=== PATIENT | female | born 1985 ===

== ENCOUNTER 2020-06-02 18:32 | Emergency (ER) | payer OTHER, SELFPAY ==
[2020-06-02 18:45] VITALS: BP 137/85; BP 168/90; PULSE 110; PULSE 99; RESP 16; TEMP 36.8; O2SAT 97; BMI 48.3
--- NOTE | 2020-06-02 19:01 | ED.PSYCH ---
HPI - Psych General Chief Complaint: Psychiatric Symptoms Stated Complaint: SI Time Seen by Provider: 06/02/20 18:56 Source: EMS Mode of arrival: EMS Limitations: no limitations History of Present Illness HPI Narrative: 35-year-old female with a past medical history of adjustment disorder, anxiety, asthma, borderline personality disorder, depression, PTSD, schizoaffective disorder here with suicidal. The patient on to the plan to overdose on her meds are for herself until she bleeds to No HI. No hallucinations. No substance use. No physical complaints. The patient does she has been intermittently compliant with her medications. MD complaint: suicidal ideation and feels depressed Onset (ago): day(s) (1 day) Duration: constant History of same: Yes Relieving factors: none Exacerbating factors: other (saw people on the bus today who brought up her mom who was a druggie ) Associated psychiatric symptoms: depression and suicidal ideation Treatments prior to arrival: none Related Data Home Medications Medication Instructions Recorded Confirmed albuterol sulfate 2 puff INHALATION Q4-6H PRN 05/15/20 06/02/20 benztropine 1 mg PO BID 05/15/20 06/02/20 cetirizine 10 mg PO DAILY 05/15/20 06/02/20 chlorpromazine 150 mg PO BID PRN 05/15/20 06/02/20 diphenhydramine HCl 100 mg PO BEDTIME 05/15/20 06/02/20 docusate sodium 200 mg PO BID 05/15/20 06/02/20 duloxetine 60 mg PO DAILY 05/15/20 06/02/20 gabapentin 600 mg PO BEDTIME 05/15/20 06/02/20 haloperidol decanoate 100 mg IM Q4W 05/15/20 06/02/20 hydroxyzine pamoate 50 mg PO BID PRN 05/15/20 06/02/20 lithium carbonate 600 mg PO BEDTIME 05/15/20 06/02/20 mirtazapine 7.5 mg PO BEDTIME 05/15/20 06/02/20 olanzapine 20 mg PO BEDTIME 05/15/20 06/02/20 omeprazole 20 mg PO DAILY@0630 05/15/20 06/02/20 prazosin 5 mg PO BEDTIME 05/15/20 06/02/20 acetaminophen 1 tab PO Q6H PRN 06/02/20 06/02/20 buspirone 30 mg PO BID 06/02/20 06/02/20 trazodone 100 mg PO BEDTIME 06/02/20 06/02/20 zolpidem 12.5 mg PO BEDTIME 06/02/20 06/02/20 Allergies Allergy/AdvReac Type Severity Reaction Status Date / Time carbamazepine [From TEGRETOL] AdvReac Unknown NAUSEA & Verified 06/02/20 19:50 VOMITING topiramate [From TOPAMAX] AdvReac Unknown NAUSEA & Verified 06/02/20 19:50 VOMITING Review of Systems Review of Systems: Yes all other systems are reviewed and are negative Constitutional: Constitutional: Reports no additional constitutional complaints, Denies body ache(s), Denies chills, Denies fever(s), Denies headache(s) and Denies weakness Eyes: Eyes: Reports no additional eye complaints and Denies change in vision ENT: Reports system reviewed and no additional complaints, except as documented, Denies dizziness, Denies headache(s), Denies nasal congestion, Denies nasal discharge and Denies neck pain Cardiovascular: Cardiovascular: Reports no additional cardiovascular complaints, Denies chest pain, Denies leg edema and Denies dyspnea Respiratory: Respiratory: Reports no additional respiratory complaints, Denies cough and Denies dyspnea Gastrointestinal: Gastrointestinal: Reports no additional gastrointestinal complaints, Denies abdominal pain, Denies diarrhea, Denies nausea and Denies vomiting Genitourinary: Genitourinary: Reports no additional female genitourinary complaints and Denies urinary incontinence Musculoskeletal: Musculoskeletal: Reports no additional musculoskeletal complaints, Denies back pain, Denies arthralgias, Denies joint swelling, Denies neck pain, Denies numbness and Denies tingling Integumentary/Breasts: Skin/Breast: Reports system reviewed and no additional complaints, except as docu and Denies rash Neurologic: Reports system reviewed and no additional complaints, except as documented, Denies Abnormal speech present, Denies dizziness, Denies headache(s), Denies numbness, Denies tingling and Denies weakness Psychiatric: Psychiatric: Denies anxiety, Reports depression, Denies visual hallucinations, Denies hallucinations, Denies homicidal ideation and Reports suicidal ideation PMFSH Past Medical History Attestation statement: The following information was validated with the patient. Source: old records reviewed and nursing notes reviewed Medical History Adjustment disorder Anxiety Asthma Borderline personality disorder Depression Intentional self-harm PTSD (post-traumatic stress disorder) Schizoaffective disorder Self-harming behavior Suicidal ideation Social History Social History Advance Directives: No Physical Exam Vital Signs: Vital Signs: Vital Signs Temp Pulse Resp BP Pulse Ox 06/02/20 19:45 98.4 F 99 18 106/82 99 06/02/20 18:45 98.3 F 99 16 137/85 97 Body Mass Index 48.3 Const: General: cooperative, healthy appearing, comfortable and no acute distress Orientation/consciousness: patient oriented x3 Limitations: no limitations HENMT: Head: Yes normal to inspection Ears: hearing grossly normal bilaterally General nose exam: Normal external nose present Face and sinus: Yes normal facial exam Mouth: Normal oral and palatal mucosa present Throat: Yes posterior oropharynx normal Eyes: General: appearance normal, both eyes and all related structures Pupils: Equal, round and reactive pupils present Neck: Neck: Yes normal visual inspection Chest: Chest palpation & inspection: normal inspection of the chest Resp: Effort & Inspection: normal respiratory effort Auscultation: clear to auscultation bilaterally Cardio: Rate: regular rate Rhythm: regular rhythm Peripheral pulses: Peripheral pulses 2+ throughout GI: Inspection: Yes normal to inspection Palpation (GI): Soft to palpation and nontender Auscultation: normal bowel sounds Back/Spine/Pelvis: Thoracic/Lumbar Spine: thoracic and lumbar spine normal to inspection Skin: General skin exam: no rashes or lesions noted Neuro: General: patient oriented x3, no focal motor deficits and normal sensation to monofilament Cranial nerves: Yes Equal, round and reactive pupils present Cognition (Neuro): normal cognition Speech: No Abnormal speech present Gait exam (Neuro): Normal gait present Motor exam (neuro): 5/5 motor strength present throughout Extrem: General: Yes normal to inspection Psych: Appearance: disheveled Mental Status: mental status grossly normal Speech and movement: Normal speech and movement present Affect: Blunted affect present Attitude: cooperative Thought process: Normal thought process present Thought content: Suicidality present Course Course Course Narrative: 35-year-old female here with suicidal. No physical complaints. No concerns for acute ingestion or trauma. Will check drug screen, urine and order BHN evaluation. MDM - Psych Restraints Face to Face Assessment: Face to Face Assessment: Current Situation: After assessment of the patient, a review of the pertinent medical record and a discussion with nursing staff, I feel the patient requires a restrain intervention. Reaction To: [] Medical Condition: [] Behavioral State: [] Continued Need: [] Discharge Plan Discharge Clinical Impression: Suicidal ideation, Bipolar disorder Prescriptions: No Action diphenhydramine HCl 50 mg Capsule 100 mg PO BEDTIME RF: 0 cetirizine 10 mg Tablet 10 mg PO DAILY RF: 0 benztropine 1 mg Tablet 1 mg PO BID RF: 0 docusate sodium 100 mg Capsule 200 mg PO BID RF: 0 albuterol sulfate 90 mcg/actuation Hfa Aerosol Inhaler 2 puff INHALATION Q4-6H PRN (Reason: Wheezing) RF: 0 gabapentin 600 mg Tablet 600 mg PO BEDTIME RF: 0 haloperidol decanoate 100 mg/mL Solution 100 mg IM Q4W RF: 0 hydroxyzine pamoate 50 mg Capsule 50 mg PO BID PRN (Reason: Anxiety) RF: 0 lithium carbonate 300 mg Tablet Extended Release 600 mg PO BEDTIME RF: 0 prazosin 5 mg Capsule 5 mg PO BEDTIME RF: 0 omeprazole 20 mg Capsule,Delayed Release(Dr/Ec) 20 mg PO DAILY@0630 RF: 0 olanzapine 20 mg Tablet 20 mg PO BEDTIME RF: 0 mirtazapine 7.5 mg Tablet 7.5 mg PO BEDTIME RF: 0 duloxetine 60 mg Capsule,Delayed Release(Dr/Ec) 60 mg PO DAILY RF: 0 chlorpromazine 50 mg Tablet 150 mg PO BID PRN (Reason: Agitation) RF: 0 acetaminophen 500 mg tablet 1 tab PO Q6H PRN (Reason: pain) RF: 0 trazodone 100 mg tablet 100 mg PO BEDTIME RF: 0 buspirone 30 mg tablet 30 mg PO BID RF: 0 zolpidem 12.5 mg tablet,ext release multiphase 12.5 mg PO BEDTIME RF: 0
[2020-06-02 19:45] VITALS: BP 106/82; PULSE 99; RESP 18; TEMP 36.9; O2SAT 99
[2020-06-02 22:12] VITALS: BP 112/64; PULSE 87
[2020-06-02] MEDS: Prazosin HCL 5 MG CAPSULE PO (22:12)
[2020-06-02] MEDS: Nicotine 21 MG PATCH.TD24 TRANSDERMA (22:12)
[2020-06-02] MEDS: Mirtazapine 7.5 MG TABLET PO (22:12)
[2020-06-02] MEDS: Docusate Sodium 100 MG CAPSULE 200 MG PO (22:13)
[2020-06-02] MEDS: Lithium Carbonate ER 300 MG TABLET.ER 600 MG PO (22:14)
[2020-06-02] MEDS: Gabapentin 600 MG TABLET PO (22:14)
[2020-06-02] MEDS: Benztropine Mesylate 1 MG TABLET PO (22:14)
[2020-06-02] MEDS: OLANZapine 10 MG TABLET 20 MG PO (22:14)
[2020-06-02] MEDS: diphenhydrAMINE HCL 25 MG TABLET 100 MG PO (22:14)
[2020-06-02] MEDS: traZODone HCL 100 MG TABLET PO (22:14)
[2020-06-02] MEDS: busPIRone HCl 10 MG TABLET 30 MG PO (22:15)
[2020-06-02 22:19] VITALS: BP 112/64; PULSE 87; RESP 18; TEMP 36.3; O2SAT 95
[2020-06-02 22:41] LABS: UPreg QC Valid YES; Urine Pregnancy NEGATIVE (NEGATIVE)
[2020-06-02 23:17] LABS: Amphetamine Screen Urine Not Detected (Not Detect); Barbiturates, Urine Not Detected (Not Detect); Benzodiazepines Screen Urine Not Detected (Not Detect); Cannabinoid Screen Urine POSITIVE (Not Detect); Cocaine Screen Urine Not Detected (Not Detect); Opiate Screen Urine Not Detected (Not Detect); Phencyclidine Screen Urine Not Detected (Not Detect)
[2020-06-03] VITALS (8 sets, daily range): BP systolic 127–150; BP diastolic 70–77; PULSE 68–95; RESP 17–18; TEMP 36.6; O2SAT 94–98
--- NOTE | 2020-06-03 01:19 | PC.NURSE ---
Per [facility], Pt will be inpatient bedsearch with section 12.
[2020-06-03] MEDS: Omeprazole 20 MG CAPSULE.DR PO (05:33)
--- NOTE | 2020-06-03 07:30 | PC.NURSE ---
Report received from haseeb Sultana. pt resting, resp unlabored. 1:[address]
[2020-06-03] MEDS: Docusate Sodium 100 MG CAPSULE 200 MG PO (08:52)
[2020-06-03] MEDS: busPIRone HCl 10 MG TABLET 30 MG PO ×2 (08:53→21:26)
[2020-06-03] MEDS: Loratadine 10 MG TABLET PO (08:53)
[2020-06-03] MEDS: Benztropine Mesylate 1 MG TABLET PO ×2 (08:53→21:26)
[2020-06-03] MEDS: DULoxetine HCl 60 MG CAPSULE.DR PO (08:53)
--- NOTE | 2020-06-03 12:01 | PC.NURSE ---
Pt complaining of headache and slight nausea. Pt offered an emesis bin and politely declines at this time. Pt states she sometimes gets migraines for which she takes Excedrin and feels like this may be a migraine coming on. Room is darkened, 1:[address] Will notify primary RN Hodan and .
[2020-06-03] MEDS: Acetaminophen 325 MG TABLET 975 MG PO (12:54)
--- NOTE | 2020-06-03 16:14 | PC.NURSE ---
Pt resting, resp unlabored.
--- NOTE | 2020-06-03 16:16 | PC.NURSE ---
Pt currently sleeping, no signs of distress, respirations nonlabored.
[2020-06-03] MEDS: Ibuprofen 600 MG TABLET PO (17:06)
--- NOTE | 2020-06-03 18:08 | PC.NURSE ---
Pt awake, alert. asking when crisis will get to ED, states that she would like to go home. pt aware that crisis will be in later this evening per [facility].
--- NOTE | 2020-06-03 20:46 | PC.NURSE ---
Pt currently asleep, no signs of distress. Respirations nonlabored. Continues to be a section 12 bed search.
[2020-06-03] MEDS: diphenhydrAMINE HCL 25 MG TABLET 100 MG PO (21:26)
[2020-06-03] MEDS: traZODone HCL 100 MG TABLET PO (21:27)
[2020-06-03] MEDS: Lithium Carbonate ER 300 MG TABLET.ER 600 MG PO (21:27)
[2020-06-03] MEDS: OLANZapine 10 MG TABLET 20 MG PO (21:27)
[2020-06-03] MEDS: Gabapentin 600 MG TABLET PO (21:27)
[2020-06-03] MEDS: Prazosin HCL 5 MG CAPSULE PO (21:57)
[2020-06-03] MEDS: Mirtazapine 7.5 MG TABLET PO (21:58)
--- NOTE | 2020-06-03 22:43 | PC.NURSE ---
Patient compliant with her HS PO medication, mood pleasant, wanted to leave to retirement stating she is ok now, patient made aware that she needs to be reevaluated in the morning. Patient in her bedd resting, observed on 1:1 for safety. Will continue to monitor.
[2020-06-04] MEDS: Omeprazole 20 MG CAPSULE.DR PO (06:17)
[2020-06-04 06:27] VITALS: BP 100/57; PULSE 90; RESP 17; TEMP 36.6; O2SAT 95
[2020-06-04] MEDS: Docusate Sodium 100 MG CAPSULE 200 MG PO (08:26)
[2020-06-04] MEDS: DULoxetine HCl 60 MG CAPSULE.DR PO (08:26)
[2020-06-04] MEDS: Benztropine Mesylate 1 MG TABLET PO (08:26)
[2020-06-04] MEDS: busPIRone HCl 10 MG TABLET 30 MG PO (08:26)
[2020-06-04] MEDS: Loratadine 10 MG TABLET PO (08:26)
--- NOTE | 2020-06-04 09:33 | PC.NURSE ---
Pt affect very bright, denies si, reports she is anxious to go home. pt states she has a bus pass that she uses to go home.
== END 2020-06-04 09:49 | disposition home or self-care (01) ==
PROVIDERS: Nurse Practitioner Family; Emergency Provider Emergency Medicine
DX: R45.851 Suicidal ideations (principal); F31.9 Bipolar disorder, unspecified; F32.9 Major depressive disorder, single episode, unspecified; Z91.5 Personal history of self-harm; F43.10 Post-traumatic stress disorder, unspecified; F17.200 Nicotine dependence, unspecified, uncomplicated; Z79.899 Other long term (current) drug therapy
CPT/HCPCS: 80307; 81025; 99285; Q0163

== ENCOUNTER 2020-06-15 20:14 | Emergency (ER) | payer OTHER, SELFPAY ==
[2020-06-15 20:24] VITALS: BP 133/60; PULSE 100; RESP 16; TEMP 36.8; O2SAT 99; BMI 58.6
--- NOTE | 2020-06-15 20:42 | XR_ITS ---
EXAMINATION: XR CHEST CLINICAL INFORMATION: Shortness of breath. COMPARISON: Most recent chest radiograph dated 03/24/2020. TECHNIQUE: 2 views of the chest were obtained. FINDINGS: Redemonstration of a left chest wall port in unchanged position. No new airspace consolidation. No pleural effusion or pneumothorax. Stable cardiomediastinal silhouette. XR/XR chest 2V IMPRESSION: No acute cardiopulmonary findings.
--- NOTE | 2020-06-15 20:42 | ED.SOB ---
HPI - SOB/Dyspnea General Chief Complaint: Dyspnea Stated Complaint: DIFF BREATHING Time Seen by Provider: 06/15/20 20:42 Source: patient Mode of arrival: EMS Limitations: no limitations and other (mentla illness) History of Present Illness HPI Narrative: 35 year old female comes in via EMS with c/o shortness of breath / dyspnea. She is a smoker, knows this contributes heavily to0 her asthma issues. No COVID-19 exposure, no recnet fevers. She admits to cough however attributes this to her allergies and her smoking. MD elicited complaint: shortness of breath and cough Pertinent past history: asthma Onset (ago): day(s) (2-3 days ago) Context: allergen exposure Timing: intermittent Severity: mild Exacerbating factors: allergies and other (smoking) Relieving factors: rest and cool air Known history of: asthma Associated symptoms: cough Treatment prior to arrival: none Related Data Home Medications Medication Instructions Recorded Confirmed albuterol sulfate 2 puff INHALATION Q4-6H PRN 05/15/20 06/02/20 benztropine 1 mg PO BID 05/15/20 06/02/20 cetirizine 10 mg PO DAILY 05/15/20 06/02/20 chlorpromazine 150 mg PO BID PRN 05/15/20 06/02/20 diphenhydramine HCl 100 mg PO BEDTIME 05/15/20 06/02/20 docusate sodium 200 mg PO BID 05/15/20 06/02/20 duloxetine 60 mg PO DAILY 05/15/20 06/02/20 gabapentin 600 mg PO BEDTIME 05/15/20 06/02/20 haloperidol decanoate 100 mg IM Q4W 05/15/20 06/02/20 hydroxyzine pamoate 50 mg PO BID PRN 05/15/20 06/02/20 lithium carbonate 600 mg PO BEDTIME 05/15/20 06/02/20 mirtazapine 7.5 mg PO BEDTIME 05/15/20 06/02/20 olanzapine 20 mg PO BEDTIME 05/15/20 06/02/20 omeprazole 20 mg PO DAILY@0630 05/15/20 06/02/20 prazosin 5 mg PO BEDTIME 05/15/20 06/02/20 acetaminophen 1 tab PO Q6H PRN 10/18/20 10/18/20 buspirone 30 mg PO BID 06/02/20 06/02/20 trazodone 100 mg PO BEDTIME 06/02/20 06/02/20 zolpidem 12.5 mg PO BEDTIME 06/02/20 06/02/20 Allergies Allergy/AdvReac Type Severity Reaction Status Date / Time carbamazepine [From TEGRETOL] AdvReac Unknown NAUSEA & Verified 06/02/20 19:50 VOMITING topiramate [From TOPAMAX] AdvReac Unknown NAUSEA & Verified 06/02/20 19:50 VOMITING Review of Systems Constitutional: Constitutional: Reports fever(s) (subjective), Denies headache(s) and Denies weakness Eyes: Eyes: Denies change in vision and Denies eye pain ENT: Reports Normal hearing present, Denies headache(s) and Denies sore throat Cardiovascular: Cardiovascular: Denies chest pain, Denies palpitations and Reports dyspnea Respiratory: Respiratory: Reports chest congestion, Denies cough, Reports dyspnea and Denies wheezing Gastrointestinal: Gastrointestinal: Denies abdominal pain, Denies change in bowel habits, Denies constipation, Denies diarrhea, Denies nausea and Denies vomiting Genitourinary: Genitourinary: Denies urinary frequency, Denies dysuria, Denies flank pain and Denies urinary incontinence Musculoskeletal: Musculoskeletal: Denies back pain, Denies myalgias and Denies muscle weakness Integumentary/Breasts: Skin/Breast: Denies change in hair, Denies pruritus, Denies erythema, Denies rash, Denies unusual bruising and Denies wounds Neurologic: Reports Normal hearing present, Reports Abnormal speech present, Denies headache(s), Denies memory loss, Denies paresthesias, Denies tremor(s) and Denies weakness Psychiatric: Psychiatric: Denies anxiety, Denies depression, Denies irritability and Denies memory loss Endocrine: Endocrine: Denies change in body appearance and Denies palpitations Hematologic/Lymphatic: Hematologic/Lymphatic: Denies easy bleeding, Denies easy bruising and Denies lymphadenopathy Allergic/Immunologic: Allergic/Immunologic: Denies wheezing PMFSH Past Medical History Medical History Adjustment disorder Anxiety Asthma Borderline personality disorder Depression Intentional self-harm PTSD (post-traumatic stress disorder) Schizoaffective disorder Self-harming behavior Suicidal ideation Social History Social History Alcohol intake: never Smoking Status: Current every day smoker Advance Directives: No Physical Exam Vital Signs: Vital Signs: Vital Signs Temp Pulse Resp BP Pulse Ox 06/15/20 20:24 98.2 F 100 16 133/60 99 Body Mass Index 58.6 Const: General: cooperative, healthy appearing, comfortable, no acute distress, well developed, alert, awake and well groomed Nutritional Appearance: average body habitus Orientation/consciousness: patient oriented x3 Limitations: no limitations HENMT: Head: Yes normal to inspection Ears: hearing grossly normal bilaterally Mouth: Normal oral and palatal mucosa present Throat: Yes posterior oropharynx normal Eyes: General: appearance normal, both eyes and all related structures Neck: Neck: Yes full ROM, Yes no meningeal signs, Yes trachea midline, Yes supple, Yes bilateral parotid enlargement, No lymphadenopathy and Yes tender Thyroid: Thyroid normal Lymphatic: no lymphadenopathy noted Chest: Chest palpation & inspection: normal inspection of the chest and normal palpation of entire chest wall Resp: Effort & Inspection: normal respiratory effort and able to speak in complete sentences Auscultation: clear to auscultation bilaterally, no crackles, no rales, no rhonchi and no wheezes Cardio: Rate: regular rate Rhythm: regular rhythm GI: Inspection: Yes normal to inspection : General: Yes no CVA tenderness Back/Spine/Pelvis: Back: no CVA tenderness Cervical Spine: normal cervical lordosis and cervical ROM normal Thoracic/Lumbar Spine: thoracic and lumbar spine normal to inspection Skin: General skin exam: no rashes or lesions noted Lesions: no lesions Rashes: no rashes Neuro: General: patient oriented x3 and no meningeal signs Cranial nerves: Yes Normal hearing present Cognition (Neuro): normal cognition Speech: Abnormal speech present Gait exam (Neuro): Normal gait present Motor exam (neuro): 5/5 motor strength present throughout Sensory Exam: Normal double simultaneous stimulation for sensation Extrem: General: Yes normal to inspection and Yes no pedal edema Psych: Appearance: grossly normal Mental Status: mental status grossly normal Speech and movement: Normal speech and movement present Affect: normal affect Attitude: cooperative Thought process: Normal thought process present Thought content: Normal thought content present Insight: Good insight present (Psych) Judgement: Good judgement present (Psych) Course Course Course Narrative: evaluated for shortness of breath and chest congestion x 2-3 days. H/O asthma, is a smoker. MDM - SOB/Dyspnea MDM Narrative Medical decision making narrative: Asthma Differential Diagnosis Differential diagnosis: Likely pneumonia and asthma with exacerbation Imaging Data Chest x-ray: Radiologist's impression: [facility] [address] [place] [address] XRay Report Signed Patient: Mima Blum#: [id number] : 10/25/2002Acct:[id number] Age/Sex: 17 / FADM Date: 06/15/20 Loc: .ED Attending Dr: Ordering Physician: BOB DAWN Date of Service: 06/15/20 Procedure(s): XR chest 2V Accession Number(s): [id number] cc: BOB DAWN~ EXAMINATION: XR CHEST CLINICAL INFORMATION: Shortness of breath. Chest tightness. COMPARISON: Chest radiograph dated 10/09/2019. TECHNIQUE: 2 views of the chest were obtained. FINDINGS: The lungs are clear. The cardiomediastinal silhouette is normal in size. There is no pleural effusion or pneumothorax. No acute osseous abnormality. XR/XR chest 2V IMPRESSION: No acute cardiopulmonary findings. Dictated By:DANIEL KEMP MD Signed By:<Electronically signed by DANIEL KEMP MD in OV>06/15/202028 DD/ 00 TD/TT: Diabetic Educator: Discharge Plan Discharge Clinical Impression: Asthma, Asthma with exacerbation Patient Disposition: Home, Self-Care Additional Instructions: Smoking cessation is recommended Follow up with your Primary Care for follow up and possible pulmonolgy referral Prescriptions: No Action diphenhydramine HCl 50 mg Capsule 100 mg PO BEDTIME RF: 0 cetirizine 10 mg Tablet 10 mg PO DAILY RF: 0 benztropine 1 mg Tablet 1 mg PO BID RF: 0 docusate sodium 100 mg Capsule 200 mg PO BID RF: 0 albuterol sulfate 90 mcg/actuation Hfa Aerosol Inhaler 2 puff INHALATION Q4-6H PRN (Reason: Wheezing) RF: 0 gabapentin 600 mg Tablet 600 mg PO BEDTIME RF: 0 haloperidol decanoate 100 mg/mL Solution 100 mg IM Q4W RF: 0 hydroxyzine pamoate 50 mg Capsule 50 mg PO BID PRN (Reason: Anxiety) RF: 0 lithium carbonate 300 mg Tablet Extended Release 600 mg PO BEDTIME RF: 0 prazosin 5 mg Capsule 5 mg PO BEDTIME RF: 0 omeprazole 20 mg Capsule,Delayed Release(Dr/Ec) 20 mg PO DAILY@0630 RF: 0 olanzapine 20 mg Tablet 20 mg PO BEDTIME RF: 0 mirtazapine 7.5 mg Tablet 7.5 mg PO BEDTIME RF: 0 duloxetine 60 mg Capsule,Delayed Release(Dr/Ec) 60 mg PO DAILY RF: 0 chlorpromazine 50 mg Tablet 150 mg PO BID PRN (Reason: Agitation) RF: 0 acetaminophen 500 mg tablet 1 tab PO Q6H PRN (Reason: pain) RF: 0 trazodone 100 mg tablet 100 mg PO BEDTIME RF: 0 buspirone 30 mg tablet 30 mg PO BID RF: 0 zolpidem 12.5 mg tablet,ext release multiphase 12.5 mg PO BEDTIME RF: 0
== END 2020-06-15 21:16 | disposition home or self-care (01) ==
PROVIDERS: Emergency Provider Internal Medicine
DX: J45.901 Unspecified asthma with (acute) exacerbation (principal); F17.200 Nicotine dependence, unspecified, uncomplicated; Z71.6 Tobacco abuse counseling; Z79.899 Other long term (current) drug therapy
CPT/HCPCS: 71046; 99283

== ENCOUNTER 2020-06-24 10:13 | Emergency (ER) | payer OTHER, SELFPAY ==
--- NOTE | 2020-06-24 10:23 | ED.PSYCH ---
HPI - Psych General Chief Complaint: Psychiatric Symptoms Stated Complaint: CRISIS Time Seen by Provider: 06/24/20 10:23 Source: patient Mode of arrival: ambulatory Limitations: no limitations History of Present Illness MD complaint: suicidal ideation and feels depressed Onset (ago): day(s) (2) Duration: constant History of same: Yes Relieving factors: none Exacerbating factors: none Context: significant life stressor Associated psychiatric symptoms: depression and suicidal ideation Associated symptoms: other (chronic knee pain) Treatments prior to arrival: none If self harm: admits thoughts of self harm Related Data Home Medications Medication Instructions Recorded Confirmed albuterol sulfate 2 puff INHALATION Q4-6H PRN 05/15/20 06/24/20 cetirizine 10 mg PO DAILY 05/15/20 06/24/20 chlorpromazine 150 mg PO Q4H PRN 05/15/20 06/24/20 diphenhydramine HCl 100 mg PO BEDTIME 05/15/20 06/24/20 docusate sodium 200 mg PO BID 05/15/20 06/24/20 duloxetine 60 mg PO DAILY 05/15/20 06/24/20 gabapentin 600 mg PO BEDTIME 05/15/20 06/24/20 haloperidol decanoate 100 mg IM Q4W 05/15/20 06/24/20 hydroxyzine pamoate 50 mg PO TID PRN 05/15/20 06/24/20 lithium carbonate 600 mg PO BEDTIME 05/15/20 06/24/20 olanzapine 20 mg PO BEDTIME 05/15/20 06/24/20 omeprazole 20 mg PO DAILY@0630 05/15/20 06/24/20 prazosin 5 mg PO BEDTIME 05/15/20 06/24/20 acetaminophen 650 mg PO Q6H PRN 06/02/20 06/24/20 trazodone 100 mg PO BEDTIME 06/02/20 06/24/20 zolpidem 12.5 mg PO BEDTIME 06/02/20 06/24/20 amoxicillin 1 cap PO Q6H 06/24/20 06/24/20 diphenhydramine HCl [Banophen] PO 06/24/20 haloperidol 1 tab PO BID PRN 06/24/20 06/24/20 ibuprofen 1 tab PO QID PRN 06/24/20 06/24/20 lorazepam 1 tab PO QID PRN 06/24/20 06/24/20 quetiapine 1 tab PO BEDTIME 06/24/20 06/24/20 Allergies Allergy/AdvReac Type Severity Reaction Status Date / Time carbamazepine [From TEGRETOL] AdvReac Unknown NAUSEA & Verified 06/02/20 19:50 VOMITING topiramate [From TOPAMAX] AdvReac Unknown NAUSEA & Verified 06/02/20 19:50 VOMITING Review of Systems Review of Systems: Constitutional : No Fever, No Chills ENT/Mouth : No Ear Pain, No Nasal Congestion, No sore throat Eyes: No Eye Pain, No Swelling, No Redness Cardiovascular : No Chest Pain, No SOB Respiratory : No Cough, No Sputum, No Dyspnea Gastrointestinal : No Nausea, No Vomiting, No Diarrhea, No Hematochezia, No Melena Genitourinary : No Dysuria, No Urinary Frequency, No Hematuria Musculoskeletal : No Myalgias Skin : No Skin Lesions, No rash Neuro : No Weakness, No Numbness, No Paresthesias, No Dizziness, No Headache Psych : positive Anxiety, positive Depression, positive SI, no HI Heme/Lymph: No Lymphadenopathy Endocrine : No Polyuria, No Polydipsia All other systems reviewed and are negative PMFSH Past Medical History Attestation statement: The following information was validated with the patient. Medical History Adjustment disorder Anxiety Asthma Borderline personality disorder Depression Intentional self-harm PTSD (post-traumatic stress disorder) Schizoaffective disorder Self-harming behavior Suicidal ideation Social History Social History Alcohol intake: never Smoking Status: Current every day smoker Smoked in Last 30 Days: Yes Use of substances other than those prescribed or required for medical reasons: No Advance Directives: No Advance Directives Information Provided: Yes Physical Exam Vital Signs: Vital Signs: Last Vital Signs Temp 98.8 F 06/24/20 11:09 Pulse 89 06/24/20 11:09 Resp 18 06/24/20 11:09 BP 122/72 06/24/20 11:09 Pulse Ox 98 06/24/20 11:09 Body Mass Index 45.7 Appearance: Alert. Oriented X3. No acute distress. Eyes: Pupils equal, round and reactive to light. ENT: Pharynx normal. Neck: Normal inspection. Neck supple. CVS: Normal heart rate and rhythm. Pulses normal. Respiratory: No respiratory distress. Breath sounds normal. Abdomen: Soft and nontender. Skin: Skin warm and dry. Normal skin color. Normal skin turgor. L heel calloused area - picked apart but no overt infection Extremities: No lower extremity edema. No calf ttp chronic knee pain Neuro: Oriented X 3. No motor deficit. No sensory deficit. CN intact Course Course Course Narrative: signed out to Dr. Chau pending [facility] MDM - Psych MDM Narrative Medical decision making narrative: 35 yo female with extensive mental health issues presents in crisis at this time will obtain labs and order [facility] consult, wound care to L heel - knee brace for chronic knee pain, PRN medications Restraints Face to Face Assessment: [] Lab Data Labs: Lab Results 06/24/20 06/24/20 Range/Units 13:41 13:41 Urine Test NEGATIVE (NEGATIVE) Urine Opiates Screen Not Detected (Not Detect) Ur Barbiturates Screen Not Detected (Not Detect) Ur Phencyclidine Scrn Not Detected (Not Detect) Ur Amphetamines Screen Not Detected (Not Detect) U Benzodiazepines Scrn Not Detected (Not Detect) Urine Cocaine Screen Not Detected (Not Detect) U Marijuana (THC) Screen POSITIVE H (Not Detect) Discharge Plan Discharge Clinical Impression: Acute post-traumatic stress disorder Prescriptions: No Action diphenhydramine HCl 50 mg Capsule 100 mg PO BEDTIME RF: 0 cetirizine 10 mg Tablet 10 mg PO DAILY RF: 0 docusate sodium 100 mg Capsule 200 mg PO BID RF: 0 albuterol sulfate 90 mcg/actuation Hfa Aerosol Inhaler 2 puff INHALATION Q4-6H PRN (Reason: Wheezing) RF: 0 gabapentin 600 mg Tablet 600 mg PO BEDTIME RF: 0 haloperidol decanoate 100 mg/mL Solution 100 mg IM Q4W RF: 0 hydroxyzine pamoate 50 mg Capsule 50 mg PO TID PRN (Reason: Anxiety) RF: 0 lithium carbonate 300 mg Tablet Extended Release 600 mg PO BEDTIME RF: 0 prazosin 5 mg Capsule 5 mg PO BEDTIME RF: 0 omeprazole 20 mg Capsule,Delayed Release(Dr/Ec) 20 mg PO DAILY@0630 RF: 0 olanzapine 20 mg Tablet 20 mg PO BEDTIME RF: 0 duloxetine 60 mg Capsule,Delayed Release(Dr/Ec) 60 mg PO DAILY RF: 0 chlorpromazine 50 mg Tablet 150 mg PO Q4H PRN (Reason: Agitation) RF: 0 acetaminophen 500 mg tablet 650 mg PO Q6H PRN (Reason: pain) RF: 0 trazodone 100 mg tablet 100 mg PO BEDTIME RF: 0 zolpidem 12.5 mg tablet,ext release multiphase 12.5 mg PO BEDTIME RF: 0 amoxicillin 500 mg capsule 1 cap PO Q6H RF: 0 haloperidol 5 mg tablet 1 tab PO BID PRN (Reason: psychosis) RF: 0 diphenhydramine HCl [Banophen] 50 mg capsule PO RF: 0 lorazepam 1 mg tablet 1 tab PO QID PRN (Reason: anxiety) RF: 0 ibuprofen 600 mg tablet 1 tab PO QID PRN (Reason: severe pain) RF: 0 quetiapine 400 mg tablet 1 tab PO BEDTIME RF: 0
[2020-06-24 11:09] VITALS: BP 122/72; PULSE 89; RESP 18; TEMP 37.1; O2SAT 98; BMI 45.7
--- NOTE | 2020-06-24 12:17 | PC.NURSE ---
[facility]LAKE faxed and called, Magdalena stated it will be a while before PT can be seen because there are a lot of people on the list before her.
[2020-06-24 14:01] LABS: UPreg QC Valid YES; Urine Pregnancy NEGATIVE (NEGATIVE)
--- NOTE | 2020-06-24 14:19 | PC.NURSE ---
Pt resting, states that she did take her medications this morning, no complaints at this time. Pt remains on 1:1 for safety.
[2020-06-24 14:34] LABS: Amphetamine Screen Urine Not Detected (Not Detect); Barbiturates, Urine Not Detected (Not Detect); Benzodiazepines Screen Urine Not Detected (Not Detect); Cannabinoid Screen Urine POSITIVE (Not Detect); Cocaine Screen Urine Not Detected (Not Detect); Opiate Screen Urine Not Detected (Not Detect); Phencyclidine Screen Urine Not Detected (Not Detect)
[2020-06-24] MEDS: Albuterol Sulfate 90 MCG 8 GM INHALER 2 PUFF INHALE (17:05)
== END 2020-06-24 18:32 | disposition home or self-care (01) ==
PROVIDERS: Emergency Provider Emergency Medicine
DX: F33.1 Major depressive disorder, recurrent, moderate (principal); F43.11 Post-traumatic stress disorder, acute; R45.851 Suicidal ideations; Z79.899 Other long term (current) drug therapy; F17.200 Nicotine dependence, unspecified, uncomplicated; Z71.6 Tobacco abuse counseling
CPT/HCPCS: 80307; 81025; 99284

== ENCOUNTER 2020-06-28 23:48 | Emergency (ER) | payer OTHER, SELFPAY ==
[2020-06-29 00:16] VITALS: BP 126/74; PULSE 86; RESP 18; TEMP 36.5; O2SAT 98; BMI 48.4
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
[2020-06-29 00:46] LABS: Glucose Urine UA NEG (NEG); Leukocyte Esterase Urine NEG (NEG); Nitrite Urine NEG (NEG); PH 6.5 (5.0-8.0); Urine Blood NEG (NEG); Urine Ketones NEG (NEG); Urine Protein NEG (NEG-TRACE)
[2020-06-29 00:47] LABS: Appearance Urine HAZY; Color Urine YELLOW; UACC Culture Trigger NO
[2020-06-29 00:48] LABS: UPreg QC Valid YES; Urine Pregnancy NEGATIVE (NEGATIVE)
[2020-06-29 01:02] LABS: Amphetamine Screen Urine Not Detected (Not Detect); Barbiturates, Urine Not Detected (Not Detect); Benzodiazepines Screen Urine Not Detected (Not Detect); Cannabinoid Screen Urine POSITIVE (Not Detect); Cocaine Screen Urine Not Detected (Not Detect); Opiate Screen Urine Not Detected (Not Detect); Phencyclidine Screen Urine Not Detected (Not Detect)
[2020-06-29 06:53] VITALS: BP 135/74; PULSE 84; RESP 17; TEMP 36.7; O2SAT 91
--- NOTE | 2020-06-29 07:11 | PC.NURSE ---
Report recieved. PT currently sleeping, respirations even and unlabored, in no apparent distress. PT to be re-evaluated by N.
== END 2020-06-29 09:14 | disposition home or self-care (01) ==
PROVIDERS: Emergency Provider Emergency Medicine
DX: R44.0 Auditory hallucinations (principal); R44.1 Visual hallucinations; R45.851 Suicidal ideations; Z79.899 Other long term (current) drug therapy; F17.200 Nicotine dependence, unspecified, uncomplicated; Z71.6 Tobacco abuse counseling
CPT/HCPCS: 80307; 81003; 81025; 99284

== ENCOUNTER 2020-07-02 16:03 | Emergency (ER) | payer OTHER, SELFPAY ==
[2020-07-02 16:41] VITALS: BP 139/79; PULSE 89; RESP 18; TEMP 36.1; O2SAT 97; BMI 48.4
--- NOTE | 2020-07-02 16:48 | ED.PSYCH ---
HPI - Psych General Chief Complaint: Psychiatric Symptoms Stated Complaint: CRISIS Time Seen by Provider: 07/02/20 17:35 Source: EMS Mode of arrival: EMS Limitations: no limitations History of Present Illness HPI Narrative: States feeling increasingly depressed and suicidal. The anniversary of sister's was last week and this has triggered her symptoms to become more worse. MD complaint: suicidal ideation Onset (ago): day(s) History of same: Yes Relieving factors: none Exacerbating factors: none Treatments prior to arrival: none Related Data Home Medications Medication Instructions Recorded Confirmed albuterol sulfate 2 puff INHALATION Q4-6H PRN 05/15/20 06/24/20 cetirizine 10 mg PO DAILY 05/15/20 06/24/20 chlorpromazine 150 mg PO Q4H PRN 05/15/20 06/24/20 diphenhydramine HCl 100 mg PO BEDTIME 05/15/20 06/24/20 docusate sodium 200 mg PO BID 05/15/20 06/24/20 duloxetine 60 mg PO DAILY 05/15/20 06/24/20 gabapentin 600 mg PO BEDTIME 05/15/20 06/24/20 haloperidol decanoate 100 mg IM Q4W 05/15/20 06/24/20 hydroxyzine pamoate 50 mg PO TID PRN 05/15/20 06/24/20 lithium carbonate 600 mg PO BEDTIME 05/15/20 06/24/20 olanzapine 20 mg PO BEDTIME 05/15/20 06/24/20 omeprazole 20 mg PO DAILY@0630 05/15/20 06/24/20 prazosin 5 mg PO BEDTIME 05/15/20 06/24/20 acetaminophen 650 mg PO Q6H PRN 06/02/20 06/24/20 trazodone 100 mg PO BEDTIME 06/02/20 06/24/20 zolpidem 12.5 mg PO BEDTIME 06/02/20 06/24/20 amoxicillin 1 cap PO Q6H 06/24/20 06/24/20 diphenhydramine HCl [Banophen] PO 06/24/20 haloperidol 1 tab PO BID PRN 06/24/20 06/24/20 ibuprofen 1 tab PO QID PRN 06/24/20 06/24/20 lorazepam 1 tab PO QID PRN 06/24/20 06/24/20 quetiapine 1 tab PO BEDTIME 06/24/20 06/24/20 Allergies Allergy/AdvReac Type Severity Reaction Status Date / Time carbamazepine [From TEGRETOL] AdvReac Unknown NAUSEA & Verified 06/02/20 19:50 VOMITING topiramate [From TOPAMAX] AdvReac Unknown NAUSEA & Verified 06/02/20 19:50 VOMITING Review of Systems Review of Systems: Constitutional: No Weight loss, No Fever, No Chills, No Night Sweats, No Fatigue, No Malaise ENT/Mouth: No Hearing loss, No Ear Pain, No Nasal Congestion, No Sinus Pain, No Hoarseness, No sore throat, No Rhinorrhea, No Swallowing Difficulty Eyes: No Eye Pain, No Swelling, No Redness, No Foreign Body, No Discharge, No Vision Changes Cardiovascular: No Chest Pain, No SOB, No Dyspnea on Exertion, No Orthopnea, No Edema, No Palpitations Respiratory: No Cough, No Sputum, No Wheezing, No Smoke Exposure, No Dyspnea Gastrointestinal: No Nausea, No Vomiting, No Diarrhea, No Constipation, No abdominal Pain, No Hematochezia, No Melena Genitourinary: no irregular bleeding, No Dysuria, No Urinary Frequency, No Hematuria, No Urinary Incontinence, No Urgency, No Flank Pain, No Urinary Flow Changes, No Hesitancy Musculoskeletal: No joint pain, No Myalgias, No Joint Swelling Skin: No Skin Lesions, No rash Neuro: No Weakness, No Numbness, No Paresthesias, No Loss of Consciousness, No Dizziness, No Headache Psych:As noted in HPI Heme/Lymph: No Bruising, No Bleeding,No Lymphadenopathy Endocrine: No Polyuria, No Polydipsia, No Temperature Intolerance Yes all other systems are reviewed and are negative [facility] Past Medical History Attestation statement: The following information was validated with the patient. Medical History Adjustment disorder Anxiety Asthma Borderline personality disorder Depression Intentional self-harm PTSD (post-traumatic stress disorder) Schizoaffective disorder Self-harming behavior Suicidal ideation Social History Social History Alcohol intake: never Smoking Status: Current every day smoker Use of substances other than those prescribed or required for medical reasons: Yes Substance Use Type: Marijuana Advance Directives: No Advance Directives Information Provided: Yes Physical Exam Vital Signs: Vital Signs: Last Vital Signs Temp 97.0 F 07/02/20 16:41 Pulse 89 07/02/20 17:12 Resp 18 07/02/20 16:41 BP 139/79 07/02/20 16:41 Pulse Ox 97 07/02/20 16:41 Body Mass Index 48.4 Const: General: cooperative and healthy appearing; No acute distress or intoxicated appearing Nutritional Appearance: average body habitus Orientation/consciousness: patient oriented x3 HENMT: Head: Yes normal to inspection Ears: hearing grossly normal bilaterally Eyes: General: appearance normal, both eyes and all related structures Visual Weber: normal visual weber by confrontation Neck: Neck: Yes normal visual inspection and No tender Thyroid: Thyroid normal Chest: Chest palpation & inspection: normal inspection of the chest Resp: Effort & Inspection: normal respiratory effort Cardio: Jugular venous distension: no JVD GI: Inspection: Yes normal to inspection Percussion: Yes normal to percussion Auscultation: normal bowel sounds : General: Yes no CVA tenderness Back/Spine/Pelvis: Back: no CVA tenderness Skin: Other: Diffusely were the skin of bilateral upper and lower extremities there are old healed self-inflicted laceration zaldivar. General skin exam: no rashes or lesions noted Neuro: General: patient oriented x3 Extrem: General: Yes normal to inspection Course Course Course Narrative: Interview 35-year-old female with extensive psychiatric history well-known to this facility presenting from custodial and was filled with complaint of suicidal ideation. Will need labs offers no medical complaints. Will need psychiatric evaluation. Reevaluation(s) Reevaluation #1: 1800 Sign out to Binh SOLOMON pending lab review and psychiatric evaluation MDM - Psych Restraints Face to Face Assessment: Face to Face Assessment: Current Situation: After assessment of the patient, a review of the pertinent medical record and a discussion with nursing staff, I feel the patient requires a restrain intervention. Reaction To: [] Medical Condition: [] Behavioral State: [] Continued Need: [] Discharge Plan Discharge Prescriptions: No Action diphenhydramine HCl 50 mg Capsule 100 mg PO BEDTIME RF: 0 cetirizine 10 mg Tablet 10 mg PO DAILY RF: 0 docusate sodium 100 mg Capsule 200 mg PO BID RF: 0 albuterol sulfate 90 mcg/actuation Hfa Aerosol Inhaler 2 puff INHALATION Q4-6H PRN (Reason: Wheezing) RF: 0 gabapentin 600 mg Tablet 600 mg PO BEDTIME RF: 0 haloperidol decanoate 100 mg/mL Solution 100 mg IM Q4W RF: 0 hydroxyzine pamoate 50 mg Capsule 50 mg PO TID PRN (Reason: Anxiety) RF: 0 lithium carbonate 300 mg Tablet Extended Release 600 mg PO BEDTIME RF: 0 prazosin 5 mg Capsule 5 mg PO BEDTIME RF: 0 omeprazole 20 mg Capsule,Delayed Release(Dr/Ec) 20 mg PO DAILY@0630 RF: 0 olanzapine 20 mg Tablet 20 mg PO BEDTIME RF: 0 duloxetine 60 mg Capsule,Delayed Release(Dr/Ec) 60 mg PO DAILY RF: 0 chlorpromazine 50 mg Tablet 150 mg PO Q4H PRN (Reason: Agitation) RF: 0 acetaminophen 500 mg tablet 650 mg PO Q6H PRN (Reason: pain) RF: 0 trazodone 100 mg tablet 100 mg PO BEDTIME RF: 0 zolpidem 12.5 mg tablet,ext release multiphase 12.5 mg PO BEDTIME RF: 0 amoxicillin 500 mg capsule 1 cap PO Q6H RF: 0 haloperidol 5 mg tablet 1 tab PO BID PRN (Reason: psychosis) RF: 0 diphenhydramine HCl [Banophen] 50 mg capsule PO RF: 0 lorazepam 1 mg tablet 1 tab PO QID PRN (Reason: anxiety) RF: 0 ibuprofen 600 mg tablet 1 tab PO QID PRN (Reason: severe pain) RF: 0 quetiapine 400 mg tablet 1 tab PO BEDTIME RF: 0
[2020-07-02] MEDS: Albuterol Sulfate 90 MCG 8 GM INHALER 2 PUFF INHALE (17:07)
[2020-07-02 17:12] VITALS: PULSE 89; O2SAT 97
[2020-07-02] MEDS: LORazepam 1 MG TABLET 2 MG PO (17:43)
--- NOTE | 2020-07-02 17:43 | PC.NURSE ---
medicated due to agitation
[2020-07-02 18:46] LABS: Basophils Percent Auto 0.4 % (0-2); Eosinophils Percent Auto 0.6 % (0-4); Hemoglobin 10.8 g/dl (12.0-16.0); MANUAL DIFF FLAG SCAN; Mean Platelet Volume 10.9 fL (9.4-12.3); PLT CLUMP 1; SCAN SMEAR FLAG 1
[2020-07-02 18:48] LABS: Hematocrit 33.4 % (37-47); Imm Gran Abs Auto 0.02 X10*3/uL (0.00-0.03); Imm Gran Pct Auto 0.3 % (0.0-0.4); Lymphocytes Absolute Auto 2.8 X10*3/uL (1.2-4.9); Lymphocytes Percent Auto 38.1 % (20-40); Mean Corpuscular HGB Conc 32.3 g/dl (31.0-35.0); Mean Corpuscular Hemoglobin 27.6 pg (27.0-33.0); Mean Corpuscular Volume 85.2 fL (80-98); Monocytes Absolute Auto 0.4 X10*3/uL (0.1-1.2); Monocytes Percent Auto 5.4 % (2-11); Neutrophils Percent Auto 55.2 % (45-73); Platelet Count 297 X10*3/uL (160-400); Red Blood Count 3.92 X10*6/uL (4.20-5.50); Red Cell Distribution Width 16.2 % (11.0-16.0); White Blood Count 7.3 X10*3/uL (4.8-10.8)
[2020-07-02 18:51] LABS: SLIDE REVIEW VERIFIED
[2020-07-02 19:13] LABS: Alanine Aminotransferase 12 U/L (0-31); Albumin Level 3.8 g/dL (3.5-5.0); Alkaline Phosphatase 66 U/L (39-117); Anion Gap 13 (12-20); Aspartate Amino Transferase 18 U/L (5-31); Bilirubin Total 0.2 mg/dL (0.0-1.0); Blood Urea Nitrogen 10 mg/dL (9-16); Calcium 8.2 mg/dL (8.4-10.2); Carbon Dioxide 19 mmol/L (22-29); Chloride 109 mmol/L (96-108); Creatinine Clr Calc Pharmacy 114.3; Estimated Glomerular Filt Rate > 60; Glucose Random 78 mg/dL (60-115); Lipase 30 U/L (8-78); Potassium 4.4 mmol/l (3.3-5.1); Sodium 137 mmol/L (135-145); Total Protein 6.5 g/dL (6.5-8.0)
[2020-07-02 19:24] VITALS: BP 102/51; PULSE 87; RESP 16; TEMP 36.4; O2SAT 99
[2020-07-02 20:00] VITALS: RESP 14
--- NOTE | 2020-07-02 21:27 | PC.NURSE ---
[facility] called to confirm that they received our request for consult. They stated that they have just received the fax and are unable to give a time estimate for evaluation at this time.
--- NOTE | 2020-07-02 22:40 | PC.NURSE ---
Patient just got transferred to main ED, Jzalyn faxed/called/spoke with Jose E/confirmed receipt of referral, will continue to monitor
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
--- NOTE | 2020-07-03 01:16 | PC.NURSE ---
custodial called at [phone]/requested to fax MAR/fax received/med rec completed/provider notified for approval/pending MAR update, will continue to monitor.
--- NOTE | 2020-07-03 02:31 | PC.NURSE ---
Patient in bed appears sleeping, no distress observed/reported, will continue to monitor.
[2020-07-03] MEDS: Omeprazole 20 MG CAPSULE.DR PO (06:13)
[2020-07-03 06:25] VITALS: BP 123/54; PULSE 76; RESP 18; TEMP 36.3; O2SAT 97
--- NOTE | 2020-07-03 07:29 | PC.NURSE ---
REPORT TAKEN FROM JAMAL WOOD. PT SLEEPING IN ROOM AT THIS TIME. WAITING TO BE SEEN NETTE LOZANO.
--- NOTE | 2020-07-03 09:09 | MHC.CARE ---
CARE team contacted [facility] spoke w Magdalena regarding the referral to eval and she spoke w her space control supervisor and they confirmed that they had rec the order and space control supervisor asked if there were other referrals to be seen and t/w stated that this pt was only one as of now (confirmed w pod) and thus they stated they will be sending out a clinician. T/w alerted Pod nurse of this as for timing or need of care team to assist.
[2020-07-03] MEDS: Loratadine 10 MG TABLET PO (09:26)
[2020-07-03] MEDS: DULoxetine HCl 60 MG CAPSULE.DR PO (09:26)
[2020-07-03] MEDS: Gabapentin 400 MG CAPSULE PO ×2 (09:26→12:50)
[2020-07-03 11:24] VITALS: BP 128/77; PULSE 74; TEMP 36.3; O2SAT 97
[2020-07-03] MEDS: Albuterol Sulfate 90 MCG 8 GM INHALER 2 PUFF INHALE ×2 (11:53→21:39)
[2020-07-03] MEDS: LORazepam 1 MG TABLET PO (12:09)
--- NOTE | 2020-07-03 16:23 | PC.NURSE ---
Pt asleep at current. No signs of distress. Respirations even, non-labored.
--- NOTE | 2020-07-03 18:06 | PC.NURSE ---
Pt asleep at current, no signs of distress, respirations even and non-labored
--- NOTE | 2020-07-03 19:12 | PC.NURSE ---
Report received. PT is resting in her room. Plan is to discharge tomorrow.
[2020-07-03 19:25] LABS: Glucose Urine UA NEG (NEG); Leukocyte Esterase Urine 1+ (NEG); Nitrite Urine NEG (NEG); PH 6.5 (5.0-8.0); Urine Blood 3+ (NEG); Urine Ketones NEG (NEG); Urine Protein 1+ MG/DL (NEG-TRACE)
[2020-07-03 19:26] LABS: Appearance Urine CLOUDY; Color Urine AMBER
[2020-07-03 19:31] LABS: Bacteria Urine 1+ /LPF; RBC Urine 30-49 /HPF (0); Squamous Epithelial Cell Urine 2+ /LPF
[2020-07-03 19:53] LABS: Amphetamine Screen Urine Not Detected (Not Detect); Barbiturates, Urine Not Detected (Not Detect); Benzodiazepines Screen Urine Not Detected (Not Detect); Cannabinoid Screen Urine POSITIVE (Not Detect); Cocaine Screen Urine Not Detected (Not Detect); Opiate Screen Urine Not Detected (Not Detect); Phencyclidine Screen Urine Not Detected (Not Detect)
[2020-07-03 20:08] LABS: COVID-19 Test Negative (Negative)
[2020-07-03 20:19] VITALS: BP 119/60; PULSE 82; RESP 20; TEMP 36.8; O2SAT 97
[2020-07-03] MEDS: Docusate Sodium 100 MG CAPSULE 200 MG PO (20:55)
[2020-07-03] MEDS: Gabapentin 600 MG TABLET PO (20:58)
[2020-07-03] MEDS: QUEtiapine Fumarate 400 MG TABLET PO (20:58)
[2020-07-03] MEDS: Lithium Carbonate ER 300 MG TABLET.ER 600 MG PO (20:59)
[2020-07-03] MEDS: OLANZapine 10 MG TABLET 20 MG PO (20:59)
[2020-07-03] MEDS: traZODone HCL 100 MG TABLET PO (21:00)
[2020-07-03 22:01] VITALS: BP 119/60; PULSE 82
[2020-07-03] MEDS: Prazosin HCL 5 MG CAPSULE PO (22:01)
[2020-07-03] MEDS: Zolpidem Tartrate 5 MG TABLET PO (22:01)
[2020-07-03] MEDS: chlorproMAZINE HCl 100 MG TABLET 150 MG PO (22:02)
[2020-07-03 23:41] VITALS: RESP 17
[2020-07-04] MEDS: Albuterol Sulfate 90 MCG 8 GM INHALER 2 PUFF INHALE ×2 (04:46→09:12)
[2020-07-04] MEDS: Ibuprofen 600 MG TABLET PO ×2 (04:56→17:20)
[2020-07-04 05:58] VITALS: BP 127/78; PULSE 89; RESP 17; TEMP 36.3; O2SAT 95
--- NOTE | 2020-07-04 07:02 | PC.NURSE ---
Report recieved. Pt currently sleeping, respirations even and unlabored, in no apparent distress. PT to be discharged to respite later today.
--- NOTE | 2020-07-04 08:13 | PC.NURSE ---
Per N, laviniazen estrada denied PT, pt to be re-evaluated today.
[2020-07-04] MEDS: Loratadine 10 MG TABLET PO (09:15)
[2020-07-04] MEDS: DULoxetine HCl 60 MG CAPSULE.DR PO (09:15)
[2020-07-04] MEDS: Docusate Sodium 100 MG CAPSULE 200 MG PO ×2 (09:16→21:05)
[2020-07-04] MEDS: Omeprazole 20 MG CAPSULE.DR PO (09:16)
[2020-07-04] MEDS: Gabapentin 400 MG CAPSULE PO ×2 (09:16→13:21)
[2020-07-04] MEDS: LORazepam 1 MG TABLET PO ×2 (09:33→15:43)
--- NOTE | 2020-07-04 09:45 | PC.NURSE ---
Pt reported that her heart hurts but that she thought it was just anxiety, vital signs assessed, pt medicated per emar.
[2020-07-04 09:46] VITALS: BP 124/70; PULSE 111; RESP 17; O2SAT 97
[2020-07-04] MEDS: chlorproMAZINE HCl 100 MG TABLET 150 MG PO ×2 (10:20→17:16)
[2020-07-04] MEDS: HaloperidoL 5 MG TABLET PO (13:24)
--- NOTE | 2020-07-04 13:25 | PC.NURSE ---
Pt states she is feeling like hurting herself, stating I just want to give myself a concussion enough to kill myself, or wrap this around my neck Pt stating that she is having a hard time keeping herself safe at this time. Pt requesting medication, medicated per emar. Pt remains on 1:1 for safety.
[2020-07-04 16:14] VITALS: BP 143/82; PULSE 72; RESP 19; TEMP 36.6; O2SAT 95
--- NOTE | 2020-07-04 19:09 | PC.NURSE ---
Report received. Pt resting in her room quietly. Calm and cooperative. PT complained of nausea when she sees food and chills at this time. Temperature was 98.3 degrees F. Inpatient bed search in progress.
[2020-07-04] MEDS: traZODone HCL 100 MG TABLET PO (20:59)
[2020-07-04] MEDS: OLANZapine 10 MG TABLET 20 MG PO (20:59)
[2020-07-04 21:00] VITALS: BP 119/69; PULSE 92
[2020-07-04] MEDS: Gabapentin 600 MG TABLET PO (21:00)
[2020-07-04] MEDS: Prazosin HCL 5 MG CAPSULE PO (21:00)
[2020-07-04] MEDS: Lithium Carbonate ER 300 MG TABLET.ER 600 MG PO (21:04)
[2020-07-04] MEDS: QUEtiapine Fumarate 400 MG TABLET PO (21:06)
[2020-07-04] MEDS: Zolpidem Tartrate 5 MG TABLET PO (21:06)
[2020-07-04 21:23] VITALS: BP 119/69; PULSE 92; RESP 18; TEMP 36.6; O2SAT 95
--- NOTE | 2020-07-05 00:07 | PC.NURSE ---
[facility] called and stated that patient has been accepted into an inpatient facility upon receipt of proof of negative COVID status. PT info and COVID test results were faxed over to N. Nurse called and confirmed that fax was received by N.
--- NOTE | 2020-07-05 01:39 | PC.NURSE ---
MARYLUN called to affirm that PT has been accepted at [facility]. Transport organized with ED legal administrative secretary. Section 12 for transport filled out and signed by provider. PT ETA is 1300 on 07/05/2020.
[2020-07-05 06:16] VITALS: BP 114/61; PULSE 94; RESP 16; TEMP 36.2; O2SAT 96
--- NOTE | 2020-07-05 06:56 | PC.NURSE ---
Report received. Pt currently resting, calm and cooperative. PT to be transferred to [facility] later today.
[2020-07-05] MEDS: Docusate Sodium 100 MG CAPSULE 200 MG PO (09:24)
[2020-07-05] MEDS: Loratadine 10 MG TABLET PO (09:24)
[2020-07-05] MEDS: Gabapentin 400 MG CAPSULE PO (09:24)
[2020-07-05] MEDS: Omeprazole 20 MG CAPSULE.DR PO (09:24)
[2020-07-05] MEDS: DULoxetine HCl 60 MG CAPSULE.DR PO (09:24)
[2020-07-05] MEDS: chlorproMAZINE HCl 100 MG TABLET 150 MG PO (10:51)
[2020-07-05] MEDS: Ibuprofen 600 MG TABLET PO (11:56)
== END 2020-07-05 12:12 ==
PROVIDERS: Nurse Practitioner Primary Care; Physician Assistant; Emergency Provider Emergency Medicine
DX: F33.1 Major depressive disorder, recurrent, moderate (principal); R45.851 Suicidal ideations; F17.200 Nicotine dependence, unspecified, uncomplicated; F12.90 Cannabis use, unspecified, uncomplicated; Z71.6 Tobacco abuse counseling; Z79.899 Other long term (current) drug therapy
CPT/HCPCS: 36415; 80053; 80307; 81001; 83690; 85025; 87086; 87635; 94640; 94664; 99285

== ENCOUNTER 2020-07-20 13:16 | Emergency (ER) | payer OTHER, SELFPAY ==
[2020-07-20 13:30] VITALS: BP 125/86; BP 134/65; PULSE 108; PULSE 115; RESP 18; TEMP 36.8; O2SAT 98; BMI 48.4
--- NOTE | 2020-07-20 13:30 | ED_ITS ---
HPI - Head Injury General Chief complaint: Head Injury Stated complaint: HEADACHE X'S 1 WEEK Time Seen by Provider: 07/20/20 13:23 Source: EMS Mode of arrival: EMS Limitations: no limitations History of Present Illness HPI Narrative: 35-year-old female well known to this department with a past medical history of mental illness here with headache. The patient tells me she was discharged from a psychiatric facility yesterday. During her stay there she had a head trauma which was self-inflicted. She was seen at an emergency department and had sutures placed. She tells me that she continue to Bang her head at the facility and reopened her sutures. She went to [facility] yesterday for an evaluation. She tells me that she continues to have headache, dizziness, and feels unwell. No vision changes, nausea or vomiting. She denies any CT scans of her head being done. Her tetanus is up-to-date. She denies SI, HI and feels well otherwise. Not on anticoagulation. Complaint: head injury and head pain Onset (ago): week(s) Mechanism of Injury: other (self inflicted injury) Place: other (psych facility ) Loss of Consciousness: no Location of injury: frontal Severity: mild Radiation: none Other Injuries: none Associated symptoms: denies other symptoms Related Data Home Medications Medication Instructions Recorded Confirmed albuterol sulfate 2 puff INHALATION Q4-6H PRN 05/15/20 07/02/20 cetirizine 10 mg PO DAILY 05/15/20 07/03/20 chlorpromazine 150 mg PO Q4H PRN 05/15/20 07/02/20 docusate sodium 200 mg PO BID 05/15/20 07/03/20 duloxetine 60 mg PO DAILY 05/15/20 07/03/20 gabapentin 600 mg PO BEDTIME 05/15/20 07/03/20 haloperidol decanoate 100 mg IM Q4W 05/15/20 07/03/20 hydroxyzine pamoate 50 mg PO TID PRN 05/15/20 07/03/20 lithium carbonate 600 mg PO BEDTIME 05/15/20 07/03/20 olanzapine 20 mg PO BEDTIME 05/15/20 07/03/20 omeprazole 20 mg PO DAILY@0630 05/15/20 07/03/20 prazosin 5 mg PO BEDTIME 05/15/20 07/03/20 acetaminophen 650 mg PO Q6H PRN 06/02/20 07/03/20 trazodone 100 mg PO BEDTIME 06/02/20 07/03/20 zolpidem 12.5 mg PO BEDTIME 06/02/20 07/03/20 haloperidol 1 tab PO BID PRN 06/24/20 07/03/20 ibuprofen 1 tab PO QID PRN 06/24/20 07/02/20 lorazepam 1 tab PO QID PRN 06/24/20 07/03/20 quetiapine 400 mg PO BEDTIME 06/24/20 07/03/20 gabapentin 400 mg PO QAM 07/03/20 07/03/20 gabapentin 400 mg PO QNOON 07/03/20 07/03/20 Allergies Allergy/AdvReac Type Severity Reaction Status Date / Time carbamazepine [From TEGRETOL] AdvReac Unknown NAUSEA & Verified 06/02/20 19:50 VOMITING topiramate [From TOPAMAX] AdvReac Unknown NAUSEA & Verified 06/02/20 19:50 VOMITING Review of Systems Review of Systems: Yes all other systems are reviewed and are negative Constitutional: Constitutional: Reports no additional constitutional complaints, Denies body ache(s), Denies chills, Denies fever(s), Reports headache(s) and Denies weakness Eyes: Eyes: Reports no additional eye complaints and Denies change in vision ENT: Reports system reviewed and no additional complaints, except as documented, Reports dizziness, Reports headache(s), Denies nasal congestion, Denies nasal discharge and Denies neck pain Cardiovascular: Cardiovascular: Reports no additional cardiovascular complaints, Denies chest pain, Denies leg edema and Denies dyspnea Respiratory: Respiratory: Reports no additional respiratory complaints, Denies cough and Denies dyspnea Gastrointestinal: Gastrointestinal: Reports no additional gastrointestinal complaints, Denies abdominal pain, Denies diarrhea, Denies nausea and Denies vomiting Genitourinary: Genitourinary: Reports no additional female genitourinary complaints and Denies urinary incontinence Musculoskeletal: Musculoskeletal: Reports no additional musculoskeletal complaints, Denies back pain, Denies arthralgias, Denies joint swelling, Denies neck pain, Denies numbness and Denies tingling Integumentary/Breasts: Skin/Breast: Reports system reviewed and no additional complaints, except as docu and Denies rash Neurologic: Reports system reviewed and no additional complaints, except as documented, Denies Abnormal speech present, Reports dizziness, Reports headache(s), Denies numbness, Denies tingling and Denies weakness PMFSH Past Medical History Attestation statement: The following information was validated with the patient. Source: old records reviewed and nursing notes reviewed Medical History Adjustment disorder Anxiety Asthma Borderline personality disorder Depression Intentional self-harm PTSD (post-traumatic stress disorder) Schizoaffective disorder Self-harming behavior Suicidal ideation Social History Social History Alcohol intake: never Smoking Status: Current every day smoker Use of substances other than those prescribed or required for medical reasons: No Substance Use Type: Marijuana Advance Directives: No Advance Directives Information Provided: No Physical Exam Vital Signs: Vital Signs: Last Vital Signs Temp 98.3 F 07/20/20 15:23 Pulse 95 07/20/20 15:23 Resp 16 07/20/20 15:23 BP 137/89 07/20/20 15:23 Pulse Ox 100 07/20/20 15:23 Body Mass Index 48.4 Const: General: cooperative, healthy appearing, comfortable and no acute distress Orientation/consciousness: patient oriented x3 Limitations: no limitations HENMT: Head: Yes normal to inspection Ears: hearing grossly normal bilaterally General nose exam: Normal external nose present Face and sin us: Yes normal facial exam Mouth: Normal oral and palatal mucosa present Throat: Yes posterior oropharynx normal Eyes: General: appearance normal, both eyes and all related structures Pupils: Equal, round and reactive pupils present Neck: Neck: Yes normal visual inspection Chest: Chest palpation & inspection: normal inspection of the chest Resp: Effort & Inspection: normal respiratory effort Auscultation: clear to auscultation bilaterally Cardio: Rate: regular rate Rhythm: regular rhythm Peripheral pulses: Peripheral pulses 2+ throughout GI: Inspection: Yes normal to inspection Palpation (GI): Soft to palpation and nontender Auscultation: normal bowel sounds Back/Spine/Pelvis: Thoracic/Lumbar Spine: thoracic and lumbar spine normal to inspection Skin: General skin exam: no rashes or lesions noted Neuro: General: patient oriented x3, no focal motor deficits and normal sensation to monofilament Cranial nerves: Yes CN's II-XII intact bilaterally, Yes Equal, round and reactive pupils present, Yes Bilaterally intact EOM present, Yes Nystagmus not present, Yes Normal facial strength present and Yes Midline tongue present Cognition (Neuro): normal cognition Speech: No Abnormal speech present Gait exam (Neuro): Normal gait present Motor exam (neuro): 5/5 motor strength present throughout Sensory Exam: Normal double simultaneous stimulation for sensation Deep tendon reflexes (DTR's): Right patellar reflex intensity grade: 2+ and Left patellar reflex intensity grade: 2+ Coordination: [id number] test normal, [id number] test normal and tandem gait normal Extrem: General: Yes normal to inspection Course Course Course Narrative: Patient here with headache, dizziness status post head injury. Neuro intact. Will check imaging. 155-CT head unremarkable. Patient was given wound care and Steri-Strips were applied. Symptoms are consistent with a mild concussion. Discussed this with the patient. We reviewed limiting screen time and close follow-up with her primary care doctor. Reviewed worrisome signs and symptoms and when to return to the emergency department. Comfortable with discharge home. [facility] - Head Injury Medical Records Attestation: I reviewed the patient's medical records. Lab Data Attestation: I reviewed the patient's lab results. Labs: Lab Results 07/20/20 Range/Units 14:19 Urine Test NEGATIVE (NEGATIVE) Imaging Data CT scan - head: Attestation: I personally reviewed and interpreted this imaging study as follows: Radiologist's impression: EXAMINATION: CT HEAD WITHOUT CONTRAST CLINICAL INFORMATION: Head injury. Rule out intracranial hemorrhage. COMPARISON: Head CT March 24, 2017. TECHNIQUE: Contiguous axial imaging was performed from the skull base to vertex without intravenous administration of contrast. This CT examination was performed using dose optimization techniques as appropriate, variously including the following: *Automated exposure control *Adjustment of mA and/or kV according to patient size (this includes techniques or standardized protocols for targeted exams where dose is matched to indication/reason for exam; i.e. extremities or head) *Use of iterative reconstruction technique FINDINGS: There is no intracranial hemorrhage, hydrocephalus, extra-axial surface collection, midline shift, or other herniation pattern. Diaz to white matter differentiation is diffusely maintained without evidence of an evolved acute territorial infarct. The basilar cisterns are preserved. Anterior frontal scalp swelling. No acute osseous abnormality. The paranasal sinuses and the mastoid air cells are well aerated. CT/CT head/brain wo con IMPRESSION: - No acute intracranial abnormality. - Anterior frontal scalp swelling. Discharge Plan Discharge Clinical Impression: Concussion without loss of consciousness Patient Disposition: Home, Self-Care Instructions: Concussion (ED) Additional Instructions: Limit screen time. No TV or phone Get plenty of rest Follow-up with your primary care doctor as some patients have symptoms of concussion which can last longer than self for weeks. Prescriptions: No Action cetirizine 10 mg Tablet 10 mg PO DAILY RF: 0 docusate sodium 100 mg Capsule 200 mg PO BID RF: 0 albuterol sulfate 90 mcg/actuation Hfa Aerosol Inhaler 2 puff INHALATION Q4-6H PRN (Reason: Wheezing) RF: 0 gabapentin 600 mg Tablet 600 mg PO BEDTIME RF: 0 haloperidol decanoate 100 mg/mL Solution 100 mg IM Q4W RF: 0 hydroxyzine pamoate 50 mg Capsule 50 mg PO TID PRN (Reason: Anxiety) RF: 0 lithium carbonate 300 mg Tablet Extended Release 600 mg PO BEDTIME RF: 0 prazosin 5 mg Capsule 5 mg PO BEDTIME RF: 0 omeprazole 20 mg Capsule,Delayed Release(Dr/Ec) 20 mg PO DAILY@0630 RF: 0 olanzapine 20 mg Tablet 20 mg PO BEDTIME RF: 0 duloxetine 60 mg Capsule,Delayed Release(Dr/Ec) 60 mg PO DAILY RF: 0 chlorpromazine 50 mg Tablet 150 mg PO Q4H PRN (Reason: Agitation) RF: 0 acetaminophen 500 mg tablet 650 mg PO Q6H PRN (Reason: pain) RF: 0 trazodone 100 mg tablet 100 mg PO BEDTIME RF: 0 zolpidem 12.5 mg tablet,ext release multiphase 12.5 mg PO BEDTIME RF: 0 gabapentin 400 mg capsule 400 mg PO QNOON RF: 0 gabapentin 400 mg Tablet 400 mg PO QAM RF: 0 haloperidol 5 mg tablet 1 tab PO BID PRN (Reason: psychosis) RF: 0 lorazepam 1 mg tablet 1 tab PO QID PRN (Reason: anxiety) RF: 0 ibuprofen 600 mg tablet 1 tab PO QID PRN (Reason: severe pain) RF: 0 quetiapine 400 mg tablet 400 mg PO BEDTIME RF: 0 Referrals: Physician,Unknown [Primary Care Provider] - 2 days Interventions: ED Discharge Assessment Last Done: 07/20/20 16:12 Discharge Date/Time: 07/20/20 16:13
[2020-07-20 14:00] VITALS: BP 125/86; PULSE 98; RESP 14; TEMP 36.6; O2SAT 100
[2020-07-20 14:29] LABS: UPreg QC Valid YES; Urine Pregnancy NEGATIVE (NEGATIVE)
--- NOTE | 2020-07-20 14:33 | CT_ITS ---
EXAMINATION: CT HEAD WITHOUT CONTRAST CLINICAL INFORMATION: Head injury. Rule out intracranial hemorrhage. COMPARISON: Head CT March 24, 2017. TECHNIQUE: Contiguous axial imaging was performed from the skull base to vertex without intravenous administration of contrast. This CT examination was performed using dose optimization techniques as appropriate, variously including the following: *Automated exposure control *Adjustment of mA and/or kV according to patient size (this includes techniques or standardized protocols for targeted exams where dose is matched to indication/reason for exam; i.e. extremities or head) *Use of iterative reconstruction technique FINDINGS: There is no intracranial hemorrhage, hydrocephalus, extra-axial surface collection, midline shift, or other herniation pattern. Diaz to white matter differentiation is diffusely maintained without evidence of an evolved acute territorial infarct. The basilar cisterns are preserved. Anterior frontal scalp swelling. No acute osseous abnormality. The paranasal sinuses and the mastoid air cells are well aerated. CT/CT head/brain wo con IMPRESSION: - No acute intracranial abnormality. - Anterior frontal scalp swelling.
[2020-07-20 15:23] VITALS: BP 137/89; PULSE 95; RESP 16; TEMP 36.8; O2SAT 100
== END 2020-07-20 16:13 | disposition home or self-care (01) ==
PROVIDERS: Nurse Practitioner Family; Emergency Provider Emergency Medicine Emergency Medical Services
DX: S06.0X0A Concussion without loss of consciousness, initial encounter (principal); W22.09XA Striking against other stationary object, initial encounter; F17.200 Nicotine dependence, unspecified, uncomplicated; Y93.89 Activity, other specified; Y92.9 Unspecified place or not applicable; Y99.9 Unspecified external cause status; F60.3 Borderline personality disorder; Z91.5 Personal history of self-harm; Z79.899 Other long term (current) drug therapy
CPT/HCPCS: 70450; 81025; 99284

== ENCOUNTER 2020-07-23 15:30 | Inpatient (IN) | payer OTHER, SELFPAY ==
[2020-07-23 15:50] VITALS: BP 150/96; PULSE 90; RESP 19; TEMP 37.2; O2SAT 100; BMI 54.8
[2020-07-23 15:53] VITALS: BP 150/96; PULSE 90; RESP 19; TEMP 37.2; O2SAT 100
--- NOTE | 2020-07-23 15:55 | PC.NURSE ---
PT states she has been banging her head a lot, has wound on her forehead, stated she had stitches and banged her head until they came out. PT states [facility] changed her medications but did not send medication list to her residential so she is still taking her old medications, states she is on 59 medications. PT states that she did not call EMS today, that her staff called and she did not want to come, PT states she is done fighting and just wants to kill herself.
--- NOTE | 2020-07-23 15:57 | ED.PSYCH ---
HPI - Psych General Chief Complaint: Psychiatric Symptoms Stated Complaint: crisis Time Seen by Provider: 07/23/20 15:57 History of Present Illness HPI Narrative: 35 y/o female with extensive psychiatric history including borderline personality disorder, PTSD, bipolar disorder, hallucinations who is well known to this facility comes from her program when staff called 911 due to concerns of self-harm. She was found banging her head against the wall over and over again. She was seen here last on 07/20 one day after she was discharged from [facility] for psychiatric care. She has had recurrent self-inflicted head trauma for >1 week. She had a normal CT head on 07/20. She had sutures placed to a self-inflicted forehead laceration a couple weeks ago she reports but banged her head so hard that they came out. Subsequently she had steri-strips placed here on 07/20. She reports she has also been taking excessive amounts of Tylenol in order to sleep and never wake up. She wants to of head trauma, tylenol overdose or from getting COVID-19. She reports compliance with her psychaitric medications. MD complaint: suicidal ideation and feels depressed Onset (ago): day(s) Duration: constant History of same: Yes Relieving factors: none Exacerbating factors: none Associated psychiatric symptoms: depression, suicidal ideation and racing thoughts Associated symptoms: headache and insomnia Treatments prior to arrival: none If self harm: admits thoughts of self harm, has plan, has acted on plan and self-inflicted trauma Related Data Home Medications Medication Instructions Recorded Confirmed albuterol sulfate 2 puff INHALATION Q4-6H PRN 05/15/20 07/02/20 cetirizine 10 mg PO DAILY 05/15/20 07/03/20 chlorpromazine 150 mg PO Q4H PRN 05/15/20 07/02/20 docusate sodium 200 mg PO BID 05/15/20 07/03/20 duloxetine 60 mg PO DAILY 05/15/20 07/03/20 gabapentin 600 mg PO BEDTIME 05/15/20 07/03/20 haloperidol decanoate 100 mg IM Q4W 05/15/20 07/03/20 hydroxyzine pamoate 50 mg PO TID PRN 05/15/20 07/03/20 lithium carbonate 600 mg PO BEDTIME 05/15/20 07/03/20 olanzapine 20 mg PO BEDTIME 05/15/20 07/03/20 omeprazole 20 mg PO DAILY@0630 05/15/20 07/03/20 prazosin 5 mg PO BEDTIME 05/15/20 07/03/20 acetaminophen 650 mg PO Q6H PRN 06/02/20 07/03/20 trazodone 100 mg PO BEDTIME 06/02/20 07/03/20 zolpidem 12.5 mg PO BEDTIME 06/02/20 07/03/20 haloperidol 1 tab PO BID PRN 06/24/20 07/03/20 ibuprofen 1 tab PO QID PRN 06/24/20 07/02/20 lorazepam 1 tab PO QID PRN 06/24/20 07/03/20 quetiapine 400 mg PO BEDTIME 06/24/20 07/03/20 gabapentin 400 mg PO QAM 07/03/20 07/03/20 gabapentin 400 mg PO QNOON 07/03/20 07/03/20 Allergies Allergy/AdvReac Type Severity Reaction Status Date / Time carbamazepine [From TEGRETOL] AdvReac Unknown NAUSEA & Verified 06/02/20 19:50 VOMITING topiramate [From TOPAMAX] AdvReac Unknown NAUSEA & Verified 06/02/20 19:50 VOMITING Review of Systems Review of Systems: Constitutional: No Fever, No Chills ENT/Mouth: No sore throat, No Rhinorrhea, No Swallowing Difficulty Eyes: No Eye Pain, No Swelling, No Redness Cardiovascular: No Chest Pain, No SOB Respiratory: No Cough, No Sputum, No Wheezing, No dyspnea Gastrointestinal: No Nausea, No Vomiting, No Diarrhea, No abdominal Pain, +constipation Genitourinary: No Dysuria, No Urinary Frequency, No Hematuria Musculoskeletal: No joint pain, No Myalgias Skin: + Skin Lesions, No rash Neuro: No Weakness, No Numbness, No Dizziness, + Headache Psych: + Anxiety/Panic, + Depression, +SI, no VH/AH Heme/Lymph: No Bruising PMFSH Past Medical History Medical History Adjustment disorder Anxiety Asthma Borderline personality disorder Depression Intentional self-harm PTSD (post-traumatic stress disorder) Schizoaffective disorder Self-harming behavior Suicidal ideation Social History Social History Alcohol intake: unknown Smoking Status: Current every day smoker Smoked in Last 30 Days: Yes Use of substances other than those prescribed or required for medical reasons: Yes Substance Use Type: Marijuana Substance Use Frequency: Daily Advance Directives: No Advance Directives Information Provided: Yes Physical Exam Vital Signs: Vital Signs: Last Vital Signs Temp 98.9 F 07/23/20 15:53 Pulse 90 07/23/20 15:53 Resp 19 07/23/20 15:53 BP 150/96 H 07/23/20 15:53 Pulse Ox 100 07/23/20 15:53 Body Mass Index 54.8 Appearance: Alert. Oriented X3. No acute distress. Bleeding laceration to forehead HEENT: 4cm linear superficial laceration to forehead with minor bleeding, mild swelling and ecchymosis around lac. Neck: Normal inspection. Neck supple. CVS: Normal heart rate and rhythm. Pulses normal. Respiratory: No respiratory distress. Breath sounds normal. Abdomen: Obese, Soft and nontender. +BS x4 Skin: Skin warm and dry. Normal skin color. Normal skin turgor. No rashes. Extremities: No lower extremity edema. Neuro/Psych: Oriented X 3. Tearful, admits to SI, poor insight, racing thoughts. Course Course Course Narrative: 35 y/o well known to this facility with extensive psych history presenting with self-inflicted head trauma and SI. No LOC. CT head on 07/20 showed no acute intracranial pathology. No indication to repeat at this time. Headache is very mild. Concern for escalating behavior and Tylenol overdose. Will check labs - she has been a tough stick, has a port that will likely need to be accessed. 1:1 safety monitoring given her history and high likelihood of self-inflicted injury. Anticipate inpatient placement. MDM - Psych Differential Diagnosis Differential diagnosis: Likely suicidal ideation, bipolar disorder, depression, drug-induced psychotic disorder and post-traumatic stress disorder Medical Records Attestation: I reviewed the patient's medical records. Critical Care Time Critical Care Time Critical Care Time: No Discharge Plan Discharge Clinical Impression: Suicidal ideation, Injury, self-inflicted Prescriptions: No Action cetirizine 10 mg Tablet 10 mg PO DAILY RF: 0 docusate sodium 100 mg Capsule 200 mg PO BID RF: 0 albuterol sulfate 90 mcg/actuation Hfa Aerosol Inhaler 2 puff INHALATION Q4-6H PRN (Reason: Wheezing) RF: 0 gabapentin 600 mg Tablet 600 mg PO BEDTIME RF: 0 haloperidol decanoate 100 mg/mL Solution 100 mg IM Q4W RF: 0 hydroxyzine pamoate 50 mg Capsule 50 mg PO TID PRN (Reason: Anxiety) RF: 0 lithium carbonate 300 mg Tablet Extended Release 600 mg PO BEDTIME RF: 0 prazosin 5 mg Capsule 5 mg PO BEDTIME RF: 0 omeprazole 20 mg Capsule,Delayed Release(Dr/Ec) 20 mg PO DAILY@0630 RF: 0 olanzapine 20 mg Tablet 20 mg PO BEDTIME RF: 0 duloxetine 60 mg Capsule,Delayed Release(Dr/Ec) 60 mg PO DAILY RF: 0 chlorpromazine 50 mg Tablet 150 mg PO Q4H PRN (Reason: Agitation) RF: 0 acetaminophen 500 mg tablet 650 mg PO Q6H PRN (Reason: pain) RF: 0 trazodone 100 mg tablet 100 mg PO BEDTIME RF: 0 zolpidem 12.5 mg tablet,ext release multiphase 12.5 mg PO BEDTIME RF: 0 gabapentin 400 mg capsule 400 mg PO QNOON RF: 0 gabapentin 400 mg Tablet 400 mg PO QAM RF: 0 haloperidol 5 mg tablet 1 tab PO BID PRN (Reason: psychosis) RF: 0 lorazepam 1 mg tablet 1 tab PO QID PRN (Reason: anxiety) RF: 0 ibuprofen 600 mg tablet 1 tab PO QID PRN (Reason: severe pain) RF: 0 quetiapine 400 mg tablet 400 mg PO BEDTIME RF: 0
[2020-07-23 17:24] LABS: Basophils Percent Auto 0.4 % (0-2); Eosinophils Percent Auto 0.1 % (0-4); Hematocrit 35.1 % (37-47); Hemoglobin 10.9 g/dl (12.0-16.0); Imm Gran Abs Auto 0.02 X10*3/uL (0.00-0.03); Imm Gran Pct Auto 0.3 % (0.0-0.4); Lymphocytes Absolute Auto 2.9 X10*3/uL (1.2-4.9); Lymphocytes Percent Auto 37.1 % (20-40); Mean Corpuscular HGB Conc 31.1 g/dl (31.0-35.0); Mean Corpuscular Hemoglobin 27.6 pg (27.0-33.0); Mean Corpuscular Volume 88.9 fL (80-98); Mean Platelet Volume 10.3 fL (9.4-12.3); Monocytes Absolute Auto 0.4 X10*3/uL (0.1-1.2); Monocytes Percent Auto 5.3 % (2-11); Neutrophils Absolute Auto 4.4 X10*3/uL (2.0-8.3); Neutrophils Percent Auto 56.8 % (45-73); Platelet Count 294 X10*3/uL (160-400); Red Blood Count 3.95 X10*6/uL (4.20-5.50); Red Cell Distribution Width 16.4 % (11.0-16.0); White Blood Count 7.7 X10*3/uL (4.8-10.8)
[2020-07-23 17:25] LABS: MANUAL DIFF FLAG NO
[2020-07-23 17:49] LABS: Amphetamine Screen Urine Not Detected (Not Detect); Barbiturates, Urine Not Detected (Not Detect); Benzodiazepines Screen Urine Not Detected (Not Detect); Cannabinoid Screen Urine POSITIVE (Not Detect); Cocaine Screen Urine Not Detected (Not Detect); Opiate Screen Urine Not Detected (Not Detect); Phencyclidine Screen Urine Not Detected (Not Detect)
[2020-07-23 17:59] LABS: Ethanol < 10 mg/dL
[2020-07-23 18:03] LABS: Acetaminophen LAB < 1 mcg/mL (<30); Alanine Aminotransferase 14 U/L (0-31); Albumin Level 4.3 g/dL (3.5-5.0); Alkaline Phosphatase 73 U/L (39-117); Anion Gap 12 (12-20); Aspartate Amino Transferase 12 U/L (5-31); Bilirubin Total 0.2 mg/dL (0.0-1.0); Blood Urea Nitrogen 7 mg/dL (9-16); Calcium 8.6 mg/dL (8.4-10.2); Carbon Dioxide 24 mmol/L (22-29); Chloride 107 mmol/L (96-108); Creatinine Clr Calc Pharmacy 133.8; Estimated Glomerular Filt Rate > 60; Glucose Random 84 mg/dL (60-115); Potassium 4.6 mmol/l (3.3-5.1); Salicylate < 5.0 mg/dL (15-30); Sodium 138 mmol/L (135-145); Total Protein 6.9 g/dL (6.5-8.0)
--- NOTE | 2020-07-23 18:15 | PC.NURSE ---
[facility] faxed and called.
[2020-07-23] MEDS: chlorproMAZINE HCl 25 MG TABLET 50 MG PO (18:34)
--- NOTE | 2020-07-23 19:25 | PC.NURSE ---
Report received. PT is sitting in her room watching TV. PT trying to inflict self harm by banging her head against the wall and picking at the scab on her forehead. 1:1 supervision for the PT. Verbal reassurance was given and PT started to calm down. PT waiting to be seen by B[facility].
[2020-07-23] MEDS: HaloperidoL 5 MG TABLET PO (19:40)
[2020-07-23] MEDS: LORazepam 1 MG TABLET PO (19:41)
[2020-07-24] VITALS (7 sets, daily range): BP systolic 115–143; BP diastolic 70–89; PULSE 87–109; RESP 15–18; TEMP 36.4–36.6; O2SAT 95–99
--- NOTE | 2020-07-24 00:10 | PC.NURSE ---
PT seen by N. Status is inpatient bed search.
[2020-07-24] MEDS: LORazepam 1 MG TABLET 2 MG PO (01:14)
[2020-07-24 07:13] LABS: UPreg QC Valid YES; Urine Pregnancy NEGATIVE (NEGATIVE)
--- NOTE | 2020-07-24 07:27 | PC.NURSE ---
Report taken from Jose Carlos Moyer RN. pt arrived via ambulance for SI complaints after banging head. Patient does have a moderate laceration on forehead that is approx 3 weeks old per patient. Pt is 1:1 due to previous attempts at [facility]. Pt sleeping at this time. Given ativan yesterday. [facility] aware of patient, inpatient bed search
--- NOTE | 2020-07-24 07:51 | PC.NURSE ---
pt ate 100% of breakfast.
--- NOTE | 2020-07-24 07:57 | PC.NURSE ---
covid swab sent, warm blankets given
[2020-07-24] MEDS: LORazepam 1 MG TABLET PO (08:02)
[2020-07-24] MEDS: Loratadine 10 MG TABLET PO (08:02)
[2020-07-24] MEDS: Gabapentin 400 MG CAPSULE PO ×2 (08:02→11:45)
[2020-07-24] MEDS: DULoxetine HCl 60 MG CAPSULE.DR PO (08:08)
[2020-07-24 08:14] LABS: IDNOW Serial# 9DD0AD1C
[2020-07-24 08:15] LABS: COVID-19 Test Negative (Negative)
--- NOTE | 2020-07-24 11:29 | PC.NURSE ---
Plan for patient to go to [facility]. pt remains sleeping, nad noted. 1:1 remains
--- NOTE | 2020-07-24 13:36 | PC.NURSE ---
pt did not want to wake for lunch, remains 1:1. food remains at bedside.
--- NOTE | 2020-07-24 15:57 | PC.NURSE ---
Patient calm, cooperative, and social with staff member. Little upset over her medication but was very happy to know she is going up to [facility] for further treatment. RN to RN report completed, VSS, no distress observed/reported, maintained on 1:1 safety check, will continue to monitor.
--- NOTE | 2020-07-24 19:32 | PC.ADMIT ---
pt. is a 35 year old Lebanese speaking single female who presents to m from the [facility] at approx. 1645 on a cv status. pt. is covid 19 negative, utox positive for cannabis, test neg. . pt. is well known known to [facility], her last admission was 05/05. upon admission pt. reported si, sh, ah, depression and high anxiety. prior to pt. was admitted to the [facility] pt. due to head banging. she stated hearing voices telling her to do so. pt. reported while at [facility] on 07/11/20 she banged her head to the point of needing stitches. pt. finds this time of the year difficult due to limited family and staff at the half-way not caring .. pt. felt suicidal with a plan to od. pt. lives in [facility], she has a longstanding admission hx for mental illness. pt. reported to feel hopeless and helpless, her insight and judgment are impaired. pt. is on a 1:1 safety protocol, her medication orders were received by shala lawson. pt. signed a hard copy of the safety tool, she reported she will seek staff if si or sh thoughts arise. pt. was cooperative during admission assessment, she already had a flu vaccine . pt. is a smoker, nicotine replacement order received. pt. knows the unit well, she did not need an orientation. she had dinner, tremors were noted, vs wnl. pt. reported to feel safe here .
[2020-07-24] MEDS: OLANZapine 10 MG TABLET 20 MG PO (20:46)
[2020-07-24] MEDS: Prazosin HCL 5 MG CAPSULE PO (20:46)
[2020-07-24] MEDS: traZODone HCL 100 MG TABLET PO (20:49)
[2020-07-24] MEDS: Gabapentin 600 MG TABLET PO (20:49)
[2020-07-24] MEDS: Zolpidem Tartrate 5 MG TABLET PO (20:49)
[2020-07-24] MEDS: Acetaminophen 325 MG TABLET 650 MG PO (20:49)
[2020-07-24] MEDS: Lithium Carbonate ER 300 MG TABLET.ER 600 MG PO (20:50)
[2020-07-24] MEDS: Docusate Sodium 100 MG CAPSULE 200 MG PO (20:50)
[2020-07-24] MEDS: QUEtiapine Fumarate 400 MG TABLET PO (20:50)
[2020-07-25 06:00] VITALS: BP 116/71; PULSE 94; TEMP 36.7
[2020-07-25] MEDS: Acetaminophen 325 MG TABLET 650 MG PO ×2 (06:37→21:30)
[2020-07-25] MEDS: Omeprazole 20 MG CAPSULE.DR PO (06:37)
[2020-07-25] MEDS: DULoxetine HCl 60 MG CAPSULE.DR PO (08:34)
[2020-07-25] MEDS: Gabapentin 400 MG CAPSULE PO ×2 (08:34→11:05)
[2020-07-25] MEDS: Loratadine 10 MG TABLET PO (08:35)
[2020-07-25] MEDS: Docusate Sodium 100 MG CAPSULE 200 MG PO ×2 (08:35→21:30)
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
[2020-07-25] MEDS: LORazepam 1 MG TABLET PO ×2 (18:11→21:31)
[2020-07-25] MEDS: chlorproMAZINE HCl 25 MG TABLET 150 MG PO (18:11)
[2020-07-25 21:14] VITALS: TEMP 36.7
[2020-07-25 21:29] VITALS: BP 142/72; PULSE 99
[2020-07-25] MEDS: Prazosin HCL 5 MG CAPSULE PO (21:29)
[2020-07-25] MEDS: HaloperidoL 5 MG TABLET PO (21:31)
[2020-07-25] MEDS: Lithium Carbonate ER 300 MG TABLET.ER 600 MG PO (21:31)
[2020-07-25] MEDS: OLANZapine 10 MG TABLET 20 MG PO (21:31)
[2020-07-25] MEDS: QUEtiapine Fumarate 400 MG TABLET PO (21:31)
[2020-07-25] MEDS: Zolpidem Tartrate 5 MG TABLET PO (21:31)
[2020-07-25] MEDS: Gabapentin 600 MG TABLET PO (21:31)
[2020-07-25] MEDS: traZODone HCL 100 MG TABLET PO (21:31)
[2020-07-26] MEDS: Gabapentin 400 MG CAPSULE PO ×2 (08:41→12:21)
[2020-07-26] MEDS: Docusate Sodium 100 MG CAPSULE 200 MG PO ×2 (08:42→20:17)
[2020-07-26] MEDS: Omeprazole 20 MG CAPSULE.DR PO (08:42)
[2020-07-26] MEDS: DULoxetine HCl 60 MG CAPSULE.DR PO (08:42)
[2020-07-26] MEDS: Acetaminophen 325 MG TABLET 650 MG PO ×2 (08:43→17:39)
[2020-07-26] MEDS: Loratadine 10 MG TABLET PO (10:46)
[2020-07-26] MEDS: Nicotine 21 MG PATCH.TD24 TRANSDERMA ×2 (10:47→10:50)
[2020-07-26] MEDS: chlorproMAZINE HCl 25 MG TABLET 150 MG PO (11:24)
[2020-07-26] MEDS: Milk of Magnesia 30 ML ORAL.SUSP PO (15:17)
[2020-07-26 18:00] VITALS: BP 116/68; PULSE 114; TEMP 36.4
[2020-07-26] MEDS: Gabapentin 600 MG TABLET PO (20:17)
[2020-07-26] MEDS: OLANZapine 10 MG TABLET 20 MG PO (20:17)
[2020-07-26] MEDS: QUEtiapine Fumarate 400 MG TABLET PO (20:18)
[2020-07-26] MEDS: Lithium Carbonate ER 300 MG TABLET.ER 600 MG PO (20:18)
[2020-07-26] MEDS: Zolpidem Tartrate 5 MG TABLET PO (20:18)
[2020-07-26] MEDS: traZODone HCL 100 MG TABLET PO (20:18)
[2020-07-26 20:19] VITALS: BP 116/68; PULSE 114
[2020-07-26] MEDS: Prazosin HCL 5 MG CAPSULE PO (20:19)
[2020-07-26] MEDS: chlorproMAZINE HCl 100 MG TABLET PO (20:31)
[2020-07-26] MEDS: chlorproMAZINE HCl 25 MG TABLET 50 MG PO (20:32)
--- NOTE | 2020-07-26 21:15 | HO.PSYCHPN ---
Subjective Subjective Date of Service: 07/26/20 Reason For Visit: Depression Subjective Notes: Conditional Voluntary Interim History: patient depressed flat overwhelm self-harming chronic auditory hallucinations do not appear to be psychotic hopeless helpless depressed [facility] not [facility] from there Medication Compliance: Yes Mental Status Exam Mental Status Exam Patient Orientation: Person, Place, Time and Situation Level of Consciousness: Awake and Lethargic Patient Behavior: Cooperative and Avoidant Mood Description: Apathetic, Constricted, Flat and Sad Affect Description: Withdrawn, Constricted, Depressed, Flat and Sad Depressive Symptoms: Increased Irritability, Hopelessness and Increased Fatigue Abnormal Motor Activity Signs and Symptoms: Psychomotor Retardation Diagnostics Vital Signs (24Hr): Vital Signs - 24 hr 07/25/20 21:29 07/26/20 20:19 Pulse Rate 99 114 H Blood Pressure 142/72 H 116/68 Body Mass Index 54.8 Labs Results: 07/23/20 17:09 07/23/20 17:09 Medications Medications Current Medications Generic Name Dose Route Start Last Admin Trade Name Freq PRN Reason Stop Dose Admin Acetaminophen 650 mg 07/24/20 01:00 07/26/20 17:39 Acetaminophen 325 Mg Tablet PO 650 mg Q6H PRN Administration pain Acetaminophen 650 mg 07/24/20 18:37 Acetaminophen 325 Mg Tablet PO Q6H PRN Headache/Pain Mild Scale (1-3) Al Hydroxide/Mg Hydroxide 30 ml 07/24/20 18:37 Magnesium Hydrox/Alum Hydrox 30 Ml Oral.Susp PO Q6H PRN Heartburn/Nausea Albuterol Sulfate 2 puff 07/24/20 00:20 Albuterol Sulfate 90 Mcg 8 Gm Inhaler INHALE Q4H PRN Wheezing Chlorpromazine HCl 50 mg 07/26/20 20:30 07/26/20 20:32 Chlorpromazine Hcl 25 Mg Tablet PO 25 mg Q4H PRN Administration Agitation Chlorpromazine HCl 100 mg 07/26/20 20:25 07/26/20 20:31 Chlorpromazine Hcl 100 Mg Tablet PO 100 mg Q4H PRN Administration Agitation Docusate Sodium 200 mg 07/24/20 09:00 07/26/20 20:17 Docusate Sodium 100 Mg Capsule PO 200 mg BID [facility] Administration Duloxetine HCl 60 mg 07/24/20 09:00 12/11/20 08:42 Duloxetine Hcl 60 Mg Capsule. PO 60 mg DAILY [facility] Administration Gabapentin 400 mg 07/24/20 01:03 07/26/20 08:41 Gabapentin 400 Mg Capsule PO 400 mg DAILY [facility] Administration Gabapentin 400 mg 07/24/20 12:00 07/26/20 12:21 Gabapentin 400 Mg Capsule PO 400 mg 1200 [facility] Administration Gabapentin 600 mg 07/24/20 21:00 07/26/20 20:17 Gabapentin 600 Mg Tablet PO 600 mg BEDTIME [facility] Administration Haloperidol 5 mg 07/24/20 00:20 07/25/20 21:31 Haloperidol 5 Mg Tablet PO 5 mg BID PRN Administration psychosis Hydroxyzine HCl 50 mg 07/24/20 01:06 Hydroxyzine Hcl 50 Mg Tablet PO TID PRN Anxiety Hydroxyzine HCl 25 mg 07/24/20 18:37 Hydroxyzine Hcl 25 Mg Tablet PO BEDTIME PRN Anxiety Ibuprofen 600 mg 07/24/20 00:20 Ibuprofen 600 Mg Tablet PO QID PRN severe pain [place] Carbonate 450 mg 07/27/20 09:00 [place] Carbonate Er 450 Mg Tablet.Er PO BID [facility] Loratadine 10 mg 07/24/20 09:00 07/26/20 10:46 Loratadine 10 Mg Tablet PO 10 mg DAILY [facility] Administration Lorazepam 1 mg 07/24/20 00:20 07/25/20 21:31 Lorazepam 1 Mg Tablet PO 1 mg QID PRN Administration anxiety Magnesium Hydroxide 30 ml 07/24/20 18:37 07/26/20 15:17 Milk Of Magnesia 30 Ml Oral.Susp PO 30 ml DAILY PRN Administration Constipation Nicotine 21 mg 07/26/20 10:35 07/26/20 10:50 Nicotine 21 Mg Patch.Td24 TRANSDERMA 21 mg DAILY [facility] Administration Olanzapine 20 mg 07/24/20 21:00 07/26/20 20:17 Olanzapine 10 Mg Tablet PO 20 mg BEDTIME [facility] Administration Omeprazole 20 mg 07/24/20 06:30 07/26/20 08:42 Omeprazole 20 Mg Capsule. PO 20 mg DAILY@0630 [facility] Administration Prazosin HCl 5 mg 07/24/20 21:00 07/26/20 20:19 Prazosin Hcl 5 Mg Capsule PO 5 mg BEDTIME [facility] Administration Protocol Quetiapine Fumarate 400 mg 07/24/20 21:00 07/26/20 20:18 Quetiapine Fumarate 400 Mg Tablet PO 400 mg BEDTIME [facility] Administration Trazodone HCl 100 mg 07/24/20 21:00 07/26/20 20:18 Trazodone Hcl 100 Mg Tablet PO 100 mg BEDTIME [facility] Administration Trazodone HCl 50 mg 07/24/20 18:37 Trazodone Hcl 50 Mg Tablet PO BEDTIME PRN Insomnia Zolpidem Tartrate 5 mg 07/24/20 21:00 07/26/20 20:18 Zolpidem Tartrate 5 Mg Tablet PO 5 mg BEDTIME [facility] Administration Allergies Allergies Allergy/AdvReac Type Severity Reaction Status Date / Time carbamazepine [From TEGRETOL] AdvReac Unknown NAUSEA & Verified 06/02/20 19:50 VOMITING topiramate [From TOPAMAX] AdvReac Unknown NAUSEA & Verified 06/02/20 19:50 VOMITING Assessment & Plan Assessment & Plan (1) Suicidal ideation: Status: Acute Code(s): R45.851 - Suicidal ideations (2) Injury, self-inflicted: Status: Acute Code(s): Z72.89 - Other problems related to lifestyle (3) Acute post-traumatic stress disorder: Status: Acute Code(s): F43.11 - Post-traumatic stress disorder, acute (4) Borderline personality disorder: Status: Acute Code(s): F60.3 - Borderline personality disorder (5) Recurrent major depression-severe: Status: Acute Code(s): F33.2 - Major depressive disorder, recurrent severe without psychotic features Assessment and Plan: inc lithium considerECT? referral to [facility] ? cont 1.1 Greater than 50% of the session was spent on counseling and/or coordination of care
--- NOTE | 2020-07-27 | CT_ITS ---
EXAMINATION: CT HEAD WITHOUT CONTRAST CLINICAL INFORMATION: Trauma. Evaluate for intracranial hemorrhage. COMPARISON: Multiple priors, most recent CT head dated 07/20/2020. TECHNIQUE: Contiguous axial imaging was performed from the skull base to vertex without intravenous administration of contrast. This CT examination was performed using dose optimization techniques as appropriate, variously including the following: *Automated exposure control. *Adjustment of mA and/or kV according to patient size (this includes techniques or standardized protocols for targeted exams where dose is matched to indication/reason for exam; i.e. extremities or head). *Use of iterative reconstruction technique. DLP: 702 mGy-cm FINDINGS: There is no evidence of acute intracranial hemorrhage or territorial infarction. No abnormal mass effect or midline shift is seen. Vexs-es-eqhil matter differentiation is well preserved. No extra-axial fluid collections are identified. The ventricles are normal in size. There is no abnormal attenuation within the brain parenchyma. Soft tissue stranding and possible defect overlying the frontal calvarium, which could indicate a soft tissue wound. Findings appear slightly more prominent when compared to the prior examination. No acute osseous abnormality. The mastoid air cells and visualized portions of the paranasal sinuses are well aerated. CT/CT head/brain wo con IMPRESSION: 1. No acute intracranial hemorrhage or mass effect. 2. Soft tissue injury and swelling along the anterior calvarium.
[2020-07-27] MEDS: chlorproMAZINE HCl 100 MG TABLET PO (07:15)
[2020-07-27] MEDS: chlorproMAZINE HCl 25 MG TABLET 50 MG PO (07:15)
[2020-07-27] MEDS: LORazepam 1 MG TABLET PO (07:15)
[2020-07-27] MEDS: Omeprazole 20 MG CAPSULE.DR PO (07:15)
--- NOTE | 2020-07-27 07:27 | HO.PSYCHPN ---
Subjective Subjective Date of Service: 07/27/20 Reason For Visit: Depression Interim History: Remains on 1:1. Dysphoric, intrusive flashbacks. Polypharmacy noted. Increase Prazosin t thinks [facility] will be good option bc Im in and out of places all the time . Review of Systems Review of Systems Constitutional: No Fever, No Chills ENT/Mouth: No sore throat, No Rhinorrhea, No Swallowing Difficulty Eyes: No Eye Pain, No Swelling, No Redness Cardiovascular: No Chest Pain, No SOB Respiratory: No Cough, No Sputum, No Wheezing, No dyspnea Gastrointestinal: No Nausea, No Vomiting, No Diarrhea, No abdominal Pain, +constipation Genitourinary: No Dysuria, No Urinary Frequency, No Hematuria Musculoskeletal: No joint pain, No Myalgias Skin: + Skin Lesions, No rash Neuro: No Weakness, No Numbness, No Dizziness, + Headache Psych: + Anxiety/Panic, + Depression, +SI, no VH/AH Heme/Lymph: No Bruising Mental Status Exam Mental Status Exam Patient Orientation: Person, Place, Time and Situation Level of Consciousness: Awake and Lethargic Patient Behavior: Cooperative and Avoidant Mood Description: Apathetic, Constricted, Flat and Sad Affect Description: Withdrawn, Constricted, Depressed, Flat and Sad Diagnostics Vital Signs (24Hr): Vital Signs - 24 hr 07/26/20 18:00 07/26/20 20:19 Temperature 97.6 F Pulse Rate 114 H 114 H Blood Pressure 116/68 116/68 Body Mass Index 54.8 Labs Results: 07/23/20 17:09 07/23/20 17:09 Medications Medications Current Medications Generic Name Dose Route Start Last Admin Trade Name Freq PRN Reason Stop Dose Admin Acetaminophen 650 mg 07/24/20 01:00 07/26/20 17:39 Acetaminophen 325 Mg Tablet PO 650 mg Q6H PRN Administration pain Acetaminophen 650 mg 07/24/20 18:37 Acetaminophen 325 Mg Tablet PO Q6H PRN Headache/Pain Mild Scale (1-3) Al Hydroxide/Mg Hydroxide 30 ml 07/24/20 18:37 Magnesium Hydrox/Alum Hydrox 30 Ml Oral.Susp PO Q6H PRN Heartburn/Nausea Albuterol Sulfate 2 puff 07/24/20 00:20 Albuterol Sulfate 90 Mcg 8 Gm Inhaler INHALE Q4H PRN Wheezing Chlorpromazine HCl 50 mg 07/26/20 20:30 07/27/20 07:15 Chlorpromazine Hcl 25 Mg Tablet PO 50 mg Q4H PRN Administration Agitation Chlorpromazine HCl 100 mg 07/26/20 20:25 07/27/20 07:15 Chlorpromazine Hcl 100 Mg Tablet PO 100 mg Q4H PRN Administration Agitation Docusate Sodium 200 mg 07/24/20 09:00 07/26/20 20:17 Docusate Sodium 100 Mg Capsule PO 200 mg BID [facility] Administration Duloxetine HCl 60 mg 07/24/20 09:00 07/26/20 08:42 Duloxetine Hcl 60 Mg Capsule.Dr PO 60 mg DAILY [facility] Administration Gabapentin 400 mg 07/24/20 01:03 07/26/20 08:41 Gabapentin 400 Mg Capsule PO 400 mg DAILY [facility] Administration Gabapentin 400 mg 07/24/20 12:00 07/26/20 12:21 Gabapentin 400 Mg Capsule PO 400 mg 1200 [facility] Administration Gabapentin 600 mg 07/24/20 21:00 07/26/20 20:17 Gabapentin 600 Mg Tablet PO 600 mg BEDTIME [facility] Administration Haloperidol 5 mg 07/24/20 00:20 07/25/20 21:31 Haloperidol 5 Mg Tablet PO 5 mg BID PRN Administration psychosis Hydroxyzine HCl 50 mg 07/24/20 01:06 Hydroxyzine Hcl 50 Mg Tablet PO TID PRN Anxiety Hydroxyzine HCl 25 mg 07/24/20 18:37 Hydroxyzine Hcl 25 Mg Tablet PO BEDTIME PRN Anxiety Ibuprofen 600 mg 07/24/20 00:20 Ibuprofen 600 Mg Tablet PO QID PRN severe pain [place] Carbonate 450 mg 07/27/20 09:00 [place] Carbonate Er 450 Mg Tablet.Er PO BID [facility] Loratadine 10 mg 07/24/20 09:00 07/26/20 10:46 Loratadine 10 Mg Tablet PO 10 mg DAILY [facility] Administration Lorazepam 1 mg 07/24/20 00:20 07/27/20 07:15 Lorazepam 1 Mg Tablet PO 1 mg QID PRN Administration anxiety Magnesium Hydroxide 30 ml 07/24/20 18:37 07/26/20 15:17 Milk Of Magnesia 30 Ml Oral.Susp PO 30 ml DAILY PRN Administration Constipation Nicotine 21 mg 07/26/20 10:35 07/26/20 10:50 Nicotine 21 Mg Patch.Td24 TRANSDERMA 21 mg DAILY [facility] Administration Olanzapine 20 mg 07/24/20 21:00 07/26/20 20:17 Olanzapine 10 Mg Tablet PO 20 mg BEDTIME [facility] Administration Omeprazole 20 mg 07/24/20 06:30 07/27/20 07:15 Omeprazole 20 Mg Capsule.Dr PO 20 mg DAILY@0630 [facility] Administration Prazosin HCl 5 mg 07/24/20 21:00 07/26/20 20:19 Prazosin Hcl 5 Mg Capsule PO 5 mg BEDTIME [facility] Administration Protocol Quetiapine Fumarate 400 mg 07/24/20 21:00 07/26/20 20:18 Quetiapine Fumarate 400 Mg Tablet PO 400 mg BEDTIME [facility] Administration Trazodone HCl 100 mg 07/24/20 21:00 07/26/20 20:18 Trazodone Hcl 100 Mg Tablet PO 100 mg BEDTIME [facility] Administration Trazodone HCl 50 mg 07/24/20 18:37 Trazodone Hcl 50 Mg Tablet PO BEDTIME PRN Insomnia Zolpidem Tartrate 5 mg 07/24/20 21:00 07/26/20 20:18 Zolpidem Tartrate 5 Mg Tablet PO 5 mg BEDTIME [facility] Administration Allergies Allergies Allergy/AdvReac Type Severity Reaction Status Date / Time carbamazepine [From TEGRETOL] AdvReac Unknown NAUSEA & Verified 06/02/20 19:50 VOMITING topiramate [From TOPAMAX] AdvReac Unknown NAUSEA & Verified 06/02/20 19:50 VOMITING Assessment & Plan Assessment & Plan (1) Suicidal ideation: Status: Acute Code(s): R45.851 - Suicidal ideations (2) Injury, self-inflicted: Status: Acute Code(s): Z72.89 - Other problems related to lifestyle (3) Acute post-traumatic stress disorder: Status: Acute Code(s): F43.11 - Post-traumatic stress disorder, acute (4) Borderline personality disorder: Status: Acute Code(s): F60.3 - Borderline personality disorder (5) Recurrent major depression-severe: Status: Acute Code(s): F33.2 - Major depressive disorder, recurrent severe without psychotic features Assessment and Plan: [facility] ? cont 1.1 Greater than 50% of the session was spent on counseling and/or coordination of care
[2020-07-27 07:35] VITALS: BP 130/85; PULSE 116; RESP 16; TEMP 36.6; O2SAT 98
[2020-07-27 08:35] LABS: Lithium 0.54 mmol/L (0.60-1.20)
[2020-07-27] MEDS: Nicotine 21 MG PATCH.TD24 TRANSDERMA (09:03)
[2020-07-27] MEDS: Lithium Carbonate ER 450 MG TABLET.ER PO ×2 (09:04→21:49)
[2020-07-27] MEDS: Docusate Sodium 100 MG CAPSULE 200 MG PO ×2 (09:04→21:51)
[2020-07-27] MEDS: Loratadine 10 MG TABLET PO (09:05)
[2020-07-27] MEDS: DULoxetine HCl 60 MG CAPSULE.DR PO (09:05)
[2020-07-27] MEDS: Gabapentin 400 MG CAPSULE PO ×2 (09:05→13:14)
[2020-07-27] MEDS: Acetaminophen 325 MG TABLET 650 MG PO ×2 (09:06→18:05)
[2020-07-27] MEDS: Haloperidol Lactate 5 MG/ML VIAL IM (19:38)
[2020-07-27] MEDS: LORazepam 2 MG/ML VIAL IM (19:40)
[2020-07-27] MEDS: Benztropine Mesylate 2 MG/2 ML VIAL 1 MG IM (19:40)
[2020-07-27 19:45] VITALS: BP 137/98; PULSE 94; TEMP 35.9
[2020-07-27] MEDS: OLANZapine 10 MG TABLET 20 MG PO (21:48)
[2020-07-27] MEDS: traZODone HCL 100 MG TABLET PO (21:48)
[2020-07-27] MEDS: Zolpidem Tartrate 5 MG TABLET PO (21:49)
[2020-07-27 21:50] VITALS: BP 137/98; PULSE 94
[2020-07-27] MEDS: Prazosin HCL 1 MG CAPSULE 3 MG PO (21:50)
[2020-07-27 21:51] VITALS: BP 137/98; PULSE 94
[2020-07-27] MEDS: Prazosin HCL 5 MG CAPSULE PO (21:51)
[2020-07-27] MEDS: QUEtiapine Fumarate 400 MG TABLET PO (21:51)
[2020-07-27] MEDS: Gabapentin 600 MG TABLET PO (21:52)
[2020-07-27] MEDS: Ibuprofen 600 MG TABLET PO (23:19)
[2020-07-28] VITALS (7 sets, daily range): BP systolic 115–134; BP diastolic 71–91; PULSE 99–109; RESP 16–18; TEMP 36.6–37.2; O2SAT 99
[2020-07-28] MEDS: Omeprazole 20 MG CAPSULE.DR PO (08:34)
[2020-07-28] MEDS: Docusate Sodium 100 MG CAPSULE 200 MG PO ×2 (08:34→20:24)
[2020-07-28] MEDS: Lithium Carbonate ER 450 MG TABLET.ER PO ×2 (08:35→20:24)
[2020-07-28] MEDS: DULoxetine HCl 60 MG CAPSULE.DR PO (08:35)
[2020-07-28] MEDS: Loratadine 10 MG TABLET PO (08:36)
[2020-07-28] MEDS: Nicotine 21 MG PATCH.TD24 TRANSDERMA (08:37)
--- NOTE | 2020-07-28 08:51 | P.PNPSI_ITS ---
Subjective Subjective Date of Service: 07/28/20 Reason For Visit: Depression Interim History: Remains on 1:1. Dysphoric, intrusive flashbacks. Polypharmacy noted. Pt needed med restraint yesterday due to persistent head banging. CT neg but soft tissue injury noted. Discussed healthy coping/distraction. Pt reports anger and flashbacks Review of Systems Review of Systems Constitutional: No Fever, No Chills ENT/Mouth: No sore throat, No Rhinorrhea, No Swallowing Difficulty Eyes: No Eye Pain, No Swelling, No Redness Cardiovascular: No Chest Pain, No SOB Respiratory: No Cough, No Sputum, No Wheezing, No dyspnea Gastrointestinal: No Nausea, No Vomiting, No Diarrhea, No abdominal Pain, +constipation Genitourinary: No Dysuria, No Urinary Frequency, No Hematuria Musculoskeletal: No joint pain, No Myalgias Skin: + Skin Lesions, No rash Neuro: No Weakness, No Numbness, No Dizziness, + Headache Psych: + Anxiety/Panic, + Depression, +SI, no VH/AH Heme/Lymph: No Bruising Mental Status Exam Mental Status Exam Patient Orientation: Person, Place, Time and Situation Level of Consciousness: Awake and Lethargic Patient Behavior: Cooperative and Avoidant Mood Description: Apathetic, Constricted, Flat and Sad Affect Description: Withdrawn, Constricted, Depressed, Flat and Sad Diagnostics Vital Signs (24Hr): Vital Signs - 24 hr 07/27/20 19:45 07/27/20 21:50 07/27/20 21:51 Temperature 96.6 F L Pulse Rate 94 94 94 Blood Pressure 137/98 H 137/98 H 137/98 H Body Mass Index 54.8 Labs Results: 07/23/20 17:09 07/23/20 17:09 Labs: Laboratory Results - last 48 hr 07/27/20 08:03 [facility] 0.54 L Imaging Radiology Impressions: ITS Impressions Head CT 07/27/20 00:00 IMPRESSION: 1. No acute intracranial hemorrhage or mass effect. 2. Soft tissue injury and swelling along the anterior calvarium. Medications Medications Current Medications Generic Name Dose Route Start Last Admin Trade Name Freq PRN Reason Stop Dose Admin Acetaminophen 650 mg 07/24/20 01:00 07/27/20 18:05 Acetaminophen 325 Mg Tablet PO 650 mg Q6H PRN Administration pain Al Hydroxide/Mg Hydroxide 30 ml 12/09/20 18:37 Magnesium Hydrox/Alum Hydrox 30 Ml Oral.Susp PO Q6H PRN Heartburn/Nausea Albuterol Sulfate 2 puff 07/24/20 00:20 Albuterol Sulfate 90 Mcg 8 Gm Inhaler INHALE Q4H PRN Wheezing Chlorpromazine HCl 100 mg 07/26/20 20:25 07/27/20 07:15 Chlorpromazine Hcl 100 Mg Tablet PO 100 mg Q4H PRN Administration Agitation Docusate Sodium 200 mg 07/24/20 09:00 07/28/20 08:34 Docusate Sodium 100 Mg Capsule PO 200 mg BID SULEIMAN Administration Duloxetine HCl 60 mg 07/24/20 09:00 07/28/20 08:35 Duloxetine Hcl 60 Mg Capsule.Dr PO 60 mg DAILY SULEIMAN Administration Gabapentin 400 mg 07/24/20 01:03 07/27/20 09:05 Gabapentin 400 Mg Capsule PO 400 mg DAILY SULEIMAN Administration Gabapentin 400 mg 07/24/20 12:00 07/27/20 13:14 Gabapentin 400 Mg Capsule PO 400 mg 1200 SULEIMAN Administration Gabapentin 600 mg 07/24/20 21:00 07/27/20 21:52 Gabapentin 600 Mg Tablet PO 600 mg BEDTIME SULEIMAN Administration Haloperidol 5 mg 07/24/20 00:20 07/25/20 21:31 Haloperidol 5 Mg Tablet PO 5 mg BID PRN Administration psychosis Hydroxyzine HCl 50 mg 07/24/20 01:06 Hydroxyzine Hcl 50 Mg Tablet PO TID PRN Anxiety Ibuprofen 600 mg 07/24/20 00:20 07/27/20 23:19 Ibuprofen 600 Mg Tablet PO 600 mg QID PRN Administration severe pain [facility] Carbonate 450 mg 07/27/20 09:00 07/28/20 08:35 [facility] Carbonate Er 450 Mg Tablet.Er PO 450 mg BID SULEIMAN Administration Loratadine 10 mg 07/24/20 09:00 07/28/20 08:36 Loratadine 10 Mg Tablet PO 10 mg DAILY SULEIMAN Administration Lorazepam 1 mg 07/24/20 00:20 07/27/20 07:15 Lorazepam 1 Mg Tablet PO 1 mg QID PRN Administration anxiety Magnesium Hydroxide 30 ml 07/24/20 18:37 07/26/20 15:17 Milk Of Magnesia 30 Ml Oral.Susp PO 30 ml DAILY PRN Administration Constipation Nicotine 21 mg 07/26/20 10:35 07/28/20 08:37 Nicotine 21 Mg Patch.Td24 TRANSDERMA 21 mg DAILY SULEIMAN Administration Olanzapine 20 mg 07/24/20 21:00 07/27/20 21:48 Olanzapine 10 Mg Tablet PO 20 mg BEDTIME SULEIMAN Administration Omeprazole 20 mg 07/24/20 06:30 07/28/20 08:34 Omeprazole 20 Mg Capsule.Dr PO 20 mg DAILY@0630 SULEIMAN Administration Prazosin HCl 3 mg 07/27/20 21:00 07/27/20 21:50 Prazosin Hcl 1 Mg Capsule PO 3 mg BEDTIME SULEIMAN Administration Protocol Prazosin HCl 5 mg 07/27/20 21:30 07/27/20 21:51 Prazosin Hcl 5 Mg Capsule PO 5 mg BEDTIME SULEIMAN Administration Protocol Quetiapine Fumarate 400 mg 07/24/20 21:00 07/27/20 21:51 Quetiapine Fumarate 400 Mg Tablet PO 400 mg BEDTIME SULEIMAN Administration Trazodone HCl 100 mg 07/24/20 21:00 07/27/20 21:48 Trazodone Hcl 100 Mg Tablet PO 100 mg BEDTIME SULEIMAN Administration Trazodone HCl 50 mg 07/24/20 18:37 Trazodone Hcl 50 Mg Tablet PO BEDTIME PRN Insomnia Zolpidem Tartrate 5 mg 07/24/20 21:00 07/27/20 21:49 Zolpidem Tartrate 5 Mg Tablet PO 5 mg BEDTIME SULEIMAN Administration Allergies Allergies Allergy/AdvReac Type Severity Reaction Status Date / Time carbamazepine [From TEGRETOL] AdvReac Unknown NAUSEA & Verified 06/02/20 19:50 VOMITING topiramate [From TOPAMAX] AdvReac Unknown NAUSEA & Verified 06/02/20 19:50 VOMITING Assessment & Plan Assessment & Plan (1) Suicidal ideation: Status: Acute Code(s): R45.851 - Suicidal ideations (2) Injury, self-inflicted: Status: Acute Code(s): Z72.89 - Other problems related to lifestyle (3) Acute post-traumatic stress disorder: Status: Acute Code(s): F43.11 - Post-traumatic stress disorder, acute (4) Borderline personality disorder: Status: Acute Code(s): F60.3 - Borderline personality disorder (5) Recurrent major depression-severe: Status: Acute Code(s): F33.2 - Major depressive disorder, recurrent severe without psychotic features Assessment and Plan: Ct lithium Increased Prazosin referral to [facility] ? cont 1.1 Greater than 50% of the session was spent on counseling and/or coordination of care
[2020-07-28] MEDS: Acetaminophen 325 MG TABLET 650 MG PO (08:56)
[2020-07-28] MEDS: Gabapentin 400 MG CAPSULE PO ×2 (08:59→12:40)
[2020-07-28] MEDS: chlorproMAZINE HCl 100 MG TABLET PO (12:39)
[2020-07-28] MEDS: LORazepam 1 MG TABLET PO ×2 (12:39→20:00)
[2020-07-28] MEDS: chlorproMAZINE HCl 25 MG TABLET 50 MG PO (14:39)
[2020-07-28] MEDS: Haloperidol Lactate 5 MG/ML VIAL IM (17:15)
[2020-07-28] MEDS: LORazepam 2 MG/ML VIAL IM (17:18)
[2020-07-28] MEDS: Benztropine Mesylate 2 MG/2 ML VIAL 1 MG IM (17:18)
--- NOTE | 2020-07-28 18:01 | PM.EVENT ---
Event Note Date of Service: 07/28/20 Event Note: called to see paitent after chemical restraint. patient clfearly in no acute disterss, alert, oriented, vss.
[2020-07-28] MEDS: chlorproMAZINE HCl 25 MG TABLET 150 MG PO (20:00)
[2020-07-28] MEDS: hydrOXYzine HCL 50 MG TABLET PO (20:00)
[2020-07-28] MEDS: HaloperidoL 5 MG TABLET PO (20:00)
[2020-07-28] MEDS: Prazosin HCL 1 MG CAPSULE 3 MG PO (20:22)
[2020-07-28] MEDS: Prazosin HCL 5 MG CAPSULE PO (20:23)
[2020-07-28] MEDS: QUEtiapine Fumarate 400 MG TABLET PO (20:24)
[2020-07-28] MEDS: OLANZapine 10 MG TABLET 20 MG PO (20:24)
[2020-07-28] MEDS: Zolpidem Tartrate 5 MG TABLET PO (20:24)
[2020-07-28] MEDS: traZODone HCL 100 MG TABLET PO (20:24)
[2020-07-28] MEDS: Gabapentin 600 MG TABLET PO (20:24)
--- NOTE | 2020-07-28 23:05 | PC.NURSE ---
This nurse's note refers to events occurring 07/27/20. Pt was with her 1:1 staff at 1910 in her room, 509-1, when staff triggered the alarm for help. Several staff came to the room and found pt attempting to bang her head with significant force against the wall. Pt's 1:1 was staff trying to prevent pt from harming herself by taking hold of her arms to get her away from the wall. Pt was offered PO PRN medications as staff tried to maintain pt's physical safety. Pt was adamant that she would not take PO medications and continued to struggle to bang her head against the wall. Dr. Conley was contacted and orders were obtained for Haldol 5mg IM, Ativan 2mg IM, and Cogentin 1mg IM to be given as a medication restraint. Haldol 5mg IM was given in right deltoid at 1937. Ativan 2mg IM and Cogentin 1mg IM were given in left gluteus latricia at 1939 with good effect. Pt had significant bleeding from reopened wound in forehead caused by prior headbanging incidents. Dr Louie, hospitalist extrusion process operator was notified via [employer] of pt's injury to forehead and of the medication restraint at 1948. Dr. Louie was again contacted via [employer] at 2049 because of concerns about head injury requesting a CT scan of head. CT was ordered; pt Dr Louie did not see pt. CT scan was negative for fracture or serous injury. Family was not notified. Pt continues to be on 1:1 safety checks at this time. Pt later expressed to this food writer that she had been experiencing auditory hallucinations of male and female voices that were unfamiliar and that were telling pt that she will be raped and assaulted again as well as commanding self harming behaviors.
--- NOTE | 2020-07-29 02:15 | PC.NURSE ---
This Nurse's note refers to events that occurred on 07/28/20. Pt began banging head while in her bedroom with her 1:1 staff at 1617.The 1:1 staff person hit misti unger to obtain assistance from more staff. This speech writer entered pt's bedroom and found pt between her bed and the wall trying to bang her head on the wall with her staff trying to place a pillow between pt's head and the wall. Staff were able to get pt away from the wall and sat on bed with her controlling her arms as pt continued to struggle to hurt herself. Pt was offered PO PRN medications as well as encouraging her to use coping skills. Pt stated she would not take any medications, stating also that she wanted to and join her sister. Pt stated that she wanted to bang her head until she didn't wake up. Dr. Conley was informed at 1635 and orders were obtained for Haldol 5mg IM, Ativan 2mg IM, and Cogentin 1mg IM; all of which to be given as a medication restraint because of the pt's unsafe behaviors. Haldol 5mg IM STAT was given in left deltoid at 1715; Ativan 2mg IM STAT and Cogentin 1mg IM STAT were given in left gluteus latricia at 1718. The Hospitalist on-call, Dr. Louie was notified and pt was seen at 1755. Pt's vital signs were slightly elevated. Pt re-opened existing injury on forehead. Pt initially had compression bandage that became saturated and was replaced with steri-strips that helped reduce bleeding. Pt needed prompting to not touch area through rest of shift. No staff were injured in the incident. No family was notified of restraint. Pt remains on 1:1 safety checks at this time and is resting in bedroom at this time.
--- NOTE | 2020-07-29 09:00 | ECG_ITS ---
Test Reason : QTC CHECK Blood Pressure : / mmHG Vent. Rate : 091 BPM Atrial Rate : 091 BPM P-R Int : 140 ms QRS Dur : 072 ms QT Int : 372 ms P-R-T Axes : 064 062 055 degrees QTc Int : 457 ms Normal sinus rhythm Normal ECG When compared with ECG of 09-MAY-2020 07:53, No significant change was found Referred By: Vinicius Conley Electronically Signed By:Phillip Alex
[2020-07-29] MEDS: Lithium Carbonate ER 450 MG TABLET.ER PO ×2 (09:01→19:59)
[2020-07-29] MEDS: Nicotine 21 MG PATCH.TD24 TRANSDERMA (09:01)
[2020-07-29] MEDS: Loratadine 10 MG TABLET PO (09:02)
[2020-07-29] MEDS: Docusate Sodium 100 MG CAPSULE 200 MG PO ×2 (09:02→19:58)
[2020-07-29] MEDS: DULoxetine HCl 60 MG CAPSULE.DR PO (09:02)
[2020-07-29] MEDS: Gabapentin 400 MG CAPSULE PO ×2 (09:02→12:16)
[2020-07-29] MEDS: Omeprazole 20 MG CAPSULE.DR PO (09:03)
[2020-07-29] MEDS: Ibuprofen 600 MG TABLET PO (12:18)
--- NOTE | 2020-07-29 14:06 | HO.PSYCHPN ---
Subjective Subjective Date of Service: 07/29/20 Reason For Visit: Depression Subjective Notes: Conditional Voluntary Interim History: patient has been severely anxious depressed with intrusive negative hallucinations that seem more PTSD related patient had been very self-harming and head banging previous 2 days required restraints Medication Compliance: Yes Side effects from medications: No Mental Status Exam Mental Status Exam Patient Orientation: Person, Place, Time and Situation Level of Consciousness: Awake and Lethargic Patient Behavior: Cooperative and Avoidant Mood Description: Apathetic, Constricted, Flat and Sad Affect Description: Withdrawn, Constricted, Depressed, Blunted, Angry, Flat, Sad and Apprehensive Speech Pattern: Clear Perceptual Disturbances: Hallucinations Thought Process: Intact and Distracted Thought Content: positive for Preoccupation Depressive Symptoms: Increased Anxiety, Increased Irritability, Hopelessness and Thoughts of /Suicide Abnormal Motor Activity Signs and Symptoms: Agitation Judgement and Insight: poor impulse control Diagnostics Vital Signs (24Hr): Vital Signs - 24 hr 07/28/20 17:25 07/28/20 17:40 07/28/20 17:55 Temperature 97.9 F 98.1 F 98.4 F Pulse Rate 109 H 104 H 99 Respiratory Rate 18 18 18 Blood Pressure 125/83 125/83 115/71 Pulse Oximetry 99 07/28/20 18:00 07/28/20 18:10 07/28/20 20:22 Temperature 98.9 F 97.8 F Pulse Rate 104 H 106 H 104 H Respiratory Rate 16 Blood Pressure 134/82 132/91 H 134/82 Pulse Oximetry 07/28/20 20:23 Temperature Pulse Rate 104 H Respiratory Rate Blood Pressure 134/82 Pulse Oximetry Body Mass Index 54.8 Labs Results: 07/23/20 17:09 07/23/20 17:09 Imaging Radiology Impressions: ITS Impressions Head CT 07/27/20 00:00 IMPRESSION: 1. No acute intracranial hemorrhage or mass effect. 2. Soft tissue injury and swelling along the anterior calvarium. Medications Medications Current Medications Generic Name Dose Route Start Last Admin Trade Name Freq PRN Reason Stop Dose Admin Acetaminophen 650 mg 07/24/20 01:00 07/28/20 08:56 Acetaminophen 325 Mg Tablet PO 650 mg Q6H PRN Administration pain Al Hydroxide/Mg Hydroxide 30 ml 07/24/20 18:37 Magnesium Hydrox/Alum Hydrox 30 Ml Oral.Susp PO Q6H PRN Heartburn/Nausea Albuterol Sulfate 2 puff 07/24/20 00:20 Albuterol Sulfate 90 Mcg 8 Gm Inhaler INHALE Q4H PRN Wheezing Benzocaine 1 appl 07/29/20 13:57 Benzocaine 10 % Oral Gel 9 Gm Tube MUCOUS MEM QID PRN Mouth Sore Pain Protocol Chlorpromazine HCl 150 mg 07/28/20 12:59 07/28/20 20:00 Chlorpromazine Hcl 25 Mg Tablet PO 150 mg Q4H PRN Administration Agitation Docusate Sodium 200 mg 07/24/20 09:00 07/29/20 09:02 Docusate Sodium 100 Mg Capsule PO 200 mg BID SULEIMAN Administration Duloxetine HCl 60 mg 07/24/20 09:00 07/29/20 09:02 Duloxetine Hcl 60 Mg Capsule.Dr PO 60 mg DAILY SULEIMAN Administration Gabapentin 600 mg 07/24/20 21:00 07/28/20 20:24 Gabapentin 600 Mg Tablet PO 600 mg BEDTIME SULEIMAN Administration Gabapentin 600 mg 07/30/20 09:00 Gabapentin 300 Mg Capsule PO DAILY SULEIMAN Gabapentin 600 mg 07/30/20 12:00 Gabapentin 300 Mg Capsule PO 1200 SULEIMAN Haloperidol 5 mg 07/24/20 00:20 07/28/20 20:00 Haloperidol 5 Mg Tablet PO 5 mg BID PRN Administration psychosis Haloperidol 2 mg 07/29/20 15:00 Haloperidol 1 Mg Tablet PO TID SULEIMAN Hydroxyzine HCl 50 mg 07/24/20 01:06 07/28/20 20:00 Hydroxyzine Hcl 50 Mg Tablet PO 50 mg TID PRN Administration Anxiety Ibuprofen 600 mg 07/24/20 00:20 07/29/20 12:18 Ibuprofen 600 Mg Tablet PO 600 mg QID PRN Administration severe pain [place] Carbonate 450 mg 07/27/20 09:00 07/29/20 09:01 [place] Carbonate Er 450 Mg Tablet.Er PO 450 mg BID SULEIMAN Administration Loratadine 10 mg 07/24/20 09:00 07/29/20 09:02 Loratadine 10 Mg Tablet PO 10 mg DAILY SULEIMAN Administration Lorazepam 1 mg 07/24/20 00:20 07/28/20 20:00 Lorazepam 1 Mg Tablet PO 1 mg QID PRN Administration anxiety Magnesium Hydroxide 30 ml 07/24/20 18:37 07/26/20 15:17 Milk Of Magnesia 30 Ml Oral.Susp PO 30 ml DAILY PRN Administration Constipation Nicotine 21 mg 07/26/20 10:35 07/29/20 09:01 Nicotine 21 Mg Patch.Td24 TRANSDERMA 21 mg DAILY SULEIMAN Administration Olanzapine 20 mg 07/24/20 21:00 07/28/20 20:24 Olanzapine 10 Mg Tablet PO 20 mg BEDTIME SULEIMAN Administration Omeprazole 20 mg 07/24/20 06:30 07/29/20 09:03 Omeprazole 20 Mg Capsule.Dr PO 20 mg DAILY@0630 SULEIMAN Administration Prazosin HCl 5 mg 07/27/20 21:30 07/28/20 20:23 Prazosin Hcl 5 Mg Capsule PO 5 mg BEDTIME SULEIMAN Administration Protocol Prazosin HCl 2 mg 07/30/20 12:00 Prazosin Hcl 1 Mg Capsule PO DAILY@1200 SULEIMAN Protocol Quetiapine Fumarate 100 mg 07/29/20 21:00 Quetiapine Fumarate 50 Mg Tablet PO BEDTIME SULEIMAN Trazodone HCl 50 mg 07/24/20 18:37 Trazodone Hcl 50 Mg Tablet PO BEDTIME PRN Insomnia Zolpidem Tartrate 5 mg 07/24/20 21:00 07/28/20 20:24 Zolpidem Tartrate 5 Mg Tablet PO 5 mg BEDTIME SULEIMAN Administration Allergies Allergies Allergy/AdvReac Type Severity Reaction Status Date / Time carbamazepine [From TEGRETOL] AdvReac Unknown NAUSEA & Verified 06/02/20 19:50 VOMITING topiramate [From TOPAMAX] AdvReac Unknown NAUSEA & Verified 06/02/20 19:50 VOMITING Assessment & Plan Assessment & Plan (1) Recurrent major depression-severe: Status: Acute Code(s): F33.2 - Major depressive disorder, recurrent severe without psychotic features (2) Borderline personality disorder: Status: Acute Code(s): F60.3 - Borderline personality disorder (3) Suicidal ideation: Status: Acute Code(s): R45.851 - Suicidal ideations (4) Acute post-traumatic stress disorder: Status: Acute Code(s): F43.11 - Post-traumatic stress disorder, acute Assessment and Plan: patient with significant depression intrusive flashbacks hopelessness helplessness and despair. Positive for 3 hallucinations has never she states responded to medication peers more PTSD related has had a pulse of self-harm check lithium level Haldol started low-dose 2 t.i.d. she states this has been helpful before stop Seroquel. Trazodone Periactin for nightmares consider ECT which has been helpful previously in getting patient at of acute depressive PTSD state Greater than 50% of the session was spent on counseling and/or coordination of care
[2020-07-29] MEDS: LORazepam 1 MG TABLET PO ×2 (14:27→17:52)
[2020-07-29] MEDS: HaloperidoL 5 MG TABLET PO (14:27)
[2020-07-29] MEDS: chlorproMAZINE HCl 25 MG TABLET 150 MG PO (14:52)
[2020-07-29] MEDS: HaloperidoL 1 MG TABLET 2 MG PO (17:51)
[2020-07-29] MEDS: OLANZapine 10 MG TABLET 20 MG PO (19:58)
[2020-07-29] MEDS: Gabapentin 600 MG TABLET PO (19:58)
[2020-07-29] MEDS: QUEtiapine Fumarate 50 MG TABLET 100 MG PO (19:58)
[2020-07-29] MEDS: Zolpidem Tartrate 5 MG TABLET PO (19:58)
[2020-07-29 19:59] VITALS: BP 138/79; PULSE 108
[2020-07-29] MEDS: Prazosin HCL 5 MG CAPSULE PO (19:59)
[2020-07-29 20:10] VITALS: BP 138/79; PULSE 108; TEMP 36.9
[2020-07-30 06:00] VITALS: BP 122/92; PULSE 105; RESP 20; TEMP 36.3; O2SAT 97
[2020-07-30] MEDS: Omeprazole 20 MG CAPSULE.DR PO (06:01)
[2020-07-30] MEDS: DULoxetine HCl 60 MG CAPSULE.DR PO (08:27)
[2020-07-30] MEDS: Docusate Sodium 100 MG CAPSULE 200 MG PO ×2 (08:27→19:57)
[2020-07-30] MEDS: Lithium Carbonate ER 450 MG TABLET.ER PO (08:28)
[2020-07-30] MEDS: HaloperidoL 1 MG TABLET 2 MG PO ×3 (08:28→19:58)
[2020-07-30] MEDS: Nicotine 21 MG PATCH.TD24 TRANSDERMA (08:28)
[2020-07-30] MEDS: Gabapentin 300 MG CAPSULE 600 MG PO ×2 (08:28→12:11)
[2020-07-30 12:11] VITALS: BP 126/73; PULSE 119
[2020-07-30] MEDS: Naltrexone HCl 50 MG TABLET PO (12:11)
[2020-07-30] MEDS: Prazosin HCL 1 MG CAPSULE 2 MG PO (12:11)
[2020-07-30] MEDS: hydrOXYzine HCL 50 MG TABLET PO (17:20)
[2020-07-30] MEDS: LORazepam 1 MG TABLET PO (17:20)
[2020-07-30] MEDS: Acetaminophen 325 MG TABLET 650 MG PO (17:20)
[2020-07-30 18:00] VITALS: BP 120/89; PULSE 91; RESP 18; TEMP 36.6
[2020-07-30] MEDS: chlorproMAZINE HCl 25 MG TABLET 100 MG PO (19:05)
[2020-07-30] MEDS: OLANZapine 10 MG TABLET 20 MG PO (19:57)
[2020-07-30] MEDS: Gabapentin 600 MG TABLET PO (19:58)
[2020-07-30] MEDS: Lithium Carbonate ER 300 MG TABLET.ER 600 MG PO (20:00)
[2020-07-30] MEDS: Zolpidem Tartrate 5 MG TABLET PO (20:00)
[2020-07-30 20:01] VITALS: BP 139/85; PULSE 97
[2020-07-30] MEDS: Prazosin HCL 5 MG CAPSULE PO (20:01)
[2020-07-30] MEDS: Cyproheptadine HCl 4 MG TABLET PO (20:02)
[2020-07-30] MEDS: Mirtazapine 7.5 MG TABLET PO (20:02)
--- NOTE | 2020-07-30 22:32 | PC.NURSE ---
reviewed medication restraint. completed comment form. no questions at this time.
[2020-07-31] MEDS: chlorproMAZINE HCl 25 MG TABLET 100 MG PO ×3 (00:55→22:12)
[2020-07-31] MEDS: Ibuprofen 600 MG TABLET PO (00:56)
[2020-07-31] MEDS: Naltrexone HCl 50 MG TABLET PO (09:05)
[2020-07-31] MEDS: DULoxetine HCl 60 MG CAPSULE.DR PO (09:05)
[2020-07-31] MEDS: Gabapentin 300 MG CAPSULE 600 MG PO ×2 (09:05→11:33)
[2020-07-31] MEDS: Omeprazole 20 MG CAPSULE.DR PO (09:05)
[2020-07-31] MEDS: Docusate Sodium 100 MG CAPSULE 200 MG PO ×2 (09:05→20:57)
[2020-07-31] MEDS: Lithium Carbonate ER 300 MG TABLET.ER 600 MG PO ×2 (09:06→20:57)
[2020-07-31] MEDS: HaloperidoL 1 MG TABLET 2 MG PO ×3 (09:06→20:56)
[2020-07-31] MEDS: Nicotine 21 MG PATCH.TD24 TRANSDERMA (09:09)
[2020-07-31] MEDS: LORazepam 1 MG TABLET PO ×2 (10:58→22:12)
[2020-07-31 11:33] VITALS: BP 134/89; PULSE 119
[2020-07-31] MEDS: Prazosin HCL 1 MG CAPSULE 2 MG PO (11:33)
[2020-07-31] MEDS: Acetaminophen 325 MG TABLET 650 MG PO ×2 (12:12→21:03)
[2020-07-31 13:25] VITALS: RESP 16; TEMP 36.4; O2SAT 97
--- NOTE | 2020-07-31 20:11 | P.PNPSI_ITS ---
Subjective Subjective Date of Service: 07/31/20 Reason For Visit: Depression Interim History: patient somewhat calmer today less agitated asking about the possibility of ECT which has been helpful we discussed the need for no head banging has been started on mirtazapine Periactin Medication Compliance: Yes Mental Status Exam Mental Status Exam Patient Orientation: Person, Place, Time and Situation Level of Consciousness: Awake and Lethargic Patient Behavior: Cooperative and Avoidant Mood Description: Apathetic, Constricted, Flat and Sad Affect Description: Withdrawn, Constricted, Depressed, Blunted, Angry, Flat, Sad and Apprehensive Speech Pattern: Clear Perceptual Disturbances: Hallucinations Thought Process: Intact and Distracted Thought Content: positive for Preoccupation Depressive Symptoms: Increased Anxiety, Increased Irritability, Hopelessness and Thoughts of /Suicide Abnormal Motor Activity Signs and Symptoms: Agitation Judgement and Insight: poor impulse control Diagnostics Vital Signs (24Hr): Vital Signs - 24 hr 07/31/20 11:33 07/31/20 13:25 Temperature 97.6 F Pulse Rate 119 H Respiratory Rate 16 Blood Pressure 134/89 Pulse Oximetry 97 Body Mass Index 54.8 Labs Results: 07/23/20 17:09 07/23/20 17:09 Imaging Radiology Impressions: ITS Impressions Head CT 07/27/20 00:00 IMPRESSION: 1. No acute intracranial hemorrhage or mass effect. 2. Soft tissue injury and swelling along the anterior calvarium. Medications Medications Current Medications Generic Name Dose Route Start Last Admin Trade Name Freq PRN Reason Stop Dose Admin Acetaminophen 650 mg 07/24/20 01:00 07/31/20 12:12 Acetaminophen 325 Mg Tablet PO 650 mg Q6H PRN Administration pain Al Hydroxide/Mg Hydroxide 30 ml 07/24/20 18:37 Magnesium Hydrox/Alum Hydrox 30 Ml Oral.Susp PO Q6H PRN Heartburn/Nausea Albuterol Sulfate 2 puff 07/24/20 00:20 Albuterol Sulfate 90 Mcg 8 Gm Inhaler INHALE Q4H PRN Wheezing Benzocaine 1 appl 07/29/20 13:57 Benzocaine 10 % Oral Gel 9 Gm Tube MUCOUS MEM QID PRN Mouth Sore Pain Protocol Chlorpromazine HCl 100 mg 07/30/20 11:28 07/31/20 10:57 Chlorpromazine Hcl 25 Mg Tablet PO 100 mg Q4H PRN Administration Agitation Cyproheptadine HCl 4 mg 07/29/20 21:45 07/30/20 20:02 Cyproheptadine Hcl 4 Mg Tablet PO 4 mg BEDTIME SULEIMAN Administration Docusate Sodium 200 mg 07/24/20 09:00 07/31/20 09:05 Docusate Sodium 100 Mg Capsule PO 200 mg BID SULEIMAN Administration Duloxetine HCl 60 mg 07/24/20 09:00 07/31/20 09:05 Duloxetine Hcl 60 Mg Capsule.Dr PO 60 mg DAILY SULEIMAN Administration Gabapentin 600 mg 07/24/20 21:00 07/30/20 19:58 Gabapentin 600 Mg Tablet PO 600 mg BEDTIME SULEIMAN Administration Gabapentin 600 mg 07/30/20 09:00 07/31/20 09:05 Gabapentin 300 Mg Capsule PO 600 mg DAILY SULEIMAN Administration Gabapentin 600 mg 07/30/20 12:00 07/31/20 11:33 Gabapentin 300 Mg Capsule PO 600 mg DAILY@1200 SULEIMAN Administration Haloperidol 5 mg 07/24/20 00:20 07/29/20 14:27 Haloperidol 5 Mg Tablet PO 5 mg BID PRN Administration psychosis Haloperidol 2 mg 07/29/20 15:00 07/31/20 14:47 Haloperidol 1 Mg Tablet PO 2 mg TID SULEIMAN Administration Hydroxyzine HCl 50 mg 07/24/20 01:06 07/30/20 17:20 Hydroxyzine Hcl 50 Mg Tablet PO 50 mg TID PRN Administration Anxiety Ibuprofen 600 mg 07/24/20 00:20 07/31/20 00:56 Ibuprofen 600 Mg Tablet PO 600 mg QID PRN Administration severe pain [place] Carbonate 600 mg 07/30/20 21:00 07/31/20 09:06 [place] Carbonate Er 300 Mg Tablet.Er PO 600 mg BID SULEIMAN Administration Lorazepam 1 mg 07/24/20 00:20 07/31/20 10:58 Lorazepam 1 Mg Tablet PO 1 mg QID PRN Administration anxiety Magnesium Hydroxide 30 ml 07/24/20 18:37 07/26/20 15:17 Milk Of Magnesia 30 Ml Oral.Susp PO 30 ml DAILY PRN Administration Constipation Mirtazapine 7.5 mg 07/29/20 22:00 07/30/20 20:02 Mirtazapine 7.5 Mg Tablet PO 7.5 mg BEDTIME SULEIMAN Administration Naltrexone HCl 50 mg 07/30/20 11:35 07/31/20 09:05 Naltrexone Hcl 50 Mg Tablet PO 50 mg DAILY SULEIMAN Administration Nicotine 21 mg 07/26/20 10:35 07/31/20 09:09 Nicotine 21 Mg Patch.Td24 TRANSDERMA 21 mg DAILY SULEIMAN Administration Olanzapine 20 mg 07/24/20 21:00 07/30/20 19:57 Olanzapine 10 Mg Tablet PO 20 mg BEDTIME SULEIMAN Administration Omeprazole 20 mg 07/24/20 06:30 07/31/20 09:05 Omeprazole 20 Mg Capsule.Dr PO 20 mg DAILY@0630 SULEIMAN Administration Prazosin HCl 5 mg 07/27/20 21:30 07/30/20 20:01 Prazosin Hcl 5 Mg Capsule PO 5 mg BEDTIME SULEIMAN Administration Protocol Prazosin HCl 2 mg 07/30/20 12:00 07/31/20 11:33 Prazosin Hcl 1 Mg Capsule PO 2 mg DAILY@1200 SULEIMAN Administration Protocol Trazodone HCl 50 mg 07/24/20 18:37 Trazodone Hcl 50 Mg Tablet PO BEDTIME PRN Insomnia Zolpidem Tartrate 5 mg 07/24/20 21:00 07/30/20 20:00 Zolpidem Tartrate 5 Mg Tablet PO 5 mg BEDTIME SULEIMAN Administration Allergies Allergies Allergy/AdvReac Type Severity Reaction Status Date / Time carbamazepine [From TEGRETOL] AdvReac Unknown NAUSEA & Verified 06/02/20 19:50 VOMITING topiramate [From TOPAMAX] AdvReac Unknown NAUSEA & Verified 06/02/20 19:50 VOMITING Assessment & Plan Assessment & Plan (1) Recurrent major depression-severe: Status: Acute Code(s): F33.2 - Major depressive disorder, recurrent severe without psychotic features Assessment and Plan: continue mirtazapine Periactin started for nightmares naltrexone for self- harming behavior off-label patient reviewing DBT material asking about possibility of ECT looking at referral to respite or senior care (2) Borderline personality disorder: Status: Acute Code(s): F60.3 - Borderline personality disorder Greater than 50% of the session was spent on counseling and/or coordination of care Informed Consent: understands Reason for contiued inpatient stay Substantial Risk for: harm to self
[2020-07-31] MEDS: Zolpidem Tartrate 5 MG TABLET PO (20:56)
[2020-07-31] MEDS: Gabapentin 600 MG TABLET PO (20:56)
[2020-07-31] MEDS: Mirtazapine 7.5 MG TABLET PO (20:56)
[2020-07-31 20:57] VITALS: BP 125/88; PULSE 100
[2020-07-31] MEDS: Cyproheptadine HCl 4 MG TABLET PO (20:57)
[2020-07-31] MEDS: Prazosin HCL 5 MG CAPSULE PO (20:57)
[2020-07-31] MEDS: OLANZapine 10 MG TABLET 20 MG PO (20:57)
[2020-07-31 23:09] VITALS: TEMP 36.4
[2020-08-01] MEDS: chlorproMAZINE HCl 25 MG TABLET 100 MG PO ×2 (04:28→15:44)
[2020-08-01] MEDS: Acetaminophen 325 MG TABLET 650 MG PO ×2 (04:28→18:18)
[2020-08-01] MEDS: Omeprazole 20 MG CAPSULE.DR PO (04:29)
[2020-08-01 04:30] VITALS: BP 100/80; PULSE 124; RESP 18; TEMP 36.3; O2SAT 97
[2020-08-01] MEDS: DULoxetine HCl 60 MG CAPSULE.DR PO (09:08)
[2020-08-01] MEDS: Naltrexone HCl 50 MG TABLET PO (09:08)
[2020-08-01] MEDS: Docusate Sodium 100 MG CAPSULE 200 MG PO ×2 (09:08→20:49)
[2020-08-01] MEDS: Lithium Carbonate ER 300 MG TABLET.ER 600 MG PO ×2 (09:08→20:49)
[2020-08-01] MEDS: Gabapentin 300 MG CAPSULE 600 MG PO ×2 (09:08→12:13)
[2020-08-01] MEDS: HaloperidoL 1 MG TABLET 2 MG PO ×3 (09:08→20:49)
[2020-08-01] MEDS: Nicotine 21 MG PATCH.TD24 TRANSDERMA (09:08)
[2020-08-01 11:40] VITALS: BMI 46.5
[2020-08-01 12:13] VITALS: BP 134/75; PULSE 104
[2020-08-01] MEDS: Prazosin HCL 1 MG CAPSULE 2 MG PO (12:13)
[2020-08-01] MEDS: HaloperidoL 5 MG TABLET PO (15:44)
[2020-08-01 18:00] VITALS: TEMP 36.5
[2020-08-01] MEDS: Albuterol Sulfate 90 MCG 8 GM INHALER 2 PUFF INHALE (18:24)
[2020-08-01] MEDS: LORazepam 1 MG TABLET PO (19:33)
[2020-08-01 20:48] VITALS: BP 115/69; PULSE 112
[2020-08-01] MEDS: Mirtazapine 7.5 MG TABLET PO (20:48)
[2020-08-01] MEDS: Gabapentin 600 MG TABLET PO (20:48)
[2020-08-01] MEDS: Prazosin HCL 5 MG CAPSULE PO (20:48)
[2020-08-01] MEDS: Zolpidem Tartrate 5 MG TABLET PO (20:48)
[2020-08-01] MEDS: Cyproheptadine HCl 4 MG TABLET PO (20:48)
[2020-08-01] MEDS: OLANZapine 10 MG TABLET 20 MG PO (20:49)
[2020-08-01 21:41] LABS: Glucose Urine UA NEG (NEG); Leukocyte Esterase Urine NEG (NEG); Nitrite Urine NEG (NEG); Specific Gravity - Urine 1.015 (1.005-1.025); Urine Blood TRACE (NEG); Urine Ketones NEG (NEG); Urine Protein NEG (NEG-TRACE)
[2020-08-01 21:43] LABS: Appearance Urine CLEAR; Color Urine STRAW
[2020-08-01 21:55] LABS: Bacteria Urine TRACE /LPF; Squamous Epithelial Cell Urine 2+ /LPF; WBC Urine 0-2 /HPF (0-4)
--- NOTE | 2020-08-01 22:09 | HO.PSYCHPN ---
Subjective Subjective Date of Service: 08/01/20 Reason For Visit: Depression Subjective Notes: Conditional Voluntary Interim History: patient with depression frequent ruminations intrusive recollections regarding relatively recent trauma intrusive auditory hallucinations some improvement with mirtazapine low-dose Haldol patient with noted restlessness Medication Compliance: Yes Side effects from medications: Yes Mental Status Exam Mental Status Exam Narrative: complains of mouth pain restlessness noted question oral facial dyskinesia versus movements related to mouth pain Patient Appearance: Disheveled Patient Orientation: Person, Place, Time and Situation Level of Consciousness: Awake Patient Behavior: Cooperative and Avoidant Mood Description: Apathetic, Constricted, Flat and Sad Affect Description: Withdrawn, Constricted, Depressed, Blunted, Angry, Flat, Sad and Apprehensive Speech Pattern: Clear Perceptual Disturbances: Hallucinations Thought Process: Intact and Distracted Thought Content: positive for Preoccupation Depressive Symptoms: Increased Anxiety, Increased Irritability, Hopelessness and Thoughts of /Suicide Abnormal Motor Activity Signs and Symptoms: Agitation Judgement and Insight: poor impulse control Diagnostics Vital Signs (24Hr): Vital Signs - 24 hr 07/31/20 23:09 08/01/20 04:30 08/01/20 12:13 Temperature 97.6 F 97.4 F Pulse Rate 124 H 104 H Respiratory Rate 18 Blood Pressure 100/80 134/75 Pulse Oximetry 97 08/01/20 20:48 Temperature Pulse Rate 112 H Respiratory Rate Blood Pressure 115/69 Pulse Oximetry Body Mass Index 46.5 Labs Results: 07/23/20 17:09 07/23/20 17:09 Labs: Laboratory Results - last 48 hr 08/01/20 21:18 Urine Color STRAW Urine Appearance CLEAR Urine pH 6.0 Ur Specific [place] 1.015 Urine Protein NEG Urine Glucose (UA) NEG Urine Ketones NEG Urine Blood TRACE Urine Nitrite NEG Ur Leukocyte Esterase NEG Urine RBC 1-4 Urine WBC 0-2 Ur Squamous Epith Cells 2+ Urine Bacteria TRACE Imaging Radiology Impressions: ITS Impressions Head CT 07/27/20 00:00 IMPRESSION: 1. No acute intracranial hemorrhage or mass effect. 2. Soft tissue injury and swelling along the anterior calvarium. Medications Medications Current Medications Generic Name Dose Route Start Last Admin Trade Name Freq PRN Reason Stop Dose Admin Acetaminophen 650 mg 07/24/20 01:00 08/01/20 18:18 Acetaminophen 325 Mg Tablet PO 650 mg Q6H PRN Administration pain Al Hydroxide/Mg Hydroxide 30 ml 07/24/20 18:37 Magnesium Hydrox/Alum Hydrox 30 Ml Oral.Susp PO Q6H PRN Heartburn/Nausea Albuterol Sulfate 2 puff 07/24/20 00:20 08/01/20 18:24 Albuterol Sulfate 90 Mcg 8 Gm Inhaler INHALE 2 puff Q4H PRN Administration Wheezing Benzocaine 1 appl 07/29/20 13:57 08/01/20 18:17 Benzocaine 10 % Oral Gel 9 Gm Tube MUCOUS MEM 1 appl QID PRN Administration Mouth Sore Pain Protocol Chlorpromazine HCl 100 mg 07/30/20 11:28 08/01/20 15:44 Chlorpromazine Hcl 25 Mg Tablet PO 100 mg Q4H PRN Administration Agitation Cyproheptadine HCl 4 mg 07/29/20 21:45 08/01/20 20:48 Cyproheptadine Hcl 4 Mg Tablet PO 4 mg BEDTIME SULEIMAN Administration Docusate Sodium 200 mg 07/24/20 09:00 08/01/20 20:49 Docusate Sodium 100 Mg Capsule PO 200 mg BID SULEIMAN Administration Duloxetine HCl 60 mg 07/24/20 09:00 08/01/20 09:08 Duloxetine Hcl 60 Mg Capsule.Dr PO 60 mg DAILY SULEIMAN Administration Gabapentin 600 mg 07/24/20 21:00 08/01/20 20:48 Gabapentin 600 Mg Tablet PO 600 mg BEDTIME SULEIMAN Administration Gabapentin 600 mg 07/30/20 09:00 08/01/20 09:08 Gabapentin 300 Mg Capsule PO 600 mg DAILY SULEIMAN Administration Gabapentin 600 mg 07/30/20 12:00 08/01/20 12:13 Gabapentin 300 Mg Capsule PO 600 mg DAILY@1200 SULEIMAN Administration Haloperidol 5 mg 07/24/20 00:20 08/01/20 15:44 Haloperidol 5 Mg Tablet PO 5 mg BID PRN Administration psychosis Haloperidol 2 mg 07/29/20 15:00 08/01/20 20:49 Haloperidol 1 Mg Tablet PO 2 mg TID SULEIMAN Administration Hydroxyzine HCl 50 mg 07/24/20 01:06 07/30/20 17:20 Hydroxyzine Hcl 50 Mg Tablet PO 50 mg TID PRN Administration Anxiety Ibuprofen 600 mg 07/24/20 00:20 07/31/20 00:56 Ibuprofen 600 Mg Tablet PO 600 mg QID PRN Administration severe pain Lidocaine 1 patch 08/01/20 18:35 08/01/20 20:55 Lidocaine 4 % Patch Adh..Patch TRANSDERMA Not Given DAILY SULEIMAN Protocol [place] Carbonate 600 mg 07/30/20 21:00 08/01/20 20:49 [place] Carbonate Er 300 Mg Tablet.Er PO 600 mg BID SULEIMAN Administration Lorazepam 1 mg 07/24/20 00:20 08/01/20 19:33 Lorazepam 1 Mg Tablet PO 1 mg QID PRN Administration anxiety Magnesium Hydroxide 30 ml 07/24/20 18:37 07/26/20 15:17 Milk Of Magnesia 30 Ml Oral.Susp PO 30 ml DAILY PRN Administration Constipation Mirtazapine 7.5 mg 07/29/20 22:00 08/01/20 20:48 Mirtazapine 7.5 Mg Tablet PO 7.5 mg BEDTIME SULEIMAN Administration Naltrexone HCl 50 mg 07/30/20 11:35 08/01/20 09:08 Naltrexone Hcl 50 Mg Tablet PO 50 mg DAILY SULEIMAN Administration Nicotine 21 mg 07/26/20 10:35 08/01/20 09:08 Nicotine 21 Mg Patch.Td24 TRANSDERMA 21 mg DAILY SULEIMAN Administration Olanzapine 20 mg 07/24/20 21:00 08/01/20 20:49 Olanzapine 10 Mg Tablet PO 20 mg BEDTIME SULEIMAN Administration Omeprazole 20 mg 07/24/20 06:30 08/01/20 04:29 Omeprazole 20 Mg Capsule.Dr PO 20 mg DAILY@0630 SULEIMAN Administration Prazosin HCl 5 mg 07/27/20 21:30 08/01/20 20:48 Prazosin Hcl 5 Mg Capsule PO 5 mg BEDTIME SULEIMAN Administration Protocol Prazosin HCl 2 mg 07/30/20 12:00 08/01/20 12:13 Prazosin Hcl 1 Mg Capsule PO 2 mg DAILY@1200 SULEIMAN Administration Protocol Trazodone HCl 50 mg 07/24/20 18:37 Trazodone Hcl 50 Mg Tablet PO BEDTIME PRN Insomnia Zolpidem Tartrate 5 mg 07/24/20 21:00 08/01/20 20:48 Zolpidem Tartrate 5 Mg Tablet PO 5 mg BEDTIME SULEIMAN Administration Allergies Allergies Allergy/AdvReac Type Severity Reaction Status Date / Time carbamazepine [From TEGRETOL] AdvReac Unknown NAUSEA & Verified 06/02/20 19:50 VOMITING topiramate [From TOPAMAX] AdvReac Unknown NAUSEA & Verified 06/02/20 19:50 VOMITING Assessment & Plan Assessment & Plan (1) Recurrent major depression-severe: Status: Acute Code(s): F33.2 - Major depressive disorder, recurrent severe without psychotic features (2) Borderline personality disorder: Status: Acute Code(s): F60.3 - Borderline personality disorder (3) Acute post-traumatic stress disorder: Status: Acute Code(s): F43.11 - Post-traumatic stress disorder, acute Assessment and Plan: patient with history of recurrent depression psychotic PTSD borderline personality disorder that had a fairly good response to ECT with maintenance. Despite chronic PTSD and borderline personality disorder it did seem to help stabilize her mood decrease her PTSD depressive episodes and decrease hospitalizations in quality of life. Patient has failed multiple antidepressant trials has had frequent hospitalizations its ECT was discontinued this includes trials of lithium Cymbalta Seroquel Haldol olanzapine mirtazapine. Patient remains severely depressed on constant one-to-one and almost continual hospitalization had had past improve response with ECT without significant side effects. ECT was interrupted by the COVID pandemic get medical clearance for ECT so evaluation for tooth abscess Greater than 50% of the session was spent on counseling and/or coordination of care
[2020-08-02] MEDS: chlorproMAZINE HCl 25 MG TABLET 100 MG PO ×3 (04:35→18:43)
[2020-08-02] MEDS: LORazepam 1 MG TABLET PO (04:35)
[2020-08-02] MEDS: Omeprazole 20 MG CAPSULE.DR PO (04:35)
[2020-08-02 04:40] VITALS: BP 135/81; PULSE 87; RESP 18; TEMP 36.2; O2SAT 97
[2020-08-02] MEDS: Naltrexone HCl 50 MG TABLET PO (08:39)
[2020-08-02] MEDS: HaloperidoL 1 MG TABLET 2 MG PO ×3 (08:40→20:11)
[2020-08-02] MEDS: Lithium Carbonate ER 300 MG TABLET.ER 600 MG PO ×2 (08:40→20:12)
[2020-08-02] MEDS: DULoxetine HCl 60 MG CAPSULE.DR PO (08:41)
[2020-08-02] MEDS: Docusate Sodium 100 MG CAPSULE 200 MG PO ×2 (08:41→20:12)
[2020-08-02] MEDS: Gabapentin 300 MG CAPSULE 600 MG PO ×2 (08:41→13:21)
[2020-08-02] MEDS: Lidocaine 4 % Patch ADH..PATCH 1 PATCH TRANSDERMA (08:46)
[2020-08-02] MEDS: Nicotine 21 MG PATCH.TD24 TRANSDERMA (09:05)
[2020-08-02] MEDS: Magnesium Hydrox/Alum Hydrox 30 ML ORAL.SUSP PO (10:01)
--- NOTE | 2020-08-02 10:39 | P.CONIM_ITS ---
History of Present Illness Data of Consult Service Date: 08/02/20 Requesting physician: Abdoul Silva Primary Care Provider: George Mejia MD [facility] Reason for consult: ECT evaluation 35-year-old female with history of asthma, smoking, depression, PTSD admitted to for severe depression with intention of self-harm, specifically has been banging her head against the wall and has laceration on forhead--she has been feeling depressed, neglected and depressed. She is familiar with ECT as she has had in the past and felt better. She has no acute complaint at this time. No sob, no fever, no cough. No past cardiac history. ECG on 07/29/20 was normal. Review of Systems Review of Systems: Gen: no fever Resp: no sob, no cough CV: no chest, no CHEATHAM, no leg edema GI: No n/v, no abd pain Neuro: No confusion Psych: Depressed Yes all other systems are reviewed and are negative PMFSH Medical History Adjustment disorder Anxiety Asthma Borderline personality disorder Depression Intentional self-harm PTSD (post-traumatic stress disorder) Recurrent major depression-severe Schizoaffective disorder Self-harming behavior Suicidal ideation Functional capacity: independent ambulation Family history: reviewed and not pertinent Social History Household Members: Other Household Members Other:: detention Housing: House Do you presently have visiting nurse or other home services: No Alcohol intake: unknown Smoking Status: Current every day smoker Tobacco Type: Cigarette Packs Per Day: 0.5 Cigarettes Per Day: 10.0 Years Smoked: 15 Smoked in Last 30 Days: Yes Patient Interested in Nicotine Replacement: Yes Patient Given Instructions on How to Stop Smoking: No Second Hand Smoke Exposure: No Use of substances other than those prescribed or required for medical reasons: Yes Substance Use Type: Marijuana Substance Use Frequency: Daily Last Used Substance: Days (ago) Currently Displaying Signs/Symptoms of Drug Intoxication Withdrawal: No Any prior treatment program specific to substance use: No Have you been hit, kicked, punched, or otherwise hurt by someone within the past year? If so, by whom?: No Is there a partner from a previous relationship who is making you feel unsafe n ow?: No Are you made to feel afraid or neglected: No Spiritual Healthcare Practices: none Jehovah'[employer] Witness Healthcare Practices: none Cultural Healthcare Practices: none Advance Directives: No Advance Directives Information Provided: Yes Suicidal Behavior: Self-injurious behavior Access to Firearms: No Do you have thoughts of harming others: None Do you have a plan to hurt others: No Plan Recently lost weight without trying: Unsure service: No Meds Allergies Allergy/AdvReac Type Severity Reaction Status Date / Time carbamazepine [From TEGRETOL] AdvReac Unknown NAUSEA & Verified 06/02/20 19:50 VOMITING topiramate [From TOPAMAX] AdvReac Unknown NAUSEA & Verified 06/02/20 19:50 VOMITING Home Medications Medication Instructions Recorded Confirmed Type albuterol sulfate 2 puff INHALATION Q4-6H PRN 05/15/20 07/23/20 History cetirizine 10 mg PO DAILY 05/15/20 07/23/20 History chlorpromazine 150 mg PO Q4H PRN 05/15/20 07/23/20 History docusate sodium 200 mg PO BID 05/15/20 07/23/20 History duloxetine 60 mg PO DAILY 05/15/20 07/23/20 History gabapentin 600 mg PO BEDTIME 05/15/20 07/23/20 History haloperidol decanoate 100 mg IM Q4W 05/15/20 07/03/20 History hydroxyzine pamoate 50 mg PO TID PRN 05/15/20 07/23/20 History lithium carbonate 600 mg PO BEDTIME 05/15/20 07/23/20 History olanzapine 20 mg PO BEDTIME 05/15/20 07/23/20 History omeprazole 20 mg PO DAILY@0630 05/15/20 07/23/20 History prazosin 5 mg PO BEDTIME 05/15/20 07/23/20 History acetaminophen 650 mg PO Q6H PRN 06/02/20 07/23/20 History trazodone 100 mg PO BEDTIME 06/02/20 07/23/20 History zolpidem 12.5 mg PO BEDTIME 06/02/20 07/23/20 History haloperidol 1 tab PO BID PRN 06/24/20 07/23/20 History ibuprofen 1 tab PO QID PRN 06/24/20 07/23/20 History lorazepam 1 tab PO QID PRN 06/24/20 07/23/20 History quetiapine 400 mg PO BEDTIME 06/24/20 07/23/20 History gabapentin 400 mg PO QAM 07/03/20 07/23/20 History gabapentin 400 mg PO QNOON 07/03/20 07/23/20 History Physical Exam 2 Vital Signs and Narrative: Vital Signs: Last Vital Signs Temp 97.1 F 08/02/20 04:40 Pulse 87 08/02/20 04:40 Resp 18 08/02/20 04:40 BP 135/81 08/02/20 04:40 Pulse Ox 97 08/02/20 04:40 Body Mass Index 46.5 Constitutional Awake and Alert, No apparent distress Neck Supple, No lymphadenopathy Cardiovascular RRR, No M/R/G, S1 S2, No S3 S4, No pedal edema Respiratory Lungs clear, No respiratory distress Gastrointestinal Non tender, Non-distended Skin No rash Neurological Alert & oriented x3 Psychological Appropriate affect, cooperative, NO Si at time evaluation Results Labs CBC and Chem 7: 07/23/20 17:09 07/23/20 17:09 Labs: Laboratory Results - last 24 hr 08/01/20 21:18 Urine Color STRAW Urine Appearance CLEAR Urine pH 6.0 Ur Specific [place] 1.015 Urine Protein NEG Urine Glucose (UA) NEG Urine Ketones NEG Urine Blood TRACE Urine Nitrite NEG Ur Leukocyte Esterase NEG Urine RBC 1-4 Urine WBC 0-2 Ur Squamous Epith Cells 2+ Urine Bacteria TRACE Assessment and Plan (1) Recurrent major depression-severe: Status: Acute (2) Borderline personality disorder: Status: Acute (3) Injury, self-inflicted: Status: Acute (4) Suicidal ideation: Status: Acute (5) Acute post-traumatic stress disorder: Status: Acute 35 year female with major depression, PTSD here with decompensated depresion with SI, self-injury behavior and is planned to have ECT Recomendation: Proceed with ECT as no medical contraindication at this time. Observe all standard ECT protocol. Asthma is stable--albuterol PRN. Happy to paricipate in the care of this patient, call for question.
[2020-08-02] MEDS: Milk of Magnesia 30 ML ORAL.SUSP PO (11:59)
[2020-08-02 13:21] VITALS: BP 136/86; PULSE 107
[2020-08-02] MEDS: Prazosin HCL 1 MG CAPSULE 2 MG PO (13:21)
[2020-08-02] MEDS: HaloperidoL 5 MG TABLET PO (13:21)
[2020-08-02] MEDS: Amoxicillin/Potassium Clav 875 MG TABLET PO ×2 (14:00→23:59)
[2020-08-02 16:18] VITALS: BP 106/60; PULSE 106; TEMP 36.7
[2020-08-02] MEDS: Acetaminophen 325 MG TABLET 650 MG PO (16:55)
[2020-08-02 20:11] VITALS: BP 122/63; PULSE 101
[2020-08-02] MEDS: Prazosin HCL 5 MG CAPSULE PO (20:11)
[2020-08-02] MEDS: Gabapentin 600 MG TABLET PO (20:11)
[2020-08-02] MEDS: OLANZapine 10 MG TABLET 20 MG PO (20:12)
[2020-08-02] MEDS: Cyproheptadine HCl 4 MG TABLET PO (20:12)
[2020-08-02] MEDS: Albuterol Sulfate 90 MCG 8 GM INHALER 2 PUFF INHALE (20:50)
[2020-08-02] MEDS: Mirtazapine 7.5 MG TABLET PO (20:56)
--- NOTE | 2020-08-02 21:53 | P.PNPSI_ITS ---
Subjective Subjective Date of Service: 08/02/20 Reason For Visit: Depression Subjective Notes: Conditional Voluntary Interim History: PATIENT MEDICAL CLEARED FOR ECT HAS NOT BEEN SELF-HARMING Medication Compliance: Yes Side effects from medications: No Mental Status Exam Mental Status Exam Narrative: complains of mouth pain restlessness noted question oral facial dyskinesia versus movements related to mouth pain Patient Appearance: Disheveled Patient Orientation: Person, Place, Time and Situation Level of Consciousness: Awake Patient Behavior: Appropriate and Cooperative Mood Description: Apathetic, Constricted, Flat and Sad Affect Description: Withdrawn, Constricted, Depressed, Blunted, Angry, Flat, Sad and Apprehensive Speech Pattern: Clear Perceptual Disturbances: Hallucinations Thought Process: Intact and Distracted Thought Content: positive for Preoccupation Depressive Symptoms: Increased Anxiety, Increased Irritability, Hopelessness and Thoughts of /Suicide Abnormal Motor Activity Signs and Symptoms: Agitation Judgement and Insight: poor impulse control Diagnostics Vital Signs (24Hr): Vital Signs - 24 hr 08/02/20 04:40 08/02/20 13:21 08/02/20 16:18 Temperature 97.1 F 98.1 F Pulse Rate 87 107 H 106 H Respiratory Rate 18 Blood Pressure 135/81 136/86 106/60 Pulse Oximetry 97 08/02/20 20:11 Temperature Pulse Rate 101 H Respiratory Rate Blood Pressure 122/63 Pulse Oximetry Body Mass Index 46.5 Labs Results: 07/23/20 17:09 07/23/20 17:09 Labs: Laboratory Results - last 48 hr 08/01/20 21:18 Urine Color STRAW Urine Appearance CLEAR Urine pH 6.0 Ur Specific [place] 1.015 Urine Protein NEG Urine Glucose (UA) NEG Urine Ketones NEG Urine Blood TRACE Urine Nitrite NEG Ur Leukocyte Esterase NEG Urine RBC 1-4 Urine WBC 0-2 Ur Squamous Epith Cells 2+ Urine Bacteria TRACE Imaging Radiology Impressions: ITS Impressions Head CT 07/27/20 00:00 IMPRESSION: 1. No acute intracranial hemorrhage or mass effect. 2. Soft tissue injury and swelling along the anterior calvarium. Medications Medications Current Medications Generic Name Dose Route Start Last Admin Trade Name Freq PRN Reason Stop Dose Admin Acetaminophen 650 mg 07/24/20 01:00 08/02/20 16:55 Acetaminophen 325 Mg Tablet PO 650 mg Q6H PRN Administration pain Al Hydroxide/Mg Hydroxide 30 ml 07/24/20 18:37 08/02/20 10:01 Magnesium Hydrox/Alum Hydrox 30 Ml Oral.Susp PO 30 ml Q6H PRN Administration Heartburn/Nausea Albuterol Sulfate 2 puff 07/24/20 00:20 08/02/20 20:50 Albuterol Sulfate 90 Mcg 8 Gm Inhaler INHALE 2 puff Q4H PRN Administration Wheezing Amoxicillin/Clavulanate Potassium 875 mg 08/02/20 14:00 08/02/20 14:00 Amoxicillin/Potassium Clav 875 Mg Tablet PO 875 mg Q12H SULEIMAN Administration Benzocaine 1 appl 07/29/20 13:57 08/01/20 18:17 Benzocaine 10 % Oral Gel 9 Gm Tube MUCOUS MEM 1 appl QID PRN Administration Mouth Sore Pain Protocol Chlorpromazine HCl 100 mg 07/30/20 11:28 08/02/20 18:43 Chlorpromazine Hcl 25 Mg Tablet PO 100 mg Q4H PRN Administration Agitation Cyproheptadine HCl 4 mg 07/29/20 21:45 08/02/20 20:12 Cyproheptadine Hcl 4 Mg Tablet PO 4 mg BEDTIME SULEIMAN Administration Docusate Sodium 200 mg 07/24/20 09:00 08/02/20 20:12 Docusate Sodium 100 Mg Capsule PO 200 mg BID SULEIMAN Administration Duloxetine HCl 60 mg 07/24/20 09:00 08/02/20 08:41 Duloxetine Hcl 60 Mg Capsule.Dr PO 60 mg DAILY SULEIMAN Administration Gabapentin 600 mg 07/24/20 21:00 08/02/20 20:11 Gabapentin 600 Mg Tablet PO 600 mg BEDTIME SULEIMAN Administration Gabapentin 600 mg 07/30/20 09:00 08/02/20 08:41 Gabapentin 300 Mg Capsule PO 600 mg DAILY SULEIMAN Administration Gabapentin 600 mg 07/30/20 12:00 08/02/20 13:21 Gabapentin 300 Mg Capsule PO 600 mg DAILY@1200 SULEIMAN Administration Haloperidol 5 mg 07/24/20 00:20 08/02/20 13:21 Haloperidol 5 Mg Tablet PO 5 mg BID PRN Administration psychosis Haloperidol 2 mg 07/29/20 15:00 08/02/20 20:11 Haloperidol 1 Mg Tablet PO 2 mg TID SULEIMAN Administration Hydroxyzine HCl 50 mg 07/24/20 01:06 07/30/20 17:20 Hydroxyzine Hcl 50 Mg Tablet PO 50 mg TID PRN Administration Anxiety Ibuprofen 600 mg 07/24/20 00:20 07/31/20 00:56 Ibuprofen 600 Mg Tablet PO 600 mg QID PRN Administration severe pain Lidocaine 1 patch 08/01/20 18:35 08/02/20 08:46 Lidocaine 4 % Patch Adh..Patch TRANSDERMA 1 patch DAILY SULEIMAN Administration Protocol [place] Carbonate 600 mg 07/30/20 21:00 08/02/20 20:12 [place] Carbonate Er 300 Mg Tablet.Er PO 600 mg BID SULEIMAN Administration Lorazepam 1 mg 08/02/20 21:46 Lorazepam 1 Mg Tablet PO QID PRN anxiety/restlessness Magnesium Hydroxide 30 ml 07/24/20 18:37 08/02/20 11:59 Milk Of Magnesia 30 Ml Oral.Susp PO 30 ml DAILY PRN Administration Constipation Mirtazapine 7.5 mg 07/29/20 22:00 08/02/20 20:56 Mirtazapine 7.5 Mg Tablet PO 7.5 mg BEDTIME SULEIMAN Administration Naltrexone HCl 50 mg 07/30/20 11:35 08/02/20 08:39 Naltrexone Hcl 50 Mg Tablet PO 50 mg DAILY SULEIMAN Administration Nicotine 21 mg 07/26/20 10:35 08/02/20 09:05 Nicotine 21 Mg Patch.Td24 TRANSDERMA 21 mg DAILY SULEIMAN Administration Olanzapine 20 mg 07/24/20 21:00 08/02/20 20:12 Olanzapine 10 Mg Tablet PO 20 mg BEDTIME SULEIMAN Administration Omeprazole 20 mg 07/24/20 06:30 08/02/20 04:35 Omeprazole 20 Mg Capsule.Dr PO 20 mg DAILY@0630 SULEIMAN Administration Prazosin HCl 5 mg 07/27/20 21:30 08/02/20 20:11 Prazosin Hcl 5 Mg Capsule PO 5 mg BEDTIME SULEIMAN Administration Protocol Prazosin HCl 2 mg 07/30/20 12:00 08/02/20 13:21 Prazosin Hcl 1 Mg Capsule PO 2 mg DAILY@1200 SULEIMAN Administration Protocol Simethicone 80 mg 08/03/20 08:00 Simethicone 80 Mg Tab.Chew PO QIDWMHS SULEIMAN Trazodone HCl 50 mg 07/24/20 18:37 Trazodone Hcl 50 Mg Tablet PO BEDTIME PRN Insomnia Allergies Allergies Allergy/AdvReac Type Severity Reaction Status Date / Time carbamazepine [From TEGRETOL] AdvReac Unknown NAUSEA & Verified 06/02/20 19:50 VOMITING topiramate [From TOPAMAX] AdvReac Unknown NAUSEA & Verified 06/02/20 19:50 VOMITING Assessment & Plan Assessment & Plan (1) Recurrent major depression-severe: Status: Acute Code(s): F33.2 - Major depressive disorder, recurrent severe without psychotic features Assessment and Plan: PATIENT LESS AGITATED MORE COOPERATIVE MEDICALLY CLEARED FOR ECT HAS FAILED MULTIPLE TREATMENTS STABILIZE BETTER WITH ECT (2) Borderline personality disorder: Status: Acute Code(s): F60.3 - Borderline personality disorder (3) Suicidal ideation: Status: Acute Code(s): R45.851 - Suicidal ideations (4) Injury, self-inflicted: Status: Acute Code(s): Z72.89 - Other problems related to lifestyle (5) Acute post-traumatic stress disorder: Status: Acute Code(s): F43.11 - Post-traumatic stress disorder, acute Greater than 50% of the session was spent on counseling and/or coordination of care
[2020-08-03] MEDS: hydrOXYzine HCL 50 MG TABLET PO ×2 (03:40→21:57)
[2020-08-03 06:00] VITALS: BP 124/69; PULSE 107; TEMP 36.9
[2020-08-03] MEDS: Nicotine 21 MG PATCH.TD24 TRANSDERMA (11:13)
[2020-08-03] MEDS: Lithium Carbonate ER 300 MG TABLET.ER 600 MG PO ×2 (11:14→20:42)
[2020-08-03] MEDS: HaloperidoL 1 MG TABLET 2 MG PO ×3 (11:14→20:44)
[2020-08-03] MEDS: Docusate Sodium 100 MG CAPSULE 200 MG PO ×2 (11:15→20:42)
[2020-08-03] MEDS: Amoxicillin/Potassium Clav 875 MG TABLET PO ×3 (11:15→20:43)
[2020-08-03] MEDS: Naltrexone HCl 50 MG TABLET PO (11:16)
[2020-08-03] MEDS: DULoxetine HCl 60 MG CAPSULE.DR PO (11:16)
[2020-08-03] MEDS: Lidocaine 4 % Patch ADH..PATCH 1 PATCH TRANSDERMA (11:18)
[2020-08-03] MEDS: Omeprazole 20 MG CAPSULE.DR PO (11:26)
[2020-08-03 11:27] VITALS: BP 124/69; PULSE 107
[2020-08-03] MEDS: Prazosin HCL 1 MG CAPSULE 2 MG PO (11:27)
[2020-08-03] MEDS: Gabapentin 300 MG CAPSULE 600 MG PO (11:32)
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
[2020-08-03] MEDS: chlorproMAZINE HCl 25 MG TABLET 100 MG PO ×2 (14:17→21:57)
[2020-08-03 17:09] VITALS: BP 109/78; PULSE 103; TEMP 37.1
[2020-08-03] MEDS: Albuterol Sulfate 90 MCG 8 GM INHALER 2 PUFF INHALE (17:28)
--- NOTE | 2020-08-03 17:56 | P.PNPSI_ITS ---
Subjective Subjective Date of Service: 08/03/20 Reason For Visit: Depression Interim History: Stella sad and anxious today; spending much time in her bed; appears frightened and states she is anxious and depressed; PATIENT MEDICAL CLEARED FOR ECT which is scheduled for Wednesday. Review of Systems Review of Systems Gen: no fever Resp: no sob, no cough CV: no chest, no CHEATHAM, no leg edema GI: No n/v, no abd pain Neuro: No confusion Psych: Depressed Comments: Soft tissue injury and swelling on forhead Mental Status Exam Mental Status Exam Patient Appearance: Disheveled and Unkempt Patient Orientation: Person, Place, Time and Situation Level of Consciousness: Awake Patient Behavior: Appropriate, Cooperative and Anxious Mood Description: Apathetic, Constricted, Flat and Sad Affect Description: Withdrawn, Constricted, Depressed, Blunted, Angry, Flat, Sad and Apprehensive Ability to Follow Directions: Fair Speech Pattern: Clear and Soft-Spoken Thought Content: positive for Preoccupation Depressive Symptoms: Increased Anxiety, Diff. Making Decisions, Difficulty Sleeping, Crying Spells and Feelings of Worthlessness Judgement: Fair Diagnostics Vital Signs (24Hr): Vital Signs - 24 hr 08/02/20 20:11 08/03/20 06:00 08/03/20 11:27 Temperature 98.4 F Pulse Rate 101 H 107 H 107 H Blood Pressure 122/63 124/69 124/69 08/03/20 17:09 Temperature 98.7 F Pulse Rate 103 H Blood Pressure 109/78 Body Mass Index 46.5 Labs Results: 07/23/20 17:09 07/23/20 17:09 Labs: Laboratory Results - last 48 hr 08/01/20 21:18 Urine Color STRAW Urine Appearance CLEAR Urine pH 6.0 Ur Specific [place] 1.015 Urine Protein NEG Urine Glucose (UA) NEG Urine Ketones NEG Urine Blood TRACE Urine Nitrite NEG Ur Leukocyte Esterase NEG Urine RBC 1-4 Urine WBC 0-2 Ur Squamous Epith Cells 2+ Urine Bacteria TRACE Imaging Radiology Impressions: ITS Impressions Head CT 07/27/20 00:00 IMPRESSION: 1. No acute intracranial hemorrhage or mass effect. 2. Soft tissue injury and swelling along the anterior calvarium. Medications Medications Current Medications Generic Name Dose Route Start Last Admin Trade Name Freq PRN Reason Stop Dose Admin Acetaminophen 650 mg 07/24/20 01:00 08/02/20 16:55 Acetaminophen 325 Mg Tablet PO 650 mg Q6H PRN Administration pain Al Hydroxide/Mg Hydroxide 30 ml 07/24/20 18:37 08/02/20 10:01 Magnesium Hydrox/Alum Hydrox 30 Ml Oral.Susp PO 30 ml Q6H PRN Administration Heartburn/Nausea Albuterol Sulfate 2 puff 07/24/20 00:20 08/03/20 17:28 Albuterol Sulfate 90 Mcg 8 Gm Inhaler INHALE 2 puff Q4H PRN Administration Wheezing Amoxicillin/Clavulanate Potassium 875 mg 08/02/20 10:00 08/03/20 11:15 Amoxicillin/Potassium Clav 875 Mg Tablet PO 875 mg Q12H [facility] Administration Benzocaine 1 appl 07/29/20 13:57 08/01/20 18:17 Benzocaine 10 % Oral Gel 9 Gm Tube MUCOUS MEM 1 appl QID PRN Administration Mouth Sore Pain Protocol Chlorpromazine HCl 100 mg 07/30/20 11:28 08/03/20 14:17 Chlorpromazine Hcl 25 Mg Tablet PO 100 mg Q4H PRN Administration Agitation Cyproheptadine HCl 4 mg 07/29/20 21:45 08/02/20 20:12 Cyproheptadine Hcl 4 Mg Tablet PO 4 mg BEDTIME [facility] Administration Docusate Sodium 200 mg 07/24/20 09:00 08/03/20 11:15 Docusate Sodium 100 Mg Capsule PO 200 mg BID [facility] Administration Duloxetine HCl 60 mg 07/24/20 09:00 08/03/20 11:16 Duloxetine Hcl 60 Mg Capsule.Dr PO 60 mg DAILY [facility] Administration Gabapentin 600 mg 07/24/20 21:00 08/02/20 20:11 Gabapentin 600 Mg Tablet PO 600 mg BEDTIME [facility] Administration Gabapentin 600 mg 07/30/20 09:00 08/03/20 11:16 Gabapentin 300 Mg Capsule PO Not Given DAILY [facility] Gabapentin 600 mg 07/30/20 12:00 08/03/20 11:32 Gabapentin 300 Mg Capsule PO 600 mg DAILY@1200 [facility] Administration Haloperidol 5 mg 07/24/20 00:20 08/02/20 13:21 Haloperidol 5 Mg Tablet PO 5 mg BID PRN Administration psychosis Haloperidol 2 mg 07/29/20 15:00 08/03/20 14:16 Haloperidol 1 Mg Tablet PO 2 mg TID [facility] Administration Hydroxyzine HCl 50 mg 07/24/20 01:06 08/03/20 03:40 Hydroxyzine Hcl 50 Mg Tablet PO 50 mg TID PRN Administration Anxiety Ibuprofen 600 mg 07/24/20 00:20 07/31/20 00:56 Ibuprofen 600 Mg Tablet PO 600 mg QID PRN Administration severe pain Lidocaine 1 patch 08/01/20 18:35 08/03/20 11:18 Lidocaine 4 % Patch Adh..Patch TRANSDERMA 1 patch DAILY [facility] Administration Protocol [place] Carbonate 600 mg 07/30/20 21:00 08/03/20 11:14 [place] Carbonate Er 300 Mg Tablet.Er PO 600 mg BID [facility] Administration Lorazepam 1 mg 08/02/20 21:46 Lorazepam 1 Mg Tablet PO QID PRN anxiety/restlessness Magnesium Hydroxide 30 ml 07/24/20 18:37 08/02/20 11:59 Milk Of Magnesia 30 Ml Oral.Susp PO 30 ml DAILY PRN Administration Constipation Mirtazapine 7.5 mg 07/29/20 22:00 08/02/20 20:56 Mirtazapine 7.5 Mg Tablet PO 7.5 mg BEDTIME [facility] Administration Naltrexone HCl 50 mg 07/30/20 11:35 08/03/20 11:16 Naltrexone Hcl 50 Mg Tablet PO 50 mg DAILY [facility] Administration Nicotine 21 mg 07/26/20 10:35 08/03/20 11:13 Nicotine 21 Mg Patch.Td24 TRANSDERMA 21 mg DAILY [facility] Administration Olanzapine 20 mg 07/24/20 21:00 08/02/20 20:12 Olanzapine 10 Mg Tablet PO 20 mg BEDTIME [facility] Administration Omeprazole 20 mg 07/24/20 06:30 08/03/20 11:26 Omeprazole 20 Mg Capsule.Dr PO 20 mg DAILY@0630 [facility] Administration Prazosin HCl 5 mg 07/27/20 21:30 08/02/20 20:11 Prazosin Hcl 5 Mg Capsule PO 5 mg BEDTIME [facility] Administration Protocol Prazosin HCl 2 mg 07/30/20 12:00 08/03/20 11:27 Prazosin Hcl 1 Mg Capsule PO 2 mg DAILY@1200 [facility] Administration Protocol Trazodone HCl 50 mg 07/24/20 18:37 Trazodone Hcl 50 Mg Tablet PO BEDTIME PRN Insomnia Allergies Allergies Allergy/AdvReac Type Severity Reaction Status Date / Time carbamazepine [From TEGRETOL] AdvReac Unknown NAUSEA & Verified 06/02/20 19:50 VOMITING topiramate [From TOPAMAX] AdvReac Unknown NAUSEA & Verified 06/02/20 19:50 VOMITING Assessment & Plan Assessment & Plan (1) Recurrent major depression-severe: Status: Acute Code(s): F33.2 - Major depressive disorder, recurrent severe without psychotic features (2) Borderline personality disorder: Status: Acute Code(s): F60.3 - Borderline personality disorder (3) Suicidal ideation: Status: Acute Code(s): R45.851 - Suicidal ideations (4) Injury, self-inflicted: Status: Acute Code(s): Z72.89 - Other problems related to lifestyle (5) Acute post-traumatic stress disorder: Status: Acute Code(s): F43.11 - Post-traumatic stress disorder, acute Assessment and Plan: Continue 1:1 DUE TO SELF HARM PATIENT LESS AGITATED MORE COOPERATIVE MEDICALLY CLEARED FOR ECT will start on Wednesday HAS FAILED MULTIPLE TREATMENTS STABILIZE BETTER WITH ECT Greater than 50% of the session was spent on counseling and/or coordination of care
[2020-08-03] MEDS: Acetaminophen 325 MG TABLET 650 MG PO (18:30)
[2020-08-03] MEDS: HaloperidoL 5 MG TABLET PO (18:30)
[2020-08-03] MEDS: LORazepam 1 MG TABLET PO (18:30)
[2020-08-03 20:43] VITALS: BP 129/84; PULSE 96
[2020-08-03] MEDS: Mirtazapine 7.5 MG TABLET PO (20:43)
[2020-08-03] MEDS: Prazosin HCL 5 MG CAPSULE PO (20:43)
[2020-08-03] MEDS: Gabapentin 600 MG TABLET PO (20:43)
[2020-08-03] MEDS: Cyproheptadine HCl 4 MG TABLET PO (20:44)
[2020-08-03] MEDS: OLANZapine 10 MG TABLET 20 MG PO (20:44)
[2020-08-03] MEDS: Ibuprofen 600 MG TABLET PO (20:47)
[2020-08-04 06:00] VITALS: BP 128/81; PULSE 85; RESP 16; TEMP 36.7; O2SAT 99
[2020-08-04] MEDS: Naltrexone HCl 50 MG TABLET PO (08:44)
[2020-08-04] MEDS: Lithium Carbonate ER 300 MG TABLET.ER 600 MG PO (08:45)
[2020-08-04] MEDS: Amoxicillin/Potassium Clav 875 MG TABLET PO ×2 (08:45→20:12)
[2020-08-04] MEDS: HaloperidoL 1 MG TABLET 2 MG PO ×3 (08:45→20:12)
[2020-08-04] MEDS: Omeprazole 20 MG CAPSULE.DR PO (08:46)
[2020-08-04] MEDS: Docusate Sodium 100 MG CAPSULE 200 MG PO ×2 (08:46→20:13)
[2020-08-04] MEDS: DULoxetine HCl 60 MG CAPSULE.DR PO (08:46)
[2020-08-04] MEDS: Gabapentin 300 MG CAPSULE 600 MG PO ×2 (08:47→12:43)
[2020-08-04] MEDS: Lidocaine 4 % Patch ADH..PATCH 1 PATCH TRANSDERMA (08:48)
[2020-08-04] MEDS: Nicotine 21 MG PATCH.TD24 TRANSDERMA (08:48)
[2020-08-04 12:42] VITALS: BP 128/81; PULSE 85
[2020-08-04] MEDS: Prazosin HCL 1 MG CAPSULE 2 MG PO (12:42)
--- NOTE | 2020-08-04 13:07 | P.PNPSI_ITS ---
Subjective Subjective Date of Service: 08/04/20 Reason For Visit: Depression Interim History: Stella continues to be sad and anxious today;she is on 1:1 for self injury; she calm today and in good behavioral control; spending much time in her bed; PATIENT MEDICAL CLEARED FOR ECT which is scheduled for Wednesday. Review of Systems Review of Systems Gen: no fever Resp: no sob, no cough CV: no chest, no CHEATHAM, no leg edema GI: No n/v, no abd pain Neuro: No confusion Psych: Depressed Mental Status Exam Mental Status Exam Patient Appearance: Disheveled and Unkempt Patient Orientation: Person, Place, Time and Situation Level of Consciousness: Awake Patient Behavior: Appropriate, Cooperative and Anxious Mood Description: Apathetic, Constricted, Flat and Sad Affect Description: Withdrawn, Constricted, Depressed, Blunted, Angry, Flat, Sad and Apprehensive Ability to Follow Directions: Fair Speech Pattern: Clear and Soft-Spoken Thought Content: positive for Perseveration Depressive Symptoms: Increased Anxiety, Diff. Making Decisions, Increased Irritability, Difficulty Sleeping, Sleeping More Than Usual, Feelings of Worthlessness, Hopelessness, Unhappiness, Increased Fatigue, Loss of Energy and Difficulty Concentrating Judgement: Poor Diagnostics Vital Signs (24Hr): Vital Signs - 24 hr 08/03/20 17:09 08/03/20 20:43 08/04/20 06:00 Temperature 98.7 F 98.1 F Pulse Rate 103 H 96 85 Respiratory Rate 16 Blood Pressure 109/78 129/84 128/81 Pulse Oximetry 99 08/04/20 12:42 Temperature Pulse Rate 85 Respiratory Rate Blood Pressure 128/81 Pulse Oximetry Body Mass Index 46.5 Labs Results: 07/23/20 17:09 07/23/20 17:09 Imaging Radiology Impressions: ITS Impressions Head CT 07/27/20 00:00 IMPRESSION: 1. No acute intracranial hemorrhage or mass effect. 2. Soft tissue injury and swelling along the anterior calvarium. Medications Medications Current Medications Generic Name Dose Route Start Last Admin Trade Name Freq PRN Reason Stop Dose Admin Acetaminophen 650 mg 07/24/20 01:00 08/03/20 18:30 Acetaminophen 325 Mg Tablet PO 650 mg Q6H PRN Administration pain Al Hydroxide/Mg Hydroxide 30 ml 07/24/20 18:37 08/02/20 10:01 Magnesium Hydrox/Alum Hydrox 30 Ml Oral.Susp PO 30 ml Q6H PRN Administration Heartburn/Nausea Albuterol Sulfate 2 puff 07/24/20 00:20 08/03/20 17:28 Albuterol Sulfate 90 Mcg 8 Gm Inhaler INHALE 2 puff Q4H PRN Administration Wheezing Amoxicillin/Clavulanate Potassium 875 mg 08/02/20 10:00 08/04/20 08:45 Amoxicillin/Potassium Clav 875 Mg Tablet PO 875 mg Q12H [facility] Administration Benzocaine 1 appl 07/29/20 13:57 08/01/20 18:17 Benzocaine 10 % Oral Gel 9 Gm Tube MUCOUS MEM 1 appl QID PRN Administration Mouth Sore Pain Protocol Chlorpromazine HCl 100 mg 07/30/20 11:28 08/03/20 21:57 Chlorpromazine Hcl 25 Mg Tablet PO 100 mg Q4H PRN Administration Agitation Cyproheptadine HCl 4 mg 07/29/20 21:45 08/03/20 20:44 Cyproheptadine Hcl 4 Mg Tablet PO 4 mg BEDTIME [facility] Administration Docusate Sodium 200 mg 07/24/20 09:00 08/04/20 08:46 Docusate Sodium 100 Mg Capsule PO 200 mg BID [facility] Administration Duloxetine HCl 60 mg 07/24/20 09:00 08/04/20 08:46 Duloxetine Hcl 60 Mg Capsule.Dr PO 60 mg DAILY [facility] Administration Gabapentin 600 mg 07/24/20 21:00 08/03/20 20:43 Gabapentin 600 Mg Tablet PO 600 mg BEDTIME [facility] Administration Gabapentin 600 mg 07/30/20 09:00 08/04/20 08:47 Gabapentin 300 Mg Capsule PO 600 mg DAILY [facility] Administration Gabapentin 600 mg 07/30/20 12:00 08/04/20 12:43 Gabapentin 300 Mg Capsule PO 600 mg DAILY@1200 [facility] Administration Haloperidol 5 mg 07/24/20 00:20 08/03/20 18:30 Haloperidol 5 Mg Tablet PO 5 mg BID PRN Administration psychosis Haloperidol 2 mg 07/29/20 15:00 08/04/20 08:45 Haloperidol 1 Mg Tablet PO 2 mg TID [facility] Administration Hydroxyzine HCl 50 mg 07/24/20 01:06 08/03/20 21:57 Hydroxyzine Hcl 50 Mg Tablet PO 50 mg TID PRN Administration Anxiety Ibuprofen 600 mg 07/24/20 00:20 08/03/20 20:47 Ibuprofen 600 Mg Tablet PO 600 mg QID PRN Administration severe pain Lidocaine 1 patch 08/01/20 18:35 08/04/20 08:48 Lidocaine 4 % Patch Adh..Patch TRANSDERMA 1 patch DAILY [facility] Administration Protocol [place] Carbonate 600 mg 07/30/20 21:00 08/04/20 08:45 [place] Carbonate Er 300 Mg Tablet.Er PO 600 mg BID [facility] Administration Lorazepam 1 mg 08/02/20 21:46 08/03/20 18:30 Lorazepam 1 Mg Tablet PO 1 mg QID PRN Administration anxiety/restlessness Magnesium Hydroxide 30 ml 07/24/20 18:37 08/02/20 11:59 Milk Of Magnesia 30 Ml Oral.Susp PO 30 ml DAILY PRN Administration Constipation Mirtazapine 7.5 mg 07/29/20 22:00 08/03/20 20:43 Mirtazapine 7.5 Mg Tablet PO 7.5 mg BEDTIME [facility] Administration Naltrexone HCl 50 mg 07/30/20 11:35 08/04/20 08:44 Naltrexone Hcl 50 Mg Tablet PO 50 mg DAILY [facility] Administration Nicotine 21 mg 07/26/20 10:35 08/04/20 08:48 Nicotine 21 Mg Patch.Td24 TRANSDERMA 21 mg DAILY [facility] Administration Olanzapine 20 mg 07/24/20 21:00 08/03/20 20:44 Olanzapine 10 Mg Tablet PO 20 mg BEDTIME [facility] Administration Omeprazole 20 mg 07/24/20 06:30 08/04/20 08:46 Omeprazole 20 Mg Capsule.Dr PO 20 mg DAILY@0630 [facility] Administration Prazosin HCl 5 mg 07/27/20 21:30 08/03/20 20:43 Prazosin Hcl 5 Mg Capsule PO 5 mg BEDTIME [facility] Administration Protocol Prazosin HCl 2 mg 07/30/20 12:00 08/04/20 12:42 Prazosin Hcl 1 Mg Capsule PO 2 mg DAILY@1200 [facility] Administration Protocol Trazodone HCl 50 mg 07/24/20 18:37 Trazodone Hcl 50 Mg Tablet PO BEDTIME PRN Insomnia Allergies Allergies Allergy/AdvReac Type Severity Reaction Status Date / Time carbamazepine [From TEGRETOL] AdvReac Unknown NAUSEA & Verified 06/02/20 19:50 VOMITING topiramate [From TOPAMAX] AdvReac Unknown NAUSEA & Verified 06/02/20 19:50 VOMITING Assessment & Plan Assessment & Plan (1) Recurrent major depression-severe: Status: Acute Code(s): F33.2 - Major depressive disorder, recurrent severe without psychotic features (2) Borderline personality disorder: Status: Acute Code(s): F60.3 - Borderline personality disorder (3) Suicidal ideation: Status: Acute Code(s): R45.851 - Suicidal ideations (4) Injury, self-inflicted: Status: Acute Code(s): Z72.89 - Other problems related to lifestyle (5) Acute post-traumatic stress disorder: Status: Acute Code(s): F43.11 - Post-traumatic stress disorder, acute Assessment and Plan: Continue 1:1 DUE TO SELF HARM PATIENT LESS AGITATED MORE COOPERATIVE MEDICALLY CLEARED FOR ECT will start on Wednesday HAS FAILED MULTIPLE TREATMENTS STABILIZE BETTER WITH ECT Greater than 50% of the session was spent on counseling and/or coordination of care
[2020-08-04] MEDS: Albuterol Sulfate 90 MCG 8 GM INHALER 2 PUFF INHALE (14:03)
[2020-08-04] MEDS: LORazepam 1 MG TABLET PO (16:26)
[2020-08-04] MEDS: Sodium Phosphate,Mono-Dibasic 133 ML ENEMA PR (16:40)
[2020-08-04] MEDS: OLANZapine 10 MG TABLET 20 MG PO (20:11)
[2020-08-04 20:12] VITALS: BP 145/67; PULSE 114
[2020-08-04] MEDS: Cyproheptadine HCl 4 MG TABLET PO (20:12)
[2020-08-04] MEDS: Prazosin HCL 5 MG CAPSULE PO (20:12)
[2020-08-04] MEDS: Mirtazapine 7.5 MG TABLET PO (20:13)
[2020-08-04] MEDS: Ibuprofen 600 MG TABLET PO (20:19)
[2020-08-04] MEDS: chlorproMAZINE HCl 25 MG TABLET 100 MG PO (20:19)
[2020-08-04 21:00] VITALS: BP 145/67; PULSE 114; TEMP 36.6
[2020-08-05] VITALS (10 sets, daily range): BP systolic 110–140; BP diastolic 37–85; PULSE 88–99; RESP 16–18; TEMP 36.2–37.4; O2SAT 96–100; BMI 48.4
--- NOTE | 2020-08-05 08:17 | HO.ANESPROP2 ---
HPI - Anesthesia Eval Consult details Narrative: 35 yo female patient with major depression here for ECT COUNTS INCLUDE 234 BEDS AT THE [facility] Past Medical History Medical History Adjustment disorder Anxiety Asthma Borderline personality disorder Depression GERD (gastroesophageal reflux disease) Increased BMI Intentional self-harm PTSD (post-traumatic stress disorder) Recurrent major depression-severe Schizoaffective disorder Self-harming behavior Suicidal ideation Functional capacity: independent ambulation Family History Family history of problems with anesthesia: No Surgical History History of Problems with Anesthesia: No Social History Social History Household Members: Other Household Members Other:: care home Housing: House Do you presently have visiting nurse or other home services: No Alcohol intake: unknown Smoking Status: Current every day smoker Tobacco Type: Cigarette Packs Per Day: 0.5 Cigarettes Per Day: 10.0 Years Smoked: 15 Smoked in Last 30 Days: Yes Patient Interested in Nicotine Replacement: Yes Patient Given Instructions on How to Stop Smoking: No Second Hand Smoke Exposure: No Use of substances other than those prescribed or required for medical reasons: Yes Substance Use Type: Marijuana Substance Use Frequency: Daily Last Used Substance: Days (ago) Currently Displaying Signs/Symptoms of Drug Intoxication Withdrawal: No Any prior treatment program specific to substance use: No Have you been hit, kicked, punched, or otherwise hurt by someone within the past year? If so, by whom?: No Is there a partner from a previous relationship who is making you feel unsafe now?: No Are you made to feel afraid or neglected: No Spiritual Healthcare Practices: none Voodoo Healthcare Practices: none Cultural Healthcare Practices: none Advance Directives: No Advance Directives Information Provided: Yes Suicidal Behavior: Self-injurious behavior Access to Firearms: No Do you have thoughts of harming others: None Do you have a plan to hurt others: No Plan Recently lost weight without trying: Unsure service: No Meds Allergies Allergy/AdvReac Type Severity Reaction Status Date / Time carbamazepine [From TEGRETOL] AdvReac Unknown NAUSEA & Verified 06/02/20 19:50 VOMITING topiramate [From TOPAMAX] AdvReac Unknown NAUSEA & Verified 06/02/20 19:50 VOMITING Home Medications Medication Instructions Recorded Confirmed Type albuterol sulfate 2 puff INHALATION Q4-6H PRN 05/15/20 07/23/20 History cetirizine 10 mg PO DAILY 05/15/20 07/23/20 History chlorpromazine 150 mg PO Q4H PRN 05/15/20 07/23/20 History docusate sodium 200 mg PO BID 05/15/20 07/23/20 History duloxetine 60 mg PO DAILY 05/15/20 07/23/20 History gabapentin 600 mg PO BEDTIME 05/15/20 07/23/20 History haloperidol decanoate 100 mg IM Q4W 05/15/20 07/03/20 History hydroxyzine pamoate 50 mg PO TID PRN 05/15/20 07/23/20 History lithium carbonate 600 mg PO BEDTIME 05/15/20 07/23/20 History olanzapine 20 mg PO BEDTIME 05/15/20 07/23/20 History omeprazole 20 mg PO DAILY@0630 05/15/20 07/23/20 History prazosin 5 mg PO BEDTIME 05/15/20 07/23/20 History acetaminophen 650 mg PO Q6H PRN 06/02/20 07/23/20 History trazodone 100 mg PO BEDTIME 06/02/20 07/23/20 History zolpidem 12.5 mg PO BEDTIME 06/02/20 07/23/20 History haloperidol 1 tab PO BID PRN 06/24/20 07/23/20 History ibuprofen 1 tab PO QID PRN 06/24/20 07/23/20 History lorazepam 1 tab PO QID PRN 06/24/20 07/23/20 History quetiapine 400 mg PO BEDTIME 06/24/20 07/23/20 History gabapentin 400 mg PO QAM 07/03/20 07/23/20 History gabapentin 400 mg PO QNOON 07/03/20 07/23/20 History Exam Exam Date and Time: August 05, 2020816 Height,Weight and Vital Signs: Vital Signs Temp Pulse Resp BP Pulse Ox 08/05/20 08:10 97.2 F 92 18 132/84 98 08/05/20 05:40 97.3 F 88 18 110/57 L 96 08/04/20 21:00 97.8 F 114 H 145/67 H 08/04/20 20:12 114 H 145/67 H 08/04/20 12:42 85 128/81 Height 5 ft 2 in Weight 115.6 kg Last Vital Signs Temp 97.3 F 08/05/20 05:40 Pulse 88 08/05/20 05:40 Resp 18 08/05/20 05:40 BP 110/57 L 08/05/20 05:40 Pulse Ox 96 08/05/20 05:40 Pertinent Lab Results Pertinent Lab Results: Laboratory Tests 07/23/20 07/23/20 07/23/20 16:55 16:55 17:09 WBC 7.7 RBC 3.95 L Hgb 10.9 L Hct 35.1 L MCV 88.9 MCH 27.6 MCHC 31.1 RDW 16.4 H Plt Count 294 MPV 10.3 Immature Gran % (Auto) 0.3 Neut % (Auto) 56.8 Lymph % (Auto) 37.1 [place] % (Auto) 5.3 Eos % (Auto) 0.1 Baso % (Auto) 0.4 Lymph # (Auto) 2.9 [place] # (Auto) 0.4 Eos # (Auto) 0.0 Baso # (Auto) 0.0 Abs Immat Gran (auto) 0.02 Absolute Neuts (auto) 4.4 Absolute Nucleated RBC 0.000 Nucleated RBC % (auto) 0.0 Sodium Potassium Chloride Carbon Dioxide Anion Gap BUN Creatinine Estim Creat Clear Calc Estimated GFR Random Glucose Calcium Total Bilirubin AST ALT Alkaline Phosphatase Total Protein Albumin Urine Color Urine Appearance Urine pH Ur Specific [place] Urine Protein Urine Glucose (UA) Urine Ketones Urine Blood Urine Nitrite Ur Leukocyte Esterase Urine RBC Urine WBC Ur Squamous Epith Cells Urine Bacteria Urine Test NEGATIVE Salicylates Urine Opiates Screen Not Detected Acetaminophen Ur Barbiturates Screen Not Detected Ur Phencyclidine Scrn Not Detected Ur Amphetamines Screen Not Detected U Benzodiazepines Scrn Not Detected [place] Urine Cocaine Screen Not Detected U Marijuana (THC) Screen POSITIVE H Ethyl Alcohol COVID-19 (RAFAL) COVID-19 Clin Com 07/23/20 07/23/20 07/24/20 17:09 17:09 07:51 WBC RBC Hgb Hct MCV MCH MCHC RDW Plt Count MPV Immature Gran % (Auto) Neut % (Auto) Lymph % (Auto) [place] % (Auto) Eos % (Auto) Baso % (Auto) Lymph # (Auto) [place] # (Auto) Eos # (Auto) Baso # (Auto) Abs Immat Gran (auto) Absolute Neuts (auto) Absolute Nucleated RBC Nucleated RBC % (auto) Sodium 138 Potassium 4.6 Chloride 107 Carbon Dioxide 24 Anion Gap 12 BUN 7 L Creatinine 0.79 Estim Creat Clear Calc 133.8 Estimated GFR > 60 Random Glucose 84 Calcium 8.6 Total Bilirubin 0.2 AST 12 ALT 14 Alkaline Phosphatase 73 Total Protein 6.9 Albumin 4.3 Urine Color Urine Appearance Urine pH Ur Specific [place] Urine Protein Urine Glucose (UA) Urine Ketones Urine Blood Urine Nitrite Ur Leukocyte Esterase Urine RBC Urine WBC Ur Squamous Epith Cells Urine Bacteria Urine Test Salicylates < 5.0 L Urine Opiates Screen Acetaminophen < 1 Ur Barbiturates Screen Ur Phencyclidine Scrn Ur Amphetamines Screen U Benzodiazepines Scrn [place] Urine Cocaine Screen U Marijuana (THC) Screen Ethyl Alcohol < 10 COVID-19 (RAFAL) Negative COVID-19 Clin Com See Note 07/27/20 08/01/20 08:03 21:18 WBC RBC Hgb Hct MCV MCH MCHC RDW Plt Count MPV Immature Gran % (Auto) Neut % (Auto) Lymph % (Auto) [place] % (Auto) Eos % (Auto) Baso % (Auto) Lymph # (Auto) [place] # (Auto) Eos # (Auto) Baso # (Auto) Abs Immat Gran (auto) Absolute Neuts (auto) Absolute Nucleated RBC Nucleated RBC % (auto) Sodium Potassium Chloride Carbon Dioxide Anion Gap BUN Creatinine Estim Creat Clear Calc Estimated GFR Random Glucose Calcium Total Bilirubin AST ALT Alkaline Phosphatase Total Protein Albumin Urine Color STRAW Urine Appearance CLEAR Urine pH 6.0 Ur Specific [place] 1.015 Urine Protein NEG Urine Glucose (UA) NEG Urine Ketones NEG Urine Blood TRACE Urine Nitrite NEG Ur Leukocyte Esterase NEG Urine RBC 1-4 Urine WBC 0-2 Ur Squamous Epith Cells 2+ Urine Bacteria TRACE Urine Test Salicylates Urine Opiates Screen Acetaminophen Ur Barbiturates Screen Ur Phencyclidine Scrn Ur Amphetamines Screen U Benzodiazepines Scrn [place] 0.54 L Urine Cocaine Screen U Marijuana (THC) Screen Ethyl Alcohol COVID-19 (RAFAL) COVID-19 Clin Com Airway Mallampati Class: III TM Dist: >3cm Neck ROM: Full Loose/Missing/Broken Teeth: Yes (Many missing. None loose) Heart: RRR Lungs: CTAB Assessment and Plan Assessment Anesthesia Assessment: Anesthesia Plan Discussed and Chart Reviewed Final Anesthetic Review NPO: Yes ASA Class: III Final Preanesthetic Review: No Changes in Pt Med Stat, Meds/Allgs Chart Reviewed, Consent Obtained/Reviewed and Anes Risks/Benef Reviewed Patient Risk: Intermediate Procedure Risk: Intermediate Assessment/Block/Sedation in SS: Assess/Block/Sedation-SS Anesthetic Plan Anesthetic Plan: GA Disposition: Standard PACU
--- NOTE | 2020-08-05 08:46 | MHC.SHP ---
Pre-Procedural Eval Section A The patient is an INPATIENT: Yes Changes since office visit: Yes Changes in Medication and Yes Patient answered all questions; No Cold of Flu in the past 2 weeks and No New Medical Problems The History & Physical has been completed within 30 days and I have reviewed it.: Yes Section B Chief Complaint: Depression Allergies: Allergies Allergy/AdvReac Type Severity Reaction Status Date / Time carbamazepine [From TEGRETOL] AdvReac Unknown NAUSEA & Verified 06/02/20 19:50 VOMITING topiramate [From TOPAMAX] AdvReac Unknown NAUSEA & Verified 06/02/20 19:50 VOMITING Plan I have reviewed the history and physical and performed a pertinent physical examination on my patient. No changes have occurred unless specified.
--- NOTE | 2020-08-05 08:46 | HO.ECTPROC ---
ECT Procedure Note Diagnosis/Treatment Diagnosis: Major Depressive Disorder Current Treatment Number: 1 Treatment: Series Interval Clinical Notes: patient depressed withdrawn PTSD history of good response to ECT ECT Settings Device: THYMATRON DGx Electrode Placement: Bitemporal Program/Pulse Width: 0.50 Energy Percent: 100 Seizure Duration By EEG (in seconds): 31 Medications Administration General Anesthetic: Etomidate (16) Muscle Relaxant: Succinylcholine (100) Ancillary Medications Analgesics: Torodol - Pre ECT Anti-emetics: Zofran - Pre ECT Miscillaneous Medications: Propofol (30) and Flumazenil Airway Management Airway Management: Bag Mask Ventilation Treatment Recommendations No Changes Recommended: No change Notes: transient htn Pt Tolerated Procedure w/o Issue: Yes
--- NOTE | 2020-08-05 09:50 | HO.POSTANES ---
Post Anesthesia Evaluation Post Anesthesia Evaluation Vital Signs: Vital Signs Temp Pulse Resp BP Pulse Ox 08/05/20 09:47 92 18 111/69 98 08/05/20 09:32 96 16 114/72 98 08/05/20 09:27 98 18 123/73 98 08/05/20 09:22 99 18 130/37 L 99 08/05/20 09:17 99.3 F 94 17 140/85 H 100 08/05/20 08:10 97.2 F 92 18 132/84 98 08/05/20 05:40 97.3 F 88 18 110/57 L 96 Anesthesia: General Mental Status: Awake Pain Control: Satisfactory Nausea/Vomiting: None Hydration: Adequate Anesthesia-Related Issues: No Anes. Related Issues
[2020-08-05] MEDS: Gabapentin 300 MG CAPSULE 600 MG PO ×2 (10:54→10:57)
[2020-08-05] MEDS: Acetaminophen 325 MG TABLET 650 MG PO (10:55)
[2020-08-05] MEDS: Amoxicillin/Potassium Clav 875 MG TABLET PO ×2 (10:56→21:16)
[2020-08-05] MEDS: Naltrexone HCl 50 MG TABLET PO (10:57)
[2020-08-05] MEDS: Lithium Carbonate ER 300 MG TABLET.ER 600 MG PO (10:58)
[2020-08-05] MEDS: HaloperidoL 1 MG TABLET 2 MG PO ×3 (10:58→21:16)
[2020-08-05] MEDS: DULoxetine HCl 60 MG CAPSULE.DR PO (10:59)
[2020-08-05] MEDS: Docusate Sodium 100 MG CAPSULE 200 MG PO ×2 (10:59→21:14)
[2020-08-05] MEDS: Prazosin HCL 1 MG CAPSULE 2 MG PO (10:59)
[2020-08-05] MEDS: Lidocaine 4 % Patch ADH..PATCH 1 PATCH TRANSDERMA (11:00)
[2020-08-05] MEDS: Nicotine 21 MG PATCH.TD24 TRANSDERMA (11:00)
[2020-08-05] MEDS: LORazepam 1 MG TABLET PO (14:43)
[2020-08-05] MEDS: Ibuprofen 600 MG TABLET PO (15:53)
[2020-08-05] MEDS: Prazosin HCL 5 MG CAPSULE PO (21:14)
[2020-08-05] MEDS: OLANZapine 10 MG TABLET 20 MG PO (21:15)
[2020-08-05] MEDS: Cyproheptadine HCl 4 MG TABLET PO (21:16)
[2020-08-05] MEDS: Gabapentin 600 MG TABLET PO (21:16)
[2020-08-05] MEDS: Mirtazapine 7.5 MG TABLET PO (21:17)
--- NOTE | 2020-08-05 23:54 | HO.PSYCHPN ---
Subjective Subjective Date of Service: 08/06/20 Reason For Visit: Depression Interim History: patient out of bed more cooperative ECT scheduled for tomorrow Medication Compliance: Yes Side effects from medications: Yes Mental Status Exam Mental Status Exam Patient Appearance: Disheveled and Unkempt Patient Orientation: Person, Place, Time and Situation Level of Consciousness: Awake Patient Behavior: Appropriate, Cooperative and Anxious Mood Description: Apathetic, Constricted, Flat and Sad Affect Description: Withdrawn, Constricted, Depressed, Blunted, Angry, Flat, Sad and Apprehensive Ability to Follow Directions: Fair Speech Pattern: Clear and Soft-Spoken Thought Content: positive for Perseveration Depressive Symptoms: Increased Anxiety, Diff. Making Decisions, Increased Irritability, Difficulty Sleeping, Sleeping More Than Usual, Feelings of Worthlessness, Hopelessness, Unhappiness, Increased Fatigue, Loss of Energy and Difficulty Concentrating Judgement: Poor Diagnostics Vital Signs (24Hr): Vital Signs - 24 hr 08/05/20 05:40 08/05/20 08:10 08/05/20 09:17 Temperature 97.3 F 97.2 F 99.3 F Pulse Rate 88 92 94 Respiratory Rate 18 18 17 Blood Pressure 110/57 L 132/84 140/85 H Pulse Oximetry 96 98 100 08/05/20 09:22 08/05/20 09:27 08/05/20 09:32 Temperature Pulse Rate 99 98 96 Respiratory Rate 18 18 16 Blood Pressure 130/37 L 123/73 114/72 Pulse Oximetry 99 98 98 08/05/20 09:47 08/05/20 10:59 08/05/20 19:30 Temperature 97.4 F Pulse Rate 92 92 98 Respiratory Rate 18 Blood Pressure 111/69 111/69 127/83 Pulse Oximetry 98 08/05/20 21:14 Temperature Pulse Rate 98 Respiratory Rate Blood Pressure 127/83 Pulse Oximetry Body Mass Index 48.4 Labs Results: 07/23/20 17:09 07/23/20 17:09 Imaging Radiology Impressions: ITS Impressions Head CT 07/27/20 00:00 IMPRESSION: 1. No acute intracranial hemorrhage or mass effect. 2. Soft tissue injury and swelling along the anterior calvarium. Medications Medications Current Medications Generic Name Dose Route Start Last Admin Trade Name Freq PRN Reason Stop Dose Admin Acetaminophen 650 mg 07/24/20 01:00 08/05/20 10:55 Acetaminophen 325 Mg Tablet PO 650 mg Q6H PRN Administration pain Acetaminophen 650 mg 08/05/20 08:13 Acetaminophen 325 Mg Tablet PO ONCE PRN Pain, Mild (Pain Scale 1-3) Al Hydroxide/Mg Hydroxide 30 ml 07/24/20 18:37 08/02/20 10:01 Magnesium Hydrox/Alum Hydrox 30 Ml Oral.Susp PO 30 ml Q6H PRN Administration Heartburn/Nausea Albuterol Sulfate 2 puff 07/24/20 00:20 08/04/20 14:03 Albuterol Sulfate 90 Mcg 8 Gm Inhaler INHALE 2 puff Q4H PRN Administration Wheezing Amoxicillin/Clavulanate Potassium 875 mg 08/02/20 10:00 08/05/20 21:16 Amoxicillin/Potassium Clav 875 Mg Tablet PO 875 mg Q12H SULEIMAN Administration Benzocaine 1 appl 07/29/20 13:57 08/01/20 18:17 Benzocaine 10 % Oral Gel 9 Gm Tube MUCOUS MEM 1 appl QID PRN Administration Mouth Sore Pain Protocol Chlorpromazine HCl 100 mg 07/30/20 11:28 08/04/20 20:19 Chlorpromazine Hcl 25 Mg Tablet PO 100 mg Q4H PRN Administration Agitation Cyproheptadine HCl 4 mg 07/29/20 21:45 08/05/20 21:16 Cyproheptadine Hcl 4 Mg Tablet PO 4 mg BEDTIME SULEIMAN Administration Docusate Sodium 200 mg 07/24/20 09:00 08/05/20 21:14 Docusate Sodium 100 Mg Capsule PO 200 mg BID SULEIMAN Administration Duloxetine HCl 60 mg 07/24/20 09:00 08/05/20 10:59 Duloxetine Hcl 60 Mg Capsule.Dr PO 60 mg DAILY SULEIMAN Administration Gabapentin 600 mg 07/24/20 21:00 08/05/20 21:16 Gabapentin 600 Mg Tablet PO 600 mg BEDTIME SULEIMAN Administration Gabapentin 600 mg 07/30/20 09:00 08/05/20 10:54 Gabapentin 300 Mg Capsule PO 600 mg DAILY SULEIMAN Administration Gabapentin 600 mg 07/30/20 12:00 08/05/20 10:57 Gabapentin 300 Mg Capsule PO 600 mg DAILY@1200 SULEIMAN Administration Haloperidol 5 mg 07/24/20 00:20 08/03/20 18:30 Haloperidol 5 Mg Tablet PO 5 mg BID PRN Administration psychosis Haloperidol 2 mg 07/29/20 15:00 08/05/20 21:16 Haloperidol 1 Mg Tablet PO 2 mg TID SULEIMAN Administration Hydroxyzine HCl 50 mg 07/24/20 01:06 08/03/20 21:57 Hydroxyzine Hcl 50 Mg Tablet PO 50 mg TID PRN Administration Anxiety Lactated Ringer's 1,000 mls @ 50 mls/hr 08/05/20 08:15 08/05/20 12:40 Lr IVCONT Not Given .Q20H SULEIMAN Ibuprofen 600 mg 07/24/20 00:20 08/05/20 15:53 Ibuprofen 600 Mg Tablet PO 600 mg QID PRN Administration severe pain Lidocaine 1 patch 08/01/20 18:35 08/05/20 11:00 Lidocaine 4 % Patch Adh..Patch TRANSDERMA 1 patch DAILY SULEIMAN Administration Protocol [place] Carbonate 600 mg 08/05/20 09:00 08/05/20 10:58 [place] Carbonate Er 300 Mg Tablet.Er PO 600 mg DAILY SULEIMAN Administration Lorazepam 1 mg 08/02/20 21:46 08/05/20 14:43 Lorazepam 1 Mg Tablet PO 1 mg QID PRN Administration anxiety/restlessness Magnesium Hydroxide 30 ml 07/24/20 18:37 08/02/20 11:59 Milk Of Magnesia 30 Ml Oral.Susp PO 30 ml DAILY PRN Administration Constipation Mirtazapine 7.5 mg 07/29/20 22:00 08/05/20 21:17 Mirtazapine 7.5 Mg Tablet PO 7.5 mg BEDTIME SULEIMAN Administration Naltrexone HCl 50 mg 07/30/20 11:35 08/05/20 10:57 Naltrexone Hcl 50 Mg Tablet PO 50 mg DAILY SULEIMAN Administration Nicotine 21 mg 07/26/20 10:35 08/05/20 11:00 Nicotine 21 Mg Patch.Td24 TRANSDERMA 21 mg DAILY SULEIMAN Administration Olanzapine 20 mg 07/24/20 21:00 08/05/20 21:15 Olanzapine 10 Mg Tablet PO 20 mg BEDTIME SULEIMAN Administration Omeprazole 20 mg 07/24/20 06:30 08/05/20 12:40 Omeprazole 20 Mg Capsule.Dr PO Not Given DAILY@0630 SULEIMAN Ondansetron HCl 4 mg 08/05/20 08:15 Ondansetron Hcl 4 Mg/2 Ml Vial IVPUSH ONCE PRN Nausea and Vomiting Prazosin HCl 5 mg 07/27/20 21:30 08/05/20 21:14 Prazosin Hcl 5 Mg Capsule PO 5 mg BEDTIME SULEIMAN Administration Protocol Prazosin HCl 2 mg 07/30/20 12:00 08/05/20 10:59 Prazosin Hcl 1 Mg Capsule PO 2 mg DAILY@1200 SULEIMAN Administration Protocol Sodium Biphosphate/Sodium Phosphate 133 ml 08/04/20 16:30 08/04/20 16:40 Sodium Phosphate,[place]-Dibasic 133 Ml Enema [place] 133 ml ONCE PRN Administration Constipation Trazodone HCl 50 mg 07/24/20 18:37 Trazodone Hcl 50 Mg Tablet PO BEDTIME PRN Insomnia Allergies Allergies Allergy/AdvReac Type Severity Reaction Status Date / Time carbamazepine [From TEGRETOL] AdvReac Unknown NAUSEA & Verified 06/02/20 19:50 VOMITING topiramate [From TOPAMAX] AdvReac Unknown NAUSEA & Verified 06/02/20 19:50 VOMITING Assessment & Plan Assessment & Plan (1) Recurrent major depression-severe: Status: Acute Code(s): F33.2 - Major depressive disorder, recurrent severe without psychotic features (2) Borderline personality disorder: Status: Acute Code(s): F60.3 - Borderline personality disorder (3) Suicidal ideation: Status: Acute Code(s): R45.851 - Suicidal ideations (4) Acute post-traumatic stress disorder: Status: Acute Code(s): F43.11 - Post-traumatic stress disorder, acute Assessment and Plan: continue present treatment plan low-dose Haldol see if we can taper olanzapine continue ECT discharge planning Greater than 50% of the session was spent on counseling and/or coordination of care
[2020-08-06] MEDS: chlorproMAZINE HCl 25 MG TABLET 100 MG PO ×2 (01:59→16:09)
[2020-08-06] MEDS: Ibuprofen 600 MG TABLET PO ×2 (01:59→16:09)
[2020-08-06] MEDS: Docusate Sodium 100 MG CAPSULE 200 MG PO ×2 (09:09→21:07)
[2020-08-06] MEDS: DULoxetine HCl 60 MG CAPSULE.DR PO (09:09)
[2020-08-06] MEDS: Omeprazole 20 MG CAPSULE.DR PO (09:09)
[2020-08-06] MEDS: HaloperidoL 1 MG TABLET 2 MG PO ×3 (09:12→21:08)
[2020-08-06] MEDS: Naltrexone HCl 50 MG TABLET PO (09:13)
[2020-08-06] MEDS: Lithium Carbonate ER 300 MG TABLET.ER 600 MG PO (09:13)
[2020-08-06] MEDS: Amoxicillin/Potassium Clav 875 MG TABLET PO ×2 (09:13→21:08)
[2020-08-06] MEDS: Gabapentin 300 MG CAPSULE 600 MG PO ×2 (09:14→11:13)
[2020-08-06] MEDS: Nicotine 21 MG PATCH.TD24 TRANSDERMA (09:18)
[2020-08-06] MEDS: Lidocaine 4 % Patch ADH..PATCH 1 PATCH TRANSDERMA (09:18)
[2020-08-06 11:11] VITALS: BP 111/71; PULSE 103
[2020-08-06] MEDS: Prazosin HCL 1 MG CAPSULE 2 MG PO (11:11)
[2020-08-06 11:17] VITALS: RESP 20; TEMP 36.4; O2SAT 98
[2020-08-06] MEDS: LORazepam 1 MG TABLET PO ×2 (16:09→19:11)
[2020-08-06] MEDS: Acetaminophen 325 MG TABLET 650 MG PO (17:17)
[2020-08-06] MEDS: HaloperidoL 5 MG TABLET PO (19:11)
[2020-08-06] MEDS: hydrOXYzine HCL 50 MG TABLET PO (19:11)
[2020-08-06 21:00] VITALS: BP 129/86; PULSE 108; TEMP 36.7
[2020-08-06 21:07] VITALS: BP 129/86; PULSE 108
[2020-08-06] MEDS: Prazosin HCL 5 MG CAPSULE PO (21:07)
[2020-08-06] MEDS: OLANZapine 10 MG TABLET 20 MG PO (21:08)
[2020-08-06] MEDS: Cyproheptadine HCl 4 MG TABLET PO (21:08)
[2020-08-06] MEDS: Mirtazapine 7.5 MG TABLET PO (21:08)
[2020-08-06] MEDS: traZODone HCL 50 MG TABLET PO (22:50)
[2020-08-07] VITALS (13 sets, daily range): BP systolic 106–171; BP diastolic 62–93; PULSE 85–100; RESP 16–20; TEMP 36–36.8; O2SAT 93–99; BMI 48.4
--- NOTE | 2020-08-07 07:19 | HO.ECTPROC ---
ECT Procedure Note Diagnosis/Treatment Diagnosis: Major Depressive Disorder Previous ECT Date: 08/05/20 Current Treatment Number: 2 Treatment: Series Interval Clinical Notes: pt doing better tolerated ect ECT Settings Device: THYMATRON DGx Electrode Placement: Bitemporal Program/Pulse Width: 0.50 Energy Percent: 100 Seizure Duration By EEG (in seconds): 14 Medications Administration General Anesthetic: Etomidate (16) and Propofol (30) Muscle Relaxant: Succinylcholine (100) Ancillary Medications Analgesics: Torodol - Pre ECT Anti-emetics: Zofran - Pre ECT Miscillaneous Medications: Flumazenil Treatment Recommendations No Changes Recommended: No change (lower etomidate 14 mg) Pt Tolerated Procedure w/o Issue: Yes
--- NOTE | 2020-08-07 08:04 | HO.ANESPROP2 ---
FORMERLY [facility] Past Medical History Medical History Adjustment disorder Anxiety Asthma Borderline personality disorder Depression GERD (gastroesophageal reflux disease) Increased BMI Intentional self-harm PTSD (post-traumatic stress disorder) Recurrent major depression-severe Schizoaffective disorder Self-harming behavior Suicidal ideation Functional capacity: independent ambulation Social History Social History Household Members: Other Household Members Other:: senior living Housing: House Do you presently have visiting nurse or other home services: No Alcohol intake: unknown Smoking Status: Current every day smoker Tobacco Type: Cigarette Packs Per Day: 0.5 Cigarettes Per Day: 10.0 Years Smoked: 15 Smoked in Last 30 Days: Yes Patient Interested in Nicotine Replacement: Yes Patient Given Instructions on How to Stop Smoking: No Second Hand Smoke Exposure: No Use of substances other than those prescribed or required for medical reasons: Yes Substance Use Type: Marijuana Substance Use Frequency: Daily Last Used Substance: Days (ago) Currently Displaying Signs/Symptoms of Drug Intoxication Withdrawal: No Any prior treatment program specific to substance use: No Have you been hit, kicked, punched, or otherwise hurt by someone within the past year? If so, by whom?: No Is there a partner from a previous relationship who is making you feel unsafe now?: No Are you made to feel afraid or neglected: No Spiritual Healthcare Practices: none Amish Healthcare Practices: none Cultural Healthcare Practices: none Advance Directives: No Advance Directives Information Provided: Yes Suicidal Behavior: Self-injurious behavior Access to Firearms: No Do you have thoughts of harming others: None Do you have a plan to hurt others: No Plan Recently lost weight without trying: Unsure service: No Meds Allergies Allergy/AdvReac Type Severity Reaction Status Date / Time carbamazepine [From TEGRETOL] AdvReac Unknown NAUSEA & Verified 06/02/20 19:50 VOMITING topiramate [From TOPAMAX] AdvReac Unknown NAUSEA & Verified 06/02/20 19:50 VOMITING Home Medications Medication Instructions Recorded Confirmed Type albuterol sulfate 2 puff INHALATION Q4-6H PRN 05/15/20 07/23/20 History cetirizine 10 mg PO DAILY 05/15/20 07/23/20 History chlorpromazine 150 mg PO Q4H PRN 05/15/20 07/23/20 History docusate sodium 200 mg PO BID 05/15/20 07/23/20 History duloxetine 60 mg PO DAILY 05/15/20 07/23/20 History gabapentin 600 mg PO BEDTIME 05/15/20 07/23/20 History haloperidol decanoate 100 mg IM Q4W 05/15/20 07/03/20 History hydroxyzine pamoate 50 mg PO TID PRN 05/15/20 07/23/20 History lithium carbonate 600 mg PO BEDTIME 05/15/20 07/23/20 History olanzapine 20 mg PO BEDTIME 05/15/20 07/23/20 History omeprazole 20 mg PO DAILY@0630 05/15/20 07/23/20 History prazosin 5 mg PO BEDTIME 05/15/20 07/23/20 History acetaminophen 650 mg PO Q6H PRN 06/02/20 07/23/20 History trazodone 100 mg PO BEDTIME 06/02/20 07/23/20 History zolpidem 12.5 mg PO BEDTIME 06/02/20 07/23/20 History haloperidol 1 tab PO BID PRN 06/24/20 07/23/20 History ibuprofen 1 tab PO QID PRN 06/24/20 07/23/20 History lorazepam 1 tab PO QID PRN 06/24/20 07/23/20 History quetiapine 400 mg PO BEDTIME 06/24/20 07/23/20 History gabapentin 400 mg PO QAM 07/03/20 07/23/20 History gabapentin 400 mg PO QNOON 07/03/20 07/23/20 History Exam Exam Date and Time: August 07, 2020 0804 Height,Weight and Vital Signs: Height 4 ft 11 in Weight 108.862 kg Last Vital Signs Temp 98.2 F 08/07/20 07:49 Pulse 99 08/07/20 07:49 Resp 16 08/07/20 07:49 BP 117/67 08/07/20 07:49 Pulse Ox 95 08/07/20 07:49 Pertinent Lab Results Pertinent Lab Results: Laboratory Tests 07/23/20 07/23/20 07/23/20 16:55 16:55 17:09 WBC 7.7 RBC 3.95 L Hgb 10.9 L Hct 35.1 L MCV 88.9 MCH 27.6 MCHC 31.1 RDW 16.4 H Plt Count 294 MPV 10.3 Immature Gran % (Auto) 0.3 Neut % (Auto) 56.8 Lymph % (Auto) 37.1 [place] % (Auto) 5.3 Eos % (Auto) 0.1 Baso % (Auto) 0.4 Lymph # (Auto) 2.9 [place] # (Auto) 0.4 Eos # (Auto) 0.0 Baso # (Auto) 0.0 Abs Immat Gran (auto) 0.02 Absolute Neuts (auto) 4.4 Absolute Nucleated RBC 0.000 Nucleated RBC % (auto) 0.0 Sodium Potassium Chloride Carbon Dioxide Anion Gap BUN Creatinine Estim Creat Clear Calc Estimated GFR Random Glucose Calcium Total Bilirubin AST ALT Alkaline Phosphatase Total Protein Albumin Urine Color Urine Appearance Urine pH Ur Specific [place] Urine Protein Urine Glucose (UA) Urine Ketones Urine Blood Urine Nitrite Ur Leukocyte Esterase Urine RBC Urine WBC Ur Squamous Epith Cells Urine Bacteria Urine Test NEGATIVE Salicylates Urine Opiates Screen Not Detected Acetaminophen Ur Barbiturates Screen Not Detected Ur Phencyclidine Scrn Not Detected Ur Amphetamines Screen Not Detected U Benzodiazepines Scrn Not Detected [place] Urine Cocaine Screen Not Detected U Marijuana (THC) Screen POSITIVE H Ethyl Alcohol COVID-19 (RAFAL) COVID-19 Clin Com 07/23/20 07/23/20 07/24/20 17:09 17:09 07:51 WBC RBC Hgb Hct MCV MCH MCHC RDW Plt Count MPV Immature Gran % (Auto) Neut % (Auto) Lymph % (Auto) [place] % (Auto) Eos % (Auto) Baso % (Auto) Lymph # (Auto) [place] # (Auto) Eos # (Auto) Baso # (Auto) Abs Immat Gran (auto) Absolute Neuts (auto) Absolute Nucleated RBC Nucleated RBC % (auto) Sodium 138 Potassium 4.6 Chloride 107 Carbon Dioxide 24 Anion Gap 12 BUN 7 L Creatinine 0.79 Estim Creat Clear Calc 133.8 Estimated GFR > 60 Random Glucose 84 Calcium 8.6 Total Bilirubin 0.2 AST 12 ALT 14 Alkaline Phosphatase 73 Total Protein 6.9 Albumin 4.3 Urine Color Urine Appearance Urine pH Ur Specific [place] Urine Protein Urine Glucose (UA) Urine Ketones Urine Blood Urine Nitrite Ur Leukocyte Esterase Urine RBC Urine WBC Ur Squamous Epith Cells Urine Bacteria Urine Test Salicylates < 5.0 L Urine Opiates Screen Acetaminophen < 1 Ur Barbiturates Screen Ur Phencyclidine Scrn Ur Amphetamines Screen U Benzodiazepines Scrn [place] Urine Cocaine Screen U Marijuana (THC) Screen Ethyl Alcohol < 10 COVID-19 (RAFAL) Negative COVID-19 Clin Com See Note 07/27/20 08/01/20 08:03 21:18 WBC RBC Hgb Hct MCV MCH MCHC RDW Plt Count MPV Immature Gran % (Auto) Neut % (Auto) Lymph % (Auto) [place] % (Auto) Eos % (Auto) Baso % (Auto) Lymph # (Auto) [place] # (Auto) Eos # (Auto) Baso # (Auto) Abs Immat Gran (auto) Absolute Neuts (auto) Absolute Nucleated RBC Nucleated RBC % (auto) Sodium Potassium Chloride Carbon Dioxide Anion Gap BUN Creatinine Estim Creat Clear Calc Estimated GFR Random Glucose Calcium Total Bilirubin AST ALT Alkaline Phosphatase Total Protein Albumin Urine Color STRAW Urine Appearance CLEAR Urine pH 6.0 Ur Specific [place] 1.015 Urine Protein NEG Urine Glucose (UA) NEG Urine Ketones NEG Urine Blood TRACE Urine Nitrite NEG Ur Leukocyte Esterase NEG Urine RBC 1-4 Urine WBC 0-2 Ur Squamous Epith Cells 2+ Urine Bacteria TRACE Urine Test Salicylates Urine Opiates Screen Acetaminophen Ur Barbiturates Screen Ur Phencyclidine Scrn Ur Amphetamines Screen U Benzodiazepines Scrn [place] 0.54 L Urine Cocaine Screen U Marijuana (THC) Screen Ethyl Alcohol COVID-19 (RAFAL) COVID-19 Clin Com Airway Mallampati Class: III TM Dist: >3cm Neck ROM: Full Heart: RRR Lungs: CTA
--- NOTE | 2020-08-07 08:05 | HO.ANESPROP2 ---
[facility] Past Medical History Medical History Adjustment disorder Anxiety Asthma Borderline personality disorder Depression GERD (gastroesophageal reflux disease) Increased BMI Intentional self-harm PTSD (post-traumatic stress disorder) Recurrent major depression-severe Schizoaffective disorder Self-harming behavior Suicidal ideation Functional capacity: independent ambulation Social History Social History Household Members: Other Household Members Other:: long term Housing: House Do you presently have visiting nurse or other home services: No Alcohol intake: unknown Smoking Status: Current every day smoker Tobacco Type: Cigarette Packs Per Day: 0.5 Cigarettes Per Day: 10.0 Years Smoked: 15 Smoked in Last 30 Days: Yes Patient Interested in Nicotine Replacement: Yes Patient Given Instructions on How to Stop Smoking: No Second Hand Smoke Exposure: No Use of substances other than those prescribed or required for medical reasons: Yes Substance Use Type: Marijuana Substance Use Frequency: Daily Last Used Substance: Days (ago) Currently Displaying Signs/Symptoms of Drug Intoxication Withdrawal: No Any prior treatment program specific to substance use: No Have you been hit, kicked, punched, or otherwise hurt by someone within the past year? If so, by whom?: No Is there a partner from a previous relationship who is making you feel unsafe now?: No Are you made to feel afraid or neglected: No Spiritual Healthcare Practices: none Religion Healthcare Practices: none Cultural Healthcare Practices: none Advance Directives: No Advance Directives Information Provided: Yes Suicidal Behavior: Self-injurious behavior Access to Firearms: No Do you have thoughts of harming others: None Do you have a plan to hurt others: No Plan Recently lost weight without trying: Unsure service: No Meds Allergies Allergy/AdvReac Type Severity Reaction Status Date / Time carbamazepine [From TEGRETOL] AdvReac Unknown NAUSEA & Verified 06/02/20 19:50 VOMITING topiramate [From TOPAMAX] AdvReac Unknown NAUSEA & Verified 06/02/20 19:50 VOMITING Home Medications Medication Instructions Recorded Confirmed Type albuterol sulfate 2 puff INHALATION Q4-6H PRN 05/15/20 07/23/20 History cetirizine 10 mg PO DAILY 05/15/20 07/23/20 History chlorpromazine 150 mg PO Q4H PRN 05/15/20 07/23/20 History docusate sodium 200 mg PO BID 05/15/20 07/23/20 History duloxetine 60 mg PO DAILY 05/15/20 07/23/20 History gabapentin 600 mg PO BEDTIME 05/15/20 07/23/20 History haloperidol decanoate 100 mg IM Q4W 05/15/20 07/03/20 History hydroxyzine pamoate 50 mg PO TID PRN 05/15/20 07/23/20 History lithium carbonate 600 mg PO BEDTIME 05/15/20 07/23/20 History olanzapine 20 mg PO BEDTIME 05/15/20 07/23/20 History omeprazole 20 mg PO DAILY@0630 05/15/20 07/23/20 History prazosin 5 mg PO BEDTIME 05/15/20 07/23/20 History acetaminophen 650 mg PO Q6H PRN 06/02/20 07/23/20 History trazodone 100 mg PO BEDTIME 06/02/20 07/23/20 History zolpidem 12.5 mg PO BEDTIME 06/02/20 07/23/20 History haloperidol 1 tab PO BID PRN 06/24/20 07/23/20 History ibuprofen 1 tab PO QID PRN 06/24/20 07/23/20 History lorazepam 1 tab PO QID PRN 06/24/20 07/23/20 History quetiapine 400 mg PO BEDTIME 06/24/20 07/23/20 History gabapentin 400 mg PO QAM 07/03/20 07/23/20 History gabapentin 400 mg PO QNOON 07/03/20 07/23/20 History Exam Exam Date and Time: August 07, 2020 08 Height,Weight and Vital Signs: Height 4 ft 11 in Weight 108.862 kg Last Vital Signs Temp 98.2 F 08/07/20 07:49 Pulse 99 08/07/20 07:49 Resp 16 08/07/20 07:49 BP 117/67 08/07/20 07:49 Pulse Ox 95 08/07/20 07:49 Pertinent Lab Results Pertinent Lab Results: Laboratory Tests 07/23/20 07/23/20 07/23/20 16:55 16:55 17:09 WBC 7.7 RBC 3.95 L Hgb 10.9 L Hct 35.1 L MCV 88.9 MCH 27.6 MCHC 31.1 RDW 16.4 H Plt Count 294 MPV 10.3 Immature Gran % (Auto) 0.3 Neut % (Auto) 56.8 Lymph % (Auto) 37.1 [place] % (Auto) 5.3 Eos % (Auto) 0.1 Baso % (Auto) 0.4 Lymph # (Auto) 2.9 [place] # (Auto) 0.4 Eos # (Auto) 0.0 Baso # (Auto) 0.0 Abs Immat Gran (auto) 0.02 Absolute Neuts (auto) 4.4 Absolute Nucleated RBC 0.000 Nucleated RBC % (auto) 0.0 Sodium Potassium Chloride Carbon Dioxide Anion Gap BUN Creatinine Estim Creat Clear Calc Estimated GFR Random Glucose Calcium Total Bilirubin AST ALT Alkaline Phosphatase Total Protein Albumin Urine Color Urine Appearance Urine pH Ur Specific [place] Urine Protein Urine Glucose (UA) Urine Ketones Urine Blood Urine Nitrite Ur Leukocyte Esterase Urine RBC Urine WBC Ur Squamous Epith Cells Urine Bacteria Urine Test NEGATIVE Salicylates Urine Opiates Screen Not Detected Acetaminophen Ur Barbiturates Screen Not Detected Ur Phencyclidine Scrn Not Detected Ur Amphetamines Screen Not Detected U Benzodiazepines Scrn Not Detected [place] Urine Cocaine Screen Not Detected U Marijuana (THC) Screen POSITIVE H Ethyl Alcohol COVID-19 (RAFAL) COVID-19 Clin Com 07/23/20 07/23/20 07/24/20 17:09 17:09 07:51 WBC RBC Hgb Hct MCV MCH MCHC RDW Plt Count MPV Immature Gran % (Auto) Neut % (Auto) Lymph % (Auto) [place] % (Auto) Eos % (Auto) Baso % (Auto) Lymph # (Auto) [place] # (Auto) Eos # (Auto) Baso # (Auto) Abs Immat Gran (auto) Absolute Neuts (auto) Absolute Nucleated RBC Nucleated RBC % (auto) Sodium 138 Potassium 4.6 Chloride 107 Carbon Dioxide 24 Anion Gap 12 BUN 7 L Creatinine 0.79 Estim Creat Clear Calc 133.8 Estimated GFR > 60 Random Glucose 84 Calcium 8.6 Total Bilirubin 0.2 AST 12 ALT 14 Alkaline Phosphatase 73 Total Protein 6.9 Albumin 4.3 Urine Color Urine Appearance Urine pH Ur Specific [place] Urine Protein Urine Glucose (UA) Urine Ketones Urine Blood Urine Nitrite Ur Leukocyte Esterase Urine RBC Urine WBC Ur Squamous Epith Cells Urine Bacteria Urine Test Salicylates < 5.0 L Urine Opiates Screen Acetaminophen < 1 Ur Barbiturates Screen Ur Phencyclidine Scrn Ur Amphetamines Screen U Benzodiazepines Scrn [place] Urine Cocaine Screen U Marijuana (THC) Screen Ethyl Alcohol < 10 COVID-19 (RAFAL) Negative COVID-19 Clin Com See Note 07/27/20 08/01/20 08:03 21:18 WBC RBC Hgb Hct MCV MCH MCHC RDW Plt Count MPV Immature Gran % (Auto) Neut % (Auto) Lymph % (Auto) [place] % (Auto) Eos % (Auto) Baso % (Auto) Lymph # (Auto) [place] # (Auto) Eos # (Auto) Baso # (Auto) Abs Immat Gran (auto) Absolute Neuts (auto) Absolute Nucleated RBC Nucleated RBC % (auto) Sodium Potassium Chloride Carbon Dioxide Anion Gap BUN Creatinine Estim Creat Clear Calc Estimated GFR Random Glucose Calcium Total Bilirubin AST ALT Alkaline Phosphatase Total Protein Albumin Urine Color STRAW Urine Appearance CLEAR Urine pH 6.0 Ur Specific [place] 1.015 Urine Protein NEG Urine Glucose (UA) NEG Urine Ketones NEG Urine Blood TRACE Urine Nitrite NEG Ur Leukocyte Esterase NEG Urine RBC 1-4 Urine WBC 0-2 Ur Squamous Epith Cells 2+ Urine Bacteria TRACE Urine Test Salicylates Urine Opiates Screen Acetaminophen Ur Barbiturates Screen Ur Phencyclidine Scrn Ur Amphetamines Screen U Benzodiazepines Scrn [place] 0.54 L Urine Cocaine Screen U Marijuana (THC) Screen Ethyl Alcohol COVID-19 (RAFAL) COVID-19 Clin Com Assessment and Plan Assessment Anesthesia Assessment: Anesthesia Plan Discussed Final Anesthetic Review NPO: Yes ASA Class: III Final Preanesthetic Review: No Changes in Pt Med Stat, Meds/Allgs Chart Reviewed, Consent Obtained/Reviewed and Anes Risks/Benef Reviewed Patient Risk: Intermediate Procedure Risk: Low Anesthetic Plan Anesthetic Plan: GA Disposition: Standard PACU
--- NOTE | 2020-08-07 08:06 | PM.ANESPN ---
Subjective Subjective Date of Service: 08/07/20 Physical Exam Vital Signs: Vital Signs: Last Vital Signs Temp 98.2 F 08/07/20 07:49 Pulse 98 08/07/20 08:04 Resp 16 08/07/20 08:04 BP 122/65 08/07/20 08:04 Pulse Ox 96 08/07/20 08:04 Body Mass Index 48.4 Progress Note: A&P Fall Risk Details Current Medications: Current Medications Generic Name Dose Route Start Last Admin Trade Name Freq PRN Reason Stop Dose Admin Acetaminophen 650 mg 07/24/20 01:00 08/06/20 17:17 Acetaminophen 325 Mg Tablet PO 650 mg Q6H PRN Administration pain Acetaminophen 650 mg 08/05/20 08:13 Acetaminophen 325 Mg Tablet PO ONCE PRN Pain, Mild (Pain Scale 1-3) Al Hydroxide/Mg Hydroxide 30 ml 07/24/20 18:37 08/02/20 10:01 Magnesium Hydrox/Alum Hydrox 30 Ml Oral.Susp PO 30 ml Q6H PRN Administration Heartburn/Nausea Albuterol Sulfate 2 puff 07/24/20 00:20 08/04/20 14:03 Albuterol Sulfate 90 Mcg 8 Gm Inhaler INHALE 2 puff Q4H PRN Administration Wheezing Amoxicillin/Clavulanate Potassium 875 mg 08/02/20 10:00 08/06/20 21:08 Amoxicillin/Potassium Clav 875 Mg Tablet PO 875 mg Q12H SULEIMAN Administration Benzocaine 1 appl 07/29/20 13:57 08/01/20 18:17 Benzocaine 10 % Oral Gel 9 Gm Tube MUCOUS MEM 1 appl QID PRN Administration Mouth Sore Pain Protocol Chlorpromazine HCl 100 mg 07/30/20 11:28 08/06/20 16:09 Chlorpromazine Hcl 25 Mg Tablet PO 100 mg Q4H PRN Administration Agitation Cyproheptadine HCl 4 mg 07/29/20 21:45 08/06/20 21:08 Cyproheptadine Hcl 4 Mg Tablet PO 4 mg BEDTIME SULEIMAN Administration Docusate Sodium 200 mg 07/24/20 09:00 08/06/20 21:07 Docusate Sodium 100 Mg Capsule PO 200 mg BID SULEIMAN Administration Duloxetine HCl 60 mg 07/24/20 09:00 08/06/20 09:09 Duloxetine Hcl 60 Mg Capsule.Dr PO 60 mg DAILY SULEIMAN Administration Gabapentin 600 mg 07/24/20 21:00 08/06/20 15:44 Gabapentin 600 Mg Tablet PO Not Given BEDTIME SULEIMAN Gabapentin 600 mg 07/30/20 09:00 08/06/20 09:14 Gabapentin 300 Mg Capsule PO 600 mg DAILY SULEIMAN Administration Gabapentin 600 mg 07/30/20 12:00 08/06/20 11:13 Gabapentin 300 Mg Capsule PO 600 mg DAILY@1200 SULEIMAN Administration Haloperidol 5 mg 07/24/20 00:20 08/06/20 19:11 Haloperidol 5 Mg Tablet PO 5 mg BID PRN Administration psychosis Haloperidol 2 mg 07/29/20 15:00 08/06/20 21:08 Haloperidol 1 Mg Tablet PO 2 mg TID SULEIMAN Administration Hydroxyzine HCl 50 mg 07/24/20 01:06 08/06/20 19:11 Hydroxyzine Hcl 50 Mg Tablet PO 50 mg TID PRN Administration Anxiety Lactated Ringer's 1,000 mls @ 50 mls/hr 08/05/20 08:15 08/06/20 08:23 Lr IVCONT Not Given .Q20H SULEIMAN Ibuprofen 600 mg 07/24/20 00:20 08/06/20 16:09 Ibuprofen 600 Mg Tablet PO 600 mg QID PRN Administration severe pain Lidocaine 1 patch 08/01/20 18:35 08/06/20 09:18 Lidocaine 4 % Patch Adh..Patch TRANSDERMA 1 patch DAILY SULEIMAN Administration Protocol [place] Carbonate 600 mg 08/05/20 09:00 08/06/20 09:13 [place] Carbonate Er 300 Mg Tablet.Er PO 600 mg DAILY SULEIMAN Administration Lorazepam 1 mg 08/02/20 21:46 08/06/20 19:11 Lorazepam 1 Mg Tablet PO 1 mg QID PRN Administration anxiety/restlessness Magnesium Hydroxide 30 ml 07/24/20 18:37 08/02/20 11:59 Milk Of Magnesia 30 Ml Oral.Susp PO 30 ml DAILY PRN Administration Constipation Mirtazapine 7.5 mg 07/29/20 22:00 08/06/20 21:08 Mirtazapine 7.5 Mg Tablet PO 7.5 mg BEDTIME SULEIMAN Administration Naltrexone HCl 50 mg 07/30/20 11:35 08/06/20 09:13 Naltrexone Hcl 50 Mg Tablet PO 50 mg DAILY SULEIMAN Administration Nicotine 21 mg 07/26/20 10:35 08/06/20 09:18 Nicotine 21 Mg Patch.Td24 TRANSDERMA 21 mg DAILY SULEIMAN Administration Olanzapine 20 mg 07/24/20 21:00 08/06/20 21:08 Olanzapine 10 Mg Tablet PO 20 mg BEDTIME SULEIMAN Administration Omeprazole 20 mg 07/24/20 06:30 08/06/20 09:09 Omeprazole 20 Mg Capsule.Dr PO 20 mg DAILY@0630 SULEIMAN Administration Ondansetron HCl 4 mg 08/05/20 08:15 Ondansetron Hcl 4 Mg/2 Ml Vial IVPUSH ONCE PRN Nausea and Vomiting Prazosin HCl 5 mg 07/27/20 21:30 08/06/20 21:07 Prazosin Hcl 5 Mg Capsule PO 5 mg BEDTIME SULEIMAN Administration Protocol Prazosin HCl 2 mg 07/30/20 12:00 08/06/20 11:11 Prazosin Hcl 1 Mg Capsule PO 2 mg DAILY@1200 SULEIMAN Administration Protocol Sodium Biphosphate/Sodium Phosphate 133 ml 08/04/20 16:30 08/04/20 16:40 Sodium Phosphate,[place]-Dibasic 133 Ml Enema NC 133 ml ONCE PRN Administration Constipation Trazodone HCl 50 mg 07/24/20 18:37 08/06/20 22:50 Trazodone Hcl 50 Mg Tablet PO 50 mg BEDTIME PRN Administration Insomnia Time Spent With Patient Time: Total time spent is greater than 50% in coordination of care (as documented) at patient's floor/unit and/or counseling patient:
--- NOTE | 2020-08-07 08:07 | HO.POSTANES ---
Post Anesthesia Evaluation Post Anesthesia Evaluation Vital Signs: Vital Signs Temp Pulse Resp BP Pulse Ox 08/07/20 08:04 98 16 122/65 96 08/07/20 07:49 98.2 F 99 16 117/67 95 08/07/20 07:44 100 19 129/83 93 08/07/20 07:39 100 19 139/82 96 08/07/20 07:34 98.2 F 96 18 171/92 H 95 08/07/20 06:12 97.2 F 90 16 137/92 H 98 08/07/20 05:45 96.8 F 95 20 134/93 H 99 08/06/20 21:07 108 H 129/86 08/06/20 21:00 98.0 F 108 H 129/86 Anesthesia: General Mental Status: Awake Pain Control: Satisfactory Nausea/Vomiting: None Hydration: Adequate Anesthesia-Related Issues: No Anes. Related Issues
[2020-08-07] MEDS: Docusate Sodium 100 MG CAPSULE 200 MG PO ×2 (09:26→23:11)
[2020-08-07] MEDS: Acetaminophen 325 MG TABLET 650 MG PO ×2 (09:27→18:42)
[2020-08-07] MEDS: Gabapentin 300 MG CAPSULE 600 MG PO ×2 (09:27→12:15)
[2020-08-07] MEDS: Omeprazole 20 MG CAPSULE.DR PO (09:28)
[2020-08-07] MEDS: Amoxicillin/Potassium Clav 875 MG TABLET PO ×2 (09:28→23:12)
[2020-08-07] MEDS: DULoxetine HCl 60 MG CAPSULE.DR PO (09:28)
[2020-08-07] MEDS: Naltrexone HCl 50 MG TABLET PO (09:29)
[2020-08-07] MEDS: Lithium Carbonate ER 300 MG TABLET.ER 600 MG PO (09:29)
[2020-08-07] MEDS: HaloperidoL 1 MG TABLET 2 MG PO ×3 (09:29→23:12)
[2020-08-07] MEDS: Nicotine 21 MG PATCH.TD24 TRANSDERMA (09:33)
[2020-08-07] MEDS: Lidocaine 4 % Patch ADH..PATCH 1 PATCH TRANSDERMA (09:34)
[2020-08-07] MEDS: Prazosin HCL 1 MG CAPSULE 2 MG PO (12:15)
[2020-08-07] MEDS: HaloperidoL 5 MG TABLET PO (17:03)
[2020-08-07] MEDS: chlorproMAZINE HCl 25 MG TABLET 100 MG PO ×2 (17:03→23:12)
[2020-08-07] MEDS: Albuterol Sulfate 90 MCG 8 GM INHALER 2 PUFF INHALE (18:41)
[2020-08-07] MEDS: OLANZapine 10 MG TABLET 20 MG PO (23:11)
[2020-08-07] MEDS: Cyproheptadine HCl 4 MG TABLET PO (23:12)
[2020-08-07] MEDS: Prazosin HCL 5 MG CAPSULE PO (23:12)
[2020-08-07] MEDS: Mirtazapine 7.5 MG TABLET PO (23:12)
[2020-08-07] MEDS: LORazepam 1 MG TABLET PO (23:12)
--- NOTE | 2020-08-07 23:49 | P.PNPSI_ITS ---
Subjective Subjective Date of Service: 08/08/20 Reason For Visit: Depression Subjective Notes: Conditional Voluntary Interim History: patient tolerated ECT CC T note doing better Medication Compliance: Yes Mental Status Exam Mental Status Exam Patient Appearance: Disheveled and Unkempt Patient Orientation: Person, Place, Time and Situation Level of Consciousness: Awake Patient Behavior: Appropriate, Cooperative and Anxious Mood Description: Apathetic, Constricted, Flat and Sad Affect Description: Withdrawn, Constricted, Depressed, Blunted, Angry, Flat, Sad and Apprehensive Ability to Follow Directions: Fair Speech Pattern: Clear and Soft-Spoken Thought Content: positive for Perseveration Depressive Symptoms: Increased Anxiety, Diff. Making Decisions, Increased Irritability, Difficulty Sleeping, Sleeping More Than Usual, Feelings of Worthlessness, Hopelessness, Unhappiness, Increased Fatigue, Loss of Energy and Difficulty Concentrating Judgement: Poor Diagnostics Vital Signs (24Hr): Vital Signs - 24 hr 08/07/20 05:45 08/07/20 06:12 08/07/20 07:34 Temperature 96.8 F 97.2 F 98.2 F Pulse Rate 95 90 96 Respiratory Rate 20 16 18 Blood Pressure 134/93 H 137/92 H 171/92 H Pulse Oximetry 99 98 95 08/07/20 07:39 08/07/20 07:44 08/07/20 07:49 Temperature 98.2 F Pulse Rate 100 100 99 Respiratory Rate 19 19 16 Blood Pressure 139/82 129/83 117/67 Pulse Oximetry 96 93 95 08/07/20 08:04 08/07/20 08:19 08/07/20 08:34 Temperature Pulse Rate 98 87 98 Respiratory Rate 16 16 16 Blood Pressure 122/65 109/74 106/70 Pulse Oximetry 96 97 97 08/07/20 08:44 08/07/20 12:15 08/07/20 23:12 Temperature 97.2 F Pulse Rate 97 89 85 Respiratory Rate 16 Blood Pressure 117/62 107/63 124/86 Pulse Oximetry 97 08/07/20 23:18 Temperature 97.5 F Pulse Rate Respiratory Rate Blood Pressure Pulse Oximetry Body Mass Index 48.4 Labs Results: 07/23/20 17:09 07/23/20 17:09 Imaging Radiology Impressions: ITS Impressions Head CT 07/27/20 00:00 IMPRESSION: 1. No acute intracranial hemorrhage or mass effect. 2. Soft tissue injury and swelling along the anterior calvarium. Medications Medications Current Medications Generic Name Dose Route Start Last Admin Trade Name Freq PRN Reason Stop Dose Admin Acetaminophen 650 mg 07/24/20 01:00 08/07/20 18:42 Acetaminophen 325 Mg Tablet PO 650 mg Q6H PRN Administration pain Al Hydroxide/Mg Hydroxide 30 ml 07/24/20 18:37 08/02/20 10:01 Magnesium Hydrox/Alum Hydrox 30 Ml Oral.Susp PO 30 ml Q6H PRN Administration Heartburn/Nausea Albuterol Sulfate 2 puff 07/24/20 00:20 08/07/20 18:41 Albuterol Sulfate 90 Mcg 8 Gm Inhaler INHALE 2 puff Q4H PRN Administration Wheezing Amoxicillin/Clavulanate Potassium 875 mg 08/02/20 10:00 08/07/20 23:12 Amoxicillin/Potassium Clav 875 Mg Tablet PO 875 mg Q12H SULEIMAN Administration Benzocaine 1 appl 07/29/20 13:57 08/01/20 18:17 Benzocaine 10 % Oral Gel 9 Gm Tube MUCOUS MEM 1 appl QID PRN Administration Mouth Sore Pain Protocol Chlorpromazine HCl 100 mg 07/30/20 11:28 08/07/20 23:12 Chlorpromazine Hcl 25 Mg Tablet PO 100 mg Q4H PRN Administration Agitation Cyproheptadine HCl 4 mg 07/29/20 21:45 08/07/20 23:12 Cyproheptadine Hcl 4 Mg Tablet PO 4 mg BEDTIME SULEIMAN Administration Docusate Sodium 200 mg 07/24/20 09:00 08/07/20 23:11 Docusate Sodium 100 Mg Capsule PO 200 mg BID SULEIMAN Administration Duloxetine HCl 60 mg 07/24/20 09:00 08/07/20 09:28 Duloxetine Hcl 60 Mg Capsule.Dr PO 60 mg DAILY SULEIMAN Administration Gabapentin 600 mg 07/30/20 09:00 08/07/20 09:27 Gabapentin 300 Mg Capsule PO 600 mg DAILY SULEIMAN Administration Gabapentin 600 mg 07/30/20 12:00 08/07/20 12:15 Gabapentin 300 Mg Capsule PO 600 mg DAILY@1200 SULEIMAN Administration Haloperidol 5 mg 07/24/20 00:20 08/07/20 17:03 Haloperidol 5 Mg Tablet PO 5 mg BID PRN Administration psychosis Haloperidol 2 mg 07/29/20 15:00 08/07/20 23:12 Haloperidol 1 Mg Tablet PO 2 mg TID SULEIMAN Administration Hydroxyzine HCl 50 mg 07/24/20 01:06 08/06/20 19:11 Hydroxyzine Hcl 50 Mg Tablet PO 50 mg TID PRN Administration Anxiety Ibuprofen 600 mg 07/24/20 00:20 08/06/20 16:09 Ibuprofen 600 Mg Tablet PO 600 mg QID PRN Administration severe pain Lidocaine 1 patch 08/01/20 18:35 08/07/20 09:34 Lidocaine 4 % Patch Adh..Patch TRANSDERMA 1 patch DAILY SULEIMAN Administration Protocol [place] Carbonate 600 mg 08/05/20 09:00 08/07/20 09:29 [place] Carbonate Er 300 Mg Tablet.Er PO 600 mg DAILY SULEIMAN Administration Lorazepam 1 mg 08/02/20 21:46 08/07/20 23:12 Lorazepam 1 Mg Tablet PO 1 mg QID PRN Administration anxiety/restlessness Magnesium Hydroxide 30 ml 07/24/20 18:37 08/02/20 11:59 Milk Of Magnesia 30 Ml Oral.Susp PO 30 ml DAILY PRN Administration Constipation Mirtazapine 7.5 mg 07/29/20 22:00 08/07/20 23:12 Mirtazapine 7.5 Mg Tablet PO 7.5 mg BEDTIME SULEIMAN Administration Naltrexone HCl 50 mg 07/30/20 11:35 08/07/20 09:29 Naltrexone Hcl 50 Mg Tablet PO 50 mg DAILY SULEIMAN Administration Nicotine 21 mg 07/26/20 10:35 08/07/20 09:33 Nicotine 21 Mg Patch.Td24 TRANSDERMA 21 mg DAILY SULEIMAN Administration Olanzapine 20 mg 07/24/20 21:00 08/07/20 23:11 Olanzapine 10 Mg Tablet PO 20 mg BEDTIME SULEIMAN Administration Omeprazole 20 mg 07/24/20 06:30 08/07/20 09:28 Omeprazole 20 Mg Capsule.Dr PO 20 mg DAILY@0630 SULEIMAN Administration Prazosin HCl 5 mg 07/27/20 21:30 08/07/20 23:12 Prazosin Hcl 5 Mg Capsule PO 5 mg BEDTIME SULEIMAN Administration Protocol Prazosin HCl 2 mg 07/30/20 12:00 08/07/20 12:15 Prazosin Hcl 1 Mg Capsule PO 2 mg DAILY@1200 SULEIMAN Administration Protocol Sodium Biphosphate/Sodium Phosphate 133 ml 08/04/20 16:30 08/04/20 16:40 Sodium Phosphate,[place]-Dibasic 133 Ml Enema [place] 133 ml ONCE PRN Administration Constipation Trazodone HCl 50 mg 07/24/20 18:37 08/06/20 22:50 Trazodone Hcl 50 Mg Tablet PO 50 mg BEDTIME PRN Administration Insomnia Allergies Allergies Allergy/AdvReac Type Severity Reaction Status Date / Time carbamazepine [From TEGRETOL] AdvReac Unknown NAUSEA & Verified 06/02/20 19:50 VOMITING topiramate [From TOPAMAX] AdvReac Unknown NAUSEA & Verified 06/02/20 19:50 VOMITING Assessment & Plan Assessment & Plan (1) Recurrent major depression-severe: Status: Acute Code(s): F33.2 - Major depressive disorder, recurrent severe without psychotic features Assessment and Plan: continue present treatment plan low-dose Haldol see if we can taper olanzapine continue ECT discharge planning (2) Borderline personality disorder: Status: Acute Code(s): F60.3 - Borderline personality disorder Assessment and Plan: encourage DBT (3) Suicidal ideation: Status: Acute Code(s): R45.851 - Suicidal ideations (4) Acute post-traumatic stress disorder: Status: Acute Code(s): F43.11 - Post-traumatic stress disorder, acute Greater than 50% of the session was spent on counseling and/or coordination of care Patient educated on: diagnosis, medication risk/benefits, substance abuse, ECT, therapeutic strategies and medical condition Informed Consent: further education needed Reason for contiued inpatient stay Substantial Risk for: inability to function
[2020-08-08] MEDS: Ibuprofen 600 MG TABLET PO
[2020-08-08] MEDS: traZODone HCL 50 MG TABLET PO ×2 (01:22)
[2020-08-08] MEDS: hydrOXYzine HCL 50 MG TABLET PO (01:22)
[2020-08-08] MEDS: Lithium Carbonate ER 300 MG TABLET.ER 600 MG PO (09:06)
[2020-08-08] MEDS: Docusate Sodium 100 MG CAPSULE 200 MG PO ×2 (09:06→20:34)
[2020-08-08] MEDS: DULoxetine HCl 60 MG CAPSULE.DR PO (09:06)
[2020-08-08] MEDS: Omeprazole 20 MG CAPSULE.DR PO (09:07)
[2020-08-08] MEDS: Amoxicillin/Potassium Clav 875 MG TABLET PO ×2 (09:07→20:35)
[2020-08-08] MEDS: Naltrexone HCl 50 MG TABLET PO (09:07)
[2020-08-08] MEDS: HaloperidoL 1 MG TABLET 2 MG PO ×3 (09:07→20:35)
[2020-08-08] MEDS: Gabapentin 300 MG CAPSULE 600 MG PO ×2 (09:07→12:45)
[2020-08-08] MEDS: Lidocaine 4 % Patch ADH..PATCH 1 PATCH TRANSDERMA (09:08)
[2020-08-08] MEDS: Nicotine 21 MG PATCH.TD24 TRANSDERMA (09:08)
[2020-08-08 09:54] VITALS: BP 122/66; PULSE 87; RESP 18; TEMP 37.1; O2SAT 96
[2020-08-08] MEDS: Prazosin HCL 1 MG CAPSULE 2 MG PO (12:45)
[2020-08-08 13:36] VITALS: BMI 52.4
[2020-08-08] MEDS: HaloperidoL 5 MG TABLET PO (15:37)
[2020-08-08] MEDS: LORazepam 1 MG TABLET PO (15:37)
[2020-08-08 16:33] VITALS: BP 132/82; PULSE 108; TEMP 36.5; O2SAT 98
[2020-08-08] MEDS: chlorproMAZINE HCl 25 MG TABLET 100 MG PO (19:30)
[2020-08-08] MEDS: OLANZapine 10 MG TABLET 20 MG PO (20:34)
[2020-08-08] MEDS: Milk of Magnesia 30 ML ORAL.SUSP PO (20:34)
[2020-08-08 20:35] VITALS: BP 135/77; PULSE 108
[2020-08-08] MEDS: Mirtazapine 7.5 MG TABLET PO (20:35)
[2020-08-08] MEDS: Cyproheptadine HCl 4 MG TABLET PO (20:35)
[2020-08-08] MEDS: Prazosin HCL 5 MG CAPSULE PO (20:35)
--- NOTE | 2020-08-08 22:40 | HO.PSYCHPN ---
Subjective Subjective Date of Service: 08/08/20 Reason For Visit: Depression Interim History: patient showing some gradual improvement instability concerned about and feeling isolated from her sister who was killed Medication Compliance: Yes Mental Status Exam Mental Status Exam Patient Appearance: Disheveled and Unkempt Patient Orientation: Person, Place, Time and Situation Level of Consciousness: Awake Patient Behavior: Appropriate, Cooperative and Anxious Mood Description: Apathetic, Constricted, Flat and Sad Affect Description: Withdrawn, Constricted, Depressed, Blunted, Angry, Flat, Sad and Apprehensive Ability to Follow Directions: Fair Speech Pattern: Clear and Soft-Spoken Thought Content: positive for Perseveration Depressive Symptoms: Increased Anxiety, Diff. Making Decisions, Increased Irritability, Difficulty Sleeping, Sleeping More Than Usual, Feelings of Worthlessness, Hopelessness, Unhappiness, Increased Fatigue, Loss of Energy and Difficulty Concentrating Judgement: Poor Diagnostics Vital Signs (24Hr): Vital Signs - 24 hr 08/07/20 23:12 08/07/20 23:18 08/08/20 09:54 Temperature 97.5 F 98.8 F Pulse Rate 85 87 Respiratory Rate 18 Blood Pressure 124/86 122/66 Pulse Oximetry 96 08/08/20 16:33 08/08/20 20:35 Temperature 97.7 F Pulse Rate 108 H 108 H Respiratory Rate Blood Pressure 132/82 135/77 Pulse Oximetry 98 Body Mass Index 52.4 Labs Results: 07/23/20 17:09 07/23/20 17:09 Imaging Radiology Impressions: ITS Impressions Head CT 07/27/20 00:00 IMPRESSION: 1. No acute intracranial hemorrhage or mass effect. 2. Soft tissue injury and swelling along the anterior calvarium. Medications Medications Current Medications Generic Name Dose Route Start Last Admin Trade Name Freq PRN Reason Stop Dose Admin Acetaminophen 650 mg 07/24/20 01:00 08/07/20 18:42 Acetaminophen 325 Mg Tablet PO 650 mg Q6H PRN Administration pain Al Hydroxide/Mg Hydroxide 30 ml 07/24/20 18:37 08/02/20 10:01 Magnesium Hydrox/Alum Hydrox 30 Ml Oral.Susp PO 30 ml Q6H PRN Administration Heartburn/Nausea Albuterol Sulfate 2 puff 07/24/20 00:20 08/07/20 18:41 Albuterol Sulfate 90 Mcg 8 Gm Inhaler INHALE 2 puff Q4H PRN Administration Wheezing Amoxicillin/Clavulanate Potassium 875 mg 08/02/20 10:00 08/08/20 20:35 Amoxicillin/Potassium Clav 875 Mg Tablet PO 875 mg Q12H SULEIMAN Administration Benzocaine 1 appl 07/29/20 13:57 08/01/20 18:17 Benzocaine 10 % Oral Gel 9 Gm Tube MUCOUS MEM 1 appl QID PRN Administration Mouth Sore Pain Protocol Chlorpromazine HCl 100 mg 07/30/20 11:28 08/08/20 19:30 Chlorpromazine Hcl 25 Mg Tablet PO 100 mg Q4H PRN Administration Agitation Cyproheptadine HCl 4 mg 07/29/20 21:45 08/08/20 20:35 Cyproheptadine Hcl 4 Mg Tablet PO 4 mg BEDTIME SULEIMAN Administration Docusate Sodium 200 mg 07/24/20 09:00 08/08/20 20:34 Docusate Sodium 100 Mg Capsule PO 200 mg BID SULEIMAN Administration Duloxetine HCl 60 mg 07/24/20 09:00 08/08/20 09:06 Duloxetine Hcl 60 Mg Capsule.Dr PO 60 mg DAILY SULEIMAN Administration Gabapentin 600 mg 07/30/20 09:00 08/08/20 09:07 Gabapentin 300 Mg Capsule PO 600 mg DAILY SULEIMAN Administration Gabapentin 600 mg 07/30/20 12:00 08/08/20 12:45 Gabapentin 300 Mg Capsule PO 600 mg DAILY@1200 SULEIMAN Administration Haloperidol 5 mg 07/24/20 00:20 08/08/20 15:37 Haloperidol 5 Mg Tablet PO 5 mg BID PRN Administration psychosis Haloperidol 2 mg 07/29/20 15:00 08/08/20 20:35 Haloperidol 1 Mg Tablet PO 2 mg TID SULEIMAN Administration Hydroxyzine HCl 50 mg 07/24/20 01:06 08/08/20 01:22 Hydroxyzine Hcl 50 Mg Tablet PO 50 mg TID PRN Administration Anxiety Ibuprofen 600 mg 07/24/20 00:20 08/08/20 00:00 Ibuprofen 600 Mg Tablet PO 600 mg QID PRN Administration severe pain Lidocaine 1 patch 08/01/20 18:35 08/08/20 09:08 Lidocaine 4 % Patch Adh..Patch TRANSDERMA 1 patch DAILY SULEIMAN Administration Protocol [place] Carbonate 600 mg 08/05/20 09:00 08/08/20 09:06 [place] Carbonate Er 300 Mg Tablet.Er PO 600 mg DAILY SULEIMAN Administration Lorazepam 1 mg 08/02/20 21:46 08/08/20 15:37 Lorazepam 1 Mg Tablet PO 1 mg QID PRN Administration anxiety/restlessness Magnesium Hydroxide 30 ml 07/24/20 18:37 08/08/20 20:34 Milk Of Magnesia 30 Ml Oral.Susp PO 30 ml DAILY PRN Administration Constipation Mirtazapine 7.5 mg 07/29/20 22:00 08/08/20 20:35 Mirtazapine 7.5 Mg Tablet PO 7.5 mg BEDTIME SULEIMAN Administration Naltrexone HCl 50 mg 07/30/20 11:35 08/08/20 09:07 Naltrexone Hcl 50 Mg Tablet PO 50 mg DAILY SULEIMAN Administration Nicotine 21 mg 07/26/20 10:35 08/08/20 09:08 Nicotine 21 Mg Patch.Td24 TRANSDERMA 21 mg DAILY SULEIMAN Administration Olanzapine 20 mg 07/24/20 21:00 08/08/20 20:34 Olanzapine 10 Mg Tablet PO 20 mg BEDTIME SULEIMAN Administration Omeprazole 20 mg 07/24/20 06:30 08/08/20 09:07 Omeprazole 20 Mg Capsule.Dr PO 20 mg DAILY@0630 SULEIMAN Administration Prazosin HCl 5 mg 07/27/20 21:30 08/08/20 20:35 Prazosin Hcl 5 Mg Capsule PO 5 mg BEDTIME SULEIMAN Administration Protocol Prazosin HCl 2 mg 07/30/20 12:00 08/08/20 12:45 Prazosin Hcl 1 Mg Capsule PO 2 mg DAILY@1200 SULEIMAN Administration Protocol Sodium Biphosphate/Sodium Phosphate 133 ml 08/04/20 16:30 08/04/20 16:40 Sodium Phosphate,[place]-Dibasic 133 Ml Enema [place] 133 ml ONCE PRN Administration Constipation Trazodone HCl 50 mg 07/24/20 18:37 08/08/20 01:22 Trazodone Hcl 50 Mg Tablet PO 50 mg BEDTIME PRN Administration Insomnia Allergies Allergies Allergy/AdvReac Type Severity Reaction Status Date / Time carbamazepine [From TEGRETOL] AdvReac Unknown NAUSEA & Verified 06/02/20 19:50 VOMITING topiramate [From TOPAMAX] AdvReac Unknown NAUSEA & Verified 06/02/20 19:50 VOMITING Assessment & Plan Assessment & Plan (1) Recurrent major depression-severe: Status: Acute Code(s): F33.2 - Major depressive disorder, recurrent severe without psychotic features (2) Borderline personality disorder: Status: Acute Code(s): F60.3 - Borderline personality disorder Assessment and Plan: continue plan of care Greater than 50% of the session was spent on counseling and/or coordination of care
[2020-08-09] MEDS: chlorproMAZINE HCl 25 MG TABLET 100 MG PO ×2 (00:26→18:56)
[2020-08-09] MEDS: LORazepam 1 MG TABLET PO ×2 (03:39→18:57)
[2020-08-09] MEDS: HaloperidoL 5 MG TABLET PO ×2 (03:39→18:56)
[2020-08-09] MEDS: Acetaminophen 325 MG TABLET 650 MG PO (03:39)
[2020-08-09] MEDS: Lithium Carbonate ER 300 MG TABLET.ER 600 MG PO (08:18)
[2020-08-09] MEDS: Docusate Sodium 100 MG CAPSULE 200 MG PO ×2 (08:18→21:06)
[2020-08-09] MEDS: Omeprazole 20 MG CAPSULE.DR PO (08:18)
[2020-08-09] MEDS: Amoxicillin/Potassium Clav 875 MG TABLET PO ×2 (08:19→21:06)
[2020-08-09] MEDS: DULoxetine HCl 60 MG CAPSULE.DR PO (08:19)
[2020-08-09] MEDS: Naltrexone HCl 50 MG TABLET PO (08:19)
[2020-08-09] MEDS: Gabapentin 300 MG CAPSULE 600 MG PO ×2 (08:19→12:01)
[2020-08-09] MEDS: HaloperidoL 1 MG TABLET 2 MG PO ×3 (08:19→21:05)
[2020-08-09] MEDS: Lidocaine 4 % Patch ADH..PATCH 1 PATCH TRANSDERMA (08:19)
[2020-08-09] MEDS: Nicotine 21 MG PATCH.TD24 TRANSDERMA (08:19)
[2020-08-09 12:01] VITALS: BP 116/74; PULSE 85
[2020-08-09] MEDS: Prazosin HCL 1 MG CAPSULE 2 MG PO (12:01)
[2020-08-09 12:06] VITALS: TEMP 36.3; O2SAT 97
[2020-08-09 18:00] VITALS: BP 126/75; PULSE 100; TEMP 36.4
[2020-08-09] MEDS: OLANZapine 10 MG TABLET 20 MG PO (21:00)
[2020-08-09] MEDS: Cyproheptadine HCl 4 MG TABLET PO (21:00)
[2020-08-09] MEDS: Prazosin HCL 5 MG CAPSULE PO (21:00)
[2020-08-09] MEDS: Mirtazapine 7.5 MG TABLET PO (21:06)
[2020-08-09] MEDS: traZODone HCL 50 MG TABLET PO (21:06)
--- NOTE | 2020-08-09 23:55 | HO.PSYCHPN ---
Subjective Subjective Date of Service: 08/09/20 Reason For Visit: Depression Subjective Notes: Conditional Voluntary Interim History: patient anxious sad about not being with her sister on [place] and her sister having Medication Compliance: Yes Side effects from medications: Yes Mental Status Exam Mental Status Exam Patient Appearance: Disheveled and Unkempt Patient Orientation: Person, Place, Time and Situation Level of Consciousness: Awake Patient Behavior: Appropriate, Cooperative and Anxious Mood Description: Apathetic, Constricted, Flat and Sad Affect Description: Withdrawn, Constricted, Depressed, Blunted, Angry, Flat, Sad and Apprehensive Ability to Follow Directions: Fair Speech Pattern: Clear and Soft-Spoken Thought Content: positive for Perseveration Depressive Symptoms: Increased Anxiety, Diff. Making Decisions, Increased Irritability, Difficulty Sleeping, Sleeping More Than Usual, Feelings of Worthlessness, Hopelessness, Unhappiness, Increased Fatigue, Loss of Energy and Difficulty Concentrating Judgement: Poor Diagnostics Vital Signs (24Hr): Vital Signs - 24 hr 08/09/20 12:01 08/09/20 12:06 08/09/20 18:00 Temperature 97.3 F 97.6 F Pulse Rate 85 100 Blood Pressure 116/74 126/75 Pulse Oximetry 97 Body Mass Index 52.4 Labs Results: 07/23/20 17:09 07/23/20 17:09 Imaging Radiology Impressions: ITS Impressions Head CT 07/27/20 00:00 IMPRESSION: 1. No acute intracranial hemorrhage or mass effect. 2. Soft tissue injury and swelling along the anterior calvarium. Medications Medications Current Medications Generic Name Dose Route Start Last Admin Trade Name Freq PRN Reason Stop Dose Admin Acetaminophen 650 mg 07/24/20 01:00 08/09/20 03:39 Acetaminophen 325 Mg Tablet PO 650 mg Q6H PRN Administration pain Al Hydroxide/Mg Hydroxide 30 ml 07/24/20 18:37 08/02/20 10:01 Magnesium Hydrox/Alum Hydrox 30 Ml Oral.Susp PO 30 ml Q6H PRN Administration Heartburn/Nausea Albuterol Sulfate 2 puff 07/24/20 00:20 08/07/20 18:41 Albuterol Sulfate 90 Mcg 8 Gm Inhaler INHALE 2 puff Q4H PRN Administration Wheezing Amoxicillin/Clavulanate Potassium 875 mg 08/02/20 10:00 08/09/20 21:06 Amoxicillin/Potassium Clav 875 Mg Tablet PO 875 mg Q12H SULEIMAN Administration Benzocaine 1 appl 07/29/20 13:57 08/01/20 18:17 Benzocaine 10 % Oral Gel 9 Gm Tube MUCOUS MEM 1 appl QID PRN Administration Mouth Sore Pain Protocol Chlorpromazine HCl 100 mg 07/30/20 11:28 08/09/20 18:56 Chlorpromazine Hcl 25 Mg Tablet PO 100 mg Q4H PRN Administration Agitation Cyproheptadine HCl 4 mg 07/29/20 21:45 08/09/20 21:00 Cyproheptadine Hcl 4 Mg Tablet PO 4 mg BEDTIME SULEIMAN Administration Docusate Sodium 200 mg 07/24/20 09:00 08/09/20 21:06 Docusate Sodium 100 Mg Capsule PO 200 mg BID SULEIMAN Administration Duloxetine HCl 60 mg 07/24/20 09:00 08/09/20 08:19 Duloxetine Hcl 60 Mg Capsule.Dr PO 60 mg DAILY SULEIMAN Administration Gabapentin 600 mg 07/30/20 09:00 08/09/20 08:19 Gabapentin 300 Mg Capsule PO 600 mg DAILY SULEIMAN Administration Gabapentin 600 mg 07/30/20 12:00 08/09/20 12:01 Gabapentin 300 Mg Capsule PO 600 mg DAILY@1200 SULEIMAN Administration Haloperidol 5 mg 07/24/20 00:20 08/09/20 18:56 Haloperidol 5 Mg Tablet PO 5 mg BID PRN Administration psychosis Haloperidol 2 mg 07/29/20 15:00 08/09/20 21:05 Haloperidol 1 Mg Tablet PO 2 mg TID SULEIMAN Administration Hydroxyzine HCl 50 mg 07/24/20 01:06 08/08/20 01:22 Hydroxyzine Hcl 50 Mg Tablet PO 50 mg TID PRN Administration Anxiety Ibuprofen 600 mg 07/24/20 00:20 08/08/20 00:00 Ibuprofen 600 Mg Tablet PO 600 mg QID PRN Administration severe pain Lidocaine 1 patch 08/01/20 18:35 08/09/20 08:19 Lidocaine 4 % Patch Adh..Patch TRANSDERMA 1 patch DAILY SULEIMAN Administration Protocol [employer] Carbonate 600 mg 08/05/20 09:00 08/09/20 08:18 [employer] Carbonate Er 300 Mg Tablet.Er PO 600 mg DAILY SULEIMAN Administration Lorazepam 1 mg 08/02/20 21:46 08/09/20 18:57 Lorazepam 1 Mg Tablet PO 1 mg QID PRN Administration anxiety/restlessness Magnesium Hydroxide 30 ml 07/24/20 18:37 08/08/20 20:34 Milk Of Magnesia 30 Ml Oral.Susp PO 30 ml DAILY PRN Administration Constipation Mirtazapine 7.5 mg 07/29/20 22:00 08/09/20 21:06 Mirtazapine 7.5 Mg Tablet PO 7.5 mg BEDTIME SULEIMAN Administration Naltrexone HCl 50 mg 07/30/20 11:35 08/09/20 08:19 Naltrexone Hcl 50 Mg Tablet PO 50 mg DAILY SULEIMAN Administration Nicotine 21 mg 07/26/20 10:35 08/09/20 08:19 Nicotine 21 Mg Patch.Td24 TRANSDERMA 21 mg DAILY SULEIMAN Administration Olanzapine 20 mg 07/24/20 21:00 08/09/20 21:00 Olanzapine 10 Mg Tablet PO 20 mg BEDTIME SULEIMAN Administration Omeprazole 20 mg 07/24/20 06:30 08/09/20 08:18 Omeprazole 20 Mg Capsule.Dr PO 20 mg DAILY@0630 SULEIMAN Administration Prazosin HCl 5 mg 07/27/20 21:30 08/09/20 21:00 Prazosin Hcl 5 Mg Capsule PO 5 mg BEDTIME SULEIMAN Administration Protocol Prazosin HCl 2 mg 07/30/20 12:00 08/09/20 12:01 Prazosin Hcl 1 Mg Capsule PO 2 mg DAILY@1200 SULEIMAN Administration Protocol Sodium Biphosphate/Sodium Phosphate 133 ml 08/04/20 16:30 08/04/20 16:40 Sodium Phosphate,[place]-Dibasic 133 Ml Enema [place] 133 ml ONCE PRN Administration Constipation Trazodone HCl 50 mg 07/24/20 18:37 08/09/20 21:06 Trazodone Hcl 50 Mg Tablet PO 50 mg BEDTIME PRN Administration Insomnia Allergies Allergies Allergy/AdvReac Type Severity Reaction Status Date / Time carbamazepine [From TEGRETOL] AdvReac Unknown NAUSEA & Verified 06/02/20 19:50 VOMITING topiramate [From TOPAMAX] AdvReac Unknown NAUSEA & Verified 06/02/20 19:50 VOMITING Assessment & Plan Assessment & Plan (1) Suicidal ideation: Status: Acute Code(s): R45.851 - Suicidal ideations (2) Recurrent major depression-severe: Status: Acute Code(s): F33.2 - Major depressive disorder, recurrent severe without psychotic features Assessment and Plan: continue ECT propranolol for tremor Greater than 50% of the session was spent on counseling and/or coordination of care Informed Consent: understands Reason for contiued inpatient stay Substantial Risk for: harm to self and rapid decompensation
[2020-08-10] MEDS: Lithium Carbonate ER 300 MG TABLET.ER 600 MG PO (09:09)
[2020-08-10] MEDS: Naltrexone HCl 50 MG TABLET PO (09:09)
[2020-08-10] MEDS: Omeprazole 20 MG CAPSULE.DR PO (09:09)
[2020-08-10] MEDS: HaloperidoL 1 MG TABLET 2 MG PO ×3 (09:09→22:50)
[2020-08-10] MEDS: DULoxetine HCl 60 MG CAPSULE.DR PO (09:09)
[2020-08-10] MEDS: Docusate Sodium 100 MG CAPSULE 200 MG PO ×2 (09:09→20:09)
[2020-08-10] MEDS: Gabapentin 300 MG CAPSULE 600 MG PO ×2 (09:09→13:21)
[2020-08-10] MEDS: Amoxicillin/Potassium Clav 875 MG TABLET PO ×2 (09:09→22:50)
[2020-08-10] MEDS: Nicotine 21 MG PATCH.TD24 TRANSDERMA (09:10)
[2020-08-10] MEDS: Lidocaine 4 % Patch ADH..PATCH 1 PATCH TRANSDERMA (09:10)
[2020-08-10] MEDS: Albuterol Sulfate 90 MCG 8 GM INHALER 2 PUFF INHALE (12:08)
[2020-08-10] MEDS: Prazosin HCL 1 MG CAPSULE 2 MG PO (13:21)
[2020-08-10] MEDS: Propranolol HCL 10 MG TABLET PO ×2 (14:21→22:50)
[2020-08-10] MEDS: Ibuprofen 600 MG TABLET PO (16:00)
[2020-08-10] MEDS: chlorproMAZINE HCl 25 MG TABLET 100 MG PO ×2 (18:46→22:51)
[2020-08-10] MEDS: polyethylene glycoL 3350 17 GM POWD.PACK PO (20:10)
[2020-08-10 22:33] VITALS: TEMP 36.4
[2020-08-10 22:50] VITALS: BP 119/78; PULSE 100
[2020-08-10] MEDS: traZODone HCL 50 MG TABLET PO (22:50)
[2020-08-10 22:51] VITALS: BP 119/78; PULSE 100
[2020-08-10] MEDS: Prazosin HCL 5 MG CAPSULE PO (22:51)
[2020-08-10] MEDS: Cyproheptadine HCl 4 MG TABLET PO (22:52)
[2020-08-10] MEDS: Mirtazapine 7.5 MG TABLET PO (22:52)
[2020-08-10] MEDS: OLANZapine 10 MG TABLET 20 MG PO (22:53)
--- NOTE | 2020-08-10 23:04 | HO.PSYCHPN ---
Subjective Subjective Date of Service: 08/10/20 Reason For Visit: Depression Subjective Notes: Conditional Voluntary Interim History: no self harm less a labile periodic agitation Medication Compliance: Yes Mental Status Exam Mental Status Exam Patient Appearance: Disheveled and Unkempt Patient Orientation: Person, Place, Time and Situation Level of Consciousness: Awake Patient Behavior: Appropriate, Cooperative and Anxious Mood Description: Apathetic, Constricted, Flat and Sad Affect Description: Withdrawn, Constricted, Depressed, Blunted, Angry, Flat, Sad and Apprehensive Ability to Follow Directions: Fair Speech Pattern: Clear and Soft-Spoken Thought Content: positive for Perseveration Depressive Symptoms: Increased Anxiety, Diff. Making Decisions, Increased Irritability, Difficulty Sleeping, Sleeping More Than Usual, Feelings of Worthlessness, Hopelessness, Unhappiness, Increased Fatigue, Loss of Energy and Difficulty Concentrating Judgement: Poor Diagnostics Vital Signs (24Hr): Vital Signs - 24 hr 08/10/20 22:33 08/10/20 22:50 08/10/20 22:51 Temperature 97.5 F Pulse Rate 100 100 Blood Pressure 119/78 119/78 Body Mass Index 52.4 Labs Results: 07/23/20 17:09 07/23/20 17:09 Imaging Radiology Impressions: ITS Impressions Head CT 07/27/20 00:00 IMPRESSION: 1. No acute intracranial hemorrhage or mass effect. 2. Soft tissue injury and swelling along the anterior calvarium. Medications Medications Current Medications Generic Name Dose Route Start Last Admin Trade Name Freq PRN Reason Stop Dose Admin Acetaminophen 650 mg 07/24/20 01:00 08/09/20 03:39 Acetaminophen 325 Mg Tablet PO 650 mg Q6H PRN Administration pain Al Hydroxide/Mg Hydroxide 30 ml 07/24/20 18:37 08/02/20 10:01 Magnesium Hydrox/Alum Hydrox 30 Ml Oral.Susp PO 30 ml Q6H PRN Administration Heartburn/Nausea Albuterol Sulfate 2 puff 07/24/20 00:20 08/10/20 12:08 Albuterol Sulfate 90 Mcg 8 Gm Inhaler INHALE 2 puff Q4H PRN Administration Wheezing Amoxicillin/Clavulanate Potassium 875 mg 08/02/20 10:00 08/10/20 22:50 Amoxicillin/Potassium Clav 875 Mg Tablet PO 875 mg Q12H SULEMIAN Administration Benzocaine 1 appl 07/29/20 13:57 08/01/20 18:17 Benzocaine 10 % Oral Gel 9 Gm Tube MUCOUS MEM 1 appl QID PRN Administration Mouth Sore Pain Protocol Chlorpromazine HCl 100 mg 07/30/20 11:28 08/10/20 22:51 Chlorpromazine Hcl 25 Mg Tablet PO 100 mg Q4H PRN Administration Agitation Cyproheptadine HCl 4 mg 07/29/20 21:45 08/10/20 22:52 Cyproheptadine Hcl 4 Mg Tablet PO 4 mg BEDTIME SULEIMAN Administration Docusate Sodium 200 mg 07/24/20 09:00 08/10/20 20:09 Docusate Sodium 100 Mg Capsule PO 200 mg BID SULEIMAN Administration Duloxetine HCl 60 mg 07/24/20 09:00 08/10/20 09:09 Duloxetine Hcl 60 Mg Capsule.Dr PO 60 mg DAILY SULEIMAN Administration Gabapentin 600 mg 07/30/20 09:00 08/10/20 09:09 Gabapentin 300 Mg Capsule PO 600 mg DAILY SULEIMAN Administration Gabapentin 600 mg 07/30/20 12:00 08/10/20 13:21 Gabapentin 300 Mg Capsule PO 600 mg DAILY@1200 SULEIMAN Administration Haloperidol 5 mg 07/24/20 00:20 08/09/20 18:56 Haloperidol 5 Mg Tablet PO 5 mg BID PRN Administration psychosis Haloperidol 2 mg 07/29/20 15:00 08/10/20 22:50 Haloperidol 1 Mg Tablet PO 2 mg TID SULEIMAN Administration Hydroxyzine HCl 50 mg 07/24/20 01:06 08/08/20 01:22 Hydroxyzine Hcl 50 Mg Tablet PO 50 mg TID PRN Administration Anxiety Ibuprofen 600 mg 07/24/20 00:20 08/10/20 16:00 Ibuprofen 600 Mg Tablet PO 600 mg QID PRN Administration severe pain Lidocaine 1 patch 08/01/20 18:35 08/10/20 09:10 Lidocaine 4 % Patch Adh..Patch TRANSDERMA 1 patch DAILY SULEIMAN Administration Protocol [place] Carbonate 600 mg 08/05/20 09:00 08/10/20 09:09 [place] Carbonate Er 300 Mg Tablet.Er PO 600 mg DAILY SULEIMAN Administration Lorazepam 1 mg 08/02/20 21:46 08/09/20 18:57 Lorazepam 1 Mg Tablet PO 1 mg QID PRN Administration anxiety/restlessness Magnesium Hydroxide 30 ml 07/24/20 18:37 08/08/20 20:34 Milk Of Magnesia 30 Ml Oral.Susp PO 30 ml DAILY PRN Administration Constipation Mirtazapine 7.5 mg 07/29/20 22:00 08/10/20 22:52 Mirtazapine 7.5 Mg Tablet PO 7.5 mg BEDTIME SULEIMAN Administration Naltrexone HCl 50 mg 07/30/20 11:35 08/10/20 09:09 Naltrexone Hcl 50 Mg Tablet PO 50 mg DAILY SULEIMAN Administration Nicotine 21 mg 07/26/20 10:35 08/10/20 09:10 Nicotine 21 Mg Patch.Td24 TRANSDERMA 21 mg DAILY SULEIMAN Administration Olanzapine 20 mg 07/24/20 21:00 08/10/20 22:53 Olanzapine 10 Mg Tablet PO 20 mg BEDTIME SULEIMAN Administration Omeprazole 20 mg 07/24/20 06:30 08/10/20 09:09 Omeprazole 20 Mg Capsule.Dr PO 20 mg DAILY@0630 SULEIMAN Administration Polyethylene Glycol 17 gm 08/10/20 21:00 08/10/20 20:10 Polyethylene Glycol 3350 17 Gm Powd.Pack PO 17 gm BEDTIME SULEIMAN Administration Prazosin HCl 5 mg 07/27/20 21:30 08/10/20 22:51 Prazosin Hcl 5 Mg Capsule PO 5 mg BEDTIME SULEIMAN Administration Protocol Prazosin HCl 2 mg 07/30/20 12:00 08/10/20 13:21 Prazosin Hcl 1 Mg Capsule PO 2 mg DAILY@1200 SULEIMAN Administration Protocol Propranolol HCl 10 mg 08/10/20 15:00 08/10/20 22:50 Propranolol Hcl 10 Mg Tablet PO 10 mg TID SULEIMAN Administration Protocol Sodium Biphosphate/Sodium Phosphate 133 ml 08/04/20 16:30 08/04/20 16:40 Sodium Phosphate,[place]-Dibasic 133 Ml Enema [place] 133 ml ONCE PRN Administration Constipation Trazodone HCl 50 mg 07/24/20 18:37 08/10/20 22:50 Trazodone Hcl 50 Mg Tablet PO 50 mg BEDTIME PRN Administration Insomnia Allergies Allergies Allergy/AdvReac Type Severity Reaction Status Date / Time carbamazepine [From TEGRETOL] AdvReac Unknown NAUSEA & Verified 06/02/20 19:50 VOMITING topiramate [From TOPAMAX] AdvReac Unknown NAUSEA & Verified 06/02/20 19:50 VOMITING Assessment & Plan Assessment & Plan (1) Recurrent major depression-severe: Status: Acute Code(s): F33.2 - Major depressive disorder, recurrent severe without psychotic features Assessment and Plan: cont plan care ect taper zyprexa inc mirtazapine (2) Borderline personality disorder: Status: Acute Code(s): F60.3 - Borderline personality disorder (3) Suicidal ideation: Status: Acute Code(s): R45.851 - Suicidal ideations Greater than 50% of the session was spent on counseling and/or coordination of care
[2020-08-11] MEDS: chlorproMAZINE HCl 25 MG TABLET 100 MG PO ×2 (03:34→21:18)
[2020-08-11] MEDS: LORazepam 1 MG TABLET PO (03:37)
[2020-08-11] MEDS: Nicotine 21 MG PATCH.TD24 TRANSDERMA (08:58)
[2020-08-11] MEDS: Lidocaine 4 % Patch ADH..PATCH 1 PATCH TRANSDERMA (08:58)
[2020-08-11 08:59] VITALS: BP 100/68; PULSE 62
[2020-08-11] MEDS: Propranolol HCL 10 MG TABLET PO ×3 (08:59→21:17)
[2020-08-11] MEDS: HaloperidoL 1 MG TABLET 2 MG PO ×3 (08:59→21:15)
[2020-08-11] MEDS: Naltrexone HCl 50 MG TABLET PO (09:00)
[2020-08-11] MEDS: Omeprazole 20 MG CAPSULE.DR PO (09:00)
[2020-08-11] MEDS: Gabapentin 300 MG CAPSULE 600 MG PO (09:00)
[2020-08-11] MEDS: Lithium Carbonate ER 300 MG TABLET.ER 600 MG PO (09:01)
[2020-08-11] MEDS: Docusate Sodium 100 MG CAPSULE 200 MG PO (09:02)
[2020-08-11] MEDS: Amoxicillin/Potassium Clav 875 MG TABLET PO (09:02)
[2020-08-11] MEDS: DULoxetine HCl 60 MG CAPSULE.DR PO (09:24)
--- NOTE | 2020-08-11 11:31 | P.PNPSI_ITS ---
Subjective Subjective Date of Service: 08/12/20 Reason For Visit: Depression Interim History: patient continues to be cooperative she is feeling better on current regimen Medication Compliance: Yes Side effects from medications: Yes Attending Groups: Intermittent Mental Status Exam Mental Status Exam Patient Appearance: Appropriate Patient Orientation: Person, Place, Time and Situation Level of Consciousness: Awake Patient Behavior: Appropriate, Cooperative and Anxious Mood Description: Constricted, Flat and Sad Affect Description: Withdrawn, Constricted, Depressed, Blunted, Flat, Sad and Apprehensive Ability to Follow Directions: Fair Speech Pattern: Clear and Soft-Spoken Thought Content: positive for Perseveration Depressive Symptoms: Increased Anxiety, Diff. Making Decisions, Increased Irritability, Difficulty Sleeping, Sleeping More Than Usual, Feelings of Worthlessness, Hopelessness, Unhappiness, Increased Fatigue, Loss of Energy and Difficulty Concentrating Judgement: Poor Diagnostics Vital Signs (24Hr): Vital Signs - 24 hr 08/10/20 22:33 08/10/20 22:50 08/10/20 22:51 Temperature 97.5 F Pulse Rate 100 100 Blood Pressure 119/78 119/78 08/11/20 08:59 Temperature Pulse Rate 62 Blood Pressure 100/68 Body Mass Index 52.4 Labs Results: 07/23/20 17:09 07/23/20 17:09 Imaging Radiology Impressions: ITS Impressions Head CT 07/27/20 00:00 IMPRESSION: 1. No acute intracranial hemorrhage or mass effect. 2. Soft tissue injury and swelling along the anterior calvarium. Medications Medications Current Medications Generic Name Dose Route Start Last Admin Trade Name Freq PRN Reason Stop Dose Admin Acetaminophen 650 mg 07/24/20 01:00 08/09/20 03:39 Acetaminophen 325 Mg Tablet PO 650 mg Q6H PRN Administration pain Al Hydroxide/Mg Hydroxide 30 ml 07/24/20 18:37 08/02/20 10:01 Magnesium Hydrox/Alum Hydrox 30 Ml Oral.Susp PO 30 ml Q6H PRN Administration Heartburn/Nausea Albuterol Sulfate 2 puff 07/24/20 00:20 08/10/20 12:08 Albuterol Sulfate 90 Mcg 8 Gm Inhaler INHALE 2 puff Q4H PRN Administration Wheezing Amoxicillin/Clavulanate Potassium 875 mg 08/02/20 10:00 08/11/20 09:02 Amoxicillin/Potassium Clav 875 Mg Tablet PO 875 mg Q12H SULEIMAN Administration Benzocaine 1 appl 07/29/20 13:57 08/01/20 18:17 Benzocaine 10 % Oral Gel 9 Gm Tube MUCOUS MEM 1 appl QID PRN Administration Mouth Sore Pain Protocol Chlorpromazine HCl 100 mg 07/30/20 11:28 08/11/20 03:34 Chlorpromazine Hcl 25 Mg Tablet PO 100 mg Q4H PRN Administration Agitation Cyproheptadine HCl 4 mg 07/29/20 21:45 08/10/20 22:52 Cyproheptadine Hcl 4 Mg Tablet PO 4 mg BEDTIME SULEIMAN Administration Docusate Sodium 200 mg 07/24/20 09:00 08/11/20 09:02 Docusate Sodium 100 Mg Capsule PO 200 mg BID SULEIMAN Administration Duloxetine HCl 60 mg 07/24/20 09:00 08/11/20 09:24 Duloxetine Hcl 60 Mg Capsule.Dr PO 60 mg DAILY SULEIMAN Administration Gabapentin 600 mg 07/30/20 09:00 08/11/20 09:00 Gabapentin 300 Mg Capsule PO 600 mg DAILY SULEIMAN Administration Gabapentin 600 mg 07/30/20 12:00 08/10/20 13:21 Gabapentin 300 Mg Capsule PO 600 mg DAILY@1200 SULEIMAN Administration Haloperidol 5 mg 07/24/20 00:20 08/09/20 18:56 Haloperidol 5 Mg Tablet PO 5 mg BID PRN Administration psychosis Haloperidol 2 mg 07/29/20 15:00 08/11/20 08:59 Haloperidol 1 Mg Tablet PO 2 mg TID SULEIMAN Administration Hydroxyzine HCl 50 mg 07/24/20 01:06 08/08/20 01:22 Hydroxyzine Hcl 50 Mg Tablet PO 50 mg TID PRN Administration Anxiety Ibuprofen 600 mg 07/24/20 00:20 08/10/20 16:00 Ibuprofen 600 Mg Tablet PO 600 mg QID PRN Administration severe pain Lidocaine 1 patch 08/01/20 18:35 08/11/20 08:58 Lidocaine 4 % Patch Adh..Patch TRANSDERMA 1 patch DAILY SULEIMAN Administration Protocol [place] Carbonate 600 mg 08/05/20 09:00 08/11/20 09:01 [place] Carbonate Er 300 Mg Tablet.Er PO 600 mg DAILY SULEIMAN Administration Lorazepam 1 mg 08/02/20 21:46 08/11/20 03:37 Lorazepam 1 Mg Tablet PO 1 mg QID PRN Administration anxiety/restlessness Magnesium Hydroxide 30 ml 07/24/20 18:37 08/08/20 20:34 Milk Of Magnesia 30 Ml Oral.Susp PO 30 ml DAILY PRN Administration Constipation Mirtazapine 7.5 mg 07/29/20 22:00 08/10/20 22:52 Mirtazapine 7.5 Mg Tablet PO 7.5 mg BEDTIME SULEIMAN Administration Naltrexone HCl 50 mg 07/30/20 11:35 08/11/20 09:00 Naltrexone Hcl 50 Mg Tablet PO 50 mg DAILY SULEIMAN Administration Nicotine 21 mg 07/26/20 10:35 08/11/20 08:58 Nicotine 21 Mg Patch.Td24 TRANSDERMA 21 mg DAILY SULEIMAN Administration Olanzapine 20 mg 07/24/20 21:00 08/10/20 22:53 Olanzapine 10 Mg Tablet PO 20 mg BEDTIME SULEIMAN Administration Omeprazole 20 mg 07/24/20 06:30 08/11/20 09:00 Omeprazole 20 Mg Capsule.Dr PO 20 mg DAILY@0630 SULEIMAN Administration Polyethylene Glycol 17 gm 08/10/20 21:00 08/10/20 20:10 Polyethylene Glycol 3350 17 Gm Powd.Pack PO 17 gm BEDTIME SULEIMAN Administration Prazosin HCl 5 mg 07/27/20 21:30 08/10/20 22:51 Prazosin Hcl 5 Mg Capsule PO 5 mg BEDTIME SULEIMAN Administration Protocol Prazosin HCl 2 mg 07/30/20 12:00 08/10/20 13:21 Prazosin Hcl 1 Mg Capsule PO 2 mg DAILY@1200 SULEIMAN Administration Protocol Propranolol HCl 10 mg 08/10/20 15:00 08/11/20 08:59 Propranolol Hcl 10 Mg Tablet PO 10 mg TID SULEIMAN Administration Protocol Sodium Biphosphate/Sodium Phosphate 133 ml 08/04/20 16:30 08/04/20 16:40 Sodium Phosphate,[place]-Dibasic 133 Ml Enema [place] 133 ml ONCE PRN Administration Constipation Trazodone HCl 50 mg 07/24/20 18:37 08/10/20 22:50 Trazodone Hcl 50 Mg Tablet PO 50 mg BEDTIME PRN Administration Insomnia Allergies Allergies Allergy/AdvReac Type Severity Reaction Status Date / Time carbamazepine [From TEGRETOL] AdvReac Unknown NAUSEA & Verified 06/02/20 19:50 VOMITING topiramate [From TOPAMAX] AdvReac Unknown NAUSEA & Verified 06/02/20 19:50 VOMITING Assessment & Plan Assessment & Plan (1) Recurrent major depression-severe: Status: Acute Code(s): F33.2 - Major depressive disorder, recurrent severe without psychotic features Assessment and Plan: continue ECT Greater than 50% of the session was spent on counseling and/or coordination of care
[2020-08-11 12:41] VITALS: BP 128/65; PULSE 97
[2020-08-11] MEDS: Prazosin HCL 1 MG CAPSULE 2 MG PO (12:41)
[2020-08-11] MEDS: HaloperidoL 5 MG TABLET PO (12:41)
[2020-08-11 14:08] VITALS: BP 128/65; PULSE 97
[2020-08-11 21:14] VITALS: TEMP 36.8
[2020-08-11] MEDS: Mirtazapine 15 MG TABLET PO (21:15)
[2020-08-11] MEDS: OLANZapine 7.5 MG TABLET 15 MG PO (21:15)
[2020-08-11] MEDS: Cyproheptadine HCl 4 MG TABLET PO (21:15)
[2020-08-11 21:17] VITALS: BP 118/62; PULSE 92
[2020-08-11] MEDS: Prazosin HCL 5 MG CAPSULE PO (21:17)
[2020-08-11] MEDS: traZODone HCL 50 MG TABLET PO ×2 (21:17→23:52)
[2020-08-11] MEDS: hydrOXYzine HCL 50 MG TABLET PO (23:52)
[2020-08-12] VITALS (13 sets, daily range): BP systolic 88–138; BP diastolic 53–90; PULSE 80–99; RESP 16–22; TEMP -8.8–36.8; O2SAT 93–98; BMI 52.4
--- NOTE | 2020-08-12 06:57 | MHC.SHP ---
Pre-Procedural Eval Section A The patient is an INPATIENT: No Changes since office visit: No Cold of Flu in the past 2 weeks, No New Medical Problems, No Changes in Medication and No Patient answered all questions The History & Physical has been completed within 30 days and I have reviewed it.: Yes Section B Chief Complaint: Depression Allergies: Allergies Allergy/AdvReac Type Severity Reaction Status Date / Time carbamazepine [From TEGRETOL] AdvReac Unknown NAUSEA & Verified 06/02/20 19:50 VOMITING topiramate [From TOPAMAX] AdvReac Unknown NAUSEA & Verified 06/02/20 19:50 VOMITING Plan I have reviewed the history and physical and performed a pertinent physical examination on my patient. No changes have occurred unless specified.
--- NOTE | 2020-08-12 06:58 | HO.ECTPROC ---
ECT Procedure Note Diagnosis/Treatment Diagnosis: Major Depressive Disorder Previous ECT Date: 08/07/20 Current Treatment Number: 3 Treatment: Series Interval Clinical Notes: better mood ECT Settings Device: THYMATRON DGx Electrode Placement: Bitemporal Program/Pulse Width: 0.50 Energy Percent: 100 Seizure Duration By EEG (in seconds): 32 By Motor Observation (in seconds): 28 Medications Administration General Anesthetic: Etomidate (14) Muscle Relaxant: Succinylcholine (100) Ancillary Medications Analgesics: Torodol - Pre ECT (15) Anti-emetics: Zofran - Pre ECT (4) Miscillaneous Medications: Propofol (30) Airway Management Airway Management: Bag Mask Ventilation Treatment Recommendations No Changes Recommended: No change Electrode Placement: Bitemporal Program/Pulse Width: 0.50 Energy Percent: 100 Pt Tolerated Procedure w/o Issue: Yes
--- NOTE | 2020-08-12 08:31 | P.CONAN_ITS ---
[facility] Past Medical History Medical History Adjustment disorder Anxiety Asthma Borderline personality disorder Depression GERD (gastroesophageal reflux disease) Increased BMI Intentional self-harm PTSD (post-traumatic stress disorder) Recurrent major depression-severe Schizoaffective disorder Self-harming behavior Suicidal ideation Functional capacity: independent ambulation Social History Social History Household Members: Other Household Members Other:: senior care Housing: House Do you presently have visiting nurse or other home services: No Alcohol intake: unknown Smoking Status: Current every day smoker Tobacco Type: Cigarette Packs Per Day: 0.5 Cigarettes Per Day: 10.0 Years Smoked: 15 Smoked in Last 30 Days: Yes Patient Interested in Nicotine Replacement: Yes Patient Given Instructions on How to Stop Smoking: No Second Hand Smoke Exposure: No Use of substances other than those prescribed or required for medical reasons: Yes Substance Use Type: Marijuana Substance Use Frequency: Daily Last Used Substance: Days (ago) Currently Displaying Signs/Symptoms of Drug Intoxication Withdrawal: No Any prior treatment program specific to substance use: No Have you been hit, kicked, punched, or otherwise hurt by someone within the past year? If so, by whom?: No Is there a partner from a previous relationship who is making you feel unsafe now?: No Are you made to feel afraid or neglected: No Spiritual Healthcare Practices: none Protestant Healthcare Practices: none Cultural Healthcare Practices: none Advance Directives: No Advance Directives Information Provided: Yes Suicidal Behavior: Self-injurious behavior Access to Firearms: No Do you have thoughts of harming others: None Do you have a plan to hurt others: No Plan Recently lost weight without trying: Unsure service: No Meds Allergies Allergy/AdvReac Type Severity Reaction Status Date / Time carbamazepine [From TEGRETOL] AdvReac Unknown NAUSEA & Verified 06/02/20 19:50 VOMITING topiramate [From TOPAMAX] AdvReac Unknown NAUSEA & Verified 06/02/20 19:50 VOMITING Home Medications Medication Instructions Recorded Confirmed Type albuterol sulfate 2 puff INHALATION Q4-6H PRN 05/15/20 07/23/20 History cetirizine 10 mg PO DAILY 05/15/20 07/23/20 History chlorpromazine 150 mg PO Q4H PRN 05/15/20 07/23/20 History docusate sodium 200 mg PO BID 05/15/20 07/23/20 History duloxetine 60 mg PO DAILY 05/15/20 07/23/20 History gabapentin 600 mg PO BEDTIME 05/15/20 07/23/20 History haloperidol decanoate 100 mg IM Q4W 05/15/20 07/03/20 History hydroxyzine pamoate 50 mg PO TID PRN 05/15/20 07/23/20 History lithium carbonate 600 mg PO BEDTIME 05/15/20 07/23/20 History olanzapine 20 mg PO BEDTIME 05/15/20 07/23/20 History omeprazole 20 mg PO DAILY@0630 05/15/20 07/23/20 History prazosin 5 mg PO BEDTIME 05/15/20 07/23/20 History acetaminophen 650 mg PO Q6H PRN 06/02/20 07/23/20 History trazodone 100 mg PO BEDTIME 06/02/20 07/23/20 History zolpidem 12.5 mg PO BEDTIME 06/02/20 07/23/20 History haloperidol 1 tab PO BID PRN 06/24/20 07/23/20 History ibuprofen 1 tab PO QID PRN 06/24/20 07/23/20 History lorazepam 1 tab PO QID PRN 06/24/20 07/23/20 History quetiapine 400 mg PO BEDTIME 06/24/20 07/23/20 History gabapentin 400 mg PO QAM 07/03/20 07/23/20 History gabapentin 400 mg PO QNOON 07/03/20 07/23/20 History Exam Exam Date and Time: August 12, 2020830 Height,Weight and Vital Signs: Height 4 ft 11 in Weight 117.8 kg Last Vital Signs Temp 98.2 F 08/12/20 08:26 Pulse 97 08/12/20 08:26 Resp 22 H 08/12/20 08:26 BP 124/87 08/12/20 08:26 Pulse Ox 94 08/12/20 08:26 Pertinent Lab Results Pertinent Lab Results: Laboratory Tests 07/23/20 07/23/20 07/23/20 16:55 16:55 17:09 WBC 7.7 RBC 3.95 L Hgb 10.9 L Hct 35.1 L MCV 88.9 MCH 27.6 MCHC 31.1 RDW 16.4 H Plt Count 294 MPV 10.3 Immature Gran % (Auto) 0.3 Neut % (Auto) 56.8 Lymph % (Auto) 37.1 [place] % (Auto) 5.3 Eos % (Auto) 0.1 Baso % (Auto) 0.4 Lymph # (Auto) 2.9 [place] # (Auto) 0.4 Eos # (Auto) 0.0 Baso # (Auto) 0.0 Abs Immat Gran (auto) 0.02 Absolute Neuts (auto) 4.4 Absolute Nucleated RBC 0.000 Nucleated RBC % (auto) 0.0 Sodium Potassium Chloride Carbon Dioxide Anion Gap BUN Creatinine Estim Creat Clear Calc Estimated GFR Random Glucose Calcium Total Bilirubin AST ALT Alkaline Phosphatase Total Protein Albumin Urine Color Urine Appearance Urine pH Ur Specific [place] Urine Protein Urine Glucose (UA) Urine Ketones Urine Blood Urine Nitrite Ur Leukocyte Esterase Urine RBC Urine WBC Ur Squamous Epith Cells Urine Bacteria Urine Test NEGATIVE Salicylates Urine Opiates Screen Not Detected Acetaminophen Ur Barbiturates Screen Not Detected Ur Phencyclidine Scrn Not Detected Ur Amphetamines Screen Not Detected U Benzodiazepines Scrn Not Detected [place] Urine Cocaine Screen Not Detected U Marijuana (THC) Screen POSITIVE H Ethyl Alcohol COVID-19 (RAFAL) COVID-19 Clin Com 07/23/20 07/23/20 07/24/20 17:09 17:09 07:51 WBC RBC Hgb Hct MCV MCH MCHC RDW Plt Count MPV Immature Gran % (Auto) Neut % (Auto) Lymph % (Auto) [place] % (Auto) Eos % (Auto) Baso % (Auto) Lymph # (Auto) [place] # (Auto) Eos # (Auto) Baso # (Auto) Abs Immat Gran (auto) Absolute Neuts (auto) Absolute Nucleated RBC Nucleated RBC % (auto) Sodium 138 Potassium 4.6 Chloride 107 Carbon Dioxide 24 Anion Gap 12 BUN 7 L Creatinine 0.79 Estim Creat Clear Calc 133.8 Estimated GFR > 60 Random Glucose 84 Calcium 8.6 Total Bilirubin 0.2 AST 12 ALT 14 Alkaline Phosphatase 73 Total Protein 6.9 Albumin 4.3 Urine Color Urine Appearance Urine pH Ur Specific [place] Urine Protein Urine Glucose (UA) Urine Ketones Urine Blood Urine Nitrite Ur Leukocyte Esterase Urine RBC Urine WBC Ur Squamous Epith Cells Urine Bacteria Urine Test Salicylates < 5.0 L Urine Opiates Screen Acetaminophen < 1 Ur Barbiturates Screen Ur Phencyclidine Scrn Ur Amphetamines Screen U Benzodiazepines Scrn [place] Urine Cocaine Screen U Marijuana (THC) Screen Ethyl Alcohol < 10 COVID-19 (RAFAL) Negative COVID-19 Clin Com See Note 07/27/20 08/01/20 08:03 21:18 WBC RBC Hgb Hct MCV MCH MCHC RDW Plt Count MPV Immature Gran % (Auto) Neut % (Auto) Lymph % (Auto) [place] % (Auto) Eos % (Auto) Baso % (Auto) Lymph # (Auto) [place] # (Auto) Eos # (Auto) Baso # (Auto) Abs Immat Gran (auto) Absolute Neuts (auto) Absolute Nucleated RBC Nucleated RBC % (auto) Sodium Potassium Chloride Carbon Dioxide Anion Gap BUN Creatinine Estim Creat Clear Calc Estimated GFR Random Glucose Calcium Total Bilirubin AST ALT Alkaline Phosphatase Total Protein Albumin Urine Color STRAW Urine Appearance CLEAR Urine pH 6.0 Ur Specific [place] 1.015 Urine Protein NEG Urine Glucose (UA) NEG Urine Ketones NEG Urine Blood TRACE Urine Nitrite NEG Ur Leukocyte Esterase NEG Urine RBC 1-4 Urine WBC 0-2 Ur Squamous Epith Cells 2+ Urine Bacteria TRACE Urine Test Salicylates Urine Opiates Screen Acetaminophen Ur Barbiturates Screen Ur Phencyclidine Scrn Ur Amphetamines Screen U Benzodiazepines Scrn [place] 0.54 L Urine Cocaine Screen U Marijuana (THC) Screen Ethyl Alcohol COVID-19 (RAFAL) COVID-19 Clin Com Airway Mallampati Class: III TM Dist: >3cm Neck ROM: Full Heart: RRR Lungs: CTA
[2020-08-12] MEDS: Heparin Sodium,Porcine Flush 500 UNIT/5 ML SYRINGE IVFLUSH (09:03)
[2020-08-12] MEDS: Nicotine 21 MG PATCH.TD24 TRANSDERMA (09:40)
[2020-08-12] MEDS: Lidocaine 4 % Patch ADH..PATCH 1 PATCH TRANSDERMA (09:40)
[2020-08-12] MEDS: DULoxetine HCl 60 MG CAPSULE.DR PO (09:41)
[2020-08-12] MEDS: Lithium Carbonate ER 300 MG TABLET.ER 600 MG PO (09:41)
[2020-08-12] MEDS: Docusate Sodium 100 MG CAPSULE 200 MG PO ×2 (09:41→20:29)
[2020-08-12] MEDS: Propranolol HCL 10 MG TABLET PO ×3 (09:42→20:29)
[2020-08-12] MEDS: Naltrexone HCl 50 MG TABLET PO (09:43)
[2020-08-12] MEDS: Omeprazole 20 MG CAPSULE.DR PO (09:43)
[2020-08-12] MEDS: Prazosin HCL 1 MG CAPSULE 2 MG PO (12:14)
[2020-08-12] MEDS: Gabapentin 300 MG CAPSULE 600 MG PO (12:14)
[2020-08-12] MEDS: HaloperidoL 1 MG TABLET 2 MG PO ×2 (15:00→20:29)
[2020-08-12] MEDS: Acetaminophen 325 MG TABLET 650 MG PO (17:25)
[2020-08-12] MEDS: chlorproMAZINE HCl 25 MG TABLET 100 MG PO (20:28)
[2020-08-12] MEDS: LORazepam 1 MG TABLET PO (20:29)
[2020-08-12] MEDS: Prazosin HCL 5 MG CAPSULE PO (20:29)
[2020-08-12] MEDS: OLANZapine 7.5 MG TABLET 15 MG PO (20:29)
[2020-08-12] MEDS: Mirtazapine 15 MG TABLET PO (20:29)
[2020-08-12] MEDS: Cyproheptadine HCl 4 MG TABLET PO (20:29)
[2020-08-12] MEDS: polyethylene glycoL 3350 17 GM POWD.PACK PO (20:31)
--- NOTE | 2020-08-12 23:10 | P.PNPSI_ITS ---
Subjective Subjective Date of Service: 08/12/20 Reason For Visit: Depression Subjective Notes: Conditional Voluntary Interim History: patient cooperative did well with ECT Medication Compliance: Yes Mental Status Exam Mental Status Exam Patient Appearance: Appropriate Patient Orientation: Person, Place, Time and Situation Level of Consciousness: Awake Patient Behavior: Appropriate, Cooperative and Anxious Mood Description: Constricted, Flat and Sad Affect Description: Withdrawn, Constricted, Depressed, Blunted, Flat, Sad and Apprehensive Ability to Follow Directions: Fair Speech Pattern: Clear and Soft-Spoken Thought Content: positive for Perseveration Depressive Symptoms: Increased Anxiety, Diff. Making Decisions, Increased Irritability, Difficulty Sleeping, Sleeping More Than Usual, Feelings of Worthl essness, Hopelessness, Unhappiness, Increased Fatigue, Loss of Energy and Difficulty Concentrating Judgement: Poor Diagnostics Vital Signs (24Hr): Vital Signs - 24 hr 08/12/20 05:40 08/12/20 06:25 08/12/20 08:26 Temperature 96.4 F L 97.5 F 98.2 F Pulse Rate 80 85 97 Respiratory Rate 16 18 22 H Blood Pressure 88/53 L 138/81 124/87 Pulse Oximetry 96 97 94 08/12/20 08:31 08/12/20 08:36 08/12/20 08:41 Temperature Pulse Rate 92 92 89 Respiratory Rate 18 22 H 17 Blood Pressure 137/85 120/85 117/84 Pulse Oximetry 94 96 97 08/12/20 08:56 08/12/20 09:11 08/12/20 09:42 Temperature 97.7 F Pulse Rate 86 85 85 Respiratory Rate 18 18 Blood Pressure 135/78 134/82 134/82 Pulse Oximetry 93 95 08/12/20 10:04 08/12/20 12:14 08/12/20 15:00 Temperature 98.0 F Pulse Rate 83 83 83 Respiratory Rate 16 Blood Pressure 109/58 L 109/58 L 109/58 L Pulse Oximetry 98 08/12/20 20:55 Temperature 97.8 F Pulse Rate 99 Respiratory Rate Blood Pressure 128/90 H Pulse Oximetry Body Mass Index 52.4 Labs Results: 07/23/20 17:09 07/23/20 17:09 Imaging Radiology Impressions: ITS Impressions Head CT 07/27/20 00:00 IMPRESSION: 1. No acute intracranial hemorrhage or mass effect. 2. Soft tissue injury and swelling along the anterior calvarium. Medications Medications Current Medications Generic Name Dose Route Start Last Admin Trade Name Freq PRN Reason Stop Dose Admin Acetaminophen 650 mg 07/24/20 01:00 08/12/20 17:25 Acetaminophen 325 Mg Tablet PO 650 mg Q6H PRN Administration pain Acetaminophen 650 mg 08/12/20 08:32 Acetaminophen 325 Mg Tablet PO ONCE PRN Pain, Mild (Pain Scale 1-3) Al Hydroxide/Mg Hydroxide 30 ml 07/24/20 18:37 08/02/20 10:01 Magnesium Hydrox/Alum Hydrox 30 Ml Oral.Susp PO 30 ml Q6H PRN Administration Heartburn/Nausea Albuterol Sulfate 2 puff 07/24/20 00:20 08/10/20 12:08 Albuterol Sulfate 90 Mcg 8 Gm Inhaler INHALE 2 puff Q4H PRN Administration Wheezing Benzocaine 1 appl 07/29/20 13:57 08/01/20 18:17 Benzocaine 10 % Oral Gel 9 Gm Tube MUCOUS MEM 1 appl QID PRN Administration Mouth Sore Pain Protocol Bisacodyl 10 mg 08/11/20 12:23 Bisacodyl 5 Mg Tablet.Dr PO DAILY PRN Constipation Chlorpromazine HCl 100 mg 07/30/20 11:28 08/12/20 20:28 Chlorpromazine Hcl 25 Mg Tablet PO 100 mg Q4H PRN Administration Agitation Cyproheptadine HCl 4 mg 07/29/20 21:45 08/12/20 20:29 Cyproheptadine Hcl 4 Mg Tablet PO 4 mg BEDTIME SULEIMAN Administration Docusate Sodium 200 mg 07/24/20 09:00 08/12/20 20:29 Docusate Sodium 100 Mg Capsule PO 200 mg BID SULEIMAN Administration Duloxetine HCl 60 mg 07/24/20 09:00 08/12/20 09:41 Duloxetine Hcl 60 Mg Capsule. PO 60 mg DAILY SULEIMAN Administration Gabapentin 600 mg 07/30/20 09:00 08/11/20 09:00 Gabapentin 300 Mg Capsule PO 600 mg DAILY SULEIMAN Administration Gabapentin 600 mg 07/30/20 12:00 08/12/20 12:14 Gabapentin 300 Mg Capsule PO 600 mg DAILY@1200 SULEIMAN Administration Haloperidol 5 mg 07/24/20 00:20 08/11/20 12:41 Haloperidol 5 Mg Tablet PO 5 mg BID PRN Administration psychosis Haloperidol 2 mg 07/29/20 15:00 08/12/20 20:29 Haloperidol 1 Mg Tablet PO 2 mg TID SULEIMAN Administration Hydroxyzine HCl 50 mg 07/24/20 01:06 08/11/20 23:52 Hydroxyzine Hcl 50 Mg Tablet PO 50 mg TID PRN Administration Anxiety Ibuprofen 600 mg 07/24/20 00:20 08/10/20 16:00 Ibuprofen 600 Mg Tablet PO 600 mg QID PRN Administration severe pain Lidocaine 1 patch 08/01/20 18:35 08/12/20 09:40 Lidocaine 4 % Patch Adh..Patch TRANSDERMA 1 patch DAILY SULEIMAN Administration Protocol [place] Carbonate 600 mg 08/05/20 09:00 08/12/20 09:41 [place] Carbonate Er 300 Mg Tablet.Er PO 600 mg DAILY SULEIMAN Administration Lorazepam 1 mg 08/02/20 21:46 08/12/20 20:29 Lorazepam 1 Mg Tablet PO 1 mg QID PRN Administration anxiety/restlessness Magnesium Hydroxide 30 ml 07/24/20 18:37 08/08/20 20:34 Milk Of Magnesia 30 Ml Oral.Susp PO 30 ml DAILY PRN Administration Constipation Mirtazapine 15 mg 08/11/20 21:00 08/12/20 20:29 Mirtazapine 15 Mg Tablet PO 15 mg BEDTIME SULEIMAN Administration Naltrexone HCl 50 mg 07/30/20 11:35 08/12/20 09:43 Naltrexone Hcl 50 Mg Tablet PO 50 mg DAILY SULEIMAN Administration Nicotine 21 mg 07/26/20 10:35 08/12/20 09:40 Nicotine 21 Mg Patch.Td24 TRANSDERMA 21 mg DAILY SULEIMAN Administration Olanzapine 15 mg 08/11/20 21:00 08/12/20 20:29 Olanzapine 7.5 Mg Tablet PO 15 mg BEDTIME SULEIMAN Administration Omeprazole 20 mg 07/24/20 06:30 08/12/20 10:08 Omeprazole 20 Mg Capsule.Dr PO Not Given DAILY@0630 SULEIMAN Ondansetron HCl 4 mg 08/12/20 08:32 Ondansetron Hcl 4 Mg/2 Ml Vial IVPUSH ONCE PRN Nausea and Vomiting Polyethylene Glycol 17 gm 08/10/20 21:00 08/12/20 20:31 Polyethylene Glycol 3350 17 Gm Powd.Pack PO 17 gm BEDTIME SULEIMAN Administration Prazosin HCl 5 mg 07/27/20 21:30 08/12/20 20:29 Prazosin Hcl 5 Mg Capsule PO 5 mg BEDTIME SULEIMAN Administration Protocol Prazosin HCl 2 mg 07/30/20 12:00 08/12/20 12:14 Prazosin Hcl 1 Mg Capsule PO 2 mg DAILY@1200 [facility] Administration Protocol Propranolol HCl 10 mg 08/10/20 15:00 08/12/20 20:29 Propranolol Hcl 10 Mg Tablet PO 10 mg TID SULEIMAN Administration Protocol Sodium Biphosphate/Sodium Phosphate 133 ml 08/04/20 16:30 08/04/20 16:40 Sodium Phosphate,[place]-Dibasic 133 Ml Enema [place] 133 ml ONCE PRN Administration Constipation Trazodone HCl 50 mg 07/24/20 18:37 08/11/20 23:52 Trazodone Hcl 50 Mg Tablet PO 50 mg BEDTIME PRN Administration Insomnia Allergies Allergies Allergy/AdvReac Type Severity Reaction Status Date / Time carbamazepine [From TEGRETOL] AdvReac Unknown NAUSEA & Verified 06/02/20 19:50 VOMITING topiramate [From TOPAMAX] AdvReac Unknown NAUSEA & Verified 06/02/20 19:50 VOMITING Assessment & Plan Assessment & Plan (1) GERD (gastroesophageal reflux disease): Status: Acute Code(s): K21.9 - Gastro-esophageal reflux disease without esophagitis (2) Recurrent major depression-severe: Status: Acute Code(s): F33.2 - Major depressive disorder, recurrent severe without psychotic features (3) Borderline personality disorder: Status: Acute Code(s): F60.3 - Borderline personality disorder (4) Suicidal ideation: Status: Acute Code(s): R45.851 - Suicidal ideations (5) Acute post-traumatic stress disorder: Status: Acute Code(s): F43.11 - Post-traumatic stress disorder, acute Assessment and Plan: continue plan of care mirtazapine has been added olanzapine lower continue ECT Greater than 50% of the session was spent on counseling and/or coordination of care
[2020-08-13 09:01] VITALS: BP 122/63; PULSE 74
[2020-08-13] MEDS: Docusate Sodium 100 MG CAPSULE 200 MG PO ×2 (09:01→19:44)
[2020-08-13] MEDS: Lithium Carbonate ER 300 MG TABLET.ER 600 MG PO (09:01)
[2020-08-13] MEDS: Propranolol HCL 10 MG TABLET PO ×3 (09:01→19:45)
[2020-08-13] MEDS: HaloperidoL 1 MG TABLET 2 MG PO ×3 (09:01→19:45)
[2020-08-13] MEDS: Naltrexone HCl 50 MG TABLET PO (09:01)
[2020-08-13] MEDS: Omeprazole 20 MG CAPSULE.DR PO (09:01)
[2020-08-13] MEDS: Gabapentin 300 MG CAPSULE 600 MG PO ×2 (09:01→12:00)
[2020-08-13] MEDS: DULoxetine HCl 60 MG CAPSULE.DR PO (09:01)
[2020-08-13] MEDS: Nicotine 21 MG PATCH.TD24 TRANSDERMA (09:02)
[2020-08-13] MEDS: Lidocaine 4 % Patch ADH..PATCH 1 PATCH TRANSDERMA (09:02)
[2020-08-13 09:13] VITALS: RESP 16; TEMP 36.3; O2SAT 97
[2020-08-13 11:59] VITALS: BP 111/67; PULSE 74
[2020-08-13] MEDS: Prazosin HCL 1 MG CAPSULE 2 MG PO (11:59)
[2020-08-13 14:26] VITALS: BP 117/62; PULSE 82
[2020-08-13 18:00] VITALS: BP 111/69; PULSE 98; TEMP 36.6
[2020-08-13] MEDS: Prazosin HCL 5 MG CAPSULE PO (19:44)
[2020-08-13] MEDS: Cyproheptadine HCl 4 MG TABLET PO (19:44)
[2020-08-13] MEDS: chlorproMAZINE HCl 25 MG TABLET 100 MG PO (19:45)
[2020-08-13] MEDS: OLANZapine 7.5 MG TABLET 15 MG PO (19:45)
[2020-08-13] MEDS: Mirtazapine 15 MG TABLET PO (19:45)
[2020-08-13] MEDS: LORazepam 1 MG TABLET PO (19:45)
[2020-08-13] MEDS: polyethylene glycoL 3350 17 GM POWD.PACK PO (19:46)
--- NOTE | 2020-08-13 22:14 | P.PNPSI_ITS ---
Subjective Subjective Date of Service: 08/13/20 Reason For Visit: Depression Subjective Notes: Conditional Voluntary Interim History: Pt has some inc anxiety related to unit continues to do better with ect Medication Compliance: Yes Side effects from medications: Yes Mental Status Exam Mental Status Exam Patient Appearance: Appropriate Patient Orientation: Person, Place, Time and Situation Level of Consciousness: Awake Patient Behavior: Appropriate, Cooperative and Anxious Mood Description: Constricted, Flat and Sad Affect Description: Withdrawn, Constricted, Depressed, Blunted, Flat, Sad and Apprehensive Ability to Follow Directions: Fair Speech Pattern: Clear and Soft-Spoken Thought Content: positive for Perseveration Depressive Symptoms: Increased Anxiety, Diff. Making Decisions, Increased Irritability, Difficulty Sleeping, Sleeping More Than Usual, Feelings of Worthlessness, Hopelessness, Unhappiness, Increased Fatigue, Loss of Energy and Difficulty Concentrating Judgement: Poor Diagnostics Vital Signs (24Hr): Vital Signs - 24 hr 08/13/20 09:01 08/13/20 09:13 08/13/20 11:59 Temperature 97.3 F Pulse Rate 74 74 Respiratory Rate 16 Blood Pressure 122/63 111/67 Pulse Oximetry 97 08/13/20 14:26 08/13/20 18:00 Temperature 97.8 F Pulse Rate 82 98 Respiratory Rate Blood Pressure 117/62 111/69 Pulse Oximetry Body Mass Index 52.4 Labs Results: 07/23/20 17:09 07/23/20 17:09 Imaging Radiology Impressions: ITS Impressions Head CT 07/27/20 00:00 IMPRESSION: 1. No acute intracranial hemorrhage or mass effect. 2. Soft tissue injury and swelling along the anterior calvarium. Medications Medications Current Medications Generic Name Dose Route Start Last Admin Trade Name Griffinq PRN Reason Stop Dose Admin Acetaminophen 650 mg 07/24/20 01:00 08/12/20 17:25 Acetaminophen 325 Mg Tablet PO 650 mg Q6H PRN Administration pain Acetaminophen 650 mg 08/12/20 08:32 Acetaminophen 325 Mg Tablet PO ONCE PRN Pain, Mild (Pain Scale 1-3) Al Hydroxide/Mg Hydroxide 30 ml 07/24/20 18:37 08/02/20 10:01 Magnesium Hydrox/Alum Hydrox 30 Ml Oral.Susp PO 30 ml Q6H PRN Administration Heartburn/Nausea Albuterol Sulfate 2 puff 07/24/20 00:20 08/10/20 12:08 Albuterol Sulfate 90 Mcg 8 Gm Inhaler INHALE 2 puff Q4H PRN Administration Wheezing Benzocaine 1 appl 07/29/20 13:57 08/01/20 18:17 Benzocaine 10 % Oral Gel 9 Gm Tube MUCOUS MEM 1 appl QID PRN Administration Mouth Sore Pain Protocol Bisacodyl 10 mg 08/11/20 12:23 Bisacodyl 5 Mg Tablet. PO DAILY PRN Constipation Chlorpromazine HCl 100 mg 07/30/20 11:28 08/13/20 19:45 Chlorpromazine Hcl 25 Mg Tablet PO 100 mg Q4H PRN Administration Agitation Cyproheptadine HCl 4 mg 07/29/20 21:45 08/13/20 19:44 Cyproheptadine Hcl 4 Mg Tablet PO 4 mg BEDTIME SULEIMAN Administration Docusate Sodium 200 mg 07/24/20 09:00 08/13/20 19:44 Docusate Sodium 100 Mg Capsule PO 200 mg BID SULEIMAN Administration Duloxetine HCl 60 mg 07/24/20 09:00 08/13/20 09:01 Duloxetine Hcl 60 Mg Capsule. PO 60 mg DAILY SULEIMAN Administration Gabapentin 600 mg 07/30/20 09:00 08/13/20 09:01 Gabapentin 300 Mg Capsule PO 600 mg DAILY SULEIMAN Administration Gabapentin 600 mg 07/30/20 12:00 08/13/20 12:00 Gabapentin 300 Mg Capsule PO 600 mg DAILY@1200 SULEIMAN Administration Haloperidol 5 mg 07/24/20 00:20 08/11/20 12:41 Haloperidol 5 Mg Tablet PO 5 mg BID PRN Administration psychosis Haloperidol 2 mg 07/29/20 15:00 08/13/20 19:45 Haloperidol 1 Mg Tablet PO 2 mg TID SULEIMAN Administration Hydroxyzine HCl 50 mg 07/24/20 01:06 08/11/20 23:52 Hydroxyzine Hcl 50 Mg Tablet PO 50 mg TID PRN Administration Anxiety Ibuprofen 600 mg 07/24/20 00:20 08/10/20 16:00 Ibuprofen 600 Mg Tablet PO 600 mg QID PRN Administration severe pain Lidocaine 1 patch 08/01/20 18:35 08/13/20 09:02 Lidocaine 4 % Patch Adh..Patch TRANSDERMA 1 patch DAILY SULEIMAN Administration Protocol [place] Carbonate 600 mg 08/05/20 09:00 08/13/20 09:01 [place] Carbonate Er 300 Mg Tablet.Er PO 600 mg DAILY SULEIMAN Administration Lorazepam 1 mg 08/02/20 21:46 08/13/20 19:45 Lorazepam 1 Mg Tablet PO 1 mg QID PRN Administration anxiety/restlessness Magnesium Hydroxide 30 ml 07/24/20 18:37 08/08/20 20:34 Milk Of Magnesia 30 Ml Oral.Susp PO 30 ml DAILY PRN Administration Constipation Mirtazapine 15 mg 08/11/20 21:00 08/13/20 19:45 Mirtazapine 15 Mg Tablet PO 15 mg BEDTIME SULEIMAN Administration Naltrexone HCl 50 mg 07/30/20 11:35 08/13/20 09:01 Naltrexone Hcl 50 Mg Tablet PO 50 mg DAILY SULEIMAN Administration Nicotine 21 mg 07/26/20 10:35 08/13/20 09:02 Nicotine 21 Mg Patch.Td24 TRANSDERMA 21 mg DAILY SULEIMAN Administration Olanzapine 15 mg 08/11/20 21:00 08/13/20 19:45 Olanzapine 7.5 Mg Tablet PO 15 mg BEDTIME SULEIMAN Administration Omeprazole 20 mg 07/24/20 06:30 08/13/20 09:01 Omeprazole 20 Mg Capsule.Dr PO 20 mg DAILY@0630 SULEIMAN Administration Ondansetron HCl 4 mg 08/12/20 08:32 Ondansetron Hcl 4 Mg/2 Ml Vial IVPUSH ONCE PRN Nausea and Vomiting Polyethylene Glycol 17 gm 08/10/20 21:00 08/13/20 19:46 Polyethylene Glycol 3350 17 Gm Powd.Pack PO 17 gm BEDTIME SULEIMAN Administration Prazosin HCl 5 mg 07/27/20 21:30 08/13/20 19:44 Prazosin Hcl 5 Mg Capsule PO 5 mg BEDTIME SULEIMAN Administration Protocol Prazosin HCl 2 mg 07/30/20 12:00 08/13/20 11:59 Prazosin Hcl 1 Mg Capsule PO 2 mg DAILY@1200 SULEIMAN Administration Protocol Propranolol HCl 10 mg 08/10/20 15:00 08/13/20 19:45 Propranolol Hcl 10 Mg Tablet PO 10 mg TID SULEIMAN Administration Protocol Sodium Biphosphate/Sodium Phosphate 133 ml 08/04/20 16:30 08/04/20 16:40 Sodium Phosphate,[place]-Dibasic 133 Ml Enema [place] 133 ml ONCE PRN Administration Constipation Trazodone HCl 50 mg 07/24/20 18:37 08/11/20 23:52 Trazodone Hcl 50 Mg Tablet PO 50 mg BEDTIME PRN Administration Insomnia Allergies Allergies Allergy/AdvReac Type Severity Reaction Status Date / Time carbamazepine [From TEGRETOL] AdvReac Unknown NAUSEA & Verified 06/02/20 19:50 VOMITING topiramate [From TOPAMAX] AdvReac Unknown NAUSEA & Verified 06/02/20 19:50 VOMITING Assessment & Plan Assessment & Plan (1) GERD (gastroesophageal reflux disease): Status: Acute Code(s): K21.9 - Gastro-esophageal reflux disease without esophagitis (2) Recurrent major depression-severe: Status: Acute Code(s): F33.2 - Major depressive disorder, recurrent severe without psychotic features (3) Borderline personality disorder: Status: Acute Code(s): F60.3 - Borderline personality disorder (4) Acute post-traumatic stress disorder: Status: Acute Code(s): F43.11 - Post-traumatic stress disorder, acute Assessment and Plan: cont ect and tx plan provider mtg Greater than 50% of the session was spent on counseling and/or coordination of care
[2020-08-14] VITALS (13 sets, daily range): BP systolic 111–141; BP diastolic 60–92; PULSE 79–103; RESP 14–18; TEMP 36.2–36.9; O2SAT 97–100; BMI 52.4
--- NOTE | 2020-08-14 07:18 | P.CONAN_ITS ---
[facility] Past Medical History Medical History Adjustment disorder Anxiety Asthma Borderline personality disorder Depression GERD (gastroesophageal reflux disease) Increased BMI Intentional self-harm PTSD (post-traumatic stress disorder) Recurrent major depression-severe Schizoaffective disorder Self-harming behavior Suicidal ideation Functional capacity: independent ambulation Social History Social History Household Members: Other Household Members Other:: [facility] Housing: House Do you presently have visiting nurse or other home services: No Alcohol intake: unknown Smoking Status: Current every day smoker Tobacco Type: Cigarette Packs Per Day: 0.5 Cigarettes Per Day: 10.0 Years Smoked: 15 Smoked in Last 30 Days: Yes Patient Interested in Nicotine Replacement: Yes Patient Given Instructions on How to Stop Smoking: No Second Hand Smoke Exposure: No Use of substances other than those prescribed or required for medical reasons: Yes Substance Use Type: Marijuana Substance Use Frequency: Daily Last Used Substance: Days (ago) Currently Displaying Signs/Symptoms of Drug Intoxication Withdrawal: No Any prior treatment program specific to substance use: No Have you been hit, kicked, punched, or otherwise hurt by someone within the past year? If so, by whom?: No Is there a partner from a previous relationship who is making you feel unsafe now?: No Are you made to feel afraid or neglected: No Spiritual Healthcare Practices: none Gnosticism Healthcare Practices: none Cultural Healthcare Practices: none Advance Directives: No Advance Directives Information Provided: Yes Suicidal Behavior: Self-injurious behavior Access to Firearms: No Do you have thoughts of harming others: None Do you have a plan to hurt others: No Plan Recently lost weight without trying: Unsure service: No Meds Allergies Allergy/AdvReac Type Severity Reaction Status Date / Time carbamazepine [From TEGRETOL] AdvReac Unknown NAUSEA & Verified 06/02/20 19:50 VOMITING topiramate [From TOPAMAX] AdvReac Unknown NAUSEA & Verified 06/02/20 19:50 VOMITING Home Medications Medication Instructions Recorded Confirmed Type albuterol sulfate 2 puff INHALATION Q4-6H PRN 05/15/20 07/23/20 History cetirizine 10 mg PO DAILY 05/15/20 07/23/20 History chlorpromazine 150 mg PO Q4H PRN 05/15/20 07/23/20 History docusate sodium 200 mg PO BID 05/15/20 07/23/20 History duloxetine 60 mg PO DAILY 05/15/20 07/23/20 History gabapentin 600 mg PO BEDTIME 05/15/20 07/23/20 History haloperidol decanoate 100 mg IM Q4W 05/15/20 07/03/20 History hydroxyzine pamoate 50 mg PO TID PRN 05/15/20 07/23/20 History lithium carbonate 600 mg PO BEDTIME 05/15/20 07/23/20 History olanzapine 20 mg PO BEDTIME 05/15/20 07/23/20 History omeprazole 20 mg PO DAILY@0630 05/15/20 07/23/20 History prazosin 5 mg PO BEDTIME 05/15/20 07/23/20 History acetaminophen 650 mg PO Q6H PRN 06/02/20 07/23/20 History trazodone 100 mg PO BEDTIME 06/02/20 07/23/20 History zolpidem 12.5 mg PO BEDTIME 06/02/20 07/23/20 History haloperidol 1 tab PO BID PRN 06/24/20 07/23/20 History ibuprofen 1 tab PO QID PRN 06/24/20 07/23/20 History lorazepam 1 tab PO QID PRN 06/24/20 07/23/20 History quetiapine 400 mg PO BEDTIME 06/24/20 07/23/20 History gabapentin 400 mg PO QAM 07/03/20 07/23/20 History gabapentin 400 mg PO QNOON 07/03/20 07/23/20 History Exam Exam Date and Time: August 14, 2020717 Height,Weight and Vital Signs: Height 4 ft 11 in Weight 117.8 kg Last Vital Signs Temp 97.6 F 08/14/20 06:30 Pulse 103 H 08/14/20 06:30 Resp 18 08/14/20 06:30 BP 137/92 H 08/14/20 06:30 Pulse Ox 100 08/14/20 06:30 Pertinent Lab Results Pertinent Lab Results: Laboratory Tests 07/23/20 07/23/20 07/23/20 16:55 16:55 17:09 WBC 7.7 RBC 3.95 L Hgb 10.9 L Hct 35.1 L MCV 88.9 MCH 27.6 MCHC 31.1 RDW 16.4 H Plt Count 294 MPV 10.3 Immature Gran % (Auto) 0.3 Neut % (Auto) 56.8 Lymph % (Auto) 37.1 [place] % (Auto) 5.3 Eos % (Auto) 0.1 Baso % (Auto) 0.4 Lymph # (Auto) 2.9 [place] # (Auto) 0.4 Eos # (Auto) 0.0 Baso # (Auto) 0.0 Abs Immat Gran (auto) 0.02 Absolute Neuts (auto) 4.4 Absolute Nucleated RBC 0.000 Nucleated RBC % (auto) 0.0 Sodium Potassium Chloride Carbon Dioxide Anion Gap BUN Creatinine Estim Creat Clear Calc Estimated GFR Random Glucose Calcium Total Bilirubin AST ALT Alkaline Phosphatase Total Protein Albumin Urine Color Urine Appearance Urine pH Ur Specific [place] Urine Protein Urine Glucose (UA) Urine Ketones Urine Blood Urine Nitrite Ur Leukocyte Esterase Urine RBC Urine WBC Ur Squamous Epith Cells Urine Bacteria Urine Test NEGATIVE Salicylates Urine Opiates Screen Not Detected Acetaminophen Ur Barbiturates Screen Not Detected Ur Phencyclidine Scrn Not Detected Ur Amphetamines Screen Not Detected U Benzodiazepines Scrn Not Detected [place] Urine Cocaine Screen Not Detected U Marijuana (THC) Screen POSITIVE H Ethyl Alcohol COVID-19 (RAFAL) COVID-19 Clin Com 07/23/20 07/23/20 07/24/20 17:09 17:09 07:51 WBC RBC Hgb Hct MCV MCH MCHC RDW Plt Count MPV Immature Gran % (Auto) Neut % (Auto) Lymph % (Auto) [place] % (Auto) Eos % (Auto) Baso % (Auto) Lymph # (Auto) [place] # (Auto) Eos # (Auto) Baso # (Auto) Abs Immat Gran (auto) Absolute Neuts (auto) Absolute Nucleated RBC Nucleated RBC % (auto) Sodium 138 Potassium 4.6 Chloride 107 Carbon Dioxide 24 Anion Gap 12 BUN 7 L Creatinine 0.79 Estim Creat Clear Calc 133.8 Estimated GFR > 60 Random Glucose 84 Calcium 8.6 Total Bilirubin 0.2 AST 12 ALT 14 Alkaline Phosphatase 73 Total Protein 6.9 Albumin 4.3 Urine Color Urine Appearance Urine pH Ur Specific [place] Urine Protein Urine Glucose (UA) Urine Ketones Urine Blood Urine Nitrite Ur Leukocyte Esterase Urine RBC Urine WBC Ur Squamous Epith Cells Urine Bacteria Urine Test Salicylates < 5.0 L Urine Opiates Screen Acetaminophen < 1 Ur Barbiturates Screen Ur Phencyclidine Scrn Ur Amphetamines Screen U Benzodiazepines Scrn [place] Urine Cocaine Screen U Marijuana (THC) Screen Ethyl Alcohol < 10 COVID-19 (RAFAL) Negative COVID-19 Clin Com See Note 07/27/20 08/01/20 08:03 21:18 WBC RBC Hgb Hct MCV MCH MCHC RDW Plt Count MPV Immature Gran % (Auto) Neut % (Auto) Lymph % (Auto) [place] % (Auto) Eos % (Auto) Baso % (Auto) Lymph # (Auto) [place] # (Auto) Eos # (Auto) Baso # (Auto) Abs Immat Gran (auto) Absolute Neuts (auto) Absolute Nucleated RBC Nucleated RBC % (auto) Sodium Potassium Chloride Carbon Dioxide Anion Gap BUN Creatinine Estim Creat Clear Calc Estimated GFR Random Glucose Calcium Total Bilirubin AST ALT Alkaline Phosphatase Total Protein Albumin Urine Color STRAW Urine Appearance CLEAR Urine pH 6.0 Ur Specific [place] 1.015 Urine Protein NEG Urine Glucose (UA) NEG Urine Ketones NEG Urine Blood TRACE Urine Nitrite NEG Ur Leukocyte Esterase NEG Urine RBC 1-4 Urine WBC 0-2 Ur Squamous Epith Cells 2+ Urine Bacteria TRACE Urine Test Salicylates Urine Opiates Screen Acetaminophen Ur Barbiturates Screen Ur Phencyclidine Scrn Ur Amphetamines Screen U Benzodiazepines Scrn [place] 0.54 L Urine Cocaine Screen U Marijuana (THC) Screen Ethyl Alcohol COVID-19 (ARFAL) COVID-19 Clin Com Airway Mallampati Class: II TM Dist: >3cm Neck ROM: Full Heart: RRR Lungs: CTA
--- NOTE | 2020-08-14 07:32 | HO.ECTPROC ---
ECT Procedure Note Diagnosis/Treatment Diagnosis: Major Depressive Disorder Previous ECT Date: 08/12/20 Current Treatment Number: 4 Treatment: Series Interval Clinical Notes: PATIENT IS SHOWING IMPROVEMENT NO COMPLAINTS OF SIDE EFFECTS ECT Settings Device: THYMATRON DGx Electrode Placement: Bitemporal Program/Pulse Width: 0.50 Energy Percent: 100 Seizure Duration By EEG (in seconds): 18 Medications Administration General Anesthetic: Etomidate (14) Muscle Relaxant: Succinylcholine (100) Ancillary Medications Anti-emetics: Zofran - Pre ECT Miscillaneous Medications: Propofol and Flumazenil Airway Management Airway Management: Bag Mask Ventilation Treatment Recommendations No Changes Recommended: No change
[2020-08-14] MEDS: Docusate Sodium 100 MG CAPSULE 200 MG PO ×2 (09:01→20:21)
[2020-08-14] MEDS: Lithium Carbonate ER 300 MG TABLET.ER 600 MG PO (09:02)
[2020-08-14] MEDS: Gabapentin 300 MG CAPSULE 600 MG PO ×2 (09:02→11:21)
[2020-08-14] MEDS: DULoxetine HCl 60 MG CAPSULE.DR PO (09:02)
[2020-08-14] MEDS: Omeprazole 20 MG CAPSULE.DR PO (09:02)
[2020-08-14] MEDS: HaloperidoL 1 MG TABLET 2 MG PO ×3 (09:02→20:22)
[2020-08-14] MEDS: Nicotine 21 MG PATCH.TD24 TRANSDERMA (09:03)
[2020-08-14] MEDS: Propranolol HCL 10 MG TABLET PO ×3 (09:03→20:23)
[2020-08-14] MEDS: Lidocaine 4 % Patch ADH..PATCH 1 PATCH TRANSDERMA (09:03)
[2020-08-14] MEDS: Naltrexone HCl 50 MG TABLET PO (09:03)
[2020-08-14] MEDS: Ibuprofen 600 MG TABLET PO (09:33)
--- NOTE | 2020-08-14 09:48 | HO.POSTANES ---
Post Anesthesia Evaluation Post Anesthesia Evaluation Vital Signs: Vital Signs Temp Pulse Resp BP Pulse Ox 08/14/20 09:03 88 111/69 08/14/20 08:25 97.2 F 88 14 111/69 99 08/14/20 08:03 93 16 115/72 98 08/14/20 07:48 99 16 132/76 97 08/14/20 07:43 89 15 134/81 97 08/14/20 07:38 84 17 126/80 97 08/14/20 07:33 98.0 F 91 16 136/81 98 08/14/20 06:30 97.6 F 103 H 18 137/92 H 100 08/14/20 05:50 98.1 F 79 18 141/89 H 97 Anesthesia: General Mental Status: Awake Pain Control: Satisfactory Nausea/Vomiting: None Hydration: Adequate Anesthesia-Related Issues: No Anes. Related Issues
[2020-08-14] MEDS: Prazosin HCL 1 MG CAPSULE 2 MG PO (11:21)
[2020-08-14] MEDS: LORazepam 1 MG TABLET PO (16:50)
[2020-08-14] MEDS: chlorproMAZINE HCl 25 MG TABLET 100 MG PO (16:50)
[2020-08-14] MEDS: OLANZapine 7.5 MG TABLET 15 MG PO (20:21)
[2020-08-14] MEDS: Cyproheptadine HCl 4 MG TABLET PO (20:22)
[2020-08-14] MEDS: Mirtazapine 15 MG TABLET PO (20:22)
[2020-08-14] MEDS: Prazosin HCL 5 MG CAPSULE PO (20:23)
--- NOTE | 2020-08-14 22:56 | HO.PSYCHPN ---
Subjective Subjective Date of Service: 08/14/20 Reason For Visit: Depression Subjective Notes: Conditional Voluntary Interim History: pt upset after mtg with outpt staff has been stabilizing Medication Compliance: Yes Mental Status Exam Mental Status Exam Patient Appearance: Appropriate Patient Orientation: Person, Place, Time and Situation Level of Consciousness: Awake Patient Behavior: Appropriate, Cooperative and Anxious Mood Description: Constricted, Flat and Sad Affect Description: Withdrawn, Constricted, Depressed, Blunted, Flat, Sad and Apprehensive Ability to Follow Directions: Fair Speech Pattern: Clear and Soft-Spoken Thought Content: positive for Perseveration Depressive Symptoms: Increased Anxiety, Diff. Making Decisions, Increased Irritability, Difficulty Sleeping, Sleeping More Than Usual, Feelings of Worthlessness, Hopelessness, Unhappiness, Increased Fatigue, Loss of Energy and Difficulty Concentrating Judgement: Poor Diagnostics Vital Signs (24Hr): Vital Signs - 24 hr 08/14/20 05:50 08/14/20 06:30 08/14/20 07:33 Temperature 98.1 F 97.6 F 98.0 F Pulse Rate 79 103 H 91 Respiratory Rate 18 18 16 Blood Pressure 141/89 H 137/92 H 136/81 Pulse Oximetry 97 100 98 08/14/20 07:38 08/14/20 07:43 08/14/20 07:48 Temperature Pulse Rate 84 89 99 Respiratory Rate 17 15 16 Blood Pressure 126/80 134/81 132/76 Pulse Oximetry 97 97 97 08/14/20 08:03 08/14/20 08:25 08/14/20 09:03 Temperature 97.2 F Pulse Rate 93 88 88 Respiratory Rate 16 14 Blood Pressure 115/72 111/69 111/69 Pulse Oximetry 98 99 08/14/20 11:21 08/14/20 14:00 08/14/20 20:23 Temperature Pulse Rate 82 82 95 Respiratory Rate Blood Pressure 117/65 117/65 116/60 Pulse Oximetry Body Mass Index 52.4 Labs Results: 07/23/20 17:09 07/23/20 17:09 Imaging Radiology Impressions: ITS Impressions Head CT 07/27/20 00:00 IMPRESSION: 1. No acute intracranial hemorrhage or mass effect. 2. Soft tissue injury and swelling along the anterior calvarium. Medications Medications Current Medications Generic Name Dose Route Start Last Admin Trade Name Freq PRN Reason Stop Dose Admin Acetaminophen 650 mg 07/24/20 01:00 08/12/20 17:25 Acetaminophen 325 Mg Tablet PO 650 mg Q6H PRN Administration pain Al Hydroxide/Mg Hydroxide 30 ml 07/24/20 18:37 08/02/20 10:01 Magnesium Hydrox/Alum Hydrox 30 Ml Oral.Susp PO 30 ml Q6H PRN Administration Heartburn/Nausea Albuterol Sulfate 2 puff 07/24/20 00:20 08/10/20 12:08 Albuterol Sulfate 90 Mcg 8 Gm Inhaler INHALE 2 puff Q4H PRN Administration Wheezing Benzocaine 1 appl 07/29/20 13:57 08/01/20 18:17 Benzocaine 10 % Oral Gel 9 Gm Tube MUCOUS MEM 1 appl QID PRN Administration Mouth Sore Pain Protocol Bisacodyl 10 mg 08/11/20 12:23 Bisacodyl 5 Mg Tablet. PO DAILY PRN Constipation Chlorpromazine HCl 100 mg 07/30/20 11:28 08/14/20 16:50 Chlorpromazine Hcl 25 Mg Tablet PO 100 mg Q4H PRN Administration Agitation Cyproheptadine HCl 4 mg 07/29/20 21:45 08/14/20 20:22 Cyproheptadine Hcl 4 Mg Tablet PO 4 mg BEDTIME SULEIMAN Administration Docusate Sodium 200 mg 07/24/20 09:00 08/14/20 20:21 Docusate Sodium 100 Mg Capsule PO 200 mg BID SULEIMAN Administration Duloxetine HCl 60 mg 07/24/20 09:00 08/14/20 09:02 Duloxetine Hcl 60 Mg Capsule. PO 60 mg DAILY SULEIMAN Administration Gabapentin 600 mg 07/30/20 09:00 08/14/20 09:02 Gabapentin 300 Mg Capsule PO 600 mg DAILY SULEIMAN Administration Gabapentin 600 mg 07/30/20 12:00 08/14/20 11:21 Gabapentin 300 Mg Capsule PO 600 mg DAILY@1200 SULEIMAN Administration Haloperidol 5 mg 07/24/20 00:20 08/11/20 12:41 Haloperidol 5 Mg Tablet PO 5 mg BID PRN Administration psychosis Haloperidol 2 mg 07/29/20 15:00 08/14/20 20:22 Haloperidol 1 Mg Tablet PO 2 mg TID SULEIMAN Administration Hydroxyzine HCl 50 mg 07/24/20 01:06 08/11/20 23:52 Hydroxyzine Hcl 50 Mg Tablet PO 50 mg TID PRN Administration Anxiety Ibuprofen 600 mg 07/24/20 00:20 08/14/20 09:33 Ibuprofen 600 Mg Tablet PO 600 mg QID PRN Administration severe pain Lidocaine 1 patch 08/01/20 18:35 08/14/20 09:03 Lidocaine 4 % Patch Adh..Patch TRANSDERMA 1 patch DAILY SULEIMAN Administration Protocol [place] Carbonate 600 mg 08/05/20 09:00 08/14/20 09:02 [place] Carbonate Er 300 Mg Tablet.Er PO 600 mg DAILY SULEIMAN Administration Lorazepam 1 mg 08/02/20 21:46 08/14/20 16:50 Lorazepam 1 Mg Tablet PO 1 mg QID PRN Administration anxiety/restlessness Magnesium Hydroxide 30 ml 07/24/20 18:37 08/08/20 20:34 Milk Of Magnesia 30 Ml Oral.Susp PO 30 ml DAILY PRN Administration Constipation Mirtazapine 15 mg 08/11/20 21:00 08/14/20 20:22 Mirtazapine 15 Mg Tablet PO 15 mg BEDTIME SULEIMAN Administration Naltrexone HCl 50 mg 07/30/20 11:35 08/14/20 09:03 Naltrexone Hcl 50 Mg Tablet PO 50 mg DAILY SULEIMAN Administration Nicotine 21 mg 07/26/20 10:35 08/14/20 09:03 Nicotine 21 Mg Patch.Td24 TRANSDERMA 21 mg DAILY SULEIMAN Administration Olanzapine 15 mg 08/11/20 21:00 08/14/20 20:21 Olanzapine 7.5 Mg Tablet PO 15 mg BEDTIME SULEIMAN Administration Omeprazole 20 mg 07/24/20 06:30 08/14/20 09:02 Omeprazole 20 Mg Capsule.Dr PO 20 mg DAILY@0630 SULEIMAN Administration Ondansetron HCl 4 mg 08/12/20 08:32 Ondansetron Hcl 4 Mg/2 Ml Vial IVPUSH ONCE PRN Nausea and Vomiting Ondansetron HCl 4 mg 08/14/20 07:26 Ondansetron Hcl 4 Mg/2 Ml Vial IVPUSH ONCE PRN Nausea and Vomiting Polyethylene Glycol 17 gm 08/10/20 21:00 08/13/20 19:46 Polyethylene Glycol 3350 17 Gm Powd.Pack PO 17 gm BEDTIME SULEIMAN Administration Prazosin HCl 5 mg 07/27/20 21:30 08/14/20 20:23 Prazosin Hcl 5 Mg Capsule PO 5 mg BEDTIME SULEIMAN Administration Protocol Prazosin HCl 2 mg 07/30/20 12:00 08/14/20 11:21 Prazosin Hcl 1 Mg Capsule PO 2 mg DAILY@1200 [facility] Administration Protocol Propranolol HCl 10 mg 08/10/20 15:00 08/14/20 20:23 Propranolol Hcl 10 Mg Tablet PO 10 mg TID SULEIMAN Administration Protocol Sodium Biphosphate/Sodium Phosphate 133 ml 08/04/20 16:30 08/04/20 16:40 Sodium Phosphate,[place]-Dibasic 133 Ml Enema [place] 133 ml ONCE PRN Administration Constipation Trazodone HCl 50 mg 07/24/20 18:37 08/11/20 23:52 Trazodone Hcl 50 Mg Tablet PO 50 mg BEDTIME PRN Administration Insomnia Allergies Allergies Allergy/AdvReac Type Severity Reaction Status Date / Time carbamazepine [From TEGRETOL] AdvReac Unknown NAUSEA & Verified 06/02/20 19:50 VOMITING topiramate [From TOPAMAX] AdvReac Unknown NAUSEA & Verified 06/02/20 19:50 VOMITING Assessment & Plan Assessment & Plan (1) Recurrent major depression-severe: Status: Acute Code(s): F33.2 - Major depressive disorder, recurrent severe without psychotic features Assessment and Plan: cont ect mirtazapine (2) Borderline personality disorder: Status: Acute Code(s): F60.3 - Borderline personality disorder (3) Acute post-traumatic stress disorder: Status: Acute Code(s): F43.11 - Post-traumatic stress disorder, acute Greater than 50% of the session was spent on counseling and/or coordination of care
[2020-08-15 06:00] VITALS: BP 101/56; PULSE 82; TEMP 35.8; O2SAT 95
[2020-08-15] MEDS: Nicotine 21 MG PATCH.TD24 TRANSDERMA (08:57)
[2020-08-15] MEDS: Omeprazole 20 MG CAPSULE.DR PO (08:57)
[2020-08-15] MEDS: Lidocaine 4 % Patch ADH..PATCH 1 PATCH TRANSDERMA (08:57)
[2020-08-15] MEDS: Gabapentin 300 MG CAPSULE 600 MG PO ×2 (08:58→12:37)
[2020-08-15] MEDS: Docusate Sodium 100 MG CAPSULE 200 MG PO ×2 (08:58→20:00)
[2020-08-15 08:59] VITALS: BP 101/60; PULSE 82
[2020-08-15] MEDS: Propranolol HCL 10 MG TABLET PO ×3 (08:59→19:59)
[2020-08-15] MEDS: Lithium Carbonate ER 300 MG TABLET.ER 600 MG PO (08:59)
[2020-08-15] MEDS: Naltrexone HCl 50 MG TABLET PO (09:00)
[2020-08-15] MEDS: HaloperidoL 1 MG TABLET 2 MG PO ×3 (09:00→19:59)
[2020-08-15] MEDS: DULoxetine HCl 60 MG CAPSULE.DR PO (10:52)
[2020-08-15 12:38] VITALS: BP 97/61; PULSE 77
[2020-08-15] MEDS: Prazosin HCL 1 MG CAPSULE 2 MG PO (12:38)
[2020-08-15 14:27] VITALS: BP 97/61; PULSE 62
[2020-08-15] MEDS: LORazepam 1 MG TABLET PO (18:19)
[2020-08-15] MEDS: chlorproMAZINE HCl 25 MG TABLET 100 MG PO (18:19)
[2020-08-15] MEDS: HaloperidoL 5 MG TABLET PO (18:20)
[2020-08-15 19:59] VITALS: BP 116/61; PULSE 97
[2020-08-15] MEDS: Mirtazapine 15 MG TABLET PO (19:59)
[2020-08-15 20:00] VITALS: BP 116/61; PULSE 97; TEMP 36.6
[2020-08-15] MEDS: Prazosin HCL 5 MG CAPSULE PO (20:00)
[2020-08-15] MEDS: OLANZapine 7.5 MG TABLET 15 MG PO (20:00)
[2020-08-15] MEDS: Cyproheptadine HCl 4 MG TABLET PO (20:01)
--- NOTE | 2020-08-15 23:30 | HO.PSYCHPN ---
Subjective Subjective Date of Service: 08/15/20 Reason For Visit: Depression Subjective Notes: Conditional Voluntary Interim History: patient had been more depressed feeling rejected and demoralized by her interaction with her PHN team remains on one-to-one for safety Medication Compliance: Yes Mental Status Exam Mental Status Exam Patient Appearance: Appropriate Patient Orientation: Person, Place, Time and Situation Level of Consciousness: Awake Patient Behavior: Appropriate, Cooperative and Anxious Mood Description: Constricted, Flat and Sad Affect Description: Withdrawn, Constricted, Depressed, Blunted, Flat, Sad and Apprehensive Ability to Follow Directions: Fair Speech Pattern: Clear and Soft-Spoken Thought Content: positive for Perseveration Depressive Symptoms: Increased Anxiety, Diff. Making Decisions, Increased Irritability, Difficulty Sleeping, Sleeping More Than Usual, Feelings of Worthlessness, Hopelessness, Unhappiness, Increased Fatigue, Loss of Energy and Difficulty Concentrating Judgement: Poor Diagnostics Vital Signs (24Hr): Vital Signs - 24 hr 08/15/20 06:00 08/15/20 08:59 08/15/20 12:38 Temperature 96.5 F L Pulse Rate 82 82 77 Blood Pressure 101/56 L 101/60 97/61 Pulse Oximetry 95 08/15/20 14:27 08/15/20 19:59 08/15/20 20:00 Temperature 97.9 F Pulse Rate 62 97 97 Blood Pressure 97/61 116/61 116/61 Pulse Oximetry Body Mass Index 52.4 Labs Results: 07/23/20 17:09 07/23/20 17:09 Imaging Radiology Impressions: ITS Impressions Head CT 07/27/20 00:00 IMPRESSION: 1. No acute intracranial hemorrhage or mass effect. 2. Soft tissue injury and swelling along the anterior calvarium. Medications Medications Current Medications Generic Name Dose Route Start Last Admin Trade Name Freq PRN Reason Stop Dose Admin Acetaminophen 650 mg 07/24/20 01:00 08/12/20 17:25 Acetaminophen 325 Mg Tablet PO 650 mg Q6H PRN Administration pain Al Hydroxide/Mg Hydroxide 30 ml 07/24/20 18:37 08/02/20 10:01 Magnesium Hydrox/Alum Hydrox 30 Ml Oral.Susp PO 30 ml Q6H PRN Administration Heartburn/Nausea Albuterol Sulfate 2 puff 07/24/20 00:20 08/10/20 12:08 Albuterol Sulfate 90 Mcg 8 Gm Inhaler INHALE 2 puff Q4H PRN Administration Wheezing Benzocaine 1 appl 07/29/20 13:57 08/01/20 18:17 Benzocaine 10 % Oral Gel 9 Gm Tube MUCOUS MEM 1 appl QID PRN Administration Mouth Sore Pain Protocol Bisacodyl 10 mg 08/11/20 12:23 Bisacodyl 5 Mg Tablet. PO DAILY PRN Constipation Chlorpromazine HCl 100 mg 07/30/20 11:28 08/15/20 18:19 Chlorpromazine Hcl 25 Mg Tablet PO 100 mg Q4H PRN Administration Agitation Cyproheptadine HCl 4 mg 07/29/20 21:45 08/15/20 20:01 Cyproheptadine Hcl 4 Mg Tablet PO 4 mg BEDTIME SULEIMAN Administration Docusate Sodium 200 mg 07/24/20 09:00 08/15/20 20:00 Docusate Sodium 100 Mg Capsule PO 200 mg BID SULEIMAN Administration Duloxetine HCl 60 mg 07/24/20 09:00 08/15/20 10:52 Duloxetine Hcl 60 Mg Capsule. PO 60 mg DAILY SULEIMAN Administration Gabapentin 600 mg 07/30/20 09:00 08/15/20 08:58 Gabapentin 300 Mg Capsule PO 600 mg DAILY SULEIMAN Administration Gabapentin 600 mg 07/30/20 12:00 08/15/20 12:37 Gabapentin 300 Mg Capsule PO 600 mg DAILY@1200 SULEIMAN Administration Haloperidol 5 mg 07/24/20 00:20 08/15/20 18:20 Haloperidol 5 Mg Tablet PO 5 mg BID PRN Administration psychosis Haloperidol 2 mg 07/29/20 15:00 08/15/20 19:59 Haloperidol 1 Mg Tablet PO 2 mg TID SULEIMAN Administration Hydroxyzine HCl 50 mg 07/24/20 01:06 08/11/20 23:52 Hydroxyzine Hcl 50 Mg Tablet PO 50 mg TID PRN Administration Anxiety Ibuprofen 600 mg 07/24/20 00:20 08/14/20 09:33 Ibuprofen 600 Mg Tablet PO 600 mg QID PRN Administration severe pain Lidocaine 1 patch 08/01/20 18:35 08/15/20 08:57 Lidocaine 4 % Patch Adh..Patch TRANSDERMA 1 patch DAILY SULEIMAN Administration Protocol [place] Carbonate 600 mg 08/05/20 09:00 08/15/20 08:59 [place] Carbonate Er 300 Mg Tablet.Er PO 600 mg DAILY SULEIMAN Administration Lorazepam 1 mg 08/02/20 21:46 08/15/20 18:19 Lorazepam 1 Mg Tablet PO 1 mg QID PRN Administration anxiety/restlessness Magnesium Hydroxide 30 ml 07/24/20 18:37 08/08/20 20:34 Milk Of Magnesia 30 Ml Oral.Susp PO 30 ml DAILY PRN Administration Constipation Mirtazapine 15 mg 08/11/20 21:00 08/15/20 19:59 Mirtazapine 15 Mg Tablet PO 15 mg BEDTIME SULEIMAN Administration Naltrexone HCl 50 mg 07/30/20 11:35 08/15/20 09:00 Naltrexone Hcl 50 Mg Tablet PO 50 mg DAILY SULEIMAN Administration Nicotine 21 mg 07/26/20 10:35 08/15/20 08:57 Nicotine 21 Mg Patch.Td24 TRANSDERMA 21 mg DAILY SULEIMAN Administration Olanzapine 15 mg 08/11/20 21:00 08/15/20 20:00 Olanzapine 7.5 Mg Tablet PO 15 mg BEDTIME SULEIMAN Administration Omeprazole 20 mg 07/24/20 06:30 08/15/20 08:57 Omeprazole 20 Mg Capsule.Dr PO 20 mg DAILY@0630 SULEIMAN Administration Ondansetron HCl 4 mg 08/12/20 08:32 Ondansetron Hcl 4 Mg/2 Ml Vial IVPUSH ONCE PRN Nausea and Vomiting Ondansetron HCl 4 mg 08/14/20 07:26 Ondansetron Hcl 4 Mg/2 Ml Vial IVPUSH ONCE PRN Nausea and Vomiting Polyethylene Glycol 17 gm 08/10/20 21:00 08/15/20 20:17 Polyethylene Glycol 3350 17 Gm Powd.Pack PO Not Given BEDTIME SULEIMAN Prazosin HCl 5 mg 07/27/20 21:30 08/15/20 20:00 Prazosin Hcl 5 Mg Capsule PO 5 mg BEDTIME SULEIMAN Administration Protocol Prazosin HCl 2 mg 07/30/20 12:00 08/15/20 12:38 Prazosin Hcl 1 Mg Capsule PO 2 mg DAILY@1200 SULEIMAN Administration Protocol Propranolol HCl 10 mg 08/10/20 15:00 08/15/20 19:59 Propranolol Hcl 10 Mg Tablet PO 10 mg TID SULEIMAN Administration Protocol Sodium Biphosphate/Sodium Phosphate 133 ml 08/04/20 16:30 08/04/20 16:40 Sodium Phosphate,[place]-Dibasic 133 Ml Enema [place] 133 ml ONCE PRN Administration Constipation Trazodone HCl 50 mg 07/24/20 18:37 08/11/20 23:52 Trazodone Hcl 50 Mg Tablet PO 50 mg BEDTIME PRN Administration Insomnia Allergies Allergies Allergy/AdvReac Type Severity Reaction Status Date / Time carbamazepine [From TEGRETOL] AdvReac Unknown NAUSEA & Verified 06/02/20 19:50 VOMITING topiramate [From TOPAMAX] AdvReac Unknown NAUSEA & Verified 06/02/20 19:50 VOMITING Assessment & Plan Assessment & Plan (1) Recurrent major depression-severe: Status: Acute Code(s): F33.2 - Major depressive disorder, recurrent severe without psychotic features Assessment and Plan: continue ECT encourage coping strategies with continue on one-to-one (2) Borderline personality disorder: Status: Acute Code(s): F60.3 - Borderline personality disorder (3) Acute post-traumatic stress disorder: Status: Acute Code(s): F43.11 - Post-traumatic stress disorder, acute Greater than 50% of the session was spent on counseling and/or coordination of care
[2020-08-16] MEDS: Nicotine 21 MG PATCH.TD24 TRANSDERMA (09:22)
[2020-08-16] MEDS: Lidocaine 4 % Patch ADH..PATCH 1 PATCH TRANSDERMA (09:22)
[2020-08-16] MEDS: Naltrexone HCl 50 MG TABLET PO (09:23)
[2020-08-16] MEDS: HaloperidoL 1 MG TABLET 2 MG PO ×3 (09:23→21:20)
[2020-08-16] MEDS: DULoxetine HCl 60 MG CAPSULE.DR PO (09:23)
[2020-08-16] MEDS: Lithium Carbonate ER 300 MG TABLET.ER 600 MG PO (09:23)
[2020-08-16] MEDS: Gabapentin 300 MG CAPSULE 600 MG PO ×2 (09:24→12:24)
[2020-08-16] MEDS: Omeprazole 20 MG CAPSULE.DR PO (09:25)
[2020-08-16] MEDS: Docusate Sodium 100 MG CAPSULE 200 MG PO ×2 (09:25→21:19)
[2020-08-16 09:45] VITALS: BP 106/60; PULSE 75
[2020-08-16] MEDS: Propranolol HCL 10 MG TABLET PO ×3 (09:45→21:22)
[2020-08-16 12:24] VITALS: BP 110/76; PULSE 107
[2020-08-16] MEDS: Prazosin HCL 1 MG CAPSULE 2 MG PO (12:24)
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
[2020-08-16 14:35] VITALS: BP 118/83; PULSE 116
[2020-08-16 21:14] VITALS: BP 128/83; PULSE 92; TEMP 36.6
[2020-08-16] MEDS: OLANZapine 7.5 MG TABLET 15 MG PO (21:20)
[2020-08-16] MEDS: Cyproheptadine HCl 4 MG TABLET PO (21:20)
[2020-08-16 21:21] VITALS: BP 128/83; PULSE 92
[2020-08-16] MEDS: Mirtazapine 15 MG TABLET PO (21:21)
[2020-08-16] MEDS: Prazosin HCL 5 MG CAPSULE PO (21:21)
[2020-08-16 21:22] VITALS: BP 128/83; PULSE 92
[2020-08-16] MEDS: LORazepam 1 MG TABLET PO (23:58)
[2020-08-16] MEDS: traZODone HCL 50 MG TABLET PO (23:58)
[2020-08-16] MEDS: chlorproMAZINE HCl 25 MG TABLET 100 MG PO (23:58)
[2020-08-17] MEDS: Omeprazole 20 MG CAPSULE.DR PO (08:42)
[2020-08-17] MEDS: DULoxetine HCl 60 MG CAPSULE.DR PO (08:43)
[2020-08-17] MEDS: Gabapentin 300 MG CAPSULE 600 MG PO ×2 (08:43→12:49)
[2020-08-17] MEDS: Docusate Sodium 100 MG CAPSULE 200 MG PO ×2 (08:44→20:47)
[2020-08-17] MEDS: Naltrexone HCl 50 MG TABLET PO (08:44)
[2020-08-17] MEDS: HaloperidoL 1 MG TABLET 2 MG PO ×3 (08:44→20:48)
[2020-08-17 08:45] VITALS: BP 128/83; PULSE 92
[2020-08-17] MEDS: Propranolol HCL 10 MG TABLET PO ×3 (08:45→21:08)
[2020-08-17] MEDS: Lidocaine 4 % Patch ADH..PATCH 1 PATCH TRANSDERMA (08:46)
[2020-08-17] MEDS: Lithium Carbonate ER 300 MG TABLET.ER 600 MG PO (08:58)
[2020-08-17] MEDS: Mineral Oil/Petrolatum,White 106 GM Tube 1 APPL TOPICAL (09:14)
[2020-08-17] MEDS: Nicotine 21 MG PATCH.TD24 TRANSDERMA (09:14)
[2020-08-17 12:49] VITALS: BP 128/83; PULSE 92
[2020-08-17] MEDS: Prazosin HCL 1 MG CAPSULE 2 MG PO (12:49)
--- NOTE | 2020-08-17 13:10 | HO.PSYCHPN ---
Subjective Subjective Date of Service: 08/17/20 Reason For Visit: Depression Subjective Notes: Conditional Voluntary Interim History: Pt having difficulties with sleep, ah and ongoing si/sib but not acting on them communicating them Medication Compliance: Yes Side effects from medications: No Attending Groups: No Mental Status Exam Mental Status Exam Patient Appearance: Disheveled and Unkempt Patient Orientation: Person, Place, Time and Situation Level of Consciousness: Awake Patient Behavior: Appropriate, Cooperative and Anxious Mood Description: Calm Affect Description: Labile Patient Cognition Impaired: No Ability to Follow Directions: Good Speech Pattern: Clear Hallucinations: Auditory Delusions: Not Present Thought Process: Intact Thought Content: positive for Intact, positive for Preoccupation and positive for Suicidal Ideation Depressive Symptoms: Increased Anxiety and Difficulty Sleeping (wants hs meds scheduled not prn) Judgement: Fair Diagnostics Vital Signs (24Hr): Vital Signs - 24 hr 08/16/20 14:35 08/16/20 21:14 08/16/20 21:21 Temperature 97.8 F Pulse Rate 116 H 92 92 Blood Pressure 118/83 128/83 128/83 08/16/20 21:22 08/17/20 08:45 08/17/20 12:49 Temperature Pulse Rate 92 92 92 Blood Pressure 128/83 128/83 128/83 Body Mass Index 52.4 Labs Results: 07/23/20 17:09 07/23/20 17:09 Imaging Radiology Impressions: ITS Impressions Head CT 07/27/20 00:00 IMPRESSION: 1. No acute intracranial hemorrhage or mass effect. 2. Soft tissue injury and swelling along the anterior calvarium. Medications Medications Current Medications Generic Name Dose Route Start Last Admin Trade Name Freq PRN Reason Stop Dose Admin Acetaminophen 650 mg 07/24/20 01:00 08/12/20 17:25 Acetaminophen 325 Mg Tablet PO 650 mg Q6H PRN Administration pain Al Hydroxide/Mg Hydroxide 30 ml 07/24/20 18:37 08/02/20 10:01 Magnesium Hydrox/Alum Hydrox 30 Ml Oral.Susp PO 30 ml Q6H PRN Administration Heartburn/Nausea Albuterol Sulfate 2 puff 07/24/20 00:20 08/10/20 12:08 Albuterol Sulfate 90 Mcg 8 Gm Inhaler INHALE 2 puff Q4H PRN Administration Wheezing Benzocaine 1 appl 07/29/20 13:57 08/01/20 18:17 Benzocaine 10 % Oral Gel 9 Gm Tube MUCOUS MEM 1 appl QID PRN Administration Mouth Sore Pain Protocol Bisacodyl 10 mg 08/11/20 12:23 Bisacodyl 5 Mg Tablet. PO DAILY PRN Constipation Chlorpromazine HCl 100 mg 07/30/20 11:28 08/16/20 23:58 Chlorpromazine Hcl 25 Mg Tablet PO 100 mg Q4H PRN Administration Agitation Cyproheptadine HCl 4 mg 07/29/20 21:45 08/16/20 21:20 Cyproheptadine Hcl 4 Mg Tablet PO 4 mg BEDTIME SULEIMAN Administration Docusate Sodium 200 mg 07/24/20 09:00 08/17/20 08:44 Docusate Sodium 100 Mg Capsule PO 200 mg BID SULEIMAN Administration Duloxetine HCl 60 mg 07/24/20 09:00 08/17/20 08:43 Duloxetine Hcl 60 Mg Capsule. PO 60 mg DAILY SULEIMAN Administration Gabapentin 600 mg 07/30/20 09:00 08/17/20 08:43 Gabapentin 300 Mg Capsule PO 600 mg DAILY SULEIMAN Administration Gabapentin 600 mg 07/30/20 12:00 08/17/20 12:49 Gabapentin 300 Mg Capsule PO 600 mg DAILY@1200 SULEIMAN Administration Haloperidol 5 mg 07/24/20 00:20 08/15/20 18:20 Haloperidol 5 Mg Tablet PO 5 mg BID PRN Administration psychosis Haloperidol 2 mg 07/29/20 15:00 08/17/20 08:44 Haloperidol 1 Mg Tablet PO 2 mg TID SULEIMAN Administration Hydroxyzine HCl 50 mg 07/24/20 01:06 08/11/20 23:52 Hydroxyzine Hcl 50 Mg Tablet PO 50 mg TID PRN Administration Anxiety Ibuprofen 600 mg 07/24/20 00:20 08/14/20 09:33 Ibuprofen 600 Mg Tablet PO 600 mg QID PRN Administration severe pain Lidocaine 1 patch 08/01/20 18:35 08/17/20 08:46 Lidocaine 4 % Patch Adh..Patch TRANSDERMA 1 patch DAILY SULEIMAN Administration Protocol [place] Carbonate 600 mg 08/05/20 09:00 08/17/20 08:58 [place]esian Carbonate Er 300 Mg Tablet.Er PO 600 mg DAILY SULEIMAN Administration Lorazepam 1 mg 08/02/20 21:46 08/16/20 23:58 Lorazepam 1 Mg Tablet PO 1 mg QID PRN Administration anxiety/restlessness Magnesium Hydroxide 30 ml 07/24/20 18:37 08/08/20 20:34 Milk Of Magnesia 30 Ml Oral.Susp PO 30 ml DAILY PRN Administration Constipation Mirtazapine 15 mg 08/11/20 21:00 08/16/20 21:21 Mirtazapine 15 Mg Tablet PO 15 mg BEDTIME SULEIMAN Administration Multi-Ingred Cream/Lotion/Oil/Oint 1 appl 08/16/20 21:00 08/17/20 09:14 Mineral Oil/Petrolatum,White 106 Gm Tube TOPICAL 1 appl BID SULEIMAN Administration Naltrexone HCl 50 mg 07/30/20 11:35 08/17/20 08:44 Naltrexone Hcl 50 Mg Tablet PO 50 mg DAILY SULEIMAN Administration Nicotine 21 mg 07/26/20 10:35 08/17/20 09:14 Nicotine 21 Mg Patch.Td24 TRANSDERMA 21 mg DAILY SULEIMAN Administration Olanzapine 15 mg 08/11/20 21:00 08/16/20 21:20 Olanzapine 7.5 Mg Tablet PO 15 mg BEDTIME SULEIMAN Administration Omeprazole 20 mg 07/24/20 06:30 08/17/20 08:42 Omeprazole 20 Mg Capsule. PO 20 mg DAILY@0630 SULEIMAN Administration Ondansetron HCl 4 mg 08/12/20 08:32 Ondansetron Hcl 4 Mg/2 Ml Vial IVPUSH ONCE PRN Nausea and Vomiting Ondansetron HCl 4 mg 08/14/20 07:26 Ondansetron Hcl 4 Mg/2 Ml Vial IVPUSH ONCE PRN Nausea and Vomiting Polyethylene Glycol 17 gm 08/10/20 21:00 08/16/20 21:42 Polyethylene Glycol 3350 17 Gm Powd.Pack PO Not Given BEDTIME SULEIMAN Prazosin HCl 5 mg 07/27/20 21:30 08/16/20 21:21 Prazosin Hcl 5 Mg Capsule PO 5 mg BEDTIME SULEIMAN Administration Protocol Prazosin HCl 2 mg 07/30/20 12:00 08/17/20 12:49 Prazosin Hcl 1 Mg Capsule PO 2 mg DAILY@1200 SULEIMAN Administration Protocol Propranolol HCl 10 mg 08/10/20 15:00 08/17/20 08:45 Propranolol Hcl 10 Mg Tablet PO 10 mg TID SULEIMAN Administration Protocol Sodium Biphosphate/Sodium Phosphate 133 ml 08/04/20 16:30 08/04/20 16:40 Sodium Phosphate,[place]-Dibasic 133 Ml Enema AL 133 ml ONCE PRN Administration Constipation Trazodone HCl 50 mg 07/24/20 18:37 08/16/20 23:58 Trazodone Hcl 50 Mg Tablet PO 50 mg BEDTIME PRN Administration Insomnia Allergies Allergies Allergy/AdvReac Type Severity Reaction Status Date / Time carbamazepine [From TEGRETOL] AdvReac Unknown NAUSEA & Verified 06/02/20 19:50 VOMITING topiramate [From TOPAMAX] AdvReac Unknown NAUSEA & Verified 06/02/20 19:50 VOMITING Assessment & Plan Assessment & Plan (1) Recurrent major depression-severe: Status: Acute Code(s): F33.2 - Major depressive disorder, recurrent severe without psychotic features Assessment and Plan: ongoing medication adjustments (2) Borderline personality disorder: Status: Acute Code(s): F60.3 - Borderline personality disorder (3) Suicidal ideation: Status: Acute Code(s): R45.851 - Suicidal ideations Assessment and Plan: close obs (4) Injury, self-inflicted: Status: Acute Code(s): Z72.89 - Other problems related to lifestyle Assessment and Plan: close obs discussed breathing strategies Greater than 50% of the session was spent on counseling and/or coordination of care
[2020-08-17 14:18] VITALS: BP 128/83; PULSE 92
[2020-08-17] MEDS: Fluconazole 100 MG TABLET PO (14:18)
[2020-08-17] MEDS: Magnesium Hydrox/Alum Hydrox 30 ML ORAL.SUSP PO (14:55)
[2020-08-17] MEDS: LORazepam 1 MG TABLET PO ×2 (16:34→20:47)
[2020-08-17 18:00] VITALS: BP 97/52; PULSE 92; TEMP 36.1
[2020-08-17] MEDS: Cyproheptadine HCl 4 MG TABLET PO (20:45)
[2020-08-17 20:46] VITALS: BP 97/52; PULSE 92
[2020-08-17] MEDS: OLANZapine 7.5 MG TABLET 15 MG PO (20:46)
[2020-08-17] MEDS: Prazosin HCL 5 MG CAPSULE PO (20:46)
[2020-08-17] MEDS: chlorproMAZINE HCl 100 MG TABLET PO (20:46)
[2020-08-17] MEDS: traZODone HCL 50 MG TABLET PO (20:47)
[2020-08-17] MEDS: Mirtazapine 15 MG TABLET PO (20:51)
[2020-08-17] MEDS: polyethylene glycoL 3350 17 GM POWD.PACK PO (21:04)
[2020-08-17 21:08] VITALS: BP 97/52; PULSE 92
[2020-08-18 08:17] VITALS: BP 97/56; PULSE 92; RESP 16; TEMP 36.6; O2SAT 97
[2020-08-18] MEDS: Naltrexone HCl 50 MG TABLET PO (09:11)
[2020-08-18] MEDS: Fluconazole 100 MG TABLET PO (09:11)
[2020-08-18] MEDS: HaloperidoL 1 MG TABLET 2 MG PO ×3 (09:11→20:44)
[2020-08-18] MEDS: Gabapentin 300 MG CAPSULE 600 MG PO (09:12)
[2020-08-18] MEDS: Omeprazole 20 MG CAPSULE.DR PO (09:12)
[2020-08-18] MEDS: DULoxetine HCl 60 MG CAPSULE.DR PO (09:12)
[2020-08-18] MEDS: Lithium Carbonate ER 300 MG TABLET.ER 600 MG PO (09:12)
[2020-08-18 09:13] VITALS: BP 97/56; PULSE 92
[2020-08-18] MEDS: Propranolol HCL 10 MG TABLET PO ×3 (09:13→20:43)
[2020-08-18] MEDS: Docusate Sodium 100 MG CAPSULE 200 MG PO ×2 (09:13→20:43)
[2020-08-18] MEDS: Lidocaine 4 % Patch ADH..PATCH 1 PATCH TRANSDERMA (09:16)
[2020-08-18] MEDS: Nicotine 21 MG PATCH.TD24 TRANSDERMA (09:16)
[2020-08-18] MEDS: Mineral Oil/Petrolatum,White 106 GM Tube 1 APPL TOPICAL ×2 (09:21→20:31)
[2020-08-18 11:46] VITALS: BP 97/56; PULSE 92
[2020-08-18] MEDS: Prazosin HCL 1 MG CAPSULE 2 MG PO (11:46)
--- NOTE | 2020-08-18 13:05 | P.PNPSI_ITS ---
Subjective Subjective Date of Service: 08/18/20 Reason For Visit: Depression Subjective Notes: Conditional Voluntary Interim History: Pt anxious about dc Wednesday ,some depression but also looking forward to getting back to her room, her stuff, and watching pilar plus- continues on 1:1 due to hx of sib has ECT tomorrow and knows she can't have gabapentin or lorazepam this pm/hs Medication Compliance: Yes Side effects from medications: No Attending Groups: No Review of Systems Review of Systems ongoing issues with feet callous peeling Mental Status Exam Mental Status Exam Patient Appearance: Disheveled Patient Orientation: Person, Place, Time and Situation Level of Consciousness: Awake Patient Behavior: Appropriate and Cooperative Behavior Comments: has not been self injurious despite thoughts Mood Description: Depressed and Anxious Affect Description: Constricted Patient Cognition Impaired: No Ability to Follow Directions: Good Speech Pattern: Clear Hallucinations: Auditory Delusions: Not Present Thought Process: Intact Thought Content: positive for Intact Depressive Symptoms: Thoughts of /Suicide (not new) Judgement: Fair Diagnostics Vital Signs (24Hr): Vital Signs - 24 hr 08/17/20 14:18 08/17/20 18:00 08/17/20 20:46 Temperature 96.9 F Pulse Rate 92 92 92 Respiratory Rate Blood Pressure 128/83 97/52 L 97/52 L Pulse Oximetry 08/17/20 21:08 08/18/20 08:17 08/18/20 09:13 Temperature 97.9 F Pulse Rate 92 92 92 Respiratory Rate 16 Blood Pressure 97/52 L 97/56 L 97/56 L Pulse Oximetry 97 08/18/20 11:46 Temperature Pulse Rate 92 Respiratory Rate Blood Pressure 97/56 L Pulse Oximetry Body Mass Index 52.4 Labs Results: 07/23/20 17:09 07/23/20 17:09 Imaging Radiology Impressions: ITS Impressions Head CT 07/27/20 00:00 IMPRESSION: 1. No acute intracranial hemorrhage or mass effect. 2. Soft tissue injury and swelling along the anterior calvarium. Medications Medications Current Medications Generic Name Dose Route Start Last Admin Trade Name Freq PRN Reason Stop Dose Admin Acetaminophen 650 mg 07/24/20 01:00 08/12/20 17:25 Acetaminophen 325 Mg Tablet PO 650 mg Q6H PRN Administration pain Al Hydroxide/Mg Hydroxide 30 ml 07/24/20 18:37 08/17/20 14:55 Magnesium Hydrox/Alum Hydrox 30 Ml Oral.Susp PO 30 ml Q6H PRN Administration Heartburn/Nausea Albuterol Sulfate 2 puff 07/24/20 00:20 08/10/20 12:08 Albuterol Sulfate 90 Mcg 8 Gm Inhaler INHALE 2 puff Q4H PRN Administration Wheezing Benzocaine 1 appl 07/29/20 13:57 08/01/20 18:17 Benzocaine 10 % Oral Gel 9 Gm Tube MUCOUS MEM 1 appl QID PRN Administration Mouth Sore Pain Protocol Bisacodyl 10 mg 08/11/20 12:23 Bisacodyl 5 Mg Tablet. PO DAILY PRN Constipation Chlorpromazine HCl 100 mg 08/17/20 21:00 08/17/20 20:46 Chlorpromazine Hcl 100 Mg Tablet PO 100 mg BEDTIME SULEIMAN Administration Chlorpromazine HCl 100 mg 08/17/20 13:28 Chlorpromazine Hcl 25 Mg Tablet PO Q6H PRN Agitation Cyproheptadine HCl 4 mg 07/29/20 21:45 08/17/20 20:45 Cyproheptadine Hcl 4 Mg Tablet PO 4 mg BEDTIME SULEIMAN Administration Docusate Sodium 200 mg 07/24/20 09:00 08/18/20 09:13 Docusate Sodium 100 Mg Capsule PO 200 mg BID SULEIMAN Administration Duloxetine HCl 60 mg 07/24/20 09:00 08/18/20 09:12 Duloxetine Hcl 60 Mg Capsule. PO 60 mg DAILY SULEIMAN Administration Fluconazole 100 mg 08/17/20 13:15 08/18/20 09:11 Fluconazole 100 Mg Tablet PO 08/19/20 15:00 100 mg DAILY SULEIMAN Administration Gabapentin 600 mg 07/30/20 09:00 08/18/20 09:12 Gabapentin 300 Mg Capsule PO 600 mg DAILY SULEIMAN Administration Gabapentin 600 mg 07/30/20 12:00 08/18/20 11:57 Gabapentin 300 Mg Capsule PO Not Given DAILY@1200 SULEIMAN Haloperidol 5 mg 07/24/20 00:20 08/15/20 18:20 Haloperidol 5 Mg Tablet PO 5 mg BID PRN Administration psychosis Haloperidol 2 mg 07/29/20 15:00 08/18/20 09:11 Haloperidol 1 Mg Tablet PO 2 mg TID SULEIMAN Administration Hydroxyzine HCl 50 mg 07/24/20 01:06 08/11/20 23:52 Hydroxyzine Hcl 50 Mg Tablet PO 50 mg TID PRN Administration Anxiety Ibuprofen 600 mg 07/24/20 00:20 08/14/20 09:33 Ibuprofen 600 Mg Tablet PO 600 mg QID PRN Administration severe pain Lidocaine 1 patch 08/01/20 18:35 08/18/20 09:16 Lidocaine 4 % Patch Adh..Patch TRANSDERMA 1 patch DAILY SULEIMAN Administration Protocol [place] Carbonate 600 mg 08/05/20 09:00 08/18/20 09:12 [place] Carbonate Er 300 Mg Tablet.Er PO 600 mg DAILY SULEIMAN Administration Lorazepam 1 mg 08/17/20 13:30 08/17/20 16:34 Lorazepam 1 Mg Tablet PO 1 mg TID PRN Administration Anxiety/Restlessness Lorazepam 1 mg 08/17/20 21:00 08/17/20 20:47 Lorazepam 1 Mg Tablet PO 1 mg BEDTIME SULEIMAN Administration Magnesium Hydroxide 30 ml 07/24/20 18:37 08/08/20 20:34 Milk Of Magnesia 30 Ml Oral.Susp PO 30 ml DAILY PRN Administration Constipation Mirtazapine 15 mg 08/11/20 21:00 08/17/20 20:51 Mirtazapine 15 Mg Tablet PO 15 mg BEDTIME SULEIMAN Administration Multi-Ingred Cream/Lotion/Oil/Oint 1 appl 08/16/20 21:00 08/18/20 09:21 Mineral Oil/Petrolatum,White 106 Gm Tube TOPICAL 1 appl BID SULEIMAN Administration Naltrexone HCl 50 mg 07/30/20 11:35 08/18/20 09:11 Naltrexone Hcl 50 Mg Tablet PO 50 mg DAILY SULEIMAN Administration Nicotine 21 mg 07/26/20 10:35 08/18/20 09:16 Nicotine 21 Mg Patch.Td24 TRANSDERMA 21 mg DAILY SULEIMAN Administration Olanzapine 15 mg 08/11/20 21:00 08/17/20 20:46 Olanzapine 7.5 Mg Tablet PO 15 mg BEDTIME SULEIMAN Administration Omeprazole 20 mg 07/24/20 06:30 08/18/20 09:12 Omeprazole 20 Mg Capsule.Dr PO 20 mg DAILY@0630 SULEIMAN Administration Ondansetron HCl 4 mg 08/12/20 08:32 Ondansetron Hcl 4 Mg/2 Ml Vial IVPUSH ONCE PRN Nausea and Vomiting Ondansetron HCl 4 mg 08/14/20 07:26 Ondansetron Hcl 4 Mg/2 Ml Vial IVPUSH ONCE PRN Nausea and Vomiting Polyethylene Glycol 17 gm 08/10/20 21:00 08/17/20 21:04 Polyethylene Glycol 3350 17 Gm Powd.Pack PO 17 gm BEDTIME SULEIMAN Administration Prazosin HCl 5 mg 07/27/20 21:30 08/17/20 20:46 Prazosin Hcl 5 Mg Capsule PO 5 mg BEDTIME SULEIMAN Administration Protocol Prazosin HCl 2 mg 07/30/20 12:00 08/18/20 11:46 Prazosin Hcl 1 Mg Capsule PO 2 mg DAILY@1200 SULEIMAN Administration Protocol Propranolol HCl 10 mg 08/10/20 15:00 08/18/20 09:13 Propranolol Hcl 10 Mg Tablet PO 10 mg TID SULEIMAN Administration Protocol Sodium Biphosphate/Sodium Phosphate 133 ml 08/04/20 16:30 08/04/20 16:40 Sodium Phosphate,[place]-Dibasic 133 Ml Enema [place] 133 ml ONCE PRN Administration Constipation Trazodone HCl 50 mg 08/17/20 21:00 08/17/20 20:47 Trazodone Hcl 50 Mg Tablet PO 50 mg BEDTIME SULEIMAN Administration Allergies Allergies Allergy/AdvReac Type Severity Reaction Status Date / Time carbamazepine [From TEGRETOL] AdvReac Unknown NAUSEA & Verified 06/02/20 19:50 VOMITING topiramate [From TOPAMAX] AdvReac Unknown NAUSEA & Verified 06/02/20 19:50 VOMITING Assessment & Plan Assessment & Plan (1) Recurrent major depression-severe: Status: Acute Code(s): F33.2 - Major depressive disorder, recurrent severe without psychotic features Assessment and Plan: getting ECT and medications which we discussed (2) Borderline personality disorder: Status: Acute Code(s): F60.3 - Borderline personality disorder Assessment and Plan: ongoing si/sib thoughts but controlling her impulses also has 1:1 (3) Acute post-traumatic stress disorder: Status: Chronic Code(s): F43.11 - Post-traumatic stress disorder, acute Assessment and Plan: ongoing flashbacks - ah - Greater than 50% of the session was spent on counseling and/or coordination of care
[2020-08-18 15:02] VITALS: BP 97/56; PULSE 92
[2020-08-18 17:38] VITALS: BP 110/73; PULSE 123; TEMP 36.6
[2020-08-18 20:43] VITALS: BP 112/68; PULSE 99
[2020-08-18] MEDS: chlorproMAZINE HCl 100 MG TABLET PO (20:43)
[2020-08-18] MEDS: Prazosin HCL 5 MG CAPSULE PO (20:43)
[2020-08-18] MEDS: Cyproheptadine HCl 4 MG TABLET PO (20:43)
[2020-08-18] MEDS: traZODone HCL 50 MG TABLET PO (20:44)
[2020-08-18] MEDS: OLANZapine 7.5 MG TABLET 15 MG PO (20:44)
[2020-08-18] MEDS: Mirtazapine 15 MG TABLET PO (20:44)
[2020-08-18] MEDS: Ammonium Lactate 12 % Cream 140 GM TUBE 1 APPL TOPICAL (21:01)
[2020-08-18] MEDS: Acetaminophen 325 MG TABLET 650 MG PO (21:53)
[2020-08-18] MEDS: hydrOXYzine HCL 50 MG TABLET PO (22:54)
[2020-08-19] VITALS (14 sets, daily range): BP systolic 94–136; BP diastolic 51–92; PULSE 73–109; RESP 16–20; TEMP 36.2–37.5; O2SAT 96–99; BMI 48.4
--- NOTE | 2020-08-19 07:05 | P.CONAN_ITS ---
[facility] Past Medical History Medical History Adjustment disorder Anxiety Asthma Borderline personality disorder Depression GERD (gastroesophageal reflux disease) Increased BMI Intentional self-harm PTSD (post-traumatic stress disorder) Recurrent major depression-severe Schizoaffective disorder Self-harming behavior Suicidal ideation Functional capacity: independent ambulation Social History Social History Household Members: Other Household Members Other:: senior living Housing: House Do you presently have visiting nurse or other home services: No Alcohol intake: unknown Smoking Status: Current every day smoker Tobacco Type: Cigarette Packs Per Day: 0.5 Cigarettes Per Day: 10.0 Years Smoked: 15 Smoked in Last 30 Days: Yes Patient Interested in Nicotine Replacement: Yes Patient Given Instructions on How to Stop Smoking: No Second Hand Smoke Exposure: No Use of substances other than those prescribed or required for medical reasons: Yes Substance Use Type: Marijuana Substance Use Frequency: Daily Last Used Substance: Days (ago) Currently Displaying Signs/Symptoms of Drug Intoxication Withdrawal: No Any prior treatment program specific to substance use: No Have you been hit, kicked, punched, or otherwise hurt by someone within the past year? If so, by whom?: No Is there a partner from a previous relationship who is making you feel unsafe now?: No Are you made to feel afraid or neglected: No Spiritual Healthcare Practices: none Holiness Healthcare Practices: none Cultural Healthcare Practices: none Advance Directives: No Advance Directives Information Provided: Yes Suicidal Behavior: Self-injurious behavior Access to Firearms: No Do you have thoughts of harming others: None Do you have a plan to hurt others: No Plan Recently lost weight without trying: Unsure service: No Meds Allergies Allergy/AdvReac Type Severity Reaction Status Date / Time carbamazepine [From TEGRETOL] AdvReac Unknown NAUSEA & Verified 06/02/20 19:50 VOMITING topiramate [From TOPAMAX] AdvReac Unknown NAUSEA & Verified 06/02/20 19:50 VOMITING Home Medications Medication Instructions Recorded Confirmed Type albuterol sulfate 2 puff INHALATION Q4-6H PRN 05/15/20 07/23/20 History cetirizine 10 mg PO DAILY 05/15/20 07/23/20 History chlorpromazine 150 mg PO Q4H PRN 05/15/20 07/23/20 History docusate sodium 200 mg PO BID 05/15/20 07/23/20 History duloxetine 60 mg PO DAILY 05/15/20 07/23/20 History gabapentin 600 mg PO BEDTIME 05/15/20 07/23/20 History haloperidol decanoate 100 mg IM Q4W 05/15/20 07/03/20 History hydroxyzine pamoate 50 mg PO TID PRN 05/15/20 07/23/20 History lithium carbonate 600 mg PO BEDTIME 05/15/20 07/23/20 History olanzapine 20 mg PO BEDTIME 05/15/20 07/23/20 History omeprazole 20 mg PO DAILY@0630 05/15/20 07/23/20 History prazosin 5 mg PO BEDTIME 05/15/20 07/23/20 History acetaminophen 650 mg PO Q6H PRN 06/02/20 07/23/20 History trazodone 100 mg PO BEDTIME 06/02/20 07/23/20 History zolpidem 12.5 mg PO BEDTIME 06/02/20 07/23/20 History haloperidol 1 tab PO BID PRN 06/24/20 07/23/20 History ibuprofen 1 tab PO QID PRN 06/24/20 07/23/20 History lorazepam 1 tab PO QID PRN 06/24/20 07/23/20 History quetiapine 400 mg PO BEDTIME 06/24/20 07/23/20 History gabapentin 400 mg PO QAM 07/03/20 07/23/20 History gabapentin 400 mg PO QNOON 07/03/20 07/23/20 History Exam Exam Date and Time: August 19, 2020704 Height,Weight and Vital Signs: Height 4 ft 11 in Weight 108.862 kg Last Vital Signs Temp 98.3 F 08/19/20 06:24 Pulse 91 08/19/20 06:24 Resp 20 08/19/20 06:24 BP 134/92 H 08/19/20 06:24 Pulse Ox 97 08/19/20 06:24 Pertinent Lab Results Pertinent Lab Results: Laboratory Tests 07/23/20 07/23/20 07/23/20 16:55 16:55 17:09 WBC 7.7 RBC 3.95 L Hgb 10.9 L Hct 35.1 L MCV 88.9 MCH 27.6 MCHC 31.1 RDW 16.4 H Plt Count 294 MPV 10.3 Immature Gran % (Auto) 0.3 Neut % (Auto) 56.8 Lymph % (Auto) 37.1 [place] % (Auto) 5.3 Eos % (Auto) 0.1 Baso % (Auto) 0.4 Lymph # (Auto) 2.9 [place] # (Auto) 0.4 Eos # (Auto) 0.0 Baso # (Auto) 0.0 Abs Immat Gran (auto) 0.02 Absolute Neuts (auto) 4.4 Absolute Nucleated RBC 0.000 Nucleated RBC % (auto) 0.0 Sodium Potassium Chloride Carbon Dioxide Anion Gap BUN Creatinine Estim Creat Clear Calc Estimated GFR Random Glucose Calcium Total Bilirubin AST ALT Alkaline Phosphatase Total Protein Albumin Urine Color Urine Appearance Urine pH Ur Specific [place] Urine Protein Urine Glucose (UA) Urine Ketones Urine Blood Urine Nitrite Ur Leukocyte Esterase Urine RBC Urine WBC Ur Squamous Epith Cells Urine Bacteria Urine Test NEGATIVE Salicylates Urine Opiates Screen Not Detected Acetaminophen Ur Barbiturates Screen Not Detected Ur Phencyclidine Scrn Not Detected Ur Amphetamines Screen Not Detected U Benzodiazepines Scrn Not Detected [place] Urine Cocaine Screen Not Detected U Marijuana (THC) Screen POSITIVE H Ethyl Alcohol COVID-19 (RAFAL) COVID-19 Clin Com 07/23/20 07/23/20 07/24/20 17:09 17:09 07:51 WBC RBC Hgb Hct MCV MCH MCHC RDW Plt Count MPV Immature Gran % (Auto) Neut % (Auto) Lymph % (Auto) [place] % (Auto) Eos % (Auto) Baso % (Auto) Lymph # (Auto) [place] # (Auto) Eos # (Auto) Baso # (Auto) Abs Immat Gran (auto) Absolute Neuts (auto) Absolute Nucleated RBC Nucleated RBC % (auto) Sodium 138 Potassium 4.6 Chloride 107 Carbon Dioxide 24 Anion Gap 12 BUN 7 L Creatinine 0.79 Estim Creat Clear Calc 133.8 Estimated GFR > 60 Random Glucose 84 Calcium 8.6 Total Bilirubin 0.2 AST 12 ALT 14 Alkaline Phosphatase 73 Total Protein 6.9 Albumin 4.3 Urine Color Urine Appearance Urine pH Ur Specific [place] Urine Protein Urine Glucose (UA) Urine Ketones Urine Blood Urine Nitrite Ur Leukocyte Esterase Urine RBC Urine WBC Ur Squamous Epith Cells Urine Bacteria Urine Test Salicylates < 5.0 L Urine Opiates Screen Acetaminophen < 1 Ur Barbiturates Screen Ur Phencyclidine Scrn Ur Amphetamines Screen U Benzodiazepines Scrn [place] Urine Cocaine Screen U Marijuana (THC) Screen Ethyl Alcohol < 10 COVID-19 (RAFAL) Negative COVID-19 Clin Com See Note 07/27/20 08/01/20 08:03 21:18 WBC RBC Hgb Hct MCV MCH MCHC RDW Plt Count MPV Immature Gran % (Auto) Neut % (Auto) Lymph % (Auto) [place] % (Auto) Eos % (Auto) Baso % (Auto) Lymph # (Auto) [place] # (Auto) Eos # (Auto) Baso # (Auto) Abs Immat Gran (auto) Absolute Neuts (auto) Absolute Nucleated RBC Nucleated RBC % (auto) Sodium Potassium Chloride Carbon Dioxide Anion Gap BUN Creatinine Estim Creat Clear Calc Estimated GFR Random Glucose Calcium Total Bilirubin AST ALT Alkaline Phosphatase Total Protein Albumin Urine Color STRAW Urine Appearance CLEAR Urine pH 6.0 Ur Specific [place] 1.015 Urine Protein NEG Urine Glucose (UA) NEG Urine Ketones NEG Urine Blood TRACE Urine Nitrite NEG Ur Leukocyte Esterase NEG Urine RBC 1-4 Urine WBC 0-2 Ur Squamous Epith Cells 2+ Urine Bacteria TRACE Urine Test Salicylates Urine Opiates Screen Acetaminophen Ur Barbiturates Screen Ur Phencyclidine Scrn Ur Amphetamines Screen U Benzodiazepines Scrn [place] 0.54 L Urine Cocaine Screen U Marijuana (THC) Screen Ethyl Alcohol COVID-19 (RAFAL) COVID-19 Clin Com Airway Mallampati Class: II TM Dist: >3cm Neck ROM: Full Assessment and Plan Assessment Anesthesia Assessment: Anesthesia Plan Discussed and Chart Reviewed Final Anesthetic Review NPO: Yes ASA Class: II Final Preanesthetic Review: No Changes in Pt Med Stat, Meds/Allgs Chart Reviewed, Consent Obtained/Reviewed and Anes Risks/Benef Reviewed Patient Risk: Low Procedure Risk: Low Assessment/Block/Sedation in SS: Assess/Block/Sedation-SS Anesthetic Plan Anesthetic Plan: GA Disposition: Standard PACU
--- NOTE | 2020-08-19 07:40 | HO.ECTPROC ---
ECT Procedure Note Diagnosis/Treatment Diagnosis: Major Depressive Disorder Previous ECT Date: 08/14/20 Current Treatment Number: 5 Treatment: Series Interval Clinical Notes: pt gradually improving ECT Settings Device: THYMATRON DGx Electrode Placement: Bitemporal Program/Pulse Width: 0.50 Energy Percent: 100 Seizure Duration By EEG (in seconds): 17 Medications Administration General Anesthetic: Etomidate (16) Muscle Relaxant: Succinylcholine (100) Ancillary Medications Anti-emetics: Zofran - Pre ECT Miscillaneous Medications: Propofol (50 mg ) and Flumazenil Airway Management Airway Management: Bag Mask Ventilation Treatment Recommendations Notes: hold gabapentin day before lower etomidate to 12-14 mg Pt Tolerated Procedure w/o Issue: Yes
--- NOTE | 2020-08-19 07:44 | P.PNPSI_ITS ---
Subjective Subjective Date of Service: 08/19/20 Reason For Visit: Depression Subjective Notes: Conditional Voluntary Interim History: patient doing better plan to step down to respite tomorrow continue ECT did well this am Medication Compliance: Yes Side effects from medications: Yes Mental Status Exam Mental Status Exam Patient Appearance: Disheveled Patient Orientation: Person, Place, Time and Situation Level of Consciousness: Awake Patient Behavior: Appropriate and Cooperative Behavior Comments: has not been self injurious despite thoughts Mood Description: Depressed and Anxious Affect Description: Constricted Patient Cognition Impaired: No Ability to Follow Directions: Good Speech Pattern: Clear Hallucinations: Auditory Delusions: Not Present Thought Process: Intact Thought Content: positive for Intact Depressive Symptoms: Thoughts of /Suicide (not new) Judgement: Fair Diagnostics Vital Signs (24Hr): Vital Signs - 24 hr 08/18/20 08:17 08/18/20 09:13 08/18/20 11:46 Temperature 97.9 F Pulse Rate 92 92 92 Respiratory Rate 16 Blood Pressure 97/56 L 97/56 L 97/56 L Pulse Oximetry 97 08/18/20 15:02 08/18/20 17:38 08/18/20 20:43 Temperature 97.8 F Pulse Rate 92 123 H 99 Respiratory Rate Blood Pressure 97/56 L 110/73 112/68 Pulse Oximetry 08/19/20 05:10 08/19/20 05:50 08/19/20 06:24 Temperature 97.1 F 97.1 F 98.3 F Pulse Rate 73 73 91 Respiratory Rate 18 18 20 Blood Pressure 125/81 125/81 134/92 H Pulse Oximetry 97 97 97 Body Mass Index 48.4 Labs Results: 07/23/20 17:09 07/23/20 17:09 Imaging Radiology Impressions: ITS Impressions Head CT 07/27/20 00:00 IMPRESSION: 1. No acute intracranial hemorrhage or mass effect. 2. Soft tissue injury and swelling along the anterior calvarium. Medications Medications Current Medications Generic Name Dose Route Start Last Admin Trade Name Freq PRN Reason Stop Dose Admin Acetaminophen 650 mg 07/24/20 01:00 08/18/20 21:53 Acetaminophen 325 Mg Tablet PO 650 mg Q6H PRN Administration pain Al Hydroxide/Mg Hydroxide 30 ml 07/24/20 18:37 08/17/20 14:55 Magnesium Hydrox/Alum Hydrox 30 Ml Oral.Susp PO 30 ml Q6H PRN Administration Heartburn/Nausea Albuterol Sulfate 2 puff 07/24/20 00:20 08/10/20 12:08 Albuterol Sulfate 90 Mcg 8 Gm Inhaler INHALE 2 puff Q4H PRN Administration Wheezing Benzocaine 1 appl 07/29/20 13:57 08/01/20 18:17 Benzocaine 10 % Oral Gel 9 Gm Tube MUCOUS MEM 1 appl QID PRN Administration Mouth Sore Pain Protocol Bisacodyl 10 mg 08/11/20 12:23 Bisacodyl 5 Mg Tablet. PO DAILY PRN Constipation Chlorpromazine HCl 100 mg 08/17/20 21:00 08/18/20 20:43 Chlorpromazine Hcl 100 Mg Tablet PO 100 mg BEDTIME SULEIMAN Administration Chlorpromazine HCl 100 mg 08/17/20 13:28 Chlorpromazine Hcl 25 Mg Tablet PO Q6H PRN Agitation Cyproheptadine HCl 4 mg 07/29/20 21:45 08/18/20 20:43 Cyproheptadine Hcl 4 Mg Tablet PO 4 mg BEDTIME SULEIMAN Administration Docusate Sodium 200 mg 07/24/20 09:00 08/18/20 20:43 Docusate Sodium 100 Mg Capsule PO 200 mg BID SULEIMAN Administration Duloxetine HCl 60 mg 07/24/20 09:00 08/18/20 09:12 Duloxetine Hcl 60 Mg Capsule. PO 60 mg DAILY SULEIMAN Administration Fluconazole 100 mg 08/17/20 13:15 08/18/20 09:11 Fluconazole 100 Mg Tablet PO 08/19/20 15:00 100 mg DAILY SULEIMAN Administration Gabapentin 600 mg 07/30/20 09:00 08/18/20 09:12 Gabapentin 300 Mg Capsule PO 600 mg DAILY SULEIMAN Administration Gabapentin 600 mg 07/30/20 12:00 08/18/20 11:57 Gabapentin 300 Mg Capsule PO Not Given DAILY@1200 SULEIMAN Haloperidol 5 mg 07/24/20 00:20 08/15/20 18:20 Haloperidol 5 Mg Tablet PO 5 mg BID PRN Administration psychosis Haloperidol 2 mg 07/29/20 15:00 08/18/20 20:44 Haloperidol 1 Mg Tablet PO 2 mg TID SULEIMAN Administration Hydroxyzine HCl 50 mg 07/24/20 01:06 08/18/20 22:54 Hydroxyzine Hcl 50 Mg Tablet PO 50 mg TID PRN Administration Anxiety Ibuprofen 600 mg 07/24/20 00:20 08/14/20 09:33 Ibuprofen 600 Mg Tablet PO 600 mg QID PRN Administration severe pain Lactic Acid 1 appl 08/18/20 21:00 08/18/20 21:01 Ammonium Lactate 12 % Cream 140 Gm Tube TOPICAL 1 appl BID SULEIMAN Administration Protocol Lidocaine 1 patch 08/01/20 18:35 08/18/20 09:16 Lidocaine 4 % Patch Adh..Patch TRANSDERMA 1 patch DAILY SULEIMAN Administration Protocol [place] Carbonate 600 mg 08/05/20 09:00 08/18/20 09:12 [place] Carbonate Er 300 Mg Tablet.Er PO 600 mg DAILY SULEIMAN Administration Lorazepam 1 mg 08/17/20 13:30 08/17/20 16:34 Lorazepam 1 Mg Tablet PO 1 mg TID PRN Administration Anxiety/Restlessness Lorazepam 1 mg 08/17/20 21:00 08/18/20 20:42 Lorazepam 1 Mg Tablet PO Not Given BEDTIME SULEIMAN Magnesium Hydroxide 30 ml 07/24/20 18:37 08/08/20 20:34 Milk Of Magnesia 30 Ml Oral.Susp PO 30 ml DAILY PRN Administration Constipation Mirtazapine 15 mg 08/11/20 21:00 08/18/20 20:44 Mirtazapine 15 Mg Tablet PO 15 mg BEDTIME SULEIMAN Administration Multi-Ingred Cream/Lotion/Oil/Oint 1 appl 08/16/20 21:00 08/18/20 20:31 Mineral Oil/Petrolatum,White 106 Gm Tube TOPICAL 1 appl BID SULEIMAN Administration Naltrexone HCl 50 mg 07/30/20 11:35 08/18/20 09:11 Naltrexone Hcl 50 Mg Tablet PO 50 mg DAILY SULEIMAN Administration Nicotine 21 mg 07/26/20 10:35 08/18/20 09:16 Nicotine 21 Mg Patch.Td24 TRANSDERMA 21 mg DAILY SULEIMAN Administration Olanzapine 15 mg 08/11/20 21:00 08/18/20 20:44 Olanzapine 7.5 Mg Tablet PO 15 mg BEDTIME SULEIMAN Administration Omeprazole 20 mg 07/24/20 06:30 08/18/20 09:12 Omeprazole 20 Mg Capsule.Dr PO 20 mg DAILY@0630 SULEIMAN Administration Ondansetron HCl 4 mg 08/12/20 08:32 Ondansetron Hcl 4 Mg/2 Ml Vial IVPUSH ONCE PRN Nausea and Vomiting Ondansetron HCl 4 mg 08/14/20 07:26 Ondansetron Hcl 4 Mg/2 Ml Vial IVPUSH ONCE PRN Nausea and Vomiting Polyethylene Glycol 17 gm 08/10/20 21:00 08/18/20 20:46 Polyethylene Glycol 3350 17 Gm Powd.Pack PO Not Given BEDTIME SULEIMAN Prazosin HCl 5 mg 07/27/20 21:30 08/18/20 20:43 Prazosin Hcl 5 Mg Capsule PO 5 mg BEDTIME SULEIMAN Administration Protocol Prazosin HCl 2 mg 07/30/20 12:00 08/18/20 11:46 Prazosin Hcl 1 Mg Capsule PO 2 mg DAILY@1200 [facility] Administration Protocol Propranolol HCl 10 mg 08/10/20 15:00 08/18/20 20:43 Propranolol Hcl 10 Mg Tablet PO 10 mg TID SULEIMAN Administration Protocol Sodium Biphosphate/Sodium Phosphate 133 ml 08/04/20 16:30 08/04/20 16:40 Sodium Phosphate,Mitchell-Dibasic 133 Ml Enema HI 133 ml ONCE PRN Administration Constipation Trazodone HCl 50 mg 08/17/20 21:00 08/18/20 20:44 Trazodone Hcl 50 Mg Tablet PO 50 mg BEDTIME SULEIMAN Administration Allergies Allergies Allergy/AdvReac Type Severity Reaction Status Date / Time carbamazepine [From TEGRETOL] AdvReac Unknown NAUSEA & Verified 06/02/20 19:50 VOMITING topiramate [From TOPAMAX] AdvReac Unknown NAUSEA & Verified 06/02/20 19:50 VOMITING Assessment & Plan Assessment & Plan (1) Recurrent major depression-severe: Status: Acute Code(s): F33.2 - Major depressive disorder, recurrent severe without psychotic features Assessment and Plan: continue ECT mirtazapine Cymbalta transition to respite (2) Borderline personality disorder: Status: Acute Code(s): F60.3 - Borderline personality disorder Greater than 50% of the session was spent on counseling and/or coordination of care
--- NOTE | 2020-08-19 08:46 | HO.POSTANES ---
Post Anesthesia Evaluation Post Anesthesia Evaluation Vital Signs: Vital Signs Temp Pulse Resp BP Pulse Ox 08/19/20 08:13 89 18 131/73 97 08/19/20 07:57 90 16 119/80 96 08/19/20 07:52 88 18 136/75 97 08/19/20 07:47 94 16 119/76 96 08/19/20 07:42 99.5 F 88 16 122/79 99 08/19/20 06:24 98.3 F 91 20 134/92 H 97 08/19/20 05:50 97.1 F 73 18 125/81 97 08/19/20 05:10 97.1 F 73 18 125/81 97 Anesthesia: General Mental Status: Awake Pain Control: Satisfactory Nausea/Vomiting: None Hydration: Adequate Anesthesia-Related Issues: No Anes. Related Issues
[2020-08-19] MEDS: Gabapentin 300 MG CAPSULE 600 MG PO ×2 (09:29→12:30)
[2020-08-19] MEDS: Omeprazole 20 MG CAPSULE.DR PO (09:29)
[2020-08-19] MEDS: Docusate Sodium 100 MG CAPSULE 200 MG PO ×2 (09:29→21:32)
[2020-08-19] MEDS: Fluconazole 100 MG TABLET PO (09:30)
[2020-08-19] MEDS: HaloperidoL 1 MG TABLET 2 MG PO ×3 (09:30→21:32)
[2020-08-19] MEDS: DULoxetine HCl 60 MG CAPSULE.DR PO (09:31)
[2020-08-19] MEDS: Lithium Carbonate ER 300 MG TABLET.ER 600 MG PO (09:31)
[2020-08-19] MEDS: Propranolol HCL 10 MG TABLET PO ×3 (09:31→21:31)
[2020-08-19] MEDS: Lidocaine 4 % Patch ADH..PATCH 1 PATCH TRANSDERMA (09:32)
[2020-08-19] MEDS: Nicotine 21 MG PATCH.TD24 TRANSDERMA (09:32)
[2020-08-19] MEDS: Naltrexone HCl 50 MG TABLET PO (09:32)
[2020-08-19] MEDS: Prazosin HCL 1 MG CAPSULE 2 MG PO (12:29)
[2020-08-19 14:52] LABS: COVID-19 Test Negative (Negative)
[2020-08-19] MEDS: Acetaminophen 325 MG TABLET 650 MG PO (16:06)
[2020-08-19] MEDS: Ammonium Lactate 12 % Cream 140 GM TUBE 1 APPL TOPICAL (21:26)
[2020-08-19] MEDS: Prazosin HCL 5 MG CAPSULE PO (21:27)
[2020-08-19] MEDS: Cyproheptadine HCl 4 MG TABLET PO (21:31)
[2020-08-19] MEDS: LORazepam 1 MG TABLET PO (21:32)
[2020-08-19] MEDS: chlorproMAZINE HCl 100 MG TABLET PO (21:32)
[2020-08-19] MEDS: Mirtazapine 15 MG TABLET 30 MG PO (21:32)
[2020-08-19] MEDS: OLANZapine 7.5 MG TABLET 15 MG PO (21:32)
[2020-08-19] MEDS: Mineral Oil/Petrolatum,White 106 GM Tube 1 APPL TOPICAL (21:33)
--- NOTE | 2020-08-20 08:00 | ECG_ITS ---
Test Reason : CK QT CP Blood Pressure : / mmHG Vent. Rate : 090 BPM Atrial Rate : 090 BPM P-R Int : 140 ms QRS Dur : 068 ms QT Int : 372 ms P-R-T Axes : 066 079 079 degrees QTc Int : 455 ms Normal sinus rhythm Normal ECG When compared with ECG of 30-JUL-2020 15:21, No significant change was found Referred By: Abdoul Silva Electronically Signed By:Phillip Alex
[2020-08-20] MEDS: Lidocaine 4 % Patch ADH..PATCH 1 PATCH TRANSDERMA (09:03)
[2020-08-20] MEDS: HaloperidoL 1 MG TABLET 2 MG PO (09:03)
[2020-08-20] MEDS: Lithium Carbonate ER 300 MG TABLET.ER 600 MG PO (09:04)
[2020-08-20] MEDS: Gabapentin 300 MG CAPSULE 600 MG PO ×2 (09:04→11:29)
[2020-08-20 09:05] VITALS: BP 135/90; PULSE 109
[2020-08-20] MEDS: DULoxetine HCl 60 MG CAPSULE.DR PO (09:05)
[2020-08-20] MEDS: Propranolol HCL 10 MG TABLET PO (09:05)
[2020-08-20] MEDS: Omeprazole 20 MG CAPSULE.DR PO (09:05)
[2020-08-20] MEDS: Naltrexone HCl 50 MG TABLET PO (09:06)
[2020-08-20] MEDS: Docusate Sodium 100 MG CAPSULE 200 MG PO (09:06)
--- NOTE | 2020-08-20 10:27 | PC.NURSE ---
Pt is aware and understanding of discharge. Pt has been educated on medications and discharge treatment plans. Pt is aware of future scheduled appointments. Pt is less labile than upon admission. She reports her depression and anxiety less than previously reported. Pt is calm and cooperative. She is compliant on her medications. Pt reports no SI or HI. Pt denies auditory or visual hallucinations. Pt is having difficulty falling asleep and staying asleep at night but does have success with PRN medications. Pt's appointments have been faxed to PCP per protocol.
[2020-08-20 11:30] VITALS: BP 135/90; PULSE 109
[2020-08-20] MEDS: Prazosin HCL 1 MG CAPSULE 2 MG PO (11:30)
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
== END 2020-08-20 11:50 | DRG 751 ==
LOC: HO.ED 07-24 15:50 → HO.PM5 07-24 16:29
PROVIDERS: Clinical Nurse Specialist Psychiatric/Mental Health; Physician Assistant; Psychiatry & Neurology Psychiatry; Admitting Provider Psychiatry & Neurology Psychiatry; Emergency Provider Emergency Medicine; PCP Internal Medicine Sports Medicine; Visit Provider Psychiatry & Neurology Psychiatry
PROC: GZB4ZZZ Other Electroconvulsive Therapy (ICD-10-PCS; CPT 90870; principal; 2020-08-05 15:00)
PROC: (CPT 90870; principal; 2020-08-21 07:00)
DX: F33.3 Major depressive disorder, recurrent, severe with psychotic symptoms (principal); R45.851 Suicidal ideations; K04.7 Periapical abscess without sinus; F43.11 Post-traumatic stress disorder, acute; F60.3 Borderline personality disorder; F17.210 Nicotine dependence, cigarettes, uncomplicated; Z20.828 Contact with and (suspected) exposure to other viral communicable diseases; Z91.5 Personal history of self-harm; Z71.6 Tobacco abuse counseling; Z79.1 Long term (current) use of non-steroidal anti-inflammatories (NSAID); Z79.899 Other long term (current) drug therapy
CPT/HCPCS: 36415; 70450; 80053; 80178; 80307; 80320; 81001; 81025; 85025; 87635; 90792; 90870; 93005; 99232; 99239; 99285; G0480; J0330; J0515; J1642; J1885; J2060; J2405; T1004

== ENCOUNTER 2020-08-21 | Day surgery (SDC) | payer OTHER, SELFPAY ==
[2020-08-21] VITALS (8 sets, daily range): BP systolic 116–147; BP diastolic 83–98; PULSE 87–116; RESP 18–22; TEMP 36.4–37.1; O2SAT 93–99; BMI 48.4
--- NOTE | 2020-08-21 07:02 | MHC.SHP ---
Pre-Procedural Eval Section A The patient is an INPATIENT: No Changes since office visit: Yes Changes in Medication and Yes Patient answered all questions; No Cold of Flu in the past 2 weeks and No New Medical Problems The History & Physical has been completed within 30 days and I have reviewed it.: Yes Section B Chief Complaint: severe depression Allergies: Allergies Allergy/AdvReac Type Severity Reaction Status Date / Time carbamazepine [From TEGRETOL] AdvReac Unknown NAUSEA & Verified 06/02/20 19:50 VOMITING topiramate [From TOPAMAX] AdvReac Unknown NAUSEA & Verified 06/02/20 19:50 VOMITING Plan I have reviewed the history and physical and performed a pertinent physical examination on my patient. No changes have occurred unless specified.
--- NOTE | 2020-08-21 07:13 | P.CONAN_ITS ---
[facility] Past Medical History Medical History Adjustment disorder Anxiety Asthma Borderline personality disorder Depression GERD (gastroesophageal reflux disease) Increased BMI Intentional self-harm PTSD (post-traumatic stress disorder) Recurrent major depression-severe Schizoaffective disorder Self-harming behavior Suicidal ideation Social History Social History Household Members: Other Housing: House Alcohol intake: unknown Smoking Status: Current every day smoker Tobacco Type: Cigarette Packs Per Day: 0.5 Cigarettes Per Day: 10 Years Smoked: 10 Second Hand Smoke Exposure: No Substance Use Type: Marijuana service: No Meds Allergies Allergy/AdvReac Type Severity Reaction Status Date / Time carbamazepine [From TEGRETOL] AdvReac Unknown NAUSEA & Verified 06/02/20 19:50 VOMITING topiramate [From TOPAMAX] AdvReac Unknown NAUSEA & Verified 06/02/20 19:50 VOMITING Exam Exam Date and Time: August 21, 202013 Height,Weight and Vital Signs: Height 4 ft 11 in Weight 108.862 kg Last Vital Signs Temp 97.6 F 08/21/20 06:34 Pulse 116 H 08/21/20 06:34 Resp 18 08/21/20 06:34 BP 140/95 H 08/21/20 06:34 Pulse Ox 97 08/21/20 06:34 Airway Mallampati Class: II TM Dist: >3cm Neck ROM: Full Heart: RRR Lungs: CTA Assessment and Plan Assessment Anesthesia Assessment: Anesthesia Plan Discussed and Chart Reviewed Final Anesthetic Review NPO: Yes ASA Class: II Final Preanesthetic Review: No Changes in Pt Med Stat, Meds/Allgs Chart Reviewed, Consent Obtained/Reviewed and Anes Risks/Benef Reviewed Patient Risk: Intermediate Procedure Risk: Intermediate Anesthetic Plan Anesthetic Plan: GA Disposition: Standard PACU
--- NOTE | 2020-08-21 07:24 | HO.ECTPROC ---
ECT Procedure Note Diagnosis/Treatment Diagnosis: Major Depressive Disorder Previous ECT Date: 08/19/20 Current Treatment Number: 6 Treatment: Series Interval Clinical Notes: patient was come cooperative with a full affect stated she was feeling stable no active self-harm or self-harming behavior since discharge ECT Settings Device: THYMATRON DGx Electrode Placement: Bitemporal Program/Pulse Width: 0.50 Energy Percent: 100 Seizure Duration By EEG (in seconds): 31 Medications Administration General Anesthetic: Etomidate (14) Muscle Relaxant: Succinylcholine (100) Ancillary Medications Analgesics: Torodol - Pre ECT Miscillaneous Medications: Propofol and Flumazenil Airway Management Airway Management: Bag Mask Ventilation Treatment Recommendations No Changes Recommended: No change Notes: follow-up treatment scheduled in 2 weeks Pt Tolerated Procedure w/o Issue: Yes
== END 2020-08-21 23:59 | disposition home or self-care (01) ==
LOC: HO.SSS 08-23 10:22
PROVIDERS: PCP Internal Medicine Sports Medicine; Visit Provider Psychiatry & Neurology Psychiatry
DX: F33.2 Major depressive disorder, recurrent severe without psychotic features (principal); F60.3 Borderline personality disorder; F25.9 Schizoaffective disorder, unspecified; F43.10 Post-traumatic stress disorder, unspecified; Z91.5 Personal history of self-harm; J45.909 Unspecified asthma, uncomplicated; F12.90 Cannabis use, unspecified, uncomplicated; F17.210 Nicotine dependence, cigarettes, uncomplicated; Z79.899 Other long term (current) drug therapy; Z88.8 Allergy status to other drugs, medicaments and biological substances
CPT/HCPCS: 90870; J0330; J1642; J1885; J2405

== ENCOUNTER 2020-09-04 06:03 | Day surgery (SDC) | payer OTHER, SELFPAY ==
[2020-09-04 06:43] VITALS: BP 106/82; PULSE 90; RESP 20; TEMP 36.2; O2SAT 99; BMI 44.4
--- NOTE | 2020-09-04 07:24 | P.CONAN_ITS ---
[facility] Past Medical History Medical History Adjustment disorder Anxiety Asthma Borderline personality disorder Depression GERD (gastroesophageal reflux disease) Increased BMI Injury, self-inflicted Intentional self-harm PTSD (post-traumatic stress disorder) Recurrent major depression-severe Schizoaffective disorder Self-harming behavior Suicidal ideation Suicidal ideation Social History Social History Household Members: Other Housing: House Alcohol intake: unknown Smoking Status: Current every day smoker Tobacco Type: Cigarette Packs Per Day: 0.5 Cigarettes Per Day: 1 Years Smoked: 10 Second Hand Smoke Exposure: No Use of substances other than those prescribed or required for medical reasons: No Substance Use Type: Marijuana Have you been hit, kicked, punched, or otherwise hurt by someone within the past year? If so, by whom?: No Advance Directives: No Advance Directives Information Provided: Yes service: No Meds Allergies Allergy/AdvReac Type Severity Reaction Status Date / Time carbamazepine [From TEGRETOL] AdvReac Unknown NAUSEA & Verified 06/02/20 19:50 VOMITING topiramate [From TOPAMAX] AdvReac Unknown NAUSEA & Verified 06/02/20 19:50 VOMITING Exam Exam Date and Time: September 04, 2020723 Height,Weight and Vital Signs: Height 4 ft 11 in Weight 99.79 kg Last Vital Signs Temp 97.2 F 09/04/20 06:43 Pulse 90 09/04/20 06:43 Resp 20 09/04/20 06:43 BP 106/82 09/04/20 06:43 Pulse Ox 99 09/04/20 06:43 Airway Mallampati Class: II TM Dist: >3cm Denture: Upper Heart: RRR Lungs: CTA
--- NOTE | 2020-09-04 07:51 | MHC.SHP ---
Pre-Procedural Eval Section B Chief Complaint: severe depression Details of Present Illness: recurrent depression ptsd Relevant Social History: Tobacco Use Present Medications: see Short Stay Collaborative assessment Medical History: Significant History (head banging cutting asthma ) History of Previous Operations: Relevant previous surgery/procedure and date(s) (ect) Allergies: Allergies Allergy/AdvReac Type Severity Reaction Status Date / Time carbamazepine [From TEGRETOL] AdvReac Unknown NAUSEA & Verified 06/02/20 19:50 VOMITING topiramate [From TOPAMAX] AdvReac Unknown NAUSEA & Verified 06/02/20 19:50 VOMITING Review of Systems Sugical H&P ROS: Yes, Specify: Cardiovascular, Respiratory and Hem-Onc Exam Surgical H&P Exam: Normal: Heart, Normal: Lungs and Normal: Neurological Plan Diagnosis/Plan: Unchanged I have reviewed the history and physical and performed a pertinent physical examination on my patient. No changes have occurred unless specified.
--- NOTE | 2020-09-04 08:03 | P.PCN_ITS ---
ECT Procedure Note Diagnosis/Treatment Diagnosis: Major Depressive Disorder Previous ECT Date: 08/19/20 Current Treatment Number: 1 (08/22) Treatment: Maintenance Interval Clinical Notes: Pt stable doing well cognitively clear ECT Settings Device: THYMATRON DGx Electrode Placement: Bitemporal Program/Pulse Width: 0.50 Energy Percent: 100 Seizure Duration By EEG (in seconds): 20 Medications Administration General Anesthetic: Etomidate (14) Muscle Relaxant: Succinylcholine (100) Ancillary Medications Miscillaneous Medications: Flumazenil Airway Management Airway Management: Bag Mask Ventilation Treatment Recommendations No Changes Recommended: No change Notes: f/u tx 3 weeks doing well will be moving to [facility] home sees joanne espino Pt Tolerated Procedure w/o Issue: Yes
[2020-09-04 08:06] VITALS: BP 156/106; PULSE 90; RESP 16; TEMP 37; O2SAT 96
[2020-09-04 08:11] VITALS: BP 141/84; PULSE 94; RESP 18; O2SAT 97
[2020-09-04 08:16] VITALS: BP 132/74; PULSE 90; RESP 20; O2SAT 96
[2020-09-04 08:21] VITALS: BP 133/85; PULSE 93; RESP 20; O2SAT 96
[2020-09-04 08:36] VITALS: BP 139/81; PULSE 89; RESP 20; TEMP 37; O2SAT 96
== END 2020-09-04 08:55 ==
PROVIDERS: PCP Internal Medicine; Visit Provider Psychiatry & Neurology Psychiatry
PROC: (CPT 90870; principal; 2020-09-04 07:00)
DX: F33.9 Major depressive disorder, recurrent, unspecified (principal); F43.10 Post-traumatic stress disorder, unspecified; J45.909 Unspecified asthma, uncomplicated
CPT/HCPCS: 90870; J0330; J1642; J1885; J2405

== ENCOUNTER 2020-09-09 11:23 | Emergency (ER) | payer OTHER, SELFPAY ==
[2020-09-09 12:40] VITALS: PULSE 98; RESP 19; TEMP 36.6; O2SAT 98; BMI 48.4
--- NOTE | 2020-09-09 13:15 | ED_ITS ---
HPI - General Adult General Chief complaint: General Medical Stated complaint: ?covid symptoms Time Seen by Provider: 09/09/20 13:13 Source: patient Mode of arrival: ambulatory Limitations: no limitations History of Present Illness HPI narrative: Runny nose/facial congestion with frontal headache and cough with associated pain in the chest. Symptoms ongoing since 5 days now. Denies any shortness of breath or chest pain right now only with cough. No recent travel or sick contact. States she came here to get tested for COVID-19. Related Data Previous Rx's Medication Instructions Recorded acetaminophen 650 mg PO Q6H PRN 30 Days #90 tab 08/19/20 albuterol sulfate 2 puff INHALATION Q4-6H PRN 30 08/19/20 Days #8.5 g chlorpromazine 100 mg PO BEDTIME #30 tab 08/19/20 chlorpromazine 100 mg PO Q6H PRN 30 Days #120 tab 08/19/20 cyproheptadine 4 mg PO BEDTIME 30 Days #30 tab 08/19/20 docusate sodium 200 mg PO BID 30 Days #120 cap 08/19/20 duloxetine 60 mg PO DAILY 30 Days #30 cap 08/19/20 fluconazole 100 mg PO DAILY 5 Days #5 tab 08/19/20 gabapentin 600 mg PO TID 30 Days #90 tab 08/19/20 haloperidol 1 tab PO BID PRN #60 tab 08/19/20 haloperidol 2 mg PO TID 30 Days #120 tab 08/19/20 haloperidol 5 mg PO BID PRN 30 Days #60 tab 08/19/20 hydroxyzine pamoate 50 mg PO TID PRN #90 cap 08/19/20 ibuprofen 1 tab PO QID PRN #90 tab 08/19/20 lithium carbonate 600 mg PO BEDTIME #30 tab 08/19/20 lorazepam 1 mg PO BEDTIME 30 Days #30 tab 08/19/20 lorazepam 1 mg PO TID PRN 30 Days #90 tab 08/19/20 mirtazapine [Remeron] 30 mg PO BEDTIME 30 Days #30 tab 08/19/20 naltrexone 50 mg PO DAILY 30 Days #30 tab 08/19/20 nicotine 1 patch TRANSDERMAL DAILY 28 Days 08/19/20 #28 ea olanzapine 10 mg PO BEDTIME 30 Days #30 tab 08/19/20 omeprazole 20 mg PO DAILY@0630 30 Days #30 cap 08/19/20 polyethylene glycol 3350 17 g PO DAILY 30 Days #510 g 08/19/20 prazosin 2 mg PO DAILY@1200 30 Days #60 cap 08/19/20 prazosin 5 mg PO BEDTIME 30 Days #30 cap 08/19/20 propranolol 10 mg PO TID 30 Days #90 tab 08/19/20 trazodone 50 mg PO BEDTIME PRN 30 Days #30 08/19/20 tab Allergies Allergy/AdvReac Type Severity Reaction Status Date / Time carbamazepine [From TEGRETOL] AdvReac Unknown NAUSEA & Verified 06/02/20 19:50 VOMITING topiramate [From TOPAMAX] AdvReac Unknown NAUSEA & Verified 06/02/20 19:50 VOMITING Review of Systems Review of Systems: Constitutional: No Weight loss, No Fever, No Chills, No Night Sweats, No Fatigue, No Malaise ENT/Mouth: No Hearing loss, No Ear Pain, + Nasal Congestion, No Sinus Pain, No Hoarseness, No sore throat, + Rhinorrhea, No Swallowing Difficulty Eyes: No Eye Pain, No Swelling, No Redness, No Foreign Body, No Discharge, No Vision Changes Cardiovascular: No SOB, No Dyspnea on Exertion, No Orthopnea, No Edema, No Palpitations Respiratory: + Coughmild dry, No Sputum, No Wheezing, No Smoke Exposure, No Dyspnea Gastrointestinal: No Nausea, No Vomiting, No Diarrhea, No Constipation, No abdominal Pain, No Hematochezia, No Melena Genitourinary: Negative Musculoskeletal: No joint pain, No Myalgias, No Joint Swelling Skin: No Skin Lesions, No rash Neuro: No Weakness, No Numbness, No Paresthesias, No Loss of Consciousness, No Dizziness Psych: No Anxiety/Panic, No Depression, No SI/HI/AH/VH, No Social Issues Heme/Lymph: No Bruising, No Bleeding,No Lymphadenopathy Endocrine: No Polyuria, No Polydipsia, No Temperature Intolerance Yes all other systems are reviewed and are negative [facility] Past Medical History Medical History Adjustment disorder Anxiety Asthma Borderline personality disorder Depression GERD (gastroesophageal reflux disease) Increased BMI Injury, self-inflicted Intentional self-harm PTSD (post-traumatic stress disorder) Recurrent major depression-severe Schizoaffective disorder Self-harming behavior Suicidal ideation Suicidal ideation Social History Social History Household Members: Other Housing: House Alcohol intake: unknown Smoking Status: Current every day smoker Tobacco Type: Cigarette Packs Per Day: 0.5 Cigarettes Per Day: 1 Years Smoked: 10 Second Hand Smoke Exposure: No Substance Use Type: Marijuana Advance Directives: No Advance Directives Information Provided: No service: No Physical Exam Vital Signs: Vital Signs: Last Vital Signs Temp 98 F 09/09/20 12:40 Pulse 98 09/09/20 12:40 Resp 19 09/09/20 12:40 Pulse Ox 98 09/09/20 12:40 Body Mass Index 48.4 Reviewed Const: General: cooperative and healthy appearing; No acute distress or intoxicated appearing Nutritional Appearance: average body habitus Orientation/consciousness: patient oriented x3 HENMT: Head: Yes normal to inspection Ears: hearing grossly normal bilaterally Eyes: General: appearance normal, both eyes and all related structures Visual Weber: normal visual weber by confrontation Neck: Neck: Yes normal visual inspection, No positive Brudzinski's sign, No positive Kernig's sign and No tender Thyroid: Thyroid normal Chest: Chest palpation & inspection: normal inspection of the chest Resp: Effort & Inspection: normal respiratory effort Auscultation: clear to auscultation bilaterally Cardio: Jugular venous distension: no JVD Rhythm: regular rhythm Heart sounds: S1 normal heart sound present and S2 normal heart sound present GI: Inspection: Yes normal to inspection Percussion: Yes normal to percussion Auscultation: normal bowel sounds : General: Yes no CVA tenderness Back/Spine/Pelvis: Back: no CVA tenderness Skin: General skin exam: no rashes or lesions noted Neuro: General: patient oriented x3 Extrem: General: Yes normal to inspection Course Course Course Narrative: Patient left directly after having her EKG chest x-ray without waiting for results. Stated that she had things to do. Medical Decision Making Lab Data Labs: Lab Results 09/09/20 Range/Units 13:32 Coronavirus (PCR) NEGATIVE (Negative) Influenza Type A (PCR) NEGATIVE (Negative) Influenza Type B (PCR) NEGATIVE (Negative) RSV RNA Qual (PCR) NEGATIVE (Negative) Imaging Data Chest x-ray: Radiologist's impression: [facility] [facility], [place] [address]BBia ReportSigned Patient: Kain Capps#: [id number]: 1985Acct:[id number]/Sex: 35 / FADM Date: 09/09/20Loc: EDAttending Dr: Ordering Physician: Héctor Forrester NP Date of Service: 09/09/20 Procedure(s): XR chest 1V Accession Number(s): [id number] cc: Héctor Forrester DIRECTOR OF PHOTOGRAPHY~ EXAMINATION: XR CHEST CLINICAL INFORMATION: Cough and chest wall pain COMPARISON: Previous chest x-ray most recent May 2020 TECHNIQUE: Frontal view of the chest was obtained. FINDINGS: The cardiac and mediastinal contours are normal. The lungs are clear. There is no pleural effusion or pneumothorax. There is a left jugular port with tip projecting over the SVC. Bony structures are unremarkable. XR/XR chest 1V IMPRESSION: No evidence for acute disease in the chest. Dictated By:JAMEL ELKINS MDSigned By:<Electronically signed by JAMEL ELKINS MD in OV>09/09/20 1407 DD/ 1317TD/TT: [place] Slabs Sawyer: MYLENE ECG Data Interpretation: Normal sinus rhythm Normal ECG When compared with ECG of 20-AUG-2020 09:26, No significant change was found Discharge Plan Discharge Clinical Impression: Acute upper respiratory infection Patient Disposition: Elopement Prescriptions: No Action fluconazole 100 mg Tablet 100 mg PO DAILY 5 Days Qty: 5 RF: 0 cyproheptadine 4 mg Tablet 4 mg PO BEDTIME 30 Days Qty: 30 RF: 0 chlorpromazine 100 mg Tablet 100 mg PO BEDTIME Qty: 30 RF: 0 haloperidol 1 mg Tablet 2 mg PO TID 30 Days Qty: 120 RF: 0 lorazepam 1 mg Tablet 1 mg PO BEDTIME 30 Days Qty: 30 RF: 0 lorazepam 1 mg Tablet 1 mg PO TID PRN (Reason: Anxiety/Restlessness ) 30 Days Qty: 90 RF: 0 mirtazapine [Remeron] 30 mg tablet 30 mg PO BEDTIME 30 Days Qty: 30 RF: 0 trazodone 50 mg Tablet 50 mg PO BEDTIME PRN (Reason: Insomnia) 30 Days Qty: 30 RF: 0 naltrexone 50 mg Tablet 50 mg PO DAILY 30 Days Qty: 30 RF: 0 prazosin 1 mg Capsule 2 mg PO DAILY@1200 30 Days Qty: 60 RF: 0 propranolol 10 mg Tablet 10 mg PO TID 30 Days Qty: 90 RF: 0 chlorpromazine 25 mg Tablet 100 mg PO Q6H PRN (Reason: Agitation) 30 Days Qty: 120 RF: 0 olanzapine 10 mg tablet 10 mg PO BEDTIME 30 Days Qty: 30 RF: 0 gabapentin 600 mg tablet 600 mg PO TID 30 Days Qty: 90 RF: 0 haloperidol 5 mg tablet 1 tab PO BID PRN (Reason: psychosis) Qty: 60 RF: 0 hydroxyzine pamoate 50 mg Capsule 50 mg PO TID PRN (Reason: Anxiety) Qty: 90 RF: 0 lithium carbonate 300 mg Tablet Extended Release 600 mg PO BEDTIME Qty: 30 RF: 0 acetaminophen 500 mg tablet 650 mg PO Q6H PRN (Reason: pain) 30 Days Qty: 90 RF: 0 prazosin 5 mg Capsule 5 mg PO BEDTIME 30 Days Qty: 30 RF: 0 docusate sodium 100 mg Capsule 200 mg PO BID 30 Days Qty: 120 RF: 0 omeprazole 20 mg Capsule,Delayed Release(Dr/Ec) 20 mg PO DAILY@0630 30 Days Qty: 30 RF: 0 ibuprofen 600 mg tablet 1 tab PO QID PRN (Reason: severe pain) Qty: 90 RF: 0 albuterol sulfate 90 mcg/actuation Hfa Aerosol Inhaler 2 puff INHALATION Q4-6H PRN (Reason: Wheezing) 30 Days Qty: 8.5 RF: 1 duloxetine 60 mg Capsule,Delayed Release(Dr/Ec) 60 mg PO DAILY 30 Days Qty: 30 RF: 0 haloperidol 5 mg Tablet 5 mg PO BID PRN (Reason: psychosis) 30 Days Qty: 60 RF: 0 nicotine 21 mg/24 hr patch 24 hour 1 patch transdermal DAILY 28 Days Qty: 28 RF: 0 polyethylene glycol 3350 17 gram/dose powder 17 g PO DAILY 30 Days Qty: 510 RF: 0 Discharge Date/Time: 09/09/20 14:15
--- NOTE | 2020-09-09 13:17 | ECG_ITS ---
Test Reason : CP Blood Pressure : / mmHG Vent. Rate : 091 BPM Atrial Rate : 091 BPM P-R Int : 140 ms QRS Dur : 074 ms QT Int : 370 ms P-R-T Axes : 039 051 038 degrees QTc Int : 455 ms Normal sinus rhythm Normal ECG When compared with ECG of 20-AUG-2020 09:26, No significant change was found Referred By: Héctor Forrester Electronically Signed By:Phillip Alex
[2020-09-09] MEDS: Ketorolac Tromethamine 30 MG/ML VIAL IM (13:41)
[2020-09-09 14:39] LABS: Influenza A PCR NEGATIVE (Negative); Influenza B PCR NEGATIVE (Negative); Resp Syncy Virus RNA Qual PCR NEGATIVE (Negative); SARS COV2 PCR INHOUSE NEGATIVE (Negative)
== END 2020-09-09 14:15 | disposition left against medical advice (07) ==
PROVIDERS: Nurse Practitioner Primary Care; Emergency Provider Internal Medicine
DX: J06.9 Acute upper respiratory infection, unspecified (principal); Z20.822 Contact with and (suspected) exposure to COVID-19; F17.210 Nicotine dependence, cigarettes, uncomplicated
CPT/HCPCS: 0241U; 36415; 71045; 93005; 96372; 99282; 99284; J1885

== ENCOUNTER 2020-09-09 18:08 | Emergency (ER) | payer OTHER, SELFPAY ==
[2020-09-09 18:30] VITALS: PULSE 101; RESP 20; TEMP 37; O2SAT 99; BMI 48.4
--- NOTE | 2020-09-09 18:35 | PC.NURSE ---
Pt arrived via ems, cooperative w/ changeover. Pt reports SI, reports that she took OD prior to arrival. unitizer aware. 1:1 requested per protocol for pt. Pt reports multiple somatic concerns including: chest pain x1 week, diarrhea to the point of incontinence, urinary incontinence, nausea. Pt was at ED recently to be tested for COVID but left prior to receiving the results because she did not want to wait. Pt states she does not like the people in her assisted and misses her sister, and would like to join her.
[2020-09-09 18:43] VITALS: RESP 20
--- NOTE | 2020-09-09 18:58 | PC.NURSE ---
1:1 w/ pt. Pt alert, gait steady, reaquesting to eat. Pt counseled to wait until evaluated by the provider, due to her numerous somatic concerns.
--- NOTE | 2020-09-09 19:20 | PC.NURSE ---
Patient in milieu talking to provider, calm and quiet, no distress reported, patient watched on 1:1, half-way called at [phone] for medication list, they may fax us to night, not sure because everything gets locked in the night, patient made aware will continue to monitor.
[2020-09-09 19:59] VITALS: BP 127/86; PULSE 101; RESP 17; TEMP 36.8; O2SAT 100
--- NOTE | 2020-09-09 20:02 | ECG_ITS ---
Test Reason : od Blood Pressure : / mmHG Vent. Rate : 098 BPM Atrial Rate : 098 BPM P-R Int : 144 ms QRS Dur : 076 ms QT Int : 364 ms P-R-T Axes : 068 070 061 degrees QTc Int : 464 ms Normal sinus rhythm Possible Left atrial enlargement Borderline ECG When compared with ECG of 09-SEP-2020 13:18, No significant change was found Referred By: Héctor Forresetr Electronically Signed By:Phillip Alex
[2020-09-09 20:17] LABS: MANUAL DIFF FLAG NO
[2020-09-09 20:19] LABS: Basophils Percent Auto 0.2 % (0-2); Imm Gran Abs Auto 0.02 X10*3/uL (0.00-0.03); Imm Gran Pct Auto 0.3 % (0.0-0.4); Lymphocytes Absolute Auto 2.2 X10*3/uL (1.2-4.9); Lymphocytes Percent Auto 35.5 % (20-40); Mean Corpuscular HGB Conc 31.4 g/dl (31.0-35.0); Mean Corpuscular Hemoglobin 27.1 pg (27.0-33.0); Mean Corpuscular Volume 86.2 fL (80-98); Mean Platelet Volume 10.1 fL (9.4-12.3); Monocytes Absolute Auto 0.3 X10*3/uL (0.1-1.2); Monocytes Percent Auto 4.6 % (2-11); Neutrophils Absolute Auto 3.8 X10*3/uL (2.0-8.3); Neutrophils Percent Auto 59.4 % (45-73); Platelet Count 329 X10*3/uL (160-400); Red Blood Count 4.06 X10*6/uL (4.20-5.50); White Blood Count 6.3 X10*3/uL (4.8-10.8)
--- NOTE | 2020-09-09 20:25 | MHC.CARE ---
CARE team support requested by pt and provider after pt arrived to ED by ambulance secondary to a self reported medication overdose. Pt initially was advocating that she speak with crisis, however after chatting with pod staff and this mortgage loan underwriter, pt reported that she is feeling better and able to safely return to her shelter. This mortgage loan underwriter spoke with ED provider and pod nurse, who stated that pt's medications are secured in a lock box and administered by shelter staff, and that it is unlikely that pt took an overdose with her prescribed medications. Labs ordered to medically clear pt before making final disposition. Presentation: Pt is well known to [facility] and this mortgage loan underwriter from numerous previous crisis assessments and inpt psych admissions. On arrival, pt identified that she has been feeling down because she misses her sister, who in June 2019. Pt also reported that she doesn't feel that she's able to tolerate living in her current shelter any longer (where she has been for 4 years), as she feels constantly triggered by the other residents, stating that they're always doing drugs and being loud. Pt reported that her treatment team is working on having her placed in a different program, however they haven't been able to give an answer to when she'll be moving. Pt denied current thoughts of or suicide, noting that her sister would want her to be strong, and that she knows that her sister is watching over her. Pt also spoke of her nephew, who is 9 months old today, whom she loves and wants to see again. When ED provider spoke with pt again following conversation, pt reported that she had taken her medications that were given to her by shelter staff, and not an overdose. A lyft will be requested to transport pt home once she is medically cleared for discharge.
[2020-09-09 20:49] LABS: Acetaminophen LAB 2 mcg/mL (<30); Alanine Aminotransferase 17 U/L (0-31); Albumin Level 4.2 g/dL (3.5-5.0); Alkaline Phosphatase 84 U/L (39-117); Anion Gap 12 (12-20); Aspartate Amino Transferase 19 U/L (5-31); Bilirubin Total 0.2 mg/dL (0.0-1.0); Blood Urea Nitrogen 10 mg/dL (9-16); Carbon Dioxide 27 mmol/L (22-29); Chloride 105 mmol/L (96-108); Creatinine Clr Calc Pharmacy 112.9; Estimated Glomerular Filt Rate > 60; Glucose Random 87 mg/dL (60-115); Salicylate < 5.0 mg/dL (15-30); Sodium 140 mmol/L (135-145); Total Protein 6.8 g/dL (6.5-8.0)
--- NOTE | 2020-09-09 21:02 | ED_ITS ---
HPI - Overdose General Chief Complaint: Overdose Stated Complaint: crisis Time Seen by Provider: 09/09/20 20:01 Source: EMS Mode of arrival: EMS Limitations: no limitations History of Present Illness HPI Narrative: States she got into argument with staff and unhappy with her living situation look for a new penitentiary. Per nursing report she may have taken 7 tablets of gabapentin. She has a lock box by staff that controls her medications as the patient this and she states that she only took her evening medication prescribed she does not affect access to any of her medications. She denies taking extra medications. Denies any alcohol or drug use. Associated symptoms: depression Treatments Prior to Arrival: none Related Data Previous Rx's Medication Instructions Recorded acetaminophen 650 mg PO Q6H PRN 30 Days #90 tab 08/19/20 albuterol sulfate 2 puff INHALATION Q4-6H PRN 30 08/19/20 Days #8.5 g chlorpromazine 100 mg PO BEDTIME #30 tab 08/19/20 chlorpromazine 100 mg PO Q6H PRN 30 Days #120 tab 08/19/20 cyproheptadine 4 mg PO BEDTIME 30 Days #30 tab 08/19/20 docusate sodium 200 mg PO BID 30 Days #120 cap 08/19/20 duloxetine 60 mg PO DAILY 30 Days #30 cap 08/19/20 fluconazole 100 mg PO DAILY 5 Days #5 tab 08/19/20 gabapentin 600 mg PO TID 30 Days #90 tab 08/19/20 haloperidol 1 tab PO BID PRN #60 tab 08/19/20 haloperidol 2 mg PO TID 30 Days #120 tab 08/19/20 haloperidol 5 mg PO BID PRN 30 Days #60 tab 08/19/20 hydroxyzine pamoate 50 mg PO TID PRN #90 cap 08/19/20 ibuprofen 1 tab PO QID PRN #90 tab 08/19/20 lithium carbonate 600 mg PO BEDTIME #30 tab 08/19/20 lorazepam 1 mg PO BEDTIME 30 Days #30 tab 08/19/20 lorazepam 1 mg PO TID PRN 30 Days #90 tab 08/19/20 mirtazapine [Remeron] 30 mg PO BEDTIME 30 Days #30 tab 08/19/20 naltrexone 50 mg PO DAILY 30 Days #30 tab 08/19/20 nicotine 1 patch TRANSDERMAL DAILY 28 Days 08/19/20 #28 ea olanzapine 10 mg PO BEDTIME 30 Days #30 tab 08/19/20 omeprazole 20 mg PO DAILY@0630 30 Days #30 cap 08/19/20 polyethylene glycol 3350 17 g PO DAILY 30 Days #510 g 08/19/20 prazosin 2 mg PO DAILY@1200 30 Days #60 cap 08/19/20 prazosin 5 mg PO BEDTIME 30 Days #30 cap 08/19/20 propranolol 10 mg PO TID 30 Days #90 tab 08/19/20 trazodone 50 mg PO BEDTIME PRN 30 Days #30 08/19/20 tab Allergies Allergy/AdvReac Type Severity Reaction Status Date / Time carbamazepine [From TEGRETOL] AdvReac Unknown NAUSEA & Verified 06/02/20 19:50 VOMITING topiramate [From TOPAMAX] AdvReac Unknown NAUSEA & Verified 06/02/20 19:50 VOMITING Review of Systems Review of Systems: Constitutional: No Weight loss, No Fever, No Chills, No Night Sweats, No Fatigue, No Malaise ENT/Mouth: No Hearing loss, No Ear Pain, No Nasal Congestion, No Sinus Pain, No Hoarseness, No sore throat, No Rhinorrhea, No Swallowing Difficulty Eyes: No Eye Pain, No Swelling, No Redness, No Foreign Body, No Discharge, No Vision Changes Cardiovascular: No Chest Pain, No SOB, No Dyspnea on Exertion, No Orthopnea, No Edema, No Palpitations Respiratory: No Cough, No Sputum, No Wheezing, No Smoke Exposure, No Dyspnea Gastrointestinal: No Nausea, No Vomiting, No Diarrhea, No Constipation, No abdominal Pain, No Hematochezia, No Melena Genitourinary: no irregular bleeding, No Dysuria, No Urinary Frequency, No Hematuria, No Urinary Incontinence, No Urgency, No Flank Pain Musculoskeletal: No joint pain, No Myalgias, No Joint Swelling Skin: No Skin Lesions, No rash Neuro: No Weakness, No Numbness, No Paresthesias, No Loss of Consciousness, No Dizziness, No Headache Psych: As noted per HPI Heme/Lymph: No Bruising, No Bleeding,No Lymphadenopathy Endocrine: No Polyuria, No Polydipsia, No Temperature Intolerance Yes all other systems are reviewed and are negative PMFSH Past Medical History Medical History Adjustment disorder Anxiety Asthma Borderline personality disorder Depression GERD (gastroesophageal reflux disease) Increased BMI Injury, self-inflicted Intentional self-harm PTSD (post-traumatic stress disorder) Recurrent major depression-severe Schizoaffective disorder Self-harming behavior Suicidal ideation Suicidal ideation Social History Social History Household Members: Other Housing: House Alcohol intake: unknown Smoking Status: Current every day smoker Tobacco Type: Cigarette Packs Per Day: 0.5 Cigarettes Per Day: 1 Years Smoked: 10 Second Hand Smoke Exposure: No Substance Use Type: Marijuana Advance Directives: No Advance Directives Information Provided: Yes service: No Physical Exam Vital Signs: Vital Signs: Last Vital Signs Temp 98.2 F 09/09/20 19:59 Pulse 101 H 09/09/20 19:59 Resp 17 09/09/20 19:59 BP 127/86 09/09/20 19:59 Pulse Ox 100 09/09/20 19:59 Body Mass Index 48.4 Reviewed Const: General: cooperative and healthy appearing; No acute distress or intoxicated appearing Nutritional Appearance: average body habitus Orientation/consciousness: patient oriented x3 HENMT: Head: Yes normal to inspection Ears: hearing grossly normal bilaterally Eyes: General: appearance normal, both eyes and all related structures Visual Briseno: normal visual briseno by confrontation Neck: Neck: Yes normal visual inspection, No positive Brudzinski's sign, No positive Kernig's sign and No tender Thyroid: Thyroid normal Chest: Chest palpation & inspection: normal inspection of the chest Resp: Effort & Inspection: normal respiratory effort Cardio: Jugular venous distension: no JVD GI: Inspection: Yes normal to inspection Percussion: Yes normal to percussion Auscultation: normal bowel sounds : General: Yes no CVA tenderness Back/Spine/Pelvis: Back: no CVA tenderness Skin: General skin exam: no rashes or lesions noted Neuro: General: patient oriented x3 Extrem: General: Yes normal to inspection Course Course Course Narrative: States overall by situation with staff leading to her feeling anxious and vague SI. Denies taking any extra medications. Basic labs and EKG ordered. She is calm cooperative and smiling and conversant with staff. She was seen here earlier for vague URI symptoms and had a negative COVID as well as EKG and chest x-ray those were reviewed with her. Consultations Consultation #1: Patient evaluated care team this is a situation episode patient very familiar MDM - Overdose Lab Data Result diagrams: 09/09/20 20:10 09/09/20 20:10 Labs: Lab Results 09/09/20 09/09/20 Range/Units 20:10 20:10 WBC 6.3 (4.8-10.8) X10*3/uL RBC 4.06 L (4.20-5.50) X10*6/uL Hgb 11.0 L (12.0-16.0) g/dl Hct 35.0 L (37-47) % MCV 86.2 (80-98) fL MCH 27.1 (27.0-33.0) pg MCHC 31.4 (31.0-35.0) g/dl RDW 14.0 (11.0-16.0) % Plt Count 329 (160-400) X10*3/uL MPV 10.1 (9.4-12.3) fL Immature Gran % (Auto) 0.3 (0.0-0.4) % Neut % (Auto) 59.4 (45-73) % Lymph % (Auto) 35.5 (20-40) % Mcdowell % (Auto) 4.6 (2-11) % Eos % (Auto) 0.0 (0-4) % Baso % (Auto) 0.2 (0-2) % Lymph # (Auto) 2.2 (1.2-4.9) X10*3/uL Mcdowell # (Auto) 0.3 (0.1-1.2) X10*3/uL Eos # (Auto) 0.0 (0.0-0.4) X10*3/uL Baso # (Auto) 0.0 (0.0-0.2) X10*3/uL Abs Immat Gran (auto) 0.02 (0.00-0.03) X10*3/uL Absolute Neuts (auto) 3.8 (2.0-8.3) X10*3/uL Absolute Nucleated RBC 0.000 (0.0-0.012) X10*3/uL Nucleated RBC % (auto) 0.0 (0.0-0.2) /100WBC Sodium 140 (135-145) mmol/L Potassium 4.0 (3.3-5.1) mmol/l Chloride 105 (96-108) mmol/L Carbon Dioxide 27 (22-29) mmol/L Anion Gap 12 (12-20) BUN 10 (9-16) mg/dL Creatinine 0.77 (0.5-1.4) mg/dL Estim Creat Clear Calc 112.9 Estimated GFR > 60 Random Glucose 87 (60-115) mg/dL Calcium 9.0 (8.4-10.2) mg/dL Total Bilirubin 0.2 (0.0-1.0) mg/dL AST 19 D (5-31) U/L ALT 17 (0-31) U/L Alkaline Phosphatase 84 (39-117) U/L Total Protein 6.8 (6.5-8.0) g/dL Albumin 4.2 (3.5-5.0) g/dL Salicylates < 5.0 L (15-30) mg/dL Acetaminophen 2 (<30) mcg/mL Discharge Plan Discharge Clinical Impression: Recurrent major depression-severe, Bipolar 1 disorder Patient Disposition: Home, Self-Care Instructions: Depression (ED), Anxiety (ED) Additional Instructions: Follow-up with her outpatient providers discussed Return if any concerns or worsening symptoms Thank you Prescriptions: No Action fluconazole 100 mg Tablet 100 mg PO DAILY 5 Days Qty: 5 RF: 0 cyproheptadine 4 mg Tablet 4 mg PO BEDTIME 30 Days Qty: 30 RF: 0 chlorpromazine 100 mg Tablet 100 mg PO BEDTIME Qty: 30 RF: 0 haloperidol 1 mg Tablet 2 mg PO TID 30 Days Qty: 120 RF: 0 lorazepam 1 mg Tablet 1 mg PO BEDTIME 30 Days Qty: 30 RF: 0 lorazepam 1 mg Tablet 1 mg PO TID PRN (Reason: Anxiety/Restlessness ) 30 Days Qty: 90 RF: 0 mirtazapine [Remeron] 30 mg tablet 30 mg PO BEDTIME 30 Days Qty: 30 RF: 0 trazodone 50 mg Tablet 50 mg PO BEDTIME PRN (Reason: Insomnia) 30 Days Qty: 30 RF: 0 naltrexone 50 mg Tablet 50 mg PO DAILY 30 Days Qty: 30 RF: 0 prazosin 1 mg Capsule 2 mg PO DAILY@1200 30 Days Qty: 60 RF: 0 propranolol 10 mg Tablet 10 mg PO TID 30 Days Qty: 90 RF: 0 chlorpromazine 25 mg Tablet 100 mg PO Q6H PRN (Reason: Agitation) 30 Days Qty: 120 RF: 0 olanzapine 10 mg tablet 10 mg PO BEDTIME 30 Days Qty: 30 RF: 0 gabapentin 600 mg tablet 600 mg PO TID 30 Days Qty: 90 RF: 0 haloperidol 5 mg tablet 1 tab PO BID PRN (Reason: psychosis) Qty: 60 RF: 0 hydroxyzine pamoate 50 mg Capsule 50 mg PO TID PRN (Reason: Anxiety) Qty: 90 RF: 0 lithium carbonate 300 mg Tablet Extended Release 600 mg PO BEDTIME Qty: 30 RF: 0 acetaminophen 500 mg tablet 650 mg PO Q6H PRN (Reason: pain) 30 Days Qty: 90 RF: 0 prazosin 5 mg Capsule 5 mg PO BEDTIME 30 Days Qty: 30 RF: 0 docusate sodium 100 mg Capsule 200 mg PO BID 30 Days Qty: 120 RF: 0 omeprazole 20 mg Capsule,Delayed Release(Dr/Ec) 20 mg PO DAILY@0630 30 Days Qty: 30 RF: 0 ibuprofen 600 mg tablet 1 tab PO QID PRN (Reason: severe pain) Qty: 90 RF: 0 albuterol sulfate 90 mcg/actuation Hfa Aerosol Inhaler 2 puff INHALATION Q4-6H PRN (Reason: Wheezing) 30 Days Qty: 8.5 RF: 1 duloxetine 60 mg Capsule,Delayed Release(Dr/Ec) 60 mg PO DAILY 30 Days Qty: 30 RF: 0 haloperidol 5 mg Tablet 5 mg PO BID PRN (Reason: psychosis) 30 Days Qty: 60 RF: 0 nicotine 21 mg/24 hr patch 24 hour 1 patch transdermal DAILY 28 Days Qty: 28 RF: 0 polyethylene glycol 3350 17 gram/dose powder 17 g PO DAILY 30 Days Qty: 510 RF: 0 Referrals: George Mejia MD [Primary Care Provider] - 2 days Interventions: ED Discharge Assessment Last Done: 09/09/20 21:07
== END 2020-09-09 21:14 | disposition home or self-care (01) ==
PROVIDERS: Nurse Practitioner Primary Care; Emergency Provider Emergency Medicine; PCP Internal Medicine Sports Medicine
DX: F33.2 Major depressive disorder, recurrent severe without psychotic features (principal); F41.9 Anxiety disorder, unspecified; F60.3 Borderline personality disorder; Z91.5 Personal history of self-harm; R45.851 Suicidal ideations; F43.10 Post-traumatic stress disorder, unspecified; F17.210 Nicotine dependence, cigarettes, uncomplicated
CPT/HCPCS: 36415; 80053; 85025; 93005; 99283; 99284; G0480

== ENCOUNTER 2020-09-13 19:50 | Emergency (ER) | payer OTHER, SELFPAY ==
[2020-09-13 20:16] VITALS: BP 147/72; PULSE 105; RESP 18; TEMP 36.8; O2SAT 97; BMI 48.4
--- NOTE | 2020-09-13 20:56 | ED_ITS ---
HPI - General Adult General Chief complaint: Nausea/Vomiting/Diarrhea Stated complaint: ANXIETY Time Seen by Provider: 09/13/20 20:55 Source: patient Mode of arrival: EMS Limitations: no limitations History of Present Illness HPI narrative: Patient with borderline personality disorder/depression/anxiety well known to us comes here for nausea headache since morning also complaining of chronic diarrhea is going on for few weeks. Patient denies any significant abdominal pain feels cramping no fever no cough no shortness of breath patient was tested negative for COVID on 09/09 Related Data Previous Rx's Medication Instructions Recorded acetaminophen 650 mg PO Q6H PRN 30 Days #90 tab 08/19/20 albuterol sulfate 2 puff INHALATION Q4-6H PRN 30 08/19/20 Days #8.5 g chlorpromazine 100 mg PO BEDTIME #30 tab 08/19/20 chlorpromazine 100 mg PO Q6H PRN 30 Days #120 tab 08/19/20 cyproheptadine 4 mg PO BEDTIME 30 Days #30 tab 08/19/20 docusate sodium 200 mg PO BID 30 Days #120 cap 08/19/20 duloxetine 60 mg PO DAILY 30 Days #30 cap 08/19/20 fluconazole 100 mg PO DAILY 5 Days #5 tab 08/19/20 gabapentin 600 mg PO TID 30 Days #90 tab 08/19/20 haloperidol 1 tab PO BID PRN #60 tab 08/19/20 haloperidol 2 mg PO TID 30 Days #120 tab 08/19/20 haloperidol 5 mg PO BID PRN 30 Days #60 tab 08/19/20 hydroxyzine pamoate 50 mg PO TID PRN #90 cap 08/19/20 ibuprofen 1 tab PO QID PRN #90 tab 08/19/20 lithium carbonate 600 mg PO BEDTIME #30 tab 08/19/20 lorazepam 1 mg PO BEDTIME 30 Days #30 tab 08/19/20 lorazepam 1 mg PO TID PRN 30 Days #90 tab 08/19/20 mirtazapine [Remeron] 30 mg PO BEDTIME 30 Days #30 tab 08/19/20 naltrexone 50 mg PO DAILY 30 Days #30 tab 08/19/20 nicotine 1 patch TRANSDERMAL DAILY 28 Days 08/19/20 #28 ea olanzapine 10 mg PO BEDTIME 30 Days #30 tab 08/19/20 omeprazole 20 mg PO DAILY@0630 30 Days #30 cap 08/19/20 polyethylene glycol 3350 17 g PO DAILY 30 Days #510 g 08/19/20 prazosin 2 mg PO DAILY@1200 30 Days #60 cap 08/19/20 prazosin 5 mg PO BEDTIME 30 Days #30 cap 08/19/20 propranolol 10 mg PO TID 30 Days #90 tab 08/19/20 trazodone 50 mg PO BEDTIME PRN 30 Days #30 08/19/20 tab Allergies Allergy/AdvReac Type Severity Reaction Status Date / Time carbamazepine [From TEGRETOL] AdvReac Unknown NAUSEA & Verified 09/13/20 20:20 VOMITING topiramate [From TOPAMAX] AdvReac Unknown NAUSEA & Verified 09/13/20 20:20 VOMITING Review of Systems Review of Systems: Constitutional : No Weight loss, No Fever, No Chills ENT/Mouth : No sore throat, No Rhinorrhea Eyes: No Eye Pain, No Swelling Cardiovascular : No Chest Pain, no palpitations Respiratory : No Cough, No Sputum, no shortness of breath Gastrointestinal : +Nausea, No Vomiting, + Diarrhea, No abdominal Pain, no black stools Genitourinary : No Dysuria, No Urinary Frequency Musculoskeletal : No joint pain, No Myalgias, No Joint Swelling Skin : No Skin Lesions, No rash Neuro : No Weakness, No Numbness, No Dizziness, +Headache Psych : No Anxiety/Panic, No Depression Heme/Lymph: No Bruising, No Lymphadenopathy Endocrine : No Polyuria, No Polydipsia All other systems reviewed and are negative [facility] Past Medical History Medical History Adjustment disorder Anxiety Asthma Borderline personality disorder Depression GERD (gastroesophageal reflux disease) Increased BMI Injury, self-inflicted Intentional self-harm PTSD (post-traumatic stress disorder) Recurrent major depression-severe Schizoaffective disorder Self-harming behavior Suicidal ideation Suicidal ideation Social History Social History Household Members: Other Housing: House Alcohol intake: unknown Smoking Status: Current every day smoker Tobacco Type: Cigarette Packs Per Day: 0.5 Cigarettes Per Day: 1 Years Smoked: 10 Second Hand Smoke Exposure: No Substance Use Type: Marijuana Advance Directives: No Advance Directives Information Provided: Yes service: No Physical Exam Vital Signs: Vital Signs: Last Vital Signs Temp 98.3 F 09/13/20 20:16 Pulse 105 H 09/13/20 20:16 Resp 18 09/13/20 20:16 BP 147/72 H 09/13/20 20:16 Pulse Ox 97 09/13/20 20:16 Body Mass Index 48.4 Appearance: Alert. Oriented X3. No acute distress. Eyes: Pupils equal, round and reactive to light. ENT: Pharynx normal. Neck: Normal inspection. Neck supple. CVS: Normal heart rate and rhythm. Pulses normal. Respiratory: No respiratory distress. Breath sounds normal. Abdomen: Soft and nontender. Bowel sounds are present, no mass palpable, no CVA tenderness Skin: Skin warm and dry. Normal skin color. Normal skin turgor. Extremities: No lower extremity edema. Neuro: Oriented X 3. No motor deficit. No sensory deficit. Course Course Course Narrative: Patient nonspecific headache possible migraine given tramadol and Zofran looks comfortable will discharge her home other symptoms are likely from anxiety Discharge Plan Discharge Clinical Impression: Migraine headache Qualifiers: Migraine type: without aura Status migrainosus presence: without status migrain osus Intractability: not intractable Qualified Code(s): G43.009 - Migraine without aura, not intractable, without status migrainosus Patient Disposition: Home, Self-Care Instructions: Migraine Headache (ED) Additional Instructions: Rest at home. Follow with PCP if not better Tylenol for headache Prescriptions: No Action fluconazole 100 mg Tablet 100 mg PO DAILY 5 Days Qty: 5 RF: 0 cyproheptadine 4 mg Tablet 4 mg PO BEDTIME 30 Days Qty: 30 RF: 0 chlorpromazine 100 mg Tablet 100 mg PO BEDTIME Qty: 30 RF: 0 haloperidol 1 mg Tablet 2 mg PO TID 30 Days Qty: 120 RF: 0 lorazepam 1 mg Tablet 1 mg PO BEDTIME 30 Days Qty: 30 RF: 0 lorazepam 1 mg Tablet 1 mg PO TID PRN (Reason: Anxiety/Restlessness ) 30 Days Qty: 90 RF: 0 mirtazapine [Remeron] 30 mg tablet 30 mg PO BEDTIME 30 Days Qty: 30 RF: 0 trazodone 50 mg Tablet 50 mg PO BEDTIME PRN (Reason: Insomnia) 30 Days Qty: 30 RF: 0 naltrexone 50 mg Tablet 50 mg PO DAILY 30 Days Qty: 30 RF: 0 prazosin 1 mg Capsule 2 mg PO DAILY@1200 30 Days Qty: 60 RF: 0 propranolol 10 mg Tablet 10 mg PO TID 30 Days Qty: 90 RF: 0 chlorpromazine 25 mg Tablet 100 mg PO Q6H PRN (Reason: Agitation) 30 Days Qty: 120 RF: 0 olanzapine 10 mg tablet 10 mg PO BEDTIME 30 Days Qty: 30 RF: 0 gabapentin 600 mg tablet 600 mg PO TID 30 Days Qty: 90 RF: 0 haloperidol 5 mg tablet 1 tab PO BID PRN (Reason: psychosis) Qty: 60 RF: 0 hydroxyzine pamoate 50 mg Capsule 50 mg PO TID PRN (Reason: Anxiety) Qty: 90 RF: 0 lithium carbonate 300 mg Tablet Extended Release 600 mg PO BEDTIME Qty: 30 RF: 0 acetaminophen 500 mg tablet 650 mg PO Q6H PRN (Reason: pain) 30 Days Qty: 90 RF: 0 prazosin 5 mg Capsule 5 mg PO BEDTIME 30 Days Qty: 30 RF: 0 docusate sodium 100 mg Capsule 200 mg PO BID 30 Days Qty: 120 RF: 0 omeprazole 20 mg Capsule,Delayed Release(Dr/Ec) 20 mg PO DAILY@0630 30 Days Qty: 30 RF: 0 ibuprofen 600 mg tablet 1 tab PO QID PRN (Reason: severe pain) Qty: 90 RF: 0 albuterol sulfate 90 mcg/actuation Hfa Aerosol Inhaler 2 puff INHALATION Q4-6H PRN (Reason: Wheezing) 30 Days Qty: 8.5 RF: 1 duloxetine 60 mg Capsule,Delayed Release(Dr/Ec) 60 mg PO DAILY 30 Days Qty: 30 RF: 0 haloperidol 5 mg Tablet 5 mg PO BID PRN (Reason: psychosis) 30 Days Qty: 60 RF: 0 nicotine 21 mg/24 hr patch 24 hour 1 patch transdermal DAILY 28 Days Qty: 28 RF: 0 polyethylene glycol 3350 17 gram/dose powder 17 g PO DAILY 30 Days Qty: 510 RF: 0
[2020-09-13 21:55] VITALS: BP 134/87; PULSE 89; RESP 16; TEMP 37.1; O2SAT 98
[2020-09-13] MEDS: traMADoL HCL 50 MG TABLET PO (22:00)
[2020-09-13] MEDS: Dicyclomine HCl 10 MG CAPSULE 20 MG PO (22:00)
== END 2020-09-13 22:46 | disposition home or self-care (01) ==
PROVIDERS: Emergency Provider Internal Medicine; PCP Internal Medicine Sports Medicine
DX: G43.009 Migraine without aura, not intractable, without status migrainosus (principal); F41.1 Generalized anxiety disorder; R11.0 Nausea; F17.210 Nicotine dependence, cigarettes, uncomplicated; Z71.6 Tobacco abuse counseling
CPT/HCPCS: 99283; 99284

== ENCOUNTER 2020-09-18 06:01 | Day surgery (SDC) | payer OTHER, SELFPAY ==
[2020-09-18 06:23] VITALS: BMI 48.4
[2020-09-18 06:28] VITALS: BP 149/82; PULSE 97; RESP 17; TEMP 36.2; O2SAT 96
--- NOTE | 2020-09-18 06:51 | HO.ANESPROP2 ---
[facility] Past Medical History Medical History Adjustment disorder Anxiety Asthma Borderline personality disorder Depression GERD (gastroesophageal reflux disease) Increased BMI Injury, self-inflicted Intentional self-harm PTSD (post-traumatic stress disorder) Recurrent major depression-severe Schizoaffective disorder Self-harming behavior Suicidal ideation Suicidal ideation Social History Social History Household Members: Other Housing: House Alcohol intake: unknown Smoking Status: Current every day smoker Tobacco Type: Cigarette Packs Per Day: 0.5 Cigarettes Per Day: 1 Years Smoked: 10 Smoked in Last 30 Days: Yes Second Hand Smoke Exposure: No Substance Use Type: Marijuana Have you been hit, kicked, punched, or otherwise hurt by someone within the past year? If so, by whom?: No Advance Directives: No Advance Directives Information Provided: Yes Recently lost weight without trying: No service: No Meds Allergies Allergy/AdvReac Type Severity Reaction Status Date / Time carbamazepine [From TEGRETOL] AdvReac Unknown NAUSEA & Verified 09/13/20 20:20 VOMITING topiramate [From TOPAMAX] AdvReac Unknown NAUSEA & Verified 09/13/20 20:20 VOMITING Exam Exam Date and Time: September 18, 2020 0651 Height,Weight and Vital Signs: Height 4 ft 11 in Weight 108.862 kg Last Vital Signs Temp 97.2 F 09/18/20 06:28 Pulse 97 09/18/20 06:28 Resp 17 09/18/20 06:28 BP 149/82 H 09/18/20 06:28 Pulse Ox 96 09/18/20 06:28 Airway Mallampati Class: II (Poor dention missing some bottom left painful) TM Dist: >3cm Neck ROM: Full Heart: RRR Lungs: CTA BL Assessment and Plan Assessment Anesthesia Assessment: Anesthesia Plan Discussed and Chart Reviewed Final Anesthetic Review NPO: Yes ASA Class: III Final Preanesthetic Review: Meds/Allgs Chart Reviewed and Consent Obtained/Reviewed Patient Risk: Intermediate Procedure Risk: Intermediate Anesthetic Plan Anesthetic Plan: GA Disposition: Standard PACU
--- NOTE | 2020-09-18 07:12 | MHC.SHP ---
Pre-Procedural Eval Section A The patient is an INPATIENT: No Changes since office visit: Yes Patient answered all questions; No Cold of Flu in the past 2 weeks, No New Medical Problems and No Changes in Medication The History & Physical has been completed within 30 days and I have reviewed it.: Yes Section B Chief Complaint: Severe Depression Allergies: Allergies Allergy/AdvReac Type Severity Reaction Status Date / Time carbamazepine [From TEGRETOL] AdvReac Unknown NAUSEA & Verified 09/13/20 20:20 VOMITING topiramate [From TOPAMAX] AdvReac Unknown NAUSEA & Verified 09/13/20 20:20 VOMITING Plan I have reviewed the history and physical and performed a pertinent physical examination on my patient. No changes have occurred unless specified.
--- NOTE | 2020-09-18 07:13 | HO.ECTPROC ---
ECT Procedure Note Diagnosis/Treatment Diagnosis: Major Depressive Disorder Previous ECT Date: 08/19/20 Current Treatment Number: 2 Treatment: Maintenance (09/23) Interval Clinical Notes: pt stable doing well ECT Settings Device: THYMATRON DGx Electrode Placement: Bitemporal Program/Pulse Width: 0.50 Energy Percent: 100 Seizure Duration By EEG (in seconds): 31 Medications Administration General Anesthetic: Etomidate (14) Muscle Relaxant: Succinylcholine (100) Ancillary Medications Anti-emetics: Zofran - Pre ECT Miscillaneous Medications: Propofol (30 mg post) and Flumazenil Airway Management Airway Management: Bag Mask Ventilation Treatment Recommendations No Changes Recommended: No change Notes: follow up 4 weeks maint tx Pt Tolerated Procedure w/o Issue: Yes
[2020-09-18 07:32] VITALS: BP 135/88; PULSE 103; RESP 16; TEMP 36.2; O2SAT 96
[2020-09-18 07:37] VITALS: BP 139/82; PULSE 98; RESP 20; O2SAT 95
[2020-09-18 07:42] VITALS: BP 133/80; PULSE 97; RESP 18; O2SAT 96
[2020-09-18 07:47] VITALS: BP 142/82; PULSE 95; RESP 18; O2SAT 95
[2020-09-18 08:11] VITALS: BP 131/85; PULSE 93; RESP 17; O2SAT 96
--- NOTE | 2020-09-18 08:21 | HO.POSTANES ---
Post Anesthesia Evaluation Post Anesthesia Evaluation Vital Signs: Vital Signs Temp Pulse Resp BP Pulse Ox 09/18/20 08:11 93 17 131/85 96 09/18/20 07:47 95 18 142/82 H 95 09/18/20 07:42 97 18 133/80 96 09/18/20 07:37 98 20 139/82 95 09/18/20 07:32 97.2 F 103 H 16 135/88 96 09/18/20 06:28 97.2 F 97 17 149/82 H 96 Anesthesia: General Mental Status: Awake Pain Control: Satisfactory Nausea/Vomiting: None Hydration: Adequate Anesthesia-Related Issues: No Anes. Related Issues
== END 2020-09-18 09:00 | disposition home or self-care (01) ==
PROVIDERS: PCP Internal Medicine Sports Medicine; Visit Provider Psychiatry & Neurology Psychiatry
PROC: (CPT 90870; principal; 2020-09-18 07:30)
DX: F33.2 Major depressive disorder, recurrent severe without psychotic features (principal); Z88.8 Allergy status to other drugs, medicaments and biological substances; F43.10 Post-traumatic stress disorder, unspecified; F43.20 Adjustment disorder, unspecified; F60.3 Borderline personality disorder; F25.9 Schizoaffective disorder, unspecified; Z91.5 Personal history of self-harm; R45.851 Suicidal ideations; F17.210 Nicotine dependence, cigarettes, uncomplicated; F12.90 Cannabis use, unspecified, uncomplicated
CPT/HCPCS: 90870; J0330; J1642; J1885; J2405

== ENCOUNTER 2020-09-20 06:01 | Day surgery (SDC) | payer OTHER, SELFPAY ==
[2020-09-20 06:37] VITALS: BMI 48.4
--- NOTE | 2020-09-20 07:35 | HO.ECTPROC ---
ECT Procedure Note Diagnosis/Treatment Diagnosis: Major Depressive Disorder Previous ECT Date: 09/18/20 Treatment: Maintenance Interval Clinical Notes: pt feeling well ECT Settings Device: THYMATRON DGx Electrode Placement: Bitemporal Seizure Duration By EEG (in seconds): 11 Medications Administration General Anesthetic: Etomidate (14) Muscle Relaxant: Succinylcholine (100) Ancillary Medications Anti-emetics: Zofran - Pre ECT Miscillaneous Medications: Propofol and Flumazenil Airway Management Airway Management: Bag Mask Ventilation Treatment Recommendations Notes: lower etomidate 12 mg Pt Tolerated Procedure w/o Issue: Yes
[2020-09-20 07:52] VITALS: BP 147/70; PULSE 72; RESP 16; TEMP 36.6; O2SAT 96
--- NOTE | 2020-09-20 07:54 | HO.ANESPROP2 ---
[facility] Past Medical History Medical History Adjustment disorder Anxiety Asthma Borderline personality disorder Depression GERD (gastroesophageal reflux disease) Increased BMI Injury, self-inflicted Intentional self-harm PTSD (post-traumatic stress disorder) Recurrent major depression-severe Schizoaffective disorder Self-harming behavior Suicidal ideation Suicidal ideation Social History Social History Household Members: Other Housing: House Alcohol intake: unknown Smoking Status: Current every day smoker Tobacco Type: Cigarette Packs Per Day: 0.5 Cigarettes Per Day: 1 Years Smoked: 10 Second Hand Smoke Exposure: No Substance Use Type: Marijuana Have you been hit, kicked, punched, or otherwise hurt by someone within the past year? If so, by whom?: No Advance Directives: No Advance Directives Information Provided: Yes Recently lost weight without trying: No service: No Meds Allergies Allergy/AdvReac Type Severity Reaction Status Date / Time carbamazepine [From TEGRETOL] AdvReac Unknown NAUSEA & Verified 09/13/20 20:20 VOMITING topiramate [From TOPAMAX] AdvReac Unknown NAUSEA & Verified 09/13/20 20:20 VOMITING Exam Exam Date and Time: September 20, 2020 0754 Height,Weight and Vital Signs: Height 4 ft 11 in Weight 108.912 kg Assessment and Plan Assessment Anesthesia Assessment: Anesthesia Plan Discussed and Chart Reviewed Final Anesthetic Review NPO: Yes ASA Class: III Final Preanesthetic Review: No Changes in Pt Med Stat, Meds/Allgs Chart Reviewed, Consent Obtained/Reviewed and Anes Risks/Benef Reviewed Patient Risk: High Procedure Risk: Low Anesthetic Plan Anesthetic Plan: GA Disposition: Standard PACU
[2020-09-20 07:57] VITALS: BP 145/86; PULSE 93; RESP 16; O2SAT 97
[2020-09-20 08:02] VITALS: BP 129/80; PULSE 97; RESP 18; O2SAT 97
[2020-09-20 08:07] VITALS: BP 116/66; PULSE 99; RESP 18; O2SAT 98
[2020-09-20 08:23] VITALS: BP 128/85; PULSE 97; RESP 18; TEMP 36.2; O2SAT 95
--- NOTE | 2020-09-20 08:23 | HO.POSTANES ---
Post Anesthesia Evaluation Post Anesthesia Evaluation Vital Signs: Vital Signs Temp Pulse Resp BP Pulse Ox 09/20/20 08:07 99 18 116/66 98 09/20/20 08:02 97 18 129/80 97 09/20/20 07:57 93 16 145/86 H 97 09/20/20 07:52 97.8 F 72 16 147/70 H 96 Anesthesia: General Mental Status: Awake Pain Control: Satisfactory Nausea/Vomiting: None Hydration: Adequate Anesthesia-Related Issues: No Anes. Related Issues
== END 2020-09-20 09:13 | disposition home or self-care (01) ==
PROVIDERS: PCP Internal Medicine Sports Medicine; Visit Provider Psychiatry & Neurology Psychiatry
PROC: (CPT 90870; principal; 2020-09-20 07:00)
DX: F33.2 Major depressive disorder, recurrent severe without psychotic features (principal)
CPT/HCPCS: 90870; J0330; J1642; J1885; J2405

== ENCOUNTER 2020-10-13 18:16 | Emergency (ER) | payer OTHER, SELFPAY ==
[2020-10-13 18:36] VITALS: BP 118/78; BP 160/98; PULSE 90; PULSE 92; RESP 18; TEMP 36.6; O2SAT 98; O2SAT 99; BMI 52.4
--- NOTE | 2020-10-13 18:45 | PC.NURSE ---
patient a&ox3, pt states she is SI has no plan, has been rt arm cutting for a few days with a blade, vitals are currently stable, sitter at bedside, will continue to monitor.
--- NOTE | 2020-10-13 19:30 | PC.NURSE ---
pt has rt arm superficial lacerations related to self harm/cutting, provider assessed and dressing applied
[2020-10-13 19:45] LABS: UPreg QC Valid YES; Urine Pregnancy NEGATIVE (NEGATIVE)
[2020-10-13 20:06] LABS: Ethanol < 10 mg/dL
[2020-10-13 20:08] LABS: Amphetamine Screen Urine Not Detected (Not Detect); Barbiturates, Urine Not Detected (Not Detect); Benzodiazepines Screen Urine Not Detected (Not Detect); Cannabinoid Screen Urine POSITIVE (Not Detect); Cocaine Screen Urine Not Detected (Not Detect); Opiate Screen Urine Not Detected (Not Detect); Phencyclidine Screen Urine Not Detected (Not Detect)
--- NOTE | 2020-10-13 20:26 | MHC.CARE ---
CARE team met with pt in 22H to provide support and consultation secondary to pt's arrival to ED via ambulance after engaging in self harm. Pt reported that the court case for her sister's murder was a week ago, she she hasn't heard the outcomes from it yet, which has been increasing pt's anxiety. Pt shared that she has moved to a new assisted, which pt has been advocating for. Pt reported that the program staff are more supportive and that pt is able to have more privacy and autonomy in her daily life. Pt reported that she has also been going through some medication changes over the past few weeks, which pt feels have had positive effect so far. Pt denied experiencing suicidal ideation or wanting to , indicating that her engagement in self harm is a means of coping (pt has a long hx of cutting, with many deep and raised scars on her arms). Pt stated that her reasons for coming to the hospital were to have her cuts, superficial in nature, checked and cleaned and to speak with a counselor in order to process her current feelings and complicated emotions. ED provider updated re: consultation. Plan is for pt to be discharged from ED and return to assisted. If pt is unable to get a ride from assisted staff, CARE team can request a lyft for transport.
--- NOTE | 2020-10-13 20:43 | ED_ITS ---
HPI - Psych General Chief Complaint: Psychiatric Symptoms Stated Complaint: SI Source: patient Mode of arrival: ambulatory Limitations: no limitations History of Present Illness HPI Narrative: Patient presents to ED for depression and suicidal ideation with no plan. Patient states she was triggered because her sister's murder case began this past week. Patient states she cut her arm this morning because she was stressed. Patient states she usually cause her arms when she is depressed but is not willing to go all the way to end her life. Patient is from a jail Related Data Previous Rx's Medication Instructions Recorded acetaminophen 650 mg PO Q6H PRN 30 Days #90 tab 08/19/20 albuterol sulfate 2 puff INHALATION Q4-6H PRN 30 08/19/20 Days #8.5 g chlorpromazine 100 mg PO BEDTIME #30 tab 08/19/20 chlorpromazine 100 mg PO Q6H PRN 30 Days #120 tab 08/19/20 cyproheptadine 4 mg PO BEDTIME 30 Days #30 tab 08/19/20 docusate sodium 200 mg PO BID 30 Days #120 cap 08/19/20 duloxetine 60 mg PO DAILY 30 Days #30 cap 08/19/20 fluconazole 100 mg PO DAILY 5 Days #5 tab 08/19/20 gabapentin 600 mg PO TID 30 Days #90 tab 08/19/20 haloperidol 1 tab PO BID PRN #60 tab 08/19/20 haloperidol 2 mg PO TID 30 Days #120 tab 08/19/20 haloperidol 5 mg PO BID PRN 30 Days #60 tab 08/19/20 hydroxyzine pamoate 50 mg PO TID PRN #90 cap 08/19/20 ibuprofen 1 tab PO QID PRN #90 tab 08/19/20 lithium carbonate 600 mg PO BEDTIME #30 tab 08/19/20 lorazepam 1 mg PO BEDTIME 30 Days #30 tab 08/19/20 lorazepam 1 mg PO TID PRN 30 Days #90 tab 08/19/20 mirtazapine [Remeron] 30 mg PO BEDTIME 30 Days #30 tab 08/19/20 naltrexone 50 mg PO DAILY 30 Days #30 tab 08/19/20 nicotine 1 patch TRANSDERMAL DAILY 28 Days 08/19/20 #28 ea olanzapine 10 mg PO BEDTIME 30 Days #30 tab 08/19/20 omeprazole 20 mg PO DAILY@0630 30 Days #30 cap 08/19/20 polyethylene glycol 3350 17 g PO DAILY 30 Days #510 g 08/19/20 prazosin 2 mg PO DAILY@1200 30 Days #60 cap 08/19/20 prazosin 5 mg PO BEDTIME 30 Days #30 cap 08/19/20 propranolol 10 mg PO TID 30 Days #90 tab 08/19/20 trazodone 50 mg PO BEDTIME PRN 30 Days #30 08/19/20 tab Allergies Allergy/AdvReac Type Severity Reaction Status Date / Time carbamazepine [From TEGRETOL] AdvReac Unknown NAUSEA & Verified 09/13/20 20:20 VOMITING topiramate [From TOPAMAX] AdvReac Unknown NAUSEA & Verified 09/13/20 20:20 VOMITING Review of Systems Review of Systems: Yes all other systems are reviewed and are negative Constitutional: Constitutional: Reports as per HPI and Reports no additional constitutional complaints Eyes: Eyes: Reports as per HPI and Reports no additional eye complaints ENT: Reports system reviewed and no additional complaints, except as documented and Reports as per HPI Cardiovascular: Cardiovascular: Reports as per HPI and Reports no additional cardiovascular complaints Respiratory: Respiratory: Reports as per HPI and Reports no additional respiratory complaints Gastrointestinal: Gastrointestinal: Reports as per HPI and Reports no additional gastrointestinal complaints Genitourinary: Genitourinary: Reports no additional female genitourinary complaints and Reports as per HPI Musculoskeletal: Musculoskeletal: Reports no additional musculoskeletal complaints and Reports as per HPI Neurologic: Reports system reviewed and no additional complaints, except as documented and Reports as per HPI Psychiatric: Psychiatric: Reports no additional psychiatric complaints, Reports as per HPI and Reports depression PMFSH Past Medical History Medical History Adjustment disorder Anxiety Asthma Borderline personality disorder COPD (chronic obstructive pulmonary disease) Depression GERD (gastroesophageal reflux disease) Increased BMI Injury, self-inflicted Intentional self-harm PTSD (post-traumatic stress disorder) Recurrent major depression-severe Schizoaffective disorder Self-harming behavior Suicidal ideation Suicidal ideation Social History Social History Household Members: Other Housing: House Alcohol intake: never Smoking Status: Current every day smoker Tobacco Type: Cigarette Packs Per Day: 0.5 Cigarettes Per Day: 1 Years Smoked: 10 Second Hand Smoke Exposure: No Substance Use Type: Marijuana Substance Use Frequency: Daily Advance Directives: No Advance Directives Information Provided: Yes service: No Physical Exam Vital Signs: Vital Signs: Last Vital Signs Temp 97.8 F 10/13/20 18:36 Pulse 92 10/13/20 18:36 Resp 18 10/13/20 18:36 BP 118/78 10/13/20 18:36 Pulse Ox 99 10/13/20 18:36 Body Mass Index 52.4 Const: General: cooperative, healthy appearing, comfortable, no acute distress, well developed, alert and awake Orientation/consciousness: patient oriented x3 HENMT: Head: Yes normal to inspection, Yes No palpable skull fracture present, Yes normocephalic, Yes atraumatic, No abrasion, No Bello's sign, No contusion, No cranial bruits, No hematoma, No laceration, No occipital foramen tenderness, No palpable skull fracture, No raccoon eyes, No scalp lesion, No scalp tenderness and No Temporal artery tenderness present Eyes: General: appearance normal, both eyes and all related structures Neck: Neck: Yes normal visual inspection, Yes full ROM, Yes no lymphadenopathy, Yes no meningeal signs, Yes trachea midline, Yes supple and No tender Chest: Chest palpation & inspection: normal inspection of the chest and normal palpation of entire chest wall Resp: Effort & Inspection: normal respiratory effort and able to speak in complete sentences Cardio: Jugular venous distension: no JVD Heart sounds: S1 normal heart sound present and S2 normal heart sound present GI: Inspection: Yes normal to inspection and No abdominal wall ecchymosis Palpation (GI): Soft to palpation, not firm, nontender, no guarding and not rigid : General: No CVA tenderness and Yes no CVA tenderness Back/Spine/Pelvis: Back: no CVA tenderness, No CVA tenderness and No back ten derness Skin: Other: Superficial abrasions on right forearm Neuro: General: patient oriented x3, gait normal, no meningeal signs and CN's II-XI intact bilaterally Cranial nerves: Yes CN's II-XII intact bilaterally Extrem: General: Yes normal to inspection and Yes full ROM Psych: Appearance: grossly normal, well kempt and not disheveled Speech and movement: Normal speech and movement present Thought content: suicidality and no homicidality Course Course Course Narrative: Patient will be given Tdap. No laceration repair indicated. Patient state denies suicidal/homicidal ideations during evaluation. Will speak to Care team financial management consultant to evaluate patient. Wound was cleaned. Reevaluation(s) Reevaluation #1: Patient evalauted by Care team financial management consultant Abbe who states patient is safe for discharge. She states patient is not actively suicidal or homicidal. She states patient is at her baseline. She states patient has good support at the jail. Time: 20:56 MDM - Psych MDM Narrative Medical decision making narrative: Bipolar Lab Data Labs: Lab Results 10/13/20 10/13/20 10/13/20 Range/Units 19:28 19:28 19:38 Urine Test NEGATIVE (NEGATIVE) Urine Opiates Screen Not Detected (Not Detect) Ur Barbiturates Screen Not Detected (Not Detect) Ur Phencyclidine Scrn Not Detected (Not Detect) Ur Amphetamines Screen Not Detected (Not Detect) U Benzodiazepines Scrn Not Detected (Not Detect) Urine Cocaine Screen Not Detected (Not Detect) U Marijuana (THC) Screen POSITIVE H (Not Detect) Ethyl Alcohol < 10 mg/dL Discharge Plan Discharge Clinical Impression: Bipolar disorder Patient Disposition: Home, Self-Care Instructions: Bipolar Disorder (ED) Additional Instructions: REturn to the ED for suicidal/homicidal ideation, auditory/visual hallucinations, any physical complaints, or any any other concerning symptoms. FOllow up with PCP and theraprists. Prescriptions: No Action fluconazole 100 mg Tablet 100 mg PO DAILY 5 Days Qty: 5 RF: 0 cyproheptadine 4 mg Tablet 4 mg PO BEDTIME 30 Days Qty: 30 RF: 0 chlorpromazine 100 mg Tablet 100 mg PO BEDTIME Qty: 30 RF: 0 haloperidol 1 mg Tablet 2 mg PO TID 30 Days Qty: 120 RF: 0 lorazepam 1 mg Tablet 1 mg PO BEDTIME 30 Days Qty: 30 RF: 0 lorazepam 1 mg Tablet 1 mg PO TID PRN (Reason: Anxiety/Restlessness ) 30 Days Qty: 90 RF: 0 mirtazapine [Remeron] 30 mg tablet 30 mg PO BEDTIME 30 Days Qty: 30 RF: 0 trazodone 50 mg Tablet 50 mg PO BEDTIME PRN (Reason: Insomnia) 30 Days Qty: 30 RF: 0 naltrexone 50 mg Tablet 50 mg PO DAILY 30 Days Qty: 30 RF: 0 prazosin 1 mg Capsule 2 mg PO DAILY@1200 30 Days Qty: 60 RF: 0 propranolol 10 mg Tablet 10 mg PO TID 30 Days Qty: 90 RF: 0 chlorpromazine 25 mg Tablet 100 mg PO Q6H PRN (Reason: Agitation) 30 Days Qty: 120 RF: 0 olanzapine 10 mg tablet 10 mg PO BEDTIME 30 Days Qty: 30 RF: 0 gabapentin 600 mg tablet 600 mg PO TID 30 Days Qty: 90 RF: 0 haloperidol 5 mg tablet 1 tab PO BID PRN (Reason: psychosis) Qty: 60 RF: 0 hydroxyzine pamoate 50 mg Capsule 50 mg PO TID PRN (Reason: Anxiety) Qty: 90 RF: 0 lithium carbonate 300 mg Tablet Extended Release 600 mg PO BEDTIME Qty: 30 RF: 0 acetaminophen 500 mg tablet 650 mg PO Q6H PRN (Reason: pain) 30 Days Qty: 90 RF: 0 prazosin 5 mg Capsule 5 mg PO BEDTIME 30 Days Qty: 30 RF: 0 docusate sodium 100 mg Capsule 200 mg PO BID 30 Days Qty: 120 RF: 0 omeprazole 20 mg Capsule,Delayed Release(Dr/Ec) 20 mg PO DAILY@0630 30 Days Qty: 30 RF: 0 ibuprofen 600 mg tablet 1 tab PO QID PRN (Reason: severe pain) Qty: 90 RF: 0 albuterol sulfate 90 mcg/actuation Hfa Aerosol Inhaler 2 puff INHALATION Q4-6H PRN (Reason: Wheezing) 30 Days Qty: 8.5 RF: 1 duloxetine 60 mg Capsule,Delayed Release(Dr/Ec) 60 mg PO DAILY 30 Days Qty: 30 RF: 0 haloperidol 5 mg Tablet 5 mg PO BID PRN (Reason: psychosis) 30 Days Qty: 60 RF: 0 nicotine 21 mg/24 hr patch 24 hour 1 patch transdermal DAILY 28 Days Qty: 28 RF: 0 polyethylene glycol 3350 17 gram/dose powder 17 g PO DAILY 30 Days Qty: 510 RF: 0 Interventions: ED Discharge Assessment Last Done: 10/13/20 21:08 Discharge Date/Time: 10/13/20 21:22 Print Language: Mohawk
--- NOTE | 2020-10-13 21:20 | PC.NURSE ---
pt medicated per order
== END 2020-10-13 21:22 | disposition home or self-care (01) ==
PROVIDERS: Physician Assistant; Emergency Provider Internal Medicine; PCP Internal Medicine Sports Medicine
DX: F33.1 Major depressive disorder, recurrent, moderate (principal); R45.851 Suicidal ideations
CPT/HCPCS: 36415; 80307; 80320; 81025; 90471; 90715; 96372; 99284

== ENCOUNTER 2020-10-16 06:11 | Day surgery (SDC) | payer OTHER, SELFPAY ==
[2020-10-16 06:22] VITALS: BP 116/86; PULSE 105; RESP 20; TEMP 36.4; O2SAT 97; BMI 52.5
--- NOTE | 2020-10-16 07:15 | P.CONAN_ITS ---
[facility] Active Problems Active Problems: All Active Problems (Updated 10/14/20 @ 00:01 by Background Clive michele) Acute post-traumatic stress disorder (Chronic) Increased BMI (Acute) GERD (gastroesophageal reflux disease) (Acute) Recurrent major depression-severe (Acute) Borderline personality disorder (Acute) Past Medical History Medical History Adjustment disorder Anxiety Asthma Borderline personality disorder COPD (chronic obstructive pulmonary disease) Depression GERD (gastroesophageal reflux disease) Increased BMI Injury, self-inflicted Intentional self-harm PTSD (post-traumatic stress disorder) Recurrent major depression-severe Schizoaffective disorder Self-harming behavior Suicidal ideation Suicidal ideation Social History Social History Household Members: Other Housing: House Alcohol intake: never Smoking Status: Current every day smoker Tobacco Type: Cigarette Packs Per Day: 0.5 Cigarettes Per Day: 1 Years Smoked: 10 Second Hand Smoke Exposure: No Substance Use Type: Marijuana Advance Directives: No Advance Directives Information Provided: Yes service: No Meds Allergies Allergy/AdvReac Type Severity Reaction Status Date / Time carbamazepine [From TEGRETOL] AdvReac Unknown NAUSEA & Verified 09/13/20 20:20 VOMITING topiramate [From TOPAMAX] AdvReac Unknown NAUSEA & Verified 09/13/20 20:20 VOMITING Exam Exam Date and Time: October 16, 2020 0715 Height,Weight and Vital Signs: Height 4 ft 11 in Weight 118 kg Last Vital Signs Temp 97.6 F 10/16/20 06:22 Pulse 105 H 10/16/20 06:22 Resp 20 10/16/20 06:22 BP 116/86 10/16/20 06:22 Pulse Ox 97 10/16/20 06:22 Airway Mallampati Class: II TM Dist: >3cm Neck ROM: Full Heart: RRr Lungs: CTA BL Assessment and Plan Assessment Anesthesia Assessment: Anesthesia Plan Discussed and Chart Reviewed Final Anesthetic Review NPO: Yes ASA Class: III Final Preanesthetic Review: No Changes in Pt Med Stat and Consent Obtained/Reviewed Patient Risk: Intermediate Procedure Risk: Intermediate Anesthetic Plan Anesthetic Plan: GA Disposition: Standard PACU
--- NOTE | 2020-10-16 07:58 | MHC.SHP ---
Pre-Procedural Eval Section B Chief Complaint: depression Details of Present Illness: recurrent depression ptsd Relevant Family History (Specify if Yes): Yes Relevant Social History: None Present Medications: see Short Stay Collaborative assessment Medical History: Significant History History of Previous Operations: No relevant previous surgery (ect) Allergies: Allergies Allergy/AdvReac Type Severity Reaction Status Date / Time carbamazepine [From TEGRETOL] AdvReac Unknown NAUSEA & Verified 09/13/20 20:20 VOMITING topiramate [From TOPAMAX] AdvReac Unknown NAUSEA & Verified 09/13/20 20:20 VOMITING Review of Systems Sugical H&P ROS: Negative: Constitution, Cardiovascular and Respiratory Exam Surgical H&P Exam: Normal: Heart (rr), Normal: Lungs (clear) and Normal: Abdomen Plan Diagnosis/Plan: Unchanged I have reviewed the history and physical and performed a pertinent physical examination on my patient. No changes have occurred unless specified.
--- NOTE | 2020-10-16 08:02 | HO.ECTPROC ---
ECT Procedure Note Diagnosis/Treatment Date of Service: 10/16/20 Diagnosis: Major Depressive Disorder and Other (ptsd) Treatment: Maintenance Interval Clinical Notes: pt with sib but she states much improved generally with ect recent move to [facility] ECT Settings Device: THYMATRON DGx Electrode Placement: Bitemporal Program/Pulse Width: 0.50 Energy Percent: 100 Seizure Duration By EEG (in seconds): 36 Medications Administration General Anesthetic: Etomidate (12 mg) Muscle Relaxant: Succinylcholine (100) Ancillary Medications Anti-emetics: Zofran - Pre ECT Miscillaneous Medications: Flumazenil Airway Management Airway Management: Bag Mask Ventilation Treatment Recommendations No Changes Recommended: No change Electrode Placement: Bitemporal Notes: etomidate was lowered to 12 mg hyperventilation had adequate sz Pt Tolerated Procedure w/o Issue: Yes
[2020-10-16 08:22] VITALS: BP 125/94; PULSE 80; RESP 16; TEMP 36.4; O2SAT 94
[2020-10-16 08:27] VITALS: BP 120/77; PULSE 85; RESP 18; O2SAT 95
[2020-10-16 08:31] VITALS: BP 125/84; PULSE 89; RESP 18; O2SAT 93
[2020-10-16 08:36] VITALS: PULSE 90; RESP 18; O2SAT 94
[2020-10-16 08:47] VITALS: BP 122/82; PULSE 93; RESP 18; O2SAT 94
== END 2020-10-16 09:25 | disposition home or self-care (01) ==
PROVIDERS: PCP Internal Medicine Sports Medicine; Visit Provider Psychiatry & Neurology Psychiatry
PROC: (CPT 90870; principal; 2020-10-16 07:00)
DX: F33.3 Major depressive disorder, recurrent, severe with psychotic symptoms (principal); F43.10 Post-traumatic stress disorder, unspecified; J44.9 Chronic obstructive pulmonary disease, unspecified; F17.210 Nicotine dependence, cigarettes, uncomplicated; F12.90 Cannabis use, unspecified, uncomplicated
CPT/HCPCS: 90870; J0330; J1642; J1885; J2405

== ENCOUNTER 2020-10-23 08:51 | Emergency (ER) | payer OTHER, SELFPAY ==
--- NOTE | ~2020-10-23 | XR_ITS ---
EXAMINATION: XR KNEE, RIGHT CLINICAL INFORMATION: Fall, trauma, pain and swelling. COMPARISON: Radiographs right knee 12/25/2019 TECHNIQUE: 4 views of the right knee are obtained. FINDINGS: There is no fracture or dislocation or destructive process. The suprapatellar bursa is within normal, measuring under 5 mm. No effusion. Hoffa's fat pad appears normal. The articular surfaces appear intact. There is no joint narrowing or erosive change or chondrocalcinosis. XR/XR knee RT 4V IMPRESSION: Normal right knee.
[2020-10-23 09:17] VITALS: BP 110/63; BP 150/90; PULSE 80; PULSE 99; RESP 16; TEMP 36.7; O2SAT 95; O2SAT 99; BMI 48.4
--- NOTE | 2020-10-23 09:52 | ED_ITS ---
HPI - Extremity Injury (Lower) General Chief Complaint: Extremity Injury, Lower Stated Complaint: fall/knee pain Time Seen by Provider: 10/23/20 09:42 Source: patient Mode of arrival: ambulatory Limitations: no limitations History of Present Illness HPI Narrative: 35-year-old female with past medical history of PTSD, GERD, depression, borderline personality disorder, MCL/ACL injury of the right knee here with complaints of right knee pain status post fall. The patient tells me that she tripped and fell this morning landing on the right knee. She believes she may have twisted the right knee during the fall. Denies hitting her head or loss of consciousness. Now having right knee pain which is worsened with weight-bearing. Related Data Previous Rx's Medication Instructions Recorded acetaminophen 650 mg PO Q6H PRN 30 Days #90 tab 08/19/20 albuterol sulfate 2 puff INHALATION Q4-6H PRN 30 08/19/20 Days #8.5 g chlorpromazine 100 mg PO BEDTIME #30 tab 08/19/20 chlorpromazine 100 mg PO Q6H PRN 30 Days #120 tab 08/19/20 cyproheptadine 4 mg PO BEDTIME 30 Days #30 tab 08/19/20 docusate sodium 200 mg PO BID 30 Days #120 cap 08/19/20 duloxetine 60 mg PO DAILY 30 Days #30 cap 08/19/20 fluconazole 100 mg PO DAILY 5 Days #5 tab 08/19/20 gabapentin 600 mg PO TID 30 Days #90 tab 08/19/20 haloperidol 1 tab PO BID PRN #60 tab 08/19/20 haloperidol 2 mg PO TID 30 Days #120 tab 08/19/20 haloperidol 5 mg PO BID PRN 30 Days #60 tab 08/19/20 hydroxyzine pamoate 50 mg PO TID PRN #90 cap 08/19/20 ibuprofen 1 tab PO QID PRN #90 tab 08/19/20 lithium carbonate 600 mg PO BEDTIME #30 tab 08/19/20 lorazepam 1 mg PO BEDTIME 30 Days #30 tab 08/19/20 lorazepam 1 mg PO TID PRN 30 Days #90 tab 08/19/20 mirtazapine [Remeron] 30 mg PO BEDTIME 30 Days #30 tab 08/19/20 naltrexone 50 mg PO DAILY 30 Days #30 tab 08/19/20 nicotine 1 patch TRANSDERMAL DAILY 28 Days 08/19/20 #28 ea olanzapine 10 mg PO BEDTIME 30 Days #30 tab 08/19/20 omeprazole 20 mg PO DAILY@0630 30 Days #30 cap 08/19/20 polyethylene glycol 3350 17 g PO DAILY 30 Days #510 g 08/19/20 prazosin 2 mg PO DAILY@1200 30 Days #60 cap 08/19/20 prazosin 5 mg PO BEDTIME 30 Days #30 cap 08/19/20 propranolol 10 mg PO TID 30 Days #90 tab 08/19/20 trazodone 50 mg PO BEDTIME PRN 30 Days #30 08/19/20 tab Allergies Allergy/AdvReac Type Severity Reaction Status Date / Time carbamazepine [From TEGRETOL] AdvReac Unknown NAUSEA & Verified 09/13/20 20:20 VOMITING topiramate [From TOPAMAX] AdvReac Unknown NAUSEA & Verified 09/13/20 20:20 VOMITING Review of Systems Review of Systems: Yes all other systems are reviewed and are negative Constitutional: Constitutional: Reports no additional constitutional complaints, Denies body ache(s), Denies chills, Denies fever(s), Denies headache(s) and Denies weakness Eyes: Eyes: Reports no additional eye complaints and Denies change in vision ENT: Reports system reviewed and no additional complaints, except as documented, Denies dizziness, Denies headache(s), Denies nasal congestion, Denies nasal discharge and Denies neck pain Cardiovascular: Cardiovascular: Reports no additional cardiovascular complaints, Denies chest pain, Denies leg edema and Denies dyspnea Respiratory: Respiratory: Reports no additional respiratory complaints, Denies cough and Denies dyspnea Gastrointestinal: Gastrointestinal: Reports no additional gastrointestinal complaints, Denies abdominal pain, Denies diarrhea, Denies nausea and Denies vomiting Genitourinary: Genitourinary: Reports no additional female genitourinary complaints and Denies urinary incontinence Musculoskeletal: Musculoskeletal: Reports no additional musculoskeletal complaints, Denies back pain, Reports arthralgias, Reports joint swelling, Reports limited range of motion, Denies neck pain, Denies numbness and Denies tingling Integumentary/Breasts: Skin/Breast: Reports system reviewed and no additional complaints, except as docu and Denies rash Neurologic: Reports system reviewed and no additional complaints, except as documented, Denies Abnormal speech present, Denies dizziness, Denies headach e(s), Denies numbness, Denies tingling and Denies weakness PMFSH Past Medical History Attestation statement: The following information was validated with the patient. Source: old records reviewed and nursing notes reviewed Medical History Adjustment disorder Anxiety Asthma Borderline personality disorder COPD (chronic obstructive pulmonary disease) Depression GERD (gastroesophageal reflux disease) Increased BMI Injury, self-inflicted Intentional self-harm PTSD (post-traumatic stress disorder) Recurrent major depression-severe Schizoaffective disorder Self-harming behavior Suicidal ideation Suicidal ideation Social History Social History Household Members: Other Housing: House Alcohol intake: never Smoking Status: Current every day smoker Tobacco Type: Cigarette Packs Per Day: 0.5 Cigarettes Per Day: 1 Years Smoked: 10 Second Hand Smoke Exposure: No Use of substances other than those prescribed or required for medical reasons: No Substance Use Type: Marijuana Advance Directives: No Advance Directives Information Provided: No service: No Physical Exam Vital Signs: Vital Signs: Last Vital Signs Temp 98.1 F 10/23/20 09:17 Pulse 99 10/23/20 09:17 Resp 16 10/23/20 09:17 BP 110/63 10/23/20 09:17 Pulse Ox 99 10/23/20 09:17 Body Mass Index 48.4 Const: General: cooperative, healthy appearing, comfortable and no acute distress Orientation/consciousness: patient oriented x3 Limitations: no limitations HENMT: Head: Yes normal to inspection Ears: hearing grossly normal bilaterally General nose exam: Normal external nose present Face and sinus: Yes normal facial exam Mouth: Normal oral and palatal mucosa present Throat: Yes posterior oropharynx normal Eyes: General: appearance normal, both eyes and all related structures Pupils: Equal, round and reactive pupils present Neck: Neck: Yes normal visual inspection Chest: Chest palpation & inspection: normal inspection of the chest Resp: Effort & Inspection: normal respiratory effort Auscultation: clear to auscultation bilaterally Cardio: Rate: regular rate Rhythm: regular rhythm Peripheral pulses: Peripheral pulses 2+ throughout GI: Inspection: Yes normal to inspection Palpation (GI): Soft to palpation and nontender Auscultation: normal bowel sounds Back/Spine/Pelvis: Thoracic/Lumbar Spine: thoracic and lumbar spine normal to inspection Skin: General skin exam: no rashes or lesions noted Neuro: General: patient oriented x3, no focal motor deficits and normal sensation to monofilament Cranial nerves: Yes Equal, round and reactive pupils present Cognition (Neuro): normal cognition Speech: No Abnormal speech present Gait exam (Neuro): Normal gait present Motor exam (neuro): 5/5 motor strength present throughout Extrem: Other: Tenderness and swelling to the medial joint line and medial ligament. Patient has pain with flexion of the knee and it is held in extension. Unable to assess ligamental laxity due to pain. Neurovascular intact distally General: Yes normal to inspection Course Course Course Narrative: Injury to right knee status post mechanical fall. Will check imaging and provide analgesia and reassessed. NO SI or HI. 1100- Normal right knee. Likely ligamental sprain. Will place in knee immobil izer and crutches with training. Refer to ortho for f/u. Reviewed worrisome signs and symptoms when to return to the emergency department. Comfortable discharge home. Procedures Procedure Narrative Procedure Narrative: cody wrap, crutches MDM - Extremity Injury (Lower) Medical Records Attestation: I reviewed the patient's medical records. Lab Data Attestation: I reviewed the patient's lab results. Imaging Data knee xray right: Attestation: I personally reviewed and interpreted this imaging study as follows: Radiologist's impression: [address] [id number] ReportSigned Patient: Stella CappsMR#: [id number]: [id number]:[id number]/Sex: 35 / FADM Date: 10/23/20Loc: HO.EDAttending Dr: Ordering Physician: XAVIER BENTLEY NP Date of Service: 10/23/20 Procedure(s): XR knee RT 4V Accession Number(s): [id number] cc: XAVIER BENTLEY NP~ EXAMINATION: XR KNEE, RIGHT CLINICAL INFORMATION: Fall, trauma, pain and swelling. COMPARISON: Radiographs right knee 12/25/2019 TECHNIQUE: 4 views of the right knee are obtained. FINDINGS: There is no fracture or dislocation or destructive process. The suprapatellar bursa is within normal, measuring under 5 mm. No effusion. Hoffa's fat pad appears normal. The articular surfaces appear intact. There is no joint narrowing or erosive change or chondrocalcinosis. XR/XR knee RT 4V IMPRESSION: Normal right knee. Discharge Plan Discharge Clinical Impression: Right knee sprain Qualifiers: Encounter type: initial encounter Involved ligament of knee: medial collateral ligament Qualified Code(s): S83.411A - Sprain of medial collateral ligament of right knee, initial encounter Patient Disposition: Home, Self-Care Instructions: Knee Sprain (ED), Knee Immobilizer (ED) Additional Instructions: She needs to call Orthopedics to schedule follow-up appointment Knee immobilizer during the day with nonweightbearing with crutches Apply ice, elevation of 3 or more pillows Motrin every 6 hours for pain Prescriptions: No Action fluconazole 100 mg Tablet 100 mg PO DAILY 5 Days Qty: 5 RF: 0 cyproheptadine 4 mg Tablet 4 mg PO BEDTIME 30 Days Qty: 30 RF: 0 chlorpromazine 100 mg Tablet 100 mg PO BEDTIME Qty: 30 RF: 0 haloperidol 1 mg Tablet 2 mg PO TID 30 Days Qty: 120 RF: 0 lorazepam 1 mg Tablet 1 mg PO BEDTIME 30 Days Qty: 30 RF: 0 lorazepam 1 mg Tablet 1 mg PO TID PRN (Reason: Anxiety/Restlessness ) 30 Days Qty: 90 RF: 0 mirtazapine [Remeron] 30 mg tablet 30 mg PO BEDTIME 30 Days Qty: 30 RF: 0 trazodone 50 mg Tablet 50 mg PO BEDTIME PRN (Reason: Insomnia) 30 Days Qty: 30 RF: 0 naltrexone 50 mg Tablet 50 mg PO DAILY 30 Days Qty: 30 RF: 0 prazosin 1 mg Capsule 2 mg PO DAILY@1200 30 Days Qty: 60 RF: 0 propranolol 10 mg Tablet 10 mg PO TID 30 Days Qty: 90 RF: 0 chlorpromazine 25 mg Tablet 100 mg PO Q6H PRN (Reason: Agitation) 30 Days Qty: 120 RF: 0 olanzapine 10 mg tablet 10 mg PO BEDTIME 30 Days Qty: 30 RF: 0 gabapentin 600 mg tablet 600 mg PO TID 30 Days Qty: 90 RF: 0 haloperidol 5 mg tablet 1 tab PO BID PRN (Reason: psychosis) Qty: 60 RF: 0 hydroxyzine pamoate 50 mg Capsule 50 mg PO TID PRN (Reason: Anxiety) Qty: 90 RF: 0 lithium carbonate 300 mg Tablet Extended Release 600 mg PO BEDTIME Qty: 30 RF: 0 acetaminophen 500 mg tablet 650 mg PO Q6H PRN (Reason: pain) 30 Days Qty: 90 RF: 0 prazosin 5 mg Capsule 5 mg PO BEDTIME 30 Days Qty: 30 RF: 0 docusate sodium 100 mg Capsule 200 mg PO BID 30 Days Qty: 120 RF: 0 omeprazole 20 mg Capsule,Delayed Release(Dr/Ec) 20 mg PO DAILY@0630 30 Days Qty: 30 RF: 0 ibuprofen 600 mg tablet 1 tab PO QID PRN (Reason: severe pain) Qty: 90 RF: 0 albuterol sulfate 90 mcg/actuation Hfa Aerosol Inhaler 2 puff INHALATION Q4-6H PRN (Reason: Wheezing) 30 Days Qty: 8.5 RF: 1 duloxetine 60 mg Capsule,Delayed Release(Dr/Ec) 60 mg PO DAILY 30 Days Qty: 30 RF: 0 haloperidol 5 mg Tablet 5 mg PO BID PRN (Reason: psychosis) 30 Days Qty: 60 RF: 0 nicotine 21 mg/24 hr patch 24 hour 1 patch transdermal DAILY 28 Days Qty: 28 RF: 0 polyethylene glycol 3350 17 gram/dose powder 17 g PO DAILY 30 Days Qty: 510 RF: 0 Referrals: Ric Reid MD [Physician] - 2 days Interventions: ED Discharge Assessment Last Done: 10/23/20 10:52 Discharge Date/Time: 10/23/20 10:45
[2020-10-23] MEDS: Ibuprofen 600 MG TABLET PO (09:54)
[2020-10-23] MEDS: Acetaminophen 325 MG TABLET 975 MG PO (09:55)
== END 2020-10-23 10:45 | disposition home or self-care (01) ==
PROVIDERS: Emergency Provider Emergency Medicine Emergency Medical Services
DX: S83.411A Sprain of medial collateral ligament of right knee, initial encounter (principal); M25.561 Pain in right knee; F12.90 Cannabis use, unspecified, uncomplicated; W01.0XXA Fall on same level from slipping, tripping and stumbling without subsequent striking against object, initial encounter; Y93.9 Activity, unspecified; Y92.9 Unspecified place or not applicable; Y99.9 Unspecified external cause status; Z79.899 Other long term (current) drug therapy; F17.210 Nicotine dependence, cigarettes, uncomplicated; Z71.6 Tobacco abuse counseling
CPT/HCPCS: 73564; 99283

== ENCOUNTER 2020-10-23 20:52 | Emergency (ER) | payer OTHER, SELFPAY ==
[2020-10-23 22:18] VITALS: BP 133/77; PULSE 103; RESP 20; TEMP 36.8; O2SAT 100; BMI 48.4
--- NOTE | 2020-10-23 23:15 | ED.LOWEXIN ---
HPI - Extremity Injury (Lower) General Chief Complaint: Extremity Injury, Lower Stated Complaint: Right knee pain Time Seen by Provider: 10/23/20 23:03 Source: patient Mode of arrival: EMS History of Present Illness HPI Narrative: This is a 35-year-old female who presents via EMS for the 2nd time today after being evaluated earlier in the day for similar complaints of right knee pain. Patient states that she fell while changing into her pajamas this evening. She denies any head strike or loss of consciousness, denies numbness/tingling in right lower extremity, and denies any further injury. Related Data Previous Rx's Medication Instructions Recorded acetaminophen 650 mg PO Q6H PRN 30 Days #90 tab 08/19/20 albuterol sulfate 2 puff INHALATION Q4-6H PRN 30 08/19/20 Days #8.5 g chlorpromazine 100 mg PO BEDTIME #30 tab 08/19/20 chlorpromazine 100 mg PO Q6H PRN 30 Days #120 tab 08/19/20 cyproheptadine 4 mg PO BEDTIME 30 Days #30 tab 08/19/20 docusate sodium 200 mg PO BID 30 Days #120 cap 08/19/20 duloxetine 60 mg PO DAILY 30 Days #30 cap 08/19/20 fluconazole 100 mg PO DAILY 5 Days #5 tab 08/19/20 gabapentin 600 mg PO TID 30 Days #90 tab 08/19/20 haloperidol 1 tab PO BID PRN #60 tab 08/19/20 haloperidol 2 mg PO TID 30 Days #120 tab 08/19/20 haloperidol 5 mg PO BID PRN 30 Days #60 tab 08/19/20 hydroxyzine pamoate 50 mg PO TID PRN #90 cap 08/19/20 ibuprofen 1 tab PO QID PRN #90 tab 08/19/20 lithium carbonate 600 mg PO BEDTIME #30 tab 08/19/20 lorazepam 1 mg PO BEDTIME 30 Days #30 tab 08/19/20 lorazepam 1 mg PO TID PRN 30 Days #90 tab 08/19/20 mirtazapine [Remeron] 30 mg PO BEDTIME 30 Days #30 tab 08/19/20 naltrexone 50 mg PO DAILY 30 Days #30 tab 08/19/20 nicotine 1 patch TRANSDERMAL DAILY 28 Days 08/19/20 #28 ea olanzapine 10 mg PO BEDTIME 30 Days #30 tab 08/19/20 omeprazole 20 mg PO DAILY@0630 30 Days #30 cap 08/19/20 polyethylene glycol 3350 17 g PO DAILY 30 Days #510 g 08/19/20 prazosin 2 mg PO DAILY@1200 30 Days #60 cap 08/19/20 prazosin 5 mg PO BEDTIME 30 Days #30 cap 08/19/20 propranolol 10 mg PO TID 30 Days #90 tab 08/19/20 trazodone 50 mg PO BEDTIME PRN 30 Days #30 08/19/20 tab Allergies Allergy/AdvReac Type Severity Reaction Status Date / Time carbamazepine [From TEGRETOL] AdvReac Unknown NAUSEA & Verified 09/13/20 20:20 VOMITING topiramate [From TOPAMAX] AdvReac Unknown NAUSEA & Verified 09/13/20 20:20 VOMITING Review of Systems Review of Systems: Pertinent positives and negatives as stated in HPI 10 point review systems is otherwise negative. PMFSH Past Medical History Source: nursing notes reviewed Medical History Adjustment disorder Anxiety Asthma Borderline personality disorder COPD (chronic obstructive pulmonary disease) Depression GERD (gastroesophageal reflux disease) Increased BMI Injury, self-inflicted Intentional self-harm PTSD (post-traumatic stress disorder) Recurrent major depression-severe Schizoaffective disorder Self-harming behavior Suicidal ideation Suicidal ideation Social History Social History Household Members: Other Housing: House Alcohol intake: never Smoking Status: Current every day smoker Tobacco Type: Cigarette Packs Per Day: 0.5 Cigarettes Per Day: 1 Years Smoked: 10 Second Hand Smoke Exposure: No Substance Use Type: Marijuana Advance Directives: No Advance Directives Information Provided: No service: No Physical Exam Vital Signs: Vital Signs: Last Vital Signs Temp 98.2 F 10/23/20 22:18 Pulse 103 H 10/23/20 22:18 Resp 20 10/23/20 22:18 BP 133/77 10/23/20 22:18 Pulse Ox 100 10/23/20 22:18 Body Mass Index 48.4 VITAL SIGNS: Reviewed. GENERAL: Morbidly obese, Well developed, well nourished, in no acute distress. HEAD: Normocephalic/atraumatic, NECK: Supple, no adenopathy LUNGS: Normal breath sounds. CARDIOVASCULAR: Regular rate and rhythm without noted murmurs ABDOMEN: Soft, non-tender, non-distended with bowel sounds. RIGHT LOWER EXTREMITY: There is an Bayron wrap noted to the right knee without evidence of effusion, erythema on re-evaluation, capillary refill less than 3 seconds, mild tenderness to palpation over MCL, otherwise neurovascular is intact SKIN: Inspection of the skin reveals no rashes, ulcerations, jaundice, pallor, or petechiae. NEUROLOGIC: Alert and oriented x 4. Course Course Course Narrative: This is a 35-year-old female with history and clinical presentation consistent with right knee pain and evaluated with imaging earlier in the day without significant injury described during her evening routine. There is no evidence to suggest further imaging is required and patient requested crutches. Unclear whether not patient was provided with crutches earlier, but was given a set this evening on this evaluation and provided with crutch training. Patient did well on observation was discharged in stable condition. Discharge Plan Discharge Clinical Impression: Knee pain, right Qualifiers: Chronicity: unspecified Qualified Code(s): M25.561 - Pain in right knee Patient Disposition: Home, Self-Care Instructions: Crutch Instructions (ED), Knee Pain (ED) Additional Instructions: She needs to call Orthopedics to schedule follow-up appointment Knee immobilizer during the day with nonweightbearing with crutches Apply ice, elevation of 3 or more pillows Motrin every 6 hours for pain Prescriptions: No Action fluconazole 100 mg Tablet 100 mg PO DAILY 5 Days Qty: 5 RF: 0 cyproheptadine 4 mg Tablet 4 mg PO BEDTIME 30 Days Qty: 30 RF: 0 chlorpromazine 100 mg Tablet 100 mg PO BEDTIME Qty: 30 RF: 0 haloperidol 1 mg Tablet 2 mg PO TID 30 Days Qty: 120 RF: 0 lorazepam 1 mg Tablet 1 mg PO BEDTIME 30 Days Qty: 30 RF: 0 lorazepam 1 mg Tablet 1 mg PO TID PRN (Reason: Anxiety/Restlessness ) 30 Days Qty: 90 RF: 0 mirtazapine [Remeron] 30 mg tablet 30 mg PO BEDTIME 30 Days Qty: 30 RF: 0 trazodone 50 mg Tablet 50 mg PO BEDTIME PRN (Reason: Insomnia) 30 Days Qty: 30 RF: 0 naltrexone 50 mg Tablet 50 mg PO DAILY 30 Days Qty: 30 RF: 0 prazosin 1 mg Capsule 2 mg PO DAILY@1200 30 Days Qty: 60 RF: 0 propranolol 10 mg Tablet 10 mg PO TID 30 Days Qty: 90 RF: 0 chlorpromazine 25 mg Tablet 100 mg PO Q6H PRN (Reason: Agitation) 30 Days Qty: 120 RF: 0 olanzapine 10 mg tablet 10 mg PO BEDTIME 30 Days Qty: 30 RF: 0 gabapentin 600 mg tablet 600 mg PO TID 30 Days Qty: 90 RF: 0 haloperidol 5 mg tablet 1 tab PO BID PRN (Reason: psychosis) Qty: 60 RF: 0 hydroxyzine pamoate 50 mg Capsule 50 mg PO TID PRN (Reason: Anxiety) Qty: 90 RF: 0 lithium carbonate 300 mg Tablet Extended Release 600 mg PO BEDTIME Qty: 30 RF: 0 acetaminophen 500 mg tablet 650 mg PO Q6H PRN (Reason: pain) 30 Days Qty: 90 RF: 0 prazosin 5 mg Capsule 5 mg PO BEDTIME 30 Days Qty: 30 RF: 0 docusate sodium 100 mg Capsule 200 mg PO BID 30 Days Qty: 120 RF: 0 omeprazole 20 mg Capsule,Delayed Release(Dr/Ec) 20 mg PO DAILY@0630 30 Days Qty: 30 RF: 0 ibuprofen 600 mg tablet 1 tab PO QID PRN (Reason: severe pain) Qty: 90 RF: 0 albuterol sulfate 90 mcg/actuation Hfa Aerosol Inhaler 2 puff INHALATION Q4-6H PRN (Reason: Wheezing) 30 Days Qty: 8.5 RF: 1 duloxetine 60 mg Capsule,Delayed Release(Dr/Ec) 60 mg PO DAILY 30 Days Qty: 30 RF: 0 haloperidol 5 mg Tablet 5 mg PO BID PRN (Reason: psychosis) 30 Days Qty: 60 RF: 0 nicotine 21 mg/24 hr patch 24 hour 1 patch transdermal DAILY 28 Days Qty: 28 RF: 0 polyethylene glycol 3350 17 gram/dose powder 17 g PO DAILY 30 Days Qty: 510 RF: 0 Referrals: Ric Reid MD [Physician] - 2 days (Evaluation for right knee pain/injury)
--- NOTE | 2020-10-24 00:01 | PC.NURSE ---
APON BRING PT TO ROOM BY W/C PT STATED TO NURSE THAT HER BOYFRIEND WAS ON HIS WAY TO GET HER AND HE IS INPATIENT. PT REQUEST CRUTCHES AND WANTING TO LEAVE JESI. DR SUTHERLAND AWARE AND CAME TO ASSESSES PT. PT WAS D/C WITH CRUTCHES AND ORTHO CONSULT TO F/U. PT BOYFRIEND DID NOT SHOW UP AND PT CALLED FOR [facility].
== END 2020-10-24 00:05 | disposition home or self-care (01) ==
PROVIDERS: Emergency Provider Student in an Organized Health Care Education/Training Program
DX: M25.561 Pain in right knee (principal); F17.210 Nicotine dependence, cigarettes, uncomplicated; F12.90 Cannabis use, unspecified, uncomplicated; Z79.899 Other long term (current) drug therapy; Z71.6 Tobacco abuse counseling
CPT/HCPCS: 99283; 99284

== ENCOUNTER 2020-11-01 07:59 | Day surgery (SDC) | payer OTHER, SELFPAY ==
[2020-11-01 08:20] VITALS: BMI 48.4
--- NOTE | 2020-11-01 08:24 | HO.ANESPROP2 ---
HPI - Anesthesia Eval Consult details Narrative: 35 yo female patient here for ECT PMFSH Active Problems Active Problems: All Active Problems (Updated 10/25/20 @ 00:01 by Adiel Sevilla) Acute post-traumatic stress disorder (Chronic) Increased BMI (Acute) GERD (gastroesophageal reflux disease) (Acute) Recurrent major depression-severe (Acute) Borderline personality disorder (Acute) Past Medical History Medical History Adjustment disorder Anxiety Asthma Borderline personality disorder COPD (chronic obstructive pulmonary disease) Depression GERD (gastroesophageal reflux disease) Increased BMI Injury, self-inflicted Intentional self-harm PTSD (post-traumatic stress disorder) Recurrent major depression-severe Schizoaffective disorder Self-harming behavior Suicidal ideation Suicidal ideation Social History Social History Household Members: Other Housing: House Alcohol intake: unknown Smoking Status: Light tobacco smoker Tobacco Type: Cigarette Packs Per Day: 0.5 Cigarettes Per Day: 1 Years Smoked: 10 Second Hand Smoke Exposure: No Substance Use Type: Marijuana Advance Directives: No Advance Directives Information Provided: Yes Recently lost weight without trying: No service: No Meds Allergies Allergy/AdvReac Type Severity Reaction Status Date / Time carbamazepine [From TEGRETOL] AdvReac Unknown NAUSEA & Verified 09/13/20 20:20 VOMITING topiramate [From TOPAMAX] AdvReac Unknown NAUSEA & Verified 09/13/20 20:20 VOMITING Active Medications: Current Medications Generic Name Dose Route Start Last Admin Trade Name Freq PRN Reason Stop Dose Admin Lactated Ringer's 1,000 mls @ 100 mls/hr 11/01/20 08:30 Lr IVCONT .Q10H SULEIMAN Exam Exam Date and Time: November 01, 2020 0824 Height,Weight and Vital Signs: Vital Signs Temp Pulse Resp BP Pulse Ox 11/01/20 08:26 98.6 F 94 18 139/103 H 99 Airway Mallampati Class: II TM Dist: >3cm Neck ROM: Full Loose/Missing/Broken Teeth: Yes (1Top right back) Heart: RRR Lungs: CTAB Assessment and Plan Assessment Anesthesia Assessment: Anesthesia Plan Discussed and Chart Reviewed Final Anesthetic Review NPO: Yes ASA Class: III Final Preanesthetic Review: No Changes in Pt Med Stat, Meds/Allgs Chart Reviewed, Consent Obtained/Reviewed and Anes Risks/Benef Reviewed Patient Risk: Intermediate Procedure Risk: Intermediate Assessment/Block/Sedation in SS: Assess/Block/Sedation-SS Anesthetic Plan Anesthetic Plan: GA Disposition: Standard PACU
[2020-11-01 08:26] VITALS: BP 139/103; PULSE 94; RESP 18; TEMP 37; O2SAT 99
--- NOTE | 2020-11-01 09:23 | HO.ECTPROC ---
ECT Procedure Note Diagnosis/Treatment Date of Service: 11/03/20 Diagnosis: Major Depressive Disorder Current Treatment Number: Other Treatment: Maintenance Interval Clinical Notes: pt states she has been more stable transition to [facility] homeless periods of severe depression ECT Settings Device: THYMATRON DGx Electrode Placement: Bitemporal Program/Pulse Width: 0.50 Energy Percent: 100 Seizure Duration By EEG (in seconds): 45 Medications Administration General Anesthetic: Etomidate (12 mg) Muscle Relaxant: Succinylcholine (100) Ancillary Medications Analgesics: Torodol - Pre ECT Anti-emetics: Zofran - Pre ECT Miscillaneous Medications: Flumazenil Airway Management Airway Management: Bag Mask Ventilation Treatment Recommendations No Changes Recommended: No change Notes: f/u 4 weeks Pt Tolerated Procedure w/o Issue: Yes
[2020-11-01 09:28] VITALS: BP 151/86; PULSE 98; RESP 15; TEMP 36.9; O2SAT 96
[2020-11-01] MEDS: Lactated Ringers 1,000 ML 100 ML IVCONT (09:32)
[2020-11-01 09:33] VITALS: BP 120/86; PULSE 106; RESP 20; O2SAT 95
[2020-11-01 09:38] VITALS: BP 133/87; PULSE 105; RESP 21; O2SAT 94
[2020-11-01 09:43] VITALS: BP 135/93; PULSE 109; RESP 22; O2SAT 94
[2020-11-01 10:05] VITALS: BP 127/78; PULSE 103; RESP 19; TEMP 36.9; O2SAT 97
== END 2020-11-01 10:56 | disposition home or self-care (01) ==
PROVIDERS: PCP Internal Medicine Sports Medicine; Visit Provider Psychiatry & Neurology Psychiatry
PROC: (CPT 90870; principal; 2020-11-01 09:00)
DX: F33.3 Major depressive disorder, recurrent, severe with psychotic symptoms (principal); F43.10 Post-traumatic stress disorder, unspecified; J44.9 Chronic obstructive pulmonary disease, unspecified; Z88.8 Allergy status to other drugs, medicaments and biological substances
CPT/HCPCS: 90870; J0330; J1642; J1885; J2405

== ENCOUNTER 2020-11-05 19:40 | Emergency (ER) | payer OTHER, SELFPAY ==
[2020-11-05 19:48] VITALS: BP 124/60; PULSE 100; RESP 16; TEMP 36.7; O2SAT 98; BMI 46.9
[2020-11-05] MEDS: LORazepam 1 MG TABLET 2 MG PO (20:37)
[2020-11-05] MEDS: OLANZapine 10 MG TABLET PO (20:37)
[2020-11-05 22:42] LABS: COVID-19 Test Negative (Negative)
--- NOTE | 2020-11-06 02:17 | ED_ITS ---
HPI - Psych General Chief Complaint: Psychiatric Symptoms Stated Complaint: CRISIS Time Seen by Provider: 11/05/20 20:33 Source: patient Mode of arrival: ambulatory Limitations: no limitations History of Present Illness HPI Narrative: Patient presents to ED for suicidal ideation. Patient cause superficial lacerations/abrasions to left forearm. Related Data Home Medications Medication Instructions Recorded Confirmed acetaminophen 500 mg PO Q6H PRN 11/05/20 11/05/20 hydroxyzine pamoate 50 mg PO BID PRN 11/05/20 11/05/20 mirtazapine [Remeron] 15 mg PO BEDTIME 11/05/20 11/05/20 sumatriptan succinate 1 tab PO NEEDED 11/05/20 11/05/20 Previous Rx's Medication Instructions Recorded chlorpromazine 100 mg PO BEDTIME #30 tab 08/19/20 duloxetine 60 mg PO DAILY 30 Days #30 cap 08/19/20 haloperidol 5 mg PO BID PRN 30 Days #60 tab 08/19/20 ibuprofen 1 tab PO QID PRN #90 tab 08/19/20 lithium carbonate 600 mg PO BEDTIME #30 tab 08/19/20 lorazepam 1 mg PO BEDTIME 30 Days #30 tab 08/19/20 lorazepam 1 mg PO TID PRN 30 Days #90 tab 08/19/20 nicotine 1 patch TRANSDERMAL DAILY 28 Days 08/19/20 #28 ea omeprazole 20 mg PO DAILY@0630 30 Days #30 cap 08/19/20 prazosin 5 mg PO BEDTIME 30 Days #30 cap 08/19/20 trazodone 50 mg PO BEDTIME PRN 30 Days #30 08/19/20 tab Allergies Allergy/AdvReac Type Severity Reaction Status Date / Time carbamazepine [From TEGRETOL] AdvReac Unknown NAUSEA & Verified 09/13/20 20:20 VOMITING topiramate [From TOPAMAX] AdvReac Unknown NAUSEA & Verified 09/13/20 20:20 VOMITING Review of Systems Review of Systems: Yes all other systems are reviewed and are negative Constitutional: Constitutional: Reports as per HPI and Reports no additional constitutional complaints Eyes: Eyes: Reports as per HPI and Reports no additional eye complaints ENT: Reports system reviewed and no additional complaints, except as documented and Reports as per HPI Cardiovascular: Cardiovascular: Reports as per HPI and Reports no additional cardiovascular complaints Respiratory: Respiratory: Reports as per HPI and Reports no additional respi ratory complaints Gastrointestinal: Gastrointestinal: Reports as per HPI and Reports no additional gastrointestinal complaints Genitourinary: Genitourinary: Reports no additional female genitourinary complaints and Reports as per HPI Musculoskeletal: Musculoskeletal: Reports no additional musculoskeletal complaints and Reports as per HPI Neurologic: Reports system reviewed and no additional complaints, except as documented and Reports as per HPI Psychiatric: Psychiatric: Reports no additional psychiatric complaints and R eports as per HPI Comments: Suicide [facility] Past Medical History Medical History Adjustment disorder Anxiety Asthma Borderline personality disorder COPD (chronic obstructive pulmonary disease) Depression GERD (gastroesophageal reflux disease) Increased BMI Injury, self-inflicted Intentional self-harm PTSD (post-traumatic stress disorder) Recurrent major depression-severe Schizoaffective disorder Self-harming behavior Suicidal ideation Suicidal ideation Social History Social History Household Members: Other Housing: House Alcohol intake: unknown Smoking Status: Light tobacco smoker Tobacco Type: Cigarette Packs Per Day: 0.5 Cigarettes Per Day: 1 Years Smoked: 10 Second Hand Smoke Exposure: No Substance Use Type: Marijuana Advance Directives: No Advance Directives Information Provided: Yes service: No Physical Exam Vital Signs: Vital Signs: Last Vital Signs Temp 98.0 F 11/05/20 19:48 Pulse 100 11/05/20 19:48 Resp 16 11/05/20 19:48 BP 124/60 11/05/20 19:48 Pulse Ox 98 11/05/20 19:48 Body Mass Index 46.9 Const: General: cooperative, healthy appearing, comfortable, no acute distress, well developed, alert, awake and Physically active Orientation/consciousness: patient oriented x3 HENMT: Head: Yes normal to inspection and Yes No palpable skull fracture present Eyes: General: appearance normal, both eyes and all related structures Neck: Neck: Yes normal visual inspection, Yes full ROM, Yes no lymphadenopathy, Yes no meningeal signs, Yes trachea midline, Yes supple and No tender Chest: Chest palpation & inspection: normal inspection of the chest and normal palpation of entire chest wall Resp: Effort & Inspection: normal respiratory effort and able to speak in complete sentences Auscultation: clear to auscultation bilaterally Cardio: Jugular venous distension: no JVD Heart sounds: S1 normal heart sound present and S2 normal heart sound present GI: Inspection: Yes normal to inspection and No abdominal wall ecchymosis Palpation (GI): Soft to palpation, not firm, nontender, no guarding and not rigid : General: No CVA tenderness and Yes no CVA tenderness Back/Spine/Pelvis: Back: no CVA tenderness, No CVA tenderness and No back tenderness Skin: General skin exam: no rashes or lesions noted and elasticity normal Neuro: General: patient oriented x3, no meningeal signs and CN's II-XI intact bilaterally Cranial nerves: Yes CN's II-XII intact bilaterally Extrem: General: Yes normal to inspection and Yes full ROM Psych: Other: Positive for suicidal ideation Appearance: grossly normal, well kempt and not disheveled Course Course Course Narrative: Patient is on one-to-one. Patient will have COVID swab sent. Patient to be evaluated by [facility]. Reevaluation(s) Reevaluation #1: COVID. The sign-out to Dr. Barcenas MDM - Psych Lab Data Labs: Lab Results 11/05/20 Range/Units 22:23 COVID-19 ([facility]) Negative (Negative) COVID-19 Clin Com See Note Discharge Plan Discharge Clinical Impression: Depression Prescriptions: No Action mirtazapine [Remeron] 30 mg tablet 15 mg PO BEDTIME RF: 0 hydroxyzine pamoate 50 mg capsule 50 mg PO BID PRN (Reason: Anxiety) RF: 0 sumatriptan succinate 50 mg tablet 1 tab PO NEEDED RF: 0 acetaminophen 500 mg tablet 500 mg PO Q6H PRN (Reason: pain) RF: 0 chlorpromazine 100 mg Tablet 100 mg PO BEDTIME Qty: 30 RF: 0 lorazepam 1 mg Tablet 1 mg PO BEDTIME 30 Days Qty: 30 RF: 0 lorazepam 1 mg Tablet 1 mg PO TID PRN (Reason: Anxiety/Restlessness ) 30 Days Qty: 90 RF: 0 trazodone 50 mg Tablet 50 mg PO BEDTIME PRN (Reason: Insomnia) 30 Days Qty: 30 RF: 0 lithium carbonate 300 mg Tablet Extended Release 600 mg PO BEDTIME Qty: 30 RF: 0 prazosin 5 mg Capsule 5 mg PO BEDTIME 30 Days Qty: 30 RF: 0 omeprazole 20 mg Capsule,Delayed Release(Dr/Ec) 20 mg PO DAILY@0630 30 Days Qty: 30 RF: 0 ibuprofen 600 mg tablet 1 tab PO QID PRN (Reason: severe pain) Qty: 90 RF: 0 duloxetine 60 mg Capsule,Delayed Release(Dr/Ec) 60 mg PO DAILY 30 Days Qty: 30 RF: 0 haloperidol 5 mg Tablet 5 mg PO BID PRN (Reason: psychosis) 30 Days Qty: 60 RF: 0 nicotine 21 mg/24 hr patch 24 hour 1 patch transdermal DAILY 28 Days Qty: 28 RF: 0
[2020-11-06] MEDS: Nicotine 21 MG PATCH.TD24 TRANSDERMA (09:08)
[2020-11-06] MEDS: DULoxetine HCl 60 MG CAPSULE.DR PO (09:08)
[2020-11-06] MEDS: Omeprazole 20 MG CAPSULE.DR PO (09:08)
[2020-11-06 09:16] VITALS: BP 106/77; PULSE 80; RESP 16; TEMP 37.1; O2SAT 98
--- NOTE | 2020-11-06 09:54 | PC.NURSE ---
T/W called [facility] to inquire an ETA on their initial eval. I am told they are aware of pt and anticipate to see pt some time after 1pm .
--- NOTE | 2020-11-06 10:34 | PC.NURSE ---
Care team evaluated pt. Awaiting final report and disposition.
== END 2020-11-06 14:40 | disposition home or self-care (01) ==
PROVIDERS: Physician Assistant; Emergency Provider Emergency Medicine
DX: F32.9 Major depressive disorder, single episode, unspecified (principal); R45.851 Suicidal ideations; S50.812A Abrasion of left forearm, initial encounter; X78.9XXA Intentional self-harm by unspecified sharp object, initial encounter; Z20.822 Contact with and (suspected) exposure to COVID-19; F25.9 Schizoaffective disorder, unspecified; F43.10 Post-traumatic stress disorder, unspecified; F41.9 Anxiety disorder, unspecified; F43.20 Adjustment disorder, unspecified; J44.9 Chronic obstructive pulmonary disease, unspecified; Y93.9 Activity, unspecified; Y92.049 Unspecified place in boarding-house as the place of occurrence of the external cause; Y99.9 Unspecified external cause status; Z79.899 Other long term (current) drug therapy; Z91.5 Personal history of self-harm
CPT/HCPCS: 36415; 87635; 99284; 99285

== ENCOUNTER 2020-11-06 08:17 | Outpatient (REF) | payer OTHER, SELFPAY | END 2020-11-06 08:18 | disposition home or self-care (01) | LOC: HO.HOSX 08:17 | PROVIDERS: Visit Provider Physician Assistant | DX: Z13.89 Encounter for screening for other disorder (principal) ==

== ENCOUNTER 2020-11-14 08:17 | Outpatient (REF) | payer OTHER, SELFPAY ==
--- NOTE | ~2020-11-14 | XR_ITS ---
EXAMINATION: XR KNEE, RIGHT CLINICAL INFORMATION: Pain in the knee COMPARISON: 10/23/2020 TECHNIQUE: AP standing view of both knees. [place] view of the right knee. FINDINGS: Right knee: No fracture or subluxation. Compartmental joint spaces are maintained with small tricompartmental marginal osteophytes noted. Cannot evaluate for joint effusion on these views. Left knee: No fracture or subluxation. Medial and lateral compartments are maintained. Small marginal osteophytes. XR/XR knee RT 2V IMPRESSION: Small tricompartmental marginal osteophytes.
== END 2020-11-14 08:18 | disposition home or self-care (01) ==
LOC: HO.HOSX 08:17
PROVIDERS: Visit Provider Physician Assistant
DX: M25.561 Pain in right knee (principal); M25.461 Effusion, right knee
CPT/HCPCS: 73560; 99202

== ENCOUNTER 2020-11-19 10:10 | Outpatient (REF) | payer OTHER, SELFPAY ==
--- NOTE | ~2020-11-19 | MR_ITS ---
EXAMINATION: MR KNEE WITHOUT CONTRAST, RIGHT CLINICAL INFORMATION: Right knee pain COMPARISON: Radiographs 11/14/2020 TECHNIQUE: MRI of the knee without contrast was performed using routine sequences on a high-field scanner. FINDINGS: MENISCI: Medial Meniscus: Intact Lateral Meniscus: Intact LIGAMENTS: Cruciate: The anterior cruciate ligament is diffusely thickened and intermediate in signal compatible with mucoid degeneration. The posterior cruciate ligament is intact. Collateral: Mild edema surrounds the proximal MCL which is slightly thickened suggesting a grade 1 sprain in the setting of trauma. The lateral collateral ligament complex appears intact. EXTENSOR MECHANISM: Intact ARTICULAR CARTILAGE/BONE: Patellofemoral Compartment: Cartilage thinning and surface irregularity with areas of full-thickness loss involving the lateral patellar facet and along the median ridge of the patella. There is cartilage irregularity at the superior aspect of the lateral trochlea. Small marginal osteophytes. The patella is laterally tilted and subluxed. Chondral irregularity and marrow edema at the inferomedial aspect of the patella raises the possibility of a recent lateral patellar dislocation. Medial Compartment: Normal Lateral Compartment: Mild impaction fracture of the lateral femoral condyle at the peripheral weightbearing aspect with prominent bone marrow edema. No displaced chondral defect. JOINT FLUID AND BURSAE: There is a moderate joint effusion. MR/MR knee RT wo con IMPRESSION: Small subchondral impaction fracture of the weightbearing lateral femoral condyle peripherally. No displaced chondral defect. Moderate joint effusion. Probable grade 1 proximal MCL sprain. Chondral irregularity and marrow edema at the inferomedial aspect of the patella which could represent a contusion. This constellation of findings raises the possibility of a recent transient lateral patellar dislocation. No meniscal tear. Moderate patellofemoral compartment osteoarthritis.
== END 2020-11-19 10:11 | disposition home or self-care (01) ==
LOC: HO.MRI 10:10
PROVIDERS: Visit Provider Physician Assistant
DX: S89.91XA Unspecified injury of right lower leg, initial encounter (principal)
CPT/HCPCS: 73721

== ENCOUNTER 2020-11-29 09:10 | Day surgery (SDC) | payer OTHER, SELFPAY ==
[2020-11-29] VITALS (7 sets, daily range): BP systolic 109–147; BP diastolic 72–81; PULSE 96–110; RESP 16–20; TEMP 36.6–37.1; O2SAT 95–99; BMI 53.3
--- NOTE | 2020-11-29 09:53 | MHC.SHP ---
Pre-Procedural Eval Section A The patient is an INPATIENT: No Changes since office visit: No Cold of Flu in the past 2 weeks, No New Medical Problems, No Changes in Medication and No Patient answered all questions The History & Physical has been completed within 30 days and I have reviewed it.: Yes Section B Chief Complaint: depression Details of Present Illness: The patient denies new medical problems, she has quit smoking and she is doing fairly well on her new skilled nursing. She is motivated to continue ECT. Relevant Family History (Specify if Yes): No Relevant Social History: Other (specify) (inhaler CBD) Present Medications: None Medical History: No relevant PMH History of Previous Operations: No relevant previous surgery Allergies: Allergies Allergy/AdvReac Type Severity Reaction Status Date / Time carbamazepine [From TEGRETOL] AdvReac Unknown NAUSEA & Verified 11/14/20 11:53 VOMITING topiramate [From TOPAMAX] AdvReac Unknown NAUSEA & Verified 11/14/20 11:53 VOMITING Review of Systems Sugical H&P ROS: Negative: Constitution, Cardiovascular, Respiratory, Neurological, Psychiatric, Hem-Onc, Allergic/Immunologic, Gastrointestinal, Genitourinary, Musculoskeletal, Integumentary, Endocrine and Eyes/Ears/Nose/Throat Exam Surgical H&P Exam: Normal: HEENT, Normal: Heart, Normal: Lungs, Normal: Extremities, Normal: Abdomen, Normal: Skin and Normal: Neurological Plan Diagnosis/Plan: Unchanged I have reviewed the history and physical and performed a pertinent physical examination on my patient. No changes have occurred unless specified.
--- NOTE | 2020-11-29 10:05 | HO.ANESPROP2 ---
[facility] Active Problems Active Problems: All Active Problems (Updated 11/14/20 @ 12:02 by Tapan Carey PA-C) Injury of ligament of right knee (Acute) Acute post-traumatic stress disorder (Chronic) Increased BMI (Acute) GERD (gastroesophageal reflux disease) (Acute) Recurrent major depression-severe (Acute) Borderline personality disorder (Acute) Past Medical History Medical History Adjustment disorder Anxiety Asthma Borderline personality disorder COPD (chronic obstructive pulmonary disease) Depression GERD (gastroesophageal reflux disease) Increased BMI Injury, self-inflicted Intentional self-harm PTSD (post-traumatic stress disorder) Recurrent major depression-severe Schizoaffective disorder Self-harming behavior Suicidal ideation Suicidal ideation Social History Social History Household Members: Other Housing: House Alcohol intake: unknown Smoking Status: Unknown if ever smoked Tobacco Type: Cigarette Packs Per Day: 0.5 Cigarettes Per Day: 1 Years Smoked: 10 Second Hand Smoke Exposure: No Substance Use Type: Marijuana Advance Directives: No Advance Directives Information Provided: Yes service: No Meds Allergies Allergy/AdvReac Type Severity Reaction Status Date / Time carbamazepine [From TEGRETOL] AdvReac Unknown NAUSEA & Verified 11/14/20 11:53 VOMITING topiramate [From TOPAMAX] AdvReac Unknown NAUSEA & Verified 11/14/20 11:53 VOMITING Home Medications Medication Instructions Recorded Confirmed Last Taken Type acetaminophen 500 mg PO Q6H PRN 11/05/20 11/05/20 Unknown History hydroxyzine pamoate 50 mg PO BID PRN 11/05/20 11/05/20 Unknown History mirtazapine [Remeron] 15 mg PO BEDTIME 11/05/20 11/05/20 11/04/20 22:00 History sumatriptan succinate 1 tab PO NEEDED 11/05/20 11/05/20 Unknown History Exam Exam Date and Time: November 29, 2020 1005 Height,Weight and Vital Signs: Height 4 ft 11 in Weight 119.748 kg Last Vital Signs Temp 97.9 F 11/29/20 09:28 Pulse 106 H 11/29/20 09:28 Resp 20 11/29/20 09:28 BP 138/78 11/29/20 09:28 Pulse Ox 96 11/29/20 09:28 Airway Mallampati Class: II TM Dist: >3cm Neck ROM: Full
--- NOTE | 2020-11-29 10:16 | HO.ECTPROC ---
ECT Procedure Note Diagnosis/Treatment Date of Service: 11/29/20 Diagnosis: Major Depressive Disorder Previous ECT Date: 11/03/20 Treatment: Maintenance Interval Clinical Notes: The patient reported feeling well, she quit smoking and she feels proud. No more self-harming behavior in her new [facility]. Content with the treatment ECT Settings Device: THYMATRON DGx Electrode Placement: Bitemporal Program/Pulse Width: 0.50 Energy Percent: 100 Seizure Duration By EEG (in seconds): 44 Medications Administration General Anesthetic: Etomidate (12) Muscle Relaxant: Succinylcholine (100) Ancillary Medications Analgesics: Torodol - Pre ECT Anti-emetics: Zofran - Pre ECT Miscillaneous Medications: Flumazenil Airway Management Airway Management: Bag Mask Ventilation Treatment Recommendations No Changes Recommended: No change Pt Tolerated Procedure w/o Issue: Yes
== END 2020-11-29 11:36 | disposition home or self-care (01) ==
PROVIDERS: Psychiatry & Neurology Psychiatry; PCP Internal Medicine Sports Medicine; Visit Provider Psychiatry & Neurology Psychiatry
PROC: (CPT 90870; principal; 2020-11-29 11:30)
DX: F33.2 Major depressive disorder, recurrent severe without psychotic features (principal); F43.10 Post-traumatic stress disorder, unspecified; F60.3 Borderline personality disorder; Z91.5 Personal history of self-harm; K21.9 Gastro-esophageal reflux disease without esophagitis; Z87.891 Personal history of nicotine dependence; Z88.8 Allergy status to other drugs, medicaments and biological substances; Z79.899 Other long term (current) drug therapy
CPT/HCPCS: 90870; J0330; J1642; J1885; J2405

== ENCOUNTER 2020-11-29 18:10 | Emergency (ER) | payer OTHER, SELFPAY ==
--- NOTE | ~2020-11-29 | XR_ITS ---
EXAMINATION: XR CHEST CLINICAL INFORMATION: Cough COMPARISON: 09/09/2020 TECHNIQUE: Frontal view of the chest was obtained. FINDINGS: Low lung volumes. Given this there is no acute finding. No obvious failure or infiltrate. No effusion. Catheter overlies the superior vena cava. No pneumothorax. XR/XR chest 1V IMPRESSION: Low lung volumes. No convincing evidence for an acute process
[2020-11-29 18:17] VITALS: BP 135/94; BP 138/85; PULSE 92; PULSE 98; RESP 17; TEMP 36.9; O2SAT 98; BMI 53.3
[2020-11-29 18:33] VITALS: BP 135/94; PULSE 94; RESP 178; TEMP 36.8; O2SAT 99
--- NOTE | 2020-11-29 18:39 | ED_ITS ---
HPI - Psych General Chief Complaint: Psychiatric Symptoms Stated Complaint: crisis, laceration Time Seen by Provider: 11/29/20 18:19 Source: patient and EMS Mode of arrival: EMS Limitations: no limitations History of Present Illness HPI Narrative: 35 yo female well known to this department with a past medical history of PTSD, depression, anxiety, borderline personality disorder here with complaints of feels depressed, seeking to speak to crisis and self injury to left forearm. Patient tells me she had dreams of her sister's and then was listening to depressing music which caused her to cut her left forearm. No HI, hallucinations. Also c/o of headache, cough, malaise, suprapubic discomfort. No urinary symptoms, shortness of breath or chest pain. Received her COVID vaccine. Related Data Home Medications Medication Instructions Recorded Confirmed acetaminophen 500 mg PO Q6H PRN 11/05/20 11/29/20 hydroxyzine pamoate 50 mg PO BID PRN 11/05/20 11/29/20 mirtazapine [Remeron] 15 mg PO BEDTIME 11/05/20 11/29/20 sumatriptan succinate 1 tab PO NEEDED PRN 11/05/20 11/29/20 ibuprofen 1 tab PO TID PRN 11/29/20 11/29/20 omeprazole 20 mg PO DAILY 11/29/20 11/29/20 Previous Rx's Medication Instructions Recorded chlorpromazine 100 mg PO BEDTIME #30 tab 08/19/20 duloxetine 60 mg PO DAILY 30 Days #30 cap 08/19/20 haloperidol 5 mg PO BID PRN 30 Days #60 tab 08/19/20 lithium carbonate 600 mg PO BEDTIME #30 tab 08/19/20 lorazepam 1 mg PO BEDTIME 30 Days #30 tab 08/19/20 lorazepam 1 mg PO TID PRN 30 Days #90 tab 08/19/20 nicotine 1 patch TRANSDERMAL DAILY 28 Days 08/19/20 #28 ea prazosin 5 mg PO BEDTIME 30 Days #30 cap 08/19/20 trazodone 50 mg PO BEDTIME PRN 30 Days #30 08/19/20 tab leg brace #1 ea 11/14/20 Allergies Allergy/AdvReac Type Severity Reaction Status Date / Time carbamazepine [From TEGRETOL] AdvReac Unknown NAUSEA & Verified 11/14/20 11:53 VOMITING topiramate [From TOPAMAX] AdvReac Unknown NAUSEA & Verified 11/14/20 11:53 VOMITING Review of Systems Review of Systems: Yes all other systems are reviewed and are negative Constitutional: Constitutional: Reports no additional constitutional complaints, Denies body ache(s), Denies chills, Denies fever(s), Reports headache(s), Reports malaise and Denies weakness Eyes: Eyes: Reports no additional eye complaints and Denies change in vision ENT: Reports system reviewed and no additional complaints, except as documented, Denies dizziness, Reports headache(s), Denies nasal congestion, Alexey es nasal discharge and Denies neck pain Cardiovascular: Cardiovascular: Reports no additional cardiovascular complaints, Denies chest pain, Denies leg edema and Denies dyspnea Respiratory: Respiratory: Reports no additional respiratory complaints, Reports cough and Denies dyspnea Gastrointestinal: Gastrointestinal: Reports no additional gastrointestinal complaints, Denies abdominal pain, Denies diarrhea, Denies nausea and Denies vomiting Genitourinary: Genitourinary: Reports no additional female genitourinary complaints, Denies hematuria, Denies urinary frequency, Denies difficulty voiding, Denies flank pain, Denies urinary incontinence, Denies urinary hesitancy, Denies urinary urgency and Denies vaginal discharge Comments: +suprapubic discomfort Musculoskeletal: Musculoskeletal: Reports no additional musculoskeletal complaints, Denies back pain, Denies arthralgias, Denies joint swelling, Denies neck pain, Denies numbness and Denies tingling Integumentary/Breasts: Skin/Breast: Reports system reviewed and no additional complaints, except as docu and Denies rash Comments: +laceration Neurologic: Reports system reviewed and no additional complaints, except as documented, Denies Abnormal speech present, Denies dizziness, Reports headache(s), Denies numbness, Denies tingling and Denies weakness Psychiatric: Psychiatric: Reports anxiety, Reports depression, Denies visual hallucinations, Denies hallucinations, Denies homicidal ideation and Denies suicidal ideation [facility] Past Medical History Attestation statement: The following information was validated with the patient. Source: old records reviewed and nursing notes reviewed Medical History Adjustment disorder Anxiety Asthma Borderline personality disorder COPD (chronic obstructive pulmonary disease) Depression GERD (gastroesophageal reflux disease) Increased BMI Injury, self-inflicted Intentional self-harm PTSD (post-traumatic stress disorder) Recurrent major depression-severe Schizoaffective disorder Self-harming behavior Suicidal ideation Suicidal ideation Social History Social History Household Members: Other Housing: House Alcohol intake: unknown Smoking Status: Former smoker Tobacco Type: Cigarette Packs Per Day: 0.5 Cigarettes Per Day: 1 Years Smoked: 10 Second Hand Smoke Exposure: No Use of substances other than those prescribed or required for medical reasons: Yes Substance Use Type: Marijuana Substance Use Frequency: Daily Last Used Substance: Hours (ago) Advance Directives: No Advance Directives Information Provided: Yes service: No Physical Exam Vital Signs: Vital Signs: Last Vital Signs Temp 97.9 F 11/29/20 20:00 Pulse 82 11/29/20 20:00 Resp 17 11/29/20 20:00 BP 136/81 11/29/20 20:00 Pulse Ox 100 11/29/20 20:00 Body Mass Index 53.3 Const: General: cooperative, healthy appearing, comfortable and no acute distress Orientation/consciousness: patient oriented x3 Limitations: no limitations HENMT: Head: Yes normal to inspection Ears: hearing grossly normal bilat erally General nose exam: Normal external nose present Face and sinus: Yes normal facial exam Mouth: Normal oral and palatal mucosa present Throat: Yes posterior oropharynx normal Eyes: General: appearance normal, both eyes and all related structures Pupils: Equal, round and reactive pupils present Neck: Neck: Yes normal visual inspection Chest: Chest palpation & inspection: normal inspection of the chest Resp: Effort & Inspection: normal respiratory effort Auscultation: clear to auscultation bilaterally Cardio: Rate: regular rate Rhythm: regular rhythm Peripheral pulses: Peripheral pulses 2+ throughout GI: Inspection: Yes normal to inspection Palpation (GI): Soft to palpation and nontender Auscultation: normal bowel sounds Back/Spine/Pelvis: Thoracic/Lumbar Spine: thoracic and lumbar spine normal to inspection Skin: General skin exam: no rashes or lesions noted Neuro: General: patient oriented x3, no focal motor deficits and normal s ensation to monofilament Cranial nerves: Yes Equal, round and reactive pupils present Cognition (Neuro): normal cognition Speech: No Abnormal speech present Gait exam (Neuro): Normal gait present Motor exam (neuro): 5/5 motor strength present throughout Extrem: Other: Left volar forearm multiple superficial lacerations noted. One larger laceration noted approximately 4cm in length, 2nd laceration just proximal to this 2cm in length General: Yes normal to inspection Course Course Course Narrative: 35 yo female here with depression, self injury to left forearm and wanting to speak to crisis. Also c.o headache, cough, malaise and suprapubic discomfort. Will need labs, CXR, COVID screen, UA, BHn evaluation. 2129-See wound repair note. tetanus UTD. Labs are unremarkable. urine negative. COVID screen pending (patient fully vaccinated so less likely positive). CXR shows no acute finding. Patient tells me she has had productive cough with yellow sputum and increasing need for her albuterol for 5-6 days. Likely bronchitis. Will start on azithromycin for presumed bacterial bronchitis. At this time patient placed in physician observation pending crisis evaluation. Sign out to night team pending above. Procedures Laceration Laceration 1: Site: upper extremity Side (If applicable): left Size (cm): 4 Description: linear Depth: simple, single layer Local Anesthetic: lidocaine 2% Amount of anesthesia used (mL): 3 Pre-repair: wound explored Skin layer closed with: vicryl Size (cm): 5-0 Number of sutures: 6 Technique: simple, interrupted Laceration 2: Site: upper extremity Side (If applicable): left Size (cm): 2 Description: linear Depth: simple, single layer Local Anesthetic: lidocaine 2% Amount of anesthesia used (mL): 3 Pre-repair: wound explored Skin layer closed with: vicryl Size (cm): 5-0 Number of sutures: 2 MDM - Psych Medical Records Attestation: I reviewed the patient's medical records. Lab Data Attestation: I reviewed the patient's lab results. Result diagrams: 11/29/20 20:02 11/29/20 20:02 Labs: Lab Results 11/29/20 11/29/20 11/29/20 Range/Units 20:02 20:02 20:02 WBC 9.5 (4.8-10.8) X10*3/uL RBC 3.93 L (4.20-5.50) X10*6/uL Hgb 10.1 L (12.0-16.0) g/dl Hct 32.0 L (37-47) % MCV 81.4 (80-98) fL MCH 25.7 L (27.0-33.0) pg MCHC 31.6 (31.0-35.0) g/dl RDW 15.4 (11.0-16.0) % Plt Count 334 (160-400) X10*3/uL MPV 10.1 (9.4-12.3) fL Immature Gran % (Auto) 0.3 (0.0-0.4) % Neut % (Auto) 67.4 (45-73) % Lymph % (Auto) 25.7 (20-40) % [place] % (Auto) 6.6 (2-11) % Eos % (Auto) 0.0 (0-4) % Baso % (Auto) 0.0 (0-2) % Lymph # (Auto) 2.4 (1.2-4.9) X10*3/uL [place] # (Auto) 0.6 (0.1-1.2) X10*3/uL Eos # (Auto) 0.0 (0.0-0.4) X10*3/uL Baso # (Auto) 0.0 (0.0-0.2) X10*3/uL Abs Immat Gran (auto) 0.03 (0.00-0.03) X10*3/uL Absolute Neuts (auto) 6.4 (2.0-8.3) X10*3/uL Absolute Nucleated RBC 0.000 (0.0-0.012) X10*3/uL Nucleated RBC % (auto) 0.0 (0.0-0.2) /100WBC Sodium 138 (135-145) mmol/L Potassium 3.7 (3.3-5.1) mmol/L Chloride 109 H (96-108) mmol/L Carbon Dioxide 19 L (22-29) mmol/L Anion Gap 14 (12-20) BUN 14 (9-16) mg/dL Creatinine 0.74 (0.5-1.4) mg/dL Estim Creat Clear Calc 124.8 Estimated GFR > 60 Random Glucose 89 (60-115) mg/dL Calcium 9.2 (8.4-10.2) mg/dL Magnesium 2.0 (1.6-2.6) mg/dL Urine Color Urine Appearance Urine pH (5.0-8.0) Ur Specific [place] (1.005-1.025) Urine Protein (NEG-TRACE) MG/DL Urine Glucose (UA) (NEG) MG/DL Urine Ketones (NEG) MG/DL Urine Blood (NEG) Urine Nitrite (NEG) Ur Leukocyte Esterase (NEG) Urine Test (NEGATIVE) Urine Opiates Screen (Not Detect) Ur Barbiturates Screen (Not Detect) Ur Phencyclidine Scrn (Not Detect) Ur Amphetamines Screen (Not Detect) U Benzodiazepines Scrn (Not Detect) [place] 0.10 L (0.60-1.20) mmol/L Urine Cocaine Screen (Not Detect) U Marijuana (THC) Screen (Not Detect) Ethyl Alcohol mg/dL COVID-19 (RAFAL) (Negative) COVID-19 Clin Com 11/29/20 11/29/20 11/29/20 Range/Units 20:02 20:33 20:33 WBC (4.8-10.8) X10*3/uL RBC (4.20-5.50) X10*6/uL Hgb (12.0-16.0) g/dl Hct (37-47) % MCV (80-98) fL MCH (27.0-33.0) pg MCHC (31.0-35.0) g/dl RDW (11.0-16.0) % Plt Count (160-400) X10*3/uL MPV (9.4-12.3) fL Immature Gran % (Auto) (0.0-0.4) % Neut % (Auto) (45-73) % Lymph % (Auto) (20-40) % [place] % (Auto) (2-11) % Eos % (Auto) (0-4) % Baso % (Auto) (0-2) % Lymph # (Auto) (1.2-4.9) X10*3/uL [place] # (Auto) (0.1-1.2) X10*3/uL Eos # (Auto) (0.0-0.4) X10*3/uL Baso # (Auto) (0.0-0.2) X10*3/uL Abs Immat Gran (auto) (0.00-0.03) X10*3/uL Absolute Neuts (auto) (2.0-8.3) X10*3/uL Absolute Nucleated RBC (0.0-0.012) X10*3/uL Nucleated RBC % (auto) (0.0-0.2) /100WBC Sodium (135-145) mmol/L Potassium (3.3-5.1) mmol/L Chloride (96-108) mmol/L Carbon Dioxide (22-29) mmol/L Anion Gap (12-20) BUN (9-16) mg/dL Creatinine (0.5-1.4) mg/dL Estim Creat Clear Calc Estimated GFR Random Glucose (60-115) mg/dL Calcium (8.4-10.2) mg/dL Magnesium (1.6-2.6) mg/dL Urine Color YELLOW Urine Appearance CLEAR Urine pH 5.5 (5.0-8.0) Ur Specific [place] >= 1.030 H (1.005-1.025) Urine Protein NEG (NEG-TRACE) MG/DL Urine Glucose (UA) NEG (NEG) MG/DL Urine Ketones NEG (NEG) MG/DL Urine Blood NEG (NEG) Urine Nitrite NEG (NEG) Ur Leukocyte Esterase NEG (NEG) Urine Test (NEGATIVE) Urine Opiates Screen (Not Detect) Ur Barbiturates Screen (Not Detect) Ur Phencyclidine Scrn (Not Detect) Ur Amphetamines Screen (Not Detect) U Benzodiazepines Scrn (Not Detect) [place] (0.60-1.20) mmol/L Urine Cocaine Screen (Not Detect) U Marijuana (THC) Screen (Not Detect) Ethyl Alcohol < 10 mg/dL COVID-19 (RAFAL) Negative (Negative) COVID-19 Clin Com See Note 11/29/20 11/29/20 Range/Units 20:33 20:33 WBC (4.8-10.8) X10*3/uL RBC (4.20-5.50) X10*6/uL Hgb (12.0-16.0) g/dl Hct (37-47) % MCV (80-98) fL MCH (27.0-33.0) pg MCHC (31.0-35.0) g/dl RDW (11.0-16.0) % Plt Count (160-400) X10*3/uL MPV (9.4-12.3) fL Immature Gran % (Auto) (0.0-0.4) % Neut % (Auto) (45-73) % Lymph % (Auto) (20-40) % [place] % (Auto) (2-11) % Eos % (Auto) (0-4) % Baso % (Auto) (0-2) % Lymph # (Auto) (1.2-4.9) X10*3/uL [place] # (Auto) (0.1-1.2) X10*3/uL Eos # (Auto) (0.0-0.4) X10*3/uL Baso # (Auto) (0.0-0.2) X10*3/uL Abs Immat Gran (auto) (0.00-0.03) X10*3/uL Absolute Neuts (auto) (2.0-8.3) X10*3/uL Absolute Nucleated RBC (0.0-0.012) X10*3/uL Nucleated RBC % (auto) (0.0-0.2) /100WBC Sodium (135-145) mmol/L Potassium (3.3-5.1) mmol/L Chloride (96-108) mmol/L Carbon Dioxide (22-29) mmol/L Anion Gap (12-20) BUN (9-16) mg/dL Creatinine (0.5-1.4) mg/dL Estim Creat Clear Calc Estimated GFR Random Glucose (60-115) mg/dL Calcium (8.4-10.2) mg/dL Magnesium (1.6-2.6) mg/dL Urine Color Urine Appearance Urine pH (5.0-8.0) Ur Specific [place] (1.005-1.025) Urine Protein (NEG-TRACE) MG/DL Urine Glucose (UA) (NEG) MG/DL Urine Ketones (NEG) MG/DL Urine Blood (NEG) Urine Nitrite (NEG) Ur Leukocyte Esterase (NEG) Urine Test NEGATIVE (NEGATIVE) Urine Opiates Screen Not Detected (Not Detect) Ur Barbiturates Screen Not Detected (Not Detect) Ur Phencyclidine Scrn Not Detected (Not Detect) Ur Amphetamines Screen Not Detected (Not Detect) U Benzodiazepines Scrn Not Detected (Not Detect) [place] (0.60-1.20) mmol/L Urine Cocaine Screen Not Detected (Not Detect) U Marijuana (THC) Screen POSITIVE H (Not Detect) Ethyl Alcohol mg/dL COVID-19 (RAFAL) (Negative) COVID-19 Clin Com Discharge Plan Discharge Clinical Impression: Borderline personality disorder, Acute post-traumatic stress disorder, Laceration, Bronchitis Prescriptions: No Action mirtazapine [Remeron] 30 mg tablet 15 mg PO BEDTIME RF: 0 hydroxyzine pamoate 50 mg capsule 50 mg PO BID PRN (Reason: Anxiety) RF: 0 sumatriptan succinate 50 mg tablet 1 tab PO NEEDED PRN (Reason: Migraine Headache) RF: 0 acetaminophen 500 mg tablet 500 mg PO Q6H PRN (Reason: pain) RF: 0 omeprazole 20 mg capsule,delayed release(DR/EC) 20 mg PO DAILY RF: 0 ibuprofen 600 mg tablet 1 tab PO TID PRN (Reason: Pain) RF: 0 chlorpromazine 100 mg Tablet 100 mg PO BEDTIME Qty: 30 RF: 0 lorazepam 1 mg Tablet 1 mg PO BEDTIME 30 Days Qty: 30 RF: 0 lorazepam 1 mg Tablet 1 mg PO TID PRN (Reason: Anxiety/Restlessness ) 30 Days Qty: 90 RF: 0 trazodone 50 mg Tablet 50 mg PO BEDTIME PRN (Reason: Insomnia) 30 Days Qty: 30 RF: 0 lithium carbonate 300 mg Tablet Extended Release 600 mg PO BEDTIME Qty: 30 RF: 0 prazosin 5 mg Capsule 5 mg PO BEDTIME 30 Days Qty: 30 RF: 0 duloxetine 60 mg Capsule,Delayed Release(Dr/Ec) 60 mg PO DAILY 30 Days Qty: 30 RF: 0 haloperidol 5 mg Tablet 5 mg PO BID PRN (Reason: psychosis) 30 Days Qty: 60 RF: 0 nicotine 21 mg/24 hr patch 24 hour 1 patch transdermal DAILY 28 Days Qty: 28 RF: 0 (DME) leg brace Misc See Rx Instructions miscellaneous .MEDSUPPLY Qty: 1 RF: 0
[2020-11-29] MEDS: Nicotine 21 MG PATCH.TD24 TRANSDERMA (18:55)
[2020-11-29] MEDS: Lidocaine HCl 2 % MPF 5 ML VIAL SUBCUT (18:55)
--- NOTE | 2020-11-29 19:16 | PC.NURSE ---
LAB WAS CALLED TO DRAW PATIENT PATIENT IS A DIFFICULT STICK .
[2020-11-29 20:00] VITALS: BP 136/81; PULSE 82; RESP 17; TEMP 36.6; O2SAT 100
[2020-11-29 20:10] LABS: MANUAL DIFF FLAG NO
[2020-11-29 20:16] LABS: Hemoglobin 10.1 g/dl (12.0-16.0); Imm Gran Abs Auto 0.03 X10*3/uL (0.00-0.03); Imm Gran Pct Auto 0.3 % (0.0-0.4); Lymphocytes Absolute Auto 2.4 X10*3/uL (1.2-4.9); Lymphocytes Percent Auto 25.7 % (20-40); Mean Corpuscular HGB Conc 31.6 g/dl (31.0-35.0); Mean Corpuscular Hemoglobin 25.7 pg (27.0-33.0); Mean Corpuscular Volume 81.4 fL (80-98); Mean Platelet Volume 10.1 fL (9.4-12.3); Monocytes Absolute Auto 0.6 X10*3/uL (0.1-1.2); Monocytes Percent Auto 6.6 % (2-11); Neutrophils Absolute Auto 6.4 X10*3/uL (2.0-8.3); Neutrophils Percent Auto 67.4 % (45-73); Platelet Count 334 X10*3/uL (160-400); Red Blood Count 3.93 X10*6/uL (4.20-5.50); Red Cell Distribution Width 15.4 % (11.0-16.0); White Blood Count 9.5 X10*3/uL (4.8-10.8)
[2020-11-29 20:42] LABS: Glucose Urine UA NEG (NEG); Leukocyte Esterase Urine NEG (NEG); Nitrite Urine NEG (NEG); PH 5.5 (5.0-8.0); Specific Gravity - Urine >= 1.030 (1.005-1.025); Urine Blood NEG (NEG); Urine Ketones NEG (NEG); Urine Protein NEG (NEG-TRACE)
[2020-11-29 20:44] LABS: Appearance Urine CLEAR; Color Urine YELLOW; Urine Pregnancy NEGATIVE (NEGATIVE)
[2020-11-29 20:45] LABS: Ethanol < 10 mg/dL
[2020-11-29 20:45] LABS: UPreg QC Valid YES
[2020-11-29 20:49] LABS: Anion Gap 14 (12-20); Blood Urea Nitrogen 14 mg/dL (9-16); Calcium 9.2 mg/dL (8.4-10.2); Carbon Dioxide 19 mmol/L (22-29); Chloride 109 mmol/L (96-108); Creatinine Clr Calc Pharmacy 124.8; Estimated Glomerular Filt Rate > 60; Glucose Random 89 mg/dL (60-115); Potassium 3.7 mmol/L (3.3-5.1); Sodium 138 mmol/L (135-145)
[2020-11-29 20:58] LABS: COVID-19 Test Negative (Negative)
[2020-11-29 21:21] LABS: Amphetamine Screen Urine Not Detected (Not Detect); Barbiturates, Urine Not Detected (Not Detect); Benzodiazepines Screen Urine Not Detected (Not Detect); Cannabinoid Screen Urine POSITIVE (Not Detect); Cocaine Screen Urine Not Detected (Not Detect); Opiate Screen Urine Not Detected (Not Detect); Phencyclidine Screen Urine Not Detected (Not Detect)
[2020-11-29] MEDS: Azithromycin 500 MG TABLET PO (21:40)
[2020-11-29 21:43] VITALS: BP 105/67; PULSE 81; RESP 18; O2SAT 97
[2020-11-29 22:00] VITALS: BP 105/67; PULSE 79; RESP 16; TEMP 36.6; O2SAT 99
[2020-11-29 22:43] VITALS: BP 102/57; PULSE 90
[2020-11-29] MEDS: Lithium Carbonate ER 300 MG TABLET.ER 600 MG PO (22:43)
[2020-11-29] MEDS: Prazosin HCL 5 MG CAPSULE PO (22:43)
[2020-11-29] MEDS: LORazepam 1 MG TABLET PO (22:46)
[2020-11-29] MEDS: chlorproMAZINE HCl 100 MG TABLET PO (22:46)
[2020-11-29] MEDS: Mirtazapine 7.5 MG TABLET 15 MG PO (22:46)
--- NOTE | 2020-11-30 05:09 | PC.NURSE ---
[facility] faxed and called.
--- NOTE | 2020-11-30 07:13 | PC.NURSE ---
Report received. PT currently sleeping, respirations even and unlabored, in no apparent distress. PT waiting to be seen by MARYLUN, pt on 1:1 for safety.
[2020-11-30] MEDS: Nicotine 21 MG PATCH.TD24 TRANSDERMA (08:37)
[2020-11-30] MEDS: Omeprazole 20 MG CAPSULE.DR PO (08:37)
[2020-11-30] MEDS: Azithromycin 250 MG TABLET PO (08:37)
[2020-11-30] MEDS: DULoxetine HCl 60 MG CAPSULE.DR PO (08:37)
[2020-11-30 09:07] VITALS: BP 116/64; PULSE 89; RESP 16; TEMP 37.1; O2SAT 95
--- NOTE | 2020-11-30 11:36 | PC.NURSE ---
BHN at bedside for eval
== END 2020-11-30 12:31 | disposition home or self-care (01) ==
PROVIDERS: Nurse Practitioner Family; Emergency Provider Internal Medicine; PCP Internal Medicine Sports Medicine
DX: F60.3 Borderline personality disorder (principal); F43.10 Post-traumatic stress disorder, unspecified; J40 Bronchitis, not specified as acute or chronic; S51.812A Laceration without foreign body of left forearm, initial encounter; X78.9XXA Intentional self-harm by unspecified sharp object, initial encounter; Z20.822 Contact with and (suspected) exposure to COVID-19; F32.9 Major depressive disorder, single episode, unspecified; F41.9 Anxiety disorder, unspecified; F12.90 Cannabis use, unspecified, uncomplicated; Z91.5 Personal history of self-harm; Z79.899 Other long term (current) drug therapy; Z87.891 Personal history of nicotine dependence; Y93.89 Activity, other specified; Y92.032 Bedroom in apartment as the place of occurrence of the external cause; Y99.9 Unspecified external cause status
CPT/HCPCS: 12002; 36415; 71045; 80048; 80178; 80307; 80320; 81003; 81025; 83735; 85025; 87635; 99285

== ENCOUNTER 2020-12-06 20:12 | Emergency (ER) | payer OTHER, SELFPAY ==
[2020-12-06 20:18] VITALS: BP 102/61; PULSE 78; RESP 18; TEMP 36.7; O2SAT 97; BMI 51.2
[2020-12-06] MEDS: LORazepam 1 MG TABLET 2 MG PO (20:55)
--- NOTE | 2020-12-06 21:47 | ED_ITS ---
HPI - Psych General Chief Complaint: Psychiatric Symptoms Stated Complaint: crisis Time Seen by Provider: 12/06/20 20:49 Source: patient Mode of arrival: EMS History of Present Illness HPI Narrative: 35-year-old female with extensive psychiatric history who presents via EMS with complaints of auditory and visual hallucinations, but denies any fevers, chills, but endorses that she has some urinary pain/burning. She says that she has been consistently taking her medications and denies any homicidal ideation and describes that she in general has not been feeling open ?very good today?. Related Data Home Medications Medication Instructions Recorded Confirmed acetaminophen 500 mg PO Q6H PRN 11/05/20 11/29/20 hydroxyzine pamoate 50 mg PO BID PRN 11/05/20 11/29/20 mirtazapine [Remeron] 15 mg PO BEDTIME 11/05/20 11/29/20 sumatriptan succinate 1 tab PO NEEDED PRN 11/05/20 11/29/20 ibuprofen 1 tab PO TID PRN 11/29/20 11/29/20 omeprazole 20 mg PO DAILY 11/29/20 11/29/20 Previous Rx's Medication Instructions Recorded chlorpromazine 100 mg PO BEDTIME #30 tab 08/19/20 duloxetine 60 mg PO DAILY 30 Days #30 cap 08/19/20 haloperidol 5 mg PO BID PRN 30 Days #60 tab 08/19/20 lithium carbonate 600 mg PO BEDTIME #30 tab 08/19/20 lorazepam 1 mg PO BEDTIME 30 Days #30 tab 08/19/20 lorazepam 1 mg PO TID PRN 30 Days #90 tab 08/19/20 nicotine 1 patch TRANSDERMAL DAILY 28 Days 08/19/20 #28 ea prazosin 5 mg PO BEDTIME 30 Days #30 cap 08/19/20 trazodone 50 mg PO BEDTIME PRN 30 Days #30 08/19/20 tab leg brace #1 ea 11/14/20 azithromycin See Rx Instructions .ROUTE 12/02/20 .COMPLEX #6 tab Allergies Allergy/AdvReac Type Severity Reaction Status Date / Time carbamazepine [From TEGRETOL] AdvReac Unknown NAUSEA & Verified 11/14/20 11:53 VOMITING topiramate [From TOPAMAX] AdvReac Unknown NAUSEA & Verified 11/14/20 11:53 VOMITING Review of Systems Review of Systems: Pertinent positives and negatives as stated in HPI 10 point review of systems is otherwise negative. [facility] Past Medical History Source: nursing notes reviewed Medical History Adjustment disorder Anxiety Asthma Borderline personality disorder COPD (chronic obstructive pulmonary disease) Depression GERD (gastroesophageal reflux disease) Increased BMI Injury, self-inflicted Intentional self-harm PTSD (post-traumatic stress disorder) Recurrent major depression-severe Schizoaffective disorder Self-harming behavior Suicidal ideation Suicidal ideation Social History Social History Household Members: Other Housing: House Alcohol intake: unknown Smoking Status: Former smoker Tobacco Type: Cigarette Packs Per Day: 0.5 Cigarettes Per Day: 1 Years Smoked: 10 Smoked in Last 30 Days: No Second Hand Smoke Exposure: No Substance Use Type: Marijuana Advance Directives: No Advance Directives Information Provided: No service: No Physical Exam Vital Signs: Vital Signs: Last Vital Signs Temp 97.9 F 12/07/20 01:23 Pulse 90 12/07/20 01:23 Resp 16 12/07/20 05:36 BP 114/76 12/07/20 01:23 Pulse Ox 99 12/07/20 01:23 Body Mass Index 51.2 VITAL SIGNS: Reviewed. GENERAL: Well developed, well nourished, in no acute distress. HEAD: Normocephalic/atraumatic EYES: PERRLA, EOMI NOSE: Nares patent bilateral OROPHARYNX: no oral lesions noted, posterior pharynx clear NECK: Supple, no adenopathy LUNGS: Normal breath sounds. No adventitious sounds or accessory muscle use. SpO2<97> CARDIOVASCULAR: Regular rate and rhythm without noted murmurs ABDOMEN: Soft, non-tender, non-distended with bowel sounds. NEUROLOGIC: Alert and oriented x 4. PSYCH: Depressed affect Course Course Course Narrative: 35-year-old female with history and clinical presentation consistent with auditory/visual hallucinations and currently denying suicidal/homicidal ideation. On review of all investigations patient is otherwise medically cleared for further evaluation by the crisis team. Reevaluation(s) Reevaluation #1: Patient placed in physician observation because the patient nee ded more time BHN evaluation. At the time observation was started the patient's vital signs were stable, patient is alert and oriented, neuro: Nonfocal, CV RRR, lungs clear Time: 23:30 MDM - Psych Lab Data Labs: Lab Results 12/07/20 12/07/20 12/07/20 Range/Units 01:30 01:30 01:30 Urine Color STRAW Urine Appearance CLEAR Urine pH 7.5 (5.0-8.0) Ur Specific [place] 1.010 (1.005-1.025) Urine Protein NEG (NEG-TRACE) MG/DL Urine Glucose (UA) NEG (NEG) MG/DL Urine Ketones NEG (NEG) MG/DL Urine Blood 1+ H (NEG) Urine Nitrite NEG (NEG) Ur Leukocyte Esterase NEG (NEG) Urine RBC 0-2 (0) /HPF Urine WBC 0-2 (0-4) /HPF Ur Squamous Epith Cells TRACE /LPF Urine Bacteria NONE /LPF Urine Mucus TRACE /LPF Urine Test NEGATIVE (NEGATIVE) Urine Opiates Screen Not Detected (Not Detect) Ur Barbiturates Screen Not Detected (Not Detect) Ur Phencyclidine Scrn Not Detected (Not Detect) Ur Amphetamines Screen Not Detected (Not Detect) U Benzodiazepines Scrn Not Detected (Not Detect) Urine Cocaine Screen Not Detected (Not Detect) U Marijuana (THC) Screen POSITIVE H (Not Detect) Discharge Plan Discharge Prescriptions: No Action mirtazapine [Remeron] 30 mg tablet 15 mg PO BEDTIME RF: 0 hydroxyzine pamoate 50 mg capsule 50 mg PO BID PRN (Reason: Anxiety) RF: 0 sumatriptan succinate 50 mg tablet 1 tab PO NEEDED PRN (Reason: Migraine Headache) RF: 0 acetaminophen 500 mg tablet 500 mg PO Q6H PRN (Reason: pain) RF: 0 omeprazole 20 mg capsule,delayed release(DR/EC) 20 mg PO DAILY RF: 0 ibuprofen 600 mg tablet 1 tab PO TID PRN (Reason: Pain) RF: 0 azithromycin 500 mg tablet See Rx Instructions .ROUTE .COMPLEX Qty: 6 RF: 0 chlorpromazine 100 mg Tablet 100 mg PO BEDTIME Qty: 30 RF: 0 lorazepam 1 mg Tablet 1 mg PO BEDTIME 30 Days Qty: 30 RF: 0 lorazepam 1 mg Tablet 1 mg PO TID PRN (Reason: Anxiety/Restlessness ) 30 Days Qty: 90 RF: 0 trazodone 50 mg Tablet 50 mg PO BEDTIME PRN (Reason: Insomnia) 30 Days Qty: 30 RF: 0 lithium carbonate 300 mg Tablet Extended Release 600 mg PO BEDTIME Qty: 30 RF: 0 prazosin 5 mg Capsule 5 mg PO BEDTIME 30 Days Qty: 30 RF: 0 duloxetine 60 mg Capsule,Delayed Release(Dr/Ec) 60 mg PO DAILY 30 Days Qty: 30 RF: 0 haloperidol 5 mg Tablet 5 mg PO BID PRN (Reason: psychosis) 30 Days Qty: 60 RF: 0 nicotine 21 mg/24 hr patch 24 hour 1 patch transdermal DAILY 28 Days Qty: 28 RF: 0 (DME) leg brace Misc See Rx Instructions miscellaneous .MEDSUPPLY Qty: 1 RF: 0
[2020-12-07 01:23] VITALS: BP 114/76; PULSE 90; RESP 16; TEMP 36.6; O2SAT 99
[2020-12-07 01:38] LABS: Glucose Urine UA NEG (NEG); Leukocyte Esterase Urine NEG (NEG); Nitrite Urine NEG (NEG); PH 7.5 (5.0-8.0); Urine Blood 1+ (NEG); Urine Ketones NEG (NEG); Urine Protein NEG (NEG-TRACE)
[2020-12-07 01:44] LABS: Appearance Urine CLEAR; Color Urine STRAW
[2020-12-07 01:51] LABS: UPreg QC Valid YES; Urine Pregnancy NEGATIVE (NEGATIVE)
[2020-12-07 01:54] LABS: Amphetamine Screen Urine Not Detected (Not Detect); Barbiturates, Urine Not Detected (Not Detect); Benzodiazepines Screen Urine Not Detected (Not Detect); Cannabinoid Screen Urine POSITIVE (Not Detect); Cocaine Screen Urine Not Detected (Not Detect); Opiate Screen Urine Not Detected (Not Detect); Phencyclidine Screen Urine Not Detected (Not Detect)
[2020-12-07 02:37] LABS: Mucus Urine TRACE /LPF; RBC Urine 0-2 /HPF (0); Squamous Epithelial Cell Urine TRACE /LPF; WBC Urine 0-2 /HPF (0-4)
[2020-12-07 05:36] VITALS: RESP 16
[2020-12-07 09:00] VITALS: BP 103/55; PULSE 80; RESP 16; TEMP 36.5; O2SAT 96
--- NOTE | 2020-12-07 09:19 | PC.NURSE ---
Awaiting consult from [facility]. Pt calm and cooperative and resting with eyes closed. Staff member at bedside for observation. Pt refused breakfast thist morning.
[2020-12-07 12:00] VITALS: RESP 16
--- NOTE | 2020-12-07 13:29 | PC.NURSE ---
Crisis team here to see pt at this time.
[2020-12-07 13:44] VITALS: BP 117/71; PULSE 84; RESP 16; O2SAT 98
== END 2020-12-07 15:07 | disposition home or self-care (01) ==
PROVIDERS: Emergency Provider Student in an Organized Health Care Education/Training Program
DX: R44.0 Auditory hallucinations (principal); R44.1 Visual hallucinations; F32.9 Major depressive disorder, single episode, unspecified; F60.3 Borderline personality disorder; F43.10 Post-traumatic stress disorder, unspecified; F41.9 Anxiety disorder, unspecified; J44.9 Chronic obstructive pulmonary disease, unspecified; K21.9 Gastro-esophageal reflux disease without esophagitis; F17.210 Nicotine dependence, cigarettes, uncomplicated; F12.90 Cannabis use, unspecified, uncomplicated; Z91.5 Personal history of self-harm; Z79.899 Other long term (current) drug therapy
CPT/HCPCS: 80307; 81001; 81025; 99285

== ENCOUNTER 2020-12-09 22:29 | Emergency (ER) | payer OTHER, SELFPAY ==
[2020-12-09 23:18] VITALS: BP 105/57; BP 138/82; PULSE 101; PULSE 128; RESP 18; TEMP 37.2; O2SAT 97; O2SAT 98; BMI 43.2
[2020-12-09 23:44] VITALS: BP 105/57; PULSE 101; RESP 18; TEMP 37.2; O2SAT 97
[2020-12-10] MEDS: Lidocaine HCl 2 % MPF 5 ML VIAL SUBCUT (00:01)
[2020-12-10 00:24] VITALS: BP 105/57; PULSE 101; RESP 18; TEMP 37.2; O2SAT 97
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
--- NOTE | 2020-12-10 00:53 | PC.NURSE ---
[facility] faxed and called. Jazlyn rep stated someone would be here soon for an evaluation.
--- NOTE | 2020-12-10 02:30 | PC.NURSE ---
BHN at bed side.
--- NOTE | 2020-12-10 03:36 | PC.NURSE ---
This nurse attempted to call [facility] to complete PT med rec. [facility] is currently closed and opens at 09:00.
--- NOTE | 2020-12-10 07:07 | PC.NURSE ---
Report received. PT currently sleeping, respirations even and unlabored, in no apparent distress. PT is 1:1 for safety. PT is inpatient bedsearch.
--- NOTE | 2020-12-10 07:40 | PC.NURSE ---
Pt reports that she used a dirty razor to cut her arms yesterday, states it was someone else's razor. PT states she doesn't care and just wants to . PT with flat affect, continues to endorse SI, hopeless and helpless.
[2020-12-10] MEDS: LORazepam 1 MG TABLET PO ×3 (08:04→20:01)
[2020-12-10] MEDS: chlorproMAZINE HCl 25 MG TABLET PO (08:04)
[2020-12-10] MEDS: LORazepam 2 MG/ML VIAL IM (10:52)
[2020-12-10] MEDS: Haloperidol Lactate 5 MG/ML VIAL IM (10:52)
--- NOTE | 2020-12-10 10:53 | PC.NURSE ---
Pt hitting herself in the head, pulling out her hair and attempting to hit her head on the wall and bedframe. PT unable to be redirected verbally. PT continued to attempt to harm herself, staff held her arms to prevent her from harming herself. PT keeps repeating that she wants to hurt herself and will kill herself today. Pt agreeably to IM medication, provider notified, medication ordered and administered per EMAR. Verbal reassurance and redirection continues to be provided. PT continues on 1:1 observation for safety.
[2020-12-10] MEDS: Diphth,Pertus(ACell),Tet Adult 0.5 ML SYRINGE IM (18:07)
--- NOTE | 2020-12-10 18:51 | PC.NURSE ---
PT saying she wants to , hitting herself in the head, pt attempted to hit her head against the bed frame and wall. Pt redirected verbally and physically. PT continues on 1:1 for safety
[2020-12-10 19:01] LABS: MANUAL DIFF FLAG NO
[2020-12-10 19:04] LABS: Hematocrit 32.3 % (37-47); Imm Gran Abs Auto 0.01 X10*3/uL (0.00-0.03); Imm Gran Pct Auto 0.2 % (0.0-0.4); Lymphocytes Absolute Auto 2.6 X10*3/uL (1.2-4.9); Mean Corpuscular Hemoglobin 25.8 pg (27.0-33.0); Mean Corpuscular Volume 83.2 fL (80-98); Mean Platelet Volume 10.2 fL (9.4-12.3); Monocytes Absolute Auto 0.6 X10*3/uL (0.1-1.2); Monocytes Percent Auto 8.8 % (2-11); Neutrophils Absolute Auto 3.1 X10*3/uL (2.0-8.3); Platelet Count 322 X10*3/uL (160-400); Red Blood Count 3.88 X10*6/uL (4.20-5.50); Red Cell Distribution Width 15.8 % (11.0-16.0); White Blood Count 6.3 X10*3/uL (4.8-10.8)
[2020-12-10] MEDS: HaloperidoL 5 MG TABLET PO (19:08)
--- NOTE | 2020-12-10 19:09 | PC.NURSE ---
Report received. PT has been suffering from thoughts of suicide throughout the day. PT is being held by two MHAs at this time to prevent her from self harming. PT has been trying to pull her hair out in clumps, punch herself in the head and face, and bang her head against the shepherd. PT agreed to take PO PRN meds to decrease anxiety and thoughts of suicide.
[2020-12-10 19:16] LABS: COVID-19 Test Negative (Negative)
[2020-12-10 19:18] LABS: Lithium 0.35 mmol/L (0.60-1.20)
[2020-12-10 19:25] LABS: Alanine Aminotransferase 8 U/L (0-31); Albumin Level 3.7 g/dL (3.5-5.0); Alkaline Phosphatase 61 U/L (39-117); Anion Gap 11 (12-20); Aspartate Amino Transferase 14 U/L (5-31); Bilirubin Total 0.3 mg/dL (0.0-1.0); Blood Urea Nitrogen 12 mg/dL (9-16); Calcium 8.8 mg/dL (8.4-10.2); Carbon Dioxide 21 mmol/L (22-29); Chloride 113 mmol/L (96-108); Creatinine Clr Calc Pharmacy 130.5; Estimated Glomerular Filt Rate > 60; Glucose Random 89 mg/dL (60-115); Sodium 141 mmol/L (135-145)
[2020-12-10] MEDS: OLANZapine 10 MG TABLET PO (19:53)
[2020-12-10 20:01] VITALS: BP 109/72; PULSE 80
[2020-12-10] MEDS: Topiramate 25 MG TABLET PO (20:01)
[2020-12-10] MEDS: Mirtazapine 15 MG TABLET PO (20:01)
[2020-12-10] MEDS: chlorproMAZINE HCl 100 MG TABLET PO (20:01)
[2020-12-10] MEDS: Prazosin HCL 5 MG CAPSULE PO (20:01)
[2020-12-10] MEDS: Lithium Carbonate ER 300 MG TABLET.ER 600 MG PO (20:01)
[2020-12-11 05:00] VITALS: BP 122/75; PULSE 82; RESP 18; TEMP 36.1; O2SAT 97
--- NOTE | 2020-12-11 06:53 | PC.NURSE ---
Report received. PT currently sleeping, respirations even and unlabored, in no apparent distress. Pt is on 1:1 for safety. PT is inpatient bedsearch.
[2020-12-11 08:10] LABS: HBc Num1 0.03 S/CO (0.00-0.79); HIV AB/AG Nonreactive (Nonreactive); HIV Num 1 0.06 S/CO (0.00-0.99); Hepatitis B Core Antibody Nonreactive (Nonreactive)
[2020-12-11 08:32] LABS: HBsAGNum1 0.18 S/CO (0.00-0.99); Hepatitis B Surface Antigen Negative (Negative); ~HepC Num1 0.06 S/CO (0.00-0.79); ~Hepatitis C Antibody Nonreactive (Nonreactive)
[2020-12-11] MEDS: DULoxetine HCl 60 MG CAPSULE.DR PO (09:26)
[2020-12-11] MEDS: Omeprazole 20 MG CAPSULE.DR PO (09:26)
[2020-12-11] MEDS: Loratadine 10 MG TABLET PO (09:26)
[2020-12-11] MEDS: HaloperidoL 5 MG TABLET PO ×2 (11:29→16:17)
--- NOTE | 2020-12-11 11:32 | PC.NURSE ---
PT noted to be hitting her head, redirected, pt agreeing to take PRN medication, medicated per EMAR. PT irritable, states she just wants to . BHN at bedside for MSU
[2020-12-11] MEDS: Haloperidol Lactate 5 MG/ML VIAL IM (12:50)
[2020-12-11] MEDS: LORazepam 2 MG/ML VIAL IM (12:50)
--- NOTE | 2020-12-11 12:52 | PC.NURSE ---
PT started punching herself in the head and attempting to hit her head on the bed frame. Pt verbally and physically redirected. PT continued to attempt to harm herself, offered PRN medication, pt unwilling to take PO medication at this time, states she will take IM medication. PT medicated per EMAR.
[2020-12-11 13:19] VITALS: BP 106/63; PULSE 86; RESP 18; TEMP 36.8; O2SAT 99
[2020-12-11] MEDS: LORazepam 1 MG TABLET PO ×2 (16:17→21:35)
--- NOTE | 2020-12-11 17:11 | PC.NURSE ---
Pt attempting to remove sutures. Attempting to punch self in the face, hit head on the wall. Other RN and MHT sitting with pt in attempt to keep pt from removing sutures. Offered and accepting of PRN haldol and ativan as order (see MAR). JUANITO Altamirano in to remove sutures, band aides applied to lacerations. Pt continues to bang head and punch self, requiring 2:1 assistance to remain safe.
--- NOTE | 2020-12-11 17:20 | PC.NURSE ---
Pt attempting to remove wallace. Attempting to punch self in the face, hit head on the wall. Other RN and MHT sitting with pt in attempt to keep pt from removing wallace. Offered and accepting of PRN haldol and ativan as order (see MAR). JUANITO Altamirano in to remove wallace, band aides applied to lacerations. Pt continues to bang head and punch self, requiring 2:1 assistance to remain safe.
--- NOTE | 2020-12-11 17:36 | PC.NURSE ---
PT continues to attempt to punch herself in the head, pull her hair and hit her head on the wall, light physical redirection effective at this time. PT continues to repeat that she wants to and is going to kill herself tonight, unwilling to disclose her plan, verbally redirected. PT continues on 1:1 observation for safety.
[2020-12-11 21:14] VITALS: BP 109/61; PULSE 80; RESP 18; TEMP 36.1; O2SAT 96
[2020-12-11] MEDS: Lithium Carbonate ER 300 MG TABLET.ER 600 MG PO (21:34)
[2020-12-11] MEDS: Fluticasone Propionate 100 MCG BLST.W.DEV 2 PUFF INHALE (21:34)
[2020-12-11 21:35] VITALS: BP 109/61; PULSE 80
[2020-12-11] MEDS: Mirtazapine 15 MG TABLET PO (21:35)
[2020-12-11] MEDS: Prazosin HCL 5 MG CAPSULE PO (21:35)
[2020-12-11] MEDS: chlorproMAZINE HCl 100 MG TABLET PO (21:35)
[2020-12-11] MEDS: Topiramate 25 MG TABLET PO (21:40)
--- NOTE | 2020-12-11 21:49 | PC.NURSE ---
This RN to medicate patient per OCT, notes allergy to topiramate listed despite topiramate as scheduled med. This RN spoke with longterm staff member Joann who states topiramate is not a true allergy. Joann states it's a sensitivity due to an OD of it in the past. Joann informs this RN that pt has been taking topiramate at longterm since 11/06/20 without any allergic reaction. This RN confirms this with pt. This RN spoke with SINAN Dillard and made aware. This RN to remove topiramate from listed allergies.
[2020-12-11] MEDS: traZODone HCL 50 MG TABLET PO (22:37)
[2020-12-11] MEDS: hydrOXYzine HCL 50 MG TABLET PO (22:37)
--- NOTE | 2020-12-11 23:02 | PC.NURSE ---
Patient had self harming episode where patient was found hitting her head to the wall, trying to pull her hair, hitting her face, staff immediately intervened, provide comfort and deescalated the situation PRN Trazodone and Hydroxyzine offered/accepted, pending effect, patient is being watched on 1:1, will continue to monitor.
[2020-12-12] MEDS: LORazepam 1 MG TABLET PO ×2 (00:20→09:09)
[2020-12-12 02:16] VITALS: BP 104/59; PULSE 88; RESP 20; TEMP 36.4; O2SAT 96
[2020-12-12] MEDS: Omeprazole 20 MG CAPSULE.DR PO (09:08)
[2020-12-12] MEDS: Nicotine 14 MG PATCH.TD24 TRANSDERMA (09:09)
[2020-12-12] MEDS: Loratadine 10 MG TABLET PO (09:09)
[2020-12-12] MEDS: Topiramate 25 MG TABLET PO ×2 (09:09→19:59)
[2020-12-12] MEDS: HaloperidoL 5 MG TABLET PO ×2 (09:09→19:56)
--- NOTE | 2020-12-12 10:43 | PC.NURSE ---
pt denies si now, wants bhn re eval and to be dischaarged, understands the process and looking forward to speaking w kwadwo when the do an update w her later today, pt was medicated earlier asd there was a lot of noise in the ed from another pt
--- NOTE | 2020-12-12 15:50 | PC.NURSE ---
Report received. Pt reports she is feeling better, feels safe, and is requesting to go home. Pt affect bright, smiling, out of her room, conversing with staff. CARE team in to speak with pt.
[2020-12-12 16:27] VITALS: BP 124/82; PULSE 110; RESP 20; TEMP 36.1; O2SAT 97
--- NOTE | 2020-12-12 16:36 | MHC.CARE ---
Addendum entered by Abril Martinez, [facility] 12/12/20 19:34: CARE Team follows up with Vanessa Valenzuela, . Vanessa identifies that the main goal for inpt psych admission is to get pt's medications corrected. She identifies that during pt's last admission to this past July, she was put on medications that were really working well for her, however, her outpatient psychiatrist Maurizio Cisneros from [facility] did not continue these medications because he did not have the discharge information from . Pt was moving group homes at the time, and medications changes were not updated. Vanessa states that there is a pattern of behavior where when pt has a difficulty interaction with staff, she cuts herself and calls an ambulance in order to leave the [facility]ci and spend time in the ED. Vanessa states that they hope medication changes will help to decrease the self harming behaviors. CARE Team identifies that pt is now max for safety, and there are currently no beds available on . Plan at this time is for a psych consult, with the hope that pt can be re-started on the medications that she was on upon her last d/c from , as pt and her outpatient team feel this would be best. Her team would like for psychiatry to either speak with pt's outpatient psychiatrist, or provide clear documentation of what medications pt is supposed to be taking. If these goals can be met, fci is agreeable to take pt back to the fci without an inpt admission. Given that pt denies SI currently, and self harm is a part of pt's baseline, IPLOC is seemingly no longer necessary. ED provider, SINAN Mata places psych consult and CARE Team communicates plan to Cynthia Cavazos, who agrees to assist with this. Pt is frustrated with this plan, stating she would like to make a safety contract and leave tonight. CARE Team speaks with [facility] crisis, who reports that they will not be able to meet with pt tonight for an MSU. Original Note: Patient requesting throughout the day to speak with N or a clinician, has been asking for discharge. [facility] has maintained they will do the 24hr update when the bed search is exhausted for the day, no time given. CARE team met with patient in room 4 in the area of the ED. She offered her reasons for wanting to go home: stated that she does not want to kill herself though admitted to behaving impulsively and cutting herself. Has only self-harmed 3-4 times in the last few weeks which is quite different than her historical multiple times daily. Patient reported that she is trying very hard to adjust to her new fci, believes that she has been doing well despite coming to the ED with cuts two days ago. Additionally, she bought a laptop with her stimulus money and has been taking an online math class towards her GED. Stated she has a childhood friend coming for a visit and does not want to miss that by being hospitalized?has not been inpatient for almost five months. Call to group captain, Louis [phone] (cell [phone]) to gather more information. He gave his (?non-clinical?) opinion that patient?s behavior warrants an inpatient admission to have her medications adjusted?maybe needs a moth exterminator placement. Stated that patient has singled out one staff person that she blames for everything, has been making statements about not believing that all the good things happening are not going to last and then at times when she is upset says she does not want to live. Louis confirmed no cutting for 14 days until last week, just had an intake with a new therapist, is going to be attending groups at [facility], has paid off her debts, obtained her own DBT workbooks, attends appointments and takes medication as prescribed. She has been in this placement since Sep. He believes the team will support an inpatient admission vs being discharged suggested calling Vanessa Valenzuela [phone].
--- NOTE | 2020-12-12 17:53 | PC.NURSE ---
Remains on 1:1. Eating dinner at current. Bright, social. No complaints at this time.
[2020-12-12 19:14] VITALS: BP 100/67; PULSE 96; RESP 20; TEMP 36.1; O2SAT 99
[2020-12-12 19:55] VITALS: BP 100/67; PULSE 81
[2020-12-12] MEDS: Prazosin HCL 5 MG CAPSULE PO (19:55)
[2020-12-12] MEDS: Lithium Carbonate ER 300 MG TABLET.ER 600 MG PO (19:56)
[2020-12-12] MEDS: traZODone HCL 50 MG TABLET PO (19:57)
[2020-12-12] MEDS: Mirtazapine 15 MG TABLET PO (19:58)
[2020-12-12] MEDS: chlorproMAZINE HCl 100 MG TABLET PO ×2 (19:58→23:59)
[2020-12-12] MEDS: Fluticasone Propionate 100 MCG BLST.W.DEV 2 PUFF INHALE (19:59)
[2020-12-12] MEDS: diphenhydrAMINE HCL 25 MG TABLET 50 MG PO (23:59)
[2020-12-13] MEDS: LORazepam 1 MG TABLET PO
--- NOTE | 2020-12-13 00:06 | PC.NURSE ---
Patient continues asking for IM shot for sleep, provider notified/requested to talk to patient, patient agreed to take additional PO medication instead IM medication, Thorazine 100 mg apo and Benadryl 50 mg ordered/administered as ordered with standing PRN Ativan order, patient compliant with PO medication/pending effect, patient is maintained 1:1 for observation, will continue to monitor.
[2020-12-13 00:23] VITALS: BP 109/70; PULSE 88; RESP 20; TEMP 36.5; O2SAT 97
--- NOTE | 2020-12-13 07:23 | PC.NURSE ---
Report received from NINA Russell. Pt resting, resp unlabored. 1:1 at bedside.
[2020-12-13] MEDS: Nicotine 14 MG PATCH.TD24 TRANSDERMA (08:36)
[2020-12-13] MEDS: Fluticasone Propionate 100 MCG BLST.W.DEV 2 PUFF INHALE (08:36)
[2020-12-13] MEDS: Topiramate 25 MG TABLET PO (08:36)
[2020-12-13] MEDS: DULoxetine HCl 60 MG CAPSULE.DR PO (08:36)
[2020-12-13] MEDS: Loratadine 10 MG TABLET PO (08:37)
[2020-12-13] MEDS: Omeprazole 20 MG CAPSULE.DR PO (08:37)
[2020-12-13 08:45] VITALS: BP 110/66; PULSE 98; RESP 20; TEMP 36.4; O2SAT 97
--- NOTE | 2020-12-13 09:04 | PC.NURSE ---
Pt awake, alert. Affect bright. Pt denies SI or any thoughts of harming herself at this time.
--- NOTE | 2020-12-13 09:05 | PC.NURSE ---
Dr. Pro in to evaluate
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
--- NOTE | 2020-12-13 11:37 | PC.NURSE ---
Addendum entered by Hodan Live 12/13/20 11:46: Louis called to notify of pt discharge. States he will be sending staff to pick pt up. Pt aware. Original Note: Spoke w/ care team, Marcela Adams, and with Louis, at [facility] [phone]. Pt states she is ready for discharge, denies SI or any thoughts of self harm. Louis at [facility] aware of medication changes made. Marcela Adams to fax to [facility] per request of [facility]. Pt aware of med changes, in agreement w/ plan to discharge..
== END 2020-12-13 11:48 | disposition home or self-care (01) ==
PROVIDERS: Nurse Practitioner Family; Physician Assistant; Emergency Provider Internal Medicine
DX: S51.811A Laceration without foreign body of right forearm, initial encounter (principal); X78.8XXA Intentional self-harm by other sharp object, initial encounter; F33.3 Major depressive disorder, recurrent, severe with psychotic symptoms; F60.3 Borderline personality disorder; F43.11 Post-traumatic stress disorder, acute; Z48.02 Encounter for removal of sutures; S51.812D Laceration without foreign body of left forearm, subsequent encounter; X78.8XXD Intentional self-harm by other sharp object, subsequent encounter; Z20.822 Contact with and (suspected) exposure to COVID-19; F43.20 Adjustment disorder, unspecified; F17.210 Nicotine dependence, cigarettes, uncomplicated; F12.90 Cannabis use, unspecified, uncomplicated; Y93.9 Activity, unspecified; Y92.042 Bedroom in boarding-house as the place of occurrence of the external cause; Y99.9 Unspecified external cause status; Z91.5 Personal history of self-harm
CPT/HCPCS: 12035; 36415; 80053; 80178; 85025; 86704; 86803; 87340; 87389; 87635; 90471; 90715; 96372; 99285; J2060; Q0163

== ENCOUNTER → 2020-12-20 09:43 | Outpatient (BNVA) | payer OTHER, SELFPAY | PROVIDERS: PCP Internal Medicine; Visit Provider Physician Assistant | DX: S83.511D Sprain of anterior cruciate ligament of right knee, subsequent encounter (principal) | CPT/HCPCS: 99212 ==

== ENCOUNTER 2020-12-24 16:14 | Emergency (ER) | payer OTHER, SELFPAY ==
--- NOTE | ~2020-12-24 | CT_ITS ---
EXAMINATION: CT HEAD WITHOUT CONTRAST CLINICAL INFORMATION: Patient repeatedly hit head against a wall in a suicide attempt. COMPARISON: Head CT 07/27/2020 TECHNIQUE: Contiguous axial imaging was performed from the skull base to vertex without intravenous administration of contrast. This CT examination was performed using dose optimization techniques as appropriate, variously including the following: *Automated exposure control *Adjustment of mA and/or kV according to patient size (this includes techniques or standardized protocols for targeted exams where dose is matched to indication/reason for exam; i.e. extremities or head) *Use of iterative reconstruction technique DLP: 666 mGy-cm FINDINGS: There is no evidence of acute intracranial hemorrhage or territorial infarction. No abnormal mass effect or midline shift is seen. Diaz to white matter differentiation is well preserved. No extra-axial fluid collections are identified. The ventricles are normal in size. There is no abnormal attenuation within the brain parenchyma. Soft tissue swelling of the anterior scalp. No underlying osseous injury. The mastoid air cells and visualized portions of the paranasal sinuses are well aerated. CT/CT head/brain wo con IMPRESSION: -Soft tissue swelling of the anterior scalp. No underlying osseous injury. -No acute intracranial pathology.
[2020-12-24 16:20] VITALS: BP 140/91; PULSE 95; RESP 18; TEMP 36.6; O2SAT 97; BMI 54.3
--- NOTE | 2020-12-24 17:42 | ED.PSYCH ---
HPI - Psych General Chief Complaint: Psychiatric Symptoms Stated Complaint: crisis Time Seen by Provider: 12/24/20 17:28 Source: patient Mode of arrival: ambulatory Limitations: no limitations History of Present Illness HPI Narrative: Patient is a 35-year-old female with a past medical history of schizoaffective disorder, borderline personality disorder, major depression, history of suicide attempts and PTSD presenting after suicide attempt. Patient states she had her head repeatedly against the wall yesterday, damaging the wall, she is reporting visual changes as well as headache but denies dizziness nausea vomiting. Patient does wear glasses and she is not wearing them currently. Patient states she has a 2nd planned to drink a bottle of Benadryl and take a bottle of aspirin. She states she lives in a nursing home and the people in her nursing home noticed her behavior has changed. She states she has had depression symptoms for the past week that is worse than her baseline and everything got worse today. She reports visual hallucinations as well as auditory hallucinations. She states she has been taking her medications on a daily basis. He also is complaining of right lower tooth pain, she states she just had a tooth removed and she had drains which were pulled last week. Her dentist put her on Augmentin she is taking 500 mg 4 times a day. She just missed her 16:00 dose. She denies any fevers. She has no other physical complaints at this time. Related Data Home Medications Medication Instructions Recorded Confirmed sumatriptan succinate 1 tab PO NEEDED PRN 11/05/20 12/10/20 omeprazole 20 mg PO DAILY 11/29/20 12/24/20 acetaminophen 650 mg PO Q6H PRN 12/10/20 12/24/20 albuterol sulfate [ProAir HFA] 2 puff INHALATION Q6-8H PRN 12/10/20 12/24/20 hydroxyzine pamoate 1 cap PO BID PRN 12/10/20 12/10/20 ibuprofen 600 mg PO Q8H PRN 12/10/20 12/24/20 mirtazapine 1 tab PO BEDTIME 12/10/20 12/24/20 nicotine 1 patch TRANSDERMAL DAILY 12/10/20 12/24/20 amoxicillin 1 cap PO TID 12/24/20 12/24/20 cetirizine 10 mg PO DAILY 12/24/20 12/24/20 fluticasone propionate 1 spray INTRANASAL BID 12/24/20 12/24/20 fluticasone propionate [Flovent 2 puff INHALATION BID 12/24/20 12/24/20 HFA] hydroxyzine pamoate [Vistaril] 50 mg PO TID PRN 12/24/20 12/24/20 naproxen 1 tab PO Q8-12H PRN 12/24/20 12/24/20 topiramate 1 tab PO BID 12/24/20 12/24/20 Previous Rx's Medication Instructions Recorded chlorpromazine 100 mg PO BEDTIME #30 tab 08/19/20 duloxetine 60 mg PO DAILY 30 Days #30 cap 08/19/20 haloperidol 5 mg PO BID PRN 30 Days #60 tab 08/19/20 lithium carbonate 600 mg PO BEDTIME #30 tab 08/19/20 lorazepam 1 mg PO BEDTIME 30 Days #30 tab 08/19/20 lorazepam 1 mg PO TID PRN 30 Days #90 tab 08/19/20 prazosin 5 mg PO BEDTIME 30 Days #30 cap 08/19/20 trazodone 50 mg PO BEDTIME PRN 30 Days #30 08/19/20 tab leg brace #1 ea 11/14/20 Allergies Allergy/AdvReac Type Severity Reaction Status Date / Time carbamazepine [From TEGRETOL] AdvReac Unknown NAUSEA & Verified 11/14/20 11:53 VOMITING Review of Systems Review of Systems: Yes all other systems are reviewed and are negative PMFSH Past Medical History Medical History Adjustment disorder Anxiety Asthma Borderline personality disorder COPD (chronic obstructive pulmonary disease) Depression GERD (gastroesophageal reflux disease) Increased BMI Injury, self-inflicted Intentional self-harm PTSD (post-traumatic stress disorder) Recurrent major depression-severe Schizoaffective disorder Self-harming behavior Suicidal ideation Suicidal ideation Social History Social History Household Members: Other Household Members Other:: nursing home Housing: House Alcohol intake: unknown Smoking Status: Heavy tobacco smoker Tobacco Type: Cigarette Packs Per Day: 0.5 Cigarettes Per Day: 1 Years Smoked: 10 Smoked in Last 30 Days: Yes Second Hand Smoke Exposure: No Use of substances other than those prescribed or required for medical reasons: Yes Substance Use Type: Marijuana Substance Use Frequency: Chronic Longstanding Last Used Substance: Hours (ago) Any prior treatment program specific to substance use: No Advance Directives: No Advance Directives Information Provided: Yes Patient : No service: No Physical Exam Vital Signs: Vital Signs: Last Vital Signs Temp 97.8 F 12/24/20 16:20 Pulse 95 12/24/20 16:20 Resp 18 12/24/20 16:20 BP 140/91 H 12/24/20 16:20 Pulse Ox 97 12/24/20 16:20 Body Mass Index 54.3 Const: General: cooperative, healthy appearing, comfortable, no acute distress and well developed Orientation/consciousness: patient oriented x3 Limitations: no limitations HENMT: Head: Yes No palpable skull fracture present, No Bello's sign, Yes contusion (With 3 cm linear superficial laceration on forehead), No raccoon eyes, No scalp tenderness and No periorbital ecchymosis Ears: hearing grossly normal bilaterally and external ears normal General nose exam: Normal external nose present Face and sinus: Yes normal facial exam Mouth: Normal oral and palatal mucosa present Teeth and gingiva: caries (Level right side, patient is missing several teeth) and poor dentition Eyes: General: appearance normal, both eyes and all related structures Alignment and Position: alignment normal Eyelids: Yes eyelids normal Conjunctivae: conjunctivae normal Sclerae: sclerae normal Corneas: corneas normal Pupils: Dilated pupils bilaterally and Pupil size comments (dilated, not reactive) EOM: EOMs intact bilaterally Neck: Neck: Yes normal visual inspection and Yes full ROM Resp: Effort & Inspection: normal respiratory effort and able to speak in complete sentences Cardio: Rate: regular rate Skin: General skin exam: no rashes or lesions noted Neuro: General: patient oriented x3 Extrem: General: Yes normal to inspection Course Course Course Narrative: Pupils not reactive, likely 2/2 medication. Will get head CT as patient has been being her head a lot lately according to the nursing home. Will continue antibiotics for patient while she is in the emergency department. Patient also requesting Haldol which she takes p.r.n. at home. Will also give Tylenol for her headache. Will get U tox. Once head CT is negative, patient will be cleared. Reevaluation(s) Reevaluation #1: Head CT negative for any acute intracranial pathology. Patient is medically cleared. Will put in consult and care team. MDM - Psych Imaging Data CT scan - head: Attestation: I personally reviewed and interpreted this imaging study as follows: Radiologist's impression: [address] [id number] Scan ReportSigned Patient: Stella CappsMR#: [id number]: [id number]:[id number]/Sex: 35 / FADM Date: 12/24/20Loc: HO.EDAttending Dr: Ordering Physician: Nohemi Iyer PA-C Date of Service: 12/24/20 Procedure(s): CT head/brain wo con Accession Number(s): [id number] cc: Nohemi Iyer PA-C~ EXAMINATION: CT HEAD WITHOUT CONTRAST CLINICAL INFORMATION: Patient repeatedly hit head against a wall in a suicide attempt. COMPARISON: Head CT 07/27/2020 TECHNIQUE: Contiguous axial imaging was performed from the skull base to vertex without intravenous administration of contrast. This CT examination was performed using dose optimization techniques as appropriate, variously including the following: *Automated exposure control *Adjustment of mA and/or kV according to patient size (this includes techniques or standardized protocols for targeted exams where dose is matched to indication/reason for exam; i.e. extremities or head) *Use of iterative reconstruction technique DLP: 666 mGy-cm FINDINGS: There is no evidence of acute intracranial hemorrhage or territorial infarction. No abnormal mass effect or midline shift is seen. Diaz to white matter differentiation is well preserved. No extra-axial fluid collections are identified. The ventricles are normal in size. There is no abnormal attenuation within the brain parenchyma. Soft tissue swelling of the anterior scalp. No underlying osseous injury. The mastoid air cells and visualized portions of the paranasal sinuses are well aerated. CT/CT head/brain wo con IMPRESSION: -Soft tissue swelling of the anterior scalp. No underlying osseous injury. -No acute intracranial pathology. Dictated By:NATALI CANELA MDSigned By:<Electronically signed by NATALI CANELA MD in OV>12/24/201838 DD/ 39TD/TT: Commercial Sales Representative: PD Discharge Plan Discharge Prescriptions: No Action sumatriptan succinate 50 mg tablet 1 tab PO NEEDED PRN (Reason: Migraine Headache) RF: 0 omeprazole 20 mg capsule,delayed release(DR/EC) 20 mg PO DAILY RF: 0 chlorpromazine 100 mg Tablet 100 mg PO BEDTIME Qty: 30 RF: 0 lorazepam 1 mg Tablet 1 mg PO BEDTIME 30 Days Qty: 30 RF: 0 lorazepam 1 mg Tablet 1 mg PO TID PRN (Reason: Anxiety/Restlessness ) 30 Days Qty: 90 RF: 0 trazodone 50 mg Tablet 50 mg PO BEDTIME PRN (Reason: Insomnia) 30 Days Qty: 30 RF: 0 lithium carbonate 300 mg Tablet Extended Release 600 mg PO BEDTIME Qty: 30 RF: 0 prazosin 5 mg Capsule 5 mg PO BEDTIME 30 Days Qty: 30 RF: 0 duloxetine 60 mg Capsule,Delayed Release(Dr/Ec) 60 mg PO DAILY 30 Days Qty: 30 RF: 0 haloperidol 5 mg Tablet 5 mg PO BID PRN (Reason: psychosis) 30 Days Qty: 60 RF: 0 hydroxyzine pamoate 50 mg capsule 1 cap PO BID PRN (Reason: Anxiety) RF: 0 mirtazapine 15 mg tablet 1 tab PO BEDTIME RF: 0 albuterol sulfate [ProAir HFA] 90 mcg/actuation HFA aerosol inhaler 2 puff inhalation Q6-8H PRN (Reason: Wheezing) RF: 0 acetaminophen 500 mg Tablet 650 mg PO Q6H PRN (Reason: Pain) RF: 0 nicotine 21 mg/24 hr Patch 24 Hour 1 patch TRANSDERMAL DAILY RF: 0 ibuprofen 600 mg Tablet 600 mg PO Q8H PRN (Reason: Pain) RF: 0 hydroxyzine pamoate [Vistaril] 50 mg capsule 50 mg PO TID PRN (Reason: Anxiety) RF: 0 cetirizine 10 mg Tablet 10 mg PO DAILY RF: 0 fluticasone propionate 50 mcg/actuation spray,suspension 1 spray intranasal BID RF: 0 naproxen 500 mg tablet 1 tab PO Q8-12H PRN (Reason: Toothache) RF: 0 amoxicillin 500 mg capsule 1 cap PO TID RF: 0 topiramate 25 mg tablet 1 tab PO BID RF: 0 Flovent HFA 110 mcg/actuation HFA aerosol inhaler 2 puff inhalation BID RF: 0 (DME) leg brace Misc See Rx Instructions miscellaneous .MEDSUPPLY Qty: 1 RF: 0
[2020-12-24] MEDS: Acetaminophen 325 MG TABLET 650 MG PO (18:27)
[2020-12-24] MEDS: HaloperidoL 5 MG TABLET PO (18:27)
[2020-12-24] MEDS: Amoxicillin/Potassium Clav 500 MG TABLET PO (18:28)
--- NOTE | 2020-12-24 19:12 | PC.NURSE ---
Report received. PT is sitting in her room with sitter. PT was trying to harm self earlier by punching self in the face and banging head against the wall, but is not doing so at this time. PT is currently in no apparent distress.
[2020-12-24] MEDS: chlorproMAZINE HCl 100 MG TABLET PO (19:24)
[2020-12-24] MEDS: LORazepam 1 MG TABLET PO (19:25)
[2020-12-24] MEDS: Lithium Carbonate 300 MG CAPSULE 600 MG PO (19:25)
--- NOTE | 2020-12-24 20:05 | PC.NURSE ---
Chelsea faxed and called.
--- NOTE | 2020-12-24 23:17 | PC.NURSE ---
Patient in bed appears sleeping, N called/spoke with Keiko, notified that Clinician ETA is 11.30 pm, will continue to monitor on 1:1 for safety.
[2020-12-25] MEDS: Amoxicillin/Potassium Clav 500 MG TABLET PO (00:08)
--- NOTE | 2020-12-25 00:47 | PC.NURSE ---
BHN at bedside, patient engaged
[2020-12-25 01:16] VITALS: BP 120/78; PULSE 80; RESP 18; TEMP 36.1; O2SAT 97
[2020-12-25] MEDS: Omeprazole 20 MG CAPSULE.DR PO (05:34)
[2020-12-25 05:59] LABS: COVID-19 Test Negative (Negative)
--- NOTE | 2020-12-25 07:29 | PC.NURSE ---
Report received from Drew WOOD. Pt sleeping at this time, 1:1 maintained for pt safety. In patient bedsearch ongoing.
[2020-12-25] MEDS: Amoxicillin 500 MG CAPSULE PO ×3 (10:45→20:57)
[2020-12-25] MEDS: Loratadine 10 MG TABLET PO (10:45)
[2020-12-25] MEDS: DULoxetine HCl 60 MG CAPSULE.DR PO (10:45)
[2020-12-25] MEDS: Nicotine 21 MG PATCH.TD24 TRANSDERMA (10:45)
[2020-12-25] MEDS: HaloperidoL 5 MG TABLET PO ×2 (10:45→15:20)
[2020-12-25] MEDS: LORazepam 1 MG TABLET PO ×3 (10:45→20:57)
[2020-12-25] MEDS: Topiramate 25 MG TABLET PO ×2 (10:46→20:58)
--- NOTE | 2020-12-25 10:51 | PC.NURSE ---
Pt requesting prn meds, medicated with po haldol and ativan. Pt medicated with morning meds, nicotine patch to left deltoid. Sitter maintained for safety. Pt minimally verbally responsive, answering questions with short, one word answers. New bandaid place to forehead, no active bleeding noted.
[2020-12-25] MEDS: Fluticasone Propionate Nasal 16 GM SPRAY 1 SPRAY NOSTRIL-B ×2 (10:54→21:05)
[2020-12-25] MEDS: Fluticasone Propionate 100 MCG BLST.W.DEV 2 PUFF INHALE ×2 (10:55→21:03)
--- NOTE | 2020-12-25 15:12 | PC.NURSE ---
Report received. Pt sitting in bed at current, 1:1 at bedside. Remains a section 12 bed search.
--- NOTE | 2020-12-25 17:15 | PC.NURSE ---
Pt resting in at current, calm, no signs of distress
--- NOTE | 2020-12-25 18:27 | PC.NURSE ---
Pt lightly hitting forehead with a closed fist intermittently. Mainly nonverbal, nods head from time to time, flat/depressed. 1:1 continues to sit with pt at bedside.
[2020-12-25 20:50] VITALS: BP 135/77; PULSE 96; RESP 17; TEMP 37; O2SAT 97
[2020-12-25 20:56] LABS: Amphetamine Screen Urine Not Detected (Not Detect); Barbiturates, Urine Not Detected (Not Detect); Benzodiazepines Screen Urine Not Detected (Not Detect); Cannabinoid Screen Urine POSITIVE (Not Detect); Cocaine Screen Urine Not Detected (Not Detect); Opiate Screen Urine Not Detected (Not Detect); Phencyclidine Screen Urine Not Detected (Not Detect)
[2020-12-25] MEDS: Mirtazapine 15 MG TABLET PO (20:57)
--- NOTE | 2020-12-25 21:00 | PC.NURSE ---
Patient in her room, calm and quiet at this time, patient is 1:1 on observation because of suicidal risk, compliant with her HS PO medication, no distress reported, patient expressed concerns around her ECT appointment scheduled this Wednesday, will continue to monitor.
[2020-12-25 21:01] VITALS: BP 135/77; PULSE 97
[2020-12-25] MEDS: Prazosin HCL 5 MG CAPSULE PO (21:01)
[2020-12-25 23:43] VITALS: BP 110/70; PULSE 118; RESP 18; TEMP 36.4; O2SAT 97
[2020-12-26] MEDS: Omeprazole 20 MG CAPSULE.DR PO (06:11)
--- NOTE | 2020-12-26 07:22 | PC.NURSE ---
Report received from NINA Russell. Pt resting, resp unlabored. 1:1 maintained.
[2020-12-26] MEDS: Fluticasone Propionate 100 MCG BLST.W.DEV 2 PUFF INHALE ×2 (08:00→20:18)
[2020-12-26] MEDS: Topiramate 25 MG TABLET PO ×2 (08:01→20:18)
[2020-12-26] MEDS: hydrOXYzine HCL 50 MG TABLET PO ×2 (08:01→17:48)
[2020-12-26] MEDS: Loratadine 10 MG TABLET PO (08:01)
[2020-12-26] MEDS: HaloperidoL 5 MG TABLET PO (08:01)
[2020-12-26] MEDS: Amoxicillin 500 MG CAPSULE PO ×3 (08:01→20:17)
[2020-12-26] MEDS: Nicotine 21 MG PATCH.TD24 TRANSDERMA (08:01)
[2020-12-26] MEDS: DULoxetine HCl 60 MG CAPSULE.DR PO (08:01)
--- NOTE | 2020-12-26 08:09 | PC.NURSE ---
Pt striking her head with her fist, declining to state why when asked, unable to articulate any coping strategies. Pt accepted am medications and a prn for anxiety. 1:[address]
--- NOTE | 2020-12-26 08:43 | PC.NURSE ---
Pt resting, resp unlabored, no longer hitting herself.
--- NOTE | 2020-12-26 10:51 | PC.NURSE ---
Pt resting, resp unlabored
[2020-12-26 12:39] VITALS: BP 142/81; PULSE 122; RESP 19; TEMP 36.5; O2SAT 98
[2020-12-26 14:00] VITALS: RESP 20
[2020-12-26] MEDS: Ibuprofen 600 MG TABLET PO (14:08)
[2020-12-26] MEDS: LORazepam 1 MG TABLET PO ×2 (14:08→22:49)
--- NOTE | 2020-12-26 14:55 | PC.NURSE ---
Per Kailee Cavazos, ECT tomorrow is cancelled- will resume Wednesday if pt is still here.
--- NOTE | 2020-12-26 15:54 | PC.NURSE ---
Pt resting, resp unlabored; 1:1 maintained.
[2020-12-26 16:29] VITALS: BP 108/69; PULSE 100; RESP 16; TEMP 36.8; O2SAT 96
--- NOTE | 2020-12-26 18:10 | PC.NURSE ---
Pt resting in room, reported nausea, provider aware, pt medicated as ordered, encouraged to drink fluids.
--- NOTE | 2020-12-26 19:16 | PC.NURSE ---
Patient in bed appears resting, per report patient's behavior is at baseline, often calling mother, compliant with medication, no distress observed/reported, will continue to monitor.
--- NOTE | 2020-12-26 19:21 | PC.NURSE ---
Patient in bed resting, mood pleasant at this time, denied distress, continues on 1:1 for safety observation, will continue to monitor.
[2020-12-26 20:17] VITALS: BP 117/60; PULSE 84
[2020-12-26] MEDS: Prazosin HCL 5 MG CAPSULE PO (20:17)
[2020-12-26] MEDS: Lithium Carbonate ER 300 MG TABLET.ER 600 MG PO (20:17)
[2020-12-26] MEDS: Mirtazapine 15 MG TABLET PO (20:17)
[2020-12-26] MEDS: chlorproMAZINE HCl 100 MG TABLET PO (20:18)
[2020-12-26] MEDS: Fluticasone Propionate Nasal 16 GM SPRAY 1 SPRAY NOSTRIL-B (20:18)
[2020-12-26 20:21] VITALS: BP 117/60; PULSE 84; RESP 18; TEMP 36.6; O2SAT 96
[2020-12-26] MEDS: traZODone HCL 50 MG TABLET PO (20:56)
[2020-12-26] MEDS: Docusate Sodium 100 MG CAPSULE PO (21:40)
[2020-12-26] MEDS: diphenhydrAMINE HCL 25 MG TABLET 50 MG PO (23:25)
[2020-12-27] MEDS: Omeprazole 20 MG CAPSULE.DR PO (06:33)
--- NOTE | 2020-12-27 07:29 | PC.NURSE ---
Report received from INNA Russell. Pt awake, requesting female 1:1. Pt aware female staff is on their way. Pt currently resting, resp unlabored.
[2020-12-27] MEDS: Nicotine 21 MG PATCH.TD24 TRANSDERMA (08:06)
[2020-12-27] MEDS: Amoxicillin 500 MG CAPSULE PO ×3 (08:06→20:23)
[2020-12-27] MEDS: DULoxetine HCl 60 MG CAPSULE.DR PO (08:06)
[2020-12-27] MEDS: Loratadine 10 MG TABLET PO (08:06)
[2020-12-27] MEDS: Topiramate 25 MG TABLET PO ×2 (08:11→20:23)
--- NOTE | 2020-12-27 12:33 | PC.NURSE ---
Pt requesting medication for anxiety, . 1:1 currently w/ pt.
[2020-12-27] MEDS: HaloperidoL 5 MG TABLET PO (12:36)
[2020-12-27 13:00] VITALS: BP 117/70; RESP 20; TEMP 36.9; O2SAT 97
[2020-12-27] MEDS: LORazepam 1 MG TABLET PO (13:23)
[2020-12-27 14:00] VITALS: RESP 20
--- NOTE | 2020-12-27 15:23 | PC.NURSE ---
Late entry: pt banging head against wall while another pt was agitated, stating that she didn't like being in the pod with agitated males. Pt is requesting conslt with psychiatry, would like to have a conversation w/ MD about resuming Haldol Dec
[2020-12-27 16:20] VITALS: BP 96/58; PULSE 88; RESP 18; TEMP 37.2; O2SAT 98
[2020-12-27 16:37] LABS: Lithium 0.29 mmol/L (0.60-1.20)
--- NOTE | 2020-12-27 17:19 | PC.NURSE ---
Pt resting, resp unlabored, 1:1 at bedside
--- NOTE | 2020-12-27 19:34 | PC.NURSE ---
Report received. PT is resting quietly in bed. 1:1 sitter with PT. Calm and cooperative. PT is inpatient bed search.
[2020-12-27] MEDS: Mirtazapine 15 MG TABLET PO (20:23)
[2020-12-27] MEDS: Lithium Carbonate ER 300 MG TABLET.ER 600 MG PO (20:23)
[2020-12-27] MEDS: chlorproMAZINE HCl 100 MG TABLET PO (20:24)
[2020-12-27 20:25] VITALS: BP 97/58; PULSE 93
[2020-12-27] MEDS: Prazosin HCL 5 MG CAPSULE PO (20:25)
[2020-12-27] MEDS: traZODone HCL 50 MG TABLET PO (20:25)
[2020-12-28 06:24] VITALS: BP 102/60; PULSE 88; RESP 16; TEMP 37.2; O2SAT 98
--- NOTE | 2020-12-28 06:55 | PC.NURSE ---
received report from prior RN patient appears in no distress, asleep; respirates with even unlabored breaths
[2020-12-28] MEDS: Topiramate 25 MG TABLET PO (08:08)
[2020-12-28] MEDS: Omeprazole 20 MG CAPSULE.DR PO (08:08)
[2020-12-28] MEDS: Amoxicillin 500 MG CAPSULE PO (08:08)
[2020-12-28] MEDS: DULoxetine HCl 60 MG CAPSULE.DR PO (08:08)
[2020-12-28] MEDS: Loratadine 10 MG TABLET PO (08:08)
--- NOTE | 2020-12-28 09:17 | MHC.CARE ---
CARE called Jazlyn and spoke chapo Hinton (supervisor soldering) and confirmed pts plan in [facility] she was seen last night at 2110 for a MSU.
[2020-12-28] MEDS: Docusate Sodium 100 MG CAPSULE PO (12:00)
[2020-12-28] MEDS: Albuterol Sulfate 90 MCG 8 GM INHALER 2 PUFF INHALE (13:52)
--- NOTE | 2020-12-28 14:13 | PC.NURSE ---
BHN at bedside for MSU
[2020-12-28] MEDS: Ibuprofen 600 MG TABLET PO (14:49)
== END 2020-12-28 15:46 | disposition home or self-care (01) ==
PROVIDERS: Emergency Medicine; Physician Assistant; Emergency Provider Internal Medicine
DX: R45.851 Suicidal ideations (principal); F32.9 Major depressive disorder, single episode, unspecified; F23 Brief psychotic disorder; F60.3 Borderline personality disorder; Z91.5 Personal history of self-harm; F43.11 Post-traumatic stress disorder, acute; S00.83XA Contusion of other part of head, initial encounter; S01.81XA Laceration without foreign body of other part of head, initial encounter; W22.09XA Striking against other stationary object, initial encounter; R51.9 Headache, unspecified; K02.9 Dental caries, unspecified; Z20.822 Contact with and (suspected) exposure to COVID-19; F17.210 Nicotine dependence, cigarettes, uncomplicated; F12.90 Cannabis use, unspecified, uncomplicated; Y93.89 Activity, other specified; Y92.042 Bedroom in boarding-house as the place of occurrence of the external cause; Y99.9 Unspecified external cause status; Z79.899 Other long term (current) drug therapy
CPT/HCPCS: 36415; 70450; 80178; 80307; 87635; 99285; Q0163

== ENCOUNTER 2021-01-06 14:42 | Emergency (ER) | payer OTHER, SELFPAY ==
[2021-01-06 15:34] VITALS: BP 132/86; PULSE 90; RESP 18; TEMP 35.6; O2SAT 98; BMI 50.5
[2021-01-06 17:43] LABS: MANUAL DIFF FLAG NO
[2021-01-06 17:44] LABS: Basophils Percent Auto 0.1 % (0-2); Hematocrit 33.4 % (37-47); Hemoglobin 10.3 g/dl (12.0-16.0); Imm Gran Abs Auto 0.02 X10*3/uL (0.00-0.03); Imm Gran Pct Auto 0.3 % (0.0-0.4); Lymphocytes Absolute Auto 2.8 X10*3/uL (1.2-4.9); Lymphocytes Percent Auto 35.3 % (20-40); Mean Corpuscular HGB Conc 30.8 g/dl (31.0-35.0); Mean Corpuscular Hemoglobin 25.2 pg (27.0-33.0); Mean Corpuscular Volume 81.9 fL (80-98); Mean Platelet Volume 10.4 fL (9.4-12.3); Monocytes Absolute Auto 0.5 X10*3/uL (0.1-1.2); Monocytes Percent Auto 6.1 % (2-11); Neutrophils Absolute Auto 4.6 X10*3/uL (2.0-8.3); Neutrophils Percent Auto 58.2 % (45-73); Platelet Count 340 X10*3/uL (160-400); Red Blood Count 4.08 X10*6/uL (4.20-5.50); White Blood Count 7.9 X10*3/uL (4.8-10.8)
--- NOTE | 2021-01-06 17:59 | ED.GENADULT ---
HPI - General Adult General Chief complaint: General Medical Stated complaint: DIZZY HEADACHE Time Seen by Provider: 01/06/21 19:51 Source: patient Mode of arrival: ambulatory Limitations: no limitations History of Present Illness HPI narrative: 35-year-old female with significant psychiatric history presents with nausea, headache, and shortness of breath. States that she has been out of her asthma medications and has not used an inhaler, states that she has a headache because she can not breathe right and the headache is causing nausea. She does not report any other concerning symptoms. She did not report any suicidal or homicidal ideation, and has not harmed herself in any way over the past few weeks. She states to feel relatively well psychologically but the shortness of breath has been concerning her. She does not report any chest pain or pressure, palpitations, abdominal pain, abdominal distention, dysuria, hematuria, vomiting, diarrhea, constipation, melena, hematochezia, or edema. Onset (ago): week(s) (1) Location: head Severity: mild Quality: other (Throbbing) Pain Consistency: constant Relieving factors: none Exacerbating factors: movement Associated symptoms: denies other symptoms Treatments prior to arrival: none Related Data Home Medications Medication Instructions Recorded Confirmed sumatriptan succinate 1 tab PO NEEDED PRN 11/05/20 12/10/20 omeprazole 20 mg PO DAILY 11/29/20 12/24/20 acetaminophen 650 mg PO Q6H PRN 12/10/20 12/24/20 albuterol sulfate [ProAir HFA] 2 puff INHALATION Q6-8H PRN 12/10/20 12/24/20 hydroxyzine pamoate 1 cap PO BID PRN 12/10/20 12/10/20 ibuprofen 600 mg PO Q8H PRN 12/10/20 12/24/20 mirtazapine 1 tab PO BEDTIME 12/10/20 12/24/20 nicotine 1 patch TRANSDERMAL DAILY 12/10/20 12/24/20 amoxicillin 1 cap PO TID 12/24/20 12/24/20 cetirizine 10 mg PO DAILY 12/24/20 12/24/20 fluticasone propionate 1 spray INTRANASAL BID 12/24/20 12/24/20 fluticasone propionate [Flovent 2 puff INHALATION BID 12/24/20 12/24/20 HFA] hydroxyzine pamoate [Vistaril] 50 mg PO TID PRN 12/24/20 12/24/20 naproxen 1 tab PO Q8-12H PRN 12/24/20 12/24/20 topiramate 1 tab PO BID 12/24/20 12/24/20 Previous Rx's Medication Instructions Recorded chlorpromazine 100 mg PO BEDTIME #30 tab 08/19/20 duloxetine 60 mg PO DAILY 30 Days #30 cap 08/19/20 haloperidol 5 mg PO BID PRN 30 Days #60 tab 08/19/20 lithium carbonate 600 mg PO BEDTIME #30 tab 08/19/20 lorazepam 1 mg PO BEDTIME 30 Days #30 tab 08/19/20 lorazepam 1 mg PO TID PRN 30 Days #90 tab 08/19/20 prazosin 5 mg PO BEDTIME 30 Days #30 cap 08/19/20 trazodone 50 mg PO BEDTIME PRN 30 Days #30 08/19/20 tab leg brace #1 ea 11/14/20 Allergies Allergy/AdvReac Type Severity Reaction Status Date / Time carbamazepine [From TEGRETOL] AdvReac Unknown NAUSEA & Verified 11/14/20 11:53 VOMITING Review of Systems Review of Systems: Constitutional: No Fever, No Chills ENT/Mouth: No Ear Pain, No Hoarseness, No sore throat Eyes: No Eye Pain, No Swelling, No Redness, No Foreign Body Cardiovascular: No Chest Pain, No SOB Respiratory: Positive shortness breath, No Cough, No Dyspnea Gastrointestinal: No Nausea, No Vomiting, No Diarrhea, No abdominal Pain Genitourinary: No Dysuria, No Hematuria Musculoskeletal: positive joint pain, No Myalgias, No Joint Swelling Skin: No Skin lacerations, No rash Neuro: Positive headache, No Weakness, No Numbness, No Paresthesias, No Loss of Consciousness, No Dizziness Psych: No Anxiety/Panic, No Depression Heme/Lymph: no easy bruising, no Lymphadenopathy Endocrine: No Polyuria, No Polydipsia Yes all other systems are reviewed and are negative [facility] Past Medical History Attestation statement: The following information was validated with the patient. Source: old records reviewed Medical History Adjustment disorder Anxiety Asthma Borderline personality disorder COPD (chronic obstructive pulmonary disease) Depression GERD (gastroesophageal reflux disease) Increased BMI Injury, self-inflicted Intentional self-harm PTSD (post-traumatic stress disorder) Recurrent major depression-severe Schizoaffective disorder Self-harming behavior Suicidal ideation Suicidal ideation Social History Social History Household Members: Other Household Members Other:: [facility] Housing: House Alcohol intake: unknown Smoking Status: Heavy tobacco smoker Tobacco Type: Cigarette Packs Per Day: 0.5 Cigarettes Per Day: 1 Years Smoked: 10 Second Hand Smoke Exposure: No Substance Use Type: Marijuana Advance Directives: No Advance Directives Information Provided: Yes Patient : No service: No Physical Exam Vital Signs: Vital Signs: Last Vital Signs Temp 96.1 F L 01/06/21 15:34 Pulse 75 01/06/21 20:02 Resp 20 01/06/21 20:02 BP 155/87 H 01/06/21 20:02 Pulse Ox 100 01/06/21 20:02 Body Mass Index 50.5 Appearance: Alert. Oriented X3. No acute distress. Eyes: Pupils equal, round and reactive to light. ENT: Pharynx normal. Neck: Normal inspection. Neck supple. CVS: Normal heart rate and rhythm. Pulses normal. Respiratory: No respiratory distress. Lung sounds clear to auscultation all lobes. Abdomen: Soft and nontender. Skin: Skin warm and dry. Normal skin color. Normal skin turgor. Extremities: Gait well balanced well coordinated, too numerous to count scars to all extremities from self-inflicted lacerations. Neuro: No motor deficit. No sensory deficit. Course Course Course Narrative: 35-year-old female presents with headache, nausea and shortness of breath. Has not had any of her asthma medications since she had moved. Will order albuterol, lung sounds are clear, patient is able to ambulate without any difficulty and is speaking complete sentences. States to have a headache that is throbbing, will give her Fioricet and some Zofran for the nauseousness. Patient appears well, denies SI and HI. No new wounds or indication of self-harm. Proximally hour after medication, patient states to feel well and would like to be discharged home. Patient verbalized understanding of and agrees to plan of care. Medical Decision Making Medical Records Medical records reviewed: Yes I reviewed the patient's medical records. Lab Data Lab results reviewed: Yes I reviewed the patient's lab results. Result diagrams: 01/06/21 17:30 01/06/21 17:30 Labs: Lab Results 01/06/21 01/06/21 Range/Units 17:30 17:30 WBC 7.9 (4.8-10.8) X10*3/uL RBC 4.08 L (4.20-5.50) X10*6/uL Hgb 10.3 L (12.0-16.0) g/dl Hct 33.4 L (37-47) % MCV 81.9 (80-98) fL MCH 25.2 L (27.0-33.0) pg MCHC 30.8 L (31.0-35.0) g/dl RDW 16.0 (11.0-16.0) % Plt Count 340 (160-400) X10*3/uL MPV 10.4 (9.4-12.3) fL Immature Gran % (Auto) 0.3 (0.0-0.4) % Neut % (Auto) 58.2 (45-73) % Lymph % (Auto) 35.3 (20-40) % [place] % (Auto) 6.1 (2-11) % Eos % (Auto) 0.0 (0-4) % Baso % (Auto) 0.1 (0-2) % Lymph # (Auto) 2.8 (1.2-4.9) X10*3/uL [place] # (Auto) 0.5 (0.1-1.2) X10*3/uL Eos # (Auto) 0.0 (0.0-0.4) X10*3/uL Baso # (Auto) 0.0 (0.0-0.2) X10*3/uL Abs Immat Gran (auto) 0.02 (0.00-0.03) X10*3/uL Absolute Neuts (auto) 4.6 (2.0-8.3) X10*3/uL Absolute Nucleated RBC 0.000 (0.0-0.012) X10*3/uL Nucleated RBC % (auto) 0.0 (0.0-0.2) /100WBC Sodium 136 (135-145) mmol/L Potassium 4.3 (3.3-5.1) mmol/L Chloride 111 H (96-108) mmol/L Carbon Dioxide 15 L (22-29) mmol/L Anion Gap 14 (12-20) BUN 11 (9-16) mg/dL Creatinine 0.81 (0.5-1.4) mg/dL Estim Creat Clear Calc 110.1 Estimated GFR > 60 Random Glucose 88 (60-115) mg/dL Calcium 9.0 (8.4-10.2) mg/dL Discharge Plan Discharge Clinical Impression: Headache Qualifiers: Headache type: unspecified Headache chronicity pattern: acute headache Intractability: not intractable Qualified Code(s): R51.9 - Headache, unspecified Asthma Qualifiers: Asthma severity: mild Asthma persistence: intermittent Asthma complication type: uncomplicated Qualified Code(s): J45.20 - Mild intermittent asthma, uncomplicated Patient Disposition: Home, Self-Care Instructions: Asthma (ED), Acute Headache (ED) Additional Instructions: You were evaluated for headache and mild asthma exacerbation. Please use your inhaler as directed. You may consider Tylenol and Motrin as needed for headaches. Thank you for choosing this emergency department for evaluation. Please follow-up with primary care physician as needed. Return to the emergency department for any new, concerning, or worsening symptoms. Prescriptions: No Action sumatriptan succinate 50 mg tablet 1 tab PO NEEDED PRN (Reason: Migraine Headache) RF: 0 omeprazole 20 mg capsule,delayed release(DR/EC) 20 mg PO DAILY RF: 0 chlorpromazine 100 mg Tablet 100 mg PO BEDTIME Qty: 30 RF: 0 lorazepam 1 mg Tablet 1 mg PO BEDTIME 30 Days Qty: 30 RF: 0 lorazepam 1 mg Tablet 1 mg PO TID PRN (Reason: Anxiety/Restlessness ) 30 Days Qty: 90 RF: 0 trazodone 50 mg Tablet 50 mg PO BEDTIME PRN (Reason: Insomnia) 30 Days Qty: 30 RF: 0 lithium carbonate 300 mg Tablet Extended Release 600 mg PO BEDTIME Qty: 30 RF: 0 prazosin 5 mg Capsule 5 mg PO BEDTIME 30 Days Qty: 30 RF: 0 duloxetine 60 mg Capsule,Delayed Release(Dr/Ec) 60 mg PO DAILY 30 Days Qty: 30 RF: 0 haloperidol 5 mg Tablet 5 mg PO BID PRN (Reason: psychosis) 30 Days Qty: 60 RF: 0 hydroxyzine pamoate 50 mg capsule 1 cap PO BID PRN (Reason: Anxiety) RF: 0 mirtazapine 15 mg tablet 1 tab PO BEDTIME RF: 0 albuterol sulfate [ProAir HFA] 90 mcg/actuation HFA aerosol inhaler 2 puff inhalation Q6-8H PRN (Reason: Wheezing) RF: 0 acetaminophen 500 mg Tablet 650 mg PO Q6H PRN (Reason: Pain) RF: 0 nicotine 21 mg/24 hr Patch 24 Hour 1 patch TRANSDERMAL DAILY RF: 0 ibuprofen 600 mg Tablet 600 mg PO Q8H PRN (Reason: Pain) RF: 0 hydroxyzine pamoate [Vistaril] 50 mg capsule 50 mg PO TID PRN (Reason: Anxiety) RF: 0 cetirizine 10 mg Tablet 10 mg PO DAILY RF: 0 fluticasone propionate 50 mcg/actuation spray,suspension 1 spray intranasal BID RF: 0 naproxen 500 mg tablet 1 tab PO Q8-12H PRN (Reason: Toothache) RF: 0 amoxicillin 500 mg capsule 1 cap PO TID RF: 0 topiramate 25 mg tablet 1 tab PO BID RF: 0 Flovent HFA 110 mcg/actuation HFA aerosol inhaler 2 puff inhalation BID RF: 0 (DME) leg brace Misc See Rx Instructions miscellaneous .MEDSUPPLY Qty: 1 RF: 0 Interventions: ED Discharge Assessment Last Done: 01/06/21 20:07 Discharge Date/Time: 01/06/21 20:10
[2021-01-06 18:03] LABS: Anion Gap 14 (12-20); Blood Urea Nitrogen 11 mg/dL (9-16); Carbon Dioxide 15 mmol/L (22-29); Chloride 111 mmol/L (96-108); Creatinine Clr Calc Pharmacy 110.1; Estimated Glomerular Filt Rate > 60; Glucose Random 88 mg/dL (60-115); Potassium 4.3 mmol/L (3.3-5.1); Sodium 136 mmol/L (135-145)
[2021-01-06] MEDS: Butalb/Acetamin/Caff 50/325/40 TABLET 1 TAB PO (19:35)
[2021-01-06] MEDS: Albuterol Sulfate 90 MCG 8 GM INHALER 2 PUFF INHALE (19:53)
[2021-01-06 19:55] VITALS: PULSE 90; O2SAT 98
[2021-01-06 20:02] VITALS: BP 155/87; PULSE 75; RESP 20; O2SAT 100
== END 2021-01-06 20:10 | disposition home or self-care (01) ==
PROVIDERS: Emergency Provider Emergency Medicine
DX: R51.9 Headache, unspecified (principal); J45.20 Mild intermittent asthma, uncomplicated; F17.210 Nicotine dependence, cigarettes, uncomplicated; F12.90 Cannabis use, unspecified, uncomplicated; Z79.899 Other long term (current) drug therapy
CPT/HCPCS: 36415; 80048; 85025; 94640; 99284

== ENCOUNTER 2021-01-15 06:11 | Day surgery (SDC) | payer OTHER, SELFPAY ==
[2021-01-15] VITALS (7 sets, daily range): BP systolic 113–135; BP diastolic 60–92; PULSE 76–99; RESP 16–20; TEMP 36.3–36.6; O2SAT 93–97; BMI 52.4; BMI 52.5
--- NOTE | 2021-01-15 07:02 | HO.ANESPROP2 ---
[facility] Active Problems Active Problems: All Active Problems (Updated 01/07/21 @ 00:01 by Adiel Sevilla) Sprain of anterior cruciate ligament of right knee (Acute) Self-inflicted injury (Acute) Lacerations of multiple sites of right arm (Acute) Injury of ligament of right knee (Acute) Acute post-traumatic stress disorder (Chronic) Increased BMI (Acute) GERD (gastroesophageal reflux disease) (Acute) Recurrent major depression-severe (Acute) Borderline personality disorder (Acute) Past Medical History Medical History Adjustment disorder Anxiety Asthma Borderline personality disorder COPD (chronic obstructive pulmonary disease) Depression GERD (gastroesophageal reflux disease) Increased BMI Injury, self-inflicted Intentional self-harm PTSD (post-traumatic stress disorder) Recurrent major depression-severe Schizoaffective disorder Self-harming behavior Suicidal ideation Suicidal ideation Family History Family history of problems with anesthesia: No Surgical History History of Problems with Anesthesia: No Social History Social History Household Members: Other Household Members Other:: jail Housing: House Do you presently have visiting nurse or other home services: No Alcohol intake: unknown Cigarette Packs Per Day: 0.5 Cigarettes Per Day: 1 Years Smoked: 10 Second Hand Smoke Exposure: No Substance Use Type: Marijuana Are you DNR?: No Advance Directives: No Advance Directives Information Provided: Yes service: No Meds Allergies Allergy/AdvReac Type Severity Reaction Status Date / Time carbamazepine [From TEGRETOL] AdvReac Unknown NAUSEA & Verified 11/14/20 11:53 VOMITING Home Medications Medication Instructions Recorded Confirmed Last Taken Type sumatriptan succinate 1 tab PO NEEDED PRN 11/05/20 12/10/20 Unknown History omeprazole 20 mg PO DAILY 11/29/20 12/24/20 12/24/20 08:00 History acetaminophen 650 mg PO Q6H PRN 12/10/20 12/24/20 Unknown History albuterol sulfate [ProAir HFA] 2 puff INHALATION Q6-8H PRN 12/10/20 12/24/20 Unknown History hydroxyzine pamoate 1 cap PO BID PRN 12/10/20 12/10/20 Unknown History ibuprofen 600 mg PO Q8H PRN 12/10/20 12/24/20 Unknown History mirtazapine 1 tab PO BEDTIME 12/10/20 12/24/20 12/23/20 20:00 History nicotine 1 patch TRANSDERMAL DAILY 12/10/20 12/24/20 Unknown History amoxicillin 1 cap PO TID 12/24/20 12/24/20 12/24/20 08:00 History 2 doses left! cetirizine 10 mg PO DAILY 12/24/20 12/24/20 12/23/20 09:00 History fluticasone propionate 1 spray INTRANASAL BID 12/24/20 12/24/20 12/24/20 09:00 History fluticasone propionate [Flovent 2 puff INHALATION BID 12/24/20 12/24/20 12/24/20 08:00 History HFA] hydroxyzine pamoate [Vistaril] 50 mg PO TID PRN 12/24/20 12/24/20 Unknown History naproxen 1 tab PO Q8-12H PRN 12/24/20 12/24/20 12/24/20 08:00 History topiramate 1 tab PO BID 12/24/20 12/24/20 12/24/20 08:00 History Exam Exam Date and Time: January 15, 2021 0702 Height,Weight and Vital Signs: Height 4 ft 11 in Weight 118.079 kg Last Vital Signs Temp 97.4 F 01/15/21 06:39 Pulse 99 01/15/21 06:39 Resp 16 01/15/21 06:39 BP 134/92 H 01/15/21 06:39 Pulse Ox 97 01/15/21 06:39 Airway Mallampati Class: II TM Dist: >3cm Neck ROM: Full Loose/Missing/Broken Teeth: No Heart: RRR Lungs: CTA Assessment and Plan Assessment Anesthesia Assessment: Anesthesia Plan Discussed and Chart Reviewed Final Anesthetic Review NPO: Yes ASA Class: III Final Preanesthetic Review: Meds/Allgs Chart Reviewed, Consent Obtained/Reviewed and Anes Risks/Benef Reviewed Patient Risk: Intermediate Procedure Risk: Intermediate Anesthetic Plan Anesthetic Plan: GA Disposition: Standard PACU
--- NOTE | 2021-01-15 07:33 | MHC.SHP ---
Pre-Procedural Eval Section B Chief Complaint: depression Details of Present Illness: recurrent depression Relevant Family History (Specify if Yes): No Relevant Social History: None Present Medications: see Short Stay Collaborative assessment Medical History: No relevant PMH History of Previous Operations: Relevant previous surgery/procedure and date(s) (hx ect laceration SIB ) Allergies: Allergies Allergy/AdvReac Type Severity Reaction Status Date / Time carbamazepine [From TEGRETOL] AdvReac Unknown NAUSEA & Verified 11/14/20 11:53 VOMITING Review of Systems Sugical H&P ROS: Negative: Constitution, Cardiovascular, Respiratory and Neurological and Yes, Specify: Psychiatric (anxiety periods depression no active si) Exam Surgical H&P Exam: Normal: Heart (rr), Normal: Lungs (clear) and Normal: Neurological Plan Diagnosis/Plan: Unchanged I have reviewed the history and physical and performed a pertinent physical examination on my patient. No changes have occurred unless specified.
--- NOTE | 2021-01-15 07:50 | HO.ECTPROC ---
ECT Procedure Note Diagnosis/Treatment Date of Service: 01/15/21 Diagnosis: Major Depressive Disorder Treatment: Maintenance Interval Clinical Notes: PT GENERALLY FEELING BETTER NO ACTIVE SI FEELS ECT HELPFUL ECT Settings Device: THYMATRON DGx Electrode Placement: Bitemporal Program/Pulse Width: 0.50 Energy Percent: 100 Seizure Duration By EEG (in seconds): 41 Medications Administration General Anesthetic: Etomidate (12) Muscle Relaxant: Succinylcholine (100) Ancillary Medications Analgesics: Torodol - Pre ECT Anti-emetics: Zofran - Pre ECT Miscillaneous Medications: Flumazenil Airway Management Airway Management: Bag Mask Ventilation Treatment Recommendations No Changes Recommended: No change Notes: F/U 4 WEEKS
--- NOTE | 2021-01-15 07:55 | ECG_ITS ---
Test Reason : PREOP Blood Pressure : / mmHG Vent. Rate : 082 BPM Atrial Rate : 082 BPM P-R Int : 148 ms QRS Dur : 072 ms QT Int : 396 ms P-R-T Axes : 056 060 069 degrees QTc Int : 462 ms Normal sinus rhythm Nonspecific T wave abnormality Prolonged QT Abnormal ECG When compared with ECG of 09-SEP-2020 18:44, No significant change was found Referred By: Abdoul Silva Electronically Signed By:Phillip Alex
== END 2021-01-15 09:40 | disposition home or self-care (01) ==
PROVIDERS: Visit Provider Psychiatry & Neurology Psychiatry
PROC: (CPT 90870; principal; 2021-01-15 07:30)
DX: F33.2 Major depressive disorder, recurrent severe without psychotic features (principal); F60.3 Borderline personality disorder; F25.9 Schizoaffective disorder, unspecified; F43.10 Post-traumatic stress disorder, unspecified; J44.9 Chronic obstructive pulmonary disease, unspecified; F12.90 Cannabis use, unspecified, uncomplicated; F17.200 Nicotine dependence, unspecified, uncomplicated; Z79.899 Other long term (current) drug therapy; Z88.8 Allergy status to other drugs, medicaments and biological substances
CPT/HCPCS: 90870; 93005; J0330; J1642; J1885; J2405

== ENCOUNTER 2021-02-04 15:03 | Emergency (ER) | payer OTHER, SELFPAY ==
--- NOTE | ~2021-02-04 | CT_ITS ---
EXAMINATION: CT ABDOMEN AND PELVIS WITHOUT CONTRAST CLINICAL INFORMATION: Lower abdominal pain COMPARISON: CT abdomen pelvis 10/26/2012 TECHNIQUE: Multidetector volumetric imaging was performed from the superior aspect of the liver through the pubic symphysis. Sagittal and coronal reformatted images were obtained on the technologist's workstation. This CT examination was performed using dose optimization techniques as appropriate, variously including the following: *Automated exposure control *Adjustment of mA and/or kV according to patient size (this includes techniques or standardized protocols for targeted exams where dose is matched to indication/reason for exam; i.e. extremities or head) *Use of iterative reconstruction technique DLP: 1034 mGy-cm FINDINGS: LUNG BASES: The visualized lung bases are unremarkable. LIVER, GALLBLADDER, AND BILIARY TREE: The liver is normal in size, shape, and attenuation. No focal hepatic lesion or biliary ductal dilatation is present. The gallbladder is unremarkable with no evidence of radiopaque gallstones, gallbladder wall thickening, or obvious pericholecystic inflammatory changes. PANCREAS: Unremarkable. SPLEEN: Unremarkable. ADRENAL GLANDS: Unremarkable. KIDNEYS AND URETERS: The kidneys are normal in size, shape, and attenuation. No hydronephrosis, hydroureter, or calculi seen. No perinephric stranding. BLADDER: Unremarkable. GASTROINTESTINAL TRACT: The small and large bowel are unremarkable. The appendix is unremarkable. ABDOMINAL WALL: No significant hernia is appreciated. Tiny femoral hernias are seen containing only fat. A tiny periumbilical hernia is seen containing only fat. LYMPH NODES: No retroperitoneal lymphadenopathy present. VASCULAR: Unremarkable. PELVIC VISCERA: An anteverted uterus is present. Normal ovaries are seen bilaterally. An abnormal adnexal mass or free intraperitoneal fluid is not seen. OSSEOUS STRUCTURES: Unremarkable. CT/CT abdomen pelvis wo con IMPRESSION: A cause for the patient's lower abdominal pain has not been found. The appendix is normal. Other incidental findings as described above.
[2021-02-04 15:20] VITALS: BP 120/82; PULSE 102; RESP 18; TEMP 36.7; O2SAT 99; BMI 50.8
--- NOTE | 2021-02-04 17:30 | ED.FEMALEGU ---
HPI - Female Genitourinary General Chief complaint: Abdominal Pain Stated complaint: PELVIC AND ABD PAIN Time Seen by Provider: 02/04/21 17:30 Source: patient Mode of arrival: ambulatory Limitations: no limitations History of Present Illness MD elicited complaint: dysuria, UTI , pelvic pain and urinary incontinence Onset (ago): week(s) (2) Location of symptoms: suprapubic Severity: moderate Quality of pain: cramping Consistency: constant Vaginal discharge: none Vaginal bleeding: none Urinary symptoms: Dysuria, Urgency, Frequency and Foul Smelling Urine Exacerbating factors: urination Relieving factors: none Associated symptoms: abdominal pain Treatment prior to arrival: none Sexual activity: No Patient : No Related Data Home Medications Medication Instructions Recorded Confirmed sumatriptan succinate 1 tab PO NEEDED PRN 11/05/20 12/10/20 omeprazole 20 mg PO DAILY 11/29/20 12/24/20 acetaminophen 650 mg PO Q6H PRN 12/10/20 12/24/20 albuterol sulfate [ProAir HFA] 2 puff INHALATION Q6-8H PRN 12/10/20 12/24/20 hydroxyzine pamoate 1 cap PO BID PRN 12/10/20 12/10/20 ibuprofen 600 mg PO Q8H PRN 12/10/20 12/24/20 mirtazapine 1 tab PO BEDTIME 12/10/20 12/24/20 nicotine 1 patch TRANSDERMAL DAILY 12/10/20 12/24/20 amoxicillin 1 cap PO TID 12/24/20 12/24/20 cetirizine 10 mg PO DAILY 12/24/20 12/24/20 fluticasone propionate 1 spray INTRANASAL BID 12/24/20 12/24/20 fluticasone propionate [Flovent 2 puff INHALATION BID 12/24/20 12/24/20 HFA] hydroxyzine pamoate [Vistaril] 50 mg PO TID PRN 12/24/20 12/24/20 naproxen 1 tab PO Q8-12H PRN 12/24/20 12/24/20 topiramate 1 tab PO BID 12/24/20 12/24/20 Previous Rx's Medication Instructions Recorded chlorpromazine 100 mg PO BEDTIME #30 tab 08/19/20 duloxetine 60 mg PO DAILY 30 Days #30 cap 08/19/20 haloperidol 5 mg PO BID PRN 30 Days #60 tab 08/19/20 lithium carbonate 600 mg PO BEDTIME #30 tab 08/19/20 lorazepam 1 mg PO BEDTIME 30 Days #30 tab 08/19/20 lorazepam 1 mg PO TID PRN 30 Days #90 tab 08/19/20 prazosin 5 mg PO BEDTIME 30 Days #30 cap 08/19/20 trazodone 50 mg PO BEDTIME PRN 30 Days #30 08/19/20 tab leg brace #1 ea 11/14/20 nitrofurantoin monohyd/m-cryst 100 mg PO BID 5 Days #10 cap 02/04/21 [Macrobid] ondansetron 4 mg PO Q8H PRN #20 tab 02/04/21 phenazopyridine [Pyridium] 100 mg PO TID PRN #6 tab 02/04/21 Allergies Allergy/AdvReac Type Severity Reaction Status Date / Time carbamazepine [From TEGRETOL] AdvReac Unknown NAUSEA & Verified 11/14/20 11:53 VOMITING Review of Systems Review of Systems: Constitutional : No Weight loss, No Fever, No Chills ENT/Mouth : No sore throat, No Rhinorrhea Eyes: No Swelling, No Redness Cardiovascular : No Chest Pain, No SOB, NoEdema Respiratory : No Cough, No Sputum, No Wheezing Gastrointestinal : no Nausea, no Vomiting, no Diarrhea, positive abdominal Pain, No Hematochezia, No Melena Genitourinary : pos Dysuria, pos Urinary Frequency, No Hematuria, pos Urgency Musculoskeletal : No joint pain, No Myalgias, No Joint Swelling Skin : No Skin Lesions, No rash Neuro : No Weakness, No Numbness, No Dizziness, No Headache Psych : No Anxiety/Panic, No Depression Heme/Lymph: No Bruising, No Lymphadenopathy Endocrine : No Polyuria, No Polydipsia All other systems reviewed and are negative. [facility] Past Medical History Attestation statement: The following information was validated with the patient. Medical History Adjustment disorder Anxiety Asthma Borderline personality disorder COPD (chronic obstructive pulmonary disease) Depression GERD (gastroesophageal reflux disease) Increased BMI Injury, self-inflicted Intentional self-harm PTSD (post-traumatic stress disorder) Recurrent major depression-severe Schizoaffective disorder Self-harming behavior Suicidal ideation Suicidal ideation Social History Social History Household Members: Other Household Members Other:: assisted Housing: House Do you presently have visiting nurse or other home services: No Alcohol intake: unknown Cigarette Packs Per Day: 0.5 Cigarettes Per Day: 1 Years Smoked: 10 Second Hand Smoke Exposure: No Substance Use Type: Marijuana Advance Directives: No Advance Directives Information Provided: Yes Patient : No service: No Physical Exam Vital Signs: Vital Signs: Last Vital Signs Temp 98.2 F 02/04/21 18:15 Pulse 89 02/04/21 18:15 Resp 18 02/04/21 18:15 BP 122/70 02/04/21 18:15 Pulse Ox 100 02/04/21 18:15 Body Mass Index 50.8 Appearance: Alert. Oriented X3. No acute distress. Eyes: Pupils equal, round and reactive to light. ENT: Pharynx normal. Neck: Normal inspection. Neck supple. CVS: Normal heart rate and rhythm. Pulses normal. Respiratory: No respiratory distress. Breath sounds normal. Abdomen: Soft and non-tender. : with Javon WOOD present - normal external examno mass/rash noted Skin: Skin warm and dry. Normal skin color. Normal skin turgor. Extremities: No lower extremity edema. No calf ttp Neuro: Oriented X 3. No motor deficit. No sensory deficit. Course Course Course Narrative: no acute findings at this time stable for DC MDM - Female Genitourinary MDM Narrative Medical decision making narrative: 35 yo female with GERD, PTSD, significant mental illness comes in with c/o abnormal pap smear 3 weeks ago with her OBGYN (plan for biopsy) at this time the patient c/o suprapubic pain, urinary frequency, incontinence at times because she states she is urinating every 5 minutes at this time will need labs, UA, CT scan for appendicitis/stone, valium and pyridium will have her self swab given her extensive history and PTSD for her own comfort, no rash or mass seen in external exam Lab Data Result diagrams: 02/04/21 18:03 02/04/21 18:03 Labs: Lab Results 02/04/21 02/04/21 02/04/21 Range/Units 18:03 18:03 18:29 WBC 8.1 (4.8-10.8) X10*3/uL RBC 3.83 L (4.20-5.50) X10*6/uL Hgb 9.6 L (12.0-16.0) g/dl Hct 31.0 L (37-47) % MCV 80.9 (80-98) fL MCH 25.1 L (27.0-33.0) pg MCHC 31.0 (31.0-35.0) g/dl RDW 16.7 H (11.0-16.0) % Plt Count 318 (160-400) X10*3/uL MPV 10.5 (9.4-12.3) fL Immature Gran % (Auto) 0.6 H (0.0-0.4) % Neut % (Auto) 60.7 (45-73) % Lymph % (Auto) 31.4 (20-40) % [place] % (Auto) 7.1 (2-11) % Eos % (Auto) 0.1 (0-4) % Baso % (Auto) 0.1 (0-2) % Lymph # (Auto) 2.5 (1.2-4.9) X10*3/uL [place] # (Auto) 0.6 (0.1-1.2) X10*3/uL Eos # (Auto) 0.0 (0.0-0.4) X10*3/uL Baso # (Auto) 0.0 (0.0-0.2) X10*3/uL Abs Immat Gran (auto) 0.05 H (0.00-0.03) X10*3/uL Absolute Neuts (auto) 4.9 (2.0-8.3) X10*3/uL Absolute Nucleated RBC 0.000 (0.0-0.012) X10*3/uL Nucleated RBC % (auto) 0.0 (0.0-0.2) /100WBC Sodium 138 (135-145) mmol/L Potassium 3.9 (3.3-5.1) mmol/L Chloride 108 (96-108) mmol/L Carbon Dioxide 24 (22-29) mmol/L Anion Gap 10 L (12-20) BUN 7 L (9-16) mg/dL Creatinine 0.77 (0.5-1.4) mg/dL Estim Creat Clear Calc 121.0 Estimated GFR > 60 Random Glucose 87 (60-115) mg/dL Calcium 9.1 (8.4-10.2) mg/dL Magnesium 2.0 (1.6-2.6) mg/dL Total Bilirubin 0.2 (0.0-1.0) mg/dL Direct Bilirubin < 0.2 (0.0-0.5) mg/dL AST 13 (5-31) U/L ALT 11 (0-31) U/L Alkaline Phosphatase 76 D (39-117) U/L Total Protein 6.4 L (6.5-8.0) g/dL Albumin 4.0 (3.5-5.0) g/dL Lipase 28 (8-78) U/L Urine Color YELLOW Urine Appearance CLEAR Urine pH 7.5 (5.0-8.0) Ur Specific [place] 1.010 (1.005-1.025) Urine Protein NEG (NEG-TRACE) MG/DL Urine Glucose (UA) NEG (NEG) MG/DL Urine Ketones NEG (NEG) MG/DL Urine Blood NEG (NEG) Urine Nitrite NEG (NEG) Ur Leukocyte Esterase NEG (NEG) Urine Test (NEGATIVE) 02/04/21 Range/Units 18:29 WBC (4.8-10.8) X10*3/uL RBC (4.20-5.50) X10*6/uL Hgb (12.0-16.0) g/dl Hct (37-47) % MCV (80-98) fL MCH (27.0-33.0) pg MCHC (31.0-35.0) g/dl RDW (11.0-16.0) % Plt Count (160-400) X10*3/uL MPV (9.4-12.3) fL Immature Gran % (Auto) (0.0-0.4) % Neut % (Auto) (45-73) % Lymph % (Auto) (20-40) % [place] % (Auto) (2-11) % Eos % (Auto) (0-4) % Baso % (Auto) (0-2) % Lymph # (Auto) (1.2-4.9) X10*3/uL [place] # (Auto) (0.1-1.2) X10*3/uL Eos # (Auto) (0.0-0.4) X10*3/uL Baso # (Auto) (0.0-0.2) X10*3/uL Abs Immat Gran (auto) (0.00-0.03) X10*3/uL Absolute Neuts (auto) (2.0-8.3) X10*3/uL Absolute Nucleated RBC (0.0-0.012) X10*3/uL Nucleated RBC % (auto) (0.0-0.2) /100WBC Sodium (135-145) mmol/L Potassium (3.3-5.1) mmol/L Chloride (96-108) mmol/L Carbon Dioxide (22-29) mmol/L Anion Gap (12-20) BUN (9-16) mg/dL Creatinine (0.5-1.4) mg/dL Estim Creat Clear Calc Estimated GFR Random Glucose (60-115) mg/dL Calcium (8.4-10.2) mg/dL Magnesium (1.6-2.6) mg/dL Total Bilirubin (0.0-1.0) mg/dL Direct Bilirubin (0.0-0.5) mg/dL AST (5-31) U/L ALT (0-31) U/L Alkaline Phosphatase (39-117) U/L Total Protein (6.5-8.0) g/dL Albumin (3.5-5.0) g/dL Lipase (8-78) U/L Urine Color Urine Appearance Urine pH (5.0-8.0) Ur Specific [place] (1.005-1.025) Urine Protein (NEG-TRACE) MG/DL Urine Glucose (UA) (NEG) MG/DL Urine Ketones (NEG) MG/DL Urine Blood (NEG) Urine Nitrite (NEG) Ur Leukocyte Esterase (NEG) Urine Test NEGATIVE (NEGATIVE) Discharge Plan Discharge Clinical Impression: Pelvic pain, Cystitis Patient Disposition: Home, Self-Care Instructions: Pelvic Pain (ED) Additional Instructions: return to ED for any worsening symptoms or concerns Prescriptions: New ondansetron 4 mg tablet,disintegrating 4 mg PO Q8H PRN (Reason: nausea and vomiting) Qty: 20 RF: 0 nitrofurantoin monohyd/m-cryst [Macrobid] 100 mg capsule 100 mg PO BID 5 Days Qty: 10 RF: 0 phenazopyridine [Pyridium] 100 mg tablet 100 mg PO TID PRN (Reason: pain) Qty: 6 RF: 0 No Action sumatriptan succinate 50 mg tablet 1 tab PO NEEDED PRN (Reason: Migraine Headache) RF: 0 omeprazole 20 mg capsule,delayed release(DR/EC) 20 mg PO DAILY RF: 0 chlorpromazine 100 mg Tablet 100 mg PO BEDTIME Qty: 30 RF: 0 lorazepam 1 mg Tablet 1 mg PO BEDTIME 30 Days Qty: 30 RF: 0 lorazepam 1 mg Tablet 1 mg PO TID PRN (Reason: Anxiety/Restlessness ) 30 Days Qty: 90 RF: 0 trazodone 50 mg Tablet 50 mg PO BEDTIME PRN (Reason: Insomnia) 30 Days Qty: 30 RF: 0 lithium carbonate 300 mg Tablet Extended Release 600 mg PO BEDTIME Qty: 30 RF: 0 prazosin 5 mg Capsule 5 mg PO BEDTIME 30 Days Qty: 30 RF: 0 duloxetine 60 mg Capsule,Delayed Release(Dr/Ec) 60 mg PO DAILY 30 Days Qty: 30 RF: 0 haloperidol 5 mg Tablet 5 mg PO BID PRN (Reason: psychosis) 30 Days Qty: 60 RF: 0 hydroxyzine pamoate 50 mg capsule 1 cap PO BID PRN (Reason: Anxiety) RF: 0 mirtazapine 15 mg tablet 1 tab PO BEDTIME RF: 0 albuterol sulfate [ProAir HFA] 90 mcg/actuation HFA aerosol inhaler 2 puff inhalation Q6-8H PRN (Reason: Wheezing) RF: 0 acetaminophen 500 mg Tablet 650 mg PO Q6H PRN (Reason: Pain) RF: 0 nicotine 21 mg/24 hr Patch 24 Hour 1 patch TRANSDERMAL DAILY RF: 0 ibuprofen 600 mg Tablet 600 mg PO Q8H PRN (Reason: Pain) RF: 0 hydroxyzine pamoate [Vistaril] 50 mg capsule 50 mg PO TID PRN (Reason: Anxiety) RF: 0 cetirizine 10 mg Tablet 10 mg PO DAILY RF: 0 fluticasone propionate 50 mcg/actuation spray,suspension 1 spray intranasal BID RF: 0 naproxen 500 mg tablet 1 tab PO Q8-12H PRN (Reason: Toothache) RF: 0 amoxicillin 500 mg capsule 1 cap PO TID RF: 0 topiramate 25 mg tablet 1 tab PO BID RF: 0 Flovent HFA 110 mcg/actuation HFA aerosol inhaler 2 puff inhalation BID RF: 0 (DME) leg brace Misc See Rx Instructions miscellaneous .MEDSUPPLY Qty: 1 RF: 0
[2021-02-04 18:12] LABS: MANUAL DIFF FLAG NO
[2021-02-04 18:15] VITALS: BP 122/70; PULSE 89; RESP 18; TEMP 36.8; O2SAT 100
[2021-02-04 18:16] LABS: Basophils Percent Auto 0.1 % (0-2); Eosinophils Percent Auto 0.1 % (0-4); Hemoglobin 9.6 g/dl (12.0-16.0); Imm Gran Abs Auto 0.05 X10*3/uL (0.00-0.03); Imm Gran Pct Auto 0.6 % (0.0-0.4); Lymphocytes Absolute Auto 2.5 X10*3/uL (1.2-4.9); Lymphocytes Percent Auto 31.4 % (20-40); Mean Corpuscular Hemoglobin 25.1 pg (27.0-33.0); Mean Corpuscular Volume 80.9 fL (80-98); Mean Platelet Volume 10.5 fL (9.4-12.3); Monocytes Absolute Auto 0.6 X10*3/uL (0.1-1.2); Monocytes Percent Auto 7.1 % (2-11); Neutrophils Absolute Auto 4.9 X10*3/uL (2.0-8.3); Neutrophils Percent Auto 60.7 % (45-73); Platelet Count 318 X10*3/uL (160-400); Red Blood Count 3.83 X10*6/uL (4.20-5.50); Red Cell Distribution Width 16.7 % (11.0-16.0); White Blood Count 8.1 X10*3/uL (4.8-10.8)
[2021-02-04] MEDS: diazePAM 5 MG TABLET PO (18:28)
[2021-02-04] MEDS: Phenazopyridine HCL 200 MG TABLET PO (18:28)
[2021-02-04 18:36] LABS: Alanine Aminotransferase 11 U/L (0-31); Alkaline Phosphatase 76 U/L (39-117); Anion Gap 10 (12-20); Aspartate Amino Transferase 13 U/L (5-31); Bilirubin Direct < 0.2 mg/dL (0.0-0.5); Bilirubin Total 0.2 mg/dL (0.0-1.0); Blood Urea Nitrogen 7 mg/dL (9-16); Calcium 9.1 mg/dL (8.4-10.2); Carbon Dioxide 24 mmol/L (22-29); Chloride 108 mmol/L (96-108); Estimated Glomerular Filt Rate > 60; Glucose Random 87 mg/dL (60-115); Lipase 28 U/L (8-78); Potassium 3.9 mmol/L (3.3-5.1); Sodium 138 mmol/L (135-145); Total Protein 6.4 g/dL (6.5-8.0)
[2021-02-04 18:37] LABS: Glucose Urine UA NEG (NEG); Leukocyte Esterase Urine NEG (NEG); Nitrite Urine NEG (NEG); PH 7.5 (5.0-8.0); Urine Blood NEG (NEG); Urine Ketones NEG (NEG); Urine Protein NEG (NEG-TRACE)
[2021-02-04 18:40] LABS: Appearance Urine CLEAR; Color Urine YELLOW; UPreg QC Valid YES; Urine Pregnancy NEGATIVE (NEGATIVE)
--- NOTE | 2021-02-04 19:11 | PC.NURSE ---
ASSUMED CARE OF PT. PT RETURNS FROM CT IN STRETCHER IN NAD. WILL CONTINUE TO MONITOR PT.
[2021-02-04] MEDS: Acetaminophen 325 MG TABLET 650 MG PO (19:24)
--- NOTE | 2021-02-04 19:27 | PC.NURSE ---
pt c/o lower abd pain and medicated as per emar for pain and nausea.
[2021-02-04] MEDS: Heparin Sodium,Porcine Flush 50 UNITS/5 ML SYRINGE IVFLUSH (20:45)
[2021-02-05 01:49] LABS: CT PCR NOT DETECTED (Not Detect.); NG PCR NOT DETECTED (Not Detect.)
[2021-02-05 09:37] LABS: BV Int Neg Control Negative (Negative); BV Int Pos Control Positive (Positive)
== END 2021-02-04 20:59 | disposition home or self-care (01) ==
PROVIDERS: Emergency Provider Emergency Medicine
DX: N30.90 Cystitis, unspecified without hematuria (principal)
CPT/HCPCS: 36415; 74176; 80048; 80076; 81003; 81025; 83690; 83735; 85025; 87480; 87491; 87510; 87591; 87660; 99284; J1642

== ENCOUNTER 2021-02-14 06:00 | Day surgery (SDC) | payer OTHER, SELFPAY ==
--- NOTE | 2021-02-13 16:18 | P.CONAN_ITS ---
HPI - Anesthesia Eval Consult details Narrative: 35 yo female patient for ECT PMFSH Active Problems Active Problems: All Active Problems (Updated 02/05/21 @ 00:01 by Adiel Sevilla) Sprain of anterior cruciate ligament of right knee (Acute) Self-inflicted injury (Acute) Lacerations of multiple sites of right arm (Acute) Injury of ligament of right knee (Acute) Acute post-traumatic stress disorder (Chronic) Increased BMI (Acute) GERD (gastroesophageal reflux disease) (Acute) Recurrent major depression-severe (Acute) Borderline personality disorder (Acute) Past Medical History Medical History Adjustment disorder Anxiety Asthma Borderline personality disorder COPD (chronic obstructive pulmonary disease) Depression GERD (gastroesophageal reflux disease) Increased BMI Injury, self-inflicted Intentional self-harm PTSD (post-traumatic stress disorder) Recurrent major depression-severe Schizoaffective disorder Self-harming behavior Suicidal ideation Suicidal ideation Family History Family history of problems with anesthesia: No Surgical History History of Problems with Anesthesia: No Social History Social History Household Members: Other Household Members Other:: half-way Housing: House Do you presently have visiting nurse or other home services: No Alcohol intake: unknown Cigarette Packs Per Day: 0.5 Cigarettes Per Day: 1 Years Smoked: 10 Second Hand Smoke Exposure: No Substance Use Type: Marijuana Are you DNR?: No Advance Directives: No Advance Directives Information Provided: Yes service: No Meds Allergies Allergy/AdvReac Type Severity Reaction Status Date / Time carbamazepine [From TEGRETOL] AdvReac Unknown NAUSEA & Verified 11/14/20 11:53 VOMITING Home Medications Medication Instructions Recorded Confirmed Last Taken Type sumatriptan succinate 1 tab PO NEEDED PRN 11/05/20 12/10/20 Unknown History omeprazole 20 mg PO DAILY 11/29/20 12/24/20 12/24/20 08:00 History acetaminophen 650 mg PO Q6H PRN 12/10/20 12/24/20 Unknown History albuterol sulfate [ProAir HFA] 2 puff INHALATION Q6-8H PRN 12/10/20 12/24/20 Unknown History hydroxyzine pamoate 1 cap PO BID PRN 12/10/20 12/10/20 Unknown History ibuprofen 600 mg PO Q8H PRN 12/10/20 12/24/20 Unknown History mirtazapine 1 tab PO BEDTIME 12/10/20 12/24/20 12/23/20 20:00 History nicotine 1 patch TRANSDERMAL DAILY 12/10/20 12/24/20 Unknown History amoxicillin 1 cap PO TID 12/24/20 12/24/20 12/24/20 08:00 History 2 doses left! cetirizine 10 mg PO DAILY 12/24/20 12/24/20 12/23/20 09:00 History fluticasone propionate 1 spray INTRANASAL BID 12/24/20 12/24/20 12/24/20 09:00 History fluticasone propionate [Flovent 2 puff INHALATION BID 12/24/20 12/24/20 12/24/20 08:00 History HFA] hydroxyzine pamoate [Vistaril] 50 mg PO TID PRN 12/24/20 12/24/20 Unknown History naproxen 1 tab PO Q8-12H PRN 12/24/20 12/24/20 12/24/20 08:00 History topiramate 1 tab PO BID 12/24/20 12/24/20 12/24/20 08:00 History Exam Exam Date and Time: February 13, 2021 1618 Height,Weight and Vital Signs: BP 139/92 HR 98 Sp02 98 RR 17 Airway Mallampati Class: II TM Dist: >3cm Neck ROM: Full Loose/Missing/Broken Teeth: Yes (Missing) Heart: RRR Lungs: CTAB Assessment and Plan Assessment Anesthesia Assessment: Anesthesia Plan Discussed and Chart Reviewed Final Anesthetic Review NPO: Yes ASA Class: III and Emergency Final Preanesthetic Review: No Changes in Pt Med Stat, Meds/Allgs Chart Reviewed, Consent Obtained/Reviewed and Anes Risks/Benef Reviewed Patient Risk: Intermediate Procedure Risk: Intermediate Assessment/Block/Sedation in SS: Assess/Block/Sedation-SS Anesthetic Plan Anesthetic Plan: GA Disposition: Standard PACU
[2021-02-14 06:29] VITALS: BMI 54.5
--- NOTE | 2021-02-14 07:11 | MHC.SHP ---
Pre-Procedural Eval Section A Date of Service: 02/14/21 The patient is an INPATIENT: No Changes since office visit: Yes Patient answered all questions; No Cold of Flu in the past 2 weeks, No New Medical Problems and No Changes in Medication The History & Physical has been completed within 30 days and I have reviewed it.: Yes Section B Chief Complaint: depression Allergies: Allergies Allergy/AdvReac Type Severity Reaction Status Date / Time carbamazepine [From TEGRETOL] AdvReac Unknown NAUSEA & Verified 11/14/20 11:53 VOMITING Plan I have reviewed the history and physical and performed a pertinent physical examination on my patient. No changes have occurred unless specified.
--- NOTE | 2021-02-14 07:12 | HO.ECTPROC ---
ECT Procedure Note Diagnosis/Treatment Date of Service: 02/14/21 Diagnosis: Major Depressive Disorder Treatment: Maintenance Interval Clinical Notes: pt has been anxious agitated feeling overwhelmed pre ect worried about nephew ECT Settings Device: THYMATRON DGx Program/Pulse Width: 0.50 Energy Percent: 100 Seizure Duration By EEG (in seconds): 23 Medications Administration General Anesthetic: Etomidate (12) Muscle Relaxant: Succinylcholine (100) Ancillary Medications Analgesics: Torodol - Pre ECT Anti-emetics: Zofran - Pre ECT Miscillaneous Medications: Propofol (20 mg) Airway Management Airway Management: Bag Mask Ventilation Treatment Recommendations No Changes Recommended: No change Notes: post ect became agitated unususal for pt reevaluate post ect after propofol will consider crisis eval f/u tx 2 weeks
[2021-02-14 07:36] VITALS: BP 125/86; PULSE 94; RESP 23; TEMP 37.1; O2SAT 95
[2021-02-14 07:41] VITALS: BP 127/84; PULSE 86; RESP 17; O2SAT 96
[2021-02-14 07:46] VITALS: BP 129/76; PULSE 91; RESP 20; O2SAT 98
[2021-02-14 07:51] VITALS: BP 121/81; PULSE 90; RESP 17; O2SAT 97
[2021-02-14 08:06] VITALS: BP 135/81; PULSE 84; RESP 19; TEMP 37.1; O2SAT 96
== END 2021-02-14 08:28 | disposition home or self-care (01) ==
PROVIDERS: Visit Provider Psychiatry & Neurology Psychiatry
PROC: (CPT 90870; principal; 2021-02-14 07:30)
DX: F33.2 Major depressive disorder, recurrent severe without psychotic features (principal); F41.8 Other specified anxiety disorders; F43.10 Post-traumatic stress disorder, unspecified; F25.9 Schizoaffective disorder, unspecified; F60.3 Borderline personality disorder; R45.851 Suicidal ideations; J44.9 Chronic obstructive pulmonary disease, unspecified; Z91.5 Personal history of self-harm; F17.210 Nicotine dependence, cigarettes, uncomplicated; F12.90 Cannabis use, unspecified, uncomplicated; Z79.899 Other long term (current) drug therapy; Z79.51 Long term (current) use of inhaled steroids; Z88.8 Allergy status to other drugs, medicaments and biological substances
CPT/HCPCS: 90870; J0330; J1642; J1885; J2250; J2405

== ENCOUNTER 2021-02-15 18:04 | Emergency (ER) | payer OTHER, SELFPAY ==
[2021-02-15 18:13] VITALS: BP 141/88; PULSE 102; RESP 18; TEMP 36.8; O2SAT 98; BMI 54.5
--- NOTE | 2021-02-15 18:44 | ED_ITS ---
HPI - Psych General Chief Complaint: Psychiatric Symptoms Stated Complaint: crisis Time Seen by Provider: 02/15/21 19:30 Source: patient Mode of arrival: ambulatory Limitations: no limitations History of Present Illness HPI Narrative: 35-year-old female with significant psychiatric history, borderline personality disorder, recurrent major depression severe, schizoaffective disorder, COPD, asthma, GERD, significant history of self- inflicted injuries presents with suicidal ideation, self inflicted lacerations t o the left forearm, and severe depression. Patient states that she cannot function. Did not report any physical concerns at this time. MD complaint: suicidal ideation, feels depressed, anxiety and hallucinations Onset (ago): unknown Duration: constant History of same: Yes Context: significant life stressor Associated psychiatric symptoms: depression, suicidal ideation, racing thoughts, auditory hallucinations, visual hallucinations and delusions Associated symptoms: denies other symptoms Treatments prior to arrival: none If self harm: admits thoughts of self harm and self-inflicted trauma Related Data Home Medications Medication Instructions Recorded Confirmed sumatriptan succinate 1 tab PO NEEDED PRN 11/05/20 02/15/21 omeprazole 20 mg PO DAILY 11/29/20 02/15/21 acetaminophen 650 mg PO Q6H PRN 12/10/20 02/15/21 albuterol sulfate [ProAir HFA] 2 puff INHALATION Q6-8H PRN 12/10/20 02/15/21 ibuprofen 600 mg PO Q8H PRN 12/10/20 02/15/21 mirtazapine 1 tab PO BEDTIME 12/10/20 02/15/21 nicotine 1 patch TRANSDERMAL DAILY 12/10/20 02/15/21 cetirizine 10 mg PO DAILY 12/24/20 02/15/21 fluticasone propionate 1 spray INTRANASAL BID 12/24/20 02/15/21 fluticasone propionate [Flovent 2 puff INHALATION BID 12/24/20 02/15/21 HFA] hydroxyzine pamoate [Vistaril] 50 mg PO TID PRN 12/24/20 02/15/21 naproxen 1 tab PO Q8-12H PRN 12/24/20 02/15/21 topiramate 1 tab PO BID 12/24/20 02/15/21 haloperidol decanoate 50 mg IM Q4W 02/15/21 02/15/21 Previous Rx's Medication Instructions Recorded chlorpromazine 100 mg PO BEDTIME #30 tab 08/19/20 duloxetine 60 mg PO DAILY 30 Days #30 cap 08/19/20 haloperidol 5 mg PO BID PRN 30 Days #60 tab 08/19/20 lithium carbonate 600 mg PO BEDTIME #30 tab 08/19/20 lorazepam 1 mg PO BEDTIME 30 Days #30 tab 08/19/20 lorazepam 1 mg PO TID PRN 30 Days #90 tab 08/19/20 prazosin 5 mg PO BEDTIME 30 Days #30 cap 08/19/20 trazodone 50 mg PO BEDTIME PRN 30 Days #30 08/19/20 tab leg brace #1 ea 11/14/20 ondansetron 4 mg PO Q8H PRN #20 tab 02/04/21 Allergies Allergy/AdvReac Type Severity Reaction Status Date / Time carbamazepine [From TEGRETOL] AdvReac Unknown NAUSEA & Verified 02/15/21 18:13 VOMITING Review of Systems Review of Systems: Constitutional: No Fever, No Chills ENT/Mouth: No Ear Pain, No Nasal Congestion, No sore throat Eyes: No Eye Pain, No Swelling, No Redness Cardiovascular: No Chest Pain, No SOB Respiratory: No Cough, No Sputum, No Dyspnea Gastrointestinal: No Nausea, No Vomiting, No Diarrhea, No Hematochezia, No Melena Genitourinary: No Dysuria, No Urinary Frequency, No Hematuria Musculoskeletal: No Myalgias Skin: No Skin Lesions, No rash Neuro: No Weakness, No Numbness, No Paresthesias, No Dizziness, No Headache Psych: positive Anxiety, positive Depression, positive SI , positive self- inflicted lacerations to the left forearm Heme/Lymph: No Lymphadenopathy Endocrine: No Polyuria, No Polydipsia Yes all other systems are reviewed and are negative [facility] Past Medical History Attestation statement: The following information was validated with the patient. Source: old records reviewed Medical History Adjustment disorder Anxiety Asthma Borderline personality disorder COPD (chronic obstructive pulmonary disease) Depression GERD (gastroesophageal reflux disease) Increased BMI Injury, self-inflicted Intentional self-harm PTSD (post-traumatic stress disorder) Recurrent major depression-severe Schizoaffective disorder Self-harming behavior Suicidal ideation Suicidal ideation Social History Social History Household Members: Other Household Members Other:: nursing home Housing: House Do you presently have visiting nurse or other home services: No Alcohol intake: unknown Cigarette Packs Per Day: 0.5 Cigarettes Per Day: 1 Years Smoked: 10 Second Hand Smoke Exposure: No Substance Use Type: Marijuana Advance Directives: No Advance Directives Information Provided: Yes Patient : No service: No Physical Exam Vital Signs: Vital Signs: Last Vital Signs Temp 98.3 F 02/15/21 18:13 Pulse 102 H 02/15/21 18:13 Resp 18 02/15/21 18:13 BP 141/88 H 02/15/21 18:13 Pulse Ox 98 02/15/21 18:13 Body Mass Index 54.5 Appearance: Alert. Oriented X3. No acute distress. Eyes: Pupils equal, round and reactive to light. ENT: Pharynx normal. Neck: Normal inspection. Neck supple. CVS: Normal heart rate and rhythm. Pulses normal. Respiratory: No respiratory distress. Breath sounds normal. Abdomen: Soft and nontender. Skin: multiple superficial lacerations to left forearm, otherwise Skin warm and dry. Normal skin color. Normal skin turgor. Extremities: No lower extremity edema. Neuro: No motor deficit. No sensory deficit. Course Course Course Narrative: 35-year-old female presents with self-inflicted injuries, suicidal ideation, and inability to function. Will order psych consult, [facility] co nsult, labs. Patient is well-known to this facility. MDM - Psych Differential Diagnosis Differential diagnosis: Likely acute psychosis, suicidal ideation, bipolar disorder, depression, post-traumatic stress disorder and schizoaffective disorder Medical Records Attestation: I reviewed the patient's medical records. Lab Data Attestation: I reviewed the patient's lab results. Result diagrams: 02/15/21 19:53 02/15/21 19:53 Labs: Lab Results 02/15/21 02/15/21 02/15/21 Range/Units 19:53 19:53 19:53 WBC 11.9 H (4.8-10.8) X10*3/uL RBC 3.71 L (4.20-5.50) X10*6/uL Hgb 9.3 L (12.0-16.0) g/dl Hct 30.3 L (37-47) % MCV 81.7 (80-98) fL MCH 25.1 L (27.0-33.0) pg MCHC 30.7 L (31.0-35.0) g/dl RDW 16.9 H (11.0-16.0) % Plt Count 336 (160-400) X10*3/uL MPV 10.2 (9.4-12.3) fL Immature Gran % (Auto) 0.4 (0.0-0.4) % Neut % (Auto) 72.5 (45-73) % Lymph % (Auto) 21.8 (20-40) % [place] % (Auto) 5.2 (2-11) % Eos % (Auto) 0.0 (0-4) % Baso % (Auto) 0.1 (0-2) % Lymph # (Auto) 2.6 (1.2-4.9) X10*3/uL [place] # (Auto) 0.6 (0.1-1.2) X10*3/uL Eos # (Auto) 0.0 (0.0-0.4) X10*3/uL Baso # (Auto) 0.0 (0.0-0.2) X10*3/uL Abs Immat Gran (auto) 0.05 H (0.00-0.03) X10*3/uL Absolute Neuts (auto) 8.6 H (2.0-8.3) X10*3/uL Absolute Nucleated RBC 0.000 (0.0-0.012) X10*3/uL Nucleated RBC % (auto) 0.0 (0.0-0.2) /100WBC Sodium 138 (135-145) mmol/L Potassium 4.2 (3.3-5.1) mmol/L Chloride 110 H (96-108) mmol/L Carbon Dioxide 18 L (22-29) mmol/L Anion Gap 14 (12-20) BUN 7 L (9-16) mg/dL Creatinine 0.85 (0.5-1.4) mg/dL Estim Creat Clear Calc 110.2 Estimated GFR > 60 Random Glucose 98 (60-115) mg/dL Calcium 9.3 (8.4-10.2) mg/dL Total Bilirubin 0.2 (0.0-1.0) mg/dL AST 14 (5-31) U/L ALT 12 (0-31) U/L Alkaline Phosphatase 76 (39-117) U/L Total Protein 6.5 (6.5-8.0) g/dL Albumin 4.0 (3.5-5.0) g/dL Urine Opiates Screen Not Detected (Not Detect) Ur Barbiturates Screen Not Detected (Not Detect) Ur Phencyclidine Scrn Not Detected (Not Detect) Ur Amphetamines Screen Not Detected (Not Detect) U Benzodiazepines Scrn Not Detected (Not Detect) Urine Cocaine Screen Not Detected (Not Detect) U Marijuana (THC) Screen POSITIVE H (Not Detect) Ethyl Alcohol mg/dL 02/15/21 Range/Units 19:53 WBC (4.8-10.8) X10*3/uL RBC (4.20-5.50) X10*6/uL Hgb (12.0-16.0) g/dl Hct (37-47) % MCV (80-98) fL MCH (27.0-33.0) pg MCHC (31.0-35.0) g/dl RDW (11.0-16.0) % Plt Count (160-400) X10*3/uL MPV (9.4-12.3) fL Immature Gran % (Auto) (0.0-0.4) % Neut % (Auto) (45-73) % Lymph % (Auto) (20-40) % [place] % (Auto) (2-11) % Eos % (Auto) (0-4) % Baso % (Auto) (0-2) % Lymph # (Auto) (1.2-4.9) X10*3/uL [place] # (Auto) (0.1-1.2) X10*3/uL Eos # (Auto) (0.0-0.4) X10*3/uL Baso # (Auto) (0.0-0.2) X10*3/uL Abs Immat Gran (auto) (0.00-0.03) X10*3/uL Absolute Neuts (auto) (2.0-8.3) X10*3/uL Absolute Nucleated RBC (0.0-0.012) X10*3/uL Nucleated RBC % (auto) (0.0-0.2) /100WBC Sodium (135-145) mmol/L Potassium (3.3-5.1) mmol/L Chloride (96-108) mmol/L Carbon Dioxide (22-29) mmol/L Anion Gap (12-20) BUN (9-16) mg/dL Creatinine (0.5-1.4) mg/dL Estim Creat Clear Calc Estimated GFR Random Glucose (60-115) mg/dL Calcium (8.4-10.2) mg/dL Total Bilirubin (0.0-1.0) mg/dL AST (5-31) U/L ALT (0-31) U/L Alkaline Phosphatase (39-117) U/L Total Protein (6.5-8.0) g/dL Albumin (3.5-5.0) g/dL Urine Opiates Screen (Not Detect) Ur Barbiturates Screen (Not Detect) Ur Phencyclidine Scrn (Not Detect) Ur Amphetamines Screen (Not Detect) U Benzodiazepines Scrn (Not Detect) Urine Cocaine Screen (Not Detect) U Marijuana (THC) Screen (Not Detect) Ethyl Alcohol < 10 mg/dL Discharge Plan Discharge Clinical Impression: Borderline personality disorder, Acute post-traumatic stress disorder, Self- inflicted injury, Suicidal ideation Recurrent major depression-severe Qualifiers: Psychotic features: with psychotic features Qualified Code(s): F33.3 - Major depressive disorder, recurrent, severe with psychotic symptoms Prescriptions: No Action sumatriptan succinate 50 mg tablet 1 tab PO NEEDED PRN (Reason: Migraine Headache) RF: 0 omeprazole 20 mg capsule,delayed release(DR/EC) 20 mg PO DAILY RF: 0 ondansetron 4 mg tablet,disintegrating 4 mg PO Q8H PRN (Reason: nausea and vomiting) Qty: 20 RF: 0 chlorpromazine 100 mg Tablet 100 mg PO BEDTIME Qty: 30 RF: 0 lorazepam 1 mg Tablet 1 mg PO BEDTIME 30 Days Qty: 30 RF: 0 lorazepam 1 mg Tablet 1 mg PO TID PRN (Reason: Anxiety/Restlessness ) 30 Days Qty: 90 RF: 0 trazodone 50 mg Tablet 50 mg PO BEDTIME PRN (Reason: Insomnia) 30 Days Qty: 30 RF: 0 lithium carbonate 300 mg Tablet Extended Release 600 mg PO BEDTIME Qty: 30 RF: 0 prazosin 5 mg Capsule 5 mg PO BEDTIME 30 Days Qty: 30 RF: 0 duloxetine 60 mg Capsule,Delayed Release(Dr/Ec) 60 mg PO DAILY 30 Days Qty: 30 RF: 0 haloperidol 5 mg Tablet 5 mg PO BID PRN (Reason: psychosis) 30 Days Qty: 60 RF: 0 mirtazapine 15 mg tablet 1 tab PO BEDTIME RF: 0 albuterol sulfate [ProAir HFA] 90 mcg/actuation HFA aerosol inhaler 2 puff inhalation Q6-8H PRN (Reason: Wheezing) RF: 0 acetaminophen 500 mg Tablet 650 mg PO Q6H PRN (Reason: Pain) RF: 0 nicotine 21 mg/24 hr Patch 24 Hour 1 patch TRANSDERMAL DAILY RF: 0 ibuprofen 600 mg Tablet 600 mg PO Q8H PRN (Reason: Pain) RF: 0 hydroxyzine pamoate [Vistaril] 50 mg capsule 50 mg PO TID PRN (Reason: Anxiety) RF: 0 cetirizine 10 mg Tablet 10 mg PO DAILY RF: 0 fluticasone propionate 50 mcg/actuation spray,suspension 1 spray intranasal BID RF: 0 naproxen 500 mg tablet 1 tab PO Q8-12H PRN (Reason: Toothache) RF: 0 topiramate 25 mg tablet 1 tab PO BID RF: 0 Flovent HFA 110 mcg/actuation HFA aerosol inhaler 2 puff inhalation BID RF: 0 haloperidol decanoate 50 mg/mL solution 50 mg IM Q4W RF: 0 (DME) leg brace Misc See Rx Instructions miscellaneous .MEDSUPPLY Qty: 1 RF: 0
[2021-02-15] MEDS: 0.9 % Sodium Chloride 1,000 ML 999 ML IVCONT (19:52)
[2021-02-15 20:00] LABS: MANUAL DIFF FLAG NO
[2021-02-15 20:01] LABS: Basophils Percent Auto 0.1 % (0-2); Hematocrit 30.3 % (37-47); Hemoglobin 9.3 g/dl (12.0-16.0); Imm Gran Abs Auto 0.05 X10*3/uL (0.00-0.03); Imm Gran Pct Auto 0.4 % (0.0-0.4); Lymphocytes Absolute Auto 2.6 X10*3/uL (1.2-4.9); Lymphocytes Percent Auto 21.8 % (20-40); Mean Corpuscular HGB Conc 30.7 g/dl (31.0-35.0); Mean Corpuscular Hemoglobin 25.1 pg (27.0-33.0); Mean Corpuscular Volume 81.7 fL (80-98); Mean Platelet Volume 10.2 fL (9.4-12.3); Monocytes Absolute Auto 0.6 X10*3/uL (0.1-1.2); Monocytes Percent Auto 5.2 % (2-11); Neutrophils Absolute Auto 8.6 X10*3/uL (2.0-8.3); Neutrophils Percent Auto 72.5 % (45-73); Platelet Count 336 X10*3/uL (160-400); Red Blood Count 3.71 X10*6/uL (4.20-5.50); Red Cell Distribution Width 16.9 % (11.0-16.0); White Blood Count 11.9 X10*3/uL (4.8-10.8)
[2021-02-15 20:23] LABS: Ethanol < 10 mg/dL
[2021-02-15 20:24] LABS: Amphetamine Screen Urine Not Detected (Not Detect); Barbiturates, Urine Not Detected (Not Detect); Benzodiazepines Screen Urine Not Detected (Not Detect); Cannabinoid Screen Urine POSITIVE (Not Detect); Cocaine Screen Urine Not Detected (Not Detect); Opiate Screen Urine Not Detected (Not Detect); Phencyclidine Screen Urine Not Detected (Not Detect)
[2021-02-15 20:25] LABS: Alanine Aminotransferase 12 U/L (0-31); Alkaline Phosphatase 76 U/L (39-117); Anion Gap 14 (12-20); Aspartate Amino Transferase 14 U/L (5-31); Bilirubin Total 0.2 mg/dL (0.0-1.0); Blood Urea Nitrogen 7 mg/dL (9-16); Calcium 9.3 mg/dL (8.4-10.2); Carbon Dioxide 18 mmol/L (22-29); Chloride 110 mmol/L (96-108); Creatinine Clr Calc Pharmacy 110.2; Estimated Glomerular Filt Rate > 60; Glucose Random 98 mg/dL (60-115); Potassium 4.2 mmol/L (3.3-5.1); Sodium 138 mmol/L (135-145); Total Protein 6.5 g/dL (6.5-8.0)
--- NOTE | 2021-02-15 20:59 | PC.NURSE ---
PT HAS SITTER AT BEDSIDE FOR SAFETY OBSERVATION. PT REMAIN ALERT, RESPIRATIONS EASY, N/L. SKIN W/D. PT HAD BLANKET OVER HER HEAD AND WAS RIPPING THE MASK APART. MASKS TAKEN AWAY FROM PT. PT UP TO RESTROOM WITH SITTER FOR OBS. PT RETURNS TO STRETCHER W/O DIFFICULTS.
--- NOTE | 2021-02-15 21:36 | PC.NURSE ---
back from br with steady gait. fluids continue to infuse. calm and cooperative. no picking or self harm behaviours.
--- NOTE | 2021-02-15 22:22 | PC.NURSE ---
REFERRAL SENT TO [facility]. NO CHG IN PT'S CONDITION.
[2021-02-16] MEDS: Heparin Sodium,Porcine Flush 500 UNIT/5 ML SYRINGE IVFLUSH (00:04)
--- NOTE | 2021-02-16 00:07 | PC.NURSE ---
heparin injected and raya needle removed intact. pt ambulated to the pod without difficulty. report given to Nasima Russell
--- NOTE | 2021-02-16 00:22 | PC.NURSE ---
Per report [facility] referral was completed, N called spoke with Myrna, confirmed receipt of referral, patient will be seen in the morning, will continue to monitor.
[2021-02-16 00:39] VITALS: BP 106/73; PULSE 79; RESP 18; TEMP 36.4; O2SAT 95
[2021-02-16] MEDS: traZODone HCL 50 MG TABLET PO (00:42)
[2021-02-16] MEDS: Mirtazapine 15 MG TABLET PO (00:42)
[2021-02-16] MEDS: Topiramate 25 MG TABLET PO ×2 (00:42→09:08)
[2021-02-16] MEDS: Lithium Carbonate ER 300 MG TABLET.ER 600 MG PO (00:42)
[2021-02-16 00:43] VITALS: BP 106/73; PULSE 79
[2021-02-16] MEDS: chlorproMAZINE HCl 100 MG TABLET PO (00:43)
[2021-02-16] MEDS: Prazosin HCL 5 MG CAPSULE PO (00:43)
[2021-02-16] MEDS: LORazepam 1 MG TABLET PO (00:43)
[2021-02-16 00:46] LABS: COVID-19 Test Negative (Negative)
--- NOTE | 2021-02-16 06:36 | PC.NURSE ---
Patient in bed appears sleeping, slept through the night, patient was x 1 for bathroom use and back, patient is on 1:1 observation for suicidality, patient was compliant with her HS PO medication, no distress observed/reported, patient is awaiting [facility] for assessment, referral was made and confirmed, will continue to monitor.
--- NOTE | 2021-02-16 07:09 | PC.NURSE ---
patient appears to remain at rest presently, respirations are even and unlabored, maintained on 1:1 presently appears in no distress
[2021-02-16] MEDS: Nicotine 21 MG PATCH.TD24 TRANSDERMA (09:08)
[2021-02-16] MEDS: DULoxetine HCl 60 MG CAPSULE.DR PO (09:08)
[2021-02-16] MEDS: Omeprazole 20 MG CAPSULE.DR PO (09:08)
[2021-02-16] MEDS: Loratadine 10 MG TABLET PO (09:08)
== END 2021-02-16 09:57 | disposition home or self-care (01) ==
PROVIDERS: Nurse Practitioner Family; Emergency Provider Internal Medicine; PCP Pediatrics
DX: F33.3 Major depressive disorder, recurrent, severe with psychotic symptoms (principal); R45.851 Suicidal ideations; F60.3 Borderline personality disorder; F43.11 Post-traumatic stress disorder, acute; F41.9 Anxiety disorder, unspecified; S51.812A Laceration without foreign body of left forearm, initial encounter; X78.9XXA Intentional self-harm by unspecified sharp object, initial encounter; F17.210 Nicotine dependence, cigarettes, uncomplicated; Z91.5 Personal history of self-harm; Z20.822 Contact with and (suspected) exposure to COVID-19; Y93.9 Activity, unspecified; Y92.9 Unspecified place or not applicable; Y99.9 Unspecified external cause status; Z79.899 Other long term (current) drug therapy
CPT/HCPCS: 36415; 80053; 80307; 82077; 85025; 87635; 96360; 99284; 99285; J1642

== ENCOUNTER 2021-02-16 18:04 | Inpatient (IN) | payer OTHER, SELFPAY ==
[2021-02-16] VITALS (7 sets, daily range): BP systolic 115–143; BP diastolic 64–91; PULSE 79–113; RESP 18–20; TEMP 36.4–37.3; O2SAT 98–99; BMI 58.6
--- NOTE | ~2021-02-16 | CT_ITS ---
EXAMINATION: CT HEAD WITHOUT CONTRAST CLINICAL INFORMATION: Head injury, pain, rule out intracranial hemorrhage. COMPARISON: None TECHNIQUE: Contiguous axial imaging was performed from the skull base to vertex without intravenous administration of contrast. This CT examination was performed using dose optimization techniques as appropriate, variously including the following: *Automated exposure control *Adjustment of mA and/or kV according to patient size (this includes techniques or standardized protocols for targeted exams where dose is matched to indication/reason for exam; i.e. extremities or head) *Use of iterative reconstruction technique DLP: 655 mGy-cm FINDINGS: There is no evidence of acute intracranial hemorrhage or territorial infarction. No abnormal mass effect or midline shift is seen. Diaz to white matter differentiation is well preserved. No extra-axial fluid collections are identified. The ventricles are normal in size. There is no abnormal attenuation within the brain parenchyma. Soft tissue swelling and scalp hematoma in the frontal region. No acute calvarial fracture is seen. The mastoid air cells and visualized portions of the paranasal sinuses are well aerated. CT/CT head/brain wo con IMPRESSION: No CT evidence of acute intracranial pathology. Scalp hematoma and soft tissue swelling in the frontal region.
--- NOTE | ~2021-02-16 | CT_ITS ---
EXAMINATION: CT ABDOMEN AND PELVIS WITH AND WITHOUT CONTRAST: CT GI BLEEDING STUDY CLINICAL INFORMATION: Bloody and coffee ground like stools . COMPARISON: CT from 02/04/2021. TECHNIQUE: Multidetector volumetric imaging was performed from the lung bases to the pubic symphysis before and after the administration of: Intravenous contrast: 80 mL Omnipaque 350 No contrast reaction reported MIP coronal, sagittal and coronal reformatted images were obtained on the technologist workstation. This CT examination was performed using dose optimization techniques as appropriate, variously including the following: *Automated exposure control *Adjustment of mA and/or kV according to patient size (this includes techniques or standardized protocols for targeted exams where dose is matched to indication/reason for exam; i.e. extremities or head) *Use of iterative reconstruction technique Total exam dose-length product 2031 mGy-cm FINDINGS: STOMACH: No abnormal wall thickening or mass. No intraluminal contrast accumulation to suggest hemorrhage. SMALL BOWEL: No abnormal wall thickening or dilation. No intraluminal contrast accumulation to suggest hemorrhage. COLON: No intraluminal contrast accumulation to suggest hemorrhage. No colonic wall thickening or pericolonic inflammatory changes. Diverticulosis without evidence of diverticulitis. Normal appendix. LUNG BASES: 0.2 cm right lower lobe pulmonary nodule on series 12 image 9. This is unchanged from 2013. Right middle lobe 0.4 cm nodule is also unchanged. PLEURA: No pleural effusion. LIVER, GALLBLADDER, AND BILIARY TREE: The liver is normal in size, shape, and attenuation. No focal hepatic lesion or biliary ductal dilatation is present. The gallbladder is unremarkable with no evidence of radiopaque gallstones, gallbladder wall thickening, or obvious pericholecystic inflammatory changes. PANCREAS: Normal; no mass or surrounding fluid. SPLEEN: Normal size. No focal lesion. ADRENAL GLANDS: Normal; no mass. KIDNEYS AND URETERS: The kidneys are normal in size, shape, and attenuation. No hydronephrosis, hydroureter, or calculi. ABDOMINAL WALL: No hernia seen. LYMPHOVASCULAR STRUCTURES: No lymphadenopathy. The aorta is normal in caliber. BLADDER: No focal mass or wall thickening seen. No bladder calculi. PELVIC VISCERA: Normal CT appearance of the uterus. No adnexal mass seen. OSSEOUS STRUCTURES: No acute or suspicious osseous abnormality. CT/CT gi bleed abd pel wo/w con IMPRESSION: No evidence of active gastrointestinal bleed. No acute finding in the abdomen or pelvis. No inflammatory change. Unchanged small pulmonary nodules, suggesting benign etiology.
--- NOTE | 2021-02-16 18:19 | ED.PSYCH ---
HPI - Psych General Chief Complaint: Psychiatric Symptoms <Vanessa Tafoya NP - Last Filed: 02/16/21 20:53> Stated Complaint: SI <Vanessa Tafoya NP - Last Filed: 02/16/21 20:53> Time Seen by Provider: 02/16/21 18:18 <Vanessa Tafoya NP - Last Filed: 02/16/21 20:53> Source: patient and EMS <Vanessa Tafoya NP - Last Filed: 02/16/21 20:53> Mode of arrival: EMS <Vanessa Tafoya NP - Last Filed: 02/16/21 20:53> Limitations: no limitations <Vanessa Tafoya NP - Last Filed: 02/16/21 20:53> History of Present Illness HPI Narrative: 35-year-old female with significant psychiatric history, borderline personality disorder, recurrent major depression severe, schizoaffective disorder, COPD, asthma, GERD, significant history of self-inflicted injuries presents with suicidal ideation, and severe depression/anxiety. Patient states that she cannot function. Did not report any physical concerns at this time. <Vanessa Tafoya NP - Last Filed: 02/16/21 20:53> Related Data Home Medications: Home Medications Medication Instructions Recorded Confirmed sumatriptan succinate 1 tab PO NEEDED PRN 11/05/20 02/16/21 omeprazole 20 mg PO DAILY 11/29/20 02/16/21 acetaminophen 650 mg PO Q6H PRN 12/10/20 02/16/21 albuterol sulfate [ProAir HFA] 2 puff INHALATION Q6-8H PRN 12/10/20 02/16/21 ibuprofen 600 mg PO Q8H PRN 12/10/20 02/16/21 mirtazapine 1 tab PO BEDTIME 12/10/20 02/16/21 nicotine 1 patch TRANSDERMAL DAILY 12/10/20 02/16/21 cetirizine 10 mg PO DAILY 12/24/20 02/16/21 fluticasone propionate 1 spray INTRANASAL BID 12/24/20 02/16/21 fluticasone propionate [Flovent 2 puff INHALATION BID 12/24/20 02/16/21 HFA] hydroxyzine pamoate [Vistaril] 50 mg PO TID PRN 12/24/20 02/16/21 naproxen 1 tab PO Q8-12H PRN 12/24/20 02/16/21 topiramate 1 tab PO BID 12/24/20 02/16/21 haloperidol decanoate 50 mg IM Q4W 02/15/21 02/16/21 Previous Rx's Medication Instructions Recorded chlorpromazine 100 mg PO BEDTIME #30 tab 08/19/20 duloxetine 60 mg PO DAILY 30 Days #30 cap 08/19/20 haloperidol 5 mg PO BID PRN 30 Days #60 tab 08/19/20 lithium carbonate 600 mg PO BEDTIME #30 tab 08/19/20 lorazepam 1 mg PO BEDTIME 30 Days #30 tab 08/19/20 lorazepam 1 mg PO TID PRN 30 Days #90 tab 08/19/20 prazosin 5 mg PO BEDTIME 30 Days #30 cap 08/19/20 trazodone 50 mg PO BEDTIME PRN 30 Days #30 08/19/20 tab leg brace #1 ea 11/14/20 ondansetron 4 mg PO Q8H PRN #20 tab 02/04/21 <Vanessa Tafoya NP - Last Filed: 02/16/21 20:53> Allergies/Adverse Reactions: Allergies Allergy/AdvReac Type Severity Reaction Status Date / Time carbamazepine [From TEGRETOL] AdvReac Unknown NAUSEA & Verified 02/15/21 18:13 VOMITING <Vanessa Tafoya NP - Last Filed: 02/16/21 20:53> Review of Systems Review of Systems: Yes all other systems are reviewed and are negative <Vanessa Tafoya NP - Last Filed: 02/16/21 20:53> Constitutional: Constitutional: Reports no additional constitutional complaints, Denies body ache(s), Denies chills, Denies fever(s), Denies headache(s) and Denies weakness <Vanessa Tafoya NP - Last Filed: 02/16/21 20:53> Eyes: Eyes: Reports no additional eye complaints and Denies change in vision <SINAN Brooks Last Filed: 02/16/21 20:53> ENT: Reports system reviewed and no additional complaints, except as documented, Denies dizziness, Denies headache(s), Denies nasal congestion, Denies nasal discharge and Denies neck pain <Vanessa Tafoya NP - Last Filed: 02/16/21 20:53> Cardiovascular: Cardiovascular: Reports no additional cardiovascular complaints, Denies chest pain, Denies leg edema and Denies dyspnea <Vanessa Tafoya NP - Last Filed: 02/16/21 20:53> Respiratory: Respiratory: Reports no additional respiratory complaints, Denies cough and Denies dyspnea <Vaenssa Tafoya NP - Last Filed: 02/16/21 20:53> Gastrointestinal: Gastrointestinal: Reports no additional gastrointestinal complaints, Denies abdominal pain, Denies diarrhea, Denies nausea and Denies vomiting <Vanessa Tafoya NP - Last Filed: 02/16/21 20:53> Genitourinary: Genitourinary: Reports no additional female genitourinary complaints and Denies urinary incontinence <Vanessa Tafoya NP - Last Filed: 02/16/21 20:53> Musculoskeletal: Musculoskeletal: Reports no additional musculoskeletal complaints, Denies back pain, Denies arthralgias, Denies joint swelling, Denies neck pain, Denies numbness and Denies tingling <Vanessa Tafoya NP - Last Filed: 02/16/21 20:53> Integumentary/Breasts: Skin/Breast: Reports system reviewed and no additional complaints, except as docu and Denies rash <Vanessa Tafoya NP - Last Filed: 02/16/21 20:53> Neurologic: Reports system reviewed and no additional complaints, except as documented, Denies Abnormal speech present, Denies dizziness, Denies headache(s), Denies numbness, Denies tingling and Denies weakness <Vanessa Tafoya NP - Last Filed: 02/16/21 20:53> Psychiatric: Psychiatric: Reports anxiety, Reports depression, Denies homicidal ideation and Reports suicidal ideation <Vanessa Tafoya NP - Last Filed: 02/16/21 20:53> PMFSH Past Medical History Attestation statement: The following information was validated with the patient. <Vanessa Tafoya NP - Last Filed: 02/16/21 20:53> Medical History: Medical History Adjustment disorder Anxiety Asthma Borderline personality disorder COPD (chronic obstructive pulmonary disease) Depression GERD (gastroesophageal reflux disease) Increased BMI Injury, self-inflicted Intentional self-harm PTSD (post-traumatic stress disorder) Recurrent major depression-severe Schizoaffective disorder Self-harming behavior Suicidal ideation Suicidal ideation <Vanessa Tafoya NP - Last Filed: 02/16/21 20:53> Social History Social History: Social History Household Members: Other Household Members Other:: nursing home Housing: House Do you presently have visiting nurse or other home services: No Alcohol intake: never Cigarette Packs Per Day: 0.5 Cigarettes Per Day: 1 Years Smoked: 10 Second Hand Smoke Exposure: No Use of substances other than those prescribed or required for medical reasons: Yes Substance Use Type: Marijuana Substance Use Frequency: Daily Last Used Substance: Just Prior to Admission Any prior treatment program specific to substance use: No Advance Directives: No Advance Directives Information Provided: Yes Patient : No service: No <Vanessa Tafoya NP - Last Filed: 02/16/21 20:53> Physical Exam Vital Signs: Vital Signs: Last Vital Signs Temp 99.1 F 02/16/21 19:17 Pulse 79 02/16/21 21:21 Resp 18 02/16/21 19:55 BP 143/91 H 02/16/21 21:21 Pulse Ox 98 02/16/21 19:17 Body Mass Index 58.6 <Vanessa Tafoya NP - Last Filed: 02/16/21 20:53> Vital Signs: Last Vital Signs Temp 99.1 F 02/16/21 19:17 Pulse 79 02/16/21 21:21 Resp 18 02/16/21 19:55 BP 143/91 H 02/16/21 21:21 Pulse Ox 98 02/16/21 19:17 Body Mass Index 58.6 <JUANITO Chou - Last Filed: 02/16/21 21:41> Const: General: cooperative, healthy appearing, comfortable and no acute distress <Vanessa Tafoya NP - Last Filed: 02/16/21 20:53> Orientation/consciousness: patient oriented x3 <Vanessa Tafoya NP - Last Filed: 02/16/21 20:53> Limitations: no limitations <Vanessa Tafoya NP - Last Filed: 02/16/21 20:53> HENMT: Head: Yes normal to inspection <Vanessa Tafoya NP - Last Filed: 02/16/21 20:53> Ears: hearing grossly normal bilaterally <Vanessa Tafoya NP - Last Filed: 02/16/21 20:53> General nose exam: Normal external nose present <Vanessa Tafoya NP - Last Filed: 02/16/21 20:53> Face and sinus: Yes normal facial exam <Vanessa Tafoya NP - Last Filed: 02/16/21 20:53> Mouth: Normal oral and palatal mucosa present <Vanessa Tafoya NP - Last Filed: 02/16/21 20:53> Throat: Yes posterior oropharynx normal <Vanessa Tafoya NP - Last Filed: 02/16/21 20:53> Eyes: General: appearance normal, both eyes and all related structures <Vanessa Tafoya NP - Last Filed: 02/16/21 20:53> Pupils: Equal, round and reactive pupils present <Vanessa Tafoya NP - Last Filed: 02/16/21 20:53> Neck: Neck: Yes normal visual inspection <Vanessa Tafoya NP - Last Filed: 02/16/21 20:53> Chest: Chest palpation & inspection: normal inspection of the chest <Vanessa Tafoya NP - Last Filed: 02/16/21 20:53> Resp: Effort & Inspection: normal respiratory effort <Vanessa Tafoya NP - Last Filed: 02/16/21 20:53> Auscultation: clear to auscultation bilaterally <Vanessa Tafoya NP - Last Filed: 02/16/21 20:53> Cardio: Rate: regular rate <Vanessa Tafoya NP - Last Filed: 02/16/21 20:53> Rhythm: regular rhythm <Vanessa Tafoya NP - Last Filed: 02/16/21 20:53> Peripheral pulses: Peripheral pulses 2+ throughout <Vanessa Tafoya NP - Last Filed: 02/16/21 20:53> GI: Inspection: Yes normal to inspection <Vanessa Tafoya NP - Last Filed: 02/16/21 20:53> Palpation (GI): Soft to palpation and nontender <Vanessa Tafoya NP - Last Filed: 02/16/21 20:53> Auscultation: normal bowel sounds <Vanessa Tafoya NP - Last Filed: 02/16/21 20:53> Back/Spine/Pelvis: Thoracic/Lumbar Spine: thoracic and lumbar spine normal to inspection <Vanessa Tafoya NP - Last Filed: 02/16/21 20:53> Skin: General skin exam: no rashes or lesions noted <Vanessa Tafoya NP - Last Filed: 02/16/21 20:53> Neuro: General: patient oriented x3, no focal motor deficits and normal sensation to monofilament <Vanessa Tafoya NP - Last Filed: 02/16/21 20:53> Cranial nerves: Yes CN's II-XII intact bilaterally, Yes Equal, round and reactive pupils present, Yes Bilaterally intact EOM present, Yes Nystagmus not present and Yes Normal facial strength present <Vanessa Tafoya NP - Last Filed: 02/16/21 20:53> Cognition (Neuro): normal cognition <Vanessa Tafoya NP - Last Filed: 02/16/21 20:53> Speech: No Abnormal speech present <Vanessa Tafoya NP - Last Filed: 02/16/21 20:53> Gait exam (Neuro): Normal gait present <Vanessa Tafoya NP - Last Filed: 02/16/21 20:53> Motor exam (neuro): 5/5 motor strength present throughout <Vanessa Tafoya NP - Last Filed: 02/16/21 20:53> Sensory Exam: Normal double simultaneous stimulation for sensation <Vanessa Tafoya NP - Last Filed: 02/16/21 20:53> Extrem: General: Yes normal to inspection, Yes no pedal edema and Yes no calf tenderness <Vanessa Tafoya NP - Last Filed: 02/16/21 20:53> Course Course Course Narrative: 35-year-old female here with complaints of depression, anxiety and suicidal thoughts. Seen this morning and discharged home. Currently living in a nursing home. She tells me she was triggered today as she was unable to see her nephew and this made her very upset. No current physical complaints. Will check labs, drug screen, urine . 1839- Shortly after I spoke to the patient she threw herself forward onto the ground and started to strike her head on the floor. Staff was able to deescalate her and get her in to a seating position. She has approximately 2 cm linear laceration on the forehead. Bleeding is controlled. Normal neuro exam. Patient very anxious. Refusing to take p.o. medication. Will give IM medication for anxiety. Check CT head and close wound. 2049-Placed in physician observation pending disposition. Medications reconciled. Sign out to Evelia SOLOMON pending review of the CT head and medical clearance for crisis evaluation. <Vanessa Tafoya NP - Last Filed: 02/16/21 20:53> Procedures Procedure Narrative Procedure Narrative: 2 cm laceration over the forehead closed with skin glue <SINAN Brooks Last Filed: 02/16/21 20:53> MDM - Psych Medical Records Attestation: I reviewed the patient's medical records. <Vanessa Tafoya NP - Last Filed: 02/16/21 20:53> Lab Data Attestation: I reviewed the patient's lab results. <Vanessa Tafoya NP - Last Filed: 02/16/21 20:53> Result diagrams: : 02/16/21 19:08 02/16/21 19:08 <Vanessa Tafoya NP - Last Filed: 02/16/21 20:53> Labs: Lab Results 02/16/21 02/16/21 02/16/21 Range/Units 19:08 19:08 19:08 WBC 9.6 (4.8-10.8) X10*3/uL RBC 3.67 L (4.20-5.50) X10*6/uL Hgb 9.1 L (12.0-16.0) g/dl Hct 30.4 L (37-47) % MCV 82.8 (80-98) fL MCH 24.8 L (27.0-33.0) pg MCHC 29.9 L (31.0-35.0) g/dl RDW 17.0 H (11.0-16.0) % Plt Count 324 (160-400) X10*3/uL MPV 10.2 (9.4-12.3) fL Immature Gran % (Auto) 0.3 (0.0-0.4) % Neut % (Auto) 67.8 (45-73) % Lymph % (Auto) 26.1 (20-40) % [place] % (Auto) 5.6 (2-11) % Eos % (Auto) 0.1 (0-4) % Baso % (Auto) 0.1 (0-2) % Lymph # (Auto) 2.5 (1.2-4.9) X10*3/uL [place] # (Auto) 0.5 (0.1-1.2) X10*3/uL Eos # (Auto) 0.0 (0.0-0.4) X10*3/uL Baso # (Auto) 0.0 (0.0-0.2) X10*3/uL Abs Immat Gran (auto) 0.03 (0.00-0.03) X10*3/uL Absolute Neuts (auto) 6.5 (2.0-8.3) X10*3/uL Absolute Nucleated RBC 0.000 (0.0-0.012) X10*3/uL Nucleated RBC % (auto) 0.0 (0.0-0.2) /100WBC Sodium 139 (135-145) mmol/L Potassium 3.7 (3.3-5.1) mmol/L Chloride 110 H (96-108) mmol/L Carbon Dioxide 19 L (22-29) mmol/L Anion Gap 14 (12-20) BUN 6 L (9-16) mg/dL Creatinine 0.80 (0.5-1.4) mg/dL Estim Creat Clear Calc 148.2 Estimated GFR > 60 Random Glucose 96 (60-115) mg/dL Calcium 9.1 (8.4-10.2) mg/dL Urine Color Urine Appearance Urine pH (5.0-8.0) Ur Specific [place] (1.005-1.025) Urine Protein (NEG-TRACE) MG/DL Urine Glucose (UA) (NEG) MG/DL Urine Ketones (NEG) MG/DL Urine Blood (NEG) Urine Nitrite (NEG) Ur Leukocyte Esterase (NEG) Urine Test (NEGATIVE) Urine Opiates Screen (Not Detect) Ur Barbiturates Screen (Not Detect) Ur Phencyclidine Scrn (Not Detect) Ur Amphetamines Screen (Not Detect) U Benzodiazepines Scrn (Not Detect) Urine Cocaine Screen (Not Detect) U Marijuana (THC) Screen (Not Detect) Ethyl Alcohol < 10 mg/dL COVID-19 (RAFAL) (Negative) COVID-19 Clin Com 02/16/21 02/16/21 02/16/21 Range/Units 19:10 19:47 19:47 WBC (4.8-10.8) X10*3/uL RBC (4.20-5.50) X10*6/uL Hgb (12.0-16.0) g/dl Hct (37-47) % MCV (80-98) fL MCH (27.0-33.0) pg MCHC (31.0-35.0) g/dl RDW (11.0-16.0) % Plt Count (160-400) X10*3/uL MPV (9.4-12.3) fL Immature Gran % (Auto) (0.0-0.4) % Neut % (Auto) (45-73) % Lymph % (Auto) (20-40) % [place] % (Auto) (2-11) % Eos % (Auto) (0-4) % Baso % (Auto) (0-2) % Lymph # (Auto) (1.2-4.9) X10*3/uL [place] # (Auto) (0.1-1.2) X10*3/uL Eos # (Auto) (0.0-0.4) X10*3/uL Baso # (Auto) (0.0-0.2) X10*3/uL Abs Immat Gran (auto) (0.00-0.03) X10*3/uL Absolute Neuts (auto) (2.0-8.3) X10*3/uL Absolute Nucleated RBC (0.0-0.012) X10*3/uL Nucleated RBC % (auto) (0.0-0.2) /100WBC Sodium (135-145) mmol/L Potassium (3.3-5.1) mmol/L Chloride (96-108) mmol/L Carbon Dioxide (22-29) mmol/L Anion Gap (12-20) BUN (9-16) mg/dL Creatinine (0.5-1.4) mg/dL Estim Creat Clear Calc Estimated GFR Random Glucose (60-115) mg/dL Calcium (8.4-10.2) mg/dL Urine Color Urine Appearance Urine pH (5.0-8.0) Ur Specific [place] (1.005-1.025) Urine Protein (NEG-TRACE) MG/DL Urine Glucose (UA) (NEG) MG/DL Urine Ketones (NEG) MG/DL Urine Blood (NEG) Urine Nitrite (NEG) Ur Leukocyte Esterase (NEG) Urine Test NEGATIVE (NEGATIVE) Urine Opiates Screen Not Detected (Not Detect) Ur Barbiturates Screen Not Detected (Not Detect) Ur Phencyclidine Scrn Not Detected (Not Detect) Ur Amphetamines Screen Not Detected (Not Detect) U Benzodiazepines Scrn Not Detected (Not Detect) Urine Cocaine Screen Not Detected (Not Detect) U Marijuana (THC) Screen POSITIVE H (Not Detect) Ethyl Alcohol mg/dL COVID-19 (RAFAL) Negative (Negative) COVID-19 Clin Com See Note 02/16/21 Range/Units 19:47 WBC (4.8-10.8) X10*3/uL RBC (4.20-5.50) X10*6/uL Hgb (12.0-16.0) g/dl Hct (37-47) % MCV (80-98) fL MCH (27.0-33.0) pg MCHC (31.0-35.0) g/dl RDW (11.0-16.0) % Plt Count (160-400) X10*3/uL MPV (9.4-12.3) fL Immature Gran % (Auto) (0.0-0.4) % Neut % (Auto) (45-73) % Lymph % (Auto) (20-40) % [place] % (Auto) (2-11) % Eos % (Auto) (0-4) % Baso % (Auto) (0-2) % Lymph # (Auto) (1.2-4.9) X10*3/uL [place] # (Auto) (0.1-1.2) X10*3/uL Eos # (Auto) (0.0-0.4) X10*3/uL Baso # (Auto) (0.0-0.2) X10*3/uL Abs Immat Gran (auto) (0.00-0.03) X10*3/uL Absolute Neuts (auto) (2.0-8.3) X10*3/uL Absolute Nucleated RBC (0.0-0.012) X10*3/uL Nucleated RBC % (auto) (0.0-0.2) /100WBC Sodium (135-145) mmol/L Potassium (3.3-5.1) mmol/L Chloride (96-108) mmol/L Carbon Dioxide (22-29) mmol/L Anion Gap (12-20) BUN (9-16) mg/dL Creatinine (0.5-1.4) mg/dL Estim Creat Clear Calc Estimated GFR Random Glucose (60-115) mg/dL Calcium (8.4-10.2) mg/dL Urine Color YELLOW Urine Appearance HAZY Urine pH 6.0 (5.0-8.0) Ur Specific [place] <= 1.005 (1.005-1.025) Urine Protein NEG (NEG-TRACE) MG/DL Urine Glucose (UA) NEG (NEG) MG/DL Urine Ketones NEG (NEG) MG/DL Urine Blood NEG (NEG) Urine Nitrite NEG (NEG) Ur Leukocyte Esterase NEG (NEG) Urine Test (NEGATIVE) Urine Opiates Screen (Not Detect) Ur Barbiturates Screen (Not Detect) Ur Phencyclidine Scrn (Not Detect) Ur Amphetamines Screen (Not Detect) U Benzodiazepines Scrn (Not Detect) Urine Cocaine Screen (Not Detect) U Marijuana (THC) Screen (Not Detect) Ethyl Alcohol mg/dL COVID-19 (RAFAL) (Negative) COVID-19 Clin Com <Vanessa Michelet, FIRMWARE MANAGER - Last Filed: 02/16/21 20:53> Lab Results 02/16/21 02/16/21 02/16/21 Range/Units 19:08 19:08 19:08 WBC 9.6 (4.8-10.8) X10*3/uL RBC 3.67 L (4.20-5.50) X10*6/uL Hgb 9.1 L (12.0-16.0) g/dl Hct 30.4 L (37-47) % MCV 82.8 (80-98) fL MCH 24.8 L (27.0-33.0) pg MCHC 29.9 L (31.0-35.0) g/dl RDW 17.0 H (11.0-16.0) % Plt Count 324 (160-400) X10*3/uL MPV 10.2 (9.4-12.3) fL Immature Gran % (Auto) 0.3 (0.0-0.4) % Neut % (Auto) 67.8 (45-73) % Lymph % (Auto) 26.1 (20-40) % [place] % (Auto) 5.6 (2-11) % Eos % (Auto) 0.1 (0-4) % Baso % (Auto) 0.1 (0-2) % Lymph # (Auto) 2.5 (1.2-4.9) X10*3/uL [place] # (Auto) 0.5 (0.1-1.2) X10*3/uL Eos # (Auto) 0.0 (0.0-0.4) X10*3/uL Baso # (Auto) 0.0 (0.0-0.2) X10*3/uL Abs Immat Gran (auto) 0.03 (0.00-0.03) X10*3/uL Absolute Neuts (auto) 6.5 (2.0-8.3) X10*3/uL Absolute Nucleated RBC 0.000 (0.0-0.012) X10*3/uL Nucleated RBC % (auto) 0.0 (0.0-0.2) /100WBC Sodium 139 (135-145) mmol/L Potassium 3.7 (3.3-5.1) mmol/L Chloride 110 H (96-108) mmol/L Carbon Dioxide 19 L (22-29) mmol/L Anion Gap 14 (12-20) BUN 6 L (9-16) mg/dL Creatinine 0.80 (0.5-1.4) mg/dL Estim Creat Clear Calc 148.2 Estimated GFR > 60 Random Glucose 96 (60-115) mg/dL Calcium 9.1 (8.4-10.2) mg/dL Urine Color Urine Appearance Urine pH (5.0-8.0) Ur Specific [place] (1.005-1.025) Urine Protein (NEG-TRACE) MG/DL Urine Glucose (UA) (NEG) MG/DL Urine Ketones (NEG) MG/DL Urine Blood (NEG) Urine Nitrite (NEG) Ur Leukocyte Esterase (NEG) Urine Test (NEGATIVE) Urine Opiates Screen (Not Detect) Ur Barbiturates Screen (Not Detect) Ur Phencyclidine Scrn (Not Detect) Ur Amphetamines Screen (Not Detect) U Benzodiazepines Scrn (Not Detect) Urine Cocaine Screen (Not Detect) U Marijuana (THC) Screen (Not Detect) Ethyl Alcohol < 10 mg/dL COVID-19 (RAFAL) (Negative) COVID-19 Clin Com 02/16/21 02/16/21 02/16/21 Range/Units 19:10 19:47 19:47 WBC (4.8-10.8) X10*3/uL RBC (4.20-5.50) X10*6/uL Hgb (12.0-16.0) g/dl Hct (37-47) % MCV (80-98) fL MCH (27.0-33.0) pg MCHC (31.0-35.0) g/dl RDW (11.0-16.0) % Plt Count (160-400) X10*3/uL MPV (9.4-12.3) fL Immature Gran % (Auto) (0.0-0.4) % Neut % (Auto) (45-73) % Lymph % (Auto) (20-40) % [place] % (Auto) (2-11) % Eos % (Auto) (0-4) % Baso % (Auto) (0-2) % Lymph # (Auto) (1.2-4.9) X10*3/uL [place] # (Auto) (0.1-1.2) X10*3/uL Eos # (Auto) (0.0-0.4) X10*3/uL Baso # (Auto) (0.0-0.2) X10*3/uL Abs Immat Gran (auto) (0.00-0.03) X10*3/uL Absolute Neuts (auto) (2.0-8.3) X10*3/uL Absolute Nucleated RBC (0.0-0.012) X10*3/uL Nucleated RBC % (auto) (0.0-0.2) /100WBC Sodium (135-145) mmol/L Potassium (3.3-5.1) mmol/L Chloride (96-108) mmol/L Carbon Dioxide (22-29) mmol/L Anion Gap (12-20) BUN (9-16) mg/dL Creatinine (0.5-1.4) mg/dL Estim Creat Clear Calc Estimated GFR Random Glucose (60-115) mg/dL Calcium (8.4-10.2) mg/dL Urine Color Urine Appearance Urine pH (5.0-8.0) Ur Specific [place] (1.005-1.025) Urine Protein (NEG-TRACE) MG/DL Urine Glucose (UA) (NEG) MG/DL Urine Ketones (NEG) MG/DL Urine Blood (NEG) Urine Nitrite (NEG) Ur Leukocyte Esterase (NEG) Urine Test NEGATIVE (NEGATIVE) Urine Opiates Screen Not Detected (Not Detect) Ur Barbiturates Screen Not Detected (Not Detect) Ur Phencyclidine Scrn Not Detected (Not Detect) Ur Amphetamines Screen Not Detected (Not Detect) U Benzodiazepines Scrn Not Detected (Not Detect) Urine Cocaine Screen Not Detected (Not Detect) U Marijuana (THC) Screen POSITIVE H (Not Detect) Ethyl Alcohol mg/dL COVID-19 (RAFAL) Negative (Negative) COVID-19 Clin Com See Note 02/16/21 Range/Units 19:47 WBC (4.8-10.8) X10*3/uL RBC (4.20-5.50) X10*6/uL Hgb (12.0-16.0) g/dl Hct (37-47) % MCV (80-98) fL MCH (27.0-33.0) pg MCHC (31.0-35.0) g/dl RDW (11.0-16.0) % Plt Count (160-400) X10*3/uL MPV (9.4-12.3) fL Immature Gran % (Auto) (0.0-0.4) % Neut % (Auto) (45-73) % Lymph % (Auto) (20-40) % [place] % (Auto) (2-11) % Eos % (Auto) (0-4) % Baso % (Auto) (0-2) % Lymph # (Auto) (1.2-4.9) X10*3/uL [place] # (Auto) (0.1-1.2) X10*3/uL Eos # (Auto) (0.0-0.4) X10*3/uL Baso # (Auto) (0.0-0.2) X10*3/uL Abs Immat Gran (auto) (0.00-0.03) X10*3/uL Absolute Neuts (auto) (2.0-8.3) X10*3/uL Absolute Nucleated RBC (0.0-0.012) X10*3/uL Nucleated RBC % (auto) (0.0-0.2) /100WBC Sodium (135-145) mmol/L Potassium (3.3-5.1) mmol/L Chloride (96-108) mmol/L Carbon Dioxide (22-29) mmol/L Anion Gap (12-20) BUN (9-16) mg/dL Creatinine (0.5-1.4) mg/dL Estim Creat Clear Calc Estimated GFR Random Glucose (60-115) mg/dL Calcium (8.4-10.2) mg/dL Urine Color YELLOW Urine Appearance HAZY Urine pH 6.0 (5.0-8.0) Ur Specific [place] <= 1.005 (1.005-1.025) Urine Protein NEG (NEG-TRACE) MG/DL Urine Glucose (UA) NEG (NEG) MG/DL Urine Ketones NEG (NEG) MG/DL Urine Blood NEG (NEG) Urine Nitrite NEG (NEG) Ur Leukocyte Esterase NEG (NEG) Urine Test (NEGATIVE) Urine Opiates Screen (Not Detect) Ur Barbiturates Screen (Not Detect) Ur Phencyclidine Scrn (Not Detect) Ur Amphetamines Screen (Not Detect) U Benzodiazepines Scrn (Not Detect) Urine Cocaine Screen (Not Detect) U Marijuana (THC) Screen (Not Detect) Ethyl Alcohol mg/dL COVID-19 (RAFAL) (Negative) COVID-19 Clin Com <JUANITO Chou - Last Filed: 02/16/21 21:41> Discharge Plan Discharge Clinical Impression: Acute post-traumatic stress disorder <Vanessa Tafoya NP - Last Filed: 02/16/21 20:53> Prescriptions: No Action sumatriptan succinate 50 mg tablet 1 tab PO NEEDED PRN (Reason: Migraine Headache) RF: 0 omeprazole 20 mg capsule,delayed release(DR/EC) 20 mg PO DAILY RF: 0 ondansetron 4 mg tablet,disintegrating 4 mg PO Q8H PRN (Reason: nausea and vomiting) Qty: 20 RF: 0 chlorpromazine 100 mg Tablet 100 mg PO BEDTIME Qty: 30 RF: 0 lorazepam 1 mg Tablet 1 mg PO BEDTIME 30 Days Qty: 30 RF: 0 lorazepam 1 mg Tablet 1 mg PO TID PRN (Reason: Anxiety/Restlessness ) 30 Days Qty: 90 RF: 0 trazodone 50 mg Tablet 50 mg PO BEDTIME PRN (Reason: Insomnia) 30 Days Qty: 30 RF: 0 lithium carbonate 300 mg Tablet Extended Release 600 mg PO BEDTIME Qty: 30 RF: 0 prazosin 5 mg Capsule 5 mg PO BEDTIME 30 Days Qty: 30 RF: 0 duloxetine 60 mg Capsule,Delayed Release(Dr/Ec) 60 mg PO DAILY 30 Days Qty: 30 RF: 0 haloperidol 5 mg Tablet 5 mg PO BID PRN (Reason: psychosis) 30 Days Qty: 60 RF: 0 mirtazapine 15 mg tablet 1 tab PO BEDTIME RF: 0 albuterol sulfate [ProAir HFA] 90 mcg/actuation HFA aerosol inhaler 2 puff inhalation Q6-8H PRN (Reason: Wheezing) RF: 0 acetaminophen 500 mg Tablet 650 mg PO Q6H PRN (Reason: Pain) RF: 0 nicotine 21 mg/24 hr Patch 24 Hour 1 patch TRANSDERMAL DAILY RF: 0 ibuprofen 600 mg Tablet 600 mg PO Q8H PRN (Reason: Pain) RF: 0 hydroxyzine pamoate [Vistaril] 50 mg capsule 50 mg PO TID PRN (Reason: Anxiety) RF: 0 cetirizine 10 mg Tablet 10 mg PO DAILY RF: 0 fluticasone propionate 50 mcg/actuation spray,suspension 1 spray intranasal BID RF: 0 naproxen 500 mg tablet 1 tab PO Q8-12H PRN (Reason: Toothache) RF: 0 topiramate 25 mg tablet 1 tab PO BID RF: 0 Flovent HFA 110 mcg/actuation HFA aerosol inhaler 2 puff inhalation BID RF: 0 haloperidol decanoate 50 mg/mL solution 50 mg IM Q4W RF: 0 (DME) leg brace Misc See Rx Instructions miscellaneous .MEDSUPPLY Qty: 1 RF: 0 <Vanessa Tafoya NP - Last Filed: 02/16/21 20:53> ED Observation ED Observation Progress Notes 1: Progress Note: 02/16/21 - 21:[address] scan of brain revealed FINDINGS: There is no evidence of acute intracranial hemorrhage or territorial infarction. No abnormal mass effect or midline shift is seen. Diaz to white matter differentiation is well preserved. No extra-axial fluid collections are identified. The ventricles are normal in size. There is no abnormal attenuation within the brain parenchyma. Soft tissue swelling and scalp hematoma in the frontal region. No acute calvarial fracture is seen. The mastoid air cells and visualized portions of the paranasal sinuses are well aerated. CT/CT head/brain wo con IMPRESSION: No CT evidence of acute intracranial pathology. Scalp hematoma and soft tissue swelling in the frontal region. therefore physician observation will be continued patient awaiting to be evaluated by N. Will continue to monitor. <JUANITO Chou - Last Filed: 02/16/21 21:41>
[2021-02-16] MEDS: Haloperidol Lactate 5 MG/ML VIAL IM (18:47)
[2021-02-16] MEDS: LORazepam 2 MG/ML VIAL IM (18:47)
[2021-02-16 19:19] LABS: MANUAL DIFF FLAG NO
[2021-02-16 19:20] LABS: Basophils Percent Auto 0.1 % (0-2); Eosinophils Percent Auto 0.1 % (0-4); Hematocrit 30.4 % (37-47); Hemoglobin 9.1 g/dl (12.0-16.0); Imm Gran Abs Auto 0.03 X10*3/uL (0.00-0.03); Imm Gran Pct Auto 0.3 % (0.0-0.4); Lymphocytes Absolute Auto 2.5 X10*3/uL (1.2-4.9); Lymphocytes Percent Auto 26.1 % (20-40); Mean Corpuscular HGB Conc 29.9 g/dl (31.0-35.0); Mean Corpuscular Hemoglobin 24.8 pg (27.0-33.0); Mean Corpuscular Volume 82.8 fL (80-98); Mean Platelet Volume 10.2 fL (9.4-12.3); Monocytes Absolute Auto 0.5 X10*3/uL (0.1-1.2); Monocytes Percent Auto 5.6 % (2-11); Neutrophils Absolute Auto 6.5 X10*3/uL (2.0-8.3); Neutrophils Percent Auto 67.8 % (45-73); Platelet Count 324 X10*3/uL (160-400); Red Blood Count 3.67 X10*6/uL (4.20-5.50); White Blood Count 9.6 X10*3/uL (4.8-10.8)
[2021-02-16 19:45] LABS: Ethanol < 10 mg/dL
[2021-02-16 19:46] LABS: Anion Gap 14 (12-20); Blood Urea Nitrogen 6 mg/dL (9-16); Calcium 9.1 mg/dL (8.4-10.2); Carbon Dioxide 19 mmol/L (22-29); Chloride 110 mmol/L (96-108); Creatinine Clr Calc Pharmacy 148.2; Estimated Glomerular Filt Rate > 60; Glucose Random 96 mg/dL (60-115); Potassium 3.7 mmol/L (3.3-5.1); Sodium 139 mmol/L (135-145)
[2021-02-16 19:52] LABS: COVID-19 Test Negative (Negative)
[2021-02-16 19:56] LABS: Glucose Urine UA NEG (NEG); Leukocyte Esterase Urine NEG (NEG); Nitrite Urine NEG (NEG); Specific Gravity - Urine <= 1.005 (1.005-1.025); Urine Blood NEG (NEG); Urine Ketones NEG (NEG); Urine Protein NEG (NEG-TRACE)
[2021-02-16 20:01] LABS: UPreg QC Valid YES; Urine Pregnancy NEGATIVE (NEGATIVE)
[2021-02-16 20:02] LABS: Appearance Urine HAZY; Color Urine YELLOW
[2021-02-16 20:28] LABS: Amphetamine Screen Urine Not Detected (Not Detect); Barbiturates, Urine Not Detected (Not Detect); Benzodiazepines Screen Urine Not Detected (Not Detect); Cannabinoid Screen Urine POSITIVE (Not Detect); Cocaine Screen Urine Not Detected (Not Detect); Opiate Screen Urine Not Detected (Not Detect); Phencyclidine Screen Urine Not Detected (Not Detect)
[2021-02-16] MEDS: chlorproMAZINE HCl 100 MG TABLET PO (21:20)
[2021-02-16] MEDS: Lithium Carbonate ER 300 MG TABLET.ER 600 MG PO (21:20)
[2021-02-16] MEDS: HaloperidoL 5 MG TABLET PO (21:20)
[2021-02-16] MEDS: LORazepam 1 MG TABLET PO (21:20)
[2021-02-16] MEDS: Topiramate 25 MG TABLET PO (21:20)
[2021-02-16] MEDS: Mirtazapine 15 MG TABLET PO (21:20)
[2021-02-16] MEDS: traZODone HCL 50 MG TABLET PO (21:20)
[2021-02-16] MEDS: Prazosin HCL 5 MG CAPSULE PO (21:21)
--- NOTE | 2021-02-16 23:29 | PC.NURSE ---
Patient compliant with her HS PO medication, compliant with CT head, N referral completed via smart-sheet called Tasha [facility] ultrasound tech as advised by [facility] hide house supervisor, confirmed receipt of referral, no eta at this time, will continue to monitor.
--- NOTE | 2021-02-17 05:30 | PC.NURSE ---
Patient slept through the night, no distress observed/reported, patient observed on 1:1 for safety and suicidaility, patient compliant with her HS PO medication, awaiting BHN evluation in the morning, will continue to monitor.
[2021-02-17] MEDS: Omeprazole 20 MG CAPSULE.DR PO (06:13)
[2021-02-17 06:33] VITALS: BP 122/74; PULSE 68; RESP 16; TEMP 36.3; O2SAT 96
--- NOTE | 2021-02-17 07:33 | PC.NURSE ---
Report from jatinder Russell sleeping at this time, 1:1 maintained.
[2021-02-17] MEDS: Topiramate 25 MG TABLET PO ×2 (09:27→20:20)
[2021-02-17] MEDS: DULoxetine HCl 60 MG CAPSULE.DR PO (09:27)
[2021-02-17] MEDS: Nicotine 21 MG PATCH.TD24 TRANSDERMA (09:27)
[2021-02-17] MEDS: Loratadine 10 MG TABLET PO (09:27)
[2021-02-17 10:05] VITALS: PULSE 92; RESP 16; O2SAT 98
--- NOTE | 2021-02-17 10:32 | PC.NURSE ---
[facility] called and confirmed that they received the consult and pt info
[2021-02-17] MEDS: HaloperidoL 5 MG TABLET PO (14:11)
[2021-02-17] MEDS: hydrOXYzine HCL 50 MG TABLET PO (14:11)
[2021-02-17] MEDS: LORazepam 1 MG TABLET PO ×2 (14:11→20:21)
--- NOTE | 2021-02-17 14:14 | PC.NURSE ---
pt beginning to exibit self harm behaviors, banging head into a wall. Medicated with PRNs as charted,n 1:1 maintained for pt safety.
--- NOTE | 2021-02-17 15:10 | PC.NURSE ---
WHILE MHA WAS AT BEDSIDE IN 1:1 CAPACITY PT WAS NOTED TO BE PLAYING WITH SOMETHING IN HAND, WHEN ASKED WHAT IT WAS PT OFFERED UP RAZOR BLADE WHICH SHE HAD HIDDEN ON HER PERSON, A PLASTIC DISPOSABLE RAZOR BLADE COVER WAS ALSO HANDED OVER, PT DENIES HAVING DISPOSABLE BLADE ON HER PERSON. CHARGE NURSE AND SECURITY NOTIFIED.
[2021-02-17] MEDS: Mirtazapine 15 MG TABLET PO (20:20)
[2021-02-17] MEDS: traZODone HCL 50 MG TABLET PO (20:20)
[2021-02-17] MEDS: Lithium Carbonate ER 300 MG TABLET.ER 600 MG PO (20:20)
[2021-02-17] MEDS: chlorproMAZINE HCl 100 MG TABLET PO (20:20)
[2021-02-17 20:22] VITALS: BP 113/60; PULSE 82
[2021-02-17] MEDS: Prazosin HCL 5 MG CAPSULE PO (20:22)
[2021-02-17 20:32] VITALS: BP 113/60; PULSE 82; RESP 14; O2SAT 92
[2021-02-17 22:30] VITALS: BP 111/63; PULSE 93; TEMP 36.3; O2SAT 93
--- NOTE | 2021-02-17 23:39 | PC.NURSE ---
Patient had one episode of self harming behavior, immediately intervened, observed on 1:1 for safety, compliant with her medication, currently in bed appears sleeping, no distress observed/reported, will continue to monitor.
--- NOTE | 2021-02-18 06:06 | PC.NURSE ---
Patient slept through the night, observed on 1:1 for observation, no distress observed/reported, patient disposition is section 12 inpatient bed search, will continue to monitor.
[2021-02-18] MEDS: Omeprazole 20 MG CAPSULE.DR PO (06:24)
[2021-02-18] MEDS: Nicotine 21 MG PATCH.TD24 TRANSDERMA (08:33)
[2021-02-18 08:34] VITALS: BP 108/65; PULSE 86; RESP 18; TEMP 36.4; O2SAT 96
[2021-02-18] MEDS: Fluticasone Propionate Nasal 16 GM SPRAY 1 SPRAY NOSTRIL-B (08:34)
[2021-02-18] MEDS: DULoxetine HCl 60 MG CAPSULE.DR PO (08:34)
[2021-02-18] MEDS: Fluticasone Propionate 100 MCG BLST.W.DEV 2 PUFF INHALE (08:34)
[2021-02-18] MEDS: Topiramate 25 MG TABLET PO ×2 (08:34→20:40)
[2021-02-18] MEDS: Loratadine 10 MG TABLET PO (08:34)
--- NOTE | 2021-02-18 10:14 | PC.NURSE ---
Pt sleeping in room. Respirations even/unlabored bilaterally. No sign of distress at this time. 1:[address] Will continue to monitor.
[2021-02-18] MEDS: HaloperidoL 5 MG TABLET PO ×2 (10:38→20:40)
[2021-02-18] MEDS: LORazepam 1 MG TABLET PO ×2 (10:38→20:40)
[2021-02-18 14:00] VITALS: RESP 16
[2021-02-18] MEDS: Mirtazapine 15 MG TABLET PO (20:40)
[2021-02-18] MEDS: chlorproMAZINE HCl 100 MG TABLET PO (20:40)
[2021-02-18] MEDS: traZODone HCL 50 MG TABLET PO (20:40)
[2021-02-18] MEDS: Lithium Carbonate ER 300 MG TABLET.ER 600 MG PO (20:40)
[2021-02-18 20:41] VITALS: BP 124/95; PULSE 98
[2021-02-18] MEDS: Prazosin HCL 5 MG CAPSULE PO (20:41)
[2021-02-18 20:47] VITALS: BP 124/85; PULSE 96; TEMP 36.2; O2SAT 98
[2021-02-18] MEDS: Acetaminophen 325 MG TABLET 650 MG PO (21:02)
--- NOTE | 2021-02-18 21:07 | PC.NURSE ---
Patient compliant with night time meds, reported pelvic region discomfort and dysurea, VSS, will continue to monitor on 1:1 for safety.
[2021-02-18 21:09] LABS: Glucose Urine UA NEG (NEG); Leukocyte Esterase Urine NEG (NEG); Nitrite Urine NEG (NEG); Specific Gravity - Urine 1.015 (1.005-1.025); Urine Blood NEG (NEG); Urine Ketones NEG (NEG); Urine Protein NEG (NEG-TRACE)
[2021-02-18 21:14] LABS: Appearance Urine CLEAR; Color Urine YELLOW
[2021-02-18] MEDS: LORazepam 1 MG TABLET 2 MG PO (22:57)
[2021-02-18 23:15] LABS: OBS Int Ctl Valid YES; OBS1 NEGATIVE (NEGATIVE)
--- NOTE | 2021-02-18 23:44 | PC.NURSE ---
Patient had an episode of vomiting during shower and incontinence of bowel, provider notified, ordered SCB, stool sample collected/sent to lab/result negative, patient is out to main ED for abdominal CT
[2021-02-18] MEDS: iohexoL 350 MG/ML 100 ML INFUS..BTL 80 ML IV (23:45)
--- NOTE | 2021-02-18 23:53 | PC.NURSE ---
Patient just ambulated back from CT, abdomen/Pelvis CT done, result pending, patient calm and quiet, will continue to monitor.
--- NOTE | 2021-02-19 | ECG_ITS ---
Test Reason : MEDICAL CLEARANCE Blood Pressure : / mmHG Vent. Rate : 085 BPM Atrial Rate : 085 BPM P-R Int : 144 ms QRS Dur : 072 ms QT Int : 362 ms P-R-T Axes : 051 067 075 degrees QTc Int : 430 ms Normal sinus rhythm Nonspecific T wave abnormality Abnormal ECG When compared with ECG of 15-JAN-2021 09:05, No significant change was found Referred By: Aaron Diaz Electronically Signed By:LIZET ANN
[2021-02-19] MEDS: Omeprazole 20 MG CAPSULE.DR PO (06:04)
--- NOTE | 2021-02-19 06:09 | PC.NURSE ---
Patient slept through the night, patient observed on 1:1 for safety, no distress observed/reported, Abdomen/Pelvis CT negative, Guacc negative, compliant with medication, no behavioral issues and concerns during overnight shift, VSS, will continue to monitor.
[2021-02-19 06:21] VITALS: BP 132/82; PULSE 88; RESP 17; TEMP 36.6; O2SAT 95
--- NOTE | 2021-02-19 07:03 | PC.NURSE ---
patient appears to remain at rest at present with even unlabored breaths, patient appears in no distress
[2021-02-19] MEDS: DULoxetine HCl 60 MG CAPSULE.DR PO (09:22)
[2021-02-19] MEDS: Fluticasone Propionate 100 MCG BLST.W.DEV 2 PUFF INHALE (09:22)
[2021-02-19] MEDS: Nicotine 21 MG PATCH.TD24 TRANSDERMA (09:22)
[2021-02-19] MEDS: Loratadine 10 MG TABLET PO (09:23)
[2021-02-19] MEDS: Fluticasone Propionate Nasal 16 GM SPRAY 1 SPRAY NOSTRIL-B (09:23)
[2021-02-19] MEDS: Topiramate 25 MG TABLET PO ×2 (09:23→19:46)
--- NOTE | 2021-02-19 16:27 | PC.NURSE ---
Pt has been calm since this rn arrival at 1500. 1:1 assigned. No self harm behaviours. Denies abd pain at this time.
[2021-02-19] MEDS: LORazepam 1 MG TABLET PO ×2 (19:43→23:59)
[2021-02-19] MEDS: chlorproMAZINE HCl 100 MG TABLET PO (19:43)
[2021-02-19] MEDS: Lithium Carbonate ER 300 MG TABLET.ER 600 MG PO (19:45)
[2021-02-19 19:46] VITALS: BP 118/64; PULSE 106
[2021-02-19] MEDS: Mirtazapine 15 MG TABLET PO (19:46)
[2021-02-19] MEDS: Prazosin HCL 5 MG CAPSULE PO (19:46)
[2021-02-19 19:52] VITALS: BP 118/64; PULSE 106; RESP 18; TEMP 36.6; O2SAT 97
--- NOTE | 2021-02-19 21:26 | PC.ADMIT ---
Pt is a 35yr old Kyrgyz speaking female who was admitted to this afternoon from [place] ED at approx 1715 on a CV.. Pt presented with +SI, depression and anxiety. Auditory hallucinations telling her she is stupid and nothing is going her way. Pt is covid -, utox + for MJ. Pt has had many admissions in the past and is known to . Pt continues on 1:1 on the unit. Pt cooperative during the intake process with this RN. Was seen at times sitting near the phone in the hallway banging her head lightly at times, was redirectable, pt compliant with meds.
[2021-02-20 07:00] VITALS: BMI 44.6
[2021-02-20] MEDS: Loratadine 10 MG TABLET PO (08:51)
[2021-02-20] MEDS: Fluticasone Propionate 100 MCG BLST.W.DEV 2 PUFF INHALE (08:51)
[2021-02-20] MEDS: Omeprazole 20 MG CAPSULE.DR PO (08:51)
[2021-02-20] MEDS: DULoxetine HCl 60 MG CAPSULE.DR PO (08:51)
[2021-02-20] MEDS: Topiramate 25 MG TABLET PO ×2 (08:51→20:10)
[2021-02-20] MEDS: Nicotine 21 MG PATCH.TD24 TRANSDERMA (08:51)
[2021-02-20 10:07] LABS: MANUAL DIFF FLAG NO
[2021-02-20 10:12] LABS: Basophils Percent Auto 0.1 % (0-2); Eosinophils Percent Auto 0.1 % (0-4); Hematocrit 34.8 % (37-47); Hemoglobin 10.8 g/dl (12.0-16.0); Imm Gran Abs Auto 0.02 X10*3/uL (0.00-0.03); Imm Gran Pct Auto 0.3 % (0.0-0.4); Lymphocytes Absolute Auto 2.2 X10*3/uL (1.2-4.9); Lymphocytes Percent Auto 31.4 % (20-40); Mean Corpuscular Hemoglobin 25.2 pg (27.0-33.0); Mean Corpuscular Volume 81.1 fL (80-98); Mean Platelet Volume 10.5 fL (9.4-12.3); Monocytes Absolute Auto 0.6 X10*3/uL (0.1-1.2); Neutrophils Absolute Auto 4.1 X10*3/uL (2.0-8.3); Neutrophils Percent Auto 60.1 % (45-73); Platelet Count 344 X10*3/uL (160-400); Red Blood Count 4.29 X10*6/uL (4.20-5.50); White Blood Count 6.9 X10*3/uL (4.8-10.8)
[2021-02-20 11:32] VITALS: BP 125/79; PULSE 99
[2021-02-20] MEDS: LORazepam 1 MG TABLET PO ×2 (14:24→20:10)
[2021-02-20 20:09] VITALS: BP 103/64; PULSE 86
[2021-02-20] MEDS: Mirtazapine 15 MG TABLET PO (20:09)
[2021-02-20] MEDS: Prazosin HCL 5 MG CAPSULE PO (20:09)
[2021-02-20] MEDS: chlorproMAZINE HCl 100 MG TABLET PO (20:10)
[2021-02-20] MEDS: Lithium Carbonate ER 300 MG TABLET.ER 600 MG PO (20:10)
[2021-02-21] MEDS: traZODone HCL 50 MG TABLET PO (02:11)
[2021-02-21] MEDS: hydrOXYzine HCL 50 MG TABLET PO ×2 (02:11→11:23)
[2021-02-21] MEDS: DULoxetine HCl 60 MG CAPSULE.DR PO (08:50)
[2021-02-21] MEDS: Topiramate 25 MG TABLET PO ×2 (08:50→20:51)
[2021-02-21] MEDS: Loratadine 10 MG TABLET PO (08:50)
[2021-02-21] MEDS: Omeprazole 20 MG CAPSULE.DR PO (08:50)
[2021-02-21] MEDS: LORazepam 1 MG TABLET PO ×3 (08:50→20:50)
[2021-02-21] MEDS: Fluticasone Propionate 100 MCG BLST.W.DEV 2 PUFF INHALE ×2 (08:53→20:55)
[2021-02-21] MEDS: Nicotine 21 MG PATCH.TD24 TRANSDERMA (08:53)
[2021-02-21] MEDS: HaloperidoL 5 MG TABLET PO ×2 (11:23→18:52)
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
[2021-02-21 20:45] VITALS: BP 117/63; PULSE 83; TEMP 36.4
[2021-02-21 20:49] VITALS: BP 117/63; PULSE 83
[2021-02-21] MEDS: Mirtazapine 15 MG TABLET PO (20:49)
[2021-02-21] MEDS: Prazosin HCL 5 MG CAPSULE PO (20:49)
[2021-02-21] MEDS: Lithium Carbonate ER 300 MG TABLET.ER 600 MG PO (20:51)
[2021-02-21] MEDS: chlorproMAZINE HCl 100 MG TABLET PO (20:51)
[2021-02-22 06:00] VITALS: BP 114/73; PULSE 82; RESP 16; TEMP 36.4; O2SAT 97
[2021-02-22] MEDS: Omeprazole 20 MG CAPSULE.DR PO (06:37)
[2021-02-22] MEDS: Fluticasone Propionate 100 MCG BLST.W.DEV 2 PUFF INHALE ×2 (09:33→20:19)
[2021-02-22] MEDS: DULoxetine HCl 60 MG CAPSULE.DR PO (09:33)
[2021-02-22] MEDS: Loratadine 10 MG TABLET PO (09:33)
[2021-02-22] MEDS: Topiramate 25 MG TABLET PO ×2 (09:33→20:12)
[2021-02-22] MEDS: LORazepam 1 MG TABLET PO ×3 (09:33→20:12)
[2021-02-22] MEDS: Nicotine 21 MG PATCH.TD24 TRANSDERMA (09:36)
[2021-02-22 20:00] VITALS: BP 106/50; PULSE 84; TEMP 36.7
[2021-02-22 20:12] VITALS: BP 106/50; PULSE 84
[2021-02-22] MEDS: Prazosin HCL 5 MG CAPSULE PO (20:12)
[2021-02-22] MEDS: chlorproMAZINE HCl 100 MG TABLET PO (20:12)
[2021-02-22] MEDS: Lithium Carbonate ER 300 MG TABLET.ER 600 MG PO (20:13)
[2021-02-22] MEDS: Mirtazapine 15 MG TABLET PO (20:14)
--- NOTE | 2021-02-22 20:39 | HO.PSYCHPN ---
Subjective Subjective Date of Service: 02/22/21 Reason For Visit: Psychiatric illness Interim History: pt reports she's still feeling angry at her staff from yesterdays conversation and that her mood is so-so. She also reports struggling with thoughts though does not elaborate; she denies SI but still has urge to superficially cut and says she needs 1:1. Food Beverage Manager discussed this further with her and she said she's worried about disappointing staff regardless of whether she stays on a 1:1 or even if she comes off 1:1 but has to go back on... Food Beverage Manager reassured patient that that staff is appreciative of her efforts and that she need not worry either way to which she expressed thanks. Mental Status Exam Mental Status Exam Narrative: Pt is alert and oriented; behavior is cooperative, friendly and calm; patient is not in distress; dressed in neat, casual attire and well groomed; arms exposed revealing a plethora of scars on bl forearms from history of superficial cutting; 2 inch laceration on forehead, healing well; mood is described as so-so but affect pleasant; eye contact appropriate; Speech is normal rate, volume and prosody and not pressured; no psychomotor agitation/retardation present; thought process is organized, linear, logical and goal directed. Thought content is on getting stable and otherwise pertinent to relevant topics and without any delusional content, paranoid ideations or grandiosity; denies any SI/HI however remains with urge to superficially self harm. There is no evidence of perceptual disturbance and she denies an AVH. Patients insight and judgment appear intact. Diagnostics Vital Signs (24Hr): Vital Signs - 24 hr 02/21/21 20:45 02/21/21 20:49 02/22/21 06:00 Temperature 97.6 F 97.5 F Pulse Rate 83 83 82 Respiratory Rate 16 Blood Pressure 117/63 117/63 114/73 Pulse Oximetry 97 02/22/21 20:12 Temperature Pulse Rate 84 Respiratory Rate Blood Pressure 106/50 L Pulse Oximetry Body Mass Index 44.6 Labs Results: 02/20/21 09:21 02/16/21 19:08 Imaging Radiology Impressions: ITS Impressions Head CT 02/16/21 18:33 IMPRESSION: No CT evidence of acute intracranial pathology. Scalp hematoma and soft tissue swelling in the frontal region. Abdomen/Pelvis CT 02/18/21 22:43 IMPRESSION: No evidence of active gastrointestinal bleed. No acute finding in the abdomen or pelvis. No inflammatory change. Unchanged small pulmonary nodules, suggesting benign etiology. Medications Medications Current Medications Generic Name Dose Route Start Last Admin Trade Name Freq PRN Reason Stop Dose Admin Acetaminophen 650 mg 02/16/21 21:13 02/18/21 21:02 Acetaminophen 325 Mg Tablet PO 650 mg Q6H PRN Administration Pain, Mild (Pain Scale 1-3) Albuterol Sulfate 2 puff 02/16/21 20:45 Albuterol Sulfate 90 Mcg 8 Gm Inhaler INHALE Q6H PRN Wheezing Chlorpromazine HCl 100 mg 02/16/21 21:00 02/22/21 20:12 Chlorpromazine Hcl 100 Mg Tablet PO 100 mg BEDTIME SULEIMAN Administration Duloxetine HCl 60 mg 02/17/21 09:00 02/22/21 09:33 Duloxetine Hcl 60 Mg Capsule.Dr PO 60 mg DAILY SULEIMAN Administration Fluticasone Propionate 1 spray 02/16/21 21:00 02/22/21 20:17 Fluticasone Propionate Nasal 16 Gm [place] NOSTRIL-B Not Given BID SULEIMAN Fluticasone Propionate 2 puff 02/17/21 08:00 02/22/21 20:19 Fluticasone Propionate 100 Mcg Blst.W.Dev INHALE 2 puff RBID SULEIMAN Administration Haloperidol 5 mg 02/16/21 20:45 02/21/21 18:52 Haloperidol 5 Mg Tablet PO 5 mg BID PRN Administration psychosis Haloperidol Decanoate 50 mg 03/14/21 10:00 Haloperidol Decanoate 50 Mg/Ml Ampul IM Q28D SULEIMAN Hydroxyzine HCl 50 mg 02/16/21 20:45 02/21/21 11:23 Hydroxyzine Hcl 50 Mg Tablet PO 50 mg TID PRN Administration Anxiety [place] Carbonate 600 mg 02/16/21 21:00 02/22/21 20:13 [place] Carbonate Er 300 Mg Tablet.Er PO 600 mg BEDTIME SULEIMAN Administration Loratadine 10 mg 02/17/21 09:00 02/22/21 09:33 Loratadine 10 Mg Tablet PO 10 mg DAILY SULEIMAN Administration Lorazepam 1 mg 02/20/21 15:00 02/22/21 20:12 Lorazepam 1 Mg Tablet PO 1 mg TID SULEIMAN Administration Mirtazapine 15 mg 02/16/21 21:00 02/22/21 20:14 Mirtazapine 15 Mg Tablet PO 15 mg BEDTIME SULEIMAN Administration Nicotine 21 mg 02/17/21 09:00 02/22/21 09:36 Nicotine 21 Mg Patch.Td24 TRANSDERMA 21 mg DAILY SULEIMAN Administration Omeprazole 20 mg 02/17/21 06:30 02/22/21 06:37 Omeprazole 20 Mg Capsule.Dr PO 20 mg DAILY@0630 SULEIMAN Administration Ondansetron HCl 4 mg 02/16/21 20:45 Ondansetron Odt 4 Mg Tab.Rapdis TRANSLINGU Q8H PRN nausea and vomiting Prazosin HCl 5 mg 02/16/21 21:00 02/22/21 20:12 Prazosin Hcl 5 Mg Capsule PO 5 mg BEDTIME SULEIMAN Administration Protocol Sumatriptan Succinate 50 mg 02/16/21 20:45 Sumatriptan Succinate 50 Mg Tablet PO DAILY PRN Migraine Headache Topiramate 25 mg 02/16/21 21:00 02/22/21 20:12 Topiramate 25 Mg Tablet PO 25 mg BID SULEIMAN Administration Trazodone HCl 50 mg 02/16/21 20:45 02/21/21 02:11 Trazodone Hcl 50 Mg Tablet PO 50 mg BEDTIME PRN Administration Insomnia Allergies Allergies Allergy/AdvReac Type Severity Reaction Status Date / Time carbamazepine [From TEGRETOL] AdvReac Unknown NAUSEA & Verified 02/15/21 18:13 VOMITING Assessment & Plan Assessment & Plan (1) Recurrent major depression-severe: Qualifiers: Psychotic features: with psychotic features Qualified Code(s): F33.3 - Major depressive disorder, recurrent, severe with psychotic symptoms Status: Acute Code(s): F33.2 - Major depressive disorder, recurrent severe without psychotic features (2) Borderline personality disorder: Status: Acute Code(s): F60.3 - Borderline personality disorder (3) Chronic post-traumatic stress disorder (PTSD): Status: Acute Code(s): F43.12 - Post-traumatic stress disorder, chronic (4) Hematoma of frontal scalp: Status: Acute Code(s): S00.03XA - Contusion of scalp, initial encounter Assessment and Plan: IMPRESSION: Patient is a 35-year-old female with history of multiple psychiatric admissions, depression, PTSD and borderline personality disorder, who lives in a [place] [facility] and presents for dysregulated mood and suicidal ideation. patient reports that emotionally ability is subsiding, SI diminishing and depression abating; however she reports the urge to superficially self-harm and says she requires a one-to-one ( which apparently is typical for her admissions). Barrier to discharge is patients urge to self harm and need for ECT which cannot be done as an outpatient PLAN: Patient on CV, ECT planned for wednesday currently on one-to-one ( staff who know her well informed medical writer that patient always remains on a one-to-one throughout her admissions until discharge) H&H low on admission; rechecked and improved Dr. Silva agrees with ECT; will prep continue home medications at current doses will get lithium level and associated labs, including hemoglobin A1c and lipid panel Greater than 50% of the session was spent on counseling and/or coordination of care Reason for contiued inpatient stay Substantial Risk for: rapid decompensation
[2021-02-23 06:00] VITALS: BP 110/64; PULSE 75; RESP 16; TEMP 36.9; O2SAT 97
[2021-02-23] MEDS: Omeprazole 20 MG CAPSULE.DR PO (06:17)
[2021-02-23 07:39] LABS: Lithium 0.64 mmol/L (0.60-1.20)
[2021-02-23 07:51] LABS: Blood Urea Nitrogen 10 mg/dL (9-16); Cholesterol 182 mg/dL; Creatinine Clr Calc Pharmacy 128.4; Estimated Glomerular Filt Rate > 60; HDL Cholesterol 47 mg/dL; LDL Cholesterol Calculated 116 mg/dl; Triglycerides 97 mg/dL
[2021-02-23] MEDS: LORazepam 1 MG TABLET PO ×2 (09:13→14:59)
[2021-02-23] MEDS: Topiramate 25 MG TABLET PO (09:13)
[2021-02-23] MEDS: DULoxetine HCl 60 MG CAPSULE.DR PO (09:13)
[2021-02-23] MEDS: Loratadine 10 MG TABLET PO (09:13)
[2021-02-23] MEDS: Fluticasone Propionate 100 MCG BLST.W.DEV 2 PUFF INHALE ×2 (09:13→21:02)
[2021-02-23] MEDS: Nicotine 21 MG PATCH.TD24 TRANSDERMA (09:15)
--- NOTE | 2021-02-23 13:49 | PM.EVENT ---
Event Note Date of Service: 02/23/21 Event Note: Patient seen examined full note dictated Briefly patient was seen for ECT clearance patient can proceed with ECT has no medical contraindication at this time, follow standard ECT protocol.
--- NOTE | 2021-02-23 17:36 | P.PNPSI_ITS ---
Subjective Subjective Date of Service: 02/23/21 Reason For Visit: Psychiatric illness Interim History: pt reports mood is up and down No SI but remains with urge to self harm; that said she did not attempt any self harming past 2 days and she reports she's working really hard to resist despite frequent thoughts to do so. Pt says she was told she was having nightmares last night by 1:1 but does not remember them. She is hoping for ECT tomorrow and said she hopes it will help enabling her to return home. Mental Status Exam Mental Status Exam Narrative: Pt is alert and oriented; behavior is cooperative, friendly and calm; patient is not in distress; dressed in neat, casual attire and well groomed; arms exposed revealing a plethora of scars on bl forearms from history of superficial cutting; 2 inch laceration on forehead, healing well; mood is described as up and down affect pleasant; eye contact appropriate; Speech is normal rate, volume and prosody and not pressured; no psychomotor agitation/retardation present; thought process is organized, linear, logical and goal directed. Thought content is on getting stable and otherwise pertinent to relevant topics and without any delusional content, paranoid ideations or grandiosity; denies any SI/HI however remains with urge to superficially self harm. There is no evidence of perceptual disturbance and she denies an AVH. P atients insight and judgment appear intact. Diagnostics Vital Signs (24Hr): Vital Signs - 24 hr 02/22/21 20:00 02/22/21 20:12 02/23/21 06:00 Temperature 98.1 F 98.4 F Pulse Rate 84 84 75 Respiratory Rate 16 Blood Pressure 106/50 L 106/50 L 110/64 Pulse Oximetry 97 Body Mass Index 44.6 Labs Results: 02/20/21 09:21 02/23/21 07:19 Labs: Laboratory Results - last 48 hr 02/23/21 02/23/21 07:19 07:19 BUN 10 D Creatinine 0.78 Estim Creat Clear Calc 128.4 Estimated GFR > 60 Triglycerides 97 Cholesterol 182 LDL Cholesterol, Calc 116 HDL Cholesterol 47 [place] 0.64 Imaging Radiology Impressions: ITS Impressions Head CT 02/16/21 18:33 IMPRESSION: No CT evidence of acute intracranial pathology. Scalp hematoma and soft tissue swelling in the frontal region. Abdomen/Pelvis CT 02/18/21 22:43 IMPRESSION: No evidence of active gastrointestinal bleed. No acute finding in the abdomen or pelvis. No inflammatory change. Unchanged small pulmonary nodules, suggesting benign etiology. Medications Medications Current Medications Generic Name Dose Route Start Last Admin Trade Name Freq PRN Reason Stop Dose Admin Acetaminophen 650 mg 02/16/21 21:13 02/18/21 21:02 Acetaminophen 325 Mg Tablet PO 650 mg Q6H PRN Administration Pain, Mild (Pain Scale 1-3) Albuterol Sulfate 2 puff 02/16/21 20:45 Albuterol Sulfate 90 Mcg 8 Gm Inhaler INHALE Q6H PRN Wheezing Chlorpromazine HCl 100 mg 02/16/21 21:00 02/22/21 20:12 Chlorpromazine Hcl 100 Mg Tablet PO 100 mg BEDTIME SULEIMAN Administration Duloxetine HCl 60 mg 02/17/21 09:00 02/23/21 09:13 Duloxetine Hcl 60 Mg Capsule.Dr PO 60 mg DAILY SULEIMAN Administration Fluticasone Propionate 1 spray 02/16/21 21:00 02/23/21 09:13 Fluticasone Propionate Nasal 16 Gm [place] NOSTRIL-B Not Given BID SULEIMAN Fluticasone Propionate 2 puff 02/17/21 08:00 02/23/21 09:13 Fluticasone Propionate 100 Mcg Blst.W.Dev INHALE 2 puff RBID SULEIMAN Administration Haloperidol 5 mg 02/16/21 20:45 02/21/21 18:52 Haloperidol 5 Mg Tablet PO 5 mg BID PRN Administration psychosis Haloperidol Decanoate 50 mg 03/14/21 10:00 Haloperidol Decanoate 50 Mg/Ml Ampul IM Q28D SULEIMAN Hydroxyzine HCl 50 mg 02/16/21 20:45 02/21/21 11:23 Hydroxyzine Hcl 50 Mg Tablet PO 50 mg TID PRN Administration Anxiety [place] Carbonate 600 mg 02/16/21 21:00 02/22/21 20:13 [place] Carbonate Er 300 Mg Tablet.Er PO 600 mg BEDTIME SULEIMAN Administration Loratadine 10 mg 02/17/21 09:00 02/23/21 09:13 Loratadine 10 Mg Tablet PO 10 mg DAILY SULEIMAN Administration Lorazepam 1 mg 02/20/21 15:00 02/23/21 14:59 Lorazepam 1 Mg Tablet PO 1 mg TID SULEIMAN Administration Mirtazapine 15 mg 02/16/21 21:00 02/22/21 20:14 Mirtazapine 15 Mg Tablet PO 15 mg BEDTIME SULEIMAN Administration Nicotine 21 mg 02/17/21 09:00 02/23/21 09:15 Nicotine 21 Mg Patch.Td24 TRANSDERMA 21 mg DAILY SULEIMAN Administration Omeprazole 20 mg 02/17/21 06:30 02/23/21 06:17 Omeprazole 20 Mg Capsule.Dr PO 20 mg DAILY@0630 SULEIMAN Administration Ondansetron HCl 4 mg 02/16/21 20:45 Ondansetron Odt 4 Mg Tab.Rapdis TRANSLINGU Q8H PRN nausea and vomiting Prazosin HCl 5 mg 02/16/21 21:00 02/22/21 20:12 Prazosin Hcl 5 Mg Capsule PO 5 mg BEDTIME SULEIMAN Administration Protocol Sumatriptan Succinate 50 mg 02/16/21 20:45 Sumatriptan Succinate 50 Mg Tablet PO DAILY PRN Migraine Headache Topiramate 25 mg 02/16/21 21:00 02/23/21 09:13 Topiramate 25 Mg Tablet PO 25 mg BID SULEIMAN Administration Trazodone HCl 50 mg 02/16/21 20:45 02/21/21 02:11 Trazodone Hcl 50 Mg Tablet PO 50 mg BEDTIME PRN Administration Insomnia Allergies Allergies Allergy/AdvReac Type Severity Reaction Status Date / Time carbamazepine [From TEGRETOL] AdvReac Unknown NAUSEA & Verified 02/15/21 18:13 VOMITING Assessment & Plan Assessment & Plan (1) Recurrent major depression-severe: Qualifiers: Psychotic features: with psychotic features Qualified Code(s): F33.3 - Major depressive disorder, recurrent, severe with psychotic symptoms Status: Acute Code(s): F33.2 - Major depressive disorder, recurrent severe without psychotic features (2) Borderline personality disorder: Status: Acute Code(s): F60.3 - Borderline personality disorder (3) Chronic post-traumatic stress disorder (PTSD): Status: Acute Code(s): F43.12 - Post-traumatic stress disorder, chronic (4) Hematoma of frontal scalp: Status: Acute Code(s): S00.03XA - Contusion of scalp, initial encounter Assessment and Plan: IMPRESSION: Patient is a 35-year-old female with history of multiple psychiatric admissi ons, depression, PTSD and borderline personality disorder, who [facility] and presents for dysregulated mood and suicidal ideation. patient reports that emotionally ability is subsiding, SI diminishing and depression abating; however she reports the urge to superficially self-harm and says she requires a one-to-one ( which apparently is typical for her admissions). Barrier to discharge is patients urge to self harm and need for ECT which cannot be done as an outpatient PLAN: Patient on CV, ECT planned for wednesday; pt cleared currently on one-to-one ( staff who know her well informed comic book writer that patient always remains on a one-to-one throughout her admissions until discharge) H&H low on admission; rechecked and improved Dr. Silva agrees with ECT; will prep continue home medications at current doses Labs, bun/cr, lithium level WNL hemoglobin A1c and lipid panel pending Greater than 50% of the session was spent on counseling and/or coordination of care Reason for contiued inpatient stay Substantial Risk for: med/psych decompensation
[2021-02-23 18:00] VITALS: BP 96/66; PULSE 89; TEMP 36.2
[2021-02-23 19:01] LABS: MANUAL DIFF FLAG NO
[2021-02-23 19:02] LABS: Basophils Percent Auto 0.1 % (0-2); Eosinophils Percent Auto 0.1 % (0-4); Hematocrit 33.6 % (37-47); Hemoglobin 10.6 g/dl (12.0-16.0); Imm Gran Abs Auto 0.03 X10*3/uL (0.00-0.03); Imm Gran Pct Auto 0.3 % (0.0-0.4); Lymphocytes Absolute Auto 2.7 X10*3/uL (1.2-4.9); Lymphocytes Percent Auto 28.6 % (20-40); Mean Corpuscular HGB Conc 31.5 g/dl (31.0-35.0); Mean Corpuscular Hemoglobin 25.4 pg (27.0-33.0); Mean Corpuscular Volume 80.6 fL (80-98); Mean Platelet Volume 10.7 fL (9.4-12.3); Monocytes Absolute Auto 0.6 X10*3/uL (0.1-1.2); Monocytes Percent Auto 6.5 % (2-11); Neutrophils Absolute Auto 6.1 X10*3/uL (2.0-8.3); Neutrophils Percent Auto 64.4 % (45-73); Platelet Count 347 X10*3/uL (160-400); Red Blood Count 4.17 X10*6/uL (4.20-5.50); Red Cell Distribution Width 16.8 % (11.0-16.0); White Blood Count 9.5 X10*3/uL (4.8-10.8)
[2021-02-23 20:57] VITALS: BP 96/66; PULSE 89
[2021-02-23] MEDS: Prazosin HCL 5 MG CAPSULE PO (20:57)
[2021-02-23] MEDS: Mirtazapine 15 MG TABLET PO (21:01)
[2021-02-23] MEDS: chlorproMAZINE HCl 100 MG TABLET PO (21:01)
--- NOTE | 2021-02-23 21:01 | CONS_ITS ---
DATE OF SERVICE: 02/23/2021 CONSULTING PHYSICIAN: Maurizio Hernández MD REASON FOR CONSULTATION: Medical clearance for ECT treatment. HISTORY OF PRESENTING ILLNESS: This is a 35-year-old female patient well known to hospitalist service with past medical history of asthma, smoking, depression, PTSD, admitted to due to worsening depression without psychotic features. Due to persistent symptoms of depression and suicidal ideation, she has been scheduled to undergo ECT treatment. The patient at the present time offers no acute complaints of headache, lightheadedness, and dizziness. She denies shortness of breath. No cough. No chest tightness. She denies any nausea or vomiting. Has no urinary symptoms. Has no weakness or numbness. She has had ECT in the past. The patient had a head CT done on February 16 due to head injury. The CT showed no evidence of acute intracranial pathology. It showed scalp hematoma and soft tissue swelling in the frontal region. EKG obtained on February 19 shows no abnormal rhythm. REVIEW OF SYSTEMS: GENERAL: She denies fever, chills. CVS: No chest pain, no palpitation. RESPIRATORY: No shortness of breath. No cough. No chest tightness. GI: She denies nausea, vomiting, abdominal pain. NEURO: She denies weakness, numbness, or headache. All other systems are reviewed and are negative. PAST MEDICAL HISTORY: Significant for history of anxiety/depression, history of borderline personality disorder, history of asthma, history of intentional self-harm, history of PTSD, history of recurrent admission to with major depression, self-harming behavior, and suicidal ideation. SOCIAL HISTORY: The patient ambulates with no assistive device. Denies alcohol abuse, is a smoker. CURRENT MEDICATIONS: Claritin 10 mg daily. Thorazine 100 mg at bedtime. Cymbalta 60 mg daily. Flonase 1 spray nostril twice daily. Haldol 50 mg IM every 28 days. [place] 600 mg at bedtime. Remeron 15 mg at bedtime. Nicotine patch 21 mg daily, omeprazole 20 mg daily. Minipress 5 mg at bedtime. Topamax 25 mg b.i.d., Flovent 2 puffs inhaler b.i.d., lorazepam 1 mg by mouth t.i.d. PHYSICAL EXAMINATION: GENERAL: The patient is sitting comfortably on bed, in no acute distress. CURRENT VITALS: BP 110/64 with a pulse of 75, respiratory rate 16. She is afebrile with a finger oximetry 97 on room air. NECK: Supple. No lymphadenopathy. CARDIOVASCULAR: Regular rate and rhythm. No pedal edema. LUNGS: Clear to auscultation. No respiratory distress. No wheeze, no rhonchi. ABDOMEN: Soft, nontender. Bowel sounds audible. No guarding or rigidity. NEUROLOGIC: She is alert, oriented x3. ASSESSMENT AND PLAN: A 35-year-old female with major depression with suicidal ideation, history of posttraumatic stress disorder, borderline self disorder, history of self-injury behavior, is planned for ECT. At present, the patient's CT head, EKG, and recent electrolytes are unremarkable. The patient can proceed with ECT, has no medical contraindication at this time. Continue to follow standard ECT protocol. In regard to her chronic medical issues including asthma, she has no acute exacerbation. Recommend to continue home inhalers. She has been strongly advised to abstain from smoking. Continue nicotine patch. Thank you for allowing us to participate in the care of this patient. Call us with any questions or concerns. MD LIZETTE [place]/JAMESON / [phone] MTDD
[2021-02-23] MEDS: hydrOXYzine HCL 50 MG TABLET PO (21:08)
[2021-02-23] MEDS: HaloperidoL 5 MG TABLET PO (21:08)
[2021-02-24 02:49] LABS: Estimated Average Glucose 97 mg/dL
[2021-02-24 06:49] VITALS: BP 121/66; PULSE 84; RESP 18; TEMP 36.4; O2SAT 92
--- NOTE | 2021-02-24 09:44 | P.PNPSI_ITS ---
Subjective Subjective Date of Service: 02/24/21 Reason For Visit: Psychiatric illness Interim History: Patient was doing well until this morning when she was told she would not be able to get ECT because she engaged in head banging last night. Patient was very upset because she denied that any head banging took place, that she has been safe and refrain from any self-harm over the weekend. Patient started to cry and hit the wall with her hand, feeling that she was being treated unfairly. Patient was able to calm down and though crying, apologized to staff for being disruptive. She explained that she has since been without her nighttime Ativan, Topamax or lithium and has not had her scheduled Ativan this morning; furthermore she has not eaten or had anything to drink in prepara tion for ECT, something she has been waiting for since her admission. Also patient felt like she was just told she could not have ECT due to self-harm report and never herself asked about this report. She also happens to be near her menses, which she says is a time of emotional dysregulation. Manager Of Pharmacy emphasized with patient and agreed that this situation is definitely a tough 1; magnetic tape typewriter operator reinforced the need to remain in good behavioral control even when emotionally upset, to which patient agreed and said she was trying. Patient was able to stay calm and accepted the situation. She continued to talk as well as listen and remained thus forward in good behavioral control. Later on patient was informed she would in fact be able to have ECT Mental Status Exam Mental Status Exam Narrative: Pt is alert and oriented; behavior angry, crying, hitting wall with hand; dressed in hospital gown; mood is described as angry...upset affect congruent; eye contact congruent; Speech is yelling but able to calm down to talking; thought process is organized, linear, logical and goal directed. Though t content is on handling upsetting news and processing; it remains pertinent to relevant topics and without any delusional content, paranoid ideations or grandiosity; denies any SI/HI however remains with intermittent urge to superficially self harm. There is no evidence of perceptual disturbance and she denies an AVH. Patients insight and judgment appear impaired, but improving. Diagnostics Vital Signs (24Hr): Vital Signs - 24 hr 02/23/21 18:00 02/23/21 20:57 02/24/21 06:49 Temperature 97.2 F 97.6 F Pulse Rate 89 89 84 Respiratory Rate 18 Blood Pressure 96/66 96/66 121/66 Pulse Oximetry 92 Body Mass Index 44.6 Labs Results: 02/23/21 18:56 02/23/21 07:19 Labs: Laboratory Results - last 48 hr 02/23/21 02/23/21 02/23/21 07:19 07:19 07:19 WBC RBC Hgb Hct MCV MCH MCHC RDW Plt Count MPV Immature Gran % (Auto) Neut % (Auto) Lymph % (Auto) [place] % (Auto) Eos % (Auto) Baso % (Auto) Lymph # (Auto) [place] # (Auto) Eos # (Auto) Baso # (Auto) Abs Immat Gran (auto) Absolute Neuts (auto) Absolute Nucleated RBC Nucleated RBC % (auto) BUN 10 D Creatinine 0.78 Estim Creat Clear Calc 128.4 Estimated GFR > 60 Estimat Average Glucose 97 Hemoglobin A1c % 5.0 Triglycerides 97 Cholesterol 182 LDL Cholesterol, Calc 116 HDL Cholesterol 47 [place] 0.64 02/23/21 18:56 WBC 9.5 RBC 4.17 L Hgb 10.6 L Hct 33.6 L MCV 80.6 MCH 25.4 L MCHC 31.5 RDW 16.8 H Plt Count 347 MPV 10.7 Immature Gran % (Auto) 0.3 Neut % (Auto) 64.4 Lymph % (Auto) 28.6 [place] % (Auto) 6.5 Eos % (Auto) 0.1 Baso % (Auto) 0.1 Lymph # (Auto) 2.7 [place] # (Auto) 0.6 Eos # (Auto) 0.0 Baso # (Auto) 0.0 Abs Immat Gran (auto) 0.03 Absolute Neuts (auto) 6.1 Absolute Nucleated RBC 0.000 Nucleated RBC % (auto) 0.0 BUN Creatinine Estim Creat Clear Calc Estimated GFR Estimat Average Glucose Hemoglobin A1c % Triglycerides Cholesterol LDL Cholesterol, Calc HDL Cholesterol [place] [facility] Radiology Impressions: ITS Impressions Head CT 02/16/21 18:33 IMPRESSION: No CT evidence of acute intracranial pathology. Scalp hematoma and soft tissue swelling in the frontal region. Abdomen/Pelvis CT 02/18/21 22:43 IMPRESSION: No evidence of active gastrointestinal bleed. No acute finding in the abdomen or pelvis. No inflammatory change. Unchanged small pulmonary nodules, suggesting benign etiology. Medications Medications Current Medications Generic Name Dose Route Start Last Admin Trade Name Freq PRN Reason Stop Dose Admin Acetaminophen 650 mg 02/16/21 21:13 02/18/21 21:02 Acetaminophen 325 Mg Tablet PO 650 mg Q6H PRN Administration Pain, Mild (Pain Scale 1-3) Albuterol Sulfate 2 puff 02/16/21 20:45 Albuterol Sulfate 90 Mcg 8 Gm Inhaler INHALE Q6H PRN Wheezing Chlorpromazine HCl 100 mg 02/16/21 21:00 02/23/21 21:01 Chlorpromazine Hcl 100 Mg Tablet PO 100 mg BEDTIME SULEIMAN Administration Duloxetine HCl 60 mg 02/17/21 09:00 02/23/21 09:13 Duloxetine Hcl 60 Mg Capsule.Dr PO 60 mg DAILY SULEIMAN Administration Fluticasone Propionate 1 spray 02/16/21 21:00 02/23/21 21:04 Fluticasone Propionate Nasal 16 Gm [place] NOSTRIL-B Not Given BID SULEIMAN Fluticasone Propionate 2 puff 02/17/21 08:00 02/23/21 21:02 Fluticasone Propionate 100 Mcg Blst.W.Dev INHALE 2 puff RBID SULEIMAN Administration Haloperidol 5 mg 02/16/21 20:45 02/23/21 21:08 Haloperidol 5 Mg Tablet PO 5 mg BID PRN Administration psychosis Haloperidol Decanoate 50 mg 03/14/21 10:00 Haloperidol Decanoate 50 Mg/Ml Ampul IM Q28D SULEIMAN Hydroxyzine HCl 50 mg 02/16/21 20:45 02/23/21 21:08 Hydroxyzine Hcl 50 Mg Tablet PO 50 mg TID PRN Administration Anxiety [place] Carbonate 600 mg 02/16/21 21:00 02/23/21 18:58 [place] Carbonate Er 300 Mg Tablet.Er PO Not Given BEDTIME SULEIMAN Loratadine 10 mg 02/17/21 09:00 02/23/21 09:13 Loratadine 10 Mg Tablet PO 10 mg DAILY SULEIMAN Administration Lorazepam 1 mg 02/20/21 15:00 02/23/21 18:58 Lorazepam 1 Mg Tablet PO Not Given TID SULEIMAN Mirtazapine 15 mg 02/16/21 21:00 02/23/21 21:01 Mirtazapine 15 Mg Tablet PO 15 mg BEDTIME SULEIMAN Administration Nicotine 21 mg 02/17/21 09:00 02/23/21 09:15 Nicotine 21 Mg Patch.Td24 TRANSDERMA 21 mg DAILY SULEIMAN Administration Omeprazole 20 mg 02/17/21 06:30 02/23/21 06:17 Omeprazole 20 Mg Capsule.Dr PO 20 mg DAILY@0630 SULEIMAN Administration Ondansetron HCl 4 mg 02/16/21 20:45 Ondansetron Odt 4 Mg Tab.Rapdis TRANSLINGU Q8H PRN nausea and vomiting Prazosin HCl 5 mg 02/16/21 21:00 02/23/21 20:57 Prazosin Hcl 5 Mg Capsule PO 5 mg BEDTIME SULEIMAN Administration Protocol Sumatriptan Succinate 50 mg 02/16/21 20:45 Sumatriptan Succinate 50 Mg Tablet PO DAILY PRN Migraine Headache Topiramate 25 mg 02/16/21 21:00 02/23/21 18:59 Topiramate 25 Mg Tablet PO Not Given BID SULEIMAN Trazodone HCl 50 mg 02/16/21 20:45 02/21/21 02:11 Trazodone Hcl 50 Mg Tablet PO 50 mg BEDTIME PRN Administration Insomnia Allergies Allergies Allergy/AdvReac Type Severity Reaction Status Date / Time carbamazepine [From TEGRETOL] AdvReac Unknown NAUSEA & Verified 02/15/21 18:13 VOMITING Assessment & Plan Assessment & Plan (1) Recurrent major depression-severe: Qualifiers: Psychotic features: with psychotic features Qualified Code(s): F33.3 - Major depressive disorder, recurrent, severe with psychotic symptoms Status: Acute Code(s): F33.2 - Major depressive disorder, recurrent severe without psychotic features (2) Borderline personality disorder: Status: Acute Code(s): F60.3 - Borderline personality disorder (3) Chronic post-traumatic stress disorder (PTSD): Status: Acute Code(s): F43.12 - Post-traumatic stress disorder, chronic (4) Hematoma of frontal scalp: Status: Acute Code(s): S00.03XA - Contusion of scalp, initial encounter Assessment and Plan: IMPRESSION: Patient is a 35-year-old female with history of multiple psychiatric admissi ons, depression, PTSD and borderline personality disorder, who lives in a [facility] and presents for dysregulated mood and suicidal ideation. patient reports that emotionally ability is subsiding, SI diminishing and depression abating; however she reports the urge to superficially self-harm and says she requires a one-to-one ( which apparently is typical for her admissions). Barrier to discharge is patients urge to self harm and need for ECT which cannot be done as an outpatient PLAN: Patient on CV, ECT planned for wednesday; pt cleared currently on one-to-one ( staff who know her well informed magnetic tape typewriter operator that patient always remains on a one-to-one throughout her admissions until discharge) H&H low on admission; rechecked and improved; remaining stable Dr. Silva agrees with ECT; continue home medications at current doses hemoglobin A1c and lipid panel pending Greater than 50% of the session was spent on counseling and/or coordination of care Reason for contiued inpatient stay Substantial Risk for: rapid decompensation
[2021-02-24] MEDS: Acetaminophen 325 MG TABLET 650 MG PO (16:59)
[2021-02-24] MEDS: HaloperidoL 5 MG TABLET PO ×2 (16:59→21:20)
[2021-02-24 21:10] VITALS: BP 125/62; PULSE 97; TEMP 37.1
[2021-02-24 21:17] VITALS: BP 125/62; PULSE 97
[2021-02-24] MEDS: Prazosin HCL 5 MG CAPSULE PO (21:17)
[2021-02-24] MEDS: chlorproMAZINE HCl 100 MG TABLET PO (21:18)
[2021-02-24] MEDS: Mirtazapine 15 MG TABLET PO (21:19)
[2021-02-24] MEDS: Fluticasone Propionate 100 MCG BLST.W.DEV 2 PUFF INHALE (21:28)
[2021-02-25] VITALS (11 sets, daily range): BP systolic 101–155; BP diastolic 62–94; PULSE 75–103; RESP 16–20; TEMP 36.1–36.7; O2SAT 93–99; BMI 44.6
[2021-02-25] MEDS: hydrOXYzine HCL 50 MG TABLET PO (00:15)
[2021-02-25] MEDS: traZODone HCL 50 MG TABLET PO (00:15)
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
--- NOTE | 2021-02-25 10:16 | MHC.SHP ---
Pre-Procedural Eval Section A Date of Service: 02/25/21 The patient is an INPATIENT: Yes Changes since office visit: No Cold of Flu in the past 2 weeks, No New Medical Problems, No Changes in Medication and No Patient answered all questions The History & Physical has been completed within 30 days and I have reviewed it.: Yes Section B Chief Complaint: Psychiatric illness Allergies: Allergies Allergy/AdvReac Type Severity Reaction Status Date / Time carbamazepine [From TEGRETOL] AdvReac Unknown NAUSEA & Verified 02/15/21 18:13 VOMITING Plan I have reviewed the history and physical and performed a pertinent physical examination on my patient. No changes have occurred unless specified.
--- NOTE | 2021-02-25 10:17 | HO.ECTPROC ---
ECT Procedure Note Diagnosis/Treatment Date of Service: 02/25/21 Diagnosis: Bipolar disorder Treatment: Maintenance Interval Clinical Notes: Patient will be discharged soon, responds very well to ECT. ECT Settings Device: THYMATRON DGx Electrode Placement: Right Unilateral Program/Pulse Width: 0.50 Energy Percent: 100 Seizure Duration By EEG (in seconds): 37 By Motor Observation (in seconds): 11 Medications Administration General Anesthetic: Etomidate (12) Muscle Relaxant: Succinylcholine (100) Ancillary Medications Analgesics: Torodol - Pre ECT Anti-emetics: Zofran - Pre ECT Airway Management Airway Management: Bag Mask Ventilation Treatment Recommendations No Changes Recommended: No change Pt Tolerated Procedure w/o Issue: Yes
[2021-02-25] MEDS: Loratadine 10 MG TABLET PO (12:20)
[2021-02-25] MEDS: DULoxetine HCl 60 MG CAPSULE.DR PO (12:20)
[2021-02-25] MEDS: Topiramate 25 MG TABLET PO ×2 (12:21→20:05)
[2021-02-25] MEDS: Fluticasone Propionate 100 MCG BLST.W.DEV 2 PUFF INHALE ×2 (12:21→20:06)
[2021-02-25] MEDS: Omeprazole 20 MG CAPSULE.DR PO (12:23)
[2021-02-25] MEDS: Nicotine 21 MG PATCH.TD24 TRANSDERMA (12:25)
[2021-02-25] MEDS: LORazepam 1 MG TABLET PO (14:49)
--- NOTE | 2021-02-25 17:11 | HO.PSYCHPN ---
Subjective Subjective Date of Service: 02/25/21 Reason For Visit: Psychiatric illness Subjective Notes: Conditional Voluntary Medical Problems Affecting Mental Status: No Interim History: pt feeling better Medication Compliance: Yes Attending Groups: Intermittent Mental Status Exam Mental Status Exam Narrative: Pt is alert and oriented; behavior is cooperative, friendly and calm; patient is not in distress; dressed in neat, casual attire and well groomed; mood is described as good...great affect congruent; eye contact appropriate; Speech is normal rate, volume and prosody and not pressured; no psychomotor agitation/retardation present; thought process is organized, linear, logical and goal directed. Thought content is on feeling good and returning home, staying stable and pertinent to relevant topics and without any delusional content, paranoid ideations or grandiosity; denies any SI/HI; denies any urges to superficially self harm. There is no evidence of perceptual disturbance and she denies an AVH. Patients insight and judgment appear intact. Diagnostics Vital Signs (24Hr): Vital Signs - 24 hr 02/24/21 21:10 02/24/21 21:17 02/25/21 06:00 Temperature 98.7 F 97.5 F Pulse Rate 97 97 103 H Respiratory Rate 20 Blood Pressure 125/62 125/62 101/67 Pulse Oximetry 97 02/25/21 09:04 02/25/21 11:07 02/25/21 11:12 Temperature 97 F 97.7 F Pulse Rate 93 91 86 Respiratory Rate 16 16 16 Blood Pressure 148/88 H 148/90 H 140/91 H Pulse Oximetry 99 97 96 02/25/21 11:17 02/25/21 11:22 02/25/21 11:37 Temperature Pulse Rate 96 90 94 Respiratory Rate 16 16 16 Blood Pressure 113/94 H 152/88 H 153/88 H Pulse Oximetry 98 93 97 02/25/21 12:01 02/25/21 12:26 Temperature 97.9 F 98.0 F Pulse Rate 85 85 Respiratory Rate 16 18 Blood Pressure 153/88 H 155/76 H Pulse Oximetry 98 99 Body Mass Index 44.6 Labs Results: 02/23/21 18:56 02/23/21 07:19 Labs: Laboratory Results - last 48 hr 02/23/21 02/23/21 07:19 18:56 WBC 9.5 RBC 4.17 L Hgb 10.6 L Hct 33.6 L MCV 80.6 MCH 25.4 L MCHC 31.5 RDW 16.8 H Plt Count 347 MPV 10.7 Immature Gran % (Auto) 0.3 Neut % (Auto) 64.4 Lymph % (Auto) 28.6 [place] % (Auto) 6.5 Eos % (Auto) 0.1 Baso % (Auto) 0.1 Lymph # (Auto) 2.7 [place] # (Auto) 0.6 Eos # (Auto) 0.0 Baso # (Auto) 0.0 Abs Immat Gran (auto) 0.03 Absolute Neuts (auto) 6.1 Absolute Nucleated RBC 0.000 Nucleated RBC % (auto) 0.0 Estimat Average Glucose 97 Hemoglobin A1c % 5.0 Imaging Radiology Impressions: ITS Impressions Head CT 02/16/21 18:33 IMPRESSION: No CT evidence of acute intracranial pathology. Scalp hematoma and soft tissue swelling in the frontal region. Abdomen/Pelvis CT 02/18/21 22:43 IMPRESSION: No evidence of active gastrointestinal bleed. No acute finding in the abdomen or pelvis. No inflammatory change. Unchanged small pulmonary nodules, suggesting benign etiology. Medications Medications Current Medications Generic Name Dose Route Start Last Admin Trade Name Freq PRN Reason Stop Dose Admin Acetaminophen 650 mg 02/16/21 21:13 02/24/21 16:59 Acetaminophen 325 Mg Tablet PO 650 mg Q6H PRN Administration Pain, Mild (Pain Scale 1-3) Albuterol Sulfate 2 puff 02/16/21 20:45 Albuterol Sulfate 90 Mcg 8 Gm Inhaler INHALE Q6H PRN Wheezing Chlorpromazine HCl 100 mg 02/16/21 21:00 02/24/21 21:18 Chlorpromazine Hcl 100 Mg Tablet PO 100 mg BEDTIME SULEIMAN Administration Duloxetine HCl 60 mg 02/17/21 09:00 02/25/21 12:20 Duloxetine Hcl 60 Mg Capsule.Dr PO 60 mg DAILY SULEIMAN Administration Fluticasone Propionate 1 spray 02/16/21 21:00 02/25/21 12:21 Fluticasone Propionate Nasal 16 Gm [place] NOSTRIL-B Not Given BID SULEIMAN Fluticasone Propionate 2 puff 02/17/21 08:00 02/25/21 12:21 Fluticasone Propionate 100 Mcg Blst.W.Dev INHALE 2 puff RBID SULEIMAN Administration Haloperidol 5 mg 02/16/21 20:45 02/24/21 21:20 Haloperidol 5 Mg Tablet PO 5 mg BID PRN Administration psychosis Haloperidol Decanoate 50 mg 03/14/21 10:00 Haloperidol Decanoate 50 Mg/Ml Ampul IM Q28D SULEIMAN Hydroxyzine HCl 50 mg 02/16/21 20:45 02/25/21 00:15 Hydroxyzine Hcl 50 Mg Tablet PO 50 mg TID PRN Administration Anxiety [place] Carbonate 600 mg 02/16/21 21:00 02/24/21 21:36 [place] Carbonate Er 300 Mg Tablet.Er PO Not Given BEDTIME SULEIMAN Loratadine 10 mg 02/17/21 09:00 02/25/21 12:20 Loratadine 10 Mg Tablet PO 10 mg DAILY SULEIMAN Administration Mirtazapine 15 mg 02/16/21 21:00 02/24/21 21:19 Mirtazapine 15 Mg Tablet PO 15 mg BEDTIME SULEIMAN Administration Nicotine 21 mg 02/17/21 09:00 02/25/21 12:25 Nicotine 21 Mg Patch.Td24 TRANSDERMA 21 mg DAILY SULEIMAN Administration Omeprazole 20 mg 02/17/21 06:30 02/25/21 12:23 Omeprazole 20 Mg Capsule.Dr PO 20 mg DAILY@0630 SULEIMAN Administration Ondansetron HCl 4 mg 02/16/21 20:45 Ondansetron Odt 4 Mg Tab.Rapdis TRANSLINGU Q8H PRN nausea and vomiting Prazosin HCl 5 mg 02/16/21 21:00 02/24/21 21:17 Prazosin Hcl 5 Mg Capsule PO 5 mg BEDTIME SULEIMAN Administration Protocol Sumatriptan Succinate 50 mg 02/16/21 20:45 Sumatriptan Succinate 50 Mg Tablet PO DAILY PRN Migraine Headache Topiramate 25 mg 02/16/21 21:00 02/25/21 12:21 Topiramate 25 Mg Tablet PO 25 mg BID SULEIMAN Administration Trazodone HCl 50 mg 02/16/21 20:45 02/25/21 00:15 Trazodone Hcl 50 Mg Tablet PO 50 mg BEDTIME PRN Administration Insomnia Allergies Allergies Allergy/AdvReac Type Severity Reaction Status Date / Time carbamazepine [From TEGRETOL] AdvReac Unknown NAUSEA & Verified 02/15/21 18:13 VOMITING Assessment & Plan Assessment & Plan (1) Recurrent major depression-severe: Qualifiers: Psychotic features: with psychotic features Qualified Code(s): F33.3 - Major depressive disorder, recurrent, severe with psychotic symptoms Status: Chronic Code(s): F33.2 - Major depressive disorder, recurrent severe without psychotic features Assessment and Plan: cont outpt ect (2) Borderline personality disorder: Status: Chronic Code(s): F60.3 - Borderline personality disorder Assessment and Plan: grp home therapy (3) Chronic post-traumatic stress disorder (PTSD): Status: Chronic Code(s): F43.12 - Post-traumatic stress disorder, chronic (4) Hematoma of frontal scalp: Status: Resolved Code(s): S00.03XA - Contusion of scalp, initial encounter Assessment and Plan: IMPRESSION: Patient is a 35-year-old female with history of multiple psychiatric admissions, depression, PTSD and borderline personality disorder, who lives in a residential and presents for dysregulated mood and suicidal ideation. patient reports that emotionally ability is subsiding, SI diminishing and depression abating; however she reports the urge to superficially self-harm and says she requires a one-to-one ( which apparently is typical for her admissions). Barrier to discharge is patients urge to self harm and need for ECT which cannot be done as an outpatient PLAN: Patient on CV, ECT planned for wednesday; pt cleared currently on one-to-one ( staff who know her well informed jingle writer that patient always remains on a one-to-one throughout her admissions until discharge) H&H low on admission; rechecked and improved; remaining stable Dr. Silva agrees with ECT; continue home medications at current doses hemoglobin A1c and lipid panel pending Greater than 50% of the session was spent on counseling and/or coordination of care Reason for contiued inpatient stay Substantial Risk for: harm to self and rapid decompensation
[2021-02-25] MEDS: Mirtazapine 15 MG TABLET PO (20:05)
[2021-02-25] MEDS: HaloperidoL 5 MG TABLET PO (20:05)
[2021-02-25] MEDS: Prazosin HCL 5 MG CAPSULE PO (20:05)
[2021-02-25] MEDS: Lithium Carbonate ER 300 MG TABLET.ER 600 MG PO (20:05)
[2021-02-25] MEDS: chlorproMAZINE HCl 100 MG TABLET PO (20:05)
[2021-02-26 06:00] VITALS: BP 127/67; PULSE 80; RESP 20; TEMP 36.2; O2SAT 96
[2021-02-26] MEDS: Fluticasone Propionate 100 MCG BLST.W.DEV 2 PUFF INHALE ×2 (08:57→21:10)
[2021-02-26] MEDS: Nicotine 21 MG PATCH.TD24 TRANSDERMA (08:57)
[2021-02-26] MEDS: Topiramate 25 MG TABLET PO ×2 (08:57→21:14)
[2021-02-26] MEDS: Loratadine 10 MG TABLET PO (08:57)
[2021-02-26] MEDS: DULoxetine HCl 60 MG CAPSULE.DR PO (08:57)
[2021-02-26] MEDS: Omeprazole 20 MG CAPSULE.DR PO (08:57)
[2021-02-26] MEDS: LORazepam 1 MG TABLET PO ×3 (09:20→21:14)
--- NOTE | 2021-02-26 11:14 | HO.PSYCHPN ---
Subjective Subjective Date of Service: 02/26/21 Reason For Visit: Psychiatric illness Interim History: met with pt and Hattie (werner) pt says she's feeling much better after ECT yesterday. She denies any SI and currently has no urge to self harm; pt asks to go 1:1 for an hour to see how it feels; she says she feels safe enough to try it; marketing underwriter and Hattie agree. Pt also wants to go to ECT on Wednesday, which was confirmed; after which she'd like to discharge. Slept well last night; eating well; no nightmares. Mental Status Exam Mental Status Exam Narrative: Pt is alert and oriented; behavior is cooperative, friendly and calm; patient is not in distress; dressed in neat, casual attire and well groomed; arms exposed revealing a plethora of scars on bl forearms from history of superficial cutting; 2 inch laceration on forehead, healing well; mood is described as good affect pleasant, congruent; eye contact appropriate; Speech is normal rate, volume and prosody and not pressured; no psychomotor agitation/retardation present; thought process is organized, linear, logical and goal directed. Thought content is on being and staying stable and otherwise pertinent to relevant topics and without any delusional content, paranoid ideations or grandiosity; denies any SI/HI; currently no urges to superficially self harm or bang head. There is no evidence of perceptual disturbance and she denies an AVH. Patients insight and judgment appear intact. Diagnostics Vital Signs (24Hr): Vital Signs - 24 hr 02/25/21 11:17 02/25/21 11:22 02/25/21 11:37 Temperature Pulse Rate 96 90 94 Respiratory Rate 16 16 16 Blood Pressure 113/94 H 152/88 H 153/88 H Pulse Oximetry 98 93 97 02/25/21 12:01 02/25/21 12:26 02/25/21 20:04 Temperature 97.9 F 98.0 F 97.7 F Pulse Rate 85 85 75 Respiratory Rate 16 18 Blood Pressure 153/88 H 155/76 H 110/62 Pulse Oximetry 98 99 02/25/21 20:05 02/26/21 06:00 Temperature 97.1 F Pulse Rate 75 80 Respiratory Rate 20 Blood Pressure 110/62 127/67 Pulse Oximetry 96 Body Mass Index 44.6 Labs Results: 02/23/21 18:56 02/23/21 07:19 Imaging Radiology Impressions: ITS Impressions Head CT 02/16/21 18:33 IMPRESSION: No CT evidence of acute intracranial pathology. Scalp hematoma and soft tissue swelling in the frontal region. Abdomen/Pelvis CT 02/18/21 22:43 IMPRESSION: No evidence of active gastrointestinal bleed. No acute finding in the abdomen or pelvis. No inflammatory change. Unchanged small pulmonary nodules, suggesting benign etiology. Medications Medications Current Medications Generic Name Dose Route Start Last Admin Trade Name Freq PRN Reason Stop Dose Admin Acetaminophen 650 mg 02/16/21 21:13 02/24/21 16:59 Acetaminophen 325 Mg Tablet PO 650 mg Q6H PRN Administration Pain, Mild (Pain Scale 1-3) Albuterol Sulfate 2 puff 02/16/21 20:45 Albuterol Sulfate 90 Mcg 8 Gm Inhaler INHALE Q6H PRN Wheezing Chlorpromazine HCl 100 mg 02/16/21 21:00 02/25/21 20:05 Chlorpromazine Hcl 100 Mg Tablet PO 100 mg BEDTIME SULEIMAN Administration Duloxetine HCl 60 mg 02/17/21 09:00 02/26/21 08:57 Duloxetine Hcl 60 Mg Capsule.Dr PO 60 mg DAILY SULEIMAN Administration Fluticasone Propionate 1 spray 02/16/21 21:00 02/26/21 09:00 Fluticasone Propionate Nasal 16 Gm [place] NOSTRIL-B Not Given BID SULEIMAN Fluticasone Propionate 2 puff 02/17/21 08:00 02/26/21 08:57 Fluticasone Propionate 100 Mcg Blst.W.Dev INHALE 2 puff RBID SULEIMAN Administration Haloperidol 5 mg 02/16/21 20:45 02/25/21 20:05 Haloperidol 5 Mg Tablet PO 5 mg BID PRN Administration psychosis Haloperidol Decanoate 50 mg 03/14/21 10:00 Haloperidol Decanoate 50 Mg/Ml Ampul IM Q28D SULEIMAN Hydroxyzine HCl 50 mg 02/16/21 20:45 02/25/21 00:15 Hydroxyzine Hcl 50 Mg Tablet PO 50 mg TID PRN Administration Anxiety [place] Carbonate 600 mg 02/16/21 21:00 02/25/21 20:05 [place] Carbonate Er 300 Mg Tablet.Er PO 600 mg BEDTIME SULEIMAN Administration Loratadine 10 mg 02/17/21 09:00 02/26/21 08:57 Loratadine 10 Mg Tablet PO 10 mg DAILY SULEIMAN Administration Lorazepam 1 mg 02/26/21 09:30 02/26/21 09:20 Lorazepam 1 Mg Tablet PO 1 mg TID SULEIMAN Administration Mirtazapine 15 mg 02/16/21 21:00 02/25/21 20:05 Mirtazapine 15 Mg Tablet PO 15 mg BEDTIME SULEIMAN Administration Nicotine 21 mg 02/17/21 09:00 02/26/21 08:57 Nicotine 21 Mg Patch.Td24 TRANSDERMA 21 mg DAILY SULEIMAN Administration Omeprazole 20 mg 02/17/21 06:30 02/26/21 08:57 Omeprazole 20 Mg Capsule.Dr PO 20 mg DAILY@0630 SULEIMAN Administration Ondansetron HCl 4 mg 02/16/21 20:45 Ondansetron Odt 4 Mg Tab.Rapdis TRANSLINGU Q8H PRN nausea and vomiting Prazosin HCl 5 mg 02/16/21 21:00 02/25/21 20:05 Prazosin Hcl 5 Mg Capsule PO 5 mg BEDTIME SULEIMAN Administration Protocol Sumatriptan Succinate 50 mg 02/16/21 20:45 Sumatriptan Succinate 50 Mg Tablet PO DAILY PRN Migraine Headache Topiramate 25 mg 02/16/21 21:00 02/26/21 08:57 Topiramate 25 Mg Tablet PO 25 mg BID SULEIMAN Administration Trazodone HCl 50 mg 02/16/21 20:45 02/25/21 00:15 Trazodone Hcl 50 Mg Tablet PO 50 mg BEDTIME PRN Administration Insomnia Allergies Allergies Allergy/AdvReac Type Severity Reaction Status Date / Time carbamazepine [From TEGRETOL] AdvReac Unknown NAUSEA & Verified 02/15/21 18:13 VOMITING Assessment & Plan Assessment & Plan (1) Recurrent major depression-severe: Qualifiers: Psychotic features: with psychotic features Qualified Code(s): F33.3 - Major depressive disorder, recurrent, severe with psychotic symptoms Status: Acute Code(s): F33.2 - Major depressive disorder, recurrent severe without psychotic features (2) Borderline personality disorder: Status: Acute Code(s): F60.3 - Borderline personality disorder (3) Chronic post-traumatic stress disorder (PTSD): Status: Acute Code(s): F43.12 - Post-traumatic stress disorder, chronic (4) Hematoma of frontal scalp: Status: Acute Code(s): S00.03XA - Contusion of scalp, initial encounter Assessment and Plan: IMPRESSION: Patient is a 35-year-old female with history of multiple psychiatric admissions, depression, PTSD and borderline personality disorder, who lives in a retirement and presents for dysregulated mood and suicidal ideation. patient reports that emotionally ability is subsiding, SI diminishing and depression abating; however she reports the urge to superficially self-harm and says she requires a one-to-one ( which apparently is typical for her admissions). Barrier to discharge is patients urge to self harm and need for ECT which cannot be done as an outpatient pt improving; no SI or urge to self harm; asks to go off 1:1 for an hour, first time ever during an admission Scheduled for ect on 02/28. if remains stable will discharge after ECT on 02/28 PLAN: Patient on CV, ECT planned for wednesday; pt cleared currently on one-to-one ( staff who know her well informed marketing underwriter that patient always remains on a one-to-one throughout her admissions until discharge) H&H low on admission; rechecked and improved; remaining stable Dr. Silva agrees with ECT; continue home medications at current doses hemoglobin A1c and lipid panel pending Greater than 50% of the session was spent on counseling and/or coordination of care Reason for contiued inpatient stay Substantial Risk for: other (needs procedure can only get inpt)
[2021-02-26] MEDS: Albuterol Sulfate 90 MCG 8 GM INHALER 2 PUFF INHALE (12:47)
[2021-02-26] MEDS: Acetaminophen 325 MG TABLET 650 MG PO (14:46)
[2021-02-26 18:00] VITALS: BP 106/59; PULSE 99; RESP 18; TEMP 36.2; O2SAT 98
[2021-02-26] MEDS: HaloperidoL 5 MG TABLET PO (18:28)
[2021-02-26] MEDS: Nicotine Polacrilex 2 MG GUM 4 MG BUCCAL (18:28)
[2021-02-26] MEDS: hydrOXYzine HCL 50 MG TABLET PO (18:29)
[2021-02-26] MEDS: chlorproMAZINE HCl 100 MG TABLET PO (21:13)
[2021-02-26 21:14] VITALS: BP 134/80; PULSE 90
[2021-02-26] MEDS: Prazosin HCL 5 MG CAPSULE PO (21:14)
[2021-02-26] MEDS: Lithium Carbonate ER 300 MG TABLET.ER 600 MG PO (21:14)
[2021-02-26] MEDS: Mirtazapine 15 MG TABLET PO (21:30)
[2021-02-27 07:00] VITALS: BMI 45.4
[2021-02-27] MEDS: Omeprazole 20 MG CAPSULE.DR PO (09:05)
[2021-02-27] MEDS: Topiramate 25 MG TABLET PO (09:05)
[2021-02-27] MEDS: LORazepam 1 MG TABLET PO ×2 (09:05→14:49)
[2021-02-27] MEDS: Loratadine 10 MG TABLET PO (09:05)
[2021-02-27] MEDS: DULoxetine HCl 60 MG CAPSULE.DR PO (09:05)
[2021-02-27] MEDS: Nicotine 21 MG PATCH.TD24 TRANSDERMA (09:05)
[2021-02-27] MEDS: Fluticasone Propionate 100 MCG BLST.W.DEV 2 PUFF INHALE ×2 (09:16→20:59)
[2021-02-27] MEDS: Nicotine Polacrilex 2 MG GUM 4 MG BUCCAL (09:16)
--- NOTE | 2021-02-27 15:30 | P.PNPSI_ITS ---
Subjective Subjective Date of Service: 02/27/21 Reason For Visit: Psychiatric illness Interim History: Patient reports she is doing ?okay ?and is a little tired, and a little irritable. She reports that yesterday she had no urges to self-harm. She found a broken piece of something was holding it, but reiterates no urge plan or intent to self-harm. She said it did not matter how much she said so yesterday, but nursing still is going to say what they want to say implying that staff did not believe her. She said she was upset with her one-to-one sitter because the sitter was on her personal phone and patient felt neglected. She denies any SI or HI and feels ready to go home tomorrow. Medication Compliance: Yes Side effects from medications: No Attending Groups: Yes Mental Status Exam Mental Status Exam Narrative: Pt is alert and oriented; behavior is cooperative and calm; patient is not in distress; dressed in neat, casual attire and well groomed; arms exposed revealing a plethora of scars on bl forearms from history of superficial cutting; 2 inch laceration on forehead, healing well; mood is described as ok...little irritable affect congruent; eye contact appropriate; Speech is normal rate, volume and prosody and not pressured; no psychomotor agitation/retardation present; thought process is organized, linear, logical and goal directed. Thought content is on not being believed but otherswise on staying stable and pertinent to relevant topics and without any delusional content, paranoid ideations or grandiosity; denies any SI/HI; currently no urges to superficially self harm or bang head. There is no evidence of perceptual disturbance and she denies an AVH. Patients insight and judgment appear intact. Diagnostics Vital Signs (24Hr): Vital Signs - 24 hr 02/26/21 18:00 02/26/21 21:14 Temperature 97.2 F Pulse Rate 99 90 Respiratory Rate 18 Blood Pressure 106/59 L 134/80 Pulse Oximetry 98 Body Mass Index 45.4 Labs Results: 02/23/21 18:56 02/23/21 07:19 Imaging Radiology Impressions: ITS Impressions Head CT 02/16/21 18:33 IMPRESSION: No CT evidence of acute intracranial pathology. Scalp hematoma and soft tissue swelling in the frontal region. Abdomen/Pelvis CT 02/18/21 22:43 IMPRESSION: No evidence of active gastrointestinal bleed. No acute finding in the abdomen or pelvis. No inflammatory change. Unchanged small pulmonary nodules, suggesting benign etiology. Medications Medications Current Medications Generic Name Dose Route Start Last Admin Trade Name Freq PRN Reason Stop Dose Admin Acetaminophen 650 mg 02/16/21 21:13 02/26/21 14:46 Acetaminophen 325 Mg Tablet PO 650 mg Q6H PRN Administration Pain, Mild (Pain Scale 1-3) Albuterol Sulfate 2 puff 02/16/21 20:45 02/26/21 12:47 Albuterol Sulfate 90 Mcg 8 Gm Inhaler INHALE 2 puff Q6H PRN Administration Wheezing Chlorpromazine HCl 100 mg 02/16/21 21:00 02/26/21 21:13 Chlorpromazine Hcl 100 Mg Tablet PO 100 mg BEDTIME SULEIMAN Administration Duloxetine HCl 60 mg 02/17/21 09:00 02/27/21 09:05 Duloxetine Hcl 60 Mg Capsule.Dr PO 60 mg DAILY SULEIMAN Administration Fluticasone Propionate 1 spray 02/16/21 21:00 02/27/21 09:05 Fluticasone Propionate Nasal 16 Gm [place] NOSTRIL-B Not Given BID SULEIMAN Fluticasone Propionate 2 puff 02/17/21 08:00 02/27/21 09:16 Fluticasone Propionate 100 Mcg Blst.W.Dev INHALE 2 puff RBID SULEIMAN Administration Haloperidol 5 mg 02/16/21 20:45 02/26/21 18:28 Haloperidol 5 Mg Tablet PO 5 mg BID PRN Administration psychosis Haloperidol Decanoate 50 mg 03/14/21 10:00 Haloperidol Decanoate 50 Mg/Ml Ampul IM Q28D SULEIMAN Hydroxyzine HCl 50 mg 02/16/21 20:45 02/26/21 18:29 Hydroxyzine Hcl 50 Mg Tablet PO 50 mg TID PRN Administration Anxiety [place] Carbonate 600 mg 02/16/21 21:00 02/26/21 21:14 [place] Carbonate Er 300 Mg Tablet.Er PO 600 mg BEDTIME SULEIMAN Administration Loratadine 10 mg 02/17/21 09:00 02/27/21 09:05 Loratadine 10 Mg Tablet PO 10 mg DAILY SULEIMAN Administration Lorazepam 1 mg 02/26/21 09:30 02/27/21 14:49 Lorazepam 1 Mg Tablet PO 1 mg TID SULEIMAN Administration Mirtazapine 15 mg 02/16/21 21:00 02/26/21 21:30 Mirtazapine 15 Mg Tablet PO 15 mg BEDTIME SULEIMAN Administration Nicotine 21 mg 02/17/21 09:00 02/27/21 09:05 Nicotine 21 Mg Patch.Td24 TRANSDERMA 21 mg DAILY SULEIMAN Administration Nicotine Polacrilex 4 mg 02/26/21 16:01 02/27/21 09:16 Nicotine Polacrilex 2 Mg Gum BUCCAL 4 mg Q2H PRN Administration nicotine craving Omeprazole 20 mg 02/17/21 06:30 02/27/21 09:05 Omeprazole 20 Mg Capsule. PO 20 mg DAILY@0630 SULEIMAN Administration Ondansetron HCl 4 mg 02/16/21 20:45 Ondansetron Odt 4 Mg Tab.Rapdis TRANSLINGU Q8H PRN nausea and vomiting Prazosin HCl 5 mg 02/16/21 21:00 02/26/21 21:14 Prazosin Hcl 5 Mg Capsule PO 5 mg BEDTIME SULEIMAN Administration Protocol Sumatriptan Succinate 50 mg 02/16/21 20:45 Sumatriptan Succinate 50 Mg Tablet PO DAILY PRN Migraine Headache Topiramate 25 mg 02/16/21 21:00 02/27/21 09:05 Topiramate 25 Mg Tablet PO 25 mg BID SULEIMAN Administration Trazodone HCl 50 mg 02/16/21 20:45 02/25/21 00:15 Trazodone Hcl 50 Mg Tablet PO 50 mg BEDTIME PRN Administration Insomnia Allergies Allergies Allergy/AdvReac Type Severity Reaction Status Date / Time carbamazepine [From TEGRETOL] AdvReac Unknown NAUSEA & Verified 02/15/21 18:13 VOMITING Assessment & Plan Assessment & Plan (1) Recurrent major depression-severe: Qualifiers: Psychotic features: with psychotic features Qualified Code(s): F33.3 - Major depressive disorder, recurrent, severe with psychotic symptoms Status: Acute Code(s): F33.2 - Major depressive disorder, recurrent severe without psychotic features (2) Borderline personality disorder: Status: Acute Code(s): F60.3 - Borderline personality disorder (3) Chronic post-traumatic stress disorder (PTSD): Status: Acute Code(s): F43.12 - Post-traumatic stress disorder, chronic (4) Hematoma of frontal scalp: Status: Acute Code(s): S00.03XA - Contusion of scalp, initial encounter Assessment and Plan: IMPRESSION: Patient is a 35-year-old female with history of multiple psychiatric admissions, depression, PTSD and borderline personality disorder, who lives in a correction and presents for dysregulated mood and suicidal ideation. patient reports that emotionally ability is subsiding, SI diminishing and depression abating; however she reports the urge to superficially self-harm and says she r equires a one-to-one ( which apparently is typical for her admissions). Barrier to discharge is patients urge to self harm and need for ECT which needs to be completed while inpatient. pt improving; no SI or urge to self harm; asks to go off 1:1 for an hour, first time ever during an admission Scheduled for ect on 02/28. if remains stable will discharge after ECT on 02/28 after assessing that she's stable post ECT PLAN: Patient on CV, ECT planned for wednesday; pt cleared currently on one-to-one ( staff who know her well informed health technical writer that patient always remains on a one-to-one throughout her admissions until discharge) H&H low on admission; rechecked and improved; remaining stable Dr. Silva agrees with ECT; continue home medications at current doses hemoglobin A1c and lipid panel pending Greater than 50% of the session was spent on counseling and/or coordination of care Reason for contiued inpatient stay Substantial Risk for: other (plan to dc wednesday after ECT)
[2021-02-27 20:00] VITALS: BP 129/56; PULSE 108; TEMP 35.8
[2021-02-27 20:19] VITALS: BP 129/56; PULSE 108
[2021-02-27] MEDS: Prazosin HCL 5 MG CAPSULE PO (20:19)
[2021-02-27] MEDS: Mirtazapine 15 MG TABLET PO (20:20)
[2021-02-27] MEDS: HaloperidoL 5 MG TABLET PO (20:20)
[2021-02-27] MEDS: hydrOXYzine HCL 50 MG TABLET PO (20:20)
[2021-02-27] MEDS: chlorproMAZINE HCl 100 MG TABLET PO (20:20)
[2021-02-27] MEDS: traZODone HCL 50 MG TABLET PO ×2 (20:58→22:00)
[2021-02-28] VITALS (9 sets, daily range): BP systolic 111–185; BP diastolic 66–97; PULSE 82–95; RESP 16–22; TEMP 35.7–37.4; O2SAT 93–100
--- NOTE | 2021-02-28 09:08 | P.CONAN_ITS ---
[facility] Active Problems Active Problems: All Active Problems (Updated 02/21/21 @ 12:56 by Maurizio Hernández MD) Chronic post-traumatic stress disorder (PTSD) (Acute) Hematoma of frontal scalp (Acute) Sprain of anterior cruciate ligament of right knee (Acute) Self-inflicted injury (Acute) Lacerations of multiple sites of right arm (Acute) Injury of ligament of right knee (Acute) Increased BMI (Acute) GERD (gastroesophageal reflux disease) (Acute) Recurrent major depression-severe (Acute) Borderline personality disorder (Acute) Past Medical History Medical History Acute post-traumatic stress disorder Adjustment disorder Anxiety Asthma Borderline personality disorder Chronic post-traumatic stress disorder (PTSD) COPD (chronic obstructive pulmonary disease) Depression GERD (gastroesophageal reflux disease) Increased BMI Injury, self-inflicted Intentional self-harm PTSD (post-traumatic stress disorder) Recurrent major depression-severe Schizoaffective disorder Self-harming behavior Suicidal ideation Suicidal ideation Family History Family history of problems with anesthesia: No Surgical History History of Problems with Anesthesia: No Social History Social History Household Members: None Household Members Other:: detention Housing: House Do you presently have visiting nurse or other home services: Yes Alcohol intake: never Patient Tobacco Use Status: Current everyday Tobacco user Tobacco use type: Cigarette Cigarette Packs Per Day: 0.5 Cigarettes Per Day: 10.0 Years Smoked: 13yrs Second Hand Smoke Exposure: Yes Substance Use Type: Marijuana service: No Sexual orientation: did not discuss. Meds Allergies Allergy/AdvReac Type Severity Reaction Status Date / Time carbamazepine [From TEGRETOL] AdvReac Unknown NAUSEA & Verified 02/15/21 18:13 VOMITING Active Medications: Current Medications Generic Name Dose Route Start Last Admin Trade Name Freq PRN Reason Stop Dose Admin Acetaminophen 650 mg 02/16/21 21:13 02/26/21 14:46 Acetaminophen 325 Mg Tablet PO 650 mg Q6H PRN Administration Pain, Mild (Pain Scale 1-3) Albuterol Sulfate 2 puff 02/16/21 20:45 02/26/21 12:47 Albuterol Sulfate 90 Mcg 8 Gm Inhaler INHALE 2 puff Q6H PRN Administration Wheezing Chlorpromazine HCl 100 mg 02/16/21 21:00 02/27/21 20:20 Chlorpromazine Hcl 100 Mg Tablet PO 100 mg BEDTIME SULEIMAN Administration Duloxetine HCl 60 mg 02/17/21 09:00 02/27/21 09:05 Duloxetine Hcl 60 Mg Capsule. PO 60 mg DAILY SULEIMAN Administration Fluticasone Propionate 1 spray 02/16/21 21:00 02/27/21 21:02 Fluticasone Propionate Nasal 16 Gm [place] NOSTRIL-B Not Given BID SULEIMAN Fluticasone Propionate 2 puff 02/17/21 08:00 02/27/21 20:59 Fluticasone Propionate 100 Mcg Blst.W.Dev INHALE 2 puff RBID SULEIMAN Administration Haloperidol 5 mg 02/16/21 20:45 02/27/21 20:20 Haloperidol 5 Mg Tablet PO 5 mg BID PRN Administration psychosis Haloperidol Decanoate 50 mg 03/14/21 10:00 Haloperidol Decanoate 50 Mg/Ml Ampul IM Q28D SULEIMAN Hydroxyzine HCl 50 mg 02/16/21 20:45 02/27/21 20:20 Hydroxyzine Hcl 50 Mg Tablet PO 50 mg TID PRN Administration Anxiety [place] Carbonate 600 mg 02/16/21 21:00 02/27/21 16:27 [place] Carbonate Er 300 Mg Tablet.Er PO Not Given BEDTIME SULEIMAN Loratadine 10 mg 02/17/21 09:00 02/27/21 09:05 Loratadine 10 Mg Tablet PO 10 mg DAILY SULEIMAN Administration Lorazepam 1 mg 02/26/21 09:30 02/27/21 16:27 Lorazepam 1 Mg Tablet PO Not Given TID SULEIMAN Mirtazapine 15 mg 02/16/21 21:00 02/27/21 20:20 Mirtazapine 15 Mg Tablet PO 15 mg BEDTIME SULEIMAN Administration Nicotine 21 mg 02/17/21 09:00 02/27/21 09:05 Nicotine 21 Mg Patch.Td24 TRANSDERMA 21 mg DAILY SULEIMAN Administration Nicotine Polacrilex 4 mg 02/26/21 16:01 02/27/21 09:16 Nicotine Polacrilex 2 Mg Gum BUCCAL 4 mg Q2H PRN Administration nicotine craving Omeprazole 20 mg 02/17/21 06:30 02/27/21 09:05 Omeprazole 20 Mg Capsule. PO 20 mg DAILY@0630 SULEIMAN Administration Ondansetron HCl 4 mg 02/16/21 20:45 Ondansetron Odt 4 Mg Tab.Rapdis TRANSLINGU Q8H PRN nausea and vomiting Prazosin HCl 5 mg 02/16/21 21:00 02/27/21 20:19 Prazosin Hcl 5 Mg Capsule PO 5 mg BEDTIME SULEIMAN Administration Protocol Sumatriptan Succinate 50 mg 02/16/21 20:45 Sumatriptan Succinate 50 Mg Tablet PO DAILY PRN Migraine Headache Topiramate 25 mg 02/16/21 21:00 02/27/21 16:27 Topiramate 25 Mg Tablet PO Not Given BID SULEIMAN Trazodone HCl 50 mg 02/16/21 20:45 02/27/21 22:00 Trazodone Hcl 50 Mg Tablet PO 50 mg BEDTIME PRN Administration Insomnia Home Medications Medication Instructions Recorded Confirmed Last Taken Type sumatriptan succinate 1 tab PO NEEDED PRN 11/05/20 02/19/21 Unknown History omeprazole 20 mg PO DAILY 11/29/20 02/19/21 12/24/20 08:00 History acetaminophen 650 mg PO Q6H PRN 12/10/20 02/19/21 Unknown History albuterol sulfate [ProAir HFA] 2 puff INHALATION Q6-8H PRN 12/10/20 02/19/21 Unknown History ibuprofen 600 mg PO Q8H PRN 12/10/20 02/19/21 Unknown History mirtazapine 1 tab PO BEDTIME 12/10/20 02/19/21 12/23/20 20:00 History nicotine 1 patch TRANSDERMAL DAILY 12/10/20 02/19/21 Unknown History cetirizine 10 mg PO DAILY 12/24/20 02/19/21 12/23/20 09:00 History fluticasone propionate 1 spray INTRANASAL BID 12/24/20 02/19/21 12/24/20 09:00 History fluticasone propionate [Flovent 2 puff INHALATION BID 12/24/20 02/19/21 12/24/20 08:00 History HFA] hydroxyzine pamoate [Vistaril] 50 mg PO TID PRN 12/24/20 02/19/21 Unknown History naproxen 1 tab PO Q8-12H PRN 12/24/20 02/19/21 12/24/20 08:00 History topiramate 1 tab PO BID 12/24/20 02/19/21 12/24/20 08:00 History haloperidol decanoate 50 mg IM Q4W 02/15/21 02/19/21 02/13/21 11:00 History Exam Exam Date and Time: February 28, 2021 0908 Height,Weight and Vital Signs: Height 5 ft 4 in Weight 120.1 kg Last Vital Signs Temp 97.8 F 02/28/21 08:39 Pulse 93 02/28/21 08:39 Resp 20 02/28/21 08:39 BP 141/89 H 02/28/21 08:39 Pulse Ox 99 02/28/21 08:39 Pertinent Lab Results Pertinent Lab Results: Laboratory Tests 02/16/21 02/16/21 02/16/21 19:08 19:08 19:08 WBC 9.6 RBC 3.67 L Hgb 9.1 L Hct 30.4 L MCV 82.8 MCH 24.8 L MCHC 29.9 L RDW 17.0 H Plt Count 324 MPV 10.2 Immature Gran % (Auto) 0.3 Neut % (Auto) 67.8 Lymph % (Auto) 26.1 [place] % (Auto) 5.6 Eos % (Auto) 0.1 Baso % (Auto) 0.1 Lymph # (Auto) 2.5 [place] # (Auto) 0.5 Eos # (Auto) 0.0 Baso # (Auto) 0.0 Abs Immat Gran (auto) 0.03 Absolute Neuts (auto) 6.5 Absolute Nucleated RBC 0.000 Nucleated RBC % (auto) 0.0 Sodium 139 Potassium 3.7 Chloride 110 H Carbon Dioxide 19 L Anion Gap 14 BUN 6 L Creatinine 0.80 Estim Creat Clear Calc 148.2 Estimated GFR > 60 Random Glucose 96 Estimat Average Glucose Hemoglobin A1c % Calcium 9.1 Triglycerides Cholesterol LDL Cholesterol, Calc HDL Cholesterol Urine Color Urine Appearance Urine pH Ur Specific Bud Urine Protein Urine Glucose (UA) Urine Ketones Urine Blood Urine Nitrite Ur Leukocyte Esterase Urine Test Stool Occult Blood Urine Opiates Screen Ur Barbiturates Screen Ur Phencyclidine Scrn Ur Amphetamines Screen U Benzodiazepines Scrn [place] Urine Cocaine Screen U Marijuana (THC) Screen Ethyl Alcohol < 10 COVID-19 (RAFAL) COVID-19 Clin Com 07/04/21 07/04/21 07/04/21 19:10 19:47 19:47 WBC RBC Hgb Hct MCV MCH MCHC RDW Plt Count MPV Immature Gran % (Auto) Neut % (Auto) Lymph % (Auto) [place] % (Auto) Eos % (Auto) Baso % (Auto) Lymph # (Auto) [place] # (Auto) Eos # (Auto) Baso # (Auto) Abs Immat Gran (auto) Absolute Neuts (auto) Absolute Nucleated RBC Nucleated RBC % (auto) Sodium Potassium Chloride Carbon Dioxide Anion Gap BUN Creatinine Estim Creat Clear Calc Estimated GFR Random Glucose Estimat Average Glucose Hemoglobin A1c % Calcium Triglycerides Cholesterol LDL Cholesterol, Calc HDL Cholesterol Urine Color Urine Appearance Urine pH Ur Specific Bud Urine Protein Urine Glucose (UA) Urine Ketones Urine Blood Urine Nitrite Ur Leukocyte Esterase Urine Test NEGATIVE Stool Occult Blood Urine Opiates Screen Not Detected Ur Barbiturates Screen Not Detected Ur Phencyclidine Scrn Not Detected Ur Amphetamines Screen Not Detected U Benzodiazepines Scrn Not Detected [place] Urine Cocaine Screen Not Detected U Marijuana (THC) Screen POSITIVE H Ethyl Alcohol COVID-19 (RAFAL) Negative COVID-19 [employer] See Note 02/16/21 02/18/21 02/18/21 19:47 21:01 22:53 WBC RBC Hgb Hct MCV MCH MCHC RDW Plt Count MPV Immature Gran % (Auto) Neut % (Auto) Lymph % (Auto) [place] % (Auto) Eos % (Auto) Baso % (Auto) Lymph # (Auto) [place] # (Auto) Eos # (Auto) Baso # (Auto) Abs Immat Gran (auto) Absolute Neuts (auto) Absolute Nucleated RBC Nucleated RBC % (auto) Sodium Potassium Chloride Carbon Dioxide Anion Gap BUN Creatinine Estim Creat Clear Calc Estimated GFR Random Glucose Estimat Average Glucose Hemoglobin A1c % Calcium Triglycerides Cholesterol LDL Cholesterol, Calc HDL Cholesterol Urine Color YELLOW YELLOW Urine Appearance HAZY CLEAR Urine pH 6.0 7.0 Ur Specific Bud <= 1.005 1.015 Urine Protein NEG NEG Urine Glucose (UA) NEG NEG Urine Ketones NEG NEG Urine Blood NEG NEG Urine Nitrite NEG NEG Ur Leukocyte Esterase NEG NEG Urine Test Stool Occult Blood NEGATIVE Urine Opiates Screen Ur Barbiturates Screen Ur Phencyclidine Scrn Ur Amphetamines Screen U Benzodiazepines Scrn [place] Urine Cocaine Screen U Marijuana (THC) Screen Ethyl Alcohol COVID-19 (RAFAL) COVID-19 [employer] 02/20/21 02/23/21 02/23/21 09:21 07:19 07:19 WBC 6.9 RBC 4.29 Hgb 10.8 L Hct 34.8 L MCV 81.1 MCH 25.2 L MCHC 31.0 RDW 17.0 H Plt Count 344 MPV 10.5 Immature Gran % (Auto) 0.3 Neut % (Auto) 60.1 Lymph % (Auto) 31.4 [place] % (Auto) 8.0 Eos % (Auto) 0.1 Baso % (Auto) 0.1 Lymph # (Auto) 2.2 [place] # (Auto) 0.6 Eos # (Auto) 0.0 Baso # (Auto) 0.0 Abs Immat Gran (auto) 0.02 Absolute Neuts (auto) 4.1 Absolute Nucleated RBC 0.000 Nucleated RBC % (auto) 0.0 Sodium Potassium Chloride Carbon Dioxide Anion Gap BUN 10 D Creatinine 0.78 Estim Creat Clear Calc 128.4 Estimated GFR > 60 Random Glucose Estimat Average Glucose 97 Hemoglobin A1c % 5.0 Calcium Triglycerides 97 Cholesterol 182 LDL Cholesterol, Calc 116 HDL Cholesterol 47 Urine Color Urine Appearance Urine pH Ur Specific Bud Urine Protein Urine Glucose (UA) Urine Ketones Urine Blood Urine Nitrite Ur Leukocyte Esterase Urine Test Stool Occult Blood Urine Opiates Screen Ur Barbiturates Screen Ur Phencyclidine Scrn Ur Amphetamines Screen U Benzodiazepines Scrn [place] Urine Cocaine Screen U Marijuana (THC) Screen Ethyl Alcohol COVID-19 (RAFAL) COVID-19 Clin Com 02/23/21 02/23/21 07:19 18:56 WBC 9.5 RBC 4.17 L Hgb 10.6 L Hct 33.6 L MCV 80.6 MCH 25.4 L MCHC 31.5 RDW 16.8 H Plt Count 347 MPV 10.7 Immature Gran % (Auto) 0.3 Neut % (Auto) 64.4 Lymph % (Auto) 28.6 [place] % (Auto) 6.5 Eos % (Auto) 0.1 Baso % (Auto) 0.1 Lymph # (Auto) 2.7 [place] # (Auto) 0.6 Eos # (Auto) 0.0 Baso # (Auto) 0.0 Abs Immat Gran (auto) 0.03 Absolute Neuts (auto) 6.1 Absolute Nucleated RBC 0.000 Nucleated RBC % (auto) 0.0 Sodium Potassium Chloride Carbon Dioxide Anion Gap BUN Creatinine Estim Creat Clear Calc Estimated GFR Random Glucose Estimat Average Glucose Hemoglobin A1c % Calcium Triglycerides Cholesterol LDL Cholesterol, Calc HDL Cholesterol Urine Color Urine Appearance Urine pH Ur Specific Bud Urine Protein Urine Glucose (UA) Urine Ketones Urine Blood Urine Nitrite Ur Leukocyte Esterase Urine Test Stool Occult Blood Urine Opiates Screen Ur Barbiturates Screen Ur Phencyclidine Scrn Ur Amphetamines Screen U Benzodiazepines Scrn [place] 0.64 Urine Cocaine Screen U Marijuana (THC) Screen Ethyl Alcohol COVID-19 (RAFAL) COVID-19 Clin Com Airway Mallampati Class: II TM Dist: >3cm Neck ROM: Full Assessment and Plan Assessment Anesthesia Assessment: Anesthesia Plan Discussed and Chart Reviewed Final Anesthetic Review NPO: Yes ASA Class: II Final Preanesthetic Review: No Changes in Pt Med Stat, Meds/Allgs Chart Reviewed, Consent Obtained/Reviewed and Anes Risks/Benef Reviewed Patient Risk: Low Procedure Risk: Low Assessment/Block/Sedation in SS: Assess/Block/Sedation-SS Anesthetic Plan Anesthetic Plan: GA Disposition: Standard PACU
--- NOTE | 2021-02-28 09:08 | MHC.SHP ---
Pre-Procedural Eval Section A Date of Service: 02/28/21 The patient is an INPATIENT: Yes Changes since office visit: Yes Patient answered all questions; No Cold of Flu in the past 2 weeks, No New Medical Problems and No Changes in Medication The History & Physical has been completed within 30 days and I have reviewed it.: Yes Section B Chief Complaint: Psychiatric illness Allergies: Allergies Allergy/AdvReac Type Severity Reaction Status Date / Time carbamazepine [From TEGRETOL] AdvReac Unknown NAUSEA & Verified 02/15/21 18:13 VOMITING Plan I have reviewed the history and physical and performed a pertinent physical examination on my patient. No changes have occurred unless specified.
--- NOTE | 2021-02-28 09:34 | HO.ECTPROC ---
ECT Procedure Note Diagnosis/Treatment Date of Service: 02/28/21 Diagnosis: Major Depressive Disorder Treatment: Maintenance Interval Clinical Notes: kajal kirkpatrick for d/c ECT Settings Device: THYMATRON DGx Electrode Placement: Right Unilateral Program/Pulse Width: 0.50 Energy Percent: 100 Seizure Duration By EEG (in seconds): 34 Medications Administration General Anesthetic: Etomidate (12) Muscle Relaxant: Succinylcholine (100) Ancillary Medications Analgesics: Torodol - Pre ECT Anti-emetics: Zofran - Pre ECT Miscillaneous Medications: Propofol (30 mg post) Airway Management Airway Management: Bag Mask Ventilation Treatment Recommendations Notes: ? use flumazenil Pt Tolerated Procedure w/o Issue: Yes
[2021-02-28] MEDS: LORazepam 1 MG TABLET PO (10:12)
[2021-02-28] MEDS: Omeprazole 20 MG CAPSULE.DR PO (10:12)
[2021-02-28] MEDS: Topiramate 25 MG TABLET PO (10:12)
[2021-02-28] MEDS: Loratadine 10 MG TABLET PO (10:12)
[2021-02-28] MEDS: DULoxetine HCl 60 MG CAPSULE.DR PO (10:13)
[2021-02-28] MEDS: Fluticasone Propionate 100 MCG BLST.W.DEV 2 PUFF INHALE (10:17)
--- NOTE | 2021-02-28 11:31 | PM.PSYDC ---
DS: Providers Provider Date of Service: 02/28/21 Date of admission: 02/19/21 15:11 Date of discharge: 02/28/21 Primary care physician: Unknown Physician Attending physician on admission: Maurizio Hernández Consults: 02/21/21 15:09 Consult to Hospitalist Routine Consulting Provider: Hospitalist Reason For Exam: assess for ECT Attending physician on discharge: Maurizio Hernández DS: Diagnosis Discharge Diagnosis (1) Recurrent major depression-severe: Status: Chronic (2) Borderline personality disorder: Status: Chronic (3) Chronic post-traumatic stress disorder (PTSD): Status: Chronic (4) Hematoma of frontal scalp: Status: Resolved DS: Medications Discharge Medications Home Medications: Home Medications Medication Instructions Recorded Confirmed sumatriptan succinate 1 tab PO NEEDED PRN 11/05/20 02/19/21 omeprazole 20 mg PO DAILY 11/29/20 02/19/21 acetaminophen 650 mg PO Q6H PRN 12/10/20 02/19/21 albuterol sulfate [ProAir HFA] 2 puff INHALATION Q6-8H PRN 12/10/20 02/19/21 ibuprofen 600 mg PO Q8H PRN 12/10/20 02/19/21 mirtazapine 1 tab PO BEDTIME 12/10/20 02/19/21 nicotine 1 patch TRANSDERMAL DAILY 12/10/20 02/19/21 Flovent HFA 2 puff INHALATION BID 12/24/20 02/19/21 cetirizine 10 mg PO DAILY 12/24/20 02/19/21 fluticasone propionate 1 spray INTRANASAL BID 12/24/20 02/19/21 hydroxyzine pamoate [Vistaril] 50 mg PO TID PRN 12/24/20 02/19/21 topiramate 1 tab PO BID 12/24/20 02/19/21 haloperidol decanoate 50 mg IM Q4W 02/15/21 02/19/21 Previous Rx's Medication Instructions Recorded chlorpromazine 100 mg PO BEDTIME #30 tab 08/19/20 duloxetine 60 mg PO DAILY 30 Days #30 cap 08/19/20 haloperidol 5 mg PO BID PRN 30 Days #60 tab 08/19/20 lithium carbonate 600 mg PO BEDTIME #30 tab 08/19/20 lorazepam 1 mg PO BEDTIME 30 Days #30 tab 08/19/20 lorazepam 1 mg PO TID PRN 30 Days #90 tab 08/19/20 prazosin 5 mg PO BEDTIME 30 Days #30 cap 08/19/20 trazodone 50 mg PO BEDTIME PRN 30 Days #30 08/19/20 tab leg brace #1 ea 11/14/20 ondansetron 4 mg PO Q8H PRN #20 tab 02/04/21 nicotine [Nicoderm CQ] 1 patch TRANSDERMAL DAILY PRN 30 02/28/21 Days #28 ea Discharge Plan Discharge Patient Disposition: Xfer Other Discharge Diagnosis: MDD, recurrent, severe, in full remission Referrals: Von Cisneros NP [Referring] - 03/28/21 10:00 am Carroll Gaviria MD [Physician] - 1 Week ( OFFICE AWARE OF FOLLOW-UP APPOINTMENT WAITING A CALL BACK OR THEY WILL CALL PT. AT HOME WITH APPOINTMENT DATE.) Discharge Medications: New nicotine [Nicoderm CQ] 21 mg/24 hr patch 24 hour 1 patch transdermal DAILY PRN (Reason: nicotine cravings) 30 Days Qty: 28 RF: 0 Continued sumatriptan succinate 50 mg tablet 1 tab PO NEEDED PRN (Reason: Migraine Headache) RF: 0 omeprazole 20 mg capsule,delayed release(DR/EC) 20 mg PO DAILY RF: 0 ondansetron 4 mg tablet,disintegrating 4 mg PO Q8H PRN (Reason: nausea and vomiting) Qty: 20 RF: 0 chlorpromazine 100 mg Tablet 100 mg PO BEDTIME Qty: 30 RF: 0 lorazepam 1 mg Tablet 1 mg PO BEDTIME 30 Days Qty: 30 RF: 0 lorazepam 1 mg Tablet 1 mg PO TID PRN (Reason: Anxiety/Restlessness ) 30 Days Qty: 90 RF: 0 trazodone 50 mg Tablet 50 mg PO BEDTIME PRN (Reason: Insomnia) 30 Days Qty: 30 RF: 0 lithium carbonate 300 mg Tablet Extended Release 600 mg PO BEDTIME Qty: 30 RF: 0 prazosin 5 mg Capsule 5 mg PO BEDTIME 30 Days Qty: 30 RF: 0 duloxetine 60 mg Capsule,Delayed Release(Dr/Ec) 60 mg PO DAILY 30 Days Qty: 30 RF: 0 haloperidol 5 mg Tablet 5 mg PO BID PRN (Reason: psychosis) 30 Days Qty: 60 RF: 0 mirtazapine 15 mg tablet 1 tab PO BEDTIME RF: 0 albuterol sulfate [ProAir HFA] 90 mcg/actuation HFA aerosol inhaler 2 puff inhalation Q6-8H PRN (Reason: Wheezing) RF: 0 acetaminophen 500 mg Tablet 650 mg PO Q6H PRN (Reason: Pain) RF: 0 nicotine 21 mg/24 hr Patch 24 Hour 1 patch TRANSDERMAL DAILY RF: 0 ibuprofen 600 mg Tablet 600 mg PO Q8H PRN (Reason: Pain) RF: 0 hydroxyzine pamoate [Vistaril] 50 mg capsule 50 mg PO TID PRN (Reason: Anxiety) RF: 0 cetirizine 10 mg Tablet 10 mg PO DAILY RF: 0 fluticasone propionate 50 mcg/actuation spray,suspension 1 spray intranasal BID RF: 0 topiramate 25 mg tablet 1 tab PO BID RF: 0 Flovent HFA 110 mcg/actuation HFA aerosol inhaler 2 puff inhalation BID RF: 0 haloperidol decanoate 50 mg/mL solution 50 mg IM Q4W RF: 0 Discontinued naproxen 500 mg tablet 1 tab PO Q8-12H PRN (Reason: Toothache) RF: 0 No Action (DME) leg brace Misc See Rx Instructions miscellaneous .MEDSUPPLY Qty: 1 RF: 0 Diet: regular diet Activity on Discharge: As tolerated Stand Alone Forms: Patient Portal Discharge page, Community Support Care Plan Goals: Maintain mood and safe behaviors Take medications as prescribed Continue to pursue sobriety Practice coping skills Continue with outpatient providers and reach out to them as needed Health Concerns: Mood instability and behaviors Depression Plan of Treatment: Follow up with your outpatient providers regarding above concerns Take medications as prescribed Assessment: Risk assessment at time of discharge: Patient has been observed closely by nursing and unit staff throughout admission; patient did at first do some mild head banging but was redirected and though urge was intermittently present, she did not engage in any other behaviors that suggest dangerousness to self or others and has demonstrated appropriate behaviors and impulse control. Patient was interviewed prior to discharge and found to be fully oriented and without any SI or HI or any urges to self harm. Patient has insight and demonstrates good judgment in terms of wanting to pursue treatment. Patient is not in imminent risk of harm to self or others and has a safety plan that includes reaching out to staff and/or presenting to the closest ER or calling 911 if feeling unsafe. Discharge Date/Time: 02/28/21 12:45 Mental Status Exam Mental Status Exam Narrative: Pt is alert and oriented; behavior is cooperative, friendly and calm; patient is not in distress; dressed in neat, casual attire and well groomed; mood is described as good...great affect congruent; eye contact appropriate; Speech is normal rate, volume and prosody and not pressured; no psychomotor agitation/retardation present; thought process is organized, linear, logical and goal directed. Thought content is on feeling good and returning home, staying stable and pertinent to relevant topics and without any delusional content, paranoid ideations or grandiosity; denies any SI/HI; denies any urges to superficially self harm. There is no evidence of perceptual disturbance and she denies an AVH. Patients insight and judgment appear intact. Data Data Completed and Pending Completed studies during hospitalization [Text1]: 02/23/21 02/23/21 02/23/21 07:19 07:19 07:19 WBC RBC Hgb Hct MCV MCH MCHC RDW Plt Count MPV Immature Gran % (Auto) Neut % (Auto) Lymph % (Auto) [place] % (Auto) Eos % (Auto) Baso % (Auto) Lymph # (Auto) [place] # (Auto) Eos # (Auto) Baso # (Auto) Abs Immat Gran (auto) Absolute Neuts (auto) Absolute Nucleated RBC Nucleated RBC % (auto) BUN 10 D Creatinine 0.78 Estim Creat Clear Calc 128.4 Estimated GFR > 60 Estimat Average Glucose 97 Hemoglobin A1c % 5.0 Triglycerides 97 Cholesterol 182 LDL Cholesterol, Calc 116 HDL Cholesterol 47 [place] 0.64 02/23/21 18:56 WBC 9.5 RBC 4.17 L Hgb 10.6 L Hct 33.6 L MCV 80.6 MCH 25.4 L MCHC 31.5 RDW 16.8 H Plt Count 347 MPV 10.7 Immature Gran % (Auto) 0.3 Neut % (Auto) 64.4 Lymph % (Auto) 28.6 [place] % (Auto) 6.5 Eos % (Auto) 0.1 Baso % (Auto) 0.1 Lymph # (Auto) 2.7 [place] # (Auto) 0.6 Eos # (Auto) 0.0 Baso # (Auto) 0.0 Abs Immat Gran (auto) 0.03 Absolute Neuts (auto) 6.1 Absolute Nucleated RBC 0.000 Nucleated RBC % (auto) 0.0 BUN Creatinine Estim Creat Clear Calc Estimated GFR Estimat Average Glucose Hemoglobin A1c % Triglycerides Cholesterol LDL Cholesterol, Calc HDL Cholesterol [place] [facility] Diagnostic Imaging Impressions Head CT 02/16/21 18:33 IMPRESSION: No CT evidence of acute intracranial pathology. Scalp hematoma and soft tissue swelling in the frontal region. Abdomen/Pelvis CT 02/18/21 22:43 IMPRESSION: No evidence of active gastrointestinal bleed. No acute finding in the abdomen or pelvis. No inflammatory change. Unchanged small pulmonary nodules, suggesting benign etiology. DS: Summary Hospital Course Hospital Course: Patient is a 35-year-old female with history of multiple psychiatric admissions, depression, PTSD and borderline personality disorder, who lives in a skilled nursing and presents for dysregulated mood and suicidal ideation. Patient signed a CV. On admission she reported that her depression was less, emotional lability was subsiding and SI diminishing. She did however have continued urges to self-harm and was on a one-to-one for most of her admission. Patient's home medications were continued and no changes made. Over subsequent days her mood improved and depression eventually fully resolved. SI fully resolved as well. Though she had frequent urges to self-harm, she resisted doing so and had only 1 bout of mild head banging. Patient was scheduled for ECT which was successful and she had 2 treatments. Her labs were within normal limits. Patient said she felt safe enough to come off one-to-one and did so for about 4 or 5 hours 1 day, and accomplishment for her as she has had few admissions where she did not remain on one-to-one throughout. Patient felt ready to go and return to her skilled nursing. She said she was in a good mood and continued to deny any SI, HI, AVH and importantly had denied any urges to self-harm. Patient was thankful for admission and help received. She is returning to a skilled nursing which is a supportive environment and helps manage her medications. She was not in imminent risk for harm to self or others and her request for discharge honored. Time spent discussing smoking cessation with patient: 3 to 10 minutes Status at Discharge Functional status at discharge: independent ambulation Overall status at discharge: patient is back to baseline Time Spent with Patient Time attestation: Total time spent providing and/or coordinating discharge services: Time spent: Less than 30 minutes
== END 2021-02-28 12:45 | disposition other institution (70) | DRG 751 ==
LOC: HO.ED 19:36 → HO.PM5 02-19 15:13 → HO.PADLT16 02-25 11:32 → HO.PM5 02-25 11:34
PROVIDERS: Emergency Medicine; Nurse Practitioner Family; Psychiatry & Neurology Psychiatry; Admitting Provider Psychiatry & Neurology Psychiatry; Emergency Provider Internal Medicine; Visit Provider Psychiatry & Neurology Psychiatry
PROC: GZB4ZZZ Other Electroconvulsive Therapy (ICD-10-PCS; CPT 90870; principal; 2021-02-25 10:00)
DX: F33.2 Major depressive disorder, recurrent severe without psychotic features (principal); R45.851 Suicidal ideations; F17.210 Nicotine dependence, cigarettes, uncomplicated; K21.9 Gastro-esophageal reflux disease without esophagitis; F60.3 Borderline personality disorder; F43.12 Post-traumatic stress disorder, chronic; Z71.6 Tobacco abuse counseling; Z91.5 Personal history of self-harm; Z79.1 Long term (current) use of non-steroidal anti-inflammatories (NSAID); Z79.51 Long term (current) use of inhaled steroids; Z79.899 Other long term (current) drug therapy
CPT/HCPCS: 36415; 70450; 74178; 80048; 80061; 80178; 80307; 81003; 81025; 82077; 82272; 82565; 83036; 84520; 85025; 87635; 90870; 93005; 99285; J0330; J1642; J1885; J2060; J2405; Q9967

== ENCOUNTER 2021-03-07 06:16 | Day surgery (SDC) | payer OTHER, SELFPAY ==
[2021-03-07] VITALS (8 sets, daily range): BP systolic 117–175; BP diastolic 72–145; PULSE 86–98; RESP 16–25; TEMP 36.1–36.4; O2SAT 93–98; BMI 54.5
--- NOTE | 2021-03-07 07:07 | MHC.SHP ---
Pre-Procedural Eval Section A Date of Service: 03/07/21 The patient is an INPATIENT: Yes Changes since office visit: Yes Patient answered all questions; No Cold of Flu in the past 2 weeks, No New Medical Problems and No Changes in Medication The History & Physical has been completed within 30 days and I have reviewed it.: Yes Section B Chief Complaint: major depressive disorder Allergies: Allergies Allergy/AdvReac Type Severity Reaction Status Date / Time carbamazepine [From TEGRETOL] AdvReac Unknown NAUSEA & Verified 02/15/21 18:13 VOMITING Plan I have reviewed the history and physical and performed a pertinent physical examination on my patient. No changes have occurred unless specified.
--- NOTE | 2021-03-07 07:08 | MHC.SHP ---
Pre-Procedural Eval Section A Date of Service: 03/07/21 The patient is an INPATIENT: No Changes since office visit: Yes New Medical Problems, Yes Changes in Medication and Yes Patient answered all questions; No Cold of Flu in the past 2 weeks The History & Physical has been completed within 30 days and I have reviewed it.: Yes Section B Chief Complaint: major depressive disorder Allergies: Allergies Allergy/AdvReac Type Severity Reaction Status Date / Time carbamazepine [From TEGRETOL] AdvReac Unknown NAUSEA & Verified 02/15/21 18:13 VOMITING Plan I have reviewed the history and physical and performed a pertinent physical examination on my patient. No changes have occurred unless specified.
[2021-03-07 07:09] LABS: UPreg QC Valid YES; Urine Pregnancy NEGATIVE (NEGATIVE)
--- NOTE | 2021-03-07 07:09 | HO.ANESPROP2 ---
[facility] Active Problems Active Problems: All Active Problems (Updated 02/28/21 @ 11:33 by Maurizio Hernández MD) Chronic post-traumatic stress disorder (PTSD) (Chronic) Sprain of anterior cruciate ligament of right knee (Acute) Self-inflicted injury (Acute) Lacerations of multiple sites of right arm (Acute) Injury of ligament of right knee (Acute) Increased BMI (Acute) GERD (gastroesophageal reflux disease) (Acute) Recurrent major depression-severe (Chronic) Borderline personality disorder (Chronic) Past Medical History Medical History Acute post-traumatic stress disorder Adjustment disorder Anxiety Asthma Borderline personality disorder Chronic post-traumatic stress disorder (PTSD) COPD (chronic obstructive pulmonary disease) Depression GERD (gastroesophageal reflux disease) Increased BMI Injury, self-inflicted Intentional self-harm PTSD (post-traumatic stress disorder) Recurrent major depression-severe Schizoaffective disorder Self-harming behavior Suicidal ideation Suicidal ideation Family History Family history of problems with anesthesia: No Surgical History History of Problems with Anesthesia: No Social History Social History Household Members: None Household Members Other:: penitentiary Housing: House Do you presently have visiting nurse or other home services: Yes Alcohol intake: never Patient Tobacco Use Status: Current everyday Tobacco user Tobacco use type: Cigarette Cigarette Packs Per Day: 0.5 Cigarettes Per Day: 10.0 Years Smoked: 13yrs Second Hand Smoke Exposure: Yes Substance Use Type: Marijuana Advance Directives: No Advance Directives Information Provided: Yes service: No Sexual orientation: did not discuss. Meds Allergies Allergy/AdvReac Type Severity Reaction Status Date / Time carbamazepine [From TEGRETOL] AdvReac Unknown NAUSEA & Verified 02/15/21 18:13 VOMITING Home Medications Medication Instructions Recorded Confirmed Last Taken Type sumatriptan succinate 1 tab PO NEEDED PRN 11/05/20 02/19/21 Unknown History omeprazole 20 mg PO DAILY 11/29/20 02/19/21 12/24/20 08:00 History acetaminophen 650 mg PO Q6H PRN 12/10/20 02/19/21 Unknown History albuterol sulfate [ProAir HFA] 2 puff INHALATION Q6-8H PRN 12/10/20 02/19/21 Unknown History ibuprofen 600 mg PO Q8H PRN 12/10/20 02/19/21 Unknown History mirtazapine 1 tab PO BEDTIME 12/10/20 02/19/21 12/23/20 20:00 History nicotine 1 patch TRANSDERMAL DAILY 12/10/20 02/19/21 Unknown History Flovent HFA 2 puff INHALATION BID 12/24/20 02/19/21 12/24/20 08:00 History cetirizine 10 mg PO DAILY 12/24/20 02/19/21 12/23/20 09:00 History fluticasone propionate 1 spray INTRANASAL BID 12/24/20 02/19/21 12/24/20 09:00 History hydroxyzine pamoate [Vistaril] 50 mg PO TID PRN 12/24/20 02/19/21 Unknown History topiramate 1 tab PO BID 12/24/20 02/19/21 12/24/20 08:00 History haloperidol decanoate 50 mg IM Q4W 02/15/21 02/19/21 02/13/21 11:00 History Exam Exam Date and Time: March 07, 2021 0709 Height,Weight and Vital Signs: Height 4 ft 11 in Weight 122.47 kg Last Vital Signs Temp 96.9 F 03/07/21 06:25 Pulse 93 03/07/21 06:25 Resp 18 03/07/21 06:25 BP 134/87 03/07/21 06:25 Pulse Ox 96 03/07/21 06:25 Airway Mallampati Class: II TM Dist: >3cm Neck ROM: Full Assessment and Plan Assessment Anesthesia Assessment: Anesthesia Plan Discussed and Chart Reviewed Final Anesthetic Review NPO: Yes ASA Class: III Final Preanesthetic Review: No Changes in Pt Med Stat, Meds/Allgs Chart Reviewed, Consent Obtained/Reviewed and Anes Risks/Benef Reviewed Patient Risk: Intermediate Procedure Risk: Low Assessment/Block/Sedation in SS: Assess/Block/Sedation-SS Anesthetic Plan Anesthetic Plan: GA Disposition: Standard PACU
--- NOTE | 2021-03-07 07:22 | HO.ECTPROC ---
ECT Procedure Note Diagnosis/Treatment Date of Service: 03/07/21 Diagnosis: Major Depressive Disorder Previous ECT Date: 02/28/21 Treatment: Maintenance Interval Clinical Notes: pt states has been stable henerally doing ok ECT Settings Device: THYMATRON DGx Electrode Placement: Right Unilateral Program/Pulse Width: 0.50 Energy Percent: 100 Seizure Duration By EEG (in seconds): 19 Medications Administration General Anesthetic: Etomidate (12) Muscle Relaxant: Succinylcholine (100) Ancillary Medications Analgesics: Torodol - Pre ECT Anti-emetics: Zofran - Pre ECT Miscillaneous Medications: Propofol (30 mg post) Airway Management Airway Management: Bag Mask Ventilation Treatment Recommendations Notes: use flumazenil f/u tx 2 weeks Pt Tolerated Procedure w/o Issue: Yes
[2021-03-07] MEDS: Acetaminophen 325 MG TABLET 650 MG PO (08:49)
== END 2021-03-07 08:58 | disposition home or self-care (01) ==
PROVIDERS: PCP Pediatrics; Visit Provider Psychiatry & Neurology Psychiatry
PROC: (CPT 90870; principal; 2021-03-07 08:00)
DX: F33.2 Major depressive disorder, recurrent severe without psychotic features (principal); F43.12 Post-traumatic stress disorder, chronic; F60.3 Borderline personality disorder; J44.9 Chronic obstructive pulmonary disease, unspecified; Z91.5 Personal history of self-harm
CPT/HCPCS: 81025; 90870; J0330; J1642; J1885; J2405

== ENCOUNTER 2021-03-21 06:08 | Day surgery (SDC) | payer OTHER, SELFPAY ==
[2021-03-21 06:49] VITALS: BP 125/85; PULSE 95; RESP 19; TEMP 36.2; O2SAT 96; BMI 54.5
--- NOTE | 2021-03-21 07:37 | HO.ANESPROP2 ---
[facility] Active Problems Active Problems: All Active Problems (Updated 03/08/21 @ 00:01 by Adiel Sevilla) Chronic post-traumatic stress disorder (PTSD) (Chronic) Sprain of anterior cruciate ligament of right knee (Acute) Self-inflicted injury (Acute) Lacerations of multiple sites of right arm (Acute) Injury of ligament of right knee (Acute) Increased BMI (Acute) GERD (gastroesophageal reflux disease) (Acute) Recurrent major depression-severe (Chronic) Borderline personality disorder (Chronic) Past Medical History Medical History Acute post-traumatic stress disorder Adjustment disorder Anxiety Asthma Borderline personality disorder Chronic post-traumatic stress disorder (PTSD) COPD (chronic obstructive pulmonary disease) Depression GERD (gastroesophageal reflux disease) Increased BMI Injury, self-inflicted Intentional self-harm PTSD (post-traumatic stress disorder) Recurrent major depression-severe Schizoaffective disorder Self-harming behavior Suicidal ideation Suicidal ideation Functional capacity: independent ambulation Patient : No Family History Family history of problems with anesthesia: No Surgical History History of Problems with Anesthesia: No Social History Social History Household Members: None Household Members Other:: detention Housing: House Do you presently have visiting nurse or other home services: Yes Alcohol intake: never Patient Tobacco Use Status: Current everyday Tobacco user Tobacco use type: Cigarette Cigarette Packs Per Day: 0.5 Cigarettes Per Day: 10.0 Years Smoked: 13yrs Second Hand Smoke Exposure: Yes Substance Use Type: Marijuana Are you DNR?: No Advance Directives: No Advance Directives Information Provided: Yes Recently lost weight without trying: No service: No Sexual orientation: did not discuss. Meds Allergies Allergy/AdvReac Type Severity Reaction Status Date / Time carbamazepine [From TEGRETOL] AdvReac Unknown NAUSEA & Verified 02/15/21 18:13 VOMITING Home Medications Medication Instructions Recorded Confirmed Last Taken Type sumatriptan succinate 50 mg tablet 1 tab PO NEEDED PRN 11/05/20 02/19/21 Unknown History omeprazole 20 mg capsule,delayed 20 mg PO DAILY 11/29/20 02/19/21 12/24/20 08:00 History release acetaminophen 500 mg tablet 650 mg PO Q6H PRN 12/10/20 02/19/21 Unknown History albuterol sulfate 90 mcg/actuation 2 puff INHALATION Q6-8H PRN 12/10/20 02/19/21 Unknown History aerosol inhaler (ProAir HFA) ibuprofen 600 mg tablet 600 mg PO Q8H PRN 12/10/20 02/19/21 Unknown History mirtazapine 15 mg tablet 1 tab PO BEDTIME 12/10/20 02/19/21 12/23/20 20:00 History nicotine 21 mg/24 hr daily 1 patch TRANSDERMAL DAILY 12/10/20 02/19/21 Unknown History transdermal patch cetirizine 10 mg tablet 10 mg PO DAILY 12/24/20 02/19/21 12/23/20 09:00 History fluticasone propionate 110 2 puff INHALATION BID 12/24/20 02/19/21 12/24/20 08:00 History mcg/actuation HFA aerosol inhaler (Flovent HFA) fluticasone propionate 50 1 spray INTRANASAL BID 12/24/20 02/19/21 12/24/20 09:00 History mcg/actuation nasal spray,suspension hydroxyzine pamoate 50 mg capsule 50 mg PO TID PRN 12/24/20 02/19/21 Unknown History (Vistaril) topiramate 25 mg tablet 1 tab PO BID 12/24/20 02/19/21 12/24/20 08:00 History haloperidol decanoate 50 mg/mL 50 mg IM Q4W 02/15/21 02/19/21 02/13/21 11:00 History intramuscular solution Exam Exam Date and Time: March 21, 2021 0737 Height,Weight and Vital Signs: Height 4 ft 11 in Weight 122.47 kg Last Vital Signs Temp 97.2 F 03/21/21 06:49 Pulse 95 03/21/21 06:49 Resp 19 03/21/21 06:49 BP 125/85 03/21/21 06:49 Pulse Ox 96 03/21/21 06:49 Airway Mallampati Class: II TM Dist: >3cm Neck ROM: Full Heart: RRR Lungs: CTA Assessment and Plan Final Anesthetic Review Family History of Problems with Anesthesia: No History of Problems with Anesthesia: No
[2021-03-21 07:46] LABS: COVID-19 Test Negative (Negative)
--- NOTE | 2021-03-21 07:47 | P.CONAN_ITS ---
[facility] Active Problems Active Problems: All Active Problems (Updated 03/08/21 @ 00:01 by Adiel Brandt) Chronic post-traumatic stress disorder (PTSD) (Chronic) Sprain of anterior cruciate ligament of right knee (Acute) Self-inflicted injury (Acute) Lacerations of multiple sites of right arm (Acute) Injury of ligament of right knee (Acute) Increased BMI (Acute) GERD (gastroesophageal reflux disease) (Acute) Recurrent major depression-severe (Chronic) Borderline personality disorder (Chronic) Past Medical History Medical History Acute post-traumatic stress disorder Adjustment disorder Anxiety Asthma Borderline personality disorder Chronic post-traumatic stress disorder (PTSD) COPD (chronic obstructive pulmonary disease) Depression GERD (gastroesophageal reflux disease) Increased BMI Injury, self-inflicted Intentional self-harm PTSD (post-traumatic stress disorder) Recurrent major depression-severe Schizoaffective disorder Self-harming behavior Suicidal ideation Suicidal ideation Functional capacity: independent ambulation Patient : No Family History Family history of problems with anesthesia: No Surgical History History of Problems with Anesthesia: No Social History Social History Household Members: None Household Members Other:: penitentiary Housing: House Do you presently have visiting nurse or other home services: Yes Alcohol intake: never Patient Tobacco Use Status: Current everyday Tobacco user Tobacco use type: Cigarette Cigarette Packs Per Day: 0.5 Cigarettes Per Day: 10.0 Years Smoked: 13yrs Second Hand Smoke Exposure: Yes Substance Use Type: Marijuana Are you DNR?: No Advance Directives: No Advance Directives Information Provided: Yes Recently lost weight without trying: No Patient : No service: No Sexual orientation: did not discuss. Meds Allergies Allergy/AdvReac Type Severity Reaction Status Date / Time carbamazepine [From TEGRETOL] AdvReac Unknown NAUSEA & Verified 02/15/21 18:13 VOMITING Active Medications: Current Medications Generic Name Dose Route Start Last Admin Trade Name Freq PRN Reason Stop Dose Admin Acetaminophen 650 mg 03/21/21 07:38 Acetaminophen 325 Mg Tablet PO ONCE PRN Pain, Mild (Pain Scale 1-3) Oxycodone HCl 5 mg 03/21/21 07:38 Oxycodone Hcl Immed Release 5 Mg Tablet PO ONCE PRN Pain, Severe (Pain Scale 7-10) Home Medications Medication Instructions Recorded Confirmed Last Taken Type sumatriptan succinate 50 mg tablet 1 tab PO NEEDED PRN 11/05/20 02/19/21 Unknown History omeprazole 20 mg capsule,delayed 20 mg PO DAILY 11/29/20 02/19/21 12/24/20 08:00 History release acetaminophen 500 mg tablet 650 mg PO Q6H PRN 12/10/20 02/19/21 Unknown History albuterol sulfate 90 mcg/actuation 2 puff INHALATION Q6-8H PRN 12/10/20 02/19/21 Unknown History aerosol inhaler (ProAir HFA) ibuprofen 600 mg tablet 600 mg PO Q8H PRN 12/10/20 02/19/21 Unknown History mirtazapine 15 mg tablet 1 tab PO BEDTIME 12/10/20 02/19/21 12/23/20 20:00 History nicotine 21 mg/24 hr daily 1 patch TRANSDERMAL DAILY 12/10/20 02/19/21 Unknown History transdermal patch cetirizine 10 mg tablet 10 mg PO DAILY 12/24/20 02/19/21 12/23/20 09:00 History fluticasone propionate 110 2 puff INHALATION BID 12/24/20 02/19/21 12/24/20 08:00 History mcg/actuation HFA aerosol inhaler (Flovent HFA) fluticasone propionate 50 1 spray INTRANASAL BID 12/24/20 02/19/21 12/24/20 09:00 History mcg/actuation nasal spray,suspension hydroxyzine pamoate 50 mg capsule 50 mg PO TID PRN 12/24/20 02/19/21 Unknown History (Vistaril) topiramate 25 mg tablet 1 tab PO BID 12/24/20 02/19/21 12/24/20 08:00 History haloperidol decanoate 50 mg/mL 50 mg IM Q4W 02/15/21 02/19/21 02/13/21 11:00 History intramuscular solution Exam Exam Date and Time: March 21, 2021 0747 Height,Weight and Vital Signs: Height 4 ft 11 in Weight 122.47 kg Last Vital Signs Temp 97.2 F 03/21/21 06:49 Pulse 95 03/21/21 06:49 Resp 19 03/21/21 06:49 BP 125/85 03/21/21 06:49 Pulse Ox 96 03/21/21 06:49 Pertinent Lab Results Pertinent Lab Results: Laboratory Tests 03/21/21 07:20 COVID-19 ([facility]) Negative COVID-19 Clin Com See Note Assessment and Plan Final Anesthetic Review Family History of Problems with Anesthesia: No History of Problems with Anesthesia: No
--- NOTE | 2021-03-21 07:49 | MHC.SHP ---
Pre-Procedural Eval Section A Date of Service: 03/21/21 The patient is an INPATIENT: No Changes since office visit: Yes Patient answered all questions; No Cold of Flu in the past 2 weeks, No New Medical Problems and No Changes in Medication Section B Chief Complaint: depression Allergies: Allergies Allergy/AdvReac Type Severity Reaction Status Date / Time carbamazepine [From TEGRETOL] AdvReac Unknown NAUSEA & Verified 02/15/21 18:13 VOMITING Plan I have reviewed the history and physical and performed a pertinent physical examination on my patient. No changes have occurred unless specified.
--- NOTE | 2021-03-21 07:50 | HO.ECTPROC ---
ECT Procedure Note Diagnosis/Treatment Date of Service: 03/21/21 Diagnosis: Major Depressive Disorder and Other (PTSD) Previous ECT Date: 03/07/21 Treatment: Maintenance Interval Clinical Notes: PT STATES FEELS SAFE NOT OVERLY DEPRESSED HAS DAILY LARYNGITIS ACUTE RAPID COVID TEST NEG ECT Settings Device: THYMATRON DGx Electrode Placement: Bifrontal Program/Pulse Width: 0.50 Energy Percent: 100 Seizure Duration By EEG (in seconds): 23 Medications Administration General Anesthetic: Etomidate (12) Muscle Relaxant: Succinylcholine (100) Ancillary Medications Analgesics: Torodol - Pre ECT Anti-emetics: Zofran - Pre ECT Miscillaneous Medications: Propofol Airway Management Airway Management: Bag Mask Ventilation Treatment Recommendations Notes: CONSIDER CHANGE TO BITEMPORAL GIVEN SHORT SZ CONSIDER FLUMAZENIL Pt Tolerated Procedure w/o Issue: Yes
[2021-03-21 08:04] VITALS: BP 129/80; PULSE 86; RESP 16; TEMP 36.2; O2SAT 95
[2021-03-21 08:09] VITALS: BP 123/74; PULSE 95; RESP 16; O2SAT 96
[2021-03-21 08:15] VITALS: BP 130/76; PULSE 92; RESP 20; O2SAT 97
[2021-03-21 08:19] VITALS: BP 126/71; PULSE 92; RESP 16; O2SAT 97
[2021-03-21 08:36] VITALS: BP 136/64; PULSE 92; RESP 18; TEMP 36.2; O2SAT 96
--- NOTE | 2021-03-21 08:52 | HO.POSTANES ---
Post Anesthesia Evaluation Post Anesthesia Evaluation Vital Signs: Vital Signs Temp Pulse Resp BP Pulse Ox 03/21/21 08:36 97.2 F 92 18 136/64 96 03/21/21 08:19 92 16 126/71 97 03/21/21 08:15 92 20 130/76 97 03/21/21 08:09 95 16 123/74 96 03/21/21 08:04 97.2 F 86 16 129/80 95 03/21/21 06:49 97.2 F 95 19 125/85 96 Anesthesia: General Mental Status: Awake Pain Control: Satisfactory Nausea/Vomiting: None Hydration: Adequate Anesthesia-Related Issues: No Anes. Related Issues
== END 2021-03-21 09:25 | disposition home or self-care (01) ==
PROVIDERS: PCP Pediatrics; Visit Provider Psychiatry & Neurology Psychiatry
PROC: (CPT 90870; principal; 2021-03-21 07:00)
DX: F32.9 Major depressive disorder, single episode, unspecified (principal); F43.10 Post-traumatic stress disorder, unspecified; F17.210 Nicotine dependence, cigarettes, uncomplicated; F12.90 Cannabis use, unspecified, uncomplicated; Z88.8 Allergy status to other drugs, medicaments and biological substances; Z79.899 Other long term (current) drug therapy; Z20.822 Contact with and (suspected) exposure to COVID-19
CPT/HCPCS: 36415; 87635; 90870; J0330; J1642; J1885; J2405

== ENCOUNTER 2021-03-30 14:50 | Emergency (ER) | payer OTHER, SELFPAY ==
[2021-03-30 15:18] VITALS: BP 150/88; PULSE 114; RESP 20; TEMP 36.1; O2SAT 97
--- NOTE | 2021-03-30 16:00 | ED_ITS ---
HPI - Psych General Chief Complaint: Psychiatric Symptoms Stated Complaint: crisis Time Seen by Provider: 03/30/21 15:59 Source: patient and old records reviewed Mode of arrival: ambulatory Limitations: no limitations History of Present Illness MD complaint: suicidal ideation and feels depressed Onset (ago): day(s) Duration: constant and getting worse History of same: Yes Relieving factors: none Exacerbating factors: other Context: significant life stressor Associated psychiatric symptoms: depression and suicidal ideation Associated symptoms: denies other symptoms Treatments prior to arrival: none If self harm: admits thoughts of self harm Related Data Home Medications Medication Instructions Recorded Confirmed sumatriptan succinate 50 mg tablet 1 tab PO NEEDED PRN 11/05/20 03/30/21 omeprazole 20 mg capsule,delayed 20 mg PO DAILY 11/29/20 03/30/21 release acetaminophen 500 mg tablet 650 mg PO Q6H PRN 12/10/20 03/30/21 albuterol sulfate 90 mcg/actuation 2 puff INHALATION Q6-8H PRN 12/10/20 03/30/21 aerosol inhaler (ProAir HFA) nicotine 21 mg/24 hr daily 1 patch TRANSDERMAL DAILY 12/10/20 03/30/21 transdermal patch cetirizine 10 mg tablet 10 mg PO DAILY 12/24/20 03/30/21 fluticasone propionate 110 2 puff INHALATION BID 12/24/20 03/30/21 mcg/actuation HFA aerosol inhaler (Flovent HFA) fluticasone propionate 50 1 spray INTRANASAL BID 12/24/20 03/30/21 mcg/actuation nasal spray,suspension topiramate 25 mg tablet 1 tab PO BID 12/24/20 03/30/21 albuterol sulfate 90 mcg/actuation 2 puff INHALATION Q4H PRN 03/30/21 03/30/21 aerosol inhaler (Ventolin HFA) benztropine 1 mg tablet 1 mg PO BID 03/30/21 03/30/21 buspirone 30 mg tablet 30 mg PO BID 03/30/21 03/30/21 clonidine HCl 0.1 mg tablet 0.1 mg PO BID 03/30/21 03/30/21 cyclobenzaprine 5 mg tablet 5 mg PO BEDTIME PRN 03/30/21 03/30/21 diphenhydramine HCl 50 mg capsule 50 mg PO BEDTIME PRN 03/30/21 03/30/21 docusate sodium 100 mg capsule 100 mg PO BID 03/30/21 03/30/21 (Colace) gabapentin 300 mg capsule 600 mg PO BID 03/30/21 03/30/21 haloperidol decanoate 100 mg/mL 100 mg IM Q OTHER DAY 03/30/21 03/30/21 intramuscular solution (Haldol Decanoate) lorazepam 1 mg tablet 1 mg PO QID PRN 03/30/21 03/30/21 prazosin 2 mg capsule 2 mg PO BEDTIME 03/30/21 03/30/21 quetiapine 100 mg tablet 600 mg PO BEDTIME 03/30/21 03/30/21 sulindac 200 mg tablet 200 mg PO BID 03/30/21 03/30/21 venlafaxine 150 mg 150 mg PO QAM 03/30/21 03/30/21 capsule,extended release 24 hr venlafaxine 75 mg tablet,extended 75 mg PO QAM 03/30/21 03/30/21 release 24 hr zolpidem 12.5 mg tablet,extended 1 tab PO BEDTIME 03/30/21 03/30/21 release,multiphase Previous Rx's Medication Instructions Recorded chlorpromazine 100 mg tablet 100 mg PO BEDTIME #30 tab 08/19/20 haloperidol 5 mg tablet 5 mg PO BID PRN 30 Days #60 tab 08/19/20 trazodone 50 mg tablet 50 mg PO BEDTIME PRN 30 Days #30 08/19/20 tab leg brace #1 ea 11/14/20 ondansetron 4 mg disintegrating 4 mg PO Q8H PRN #20 tab 02/04/21 tablet Allergies Allergy/AdvReac Type Severity Reaction Status Date / Time carbamazepine [From TEGRETOL] AdvReac Unknown NAUSEA & Verified 02/15/21 18:13 VOMITING Review of Systems Review of Systems: Constitutional : No Fever, No Chills ENT/Mouth : No Ear Pain, No Nasal Congestion, No sore throat Eyes: No Eye Pain, No Swelling, No Redness Cardiovascular : No Chest Pain, No SOB Respiratory : No Cough, No Sputum, No Dyspnea Gastrointestinal : No Nausea, No Vomiting, No Diarrhea, No Hematochezia, No Melena Genitourinary : No Dysuria, No Urinary Frequency, No Hematuria Musculoskeletal : No Myalgias Skin : No Skin Lesions, No rash Neuro : No Weakness, No Numbness, No Paresthesias, No Dizziness, No Headache Psych : positive Anxiety, positive Depression, positive SI no HI Heme/Lymph: No Lymphadenopathy Endocrine : No Polyuria, No Polydipsia All other systems reviewed and are negative [facility] Past Medical History Attestation statement: The following information was validated with the patient. Medical History Acute post-traumatic stress disorder Adjustment disorder Anxiety Asthma Borderline personality disorder Chronic post-traumatic stress disorder (PTSD) COPD (chronic obstructive pulmonary disease) Depression GERD (gastroesophageal reflux disease) Increased BMI Injury, self-inflicted Intentional self-harm PTSD (post-traumatic stress disorder) Recurrent major depression-severe Schizoaffective disorder Self-harming behavior Suicidal ideation Suicidal ideation Social History Social History Household Members: None Household Members Other:: shelter Housing: House Do you presently have visiting nurse or other home services: Yes Alcohol intake: never Patient Tobacco Use Status: Current everyday Tobacco user Tobacco use type: Cigarette Cigarette Packs Per Day: 0.5 Cigarettes Per Day: 10.0 Years Smoked: 13yrs Second Hand Smoke Exposure: Yes Substance Use Type: Marijuana Advance Directives: No Advance Directives Information Provided: No Patient : No service: No Sexual orientation: did not discuss. Physical Exam Vital Signs: Vital Signs: Last Vital Signs Temp 98.6 F 03/30/21 17:08 Pulse 88 03/30/21 17:08 Resp 18 03/30/21 17:08 BP 126/88 03/30/21 17:08 Pulse Ox 98 03/30/21 17:08 Body Mass Index 48.8 Appearance: Alert. Oriented X3. No acute distress. Rubbing feet together Eyes: Pupils equal, round and reactive to light. ENT: Pharynx normal. Neck: Normal inspection. Neck supple. CVS: Normal heart rate and rhythm. Pulses normal. Respiratory: No respiratory distress. Breath sounds normal. Abdomen: Soft and nontender. Skin: Skin warm and dry. Normal skin color. Normal skin turgor. Extremities: No lower extremity edema. No calf ttp Neuro: Oriented X 3. No motor deficit. No sensory deficit. CN2-12 intact Psych: withdrawn, flat affect, rocking back and forth, rubbing hands and feet together Course Course Course Narrative: patient became agitated refused PO ativan, IM zyprexa ordered for agitation and striking herself in the head, unable to reassure her. Physician observation started at 516pm Patient placed in physician observation because the patient needed more time for BHN to evaluate the patient for possible inpatient psych stay. At the time observation was started the patient's vitals were stable, patient is alert and oriented but slightly agitated, Neuro: nonfocal, CV RRR, Lungs clear signed out pending BHN assessment MDM - Psych MDM Narrative Medical decision making narrative: 36 yo female well known to us for mental health issues comes to us in crisis - at this time will need labs, BHN consult, PRN ativan. Dispo per results and BHN assessment Lab Data Result diagrams: 03/30/21 17:05 03/30/21 17:05 Labs: Lab Results 03/30/21 03/30/21 03/30/21 Range/Units 17:05 17:05 17:05 WBC 10.1 (4.8-10.8) X10*3/uL RBC 3.78 L (4.20-5.50) X10*6/uL Hgb 9.3 L (12.0-16.0) g/dl Hct 30.1 L (37-47) % MCV 79.6 L (80-98) fL MCH 24.6 L (27.0-33.0) pg MCHC 30.9 L (31.0-35.0) g/dl RDW 16.9 H (11.0-16.0) % Plt Count 316 (160-400) X10*3/uL MPV 10.3 (9.4-12.3) fL Immature Gran % (Auto) 0.3 (0.0-0.4) % Neut % (Auto) 71.7 (45-73) % Lymph % (Auto) 22.0 (20-40) % [place] % (Auto) 5.7 (2-11) % Eos % (Auto) 0.2 (0-4) % Baso % (Auto) 0.1 (0-2) % Lymph # (Auto) 2.2 (1.2-4.9) X10*3/uL [place] # (Auto) 0.6 (0.1-1.2) X10*3/uL Eos # (Auto) 0.0 (0.0-0.4) X10*3/uL Baso # (Auto) 0.0 (0.0-0.2) X10*3/uL Abs Immat Gran (auto) 0.03 (0.00-0.03) X10*3/uL Absolute Neuts (auto) 7.2 (2.0-8.3) X10*3/uL Absolute Nucleated RBC 0.000 (0.0-0.012) X10*3/uL Nucleated RBC % (auto) 0.0 (0.0-0.2) /100WBC Sodium 140 (135-145) mmol/L Potassium 3.8 (3.3-5.1) mmol/L Chloride 114 H (96-108) mmol/L Carbon Dioxide 19 L (22-29) mmol/L Anion Gap 11 L (12-20) BUN 9 (9-16) mg/dL Creatinine 0.84 (0.5-1.4) mg/dL Estim Creat Clear Calc 120.1 Estimated GFR > 60 Random Glucose 100 (60-115) mg/dL Calcium 8.7 (8.4-10.2) mg/dL Total Bilirubin 0.3 (0.0-1.0) mg/dL Direct Bilirubin < 0.2 (0.0-0.5) mg/dL AST 11 (5-31) U/L ALT 11 (0-31) U/L Alkaline Phosphatase 65 (39-117) U/L Total Protein 6.1 L (6.5-8.0) g/dL Albumin 3.7 (3.5-5.0) g/dL COVID-19 (RAFAL) Negative (Negative) COVID-19 Clin Com See Note Discharge Plan Discharge Clinical Impression: Suicidal ideation Prescriptions: No Action sumatriptan succinate 50 mg tablet 1 tab PO NEEDED PRN (Reason: Migraine Headache) RF: 0 omeprazole 20 mg capsule,delayed release(DR/EC) 20 mg PO DAILY RF: 0 ondansetron 4 mg tablet,disintegrating 4 mg PO Q8H PRN (Reason: nausea and vomiting) Qty: 20 RF: 0 chlorpromazine 100 mg Tablet 100 mg PO BEDTIME Qty: 30 RF: 0 trazodone 50 mg Tablet 50 mg PO BEDTIME PRN (Reason: Insomnia) 30 Days Qty: 30 RF: 0 haloperidol 5 mg Tablet 5 mg PO BID PRN (Reason: psychosis) 30 Days Qty: 60 RF: 0 albuterol sulfate [ProAir HFA] 90 mcg/actuation HFA aerosol inhaler 2 puff inhalation Q6-8H PRN (Reason: Wheezing) RF: 0 acetaminophen 500 mg Tablet 650 mg PO Q6H PRN (Reason: Pain) RF: 0 nicotine 21 mg/24 hr Patch 24 Hour 1 patch TRANSDERMAL DAILY RF: 0 cetirizine 10 mg Tablet 10 mg PO DAILY RF: 0 fluticasone propionate 50 mcg/actuation spray,suspension 1 spray intranasal BID RF: 0 topiramate 25 mg tablet 1 tab PO BID RF: 0 Flovent HFA 110 mcg/actuation HFA aerosol inhaler 2 puff inhalation BID RF: 0 zolpidem 12.5 mg tablet,ext release multiphase 1 tab PO BEDTIME RF: 0 benztropine 1 mg Tablet 1 mg PO BID RF: 0 buspirone 30 mg Tablet 30 mg PO BID RF: 0 docusate sodium [Colace] 100 mg capsule 100 mg PO BID RF: 0 prazosin 2 mg Capsule 2 mg PO BEDTIME RF: 0 quetiapine 100 mg Tablet 600 mg PO BEDTIME RF: 0 sulindac 200 mg Tablet 200 mg PO BID RF: 0 haloperidol decanoate [Haldol Decanoate] 100 mg/mL solution 100 mg IM Q OTHER DAY RF: 0 gabapentin 300 mg capsule 600 mg PO BID RF: 0 clonidine HCl 0.1 mg tablet 0.1 mg PO BID RF: 0 venlafaxine 150 mg Capsule,Extended Release 24hr 150 mg PO QAM RF: 0 venlafaxine 75 mg Tablet Extended Release 24hr 75 mg PO QAM RF: 0 diphenhydramine HCl [Benadryl] 50 mg Capsule 50 mg PO BEDTIME PRN (Reason: Insomnia) RF: 0 lorazepam 1 mg tablet 1 mg PO QID PRN (Reason: Anxiety/Restlessness ) RF: 0 cyclobenzaprine 5 mg Tablet 5 mg PO BEDTIME PRN (Reason: Muscle Spasm) RF: 0 albuterol sulfate [Ventolin HFA] 90 mcg/actuation HFA aerosol inhaler 2 puff inhalation Q4H PRN (Reason: wheezing) RF: 0 (DME) leg brace Misc See Rx Instructions miscellaneous .MEDSUPPLY Qty: 1 RF: 0
[2021-03-30] MEDS: OLANZapine 10 MG VIAL 5 MG IM (16:25)
[2021-03-30 17:08] VITALS: BP 126/88; PULSE 88; RESP 18; TEMP 37; O2SAT 98; BMI 48.8
[2021-03-30 17:11] LABS: MANUAL DIFF FLAG NO
[2021-03-30 17:12] LABS: Basophils Percent Auto 0.1 % (0-2); Eosinophils Percent Auto 0.2 % (0-4); Hematocrit 30.1 % (37-47); Hemoglobin 9.3 g/dl (12.0-16.0); Imm Gran Abs Auto 0.03 X10*3/uL (0.00-0.03); Imm Gran Pct Auto 0.3 % (0.0-0.4); Lymphocytes Absolute Auto 2.2 X10*3/uL (1.2-4.9); Mean Corpuscular HGB Conc 30.9 g/dl (31.0-35.0); Mean Corpuscular Hemoglobin 24.6 pg (27.0-33.0); Mean Corpuscular Volume 79.6 fL (80-98); Mean Platelet Volume 10.3 fL (9.4-12.3); Monocytes Absolute Auto 0.6 X10*3/uL (0.1-1.2); Monocytes Percent Auto 5.7 % (2-11); Neutrophils Absolute Auto 7.2 X10*3/uL (2.0-8.3); Neutrophils Percent Auto 71.7 % (45-73); Platelet Count 316 X10*3/uL (160-400); Red Blood Count 3.78 X10*6/uL (4.20-5.50); Red Cell Distribution Width 16.9 % (11.0-16.0); White Blood Count 10.1 X10*3/uL (4.8-10.8)
[2021-03-30 17:32] LABS: COVID-19 Test Negative (Negative)
[2021-03-30 17:38] LABS: Alanine Aminotransferase 11 U/L (0-31); Albumin Level 3.7 g/dL (3.5-5.0); Alkaline Phosphatase 65 U/L (39-117); Anion Gap 11 (12-20); Aspartate Amino Transferase 11 U/L (5-31); Bilirubin Direct < 0.2 mg/dL (0.0-0.5); Bilirubin Total 0.3 mg/dL (0.0-1.0); Blood Urea Nitrogen 9 mg/dL (9-16); Calcium 8.7 mg/dL (8.4-10.2); Carbon Dioxide 19 mmol/L (22-29); Chloride 114 mmol/L (96-108); Creatinine Clr Calc Pharmacy 120.1; Estimated Glomerular Filt Rate > 60; Glucose Random 100 mg/dL (60-115); Potassium 3.8 mmol/L (3.3-5.1); Sodium 140 mmol/L (135-145); Total Protein 6.1 g/dL (6.5-8.0)
--- NOTE | 2021-03-30 18:27 | PC.NURSE ---
attempted to call [facility] which is now closed. will attempt [facility]
--- NOTE | 2021-03-30 23:51 | PC.NURSE ---
Patient is s/p chemical restraint, patient appears sleeping, patient is being watched on 1:1 for safety, night time medication not administered due to patient sleeping, will continue to monitor.
[2021-03-31] MEDS: traZODone HCL 50 MG TABLET PO (01:07)
[2021-03-31] MEDS: HaloperidoL 5 MG TABLET PO (01:07)
[2021-03-31] MEDS: LORazepam 1 MG TABLET PO (01:07)
== END 2021-03-31 01:55 | disposition home or self-care (01) ==
PROVIDERS: Emergency Provider Emergency Medicine; PCP Pediatrics
DX: F33.1 Major depressive disorder, recurrent, moderate (principal); R45.851 Suicidal ideations; F17.210 Nicotine dependence, cigarettes, uncomplicated; Z79.899 Other long term (current) drug therapy; Z71.6 Tobacco abuse counseling; Z20.822 Contact with and (suspected) exposure to COVID-19
CPT/HCPCS: 36415; 80048; 80076; 85025; 87635; 96372; 99283; 99285

== ENCOUNTER 2021-04-02 18:48 | Emergency (ER) | payer OTHER, SELFPAY ==
[2021-04-02 18:56] VITALS: BP 147/83; PULSE 102; RESP 18; TEMP 36.7; O2SAT 97; BMI 54.5
--- NOTE | 2021-04-02 20:11 | ED_ITS ---
HPI - Psych General Chief Complaint: Psychiatric Symptoms Stated Complaint: crisis Time Seen by Provider: 04/02/21 20:07 Source: patient and EMS Mode of arrival: EMS Limitations: no limitations and other History of Present Illness HPI Narrative: Patient comes to the emergency room complaining of suicidal thoughts. Patient denies homicidal ideation. Patient coming from a nursing home, states that she has been having cutting her left forearm which she has done before. Patient states that she is compliant with her psychiatric medications MD complaint: suicidal ideation Related Data Home Medications Medication Instructions Recorded Confirmed omeprazole 20 mg capsule,delayed 20 mg PO DAILY 11/29/20 03/30/21 release acetaminophen 500 mg tablet 650 mg PO Q6H PRN 12/10/20 04/02/21 albuterol sulfate 90 mcg/actuation 2 puff INHALATION Q6-8H PRN 12/10/20 04/02/21 aerosol inhaler (ProAir HFA) nicotine 21 mg/24 hr daily 1 patch TRANSDERMAL DAILY 12/10/20 03/30/21 transdermal patch cetirizine 10 mg tablet 10 mg PO DAILY 12/24/20 04/02/21 fluticasone propionate 110 2 puff INHALATION BID 12/24/20 03/30/21 mcg/actuation HFA aerosol inhaler (Flovent HFA) fluticasone propionate 50 1 spray INTRANASAL BID 12/24/20 03/30/21 mcg/actuation nasal spray,suspension albuterol sulfate 90 mcg/actuation 2 puff INHALATION Q4H PRN 03/30/21 04/02/21 aerosol inhaler (Ventolin HFA) benztropine 1 mg tablet 1 mg PO BID 03/30/21 04/02/21 buspirone 30 mg tablet 30 mg PO BID 03/30/21 04/02/21 clonidine HCl 0.1 mg tablet 0.1 mg PO BID 03/30/21 04/02/21 cyclobenzaprine 5 mg tablet 5 mg PO BEDTIME PRN 03/30/21 04/02/21 diphenhydramine HCl 50 mg capsule 50 mg PO BEDTIME PRN 03/30/21 03/30/21 docusate sodium 100 mg capsule 100 mg PO BID 03/30/21 03/30/21 (Colace) gabapentin 300 mg capsule 600 mg PO BID 03/30/21 04/02/21 haloperidol decanoate 100 mg/mL 100 mg IM Q OTHER DAY 03/30/21 03/30/21 intramuscular solution (Haldol Decanoate) lorazepam 1 mg tablet 1 mg PO QID PRN 03/30/21 03/30/21 prazosin 2 mg capsule 2 mg PO BEDTIME 03/30/21 03/30/21 quetiapine 100 mg tablet 600 mg PO BEDTIME 03/30/21 03/30/21 sulindac 200 mg tablet 200 mg PO BID 03/30/21 03/30/21 venlafaxine 150 mg 150 mg PO QAM 03/30/21 03/30/21 capsule,extended release 24 hr venlafaxine 75 mg tablet,extended 75 mg PO QAM 03/30/21 03/30/21 release 24 hr zolpidem 12.5 mg tablet,extended 1 tab PO BEDTIME 03/30/21 03/30/21 release,multiphase Previous Rx's Medication Instructions Recorded haloperidol 5 mg tablet 5 mg PO BID PRN 30 Days #60 tab 08/19/20 trazodone 50 mg tablet 50 mg PO BEDTIME PRN 30 Days #30 08/19/20 tab leg brace #1 ea 11/14/20 ondansetron 4 mg disintegrating 4 mg PO Q8H PRN #20 tab 02/04/21 tablet Allergies Allergy/AdvReac Type Severity Reaction Status Date / Time carbamazepine [From TEGRETOL] AdvReac Unknown NAUSEA & Verified 04/02/21 18:56 VOMITING PMFSH Past Medical History Medical History Acute post-traumatic stress disorder Adjustment disorder Anxiety Asthma Borderline personality disorder Chronic post-traumatic stress disorder (PTSD) COPD (chronic obstructive pulmonary disease) Depression GERD (gastroesophageal reflux disease) Increased BMI Injury, self-inflicted Intentional self-harm PTSD (post-traumatic stress disorder) Recurrent major depression-severe Schizoaffective disorder Self-harming behavior Suicidal ideation Suicidal ideation Social History Social History Household Members: None Household Members Other:: nursing home Housing: House Do you presently have visiting nurse or other home services: Yes Alcohol intake: never Patient Tobacco Use Status: Current everyday Tobacco user Tobacco use type: Cigarette Cigarette Packs Per Day: 0.5 Cigarettes Per Day: 10.0 Years Smoked: 13yrs Second Hand Smoke Exposure: Yes Substance Use Type: Marijuana Advance Directives: No Advance Directives Information Provided: No Patient : No service: No Sexual orientation: did not discuss. Physical Exam Vital Signs: Vital Signs: Last Vital Signs Temp 98.0 F 04/02/21 18:56 Pulse 102 H 04/02/21 18:56 Resp 18 04/02/21 18:56 BP 147/83 H 04/02/21 18:56 Pulse Ox 97 04/02/21 18:56 Body Mass Index 54.5 Const: Other: Appearance: Alert. Teary, unwilling to talk much Eyes: Pupils equal, round and reactive to light. ENT: Pharynx normal. Neck: Normal inspection. Neck supple. No lymph nodes noted. No crepitus CVS: Normal heart rate and rhythm. Pulses normal. Normal S1 and S2 Respiratory: No respiratory distress. Breath sounds normal. No Wheezing. No rales Abdomen: Soft and nontender. No rigidity. No distention. good BS x4 Skin: Skin warm and dry. Patient has superficial lacerations to the left forearm Extremities: No lower extremity edema. No lower extremity edema, see skin above. Neuro: Oriented X 3. Cranial nerves 2-12 grossly intact. No motor deficit. No sensory deficit. Moving all extermities. No slurred speech. Course Course Course Narrative: [facility]. Physician laceration started at 20:15 Discharge Plan Discharge Clinical Impression: Self-inflicted injury, Suicide ideation Prescriptions: No Action omeprazole 20 mg capsule,delayed release(DR/EC) 20 mg PO DAILY RF: 0 ondansetron 4 mg tablet,disintegrating 4 mg PO Q8H PRN (Reason: nausea and vomiting) Qty: 20 RF: 0 trazodone 50 mg Tablet 50 mg PO BEDTIME PRN (Reason: Insomnia) 30 Days Qty: 30 RF: 0 haloperidol 5 mg Tablet 5 mg PO BID PRN (Reason: psychosis) 30 Days Qty: 60 RF: 0 albuterol sulfate [ProAir HFA] 90 mcg/actuation HFA aerosol inhaler 2 puff inhalation Q6-8H PRN (Reason: Wheezing) RF: 0 acetaminophen 500 mg Tablet 650 mg PO Q6H PRN (Reason: Pain) RF: 0 nicotine 21 mg/24 hr Patch 24 Hour 1 patch TRANSDERMAL DAILY RF: 0 cetirizine 10 mg Tablet 10 mg PO DAILY RF: 0 fluticasone propionate 50 mcg/actuation spray,suspension 1 spray intranasal BID RF: 0 Flovent HFA 110 mcg/actuation HFA aerosol inhaler 2 puff inhalation BID RF: 0 zolpidem 12.5 mg tablet,ext release multiphase 1 tab PO BEDTIME RF: 0 benztropine 1 mg Tablet 1 mg PO BID RF: 0 buspirone 30 mg Tablet 30 mg PO BID RF: 0 docusate sodium [Colace] 100 mg capsule 100 mg PO BID RF: 0 prazosin 2 mg Capsule 2 mg PO BEDTIME RF: 0 quetiapine 100 mg Tablet 600 mg PO BEDTIME RF: 0 sulindac 200 mg Tablet 200 mg PO BID RF: 0 haloperidol decanoate [Haldol Decanoate] 100 mg/mL solution 100 mg IM Q OTHER DAY RF: 0 gabapentin 300 mg capsule 600 mg PO BID RF: 0 clonidine HCl 0.1 mg tablet 0.1 mg PO BID RF: 0 venlafaxine 150 mg Capsule,Extended Release 24hr 150 mg PO QAM RF: 0 venlafaxine 75 mg Tablet Extended Release 24hr 75 mg PO QAM RF: 0 diphenhydramine HCl [Benadryl] 50 mg Capsule 50 mg PO BEDTIME PRN (Reason: Insomnia) RF: 0 lorazepam 1 mg tablet 1 mg PO QID PRN (Reason: Anxiety/Restlessness ) RF: 0 cyclobenzaprine 5 mg Tablet 5 mg PO BEDTIME PRN (Reason: Muscle Spasm) RF: 0 albuterol sulfate [Ventolin HFA] 90 mcg/actuation HFA aerosol inhaler 2 puff inhalation Q4H PRN (Reason: wheezing) RF: 0 (DME) leg brace Misc See Rx Instructions miscellaneous .MEDSUPPLY Qty: 1 RF: 0
[2021-04-02 21:20] LABS: Glucose Urine UA NEG (NEG); Leukocyte Esterase Urine NEG (NEG); Nitrite Urine NEG (NEG); UACC Culture Trigger NO; Urine Blood 2+ (NEG); Urine Ketones NEG (NEG); Urine Protein NEG (NEG-TRACE)
[2021-04-02 21:24] LABS: Appearance Urine CLEAR; Color Urine YELLOW
[2021-04-02 21:40] LABS: Bacteria Urine 2+ /LPF; RBC Urine 0-2 /HPF (0); Squamous Epithelial Cell Urine TRACE /LPF
[2021-04-02 21:41] LABS: COVID-19 Test Negative (Negative)
[2021-04-02 21:54] LABS: Amphetamine Screen Urine Not Detected (Not Detect); Barbiturates, Urine Not Detected (Not Detect); Benzodiazepines Screen Urine Not Detected (Not Detect); Cannabinoid Screen Urine POSITIVE (Not Detect); Cocaine Screen Urine Not Detected (Not Detect); Fentanyl, urine POSITIVE (Not Detect); Opiate Screen Urine Not Detected (Not Detect); Phencyclidine Screen Urine Not Detected (Not Detect)
[2021-04-03 03:47] VITALS: BP 113/69; PULSE 81; RESP 16; TEMP 36; O2SAT 95
--- NOTE | 2021-04-03 06:03 | PC.NURSE ---
Patient slept through the night, no distress observed/reported, patient was under close observation for unsafe behavior, med rec completed needs provider's approval, BHN referral completed via smart sheet, called/spoke/confirmed with Adriana, patient will be seen in the morning, VSS, behavior calm and quiet, will continue to monitor.
--- NOTE | 2021-04-03 07:14 | PC.NURSE ---
patient appeared in no distress remained asleep at beginning of shift, patient awake now and starting adl's (using restroom)
== END 2021-04-03 10:42 | disposition home or self-care (01) ==
PROVIDERS: Emergency Provider Emergency Medicine; PCP Pediatrics
DX: R45.851 Suicidal ideations (principal); S51.812A Laceration without foreign body of left forearm, initial encounter; X78.9XXA Intentional self-harm by unspecified sharp object, initial encounter; F25.9 Schizoaffective disorder, unspecified; F43.10 Post-traumatic stress disorder, unspecified; F60.3 Borderline personality disorder; F12.90 Cannabis use, unspecified, uncomplicated; F17.210 Nicotine dependence, cigarettes, uncomplicated; Y93.9 Activity, unspecified; Y92.049 Unspecified place in boarding-house as the place of occurrence of the external cause; Y99.9 Unspecified external cause status; Z91.5 Personal history of self-harm; Z79.899 Other long term (current) drug therapy
CPT/HCPCS: 36415; 80307; 81001; 87635; 99283; 99285

== ENCOUNTER 2021-04-04 07:46 | Day surgery (SDC) | payer OTHER, SELFPAY ==
[2021-04-04] VITALS (7 sets, daily range): BP systolic 110–137; BP diastolic 60–84; PULSE 84–98; RESP 16–18; TEMP 36.1–36.4; O2SAT 96–99; BMI 53.5
--- NOTE | 2021-04-04 08:24 | HO.ANESPROP2 ---
[facility] Active Problems Active Problems: All Active Problems (Updated 04/04/21 @ 00:01 by Adiel Sevilla) Chronic post-traumatic stress disorder (PTSD) (Chronic) Sprain of anterior cruciate ligament of right knee (Acute) Self-inflicted injury (Acute) Lacerations of multiple sites of right arm (Acute) Injury of ligament of right knee (Acute) Increased BMI (Acute) GERD (gastroesophageal reflux disease) (Acute) Recurrent major depression-severe (Chronic) Borderline personality disorder (Chronic) Past Medical History Medical History Acute post-traumatic stress disorder Adjustment disorder Anxiety Asthma Borderline personality disorder Chronic post-traumatic stress disorder (PTSD) COPD (chronic obstructive pulmonary disease) Depression GERD (gastroesophageal reflux disease) Increased BMI Injury, self-inflicted Intentional self-harm PTSD (post-traumatic stress disorder) Recurrent major depression-severe Schizoaffective disorder Self-harming behavior Suicidal ideation Suicidal ideation Functional capacity: independent ambulation Patient : No Family History Family history of problems with anesthesia: No Surgical History History of Problems with Anesthesia: No Social History Social History Household Members: None Household Members Other:: detention Housing: House Do you presently have visiting nurse or other home services: Yes Alcohol intake: never Patient Tobacco Use Status: Current everyday Tobacco user Tobacco use type: Cigarette Cigarette Packs Per Day: 0.5 Cigarettes Per Day: 5 Years Smoked: 17 Smoked in Last 30 Days: Yes Second Hand Smoke Exposure: Yes Use of substances other than those prescribed or required for medical reasons: No Substance Use Type: Marijuana Are you DNR?: No Advance Directives: No Advance Directives Information Provided: Yes service: No Sexual orientation: did not discuss. Meds Allergies Allergy/AdvReac Type Severity Reaction Status Date / Time carbamazepine [From TEGRETOL] AdvReac Unknown NAUSEA & Verified 04/04/21 08:00 VOMITING Home Medications Medication Instructions Recorded Confirmed Last Taken Type omeprazole 20 mg capsule,delayed 20 mg PO DAILY 11/29/20 03/30/21 12/24/20 08:00 History release acetaminophen 500 mg tablet 650 mg PO Q6H PRN 12/10/20 04/02/21 Unknown History albuterol sulfate 90 mcg/actuation 2 puff INHALATION Q6-8H PRN 12/10/20 04/02/21 Unknown History aerosol inhaler (ProAir HFA) nicotine 21 mg/24 hr daily 1 patch TRANSDERMAL DAILY 12/10/20 03/30/21 Unknown History transdermal patch cetirizine 10 mg tablet 10 mg PO DAILY 12/24/20 04/02/21 12/23/20 09:00 History fluticasone propionate 110 2 puff INHALATION BID 12/24/20 03/30/21 12/24/20 08:00 History mcg/actuation HFA aerosol inhaler (Flovent HFA) fluticasone propionate 50 1 spray INTRANASAL BID 12/24/20 03/30/21 12/24/20 09:00 History mcg/actuation nasal spray,suspension albuterol sulfate 90 mcg/actuation 2 puff INHALATION Q4H PRN 03/30/21 04/02/21 Unknown History aerosol inhaler (Ventolin HFA) benztropine 1 mg tablet 1 mg PO BID 03/30/21 04/02/21 03/30/21 07:00 History buspirone 30 mg tablet 30 mg PO BID 03/30/21 04/02/21 03/30/21 08:00 History clonidine HCl 0.1 mg tablet 0.1 mg PO BID 03/30/21 04/02/21 03/30/21 08:00 History cyclobenzaprine 5 mg tablet 5 mg PO BEDTIME PRN 03/30/21 04/02/21 Unknown History diphenhydramine HCl 50 mg capsule 50 mg PO BEDTIME PRN 03/30/21 03/30/21 Unknown History docusate sodium 100 mg capsule 100 mg PO BID 03/30/21 03/30/21 03/30/21 08:00 History (Colace) gabapentin 300 mg capsule 600 mg PO BID 03/30/21 04/02/21 03/30/21 08:00 History haloperidol decanoate 100 mg/mL 100 mg IM Q OTHER DAY 03/30/21 03/30/21 03/18/21 10:00 History intramuscular solution (Haldol Decanoate) lorazepam 1 mg tablet 1 mg PO QID PRN 03/30/21 03/30/21 Unknown History prazosin 2 mg capsule 2 mg PO BEDTIME 03/30/21 03/30/21 03/29/21 20:00 History quetiapine 100 mg tablet 600 mg PO BEDTIME 03/30/21 03/30/21 03/29/21 22:00 History sulindac 200 mg tablet 200 mg PO BID 03/30/21 03/30/21 03/30/21 08:00 History venlafaxine 150 mg 150 mg PO QAM 03/30/21 03/30/21 03/30/21 08:00 History capsule,extended release 24 hr venlafaxine 75 mg tablet,extended 75 mg PO QAM 03/30/21 03/30/21 03/30/21 08:00 History release 24 hr zolpidem 12.5 mg tablet,extended 1 tab PO BEDTIME 03/30/21 03/30/21 03/29/21 22:00 History release,multiphase Exam Exam Date and Time: April 04, 2021 0824 Height,Weight and Vital Signs: Height 4 ft 11 in Weight 120.202 kg Last Vital Signs Temp 97.2 F 04/04/21 08:02 Pulse 98 04/04/21 08:02 Resp 16 04/04/21 08:02 BP 137/80 04/04/21 08:02 Pulse Ox 98 04/04/21 08:02 Airway TM Dist: >3cm Neck ROM: Full Heart: RRR Lungs: CTA Assessment and Plan Final Anesthetic Review Family History of Problems with Anesthesia: No History of Problems with Anesthesia: No
--- NOTE | 2021-04-04 09:07 | MHC.SHP ---
Pre-Procedural Eval Section A Date of Service: 04/04/21 The patient is an INPATIENT: No Changes since office visit: No Cold of Flu in the past 2 weeks, No New Medical Problems, No Changes in Medication and No Patient answered all questions The History & Physical has been completed within 30 days and I have reviewed it.: Yes Section B Chief Complaint: depression Allergies: Allergies Allergy/AdvReac Type Severity Reaction Status Date / Time carbamazepine [From TEGRETOL] AdvReac Unknown NAUSEA & Verified 04/04/21 08:00 VOMITING Plan I have reviewed the history and physical and performed a pertinent physical examination on my patient. No changes have occurred unless specified.
--- NOTE | 2021-04-04 09:08 | P.PCN_ITS ---
ECT Procedure Note Diagnosis/Treatment Date of Service: 04/04/21 Diagnosis: Bipolar disorder Treatment: Series Interval Clinical Notes: The patient reported exacerbation of depression, no self-harming, much better at her new long term. She requested increase of frecuency of ECT to target her depression. ECT Settings Device: THYMATRON DGx Electrode Placement: Bitemporal Program/Pulse Width: 0.50 Energy Percent: 100 Seizure Duration By EEG (in seconds): 25 By Motor Observation (in seconds): 20 Medications Administration General Anesthetic: Etomidate (14) Muscle Relaxant: Succinylcholine (100) Ancillary Medications Analgesics: Torodol - Pre ECT Anti-emetics: Zofran - Pre ECT Airway Management Airway Management: Bag Mask Ventilation Treatment Recommendations No Changes Recommended: No change Notes: Still a small seizure even though that technique was changed to bitemporal. No changes on other medications. Pt Tolerated Procedure w/o Issue: Yes
--- NOTE | 2021-04-04 15:22 | HO.POSTANES ---
Post Anesthesia Evaluation Post Anesthesia Evaluation Vital Signs: Vital Signs Temp Pulse Resp BP Pulse Ox 04/04/21 10:18 97.0 F 89 16 113/60 96 04/04/21 10:03 84 18 114/80 96 04/04/21 09:48 90 18 123/70 99 04/04/21 09:43 95 18 110/75 97 04/04/21 09:38 93 18 120/75 97 04/04/21 09:33 97.6 F 98 18 129/84 98 04/04/21 08:02 97.2 F 98 16 137/80 98 Anesthesia: General Mental Status: Awake Pain Control: Satisfactory Nausea/Vomiting: None Hydration: Adequate Anesthesia-Related Issues: No Anes. Related Issues
== END 2021-04-04 10:38 | disposition home or self-care (01) ==
PROVIDERS: PCP Pediatrics; Visit Provider Psychiatry & Neurology Psychiatry
PROC: (CPT 90870; principal; 2021-04-04 09:30)
DX: F31.30 Bipolar disorder, current episode depressed, mild or moderate severity, unspecified (principal); F17.210 Nicotine dependence, cigarettes, uncomplicated
CPT/HCPCS: 90870; J0330; J1642; J1885; J2405

== ENCOUNTER 2021-04-09 06:10 | Day surgery (SDC) | payer OTHER, SELFPAY ==
[2021-04-09] VITALS (9 sets, daily range): BP systolic 94–128; BP diastolic 42–96; PULSE 74–99; RESP 12–18; TEMP 36.1–36.3; O2SAT 92–100; BMI 53.3
[2021-04-09] MEDS: Lactated Ringers 1,000 ML 50 ML IVCONT (06:40)
[2021-04-09 06:43] LABS: UPreg QC Valid YES; Urine Pregnancy NEGATIVE (NEGATIVE)
--- NOTE | 2021-04-09 07:39 | MHC.SHP ---
Pre-Procedural Eval Section A Date of Service: 04/09/21 Section B Chief Complaint: major depression Details of Present Illness: recurrent depression Relevant Social History: None Present Medications: see Short Stay Collaborative assessment (now on clozapine 150) Medical History: Significant History Allergies: Allergies Allergy/AdvReac Type Severity Reaction Status Date / Time carbamazepine [From TEGRETOL] AdvReac Unknown NAUSEA & Verified 04/04/21 08:00 VOMITING Review of Systems Sugical H&P ROS: Negative: Neurological and Yes, Specify: Respiratory (uses inhaler) and Psychiatric (depression passive si) Exam Surgical H&P Exam: Normal: Heart (rr) and Normal: Lungs (clear ) Plan Diagnosis/Plan: Unchanged I have reviewed the history and physical and performed a pertinent physical examination on my patient. No changes have occurred unless specified.
--- NOTE | 2021-04-09 09:18 | HO.ANESPROP2 ---
HPI - Anesthesia Eval Consult details Narrative: 36 yo female patient for ECT PMFSH Active Problems Active Problems: All Active Problems (Updated 04/04/21 @ 00:01 by Adiel Sevilla) Chronic post-traumatic stress disorder (PTSD) (Chronic) Sprain of anterior cruciate ligament of right knee (Acute) Self-inflicted injury (Acute) Lacerations of multiple sites of right arm (Acute) Injury of ligament of right knee (Acute) Increased BMI (Acute) GERD (gastroesophageal reflux disease) (Acute) Recurrent major depression-severe (Chronic) Borderline personality disorder (Chronic) Past Medical History Medical History Acute post-traumatic stress disorder Adjustment disorder Anxiety Asthma Borderline personality disorder Chronic post-traumatic stress disorder (PTSD) COPD (chronic obstructive pulmonary disease) Depression GERD (gastroesophageal reflux disease) Increased BMI Injury, self-inflicted Intentional self-harm PTSD (post-traumatic stress disorder) Recurrent major depression-severe Schizoaffective disorder Self-harming behavior Suicidal ideation Suicidal ideation Family History Family history of problems with anesthesia: No Surgical History History of Problems with Anesthesia: No Social History Social History Household Members: None Household Members Other:: penitentiary Housing: House Do you presently have visiting nurse or other home services: Yes Alcohol intake: never Patient Tobacco Use Status: Current everyday Tobacco user Tobacco use type: Cigarette Cigarette Packs Per Day: 0.5 Cigarettes Per Day: 5 Years Smoked: 17 Smoked in Last 30 Days: Yes Second Hand Smoke Exposure: Yes Use of substances other than those prescribed or required for medical reasons: No Substance Use Type: Marijuana Are you DNR?: No Advance Directives: No Advance Directives Information Provided: Yes Recently lost weight without trying: No Nutrition Risks: No Nutritional Risk service: No Sexual orientation: did not discuss. Meds Allergies Allergy/AdvReac Type Severity Reaction Status Date / Time carbamazepine [From TEGRETOL] AdvReac Unknown NAUSEA & Verified 04/04/21 08:00 VOMITING Active Medications: Current Medications Generic Name Dose Route Start Last Admin Trade Name Freq PRN Reason Stop Dose Admin Acetaminophen 650 mg 04/09/21 08:00 Acetaminophen 325 Mg Tablet PO ONCE PRN Pain, Mild (Pain Scale 1-3) Lactated Ringer's 1,000 mls @ 50 mls/hr 04/09/21 08:00 04/09/21 06:40 Lr IVCONT 50 mls/hr .Q20H SULEIMAN Administration Ondansetron HCl 4 mg 04/09/21 08:00 Ondansetron Hcl 4 Mg/2 Ml Vial IVPUSH ONCE PRN Nausea and Vomiting Home Medications Medication Instructions Recorded Confirmed Last Taken Type omeprazole 20 mg capsule,delayed 20 mg PO DAILY 11/29/20 03/30/21 12/24/20 08:00 History release acetaminophen 500 mg tablet 650 mg PO Q6H PRN 12/10/20 04/02/21 Unknown History albuterol sulfate 90 mcg/actuation 2 puff INHALATION Q6-8H PRN 12/10/20 04/02/21 Unknown History aerosol inhaler (ProAir HFA) nicotine 21 mg/24 hr daily 1 patch TRANSDERMAL DAILY 12/10/20 03/30/21 Unknown History transdermal patch cetirizine 10 mg tablet 10 mg PO DAILY 12/24/20 04/02/21 12/23/20 09:00 History fluticasone propionate 110 2 puff INHALATION BID 12/24/20 03/30/21 12/24/20 08:00 History mcg/actuation HFA aerosol inhaler (Flovent HFA) fluticasone propionate 50 1 spray INTRANASAL BID 12/24/20 03/30/21 12/24/20 09:00 History mcg/actuation nasal spray,suspension albuterol sulfate 90 mcg/actuation 2 puff INHALATION Q4H PRN 03/30/21 04/02/21 Unknown History aerosol inhaler (Ventolin HFA) benztropine 1 mg tablet 1 mg PO BID 03/30/21 04/02/21 03/30/21 07:00 History buspirone 30 mg tablet 30 mg PO BID 03/30/21 04/02/21 03/30/21 08:00 History clonidine HCl 0.1 mg tablet 0.1 mg PO BID 03/30/21 04/02/21 03/30/21 08:00 History cyclobenzaprine 5 mg tablet 5 mg PO BEDTIME PRN 03/30/21 04/02/21 Unknown History diphenhydramine HCl 50 mg capsule 50 mg PO BEDTIME PRN 03/30/21 03/30/21 Unknown History docusate sodium 100 mg capsule 100 mg PO BID 03/30/21 03/30/21 03/30/21 08:00 History (Colace) gabapentin 300 mg capsule 600 mg PO BID 03/30/21 04/02/21 03/30/21 08:00 History haloperidol decanoate 100 mg/mL 100 mg IM Q OTHER DAY 03/30/21 03/30/21 03/18/21 10:00 History intramuscular solution (Haldol Decanoate) lorazepam 1 mg tablet 1 mg PO QID PRN 03/30/21 03/30/21 Unknown History prazosin 2 mg capsule 2 mg PO BEDTIME 03/30/21 03/30/21 03/29/21 20:00 History quetiapine 100 mg tablet 600 mg PO BEDTIME 03/30/21 03/30/21 03/29/21 22:00 History sulindac 200 mg tablet 200 mg PO BID 03/30/21 03/30/21 03/30/21 08:00 History venlafaxine 150 mg 150 mg PO QAM 03/30/21 03/30/21 03/30/21 08:00 History capsule,extended release 24 hr venlafaxine 75 mg tablet,extended 75 mg PO QAM 03/30/21 03/30/21 03/30/21 08:00 History release 24 hr zolpidem 12.5 mg tablet,extended 1 tab PO BEDTIME 03/30/21 03/30/21 03/29/21 22:00 History release,multiphase Exam Exam Date and Time: April 09, 2021 0918 Height,Weight and Vital Signs: Height 4 ft 11 in Weight 119.748 kg Vital Signs Temp Pulse Resp BP Pulse Ox 97.0 F 99 16 126/96 H 98 04/09/21 06:20 04/09/21 06:20 04/09/21 06:20 04/09/21 06:20 04/09/21 06:20 Pertinent Lab Results Pertinent Lab Results: Laboratory Tests 04/09/21 06:20 Urine Test NEGATIVE Airway Mallampati Class: III TM Dist: >3cm Neck ROM: Full Loose/Missing/Broken Teeth: Yes (Missing, poor dentition bottom front right) Heart: RRR Lungs: CTAB Assessment and Plan Assessment Anesthesia Assessment: Anesthesia Plan Discussed and Chart Reviewed Final Anesthetic Review Family History of Problems with Anesthesia: No History of Problems with Anesthesia: No NPO: Yes ASA Class: III Final Preanesthetic Review: No Changes in Pt Med Stat, Meds/Allgs Chart Reviewed, Consent Obtained/Reviewed and Anes Risks/Benef Reviewed Patient Risk: Intermediate Procedure Risk: Low Assessment/Block/Sedation in SS: Assess/Block/Sedation-SS Anesthetic Plan Anesthetic Plan: GA Disposition: Standard PACU
--- NOTE | 2021-04-09 09:30 | PC.NURSE ---
sitting up in bed drinking tata jorge alberto.
--- NOTE | 2021-04-09 11:24 | HO.ECTPROC ---
ECT Procedure Note Diagnosis/Treatment Date of Service: 04/09/21 Diagnosis: Major Depressive Disorder Treatment: Series Interval Clinical Notes: pt depressed with self harming urges no active si ECT Settings Device: THYMATRON DGx Electrode Placement: Bitemporal Program/Pulse Width: 0.50 Energy Percent: 100 Seizure Duration By EEG (in seconds): 18 Medications Administration General Anesthetic: Etomidate Muscle Relaxant: Succinylcholine Ancillary Medications Analgesics: Torodol - Pre ECT Anti-emetics: Zofran - Pre ECT Miscillaneous Medications: Propofol Treatment Recommendations Pt Tolerated Procedure w/o Issue: Yes
== END 2021-04-09 10:45 | disposition home or self-care (01) ==
PROVIDERS: PCP Pediatrics; Visit Provider Psychiatry & Neurology Psychiatry
PROC: (CPT 90870; principal; 2021-04-09 07:30)
DX: F33.3 Major depressive disorder, recurrent, severe with psychotic symptoms (principal); Z91.5 Personal history of self-harm; F43.10 Post-traumatic stress disorder, unspecified; J45.909 Unspecified asthma, uncomplicated; F17.210 Nicotine dependence, cigarettes, uncomplicated; Z88.8 Allergy status to other drugs, medicaments and biological substances
CPT/HCPCS: 81025; 90870; J0330; J0461; J1642; J1885; J2405

== ENCOUNTER 2021-04-11 06:03 | Day surgery (SDC) | payer OTHER, SELFPAY ==
[2021-04-11] VITALS (7 sets, daily range): BP systolic 116–151; BP diastolic 72–97; PULSE 75–100; RESP 18–20; TEMP 36.5–36.7; O2SAT 92–99; BMI 53.3
--- NOTE | 2021-04-11 07:02 | HO.ANESPROP2 ---
[facility] Active Problems Active Problems: All Active Problems (Updated 04/04/21 @ 00:01 by Adiel Sevilla) Chronic post-traumatic stress disorder (PTSD) (Chronic) Sprain of anterior cruciate ligament of right knee (Acute) Self-inflicted injury (Acute) Lacerations of multiple sites of right arm (Acute) Injury of ligament of right knee (Acute) Increased BMI (Acute) GERD (gastroesophageal reflux disease) (Acute) Recurrent major depression-severe (Chronic) Borderline personality disorder (Chronic) Past Medical History Medical History Acute post-traumatic stress disorder Adjustment disorder Anxiety Asthma Borderline personality disorder Chronic post-traumatic stress disorder (PTSD) COPD (chronic obstructive pulmonary disease) Depression GERD (gastroesophageal reflux disease) Increased BMI Injury, self-inflicted Intentional self-harm PTSD (post-traumatic stress disorder) Recurrent major depression-severe Schizoaffective disorder Self-harming behavior Suicidal ideation Suicidal ideation Surgical History History of Problems with Anesthesia: No Social History Social History Household Members: None Household Members Other:: correction Housing: House Do you presently have visiting nurse or other home services: Yes Alcohol intake: never Patient Tobacco Use Status: Current everyday Tobacco user Tobacco use type: Cigarette Cigarette Packs Per Day: 0.5 Cigarettes Per Day: 5 Years Smoked: 17 Second Hand Smoke Exposure: Yes Substance Use Type: Marijuana service: No Sexual orientation: did not discuss. Meds Allergies Allergy/AdvReac Type Severity Reaction Status Date / Time carbamazepine [From TEGRETOL] AdvReac Unknown NAUSEA & Verified 04/04/21 08:00 VOMITING Home Medications Medication Instructions Recorded Confirmed Last Taken Type omeprazole 20 mg capsule,delayed 20 mg PO DAILY 11/29/20 03/30/21 12/24/20 08:00 History release acetaminophen 500 mg tablet 650 mg PO Q6H PRN 12/10/20 04/02/21 Unknown History albuterol sulfate 90 mcg/actuation 2 puff INHALATION Q6-8H PRN 12/10/20 04/02/21 Unknown History aerosol inhaler (ProAir HFA) nicotine 21 mg/24 hr daily 1 patch TRANSDERMAL DAILY 12/10/20 03/30/21 Unknown History transdermal patch cetirizine 10 mg tablet 10 mg PO DAILY 12/24/20 04/02/21 12/23/20 09:00 History fluticasone propionate 110 2 puff INHALATION BID 12/24/20 03/30/21 12/24/20 08:00 History mcg/actuation HFA aerosol inhaler (Flovent HFA) fluticasone propionate 50 1 spray INTRANASAL BID 12/24/20 03/30/21 12/24/20 09:00 History mcg/actuation nasal spray,suspension albuterol sulfate 90 mcg/actuation 2 puff INHALATION Q4H PRN 03/30/21 04/02/21 Unknown History aerosol inhaler (Ventolin HFA) benztropine 1 mg tablet 1 mg PO BID 03/30/21 04/02/21 03/30/21 07:00 History buspirone 30 mg tablet 30 mg PO BID 03/30/21 04/02/21 03/30/21 08:00 History clonidine HCl 0.1 mg tablet 0.1 mg PO BID 03/30/21 04/02/21 03/30/21 08:00 History cyclobenzaprine 5 mg tablet 5 mg PO BEDTIME PRN 03/30/21 04/02/21 Unknown History diphenhydramine HCl 50 mg capsule 50 mg PO BEDTIME PRN 03/30/21 03/30/21 Unknown History docusate sodium 100 mg capsule 100 mg PO BID 03/30/21 03/30/21 03/30/21 08:00 History (Colace) gabapentin 300 mg capsule 600 mg PO BID 03/30/21 04/02/21 03/30/21 08:00 History haloperidol decanoate 100 mg/mL 100 mg IM Q OTHER DAY 03/30/21 03/30/21 03/18/21 10:00 History intramuscular solution (Haldol Decanoate) lorazepam 1 mg tablet 1 mg PO QID PRN 03/30/21 03/30/21 Unknown History prazosin 2 mg capsule 2 mg PO BEDTIME 03/30/21 03/30/21 03/29/21 20:00 History quetiapine 100 mg tablet 600 mg PO BEDTIME 03/30/21 03/30/21 03/29/21 22:00 History sulindac 200 mg tablet 200 mg PO BID 03/30/21 03/30/21 03/30/21 08:00 History venlafaxine 150 mg 150 mg PO QAM 03/30/21 03/30/21 03/30/21 08:00 History capsule,extended release 24 hr venlafaxine 75 mg tablet,extended 75 mg PO QAM 03/30/21 03/30/21 03/30/21 08:00 History release 24 hr zolpidem 12.5 mg tablet,extended 1 tab PO BEDTIME 03/30/21 03/30/21 03/29/21 22:00 History release,multiphase Exam Exam Date and Time: April 11, 2021 0702 Height,Weight and Vital Signs: Height 4 ft 11 in Weight 119.748 kg Last Vital Signs Temp 97.8 F 04/11/21 06:19 Pulse 100 04/11/21 06:19 Resp 20 04/11/21 06:19 BP 146/84 H 04/11/21 06:19 Pulse Ox 99 04/11/21 06:19 Airway Mallampati Class: II TM Dist: >3cm Neck ROM: Full Heart: RRR Lungs: CTA Assessment and Plan Assessment Anesthesia Assessment: Anesthesia Plan Discussed and Chart Reviewed Final Anesthetic Review History of Problems with Anesthesia: No NPO: Yes ASA Class: III Final Preanesthetic Review: Meds/Allgs Chart Reviewed, Consent Obtained/Reviewed and Anes Risks/Benef Reviewed Patient Risk: Intermediate Procedure Risk: Intermediate Anesthetic Plan Anesthetic Plan: GA Disposition: Standard PACU
--- NOTE | 2021-04-11 07:12 | MHC.SHP ---
Pre-Procedural Eval Section A Date of Service: 04/11/21 The patient is an INPATIENT: No Changes since office visit: Yes Patient answered all questions; No Cold of Flu in the past 2 weeks, No New Medical Problems and No Changes in Medication The History & Physical has been completed within 30 days and I have reviewed it.: Yes Section B Chief Complaint: major depression Allergies: Allergies Allergy/AdvReac Type Severity Reaction Status Date / Time carbamazepine [From TEGRETOL] AdvReac Unknown NAUSEA & Verified 04/04/21 08:00 VOMITING Plan I have reviewed the history and physical and performed a pertinent physical examination on my patient. No changes have occurred unless specified.
--- NOTE | 2021-04-11 07:14 | HO.ECTPROC ---
ECT Procedure Note Diagnosis/Treatment Date of Service: 04/11/21 Diagnosis: Major Depressive Disorder Previous ECT Date: 04/09/21 Treatment: Maintenance Interval Clinical Notes: pt feeling somewhat better no active si ECT Settings Device: THYMATRON DGx Electrode Placement: Bitemporal Program/Pulse Width: 0.50 Energy Percent: 100 Medications Administration General Anesthetic: Etomidate (16) Muscle Relaxant: Succinylcholine Ancillary Medications Analgesics: Torodol - Pre ECT Anti-emetics: Zofran - Pre ECT Miscillaneous Medications: Propofol Airway Management Airway Management: Bag Mask Ventilation Treatment Recommendations No Changes Recommended: No change Notes: f/u tx 2 weeks Pt Tolerated Procedure w/o Issue: Yes
--- NOTE | 2021-04-11 08:23 | PC.NURSE ---
GARCIA LINE FLUSHED PER ORDER AND GARCIA LINE DISCONTINUED. PT TOLERATED WTHOUT DIFFICULTY
== END 2021-04-11 09:30 | disposition home or self-care (01) ==
PROVIDERS: PCP Pediatrics; Visit Provider Psychiatry & Neurology Psychiatry
PROC: (CPT 90870; principal; 2021-04-11 07:00)
DX: F32.9 Major depressive disorder, single episode, unspecified (principal)
CPT/HCPCS: 90870; J0330; J1642; J1885; J2405

== ENCOUNTER 2021-04-18 22:38 | Emergency (ER) | payer OTHER, SELFPAY ==
[2021-04-18 22:55] VITALS: BP 135/83; PULSE 111; RESP 20; TEMP 37; O2SAT 97; BMI 53.5
[2021-04-18 23:14] LABS: COVID-19 Test Negative (Negative)
--- NOTE | 2021-04-18 23:18 | ED.URI ---
HPI - URI/Sore Throat General Chief Complaint: Upper Respiratory Symptoms Stated Complaint: nausea vomiting fever Time Seen by Provider: 04/18/21 22:43 Source: patient Mode of arrival: EMS Limitations: no limitations History of Present Illness HPI Narrative: Patient been feeling congested coughing low-grade fever vomiting after the cough history of asthma using inhaler mucoid phlegm Related Data Home Medications Medication Instructions Recorded Confirmed omeprazole 20 mg capsule,delayed 20 mg PO DAILY 11/29/20 03/30/21 release acetaminophen 500 mg tablet 650 mg PO Q6H PRN 12/10/20 04/02/21 albuterol sulfate 90 mcg/actuation 2 puff INHALATION Q6-8H PRN 12/10/20 04/02/21 aerosol inhaler (ProAir HFA) nicotine 21 mg/24 hr daily 1 patch TRANSDERMAL DAILY 12/10/20 03/30/21 transdermal patch cetirizine 10 mg tablet 10 mg PO DAILY 12/24/20 04/02/21 fluticasone propionate 110 2 puff INHALATION BID 12/24/20 03/30/21 mcg/actuation HFA aerosol inhaler (Flovent HFA) fluticasone propionate 50 1 spray INTRANASAL BID 12/24/20 03/30/21 mcg/actuation nasal spray,suspension albuterol sulfate 90 mcg/actuation 2 puff INHALATION Q4H PRN 03/30/21 04/02/21 aerosol inhaler (Ventolin HFA) benztropine 1 mg tablet 1 mg PO BID 03/30/21 04/02/21 buspirone 30 mg tablet 30 mg PO BID 03/30/21 04/02/21 clonidine HCl 0.1 mg tablet 0.1 mg PO BID 03/30/21 04/02/21 cyclobenzaprine 5 mg tablet 5 mg PO BEDTIME PRN 03/30/21 04/02/21 diphenhydramine HCl 50 mg capsule 50 mg PO BEDTIME PRN 03/30/21 03/30/21 docusate sodium 100 mg capsule 100 mg PO BID 03/30/21 03/30/21 (Colace) gabapentin 300 mg capsule 600 mg PO BID 03/30/21 04/02/21 haloperidol decanoate 100 mg/mL 100 mg IM Q OTHER DAY 03/30/21 03/30/21 intramuscular solution (Haldol Decanoate) lorazepam 1 mg tablet 1 mg PO QID PRN 03/30/21 03/30/21 prazosin 2 mg capsule 2 mg PO BEDTIME 03/30/21 03/30/21 quetiapine 100 mg tablet 600 mg PO BEDTIME 03/30/21 03/30/21 sulindac 200 mg tablet 200 mg PO BID 03/30/21 03/30/21 venlafaxine 150 mg 150 mg PO QAM 03/30/21 03/30/21 capsule,extended release 24 hr venlafaxine 75 mg tablet,extended 75 mg PO QAM 03/30/21 03/30/21 release 24 hr zolpidem 12.5 mg tablet,extended 1 tab PO BEDTIME 03/30/21 03/30/21 release,multiphase Previous Rx's Medication Instructions Recorded haloperidol 5 mg tablet 5 mg PO BID PRN 30 Days #60 tab 08/19/20 trazodone 50 mg tablet 50 mg PO BEDTIME PRN 30 Days #30 08/19/20 tab leg brace #1 ea 11/14/20 ondansetron 4 mg disintegrating 4 mg PO Q8H PRN #20 tab 02/04/21 tablet benzonatate 100 mg capsule 100 mg PO TID PRN #20 cap 04/18/21 ([place]) prednisone 20 mg tablet 40 mg PO DAILY #10 tab 04/18/21 Allergies Allergy/AdvReac Type Severity Reaction Status Date / Time carbamazepine [From TEGRETOL] AdvReac Unknown NAUSEA & Verified 04/04/21 08:00 VOMITING Review of Systems Review of Systems: Yes all other systems are reviewed and are negative PMFSH Past Medical History Medical History Acute post-traumatic stress disorder Adjustment disorder Anxiety Asthma Borderline personality disorder Chronic post-traumatic stress disorder (PTSD) COPD (chronic obstructive pulmonary disease) Depression GERD (gastroesophageal reflux disease) Increased BMI Injury, self-inflicted Intentional self-harm PTSD (post-traumatic stress disorder) Recurrent major depression-severe Schizoaffective disorder Self-harming behavior Suicidal ideation Suicidal ideation Social History Social History Household Members: None Household Members Other:: custodial Housing: House Do you presently have visiting nurse or other home services: Yes Alcohol intake: never Patient Tobacco Use Status: Current everyday Tobacco user Tobacco use type: Cigarette Cigarette Packs Per Day: 0.5 Cigarettes Per Day: 5 Years Smoked: 17 Second Hand Smoke Exposure: Yes Substance Use Type: Marijuana Advance Directives: No Advance Directives Information Provided: Yes Patient : No service: No Sexual orientation: did not discuss. Physical Exam Vital Signs: Vital Signs: Last Vital Signs Temp 98.6 F 04/18/21 22:55 Pulse 111 H 04/18/21 22:55 Resp 20 04/18/21 22:55 BP 135/83 04/18/21 22:55 Pulse Ox 97 04/18/21 22:55 Body Mass Index 53.5 Appearance: Alert. Oriented X3. No acute distress. Eyes: No pallor or icterus ENT: Pharynx normal. Oral Mucosa moist Neck: Normal inspection. Neck supple. CVS: Normal heart rate and rhythm. Pulses normal. Respiratory: No respiratory distress. Equal air entry bilateral, no wheezing/rales/rhonchi Abdomen: Soft and nontender. Bowel sounds are present, no mass palpable, no CVA tenderness Skin: Skin warm and dry. Normal skin color. Normal skin turgor. Extremities: No lower extremity edema. No calf tenderness Neuro: Oriented X 3. MDM - URI/Sore Throat MDM Narrative Medical decision making narrative: Patient with cough followed vomiting COVID-19 negative lungs are clear will discharge patient home on prednisone and Zofran Lab Data Attestation: I reviewed the patient's lab results. Labs: Lab Results 04/18/21 Range/Units 22:49 COVID-19 (RAFAL) Negative (Negative) COVID-19 Clin Com See Note Discharge Plan Discharge Clinical Impression: Asthmatic bronchitis Qualifiers: Asthma severity: mild Asthma persistence: intermittent Asthma complication type: uncomplicated Qualified Code(s): J45.20 - Mild intermittent asthma, uncomplicated Patient Disposition: Home, Self-Care Instructions: Asthma (ED) Additional Instructions: Continue taking inhaler as advised Prednisone as prescribed Drink plenty of fluids Take cough medicine as prescribed Prescriptions: New benzonatate [Tessalon Perles] 100 mg capsule 100 mg PO TID PRN (Reason: cough) Qty: 20 RF: 0 prednisone 20 mg tablet 40 mg PO DAILY Qty: 10 RF: 0 No Action omeprazole 20 mg capsule,delayed release(DR/EC) 20 mg PO DAILY RF: 0 ondansetron 4 mg tablet,disintegrating 4 mg PO Q8H PRN (Reason: nausea and vomiting) Qty: 20 RF: 0 trazodone 50 mg Tablet 50 mg PO BEDTIME PRN (Reason: Insomnia) 30 Days Qty: 30 RF: 0 haloperidol 5 mg Tablet 5 mg PO BID PRN (Reason: psychosis) 30 Days Qty: 60 RF: 0 albuterol sulfate [ProAir HFA] 90 mcg/actuation HFA aerosol inhaler 2 puff inhalation Q6-8H PRN (Reason: Wheezing) RF: 0 acetaminophen 500 mg Tablet 650 mg PO Q6H PRN (Reason: Pain) RF: 0 nicotine 21 mg/24 hr Patch 24 Hour 1 patch TRANSDERMAL DAILY RF: 0 cetirizine 10 mg Tablet 10 mg PO DAILY RF: 0 fluticasone propionate 50 mcg/actuation spray,suspension 1 spray intranasal BID RF: 0 Flovent HFA 110 mcg/actuation HFA aerosol inhaler 2 puff inhalation BID RF: 0 zolpidem 12.5 mg tablet,ext release multiphase 1 tab PO BEDTIME RF: 0 benztropine 1 mg Tablet 1 mg PO BID RF: 0 buspirone 30 mg Tablet 30 mg PO BID RF: 0 docusate sodium [Colace] 100 mg capsule 100 mg PO BID RF: 0 prazosin 2 mg Capsule 2 mg PO BEDTIME RF: 0 quetiapine 100 mg Tablet 600 mg PO BEDTIME RF: 0 sulindac 200 mg Tablet 200 mg PO BID RF: 0 haloperidol decanoate [Haldol Decanoate] 100 mg/mL solution 100 mg IM Q OTHER DAY RF: 0 gabapentin 300 mg capsule 600 mg PO BID RF: 0 clonidine HCl 0.1 mg tablet 0.1 mg PO BID RF: 0 venlafaxine 150 mg Capsule,Extended Release 24hr 150 mg PO QAM RF: 0 venlafaxine 75 mg Tablet Extended Release 24hr 75 mg PO QAM RF: 0 diphenhydramine HCl [Benadryl] 50 mg Capsule 50 mg PO BEDTIME PRN (Reason: Insomnia) RF: 0 lorazepam 1 mg tablet 1 mg PO QID PRN (Reason: Anxiety/Restlessness ) RF: 0 cyclobenzaprine 5 mg Tablet 5 mg PO BEDTIME PRN (Reason: Muscle Spasm) RF: 0 albuterol sulfate [Ventolin HFA] 90 mcg/actuation HFA aerosol inhaler 2 puff inhalation Q4H PRN (Reason: wheezing) RF: 0 (DME) leg brace Misc See Rx Instructions miscellaneous .MEDSUPPLY Qty: 1 RF: 0 Interventions: ED Discharge Assessment Last Done: 04/19/21 00:52 Discharge Date/Time: 04/19/21 00:53
--- NOTE | 2021-04-18 23:52 | PC.NURSE ---
d/c instructions to gordo over phone. no questions.
[2021-04-18] MEDS: Ondansetron ODT 4 MG TAB.RAPDIS TRANSLINGU (23:58)
[2021-04-18] MEDS: predniSONE 20 MG TABLET 40 MG PO (23:58)
== END 2021-04-19 00:53 | disposition home or self-care (01) ==
PROVIDERS: Emergency Provider Internal Medicine
DX: R50.9 Fever, unspecified (principal); R11.2 Nausea with vomiting, unspecified; F17.210 Nicotine dependence, cigarettes, uncomplicated; Z20.822 Contact with and (suspected) exposure to COVID-19; Z79.899 Other long term (current) drug therapy; Z71.6 Tobacco abuse counseling
CPT/HCPCS: 36415; 87635; 99283

== ENCOUNTER 2021-04-23 06:08 | Day surgery (SDC) | payer OTHER, SELFPAY ==
[2021-04-23] VITALS (8 sets, daily range): BP systolic 111–154; BP diastolic 63–93; PULSE 88–101; RESP 19–27; TEMP 36.3; O2SAT 91–98; BMI 53.5
[2021-04-23] MEDS: Lactated Ringers 1,000 ML 50 ML IVCONT (06:20)
--- NOTE | 2021-04-23 06:40 | P.CONAN_ITS ---
FORMERLY [facility] Active Problems Active Problems: All Active Problems (Updated 04/20/21 @ 00:02 by Adiel Brandt) Chronic post-traumatic stress disorder (PTSD) (Chronic) Sprain of anterior cruciate ligament of right knee (Acute) Self-inflicted injury (Acute) Lacerations of multiple sites of right arm (Acute) Injury of ligament of right knee (Acute) Increased BMI (Acute) GERD (gastroesophageal reflux disease) (Acute) Recurrent major depression-severe (Chronic) Borderline personality disorder (Chronic) Past Medical History Medical History Acute post-traumatic stress disorder Adjustment disorder Anxiety Asthma Borderline personality disorder Chronic post-traumatic stress disorder (PTSD) COPD (chronic obstructive pulmonary disease) Depression GERD (gastroesophageal reflux disease) Increased BMI Injury, self-inflicted Intentional self-harm PTSD (post-traumatic stress disorder) Recurrent major depression-severe Schizoaffective disorder Self-harming behavior Suicidal ideation Suicidal ideation Family History Family history of problems with anesthesia: No Surgical History History of Problems with Anesthesia: No Social History Social History Household Members: None Household Members Other:: alf Housing: House Do you presently have visiting nurse or other home services: Yes Alcohol intake: never Patient Tobacco Use Status: Current everyday Tobacco user Tobacco use type: Cigarette Cigarette Packs Per Day: 0.5 Cigarettes Per Day: 5 Years Smoked: 17 Second Hand Smoke Exposure: Yes Substance Use Type: Marijuana Advance Directives: No Advance Directives Information Provided: Yes service: No Sexual orientation: did not discuss. Meds Allergies Allergy/AdvReac Type Severity Reaction Status Date / Time carbamazepine [From TEGRETOL] AdvReac Unknown NAUSEA & Verified 04/04/21 08:00 VOMITING Home Medications Medication Instructions Recorded Confirmed Last Taken Type omeprazole 20 mg capsule,delayed 20 mg PO DAILY 11/29/20 03/30/21 12/24/20 08:00 History release acetaminophen 500 mg tablet 650 mg PO Q6H PRN 12/10/20 04/02/21 Unknown History albuterol sulfate 90 mcg/actuation 2 puff INHALATION Q6-8H PRN 12/10/20 04/02/21 Unknown History aerosol inhaler (ProAir HFA) nicotine 21 mg/24 hr daily 1 patch TRANSDERMAL DAILY 12/10/20 03/30/21 Unknown History transdermal patch cetirizine 10 mg tablet 10 mg PO DAILY 12/24/20 04/02/21 12/23/20 09:00 History fluticasone propionate 110 2 puff INHALATION BID 12/24/20 03/30/21 12/24/20 08:00 History mcg/actuation HFA aerosol inhaler (Flovent HFA) fluticasone propionate 50 1 spray INTRANASAL BID 12/24/20 03/30/21 12/24/20 09:00 History mcg/actuation nasal spray,suspension albuterol sulfate 90 mcg/actuation 2 puff INHALATION Q4H PRN 03/30/21 04/02/21 Unknown History aerosol inhaler (Ventolin HFA) benztropine 1 mg tablet 1 mg PO BID 03/30/21 04/02/21 03/30/21 07:00 History buspirone 30 mg tablet 30 mg PO BID 03/30/21 04/02/21 03/30/21 08:00 History clonidine HCl 0.1 mg tablet 0.1 mg PO BID 03/30/21 04/02/21 03/30/21 08:00 History cyclobenzaprine 5 mg tablet 5 mg PO BEDTIME PRN 03/30/21 04/02/21 Unknown History diphenhydramine HCl 50 mg capsule 50 mg PO BEDTIME PRN 03/30/21 03/30/21 Unknown History docusate sodium 100 mg capsule 100 mg PO BID 03/30/21 03/30/21 03/30/21 08:00 History (Colace) gabapentin 300 mg capsule 600 mg PO BID 03/30/21 04/02/21 03/30/21 08:00 History haloperidol decanoate 100 mg/mL 100 mg IM Q OTHER DAY 03/30/21 03/30/21 03/18/21 10:00 History intramuscular solution (Haldol Decanoate) lorazepam 1 mg tablet 1 mg PO QID PRN 03/30/21 03/30/21 Unknown History prazosin 2 mg capsule 2 mg PO BEDTIME 03/30/21 03/30/21 03/29/21 20:00 History quetiapine 100 mg tablet 600 mg PO BEDTIME 03/30/21 03/30/21 03/29/21 22:00 History sulindac 200 mg tablet 200 mg PO BID 03/30/21 03/30/21 03/30/21 08:00 History venlafaxine 150 mg 150 mg PO QAM 03/30/21 03/30/21 03/30/21 08:00 History capsule,extended release 24 hr venlafaxine 75 mg tablet,extended 75 mg PO QAM 03/30/21 03/30/21 03/30/21 08:00 History release 24 hr zolpidem 12.5 mg tablet,extended 1 tab PO BEDTIME 03/30/21 03/30/21 03/29/21 22:00 History release,multiphase Exam Exam Date and Time: April 23, 2021 0640 Airway Mallampati Class: III (Missing couple teeth, nothing loose) TM Dist: >3cm Neck ROM: Full Heart: rrr Lungs: cta Assessment and Plan Assessment Anesthesia Assessment: Anesthesia Plan Discussed and Chart Reviewed Final Anesthetic Review Family History of Problems with Anesthesia: No History of Problems with Anesthesia: No NPO: Yes ASA Class: III Final Preanesthetic Review: No Changes in Pt Med Stat, Meds/Allgs Chart Reviewed and Consent Obtained/Reviewed Patient Risk: Intermediate Procedure Risk: Intermediate Anesthetic Plan Anesthetic Plan: GA Disposition: Standard PACU
--- NOTE | 2021-04-23 07:11 | MHC.SHP ---
Pre-Procedural Eval Section A Date of Service: 04/23/21 The patient is an INPATIENT: No Changes since office visit: Yes Patient answered all questions; No Cold of Flu in the past 2 weeks, No New Medical Problems and No Changes in Medication The History & Physical has been completed within 30 days and I have reviewed it.: Yes Section B Chief Complaint: Severe Depression Allergies: Allergies Allergy/AdvReac Type Severity Reaction Status Date / Time carbamazepine [From TEGRETOL] AdvReac Unknown NAUSEA & Verified 04/04/21 08:00 VOMITING Plan I have reviewed the history and physical and performed a pertinent physical examination on my patient. No changes have occurred unless specified.
--- NOTE | 2021-04-23 07:31 | HO.ECTPROC ---
ECT Procedure Note Diagnosis/Treatment Date of Service: 04/23/21 Diagnosis: Major Depressive Disorder and Other (ptsd) Previous ECT Date: 04/11/21 Treatment: Maintenance Interval Clinical Notes: PT WITH SOME DYSPHORIC PERIODS LESS SELF HARM CONT TO FEEL ECT HELPFUL ECT Settings Device: THYMATRON DGx Electrode Placement: Bitemporal Program/Pulse Width: 0.50 Energy Percent: 100 Seizure Duration By EEG (in seconds): 33 Medications Administration General Anesthetic: Etomidate (12) Muscle Relaxant: Succinylcholine (100) Ancillary Medications Analgesics: Torodol - Pre ECT Anti-emetics: Zofran - Pre ECT Miscillaneous Medications: Propofol and Flumazenil Airway Management Airway Management: Bag Mask Ventilation Treatment Recommendations No Changes Recommended: No change Notes: F/U 2 WEEKS USE FLUMAZENILV HAS BHN PSYCHIATRIST Pt Tolerated Procedure w/o Issue: Yes
[2021-04-23] MEDS: Heparin Sodium,Porcine Flush 100 UNITS, 0.9 % Sodium Chloride Flush 5 ML IVFLUSH (08:51)
== END 2021-04-23 09:17 | disposition home or self-care (01) ==
PROVIDERS: PCP Pediatrics; Visit Provider Psychiatry & Neurology Psychiatry
PROC: (CPT 90870; principal; 2021-04-23 07:30)
DX: F33.3 Major depressive disorder, recurrent, severe with psychotic symptoms (principal)
CPT/HCPCS: 90870; J0330; J1642; J1885; J2405

== ENCOUNTER 2021-05-02 21:04 | Emergency (ER) | payer OTHER, SELFPAY ==
[2021-05-02 21:19] VITALS: BP 140/86; BP 140/92; PULSE 122; PULSE 92; RESP 20; TEMP 36.6; O2SAT 98; O2SAT 99; BMI 55.1
[2021-05-02 23:28] LABS: Basophils Percent Auto 0.1 % (0-2); Eosinophils Percent Auto 0.3 % (0-4); Hematocrit 32.6 % (37-47); Imm Gran Abs Auto 0.03 X10*3/uL (0.00-0.03); Imm Gran Pct Auto 0.3 % (0.0-0.4); Lymphocytes Percent Auto 26.5 % (20-40); MANUAL DIFF FLAG NO; Mean Corpuscular HGB Conc 30.7 g/dl (31.0-35.0); Mean Corpuscular Hemoglobin 24.4 pg (27.0-33.0); Mean Corpuscular Volume 79.7 fL (80-98); Mean Platelet Volume 10.3 fL (9.4-12.3); Monocytes Absolute Auto 0.6 X10*3/uL (0.1-1.2); Monocytes Percent Auto 5.1 % (2-11); Neutrophils Absolute Auto 7.7 X10*3/uL (2.0-8.3); Neutrophils Percent Auto 67.7 % (45-73); Platelet Count 348 X10*3/uL (160-400); Red Blood Count 4.09 X10*6/uL (4.20-5.50); Red Cell Distribution Width 17.7 % (11.0-16.0); White Blood Count 11.3 X10*3/uL (4.8-10.8)
[2021-05-02 23:55] LABS: Alanine Aminotransferase 16 U/L (0-31); Albumin Level 4.1 g/dL (3.5-5.0); Alkaline Phosphatase 80 U/L (39-117); Anion Gap 11 (12-20); Aspartate Amino Transferase 13 U/L (5-31); Bilirubin Total 0.4 mg/dL (0.0-1.0); Blood Urea Nitrogen 7 mg/dL (9-16); Calcium 9.1 mg/dL (8.4-10.2); Carbon Dioxide 22 mmol/L (22-29); Chloride 111 mmol/L (96-108); Creatinine Clr Calc Pharmacy 116.9; Estimated Glomerular Filt Rate > 60; Glucose Random 99 mg/dL (60-115); Potassium 3.8 mmol/L (3.3-5.1); Sodium 140 mmol/L (135-145); Total Protein 6.5 g/dL (6.5-8.0)
--- NOTE | 2021-05-03 00:08 | ED.GENADULT ---
HPI - General Adult General Chief complaint: General Medical Stated complaint: rectal bleeding Time Seen by Provider: 05/03/21 00:05 Source: patient Mode of arrival: ambulatory Limitations: no limitations History of Present Illness HPI narrative: Patient comes here for dark red blood in the stool for last 2 days stool brown color patient was seen by PCP 2 days ago started on liquid diet patient denies any history of hemorrhoids no abdominal pain no fever no chills Related Data Home Medications Medication Instructions Recorded Confirmed omeprazole 20 mg capsule,delayed 20 mg PO DAILY 11/29/20 03/30/21 release acetaminophen 500 mg tablet 650 mg PO Q6H PRN 12/10/20 04/02/21 albuterol sulfate 90 mcg/actuation 2 puff INHALATION Q6-8H PRN 12/10/20 04/02/21 aerosol inhaler (ProAir HFA) nicotine 21 mg/24 hr daily 1 patch TRANSDERMAL DAILY 12/10/20 03/30/21 transdermal patch cetirizine 10 mg tablet 10 mg PO DAILY 12/24/20 04/02/21 fluticasone propionate 110 2 puff INHALATION BID 12/24/20 03/30/21 mcg/actuation HFA aerosol inhaler (Flovent HFA) fluticasone propionate 50 1 spray INTRANASAL BID 12/24/20 03/30/21 mcg/actuation nasal spray,suspension albuterol sulfate 90 mcg/actuation 2 puff INHALATION Q4H PRN 03/30/21 04/02/21 aerosol inhaler (Ventolin HFA) benztropine 1 mg tablet 1 mg PO BID 03/30/21 04/02/21 buspirone 30 mg tablet 30 mg PO BID 03/30/21 04/02/21 clonidine HCl 0.1 mg tablet 0.1 mg PO BID 03/30/21 04/02/21 cyclobenzaprine 5 mg tablet 5 mg PO BEDTIME PRN 03/30/21 04/02/21 diphenhydramine HCl 50 mg capsule 50 mg PO BEDTIME PRN 03/30/21 03/30/21 docusate sodium 100 mg capsule 100 mg PO BID 03/30/21 03/30/21 (Colace) gabapentin 300 mg capsule 600 mg PO BID 03/30/21 04/02/21 haloperidol decanoate 100 mg/mL 100 mg IM Q OTHER DAY 03/30/21 03/30/21 intramuscular solution (Haldol Decanoate) lorazepam 1 mg tablet 1 mg PO QID PRN 03/30/21 03/30/21 prazosin 2 mg capsule 2 mg PO BEDTIME 03/30/21 03/30/21 quetiapine 100 mg tablet 600 mg PO BEDTIME 03/30/21 03/30/21 sulindac 200 mg tablet 200 mg PO BID 03/30/21 03/30/21 venlafaxine 150 mg 150 mg PO QAM 03/30/21 03/30/21 capsule,extended release 24 hr venlafaxine 75 mg tablet,extended 75 mg PO QAM 03/30/21 03/30/21 release 24 hr zolpidem 12.5 mg tablet,extended 1 tab PO BEDTIME 03/30/21 03/30/21 release,multiphase Previous Rx's Medication Instructions Recorded haloperidol 5 mg tablet 5 mg PO BID PRN 30 Days #60 tab 08/19/20 trazodone 50 mg tablet 50 mg PO BEDTIME PRN 30 Days #30 08/19/20 tab leg brace #1 ea 11/14/20 ondansetron 4 mg disintegrating 4 mg PO Q8H PRN #20 tab 02/04/21 tablet benzonatate 100 mg capsule 100 mg PO TID PRN #20 cap 04/18/21 ([place]) prednisone 20 mg tablet 40 mg PO DAILY #10 tab 04/18/21 hydrocortisone acetate 25 mg 25 mg ND BID #12 ea 05/03/21 rectal suppository (Anusol-HC) Allergies Allergy/AdvReac Type Severity Reaction Status Date / Time carbamazepine [From TEGRETOL] AdvReac Unknown NAUSEA & Verified 04/04/21 08:00 VOMITING Review of Systems Review of Systems: Yes all other systems are reviewed and are negative PMFSH Past Medical History Medical History Acute post-traumatic stress disorder Adjustment disorder Anxiety Asthma Borderline personality disorder Chronic post-traumatic stress disorder (PTSD) COPD (chronic obstructive pulmonary disease) Depression GERD (gastroesophageal reflux disease) Increased BMI Injury, self-inflicted Intentional self-harm PTSD (post-traumatic stress disorder) Recurrent major depression-severe Schizoaffective disorder Self-harming behavior Suicidal ideation Suicidal ideation Social History Social History Household Members: None Household Members Other:: alf Housing: House Do you presently have visiting nurse or other home services: Yes Alcohol intake: unknown Patient Tobacco Use Status: Current everyday Tobacco user Tobacco use type: Cigarette Cigarette Packs Per Day: 0.5 Cigarettes Per Day: 5 Years Smoked: 17 Second Hand Smoke Exposure: Yes Use of substances other than those prescribed or required for medical reasons: Unknown Substance Use Type: Marijuana Advance Directives: No Patient : No service: No Sexual orientation: did not discuss. Physical Exam Vital Signs: Vital Signs: Last Vital Signs Temp 97.8 F 05/02/21 21:19 Pulse 122 H 05/02/21 21:19 Resp 20 05/02/21 21:19 BP 140/92 H 05/02/21 21:19 Pulse Ox 99 05/02/21 21:19 Body Mass Index 55.1 Appearance: Alert. Oriented X3. No acute distress. Eyes: No pallor or icterus ENT: Pharynx normal. Oral Mucosa moist Neck: Normal inspection. Neck supple. CVS: Normal heart rate and rhythm. Pulses normal. Respiratory: No respiratory distress. Equal air entry bilateral, Abdomen: Soft and nontender. Bowel sounds are present, no mass palpable, no CVA tenderness Rectal: Brown stool guaiac negative Skin: Skin warm and dry. Normal skin color. Normal skin turgor. Extremities: No lower extremity edema. No calf tenderness Neuro: Oriented X 3. No motor deficit. Medical Decision Making MDM Narrative Medical decision making narrative: Patient with rectal bleed bright-red blood likely from hemorrhoids in the ER rectal exam was negative for any occult blood hemoglobin stable discharge patient home Lab Data Lab results reviewed: Yes I reviewed the patient's lab results. Result diagrams: 05/02/21 23:23 05/02/21 23:23 Labs: Lab Results 05/02/21 05/02/21 05/02/21 Range/Units 23:23 23:23 23:57 WBC 11.3 H (4.8-10.8) X10*3/uL RBC 4.09 L (4.20-5.50) X10*6/uL Hgb 10.0 L (12.0-16.0) g/dl Hct 32.6 L (37-47) % MCV 79.7 L (80-98) fL MCH 24.4 L (27.0-33.0) pg MCHC 30.7 L (31.0-35.0) g/dl RDW 17.7 H (11.0-16.0) % Plt Count 348 (160-400) X10*3/uL MPV 10.3 (9.4-12.3) fL Immature Gran % (Auto) 0.3 (0.0-0.4) % Neut % (Auto) 67.7 (45-73) % Lymph % (Auto) 26.5 (20-40) % Bibb % (Auto) 5.1 (2-11) % Eos % (Auto) 0.3 (0-4) % Baso % (Auto) 0.1 (0-2) % Lymph # (Auto) 3.0 (1.2-4.9) X10*3/uL Bibb # (Auto) 0.6 (0.1-1.2) X10*3/uL Eos # (Auto) 0.0 (0.0-0.4) X10*3/uL Baso # (Auto) 0.0 (0.0-0.2) X10*3/uL Abs Immat Gran (auto) 0.03 (0.00-0.03) X10*3/uL Absolute Neuts (auto) 7.7 (2.0-8.3) X10*3/uL Absolute Nucleated RBC 0.000 (0.0-0.012) X10*3/uL Nucleated RBC % (auto) 0.0 (0.0-0.2) /100WBC Sodium 140 (135-145) mmol/L Potassium 3.8 (3.3-5.1) mmol/L Chloride 111 H (96-108) mmol/L Carbon Dioxide 22 (22-29) mmol/L Anion Gap 11 L (12-20) BUN 7 L (9-16) mg/dL Creatinine 0.80 (0.5-1.4) mg/dL Estim Creat Clear Calc 116.9 Estimated GFR > 60 Random Glucose 99 (60-115) mg/dL Calcium 9.1 (8.4-10.2) mg/dL Total Bilirubin 0.4 (0.0-1.0) mg/dL AST 13 (5-31) U/L ALT 16 (0-31) U/L Alkaline Phosphatase 80 D (39-117) U/L Total Protein 6.5 (6.5-8.0) g/dL Albumin 4.1 (3.5-5.0) g/dL Urine Color YELLOW Urine Appearance HAZY Urine pH 7.0 (5.0-8.0) Ur Specific [place]ushing 1.015 (1.005-1.025) Urine Protein 1+ H (NEG-TRACE) MG/DL Urine Glucose (UA) NEG (NEG) MG/DL Urine Ketones NEG (NEG) MG/DL Urine Blood 3+ H (NEG) Urine Nitrite NEG (NEG) Ur Leukocyte Esterase NEG (NEG) Urine RBC 10-14 H (0) /HPF Urine WBC 0-2 (0-4) /HPF Ur Squamous Epith Cells 2+ /LPF Amorphous Sediment 1+ /LPF Urine Bacteria 2+ /LPF Urine Test (NEGATIVE) Stool Occult Blood (NEGATIVE) 05/02/21 05/03/21 Range/Units 23:57 00:10 WBC (4.8-10.8) X10*3/uL RBC (4.20-5.50) X10*6/uL Hgb (12.0-16.0) g/dl Hct (37-47) % MCV (80-98) fL MCH (27.0-33.0) pg MCHC (31.0-35.0) g/dl RDW (11.0-16.0) % Plt Count (160-400) X10*3/uL MPV (9.4-12.3) fL Immature Gran % (Auto) (0.0-0.4) % Neut % (Auto) (45-73) % Lymph % (Auto) (20-40) % Bibb % (Auto) (2-11) % Eos % (Auto) (0-4) % Baso % (Auto) (0-2) % Lymph # (Auto) (1.2-4.9) X10*3/uL Bibb # (Auto) (0.1-1.2) X10*3/uL Eos # (Auto) (0.0-0.4) X10*3/uL Baso # (Auto) (0.0-0.2) X10*3/uL Abs Immat Gran (auto) (0.00-0.03) X10*3/uL Absolute Neuts (auto) (2.0-8.3) X10*3/uL Absolute Nucleated RBC (0.0-0.012) X10*3/uL Nucleated RBC % (auto) (0.0-0.2) /100WBC Sodium (135-145) mmol/L Potassium (3.3-5.1) mmol/L Chloride (96-108) mmol/L Carbon Dioxide (22-29) mmol/L Anion Gap (12-20) BUN (9-16) mg/dL Creatinine (0.5-1.4) mg/dL Estim Creat Clear Calc Estimated GFR Random Glucose (60-115) mg/dL Calcium (8.4-10.2) mg/dL Total Bilirubin (0.0-1.0) mg/dL AST (5-31) U/L ALT (0-31) U/L Alkaline Phosphatase (39-117) U/L Total Protein (6.5-8.0) g/dL Albumin (3.5-5.0) g/dL Urine Color Urine Appearance Urine pH (5.0-8.0) Ur Specific Flushing (1.005-1.025) Urine Protein (NEG-TRACE) MG/DL Urine Glucose (UA) (NEG) MG/DL Urine Ketones (NEG) MG/DL Urine Blood (NEG) Urine Nitrite (NEG) Ur Leukocyte Esterase (NEG) Urine RBC (0) /HPF Urine WBC (0-4) /HPF Ur Squamous Epith Cells /LPF Amorphous Sediment /LPF Urine Bacteria /LPF Urine Test NEGATIVE (NEGATIVE) Stool Occult Blood NEGATIVE (NEGATIVE) Discharge Plan Discharge Clinical Impression: Hemorrhoid Qualifiers: Hemorrhoid type: second degree Qualified Code(s): K64.1 - Second degree hemorrhoids Patient Disposition: Home, Self-Care Instructions: Hemorrhoids (ED) Additional Instructions: Avoid straining/constipation Take Preparation-H/Anusol suppository twice daily till heals completely Prescriptions: New hydrocortisone acetate [Anusol-HC] 25 mg suppository 25 mg ND BID Qty: 12 RF: 0 No Action omeprazole 20 mg capsule,delayed release(DR/EC) 20 mg PO DAILY RF: 0 ondansetron 4 mg tablet,disintegrating 4 mg PO Q8H PRN (Reason: nausea and vomiting) Qty: 20 RF: 0 benzonatate [Tessalon Perles] 100 mg capsule 100 mg PO TID PRN (Reason: cough) Qty: 20 RF: 0 prednisone 20 mg tablet 40 mg PO DAILY Qty: 10 RF: 0 trazodone 50 mg Tablet 50 mg PO BEDTIME PRN (Reason: Insomnia) 30 Days Qty: 30 RF: 0 haloperidol 5 mg Tablet 5 mg PO BID PRN (Reason: psychosis) 30 Days Qty: 60 RF: 0 albuterol sulfate [ProAir HFA] 90 mcg/actuation HFA aerosol inhaler 2 puff inhalation Q6-8H PRN (Reason: Wheezing) RF: 0 acetaminophen 500 mg Tablet 650 mg PO Q6H PRN (Reason: Pain) RF: 0 nicotine 21 mg/24 hr Patch 24 Hour 1 patch TRANSDERMAL DAILY RF: 0 cetirizine 10 mg Tablet 10 mg PO DAILY RF: 0 fluticasone propionate 50 mcg/actuation spray,suspension 1 spray intranasal BID RF: 0 Flovent HFA 110 mcg/actuation HFA aerosol inhaler 2 puff inhalation BID RF: 0 zolpidem 12.5 mg tablet,ext release multiphase 1 tab PO BEDTIME RF: 0 benztropine 1 mg Tablet 1 mg PO BID RF: 0 buspirone 30 mg Tablet 30 mg PO BID RF: 0 docusate sodium [Colace] 100 mg capsule 100 mg PO BID RF: 0 prazosin 2 mg Capsule 2 mg PO BEDTIME RF: 0 quetiapine 100 mg Tablet 600 mg PO BEDTIME RF: 0 sulindac 200 mg Tablet 200 mg PO BID RF: 0 haloperidol decanoate [Haldol Decanoate] 100 mg/mL solution 100 mg IM Q OTHER DAY RF: 0 gabapentin 300 mg capsule 600 mg PO BID RF: 0 clonidine HCl 0.1 mg tablet 0.1 mg PO BID RF: 0 venlafaxine 150 mg Capsule,Extended Release 24hr 150 mg PO QAM RF: 0 venlafaxine 75 mg Tablet Extended Release 24hr 75 mg PO QAM RF: 0 diphenhydramine HCl [Benadryl] 50 mg Capsule 50 mg PO BEDTIME PRN (Reason: Insomnia) RF: 0 lorazepam 1 mg tablet 1 mg PO QID PRN (Reason: Anxiety/Restlessness ) RF: 0 cyclobenzaprine 5 mg Tablet 5 mg PO BEDTIME PRN (Reason: Muscle Spasm) RF: 0 albuterol sulfate [Ventolin HFA] 90 mcg/actuation HFA aerosol inhaler 2 puff inhalation Q4H PRN (Reason: wheezing) RF: 0 (DME) leg brace Misc See Rx Instructions miscellaneous .MEDSUPPLY Qty: 1 RF: 0 Interventions: ED Discharge Assessment Last Done: 05/03/21 00:32 Discharge Date/Time: 05/03/21 00:46
[2021-05-03 00:18] LABS: Appearance Urine HAZY; Color Urine YELLOW; Glucose Urine UA NEG (NEG); Leukocyte Esterase Urine NEG (NEG); Nitrite Urine NEG (NEG); Specific Gravity - Urine 1.015 (1.005-1.025); UACC Culture Trigger NO; Urine Blood 3+ (NEG); Urine Ketones NEG (NEG); Urine Protein 1+ MG/DL (NEG-TRACE)
[2021-05-03 00:18] LABS: OBS Int Ctl Valid YES; OBS1 NEGATIVE (NEGATIVE)
[2021-05-03 00:19] LABS: UPreg QC Valid YES; Urine Pregnancy NEGATIVE (NEGATIVE)
[2021-05-03 00:27] LABS: Squamous Epithelial Cell Urine 2+ /LPF; WBC Urine 0-2 /HPF (0-4)
[2021-05-03 00:28] LABS: Amorphous Sediment Urine 1+ /LPF; Bacteria Urine 2+ /LPF
== END 2021-05-03 00:46 | disposition home or self-care (01) ==
PROVIDERS: Emergency Provider Internal Medicine; PCP Pediatrics
DX: K64.1 Second degree hemorrhoids (principal); Z79.899 Other long term (current) drug therapy; F17.210 Nicotine dependence, cigarettes, uncomplicated; Z71.6 Tobacco abuse counseling
CPT/HCPCS: 36415; 80053; 81001; 81025; 82272; 85025; 99284

== ENCOUNTER 2021-05-07 06:37 | Day surgery (SDC) | payer OTHER, SELFPAY ==
[2021-05-07] VITALS (8 sets, daily range): BP systolic 116–142; BP diastolic 63–100; PULSE 79–101; RESP 16–26; TEMP 36.2–36.6; O2SAT 96–100; BMI 55.1
--- NOTE | 2021-05-07 06:57 | HO.ANESPROP2 ---
FORMERLY [facility] Active Problems Active Problems: All Active Problems (Updated 05/04/21 @ 00:01 by Adiel Sevilla) Chronic post-traumatic stress disorder (PTSD) (Chronic) Sprain of anterior cruciate ligament of right knee (Acute) Self-inflicted injury (Acute) Lacerations of multiple sites of right arm (Acute) Injury of ligament of right knee (Acute) Increased BMI (Acute) GERD (gastroesophageal reflux disease) (Acute) Recurrent major depression-severe (Chronic) Borderline personality disorder (Chronic) Past Medical History Medical History Acute post-traumatic stress disorder Adjustment disorder Anxiety Asthma Borderline personality disorder Chronic post-traumatic stress disorder (PTSD) COPD (chronic obstructive pulmonary disease) Depression GERD (gastroesophageal reflux disease) Increased BMI Injury, self-inflicted Intentional self-harm PTSD (post-traumatic stress disorder) Recurrent major depression-severe Schizoaffective disorder Self-harming behavior Suicidal ideation Suicidal ideation Family History Family history of problems with anesthesia: No Surgical History History of Problems with Anesthesia: No Social History Social History Household Members: None Household Members Other:: correction Housing: House Do you presently have visiting nurse or other home services: Yes Alcohol intake: unknown Patient Tobacco Use Status: Current everyday Tobacco user Tobacco use type: Cigarette Cigarette Packs Per Day: 0.5 Cigarettes Per Day: 5 Years Smoked: 17 Second Hand Smoke Exposure: Yes Substance Use Type: Marijuana Advance Directives: No Advance Directives Information Provided: Yes service: No Sexual orientation: did not discuss. Meds Allergies Allergy/AdvReac Type Severity Reaction Status Date / Time carbamazepine [From TEGRETOL] AdvReac Unknown NAUSEA & Verified 04/04/21 08:00 VOMITING Active Medications: Current Medications Lactated Ringer's (Lr) 1,000 mls @ 50 mls/hr IVCONT .Q20H [facility] Home Medications Medication Instructions Recorded Confirmed Last Taken Type omeprazole 20 mg capsule,delayed 20 mg PO DAILY 11/29/20 03/30/21 12/24/20 08:00 History release acetaminophen 500 mg tablet 650 mg PO Q6H PRN 12/10/20 04/02/21 Unknown History albuterol sulfate 90 mcg/actuation 2 puff INHALATION Q6-8H PRN 12/10/20 04/02/21 Unknown History aerosol inhaler (ProAir HFA) nicotine 21 mg/24 hr daily 1 patch TRANSDERMAL DAILY 12/10/20 03/30/21 Unknown History transdermal patch cetirizine 10 mg tablet 10 mg PO DAILY 12/24/20 04/02/21 12/23/20 09:00 History fluticasone propionate 110 2 puff INHALATION BID 12/24/20 03/30/21 12/24/20 08:00 History mcg/actuation HFA aerosol inhaler (Flovent HFA) fluticasone propionate 50 1 spray INTRANASAL BID 12/24/20 03/30/21 12/24/20 09:00 History mcg/actuation nasal spray,suspension albuterol sulfate 90 mcg/actuation 2 puff INHALATION Q4H PRN 03/30/21 04/02/21 Unknown History aerosol inhaler (Ventolin HFA) benztropine 1 mg tablet 1 mg PO BID 03/30/21 04/02/21 03/30/21 07:00 History buspirone 30 mg tablet 30 mg PO BID 03/30/21 04/02/21 03/30/21 08:00 History clonidine HCl 0.1 mg tablet 0.1 mg PO BID 03/30/21 04/02/21 03/30/21 08:00 History cyclobenzaprine 5 mg tablet 5 mg PO BEDTIME PRN 03/30/21 04/02/21 Unknown History diphenhydramine HCl 50 mg capsule 50 mg PO BEDTIME PRN 03/30/21 03/30/21 Unknown History docusate sodium 100 mg capsule 100 mg PO BID 03/30/21 03/30/21 03/30/21 08:00 History (Colace) gabapentin 300 mg capsule 600 mg PO BID 03/30/21 04/02/21 03/30/21 08:00 History haloperidol decanoate 100 mg/mL 100 mg IM Q OTHER DAY 03/30/21 03/30/21 03/18/21 10:00 History intramuscular solution (Haldol Decanoate) lorazepam 1 mg tablet 1 mg PO QID PRN 03/30/21 03/30/21 Unknown History prazosin 2 mg capsule 2 mg PO BEDTIME 03/30/21 03/30/21 03/29/21 20:00 History quetiapine 100 mg tablet 600 mg PO BEDTIME 03/30/21 03/30/21 03/29/21 22:00 History sulindac 200 mg tablet 200 mg PO BID 03/30/21 03/30/21 03/30/21 08:00 History venlafaxine 150 mg 150 mg PO QAM 03/30/21 03/30/21 03/30/21 08:00 History capsule,extended release 24 hr venlafaxine 75 mg tablet,extended 75 mg PO QAM 03/30/21 03/30/21 03/30/21 08:00 History release 24 hr zolpidem 12.5 mg tablet,extended 1 tab PO BEDTIME 03/30/21 03/30/21 03/29/21 22:00 History release,multiphase Exam Exam Date and Time: May 07, 2021 0657 Height,Weight and Vital Signs: Height 4 ft 11 in Weight 123.831 kg Last Vital Signs Temp 97.2 F 05/07/21 06:40 Pulse 101 H 05/07/21 06:40 Resp 18 05/07/21 06:40 BP 116/63 05/07/21 06:40 Pulse Ox 98 05/07/21 06:40 Airway Mallampati Class: III TM Dist: >3cm Neck ROM: Full Heart: rrr Lungs: cta Assessment and Plan Assessment Anesthesia Assessment: Anesthesia Plan Discussed and Chart Reviewed Final Anesthetic Review Family History of Problems with Anesthesia: No History of Problems with Anesthesia: No NPO: Yes ASA Class: III Final Preanesthetic Review: No Changes in Pt Med Stat, Meds/Allgs Chart Reviewed and Consent Obtained/Reviewed Patient Risk: Intermediate Procedure Risk: Intermediate Anesthetic Plan Anesthetic Plan: GA Disposition: Standard PACU
--- NOTE | 2021-05-07 07:25 | MHC.SHP ---
Pre-Procedural Eval Section A Date of Service: 05/07/21 Section B Chief Complaint: depression Details of Present Illness: hx recurrent depression ptsd Relevant Social History: Tobacco Use Present Medications: see Short Stay Collaborative assessment Medical History: Significant History (asthma) Allergies: Allergies Allergy/AdvReac Type Severity Reaction Status Date / Time carbamazepine [From TEGRETOL] AdvReac Unknown NAUSEA & Verified 04/04/21 08:00 VOMITING Review of Systems Sugical H&P ROS: Yes, Specify: Respiratory (uses inhaler) Exam Surgical H&P Exam: Normal: Heart and Normal: Lungs Plan Diagnosis/Plan: Unchanged I have reviewed the history and physical and performed a pertinent physical examination on my patient. No changes have occurred unless specified.
[2021-05-07 07:26] LABS: UPreg QC Valid YES; Urine Pregnancy NEGATIVE (NEGATIVE)
--- NOTE | 2021-05-07 07:43 | HO.ECTPROC ---
ECT Procedure Note Diagnosis/Treatment Date of Service: 05/07/21 Previous ECT Date: 04/23/21 Treatment: Maintenance Interval Clinical Notes: states in general more stable no active si ECT Settings Device: THYMATRON DGx Electrode Placement: Bitemporal Program/Pulse Width: 0.50 Energy Percent: 100 Seizure Duration By EEG (in seconds): 23 Medications Administration General Anesthetic: Etomidate (12) Muscle Relaxant: Succinylcholine (100) Ancillary Medications Analgesics: Torodol - Pre ECT Anti-emetics: Zofran - Pre ECT Miscillaneous Medications: Propofol and Flumazenil Airway Management Airway Management: Bag Mask Ventilation Treatment Recommendations No Changes Recommended: No change Notes: give flumazenil early Pt Tolerated Procedure w/o Issue: Yes
== END 2021-05-07 09:08 | disposition home or self-care (01) ==
PROVIDERS: PCP Pediatrics; Visit Provider Psychiatry & Neurology Psychiatry
PROC: (CPT 90870; principal; 2021-05-07 07:00)
DX: F33.9 Major depressive disorder, recurrent, unspecified (principal); F43.10 Post-traumatic stress disorder, unspecified
CPT/HCPCS: 36415; 70450; 80307; 81003; 81025; 87635; 90870; 99283; 99285; J0330; J1642; J1885; J2405

== ENCOUNTER 2021-05-07 16:21 | Emergency (ER) | payer OTHER, SELFPAY ==
--- NOTE | ~2021-05-07 | CT_ITS ---
EXAMINATION: CT HEAD WITHOUT CONTRAST CLINICAL INFORMATION: Head injury. COMPARISON: None TECHNIQUE: Contiguous axial imaging was performed from the skull base to vertex without intravenous administration of contrast. This CT examination was performed using dose optimization techniques as appropriate, variously including the following: *Automated exposure control *Adjustment of mA and/or kV according to patient size (this includes techniques or standardized protocols for targeted exams where dose is matched to indication/reason for exam; i.e. extremities or head) *Use of iterative reconstruction technique DLP: 683 mGy-cm FINDINGS: There is no evidence of acute intracranial hemorrhage or territorial infarction. No abnormal mass effect or midline shift is seen. Diaz to white matter differentiation is well preserved. No extra-axial fluid collections are identified. The ventricles are normal in size. There is no abnormal attenuation within the brain parenchyma. There is midline frontal scalp contusion with hematoma. No calvarial fracture visualized. CT/CT head/brain wo con IMPRESSION: Midline frontal scalp soft tissue hematoma. No calvarial fracture seen. There is no acute intracranial process seen.
[2021-05-07 16:44] VITALS: BP 132/75; PULSE 92; RESP 16; TEMP 36.6; O2SAT 98; BMI 55.1
--- NOTE | 2021-05-07 17:50 | ED_ITS ---
HPI - Head Injury General Chief complaint: Psychiatric Symptoms Stated complaint: Crisis Time Seen by Provider: 05/07/21 17:43 Source: patient Mode of arrival: ambulatory Limitations: no limitations History of Present Illness HPI Narrative: 36-year-old female from a correction history of head being presents emergency department after being her head against the wall. Patient states she was going to overdose on Benadryl. Patient denies cough fever chest pain nausea vomiting diarrhea. MD Complaint: head injury Related Data Home Medications Medication Instructions Recorded Confirmed omeprazole 20 mg capsule,delayed 20 mg PO DAILY 11/29/20 03/30/21 release acetaminophen 500 mg tablet 650 mg PO Q6H PRN 12/10/20 04/02/21 albuterol sulfate 90 mcg/actuation 2 puff INHALATION Q6-8H PRN 12/10/20 04/02/21 aerosol inhaler (ProAir HFA) nicotine 21 mg/24 hr daily 1 patch TRANSDERMAL DAILY 12/10/20 03/30/21 transdermal patch cetirizine 10 mg tablet 10 mg PO DAILY 12/24/20 04/02/21 fluticasone propionate 110 2 puff INHALATION BID 12/24/20 03/30/21 mcg/actuation HFA aerosol inhaler (Flovent HFA) fluticasone propionate 50 1 spray INTRANASAL BID 12/24/20 03/30/21 mcg/actuation nasal spray,suspension albuterol sulfate 90 mcg/actuation 2 puff INHALATION Q4H PRN 03/30/21 04/02/21 aerosol inhaler (Ventolin HFA) benztropine 1 mg tablet 1 mg PO BID 03/30/21 04/02/21 buspirone 30 mg tablet 30 mg PO BID 03/30/21 04/02/21 clonidine HCl 0.1 mg tablet 0.1 mg PO BID 03/30/21 04/02/21 cyclobenzaprine 5 mg tablet 5 mg PO BEDTIME PRN 03/30/21 04/02/21 diphenhydramine HCl 50 mg capsule 50 mg PO BEDTIME PRN 03/30/21 03/30/21 docusate sodium 100 mg capsule 100 mg PO BID 03/30/21 03/30/21 (Colace) gabapentin 300 mg capsule 600 mg PO BID 03/30/21 04/02/21 haloperidol decanoate 100 mg/mL 100 mg IM Q OTHER DAY 03/30/21 03/30/21 intramuscular solution (Haldol Decanoate) lorazepam 1 mg tablet 1 mg PO QID PRN 03/30/21 03/30/21 prazosin 2 mg capsule 2 mg PO BEDTIME 03/30/21 03/30/21 quetiapine 100 mg tablet 600 mg PO BEDTIME 03/30/21 03/30/21 sulindac 200 mg tablet 200 mg PO BID 03/30/21 03/30/21 venlafaxine 150 mg 150 mg PO QAM 03/30/21 03/30/21 capsule,extended release 24 hr venlafaxine 75 mg tablet,extended 75 mg PO QAM 03/30/21 03/30/21 release 24 hr zolpidem 12.5 mg tablet,extended 1 tab PO BEDTIME 03/30/21 03/30/21 release,multiphase Previous Rx's Medication Instructions Recorded haloperidol 5 mg tablet 5 mg PO BID PRN 30 Days #60 tab 08/19/20 trazodone 50 mg tablet 50 mg PO BEDTIME PRN 30 Days #30 08/19/20 tab leg brace #1 ea 11/14/20 ondansetron 4 mg disintegrating 4 mg PO Q8H PRN #20 tab 02/04/21 tablet benzonatate 100 mg capsule 100 mg PO TID PRN #20 cap 04/18/21 (Melanie Browne) prednisone 20 mg tablet 40 mg PO DAILY #10 tab 04/18/21 hydrocortisone acetate 25 mg 25 mg RI BID #12 ea 05/03/21 rectal suppository (Anusol-HC) Allergies Allergy/AdvReac Type Severity Reaction Status Date / Time carbamazepine [From TEGRETOL] AdvReac Unknown NAUSEA & Verified 04/04/21 08:00 VOMITING Review of Systems Review of Systems: Review of systems: General: Patient denies any fever chills recent illness or falls Musculoskeletal: Denies back pain or body aches or other injuries HEENT: headache, denies runny nose, ear pain Respiratory: denies shortness of breath, cough Cardiovascular: no chest pain or palpitations : denies dysuria, frequency Abdomen: no nausea vomiting denies abdominal pain Extremities: no swelling, no pain Skin: no diaphoresis Yes all other systems are reviewed and are negative PMFSH Past Medical History Medical History Acute post-traumatic stress disorder Adjustment disorder Anxiety Asthma Borderline personality disorder Chronic post-traumatic stress disorder (PTSD) COPD (chronic obstructive pulmonary disease) Depression GERD (gastroesophageal reflux disease) Increased BMI Injury, self-inflicted Intentional self-harm PTSD (post-traumatic stress disorder) Recurrent major depression-severe Schizoaffective disorder Self-harming behavior Suicidal ideation Suicidal ideation Social History Social History Household Members: None Household Members Other:: correction Housing: House Do you presently have visiting nurse or other home services: Yes Alcohol intake: unknown Patient Tobacco Use Status: Current everyday Tobacco user Tobacco use type: Cigarette Cigarette Packs Per Day: 0.5 Cigarettes Per Day: 5 Years Smoked: 17 Second Hand Smoke Exposure: Yes Substance Use Type: Marijuana Advance Directives: No Advance Directives Information Provided: Yes service: No Sexual orientation: did not discuss. Physical Exam Vital Signs: Vital Signs: Last Vital Signs Temp 98 F 05/07/21 16:44 Pulse 92 05/07/21 16:44 Resp 16 05/07/21 16:44 BP 132/75 05/07/21 16:44 Pulse Ox 98 05/07/21 16:44 Body Mass Index 55.1 General: Well-appearing well-nourished in no signs of distress HEENT: Normocephalic atraumatic no hematotympanum patient does have some trauma to her forehead with likely bony growth with small abrasion to that area. 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 Extremities: Normal pedal pulses no signs of edema Skin: Dry warm no rashes Back: No tenderness full ROM MDM - Head Injury MDM Narrative Medical decision making narrative: Patient likely to have head bleed I will give patient for CT scan to make sure there is no acute intracranial injury the patient watched for crisis evaluation. 1940 CT is negative patient states she does not want to see crisis and is happy to return to the correction Lab Data Labs: Lab Results 05/07/21 05/07/21 05/07/21 Range/Units 19:01 19:01 19:01 Urine Color STRAW Urine Appearance CLEAR Urine pH 6.5 (5.0-8.0) Ur Specific [place] <= 1.005 (1.005-1.025) Urine Protein NEG (NEG-TRACE) MG/DL Urine Glucose (UA) NEG (NEG) MG/DL Urine Ketones NEG (NEG) MG/DL Urine Blood NEG (NEG) Urine Nitrite NEG (NEG) Ur Leukocyte Esterase NEG (NEG) Urine Test NEGATIVE (NEGATIVE) Urine Opiates Screen Not Detected (Not Detect) Urine Fentanyl Screen Not Detected (Not Detect) Ur Barbiturates Screen Not Detected (Not Detect) Ur Phencyclidine Scrn Not Detected (Not Detect) Ur Amphetamines Screen Not Detected (Not Detect) U Benzodiazepines Scrn Not Detected (Not Detect) Urine Cocaine Screen Not Detected (Not Detect) U Marijuana (THC) Screen POSITIVE H (Not Detect) COVID-19 (RAFAL) (Negative) COVID-[facility] 05/07/21 Range/Units 19:02 Urine Color Urine Appearance Urine pH (5.0-8.0) Ur Specific [place] (1.005-1.025) Urine Protein (NEG-TRACE) MG/DL Urine Glucose (UA) (NEG) MG/DL Urine Ketones (NEG) MG/DL Urine Blood (NEG) Urine Nitrite (NEG) Ur Leukocyte Esterase (NEG) Urine Test (NEGATIVE) Urine Opiates Screen (Not Detect) Urine Fentanyl Screen (Not Detect) Ur Barbiturates Screen (Not Detect) Ur Phencyclidine Scrn (Not Detect) Ur Amphetamines Screen (Not Detect) U Benzodiazepines Scrn (Not Detect) Urine Cocaine Screen (Not Detect) U Marijuana (THC) Screen (Not Detect) COVID-19 (RAFAL) Negative (Negative) COVID-[facility] See Note Discharge Plan Discharge Clinical Impression: Concussion, Acute psychosis, Chronic schizophrenia, Self-inflicted injury Patient Disposition: Home, Self-Care Instructions: Schizophrenia (ED), Concussion (ED), Psychotic Disorder (ED) Prescriptions: No Action omeprazole 20 mg capsule,delayed release(DR/EC) 20 mg PO DAILY RF: 0 ondansetron 4 mg tablet,disintegrating 4 mg PO Q8H PRN (Reason: nausea and vomiting) Qty: 20 RF: 0 benzonatate [Tessalon Perles] 100 mg capsule 100 mg PO TID PRN (Reason: cough) Qty: 20 RF: 0 prednisone 20 mg tablet 40 mg PO DAILY Qty: 10 RF: 0 trazodone 50 mg Tablet 50 mg PO BEDTIME PRN (Reason: Insomnia) 30 Days Qty: 30 RF: 0 haloperidol 5 mg Tablet 5 mg PO BID PRN (Reason: psychosis) 30 Days Qty: 60 RF: 0 albuterol sulfate [ProAir HFA] 90 mcg/actuation HFA aerosol inhaler 2 puff inhalation Q6-8H PRN (Reason: Wheezing) RF: 0 acetaminophen 500 mg Tablet 650 mg PO Q6H PRN (Reason: Pain) RF: 0 nicotine 21 mg/24 hr Patch 24 Hour 1 patch TRANSDERMAL DAILY RF: 0 cetirizine 10 mg Tablet 10 mg PO DAILY RF: 0 fluticasone propionate 50 mcg/actuation spray,suspension 1 spray intranasal BID RF: 0 Flovent HFA 110 mcg/actuation HFA aerosol inhaler 2 puff inhalation BID RF: 0 zolpidem 12.5 mg tablet,ext release multiphase 1 tab PO BEDTIME RF: 0 benztropine 1 mg Tablet 1 mg PO BID RF: 0 buspirone 30 mg Tablet 30 mg PO BID RF: 0 docusate sodium [Colace] 100 mg capsule 100 mg PO BID RF: 0 prazosin 2 mg Capsule 2 mg PO BEDTIME RF: 0 quetiapine 100 mg Tablet 600 mg PO BEDTIME RF: 0 sulindac 200 mg Tablet 200 mg PO BID RF: 0 haloperidol decanoate [Haldol Decanoate] 100 mg/mL solution 100 mg IM Q OTHER DAY RF: 0 gabapentin 300 mg capsule 600 mg PO BID RF: 0 clonidine HCl 0.1 mg tablet 0.1 mg PO BID RF: 0 venlafaxine 150 mg Capsule,Extended Release 24hr 150 mg PO QAM RF: 0 venlafaxine 75 mg Tablet Extended Release 24hr 75 mg PO QAM RF: 0 diphenhydramine HCl [Benadryl] 50 mg Capsule 50 mg PO BEDTIME PRN (Reason: Insomnia) RF: 0 lorazepam 1 mg tablet 1 mg PO QID PRN (Reason: Anxiety/Restlessness ) RF: 0 cyclobenzaprine 5 mg Tablet 5 mg PO BEDTIME PRN (Reason: Muscle Spasm) RF: 0 albuterol sulfate [Ventolin HFA] 90 mcg/actuation HFA aerosol inhaler 2 puff inhalation Q4H PRN (Reason: wheezing) RF: 0 hydrocortisone acetate [Anusol-HC] 25 mg suppository 25 mg RI BID Qty: 12 RF: 0 (DME) leg brace Misc See Rx Instructions miscellaneous .MEDSUPPLY Qty: 1 RF: 0
[2021-05-07 19:12] LABS: Appearance Urine CLEAR; Color Urine STRAW; Glucose Urine UA NEG (NEG); Leukocyte Esterase Urine NEG (NEG); Nitrite Urine NEG (NEG); PH 6.5 (5.0-8.0); Specific Gravity - Urine <= 1.005 (1.005-1.025); Urine Blood NEG (NEG); Urine Ketones NEG (NEG); Urine Protein NEG (NEG-TRACE)
[2021-05-07 19:14] LABS: UPreg QC Valid YES; Urine Pregnancy NEGATIVE (NEGATIVE)
[2021-05-07 19:30] LABS: Amphetamine Screen Urine Not Detected (Not Detect); Barbiturates, Urine Not Detected (Not Detect); Benzodiazepines Screen Urine Not Detected (Not Detect); Cannabinoid Screen Urine POSITIVE (Not Detect); Cocaine Screen Urine Not Detected (Not Detect); Opiate Screen Urine Not Detected (Not Detect); Phencyclidine Screen Urine Not Detected (Not Detect)
[2021-05-07 19:30] LABS: COVID-19 Test Negative (Negative); IDNOW Serial# 9DD0AD1C
[2021-05-07 19:32] LABS: Fentanyl, urine Not Detected (Not Detect)
== END 2021-05-07 20:08 | disposition home or self-care (01) ==
PROVIDERS: Emergency Provider Student in an Organized Health Care Education/Training Program; PCP Pediatrics
DX: S06.0X0A Concussion without loss of consciousness, initial encounter (principal); F23 Brief psychotic disorder; G44.309 Post-traumatic headache, unspecified, not intractable; X83.8XXA Intentional self-harm by other specified means, initial encounter; Y93.9 Activity, unspecified; Y92.89 Other specified places as the place of occurrence of the external cause; Y99.9 Unspecified external cause status; Z79.899 Other long term (current) drug therapy; F17.210 Nicotine dependence, cigarettes, uncomplicated; Z71.6 Tobacco abuse counseling; Z20.822 Contact with and (suspected) exposure to COVID-19
CPT/HCPCS: 36415; 70450; 80307; 81003; 81025; 87635; 99283; 99285

== ENCOUNTER 2021-05-16 14:15 | Emergency (ER) | payer OTHER, SELFPAY ==
--- NOTE | ~2021-05-16 | XR_ITS ---
EXAMINATION: XR CHEST CLINICAL INFORMATION: Cough COMPARISON: Chest radiographs 11/29/2020, 09/09/2020 TECHNIQUE: Portable upright AP view of the chest was obtained. FINDINGS: There is a left tunneled port with tip at mid superior vena cava similar to prior exam. The heart is normal in size. The vascularity is normal. There is no lobar or segmental airspace consolidation or groundglass opacity or effusion. The costophrenic sulci are clear. XR/XR chest 1V IMPRESSION: Unremarkable examination.
[2021-05-16 14:18] VITALS: BP 131/91; PULSE 100; RESP 18; TEMP 37; O2SAT 98; BMI 52.4
--- NOTE | 2021-05-16 14:28 | ED.URI ---
HPI - URI/Sore Throat General Chief Complaint: Upper Respiratory Symptoms Stated Complaint: flu like symptoms Time Seen by Provider: 05/16/21 14:26 Source: patient Mode of arrival: ambulatory Limitations: no limitations History of Present Illness MD elicited complaint: cough, rhinorrhea and other (ear pain, diarrhea, feels unwell) Pertinent past history: asthma Onset (ago): day(s) (5) Consistency: constant Severity: moderate Description of mucous: clear Able to tolerate fluids by mouth: Yes Exacerbating factors: nothing Relieving factors: nothing Context: sick contacts (friend is sick as well) Associated symptoms: chills, headache, rhinorrhea, sore throat, cough and ear pain Treatments prior to arrival: none Related Data Home Medications Medication Instructions Recorded Confirmed omeprazole 20 mg capsule,delayed 20 mg PO DAILY 11/29/20 03/30/21 release acetaminophen 500 mg tablet 650 mg PO Q6H PRN 12/10/20 04/02/21 albuterol sulfate 90 mcg/actuation 2 puff INHALATION Q6-8H PRN 12/10/20 04/02/21 aerosol inhaler (ProAir HFA) nicotine 21 mg/24 hr daily 1 patch TRANSDERMAL DAILY 12/10/20 03/30/21 transdermal patch cetirizine 10 mg tablet 10 mg PO DAILY 12/24/20 04/02/21 fluticasone propionate 110 2 puff INHALATION BID 12/24/20 03/30/21 mcg/actuation HFA aerosol inhaler (Flovent HFA) fluticasone propionate 50 1 spray INTRANASAL BID 12/24/20 03/30/21 mcg/actuation nasal spray,suspension albuterol sulfate 90 mcg/actuation 2 puff INHALATION Q4H PRN 03/30/21 04/02/21 aerosol inhaler (Ventolin HFA) benztropine 1 mg tablet 1 mg PO BID 03/30/21 04/02/21 buspirone 30 mg tablet 30 mg PO BID 03/30/21 04/02/21 clonidine HCl 0.1 mg tablet 0.1 mg PO BID 03/30/21 04/02/21 cyclobenzaprine 5 mg tablet 5 mg PO BEDTIME PRN 03/30/21 04/02/21 diphenhydramine HCl 50 mg capsule 50 mg PO BEDTIME PRN 03/30/21 03/30/21 docusate sodium 100 mg capsule 100 mg PO BID 03/30/21 03/30/21 (Colace) gabapentin 300 mg capsule 600 mg PO BID 03/30/21 04/02/21 haloperidol decanoate 100 mg/mL 100 mg IM Q OTHER DAY 03/30/21 03/30/21 intramuscular solution (Haldol Decanoate) lorazepam 1 mg tablet 1 mg PO QID PRN 03/30/21 03/30/21 prazosin 2 mg capsule 2 mg PO BEDTIME 03/30/21 03/30/21 quetiapine 100 mg tablet 600 mg PO BEDTIME 03/30/21 03/30/21 sulindac 200 mg tablet 200 mg PO BID 03/30/21 03/30/21 venlafaxine 150 mg 150 mg PO QAM 03/30/21 03/30/21 capsule,extended release 24 hr venlafaxine 75 mg tablet,extended 75 mg PO QAM 03/30/21 03/30/21 release 24 hr zolpidem 12.5 mg tablet,extended 1 tab PO BEDTIME 03/30/21 03/30/21 release,multiphase Previous Rx's Medication Instructions Recorded haloperidol 5 mg tablet 5 mg PO BID PRN 30 Days #60 tab 08/19/20 trazodone 50 mg tablet 50 mg PO BEDTIME PRN 30 Days #30 08/19/20 tab leg brace #1 ea 11/14/20 ondansetron 4 mg disintegrating 4 mg PO Q8H PRN #20 tab 02/04/21 tablet benzonatate 100 mg capsule 100 mg PO TID PRN #20 cap 04/18/21 (Melanie Browne) prednisone 20 mg tablet 40 mg PO DAILY #10 tab 04/18/21 hydrocortisone acetate 25 mg 25 mg [place] BID #12 ea 05/03/21 rectal suppository (Anusol-HC) amoxicillin 875 mg-potassium 1 tab PO BID #14 tab 05/16/21 clavulanate 125 mg tablet (Augmentin) prednisone 20 mg tablet 20 mg PO DAILY 4 Days #4 tab 05/16/21 Allergies Allergy/AdvReac Type Severity Reaction Status Date / Time carbamazepine [From TEGRETOL] AdvReac Unknown NAUSEA & Verified 04/04/21 08:00 VOMITING Review of Systems Review of Systems: Constitutional : positive Fever, positive Chills, positive fatigue, positive Malaise ENT/Mouth : positive sore throat, positive runny nose Eyes: No Discharge Cardiovascular : No Chest Pain, No SOB Respiratory : pos Cough, No Sputum Gastrointestinal : No Nausea, No Vomiting, No Diarrhea Genitourinary : No Dysuria, No Urinary Frequency Musculoskeletal : positive Myalgia Skin : No rash Neuro : pos Headache PMFSH Past Medical History Attestation statement: The following information was validated with the patient. Medical History Acute post-traumatic stress disorder Adjustment disorder Anxiety Asthma Borderline personality disorder Chronic post-traumatic stress disorder (PTSD) COPD (chronic obstructive pulmonary disease) Depression GERD (gastroesophageal reflux disease) Increased BMI Injury, self-inflicted Intentional self-harm PTSD (post-traumatic stress disorder) Recurrent major depression-severe Schizoaffective disorder Self-harming behavior Suicidal ideation Suicidal ideation Social History Social History Household Members: None Household Members Other:: penitentiary Housing: House Do you presently have visiting nurse or other home services: Yes Alcohol intake: unknown Patient Tobacco Use Status: Current everyday Tobacco user Tobacco use type: Cigarette Cigarette Packs Per Day: 0.5 Cigarettes Per Day: 5 Years Smoked: 17 Second Hand Smoke Exposure: Yes Substance Use Type: Marijuana Advance Directives: No Advance Directives Information Provided: No service: No Sexual orientation: did not discuss. Physical Exam Vital Signs: Vital Signs: Last Vital Signs Temp 98.6 F 05/16/21 14:18 Pulse 102 H 05/16/21 15:08 Resp 18 05/16/21 14:18 BP 131/91 H 05/16/21 14:18 Pulse Ox 98 05/16/21 14:18 Body Mass Index 52.4 Appearance: Alert. Oriented X3. No acute distress. Eyes: Pupils equal, round and reactive to light. ENT: Pharynx mild erythema no exudates, R TM dull bulging erythematous Neck: Normal inspection. Neck supple. CVS: Normal heart rate and rhythm. Pulses normal. Respiratory: No respiratory distress. Breath sounds rhonchi noted Abdomen: Soft and non-tender. Skin: Skin warm and dry. Normal skin color. Normal skin turgor. Extremities: No lower extremity edema. No calf ttp Neuro: Oriented X 3. No motor deficit. No sensory deficit. Course Course Course Narrative: stable for DC will treat as otitis media and bronchitis MDM - URI/Sore Throat MDM Narrative Medical decision making narrative: 36 yo female with hx of mental health issues, bronchitis, GERD comes in with viral like illness x 5 days - at this time will need CXR, COVID swab, symptom control - her R ear has AOM - augmentin ordered. Dispo per results and findings, given hx of bronchitis low dose prednisone ordered as well - given INH in hand Lab Data Labs: Lab Results 05/16/21 05/16/21 05/16/21 Range/Units 14:33 15:09 15:09 Urine Color YELLOW Urine Appearance HAZY Urine pH 6.0 (5.0-8.0) Ur Specific [place] 1.010 (1.005-1.025) Urine Protein NEG (NEG-TRACE) MG/DL Urine Glucose (UA) NEG (NEG) MG/DL Urine Ketones NEG (NEG) MG/DL Urine Blood NEG (NEG) Urine Nitrite NEG (NEG) Ur Leukocyte Esterase NEG (NEG) Urine Test NEGATIVE (NEGATIVE) COVID-19 (RAFAL) Negative (Negative) COVID-19 Clin Com See Note Discharge Plan Discharge Clinical Impression: Bronchitis Otitis media Qualifiers: Otitis media type: suppurative Chronicity: acute Laterality: right Recurrence: non-recurrent Spontaneous tympanic membrane rupture: without spontaneous rupture Qualified Code(s): H66.001 - Acute suppurative otitis media without spontaneous rupture of ear drum, right ear Patient Disposition: Home, Self-Care Instructions: Ear Infection (ED), Acute Bronchitis (ED) Additional Instructions: return to ED for any worsening symptoms or concerns NEGATIVE FOR COVID Prescriptions: New prednisone 20 mg tablet 20 mg PO DAILY 4 Days Qty: 4 RF: 0 amoxicillin-pot clavulanate [Augmentin] 875-125 mg tablet 1 tab PO BID Qty: 14 RF: 0 No Action omeprazole 20 mg capsule,delayed release(DR/EC) 20 mg PO DAILY RF: 0 ondansetron 4 mg tablet,disintegrating 4 mg PO Q8H PRN (Reason: nausea and vomiting) Qty: 20 RF: 0 benzonatate [Tessalon Perles] 100 mg capsule 100 mg PO TID PRN (Reason: cough) Qty: 20 RF: 0 prednisone 20 mg tablet 40 mg PO DAILY Qty: 10 RF: 0 trazodone 50 mg Tablet 50 mg PO BEDTIME PRN (Reason: Insomnia) 30 Days Qty: 30 RF: 0 haloperidol 5 mg Tablet 5 mg PO BID PRN (Reason: psychosis) 30 Days Qty: 60 RF: 0 albuterol sulfate [ProAir HFA] 90 mcg/actuation HFA aerosol inhaler 2 puff inhalation Q6-8H PRN (Reason: Wheezing) RF: 0 acetaminophen 500 mg Tablet 650 mg PO Q6H PRN (Reason: Pain) RF: 0 nicotine 21 mg/24 hr Patch 24 Hour 1 patch TRANSDERMAL DAILY RF: 0 cetirizine 10 mg Tablet 10 mg PO DAILY RF: 0 fluticasone propionate 50 mcg/actuation spray,suspension 1 spray intranasal BID RF: 0 Flovent HFA 110 mcg/actuation HFA aerosol inhaler 2 puff inhalation BID RF: 0 zolpidem 12.5 mg tablet,ext release multiphase 1 tab PO BEDTIME RF: 0 benztropine 1 mg Tablet 1 mg PO BID RF: 0 buspirone 30 mg Tablet 30 mg PO BID RF: 0 docusate sodium [Colace] 100 mg capsule 100 mg PO BID RF: 0 prazosin 2 mg Capsule 2 mg PO BEDTIME RF: 0 quetiapine 100 mg Tablet 600 mg PO BEDTIME RF: 0 sulindac 200 mg Tablet 200 mg PO BID RF: 0 haloperidol decanoate [Haldol Decanoate] 100 mg/mL solution 100 mg IM Q OTHER DAY RF: 0 gabapentin 300 mg capsule 600 mg PO BID RF: 0 clonidine HCl 0.1 mg tablet 0.1 mg PO BID RF: 0 venlafaxine 150 mg Capsule,Extended Release 24hr 150 mg PO QAM RF: 0 venlafaxine 75 mg Tablet Extended Release 24hr 75 mg PO QAM RF: 0 diphenhydramine HCl [Benadryl] 50 mg Capsule 50 mg PO BEDTIME PRN (Reason: Insomnia) RF: 0 lorazepam 1 mg tablet 1 mg PO QID PRN (Reason: Anxiety/Restlessness ) RF: 0 cyclobenzaprine 5 mg Tablet 5 mg PO BEDTIME PRN (Reason: Muscle Spasm) RF: 0 albuterol sulfate [Ventolin HFA] 90 mcg/actuation HFA aerosol inhaler 2 puff inhalation Q4H PRN (Reason: wheezing) RF: 0 hydrocortisone acetate [Anusol-HC] 25 mg suppository 25 mg [place] BID Qty: 12 RF: 0 (DME) leg brace Misc See Rx Instructions miscellaneous .MEDSUPPLY Qty: 1 RF: 0 Referrals: Carroll Gaviria MD [Primary Care Provider] - 3 days (if not better) Stand Alone Forms: Work/School Release
[2021-05-16 14:55] LABS: COVID-19 Test Negative (Negative)
[2021-05-16] MEDS: predniSONE 20 MG TABLET PO (15:07)
[2021-05-16] MEDS: Butalb/Acetamin/Caff 50/325/40 TABLET 1 TAB PO (15:07)
[2021-05-16] MEDS: Amoxicillin/Potassium Clav 875 MG TABLET PO (15:07)
[2021-05-16 15:08] VITALS: PULSE 102; O2SAT 98
[2021-05-16] MEDS: Albuterol Sulfate 90 MCG 8 GM INHALER 4 PUFF INHALE (15:08)
[2021-05-16 15:17] LABS: Appearance Urine HAZY; Color Urine YELLOW; Glucose Urine UA NEG (NEG); Leukocyte Esterase Urine NEG (NEG); Nitrite Urine NEG (NEG); Urine Blood NEG (NEG); Urine Ketones NEG (NEG); Urine Protein NEG (NEG-TRACE)
[2021-05-16 15:19] LABS: UPreg QC Valid YES; Urine Pregnancy NEGATIVE (NEGATIVE)
== END 2021-05-16 15:41 | disposition home or self-care (01) ==
PROVIDERS: Emergency Provider Emergency Medicine; PCP Pediatrics
DX: J20.9 Acute bronchitis, unspecified (principal); H66.001 Acute suppurative otitis media without spontaneous rupture of ear drum, right ear; R51.9 Headache, unspecified; J34.89 Other specified disorders of nose and nasal sinuses; R50.9 Fever, unspecified; H92.03 Otalgia, bilateral; Z20.822 Contact with and (suspected) exposure to COVID-19; F17.210 Nicotine dependence, cigarettes, uncomplicated; Z71.6 Tobacco abuse counseling; Z79.899 Other long term (current) drug therapy
CPT/HCPCS: 36415; 71045; 81003; 81025; 87635; 94640; 99284

== ENCOUNTER 2021-05-21 05:56 | Day surgery (SDC) | payer OTHER, SELFPAY ==
[2021-05-21] VITALS (7 sets, daily range): BP systolic 118–134; BP diastolic 74–82; PULSE 83–95; RESP 14–20; TEMP 36.2–37.3; O2SAT 93–99; BMI 52.4
--- NOTE | 2021-05-21 06:56 | P.CONAN_ITS ---
[facility] Active Problems Active Problems: All Active Problems (Updated 05/17/21 @ 00:03 by Adiel Brandt) Chronic post-traumatic stress disorder (PTSD) (Chronic) Sprain of anterior cruciate ligament of right knee (Acute) Self-inflicted injury (Acute) Lacerations of multiple sites of right arm (Acute) Injury of ligament of right knee (Acute) Increased BMI (Acute) GERD (gastroesophageal reflux disease) (Acute) Recurrent major depression-severe (Chronic) Borderline personality disorder (Chronic) Past Medical History Medical History Acute post-traumatic stress disorder Adjustment disorder Anxiety Asthma Borderline personality disorder Chronic post-traumatic stress disorder (PTSD) COPD (chronic obstructive pulmonary disease) Depression GERD (gastroesophageal reflux disease) Increased BMI Injury, self-inflicted Intentional self-harm PTSD (post-traumatic stress disorder) Recurrent major depression-severe Schizoaffective disorder Self-harming behavior Suicidal ideation Suicidal ideation Family History Family history of problems with anesthesia: No Surgical History History of Problems with Anesthesia: No Social History Social History Household Members: None Household Members Other:: [facility] Housing: House Do you presently have visiting nurse or other home services: Yes Alcohol intake: unknown Patient Tobacco Use Status: Current everyday Tobacco user Tobacco use type: Cigarette Cigarette Packs Per Day: 0.5 Cigarettes Per Day: 5 Years Smoked: 17 Second Hand Smoke Exposure: Yes Substance Use Type: Marijuana Advance Directives: No Advance Directives Information Provided: Yes service: No Sexual orientation: did not discuss. Meds Allergies Allergy/AdvReac Type Severity Reaction Status Date / Time carbamazepine [From TEGRETOL] AdvReac Unknown NAUSEA & Verified 04/04/21 08:00 VOMITING Active Medications: Current Medications Albuterol Sulfate (Albuterol Sulfate (0.083%) 2.5 Mg/3 Ml Vial.Neb) 2.5 mg INHALE ONCE PRN PRN Reason: Shortness of Breath/Wheezing Lactated Ringer's (Lr) 1,000 mls @ 50 mls/hr IVCONT .Q20H FOR[facility] Home Medications Medication Instructions Recorded Confirmed Last Taken Type omeprazole 20 mg capsule,delayed 20 mg PO DAILY 11/29/20 03/30/21 12/24/20 08:00 History release acetaminophen 500 mg tablet 650 mg PO Q6H PRN 12/10/20 04/02/21 Unknown History albuterol sulfate 90 mcg/actuation 2 puff INHALATION Q6-8H PRN 12/10/20 04/02/21 Unknown History aerosol inhaler (ProAir HFA) nicotine 21 mg/24 hr daily 1 patch TRANSDERMAL DAILY 12/10/20 03/30/21 Unknown History transdermal patch cetirizine 10 mg tablet 10 mg PO DAILY 12/24/20 04/02/21 12/23/20 09:00 History fluticasone propionate 110 2 puff INHALATION BID 12/24/20 03/30/21 12/24/20 08:00 History mcg/actuation HFA aerosol inhaler (Flovent HFA) fluticasone propionate 50 1 spray INTRANASAL BID 12/24/20 03/30/21 12/24/20 09:00 History mcg/actuation nasal spray,suspension albuterol sulfate 90 mcg/actuation 2 puff INHALATION Q4H PRN 03/30/21 04/02/21 Unknown History aerosol inhaler (Ventolin HFA) benztropine 1 mg tablet 1 mg PO BID 03/30/21 04/02/21 03/30/21 07:00 History buspirone 30 mg tablet 30 mg PO BID 03/30/21 04/02/21 03/30/21 08:00 History clonidine HCl 0.1 mg tablet 0.1 mg PO BID 03/30/21 04/02/21 03/30/21 08:00 History cyclobenzaprine 5 mg tablet 5 mg PO BEDTIME PRN 03/30/21 04/02/21 Unknown History diphenhydramine HCl 50 mg capsule 50 mg PO BEDTIME PRN 03/30/21 03/30/21 Unknown History docusate sodium 100 mg capsule 100 mg PO BID 03/30/21 03/30/21 03/30/21 08:00 History (Colace) gabapentin 300 mg capsule 600 mg PO BID 03/30/21 04/02/21 03/30/21 08:00 History haloperidol decanoate 100 mg/mL 100 mg IM Q OTHER DAY 03/30/21 03/30/21 03/18/21 10:00 History intramuscular solution (Haldol Decanoate) lorazepam 1 mg tablet 1 mg PO QID PRN 03/30/21 03/30/21 Unknown History prazosin 2 mg capsule 2 mg PO BEDTIME 03/30/21 03/30/21 03/29/21 20:00 History quetiapine 100 mg tablet 600 mg PO BEDTIME 03/30/21 03/30/21 03/29/21 22:00 History sulindac 200 mg tablet 200 mg PO BID 03/30/21 03/30/21 03/30/21 08:00 History venlafaxine 150 mg 150 mg PO QAM 03/30/21 03/30/21 03/30/21 08:00 History capsule,extended release 24 hr venlafaxine 75 mg tablet,extended 75 mg PO QAM 03/30/21 03/30/21 03/30/21 08:00 History release 24 hr zolpidem 12.5 mg tablet,extended 1 tab PO BEDTIME 03/30/21 03/30/21 03/29/21 22:00 History release,multiphase Exam Exam Date and Time: May 21, 2021 0656 Height,Weight and Vital Signs: Height 4 ft 11 in Weight 117.934 kg Airway Mallampati Class: II TM Dist: >3cm Neck ROM: Full Heart: rrr Lungs: wheezing, updraft ordered Assessment and Plan Assessment Anesthesia Assessment: Anesthesia Plan Discussed and Chart Reviewed Final Anesthetic Review Family History of Problems with Anesthesia: No History of Problems with Anesthesia: No NPO: Yes ASA Class: III Final Preanesthetic Review: No Changes in Pt Med Stat, Meds/Allgs Chart Reviewed and Consent Obtained/Reviewed Patient Risk: Intermediate Procedure Risk: Intermediate Anesthetic Plan Anesthetic Plan: GA Disposition: Standard PACU
--- NOTE | 2021-05-21 07:00 | MHC.SHP ---
Pre-Procedural Eval Section A Date of Service: 05/21/21 The patient is an INPATIENT: No Changes since office visit: No Cold of Flu in the past 2 weeks, No New Medical Problems, No Changes in Medication and No Patient answered all questions The History & Physical has been completed within 30 days and I have reviewed it.: Yes Section B Chief Complaint: Severe Depression Allergies: Allergies Allergy/AdvReac Type Severity Reaction Status Date / Time carbamazepine [From TEGRETOL] AdvReac Unknown NAUSEA & Verified 04/04/21 08:00 VOMITING Plan I have reviewed the history and physical and performed a pertinent physical examination on my patient. No changes have occurred unless specified.
[2021-05-21] MEDS: Albuterol Sulfate (0.083%) 2.5 MG/3 ML VIAL.NEB INHALE (07:03)
--- NOTE | 2021-05-21 07:10 | HO.ECTPROC ---
ECT Procedure Note Diagnosis/Treatment Date of Service: 05/21/21 Diagnosis: Bipolar disorder Previous ECT Date: 06/06/20 Treatment: Maintenance Interval Clinical Notes: The patient reported euthymia, no new symptoms, no side effects with previous treatment. ECT Settings Device: THYMATRON DGx Electrode Placement: Bitemporal Program/Pulse Width: 0.50 Energy Percent: 100 Seizure Duration By Motor Observation (in seconds): 14 Medications Administration General Anesthetic: Etomidate (16) Muscle Relaxant: Succinylcholine (100) Ancillary Medications Analgesics: Torodol - Pre ECT Anti-emetics: Zofran - Pre ECT Miscillaneous Medications: Propofol (30) and Other (No flumazenil since her last Ativan was over 48 hours) Airway Management Airway Management: Bag Mask Ventilation Treatment Recommendations No Changes Recommended: No change Pt Tolerated Procedure w/o Issue: Yes
== END 2021-05-21 08:57 | disposition home or self-care (01) ==
PROVIDERS: PCP Pediatrics; Visit Provider Psychiatry & Neurology Psychiatry
PROC: (CPT 90870; principal; 2021-05-21 08:00)
DX: F31.5 Bipolar disorder, current episode depressed, severe, with psychotic features (principal); F43.10 Post-traumatic stress disorder, unspecified; F60.3 Borderline personality disorder; J45.909 Unspecified asthma, uncomplicated; F17.210 Nicotine dependence, cigarettes, uncomplicated; Z79.899 Other long term (current) drug therapy
CPT/HCPCS: 90870; 94640; J0330; J1642; J1885; J2405

== ENCOUNTER 2021-06-01 19:28 | Emergency (ER) | payer OTHER, SELFPAY ==
--- NOTE | ~2021-06-01 | XR_ITS ---
EXAMINATION: XR CHEST CLINICAL INFORMATION: Cough COMPARISON: 05/16/2021 TECHNIQUE: Frontal view of the chest was obtained. FINDINGS: Again seen is a left chest wall jugular port with tip in the SVC. No significant abnormality is noted involving the heart, lungs, mediastinum, bony thorax or soft tissues. XR/XR chest 1V IMPRESSION: No acute intrathoracic disease.
--- NOTE | 2021-06-01 20:01 | ED_ITS ---
HPI - URI/Sore Throat General Chief Complaint: Upper Respiratory Symptoms Stated Complaint: FLU LIKE SYMPTOMS Source: patient Mode of arrival: ambulatory Limitations: no limitations History of Present Illness HPI Narrative: 36-year-old female presents with upper respiratory symptoms for 4-5 days. As headache, productive cough with clear sputum, shortness of breath, sore throat, abdominal pain, and fatigue. Patient states that she has chest pain when she coughs. MD elicited complaint: cough, sore throat and nasal congestion Onset (ago): day(s) (5) Consistency: constant Severity: mild Description of mucous: clear and watery Able to tolerate fluids by mouth: Yes Exacerbating factors: deep breaths Relieving factors: nothing Context: sick contacts Associated symptoms: myalgias, headache, rhinorrhea, nasal congestion, sore throat, cough and abdominal pain Treatments prior to arrival: none Related Data Home Medications Medication Instructions Recorded Confirmed omeprazole 20 mg capsule,delayed 20 mg PO DAILY 11/29/20 03/30/21 release acetaminophen 500 mg tablet 650 mg PO Q6H PRN 12/10/20 04/02/21 albuterol sulfate 90 mcg/actuation 2 puff INHALATION Q6-8H PRN 12/10/20 04/02/21 aerosol inhaler (ProAir HFA) nicotine 21 mg/24 hr daily 1 patch TRANSDERMAL DAILY 12/10/20 03/30/21 transdermal patch cetirizine 10 mg tablet 10 mg PO DAILY 12/24/20 04/02/21 fluticasone propionate 110 2 puff INHALATION BID 12/24/20 03/30/21 mcg/actuation HFA aerosol inhaler (Flovent HFA) fluticasone propionate 50 1 spray INTRANASAL BID 12/24/20 03/30/21 mcg/actuation nasal spray,suspension albuterol sulfate 90 mcg/actuation 2 puff INHALATION Q4H PRN 03/30/21 04/02/21 aerosol inhaler (Ventolin HFA) benztropine 1 mg tablet 1 mg PO BID 03/30/21 04/02/21 buspirone 30 mg tablet 30 mg PO BID 03/30/21 04/02/21 clonidine HCl 0.1 mg tablet 0.1 mg PO BID 03/30/21 04/02/21 cyclobenzaprine 5 mg tablet 5 mg PO BEDTIME PRN 03/30/21 04/02/21 diphenhydramine HCl 50 mg capsule 50 mg PO BEDTIME PRN 03/30/21 03/30/21 docusate sodium 100 mg capsule 100 mg PO BID 03/30/21 03/30/21 (Colace) gabapentin 300 mg capsule 600 mg PO BID 03/30/21 04/02/21 haloperidol decanoate 100 mg/mL 100 mg IM Q OTHER DAY 03/30/21 03/30/21 intramuscular solution (Haldol Decanoate) lorazepam 1 mg tablet 1 mg PO QID PRN 03/30/21 03/30/21 prazosin 2 mg capsule 2 mg PO BEDTIME 03/30/21 03/30/21 quetiapine 100 mg tablet 600 mg PO BEDTIME 03/30/21 03/30/21 sulindac 200 mg tablet 200 mg PO BID 03/30/21 03/30/21 venlafaxine 150 mg 150 mg PO QAM 03/30/21 03/30/21 capsule,extended release 24 hr venlafaxine 75 mg tablet,extended 75 mg PO QAM 03/30/21 03/30/21 release 24 hr zolpidem 12.5 mg tablet,extended 1 tab PO BEDTIME 03/30/21 03/30/21 release,multiphase Previous Rx's Medication Instructions Recorded haloperidol 5 mg tablet 5 mg PO BID PRN 30 Days #60 tab 08/19/20 trazodone 50 mg tablet 50 mg PO BEDTIME PRN 30 Days #30 08/19/20 tab leg brace #1 ea 11/14/20 ondansetron 4 mg disintegrating 4 mg PO Q8H PRN #20 tab 02/04/21 tablet benzonatate 100 mg capsule 100 mg PO TID PRN #20 cap 04/18/21 (Tessalon Hollie) prednisone 20 mg tablet 40 mg PO DAILY #10 tab 04/18/21 hydrocortisone acetate 25 mg 25 mg KS BID #12 ea 05/03/21 rectal suppository (Anusol-HC) amoxicillin 875 mg-potassium 1 tab PO BID #14 tab 05/16/21 clavulanate 125 mg tablet (Augmentin) prednisone 20 mg tablet 20 mg PO DAILY 4 Days #4 tab 05/16/21 Allergies Allergy/AdvReac Type Severity Reaction Status Date / Time carbamazepine [From TEGRETOL] AdvReac Unknown NAUSEA & Verified 06/01/21 20:14 VOMITING Review of Systems Review of Systems: Constitutional: No Fever, No Chills ENT/Mouth: No Ear Pain, No Hoarseness, positive sore throat Eyes: No Eye Pain, No Swelling, No Redness, No Foreign Body Cardiovascular: Positive Chest Pain, No SOB Respiratory: Positive Cough, No Dyspnea Gastrointestinal: Positive Nausea, No Vomiting, No Diarrhea, positive abdominal Pain Genitourinary: No Dysuria, No Hematuria Musculoskeletal: positive muscle pain, No Myalgias, No Joint Swelling Skin: No Skin lacerations, No rash Neuro: No Weakness, No Numbness, No Paresthesias, No Loss of Consciousness, No Dizziness, No Headache Psych: No Anxiety/Panic, No Depression Heme/Lymph: no easy bruising, no Lymphadenopathy Endocrine: No Polyuria, No Polydipsia Yes all other systems are reviewed and are negative [facility] Past Medical History Attestation statement: The following information was validated with the patient. Source: old records reviewed Medical History Acute post-traumatic stress disorder Adjustment disorder Anxiety Asthma Borderline personality disorder Chronic post-traumatic stress disorder (PTSD) COPD (chronic obstructive pulmonary disease) Depression GERD (gastroesophageal reflux disease) Increased BMI Injury, self-inflicted Intentional self-harm PTSD (post-traumatic stress disorder) Recurrent major depression-severe Schizoaffective disorder Self-harming behavior Suicidal ideation Suicidal ideation Social History Social History Household Members: None Household Members Other:: senior living Housing: House Do you presently have visiting nurse or other home services: Yes Alcohol intake: unknown Patient Tobacco Use Status: Current everyday Tobacco user Tobacco use type: Cigarette Cigarette Packs Per Day: 0.5 Cigarettes Per Day: 5 Years Smoked: 17 Second Hand Smoke Exposure: Yes Substance Use Type: Marijuana Advance Directives: No Advance Directives Information Provided: No Patient : No service: No Sexual orientation: did not discuss. Physical Exam Vital Signs: Vital Signs: Last Vital Signs Temp 98.3 F 06/01/21 20:07 Pulse 89 06/01/21 20:07 Resp 18 06/01/21 20:07 BP 128/64 06/01/21 20:07 Pulse Ox 97 06/01/21 20:07 Body Mass Index 53.5 Appearance: Alert. Oriented X3. Mild distress. Eyes: Pupils equal, round and reactive to light. Sclera nonicteric. ENT: Pharynx normal. Tympanic membranes normal. Moist mucous membranes. Neck: Normal inspection. Neck supple. No nuchal rigidity. No vertebral t enderness. CVS: Normal heart rate and rhythm. Pulses normal. Respiratory: No respiratory distress. Lung sounds clear to auscultation all lobes. Abdomen: Soft and nontender. Normoactive bowel sounds all 4 quadrants. Skin: Skin warm and dry. Normal skin color. Normal skin turgor. Extremities: No lower extremity edema. Moves all extremities against resistance. Gait well balanced well coordinated. Neuro: No motor deficit. No sensory deficit. Cranial nerves 2-12 intact Course Course Course Narrative: 36-year-old female presents with upper respiratory symptoms. Has concerns about pneumonia, states that she was treated for an upper respiratory infection a couple months ago with antibiotics. She appears tired but well, does not report any suicidal or homicidal ideations at this time. Patient is afebrile, appears nontoxic, vital signs stable and within normal limits. Will order COVID test and chest x-ray. 9:04 p.m. COVID test is negative. Chest x-ray is pending. 9:36 p.m. x-rays are negative. Discussed case with patient, patient agrees to plan of care discharge home. MDM - URI/Sore Throat Differential Diagnosis Differential diagnosis: Likely upper respiratory infection, sinusitis, viral infection, bronchitis, influenza and pharyngitis Medical Records Attestation: I reviewed the patient's medical records. Lab Data Attestation: I reviewed the patient's lab results. Labs: Lab Results 06/01/21 Range/Units 20:00 COVID-19 (RAFAL) Negative (Negative) COVID-19 Clin Com See Note Imaging Data Chest x-ray: Attestation: I personally reviewed and interpreted this imaging study as follows: Radiologist's impression: EXAMINATION: XR CHEST CLINICAL INFORMATION: Cough COMPARISON: 05/16/2021 TECHNIQUE: Frontal view of the chest was obtained. FINDINGS: Again seen is a left chest wall jugular port with tip in the SVC. No significant abnormality is noted involving the heart, lungs, mediastinum, bony thorax or soft tissues. XR/XR chest 1V IMPRESSION: No acute intrathoracic disease. Discharge Plan Discharge Clinical Impression: Viral infection Upper respiratory infection Qualifiers: URI type: unspecified URI Qualified Code(s): J06.9 - Acute upper respiratory infection, unspecified Patient Disposition: Home, Self-Care Instructions: Upper Respiratory Infection (ED), Viral Syndrome (ED) Additional Instructions: You were evaluated for upper respiratory symptoms. Your COVID-19 test is negative. Your chest x-ray is normal. Please follow-up with primary care physician as needed. Thank you for choosing this emergency department for evaluation. Please follow-up with primary care physician as needed. Return to the emergency department for any new, concerning, or worsening symptoms. Prescriptions: No Action omeprazole 20 mg capsule,delayed release(DR/EC) 20 mg PO DAILY RF: 0 ondansetron 4 mg tablet,disintegrating 4 mg PO Q8H PRN (Reason: nausea and vomiting) Qty: 20 RF: 0 benzonatate [Tessalon Perles] 100 mg capsule 100 mg PO TID PRN (Reason: cough) Qty: 20 RF: 0 prednisone 20 mg tablet 40 mg PO DAILY Qty: 10 RF: 0 trazodone 50 mg Tablet 50 mg PO BEDTIME PRN (Reason: Insomnia) 30 Days Qty: 30 RF: 0 haloperidol 5 mg Tablet 5 mg PO BID PRN (Reason: psychosis) 30 Days Qty: 60 RF: 0 albuterol sulfate [ProAir HFA] 90 mcg/actuation HFA aerosol inhaler 2 puff inhalation Q6-8H PRN (Reason: Wheezing) RF: 0 acetaminophen 500 mg Tablet 650 mg PO Q6H PRN (Reason: Pain) RF: 0 nicotine 21 mg/24 hr Patch 24 Hour 1 patch TRANSDERMAL DAILY RF: 0 cetirizine 10 mg Tablet 10 mg PO DAILY RF: 0 fluticasone propionate 50 mcg/actuation spray,suspension 1 spray intranasal BID RF: 0 Flovent HFA 110 mcg/actuation HFA aerosol inhaler 2 puff inhalation BID RF: 0 zolpidem 12.5 mg tablet,ext release multiphase 1 tab PO BEDTIME RF: 0 benztropine 1 mg Tablet 1 mg PO BID RF: 0 buspirone 30 mg Tablet 30 mg PO BID RF: 0 docusate sodium [Colace] 100 mg capsule 100 mg PO BID RF: 0 prazosin 2 mg Capsule 2 mg PO BEDTIME RF: 0 quetiapine 100 mg Tablet 600 mg PO BEDTIME RF: 0 sulindac 200 mg Tablet 200 mg PO BID RF: 0 haloperidol decanoate [Haldol Decanoate] 100 mg/mL solution 100 mg IM Q OTHER DAY RF: 0 gabapentin 300 mg capsule 600 mg PO BID RF: 0 clonidine HCl 0.1 mg tablet 0.1 mg PO BID RF: 0 venlafaxine 150 mg Capsule,Extended Release 24hr 150 mg PO QAM RF: 0 venlafaxine 75 mg Tablet Extended Release 24hr 75 mg PO QAM RF: 0 diphenhydramine HCl [Benadryl] 50 mg Capsule 50 mg PO BEDTIME PRN (Reason: Insomnia) RF: 0 lorazepam 1 mg tablet 1 mg PO QID PRN (Reason: Anxiety/Restlessness ) RF: 0 cyclobenzaprine 5 mg Tablet 5 mg PO BEDTIME PRN (Reason: Muscle Spasm) RF: 0 albuterol sulfate [Ventolin HFA] 90 mcg/actuation HFA aerosol inhaler 2 puff inhalation Q4H PRN (Reason: wheezing) RF: 0 hydrocortisone acetate [Anusol-HC] 25 mg suppository 25 mg KS BID Qty: 12 RF: 0 prednisone 20 mg tablet 20 mg PO DAILY 4 Days Qty: 4 RF: 0 amoxicillin-pot clavulanate [Augmentin] 875-125 mg tablet 1 tab PO BID Qty: 14 RF: 0 (DME) leg brace Misc See Rx Instructions miscellaneous .MEDSUPPLY Qty: 1 RF: 0
[2021-06-01 20:07] VITALS: BP 128/64; PULSE 89; RESP 18; TEMP 36.8; O2SAT 97; BMI 53.5
[2021-06-01 20:48] LABS: COVID-19 Test Negative (Negative)
== END 2021-06-01 21:48 | disposition home or self-care (01) ==
PROVIDERS: Emergency Provider Internal Medicine; PCP Pediatrics
DX: B34.9 Viral infection, unspecified (principal); J06.9 Acute upper respiratory infection, unspecified; J44.9 Chronic obstructive pulmonary disease, unspecified; Z20.822 Contact with and (suspected) exposure to COVID-19
CPT/HCPCS: 36415; 71045; 87635; 99283

== ENCOUNTER 2021-06-06 06:09 | Day surgery (SDC) | payer OTHER, SELFPAY ==
[2021-06-06] VITALS (8 sets, daily range): BP systolic 110–134; BP diastolic 69–88; PULSE 75–103; RESP 16–23; TEMP 36.6–36.9; O2SAT 96–100; BMI 48.4
--- NOTE | 2021-06-06 06:54 | MHC.SHP ---
Pre-Procedural Eval Section A Date of Service: 06/06/21 The patient is an INPATIENT: No Changes since office visit: No Cold of Flu in the past 2 weeks, No New Medical Problems, No Changes in Medication and No Patient answered all questions The History & Physical has been completed within 30 days and I have reviewed it.: Yes Section B Chief Complaint: depression Details of Present Illness: Chronically dysphoric but stable, on maintenance ECT Relevant Family History (Specify if Yes): No Relevant Social History: None Present Medications: None Medical History: No relevant PMH History of Previous Operations: No relevant previous surgery Allergies: Allergies Allergy/AdvReac Type Severity Reaction Status Date / Time carbamazepine [From TEGRETOL] AdvReac Unknown NAUSEA & Verified 06/01/21 20:14 VOMITING Review of Systems Sugical H&P ROS: Negative: Constitution, Cardiovascular, Respiratory, Neurological, Psychiatric, Hem-Onc, Allergic/Immunologic, Gastrointestinal, Genitourinary, Musculoskeletal, Integumentary, Endocrine and Eyes/Ears/Nose/Throat Exam Surgical H&P Exam: Normal: HEENT, Normal: Heart, Normal: Lungs, Normal: Extremities, Normal: Abdomen, Normal: Skin and Normal: Neurological Plan Diagnosis/Plan: Unchanged I have reviewed the history and physical and performed a pertinent physical examination on my patient. No changes have occurred unless specified.
--- NOTE | 2021-06-06 07:00 | HO.ECTPROC ---
ECT Procedure Note Diagnosis/Treatment Date of Service: 06/06/21 Diagnosis: Bipolar disorder Previous ECT Date: 05/19/21 Treatment: Maintenance Interval Clinical Notes: The patient denies new symptoms, states that her depression is under control. ECT Settings Device: THYMATRON DGx Electrode Placement: Bitemporal Program/Pulse Width: 0.50 Energy Percent: 100 Seizure Duration By EEG (in seconds): 31 By Motor Observation (in seconds): 21 Medications Administration General Anesthetic: Etomidate (16) Muscle Relaxant: Succinylcholine (100) Ancillary Medications Analgesics: Torodol - Pre ECT Anti-emetics: Zofran - Pre ECT Miscillaneous Medications: Propofol Airway Management Airway Management: Bag Mask Ventilation Treatment Recommendations No Changes Recommended: No change Pt Tolerated Procedure w/o Issue: Yes
--- NOTE | 2021-06-06 07:01 | HO.ANESPROP2 ---
HPI - Anesthesia Eval Consult details Narrative: 36 yo female patient for ECT PMFSH Active Problems Active Problems: All Active Problems (Updated 06/02/21 @ 00:02 by Adiel Sevilla) Chronic post-traumatic stress disorder (PTSD) (Chronic) Sprain of anterior cruciate ligament of right knee (Acute) Self-inflicted injury (Acute) Lacerations of multiple sites of right arm (Acute) Injury of ligament of right knee (Acute) Increased BMI (Acute) GERD (gastroesophageal reflux disease) (Acute) Recurrent major depression-severe (Chronic) Borderline personality disorder (Chronic) Recent h/o bronchitis. CXR 06/01/21 - negative for acute process. ? exacerbation of asthma. On prednisone taper Past Medical History Medical History Acute post-traumatic stress disorder Adjustment disorder Anxiety Asthma Borderline personality disorder Chronic post-traumatic stress disorder (PTSD) COPD (chronic obstructive pulmonary disease) Depression GERD (gastroesophageal reflux disease) Increased BMI Injury, self-inflicted Intentional self-harm PTSD (post-traumatic stress disorder) Recurrent major depression-severe Schizoaffective disorder Self-harming behavior Suicidal ideation Suicidal ideation Family History Family history of problems with anesthesia: No Surgical History History of Problems with Anesthesia: No Social History Social History Household Members: None Household Members Other:: senior care Housing: House Do you presently have visiting nurse or other home services: Yes Alcohol intake: unknown Patient Tobacco Use Status: Current everyday Tobacco user Tobacco use type: Cigarette Cigarette Packs Per Day: 0.5 Cigarettes Per Day: 5 Years Smoked: 17 Second Hand Smoke Exposure: Yes Substance Use Type: Marijuana Advance Directives: No Advance Directives Information Provided: Yes service: No Sexual orientation: did not discuss. Meds Allergies Allergy/AdvReac Type Severity Reaction Status Date / Time carbamazepine [From TEGRETOL] AdvReac Unknown NAUSEA & Verified 06/01/21 20:14 VOMITING Active Medications: Current Medications Albuterol Sulfate (Albuterol Sulfate (0.083%) 2.5 Mg/3 Ml Vial.Neb) 2.5 mg INHALE ONCE PRN PRN Reason: Shortness of Breath/Wheezing Lactated Ringer's (Lr) 1,000 mls @ 100 mls/hr IVCONT .Q10H [facility] Home Medications Medication Instructions Recorded Confirmed Last Taken Type omeprazole 20 mg capsule,delayed 20 mg PO DAILY 11/29/20 03/30/21 12/24/20 08:00 History release acetaminophen 500 mg tablet 650 mg PO Q6H PRN 12/10/20 04/02/21 Unknown History albuterol sulfate 90 mcg/actuation 2 puff INHALATION Q6-8H PRN 12/10/20 04/02/21 Unknown History aerosol inhaler (ProAir HFA) nicotine 21 mg/24 hr daily 1 patch TRANSDERMAL DAILY 12/10/20 03/30/21 Unknown History transdermal patch cetirizine 10 mg tablet 10 mg PO DAILY 12/24/20 04/02/21 12/23/20 09:00 History fluticasone propionate 110 2 puff INHALATION BID 12/24/20 03/30/21 12/24/20 08:00 History mcg/actuation HFA aerosol inhaler (Flovent HFA) fluticasone propionate 50 1 spray INTRANASAL BID 12/24/20 03/30/21 12/24/20 09:00 History mcg/actuation nasal spray,suspension albuterol sulfate 90 mcg/actuation 2 puff INHALATION Q4H PRN 03/30/21 04/02/21 Unknown History aerosol inhaler (Ventolin HFA) benztropine 1 mg tablet 1 mg PO BID 03/30/21 04/02/21 03/30/21 07:00 History buspirone 30 mg tablet 30 mg PO BID 03/30/21 04/02/21 03/30/21 08:00 History clonidine HCl 0.1 mg tablet 0.1 mg PO BID 03/30/21 04/02/21 03/30/21 08:00 History cyclobenzaprine 5 mg tablet 5 mg PO BEDTIME PRN 03/30/21 04/02/21 Unknown History diphenhydramine HCl 50 mg capsule 50 mg PO BEDTIME PRN 03/30/21 03/30/21 Unknown History docusate sodium 100 mg capsule 100 mg PO BID 03/30/21 03/30/21 03/30/21 08:00 History (Colace) gabapentin 300 mg capsule 600 mg PO BID 03/30/21 04/02/21 03/30/21 08:00 History haloperidol decanoate 100 mg/mL 100 mg IM Q OTHER DAY 03/30/21 03/30/21 03/18/21 10:00 History intramuscular solution (Haldol Decanoate) lorazepam 1 mg tablet 1 mg PO QID PRN 03/30/21 03/30/21 Unknown History prazosin 2 mg capsule 2 mg PO BEDTIME 03/30/21 03/30/21 03/29/21 20:00 History quetiapine 100 mg tablet 600 mg PO BEDTIME 03/30/21 03/30/21 03/29/21 22:00 History sulindac 200 mg tablet 200 mg PO BID 03/30/21 03/30/21 03/30/21 08:00 History venlafaxine 150 mg 150 mg PO QAM 03/30/21 03/30/21 03/30/21 08:00 History capsule,extended release 24 hr venlafaxine 75 mg tablet,extended 75 mg PO QAM 03/30/21 03/30/21 03/30/21 08:00 History release 24 hr zolpidem 12.5 mg tablet,extended 1 tab PO BEDTIME 03/30/21 03/30/21 03/29/21 22:00 History release,multiphase Exam Exam Date and Time: June 06, 2021 0701 Height,Weight and Vital Signs: Height 4 ft 11 in Weight 108.862 kg Last Vital Signs Temp 98 F 06/06/21 06:44 Pulse 93 06/06/21 06:44 Resp 20 06/06/21 06:44 BP 110/79 06/06/21 06:44 Pulse Ox 97 06/06/21 06:44 Airway Mallampati Class: II TM Dist: >3cm Neck ROM: Full Loose/Missing/Broken Teeth: Yes (Some missing) Heart: RRR Lungs: Bilateral wheezes Assessment and Plan Assessment Anesthesia Assessment: Anesthesia Plan Discussed Final Anesthetic Review Family History of Problems with Anesthesia: No History of Problems with Anesthesia: No NPO: Yes ASA Class: III Final Preanesthetic Review: No Changes in Pt Med Stat, Meds/Allgs Chart Reviewed, Consent Obtained/Reviewed and Anes Risks/Benef Reviewed Patient Risk: Intermediate Procedure Risk: Intermediate Assessment/Block/Sedation in SS: Assess/Block/Sedation-SS Anesthetic Plan Anesthetic Plan: GA Disposition: Standard PACU
== END 2021-06-06 09:25 | disposition home or self-care (01) ==
PROVIDERS: PCP Pediatrics; Visit Provider Psychiatry & Neurology Psychiatry
PROC: (CPT 90870; principal; 2021-06-06 07:00)
DX: F33.3 Major depressive disorder, recurrent, severe with psychotic symptoms (principal); F43.10 Post-traumatic stress disorder, unspecified; J45.909 Unspecified asthma, uncomplicated; F17.210 Nicotine dependence, cigarettes, uncomplicated; Z79.899 Other long term (current) drug therapy; Z88.8 Allergy status to other drugs, medicaments and biological substances
CPT/HCPCS: 90870; J0330; J1642; J1885; J2405

== ENCOUNTER 2021-06-25 05:53 | Day surgery (SDC) | payer OTHER, SELFPAY ==
[2021-06-25] VITALS (9 sets, daily range): BP systolic 116–152; BP diastolic 70–87; PULSE 86–102; RESP 17–20; TEMP 36.6–37; O2SAT 93–97; BMI 51.9
[2021-06-25] MEDS: Lactated Ringers 1,000 ML 50 ML IVCONT (06:35)
--- NOTE | 2021-06-25 06:47 | P.CONAN_ITS ---
[facility] Active Problems Active Problems: All Active Problems (Updated 06/02/21 @ 00:02 by Adiel Brandt) Chronic post-traumatic stress disorder (PTSD) (Chronic) Sprain of anterior cruciate ligament of right knee (Acute) Self-inflicted injury (Acute) Lacerations of multiple sites of right arm (Acute) Injury of ligament of right knee (Acute) Increased BMI (Acute) GERD (gastroesophageal reflux disease) (Acute) Recurrent major depression-severe (Chronic) Borderline personality disorder (Chronic) Past Medical History Medical History Acute post-traumatic stress disorder Adjustment disorder Anxiety Asthma Borderline personality disorder Chronic post-traumatic stress disorder (PTSD) COPD (chronic obstructive pulmonary disease) Depression GERD (gastroesophageal reflux disease) Increased BMI Injury, self-inflicted Intentional self-harm PTSD (post-traumatic stress disorder) Recurrent major depression-severe Schizoaffective disorder Self-harming behavior Suicidal ideation Suicidal ideation Family History Family history of problems with anesthesia: No Surgical History History of Problems with Anesthesia: No Social History Social History Household Members: None Household Members Other:: [facility] Housing: House Do you presently have visiting nurse or other home services: Yes Alcohol intake: unknown Patient Tobacco Use Status: Current everyday Tobacco user Tobacco use type: Cigarette Cigarette Packs Per Day: 1 Cigarettes Per Day: 20.0 Years Smoked: 17 Smoked in Last 30 Days: Yes Second Hand Smoke Exposure: Yes Substance Use Type: Marijuana Are you DNR?: No Advance Directives: No Advance Directives Information Provided: Yes Recently lost weight without trying: No Patient : No : No Poor oral hygiene: No service: No Sexual orientation: did not discuss. Meds Allergies Allergy/AdvReac Type Severity Reaction Status Date / Time carbamazepine [From TEGRETOL] AdvReac Unknown NAUSEA & Verified 06/01/21 20:14 VOMITING Active Medications: Current Medications Lactated Ringer's (Lr) 1,000 mls @ 50 mls/hr IVCONT .Q20H [facility] Home Medications Medication Instructions Recorded Confirmed Last Taken Type omeprazole 20 mg capsule,delayed 20 mg PO DAILY 11/29/20 03/30/21 12/24/20 08:00 History release acetaminophen 500 mg tablet 650 mg PO Q6H PRN 12/10/20 04/02/21 Unknown History albuterol sulfate 90 mcg/actuation 2 puff INHALATION Q6-8H PRN 12/10/20 04/02/21 Unknown History aerosol inhaler (ProAir HFA) nicotine 21 mg/24 hr daily 1 patch TRANSDERMAL DAILY 12/10/20 03/30/21 Unknown History transdermal patch cetirizine 10 mg tablet 10 mg PO DAILY 12/24/20 04/02/21 12/23/20 09:00 History fluticasone propionate 110 2 puff INHALATION BID 12/24/20 03/30/21 12/24/20 08:00 History mcg/actuation HFA aerosol inhaler (Flovent HFA) fluticasone propionate 50 1 spray INTRANASAL BID 12/24/20 03/30/21 12/24/20 09:00 History mcg/actuation nasal spray,suspension albuterol sulfate 90 mcg/actuation 2 puff INHALATION Q4H PRN 03/30/21 04/02/21 Unknown History aerosol inhaler (Ventolin HFA) benztropine 1 mg tablet 1 mg PO BID 03/30/21 04/02/21 03/30/21 07:00 History buspirone 30 mg tablet 30 mg PO BID 03/30/21 04/02/21 03/30/21 08:00 History clonidine HCl 0.1 mg tablet 0.1 mg PO BID 03/30/21 04/02/21 03/30/21 08:00 History cyclobenzaprine 5 mg tablet 5 mg PO BEDTIME PRN 03/30/21 04/02/21 Unknown History diphenhydramine HCl 50 mg capsule 50 mg PO BEDTIME PRN 03/30/21 03/30/21 Unknown History docusate sodium 100 mg capsule 100 mg PO BID 03/30/21 03/30/21 03/30/21 08:00 History (Colace) gabapentin 300 mg capsule 600 mg PO BID 03/30/21 04/02/21 03/30/21 08:00 History haloperidol decanoate 100 mg/mL 100 mg IM Q OTHER DAY 03/30/21 03/30/21 03/18/21 10:00 History intramuscular solution (Haldol Decanoate) lorazepam 1 mg tablet 1 mg PO QID PRN 03/30/21 03/30/21 Unknown History prazosin 2 mg capsule 2 mg PO BEDTIME 03/30/21 03/30/21 03/29/21 20:00 History quetiapine 100 mg tablet 600 mg PO BEDTIME 03/30/21 03/30/21 03/29/21 22:00 History sulindac 200 mg tablet 200 mg PO BID 03/30/21 03/30/21 03/30/21 08:00 History venlafaxine 150 mg 150 mg PO QAM 03/30/21 03/30/21 03/30/21 08:00 History capsule,extended release 24 hr venlafaxine 75 mg tablet,extended 75 mg PO QAM 03/30/21 03/30/21 03/30/21 08:00 History release 24 hr zolpidem 12.5 mg tablet,extended 1 tab PO BEDTIME 03/30/21 03/30/21 03/29/21 22:00 History release,multiphase Exam Exam Date and Time: June 25, 2021 0647 Height,Weight and Vital Signs: Height 4 ft 11 in Weight 116.573 kg Last Vital Signs Temp 98.1 F 06/25/21 06:14 Pulse 102 H 06/25/21 06:14 Resp 17 06/25/21 06:14 BP 127/84 06/25/21 06:14 Pulse Ox 97 06/25/21 06:14 Airway Mallampati Class: III TM Dist: >3cm Neck ROM: Full Heart: rrr Lungs: cta Assessment and Plan Assessment Anesthesia Assessment: Anesthesia Plan Discussed and Chart Reviewed Final Anesthetic Review Family History of Problems with Anesthesia: No History of Problems with Anesthesia: No NPO: Yes ASA Class: III Final Preanesthetic Review: No Changes in Pt Med Stat, Meds/Allgs Chart Reviewed and Consent Obtained/Reviewed Patient Risk: Intermediate Procedure Risk: Intermediate Anesthetic Plan Anesthetic Plan: GA Disposition: Standard PACU
--- NOTE | 2021-06-25 07:03 | MHC.SHP ---
Pre-Procedural Eval Section A Date of Service: 06/25/21 The patient is an INPATIENT: No Changes since office visit: Yes New Medical Problems and Yes Patient answered all questions; No Cold of Flu in the past 2 weeks and No Changes in Medication The History & Physical has been completed within 30 days and I have reviewed it.: Yes Section B Chief Complaint: major depressive disorder Allergies: Allergies Allergy/AdvReac Type Severity Reaction Status Date / Time carbamazepine [From TEGRETOL] AdvReac Unknown NAUSEA & Verified 06/01/21 20:14 VOMITING Plan I have reviewed the history and physical and performed a pertinent physical examination on my patient. No changes have occurred unless specified.
--- NOTE | 2021-06-25 07:22 | HO.ECTPROC ---
ECT Procedure Note Diagnosis/Treatment Date of Service: 06/25/21 Diagnosis: Major Depressive Disorder Previous ECT Date: 06/06/21 Treatment: Maintenance Interval Clinical Notes: pt feeling more stable working ECT Settings Device: THYMATRON DGx Electrode Placement: Bitemporal Program/Pulse Width: 0.50 Energy Percent: 100 Seizure Duration By EEG (in seconds): 32 Medications Administration General Anesthetic: Etomidate Muscle Relaxant: Succinylcholine Ancillary Medications Analgesics: Torodol - Pre ECT Anti-emetics: Zofran - Pre ECT Miscillaneous Medications: Propofol Airway Management Airway Management: Bag Mask Ventilation Treatment Recommendations No Changes Recommended: No change Notes: pt doing well f/u 3 weeks Pt Tolerated Procedure w/o Issue: Yes
== END 2021-06-25 09:26 | disposition home or self-care (01) ==
PROVIDERS: PCP Pediatrics; Visit Provider Psychiatry & Neurology Psychiatry
PROC: (CPT 90870; principal; 2021-06-25 08:00)
DX: F33.2 Major depressive disorder, recurrent severe without psychotic features (principal); F43.10 Post-traumatic stress disorder, unspecified; F60.3 Borderline personality disorder; J45.909 Unspecified asthma, uncomplicated; F17.210 Nicotine dependence, cigarettes, uncomplicated; R45.851 Suicidal ideations; Z79.899 Other long term (current) drug therapy
CPT/HCPCS: 90870; J0330; J1642; J1885; J2405

== ENCOUNTER 2021-07-15 20:35 | Emergency (ER) | payer OTHER, SELFPAY ==
[2021-07-15 20:40] VITALS: BP 135/73; PULSE 106; RESP 18; TEMP 36.6; O2SAT 97; BMI 52.4
--- NOTE | 2021-07-15 20:42 | ED.PSYCH ---
HPI - Psych General Chief Complaint: ETOH/Substance Use Stated Complaint: NOT FEELING WELL AFTER SMOKING MARIJUANA Time Seen by Provider: 07/15/21 20:40 Source: patient and EMS Mode of arrival: EMS Limitations: no limitations History of Present Illness HPI Narrative: 36-year-old female presents via EMS for not feeling well after smoking marijuana yesterday Patient feels like the marijuana was laced with fentanyl. MD complaint: substance abuse Onset (ago): day(s) (2) Duration: constant History of same: Yes Relieving factors: none Exacerbating factors: drug use Context: other (Marijuana use) Associated psychiatric symptoms: none Associated symptoms: denies other symptoms Treatments prior to arrival: none Related Data Home Medications Medication Instructions Recorded Confirmed omeprazole 20 mg capsule,delayed 20 mg PO DAILY 11/29/20 03/30/21 release acetaminophen 500 mg tablet 650 mg PO Q6H PRN 12/10/20 04/02/21 albuterol sulfate 90 mcg/actuation 2 puff INHALATION Q6-8H PRN 12/10/20 04/02/21 aerosol inhaler (ProAir HFA) nicotine 21 mg/24 hr daily 1 patch TRANSDERMAL DAILY 12/10/20 03/30/21 transdermal patch cetirizine 10 mg tablet 10 mg PO DAILY 12/24/20 04/02/21 fluticasone propionate 110 2 puff INHALATION BID 12/24/20 03/30/21 mcg/actuation HFA aerosol inhaler (Flovent HFA) fluticasone propionate 50 1 spray INTRANASAL BID 12/24/20 03/30/21 mcg/actuation nasal spray,suspension albuterol sulfate 90 mcg/actuation 2 puff INHALATION Q4H PRN 03/30/21 04/02/21 aerosol inhaler (Ventolin HFA) benztropine 1 mg tablet 1 mg PO BID 03/30/21 04/02/21 buspirone 30 mg tablet 30 mg PO BID 03/30/21 04/02/21 clonidine HCl 0.1 mg tablet 0.1 mg PO BID 03/30/21 04/02/21 cyclobenzaprine 5 mg tablet 5 mg PO BEDTIME PRN 03/30/21 04/02/21 diphenhydramine HCl 50 mg capsule 50 mg PO BEDTIME PRN 03/30/21 03/30/21 docusate sodium 100 mg capsule 100 mg PO BID 03/30/21 03/30/21 (Colace) gabapentin 300 mg capsule 600 mg PO BID 03/30/21 04/02/21 haloperidol decanoate 100 mg/mL 100 mg IM Q OTHER DAY 03/30/21 03/30/21 intramuscular solution (Haldol Decanoate) lorazepam 1 mg tablet 1 mg PO QID PRN 03/30/21 03/30/21 prazosin 2 mg capsule 2 mg PO BEDTIME 03/30/21 03/30/21 quetiapine 100 mg tablet 600 mg PO BEDTIME 03/30/21 03/30/21 sulindac 200 mg tablet 200 mg PO BID 03/30/21 03/30/21 venlafaxine 150 mg 150 mg PO QAM 03/30/21 03/30/21 capsule,extended release 24 hr venlafaxine 75 mg tablet,extended 75 mg PO QAM 03/30/21 03/30/21 release 24 hr zolpidem 12.5 mg tablet,extended 1 tab PO BEDTIME 03/30/21 03/30/21 release,multiphase Previous Rx's Medication Instructions Recorded haloperidol 5 mg tablet 5 mg PO BID PRN 30 Days #60 tab 08/19/20 trazodone 50 mg tablet 50 mg PO BEDTIME PRN 30 Days #30 08/19/20 tab leg brace #1 ea 11/14/20 ondansetron 4 mg disintegrating 4 mg PO Q8H PRN #20 tab 02/04/21 tablet benzonatate 100 mg capsule 100 mg PO TID PRN #20 cap 04/18/21 (Melanie Browne) prednisone 20 mg tablet 40 mg PO DAILY #10 tab 04/18/21 hydrocortisone acetate 25 mg 25 mg AR BID #12 ea 05/03/21 rectal suppository (Anusol-HC) amoxicillin 875 mg-potassium 1 tab PO BID #14 tab 05/16/21 clavulanate 125 mg tablet (Augmentin) prednisone 20 mg tablet 20 mg PO DAILY 4 Days #4 tab 05/16/21 Allergies Allergy/AdvReac Type Severity Reaction Status Date / Time carbamazepine [From TEGRETOL] AdvReac Unknown NAUSEA & Verified 06/01/21 20:14 VOMITING Review of Systems Review of Systems: Constitutional: No Fever, No Chills ENT/Mouth: No sore throat, No Rhinorrhea Eyes: No Eye Pain, No Swelling, No Redness Cardiovascular: No Chest Pain, No SOB Respiratory: No Cough, No Sputum Gastrointestinal: Positive Nausea, No Vomiting, No Diarrhea, No abdominal Pain Genitourinary: No Dysuria, No Hematuria Musculoskeletal: No joint pain, No Myalgias, No Joint Swelling Skin: No Skin Lesions, No rash Neuro: No Weakness, No Numbness, No Loss of Consciousness, No Dizziness, No Headache Psych: Positive marijuana use, No Anxiety, No Depression, No SI/HI/AH/VH Heme/Lymph: No Bruising, No Bleeding,No Lymphadenopathy Endocrine: No Polyuria, No Polydipsia Yes all other systems are reviewed and are negative PMFSH Past Medical History Attestation statement: The following information was validated with the patient. Source: old records reviewed Medical History Acute post-traumatic stress disorder Adjustment disorder Anxiety Asthma Borderline personality disorder Chronic post-traumatic stress disorder (PTSD) COPD (chronic obstructive pulmonary disease) Depression GERD (gastroesophageal reflux disease) Increased BMI Injury, self-inflicted Intentional self-harm PTSD (post-traumatic stress disorder) Recurrent major depression-severe Schizoaffective disorder Self-harming behavior Suicidal ideation Suicidal ideation Social History Social History Household Members: None Household Members Other:: [facility] Housing: House Do you presently have visiting nurse or other home services: Yes Alcohol intake: unknown Patient Tobacco Use Status: Current everyday Tobacco user Tobacco use type: Cigarette Cigarette Packs Per Day: 1 Cigarettes Per Day: 20.0 Years Smoked: 17 Second Hand Smoke Exposure: Yes Substance Use Type: Marijuana Advance Directives: No Advance Directives Information Provided: Yes service: No Sexual orientation: did not discuss. Physical Exam Vital Signs: Vital Signs: Last Vital Signs Temp 98 F 07/15/21 20:40 Pulse 106 H 07/15/21 20:40 Resp 18 07/15/21 20:40 BP 135/73 07/15/21 20:40 Pulse Ox 97 07/15/21 20:40 Body Mass Index 52.4 Appearance: Alert. Oriented X3. No acute distress. Eyes: Pupils equal, round and reactive to light. ENT: Pharynx normal. Neck: Normal inspection. Neck supple. CVS: Normal heart rate and rhythm. Pulses normal. Respiratory: No respiratory distress. Breath sounds normal. Abdomen: Soft and nontender. Skin: Skin warm and dry. Normal skin color. Normal skin turgor. Extremities: Moves all extremities against resistance. Neuro: No motor deficit. No sensory deficit. Cranial nerves 2 through 12 intact. Course Course Course Narrative: 36-year-old female presents via EMS for feeling weird after smoking marijuana. She states that she feels like the marijuana was laced with fentanyl. This patient is well-known to this facility. She has been doing really well psychologically, has not reported any suicidal or homicidal ideation and has not participated in any self-harm. At this time will order drugs of abuse screen and Zofran. Patient was updated that tox screen is positive for fentanyl. Patient was advised to smoke marijuana from the dispensary rather than the street. Will discharge home with Narcan. Patient verbalized understanding of and agrees plan of care discharge home. MDM - Psych Differential Diagnosis Differential diagnosis: Likely substance abuse Medical Records Attestation: I reviewed the patient's medical records. Lab Data Attestation: I reviewed the patient's lab results. Labs: Lab Results 07/15/21 07/15/21 Range/Units 20:50 Unknown Urine Color YELLOW Urine Appearance HAZY Urine pH 6.0 (5.0-8.0) Ur Specific [place] >= 1.030 H (1.005-1.025) Urine Protein NEG (NEG-TRACE) MG/DL Urine Glucose (UA) NEG (NEG) MG/DL Urine Ketones 5 (NEG) MG/DL Urine Blood TRACE (NEG) Urine Nitrite NEG (NEG) Ur Leukocyte Esterase NEG (NEG) Urine RBC 0-2 (0) /HPF Urine WBC 0-2 (0-4) /HPF Ur Squamous Epith Cells 3+ /LPF Urine Bacteria 1+ /LPF Urine Mucus 1+ /LPF Urine Opiates Screen Not Detected (Not Detect) Urine Fentanyl Screen POSITIVE H (Not Detect) Ur Barbiturates Screen Not Detected (Not Detect) Ur Phencyclidine Scrn Not Detected (Not Detect) Ur Amphetamines Screen Not Detected (Not Detect) U Benzodiazepines Scrn Not Detected (Not Detect) Urine Cocaine Screen Not Detected (Not Detect) U Marijuana (THC) Screen POSITIVE H (Not Detect) Discharge Plan Discharge Clinical Impression: Accidental fentanyl poisoning Qualifiers: Encounter type: initial encounter Qualified Code(s): T40.411A - Poisoning by fentanyl or fentanyl analogs, accidental (unintentional), initial encounter Patient Disposition: Home, Self-Care Instructions: Narcotic Safety (ED) Additional Instructions: You were evaluated for suspected fentanyl exposure. Your tox screen is positive for fentanyl. If he continue to use marijuana please use marijuana from the dispensary as prescribed. Thank you for choosing this emergency department for evaluation. Please follow-up with primary care physician as needed. Return to the emergency department for any new, concerning, or worsening symptoms. Prescriptions: No Action omeprazole 20 mg capsule,delayed release(DR/EC) 20 mg PO DAILY RF: 0 ondansetron 4 mg tablet,disintegrating 4 mg PO Q8H PRN (Reason: nausea and vomiting) Qty: 20 RF: 0 benzonatate [Tessalon Perles] 100 mg capsule 100 mg PO TID PRN (Reason: cough) Qty: 20 RF: 0 prednisone 20 mg tablet 40 mg PO DAILY Qty: 10 RF: 0 trazodone 50 mg Tablet 50 mg PO BEDTIME PRN (Reason: Insomnia) 30 Days Qty: 30 RF: 0 haloperidol 5 mg Tablet 5 mg PO BID PRN (Reason: psychosis) 30 Days Qty: 60 RF: 0 albuterol sulfate [ProAir HFA] 90 mcg/actuation HFA aerosol inhaler 2 puff inhalation Q6-8H PRN (Reason: Wheezing) RF: 0 acetaminophen 500 mg Tablet 650 mg PO Q6H PRN (Reason: Pain) RF: 0 nicotine 21 mg/24 hr Patch 24 Hour 1 patch TRANSDERMAL DAILY RF: 0 cetirizine 10 mg Tablet 10 mg PO DAILY RF: 0 fluticasone propionate 50 mcg/actuation spray,suspension 1 spray intranasal BID RF: 0 Flovent HFA 110 mcg/actuation HFA aerosol inhaler 2 puff inhalation BID RF: 0 zolpidem 12.5 mg tablet,ext release multiphase 1 tab PO BEDTIME RF: 0 benztropine 1 mg Tablet 1 mg PO BID RF: 0 buspirone 30 mg Tablet 30 mg PO BID RF: 0 docusate sodium [Colace] 100 mg capsule 100 mg PO BID RF: 0 prazosin 2 mg Capsule 2 mg PO BEDTIME RF: 0 quetiapine 100 mg Tablet 600 mg PO BEDTIME RF: 0 sulindac 200 mg Tablet 200 mg PO BID RF: 0 haloperidol decanoate [Haldol Decanoate] 100 mg/mL solution 100 mg IM Q OTHER DAY RF: 0 gabapentin 300 mg capsule 600 mg PO BID RF: 0 clonidine HCl 0.1 mg tablet 0.1 mg PO BID RF: 0 venlafaxine 150 mg Capsule,Extended Release 24hr 150 mg PO QAM RF: 0 venlafaxine 75 mg Tablet Extended Release 24hr 75 mg PO QAM RF: 0 diphenhydramine HCl [Benadryl] 50 mg Capsule 50 mg PO BEDTIME PRN (Reason: Insomnia) RF: 0 lorazepam 1 mg tablet 1 mg PO QID PRN (Reason: Anxiety/Restlessness ) RF: 0 cyclobenzaprine 5 mg Tablet 5 mg PO BEDTIME PRN (Reason: Muscle Spasm) RF: 0 albuterol sulfate [Ventolin HFA] 90 mcg/actuation HFA aerosol inhaler 2 puff inhalation Q4H PRN (Reason: wheezing) RF: 0 hydrocortisone acetate [Anusol-HC] 25 mg suppository 25 mg AR BID Qty: 12 RF: 0 prednisone 20 mg tablet 20 mg PO DAILY 4 Days Qty: 4 RF: 0 amoxicillin-pot clavulanate [Augmentin] 875-125 mg tablet 1 tab PO BID Qty: 14 RF: 0 (DME) leg brace Misc See Rx Instructions miscellaneous .MEDSUPPLY Qty: 1 RF: 0 Discharge Date/Time: 07/15/21 21:59
[2021-07-15] MEDS: Ondansetron ODT 4 MG TAB.RAPDIS TRANSLINGU (20:48)
[2021-07-15 21:00] LABS: Appearance Urine HAZY; Color Urine YELLOW; Glucose Urine UA NEG (NEG); Leukocyte Esterase Urine NEG (NEG); Nitrite Urine NEG (NEG); Specific Gravity - Urine >= 1.030 (1.005-1.025); UACC Culture Trigger NO; Urine Blood TRACE (NEG); Urine Ketones 5 MG/DL (NEG); Urine Protein NEG (NEG-TRACE)
[2021-07-15 21:07] LABS: Bacteria Urine 1+ /LPF; Mucus Urine 1+ /LPF; RBC Urine 0-2 /HPF (0); Squamous Epithelial Cell Urine 3+ /LPF; WBC Urine 0-2 /HPF (0-4)
[2021-07-15 21:32] LABS: Amphetamine Screen Urine Not Detected (Not Detect); Barbiturates, Urine Not Detected (Not Detect); Benzodiazepines Screen Urine Not Detected (Not Detect); Cannabinoid Screen Urine POSITIVE (Not Detect); Cocaine Screen Urine Not Detected (Not Detect); Fentanyl, urine POSITIVE (Not Detect); Opiate Screen Urine Not Detected (Not Detect); Phencyclidine Screen Urine Not Detected (Not Detect)
[2021-07-15] MEDS: Naloxone HCl Nasal TAKE HOME 4 MG SPRAY NOSTRILALT (22:00)
== END 2021-07-15 21:59 | disposition home or self-care (01) ==
PROVIDERS: Nurse Practitioner Family; Emergency Provider Emergency Medicine
DX: T40.411A Poisoning by fentanyl or fentanyl analogs, accidental (unintentional), initial encounter (principal); Y92.410 Unspecified street and highway as the place of occurrence of the external cause; F17.200 Nicotine dependence, unspecified, uncomplicated; F12.90 Cannabis use, unspecified, uncomplicated
CPT/HCPCS: 80307; 81001; 81003; 99283

== ENCOUNTER 2021-07-18 05:57 | Day surgery (SDC) | payer OTHER, SELFPAY ==
[2021-07-18] VITALS (7 sets, daily range): BP systolic 98–130; BP diastolic 56–88; PULSE 81–103; RESP 16–23; TEMP 36.5–37.1; O2SAT 92–98; BMI 52.4
--- NOTE | 2021-07-18 06:42 | P.CONAN_ITS ---
[facility] Active Problems Active Problems: All Active Problems (Updated 07/16/21 @ 00:02 by Adiel Brandt) Chronic post-traumatic stress disorder (PTSD) (Chronic) Sprain of anterior cruciate ligament of right knee (Acute) Self-inflicted injury (Acute) Lacerations of multiple sites of right arm (Acute) Injury of ligament of right knee (Acute) Increased BMI (Acute) GERD (gastroesophageal reflux disease) (Acute) Recurrent major depression-severe (Chronic) Borderline personality disorder (Chronic) Past Medical History Medical History Acute post-traumatic stress disorder Adjustment disorder Anxiety Asthma Borderline personality disorder Chronic post-traumatic stress disorder (PTSD) COPD (chronic obstructive pulmonary disease) Depression GERD (gastroesophageal reflux disease) Increased BMI Injury, self-inflicted Intentional self-harm PTSD (post-traumatic stress disorder) Recurrent major depression-severe Schizoaffective disorder Self-harming behavior Suicidal ideation Suicidal ideation Family History Family history of problems with anesthesia: No Surgical History History of Problems with Anesthesia: No Social History Social History Household Members: None Household Members Other:: residential Housing: House Do you presently have visiting nurse or other home services: Yes Alcohol intake: unknown Patient Tobacco Use Status: Current everyday Tobacco user Tobacco use type: Cigarette Cigarette Packs Per Day: 1 Cigarettes Per Day: 20.0 Years Smoked: 17 Second Hand Smoke Exposure: Yes Use of substances other than those prescribed or required for medical reasons: No Substance Use Type: Marijuana Are you DNR?: No Advance Directives: No Advance Directives Information Provided: Yes service: No Sexual orientation: did not discuss. Meds Allergies Allergy/AdvReac Type Severity Reaction Status Date / Time carbamazepine [From TEGRETOL] AdvReac Unknown NAUSEA & Verified 06/01/21 20:14 VOMITING Active Medications: Current Medications Lactated Ringer's (Lr) 1,000 mls @ 50 mls/hr IVCONT .Q20H [facility], [facility] Home Medications Medication Instructions Recorded Confirmed Last Taken Type omeprazole 20 mg capsule,delayed 20 mg PO DAILY 11/29/20 03/30/21 12/24/20 08:00 History release acetaminophen 500 mg tablet 650 mg PO Q6H PRN 12/10/20 04/02/21 Unknown History albuterol sulfate 90 mcg/actuation 2 puff INHALATION Q6-8H PRN 12/10/20 04/02/21 Unknown History aerosol inhaler (ProAir HFA) nicotine 21 mg/24 hr daily 1 patch TRANSDERMAL DAILY 12/10/20 03/30/21 Unknown History transdermal patch cetirizine 10 mg tablet 10 mg PO DAILY 12/24/20 04/02/21 12/23/20 09:00 History fluticasone propionate 110 2 puff INHALATION BID 12/24/20 03/30/21 12/24/20 08:00 History mcg/actuation HFA aerosol inhaler (Flovent HFA) fluticasone propionate 50 1 spray INTRANASAL BID 12/24/20 03/30/21 12/24/20 09:00 History mcg/actuation nasal spray,suspension albuterol sulfate 90 mcg/actuation 2 puff INHALATION Q4H PRN 03/30/21 04/02/21 Unknown History aerosol inhaler (Ventolin HFA) benztropine 1 mg tablet 1 mg PO BID 03/30/21 04/02/21 03/30/21 07:00 History buspirone 30 mg tablet 30 mg PO BID 03/30/21 04/02/21 03/30/21 08:00 History clonidine HCl 0.1 mg tablet 0.1 mg PO BID 03/30/21 04/02/21 03/30/21 08:00 History cyclobenzaprine 5 mg tablet 5 mg PO BEDTIME PRN 03/30/21 04/02/21 Unknown History diphenhydramine HCl 50 mg capsule 50 mg PO BEDTIME PRN 03/30/21 03/30/21 Unknown History docusate sodium 100 mg capsule 100 mg PO BID 03/30/21 03/30/21 03/30/21 08:00 History (Colace) gabapentin 300 mg capsule 600 mg PO BID 03/30/21 04/02/21 03/30/21 08:00 History haloperidol decanoate 100 mg/mL 100 mg IM Q OTHER DAY 03/30/21 03/30/21 03/18/21 10:00 History intramuscular solution (Haldol Decanoate) lorazepam 1 mg tablet 1 mg PO QID PRN 03/30/21 03/30/21 Unknown History prazosin 2 mg capsule 2 mg PO BEDTIME 03/30/21 03/30/21 03/29/21 20:00 History quetiapine 100 mg tablet 600 mg PO BEDTIME 03/30/21 03/30/21 03/29/21 22:00 History sulindac 200 mg tablet 200 mg PO BID 03/30/21 03/30/21 03/30/21 08:00 History venlafaxine 150 mg 150 mg PO QAM 03/30/21 03/30/21 03/30/21 08:00 History capsule,extended release 24 hr venlafaxine 75 mg tablet,extended 75 mg PO QAM 03/30/21 03/30/21 03/30/21 08:00 History release 24 hr zolpidem 12.5 mg tablet,extended 1 tab PO BEDTIME 03/30/21 03/30/21 03/29/21 22:00 History release,multiphase cariprazine 3 mg capsule (Vraylar) 1 cap PO DAILY 07/18/21 07/18/21 Unknown History Exam Exam Date and Time: July 18, 2021 0642 Height,Weight and Vital Signs: Height 4 ft 11 in Weight 117.934 kg Last Vital Signs Temp 97.7 F 07/18/21 06:26 Pulse 92 07/18/21 06:26 Resp 18 07/18/21 06:26 BP 130/88 07/18/21 06:26 Pulse Ox 98 07/18/21 06:26 Airway Mallampati Class: III TM Dist: >3cm Neck ROM: Full Heart: rrr Lungs: wheezes BL Assessment and Plan Assessment Anesthesia Assessment: Anesthesia Plan Discussed and Chart Reviewed Final Anesthetic Review Family History of Problems with Anesthesia: No History of Problems with Anesthesia: No NPO: Yes ASA Class: III Final Preanesthetic Review: No Changes in Pt Med Stat, Meds/Allgs Chart Reviewed and Consent Obtained/Reviewed Patient Risk: Intermediate Procedure Risk: Intermediate Anesthetic Plan Anesthetic Plan: GA Disposition: Standard PACU
[2021-07-18] MEDS: Albuterol Sulfate (0.083%) 2.5 MG/3 ML VIAL.NEB INHALE (07:04)
--- NOTE | 2021-07-18 07:08 | MHC.SHP ---
Pre-Procedural Eval Section A Date of Service: 07/18/21 The patient is an INPATIENT: No Section B Chief Complaint: depression Details of Present Illness: recurrent depression ptsd Relevant Social History: None Present Medications: see Short Stay Collaborative assessment Medical History: Significant History (asthma ) Allergies: Allergies Allergy/AdvReac Type Severity Reaction Status Date / Time carbamazepine [From TEGRETOL] AdvReac Unknown NAUSEA & Verified 06/01/21 20:14 VOMITING Exam Surgical H&P Exam: Normal: HEENT, Normal: Heart and Normal: Neurological and Significant Findings: Lungs (some dec breath sounds ) Plan Diagnosis/Plan: Unchanged I have reviewed the history and physical and performed a pertinent physical examination on my patient. No changes have occurred unless specified.
--- NOTE | 2021-07-18 07:12 | HO.ECTPROC ---
ECT Procedure Note Diagnosis/Treatment Date of Service: 07/18/21 Diagnosis: Major Depressive Disorder Treatment: Maintenance Interval Clinical Notes: Patient states she has been fairly stable working at [employer] ECT Settings Device: THYMATRON DGx Electrode Placement: Bitemporal Program/Pulse Width: 0.50 Energy Percent: 100 Seizure Duration By EEG (in seconds): 22 Medications Administration General Anesthetic: Etomidate Muscle Relaxant: Succinylcholine Ancillary Medications Miscillaneous Medications: Propofol Airway Management Airway Management: Bag Mask Ventilation Treatment Recommendations No Changes Recommended: No change Notes: try flumazenil next tx Pt Tolerated Procedure w/o Issue: Yes
== END 2021-07-18 09:20 | disposition home or self-care (01) ==
PROVIDERS: PCP Pediatrics; Visit Provider Psychiatry & Neurology Psychiatry
PROC: (CPT 90870; principal; 2021-07-18 07:30)
DX: F33.9 Major depressive disorder, recurrent, unspecified (principal); F43.10 Post-traumatic stress disorder, unspecified; J45.909 Unspecified asthma, uncomplicated; F17.210 Nicotine dependence, cigarettes, uncomplicated
CPT/HCPCS: 90870; J0330; J1642; J1885; J2405

== ENCOUNTER 2021-07-26 16:00 | Emergency (ER) | payer OTHER, SELFPAY ==
[2021-07-26 16:03] VITALS: BP 151/92; PULSE 120; RESP 18; TEMP 36.7; O2SAT 96; BMI 51.2
--- NOTE | 2021-07-26 19:06 | ED.GENADULT ---
HPI - General Adult General Chief complaint: General Medical Stated complaint: ?OD Time Seen by Provider: 07/26/21 19:06 Source: patient, EMS and RN notes reviewed Mode of arrival: EMS Limitations: no limitations History of Present Illness HPI narrative: 36-year-old with past medical history of PTSD, self-inflicted injury, GERD, depression, borderline personality disorder, major depression is here today for evaluation. Patient smoked marijuana and reports that she started having a palpitation. Patient gave herself Narcan as she was worried that the marijuana was laced with fentanyl. Patient denies feeling drowsy or dizzy after smoking it. Patient denies any chest pain nausea, vomiting, abdominal pain, discomfort. Patient denies any SI or HI. Patient reports that she started working at [employer]. She only smoke marijuana because she wanted make herself feel better. Patient reports that she hit her head couple days ago and Was feeling nauseous and was trying to make herself feel better with marijuana. Patient denies any other GI, cardiac, respiratory concerning symptoms.. Related Data Home Medications Medication Instructions Recorded Confirmed omeprazole 20 mg capsule,delayed 20 mg PO DAILY 11/29/20 03/30/21 release acetaminophen 500 mg tablet 650 mg PO Q6H PRN 12/10/20 04/02/21 albuterol sulfate 90 mcg/actuation 2 puff INHALATION Q6-8H PRN 12/10/20 04/02/21 aerosol inhaler (ProAir HFA) nicotine 21 mg/24 hr daily 1 patch TRANSDERMAL DAILY 12/10/20 03/30/21 transdermal patch cetirizine 10 mg tablet 10 mg PO DAILY 12/24/20 04/02/21 fluticasone propionate 110 2 puff INHALATION BID 12/24/20 03/30/21 mcg/actuation HFA aerosol inhaler (Flovent HFA) fluticasone propionate 50 1 spray INTRANASAL BID 12/24/20 03/30/21 mcg/actuation nasal spray,suspension albuterol sulfate 90 mcg/actuation 2 puff INHALATION Q4H PRN 03/30/21 04/02/21 aerosol inhaler (Ventolin HFA) benztropine 1 mg tablet 1 mg PO BID 03/30/21 04/02/21 buspirone 30 mg tablet 30 mg PO BID 03/30/21 04/02/21 clonidine HCl 0.1 mg tablet 0.1 mg PO BID 03/30/21 04/02/21 cyclobenzaprine 5 mg tablet 5 mg PO BEDTIME PRN 03/30/21 04/02/21 diphenhydramine HCl 50 mg capsule 50 mg PO BEDTIME PRN 03/30/21 03/30/21 docusate sodium 100 mg capsule 100 mg PO BID 03/30/21 03/30/21 (Colace) gabapentin 300 mg capsule 600 mg PO BID 03/30/21 04/02/21 haloperidol decanoate 100 mg/mL 100 mg IM Q OTHER DAY 03/30/21 03/30/21 intramuscular solution (Haldol Decanoate) lorazepam 1 mg tablet 1 mg PO QID PRN 03/30/21 03/30/21 prazosin 2 mg capsule 2 mg PO BEDTIME 03/30/21 03/30/21 quetiapine 100 mg tablet 600 mg PO BEDTIME 03/30/21 03/30/21 sulindac 200 mg tablet 200 mg PO BID 03/30/21 03/30/21 venlafaxine 150 mg 150 mg PO QAM 03/30/21 03/30/21 capsule,extended release 24 hr venlafaxine 75 mg tablet,extended 75 mg PO QAM 03/30/21 03/30/21 release 24 hr zolpidem 12.5 mg tablet,extended 1 tab PO BEDTIME 03/30/21 03/30/21 release,multiphase cariprazine 3 mg capsule (Vraylar) 1 cap PO DAILY 07/18/21 07/18/21 Previous Rx's Medication Instructions Recorded haloperidol 5 mg tablet 5 mg PO BID PRN 30 Days #60 tab 08/19/20 trazodone 50 mg tablet 50 mg PO BEDTIME PRN 30 Days #30 08/19/20 tab leg brace #1 ea 11/14/20 ondansetron 4 mg disintegrating 4 mg PO Q8H PRN #20 tab 02/04/21 tablet benzonatate 100 mg capsule 100 mg PO TID PRN #20 cap 04/18/21 ([place]) prednisone 20 mg tablet 40 mg PO DAILY #10 tab 04/18/21 hydrocortisone acetate 25 mg 25 mg TN BID #12 ea 05/03/21 rectal suppository (Anusol-HC) amoxicillin 875 mg-potassium 1 tab PO BID #14 tab 05/16/21 clavulanate 125 mg tablet (Augmentin) prednisone 20 mg tablet 20 mg PO DAILY 4 Days #4 tab 05/16/21 Allergies Allergy/AdvReac Type Severity Reaction Status Date / Time carbamazepine [From TEGRETOL] AdvReac Unknown NAUSEA & Verified 06/01/21 20:14 VOMITING Review of Systems Review of Systems: Constitutional : No Weight loss, No Fever, No Chills, No Night Sweats, No Fatigue, No Malaise ENT/Mouth : No Hearing loss, No Ear Pain, No Nasal Congestion, No Sinus Pain, No Hoarseness, No sore throat, No Rhinorrhea, No Swallowing Difficulty Eyes: No Eye Pain, No Swelling, No Redness, No Foreign Body, No Discharge, No Vision Changes Cardiovascular : No Chest Pain, No SOB, No Dyspnea on Exertion, No Orthopnea, No Edema, No Palpitations Respiratory : No Cough, No Sputum, No Wheezing, No Smoke Exposure, No Dyspnea Gastrointestinal : Nausea, No Vomiting, No Diarrhea, No Constipation, No abdominal Pain, No Hematochezia, No Melena Genitourinary : no irregular bleeding, No Dysuria, No Urinary Frequency, No Hematuria, No Urinary Incontinence, No Urgency, No Flank Pain, No Urinary Flow Changes, No Hesitancy Musculoskeletal : No joint pain, No Myalgias, No Joint Swelling Skin : No Skin Lesions, No rash Neuro : No Weakness, No Numbness, No Paresthesias, No Loss of Consciousness, No Dizziness, No Headache Psych : No Anxiety/Panic, No Depression, No SI/HI/AH/VH, No Social Issues, Yes all other systems are reviewed and are negative [facility] Past Medical History Medical History Acute post-traumatic stress disorder Adjustment disorder Anxiety Asthma Borderline personality disorder Chronic post-traumatic stress disorder (PTSD) COPD (chronic obstructive pulmonary disease) Depression GERD (gastroesophageal reflux disease) Increased BMI Injury, self-inflicted Intentional self-harm PTSD (post-traumatic stress disorder) Recurrent major depression-severe Schizoaffective disorder Self-harming behavior Suicidal ideation Suicidal ideation Social History Social History Household Members: None Household Members Other:: retirement Housing: House Do you presently have visiting nurse or other home services: Yes Alcohol intake: unknown Patient Tobacco Use Status: Current everyday Tobacco user Tobacco use type: Cigarette Cigarette Packs Per Day: 1 Cigarettes Per Day: 20.0 Years Smoked: 17 Second Hand Smoke Exposure: Yes Substance Use Type: Marijuana Advance Directives: No Advance Directives Information Provided: No service: No Sexual orientation: did not discuss. Physical Exam Vital Signs: Vital Signs: Last Vital Signs Temp 98.0 F 07/26/21 16:03 Pulse 120 H 07/26/21 16:03 Resp 18 07/26/21 16:03 BP 151/92 H 07/26/21 16:03 Pulse Ox 96 07/26/21 16:03 BMI result Body Mass Index 51.2 Const: General: healthy appearing, no acute distress and well developed Nutritional Appearance: well nourished Orientation/consciousness: patient oriented x3 HENMT: Head: Yes normal to inspection, Yes normocephalic and Yes atraumatic Face and sinus: Yes normal facial exam Mouth: Normal oral and palatal mucosa present Throat: Yes posterior oropharynx normal, Yes tonsils normal and Yes uvula midline Eyes: General: appearance normal, both eyes and all related structures Neck: Neck: Yes normal visual inspection, Yes full ROM and Yes trachea midline Thyroid: Thyroid normal Resp: Effort & Inspection: normal respiratory effort, able to speak in complete sentences, no tracheal deviation and symmetric chest movement Auscultation: clear to auscultation bilaterally Cardio: Jugular venous distension: no JVD Rate: regular rate Heart sounds: S1 normal heart sound present, S2 normal heart sound present, no gallops and no murmurs GI: Inspection: Yes normal to inspection, No distended and Yes obesity Palpation (GI): Soft to palpation, not firm, nontender and No hepatosplenomegaly present Auscultation: normal bowel sounds : General: Yes no CVA tenderness Back/Spine/Pelvis: Back: no CVA tenderness Skin: General skin exam: elasticity normal, turgor normal and dry skin Neuro: General: patient oriented x3 Extrem: Other: patient has multiple old scars on bilateral upper and lower extremities from cutting . Psych: Appearance: grossly normal Mental Status: mental status grossly normal Speech and movement: Normal speech and movement present Affect: normal affect Attitude: cooperative Thought process: Normal thought process present Thought content: Normal thought content present Insight: Good insight present (Psych) Judgement: Good judgement present (Psych) Course Course Course Narrative: 36-year-old female is here today for evaluation. Patient reports that she smoked marijuana few hours ago. Patient panicked, she thought that marijuana was laced with fentanyl. Patient administered herself Narcan. Patient denies feeling drowsy, weak, dizzy. Heart rate 78. EKG done and normal. Patient reports that she does not believe that there was sentinel in the marijuana she smoked, however she wanted to make sure that she was feeling safe. Patient reports that she is feeling fine otherwise. Denies any SI or HI. Patient reports that she is holding a job at [employer] right now and will be going to retirement where she staying right now. Phone call placed to retirement director. He will send someone to pick patient up. Patient is agreeable to go home. Patient looks hemodynamically stable. Reevaluation(s) Reevaluation #1: No change in patient's condition. Vital signs repeated and 132/78, heart rate 84, RR 16, O2 sat 97% on room air. Will send patient home. Awaiting for a ride Medical Decision Making ECG Data Attestation: I personally reviewed and interpreted this ECG as follows: Interpretation: EKG with normal sinus rhythm, ventricular rate 78, TN interval 0.14, QTC 419 Discharge Plan Discharge Clinical Impression: Drug overdose Qualifiers: Encounter type: initial encounter Injury intent: accidental or unintentional Qualified Code(s): T50.901A - Poisoning by unspecified drugs, medicaments and biological substances, accidental (unintentional), initial encounter Patient Disposition: Home, Self-Care Instructions: Narcotic Safety (ED) Additional Instructions: you were seen here today after smoking marijuana. You thought that marijuana was laced with fentanyl. You gave use of Narcan. When you came to emergency department you heart rate was normal. Your EKG was done and it was also normal. We monitored you for some time and you had no adverse symptoms. please follow-up with your primary care provider. Please avoid using marijuana or any other substances. Please return to emergency department if you will have any additional concerning symptoms. Prescriptions: No Action omeprazole 20 mg capsule,delayed release(DR/EC) 20 mg PO DAILY RF: 0 ondansetron 4 mg tablet,disintegrating 4 mg PO Q8H PRN (Reason: nausea and vomiting) Qty: 20 RF: 0 benzonatate [Tessalon Perles] 100 mg capsule 100 mg PO TID PRN (Reason: cough) Qty: 20 RF: 0 prednisone 20 mg tablet 40 mg PO DAILY Qty: 10 RF: 0 trazodone 50 mg Tablet 50 mg PO BEDTIME PRN (Reason: Insomnia) 30 Days Qty: 30 RF: 0 haloperidol 5 mg Tablet 5 mg PO BID PRN (Reason: psychosis) 30 Days Qty: 60 RF: 0 albuterol sulfate [ProAir HFA] 90 mcg/actuation HFA aerosol inhaler 2 puff inhalation Q6-8H PRN (Reason: Wheezing) RF: 0 acetaminophen 500 mg Tablet 650 mg PO Q6H PRN (Reason: Pain) RF: 0 nicotine 21 mg/24 hr Patch 24 Hour 1 patch TRANSDERMAL DAILY RF: 0 cetirizine 10 mg Tablet 10 mg PO DAILY RF: 0 fluticasone propionate 50 mcg/actuation spray,suspension 1 spray intranasal BID RF: 0 Flovent HFA 110 mcg/actuation HFA aerosol inhaler 2 puff inhalation BID RF: 0 zolpidem 12.5 mg tablet,ext release multiphase 1 tab PO BEDTIME RF: 0 benztropine 1 mg Tablet 1 mg PO BID RF: 0 buspirone 30 mg Tablet 30 mg PO BID RF: 0 docusate sodium [Colace] 100 mg capsule 100 mg PO BID RF: 0 prazosin 2 mg Capsule 2 mg PO BEDTIME RF: 0 quetiapine 100 mg Tablet 600 mg PO BEDTIME RF: 0 sulindac 200 mg Tablet 200 mg PO BID RF: 0 haloperidol decanoate [Haldol Decanoate] 100 mg/mL solution 100 mg IM Q OTHER DAY RF: 0 gabapentin 300 mg capsule 600 mg PO BID RF: 0 clonidine HCl 0.1 mg tablet 0.1 mg PO BID RF: 0 venlafaxine 150 mg Capsule,Extended Release 24hr 150 mg PO QAM RF: 0 venlafaxine 75 mg Tablet Extended Release 24hr 75 mg PO QAM RF: 0 diphenhydramine HCl [Benadryl] 50 mg Capsule 50 mg PO BEDTIME PRN (Reason: Insomnia) RF: 0 lorazepam 1 mg tablet 1 mg PO QID PRN (Reason: Anxiety/Restlessness ) RF: 0 cyclobenzaprine 5 mg Tablet 5 mg PO BEDTIME PRN (Reason: Muscle Spasm) RF: 0 albuterol sulfate [Ventolin HFA] 90 mcg/actuation HFA aerosol inhaler 2 puff inhalation Q4H PRN (Reason: wheezing) RF: 0 hydrocortisone acetate [Anusol-HC] 25 mg suppository 25 mg TN BID Qty: 12 RF: 0 prednisone 20 mg tablet 20 mg PO DAILY 4 Days Qty: 4 RF: 0 amoxicillin-pot clavulanate [Augmentin] 875-125 mg tablet 1 tab PO BID Qty: 14 RF: 0 Vraylar 3 mg capsule 1 cap PO DAILY RF: 0 (DME) leg brace Misc See Rx Instructions miscellaneous .MEDSUPPLY Qty: 1 RF: 0
--- NOTE | 2021-07-26 19:11 | ECG_ITS ---
Test Reason : SOB Blood Pressure : / mmHG Vent. Rate : 078 BPM Atrial Rate : 078 BPM P-R Int : 142 ms QRS Dur : 074 ms QT Int : 368 ms P-R-T Axes : 052 063 044 degrees QTc Int : 419 ms Normal sinus rhythm with sinus arrhythmia Normal ECG When compared with ECG of 19-FEB-2021 13:22, Nonspecific T wave abnormality no longer evident in Lateral leads Referred By: Esperanza Cabrera Electronically Signed By:Phillip Alex
[2021-07-26 20:03] VITALS: BP 132/78; PULSE 84; RESP 16; O2SAT 97
== END 2021-07-26 20:13 | disposition home or self-care (01) ==
PROVIDERS: Emergency Provider Emergency Medicine
DX: T50.901A Poisoning by unspecified drugs, medicaments and biological substances, accidental (unintentional), initial encounter (principal); R00.2 Palpitations; Y92.9 Unspecified place or not applicable; F25.1 Schizoaffective disorder, depressive type; F43.12 Post-traumatic stress disorder, chronic; Z91.51 Personal history of suicidal behavior; Z79.899 Other long term (current) drug therapy
CPT/HCPCS: 93005; 99283; 99284

== ENCOUNTER 2021-08-02 12:50 | Inpatient (IN) | payer OTHER, SELFPAY ==
--- NOTE | ~2021-08-02 | CT_ITS ---
EXAMINATION: CT HEAD WITHOUT CONTRAST CLINICAL INFORMATION: head banging to point of laceration COMPARISON: CT head 05/07/2021 TECHNIQUE: Contiguous axial imaging was performed from the skull base to vertex without intravenous administration of contrast. Coronal and sagittal reformatted images are performed at CT scanner This CT examination was performed using dose optimization techniques as appropriate, variously including the following: *Automated exposure control *Adjustment of mA and/or kV according to patient size (this includes techniques or standardized protocols for targeted exams where dose is matched to indication/reason for exam; i.e. extremities or head) *Use of iterative reconstruction technique DLP: 697 mGy-cm FINDINGS: No skull fracture. Small scalp hematoma in the frontal region at the midline. There is no evidence of acute intracranial hemorrhage or territorial infarction. No abnormal mass effect or midline shift is seen. Diaz to white matter differentiation is well preserved. No extra-axial fluid collections are identified. The ventricles are normal in size. There is no abnormal attenuation within the brain parenchyma. The mastoid air cells and visualized portions of the paranasal sinuses are well aerated. CT/CT head/brain wo con IMPRESSION: No acute intracranial pathology.
--- NOTE | 2021-08-02 12:57 | ED.PSYCH ---
HPI - Psych General Chief Complaint: Psychiatric Symptoms <JUANITO Collado Last Filed: 08/03/21 09:11> Stated Complaint: SECT 12,SI,L WRIST LAC 2 DAYS AGO <JUANITO Collado Last Filed: 08/03/21 09:11> Time Seen by Provider: 08/02/21 12:56 <JUANITO Collado Last Filed: 08/03/21 09:11> Source: patient and EMS <JUANITO Collado Last Filed: 08/03/21 09:11> Mode of arrival: EMS <JUANITO Collado Last Filed: 08/03/21 09:11> Limitations: no limitations <JUANITO Collado Last Filed: 08/03/21 09:11> History of Present Illness HPI Narrative: 36-year-old female with a history of PTSD, borderline personality disorder, depression currently getting ECT, GERD, self-injury who presents to the ER via EMS from a correction with suicidal ideation. She reportedly cut her left wrist 2 days ago. She last got ECT here on July 18, she has been getting it for 1 year. On arrival to the ED patient started banging her head against a wall while on the Behavioral pot. When staff approached her she was taking the wire out of the provided face mask in trying to car her arm with it. She got aggressive and agitated. She required physical restraints of all 4 extremities as well as intramuscular medications for her safety and the safety of staff. Additional history is not able to be obtained at this time. <JUANITO Collado Last Filed: 08/03/21 09:11> MD complaint: suicidal ideation and feels depressed <JUANITO Collado Last Filed: 08/03/21 09:11> Onset (ago): unknown <JUANITO Collado Last Filed: 08/03/21 09:11> Duration: constant <JUANITO Collado Last Filed: 08/03/21 09:11> History of same: Yes <JUANITO Collado Last Filed: 08/03/21 09:11> Relieving factors: none <JUANITO Collado Last Filed: 08/03/21 09:11> Exacerbating factors: none <JUANITO Collado - Last Filed: 08/03/21 09:11> Associated psychiatric symptoms: depression and suicidal ideation <JUANITO Collado Last Filed: 08/03/21 09:11> Associated symptoms: denies other symptoms <JUANITO Collado Last Filed: 08/03/21 09:11> Treatments prior to arrival: placed on mental health hold <JUANITO Collado Last Filed: 08/03/21 09:11> If self harm: admits thoughts of self harm and has plan <JUANITO Collado Last Filed: 08/03/21 09:11> Related Data Home Medications: Home Medications Medication Instructions Recorded Confirmed omeprazole 20 mg capsule,delayed 20 mg PO DAILY 11/29/20 08/02/21 release cetirizine 10 mg tablet 10 mg PO DAILY 12/24/20 08/02/21 albuterol sulfate 90 mcg/actuation 2 puff INHALATION Q4H PRN 03/30/21 08/02/21 aerosol inhaler (Ventolin HFA) diphenhydramine HCl 50 mg capsule 50 mg PO BEDTIME PRN 03/30/21 08/02/21 haloperidol decanoate 100 mg/mL 100 mg IM Q4W 03/30/21 08/02/21 intramuscular solution (Haldol Decanoate) lorazepam 1 mg tablet 1 mg PO TID PRN 03/30/21 08/02/21 prazosin 2 mg capsule 5 mg PO BEDTIME 03/30/21 08/02/21 cariprazine 3 mg capsule (Vraylar) 4.5 mg PO DAILY 07/18/21 08/02/21 ferrous sulfate 325 mg (65 mg 1 tab PO QAM 08/02/21 08/02/21 iron) tablet,delayed release fluticasone 250 mcg-salmeterol 50 1 puff INHALATION BID 08/02/21 08/02/21 mcg/dose blistr powdr for inhalation (Advair Diskus) lithium carbonate 300 mg 1 tab PO BID 08/02/21 08/02/21 tablet,extended release mirtazapine 15 mg tablet 1 tab PO BEDTIME 08/02/21 08/02/21 topiramate 25 mg tablet 1 tab PO BID 08/02/21 08/02/21 Previous Rx's Medication Instructions Recorded trazodone 50 mg tablet 50 mg PO BEDTIME PRN 30 Days #30 08/19/20 tab leg brace #1 ea 11/14/20 <JUANITO Collado - Last Filed: 08/03/21 09:11> Allergies/Adverse Reactions: Allergies Allergy/AdvReac Type Severity Reaction Status Date / Time carbamazepine [From TEGRETOL] AdvReac Unknown NAUSEA & Verified 06/01/21 20:14 VOMITING <JUANITO Collado - Last Filed: 08/03/21 09:11> Review of Systems Review of Systems: Yes Unobtainable due to mental status <JUANITO Collado - Last Filed: 08/03/21 09:11> [facility] Past Medical History Medical History: Medical History Acute post-traumatic stress disorder Adjustment disorder Anxiety Asthma Borderline personality disorder Chronic post-traumatic stress disorder (PTSD) COPD (chronic obstructive pulmonary disease) Depression GERD (gastroesophageal reflux disease) Increased BMI Injury, self-inflicted Intentional self-harm PTSD (post-traumatic stress disorder) Recurrent major depression-severe Schizoaffective disorder Self-harming behavior Suicidal ideation Suicidal ideation <JUANITO Collado - Last Filed: 08/03/21 09:11> Social History Social History: Social History Household Members: None Household Members Other:: correction Housing: House Do you presently have visiting nurse or other home services: Yes Alcohol intake: unknown Patient Tobacco Use Status: Current everyday Tobacco user Tobacco use type: Cigarette Cigarette Packs Per Day: 1 Cigarettes Per Day: 20.0 Years Smoked: 17 Second Hand Smoke Exposure: Yes Substance Use Type: Marijuana Advance Directives: No Advance Directives Information Provided: Yes Patient : No service: No Sexual orientation: did not discuss. <JUANITO Collado - Last Filed: 08/03/21 09:11> Physical Exam Vital Signs: Vital Signs: Last Vital Signs Temp 97.8 F 08/03/21 01:25 Pulse 67 08/03/21 01:25 Resp 17 08/03/21 01:25 BP 105/71 08/03/21 01:25 Pulse Ox 96 08/03/21 01:25 BMI result Body Mass Index 49.1 <JUANITO Collado - Last Filed: 08/03/21 09:11> Vital Signs: Last Vital Signs Temp 97.8 F 08/03/21 01:25 Pulse 67 08/03/21 01:25 Resp 17 08/03/21 01:25 BP 105/71 08/03/21 01:25 Pulse Ox 96 08/03/21 01:25 BMI result Body Mass Index 49.1 <JUANITO Melendrez - Last Filed: 08/02/21 18:34> Appearance: Agitated, eyes closed, restrained on the bed Eyes: Pupils equal, round and reactive to light. ENT: Pharynx normal. Neck: Normal inspection. Neck supple. CVS: Tachycardic, regular rhythm Pulses normal. Respiratory: mild respiratory distress with increased respiratory rate Breath sounds normal. Abdomen: Obese Soft and nontender. +BS x4 Skin: Skin warm and dry. Normal skin color. Normal skin turgor. No rashes. Extremities: No lower extremity edema. Minor trauma to bilateral UE Neuro: Agitated, uncooperative, unable to fully assess. <JUANITO Collado - Last Filed: 08/03/21 09:11> Course Course Course Narrative: -1900--ED care transferred to JUANITO Barnes pending labs and crisis consult <JUANITO Melendrez - Last Filed: 08/02/21 18:34> Reevaluation(s) Reevaluation #1: Physician observation started at 9am. Patient placed in physician observation because patient is awaiting inpatient psych admission. Seen by N overnight. At the time observation was started patient's vital signs were stable. Patient is alert and oriented. Neuro exam is non-focal. CV: RRR and lungs are clear. Will continue to monitor. <JUANITO Collado - Last Filed: 08/03/21 09:11> [facility] - Psych Lab Data Labs: Lab Results 08/02/21 08/02/21 08/02/21 Range/Units 13:44 13:48 13:48 Urine Color YELLOW Urine Appearance CLEAR Urine pH 6.0 (5.0-8.0) Ur Specific [place] 1.015 (1.005-1.025) Urine Protein NEG (NEG-TRACE) MG/DL Urine Glucose (UA) NEG (NEG) MG/DL Urine Ketones NEG (NEG) MG/DL Urine Blood NEG (NEG) Urine Nitrite NEG (NEG) Ur Leukocyte Esterase NEG (NEG) Urine Test (NEGATIVE) Urine Opiates Screen Not Detected (Not Detect) Urine Fentanyl Screen POSITIVE H (Not Detect) Ur Barbiturates Screen Not Detected (Not Detect) Ur Phencyclidine Scrn Not Detected (Not Detect) Ur Amphetamines Screen Not Detected (Not Detect) U Benzodiazepines Scrn Not Detected (Not Detect) Urine Cocaine Screen Not Detected (Not Detect) U Marijuana (THC) Screen POSITIVE H (Not Detect) COVID-19 (RAFAL) Negative (Negative) COVID-19 Clin Com See Note 08/02/21 Range/Units 13:48 Urine Color Urine Appearance Urine pH (5.0-8.0) Ur Specific [place] (1.005-1.025) Urine Protein (NEG-TRACE) MG/DL Urine Glucose (UA) (NEG) MG/DL Urine Ketones (NEG) MG/DL Urine Blood (NEG) Urine Nitrite (NEG) Ur Leukocyte Esterase (NEG) Urine Test NEGATIVE (NEGATIVE) Urine Opiates Screen (Not Detect) Urine Fentanyl Screen (Not Detect) Ur Barbiturates Screen (Not Detect) Ur Phencyclidine Scrn (Not Detect) Ur Amphetamines Screen (Not Detect) U Benzodiazepines Scrn (Not Detect) Urine Cocaine Screen (Not Detect) U Marijuana (THC) Screen (Not Detect) COVID-19 (RAFAL) (Negative) COVID-19 Clin Com <JUANITO Collado - Last Filed: 08/03/21 09:11> Lab Results 08/02/21 08/02/21 08/02/21 Range/Units 13:44 13:48 13:48 Urine Color YELLOW Urine Appearance CLEAR Urine pH 6.0 (5.0-8.0) Ur Specific [place] 1.015 (1.005-1.025) Urine Protein NEG (NEG-TRACE) MG/DL Urine Glucose (UA) NEG (NEG) MG/DL Urine Ketones NEG (NEG) MG/DL Urine Blood NEG (NEG) Urine Nitrite NEG (NEG) Ur Leukocyte Esterase NEG (NEG) Urine Test (NEGATIVE) Urine Opiates Screen Not Detected (Not Detect) Urine Fentanyl Screen POSITIVE H (Not Detect) Ur Barbiturates Screen Not Detected (Not Detect) Ur Phencyclidine Scrn Not Detected (Not Detect) Ur Amphetamines Screen Not Detected (Not Detect) U Benzodiazepines Scrn Not Detected (Not Detect) Urine Cocaine Screen Not Detected (Not Detect) U Marijuana (THC) Screen POSITIVE H (Not Detect) COVID-19 (RAFAL) Negative (Negative) [facility] Clin Com See Note 08/02/21 Range/Units 13:48 Urine Color Urine Appearance Urine pH (5.0-8.0) Ur Specific [place] (1.005-1.025) Urine Protein (NEG-TRACE) MG/DL Urine Glucose (UA) (NEG) MG/DL Urine Ketones (NEG) MG/DL Urine Blood (NEG) Urine Nitrite (NEG) Ur Leukocyte Esterase (NEG) Urine Test NEGATIVE (NEGATIVE) Urine Opiates Screen (Not Detect) Urine Fentanyl Screen (Not Detect) Ur Barbiturates Screen (Not Detect) Ur Phencyclidine Scrn (Not Detect) Ur Amphetamines Screen (Not Detect) U Benzodiazepines Scrn (Not Detect) Urine Cocaine Screen (Not Detect) U Marijuana (THC) Screen (Not Detect) COVID-19 (RAFAL) (Negative) COVID-19 [employer] Com <JUANITO Melendrez - Last Filed: 08/02/21 18:34> Discharge Plan Discharge Clinical Impression: Recurrent major depression-severe, Suicidal ideation <JUANITO Collado - Last Filed: 08/03/21 09:11> Patient Disposition: Still a Patient <JUANITO Collado - Last Filed: 08/03/21 09:11> Prescriptions: No Action omeprazole 20 mg capsule,delayed release(DR/EC) 20 mg PO DAILY RF: 0 trazodone 50 mg Tablet 50 mg PO BEDTIME PRN (Reason: Insomnia) 30 Days Qty: 30 RF: 0 cetirizine 10 mg Tablet 10 mg PO DAILY RF: 0 prazosin 2 mg Capsule 5 mg PO BEDTIME RF: 0 haloperidol decanoate [Haldol Decanoate] 100 mg/mL solution 100 mg IM Q4W RF: 0 diphenhydramine HCl [Benadryl] 50 mg Capsule 50 mg PO BEDTIME PRN (Reason: Insomnia) RF: 0 lorazepam 1 mg tablet 1 mg PO TID PRN (Reason: Anxiety/Restlessness ) RF: 0 albuterol sulfate [Ventolin HFA] 90 mcg/actuation HFA aerosol inhaler 2 puff inhalation Q4H PRN (Reason: wheezing) RF: 0 topiramate 25 mg tablet 1 tab PO BID RF: 0 mirtazapine 15 mg tablet 1 tab PO BEDTIME RF: 0 lithium carbonate 300 mg tablet extended release 1 tab PO BID RF: 0 fluticasone propion-salmeterol [Advair Diskus] 250-50 mcg/dose blister with device 1 puff inhalation BID RF: 0 ferrous sulfate 325 mg (65 mg iron) tablet,delayed release (DR/EC) 1 tab PO QAM RF: 0 Vraylar 3 mg capsule 4.5 mg PO DAILY RF: 0 (DME) leg brace Misc See Rx Instructions miscellaneous .MEDSUPPLY Qty: 1 RF: 0 <JUANITO Collado - Last Filed: 08/03/21 09:11>
[2021-08-02] MEDS: LORazepam 2 MG/ML VIAL IM (13:07)
[2021-08-02] MEDS: Haloperidol Lactate 5 MG/ML VIAL IM (13:07)
[2021-08-02 13:26] VITALS: BP 103/65; BP 128/80; PULSE 80; PULSE 97; RESP 18; TEMP 36.6; O2SAT 96; O2SAT 98; BMI 49.1
--- NOTE | 2021-08-02 13:50 | PC.NURSE ---
continued triage while client in restraint with permission of client. client stated she last smoked marijuana today, no etoh use. states she felt she missed a med dose recently. states shes hearing voices and at first states she doesnt know what to do when she hears them but then states she can enjoy music or a medeication when this happens.
[2021-08-02 14:03] LABS: Appearance Urine CLEAR; Color Urine YELLOW; Glucose Urine UA NEG (NEG); Leukocyte Esterase Urine NEG (NEG); Nitrite Urine NEG (NEG); Specific Gravity - Urine 1.015 (1.005-1.025); Urine Blood NEG (NEG); Urine Ketones NEG (NEG); Urine Protein NEG (NEG-TRACE)
[2021-08-02 14:05] LABS: UPreg QC Valid YES; Urine Pregnancy NEGATIVE (NEGATIVE)
[2021-08-02 14:16] LABS: COVID-19 Test Negative (Negative)
--- NOTE | 2021-08-02 18:41 | PC.NURSE ---
patients referred to [facility]
--- NOTE | 2021-08-02 20:12 | MHC.CARE ---
Pt was evaluated by [facility] at her shelter prior to arriving to the ED and is a Section 12a bedsearch for inpt psychiatric placement.
[2021-08-02 22:30] LABS: Amphetamine Screen Urine Not Detected (Not Detect); Barbiturates, Urine Not Detected (Not Detect); Benzodiazepines Screen Urine Not Detected (Not Detect); Cannabinoid Screen Urine POSITIVE (Not Detect); Cocaine Screen Urine Not Detected (Not Detect); Fentanyl, urine POSITIVE (Not Detect); Opiate Screen Urine Not Detected (Not Detect); Phencyclidine Screen Urine Not Detected (Not Detect)
[2021-08-03] MEDS: LORazepam 1 MG TABLET PO ×3 (00:42→16:53)
[2021-08-03] MEDS: diphenhydrAMINE HCL 25 MG TABLET 50 MG PO ×2 (00:42→20:56)
[2021-08-03] MEDS: Lithium Carbonate ER 300 MG TABLET.ER PO ×3 (00:43→20:56)
[2021-08-03] MEDS: Topiramate 25 MG TABLET PO ×3 (00:43→20:56)
[2021-08-03] MEDS: Mirtazapine 15 MG TABLET PO ×2 (00:43→20:59)
[2021-08-03] MEDS: Ferrous Sulfate 324 MG TABLET.DR PO ×2 (00:43→10:25)
[2021-08-03] MEDS: traZODone HCL 50 MG TABLET PO ×2 (00:43→20:56)
[2021-08-03] MEDS: Albuterol Sulfate 90 MCG 8 GM INHALER 2 PUFF INHALE (00:43)
[2021-08-03 00:44] VITALS: BP 105/71; PULSE 67
[2021-08-03] MEDS: Prazosin HCL 1 MG CAPSULE 5 MG PO ×2 (00:44→20:56)
[2021-08-03 01:25] VITALS: BP 105/71; PULSE 67; RESP 17; TEMP 36.6; O2SAT 96
--- NOTE | 2021-08-03 06:12 | PC.NURSE ---
Patient slept through the night, no distress observed/reported, medication complaint, patient is observed on 1:1 for safety, mood depressed, patient is on section 12 inpatient bed search per N, VSS, will continue to monitor.
--- NOTE | 2021-08-03 06:57 | PC.NURSE ---
patient appears to remain at rest at present respirations are even and unlabored, patient appears in no distress
[2021-08-03] MEDS: Cariprazine HCl 1.5 MG CAPSULE 4.5 MG PO (10:25)
[2021-08-03] MEDS: Omeprazole 20 MG CAPSULE.DR PO (10:25)
[2021-08-03] MEDS: Loratadine 10 MG TABLET PO (10:25)
[2021-08-03 11:03] LABS: MANUAL DIFF FLAG NO
[2021-08-03 11:04] LABS: Basophils Percent Auto 0.3 % (0-2); Eosinophils Percent Auto 0.6 % (0-4); Hematocrit 37.6 % (37.0-47.0); Hemoglobin 11.4 g/dl (12.0-16.0); Imm Gran Abs Auto 0.01 X10*3/uL (0.00-0.03); Imm Gran Pct Auto 0.1 % (0.0-0.4); Lymphocytes Absolute Auto 2.4 X10*3/uL (1.2-4.9); Lymphocytes Percent Auto 35.4 % (20-40); Mean Corpuscular HGB Conc 30.3 g/dl (31.0-35.0); Mean Corpuscular Hemoglobin 25.5 pg (27.0-33.0); Mean Corpuscular Volume 84.1 fL (80.0-98.0); Mean Platelet Volume 10.8 fL (9.4-12.3); Monocytes Absolute Auto 0.4 X10*3/uL (0.1-1.2); Monocytes Percent Auto 5.5 % (2-11); Neutrophils Percent Auto 58.1 % (45-73); Platelet Count 326 X10*3/uL (160-400); Red Blood Count 4.47 X10*6/uL (4.20-5.50); White Blood Count 6.9 X10*3/uL (4.8-10.8)
[2021-08-03 11:18] LABS: Lithium 0.29 mmol/L (0.60-1.20)
[2021-08-03 11:19] LABS: Ethanol < 10 mg/dL
[2021-08-03 11:21] LABS: Alanine Aminotransferase 15 U/L (0-31); Albumin Level 3.8 g/dL (3.5-5.0); Alkaline Phosphatase 60 U/L (39-117); Anion Gap 10 (12-20); Aspartate Amino Transferase 15 U/L (5-31); Bilirubin Direct 0.2 mg/dL (0.0-0.5); Bilirubin Total 0.4 mg/dL (0.0-1.0); Blood Urea Nitrogen 10 mg/dL (9-16); Calcium 9.3 mg/dL (8.4-10.2); Carbon Dioxide 24 mmol/L (22-29); Chloride 110 mmol/L (96-108); Creatinine Clr Calc Pharmacy 120.6; Estimated Glomerular Filt Rate > 60; Glucose Random 106 mg/dL (60-115); Potassium 4.4 mmol/L (3.3-5.1); Sodium 140 mmol/L (135-145); Total Protein 6.2 g/dL (6.5-8.0)
--- NOTE | 2021-08-03 12:25 | PC.NURSE ---
about 1130 patient got up used restroom, expressed to t/w she wanted to talk thelma [facility] seemingly to be reassessed to go back to shelter, about 40 minutes after was banging feet on bed frame periodically, maintained on 1:1 obs. patient receptive to prn ativan , was given PO
--- NOTE | 2021-08-03 14:31 | MHC.CARE ---
CARE Team offered Pt coping skill activities which Pt declined.
--- NOTE | 2021-08-03 17:44 | PC.NURSE ---
patient awoke and asked to be reviewed by n to go home. t/w had forgotten that she had been reviewed prior in the day. care team was told. patient stated that 8am was too early to be awakened and reviewed. patient presently calling hotline number to express her displeasure.
[2021-08-03 20:56] VITALS: BP 163/75; PULSE 102
--- NOTE | 2021-08-04 06:00 | PC.NURSE ---
Patient slept most part of the night, even when awake and restless was placed one to one for observation, patient contracted for the safety, medication compliant, behavior appropriate, disposition per [facility] is section 12 inpatient bed search, will continue to monitor.
[2021-08-04] MEDS: LORazepam 1 MG TABLET PO ×3 (07:12→20:12)
--- NOTE | 2021-08-04 07:15 | PC.NURSE ---
pt restless upon awaking, alicia lopez at bedside, given prn meds am. offered breakfast tray pt declined. cooperative at this time.
[2021-08-04] MEDS: Loratadine 10 MG TABLET PO (08:21)
[2021-08-04] MEDS: Topiramate 25 MG TABLET PO ×2 (08:21→20:12)
[2021-08-04] MEDS: Omeprazole 20 MG CAPSULE.DR PO (08:21)
[2021-08-04] MEDS: Ferrous Sulfate 324 MG TABLET.DR PO (08:21)
[2021-08-04] MEDS: Lithium Carbonate ER 300 MG TABLET.ER PO ×2 (08:21→20:12)
[2021-08-04] MEDS: Albuterol Sulfate 90 MCG 8 GM INHALER 2 PUFF INHALE (08:22)
--- NOTE | 2021-08-04 08:29 | PC.NURSE ---
in behavioral control,took meds whole with water. laying on strecher watching tv resting. cooperative at this time.
[2021-08-04] MEDS: Cariprazine HCl 1.5 MG CAPSULE 4.5 MG PO (08:36)
[2021-08-04] MEDS: Fluticasone/Vilanterol 100/25 BLST.W.DEV 1 PUFF INHALE (08:39)
--- NOTE | 2021-08-04 09:13 | PC.NURSE ---
patient is sleeping on stretcher, even unlabored rr.
--- NOTE | 2021-08-04 09:57 | PC.NURSE ---
pt tapping forehead with fists, verbally redirected. sitter is at bedside,
--- NOTE | 2021-08-04 10:40 | PC.NURSE ---
pt seated in recliner watching tv in common space.
--- NOTE | 2021-08-04 10:49 | PC.NURSE ---
pt reporting feeling anxious, makes statesments about wanting to self harm, verbally directed. offered alternatives including music, snacks, drawing.
[2021-08-04 13:35] VITALS: BP 133/75; PULSE 91; RESP 20; TEMP 37.3; O2SAT 99
[2021-08-04] MEDS: Acetaminophen 325 MG TABLET 650 MG PO (14:51)
[2021-08-04 16:14] VITALS: PULSE 80; RESP 18
[2021-08-04 17:45] VITALS: BP 127/91; PULSE 84; RESP 16; TEMP 36.7; O2SAT 98
[2021-08-04] MEDS: DULoxetine HCl 60 MG CAPSULE.DR PO (18:12)
[2021-08-04 18:40] VITALS: BP 127/91; PULSE 84; RESP 16; TEMP 36.6
--- NOTE | 2021-08-04 19:08 | PC.ADMIT ---
36-year-old female with a history of PTSD, borderline personality disorder, depression currently getting ECT, GERD, self-injury arrives on this unit at 17:41 via wheelchair from [facility]. PT was admitted on a conditional voluntary basis for SI with gesture (cutting wrists). COVID negative, toxic screen + marijuana and + fentanyl. PT assigned 1:1 due to high risk for self harm. PT has multiple somatic complaints that have been relayed to provider. NO SI/HI, AH/VH at this time.
--- NOTE | 2021-08-04 19:37 | PC.NURSE ---
Admission completed. PT present with multiple somatic complaints, including lower right abdominal pain due to hernia, right ear pain, inability to move bowels and little appetite x 1 week. Provider (Chacha Moraes) made aware.
[2021-08-04] MEDS: Mirtazapine 15 MG TABLET PO (20:12)
[2021-08-04] MEDS: Prazosin HCL 1 MG CAPSULE 5 MG PO (20:12)
[2021-08-04] MEDS: traZODone HCL 50 MG TABLET PO (20:13)
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
[2021-08-05 07:10] VITALS: BP 121/83; PULSE 79; RESP 16; TEMP 37.1; O2SAT 96
[2021-08-05] MEDS: Acetaminophen 325 MG TABLET 650 MG PO (07:35)
[2021-08-05] MEDS: Lithium Carbonate ER 450 MG TABLET.ER PO (08:35)
[2021-08-05] MEDS: DULoxetine HCl 60 MG CAPSULE.DR PO (08:35)
[2021-08-05] MEDS: Ferrous Sulfate 324 MG TABLET.DR PO (08:35)
[2021-08-05] MEDS: Loratadine 10 MG TABLET PO (08:35)
[2021-08-05] MEDS: Fluticasone/Vilanterol 100/25 BLST.W.DEV 1 PUFF INHALE (08:35)
[2021-08-05] MEDS: Cariprazine HCl 1.5 MG CAPSULE 4.5 MG PO (08:35)
[2021-08-05] MEDS: Topiramate 25 MG TABLET PO (08:35)
[2021-08-05] MEDS: Omeprazole 20 MG CAPSULE.DR PO (08:36)
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
[2021-08-05] MEDS: Carbamide Peroxide 6.5% Otic 15 ML DRPBTL 5 DROP EAR-RIGHT ×2 (16:40→22:22)
[2021-08-05] MEDS: HaloperidoL 5 MG TABLET PO (16:41)
[2021-08-05] MEDS: LORazepam 1 MG TABLET PO (16:41)
[2021-08-05 20:35] VITALS: BP 108/85; PULSE 88; TEMP 36.7
[2021-08-05] MEDS: Mirtazapine 15 MG TABLET PO (20:53)
[2021-08-05] MEDS: traZODone HCL 50 MG TABLET PO (20:53)
[2021-08-05 20:54] VITALS: BP 108/85; PULSE 88
[2021-08-05] MEDS: Prazosin HCL 1 MG CAPSULE 5 MG PO (20:54)
[2021-08-05] MEDS: hydrOXYzine HCL 25 MG TABLET PO (20:54)
[2021-08-06] VITALS (13 sets, daily range): BP systolic 88–154; BP diastolic 45–91; PULSE 62–105; RESP 16–20; TEMP 36.3–36.8; O2SAT 92–98
[2021-08-06] MEDS: Albuterol Sulfate (0.083%) 2.5 MG/3 ML VIAL.NEB INHALE (07:52)
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
--- NOTE | 2021-08-06 08:25 | P.PCN_ITS ---
ECT Procedure Note Diagnosis/Treatment Date of Service: 08/06/21 Diagnosis: Major Depressive Disorder and Other (PTSD borderline personality disorder) Previous ECT Date: 07/18/21 Current Treatment Number: 1 Treatment: Series Interval Clinical Notes: Overall patient states that she feels ECT is been quite stabilizing for her with much decrease in the way of hospitalizations self- harming behavior able to work in generally more stable. Cognitively intact alert intact executive functioning referred for further ECT by Dr. Hernández patient strongly feels ECT helpful. We have discussed the role that ECT can help in with the biology psychiatric illness and the patient has roll and managing strategies to deal with her triggers and symptoms. This is a difficult time of the year for her. ECT Settings Device: THYMATRON DGx Electrode Placement: Bitemporal Program/Pulse Width: 0.50 Energy Percent: 100 Seizure Duration By EEG (in seconds): 28 Medications Administration General Anesthetic: Etomidate (18) Muscle Relaxant: Succinylcholine (100) Ancillary Medications Analgesics: Torodol - Pre ECT Anti-emetics: Zofran - Pre ECT Miscillaneous Medications: Propofol (30) Airway Management Airway Management: Bag Mask Ventilation Treatment Recommendations No Changes Recommended: No change Pt Tolerated Procedure w/o Issue: Yes
--- NOTE | 2021-08-06 08:25 | MHC.SHP ---
Pre-Procedural Eval Section A Date of Service: 08/06/21 The patient is an INPATIENT: Yes Changes since office visit: Yes New Medical Problems and Yes Patient answered all questions; No Cold of Flu in the past 2 weeks and No Changes in Medication The History & Physical has been completed within 30 days and I have reviewed it.: Yes Section B Chief Complaint: SI,Sib Allergies: Allergies Allergy/AdvReac Type Severity Reaction Status Date / Time carbamazepine [From TEGRETOL] AdvReac Unknown NAUSEA & Verified 06/01/21 20:14 VOMITING Plan I have reviewed the history and physical and performed a pertinent physical examination on my patient. No changes have occurred unless specified.
[2021-08-06 08:50] LABS: Cholesterol 169 mg/dL; HDL Cholesterol 47 mg/dL; LDL Cholesterol Calculated 102 mg/dl; Magnesium 1.9 mg/dL (1.6-2.6); Triglycerides 100 mg/dL
[2021-08-06 09:14] LABS: Free T4 (Free Thyroxine) 1.04 ng/dL (0.71-1.85); Thyroid Stimulating Hormone 2.75 uIU/mL (0.32-4.0)
[2021-08-06 09:31] LABS: Vitamin B12 337 pg/mL (200-900)
[2021-08-06 09:44] LABS: Estimated Average Glucose 103 mg/dL; Hemoglobin A1c % 5.2 %
[2021-08-06] MEDS: Loratadine 10 MG TABLET PO (09:56)
[2021-08-06] MEDS: Lithium Carbonate ER 450 MG TABLET.ER PO ×2 (09:56→23:02)
[2021-08-06] MEDS: Cariprazine HCl 1.5 MG CAPSULE 4.5 MG PO (09:56)
[2021-08-06] MEDS: Topiramate 25 MG TABLET PO ×2 (09:56→23:02)
[2021-08-06] MEDS: Omeprazole 20 MG CAPSULE.DR PO (09:56)
[2021-08-06] MEDS: DULoxetine HCl 60 MG CAPSULE.DR PO (09:56)
[2021-08-06] MEDS: Ferrous Sulfate 324 MG TABLET.DR PO (09:56)
[2021-08-06] MEDS: Carbamide Peroxide 6.5% Otic 15 ML DRPBTL 5 DROP EAR-RIGHT ×2 (10:01→23:12)
[2021-08-06] MEDS: Fluticasone/Vilanterol 100/25 BLST.W.DEV 1 PUFF INHALE (10:01)
[2021-08-06] MEDS: HaloperidoL 5 MG TABLET PO ×2 (14:40→19:12)
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
[2021-08-06] MEDS: Acetaminophen 325 MG TABLET 650 MG PO (16:00)
[2021-08-06] MEDS: OLANZapine 10 MG VIAL IM (20:45)
[2021-08-06] MEDS: Mirtazapine 15 MG TABLET PO (23:02)
[2021-08-06] MEDS: Prazosin HCL 1 MG CAPSULE 5 MG PO (23:29)
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
--- NOTE | 2021-08-07 03:09 | PC.NURSE ---
Patient is ambulating about the unit with 1:1 at side. Patient spends time with another peer in kitchen talking very loudly about their dislike for specific staff. This behavior goes on for about an hour. Multiple staff members attempt to redirect patients during this time, but the behavior continues growing in intensity and volume becoming disruptive to other patients on the unit. This typewriter ribbon winder approaches patient in hallway as she is yelling loudly about her dislike for staff, this typewriter ribbon winder attempts to have patient talk directly with her 1:1 in a quiet room to process her thoughts. Patient escalates yelling louder and louder. She begins to punch shepherd on the unit. Staff attempt to redirect patient but she takes off running down hallway at a very fast pace and runs into her room. Staff members run after her. Upon entering the patient's room, she is noted to be laying on her stomach slamming her head into the wall very hard. MHAs, PCs, and This typewriter ribbon winder physically hold patient to prevent her from continued head banging. Blood is noted on sheets and pillows. Staff stay with patient until Security arrives to take over. This typewriter ribbon winder leaves patient room and contacts covering provider Chacha Moraes for Medication Restraint. 10mg IM Olanzapine is ordered and prepared. Medication is brought into the room and patient requests another RN administer medication as she blames this typewriter ribbon winder directly for causing her to hurt herself. approx. 1 inch. bleeding laceration is noted to patient's forehead. Nursing Supervisors Afua and Lauryn are present on the unit at this time. Nursing Compact Assembler, Lauryn administers the Medication and cleans patient's laceration. Patient is moved to room 505 with 1:1 where bed is away from wall. Vitals are assessed. Head CT orders are entered by provider and patient is escorted to Head CT by staff and security without incident. Patient returns back to room, resting comfortably in bed.
--- NOTE | 2021-08-07 03:23 | P.EN_ITS ---
Event Note Date of Service: 08/07/21 Event Note: Agitation: Patient had an episode of agitation earlier in the [employer] [facility] RN called me for [id number] evaluation around 3:00 a.m.. Patient denied any complaints. Evaluation form filled.
--- NOTE | 2021-08-07 03:23 | PM.EVENT ---
Event Note Date of Service: 08/07/21 Event Note: Agitation: Patient had an episode of agitation earlier in the night. RN called me for [id number] evaluation around 3:00 a.m.. Patient denied any complaints. Evaluation form filled.
[2021-08-07 06:00] VITALS: BP 115/65; PULSE 71; RESP 14; TEMP 36.5; O2SAT 95
[2021-08-07] MEDS: Fluticasone/Vilanterol 100/25 BLST.W.DEV 1 PUFF INHALE (09:10)
[2021-08-07] MEDS: Ferrous Sulfate 324 MG TABLET.DR PO (09:16)
[2021-08-07] MEDS: DULoxetine HCl 60 MG CAPSULE.DR PO (09:16)
[2021-08-07] MEDS: Cariprazine HCl 1.5 MG CAPSULE 4.5 MG PO (09:16)
[2021-08-07] MEDS: Loratadine 10 MG TABLET PO (09:16)
[2021-08-07] MEDS: Lithium Carbonate ER 450 MG TABLET.ER PO ×2 (09:16→20:09)
[2021-08-07] MEDS: Omeprazole 20 MG CAPSULE.DR PO (09:16)
[2021-08-07] MEDS: Topiramate 25 MG TABLET PO ×2 (09:16→20:10)
[2021-08-07] MEDS: Carbamide Peroxide 6.5% Otic 15 ML DRPBTL 5 DROP EAR-RIGHT (09:19)
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
[2021-08-07 11:13] VITALS: BMI 45.2
[2021-08-07 18:00] VITALS: BP 136/73; PULSE 86; RESP 16; TEMP 36.1
[2021-08-07] MEDS: Prazosin HCL 1 MG CAPSULE 5 MG PO (20:09)
[2021-08-07] MEDS: Mirtazapine 15 MG TABLET PO (20:27)
[2021-08-07] MEDS: LORazepam 1 MG TABLET PO (21:51)
[2021-08-07] MEDS: diphenhydrAMINE HCL 25 MG TABLET 50 MG PO (23:48)
[2021-08-08] MEDS: traZODone HCL 50 MG TABLET PO (03:05)
[2021-08-08] MEDS: HaloperidoL 5 MG TABLET PO ×3 (03:05→20:04)
[2021-08-08] MEDS: LORazepam 2 MG/ML VIAL IM (04:46)
[2021-08-08 04:48] VITALS: BP 123/84; PULSE 82; RESP 16; TEMP 36.4; O2SAT 98
[2021-08-08] MEDS: Cariprazine HCl 1.5 MG CAPSULE 4.5 MG PO (08:05)
[2021-08-08] MEDS: Fluticasone/Vilanterol 100/25 BLST.W.DEV 1 PUFF INHALE (08:05)
[2021-08-08] MEDS: Loratadine 10 MG TABLET PO (08:06)
[2021-08-08] MEDS: Lithium Carbonate ER 450 MG TABLET.ER PO ×2 (08:06→20:04)
[2021-08-08] MEDS: DULoxetine HCl 60 MG CAPSULE.DR PO (08:06)
[2021-08-08] MEDS: Omeprazole 20 MG CAPSULE.DR PO (08:06)
[2021-08-08] MEDS: Ferrous Sulfate 324 MG TABLET.DR PO (08:06)
[2021-08-08] MEDS: Topiramate 25 MG TABLET PO ×2 (08:06→20:04)
[2021-08-08 10:44] VITALS: BP 137/89; PULSE 97
[2021-08-08] MEDS: cloNIDine HCL 0.1 MG TABLET PO ×2 (10:44→20:05)
[2021-08-08] MEDS: LORazepam 1 MG TABLET PO ×2 (10:44→20:02)
[2021-08-08] MEDS: buPROPion HCl XL 150 MG TAB.ER.24H PO (11:45)
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
[2021-08-08 18:00] VITALS: BP 112/71; PULSE 93
[2021-08-08 20:02] VITALS: BP 122/76; PULSE 86
[2021-08-08] MEDS: Prazosin HCL 1 MG CAPSULE 5 MG PO (20:02)
[2021-08-08] MEDS: Mirtazapine 15 MG TABLET PO (20:04)
[2021-08-08] MEDS: Acetaminophen 325 MG TABLET 650 MG PO (21:05)
[2021-08-09] MEDS: Cariprazine HCl 1.5 MG CAPSULE 4.5 MG PO (08:30)
[2021-08-09] MEDS: buPROPion HCl XL 150 MG TAB.ER.24H PO (08:33)
[2021-08-09] MEDS: Loratadine 10 MG TABLET PO (08:33)
[2021-08-09] MEDS: DULoxetine HCl 60 MG CAPSULE.DR PO (08:33)
[2021-08-09] MEDS: Lithium Carbonate ER 450 MG TABLET.ER PO ×2 (08:34→20:12)
[2021-08-09] MEDS: Ferrous Sulfate 324 MG TABLET.DR PO (08:34)
[2021-08-09] MEDS: Omeprazole 20 MG CAPSULE.DR PO (08:35)
[2021-08-09] MEDS: Fluticasone/Vilanterol 100/25 BLST.W.DEV 1 PUFF INHALE (08:35)
[2021-08-09] MEDS: Topiramate 25 MG TABLET PO ×2 (08:39→20:11)
[2021-08-09 08:59] VITALS: BP 124/55; PULSE 95; RESP 18; TEMP 36.4; O2SAT 98
[2021-08-09 09:45] LABS: Lithium 0.51 mmol/L (0.60-1.20)
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
[2021-08-09 13:08] VITALS: BP 146/93; PULSE 93
[2021-08-09] MEDS: cloNIDine HCL 0.1 MG TABLET PO ×2 (13:08→20:10)
[2021-08-09] MEDS: LORazepam 1 MG TABLET PO (16:56)
[2021-08-09] MEDS: HaloperidoL 5 MG TABLET PO (17:17)
[2021-08-09] MEDS: hydrOXYzine HCL 25 MG TABLET PO (17:17)
--- NOTE | 2021-08-09 17:21 | PC.NURSE ---
Pt head banging approx 500pm. Given Hadol anf Atarax prn meds. Resting with JUDY Reyes.
[2021-08-09] MEDS: Acetaminophen 325 MG TABLET 650 MG PO (18:43)
[2021-08-09 19:35] VITALS: BP 142/75; PULSE 88; TEMP 37; O2SAT 99
[2021-08-09 20:10] VITALS: BP 142/75; PULSE 88
[2021-08-09] MEDS: Mirtazapine 15 MG TABLET PO (20:11)
[2021-08-09 20:12] VITALS: BP 142/74; PULSE 88
[2021-08-09] MEDS: Prazosin HCL 1 MG CAPSULE 5 MG PO (20:12)
[2021-08-09] MEDS: OLANZapine 10 MG VIAL IM (21:03)
[2021-08-10] MEDS: LORazepam 1 MG TABLET PO ×3 (03:19→16:26)
[2021-08-10] MEDS: HaloperidoL 5 MG TABLET PO ×2 (05:16→16:26)
[2021-08-10 06:00] VITALS: BP 140/90; PULSE 95; RESP 18; TEMP 36.7; O2SAT 97
[2021-08-10] MEDS: Fluticasone/Vilanterol 100/25 BLST.W.DEV 1 PUFF INHALE (08:42)
[2021-08-10] MEDS: Topiramate 25 MG TABLET PO ×2 (08:43→22:02)
[2021-08-10] MEDS: DULoxetine HCl 60 MG CAPSULE.DR PO (08:43)
[2021-08-10] MEDS: Cariprazine HCl 1.5 MG CAPSULE 4.5 MG PO (08:43)
[2021-08-10] MEDS: Lithium Carbonate ER 450 MG TABLET.ER PO ×2 (08:43→22:01)
[2021-08-10] MEDS: Omeprazole 20 MG CAPSULE.DR PO (08:43)
[2021-08-10] MEDS: Ferrous Sulfate 324 MG TABLET.DR PO (08:43)
[2021-08-10] MEDS: buPROPion HCl XL 150 MG TAB.ER.24H PO (08:43)
[2021-08-10] MEDS: Loratadine 10 MG TABLET PO (08:43)
[2021-08-10] MEDS: OLANZapine 5 MG TABLET PO ×2 (10:29→16:25)
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
[2021-08-10 18:00] VITALS: BP 111/75; PULSE 86
[2021-08-10] MEDS: Acetaminophen 325 MG TABLET 650 MG PO (18:39)
[2021-08-10 21:59] VITALS: BP 110/68; PULSE 69
[2021-08-10] MEDS: Prazosin HCL 1 MG CAPSULE 5 MG PO (21:59)
[2021-08-10] MEDS: OLANZapine 10 MG TABLET PO (22:01)
[2021-08-10] MEDS: Mirtazapine 15 MG TABLET PO (22:01)
[2021-08-11] VITALS (9 sets, daily range): BP systolic 109–143; BP diastolic 64–89; PULSE 64–94; RESP 16–20; TEMP 36.4–36.5; O2SAT 93–98
--- NOTE | 2021-08-11 08:17 | MHC.SHP ---
Pre-Procedural Eval Section A Date of Service: 08/11/21 The patient is an INPATIENT: Yes Changes since office visit: No Cold of Flu in the past 2 weeks, No New Medical Problems, No Changes in Medication and No Patient answered all questions The History & Physical has been completed within 30 days and I have reviewed it.: Yes Section B Chief Complaint: SI,Sib Allergies: Allergies Allergy/AdvReac Type Severity Reaction Status Date / Time carbamazepine [From TEGRETOL] AdvReac Unknown NAUSEA & Verified 06/01/21 20:14 VOMITING Plan I have reviewed the history and physical and performed a pertinent physical examination on my patient. No changes have occurred unless specified.
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
--- NOTE | 2021-08-11 08:30 | HO.ECTPROC ---
ECT Procedure Note Diagnosis/Treatment Date of Service: 08/11/21 Previous ECT Date: 08/06/21 Current Treatment Number: 2 Treatment: Series Interval Clinical Notes: The patient reported improvement of dysphoria with ECT. ECT Settings Device: THYMATRON DGx Electrode Placement: Bitemporal Program/Pulse Width: 0.50 Energy Percent: 100 Seizure Duration By EEG (in seconds): 23 By Motor Observation (in seconds): 0 Medications Administration General Anesthetic: Etomidate (18) Muscle Relaxant: Succinylcholine (100) Ancillary Medications Analgesics: Torodol - Pre ECT Anti-emetics: Zofran - Pre ECT Miscillaneous Medications: Propofol (30) Airway Management Airway Management: Bag Mask Ventilation Treatment Recommendations No Changes Recommended: No change
[2021-08-11] MEDS: Omeprazole 20 MG CAPSULE.DR PO (10:02)
[2021-08-11] MEDS: Lithium Carbonate ER 450 MG TABLET.ER PO (10:03)
[2021-08-11] MEDS: Loratadine 10 MG TABLET PO (10:03)
[2021-08-11] MEDS: DULoxetine HCl 60 MG CAPSULE.DR PO (10:03)
[2021-08-11] MEDS: Topiramate 25 MG TABLET PO (10:04)
[2021-08-11] MEDS: Ferrous Sulfate 324 MG TABLET.DR PO (10:05)
[2021-08-11] MEDS: Albuterol Sulfate 90 MCG 8 GM INHALER 2 PUFF INHALE (10:08)
[2021-08-11] MEDS: Fluticasone/Vilanterol 100/25 BLST.W.DEV 1 PUFF INHALE (10:22)
[2021-08-11] MEDS: cloNIDine HCL 0.1 MG TABLET PO (11:57)
[2021-08-11] MEDS: Acetaminophen 325 MG TABLET 650 MG PO (13:47)
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
== END 2021-08-11 15:07 | disposition home or self-care (01) | DRG 750 ==
LOC: HO.ED 18:34 → HO.PM5 08-04 17:02
PROVIDERS: Physician Assistant; Psychiatry & Neurology Psychiatry; Registered Nurse; Admitting Provider Psychiatry & Neurology Psychiatry; Emergency Provider Emergency Medicine; Visit Provider Psychiatry & Neurology Psychiatry
PROC: GZB4ZZZ Other Electroconvulsive Therapy (ICD-10-PCS; CPT 90870; principal; 2021-08-06 09:30)
DX: F25.1 Schizoaffective disorder, depressive type (principal); R45.851 Suicidal ideations; F17.210 Nicotine dependence, cigarettes, uncomplicated; K21.9 Gastro-esophageal reflux disease without esophagitis; F60.3 Borderline personality disorder; F43.12 Post-traumatic stress disorder, chronic; K46.9 Unspecified abdominal hernia without obstruction or gangrene; H92.01 Otalgia, right ear; Z91.52 Personal history of nonsuicidal self-harm; Z71.6 Tobacco abuse counseling; Z20.822 Contact with and (suspected) exposure to COVID-19; Z79.899 Other long term (current) drug therapy
CPT/HCPCS: 36415; 70450; 80048; 80061; 80076; 80178; 80307; 81003; 81025; 82077; 82607; 83036; 83735; 84439; 84443; 85025; 87635; 90870; 96372; 99285; J0330; J1642; J1885; J2060; J2405; Q0163

== ENCOUNTER 2021-08-13 06:06 | Day surgery (SDC) | payer OTHER, SELFPAY ==
[2021-08-13] VITALS (7 sets, daily range): BP systolic 102–138; BP diastolic 47–83; PULSE 79–96; RESP 18–22; TEMP 36.4–36.6; O2SAT 94–97; BMI 46.8
[2021-08-13 06:41] LABS: COVID-19 Test Negative (Negative); IDNOW Serial# 9DD0AD1C
--- NOTE | 2021-08-13 07:16 | HO.ANESPROP2 ---
HPI - Anesthesia Eval Consult details Narrative: 36 yo female patient for ECT PMFSH Active Problems Active Problems: All Active Problems (Updated 08/06/21 @ 15:22 by Maurizio Hernández MD) Schizoaffective disorder, depressive type (Chronic) Hernia (Chronic) Ear pain, right (Acute) Suicidal ideation (Acute) Chronic post-traumatic stress disorder (PTSD) (Chronic) Sprain of anterior cruciate ligament of right knee (Acute) Self-inflicted injury (Acute) Lacerations of multiple sites of right arm (Acute) Injury of ligament of right knee (Acute) Increased BMI (Acute) GERD (gastroesophageal reflux disease) (Acute) Recurrent major depression-severe (Chronic) Borderline personality disorder (Chronic) Past Medical History Medical History Acute post-traumatic stress disorder Adjustment disorder Anxiety Asthma Borderline personality disorder Chronic post-traumatic stress disorder (PTSD) COPD (chronic obstructive pulmonary disease) Depression GERD (gastroesophageal reflux disease) Increased BMI Injury, self-inflicted Intentional self-harm PTSD (post-traumatic stress disorder) Recurrent major depression-severe Schizoaffective disorder Self-harming behavior Suicidal ideation Suicidal ideation Family History Family history of problems with anesthesia: No Surgical History History of Problems with Anesthesia: No Social History Social History Household Members: Other Household Members Other:: housemates Housing: Other Housing Other:: residential home Do you presently have visiting nurse or other home services: Yes Alcohol intake: unknown Patient Tobacco Use Status: Current everyday Tobacco user Tobacco use type: Cigarette Cigarette Packs Per Day: 1 Cigarettes Per Day: 20.0 Years Smoked: 17 e-Cigarette/Vaping Use: Never Used Second Hand Smoke Exposure: Yes Substance Use Type: Marijuana Advance Directives: No Advance Directives Information Provided: Yes service: No Sexual orientation: Did not discuss Narrative Narrative: Quit smoking a week ago Meds Allergies Allergy/AdvReac Type Severity Reaction Status Date / Time carbamazepine [From TEGRETOL] AdvReac Unknown NAUSEA & Verified 06/01/21 20:14 VOMITING Active Medications: Current Medications Lactated Ringer's (Lr) 1,000 mls @ 100 mls/hr IVCONT .Q10H [facility] Home Medications Medication Instructions Recorded Confirmed Last Taken Type omeprazole 20 mg capsule,delayed 20 mg PO DAILY 11/29/20 08/02/21 08/02/21 07:00 History release cetirizine 10 mg tablet 10 mg PO DAILY 12/24/20 08/02/21 08/02/21 08:00 History albuterol sulfate 90 mcg/actuation 2 puff INHALATION Q4H PRN 03/30/21 08/02/21 07/31/21 08:00 History aerosol inhaler (Ventolin HFA) diphenhydramine HCl 50 mg capsule 50 mg PO BEDTIME PRN 03/30/21 08/02/21 08/01/21 20:00 History haloperidol decanoate 100 mg/mL 100 mg IM Q4W 03/30/21 08/02/21 07/16/21 08:00 History intramuscular solution (Haldol Decanoate) lorazepam 1 mg tablet 1 mg PO TID PRN 03/30/21 08/02/21 08/01/21 20:00 History prazosin 2 mg capsule 5 mg PO BEDTIME 03/30/21 08/02/21 08/01/21 20:00 History cariprazine 3 mg capsule (Vraylar) 4.5 mg PO DAILY 07/18/21 08/02/21 08/02/21 08:00 History ferrous sulfate 325 mg (65 mg 1 tab PO QAM 08/02/21 08/02/21 08/02/21 08:00 History iron) tablet,delayed release fluticasone 250 mcg-salmeterol 50 1 puff INHALATION BID 08/02/21 08/02/21 08/02/21 08:00 History mcg/dose blistr powdr for inhalation (Advair Diskus) lithium carbonate 300 mg 1 tab PO BID 08/02/21 08/02/21 08/02/21 08:00 History tablet,extended release mirtazapine 15 mg tablet 1 tab PO BEDTIME 08/02/21 08/02/21 08/02/21 08:00 History topiramate 25 mg tablet 1 tab PO BID 08/02/21 08/02/21 08/02/21 07:00 History duloxetine 60 mg capsule,delayed 1 cap PO QAM 08/03/21 08/03/21 08/02/21 08:00 History release gabapentin 600 mg tablet 1 tab PO TID 08/04/21 08/04/21 Unknown History Exam Exam Date and Time: August 13, 2021 0717 Height,Weight and Vital Signs: Height 5 ft Weight 108.862 kg Last Vital Signs Temp 97.5 F 08/13/21 07:10 Pulse 96 08/13/21 07:10 Resp 20 08/13/21 07:10 BP 102/47 L 08/13/21 07:10 Pulse Ox 97 08/13/21 07:10 Pertinent Lab Results Pertinent Lab Results: Laboratory Tests 08/13/21 06:10 COVID-19 (RAFAL) Negative COVID-19 Clin Com See Note Narrative Narrative: Denies any chance of Airway Mallampati Class: III TM Dist: >3cm Neck ROM: Full Loose/Missing/Broken Teeth: Yes (Missing and broken) Heart: RRR Lungs: CTAB Assessment and Plan Assessment Anesthesia Assessment: Anesthesia Plan Discussed and Chart Reviewed Final Anesthetic Review Family History of Problems with Anesthesia: No History of Problems with Anesthesia: No NPO: Yes ASA Class: III Final Preanesthetic Review: No Changes in Pt Med Stat, Meds/Allgs Chart Reviewed, Consent Obtained/Reviewed and Anes Risks/Benef Reviewed Patient Risk: Intermediate Procedure Risk: Intermediate Anesthetic Plan Anesthetic Plan: GA Disposition: Standard PACU
--- NOTE | 2021-08-13 07:39 | MHC.SHP ---
Pre-Procedural Eval Section A Date of Service: 08/13/21 The patient is an INPATIENT: No Changes since office visit: Yes Patient answered all questions; No Cold of Flu in the past 2 weeks, No New Medical Problems and No Changes in Medication The History & Physical has been completed within 30 days and I have reviewed it.: Yes Section B Chief Complaint: depression Allergies: Allergies Allergy/AdvReac Type Severity Reaction Status Date / Time carbamazepine [From TEGRETOL] AdvReac Unknown NAUSEA & Verified 06/01/21 20:14 VOMITING Plan I have reviewed the history and physical and performed a pertinent physical examination on my patient. No changes have occurred unless specified.
--- NOTE | 2021-08-13 07:41 | HO.ECTPROC ---
ECT Procedure Note Diagnosis/Treatment Date of Service: 08/13/21 Diagnosis: Major Depressive Disorder and Other (ptsd) Previous ECT Date: 08/11/21 Current Treatment Number: 4 Treatment: Series ECT Settings Device: THYMATRON DGx Electrode Placement: Bitemporal Energy Percent: 100 Seizure Duration By EEG (in seconds): 12 Medications Administration General Anesthetic: Etomidate (18) Muscle Relaxant: Succinylcholine (100) Ancillary Medications Miscillaneous Medications: Propofol Airway Management Airway Management: Bag Mask Ventilation Treatment Recommendations Notes: lower etomidate to 16 mg or lower as tolerated Pt Tolerated Procedure w/o Issue: Yes
== END 2021-08-13 09:03 | disposition home or self-care (01) ==
PROVIDERS: Visit Provider Psychiatry & Neurology Psychiatry
PROC: (CPT 90870; principal; 2021-08-13 14:00)
DX: F25.1 Schizoaffective disorder, depressive type (principal); R45.851 Suicidal ideations; F43.12 Post-traumatic stress disorder, chronic; F60.3 Borderline personality disorder; J44.9 Chronic obstructive pulmonary disease, unspecified; Z20.822 Contact with and (suspected) exposure to COVID-19; Z91.51 Personal history of suicidal behavior; H92.09 Otalgia, unspecified ear; F17.210 Nicotine dependence, cigarettes, uncomplicated; F12.90 Cannabis use, unspecified, uncomplicated; Z79.899 Other long term (current) drug therapy; Z88.8 Allergy status to other drugs, medicaments and biological substances; F33.3 Major depressive disorder, recurrent, severe with psychotic symptoms
CPT/HCPCS: 36415; 87635; 90870; J0330; J1642; J1885; J2405

== ENCOUNTER 2021-08-20 05:59 | Day surgery (SDC) | payer OTHER, SELFPAY ==
[2021-08-20] VITALS (7 sets, daily range): BP systolic 120–149; BP diastolic 77–91; PULSE 87–107; RESP 9–20; TEMP 36.3–37.1; O2SAT 94–100; BMI 51.5
[2021-08-20 06:34] LABS: COVID-19 Test Negative (Negative); IDNOW Serial# 9DD0AD1C
--- NOTE | 2021-08-20 07:24 | P.PCN_ITS ---
ECT Procedure Note Diagnosis/Treatment Date of Service: 08/20/21 Previous ECT Date: 08/13/21 Current Treatment Number: 5 Treatment: Series Interval Clinical Notes: The patient was recently discharged, reported some dys phoria but no safety concerns. ECT Settings Device: THYMATRON DGx Electrode Placement: Bitemporal Program/Pulse Width: 0.50 Energy Percent: 100 Seizure Duration By EEG (in seconds): 22 By Motor Observation (in seconds): 17 Medications Administration General Anesthetic: Etomidate (18) Muscle Relaxant: Succinylcholine (100) Ancillary Medications Analgesics: Torodol - Pre ECT Anti-emetics: Zofran - Pre ECT Miscillaneous Medications: Propofol Airway Management Airway Management: Bag Mask Ventilation Treatment Recommendations No Changes Recommended: No change Pt Tolerated Procedure w/o Issue: Yes
--- NOTE | 2021-08-20 07:24 | MHC.SHP ---
Pre-Procedural Eval Section A Date of Service: 08/20/21 The patient is an INPATIENT: No Changes since office visit: Yes Cold of Flu in the past 2 weeks, Yes New Medical Problems, Yes Changes in Medication and Yes Patient answered all questions The History & Physical has been completed within 30 days and I have reviewed it.: Yes Section B Chief Complaint: major depressive disorder Allergies: Allergies Allergy/AdvReac Type Severity Reaction Status Date / Time carbamazepine [From TEGRETOL] AdvReac Unknown NAUSEA & Verified 06/01/21 20:14 VOMITING Plan I have reviewed the history and physical and performed a pertinent physical examination on my patient. No changes have occurred unless specified.
--- NOTE | 2021-08-20 07:52 | P.CONAN_ITS ---
[facility] Active Problems Active Problems: All Active Problems (Updated 08/19/21 @ 00:02 by Adiel Brandt) Schizoaffective disorder, depressive type (Chronic) Hernia (Chronic) Chronic post-traumatic stress disorder (PTSD) (Chronic) Sprain of anterior cruciate ligament of right knee (Acute) Self-inflicted injury (Acute) Lacerations of multiple sites of right arm (Acute) Injury of ligament of right knee (Acute) Increased BMI (Acute) GERD (gastroesophageal reflux disease) (Acute) Borderline personality disorder (Chronic) Past Medical History Medical History Acute post-traumatic stress disorder Adjustment disorder Anxiety Asthma Borderline personality disorder Chronic post-traumatic stress disorder (PTSD) COPD (chronic obstructive pulmonary disease) Depression GERD (gastroesophageal reflux disease) Increased BMI Injury, self-inflicted Intentional self-harm PTSD (post-traumatic stress disorder) Recurrent major depression-severe Schizoaffective disorder Self-harming behavior Suicidal ideation Suicidal ideation Functional capacity: independent ambulation Patient : No Family History Family history of problems with anesthesia: No Surgical History History of Problems with Anesthesia: No Social History Social History Household Members: Other Household Members Other:: housemates Housing: Other Housing Other:: residential home Do you presently have visiting nurse or other home services: Yes Alcohol intake: unknown Patient Tobacco Use Status: Former Tobacco user Quit Date: 02-19-21 Tobacco use type: Cigarette Cigarette Packs Per Day: 1 Cigarettes Per Day: 20.0 Years Smoked: 17 e-Cigarette/Vaping Use: Never Used Second Hand Smoke Exposure: Yes Substance Use Type: Marijuana Advance Directives: No Advance Directives Information Provided: Yes service: No Sexual orientation: Did not discuss Meds Allergies Allergy/AdvReac Type Severity Reaction Status Date / Time carbamazepine [From TEGRETOL] AdvReac Unknown NAUSEA & Verified 06/01/21 20:14 VOMITING Home Medications Medication Instructions Recorded Confirmed Last Taken Type omeprazole 20 mg capsule,delayed 20 mg PO DAILY 11/29/20 08/02/21 08/02/21 07:00 History release cetirizine 10 mg tablet 10 mg PO DAILY 12/24/20 08/02/21 08/02/21 08:00 History albuterol sulfate 90 mcg/actuation 2 puff INHALATION Q4H PRN 03/30/21 08/02/21 07/31/21 08:00 History aerosol inhaler (Ventolin HFA) diphenhydramine HCl 50 mg capsule 50 mg PO BEDTIME PRN 03/30/21 08/02/21 08/01/21 20:00 History haloperidol decanoate 100 mg/mL 100 mg IM Q4W 03/30/21 08/02/21 07/16/21 08:00 History intramuscular solution (Haldol Decanoate) lorazepam 1 mg tablet 1 mg PO TID PRN 03/30/21 08/02/21 08/01/21 20:00 History prazosin 2 mg capsule 5 mg PO BEDTIME 03/30/21 08/02/21 08/01/21 20:00 History cariprazine 3 mg capsule (Vraylar) 4.5 mg PO DAILY 07/18/21 08/02/21 08/02/21 08:00 History ferrous sulfate 325 mg (65 mg 1 tab PO QAM 08/02/21 08/02/21 08/02/21 08:00 History iron) tablet,delayed release fluticasone 250 mcg-salmeterol 50 1 puff INHALATION BID 08/02/21 08/02/21 08/02/21 08:00 History mcg/dose blistr powdr for inhalation (Advair Diskus) lithium carbonate 300 mg 1 tab PO BID 08/02/21 08/02/21 08/02/21 08:00 History tablet,extended release mirtazapine 15 mg tablet 1 tab PO BEDTIME 08/02/21 08/02/21 08/02/21 08:00 History topiramate 25 mg tablet 1 tab PO BID 08/02/21 08/02/21 08/02/21 07:00 History duloxetine 60 mg capsule,delayed 1 cap PO QAM 08/03/21 08/03/21 08/02/21 08:00 History release gabapentin 600 mg tablet 1 tab PO TID 08/04/21 08/04/21 Unknown History Exam Exam Date and Time: August 20, 2021 0752 Height,Weight and Vital Signs: Height 4 ft 11 in Weight 115.666 kg Last Vital Signs Temp 98.7 F 08/20/21 07:48 Pulse 95 08/20/21 07:48 Resp 9 L 08/20/21 07:48 BP 149/89 H 08/20/21 07:48 Pulse Ox 96 08/20/21 07:48 Pertinent Lab Results Pertinent Lab Results: Laboratory Tests 08/20/21 06:05 COVID-19 (RAFAL) Negative COVID-19 Clin Com See Note Airway Neck ROM: Full Heart: RRR Lungs: CTA Assessment and Plan Final Anesthetic Review Family History of Problems with Anesthesia: No History of Problems with Anesthesia: No ASA Class: III Final Preanesthetic Review: No Changes in Pt Med Stat, Meds/Allgs Chart Reviewed , Consent Obtained/Reviewed and Anes Risks/Benef Reviewed Patient Risk: Low Procedure Risk: Low Anesthetic Plan Anesthetic Plan: GA Disposition: Standard PACU
--- NOTE | 2021-08-20 12:02 | HO.POSTANES ---
Post Anesthesia Evaluation Post Anesthesia Evaluation Vital Signs: Vital Signs Temp Pulse Resp BP Pulse Ox 08/20/21 08:32 98.7 F 100 20 130/82 96 08/20/21 08:19 88 20 120/77 96 08/20/21 08:03 87 20 126/79 97 08/20/21 07:58 88 20 125/77 96 08/20/21 07:53 92 20 131/78 94 08/20/21 07:48 98.7 F 95 9 L 149/89 H 96 08/20/21 06:47 97.4 F 107 H 20 141/91 H 100 Anesthesia: General Mental Status: Awake Pain Control: Satisfactory Nausea/Vomiting: None Hydration: Adequate Anesthesia-Related Issues: No Anes. Related Issues
== END 2021-08-20 09:20 | disposition home or self-care (01) ==
PROVIDERS: Visit Provider Psychiatry & Neurology Psychiatry
PROC: (CPT 90870; principal; 2021-08-20 07:30)
DX: F33.2 Major depressive disorder, recurrent severe without psychotic features (principal); F43.10 Post-traumatic stress disorder, unspecified; F25.9 Schizoaffective disorder, unspecified; F60.3 Borderline personality disorder; J44.9 Chronic obstructive pulmonary disease, unspecified; K21.9 Gastro-esophageal reflux disease without esophagitis; H92.09 Otalgia, unspecified ear; K46.9 Unspecified abdominal hernia without obstruction or gangrene; R45.851 Suicidal ideations; Z79.899 Other long term (current) drug therapy; Z88.8 Allergy status to other drugs, medicaments and biological substances; F17.210 Nicotine dependence, cigarettes, uncomplicated; Z20.822 Contact with and (suspected) exposure to COVID-19
CPT/HCPCS: 87635; 90870; J0330; J1642; J1885; J2405

== ENCOUNTER 2021-08-20 16:54 | Emergency (ER) | payer OTHER, SELFPAY ==
--- NOTE | 2021-08-20 17:03 | ED_ITS ---
HPI - Psych General Chief Complaint: Psychiatric Symptoms Stated Complaint: section 12 Time Seen by Provider: 08/20/21 17:03 Source: patient and EMS Mode of arrival: ambulatory Limitations: no limitations History of Present Illness HPI Narrative: this is a 36-year-old female well known to our facility past medical history significant for schizoaffective disorder depressive type, borderline personality disorder, PTSD, self-inflicted injuries presenting to the emergency department via ambulance on a Section 12 for suicidal ideation and self-harm. Patient is coming from a residential, she tells me she got a call from the DA this morning that upset her, she started cutting her wrist and feeling suicidal. She tells me she really wants to kill herself. She endorses auditory hallucinations and tells me she hears male voices saying I am gonna . She denies visual and tactile hallucinations. She denies drug, alcohol and tobacco use at this time. She denies homicidal ideation. She has no medical complaints at this time MD complaint: suicidal ideation and hallucinations Onset (ago): hour(s) (1) Duration: constant History of same: Yes Relieving factors: other (cutting ) Exacerbating factors: none Associated psychiatric symptoms: none Associated symptoms: denies other symptoms Treatments prior to arrival: placed on mental health hold If self harm: admits thoughts of self harm and has plan (cut/ bleed to . ) Related Data Home Medications Medication Instructions Recorded Confirmed omeprazole 20 mg capsule,delayed 20 mg PO DAILY 11/29/20 08/02/21 release cetirizine 10 mg tablet 10 mg PO DAILY 12/24/20 08/02/21 albuterol sulfate 90 mcg/actuation 2 puff INHALATION Q4H PRN 03/30/21 08/02/21 aerosol inhaler (Ventolin HFA) diphenhydramine HCl 50 mg capsule 50 mg PO BEDTIME PRN 03/30/21 08/02/21 haloperidol decanoate 100 mg/mL 100 mg IM Q4W 03/30/21 08/02/21 intramuscular solution (Haldol Decanoate) lorazepam 1 mg tablet 1 mg PO TID PRN 03/30/21 08/02/21 prazosin 2 mg capsule 5 mg PO BEDTIME 03/30/21 08/02/21 cariprazine 3 mg capsule (Vraylar) 4.5 mg PO DAILY 07/18/21 08/02/21 ferrous sulfate 325 mg (65 mg 1 tab PO QAM 08/02/21 08/02/21 iron) tablet,delayed release fluticasone 250 mcg-salmeterol 50 1 puff INHALATION BID 08/02/21 08/02/21 mcg/dose blistr powdr for inhalation (Advair Diskus) lithium carbonate 300 mg 1 tab PO BID 08/02/21 08/02/21 tablet,extended release mirtazapine 15 mg tablet 1 tab PO BEDTIME 08/02/21 08/02/21 topiramate 25 mg tablet 1 tab PO BID 08/02/21 08/02/21 duloxetine 60 mg capsule,delayed 1 cap PO QAM 08/03/21 08/03/21 release gabapentin 600 mg tablet 1 tab PO TID 08/04/21 08/04/21 Previous Rx's Medication Instructions Recorded trazodone 50 mg tablet 50 mg PO BEDTIME PRN 30 Days #30 08/19/20 tab acetaminophen 325 mg tablet 650 mg PO Q6H PRN #0 tab 08/11/21 clonidine HCl 0.1 mg tablet 0.1 mg PO BID PRN 30 Days #60 tab 08/11/21 nicotine (polacrilex) 2 mg gum 2 mg BUCCAL Q2H 30 Days #100 ea 08/11/21 (Nicorette) Allergies Allergy/AdvReac Type Severity Reaction Status Date / Time carbamazepine [From TEGRETOL] AdvReac Unknown NAUSEA & Verified 06/01/21 20:14 VOMITING Review of Systems Review of Systems: Constitutional : No Fever, No Chills ENT/Mouth : No Ear Pain, No Nasal Congestion, No sore throat Eyes: No Eye Pain, No Swelling, No Redness Cardiovascular : No Chest Pain, No SOB Respiratory : No Cough, No Sputum, No Dyspnea Gastrointestinal : No Nausea, No Vomiting, No Diarrhea, No Hematochezia, No Melena Genitourinary : No Dysuria, No Urinary Frequency, No Hematuria Musculoskeletal : No Myalgias Skin : No Skin Lesions, No rash Neuro : No Weakness, No Numbness, No Paresthesias, No Dizziness, No Headache Psych : positive Anxiety, positive Depression, positive SI, No HI All other systems reviewed and are negative Yes all other systems are reviewed and are negative [facility] Past Medical History Attestation statement: The following information was validated with the patient. Source: old records reviewed and nursing notes reviewed Medical History Acute post-traumatic stress disorder Adjustment disorder Anxiety Asthma Borderline personality disorder Chronic post-traumatic stress disorder (PTSD) COPD (chronic obstructive pulmonary disease) Depression GERD (gastroesophageal reflux disease) Increased BMI Injury, self-inflicted Intentional self-harm PTSD (post-traumatic stress disorder) Recurrent major depression-severe Schizoaffective disorder Self-harming behavior Suicidal ideation Suicidal ideation Social History Social History Household Members: Other Household Members Other:: housemates Housing: Other Housing Other:: residential home Do you presently have visiting nurse or other home services: Yes Alcohol intake: unknown Patient Tobacco Use Status: Former Tobacco user Quit Date: 02-19-21 Tobacco use type: Cigarette Cigarette Packs Per Day: 1 Cigarettes Per Day: 20.0 Years Smoked: 17 e-Cigarette/Vaping Use: Never Used Second Hand Smoke Exposure: Yes Substance Use Type: Marijuana Advance Directives: No service: No Sexual orientation: Did not discuss Physical Exam Vital Signs: Vital Signs: Last Vital Signs Temp 98.1 F 08/20/21 17:23 Pulse 100 08/20/21 17:23 Resp 18 08/20/21 17:23 BP 164/90 H 08/20/21 17:23 Pulse Ox 95 08/20/21 17:23 BMI result Body Mass Index 64.5 VSS Appearance: Alert.? Oriented X3.? No acute distress.? Head: Normocephalic, atraumatic, no step-offs or deformities Eyes: Pupils equal, round and reactive to light.? ENT: Pharynx normal.? Neck: Normal inspection.? Neck supple.? CVS: Normal heart rate and rhythm.? Pulses normal.? Respiratory: No respiratory distress.? Breath sounds normal.? Abdomen: Soft and nontender.? Skin: Skin warm and dry.? Normal skin color.? Normal skin turgor.? + self- inflicted wounds to bilateral ventral aspects of forearms. Bleeding well controlled, superficial. Extremities: No lower extremity edema.? No calf ttp. 5/5 strength to bilateral upper and lower extremities Back: No midline tenderness, no C-spine tenderness, full range of motion, no CVA tenderness bilaterally Neuro: Oriented X 3.? No motor deficit.? No sensory deficit. CN 2-12 intact Course Reevaluation(s) Reevaluation #1: Sign out will be given to Aaron LEDESMA Pending labs, urine. Time: 18:27 MDM - Psych MDM Narrative Medical decision making narrative: 1705 36 yo F pmhx schizoaffective disorder depressive type, borderline personality disorder, PTSD, self-inflicted injuries presenting to the emergency department via ambulance on a Section 12 for suicidal ideation and self-harm. PE- significant for Superficial self-inflicted wounds to bilateral ventral aspect of forearm. Plan at this time is basic labs, COVID, ethanol, urine tox Medical Records Attestation: I reviewed the patient's medical records. Lab Data Attestation: I reviewed the patient's lab results. Labs: Lab Results 08/20/21 Range/Units 17:12 COVID-19 (RAFAL) Negative (Negative) COVID-19 Clin Com See Note Critical Care Time Critical Care Time Critical Care Time: No Discharge Plan Discharge Clinical Impression: Suicidal ideation, Depression Patient Disposition: Still a Patient Prescriptions: No Action omeprazole 20 mg capsule,delayed release(DR/EC) 20 mg PO DAILY RF: 0 trazodone 50 mg Tablet 50 mg PO BEDTIME PRN (Reason: Insomnia) 30 Days Qty: 30 RF: 0 cetirizine 10 mg Tablet 10 mg PO DAILY RF: 0 prazosin 2 mg Capsule 5 mg PO BEDTIME RF: 0 haloperidol decanoate [Haldol Decanoate] 100 mg/mL solution 100 mg IM Q4W RF: 0 diphenhydramine HCl 50 mg Capsule 50 mg PO BEDTIME PRN (Reason: Insomnia) RF: 0 lorazepam 1 mg tablet 1 mg PO TID PRN (Reason: Anxiety/Restlessness ) RF: 0 albuterol sulfate [Ventolin HFA] 90 mcg/actuation HFA aerosol inhaler 2 puff inhalation Q4H PRN (Reason: wheezing) RF: 0 topiramate 25 mg tablet 1 tab PO BID RF: 0 mirtazapine 15 mg tablet 1 tab PO BEDTIME RF: 0 lithium carbonate 300 mg tablet extended release 1 tab PO BID RF: 0 fluticasone propion-salmeterol [Advair Diskus] 250-50 mcg/dose blister with device 1 puff inhalation BID RF: 0 ferrous sulfate 325 mg (65 mg iron) tablet,delayed release (DR/EC) 1 tab PO QAM RF: 0 duloxetine 60 mg capsule,delayed release(DR/EC) 1 cap PO QAM RF: 0 gabapentin 600 mg tablet 1 tab PO TID RF: 0 acetaminophen 325 mg Tablet 650 mg PO Q6H PRN (Reason: Headache/Pain Mild Scale (1-3)) Qty: 0 RF: 0 nicotine (polacrilex) [Nicorette] 2 mg gum 2 mg buccal Q2H 30 Days Qty: 100 RF: 0 clonidine HCl 0.1 mg Tablet 0.1 mg PO BID PRN (Reason: anxiety) 30 Days Qty: 60 RF: 0 Vraylar 3 mg capsule 4.5 mg PO DAILY RF: 0
[2021-08-20 17:23] VITALS: BP 132/88; BP 164/90; PULSE 100; PULSE 88; RESP 18; TEMP 36.7; O2SAT 100; O2SAT 95; BMI 64.5
[2021-08-20 17:34] LABS: COVID-19 Test Negative (Negative); IDNOW Serial# 08D9AD1C
[2021-08-20] MEDS: LORazepam 1 MG TABLET PO (17:41)
[2021-08-20 18:49] LABS: Amphetamine Screen Urine Not Detected (Not Detect); Barbiturates, Urine Not Detected (Not Detect); Benzodiazepines Screen Urine Not Detected (Not Detect); Cannabinoid Screen Urine POSITIVE (Not Detect); Cocaine Screen Urine Not Detected (Not Detect); Fentanyl, urine POSITIVE (Not Detect); Opiate Screen Urine Not Detected (Not Detect); Phencyclidine Screen Urine Not Detected (Not Detect)
--- NOTE | 2021-08-20 19:31 | PC.NURSE ---
Patient in bed appears sleeping, patient is on 15 minute check, no distress observed/reported at this time, will continue to monitor.
[2021-08-20 22:06] LABS: MANUAL DIFF FLAG NO
[2021-08-20 22:07] LABS: Basophils Percent Auto 0.1 % (0-2); Eosinophils Percent Auto 0.4 % (0-4); Hematocrit 35.5 % (37.0-47.0); Hemoglobin 10.9 g/dl (12.0-16.0); Imm Gran Abs Auto 0.02 X10*3/uL (0.00-0.03); Imm Gran Pct Auto 0.2 % (0.0-0.4); Lymphocytes Absolute Auto 2.9 X10*3/uL (1.2-4.9); Lymphocytes Percent Auto 32.5 % (20-40); Mean Corpuscular HGB Conc 30.7 g/dl (31.0-35.0); Mean Corpuscular Hemoglobin 26.2 pg (27.0-33.0); Mean Corpuscular Volume 85.3 fL (80.0-98.0); Mean Platelet Volume 10.6 fL (9.4-12.3); Monocytes Absolute Auto 0.6 X10*3/uL (0.1-1.2); Monocytes Percent Auto 6.8 % (2-11); Neutrophils Absolute Auto 5.4 x10*3/uL (2.0-8.3); Platelet Count 295 X10*3/uL (160-400); Red Blood Count 4.16 X10*6/uL (4.20-5.50); Red Cell Distribution Width 17.5 % (11.0-16.0)
[2021-08-20 22:23] LABS: Ethanol < 10 mg/dL
[2021-08-20 22:28] LABS: Alanine Aminotransferase 11 U/L (0-31); Albumin Level 3.7 g/dL (3.5-5.0); Alkaline Phosphatase 65 U/L (39-117); Aspartate Amino Transferase 11 U/L (5-31); Bilirubin Total 0.3 mg/dL (0.0-1.0); Blood Urea Nitrogen 11 mg/dL (9-16); Creatinine Clr Calc Pharmacy 161.9; Estimated Glomerular Filt Rate > 60; Glucose Random 94 mg/dL (60-115)
[2021-08-20 22:38] LABS: Anion Gap 10 (12-20); Carbon Dioxide 21 mmol/L (22-29); Chloride 114 mmol/L (96-108); Sodium 141 mmol/L (135-145)
[2021-08-21 00:46] VITALS: BP 113/72; PULSE 81; RESP 20; TEMP 36.3; O2SAT 97
--- NOTE | 2021-08-21 02:08 | PC.NURSE ---
PT in bed resting at this time, VS. PT denies SI/HI at this time.
--- NOTE | 2021-08-21 06:54 | PC.NURSE ---
PT currently on 15 minute checks, per MD.
--- NOTE | 2021-08-21 10:36 | PC.NURSE ---
Pt currently on a 1:1, walked with staff to bedroom with steady gait. Withdrawn, quiet, no evidence of self harm behaviors at this time.
--- NOTE | 2021-08-21 11:46 | MHC.CARE ---
Pt requesting to be discharged. Pt is verbalizing safety and would like to return to her supported living residence. CARE Team case consulted with Dr. Jesus who is agreement with plan to discharge and follow up with outpatient providers.
--- NOTE | 2021-08-21 13:43 | MHC.CARE ---
CARE Team receives a call from [facility] [place] community service organization director, Katina, who is looking for information relating to change in disposition. CARE Team explains that pt is voicing feeling safe, denies SI and thoughts/urges relating to self harm. Katina states that pt broke open a peer's razor, and staff would like for pt to give sharps over to staff. CARE Team recommends after finding out that pt would like to go with staff for a coffee that they first bring pt to , ask for the sharps, then go for coffee after she gives over sharps. Pt voices to CARE Team that she will give sharps to staff. Plan is for staff to drill press set up operator radial pt, and for pt to attend ECT tomorrow.
== END 2021-08-21 13:47 | disposition home or self-care (01) ==
PROVIDERS: Physician Assistant; Emergency Provider Emergency Medicine Emergency Medical Services; PCP Pediatrics
DX: R45.851 Suicidal ideations (principal); F32.A Depression, unspecified; F41.9 Anxiety disorder, unspecified; S60.812A Abrasion of left wrist, initial encounter; S60.811A Abrasion of right wrist, initial encounter; X78.9XXA Intentional self-harm by unspecified sharp object, initial encounter; Z20.822 Contact with and (suspected) exposure to COVID-19; F25.1 Schizoaffective disorder, depressive type; F60.3 Borderline personality disorder; F43.10 Post-traumatic stress disorder, unspecified; F17.200 Nicotine dependence, unspecified, uncomplicated; Z91.51 Personal history of suicidal behavior; Z79.899 Other long term (current) drug therapy; F12.90 Cannabis use, unspecified, uncomplicated; Y93.89 Activity, other specified; Y92.9 Unspecified place or not applicable; Y99.9 Unspecified external cause status
CPT/HCPCS: 80053; 80307; 82077; 85025; 87635; 99285

== ENCOUNTER 2021-08-29 21:29 | Emergency (ER) | payer OTHER, SELFPAY ==
[2021-08-29 21:37] VITALS: BP 143/57; PULSE 99; RESP 20; TEMP 36.6; O2SAT 97; BMI 45.3
--- NOTE | 2021-08-29 21:38 | ED_ITS ---
HPI - Psych General Chief Complaint: Psychiatric Symptoms Stated Complaint: SI Time Seen by Provider: 08/29/21 21:38 Source: patient, EMS, RN notes reviewed and old records reviewed Mode of arrival: EMS Limitations: no limitations History of Present Illness HPI Narrative: 36 y/o female with history of PTSD, borderline personality disorder, schizoaffective disorder who presents to the ER with auditory hallucinations with voices telling her to harm herself. She reports for the last 2 weeks she has been struggling. She relates it to not getting her ECT, states she was not on the schedule. She reports compliance with all of her medications. She has not been eating or sleeping. She has been cutting her bilateral forearms uncontrollably. She reports she cannot stop. She denies drug use. MD complaint: feels depressed, anxiety, hallucinations and other (self harm) Onset (ago): day(s) Duration: constant History of same: Yes Relieving factors: none Exacerbating factors: none Context: significant life stressor Associated psychiatric symptoms: depression and auditory hallucinations Associated symptoms: insomnia and other (poor PO intake) Treatments prior to arrival: placed on mental health hold If self harm: admits thoughts of self harm and has acted on plan Related Data Home Medications Medication Instructions Recorded Confirmed omeprazole 20 mg capsule,delayed 20 mg PO DAILY 11/29/20 08/29/21 release cetirizine 10 mg tablet 10 mg PO DAILY 12/24/20 08/29/21 albuterol sulfate 90 mcg/actuation 2 puff INHALATION Q4H PRN 03/30/21 08/29/21 aerosol inhaler (Ventolin HFA) diphenhydramine HCl 50 mg capsule 50 mg PO BEDTIME PRN 03/30/21 08/29/21 haloperidol decanoate 100 mg/mL 100 mg IM Q4W 03/30/21 08/29/21 intramuscular solution (Haldol Decanoate) lorazepam 1 mg tablet 1 mg PO TID PRN 03/30/21 08/29/21 prazosin 2 mg capsule 5 mg PO BEDTIME 03/30/21 08/29/21 cariprazine 3 mg capsule (Vraylar) 4.5 mg PO DAILY 07/18/21 08/29/21 ferrous sulfate 325 mg (65 mg 1 tab PO QAM 08/02/21 08/29/21 iron) tablet,delayed release fluticasone 250 mcg-salmeterol 50 1 puff INHALATION BID 08/02/21 08/29/21 mcg/dose blistr powdr for inhalation (Advair Diskus) lithium carbonate 300 mg 1 tab PO BID 08/02/21 08/29/21 tablet,extended release mirtazapine 15 mg tablet 1 tab PO BEDTIME 08/02/21 08/29/21 topiramate 25 mg tablet 1 tab PO BID 08/02/21 08/29/21 duloxetine 60 mg capsule,delayed 1 cap PO QAM 08/03/21 08/29/21 release gabapentin 600 mg tablet 1 tab PO TID 08/04/21 08/29/21 Previous Rx's Medication Instructions Recorded trazodone 50 mg tablet 50 mg PO BEDTIME PRN 30 Days #30 08/19/20 tab acetaminophen 325 mg tablet 650 mg PO Q6H PRN #0 tab 08/11/21 clonidine HCl 0.1 mg tablet 0.1 mg PO BID PRN 30 Days #60 tab 08/11/21 nicotine (polacrilex) 2 mg gum 2 mg BUCCAL Q2H 30 Days #100 ea 08/11/21 (Nicorette) Allergies Allergy/AdvReac Type Severity Reaction Status Date / Time carbamazepine [From TEGRETOL] AdvReac Unknown NAUSEA & Verified 06/01/21 20:14 VOMITING Review of Systems Review of Systems: Constitutional: No Fever, No Chills ENT/Mouth: No sore throat, No Rhinorrhea Cardiovascular: No Chest Pain, No SOB, No Edema Respiratory: No Cough, No Sputum, No Wheezing, No dyspnea Gastrointestinal: No Nausea, No Vomiting, No Diarrhea, No abdominal Pain Musculoskeletal: No joint pain, No Myalgias Skin: + Skin Lesions, No rash Neuro: No Weakness, No Numbness, No Dizziness, No Headache Psych: + Anxiety/Panic, + Depression, +SI, +AH, No VH Heme/Lymph: No Bruising, No Lymphadenopathy Endocrine: No Polyuria, No Polydipsia PMFSH Past Medical History Medical History Acute post-traumatic stress disorder Adjustment disorder Anxiety Asthma Borderline personality disorder Chronic post-traumatic stress disorder (PTSD) COPD (chronic obstructive pulmonary disease) Depression GERD (gastroesophageal reflux disease) Increased BMI Injury, self-inflicted Intentional self-harm PTSD (post-traumatic stress disorder) Recurrent major depression-severe Schizoaffective disorder Self-harming behavior Suicidal ideation Suicidal ideation Social History Social History Household Members: Other Household Members Other:: housemates Housing: Other Housing Other:: residential home Do you presently have visiting nurse or other home services: Yes Alcohol intake: unknown Patient Tobacco Use Status: Former Tobacco user Quit Date: 02-19-21 Tobacco use type: Cigarette Cigarette Packs Per Day: 1 Cigarettes Per Day: 20.0 Years Smoked: 17 e-Cigarette/Vaping Use: Never Used Second Hand Smoke Exposure: Yes Substance Use Type: Marijuana and Opiates Advance Directives: No Advance Directives Information Provided: Yes Patient : No service: No Sexual orientation: Did not discuss Physical Exam Vital Signs: Vital Signs: Last Vital Signs Temp 97.9 F 08/29/21 21:37 Pulse 99 08/29/21 21:37 Resp 20 08/29/21 21:37 BP 143/57 H 08/29/21 21:37 Pulse Ox 97 08/29/21 21:37 BMI result Body Mass Index 45.3 Appearance: Alert. Oriented X3. No acute distress. Eyes: Pupils equal, round and reactive to light. ENT: Pharynx normal. Neck: Normal inspection. Neck supple. CVS: Normal heart rate and rhythm. Pulses normal. Respiratory: No respiratory distress. Breath sounds normal. Abdomen: Obese Soft and nontender. +BS x4 Skin: Skin warm and dry. Normal skin color. Normal skin turgor. No rashes. Extremities: No lower extremity edema. Bilateral forearms with extensive well- healed linear scars consistent with prior self-harm as well as multiple superficial wounds to bilateral forearms, right forearm significantly worse than the left. Active bleeding and skin is erythematous and excoriated. Neuro/psych: Oriented X 3. Moves all 4 extremities, CN II-XII intact. Flat affect with restlessness, anxious, guarded, tense. poor insight and judgement Course Course Course Narrative: 36-year-old female well known to this ER and facility who presents to the ER with auditory hallucinations and self-harm. She is unstable at this time with ongoing scratching and ripping at her skin. Concern for ongoing self-harm. Will medically restrain with intramuscular medications for her safety. Will monitor closely. Will get crisis team evaluation once clinically stable and medically cleared. Reevaluation(s) Reevaluation #1: Physician observation started at 11:10pm. Patient placed in physician observation because patient is awaiting [facility] evaluation for the possible need of inpatient psych admission. At the time observation was started patient's vital signs were stable. Patient is calm and slightly lethargic after medications but stable. Neuro exam is non-focal. CV: RRR and lungs are clear. Will continue to monitor. [facility] - Psych Lab Data Labs: Lab Results 08/29/21 08/29/21 08/29/21 Range/Units 21:53 21:53 21:53 Urine Test NEGATIVE (NEGATIVE) Urine Opiates Screen Not Detected (Not Detect) Urine Fentanyl Screen POSITIVE H (Not Detect) Ur Barbiturates Screen Not Detected (Not Detect) Ur Phencyclidine Scrn Not Detected (Not Detect) Ur Amphetamines Screen Not Detected (Not Detect) U Benzodiazepines Scrn Not Detected (Not Detect) Urine Cocaine Screen Not Detected (Not Detect) U Marijuana (THC) Screen POSITIVE H (Not Detect) COVID-19 (RAFAL) Negative (Negative) COVID-19 Clin Com See Note Discharge Plan Discharge Clinical Impression: Self-inflicted injury, Auditory hallucination Patient Disposition: Still a Patient Prescriptions: No Action omeprazole 20 mg capsule,delayed release(DR/EC) 20 mg PO DAILY RF: 0 trazodone 50 mg Tablet 50 mg PO BEDTIME PRN (Reason: Insomnia) 30 Days Qty: 30 RF: 0 cetirizine 10 mg Tablet 10 mg PO DAILY RF: 0 prazosin 2 mg Capsule 5 mg PO BEDTIME RF: 0 haloperidol decanoate [Haldol Decanoate] 100 mg/mL solution 100 mg IM Q4W RF: 0 diphenhydramine HCl 50 mg Capsule 50 mg PO BEDTIME PRN (Reason: Insomnia) RF: 0 lorazepam 1 mg tablet 1 mg PO TID PRN (Reason: Anxiety/Restlessness ) RF: 0 albuterol sulfate [Ventolin HFA] 90 mcg/actuation HFA aerosol inhaler 2 puff inhalation Q4H PRN (Reason: wheezing) RF: 0 topiramate 25 mg tablet 1 tab PO BID RF: 0 mirtazapine 15 mg tablet 1 tab PO BEDTIME RF: 0 lithium carbonate 300 mg tablet extended release 1 tab PO BID RF: 0 fluticasone propion-salmeterol [Advair Diskus] 250-50 mcg/dose blister with device 1 puff inhalation BID RF: 0 ferrous sulfate 325 mg (65 mg iron) tablet,delayed release (DR/EC) 1 tab PO QAM RF: 0 duloxetine 60 mg capsule,delayed release(DR/EC) 1 cap PO QAM RF: 0 gabapentin 600 mg tablet 1 tab PO TID RF: 0 acetaminophen 325 mg Tablet 650 mg PO Q6H PRN (Reason: Headache/Pain Mild Scale (1-3)) Qty: 0 RF: 0 nicotine (polacrilex) [Nicorette] 2 mg gum 2 mg buccal Q2H 30 Days Qty: 100 RF: 0 clonidine HCl 0.1 mg Tablet 0.1 mg PO BID PRN (Reason: anxiety) 30 Days Qty: 60 RF: 0 Vraylar 3 mg capsule 4.5 mg PO DAILY RF: 0
[2021-08-29 22:02] LABS: UPreg QC Valid YES; Urine Pregnancy NEGATIVE (NEGATIVE)
[2021-08-29 22:13] LABS: COVID-19 Test Negative (Negative); IDNOW Serial# 9DD0AD1C
[2021-08-29 22:21] LABS: Amphetamine Screen Urine Not Detected (Not Detect); Barbiturates, Urine Not Detected (Not Detect); Benzodiazepines Screen Urine Not Detected (Not Detect); Cannabinoid Screen Urine POSITIVE (Not Detect); Cocaine Screen Urine Not Detected (Not Detect); Fentanyl, urine POSITIVE (Not Detect); Opiate Screen Urine Not Detected (Not Detect); Phencyclidine Screen Urine Not Detected (Not Detect)
[2021-08-29 22:30] VITALS: RESP 18
[2021-08-29] MEDS: diphenhydrAMINE HCL 50 MG/ML VIAL IM (22:30)
[2021-08-29] MEDS: Haloperidol Lactate 5 MG/ML VIAL IM (22:30)
[2021-08-29] MEDS: LORazepam 2 MG/ML VIAL IM (22:30)
[2021-08-29 22:45] VITALS: RESP 20
[2021-08-29 23:00] VITALS: RESP 18
[2021-08-29 23:15] VITALS: RESP 18
[2021-08-29 23:30] VITALS: RESP 18
[2021-08-30 01:26] LABS: Appearance Urine CLEAR; Color Urine YELLOW; Glucose Urine UA NEG (NEG); Leukocyte Esterase Urine NEG (NEG); Nitrite Urine NEG (NEG); Urine Blood NEG (NEG); Urine Ketones NEG (NEG); Urine Protein NEG (NEG-TRACE)
--- NOTE | 2021-08-30 06:07 | PC.NURSE ---
Patient slept through the night, no distress observed/reported, patient was extensively exhibiting self harm behavior that requires 1:1 arms length observation, provider notified/ordered Ativan 2 mg IM, Haldol 5 mg IM, and Benadryl 50 mg IM, administered as ordered 2229 with positive effect, patient has multiple superficial cuts on her right hand and this is baseline behavior, med rec completed/pending provider's approval, care team consult in placed to to see patient needs full BHN evaluation, VSS, patient is 1:1 for safety, will continue to monitor,
[2021-08-30 06:24] VITALS: BP 94/50; PULSE 81; RESP 18; TEMP 36.8; O2SAT 96
--- NOTE | 2021-08-30 07:14 | PC.NURSE ---
patient appears to remain asleep at present respirations are even and unlabored patient appears in no distress
[2021-08-30] MEDS: LORazepam 1 MG TABLET 2 MG PO ×2 (09:11→14:03)
[2021-08-30] MEDS: OLANZapine 10 MG TABLET PO ×2 (09:11→14:02)
--- NOTE | 2021-08-30 13:36 | PHA.MEDREC ---
Pharmacy Consult ? Medication Reconciliation Nursing has completed the medication reconciliation. Pharmacy has reviewed it. The nurse made some errors on the med rec over night. The patient is no longer on Gabapentin so I DC'd the order. The pharmacy fill history shows she is on lithium immediate release 600 mg at bedtime not ER BID. I informed the provider about the changes to the med rec.
[2021-08-30] MEDS: DULoxetine HCl 60 MG CAPSULE.DR PO (14:01)
[2021-08-30] MEDS: Ferrous Sulfate 324 MG TABLET.DR PO (14:02)
[2021-08-30] MEDS: Cariprazine HCl 1.5 MG CAPSULE PO (14:04)
--- NOTE | 2021-08-30 15:35 | PC.NURSE ---
provider requested patient to be re-evaluated, relayed info to care team.
--- NOTE | 2021-08-30 15:38 | MHC.CARE ---
Pt is requesting to be discharged. [facility] tellers supervisor notified.
[2021-08-30 16:14] VITALS: BP 103/65; PULSE 80; RESP 18; TEMP 36.4; O2SAT 98
[2021-08-30] MEDS: Topiramate 25 MG TABLET PO (19:27)
[2021-08-30] MEDS: Lithium Carbonate 300 MG TABLET 600 MG PO (19:27)
[2021-08-30] MEDS: Mirtazapine 15 MG TABLET PO (19:27)
[2021-08-30] MEDS: Prazosin HCL 1 MG CAPSULE 5 MG PO (19:27)
[2021-08-30 19:29] VITALS: BP 114/59; PULSE 70
[2021-08-30] MEDS: LORazepam 1 MG TABLET PO (20:16)
[2021-08-30] MEDS: diphenhydrAMINE HCL 25 MG TABLET 50 MG PO (20:16)
[2021-08-31 00:03] VITALS: BP 102/65; PULSE 85; RESP 18; TEMP 37.1; O2SAT 96
--- NOTE | 2021-08-31 05:43 | PC.NURSE ---
Patient slept through the night, no distress observed/reported, behavior appropriate, medication compliant, disposition section 12 inpatient bed search per APRIL LOZANO, patient is 1:1 for safety, will continue to monitor,
[2021-08-31] MEDS: Ferrous Sulfate 324 MG TABLET.DR PO (08:51)
[2021-08-31] MEDS: cloNIDine HCL 0.1 MG TABLET PO (08:51)
[2021-08-31] MEDS: Loratadine 10 MG TABLET PO (08:51)
[2021-08-31] MEDS: DULoxetine HCl 60 MG CAPSULE.DR PO (08:52)
[2021-08-31] MEDS: Omeprazole 20 MG CAPSULE.DR PO (08:52)
[2021-08-31] MEDS: LORazepam 1 MG TABLET PO (08:52)
[2021-08-31] MEDS: Topiramate 25 MG TABLET PO (08:53)
[2021-08-31 09:08] VITALS: BP 106/79; PULSE 89; RESP 16; TEMP 36.6; O2SAT 97
--- NOTE | 2021-08-31 10:10 | MHC.CARE ---
CARE Team left for Louis program engagement director regarding Pt secondary to frequent request to be discharged.
[2021-08-31] MEDS: Albuterol Sulfate 90 MCG 8 GM INHALER 2 PUFF INHALE (11:25)
--- NOTE | 2021-08-31 11:52 | MHC.CARE ---
CARE Team case consulted with Dr. Hernández who is in agreement with [facility] recommendation of discharge. Pt at baseline experiences chronic suicidal ideation and engages in NSSIB. CARE Team spoke Louis who informed t/w he is concerned Pt has been increasingly the frequency of her self harm. He reports he is aware of the limitations of the ED and involuntary hospitalizations. Plan for Pt to be discharged back to her custodial and follow up with outpatient providers as needed and utilize crisis services if needed.
== END 2021-08-31 11:57 | disposition home or self-care (01) ==
PROVIDERS: Physician Assistant; Emergency Provider Emergency Medicine Emergency Medical Services
DX: F33.1 Major depressive disorder, recurrent, moderate (principal); R44.0 Auditory hallucinations; Z91.51 Personal history of suicidal behavior; Z20.822 Contact with and (suspected) exposure to COVID-19; Z79.899 Other long term (current) drug therapy; F17.210 Nicotine dependence, cigarettes, uncomplicated; Z71.6 Tobacco abuse counseling
CPT/HCPCS: 80307; 81003; 81025; 87635; 96372; 99285; J1200; J2060; Q0163

== ENCOUNTER 2021-09-01 19:43 | Inpatient (IN) | payer OTHER, SELFPAY ==
--- NOTE | 2021-09-01 19:47 | ED.PSYCH ---
HPI - Psych General Chief Complaint: Psychiatric Symptoms Stated Complaint: SI, calm/cooperative/voluntary Time Seen by Provider: 09/01/21 19:47 Source: patient and EMS Mode of arrival: EMS Limitations: no limitations History of Present Illness MD complaint: suicidal ideation and feels depressed Onset (ago): day(s) (2) Duration: getting worse History of same: Yes Relieving factors: none Exacerbating factors: other Context: significant life stressor Associated psychiatric symptoms: depression and suicidal ideation Associated symptoms: denies other symptoms Treatments prior to arrival: placed on mental health hold (bed search from community) If self harm: admits thoughts of self harm, has plan and self-inflicted trauma (abrasion on forehead states she was hitting her head on the wall ) Related Data Home Medications Medication Instructions Recorded Confirmed omeprazole 20 mg capsule,delayed 20 mg PO DAILY 11/29/20 08/29/21 release cetirizine 10 mg tablet 10 mg PO DAILY 12/24/20 09/01/21 albuterol sulfate 90 mcg/actuation 2 puff INHALATION Q4H PRN 03/30/21 09/01/21 aerosol inhaler (Ventolin HFA) diphenhydramine HCl 50 mg capsule 50 mg PO BEDTIME PRN 03/30/21 08/29/21 haloperidol decanoate 100 mg/mL 100 mg IM Q4W 03/30/21 08/29/21 intramuscular solution (Haldol Decanoate) lorazepam 1 mg tablet 1 mg PO TID PRN 03/30/21 08/29/21 prazosin 2 mg capsule 5 mg PO BEDTIME 03/30/21 08/29/21 cariprazine 3 mg capsule (Vraylar) 4.5 mg PO DAILY 07/18/21 08/29/21 ferrous sulfate 325 mg (65 mg 1 tab PO QAM 08/02/21 08/29/21 iron) tablet,delayed release fluticasone 250 mcg-salmeterol 50 1 puff INHALATION BID 08/02/21 08/29/21 mcg/dose blistr powdr for inhalation (Advair Diskus) mirtazapine 15 mg tablet 1 tab PO BEDTIME 08/02/21 08/29/21 topiramate 25 mg tablet 1 tab PO BID 08/02/21 08/29/21 duloxetine 60 mg capsule,delayed 1 cap PO QAM 08/03/21 08/29/21 release lithium carbonate 300 mg tablet 2 tab PO BEDTIME 08/30/21 08/30/21 Previous Rx's Medication Instructions Recorded trazodone 50 mg tablet 50 mg PO BEDTIME PRN 30 Days #30 08/19/20 tab acetaminophen 325 mg tablet 650 mg PO Q6H PRN #0 tab 08/11/21 clonidine HCl 0.1 mg tablet 0.1 mg PO BID PRN 30 Days #60 tab 08/11/21 nicotine (polacrilex) 2 mg gum 2 mg BUCCAL Q2H 30 Days #100 ea 08/11/21 (Nicorette) Allergies Allergy/AdvReac Type Severity Reaction Status Date / Time carbamazepine [From TEGRETOL] AdvReac Unknown NAUSEA & Verified 06/01/21 20:14 VOMITING Review of Systems Review of Systems: Constitutional : No Fever, No Chills ENT/Mouth : No Ear Pain, No Nasal Congestion, No sore throat Eyes: No Eye Pain, No Swelling, No Redness Cardiovascular : No Chest Pain, No SOB Respiratory : No Cough, No Sputum, No Dyspnea Gastrointestinal : No Nausea, No Vomiting, No Diarrhea, No Hematochezia, No Melena Genitourinary : No Dysuria, No Urinary Frequency, No Hematuria Musculoskeletal : No Myalgias Skin : No Skin Lesions, No rash Neuro : No Weakness, No Numbness, No Paresthesias, No Dizziness, No Headache Psych : positive Anxiety, positive Depression, positive SI no HI Heme/Lymph: No Lymphadenopathy Endocrine : No Polyuria, No Polydipsia All other systems reviewed and are negative PMFSH Past Medical History Attestation statement: The following information was validated with the patient. Medical History Acute post-traumatic stress disorder Adjustment disorder Anxiety Asthma Borderline personality disorder Chronic post-traumatic stress disorder (PTSD) COPD (chronic obstructive pulmonary disease) Depression GERD (gastroesophageal reflux disease) Increased BMI Injury, self-inflicted Intentional self-harm PTSD (post-traumatic stress disorder) Recurrent major depression-severe Schizoaffective disorder Self-harming behavior Suicidal ideation Suicidal ideation Social History Social History Household Members: Other Household Members Other:: housemates Housing: Other Housing Other:: residential home Do you presently have visiting nurse or other home services: Yes Alcohol intake: unknown Patient Tobacco Use Status: Former Tobacco user Quit Date: 02-19-21 Tobacco use type: Cigarette Cigarette Packs Per Day: 1 Cigarettes Per Day: 20.0 Years Smoked: 17 e-Cigarette/Vaping Use: Never Used Second Hand Smoke Exposure: Yes Substance Use Type: Marijuana and Opiates Advance Directives: No Patient : No service: No Sexual orientation: Did not discuss Physical Exam Vital Signs: Vital Signs: Last Vital Signs Temp 98.7 F 09/01/21 19:49 Pulse 96 09/01/21 19:49 Resp 16 09/01/21 19:49 BP 140/86 H 09/01/21 19:49 Pulse Ox 99 09/01/21 19:49 BMI result Body Mass Index 39.6 Appearance: Alert. Oriented X3. No acute distress. Anxious withdrawn Eyes: Pupils equal, round and reactive to light. ENT: Pharynx normal. superficial abrasion noted on forehead Neck: Normal inspection. Neck supple. CVS: Normal heart rate and rhythm. Pulses normal. Respiratory: No respiratory distress. Breath sounds normal. Abdomen: Soft and nontender. Skin: Skin warm and dry. Normal skin color. Normal skin turgor. Extremities: No lower extremity edema. No calf ttp Neuro: Oriented X 3. No motor deficit. No sensory deficit. CN 2-12 intact Course Course Course Narrative: patient escalating stating she is going to harm herself, security present at bedside, will not take oral medications at this time concern for her safety she is requesting IM medications herself for behavioral control - IM ativan and haldol ordered Physician observation started at 832pm Patient placed in physician observation because the patient needed more time for medication to work and to continue bed search. At the time observation was started the patient's vitals were stable, patient is alert and oriented but slightly agitated/anxious, Neuro: nonfocal, CV RRR, Lungs clear MDM - Psych MDM Narrative Medical decision making narrative: 36 yo female with hx of PTSD schizoaffective disorder here with c/o SI patient is a section 12 from community and bedsearch in progress at this time will need medical clearance does have small abrasion on forehead but no LOC no AC therapy and GCS 15. She is requesting IM medications to help control her behaviors. Planned bed search. Discharge Plan Discharge Clinical Impression: Suicidal ideation Patient Disposition: Still a Patient Prescriptions: No Action omeprazole 20 mg capsule,delayed release(DR/EC) 20 mg PO DAILY RF: 0 trazodone 50 mg Tablet 50 mg PO BEDTIME PRN (Reason: Insomnia) 30 Days Qty: 30 RF: 0 cetirizine 10 mg Tablet 10 mg PO DAILY RF: 0 prazosin 2 mg Capsule 5 mg PO BEDTIME RF: 0 haloperidol decanoate [Haldol Decanoate] 100 mg/mL solution 100 mg IM Q4W RF: 0 diphenhydramine HCl 50 mg Capsule 50 mg PO BEDTIME PRN (Reason: Insomnia) RF: 0 lorazepam 1 mg tablet 1 mg PO TID PRN (Reason: Anxiety/Restlessness ) RF: 0 albuterol sulfate [Ventolin HFA] 90 mcg/actuation HFA aerosol inhaler 2 puff inhalation Q4H PRN (Reason: wheezing) RF: 0 topiramate 25 mg tablet 1 tab PO BID RF: 0 mirtazapine 15 mg tablet 1 tab PO BEDTIME RF: 0 fluticasone propion-salmeterol [Advair Diskus] 250-50 mcg/dose blister with device 1 puff inhalation BID RF: 0 ferrous sulfate 325 mg (65 mg iron) tablet,delayed release (DR/EC) 1 tab PO QAM RF: 0 duloxetine 60 mg capsule,delayed release(DR/EC) 1 cap PO QAM RF: 0 acetaminophen 325 mg Tablet 650 mg PO Q6H PRN (Reason: Headache/Pain Mild Scale (1-3)) Qty: 0 RF: 0 nicotine (polacrilex) [Nicorette] 2 mg gum 2 mg buccal Q2H 30 Days Qty: 100 RF: 0 clonidine HCl 0.1 mg Tablet 0.1 mg PO BID PRN (Reason: anxiety) 30 Days Qty: 60 RF: 0 lithium carbonate 300 mg tablet 2 tab PO BEDTIME RF: 0 Vraylar 3 mg capsule 4.5 mg PO DAILY RF: 0
[2021-09-01 19:49] VITALS: BP 140/86; PULSE 96; RESP 16; TEMP 37.1; O2SAT 99; BMI 39.6
[2021-09-01 20:20] VITALS: RESP 16
[2021-09-01] MEDS: LORazepam 2 MG/ML VIAL IM (20:20)
[2021-09-01] MEDS: Haloperidol Lactate 5 MG/ML VIAL IM (20:20)
[2021-09-01 20:35] VITALS: RESP 16
[2021-09-01 20:44] LABS: UPreg QC Valid YES; Urine Pregnancy NEGATIVE (NEGATIVE)
[2021-09-01 20:50] VITALS: RESP 16
[2021-09-01 20:57] LABS: COVID-19 Test Negative (Negative)
[2021-09-01 21:04] LABS: Amphetamine Screen Urine Not Detected (Not Detect); Barbiturates, Urine Not Detected (Not Detect); Benzodiazepines Screen Urine Not Detected (Not Detect); Cannabinoid Screen Urine POSITIVE (Not Detect); Cocaine Screen Urine Not Detected (Not Detect); Fentanyl, urine POSITIVE (Not Detect); Opiate Screen Urine Not Detected (Not Detect); Phencyclidine Screen Urine Not Detected (Not Detect)
[2021-09-01 21:05] VITALS: RESP 17
[2021-09-01 21:20] VITALS: RESP 16
--- NOTE | 2021-09-01 21:40 | PHA.MEDREC ---
Pharmacy Consult ? Medication Reconciliation Pharmacy has completed the medication reconciliation. list from facility
--- NOTE | 2021-09-02 | ECG_ITS ---
Test Reason : cp Blood Pressure : / mmHG Vent. Rate : 074 BPM Atrial Rate : 074 BPM P-R Int : 142 ms QRS Dur : 072 ms QT Int : 412 ms P-R-T Axes : 061 076 031 degrees QTc Int : 457 ms Normal sinus rhythm Normal ECG When compared with ECG of 26-JUL-2021 19:23, No significant change was found Referred By: Aaron Diaz Electronically Signed By:Phillip Alex
--- NOTE | 2021-09-02 06:41 | PC.NURSE ---
Patient slept through the night, no distress observed/reported, patient is 1:1 for observation for safety, patient was banging back of her head hard on the wall, security helped to keep her safe, provider ordered Ativan 2 mg IM and Haldol 5 mg IM, administered at 2019 with + effect, patient was screened by [facility] in the community, deposition is voluntary inpatient bed search, med rec completed/pending provider's approval, VSS, will continue to monitor.
--- NOTE | 2021-09-02 07:30 | PC.NURSE ---
patient appears to remain asleep at present respirations are even and unlabored, patient appears in no distress
[2021-09-02] MEDS: Omeprazole 20 MG CAPSULE.DR PO (11:11)
[2021-09-02] MEDS: DULoxetine HCl 60 MG CAPSULE.DR PO (11:11)
[2021-09-02] MEDS: Topiramate 25 MG TABLET PO ×2 (11:11→23:19)
[2021-09-02] MEDS: Cariprazine HCl 3 MG CAPSULE 6 MG PO (11:11)
[2021-09-02] MEDS: Loratadine 10 MG TABLET PO (11:11)
[2021-09-02] MEDS: LORazepam 1 MG TABLET 2 MG PO (11:25)
[2021-09-02] MEDS: LORazepam 1 MG TABLET PO ×2 (12:42→17:20)
[2021-09-02] MEDS: hydrOXYzine HCL 50 MG TABLET PO ×2 (12:42→17:20)
[2021-09-02] MEDS: HaloperidoL 5 MG TABLET PO ×3 (12:42→23:19)
[2021-09-02 18:48] LABS: MANUAL DIFF FLAG NO
[2021-09-02 18:54] LABS: Basophils Percent Auto 0.3 % (0-2); Eosinophils Absolute Auto 0.1 X10*3/uL (0.0-0.4); Eosinophils Percent Auto 0.7 % (0-4); Hematocrit 36.3 % (37.0-47.0); Hemoglobin 11.4 g/dl (12.0-16.0); Imm Gran Abs Auto 0.01 X10*3/uL (0.00-0.03); Imm Gran Pct Auto 0.1 % (0.0-0.4); Lymphocytes Absolute Auto 2.4 X10*3/uL (1.2-4.9); Lymphocytes Percent Auto 32.9 % (20-40); Mean Corpuscular HGB Conc 31.4 g/dl (31.0-35.0); Mean Corpuscular Hemoglobin 26.4 pg (27.0-33.0); Mean Platelet Volume 11.6 fL (9.4-12.3); Monocytes Absolute Auto 0.4 X10*3/uL (0.1-1.2); Monocytes Percent Auto 5.3 % (2-11); Neutrophils Absolute Auto 4.5 x10*3/uL (2.0-8.3); Neutrophils Percent Auto 60.7 % (45-73); Platelet Count 320 X10*3/uL (160-400); Red Blood Count 4.32 X10*6/uL (4.20-5.50); Red Cell Distribution Width 16.3 % (11.0-16.0); White Blood Count 7.4 X10*3/uL (4.8-10.8)
[2021-09-02 19:07] LABS: Alanine Aminotransferase 10 U/L (0-31); Albumin Level 3.6 g/dL (3.5-5.0); Alkaline Phosphatase 62 U/L (39-117); Anion Gap 10 (12-20); Aspartate Amino Transferase 15 U/L (5-31); Bilirubin Total 0.2 mg/dL (0.0-1.0); Blood Urea Nitrogen 9 mg/dL (9-16); Carbon Dioxide 20 mmol/L (22-29); Chloride 114 mmol/L (96-108); Creatinine Clr Calc Pharmacy 107.4; Estimated Glomerular Filt Rate > 60; Glucose Random 110 mg/dL (60-115); Potassium 4.2 mmol/L (3.3-5.1); Sodium 140 mmol/L (135-145); Total Protein 6.2 g/dL (6.5-8.0)
[2021-09-02 19:09] LABS: COVID-19 Test Negative (Negative); IDNOW Serial# 9DD0AD1C
[2021-09-02] MEDS: Prazosin HCL 1 MG CAPSULE 5 MG PO (23:18)
[2021-09-02] MEDS: traZODone HCL 100 MG TABLET PO (23:19)
[2021-09-02] MEDS: Lithium Carbonate 300 MG CAPSULE 600 MG PO (23:19)
[2021-09-03 04:22] VITALS: BP 121/80; PULSE 81; RESP 17; TEMP 36.8; O2SAT 99
[2021-09-03] MEDS: LORazepam 1 MG TABLET PO ×4 (06:00→20:26)
[2021-09-03] MEDS: hydrOXYzine HCL 50 MG TABLET PO ×2 (06:00→20:25)
--- NOTE | 2021-09-03 06:17 | PC.NURSE ---
Patient slept through the night, no distress observed/reported, behavior appropriate, pending M3 admission, med compliant, prn Ativan 1 mg and Hydroxyzine 50 mg administered in the morning, vss, will continue to monitor.
--- NOTE | 2021-09-03 07:22 | PC.NURSE ---
patient appears to remain asleep at present respirations are even and unlabored patient appears in no distress
[2021-09-03] MEDS: HaloperidoL 5 MG TABLET PO ×4 (08:40→20:24)
[2021-09-03] MEDS: Omeprazole 20 MG CAPSULE.DR PO (08:40)
[2021-09-03] MEDS: DULoxetine HCl 60 MG CAPSULE.DR PO (08:40)
[2021-09-03] MEDS: Loratadine 10 MG TABLET PO (08:40)
[2021-09-03] MEDS: Cariprazine HCl 3 MG CAPSULE 6 MG PO (08:40)
[2021-09-03] MEDS: Topiramate 25 MG TABLET PO ×2 (08:41→20:26)
--- NOTE | 2021-09-03 15:47 | PC.ADMIT ---
PT admitted to unit from [facility] ED on a conditional voluntary with a diagnosis of PTSD and Borderline personality disorder after her ACCS program staff called EMS due to SI, SIB and command hallucinations. Upon arrival to unit pt is calm and cooperative. PT reports that she has been struggling more lately because her sister is running from [place] with her nephews and life just sucks . Pt reports that her adoptive mother recently told her that it is going to be her biological mothers birthday soon and that this was triggering and overwhelming . Pt continue to endorse SI stating i'm going to do it tonight multiple times, pt declined to state what her plan is stating that she was going to hang herself and something . PT has healing superficial wounds to both arms and a laceration on her forehead from banging her head. PT states she no longer has [facility] services because her worker recently retired. PT stating that she is due to ECT next wednesday and does not want to miss that but then stating i'll be anyway so I don't know why i'm worried PT is calm and cooperative with admission, able to use humor at times. PT on 1:1 for safety.
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
[2021-09-03] MEDS: Albuterol Sulfate 90 MCG 8 GM INHALER 2 PUFF INHALE (17:51)
[2021-09-03 20:15] VITALS: BP 129/88; PULSE 82; TEMP 36.7; O2SAT 98
[2021-09-03] MEDS: Prazosin HCL 1 MG CAPSULE 5 MG PO (20:26)
[2021-09-03] MEDS: Lithium Carbonate 300 MG CAPSULE 600 MG PO (20:26)
[2021-09-03 20:30] VITALS: BP 140/76; PULSE 85; O2SAT 97
[2021-09-03 20:45] VITALS: BP 136/77; PULSE 82; O2SAT 97
[2021-09-03 21:00] VITALS: BP 136/76; PULSE 80; O2SAT 97
--- NOTE | 2021-09-03 22:12 | PM.EVENT ---
Event Note Date of Service: 09/03/21 Event Note: Patient restrained with restraint chair at 20:00 due to head banging behavior. Patient was alert and oriented, cooperative with restraint despite acute distress. There was no need for medication restraint. Pt assessed by hospitalist, no concerns with circulation or sensation of extremities, ROM intact. Pt's vitals monitored and offered food and fluids. She was released after 50 minutes once she felt in behavioral control and pt stated she felt safe.
--- NOTE | 2021-09-04 01:00 | PC.NURSE ---
Chair restraint use on 09/03/21 @ 1999. A call for help was requested by 1:1 staff person as patient had put herself on the bathroom floor and began to bang her head. Patient crying. Banging would not stop despite prompts and barriers to prevent (putting pillows on the ground) when patient offered restraint chair to stop behavior stated ''yes'' Patient was cooperative with staff in getting off of the floor and in sitting in restraint chair. patient stated ''I hate myself'' ''I only want to hurt me, I won't hurt anyone else'' patient reporting +a/v hallucinations. patient allowed for administration of po medications, vital signs and assessment done by the hospitalist. patient was released after 50 minutes of chair use when she reported ''right now I can hold it together'' ''I get very scared when I hear voices, sometimes I just don't care what happens'' continues on 1:1 staffing. does have open cut on forehead, patient had prior to admission. area cleaned and dressed. ''It hurts but I'm used to it'' offered but declined anything for the pain reporting ''sometimes I need to feel a little pain to remind me I'm alive'' When discussing incident after release patient identified feeling safe in chair and that staff should offer the chair when trying to harm herself'' after release from chair patient was visible in milieu and had a snack and fluids.
[2021-09-04] MEDS: HaloperidoL 5 MG TABLET PO ×4 (03:08→17:18)
[2021-09-04] MEDS: LORazepam 1 MG TABLET PO ×4 (03:08→17:18)
[2021-09-04] MEDS: Acetaminophen 325 MG TABLET 650 MG PO (03:08)
[2021-09-04] MEDS: traZODone HCL 100 MG TABLET PO (03:08)
[2021-09-04 07:00] VITALS: BMI 47.2
[2021-09-04 09:30] VITALS: PULSE 100; RESP 16; TEMP 36.6; O2SAT 98
[2021-09-04] MEDS: Fluticasone/Vilanterol 100/25 BLST.W.DEV 1 PUFF INHALE (09:44)
[2021-09-04] MEDS: Cariprazine HCl 3 MG CAPSULE 6 MG PO (09:45)
[2021-09-04] MEDS: Topiramate 25 MG TABLET PO ×2 (09:46→21:57)
[2021-09-04] MEDS: Omeprazole 20 MG CAPSULE.DR PO (09:46)
[2021-09-04] MEDS: DULoxetine HCl 60 MG CAPSULE.DR PO (09:46)
[2021-09-04] MEDS: Loratadine 10 MG TABLET PO (09:46)
[2021-09-04] MEDS: hydrOXYzine HCL 50 MG TABLET PO ×2 (12:05→19:48)
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
--- NOTE | 2021-09-04 16:28 | HO.PM.IMCN ---
History of Present Illness Data of Consult Service Date: 09/04/21 Primary Care Provider: Carroll Gaviria MD HPI Reason for consult: ECT eval 36-year-old female with history of asthma, smoking, depression, fPTSD, frequent Psych admissions. Was just discharged earlier this months and at that received ECT treatment. She is addmitted yet again with SI and ECT is again plan. There has not been any interim change since last ECT. She has no acute medical complant. Recent ECG is normal. There was a sitter present during my evaluation Review of Systems Review of Systems: Gen: no fever Resp: no sob, no cough CV: no chest, no CHEATHAM, no leg edema GI: No n/v, no abd pain Neuro: No confusion, Psych: SI Yes all other systems are reviewed and are negative [facility] Medical History Acute post-traumatic stress disorder Adjustment disorder Anxiety Asthma Borderline personality disorder Chronic post-traumatic stress disorder (PTSD) COPD (chronic obstructive pulmonary disease) Depression GERD (gastroesophageal reflux disease) Increased BMI Injury, self-inflicted Intentional self-harm PTSD (post-traumatic stress disorder) Recurrent major depression-severe Schizoaffective disorder Self-harming behavior Suicidal ideation Suicidal ideation Social History Household Members: Other Household Members Other:: fpc Housing: Apartment Housing Other:: residential home Do you presently have visiting nurse or other home services: No Alcohol intake: unknown Patient Tobacco Use Status: Former Tobacco user Quit Date: 02-19-21 Tobacco use type: Cigarette Cigarette Packs Per Day: 1 Cigarettes Per Day: 20.0 Years Smoked: 17 e-Cigarette/Vaping Use: Never Used Second Hand Smoke Exposure: Yes Use of substances other than those prescribed or required for medical reasons: No Substance Use Type: Marijuana and Opiates Currently Displaying Signs/Symptoms of Drug Intoxication Withdrawal: No Spiritual Healthcare Practices: n/a L[employer] Day Healthcare Practices: n/a Cultural Healthcare Practices: n/a Advance Directives: No Do you have thoughts of harming others: None Do you have a plan to hurt others: No Plan Recently lost weight without trying: No Nutrition Risks: No Nutritional Risk Patient : No : No Poor oral hygiene: No service: No Sexual orientation: Did not discuss Meds Allergies Allergy/AdvReac Type Severity Reaction Status Date / Time carbamazepine [From TEGRETOL] AdvReac Unknown NAUSEA & Verified 06/01/21 20:14 VOMITING Active Medications: Current Medications Acetaminophen (Acetaminophen 325 Mg Tablet) 650 mg PO Q6H PRN PRN Reason: Pain (Scale Score 1-3) Last Admin: 09/04/21 03:08 Dose: 650 mg Documented by: Al Hydroxide/Mg Hydroxide (Magnesium Hydrox/Alum Hydrox 30 Ml Oral.Susp) 30 ml PO Q6H PRN PRN Reason: Heartburn/Nausea Albuterol Sulfate (Albuterol Sulfate (0.083%) 2.5 Mg/3 Ml Vial.Neb) 2.5 mg INHALE Q4H PRN PRN Reason: Shortness Of Breath Albuterol Sulfate (Albuterol Sulfate 90 Mcg 8 Gm Inhaler) 2 puff INHALE Q4H PRN PRN Reason: Wheezing Last Admin: 09/03/21 17:51 Dose: 2 puff Documented by: Cariprazine (Cariprazine Hcl 3 Mg Capsule) 6 mg PO DAILY [facility] Last Admin: 09/04/21 09:45 Dose: 6 mg Documented by: Duloxetine HCl (Duloxetine Hcl 60 Mg Capsule.Dr) 60 mg PO DAILY [facility] Last Admin: 09/04/21 09:46 Dose: 60 mg Documented by: Fluticasone/Vilanterol (Fluticasone/Vilanterol 100/25 Blst.W.Dev) 1 puff INHALE RDAILY [facility] Last Admin: 09/04/21 09:44 Dose: 1 puff Documented by: Haloperidol (Haloperidol 5 Mg Tablet) 5 mg PO Q4H PRN PRN Reason: Agitation Haloperidol Decanoate (Haloperidol Decanoate 50 Mg/Ml Ampul) 100 mg IM Q28D [facility] Hydroxyzine HCl (Hydroxyzine Hcl 50 Mg Tablet) 50 mg PO BID PRN PRN Reason: anxiety Last Admin: 09/04/21 12:05 Dose: 50 mg Documented by: [place] Carbonate ([place] Carbonate 300 Mg Capsule) 600 mg PO BEDTIME [facility] Last Admin: 09/03/21 20:26 Dose: 600 mg Documented by: Loratadine (Loratadine 10 Mg Tablet) 10 mg PO DAILY [facility] Last Admin: 09/04/21 09:46 Dose: 10 mg Documented by: Lorazepam (Lorazepam 1 Mg Tablet) 1 mg PO Q4H PRN PRN Reason: agitation Magnesium Hydroxide (Milk Of Magnesia 30 Ml Oral.Susp) 30 ml PO DAILY PRN PRN Reason: Constipation Nicotine Polacrilex (Nicotine Polacrilex 2 Mg Gum) 2 mg BUCCAL Q2H PRN PRN Reason: nicotine cravings Omeprazole (Omeprazole 20 Mg Capsule.) 20 mg PO DAILY [facility] Last Admin: 09/04/21 09:46 Dose: 20 mg Documented by: Prazosin HCl (Prazosin Hcl 1 Mg Capsule) 5 mg PO BEDTIME [facility]; Protocol Last Admin: 09/03/21 20:26 Dose: 5 mg Documented by: Silver Sulfadiazine (Silver Sulfadiazine 1 % Cream 20 Gm Tube) 1 appl TOPICAL BID [facility] Sumatriptan Succinate (Sumatriptan Succinate 50 Mg Tablet) 50 mg PO DAILY PRN PRN Reason: Migraine Headache Topiramate (Topiramate 25 Mg Tablet) 25 mg PO BID [facility] Last Admin: 09/04/21 09:46 Dose: 25 mg Documented by: Trazodone HCl (Trazodone Hcl 100 Mg Tablet) 100 mg PO BEDTIME PRN PRN Reason: Insomnia Last Admin: 09/04/21 03:08 Dose: 100 mg Documented by: Home Medications Medication Instructions Recorded Confirmed Last Taken Type omeprazole 20 mg capsule,delayed 20 mg PO DAILY 11/29/20 09/01/21 08/02/21 07:00 History release cetirizine 10 mg tablet 10 mg PO DAILY 12/24/20 09/01/21 08/02/21 08:00 History haloperidol decanoate 100 mg/mL 100 mg IM Q4W 03/30/21 09/01/21 08/16/21 History intramuscular solution (Haldol Decanoate) lorazepam 1 mg tablet 1 mg PO TID PRN 03/30/21 09/01/21 08/01/21 20:00 History prazosin 2 mg capsule 5 mg PO BEDTIME 03/30/21 09/01/21 08/01/21 20:00 History cariprazine 3 mg capsule (Vraylar) 6 mg PO DAILY 07/18/21 09/01/21 08/02/21 08:00 History fluticasone 250 mcg-salmeterol 50 1 puff INHALATION BID 08/02/21 09/01/21 08/02/21 08:00 History mcg/dose blistr powdr for inhalation (Advair Diskus) topiramate 25 mg tablet 1 tab PO BID 08/02/21 09/01/21 08/02/21 07:00 History duloxetine 60 mg capsule,delayed 1 cap PO QAM 08/03/21 09/01/21 08/02/21 08:00 History release lithium carbonate 300 mg tablet 2 tab PO BEDTIME 08/30/21 09/01/21 Unknown History acetaminophen 500 mg tablet 500 mg PO Q6H PRN 09/01/21 09/01/21 Unknown History albuterol sulfate 2.5 mg INHALATION Q4H PRN 09/01/21 09/01/21 Unknown History albuterol sulfate 90 mcg/actuation 2 inh INHALATION Q4H PRN 09/01/21 09/01/21 Unknown History breath activated powder inhaler (ProAir RespiClick) haloperidol 5 mg tablet 1 tab PO BID PRN 09/01/21 09/01/21 Unknown History hydroxyzine pamoate 50 mg capsule 1 cap PO BID PRN 09/01/21 09/01/21 Unknown History ibuprofen 600 mg tablet 600 mg PO Q8H PRN 09/01/21 09/01/21 Unknown History sumatriptan succinate 50 mg tablet 50 mg PO DAILY PRN 09/01/21 09/01/21 Unknown History trazodone 50 mg tablet 100 mg PO BEDTIME PRN 09/01/21 09/01/21 Unknown History Physical Exam Vital Signs and Narrative: Vital Signs: Last Vital Signs Temp 97.9 F 09/04/21 09:30 Pulse 100 09/04/21 09:30 Resp 16 09/04/21 09:30 BP 136/76 09/03/21 21:00 Pulse Ox 98 09/04/21 09:30 BMI result Body Mass Index 39.6 Const: Other: Constitutional: Alert, in no distress, overweight. Mental Status: Oriented to person, place and time. Respiratory: Clear to auscultation. No wheezing, rales or rhonchi. Cardiovascular: S1 S2 regular. No murmurs, rubs or gallops. Gastrointestinal: Abdomen soft, non-tender, non-distended. Normal bowel sounds.? Neurologic: Cranial nerves II-XII grossly intact. No focal neurological deficits. Moves all extremities spontaneously.? Skin: No rashes or lesions.? She has brusise on forhead from baging head against wall, no evidence of infection Musculoskeletal: No cyanosis or clubbing. Psychiatric: SI Results Labs CBC and Chem 7: 09/02/21 18:38 09/02/21 18:38 Assessment and Plan (1) Pre-op evaluation: Status: Acute 36-year-old female with history of asthma, smoking, depression, PTSD, frequent Psych admissions. Was just discharged earlier this months and at that received ECT treatment. She is addmitted yet again with SI and ECT is again plan. There has not been any interim change since last ECT on 08/20/21. She has no acute medical complant. Recent ECG is channing. Rec: No further testing needed at this time to proceed to ED. Follow standard ECT protocol. Thanks
[2021-09-04] MEDS: Silver Sulfadiazine 1 % Cream 20 GM TUBE 1 APPL TOPICAL (17:20)
[2021-09-04 21:45] VITALS: BP 105/60; PULSE 78; RESP 16; TEMP 36.6; O2SAT 95
[2021-09-04] MEDS: Prazosin HCL 1 MG CAPSULE 5 MG PO (21:56)
[2021-09-04] MEDS: Lithium Carbonate 300 MG CAPSULE 600 MG PO (21:57)
[2021-09-05] MEDS: LORazepam 1 MG TABLET PO ×3 (07:23→14:33)
[2021-09-05 08:36] VITALS: BP 121/68; PULSE 81; TEMP 36.4; O2SAT 97
[2021-09-05] MEDS: Loratadine 10 MG TABLET PO (09:02)
[2021-09-05] MEDS: Cariprazine HCl 3 MG CAPSULE 6 MG PO (09:02)
[2021-09-05] MEDS: DULoxetine HCl 60 MG CAPSULE.DR PO (09:02)
[2021-09-05] MEDS: Omeprazole 20 MG CAPSULE.DR PO (09:02)
[2021-09-05] MEDS: Topiramate 25 MG TABLET PO ×2 (09:03→22:00)
[2021-09-05] MEDS: Fluticasone/Vilanterol 100/25 BLST.W.DEV 1 PUFF INHALE (09:04)
[2021-09-05] MEDS: HaloperidoL 5 MG TABLET PO ×2 (10:48→14:33)
--- NOTE | 2021-09-05 13:02 | P.PNPSI_ITS ---
Subjective Subjective Date of Service: 09/05/21 Reason For Visit: SI Interim History: pt seen in group room, 1:1 by her side. reports she is doing much better than yesterday in terms of impulses to self-harm. coping skills reviewed, pt indicates she is doing things to try to occupy her mind, such as coloring, watching pilar movies, to avoid self-harm. CAH to self-harm. discuss that she is starting ECT on wednesday. she is concerned vraylar is exacerbating her mood disorder and self-harm tendencies and requests MD speak with her outpt provider, Dr. Evans, at [facility]. per staff, CAH to self harm continue. eating well, napping yesterday.using ice for grounding. got haldol/ativan x3 yesterday. SI with plan to hang self or smash head into hard object. working on new coping skills. Mental Status Exam Mental Status Exam Narrative: appropriately dressed and groomed, many scars from cutting across forearms, some lacerations in various stages of healing. bandage on her forehead. PMA of clear motor tension in the arms/hands/fingers. hand tremor noted, course, non-parkinsonian. cooperative with interview. speech nml in rate, tone, latency. decr loudness and amount. thoughts linear and logical. affect constricted, appropriate to context, normo-intense, non-labile. +SI. denies HI/VH. endorses CAH to self-harm. Diagnostics Vital Signs (24Hr): Vital Signs - 24 hr 09/04/21 21:45 09/05/21 08:36 Temperature 97.9 F 97.6 F Pulse Rate 78 81 Respiratory Rate 16 Blood Pressure 105/60 121/68 Pulse Oximetry 95 97 BMI result Body Mass Index 47.2 Labs Results: 09/02/21 18:38 09/02/21 18:38 Medications Medications Current Medications Acetaminophen (Acetaminophen 325 Mg Tablet) 650 mg PO Q6H PRN PRN Reason: Pain (Scale Score 1-3) Last Admin: 09/04/21 03:08 Dose: 650 mg Documented by: Al Hydroxide/Mg Hydroxide (Magnesium Hydrox/Alum Hydrox 30 Ml Oral.Susp) 30 ml PO Q6H PRN PRN Reason: Heartburn/Nausea Albuterol Sulfate (Albuterol Sulfate (0.083%) 2.5 Mg/3 Ml Vial.Neb) 2.5 mg INHALE Q4H PRN PRN Reason: Shortness Of Breath Albuterol Sulfate (Albuterol Sulfate 90 Mcg 8 Gm Inhaler) 2 puff INHALE Q4H PRN PRN Reason: Wheezing Last Admin: 09/03/21 17:51 Dose: 2 puff Documented by: Cariprazine (Cariprazine Hcl 3 Mg Capsule) 6 mg PO DAILY [facility] Last Admin: 09/05/21 09:02 Dose: 6 mg Documented by: Docusate Sodium (Docusate Sodium 100 Mg Capsule) 100 mg PO BEDTIME PRN PRN Reason: Constipation Duloxetine HCl (Duloxetine Hcl 60 Mg Capsule.Dr) 60 mg PO DAILY [facility] Last Admin: 09/05/21 09:02 Dose: 60 mg Documented by: Fluticasone/Vilanterol (Fluticasone/Vilanterol 100/25 Blst.W.Dev) 1 puff INHALE RDAILY [facility] Last Admin: 09/05/21 09:04 Dose: 1 puff Documented by: Haloperidol (Haloperidol 5 Mg Tablet) 5 mg PO Q4H PRN PRN Reason: Agitation Last Admin: 09/05/21 10:48 Dose: 5 mg Documented by: Haloperidol Decanoate (Haloperidol Decanoate 50 Mg/Ml Ampul) 100 mg IM Q28D [facility] Hydroxyzine HCl (Hydroxyzine Hcl 50 Mg Tablet) 50 mg PO BID PRN PRN Reason: anxiety Last Admin: 09/04/21 19:48 Dose: 50 mg Documented by: Lactic Acid (Ammonium Lactate 12 % Cream 140 Gm Tube) 1 appl TOPICAL BID PRN; Protocol PRN Reason: Dry Skin [employer] Carbonate ([employer] Carbonate 300 Mg Capsule) 600 mg PO BEDTIME [facility] Last Admin: 09/04/21 21:57 Dose: 600 mg Documented by: Loratadine (Loratadine 10 Mg Tablet) 10 mg PO DAILY [facility] Last Admin: 09/05/21 09:02 Dose: 10 mg Documented by: Lorazepam (Lorazepam 1 Mg Tablet) 1 mg PO Q4H PRN PRN Reason: agitation Last Admin: 09/05/21 10:48 Dose: 1 mg Documented by: Magnesium Hydroxide (Milk Of Magnesia 30 Ml Oral.Susp) 30 ml PO DAILY PRN PRN Reason: Constipation Nicotine Polacrilex (Nicotine Polacrilex 2 Mg Gum) 2 mg BUCCAL Q2H PRN PRN Reason: nicotine cravings Omeprazole (Omeprazole 20 Mg Jojo.) 20 mg PO DAILY [facility] Last Admin: 09/05/21 09:02 Dose: 20 mg Documented by: Prazosin HCl (Prazosin Hcl 1 Mg Capsule) 5 mg PO BEDTIME [facility]; Protocol Last Admin: 09/04/21 21:56 Dose: 5 mg Documented by: Silver Sulfadiazine (Silver Sulfadiazine 1 % Cream 20 Gm Tube) 1 appl TOPICAL BID [facility] Last Admin: 09/04/21 22:06 Dose: Not Given Documented by: Sumatriptan Succinate (Sumatriptan Succinate 50 Mg Tablet) 50 mg PO DAILY PRN PRN Reason: Migraine Headache Topiramate (Topiramate 25 Mg Tablet) 25 mg PO BID [facility] Last Admin: 09/05/21 09:03 Dose: 25 mg Documented by: Trazodone HCl (Trazodone Hcl 100 Mg Tablet) 100 mg PO BEDTIME PRN PRN Reason: Insomnia Last Admin: 09/04/21 03:08 Dose: 100 mg Documented by: Allergies Allergies Allergy/AdvReac Type Severity Reaction Status Date / Time carbamazepine [From TEGRETOL] AdvReac Unknown NAUSEA & Verified 06/01/21 20:14 VOMITING Assessment & Plan Assessment & Plan (1) Suicidal ideation: Status: Acute Code(s): R45.851 - Suicidal ideations Assessment and Plan: ongoing (2) Chronic post-traumatic stress disorder (PTSD): Status: Chronic Code(s): F43.12 - Post-traumatic stress disorder, chronic Assessment and Plan: continue outpt meds for now (3) Lacerations of multiple sites of right arm: Status: Acute Code(s): S41.111A - Laceration without foreign body of right upper arm, initial encounter Assessment and Plan: healing well (4) Borderline personality disorder: Status: Chronic Code(s): F60.3 - Borderline personality disorder Assessment and Plan: short hospitalization if possible. Assessment and Plan: 1:1 for safety. continue home medications. medically cleared for ECT. next haldol decanoate shot due 09/16. haldol 5 and ativan 1 PRNs for agitation. ECT wednesday - NPO after 7 pm on wednesday. contact Dr. Prabhakar of [facility] to discuss vraylar concern. I spent minutes with the patient and/or on the patient floor today, greater than?50% of which was spent counseling/coordinating care. Reason for contiued inpatient stay Substantial Risk for: harm to self, inability to function and rapid decompensation
--- NOTE | 2021-09-05 14:13 | PC.NURSE ---
Pt stated I feel like I'm having a herpes outbreak and complained about discomfort in her vaginal area. Pt stated it felt uncomfortable when I wiped and described it as a burning sensation. This RN examined her aretha area, redness noted on the inside of her thighs to her buttocks. Pt complained of itchiness in this area. No abrasions or lesions noted.
[2021-09-05] MEDS: LORazepam 2 MG/ML VIAL 1 MG IM (15:49)
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
--- NOTE | 2021-09-05 17:59 | P.EN_ITS ---
Event Note Date of Service: 09/05/21
--- NOTE | 2021-09-05 17:59 | PM.EVENT ---
Event Note Date of Service: 09/05/21
--- NOTE | 2021-09-05 18:21 | P.PNPSI_ITS ---
Subjective Subjective Date of Service: 09/05/21 Reason For Visit: SI Interim History: Documentation per protocol. Pt presented with dissociative features, head banging, requested restraint chair and IM ativan. She was released after 30 min and re-evaluated 60 min post restraint, was A&O x 4, found sitting up, wrapped in blanket, eating dinner and watching tv. She had full ROM in extremities, vital signs wnl. She was provided with food, fluids. Diagnostics Vital Signs (24Hr): Vital Signs - 24 hr 09/04/21 21:45 09/05/21 08:36 Temperature 97.9 F 97.6 F Pulse Rate 78 81 Respiratory Rate 16 Blood Pressure 105/60 121/68 Pulse Oximetry 95 97 BMI result Body Mass Index 47.2 Labs Results: 09/02/21 18:38 09/02/21 18:38 Medications Medications Current Medications Acetaminophen (Acetaminophen 325 Mg Tablet) 650 mg PO Q6H PRN PRN Reason: Pain (Scale Score 1-3) Last Admin: 09/04/21 03:08 Dose: 650 mg Documented by: Al Hydroxide/Mg Hydroxide (Magnesium Hydrox/Alum Hydrox 30 Ml Oral.Susp) 30 ml PO Q6H PRN PRN Reason: Heartburn/Nausea Albuterol Sulfate (Albuterol Sulfate (0.083%) 2.5 Mg/3 Ml Vial.Neb) 2.5 mg INHALE Q4H PRN PRN Reason: Shortness Of Breath Albuterol Sulfate (Albuterol Sulfate 90 Mcg 8 Gm Inhaler) 2 puff INHALE Q4H PRN PRN Reason: Wheezing Last Admin: 09/03/21 17:51 Dose: 2 puff Documented by: Cariprazine (Cariprazine Hcl 3 Mg Capsule) 6 mg PO DAILY [facility] Last Admin: 09/05/21 09:02 Dose: 6 mg Documented by: Docusate Sodium (Docusate Sodium 100 Mg Capsule) 100 mg PO BEDTIME PRN PRN Reason: Constipation Duloxetine HCl (Duloxetine Hcl 60 Mg Capsule.Dr) 60 mg PO DAILY [facility] Last Admin: 09/05/21 09:02 Dose: 60 mg Documented by: Fluticasone/Vilanterol (Fluticasone/Vilanterol 100/25 Blst.W.Dev) 1 puff INHALE RDAILY [facility] Last Admin: 09/05/21 09:04 Dose: 1 puff Documented by: Haloperidol (Haloperidol 5 Mg Tablet) 5 mg PO Q4H PRN PRN Reason: Agitation Last Admin: 09/05/21 14:33 Dose: 5 mg Documented by: Haloperidol Decanoate (Haloperidol Decanoate 50 Mg/Ml Ampul) 100 mg IM Q28D [facility] Hydroxyzine HCl (Hydroxyzine Hcl 50 Mg Tablet) 50 mg PO BID PRN PRN Reason: anxiety Last Admin: 09/04/21 19:48 Dose: 50 mg Documented by: Lactic Acid (Ammonium Lactate 12 % Cream 140 Gm Tube) 1 appl TOPICAL BID PRN; Protocol PRN Reason: Dry Skin [place] Carbonate ([place] Carbonate 300 Mg Capsule) 600 mg PO BEDTIME [facility] Last Admin: 09/04/21 21:57 Dose: 600 mg Documented by: Loratadine (Loratadine 10 Mg Tablet) 10 mg PO DAILY [facility] Last Admin: 09/05/21 09:02 Dose: 10 mg Documented by: Lorazepam (Lorazepam 1 Mg Tablet) 1 mg PO Q4H PRN PRN Reason: agitation Last Admin: 09/05/21 14:33 Dose: 1 mg Documented by: Magnesium Hydroxide (Milk Of Magnesia 30 Ml Oral.Susp) 30 ml PO DAILY PRN PRN Reason: Constipation Nicotine Polacrilex (Nicotine Polacrilex 2 Mg Gum) 2 mg BUCCAL Q2H PRN PRN Reason: nicotine cravings Omeprazole (Omeprazole 20 Mg Capsule.Dr) 20 mg PO DAILY [facility] Last Admin: 09/05/21 09:02 Dose: 20 mg Documented by: Prazosin HCl (Prazosin Hcl 1 Mg Capsule) 5 mg PO BEDTIME [facility]; Protocol Last Admin: 09/04/21 21:56 Dose: 5 mg Documented by: Silver Sulfadiazine (Silver Sulfadiazine 1 % Cream 20 Gm Tube) 1 appl TOPICAL BID [facility] Last Admin: 09/05/21 13:32 Dose: Not Given Documented by: Sumatriptan Succinate (Sumatriptan Succinate 50 Mg Tablet) 50 mg PO DAILY PRN PRN Reason: Migraine Headache Topiramate (Topiramate 25 Mg Tablet) 25 mg PO BID [facility] Last Admin: 09/05/21 09:03 Dose: 25 mg Documented by: Trazodone HCl (Trazodone Hcl 100 Mg Tablet) 100 mg PO BEDTIME PRN PRN Reason: Insomnia Last Admin: 09/04/21 03:08 Dose: 100 mg Documented by: Allergies Allergies Allergy/AdvReac Type Severity Reaction Status Date / Time carbamazepine [From TEGRETOL] AdvReac Unknown NAUSEA & Verified 06/01/21 20:14 VOMITING Assessment & Plan Assessment & Plan (1) Suicidal ideation: Status: Acute Code(s): R45.851 - Suicidal ideations Assessment and Plan: ongoing (2) Chronic post-traumatic stress disorder (PTSD): Status: Chronic Code(s): F43.12 - Post-traumatic stress disorder, chronic Assessment and Plan: continue outpt meds for now (3) Lacerations of multiple sites of right arm: Status: Acute Code(s): S41.111A - Laceration without foreign body of right upper arm, initial encounter Assessment and Plan: healing well (4) Borderline personality disorder: Status: Chronic Code(s): F60.3 - Borderline personality disorder Assessment and Plan: short hospitalization if possible. Assessment and Plan: 1:1 for safety. continue home medications. medically cleared for ECT. next haldol decanoate shot due 09/16. haldol 5 and ativan 1 PRNs for agitation. ECT wednesday - NPO after 7 pm on wednesday. contact Dr. Prabhakar of [facility] to discuss vraylar concern. I spent minutes with the patient and/or on the patient floor today, greater than?50% of which was spent counseling/coordinating care. Reason for contiued inpatient stay Substantial Risk for: harm to self, rapid decompensation and med/psych decompensation
[2021-09-05] MEDS: traZODone HCL 100 MG TABLET PO (22:00)
[2021-09-05] MEDS: Lithium Carbonate 300 MG CAPSULE 600 MG PO (22:00)
[2021-09-05] MEDS: hydrOXYzine HCL 50 MG TABLET PO (22:00)
[2021-09-05] MEDS: Prazosin HCL 5 MG CAPSULE PO (22:00)
[2021-09-05] MEDS: Albuterol Sulfate 90 MCG 8 GM INHALER 2 PUFF INHALE (22:02)
[2021-09-05] MEDS: Silver Sulfadiazine 1 % Cream 20 GM TUBE 1 APPL TOPICAL (22:04)
[2021-09-05 22:05] VITALS: BP 136/87; PULSE 80; TEMP 36.7; O2SAT 98
[2021-09-06 07:45] VITALS: BP 138/86; PULSE 98; RESP 18; TEMP 36.2; O2SAT 97
[2021-09-06 08:00] VITALS: BP 133/81; PULSE 104; RESP 18; TEMP 37; O2SAT 93
[2021-09-06] MEDS: Loratadine 10 MG TABLET PO (08:06)
[2021-09-06] MEDS: Cariprazine HCl 3 MG CAPSULE 6 MG PO (08:06)
[2021-09-06] MEDS: Omeprazole 20 MG CAPSULE.DR PO (08:07)
[2021-09-06] MEDS: DULoxetine HCl 60 MG CAPSULE.DR PO (08:07)
[2021-09-06] MEDS: LORazepam 1 MG TABLET PO ×4 (08:07→22:41)
[2021-09-06] MEDS: Topiramate 25 MG TABLET PO ×2 (08:07→19:52)
[2021-09-06] MEDS: HaloperidoL 5 MG TABLET PO ×5 (08:07→22:41)
[2021-09-06] MEDS: Ammonium Lactate 12 % Cream 140 GM TUBE 1 APPL TOPICAL (08:57)
[2021-09-06] MEDS: Fluticasone/Vilanterol 100/25 BLST.W.DEV 1 PUFF INHALE (09:07)
--- NOTE | 2021-09-06 15:47 | P.PNPSI_ITS ---
Subjective Subjective Date of Service: 09/06/21 Reason For Visit: SI Subjective Notes: Conditional Voluntary Medical Problems Affecting Mental Status: No Interim History: Discussed with staff. Noted complex history around PTSD, borderline personality disorder command hallucinations. Client reports today being hopeful for ECT as in the past she gets benefit after 3-4 sessions and then maintenance in the community. Is frustrated that ECT did not happen at the end of last week. Clearance is in place. Feels that she is being well cared for and supported by staff. Utilizing activities to distract self when distressed having thoughts of suicide or hallucinations. We did discuss increasing scheduled Haldol for hallucinations but not feeling sedate. And therefore continuing Ativan on a p.r.n. basis for anxiety, but not scheduled to minimize consistent sedation. Regarding hallucinations reports they are negative in nature and tell her to hurt herself. Has been buying her head at times. Again utilize the staff support and feels positive around same. Medication Compliance: Yes Side effects from medications: No Attending Groups: Yes Review of Systems Acute medical concerns: No Review of Systems Review of Systems No acute Mental Status Exam Mental Status Exam Narrative: pleasant and engaged. wearing pajamas. Appropriate hygiene. Organized. Depressed with SI. Command hallucinations. Doing well with staff support. Insight and judgment fair Diagnostics Vital Signs (24Hr): Vital Signs - 24 hr 09/05/21 22:05 09/06/21 08:00 Temperature 98.0 F 98.6 F Pulse Rate 80 104 H Respiratory Rate 18 Blood Pressure 136/87 133/81 Pulse Oximetry 98 93 BMI result Body Mass Index 47.2 Labs Results: 09/02/21 18:38 09/02/21 18:38 Medications Medications Current Medications Acetaminophen (Acetaminophen 325 Mg Tablet) 650 mg PO Q6H PRN PRN Reason: Pain (Scale Score 1-3) Last Admin: 09/04/21 03:08 Dose: 650 mg Documented by: Al Hydroxide/Mg Hydroxide (Magnesium Hydrox/Alum Hydrox 30 Ml Oral.Susp) 30 ml PO Q6H PRN PRN Reason: Heartburn/Nausea Albuterol Sulfate (Albuterol Sulfate (0.083%) 2.5 Mg/3 Ml Vial.Neb) 2.5 mg INHALE Q4H PRN PRN Reason: Shortness Of Breath Albuterol Sulfate (Albuterol Sulfate 90 Mcg 8 Gm Inhaler) 2 puff INHALE Q4H PRN PRN Reason: Wheezing Last Admin: 09/05/21 22:02 Dose: 2 puff Documented by: Bisacodyl (Bisacodyl 5 Mg Tablet.) 10 mg PO ONCE ONE Stop: 09/06/21 15:46 Cariprazine (Cariprazine Hcl 3 Mg Capsule) 6 mg PO DAILY [facility] Last Admin: 09/06/21 08:06 Dose: 6 mg Documented by: Docusate Sodium (Docusate Sodium 100 Mg Capsule) 100 mg PO BEDTIME PRN PRN Reason: Constipation Duloxetine HCl (Duloxetine Hcl 60 Mg Capsule.) 60 mg PO DAILY [facility] Last Admin: 09/06/21 08:07 Dose: 60 mg Documented by: Fluconazole (Fluconazole 150 Mg Tablet) 150 mg PO ONCE ONE Stop: 09/06/21 15:45 Fluticasone/Vilanterol (Fluticasone/Vilanterol 100/25 Blst.W.Dev) 1 puff INHALE RDAILY [facility] Last Admin: 09/06/21 09:07 Dose: 1 puff Documented by: Haloperidol (Haloperidol 5 Mg Tablet) 5 mg PO Q4H PRN PRN Reason: Agitation Last Admin: 09/06/21 12:24 Dose: 5 mg Documented by: Haloperidol Decanoate (Haloperidol Decanoate 50 Mg/Ml Ampul) 100 mg IM Q28D [facility] Hydroxyzine HCl (Hydroxyzine Hcl 50 Mg Tablet) 50 mg PO BID PRN PRN Reason: anxiety Last Admin: 09/05/21 22:00 Dose: 50 mg Documented by: Lactic Acid (Ammonium Lactate 12 % Cream 140 Gm Tube) 1 appl TOPICAL BID PRN; Protocol PRN Reason: Dry Skin Last Admin: 09/06/21 08:57 Dose: 1 appl Documented by: [place] Carbonate ([place] Carbonate 300 Mg Capsule) 600 mg PO BEDTIME [facility] Last Admin: 09/05/21 22:00 Dose: 600 mg Documented by: Loratadine (Loratadine 10 Mg Tablet) 10 mg PO DAILY [facility] Last Admin: 09/06/21 08:06 Dose: 10 mg Documented by: Lorazepam (Lorazepam 1 Mg Tablet) 1 mg PO Q4H PRN PRN Reason: agitation Last Admin: 09/06/21 12:24 Dose: 1 mg Documented by: Magnesium Hydroxide (Milk Of Magnesia 30 Ml Oral.Susp) 30 ml PO DAILY PRN PRN Reason: Constipation Nicotine Polacrilex (Nicotine Polacrilex 2 Mg Gum) 2 mg BUCCAL Q2H PRN PRN Reason: nicotine cravings Omeprazole (Omeprazole 20 Mg Capsule.Dr) 20 mg PO DAILY [facility] Last Admin: 09/06/21 08:07 Dose: 20 mg Documented by: Prazosin HCl (Prazosin Hcl 5 Mg Capsule) 5 mg PO BEDTIME [facility]; Protocol Last Admin: 09/05/21 22:00 Dose: 5 mg Documented by: Silver Sulfadiazine (Silver Sulfadiazine 1 % Cream 20 Gm Tube) 1 appl TOPICAL BID [facility] Last Admin: 09/06/21 09:52 Dose: Not Given Documented by: Sumatriptan Succinate (Sumatriptan Succinate 50 Mg Tablet) 50 mg PO DAILY PRN PRN Reason: Migraine Headache Topiramate (Topiramate 25 Mg Tablet) 25 mg PO BID [facility] Last Admin: 09/06/21 08:07 Dose: 25 mg Documented by: Trazodone HCl (Trazodone Hcl 100 Mg Tablet) 100 mg PO BEDTIME PRN PRN Reason: Insomnia Last Admin: 09/05/21 22:00 Dose: 100 mg Documented by: Valacyclovir HCl (Valacycyclovir Hcl 500 Mg Tablet) 500 mg PO DAILY [facility] Last Admin: 09/06/21 08:07 Dose: 500 mg Documented by: Allergies Allergies Allergy/AdvReac Type Severity Reaction Status Date / Time carbamazepine [From TEGRETOL] AdvReac Unknown NAUSEA & Verified 06/01/21 20:14 VOMITING Assessment & Plan Assessment & Plan (1) Suicidal ideation: Status: Acute Code(s): R45.851 - Suicidal ideations Assessment and Plan: ongoing (2) Chronic post-traumatic stress disorder (PTSD): Status: Chronic Code(s): F43.12 - Post-traumatic stress disorder, chronic Assessment and Plan: continue outpt meds for now (3) Lacerations of multiple sites of right arm: Status: Acute Code(s): S41.111A - Laceration without foreign body of right upper arm, initial encounter Assessment and Plan: healing well (4) Borderline personality disorder: Status: Chronic Code(s): F60.3 - Borderline personality disorder Assessment and Plan: short hospitalization if possible. Assessment and Plan: 1:1 for safety. continue home medications. medically cleared for ECT. next haldol decanoate shot due 09/16. haldol 5 and ativan 1 PRNs for agitation. ECT wednesday - NPO after 7 pm on wednesday. contact Dr. Prabhakar of [facility] to discuss everette concern. 09/06/2021: Noted ECT Wednesday as per team's plan above. Will schedule Haldol given p.r.n. needs. Complaining of Yeast infection and constipation and treatment for same scheduled. I spent minutes with the patient and/or on the patient floor today, great er than?50% of which was spent counseling/coordinating care. Reason for contiued inpatient stay Substantial Risk for: harm to self
[2021-09-06] MEDS: Fluconazole 150 MG TABLET PO (15:58)
[2021-09-06] MEDS: bisacodyL 5 MG TABLET.DR 10 MG PO (15:58)
[2021-09-06] MEDS: Acetaminophen 325 MG TABLET 650 MG PO (18:04)
[2021-09-06] MEDS: hydrOXYzine HCL 50 MG TABLET PO (19:51)
[2021-09-06] MEDS: Prazosin HCL 5 MG CAPSULE PO (19:52)
[2021-09-06] MEDS: Sennosides 8.6 MG TABLET 17.2 MG PO (19:52)
[2021-09-06] MEDS: Lithium Carbonate 300 MG CAPSULE 600 MG PO (19:52)
[2021-09-06] MEDS: traZODone HCL 100 MG TABLET PO (22:41)
[2021-09-07] MEDS: LORazepam 1 MG TABLET PO ×3 (05:17→18:51)
[2021-09-07] MEDS: HaloperidoL 5 MG TABLET PO ×5 (05:17→20:00)
[2021-09-07 08:30] VITALS: BP 127/87; PULSE 89; RESP 16; TEMP 36.9; O2SAT 96
[2021-09-07] MEDS: Fluticasone/Vilanterol 100/25 BLST.W.DEV 1 PUFF INHALE (08:37)
[2021-09-07] MEDS: DULoxetine HCl 60 MG CAPSULE.DR PO (08:38)
[2021-09-07] MEDS: Loratadine 10 MG TABLET PO (08:38)
[2021-09-07] MEDS: Omeprazole 20 MG CAPSULE.DR PO (08:38)
[2021-09-07] MEDS: Topiramate 25 MG TABLET PO (08:38)
[2021-09-07] MEDS: Cariprazine HCl 3 MG CAPSULE 6 MG PO (08:38)
[2021-09-07] MEDS: Silver Sulfadiazine 1 % Cream 20 GM TUBE 1 APPL TOPICAL ×2 (08:44→15:59)
[2021-09-07] MEDS: Ammonium Lactate 12 % Cream 140 GM TUBE 1 APPL TOPICAL ×2 (08:44→15:59)
--- NOTE | 2021-09-07 12:16 | P.PNPSI_ITS ---
Subjective Subjective Date of Service: 09/07/21 Reason For Visit: SI Subjective Notes: Conditional Voluntary Interim History: Discussed with staff. Noted complex history around PTSD, borderline personality disorder command hallucinations. Nursing also clarified that ECT is scheduled tomorrow. Client continues to be hopeful for ECT as in the past she gets benefit after 3-4 sessions and then maintenance in the community. Did dissoaiteg alot last night with some head banging. Slept well. Feels that she is being well cared for and supported by staff. Discussed utilizing activities to distract self when distressed having thoughts of suicide or hallucinations. Tolerating increased scheduled haldol dosing. Feels that vraylar might be making her more suicidal and wants to have same held and discuss with primary team tomorrow a plan around same. Medication Compliance: Yes Side effects from medications: No Attending Groups: Intermittent Review of Systems Acute medical concerns: No Review of Systems Review of Systems No acute Mental Status Exam Mental Status Exam Narrative: pleasant and engaged. wearing pajamas. Appropriate hygiene. Organized. Depressed with SI. Command hallucinations. Doing well with staff support. Insight and judgment fair Diagnostics Vital Signs (24Hr): Vital Signs - 24 hr 09/07/21 08:30 Temperature 98.4 F Pulse Rate 89 Respiratory Rate 16 Blood Pressure 127/87 Pulse Oximetry 96 BMI result Body Mass Index 47.2 Labs Results: 09/02/21 18:38 09/02/21 18:38 Medications Medications Current Medications Acetaminophen (Acetaminophen 325 Mg Tablet) 650 mg PO Q6H PRN PRN Reason: Pain (Scale Score 1-3) Last Admin: 09/06/21 18:04 Dose: 650 mg Documented by: Al Hydroxide/Mg Hydroxide (Magnesium Hydrox/Alum Hydrox 30 Ml Oral.Susp) 30 ml PO Q6H PRN PRN Reason: Heartburn/Nausea Albuterol Sulfate (Albuterol Sulfate (0.083%) 2.5 Mg/3 Ml Vial.Neb) 2.5 mg INHALE Q4H PRN PRN Reason: Shortness Of Breath Albuterol Sulfate (Albuterol Sulfate 90 Mcg 8 Gm Inhaler) 2 puff INHALE Q4H PRN PRN Reason: Wheezing Last Admin: 09/05/21 22:02 Dose: 2 puff Documented by: Cariprazine (Cariprazine Hcl 3 Mg Capsule) 6 mg PO DAILY [facility] Last Admin: 09/07/21 08:38 Dose: 6 mg Documented by: Docusate Sodium (Docusate Sodium 100 Mg Capsule) 100 mg PO BEDTIME PRN PRN Reason: Constipation Duloxetine HCl (Duloxetine Hcl 60 Mg Capsule.) 60 mg PO DAILY [facility] Last Admin: 09/07/21 08:38 Dose: 60 mg Documented by: Fluticasone/Vilanterol (Fluticasone/Vilanterol 100/25 Blst.W.Dev) 1 puff INHALE RDAILY [facility] Last Admin: 09/07/21 08:37 Dose: 1 puff Documented by: Haloperidol (Haloperidol 5 Mg Tablet) 5 mg PO Q4H PRN PRN Reason: Agitation Last Admin: 09/07/21 05:17 Dose: 5 mg Documented by: Haloperidol (Haloperidol 5 Mg Tablet) 5 mg PO TID [facility] Last Admin: 09/07/21 08:38 Dose: 5 mg Documented by: Haloperidol Decanoate (Haloperidol Decanoate 50 Mg/Ml Ampul) 100 mg IM Q28D [facility] Hydroxyzine HCl (Hydroxyzine Hcl 50 Mg Tablet) 50 mg PO BID PRN PRN Reason: anxiety Last Admin: 09/06/21 19:51 Dose: 50 mg Documented by: Lactic Acid (Ammonium Lactate 12 % Cream 140 Gm Tube) 1 appl TOPICAL BID PRN; Protocol PRN Reason: Dry Skin Last Admin: 09/07/21 08:44 Dose: 1 appl Documented by: [place] Carbonate ([place] Carbonate 300 Mg Capsule) 600 mg PO BEDTIME [facility] Last Admin: 09/06/21 19:52 Dose: 600 mg Documented by: Loratadine (Loratadine 10 Mg Tablet) 10 mg PO DAILY [facility] Last Admin: 09/07/21 08:38 Dose: 10 mg Documented by: Lorazepam (Lorazepam 1 Mg Tablet) 1 mg PO Q4H PRN PRN Reason: agitation Last Admin: 09/07/21 05:17 Dose: 1 mg Documented by: Magnesium Hydroxide (Milk Of Magnesia 30 Ml Oral.Susp) 30 ml PO DAILY PRN PRN Reason: Constipation Nicotine Polacrilex (Nicotine Polacrilex 2 Mg Gum) 2 mg BUCCAL Q2H PRN PRN Reason: nicotine cravings Omeprazole (Omeprazole 20 Mg Capsule.Dr) 20 mg PO DAILY [facility] Last Admin: 09/07/21 08:38 Dose: 20 mg Documented by: Prazosin HCl (Prazosin Hcl 5 Mg Capsule) 5 mg PO BEDTIME [facility]; Protocol Last Admin: 09/06/21 19:52 Dose: 5 mg Documented by: Senna (Sennosides 8.6 Mg Tablet) 17.2 mg PO BEDTIME [facility] Last Admin: 09/06/21 19:52 Dose: 17.2 mg Documented by: Silver Sulfadiazine (Silver Sulfadiazine 1 % Cream 20 Gm Tube) 1 appl TOPICAL BID [facility] Last Admin: 09/07/21 08:44 Dose: 1 appl Documented by: Sumatriptan Succinate (Sumatriptan Succinate 50 Mg Tablet) 50 mg PO DAILY PRN PRN Reason: Migraine Headache Topiramate (Topiramate 25 Mg Tablet) 25 mg PO BID [facility] Last Admin: 09/07/21 08:38 Dose: 25 mg Documented by: Trazodone HCl (Trazodone Hcl 100 Mg Tablet) 100 mg PO BEDTIME PRN PRN Reason: Insomnia Last Admin: 09/06/21 22:41 Dose: 100 mg Documented by: Valacyclovir HCl (Valacycyclovir Hcl 500 Mg Tablet) 500 mg PO DAILY [facility] Last Admin: 09/07/21 08:38 Dose: 500 mg Documented by: Allergies Allergies Allergy/AdvReac Type Severity Reaction Status Date / Time carbamazepine [From TEGRETOL] AdvReac Unknown NAUSEA & Verified 06/01/21 20:14 VOMITING Assessment & Plan Assessment & Plan (1) Suicidal ideation: Status: Acute Code(s): R45.851 - Suicidal ideations Assessment and Plan: ongoing (2) Chronic post-traumatic stress disorder (PTSD): Status: Chronic Code(s): F43.12 - Post-traumatic stress disorder, chronic Assessment and Plan: continue outpt meds for now (3) Lacerations of multiple sites of right arm: Status: Acute Code(s): S41.111A - Laceration without foreign body of right upper arm, initial encounter Assessment and Plan: healing well (4) Borderline personality disorder: Status: Chronic Code(s): F60.3 - Borderline personality disorder Assessment and Plan: short hospitalization if possible. Assessment and Plan: 1:1 for safety. continue home medications. medically cleared for ECT. next haldol decanoate shot due 09/16. haldol 5 and ativan 1 PRNs for agitation. ECT wednesday - NPO after 7 pm on wednesday. contact Dr. Prabhakar of [facility] to discuss vraylar concern. 09/07/2021: Confirmed that ECT is Wednesday as per team's plan above. Tolerating scheduled haldol. Feels that vraylar might be making her more suicidal and wants to have same held and discuss with primary team tomorrow a plan around same. I spent minutes with the patient and/or on the patient floor today, greater than?50% of which was spent counseling/coordinating care. Reason for contiued inpatient stay Substantial Risk for: harm to self
[2021-09-07] MEDS: hydrOXYzine HCL 50 MG TABLET PO ×2 (16:19→22:00)
[2021-09-07 18:00] VITALS: BP 138/70; PULSE 90; RESP 18; TEMP 36.6; O2SAT 98
[2021-09-07] MEDS: traZODone HCL 100 MG TABLET PO (20:00)
[2021-09-07] MEDS: Prazosin HCL 5 MG CAPSULE PO (20:00)
[2021-09-08] VITALS (11 sets, daily range): BP systolic 122–155; BP diastolic 64–91; PULSE 82–101; RESP 12–20; TEMP 36.3–37.2; O2SAT 93–99
--- NOTE | 2021-09-08 07:07 | MHC.SHP ---
Pre-Procedural Eval Section A Date of Service: 09/08/21 The patient is an INPATIENT: Yes Changes since office visit: Yes Cold of Flu in the past 2 weeks, Yes New Medical Problems, Yes Changes in Medication and Yes Patient answered all questions The History & Physical has been completed within 30 days and I have reviewed it.: Yes Section B Chief Complaint: SI Allergies: Allergies Allergy/AdvReac Type Severity Reaction Status Date / Time carbamazepine [From TEGRETOL] AdvReac Unknown NAUSEA & Verified 06/01/21 20:14 VOMITING Plan I have reviewed the history and physical and performed a pertinent physical examination on my patient. No changes have occurred unless specified.
--- NOTE | 2021-09-08 07:14 | P.CONAN_ITS ---
HPI - Anesthesia Eval Consult details Narrative: 36 yo female patient for ECT PMFSH Active Problems Active Problems: All Active Problems (Updated 09/04/21 @ 16:40 by Bubba Au MD) Pre-op evaluation (Acute) Suicidal ideation (Acute) Schizoaffective disorder, depressive type (Chronic) Hernia (Chronic) Chronic post-traumatic stress disorder (PTSD) (Chronic) Sprain of anterior cruciate ligament of right knee (Acute) Self-inflicted injury (Acute) Lacerations of multiple sites of right arm (Acute) Injury of ligament of right knee (Acute) Increased BMI (Acute) GERD (gastroesophageal reflux disease) (Acute) Borderline personality disorder (Chronic) Past Medical History Medical History Acute post-traumatic stress disorder Adjustment disorder Anxiety Asthma Borderline personality disorder Chronic post-traumatic stress disorder (PTSD) COPD (chronic obstructive pulmonary disease) Depression GERD (gastroesophageal reflux disease) Increased BMI Injury, self-inflicted Intentional self-harm PTSD (post-traumatic stress disorder) Recurrent major depression-severe Schizoaffective disorder Self-harming behavior Suicidal ideation Suicidal ideation Family History Family history of problems with anesthesia: No Surgical History History of Problems with Anesthesia: No Social History Social History Household Members: Other Household Members Other:: senior living Housing: Apartment Housing Other:: residential home Do you presently have visiting nurse or other home services: No Alcohol intake: unknown Patient Tobacco Use Status: Former Tobacco user Quit Date: 02-19-21 Tobacco use type: Cigarette Cigarette Packs Per Day: 1 Cigarettes Per Day: 20.0 Years Smoked: 17 e-Cigarette/Vaping Use: Never Used Second Hand Smoke Exposure: Yes Use of substances other than those prescribed or required for medical reasons: Yes Substance Use Type: Marijuana and Opiates Currently Displaying Signs/Symptoms of Drug Intoxication Withdrawal: No Spiritual Healthcare Practices: n/a Faith Healthcare Practices: n/a Cultural Healthcare Practices: n/a Are you DNR?: No Advance Directives: No Do you have thoughts of harming others: None Do you have a plan to hurt others: No Plan Recently lost weight without trying: No Nutrition Risks: No Nutritional Risk Patient : No : No Poor oral hygiene: No service: No Sexual orientation: Did not discuss Meds Allergies Allergy/AdvReac Type Severity Reaction Status Date / Time carbamazepine [From TEGRETOL] AdvReac Unknown NAUSEA & Verified 06/01/21 20:14 VOMITING Active Medications: Current Medications Acetaminophen (Acetaminophen 325 Mg Tablet) 650 mg PO Q6H PRN PRN Reason: Pain (Scale Score 1-3) Last Admin: 09/06/21 18:04 Dose: 650 mg Documented by: Al Hydroxide/Mg Hydroxide (Magnesium Hydrox/Alum Hydrox 30 Ml Oral.Susp) 30 ml PO Q6H PRN PRN Reason: Heartburn/Nausea Albuterol Sulfate (Albuterol Sulfate (0.083%) 2.5 Mg/3 Ml Vial.Neb) 2.5 mg INHALE Q4H PRN PRN Reason: Shortness Of Breath Albuterol Sulfate (Albuterol Sulfate 90 Mcg 8 Gm Inhaler) 2 puff INHALE Q4H PRN PRN Reason: Wheezing Last Admin: 09/05/21 22:02 Dose: 2 puff Documented by: Cariprazine (Cariprazine Hcl 3 Mg Capsule) 6 mg PO DAILY [facility] Last Admin: 09/07/21 08:38 Dose: 6 mg Documented by: Docusate Sodium (Docusate Sodium 100 Mg Capsule) 100 mg PO BEDTIME PRN PRN Reason: Constipation Duloxetine HCl (Duloxetine Hcl 60 Mg Capsule.Dr) 60 mg PO DAILY [facility] Last Admin: 09/07/21 08:38 Dose: 60 mg Documented by: Fluticasone/Vilanterol (Fluticasone/Vilanterol 100/25 Blst.W.Dev) 1 puff INHALE RDAILY [facility] Last Admin: 09/07/21 08:37 Dose: 1 puff Documented by: Haloperidol (Haloperidol 5 Mg Tablet) 5 mg PO Q4H PRN PRN Reason: Agitation Last Admin: 09/07/21 16:19 Dose: 5 mg Documented by: Haloperidol (Haloperidol 5 Mg Tablet) 5 mg PO TID [facility] Last Admin: 09/07/21 20:00 Dose: 5 mg Documented by: Haloperidol Decanoate (Haloperidol Decanoate 50 Mg/Ml Ampul) 100 mg IM Q28D [facility] Hydroxyzine HCl (Hydroxyzine Hcl 50 Mg Tablet) 50 mg PO BID PRN PRN Reason: anxiety Last Admin: 09/07/21 22:00 Dose: 50 mg Documented by: Lactic Acid (Ammonium Lactate 12 % Cream 140 Gm Tube) 1 appl TOPICAL BID PRN; Protocol PRN Reason: Dry Skin Last Admin: 09/07/21 15:59 Dose: 1 appl Documented by: Tulsita Carbonate (Tulsita Carbonate 300 Mg Capsule) 600 mg PO BEDTIME [facility] Last Admin: 09/06/21 19:52 Dose: 600 mg Documented by: Loratadine (Loratadine 10 Mg Tablet) 10 mg PO DAILY [facility] Last Admin: 09/07/21 08:38 Dose: 10 mg Documented by: Lorazepam (Lorazepam 1 Mg Tablet) 1 mg PO Q4H PRN PRN Reason: agitation Last Admin: 09/07/21 18:51 Dose: 1 mg Documented by: Magnesium Hydroxide (Milk Of Magnesia 30 Ml Oral.Susp) 30 ml PO DAILY PRN PRN Reason: Constipation Nicotine Polacrilex (Nicotine Polacrilex 2 Mg Gum) 2 mg BUCCAL Q2H PRN PRN Reason: nicotine cravings Omeprazole (Omeprazole 20 Mg Capsule.Dr) 20 mg PO DAILY [facility] Last Admin: 09/07/21 08:38 Dose: 20 mg Documented by: Prazosin HCl (Prazosin Hcl 5 Mg Capsule) 5 mg PO BEDTIME [facility]; Protocol Last Admin: 09/07/21 20:00 Dose: 5 mg Documented by: Senna (Sennosides 8.6 Mg Tablet) 17.2 mg PO BEDTIME [facility] Last Admin: 09/07/21 20:04 Dose: Not Given Documented by: Silver Sulfadiazine (Silver Sulfadiazine 1 % Cream 20 Gm Tube) 1 appl TOPICAL BID [facility] Last Admin: 09/07/21 15:59 Dose: 1 appl Documented by: Sumatriptan Succinate (Sumatriptan Succinate 50 Mg Tablet) 50 mg PO DAILY PRN PRN Reason: Migraine Headache Topiramate (Topiramate 25 Mg Tablet) 25 mg PO BID [facility] Last Admin: 09/07/21 08:38 Dose: 25 mg Documented by: Trazodone HCl (Trazodone Hcl 100 Mg Tablet) 100 mg PO BEDTIME PRN PRN Reason: Insomnia Last Admin: 09/07/21 20:00 Dose: 100 mg Documented by: Valacyclovir HCl (Valacycyclovir Hcl 500 Mg Tablet) 500 mg PO DAILY [facility] Last Admin: 09/07/21 08:38 Dose: 500 mg Documented by: Home Medications Medication Instructions Recorded Confirmed Last Taken Type omeprazole 20 mg capsule,delayed 20 mg PO DAILY 11/29/20 09/01/21 08/02/21 07:00 History release cetirizine 10 mg tablet 10 mg PO DAILY 12/24/20 09/01/21 08/02/21 08:00 History haloperidol decanoate 100 mg/mL 100 mg IM Q4W 03/30/21 09/01/21 08/16/21 History intramuscular solution (Haldol Decanoate) lorazepam 1 mg tablet 1 mg PO TID PRN 03/30/21 09/01/21 08/01/21 20:00 History prazosin 2 mg capsule 5 mg PO BEDTIME 03/30/21 09/01/21 08/01/21 20:00 History cariprazine 3 mg capsule (Vraylar) 6 mg PO DAILY 07/18/21 09/01/21 08/02/21 08:00 History fluticasone 250 mcg-salmeterol 50 1 puff INHALATION BID 08/02/21 09/01/21 08/02/21 08:00 History mcg/dose blistr powdr for inhalation (Advair Diskus) topiramate 25 mg tablet 1 tab PO BID 08/02/21 09/01/21 08/02/21 07:00 History duloxetine 60 mg capsule,delayed 1 cap PO QAM 08/03/21 09/01/21 08/02/21 08:00 History release lithium carbonate 300 mg tablet 2 tab PO BEDTIME 08/30/21 09/01/21 Unknown History acetaminophen 500 mg tablet 500 mg PO Q6H PRN 09/01/21 09/01/21 Unknown History albuterol sulfate 2.5 mg INHALATION Q4H PRN 09/01/21 09/01/21 Unknown History albuterol sulfate 90 mcg/actuation 2 inh INHALATION Q4H PRN 09/01/21 09/01/21 Unknown History breath activated powder inhaler (ProAir RespiClick) haloperidol 5 mg tablet 1 tab PO BID PRN 09/01/21 09/01/21 Unknown History hydroxyzine pamoate 50 mg capsule 1 cap PO BID PRN 09/01/21 09/01/21 Unknown History ibuprofen 600 mg tablet 600 mg PO Q8H PRN 09/01/21 09/01/21 Unknown History sumatriptan succinate 50 mg tablet 50 mg PO DAILY PRN 09/01/21 09/01/21 Unknown History trazodone 50 mg tablet 100 mg PO BEDTIME PRN 09/01/21 09/01/21 Unknown History Exam Exam Date and Time: September 08, 2021 0714 Height,Weight and Vital Signs: Height 5 ft 1 in Weight 113.568 kg Last Vital Signs Temp 98 F 09/08/21 06:21 Pulse 94 09/08/21 06:21 Resp 18 09/08/21 06:21 BP 128/76 09/08/21 06:21 Pulse Ox 98 09/08/21 06:21 Pertinent Lab Results Pertinent Lab Results: Laboratory Tests 09/01/21 09/01/21 09/01/21 20:13 20:36 20:36 WBC RBC Hgb Hct MCV MCH MCHC RDW Plt Count MPV Immature Gran % (Auto) Neut % (Auto) Lymph % (Auto) Blount % (Auto) Eos % (Auto) Baso % (Auto) Lymph # (Auto) Blount # (Auto) Eos # (Auto) Baso # (Auto) Abs Immat Gran (auto) Absolute Neuts (auto) Absolute Nucleated RBC Nucleated RBC % (auto) Sodium Potassium Chloride Carbon Dioxide Anion Gap BUN Creatinine Estim Creat Clear Calc Estimated GFR Random Glucose Calcium Total Bilirubin AST ALT Alkaline Phosphatase Total Protein Albumin Urine Test NEGATIVE Urine Opiates Screen Not Detected Urine Fentanyl Screen POSITIVE H Ur Barbiturates Screen Not Detected Ur Phencyclidine Scrn Not Detected Ur Amphetamines Screen Not Detected U Benzodiazepines Scrn Not Detected Urine Cocaine Screen Not Detected U Marijuana (THC) Screen POSITIVE H COVID-19 (RAFAL) Negative COVID-19 Clin Com See Note 09/02/21 09/02/21 09/02/21 18:38 18:38 18:38 WBC 7.4 RBC 4.32 Hgb 11.4 L Hct 36.3 L MCV 84.0 MCH 26.4 L MCHC 31.4 RDW 16.3 H Plt Count 320 MPV 11.6 Immature Gran % (Auto) 0.1 Neut % (Auto) 60.7 Lymph % (Auto) 32.9 Blount % (Auto) 5.3 Eos % (Auto) 0.7 Baso % (Auto) 0.3 Lymph # (Auto) 2.4 Blount # (Auto) 0.4 Eos # (Auto) 0.1 Baso # (Auto) 0.0 Abs Immat Gran (auto) 0.01 Absolute Neuts (auto) 4.5 Absolute Nucleated RBC 0.000 Nucleated RBC % (auto) 0.0 Sodium 140 Potassium 4.2 Chloride 114 H Carbon Dioxide 20 L Anion Gap 10 L BUN 9 Creatinine 0.77 Estim Creat Clear Calc 107.4 Estimated GFR > 60 Random Glucose 110 Calcium 9.0 Total Bilirubin 0.2 AST 15 ALT 10 Alkaline Phosphatase 62 Total Protein 6.2 L Albumin 3.6 Urine Test Urine Opiates Screen Urine Fentanyl Screen Ur Barbiturates Screen Ur Phencyclidine Scrn Ur Amphetamines Screen U Benzodiazepines Scrn Urine Cocaine Screen U Marijuana (THC) Screen COVID-19 (RAFAL) Negative COVID-19 Clin Com See Note Airway Mallampati Class: III TM Dist: >3cm Neck ROM: Full Loose/Missing/Broken Teeth: Yes (Missing, poor dentition) Heart: RRR Lungs: CTAB Assessment and Plan Assessment Anesthesia Assessment: Anesthesia Plan Discussed and Chart Reviewed Final Anesthetic Review Family History of Problems with Anesthesia: No History of Problems with Anesthesia: No NPO: Yes ASA Class: III Final Preanesthetic Review: No Changes in Pt Med Stat, Meds/Allgs Chart Reviewed, Consent Obtained/Reviewed and Anes Risks/Benef Reviewed Patient Risk: Intermediate Procedure Risk: Intermediate Assessment/Block/Sedation in SS: Assess/Block/Sedation-SS Anesthetic Plan Anesthetic Plan: GA Disposition: Standard PACU and Inp. Admit - Standard Bed
--- NOTE | 2021-09-08 07:23 | HO.ECTPROC ---
ECT Procedure Note Diagnosis/Treatment Date of Service: 09/08/21 Diagnosis: Bipolar disorder Previous ECT Date: 09/08/21 Current Treatment Number: 6 Treatment: Series Interval Clinical Notes: The patient reported that she is on the unit, depressed with lack of energy. She states that ECT works for her and she wanted to continue treatmetn. No side effects ECT Settings Device: THYMATRON DGx Electrode Placement: Bitemporal Program/Pulse Width: 0.50 Energy Percent: 100 Seizure Duration By EEG (in seconds): 24 By Motor Observation (in seconds): 23 Medications Administration General Anesthetic: Etomidate (18) Muscle Relaxant: Succinylcholine (100) Ancillary Medications Analgesics: Torodol - Pre ECT Anti-emetics: Zofran - Pre ECT Miscillaneous Medications: Propofol Airway Management Airway Management: Bag Mask Ventilation Treatment Recommendations No Changes Recommended: No change Pt Tolerated Procedure w/o Issue: Yes
[2021-09-08] MEDS: DULoxetine HCl 60 MG CAPSULE.DR PO (08:33)
[2021-09-08] MEDS: Loratadine 10 MG TABLET PO (08:33)
[2021-09-08] MEDS: Cariprazine HCl 3 MG CAPSULE 6 MG PO (08:33)
[2021-09-08] MEDS: HaloperidoL 5 MG TABLET PO ×5 (08:33→20:14)
[2021-09-08] MEDS: Omeprazole 20 MG CAPSULE.DR PO (08:33)
[2021-09-08] MEDS: Fluticasone/Vilanterol 100/25 BLST.W.DEV 1 PUFF INHALE (08:38)
[2021-09-08] MEDS: LORazepam 1 MG TABLET PO ×2 (10:30→16:49)
[2021-09-08] MEDS: Silver Sulfadiazine 1 % Cream 20 GM TUBE 1 APPL TOPICAL (10:54)
[2021-09-08] MEDS: Ammonium Lactate 12 % Cream 140 GM TUBE 1 APPL TOPICAL (10:54)
--- NOTE | 2021-09-08 16:04 | P.PNPSI_ITS ---
Subjective Subjective Date of Service: 09/08/21 Reason For Visit: SI Interim History: pt seen in her room seated on her bed late morning. bag of ice on her chair, which she has been using to distract herself from SIBI. appears a bit groggy. extolling the virtues of ECT - really feels it has helped her in the past where other treatments have not. she states the ECT makes her feel more calm and have less SI. no other complaints or requests at the moment, other than to speak with SW. per staff, on 1:1, paying cards with peers. no self harm first half of the day, attempted head banging second half, got PRNs. CAH to self harm continue, reports nightmares. Mental Status Exam Mental Status Exam Narrative: appropriately dressed and groomed, many scars from cutting across forearms, some lacerations in various stages of healing. bandage on her forehead. no PMA/PMR. hand tremor noted, course. cooperative with interview. speech dcr in rate, tone. incr latency. decr loudness and amount. thoughts linear and logical. affect blunted, appropriate to context, hypo-intense, non- labile. +SIBI. Diagnostics Vital Signs (24Hr): Vital Signs - 24 hr 09/07/21 18:00 09/08/21 05:52 09/08/21 05:53 Temperature 97.8 F 98.6 F 98.6 F Pulse Rate 90 93 93 Respiratory Rate 18 18 18 Blood Pressure 138/70 155/76 H 155/76 H Pulse Oximetry 98 99 99 09/08/21 06:21 09/08/21 07:25 09/08/21 07:30 Temperature 98 F 99.0 F Pulse Rate 94 83 92 Respiratory Rate 18 20 12 Blood Pressure 128/76 143/88 H 133/91 H Pulse Oximetry 98 93 95 09/08/21 07:35 09/08/21 07:40 09/08/21 07:55 Temperature 97.4 F Pulse Rate 90 91 101 H Respiratory Rate 20 19 20 Blood Pressure 129/87 122/77 127/78 Pulse Oximetry 94 95 96 09/08/21 08:43 Temperature 98 F Pulse Rate 82 Respiratory Rate Blood Pressure 128/64 Pulse Oximetry 95 BMI result Body Mass Index 47.2 Labs Results: 09/02/21 18:38 01/18/22 18:38 Medications Medications Current Medications Acetaminophen (Acetaminophen 325 Mg Tablet) 650 mg PO Q6H PRN PRN Reason: Pain (Scale Score 1-3) Last Admin: 09/06/21 18:04 Dose: 650 mg Documented by: Al Hydroxide/Mg Hydroxide (Magnesium Hydrox/Alum Hydrox 30 Ml Oral.Susp) 30 ml PO Q6H PRN PRN Reason: Heartburn/Nausea Albuterol Sulfate (Albuterol Sulfate (0.083%) 2.5 Mg/3 Ml Vial.Neb) 2.5 mg INHALE Q4H PRN PRN Reason: Shortness Of Breath Albuterol Sulfate (Albuterol Sulfate 90 Mcg 8 Gm Inhaler) 2 puff INHALE Q4H PRN PRN Reason: Wheezing Last Admin: 09/05/21 22:02 Dose: 2 puff Documented by: Cariprazine (Cariprazine Hcl 3 Mg Capsule) 6 mg PO DAILY [facility] Last Admin: 09/08/21 08:33 Dose: 6 mg Documented by: Docusate Sodium (Docusate Sodium 100 Mg Capsule) 100 mg PO BEDTIME PRN PRN Reason: Constipation Duloxetine HCl (Duloxetine Hcl 60 Mg Capsule.Dr) 60 mg PO DAILY [facility] Last Admin: 09/08/21 08:33 Dose: 60 mg Documented by: Fluticasone/Vilanterol (Fluticasone/Vilanterol 100/25 Blst.W.Dev) 1 puff INHALE RDAILY [facility] Last Admin: 09/08/21 08:38 Dose: 1 puff Documented by: Haloperidol (Haloperidol 5 Mg Tablet) 5 mg PO Q4H PRN PRN Reason: Agitation Last Admin: 09/08/21 10:30 Dose: 5 mg Documented by: Haloperidol (Haloperidol 5 Mg Tablet) 5 mg PO TID [facility] Last Admin: 09/08/21 08:33 Dose: 5 mg Documented by: Haloperidol Decanoate (Haloperidol Decanoate 50 Mg/Ml Ampul) 100 mg IM Q28D [facility] Hydroxyzine HCl (Hydroxyzine Hcl 50 Mg Tablet) 50 mg PO BID PRN PRN Reason: anxiety Last Admin: 09/07/21 22:00 Dose: 50 mg Documented by: Lactated Ringer's (Lr) 1,000 mls @ 100 mls/hr IVCONT .Q10H [facility] Last Admin: 09/08/21 13:57 Dose: Not Given Documented by: Lactic Acid (Ammonium Lactate 12 % Cream 140 Gm Tube) 1 appl TOPICAL BID PRN; Protocol PRN Reason: Dry Skin Last Admin: 09/08/21 10:54 Dose: 1 appl Documented by: Stokes Carbonate (Stokes Carbonate 300 Mg Capsule) 600 mg PO BEDTIME [facility] Last Admin: 09/06/21 19:52 Dose: 600 mg Documented by: Loratadine (Loratadine 10 Mg Tablet) 10 mg PO DAILY [facility] Last Admin: 09/08/21 08:33 Dose: 10 mg Documented by: Lorazepam (Lorazepam 1 Mg Tablet) 1 mg PO Q4H PRN PRN Reason: agitation Last Admin: 09/08/21 10:30 Dose: 1 mg Documented by: Magnesium Hydroxide (Milk Of Magnesia 30 Ml Oral.Susp) 30 ml PO DAILY PRN PRN Reason: Constipation Nicotine Polacrilex (Nicotine Polacrilex 2 Mg Gum) 2 mg BUCCAL Q2H PRN PRN Reason: nicotine cravings Omeprazole (Omeprazole 20 Mg Capsule.Dr) 20 mg PO DAILY [facility] Last Admin: 09/08/21 08:33 Dose: 20 mg Documented by: Oxycodone HCl (Oxycodone Hcl Immed Release 5 Mg Tablet) 5 mg PO ONCE PRN PRN Reason: Pain, Severe (Pain Scale 7-10) Prazosin HCl (Prazosin Hcl 5 Mg Capsule) 5 mg PO BEDTIME [facility]; Protocol Last Admin: 09/07/21 20:00 Dose: 5 mg Documented by: Senna (Sennosides 8.6 Mg Tablet) 17.2 mg PO BEDTIME [facility] Last Admin: 09/07/21 20:04 Dose: Not Given Documented by: Silver Sulfadiazine (Silver Sulfadiazine 1 % Cream 20 Gm Tube) 1 appl TOPICAL BID [facility] Last Admin: 09/08/21 10:54 Dose: 1 appl Documented by: Sumatriptan Succinate (Sumatriptan Succinate 50 Mg Tablet) 50 mg PO DAILY PRN PRN Reason: Migraine Headache Topiramate (Topiramate 25 Mg Tablet) 25 mg PO BID [facility] Last Admin: 09/07/21 08:38 Dose: 25 mg Documented by: Trazodone HCl (Trazodone Hcl 100 Mg Tablet) 100 mg PO BEDTIME PRN PRN Reason: Insomnia Last Admin: 09/07/21 20:00 Dose: 100 mg Documented by: Valacyclovir HCl (Valacycyclovir Hcl 500 Mg Tablet) 500 mg PO DAILY [facility] Last Admin: 09/07/21 08:38 Dose: 500 mg Documented by: Allergies Allergies Allergy/AdvReac Type Severity Reaction Status Date / Time carbamazepine [From TEGRETOL] AdvReac Unknown NAUSEA & Verified 06/01/21 20:14 VOMITING Assessment & Plan Assessment & Plan (1) Suicidal ideation: Status: Acute Code(s): R45.851 - Suicidal ideations Assessment and Plan: ongoing (2) Chronic post-traumatic stress disorder (PTSD): Status: Chronic Code(s): F43.12 - Post-traumatic stress disorder, chronic Assessment and Plan: continue outpt meds for now (3) Lacerations of multiple sites of right arm: Status: Acute Code(s): S41.111A - Laceration without foreign body of right upper arm, initial encounter Assessment and Plan: healing well (4) Borderline personality disorder: Status: Chronic Code(s): F60.3 - Borderline personality disorder Assessment and Plan: short hospitalization if possible. Assessment and Plan: 1:1 for safety. continue home medications. medically cleared for ECT. next haldol decanoate shot due 09/16. haldol 5 and ativan 1 PRNs for agitation. ECT begun friday 09/08 - next NPO after 7 pm on Wednesday. Vanna perdomo [facility] amenable to TITO gaviria. I spent minutes with the patient and/or on the patient floor today, greater than?50% of which was spent counseling/coordinating care. Reason for contiued inpatient stay Substantial Risk for: harm to self, inability to function and rapid decompensation
[2021-09-08] MEDS: hydrOXYzine HCL 50 MG TABLET PO (20:13)
[2021-09-08] MEDS: Topiramate 25 MG TABLET PO (20:14)
[2021-09-08] MEDS: traZODone HCL 100 MG TABLET PO (20:14)
[2021-09-08] MEDS: Lithium Carbonate 300 MG CAPSULE 600 MG PO (20:14)
[2021-09-08] MEDS: Prazosin HCL 5 MG CAPSULE PO (20:14)
[2021-09-08] MEDS: LORazepam 2 MG/ML VIAL IM (20:53)
--- NOTE | 2021-09-08 22:16 | HO.PSYCHPN ---
Subjective Subjective Date of Service: 09/08/21 Reason For Visit: SI Interim History: Documentation per protocol. Pt presented with dissociative features, head banging, requested IM ativan 2 mg. She was released after 30 min and re-evaluated 60 min post restraint, was A&O x 4, found walking around, calm, pleasant, and responsive; remains on 1:1. She had full ROM in extremities, vital signs wnl. She was provided with food, fluids. Diagnostics Vital Signs (24Hr): Vital Signs - 24 hr 09/08/21 05:52 09/08/21 05:53 09/08/21 06:21 Temperature 98.6 F 98.6 F 98 F Pulse Rate 93 93 94 Respiratory Rate 18 18 18 Blood Pressure 155/76 H 155/76 H 128/76 Pulse Oximetry 99 99 98 09/08/21 07:25 09/08/21 07:30 09/08/21 07:35 Temperature 99.0 F Pulse Rate 83 92 90 Respiratory Rate 20 12 20 Blood Pressure 143/88 H 133/91 H 129/87 Pulse Oximetry 93 95 94 09/08/21 07:40 09/08/21 07:55 09/08/21 08:43 Temperature 97.4 F 98 F Pulse Rate 91 101 H 82 Respiratory Rate 19 20 Blood Pressure 122/77 127/78 128/64 Pulse Oximetry 95 96 95 09/08/21 18:00 Temperature 98.0 F Pulse Rate 88 Respiratory Rate 18 Blood Pressure 132/68 Pulse Oximetry 97 BMI result Body Mass Index 47.2 Labs Results: 09/02/21 18:38 09/02/21 18:38 Medications Medications Current Medications Acetaminophen (Acetaminophen 325 Mg Tablet) 650 mg PO Q6H PRN PRN Reason: Pain (Scale Score 1-3) Last Admin: 09/06/21 18:04 Dose: 650 mg Documented by: Al Hydroxide/Mg Hydroxide (Magnesium Hydrox/Alum Hydrox 30 Ml Oral.Susp) 30 ml PO Q6H PRN PRN Reason: Heartburn/Nausea Albuterol Sulfate (Albuterol Sulfate (0.083%) 2.5 Mg/3 Ml Vial.Neb) 2.5 mg INHALE Q4H PRN PRN Reason: Shortness Of Breath Albuterol Sulfate (Albuterol Sulfate 90 Mcg 8 Gm Inhaler) 2 puff INHALE Q4H PRN PRN Reason: Wheezing Last Admin: 09/05/21 22:02 Dose: 2 puff Documented by: Cariprazine (Cariprazine Hcl 3 Mg Capsule) 6 mg PO DAILY [facility] Last Admin: 09/08/21 08:33 Dose: 6 mg Documented by: Docusate Sodium (Docusate Sodium 100 Mg Capsule) 100 mg PO BEDTIME PRN PRN Reason: Constipation Duloxetine HCl (Duloxetine Hcl 60 Mg Capsule.Dr) 60 mg PO DAILY [facility] Last Admin: 09/08/21 08:33 Dose: 60 mg Documented by: Fluticasone/Vilanterol (Fluticasone/Vilanterol 100/25 Blst.W.Dev) 1 puff INHALE RDAILY [facility] Last Admin: 09/08/21 08:38 Dose: 1 puff Documented by: Haloperidol (Haloperidol 5 Mg Tablet) 5 mg PO Q4H PRN PRN Reason: Agitation Last Admin: 09/08/21 16:49 Dose: 5 mg Documented by: Haloperidol (Haloperidol 5 Mg Tablet) 5 mg PO TID [facility] Last Admin: 09/08/21 20:14 Dose: 5 mg Documented by: Haloperidol Decanoate (Haloperidol Decanoate 50 Mg/Ml Ampul) 100 mg IM Q28D [facility] Hydroxyzine HCl (Hydroxyzine Hcl 50 Mg Tablet) 50 mg PO BID PRN PRN Reason: anxiety Last Admin: 09/08/21 20:13 Dose: 50 mg Documented by: Lactic Acid (Ammonium Lactate 12 % Cream 140 Gm Tube) 1 appl TOPICAL BID PRN; Protocol PRN Reason: Dry Skin Last Admin: 09/08/21 10:54 Dose: 1 appl Documented by: [place] Carbonate ([place] Carbonate 300 Mg Capsule) 600 mg PO BEDTIME [facility] Last Admin: 09/08/21 20:14 Dose: 600 mg Documented by: Loratadine (Loratadine 10 Mg Tablet) 10 mg PO DAILY [facility] Last Admin: 09/08/21 08:33 Dose: 10 mg Documented by: Lorazepam (Lorazepam 1 Mg Tablet) 1 mg PO Q4H PRN PRN Reason: agitation Last Admin: 09/08/21 16:49 Dose: 1 mg Documented by: Magnesium Hydroxide (Milk Of Magnesia 30 Ml Oral.Susp) 30 ml PO DAILY PRN PRN Reason: Constipation Nicotine Polacrilex (Nicotine Polacrilex 2 Mg Gum) 2 mg BUCCAL Q2H PRN PRN Reason: nicotine cravings Omeprazole (Omeprazole 20 Mg Capsule.Dr) 20 mg PO DAILY [facility] Last Admin: 09/08/21 08:33 Dose: 20 mg Documented by: Oxycodone HCl (Oxycodone Hcl Immed Release 5 Mg Tablet) 5 mg PO ONCE PRN PRN Reason: Pain, Severe (Pain Scale 7-10) Prazosin HCl (Prazosin Hcl 5 Mg Capsule) 5 mg PO BEDTIME [facility]; Protocol Last Admin: 09/08/21 20:14 Dose: 5 mg Documented by: Senna (Sennosides 8.6 Mg Tablet) 17.2 mg PO BEDTIME [facility] Last Admin: 09/08/21 21:09 Dose: Not Given Documented by: Silver Sulfadiazine (Silver Sulfadiazine 1 % Cream 20 Gm Tube) 1 appl TOPICAL BID [facility] Last Admin: 09/08/21 20:14 Dose: Not Given Documented by: Sumatriptan Succinate (Sumatriptan Succinate 50 Mg Tablet) 50 mg PO DAILY PRN PRN Reason: Migraine Headache Topiramate (Topiramate 25 Mg Tablet) 25 mg PO BID [facility] Last Admin: 09/08/21 20:14 Dose: 25 mg Documented by: Trazodone HCl (Trazodone Hcl 100 Mg Tablet) 100 mg PO BEDTIME PRN PRN Reason: Insomnia Last Admin: 09/08/21 20:14 Dose: 100 mg Documented by: Valacyclovir HCl (Valacycyclovir Hcl 500 Mg Tablet) 500 mg PO DAILY [facility] Last Admin: 09/07/21 08:38 Dose: 500 mg Documented by: Allergies Allergies Allergy/AdvReac Type Severity Reaction Status Date / Time carbamazepine [From TEGRETOL] AdvReac Unknown NAUSEA & Verified 06/01/21 20:14 VOMITING Assessment & Plan Assessment & Plan (1) Suicidal ideation: Status: Acute Code(s): R45.851 - Suicidal ideations Assessment and Plan: ongoing (2) Chronic post-traumatic stress disorder (PTSD): Status: Chronic Code(s): F43.12 - Post-traumatic stress disorder, chronic Assessment and Plan: continue outpt meds for now (3) Lacerations of multiple sites of right arm: Status: Acute Code(s): S41.111A - Laceration without foreign body of right upper arm, initial encounter Assessment and Plan: healing well (4) Borderline personality disorder: Status: Chronic Code(s): F60.3 - Borderline personality disorder Assessment and Plan: short hospitalization if possible. Assessment and Plan: 1:1 for safety. continue home medications. medically cleared for ECT. next haldol decanoate shot due 09/16. haldol 5 and ativan 1 PRNs for agitation. ECT begun friday 09/08 - next NPO after 7 pm on Wednesday. Nelsy amenable to TITO gaviria. I spent minutes with the patient and/or on the patient floor today, greater than?50% of which was spent counseling/coordinating care. Reason for contiued inpatient stay Substantial Risk for: harm to self, rapid decompensation and med/psych decompensation
--- NOTE | 2021-09-09 00:47 | PC.NURSE ---
Around 2044, patient approached this nurse and said that she feels like hurting herself and wants to bang her head, and is having a lot of anxiety. Patient stated that the PO medications from before havnt helped, and asked if she could get Ativan via IM route. Provider on the floor at the time agreed. patient has sitter 1 to 1
[2021-09-09 06:00] VITALS: BP 132/83; PULSE 90; RESP 16; TEMP 36.7; O2SAT 97
[2021-09-09] MEDS: HaloperidoL 5 MG TABLET PO ×5 (08:05→19:54)
[2021-09-09] MEDS: Omeprazole 20 MG CAPSULE.DR PO (09:12)
[2021-09-09] MEDS: Loratadine 10 MG TABLET PO (09:12)
[2021-09-09] MEDS: Topiramate 25 MG TABLET PO (09:12)
[2021-09-09] MEDS: Cariprazine HCl 3 MG CAPSULE 6 MG PO (09:13)
[2021-09-09] MEDS: DULoxetine HCl 60 MG CAPSULE.DR PO (09:13)
--- NOTE | 2021-09-09 14:23 | P.PNPSI_ITS ---
Subjective Subjective Date of Service: 09/09/21 Reason For Visit: SI Interim History: pt making eye contact with MD in milieu, appears brighter than previous. amenable to interview, seems eager to tell she is feeling better today than yesterday. MD reflects she does appear brighter and with more energy. she attributes her improvement to ECT. she raises the issue of vraylar, and reviews his discussion with laci with her and the idea that vraylar isn't adding much to her treatment. she agrees to taper and DC. feeling a little better. SIBI continues but feels better able to manage it. per staff, received ECT yesterday. dep 05/25 yesterday. +AH. punching forehead. +SI with plan to strangle self or bang head extremely hard. head banging x1 gabriel. safe on unit but not alone, asked for IM of ativan yesterday. today trying to hit head in the morning. Mental Status Exam Mental Status Exam Narrative: appropriately dressed and groomed, many scars from cutting across forearms, some lacerations in various stages of healing. no bandage on her forehead, vertical lac visible, not closed. no PMA/PMR. no hand tremor noted. cooperative with interview. speech nml in rate, tone, latency, loudness and amount. thoughts linear and logical. affect brighter and more flexible, appropriate to context, normo-intense, non-labile. +SIBI. Diagnostics Vital Signs (24Hr): Vital Signs - 24 hr 09/08/21 18:00 09/08/21 20:50 09/09/21 06:00 Temperature 98.0 F 98.2 F 98.0 F Pulse Rate 88 91 90 Respiratory Rate 18 18 16 Blood Pressure 132/68 132/78 132/83 Pulse Oximetry 97 97 97 BMI result Body Mass Index 47.2 Labs Results: 09/02/21 18:38 09/02/21 18:38 Medications Medications Current Medications Acetaminophen (Acetaminophen 325 Mg Tablet) 650 mg PO Q6H PRN PRN Reason: Pain (Scale Score 1-3) Last Admin: 09/06/21 18:04 Dose: 650 mg Documented by: Al Hydroxide/Mg Hydroxide (Magnesium Hydrox/Alum Hydrox 30 Ml Oral.Susp) 30 ml PO Q6H PRN PRN Reason: Heartburn/Nausea Albuterol Sulfate (Albuterol Sulfate 90 Mcg 8 Gm Inhaler) 2 puff INHALE Q4H PRN PRN Reason: Wheezing Last Admin: 09/05/21 22:02 Dose: 2 puff Documented by: Cariprazine (Cariprazine Hcl 3 Mg Capsule) 4 mg PO DAILY [facility] Docusate Sodium (Docusate Sodium 100 Mg Capsule) 100 mg PO BEDTIME PRN PRN Reason: Constipation Duloxetine HCl (Duloxetine Hcl 60 Mg Capsule.) 60 mg PO DAILY [facility] Last Admin: 09/09/21 09:13 Dose: 60 mg Documented by: Fluticasone/Vilanterol (Fluticasone/Vilanterol 100/25 Blst.W.Dev) 1 puff INHALE RDAILY [facility] Last Admin: 09/09/21 09:15 Dose: Not Given Documented by: Haloperidol (Haloperidol 5 Mg Tablet) 5 mg PO Q4H PRN PRN Reason: Agitation Last Admin: 09/09/21 11:51 Dose: 5 mg Documented by: Haloperidol (Haloperidol 5 Mg Tablet) 5 mg PO TID [facility] Last Admin: 09/09/21 09:13 Dose: 5 mg Documented by: Haloperidol Decanoate (Haloperidol Decanoate 50 Mg/Ml Ampul) 100 mg IM Q28D [facility] Hydroxyzine HCl (Hydroxyzine Hcl 50 Mg Tablet) 50 mg PO BID PRN PRN Reason: anxiety Last Admin: 09/08/21 20:13 Dose: 50 mg Documented by: Lactic Acid (Ammonium Lactate 12 % Cream 140 Gm Tube) 1 appl TOPICAL BID PRN; Protocol PRN Reason: Dry Skin Last Admin: 09/08/21 10:54 Dose: 1 appl Documented by: [place] Carbonate ([place] Carbonate 300 Mg Capsule) 600 mg PO BEDTIME [facility] Last Admin: 09/08/21 20:14 Dose: 600 mg Documented by: Loratadine (Loratadine 10 Mg Tablet) 10 mg PO DAILY [facility] Last Admin: 09/09/21 09:12 Dose: 10 mg Documented by: Magnesium Hydroxide (Milk Of Magnesia 30 Ml Oral.Susp) 30 ml PO DAILY PRN PRN Reason: Constipation Nicotine Polacrilex (Nicotine Polacrilex 2 Mg Gum) 2 mg BUCCAL Q2H PRN PRN Reason: nicotine cravings Omeprazole (Omeprazole 20 Mg Capsule.) 20 mg PO DAILY [facility] Last Admin: 09/09/21 09:12 Dose: 20 mg Documented by: Oxycodone HCl (Oxycodone Hcl Immed Release 5 Mg Tablet) 5 mg PO ONCE PRN PRN Reason: Pain, Severe (Pain Scale 7-10) Prazosin HCl (Prazosin Hcl 5 Mg Capsule) 5 mg PO BEDTIME [facility]; Protocol Last Admin: 09/08/21 20:14 Dose: 5 mg Documented by: Senna (Sennosides 8.6 Mg Tablet) 17.2 mg PO BEDTIME [facility] Last Admin: 09/08/21 21:09 Dose: Not Given Documented by: Silver Sulfadiazine (Silver Sulfadiazine 1 % Cream 20 Gm Tube) 1 appl TOPICAL BID [facility] Last Admin: 09/09/21 11:52 Dose: Not Given Documented by: Sumatriptan Succinate (Sumatriptan Succinate 50 Mg Tablet) 50 mg PO DAILY PRN PRN Reason: Migraine Headache Topiramate (Topiramate 25 Mg Tablet) 25 mg PO BID [facility] Last Admin: 09/09/21 09:12 Dose: 25 mg Documented by: Trazodone HCl (Trazodone Hcl 100 Mg Tablet) 100 mg PO BEDTIME PRN PRN Reason: Insomnia Last Admin: 09/08/21 20:14 Dose: 100 mg Documented by: Valacyclovir HCl (Valacycyclovir Hcl 500 Mg Tablet) 500 mg PO DAILY [facility] Last Admin: 09/09/21 09:13 Dose: 500 mg Documented by: Allergies Allergies Allergy/AdvReac Type Severity Reaction Status Date / Time carbamazepine [From TEGRETOL] AdvReac Unknown NAUSEA & Verified 06/01/21 20:14 VOMITING Assessment & Plan Assessment & Plan (1) Suicidal ideation: Status: Acute Code(s): R45.851 - Suicidal ideations Assessment and Plan: ongoing (2) Chronic post-traumatic stress disorder (PTSD): Status: Chronic Code(s): F43.12 - Post-traumatic stress disorder, chronic Assessment and Plan: continue outpt meds for now (3) Lacerations of multiple sites of right arm: Status: Acute Code(s): S41.111A - Laceration without foreign body of right upper arm, initial encounter Assessment and Plan: healing well (4) Borderline personality disorder: Status: Chronic Code(s): F60.3 - Borderline personality disorder Assessment and Plan: short hospitalization if possible. Assessment and Plan: 1:1 for safety. continue home medications; T/C medication holiday per conversation with avni aguero prescriber.. next haldol decanoate shot due 09/16. haldol 5 and ativan 1 PRNs for agitation. ECT begun friday 09/08 - next NPO after 7 pm on Wednesday. Nelsy amenable to DC vraylar, supports medication holiday. I spent minutes with the patient and/or on the patient floor today, greater than?50% of which was spent counseling/coordinating care. Reason for contiued inpatient stay Substantial Risk for: harm to self
[2021-09-09 18:00] VITALS: BP 124/81; PULSE 98; RESP 16; TEMP 36.5; O2SAT 93
[2021-09-09] MEDS: Prazosin HCL 5 MG CAPSULE PO (19:54)
[2021-09-09] MEDS: Sennosides 8.6 MG TABLET 17.2 MG PO (19:55)
[2021-09-09] MEDS: traZODone HCL 100 MG TABLET PO (20:22)
[2021-09-09] MEDS: Silver Sulfadiazine 1 % Cream 20 GM TUBE 1 APPL TOPICAL (21:22)
[2021-09-09] MEDS: hydrOXYzine HCL 50 MG TABLET PO (22:18)
--- NOTE | 2021-09-09 23:33 | PC.NURSE ---
Patient has boil to aretha area. Complains of pain this shift d/t friction related to walking. Silver Sulfadiazine cream applied to area with good effect. Patient reported pain relief.
[2021-09-10] VITALS (12 sets, daily range): BP systolic 131–152; BP diastolic 52–95; PULSE 98–114; RESP 18–26; TEMP 36.4–37.4; O2SAT 94–99
--- NOTE | 2021-09-10 06:48 | HO.ANESPROP2 ---
[facility] Active Problems Active Problems: All Active Problems (Updated 09/04/21 @ 16:40 by Bubba Au MD) Pre-op evaluation (Acute) Suicidal ideation (Acute) Schizoaffective disorder, depressive type (Chronic) Hernia (Chronic) Chronic post-traumatic stress disorder (PTSD) (Chronic) Sprain of anterior cruciate ligament of right knee (Acute) Self-inflicted injury (Acute) Lacerations of multiple sites of right arm (Acute) Injury of ligament of right knee (Acute) Increased BMI (Acute) GERD (gastroesophageal reflux disease) (Acute) Borderline personality disorder (Chronic) Past Medical History Medical History Acute post-traumatic stress disorder Adjustment disorder Anxiety Asthma Borderline personality disorder Chronic post-traumatic stress disorder (PTSD) COPD (chronic obstructive pulmonary disease) Depression GERD (gastroesophageal reflux disease) Increased BMI Injury, self-inflicted Intentional self-harm PTSD (post-traumatic stress disorder) Recurrent major depression-severe Schizoaffective disorder Self-harming behavior Suicidal ideation Suicidal ideation Family History Family history of problems with anesthesia: No Surgical History History of Problems with Anesthesia: No Social History Social History Household Members: Other Household Members Other:: long term Housing: Apartment Housing Other:: residential home Do you presently have visiting nurse or other home services: No Alcohol intake: unknown Patient Tobacco Use Status: Former Tobacco user Quit Date: 02-19-21 Tobacco use type: Cigarette Cigarette Packs Per Day: 1 Cigarettes Per Day: 20.0 Years Smoked: 17 e-Cigarette/Vaping Use: Never Used Second Hand Smoke Exposure: Yes Use of substances other than those prescribed or required for medical reasons: Yes Substance Use Type: Marijuana and Opiates Currently Displaying Signs/Symptoms of Drug Intoxication Withdrawal: No Spiritual Healthcare Practices: n/a [facility] Practices: n/a Cultural Healthcare Practices: n/a Are you DNR?: No Advance Directives: No Do you have thoughts of harming others: None Do you have a plan to hurt others: No Plan Recently lost weight without trying: No Nutrition Risks: No Nutritional Risk Patient : No : No Poor oral hygiene: No service: No Sexual orientation: Did not discuss Meds Allergies Allergy/AdvReac Type Severity Reaction Status Date / Time carbamazepine [From TEGRETOL] AdvReac Unknown NAUSEA & Verified 06/01/21 20:14 VOMITING Active Medications: Current Medications Acetaminophen (Acetaminophen 325 Mg Tablet) 650 mg PO Q6H PRN PRN Reason: Pain (Scale Score 1-3) Last Admin: 09/06/21 18:04 Dose: 650 mg Documented by: Al Hydroxide/Mg Hydroxide (Magnesium Hydrox/Alum Hydrox 30 Ml Oral.Susp) 30 ml PO Q6H PRN PRN Reason: Heartburn/Nausea Albuterol Sulfate (Albuterol Sulfate 90 Mcg 8 Gm Inhaler) 2 puff INHALE Q4H PRN PRN Reason: Wheezing Last Admin: 09/05/21 22:02 Dose: 2 puff Documented by: Cariprazine (Cariprazine Hcl 3 Mg Capsule) 4 mg PO DAILY [facility] Docusate Sodium (Docusate Sodium 100 Mg Capsule) 100 mg PO BEDTIME PRN PRN Reason: Constipation Duloxetine HCl (Duloxetine Hcl 60 Mg Capsule.Dr) 60 mg PO DAILY [facility] Last Admin: 09/09/21 09:13 Dose: 60 mg Documented by: Fluticasone/Vilanterol (Fluticasone/Vilanterol 100/25 Blst.W.Dev) 1 puff INHALE RDAILY [facility] Last Admin: 09/09/21 09:15 Dose: Not Given Documented by: Haloperidol (Haloperidol 5 Mg Tablet) 5 mg PO Q4H PRN PRN Reason: Agitation Last Admin: 09/09/21 11:51 Dose: 5 mg Documented by: Haloperidol (Haloperidol 5 Mg Tablet) 5 mg PO TID [facility] Last Admin: 09/09/21 19:54 Dose: 5 mg Documented by: Haloperidol Decanoate (Haloperidol Decanoate 50 Mg/Ml Ampul) 100 mg IM Q28D [facility] Hydroxyzine HCl (Hydroxyzine Hcl 50 Mg Tablet) 50 mg PO BID PRN PRN Reason: anxiety Last Admin: 09/09/21 22:18 Dose: 50 mg Documented by: Lactated Ringer's (Lr) 1,000 mls @ 50 mls/hr IVCONT .Q20H [facility] Lactic Acid (Ammonium Lactate 12 % Cream 140 Gm Tube) 1 appl TOPICAL BID PRN; Protocol PRN Reason: Dry Skin Last Admin: 09/08/21 10:54 Dose: 1 appl Documented by: [place] Carbonate ([place] Carbonate 300 Mg Capsule) 600 mg PO BEDTIME [facility] Last Admin: 09/09/21 20:24 Dose: Not Given Documented by: Loratadine (Loratadine 10 Mg Tablet) 10 mg PO DAILY [facility] Last Admin: 09/09/21 09:12 Dose: 10 mg Documented by: Magnesium Hydroxide (Milk Of Magnesia 30 Ml Oral.Susp) 30 ml PO DAILY PRN PRN Reason: Constipation Nicotine Polacrilex (Nicotine Polacrilex 2 Mg Gum) 2 mg BUCCAL Q2H PRN PRN Reason: nicotine cravings Omeprazole (Omeprazole 20 Mg Capsule.Dr) 20 mg PO DAILY [facility] Last Admin: 09/09/21 09:12 Dose: 20 mg Documented by: Oxycodone HCl (Oxycodone Hcl Immed Release 5 Mg Tablet) 5 mg PO ONCE PRN PRN Reason: Pain, Severe (Pain Scale 7-10) Prazosin HCl (Prazosin Hcl 5 Mg Capsule) 5 mg PO BEDTIME [facility]; Protocol Last Admin: 09/09/21 19:54 Dose: 5 mg Documented by: Senna (Sennosides 8.6 Mg Tablet) 17.2 mg PO BEDTIME [facility] Last Admin: 09/09/21 19:55 Dose: 17.2 mg Documented by: Silver Sulfadiazine (Silver Sulfadiazine 1 % Cream 20 Gm Tube) 1 appl TOPICAL BID [facility] Last Admin: 09/09/21 21:22 Dose: 1 appl Documented by: Sumatriptan Succinate (Sumatriptan Succinate 50 Mg Tablet) 50 mg PO DAILY PRN PRN Reason: Migraine Headache Topiramate (Topiramate 25 Mg Tablet) 25 mg PO BID [facility] Last Admin: 09/09/21 20:24 Dose: Not Given Documented by: Trazodone HCl (Trazodone Hcl 100 Mg Tablet) 100 mg PO BEDTIME PRN PRN Reason: Insomnia Last Admin: 09/09/21 20:22 Dose: 100 mg Documented by: Valacyclovir HCl (Valacycyclovir Hcl 500 Mg Tablet) 500 mg PO DAILY [facility] Last Admin: 09/09/21 09:13 Dose: 500 mg Documented by: Home Medications Medication Instructions Recorded Confirmed Last Taken Type omeprazole 20 mg capsule,delayed 20 mg PO DAILY 11/29/20 09/01/21 08/02/21 07:00 History release cetirizine 10 mg tablet 10 mg PO DAILY 12/24/20 09/01/21 08/02/21 08:00 History haloperidol decanoate 100 mg/mL 100 mg IM Q4W 03/30/21 09/01/21 08/16/21 History intramuscular solution (Haldol Decanoate) lorazepam 1 mg tablet 1 mg PO TID PRN 03/30/21 09/01/21 08/01/21 20:00 History prazosin 2 mg capsule 5 mg PO BEDTIME 03/30/21 09/01/21 08/01/21 20:00 History cariprazine 3 mg capsule (Vraylar) 6 mg PO DAILY 07/18/21 09/01/21 08/02/21 08:00 History fluticasone 250 mcg-salmeterol 50 1 puff INHALATION BID 08/02/21 09/01/21 08/02/21 08:00 History mcg/dose blistr powdr for inhalation (Advair Diskus) topiramate 25 mg tablet 1 tab PO BID 08/02/21 09/01/21 08/02/21 07:00 History duloxetine 60 mg capsule,delayed 1 cap PO QAM 08/03/21 09/01/21 08/02/21 08:00 History release lithium carbonate 300 mg tablet 2 tab PO BEDTIME 08/30/21 09/01/21 Unknown History acetaminophen 500 mg tablet 500 mg PO Q6H PRN 09/01/21 09/01/21 Unknown History albuterol sulfate 2.5 mg INHALATION Q4H PRN 09/01/21 09/01/21 Unknown History albuterol sulfate 90 mcg/actuation 2 inh INHALATION Q4H PRN 09/01/21 09/01/21 Unknown History breath activated powder inhaler (ProAir RespiClick) haloperidol 5 mg tablet 1 tab PO BID PRN 09/01/21 09/01/21 Unknown History hydroxyzine pamoate 50 mg capsule 1 cap PO BID PRN 09/01/21 09/01/21 Unknown History ibuprofen 600 mg tablet 600 mg PO Q8H PRN 09/01/21 09/01/21 Unknown History sumatriptan succinate 50 mg tablet 50 mg PO DAILY PRN 09/01/21 09/01/21 Unknown History trazodone 50 mg tablet 100 mg PO BEDTIME PRN 09/01/21 09/01/21 Unknown History Exam Exam Date and Time: September 10, 2021 0648 Height,Weight and Vital Signs: Height 5 ft 1 in Weight 113.568 kg Last Vital Signs Temp 98.2 F 09/10/21 06:32 Pulse 103 H 09/10/21 06:32 Resp 20 09/10/21 06:32 BP 138/89 09/10/21 06:32 Pulse Ox 96 09/10/21 06:32 Pertinent Lab Results Pertinent Lab Results: Laboratory Tests 09/01/21 09/01/21 09/01/21 20:13 20:36 20:36 WBC RBC Hgb Hct MCV MCH MCHC RDW Plt Count MPV Immature Gran % (Auto) Neut % (Auto) Lymph % (Auto) [place] % (Auto) Eos % (Auto) Baso % (Auto) Lymph # (Auto) [place] # (Auto) Eos # (Auto) Baso # (Auto) Abs Immat Gran (auto) Absolute Neuts (auto) Absolute Nucleated RBC Nucleated RBC % (auto) Sodium Potassium Chloride Carbon Dioxide Anion Gap BUN Creatinine Estim Creat Clear Calc Estimated GFR Random Glucose Calcium Total Bilirubin AST ALT Alkaline Phosphatase Total Protein Albumin Urine Test NEGATIVE Urine Opiates Screen Not Detected Urine Fentanyl Screen POSITIVE H Ur Barbiturates Screen Not Detected Ur Phencyclidine Scrn Not Detected Ur Amphetamines Screen Not Detected U Benzodiazepines Scrn Not Detected Urine Cocaine Screen Not Detected U Marijuana (THC) Screen POSITIVE H COVID-19 (RAFAL) Negative COVID-19 Clin Com See Note 09/02/21 09/02/21 09/02/21 18:38 18:38 18:38 WBC 7.4 RBC 4.32 Hgb 11.4 L Hct 36.3 L MCV 84.0 MCH 26.4 L MCHC 31.4 RDW 16.3 H Plt Count 320 MPV 11.6 Immature Gran % (Auto) 0.1 Neut % (Auto) 60.7 Lymph % (Auto) 32.9 [place] % (Auto) 5.3 Eos % (Auto) 0.7 Baso % (Auto) 0.3 Lymph # (Auto) 2.4 [place] # (Auto) 0.4 Eos # (Auto) 0.1 Baso # (Auto) 0.0 Abs Immat Gran (auto) 0.01 Absolute Neuts (auto) 4.5 Absolute Nucleated RBC 0.000 Nucleated RBC % (auto) 0.0 Sodium 140 Potassium 4.2 Chloride 114 H Carbon Dioxide 20 L Anion Gap 10 L BUN 9 Creatinine 0.77 Estim Creat Clear Calc 107.4 Estimated GFR > 60 Random Glucose 110 Calcium 9.0 Total Bilirubin 0.2 AST 15 ALT 10 Alkaline Phosphatase 62 Total Protein 6.2 L Albumin 3.6 Urine Test Urine Opiates Screen Urine Fentanyl Screen Ur Barbiturates Screen Ur Phencyclidine Scrn Ur Amphetamines Screen U Benzodiazepines Scrn Urine Cocaine Screen U Marijuana (THC) Screen COVID-19 (RAFAL) Negative COVID-19 Clin Com See Note Airway Mallampati Class: II TM Dist: >3cm Neck ROM: Full Heart: rrr Lungs: cta Assessment and Plan Assessment Anesthesia Assessment: Anesthesia Plan Discussed and Chart Reviewed Final Anesthetic Review Family History of Problems with Anesthesia: No History of Problems with Anesthesia: No NPO: Yes ASA Class: III Final Preanesthetic Review: No Changes in Pt Med Stat, Meds/Allgs Chart Reviewed and Consent Obtained/Reviewed Patient Risk: Intermediate Procedure Risk: Intermediate Anesthetic Plan Anesthetic Plan: GA Disposition: Standard PACU
--- NOTE | 2021-09-10 06:56 | HO.ANESPROP2 ---
[facility] Active Problems Active Problems: All Active Problems (Updated 09/04/21 @ 16:40 by Bubba Au MD) Pre-op evaluation (Acute) Suicidal ideation (Acute) Schizoaffective disorder, depressive type (Chronic) Hernia (Chronic) Chronic post-traumatic stress disorder (PTSD) (Chronic) Sprain of anterior cruciate ligament of right knee (Acute) Self-inflicted injury (Acute) Lacerations of multiple sites of right arm (Acute) Injury of ligament of right knee (Acute) Increased BMI (Acute) GERD (gastroesophageal reflux disease) (Acute) Borderline personality disorder (Chronic) Past Medical History Medical History Acute post-traumatic stress disorder Adjustment disorder Anxiety Asthma Borderline personality disorder Chronic post-traumatic stress disorder (PTSD) COPD (chronic obstructive pulmonary disease) Depression GERD (gastroesophageal reflux disease) Increased BMI Injury, self-inflicted Intentional self-harm PTSD (post-traumatic stress disorder) Recurrent major depression-severe Schizoaffective disorder Self-harming behavior Suicidal ideation Suicidal ideation Family History Family history of problems with anesthesia: No Surgical History History of Problems with Anesthesia: No Social History Social History Household Members: Other Household Members Other:: halfway Housing: Apartment Housing Other:: residential home Do you presently have visiting nurse or other home services: No Alcohol intake: unknown Patient Tobacco Use Status: Former Tobacco user Quit Date: 02-19-21 Tobacco use type: Cigarette Cigarette Packs Per Day: 1 Cigarettes Per Day: 20.0 Years Smoked: 17 e-Cigarette/Vaping Use: Never Used Second Hand Smoke Exposure: Yes Use of substances other than those prescribed or required for medical reasons: Yes Substance Use Type: Marijuana and Opiates Currently Displaying Signs/Symptoms of Drug Intoxication Withdrawal: No Spiritual Healthcare Practices: n/a Muslim Healthcare Practices: n/a Cultural Healthcare Practices: n/a Are you DNR?: No Advance Directives: No Do you have thoughts of harming others: None Do you have a plan to hurt others: No Plan Recently lost weight without trying: No Nutrition Risks: No Nutritional Risk Patient : No : No Poor oral hygiene: No service: No Sexual orientation: Did not discuss Meds Allergies Allergy/AdvReac Type Severity Reaction Status Date / Time carbamazepine [From TEGRETOL] AdvReac Unknown NAUSEA & Verified 06/01/21 20:14 VOMITING Active Medications: Current Medications Acetaminophen (Acetaminophen 325 Mg Tablet) 650 mg PO Q6H PRN PRN Reason: Pain (Scale Score 1-3) Last Admin: 09/06/21 18:04 Dose: 650 mg Documented by: Al Hydroxide/Mg Hydroxide (Magnesium Hydrox/Alum Hydrox 30 Ml Oral.Susp) 30 ml PO Q6H PRN PRN Reason: Heartburn/Nausea Albuterol Sulfate (Albuterol Sulfate 90 Mcg 8 Gm Inhaler) 2 puff INHALE Q4H PRN PRN Reason: Wheezing Last Admin: 09/05/21 22:02 Dose: 2 puff Documented by: Cariprazine (Cariprazine Hcl 3 Mg Capsule) 4 mg PO DAILY [facility] Docusate Sodium (Docusate Sodium 100 Mg Capsule) 100 mg PO BEDTIME PRN PRN Reason: Constipation Duloxetine HCl (Duloxetine Hcl 60 Mg Capsule.Dr) 60 mg PO DAILY [facility] Last Admin: 09/09/21 09:13 Dose: 60 mg Documented by: Fluticasone/Vilanterol (Fluticasone/Vilanterol 100/25 Blst.W.Dev) 1 puff INHALE RDAILY [facility] Last Admin: 09/09/21 09:15 Dose: Not Given Documented by: Haloperidol (Haloperidol 5 Mg Tablet) 5 mg PO Q4H PRN PRN Reason: Agitation Last Admin: 09/09/21 11:51 Dose: 5 mg Documented by: Haloperidol (Haloperidol 5 Mg Tablet) 5 mg PO TID [facility] Last Admin: 09/09/21 19:54 Dose: 5 mg Documented by: Haloperidol Decanoate (Haloperidol Decanoate 50 Mg/Ml Ampul) 100 mg IM Q28D [facility] Hydroxyzine HCl (Hydroxyzine Hcl 50 Mg Tablet) 50 mg PO BID PRN PRN Reason: anxiety Last Admin: 09/09/21 22:18 Dose: 50 mg Documented by: Lactated Ringer's (Lr) 1,000 mls @ 50 mls/hr IVCONT .Q20H SULEIMAN Lactated Ringer's (Lr) 1,000 mls @ 50 mls/hr IVCONT .Q20H [facility] Lactic Acid (Ammonium Lactate 12 % Cream 140 Gm Tube) 1 appl TOPICAL BID PRN; Protocol PRN Reason: Dry Skin Last Admin: 09/08/21 10:54 Dose: 1 appl Documented by: Wise Carbonate (Wise Carbonate 300 Mg Capsule) 600 mg PO BEDTIME [facility] Last Admin: 09/09/21 20:24 Dose: Not Given Documented by: Loratadine (Loratadine 10 Mg Tablet) 10 mg PO DAILY [facility] Last Admin: 09/09/21 09:12 Dose: 10 mg Documented by: Magnesium Hydroxide (Milk Of Magnesia 30 Ml Oral.Susp) 30 ml PO DAILY PRN PRN Reason: Constipation Nicotine Polacrilex (Nicotine Polacrilex 2 Mg Gum) 2 mg BUCCAL Q2H PRN PRN Reason: nicotine cravings Omeprazole (Omeprazole 20 Mg Capsule.Dr) 20 mg PO DAILY [facility] Last Admin: 09/09/21 09:12 Dose: 20 mg Documented by: Oxycodone HCl (Oxycodone Hcl Immed Release 5 Mg Tablet) 5 mg PO ONCE PRN PRN Reason: Pain, Severe (Pain Scale 7-10) Prazosin HCl (Prazosin Hcl 5 Mg Capsule) 5 mg PO BEDTIME [facility]; Protocol Last Admin: 09/09/21 19:54 Dose: 5 mg Documented by: Senna (Sennosides 8.6 Mg Tablet) 17.2 mg PO BEDTIME [facility] Last Admin: 09/09/21 19:55 Dose: 17.2 mg Documented by: Silver Sulfadiazine (Silver Sulfadiazine 1 % Cream 20 Gm Tube) 1 appl TOPICAL BID [facility] Last Admin: 09/09/21 21:22 Dose: 1 appl Documented by: Sumatriptan Succinate (Sumatriptan Succinate 50 Mg Tablet) 50 mg PO DAILY PRN PRN Reason: Migraine Headache Topiramate (Topiramate 25 Mg Tablet) 25 mg PO BID [facility] Last Admin: 09/09/21 20:24 Dose: Not Given Documented by: Trazodone HCl (Trazodone Hcl 100 Mg Tablet) 100 mg PO BEDTIME PRN PRN Reason: Insomnia Last Admin: 09/09/21 20:22 Dose: 100 mg Documented by: Valacyclovir HCl (Valacycyclovir Hcl 500 Mg Tablet) 500 mg PO DAILY [facility] Last Admin: 09/09/21 09:13 Dose: 500 mg Documented by: Home Medications Medication Instructions Recorded Confirmed Last Taken Type omeprazole 20 mg capsule,delayed 20 mg PO DAILY 04/09/01/21 08/02/21 07:00 History release cetirizine 10 mg tablet 10 mg PO DAILY 12/24/20 09/01/21 08/02/21 08:00 History haloperidol decanoate 100 mg/mL 100 mg IM Q4W 03/30/21 09/01/21 08/16/21 History intramuscular solution (Haldol Decanoate) lorazepam 1 mg tablet 1 mg PO TID PRN 03/30/21 09/01/21 08/01/21 20:00 History prazosin 2 mg capsule 5 mg PO BEDTIME 03/30/21 09/01/21 08/01/21 20:00 History cariprazine 3 mg capsule (Vraylar) 6 mg PO DAILY 07/18/21 09/01/21 08/02/21 08:00 History fluticasone 250 mcg-salmeterol 50 1 puff INHALATION BID 08/02/21 09/01/21 08/02/21 08:00 History mcg/dose blistr powdr for inhalation (Advair Diskus) topiramate 25 mg tablet 1 tab PO BID 08/02/21 09/01/21 08/02/21 07:00 History duloxetine 60 mg capsule,delayed 1 cap PO QAM 08/03/21 09/01/21 08/02/21 08:00 History release lithium carbonate 300 mg tablet 2 tab PO BEDTIME 08/30/21 09/01/21 Unknown History acetaminophen 500 mg tablet 500 mg PO Q6H PRN 09/01/21 09/01/21 Unknown History albuterol sulfate 2.5 mg INHALATION Q4H PRN 09/01/21 09/01/21 Unknown History albuterol sulfate 90 mcg/actuation 2 inh INHALATION Q4H PRN 09/01/21 09/01/21 Unknown History breath activated powder inhaler (ProAir RespiClick) haloperidol 5 mg tablet 1 tab PO BID PRN 09/01/21 09/01/21 Unknown History hydroxyzine pamoate 50 mg capsule 1 cap PO BID PRN 09/01/21 09/01/21 Unknown History ibuprofen 600 mg tablet 600 mg PO Q8H PRN 09/01/21 09/01/21 Unknown History sumatriptan succinate 50 mg tablet 50 mg PO DAILY PRN 09/01/21 09/01/21 Unknown History trazodone 50 mg tablet 100 mg PO BEDTIME PRN 09/01/21 09/01/21 Unknown History Exam Exam Date and Time: September 10, 2021 0656 Height,Weight and Vital Signs: Height 5 ft 1 in Weight 113.568 kg Last Vital Signs Temp 98.2 F 09/10/21 06:32 Pulse 103 H 09/10/21 06:32 Resp 20 09/10/21 06:32 BP 138/89 09/10/21 06:32 Pulse Ox 96 09/10/21 06:32 Pertinent Lab Results Pertinent Lab Results: Laboratory Tests 09/01/21 09/01/21 09/01/21 20:13 20:36 20:36 WBC RBC Hgb Hct MCV MCH MCHC RDW Plt Count MPV Immature Gran % (Auto) Neut % (Auto) Lymph % (Auto) [place] % (Auto) Eos % (Auto) Baso % (Auto) Lymph # (Auto) [place] # (Auto) Eos # (Auto) Baso # (Auto) Abs Immat Gran (auto) Absolute Neuts (auto) Absolute Nucleated RBC Nucleated RBC % (auto) Sodium Potassium Chloride Carbon Dioxide Anion Gap BUN Creatinine Estim Creat Clear Calc Estimated GFR Random Glucose Calcium Total Bilirubin AST ALT Alkaline Phosphatase Total Protein Albumin Urine Test NEGATIVE Urine Opiates Screen Not Detected Urine Fentanyl Screen POSITIVE H Ur Barbiturates Screen Not Detected Ur Phencyclidine Scrn Not Detected Ur Amphetamines Screen Not Detected U Benzodiazepines Scrn Not Detected Urine Cocaine Screen Not Detected U Marijuana (THC) Screen POSITIVE H COVID-19 (RAFAL) Negative COVID-19 Clin Com See Note 09/02/21 09/02/21 09/02/21 18:38 18:38 18:38 WBC 7.4 RBC 4.32 Hgb 11.4 L Hct 36.3 L MCV 84.0 MCH 26.4 L MCHC 31.4 RDW 16.3 H Plt Count 320 MPV 11.6 Immature Gran % (Auto) 0.1 Neut % (Auto) 60.7 Lymph % (Auto) 32.9 Newton % (Auto) 5.3 Eos % (Auto) 0.7 Baso % (Auto) 0.3 Lymph # (Auto) 2.4 [place] # (Auto) 0.4 Eos # (Auto) 0.1 Baso # (Auto) 0.0 Abs Immat Gran (auto) 0.01 Absolute Neuts (auto) 4.5 Absolute Nucleated RBC 0.000 Nucleated RBC % (auto) 0.0 Sodium 140 Potassium 4.2 Chloride 114 H Carbon Dioxide 20 L Anion Gap 10 L BUN 9 Creatinine 0.77 Estim Creat Clear Calc 107.4 Estimated GFR > 60 Random Glucose 110 Calcium 9.0 Total Bilirubin 0.2 AST 15 ALT 10 Alkaline Phosphatase 62 Total Protein 6.2 L Albumin 3.6 Urine Test Urine Opiates Screen Urine Fentanyl Screen Ur Barbiturates Screen Ur Phencyclidine Scrn Ur Amphetamines Screen U Benzodiazepines Scrn Urine Cocaine Screen U Marijuana (THC) Screen COVID-19 (RAFAL) Negative COVID-19 Clin Com See Note Airway Mallampati Class: III TM Dist: >3cm Neck ROM: Full Heart: rrr Lungs: cta Assessment and Plan Assessment Anesthesia Assessment: Anesthesia Plan Discussed and Chart Reviewed Final Anesthetic Review Family History of Problems with Anesthesia: No History of Problems with Anesthesia: No NPO: Yes ASA Class: III Final Preanesthetic Review: No Changes in Pt Med Stat, Meds/Allgs Chart Reviewed and Consent Obtained/Reviewed Patient Risk: Intermediate Procedure Risk: Intermediate Anesthetic Plan Anesthetic Plan: GA Disposition: Standard PACU
--- NOTE | 2021-09-10 07:10 | MHC.SHP ---
Pre-Procedural Eval Section A Date of Service: 09/10/21 The patient is an INPATIENT: Yes Changes since office visit: Yes Patient answered all questions; No Cold of Flu in the past 2 weeks, No New Medical Problems and No Changes in Medication The History & Physical has been completed within 30 days and I have reviewed it.: Yes Section B Chief Complaint: SI Allergies: Allergies Allergy/AdvReac Type Severity Reaction Status Date / Time carbamazepine [From TEGRETOL] AdvReac Unknown NAUSEA & Verified 06/01/21 20:14 VOMITING Plan I have reviewed the history and physical and performed a pertinent physical examination on my patient. No changes have occurred unless specified.
--- NOTE | 2021-09-10 07:12 | HO.ECTPROC ---
ECT Procedure Note Diagnosis/Treatment Date of Service: 09/10/21 Diagnosis: Major Depressive Disorder Previous ECT Date: 09/08/21 Interval Clinical Notes: pt with some noted improvement continue to eval need for ect ECT Settings Device: THYMATRON DGx Electrode Placement: Bitemporal Program/Pulse Width: 0.50 Energy Percent: 100 Seizure Duration By EEG (in seconds): 18 Medications Administration General Anesthetic: Etomidate (18) Muscle Relaxant: Succinylcholine (100) Ancillary Medications Analgesics: Torodol - Pre ECT Anti-emetics: Zofran - Pre ECT Airway Management Airway Management: Bag Mask Ventilation Treatment Recommendations Notes: lower etom to 16 mg hold topamax nite prior to ect Pt Tolerated Procedure w/o Issue: Yes
[2021-09-10] MEDS: Cariprazine HCl 3 MG CAPSULE 4 MG PO (08:36)
[2021-09-10] MEDS: Topiramate 25 MG TABLET PO ×2 (08:37→20:33)
[2021-09-10] MEDS: HaloperidoL 5 MG TABLET PO ×4 (08:37→20:33)
[2021-09-10] MEDS: Omeprazole 20 MG CAPSULE.DR PO (08:37)
[2021-09-10] MEDS: DULoxetine HCl 60 MG CAPSULE.DR PO (08:37)
[2021-09-10] MEDS: Fluticasone/Vilanterol 100/25 BLST.W.DEV 1 PUFF INHALE (08:54)
[2021-09-10] MEDS: hydrOXYzine HCL 50 MG TABLET PO ×2 (09:59→21:18)
[2021-09-10] MEDS: Loratadine 10 MG TABLET PO (10:10)
[2021-09-10] MEDS: Acetaminophen 325 MG TABLET 650 MG PO (10:17)
[2021-09-10] MEDS: LORazepam 1 MG TABLET PO (11:35)
[2021-09-10] MEDS: LORazepam 2 MG/ML VIAL 1 MG IM (12:56)
--- NOTE | 2021-09-10 15:12 | P.PNPSI_ITS ---
Subjective Subjective Date of Service: 09/10/21 Reason For Visit: SI Interim History: pt seeking out MD stating she is feeling better and is not having SIBI and would like discharge. she feels the ECT is working... MD states it is too soon for discharge. as interview progresses, pt becomes somewhat labile and states she has to leave bcse the agitated behaviors of a peer are triggering for her MD declines to discharge pt today and informs her she may request a 3-day notice if she requires. she declines. agrees to continnued taper of vraylar. continues on 1:1, required multiple PRNs today for safety. per staff, pt attended 2 psych groups yesterday. got ECT this morning. feeling ready for discharge, denying SIBI. c/o AH, a few dissociative episodes. agitated after ECT today. Mental Status Exam Mental Status Exam Narrative: appropriately dressed and groomed, many scars from cutting across forearms. bandage on her forehead. no PMA/PMR. hand tremor noted. cooperative with interview. speech nml in rate, tone. decr latency, incr loudness and amount. thoughts linear and logical. affect constricted, somewhat labile (teary), appropriate to context, normo-intense. denies SIBI. Diagnostics Vital Signs (24Hr): Vital Signs - 24 hr 09/09/21 18:00 09/10/21 06:00 09/10/21 06:10 Temperature 97.7 F 97.6 F 97.6 F Pulse Rate 98 102 H 102 H Respiratory Rate 16 Blood Pressure 124/81 142/87 H 142/87 H Pulse Oximetry 93 99 09/10/21 06:32 09/10/21 07:31 09/10/21 07:36 Temperature 98.2 F 99.3 F Pulse Rate 103 H 99 114 H Respiratory Rate 20 23 H 23 H Blood Pressure 138/89 136/88 132/91 H Pulse Oximetry 96 94 94 09/10/21 07:40 09/10/21 07:45 09/10/21 08:04 Temperature 97.8 F Pulse Rate 111 H 113 H 111 H Respiratory Rate 24 H 26 H 18 Blood Pressure 152/95 H 145/90 H 134/89 Pulse Oximetry 95 95 96 09/10/21 08:30 Temperature 98.2 F Pulse Rate 110 H Respiratory Rate 18 Blood Pressure 132/52 L Pulse Oximetry 96 BMI result Verdana 4 Body Mass Index Verdana 4 47.2 Verdana 4 Verdana 4 Labs Results: 09/02/21 18:38 09/02/21 18:38 Medications Medications Current Medications Acetaminophen (Acetaminophen 325 Mg Tablet) 650 mg PO Q6H PRN PRN Reason: Pain (Scale Score 1-3) Last Admin: 09/10/21 10:17 Dose: 650 mg Documented by: Al Hydroxide/Mg Hydroxide (Magnesium Hydrox/Alum Hydrox 30 Ml Oral.Susp) 30 ml PO Q6H PRN PRN Reason: Heartburn/Nausea Albuterol Sulfate (Albuterol Sulfate 90 Mcg 8 Gm Inhaler) 2 puff INHALE Q4H PRN PRN Reason: Wheezing Last Admin: 09/05/21 22:02 Dose: 2 puff Documented by: Cariprazine (Cariprazine Hcl 1.5 Mg Capsule) 1.5 mg PO DAILY [facility] Docusate Sodium (Docusate Sodium 100 Mg Capsule) 100 mg PO BEDTIME PRN PRN Reason: Constipation Duloxetine HCl (Duloxetine Hcl 60 Mg Capsule.Dr) 60 mg PO DAILY [facility] Last Admin: 09/10/21 08:37 Dose: 60 mg Documented by: Fluticasone/Vilanterol (Fluticasone/Vilanterol 100/25 Blst.W.Dev) 1 puff INHALE RDAILY [facility] Last Admin: 09/10/21 08:54 Dose: 1 puff Documented by: Haloperidol (Haloperidol 5 Mg Tablet) 5 mg PO Q4H PRN PRN Reason: Agitation Last Admin: 09/10/21 11:35 Dose: 5 mg Documented by: Haloperidol (Haloperidol 5 Mg Tablet) 5 mg PO TID [facility] Last Admin: 09/10/21 08:37 Dose: 5 mg Documented by: Haloperidol Decanoate (Haloperidol Decanoate 50 Mg/Ml Ampul) 100 mg IM Q28D [facility] Hydroxyzine HCl (Hydroxyzine Hcl 50 Mg Tablet) 50 mg PO BID PRN PRN Reason: anxiety Last Admin: 09/10/21 09:59 Dose: 50 mg Documented by: Lactic Acid (Ammonium Lactate 12 % Cream 140 Gm Tube) 1 appl TOPICAL BID PRN; Protocol PRN Reason: Dry Skin Last Admin: 09/08/21 10:54 Dose: 1 appl Documented by: [place] Carbonate ([place] Carbonate 300 Mg Capsule) 600 mg PO BEDTIME [facility] Last Admin: 09/09/21 20:24 Dose: Not Given Documented by: Loratadine (Loratadine 10 Mg Tablet) 10 mg PO DAILY [facility] Last Admin: 09/10/21 10:10 Dose: 10 mg Documented by: Lorazepam (Lorazepam 1 Mg Tablet) 1 mg PO Q4H PRN PRN Reason: agitation Last Admin: 09/10/21 11:35 Dose: 1 mg Documented by: Magnesium Hydroxide (Milk Of Magnesia 30 Ml Oral.Susp) 30 ml PO DAILY PRN PRN Reason: Constipation Nicotine Polacrilex (Nicotine Polacrilex 2 Mg Gum) 2 mg BUCCAL Q2H PRN PRN Reason: nicotine cravings Omeprazole (Omeprazole 20 Mg Capsule.Dr) 20 mg PO DAILY [facility] Last Admin: 09/10/21 08:37 Dose: 20 mg Documented by: Prazosin HCl (Prazosin Hcl 5 Mg Capsule) 5 mg PO BEDTIME [facility]; Protocol Last Admin: 09/09/21 19:54 Dose: 5 mg Documented by: Senna (Sennosides 8.6 Mg Tablet) 17.2 mg PO BEDTIME [facility] Last Admin: 09/09/21 19:55 Dose: 17.2 mg Documented by: Silver Sulfadiazine (Silver Sulfadiazine 1 % Cream 20 Gm Tube) 1 appl TOPICAL BID [facility] Last Admin: 09/09/21 21:22 Dose: 1 appl Documented by: Sumatriptan Succinate (Sumatriptan Succinate 50 Mg Tablet) 50 mg PO DAILY PRN PRN Reason: Migraine Headache Topiramate (Topiramate 25 Mg Tablet) 25 mg PO BID [facility] Last Admin: 09/10/21 08:37 Dose: 25 mg Documented by: Trazodone HCl (Trazodone Hcl 100 Mg Tablet) 100 mg PO BEDTIME PRN PRN Reason: Insomnia Last Admin: 09/09/21 20:22 Dose: 100 mg Documented by: Valacyclovir HCl (Valacycyclovir Hcl 500 Mg Tablet) 500 mg PO DAILY [facility] Last Admin: 09/10/21 08:37 Dose: 500 mg Documented by: Allergies Allergies Allergy/AdvReac Type Severity Reaction Status Date / Time carbamazepine [From AdvReac Unknown NAUSEA & Verified 06/01/21 20:14 TEGRETOL] VOMITING Assessment & Plan Assessment & Plan (1) Suicidal ideation: Status: Acute Code(s): R45.851 - Suicidal ideations Assessment and Plan: ongoing (2) Chronic post-traumatic stress disorder (PTSD): Status: Chronic Code(s): F43.12 - Post-traumatic stress disorder, chronic Assessment and Plan: continue outpt meds aside from taper of vraylar. (3) Lacerations of multiple sites of right arm: Status: Acute Code(s): S41.111A - Laceration without foreign body of right upper arm, initial encounter Assessment and Plan: healing well (4) Borderline personality disorder: Status: Chronic Code(s): F60.3 - Borderline personality disorder Assessment and Plan: short hospitalization if possible. Plan 1:1 for safety. continue home medications; T/C medication holiday per conversation with [facility]i outpt prescriber.. next haldol decanoate shot due 09/16. haldol 5 and ativan 1 PRNs for agitation. ECT begun friday 09/08 - next NPO after 7 pm on . Vanna perdomo Jazlyn amenable to DC vraylar, supports medication holiday. vraylar taper underway. I spent minutes with the patient and/or on the patient floor today, greater than?50% of which was spent counseling/coordinating care. Reason for contiued inpatient stay Substantial Risk for: harm to self, inability to function and rapid decompensation
[2021-09-10] MEDS: bisacodyL 5 MG TABLET.DR 10 MG PO (15:15)
[2021-09-10] MEDS: Prazosin HCL 5 MG CAPSULE PO (20:33)
[2021-09-10] MEDS: Lithium Carbonate 300 MG CAPSULE 600 MG PO (20:33)
[2021-09-10] MEDS: traZODone HCL 100 MG TABLET PO (21:18)
[2021-09-10] MEDS: Ammonium Lactate 12 % Cream 140 GM TUBE 1 APPL TOPICAL (21:51)
[2021-09-10] MEDS: Silver Sulfadiazine 1 % Cream 20 GM TUBE 1 APPL TOPICAL (21:51)
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
[2021-09-11 06:00] VITALS: BP 167/86; PULSE 104; RESP 16; TEMP 36.8; O2SAT 97
[2021-09-11 07:00] VITALS: BMI 46.5
[2021-09-11] MEDS: Cariprazine HCl 1.5 MG CAPSULE PO (08:09)
[2021-09-11] MEDS: Omeprazole 20 MG CAPSULE.DR PO (08:09)
[2021-09-11] MEDS: Fluticasone/Vilanterol 100/25 BLST.W.DEV 1 PUFF INHALE (08:09)
[2021-09-11] MEDS: DULoxetine HCl 60 MG CAPSULE.DR PO (08:09)
[2021-09-11] MEDS: HaloperidoL 5 MG TABLET PO ×4 (08:09→19:54)
[2021-09-11] MEDS: Topiramate 25 MG TABLET PO (08:09)
[2021-09-11] MEDS: Loratadine 10 MG TABLET PO (08:10)
[2021-09-11] MEDS: Acetaminophen 325 MG TABLET 650 MG PO (08:43)
[2021-09-11] MEDS: Ammonium Lactate 12 % Cream 140 GM TUBE 1 APPL TOPICAL ×2 (08:44→19:55)
[2021-09-11] MEDS: LORazepam 1 MG TABLET PO ×2 (08:44→18:23)
[2021-09-11] MEDS: Silver Sulfadiazine 1 % Cream 20 GM TUBE 1 APPL TOPICAL ×2 (08:44→19:55)
[2021-09-11] MEDS: SUMAtriptan succinate 50 MG TABLET PO (08:45)
--- NOTE | 2021-09-11 15:26 | HO.PSYCHPN ---
Subjective Subjective Date of Service: 09/11/21 Reason For Visit: SI Interim History: pt seeks out MD in milieu and apologizes for her behavior yesterday, which she believes was disrespectful. she appears much more calm and less labile than yesterday. she endorses strange dreams, so trazodone was DCed. she also agrees to increase prazosin from 5 to 7 mg tonight for nightmares and insomnia. vraylar DCed. ECT for tomorrow. discuss plan for her to remain in hospital for full course. states she spoke with lead java programmer at her shelter who was able to communicate to her the case for her remaining in the hospital for now. she expresses gratitude. per staff, had a difficult day yesterday. lots of PRNs. got ativan 1 mg IM after PO was inadequate. was in restraint chair for 35 minutes last evening after trying to strangle herself with mask string. Mental Status Exam Mental Status Exam Narrative: appropriately dressed and groomed, many scars from cutting across forearms, some lacerations in various stages of healing. no bandage on her forehead, vertical lac visible, closing. no PMA/PMR. hand tremor noted. cooperative with interview. speech nml in rate, tone, latency, loudness and amount. thoughts linear and logical. affect brighter and more flexible, appropriate to context, normo-intense, non-labile. +SIBI. Diagnostics Vital Signs (24Hr): Vital Signs - 24 hr 09/10/21 20:00 09/10/21 20:15 09/10/21 20:38 Temperature Pulse Rate 110 H 98 104 H Respiratory Rate Blood Pressure 131/78 134/78 136/81 Pulse Oximetry 98 97 09/11/21 06:00 Temperature 98.3 F Pulse Rate 104 H Respiratory Rate 16 Blood Pressure 167/86 H Pulse Oximetry 97 BMI result Body Mass Index 46.5 Labs Results: 09/02/21 18:38 09/02/21 18:38 Medications Medications Current Medications Acetaminophen (Acetaminophen 325 Mg Tablet) 650 mg PO Q6H PRN PRN Reason: Pain (Scale Score 1-3) Last Admin: 09/11/21 08:43 Dose: 650 mg Documented by: Al Hydroxide/Mg Hydroxide (Magnesium Hydrox/Alum Hydrox 30 Ml Oral.Susp) 30 ml PO Q6H PRN PRN Reason: Heartburn/Nausea Albuterol Sulfate (Albuterol Sulfate 90 Mcg 8 Gm Inhaler) 2 puff INHALE Q4H PRN PRN Reason: Wheezing Last Admin: 09/05/21 22:02 Dose: 2 puff Documented by: Docusate Sodium (Docusate Sodium 100 Mg Capsule) 100 mg PO BEDTIME PRN PRN Reason: Constipation Duloxetine HCl (Duloxetine Hcl 60 Mg Capsule.Dr) 60 mg PO DAILY [facility] Last Admin: 09/11/21 08:09 Dose: 60 mg Documented by: Fluticasone/Vilanterol (Fluticasone/Vilanterol 100/25 Blst.W.Dev) 1 puff INHALE RDAILY [facility] Last Admin: 09/11/21 08:09 Dose: 1 puff Documented by: Haloperidol (Haloperidol 5 Mg Tablet) 5 mg PO Q4H PRN PRN Reason: Agitation Last Admin: 09/10/21 11:35 Dose: 5 mg Documented by: Haloperidol (Haloperidol 5 Mg Tablet) 5 mg PO TID [facility] Last Admin: 09/11/21 14:03 Dose: 5 mg Documented by: Haloperidol Decanoate (Haloperidol Decanoate 50 Mg/Ml Ampul) 100 mg IM Q28D [facility] Hydroxyzine HCl (Hydroxyzine Hcl 50 Mg Tablet) 50 mg PO BID PRN PRN Reason: anxiety Last Admin: 09/10/21 21:18 Dose: 50 mg Documented by: Lactic Acid (Ammonium Lactate 12 % Cream 140 Gm Tube) 1 appl TOPICAL BID PRN; Protocol PRN Reason: Dry Skin Last Admin: 09/11/21 08:44 Dose: 1 appl Documented by: [place] Carbonate ([place] Carbonate 300 Mg Capsule) 600 mg PO BEDTIME [facility] Last Admin: 09/10/21 20:33 Dose: 600 mg Documented by: Loratadine (Loratadine 10 Mg Tablet) 10 mg PO DAILY [facility] Last Admin: 09/11/21 08:10 Dose: 10 mg Documented by: Lorazepam (Lorazepam 1 Mg Tablet) 1 mg PO Q4H PRN PRN Reason: agitation Last Admin: 09/11/21 08:44 Dose: 1 mg Documented by: Magnesium Hydroxide (Milk Of Magnesia 30 Ml Oral.Susp) 30 ml PO DAILY PRN PRN Reason: Constipation Nicotine Polacrilex (Nicotine Polacrilex 2 Mg Gum) 2 mg BUCCAL Q2H PRN PRN Reason: nicotine cravings Omeprazole (Omeprazole 20 Mg Capsule.Dr) 20 mg PO DAILY [facility] Last Admin: 09/11/21 08:09 Dose: 20 mg Documented by: Prazosin HCl (Prazosin Hcl 1 Mg Capsule) 7 mg PO BEDTIME [facility]; Protocol Senna (Sennosides 8.6 Mg Tablet) 17.2 mg PO BEDTIME [facility] Last Admin: 09/10/21 22:16 Dose: Not Given Documented by: Silver Sulfadiazine (Silver Sulfadiazine 1 % Cream 20 Gm Tube) 1 appl TOPICAL BID [facility] Last Admin: 09/11/21 08:44 Dose: 1 appl Documented by: Sumatriptan Succinate (Sumatriptan Succinate 50 Mg Tablet) 50 mg PO DAILY PRN PRN Reason: Migraine Headache Last Admin: 09/11/21 08:45 Dose: 50 mg Documented by: Topiramate (Topiramate 25 Mg Tablet) 25 mg PO BID [facility] Last Admin: 09/11/21 08:09 Dose: 25 mg Documented by: Valacyclovir HCl (Valacycyclovir Hcl 500 Mg Tablet) 500 mg PO DAILY [facility] Last Admin: 09/11/21 08:10 Dose: 500 mg Documented by: Allergies Allergies Allergy/AdvReac Type Severity Reaction Status Date / Time carbamazepine [From TEGRETOL] AdvReac Unknown NAUSEA & Verified 06/01/21 20:14 VOMITING Assessment & Plan Assessment & Plan (1) Suicidal ideation: Status: Acute Code(s): R45.851 - Suicidal ideations Assessment and Plan: ongoing (2) Chronic post-traumatic stress disorder (PTSD): Status: Chronic Code(s): F43.12 - Post-traumatic stress disorder, chronic Assessment and Plan: continue outpt meds aside from taper of vraylar. vraylar DCed as of 09/12. (3) Lacerations of multiple sites of right arm: Status: Acute Code(s): S41.111A - Laceration without foreign body of right upper arm, initial encounter Assessment and Plan: healing well (4) Borderline personality disorder: Status: Chronic Code(s): F60.3 - Borderline personality disorder Assessment and Plan: short hospitalization if possible. Plan 1:1 for safety. continue home medications; T/C medication holiday per conversation with qamar agueropt prescriber.. next haldol decanoate shot due 09/16. haldol 5 and ativan 1 PRNs for agitation. ECT begun friday 09/08 - next NPO after 7 pm on . Vanna perdomo Jazlyn amenable to DC vraylar, supports medication holiday. vraylar taper completed as of 09/12. I spent minutes with the patient and/or on the patient floor today, greater than?50% of which was spent counseling/coordinating care. Reason for contiued inpatient stay Substantial Risk for: harm to self, inability to function and rapid decompensation
[2021-09-11 19:45] VITALS: BP 129/80; PULSE 99; RESP 16; TEMP 36.6; O2SAT 98
[2021-09-11] MEDS: Prazosin HCL 1 MG CAPSULE 7 MG PO (19:53)
[2021-09-11] MEDS: hydrOXYzine HCL 50 MG TABLET PO (19:58)
[2021-09-12] VITALS (12 sets, daily range): BP systolic 119–142; BP diastolic 63–97; PULSE 90–105; RESP 16–24; TEMP 36.4–37.3; O2SAT 91–100; BMI 50.1
--- NOTE | 2021-09-12 06:46 | HO.ANESPROP2 ---
[facility] Active Problems Active Problems: All Active Problems (Updated 09/04/21 @ 16:40 by Bubba Au MD) Pre-op evaluation (Acute) Suicidal ideation (Acute) Schizoaffective disorder, depressive type (Chronic) Hernia (Chronic) Chronic post-traumatic stress disorder (PTSD) (Chronic) Sprain of anterior cruciate ligament of right knee (Acute) Self-inflicted injury (Acute) Lacerations of multiple sites of right arm (Acute) Injury of ligament of right knee (Acute) Increased BMI (Acute) GERD (gastroesophageal reflux disease) (Acute) Borderline personality disorder (Chronic) Past Medical History Medical History Acute post-traumatic stress disorder Adjustment disorder Anxiety Asthma Borderline personality disorder Chronic post-traumatic stress disorder (PTSD) COPD (chronic obstructive pulmonary disease) Depression GERD (gastroesophageal reflux disease) Increased BMI Injury, self-inflicted Intentional self-harm PTSD (post-traumatic stress disorder) Recurrent major depression-severe Schizoaffective disorder Self-harming behavior Suicidal ideation Suicidal ideation Family History Family history of problems with anesthesia: No Surgical History History of Problems with Anesthesia: No Social History Social History Household Members: Other Household Members Other:: [facility] Housing: Apartment Housing Other:: residential home Do you presently have visiting nurse or other home services: No Alcohol intake: unknown Patient Tobacco Use Status: Former Tobacco user Quit Date: 02-19-21 Tobacco use type: Cigarette Cigarette Packs Per Day: 1 Cigarettes Per Day: 20.0 Years Smoked: 17 e-Cigarette/Vaping Use: Never Used Second Hand Smoke Exposure: Yes Use of substances other than those prescribed or required for medical reasons: Yes Substance Use Type: Marijuana and Opiates Currently Displaying Signs/Symptoms of Drug Intoxication Withdrawal: No Spiritual Healthcare Practices: n/a Rastafarian Healthcare Practices: n/a Cultural Healthcare Practices: n/a Are you DNR?: No Advance Directives: No Do you have thoughts of harming others: None Do you have a plan to hurt others: No Plan Recently lost weight without trying: No Nutrition Risks: No Nutritional Risk Patient : No : No Poor oral hygiene: No service: No Sexual orientation: Did not discuss Meds Allergies Allergy/AdvReac Type Severity Reaction Status Date / Time carbamazepine [From TEGRETOL] AdvReac Unknown NAUSEA & Verified 06/01/21 20:14 VOMITING Active Medications: Current Medications Acetaminophen (Acetaminophen 325 Mg Tablet) 650 mg PO Q6H PRN PRN Reason: Pain (Scale Score 1-3) Last Admin: 09/11/21 08:43 Dose: 650 mg Documented by: Al Hydroxide/Mg Hydroxide (Magnesium Hydrox/Alum Hydrox 30 Ml Oral.Susp) 30 ml PO Q6H PRN PRN Reason: Heartburn/Nausea Albuterol Sulfate (Albuterol Sulfate 90 Mcg 8 Gm Inhaler) 2 puff INHALE Q4H PRN PRN Reason: Wheezing Last Admin: 09/05/21 22:02 Dose: 2 puff Documented by: Docusate Sodium (Docusate Sodium 100 Mg Capsule) 100 mg PO BEDTIME PRN PRN Reason: Constipation Duloxetine HCl (Duloxetine Hcl 60 Mg Capsule.Dr) 60 mg PO DAILY [facility] Last Admin: 09/11/21 08:09 Dose: 60 mg Documented by: Fluticasone/Vilanterol (Fluticasone/Vilanterol 100/25 Blst.W.Dev) 1 puff INHALE RDAILY [facility] Last Admin: 09/11/21 08:09 Dose: 1 puff Documented by: Haloperidol (Haloperidol 5 Mg Tablet) 5 mg PO Q4H PRN PRN Reason: Agitation Last Admin: 09/11/21 18:23 Dose: 5 mg Documented by: Haloperidol (Haloperidol 5 Mg Tablet) 5 mg PO TID [facility] Last Admin: 09/11/21 19:54 Dose: 5 mg Documented by: Haloperidol Decanoate (Haloperidol Decanoate 50 Mg/Ml Ampul) 100 mg IM Q28D [facility] Hydroxyzine HCl (Hydroxyzine Hcl 50 Mg Tablet) 50 mg PO BID PRN PRN Reason: anxiety Last Admin: 09/11/21 19:58 Dose: 50 mg Documented by: Lactic Acid (Ammonium Lactate 12 % Cream 140 Gm Tube) 1 appl TOPICAL BID PRN; Protocol PRN Reason: Dry Skin Last Admin: 09/11/21 19:55 Dose: 1 appl Documented by: [place] Carbonate ([place] Carbonate 300 Mg Capsule) 600 mg PO BEDTIME [facility] Last Admin: 09/11/21 19:57 Dose: Not Given Documented by: Loratadine (Loratadine 10 Mg Tablet) 10 mg PO DAILY [facility] Last Admin: 09/11/21 08:10 Dose: 10 mg Documented by: Lorazepam (Lorazepam 1 Mg Tablet) 1 mg PO Q4H PRN PRN Reason: agitation Last Admin: 09/11/21 18:23 Dose: 1 mg Documented by: Magnesium Hydroxide (Milk Of Magnesia 30 Ml Oral.Susp) 30 ml PO DAILY PRN PRN Reason: Constipation Nicotine Polacrilex (Nicotine Polacrilex 2 Mg Gum) 2 mg BUCCAL Q2H PRN PRN Reason: nicotine cravings Omeprazole (Omeprazole 20 Mg Capsule.Dr) 20 mg PO DAILY [facility] Last Admin: 09/11/21 08:09 Dose: 20 mg Documented by: Prazosin HCl (Prazosin Hcl 1 Mg Capsule) 7 mg PO BEDTIME [facility]; Protocol Last Admin: 09/11/21 19:53 Dose: 7 mg Documented by: Senna (Sennosides 8.6 Mg Tablet) 17.2 mg PO BEDTIME [facility] Last Admin: 09/11/21 19:53 Dose: Not Given Documented by: Silver Sulfadiazine (Silver Sulfadiazine 1 % Cream 20 Gm Tube) 1 appl TOPICAL BID [facility] Last Admin: 09/11/21 19:55 Dose: 1 appl Documented by: Sumatriptan Succinate (Sumatriptan Succinate 50 Mg Tablet) 50 mg PO DAILY PRN PRN Reason: Migraine Headache Last Admin: 09/11/21 08:45 Dose: 50 mg Documented by: Topiramate (Topiramate 25 Mg Tablet) 25 mg PO BID [facility] Last Admin: 09/11/21 19:54 Dose: Not Given Documented by: Valacyclovir HCl (Valacycyclovir Hcl 500 Mg Tablet) 500 mg PO DAILY [facility] Last Admin: 09/11/21 08:10 Dose: 500 mg Documented by: Home Medications Medication Instructions Recorded Confirmed Last Taken Type omeprazole 20 mg capsule,delayed 20 mg PO DAILY 11/29/20 09/01/21 08/02/21 07:00 History release cetirizine 10 mg tablet 10 mg PO DAILY 12/24/20 09/01/21 08/02/21 08:00 History haloperidol decanoate 100 mg/mL 100 mg IM Q4W 03/30/21 09/01/21 08/16/21 History intramuscular solution (Haldol Decanoate) lorazepam 1 mg tablet 1 mg PO TID PRN 03/30/21 09/01/21 08/01/21 20:00 History prazosin 2 mg capsule 5 mg PO BEDTIME 03/30/21 09/01/21 08/01/21 20:00 History cariprazine 3 mg capsule (Vraylar) 6 mg PO DAILY 07/18/21 09/01/21 08/02/21 08:00 History fluticasone 250 mcg-salmeterol 50 1 puff INHALATION BID 08/02/21 09/01/21 08/02/21 08:00 History mcg/dose blistr powdr for inhalation (Advair Diskus) topiramate 25 mg tablet 1 tab PO BID 08/02/21 09/01/21 08/02/21 07:00 History duloxetine 60 mg capsule,delayed 1 cap PO QAM 08/03/21 09/01/21 08/02/21 08:00 History release lithium carbonate 300 mg tablet 2 tab PO BEDTIME 08/30/21 09/01/21 Unknown History acetaminophen 500 mg tablet 500 mg PO Q6H PRN 09/01/21 09/01/21 Unknown History albuterol sulfate 2.5 mg INHALATION Q4H PRN 09/01/21 09/01/21 Unknown History albuterol sulfate 90 mcg/actuation 2 inh INHALATION Q4H PRN 09/01/21 09/01/21 Unknown History breath activated powder inhaler (ProAir RespiClick) haloperidol 5 mg tablet 1 tab PO BID PRN 09/01/21 09/01/21 Unknown History hydroxyzine pamoate 50 mg capsule 1 cap PO BID PRN 09/01/21 09/01/21 Unknown History ibuprofen 600 mg tablet 600 mg PO Q8H PRN 09/01/21 09/01/21 Unknown History sumatriptan succinate 50 mg tablet 50 mg PO DAILY PRN 09/01/21 09/01/21 Unknown History trazodone 50 mg tablet 100 mg PO BEDTIME PRN 09/01/21 09/01/21 Unknown History Exam Exam Date and Time: September 12, 2021 0646 Height,Weight and Vital Signs: Height 4 ft 11 in Weight 112.491 kg Last Vital Signs Temp 98.5 F 09/12/21 06:21 Pulse 103 H 09/12/21 06:21 Resp 17 09/12/21 06:21 BP 131/97 H 09/12/21 06:21 Pulse Ox 95 09/12/21 06:21 Pertinent Lab Results Pertinent Lab Results: Laboratory Tests 09/01/21 09/01/21 09/01/21 20:13 20:36 20:36 WBC RBC Hgb Hct MCV MCH MCHC RDW Plt Count MPV Immature Gran % (Auto) Neut % (Auto) Lymph % (Auto) [place] % (Auto) Eos % (Auto) Baso % (Auto) Lymph # (Auto) [place] # (Auto) Eos # (Auto) Baso # (Auto) Abs Immat Gran (auto) Absolute Neuts (auto) Absolute Nucleated RBC Nucleated RBC % (auto) Sodium Potassium Chloride Carbon Dioxide Anion Gap BUN Creatinine Estim Creat Clear Calc Estimated GFR Random Glucose Calcium Total Bilirubin AST ALT Alkaline Phosphatase Total Protein Albumin Urine Test NEGATIVE Urine Opiates Screen Not Detected Urine Fentanyl Screen POSITIVE H Ur Barbiturates Screen Not Detected Ur Phencyclidine Scrn Not Detected Ur Amphetamines Screen Not Detected U Benzodiazepines Scrn Not Detected Urine Cocaine Screen Not Detected U Marijuana (THC) Screen POSITIVE H COVID-19 (RAFAL) Negative COVID-19 Clin Com See Note 09/02/21 09/02/21 09/02/21 18:38 18:38 18:38 WBC 7.4 RBC 4.32 Hgb 11.4 L Hct 36.3 L MCV 84.0 MCH 26.4 L MCHC 31.4 RDW 16.3 H Plt Count 320 MPV 11.6 Immature Gran % (Auto) 0.1 Neut % (Auto) 60.7 Lymph % (Auto) 32.9 [place] % (Auto) 5.3 Eos % (Auto) 0.7 Baso % (Auto) 0.3 Lymph # (Auto) 2.4 [place] # (Auto) 0.4 Eos # (Auto) 0.1 Baso # (Auto) 0.0 Abs Immat Gran (auto) 0.01 Absolute Neuts (auto) 4.5 Absolute Nucleated RBC 0.000 Nucleated RBC % (auto) 0.0 Sodium 140 Potassium 4.2 Chloride 114 H Carbon Dioxide 20 L Anion Gap 10 L BUN 9 Creatinine 0.77 Estim Creat Clear Calc 107.4 Estimated GFR > 60 Random Glucose 110 Calcium 9.0 Total Bilirubin 0.2 AST 15 ALT 10 Alkaline Phosphatase 62 Total Protein 6.2 L Albumin 3.6 Urine Test Urine Opiates Screen Urine Fentanyl Screen Ur Barbiturates Screen Ur Phencyclidine Scrn Ur Amphetamines Screen U Benzodiazepines Scrn Urine Cocaine Screen U Marijuana (THC) Screen COVID-19 (RAFAL) Negative COVID-19 Clin Com See Note Airway Mallampati Class: III TM Dist: >3cm Neck ROM: Full Heart: rrr Lungs: cta Assessment and Plan Assessment Anesthesia Assessment: Anesthesia Plan Discussed and Chart Reviewed Final Anesthetic Review Family History of Problems with Anesthesia: No History of Problems with Anesthesia: No NPO: Yes ASA Class: III Final Preanesthetic Review: No Changes in Pt Med Stat, Meds/Allgs Chart Reviewed and Consent Obtained/Reviewed Patient Risk: Intermediate Procedure Risk: Intermediate Anesthetic Plan Anesthetic Plan: GA Disposition: Standard PACU
--- NOTE | 2021-09-12 07:40 | MHC.SHP ---
Pre-Procedural Eval Section A Date of Service: 09/12/21 The patient is an INPATIENT: Yes Changes since office visit: Yes New Medical Problems, Yes Changes in Medication and Yes Patient answered all questions; No Cold of Flu in the past 2 weeks The History & Physical has been completed within 30 days and I have reviewed it.: Yes Section B Chief Complaint: SI Allergies: Allergies Allergy/AdvReac Type Severity Reaction Status Date / Time carbamazepine [From TEGRETOL] AdvReac Unknown NAUSEA & Verified 06/01/21 20:14 VOMITING Plan I have reviewed the history and physical and performed a pertinent physical examination on my patient. No changes have occurred unless specified.
--- NOTE | 2021-09-12 07:41 | HO.ECTPROC ---
ECT Procedure Note Diagnosis/Treatment Date of Service: 09/12/21 Diagnosis: Major Depressive Disorder and Other (ptsd) Previous ECT Date: 09/10/21 Interval Clinical Notes: pt anxious dysphoric denies si ECT Settings Device: THYMATRON DGx Electrode Placement: Bitemporal Program/Pulse Width: 0.50 Energy Percent: 100 Seizure Duration By EEG (in seconds): 25 Medications Administration General Anesthetic: Etomidate (16) Muscle Relaxant: Succinylcholine (100) Ancillary Medications Analgesics: Torodol - Pre ECT Anti-emetics: Zofran - Pre ECT Miscillaneous Medications: Propofol Airway Management Airway Management: Bag Mask Ventilation Treatment Recommendations No Changes Recommended: No change Notes: better sz with dec etom 16 mg Pt Tolerated Procedure w/o Issue: Yes
[2021-09-12] MEDS: Fluticasone/Vilanterol 100/25 BLST.W.DEV 1 PUFF INHALE (08:59)
[2021-09-12] MEDS: Omeprazole 20 MG CAPSULE.DR PO (09:00)
[2021-09-12] MEDS: HaloperidoL 5 MG TABLET PO ×2 (09:00→12:15)
[2021-09-12] MEDS: Topiramate 25 MG TABLET PO ×2 (09:00→21:27)
[2021-09-12] MEDS: DULoxetine HCl 60 MG CAPSULE.DR PO (09:00)
[2021-09-12] MEDS: Loratadine 10 MG TABLET PO (09:00)
[2021-09-12] MEDS: Acetaminophen 325 MG TABLET 650 MG PO ×2 (11:18→21:44)
[2021-09-12] MEDS: LORazepam 1 MG TABLET PO ×2 (12:15→21:45)
--- NOTE | 2021-09-12 13:10 | P.PNPSI_ITS ---
Subjective Subjective Date of Service: 09/12/21 Reason For Visit: SI Interim History: pt seen in her room, appears agitated. tremulous, tearful. reports Dr. Silva informed her if she returned to [facility] he would not give her any more ECT treatments. suggests this was not the message he was trying to convey and that she should speak with him directly about her reaction. she agrees. otherwise makes the case she is doing quite well and refraining from harming herself here. agreeable to increase prazosin to 8 mg at bedtime for nightmares and insomnia. also interested in tapering PO haldol that was added last weekend. per staff, was very anxious yesterday due to it's having been her bio mom's bday. endorsing nightmares, SI without plan. [facility] telling her to suicide. some hair pulling. slept [id number]. c/o disrupted sleep. also c/o yeast infection Sx and right ear pain. per RN ar, right ear appears infected, hospitalist consult requested. Mental Status Exam Mental Status Exam Narrative: appropriately dressed and groomed, many scars from cutting across forearms, some lacerations in various stages of healing. no bandage on her forehead, vertical lac visible, closing. mild PMA of shaking present. hand tremor noted. cooperative with interview. speech incr in rate. nml tone, decr latency, incr loudness and amount. thoughts linear, logic strained. affect constricted, appropriate to context, hyper-intense, min-labile (tearful, agitated). Diagnostics Vital Signs (24Hr): Vital Signs - 24 hr 09/11/21 19:45 09/12/21 05:25 09/12/21 05:38 Temperature 97.8 F 97.9 F 97.9 F Pulse Rate 99 102 H 102 H Respiratory Rate 16 17 17 Blood Pressure 129/80 142/87 H 142/87 H Pulse Oximetry 98 98 98 09/12/21 06:21 09/12/21 07:55 09/12/21 08:00 Temperature 98.5 F 99.2 F Pulse Rate 103 H 93 96 Respiratory Rate 17 22 H 22 H Blood Pressure 131/97 H 135/71 131/79 Pulse Oximetry 95 91 L 99 09/12/21 08:05 09/12/21 08:09 09/12/21 08:24 Temperature Pulse Rate 95 102 H 105 H Respiratory Rate 24 H 20 20 Blood Pressure 128/79 125/79 128/83 Pulse Oximetry 100 94 96 09/12/21 08:39 09/12/21 08:53 09/12/21 08:54 Temperature 97.5 F 97.6 F 97.6 F Pulse Rate 103 H 96 96 Respiratory Rate 20 16 16 Blood Pressure 119/78 139/63 139/65 Pulse Oximetry 96 98 BMI result [place] 4 Body Mass Index [place] 4 50.1 Ver[place] 4 [place] 4 Labs Results: 09/02/21 18:38 09/02/21 18:38 Medications Medications Current Medications Acetaminophen (Acetaminophen 325 Mg Tablet) 650 mg PO Q6H PRN PRN Reason: Pain (Scale Score 1-3) Last Admin: 09/12/21 11:18 Dose: 650 mg Documented by: Al Hydroxide/Mg Hydroxide (Magnesium Hydrox/Alum Hydrox 30 Ml Oral.Susp) 30 ml PO Q6H PRN PRN Reason: Heartburn/Nausea Albuterol Sulfate (Albuterol Sulfate 90 Mcg 8 Gm Inhaler) 2 puff INHALE Q4H PRN PRN Reason: Wheezing Last Admin: 09/05/21 22:02 Dose: 2 puff Documented by: Heparin Sodium (Porcine) 50 (units/ Sodium Chloride 5 ml) 0 units IVFLUSH DAILY [facility] Last Admin: 09/12/21 09:04 Dose: Not Given Documented by: Docusate Sodium (Docusate Sodium 100 Mg Capsule) 100 mg PO BEDTIME PRN PRN Reason: Constipation Duloxetine HCl (Duloxetine Hcl 60 Mg Capsule.Dr) 60 mg PO DAILY [facility] Last Admin: 09/12/21 09:00 Dose: 60 mg Documented by: Fluticasone/Vilanterol (Fluticasone/Vilanterol 100/25 Blst.W.Dev) 1 puff INHALE RDAILY [facility] Last Admin: 09/12/21 08:59 Dose: 1 puff Documented by: Haloperidol (Haloperidol 5 Mg Tablet) 5 mg PO Q4H PRN PRN Reason: Agitation Last Admin: 09/12/21 12:15 Dose: 5 mg Documented by: Haloperidol (Haloperidol 1 Mg Tablet) 2 mg PO TID [facility] Stop: 09/15/21 14:59 Haloperidol Decanoate (Haloperidol Decanoate 50 Mg/Ml Ampul) 100 mg IM Q28D [facility] Hydroxyzine HCl (Hydroxyzine Hcl 50 Mg Tablet) 50 mg PO BID PRN PRN Reason: anxiety Last Admin: 09/11/21 19:58 Dose: 50 mg Documented by: Lactated Ringer's (Lr) 1,000 mls @ 50 mls/hr IVCONT .Q20H [facility] Last Admin: 09/12/21 08:56 Dose: Not Given Documented by: Lactic Acid (Ammonium Lactate 12 % Cream 140 Gm Tube) 1 appl TOPICAL BID PRN; Protocol PRN Reason: Dry Skin Last Admin: 09/11/21 19:55 Dose: 1 appl Documented by: [place] Carbonate ([place] Carbonate 300 Mg Capsule) 600 mg PO BEDTIME [facility] Last Admin: 09/11/21 19:57 Dose: Not Given Documented by: Loratadine (Loratadine 10 Mg Tablet) 10 mg PO DAILY [facility] Last Admin: 09/12/21 09:00 Dose: 10 mg Documented by: Lorazepam (Lorazepam 1 Mg Tablet) 1 mg PO Q4H PRN PRN Reason: agitation Last Admin: 09/12/21 12:15 Dose: 1 mg Documented by: Magnesium Hydroxide (Milk Of Magnesia 30 Ml Oral.Susp) 30 ml PO DAILY PRN PRN Reason: Constipation Nicotine Polacrilex (Nicotine Polacrilex 2 Mg Gum) 2 mg BUCCAL Q2H PRN PRN Reason: nicotine cravings Omeprazole (Omeprazole 20 Mg Capsule.Dr) 20 mg PO DAILY [facility] Last Admin: 09/12/21 09:00 Dose: 20 mg Documented by: Prazosin HCl (Prazosin Hcl 1 Mg Capsule) 8 mg PO BEDTIME [facility]; Protocol Senna (Sennosides 8.6 Mg Tablet) 17.2 mg PO BEDTIME [facility] Last Admin: 09/11/21 19:53 Dose: Not Given Documented by: Silver Sulfadiazine (Silver Sulfadiazine 1 % Cream 20 Gm Tube) 1 appl TOPICAL BID [facility] Last Admin: 09/12/21 10:18 Dose: Not Given Documented by: Sumatriptan Succinate (Sumatriptan Succinate 50 Mg Tablet) 50 mg PO DAILY PRN PRN Reason: Migraine Headache Last Admin: 09/11/21 08:45 Dose: 50 mg Documented by: Topiramate (Topiramate 25 Mg Tablet) 25 mg PO BID [facility] Last Admin: 09/12/21 09:00 Dose: 25 mg Documented by: Valacyclovir HCl (Valacycyclovir Hcl 500 Mg Tablet) 500 mg PO DAILY [facility] Last Admin: 09/12/21 09:00 Dose: 500 mg Documented by: Allergies Allergies Allergy/AdvReac Type Severity Reaction Status Date / Time carbamazepine [From AdvReac Unknown NAUSEA & Verified 06/01/21 20:14 TEGRETOL] VOMITING Assessment & Plan Assessment & Plan (1) Suicidal ideation: Status: Acute Code(s): R45.851 - Suicidal ideations Assessment and Plan: chronic, at baseline (2) Chronic post-traumatic stress disorder (PTSD): Status: Chronic Code(s): F43.12 - Post-traumatic stress disorder, chronic Assessment and Plan: vraylar DCed, prazosin being titrated up. (3) Lacerations of multiple sites of right arm: Status: Acute Code(s): S41.111A - Laceration without foreign body of right upper arm, initial encounter Assessment and Plan: healing well (4) Borderline personality disorder: Status: Chronic Code(s): F60.3 - Borderline personality disorder Assessment and Plan: short stay if possible. Plan 1:1 for safety. continue most home medications; T/C medication holiday per conversation with avni aguero prescriber.. next haldol decanoate shot due 09/16. haldol 5 and ativan 1 PRNs for agitation. ECT begun friday 09/08 - next NPO after 7 pm on wednesday. Vanna [facility]domo [facility] amenable to DC vraylar, supports medication holiday. vraylar taper completed as of 09/12. prazosin being titrated, increased to 8 mg QHS as of 09/12. haldol 5 TID decreased to 2 TID for 3 days, then will DC entirely. I spent minutes with the patient and/or on the patient floor today, greater than?50% of which was spent counseling/coordinating care. Reason for contiued inpatient stay Substantial Risk for: harm to self, inability to function and rapid decompensation
--- NOTE | 2021-09-12 13:48 | PM.EVENT ---
Event Note Date of Service: 09/12/21 Event Note: Asked to evaluate patient for: c/o yeast infection Sx, c/o R ear pain appears red Patient seen and examined. She reports itching in the region but denies dysuria or cottage cheese type of discharge. She reports R ear pain without any hearing disturbances. Exam B/l Ears -- tympanic membranes clear without signs of effusion / erythema; +light reflex b/l No evidence based off ear exam of acute otitis media. In regards to her symptoms, no discharge reported to suggest yeast infection. Check UA (ordered) and if positive, treat with antibiotics. If persistent symptoms despite negative UA, can give 1 dose of fluconazole 150mg.
[2021-09-12] MEDS: HaloperidoL 1 MG TABLET 2 MG PO ×2 (14:58→21:27)
[2021-09-12 18:45] LABS: Appearance Urine HAZY; Color Urine YELLOW; Glucose Urine UA NEG (NEG); Leukocyte Esterase Urine NEG (NEG); Nitrite Urine NEG (NEG); PH 5.5 (5.0-8.0); Specific Gravity - Urine >= 1.030 (1.005-1.025); Urine Blood NEG (NEG); Urine Ketones NEG (NEG); Urine Protein NEG (NEG-TRACE)
[2021-09-12] MEDS: Lithium Carbonate 300 MG CAPSULE 600 MG PO (21:27)
[2021-09-12] MEDS: Prazosin HCL 1 MG CAPSULE 8 MG PO (21:27)
[2021-09-12] MEDS: Sennosides 8.6 MG TABLET 17.2 MG PO (21:27)
[2021-09-12] MEDS: Silver Sulfadiazine 1 % Cream 20 GM TUBE 1 APPL TOPICAL (21:31)
[2021-09-12] MEDS: hydrOXYzine HCL 50 MG TABLET PO (21:45)
[2021-09-12] MEDS: Ammonium Lactate 12 % Cream 140 GM TUBE 1 APPL TOPICAL (21:46)
[2021-09-13] MEDS: LORazepam 1 MG TABLET PO ×2 (06:59→21:50)
[2021-09-13] MEDS: Omeprazole 20 MG CAPSULE.DR PO (08:24)
[2021-09-13] MEDS: HaloperidoL 1 MG TABLET 2 MG PO ×3 (08:24→21:50)
[2021-09-13] MEDS: DULoxetine HCl 60 MG CAPSULE.DR PO (08:24)
[2021-09-13] MEDS: Topiramate 25 MG TABLET PO ×2 (08:24→21:50)
[2021-09-13] MEDS: Loratadine 10 MG TABLET PO (08:24)
[2021-09-13] MEDS: Fluticasone/Vilanterol 100/25 BLST.W.DEV 1 PUFF INHALE (08:25)
[2021-09-13 09:00] VITALS: BP 150/87; PULSE 113; RESP 18; TEMP 36.9; O2SAT 98
--- NOTE | 2021-09-13 12:19 | HO.PSYCHPN ---
Subjective Subjective Date of Service: 09/13/21 Reason For Visit: SI Subjective Notes: Conditional Voluntary Interim History: the nursing staff reported that the patient had nightmares and flashbacks last night, very anxious and restless AM. No evidence of head banging or unsafe behaviors. On interview, she reported her nightmares, unclear trigger. We discussed options and she agreed to increase her Prazosin to 10 mg. Mental Status Exam Mental Status Exam Patient Appearance: Appropriate Patient Orientation: Person and Situation Level of Consciousness: Awake Patient Behavior: Cooperative Mood Description: Depressed Affect Description: Constricted Ability to Follow Directions: Good Speech Pattern: Appropriate Hallucinations: None Delusions: Not Present Thought Process: Linear Thought Content: positive for Circumstantial Judgement: Fair Diagnostics Vital Signs (24Hr): Vital Signs - 24 hr 09/12/21 21:25 09/13/21 09:00 Temperature 97.6 F 98.4 F Pulse Rate 90 113 H Respiratory Rate 18 Blood Pressure 130/78 150/87 H Pulse Oximetry 98 98 BMI result Body Mass Index 50.1 Labs Results: 09/02/21 18:38 09/02/21 18:38 Labs: Laboratory Results - last 48 hr 09/12/21 18:37 Urine Color YELLOW Urine Appearance HAZY Urine pH 5.5 Ur Specific [place] >= 1.030 H Urine Protein NEG Urine Glucose (UA) NEG Urine Ketones NEG Urine Blood NEG Urine Nitrite NEG Ur Leukocyte Esterase NEG Medications Medications Current Medications Acetaminophen (Acetaminophen 325 Mg Tablet) 650 mg PO Q6H PRN PRN Reason: Pain (Scale Score 1-3) Last Admin: 09/12/21 21:44 Dose: 650 mg Documented by: Al Hydroxide/Mg Hydroxide (Magnesium Hydrox/Alum Hydrox 30 Ml Oral.Susp) 30 ml PO Q6H PRN PRN Reason: Heartburn/Nausea Albuterol Sulfate (Albuterol Sulfate 90 Mcg 8 Gm Inhaler) 2 puff INHALE Q4H PRN PRN Reason: Wheezing Last Admin: 09/05/21 22:02 Dose: 2 puff Documented by: Heparin Sodium (Porcine) 50 (units/ Sodium Chloride 5 ml) 0 units IVFLUSH DAILY [facility] Last Admin: 09/13/21 12:09 Dose: Not Given Documented by: Docusate Sodium (Docusate Sodium 100 Mg Capsule) 100 mg PO BEDTIME PRN PRN Reason: Constipation Duloxetine HCl (Duloxetine Hcl 60 Mg Capsule.) 60 mg PO DAILY [facility] Last Admin: 09/13/21 08:24 Dose: 60 mg Documented by: Fluticasone/Vilanterol (Fluticasone/Vilanterol 100/25 Blst.W.Dev) 1 puff INHALE RDAILY [facility] Last Admin: 09/13/21 08:25 Dose: 1 puff Documented by: Haloperidol (Haloperidol 5 Mg Tablet) 5 mg PO Q4H PRN PRN Reason: Agitation Last Admin: 09/12/21 12:15 Dose: 5 mg Documented by: Haloperidol (Haloperidol 1 Mg Tablet) 2 mg PO TID [facility] Stop: 09/15/21 14:59 Last Admin: 09/13/21 08:24 Dose: 2 mg Documented by: Haloperidol Decanoate (Haloperidol Decanoate 50 Mg/Ml Ampul) 100 mg IM Q28D [facility] Hydroxyzine HCl (Hydroxyzine Hcl 50 Mg Tablet) 50 mg PO BID PRN PRN Reason: anxiety Last Admin: 09/12/21 21:45 Dose: 50 mg Documented by: Lactated Ringer's (Lr) 1,000 mls @ 50 mls/hr IVCONT .Q20H [facility] Last Admin: 09/13/21 05:34 Dose: Not Given Documented by: Lactic Acid (Ammonium Lactate 12 % Cream 140 Gm Tube) 1 appl TOPICAL BID PRN; Protocol PRN Reason: Dry Skin Last Admin: 09/12/21 21:46 Dose: 1 appl Documented by: [place] Carbonate ([place] Carbonate 300 Mg Capsule) 600 mg PO BEDTIME [facility] Last Admin: 09/12/21 21:27 Dose: 600 mg Documented by: Loratadine (Loratadine 10 Mg Tablet) 10 mg PO DAILY [facility] Last Admin: 09/13/21 08:24 Dose: 10 mg Documented by: Lorazepam (Lorazepam 1 Mg Tablet) 1 mg PO Q4H PRN PRN Reason: agitation Last Admin: 09/13/21 06:59 Dose: 1 mg Documented by: Magnesium Hydroxide (Milk Of Magnesia 30 Ml Oral.Susp) 30 ml PO DAILY PRN PRN Reason: Constipation Nicotine Polacrilex (Nicotine Polacrilex 2 Mg Gum) 2 mg BUCCAL Q2H PRN PRN Reason: nicotine cravings Omeprazole (Omeprazole 20 Mg Capsule.) 20 mg PO DAILY [facility] Last Admin: 09/13/21 08:24 Dose: 20 mg Documented by: Prazosin HCl (Prazosin Hcl 1 Mg Capsule) 8 mg PO BEDTIME [facility]; Protocol Last Admin: 09/12/21 21:27 Dose: 8 mg Documented by: Senna (Sennosides 8.6 Mg Tablet) 17.2 mg PO BEDTIME [facility] Last Admin: 09/12/21 21:27 Dose: 17.2 mg Documented by: Silver Sulfadiazine (Silver Sulfadiazine 1 % Cream 20 Gm Tube) 1 appl TOPICAL BID [facility] Last Admin: 09/13/21 08:27 Dose: Not Given Documented by: Sumatriptan Succinate (Sumatriptan Succinate 50 Mg Tablet) 50 mg PO DAILY PRN PRN Reason: Migraine Headache Last Admin: 09/11/21 08:45 Dose: 50 mg Documented by: Topiramate (Topiramate 25 Mg Tablet) 25 mg PO BID [facility] Last Admin: 09/13/21 08:24 Dose: 25 mg Documented by: Valacyclovir HCl (Valacycyclovir Hcl 500 Mg Tablet) 500 mg PO DAILY [facility] Last Admin: 09/13/21 08:24 Dose: 500 mg Documented by: Allergies Allergies Allergy/AdvReac Type Severity Reaction Status Date / Time carbamazepine [From TEGRETOL] AdvReac Unknown NAUSEA & Verified 06/01/21 20:14 VOMITING Assessment & Plan Assessment & Plan (1) Suicidal ideation: Status: Acute Code(s): R45.851 - Suicidal ideations Assessment and Plan: chronic, at baseline (2) Chronic post-traumatic stress disorder (PTSD): Status: Chronic Code(s): F43.12 - Post-traumatic stress disorder, chronic Assessment and Plan: everette Spangler, prazosin being titrated up. (3) Lacerations of multiple sites of right arm: Status: Acute Code(s): S41.111A - Laceration without foreign body of right upper arm, initial encounter Assessment and Plan: healing well (4) Borderline personality disorder: Status: Chronic Code(s): F60.3 - Borderline personality disorder Assessment and Plan: short stay if possible. Plan 1:1 for safety. continue most home medications; T/C medication holiday per conversation with avni aguero prescriber.. next haldol decanoate shot due 09/16. haldol 5 and ativan 1 PRNs for agitation. ECT begun friday 09/08 - next NPO after 7 pm on wednesday. Vanna of N amenable to DC vraylar, supports medication holiday. vraylar taper completed as of 09/12. prazosin being titrated, increased to 10 mg QHS as of 09/13. haldol 5 TID decreased to 2 TID for 3 days, then will DC entirely. I spent minutes with the patient and/or on the patient floor today, greater than?50% of which was spent counseling/coordinating care. Reason for contiued inpatient stay Substantial Risk for: inability to function, rapid decompensation and med/psych decompensation
--- NOTE | 2021-09-13 14:34 | HO.POSTANES ---
Post Anesthesia Evaluation Post Anesthesia Evaluation Vital Signs: Vital Signs Temp Pulse Resp BP Pulse Ox 09/13/21 09:00 98.4 F 113 H 18 150/87 H 98 Anesthesia: General Mental Status: Awake Pain Control: Satisfactory Nausea/Vomiting: None Hydration: Adequate Anesthesia-Related Issues: No Anes. Related Issues
[2021-09-13 21:48] VITALS: BP 134/91; PULSE 103; TEMP 36; O2SAT 97
[2021-09-13] MEDS: hydrOXYzine HCL 50 MG TABLET PO (21:50)
[2021-09-13] MEDS: Prazosin HCL 5 MG CAPSULE 10 MG PO (21:50)
[2021-09-13] MEDS: Lithium Carbonate 300 MG CAPSULE 600 MG PO (21:50)
[2021-09-13] MEDS: Sennosides 8.6 MG TABLET 17.2 MG PO (21:51)
[2021-09-13] MEDS: Silver Sulfadiazine 1 % Cream 20 GM TUBE 1 APPL TOPICAL (21:51)
[2021-09-13] MEDS: Ammonium Lactate 12 % Cream 140 GM TUBE 1 APPL TOPICAL (21:59)
[2021-09-13] MEDS: HaloperidoL 5 MG TABLET PO (23:14)
[2021-09-14] MEDS: Loratadine 10 MG TABLET PO (09:13)
[2021-09-14] MEDS: Omeprazole 20 MG CAPSULE.DR PO (09:13)
[2021-09-14] MEDS: DULoxetine HCl 60 MG CAPSULE.DR PO (09:13)
[2021-09-14] MEDS: Topiramate 25 MG TABLET PO (09:13)
[2021-09-14] MEDS: HaloperidoL 1 MG TABLET 2 MG PO ×3 (09:13→21:22)
[2021-09-14] MEDS: Fluticasone/Vilanterol 100/25 BLST.W.DEV 1 PUFF INHALE (09:20)
[2021-09-14 09:23] VITALS: BP 147/96; PULSE 127; RESP 16; TEMP 36.8; O2SAT 98
[2021-09-14] MEDS: HaloperidoL 5 MG TABLET PO ×2 (11:30→18:22)
[2021-09-14] MEDS: LORazepam 1 MG TABLET PO (11:30)
--- NOTE | 2021-09-14 13:35 | HO.PSYCHPN ---
Subjective Subjective Date of Service: 09/14/21 Reason For Visit: SI Interim History: The nursing staff reported that the patient complained of AH, she had flashbacks but her nightmares were slightly less since Prazosin is on 10 mg. No self harming behavior. On interview, she was pleasant, very anxious but able to contract for safety. Mental Status Exam Mental Status Exam Patient Appearance: Well Grooomed Patient Orientation: Person, Place and Situation Level of Consciousness: Awake Patient Behavior: Appropriate and Cooperative Mood Description: Sad, Nervous and Apprehensive Affect Description: Constricted Patient Cognition Impaired: No Ability to Follow Directions: Good Speech Pattern: Clear Hallucinations: Auditory Thought Process: Linear Thought Content: positive for Circumstantial Judgement: Fair Diagnostics Vital Signs (24Hr): Vital Signs - 24 hr 09/13/21 21:48 09/14/21 09:23 Temperature 96.8 F 98.3 F Pulse Rate 103 H 127 H Respiratory Rate 16 Blood Pressure 134/91 H 147/96 H Pulse Oximetry 97 98 BMI result Body Mass Index 50.1 Labs Results: 09/02/21 18:38 09/02/21 18:38 Labs: Laboratory Results - last 48 hr 09/12/21 18:37 Urine Color YELLOW Urine Appearance HAZY Urine pH 5.5 Ur Specific [place] >= 1.030 H Urine Protein NEG Urine Glucose (UA) NEG Urine Ketones NEG Urine Blood NEG Urine Nitrite NEG Ur Leukocyte Esterase NEG Medications Medications Current Medications Acetaminophen (Acetaminophen 325 Mg Tablet) 650 mg PO Q6H PRN PRN Reason: Pain (Scale Score 1-3) Last Admin: 09/12/21 21:44 Dose: 650 mg Documented by: Al Hydroxide/Mg Hydroxide (Magnesium Hydrox/Alum Hydrox 30 Ml Oral.Susp) 30 ml PO Q6H PRN PRN Reason: Heartburn/Nausea Albuterol Sulfate (Albuterol Sulfate 90 Mcg 8 Gm Inhaler) 2 puff INHALE Q4H PRN PRN Reason: Wheezing Last Admin: 09/05/21 22:02 Dose: 2 puff Documented by: Heparin Sodium (Porcine) 50 (units/ Sodium Chloride 5 ml) 0 units IVFLUSH DAILY [facility] Last Admin: 09/14/21 09:22 Dose: Not Given Documented by: Docusate Sodium (Docusate Sodium 100 Mg Capsule) 100 mg PO BEDTIME PRN PRN Reason: Constipation Duloxetine HCl (Duloxetine Hcl 60 Mg Capsule.) 60 mg PO DAILY [facility] Last Admin: 09/14/21 09:13 Dose: 60 mg Documented by: Fluticasone/Vilanterol (Fluticasone/Vilanterol 100/25 Blst.W.Dev) 1 puff INHALE RDAILY [facility] Last Admin: 09/14/21 09:20 Dose: 1 puff Documented by: Haloperidol (Haloperidol 5 Mg Tablet) 5 mg PO Q4H PRN PRN Reason: Agitation Last Admin: 09/14/21 11:30 Dose: 5 mg Documented by: Haloperidol (Haloperidol 1 Mg Tablet) 2 mg PO TID [facility] Stop: 09/15/21 14:59 Last Admin: 09/14/21 09:13 Dose: 2 mg Documented by: Haloperidol Decanoate (Haloperidol Decanoate 50 Mg/Ml Ampul) 100 mg IM Q28D [facility] Hydroxyzine HCl (Hydroxyzine Hcl 50 Mg Tablet) 50 mg PO BID PRN PRN Reason: anxiety Last Admin: 09/13/21 21:50 Dose: 50 mg Documented by: Lactated Ringer's (Lr) 1,000 mls @ 50 mls/hr IVCONT .Q20H [facility] Last Admin: 09/14/21 01:49 Dose: Not Given Documented by: Lactic Acid (Ammonium Lactate 12 % Cream 140 Gm Tube) 1 appl TOPICAL BID PRN; Protocol PRN Reason: Dry Skin Last Admin: 09/13/21 21:59 Dose: 1 appl Documented by: [place] Carbonate ([place] Carbonate 300 Mg Capsule) 600 mg PO BEDTIME [facility] Last Admin: 09/13/21 21:50 Dose: 600 mg Documented by: Loratadine (Loratadine 10 Mg Tablet) 10 mg PO DAILY [facility] Last Admin: 09/14/21 09:13 Dose: 10 mg Documented by: Lorazepam (Lorazepam 1 Mg Tablet) 1 mg PO Q4H PRN PRN Reason: agitation Last Admin: 09/14/21 11:30 Dose: 1 mg Documented by: Magnesium Hydroxide (Milk Of Magnesia 30 Ml Oral.Susp) 30 ml PO DAILY PRN PRN Reason: Constipation Nicotine Polacrilex (Nicotine Polacrilex 2 Mg Gum) 2 mg BUCCAL Q2H PRN PRN Reason: nicotine cravings Omeprazole (Omeprazole 20 Mg Capsule.) 20 mg PO DAILY [facility] Last Admin: 09/14/21 09:13 Dose: 20 mg Documented by: Prazosin HCl (Prazosin Hcl 5 Mg Capsule) 10 mg PO BEDTIME [facility]; Protocol Last Admin: 09/13/21 21:50 Dose: 10 mg Documented by: Senna (Sennosides 8.6 Mg Tablet) 17.2 mg PO BEDTIME [facility] Last Admin: 09/13/21 21:51 Dose: 17.2 mg Documented by: Silver Sulfadiazine (Silver Sulfadiazine 1 % Cream 20 Gm Tube) 1 appl TOPICAL BID [facility] Last Admin: 09/14/21 09:51 Dose: Not Given Documented by: Sumatriptan Succinate (Sumatriptan Succinate 50 Mg Tablet) 50 mg PO DAILY PRN PRN Reason: Migraine Headache Last Admin: 09/11/21 08:45 Dose: 50 mg Documented by: Topiramate (Topiramate 25 Mg Tablet) 25 mg PO BID [facility] Last Admin: 09/14/21 09:13 Dose: 25 mg Documented by: Valacyclovir HCl (Valacycyclovir Hcl 500 Mg Tablet) 500 mg PO DAILY [facility] Last Admin: 09/14/21 09:13 Dose: 500 mg Documented by: Allergies Allergies Allergy/AdvReac Type Severity Reaction Status Date / Time carbamazepine [From TEGRETOL] AdvReac Unknown NAUSEA & Verified 06/01/21 20:14 VOMITING Assessment & Plan Assessment & Plan (1) Suicidal ideation: Status: Acute Code(s): R45.851 - Suicidal ideations Assessment and Plan: chronic, at baseline (2) Chronic post-traumatic stress disorder (PTSD): Status: Chronic Code(s): F43.12 - Post-traumatic stress disorder, chronic Assessment and Plan: everette Spangler, prazosin being titrated up. (3) Lacerations of multiple sites of right arm: Status: Acute Code(s): S41.111A - Laceration without foreign body of right upper arm, initial encounter Assessment and Plan: healing well (4) Borderline personality disorder: Status: Chronic Code(s): F60.3 - Borderline personality disorder Assessment and Plan: short stay if possible. Plan 1:1 for safety. continue most home medications; T/C medication holiday per conversation with avni aguero prescriber.. next haldol decanoate shot due 09/16. haldol 5 and ativan 1 PRNs for agitation. ECT begun friday 09/08 - next NPO after 7 pm on wednesday. Vanna of N amenable to DC vraylar, supports medication holiday. vraylar taper completed as of 09/12. prazosin being titrated, increased to 10 mg QHS as of 09/13. haldol 5 TID decreased to 2 TID for 3 days, then will DC entirely. I spent minutes with the patient and/or on the patient floor today, greater than?50% of which was spent counseling/coordinating care. Reason for contiued inpatient stay Substantial Risk for: inability to function, rapid decompensation and med/psych decompensation
[2021-09-14] MEDS: hydrOXYzine HCL 50 MG TABLET PO (21:22)
[2021-09-14] MEDS: Prazosin HCL 5 MG CAPSULE 10 MG PO (21:22)
[2021-09-14 21:26] VITALS: BP 131/92; PULSE 88; TEMP 35.9; O2SAT 98
[2021-09-15] VITALS (10 sets, daily range): BP systolic 117–141; BP diastolic 68–97; PULSE 91–115; RESP 18–22; TEMP 36.5–37.1; O2SAT 95–98; BMI 51.7
[2021-09-15] MEDS: hydrOXYzine HCL 50 MG TABLET PO (02:36)
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
--- NOTE | 2021-09-15 07:24 | HO.ECTPROC ---
ECT Procedure Note Diagnosis/Treatment Date of Service: 09/15/21 Diagnosis: Bipolar disorder and Other (PTSD) Previous ECT Date: 09/12/21 Interval Clinical Notes: The patient reports exacerbation of night terrors and nightmares, more dysphoric and anxious ECT Settings Device: THYMATRON DGx Electrode Placement: Bitemporal Program/Pulse Width: 0.50 Energy Percent: 100 Seizure Duration By EEG (in seconds): 0 (but seizure activity noted until 26 s) By Motor Observation (in seconds): 20 Medications Administration General Anesthetic: Etomidate (16) Muscle Relaxant: Succinylcholine (100) Ancillary Medications Analgesics: Torodol - Pre ECT Anti-emetics: Zofran - Pre ECT Airway Management Airway Management: Bag Mask Ventilation Treatment Recommendations No Changes Recommended: No change Pt Tolerated Procedure w/o Issue: Yes
--- NOTE | 2021-09-15 07:38 | HO.ANESPROP2 ---
[facility] Active Problems Active Problems: All Active Problems (Updated 09/04/21 @ 16:40 by Bubba Au MD) Pre-op evaluation (Acute) Suicidal ideation (Acute) Schizoaffective disorder, depressive type (Chronic) Hernia (Chronic) Chronic post-traumatic stress disorder (PTSD) (Chronic) Sprain of anterior cruciate ligament of right knee (Acute) Self-inflicted injury (Acute) Lacerations of multiple sites of right arm (Acute) Injury of ligament of right knee (Acute) Increased BMI (Acute) GERD (gastroesophageal reflux disease) (Acute) Borderline personality disorder (Chronic) Past Medical History Medical History Acute post-traumatic stress disorder Adjustment disorder Anxiety Asthma Borderline personality disorder Chronic post-traumatic stress disorder (PTSD) COPD (chronic obstructive pulmonary disease) Depression GERD (gastroesophageal reflux disease) Increased BMI Injury, self-inflicted Intentional self-harm PTSD (post-traumatic stress disorder) Recurrent major depression-severe Schizoaffective disorder Self-harming behavior Suicidal ideation Suicidal ideation Family History Family history of problems with anesthesia: No Surgical History History of Problems with Anesthesia: No Social History Social History Household Members: Other Household Members Other:: half-way Housing: Apartment Housing Other:: residential home Do you presently have visiting nurse or other home services: No Alcohol intake: unknown Patient Tobacco Use Status: Former Tobacco user Quit Date: 02-19-21 Tobacco use type: Cigarette Cigarette Packs Per Day: 1 Cigarettes Per Day: 20.0 Years Smoked: 17 e-Cigarette/Vaping Use: Never Used Second Hand Smoke Exposure: Yes Use of substances other than those prescribed or required for medical reasons: Yes Substance Use Type: Marijuana and Opiates Currently Displaying Signs/Symptoms of Drug Intoxication Withdrawal: No Spiritual Healthcare Practices: n/a Mandaen Healthcare Practices: n/a Cultural Healthcare Practices: n/a Are you DNR?: No Advance Directives: No Do you have thoughts of harming others: None Do you have a plan to hurt others: No Plan Recently lost weight without trying: No Nutrition Risks: No Nutritional Risk Patient : No : No Poor oral hygiene: No service: No Sexual orientation: Did not discuss Meds Allergies Allergy/AdvReac Type Severity Reaction Status Date / Time carbamazepine [From TEGRETOL] AdvReac Unknown NAUSEA & Verified 06/01/21 20:14 VOMITING Active Medications: Current Medications Acetaminophen (Acetaminophen 325 Mg Tablet) 650 mg PO Q6H PRN PRN Reason: Pain (Scale Score 1-3) Last Admin: 09/12/21 21:44 Dose: 650 mg Documented by: Al Hydroxide/Mg Hydroxide (Magnesium Hydrox/Alum Hydrox 30 Ml Oral.Susp) 30 ml PO Q6H PRN PRN Reason: Heartburn/Nausea Albuterol Sulfate (Albuterol Sulfate 90 Mcg 8 Gm Inhaler) 2 puff INHALE Q4H PRN PRN Reason: Wheezing Last Admin: 09/05/21 22:02 Dose: 2 puff Documented by: Heparin Sodium (Porcine) 50 (units/ Sodium Chloride 5 ml) 0 units IVFLUSH DAILY [facility] Last Admin: 09/14/21 09:22 Dose: Not Given Documented by: Docusate Sodium (Docusate Sodium 100 Mg Capsule) 100 mg PO BEDTIME PRN PRN Reason: Constipation Duloxetine HCl (Duloxetine Hcl 60 Mg Capsule.Dr) 60 mg PO DAILY [facility] Last Admin: 09/14/21 09:13 Dose: 60 mg Documented by: Fluticasone/Vilanterol (Fluticasone/Vilanterol 100/25 Blst.W.Dev) 1 puff INHALE RDAILY [facility] Last Admin: 09/14/21 09:20 Dose: 1 puff Documented by: Haloperidol (Haloperidol 5 Mg Tablet) 5 mg PO Q4H PRN PRN Reason: Agitation Last Admin: 09/14/21 11:30 Dose: 5 mg Documented by: Haloperidol (Haloperidol 1 Mg Tablet) 2 mg PO TID [facility] Stop: 09/15/21 14:59 Last Admin: 09/14/21 21:22 Dose: 2 mg Documented by: Haloperidol Decanoate (Haloperidol Decanoate 50 Mg/Ml Ampul) 100 mg IM Q28D [facility] Hydroxyzine HCl (Hydroxyzine Hcl 50 Mg Tablet) 50 mg PO BID PRN PRN Reason: anxiety Last Admin: 09/15/21 02:36 Dose: 50 mg Documented by: Lactic Acid (Ammonium Lactate 12 % Cream 140 Gm Tube) 1 appl TOPICAL BID PRN; Protocol PRN Reason: Dry Skin Last Admin: 09/13/21 21:59 Dose: 1 appl Documented by: Severy Carbonate (Severy Carbonate 300 Mg Capsule) 600 mg PO BEDTIME [facility] Last Admin: 09/14/21 21:25 Dose: Not Given Documented by: Loratadine (Loratadine 10 Mg Tablet) 10 mg PO DAILY [facility] Last Admin: 09/14/21 09:13 Dose: 10 mg Documented by: Lorazepam (Lorazepam 1 Mg Tablet) 1 mg PO Q4H PRN PRN Reason: agitation Last Admin: 09/14/21 11:30 Dose: 1 mg Documented by: Magnesium Hydroxide (Milk Of Magnesia 30 Ml Oral.Susp) 30 ml PO DAILY PRN PRN Reason: Constipation Nicotine Polacrilex (Nicotine Polacrilex 2 Mg Gum) 2 mg BUCCAL Q2H PRN PRN Reason: nicotine cravings Omeprazole (Omeprazole 20 Mg Capsule.Dr) 20 mg PO DAILY [facility] Last Admin: 09/14/21 09:13 Dose: 20 mg Documented by: Prazosin HCl (Prazosin Hcl 5 Mg Capsule) 10 mg PO BEDTIME [facility]; Protocol Last Admin: 09/14/21 21:22 Dose: 10 mg Documented by: Senna (Sennosides 8.6 Mg Tablet) 17.2 mg PO BEDTIME [facility] Last Admin: 09/14/21 21:25 Dose: Not Given Documented by: Silver Sulfadiazine (Silver Sulfadiazine 1 % Cream 20 Gm Tube) 1 appl TOPICAL BID [facility] Last Admin: 09/14/21 23:18 Dose: Not Given Documented by: Sumatriptan Succinate (Sumatriptan Succinate 50 Mg Tablet) 50 mg PO DAILY PRN PRN Reason: Migraine Headache Last Admin: 09/11/21 08:45 Dose: 50 mg Documented by: Topiramate (Topiramate 25 Mg Tablet) 25 mg PO BID [facility] Last Admin: 09/14/21 21:25 Dose: Not Given Documented by: Valacyclovir HCl (Valacycyclovir Hcl 500 Mg Tablet) 500 mg PO DAILY [facility] Last Admin: 09/14/21 09:13 Dose: 500 mg Documented by: Home Medications Medication Instructions Recorded Confirmed Last Taken Type omeprazole 20 mg capsule,delayed 20 mg PO DAILY 11/29/20 09/01/21 08/02/21 07:00 History release cetirizine 10 mg tablet 10 mg PO DAILY 12/24/20 09/01/21 08/02/21 08:00 History haloperidol decanoate 100 mg/mL 100 mg IM Q4W 03/30/21 09/01/21 08/16/21 History intramuscular solution (Haldol Decanoate) lorazepam 1 mg tablet 1 mg PO TID PRN 03/30/21 09/01/21 08/01/21 20:00 History prazosin 2 mg capsule 5 mg PO BEDTIME 03/30/21 09/01/21 08/01/21 20:00 History cariprazine 3 mg capsule (Vraylar) 6 mg PO DAILY 07/18/21 09/01/21 08/02/21 08:00 History fluticasone 250 mcg-salmeterol 50 1 puff INHALATION BID 08/02/21 09/01/21 08/02/21 08:00 History mcg/dose blistr powdr for inhalation (Advair Diskus) topiramate 25 mg tablet 1 tab PO BID 08/02/21 09/01/21 08/02/21 07:00 History duloxetine 60 mg capsule,delayed 1 cap PO QAM 08/03/21 09/01/21 08/02/21 08:00 History release lithium carbonate 300 mg tablet 2 tab PO BEDTIME 08/30/21 09/01/21 Unknown History acetaminophen 500 mg tablet 500 mg PO Q6H PRN 09/01/21 09/01/21 Unknown History albuterol sulfate 2.5 mg INHALATION Q4H PRN 09/01/21 09/01/21 Unknown History albuterol sulfate 90 mcg/actuation 2 inh INHALATION Q4H PRN 09/01/21 09/01/21 Unknown History breath activated powder inhaler (ProAir RespiClick) haloperidol 5 mg tablet 1 tab PO BID PRN 09/01/21 09/01/21 Unknown History hydroxyzine pamoate 50 mg capsule 1 cap PO BID PRN 09/01/21 09/01/21 Unknown History ibuprofen 600 mg tablet 600 mg PO Q8H PRN 09/01/21 09/01/21 Unknown History sumatriptan succinate 50 mg tablet 50 mg PO DAILY PRN 09/01/21 09/01/21 Unknown History trazodone 50 mg tablet 100 mg PO BEDTIME PRN 09/01/21 09/01/21 Unknown History Exam Exam Date and Time: September 15, 2021 0738 Height,Weight and Vital Signs: Height 4 ft 11 in Weight 116.12 kg Last Vital Signs Temp 98.6 F 09/15/21 07:33 Pulse 91 09/15/21 07:33 Resp 18 09/15/21 07:33 BP 139/84 09/15/21 07:33 Pulse Ox 95 09/15/21 07:33 Pertinent Lab Results Pertinent Lab Results: Laboratory Tests 09/01/21 09/01/21 09/01/21 20:13 20:36 20:36 WBC RBC Hgb Hct MCV MCH MCHC RDW Plt Count MPV Immature Gran % (Auto) Neut % (Auto) Lymph % (Auto) [place] % (Auto) Eos % (Auto) Baso % (Auto) Lymph # (Auto) [place] # (Auto) Eos # (Auto) Baso # (Auto) Abs Immat Gran (auto) Absolute Neuts (auto) Absolute Nucleated RBC Nucleated RBC % (auto) Sodium Potassium Chloride Carbon Dioxide Anion Gap BUN Creatinine Estim Creat Clear Calc Estimated GFR Random Glucose Calcium Total Bilirubin AST ALT Alkaline Phosphatase Total Protein Albumin Urine Color Urine Appearance Urine pH Ur Specific [place] Urine Protein Urine Glucose (UA) Urine Ketones Urine Blood Urine Nitrite Ur Leukocyte Esterase Urine Test NEGATIVE Urine Opiates Screen Not Detected Urine Fentanyl Screen POSITIVE H Ur Barbiturates Screen Not Detected Ur Phencyclidine Scrn Not Detected Ur Amphetamines Screen Not Detected U Benzodiazepines Scrn Not Detected Urine Cocaine Screen Not Detected U Marijuana (THC) Screen POSITIVE H COVID-19 (RAFAL) Negative COVID-19 Clin Com See Note 09/02/21 09/02/21 09/02/21 18:38 18:38 18:38 WBC 7.4 RBC 4.32 Hgb 11.4 L Hct 36.3 L MCV 84.0 MCH 26.4 L MCHC 31.4 RDW 16.3 H Plt Count 320 MPV 11.6 Immature Gran % (Auto) 0.1 Neut % (Auto) 60.7 Lymph % (Auto) 32.9 [place] % (Auto) 5.3 Eos % (Auto) 0.7 Baso % (Auto) 0.3 Lymph # (Auto) 2.4 [place] # (Auto) 0.4 Eos # (Auto) 0.1 Baso # (Auto) 0.0 Abs Immat Gran (auto) 0.01 Absolute Neuts (auto) 4.5 Absolute Nucleated RBC 0.000 Nucleated RBC % (auto) 0.0 Sodium 140 Potassium 4.2 Chloride 114 H Carbon Dioxide 20 L Anion Gap 10 L BUN 9 Creatinine 0.77 Estim Creat Clear Calc 107.4 Estimated GFR > 60 Random Glucose 110 Calcium 9.0 Total Bilirubin 0.2 AST 15 ALT 10 Alkaline Phosphatase 62 Total Protein 6.2 L Albumin 3.6 Urine Color Urine Appearance Urine pH Ur Specific [place] Urine Protein Urine Glucose (UA) Urine Ketones Urine Blood Urine Nitrite Ur Leukocyte Esterase Urine Test Urine Opiates Screen Urine Fentanyl Screen Ur Barbiturates Screen Ur Phencyclidine Scrn Ur Amphetamines Screen U Benzodiazepines Scrn Urine Cocaine Screen U Marijuana (THC) Screen COVID-19 (RAFAL) Negative COVID-19 Clin Com See Note 09/12/21 18:37 WBC RBC Hgb Hct MCV MCH MCHC RDW Plt Count MPV Immature Gran % (Auto) Neut % (Auto) Lymph % (Auto) [place] % (Auto) Eos % (Auto) Baso % (Auto) Lymph # (Auto) [place] # (Auto) Eos # (Auto) Baso # (Auto) Abs Immat Gran (auto) Absolute Neuts (auto) Absolute Nucleated RBC Nucleated RBC % (auto) Sodium Potassium Chloride Carbon Dioxide Anion Gap BUN Creatinine Estim Creat Clear Calc Estimated GFR Random Glucose Calcium Total Bilirubin AST ALT Alkaline Phosphatase Total Protein Albumin Urine Color YELLOW Urine Appearance HAZY Urine pH 5.5 Ur Specific [place] >= 1.030 H Urine Protein NEG Urine Glucose (UA) NEG Urine Ketones NEG Urine Blood NEG Urine Nitrite NEG Ur Leukocyte Esterase NEG Urine Test Urine Opiates Screen Urine Fentanyl Screen Ur Barbiturates Screen Ur Phencyclidine Scrn Ur Amphetamines Screen U Benzodiazepines Scrn Urine Cocaine Screen U Marijuana (THC) Screen COVID-19 (RAFAL) COVID-19 Clin Com Airway Mallampati Class: III TM Dist: >3cm Neck ROM: Full Heart: RRR Lungs: CTA Assessment and Plan Assessment Anesthesia Assessment: Anesthesia Plan Discussed and Chart Reviewed Final Anesthetic Review Family History of Problems with Anesthesia: No History of Problems with Anesthesia: No NPO: Yes ASA Class: III Final Preanesthetic Review: Meds/Allgs Chart Reviewed, Consent Obtained/Reviewed and Anes Risks/Benef Reviewed Patient Risk: Intermediate Procedure Risk: Intermediate Anesthetic Plan Anesthetic Plan: GA Disposition: Standard PACU
[2021-09-15] MEDS: Fluticasone/Vilanterol 100/25 BLST.W.DEV 1 PUFF INHALE (09:44)
[2021-09-15] MEDS: Loratadine 10 MG TABLET PO (09:45)
[2021-09-15] MEDS: Topiramate 25 MG TABLET PO ×2 (09:45→21:49)
[2021-09-15] MEDS: DULoxetine HCl 60 MG CAPSULE.DR PO (09:45)
[2021-09-15] MEDS: Omeprazole 20 MG CAPSULE.DR PO (09:45)
[2021-09-15] MEDS: HaloperidoL 1 MG TABLET 2 MG PO (09:45)
--- NOTE | 2021-09-15 13:54 | P.PNPSI_ITS ---
Subjective Subjective Date of Service: 09/15/21 Reason For Visit: SI Interim History: pt seeking out MD felecai FRANCIS. she once again is reacting to the unstable environment and asking to return to her program, saying she misses her staff and friends there. agrees to increase prazosin to 12 mg at bedtime for nightmares and insomnia - states she has been having worsened night terrors recently. potential discharge later in the week discussed; informs pt he just wants her decision to be based on something stable. if she is safe and consistent in wanting to leave for the next several days, then maybe we can do that. agreeable to continue PO haldol taper. per staff, med-compliant. anx 05/25. worried about her nightmares, that they are so persistent. dep 04/25. CAH to harm self. disrupted sleep. Mental Status Exam Mental Status Exam Narrative: appropriately dressed and groomed, many scars from cutting across forearms, some lacerations in various stages of healing. no bandage on her forehead, vertical lac visible, closing. mild PMA of shaking present. hand tremor noted. cooperative with interview. speech incr in rate. nml tone, decr latency, incr loudness and amount. thoughts linear, logic strained. affect constricted, appropriate to context, hyper-intense, min-labile (tearful, agitated). Diagnostics Vital Signs (24Hr): Vital Signs - 24 hr 09/14/21 21:26 09/15/21 05:46 09/15/21 06:40 Temperature 96.7 F L 97.8 F 97.7 F Pulse Rate 88 114 H 114 H Respiratory Rate 18 18 Blood Pressure 131/92 H 134/68 141/97 H Pulse Oximetry 98 96 97 09/15/21 07:33 09/15/21 07:38 09/15/21 07:43 Temperature 98.6 F Pulse Rate 91 115 H 107 H Respiratory Rate 18 20 20 Blood Pressure 139/84 137/86 132/95 H Pulse Oximetry 95 98 98 09/15/21 07:48 09/15/21 08:03 09/15/21 08:18 Temperature 98.7 F 98.7 F Pulse Rate 115 H 107 H 105 H Respiratory Rate 22 H 18 19 Blood Pressure 133/85 117/70 130/78 Pulse Oximetry 97 97 09/15/21 09:30 Temperature Pulse Rate Respiratory Rate Blood Pressure Pulse Oximetry 98 BMI result [place] 4 Body Mass Index [place] 4 51.7 [place] 4 [place] 4 Labs Results: 09/02/21 18:38 09/02/21 18:38 Medications Medications Current Medications Acetaminophen (Acetaminophen 325 Mg Tablet) 650 mg PO Q6H PRN PRN Reason: Pain (Scale Score 1-3) Last Admin: 09/12/21 21:44 Dose: 650 mg Documented by: Al Hydroxide/Mg Hydroxide (Magnesium Hydrox/Alum Hydrox 30 Ml Oral.Susp) 30 ml PO Q6H PRN PRN Reason: Heartburn/Nausea Albuterol Sulfate (Albuterol Sulfate 90 Mcg 8 Gm Inhaler) 2 puff INHALE Q4H PRN PRN Reason: Wheezing Last Admin: 09/05/21 22:02 Dose: 2 puff Documented by: Heparin Sodium (Porcine) 50 (units/ Sodium Chloride 5 ml) 0 units IVFLUSH DAILY [facility] Last Admin: 09/15/21 12:29 Dose: Not Given Documented by: Docusate Sodium (Docusate Sodium 100 Mg Capsule) 100 mg PO BEDTIME PRN PRN Reason: Constipation Duloxetine HCl (Duloxetine Hcl 60 Mg Capsule.Dr) 60 mg PO DAILY [facility] Last Admin: 09/15/21 09:45 Dose: 60 mg Documented by: Fluticasone/Vilanterol (Fluticasone/Vilanterol 100/25 Blst.W.Dev) 1 puff INHALE RDAILY [facility] Last Admin: 09/15/21 09:44 Dose: 1 puff Documented by: Haloperidol (Haloperidol 5 Mg Tablet) 5 mg PO Q4H PRN PRN Reason: Agitation Last Admin: 09/14/21 11:30 Dose: 5 mg Documented by: Haloperidol (Haloperidol 1 Mg Tablet) 2 mg PO TID [facility] Stop: 09/15/21 14:59 Last Admin: 09/15/21 09:45 Dose: 2 mg Documented by: Haloperidol Decanoate (Haloperidol Decanoate 50 Mg/Ml Ampul) 100 mg IM Q28D [facility] Hydroxyzine HCl (Hydroxyzine Hcl 50 Mg Tablet) 50 mg PO BID PRN PRN Reason: anxiety Last Admin: 09/15/21 02:36 Dose: 50 mg Documented by: Lactic Acid (Ammonium Lactate 12 % Cream 140 Gm Tube) 1 appl TOPICAL BID PRN; Protocol PRN Reason: Dry Skin Last Admin: 09/13/21 21:59 Dose: 1 appl Documented by: Rollins Carbonate (Rollins Carbonate 300 Mg Capsule) 600 mg PO BEDTIME [facility] Last Admin: 09/14/21 21:25 Dose: Not Given Documented by: Loratadine (Loratadine 10 Mg Tablet) 10 mg PO DAILY [facility] Last Admin: 09/15/21 09:45 Dose: 10 mg Documented by: Magnesium Hydroxide (Milk Of Magnesia 30 Ml Oral.Susp) 30 ml PO DAILY PRN PRN Reason: Constipation Nicotine Polacrilex (Nicotine Polacrilex 2 Mg Gum) 2 mg BUCCAL Q2H PRN PRN Reason: nicotine cravings Omeprazole (Omeprazole 20 Mg Capsule.Dr) 20 mg PO DAILY [facility] Last Admin: 09/15/21 09:45 Dose: 20 mg Documented by: Prazosin HCl (Prazosin Hcl 1 Mg Capsule) 12 mg PO BEDTIME [facility]; Protocol Senna (Sennosides 8.6 Mg Tablet) 17.2 mg PO BEDTIME [facility] Last Admin: 09/14/21 21:25 Dose: Not Given Documented by: Silver Sulfadiazine (Silver Sulfadiazine 1 % Cream 20 Gm Tube) 1 appl TOPICAL BID [facility] Last Admin: 09/15/21 12:29 Dose: Not Given Documented by: Sumatriptan Succinate (Sumatriptan Succinate 50 Mg Tablet) 50 mg PO DAILY PRN PRN Reason: Migraine Headache Last Admin: 09/11/21 08:45 Dose: 50 mg Documented by: Topiramate (Topiramate 25 Mg Tablet) 25 mg PO BID [facility] Last Admin: 09/15/21 09:45 Dose: 25 mg Documented by: Valacyclovir HCl (Valacycyclovir Hcl 500 Mg Tablet) 500 mg PO DAILY [facility] Last Admin: 09/15/21 09:45 Dose: 500 mg Documented by: Allergies Allergies Allergy/AdvReac Type Severity Reaction Status Date / Time carbamazepine [From AdvReac Unknown NAUSEA & Verified 06/01/21 20:14 TEGRETOL] VOMITING Assessment & Plan Assessment & Plan (1) Suicidal ideation: Status: Acute Code(s): R45.851 - Suicidal ideations Assessment and Plan: chronic, at baseline (2) Chronic post-traumatic stress disorder (PTSD): Status: Chronic Code(s): F43.12 - Post-traumatic stress disorder, chronic Assessment and Plan: vraylar DCed, prazosin being titrated up. (3) Lacerations of multiple sites of right arm: Status: Acute Code(s): S41.111A - Laceration without foreign body of right upper arm, initial encounter Assessment and Plan: healing well (4) Borderline personality disorder: Status: Chronic Code(s): F60.3 - Borderline personality disorder Assessment and Plan: short stay if possible. Plan 1:1 for safety. continue most home medications; T/C medication holiday per conversation with avni aguero prescriber.. next haldol decanoate shot due 09/16. haldol 5 and ativan 1 PRNs for agitation. ECT begun friday 09/08 - next NPO after 7 pm on wednesday. Vanna perdomo [facility] amenable to DC vraylar, supports medication holiday. vraylar taper completed as of 09/12. prazosin being titrated, increased to 10 mg QHS as of 09/13, 12 mg as of 09/15. haldol 5 TID decreased to 2 TID for 3 days, then DCed entirely. I spent minutes with the patient and/or on the patient floor today, greater than?50% of which was spent counseling/coordinating care. Reason for contiued inpatient stay Substantial Risk for: harm to self, inability to function and rapid decompensation
[2021-09-15] MEDS: Lithium Carbonate 300 MG CAPSULE 600 MG PO (21:50)
[2021-09-15] MEDS: Prazosin HCL 1 MG CAPSULE 2 MG PO (22:29)
[2021-09-15] MEDS: Prazosin HCL 5 MG CAPSULE 10 MG PO (22:29)
[2021-09-16 08:30] VITALS: BP 162/96; PULSE 124; RESP 16; TEMP 36.9; O2SAT 94
[2021-09-16] MEDS: Topiramate 25 MG TABLET PO (08:40)
[2021-09-16] MEDS: DULoxetine HCl 60 MG CAPSULE.DR PO (08:40)
[2021-09-16] MEDS: Loratadine 10 MG TABLET PO (08:40)
[2021-09-16] MEDS: Omeprazole 20 MG CAPSULE.DR PO (08:40)
[2021-09-16] MEDS: Fluticasone/Vilanterol 100/25 BLST.W.DEV 1 PUFF INHALE (09:46)
[2021-09-16] MEDS: Ammonium Lactate 12 % Cream 140 GM TUBE 1 APPL TOPICAL (11:05)
[2021-09-16] MEDS: Silver Sulfadiazine 1 % Cream 20 GM TUBE 1 APPL TOPICAL (11:05)
[2021-09-16] MEDS: Benztropine Mesylate 0.5 MG TABLET PO ×2 (12:59→20:35)
--- NOTE | 2021-09-16 13:44 | P.PNPSI_ITS ---
Subjective Subjective Date of Service: 09/16/21 Reason For Visit: SI Interim History: pt reports feeling OK today, no strong thoughts of suicide or self-harm. states she would like to discharge to see her staff and peers at [facility] again. able to hear reasons for delay in discharge to end of week, no strong emotional response to the disappointment. agreeable to continue to taper haldol - will get 75 mg decanoate shot today. worried about tremors, agreed to trial of cogentin to see if anything changes (tremor severity does seem to clearly vary with pt's attention to it or lack thereof, however). per staff, slept well last night. significant hand tremor noted. no behavioral concerns for several days. Mental Status Exam Mental Status Exam Narrative: appropriately dressed and groomed, many scars from cutting across forearms. no bandage on her forehead, vertical lac visible, closed. hand tremor noted. cooperative with interview. speech nml in rate. nml tone, nml latency, nml loudness and amount. thoughts linear, logical. affect somewhat more flexible, appropriate to context, normo-intense, non-labile. no SI/SIBI/HI/AVH expressed. Diagnostics Vital Signs (24Hr): Vital Signs - 24 hr 09/15/21 21:54 Temperature 98.2 F Pulse Rate 100 Blood Pressure 133/86 Pulse Oximetry 98 BMI result [place] 4 Body Mass Index [place] 4 51.7 [place] 4 [place] 4 Labs Results: 09/02/21 18:38 09/02/21 18:38 Medications Medications Current Medications Acetaminophen (Acetaminophen 325 Mg Tablet) 650 mg PO Q6H PRN PRN Reason: Pain (Scale Score 1-3) Last Admin: 09/12/21 21:44 Dose: 650 mg Documented by: Al Hydroxide/Mg Hydroxide (Magnesium Hydrox/Alum Hydrox 30 Ml Oral.Susp) 30 ml PO Q6H PRN PRN Reason: Heartburn/Nausea Albuterol Sulfate (Albuterol Sulfate 90 Mcg 8 Gm Inhaler) 2 puff INHALE Q4H PRN PRN Reason: Wheezing Last Admin: 09/05/21 22:02 Dose: 2 puff Documented by: Benztropine Mesylate (Benztropine Mesylate 0.5 Mg Tablet) 0.5 mg PO BID [facility] Last Admin: 09/16/21 12:59 Dose: 0.5 mg Documented by: Heparin Sodium (Porcine) 50 (units/ Sodium Chloride 5 ml) 0 units IVFLUSH DAILY [facility] Last Admin: 09/16/21 11:05 Dose: Not Given Documented by: Docusate Sodium (Docusate Sodium 100 Mg Capsule) 100 mg PO BEDTIME PRN PRN Reason: Constipation Duloxetine HCl (Duloxetine Hcl 60 Mg Capsule.) 60 mg PO DAILY [facility] Last Admin: 09/16/21 08:40 Dose: 60 mg Documented by: Fluticasone/Vilanterol (Fluticasone/Vilanterol 100/25 Blst.W.Dev) 1 puff INHALE RDAILY [facility] Last Admin: 09/16/21 09:46 Dose: 1 puff Documented by: Haloperidol (Haloperidol 5 Mg Tablet) 5 mg PO Q4H PRN PRN Reason: Agitation Last Admin: 09/14/21 11:30 Dose: 5 mg Documented by: Haloperidol Decanoate (Haloperidol Decanoate 50 Mg/Ml Ampul) 75 mg IM Q28D@1300 [facility] Last Admin: 09/16/21 12:45 Dose: 75 mg Documented by: Hydroxyzine HCl (Hydroxyzine Hcl 50 Mg Tablet) 50 mg PO BID PRN PRN Reason: anxiety Last Admin: 09/15/21 02:36 Dose: 50 mg Documented by: Lactic Acid (Ammonium Lactate 12 % Cream 140 Gm Tube) 1 appl TOPICAL BID PRN; Protocol PRN Reason: Dry Skin Last Admin: 09/16/21 11:05 Dose: 1 appl Documented by: [place] Carbonate ([place] Carbonate 300 Mg Capsule) 600 mg PO BEDTIME [facility] Last Admin: 09/15/21 21:50 Dose: 600 mg Documented by: Loratadine (Loratadine 10 Mg Tablet) 10 mg PO DAILY [facility] Last Admin: 09/16/21 08:40 Dose: 10 mg Documented by: Magnesium Hydroxide (Milk Of Magnesia 30 Ml Oral.Susp) 30 ml PO DAILY PRN PRN Reason: Constipation Nicotine Polacrilex (Nicotine Polacrilex 2 Mg Gum) 2 mg BUCCAL Q2H PRN PRN Reason: nicotine cravings Omeprazole (Omeprazole 20 Mg Capsule.) 20 mg PO DAILY [facility] Last Admin: 09/16/21 08:40 Dose: 20 mg Documented by: Prazosin HCl (Prazosin Hcl 5 Mg Capsule) 10 mg PO BEDTIME [facility]; Protocol Last Admin: 09/15/21 22:29 Dose: 10 mg Documented by: Prazosin HCl (Prazosin Hcl 1 Mg Capsule) 4 mg PO BEDTIME [facility]; Protocol Senna (Sennosides 8.6 Mg Tablet) 17.2 mg PO BEDTIME [facility] Last Admin: 09/15/21 22:31 Dose: Not Given Documented by: Silver Sulfadiazine (Silver Sulfadiazine 1 % Cream 20 Gm Tube) 1 appl TOPICAL BID [facility] Last Admin: 09/16/21 11:05 Dose: 1 appl Documented by: Sumatriptan Succinate (Sumatriptan Succinate 50 Mg Tablet) 50 mg PO DAILY PRN PRN Reason: Migraine Headache Last Admin: 09/11/21 08:45 Dose: 50 mg Documented by: Topiramate (Topiramate 25 Mg Tablet) 25 mg PO BID [facility] Last Admin: 09/16/21 08:40 Dose: 25 mg Documented by: Valacyclovir HCl (Valacycyclovir Hcl 500 Mg Tablet) 500 mg PO DAILY [facility] Last Admin: 09/16/21 08:40 Dose: 500 mg Documented by: Allergies Allergies Allergy/AdvReac Type Severity Reaction Status Date / Time carbamazepine [From AdvReac Unknown NAUSEA & Verified 06/01/21 20:14 TEGRETOL] VOMITING Assessment & Plan Assessment & Plan (1) Suicidal ideation: Status: Acute Code(s): R45.851 - Suicidal ideations Assessment and Plan: chronic, at baseline (2) Chronic post-traumatic stress disorder (PTSD): Status: Chronic Code(s): F43.12 - Post-traumatic stress disorder, chronic Assessment and Plan: everette Spangler, prazosin being titrated up. (3) Lacerations of multiple sites of right arm: Status: Acute Code(s): S41.111A - Laceration without foreign body of right upper arm, initial encounter Assessment and Plan: healed (4) Borderline personality disorder: Status: Chronic Code(s): F60.3 - Borderline personality disorder Assessment and Plan: short stay if possible. Plan 1:1 for safety. continue most home medications; T/C medication holiday per conversation with avni aguero prescriber.. haldol 5 and ativan 1 PRNs for agitation. ECT begun friday 09/08 - next NPO after 7 pm on tuesday. Prabhakar of [facility] amenable to DC vraylar, supports medication holiday. vraylar taper completed as of 09/12. prazosin being titrated, increased to 10 mg QHS as of 09/13, 12 mg as of 09/15, 14 mg as of 09/16. haldol 5 TID decreased to 2 TID for 3 days, then DCed entirely. haldol decanoate decreased from 100 mg monthly to 75 mg monthly as of 09/16. next due 10/14. cogentin 0.5 mg BID added for tremor on 09/16. I spent minutes with the patient and/or on the patient floor today, greater than?50% of which was spent counseling/coordinating care. Reason for contiued inpatient stay Substantial Risk for: harm to self, inability to function and rapid decompensation
[2021-09-16] MEDS: hydrOXYzine HCL 50 MG TABLET PO (14:09)
[2021-09-16] MEDS: HaloperidoL 5 MG TABLET PO (14:09)
[2021-09-16] MEDS: LORazepam 1 MG TABLET PO (15:19)
[2021-09-16 18:00] VITALS: BP 150/103; PULSE 87; RESP 18; TEMP 36.7; O2SAT 95
[2021-09-16] MEDS: Prazosin HCL 1 MG CAPSULE 4 MG PO (20:34)
[2021-09-16] MEDS: Prazosin HCL 5 MG CAPSULE 10 MG PO (20:35)
[2021-09-17] VITALS (10 sets, daily range): BP systolic 113–141; BP diastolic 68–96; PULSE 80–101; RESP 16–20; TEMP 36.3–37.4; O2SAT 91–99; BMI 46.4
--- NOTE | 2021-09-17 07:06 | MHC.SHP ---
Pre-Procedural Eval Section A Date of Service: 09/17/21 The patient is an INPATIENT: Yes Changes since office visit: No Cold of Flu in the past 2 weeks, No New Medical Problems, No Changes in Medication and No Patient answered all questions The History & Physical has been completed within 30 days and I have reviewed it.: Yes Section B Chief Complaint: SI Allergies: Allergies Allergy/AdvReac Type Severity Reaction Status Date / Time carbamazepine [From TEGRETOL] AdvReac Unknown NAUSEA & Verified 06/01/21 20:14 VOMITING Plan I have reviewed the history and physical and performed a pertinent physical examination on my patient. No changes have occurred unless specified.
--- NOTE | 2021-09-17 07:06 | HO.ECTPROC ---
ECT Procedure Note Diagnosis/Treatment Date of Service: 09/17/21 Diagnosis: Bipolar disorder Previous ECT Date: 09/15/21 Interval Clinical Notes: The patient remains dysphoric with visual hallucinations and night terrors, still inpatient, very shaky with tremors ECT Settings Device: THYMATRON DGx Electrode Placement: Bitemporal Program/Pulse Width: 0.50 Energy Percent: 100 Seizure Duration By EEG (in seconds): 0 (not registered by the computer but seizure activity until 23s) By Motor Observation (in seconds): 17 Medications Administration General Anesthetic: Etomidate (16) Muscle Relaxant: Succinylcholine (100) Ancillary Medications Analgesics: Torodol - Pre ECT Anti-emetics: Zofran - Pre ECT Miscillaneous Medications: Propofol Airway Management Airway Management: Bag Mask Ventilation Treatment Recommendations No Changes Recommended: No change Pt Tolerated Procedure w/o Issue: Yes
--- NOTE | 2021-09-17 07:31 | P.CONAN_ITS ---
[facility] Active Problems Active Problems: All Active Problems (Updated 09/04/21 @ 16:40 by Bubba Au MD) Pre-op evaluation (Acute) Suicidal ideation (Acute) Schizoaffective disorder, depressive type (Chronic) Hernia (Chronic) Chronic post-traumatic stress disorder (PTSD) (Chronic) Sprain of anterior cruciate ligament of right knee (Acute) Self-inflicted injury (Acute) Lacerations of multiple sites of right arm (Acute) Injury of ligament of right knee (Acute) Increased BMI (Acute) GERD (gastroesophageal reflux disease) (Acute) Borderline personality disorder (Chronic) Past Medical History Medical History Acute post-traumatic stress disorder Adjustment disorder Anxiety Asthma Borderline personality disorder Chronic post-traumatic stress disorder (PTSD) COPD (chronic obstructive pulmonary disease) Depression GERD (gastroesophageal reflux disease) Increased BMI Injury, self-inflicted Intentional self-harm PTSD (post-traumatic stress disorder) Recurrent major depression-severe Schizoaffective disorder Self-harming behavior Suicidal ideation Suicidal ideation Family History Family history of problems with anesthesia: No Surgical History History of Problems with Anesthesia: No Social History Social History Household Members: Other Household Members Other:: retirement Housing: Apartment Housing Other:: residential home Do you presently have visiting nurse or other home services: No Alcohol intake: unknown Patient Tobacco Use Status: Former Tobacco user Quit Date: 02-19-21 Tobacco use type: Cigarette Cigarette Packs Per Day: 1 Cigarettes Per Day: 20.0 Years Smoked: 17 e-Cigarette/Vaping Use: Never Used Second Hand Smoke Exposure: Yes Use of substances other than those prescribed or required for medical reasons: Yes Substance Use Type: Marijuana and Opiates Currently Displaying Signs/Symptoms of Drug Intoxication Withdrawal: No Spiritual Healthcare Practices: n/a Orthodoxy Healthcare Practices: n/a Cultural Healthcare Practices: n/a Are you DNR?: No Advance Directives: No Do you have thoughts of harming others: None Do you have a plan to hurt others: No Plan Recently lost weight without trying: No Nutrition Risks: No Nutritional Risk Patient : No : No Poor oral hygiene: No service: No Sexual orientation: Did not discuss Meds Allergies Allergy/AdvReac Type Severity Reaction Status Date / Time carbamazepine [From AdvReac Unknown NAUSEA & Verified 06/01/21 20:14 TEGRETOL] VOMITING Active Medications: Current Medications Acetaminophen (Acetaminophen 325 Mg Tablet) 650 mg PO Q6H PRN PRN Reason: Pain (Scale Score 1-3) Last Admin: 09/12/21 21:44 Dose: 650 mg Documented by: Al Hydroxide/Mg Hydroxide (Magnesium Hydrox/Alum Hydrox 30 Ml Oral.Susp) 30 ml PO Q6H PRN PRN Reason: Heartburn/Nausea Albuterol Sulfate (Albuterol Sulfate 90 Mcg 8 Gm Inhaler) 2 puff INHALE Q4H PRN PRN Reason: Wheezing Last Admin: 09/05/21 22:02 Dose: 2 puff Documented by: Benztropine Mesylate (Benztropine Mesylate 0.5 Mg Tablet) 0.5 mg PO BID [facility] Last Admin: 09/16/21 20:35 Dose: 0.5 mg Documented by: Heparin Sodium (Porcine) 50 (units/ Sodium Chloride 5 ml) 0 units IVFLUSH DAILY [facility] Last Admin: 09/16/21 11:05 Dose: Not Given Documented by: Docusate Sodium (Docusate Sodium 100 Mg Capsule) 100 mg PO BEDTIME PRN PRN Reason: Constipation Duloxetine HCl (Duloxetine Hcl 60 Mg Capsule.Dr) 60 mg PO DAILY [facility] Last Admin: 09/16/21 08:40 Dose: 60 mg Documented by: Fluticasone/Vilanterol (Fluticasone/Vilanterol 100/25 Blst.W.Dev) 1 puff INHALE RDAILY [facility] Last Admin: 09/16/21 09:46 Dose: 1 puff Documented by: Haloperidol (Haloperidol 5 Mg Tablet) 5 mg PO Q4H PRN PRN Reason: Agitation Last Admin: 09/16/21 14:09 Dose: 5 mg Documented by: Haloperidol Decanoate (Haloperidol Decanoate 50 Mg/Ml Ampul) 75 mg IM Q28D@1300 [facility] Last Admin: 09/16/21 12:45 Dose: 75 mg Documented by: Hydroxyzine HCl (Hydroxyzine Hcl 50 Mg Tablet) 50 mg PO BID PRN PRN Reason: anxiety Last Admin: 09/16/21 14:09 Dose: 50 mg Documented by: Lactic Acid (Ammonium Lactate 12 % Cream 140 Gm Tube) 1 appl TOPICAL BID PRN; Protocol PRN Reason: Dry Skin Last Admin: 09/16/21 11:05 Dose: 1 appl Documented by: [place] Carbonate ([place] Carbonate 300 Mg Capsule) 600 mg PO BEDTIME [facility] Last Admin: 09/16/21 22:14 Dose: Not Given Documented by: Loratadine (Loratadine 10 Mg Tablet) 10 mg PO DAILY [facility] Last Admin: 09/16/21 08:40 Dose: 10 mg Documented by: Magnesium Hydroxide (Milk Of Magnesia 30 Ml Oral.Susp) 30 ml PO DAILY PRN PRN Reason: Constipation Nicotine Polacrilex (Nicotine Polacrilex 2 Mg Gum) 2 mg BUCCAL Q2H PRN PRN Reason: nicotine cravings Omeprazole (Omeprazole 20 Mg Capsule.Dr) 20 mg PO DAILY [facility] Last Admin: 09/16/21 08:40 Dose: 20 mg Documented by: Prazosin HCl (Prazosin Hcl 5 Mg Capsule) 10 mg PO BEDTIME [facility]; Protocol Last Admin: 09/16/21 20:35 Dose: 10 mg Documented by: Prazosin HCl (Prazosin Hcl 1 Mg Capsule) 4 mg PO BEDTIME [facility]; Protocol Last Admin: 09/16/21 20:34 Dose: 4 mg Documented by: Senna (Sennosides 8.6 Mg Tablet) 17.2 mg PO BEDTIME [facility] Last Admin: 09/16/21 22:14 Dose: Not Given Documented by: Silver Sulfadiazine (Silver Sulfadiazine 1 % Cream 20 Gm Tube) 1 appl TOPICAL BID [facility] Last Admin: 09/16/21 22:14 Dose: Not Given Documented by: Sumatriptan Succinate (Sumatriptan Succinate 50 Mg Tablet) 50 mg PO DAILY PRN PRN Reason: Migraine Headache Last Admin: 09/11/21 08:45 Dose: 50 mg Documented by: Topiramate (Topiramate 25 Mg Tablet) 25 mg PO BID [facility] Last Admin: 09/16/21 22:14 Dose: Not Given Documented by: Valacyclovir HCl (Valacycyclovir Hcl 500 Mg Tablet) 500 mg PO DAILY [facility] Last Admin: 09/16/21 08:40 Dose: 500 mg Documented by: Home Medications Medication Instructions Recorded Confirmed Last Taken Type omeprazole 20 20 mg PO DAILY 11/29/20 09/01/21 08/02/21 07:00 History mg capsule,delayed release cetirizine 10 10 mg PO DAILY 12/24/20 09/01/2108/02/21 08:00 History mg tablet haloperidol 100 mg IM Q4W 03/30/21 09/01/21 08/16/21 History decanoate 100 mg/mL intramuscular solution (Haldol Decanoate) lorazepam 1 mg 1 mg PO TID PRN 03/30/21 09/01/21 08/01/21 20:00 History tablet prazosin 2 mg 5 mg PO BEDTIME 03/30/21 09/01/21 08/01/21 20:00 History capsule cariprazine 3 6 mg PO DAILY 07/18/21 09/01/21 08/02/21 08:00 History mg capsule (Vraylar) fluticasone 250 1 puff 08/02/21 09/01/21 08/02/21 08:00 History mcg-salmeterol INHALATION BID 50 mcg/dose blistr powdr for inhalation (Advair Diskus) topiramate 25 1 tab PO BID 08/02/21 09/01/21 08/02/21 07:00 History mg tablet duloxetine 60 1 cap PO QAM 08/03/21 09/01/21 08/02/21 08:00 History mg capsule,delayed release lithium 2 tab PO 08/30/21 09/01/21 Unknown History carbonate 300 BEDTIME mg tablet acetaminophen 500 mg PO Q6H 09/01/21 09/01/21 Unknown History 500 mg tablet PRN albuterol 2.5 mg 09/01/21 09/01/21 Unknown History sulfate INHALATION Q4H PRN albuterol 2 inh 09/01/21 09/01/21 Unknown History sulfate 90 INHALATION Q4H mcg/actuation PRN breath activated powder inhaler (ProAir RespiClick) haloperidol 5 1 tab PO BID 09/01/21 09/01/21 Unknown History mg tablet PRN hydroxyzine 1 cap PO BID 09/01/21 09/01/21 Unknown History pamoate 50 mg PRN capsule ibuprofen 600 600 mg PO Q8H 09/01/21 09/01/21 Unknown History mg tablet PRN sumatriptan 50 mg PO DAILY 09/01/21 09/01/21 Unknown History succinate 50 mg PRN tablet trazodone 50 mg 100 mg PO 09/01/21 09/01/21 Unknown History tablet BEDTIME PRN Exam Exam Date and Time: September 17, 2021 0731 Height,Weight and Vital Signs: Height 4 ft 11 in Weight 104.326 kg Last Vital Signs Temp 99.3 F 09/17/21 07:24 Pulse 84 09/17/21 07:29 Resp 20 09/17/21 07:29 BP 127/88 09/17/21 07:29 Pulse Ox 93 09/17/21 07:29 Pertinent Lab Results Pertinent Lab Results: Laboratory Tests 09/01/21 09/01/21 09/01/21 20:13 20:36 20:36 WBC RBC Hgb Hct MCV MCH MCHC RDW Plt Count MPV Immature Gran % (Auto) Neut % (Auto) Lymph % (Auto) [place] % (Auto) Eos % (Auto) Baso % (Auto) Lymph # (Auto) [place] # (Auto) Eos # (Auto) Baso # (Auto) Abs Immat Gran (auto) Absolute Neuts (auto) Absolute Nucleated RBC Nucleated RBC % (auto) Sodium Potassium Chloride Carbon Dioxide Anion Gap BUN Creatinine Estim Creat Clear Calc Estimated GFR Random Glucose Calcium Total Bilirubin AST ALT Alkaline Phosphatase Total Protein Albumin Urine Color Urine Appearance Urine pH Ur Specific [place] Urine Protein Urine Glucose (UA) Urine Ketones Urine Blood Urine Nitrite Ur Leukocyte Esterase Urine Test NEGATIVE Urine Opiates Screen Not Detected Urine Fentanyl Screen POSITIVE H Ur Barbiturates Screen Not Detected Ur Phencyclidine Scrn Not Detected Ur Amphetamines Screen Not Detected U Benzodiazepines Scrn Not Detected Urine Cocaine Screen Not Detected U Marijuana (THC) Screen POSITIVE H COVID-19 (RAFAL) Negative COVID-19 Clin Com See Note 09/02/21 09/02/21 09/02/21 18:38 18:38 18:38 WBC 7.4 RBC 4.32 Hgb 11.4 L Hct 36.3 L MCV 84.0 MCH 26.4 L MCHC 31.4 RDW 16.3 H Plt Count 320 MPV 11.6 Immature Gran % (Auto) 0.1 Neut % (Auto) 60.7 Lymph % (Auto) 32.9 [place] % (Auto) 5.3 Eos % (Auto) 0.7 Baso % (Auto) 0.3 Lymph # (Auto) 2.4 [place] # (Auto) 0.4 Eos # (Auto) 0.1 Baso # (Auto) 0.0 Abs Immat Gran (auto) 0.01 Absolute Neuts (auto) 4.5 Absolute Nucleated RBC 0.000 Nucleated RBC % (auto) 0.0 Sodium 140 Potassium 4.2 Chloride 114 H Carbon Dioxide 20 L Anion Gap 10 L BUN 9 Creatinine 0.77 Estim Creat Clear Calc 107.4 Estimated GFR > 60 Random Glucose 110 Calcium 9.0 Total Bilirubin 0.2 AST 15 ALT 10 Alkaline Phosphatase 62 Total Protein 6.2 L Albumin 3.6 Urine Color Urine Appearance Urine pH Ur Specific [place] Urine Protein Urine Glucose (UA) Urine Ketones Urine Blood Urine Nitrite Ur Leukocyte Esterase Urine Test Urine Opiates Screen Urine Fentanyl Screen Ur Barbiturates Screen Ur Phencyclidine Scrn Ur Amphetamines Screen U Benzodiazepines Scrn Urine Cocaine Screen U Marijuana (THC) Screen COVID-19 (RAFAL) Negative COVID-19 Clin Com See Note 09/12/21 18:37 WBC RBC Hgb Hct MCV MCH MCHC RDW Plt Count MPV Immature Gran % (Auto) Neut % (Auto) Lymph % (Auto) [place] % (Auto) Eos % (Auto) Baso % (Auto) Lymph # (Auto) [place] # (Auto) Eos # (Auto) Baso # (Auto) Abs Immat Gran (auto) Absolute Neuts (auto) Absolute Nucleated RBC Nucleated RBC % (auto) Sodium Potassium Chloride Carbon Dioxide Anion Gap BUN Creatinine Estim Creat Clear Calc Estimated GFR Random Glucose Calcium Total Bilirubin AST ALT Alkaline Phosphatase Total Protein Albumin Urine Color YELLOW Urine Appearance HAZY Urine pH 5.5 Ur Specific [place] >= 1.030 H Urine Protein NEG Urine Glucose (UA) NEG Urine Ketones NEG Urine Blood NEG Urine Nitrite NEG Ur Leukocyte Esterase NEG Urine Test Urine Opiates Screen Urine Fentanyl Screen Ur Barbiturates Screen Ur Phencyclidine Scrn Ur Amphetamines Screen U Benzodiazepines Scrn Urine Cocaine Screen U Marijuana (THC) Screen COVID-19 (RAFAL) COVID-19 Clin Com Airway Mallampati Class: III TM Dist: >3cm Neck ROM: Full Loose/Missing/Broken Teeth: No Heart: RRR Lungs: CTA Assessment and Plan Final Anesthetic Review Family History of Problems with Anesthesia: No History of Problems with Anesthesia: No NPO: Yes ASA Class: III Final Preanesthetic Review: Meds/Allgs Chart Reviewed, Consent Obtained/Reviewed and Anes Risks/Benef Reviewed Patient Risk: Intermediate Procedure Risk: Intermediate Anesthetic Plan Anesthetic Plan: GA Disposition: Standard PACU
[2021-09-17] MEDS: Topiramate 25 MG TABLET PO ×2 (08:29→20:26)
[2021-09-17] MEDS: Omeprazole 20 MG CAPSULE.DR PO (08:29)
[2021-09-17] MEDS: Loratadine 10 MG TABLET PO (08:29)
[2021-09-17] MEDS: DULoxetine HCl 60 MG CAPSULE.DR PO (08:29)
[2021-09-17] MEDS: Benztropine Mesylate 0.5 MG TABLET PO ×2 (08:29→20:26)
[2021-09-17] MEDS: Fluticasone/Vilanterol 100/25 BLST.W.DEV 1 PUFF INHALE (09:57)
[2021-09-17] MEDS: Ammonium Lactate 12 % Cream 140 GM TUBE 1 APPL TOPICAL (09:57)
[2021-09-17] MEDS: Silver Sulfadiazine 1 % Cream 20 GM TUBE 1 APPL TOPICAL ×2 (09:57→20:27)
[2021-09-17] MEDS: HaloperidoL 5 MG TABLET PO ×4 (10:45→20:27)
[2021-09-17] MEDS: hydrOXYzine HCL 50 MG TABLET PO (10:45)
[2021-09-17] MEDS: bisacodyL 5 MG TABLET.DR 10 MG PO (11:16)
[2021-09-17] MEDS: LORazepam 1 MG TABLET 2 MG PO (12:49)
[2021-09-17] MEDS: Prazosin HCL 5 MG CAPSULE 10 MG PO (20:24)
[2021-09-17] MEDS: Prazosin HCL 1 MG CAPSULE 4 MG PO (20:24)
[2021-09-17] MEDS: Sennosides 8.6 MG TABLET 17.2 MG PO (20:26)
[2021-09-17] MEDS: Lithium Carbonate 300 MG CAPSULE 600 MG PO (20:26)
--- NOTE | 2021-09-17 20:58 | P.PNPSI_ITS ---
Subjective Subjective Date of Service: 09/17/21 Reason For Visit: SI Interim History: pt reports substantially worsened Sx today compared with the past several days. she states she does not think going home on wednesday will be a good plan for her. she endorses CAH to harm herself, as well as simply not feeling herself for the past week. she states she feels like a different person, in a different body. she also reports visions of the war, but she cannot say what war it is. it feels like it is going on around her. per discussion with Dr. Silva, ECT will be halted moving forward, as it does not appear to be helpful for her. per staff, attending some groups. had ECT this morning. expressed concern about her waking dreams ( the war ) and tremor and their possible relationshop to ECT. c/o AH that don't bother her much. feeling overstimulated on the unit. not eating much but drinking tata jorge alberto. c/o constipation, asking for dulcolax. Mental Status Exam Mental Status Exam Narrative: appropriately dressed and groomed, many scars from cutting across forearms. no bandage on her forehead, vertical lac visible, closed. hand tremor noted. cooperative with interview. speech nml in rate. flattened tone, nml latency, decr loudness, nml amount. thoughts linear, illogical (inability to explain her War experiences). affect constricted, appropriate to context, hyper-intense, non-labile. c/o SI/CAH. no HI/VH expressed. Diagnostics Vital Signs (24Hr): Vital Signs - 24 hr 09/17/21 05:55 09/17/21 06:27 09/17/21 07:24 Temperature 97.4 F 97.3 F 99.3 F Pulse Rate 95 97 99 Respiratory Rate 17 18 20 Blood Pressure 133/76 140/91 H 135/96 H Pulse Oximetry 97 98 95 09/17/21 07:29 09/17/21 07:34 09/17/21 07:39 Temperature Pulse Rate 84 80 Respiratory Rate 20 18 19 Blood Pressure 127/88 125/79 138/87 Pulse Oximetry 93 91 L 97 09/17/21 07:54 09/17/21 08:09 09/17/21 08:15 Temperature 98.8 F 98.4 F Pulse Rate 99 99 101 H Respiratory Rate 18 18 16 Blood Pressure 113/81 141/84 H 136/68 Pulse Oximetry 97 97 97 09/17/21 20:25 Temperature 97.8 F Pulse Rate 88 Respiratory Rate 18 Blood Pressure 117/72 Pulse Oximetry 99 BMI result Verdana 4 Body Mass Index Verdana 4 46.4 Verdana 4 Verdana 4 Labs Results: 09/02/21 18:38 09/02/21 18:38 Medications Medications Current Medications Acetaminophen (Acetaminophen 325 Mg Tablet) 650 mg PO Q6H PRN PRN Reason: Pain (Scale Score 1-3) Last Admin: 09/12/21 21:44 Dose: 650 mg Documented by: Al Hydroxide/Mg Hydroxide (Magnesium Hydrox/Alum Hydrox 30 Ml Oral.Susp) 30 ml PO Q6H PRN PRN Reason: Heartburn/Nausea Albuterol Sulfate (Albuterol Sulfate 90 Mcg 8 Gm Inhaler) 2 puff INHALE Q4H PRN PRN Reason: Wheezing Last Admin: 09/05/21 22:02 Dose: 2 puff Documented by: Benztropine Mesylate (Benztropine Mesylate 0.5 Mg Tablet) 0.5 mg PO BID [facility] Last Admin: 09/17/21 20:26 Dose: 0.5 mg Documented by: Bisacodyl (Bisacodyl 5 Mg Tablet.) 10 mg PO DAILY PRN PRN Reason: Constipation Heparin Sodium (Porcine) 50 (units/ Sodium Chloride 5 ml) 0 units IVFLUSH DAILY [facility] Last Admin: 09/17/21 10:47 Dose: Not Given Documented by: Docusate Sodium (Docusate Sodium 100 Mg Capsule) 100 mg PO BEDTIME PRN PRN Reason: Constipation Duloxetine HCl (Duloxetine Hcl 60 Mg Capsule.Dr) 60 mg PO DAILY [facility] Last Admin: 09/17/21 08:29 Dose: 60 mg Documented by: Fluticasone/Vilanterol (Fluticasone/Vilanterol 100/25 Blst.W.Dev) 1 puff INHALE RDAILY [facility] Last Admin: 09/17/21 09:57 Dose: 1 puff Documented by: Haloperidol (Haloperidol 5 Mg Tablet) 5 mg PO Q4H PRN PRN Reason: Agitation Last Admin: 09/17/21 10:45 Dose: 5 mg Documented by: Haloperidol (Haloperidol 5 Mg Tablet) 5 mg PO TID [facility] Last Admin: 09/17/21 20:27 Dose: 5 mg Documented by: Haloperidol Decanoate (Haloperidol Decanoate 50 Mg/Ml Ampul) 75 mg IM Q28D@1300 [facility] Last Admin: 09/16/21 12:45 Dose: 75 mg Documented by: Hydroxyzine HCl (Hydroxyzine Hcl 50 Mg Tablet) 50 mg PO BID PRN PRN Reason: anxiety Last Admin: 09/17/21 10:45 Dose: 50 mg Documented by: Lactic Acid (Ammonium Lactate 12 % Cream 140 Gm Tube) 1 appl TOPICAL BID PRN; Protocol PRN Reason: Dry Skin Last Admin: 09/17/21 09:57 Dose: 1 appl Documented by: Toppers Carbonate (Toppers Carbonate 300 Mg Capsule) 600 mg PO BEDTIME [facility] Last Admin: 09/17/21 20:26 Dose: 600 mg Documented by: Loratadine (Loratadine 10 Mg Tablet) 10 mg PO DAILY [facility] Last Admin: 09/17/21 08:29 Dose: 10 mg Documented by: Magnesium Hydroxide (Milk Of Magnesia 30 Ml Oral.Susp) 30 ml PO DAILY PRN PRN Reason: Constipation Nicotine Polacrilex (Nicotine Polacrilex 2 Mg Gum) 2 mg BUCCAL Q2H PRN PRN Reason: nicotine cravings Omeprazole (Omeprazole 20 Mg Capsule.Dr) 20 mg PO DAILY [facility] Last Admin: 09/17/21 08:29 Dose: 20 mg Documented by: Prazosin HCl (Prazosin Hcl 5 Mg Capsule) 10 mg PO BEDTIME [facility]; Protocol Last Admin: 09/17/21 20:24 Dose: 10 mg Documented by: Prazosin HCl (Prazosin Hcl 1 Mg Capsule) 4 mg PO BEDTIME [facility]; Protocol Last Admin: 09/17/21 20:24 Dose: 4 mg Documented by: Senna (Sennosides 8.6 Mg Tablet) 17.2 mg PO BEDTIME [facility] Last Admin: 09/17/21 20:26 Dose: 17.2 mg Documented by: Silver Sulfadiazine (Silver Sulfadiazine 1 % Cream 20 Gm Tube) 1 appl TOPICAL BID [facility] Last Admin: 09/17/21 20:27 Dose: 1 appl Documented by: Sumatriptan Succinate (Sumatriptan Succinate 50 Mg Tablet) 50 mg PO DAILY PRN PRN Reason: Migraine Headache Last Admin: 09/11/21 08:45 Dose: 50 mg Documented by: Topiramate (Topiramate 25 Mg Tablet) 25 mg PO BID [facility] Last Admin: 09/17/21 20:26 Dose: 25 mg Documented by: Valacyclovir HCl (Valacycyclovir Hcl 500 Mg Tablet) 500 mg PO DAILY [facility] Last Admin: 09/17/21 08:29 Dose: 500 mg Documented by: Allergies Allergies Allergy/AdvReac Type Severity Reaction Status Date / Time carbamazepine [From AdvReac Unknown NAUSEA & Verified 06/01/21 20:14 TEGRETOL] VOMITING Assessment & Plan Assessment & Plan (1) Suicidal ideation: Status: Acute Code(s): R45.851 - Suicidal ideations Assessment and Plan: chronic, at baseline (2) Chronic post-traumatic stress disorder (PTSD): Status: Chronic Code(s): F43.12 - Post-traumatic stress disorder, chronic Assessment and Plan: vraylar DCed, prazosin being titrated up. (3) Lacerations of multiple sites of right arm: Status: Acute Code(s): S41.111A - Laceration without foreign body of right upper arm, initial encounter Assessment and Plan: healed (4) Borderline personality disorder: Status: Chronic Code(s): F60.3 - Borderline personality disorder Assessment and Plan: short stay if possible. Plan 1:1 for safety. continue most home medications; T/C medication holiday per conversation with avni aguero prescriber.. haldol 5 and ativan 1 PRNs for agitation. ECT begun friday 09/08. had 5 treatments, then Tx stopped after 09/17 due to destabilization of unclear etiology. Vanna perdomo [facility] amenable to DC vraylar, supports medication holiday. vraylar taper completed as of 09/12. prazosin being titrated, increased to 10 mg QHS as of 09/13, 12 mg as of 09/15, 14 mg as of 09/16. haldol 5 TID decreased to 2 TID for 3 days, then DCed entirely. haldol decanoate decreased from 100 mg monthly to 75 mg monthly as of 09/16. next due 10/14. cogentin 0.5 mg BID added for tremor on 09/16. haldol 5 mg TID reinstated after decompensation in the 09/16 to 09/17 period. I spent minutes with the patient and/or on the patient floor today, greater than?50% of which was spent counseling/coordinating care. Reason for contiued inpatient stay Substantial Risk for: harm to self, inability to function and rapid decom pensation
[2021-09-18 10:00] VITALS: BMI 48.4
[2021-09-18] MEDS: Fluticasone/Vilanterol 100/25 BLST.W.DEV 1 PUFF INHALE (10:26)
[2021-09-18] MEDS: DULoxetine HCl 60 MG CAPSULE.DR PO (10:27)
[2021-09-18] MEDS: Loratadine 10 MG TABLET PO (10:27)
[2021-09-18] MEDS: Topiramate 25 MG TABLET PO ×2 (10:27→21:01)
[2021-09-18] MEDS: HaloperidoL 5 MG TABLET PO ×3 (10:27→21:00)
[2021-09-18] MEDS: Benztropine Mesylate 0.5 MG TABLET PO ×2 (10:27→21:00)
[2021-09-18] MEDS: Omeprazole 20 MG CAPSULE.DR PO (10:28)
[2021-09-18] MEDS: Loperamide HCl 2 MG CAPSULE PO (11:35)
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
[2021-09-18 18:00] VITALS: BP 120/72; PULSE 98; RESP 16; TEMP 36.6; O2SAT 98
[2021-09-18] MEDS: Prazosin HCL 1 MG CAPSULE 4 MG PO (20:59)
[2021-09-18] MEDS: Lithium Carbonate 300 MG CAPSULE 600 MG PO (21:00)
[2021-09-18] MEDS: Prazosin HCL 5 MG CAPSULE 10 MG PO (21:02)
[2021-09-19] MEDS: Benztropine Mesylate 0.5 MG TABLET PO ×2 (08:27→21:33)
[2021-09-19] MEDS: Loratadine 10 MG TABLET PO (08:27)
[2021-09-19] MEDS: Fluticasone/Vilanterol 100/25 BLST.W.DEV 1 PUFF INHALE (08:27)
[2021-09-19] MEDS: Omeprazole 20 MG CAPSULE.DR PO (08:27)
[2021-09-19] MEDS: HaloperidoL 5 MG TABLET PO ×3 (08:27→21:33)
[2021-09-19] MEDS: Topiramate 25 MG TABLET PO ×2 (08:27→21:34)
[2021-09-19] MEDS: DULoxetine HCl 60 MG CAPSULE.DR PO (08:27)
[2021-09-19 08:40] VITALS: BP 128/78; PULSE 116; RESP 16; TEMP 36.7; O2SAT 98
[2021-09-19] MEDS: LORazepam 1 MG TABLET PO ×2 (10:52→18:41)
--- NOTE | 2021-09-19 12:37 | HO.PSYCHPN ---
Subjective Subjective Date of Service: 09/19/21 Reason For Visit: SI Interim History: pt appears as per yesterday. remains dramatically improved from . states she is attending groups and doing everything she needs to do. reports intermittent SIBI, but feels she is coping/managing it. c/o disrupted and agitated sleep, agrees to increase prazosin to 16 mg at bedtime. considering DC wednesday, informed if she remains safe over the weekend then that is something that could happen. per staff, anx 8, dep 9. feeling better. +SI, no plans or intent. joking, laughing with peers on eves. Mental Status Exam Mental Status Exam Narrative: appropriately dressed and groomed, many scars from cutting across forearms. no bandage on her forehead, vertical lac visible, closed. hand tremor noted. cooperative with interview. speech nml in rate. nml tone, nml latency, nml loudness and amount. thoughts linear, logical. affect flexible, appropriate to context, normo-intense, non-labile. reports realtively minor SI/SIBI. Diagnostics Vital Signs (24Hr): Vital Signs - 24 hr 09/18/21 18:00 09/19/21 08:40 Temperature 97.9 F 98.0 F Pulse Rate 98 116 H Respiratory Rate 16 16 Blood Pressure 120/72 128/78 Pulse Oximetry 98 98 BMI result Body Mass Index 48.4 Labs Results: 09/02/21 18:38 09/02/21 18:38 Medications Medications Current Medications Acetaminophen (Acetaminophen 325 Mg Tablet) 650 mg PO Q6H PRN PRN Reason: Pain (Scale Score 1-3) Last Admin: 09/12/21 21:44 Dose: 650 mg Documented by: Al Hydroxide/Mg Hydroxide (Magnesium Hydrox/Alum Hydrox 30 Ml Oral.Susp) 30 ml PO Q6H PRN PRN Reason: Heartburn/Nausea Albuterol Sulfate (Albuterol Sulfate 90 Mcg 8 Gm Inhaler) 2 puff INHALE Q4H PRN PRN Reason: Wheezing Last Admin: 09/05/21 22:02 Dose: 2 puff Documented by: Benztropine Mesylate (Benztropine Mesylate 0.5 Mg Tablet) 0.5 mg PO BID [facility] Last Admin: 09/19/21 08:27 Dose: 0.5 mg Documented by: Bisacodyl (Bisacodyl 5 Mg Tablet.Dr) 10 mg PO DAILY PRN PRN Reason: Constipation Heparin Sodium (Porcine) 50 (units/ Sodium Chloride 5 ml) 0 units IVFLUSH DAILY [facility] Last Admin: 09/19/21 10:08 Dose: Not Given Documented by: Docusate Sodium (Docusate Sodium 100 Mg Capsule) 100 mg PO BEDTIME PRN PRN Reason: Constipation Duloxetine HCl (Duloxetine Hcl 60 Mg Capsule.) 60 mg PO DAILY [facility] Last Admin: 09/19/21 08:27 Dose: 60 mg Documented by: Fluticasone/Vilanterol (Fluticasone/Vilanterol 100/25 Blst.W.Dev) 1 puff INHALE RDAILY [facility] Last Admin: 09/19/21 08:27 Dose: 1 puff Documented by: Haloperidol (Haloperidol 5 Mg Tablet) 5 mg PO Q4H PRN PRN Reason: Agitation Last Admin: 09/17/21 10:45 Dose: 5 mg Documented by: Haloperidol (Haloperidol 5 Mg Tablet) 5 mg PO TID [facility] Last Admin: 09/19/21 08:27 Dose: 5 mg Documented by: Haloperidol Decanoate (Haloperidol Decanoate 50 Mg/Ml Ampul) 75 mg IM Q28D@1300 [facility] Last Admin: 09/16/21 12:45 Dose: 75 mg Documented by: Hydroxyzine HCl (Hydroxyzine Hcl 50 Mg Tablet) 50 mg PO BID PRN PRN Reason: anxiety Last Admin: 09/17/21 10:45 Dose: 50 mg Documented by: Lactic Acid (Ammonium Lactate 12 % Cream 140 Gm Tube) 1 appl TOPICAL BID PRN; Protocol PRN Reason: Dry Skin Last Admin: 09/17/21 09:57 Dose: 1 appl Documented by: Gardner Carbonate (Gardner Carbonate 300 Mg Capsule) 600 mg PO BEDTIME [facility] Last Admin: 09/18/21 21:00 Dose: 600 mg Documented by: Loperamide HCl (Loperamide Hcl 2 Mg Capsule) 2 mg PO Q4H PRN PRN Reason: Diarrhea Last Admin: 09/18/21 11:35 Dose: 2 mg Documented by: Loratadine (Loratadine 10 Mg Tablet) 10 mg PO DAILY [facility] Last Admin: 09/19/21 08:27 Dose: 10 mg Documented by: Magnesium Hydroxide (Milk Of Magnesia 30 Ml Oral.Susp) 30 ml PO DAILY PRN PRN Reason: Constipation Nicotine Polacrilex (Nicotine Polacrilex 2 Mg Gum) 2 mg BUCCAL Q2H PRN PRN Reason: nicotine cravings Omeprazole (Omeprazole 20 Mg Capsule.Dr) 20 mg PO DAILY [facility] Last Admin: 09/19/21 08:27 Dose: 20 mg Documented by: Prazosin HCl (Prazosin Hcl 5 Mg Capsule) 10 mg PO BEDTIME [facility]; Protocol Last Admin: 09/18/21 21:02 Dose: 10 mg Documented by: Prazosin HCl (Prazosin Hcl 1 Mg Capsule) 6 mg PO BEDTIME [facility]; Protocol Senna (Sennosides 8.6 Mg Tablet) 17.2 mg PO BEDTIME [facility] Last Admin: 09/18/21 21:02 Dose: Not Given Documented by: Silver Sulfadiazine (Silver Sulfadiazine 1 % Cream 20 Gm Tube) 1 appl TOPICAL BID [facility] Last Admin: 09/19/21 10:08 Dose: Not Given Documented by: Sumatriptan Succinate (Sumatriptan Succinate 50 Mg Tablet) 50 mg PO DAILY PRN PRN Reason: Migraine Headache Last Admin: 09/11/21 08:45 Dose: 50 mg Documented by: Topiramate (Topiramate 25 Mg Tablet) 25 mg PO BID [facility] Last Admin: 09/19/21 08:27 Dose: 25 mg Documented by: Valacyclovir HCl (Valacycyclovir Hcl 500 Mg Tablet) 500 mg PO DAILY [facility] Last Admin: 09/19/21 08:27 Dose: 500 mg Documented by: Allergies Allergies Allergy/AdvReac Type Severity Reaction Status Date / Time carbamazepine [From TEGRETOL] AdvReac Unknown NAUSEA & Verified 06/01/21 20:14 VOMITING Assessment & Plan Assessment & Plan (1) Suicidal ideation: Status: Acute Code(s): R45.851 - Suicidal ideations Assessment and Plan: chronic, at baseline (2) Chronic post-traumatic stress disorder (PTSD): Status: Chronic Code(s): F43.12 - Post-traumatic stress disorder, chronic Assessment and Plan: everette Guzmand, prazosin being titrated up. (3) Lacerations of multiple sites of right arm: Status: Acute Code(s): S41.111A - Laceration without foreign body of right upper arm, initial encounter Assessment and Plan: healed (4) Borderline personality disorder: Status: Chronic Code(s): F60.3 - Borderline personality disorder Assessment and Plan: short stay if possible. Plan 1:1 for safety. continue most home medications; T/C medication holiday per conversation with avni aguero prescriber.. haldol 5 and ativan 1 PRNs for agitation. ECT begun friday 09/08. had 5 treatments, then Tx stopped after 09/17 due to destabilization of unclear etiology. Vanna of [facility] amenable to DC vraylar, supports medication holiday. vraylar taper completed as of 09/12. prazosin being titrated, increased to 10 mg QHS as of 09/13, 12 mg as of 09/15, 14 mg as of 09/16, 16 as of 09/19. haldol 5 TID decreased to 2 TID for 3 days, then DCed entirely. haldol decanoate decreased from 100 mg monthly to 75 mg monthly as of 09/16. next due 10/14. cogentin 0.5 mg BID added for tremor on 09/16. haldol 5 mg TID reinstated after decompensation in the 09/16 to 09/17 period. I spent minutes with the patient and/or on the patient floor today, greater than?50% of which was spent counseling/coordinating care. Reason for contiued inpatient stay Substantial Risk for: harm to self, inability to function and rapid decompensation
[2021-09-19 21:13] VITALS: BP 138/84; PULSE 79; TEMP 36.3; O2SAT 99
[2021-09-19] MEDS: Lithium Carbonate 300 MG CAPSULE 600 MG PO (21:33)
[2021-09-19] MEDS: hydrOXYzine HCL 50 MG TABLET PO (21:33)
[2021-09-19] MEDS: Prazosin HCL 1 MG CAPSULE PO (21:34)
[2021-09-19] MEDS: Prazosin HCL 5 MG CAPSULE 15 MG PO (21:34)
[2021-09-20] MEDS: Fluticasone/Vilanterol 100/25 BLST.W.DEV 1 PUFF INHALE (08:21)
[2021-09-20] MEDS: Benztropine Mesylate 0.5 MG TABLET PO ×2 (08:22→19:58)
[2021-09-20] MEDS: Albuterol Sulfate 90 MCG 8 GM INHALER 2 PUFF INHALE (08:22)
[2021-09-20] MEDS: Omeprazole 20 MG CAPSULE.DR PO (08:22)
[2021-09-20] MEDS: HaloperidoL 5 MG TABLET PO ×3 (08:23→19:58)
[2021-09-20] MEDS: DULoxetine HCl 60 MG CAPSULE.DR PO (08:23)
[2021-09-20] MEDS: Topiramate 25 MG TABLET PO ×2 (08:23→19:58)
[2021-09-20 08:45] VITALS: BP 119/81; PULSE 99; O2SAT 98
[2021-09-20] MEDS: Loratadine 10 MG TABLET PO (11:27)
[2021-09-20] MEDS: Acetaminophen 325 MG TABLET 650 MG PO (13:00)
--- NOTE | 2021-09-20 18:33 | P.PNPSI_ITS ---
Subjective Subjective Date of Service: 09/20/21 Reason For Visit: SI Subjective Notes: Conditional Voluntary Interim History: 09/19: pt appears as per yesterday. remains dramatically improved from . states she is attending groups and doing everything she needs to do. reports intermittent SIBI, but feels she is coping/managing it. c/o disrupted and agitated sleep, agrees to increase prazosin to 16 mg at bedtime. considering DC wednesday, informed if she remains safe over the weekend then that is something that could happen. per staff, anx 8, dep 9. feeling better. +SI, no plans or intent. joking, laughing with peers on ev. 09/20: Pleasant, on 1:1. Denies SI. Good benefit from meds/ECT. Hopes DC next week Medication Compliance: Yes Review of Systems Review of Systems No acute Yes all other systems are reviewed and are negative Mental Status Exam Mental Status Exam Narrative: appropriately dressed and groomed, many scars from cutting across forearms. no bandage on her forehead, vertical lac visible, closed. hand tremor noted. cooperative with interview. speech nml in rate. nml tone, nml latency, nml loudness and amount. thoughts linear, logical. affect flexible, appropriate to context, normo-intense, non-labile. reports realtively minor SI/SIBI. Patient Appearance: Well Grooomed Patient Orientation: Person, Place and Situation Level of Consciousness: Awake Patient Behavior: Appropriate and Cooperative Mood Description: Sad, Nervous and Apprehensive Affect Description: Constricted Patient Cognition Impaired: No Ability to Follow Directions: Good Speech Pattern: Clear Diagnostics Vital Signs (24Hr): Vital Signs - 24 hr 09/19/21 21:13 09/20/21 08:45 Temperature 97.4 F Pulse Rate 79 99 Blood Pressure 138/84 119/81 Pulse Oximetry 99 98 BMI result Verdana 4 Body Mass Index Verdana 4 48.4 Verdana 4 Verdana 4 Labs Results: 09/02/21 18:38 09/02/21 18:38 Medications Medications Current Medications Acetaminophen (Acetaminophen 325 Mg Tablet) 650 mg PO Q6H PRN PRN Reason: Pain (Scale Score 1-3) Last Admin: 09/20/21 13:00 Dose: 650 mg Documented by: Al Hydroxide/Mg Hydroxide (Magnesium Hydrox/Alum Hydrox 30 Ml Oral.Susp) 30 ml PO Q6H PRN PRN Reason: Heartburn/Nausea Albuterol Sulfate (Albuterol Sulfate 90 Mcg 8 Gm Inhaler) 2 puff INHALE Q4H PRN PRN Reason: Wheezing Last Admin: 09/20/21 08:22 Dose: 2 puff Documented by: Benztropine Mesylate (Benztropine Mesylate 0.5 Mg Tablet) 0.5 mg PO BID [facility] Last Admin: 09/20/21 08:22 Dose: 0.5 mg Documented by: Bisacodyl (Bisacodyl 5 Mg Tablet.Dr) 10 mg PO DAILY PRN PRN Reason: Constipation Heparin Sodium (Porcine) 50 (units/ Sodium Chloride 5 ml) 0 units IVFLUSH DAILY [facility] Last Admin: 09/20/21 11:27 Dose: Not Given Documented by: Docusate Sodium (Docusate Sodium 100 Mg Capsule) 100 mg PO BEDTIME PRN PRN Reason: Constipation Duloxetine HCl (Duloxetine Hcl 60 Mg Capsule.) 60 mg PO DAILY [facility] Last Admin: 09/20/21 08:23 Dose: 60 mg Documented by: Fluticasone/Vilanterol (Fluticasone/Vilanterol 100/25 Blst.W.Dev) 1 puff INHALE RDAILY [facility] Last Admin: 09/20/21 08:21 Dose: 1 puff Documented by: Haloperidol (Haloperidol 5 Mg Tablet) 5 mg PO Q4H PRN PRN Reason: Agitation Last Admin: 09/17/21 10:45 Dose: 5 mg Documented by: Haloperidol (Haloperidol 5 Mg Tablet) 5 mg PO TID [facility] Last Admin: 09/20/21 15:50 Dose: 5 mg Documented by: Haloperidol Decanoate (Haloperidol Decanoate 50 Mg/Ml Ampul) 75 mg IM Q28D@1300 [facility] Last Admin: 09/16/21 12:45 Dose: 75 mg Documented by: Hydroxyzine HCl (Hydroxyzine Hcl 50 Mg Tablet) 50 mg PO BID PRN PRN Reason: anxiety Last Admin: 09/19/21 21:33 Dose: 50 mg Documented by: Lactic Acid (Ammonium Lactate 12 % Cream 140 Gm Tube) 1 appl TOPICAL BID PRN; Protocol PRN Reason: Dry Skin Last Admin: 09/17/21 09:57 Dose: 1 appl Documented by: [place] Carbonate ([place] Carbonate 300 Mg Capsule) 600 mg PO BEDTIME [facility] Last Admin: 09/19/21 21:33 Dose: 600 mg Documented by: Loperamide HCl (Loperamide Hcl 2 Mg Capsule) 2 mg PO Q4H PRN PRN Reason: Diarrhea Last Admin: 09/18/21 11:35 Dose: 2 mg Documented by: Loratadine (Loratadine 10 Mg Tablet) 10 mg PO DAILY [facility] Last Admin: 09/20/21 11:27 Dose: 10 mg Documented by: Lorazepam (Lorazepam 1 Mg Tablet) 1 mg PO Q4H PRN PRN Reason: agitation Last Admin: 09/19/21 18:41 Dose: 1 mg Documented by: Magnesium Hydroxide (Milk Of Magnesia 30 Ml Oral.Susp) 30 ml PO DAILY PRN PRN Reason: Constipation Nicotine Polacrilex (Nicotine Polacrilex 2 Mg Gum) 2 mg BUCCAL Q2H PRN PRN Reason: nicotine cravings Omeprazole (Omeprazole 20 Mg Capsule.Dr) 20 mg PO DAILY [facility] Last Admin: 09/20/21 08:22 Dose: 20 mg Documented by: Prazosin HCl (Prazosin Hcl 5 Mg Capsule) 15 mg PO BEDTIME [facility]; Protocol Last Admin: 09/19/21 21:34 Dose: 15 mg Documented by: Prazosin HCl (Prazosin Hcl 1 Mg Capsule) 1 mg PO BEDTIME [facility]; Protocol Last Admin: 09/19/21 21:34 Dose: 1 mg Documented by: Senna (Sennosides 8.6 Mg Tablet) 17.2 mg PO BEDTIME [facility] Last Admin: 09/20/21 08:27 Dose: Not Given Documented by: Silver Sulfadiazine (Silver Sulfadiazine 1 % Cream 20 Gm Tube) 1 appl TOPICAL BID [facility] Last Admin: 09/20/21 11:27 Dose: Not Given Documented by: Sumatriptan Succinate (Sumatriptan Succinate 50 Mg Tablet) 50 mg PO DAILY PRN PRN Reason: Migraine Headache Last Admin: 09/11/21 08:45 Dose: 50 mg Documented by: Topiramate (Topiramate 25 Mg Tablet) 25 mg PO BID [facility] Last Admin: 09/20/21 08:23 Dose: 25 mg Documented by: Valacyclovir HCl (Valacycyclovir Hcl 500 Mg Tablet) 500 mg PO DAILY [facility] Last Admin: 09/20/21 08:22 Dose: 500 mg Documented by: Allergies Allergies Allergy/AdvReac Type Severity Reaction Status Date / Time carbamazepine [From AdvReac Unknown NAUSEA & Verified 06/01/21 20:14 TEGRETOL] VOMITING Assessment & Plan Assessment & Plan (1) Suicidal ideation: Status: Acute Code(s): R45.851 - Suicidal ideations Assessment and Plan: chronic, at baseline (2) Chronic post-traumatic stress disorder (PTSD): Status: Chronic Code(s): F43.12 - Post-traumatic stress disorder, chronic Assessment and Plan: vraylar DCed, prazosin being titrated up. (3) Lacerations of multiple sites of right arm: Status: Acute Code(s): S41.111A - Laceration without foreign body of right upper arm, initial encounter Assessment and Plan: healed (4) Borderline personality disorder: Status: Chronic Code(s): F60.3 - Borderline personality disorder Assessment and Plan: short stay if possible. Plan 1:1 for safety. continue most home medications; T/C medication holiday per conversation with avni aguero prescriber.. haldol 5 and ativan 1 PRNs for agitation. ECT begun friday 09/08. had 5 treatments, then Tx stopped after 09/17 due to destabilization of unclear etiology. Vanna of [facility] amenable to DC vraylar, supports medication holiday. vraylar taper completed as of 09/12. prazosin being titrated, increased to 10 mg QHS as of 09/13, 12 mg as of 09/15, 14 mg as of 09/16, 16 as of 09/19. haldol 5 TID decreased to 2 TID for 3 days, then DCed entirely. haldol decanoate decreased from 100 mg monthly to 75 mg monthly as of 09/16. next due 10/14. cogentin 0.5 mg BID added for tremor on 09/16. haldol 5 mg TID reinstated after decompensation in the 09/16 to 09/17 period. 09/20: Ct Rx plan as above I spent minutes with the patient and/or on the patient floor today, greater than?50% of which was spent counseling/coordinating care. Reason for contiued inpatient stay Substantial Risk for: harm to self and rapid decompensation
[2021-09-20 19:50] VITALS: BP 126/75; PULSE 90; RESP 18; TEMP 36.6; O2SAT 95
[2021-09-20] MEDS: Lithium Carbonate 300 MG CAPSULE 600 MG PO (19:58)
[2021-09-20] MEDS: Prazosin HCL 1 MG CAPSULE PO (19:58)
[2021-09-20] MEDS: Prazosin HCL 5 MG CAPSULE 15 MG PO (20:02)
[2021-09-20] MEDS: hydrOXYzine HCL 50 MG TABLET PO (21:31)
[2021-09-20] MEDS: LORazepam 1 MG TABLET PO (21:31)
--- NOTE | 2021-09-21 04:39 | P.PNPSI_ITS ---
Subjective Subjective Date of Service: 09/21/21 Reason For Visit: SI Interim History: 09/19: pt appears as per yesterday. remains dramatically improved from . states she is attending groups and doing everything she needs to do. reports intermittent SIBI, but feels she is coping/managing it. c/o disrupted and agitated sleep, agrees to increase prazosin to 16 mg at bedtime. considering DC wednesday, informed if she remains safe over the weekend then that is something that could happen. per staff, anx 8, dep 9. feeling better. +SI, no plans or intent. joking, laughing with peers on . 09/20: Pleasant, on 1:1. Denies SI. Good benefit from meds/ECT. Hopes DC next week 09/21: Pleasant. Polite responses. Denies SI. On 1:1 Medication Compliance: Yes Review of Systems Review of Systems No acute Yes all other systems are reviewed and are negative Mental Status Exam Mental Status Exam Narrative: appropriately dressed and groomed, many scars from cutting across forearms. no bandage on her forehead, vertical lac visible, closed. hand tremor noted. cooperative with interview. speech nml in rate. nml tone, nml latency, nml loudness and amount. thoughts linear, logical. affect flexible, appropriate to context, normo-intense, non-labile. reports realtively minor SI/SIBI. Patient Appearance: Well Grooomed Patient Orientation: Person, Place and Situation Level of Consciousness: Awake Patient Behavior: Appropriate and Cooperative Mood Description: Sad, Nervous and Apprehensive Affect Description: Constricted Patient Cognition Impaired: No Ability to Follow Directions: Good Speech Pattern: Clear Diagnostics Vital Signs (24Hr): Vital Signs - 24 hr 09/20/21 08:45 09/20/21 19:50 Temperature 98 F Pulse Rate 99 90 Respiratory Rate 18 Blood Pressure 119/81 126/75 Pulse Oximetry 98 95 BMI result Verdana 4 Body Mass Index Verdana 4 48.4 Verdana 4 Verdana 4 Labs Results: 09/02/21 18:38 09/02/21 18:38 Medications Medications Current Medications Acetaminophen (Acetaminophen 325 Mg Tablet) 650 mg PO Q6H PRN PRN Reason: Pain (Scale Score 1-3) Last Admin: 09/20/21 13:00 Dose: 650 mg Documented by: Al Hydroxide/Mg Hydroxide (Magnesium Hydrox/Alum Hydrox 30 Ml Oral.Susp) 30 ml PO Q6H PRN PRN Reason: Heartburn/Nausea Albuterol Sulfate (Albuterol Sulfate 90 Mcg 8 Gm Inhaler) 2 puff INHALE Q4H PRN PRN Reason: Wheezing Last Admin: 09/20/21 08:22 Dose: 2 puff Documented by: Benztropine Mesylate (Benztropine Mesylate 0.5 Mg Tablet) 0.5 mg PO BID [facility]PL[facility] BY [facility] Last Admin: 09/20/21 19:58 Dose: 0.5 mg Documented by: Bisacodyl (Bisacodyl 5 Mg Tablet.) 10 mg PO DAILY PRN PRN Reason: Constipation Heparin Sodium (Porcine) 50 (units/ Sodium Chloride 5 ml) 0 units IVFLUSH DAILY [facility]PLAC[facility] Last Admin: 09/20/21 11:27 Dose: Not Given Documented by: Docusate Sodium (Docusate Sodium 100 Mg Capsule) 100 mg PO BEDTIME PRN PRN Reason: Constipation Duloxetine HCl (Duloxetine Hcl 60 Mg Capsule.) 60 mg PO DAILY [facility] Last Admin: 09/20/21 08:23 Dose: 60 mg Documented by: Fluticasone/Vilanterol (Fluticasone/Vilanterol 100/25 Blst.W.Dev) 1 puff INHALE RDAILY [facility]PL[facility] Last Admin: 09/20/21 08:21 Dose: 1 puff Documented by: Haloperidol (Haloperidol 5 Mg Tablet) 5 mg PO Q4H PRN PRN Reason: Agitation Last Admin: 09/17/21 10:45 Dose: 5 mg Documented by: Haloperidol (Haloperidol 5 Mg Tablet) 5 mg PO TID [facility] Last Admin: 09/20/21 19:58 Dose: 5 mg Documented by: Haloperidol Decanoate (Haloperidol Decanoate 50 Mg/Ml Ampul) 75 mg IM Q28D@1300 [facility] Last Admin: 09/16/21 12:45 Dose: 75 mg Documented by: Hydroxyzine HCl (Hydroxyzine Hcl 50 Mg Tablet) 50 mg PO BID PRN PRN Reason: anxiety Last Admin: 09/20/21 21:31 Dose: 50 mg Documented by: Lactic Acid (Ammonium Lactate 12 % Cream 140 Gm Tube) 1 appl TOPICAL BID PRN; Protocol PRN Reason: Dry Skin Last Admin: 09/17/21 09:57 Dose: 1 appl Documented by: [place] Carbonate ([place] Carbonate 300 Mg Capsule) 600 mg PO BEDTIME [facility] Last Admin: 09/20/21 19:58 Dose: 600 mg Documented by: Loperamide HCl (Loperamide Hcl 2 Mg Capsule) 2 mg PO Q4H PRN PRN Reason: Diarrhea Last Admin: 09/18/21 11:35 Dose: 2 mg Documented by: Loratadine (Loratadine 10 Mg Tablet) 10 mg PO DAILY [facility]PL[facility] Last Admin: 09/20/21 11:27 Dose: 10 mg Documented by: Lorazepam (Lorazepam 1 Mg Tablet) 1 mg PO Q4H PRN PRN Reason: agitation Last Admin: 09/20/21 21:31 Dose: 1 mg Documented by: Magnesium Hydroxide (Milk Of Magnesia 30 Ml Oral.Susp) 30 ml PO DAILY PRN PRN Reason: Constipation Nicotine Polacrilex (Nicotine Polacrilex 2 Mg Gum) 2 mg BUCCAL Q2H PRN PRN Reason: nicotine cravings Omeprazole (Omeprazole 20 Mg Capsule.Dr) 20 mg PO DAILY [facility]PLAC[facility] BY [facility] Last Admin: 09/20/21 08:22 Dose: 20 mg Documented by: Prazosin HCl (Prazosin Hcl 5 Mg Capsule) 15 mg PO BEDTIME [facility]; Protocol Last Admin: 09/20/21 20:02 Dose: 15 mg Documented by: Prazosin HCl (Prazosin Hcl 1 Mg Capsule) 1 mg PO BEDTIME [facility]; Protocol Last Admin: 09/20/21 19:58 Dose: 1 mg Documented by: Senna (Sennosides 8.6 Mg Tablet) 17.2 mg PO BEDTIME [facility] Last Admin: 09/20/21 08:27 Dose: Not Given Documented by: Silver Sulfadiazine (Silver Sulfadiazine 1 % Cream 20 Gm Tube) 1 appl TOPICAL BID REPLACED BY [facility] Last Admin: 09/20/21 20:03 Dose: Not Given Documented by: Sumatriptan Succinate (Sumatriptan Succinate 50 Mg Tablet) 50 mg PO DAILY PRN PRN Reason: Migraine Headache Last Admin: 09/11/21 08:45 Dose: 50 mg Documented by: Topiramate (Topiramate 25 Mg Tablet) 25 mg PO BID REPLACED BY [facility] Last Admin: 09/20/21 19:58 Dose: 25 mg Documented by: Valacyclovir HCl (Valacycyclovir Hcl 500 Mg Tablet) 500 mg PO DAILY REPLACED BY [facility] Last Admin: 09/20/21 08:22 Dose: 500 mg Documented by: Allergies Allergies Allergy/AdvReac Type Severity Reaction Status Date / Time carbamazepine [From AdvReac Unknown NAUSEA & Verified 06/01/21 20:14 TEGRETOL] VOMITING Assessment & Plan Assessment & Plan (1) Suicidal ideation: Status: Acute Code(s): R45.851 - Suicidal ideations Assessment and Plan: chronic, at baseline (2) Chronic post-traumatic stress disorder (PTSD): Status: Chronic Code(s): F43.12 - Post-traumatic stress disorder, chronic Assessment and Plan: vraylar DCed, prazosin being titrated up. (3) Lacerations of multiple sites of right arm: Status: Acute Code(s): S41.111A - Laceration without foreign body of right upper arm, initial encounter Assessment and Plan: healed (4) Borderline personality disorder: Status: Chronic Code(s): F60.3 - Borderline personality disorder Assessment and Plan: short stay if possible. Plan 1:1 for safety. continue most home medications; T/C medication holiday per conversation with qamar agueropt prescriber.. haldol 5 and ativan 1 PRNs for agitation. ECT begun friday 09/08. had 5 treatments, then Tx stopped after 09/17 due to destabilization of unclear etiology. Vanna perdomo [facility] amenable to DC vraylar, supports medication holiday. vraylar taper completed as of 09/12. prazosin being titrated, increased to 10 mg QHS as of 09/13, 12 mg as of 09/15, 14 mg as of 09/16, 16 as of 09/19. haldol 5 TID decreased to 2 TID for 3 days, then DCed entirely. haldol decanoate decreased from 100 mg monthly to 75 mg monthly as of 09/16. next due 10/14. cogentin 0.5 mg BID added for tremor on 09/16. haldol 5 mg TID reinstated after decompensation in the 09/16 to 09/17 period. 09/20: Ct Rx plan as above 09/21: Ct Rx plan. M-ECT schedule pending I spent minutes with the patient and/or on the patient floor today, greater than?50% of which was spent counseling/coordinating care. Reason for contiued inpatient stay Substantial Risk for: harm to self and rapid decompensation
[2021-09-21] MEDS: Omeprazole 20 MG CAPSULE.DR PO (10:26)
[2021-09-21] MEDS: Benztropine Mesylate 0.5 MG TABLET PO ×2 (10:26→20:35)
[2021-09-21] MEDS: HaloperidoL 5 MG TABLET PO ×3 (10:26→20:35)
[2021-09-21] MEDS: DULoxetine HCl 60 MG CAPSULE.DR PO (10:26)
[2021-09-21] MEDS: Ammonium Lactate 12 % Cream 140 GM TUBE 1 APPL TOPICAL (10:26)
[2021-09-21] MEDS: Topiramate 25 MG TABLET PO ×2 (10:26→20:35)
[2021-09-21] MEDS: Loratadine 10 MG TABLET PO (10:26)
[2021-09-21] MEDS: Fluticasone/Vilanterol 100/25 BLST.W.DEV 1 PUFF INHALE (10:26)
[2021-09-21 10:30] VITALS: BP 88/52; PULSE 100; RESP 16; TEMP 36.6; O2SAT 98
[2021-09-21 18:00] VITALS: BP 126/74; PULSE 80; RESP 14; TEMP 36.6; O2SAT 98
[2021-09-21] MEDS: Prazosin HCL 5 MG CAPSULE 15 MG PO (20:33)
[2021-09-21] MEDS: Lithium Carbonate 300 MG CAPSULE 600 MG PO (20:33)
[2021-09-21] MEDS: hydrOXYzine HCL 50 MG TABLET PO (20:34)
[2021-09-21] MEDS: Prazosin HCL 1 MG CAPSULE PO (20:35)
[2021-09-21] MEDS: LORazepam 1 MG TABLET PO (20:36)
[2021-09-22 06:00] VITALS: PULSE 97; RESP 18; TEMP 36.3; O2SAT 99
[2021-09-22] MEDS: Fluticasone/Vilanterol 100/25 BLST.W.DEV 1 PUFF INHALE (08:04)
[2021-09-22] MEDS: Benztropine Mesylate 0.5 MG TABLET PO (08:05)
[2021-09-22] MEDS: HaloperidoL 5 MG TABLET PO (08:05)
[2021-09-22] MEDS: DULoxetine HCl 60 MG CAPSULE.DR PO (08:05)
[2021-09-22] MEDS: Topiramate 25 MG TABLET PO (08:05)
[2021-09-22] MEDS: Loratadine 10 MG TABLET PO (08:05)
[2021-09-22] MEDS: Omeprazole 20 MG CAPSULE.DR PO (08:05)
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
== END 2021-09-22 12:25 | disposition home or self-care (01) | DRG 752 ==
LOC: HO.ED 09-02 08:29 → HO.PADLT16 09-03 08:45
PROVIDERS: Family Medicine; Physician Assistant; Psychiatry & Neurology Psychiatry; Admitting Provider Psychiatry & Neurology Psychiatry; Emergency Provider Emergency Medicine; PCP Pediatrics; Visit Provider Psychiatry & Neurology Psychiatry
PROC: GZB4ZZZ Other Electroconvulsive Therapy (ICD-10-PCS; CPT 90870; principal; 2021-09-08 07:00)
PROC: (CPT 90870; principal; 2021-09-15 07:00)
DX: F60.3 Borderline personality disorder (principal); R45.851 Suicidal ideations; F43.12 Post-traumatic stress disorder, chronic; Z20.822 Contact with and (suspected) exposure to COVID-19; Z62.810 Personal history of physical and sexual abuse in childhood; Z78.1 Physical restraint status; Z91.52 Personal history of nonsuicidal self-harm; Z79.51 Long term (current) use of inhaled steroids; Z87.891 Personal history of nicotine dependence; Z79.899 Other long term (current) drug therapy
CPT/HCPCS: 36415; 80053; 80307; 81003; 81025; 85025; 87635; 90870; 93005; 96372; 99285; J0330; J1642; J1885; J2060; J2405

== ENCOUNTER 2021-09-30 11:38 | Emergency (ER) | payer OTHER, SELFPAY ==
[2021-09-30 11:48] VITALS: BP 137/92; PULSE 94; O2SAT 98
[2021-09-30 11:50] VITALS: BP 140/93; PULSE 84; RESP 18; TEMP 36.6; O2SAT 100; BMI 48.4
--- NOTE | 2021-09-30 11:57 | ED.PSYCH ---
HPI - Psych General Chief Complaint: Psychiatric Symptoms Stated Complaint: NOT FEELING WELL Time Seen by Provider: 09/30/21 11:56 Source: patient and old records reviewed Mode of arrival: EMS Limitations: no limitations History of Present Illness MD complaint: suicidal ideation, feels depressed and other (on Wednesday smoked something she thinks was laced ) Onset (ago): day(s) (4) Duration: constant History of same: Yes Relieving factors: none Exacerbating factors: none Context: recent drug abuse and significant life stressor Associated psychiatric symptoms: depression and suicidal ideation Associated symptoms: denies other symptoms Treatments prior to arrival: none If self harm: admits thoughts of self harm and has plan Related Data Home Medications Medication Instructions Recorded Confirmed omeprazole 20 mg capsule,delayed 20 mg PO DAILY 11/29/20 09/01/21 release cetirizine 10 mg tablet 10 mg PO DAILY 12/24/20 09/01/21 lorazepam 1 mg tablet 1 mg PO TID PRN 03/30/21 09/01/21 fluticasone 250 mcg-salmeterol 50 1 puff INHALATION BID 08/02/21 09/01/21 mcg/dose blistr powdr for inhalation (Advair Diskus) topiramate 25 mg tablet 1 tab PO BID 08/02/21 09/01/21 duloxetine 60 mg capsule,delayed 1 cap PO QAM 08/03/21 09/01/21 release lithium carbonate 300 mg tablet 2 tab PO BEDTIME 08/30/21 09/01/21 acetaminophen 500 mg tablet 500 mg PO Q6H PRN 09/01/21 09/01/21 albuterol sulfate 2.5 mg INHALATION Q4H PRN 09/01/21 09/01/21 albuterol sulfate 90 mcg/actuation 2 inh INHALATION Q4H PRN 09/01/21 09/01/21 breath activated powder inhaler (ProAir RespiClick) hydroxyzine pamoate 50 mg capsule 1 cap PO BID PRN 09/01/21 09/01/21 sumatriptan succinate 50 mg tablet 50 mg PO DAILY PRN 09/01/21 09/01/21 trazodone 50 mg tablet 100 mg PO BEDTIME PRN 09/01/21 09/01/21 Previous Rx's Medication Instructions Recorded nicotine (polacrilex) 2 mg gum 2 mg BUCCAL Q2H 30 Days #100 ea 08/11/21 (Nicorette) ammonium lactate 12 % topical cream 1 appl TOPICAL BID PRN 30 Days 09/22/21 #140 g benztropine 0.5 mg tablet 0.5 mg PO BID 30 Days #60 tab 09/22/21 haloperidol 5 mg tablet 5 mg PO TID 30 Days #90 tab 09/22/21 haloperidol decanoate 50 mg/mL 75 mg (1.5 mL) IM Q28D@1300 28 09/22/21 intramuscular solution Days #1.5 ml prazosin 1 mg capsule 1 mg PO BEDTIME 30 Days #30 cap 09/22/21 prazosin 5 mg capsule 15 mg PO BEDTIME 30 Days #90 cap 09/22/21 Allergies Allergy/AdvReac Type Severity Reaction Status Date / Time carbamazepine [From TEGRETOL] AdvReac Unknown NAUSEA & Verified 06/01/21 20:14 VOMITING cheese AdvReac Stomach Verified 09/30/21 13:25 Upset fish derived [fish] AdvReac Stomach Verified 09/30/21 12:34 Upset Review of Systems Review of Systems: Constitutional : No Fever, No Chills ENT/Mouth : No Ear Pain, No Nasal Congestion, No sore throat Eyes: No Eye Pain, No Swelling, No Redness Cardiovascular : No Chest Pain, No SOB Respiratory : No Cough, No Sputum, No Dyspnea Gastrointestinal : No Nausea, No Vomiting, No Diarrhea, No Hematochezia, No Melena Genitourinary : No Dysuria, No Urinary Frequency, No Hematuria Musculoskeletal : No Myalgias Skin : No Skin Lesions, No rash Neuro : No Weakness, No Numbness, No Paresthesias, No Dizziness, No Headache Psych : positive Anxiety, positive Depression, positive SI no HI Heme/Lymph: No Lymphadenopathy Endocrine : No Polyuria, No Polydipsia All other systems reviewed and are negative PMFSH Past Medical History Attestation statement: The following information was validated with the patient. Medical History Acute post-traumatic stress disorder Adjustment disorder Anxiety Asthma Borderline personality disorder Chronic post-traumatic stress disorder (PTSD) COPD (chronic obstructive pulmonary disease) Depression GERD (gastroesophageal reflux disease) Increased BMI Injury, self-inflicted Intentional self-harm PTSD (post-traumatic stress disorder) Recurrent major depression-severe Schizoaffective disorder Self-harming behavior Suicidal ideation Suicidal ideation Social History Social History Household Members: Other Household Members Other:: correction Housing: Apartment Housing Other:: residential home Do you presently have visiting nurse or other home services: No Alcohol intake: unknown Patient Tobacco Use Status: Former Tobacco user Quit Date: 02-19-21 Tobacco use type: Cigarette Cigarette Packs Per Day: 1 Cigarettes Per Day: 20.0 Years Smoked: 17 e-Cigarette/Vaping Use: Never Used Second Hand Smoke Exposure: Yes Substance Use Type: Marijuana and Opiates Advance Directives: No Advance Directives Information Provided: No service: No Sexual orientation: Did not discuss Physical Exam Vital Signs: Vital Signs: Last Vital Signs Temp 97.9 F 09/30/21 11:50 Pulse 84 09/30/21 11:50 Resp 18 09/30/21 11:50 BP 140/93 H 09/30/21 11:50 Pulse Ox 100 09/30/21 11:50 BMI result Body Mass Index 48.4 Appearance: Alert. Oriented X3. No acute distress. Appears depressed, withdrawn Eyes: Pupils equal, round and reactive to light. ENT: Pharynx normal. Neck: Normal inspection. Neck supple. CVS: Normal heart rate and rhythm. Pulses normal. Respiratory: No respiratory distress. Breath sounds normal. Abdomen: Soft and non-tender. Skin: Skin warm and dry. Normal skin color. Normal skin turgor. Extremities: No lower extremity edema. No calf ttp Neuro: Oriented X 3. No motor deficit. No sensory deficit. CN2-12 intact Course Course Course Narrative: Physician observation started at 152pm. Patient placed in physician observation because the patient needed more time for BHN assessment given SI complaint. She is medically cleared at this time. At the time observation was started the patient's vitals were stable, patient is alert and oriented but slightly anxious, Neuro: nonfocal, CV RRR, Lungs clear MDM - Psych MDM Narrative Medical decision making narrative: 36 yo female well known to us with mental health issues presents feeling worse after smoking THC with a friend thinks it was laced couldn't sleep for a whole night felt her heart was racing now wants to - at this time ?cocaine will obtain labs, WALTER, EKG, BHN consult, no CP/SOB. Lab Data Result diagrams: 09/30/21 12:17 09/30/21 12:17 Labs: Lab Results 09/30/21 09/30/21 09/30/21 Range/Units 12:17 12:17 12:29 WBC 7.2 (4.8-10.8) X10*3/uL RBC 4.30 (4.20-5.50) X10*6/uL Hgb 11.5 L (12.0-16.0) g/dl Hct 36.7 L (37.0-47.0) % MCV 85.3 (80.0-98.0) fL MCH 26.7 L (27.0-33.0) pg MCHC 31.3 (31.0-35.0) g/dl RDW 15.9 (11.0-16.0) % Plt Count 284 (160-400) X10*3/uL MPV 11.4 (9.4-12.3) fL Immature Gran % (Auto) 0.3 (0.0-0.4) % Neut % (Auto) 58.5 (45-73) % Lymph % (Auto) 33.5 (20-40) % [place] % (Auto) 6.1 (2-11) % Eos % (Auto) 1.3 (0-4) % Baso % (Auto) 0.3 (0-2) % Lymph # (Auto) 2.4 (1.2-4.9) X10*3/uL [place] # (Auto) 0.4 (0.1-1.2) X10*3/uL Eos # (Auto) 0.1 (0.0-0.4) X10*3/uL Baso # (Auto) 0.0 (0.0-0.2) X10*3/uL Abs Immat Gran (auto) 0.02 (0.00-0.03) X10*3/uL Absolute Neuts (auto) 4.2 (2.0-8.3) x10*3/uL Absolute Nucleated RBC 0.000 (0.0-0.012) X10*3/uL Nucleated RBC % (auto) 0.0 (0.0-0.2) /100WBC Urine Color YELLOW Urine Appearance HAZY Urine pH 6.5 (5.0-8.0) Ur Specific [place] 1.010 (1.005-1.025) Urine Protein NEG (NEG-TRACE) MG/DL Urine Glucose (UA) NEG (NEG) MG/DL Urine Ketones NEG (NEG) MG/DL Urine Blood NEG (NEG) Urine Nitrite NEG (NEG) Ur Leukocyte Esterase NEG (NEG) Urine Test (NEGATIVE) Urine Opiates Screen (Not Detect) Urine Fentanyl Screen (Not Detect) Ur Barbiturates Screen (Not Detect) Ur Phencyclidine Scrn (Not Detect) Ur Amphetamines Screen (Not Detect) U Benzodiazepines Scrn (Not Detect) Urine Cocaine Screen (Not Detect) U Marijuana (THC) Screen (Not Detect) COVID-19 (RAFAL) Negative (Negative) COVID-19 Clin Com See Note 09/30/21 09/30/21 Range/Units 12:29 12:29 WBC (4.8-10.8) X10*3/uL RBC (4.20-5.50) X10*6/uL Hgb (12.0-16.0) g/dl Hct (37.0-47.0) % MCV (80.0-98.0) fL MCH (27.0-33.0) pg MCHC (31.0-35.0) g/dl RDW (11.0-16.0) % Plt Count (160-400) X10*3/uL MPV (9.4-12.3) fL Immature Gran % (Auto) (0.0-0.4) % Neut % (Auto) (45-73) % Lymph % (Auto) (20-40) % [place] % (Auto) (2-11) % Eos % (Auto) (0-4) % Baso % (Auto) (0-2) % Lymph # (Auto) (1.2-4.9) X10*3/uL [place] # (Auto) (0.1-1.2) X10*3/uL Eos # (Auto) (0.0-0.4) X10*3/uL Baso # (Auto) (0.0-0.2) X10*3/uL Abs Immat Gran (auto) (0.00-0.03) X10*3/uL Absolute Neuts (auto) (2.0-8.3) x10*3/uL Absolute Nucleated RBC (0.0-0.012) X10*3/uL Nucleated RBC % (auto) (0.0-0.2) /100WBC Urine Color Urine Appearance Urine pH (5.0-8.0) Ur Specific [place] (1.005-1.025) Urine Protein (NEG-TRACE) MG/DL Urine Glucose (UA) (NEG) MG/DL Urine Ketones (NEG) MG/DL Urine Blood (NEG) Urine Nitrite (NEG) Ur Leukocyte Esterase (NEG) Urine Test NEGATIVE (NEGATIVE) Urine Opiates Screen Not Detected (Not Detect) Urine Fentanyl Screen POSITIVE H (Not Detect) Ur Barbiturates Screen Not Detected (Not Detect) Ur Phencyclidine Scrn Not Detected (Not Detect) Ur Amphetamines Screen Not Detected (Not Detect) U Benzodiazepines Scrn Not Detected (Not Detect) Urine Cocaine Screen Not Detected (Not Detect) U Marijuana (THC) Screen POSITIVE H (Not Detect) COVID-19 (RAFAL) (Negative) COVID-19 Clin Com ECG Data Attestation: I personally reviewed and interpreted this ECG as follows: ECG interpretation date: 09/30/21 ECG interpretation time: 12:30 Interpretation: Rate: 82 Rhythm: NSR [place]: normal Normal P waves. Normal ILDA. Normal QRS complex. ST T wave : normal no CARLOS qTC: normal prior studies: no acute ischemia The study has been interpreted contemporaneously by me. . Discharge Plan Discharge Clinical Impression: Suicidal ideation Patient Disposition: Still a Patient Prescriptions: No Action omeprazole 20 mg capsule,delayed release(DR/EC) 20 mg PO DAILY 0RF cetirizine 10 mg Tablet 10 mg PO DAILY 0RF lorazepam 1 mg tablet 1 mg PO TID PRN (Reason: Anxiety/Restlessness ) 0RF topiramate 25 mg tablet 1 tab PO BID 0RF fluticasone propion-salmeterol [Advair Diskus] 250-50 mcg/dose blister with device 1 puff inhalation BID 0RF duloxetine 60 mg capsule,delayed release(DR/EC) 1 cap PO QAM 0RF nicotine (polacrilex) [Nicorette] 2 mg gum 2 mg buccal Q2H 30 Days Qty: 100 0RF lithium carbonate 300 mg tablet 2 tab PO BEDTIME 0RF trazodone 50 mg tablet 100 mg PO BEDTIME PRN (Reason: Insomnia) 0RF hydroxyzine pamoate 50 mg capsule 1 cap PO BID PRN (Reason: anxiety) 0RF ProAir RespiClick 90 mcg/actuation aerosol powdr breath activated 2 inh inhalation Q4H PRN (Reason: Wheezing) 0RF sumatriptan succinate 50 mg Tablet 50 mg PO DAILY PRN (Reason: Migraine Headache) 0RF albuterol sulfate 2.5 mg /3 mL (0.083 %) Solution For Nebulization 2.5 mg INHALATION Q4H PRN (Reason: Shortness Of Breath) 0RF acetaminophen 500 mg Tablet 500 mg PO Q6H PRN (Reason: Pain (Scale Score 1-3)) 0RF benztropine 0.5 mg Tablet 0.5 mg PO BID 30 Days Qty: 60 0RF haloperidol 5 mg Tablet 5 mg PO TID 30 Days Qty: 90 0RF prazosin 1 mg Capsule 1 mg PO BEDTIME 30 Days Qty: 30 0RF Protocol: Hold for SBP< HOLD for SBP < : 90 prazosin 5 mg Capsule 15 mg PO BEDTIME 30 Days Qty: 90 0RF Protocol: Hold for SBP< HOLD for SBP < : 90 haloperidol decanoate 50 mg/mL Solution 75 mg IM Q28D@1300 28 Days Qty: 1.5 0RF ammonium lactate 12 % Cream 1 appl topical BID PRN (Reason: Dry Skin) 30 Days Qty: 140 0RF Protocol: Apply to: Apply to: bilateral feet
--- NOTE | 2021-09-30 12:04 | ECG_ITS ---
Test Reason : ?SUBSTANCE USE Blood Pressure : / mmHG Vent. Rate : 082 BPM Atrial Rate : 082 BPM P-R Int : 146 ms QRS Dur : 078 ms QT Int : 378 ms P-R-T Axes : 053 048 035 degrees QTc Int : 441 ms Normal sinus rhythm Normal ECG When compared with ECG of 02-SEP-2021 17:24, No significant change was found Referred By: Fauzia Gonzales Electronically Signed By:DONAL HAAS MD
[2021-09-30 12:23] LABS: MANUAL DIFF FLAG NO
[2021-09-30 12:31] LABS: Basophils Percent Auto 0.3 % (0-2); Eosinophils Absolute Auto 0.1 X10*3/uL (0.0-0.4); Eosinophils Percent Auto 1.3 % (0-4); Hematocrit 36.7 % (37.0-47.0); Hemoglobin 11.5 g/dl (12.0-16.0); Imm Gran Abs Auto 0.02 X10*3/uL (0.00-0.03); Imm Gran Pct Auto 0.3 % (0.0-0.4); Lymphocytes Absolute Auto 2.4 X10*3/uL (1.2-4.9); Lymphocytes Percent Auto 33.5 % (20-40); Mean Corpuscular HGB Conc 31.3 g/dl (31.0-35.0); Mean Corpuscular Hemoglobin 26.7 pg (27.0-33.0); Mean Corpuscular Volume 85.3 fL (80.0-98.0); Mean Platelet Volume 11.4 fL (9.4-12.3); Monocytes Absolute Auto 0.4 X10*3/uL (0.1-1.2); Monocytes Percent Auto 6.1 % (2-11); Neutrophils Absolute Auto 4.2 x10*3/uL (2.0-8.3); Neutrophils Percent Auto 58.5 % (45-73); Platelet Count 284 X10*3/uL (160-400); Red Cell Distribution Width 15.9 % (11.0-16.0); White Blood Count 7.2 X10*3/uL (4.8-10.8)
[2021-09-30] MEDS: HaloperidoL 5 MG TABLET PO (12:31)
[2021-09-30] MEDS: LORazepam 1 MG TABLET 2 MG PO (12:31)
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
[2021-09-30 12:38] LABS: COVID-19 Test Negative (Negative)
[2021-09-30 12:51] LABS: Appearance Urine HAZY; Color Urine YELLOW; Glucose Urine UA NEG (NEG); Leukocyte Esterase Urine NEG (NEG); Nitrite Urine NEG (NEG); PH 6.5 (5.0-8.0); Urine Blood NEG (NEG); Urine Ketones NEG (NEG); Urine Protein NEG (NEG-TRACE)
[2021-09-30 12:52] LABS: UPreg QC Valid YES; Urine Pregnancy NEGATIVE (NEGATIVE)
[2021-09-30 13:06] LABS: Amphetamine Screen Urine Not Detected (Not Detect); Barbiturates, Urine Not Detected (Not Detect); Benzodiazepines Screen Urine Not Detected (Not Detect); Cannabinoid Screen Urine POSITIVE (Not Detect); Cocaine Screen Urine Not Detected (Not Detect); Fentanyl, urine POSITIVE (Not Detect); Opiate Screen Urine Not Detected (Not Detect); Phencyclidine Screen Urine Not Detected (Not Detect)
[2021-09-30 14:12] LABS: Alanine Aminotransferase 14 U/L (0-31); Albumin Level 3.9 g/dL (3.5-5.0); Alkaline Phosphatase 74 U/L (39-117); Anion Gap 8 (12-20); Aspartate Amino Transferase 10 U/L (5-31); Bilirubin Direct < 0.2 mg/dL (0.0-0.5); Bilirubin Total 0.2 mg/dL (0.0-1.0); Blood Urea Nitrogen 5 mg/dL (9-16); Calcium 9.1 mg/dL (8.4-10.2); Carbon Dioxide 24 mmol/L (22-29); Chloride 112 mmol/L (96-108); Creatinine Clr Calc Pharmacy 116.3; Estimated Glomerular Filt Rate > 60; Glucose Random 83 mg/dL (60-115); Potassium 4.5 mmol/L (3.3-5.1); Sodium 139 mmol/L (135-145); Total Protein 6.2 g/dL (6.5-8.0)
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
[2021-09-30 15:21] VITALS: BP 111/72; PULSE 97; RESP 14; TEMP 36.4; O2SAT 100
--- NOTE | 2021-09-30 16:39 | MHC.CARE ---
Pt continues to deny SI/self harm ideation. She is calm and cooperative at present. CARE Team speaks with Louis Zelaya, residential real estate assistant, who does not have any significant concerns. Pt appears to be at baseline and will be discharged back to her retirement. Pt reports that she came to the ED today to get a tox screen, as she felt she smoked marijuana that was laced. Once in the ED pt endorsed SI and engaged in gesture, now reports she is feeling better. Plan is for staff to come and pick pt up and bring her back to [facility]. Plan is discussed with Dr. White, who agrees with this plan.
== END 2021-09-30 16:58 | disposition home or self-care (01) ==
PROVIDERS: Emergency Provider Emergency Medicine; PCP Pediatrics
DX: R45.851 Suicidal ideations (principal); Z20.822 Contact with and (suspected) exposure to COVID-19; F32.A Depression, unspecified; F41.9 Anxiety disorder, unspecified; F60.3 Borderline personality disorder; F43.10 Post-traumatic stress disorder, unspecified; F25.9 Schizoaffective disorder, unspecified; F12.90 Cannabis use, unspecified, uncomplicated; Z91.52 Personal history of nonsuicidal self-harm; Z79.899 Other long term (current) drug therapy
CPT/HCPCS: 80048; 80076; 80178; 80307; 81003; 81025; 85025; 87635; 93005; 99284; 99285

== ENCOUNTER 2021-10-02 18:44 | Inpatient (IN) | payer OTHER, SELFPAY ==
[2021-10-02] VITALS (10 sets, daily range): BP systolic 116–128; BP diastolic 75–88; PULSE 84–97; RESP 16–20; TEMP 36.4; O2SAT 96–98; BMI 43.4
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
[2021-10-02] MEDS: Haloperidol Lactate 5 MG/ML VIAL IM (19:25)
[2021-10-02] MEDS: LORazepam 2 MG/ML VIAL IM (19:25)
[2021-10-02 21:02] LABS: COVID-19 Test Negative (Negative)
[2021-10-02 21:56] LABS: Amphetamine Screen Urine Not Detected (Not Detect); Barbiturates, Urine Not Detected (Not Detect); Benzodiazepines Screen Urine Not Detected (Not Detect); Cannabinoid Screen Urine POSITIVE (Not Detect); Cocaine Screen Urine Not Detected (Not Detect); Fentanyl, urine POSITIVE (Not Detect); Opiate Screen Urine Not Detected (Not Detect); Phencyclidine Screen Urine Not Detected (Not Detect)
[2021-10-03 01:41] VITALS: BP 116/62; PULSE 72; RESP 18; TEMP 36.6; O2SAT 98
--- NOTE | 2021-10-03 06:13 | PC.NURSE ---
Patient slept through the night, 1:1 for safety checks, no distress observed/reported, behavior self harming at the time of arrival, medication complaint, med rec completed/pending provider's approval, N screened the patient overnight, patient cooperated well, disposition per [facility] is section 12 inpatient bed search, will continue to monitor.
[2021-10-03 07:24] VITALS: BP 120/66; PULSE 72; RESP 14; TEMP 36.8; O2SAT 94
--- NOTE | 2021-10-03 09:52 | PHA.MEDREC ---
Pharmacy Consult ? Medication Reconciliation Pharmacy has reviewed the medication reconciliation compeleted by Drew. Contact patient halfway facility [phone] to confirm medications. The following medications were added: Diphenhydramoine 50 mg 2 cap at bedtime, flonase daily, ferrous sulfate and mirtazepin. Advair was enter as Diskus 250/50 mcg however patient has HFA 230/21 mcg. Patient is on haldol PRN not scheduled. Also confirmed that Vraylar was discountined. Edie Solorio, PharmD
[2021-10-03 10:08] LABS: COVID-19 Test Negative (Negative)
[2021-10-03] MEDS: Omeprazole 20 MG CAPSULE.DR PO (10:20)
[2021-10-03] MEDS: Benztropine Mesylate 0.5 MG TABLET PO ×2 (10:21→21:42)
[2021-10-03] MEDS: Topiramate 25 MG TABLET PO ×2 (10:21→21:42)
[2021-10-03] MEDS: DULoxetine HCl 60 MG CAPSULE.DR PO (10:21)
[2021-10-03] MEDS: Loratadine 10 MG TABLET PO (10:21)
[2021-10-03] MEDS: LORazepam 1 MG TABLET PO (10:21)
[2021-10-03] MEDS: Ferrous Sulfate 324 MG TABLET.DR PO (10:49)
--- NOTE | 2021-10-03 10:55 | PC.NURSE ---
pt was hitting her head against the wall, redirected and prn ativan given with her morning meds, now sleeping w nolvia, sitter 1-1 at bedside
--- NOTE | 2021-10-03 13:33 | PC.NURSE ---
Nurse to Nurse given to m3 staff foresterNINA Pizarro pt will be admitted to m3 room 322-1
[2021-10-03 13:40] VITALS: BP 145/77; PULSE 102; TEMP 36.6; O2SAT 98
--- NOTE | 2021-10-03 16:21 | PC.NURSE ---
Patient is alert and oriented x 4 lung sounds are clear verbalized understanding of transfer to m3. escorted to m3 via wheelchair with belongings and security and m3 staff
[2021-10-03 16:27] VITALS: BP 122/77; PULSE 93; RESP 16; TEMP 36.3; O2SAT 99
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
[2021-10-03] MEDS: Haloperidol Lactate 5 MG/ML VIAL IM (17:29)
[2021-10-03] MEDS: LORazepam 2 MG/ML VIAL 1 MG IM (17:30)
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
[2021-10-03] MEDS: Fluconazole 150 MG TABLET PO (17:59)
[2021-10-03 21:35] VITALS: BP 118/80; PULSE 92; TEMP 36.5; O2SAT 97
[2021-10-03] MEDS: diphenhydrAMINE HCL 25 MG TABLET 100 MG PO (21:41)
[2021-10-03] MEDS: Lithium Carbonate 300 MG CAPSULE 600 MG PO (21:41)
[2021-10-03] MEDS: Prazosin HCL 1 MG CAPSULE PO (21:41)
[2021-10-03] MEDS: Prazosin HCL 5 MG CAPSULE 15 MG PO (21:41)
[2021-10-03] MEDS: Mirtazapine 7.5 MG TABLET PO (21:41)
[2021-10-03] MEDS: HaloperidoL 5 MG TABLET PO (21:42)
[2021-10-03] MEDS: hydrOXYzine HCL 50 MG TABLET PO (21:42)
[2021-10-03] MEDS: traZODone HCL 100 MG TABLET PO (21:42)
[2021-10-04] MEDS: HaloperidoL 5 MG TABLET PO ×3 (03:24→18:40)
[2021-10-04] MEDS: Ferrous Sulfate 324 MG TABLET.DR PO (08:55)
[2021-10-04] MEDS: Omeprazole 20 MG CAPSULE.DR PO (08:55)
[2021-10-04] MEDS: Topiramate 25 MG TABLET PO ×2 (08:55→20:37)
[2021-10-04] MEDS: Benztropine Mesylate 0.5 MG TABLET PO ×2 (08:56→20:36)
[2021-10-04] MEDS: DULoxetine HCl 60 MG CAPSULE.DR PO (08:56)
[2021-10-04] MEDS: Fluticasone/Vilanterol 200/25 BLST.W.DEV 1 PUFF INHALE (08:58)
[2021-10-04 09:06] VITALS: BP 137/97; PULSE 108; RESP 18; TEMP 36.6; O2SAT 97
[2021-10-04 09:47] LABS: Estimated Average Glucose 105 mg/dL; Hemoglobin A1c % 5.3 %
[2021-10-04 09:52] LABS: Cholesterol 178 mg/dL; HDL Cholesterol 43 mg/dL; LDL Cholesterol Calculated 109 mg/dl; Triglycerides 134 mg/dL
[2021-10-04 10:16] LABS: Thyroid Stimulating Hormone 1.74 uIU/mL (0.32-4.0)
[2021-10-04] MEDS: LORazepam 1 MG TABLET PO ×3 (11:00→23:35)
[2021-10-04] MEDS: hydrOXYzine HCL 50 MG TABLET PO (11:31)
[2021-10-04] MEDS: Haloperidol Lactate 5 MG/ML VIAL IM ×2 (11:42→20:25)
[2021-10-04] MEDS: LORazepam 2 MG/ML VIAL 1 MG IM ×2 (11:46→20:25)
--- NOTE | 2021-10-04 11:46 | PC.NURSE ---
Patient w/ 1:1, given PO PRN Haldol, Ativan for increasing anxiety, agitation, patient pulling hair. Patient encouraged to listen to music, reviewed coping skills. A few minutes later, patient resumed self harm banging her head against wall. Staff able to de-escalate, Dr. Jesus notified patient requesting haldol/Ativan IM. Pgiven given Haldol/Ativan IM as ordered and as requested by patient.
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
[2021-10-04 20:35] VITALS: BP 118/76; PULSE 100; TEMP 36.3; O2SAT 96
[2021-10-04] MEDS: diphenhydrAMINE HCL 25 MG TABLET 100 MG PO (20:36)
[2021-10-04] MEDS: Lithium Carbonate 300 MG CAPSULE 600 MG PO (20:37)
[2021-10-04] MEDS: Prazosin HCL 1 MG CAPSULE 3 MG PO (20:37)
[2021-10-04] MEDS: Mirtazapine 7.5 MG TABLET PO (20:37)
[2021-10-04] MEDS: traZODone HCL 100 MG TABLET PO (20:37)
[2021-10-04] MEDS: Prazosin HCL 5 MG CAPSULE 15 MG PO (20:37)
[2021-10-05] MEDS: Fluticasone Propionate Nasal 16 GM SPRAY 2 SPRAY NOSTRIL-B (08:19)
[2021-10-05] MEDS: Fluticasone/Vilanterol 200/25 BLST.W.DEV 1 PUFF INHALE (08:19)
[2021-10-05] MEDS: Ferrous Sulfate 324 MG TABLET.DR PO (08:20)
[2021-10-05] MEDS: HaloperidoL 5 MG TABLET PO ×2 (08:23→18:56)
[2021-10-05] MEDS: LORazepam 1 MG TABLET PO ×2 (08:23→18:56)
[2021-10-05 08:30] VITALS: BP 123/83; PULSE 101; RESP 16; TEMP 36.8; O2SAT 98
[2021-10-05] MEDS: Omeprazole 20 MG CAPSULE.DR PO (08:34)
[2021-10-05] MEDS: DULoxetine HCl 60 MG CAPSULE.DR PO (08:35)
[2021-10-05] MEDS: Benztropine Mesylate 0.5 MG TABLET PO ×2 (08:35→20:25)
[2021-10-05] MEDS: Topiramate 25 MG TABLET PO ×2 (08:36→20:24)
[2021-10-05] MEDS: LORazepam 2 MG/ML VIAL 1 MG IM ×2 (10:59→22:32)
[2021-10-05] MEDS: Haloperidol Lactate 5 MG/ML VIAL IM ×2 (11:00→22:32)
--- NOTE | 2021-10-05 15:27 | HO.PSYCHPN ---
Subjective Subjective Date of Service: 10/05/21 Reason For Visit: SI Interim History: pt continues to request IM haldol and ativan after receiving PO, which is ineffective for her. did so again this morning. seen after in her room, lying in bed with sitter at bedside. calm. states she is trying to refrain from harming herself. not sure if she should be here or leave. MD reinforces need for stability and safety and her being in the right place for those things. she accepts rationale for now. per staff, got PO and IM meds last gabriel as well as this morning for self-harm behaviors. agitated this morning c/o nightmares and flashbacks. Mental Status Exam Mental Status Exam Narrative: appropriately dressed and groomed, many scars from cutting across forearms. no bandage on her forehead, vertical lac visible, reopened. cooperative with interview. speech nml in rate, tone, latency, loudness, and amount. thoughts linear, logical. affect constricted, appropriate to context, hyper-intense, non-labile. +SIBI. no HI/AVH expressed. Diagnostics Vital Signs (24Hr): Vital Signs - 24 hr 10/04/21 20:35 10/05/21 08:30 Temperature 97.3 F 98.2 F Pulse Rate 100 101 H Respiratory Rate 16 Blood Pressure 118/76 123/83 Pulse Oximetry 96 98 BMI result Body Mass Index 43.4 Labs Labs: Laboratory Results - last 48 hr 10/04/21 10/04/21 08:33 08:33 Estimat Average Glucose 105 Hemoglobin A1c % 5.3 Triglycerides 134 Cholesterol 178 LDL Cholesterol, Calc 109 HDL Cholesterol 43 TSH 1.74 Medications Medications Current Medications Acetaminophen (Acetaminophen 325 Mg Tablet) 650 mg PO Q6H PRN PRN Reason: Headache/Pain Mild Scale (1-3) Al Hydroxide/Mg Hydroxide (Magnesium Hydrox/Alum Hydrox 30 Ml Oral.Susp) 30 ml PO Q6H PRN PRN Reason: Heartburn/Nausea Albuterol Sulfate (Albuterol Sulfate (0.083%) 2.5 Mg/3 Ml Vial.Neb) 2.5 mg INHALE Q4H PRN PRN Reason: Shortness Of Breath Albuterol Sulfate (Albuterol Sulfate 90 Mcg 8 Gm Inhaler) 2 puff INHALE Q4H PRN PRN Reason: Wheezing Benztropine Mesylate (Benztropine Mesylate 0.5 Mg Tablet) 0.5 mg PO BID [facility] Last Admin: 10/05/21 08:35 Dose: 0.5 mg Documented by: Diphenhydramine HCl (Diphenhydramine Hcl 25 Mg Tablet) 100 mg PO BEDTIME [facility] Last Admin: 10/04/21 20:36 Dose: 100 mg Documented by: Duloxetine HCl (Duloxetine Hcl 60 Mg Capsule.) 60 mg PO DAILY [facility] Last Admin: 10/05/21 08:35 Dose: 60 mg Documented by: Ferrous Sulfate (Ferrous Sulfate 324 Mg Tablet.) 324 mg PO DAILY [facility] Last Admin: 10/05/21 08:20 Dose: 324 mg Documented by: Fluticasone Propionate (Fluticasone Propionate Nasal 16 Gm [place]) 2 spray NOSTRIL-B DAILY [facility] Last Admin: 10/05/21 08:19 Dose: 2 spray Documented by: Fluticasone/Vilanterol (Fluticasone/Vilanterol 200/25 Blst.W.Dev) 1 puff INHALE RDAILY [facility] Last Admin: 10/05/21 08:19 Dose: 1 puff Documented by: Haloperidol (Haloperidol 5 Mg Tablet) 5 mg PO TID PRN PRN Reason: ANXIETY, AGITATION Last Admin: 10/05/21 08:23 Dose: 5 mg Documented by: Haloperidol Decanoate (Haloperidol Decanoate 50 Mg/Ml Ampul) 75 mg IM Q28D@1300 [facility] Hydroxyzine HCl (Hydroxyzine Hcl 50 Mg Tablet) 50 mg PO BID PRN PRN Reason: anxiety Last Admin: 10/04/21 11:31 Dose: 50 mg Documented by: Lactic Acid (Ammonium Lactate 12 % Cream 140 Gm Tube) 1 appl TOPICAL BID PRN; Protocol PRN Reason: Dry Skin [place] Carbonate ([place] Carbonate 300 Mg Capsule) 600 mg PO BEDTIME [facility] Last Admin: 10/04/21 20:37 Dose: 600 mg Documented by: Lorazepam (Lorazepam 1 Mg Tablet) 1 mg PO TID PRN PRN Reason: Anxiety/Restlessness Last Admin: 10/05/21 08:23 Dose: 1 mg Documented by: Magnesium Hydroxide (Milk Of Magnesia 30 Ml Oral.Susp) 30 ml PO DAILY PRN PRN Reason: Constipation Mirtazapine (Mirtazapine 7.5 Mg Tablet) 7.5 mg PO BEDTIME [facility] Last Admin: 10/04/21 20:37 Dose: 7.5 mg Documented by: Nicotine Polacrilex (Nicotine Polacrilex 2 Mg Gum) 2 mg BUCCAL Q2H PRN PRN Reason: Nicotine Cravings Omeprazole (Omeprazole 20 Mg Capsule.Dr) 20 mg PO DAILY@0630 [facility] Last Admin: 10/05/21 08:34 Dose: 20 mg Documented by: Prazosin HCl (Prazosin Hcl 5 Mg Capsule) 15 mg PO BEDTIME [facility]; Protocol Last Admin: 10/04/21 20:37 Dose: 15 mg Documented by: Prazosin HCl (Prazosin Hcl 1 Mg Capsule) 3 mg PO BEDTIME [facility]; Protocol Last Admin: 10/04/21 20:37 Dose: 3 mg Documented by: Sumatriptan Succinate (Sumatriptan Succinate 50 Mg Tablet) 50 mg PO DAILY PRN PRN Reason: Migraine Headache Topiramate (Topiramate 25 Mg Tablet) 25 mg PO BID [facility] Last Admin: 10/05/21 08:36 Dose: 25 mg Documented by: Trazodone HCl (Trazodone Hcl 100 Mg Tablet) 100 mg PO BEDTIME [facility] Last Admin: 10/04/21 20:37 Dose: 100 mg Documented by: Trazodone HCl (Trazodone Hcl 50 Mg Tablet) 50 mg PO BEDTIME PRN PRN Reason: Insomnia Allergies Allergies Allergy/AdvReac Type Severity Reaction Status Date / Time carbamazepine [From TEGRETOL] AdvReac Unknown NAUSEA & Verified 06/01/21 20:14 VOMITING cheese AdvReac Stomach Verified 09/30/21 13:25 Upset fish derived [fish] AdvReac Stomach Verified 09/30/21 12:34 Upset Assessment & Plan Assessment & Plan (1) Schizoaffective disorder, depressive type: Status: Chronic Code(s): F25.1 - Schizoaffective disorder, depressive type (2) Chronic post-traumatic stress disorder (PTSD): Status: Chronic Code(s): F43.12 - Post-traumatic stress disorder, chronic (3) Borderline personality disorder: Status: Chronic Code(s): F60.3 - Borderline personality disorder Plan Ms. Capps is a 36 year-old woman with hx of BPD, PTSD, schizoaffective disorder, well known to this unit and M5 through previous admission with similar presentation. Pt last discharged from M3 on 09/22 after treatment of SI (chronic), SIB. Had 5 ECT tx but worsened in terms of dysregulation and increase SIB/SI, therefore it was stopped. Vraylar discontinued, other medications continued including lithium and haldol. We discussed risks, benefits and alternative treatment, will continue current medications. PLAN 1. Admit to , 1:1 due to self injurious behaviors on unit. 2. Continue medications- lithium, haldol (oral and decanoate) 3. Obtain collateral information 4. Aftercare planning 5- pt reports s/s of vaginal yeast infect- will tx. 10/04: prazosin 16 mg QHS increased to 18 mg QHS for nightmares in PTSD. pt requested and received IM haldol and ativan x2 in the past 24H. 10/05: no change in mgmt. got haldol and ativan IM x2 in past 24H, per her request. I spent minutes with the patient and/or on the patient floor today, greater than?50% of which was spent counseling/coordinating care. Reason for contiued inpatient stay Substantial Risk for: harm to self, inability to function and rapid decompensation
[2021-10-05 18:00] VITALS: BP 132/76; PULSE 98; RESP 22; TEMP 36.6; O2SAT 98
[2021-10-05] MEDS: diphenhydrAMINE HCL 25 MG TABLET 100 MG PO (20:20)
[2021-10-05] MEDS: Mirtazapine 7.5 MG TABLET PO (20:21)
[2021-10-05] MEDS: Lithium Carbonate 300 MG CAPSULE 600 MG PO (20:22)
[2021-10-05] MEDS: traZODone HCL 100 MG TABLET PO (20:24)
[2021-10-05] MEDS: Prazosin HCL 1 MG CAPSULE 3 MG PO (20:25)
[2021-10-05] MEDS: Prazosin HCL 5 MG CAPSULE 15 MG PO (20:30)
--- NOTE | 2021-10-05 22:50 | PC.NURSE ---
Pt. requests to speak to nurse. Pt reports increasing agitation keeping her from sleep. Pt requests IM medication to address strong voices commanding self-harm. Pt refuses PO PRNs, stating that they don't work. When reviewing non-medicinal coping strategies, pt reports having exhausted all available options. Contacted on-call physician, Ronine eJsus. Haldol 5mg/Ativan 1mg IM ordered x1. Injection to left deltoid. Pt cooperative. Twenty minutes post-injection pt appeared to be sleeping with no signs of discomfort or distress.
[2021-10-06 09:57] LABS: Folate 5.8 ng/mL (> or = 4.0); Vitamin B12 248 pg/mL (200-900)
[2021-10-06] MEDS: Fluticasone/Vilanterol 200/25 BLST.W.DEV 1 PUFF INHALE (10:20)
[2021-10-06] MEDS: Fluticasone Propionate Nasal 16 GM SPRAY 2 SPRAY NOSTRIL-B (10:20)
[2021-10-06] MEDS: Benztropine Mesylate 0.5 MG TABLET PO ×2 (10:21→21:32)
[2021-10-06] MEDS: Ferrous Sulfate 324 MG TABLET.DR PO (10:21)
[2021-10-06] MEDS: DULoxetine HCl 60 MG CAPSULE.DR PO (10:21)
[2021-10-06] MEDS: Omeprazole 20 MG CAPSULE.DR PO (10:21)
[2021-10-06] MEDS: Topiramate 25 MG TABLET PO ×2 (10:21→21:32)
[2021-10-06 12:22] VITALS: BP 137/78; PULSE 102; RESP 16; TEMP 36.6; O2SAT 96
[2021-10-06 18:00] VITALS: BP 111/72; PULSE 85; RESP 18; TEMP 36.8; O2SAT 99
[2021-10-06] MEDS: traZODone HCL 100 MG TABLET PO (21:30)
[2021-10-06] MEDS: Lithium Carbonate 300 MG CAPSULE 600 MG PO (21:30)
[2021-10-06] MEDS: diphenhydrAMINE HCL 25 MG TABLET 100 MG PO (21:31)
[2021-10-06] MEDS: Prazosin HCL 5 MG CAPSULE 20 MG PO (21:32)
[2021-10-06] MEDS: LORazepam 1 MG TABLET PO (21:33)
[2021-10-06] MEDS: Mirtazapine 7.5 MG TABLET PO (21:33)
--- NOTE | 2021-10-06 21:47 | P.PNPSI_ITS ---
Subjective Subjective Date of Service: 10/06/21 Reason For Visit: SI Interim History: pt states she would like to go home by wednesday so she can attend appointment with new therapist which is scheduled for wednesday. states her most recent IM was last night. she states her anxiety is worse at night. her most recent nightmares were 2 nights ago. that said, sleep disturbance continues and she is amenable to increase prazosin to 20 mg at bedtime as of tonight. per staff, increased agitation last NOC and poor sleep. had IM for CAH to harm self last NOC, slept after. Mental Status Exam Mental Status Exam Narrative: appropriately dressed and groomed, many scars from cutting across forearms. no bandage on her forehead, vertical lac visible, reopened. cooperative with interview. speech nml in rate, tone, latency, loudness, and amount. thoughts linear, logical. affect constricted, appropriate to context, normo-intense, non-labile. no SI/SIBI/HI/AVH expressed. Diagnostics Vital Signs (24Hr): Vital Signs - 24 hr 10/06/21 12:22 Temperature 97.8 F Pulse Rate 102 H Respiratory Rate 16 Blood Pressure 137/78 Pulse Oximetry 96 BMI result Body Mass Index 43.4 Labs Labs: Laboratory Results - last 48 hr 10/04/21 08:33 Vitamin B12 248 Folate 5.8 Medications Medications Current Medications Acetaminophen (Acetaminophen 325 Mg Tablet) 650 mg PO Q6H PRN PRN Reason: Headache/Pain Mild Scale (1-3) Al Hydroxide/Mg Hydroxide (Magnesium Hydrox/Alum Hydrox 30 Ml Oral.Susp) 30 ml PO Q6H PRN PRN Reason: Heartburn/Nausea Albuterol Sulfate (Albuterol Sulfate (0.083%) 2.5 Mg/3 Ml Vial.Neb) 2.5 mg INHALE Q4H PRN PRN Reason: Shortness Of Breath Albuterol Sulfate (Albuterol Sulfate 90 Mcg 8 Gm Inhaler) 2 puff INHALE Q4H PRN PRN Reason: Wheezing Benztropine Mesylate (Benztropine Mesylate 0.5 Mg Tablet) 0.5 mg PO BID [facility] Last Admin: 10/06/21 21:32 Dose: 0.5 mg Documented by: Diphenhydramine HCl (Diphenhydramine Hcl 25 Mg Tablet) 100 mg PO BEDTIME [facility] Last Admin: 10/06/21 21:31 Dose: 100 mg Documented by: Duloxetine HCl (Duloxetine Hcl 60 Mg Capsule.) 60 mg PO DAILY [facility] Last Admin: 10/06/21 10:21 Dose: 60 mg Documented by: Ferrous Sulfate (Ferrous Sulfate 324 Mg Tablet.) 324 mg PO DAILY [facility] Last Admin: 10/06/21 10:21 Dose: 324 mg Documented by: Fluticasone Propionate (Fluticasone Propionate Nasal 16 Gm [place]) 2 spray NOSTRIL-B DAILY [facility] Last Admin: 10/06/21 10:20 Dose: 2 spray Documented by: Fluticasone/Vilanterol (Fluticasone/Vilanterol 200/25 Blst.W.Dev) 1 puff INHALE RDAILY [facility] Last Admin: 10/06/21 10:20 Dose: 1 puff Documented by: Haloperidol (Haloperidol 5 Mg Tablet) 5 mg PO TID PRN PRN Reason: ANXIETY, AGITATION Last Admin: 10/05/21 18:56 Dose: 5 mg Documented by: Haloperidol Decanoate (Haloperidol Decanoate 50 Mg/Ml Ampul) 75 mg IM Q28D@1300 [facility] Hydroxyzine HCl (Hydroxyzine Hcl 50 Mg Tablet) 50 mg PO BID PRN PRN Reason: anxiety Last Admin: 10/04/21 11:31 Dose: 50 mg Documented by: Lactic Acid (Ammonium Lactate 12 % Cream 140 Gm Tube) 1 appl TOPICAL BID PRN; Protocol PRN Reason: Dry Skin [place] Carbonate ([place] Carbonate 300 Mg Capsule) 600 mg PO BEDTIME [facility] Last Admin: 10/06/21 21:30 Dose: 600 mg Documented by: Lorazepam (Lorazepam 1 Mg Tablet) 1 mg PO TID PRN PRN Reason: Anxiety/Restlessness Last Admin: 10/06/21 21:33 Dose: 1 mg Documented by: Magnesium Hydroxide (Milk Of Magnesia 30 Ml Oral.Susp) 30 ml PO DAILY PRN PRN Reason: Constipation Mirtazapine (Mirtazapine 7.5 Mg Tablet) 7.5 mg PO BEDTIME [facility] Last Admin: 10/06/21 21:33 Dose: 7.5 mg Documented by: Nicotine Polacrilex (Nicotine Polacrilex 2 Mg Gum) 2 mg BUCCAL Q2H PRN PRN Reason: Nicotine Cravings Omeprazole (Omeprazole 20 Mg Capsule.) 20 mg PO DAILY@0630 [facility] Last Admin: 10/06/21 10:21 Dose: 20 mg Documented by: Prazosin HCl (Prazosin Hcl 5 Mg Capsule) 20 mg PO BEDTIME [facility]; Protocol Last Admin: 10/06/21 21:32 Dose: 20 mg Documented by: Sumatriptan Succinate (Sumatriptan Succinate 50 Mg Tablet) 50 mg PO DAILY PRN PRN Reason: Migraine Headache Topiramate (Topiramate 25 Mg Tablet) 25 mg PO BID [facility] Last Admin: 10/06/21 21:32 Dose: 25 mg Documented by: Trazodone HCl (Trazodone Hcl 100 Mg Tablet) 100 mg PO BEDTIME [facility] Last Admin: 10/06/21 21:30 Dose: 100 mg Documented by: Trazodone HCl (Trazodone Hcl 50 Mg Tablet) 50 mg PO BEDTIME PRN PRN Reason: Insomnia Allergies Allergies Allergy/AdvReac Type Severity Reaction Status Date / Time carbamazepine [From TEGRETOL] AdvReac Unknown NAUSEA & Verified 06/01/21 20:14 VOMITING cheese AdvReac Stomach Verified 09/30/21 13:25 Upset fish derived [fish] AdvReac Stomach Verified 09/30/21 12:34 Upset Assessment & Plan Assessment & Plan (1) Schizoaffective disorder, depressive type: Status: Chronic Code(s): F25.1 - Schizoaffective disorder, depressive type (2) Chronic post-traumatic stress disorder (PTSD): Status: Chronic Code(s): F43.12 - Post-traumatic stress disorder, chronic (3) Borderline personality disorder: Status: Chronic Code(s): F60.3 - Borderline personality disorder Plan Ms. Capps is a 36 year-old woman with hx of BPD, PTSD, schizoaffective disorder, well known to this unit and M5 through previous admission with similar presentation. Pt last discharged from on 09/22 after treatment of SI (chronic), SIB. Had 5 ECT tx but worsened in terms of dysregulation and increase SIB/SI, therefore it was stopped. Vraylar discontinued, other medications continued including lithium and haldol. We discussed risks, benefits and alternative treatment, will continue current medications. PLAN 1. Admit to , 1:1 due to self injurious behaviors on unit. 2. Continue medications- lithium, haldol (oral and decanoate) 3. Obtain collateral information 4. Aftercare planning 5- pt reports s/s of vaginal yeast infect- will tx. 10/04: prazosin 16 mg QHS increased to 18 mg QHS for nightmares in PTSD. pt requested and received IM haldol and ativan x2 in the past 24H. 10/05: no change in mgmt. got haldol and ativan IM x2 in past 24H, per her request. I spent minutes with the patient and/or on the patient floor today, greater than?50% of which was spent counseling/coordinating care. Reason for contiued inpatient stay Substantial Risk for: harm to self, inability to function and rapid decompensation
[2021-10-06] MEDS: Haloperidol Lactate 5 MG/ML VIAL IM (23:26)
[2021-10-06] MEDS: LORazepam 2 MG/ML VIAL 1 MG IM (23:27)
--- NOTE | 2021-10-07 00:17 | PC.NURSE ---
Addendum entered by Lashanda Woodruff RN 10/07/21 00:36: Correction: banquet server on call ordered IM Haldol 5mg/ Ativan 1mg Original Note: Pt approached this com writer stating that she didnt feel her po meds were working for her anxiety. She requested if she could get her anxiety meds IM because she felt they worked better, however she was afraid to sk as she didnt want it to reflect badly upon her as a medication restraint because she wants to be discharged and fears that it would affect her leaving. banquet server on call was contacted and requested that this a TO be put in for IM Haldol 5mg /Ativan 2mg.
[2021-10-07] MEDS: Fluticasone/Vilanterol 200/25 BLST.W.DEV 1 PUFF INHALE (11:14)
[2021-10-07] MEDS: Benztropine Mesylate 0.5 MG TABLET PO ×2 (11:14→19:55)
[2021-10-07] MEDS: Fluticasone Propionate Nasal 16 GM SPRAY 2 SPRAY NOSTRIL-B (11:14)
[2021-10-07] MEDS: Ferrous Sulfate 324 MG TABLET.DR PO (11:14)
[2021-10-07] MEDS: DULoxetine HCl 60 MG CAPSULE.DR PO (11:14)
[2021-10-07] MEDS: Topiramate 25 MG TABLET PO ×2 (11:15→19:56)
[2021-10-07] MEDS: Omeprazole 20 MG CAPSULE.DR PO (11:15)
[2021-10-07 11:20] VITALS: RESP 18
--- NOTE | 2021-10-07 14:43 | P.PNPSI_ITS ---
Subjective Subjective Date of Service: 10/07/21 Reason For Visit: SI Interim History: states she asked for IM last night only for sleep, not because she was feeling like hurting herself. says IMs should not be used anymore as she will not have them available outpt. she is asking for DC tomorrow, but MD encourages her to plan for DC morning. states she feels like she is doing well. has only hurt herself a couple times. per staff, had IMs last NOC for sleep. otherwise no notable events or behaviors. Mental Status Exam Mental Status Exam Narrative: appropriately dressed and groomed, many scars from cutting across forearms. no bandage on her forehead, vertical lac visible, closed. cooperative with interview. speech nml in rate, tone, latency, loudness, and amount. thoughts linear, logical. affect full range, appropriate to context, normo-intense, non- labile. no SI/SIBI/HI/AVH expressed. Diagnostics Vital Signs (24Hr): Vital Signs - 24 hr 10/06/21 18:00 10/07/21 11:20 Temperature 98.2 F Pulse Rate 85 Respiratory Rate 18 18 Blood Pressure 111/72 Pulse Oximetry 99 BMI result Body Mass Index 43.4 Labs Labs: Laboratory Results - last 48 hr 10/04/21 08:33 Vitamin B12 248 Folate 5.8 Medications Medications Current Medications Acetaminophen (Acetaminophen 325 Mg Tablet) 650 mg PO Q6H PRN PRN Reason: Headache/Pain Mild Scale (1-3) Al Hydroxide/Mg Hydroxide (Magnesium Hydrox/Alum Hydrox 30 Ml Oral.Susp) 30 ml PO Q6H PRN PRN Reason: Heartburn/Nausea Albuterol Sulfate (Albuterol Sulfate (0.083%) 2.5 Mg/3 Ml Vial.Neb) 2.5 mg INHALE Q4H PRN PRN Reason: Shortness Of Breath Albuterol Sulfate (Albuterol Sulfate 90 Mcg 8 Gm Inhaler) 2 puff INHALE Q4H PRN PRN Reason: Wheezing Benztropine Mesylate (Benztropine Mesylate 0.5 Mg Tablet) 0.5 mg PO BID [facility] Last Admin: 10/07/21 11:14 Dose: 0.5 mg Documented by: Diphenhydramine HCl (Diphenhydramine Hcl 25 Mg Tablet) 100 mg PO BEDTIME [facility] Last Admin: 10/06/21 21:31 Dose: 100 mg Documented by: Duloxetine HCl (Duloxetine Hcl 60 Mg Capsule.) 60 mg PO DAILY [facility] Last Admin: 10/07/21 11:14 Dose: 60 mg Documented by: Ferrous Sulfate (Ferrous Sulfate 324 Mg Tablet.) 324 mg PO DAILY [facility] Last Admin: 10/07/21 11:14 Dose: 324 mg Documented by: Fluticasone Propionate (Fluticasone Propionate Nasal 16 Gm [place]) 2 spray NOSTRIL-B DAILY [facility] Last Admin: 10/07/21 11:14 Dose: 2 spray Documented by: Fluticasone/Vilanterol (Fluticasone/Vilanterol 200/25 Blst.W.Dev) 1 puff INHALE RDAILY [facility] Last Admin: 10/07/21 11:14 Dose: 1 puff Documented by: Haloperidol (Haloperidol 5 Mg Tablet) 5 mg PO TID PRN PRN Reason: ANXIETY, AGITATION Last Admin: 10/05/21 18:56 Dose: 5 mg Documented by: Haloperidol Decanoate (Haloperidol Decanoate 50 Mg/Ml Ampul) 75 mg IM Q28D@1300 [facility] Hydroxyzine HCl (Hydroxyzine Hcl 50 Mg Tablet) 50 mg PO BID PRN PRN Reason: anxiety Last Admin: 10/04/21 11:31 Dose: 50 mg Documented by: Lactic Acid (Ammonium Lactate 12 % Cream 140 Gm Tube) 1 appl TOPICAL BID PRN; Protocol PRN Reason: Dry Skin [place] Carbonate ([place] Carbonate 300 Mg Capsule) 600 mg PO BEDTIME [facility] Last Admin: 10/06/21 21:30 Dose: 600 mg Documented by: Lorazepam (Lorazepam 1 Mg Tablet) 1 mg PO TID PRN PRN Reason: Anxiety/Restlessness Last Admin: 10/06/21 21:33 Dose: 1 mg Documented by: Magnesium Hydroxide (Milk Of Magnesia 30 Ml Oral.Susp) 30 ml PO DAILY PRN PRN Reason: Constipation Mirtazapine (Mirtazapine 30 Mg Tablet) 30 mg PO BEDTIME [facility] Nicotine Polacrilex (Nicotine Polacrilex 2 Mg Gum) 2 mg BUCCAL Q2H PRN PRN Reason: Nicotine Cravings Omeprazole (Omeprazole 20 Mg Capsule.) 20 mg PO DAILY@0630 [facility] Last Admin: 10/07/21 11:15 Dose: 20 mg Documented by: Prazosin HCl (Prazosin Hcl 5 Mg Capsule) 20 mg PO BEDTIME [facility]; Protocol Last Admin: 10/06/21 21:32 Dose: 20 mg Documented by: Sumatriptan Succinate (Sumatriptan Succinate 50 Mg Tablet) 50 mg PO DAILY PRN PRN Reason: Migraine Headache Topiramate (Topiramate 25 Mg Tablet) 25 mg PO BID [facility] Last Admin: 10/07/21 11:15 Dose: 25 mg Documented by: Trazodone HCl (Trazodone Hcl 100 Mg Tablet) 100 mg PO BEDTIME [facility] Last Admin: 10/06/21 21:30 Dose: 100 mg Documented by: Trazodone HCl (Trazodone Hcl 50 Mg Tablet) 50 mg PO BEDTIME PRN PRN Reason: Insomnia Allergies Allergies Allergy/AdvReac Type Severity Reaction Status Date / Time carbamazepine [From TEGRETOL] AdvReac Unknown NAUSEA & Verified 06/01/21 20:14 VOMITING Assessment & Plan Assessment & Plan (1) Schizoaffective disorder, depressive type: Status: Chronic Code(s): F25.1 - Schizoaffective disorder, depressive type (2) Chronic post-traumatic stress disorder (PTSD): Status: Chronic Code(s): F43.12 - Post-traumatic stress disorder, chronic (3) Borderline personality disorder: Status: Chronic Code(s): F60.3 - Borderline personality disorder Plan Ms. Capps is a 36 year-old woman with hx of BPD, PTSD, schizoaffective disorder, well known to this unit and M5 through previous admission with similar presentation. Pt last discharged from on 09/22 after treatment of SI (chronic), SIB. Had 5 ECT tx but worsened in terms of dysregulation and increase SIB/SI, therefore it was stopped. Vraylar discontinued, other medications continued including lithium and haldol. We discussed risks, benefits and alternative treatment, will continue current medications. PLAN 1. Admit to M3, 1:1 due to self injurious behaviors on unit. 2. Continue medications- lithium, haldol (oral and decanoate) 3. Obtain collateral information 4. Aftercare planning 5- pt reports s/s of vaginal yeast infect- will tx. 10/04: prazosin 16 mg QHS increased to 18 mg QHS for nightmares in PTSD. pt requested and received IM haldol and ativan x2 in the past 24H. 10/05: no change in mgmt. got haldol and ativan IM x2 in past 24H, per her request. 10/07: remeron increased to 30 mg at bedtime due to c/o insomnia. I spent minutes with the patient and/or on the patient floor today, greater than?50% of which was spent counseling/coordinating care. Reason for contiued inpatient stay Substantial Risk for: harm to self
[2021-10-07 19:47] VITALS: BP 97/68; PULSE 84; RESP 19; TEMP 36.6; O2SAT 97
[2021-10-07] MEDS: diphenhydrAMINE HCL 25 MG TABLET 100 MG PO (19:55)
[2021-10-07] MEDS: Lithium Carbonate 300 MG CAPSULE 600 MG PO (19:55)
[2021-10-07] MEDS: Prazosin HCL 5 MG CAPSULE 20 MG PO (19:55)
[2021-10-07] MEDS: traZODone HCL 100 MG TABLET PO (19:56)
[2021-10-07] MEDS: LORazepam 1 MG TABLET PO (19:56)
[2021-10-07] MEDS: Mirtazapine 30 MG TABLET PO (19:56)
[2021-10-07] MEDS: hydrOXYzine HCL 50 MG TABLET PO (20:51)
[2021-10-07] MEDS: HaloperidoL 5 MG TABLET PO (20:51)
[2021-10-07] MEDS: traZODone HCL 50 MG TABLET PO (20:51)
[2021-10-08] MEDS: LORazepam 1 MG TABLET PO ×2 (03:38→20:26)
[2021-10-08] MEDS: HaloperidoL 5 MG TABLET PO ×4 (03:38→20:26)
[2021-10-08] MEDS: Omeprazole 20 MG CAPSULE.DR PO (06:42)
[2021-10-08 08:11] VITALS: BP 125/87; PULSE 120; RESP 16; TEMP 36.7; O2SAT 98
[2021-10-08] MEDS: Fluticasone/Vilanterol 200/25 BLST.W.DEV 1 PUFF INHALE (08:20)
[2021-10-08] MEDS: Topiramate 25 MG TABLET PO ×2 (08:21→20:26)
[2021-10-08] MEDS: Fluticasone Propionate Nasal 16 GM SPRAY 2 SPRAY NOSTRIL-B (08:21)
[2021-10-08] MEDS: Ferrous Sulfate 324 MG TABLET.DR PO (08:21)
[2021-10-08] MEDS: DULoxetine HCl 60 MG CAPSULE.DR PO (08:22)
[2021-10-08] MEDS: Benztropine Mesylate 0.5 MG TABLET PO ×2 (08:22→20:25)
--- NOTE | 2021-10-08 11:35 | PC.NURSE ---
PT reporting pain in her breast around her nipple, she reports the pain started yesterday. PT reporting that she believes her biological mother had ovarian cancer. Provider notified, pt advised to follow up with her out patient provider.
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
[2021-10-08] MEDS: Fluconazole 150 MG TABLET PO (15:30)
[2021-10-08] MEDS: hydrOXYzine HCL 50 MG TABLET PO (16:43)
[2021-10-08] MEDS: Acetaminophen 325 MG TABLET 650 MG PO (20:01)
[2021-10-08] MEDS: traZODone HCL 100 MG TABLET PO (20:25)
[2021-10-08] MEDS: Lithium Carbonate 300 MG CAPSULE 600 MG PO (20:26)
[2021-10-08] MEDS: Mirtazapine 30 MG TABLET PO (20:26)
[2021-10-08] MEDS: Prazosin HCL 5 MG CAPSULE 20 MG PO (20:26)
[2021-10-08] MEDS: diphenhydrAMINE HCL 25 MG TABLET 100 MG PO (20:26)
[2021-10-08 20:28] VITALS: BP 121/80; PULSE 90; TEMP 36.5; O2SAT 94
[2021-10-08] MEDS: Ondansetron ODT 8 MG TAB.RAPDIS TRANSLINGU (21:35)
[2021-10-09] MEDS: HaloperidoL 5 MG TABLET PO (02:54)
[2021-10-09] MEDS: LORazepam 1 MG TABLET PO (02:54)
[2021-10-09] MEDS: hydrOXYzine HCL 50 MG TABLET PO (02:54)
[2021-10-09 08:37] VITALS: BP 144/87; PULSE 100; RESP 18; TEMP 36.2; O2SAT 98
[2021-10-09] MEDS: Omeprazole 20 MG CAPSULE.DR PO (08:55)
[2021-10-09] MEDS: Topiramate 25 MG TABLET PO (08:55)
[2021-10-09] MEDS: DULoxetine HCl 60 MG CAPSULE.DR PO (08:55)
[2021-10-09] MEDS: Ferrous Sulfate 324 MG TABLET.DR PO (08:55)
[2021-10-09] MEDS: Benztropine Mesylate 0.5 MG TABLET PO (08:55)
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
== END 2021-10-09 11:23 | disposition home or self-care (01) | DRG 750 ==
LOC: HO.ED 10-03 08:46 → HO.PADLT16 10-03 15:16
PROVIDERS: Social Worker; Admitting Provider Psychiatry & Neurology Psychiatry; Emergency Provider Emergency Medicine; Visit Provider Psychiatry & Neurology Psychiatry
DX: F25.1 Schizoaffective disorder, depressive type (principal); R45.851 Suicidal ideations; F60.3 Borderline personality disorder; F43.12 Post-traumatic stress disorder, chronic; Z20.822 Contact with and (suspected) exposure to COVID-19; Z87.891 Personal history of nicotine dependence; Z79.51 Long term (current) use of inhaled steroids; Z79.899 Other long term (current) drug therapy
CPT/HCPCS: 36415; 80061; 80307; 82607; 82746; 83036; 84443; 87635; 96372; 99284; 99285; J2060; Q0163

== ENCOUNTER 2021-10-18 14:57 | Emergency (ER) | payer OTHER, SELFPAY ==
--- NOTE | ~2021-10-18 | XR_ITS ---
EXAMINATION: XR CHEST CLINICAL INFORMATION: Shortness of breath COMPARISON: Previous chest x-ray May 2021 TECHNIQUE: Frontal view of the chest was obtained. FINDINGS: The cardiac and mediastinal contours are stable. There is a left jugular port with tip projecting over the SVC but appears unchanged. The lungs are clear. There is no pleural effusion or pneumothorax. Bony structures are unremarkable. XR/XR chest 1V IMPRESSION: No evidence for acute disease in the chest.
--- NOTE | ~2021-10-18 | CT_ITS ---
EXAMINATION: CT ABDOMEN AND PELVIS WITH CONTRAST CLINICAL INFORMATION: LUQ/suprapubic/RLQ ttp/N/D COMPARISON: CT abdomen pelvis 02/18/2021 and 02/04/2021 TECHNIQUE: Multidetector volumetric images were obtained from the superior aspect of the liver through the pubic symphysis following administration 85 mL of Omnipaque 350 intravenous contrast. Sagittal and coronal reformatted images were obtained on the technologist's workstation. Oral contrast: No This CT examination was performed using dose optimization techniques as appropriate, variously including the following: *Automated exposure control *Adjustment of mA and/or kV according to patient size (this includes techniques or standardized protocols for targeted exams where dose is matched to indication/reason for exam; i.e. extremities or head) *Use of iterative reconstruction technique DLP: 1060 mGy-cm FINDINGS: LUNG BASES: Some tiny unchanged pulmonary nodules are seen at the lung bases. A tiny pericardial effusion is again noted. LIVER, GALLBLADDER, AND BILIARY TREE: The liver is normal in size, shape, and attenuation. No focal hepatic lesion or biliary ductal dilatation is present. The gallbladder is unremarkable with no evidence of radiopaque gallstones, gallbladder wall thickening, or obvious pericholecystic inflammatory changes. PANCREAS: Unremarkable. SPLEEN: Unremarkable. ADRENAL GLANDS: Unremarkable. KIDNEYS AND URETERS: The kidneys are normal in size, shape, and attenuation. No hydronephrosis, hydroureter, or calculi seen. No perinephric stranding. BLADDER: Unremarkable. GASTROINTESTINAL TRACT: The small and large bowel are unremarkable. The appendix is unremarkable. ABDOMINAL WALL: No significant hernia is appreciated. LYMPH NODES: No retroperitoneal lymphadenopathy. VASCULAR: Unremarkable. PELVIC VISCERA: A normal anteverted uterus containing an IUD is present. An abnormal adnexal mass or free intraperitoneal fluid is not seen. OSSEOUS STRUCTURES: Unremarkable. CT/CT abdomen pelvis w con IMPRESSION: No significant abnormality is seen. An etiology for the patient's left upper quadrant pain, suprapubic pain and right lower quadrant pain with nausea and diarrhea has not been found. Fleischner guidelines were followed.
[2021-10-18 15:04] VITALS: BP 139/85; PULSE 108; RESP 16; TEMP 36.9; O2SAT 100; BMI 49.8
--- NOTE | 2021-10-18 15:12 | ECG_ITS ---
Test Reason : ABD PAIN Blood Pressure : / mmHG Vent. Rate : 083 BPM Atrial Rate : 083 BPM P-R Int : 148 ms QRS Dur : 072 ms QT Int : 382 ms P-R-T Axes : 050 065 041 degrees QTc Int : 448 ms Normal sinus rhythm Normal ECG When compared with ECG of 30-SEP-2021 12:06, No significant change was found Referred By: Leyda Ahn Electronically Signed By:Phillip Alex
--- NOTE | 2021-10-18 15:20 | ED.ABDPAIN ---
HPI - Abdominal Pain General Chief Complaint: Abdominal Pain <JUANITO Saini Last Filed: 10/18/21 17:57> Stated Complaint: abd pain <JUANITO Saini Last Filed: 10/18/21 17:57> Time Seen by Provider: 10/18/21 15:02 <JUANITO Saini Last Filed: 10/18/21 17:57> Source: patient and EMS <JUANITO Saini Last Filed: 10/18/21 17:57> Mode of arrival: EMS <JUANITO Saini Last Filed: 10/18/21 17:57> History of Present Illness HPI narrative: 36-year-old female with a past medical history of PTSD, dust mite disorder, anxiety, asthma, borderline personality disorder, COPD, depression, GERD, schizoaffective disorder, presenting to the ED complaining of rhinorrhea/nasal congestion, chills, cough, mild SOB, & CP yesterday, as well as abdominal pain, nausea, & diarrhea x months. Also reports painless lungs to bilateral upper thighs times months. Denies fever, vomiting <JUANITO Saini Last Filed: 10/18/21 17:57> MD elicited complaint: abdominal pain <JUANITO Saini Last Filed: 10/18/21 17:57> Onset (ago): week(s) <JUANITO Saini Last Filed: 10/18/21 17:57> Related Data Home Medications: Home Medications Medication Instructions Recorded Confirmed omeprazole 20 mg capsule,delayed 20 mg PO DAILY 11/29/20 10/02/21 release cetirizine 10 mg tablet 10 mg PO DAILY 12/24/20 10/02/21 lorazepam 1 mg tablet 1 mg PO TID PRN 03/30/21 10/02/21 fluticasone 250 mcg-salmeterol 50 1 puff INHALATION BID 08/02/21 10/02/21 mcg/dose blistr powdr for inhalation (Advair Diskus) topiramate 25 mg tablet 1 tab PO BID 08/02/21 10/02/21 duloxetine 60 mg capsule,delayed 1 cap PO QAM 08/03/21 10/02/21 release lithium carbonate 300 mg tablet 2 tab PO BEDTIME 08/30/21 10/02/21 acetaminophen 500 mg tablet 500 mg PO Q6H PRN 09/01/21 10/02/21 albuterol sulfate 2.5 mg INHALATION Q4H PRN 09/01/21 10/02/21 hydroxyzine pamoate 50 mg capsule 1 cap PO BID PRN 09/01/21 10/02/21 trazodone 50 mg tablet 100 mg PO BEDTIME PRN 09/01/21 10/02/21 diphenhydramine HCl 50 mg capsule 2 cap PO BEDTIME 10/03/21 10/03/21 (Banophen) ferrous sulfate 325 mg (65 mg 1 tab PO QAM 10/03/21 10/03/21 iron) tablet,delayed release fluticasone propionate 50 2 spray INTRANASAL DAILY 10/03/21 10/03/21 mcg/actuation nasal spray,suspension Previous Rx's Medication Instructions Recorded nicotine (polacrilex) 2 mg gum 2 mg BUCCAL Q2H 30 Days #100 ea 08/11/21 (Nicorette) ammonium lactate 12 % topical cream 1 appl TOPICAL BID PRN 30 Days 09/22/21 #140 g benztropine 0.5 mg tablet 0.5 mg PO BID 30 Days #60 tab 09/22/21 haloperidol 5 mg tablet 5 mg PO TID 30 Days #90 tab 09/22/21 haloperidol decanoate 50 mg/mL 75 mg (1.5 mL) IM Q28D@1300 28 09/22/21 intramuscular solution Days #1.5 ml mirtazapine 30 mg tablet 30 mg PO BEDTIME 30 Days #30 tab 10/09/21 prazosin 5 mg capsule 20 mg PO BEDTIME 30 Days #120 cap 10/09/21 <JUANITO Saini - Last Filed: 10/18/21 17:57> Allergies/Adverse Reactions: Allergies Allergy/AdvReac Type Severity Reaction Status Date / Time carbamazepine [From TEGRETOL] AdvReac Unknown NAUSEA & Verified 06/01/21 20:14 VOMITING <JUANITO Saini - Last Filed: 10/18/21 17:57> Review of Systems Review of Systems Constitutional:No Fever, No Chills, No Fatigue, No Malaise ENT/Mouth: No Hearing loss, No Ear Pain, + Nasal Congestion, No sore throat, + Rhinorrhea, No Swallowing Difficulty Eyes: No Eye Pain, No Swelling, No Redness Cardiovascular: + Chest Pain (yesterday), + SOB, No Dyspnea on Exertion, No Orthopnea, No Edema, No Palpitations Respiratory: + Cough, No Sputum, No Wheezing, No Dyspnea Gastrointestinal: + Nausea, No Vomiting, + Diarrhea, No Constipation, + Abdominal pain Genitourinary: + Dysuria, No Urinary Frequency, + Hematuria, No Urinary Incontinence, No Flank Pain, No Hesitancy Musculoskeletal: No joint pain, No Myalgias, No Joint Swelling Skin: No Skin Lesions, No rash Neuro: No Weakness, No Numbness, No Headache Psych: No Anxiety/Panic, No Depression, No SI/HI <JUANITO Saini - Last Filed: 10/18/21 17:57> Yes all other systems are reviewed and are negative <JUANITO Saini - Last Filed: 10/18/21 17:57> PMFSH Past Medical History Attestation statement: The following information was validated with the patient. <JUANITO Saini - Last Filed: 10/18/21 17:57> Medical History: Medical History Acute post-traumatic stress disorder Adjustment disorder Anxiety Asthma Borderline personality disorder Chronic post-traumatic stress disorder (PTSD) COPD (chronic obstructive pulmonary disease) Depression GERD (gastroesophageal reflux disease) Increased BMI Injury, self-inflicted Intentional self-harm PTSD (post-traumatic stress disorder) Recurrent major depression-severe Schizoaffective disorder Self-harming behavior Suicidal ideation Suicidal ideation <JUANITO Saini - Last Filed: 10/18/21 17:57> Social History Social History: Social History Household Members: Other Household Members Other:: correction Housing: Other Housing Other:: correction Do you presently have visiting nurse or other home services: No Alcohol intake: unknown Patient Tobacco Use Status: Former Tobacco user Quit Date: 02-19-21 Tobacco use type: Cigarette Cigarette Packs Per Day: 1 Cigarettes Per Day: 20.0 Years Smoked: 17 e-Cigarette/Vaping Use: Never Used Second Hand Smoke Exposure: Yes Substance Use Type: Marijuana Advance Directives: No Advance Directives Information Provided: No service: No Sexual orientation: Don't Know <JUANITO Saini - Last Filed: 10/18/21 17:57> Physical Exam ED Vital Signs: Vital Signs - 24 hr 10/18/21 15:04 10/18/21 16:45 Temperature 98.5 F 98.4 F Pulse Rate 108 H 85 Respiratory Rate 16 16 Blood Pressure 139/85 128/77 Pulse Oximetry 100 98 BMI result Body Mass Index 49.8 <JUANITO Saini - Last Filed: 10/18/21 17:57> Vital Signs - 24 hr 10/18/21 15:04 10/18/21 16:45 Temperature 98.5 F 98.4 F Pulse Rate 108 H 85 Respiratory Rate 16 16 Blood Pressure 139/85 128/77 Pulse Oximetry 100 98 BMI result Body Mass Index 49.8 <Vanessa Tafoya NP - Last Filed: 10/18/21 18:59> Const General: cooperative, healthy appearing and no acute distress <JUANITO Saini - Last Filed: 10/18/21 17:57> Orientation/consciousness: patient oriented x3 <JUANITO Saini - Last Filed: 10/18/21 17:57> Limitations: no limitations <JUANITO Saini - Last Filed: 10/18/21 17:57> HENMT Head: Yes normal to inspection <JUANITO Saini - Last Filed: 10/18/21 17:57> Ears: hearing grossly normal bilaterally <JUANITO Saini - Last Filed: 10/18/21 17:57> General nose exam: Normal external nose present <JUANITO Saini - Last Filed: 10/18/21 17:57> Face and sinus: Yes normal facial exam <JUANITO Saini - Last Filed: 10/18/21 17:57> Eyes General: appearance normal, both eyes and all related structures <JUANITO Saini - Last Filed: 10/18/21 17:57> EOM: EOMs intact bilaterally <JUANITO Saini - Last Filed: 10/18/21 17:57> Neck Neck: Yes normal visual inspection and Yes no meningeal signs <JUANITO Saini - Last Filed: 10/18/21 17:57> Resp Effort & Inspection: normal respiratory effort and no respiratory distress <Leyda Ahn PA - Last Filed: 10/18/21 17:57> Auscultation: clear to auscultation bilaterally, no rales, no rhonchi and no wheezes <Leyda Ahn PA - Last Filed: 10/18/21 17:57> Cardio Rate: regular rate <Leyda Poulkyara PA - Last Filed: 10/18/21 17:57> Heart sounds: S1 normal heart sound present and S2 normal heart sound present <Leyda Ahn PA - Last Filed: 10/18/21 17:57> GI Inspection: Yes normal to inspection <Leyda Ahn PA - Last Filed: 10/18/21 17:57> Palpation (GI): Soft to palpation, Tenderness to palpation present (GI) in the RLQ, in the LUQ and suprapubicly, no guarding and not rigid <Leyda Ahn PA - Last Filed: 10/18/21 17:57> General: Yes no CVA tenderness <Leyda Ahn PA - Last Filed: 10/18/21 17:57> Back/Spine/Pelvis Back: no CVA tenderness <Leyda Ahn PA - Last Filed: 10/18/21 17:57> Skin Other: Painless mobile lump/cyst to right thigh <Leyda Ahn PA - Last Filed: 10/18/21 17:57> Rashes: no rashes <Leyda Ahn PA - Last Filed: 10/18/21 17:57> Wounds: no wounds <Leyda Ahn PA - Last Filed: 10/18/21 17:57> Neuro General: patient oriented x3, tone normal, moves all extremities and no meningeal signs <Leyda Ahn PA - Last Filed: 10/18/21 17:57> Extrem General: Yes normal to inspection <Leyda Ahn PA - Last Filed: 10/18/21 17:57> Course Course Course Narrative: -1635--no leukocytosis. H&H stable. Labs otherwise unremarkable. COVID-19 negative XR chest 1V IMPRESSION: No evidence for acute disease in the chest. -1800--ED care transferred to JUANITO Mendez pending CT abdomen/pelvis, UA, and anticipated DC home <JUANITO Saini - Last Filed: 10/18/21 17:57> -1635--no leukocytosis. H&H stable. Labs otherwise unremarkable. COVID-19 negative XR chest 1V IMPRESSION: No evidence for acute disease in the chest. -1800--ED care transferred to JUANITO Mendez pending CT abdomen/pelvis, UA, and anticipated DC home 1900-CT abdomen and pelvis unremarkable. UA shows no acute finding. Patient will be discharged home to the correction <Vanessa Tafoya NP - Last Filed: 10/18/21 18:59> MDM - Abdominal Pain MDM Narrative Medical decision making narrative: 36-year-old female with a past medical history of PTSD, dust mite disorder, anxiety, asthma, borderline personality disorder, COPD, depression, GERD, schizoaffective disorder, presenting to the ED complaining of rhinorrhea/nasal congestion, chills, cough, mild SOB, & CP yesterday, as well as abdominal pain, nausea, & diarrhea x months. On exam mildly tachycardic, NAD/nontoxic appearing, lungs CTA, abdomen soft with LUQ/suprapubic/RLQ TTP, no rebound or guarding. Concern for viral syndrome/COVID-19. Rule out pneumonia. Rule out intra-abdominal pathology including pancreatitis/appendicitis/diverticulitis vs colitis/gastroenteritis and UTI. Low concern for severe sepsis, tachycardia likely from increased anxiety Plan: EKG, labs, UA, CXR, CT abdomen/pelvis, IVF, symptomatic treatment, re-evaluate <JUANITO Saini - Last Filed: 10/18/21 17:57> Medical Records Attestation: I reviewed the patient's medical records. <JUANITO Saini - Last Filed: 10/18/21 17:57> Lab Data Attestation: I reviewed the patient's lab results. <JUANITO Saini - Last Filed: 10/18/21 17:57> Result diagrams: : 10/18/21 15:55 10/18/21 15:55 <JUANITO Saini - Last Filed: 10/18/21 17:57> Labs: Lab Results 10/18/21 10/18/21 10/18/21 Range/Units 15:55 15:55 15:55 WBC 9.3 (4.8-10.8) X10*3/uL RBC 4.18 L (4.20-5.50) X10*6/uL Hgb 11.2 L (12.0-16.0) g/dl Hct 35.6 L (37.0-47.0) % MCV 85.2 (80.0-98.0) fL MCH 26.8 L (27.0-33.0) pg MCHC 31.5 (31.0-35.0) g/dl RDW 16.1 H (11.0-16.0) % Plt Count 329 (160-400) X10*3/uL MPV 10.0 (9.4-12.3) fL Immature Gran % (Auto) 0.3 (0.0-0.4) % Neut % (Auto) 72.6 (45-73) % Lymph % (Auto) 21.3 (20-40) % Cobb % (Auto) 5.0 (2-11) % Eos % (Auto) 0.6 (0-4) % Baso % (Auto) 0.2 (0-2) % Lymph # (Auto) 2.0 (1.2-4.9) X10*3/uL Cobb # (Auto) 0.5 (0.1-1.2) X10*3/uL Eos # (Auto) 0.1 (0.0-0.4) X10*3/uL Baso # (Auto) 0.0 (0.0-0.2) X10*3/uL Abs Immat Gran (auto) 0.03 (0.00-0.03) X10*3/uL Absolute Neuts (auto) 6.7 (2.0-8.3) x10*3/uL Absolute Nucleated RBC 0.000 (0.0-0.012) X10*3/uL Nucleated RBC % (auto) 0.0 (0.0-0.2) /100WBC Sodium 138 (135-145) mmol/L Potassium 4.1 (3.3-5.1) mmol/L Chloride 110 H (96-108) mmol/L Carbon Dioxide 22 (22-29) mmol/L Anion Gap 10 L (12-20) BUN 10 D (9-16) mg/dL Creatinine 0.82 (0.5-1.4) mg/dL Estim Creat Clear Calc 106.8 Estimated GFR > 60 Random Glucose 87 (60-115) mg/dL Calcium 9.3 (8.4-10.2) mg/dL Magnesium 2.0 (1.6-2.6) mg/dL Total Bilirubin < 0.2 (0.0-1.0) mg/dL Direct Bilirubin < 0.2 (0.0-0.5) mg/dL AST 14 (5-31) U/L ALT 9 (0-31) U/L Alkaline Phosphatase 76 (39-117) U/L Troponin I High Sens < 3.5 (<3.5-17.0) ng/L B-Natriuretic Peptide 19 (<100) pg/mL Total Protein 6.7 (6.5-8.0) g/dL Albumin 4.1 (3.5-5.0) g/dL Lipase 21 (8-78) U/L Beta HCG, Quant < 2 mIU/mL Urine Color Urine Appearance Urine pH (5.0-8.0) Ur Specific [place] (1.005-1.025) Urine Protein (NEG-TRACE) MG/DL Urine Glucose (UA) (NEG) MG/DL Urine Ketones (NEG) MG/DL Urine Blood (NEG) Urine Nitrite (NEG) Ur Leukocyte Esterase (NEG) COVID-19 (RAFAL) (Negative) COVID-19 Clin Com 10/18/21 10/18/21 10/18/21 Range/Units 15:55 15:55 18:44 WBC (4.8-10.8) X10*3/uL RBC (4.20-5.50) X10*6/uL Hgb (12.0-16.0) g/dl Hct (37.0-47.0) % MCV (80.0-98.0) fL MCH (27.0-33.0) pg MCHC (31.0-35.0) g/dl RDW (11.0-16.0) % Plt Count (160-400) X10*3/uL MPV (9.4-12.3) fL Immature Gran % (Auto) (0.0-0.4) % Neut % (Auto) (45-73) % Lymph % (Auto) (20-40) % Cobb % (Auto) (2-11) % Eos % (Auto) (0-4) % Baso % (Auto) (0-2) % Lymph # (Auto) (1.2-4.9) X10*3/uL Cobb # (Auto) (0.1-1.2) X10*3/uL Eos # (Auto) (0.0-0.4) X10*3/uL Baso # (Auto) (0.0-0.2) X10*3/uL Abs Immat Gran (auto) (0.00-0.03) X10*3/uL Absolute Neuts (auto) (2.0-8.3) x10*3/uL Absolute Nucleated RBC (0.0-0.012) X10*3/uL Nucleated RBC % (auto) (0.0-0.2) /100WBC Sodium (135-145) mmol/L Potassium (3.3-5.1) mmol/L Chloride (96-108) mmol/L Carbon Dioxide (22-29) mmol/L Anion Gap (12-20) BUN (9-16) mg/dL Creatinine (0.5-1.4) mg/dL Estim Creat Clear Calc Estimated GFR Random Glucose (60-115) mg/dL Calcium (8.4-10.2) mg/dL Magnesium (1.6-2.6) mg/dL Total Bilirubin (0.0-1.0) mg/dL Direct Bilirubin (0.0-0.5) mg/dL AST (5-31) U/L ALT (0-31) U/L Alkaline Phosphatase (39-117) U/L Troponin I High Sens (<3.5-17.0) ng/L B-Natriuretic Peptide Cancelled (<100) pg/mL Total Protein (6.5-8.0) g/dL Albumin (3.5-5.0) g/dL Lipase (8-78) U/L Beta HCG, Quant mIU/mL Urine Color YELLOW Urine Appearance HAZY Urine pH 6.0 (5.0-8.0) Ur Specific [place] 1.010 (1.005-1.025) Urine Protein TRACE (NEG-TRACE) MG/DL Urine Glucose (UA) NEG (NEG) MG/DL Urine Ketones NEG (NEG) MG/DL Urine Blood 3+ H (NEG) Urine Nitrite NEG (NEG) Ur Leukocyte Esterase NEG (NEG) COVID-19 (RAFAL) Negative (Negative) COVID-19 Clin Com See Note <JUANITO Saini - Last Filed: 10/18/21 17:57> Lab Results 10/18/21 10/18/21 10/18/21 Range/Units 15:55 15:55 15:55 WBC 9.3 (4.8-10.8) X10*3/uL RBC 4.18 L (4.20-5.50) X10*6/uL Hgb 11.2 L (12.0-16.0) g/dl Hct 35.6 L (37.0-47.0) % MCV 85.2 (80.0-98.0) fL MCH 26.8 L (27.0-33.0) pg MCHC 31.5 (31.0-35.0) g/dl RDW 16.1 H (11.0-16.0) % Plt Count 329 (160-400) X10*3/uL MPV 10.0 (9.4-12.3) fL Immature Gran % (Auto) 0.3 (0.0-0.4) % Neut % (Auto) 72.6 (45-73) % Lymph % (Auto) 21.3 (20-40) % Cobb % (Auto) 5.0 (2-11) % Eos % (Auto) 0.6 (0-4) % Baso % (Auto) 0.2 (0-2) % Lymph # (Auto) 2.0 (1.2-4.9) X10*3/uL Cobb # (Auto) 0.5 (0.1-1.2) X10*3/uL Eos # (Auto) 0.1 (0.0-0.4) X10*3/uL Baso # (Auto) 0.0 (0.0-0.2) X10*3/uL Abs Immat Gran (auto) 0.03 (0.00-0.03) X10*3/uL Absolute Neuts (auto) 6.7 (2.0-8.3) x10*3/uL Absolute Nucleated RBC 0.000 (0.0-0.012) X10*3/uL Nucleated RBC % (auto) 0.0 (0.0-0.2) /100WBC Sodium 138 (135-145) mmol/L Potassium 4.1 (3.3-5.1) mmol/L Chloride 110 H (96-108) mmol/L Carbon Dioxide 22 (22-29) mmol/L Anion Gap 10 L (12-20) BUN 10 D (9-16) mg/dL Creatinine 0.82 (0.5-1.4) mg/dL Estim Creat Clear Calc 106.8 Estimated GFR > 60 Random Glucose 87 (60-115) mg/dL Calcium 9.3 (8.4-10.2) mg/dL Magnesium 2.0 (1.6-2.6) mg/dL Total Bilirubin < 0.2 (0.0-1.0) mg/dL Direct Bilirubin < 0.2 (0.0-0.5) mg/dL AST 14 (5-31) U/L ALT 9 (0-31) U/L Alkaline Phosphatase 76 (39-117) U/L Troponin I High Sens < 3.5 (<3.5-17.0) ng/L B-Natriuretic Peptide 19 (<100) pg/mL Total Protein 6.7 (6.5-8.0) g/dL Albumin 4.1 (3.5-5.0) g/dL Lipase 21 (8-78) U/L Beta HCG, Quant < 2 mIU/mL Urine Color Urine Appearance Urine pH (5.0-8.0) Ur Specific [place] (1.005-1.025) Urine Protein (NEG-TRACE) MG/DL Urine Glucose (UA) (NEG) MG/DL Urine Ketones (NEG) MG/DL Urine Blood (NEG) Urine Nitrite (NEG) Ur Leukocyte Esterase (NEG) COVID-19 (RAFAL) (Negative) COVID-19 Clin Com 10/18/21 10/18/21 10/18/21 Range/Units 15:55 15:55 18:44 WBC (4.8-10.8) X10*3/uL RBC (4.20-5.50) X10*6/uL Hgb (12.0-16.0) g/dl Hct (37.0-47.0) % MCV (80.0-98.0) fL MCH (27.0-33.0) pg MCHC (31.0-35.0) g/dl RDW (11.0-16.0) % Plt Count (160-400) X10*3/uL MPV (9.4-12.3) fL Immature Gran % (Auto) (0.0-0.4) % Neut % (Auto) (45-73) % Lymph % (Auto) (20-40) % Cobb % (Auto) (2-11) % Eos % (Auto) (0-4) % Baso % (Auto) (0-2) % Lymph # (Auto) (1.2-4.9) X10*3/uL [place] # (Auto) (0.1-1.2) X10*3/uL Eos # (Auto) (0.0-0.4) X10*3/uL Baso # (Auto) (0.0-0.2) X10*3/uL Abs Immat Gran (auto) (0.00-0.03) X10*3/uL Absolute Neuts (auto) (2.0-8.3) x10*3/uL Absolute Nucleated RBC (0.0-0.012) X10*3/uL Nucleated RBC % (auto) (0.0-0.2) /100WBC Sodium (135-145) mmol/L Potassium (3.3-5.1) mmol/L Chloride (96-108) mmol/L Carbon Dioxide (22-29) mmol/L Anion Gap (12-20) BUN (9-16) mg/dL Creatinine (0.5-1.4) mg/dL Estim Creat Clear Calc Estimated GFR Random Glucose (60-115) mg/dL Calcium (8.4-10.2) mg/dL Magnesium (1.6-2.6) mg/dL Total Bilirubin (0.0-1.0) mg/dL Direct Bilirubin (0.0-0.5) mg/dL AST (5-31) U/L ALT (0-31) U/L Alkaline Phosphatase (39-117) U/L Troponin I High Sens (<3.5-17.0) ng/L B-Natriuretic Peptide Cancelled (<100) pg/mL Total Protein (6.5-8.0) g/dL Albumin (3.5-5.0) g/dL Lipase (8-78) U/L Beta HCG, Quant mIU/mL Urine Color YELLOW Urine Appearance HAZY Urine pH 6.0 (5.0-8.0) Ur Specific [place] 1.010 (1.005-1.025) Urine Protein TRACE (NEG-TRACE) MG/DL Urine Glucose (UA) NEG (NEG) MG/DL Urine Ketones NEG (NEG) MG/DL Urine Blood 3+ H (NEG) Urine Nitrite NEG (NEG) Ur Leukocyte Esterase NEG (NEG) COVID-19 (RAFAL) Negative (Negative) COVID-19 Clin Com See Note <Vanessa Tafoya NP - Last Filed: 10/18/21 18:59> Discharge Plan Discharge Clinical Impression: Viral syndrome, Abdominal pain <JUANITO Saini - Last Filed: 10/18/21 17:57> Patient Disposition: Xfer Other <JUANITO Saini - Last Filed: 10/18/21 17:57> Transfer Details: correction <JUANITO Saini - Last Filed: 10/18/21 17:57> correction <Vanessa Tafoya NP - Last Filed: 10/18/21 18:59> Instructions: Viral Syndrome (ED), Abdominal Pain (ED) <JUANITO Saini - Last Filed: 10/18/21 17:57> Additional Instructions: your blood work is reassuring Your chest x-ray is unremarkable. You tested negative for COVID-19 Please continue home prescribed medications. If symptoms persist or worsen, pain becomes unbearable patient turn to the emergency department <JUANITO Saini - Last Filed: 10/18/21 17:57> Prescriptions: No Action omeprazole 20 mg capsule,delayed release(DR/EC) 20 mg PO DAILY 0RF cetirizine 10 mg Tablet 10 mg PO DAILY 0RF lorazepam 1 mg tablet 1 mg PO TID PRN (Reason: Anxiety/Restlessness ) 0RF topiramate 25 mg tablet 1 tab PO BID 0RF fluticasone propion-salmeterol [Advair Diskus] 250-50 mcg/dose blister with device 1 puff inhalation BID 0RF duloxetine 60 mg capsule,delayed release(DR/EC) 1 cap PO QAM 0RF nicotine (polacrilex) [Nicorette] 2 mg gum 2 mg buccal Q2H 30 Days Qty: 100 0RF lithium carbonate 300 mg tablet 2 tab PO BEDTIME 0RF diphenhydramine HCl [Banophen] 50 mg capsule 2 cap PO BEDTIME 0RF ferrous sulfate 325 mg (65 mg iron) tablet,delayed release (DR/EC) 1 tab PO QAM 0RF fluticasone propionate 50 mcg/actuation spray,suspension 2 spray intranasal DAILY 0RF prazosin 5 mg Capsule 20 mg PO BEDTIME 30 Days Qty: 120 0RF Protocol: Hold for SBP< HOLD for SBP < : 90 mirtazapine 30 mg Tablet 30 mg PO BEDTIME 30 Days Qty: 30 0RF trazodone 50 mg tablet 100 mg PO BEDTIME PRN (Reason: Insomnia) 0RF hydroxyzine pamoate 50 mg capsule 1 cap PO BID PRN (Reason: anxiety) 0RF albuterol sulfate 2.5 mg /3 mL (0.083 %) Solution For Nebulization 2.5 mg INHALATION Q4H PRN (Reason: Shortness Of Breath) 0RF acetaminophen 500 mg Tablet 500 mg PO Q6H PRN (Reason: Pain (Scale Score 1-3)) 0RF benztropine 0.5 mg Tablet 0.5 mg PO BID 30 Days Qty: 60 0RF haloperidol 5 mg Tablet 5 mg PO TID 30 Days Qty: 90 0RF haloperidol decanoate 50 mg/mL Solution 75 mg IM Q28D@1300 28 Days Qty: 1.5 0RF ammonium lactate 12 % Cream 1 appl topical BID PRN (Reason: Dry Skin) 30 Days Qty: 140 0RF Protocol: Apply to: Apply to: bilateral feet <JUANITO Saini - Last Filed: 10/18/21 17:57> Referrals: Carroll Gaviria MD [Primary Care Provider] - 2 days <JUANITO Saini - Last Filed: 10/18/21 17:57>
[2021-10-18] MEDS: 0.9 % Sodium Chloride 1,000 ML 999 ML IV (15:39)
[2021-10-18] MEDS: Acetaminophen 325 MG TABLET 650 MG PO (15:42)
[2021-10-18 16:02] LABS: MANUAL DIFF FLAG NO
[2021-10-18 16:03] LABS: Basophils Percent Auto 0.2 % (0-2); Eosinophils Absolute Auto 0.1 X10*3/uL (0.0-0.4); Eosinophils Percent Auto 0.6 % (0-4); Hematocrit 35.6 % (37.0-47.0); Hemoglobin 11.2 g/dl (12.0-16.0); Imm Gran Abs Auto 0.03 X10*3/uL (0.00-0.03); Imm Gran Pct Auto 0.3 % (0.0-0.4); Lymphocytes Percent Auto 21.3 % (20-40); Mean Corpuscular HGB Conc 31.5 g/dl (31.0-35.0); Mean Corpuscular Hemoglobin 26.8 pg (27.0-33.0); Mean Corpuscular Volume 85.2 fL (80.0-98.0); Monocytes Absolute Auto 0.5 X10*3/uL (0.1-1.2); Neutrophils Absolute Auto 6.7 x10*3/uL (2.0-8.3); Neutrophils Percent Auto 72.6 % (45-73); Platelet Count 329 X10*3/uL (160-400); Red Blood Count 4.18 X10*6/uL (4.20-5.50); Red Cell Distribution Width 16.1 % (11.0-16.0); White Blood Count 9.3 X10*3/uL (4.8-10.8)
[2021-10-18 16:20] LABS: COVID-19 Test Negative (Negative); IDNOW Serial# 16C4AD1C
[2021-10-18 16:26] LABS: B Type Natriuretic Peptide 19 pg/mL (<100); Troponin-I High Sensitivity < 3.5 ng/L (<3.5-17.0)
[2021-10-18 16:32] LABS: Alanine Aminotransferase 9 U/L (0-31); Albumin Level 4.1 g/dL (3.5-5.0); Alkaline Phosphatase 76 U/L (39-117); Anion Gap 10 (12-20); Aspartate Amino Transferase 14 U/L (5-31); Bilirubin Direct < 0.2 mg/dL (0.0-0.5); Bilirubin Total < 0.2 mg/dL (0.0-1.0); Blood Urea Nitrogen 10 mg/dL (9-16); Calcium 9.3 mg/dL (8.4-10.2); Carbon Dioxide 22 mmol/L (22-29); Chloride 110 mmol/L (96-108); Creatinine Clr Calc Pharmacy 106.8; Estimated Glomerular Filt Rate > 60; Glucose Random 87 mg/dL (60-115); Lipase 21 U/L (8-78); Potassium 4.1 mmol/L (3.3-5.1); Sodium 138 mmol/L (135-145); Total Protein 6.7 g/dL (6.5-8.0)
[2021-10-18 16:45] VITALS: BP 128/77; PULSE 85; RESP 16; TEMP 36.9; O2SAT 98
[2021-10-18 17:01] LABS: HCG Quantitative < 2 mIU/mL
[2021-10-18] MEDS: iohexoL 350 MG/ML 100 ML INFUS..BTL IV (17:59)
[2021-10-18 18:51] LABS: Appearance Urine HAZY; Color Urine YELLOW; Glucose Urine UA NEG (NEG); Leukocyte Esterase Urine NEG (NEG); Nitrite Urine NEG (NEG); UACC Culture Trigger NO; Urine Blood 3+ (NEG); Urine Ketones NEG (NEG); Urine Protein TRACE MG/DL (NEG-TRACE)
[2021-10-18 18:59] LABS: Bacteria Urine 1+ /LPF; Squamous Epithelial Cell Urine 3+ /LPF; WBC Urine 0 /HPF (0-4)
[2021-10-18 19:12] VITALS: BP 98/65; PULSE 78; RESP 13; TEMP 36.7; O2SAT 98
[2021-10-18] MEDS: Heparin Sodium,Porcine Flush 50 UNITS, 0.9 % Sodium Chloride Flush 5 ML IVFLUSH (19:37)
== END 2021-10-18 19:41 | disposition home or self-care (01) ==
PROVIDERS: Physician Assistant; Emergency Provider Emergency Medicine Emergency Medical Services; PCP Pediatrics
DX: B34.9 Viral infection, unspecified (principal); R10.9 Unspecified abdominal pain; R06.02 Shortness of breath; Z20.822 Contact with and (suspected) exposure to COVID-19
CPT/HCPCS: 36415; 71045; 74177; 80048; 80076; 81001; 83690; 83735; 83880; 84484; 84702; 85025; 87635; 93005; 96360; 99284; 99285; J1642; Q9967

== ENCOUNTER 2021-10-19 20:47 | Emergency (ER) | payer OTHER, SELFPAY ==
[2021-10-19 20:53] VITALS: BP 145/74; PULSE 109; RESP 18; TEMP 36.2; O2SAT 100; BMI 38.4
--- NOTE | 2021-10-19 20:56 | ED_ITS ---
HPI - Psych General Chief Complaint: Psychiatric Symptoms Stated Complaint: crisis Time Seen by Provider: 10/19/21 20:56 Source: patient Mode of arrival: ambulatory Limitations: no limitations History of Present Illness HPI Narrative: 36-year-old female well known to our facility past medical history significant for schizoaffective disorder depressive type, borderline personality disorder,? PTSD, self-inflicted injuries presenting to the emergency department via ambulance for depression and self-inflicted wounds X1 day . Patient tells me there has been a lot of life changes recently that she does not quite want to elaborate on at this time. She tells me I am just trying to understand life . She tells me she cut just so she can feel something. She denies SI and HI. Denies visual, auditory and tactile hallucinations. Denies drugs, alcohol and tobacco. Taking all medications as prescribed MD complaint: feels depressed Onset (ago): day(s) (2) Duration: constant History of same: Yes Relieving factors: other (cutting) Exacerbating factors: none Associated psychiatric symptoms: none Associated symptoms: denies other symptoms Treatments prior to arrival: none Related Data Home Medications Medication Instructions Recorded Confirmed omeprazole 20 mg capsule,delayed 20 mg PO DAILY 11/29/20 10/19/21 release cetirizine 10 mg tablet 10 mg PO DAILY 12/24/20 10/19/21 lorazepam 1 mg tablet 1 mg PO TID PRN 03/30/21 10/19/21 fluticasone 250 mcg-salmeterol 50 1 puff INHALATION BID 08/02/21 10/19/21 mcg/dose blistr powdr for inhalation (Advair Diskus) topiramate 25 mg tablet 1 tab PO BID 08/02/21 10/19/21 duloxetine 60 mg capsule,delayed 1 cap PO QAM 08/03/21 10/19/21 release acetaminophen 500 mg tablet 500 mg PO Q6H PRN 09/01/21 10/19/21 albuterol sulfate 2.5 mg INHALATION Q4H PRN 09/01/21 10/19/21 hydroxyzine pamoate 50 mg capsule 1 cap PO BID PRN 09/01/21 10/19/21 trazodone 50 mg tablet 100 mg PO BEDTIME PRN 09/01/21 10/19/21 diphenhydramine HCl 50 mg capsule 2 cap PO BEDTIME 10/03/21 10/19/21 (Banophen) ferrous sulfate 325 mg (65 mg 1 tab PO QAM 10/03/21 10/19/21 iron) tablet,delayed release fluticasone propionate 50 2 spray INTRANASAL DAILY 10/03/21 10/19/21 mcg/actuation nasal spray,suspension Previous Rx's Medication Instructions Recorded nicotine (polacrilex) 2 mg gum 2 mg BUCCAL Q2H 30 Days #100 ea 08/11/21 (Nicorette) ammonium lactate 12 % topical cream 1 appl TOPICAL BID PRN 30 Days 09/22/21 #140 g benztropine 0.5 mg tablet 0.5 mg PO BID 30 Days #60 tab 09/22/21 haloperidol 5 mg tablet 5 mg PO TID 30 Days #90 tab 09/22/21 haloperidol decanoate 50 mg/mL 75 mg (1.5 mL) IM Q28D@1300 28 09/22/21 intramuscular solution Days #1.5 ml mirtazapine 30 mg tablet 30 mg PO BEDTIME 30 Days #30 tab 10/09/21 prazosin 5 mg capsule 20 mg PO BEDTIME 30 Days #120 cap 10/09/21 Allergies Allergy/AdvReac Type Severity Reaction Status Date / Time carbamazepine [From TEGRETOL] AdvReac Unknown NAUSEA & Verified 06/01/21 20:14 VOMITING Review of Systems Review of Systems: Constitutional : No Weight loss, No Fever, No Chills, No Fatigue, No Malaise ENT/Mouth : No sore throat, No Rhinorrhea Eyes: No Eye Pain, No Swelling, No Redness Cardiovascular : No Chest Pain, No SOB, No Dyspnea on Exertion, No Orthopnea, No Edema, No Palpitations Respiratory : No Cough, No Sputum, No Wheezing Gastrointestinal : No Nausea, No Vomiting, No Diarrhea, No Constipation, No abdo suleiman Pain, No Hematochezia, No Melena Genitourinary : No Dysuria, No Urinary Frequency, No Hematuria, Musculoskeletal : No joint pain, No Myalgias, No Joint Swelling Skin : No Skin Lesions, No rash, + laceration Neuro : No Weakness, No Numbness, No Dizziness, No Headache Psych : No Anxiety/Panic, No Depression, No SI/HI, No VH/AH/TH All other systems reviewed and are negative Yes all other systems are reviewed and are negative [facility] Past Medical History Attestation statement: The following information was validated with the patient. Source: old records reviewed and nursing notes reviewed Medical History Acute post-traumatic stress disorder Adjustment disorder Anxiety Asthma Borderline personality disorder Chronic post-traumatic stress disorder (PTSD) COPD (chronic obstructive pulmonary disease) Depression GERD (gastroesophageal reflux disease) Increased BMI Injury, self-inflicted Intentional self-harm PTSD (post-traumatic stress disorder) Recurrent major depression-severe Schizoaffective disorder Self-harming behavior Suicidal ideation Suicidal ideation Social History Social History Household Members: Other Household Members Other:: residential Housing: Other Housing Other:: residential Do you presently have visiting nurse or other home services: No Alcohol intake: unknown Patient Tobacco Use Status: Former Tobacco user Quit Date: 02-19-21 Tobacco use type: Cigarette Cigarette Packs Per Day: 1 Cigarettes Per Day: 20.0 Years Smoked: 17 e-Cigarette/Vaping Use: Never Used Second Hand Smoke Exposure: Yes Substance Use Type: Marijuana Advance Directives: No Advance Directives Information Provided: No Patient : No service: No Sexual orientation: Don't Know Physical Exam Vital Signs: Vital Signs: Last Vital Signs Temp 97.3 F 10/19/21 22:00 Pulse 92 10/19/21 22:00 Resp 16 10/19/21 22:00 BP 115/56 L 10/19/21 22:00 Pulse Ox 96 10/19/21 22:00 BMI result Body Mass Index 38.4 VSS Appearance: Alert.? Oriented X3.? No acute distress.? Head: Normocephalic, atraumatic, no step-offs or deformities Eyes: Pupils equal, round and reactive to light.? ENT: Pharynx normal.? Neck: Normal inspection.? Neck supple.? CVS: Normal heart rate and rhythm.? Pulses normal.? Respiratory: No respiratory distress.? Breath sounds normal.? Abdomen: Soft and nontender.? Skin: Skin warm and dry.? Normal skin color.? Normal skin turgor.?+ self- inflicted wounds to bilateral forearms. Extremities: No lower extremity edema.? No calf ttp. 5/5 strength to bilateral upper and lower extremities Back: No midline tenderness, no C-spine tenderness, full range of motion, no CVA tenderness bilaterally Neuro: Oriented X 3.? No motor deficit.? No sensory deficit. CN 2-12 intact Course Reevaluation(s) Reevaluation #1: Successfully sutured patient's forearm with 3 4-O non disolvable sutures. Patient tolerated procedure well. Shaylee from the care team spoke to patient. Patient has an appointment with her therapist tomorrow at 10:00. The residential got her a large punching bag that she can use. She does not feel suicidal or homicidal. Advised her to return for suture removal in 7-10 days. At this time patient would like to go home. I feel comfortable with plan. She should follow-up with her psych iatrist, therapist and PCP. Time: 00:01 Reevaluation #2: Labs appear to be at patient's baseline. Time: 00:07 MDM - Psych MDM Narrative Medical decision making narrative: 2[age] yo F presents w/ depression and self inflicted wounds X1 day. Denies SI/HI. PE- significant for self-inflicted wounds to bilateral upper extremities. Images in chart. One laceration will require repair. Plan basic labs, urine, [facility] Medical Records Attestation: I reviewed the patient's medical records. Lab Data Attestation: I reviewed the patient's lab results. Result diagrams: 10/19/21 23:34 10/19/21 23:34 Labs: Lab Results 10/19/21 10/19/21 10/19/21 Range/Units 20:59 21:07 21:07 WBC (4.8-10.8) X10*3/uL RBC (4.20-5.50) X10*6/uL Hgb (12.0-16.0) g/dl Hct (37.0-47.0) % MCV (80.0-98.0) fL MCH (27.0-33.0) pg MCHC (31.0-35.0) g/dl RDW (11.0-16.0) % Plt Count (160-400) X10*3/uL MPV (9.4-12.3) fL Immature Gran % (Auto) (0.0-0.4) % Neut % (Auto) (45-73) % Lymph % (Auto) (20-40) % [place] % (Auto) (2-11) % Eos % (Auto) (0-4) % Baso % (Auto) (0-2) % Lymph # (Auto) (1.2-4.9) X10*3/uL [place] # (Auto) (0.1-1.2) X10*3/uL Eos # (Auto) (0.0-0.4) X10*3/uL Baso # (Auto) (0.0-0.2) X10*3/uL Abs Immat Gran (auto) (0.00-0.03) X10*3/uL Absolute Neuts (auto) (2.0-8.3) x10*3/uL Absolute Nucleated RBC (0.0-0.012) X10*3/uL Nucleated RBC % (auto) (0.0-0.2) /100WBC Urine Color YELLOW Urine Appearance CLEAR Urine pH 6.5 (5.0-8.0) Ur Specific [place] 1.010 (1.005-1.025) Urine Protein NEG (NEG-TRACE) MG/DL Urine Glucose (UA) NEG (NEG) MG/DL Urine Ketones NEG (NEG) MG/DL Urine Blood 3+ H (NEG) Urine Nitrite NEG (NEG) Ur Leukocyte Esterase 1+ H (NEG) Urine RBC 0-2 (0) /HPF Urine WBC 0-2 (0-4) /HPF Ur Squamous Epith Cells 3+ /LPF Urine Bacteria 1+ /LPF Urine Test (NEGATIVE) Urine Opiates Screen Not Detected (Not Detect) Urine Fentanyl Screen POSITIVE H (Not Detect) Ur Barbiturates Screen Not Detected (Not Detect) Ur Phencyclidine Scrn Not Detected (Not Detect) Ur Amphetamines Screen Not Detected (Not Detect) U Benzodiazepines Scrn Not Detected (Not Detect) [place] (0.60-1.20) mmol/L Urine Cocaine Screen Not Detected (Not Detect) U Marijuana (THC) Screen POSITIVE H (Not Detect) COVID-19 (RAFAL) Negative (Negative) COVID-19 Clin Com See Note 10/19/21 10/19/21 10/19/21 Range/Units 21:07 23:34 23:34 WBC 10.9 H (4.8-10.8) X10*3/uL RBC 3.85 L (4.20-5.50) X10*6/uL Hgb 10.4 L (12.0-16.0) g/dl Hct 32.3 L (37.0-47.0) % MCV 83.9 (80.0-98.0) fL MCH 27.0 (27.0-33.0) pg MCHC 32.2 (31.0-35.0) g/dl RDW 16.1 H (11.0-16.0) % Plt Count 333 (160-400) X10*3/uL MPV 10.6 (9.4-12.3) fL Immature Gran % (Auto) 0.3 (0.0-0.4) % Neut % (Auto) 71.8 (45-73) % Lymph % (Auto) 22.3 (20-40) % [place] % (Auto) 4.8 (2-11) % Eos % (Auto) 0.6 (0-4) % Baso % (Auto) 0.2 (0-2) % Lymph # (Auto) 2.4 (1.2-4.9) X10*3/uL [place] # (Auto) 0.5 (0.1-1.2) X10*3/uL Eos # (Auto) 0.1 (0.0-0.4) X10*3/uL Baso # (Auto) 0.0 (0.0-0.2) X10*3/uL Abs Immat Gran (auto) 0.03 (0.00-0.03) X10*3/uL Absolute Neuts (auto) 7.8 (2.0-8.3) x10*3/uL Absolute Nucleated RBC 0.000 (0.0-0.012) X10*3/uL Nucleated RBC % (auto) 0.0 (0.0-0.2) /100WBC Urine Color Urine Appearance Urine pH (5.0-8.0) Ur Specific [place] (1.005-1.025) Urine Protein (NEG-TRACE) MG/DL Urine Glucose (UA) (NEG) MG/DL Urine Ketones (NEG) MG/DL Urine Blood (NEG) Urine Nitrite (NEG) Ur Leukocyte Esterase (NEG) Urine RBC (0) /HPF Urine WBC (0-4) /HPF Ur Squamous Epith Cells /LPF Urine Bacteria /LPF Urine Test NEGATIVE (NEGATIVE) Urine Opiates Screen (Not Detect) Urine Fentanyl Screen (Not Detect) Ur Barbiturates Screen (Not Detect) Ur Phencyclidine Scrn (Not Detect) Ur Amphetamines Screen (Not Detect) U Benzodiazepines Scrn (Not Detect) [place] 0.68 (0.60-1.20) mmol/L Urine Cocaine Screen (Not Detect) U Marijuana (THC) Screen (Not Detect) COVID-19 (RAFAL) (Negative) COVID-19 Clin Com Procedures Laceration Laceration 1: Site: upper extremity Side (If applicable): left Size (cm): 3 Description: linear Depth: simple, single layer Local Anesthetic: lidocaine 2% Amount of anesthesia used (mL): 5 Pre-repair: wound explored and irrigated extensively Skin layer closed with: vicryl Size (cm): 4-0 Number of sutures: 3 Technique: simple, interrupted Critical Care Time Critical Care Time Critical Care Time: No Discharge Plan Discharge Clinical Impression: Depression, Laceration of left forearm Patient Disposition: Home, Self-Care Additional Instructions: Take your medications as prescribed. If you were prescribed antibiotics today, it is important that you take your medication to their entirety, do not skip any doses, do not finish them early. Follow-up with your primary care provider this week.Please follow-up with your psychiatrist and therapist as well. Return to the emergency department with new or worsening symptoms. Such as suicidal ideation, homicidal ideation, self cutting, worsening anxiety, depression, chest pain, shortness of breath, nausea, vomiting, fevers, chills. Return in 7-10 days for suture removal. In case of emergency call 911 Prescriptions: No Action omeprazole 20 mg capsule,delayed release(DR/EC) 20 mg PO DAILY 0RF cetirizine 10 mg Tablet 10 mg PO DAILY 0RF lorazepam 1 mg tablet 1 mg PO TID PRN (Reason: Anxiety/Restlessness ) 0RF topiramate 25 mg tablet 1 tab PO BID 0RF fluticasone propion-salmeterol [Advair Diskus] 250-50 mcg/dose blister with device 1 puff inhalation BID 0RF duloxetine 60 mg capsule,delayed release(DR/EC) 1 cap PO QAM 0RF nicotine (polacrilex) [Nicorette] 2 mg gum 2 mg buccal Q2H 30 Days Qty: 100 0RF diphenhydramine HCl [Banophen] 50 mg capsule 2 cap PO BEDTIME 0RF ferrous sulfate 325 mg (65 mg iron) tablet,delayed release (DR/EC) 1 tab PO QAM 0RF fluticasone propionate 50 mcg/actuation spray,suspension 2 spray intranasal DAILY 0RF prazosin 5 mg Capsule 20 mg PO BEDTIME 30 Days Qty: 120 0RF Protocol: Hold for SBP< HOLD for SBP < : 90 mirtazapine 30 mg Tablet 30 mg PO BEDTIME 30 Days Qty: 30 0RF trazodone 50 mg tablet 100 mg PO BEDTIME PRN (Reason: Insomnia) 0RF hydroxyzine pamoate 50 mg capsule 1 cap PO BID PRN (Reason: anxiety) 0RF albuterol sulfate 2.5 mg /3 mL (0.083 %) Solution For Nebulization 2.5 mg INHALATION Q4H PRN (Reason: Shortness Of Breath) 0RF acetaminophen 500 mg Tablet 500 mg PO Q6H PRN (Reason: Pain (Scale Score 1-3)) 0RF benztropine 0.5 mg Tablet 0.5 mg PO BID 30 Days Qty: 60 0RF haloperidol 5 mg Tablet 5 mg PO TID 30 Days Qty: 90 0RF haloperidol decanoate 50 mg/mL Solution 75 mg IM Q28D@1300 28 Days Qty: 1.5 0RF ammonium lactate 12 % Cream 1 appl topical BID PRN (Reason: Dry Skin) 30 Days Qty: 140 0RF Protocol: Apply to: Apply to: bilateral feet Referrals: Carroll Gaviria MD [Primary Care Provider] - 2 days
[2021-10-19 21:20] LABS: Appearance Urine CLEAR; Color Urine YELLOW; Glucose Urine UA NEG (NEG); Leukocyte Esterase Urine 1+ (NEG); Nitrite Urine NEG (NEG); PH 6.5 (5.0-8.0); Urine Blood 3+ (NEG); Urine Ketones NEG (NEG); Urine Protein NEG (NEG-TRACE)
[2021-10-19 21:22] LABS: UPreg QC Valid YES; Urine Pregnancy NEGATIVE (NEGATIVE)
[2021-10-19 21:27] LABS: Squamous Epithelial Cell Urine 3+ /LPF
[2021-10-19 21:28] LABS: Bacteria Urine 1+ /LPF; RBC Urine 0-2 /HPF (0); WBC Urine 0-2 /HPF (0-4)
--- NOTE | 2021-10-19 21:33 | PHA.MEDREC ---
Pharmacy Consult ? Medication ReconciliatION Nurse has completed the medication reconciliation. Per Drew pt said she stopped taking lithium
[2021-10-19 21:43] LABS: Amphetamine Screen Urine Not Detected (Not Detect); Barbiturates, Urine Not Detected (Not Detect); Benzodiazepines Screen Urine Not Detected (Not Detect); Cannabinoid Screen Urine POSITIVE (Not Detect); Cocaine Screen Urine Not Detected (Not Detect); Fentanyl, urine POSITIVE (Not Detect); Opiate Screen Urine Not Detected (Not Detect); Phencyclidine Screen Urine Not Detected (Not Detect)
[2021-10-19 22:00] VITALS: BP 115/56; PULSE 92; RESP 16; TEMP 36.3; O2SAT 96
[2021-10-19 22:02] LABS: COVID-19 Test Negative (Negative); IDNOW Serial# 16C4AD1C
[2021-10-19] MEDS: Lidocaine HCl 2 % MPF 5 ML VIAL SUBCUT (22:21)
[2021-10-19 23:39] LABS: Basophils Percent Auto 0.2 % (0-2); Eosinophils Absolute Auto 0.1 X10*3/uL (0.0-0.4); Eosinophils Percent Auto 0.6 % (0-4); Hematocrit 32.3 % (37.0-47.0); Hemoglobin 10.4 g/dl (12.0-16.0); Imm Gran Abs Auto 0.03 X10*3/uL (0.00-0.03); Imm Gran Pct Auto 0.3 % (0.0-0.4); Lymphocytes Absolute Auto 2.4 X10*3/uL (1.2-4.9); Lymphocytes Percent Auto 22.3 % (20-40); MANUAL DIFF FLAG NO; Mean Corpuscular HGB Conc 32.2 g/dl (31.0-35.0); Mean Corpuscular Volume 83.9 fL (80.0-98.0); Mean Platelet Volume 10.6 fL (9.4-12.3); Monocytes Absolute Auto 0.5 X10*3/uL (0.1-1.2); Monocytes Percent Auto 4.8 % (2-11); Neutrophils Absolute Auto 7.8 x10*3/uL (2.0-8.3); Neutrophils Percent Auto 71.8 % (45-73); Platelet Count 333 X10*3/uL (160-400); Red Blood Count 3.85 X10*6/uL (4.20-5.50); Red Cell Distribution Width 16.1 % (11.0-16.0); White Blood Count 10.9 X10*3/uL (4.8-10.8)
--- NOTE | 2021-10-19 23:39 | MHC.CARE ---
CARE team support requested by ED provider for pt who arrived to ED via EMS after engaging in self harm via cutting and feeling that she cut too much and would need to get stitches. She received one suture one of the lacerations. CARE team was contacted by [facility] earlier this evening, and the unit staff reported that the pt had called and wanted to speak with someone about thoughts she was having about self harm. When CARE asked about this, the pt reported that she just wanted to talk to someone and that crisis doesn't usually give her the time to do so. Pt reported that she has been struggling with her anger for the past couple weeks, and tonight she was experiencing both sadness and anger when she began to think about her sister's murder and that her nephew will never see his mother again. She shared that she had been listening to a song this afternoon called Love is Blind by Yana, which she reported describes a situation that is similar to what her sister had went through. Pt denied experiencing SI/HI/AVH and denied wanting to inflict any further harm to herself at this time. She reported that she has an appointment with her therapist at 10am tomorrow morning, which she is looking forward to, and she's excited to use the heavy weight punching bag that the fpc purchased for her so that she can try to better manage anger. At this time pt does not require further psychiatric assessment. Recommendation was discussed with ED provider Milad SOLOMON.
[2021-10-19 23:51] LABS: Lithium 0.68 mmol/L (0.60-1.20)
[2021-10-19 23:56] LABS: Ethanol < 10 mg/dL
[2021-10-19 23:58] LABS: Anion Gap 9 (12-20); Blood Urea Nitrogen 9 mg/dL (9-16); Calcium 9.3 mg/dL (8.4-10.2); Carbon Dioxide 20 mmol/L (22-29); Chloride 113 mmol/L (96-108); Estimated Glomerular Filt Rate > 60; Glucose Random 114 mg/dL (60-115); Potassium 3.9 mmol/L (3.3-5.1); Sodium 138 mmol/L (135-145)
== END 2021-10-20 00:47 | disposition home or self-care (01) ==
PROVIDERS: Physician Assistant; Emergency Provider Internal Medicine; PCP Pediatrics
DX: F33.1 Major depressive disorder, recurrent, moderate (principal); S51.812A Laceration without foreign body of left forearm, initial encounter; X78.1XXA Intentional self-harm by knife, initial encounter; Y93.9 Activity, unspecified; Y92.9 Unspecified place or not applicable; Y99.9 Unspecified external cause status; F17.210 Nicotine dependence, cigarettes, uncomplicated; Z20.822 Contact with and (suspected) exposure to COVID-19; Z71.6 Tobacco abuse counseling; Z79.899 Other long term (current) drug therapy
CPT/HCPCS: 12002; 36415; 80048; 80178; 80307; 81001; 81025; 82077; 85025; 87635; 96372; 99283; 99284

== ENCOUNTER 2021-10-20 16:46 | Emergency (ER) | payer OTHER, SELFPAY ==
[2021-10-20 16:51] VITALS: BP 127/82; PULSE 98; RESP 20; TEMP 36.9; O2SAT 97; BMI 49.8
--- NOTE | 2021-10-20 18:06 | ED.PSYCH ---
HPI - Psych General Chief Complaint: Psychiatric Symptoms Stated Complaint: Crisis Time Seen by Provider: 10/20/21 17:07 Source: patient and EMS Mode of arrival: EMS Limitations: no limitations History of Present Illness HPI Narrative: Patient comes to the emergency room via EMS for suicidal ideation. Patient states that she has been dealing with psychology associate, patient states that the murder case of her sister is coming up. Patient was seen here yesterday for lacerations to the forearms. Related Data Home Medications Medication Instructions Recorded Confirmed omeprazole 20 mg capsule,delayed 20 mg PO DAILY 11/29/20 10/20/21 release cetirizine 10 mg tablet 10 mg PO DAILY 12/24/20 10/20/21 lorazepam 1 mg tablet 1 mg PO TID PRN 03/30/21 10/20/21 fluticasone 250 mcg-salmeterol 50 1 puff INHALATION BID 08/02/21 10/20/21 mcg/dose blistr powdr for inhalation (Advair Diskus) topiramate 25 mg tablet 1 tab PO BID 08/02/21 10/20/21 duloxetine 60 mg capsule,delayed 1 cap PO QAM 08/03/21 10/20/21 release acetaminophen 500 mg tablet 500 mg PO Q6H PRN 09/01/21 10/20/21 albuterol sulfate 2.5 mg INHALATION Q4H PRN 09/01/21 10/20/21 hydroxyzine pamoate 50 mg capsule 1 cap PO BID PRN 09/01/21 10/20/21 trazodone 50 mg tablet 100 mg PO BEDTIME PRN 09/01/21 10/20/21 diphenhydramine HCl 50 mg capsule 2 cap PO BEDTIME 10/03/21 10/20/21 (Banophen) ferrous sulfate 325 mg (65 mg 1 tab PO QAM 10/03/21 10/20/21 iron) tablet,delayed release fluticasone propionate 50 2 spray INTRANASAL DAILY 10/03/21 10/20/21 mcg/actuation nasal spray,suspension lithium carbonate 300 mg tablet 1 tab PO BID 10/20/21 10/20/21 Previous Rx's Medication Instructions Recorded nicotine (polacrilex) 2 mg gum 2 mg BUCCAL Q2H 30 Days #100 ea 08/11/21 (Nicorette) ammonium lactate 12 % topical cream 1 appl TOPICAL BID PRN 30 Days 09/22/21 #140 g benztropine 0.5 mg tablet 0.5 mg PO BID 30 Days #60 tab 09/22/21 haloperidol 5 mg tablet 5 mg PO TID 30 Days #90 tab 09/22/21 haloperidol decanoate 50 mg/mL 75 mg (1.5 mL) IM Q28D@1300 28 09/22/21 intramuscular solution Days #1.5 ml mirtazapine 30 mg tablet 30 mg PO BEDTIME 30 Days #30 tab 10/09/21 prazosin 5 mg capsule 20 mg PO BEDTIME 30 Days #120 cap 10/09/21 Allergies Allergy/AdvReac Type Severity Reaction Status Date / Time carbamazepine [From TEGRETOL] AdvReac Unknown NAUSEA & Verified 06/01/21 20:14 VOMITING Review of Systems Review of Systems: Constitutional : No Weight loss, No Fever, No Chills, No Night Sweats, No Fatigue, No Malaise ENT/Mouth : No Hearing loss, No Ear Pain, No Nasal Congestion, No Sinus Pain, No Hoarseness, No sore throat, No Rhinorrhea, No Swallowing Difficulty Eyes: No Eye Pain, No Swelling, No Redness, No Foreign Body, No Discharge, No Vision Changes Cardiovascular : No Chest Pain, No SOB, No Dyspnea on Exertion, No Orthopnea, No Edema, No Palpitations Respiratory : No Cough, No Sputum, No Wheezing, No Smoke Exposure, No Dyspnea Gastrointestinal : No Nausea, No Vomiting, No Diarrhea, No Constipation, No abdominal Pain, No Hematochezia, No Melena Genitourinary : no irregular bleeding, No Dysuria, No Urinary Frequency, No Hematuria, No Urinary Incontinence, No Urgency, No Flank Pain, No Urinary Flow Changes, No Hesitancy Musculoskeletal : No joint pain, No Myalgias, No Joint Swelling Skin : No Skin Lesions, No rash Neuro : No Weakness, No Numbness, No Paresthesias, No Loss of Consciousness, No Dizziness, No Headache Psych : Complaining of anxiety and depression and suicidal ideation, denies homicidal ideation Heme/Lymph: No Bruising, No Bleeding,No Lymphadenopathy Endocrine : No Polyuria, No Polydipsia, No Temperature Intolerance PMFSH Past Medical History Medical History Acute post-traumatic stress disorder Adjustment disorder Anxiety Asthma Borderline personality disorder Chronic post-traumatic stress disorder (PTSD) COPD (chronic obstructive pulmonary disease) Depression GERD (gastroesophageal reflux disease) Increased BMI Injury, self-inflicted Intentional self-harm PTSD (post-traumatic stress disorder) Recurrent major depression-severe Schizoaffective disorder Self-harming behavior Suicidal ideation Suicidal ideation Social History Social History Household Members: Other Household Members Other:: prison Housing: Other Housing Other:: prison Do you presently have visiting nurse or other home services: No Alcohol intake: unknown Patient Tobacco Use Status: Former Tobacco user Quit Date: 02-19-21 Tobacco use type: Cigarette Cigarette Packs Per Day: 1 Cigarettes Per Day: 20.0 Years Smoked: 17 e-Cigarette/Vaping Use: Never Used Second Hand Smoke Exposure: Yes Substance Use Type: Marijuana Advance Directives: No Advance Directives Information Provided: No service: No Sexual orientation: Don't Know Physical Exam Vital Signs: Vital Signs: Last Vital Signs Temp 99.6 F 10/20/21 18:49 Pulse 78 10/20/21 19:04 Resp 18 10/20/21 19:19 BP 125/76 10/20/21 19:04 Pulse Ox 96 10/20/21 19:04 BMI result Body Mass Index 49.8 Const: Other: Appearance: Alert. Oriented X3. No acute distress. Eyes: Pupils equal, round and reactive to light. ENT: Pharynx normal. Neck: Normal inspection. Neck supple. No lymph nodes noted. No crepitus CVS: Normal heart rate and rhythm. Pulses normal. Normal S1 and S2 Respiratory: No respiratory distress. Breath sounds normal. No Wheezing. No rales Abdomen: Soft and nontender. No rigidity. No distention. good BS x4 Skin: Skin warm and dry. Normal skin color. Normal skin turgor. Extremities: No lower extremity edema. No Lacerations. No Rash Neuro: Oriented X 3. No motor deficit. No sensory deficit. Moving all extermities. No slurred speech. Cranial nerves 2-12 grossly intact Psych: Alert, oriented, avoids eye contact Course Course Course Narrative: Behavioral health network consult is pending. Physician observation started at 18:10 I was informed by the patient's nurse, all of a sudden patient became very agitated, patient had to be held down. Patient received 2 of Ativan and 5 of Haldol. 20:50, patient is sleeping comfortably, on a one-to-one. [facility] consult pending. Tomorrow, 10/21/2021, is a trial for her sister's murder. This is 1 of patient's triggers for suicidal ideation and cutting. Patient has been here multiple times anticipating tomorrow's date. I would suggest that the patient stays either in the Behavioral Health pod or in the psych unit for this date. [facility] - Psych Lab Data Labs: Lab Results 10/20/21 10/20/21 10/20/21 Range/Units 19:19 19:58 20:00 Urine Test NEGATIVE (NEGATIVE) Urine Opiates Screen Not Detected (Not Detect) Urine Fentanyl Screen POSITIVE H (Not Detect) Ur Barbiturates Screen Not Detected (Not Detect) Ur Phencyclidine Scrn Not Detected (Not Detect) Ur Amphetamines Screen Not Detected (Not Detect) U Benzodiazepines Scrn Not Detected (Not Detect) Urine Cocaine Screen Not Detected (Not Detect) U Marijuana (THC) Screen POSITIVE H (Not Detect) COVID-19 (RAFAL) Negative (Negative) COVID-19 Clin Com See Note Discharge Plan Discharge Clinical Impression: Suicidal ideation Patient Disposition: Still a Patient Prescriptions: No Action omeprazole 20 mg capsule,delayed release(DR/EC) 20 mg PO DAILY 0RF cetirizine 10 mg Tablet 10 mg PO DAILY 0RF lorazepam 1 mg tablet 1 mg PO TID PRN (Reason: Anxiety/Restlessness ) 0RF topiramate 25 mg tablet 1 tab PO BID 0RF fluticasone propion-salmeterol [Advair Diskus] 250-50 mcg/dose blister with device 1 puff inhalation BID 0RF duloxetine 60 mg capsule,delayed release(DR/EC) 1 cap PO QAM 0RF nicotine (polacrilex) [Nicorette] 2 mg gum 2 mg buccal Q2H 30 Days Qty: 100 0RF diphenhydramine HCl [Banophen] 50 mg capsule 2 cap PO BEDTIME 0RF ferrous sulfate 325 mg (65 mg iron) tablet,delayed release (DR/EC) 1 tab PO QAM 0RF fluticasone propionate 50 mcg/actuation spray,suspension 2 spray intranasal DAILY 0RF prazosin 5 mg Capsule 20 mg PO BEDTIME 30 Days Qty: 120 0RF Protocol: Hold for SBP< HOLD for SBP < : 90 mirtazapine 30 mg Tablet 30 mg PO BEDTIME 30 Days Qty: 30 0RF trazodone 50 mg tablet 100 mg PO BEDTIME PRN (Reason: Insomnia) 0RF hydroxyzine pamoate 50 mg capsule 1 cap PO BID PRN (Reason: anxiety) 0RF albuterol sulfate 2.5 mg /3 mL (0.083 %) Solution For Nebulization 2.5 mg INHALATION Q4H PRN (Reason: Shortness Of Breath) 0RF acetaminophen 500 mg Tablet 500 mg PO Q6H PRN (Reason: Pain (Scale Score 1-3)) 0RF benztropine 0.5 mg Tablet 0.5 mg PO BID 30 Days Qty: 60 0RF haloperidol 5 mg Tablet 5 mg PO TID 30 Days Qty: 90 0RF haloperidol decanoate 50 mg/mL Solution 75 mg IM Q28D@1300 28 Days Qty: 1.5 0RF ammonium lactate 12 % Cream 1 appl topical BID PRN (Reason: Dry Skin) 30 Days Qty: 140 0RF Protocol: Apply to: Apply to: bilateral feet lithium carbonate 300 mg tablet 1 tab PO BID 0RF
[2021-10-20 18:19] VITALS: BP 131/77; RESP 16
[2021-10-20] MEDS: Haloperidol Lactate 5 MG/ML VIAL IM (18:19)
[2021-10-20] MEDS: LORazepam 2 MG/ML VIAL IM (18:19)
--- NOTE | 2021-10-20 18:20 | PC.NURSE ---
security at bedside, per provider order pt medicated with haldol/ativan im, pt tolerated well and will be moving to the pod with security
[2021-10-20 18:34] VITALS: RESP 18
[2021-10-20 18:49] VITALS: BP 119/80; PULSE 82; RESP 18; TEMP 37.6; O2SAT 98
[2021-10-20 19:04] VITALS: BP 125/76; PULSE 78; RESP 18; O2SAT 96
[2021-10-20 19:19] VITALS: RESP 18
[2021-10-20 19:39] LABS: COVID-19 Test Negative (Negative)
[2021-10-20 20:09] LABS: UPreg QC Valid YES; Urine Pregnancy NEGATIVE (NEGATIVE)
[2021-10-20 20:24] LABS: Amphetamine Screen Urine Not Detected (Not Detect); Barbiturates, Urine Not Detected (Not Detect); Benzodiazepines Screen Urine Not Detected (Not Detect); Cannabinoid Screen Urine POSITIVE (Not Detect); Cocaine Screen Urine Not Detected (Not Detect); Fentanyl, urine POSITIVE (Not Detect); Opiate Screen Urine Not Detected (Not Detect); Phencyclidine Screen Urine Not Detected (Not Detect)
--- NOTE | 2021-10-21 07:09 | PC.NURSE ---
patient appears to remain asleep at present respirations are even and unlabored, patient appears in no distress
--- NOTE | 2021-10-21 14:41 | MHC.CARE ---
CARE Team conducts a follow up call with pt after her discharge.? Pt reports she is doing ?Ok? and has been keeping herself occupied throughout the day since her discharge.? She reports being angry and upset after receiving a call from the DA regarding the continuation of the court case involving the killer of her sister.? She has thus far been able to effectively cope with the stress and emotional strain of the situation.? Pt reports feeling safe at this time. CARE Team reiterated the importance of pt ceasing the use of marijuana obtained from individuals other than a dispensary.? Pt stated that she understood and is going to do so. Pt reports sharing her safety plan [facility] who now have a copy.
== END 2021-10-21 11:43 | disposition home or self-care (01) ==
PROVIDERS: Emergency Provider Emergency Medicine
DX: R45.851 Suicidal ideations (principal); R45.1 Restlessness and agitation; F41.9 Anxiety disorder, unspecified; F32.A Depression, unspecified; F25.1 Schizoaffective disorder, depressive type; F60.3 Borderline personality disorder; F43.10 Post-traumatic stress disorder, unspecified; Z91.51 Personal history of suicidal behavior; Z72.89 Other problems related to lifestyle; Z63.4 Disappearance and death of family member; Z20.822 Contact with and (suspected) exposure to COVID-19; Z79.899 Other long term (current) drug therapy; F12.90 Cannabis use, unspecified, uncomplicated
CPT/HCPCS: 80307; 81025; 87635; 96372; 99283; 99285; J2060

== ENCOUNTER 2021-10-22 20:11 | Emergency (ER) | payer OTHER, SELFPAY ==
[2021-10-22 20:16] VITALS: BP 104/66; PULSE 96; RESP 18; TEMP 37.1; O2SAT 99; BMI 39.6
--- NOTE | 2021-10-22 20:38 | ED_ITS ---
HPI - Psych General Chief Complaint: Psychiatric Symptoms Stated Complaint: Crisis Source: patient Mode of arrival: ambulatory Limitations: no limitations History of Present Illness HPI Narrative: 36-year-old female presents for suicidal ideation, self-harm, and inability to cope with significant life stressors. MD complaint: suicidal ideation and feels depressed Onset (ago): year(s) Duration: constant History of same: Yes Relieving factors: none Context: significant life stressor Associated psychiatric symptoms: depression, suicidal ideation and racing thoughts Associated symptoms: insomnia Treatments prior to arrival: none If self harm: admits thoughts of self harm and self-inflicted trauma Related Data Home Medications Medication Instructions Recorded Confirmed omeprazole 20 mg capsule,delayed 20 mg PO DAILY 11/29/20 10/22/21 release cetirizine 10 mg tablet 10 mg PO DAILY 12/24/20 10/22/21 lorazepam 1 mg tablet 1 mg PO TID PRN 03/30/21 10/22/21 fluticasone 250 mcg-salmeterol 50 1 puff INHALATION BID 08/02/21 10/22/21 mcg/dose blistr powdr for inhalation (Advair Diskus) topiramate 25 mg tablet 1 tab PO BID 08/02/21 10/22/21 duloxetine 60 mg capsule,delayed 1 cap PO QAM 08/03/21 10/22/21 release acetaminophen 500 mg tablet 500 mg PO Q6H PRN 09/01/21 10/22/21 albuterol sulfate 2.5 mg INHALATION Q4H PRN 09/01/21 10/22/21 hydroxyzine pamoate 50 mg capsule 1 cap PO BID PRN 09/01/21 10/22/21 trazodone 50 mg tablet 100 mg PO BEDTIME PRN 09/01/21 10/22/21 diphenhydramine HCl 50 mg capsule 2 cap PO BEDTIME 10/03/21 10/22/21 (Banophen) ferrous sulfate 325 mg (65 mg 1 tab PO QAM 10/03/21 10/22/21 iron) tablet,delayed release fluticasone propionate 50 2 spray INTRANASAL DAILY 10/03/21 10/22/21 mcg/actuation nasal spray,suspension lithium carbonate 300 mg tablet 1 tab PO BID 10/20/21 10/22/21 Previous Rx's Medication Instructions Recorded nicotine (polacrilex) 2 mg gum 2 mg BUCCAL Q2H 30 Days #100 ea 08/11/21 (Nicorette) ammonium lactate 12 % topical cream 1 appl TOPICAL BID PRN 30 Days 09/22/21 #140 g benztropine 0.5 mg tablet 0.5 mg PO BID 30 Days #60 tab 09/22/21 haloperidol 5 mg tablet 5 mg PO TID 30 Days #90 tab 09/22/21 haloperidol decanoate 50 mg/mL 75 mg (1.5 mL) IM Q28D@1300 28 09/22/21 intramuscular solution Days #1.5 ml mirtazapine 30 mg tablet 30 mg PO BEDTIME 30 Days #30 tab 10/09/21 prazosin 5 mg capsule 20 mg PO BEDTIME 30 Days #120 cap 10/09/21 Allergies Allergy/AdvReac Type Severity Reaction Status Date / Time carbamazepine [From TEGRETOL] AdvReac Unknown NAUSEA & Verified 06/01/21 20:14 VOMITING Review of Systems Review of Systems: Constitutional: No Fever, No Chills ENT/Mouth: No Ear Pain, No Nasal Congestion, No sore throat Eyes: No Eye Pain, No Swelling, No Redness Cardiovascular: No Chest Pain, No SOB Respiratory: No Cough, No Sputum, No Dyspnea Gastrointestinal: No Nausea, No Vomiting, No Diarrhea, No Hematochezia, No Melena Genitourinary: No Dysuria, No Urinary Frequency, No Hematuria Musculoskeletal: No Myalgias Skin: No Skin Lesions, No rash Neuro: No Weakness, No Numbness, No Paresthesias, No Dizziness, No Headache Psych: positive Anxiety, positive Depression, positive SI Heme/Lymph: No Lymphadenopathy Endocrine: No Polyuria, No Polydipsia Yes all other systems are reviewed and are negative [facility] Past Medical History Attestation statement: The following information was validated with the patient. Source: old records reviewed Medical History Acute post-traumatic stress disorder Adjustment disorder Anxiety Asthma Borderline personality disorder Chronic post-traumatic stress disorder (PTSD) COPD (chronic obstructive pulmonary disease) Depression GERD (gastroesophageal reflux disease) Increased BMI Injury, self-inflicted Intentional self-harm PTSD (post-traumatic stress disorder) Recurrent major depression-severe Schizoaffective disorder Self-harming behavior Suicidal ideation Suicidal ideation Social History Social History Household Members: Other Household Members Other:: custodial Housing: Other Housing Other:: custodial Do you presently have visiting nurse or other home services: No Alcohol intake: never Patient Tobacco Use Status: Former Tobacco user Quit Date: 02-19-21 Tobacco use type: Cigarette Cigarette Packs Per Day: 1 Cigarettes Per Day: 20.0 Years Smoked: 17 e-Cigarette/Vaping Use: Never Used Second Hand Smoke Exposure: Yes Use of substances other than those prescribed or required for medical reasons: Yes Substance Use Type: Marijuana Substance Use Frequency: Occasionally Last Used Substance: Days (ago) Any prior treatment program specific to substance use: No Advance Directives: No Patient : No service: No Sexual orientation: Don't Know Physical Exam Vital Signs: Vital Signs: Last Vital Signs Temp 98.4 F 10/22/21 21:35 Pulse 90 10/22/21 21:35 Resp 18 10/22/21 21:50 BP 121/90 H 10/22/21 21:35 Pulse Ox 96 10/22/21 21:35 BMI result Body Mass Index 39.6 Appearance: Alert. Oriented X3. Moderate emotional distress. Sobbing. Eyes: Pupils equal, round and reactive to light. EOMI. Sclera nonicteric. ENT: Pharynx normal. Moist mucous membranes. Neck: Normal inspection. Neck supple. CVS: Normal heart rate and rhythm. Pulses normal. Respiratory: No respiratory distress. Breath sounds normal. Abdomen: Soft and nontender. Skin: Numerous superficial lacerations to bilateral arms, too numerous to count. One laceration has 3 sutures to the left forearm. Intact. No indication of infection to any wounds. Extremities: No lower extremity edema. Gait well-balanced well coordinated. Neuro: No motor deficit. No sensory deficit. Cranial nerves 2-12 intact. Course Course Course Narrative: 36-year-old female well known to this facility presents for suicidal ideation, self-harm, and inability to cope with significant life stressors. States that she was triggered because her sister's murder trial was delayed. Patient is very angry, and feels like the only option is suicide. Patient is inconsolable and sobbing. Patient is compliant with care. At this time patient states that she is not able to control herself. Order for IM Zyprexa, Ativan and Benadryl. Patient presented to this facility yesterday with similar circumstances and presentation. Patient required multiple behavior restraints. 00:04 patient medically cleared[address] Section [address] Care team evaluation for the morning. Physician observation at this time MDM - Psych Differential Diagnosis Differential diagnosis: Likely acute psychosis, suicidal ideation, depression, acute anxiety and post-traumatic stress disorder Medical Records Attestation: I reviewed the patient's medical records. Lab Data Attestation: I reviewed the patient's lab results. Labs: Lab Results 10/22/21 10/22/21 10/22/21 Range/Units 20:28 20:31 20:31 Urine Color YELLOW Urine Appearance CLEAR Urine pH 7.5 (5.0-8.0) Ur Specific [place] <= 1.005 (1.005-1.025) Urine Protein NEG (NEG-TRACE) MG/DL Urine Glucose (UA) NEG (NEG) MG/DL Urine Ketones NEG (NEG) MG/DL Urine Blood 1+ H (NEG) Urine Nitrite NEG (NEG) Ur Leukocyte Esterase NEG (NEG) Urine RBC 5-9 H (0) /HPF Urine WBC 0 (0-4) /HPF Ur Squamous Epith Cells 3+ /LPF Urine Bacteria TRACE /LPF Urine Test NEGATIVE (NEGATIVE) Urine Opiates Screen Not Detected (Not Detect) Urine Fentanyl Screen Not Detected (Not Detect) Ur Barbiturates Screen Not Detected (Not Detect) Ur Phencyclidine Scrn Not Detected (Not Detect) Ur Amphetamines Screen Not Detected (Not Detect) U Benzodiazepines Scrn Not Detected (Not Detect) Urine Cocaine Screen Not Detected (Not Detect) U Marijuana (THC) Screen POSITIVE H (Not Detect) COVID-19 (RAFAL) (Negative) COVID-19 Clin Com 10/22/21 Range/Units 20:32 Urine Color Urine Appearance Urine pH (5.0-8.0) Ur Specific [place] (1.005-1.025) Urine Protein (NEG-TRACE) MG/DL Urine Glucose (UA) (NEG) MG/DL Urine Ketones (NEG) MG/DL Urine Blood (NEG) Urine Nitrite (NEG) Ur Leukocyte Esterase (NEG) Urine RBC (0) /HPF Urine WBC (0-4) /HPF Ur Squamous Epith Cells /LPF Urine Bacteria /LPF Urine Test (NEGATIVE) Urine Opiates Screen (Not Detect) Urine Fentanyl Screen (Not Detect) Ur Barbiturates Screen (Not Detect) Ur Phencyclidine Scrn (Not Detect) Ur Amphetamines Screen (Not Detect) U Benzodiazepines Scrn (Not Detect) Urine Cocaine Screen (Not Detect) U Marijuana (THC) Screen (Not Detect) COVID-19 (RAFAL) Negative (Negative) COVID-19 Clin Com See Note Discharge Plan Discharge Clinical Impression: Suicidal ideation, Bipolar disorder, Depression Patient Disposition: Still a Patient Instructions: Bipolar Disorder (ED), Depression (ED), Help Prevent Suicide (ED), Suicide Prevention (ED) Additional Instructions: Please follow-up with psych patient Psychiatry as scheduled. Thank you for choosing this emergency department for evaluation. Please follow-up with primary care physician as needed. Return to the emergency department for any new, concerning, or worsening symptoms. Prescriptions: No Action omeprazole 20 mg capsule,delayed release(DR/EC) 20 mg PO DAILY 0RF cetirizine 10 mg Tablet 10 mg PO DAILY 0RF lorazepam 1 mg tablet 1 mg PO TID PRN (Reason: Anxiety/Restlessness ) 0RF topiramate 25 mg tablet 1 tab PO BID 0RF fluticasone propion-salmeterol [Advair Diskus] 250-50 mcg/dose blister with device 1 puff inhalation BID 0RF duloxetine 60 mg capsule,delayed release(DR/EC) 1 cap PO QAM 0RF nicotine (polacrilex) [Nicorette] 2 mg gum 2 mg buccal Q2H 30 Days Qty: 100 0RF diphenhydramine HCl [Banophen] 50 mg capsule 2 cap PO BEDTIME 0RF ferrous sulfate 325 mg (65 mg iron) tablet,delayed release (DR/EC) 1 tab PO QAM 0RF fluticasone propionate 50 mcg/actuation spray,suspension 2 spray intranasal DAILY 0RF prazosin 5 mg Capsule 20 mg PO BEDTIME 30 Days Qty: 120 0RF Protocol: Hold for SBP< HOLD for SBP < : 90 mirtazapine 30 mg Tablet 30 mg PO BEDTIME 30 Days Qty: 30 0RF trazodone 50 mg tablet 100 mg PO BEDTIME PRN (Reason: Insomnia) 0RF hydroxyzine pamoate 50 mg capsule 1 cap PO BID PRN (Reason: anxiety) 0RF albuterol sulfate 2.5 mg /3 mL (0.083 %) Solution For Nebulization 2.5 mg INHALATION Q4H PRN (Reason: Shortness Of Breath) 0RF acetaminophen 500 mg Tablet 500 mg PO Q6H PRN (Reason: Pain (Scale Score 1-3)) 0RF benztropine 0.5 mg Tablet 0.5 mg PO BID 30 Days Qty: 60 0RF haloperidol 5 mg Tablet 5 mg PO TID 30 Days Qty: 90 0RF haloperidol decanoate 50 mg/mL Solution 75 mg IM Q28D@1300 28 Days Qty: 1.5 0RF ammonium lactate 12 % Cream 1 appl topical BID PRN (Reason: Dry Skin) 30 Days Qty: 140 0RF Protocol: Apply to: Apply to: bilateral feet lithium carbonate 300 mg tablet 1 tab PO BID 0RF
[2021-10-22 20:42] LABS: UPreg QC Valid YES; Urine Pregnancy NEGATIVE (NEGATIVE)
[2021-10-22 20:42] LABS: Appearance Urine CLEAR; Color Urine YELLOW; Glucose Urine UA NEG (NEG); Leukocyte Esterase Urine NEG (NEG); Nitrite Urine NEG (NEG); PH 7.5 (5.0-8.0); Specific Gravity - Urine <= 1.005 (1.005-1.025); Urine Blood 1+ (NEG); Urine Ketones NEG (NEG); Urine Protein NEG (NEG-TRACE)
[2021-10-22 20:45] LABS: Squamous Epithelial Cell Urine 3+ /LPF; WBC Urine 0 /HPF (0-4)
[2021-10-22 20:46] LABS: Bacteria Urine TRACE /LPF
[2021-10-22 20:50] VITALS: RESP 20
[2021-10-22] MEDS: OLANZapine 10 MG VIAL IM (20:50)
[2021-10-22] MEDS: LORazepam 2 MG/ML VIAL IM (20:50)
[2021-10-22] MEDS: diphenhydrAMINE HCL 50 MG/ML VIAL IM (20:50)
[2021-10-22 20:54] LABS: COVID-19 Test Negative (Negative)
[2021-10-22 20:57] LABS: Amphetamine Screen Urine Not Detected (Not Detect); Barbiturates, Urine Not Detected (Not Detect); Benzodiazepines Screen Urine Not Detected (Not Detect); Cannabinoid Screen Urine POSITIVE (Not Detect); Cocaine Screen Urine Not Detected (Not Detect); Fentanyl, urine Not Detected (Not Detect); Opiate Screen Urine Not Detected (Not Detect); Phencyclidine Screen Urine Not Detected (Not Detect)
[2021-10-22 21:05] VITALS: RESP 20
[2021-10-22 21:20] VITALS: RESP 18
[2021-10-22 21:35] VITALS: BP 121/90; PULSE 90; RESP 18; TEMP 36.9; O2SAT 96
[2021-10-22 21:50] VITALS: RESP 18
--- NOTE | 2021-10-22 23:11 | PC.NURSE ---
Patient is extremely upset, agitated, frustrated, and mad over her sister's murder trial, patient engaged in self harm behavior by banging her head to wall, provider notified/ordered Olanzapine 10 mg IM, Ativan 2 mg IM and Benadryl 50 mg IM, administered at 2250 with pending effect, patient is on 1:1 for observation, patient currently calm, will continue to monitor.
--- NOTE | 2021-10-23 06:19 | PC.NURSE ---
Patient slept though the night, no distress observed/reported, behavior non concerning at this time, medication compliant, patient is on 1:1 for observation, care team will assess the patient in the morning, will continue to monitor.
[2021-10-23] MEDS: Omeprazole 20 MG CAPSULE.DR PO (06:40)
--- NOTE | 2021-10-23 07:11 | PC.NURSE ---
patient appears to remain asleep at present, just prior to t/w's arrival patient stated to staff she did not feel safe enough to have her tray at present maintains safe behavior
[2021-10-23] MEDS: Benztropine Mesylate 0.5 MG TABLET PO ×2 (09:22→20:56)
[2021-10-23] MEDS: Loratadine 10 MG TABLET PO (09:22)
[2021-10-23] MEDS: Lithium Carbonate 300 MG CAPSULE PO ×2 (09:22→20:56)
[2021-10-23] MEDS: Ferrous Sulfate 324 MG TABLET.DR PO (09:22)
[2021-10-23] MEDS: Topiramate 25 MG TABLET PO ×2 (09:22→20:56)
[2021-10-23] MEDS: HaloperidoL 5 MG TABLET PO ×2 (09:22→20:56)
[2021-10-23] MEDS: DULoxetine HCl 60 MG CAPSULE.DR PO (09:22)
[2021-10-23] MEDS: LORazepam 1 MG TABLET PO ×2 (09:30→20:56)
[2021-10-23] MEDS: hydrOXYzine HCL 50 MG TABLET PO (09:30)
[2021-10-23] MEDS: OLANZapine ODT 10 MG TAB.RAPDIS TRANSLINGU (10:01)
--- NOTE | 2021-10-23 10:01 | PC.NURSE ---
patient remains on 1:1 status, has been gesturing for a period intermittently but less than 30 minutes tapping head on wall it does not appear as if she is intending to injure herself.
--- NOTE | 2021-10-23 12:14 | PC.NURSE ---
patient continues to gesture while awake, patient asked if she wanted addl medications to help.
--- NOTE | 2021-10-23 14:14 | MHC.CARE ---
CARE Team conducts a statewide bed[place] for this pt and was unable to secure placement.
--- NOTE | 2021-10-23 14:26 | MHC.CARE ---
Bedsearch exhausted. Referrals made to following facilities, [facility], and [facility]. Determination for admission eligibility has not yet been made. CARE Team waiting for call back.
--- NOTE | 2021-10-23 14:54 | HE.PHANOTE ---
Spoke with patient nursing home. Next dose of haldoperidol IM injection is scheduled for 11/12/21 Edie Solorio, JennyferD
--- NOTE | 2021-10-23 20:21 | MHC.CARE ---
CARE Team is meets with pt, who requested to speak with CARE Team. Pt has been observed sleeping in the pod throughout the day. Pt reports that she is feeling much better and she would like [facility] be [facility] to [facility]. Pt denies SI and self harm urges. Pt acknowledges that she is going through a particularly difficult time due to the start of her sister's murder trial. Pt expresses that she is feeling better after having gotten some sleep and additional support. Pt has an extensive trauma hx. Her risk of suicide and self injury is chronic and would not be mitigated by an inpt psych admission. Pt is a strong self advocate, and she agrees to return to ED or reach out to crisis for support as she has done many times in the past. CARE Team will conduct a follow up phone call with pt tomorrow early afternoon, which pt identified as being a good support.CARE Team recommends discharges, which ED provider, Chichi Fairbanks NP is in agreement with. CARE Team is awaiting a call back from aviation manager.
[2021-10-23] MEDS: traZODone HCL 100 MG TABLET PO (20:56)
[2021-10-23] MEDS: Mirtazapine 30 MG TABLET PO (20:56)
[2021-10-23] MEDS: diphenhydrAMINE HCL 25 MG TABLET 100 MG PO (20:56)
--- NOTE | 2021-10-24 14:32 | MHC.CARE ---
CARE Team contacts pt as a follow up to her recent ER visit.? Pt reports that she is doing well.? She sounded upbeat, and stated that she feels ?Good.?? She reports having been out shopping earlier today and is now awaiting her Mother?s arrival at the prison so she can go out to dinner with her.? Pt stated that she may do some shopping after dinner.? Prior to our phone call, pt stated that she had gone out shopping.? This evening, pt has plans to watch TV and movies until about 10:30PM and appears to be looking forward to some new seasons of her favorite TV shows. Pt stated that she has been angry lately regarding her father.? The anniversary of his is close by and there is still some unresolved anger related to his behavior in her youth.? Pt stated that he avoided incarceration by overdosing on heroin; she never got the closure she felt she deserved.? She reports that she has been asking herself why no one wants her, feeling as though she was unwanted by her biological parents, staff at group homes etc.? She stated that these thoughts have been at the forefront a great deal lately, she stated that she feels like these thoughts are in part irrational but she cannot help but feel that way.? She reports that while in some part they are irrational that there is a large part that is grounded in her experiences.? She also expressed frequent thoughts of ?Why didn?t anyone protect me?? She reports not doing well at nighttime, stating it is mostly male staff and she at times feels nervous.? She expressed ?I hate men, but I love them (men)as well.?? She stated that she knows she is safe with the male staff at the prison and stated that she knows she is safe but she does at times grow nervous.? This nervous feeling happens suddenly with no apparent trigger. She will experience such feelings on the bus, at the prison, while out with her Mother, there doesn?t appear to be any specific situation which causes the feelings of nervousness.? She attributes her frequent ER visits of late to her father?s upcoming date and the murder trial for her sister?s murder.? She expressed that she was unaware that a trial was such a lengthy process and that has been a stressor for her. Pt discussed her self harm cutting behavior.? She stated she does it in secret and will most often only tell staff if she has cut herself deep. Most often the cutting is superficial and she doesn?t usually share it with staff.? Pt stated that at times she does because she wants to see if someone cares.? She often feels like no one does and feels ?Like I?m a problem?. Pt stated that when she is heading for a crisis she usually becomes ?Really mean?, quiet, and tends to dissociate.? This can happen any time without any seeming trigger.? She does suggest that it stems from her anger with her father.? She said that her go to coping mechanisms are Reading, watching the [employer] Channel, watching a good movie, and listening to music. CARE Team suggested that an evening check in call may be beneficial; pt stated that she believes it would be as well.? CARE Team (upon securing permission) discussed pt?s plans for the remainder of the day and advised them that CARE Team will conduct an evening check in call with her.? Staff stated that they will make the oncoming shift aware.
--- NOTE | 2021-10-24 17:11 | MHC.CARE ---
This typewriter mechanic received a call from Pt. She reported that she was upset that another house mate over heard her pervious conversation with a CARE Team Clinician. She reported that due to such none of her house mates feel comfortable with her. She reported that she wanted to pack up her belongings, leave the house, and then cut deeply. This typewriter mechanic spent hour trying to calm her down and redirect her to her coping strategies that was mentioned in a previous note, ie. listening to music, watching pilar [employer] and so on. She stated those tool where not useful at this time. We discussed staff that were useful to her and they can be assistance. While she was on the phone she text her Charge Preparation Technician, Louis how she was feeling. We also discussed her want to go to the ER, but she stated that she did not have a ride. At this point the call was disconnected. This typewriter mechanic then called the House and spoke to Pt. She again stated that she was not feeling well and wanted to slash her wrists. This typewriter mechanic then spoke to Shelter Staff, Todd. This typewriter mechanic informed Todd of Pt.s current state and that she wanted to go to the Emergency Room. Todd reported that he would try and work with Pt to calm her down, and if needed send her to the ER. This typewriter mechanic then safety planned with Todd that if she was to leave the Shelter, that the police should be called, due to her threats that he was going to leave her Shelter and slash her wrists.
== END 2021-10-23 21:45 | disposition home or self-care (01) ==
PROVIDERS: Nurse Practitioner Family; Emergency Provider Emergency Medicine Emergency Medical Services
DX: F33.1 Major depressive disorder, recurrent, moderate (principal); R45.851 Suicidal ideations; F17.210 Nicotine dependence, cigarettes, uncomplicated; F12.90 Cannabis use, unspecified, uncomplicated; Z20.822 Contact with and (suspected) exposure to COVID-19; Z71.6 Tobacco abuse counseling; Z79.899 Other long term (current) drug therapy
CPT/HCPCS: 80307; 81001; 81025; 87635; 96372; 99284; 99285; J1200; J2060; Q0163

== ENCOUNTER 2021-10-24 18:13 | Emergency (ER) | payer OTHER, SELFPAY ==
[2021-10-24 18:37] VITALS: BP 142/76; PULSE 112; RESP 16; TEMP 37.1; O2SAT 97; BMI 44.6
--- NOTE | 2021-10-24 18:55 | ED.PSYCH ---
HPI - Psych General Chief Complaint: Psychiatric Symptoms <Vanessa Tafoya NP - Last Filed: 10/24/21 20:28> Stated Complaint: psych <Vanessa Tafoya NP - Last Filed: 10/24/21 20:28> Time Seen by Provider: 10/24/21 18:42 <Vanessa Tafoya NP - Last Filed: 10/24/21 20:28> Source: patient and EMS <Vanessa Tafoya NP - Last Filed: 10/24/21 20:28> Mode of arrival: EMS <Vanessa Tafoya NP - Last Filed: 10/24/21 20:28> Limitations: no limitations <Vanessa Tafoya NP - Last Filed: 10/24/21 20:28> History of Present Illness HPI Narrative: 36-year-old female well known to our facility past medical history significant for schizoaffective disorder depressive type, borderline personality disorder,? PTSD, self-inflicted injuries here with SI, plan to cut wrists and bleed out into the snow. with life stressors at home (dad's anniversary of , adoptive parents getting ). No one wants me or loves me. No physical complaints <Vanessa Tafoya NP - Last Filed: 10/24/21 20:28> Related Data Home Medications: Home Medications Medication Instructions Recorded Confirmed omeprazole 20 mg capsule,delayed 20 mg PO DAILY 11/29/20 10/24/21 release cetirizine 10 mg tablet 10 mg PO DAILY 12/24/20 10/24/21 lorazepam 1 mg tablet 1 mg PO TID PRN 03/30/21 10/24/21 fluticasone 250 mcg-salmeterol 50 1 puff INHALATION BID 08/02/21 10/24/21 mcg/dose blistr powdr for inhalation (Advair Diskus) topiramate 25 mg tablet 1 tab PO BID 08/02/21 10/24/21 duloxetine 60 mg capsule,delayed 1 cap PO QAM 08/03/21 10/24/21 release acetaminophen 500 mg tablet 500 mg PO Q6H PRN 09/01/21 10/24/21 albuterol sulfate 2.5 mg INHALATION Q4H PRN 09/01/21 10/24/21 hydroxyzine pamoate 50 mg capsule 1 cap PO BID PRN 09/01/21 10/24/21 trazodone 50 mg tablet 100 mg PO BEDTIME PRN 09/01/21 10/24/21 diphenhydramine HCl 50 mg capsule 2 cap PO BEDTIME 10/03/21 10/24/21 (Banophen) ferrous sulfate 325 mg (65 mg 1 tab PO QAM 10/03/21 10/24/21 iron) tablet,delayed release fluticasone propionate 50 2 spray INTRANASAL DAILY 10/03/21 10/24/21 mcg/actuation nasal spray,suspension lithium carbonate 300 mg tablet 1 tab PO BID 10/20/21 10/24/21 nicotine (polacrilex) 2 mg gum 2 mg BUCCAL Q2H PRN 10/24/21 10/24/21 (Nicorette) Previous Rx's Medication Instructions Recorded ammonium lactate 12 % topical cream 1 appl TOPICAL BID PRN 30 Days 09/22/21 #140 g benztropine 0.5 mg tablet 0.5 mg PO BID 30 Days #60 tab 09/22/21 haloperidol 5 mg tablet 5 mg PO TID 30 Days #90 tab 09/22/21 haloperidol decanoate 50 mg/mL 75 mg (1.5 mL) IM Q28D@1300 28 09/22/21 intramuscular solution Days #1.5 ml mirtazapine 30 mg tablet 30 mg PO BEDTIME 30 Days #30 tab 10/09/21 prazosin 5 mg capsule 20 mg PO BEDTIME 30 Days #120 cap 10/09/21 <Vanessa Tafoya NP - Last Filed: 10/24/21 20:28> Allergies/Adverse Reactions: Allergies Allergy/AdvReac Type Severity Reaction Status Date / Time carbamazepine [From TEGRETOL] AdvReac Unknown NAUSEA & Verified 06/01/21 20:14 VOMITING <Vanessa Tafoya NP - Last Filed: 10/24/21 20:28> Review of Systems Review of Systems: Yes all other systems are reviewed and are negative <Vanessa Tafoya NP - Last Filed: 10/24/21 20:28> Constitutional: Constitutional: Reports no additional constitutional complaints, Denies body ache(s), Denies chills, Denies fever(s), Denies headache(s) and Denies weakness <Vanessa Tafoya NP - Last Filed: 10/24/21 20:28> Eyes: Eyes: Reports no additional eye complaints and Denies change in vision <Vanessa Tafoya ELECTRONIC GAMING DEVICE SUPERVISOR - Last Filed: 10/24/21 20:28> ENT: Reports system reviewed and no additional complaints, except as documented, Denies dizziness, Denies headache(s), Denies nasal congestion, Denies nasal discharge and Denies neck pain <Vanessa Tafoya ELECT[employer] GAMING DEVICE SUPERVISOR - Last Filed: 10/24/21 20:28> Cardiovascular: Cardiovascular: Reports no additional cardiovascular complaints, Denies chest pain, Denies leg edema and Denies dyspnea <Vanessa Tafoya NP - Last Filed: 10/24/21 20:28> Respiratory: Respiratory: Reports no additional respiratory complaints, Denies cough and Denies dyspnea <Vanessa Tafoya NP - Last Filed: 10/24/21 20:28> Gastrointestinal: Gastrointestinal: Reports no additional gastrointestinal complaints, Denies abdominal pain, Denies diarrhea, Denies nausea and Denies vomiting <Vanessa Tafoya NP - Last Filed: 10/24/21 20:28> Genitourinary: Genitourinary: Reports no additional female genitourinary complaints and Denies urinary incontinence <Vanessa Tafoya NP - Last Filed: 10/24/21 20:28> Musculoskeletal: Musculoskeletal: Reports no additional musculoskeletal complaints, Denies back pain, Denies arthralgias, Denies joint swelling, Denies neck pain, Denies numbness and Denies tingling <Vanessa Tafoya NP - Last Filed: 10/24/21 20:28> Integumentary/Breasts: Skin/Breast: Reports system reviewed and no additional complaints, except as docu and Denies rash <Vanesas Tafoya NP - Last Filed: 10/24/21 20:28> Neurologic: Reports system reviewed and no additional complaints, except as documented, Denies Abnormal speech present, Denies dizziness, Denies headache(s), Denies numbness, Denies tingling and Denies weakness <Vanessa Tafoya NP - Last Filed: 10/24/21 20:28> Psychiatric: Psychiatric: Reports anxiety, Reports depression and Reports suicidal ideation <Vanessa Tafoya NP - Last Filed: 10/24/21 20:28> PMFSH Past Medical History Attestation statement: The following information was validated with the patient. <Vanessa Tafoya NP - Last Filed: 10/24/21 20:28> Source: old records reviewed and nursing notes reviewed <Vanessa Tafoya NP - Last Filed: 10/24/21 20:28> Medical History: Medical History Acute post-traumatic stress disorder Adjustment disorder Anxiety Asthma Borderline personality disorder Chronic post-traumatic stress disorder (PTSD) COPD (chronic obstructive pulmonary disease) Depression GERD (gastroesophageal reflux disease) Increased BMI Injury, self-inflicted Intentional self-harm PTSD (post-traumatic stress disorder) Recurrent major depression-severe Schizoaffective disorder Self-harming behavior Suicidal ideation Suicidal ideation <Vanessa Tafoya NP - Last Filed: 10/24/21 20:28> Social History Social History: Social History Household Members: Other Household Members Other:: [facility] Housing: Other Housing Other:: [facility] Do you presently have visiting nurse or other home services: No Alcohol intake: never Patient Tobacco Use Status: Former Tobacco user Quit Date: 02-19-21 Tobacco use type: Cigarette Cigarette Packs Per Day: 1 Cigarettes Per Day: 20.0 Years Smoked: 17 e-Cigarette/Vaping Use: Never Used Second Hand Smoke Exposure: Yes Substance Use Type: Marijuana Advance Directives: No Advance Directives Information Provided: No Patient : No service: No Sexual orientation: Don't Know <Vanessa Tafoya NP - Last Filed: 10/24/21 20:28> Physical Exam Vital Signs: Vital Signs: Last Vital Signs Temp 98.2 F 10/24/21 20:27 Pulse 109 H 10/24/21 20:27 Resp 18 10/24/21 20:27 BP 119/68 10/24/21 20:27 Pulse Ox 96 10/24/21 20:27 BMI result Body Mass Index 44.6 <Vanessa Tafoya NP - Last Filed: 10/24/21 20:28> Const: General: cooperative, healthy appearing, comfortable and no acute distress <Vanessa Tafoya NP - Last Filed: 10/24/21 20:28> Orientation/consciousness: patient oriented x3 <Vanessa Tafoya NP - Last Filed: 10/24/21 20:28> Limitations: no limitations <Vanessa Tafoya NP - Last Filed: 10/24/21 20:28> HENMT: Head: Yes normal to inspection <Vanessa Tafoya NP - Last Filed: 10/24/21 20:28> Ears: hearing grossly normal bilaterally <Vanessa Tafoya NP - Last Filed: 10/24/21 20:28> General nose exam: Normal external nose present <Vanessa Tafoya NP - Last Filed: 10/24/21 20:28> Face and sinus: Yes normal facial exam <Vanessa Tafoya NP - Last Filed: 10/24/21 20:28> Mouth: Normal oral and palatal mucosa present <Vanessa Tafoya NP - Last Filed: 10/24/21 20:28> Throat: Yes posterior oropharynx normal <Vanessa Tafoya NP - Last Filed: 10/24/21 20:28> Eyes: General: appearance normal, both eyes and all related structures <Vanessa Tafoya NP - Last Filed: 10/24/21 20:28> Pupils: Equal, round and reactive pupils present <Vanessa Tafoya NP - Last Filed: 10/24/21 20:28> Neck: Neck: Yes normal visual inspection <Vanessa Tafoya NP - Last Filed: 10/24/21 20:28> Chest: Chest palpation & inspection: normal inspection of the chest <Vanessa Tafoya NP - Last Filed: 10/24/21 20:28> Resp: Effort & Inspection: normal respiratory effort <Vanessa Tafoya NP - Last Filed: 10/24/21 20:28> Auscultation: clear to auscultation bilaterally <Vanessa Tafoya NP - Last Filed: 10/24/21 20:28> Cardio: Rate: regular rate <Vanessa Tafoya NP - Last Filed: 10/24/21 20:28> Rhythm: regular rhythm <Vanessa Tafoya NP - Last Filed: 10/24/21 20:28> Peripheral pulses: Peripheral pulses 2+ throughout <Vanessa Tafoya NP - Last Filed: 10/24/21 20:28> GI: Inspection: Yes normal to inspection <Vanessa Tafoya NP - Last Filed: 10/24/21 20:28> Palpation (GI): Soft to palpation and nontender <Vanessa Tafoya NP - Last Filed: 10/24/21 20:28> Auscultation: normal bowel sounds <Vanessa Tafoya NP - Last Filed: 10/24/21 20:28> Back/Spine/Pelvis: Thoracic/Lumbar Spine: thoracic and lumbar spine normal to inspection <Vanessa Tafoya NP - Last Filed: 10/24/21 20:28> Skin: General skin exam: no rashes or lesions noted <Vanessa Tafoya NP - Last Filed: 10/24/21 20:28> Neuro: General: patient oriented x3, no focal motor deficits and normal sensation to monofilament <Vanessa Tafoya NP - Last Filed: 10/24/21 20:28> Cranial nerves: Yes CN's II-XII intact bilaterally and Yes Equal, round and reactive pupils present <Vanessa Tafoya NP - Last Filed: 10/24/21 20:28> Cognition (Neuro): normal cognition <Vanessa Tafoya NP - Last Filed: 10/24/21 20:28> Speech: No Abnormal speech present <Vanessa Tafoya NP - Last Filed: 10/24/21 20:28> Gait exam (Neuro): Normal gait present <Vanessa Tafoya NP - Last Filed: 10/24/21 20:28> Motor exam (neuro): 5/5 motor strength present throughout <Vanessa Tafoya NP - Last Filed: 10/24/21 20:28> Extrem: General: Yes normal to inspection <Vanessa Tafoya NP - Last Filed: 10/24/21 20:28> Course Course Course Narrative: 36-year-old female here with suicidal thoughts, no physical complaints no concern for acute ingestion or trauma will check with tox screen, COVID screen, obtain care team consult 2100-Sign out to night team pending above. <Vanessa Tafoya NP - Last Filed: 10/24/21 20:28> MDM - Psych Medical Records Attestation: I reviewed the patient's medical records. <Vanessa Tafoya NP - Last Filed: 10/24/21 20:28> Lab Data Attestation: I reviewed the patient's lab results. <Vanessa Tafoya NP - Last Filed: 10/24/21 20:28> Labs: Lab Results 10/24/21 10/24/21 Range/Units 19:03 19:03 Urine Opiates Screen Not Detected (Not Detect) Urine Fentanyl Screen Not Detected (Not Detect) Ur Barbiturates Screen Not Detected (Not Detect) Ur Phencyclidine Scrn Not Detected (Not Detect) Ur Amphetamines Screen Not Detected (Not Detect) U Benzodiazepines Scrn Not Detected (Not Detect) Urine Cocaine Screen Not Detected (Not Detect) U Marijuana (THC) Screen POSITIVE H (Not Detect) COVID-19 (RAFAL) Negative (Negative) COVID-19 Clin Com See Note <Vanessa Tafoya NP - Last Filed: 10/24/21 20:28> Discharge Plan Discharge Clinical Impression: Borderline personality disorder <Vanessa Tafoya NP - Last Filed: 10/24/21 20:28> Patient Disposition: Still a Patient <Vanessa Tafoya NP - Last Filed: 10/24/21 20:28> Prescriptions: No Action omeprazole 20 mg capsule,delayed release(DR/EC) 20 mg PO DAILY 0RF cetirizine 10 mg Tablet 10 mg PO DAILY 0RF lorazepam 1 mg tablet 1 mg PO TID PRN (Reason: Anxiety/Restlessness ) 0RF topiramate 25 mg tablet 1 tab PO BID 0RF fluticasone propion-salmeterol [Advair Diskus] 250-50 mcg/dose blister with device 1 puff inhalation BID 0RF duloxetine 60 mg capsule,delayed release(DR/EC) 1 cap PO QAM 0RF diphenhydramine HCl [Banophen] 50 mg capsule 2 cap PO BEDTIME 0RF ferrous sulfate 325 mg (65 mg iron) tablet,delayed release (DR/EC) 1 tab PO QAM 0RF fluticasone propionate 50 mcg/actuation spray,suspension 2 spray intranasal DAILY 0RF prazosin 5 mg Capsule 20 mg PO BEDTIME 30 Days Qty: 120 0RF Protocol: Hold for SBP< HOLD for SBP < : 90 mirtazapine 30 mg Tablet 30 mg PO BEDTIME 30 Days Qty: 30 0RF nicotine (polacrilex) [Nicorette] 2 mg gum 2 mg buccal Q2H PRN (Reason: Nicotine Cravings) 0RF trazodone 50 mg tablet 100 mg PO BEDTIME PRN (Reason: Insomnia) 0RF hydroxyzine pamoate 50 mg capsule 1 cap PO BID PRN (Reason: anxiety) 0RF albuterol sulfate 2.5 mg /3 mL (0.083 %) Solution For Nebulization 2.5 mg INHALATION Q4H PRN (Reason: Shortness Of Breath) 0RF acetaminophen 500 mg Tablet 500 mg PO Q6H PRN (Reason: Pain (Scale Score 1-3)) 0RF benztropine 0.5 mg Tablet 0.5 mg PO BID 30 Days Qty: 60 0RF haloperidol 5 mg Tablet 5 mg PO TID 30 Days Qty: 90 0RF haloperidol decanoate 50 mg/mL Solution 75 mg IM Q28D@1300 28 Days Qty: 1.5 0RF ammonium lactate 12 % Cream 1 appl topical BID PRN (Reason: Dry Skin) 30 Days Qty: 140 0RF Protocol: Apply to: Apply to: bilateral feet lithium carbonate 300 mg tablet 1 tab PO BID 0RF <Vanessa Tafoya NP - Last Filed: 10/24/21 20:28>
[2021-10-24 19:28] LABS: Amphetamine Screen Urine Not Detected (Not Detect); Barbiturates, Urine Not Detected (Not Detect); Benzodiazepines Screen Urine Not Detected (Not Detect); Cannabinoid Screen Urine POSITIVE (Not Detect); Cocaine Screen Urine Not Detected (Not Detect); Fentanyl, urine Not Detected (Not Detect); Opiate Screen Urine Not Detected (Not Detect); Phencyclidine Screen Urine Not Detected (Not Detect)
[2021-10-24 19:29] LABS: COVID-19 Test Negative (Negative)
--- NOTE | 2021-10-24 20:07 | MHC.CARE ---
[facility]
[2021-10-24] MEDS: diphenhydrAMINE HCL 25 MG TABLET 100 MG PO (20:26)
[2021-10-24] MEDS: Lithium Carbonate 300 MG CAPSULE PO (20:26)
[2021-10-24] MEDS: HaloperidoL 5 MG TABLET PO (20:26)
[2021-10-24] MEDS: Prazosin HCL 5 MG CAPSULE 20 MG PO (20:26)
[2021-10-24] MEDS: traZODone HCL 100 MG TABLET PO (20:26)
[2021-10-24] MEDS: Topiramate 25 MG TABLET PO (20:26)
[2021-10-24] MEDS: LORazepam 1 MG TABLET PO (20:26)
[2021-10-24] MEDS: Mirtazapine 30 MG TABLET PO (20:26)
[2021-10-24] MEDS: Benztropine Mesylate 0.5 MG TABLET PO (20:26)
[2021-10-24 20:27] VITALS: BP 119/68; PULSE 109; RESP 18; TEMP 36.8; O2SAT 96
[2021-10-25] MEDS: Omeprazole 20 MG CAPSULE.DR PO (06:15)
--- NOTE | 2021-10-25 06:16 | PC.NURSE ---
Patient slept through the night, no distress observed/reported, behavior calm and quiet at this time, patient is on 1:1 for safety observation, patient was assessed by Jazlyn, disposition section 12 inpatient bed search, medication compliant, will continue to monitor.
[2021-10-25 06:36] VITALS: BP 113/69; PULSE 82; RESP 17; TEMP 36.7; O2SAT 97
--- NOTE | 2021-10-25 06:56 | PC.NURSE ---
patient appears to remain asleep at present respirations are even and unlabored patient appears in no distress
[2021-10-25] MEDS: Lithium Carbonate 300 MG CAPSULE PO ×2 (10:29→20:28)
[2021-10-25] MEDS: Topiramate 25 MG TABLET PO ×2 (10:30→20:28)
[2021-10-25] MEDS: Ferrous Sulfate 324 MG TABLET.DR PO (10:30)
[2021-10-25] MEDS: Benztropine Mesylate 0.5 MG TABLET PO ×2 (10:30→20:28)
[2021-10-25] MEDS: Loratadine 10 MG TABLET PO (10:30)
[2021-10-25] MEDS: DULoxetine HCl 60 MG CAPSULE.DR PO (10:30)
[2021-10-25] MEDS: HaloperidoL 5 MG TABLET PO ×2 (10:30→20:28)
[2021-10-25] MEDS: LORazepam 1 MG TABLET PO ×2 (10:34→20:28)
[2021-10-25] MEDS: hydrOXYzine HCL 50 MG TABLET PO (10:34)
--- NOTE | 2021-10-25 10:51 | PC.NURSE ---
patient escalating in self harm gestures, went from striking head with hand then moved self to floor and banging head on floor, moves when staff tries to lessen impact with cushioning.
[2021-10-25] MEDS: OLANZapine ODT 10 MG TAB.RAPDIS TRANSLINGU (10:59)
--- NOTE | 2021-10-25 11:13 | PC.NURSE ---
clients gesturing of banging head on floor causes abrasion on forehead, site of previous in jury, patient intermittently now making antagonistic statements about staff not caring, etc. she requests medical evaluiate injury, garett sent to provider. offered bandage in interim. wound not actively bleeding almost immediately post causation .
[2021-10-25] MEDS: Acetaminophen 325 MG TABLET 650 MG PO (11:43)
--- NOTE | 2021-10-25 15:19 | PC.NURSE ---
client woke from nap and immediately began making antagonizing statements towards staff seeming to want to antagonize staff. soone thereafter geastured by banging head on wall with staff in immediate vicinity. called security to move client to restraibnt ready bed. patient offeredf med and declined
[2021-10-25] MEDS: diphenhydrAMINE HCL 25 MG TABLET 100 MG PO (20:28)
[2021-10-25] MEDS: Prazosin HCL 5 MG CAPSULE 20 MG PO (20:28)
[2021-10-25] MEDS: traZODone HCL 100 MG TABLET PO (20:28)
[2021-10-25] MEDS: Mirtazapine 30 MG TABLET PO (20:28)
[2021-10-25 20:29] VITALS: BP 134/68; PULSE 73
--- NOTE | 2021-10-26 05:55 | PC.NURSE ---
Patient slept through the night, no distress observed/reported, VSS, behavior non concerning, patient is on 1:1 for safety observation, Disposition per [facility] section 12 inpatient bed search, no update on bed search, medication compliant, will continue to monitor.
[2021-10-26] MEDS: Omeprazole 20 MG CAPSULE.DR PO (06:42)
[2021-10-26 06:51] VITALS: BP 116/72; PULSE 78; RESP 17; TEMP 37.2; O2SAT 99
--- NOTE | 2021-10-26 07:04 | PC.NURSE ---
patient appears to remain asleep at present respirations are even and unlabored patient appears in no distress
--- NOTE | 2021-10-26 13:02 | PC.NURSE ---
patient continues on one to one status with brief awake periods, declined meds this morning and will reapproach later.
--- NOTE | 2021-10-26 14:33 | PC.NURSE ---
client escalATING briefly after shower and began headbanging despite 1:1 status. patient agreed to willingly take medicines to help with mood. t/w stated to client if the meds did not help sufficiently soon that other meds could be pursued.
[2021-10-26] MEDS: hydrOXYzine HCL 50 MG TABLET PO ×2 (14:40→23:22)
[2021-10-26] MEDS: LORazepam 1 MG TABLET PO ×2 (14:40→20:38)
[2021-10-26] MEDS: HaloperidoL 5 MG TABLET PO ×2 (14:40→20:38)
[2021-10-26] MEDS: OLANZapine ODT 10 MG TAB.RAPDIS TRANSLINGU (14:45)
[2021-10-26] MEDS: Acetaminophen 325 MG TABLET 650 MG PO (14:48)
[2021-10-26 20:30] VITALS: BP 124/82; PULSE 93; RESP 18; O2SAT 99
[2021-10-26] MEDS: Prazosin HCL 5 MG CAPSULE 20 MG PO (20:37)
[2021-10-26] MEDS: Mirtazapine 30 MG TABLET PO (20:37)
[2021-10-26] MEDS: diphenhydrAMINE HCL 25 MG TABLET 100 MG PO (20:37)
[2021-10-26] MEDS: Topiramate 25 MG TABLET PO (20:38)
[2021-10-26] MEDS: Benztropine Mesylate 0.5 MG TABLET PO (20:38)
[2021-10-26] MEDS: Lithium Carbonate 300 MG CAPSULE PO (20:38)
[2021-10-26] MEDS: traZODone HCL 100 MG TABLET PO (20:38)
[2021-10-26] MEDS: LORazepam 1 MG TABLET 2 MG PO (23:22)
[2021-10-26] MEDS: OLANZapine 10 MG TABLET PO (23:22)
[2021-10-26 23:55] VITALS: BP 128/75; PULSE 103; RESP 17; TEMP 36.4; O2SAT 97
--- NOTE | 2021-10-27 01:58 | PC.NURSE ---
Patient was found exhibiting behavior escalation due to [facility] refusing to have her few belonging delivered to the hospital, attempted to deescalates with no effect, provider notified/ordered Ativan 2 mg PO and Olanzapine 10 mg PO, administered as ordered at 2322 with + effect, patient is on 1:1 for safety, will continue to monitor.
[2021-10-27] MEDS: Omeprazole 20 MG CAPSULE.DR PO (06:06)
--- NOTE | 2021-10-27 06:49 | PC.NURSE ---
Patient currently sleeping, no distress observed/reported, behavior non concerning at this time but can be unpredictable, VSS, medication compliant, disposition per [facility] is section 12 inpatient bed search, will continue to monitor.
--- NOTE | 2021-10-27 07:37 | PC.NURSE ---
pt is a/o x 3 no sob/michael noted skin pink warm dry speaks in full sentences. pt took a shower.
[2021-10-27 07:42] VITALS: BP 119/68; PULSE 96; RESP 17; TEMP 36.2; O2SAT 97
--- NOTE | 2021-10-27 07:50 | PC.NURSE ---
pt is ambulating in hallway with 1:1 sitter. pt states+si, denies any pain/disc at this time.
[2021-10-27] MEDS: HaloperidoL 5 MG TABLET PO (08:50)
[2021-10-27] MEDS: Lithium Carbonate 300 MG CAPSULE PO (08:50)
[2021-10-27] MEDS: Ferrous Sulfate 324 MG TABLET.DR PO (08:50)
[2021-10-27] MEDS: Loratadine 10 MG TABLET PO (08:50)
[2021-10-27] MEDS: DULoxetine HCl 60 MG CAPSULE.DR PO (08:50)
[2021-10-27] MEDS: Topiramate 25 MG TABLET PO (08:50)
[2021-10-27] MEDS: Fluticasone/Vilanterol 100/25 BLST.W.DEV 1 PUFF INHALE (08:50)
[2021-10-27] MEDS: Benztropine Mesylate 0.5 MG TABLET PO (08:50)
--- NOTE | 2021-10-27 09:44 | PC.NURSE ---
alexsandra hooks ([employer] [facility], [phone], clinical teamcenter consultant) called for an update on pt status.
[2021-10-27] MEDS: Fluticasone Propionate Nasal 16 GM SPRAY 2 SPRAY NOSTRIL-B (10:14)
--- NOTE | 2021-10-27 12:52 | PC.NURSE ---
rn to rn given to marcos, to aware of plan of care for transfer to
--- NOTE | 2021-10-27 13:22 | PC.NURSE ---
PATIENT IS ALERT AND ORIENTED X 4 DENIES ANY SI OR HI AT THIS TIME STATED SHE FELT SAFE TO SIT IN WAITING ROOM TO AWAIT LYFT FOR TRANSFER HOME. PATIENT VERBALIZED UNDERSTANDING OF DISCHARGE INSTRUCTION
--- NOTE | 2021-10-27 13:50 | MHC.CARE ---
CARE Team meets with pt at her request, as pt is now expressing that she would like to be discharged from the ED, siting that she is feeling better. Pt denies SI and self harm urges. She identifies that time spent in the pod where she has increased supports and a contained environment has helped her to regulate herself. Pt identifies that there is increased discord between herself and her staff, which has resulted in her not seeking their support as often as she used to. CARE Team consults with psychiatrist Dr. Jesus on this case, as he has recently treated pt. Dr. Jesus agrees that if pt is not in clear imminent risk she should be discharged to work with her robust community team. Pt engages in self harm at baseline and struggles with emotional regulation and interpersonal effectiveness. CARE Team speaks with pt's community mental health clinician, Vanessa Valenzuela at length regarding pt's increased presentations to the ED. [facility], which ED provider, JUANITO Quinones is in agreement with. CARE Team will conduct a check in call with pt this evening.
--- NOTE | 2021-10-27 21:06 | MHC.CARE ---
Pt returned check in call. Pt reports feeling better and explained that she had been out shopping which is why she missed CARE Team's first call. Pt plans on having some dinner and then watching a movie or listening to music.
== END 2021-10-27 13:24 | disposition other institution (70) ==
PROVIDERS: Nurse Practitioner Family; Emergency Provider Emergency Medicine
DX: F60.3 Borderline personality disorder (principal); F25.1 Schizoaffective disorder, depressive type; F43.10 Post-traumatic stress disorder, unspecified; Z20.822 Contact with and (suspected) exposure to COVID-19
CPT/HCPCS: 80307; 87635; 99284; 99285; Q0163

== ENCOUNTER 2021-11-05 12:57 | Emergency (ER) | payer OTHER, SELFPAY ==
[2021-11-05 13:04] VITALS: BP 161/100; PULSE 103; O2SAT 99
[2021-11-05 13:11] VITALS: BP 133/82; PULSE 92; RESP 16; TEMP 35.8; O2SAT 98; BMI 34.3
[2021-11-05] MEDS: Diphth,Pertus(ACell),Tet Adult 0.5 ML SYRINGE IM (14:35)
[2021-11-05] MEDS: Lidocaine HCl 1 % 20 ML VIAL 10 ML INFILTRATI (14:36)
--- NOTE | 2021-11-05 15:15 | ED_ITS ---
HPI - Psych General Chief Complaint: Psychiatric Symptoms Stated Complaint: Crisis Time Seen by Provider: 11/05/21 13:03 Source: patient and EMS Mode of arrival: EMS Limitations: no limitations History of Present Illness HPI Narrative: 36-year-old female presents for self-harm and suicidal ideation. She has a past medical history of borderline personality disorder, schizoaffective disorder, and PTSD, and lives in a [facility] in [place]. She bought a razor and cut herself numerous times on her left forearm, some of the cuts require sutures. Patient states she is very depressed due to relationship conflict with her brother. States she has not slept or eaten in days. States she was due for an MRI of her brain today because her primary had concern for head injury due to her excessive head banging. Denies wanting to harm anyone else. States she is hearing things, voices that say ?no one wants me ?and you would be better off . She is not sure she is up-to-date on her tetanus. She would like to be admitted. When asked if she is suicidal, she states, ?I cannot answer that?. complaint: suicidal ideation, feels depressed and hallucinations Onset (ago): hour(s) (2) Duration: constant History of same: Yes Exacerbating factors: other (issues with brother) Context: significant life stressor Associated psychiatric symptoms: depression, suicidal ideation and auditory hallucinations Associated symptoms: denies other symptoms If self harm: self-inflicted trauma Related Data Home Medications Medication Instructions Recorded Confirmed omeprazole 20 mg capsule,delayed 20 mg PO DAILY 11/29/20 10/24/21 release cetirizine 10 mg tablet 10 mg PO DAILY 12/24/20 10/24/21 lorazepam 1 mg tablet 1 mg PO TID PRN 03/30/21 10/24/21 fluticasone 250 mcg-salmeterol 50 1 puff INHALATION BID 08/02/21 10/24/21 mcg/dose blistr powdr for inhalation (Advair Diskus) topiramate 25 mg tablet 1 tab PO BID 08/02/21 10/24/21 duloxetine 60 mg capsule,delayed 1 cap PO QAM 08/03/21 10/24/21 release acetaminophen 500 mg tablet 500 mg PO Q6H PRN 09/01/21 10/24/21 albuterol sulfate 2.5 mg INHALATION Q4H PRN 09/01/21 10/24/21 hydroxyzine pamoate 50 mg capsule 1 cap PO BID PRN 09/01/21 10/24/21 trazodone 50 mg tablet 100 mg PO BEDTIME PRN 09/01/21 10/24/21 diphenhydramine HCl 50 mg capsule 2 cap PO BEDTIME 10/03/21 10/24/21 (Banophen) ferrous sulfate 325 mg (65 mg 1 tab PO QAM 10/03/21 10/24/21 iron) tablet,delayed release fluticasone propionate 50 2 spray INTRANASAL DAILY 10/03/21 10/24/21 mcg/actuation nasal spray,suspension lithium carbonate 300 mg tablet 1 tab PO BID 10/20/21 10/24/21 nicotine (polacrilex) 2 mg gum 2 mg BUCCAL Q2H PRN 10/24/21 10/24/21 (Nicorette) Previous Rx's Medication Instructions Recorded ammonium lactate 12 % topical cream 1 appl TOPICAL BID PRN 30 Days 09/22/21 #140 g benztropine 0.5 mg tablet 0.5 mg PO BID 30 Days #60 tab 09/22/21 haloperidol 5 mg tablet 5 mg PO TID 30 Days #90 tab 09/22/21 haloperidol decanoate 50 mg/mL 75 mg (1.5 mL) IM Q28D@1300 28 09/22/21 intramuscular solution Days #1.5 ml mirtazapine 30 mg tablet 30 mg PO BEDTIME 30 Days #30 tab 10/09/21 prazosin 5 mg capsule 20 mg PO BEDTIME 30 Days #120 cap 10/09/21 Allergies Allergy/AdvReac Type Severity Reaction Status Date / Time carbamazepine [From TEGRETOL] AdvReac Unknown NAUSEA & Verified 06/01/21 20:14 VOMITING Review of Systems Constitutional: Constitutional: Denies body ache(s), Denies chills, Denies fatigue, Denies fever(s), Reports headache(s), Denies malaise and Denies weakness Eyes: Eyes: Denies diplopia ENT: Denies dizziness, Denies otalgia, Reports headache(s), Denies post nasal drip and Denies sore throat Cardiovascular: Cardiovascular: Denies chest pain, Denies syncope, Denies leg edema, Denies lightheadedness, Denies Loss of Consciousness, Denies palpitations and Denies dyspnea Respiratory: Respiratory: Denies chest congestion, Denies cough and Denies dyspnea Gastrointestinal: Gastrointestinal: Denies abdominal pain, Denies hematochezia, Denies constipation, Denies diarrhea and Denies vomiting Genitourinary: Genitourinary: Reports no additional female genitourinary complaints Musculoskeletal: Musculoskeletal: Reports no additional musculoskeletal complaints Integumentary/Breasts: Comments: Multiple superficial and deep lacerations to left forearm Neurologic: Denies confusion, Denies dizziness, Denies syncope, Reports headache(s) and Denies weakness Psychiatric: Psychiatric: Reports anxiety, Denies confusion, Reports depression, Reports auditory hallucinations and Reports suicidal ideation Endocrine: Endocrine: Denies fatigue and Denies palpitations PMFSH Past Medical History Medical History Acute post-traumatic stress disorder Adjustment disorder Anxiety Asthma Borderline personality disorder Chronic post-traumatic stress disorder (PTSD) COPD (chronic obstructive pulmonary disease) Depression GERD (gastroesophageal reflux disease) Increased BMI Injury, self-inflicted Intentional self-harm PTSD (post-traumatic stress disorder) Recurrent major depression-severe Schizoaffective disorder Self-harming behavior Suicidal ideation Suicidal ideation Social History Social History Household Members: Other Household Members Other:: [facility] Housing: Other Housing Other:: [facility] Do you presently have visiting nurse or other home services: No Alcohol intake: never Patient Tobacco Use Status: Former Tobacco user Quit Date: 02-19-21 Tobacco use type: Cigarette Cigarette Packs Per Day: 1 Cigarettes Per Day: 20.0 Years Smoked: 17 e-Cigarette/Vaping Use: Never Used Second Hand Smoke Exposure: Yes Substance Use Type: Marijuana Advance Directives: No Advance Directives Information Provided: No service: No Sexual orientation: Don't Know Physical Exam Vital Signs: Vital Signs: Last Vital Signs Temp 96.5 F L 11/05/21 13:11 Pulse 92 11/05/21 13:11 Resp 16 11/05/21 16:00 BP 133/82 11/05/21 13:11 Pulse Ox 98 11/05/21 13:11 BMI result Body Mass Index 34.3 Const: General: alert and awake; No confusion Nutritional Appearance: well nourished and obese Orientation/consciousness: patient oriented x3 and No confusion Limitations: no limitations HEENT: Head: Yes normal to inspection, Yes normocephalic and Yes atraumatic Ears: hearing grossly normal bilaterally and external ears normal General nose exam: Normal external nose present Face and sinus: Yes normal facial exam Mouth: Normal oral and palatal mucosa present Throat: Yes posterior oropharynx normal Eyes: Conjunctivae: conjunctivae normal Pupils: Equal, round and reactive pupils present EOM: EOMs intact bilaterally Neck: Neck: Yes full ROM, Yes no lymphadenopathy and Yes supple Resp: Effort & Inspection: normal respiratory effort and able to speak in complete sentences Auscultation: clear to auscultation bilaterally, no crackles, no rales, no rhonchi and no wheezes Cardio: Rate: regular rate Rhythm: regular rhythm Heart sounds: S1 normal heart sound present and S2 normal heart sound present GI: Inspection: Yes normal to inspection Palpation (GI): Soft to palpation, nontender, no guarding and not rigid Percussion: Yes normal to percussion Auscultation: normal bowel sounds Skin: Other: Multiple superficial lacerations to left forearm Neuro: General: patient oriented x3 and No confusion Cranial nerves: Yes Equal, round and reactive pupils present Extrem: Other: Multiple linear scars bilateral forearms General: Yes full ROM Psych: Appearance: grossly normal Mental Status: mental status grossly normal Speech and movement: Normal speech and movement present Affect: Sad affect present Attitude: cooperative Thought process: Normal thought process present Course Course Course Narrative: 36-year-old well-known to this emergency room, presents for question of suicidal ideation and recent self-harm. Patient has multiple cuts including 3 lacerations that need to be sutured in her left forearm. Patient states she has self-harm as a way of coping with relationship difficulties. I sutured her arm, put in for labs in urine, will get crisis evaluation. Reevaluation(s) Reevaluation #1: Urine tox screen positive for marijuana and fentanyl, labs otherwise unremarkable. Patient is medically cleared for crisis evaluation. Time: 17:09 Reevaluation #2: Place patient in physician observation at this time, awaiting disposition once patient is seen by [facility] - Psych Lab Data Result diagrams: 11/05/21 15:33 11/05/21 15:33 Labs: Lab Results 0311/05/21 11/05/21 Range/Units 15:33 15:33 15:33 WBC 9.2 (4.8-10.8) X10*3/uL RBC 4.35 (4.20-5.50) X10*6/uL Hgb 11.6 L (12.0-16.0) g/dl Hct 37.4 (37.0-47.0) % MCV 86.0 (80.0-98.0) fL MCH 26.7 L (27.0-33.0) pg MCHC 31.0 (31.0-35.0) g/dl RDW 16.0 (11.0-16.0) % Plt Count 290 (160-400) X10*3/uL MPV 10.8 (9.4-12.3) fL Immature Gran % (Auto) 0.3 (0.0-0.4) % Neut % (Auto) 71.0 (45-73) % Lymph % (Auto) 24.2 (20-40) % [place] % (Auto) 3.8 (2-11) % Eos % (Auto) 0.5 (0-4) % Baso % (Auto) 0.2 (0-2) % Lymph # (Auto) 2.2 (1.2-4.9) X10*3/uL [place] # (Auto) 0.4 (0.1-1.2) X10*3/uL Eos # (Auto) 0.1 (0.0-0.4) X10*3/uL Baso # (Auto) 0.0 (0.0-0.2) X10*3/uL Abs Immat Gran (auto) 0.03 (0.00-0.03) X10*3/uL Absolute Neuts (auto) 6.6 (2.0-8.3) x10*3/uL Absolute Nucleated RBC 0.000 (0.0-0.012) X10*3/uL Nucleated RBC % (auto) 0.0 (0.0-0.2) /100WBC Sodium 136 (135-145) mmol/L Potassium 4.1 (3.3-5.1) mmol/L Chloride 111 H (96-108) mmol/L Carbon Dioxide 15 L (22-29) mmol/L Anion Gap 14 (12-20) BUN 9 (9-16) mg/dL Creatinine 0.80 (0.5-1.4) mg/dL Estim Creat Clear Calc 107.0 Estimated GFR > 60 Random Glucose 134 H (60-115) mg/dL Calcium 8.8 (8.4-10.2) mg/dL Total Bilirubin 0.3 (0.0-1.0) mg/dL AST 11 (5-31) U/L ALT 10 (0-31) U/L Alkaline Phosphatase 71 (39-117) U/L Total Protein 6.4 L (6.5-8.0) g/dL Albumin 3.8 (3.5-5.0) g/dL Urine Color Urine Appearance Urine pH (5.0-8.0) Ur Specific [place] (1.005-1.025) Urine Protein (NEG-TRACE) MG/DL Urine Glucose (UA) (NEG) MG/DL Urine Ketones (NEG) MG/DL Urine Blood (NEG) Urine Nitrite (NEG) Ur Leukocyte Esterase (NEG) Urine Opiates Screen (Not Detect) Urine Fentanyl Screen (Not Detect) Ur Barbiturates Screen (Not Detect) Ur Phencyclidine Scrn (Not Detect) Ur Amphetamines Screen (Not Detect) U Benzodiazepines Scrn (Not Detect) Urine Cocaine Screen (Not Detect) U Marijuana (THC) Screen (Not Detect) Ethyl Alcohol mg/dL COVID-19 (RAFAL) Negative (Negative) COVID-19 Clin Com See Note 11/05/21 11/05/21 11/05/21 Range/Units 15:33 15:33 15:33 WBC (4.8-10.8) X10*3/uL RBC (4.20-5.50) X10*6/uL Hgb (12.0-16.0) g/dl Hct (37.0-47.0) % MCV (80.0-98.0) fL MCH (27.0-33.0) pg MCHC (31.0-35.0) g/dl RDW (11.0-16.0) % Plt Count (160-400) X10*3/uL MPV (9.4-12.3) fL Immature Gran % (Auto) (0.0-0.4) % Neut % (Auto) (45-73) % Lymph % (Auto) (20-40) % [place] % (Auto) (2-11) % Eos % (Auto) (0-4) % Baso % (Auto) (0-2) % Lymph # (Auto) (1.2-4.9) X10*3/uL [place] # (Auto) (0.1-1.2) X10*3/uL Eos # (Auto) (0.0-0.4) X10*3/uL Baso # (Auto) (0.0-0.2) X10*3/uL Abs Immat Gran (auto) (0.00-0.03) X10*3/uL Absolute Neuts (auto) (2.0-8.3) x10*3/uL Absolute Nucleated RBC (0.0-0.012) X10*3/uL Nucleated RBC % (auto) (0.0-0.2) /100WBC Sodium (135-145) mmol/L Potassium (3.3-5.1) mmol/L Chloride (96-108) mmol/L Carbon Dioxide (22-29) mmol/L Anion Gap (12-20) BUN (9-16) mg/dL Creatinine (0.5-1.4) mg/dL Estim Creat Clear Calc Estimated GFR Random Glucose (60-115) mg/dL Calcium (8.4-10.2) mg/dL Total Bilirubin (0.0-1.0) mg/dL AST (5-31) U/L ALT (0-31) U/L Alkaline Phosphatase (39-117) U/L Total Protein (6.5-8.0) g/dL Albumin (3.5-5.0) g/dL Urine Color YELLOW Urine Appearance CLEAR Urine pH 5.5 (5.0-8.0) Ur Specific [place] 1.025 (1.005-1.025) Urine Protein NEG (NEG-TRACE) MG/DL Urine Glucose (UA) NEG (NEG) MG/DL Urine Ketones NEG (NEG) MG/DL Urine Blood NEG (NEG) Urine Nitrite NEG (NEG) Ur Leukocyte Esterase NEG (NEG) Urine Opiates Screen Not Detected (Not Detect) Urine Fentanyl Screen POSITIVE H (Not Detect) Ur Barbiturates Screen Not Detected (Not Detect) Ur Phencyclidine Scrn Not Detected (Not Detect) Ur Amphetamines Screen Not Detected (Not Detect) U Benzodiazepines Scrn Not Detected (Not Detect) Urine Cocaine Screen Not Detected (Not Detect) U Marijuana (THC) Screen POSITIVE H (Not Detect) Ethyl Alcohol < 10 mg/dL COVID-19 (RAFAL) (Negative) COVID-19 Clin Com Procedures Laceration Laceration 1: Site: upper extremity Side (If applicable): left Size (cm): 3 Description: linear Depth: simple, single layer Local Anesthetic: lidocaine 1% Amount of anesthesia used (mL): 3 Pre-repair: wound explored, irrigated extensively and deep structures intact Skin layer closed with: nylon Size (cm): 3-0 Number of sutures: 1 Technique: simple, interrupted Laceration 2: Site: upper extremity Side (If applicable): left Size (cm): 3.5 Description: linear Depth: simple, single layer Local Anesthetic: lidocaine 1% Amount of anesthesia used (mL): 3 Pre-repair: wound explored, irrigated extensively and deep structures intact Skin layer closed with: nylon Size (cm): 4-0 Number of sutures: 2 Technique: simple, interrupted Laceration 3: Site: upper extremity Side (If applicable): left Size (cm): 3 Description: linear Depth: simple, single layer Local Anesthetic: lidocaine 1% Amount of anesthesia used (mL): 4 Pre-repair: wound explored, irrigated extensively and deep structures intact Skin layer closed with: nylon Size (cm): 3-0 Number of sutures: 6 Technique: simple, interrupted Discharge Plan Discharge Clinical Impression: Borderline personality disorder, Depression, Laceration of arm, left, multiple sites Patient Disposition: Still a Patient Prescriptions: No Action omeprazole 20 mg capsule,delayed release(DR/EC) 20 mg PO DAILY 0RF cetirizine 10 mg Tablet 10 mg PO DAILY 0RF lorazepam 1 mg tablet 1 mg PO TID PRN (Reason: Anxiety/Restlessness ) 0RF topiramate 25 mg tablet 1 tab PO BID 0RF fluticasone propion-salmeterol [Advair Diskus] 250-50 mcg/dose blister with device 1 puff inhalation BID 0RF duloxetine 60 mg capsule,delayed release(DR/EC) 1 cap PO QAM 0RF diphenhydramine HCl [Banophen] 50 mg capsule 2 cap PO BEDTIME 0RF ferrous sulfate 325 mg (65 mg iron) tablet,delayed release (DR/EC) 1 tab PO QAM 0RF fluticasone propionate 50 mcg/actuation spray,suspension 2 spray intranasal DAILY 0RF prazosin 5 mg Capsule 20 mg PO BEDTIME 30 Days Qty: 120 0RF Protocol: Hold for SBP< HOLD for SBP < : 90 mirtazapine 30 mg Tablet 30 mg PO BEDTIME 30 Days Qty: 30 0RF nicotine (polacrilex) [Nicorette] 2 mg gum 2 mg buccal Q2H PRN (Reason: Nicotine Cravings) 0RF trazodone 50 mg tablet 100 mg PO BEDTIME PRN (Reason: Insomnia) 0RF hydroxyzine pamoate 50 mg capsule 1 cap PO BID PRN (Reason: anxiety) 0RF albuterol sulfate 2.5 mg /3 mL (0.083 %) Solution For Nebulization 2.5 mg INHALATION Q4H PRN (Reason: Shortness Of Breath) 0RF acetaminophen 500 mg Tablet 500 mg PO Q6H PRN (Reason: Pain (Scale Score 1-3)) 0RF benztropine 0.5 mg Tablet 0.5 mg PO BID 30 Days Qty: 60 0RF haloperidol 5 mg Tablet 5 mg PO TID 30 Days Qty: 90 0RF haloperidol decanoate 50 mg/mL Solution 75 mg IM Q28D@1300 28 Days Qty: 1.5 0RF ammonium lactate 12 % Cream 1 appl topical BID PRN (Reason: Dry Skin) 30 Days Qty: 140 0RF Protocol: Apply to: Apply to: bilateral feet lithium carbonate 300 mg tablet 1 tab PO BID 0RF
[2021-11-05 15:39] LABS: MANUAL DIFF FLAG NO
[2021-11-05 15:45] LABS: Basophils Percent Auto 0.2 % (0-2); Eosinophils Absolute Auto 0.1 X10*3/uL (0.0-0.4); Eosinophils Percent Auto 0.5 % (0-4); Hematocrit 37.4 % (37.0-47.0); Hemoglobin 11.6 g/dl (12.0-16.0); Imm Gran Abs Auto 0.03 X10*3/uL (0.00-0.03); Imm Gran Pct Auto 0.3 % (0.0-0.4); Lymphocytes Absolute Auto 2.2 X10*3/uL (1.2-4.9); Lymphocytes Percent Auto 24.2 % (20-40); Mean Corpuscular Hemoglobin 26.7 pg (27.0-33.0); Mean Platelet Volume 10.8 fL (9.4-12.3); Monocytes Absolute Auto 0.4 X10*3/uL (0.1-1.2); Monocytes Percent Auto 3.8 % (2-11); Neutrophils Absolute Auto 6.6 x10*3/uL (2.0-8.3); Platelet Count 290 X10*3/uL (160-400); Red Blood Count 4.35 X10*6/uL (4.20-5.50); White Blood Count 9.2 X10*3/uL (4.8-10.8)
[2021-11-05 15:53] LABS: Appearance Urine CLEAR; Color Urine YELLOW; Glucose Urine UA NEG (NEG); Leukocyte Esterase Urine NEG (NEG); Nitrite Urine NEG (NEG); PH 5.5 (5.0-8.0); Specific Gravity - Urine 1.025 (1.005-1.025); Urine Blood NEG (NEG); Urine Ketones NEG (NEG); Urine Protein NEG (NEG-TRACE)
[2021-11-05 15:59] LABS: COVID-19 Test Negative (Negative)
[2021-11-05 16:00] VITALS: RESP 16
[2021-11-05 16:01] LABS: Ethanol < 10 mg/dL
[2021-11-05 16:05] LABS: Alanine Aminotransferase 10 U/L (0-31); Albumin Level 3.8 g/dL (3.5-5.0); Alkaline Phosphatase 71 U/L (39-117); Anion Gap 14 (12-20); Aspartate Amino Transferase 11 U/L (5-31); Bilirubin Total 0.3 mg/dL (0.0-1.0); Blood Urea Nitrogen 9 mg/dL (9-16); Calcium 8.8 mg/dL (8.4-10.2); Carbon Dioxide 15 mmol/L (22-29); Chloride 111 mmol/L (96-108); Estimated Glomerular Filt Rate > 60; Glucose Random 134 mg/dL (60-115); Potassium 4.1 mmol/L (3.3-5.1); Sodium 136 mmol/L (135-145); Total Protein 6.4 g/dL (6.5-8.0)
[2021-11-05 16:06] LABS: Amphetamine Screen Urine Not Detected (Not Detect); Barbiturates, Urine Not Detected (Not Detect); Benzodiazepines Screen Urine Not Detected (Not Detect); Cannabinoid Screen Urine POSITIVE (Not Detect); Cocaine Screen Urine Not Detected (Not Detect); Fentanyl, urine POSITIVE (Not Detect); Opiate Screen Urine Not Detected (Not Detect); Phencyclidine Screen Urine Not Detected (Not Detect)
--- NOTE | 2021-11-05 19:08 | MHC.CARE ---
CARE team met with pt for a risk screening. Pt presented to the ED with lacerations to her arm self inflicted with a razor. Pt shares that she was triggered by seeing her bio brother over the weekend in [place] and he showed her their mother's Urn. Pt reports that she has been angry and today states I took it out on myself . Pt denies SI and identifies coping skills that she would like to utilize at home such as watching [place] and listening to music. Pt requests to go home and has a plan to followup with her MRI this week. Pt reports that she does not want to remain in the ED and made a plan with this health technical writer to attempt to remain safe. T[facility]w contacted the prison and are in agreement with her returning back. This health technical writer also contacted [facility], Ronnie Jesus and he also agrees with plan. Case discussed with HORTENSIA Guevara and provider Gilma Valencia
== END 2021-11-05 19:19 | disposition home or self-care (01) ==
PROVIDERS: Physician Assistant; Emergency Provider Emergency Medicine
DX: F33.1 Major depressive disorder, recurrent, moderate (principal); R45.851 Suicidal ideations; F25.9 Schizoaffective disorder, unspecified; F17.210 Nicotine dependence, cigarettes, uncomplicated; F12.90 Cannabis use, unspecified, uncomplicated; S41.112A Laceration without foreign body of left upper arm, initial encounter; X78.1XXA Intentional self-harm by knife, initial encounter; Y93.9 Activity, unspecified; Y92.9 Unspecified place or not applicable; Y99.9 Unspecified external cause status; Z20.822 Contact with and (suspected) exposure to COVID-19; Z71.6 Tobacco abuse counseling; Z79.899 Other long term (current) drug therapy
CPT/HCPCS: 12004; 36415; 80053; 80307; 81003; 82077; 85025; 87635; 90471; 90715; 99284; 99285

== ENCOUNTER 2021-11-11 07:08 | Outpatient (REF) | payer OTHER, SELFPAY ==
--- NOTE | ~2021-11-11 | XR_ITS ---
EXAMINATION: XR FOOT, LEFT CLINICAL INFORMATION: Pain. COMPARISON: None TECHNIQUE: AP, lateral, and oblique views of the left foot. FINDINGS: The ankle mortise and subtalar joints are normal. No visible acute fracture or dislocation seen. There is dorsal intertarsal midfoot enthesophytes. There is no fracture or dislocation especially along the lateral foot. A small calcaneal heel enthesophyte is seen. XR/XR foot LT min 3V IMPRESSION: No acute fracture, dislocation or subluxation seen along the lateral foot. There is mild dorsal intertarsal spurring midfoot and a small calcaneal heel enthesophyte.
== END 2021-11-11 07:09 | disposition home or self-care (01) ==
LOC: HO.HOSX 07:08
PROVIDERS: Visit Provider Physician Assistant
DX: S93.602A Unspecified sprain of left foot, initial encounter (principal)
CPT/HCPCS: 73630; 99212

== ENCOUNTER 2021-11-15 17:54 | Emergency (ER) | payer OTHER, SELFPAY ==
--- NOTE | 2021-11-15 17:59 | ED.GENADULT ---
HPI - General Adult General Chief complaint: Psychiatric Symptoms <JUANITO Bledsoe - Last Filed: 11/15/21 19:00> Stated complaint: crisis <JUANITO Bledsoe - Last Filed: 11/15/21 19:00> Time Seen by Provider: 11/15/21 17:59 <JUANITO Bledsoe - Last Filed: 11/15/21 19:00> Source: patient and EMS <JUANITO Bledsoe Last Filed: 11/15/21 19:00> Mode of arrival: EMS <JUANITO Bledsoe Last Filed: 11/15/21 19:00> Limitations: no limitations <JUANITO Bledsoe Last Filed: 11/15/21 19:00> History of Present Illness HPI narrative: Patient is a 36 year old female presenting to the emergency department today with multiple lacerations to her forearm. Patient states that she has been feeling much more down lately. Patient states that she found a razor in the long-term and began to cut herself on her forearms, repeatedly. Patient denies any dizziness, lightheadedness, abdominal pain, nausea, vomiting, fever, chills, blurry vision, double vision, loss of vision, chest pain, difficulty breathing, shortness of breath, back pain, night sweats, pain with urination, increased urinary frequency, increased urinary urgency, blood in her urine or stool, syncope or a near syncopal episode, recent trauma or falls, bowel incontinence, bladder incontinence, bowel retention, bladder retention, or any other complaints at this time. When asked how she is doing, she responds with not well . When asked if she is suicidal, she does not answer. <JUANITO Bledsoe - Last Filed: 11/15/21 19:00> Treatments prior to arrival: none <JUANITO Bledsoe - Last Filed: 11/15/21 19:00> Related Data Home medications: Home Medications Medication Instructions Recorded Confirmed omeprazole 20 mg capsule,delayed 20 mg PO DAILY 11/29/20 11/15/21 release cetirizine 10 mg tablet 10 mg PO DAILY 12/24/20 11/15/21 fluticasone 250 mcg-salmeterol 50 1 puff INHALATION BID 08/02/21 11/15/21 mcg/dose blistr powdr for inhalation (Advair Diskus) topiramate 25 mg tablet 25 mg PO BID 08/02/21 11/15/21 duloxetine 60 mg capsule,delayed 1 cap PO QAM 08/03/21 11/15/21 release acetaminophen 500 mg tablet 500 mg PO Q6H PRN 09/01/21 11/15/21 albuterol sulfate 2.5 mg INHALATION Q4H PRN 09/01/21 11/15/21 hydroxyzine pamoate 50 mg capsule 50 mg PO BID PRN 09/01/21 11/15/21 trazodone 50 mg tablet 100 mg PO BEDTIME PRN 09/01/21 11/15/21 diphenhydramine HCl 50 mg capsule 2 cap PO BEDTIME 10/03/21 11/15/21 (Banophen) ferrous sulfate 325 mg (65 mg 1 tab PO QAM 10/03/21 11/15/21 iron) tablet,delayed release fluticasone propionate 50 2 spray INTRANASAL DAILY 10/03/21 11/15/21 mcg/actuation nasal spray,suspension lithium carbonate 300 mg tablet 300 mg PO BID 10/20/21 11/15/21 nicotine (polacrilex) 2 mg gum 2 mg BUCCAL Q2H PRN 10/24/21 11/16/21 (Nicorette) mirtazapine 15 mg tablet 15 mg PO BEDTIME 11/15/21 11/15/21 Previous Rx's Medication Instructions Recorded ammonium lactate 12 % topical cream 1 appl TOPICAL BID PRN 30 Days 09/22/21 #140 g benztropine 0.5 mg tablet 0.5 mg PO BID 30 Days #60 tab 09/22/21 haloperidol 5 mg tablet 5 mg PO TID 30 Days #90 tab 09/22/21 haloperidol decanoate 50 mg/mL 75 mg (1.5 mL) IM Q28D@1300 28 09/22/21 intramuscular solution Days #1.5 ml prazosin 5 mg capsule 20 mg PO BEDTIME 30 Days #120 cap 10/09/21 <JUANITO Bledsoe - Last Filed: 11/15/21 19:00> Allergies/adverse reactions: Allergies Allergy/AdvReac Type Severity Reaction Status Date / Time carbamazepine [From TEGRETOL] AdvReac Unknown NAUSEA & Verified 11/11/21 09:05 VOMITING <JUANITO Bledsoe - Last Filed: 11/15/21 19:00> Review of Systems Constitutional: Constitutional: Reports no additional constitutional complaints, Denies chills, Denies fever(s) and Denies night sweats <JUANITO Bledsoe Last Filed: 11/15/21 19:00> Eyes: Eyes: Reports no additional eye complaints, Denies blurry vision, Denies change in vision, Denies diplopia, Denies eye discharge, Denies loss of vision and Denies eye pain <JUANITO Bledsoe Last Filed: 11/15/21 19:00> ENT: Denies dizziness <JUANITO Bledsoe Last Filed: 11/15/21 19:00> Cardiovascular: Cardiovascular: Reports no additional cardiovascular complaints, Denies chest pain, Denies lightheadedness, Denies Loss of Consciousness and Denies dyspnea <JUANITO Bledsoe Last Filed: 11/15/21 19:00> Respiratory: Respiratory: Reports no additional respiratory complaints and Denies dyspnea <JUANITO Bledsoe - Last Filed: 11/15/21 19:00> Gastrointestinal: Gastrointestinal: Reports no additional gastrointestinal complaints, Denies abdominal pain, Denies melena, Denies hematochezia, Denies change in bowel habits and Denies change in stool character <JUANITO Bledsoe Last Filed: 11/15/21 19:00> Genitourinary: Genitourinary: Denies hematuria, Denies urinary frequency, Denies dysuria, Denies urinary incontinence, Denies urinary hesitancy and Denies urinary urgency <JUANITO Bledsoe Last Filed: 11/15/21 19:00> Musculoskeletal: Musculoskeletal: Reports no additional musculoskeletal complaints, Denies numbness and Denies tingling <JUANITO Bledsoe - Last Filed: 11/15/21 19:00> Integumentary/Breasts: Comments: bilateral forearm lacerations <JUANITO Bledsoe Last Filed: 11/15/21 19:00> Neurologic: Denies dizziness, Denies loss of vision, Denies numbness and Denies tingling <JUANITO Bledsoe Last Filed: 11/15/21 19:00> Psychiatric: Psychiatric: Reports depression and Reports hopelessness <JUANITO Bledsoe - Last Filed: 11/15/21 19:00> Endocrine: Endocrine: Reports no additional endocrine complaints <JUANITO Bledsoe - Last Filed: 11/15/21 19:00> Hematologic/Lymphatic: Hematologic/Lymphatic: Reports no additional hematologic/lymphatic complaints <JUANITO Bledsoe - Last Filed: 11/15/21 19:00> Allergic/Immunologic: Allergic/Immunologic: Reports no additional allergic/immunologic complaints <JUANITO Bledsoe - Last Filed: 11/15/21 19:00> [facility] Past Medical History Attestation statement: The following information was validated with the patient. <JUANITO Bledsoe - Last Filed: 11/15/21 19:00> Source: old records reviewed <JUANITO Bledsoe - Last Filed: 11/15/21 19:00> Medical History: Medical History Acute post-traumatic stress disorder Adjustment disorder Anxiety Asthma Borderline personality disorder Chronic post-traumatic stress disorder (PTSD) COPD (chronic obstructive pulmonary disease) Depression GERD (gastroesophageal reflux disease) Increased BMI Injury, self-inflicted Intentional self-harm PTSD (post-traumatic stress disorder) Recurrent major depression-severe Schizoaffective disorder Self-harming behavior Suicidal ideation Suicidal ideation <JUANITO Bledsoe - Last Filed: 11/15/21 19:00> Social History Social History: Social History Household Members: Other Household Members Other:: long-term Housing: Other Housing Other:: long-term Do you presently have visiting nurse or other home services: No Alcohol intake: never Patient Tobacco Use Status: Former Tobacco user Quit Date: 02-19-21 Tobacco use type: Cigarette Cigarette Packs Per Day: 1 Cigarettes Per Day: 20.0 Years Smoked: 17 e-Cigarette/Vaping Use: Never Used Second Hand Smoke Exposure: Yes Substance Use Type: Marijuana Advance Directives: No Advance Directives Information Provided: No service: No Sexual orientation: Don't Know <JUANITO Bledsoe - Last Filed: 11/15/21 19:00> Physical Exam ED Vital Signs: Vital Signs - 24 hr 11/16/21 21:48 Temperature 99.3 F Pulse Rate 81 Respiratory Rate 16 Blood Pressure 146/85 H Pulse Oximetry 95 BMI result Body Mass Index 54.4 <JUANITO Bledsoe Last Filed: 11/15/21 19:00> Vital Signs - 24 hr 11/16/21 21:48 Temperature 99.3 F Pulse Rate 81 Respiratory Rate 16 Blood Pressure 146/85 H Pulse Oximetry 95 BMI result Body Mass Index 54.4 <JUANITO Cuevas - Last Filed: 11/16/21 20:56> Vital Signs - 24 hr 11/16/21 21:48 Temperature 99.3 F Pulse Rate 81 Respiratory Rate 16 Blood Pressure 146/85 H Pulse Oximetry 95 BMI result Body Mass Index 54.4 <JUANITO Collado Last Filed: 11/17/21 08:11> Const General: cooperative, no acute distress, alert and awake <JUANITO Bledsoe Last Filed: 11/15/21 19:00> Nutritional Appearance: well nourished <JUANITO Bledsoe Last Filed: 11/15/21 19:00> Orientation/consciousness: patient oriented x3 <JUANITO Bledsoe Last Filed: 11/15/21 19:00> Limitations: no limitations <JUANITO Bledsoe Last Filed: 11/15/21 19:00> HENMT Head: Yes normal to inspection and Yes atraumatic <JUANITO Bledsoe Last Filed: 11/15/21 19:00> Ears: hearing grossly normal bilaterally and external ears normal <JUANITO Bledsoe Last Filed: 11/15/21 19:00> General nose exam: Normal external nose present, no nasal discharge noted and no epistaxis <JUANITO Bledsoe Last Filed: 11/15/21 19:00> Face and sinus: Yes normal facial exam, No abrasion and No laceration <JUANITO Bledsoe Last Filed: 11/15/21 19:00> Mouth: Normal oral and palatal mucosa present, no drooling and no muffled voice <JUANITO Bledsoe Last Filed: 11/15/21 19:00> Eyes General: appearance normal, both eyes and all related structures <JUANITO Bledsoe Last Filed: 11/15/21 19:00> Periorbital: periorbital findings normal <Kaylee JUANITO Hilario - Last Filed: 11/15/21 19:00> Eyelids: Yes eyelids normal <Kaylee JUANITO Hilario - Last Filed: 11/15/21 19:00> Conjunctivae: conjunctivae normal <Kaylee MonterrosoJUANITO haile - Last Filed: 11/15/21 19:00> Pupils: Equal, round and reactive pupils present <JUANITO Bledsoe - Last Filed: 11/15/21 19:00> EOM: EOMs intact bilaterally <Kaylee JUANITO Hilario - Last Filed: 11/15/21 19:00> Neck Neck: Yes normal visual inspection, Yes full ROM and Yes no lymphadenopathy <JUANITO Bledsoe - Last Filed: 11/15/21 19:00> Chest Chest palpation & inspection: normal inspection of the chest <JUANITO Bledsoe - Last Filed: 11/15/21 19:00> Resp Effort & Inspection: normal respiratory effort and able to speak in complete sentences <JUANITO Bledsoe - Last Filed: 11/15/21 19:00> Auscultation: clear to auscultation bilaterally <JUANITO Bledsoe - Last Filed: 11/15/21 19:00> Cardio Rate: regular rate <JUANITO Bledsoe - Last Filed: 11/15/21 19:00> Rhythm: regular rhythm <JUANITO Bledsoe - Last Filed: 11/15/21 19:00> GI Inspection: Yes normal to inspection <JUANITO Bledsoe - Last Filed: 11/15/21 19:00> Skin Other: extensive scarring to bilateral forearms from self-harm cutting. Patient has several, superficial cuts to her bilateral forearms that are not gaping or actively bleeding at this time. <JUANITO Bledsoe - Last Filed: 11/15/21 19:00> Neuro General: patient oriented x3 and moves all extremities <JUANITO Bledsoe - Last Filed: 11/15/21 19:00> Cranial nerves: Yes Equal, round and reactive pupils present <JUANITO Bledsoe - Last Filed: 11/15/21 19:00> Cognition (Neuro): normal cognition <JUANITO Bledsoe - Last Filed: 11/15/21 19:00> Motor exam (neuro): 5/5 motor strength present throughout <JUANITO Bledsoe - Last Filed: 11/15/21 19:00> Sensory Exam: Normal double simultaneous stimulation for sensation <JUANITO Bledsoe - Last Filed: 11/15/21 19:00> Coordination: [id number] test normal <JUANITO Bledsoe - Last Filed: 11/15/21 19:00> Extrem General: Yes normal to inspection, Yes full ROM and Yes capillary refill normal <JUANITO Bledsoe - Last Filed: 11/15/21 19:00> Psych Appearance: grossly normal <JUANITO Bledsoe - Last Filed: 11/15/21 19:00> Mental Status: mental status grossly normal <JUANITO Bledsoe Last Filed: 11/15/21 19:00> Affect: Sad affect present <JUANITO Bledsoe Last Filed: 11/15/21 19:00> Attitude: Guarded attititude/behavior present <JUANITO Bledsoe Last Filed: 11/15/21 19:00> Thought process: Normal thought process present <JUANITO Bledsoe Last Filed: 11/15/21 19:00> Thought content: Depressive thoughts present <JUANITO Bledsoe Last Filed: 11/15/21 19:00> Course Reevaluation(s) Reevaluation #1: Spoke to the behavioral health team who tells me that patient should be observed overnight, plan is for patient to be discharged back to long-term tomorrow morning. He did speak to the long-term who agrees with this plan. Will continue to monitor. <JUANITO Cuevas - Last Filed: 11/16/21 20:56> Reevaluation #2: Patient re-evaluated this morning. She would like to go home. No acute overnight events and seems to be at her baseline. Will d/c back to long-term with plan for outpatient follow up. <JUANTIO Collado - Last Filed: 11/17/21 08:11> Medical Decision Making MDM Narrative Medical decision making narrative: Patient is a 36 year old female presenting to the emergency department today after self harm. Patient's physical exam showed a flat affected individual with extensive scarring to the bilateral forearms from self harm cutting. Additionally, patient had multiple superficial cuts to her bilateral forearms secondary to more self-harm behavior. None of the lacerations were gaping or actively bleeding. Patient's blood work is pending at this time. Patient is awaiting behavioral health evaluation for possible psychiatric admission. Patient began to strike herself in the head and PO Ativan and Zyprexa was ordered. Patient took the medication but continued to be aggressive. IM Ativan and Zyprexa were ordered and given. <JUANITO Bledsoe - Last Filed: 11/15/21 19:00> Differential Diagnosis Differential Diagnosis: self-harm behavior, suicidal ideation <JUANITO Bledsoe - Last Filed: 11/15/21 19:00> Medical Records Medical records reviewed: Yes I reviewed the patient's medical records. <JUANITO Bledsoe - Last Filed: 11/15/21 19:00> Lab Data Result diagrams: : 11/15/21 21:10 11/15/21 21:10 <JUANITO Bledsoe - Last Filed: 11/15/21 19:00> Labs: Lab Results 11/15/21 11/15/21 11/16/21 Range/Units 21:10 21:10 07:05 WBC 12.5 H (4.8-10.8) X10*3/uL RBC 3.89 L (4.20-5.50) X10*6/uL Hgb 10.4 L (12.0-16.0) g/dl Hct 32.9 L (37.0-47.0) % MCV 84.6 (80.0-98.0) fL MCH 26.7 L (27.0-33.0) pg MCHC 31.6 (31.0-35.0) g/dl RDW 15.9 (11.0-16.0) % Plt Count 294 (160-400) X10*3/uL MPV 10.9 (9.4-12.3) fL Immature Gran % (Auto) 0.4 (0.0-0.4) % Neut % (Auto) 57.4 (45-73) % Lymph % (Auto) 36.7 (20-40) % [place] % (Auto) 5.0 (2-11) % Eos % (Auto) 0.2 (0-4) % Baso % (Auto) 0.3 (0-2) % Lymph # (Auto) 4.6 (1.2-4.9) X10*3/uL [place] # (Auto) 0.6 (0.1-1.2) X10*3/uL Eos # (Auto) 0.0 (0.0-0.4) X10*3/uL Baso # (Auto) 0.0 (0.0-0.2) X10*3/uL Abs Immat Gran (auto) 0.05 H (0.00-0.03) X10*3/uL Absolute Neuts (auto) 7.2 (2.0-8.3) x10*3/uL Absolute Nucleated RBC 0.000 (0.0-0.012) X10*3/uL Nucleated RBC % (auto) 0.0 (0.0-0.2) /100WBC Sodium 140 (135-145) mmol/L Potassium 3.3 (3.3-5.1) mmol/L Chloride 112 H (96-108) mmol/L Carbon Dioxide 23 (22-29) mmol/L Anion Gap 8 L (12-20) BUN 13 (9-16) mg/dL Creatinine 0.82 (0.5-1.4) mg/dL Estim Creat Clear Calc 113.1 Estimated GFR > 60 Random Glucose 112 (60-115) mg/dL Calcium 8.9 (8.4-10.2) mg/dL Total Bilirubin 0.2 (0.0-1.0) mg/dL AST 10 (5-31) U/L ALT 16 (0-31) U/L Alkaline Phosphatase 66 (39-117) U/L Total Protein 5.8 L (6.5-8.0) g/dL Albumin 3.6 (3.5-5.0) g/dL Urine Opiates Screen (Not Detect) Urine Fentanyl Screen (Not Detect) Ur Barbiturates Screen (Not Detect) Ur Phencyclidine Scrn (Not Detect) Ur Amphetamines Screen (Not Detect) U Benzodiazepines Scrn (Not Detect) Urine Cocaine Screen (Not Detect) U Marijuana (THC) Screen (Not Detect) COVID-19 (RAFAL) Negative (Negative) COVID-19 Clin Com See Note 11/16/21 Range/Units 11:05 WBC (4.8-10.8) X10*3/uL RBC (4.20-5.50) X10*6/uL Hgb (12.0-16.0) g/dl Hct (37.0-47.0) % MCV (80.0-98.0) fL MCH (27.0-33.0) pg MCHC (31.0-35.0) g/dl RDW (11.0-16.0) % Plt Count (160-400) X10*3/uL MPV (9.4-12.3) fL Immature Gran % (Auto) (0.0-0.4) % Neut % (Auto) (45-73) % Lymph % (Auto) (20-40) % [place] % (Auto) (2-11) % Eos % (Auto) (0-4) % Baso % (Auto) (0-2) % Lymph # (Auto) (1.2-4.9) X10*3/uL [place] # (Auto) (0.1-1.2) X10*3/uL Eos # (Auto) (0.0-0.4) X10*3/uL Baso # (Auto) (0.0-0.2) X10*3/uL Abs Immat Gran (auto) (0.00-0.03) X10*3/uL Absolute Neuts (auto) (2.0-8.3) x10*3/uL Absolute Nucleated RBC (0.0-0.012) X10*3/uL Nucleated RBC % (auto) (0.0-0.2) /100WBC Sodium (135-145) mmol/L Potassium (3.3-5.1) mmol/L Chloride (96-108) mmol/L Carbon Dioxide (22-29) mmol/L Anion Gap (12-20) BUN (9-16) mg/dL Creatinine (0.5-1.4) mg/dL Estim Creat Clear Calc Estimated GFR Random Glucose (60-115) mg/dL Calcium (8.4-10.2) mg/dL Total Bilirubin (0.0-1.0) mg/dL AST (5-31) U/L ALT (0-31) U/L Alkaline Phosphatase (39-117) U/L Total Protein (6.5-8.0) g/dL Albumin (3.5-5.0) g/dL Urine Opiates Screen Not Detected (Not Detect) Urine Fentanyl Screen POSITIVE H (Not Detect) Ur Barbiturates Screen Not Detected (Not Detect) Ur Phencyclidine Scrn Not Detected (Not Detect) Ur Amphetamines Screen Not Detected (Not Detect) U Benzodiazepines Scrn Not Detected (Not Detect) Urine Cocaine Screen Not Detected (Not Detect) U Marijuana (THC) Screen POSITIVE H (Not Detect) COVID-19 (RAFAL) (Negative) COVID-19 Clin Com <JUANITO Bledsoe - Last Filed: 11/15/21 19:00> Lab Results 11/15/21 11/15/21 11/16/21 Range/Units 21:10 21:10 07:05 WBC 12.5 H (4.8-10.8) X10*3/uL RBC 3.89 L (4.20-5.50) X10*6/uL Hgb 10.4 L (12.0-16.0) g/dl Hct 32.9 L (37.0-47.0) % MCV 84.6 (80.0-98.0) fL MCH 26.7 L (27.0-33.0) pg MCHC 31.6 (31.0-35.0) g/dl RDW 15.9 (11.0-16.0) % Plt Count 294 (160-400) X10*3/uL MPV 10.9 (9.4-12.3) fL Immature Gran % (Auto) 0.4 (0.0-0.4) % Neut % (Auto) 57.4 (45-73) % Lymph % (Auto) 36.7 (20-40) % [place] % (Auto) 5.0 (2-11) % Eos % (Auto) 0.2 (0-4) % Baso % (Auto) 0.3 (0-2) % Lymph # (Auto) 4.6 (1.2-4.9) X10*3/uL [place] # (Auto) 0.6 (0.1-1.2) X10*3/uL Eos # (Auto) 0.0 (0.0-0.4) X10*3/uL Baso # (Auto) 0.0 (0.0-0.2) X10*3/uL Abs Immat Gran (auto) 0.05 H (0.00-0.03) X10*3/uL Absolute Neuts (auto) 7.2 (2.0-8.3) x10*3/uL Absolute Nucleated RBC 0.000 (0.0-0.012) X10*3/uL Nucleated RBC % (auto) 0.0 (0.0-0.2) /100WBC Sodium 140 (135-145) mmol/L Potassium 3.3 (3.3-5.1) mmol/L Chloride 112 H (96-108) mmol/L Carbon Dioxide 23 (22-29) mmol/L Anion Gap 8 L (12-20) BUN 13 (9-16) mg/dL Creatinine 0.82 (0.5-1.4) mg/dL Estim Creat Clear Calc 113.1 Estimated GFR > 60 Random Glucose 112 (60-115) mg/dL Calcium 8.9 (8.4-10.2) mg/dL Total Bilirubin 0.2 (0.0-1.0) mg/dL AST 10 (5-31) U/L ALT 16 (0-31) U/L Alkaline Phosphatase 66 (39-117) U/L Total Protein 5.8 L (6.5-8.0) g/dL Albumin 3.6 (3.5-5.0) g/dL Urine Opiates Screen (Not Detect) Urine Fentanyl Screen (Not Detect) Ur Barbiturates Screen (Not Detect) Ur Phencyclidine Scrn (Not Detect) Ur Amphetamines Screen (Not Detect) U Benzodiazepines Scrn (Not Detect) Urine Cocaine Screen (Not Detect) U Marijuana (THC) Screen (Not Detect) COVID-19 (RAFAL) Negative (Negative) COVID-19 Clin Com See Note 11/16/21 Range/Units 11:05 WBC (4.8-10.8) X10*3/uL RBC (4.20-5.50) X10*6/uL Hgb (12.0-16.0) g/dl Hct (37.0-47.0) % MCV (80.0-98.0) fL MCH (27.0-33.0) pg MCHC (31.0-35.0) g/dl RDW (11.0-16.0) % Plt Count (160-400) X10*3/uL MPV (9.4-12.3) fL Immature Gran % (Auto) (0.0-0.4) % Neut % (Auto) (45-73) % Lymph % (Auto) (20-40) % [place] % (Auto) (2-11) % Eos % (Auto) (0-4) % Baso % (Auto) (0-2) % Lymph # (Auto) (1.2-4.9) X10*3/uL [place] # (Auto) (0.1-1.2) X10*3/uL Eos # (Auto) (0.0-0.4) X10*3/uL Baso # (Auto) (0.0-0.2) X10*3/uL Abs Immat Gran (auto) (0.00-0.03) X10*3/uL Absolute Neuts (auto) (2.0-8.3) x10*3/uL Absolute Nucleated RBC (0.0-0.012) X10*3/uL Nucleated RBC % (auto) (0.0-0.2) /100WBC Sodium (135-145) mmol/L Potassium (3.3-5.1) mmol/L Chloride (96-108) mmol/L Carbon Dioxide (22-29) mmol/L Anion Gap (12-20) BUN (9-16) mg/dL Creatinine (0.5-1.4) mg/dL Estim Creat Clear Calc Estimated GFR Random Glucose (60-115) mg/dL Calcium (8.4-10.2) mg/dL Total Bilirubin (0.0-1.0) mg/dL AST (5-31) U/L ALT (0-31) U/L Alkaline Phosphatase (39-117) U/L Total Protein (6.5-8.0) g/dL Albumin (3.5-5.0) g/dL Urine Opiates Screen Not Detected (Not Detect) Urine Fentanyl Screen POSITIVE H (Not Detect) Ur Barbiturates Screen Not Detected (Not Detect) Ur Phencyclidine Scrn Not Detected (Not Detect) Ur Amphetamines Screen Not Detected (Not Detect) U Benzodiazepines Scrn Not Detected (Not Detect) Urine Cocaine Screen Not Detected (Not Detect) U Marijuana (THC) Screen POSITIVE H (Not Detect) COVID-19 (RAFAL) (Negative) COVID-19 Clin Com <JUANITO Cuevas - Last Filed: 11/16/21 20:56> Lab Results 11/15/21 11/15/21 11/16/21 Range/Units 21:10 21:10 07:05 WBC 12.5 H (4.8-10.8) X10*3/uL RBC 3.89 L (4.20-5.50) X10*6/uL Hgb 10.4 L (12.0-16.0) g/dl Hct 32.9 L (37.0-47.0) % MCV 84.6 (80.0-98.0) fL MCH 26.7 L (27.0-33.0) pg MCHC 31.6 (31.0-35.0) g/dl RDW 15.9 (11.0-16.0) % Plt Count 294 (160-400) X10*3/uL MPV 10.9 (9.4-12.3) fL Immature Gran % (Auto) 0.4 (0.0-0.4) % Neut % (Auto) 57.4 (45-73) % Lymph % (Auto) 36.7 (20-40) % [place] % (Auto) 5.0 (2-11) % Eos % (Auto) 0.2 (0-4) % Baso % (Auto) 0.3 (0-2) % Lymph # (Auto) 4.6 (1.2-4.9) X10*3/uL [place] # (Auto) 0.6 (0.1-1.2) X10*3/uL Eos # (Auto) 0.0 (0.0-0.4) X10*3/uL Baso # (Auto) 0.0 (0.0-0.2) X10*3/uL Abs Immat Gran (auto) 0.05 H (0.00-0.03) X10*3/uL Absolute Neuts (auto) 7.2 (2.0-8.3) x10*3/uL Absolute Nucleated RBC 0.000 (0.0-0.012) X10*3/uL Nucleated RBC % (auto) 0.0 (0.0-0.2) /100WBC Sodium 140 (135-145) mmol/L Potassium 3.3 (3.3-5.1) mmol/L Chloride 112 H (96-108) mmol/L Carbon Dioxide 23 (22-29) mmol/L Anion Gap 8 L (12-20) BUN 13 (9-16) mg/dL Creatinine 0.82 (0.5-1.4) mg/dL Estim Creat Clear Calc 113.1 Estimated GFR > 60 Random Glucose 112 (60-115) mg/dL Calcium 8.9 (8.4-10.2) mg/dL Total Bilirubin 0.2 (0.0-1.0) mg/dL AST 10 (5-31) U/L ALT 16 (0-31) U/L Alkaline Phosphatase 66 (39-117) U/L Total Protein 5.8 L (6.5-8.0) g/dL Albumin 3.6 (3.5-5.0) g/dL Urine Opiates Screen (Not Detect) Urine Fentanyl Screen (Not Detect) Ur Barbiturates Screen (Not Detect) Ur Phencyclidine Scrn (Not Detect) Ur Amphetamines Screen (Not Detect) U Benzodiazepines Scrn (Not Detect) Urine Cocaine Screen (Not Detect) U Marijuana (THC) Screen (Not Detect) COVID-19 (RAFAL) Negative (Negative) COVID-19 Clin Com See Note 11/16/21 Range/Units 11:05 WBC (4.8-10.8) X10*3/uL RBC (4.20-5.50) X10*6/uL Hgb (12.0-16.0) g/dl Hct (37.0-47.0) % MCV (80.0-98.0) fL MCH (27.0-33.0) pg MCHC (31.0-35.0) g/dl RDW (11.0-16.0) % Plt Count (160-400) X10*3/uL MPV (9.4-12.3) fL Immature Gran % (Auto) (0.0-0.4) % Neut % (Auto) (45-73) % Lymph % (Auto) (20-40) % [place] % (Auto) (2-11) % Eos % (Auto) (0-4) % Baso % (Auto) (0-2) % Lymph # (Auto) (1.2-4.9) X10*3/uL [place] # (Auto) (0.1-1.2) X10*3/uL Eos # (Auto) (0.0-0.4) X10*3/uL Baso # (Auto) (0.0-0.2) X10*3/uL Abs Immat Gran (auto) (0.00-0.03) X10*3/uL Absolute Neuts (auto) (2.0-8.3) x10*3/uL Absolute Nucleated RBC (0.0-0.012) X10*3/uL Nucleated RBC % (auto) (0.0-0.2) /100WBC Sodium (135-145) mmol/L Potassium (3.3-5.1) mmol/L Chloride (96-108) mmol/L Carbon Dioxide (22-29) mmol/L Anion Gap (12-20) BUN (9-16) mg/dL Creatinine (0.5-1.4) mg/dL Estim Creat Clear Calc Estimated GFR Random Glucose (60-115) mg/dL Calcium (8.4-10.2) mg/dL Total Bilirubin (0.0-1.0) mg/dL AST (5-31) U/L ALT (0-31) U/L Alkaline Phosphatase (39-117) U/L Total Protein (6.5-8.0) g/dL Albumin (3.5-5.0) g/dL Urine Opiates Screen Not Detected (Not Detect) Urine Fentanyl Screen POSITIVE H (Not Detect) Ur Barbiturates Screen Not Detected (Not Detect) Ur Phencyclidine Scrn Not Detected (Not Detect) Ur Amphetamines Screen Not Detected (Not Detect) U Benzodiazepines Scrn Not Detected (Not Detect) Urine Cocaine Screen Not Detected (Not Detect) U Marijuana (THC) Screen POSITIVE H (Not Detect) COVID-19 (RAFAL) (Negative) COVID-19 Clin Com <JUANITO Collado - Last Filed: 11/17/21 08:11> Discharge Plan Discharge Clinical Impression: Deliberate self-cutting, Schizoaffective disorder <JUANITO Bledsoe - Last Filed: 11/15/21 19:00> Patient Disposition: Home, Self-Care <JUANITO Bledsoe - Last Filed: 11/15/21 19:00> Instructions: Schizoaffective Disorder (ED) <JUANITO Bledsoe - Last Filed: 11/15/21 19:00> Additional Instructions: take all of your medications as prescribed follow up with your providers and therapist as soon as possible <JUANITO Bledsoe - Last Filed: 11/15/21 19:00> Prescriptions: No Action omeprazole 20 mg capsule,delayed release(DR/EC) 20 mg PO DAILY 0RF cetirizine 10 mg Tablet 10 mg PO DAILY 0RF topiramate 25 mg tablet 25 mg PO BID 0RF fluticasone propion-salmeterol [Advair Diskus] 250-50 mcg/dose blister with device 1 puff inhalation BID 0RF duloxetine 60 mg capsule,delayed release(DR/EC) 1 cap PO QAM 0RF diphenhydramine HCl [Banophen] 50 mg capsule 2 cap PO BEDTIME 0RF ferrous sulfate 325 mg (65 mg iron) tablet,delayed release (DR/EC) 1 tab PO QAM 0RF fluticasone propionate 50 mcg/actuation spray,suspension 2 spray intranasal DAILY 0RF prazosin 5 mg Capsule 20 mg PO BEDTIME 30 Days Qty: 120 0RF Protocol: Hold for SBP< HOLD for SBP < : 90 nicotine (polacrilex) [Nicorette] 2 mg gum 2 mg buccal Q2H PRN (Reason: Nicotine Cravings) 0RF mirtazapine 15 mg tablet 15 mg PO BEDTIME 0RF trazodone 50 mg tablet 100 mg PO BEDTIME PRN (Reason: Insomnia) 0RF hydroxyzine pamoate 50 mg capsule 50 mg PO BID PRN (Reason: anxiety) 0RF albuterol sulfate 2.5 mg /3 mL (0.083 %) Solution For Nebulization 2.5 mg INHALATION Q4H PRN (Reason: Shortness Of Breath) 0RF acetaminophen 500 mg Tablet 500 mg PO Q6H PRN (Reason: Pain (Scale Score 1-3)) 0RF benztropine 0.5 mg Tablet 0.5 mg PO BID 30 Days Qty: 60 0RF haloperidol 5 mg Tablet 5 mg PO TID 30 Days Qty: 90 0RF haloperidol decanoate 50 mg/mL Solution 75 mg IM Q28D@1300 28 Days Qty: 1.5 0RF ammonium lactate 12 % Cream 1 appl topical BID PRN (Reason: Dry Skin) 30 Days Qty: 140 0RF Protocol: Apply to: Apply to: bilateral feet lithium carbonate 300 mg tablet 300 mg PO BID 0RF <JUANITO Bledsoe - Last Filed: 11/15/21 19:00> Print Language: Kinyarwanda <JUANITO Bledsoe - Last Filed: 11/15/21 19:00>
[2021-11-15 18:08] VITALS: BP 138/92; BP 148/100; PULSE 87; PULSE 88; RESP 14; TEMP 36.7; O2SAT 100; O2SAT 99; BMI 54.4
[2021-11-15] MEDS: OLANZapine 10 MG TABLET PO (18:29)
[2021-11-15] MEDS: LORazepam 1 MG TABLET 2 MG PO (18:29)
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
[2021-11-15] MEDS: LORazepam 2 MG/ML VIAL IM (19:08)
[2021-11-15] MEDS: OLANZapine 10 MG VIAL IM (19:08)
--- NOTE | 2021-11-15 19:43 | PC.NURSE ---
1814 pt brought over to pod and changed over into lilli upon arrival with security present. belongings locked up and pt moved into room 4. t/w noticed pts dressings to her arms and called the battery recharger to ask for a 1:1 help desk support as the dressings are a ligature risk. pt began hitting herself in the head and scratching at her arms and previous cuts causing more blood. t/w and PCT Soraida at bedside with pt to assist her and prevent her from further self harm. when pt was more calm, t/w stepped out to ask for medication. PO medication order 10mg Zyprexa and 2mg Ativan obtained and given to pt per OCT. Soraida PCT remained bedside with t/w as we talked pt through her difficult time, provided ice to the pts neck and discussed breathing skills. t/w able to step out after approx 15 min working with pt and providing coping skills.
--- NOTE | 2021-11-15 19:47 | PC.NURSE ---
at appox 1900 security was called to the POD to assist with the pt who was hitting her head against the wall and not accepting redirection from staff. two PCT in the room attempted to redirect pt and discontinue her from harming herself further. when security arrived in the room they assisted in reposition of pt for pt and staff safety as well as further prevent pt from harming herself. t/w obtained further orders from provider Bev SOLOMON for IM medication order. pt accepted IM medication order without need for hands on intervention. pt at this time on a one to one, in room, resting in bed. medication restraint paperwork completed.
[2021-11-15 19:53] VITALS: RESP 16
[2021-11-15 20:08] VITALS: RESP 16
[2021-11-15 21:14] LABS: MANUAL DIFF FLAG NO
[2021-11-15 21:34] LABS: Basophils Percent Auto 0.3 % (0-2); Eosinophils Percent Auto 0.2 % (0-4); Hematocrit 32.9 % (37.0-47.0); Hemoglobin 10.4 g/dl (12.0-16.0); Imm Gran Abs Auto 0.05 X10*3/uL (0.00-0.03); Imm Gran Pct Auto 0.4 % (0.0-0.4); Lymphocytes Absolute Auto 4.6 X10*3/uL (1.2-4.9); Lymphocytes Percent Auto 36.7 % (20-40); Mean Corpuscular HGB Conc 31.6 g/dl (31.0-35.0); Mean Corpuscular Hemoglobin 26.7 pg (27.0-33.0); Mean Corpuscular Volume 84.6 fL (80.0-98.0); Mean Platelet Volume 10.9 fL (9.4-12.3); Monocytes Absolute Auto 0.6 X10*3/uL (0.1-1.2); Neutrophils Absolute Auto 7.2 x10*3/uL (2.0-8.3); Neutrophils Percent Auto 57.4 % (45-73); Platelet Count 294 X10*3/uL (160-400); Red Blood Count 3.89 X10*6/uL (4.20-5.50); Red Cell Distribution Width 15.9 % (11.0-16.0); White Blood Count 12.5 X10*3/uL (4.8-10.8)
[2021-11-15 21:36] LABS: Alanine Aminotransferase 16 U/L (0-31); Albumin Level 3.6 g/dL (3.5-5.0); Alkaline Phosphatase 66 U/L (39-117); Anion Gap 8 (12-20); Aspartate Amino Transferase 10 U/L (5-31); Bilirubin Total 0.2 mg/dL (0.0-1.0); Blood Urea Nitrogen 13 mg/dL (9-16); Calcium 8.9 mg/dL (8.4-10.2); Carbon Dioxide 23 mmol/L (22-29); Chloride 112 mmol/L (96-108); Creatinine Clr Calc Pharmacy 113.1; Estimated Glomerular Filt Rate > 60; Glucose Random 112 mg/dL (60-115); Potassium 3.3 mmol/L (3.3-5.1); Sodium 140 mmol/L (135-145); Total Protein 5.8 g/dL (6.5-8.0)
[2021-11-16 07:06] VITALS: BP 107/65; PULSE 84; RESP 12; O2SAT 95
[2021-11-16 07:25] LABS: COVID-19 Test Negative (Negative); IDNOW Serial# 16C4AD1C
--- NOTE | 2021-11-16 07:25 | PC.NURSE ---
Patient slept through the night, patient s/p chemical restraint with + effect, patient was observed on 1:1 for safety, BHN assessed the patient, disposition section 12 inpatient bed search, med rec completed/pending provider's approval, behavior non concerning at this time, will continue to monitor.
[2021-11-16 11:29] LABS: Amphetamine Screen Urine Not Detected (Not Detect); Barbiturates, Urine Not Detected (Not Detect); Benzodiazepines Screen Urine Not Detected (Not Detect); Cannabinoid Screen Urine POSITIVE (Not Detect); Cocaine Screen Urine Not Detected (Not Detect); Fentanyl, urine POSITIVE (Not Detect); Opiate Screen Urine Not Detected (Not Detect); Phencyclidine Screen Urine Not Detected (Not Detect)
[2021-11-16] MEDS: LORazepam 1 MG TABLET 2 MG PO ×2 (14:43→21:48)
[2021-11-16 21:48] VITALS: BP 146/85; PULSE 81; RESP 16; TEMP 37.4; O2SAT 95
[2021-11-16] MEDS: Prazosin HCL 5 MG CAPSULE 20 MG PO (21:48)
[2021-11-16] MEDS: Benztropine Mesylate 0.5 MG TABLET PO (21:48)
[2021-11-16] MEDS: Lithium Carbonate 300 MG CAPSULE PO (21:48)
[2021-11-16] MEDS: Mirtazapine 15 MG TABLET PO (21:48)
[2021-11-16] MEDS: Topiramate 25 MG TABLET PO (21:48)
[2021-11-16] MEDS: diphenhydrAMINE HCL 25 MG TABLET 100 MG PO (21:48)
[2021-11-16] MEDS: HaloperidoL 5 MG TABLET PO (21:49)
[2021-11-16] MEDS: traZODone HCL 100 MG TABLET PO (21:49)
--- NOTE | 2021-11-17 07:24 | PC.NURSE ---
Patient slept through the night, no distress observed/reported, behavior non concerning, medication compliant, disposition per [facility] is section 12 inpatient bed search, patient is observed on 1:1 for safety, care team will coordinate ride if patient decides to go back to retirement, VSS, will continue to monitor.
[2021-11-17] MEDS: Topiramate 25 MG TABLET PO (07:47)
[2021-11-17] MEDS: HaloperidoL 5 MG TABLET PO (07:47)
[2021-11-17] MEDS: Benztropine Mesylate 0.5 MG TABLET PO (07:48)
[2021-11-17] MEDS: Ferrous Sulfate 324 MG TABLET.DR PO (07:48)
[2021-11-17] MEDS: Omeprazole 20 MG CAPSULE.DR PO (07:48)
[2021-11-17] MEDS: DULoxetine HCl 60 MG CAPSULE.DR PO (07:48)
[2021-11-17] MEDS: Loratadine 10 MG TABLET PO (07:48)
--- NOTE | 2021-11-17 08:19 | PC.NURSE ---
Pt Awake, calm and cooperative at this time, per CARE team, plan to DC back to assisted. Ride booked with care team. Pt medicated as per MAR orders prior to DC.
--- NOTE | 2021-11-17 10:04 | MHC.CARE ---
CARE Team spoke with [facility] Film Library Clerk Sandip- who reported Pt had plan to discharge to [facility] this morning an staff at [facility] were already aware of plan. CARE Team notified JUANITO Manzano regarding plan of care.
== END 2021-11-17 08:20 | disposition home or self-care (01) ==
PROVIDERS: Physician Assistant Medical; Student in an Organized Health Care Education/Training Program; Emergency Provider Emergency Medicine
DX: S51.812A Laceration without foreign body of left forearm, initial encounter (principal); S51.811A Laceration without foreign body of right forearm, initial encounter; X78.8XXA Intentional self-harm by other sharp object, initial encounter; F25.9 Schizoaffective disorder, unspecified; F41.9 Anxiety disorder, unspecified; F60.3 Borderline personality disorder; F43.20 Adjustment disorder, unspecified; F43.11 Post-traumatic stress disorder, acute; F43.12 Post-traumatic stress disorder, chronic; Z91.51 Personal history of suicidal behavior; F12.90 Cannabis use, unspecified, uncomplicated; Y93.89 Activity, other specified; Y92.049 Unspecified place in boarding-house as the place of occurrence of the external cause; Y99.9 Unspecified external cause status; Z20.822 Contact with and (suspected) exposure to COVID-19; Z79.899 Other long term (current) drug therapy
CPT/HCPCS: 36415; 80053; 80307; 85025; 87635; 96372; 99284; 99285; J2060; Q0163

== ENCOUNTER 2021-11-17 11:28 | Emergency (ER) | payer OTHER, SELFPAY ==
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
== END 2021-11-17 12:48 | disposition home or self-care (01) ==
LOC: HO.ED 12:38
PROVIDERS: Emergency Provider Emergency Medicine; PCP Pediatrics
DX: L03.113 Cellulitis of right upper limb (principal); Z48.02 Encounter for removal of sutures; S51.812D Laceration without foreign body of left forearm, subsequent encounter; X78.9XXD Intentional self-harm by unspecified sharp object, subsequent encounter

== ENCOUNTER 2021-12-09 22:19 | Emergency (ER) | payer OTHER, SELFPAY ==
--- NOTE | ~2021-12-09 | XR_ITS ---
EXAMINATION: XR CHEST CLINICAL INFORMATION: Chest pain COMPARISON: Chest x-ray 10/18/2021 TECHNIQUE: Frontal view of the chest was obtained. 11:30 PM FINDINGS: Left IJ catheter central port tip in superior vena cava unchanged position since prior study. Heart size is normal. Cardiac mediastinal contours are normal. No pulmonary vascular congestion. Lungs are clear. No pleural effusion or pneumothorax. XR/XR chest 1V IMPRESSION: No acute abnormality of chest.
--- NOTE | 2021-12-09 22:32 | ECG_ITS ---
Test Reason : CP Blood Pressure : / mmHG Vent. Rate : 116 BPM Atrial Rate : 116 BPM P-R Int : 140 ms QRS Dur : 072 ms QT Int : 320 ms P-R-T Axes : 066 090 039 degrees QTc Int : 444 ms Sinus tachycardia Right atrial enlargement Rightward axis Borderline ECG When compared with ECG of 18-OCT-2021 16:12, change in axis, increase in rate. Referred By: Generic ED Physician Electronically Signed By:LIZET ANN
[2021-12-09 22:33] VITALS: BP 148/82; PULSE 130; RESP 25; TEMP 36.4; O2SAT 98; BMI 52.2
[2021-12-09 22:48] LABS: MANUAL DIFF FLAG NO
[2021-12-09 22:50] LABS: Basophils Percent Auto 0.3 % (0-2); Eosinophils Absolute Auto 0.1 X10*3/uL (0.0-0.4); Eosinophils Percent Auto 0.9 % (0-4); Hematocrit 36.3 % (37.0-47.0); Hemoglobin 11.7 g/dl (12.0-16.0); Imm Gran Abs Auto 0.02 X10*3/uL (0.00-0.03); Imm Gran Pct Auto 0.2 % (0.0-0.4); Lymphocytes Absolute Auto 2.8 X10*3/uL (1.2-4.9); Lymphocytes Percent Auto 32.4 % (20-40); Mean Corpuscular HGB Conc 32.2 g/dl (31.0-35.0); Mean Corpuscular Hemoglobin 26.8 pg (27.0-33.0); Mean Corpuscular Volume 83.3 fL (80.0-98.0); Mean Platelet Volume 10.9 fL (9.4-12.3); Monocytes Absolute Auto 0.6 X10*3/uL (0.1-1.2); Monocytes Percent Auto 6.8 % (2-11); Neutrophils Absolute Auto 5.1 x10*3/uL (2.0-8.3); Neutrophils Percent Auto 59.4 % (45-73); Platelet Count 320 X10*3/uL (160-400); Red Blood Count 4.36 X10*6/uL (4.20-5.50); Red Cell Distribution Width 15.6 % (11.0-16.0); White Blood Count 8.6 X10*3/uL (4.8-10.8)
[2021-12-09 23:06] LABS: COVID-19 Test Negative (Negative); IDNOW Serial# 16C4AD1C
[2021-12-09 23:07] LABS: Influenza A Negative (Negative); Influenza B2 Negative (Negative)
[2021-12-09 23:08] LABS: Anion Gap 10 (12-20); Blood Urea Nitrogen 10 mg/dL (9-16); Calcium 9.5 mg/dL (8.4-10.2); Carbon Dioxide 22 mmol/L (22-29); Chloride 110 mmol/L (96-108); Creatinine Clr Calc Pharmacy 92.1; Estimated Glomerular Filt Rate > 60; Glucose Random 94 mg/dL (60-115); Potassium 3.7 mmol/L (3.3-5.1); Sodium 138 mmol/L (135-145)
[2021-12-09 23:15] LABS: Troponin-I High Sensitivity < 3.5 ng/L (<3.5-17.0)
--- NOTE | 2021-12-10 00:36 | ED_ITS ---
HPI - Chest Pain General Chief Complaint: Chest Pain Stated Complaint: vomiting Time Seen by Provider: 12/10/21 00:30 Source: patient Mode of arrival: ambulatory Limitations: no limitations History of Present Illness HPI narrative: Patient comes to the emergency room complaining of, chest pain with coughing and nausea. Patient states that she was recently treated with a Z-Mehdi and patient is still not feeling well. Patient was diagnosed with bronchitis. Patient denies fever chills, patient complaining of feeling fatigued. Related Data Home Medications Medication Instructions Recorded Confirmed omeprazole 20 mg capsule,delayed 20 mg PO DAILY 11/29/20 11/15/21 release cetirizine 10 mg tablet 10 mg PO DAILY 12/24/20 11/15/21 fluticasone 250 mcg-salmeterol 50 1 puff INHALATION BID 08/02/21 11/15/21 mcg/dose blistr powdr for inhalation (Advair Diskus) topiramate 25 mg tablet 25 mg PO BID 08/02/21 11/15/21 duloxetine 60 mg capsule,delayed 1 cap PO QAM 08/03/21 11/15/21 release acetaminophen 500 mg tablet 500 mg PO Q6H PRN 09/01/21 11/15/21 albuterol sulfate 2.5 mg INHALATION Q4H PRN 09/01/21 11/15/21 hydroxyzine pamoate 50 mg capsule 50 mg PO BID PRN 09/01/21 11/15/21 trazodone 50 mg tablet 100 mg PO BEDTIME PRN 09/01/21 11/15/21 diphenhydramine HCl 50 mg capsule 2 cap PO BEDTIME 10/03/21 11/15/21 (Banophen) ferrous sulfate 325 mg (65 mg 1 tab PO QAM 10/03/21 11/15/21 iron) tablet,delayed release fluticasone propionate 50 2 spray INTRANASAL DAILY 10/03/21 11/15/21 mcg/actuation nasal spray,suspension lithium carbonate 300 mg tablet 300 mg PO BID 10/20/21 11/15/21 nicotine (polacrilex) 2 mg gum 2 mg BUCCAL Q2H PRN 10/24/21 11/16/21 (Nicorette) mirtazapine 15 mg tablet 15 mg PO BEDTIME 11/15/21 11/15/21 Previous Rx's Medication Instructions Recorded ammonium lactate 12 % topical cream 1 appl TOPICAL BID PRN 30 Days 09/22/21 #140 g benztropine 0.5 mg tablet 0.5 mg PO BID 30 Days #60 tab 09/22/21 haloperidol 5 mg tablet 5 mg PO TID 30 Days #90 tab 09/22/21 haloperidol decanoate 50 mg/mL 75 mg (1.5 mL) IM Q28D@1300 28 09/22/21 intramuscular solution Days #1.5 ml prazosin 5 mg capsule 20 mg PO BEDTIME 30 Days #120 cap 10/09/21 cephalexin 500 mg capsule 500 mg PO TID 5 Days #15 cap 11/17/21 benzonatate 100 mg capsule 100 mg PO TID PRN #12 cap 12/10/21 ondansetron HCl 4 mg tablet 4 mg PO Q6H PRN #14 tab 12/10/21 Allergies Allergy/AdvReac Type Severity Reaction Status Date / Time carbamazepine [From TEGRETOL] AdvReac Unknown NAUSEA & Verified 12/09/21 22:36 VOMITING Review of Systems Review of Systems: Constitutional : No Weight loss, No Fever, No Chills, No Night Sweats, No Fatigue, No Malaise ENT/Mouth : No Hearing loss, No Ear Pain, No Nasal Congestion, No Sinus Pain, No Hoarseness, No sore throat, No Rhinorrhea, No Swallowing Difficulty Eyes: No Eye Pain, No Swelling, No Redness, No Foreign Body, No Discharge, No Vision Changes Cardiovascular : Complaining of chest pain with coughing, otherwise no Chest Pain, No SOB, No Dyspnea on Exertion, No Orthopnea, No Edema, No Palpitations Respiratory : Complaining of cough with phlegm, no wheezing, no shortness of breath Gastrointestinal : No Nausea, No Vomiting, No Diarrhea, No Constipation, No abdominal Pain, No Hematochezia, No Melena Genitourinary : no irregular bleeding, No Dysuria, No Urinary Frequency, No Hematuria, No Urinary Incontinence, No Urgency, No Flank Pain, No Urinary Flow Changes, No Hesitancy Musculoskeletal : No joint pain, No Myalgias, No Joint Swelling Skin : No Skin Lesions, No rash Neuro : No Weakness, No Numbness, No Paresthesias, No Loss of Consciousness, No Dizziness, No Headache Psych : No Anxiety/Panic, No Depression, No SI/HI/AH/VH, No Social Issues, Heme/Lymph: No Bruising, No Bleeding,No Lymphadenopathy Endocrine : No Polyuria, No Polydipsia, No Temperature Intolerance [facility] Past Medical History Medical History Acute post-traumatic stress disorder Adjustment disorder Anxiety Asthma Borderline personality disorder Chronic post-traumatic stress disorder (PTSD) COPD (chronic obstructive pulmonary disease) Depression GERD (gastroesophageal reflux disease) Increased BMI Injury, self-inflicted Intentional self-harm PTSD (post-traumatic stress disorder) Recurrent major depression-severe Schizoaffective disorder Self-harming behavior Suicidal ideation Suicidal ideation Social History Social History Household Members: Other Household Members Other:: correction Housing: Other Housing Other:: correction Do you presently have visiting nurse or other home services: No Alcohol intake: never Patient Tobacco Use Status: Former Tobacco user Quit Date: 02-19-21 Tobacco use type: Cigarette Cigarette Packs Per Day: 1 Cigarettes Per Day: 20.0 Years Smoked: 17 e-Cigarette/Vaping Use: Never Used Second Hand Smoke Exposure: Yes Substance Use Type: Marijuana Advance Directives: No service: No Sexual orientation: Don't Know Physical Exam Vital Signs: Vital Signs: Last Vital Signs Temp 97.5 F 12/09/21 22:33 Pulse 130 H 12/09/21 22:33 Resp 25 H 12/09/21 22:33 BP 148/82 H 12/09/21 22:33 Pulse Ox 98 12/09/21 22:33 BMI result Body Mass Index 52.2 Const: Other: Appearance: Alert. Oriented X3. No acute distress. Eyes: Pupils equal, round and reactive to light. ENT: Pharynx normal. Neck: Normal inspection. Neck supple. No lymph nodes noted. No crepitus CVS: Normal heart rate and rhythm. On physical exam, heart rate 90, Pulses normal. Normal S1 and S2 Respiratory: No respiratory distress. Breath sounds normal. No Wheezing. No rales Abdomen: Soft and nontender. No rigidity. No distention. Skin: Skin warm and dry. Normal skin color. Normal skin turgor. Extremities: No lower extremity edema. No Lacerations. No Rash Neuro: Oriented X 3. No motor deficit. No sensory deficit. Moving all extremities. No slurred speech. CN 2 through 12 grossly intact Psych: calm, cooperative, normal affect Course Course Course Narrative: Patient's white blood cell count within normal limits, no fever. I discussed with the patient that the cough will likely last for a few more weeks, gradually improving. Patient was given 1 dose of Tessalon and Zofran for nausea. Patient has not had any episodes of vomiting. I discussed with the patient that her white blood cell count is normal, chest x- ray does not show any acute abnormalities. Patient likely has a viral bronchitis, at this time, patient does not need antibiotics. Patient upset, states she was antibiotics. Discussed with the patient disadvantages over medicating with antibiotics, including antibiotic resistance. MDM - Chest Pain Lab Data Result diagrams: 12/09/21 22:42 12/09/21 22:42 Labs: Lab Results 12/09/21 12/09/21 12/09/21 Range/Units 22:42 22:42 22:42 WBC 8.6 (4.8-10.8) X10*3/uL RBC 4.36 (4.20-5.50) X10*6/uL Hgb 11.7 L (12.0-16.0) g/dl Hct 36.3 L (37.0-47.0) % MCV 83.3 (80.0-98.0) fL MCH 26.8 L (27.0-33.0) pg MCHC 32.2 (31.0-35.0) g/dl RDW 15.6 (11.0-16.0) % Plt Count 320 (160-400) X10*3/uL MPV 10.9 (9.4-12.3) fL Immature Gran % (Auto) 0.2 (0.0-0.4) % Neut % (Auto) 59.4 (45-73) % Lymph % (Auto) 32.4 (20-40) % [place] % (Auto) 6.8 (2-11) % Eos % (Auto) 0.9 (0-4) % Baso % (Auto) 0.3 (0-2) % Lymph # (Auto) 2.8 (1.2-4.9) X10*3/uL [place] # (Auto) 0.6 (0.1-1.2) X10*3/uL Eos # (Auto) 0.1 (0.0-0.4) X10*3/uL Baso # (Auto) 0.0 (0.0-0.2) X10*3/uL Abs Immat Gran (auto) 0.02 (0.00-0.03) X10*3/uL Absolute Neuts (auto) 5.1 (2.0-8.3) x10*3/uL Absolute Nucleated RBC 0.000 (0.0-0.012) X10*3/uL Nucleated RBC % (auto) 0.0 (0.0-0.2) /100WBC Sodium 138 (135-145) mmol/L Potassium 3.7 (3.3-5.1) mmol/L Chloride 110 H (96-108) mmol/L Carbon Dioxide 22 (22-29) mmol/L Anion Gap 10 L (12-20) BUN 10 (9-16) mg/dL Creatinine 0.98 (0.5-1.4) mg/dL Estim Creat Clear Calc 92.1 Estimated GFR > 60 Random Glucose 94 (60-115) mg/dL Calcium 9.5 D (8.4-10.2) mg/dL Troponin I High Sens < 3.5 (<3.5-17.0) ng/L COVID-19 (RAFAL) (Negative) COVID-19 Clin Com Influenza Type A (MARIALUISA) (Negative) Influenza Type B (MARIALUISA) (Negative) Influenza A & B Note 12/09/21 12/09/21 Range/Units 22:42 22:42 WBC (4.8-10.8) X10*3/uL RBC (4.20-5.50) X10*6/uL Hgb (12.0-16.0) g/dl Hct (37.0-47.0) % MCV (80.0-98.0) fL MCH (27.0-33.0) pg MCHC (31.0-35.0) g/dl RDW (11.0-16.0) % Plt Count (160-400) X10*3/uL MPV (9.4-12.3) fL Immature Gran % (Auto) (0.0-0.4) % Neut % (Auto) (45-73) % Lymph % (Auto) (20-40) % [place] % (Auto) (2-11) % Eos % (Auto) (0-4) % Baso % (Auto) (0-2) % Lymph # (Auto) (1.2-4.9) X10*3/uL [place] # (Auto) (0.1-1.2) X10*3/uL Eos # (Auto) (0.0-0.4) X10*3/uL Baso # (Auto) (0.0-0.2) X10*3/uL Abs Immat Gran (auto) (0.00-0.03) X10*3/uL Absolute Neuts (auto) (2.0-8.3) x10*3/uL Absolute Nucleated RBC (0.0-0.012) X10*3/uL Nucleated RBC % (auto) (0.0-0.2) /100WBC Sodium (135-145) mmol/L Potassium (3.3-5.1) mmol/L Chloride (96-108) mmol/L Carbon Dioxide (22-29) mmol/L Anion Gap (12-20) BUN (9-16) mg/dL Creatinine (0.5-1.4) mg/dL Estim Creat Clear Calc Estimated GFR Random Glucose (60-115) mg/dL Calcium (8.4-10.2) mg/dL Troponin I High Sens (<3.5-17.0) ng/L COVID-19 (RAFAL) Negative (Negative) COVID-19 Clin Com See Note Influenza Type A (MARIALUISA) Negative (Negative) Influenza Type B (MARIALUISA) Negative (Negative) Influenza A & B Note See Note Discharge Plan Discharge Clinical Impression: Acute viral bronchitis Patient Disposition: Home, Self-Care Instructions: Acute Bronchitis (ED) Additional Instructions: Please follow-up with your primary care physician tomorrow. If you have any worsening or new symptoms, please return to the emergency room or call 911 Prescriptions: New benzonatate 100 mg capsule 100 mg PO TID PRN (Reason: cough) Qty: 12 0RF ondansetron HCl 4 mg tablet 4 mg PO Q6H PRN (Reason: nausea and vomiting) Qty: 14 0RF No Action omeprazole 20 mg capsule,delayed release(DR/EC) 20 mg PO DAILY 0RF cetirizine 10 mg Tablet 10 mg PO DAILY 0RF topiramate 25 mg tablet 25 mg PO BID 0RF fluticasone propion-salmeterol [Advair Diskus] 250-50 mcg/dose blister with device 1 puff inhalation BID 0RF duloxetine 60 mg capsule,delayed release(DR/EC) 1 cap PO QAM 0RF diphenhydramine HCl [Banophen] 50 mg capsule 2 cap PO BEDTIME 0RF ferrous sulfate 325 mg (65 mg iron) tablet,delayed release (DR/EC) 1 tab PO QAM 0RF fluticasone propionate 50 mcg/actuation spray,suspension 2 spray intranasal DAILY 0RF prazosin 5 mg Capsule 20 mg PO BEDTIME 30 Days Qty: 120 0RF Protocol: Hold for SBP< HOLD for SBP < : 90 nicotine (polacrilex) [Nicorette] 2 mg gum 2 mg buccal Q2H PRN (Reason: Nicotine Cravings) 0RF mirtazapine 15 mg tablet 15 mg PO BEDTIME 0RF cephalexin 500 mg capsule 500 mg PO TID 5 Days Qty: 15 0RF trazodone 50 mg tablet 100 mg PO BEDTIME PRN (Reason: Insomnia) 0RF hydroxyzine pamoate 50 mg capsule 50 mg PO BID PRN (Reason: anxiety) 0RF albuterol sulfate 2.5 mg /3 mL (0.083 %) Solution For Nebulization 2.5 mg INHALATION Q4H PRN (Reason: Shortness Of Breath) 0RF acetaminophen 500 mg Tablet 500 mg PO Q6H PRN (Reason: Pain (Scale Score 1-3)) 0RF benztropine 0.5 mg Tablet 0.5 mg PO BID 30 Days Qty: 60 0RF haloperidol 5 mg Tablet 5 mg PO TID 30 Days Qty: 90 0RF haloperidol decanoate 50 mg/mL Solution 75 mg IM Q28D@1300 28 Days Qty: 1.5 0RF ammonium lactate 12 % Cream 1 appl topical BID PRN (Reason: Dry Skin) 30 Days Qty: 140 0RF Protocol: Apply to: Apply to: bilateral feet lithium carbonate 300 mg tablet 300 mg PO BID 0RF Interventions: ED Discharge Assessment Last Done: 12/10/21 00:55 Discharge Date/Time: 12/10/21 00:57
[2021-12-10] MEDS: Ondansetron ODT 4 MG TAB.RAPDIS TRANSLINGU (00:49)
[2021-12-10] MEDS: Benzonatate 100 MG CAPSULE 200 MG PO (00:49)
== END 2021-12-10 00:57 | disposition home or self-care (01) ==
PROVIDERS: Emergency Provider Emergency Medicine; PCP Pediatrics
DX: J20.8 Acute bronchitis due to other specified organisms (principal); J44.9 Chronic obstructive pulmonary disease, unspecified; Z20.822 Contact with and (suspected) exposure to COVID-19
CPT/HCPCS: 36415; 71045; 80048; 84484; 85025; 87502; 87635; 93005; 99283; 99284

== ENCOUNTER 2021-12-31 13:00 | Outpatient (RCR) | payer OTHER, SELFPAY ==
--- NOTE | 2021-12-18 13:50 | MHC.PT.EP ---
[facility] [place] Office [place] Office [place] Office [address] Kolby Lombardi [address] [phone] F: [phone] F: [phone] F: [phone] F: [phone] Physical Therapy Plan of Care Date of Evaluation: Date of Surgery: n/a Diagnosis: Unspecified sprain of left foot, initial encounter extensor tendonitis sprain of left foot Assessment: Pt is a pleasant 36yo F who presents to PT with L foot pain for about ~1 year. She reports pain mostly in her L heel along with mild tenderness throughout B malleolus. She presents to PT with current impairments in pain, decreased DF ROM, decreased ankle strength and stability, soft tissue restrictions, decreased balance, and impaired gait. She is TTP throughout plantar fascia. She is limited functionally by prolonged standing, prolonged walking, walking on uneven surfaces, and stair navigation. Her signs and symptoms may be consistent with plantar fasciitis. She will be seen 2x/week for 4 weeks and will be reassessed at that time. Frequency and Duration: The patient will be seen 2x/week for 4 weeks Short Term Goals: Pt will be I with HEP to promote self management of symptoms Pt will improve L DF by 5 deg Fdc Goals: Pt will tolerate standing/walking on even and uneven surfaces >30 min with minimal to no pain Pt will ascend and descend stairs with reciprocal pattern with minimal to no pain Treatment Plan: Modalities to reduce pain, spasms and effusion. Manual therapy to restore motion and function. Therapeutic exercise to improve strength and flexibility. Neuromuscular re-education for posture and balance. Therapeutic activities to return to functional activities of daily living. Electronically signed by: Lynnette Deleon, PT, DPT Please sign and return to therapist. Thank you for your referral.
--- NOTE | 2022-01-19 16:44 | MHC.PT.DC ---
[facility] [place] Office [place] Office [place] Office [address] Kolby Lombardi [address] [phone] F: [phone] F: [phone] F: [phone] F: [phone] Physical Therapy Discharge Report Diagnosis: Unspecified sprain of left foot, initial encounter extensor tendonitis sprain of left foot Date of Surgery: n/a Date of Evaluation: 12/18/21 Date of Discharge: 01/19/22 Treatments to Date: 2 Cancellations to Date: 3 No Shows to Date: 2 Discharge Status: Visit Non-compliance Discharge Summary: Pt was evaluated on 12/18/21. She attended 1 treatment session on 12/31/21. She has had 3 cancellations and 2 no-show appointments. Pt is being D/C from PT per [facility] attendance policy and visit non-compliance. Pt current level of function unknown at this time. Electronically signed by: Lynnette Deleon, PT, DPT Please sign and return to therapist. Thank you for your referral.
== END 2022-01-19 16:46 | disposition home or self-care (01) ==
LOC: HO.PT 13:00
PROVIDERS: PCP Pediatrics; Visit Provider Physician Assistant
DX: S93.602D Unspecified sprain of left foot, subsequent encounter (principal)
CPT/HCPCS: 97110; 97161

== ENCOUNTER 2022-01-01 14:16 | Emergency (ER) | payer OTHER, SELFPAY ==
[2022-01-01 14:26] VITALS: BP 122/84; PULSE 80; RESP 16; O2SAT 99; BMI 51.5
--- NOTE | 2022-01-01 14:31 | ED.PSYCH ---
HPI - Psych General Chief Complaint: Fall Stated Complaint: R LEG PAIN S/P FALL,HIT HEAD,-LOC Time Seen by Provider: 01/01/22 14:30 Source: patient Mode of arrival: EMS Limitations: no limitations History of Present Illness HPI Narrative: Apparently patient tripped and fell 2 steps complaining of pain in the right knee no loss of consciousness no other significant injury patient ambulated Related Data Home Medications Medication Instructions Recorded Confirmed omeprazole 20 mg capsule,delayed 20 mg PO DAILY 11/29/20 11/15/21 release cetirizine 10 mg tablet 10 mg PO DAILY 12/24/20 11/15/21 fluticasone 250 mcg-salmeterol 50 1 puff INHALATION BID 08/02/21 11/15/21 mcg/dose blistr powdr for inhalation (Advair Diskus) topiramate 25 mg tablet 25 mg PO BID 08/02/21 11/15/21 duloxetine 60 mg capsule,delayed 1 cap PO QAM 08/03/21 11/15/21 release acetaminophen 500 mg tablet 500 mg PO Q6H PRN 09/01/21 11/15/21 albuterol sulfate 2.5 mg INHALATION Q4H PRN 09/01/21 11/15/21 hydroxyzine pamoate 50 mg capsule 50 mg PO BID PRN 09/01/21 11/15/21 trazodone 50 mg tablet 100 mg PO BEDTIME PRN 09/01/21 11/15/21 diphenhydramine HCl 50 mg capsule 2 cap PO BEDTIME 10/03/21 11/15/21 (Banophen) ferrous sulfate 325 mg (65 mg 1 tab PO QAM 10/03/21 11/15/21 iron) tablet,delayed release fluticasone propionate 50 2 spray INTRANASAL DAILY 10/03/21 11/15/21 mcg/actuation nasal spray,suspension lithium carbonate 300 mg tablet 300 mg PO BID 10/20/21 11/15/21 nicotine (polacrilex) 2 mg gum 2 mg BUCCAL Q2H PRN 10/24/21 11/16/21 (Nicorette) mirtazapine 15 mg tablet 15 mg PO BEDTIME 11/15/21 11/15/21 Previous Rx's Medication Instructions Recorded ammonium lactate 12 % topical cream 1 appl TOPICAL BID PRN 30 Days 09/22/21 #140 g benztropine 0.5 mg tablet 0.5 mg PO BID 30 Days #60 tab 09/22/21 haloperidol 5 mg tablet 5 mg PO TID 30 Days #90 tab 09/22/21 haloperidol decanoate 50 mg/mL 75 mg (1.5 mL) IM Q28D@1300 28 09/22/21 intramuscular solution Days #1.5 ml prazosin 5 mg capsule 20 mg PO BEDTIME 30 Days #120 cap 10/09/21 cephalexin 500 mg capsule 500 mg PO TID 5 Days #15 cap 11/17/21 benzonatate 100 mg capsule 100 mg PO TID PRN #12 cap 12/10/21 ondansetron HCl 4 mg tablet 4 mg PO Q6H PRN #14 tab 12/10/21 Allergies Allergy/AdvReac Type Severity Reaction Status Date / Time carbamazepine [From TEGRETOL] AdvReac Unknown NAUSEA & Verified 12/09/21 22:36 VOMITING Review of Systems Review of Systems: Yes all other systems are reviewed and are negative PMFSH Past Medical History Medical History Acute post-traumatic stress disorder Adjustment disorder Anxiety Asthma Borderline personality disorder Chronic post-traumatic stress disorder (PTSD) COPD (chronic obstructive pulmonary disease) Depression GERD (gastroesophageal reflux disease) Increased BMI Injury, self-inflicted Intentional self-harm PTSD (post-traumatic stress disorder) Recurrent major depression-severe Schizoaffective disorder Self-harming behavior Suicidal ideation Suicidal ideation Social History Social History Household Members: Other Household Members Other:: fci Housing: Other Housing Other:: fci Do you presently have visiting nurse or other home services: No Alcohol intake: never Patient Tobacco Use Status: Former Tobacco user Quit Date: 02-19-21 Tobacco use type: Cigarette Cigarette Packs Per Day: 1 Cigarettes Per Day: 20.0 Years Smoked: 17 e-Cigarette/Vaping Use: Never Used Second Hand Smoke Exposure: Yes Substance Use Type: Marijuana Advance Directives: No Advance Directives Information Provided: No service: No Sexual orientation: Don't Know Physical Exam Vital Signs: Vital Signs: Last Vital Signs Pulse 80 01/01/22 14:26 Resp 16 01/01/22 14:26 BP 122/84 01/01/22 14:26 Pulse Ox 99 01/01/22 14:26 BMI result Body Mass Index 51.5 Const: General: comfortable and no acute distress Extrem: Knee images: 1. Diffuse tenderness no joint effusion no deformity, good range of movement Patient ambulating steady gait MDM - Psych MDM Narrative Medical decision making narrative: Patient with minor right knee sprain ambulatory no deformity good range of movement bayron wrap was applied will discharge home Discharge Plan Discharge Clinical Impression: Right knee sprain Patient Disposition: Home, Self-Care Instructions: Knee Sprain (ED) Additional Instructions: Wear the Bayron wrap for support Tylenol/ibuprofen for pain Prescriptions: No Action omeprazole 20 mg capsule,delayed release(DR/EC) 20 mg PO DAILY 0RF cetirizine 10 mg Tablet 10 mg PO DAILY 0RF topiramate 25 mg tablet 25 mg PO BID 0RF fluticasone propion-salmeterol [Advair Diskus] 250-50 mcg/dose blister with device 1 puff inhalation BID 0RF duloxetine 60 mg capsule,delayed release(DR/EC) 1 cap PO QAM 0RF diphenhydramine HCl [Banophen] 50 mg capsule 2 cap PO BEDTIME 0RF ferrous sulfate 325 mg (65 mg iron) tablet,delayed release (DR/EC) 1 tab PO QAM 0RF fluticasone propionate 50 mcg/actuation spray,suspension 2 spray intranasal DAILY 0RF prazosin 5 mg Capsule 20 mg PO BEDTIME 30 Days Qty: 120 0RF Protocol: Hold for SBP< HOLD for SBP < : 90 nicotine (polacrilex) [Nicorette] 2 mg gum 2 mg buccal Q2H PRN (Reason: Nicotine Cravings) 0RF mirtazapine 15 mg tablet 15 mg PO BEDTIME 0RF cephalexin 500 mg capsule 500 mg PO TID 5 Days Qty: 15 0RF benzonatate 100 mg capsule 100 mg PO TID PRN (Reason: cough) Qty: 12 0RF ondansetron HCl 4 mg tablet 4 mg PO Q6H PRN (Reason: nausea and vomiting) Qty: 14 0RF trazodone 50 mg tablet 100 mg PO BEDTIME PRN (Reason: Insomnia) 0RF hydroxyzine pamoate 50 mg capsule 50 mg PO BID PRN (Reason: anxiety) 0RF albuterol sulfate 2.5 mg /3 mL (0.083 %) Solution For Nebulization 2.5 mg INHALATION Q4H PRN (Reason: Shortness Of Breath) 0RF acetaminophen 500 mg Tablet 500 mg PO Q6H PRN (Reason: Pain (Scale Score 1-3)) 0RF benztropine 0.5 mg Tablet 0.5 mg PO BID 30 Days Qty: 60 0RF haloperidol 5 mg Tablet 5 mg PO TID 30 Days Qty: 90 0RF haloperidol decanoate 50 mg/mL Solution 75 mg IM Q28D@1300 28 Days Qty: 1.5 0RF ammonium lactate 12 % Cream 1 appl topical BID PRN (Reason: Dry Skin) 30 Days Qty: 140 0RF Protocol: Apply to: Apply to: bilateral feet lithium carbonate 300 mg tablet 300 mg PO BID 0RF Interventions: ED Discharge Assessment Last Done: 01/01/22 15:06 Discharge Date/Time: 01/01/22 15:06
== END 2022-01-01 15:06 | disposition home or self-care (01) ==
PROVIDERS: Emergency Provider Internal Medicine; PCP Pediatrics
DX: S83.91XA Sprain of unspecified site of right knee, initial encounter (principal); M25.561 Pain in right knee; W10.9XXA Fall (on) (from) unspecified stairs and steps, initial encounter; Y93.9 Activity, unspecified; Y92.9 Unspecified place or not applicable; Y99.9 Unspecified external cause status; Z79.899 Other long term (current) drug therapy; F17.210 Nicotine dependence, cigarettes, uncomplicated; Z71.6 Tobacco abuse counseling
CPT/HCPCS: 99282

== ENCOUNTER 2022-02-26 09:27 | Emergency (ER) | payer OTHER, SELFPAY ==
[2022-02-26 09:33] VITALS: BP 124/68; PULSE 111; O2SAT 95
[2022-02-26 09:35] VITALS: BP 133/84; PULSE 106; RESP 18; TEMP 36.6; O2SAT 97; BMI 48.4
--- NOTE | 2022-02-26 09:43 | ED.PSYCH ---
HPI - Psych General Chief Complaint: Psychiatric Symptoms Stated Complaint: SI,WANTS TO CUT SELF PER EMS Time Seen by Provider: 02/26/22 09:35 Source: patient and old records reviewed Mode of arrival: EMS Limitations: no limitations History of Present Illness HPI Narrative: 36 yo female with hx of GERD, schizoaffective disorder for the past week has been struggling now wants to hurt herself and cut herself. Patient arrives requesting IM medications to calm her down. MD complaint: suicidal ideation and feels depressed Onset (ago): week(s) (1) Duration: getting worse History of same: Yes Relieving factors: none Exacerbating factors: other (stress, loss of sister) Context: significant life stressor Associated psychiatric symptoms: depression and suicidal ideation Associated symptoms: denies other symptoms Treatments prior to arrival: none If self harm: admits thoughts of self harm Related Data Home Medications Medication Instructions Recorded Confirmed omeprazole 20 mg capsule,delayed 20 mg PO DAILY 11/29/20 11/15/21 release cetirizine 10 mg tablet 10 mg PO DAILY 12/24/20 11/15/21 fluticasone 250 mcg-salmeterol 50 1 puff inhalation BID 08/02/21 11/15/21 mcg/dose blistr powdr for inhalation (Advair Diskus) topiramate 25 mg tablet 25 mg PO BID 08/02/21 11/15/21 duloxetine 60 mg capsule,delayed 1 cap PO QAM 08/03/21 11/15/21 release acetaminophen 500 mg tablet 500 mg PO Q6H PRN Pain (Scale 09/01/21 11/15/21 Score 1-3) albuterol sulfate 2.5 mg inhalation Q4H PRN 09/01/21 11/15/21 Shortness Of Breath hydroxyzine pamoate 50 mg capsule 50 mg PO BID PRN anxiety 09/01/21 11/15/21 trazodone 50 mg tablet 100 mg PO BEDTIME PRN Insomnia 09/01/21 11/15/21 diphenhydramine HCl 50 mg capsule 2 cap PO BEDTIME 10/03/21 11/15/21 (Banophen) ferrous sulfate 325 mg (65 mg 1 tab PO QAM 10/03/21 11/15/21 iron) tablet,delayed release fluticasone propionate 50 2 spray intranasal DAILY 10/03/21 11/15/21 mcg/actuation nasal spray,suspension lithium carbonate 300 mg tablet 300 mg PO BID 10/20/21 11/15/21 nicotine (polacrilex) 2 mg gum 2 mg buccal Q2H PRN Nicotine 10/24/21 11/16/21 (Nicorette) Cravings mirtazapine 15 mg tablet 15 mg PO BEDTIME 11/15/21 11/15/21 Previous Rx's Medication Instructions Recorded ammonium lactate 12 % topical cream 1 appl topical BID PRN Dry Skin 30 09/22/21 days #140 grams benztropine 0.5 mg tablet 0.5 mg PO BID 30 days #60 tabs 09/22/21 haloperidol 5 mg tablet 5 mg PO TID 30 days #90 tabs 09/22/21 haloperidol decanoate 50 mg/mL 75 mg (1.5 mL) IM Q28D@1300 28 09/22/21 intramuscular solution days #1.5 mL prazosin 5 mg capsule 20 mg PO BEDTIME 30 days #120 caps 10/09/21 cephalexin 500 mg capsule 500 mg PO TID 5 days #15 caps 11/17/21 benzonatate 100 mg capsule 100 mg PO TID PRN cough #12 caps 12/10/21 ondansetron HCl 4 mg tablet 4 mg PO Q6H PRN nausea and 12/10/21 vomiting #14 tabs Allergies Allergy/AdvReac Type Severity Reaction Status Date / Time carbamazepine [From TEGRETOL] AdvReac Unknown NAUSEA & Verified 02/26/22 11:34 VOMITING Review of Systems Review of Systems: Constitutional : No Fever, No Chills ENT/Mouth : No Ear Pain, No Nasal Congestion, No sore throat Eyes: No Eye Pain, No Swelling, No Redness Cardiovascular : No Chest Pain, No SOB Respiratory : No Cough, No Sputum, No Dyspnea Gastrointestinal : No Nausea, No Vomiting, No Diarrhea, No Hematochezia, No Melena Genitourinary : No Dysuria, No Urinary Frequency, No Hematuria Musculoskeletal : No Myalgias Skin : No Skin Lesions, No rash Neuro : No Weakness, No Numbness, No Paresthesias, No Dizziness, No Headache Psych : positive Anxiety, positive Depression, positive SI no HI Heme/Lymph: No Lymphadenopathy Endocrine : No Polyuria, No Polydipsia All other systems reviewed and are negative FOR[facility]LY [facility] Past Medical History Attestation statement: The following information was validated with the patient. Medical History Acute post-traumatic stress disorder Adjustment disorder Anxiety Asthma Borderline personality disorder Chronic post-traumatic stress disorder (PTSD) COPD (chronic obstructive pulmonary disease) Depression GERD (gastroesophageal reflux disease) Increased BMI Injury, self-inflicted Intentional self-harm PTSD (post-traumatic stress disorder) Recurrent major depression-severe Schizoaffective disorder Self-harming behavior Suicidal ideation Suicidal ideation Social History Social History Household Members: Other Household Members Other:: detention Housing: Other Housing Other:: detention Do you presently have visiting nurse or other home services: No Alcohol intake: never Patient Tobacco Use Status: Former Tobacco user Quit Date: 02-19-21 Tobacco use type: Cigarette Cigarette Packs Per Day: 1 Cigarettes Per Day: 20.0 Years Smoked: 17 e-Cigarette/Vaping Use: Never Used Second Hand Smoke Exposure: Yes Substance Use Type: Marijuana Advance Directives: No Advance Directives Information Provided: No service: No Sexual orientation: Don't Know Physical Exam Vital Signs: Vital Signs: Last Vital Signs Temp 97.8 F 02/26/22 09:35 Pulse 106 H 02/26/22 09:35 Resp 18 02/26/22 09:35 BP 133/84 02/26/22 09:35 Pulse Ox 97 02/26/22 09:35 O2 Del Method 02/26/22 09:35 BMI result Body Mass Index 48.4 Appearance: Alert. Oriented X3. No acute distress. Anxious Eyes: Pupils equal, round and reactive to light. ENT: Pharynx normal. Old scar on forehead Neck: Normal inspection. Neck supple. CVS: Normal heart rate and rhythm. Pulses normal. Respiratory: No respiratory distress. Breath sounds normal. Abdomen: Soft and nontender. Skin: Skin warm and dry. Normal skin color. Normal skin turgor. Extremities: No lower extremity edema. No calf ttp Neuro: Oriented X 3. No motor deficit. No sensory deficit. CN2-12 intact Psych: calm for now but rocking back and forth on stretcher, + SI Course Course Course Narrative: Physician observation started at 1155am Patient placed in physician observation because the patient needed more time for [facility] to assess the need for psych admission. At the time observation was started the patient's vitals were stable, patient is alert and oriented but slightly anxious, Neuro: nonfocal, CV RRR, Lungs clear Physician observation ended at 105pm. Patient seen and cleared by CARE team. Plan is to follow up with therapist. feels safe to return now, detention on board. NAD, lungs clear, CV RRR, Abd nontender, Neuro intact. Disposition is for home. MDM - Psych MDM Narrative Medical decision making narrative: 36 yo female with hx of GERD, schizoaffective disorder here with c/o SI - at this time she is requesting IM medications for treatment hx of same in past this is not a restraint but patient preference will obtain labs and refer to [facility]. Lab Data Result diagrams: 02/26/22 10:48 02/26/22 10:48 Labs: Lab Results 02/26/22 02/26/22 02/26/22 Range/Units 09:41 10:48 10:48 WBC 10.0 (4.8-10.8) X10*3/uL RBC 4.51 (4.20-5.50) X10*6/uL Hgb 12.6 (12.0-16.0) g/dl Hct 38.6 (37.0-47.0) % MCV 85.6 (80.0-98.0) fL MCH 27.9 (27.0-33.0) pg MCHC 32.6 (31.0-35.0) g/dl RDW 14.7 (11.0-16.0) % Plt Count 243 (160-400) X10*3/uL MPV 11.5 (9.4-12.3) fL Immature Gran % (Auto) 0.3 (0.0-0.4) % Neut % (Auto) 85.0 H (45-73) % Lymph % (Auto) 10.2 L (20-40) % [place] % (Auto) 4.4 (2-11) % Eos % (Auto) 0.0 (0-4) % Baso % (Auto) 0.1 (0-2) % Lymph # (Auto) 1.0 L (1.2-4.9) X10*3/uL [place] # (Auto) 0.4 (0.1-1.2) X10*3/uL Eos # (Auto) 0.0 (0.0-0.4) X10*3/uL Baso # (Auto) 0.0 (0.0-0.2) X10*3/uL Abs Immat Gran (auto) 0.03 (0.00-0.03) X10*3/uL Absolute Neuts (auto) 8.5 H (2.0-8.3) x10*3/uL Absolute Nucleated RBC 0.000 (0.0-0.012) X10*3/uL Nucleated RBC % (auto) 0.0 (0.0-0.2) /100WBC Sodium 137 (135-145) mmol/L Potassium 3.9 (3.3-5.1) mmol/L Chloride 109 H (96-108) mmol/L Carbon Dioxide 19 L (22-29) mmol/L Anion Gap 13 (12-20) BUN 8 L (9-16) mg/dL Creatinine 0.92 (0.5-1.4) mg/dL Estim Creat Clear Calc 93.6 Estimated GFR > 60 Random Glucose 119 H (60-115) mg/dL Calcium 9.2 (8.4-10.2) mg/dL Total Bilirubin 0.4 (0.0-1.0) mg/dL Direct Bilirubin 0.2 (0.0-0.5) mg/dL AST 12 (5-31) U/L ALT 13 (0-31) U/L Alkaline Phosphatase 75 (39-117) U/L Total Protein 7.1 D (6.5-8.0) g/dL Albumin 4.5 D (3.5-5.0) g/dL Urine Test (NEGATIVE) Urine Opiates Screen (Not Detect) Urine Fentanyl Screen (Not Detect) Ur Barbiturates Screen (Not Detect) Ur Phencyclidine Scrn (Not Detect) Ur Amphetamines Screen (Not Detect) U Benzodiazepines Scrn (Not Detect) Mooar (0.60-1.20) mmol/L Urine Cocaine Screen (Not Detect) U Marijuana (THC) Screen (Not Detect) COVID-19 (RAFAL) Negative (Negative) COVID-19 Clin Com See Note 02/26/22 02/26/22 02/26/22 Range/Units 10:48 12:33 12:33 WBC (4.8-10.8) X10*3/uL RBC (4.20-5.50) X10*6/uL Hgb (12.0-16.0) g/dl Hct (37.0-47.0) % MCV (80.0-98.0) fL MCH (27.0-33.0) pg MCHC (31.0-35.0) g/dl RDW (11.0-16.0) % Plt Count (160-400) X10*3/uL MPV (9.4-12.3) fL Immature Gran % (Auto) (0.0-0.4) % Neut % (Auto) (45-73) % Lymph % (Auto) (20-40) % [place] % (Auto) (2-11) % Eos % (Auto) (0-4) % Baso % (Auto) (0-2) % Lymph # (Auto) (1.2-4.9) X10*3/uL [place] # (Auto) (0.1-1.2) X10*3/uL Eos # (Auto) (0.0-0.4) X10*3/uL Baso # (Auto) (0.0-0.2) X10*3/uL Abs Immat Gran (auto) (0.00-0.03) X10*3/uL Absolute Neuts (auto) (2.0-8.3) x10*3/uL Absolute Nucleated RBC (0.0-0.012) X10*3/uL Nucleated RBC % (auto) (0.0-0.2) /100WBC Sodium (135-145) mmol/L Potassium (3.3-5.1) mmol/L Chloride (96-108) mmol/L Carbon Dioxide (22-29) mmol/L Anion Gap (12-20) BUN (9-16) mg/dL Creatinine (0.5-1.4) mg/dL Estim Creat Clear Calc Estimated GFR Random Glucose (60-115) mg/dL Calcium (8.4-10.2) mg/dL Total Bilirubin (0.0-1.0) mg/dL Direct Bilirubin (0.0-0.5) mg/dL AST (5-31) U/L ALT (0-31) U/L Alkaline Phosphatase (39-117) U/L Total Protein (6.5-8.0) g/dL Albumin (3.5-5.0) g/dL Urine Test NEGATIVE (NEGATIVE) Urine Opiates Screen Not Detected (Not Detect) Urine Fentanyl Screen POSITIVE H (Not Detect) Ur Barbiturates Screen Not Detected (Not Detect) Ur Phencyclidine Scrn Not Detected (Not Detect) Ur Amphetamines Screen Not Detected (Not Detect) U Benzodiazepines Scrn POSITIVE H (Not Detect) Mooar 0.31 L (0.60-1.20) mmol/L Urine Cocaine Screen Not Detected (Not Detect) U Marijuana (THC) Screen POSITIVE H (Not Detect) COVID-19 (RAFAL) (Negative) COVID-19 Clin Com Discharge Plan Discharge Clinical Impression: Suicidal ideation Patient Disposition: Home, Self-Care Instructions: Depression (ED) Additional Instructions: return to ED for any worsening symptoms or concerns Prescriptions: No Action omeprazole 20 mg capsule,delayed release(DR/EC) 20 mg PO DAILY cetirizine 10 mg Tablet 10 mg PO DAILY topiramate 25 mg tablet 25 mg PO BID fluticasone propion-salmeterol [Advair Diskus] 250-50 mcg/dose blister with device 1 puff inhalation BID duloxetine 60 mg capsule,delayed release(DR/EC) 1 cap PO QAM diphenhydramine HCl [Banophen] 50 mg capsule 2 cap PO BEDTIME ferrous sulfate 325 mg (65 mg iron) tablet,delayed release (DR/EC) 1 tab PO QAM fluticasone propionate 50 mcg/actuation spray,suspension 2 spray intranasal DAILY prazosin 5 mg Capsule 20 mg PO BEDTIME 30 Days Qty: 120 0RF Protocol: Hold for SBP< HOLD for SBP < : 90 nicotine (polacrilex) [Nicorette] 2 mg gum 2 mg buccal Q2H PRN (Reason: Nicotine Cravings) mirtazapine 15 mg tablet 15 mg PO BEDTIME cephalexin 500 mg capsule 500 mg PO TID 5 Days Qty: 15 0RF benzonatate 100 mg capsule 100 mg PO TID PRN (Reason: cough) Qty: 12 0RF ondansetron HCl 4 mg tablet 4 mg PO Q6H PRN (Reason: nausea and vomiting) Qty: 14 0RF trazodone 50 mg tablet 100 mg PO BEDTIME PRN (Reason: Insomnia) hydroxyzine pamoate 50 mg capsule 50 mg PO BID PRN (Reason: anxiety) albuterol sulfate 2.5 mg /3 mL (0.083 %) Solution For Nebulization 2.5 mg INHALATION Q4H PRN (Reason: Shortness Of Breath) acetaminophen 500 mg Tablet 500 mg PO Q6H PRN (Reason: Pain (Scale Score 1-3)) benztropine 0.5 mg Tablet 0.5 mg PO BID 30 Days Qty: 60 0RF haloperidol 5 mg Tablet 5 mg PO TID 30 Days Qty: 90 0RF haloperidol decanoate 50 mg/mL Solution 75 mg IM Q28D@1300 28 Days Qty: 1.5 0RF ammonium lactate 12 % Cream 1 appl topical BID PRN (Reason: Dry Skin) 30 Days Qty: 140 0RF Protocol: Apply to: Apply to: bilateral feet lithium carbonate 300 mg tablet 300 mg PO BID
[2022-02-26 10:11] LABS: COVID-19 Test Negative (Negative); IDNOW Serial# 9DB6401D
--- NOTE | 2022-02-26 10:13 | PC.NURSE ---
car mover to hospital attire completed when patient arrived to ED. Pt is calm/cooperative at this time. Attempting to obtain labs at this time. Medications ordered by and to be administered.
[2022-02-26] MEDS: Midazolam HCl/PF 2 MG/2 ML VIAL IM (10:31)
[2022-02-26] MEDS: Haloperidol Lactate 5 MG/ML VIAL IM (10:31)
--- NOTE | 2022-02-26 10:32 | PC.NURSE ---
Given IM Haldol & Versed to left deltoid. Pt accepted medication willingly to treat. No restraints necessary at this time. Pt remains cooperative at this time. Accidentally disposed of medication vials in waste bin before scanning medication. Documented this in OCT. Pt is a difficult stick. Marialuisa PCT & Kaiden PCT both attempted to obtain labs without success. This RN to also attempt to obtain labs.
[2022-02-26 10:52] LABS: MANUAL DIFF FLAG NO
[2022-02-26 10:53] LABS: Basophils Percent Auto 0.1 % (0-2); Hematocrit 38.6 % (37.0-47.0); Hemoglobin 12.6 g/dl (12.0-16.0); Imm Gran Abs Auto 0.03 X10*3/uL (0.00-0.03); Imm Gran Pct Auto 0.3 % (0.0-0.4); Lymphocytes Percent Auto 10.2 % (20-40); Mean Corpuscular HGB Conc 32.6 g/dl (31.0-35.0); Mean Corpuscular Hemoglobin 27.9 pg (27.0-33.0); Mean Corpuscular Volume 85.6 fL (80.0-98.0); Mean Platelet Volume 11.5 fL (9.4-12.3); Monocytes Absolute Auto 0.4 X10*3/uL (0.1-1.2); Monocytes Percent Auto 4.4 % (2-11); Neutrophils Absolute Auto 8.5 x10*3/uL (2.0-8.3); Platelet Count 243 X10*3/uL (160-400); Red Blood Count 4.51 X10*6/uL (4.20-5.50); Red Cell Distribution Width 14.7 % (11.0-16.0)
[2022-02-26 11:15] LABS: Lithium 0.31 mmol/L (0.60-1.20)
[2022-02-26 11:20] LABS: Alanine Aminotransferase 13 U/L (0-31); Albumin Level 4.5 g/dL (3.5-5.0); Alkaline Phosphatase 75 U/L (39-117); Anion Gap 13 (12-20); Aspartate Amino Transferase 12 U/L (5-31); Bilirubin Direct 0.2 mg/dL (0.0-0.5); Bilirubin Total 0.4 mg/dL (0.0-1.0); Blood Urea Nitrogen 8 mg/dL (9-16); Calcium 9.2 mg/dL (8.4-10.2); Carbon Dioxide 19 mmol/L (22-29); Chloride 109 mmol/L (96-108); Creatinine Clr Calc Pharmacy 93.6; Estimated Glomerular Filt Rate > 60; Glucose Random 119 mg/dL (60-115); Potassium 3.9 mmol/L (3.3-5.1); Sodium 137 mmol/L (135-145); Total Protein 7.1 g/dL (6.5-8.0)
--- NOTE | 2022-02-26 11:40 | PC.NURSE ---
patient walking around [facility] with staff. Remains calm/cooperative/pleasant at this time. Awaiting evaluation.
[2022-02-26 12:44] LABS: UPreg QC Valid YES; Urine Pregnancy NEGATIVE (NEGATIVE)
[2022-02-26 12:58] LABS: Amphetamine Screen Urine Not Detected (Not Detect); Barbiturates, Urine Not Detected (Not Detect); Benzodiazepines Screen Urine POSITIVE (Not Detect); Cannabinoid Screen Urine POSITIVE (Not Detect); Cocaine Screen Urine Not Detected (Not Detect); Fentanyl, urine POSITIVE (Not Detect); Opiate Screen Urine Not Detected (Not Detect); Phencyclidine Screen Urine Not Detected (Not Detect)
--- NOTE | 2022-02-26 14:45 | MHC.CARE ---
Pt presented to the ED due to endorsing command auditory hallucinations. Pt is well known to the ED and CARE Team. Pt states that she has been out of the hospital for 4 months and has been doing relatively well, however she states today had been a challenging day for her and states that she is struggling with the intrusive voices. Pt states at baseline she expediences auditory hallucinations and is able to ignore them. Pt self advocates to return home, she denies SI/HI and states that tomorrow she has ECT. She states she feels comfortable leaving and wants to return to her senior care so that she can relax, lay down and use her head phones. Pt states she will utilize her coping skills and return to ED if necessary. T/w called senior care director Louis. Louis shared that pt has been fighting the urge to cut and has been depressive/ doesn't want to be alone. He states that she did in fact give staff razors that she bought. Pt tells me that although she has had urges, she has not engaged in cutting. Louis is comfortable with pt returning back, she has an ECT apt tomorrow morning and will follow up with current providers. Case discussed with CARE offset plate preparation supervisor HORTENSIA Guevara and ED provider Dr. Gonzales.
== END 2022-02-26 13:42 | disposition home or self-care (01) ==
PROVIDERS: Emergency Provider Emergency Medicine; PCP Pediatrics
DX: F33.1 Major depressive disorder, recurrent, moderate (principal); R45.851 Suicidal ideations; F17.210 Nicotine dependence, cigarettes, uncomplicated; Z71.6 Tobacco abuse counseling; Z20.822 Contact with and (suspected) exposure to COVID-19; Z79.899 Other long term (current) drug therapy
CPT/HCPCS: 36415; 80048; 80076; 80178; 80307; 81025; 85025; 87635; 96372; 99284; 99285; J2250

== ENCOUNTER 2022-03-17 12:52 | Emergency (ER) | payer OTHER, SELFPAY ==
[2022-03-17 13:02] VITALS: BP 148/120; PULSE 130; RESP 18; TEMP 36.6; O2SAT 98; BMI 46.2
--- NOTE | 2022-03-17 14:46 | ED_ITS ---
HPI - Psych General Chief Complaint: ETOH/Substance Use Stated Complaint: Smoked laced marijuana Time Seen by Provider: 03/17/22 14:44 Source: patient Mode of arrival: ambulatory Limitations: no limitations History of Present Illness HPI Narrative: Patient comes to the emergency room complaining of anxiety. Earlier today patient smoked marijuana, states that it was laced with something. Patient states that she was scared about the sensation she had so she started banging her head against the floor. Patient denies SI or HI. At this time, patient states that she feels much better, states that she is not feeling anxious anymore, not SI or HI. Patient states that she is fine and declined any further intervention, declined CT scan. Related Data Home Medications Medication Instructions Recorded Confirmed omeprazole 20 mg capsule,delayed 20 mg PO DAILY 11/29/20 11/15/21 release cetirizine 10 mg tablet 10 mg PO DAILY 12/24/20 11/15/21 fluticasone 250 mcg-salmeterol 50 1 puff inhalation BID 08/02/21 11/15/21 mcg/dose blistr powdr for inhalation (Advair Diskus) topiramate 25 mg tablet 25 mg PO BID 08/02/21 11/15/21 duloxetine 60 mg capsule,delayed 1 cap PO QAM 08/03/21 11/15/21 release acetaminophen 500 mg tablet 500 mg PO Q6H PRN Pain (Scale 09/01/21 11/15/21 Score 1-3) albuterol sulfate 2.5 mg/3 mL 2.5 mg inhalation Q4H PRN 09/01/21 11/15/21 (0.083 %) solution for nebulization Shortness Of Breath hydroxyzine pamoate 50 mg capsule 50 mg PO BID PRN anxiety 09/01/21 11/15/21 trazodone 50 mg tablet 100 mg PO BEDTIME PRN Insomnia 09/01/21 11/15/21 diphenhydramine HCl 50 mg capsule 2 cap PO BEDTIME 10/03/21 11/15/21 (Banophen) ferrous sulfate 325 mg (65 mg 1 tab PO QAM 10/03/21 11/15/21 iron) tablet,delayed release fluticasone propionate 50 2 spray intranasal DAILY 10/03/21 11/15/21 mcg/actuation nasal spray,suspension lithium carbonate 300 mg tablet 300 mg PO BID 10/20/21 11/15/21 nicotine (polacrilex) 2 mg gum 2 mg buccal Q2H PRN Nicotine 10/24/21 11/16/21 (Nicorette) Cravings mirtazapine 15 mg tablet 15 mg PO BEDTIME 11/15/21 11/15/21 Previous Rx's Medication Instructions Recorded ammonium lactate 12 % topical cream 1 appl topical BID PRN Dry Skin 30 09/22/21 days #140 grams benztropine 0.5 mg tablet 0.5 mg PO BID 30 days #60 tabs 09/22/21 haloperidol 5 mg tablet 5 mg PO TID 30 days #90 tabs 09/22/21 haloperidol decanoate 50 mg/mL 75 mg (1.5 mL) IM Q28D@1300 28 09/22/21 intramuscular solution days #1.5 mL prazosin 5 mg capsule 20 mg PO BEDTIME 30 days #120 caps 10/09/21 cephalexin 500 mg capsule 500 mg PO TID 5 days #15 caps 11/17/21 benzonatate 100 mg capsule 100 mg PO TID PRN cough #12 caps 12/10/21 ondansetron HCl 4 mg tablet 4 mg PO Q6H PRN nausea and 12/10/21 vomiting #14 tabs Allergies Allergy/AdvReac Type Severity Reaction Status Date / Time carbamazepine [From TEGRETOL] AdvReac Unknown NAUSEA & Verified 03/17/22 13:02 VOMITING Review of Systems Review of Systems: Constitutional : No Weight loss, No Fever, No Chills, No Night Sweats, No Fatigue, No Malaise ENT/Mouth : No Hearing loss, No Ear Pain, No Nasal Congestion, No Sinus Pain, No Hoarseness, No sore throat, No Rhinorrhea, No Swallowing Difficulty Eyes: No Eye Pain, No Swelling, No Redness, No Foreign Body, No Discharge, No Vision Changes Cardiovascular : No Chest Pain, No SOB, No Dyspnea on Exertion, No Orthopnea, No Edema, No Palpitations Respiratory : No Cough, No Sputum, No Wheezing, No Smoke Exposure, No Dyspnea Gastrointestinal : No Nausea, No Vomiting, No Diarrhea, No Constipation, No abdominal Pain, No Hematochezia, No Melena Genitourinary : no irregular bleeding, No Dysuria, No Urinary Frequency, No Hematuria, No Urinary Incontinence, No Urgency, No Flank Pain, No Urinary Flow Changes, No Hesitancy Musculoskeletal : No joint pain, No Myalgias, No Joint Swelling Skin : No Skin Lesions, No rash, ecchymosis to the forehead Neuro : No Weakness, No Numbness, No Paresthesias, No Loss of Consciousness, No Dizziness, No Headache Psych : No Anxiety/Panic, No Depression, No SI/HI/AH/VH, No Social Issues, admits to smoking marijuana, possibly laced Heme/Lymph: No Bruising, No Bleeding,No Lymphadenopathy Endocrine : No Polyuria, No Polydipsia, No Temperature Intolerance [facility] Past Medical History Medical History Acute post-traumatic stress disorder Adjustment disorder Anxiety Asthma Borderline personality disorder Chronic post-traumatic stress disorder (PTSD) COPD (chronic obstructive pulmonary disease) Depression GERD (gastroesophageal reflux disease) Increased BMI Injury, self-inflicted Intentional self-harm PTSD (post-traumatic stress disorder) Recurrent major depression-severe Schizoaffective disorder Self-harming behavior Suicidal ideation Suicidal ideation Social History Social History Household Members: Other Household Members Other:: shelter Housing: Other Housing Other:: shelter Do you presently have visiting nurse or other home services: No Alcohol intake: never Patient Tobacco Use Status: Former Tobacco user Quit Date: 02-19-21 Tobacco use type: Cigarette Cigarette Packs Per Day: 1 Cigarettes Per Day: 20.0 Years Smoked: 17 e-Cigarette/Vaping Use: Never Used Second Hand Smoke Exposure: Yes Substance Use Type: Marijuana Advance Directives: No Advance Directives Information Provided: No service: No Sexual orientation: Don't Know Physical Exam Vital Signs: Vital Signs: Last Vital Signs Temp 97.9 F 03/17/22 13:02 Pulse 130 H 03/17/22 13:02 Resp 18 03/17/22 13:02 BP 148/120 H 03/17/22 13:02 Pulse Ox 98 03/17/22 13:02 O2 Del Method 03/17/22 13:02 BMI result Body Mass Index 46.2 Const: Other: Appearance: Alert. Oriented X3. No acute distress. Eyes: Pupils equal, round and reactive to light. ENT: Pharynx normal. Neck: Normal inspection. Neck supple. No lymph nodes noted. No crepitus CVS: Normal heart rate and rhythm. Pulses normal. Normal S1 and S2 Respiratory: No respiratory distress. Breath sounds normal. No Wheezing. No rales Abdomen: Soft and nontender. No rigidity. No distention. Skin: Skin warm and dry. Normal skin color. Normal skin turgor. Small ecchymosis to the forehead, no bleeding Extremities: No lower extremity edema. No Lacerations. No Rash Neuro: Oriented X 3. No motor deficit. No sensory deficit. Moving all extremities. No slurred speech. CN 2 through 12 grossly intact Psych: calm, cooperative, normal affect Course Course Course Narrative: Patient is alert and oriented x3,, cooperative and coherent. Patient neurologically intact. Patient declined head CT, patient states that she feels much better, requesting to be discharged Discharge Plan Discharge Clinical Impression: Marijuana intoxication Patient Disposition: Home, Self-Care Instructions: Cannabis Abuse (ED) Additional Instructions: Please follow-up with your primary care physician tomorrow. If you have any worsening or new symptoms, please return to the emergency room or call 911 Prescriptions: No Action omeprazole 20 mg capsule,delayed release(DR/EC) 20 mg PO DAILY cetirizine 10 mg Tablet 10 mg PO DAILY topiramate 25 mg tablet 25 mg PO BID fluticasone propion-salmeterol [Advair Diskus] 250-50 mcg/dose blister with device 1 puff inhalation BID duloxetine 60 mg capsule,delayed release(DR/EC) 1 cap PO QAM diphenhydramine HCl [Banophen] 50 mg capsule 2 cap PO BEDTIME ferrous sulfate 325 mg (65 mg iron) tablet,delayed release (DR/EC) 1 tab PO QAM fluticasone propionate 50 mcg/actuation spray,suspension 2 spray intranasal DAILY prazosin 5 mg Capsule 20 mg PO BEDTIME 30 Days Qty: 120 0RF Protocol: Hold for SBP< HOLD for SBP < : 90 nicotine (polacrilex) [Nicorette] 2 mg gum 2 mg buccal Q2H PRN (Reason: Nicotine Cravings) mirtazapine 15 mg tablet 15 mg PO BEDTIME cephalexin 500 mg capsule 500 mg PO TID 5 Days Qty: 15 0RF benzonatate 100 mg capsule 100 mg PO TID PRN (Reason: cough) Qty: 12 0RF ondansetron HCl 4 mg tablet 4 mg PO Q6H PRN (Reason: nausea and vomiting) Qty: 14 0RF trazodone 50 mg tablet 100 mg PO BEDTIME PRN (Reason: Insomnia) hydroxyzine pamoate 50 mg capsule 50 mg PO BID PRN (Reason: anxiety) albuterol sulfate 2.5 mg /3 mL (0.083 %) Solution For Nebulization 2.5 mg INHALATION Q4H PRN (Reason: Shortness Of Breath) acetaminophen 500 mg Tablet 500 mg PO Q6H PRN (Reason: Pain (Scale Score 1-3)) benztropine 0.5 mg Tablet 0.5 mg PO BID 30 Days Qty: 60 0RF haloperidol 5 mg Tablet 5 mg PO TID 30 Days Qty: 90 0RF haloperidol decanoate 50 mg/mL Solution 75 mg IM Q28D@1300 28 Days Qty: 1.5 0RF ammonium lactate 12 % Cream 1 appl topical BID PRN (Reason: Dry Skin) 30 Days Qty: 140 0RF Protocol: Apply to: Apply to: bilateral feet lithium carbonate 300 mg tablet 300 mg PO BID
== END 2022-03-17 14:52 | disposition home or self-care (01) ==
PROVIDERS: Emergency Provider Emergency Medicine
DX: F12.920 Cannabis use, unspecified with intoxication, uncomplicated (principal); F41.9 Anxiety disorder, unspecified; F25.0 Schizoaffective disorder, bipolar type; Z87.891 Personal history of nicotine dependence; Z79.899 Other long term (current) drug therapy
CPT/HCPCS: 99282

== ENCOUNTER 2022-04-28 23:05 | Emergency (ER) | payer OTHER, SELFPAY ==
--- NOTE | 2022-04-28 23:16 | ED.PSYCH ---
HPI - Psych General Chief Complaint: Psychiatric Symptoms Stated Complaint: Drug Use Time Seen by Provider: 04/28/22 23:15 Source: patient and EMS Mode of arrival: EMS Limitations: no limitations History of Present Illness HPI Narrative: 37-year-old female well known to our facility past medical history significant for schizoaffective disorder depressive type, borderline personality disorder,? PTSD, self-inflicted injuries presenting to the emergency department via ambulance for?vague complaints of suicidal ideation, thinking her marijuana got laced and with complaints about her prison. Patient tells me she had an awful day and is feeling anxious, suicidal with plan to cut. She tells me that the prison she is currently living at is very ?ratchet ?she tells me that she wants to leave that prison never go back. Denies visual, auditory and tactile hallucinations at this time, she tells me that from time to time she will hear things. Patient admits marijuana use which she thought was laced. She denies other drugs, alcohol. Patient is a current daily smoker. Denies medical complaints. MD complaint: suicidal ideation and feels depressed Related Data Home Medications Medication Instructions Recorded Confirmed omeprazole 20 mg capsule,delayed 20 mg PO DAILY 11/29/20 04/29/22 release fluticasone 250 mcg-salmeterol 50 2 puff inhalation BID 08/02/21 04/29/22 mcg/dose blistr powdr for inhalation (Advair Diskus) duloxetine 60 mg capsule,delayed 60 mg PO QAM 08/03/21 04/29/22 release acetaminophen 500 mg tablet 500 mg PO Q6H PRN Pain (Scale 09/01/21 04/29/22 Score 1-3) albuterol sulfate 2.5 mg/3 mL 2.5 mg inhalation Q4H PRN 09/01/21 04/29/22 (0.083 %) solution for nebulization Shortness Of Breath fluticasone propionate 50 2 spray intranasal DAILY 10/03/21 04/29/22 mcg/actuation nasal spray,suspension nicotine (polacrilex) 2 mg gum 2 mg buccal Q2H PRN Nicotine 10/24/21 04/29/22 (Nicorette) Cravings benztropine 0.5 mg tablet 1 tab PO BID 04/29/22 04/29/22 cetirizine 10 mg tablet 1 tab PO DAILY 04/29/22 04/29/22 diphenhydramine HCl 50 mg capsule 2 cap PO BEDTIME 04/29/22 04/29/22 (Banophen) ferrous sulfate 325 mg (65 mg 1 tab PO DAILY 04/29/22 04/29/22 iron) tablet,delayed release haloperidol 5 mg tablet 1 tab PO TID 04/29/22 04/29/22 hydroxyzine pamoate 50 mg capsule 1 cap PO BID PRN anxiety 04/29/22 04/29/22 lithium carbonate 300 mg tablet 1 tab PO DAILY 04/29/22 04/29/22 lorazepam 1 mg tablet 1 tab PO TID PRN anxiety 04/29/22 04/29/22 prazosin 1 mg capsule 1 cap PO BEDTIME 04/29/22 04/29/22 prazosin 5 mg capsule 3 cap PO BEDTIME 04/29/22 04/29/22 topiramate 25 mg tablet 1 tab PO BID 04/29/22 04/29/22 trazodone 50 mg tablet 2 tab PO BEDTIME PRN Insomnia 04/29/22 04/29/22 Previous Rx's Medication Instructions Recorded haloperidol decanoate 50 mg/mL 75 mg (1.5 mL) IM Q28D@1300 28 09/22/21 intramuscular solution days #1.5 mL benzonatate 100 mg capsule 100 mg PO TID PRN cough #12 caps 12/10/21 ondansetron HCl 4 mg tablet 4 mg PO Q6H PRN nausea and 12/10/21 vomiting #14 tabs Allergies Allergy/AdvReac Type Severity Reaction Status Date / Time carbamazepine [From TEGRETOL] AdvReac Unknown NAUSEA & Verified 03/17/22 13:02 VOMITING Review of Systems Review of Systems: Constitutional : No Weight loss, No Fever, No Chills, No Fatigue, No Malaise ENT/Mouth : No sore throat, No Rhinorrhea Eyes: No Eye Pain, No Swelling, No Redness Cardiovascular : No Chest Pain, No SOB, No Dyspnea on Exertion, No Orthopnea, No Edema, No Palpitations Respiratory : No Cough, No Sputum, No Wheezing Gastrointestinal : No Nausea, No Vomiting, No Diarrhea, No Constipation, No abdominal Pain, No Hematochezia, No Melena Genitourinary : No Dysuria, No Urinary Frequency, No Hematuria, Musculoskeletal : No joint pain, No Myalgias, No Joint Swelling Skin : No Skin Lesions, No rash Neuro : No Weakness, No Numbness, No Dizziness, No Headache Psych : + Anxiety/Panic, No Depression, + SI, No HI All other systems reviewed and are negative Yes all other systems are reviewed and are negative [facility] Past Medical History Attestation statement: The following information was validated with the patient. Source: old records reviewed and nursing notes reviewed Medical History Acute post-traumatic stress disorder Adjustment disorder Anxiety Asthma Borderline personality disorder Chronic post-traumatic stress disorder (PTSD) COPD (chronic obstructive pulmonary disease) Depression GERD (gastroesophageal reflux disease) Increased BMI Injury, self-inflicted Intentional self-harm PTSD (post-traumatic stress disorder) Recurrent major depression-severe Schizoaffective disorder Self-harming behavior Suicidal ideation Suicidal ideation Social History Social History Household Members: Other Household Members Other:: prison Housing: Other Housing Other:: prison Do you presently have visiting nurse or other home services: No Alcohol intake: never Patient Tobacco Use Status: Former Tobacco user Quit Date: 02-19-21 Tobacco use type: Cigarette Cigarette Packs Per Day: 1 Cigarettes Per Day: 20.0 Years Smoked: 17 e-Cigarette/Vaping Use: Never Used Second Hand Smoke Exposure: Yes Substance Use Type: Marijuana Advance Directives: No Advance Directives Information Provided: No service: No Sexual orientation: Don't Know Physical Exam Vital Signs: Vital Signs: Last Vital Signs Temp 97.7 F 04/29/22 01:07 Pulse 106 H 04/29/22 01:07 Resp 18 04/29/22 01:07 BP 112/76 04/29/22 01:07 Pulse Ox 98 04/29/22 01:07 O2 Del Method 04/29/22 01:07 BMI result Body Mass Index 38.3 vss Appearance: Alert.? Oriented X3.? No acute distress.? Head: Normocephalic, atraumatic, no step-offs or deformities Eyes: Pupils equal, round and reactive to light.? ENT: Pharynx normal.? Neck: Normal inspection.? Neck supple.? CVS: Normal heart rate and rhythm.? Pulses normal.? Respiratory: No respiratory distress.? Breath sounds normal.? Abdomen: Soft and nontender.? Skin: Skin warm and dry.? Normal skin color.? Normal skin turgor.? Extremities: No lower extremity edema.? No calf ttp. 5/5 strength to bilateral upper and lower extremities. Old self-inflicted wounds to bilateral upper extremities. Neuro: Oriented X 3.? No motor deficit.? No sensory deficit. CN 2-12 intact Course Reevaluation(s) Reevaluation #1: Patient's CBC within normal limits. Chemistry with no acute electrolyte abnormalities requiring intervention. Ethanol negative. Urine and urine toxicology pending. Time: 00:42 Reevaluation #2: At this time patient will be placed into physician observation to allow more time to be evaluated by the behavioral health team. At time observation was started patient common cooperative no acute distress. Will continue to monitor. Time: 00:43 Reevaluation #3: Patient much more calm, blood pressure normal limits, improvement in pulse. UA negative. Urine toxicology positive for fentanyl and marijuana. Patient's lithium level is low, patient will be started on home meds. Patient was seen by Shaylee in the care team who tells me care team will re-evaluate patient in the morning. Time: 01:13 MDM - Psych MDM Narrative Medical decision making narrative: [id number] 37-year-old female presents with anxiety, complaints about her prison and suicidal ideation with plan to cut. X1 day. Physical examination with no acute finding patient's vitals significant for hypertension and tachycardia likely secondary to agitation, anxiety. Will repeat them and patient is much more calm. Plan at this time is medical clearance and evaluation by the behavioral health team. Medical Records Attestation: I reviewed the patient's medical records. Lab Data Attestation: I reviewed the patient's lab results. Result diagrams: 04/28/22 23:55 04/28/22 23:55 Labs: Lab Results 04/28/22 04/28/22 04/28/22 Range/Units 23:55 23:55 23:55 WBC 9.0 (4.8-10.8) X10*3/uL RBC 4.61 (4.20-5.50) X10*6/uL Hgb 13.2 (12.0-16.0) g/dl Hct 41.3 (37.0-47.0) % MCV 89.6 (80.0-98.0) fL MCH 28.6 (27.0-33.0) pg MCHC 32.0 (31.0-35.0) g/dl RDW 15.1 (11.0-16.0) % Plt Count 224 (160-400) X10*3/uL MPV 11.7 (9.4-12.3) fL Immature Gran % (Auto) 0.2 (0.0-0.4) % Neut % (Auto) 69.7 (45-73) % Lymph % (Auto) 23.8 (20-40) % [place] % (Auto) 6.0 (2-11) % Eos % (Auto) 0.1 (0-4) % Baso % (Auto) 0.2 (0-2) % Lymph # (Auto) 2.1 (1.2-4.9) X10*3/uL [place] # (Auto) 0.5 (0.1-1.2) X10*3/uL Eos # (Auto) 0.0 (0.0-0.4) X10*3/uL Baso # (Auto) 0.0 (0.0-0.2) X10*3/uL Abs Immat Gran (auto) 0.02 (0.00-0.03) X10*3/uL Absolute Neuts (auto) 6.3 (2.0-8.3) x10*3/uL Absolute Nucleated RBC 0.000 (0.0-0.012) X10*3/uL Nucleated RBC % (auto) 0.0 (0.0-0.2) /100WBC Sodium 139 (135-145) mmol/L Potassium 3.9 (3.3-5.1) mmol/L Chloride 108 (96-108) mmol/L Carbon Dioxide 20 L (22-29) mmol/L Anion Gap 15 (12-20) BUN 9 (9-16) mg/dL Creatinine 0.81 (0.5-1.4) mg/dL Estim Creat Clear Calc 91.5 Estimated GFR > 60 Random Glucose 132 H (60-115) mg/dL Calcium 9.7 (8.4-10.2) mg/dL Magnesium 1.9 (1.6-2.6) mg/dL Total Bilirubin 0.3 (0.0-1.0) mg/dL AST 16 (5-31) U/L ALT 15 (0-31) U/L Alkaline Phosphatase 73 (39-117) U/L Total Protein 7.2 (6.5-8.0) g/dL Albumin 4.5 (3.5-5.0) g/dL Urine Color Urine Appearance Urine pH (5.0-9.0) Ur Specific [place] (1.005-1.025) Urine Protein (Neg-Trace) mg/dL Urine Glucose (UA) (Negative) mg/dL Urine Ketones (Negative) mg/dL Urine Blood (Negative) Urine Nitrite (Negative) Ur Leukocyte Esterase (Negative) [place] (0.60-1.20) mmol/L Ethyl Alcohol < 10 mg/dL COVID-19 (RAFAL) Negative (Negative) COVID-19 Clin Com See Note 04/28/22 04/29/22 Range/Units 23:55 00:40 WBC (4.8-10.8) X10*3/uL RBC (4.20-5.50) X10*6/uL Hgb (12.0-16.0) g/dl Hct (37.0-47.0) % MCV (80.0-98.0) fL MCH (27.0-33.0) pg MCHC (31.0-35.0) g/dl RDW (11.0-16.0) % Plt Count (160-400) X10*3/uL MPV (9.4-12.3) fL Immature Gran % (Auto) (0.0-0.4) % Neut % (Auto) (45-73) % Lymph % (Auto) (20-40) % [place] % (Auto) (2-11) % Eos % (Auto) (0-4) % Baso % (Auto) (0-2) % Lymph # (Auto) (1.2-4.9) X10*3/uL [place] # (Auto) (0.1-1.2) X10*3/uL Eos # (Auto) (0.0-0.4) X10*3/uL Baso # (Auto) (0.0-0.2) X10*3/uL Abs Immat Gran (auto) (0.00-0.03) X10*3/uL Absolute Neuts (auto) (2.0-8.3) x10*3/uL Absolute Nucleated RBC (0.0-0.012) X10*3/uL Nucleated RBC % (auto) (0.0-0.2) /100WBC Sodium (135-145) mmol/L Potassium (3.3-5.1) mmol/L Chloride (96-108) mmol/L Carbon Dioxide (22-29) mmol/L Anion Gap (12-20) BUN (9-16) mg/dL Creatinine (0.5-1.4) mg/dL Estim Creat Clear Calc Estimated GFR Random Glucose (60-115) mg/dL Calcium (8.4-10.2) mg/dL Magnesium (1.6-2.6) mg/dL Total Bilirubin (0.0-1.0) mg/dL AST (5-31) U/L ALT (0-31) U/L Alkaline Phosphatase (39-117) U/L Total Protein (6.5-8.0) g/dL Albumin (3.5-5.0) g/dL Urine Color Yellow Urine Appearance Clear Urine pH 6.5 (5.0-9.0) Ur Specific [place] 1.015 (1.005-1.025) Urine Protein Negative (Neg-Trace) mg/dL Urine Glucose (UA) Negative (Negative) mg/dL Urine Ketones Trace (Negative) mg/dL Urine Blood Negative (Negative) Urine Nitrite Negative (Negative) Ur Leukocyte Esterase Negative (Negative) [place] 0.26 L (0.60-1.20) mmol/L Ethyl Alcohol mg/dL COVID-19 (RAFAL) (Negative) COVID-19 Clin Com Critical Care Time Critical Care Time Critical Care Time: No Discharge Plan Discharge Clinical Impression: Anxiety, Suicidal ideations Patient Disposition: Still a Patient Prescriptions: No Action omeprazole 20 mg capsule,delayed release(DR/EC) 20 mg PO DAILY fluticasone propion-salmeterol [Advair Diskus] 250-50 mcg/dose blister with device 2 puff inhalation BID duloxetine 60 mg capsule,delayed release(DR/EC) 60 mg PO QAM fluticasone propionate 50 mcg/actuation spray,suspension 2 spray intranasal DAILY nicotine (polacrilex) [Nicorette] 2 mg gum 2 mg buccal Q2H PRN (Reason: Nicotine Cravings) benzonatate 100 mg capsule 100 mg PO TID PRN (Reason: cough) Qty: 12 0RF ondansetron HCl 4 mg tablet 4 mg PO Q6H PRN (Reason: nausea and vomiting) Qty: 14 0RF lithium carbonate 300 mg tablet 1 tab PO DAILY benztropine 0.5 mg tablet 1 tab PO BID haloperidol 5 mg tablet 1 tab PO TID diphenhydramine HCl [Banophen] 50 mg capsule 2 cap PO BEDTIME trazodone 50 mg tablet 2 tab PO BEDTIME PRN (Reason: Insomnia) cetirizine 10 mg tablet 1 tab PO DAILY prazosin 1 mg capsule 1 cap PO BEDTIME hydroxyzine pamoate 50 mg capsule 1 cap PO BID PRN (Reason: anxiety) topiramate 25 mg tablet 1 tab PO BID prazosin 5 mg capsule 3 cap PO BEDTIME lorazepam 1 mg tablet 1 tab PO TID PRN (Reason: anxiety) ferrous sulfate 325 mg (65 mg iron) tablet,delayed release (DR/EC) 1 tab PO DAILY albuterol sulfate 2.5 mg /3 mL (0.083 %) Solution For Nebulization 2.5 mg INHALATION Q4H PRN (Reason: Shortness Of Breath) acetaminophen 500 mg Tablet 500 mg PO Q6H PRN (Reason: Pain (Scale Score 1-3)) haloperidol decanoate 50 mg/mL Solution 75 mg IM Q28D@1300 28 Days Qty: 1.5 0RF
[2022-04-28 23:20] VITALS: BMI 38.3
--- NOTE | 2022-04-28 23:33 | MHC.CARE ---
CARE team met with pt shortly after arriving by ambulance from her residential program. Pt is well known to the CARE team and this handbook writer. She engaged easily and reported that she had smoked marijuana with another resident in the home and that it was laced with something else. Pt also shared that she has been experiencing urges to cut herself, which she has not done thus far. She denied SI, HI, and command AH. She endorsed hearing voices at baseline. She shared that she has been feeling uncomfortable at her residential program since a new staff person started there, and she reported that a new resident has also been difficult for her to endure. She reported that the newer staff person had some of their family members come to the senior care earlier today to work on the person's car. She expressed feeling that was inappropriate and a HIPAA violation, and that she doesn't want to return there. Pt asked why she isn't able to do whatever she wants and has to stay in a program. This handbook writer validated pt's perspective and encouraged her to utilize her [facility] worker and outpatient treatment team to discuss what her options are before she elects to make any impulsive decisions. Pt is agreeable to remaining in the ED overnight and CARE team will follow up with her residential program in the morning.
[2022-04-28 23:46] VITALS: BP 119/101; PULSE 130; RESP 20; TEMP 36.9; O2SAT 97
[2022-04-28 23:54] VITALS: BP 119/101; PULSE 130; RESP 18; TEMP 36.9; O2SAT 97
[2022-04-28] MEDS: LORazepam 1 MG TABLET PO (23:59)
[2022-04-29 00:05] LABS: Basophils Percent Auto 0.2 % (0-2); Eosinophils Percent Auto 0.1 % (0-4); Hematocrit 41.3 % (37.0-47.0); Hemoglobin 13.2 g/dl (12.0-16.0); Imm Gran Abs Auto 0.02 X10*3/uL (0.00-0.03); Imm Gran Pct Auto 0.2 % (0.0-0.4); Lymphocytes Absolute Auto 2.1 X10*3/uL (1.2-4.9); Lymphocytes Percent Auto 23.8 % (20-40); MANUAL DIFF FLAG NO; Mean Corpuscular Hemoglobin 28.6 pg (27.0-33.0); Mean Corpuscular Volume 89.6 fL (80.0-98.0); Mean Platelet Volume 11.7 fL (9.4-12.3); Monocytes Absolute Auto 0.5 X10*3/uL (0.1-1.2); Neutrophils Absolute Auto 6.3 x10*3/uL (2.0-8.3); Neutrophils Percent Auto 69.7 % (45-73); Platelet Count 224 X10*3/uL (160-400); Red Blood Count 4.61 X10*6/uL (4.20-5.50); Red Cell Distribution Width 15.1 % (11.0-16.0)
[2022-04-29 00:17] LABS: COVID-19 Test Negative (Negative)
[2022-04-29 00:26] LABS: Alanine Aminotransferase 15 U/L (0-31); Albumin Level 4.5 g/dL (3.5-5.0); Alkaline Phosphatase 73 U/L (39-117); Anion Gap 15 (12-20); Aspartate Amino Transferase 16 U/L (5-31); Bilirubin Total 0.3 mg/dL (0.0-1.0); Blood Urea Nitrogen 9 mg/dL (9-16); Calcium 9.7 mg/dL (8.4-10.2); Carbon Dioxide 20 mmol/L (22-29); Chloride 108 mmol/L (96-108); Creatinine Clr Calc Pharmacy 91.5; Estimated Glomerular Filt Rate > 60; Ethanol < 10 mg/dL; Glucose Random 132 mg/dL (60-115); Magnesium 1.9 mg/dL (1.6-2.6); Potassium 3.9 mmol/L (3.3-5.1); Sodium 139 mmol/L (135-145); Total Protein 7.2 g/dL (6.5-8.0)
[2022-04-29 00:47] LABS: Appearance Urine Clear; Color Urine Yellow; Glucose Urine UA Negative (Negative); Leukocyte Esterase Urine Negative (Negative); Nitrite Urine Negative (Negative); PH 6.5 (5.0-9.0); Specific Gravity - Urine 1.015 (1.005-1.025); Urine Blood Negative (Negative); Urine Ketones Trace mg/dL (Negative); Urine Protein Negative (Neg-Trace)
[2022-04-29] MEDS: traZODone HCL 100 MG TABLET PO (00:51)
[2022-04-29] MEDS: HaloperidoL 5 MG TABLET PO ×2 (00:51→10:17)
[2022-04-29 01:04] LABS: Lithium 0.26 mmol/L (0.60-1.20)
[2022-04-29 01:07] VITALS: BP 112/76; PULSE 106; RESP 18; TEMP 36.5; O2SAT 98
[2022-04-29 01:12] LABS: Amphetamine Screen Urine Not Detected (Not Detect); Barbiturates, Urine Not Detected (Not Detect); Benzodiazepines Screen Urine Not Detected (Not Detect); Cannabinoid Screen Urine POSITIVE (Not Detect); Cocaine Screen Urine Not Detected (Not Detect); Fentanyl, urine POSITIVE (Not Detect); Opiate Screen Urine Not Detected (Not Detect); Phencyclidine Screen Urine Not Detected (Not Detect)
--- NOTE | 2022-04-29 06:37 | PC.NURSE ---
Patient slept through the night, no distress observed/reported, medication compliant, behavior appropriate and non concerning, patient is on one to one per facilty protocol, VSS, patient will be assessed by care team in the morning, will continue to monitor.
--- NOTE | 2022-04-29 07:04 | PC.NURSE ---
patient appears to remain asleep at present maintained on 1:1 status at present maintaining safe behavior patient appears in no distress
--- NOTE | 2022-04-29 08:39 | PHA.MEDREC ---
Pharmacy Consult ? Medication Reconciliation Pharmacy has completed the medication reconciliation.
[2022-04-29] MEDS: Benztropine Mesylate 0.5 MG TABLET PO (10:16)
[2022-04-29] MEDS: Ferrous Sulfate 324 MG TABLET.DR PO (10:16)
[2022-04-29] MEDS: Lithium Carbonate 300 MG CAPSULE PO (10:16)
[2022-04-29] MEDS: Loratadine 10 MG TABLET PO (10:17)
[2022-04-29] MEDS: Omeprazole 20 MG CAPSULE.DR PO (10:17)
[2022-04-29] MEDS: Topiramate 25 MG TABLET PO (10:17)
--- NOTE | 2022-04-29 11:15 | MHC.CARE ---
Pt is a 37 y/o Single, [place]odian speaking, female who is previously known to the CARE Team via prior assessments and in patient stays.? Yesterday, pt presented to the ED via ambulance with a complaint of?vague SI, thoughts that her marijuana was laced, and complaints about her long term.? Patient stated that she had seen her nephew yesterday and that the meeting with him brought to the surface thoughts of her sister.? Pt reports smoking marijuana with a friend that was purchased from the street, and shortly after, began to feel poorly.? Pt stated that she felt ?Out of my mind?.? Pt did test positive for Fentanyl, pt denies any opiate or Fentanyl use.? Today, she denies SI, HI, , and self-harm urges.? She reports that she hears voices at baseline but they have grown manageable, which she attributes to her ECT treatments. She denies any issues with the , stating she ?Loves the staff and the environment?.? She reports that she believes her reaction to whatever the marijuana was laced with caused her to feel that way. Pt has been cleared for risk and will be discharged back to the .? This disposition was discussed with and agreed upon by CARE Logistician Lynn BAZAN, ED provider Janet, and pt?s nurse RN Darien. Pt?s was contacted and will be collecting pt.? CARE Team spoke with Neli.
== END 2022-04-29 11:17 | disposition home or self-care (01) ==
PROVIDERS: Physician Assistant; Emergency Provider Student in an Organized Health Care Education/Training Program
DX: F41.9 Anxiety disorder, unspecified (principal); R45.851 Suicidal ideations; F25.1 Schizoaffective disorder, depressive type; F60.3 Borderline personality disorder; F43.10 Post-traumatic stress disorder, unspecified; I10 Essential (primary) hypertension; R00.0 Tachycardia, unspecified; F12.90 Cannabis use, unspecified, uncomplicated; Z20.822 Contact with and (suspected) exposure to COVID-19; Z79.899 Other long term (current) drug therapy; Z91.52 Personal history of nonsuicidal self-harm; Z87.891 Personal history of nicotine dependence
CPT/HCPCS: 36415; 80053; 80178; 80307; 81003; 82077; 83735; 85025; 87635; 99284; 99285

== ENCOUNTER 2022-05-01 17:29 | Emergency (ER) | payer OTHER, SELFPAY ==
--- NOTE | 2022-05-01 17:36 | ED_ITS ---
HPI - Psych General Chief Complaint: Psychiatric Symptoms Stated Complaint: hearing voices-from senior living Time Seen by Provider: 05/01/22 17:36 Source: patient and EMS Mode of arrival: EMS Limitations: no limitations History of Present Illness HPI Narrative: 37-year-old female well known to our facility past medical history significant for schizoaffective disorder depressive type, borderline personality disorder,? PTSD, self-inflicted injuries presenting to the emergency department via ambulance for?vague complaints of suicidal ideation. The patient tells me that she was feeling depressed and stressed at her senior living today about her current court case and life stressors, requested to speak to crisis and was denied, so she proceeded to cut her upper extremities and began feeling suicidal. She tells me that she is also hearing voices telling her to harm herself. She admits to marijuana use today, denies ETOH or additional drug use. Denies HI, visual hallucinations, chest pain, shortness of breath, abdominal pain, n/v/d, headaches or dizziness. MD complaint: suicidal ideation and feels depressed Related Data Home Medications Medication Instructions Recorded Confirmed omeprazole 20 mg capsule,delayed 20 mg PO DAILY 11/29/20 05/01/22 release fluticasone 250 mcg-salmeterol 50 2 puff inhalation BID 08/02/21 05/01/22 mcg/dose blistr powdr for inhalation (Advair Diskus) duloxetine 60 mg capsule,delayed 60 mg PO QAM 08/03/21 05/01/22 release acetaminophen 500 mg tablet 500 mg PO Q6H PRN Pain (Scale 09/01/21 05/01/22 Score 1-3) albuterol sulfate 2.5 mg/3 mL 2.5 mg inhalation Q4H PRN 09/01/21 05/01/22 (0.083 %) solution for nebulization Shortness Of Breath fluticasone propionate 50 2 spray intranasal DAILY 10/03/21 05/01/22 mcg/actuation nasal spray,suspension nicotine (polacrilex) 2 mg gum 2 mg buccal Q2H PRN Nicotine 10/24/21 05/01/22 (Nicorette) Cravings benztropine 0.5 mg tablet 1 tab PO BID 04/29/22 05/01/22 cetirizine 10 mg tablet 1 tab PO DAILY 04/29/22 05/01/22 diphenhydramine HCl 50 mg capsule 2 cap PO BEDTIME 04/29/22 05/01/22 (Banophen) ferrous sulfate 325 mg (65 mg 1 tab PO DAILY 04/29/22 05/01/22 iron) tablet,delayed release haloperidol 5 mg tablet 1 tab PO TID 04/29/22 05/01/22 hydroxyzine pamoate 50 mg capsule 1 cap PO BID PRN anxiety 04/29/22 05/01/22 lithium carbonate 300 mg tablet 1 tab PO DAILY 04/29/22 05/01/22 lorazepam 1 mg tablet 1 tab PO TID PRN anxiety 04/29/22 05/01/22 prazosin 1 mg capsule 1 cap PO BEDTIME 04/29/22 05/01/22 prazosin 5 mg capsule 3 cap PO BEDTIME 04/29/22 05/01/22 topiramate 25 mg tablet 1 tab PO BID 04/29/22 05/01/22 trazodone 50 mg tablet 2 tab PO BEDTIME PRN Insomnia 04/29/22 05/01/22 zolpidem 5 mg tablet 1 tab PO BEDTIME PRN Insomnia 05/01/22 05/01/22 Previous Rx's Medication Instructions Recorded haloperidol decanoate 50 mg/mL 75 mg (1.5 mL) IM Q28D@1300 28 09/22/21 intramuscular solution days #1.5 mL Allergies Allergy/AdvReac Type Severity Reaction Status Date / Time carbamazepine [From TEGRETOL] AdvReac Unknown NAUSEA & Verified 03/17/22 13:02 VOMITING Review of Systems Review of Systems: Constitutional : No Weight loss, No Fever, No Chills, No Fatigue, No Malaise ENT/Mouth : No sore throat, No Rhinorrhea Eyes: No Eye Pain, No Swelling, No Redness Cardiovascular : No Chest Pain, No SOB, No Dyspnea on Exertion, No Orthopnea, No Edema, No Palpitations Respiratory : No Cough, No Sputum, No Wheezing Gastrointestinal : No Nausea, No Vomiting, No Diarrhea, No Constipation, No ab dominal Pain, No Hematochezia, No Melena Genitourinary : No Dysuria, No Urinary Frequency, No Hematuria, Musculoskeletal : No joint pain, No Myalgias, No Joint Swelling Skin : No Skin Lesions, No rash Neuro : No Weakness, No Numbness, No Dizziness, No Headache Psych : No Anxiety/Panic, + Depression, + SI, + auditory hallucinations, no visual hallucinations, No HI All other systems reviewed and are negative Yes all other systems are reviewed and are negative [facility] Past Medical History Attestation statement: The following information was validated with the patient. Source: old records reviewed and nursing notes reviewed Medical History Acute post-traumatic stress disorder Adjustment disorder Anxiety Asthma Borderline personality disorder Chronic post-traumatic stress disorder (PTSD) COPD (chronic obstructive pulmonary disease) Depression GERD (gastroesophageal reflux disease) Increased BMI Injury, self-inflicted Intentional self-harm PTSD (post-traumatic stress disorder) Recurrent major depression-severe Schizoaffective disorder Self-harming behavior Suicidal ideation Suicidal ideation Social History Social History Household Members: Other Household Members Other:: senior living Housing: Other Housing Other:: senior living Do you presently have visiting nurse or other home services: No Alcohol intake: never Patient Tobacco Use Status: Former Tobacco user Quit Date: 02-19-21 Tobacco use type: Cigarette Cigarette Packs Per Day: 1 Cigarettes Per Day: 20.0 Years Smoked: 17 e-Cigarette/Vaping Use: Never Used Second Hand Smoke Exposure: Yes Substance Use Type: Marijuana Advance Directives: No Advance Directives Information Provided: Yes service: No Sexual orientation: Don't Know Physical Exam Vital Signs: Vital Signs: Last Vital Signs Temp 98.2 F 05/01/22 20:19 Pulse 112 H 05/01/22 20:19 Resp 18 05/01/22 20:19 BP 107/57 L 05/01/22 20:19 Pulse Ox 95 05/01/22 20:19 O2 Del Method 05/01/22 20:19 BMI result Body Mass Index 48.8 VSS Appearance: Alert.? Oriented X3.? No acute distress.? Head: Normocephalic, atraumatic, no step-offs or deformities Eyes: Pupils equal, round and reactive to light.? Neck: Normal inspection.? Neck supple.? CVS: Normal heart rate and rhythm.? Pulses normal.? Respiratory: No respiratory distress.? Breath sounds normal.? Abdomen: Soft and nontender.? Skin: Skin warm and dry.? Normal skin color.? Normal skin turgor.?Superficial linear abrasions to bilateral upper extremities, no active bleeding. Extremities: No lower extremity edema.? No calf ttp. 5/5 strength to bilateral upper and lower extremities Neuro: Oriented X 3.? No motor deficit.? No sensory deficit. CN 2-12 intact Psych: Flat affect. Responsive to questions. Does not appear to be responding to external stimuli. Course Reevaluation(s) Reevaluation #1: CBC within normal limits. Chemistry with no acute electrolyte abnormalities requiring intervention. Urine clean. Urine toxicology positive for fentanyl and marijuana. Negative ethanol. COVID negative. At this time patient will be placed into physician observation to allow more time to be evaluated by the behavioral health team. At time observation was started patient common cooperative no acute distress. Will continue to monitor. Time: 20:43 MDM - Psych MDM Narrative Medical decision making narrative: 37-year-old female presents with a PMHx of schizoaffective disorder depressive type, borderline personality disorder,? PTSD, self-inflicted injuries presenting with depression, SI, plan to cut. PE remarkable for superficial abrasions over bilateral upper extremities, no active bleeding. Plan at this time is medical clearance and evaluation by the behavioral health team. Medical Records Attestation: I reviewed the patient's medical records. Lab Data Attestation: I reviewed the patient's lab results. Result diagrams: 05/01/22 18:52 05/01/22 18:52 Labs: Lab Results 05/01/22 05/01/22 05/01/22 Range/Units 18:20 18:52 18:52 WBC 10.6 (4.8-10.8) X10*3/uL RBC 4.32 (4.20-5.50) X10*6/uL Hgb 12.9 (12.0-16.0) g/dl Hct 38.8 (37.0-47.0) % MCV 89.8 (80.0-98.0) fL MCH 29.9 (27.0-33.0) pg MCHC 33.2 (31.0-35.0) g/dl RDW 14.8 (11.0-16.0) % Plt Count 235 (160-400) X10*3/uL MPV 11.8 (9.4-12.3) fL Immature Gran % (Auto) 0.3 (0.0-0.4) % Neut % (Auto) 83.0 H (45-73) % Lymph % (Auto) 12.3 L (20-40) % [place] % (Auto) 4.1 (2-11) % Eos % (Auto) 0.1 (0-4) % Baso % (Auto) 0.2 (0-2) % Lymph # (Auto) 1.3 (1.2-4.9) X10*3/uL [place] # (Auto) 0.4 (0.1-1.2) X10*3/uL Eos # (Auto) 0.0 (0.0-0.4) X10*3/uL Baso # (Auto) 0.0 (0.0-0.2) X10*3/uL Abs Immat Gran (auto) 0.03 (0.00-0.03) X10*3/uL Absolute Neuts (auto) 8.8 H (2.0-8.3) x10*3/uL Absolute Nucleated RBC 0.000 (0.0-0.012) X10*3/uL Nucleated RBC % (auto) 0.0 (0.0-0.2) /100WBC Sodium 139 (135-145) mmol/L Potassium 4.1 (3.3-5.1) mmol/L Chloride 110 H (96-108) mmol/L Carbon Dioxide 20 L (22-29) mmol/L Anion Gap 13 (12-20) BUN 7 L (9-16) mg/dL Creatinine 0.82 (0.5-1.4) mg/dL Estim Creat Clear Calc 108.7 Estimated GFR > 60 Random Glucose 100 (60-115) mg/dL Calcium 9.5 (8.4-10.2) mg/dL Magnesium 1.9 (1.6-2.6) mg/dL Total Bilirubin 0.3 (0.0-1.0) mg/dL AST 12 (5-31) U/L ALT 13 (0-31) U/L Alkaline Phosphatase 79 (39-117) U/L Total Protein 6.7 (6.5-8.0) g/dL Albumin 4.2 (3.5-5.0) g/dL Urine Color Urine Appearance Urine pH (5.0-9.0) Ur Specific [place] (1.005-1.025) Urine Protein (Neg-Trace) mg/dL Urine Glucose (UA) (Negative) mg/dL Urine Ketones (Negative) mg/dL Urine Blood (Negative) Urine Nitrite (Negative) Ur Leukocyte Esterase (Negative) Urine Opiates Screen (Not Detect) Urine Fentanyl Screen (Not Detect) Ur Barbiturates Screen (Not Detect) Ur Phencyclidine Scrn (Not Detect) Ur Amphetamines Screen (Not Detect) U Benzodiazepines Scrn (Not Detect) Urine Cocaine Screen (Not Detect) U Marijuana (THC) Screen (Not Detect) Ethyl Alcohol < 10 mg/dL COVID-19 (RAFAL) Negative (Negative) COVID-19 Clin Com See Note 05/01/22 05/01/22 Range/Units 18:58 18:58 WBC (4.8-10.8) X10*3/uL RBC (4.20-5.50) X10*6/uL Hgb (12.0-16.0) g/dl Hct (37.0-47.0) % MCV (80.0-98.0) fL MCH (27.0-33.0) pg MCHC (31.0-35.0) g/dl RDW (11.0-16.0) % Plt Count (160-400) X10*3/uL MPV (9.4-12.3) fL Immature Gran % (Auto) (0.0-0.4) % Neut % (Auto) (45-73) % Lymph % (Auto) (20-40) % [place] % (Auto) (2-11) % Eos % (Auto) (0-4) % Baso % (Auto) (0-2) % Lymph # (Auto) (1.2-4.9) X10*3/uL [place] # (Auto) (0.1-1.2) X10*3/uL Eos # (Auto) (0.0-0.4) X10*3/uL Baso # (Auto) (0.0-0.2) X10*3/uL Abs Immat Gran (auto) (0.00-0.03) X10*3/uL Absolute Neuts (auto) (2.0-8.3) x10*3/uL Absolute Nucleated RBC (0.0-0.012) X10*3/uL Nucleated RBC % (auto) (0.0-0.2) /100WBC Sodium (135-145) mmol/L Potassium (3.3-5.1) mmol/L Chloride (96-108) mmol/L Carbon Dioxide (22-29) mmol/L Anion Gap (12-20) BUN (9-16) mg/dL Creatinine (0.5-1.4) mg/dL Estim Creat Clear Calc Estimated GFR Random Glucose (60-115) mg/dL Calcium (8.4-10.2) mg/dL Magnesium (1.6-2.6) mg/dL Total Bilirubin (0.0-1.0) mg/dL AST (5-31) U/L ALT (0-31) U/L Alkaline Phosphatase (39-117) U/L Total Protein (6.5-8.0) g/dL Albumin (3.5-5.0) g/dL Urine Color Yellow Urine Appearance Clear Urine pH 6.0 (5.0-9.0) Ur Specific [place] 1.010 (1.005-1.025) Urine Protein Negative (Neg-Trace) mg/dL Urine Glucose (UA) Negative (Negative) mg/dL Urine Ketones Trace (Negative) mg/dL Urine Blood Negative (Negative) Urine Nitrite Negative (Negative) Ur Leukocyte Esterase Negative (Negative) Urine Opiates Screen Not Detected (Not Detect) Urine Fentanyl Screen POSITIVE H (Not Detect) Ur Barbiturates Screen Not Detected (Not Detect) Ur Phencyclidine Scrn Not Detected (Not Detect) Ur Amphetamines Screen Not Detected (Not Detect) U Benzodiazepines Scrn Not Detected (Not Detect) Urine Cocaine Screen Not Detected (Not Detect) U Marijuana (THC) Screen POSITIVE H (Not Detect) Ethyl Alcohol mg/dL COVID-19 (RAFAL) (Negative) COVID-19 Clin Com Critical Care Time Critical Care Time Critical Care Time: No Discharge Plan Discharge Clinical Impression: Suicidal ideation, Depression, Borderline personality disorder Patient Disposition: Still a Patient Prescriptions: No Action omeprazole 20 mg capsule,delayed release(DR/EC) 20 mg PO DAILY fluticasone propion-salmeterol [Advair Diskus] 250-50 mcg/dose blister with device 2 puff inhalation BID duloxetine 60 mg capsule,delayed release(DR/EC) 60 mg PO QAM fluticasone propionate 50 mcg/actuation spray,suspension 2 spray intranasal DAILY nicotine (polacrilex) [Nicorette] 2 mg gum 2 mg buccal Q2H PRN (Reason: Nicotine Cravings) lithium carbonate 300 mg tablet 1 tab PO DAILY benztropine 0.5 mg tablet 1 tab PO BID haloperidol 5 mg tablet 1 tab PO TID diphenhydramine HCl [Banophen] 50 mg capsule 2 cap PO BEDTIME trazodone 50 mg tablet 2 tab PO BEDTIME PRN (Reason: Insomnia) cetirizine 10 mg tablet 1 tab PO DAILY prazosin 1 mg capsule 1 cap PO BEDTIME hydroxyzine pamoate 50 mg capsule 1 cap PO BID PRN (Reason: anxiety) topiramate 25 mg tablet 1 tab PO BID prazosin 5 mg capsule 3 cap PO BEDTIME lorazepam 1 mg tablet 1 tab PO TID PRN (Reason: anxiety) ferrous sulfate 325 mg (65 mg iron) tablet,delayed release (DR/EC) 1 tab PO DAILY albuterol sulfate 2.5 mg /3 mL (0.083 %) Solution For Nebulization 2.5 mg INHALATION Q4H PRN (Reason: Shortness Of Breath) acetaminophen 500 mg Tablet 500 mg PO Q6H PRN (Reason: Pain (Scale Score 1-3)) haloperidol decanoate 50 mg/mL Solution 75 mg IM Q28D@1300 28 Days Qty: 1.5 0RF zolpidem 5 mg tablet 1 tab PO BEDTIME PRN (Reason: Insomnia)
[2022-05-01] MEDS: OLANZapine 10 MG TABLET PO (18:08)
[2022-05-01] MEDS: diphenhydrAMINE HCL 25 MG TABLET 50 MG PO (18:09)
[2022-05-01] MEDS: LORazepam 1 MG TABLET 2 MG PO (18:09)
[2022-05-01 18:12] VITALS: BP 155/92; PULSE 118; PULSE 80; RESP 18; TEMP 36.9; O2SAT 97; BMI 48.8
[2022-05-01 18:51] LABS: COVID-19 Test Negative (Negative); IDNOW Serial# 55D5AD1C
--- NOTE | 2022-05-01 18:56 | PHA.MEDREC ---
Pharmacy Consult ? Medication Reconciliation Pharmacy has completed the medication reconciliation. Med rec completed by PIEDAD Meol on 04/29/2022. Compared med rec from 04/29/22 with claim history to complete med rec today. Edie Solorio, JennyferD
[2022-05-01 18:57] LABS: MANUAL DIFF FLAG NO
[2022-05-01 19:02] LABS: Basophils Percent Auto 0.2 % (0-2); Eosinophils Percent Auto 0.1 % (0-4); Hematocrit 38.8 % (37.0-47.0); Hemoglobin 12.9 g/dl (12.0-16.0); Imm Gran Abs Auto 0.03 X10*3/uL (0.00-0.03); Imm Gran Pct Auto 0.3 % (0.0-0.4); Lymphocytes Absolute Auto 1.3 X10*3/uL (1.2-4.9); Lymphocytes Percent Auto 12.3 % (20-40); Mean Corpuscular HGB Conc 33.2 g/dl (31.0-35.0); Mean Corpuscular Hemoglobin 29.9 pg (27.0-33.0); Mean Corpuscular Volume 89.8 fL (80.0-98.0); Mean Platelet Volume 11.8 fL (9.4-12.3); Monocytes Absolute Auto 0.4 X10*3/uL (0.1-1.2); Monocytes Percent Auto 4.1 % (2-11); Neutrophils Absolute Auto 8.8 x10*3/uL (2.0-8.3); Platelet Count 235 X10*3/uL (160-400); Red Blood Count 4.32 X10*6/uL (4.20-5.50); Red Cell Distribution Width 14.8 % (11.0-16.0); White Blood Count 10.6 X10*3/uL (4.8-10.8)
[2022-05-01 19:12] LABS: Appearance Urine Clear; Color Urine Yellow; Glucose Urine UA Negative (Negative); Leukocyte Esterase Urine Negative (Negative); Nitrite Urine Negative (Negative); Urine Blood Negative (Negative); Urine Ketones Trace mg/dL (Negative); Urine Protein Negative (Neg-Trace)
[2022-05-01 19:23] LABS: Alanine Aminotransferase 13 U/L (0-31); Albumin Level 4.2 g/dL (3.5-5.0); Alkaline Phosphatase 79 U/L (39-117); Anion Gap 13 (12-20); Aspartate Amino Transferase 12 U/L (5-31); Bilirubin Total 0.3 mg/dL (0.0-1.0); Blood Urea Nitrogen 7 mg/dL (9-16); Calcium 9.5 mg/dL (8.4-10.2); Carbon Dioxide 20 mmol/L (22-29); Chloride 110 mmol/L (96-108); Creatinine Clr Calc Pharmacy 108.7; Estimated Glomerular Filt Rate > 60; Ethanol < 10 mg/dL; Glucose Random 100 mg/dL (60-115); Magnesium 1.9 mg/dL (1.6-2.6); Potassium 4.1 mmol/L (3.3-5.1); Sodium 139 mmol/L (135-145); Total Protein 6.7 g/dL (6.5-8.0)
[2022-05-01 19:24] LABS: Amphetamine Screen Urine Not Detected (Not Detect); Barbiturates, Urine Not Detected (Not Detect); Benzodiazepines Screen Urine Not Detected (Not Detect); Cannabinoid Screen Urine POSITIVE (Not Detect); Cocaine Screen Urine Not Detected (Not Detect); Fentanyl, urine POSITIVE (Not Detect); Opiate Screen Urine Not Detected (Not Detect); Phencyclidine Screen Urine Not Detected (Not Detect)
[2022-05-01] MEDS: traZODone HCL 100 MG TABLET PO (20:13)
[2022-05-01] MEDS: Topiramate 25 MG TABLET PO (20:13)
[2022-05-01] MEDS: Benztropine Mesylate 0.5 MG TABLET PO (20:13)
[2022-05-01] MEDS: LORazepam 1 MG TABLET PO (20:13)
[2022-05-01] MEDS: HaloperidoL 5 MG TABLET PO (20:13)
[2022-05-01] MEDS: Zolpidem Tartrate 5 MG TABLET PO (20:13)
[2022-05-01] MEDS: diphenhydrAMINE HCL 25 MG TABLET 100 MG PO (20:14)
[2022-05-01] MEDS: DULoxetine HCl 60 MG CAPSULE.DR PO (20:14)
[2022-05-01 20:19] VITALS: BP 107/57; PULSE 112; RESP 18; TEMP 36.8; O2SAT 95
--- NOTE | 2022-05-01 20:25 | MHC.CARE ---
Pt is a 37-year old, [place]auasian female who is being assessed by the CARE TEAM due experiencing increase depression and cutting her arm with plastic knife. It should be noted, pt was observed cutting her left arm with a piece of plastic while in the pod. Sharps was removed by staff. She is observed with multiple superficial cuts on her left arm. Pt reported feeling depressed and sad after receiving a letter in the mail with the trial date for her sister's murder. She stated she is grieving and is experiencing auditory hallucinations telling her she is stupid and to kill herself. Pt expressed suicidal ideation with a plan to cut her arms with intent to bleed out. Pt reported she does not want to be admitted to inpatient facility, however stated she does not feel safe returning to her retirement at this time. Pt is calm and cooperative throughout assessment. Speech is clear. Eye contact is maintained. She reports mood is depressive; affect is congruent. She is orientated x3 . She reports suicidal thoughts with a plan to cut her arms with a plan to bleed out. She reports responding to an internal stimuli throughout assessment. Thought process is depressive. Thought content is focused on cutting her arms. Insight, judgment and impulse control appear to be impaired, evidence by pt engaging in injurious behaviors. Pt reports interruptive sleep due to having nightmares and reports lack of appetite. Pt appears to be struggling to regulate her emotions secondary to grieving the of her sister and being triggered when receiving a trial date letter. Pt has engaged in superficially cutting her arms and is observed with various cuts. Pt continues to express thoughts to cut her arms and reported not feeling safe returning to her retirement at this time. Pt will remain in ED and will be considered for discharged in the morning.
[2022-05-01 21:03] LABS: Acetaminophen LAB < 1 mcg/mL (<30); Salicylate < 5.0 mg/dL (15-30)
--- NOTE | 2022-05-02 06:03 | PC.NURSE ---
Patient slept through the night, no distress observed/reported, patient is on 1:1 for safety observation due to suicidal risk, patient was assessed by care team disposition discharge in the morning back to shelter, medication compliant, mood depressed, no self harming behavior during overnight shift, will continue to monitor.
[2022-05-02 06:29] VITALS: BP 110/62; PULSE 98; RESP 16; TEMP 36.8; O2SAT 96
[2022-05-02 08:22] VITALS: BP 118/73; PULSE 71; RESP 17; TEMP 36.6; O2SAT 95
[2022-05-02] MEDS: Lithium Carbonate 300 MG CAPSULE PO (08:40)
[2022-05-02] MEDS: Topiramate 25 MG TABLET PO (08:40)
[2022-05-02] MEDS: Ferrous Sulfate 324 MG TABLET.DR PO (08:40)
[2022-05-02] MEDS: HaloperidoL 5 MG TABLET PO (08:40)
[2022-05-02] MEDS: Loratadine 10 MG TABLET PO (08:40)
[2022-05-02] MEDS: DULoxetine HCl 60 MG CAPSULE.DR PO (08:40)
[2022-05-02] MEDS: Benztropine Mesylate 0.5 MG TABLET PO (08:41)
[2022-05-02] MEDS: Fluticasone/Vilanterol 200/25 BLST.W.DEV 1 PUFF INHALE (09:31)
[2022-05-02] MEDS: Fluticasone Propionate Nasal 16 GM SPRAY 2 SPRAY NOSTRIL-B (09:31)
--- NOTE | 2022-05-02 09:54 | MHC.CARE ---
Pt?s CARE Plan was reviewed. Pt is a 37 y/o Single, Indonesian speaking, female who is previously known to the CARE Team via prior assessments and in patient stays.? Yesterday, pt presented to the ED via ambulance with a complaint of?vague SI, Pt reports she was feeling depressed and stressed at her usp, she reported this to staff and requested to speak with crisis but was allegedly denied.? Pt reports she was concerned that her friend was angry with her and was having difficulty processing this.? Additionally, the 2 year anniversary of her sister?s murder is approaching and pt stated that she is having a difficult time with that as well.? Pt admits to marijuana use yesterday and denies any additional drug use. Pt reports purchasing her marijuana from a dispensary yesterday.? Previously this week, pt had a positive tox screen for Fentanyl.? She still shows positive for that substance.? She denies HI, SI, , VH and self-harm urges.? She did report cutting herself yesterday and showed CARE Team superficial cuts on her forearm.? These did not require medical intervention.? She reports AH at baseline but they are now manageable.? She stated that her voices have grown worse recently, she attributes this to stress. CARE Team met with pt regarding healthy coping mechanisms, implementation of such, and discussed what she has done in the past that was helpful.? Additional supports during this time of year were suggested, such as additional sessions with her therapist, speaking with staff etc. Pt has been cleared for risk and will be discharged back to the .? CARE Team will conduct a follow up phone call tomorrow to check in on pt.? Pt has been placed on alert with [facility] crisis.? This disposition was discussed with and agreed upon by CARE Team control systems drafting officer clinician HORTENSIA Teran, ED provider Martina, and pt?s nurse NINA Johnson. Pt?s was contacted and will be unable to collect pt due to insufficient staffing.? CARE Team will secure a [employer].
--- NOTE | 2022-05-03 14:33 | MHC.CARE ---
CARE Team contacts pt for a follow up call after her discharge. Pt is in good spirits and is considering [facility]. She reports that her voices are manageable and she is not experiencing self-harm urges.
== END 2022-05-02 10:26 | disposition home or self-care (01) ==
PROVIDERS: Physician Assistant; Emergency Provider Internal Medicine
DX: R45.851 Suicidal ideations (principal); F25.1 Schizoaffective disorder, depressive type; F60.3 Borderline personality disorder; S40.812A Abrasion of left upper arm, initial encounter; S40.811A Abrasion of right upper arm, initial encounter; X78.9XXA Intentional self-harm by unspecified sharp object, initial encounter; F43.12 Post-traumatic stress disorder, chronic; F12.90 Cannabis use, unspecified, uncomplicated; Z20.822 Contact with and (suspected) exposure to COVID-19; Z91.52 Personal history of nonsuicidal self-harm; Z79.899 Other long term (current) drug therapy; Z87.891 Personal history of nicotine dependence; Y93.9 Activity, unspecified; Y92.049 Unspecified place in boarding-house as the place of occurrence of the external cause; Y99.9 Unspecified external cause status
CPT/HCPCS: 80053; 80143; 80179; 80307; 81003; 82077; 83735; 85025; 87635; 99284; 99285; Q0163

== ENCOUNTER 2022-05-05 19:13 | Emergency (ER) | payer OTHER, SELFPAY ==
[2022-05-05 19:21] VITALS: BP 142/96; PULSE 121; RESP 18; TEMP 36.9; O2SAT 97; BMI 44.4
[2022-05-05 19:25] VITALS: RESP 20
[2022-05-05] MEDS: diphenhydrAMINE HCL 50 MG/ML VIAL IM (19:25)
[2022-05-05] MEDS: Haloperidol Lactate 5 MG/ML VIAL 10 MG IM (19:25)
[2022-05-05 19:40] VITALS: RESP 20
--- NOTE | 2022-05-05 19:41 | ED.PSYCH ---
HPI - Psych General Chief Complaint: Psychiatric Symptoms Stated Complaint: si Time Seen by Provider: 05/05/22 19:19 Source: patient and RN notes reviewed Mode of arrival: EMS Limitations: other (Very anxious at the time of evaluation) History of Present Illness HPI Narrative: 37-year-old female who presents emergency department for evaluation increased depression and suicidal ideation. Information came from the ED psychiatric unit nurse since the patient was very anxious and did not want answer questions. Apparently the patient is at a new long term which has triggered increased depression in her. She also has increased depression since the anniversary of her sister's is getting closer. The patient was having suicidal thoughts and called the police, EMS was dispatched the patient was transported to the emergency department. When the patient got in the emergency department she got up ran and struck her head against the wall. She had no loss of consciousness. She is extremely anxious and she states that she will accept some medications to help control her anxiety and her suicidal ideation. Patient has been seen multiple times in the emergency department with her last visit on 05/01/2022 where she was evaluated for suicidal ideation and depression MD complaint: suicidal ideation and feels depressed Onset (ago): day(s) Duration: constant History of same: Yes Relieving factors: none Exacerbating factors: other (New new long term) Associated psychiatric symptoms: depression and suicidal ideation Treatments prior to arrival: none Related Data Home Medications Medication Instructions Recorded Confirmed omeprazole 20 mg capsule,delayed 20 mg PO DAILY 11/29/20 05/05/22 release fluticasone 250 mcg-salmeterol 50 2 puff inhalation BID 08/02/21 05/05/22 mcg/dose blistr powdr for inhalation (Advair Diskus) duloxetine 60 mg capsule,delayed 60 mg PO QAM 08/03/21 05/05/22 release acetaminophen 500 mg tablet 500 mg PO Q6H PRN Pain (Scale 09/01/21 05/05/22 Score 1-3) albuterol sulfate 2.5 mg/3 mL 2.5 mg inhalation Q4H PRN 09/01/21 05/05/22 (0.083 %) solution for nebulization Shortness Of Breath fluticasone propionate 50 2 spray intranasal DAILY 10/03/21 05/05/22 mcg/actuation nasal spray,suspension nicotine (polacrilex) 2 mg gum 2 mg buccal Q2H PRN Nicotine 10/24/21 05/05/22 (Nicorette) Cravings benztropine 0.5 mg tablet 1 tab PO BID 04/29/22 05/05/22 cetirizine 10 mg tablet 1 tab PO DAILY 04/29/22 05/05/22 diphenhydramine HCl 50 mg capsule 2 cap PO BEDTIME 04/29/22 05/05/22 (Banophen) ferrous sulfate 325 mg (65 mg 1 tab PO DAILY 04/29/22 05/05/22 iron) tablet,delayed release haloperidol 5 mg tablet 1 tab PO TID 04/29/22 05/05/22 hydroxyzine pamoate 50 mg capsule 1 cap PO BID PRN anxiety 04/29/22 05/05/22 lithium carbonate 300 mg tablet 1 tab PO DAILY 04/29/22 05/05/22 lorazepam 1 mg tablet 1 tab PO TID PRN anxiety 04/29/22 05/05/22 prazosin 1 mg capsule 1 cap PO BEDTIME 04/29/22 05/05/22 prazosin 5 mg capsule 3 cap PO BEDTIME 04/29/22 05/05/22 topiramate 25 mg tablet 1 tab PO BID 04/29/22 05/05/22 trazodone 50 mg tablet 2 tab PO BEDTIME PRN Insomnia 04/29/22 05/05/22 zolpidem 5 mg tablet 1 tab PO BEDTIME PRN Insomnia 05/01/22 05/05/22 Previous Rx's Medication Instructions Recorded haloperidol decanoate 50 mg/mL 75 mg (1.5 mL) IM Q28D@1300 28 09/22/21 intramuscular solution days #1.5 mL Allergies Allergy/AdvReac Type Severity Reaction Status Date / Time carbamazepine [From TEGRETOL] AdvReac Unknown NAUSEA & Verified 03/17/22 13:02 VOMITING Review of Systems Review of Systems: Yes Unobtainable due to mental condition (Anxiety) PMFSH Past Medical History Medical History Acute post-traumatic stress disorder Adjustment disorder Anxiety Asthma Borderline personality disorder Chronic post-traumatic stress disorder (PTSD) COPD (chronic obstructive pulmonary disease) Depression GERD (gastroesophageal reflux disease) Increased BMI Injury, self-inflicted Intentional self-harm PTSD (post-traumatic stress disorder) Recurrent major depression-severe Schizoaffective disorder Self-harming behavior Suicidal ideation Suicidal ideation Social History Social History Household Members: Other Household Members Other:: long term Housing: Other Housing Other:: long term Do you presently have visiting nurse or other home services: No Alcohol intake: never Patient Tobacco Use Status: Former Tobacco user Quit Date: 02-19-21 Tobacco use type: Cigarette Cigarette Packs Per Day: 1 Cigarettes Per Day: 20.0 Years Smoked: 17 e-Cigarette/Vaping Use: Never Used Second Hand Smoke Exposure: Yes Substance Use Type: Marijuana Advance Directives: No Advance Directives Information Provided: No service: No Sexual orientation: Don't Know Physical Exam Vital Signs: Vital Signs: Last Vital Signs Temp 98.5 F 05/05/22 19:21 Pulse 97 05/05/22 20:25 Resp 18 05/05/22 20:25 BP 125/85 05/05/22 20:25 Pulse Ox 98 05/05/22 20:25 O2 Del Method 05/05/22 20:25 BMI result Body Mass Index 44.4 Const: Other: Awake, oriented to person, appears very anxious, she is tremulous, she does not want to answer any questions HEENT: Head: Yes normal to inspection, Yes normocephalic and Yes atraumatic Ears: external ears normal General nose exam: Normal external nose present Face and sinus: Yes normal facial exam Mouth: Normal oral and palatal mucosa present Throat: Yes posterior oropharynx normal Eyes: General: appearance normal, both eyes and all related structures Pupils: Equal, round and reactive pupils present Neck: Neck: Yes normal visual inspection, Yes no lymphadenopathy, Yes trachea midline and Yes supple Chest: Chest palpation & inspection: normal inspection of the chest and normal palpation of entire chest wall Resp: Effort & Inspection: normal respiratory effort and able to speak in complete sentences Auscultation: clear to auscultation bilaterally Cardio: Rate: regular rate Rhythm: regular rhythm Heart sounds: S1 normal heart sound present, S2 normal heart sound present and no murmurs GI: Inspection: Yes normal to inspection Palpation (GI): Soft to palpation, nontender and no guarding Auscultation: normal bowel sounds : General: Yes no CVA tenderness Back/Spine/Pelvis: Back: no CVA tenderness Skin: General skin exam: no rashes or lesions noted Neuro: Cranial nerves: Yes CN's II-XII intact bilaterally and Yes Equal, round and reactive pupils present Cognition (Neuro): normal cognition Motor exam (neuro): 5/5 motor strength present throughout Extrem: Other: Patient was all extremities symmetrically, the patient's right forearm is bandaged this time, she does not want you to take down the bandage. Psych: Appearance: other (Very anxious, very tremulous) Speech and movement: Clear speech present Affect: Anxious affect present Attitude: Avoids eye contact (attititude/behavior) Thought content: Suicidality present Course Course Course Narrative: 37-year-old female well-known to the emergency department who presents emergency department for evaluation of depression and suicidal ideation. The patient called the police from her long term and was brought to emergency department by ambulance for evaluation. When the patient got the emergency department she ran into a wall and struck her head. She had no loss of consciousness. The patient appears to be very anxious. She states that she will take medications to help her calm down and help with suicidal ideation. The patient was ordered to get Haldol 10 mg IM and Benadryl 50 mg IM. I did order laboratory evaluation includes CBC, CMP, acetaminophen, salicylate, lithium, urine drug screen, urinalysis, urine test and COVID-19 test. 210: The patient was seen by the care team clinician. At this time the patient denies being suicidal. She states that she wants to go back to her long term and she is looking forward to getting ECT therapy tomorrow since she believes it is helping her. Therefore, the patient will be discharged home. Discharge Plan Discharge Clinical Impression: Depression with suicidal ideation Patient Disposition: Home, Self-Care Additional Instructions: You were treated here in the emergency department with Haldol 10 mg IM and Benadryl 50 mg IM This medication will make you sleepy, so when you get back to your long term just go to bed. Follow-up with your doctor in 2 days. Please return to the emergency department if your symptoms get worse or if you develop any symptoms that are concerning to you. Prescriptions: No Action omeprazole 20 mg capsule,delayed release(DR/EC) 20 mg PO DAILY fluticasone propion-salmeterol [Advair Diskus] 250-50 mcg/dose blister with device 2 puff inhalation BID duloxetine 60 mg capsule,delayed release(DR/EC) 60 mg PO QAM fluticasone propionate 50 mcg/actuation spray,suspension 2 spray intranasal DAILY nicotine (polacrilex) [Nicorette] 2 mg gum 2 mg buccal Q2H PRN (Reason: Nicotine Cravings) lithium carbonate 300 mg tablet 1 tab PO DAILY benztropine 0.5 mg tablet 1 tab PO BID haloperidol 5 mg tablet 1 tab PO TID diphenhydramine HCl [Banophen] 50 mg capsule 2 cap PO BEDTIME trazodone 50 mg tablet 2 tab PO BEDTIME PRN (Reason: Insomnia) cetirizine 10 mg tablet 1 tab PO DAILY prazosin 1 mg capsule 1 cap PO BEDTIME hydroxyzine pamoate 50 mg capsule 1 cap PO BID PRN (Reason: anxiety) topiramate 25 mg tablet 1 tab PO BID prazosin 5 mg capsule 3 cap PO BEDTIME lorazepam 1 mg tablet 1 tab PO TID PRN (Reason: anxiety) ferrous sulfate 325 mg (65 mg iron) tablet,delayed release (DR/EC) 1 tab PO DAILY albuterol sulfate 2.5 mg /3 mL (0.083 %) Solution For Nebulization 2.5 mg INHALATION Q4H PRN (Reason: Shortness Of Breath) acetaminophen 500 mg Tablet 500 mg PO Q6H PRN (Reason: Pain (Scale Score 1-3)) haloperidol decanoate 50 mg/mL Solution 75 mg IM Q28D@1300 28 Days Qty: 1.5 0RF zolpidem 5 mg tablet 1 tab PO BEDTIME PRN (Reason: Insomnia)
[2022-05-05 19:55] VITALS: RESP 18
[2022-05-05 20:10] VITALS: RESP 18
[2022-05-05 20:25] VITALS: BP 125/85; PULSE 97; RESP 18; O2SAT 98
--- NOTE | 2022-05-05 20:59 | MHC.CARE ---
CARE team met with pt to assess level of risk for harm to self and others. Pt arrived to the ED via ambulance after calling EMS endorsing suicidal ideation with no plan. On arrival to the hospital the pt became agitated, started hitting herself in the head, and walked away from [facility] staff and hit her head on the wall. She was able to de-escalate and received IM medication to aid in regulating. She reported that she is feeling better and no longer experiencing thoughts of suicide or self harm. She reflected that she has been having a difficult time at her jail feeling that they don't care about her and is also anticipating that she will continue to struggle because of the impending anniversary of her sister's murder on June 18. Pt reported that she had an appointment with her psychiatrist today, who added ALEJANDRO buckonopin to help with managing anxiety and agitation. She has ECT tomorrow at 3pm, which she receives treatments at [facility] 3 times per week. Pt is advocating for discharge back to her jail this evening, as she feels that being there is a better environment for her than the hospital at this time. There are no safety concerns at this time. CARE team consulted with ED attending physician Danilo Foster MD who is in agreement with plan for discharge. Pt will be transported home via lyft.
[2022-05-05] MEDS: diphenhydrAMINE HCL 25 MG TABLET 100 MG PO (21:01)
[2022-05-05] MEDS: LORazepam 1 MG TABLET PO (21:02)
[2022-05-05] MEDS: Prazosin HCL 1 MG CAPSULE PO (21:02)
[2022-05-05] MEDS: Prazosin HCL 5 MG CAPSULE 15 MG PO (21:02)
[2022-05-05] MEDS: Benztropine Mesylate 0.5 MG TABLET PO (21:02)
[2022-05-05 21:05] LABS: COVID-19 Test Negative (Negative); IDNOW Serial# 16C4AD1C
[2022-05-05 21:09] LABS: UPreg QC Valid YES; Urine Pregnancy NEGATIVE (NEGATIVE)
[2022-05-05 21:09] LABS: Appearance Urine Cloudy; Color Urine Yellow; Glucose Urine UA Negative (Negative); Leukocyte Esterase Urine Trace (Negative); Nitrite Urine Negative (Negative); PH 6.5 (5.0-9.0); UMIC TRIGGER UA YES; Urine Blood Moderate (2+) (Negative); Urine Ketones Negative (Negative); Urine Protein Negative (Neg-Trace)
[2022-05-05 21:21] LABS: Bacteria Urine 1+ (None Seen); Hyaline Casts Urine 0-2 /LPF (0-2); RBC Urine 0-2 /HPF (0-2); Squamous Epithelial Cell Urine >20 /HPF (0-2); WBC Urine 0-5 /HPF (0-5)
[2022-05-05 21:23] LABS: Amphetamine Screen Urine Not Detected (Not Detect); Barbiturates, Urine Not Detected (Not Detect); Benzodiazepines Screen Urine Not Detected (Not Detect); Cannabinoid Screen Urine POSITIVE (Not Detect); Cocaine Screen Urine Not Detected (Not Detect); Fentanyl, urine POSITIVE (Not Detect); Opiate Screen Urine Not Detected (Not Detect); Phencyclidine Screen Urine Not Detected (Not Detect)
== END 2022-05-05 21:11 | disposition home or self-care (01) ==
PROVIDERS: Emergency Medicine; Emergency Provider Emergency Medicine Emergency Medical Services
DX: F33.1 Major depressive disorder, recurrent, moderate (principal); R45.851 Suicidal ideations; F17.210 Nicotine dependence, cigarettes, uncomplicated; Z71.6 Tobacco abuse counseling; Z20.822 Contact with and (suspected) exposure to COVID-19; Z79.899 Other long term (current) drug therapy
CPT/HCPCS: 80307; 81001; 81025; 87635; 96372; 99283; 99285; J1200; Q0163

== ENCOUNTER 2022-05-06 17:31 | Emergency (ER) | payer OTHER, SELFPAY ==
[2022-05-06] MEDS: OLANZapine ODT 10 MG TAB.RAPDIS TRANSLINGU (18:05)
[2022-05-06 18:06] VITALS: BP 118/71; BP 140/80; PULSE 84; PULSE 90; RESP 16; TEMP 36.9; O2SAT 97; O2SAT 99; BMI 44.4
[2022-05-06] MEDS: LORazepam 1 MG TABLET 2 MG PO (18:06)
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
[2022-05-06 18:39] LABS: COVID-19 Test Negative (Negative); IDNOW Serial# 55D5AD1C
[2022-05-06 19:42] LABS: MANUAL DIFF FLAG NO
[2022-05-06 19:52] LABS: Basophils Percent Auto 0.2 % (0-2); Eosinophils Percent Auto 0.4 % (0-4); Hematocrit 39.8 % (37.0-47.0); Hemoglobin 12.9 g/dl (12.0-16.0); Imm Gran Abs Auto 0.03 X10*3/uL (0.00-0.03); Imm Gran Pct Auto 0.3 % (0.0-0.4); Mean Corpuscular HGB Conc 32.4 g/dl (31.0-35.0); Mean Corpuscular Hemoglobin 29.7 pg (27.0-33.0); Mean Corpuscular Volume 91.5 fL (80.0-98.0); Mean Platelet Volume 11.5 fL (9.4-12.3); Monocytes Absolute Auto 0.6 X10*3/uL (0.1-1.2); Monocytes Percent Auto 5.9 % (2-11); Neutrophils Absolute Auto 6.6 x10*3/uL (2.0-8.3); Neutrophils Percent Auto 71.2 % (45-73); Platelet Count 241 X10*3/uL (160-400); Red Blood Count 4.35 X10*6/uL (4.20-5.50); Red Cell Distribution Width 14.9 % (11.0-16.0); White Blood Count 9.3 X10*3/uL (4.8-10.8)
[2022-05-06 20:08] LABS: Acetaminophen LAB < 1 mcg/mL (<30); Alanine Aminotransferase 15 U/L (0-31); Albumin Level 4.1 g/dL (3.5-5.0); Alkaline Phosphatase 76 U/L (39-117); Anion Gap 15 (12-20); Aspartate Amino Transferase 17 U/L (5-31); Bilirubin Total 0.3 mg/dL (0.0-1.0); Blood Urea Nitrogen 11 mg/dL (9-16); Calcium 9.4 mg/dL (8.4-10.2); Carbon Dioxide 22 mmol/L (22-29); Chloride 109 mmol/L (96-108); Creatinine Clr Calc Pharmacy 90.8; Estimated Glomerular Filt Rate > 60; Ethanol < 10 mg/dL; Glucose Random 76 mg/dL (60-115); Potassium 3.8 mmol/L (3.3-5.1); Salicylate < 5.0 mg/dL (15-30); Sodium 142 mmol/L (135-145); Total Protein 6.7 g/dL (6.5-8.0)
[2022-05-06 20:10] VITALS: BP 106/54; PULSE 85
[2022-05-06] MEDS: HaloperidoL 5 MG TABLET PO (20:21)
[2022-05-06] MEDS: Zolpidem Tartrate 5 MG TABLET PO (20:21)
[2022-05-06] MEDS: LORazepam 1 MG TABLET PO (20:21)
[2022-05-06] MEDS: diphenhydrAMINE HCL 25 MG TABLET 100 MG PO (20:21)
[2022-05-06] MEDS: traZODone HCL 100 MG TABLET PO (20:21)
[2022-05-06] MEDS: Topiramate 25 MG TABLET PO (20:21)
[2022-05-06] MEDS: Benztropine Mesylate 0.5 MG TABLET PO (20:21)
--- NOTE | 2022-05-07 02:26 | MHC.CARE ---
Late Entry: CARE Team met with pt to assist as pt was dysregulated and needed distraction. Pt explains that she has been struggling due to a staff member at her program being away this week. Pt states that her sister's anniversary is also approaching and I just want to and be with my sister . CARE Team provided active listening and distraction/ coping skills per CARE Plan. pt was receptive to speaking about pilar and changed TV channel to pilar. Plan is for pt to remain the night given she is voicing that she feels unsafe to return. CARE Team will check in with pt in the morning and pt will likely d/c.
[2022-05-07 03:31] LABS: UPreg QC Valid YES; Urine Pregnancy NEGATIVE (NEGATIVE)
[2022-05-07 03:43] LABS: Amphetamine Screen Urine Not Detected (Not Detect); Barbiturates, Urine Not Detected (Not Detect); Benzodiazepines Screen Urine Not Detected (Not Detect); Cannabinoid Screen Urine POSITIVE (Not Detect); Cocaine Screen Urine Not Detected (Not Detect); Fentanyl, urine POSITIVE (Not Detect); Opiate Screen Urine Not Detected (Not Detect); Phencyclidine Screen Urine Not Detected (Not Detect)
[2022-05-07] MEDS: Omeprazole 20 MG CAPSULE.DR PO (05:45)
[2022-05-07 05:50] VITALS: BP 108/68; PULSE 68; RESP 16; TEMP 36.2; O2SAT 98
--- NOTE | 2022-05-07 06:01 | PC.NURSE ---
Patient slept through the night, no distress observed/reported, medication compliant, patient was observed on 1:1 for safety, care team spoke with patient/pending disposition, behavior non concerning at this time but ununpredictable, patient will be reevaluated in the morning, will continue to monitor.
--- NOTE | 2022-05-07 07:37 | PC.NURSE ---
Report received from night nurse NINA Russell. At this time pt remains asleep with 1:[address]
[2022-05-07] MEDS: Lithium Carbonate 300 MG CAPSULE PO (07:54)
[2022-05-07] MEDS: Topiramate 25 MG TABLET PO (07:54)
[2022-05-07] MEDS: DULoxetine HCl 60 MG CAPSULE.DR PO (07:54)
[2022-05-07] MEDS: Loratadine 10 MG TABLET PO (07:54)
[2022-05-07] MEDS: Benztropine Mesylate 0.5 MG TABLET PO (07:54)
[2022-05-07] MEDS: Ferrous Sulfate 324 MG TABLET.DR PO (07:54)
[2022-05-07] MEDS: HaloperidoL 5 MG TABLET PO (07:54)
[2022-05-07] MEDS: Fluticasone Propionate Nasal 16 GM SPRAY 2 SPRAY NOSTRIL-B (09:01)
[2022-05-07] MEDS: Fluticasone/Vilanterol 100/25 BLST.W.DEV 1 PUFF INHALE (09:02)
--- NOTE | 2022-05-07 10:28 | PC.NURSE ---
Pt spoke with member from the care team then ate breakfast and took morning medications with no issue this am. Pt is now sleeping again with 1:[address]
--- NOTE | 2022-05-07 13:27 | MHC.CARE ---
Pt?s CARE Plan was reviewed. Pt is a 37 y/o Single, [place]ian speaking, female who is previously known to the CARE Team via prior assessments and in patient stays.? Yesterday, pt presented to the ED via ambulance with a complaint of?SI and self-harm urges.? She reported that her auditory hallucinations had increased and had grown louder. Pt stated that the anniversary of her sister?s murder has been exceptionally challenging for her.? Pt admits to marijuana use yesterday and denies any additional drug use. Pt reports purchasing her marijuana from a dispensary yesterday.? CARE Team met with pt in the morning.? Pt was assessed for risk in her room in the behavioral health pod of the ED.? Pt was dressed in hospital attire; appeared disheveled, and appeared older than her stated age.? It was noted that pt appeared to have lost weight.? This morning, pt stated that she is still experiencing voices, louder than what is her norm.? She endorsed mild SI and the urge to bang her head against the wall and/or cut herself.? Pt stated that she feels as though she can be safe. Care team met with pt in the afternoon.? Pt continues to endorse AH, stating that she experiences that at baseline.? She reports that her voices are manageable at this time and at or close to her baseline.? Pt continues to endorse thoughts of self-harm but stated that there are no thoughts ?Of action?.? She denies and VH or SI. AT this time, pt appears to be at her baseline. Pt still has interest in respite and can explore respite placement from home.? Pt has been cleared for risk and will be discharged back to the .? CARE Team will conduct a follow up phone call tomorrow to check in on pt.? Pt has been on alert with N crisis since 05/02/22.? This disposition was discussed with and agreed upon by CARE Film Waxer Lynn BAZAN, ED provider Janet, and pt?s nurse NINA Lr. Pt?s was contacted and will be unable to collect pt due to insufficient staffing.? ?Staff advised CARE Team that she will be leaving the to take another resident to a medical appointment and will not be back at the until around 1500 today.? CARE Team will secure a Lyft for 1500.
== END 2022-05-07 15:37 | disposition home or self-care (01) ==
PROVIDERS: Physician Assistant; Emergency Provider Emergency Medicine
DX: R45.851 Suicidal ideations (principal); F31.9 Bipolar disorder, unspecified; F25.1 Schizoaffective disorder, depressive type; S50.812D Abrasion of left forearm, subsequent encounter; S50.811D Abrasion of right forearm, subsequent encounter; X78.9XXD Intentional self-harm by unspecified sharp object, subsequent encounter; Z20.822 Contact with and (suspected) exposure to COVID-19; F41.9 Anxiety disorder, unspecified; F60.3 Borderline personality disorder; F43.10 Post-traumatic stress disorder, unspecified; F12.90 Cannabis use, unspecified, uncomplicated; Z91.52 Personal history of nonsuicidal self-harm; Z87.891 Personal history of nicotine dependence; Z79.899 Other long term (current) drug therapy
CPT/HCPCS: 36415; 80053; 80143; 80179; 80307; 81025; 82077; 83735; 85025; 87635; 99284; Q0163

== ENCOUNTER 2022-05-08 19:42 | Emergency (ER) | payer OTHER, SELFPAY ==
[2022-05-08 19:58] VITALS: BP 138/92; PULSE 88; O2SAT 98; BMI 40.3
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
[2022-05-08] MEDS: OLANZapine 10 MG TABLET PO (21:02)
[2022-05-08] MEDS: LORazepam 1 MG TABLET PO (21:02)
[2022-05-08 21:26] LABS: MANUAL DIFF FLAG NO
[2022-05-08 21:45] LABS: Alanine Aminotransferase 14 U/L (0-31); Albumin Level 4.1 g/dL (3.5-5.0); Alkaline Phosphatase 73 U/L (39-117); Anion Gap 13 (12-20); Aspartate Amino Transferase 12 U/L (5-31); Bilirubin Total 0.4 mg/dL (0.0-1.0); Blood Urea Nitrogen 12 mg/dL (9-16); Carbon Dioxide 20 mmol/L (22-29); Chloride 110 mmol/L (96-108); Creatinine Clr Calc Pharmacy 139.9; Estimated Glomerular Filt Rate > 60; Ethanol < 10 mg/dL; Glucose Random 87 mg/dL (60-115); Potassium 3.8 mmol/L (3.3-5.1); Sodium 139 mmol/L (135-145); Total Protein 6.3 g/dL (6.5-8.0)
[2022-05-08 21:48] LABS: COVID-19 Test Negative (Negative); IDNOW Serial# 9DB6401D
[2022-05-08 21:49] LABS: Basophils Percent Auto 0.3 % (0-2); Eosinophils Percent Auto 0.4 % (0-4); Hematocrit 36.5 % (37.0-47.0); Imm Gran Abs Auto 0.02 X10*3/uL (0.00-0.03); Imm Gran Pct Auto 0.2 % (0.0-0.4); Lymphocytes Absolute Auto 2.4 X10*3/uL (1.2-4.9); Lymphocytes Percent Auto 25.2 % (20-40); Mean Corpuscular HGB Conc 32.9 g/dl (31.0-35.0); Mean Corpuscular Hemoglobin 29.5 pg (27.0-33.0); Mean Corpuscular Volume 89.7 fL (80.0-98.0); Mean Platelet Volume 11.5 fL (9.4-12.3); Monocytes Absolute Auto 0.6 X10*3/uL (0.1-1.2); Monocytes Percent Auto 5.9 % (2-11); Neutrophils Absolute Auto 6.4 x10*3/uL (2.0-8.3); Platelet Count 238 X10*3/uL (160-400); Red Blood Count 4.07 X10*6/uL (4.20-5.50); Red Cell Distribution Width 14.6 % (11.0-16.0); White Blood Count 9.4 X10*3/uL (4.8-10.8)
[2022-05-08 22:34] VITALS: BP 121/57; PULSE 81; RESP 18; TEMP 36.2; O2SAT 96
[2022-05-08 23:12] LABS: Acetaminophen LAB < 1 mcg/mL (<30); Salicylate < 5.0 mg/dL (15-30)
--- NOTE | 2022-05-09 11:50 | MHC.CARE ---
37 year old female arrived to [facility] ED via ambulance for vague complaints of SI w/plan to cut and AH. Pt reports she cut herself yesterday on her right forearm with a razor because the male voice told her too. This tech writer discussed a service plan with pt and she stated she will talk to the staff and/or stay distracted by watching TV. Pt mentioned she felt safe and expressed wanting to go home. Pt denied SI/HI/VH. Pt stated she hears voices but they are controllable at the moment. This tech writer had a telephonic encounter with Shelter staff Sahra and she reported pt has been having urges to cut for the past couple of days and hearing commanding voices telling her to cut and telling her that she is worthless. Staff denied having concerns as pt is at her baseline. She mentioned she is unable to pick pt up due to being only staff at the half-way. Care Team provided lyft.
== END 2022-05-09 12:14 | disposition home or self-care (01) ==
PROVIDERS: Physician Assistant; Emergency Provider Student in an Organized Health Care Education/Training Program
DX: F25.1 Schizoaffective disorder, depressive type (principal); R45.851 Suicidal ideations; S51.811A Laceration without foreign body of right forearm, initial encounter; S50.812A Abrasion of left forearm, initial encounter; S50.811A Abrasion of right forearm, initial encounter; X78.9XXA Intentional self-harm by unspecified sharp object, initial encounter; Z20.822 Contact with and (suspected) exposure to COVID-19; F60.3 Borderline personality disorder; F43.10 Post-traumatic stress disorder, unspecified; F12.90 Cannabis use, unspecified, uncomplicated; Z79.899 Other long term (current) drug therapy; Y93.9 Activity, unspecified; Y92.049 Unspecified place in boarding-house as the place of occurrence of the external cause; Y99.9 Unspecified external cause status
CPT/HCPCS: 80053; 80143; 80179; 82077; 85025; 87635; 99283; 99284; 99285

== ENCOUNTER 2022-05-13 17:47 | Emergency (ER) | payer OTHER, SELFPAY ==
--- NOTE | 2022-05-13 17:49 | ED_ITS ---
"HPI - Psych General Chief Complaint: Psychiatric Symptoms Stated Complaint: CRISIS,CUTTING ARM/STOMACH Time Seen by Provider: 05/13/22 20:57 Source: patient and EMS Mode of arrival: EMS Limitations: no limitations History of Present Illness HPI Narrative: 37-year-old female presents via EMS for suicidal ideation and self-injurious behaviors. Patient states that she cannot cope with her life stressors, had ECT earlier today, and feels like she wants to Bang her head until she dies. MD complaint: suicidal ideation, feels depressed and anxiety Onset (ago): year(s) Duration: constant History of same: Yes Relieving factors: medication Context: significant life stressor Associated psychiatric symptoms: depression, suicidal ideation, racing thoughts, auditory hallucinations and delusions Associated symptoms: denies other symptoms If self harm: admits thoughts of self harm, has plan, has acted on plan and self-inflicted trauma Related Data Home Medications Medication Instructions Recorded Confirmed omeprazole 20 mg capsule,delayed 20 mg PO DAILY 11/29/20 05/13/22 release fluticasone 250 mcg-salmeterol 50 2 puff inhalation BID 08/02/21 05/13/22 mcg/dose blistr powdr for inhalation (Advair Diskus) duloxetine 60 mg capsule,delayed 60 mg PO QAM 08/03/21 05/13/22 release acetaminophen 500 mg tablet 500 mg PO Q6H PRN Pain (Scale 09/01/21 05/13/22 Score 1-3) albuterol sulfate 2.5 mg/3 mL 2.5 mg inhalation Q4H PRN 09/01/21 05/13/22 (0.083 %) solution for nebulization Shortness Of Breath fluticasone propionate 50 2 spray intranasal DAILY 10/03/21 05/13/22 mcg/actuation nasal spray,suspension nicotine (polacrilex) 2 mg gum 2 mg buccal Q2H PRN Nicotine 10/24/21 05/13/22 (Nicorette) Cravings benztropine 0.5 mg tablet 1 tab PO BID 04/29/22 05/13/22 cetirizine 10 mg tablet 1 tab PO DAILY 04/29/22 05/13/22 diphenhydramine HCl 50 mg capsule 2 cap PO BEDTIME 04/29/22 05/13/22 (Banophen) ferrous sulfate 325 mg (65 mg 1 tab PO DAILY 04/29/22 05/13/22 iron) tablet,delayed release haloperidol 5 mg tablet 1 tab PO TID 04/29/22 05/13/22 hydroxyzine pamoate 50 mg capsule 1 cap PO BID PRN anxiety 04/29/22 05/13/22 lithium carbonate 300 mg tablet 1 tab PO DAILY 04/29/22 05/13/22 lorazepam 1 mg tablet 1 tab PO TID PRN anxiety 04/29/22 05/13/22 prazosin 1 mg capsule 1 cap PO BEDTIME 04/29/22 05/13/22 prazosin 5 mg capsule 3 cap PO BEDTIME 04/29/22 05/13/22 topiramate 25 mg tablet 1 tab PO BID 04/29/22 05/13/22 trazodone 50 mg tablet 2 tab PO BEDTIME PRN Insomnia 04/29/22 05/13/22 zolpidem 5 mg tablet 1 tab PO BEDTIME PRN Insomnia 05/01/22 05/13/22 Previous Rx's Medication Instructions Recorded haloperidol decanoate 50 mg/mL 75 mg (1.5 mL) IM Q28D@1300 28 09/22/21 intramuscular solution days #1.5 mL Allergies Allergy/AdvReac Type Severity Reaction Status Date / Time carbamazepine [From TEGRETOL] AdvReac Unknown NAUSEA & Verified 03/17/22 13:02 VOMITING Fish Containing Products AdvReac Stomach Verified 05/06/22 18:14 Upset Review of Systems Review of Systems: Constitutional: No Fever, No Chills ENT/Mouth: No Ear Pain, No Hoarseness, No sore throat Eyes: No Eye Pain, No Swelling, No Redness, No Foreign Body Cardiovascular: No Chest Pain, No SOB Respiratory: No Cough, No Dyspnea Gastrointestinal: No Nausea, No Vomiting, No Diarrhea, No abdominal Pain Genitourinary: No Dysuria, No Hematuria Musculoskeletal: positive joint pain, No Myalgias, No Joint Swelling Skin: Multiple superficial Skin lacerations to arms abdomen and legs, No rash Neuro: No Weakness, No Numbness, No Paresthesias, No Loss of Consciousness, No Dizziness, No Headache Psych: Positive Anxiety/Panic, positive Depression, positive SI Heme/Lymph: no easy bruising, no Lymphadenopathy Endocrine: No Polyuria, No Polydipsia Yes all other systems are reviewed and are negative [facility] Past Medical History Attestation statement: The following information was validated with the patient. Source: old records reviewed Medical History Acute post-traumatic stress disorder Adjustment disorder Anxiety Asthma Borderline personality disorder Chronic post-traumatic stress disorder (PTSD) COPD (chronic obstructive pulmonary disease) Depression GERD (gastroesophageal reflux disease) Increased BMI Injury, self-inflicted Intentional self-harm PTSD (post-traumatic stress disorder) Recurrent major depression-severe Schizoaffective disorder Self-harming behavior Suicidal ideation Suicidal ideation Social History Social History Household Members: Other Household Members Other:: prison Housing: Other Housing Other:: prison Do you presently have visiting nurse or other home services: No Alcohol intake: never Patient Tobacco Use Status: Former Tobacco user Quit Date: 02-19-21 Tobacco use type: Cigarette Cigarette Packs Per Day: 1 Cigarettes Per Day: 20.0 Years Smoked: 17 e-Cigarette/Vaping Use: Never Used Second Hand Smoke Exposure: Yes Substance Use Type: Marijuana Advance Directives: No Advance Directives Information Provided: No service: No Sexual orientation: Don't Know Physical Exam Vital Signs: Vital Signs: Last Vital Signs Pulse 80 05/13/22 20:15 Resp 16 05/13/22 20:15 BP 142/93 H 05/13/22 20:15 Pulse Ox 98 05/13/22 20:15 O2 Del Method 05/13/22 20:15 BMI result Body Mass Index 42.3 Appearance: Alert. Oriented X3. Moderate emotional distress. Eyes: Pupils equal, round and reactive to light. ENT: Pharynx normal. Neck: Normal inspection. Neck supple. CVS: Normal heart rate and rhythm. Pulses normal. Respiratory: No respiratory distress. Breath sounds normal. Abdomen: Soft and nontender. Skin: Numerous superficial skin lacerations to the arms, legs and abdomen, numerous scars throughout body from self-inflicted injuries. Skin warm and dry. Normal skin color. Normal skin turgor. Extremities: No lower extremity edema. Gait well-balanced well coordinated. Neuro: No motor deficit. No sensory deficit. Cranial nerves 2-12 intact. Course Course Course Narrative: 37-year-old female presents via EMS for suicidal ideation, self inflicted injuries behaviors, and states that she wants Bang her head until she dies. Patient is well-known to this facility, has had multiple extraordinarily difficult life experiences, and has recurrent PTSD because of them. Patient is alert oriented x4, is able to articulate her needs, states that she can not control her emotions at this time. Had ECT today and feels that that was not enough to control her at this time. She is requesting benzos at this time. I feel that patient's request is appropriate, will give Ativan 2 mg p.o.. Will order crisis consult. Patient is requesting IM medications, she has been Banging her head against the wall. Order for IM Zyprexa and Haldol. Crisis consult complete, patient states to feel stable enough to be discharged home. Will follow up with outpatient psychiatry as scheduled. Patient verbalized understanding of and agrees to plan of care. Verbalized understanding signs symptoms of a kidney for emergent intervention. Understands contract for safety and knows that she can return any time if she feels that she can not control her emotions and behaviors. MDM - Psych Differential Diagnosis Differential diagnosis: Likely acute psychosis, suicidal ideation, depression and acute anxiety Medical Records Attestation: I reviewed the patient's medical records. Lab Data Attestation: I reviewed the patient's lab results. Labs: Lab Results 05/13/22 05/13/22 05/13/22 Range/Units 19:46 20:18 20:19 Urine Color Yellow Urine Appearance Cloudy Urine pH 6.0 (5.0-9.0) Ur Specific [place] 1.015 (1.005-1.025) Urine Protein 30 (1+) H (Neg-Trace) mg/dL Urine Glucose (UA) Negative (Negative) mg/dL Urine Ketones 40 (Negative) mg/dL Urine Blood Negative (Negative) Urine Nitrite Negative (Negative) Ur Leukocyte Esterase Trace H (Negative) Urine RBC 0-2 (0-2) /HPF Urine WBC 0-5 (0-5) /HPF Ur Squamous Epith Cells 11-20 (0-2) /HPF Urine Bacteria None Seen (None Seen) Hyaline Casts 3-5 (0-2) /LPF Urine Test (NEGATIVE) Urine Opiates Screen Not Detected (Not Detect) Urine Fentanyl Screen POSITIVE H (Not Detect) Ur Barbiturates Screen Not Detected (Not Detect) Ur Phencyclidine Scrn Not Detected (Not Detect) Ur Amphetamines Screen Not Detected (Not Detect) U Benzodiazepines Scrn Not Detected (Not Detect) Urine Cocaine Screen Not Detected (Not Detect) U Marijuana (THC) Screen POSITIVE H (Not Detect) COVID-19 (RAFAL) Negative (Negative) COVID-19 Biodesy See Note 05/13/22 Range/Units 20:19 Urine Color Urine Appearance Urine pH (5.0-9.0) Ur Specific [place] (1.005-1.025) Urine Protein (Neg-Trace) mg/dL Urine Glucose (UA) (Negative) mg/dL Urine Ketones (Negative) mg/dL Urine Blood (Negative) Urine Nitrite (Negative) Ur Leukocyte Esterase (Negative) Urine RBC (0-2) /HPF Urine WBC (0-5) /HPF Ur Squamous Epith Cells (0-2) /HPF Urine Bacteria (None Seen) Hyaline Casts (0-2) /LPF Urine Test NEGATIVE (NEGATIVE) Urine Opiates Screen (Not Detect) Urine Fentanyl Screen (Not Detect) Ur Barbiturates Screen (Not Detect) Ur Phencyclidine Scrn (Not Detect) Ur Amphetamines Screen (Not Detect) U Benzodiazepines Scrn (Not Detect) Urine Cocaine Screen (Not Detect) U Marijuana (THC) Screen (Not Detect) COVID-19 (RAFAL) (Negative) COVID-[employer] | [employer] Discharge Plan Discharge Clinical Impression: Suicidal ideation Patient Disposition: Home, Self-Care Additional Instructions: [facility]. Follow-up with your doctor in 2 days. Please return to the emergency department if your symptoms get worse or if you develop any symptoms that are concerning to you. Prescriptions: No Action omeprazole 20 mg capsule,delayed release(DR/EC) 20 mg PO DAILY fluticasone propion-salmeterol [Advair Diskus] 250-50 mcg/dose blister with device 2 puff inhalation BID duloxetine 60 mg capsule,delayed release(DR/EC) 60 mg PO QAM fluticasone propionate 50 mcg/actuation spray,suspension 2 spray intranasal DAILY nicotine (polacrilex) [Nicorette] 2 mg gum 2 mg buccal Q2H PRN (Reason: Nicotine Cravings) lithium carbonate 300 mg tablet 1 tab PO DAILY benztropine 0.5 mg tablet 1 tab PO BID haloperidol 5 mg tablet 1 tab PO TID diphenhydramine HCl [Banophen] 50 mg capsule 2 cap PO BEDTIME trazodone 50 mg tablet 2 tab PO BEDTIME PRN (Reason: Insomnia) cetirizine 10 mg tablet 1 tab PO DAILY prazosin 1 mg capsule 1 cap PO BEDTIME hydroxyzine pamoate 50 mg capsule 1 cap PO BID PRN (Reason: anxiety) topiramate 25 mg tablet 1 tab PO BID prazosin 5 mg capsule 3 cap PO BEDTIME lorazepam 1 mg tablet 1 tab PO TID PRN (Reason: anxiety) ferrous sulfate 325 mg (65 mg iron) tablet,delayed release (DR/EC) 1 tab PO DAILY albuterol sulfate 2.5 mg /3 mL (0.083 %) Solution For Nebulization 2.5 mg INHALATION Q4H PRN (Reason: Shortness Of Breath) acetaminophen 500 mg Tablet 500 mg PO Q6H PRN (Reason: Pain (Scale Score 1-3)) haloperidol decanoate 50 mg/mL Solution 75 mg IM Q28D@1300 28 Days Qty: 1.5 0RF zolpidem 5 mg tablet 1 tab PO BEDTIME PRN (Reason: Insomnia) Interventions: ED Discharge Assessment Last Done: 05/13/22 20:58 Discharge Date/Time: 05/13/22 21:12"
[2022-05-13 17:53] VITALS: BP 134/74; BP 165/110; PULSE 86; RESP 16; O2SAT 97; O2SAT 99; BMI 42.3
--- OUTSIDE RECORDS SUMMARY | 2022-05-13 18:04 | XMS_ITS | Continuity of Care Document ---
:1985 Author Organization [facility] Address [address] [place] [address]- Care Team Providers Name Role Phone Clare Whelan MD Primary Care Physician [place] [facility] [place] - 08/30/[address] [address]- [facility] Encounter Diagnosis Pain due to vascular device (Final) - 08/30/19 Discharge Disposition: A-D/C Home Attending Physician: Gaetano Latham MD Admitting Physician: Gaetano Latham MD Referring Physician: Not on Staff, Referring MD Allergies, Adverse Reactions, Alerts Substance Reaction Severity Status Tegretol Active Topamax Active Immunizations Given and Recorded Vaccine Date Status Refusal Reason tetanus/diphtheria/pertussis, acel(Tdap) 11/02/09 Given pneumococcal 23-valent vaccine 05/11/09 Given Diphth-Tetanus Toxoids Adsorbed(oldterm) 04/15/05 Given Medications albuterol CFC free 90 mcg/inh inhalation aerosol 180 mcg, 2, puffs, Inhalation, Every 4 hours, PRN, # 1 each, Refills 0, Tot. Refills 0, Maintenance,05/06/18 9:35:11 EDT, Inhaler, Route to Pharmacy Electronically, [id number], [facility] [place] Start Date: 05/06/18 Status: OrderedAmbien CR 12.5 mg oral tablet, extended release 1 tablet = 12.5 mg, By Mouth, Daily at bedtime, PRN as needed for sleep, 0 Refills, Maintenance, 12/02/18 7:09:23 EDT, ER Tablet Start Date: 12/02/18 Status: OrderedAtivan 1 mg oral tablet 1 tablet = 1 mg, By Mouth, 3 times a day, PRN for anxiety, AT LEAST 4HRS APART, 0 Refills, Maintenance, 06/09/19 8:00:50 EDT, Tablet Start Date: 06/09/19 Status: Orderedbenztropine 1 mg oral tablet 1 mg, 1, tablet, By Mouth, 2 times a day, # 180 tablet, Refills 0, Maintenance, 06/09/19 7:59:15 EDT Start Date: 06/09/19 Status: Orderedcetirizine 10 mg oral tablet 1 tablet = 10 mg, By Mouth, Daily, # 90 tablet, 0 Refills, Maintenance, 11/11/18 6:55:32 EDT, Tablet Start Date: 11/11/18 Status: OrderedcloNIDine 0.2 mg oral tablet 0.2 mg, 1, tablet, By Mouth, Daily at bedtime, PRN, Refills 0, Maintenance, Sleep, 06/09/19 7:55:30 EDT Start Date: 06/09/19 Status: OrdereddiphenhydrAMINE 25 mg oral tablet 2 tablet = 50 mg, By Mouth, Daily at bedtime, PRN for insomnia, # 30 tablet, 0 Refills, Maintenance,11/11/18 6:56:18 EDT, Tablet Start Date: 11/11/18 Status: Ordereddocusate sodium 100 mg oral capsule 100 mg, 1, capsule, By Mouth, 2 times a day, # 60 capsule, Refills 0, Tot. Refills 0, Maintenance, 11/10/17 14:47:45 EDT, Route to Pharmacy Electronically, [id number], [facility] [place] Start Date: 11/10/17 Status: Ordereddoxycycline hyclate 100 mg oral tablet 1 tablet = 100 mg, By Mouth, 2 times a day, # 20 tablet, 0 Refills, Soft Stop, 08/01/19 1:59:14 EST,Tablet, 150, cm, 07/31/19 23:52:17 EST, Height, 99.8, kg, 07/31/19 23:52:17 EST, Dry Weight Start Date: 08/01/19 Stop Date: 08/11/19 Status: Orderedfluticasone 50 mcg/inh inhalation powder 2 puffs, Inhalation, Daily, # 120 each, 0 Refills, Maintenance, 11/11/18 6:56:51 EDT, Powder Start Date: 11/11/18 Status: Orderedgabapentin 300 mg oral capsule 600 mg, 2, capsule, By Mouth, 2 times a day, Refills 0, Maintenance, 06/09/19 7:56:34 EDT Start Date: 06/09/19 Status: Orderedhaloperidol 5 mg oral tablet 5 mg, 1, tablet, By Mouth, 2 times a day, PRN, # 60 tablet, Refills 0, Maintenance, Agitation, 06/09/19 7:57:25 EDT Start Date: 06/09/19 Status: Orderedhaloperidol decanoate 100 mg/ml injectable solution = 100 mg, Intramuscular, Every 30 days, 0 Refills, Maintenance, 11/11/18 6:54:15 EDT, Solution Start Date: 11/11/18 Status: OrderedImodium A-D 2 mg oral tablet 2 mg, 1, tablet, By Mouth, Every 4 hours, PRN, Up to 4 times daily, # 12 tablet, Refills 0, Tot. Refills 0, Maintenance, for loose stool, 01/28/19 14:51:27 EDT, Print Requisition Start Date: 01/28/19 Status: Orderedomeprazole 20 mg oral enteric coated capsule 2 capsule = 40 mg, By Mouth, Daily, before a meal, 0 Refills, Maintenance, 11/11/18 6:57:43 EDT, EC Capsule Start Date: 11/11/18 Status: OrderedPercocet-5/325 325 mg-5 mg oral tablet 1, tablet, By Mouth, Every 4 hours, PRN, Refills 0, Tot. Refills 0, Maintenance, for pain, 08/08/19 18:16:00 EST, Tablet, Partial fill upon patient request Start Date: 08/08/19 Status: OrderedSEROquel 200 mg oral tablet 2 tablets, By Mouth, Daily at bedtime, PRN, Refills 0, Maintenance, Sleep, 11/11/18 6:53:26 EDT Start Date: 11/11/18 Status: Orderedsulindac 200 mg oral tablet 1 tablet = 200 mg, By Mouth, 2 times a day, # 180 tablet, 0 Refills, Maintenance, 06/09/19 7:59:47 EDT, Tablet Start Date: 06/09/19 Status: Orderedvenlafaxine 150 mg oral capsule, extended release 150 mg, 1, capsule, By Mouth, Daily, # 30 capsule, Refills 0, Maintenance, 06/09/19 8:00:29 EDT Start Date: 06/09/19 Status: OrderedZofran 4 mg oral tablet 1 tablet = 4 mg, By Mouth, Every 8 hours, PRN as needed for nausea/vomiting, # 12 tablet, 0 Refills,Maintenance, 01/30/19 21:07:05 EDT, Tablet Start Date: 01/30/19 Status: Ordered Problem List Condition Effective Dates Status Health Status Informant Asthma(Confirmed) Active Bipolar disorder(Confirmed) Active Cannabis abuse(Confirmed) Active Genital herpes simplex(Confirmed) Active Tobacco dependence syndrome(Confirmed) Active Vital Signs Most recent to oldest 1 2 3 [Reference Range]: Oxygen Saturation [94-100 %] 100 % 100 % 99 % (08/30/19 5:30 AM) (08/30/19 3:51 AM) (08/30/19 1:3 4 AM) Pulse Rate [55-90 bpm] 78 bpm 86 bpm 81 bpm (08/30/19 5:30 AM) (08/30/19 3:51 AM) (08/30/19 1:3 4 AM) Blood Pressure [90-138/55-84 102/53 mm Hg 141/81 mm Hg 107 /68 mm Hg mm Hg] (08/30/19 5:30 AM) *H* (08/30/19 1:34 AM) (08/30/19 3:51 AM) Respiratory Rate [16-30 18 br/min 18 br/min 18 br/mi n br/min] (08/30/19 5:30 AM) (08/30/19 3:51 AM) (08/30/19 1:3 4 AM) Temperature [96.8-100.4 DegF] 97.5 DegF 97.7 DegF 98 .4 DegF (08/30/19 5:30 AM) (08/30/19 3:51 AM) (08/30/19 1:3 4 AM) Mode of Delivery (Oxygen) Room air Room air Room a ir (08/30/19 5:30 AM) (1/15/20 3:51 AM) (08/30/19 1:3 4 AM) Blood pressure sites Arm, right Arm, right Arm, left (08/30/19 5:30 AM) (08/30/19 1:34 AM) (08/29/19 11: 34 PM) Temperature Route Oral Oral Oral (08/30/19 5:30 AM) (08/30/19 3:51 AM) (08/30/19 1:3 4 AM) Social History Social History Type Response Smoking Status 5-9 cigarettes (between 1/4 to 1/2 pack)/day in last 30 days entered on: 08/04/19 Sex
--- OUTSIDE RECORDS SUMMARY | 2022-05-13 18:04 | XMS_ITS | Continuity of Care Document ---
:1985 Author Organization [facility] Address [address] [place] [address]- Care Team Providers Name Role Phone Cleopatra LEUNG, Clare Llanes Primary Care Physician Encounter [facility] Date(s): 07/11/19 - 08/31/[address] [address]- [facility] Attending Physician: Balbir Peace MD Admitting Physician: Balbir Peace MD Referring Physician: Balbir Peace MD Allergies, Adverse Reactions, Alerts Substance Reaction [...] 9:35:11 EDT, Inhaler, Route to Pharmacy Electronically, [id number], [facility] [place] Start Date: [...] 11/10/17 14:47:45 EDT, Route to Pharmacy Electronically, [id number], [facility] [place] Start Date: [...] herpes simplex(Confirmed) Active Tobacco dependence syndrome(Confirmed) Active Social History Social History Type Response Smoking Status 5-9 cigarettes (between 1/4 to 1/2 pack)/day in last 30 days entered on: 08/04/19 Sex
--- OUTSIDE RECORDS SUMMARY | 2022-05-13 18:04 | XMS_ITS | Continuity of Care Document ---
:1985 Author Organization [facility] Address [address] [place] [address]- Care Team Providers Name Role Phone Cleopatra LEUNG, Clare Llanes Primary Care Physician [place] [facility] [place] 06/27/19 - 07/28/[address] [address]- [facility] Attending Physician: Balbir Peace MD Admitting [...] 9:35:11 EDT, Inhaler, Route to Pharmacy Electronically, [id number], [facility] [place] Start Date: [...] 11/10/17 14:47:45 EDT, Route to Pharmacy Electronically, [id number], [facility] [place] Start Date: 11/10/17 Status: Orderedfluticasone 50 mcg/inh inhalation powder 2 [...] EDT, EC Capsule Start Date: 11/11/18 Status: OrderedSEROquel 200 mg oral tablet 2 [...] History Social History Type Response Smoking Status 10 or more cigarettes (1/2 p ack or more)/day in last 30 days entered on: 12/26/18 Sex
--- OUTSIDE RECORDS SUMMARY | 2022-05-13 18:04 | XMS_ITS | Continuity of Care Document ---
:1985 Author Organization [facility] Address [address] [place] [address]- Care Team Providers Name Role Phone Cleopatra LEUNG, Clare Llanes Primary Care Physician Encounter [facility] [place] Date(s): 08/23/19 - 08/23/[address] [address]- [facility] Discharge Disposition: A-D/C Home Attending Physician: Oracio Nolasco MD Admitting Physician: Oracio Nolasco MD Referring Physician: Oracio Nolasco MD Allergies, Adverse Reactions, Alerts Substance Reaction [...] 9:35:11 EDT, Inhaler, Route to Pharmacy Electronically, [id number], [facility] [place] Start [...] 11/10/17 14:47:45 EDT, Route to Pharmacy Electronically, [id number], [facility] [place] Start [...] Active Vital Signs Most recent to oldest [Reference Range]: 1 Oxygen Saturation [94-100 %] 98 % (08/23/19 7:15 AM) Pulse Rate [55-90 bpm] 75 bpm (08/23/19 7:15 AM) Blood Pressure [90-138/55-84 mm Hg] 112/70 mm Hg (08/23/19 7:15 AM) Respiratory Rate [16-30 br/min] 20 br/min (08/23/19 7:15 AM) Temperature [96.8-100.4 DegF] 97.8 DegF (08/23/19 7:15 AM) Mode of Delivery (Oxygen) Room air (08/23/19 7:15 AM) Blood pressure sites Arm, right (08/23/19 7:15 AM) Temperature Route Oral (08/23/19 7:15 AM) Social History Social History Type Response Smoking Status 5-9 cigarettes (between 1/4 to 1/2 pack)/day in last 30 days entered on: 08/04/19 Sex
--- OUTSIDE RECORDS SUMMARY | 2022-05-13 18:04 | XMS_ITS | Continuity of Care Document ---
:1985 Author Organization [facility] Address [address] [place] [address]- Care Team Providers Name Role Phone Cleopatra LEUNG, Clare Llanes Primary Care Physician Encounter [facility] Date(s): 08/07/19 - 08/07/[address] [address]- [facility] Discharge Disposition: A-D/C Home Attending Physician: Jamaal Aleman MD Admitting Physician: Jamaal Aleman MD Referring Physician: Jamaal Aleman MD Allergies, Adverse Reactions, Alerts Substance Reaction [...] 9:35:11 EDT, Inhaler, Route to Pharmacy Electronically, [id number], [facility] [place] [...] 11/10/17 14:47:45 EDT, Route to Pharmacy Electronically, [id number], [facility] [place] [...] EDT, Print Requisition Start Date: 01/28/19 Status: OrderedNorco 325 mg-5 mg oral tablet 1 tablet, By Mouth, Every 4 hours, PRN for pain, partial fill at patient request, # 10 tablet, 0 Refills, Maintenance, 08/01/19 1:59:34 EST, Tablet, Partial fill upon patient request, 150, cm, 07/31/1923:52:17 EST, Height, 99.8, kg, 07/31/19 23:52:17... Start Date: 08/01/19 Status: Orderedomeprazole 20 mg oral enteric coated [...] Most recent to oldest [Reference Range]: 1 Height 150 cm (08/07/19 7:52 AM) Weight 101 kg (08/07/19 7:52 AM) Oxygen Saturation [94-100 %] 98 % (08/07/19 7:34 AM) Pulse Rate [55-90 bpm] 74 bpm (08/07/19 7:34 AM) Blood Pressure [90-138/55-84 mm Hg] 123/86 mm Hg (08/07/19 7:34 AM) Temperature [96.8-100.4 DegF] 97.7 DegF (08/07/19 7:34 AM) Mode of Delivery (Oxygen) Room air (08/07/19 7:34 AM) Temperature Route Oral (08/07/19 7:34 AM) Dry Weight 101 kg (08/07/19 7:52 AM) Social History Social History Type Response Smoking Status 5-9 cigarettes (between 1/4 to 1/2 pack)/day in last 30 days entered on: 08/04/19 Sex
--- OUTSIDE RECORDS SUMMARY | 2022-05-13 18:04 | XMS_ITS | Continuity of Care Document ---
:1985 Author Organization [facility] Address [address] [place] [address]- Care Team Providers Name Role Phone Janet Brown MD Primary Care Physician [place] [facility] [place]20 - 10/30/[address] [address]- Discharge Disposition: A-D/C Home Attending Physician: Sydnie Moses MD Admitting Physician: Sydnie Moses MD Referring Physician: Not on Staff, Referring MD Allergies, Adverse Reactions, Alerts Substance Reaction Severity Status Tegretol Active Topamax Active Immunizations Given and Recorded Vaccine Date Status Refusal Reason tetanus/diphtheria/pertussis, acel(Tdap) 11/02/09 Given pneumococcal 23-valent vaccine 05/11/09 Given Diphth-Tetanus Toxoids Adsorbed(oldterm) 04/15/05 Given Medications Albuterol (Eqv-ProAir HFA) 90 mcg/inh inhalation aerosol 2 puffs, Inhalation, Every 6 hours, # 2 each, 0 Refills, Maintenance, 09/11/20 19:19:00 EST, [facility] [address], Partial fill upon patient request if the prescription is for a schedule II opioid drug., 2 puffs Inhalation Yana... Start Date: 09/11/20 Status: Orderedalbuterol CFC free 90 mcg/inh inhalation aerosol 180 mcg, 2, puffs, Inhalation, Every 4 hours, PRN, # 1 each, Refills 0, Tot. Refills 0, Maintenance,05/06/18 9:35:11 EDT, Inhaler, Route to Pharmacy Electronically, [id number], [facility] [address] [place] [address] Start Date: 05/06/18 Status: OrderedAmbien CR 12.5 [...] EDT, Tablet Start Date: 11/11/18 Status: OrderedcloNIDine 0.1 mg oral tablet 0.1 mg, 1, tablet, By Mouth, 2 times a day, # 60 tablet, Refills 0, Maintenance, 11/23/19 20:45:00 EDT Start Date: 11/23/19 Status: OrderedcloNIDine 0.2 mg oral tablet 0.2 [...] 11/10/17 14:47:45 EDT, Route to Pharmacy Electronically, [id number], [facility] [place] Start Date: 11/10/17 Status: Orderedgabapentin 300 mg oral capsule 600 [...] 6:54:15 EDT, Solution Start Date: 11/11/18 Status: Orderedibuprofen 600 mg oral tablet 600 mg, 1, tablet, By Mouth, 4 times a day, PRN, with food or milk, # 30 tablet, Refills 0, Tot. Refills 0, Maintenance, Pain , Severe, 06/11/20 22:33:00 EDT, Route to Pharmacy Electronically, [facility] - [place], [place], 150, cm, 10... Start Date: 06/11/20 Status: Orderedomeprazole 20 mg oral enteric coated capsule 2 capsule = 40 mg, By Mouth, Daily, before a meal, 0 Refills, Maintenance, 11/11/18 6:57:43 EDT, EC Capsule Start Date: 11/11/18 Status: Orderedsulindac 200 mg oral tablet 1 tablet = 200 mg, By Mouth, 2 times a day, # 180 tablet, 0 Refills, Maintenance, 06/09/19 7:59:47 EDT, Tablet Start Date: 06/09/19 Status: Ordered Problem List Condition Effective Dates Status Health Status Informant Asthma(Confirmed) Active Bipolar disorder(Confirmed) Active Cannabis abuse(Confirmed) Active Genital herpes simplex(Confirmed) Active Tobacco dependence syndrome(Confirmed) Active Results Orders for Microbiology Reports Name Date Wet Prep 10/30/20 Microbiology Reports TEST:Wet Prep STATUS:Auth (Verified) BODY SITE: SOURCE:VAGINA COLLECTED DATE/TIME:10/30/20 1:51 PMWet Prep SPECIMEN DESCRIPTION : VAGINAL SPECIMEN SPECIAL REQUESTS : NONE DIRECT EXAM : NO TRICHOMONAS,YEAST,OR CLUE CELLS OBSERVED NO WBC'S SEEN REPORT STATUS : FINAL 10/30/2020 Vital Signs Most recent to oldest 1 2 3 [Reference Range]: Height 150 cm 150 cm (10/30/20 4:02 PM) (10/30/20 11:30 AM) Weight 119.3 kg 119.3 kg (10/30/20 4:02 PM) (10/30/20 11:30 AM) Oxygen Saturation [94-100 %] 100 % 100 % 100 % (10/30/20 4:02 PM) (10/30/20 11:30 AM) (10/30/20 11 :21 AM) Pulse Rate [55-90 bpm] 93 bpm 112 bpm 120 bpm *H* *H* *H* (10/30/20 4:02 PM) (10/30/20 11:30 AM) (10/30/20 11 :21 AM) Body Mass Index [18.5-24.99] 53.02 53.02 *>HHI* *>HHI* (10/30/20 4:02 PM) (10/30/20 11:30 AM) Blood Pressure [90-138/55-84 135/93 mm Hg 130/80 mm Hg mm Hg] (10/30/20 4:02 PM) (10/30/20 11:30 AM) Respiratory Rate [16-30 18 br/min 18 br/min br/min] (10/30/20 4:02 PM) (10/30/20 11:30 AM) Temperature [96.8-100.4 98.7 DegF 98.7 DegF DegF] (10/30/20 4:02 PM) (10/30/20 11:30 AM) Mode of Delivery (Oxygen) Room air Room air (10/30/20 4:02 PM) (10/30/20 11:30 AM) Blood pressure sites Arm, left Arm, right (10/30/20 4:02 PM) (10/30/20 11:30 AM) Temperature Route Oral Oral (10/30/20 4:02 PM) (10/30/20 11:30 AM) Dry Weight 119.3 kg 119.3 kg (10/30/20 4:02 PM) (10/30/20 11:30 AM) Weight Obtained Via Standing scale (10/30/20 11:30 AM) Dry Weight Obtained Via Standing scale (10/30/20 11:30 AM) Social History Social History Type Response Smoking Status 10 or more cigarettes (1/2 p ack or more)/day in last 30 days entered on: 06/11/20 Sex
--- OUTSIDE RECORDS SUMMARY | 2022-05-13 18:04 | XMS_ITS | Continuity of Care Document ---
:1985 Author Organization [facility] Address [address] [place] [address]- Care Team Providers Name Role Phone Cleopatra LEUNG, Clare Llanes Primary Care Physician Encounter [facility] Date(s): 07/31/19 - 07/31/[address] [address]- [facility] Discharge Disposition: A-D/C Home Attending Physician: Unique Dudley MD Admitting Physician: Unique Dudley MD Referring Physician: Mohsen Nolasco MD Allergies, Adverse Reactions, Alerts Substance [...] 9:35:11 EDT, Inhaler, Route to Pharmacy Electronically, [id number], [facility] - [place] [...] 11/10/17 14:47:45 EDT, Route to Pharmacy Electronically, [id number], [facility] - [place] [...] recent to oldest [Reference Range]: 1 Height 178 cm (07/31/19 8:52 AM) Weight 100 kg (07/31/19 8:52 AM) Oxygen Saturation [94-100 %] 97 % (07/31/19 8:46 AM) Pulse Rate [55-90 bpm] 97 bpm *H* (07/31/19 8:46 AM) Blood Pressure [90-138/55-84 mm Hg] 115/59 mm Hg (07/31/19 8:46 AM) Respiratory Rate [16-30 br/min] 18 br/min (07/31/19 8:46 AM) Temperature [96.8-100.4 DegF] 97.8 DegF (07/31/19 8:46 AM) Mode of Delivery (Oxygen) Room air (07/31/19 8:46 AM) Blood pressure sites Arm, right (07/31/19 8:46 AM) Temperature Route Oral (07/31/19 8:46 AM) Dry Weight 100 kg (07/31/19 8:52 AM) Social History Social History Type Response Smoking Status 10 or more cigarettes (1/2 p ack or more)/day in last 30 days entered on: 12/26/18 Sex
--- OUTSIDE RECORDS SUMMARY | 2022-05-13 18:04 | XMS_ITS | Continuity of Care Document ---
:1985 Author Organization [facility] Address [address] [place] [address]- Care Team Providers Name Role Phone Janet Brown MD Primary Care Physician Encounter [facility] [place] Date(s): 02/08/21 - 02/08/[address] [address]- Discharge Disposition: A-D/C Walkout Attending Physician: Not on Staff, Attending MD Admitting Physician: Not on Staff, Admitting MD Referring Physician: Not on Staff, Referring [...] each, 0 Refills, Maintenance, 09/11/20 19:19:00 EST, [facility] [address], Partial fill upon patient request if the prescription is for a schedule II opioid drug., 2 puffs Inhalation Yana... Start Date: 09/11/20 Status: Orderedalbuterol CFC free 90 mcg/inh inhalation aerosol 180 mcg, 2, puffs, Inhalation, Every 4 hours, PRN, # 1 each, Refills 0, Tot. Refills 0, Maintenance,05/06/18 9:35:11 EDT, Inhaler, Route to Pharmacy Electronically, [id number], [facility] [address] [place] [address] Start Date: 05/06/18 Status: OrderedAmbien CR 12.5 [...] 11/10/17 14:47:45 EDT, Route to Pharmacy Electronically, [id number], [facility] - [place] [...] 06/11/20 22:33:00 EDT, Route to Pharmacy Electronically, [facility] #[facility] - [place], [place], 150, cm, 10... Start Date: 06/11/20 Status: [...] Most recent to oldest [Reference Range]: 1 2 Oxygen Saturation [94-100 %] 100 % 100 % (02/08/21 7:20 PM) (02/08/21 5:14 PM) Pulse Rate [55-90 bpm] 85 bpm 82 bpm (02/08/21 7:20 PM) (02/08/21 5:14 PM) Blood Pressure [90-138/55-84 mm Hg] 133/80 mm Hg 136/ 93 mm Hg (02/08/21 7:20 PM) (02/08/21 5:14 PM) Respiratory Rate [16-30 br/min] 18 br/min 17 br/mi n (02/08/21 7:20 PM) (02/08/21 5:14 PM) Temperature [96.8-100.4 DegF] 97.8 DegF 98.8 DegF (02/08/21 7:20 PM) (02/08/21 5:14 PM) Mode of Delivery (Oxygen) Room air Room air (02/08/21 7:20 PM) (02/08/21 5:14 PM) Blood pressure sites Arm, left (02/08/21 7:20 PM) Temperature Route Oral Oral (02/08/21 7:20 PM) (02/08/21 5:14 PM) Social History Social History Type Response Smoking Status 10 or more cigarettes (1/2 p ack or more)/day in last 30 days entered on: 06/11/20 Sex
[2022-05-13] MEDS: LORazepam 1 MG TABLET 2 MG PO (18:05)
--- OUTSIDE RECORDS SUMMARY | 2022-05-13 18:05 | XMS_ITS | Continuity of Care Document ---
:1985 Author Organization [facility] Address [address] [place] [address]- Care Team Providers Name Role Phone Cleopatra LEUNG, Clare Llanes Primary Care Physician Encounter [facility] [place] Date(s): 08/27/19 - 08/28/[address] [address]- [facility] Encounter Diagnosis Infected venous access port (Final) - 08/27/19 Discharge Disposition: A-D/C Home Attending Physician: Sofy Tariq DO Admitting Physician: Cristal Mason MD Referring Physician: Not on Staff, Referring [...] 9:35:11 EDT, Inhaler, Route to Pharmacy Electronically, [id number], [facility] - [place] Start [...] 11/10/17 14:47:45 EDT, Route to Pharmacy Electronically, [id number], [facility] - [place] Start [...] Results Orders for Microbiology Reports Name Date Blood Culture 08/27/19 Microbiology Reports TEST:Blood Culture STATUS:Unauthenticated BODY SITE: SOURCE:Blood COLLECTED DATE/TIME:08/27/19 10:16 PMBlood Culture SPECIMEN DESCRIPTION : BLOOD LAC SPECIAL REQUESTS : NONE CULTURE : NO GROWTH AFTER 24 HOURS REPORT STATUS : PRELIMINARY REPORT Radiology Reports Exam Date Time Procedure Performing Provider Status 08/27/19 10:35 PM Chest Single Frontal View Zainab Juan; Auth (Verified) Notes:(Chest Single Frontal View) Reason For Exam: Port Placement;Other:RESULT: Chest Single Frontal View Chest Single Frontal View Reason: Port Placement; Clinical Question(s): Confirm Position, COMPARISON: 08/01/2019 FINDINGS: LINES AND TUBES: Interval placement of a left-sided Port-A-Cath with the catheter tip in the SVC. LUNGS AND PLEURA: Clear lungs. Normal pulmonary vascularity. No pleural effusion. No pneumothorax. HEART, MEDIASTINUM AND ADDI: Heart is normal in size. Normal mediastinal and hilar contour. BONES AND SOFT TISSUES: No acute abnormality. IMPRESSION: Left-sided Port-A-Cath without apparent complication. WSN: [id number] Dictated By: Tod Gomez MD Dictated Date/Time: 08/27/19 10:37 p Reviewed By: Tod Gomez MD Signed By: Tod Gomez MD Signed Date/Time: 08/27/19 10:37 pm Transcribed By: SANDEE Transcribed Date/Time: 08/27/19 10:36 pm Vital Signs Most recent to oldest 1 2 3 [Reference Range]: Oxygen Saturation [94-100 %] 100 % 100 % 99 % (08/28/19 12:11 PM) (08/28/19 8:17 AM) (08/28/19 6: 07 AM) Pulse Rate [55-90 bpm] 82 bpm 64 bpm 73 bpm (08/28/19 12:11 PM) (08/28/19 8:17 AM) (08/28/19 6: 07 AM) Blood Pressure [90-138/55-84 126/63 mm Hg 115/76 mm Hg 103 /67 mm Hg mm Hg] (08/28/19 12:11 PM) (08/28/19 8:17 AM) (08/28/19 6: 07 AM) Respiratory Rate [16-30 12 br/min 15 br/min 17 br/mi n br/min] *L* *L* (08/28/19 9:39 AM ) (08/28/19 12:11 PM) (08/28/19 10:39 AM) Temperature [96.8-100.4 DegF] 97.7 DegF 98 DegF 98 .2 DegF (08/28/19 12:11 PM) (08/28/19 8:17 AM) (08/28/19 6: 07 AM) Mode of Delivery (Oxygen) Room air Room air Room a ir (08/28/19 12:11 PM) (08/28/19 8:17 AM) (08/28/19 6: 07 AM) Blood pressure sites Arm, left Arm, left Arm, left (08/28/19 12:11 PM) (08/28/19 8:17 AM) (08/28/19 6: 07 AM) Temperature Route Oral Oral Oral (08/28/19 12:11 PM) (08/28/19 8:17 AM) (08/28/19 6: 07 AM) Social History Social History Type Response Smoking Status 5-9 cigarettes (between 1/4 to 1/2 pack)/day in last 30 days entered on: 08/04/19 Sex
--- OUTSIDE RECORDS SUMMARY | 2022-05-13 18:05 | XMS_ITS | Continuity of Care Document ---
:1985 Author Organization [facility] Address [address] [place] [address]- Care Team Providers Name Role Phone Clare Whelan MD Primary Care Physician Encounter [facility] Date(s): 07/28/19 - 07/28/[address] [address]- [facility] Encounter Diagnosis Other complication due to venous access device (Final) - 07/28/19 Discharge Disposition: A-D/C Home Attending Physician: Amelie Luna MD Admitting Physician: Amelie Luna MD Referring Physician: Not on Staff, Referring [...] 9:35:11 EDT, Inhaler, Route to Pharmacy Electronically, [id number], [facility] - [place] [...] 11/10/17 14:47:45 EDT, Route to Pharmacy Electronically, [id number], [facility] #[facility] - [place] [...] simplex(Confirmed) Active Tobacco dependence syndrome(Confirmed) Active Results Radiology Reports Exam Date Time Procedure Performing Provider Status 07/28/19 12:47 PM Chest Portable Hortenciakathyblaine Lola; Caleb (Verified ) Notes:(Chest Portable) Reason For Exam: Line/Tube Placement;Other:RESULT: Chest Portable Chest Portable INDICATION: Status post line placement. COMPARISON: Multiple priors, most recent 10/30/2018. FINDINGS: LINES AND TUBES: Interval placement of a single lumen implanted right-sided IJ central venous catheter is identified with its tip overlying the upper SVC. LUNGS AND PLEURA: Clear lungs. Normal pulmonary vascularity. No pleural effusion. No pneumothorax. HEART, MEDIASTINUM AND ADDI: Heart is normal in size. Normal mediastinal and hilar contour. BONES AND SOFT TISSUES: No acute abnormality. IMPRESSION: No acute abnormality. WSN: [id number] Dictated By: Trever Cerda MD Dictated Date/Time: 07/28/19 1:24 pm Reviewed By: Trever Cerda MD Signed By: Trever Cerda MD Signed Date/Time: 07/28/19 1:24 pm Transcribed By: SANDEE Transcribed Date/Time: 07/28/19 12:49 pm Vital Signs Most recent to oldest 1 2 3 [Reference Range]: Weight 99.5 kg 99.5 kg 99.5 kg (07/28/19 6:37 PM) (07/28/19 3:00 PM) (07/28/19 1:31 PM) Oxygen Saturation [94-100 100 % 100 % 99 % %] (07/28/19 6:37 PM) (07/28/19 3:00 PM) (07/28/19 12:38 PM) Pulse Rate [55-90 bpm] 95 bpm 87 bpm 84 bpm *H* (07/28/19 3:00 PM) (07/28/19 1:3 1 PM) (07/28/19 6:37 PM) Blood Pressure 143/57 mm Hg 113/70 mm Hg 102/77 mm Hg [90-138/55-84 mm Hg] *H* (07/28/19 3:00 PM) ( 9 12:38 PM) (07/28/19 6:37 PM) Respiratory Rate [16-30 18 br/min 16 br/min 23 br/mi n br/min] (07/28/19 6:37 PM) (07/28/19 3:00 PM) (07/28/19 12:38 PM) Temperature [96.8-100.4 98.7 DegF 97.9 DegF 97.7 Deg F DegF] (07/28/19 6:37 PM) (07/28/19 3:00 PM) (07/28/19 12:38 PM) Liters per Minute 0 L/min (07/28/19 11:21 AM) Mode of Delivery (Oxygen) Room air Room air Room a ir (07/28/19 6:37 PM) (07/28/19 3:00 PM) (07/28/19 12:38 PM) Blood pressure sites Arm, right Arm, left Arm, right (07/28/19 6:37 PM) (07/28/19 3:00 PM) (07/28/19 12:38 PM) Temperature Route Oral Oral Oral (07/28/19 6:37 PM) (07/28/19 3:00 PM) (07/28/19 12:38 PM) Dry Weight 99.5 kg 99.5 kg 99.5 kg (07/28/19 6:37 PM) (07/28/19 3:00 PM) (07/28/19 1:31 PM) Weight Obtained Via Standing scale (07/28/19 11:21 AM) Dry Weight Obtained Via Standing scale (07/28/19 11:21 AM) Social History Social History Type Response Smoking Status 10 or more cigarettes (1/2 p ack or more)/day in last 30 days entered on: 12/26/18 Sex
--- OUTSIDE RECORDS SUMMARY | 2022-05-13 18:05 | XMS_ITS | Continuity of Care Document ---
:1985 Author Organization [facility] Address [address] [place] [address]- Care Team Providers Name Role Phone Clare Whelan MD Primary Care Physician Encounter [facility] [place] Date(s): 11/29/19 - 11/30/[address] [address]- [facility] Encounter Diagnosis Acute anxiety (Final) - 11/29/19 Discharge Disposition: A-D/C Home Attending Physician: Jonnie Sky DO Admitting Physician: Jonnie Sky DO Referring Physician: Not on Staff, Referring MD [...] 9:35:11 EDT, Inhaler, Route to Pharmacy Electronically, [id number], [facility] [place] Start Date: 05/06/18 Status: OrderedAmbien 5 mg oral tablet 1 tablet = 5 mg, By Mouth, Daily at bedtime, PRN as needed for insomnia, # 5 tablet, 0 Refills, Acute 12/04/19 23:50:00 EDT, 11/29/19 23:50:00 EDT, Tablet, [facility] [place], 150, cm,11/23/19 20:31:00 EDT, Height, 88, kg, 11/23/19 2... Start Date: 11/29/19 Stop Date: 12/04/19 Status: OrderedAmbien CR 12.5 mg oral tablet, [...] 06/09/19 7:55:30 EDT Start Date: 06/09/19 Status: OrderedCyclobenzaprine By Mouth, Daily at bedtime, PRN as needed for muscle spasm, 0 Refills, Maintenance, 11/23/19 20:50:00 EDT Start Date: 11/23/19 Status: OrdereddiphenhydrAMINE 25 mg oral tablet 2 [...] 11/10/17 14:47:45 EDT, Route to Pharmacy Electronically, [id number], [facility] [...] 6:54:15 EDT, Solution Start Date: 11/11/18 Status: Orderedomeprazole 20 mg oral enteric coated capsule 2 capsule = 40 mg, By Mouth, Daily, before a meal, 0 Refills, Maintenance, 11/11/18 6:57:43 EDT, EC Capsule Start Date: 11/11/18 Status: OrderedSEROquel 200 mg oral tablet 2 tablets, By Mouth, Daily at bedtime, PRN, Refills 0, Maintenance, Sleep, 11/11/18 6:53:26 EDT Start Date: 11/11/18 Status: OrderedSEROquel 400 mg oral tablet 1 tablet = 400 mg, By Mouth, 2 times a day, # 60 tablet, 0 Refills, Maintenance, 11/29/19 23:50:00 EDT, Tablet, [facility] [place], 150, cm, 11/23/19 20:31:00 EDT, Height, 88, kg, 11/23/19 20:31:00 EDT, Dry Weight Start Date: 11/29/19 Stop Date: 12/29/19 Status: Orderedsulindac 200 mg oral tablet 1 tablet = 200 mg, By Mouth, 2 times a day, # 180 tablet, 0 Refills, Maintenance, 06/09/19 7:59:47 EDT, Tablet Start Date: 06/09/19 Status: Orderedvenlafaxine 150 mg oral capsule, extended release 150 mg, 1, capsule, By Mouth, Daily, # 30 capsule, Refills 0, Maintenance, 06/09/19 8:00:29 EDT Start Date: 06/09/19 Status: Ordered Problem List Condition Effective Dates Status Health Status Informant Asthma(Confirmed) Active Bipolar disorder(Confirmed) Active Cannabis abuse(Confirmed) Active Genital herpes simplex(Confirmed) Active Tobacco dependence syndrome(Confirmed) Active Results Radiology Reports Exam Date Time Procedure Performing Provider Status 11/29/19 10:21 PM Chest 2 Views Frontal and Lat Arlen Walter; Caleb (Verified) Notes:(Chest 2 Views Frontal and Lat) Reason For Exam: not pui;AnginaRESULT: Chest 2 Views Frontal and Lat Chest 2 Views Frontal and Lat Refer to EMR; Reason: Angina; not pui; Clinical Question(s): CHF; Hx of Present Illness: pt reports anxiety has been going on for multiple days. Was at [facility] 2 days ago for crisis and anxiety. reports being short of breath with hx of asthma, no fevers, poor po intake, and little to nosleep past few days. Denies SI. COMPARISON: 11/23/2019. FINDINGS: LINES AND TUBES: Unchanged left subclavian Port-A-Cath terminating in the mid SVC. LUNGS AND PLEURA: Clear lungs. Normal pulmonary vascularity. No pleural effusion. No pneumothorax. HEART, MEDIASTINUM AND ADDI: Heart is normal in size. Normal mediastinal and hilar contour. BONES AND SOFT TISSUES: Mild multilevel degenerative changes of the spine. No acute abnormality. IMPRESSION: No acute abnormality. Unchanged exam. I have personally reviewed the images and I agree with this report. WSN: [id number] Ordering Physician: Jonnie Sky Dictated By: Brian Rockwell MD Dictated Date/Time: 11/29/19 10:41 p Reviewed By: Chris Grover MD Signed By: Chris Grover MD Signed Date/Time: 11/29/19 10:46 pm Transcribed By: SANDEE Transcribed Date/Time: 11/29/19 10:28 pm Vital Signs Most recent to oldest [Reference Range]: 1 Oxygen Saturation [94-100 %] 98 % (11/29/19 9:33 PM) Blood Pressure [90-138/55-84 mm Hg] 127/76 mm Hg (11/29/19 9:33 PM) Respiratory Rate [16-30 br/min] 15 br/min *L* (11/29/19 9:33 PM) Temperature [96.8-100.4 DegF] 97.9 DegF (11/29/19 9:33 PM) Mode of Delivery (Oxygen) Room air (11/29/19 9:33 PM) Blood pressure sites Arm, left (11/29/19 9:33 PM) Temperature Route Oral (11/29/19 9:33 PM) Social History Social History Type Response Smoking Status 10 or more cigarettes (1/2 p ack or more)/day in last 30 days entered on: 12/26/18 Sex
[2022-05-13] MEDS: OLANZapine 10 MG VIAL IM (18:35)
[2022-05-13] MEDS: Haloperidol Lactate 5 MG/ML VIAL IM (18:35)
[2022-05-13 20:08] LABS: COVID-19 Test Negative (Negative)
[2022-05-13 20:15] VITALS: BP 142/93; PULSE 80; RESP 16; O2SAT 98
[2022-05-13] MEDS: traZODone HCL 100 MG TABLET PO (20:24)
[2022-05-13] MEDS: Ondansetron ODT 4 MG TAB.RAPDIS TRANSLINGU (20:24)
[2022-05-13] MEDS: LORazepam 1 MG TABLET PO (20:24)
[2022-05-13] MEDS: Topiramate 25 MG TABLET PO (20:25)
[2022-05-13] MEDS: Prazosin HCL 1 MG CAPSULE PO (20:25)
[2022-05-13] MEDS: HaloperidoL 5 MG TABLET PO (20:25)
[2022-05-13] MEDS: Benztropine Mesylate 0.5 MG TABLET PO (20:25)
[2022-05-13] MEDS: Zolpidem Tartrate 5 MG TABLET PO (20:26)
[2022-05-13] MEDS: diphenhydrAMINE HCL 25 MG TABLET 100 MG PO (20:26)
[2022-05-13 20:35] LABS: Appearance Urine Cloudy; Color Urine Yellow; Glucose Urine UA Negative (Negative); Leukocyte Esterase Urine Trace (Negative); Nitrite Urine Negative (Negative); Specific Gravity - Urine 1.015 (1.005-1.025); UMIC TRIGGER UA YES; Urine Blood Negative (Negative); Urine Ketones 40 mg/dL (Negative); Urine Protein 30 (1+) mg/dL (Neg-Trace)
[2022-05-13 20:37] LABS: UPreg QC Valid YES; Urine Pregnancy NEGATIVE (NEGATIVE)
[2022-05-13 20:40] LABS: Bacteria Urine None Seen (None Seen); RBC Urine 0-2 /HPF (0-2); WBC Urine 0-5 /HPF (0-5)
[2022-05-13 20:55] LABS: Amphetamine Screen Urine Not Detected (Not Detect); Barbiturates, Urine Not Detected (Not Detect); Benzodiazepines Screen Urine Not Detected (Not Detect); Cannabinoid Screen Urine POSITIVE (Not Detect); Cocaine Screen Urine Not Detected (Not Detect); Fentanyl, urine POSITIVE (Not Detect); Opiate Screen Urine Not Detected (Not Detect); Phencyclidine Screen Urine Not Detected (Not Detect)
--- NOTE | 2022-05-13 22:55 | MHC.CARE ---
T/w conducted a crisis screening on pt. Staff report that pt arrived in distress, dysregulated and requested an IM. Pt reports feeling better and wishing to return back to her [facility]. Pt appears at her baseline at this time and comfortable with d/c. She request to return home with her second family as she feels safe and wants to be her in own bed. T/w consulted with CARE banquet coordinator Abril Martinez, [facility] and ED Provider Gilma who all are in agreement. Pt will be picked up by her staff.
== END 2022-05-13 21:12 | disposition home or self-care (01) ==
PROVIDERS: Nurse Practitioner Family; Emergency Provider Emergency Medicine Emergency Medical Services
DX: R45.851 Suicidal ideations (principal); F25.0 Schizoaffective disorder, bipolar type; Z20.822 Contact with and (suspected) exposure to COVID-19; F41.9 Anxiety disorder, unspecified; F43.12 Post-traumatic stress disorder, chronic; F60.3 Borderline personality disorder; Z79.899 Other long term (current) drug therapy; F17.210 Nicotine dependence, cigarettes, uncomplicated; F12.90 Cannabis use, unspecified, uncomplicated; E66.9 Obesity, unspecified; Z68.41 Body mass index [BMI] 40.0-44.9, adult
CPT/HCPCS: 80307; 81001; 81025; 87635; 96372; 99283; 99284; Q0163

== ENCOUNTER 2022-05-14 20:20 | Emergency (ER) | payer OTHER, SELFPAY ==
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
[2022-05-14 20:45] VITALS: BP 143/86; PULSE 117; RESP 20; TEMP 37; O2SAT 94; BMI 39.6
[2022-05-14 20:50] VITALS: RESP 20
[2022-05-14] MEDS: Haloperidol Lactate 5 MG/ML VIAL IM (20:50)
[2022-05-14] MEDS: OLANZapine 10 MG VIAL IM (20:50)
[2022-05-14 21:05] VITALS: RESP 20
[2022-05-14 21:10] LABS: Appearance Urine Cloudy; Color Urine Dark Yellow; Glucose Urine UA Negative (Negative); Leukocyte Esterase Urine Negative (Negative); Nitrite Urine Negative (Negative); PH 5.5 (5.0-9.0); Specific Gravity - Urine 1.025 (1.005-1.025); Urine Blood Negative (Negative); Urine Ketones 40 mg/dL (Negative); Urine Protein Negative (Neg-Trace)
[2022-05-14 21:11] LABS: UPreg QC Valid YES; Urine Pregnancy NEGATIVE (NEGATIVE)
[2022-05-14 21:20] VITALS: RESP 19
[2022-05-14 21:23] LABS: COVID-19 Test Negative (Negative)
[2022-05-14 21:27] LABS: Amphetamine Screen Urine Not Detected (Not Detect); Barbiturates, Urine Not Detected (Not Detect); Benzodiazepines Screen Urine Not Detected (Not Detect); Cannabinoid Screen Urine POSITIVE (Not Detect); Cocaine Screen Urine Not Detected (Not Detect); Fentanyl, urine POSITIVE (Not Detect); Opiate Screen Urine Not Detected (Not Detect); Phencyclidine Screen Urine Not Detected (Not Detect)
[2022-05-14 21:35] VITALS: RESP 22
--- NOTE | 2022-05-14 21:41 | PC.NURSE ---
20:50 patient came in agitated, anxious, restless, she was medicated with Haldol 5 mg IM and Zypresa 10 mg IM she was placed on 1:1 for safety in her room (3)staff by her side will continue to monitor. 21:15 patient in her bed talking to staff in her room, less anxious, will continue to monitor. 21:30 patient in her bed with staff, light out in her room.Will continue to monitor. 21:45 patient in her room with staff at her side, eyes closed.will continue to monitor.
[2022-05-14 21:50] VITALS: RESP 19
--- NOTE | 2022-05-14 23:15 | PC.NURSE ---
2200 patient sleeping in her bed comfortably, staff by her side for safety. Will continue to monitor. 2215 patient asleep comfortable. Staff by her side for safety. Will continue to monitor. 2230 patient asleep comfortable. Staff by her side for safety. Will continue to monitor. 2245 patient asleep comfortable. Staff by her side for safety. Will continue to monitor. 2300 patient asleep comfortable. Staff by her side for safety. Will continue to monitor. 2315 patient asleep comfortable. Staff by her side for safety. Will continue to monitor.
--- NOTE | 2022-05-14 23:59 | PC.NURSE ---
2330 Patient sleeping comfortably, continue on 1:1 for safety, staff by her side. Unable to give 2300 medications at this time due to sedation.Will continue to monitor. 2345 Patient sleeping with staff by her side for safety, Will continue to monitor. 05/15/2022 0000 Patient asleep comfortable, staff by her side for safety. Will continue to monitor. 0015 Patient asleep comfortable, staff by her side for safety. Will continue to monitor
[2022-05-15] MEDS: Prazosin HCL 1 MG CAPSULE PO (02:04)
[2022-05-15] MEDS: traZODone HCL 100 MG TABLET PO (02:04)
[2022-05-15] MEDS: Topiramate 25 MG TABLET PO ×2 (02:05→07:57)
[2022-05-15] MEDS: HaloperidoL 5 MG TABLET PO ×2 (02:07→07:58)
[2022-05-15] MEDS: LORazepam 1 MG TABLET PO (02:07)
[2022-05-15] MEDS: Benztropine Mesylate 0.5 MG TABLET PO ×2 (02:08→07:57)
[2022-05-15] MEDS: diphenhydrAMINE HCL 25 MG TABLET 100 MG PO (02:11)
[2022-05-15] MEDS: Prazosin HCL 5 MG CAPSULE 15 MG PO (02:11)
--- NOTE | 2022-05-15 02:18 | PC.NURSE ---
0030 Patient sleeping comfortably, staff by her side for safety, 1:1 continue. Will continue to monitor. 0045 Patient was up for few minutes then when back to sleep, staff by her side for safety. will continue to monitor. 0100 Patient sleeping comfortable, staff by her side for safety , will continue to monitor. 0115 Patient asleep comfortably, staff by her side for safety. Will continue to monitor. 0130 Patient sleeping comfortably, staff by her side for safety. Will continue to monitor. 0145 Patient awake, talking to staff in her room, will continue to monitor. 0200 Patient was up talking asking for her night time meds, staff by he side for safety. Will continue to monitor. 0215 Patient was sitting in her bed with staff, all schedule 9 pm from 05/14/2022 given, she was thankful. staff by her side for safety. Will continue to monitor. 0230 Patient back to sleep comfortable with staff by her side for safety. Will continue to monitor.
--- NOTE | 2022-05-15 06:04 | PC.NURSE ---
0605 Patient in bed sleeping comfortably. continue on 1:1 for safety. staff by her side.No distress noted, will continue to monitor.
--- NOTE | 2022-05-15 07:07 | PC.NURSE ---
patient appears to remain at rest, respirations are even and unlabored patient appears in no distress
[2022-05-15] MEDS: Ferrous Sulfate 324 MG TABLET.DR PO (07:57)
[2022-05-15] MEDS: DULoxetine HCl 60 MG CAPSULE.DR PO (07:57)
[2022-05-15] MEDS: Omeprazole 20 MG CAPSULE.DR PO (07:57)
[2022-05-15] MEDS: Lithium Carbonate 300 MG CAPSULE PO (07:58)
[2022-05-15] MEDS: Loratadine 10 MG TABLET PO (08:20)
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
--- NOTE | 2022-05-15 12:52 | MHC.CARE ---
Pt was DCd to the waiting room to await a Lyft. CARE Team experienced difficulty in securing a Lyft. A Lyft was finally secured after a lengthy wait and numerous cancellations due to no drivers being available. CARE Team attempted to give the Lyft information to pt only to find that pt was nowhere to be found. Lyft was cancelled.
== END 2022-05-15 11:29 | disposition home or self-care (01) ==
PROVIDERS: Nurse Practitioner Family; Emergency Provider Emergency Medicine; PCP Pediatrics
DX: F23 Brief psychotic disorder (principal); F31.5 Bipolar disorder, current episode depressed, severe, with psychotic features; F41.9 Anxiety disorder, unspecified; R45.851 Suicidal ideations; Z20.822 Contact with and (suspected) exposure to COVID-19; F60.3 Borderline personality disorder; F12.90 Cannabis use, unspecified, uncomplicated; F43.12 Post-traumatic stress disorder, chronic; Z87.891 Personal history of nicotine dependence; Z91.52 Personal history of nonsuicidal self-harm; Z79.899 Other long term (current) drug therapy
CPT/HCPCS: 80307; 81003; 81025; 87635; 96372; 99284; Q0163

== ENCOUNTER 2022-05-15 18:15 | Emergency (ER) | payer OTHER, SELFPAY ==
[2022-05-15 18:20] VITALS: BP 128/78; PULSE 112; RESP 18; TEMP 36.6; BMI 46.4
--- NOTE | 2022-05-15 18:25 | ED_ITS ---
HPI - Psych General Chief Complaint: Psychiatric Symptoms Stated Complaint: DIZZINESS/SUB/ABUSE Source: patient and EMS Mode of arrival: EMS Limitations: no limitations History of Present Illness HPI Narrative: 37-year-old female presents via EMS for anxiety and suicidal ideation after smoking marijuana but she feels was laced with something. MD complaint: suicidal ideation, anxiety and substance abuse Onset (ago): year(s) Duration: constant History of same: Yes Relieving factors: none Exacerbating factors: drug use Context: recent drug abuse Associated psychiatric symptoms: depression, suicidal ideation and racing thoughts Associated symptoms: denies other symptoms Treatments prior to arrival: none If self harm: admits thoughts of self harm Related Data Home Medications Medication Instructions Recorded Confirmed omeprazole 20 mg capsule,delayed 20 mg PO DAILY 11/29/20 05/14/22 release fluticasone 250 mcg-salmeterol 50 2 puff inhalation BID 08/02/21 05/14/22 mcg/dose blistr powdr for inhalation (Advair Diskus) duloxetine 60 mg capsule,delayed 60 mg PO QAM 08/03/21 05/14/22 release acetaminophen 500 mg tablet 500 mg PO Q6H PRN Pain (Scale 09/01/21 05/14/22 Score 1-3) albuterol sulfate 2.5 mg/3 mL 2.5 mg inhalation Q4H PRN 09/01/21 05/14/22 (0.083 %) solution for nebulization Shortness Of Breath fluticasone propionate 50 2 spray intranasal DAILY 10/03/21 05/14/22 mcg/actuation nasal spray,suspension nicotine (polacrilex) 2 mg gum 2 mg buccal Q2H PRN Nicotine 10/24/21 05/14/22 (Nicorette) Cravings benztropine 0.5 mg tablet 1 tab PO BID 04/29/22 05/14/22 cetirizine 10 mg tablet 1 tab PO DAILY 04/29/22 05/14/22 diphenhydramine HCl 50 mg capsule 2 cap PO BEDTIME 04/29/22 05/14/22 (Banophen) ferrous sulfate 325 mg (65 mg 1 tab PO DAILY 04/29/22 05/14/22 iron) tablet,delayed release haloperidol 5 mg tablet 1 tab PO TID 04/29/22 05/14/22 hydroxyzine pamoate 50 mg capsule 1 cap PO BID PRN anxiety 04/29/22 05/14/22 lithium carbonate 300 mg tablet 1 tab PO DAILY 04/29/22 05/14/22 lorazepam 1 mg tablet 1 tab PO TID PRN anxiety 04/29/22 05/14/22 prazosin 1 mg capsule 1 cap PO BEDTIME 04/29/22 05/14/22 prazosin 5 mg capsule 3 cap PO BEDTIME 04/29/22 05/14/22 topiramate 25 mg tablet 1 tab PO BID 04/29/22 05/14/22 trazodone 50 mg tablet 2 tab PO BEDTIME PRN Insomnia 04/29/22 05/14/22 zolpidem 5 mg tablet 1 tab PO BEDTIME PRN Insomnia 05/01/22 05/14/22 Previous Rx's Medication Instructions Recorded haloperidol decanoate 50 mg/mL 75 mg (1.5 mL) IM Q28D@1300 28 09/22/21 intramuscular solution days #1.5 mL Allergies Allergy/AdvReac Type Severity Reaction Status Date / Time carbamazepine [From TEGRETOL] AdvReac Unknown NAUSEA & Verified 05/15/22 19:31 VOMITING Fish Containing Products AdvReac Stomach Verified 05/15/22 19:31 Upset Review of Systems Review of Systems: Constitutional: No Fever, No Chills ENT/Mouth: No Ear Pain, No Nasal Congestion, No sore throat Eyes: No Eye Pain, No Swelling, No Redness Cardiovascular: No Chest Pain, No SOB Respiratory: No Cough, No Sputum, No Dyspnea Gastrointestinal: No Nausea, No Vomiting, No Diarrhea, No Hematochezia, No Melena Genitourinary: No Dysuria, No Urinary Frequency, No Hematuria Musculoskeletal: No Myalgias Skin: No Skin Lesions, No rash Neuro: No Weakness, No Numbness, No Paresthesias, No Dizziness, No Headache Psych: positive Anxiety, positive Depression, positive SI, positive substance abuse Heme/Lymph: No Lymphadenopathy Endocrine: No Polyuria, No Polydipsia Yes all other systems are reviewed and are negative [facility] Past Medical History Attestation statement: The following information was validated with the patient. Source: old records reviewed Medical History Acute post-traumatic stress disorder Adjustment disorder Anxiety Asthma Borderline personality disorder Chronic post-traumatic stress disorder (PTSD) COPD (chronic obstructive pulmonary disease) Depression GERD (gastroesophageal reflux disease) Increased BMI Injury, self-inflicted Intentional self-harm PTSD (post-traumatic stress disorder) Recurrent major depression-severe Schizoaffective disorder Self-harming behavior Suicidal ideation Suicidal ideation Social History Social History Household Members: Other Household Members Other:: residential Housing: Other Housing Other:: residential Do you presently have visiting nurse or other home services: No Alcohol intake: never Patient Tobacco Use Status: Former Tobacco user Quit Date: 02-19-21 Tobacco use type: Cigarette Cigarette Packs Per Day: 1 Cigarettes Per Day: 20.0 Years Smoked: 17 e-Cigarette/Vaping Use: Never Used Second Hand Smoke Exposure: Yes Substance Use Type: Marijuana Advance Directives: No Advance Directives Information Provided: No service: No Sexual orientation: Don't Know Physical Exam Vital Signs: Vital Signs: Last Vital Signs Temp 98 F 05/15/22 18:20 Pulse 112 H 05/15/22 18:20 Resp 18 05/15/22 18:20 BP 128/78 05/15/22 18:20 BMI result Body Mass Index 46.4 Appearance: Alert.? Oriented X3.? Moderate emotional distress.? Eyes: Pupils equal, round and reactive to light. ENT: Pharynx normal. Neck: Normal inspection.? Neck supple. CVS: Normal heart rate and rhythm.? Pulses normal. Respiratory: No respiratory distress.? Breath sounds normal. Abdomen: Soft and nontender. Skin:? Numerous superficial skin lacerations to the arms, legs and abdomen, numerous scars throughout body from self-inflicted injuries.? Skin warm and dry.? Normal skin color.? Normal skin turgor. Extremities: No lower extremity edema.? Gait well-balanced well coordinated. Neuro: No motor deficit.? No sensory deficit.? Cranial nerves 2-12 intact.? Course Course Course Narrative: 37-year-old female presents via EMS for suicidal ideation and anxiety after smoking marijuana that she believes was laced with another drug. Patient has presented several times this week for similar circumstances. Patient states that she needs IM medications, and states that being in the hallway in the emergency department is too stressful for her. 18:30 patient was transported to the Psychiatric pod 18:46 RN states that patient is willing to take p.o. medications at this time. Will order Zyprexa 10, Ativan 2 mg. Patient stated to RN that she feels better and safer in the psychiatric unit. 20:00 patient is calm, cooperative, resting comfortably. Medically cleared. Positive for fentanyl and marijuana for her drug screen. N consult pending. MDM - Psych Differential Diagnosis Differential diagnosis: Likely acute psychosis, suicidal ideation, bipolar disorder, depression, drug-induced psychotic disorder, acute anxiety and substance abuse Medical Records Attestation: I reviewed the patient's medical records. Lab Data Attestation: I reviewed the patient's lab results. Labs: Lab Results 05/15/22 05/15/22 Range/Units 18:52 18:52 Urine Opiates Screen Not Detected (Not Detect) Urine Fentanyl Screen POSITIVE H (Not Detect) Ur Barbiturates Screen Not Detected (Not Detect) Ur Phencyclidine Scrn Not Detected (Not Detect) Ur Amphetamines Screen Not Detected (Not Detect) U Benzodiazepines Scrn Not Detected (Not Detect) Urine Cocaine Screen Not Detected (Not Detect) U Marijuana (THC) Screen POSITIVE H (Not Detect) COVID-19 (RAFAL) Negative (Negative) COVID-19 Clin Com See Note Discharge Plan Discharge Clinical Impression: Acute psychosis, Drug-induced psychotic disorder Patient Disposition: Home, Self-Care Instructions: Brief Psychotic Disorder (ED), Depression (ED), Anxiety (ED) Additional Instructions: Follow-up with outpatient psychiatry as scheduled. Thank you for choosing this emergency department for evaluation. Please follow-up with primary care physician as needed. Return to the emergency department for any new, concerning, or worsening symptoms. Prescriptions: No Action omeprazole 20 mg capsule,delayed release(DR/EC) 20 mg PO DAILY fluticasone propion-salmeterol [Advair Diskus] 250-50 mcg/dose blister with device 2 puff inhalation BID duloxetine 60 mg capsule,delayed release(DR/EC) 60 mg PO QAM fluticasone propionate 50 mcg/actuation spray,suspension 2 spray intranasal DAILY nicotine (polacrilex) [Nicorette] 2 mg gum 2 mg buccal Q2H PRN (Reason: Nicotine Cravings) lithium carbonate 300 mg tablet 1 tab PO DAILY benztropine 0.5 mg tablet 1 tab PO BID haloperidol 5 mg tablet 1 tab PO TID diphenhydramine HCl [Banophen] 50 mg capsule 2 cap PO BEDTIME trazodone 50 mg tablet 2 tab PO BEDTIME PRN (Reason: Insomnia) cetirizine 10 mg tablet 1 tab PO DAILY prazosin 1 mg capsule 1 cap PO BEDTIME hydroxyzine pamoate 50 mg capsule 1 cap PO BID PRN (Reason: anxiety) topiramate 25 mg tablet 1 tab PO BID prazosin 5 mg capsule 3 cap PO BEDTIME lorazepam 1 mg tablet 1 tab PO TID PRN (Reason: anxiety) ferrous sulfate 325 mg (65 mg iron) tablet,delayed release (DR/EC) 1 tab PO DAILY albuterol sulfate 2.5 mg /3 mL (0.083 %) Solution For Nebulization 2.5 mg INHALATION Q4H PRN (Reason: Shortness Of Breath) acetaminophen 500 mg Tablet 500 mg PO Q6H PRN (Reason: Pain (Scale Score 1-3)) haloperidol decanoate 50 mg/mL Solution 75 mg IM Q28D@1300 28 Days Qty: 1.5 0RF zolpidem 5 mg tablet 1 tab PO BEDTIME PRN (Reason: Insomnia)
[2022-05-15 18:27] VITALS: BP 131/83; PULSE 112
[2022-05-15] MEDS: LORazepam 1 MG TABLET 2 MG PO (19:02)
[2022-05-15] MEDS: OLANZapine 10 MG TABLET PO (19:02)
[2022-05-15 19:20] LABS: Amphetamine Screen Urine Not Detected (Not Detect); Barbiturates, Urine Not Detected (Not Detect); Benzodiazepines Screen Urine Not Detected (Not Detect); Cannabinoid Screen Urine POSITIVE (Not Detect); Cocaine Screen Urine Not Detected (Not Detect); Fentanyl, urine POSITIVE (Not Detect); Opiate Screen Urine Not Detected (Not Detect); Phencyclidine Screen Urine Not Detected (Not Detect)
[2022-05-15 19:21] LABS: COVID-19 Test Negative (Negative); IDNOW Serial# 55D5AD1C
--- NOTE | 2022-05-16 06:47 | PC.NURSE ---
Patient slept the majority of overnight without incident. 1:1 sitter at bedside d/t self harm tendencies.
--- NOTE | 2022-05-16 12:13 | PC.NURSE ---
pt sleeping, 1:[address] remains in place at this time
--- NOTE | 2022-05-16 12:46 | PC.NURSE ---
CARE team at bedside
--- NOTE | 2022-05-16 13:37 | MHC.CARE ---
CARE team conducted a crisis screening on Stella; staff report that she arrived ?via ambulance last evening reporting suicidal ideation after smoking marijuana that she believes was laced with another drug and was requesting IM medication.?Stella has presented to [facility] multiple times this week with similar presentation. She reports she feels better now and feel the marijuana she smoked ?bugged me out so I called 911?. Stella reports she wants to return back to [facility], she denies any self-harming behaviors, suicidal or homicidal ideation plan or intent and denies any visual hallucinations, however reports audio hallucinations at baseline. She reports voices are not command in nature. She reports her sleep is good, however her appetite is poor, CARE team encouraged her to talk to her medication prescriber about her poor appetite recently and she reports she will. Care plan reviewed and CARE team will call Stella later on and Stella requested a LYFT ride home as she reports she forgot her bus pass. CARE team called [facility] staff and they report they only have 1 staff person on so they are not able to transport Stella home. Lyft will be called for transportation back to [facility]. T/w consulted with CARE Team salesperson new cars Anabell BAZAN and ED physician Dr. Bond who all are in agreement with disposition for discharge back to [facility]. Borderline Personality Disorder F60.3, Post-Traumatic Stress Disorder F43.10,?Schizoaffective Disorder F25
== END 2022-05-16 14:00 | disposition home or self-care (01) ==
PROVIDERS: Nurse Practitioner Family; Emergency Provider Emergency Medicine
DX: F23 Brief psychotic disorder (principal); R42 Dizziness and giddiness; F41.1 Generalized anxiety disorder; F43.0 Acute stress reaction; R45.851 Suicidal ideations; F12.90 Cannabis use, unspecified, uncomplicated; F17.210 Nicotine dependence, cigarettes, uncomplicated; Z71.6 Tobacco abuse counseling; Z20.822 Contact with and (suspected) exposure to COVID-19; Z79.899 Other long term (current) drug therapy
CPT/HCPCS: 80307; 87635; 99284; 99285

== ENCOUNTER 2022-05-16 19:14 | Emergency (ER) | payer OTHER, SELFPAY ==
[2022-05-16 19:22] VITALS: BP 133/82; PULSE 119; RESP 20; TEMP 36.9; O2SAT 97; BMI 42.3
[2022-05-16 20:10] VITALS: RESP 20
[2022-05-16] MEDS: Haloperidol Lactate 5 MG/ML VIAL IM (20:10)
[2022-05-16] MEDS: diphenhydrAMINE HCL 50 MG/ML VIAL 25 MG IM (20:10)
--- NOTE | 2022-05-16 20:10 | ED_ITS ---
HPI - General Adult General Chief complaint: Psychiatric Symptoms Stated complaint: crisis eval,cutting self Time Seen by Provider: 05/16/22 20:10 Source: patient Mode of arrival: ambulatory Limitations: no limitations History of Present Illness HPI narrative: Patient is a 37 year old female presenting to the emergency department today with SI and hearing voices. Patient states that she wants to hurt herself. Patient denies any dizziness, lightheadedness, abdominal pain, nausea, vomiting, fever, chills, blurry vision, double vision, loss of vision, chest pain, difficulty breathing, shortness of breath, back pain, night sweats, pain with urination, increased urinary frequency, increased urinary urgency, blood in her urine or stool, syncope or a near syncopal episode, bowel incontinence, bladder incontinence, bowel retention, bladder retention, or any other complaints at this time. Onset (ago): day(s) Relieving factors: none Exacerbating factors: none Associated symptoms: denies other symptoms Treatments prior to arrival: none Related Data Home Medications Medication Instructions Recorded Confirmed omeprazole 20 mg capsule,delayed 20 mg PO DAILY 11/29/20 05/16/22 release fluticasone 250 mcg-salmeterol 50 2 puff inhalation BID 08/02/21 05/16/22 mcg/dose blistr powdr for inhalation (Advair Diskus) duloxetine 60 mg capsule,delayed 60 mg PO QAM 08/03/21 05/16/22 release acetaminophen 500 mg tablet 500 mg PO Q6H PRN Pain (Scale 09/01/21 05/16/22 Score 1-3) albuterol sulfate 2.5 mg/3 mL 2.5 mg inhalation Q4H PRN 09/01/21 05/16/22 (0.083 %) solution for nebulization Shortness Of Breath fluticasone propionate 50 2 spray intranasal DAILY 10/03/21 05/16/22 mcg/actuation nasal spray,suspension nicotine (polacrilex) 2 mg gum 2 mg buccal Q2H PRN Nicotine 10/24/21 05/16/22 (Nicorette) Cravings benztropine 0.5 mg tablet 1 tab PO BID 04/29/22 05/16/22 cetirizine 10 mg tablet 1 tab PO DAILY 04/29/22 05/16/22 diphenhydramine HCl 50 mg capsule 2 cap PO BEDTIME 04/29/22 05/16/22 (Banophen) ferrous sulfate 325 mg (65 mg 1 tab PO DAILY 04/29/22 05/16/22 iron) tablet,delayed release haloperidol 5 mg tablet 1 tab PO TID 04/29/22 05/16/22 hydroxyzine pamoate 50 mg capsule 1 cap PO BID PRN anxiety 04/29/22 05/16/22 lithium carbonate 300 mg tablet 1 tab PO DAILY 04/29/22 05/16/22 lorazepam 1 mg tablet 1 tab PO TID PRN anxiety 04/29/22 05/16/22 prazosin 1 mg capsule 1 cap PO BEDTIME 04/29/22 05/16/22 prazosin 5 mg capsule 3 cap PO BEDTIME 04/29/22 05/16/22 topiramate 25 mg tablet 1 tab PO BID 04/29/22 05/16/22 trazodone 50 mg tablet 2 tab PO BEDTIME PRN Insomnia 04/29/22 05/16/22 zolpidem 5 mg tablet 1 tab PO BEDTIME PRN Insomnia 05/01/22 05/16/22 Previous Rx's Medication Instructions Recorded haloperidol decanoate 50 mg/mL 75 mg (1.5 mL) IM Q28D@1300 28 09/22/21 intramuscular solution days #1.5 mL Allergies Allergy/AdvReac Type Severity Reaction Status Date / Time carbamazepine [From TEGRETOL] AdvReac Unknown NAUSEA & Verified 05/15/22 19:31 VOMITING Fish Containing Products AdvReac Stomach Verified 05/15/22 19:31 Upset Review of Systems Constitutional: Constitutional: Reports no additional constitutional complaints, Denies chills, Denies fever(s) and Denies night sweats Eyes: Eyes: Reports no additional eye complaints, Denies blurry vision, Denies change in vision, Denies diplopia, Denies eye discharge, Denies loss of vision and Denies eye pain ENT: Denies dizziness Cardiovascular: Cardiovascular: Reports no additional cardiovascular complaints, Denies chest pain, Denies lightheadedness, Denies Loss of Consciousness and Denies dyspnea Respiratory: Respiratory: Reports no additional respiratory complaints and Denies dyspnea Gastrointestinal: Gastrointestinal: Reports no additional gastrointestinal complaints, Denies abdominal pain, Denies melena, Denies hematochezia, Denies change in bowel habits and Denies change in stool character Genitourinary: Genitourinary: Denies hematuria, Denies urinary frequency, Denies dysuria, Denies urinary incontinence, Denies urinary hesitancy and Denies urinary urgency Musculoskeletal: Musculoskeletal: Reports no additional musculoskeletal complaints, Denies numbness and Denies tingling Neurologic: Denies dizziness, Denies loss of vision, Denies numbness and Denies tingling Psychiatric: Psychiatric: Reports no additional psychiatric complaints and Reports suicidal ideation Endocrine: Endocrine: Reports no additional endocrine complaints Hematologic/Lymphatic: Hematologic/Lymphatic: Reports no additional hematologic/lymphatic complaints Allergic/Immunologic: Allergic/Immunologic: Reports no additional allergic/immunologic complaints PMFSH Past Medical History Attestation statement: The following information was validated with the patient. Source: old records reviewed Medical History Acute post-traumatic stress disorder Adjustment disorder Anxiety Asthma Borderline personality disorder Chronic post-traumatic stress disorder (PTSD) COPD (chronic obstructive pulmonary disease) Depression GERD (gastroesophageal reflux disease) Increased BMI Injury, self-inflicted Intentional self-harm PTSD (post-traumatic stress disorder) Recurrent major depression-severe Schizoaffective disorder Self-harming behavior Suicidal ideation Suicidal ideation Social History Social History Household Members: Other Household Members Other:: half-way Housing: Other Housing Other:: half-way Do you presently have visiting nurse or other home services: No Alcohol intake: never Patient Tobacco Use Status: Former Tobacco user Quit Date: 02-19-21 Tobacco use type: Cigarette Cigarette Packs Per Day: 1 Cigarettes Per Day: 20.0 Years Smoked: 17 e-Cigarette/Vaping Use: Never Used Second Hand Smoke Exposure: Yes Substance Use Type: Marijuana Advance Directives: No Advance Directives Information Provided: No service: No Sexual orientation: Don't Know Physical Exam ED Vital Signs: Vital Signs - 24 hr 05/16/22 19:22 05/16/22 20:10 05/16/22 20:25 Temperature 98.5 F Pulse Rate 119 H Respiratory Rate 20 20 19 Blood Pressure 133/82 Pulse Oximetry 97 Oxygen Delivery Method Room Air 05/16/22 20:40 05/16/22 20:55 05/16/22 21:10 Temperature Pulse Rate Respiratory Rate 19 19 19 Blood Pressure Pulse Oximetry Oxygen Delivery Method BMI result Body Mass Index 42.3 Const General: cooperative, no acute distress, alert and awake Nutritional Appearance: well nourished Orientation/consciousness: patient oriented x3 Limitations: no limitations HENMT Head: Yes normal to inspection and Yes atraumatic Ears: hearing grossly normal bilaterally and external ears normal General nose exam: Normal external nose present, no nasal discharge noted and no epistaxis Face and sinus: Yes normal facial exam, No abrasion and No laceration Mouth: Normal oral and palatal mucosa present, no drooling and no muffled voice Eyes General: appearance normal, both eyes and all related structures Periorbital: periorbital findings normal Eyelids: Yes eyelids normal Conjunctivae: conjunctivae normal Pupils: Equal, round and reactive pupils present EOM: EOMs intact bilaterally Neck Neck: Yes normal visual inspection, Yes full ROM and Yes no lymphadenopathy Chest Chest palpation & inspection: normal inspection of the chest Resp Effort & Inspection: normal respiratory effort and able to speak in complete sentences Auscultation: clear to auscultation bilaterally Cardio Rate: regular rate Rhythm: regular rhythm GI Inspection: Yes normal to inspection Neuro General: patient oriented x3 and moves all extremities Cranial nerves: Yes Equal, round and reactive pupils present Cognition (Neuro): normal cognition Motor exam (neuro): 5/5 motor strength present throughout Sensory Exam: Normal double simultaneous stimulation for sensation Coordination: [id number] test normal Extrem General: Yes normal to inspection, Yes full ROM and Yes capillary refill normal Psych Appearance: grossly normal Mental Status: mental status grossly normal Affect: normal affect Attitude: Guarded attititude/behavior present Thought process: Illogical thought process present Thought content: Suicidality present Insight: Limited insight present (Psych) Course Reevaluation(s) Reevaluation #1: Patient was initially cooperative and then began becoming aggressive to self and attempting to harm herself. Patient is a 1:1 and had to be given IM medication. Time: 20:10 Medical Decision Making MDM Narrative Medical decision making narrative: Patient is a 37 year old female presenting to the emergency department today with increased SI. Patient's physical exam was unremarkable. Patient's urine showed no acute process. I explained my physical exam findings as well as all test results to the patient. I answered all questions asked by the patient. Patient had to be given IM Haldol and Benadryl to get her to stop attempting to hurt herself. Patient is pending examinationy by [facility]. Medical Records Medical records reviewed: Yes I reviewed the patient's medical records. Lab Data Lab results reviewed: Yes I reviewed the patient's lab results. Labs: Lab Results 05/16/22 05/16/22 05/16/22 Range/Units 20:12 22:00 22:00 Urine Color Yellow Urine Appearance Cloudy Urine pH 6.0 (5.0-9.0) Ur Specific [place] 1.020 (1.005-1.025) Urine Protein Negative (Neg-Trace) mg/dL Urine Glucose (UA) Negative (Negative) mg/dL Urine Ketones Trace (Negative) mg/dL Urine Blood Negative (Negative) Urine Nitrite Negative (Negative) Ur Leukocyte Esterase Negative (Negative) Urine Test (NEGATIVE) Urine Opiates Screen Not Detected (Not Detect) Urine Fentanyl Screen POSITIVE H (Not Detect) Ur Barbiturates Screen Not Detected (Not Detect) Ur Phencyclidine Scrn Not Detected (Not Detect) Ur Amphetamines Screen Not Detected (Not Detect) U Benzodiazepines Scrn Not Detected (Not Detect) Urine Cocaine Screen Not Detected (Not Detect) U Marijuana (THC) Screen POSITIVE H (Not Detect) COVID-19 (RAFAL) Negative (Negative) COVID-19 Clin [employer] See Note 05/16/22 Range/Units 22:00 Urine Color Urine Appearance Urine pH (5.0-9.0) Ur Specific [place] (1.005-1.025) Urine Protein (Neg-Trace) mg/dL Urine Glucose (UA) (Negative) mg/dL Urine Ketones (Negative) mg/dL Urine Blood (Negative) Urine Nitrite (Negative) Ur Leukocyte Esterase (Negative) Urine Test NEGATIVE (NEGATIVE) Urine Opiates Screen (Not Detect) Urine Fentanyl Screen (Not Detect) Ur Barbiturates Screen (Not Detect) Ur Phencyclidine Scrn (Not Detect) Ur Amphetamines Screen (Not Detect) U Benzodiazepines Scrn (Not Detect) Urine Cocaine Screen (Not Detect) U Marijuana (THC) Screen (Not Detect) COVID-19 (RAFAL) (Negative) COVID-19 Clin Com Discharge Plan Discharge Clinical Impression: Suicidal ideation Patient Disposition: Still a Patient Prescriptions: No Action omeprazole 20 mg capsule,delayed release(DR/EC) 20 mg PO DAILY fluticasone propion-salmeterol [Advair Diskus] 250-50 mcg/dose blister with device 2 puff inhalation BID duloxetine 60 mg capsule,delayed release(DR/EC) 60 mg PO QAM fluticasone propionate 50 mcg/actuation spray,suspension 2 spray intranasal DAILY nicotine (polacrilex) [Nicorette] 2 mg gum 2 mg buccal Q2H PRN (Reason: Nicotine Cravings) lithium carbonate 300 mg tablet 1 tab PO DAILY benztropine 0.5 mg tablet 1 tab PO BID haloperidol 5 mg tablet 1 tab PO TID diphenhydramine HCl [Banophen] 50 mg capsule 2 cap PO BEDTIME trazodone 50 mg tablet 2 tab PO BEDTIME PRN (Reason: Insomnia) cetirizine 10 mg tablet 1 tab PO DAILY prazosin 1 mg capsule 1 cap PO BEDTIME hydroxyzine pamoate 50 mg capsule 1 cap PO BID PRN (Reason: anxiety) topiramate 25 mg tablet 1 tab PO BID prazosin 5 mg capsule 3 cap PO BEDTIME lorazepam 1 mg tablet 1 tab PO TID PRN (Reason: anxiety) ferrous sulfate 325 mg (65 mg iron) tablet,delayed release (DR/EC) 1 tab PO DAILY albuterol sulfate 2.5 mg /3 mL (0.083 %) Solution For Nebulization 2.5 mg INHALATION Q4H PRN (Reason: Shortness Of Breath) acetaminophen 500 mg Tablet 500 mg PO Q6H PRN (Reason: Pain (Scale Score 1-3)) haloperidol decanoate 50 mg/mL Solution 75 mg IM Q28D@1300 28 Days Qty: 1.5 0RF zolpidem 5 mg tablet 1 tab PO BEDTIME PRN (Reason: Insomnia)
[2022-05-16 20:25] VITALS: RESP 19
[2022-05-16 20:38] LABS: COVID-19 Test Negative (Negative); IDNOW Serial# 55D5AD1C
[2022-05-16 20:40] VITALS: RESP 19
[2022-05-16 20:55] VITALS: RESP 19
[2022-05-16 21:10] VITALS: RESP 19
[2022-05-16 22:14] LABS: Appearance Urine Cloudy; Color Urine Yellow; Glucose Urine UA Negative (Negative); Leukocyte Esterase Urine Negative (Negative); Nitrite Urine Negative (Negative); UPreg QC Valid YES; Urine Blood Negative (Negative); Urine Ketones Trace mg/dL (Negative); Urine Pregnancy NEGATIVE (NEGATIVE); Urine Protein Negative (Neg-Trace)
[2022-05-16] MEDS: traZODone HCL 100 MG TABLET PO (22:21)
[2022-05-16] MEDS: LORazepam 1 MG TABLET PO (22:21)
[2022-05-16] MEDS: Prazosin HCL 1 MG CAPSULE PO (22:21)
[2022-05-16] MEDS: Benztropine Mesylate 0.5 MG TABLET PO (22:21)
[2022-05-16] MEDS: diphenhydrAMINE HCL 25 MG TABLET 100 MG PO (22:21)
[2022-05-16] MEDS: HaloperidoL 5 MG TABLET PO (22:21)
[2022-05-16] MEDS: Zolpidem Tartrate 5 MG TABLET PO (22:21)
[2022-05-16] MEDS: Prazosin HCL 5 MG CAPSULE 15 MG PO (22:21)
[2022-05-16] MEDS: Topiramate 25 MG TABLET PO (22:21)
[2022-05-16 22:33] LABS: Amphetamine Screen Urine Not Detected (Not Detect); Barbiturates, Urine Not Detected (Not Detect); Benzodiazepines Screen Urine Not Detected (Not Detect); Cannabinoid Screen Urine POSITIVE (Not Detect); Cocaine Screen Urine Not Detected (Not Detect); Fentanyl, urine POSITIVE (Not Detect); Opiate Screen Urine Not Detected (Not Detect); Phencyclidine Screen Urine Not Detected (Not Detect)
--- NOTE | 2022-05-17 06:11 | PC.NURSE ---
Patient at the time of arrival in the pod, depressed/upset/restless/anxious/pressured speech/made a suicidal statement by saying I am done, went straight to the bathroom started banging her hard against bathroom wall, provider notified/ordered Haldol 5 mg IM and Benadryl 25 mg IM administered as ordered at 2009 with some effect, HS medication was administered at 1, positive combined effect, patient slept through the night, observed on 1:1 for safety and sucidality, [facility] referral completed/confirmed/pending ETA, behavior unpredictable, medication compliant, will continue to monitor.
[2022-05-17] MEDS: Omeprazole 20 MG CAPSULE.DR PO (06:58)
[2022-05-17] MEDS: Lithium Carbonate 300 MG CAPSULE PO (08:37)
[2022-05-17] MEDS: Loratadine 10 MG TABLET PO (08:40)
[2022-05-17] MEDS: Topiramate 25 MG TABLET PO ×2 (08:40→19:54)
[2022-05-17] MEDS: Ferrous Sulfate 324 MG TABLET.DR PO (08:40)
[2022-05-17] MEDS: DULoxetine HCl 60 MG CAPSULE.DR PO (08:40)
[2022-05-17] MEDS: Benztropine Mesylate 0.5 MG TABLET PO ×2 (08:40→19:55)
[2022-05-17] MEDS: HaloperidoL 5 MG TABLET PO ×3 (08:40→19:55)
--- NOTE | 2022-05-17 08:53 | PC.NURSE ---
9 am meds given. right arm with bandage, pt stated that she cut herself yesterday , bandage intact and denies much pain.
[2022-05-17] MEDS: diphenhydrAMINE HCL 50 MG/ML VIAL IM (16:17)
[2022-05-17] MEDS: diphenhydrAMINE HCL 25 MG TABLET 100 MG PO (19:53)
[2022-05-17] MEDS: Prazosin HCL 5 MG CAPSULE 15 MG PO (19:54)
[2022-05-17] MEDS: Prazosin HCL 1 MG CAPSULE PO (19:54)
[2022-05-17] MEDS: LORazepam 1 MG TABLET PO (20:00)
[2022-05-17] MEDS: traZODone HCL 100 MG TABLET PO (20:01)
[2022-05-17] MEDS: Zolpidem Tartrate 5 MG TABLET PO (20:01)
[2022-05-17 20:11] VITALS: BP 117/81; PULSE 96; O2SAT 96
[2022-05-17] MEDS: OLANZapine 10 MG TABLET PO (22:18)
[2022-05-18] MEDS: Omeprazole 20 MG CAPSULE.DR PO (06:44)
--- NOTE | 2022-05-18 06:45 | PC.NURSE ---
Patient sleeping comfortably, continue on 1:1 for safety. Medication given as order. No distress noted. Will continue to monitor.
[2022-05-18 06:49] VITALS: BP 103/53; PULSE 66; TEMP 36.3; O2SAT 95
--- NOTE | 2022-05-18 10:29 | MHC.CARE ---
1000 Call from patient's associate team physician, Vanessa Valenzuela ([phone]) who was asking how patient was doing. She reported that her team is advocating for psychiatric admission due to her behavior changes/decompensation over the last few week which have resulted in multiple ED visits.
[2022-05-18] MEDS: Loratadine 10 MG TABLET PO (10:36)
[2022-05-18] MEDS: Ferrous Sulfate 324 MG TABLET.DR PO (10:36)
[2022-05-18] MEDS: DULoxetine HCl 60 MG CAPSULE.DR PO (10:36)
[2022-05-18] MEDS: Topiramate 25 MG TABLET PO (10:36)
[2022-05-18] MEDS: Benztropine Mesylate 0.5 MG TABLET PO (10:36)
[2022-05-18] MEDS: HaloperidoL 5 MG TABLET PO (10:36)
[2022-05-18] MEDS: Lithium Carbonate 300 MG CAPSULE PO (10:36)
[2022-05-18] MEDS: LORazepam 1 MG TABLET PO (13:44)
--- NOTE | 2022-05-18 13:47 | PC.NURSE ---
slept till 1030, medicated as ordered, alert, pleasant, wants to go back to alf and feels safe, denies si , denies plan to hurt self, ativan just given as pt reports some anxiety about wanting to go home and frustrated with waiting to hear back from CARE team
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
== END 2022-05-18 14:39 | disposition home or self-care (01) ==
PROVIDERS: Emergency Provider Internal Medicine; PCP Pediatrics
DX: R45.851 Suicidal ideations (principal); F25.1 Schizoaffective disorder, depressive type; Z20.822 Contact with and (suspected) exposure to COVID-19; F60.3 Borderline personality disorder; F43.12 Post-traumatic stress disorder, chronic; F12.90 Cannabis use, unspecified, uncomplicated; Z79.899 Other long term (current) drug therapy
CPT/HCPCS: 80307; 81003; 81025; 87635; 96372; 99284; 99285; J1200; Q0163

== ENCOUNTER 2022-05-26 22:07 | Emergency (ER) | payer OTHER, SELFPAY ==
[2022-05-26 22:26] VITALS: BP 128/71; PULSE 106; RESP 20; TEMP 37.2; O2SAT 98; BMI 93.4
== END 2022-05-27 00:35 | disposition left against medical advice (07) ==
PROVIDERS: Emergency Provider Emergency Medicine
DX: M54.50 Low back pain, unspecified (principal)
CPT/HCPCS: 99281

== ENCOUNTER 2022-06-02 10:43 | Emergency (ER) | payer OTHER, SELFPAY ==
[2022-06-02 10:46] VITALS: BP 118/73; BP 142/86; PULSE 87; PULSE 90; RESP 16; TEMP 36.7; O2SAT 96; BMI 42.8
[2022-06-02 11:09] VITALS: BP 118/73; PULSE 87; RESP 16; TEMP 36.7; O2SAT 96
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
--- NOTE | 2022-06-02 11:40 | PC.NURSE ---
provider spoke with patient, it was decided to discharge the patient back to her long-term. this nurse called the long-term and they are wanting their director to speak with the provider and are not wanting to picking machine operator crystal at this time. the patient has denied SI/HI. patient is currently calm/compliant and talking with staff. pt has not been changed over due to pending discharge, pt did turn over to staff a few lighters she had.
--- NOTE | 2022-06-02 12:19 | MHC.CARE ---
After pt is discharged, Dr. Gonzales reaches out to CARE Team and reports that does not want to take pt back to the [facility] at this time. CARE Team then receives a call from Vanessa at [facility] who is part of pt's outpatient team. Vanesas reports that pt was out of control prior to arrival and made an SI statement, leading them to call [facility] crisis services, who agreed to come and assess pt at the [facility]. Vanessa reports that pt also made superficial cuts that needed to be assessed so she was sent to the ED. Pt was seen and cleared by Dr. Gonzales. CARE Team encourages Vanessa to have pt seen by crisis in the community, as the [facility] continue to have concerns about pt's behavior toward staff. Pt denies SI/HI to Dr. Gonzales at this time. Vanessa reports that staff will come to picked edge sewing machine operator pt and they will call [facility] crisis to arrange for assessment.
--- NOTE | 2022-06-02 13:55 | PC.NURSE ---
mitchell from patients nursing home arrived and called to fern picker patient.
== END 2022-06-02 13:55 | disposition home or self-care (01) ==
LOC: HO.ED 11:38
PROVIDERS: Emergency Provider Emergency Medicine; PCP Pediatrics
DX: S40.812A Abrasion of left upper arm, initial encounter (principal); F43.10 Post-traumatic stress disorder, unspecified; F17.210 Nicotine dependence, cigarettes, uncomplicated; W26.9XXA Contact with unspecified sharp object(s), initial encounter; Y93.9 Activity, unspecified; Y92.9 Unspecified place or not applicable; Y99.9 Unspecified external cause status; Z79.899 Other long term (current) drug therapy; Z71.6 Tobacco abuse counseling
CPT/HCPCS: 99284

== ENCOUNTER 2022-06-03 13:41 | Emergency (ER) | payer OTHER, SELFPAY ==
[2022-06-03 14:26] VITALS: BP 130/78; BP 139/79; PULSE 100; PULSE 97; RESP 18; TEMP 36.9; O2SAT 100; BMI 43.4
--- NOTE | 2022-06-03 15:53 | ED.PSYCH ---
HPI - Psych General Chief Complaint: Psychiatric Symptoms Stated Complaint: CRISIS,SEC 12,SI Time Seen by Provider: 06/03/22 13:50 Source: patient Mode of arrival: EMS Limitations: no limitations History of Present Illness HPI Narrative: 37-year-old female who presents emergency department for evaluation of depression suicidal ideation. The patient states that she has been depressed for 6 months. She states that she feels depressed every day. She states that there was no specific trigger for her depression but she is thinking of her sister's who is anniversary is coming up soon. The patient states that over the past 2-3 days with her depression has gotten worse. She states that she often thinks about killing herself but her suicidal ideation is gotten worse over the past several days. She states that yesterday she cut her left forearm multiple times with a razor blade. She also states she banged her head against a wall multiple times as well. She states that she has a plan to overdose on pills. The patient was evaluated by [facility] as an outpatient, placed on a Section 12 and sent to the emergency department for evaluation. The patient was recently hospitalized here on our psychiatric service on 05/18/2022. MD complaint: suicidal ideation and feels depressed Onset (ago): month(s) (6) Duration: constant History of same: Yes Relieving factors: none Exacerbating factors: none Associated psychiatric symptoms: depression and suicidal ideation Associated symptoms: denies other symptoms Treatments prior to arrival: none If self harm: admits thoughts of self harm, has plan (Overdose on medications) and has acted on plan (Cut her left arm and banged her head on a wall) Related Data Home Medications Medication Instructions Recorded Confirmed omeprazole 20 mg capsule,delayed 20 mg PO DAILY@0630 11/29/20 06/03/22 release duloxetine 60 mg capsule,delayed 60 mg PO QAM 08/03/21 06/03/22 release acetaminophen 500 mg tablet 500 mg PO Q6H PRN Pain (Scale 09/01/21 06/03/22 Score 1-3) albuterol sulfate 2.5 mg/3 mL 2.5 mg inhalation Q4H PRN 09/01/21 06/03/22 (0.083 %) solution for nebulization Shortness Of Breath fluticasone propionate 50 2 spray intranasal DAILY 10/03/21 06/03/22 mcg/actuation nasal spray,suspension benztropine 0.5 mg tablet 1 tab PO BID 04/29/22 06/03/22 cetirizine 10 mg tablet 1 tab PO DAILY 04/29/22 06/03/22 diphenhydramine HCl 50 mg capsule 2 cap PO BEDTIME 04/29/22 06/03/22 (Banophen) ferrous sulfate 325 mg (65 mg 1 tab PO DAILY 04/29/22 06/03/22 iron) tablet,delayed release haloperidol 5 mg tablet 1 tab PO TID PRN Agitation 04/29/22 06/03/22 hydroxyzine pamoate 50 mg capsule 1 cap PO BID PRN anxiety 04/29/22 06/03/22 lithium carbonate 300 mg tablet 1 tab PO DAILY 04/29/22 06/03/22 lorazepam 1 mg tablet 1 tab PO TID PRN anxiety 04/29/22 06/03/22 prazosin 1 mg capsule 1 cap PO BEDTIME 04/29/22 06/03/22 prazosin 5 mg capsule 3 cap PO BEDTIME 04/29/22 06/03/22 topiramate 25 mg tablet 1 tab PO BID 04/29/22 06/03/22 trazodone 50 mg tablet 2 tab PO BEDTIME PRN Insomnia 04/29/22 06/03/22 albuterol sulfate 90 mcg/actuation 2 puff inhalation Q4-6H PRN 06/03/22 06/03/22 aerosol inhaler (ProAir HFA) Shortness Of Breath bacitracin 500 unit/gram topical 1 appl topical BID 06/03/22 06/03/22 ointment clonidine HCl 0.1 mg tablet 1 tab PO BID PRN anxiety 06/03/22 06/03/22 fluticasone propionate 230 2 puff inhalation BID 06/03/22 06/03/22 mcg-salmeterol 21 mcg/actuation HFA inhaler (Advair HFA) ibuprofen 800 mg tablet 1 tab PO Q8H PRN pain 06/03/22 06/03/22 zolpidem 10 mg tablet 1 tab PO BEDTIME PRN insomnia 06/03/22 06/03/22 Previous Rx's Medication Instructions Recorded haloperidol decanoate 50 mg/mL 75 mg (1.5 mL) IM Q28D@1300 28 02/07/22 intramuscular solution days #1.5 mL Allergies Allergy/AdvReac Type Severity Reaction Status Date / Time carbamazepine [From TEGRETOL] AdvReac Unknown NAUSEA & Verified 05/15/22 19:31 VOMITING Fish Containing Products AdvReac Stomach Verified 05/15/22 19:31 Upset Review of Systems Review of Systems: Yes all other systems are reviewed and are negative [facility] Past Medical History [facility] Narrative: Social history: She smokes 1 pack of cigarettes per day times 18 years. She denies alcohol use. She smokes marijuana 3 to 5 times a day. Medical History Acute post-traumatic stress disorder Adjustment disorder Anxiety Asthma Borderline personality disorder Chronic post-traumatic stress disorder (PTSD) COPD (chronic obstructive pulmonary disease) Depression GERD (gastroesophageal reflux disease) Increased BMI Injury, self-inflicted Intentional self-harm PTSD (post-traumatic stress disorder) Recurrent major depression-severe Schizoaffective disorder Self-harming behavior Suicidal ideation Suicidal ideation Social History Social History Household Members: Other Household Members Other:: fdc Housing: Other Housing Other:: fdc Do you presently have visiting nurse or other home services: No Alcohol intake: never Patient Tobacco Use Status: Never used Tobacco Tobacco use type: Cigarette Cigarette Packs Per Day: 1 Cigarettes Per Day: 20.0 Years Smoked: 17 Smoked in Last 30 Days: No e-Cigarette/Vaping Use: Never Used Second Hand Smoke Exposure: Yes Use of substances other than those prescribed or required for medical reasons: Yes Substance Use Type: Marijuana Substance Use Frequency: Occasionally Last Used Substance: Days (ago) Any prior treatment program specific to substance use: No Advance Directives: No Advance Directives Information Provided: No service: No Sexual orientation: Don't Know Physical Exam Vital Signs: Vital Signs: Last Vital Signs Temp 98.5 F 06/03/22 14:26 Pulse 97 06/03/22 14:26 Resp 18 06/03/22 14:26 BP 139/79 06/03/22 14:26 BMI result Body Mass Index 43.4 Const: General: cooperative and no acute distress Orientation/consciousness: oriented to person and oriented to place Limitations: no limitations HEENT: Other: Healing laceration to mid forehead consistent with her bumping her head against the wall. Head: Yes normocephalic Ears: external ears normal General nose exam: Normal external nose present Face and sinus: Yes normal facial exam Mouth: Normal oral and palatal mucosa present Throat: Yes posterior oropharynx normal Eyes: General: appearance normal, both eyes and all related structures Pupils: Equal, round and reactive pupils present Neck: Neck: Yes normal visual inspection, Yes no lymphadenopathy, Yes trachea midline and Yes supple Chest: Chest palpation & inspection: normal inspection of the chest and normal palpation of entire chest wall Resp: Effort & Inspection: normal respiratory effort and able to speak in complete sentences Auscultation: clear to auscultation bilaterally Cardio: Rate: regular rate Rhythm: regular rhythm Heart sounds: S1 normal heart sound present, S2 normal heart sound present and no murmurs GI: Inspection: Yes normal to inspection Palpation (GI): Soft to palpation, nontender and no guarding Auscultation: normal bowel sounds : General: Yes no CVA tenderness Back/Spine/Pelvis: Back: no CVA tenderness Skin: Other: Multiple linear lacerations to her left arm, these appear to be healing, none of appear to need suture repair, there is no cellulitis at this time. Neuro: General: oriented to person and oriented to place Cranial nerves: Yes CN's II-XII intact bilaterally and Yes Equal, round and reactive pupils present Cognition (Neuro): normal cognition Motor exam (neuro): 5/5 motor strength present throughout Extrem: Other: Normal except for superficial lacerations to left forearm Psych: Appearance: grossly normal Speech and movement: Normal speech and movement present Affect: normal affect Attitude: cooperative Thought process: Normal thought process present Thought content: Normal thought content present Course Course Course Narrative: 37-year-old female sent to emergency department on a Section 12 for evaluation of suicidal ideation with a plan to overdose, self-harm behavior with smashing her head against the wall and cutting her left forearm who has been depressed for approximately 6 months. The patient's physical examination revealed healing lacerations on her left forearm as well as a healing laceration to her forehead. Did order a COVID-19 and urine drug screen. The patient's medications were reconciled these were ordered by me. 1714: Start physician observation: The patient is on a Section 12 and will be kept here in the emergency department until an appropriate in-patient bed or disposition can be determined. Patient's physical examination is unchanged from her baseline. MDM - Psych Lab Data Labs: Lab Results 06/03/22 Range/Units 15:21 COVID-19 (RAFAL) Negative (Negative) COVID-19 Clin Com See Note Discharge Plan Discharge Clinical Impression: Depression with suicidal ideation, Self-inflicted injury Patient Disposition: Still a Patient Prescriptions: No Action omeprazole 20 mg capsule,delayed release(DR/EC) 20 mg PO DAILY@0630 duloxetine 60 mg capsule,delayed release(DR/EC) 60 mg PO QAM fluticasone propionate 50 mcg/actuation spray,suspension 2 spray intranasal DAILY lithium carbonate 300 mg tablet 1 tab PO DAILY benztropine 0.5 mg tablet 1 tab PO BID haloperidol 5 mg tablet 1 tab PO TID PRN (Reason: Agitation) diphenhydramine HCl [Banophen] 50 mg capsule 2 cap PO BEDTIME trazodone 50 mg tablet 2 tab PO BEDTIME PRN (Reason: Insomnia) cetirizine 10 mg tablet 1 tab PO DAILY prazosin 1 mg capsule 1 cap PO BEDTIME hydroxyzine pamoate 50 mg capsule 1 cap PO BID PRN (Reason: anxiety) topiramate 25 mg tablet 1 tab PO BID prazosin 5 mg capsule 3 cap PO BEDTIME lorazepam 1 mg tablet 1 tab PO TID PRN (Reason: anxiety) ferrous sulfate 325 mg (65 mg iron) tablet,delayed release (DR/EC) 1 tab PO DAILY albuterol sulfate 2.5 mg /3 mL (0.083 %) Solution For Nebulization 2.5 mg INHALATION Q4H PRN (Reason: Shortness Of Breath) acetaminophen 500 mg Tablet 500 mg PO Q6H PRN (Reason: Pain (Scale Score 1-3)) haloperidol decanoate 50 mg/mL Solution 75 mg IM Q28D@1300 28 Days Qty: 1.5 0RF clonidine HCl 0.1 mg tablet 1 tab PO BID PRN (Reason: anxiety) ibuprofen 800 mg tablet 1 tab PO Q8H PRN (Reason: pain) bacitracin 500 unit/gram ointment 1 appl topical BID zolpidem 10 mg tablet 1 tab PO BEDTIME PRN (Reason: insomnia) albuterol sulfate [ProAir HFA] 90 mcg/actuation HFA aerosol inhaler 2 puff inhalation Q4-6H PRN (Reason: Shortness Of Breath) Advair HFA 230-21 mcg/actuation HFA aerosol inhaler 2 puff inhalation BID
[2022-06-03 16:05] LABS: COVID-19 Test Negative (Negative)
--- NOTE | 2022-06-03 16:41 | PHA.MEDREC ---
Pharmacy Consult ? Medication Reconciliation Pharmacy has completed the medication reconciliation.
[2022-06-03 19:38] LABS: Appearance Urine Clear; Color Urine Yellow; Glucose Urine UA Negative (Negative); Leukocyte Esterase Urine Negative (Negative); Nitrite Urine Negative (Negative); PH 6.5 (5.0-9.0); Urine Blood Negative (Negative); Urine Ketones Negative (Negative); Urine Protein Negative (Neg-Trace)
[2022-06-03 20:01] LABS: Amphetamine Screen Urine Not Detected (Not Detect); Barbiturates, Urine Not Detected (Not Detect); Benzodiazepines Screen Urine Not Detected (Not Detect); Cannabinoid Screen Urine POSITIVE (Not Detect); Cocaine Screen Urine Not Detected (Not Detect); Fentanyl, urine POSITIVE (Not Detect); Opiate Screen Urine Not Detected (Not Detect); Phencyclidine Screen Urine Not Detected (Not Detect)
[2022-06-03] MEDS: Benztropine Mesylate 0.5 MG TABLET PO (21:27)
[2022-06-03] MEDS: diphenhydrAMINE HCL 25 MG CAPSULE 100 MG PO (21:27)
[2022-06-03] MEDS: Prazosin HCL 5 MG CAPSULE 15 MG PO (21:28)
[2022-06-03] MEDS: Prazosin HCL 1 MG CAPSULE PO (21:28)
[2022-06-03] MEDS: Topiramate 25 MG TABLET PO (21:29)
[2022-06-03] MEDS: traZODone HCL 100 MG TABLET PO (21:31)
[2022-06-03] MEDS: Zolpidem Tartrate 5 MG TABLET 10 MG PO (21:31)
[2022-06-03 21:38] VITALS: BP 105/61; PULSE 70; RESP 16; TEMP 36.9
--- NOTE | 2022-06-04 06:08 | PC.NURSE ---
Patient slept through the night, no distress observed/reported, behavior non concerning at this time, patient is on one to one for safety observation, medication compliant, disposition per [facility] is section 12 inpatient bed search, VSS, will continue to monitor.
--- NOTE | 2022-06-04 08:10 | PC.NURSE ---
1:1 SITTER AT BEDSIDE REPORTS THAT PT IS HITTING HERSELF AND IS HEARING VOICES. MD AWARE.
[2022-06-04 08:15] VITALS: BP 105/56; PULSE 74; RESP 16; TEMP 36.7; O2SAT 96
[2022-06-04] MEDS: Topiramate 25 MG TABLET PO ×2 (08:17→20:54)
[2022-06-04] MEDS: hydrOXYzine HCL 50 MG TABLET PO (08:17)
[2022-06-04] MEDS: Benztropine Mesylate 0.5 MG TABLET PO ×2 (08:17→20:54)
[2022-06-04] MEDS: Lithium Carbonate 300 MG CAPSULE PO (08:17)
[2022-06-04] MEDS: cloNIDine HCL 0.1 MG TABLET PO (08:18)
[2022-06-04] MEDS: DULoxetine HCl 60 MG CAPSULE.DR PO (08:18)
[2022-06-04] MEDS: Ferrous Sulfate 324 MG TABLET.DR PO (08:18)
[2022-06-04] MEDS: Loratadine 10 MG TABLET PO (08:18)
[2022-06-04] MEDS: HaloperidoL 5 MG TABLET PO ×2 (08:18→20:54)
[2022-06-04] MEDS: Fluticasone/Vilanterol 200/25 BLST.W.DEV 1 PUFF INHALE (09:35)
[2022-06-04] MEDS: Fluticasone Propionate Nasal 16 GM SPRAY 2 SPRAY NOSTRIL-B (09:35)
--- NOTE | 2022-06-04 10:00 | PC.NURSE ---
CARE TEAM (DOUGLAS) AT BEDSIDE, PT AWARE OF PLAN OF CARE.
--- NOTE | 2022-06-04 10:05 | MHC.CARE ---
CARE Team attempted to provide a check in with Pt who stated she was tired.
[2022-06-04 13:09] VITALS: BP 111/64; PULSE 62; RESP 16; TEMP 36.6; O2SAT 96
--- NOTE | 2022-06-04 13:14 | PC.NURSE ---
care team (harlan) at bedside, pt aware of plan of care.
--- NOTE | 2022-06-04 13:54 | PC.NURSE ---
pt is head banging on her room wall and is pulling at her own hair.
--- NOTE | 2022-06-04 13:59 | MHC.CARE ---
CARE Team meets with pt at the request of the Underground Production Foreperson.? Pt is screened for risk in her room in the behavioral health pod of the ED.? She is dressed in hospital attire, appears neat and well groomed, and older than her stated age.? She appears to have lost weight since the last time this teletypewriter operator engaged with her.? She stated that she has not been eating much and has little desire to eat.? H3er affect is flat.? She denies AH at this time but states that she has been experiencing AH more frequently and that her Ah has been command in nature telling her to harm herself.? Pt reports that she has been increasingly engaging in self-harm and has observable horizontal superficial scratches on her forearms in various stages of healing.? She reports that she has been engaging in self-harm on a daily basis and is reluctant to engage in head banging as it will alert staff to her self-harming behaviors.? Instead, she has opted to cut more frequently.? She reports that she looks for razors in the bathrooms and has purchased razors as well. She reports increasing marijuana use that she purchases most frequently from a conveyor maintenance mechanic.? She utilizes this means of obtaining her marijuana when she cannot afford to go to the dispensaries.? Pt is positive for marijuana and Fentanyl. Pt endorses SI with a plan to purchase a couple bottles of Tylenol and ?go somewhere where no one will find me and just do it?.? She reports increasing thoughts of SI where it is occurring on a daily basis.? Pt expressed that she is concerned that she will complete suicide if she is discharged.? This is not expressed in a threatening manner, nor does it sound like conditional SI, pt?s expression of her concerns for her safety appears to be an expression of her concern over her safety.? She is not future oriented and cannot ?see a future for myself or anything.? Pt expressed that she was concerned when she was being transported to this facility.? She stated ?I should have gone to [facility].? I?m afraid you guys will send me home and I?ll kill myself.?? Pt stated, ?I?m not myself and haven?t been myself for 6 months.? This isn?t me.? CARE Team contacted Lilia Ortizig Garcia, radio program director for pt?s long-term.? Mr. Zelaya reports that pt has been purchasing marijuana and pills from a conveyor maintenance mechanic and is concerned that she may be exhibiting withdrawal symptoms.? Pt escalates quickly and is difficult to deescalate.? In speaking with the pt, she reports that she may be experiencing withdrawal symptoms and expressed an interest in stopping her marijuana use all together.? Mr. Zelaya stated that for the past 6 months, pt has been behaving very differently than what the staff at the long-term is used to seeing.? He reports that she is ?Not well?.? He reports that he believes that she will complete suicide if she is discharged and that he is ?scared? she will complete suicide.? He expressed that he believes that she cannot be safe if discharged. Pt appears to be at risk at this time.
[2022-06-04] MEDS: Zolpidem Tartrate 5 MG TABLET 10 MG PO (20:53)
[2022-06-04] MEDS: Prazosin HCL 1 MG CAPSULE PO (20:54)
[2022-06-04] MEDS: traZODone HCL 100 MG TABLET PO (20:54)
[2022-06-04] MEDS: diphenhydrAMINE HCL 25 MG CAPSULE 100 MG PO (20:54)
[2022-06-04 20:57] VITALS: BP 108/57; PULSE 57; RESP 16; O2SAT 99
[2022-06-05] VITALS (7 sets, daily range): BP systolic 92–112; BP diastolic 53–63; PULSE 57–70; RESP 16–20; TEMP 36.6; O2SAT 95–99
[2022-06-05] MEDS: Haloperidol Lactate 5 MG/ML VIAL IM (01:10)
[2022-06-05] MEDS: diphenhydrAMINE HCL 50 MG/ML VIAL IM (01:10)
--- NOTE | 2022-06-05 01:29 | PC.NURSE ---
Patient was found exhibiting self abusive behavior by hitting her head against wall, reporting racing thought, behavior escalating, provider notified/ordered Benadryl 50 mg IM and Haldol 5 mg IM/administered at 0110/patient compliant/pending effect, patient is on one to one observation for safety, disposition section 12 inpatient bed search, no update on bed search, VSS, will continue to monitor.
[2022-06-05] MEDS: Fluticasone Propionate Nasal 16 GM SPRAY 2 SPRAY NOSTRIL-B (08:04)
[2022-06-05] MEDS: Loratadine 10 MG TABLET PO (08:07)
[2022-06-05] MEDS: Ferrous Sulfate 324 MG TABLET.DR PO (08:07)
[2022-06-05] MEDS: Topiramate 25 MG TABLET PO ×2 (08:07→20:00)
[2022-06-05] MEDS: DULoxetine HCl 60 MG CAPSULE.DR PO (08:07)
[2022-06-05] MEDS: Lithium Carbonate 300 MG CAPSULE PO (08:07)
[2022-06-05] MEDS: Fluticasone/Vilanterol 200/25 BLST.W.DEV 1 PUFF INHALE (08:08)
[2022-06-05] MEDS: Benztropine Mesylate 0.5 MG TABLET PO ×2 (09:01→19:59)
--- NOTE | 2022-06-05 09:52 | MHC.CARE ---
Katina Valenzuela called regarding Pt and asked for updated. CARE Team informed her Pt was sleeping when CARE Team attempted to check in with her today. Plan for psychiatry to meet with Pt to weigh in with disposition.
--- NOTE | 2022-06-05 09:52 | MHC.CARE ---
CARE Team attempted to meet with this pt. Pt is sleeping at this time.
--- NOTE | 2022-06-05 10:08 | MHC.CARE ---
CARE Team met with pt for a brief encounter. Pt appears agitated as evidenced by her increased tone and avoidant eye contact. Pt reports to continue to struggle with SI with a plan, means and intent as well as self harming behaviors. Pt reported to be unable to maintain her safety in the community at this time. Pt stated she isn't herself right now. Pt also reported to want to get her medications checked out and possibly modified. She states she feels as if they're not working for her. Pt is advocating to be inpatient.
[2022-06-05] MEDS: LORazepam 1 MG TABLET PO (14:28)
--- NOTE | 2022-06-05 18:51 | MHC.CARE ---
CARE Team met with pt. Pt expresses that she wants to go home and wait for [facility]. She states she is really interested in [facility]. N does not have a clinician until the overnight shift, and pt is willing to wait for N to assesses her and determine if she can be accepted to [facility]. She wants to remain the night but states she may want to return home tomorrow.
[2022-06-05] MEDS: Zolpidem Tartrate 5 MG TABLET 10 MG PO (19:58)
[2022-06-05] MEDS: HaloperidoL 5 MG TABLET PO (19:59)
[2022-06-05] MEDS: traZODone HCL 100 MG TABLET PO (19:59)
[2022-06-05] MEDS: diphenhydrAMINE HCL 25 MG CAPSULE 100 MG PO (20:03)
[2022-06-06] MEDS: Omeprazole 20 MG CAPSULE.DR PO (05:38)
--- NOTE | 2022-06-06 05:40 | PC.NURSE ---
Patient slept through the night, behavior non concerning, patient was upset when she saw other patients going up to M5, per care team report patient is now seeking [facility] support, N clinician did not show up for [facility]SU, current plan seems [facility] bed search or retune back to long term if patients wants, medication compliant, VSS, will continue to monitor.
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
[2022-06-06] MEDS: HaloperidoL 5 MG TABLET PO (09:01)
[2022-06-06] MEDS: LORazepam 1 MG TABLET PO (09:01)
[2022-06-06] MEDS: Fluticasone Propionate Nasal 16 GM SPRAY 2 SPRAY NOSTRIL-B (09:29)
[2022-06-06] MEDS: Fluticasone/Vilanterol 200/25 BLST.W.DEV 1 PUFF INHALE (09:29)
[2022-06-06] MEDS: Benztropine Mesylate 0.5 MG TABLET PO (09:30)
[2022-06-06] MEDS: DULoxetine HCl 60 MG CAPSULE.DR PO (09:30)
[2022-06-06] MEDS: Lithium Carbonate 300 MG CAPSULE PO (09:30)
[2022-06-06] MEDS: Topiramate 25 MG TABLET PO (09:30)
[2022-06-06] MEDS: Loratadine 10 MG TABLET PO (09:31)
[2022-06-06] MEDS: Ferrous Sulfate 324 MG TABLET.DR PO (09:31)
--- NOTE | 2022-06-06 11:24 | PC.NURSE ---
BHN in to bedside for re-eval
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
[2022-06-06 13:41] VITALS: BP 110/71; PULSE 88
[2022-06-06] MEDS: cloNIDine HCL 0.1 MG TABLET PO (13:42)
--- NOTE | 2022-06-06 13:44 | PC.NURSE ---
Plan per N is for pt to go to respite. New covid swab obtained and sent down. Pt reports anxiety at this time, clonidine admin per oct.
[2022-06-06 13:51] LABS: COVID-19 Test Negative (Negative)
== END 2022-06-06 17:06 ==
PROVIDERS: Emergency Provider Emergency Medicine Emergency Medical Services; PCP Pediatrics
DX: R45.851 Suicidal ideations (principal); F33.2 Major depressive disorder, recurrent severe without psychotic features; S51.812D Laceration without foreign body of left forearm, subsequent encounter; X78.9XXD Intentional self-harm by unspecified sharp object, subsequent encounter; R45.1 Restlessness and agitation; Z20.822 Contact with and (suspected) exposure to COVID-19; F17.210 Nicotine dependence, cigarettes, uncomplicated; F12.90 Cannabis use, unspecified, uncomplicated; F43.20 Adjustment disorder, unspecified; F41.9 Anxiety disorder, unspecified; F60.3 Borderline personality disorder; F43.12 Post-traumatic stress disorder, chronic; F25.9 Schizoaffective disorder, unspecified; Z91.52 Personal history of nonsuicidal self-harm; Z79.899 Other long term (current) drug therapy
CPT/HCPCS: 80307; 81003; 87635; 96372; 99285; J1200

== ENCOUNTER 2022-07-28 23:47 | Emergency (ER) | payer OTHER, SELFPAY ==
--- NOTE | 2022-07-28 | ECG_ITS ---
Test Reason : SYNCOPE Blood Pressure : / mmHG Vent. Rate : 091 BPM Atrial Rate : 091 BPM P-R Int : 142 ms QRS Dur : 078 ms QT Int : 392 ms P-R-T Axes : 065 075 033 degrees QTc Int : 482 ms Normal sinus rhythm Nonspecific T wave abnormality Prolonged QT Abnormal ECG No previous ECGs available Referred By: Generic ED Physician Electronically Signed By:LIZET ANN
[2022-07-28 23:50] VITALS: BP 124/78; BP 128/69; PULSE 93; PULSE 94; RESP 16; TEMP 36.7; O2SAT 98; O2SAT 99; BMI 49.4
[2022-07-29 01:06] LABS: Alanine Aminotransferase 9 U/L (0-31); Albumin Level 4.2 g/dL (3.5-5.0); Alkaline Phosphatase 80 U/L (39-117); Anion Gap 13 (12-20); Aspartate Amino Transferase 11 U/L (5-31); Bilirubin Total 0.3 mg/dL (0.0-1.0); Blood Urea Nitrogen 12 mg/dL (9-16); Calcium 9.2 mg/dL (8.4-10.2); Carbon Dioxide 22 mmol/L (22-29); Chloride 106 mmol/L (96-108); Creatinine Clr Calc Pharmacy 101.6; Estimated Glomerular Filt Rate > 60; Glucose Random 135 mg/dL (60-115); Potassium 3.6 mmol/L (3.3-5.1); Sodium 137 mmol/L (135-145); Total Protein 6.6 g/dL (6.5-8.0)
[2022-07-29 03:20] VITALS: BP 99/55; PULSE 77; RESP 16; TEMP 36.9; O2SAT 97
[2022-07-29 04:00] VITALS: BP 101/56; PULSE 84; TEMP 36.4; O2SAT 94
[2022-07-29 04:41] LABS: Basophils Percent Auto 0.2 % (0-2); Eosinophils Absolute Auto 0.1 X10*3/uL (0.0-0.4); Eosinophils Percent Auto 1.2 % (0-4); Hematocrit 35.7 % (37.0-47.0); Hemoglobin 11.8 g/dl (12.0-16.0); Imm Gran Abs Auto 0.03 X10*3/uL (0.00-0.03); Imm Gran Pct Auto 0.3 % (0.0-0.4); Lymphocytes Absolute Auto 2.2 X10*3/uL (1.2-4.9); Lymphocytes Percent Auto 25.3 % (20-40); MANUAL DIFF FLAG NO; Mean Corpuscular HGB Conc 33.1 g/dl (31.0-35.0); Mean Corpuscular Hemoglobin 30.2 pg (27.0-33.0); Mean Corpuscular Volume 91.3 fL (80.0-98.0); Monocytes Absolute Auto 0.5 X10*3/uL (0.1-1.2); Monocytes Percent Auto 5.8 % (2-11); Neutrophils Absolute Auto 5.8 x10*3/uL (2.0-8.3); Neutrophils Percent Auto 67.2 % (45-73); Platelet Count 222 X10*3/uL (160-400); Red Blood Count 3.91 X10*6/uL (4.20-5.50); Red Cell Distribution Width 13.8 % (11.0-16.0); White Blood Count 8.7 X10*3/uL (4.8-10.8)
--- NOTE | 2022-07-29 05:06 | PC.NURSE ---
Patient is alert and oriented. Patient c/o pain to R leg and R breast pain accompanied by dizziness and numbness to the R leg. Patient denies any recent falls. No apparent distress and is resting quietly while watching tv.
[2022-07-29 06:31] VITALS: BP 94/51; PULSE 75; TEMP 37.1; O2SAT 95
--- NOTE | 2022-07-29 07:30 | ED_ITS ---
HPI - General Adult General Chief complaint: Dizziness Stated complaint: arm / leg numbness Time Seen by Provider: 07/29/22 05:16 Source: patient Mode of arrival: EMS Limitations: no limitations History of Present Illness HPI narrative: 37-year-old female who presents emergency department for evaluation of multiple complaints. Patient states she has bumps in her right leg that have been there for several months, she is concerned that the bumps have persisted and she is worried that they may be cancer. She states that she is being evaluated for possible breast cancer and had a recent biopsy. She also states that the right side of her body has been numb for 6 months. She is also complaining of feeling dizzy and lightheaded. She denied nausea, vomiting, fever, chills, chest pain, shortness of breath, frequency, urgency or dysuria. Related Data Home Medications Medication Instructions Recorded Confirmed omeprazole 20 mg capsule,delayed 20 mg PO DAILY@0630 11/29/20 06/03/22 release duloxetine 60 mg capsule,delayed 60 mg PO QAM 08/03/21 06/03/22 release acetaminophen 500 mg tablet 500 mg PO Q6H PRN Pain (Scale 09/01/21 06/03/22 Score 1-3) albuterol sulfate 2.5 mg/3 mL 2.5 mg inhalation Q4H PRN 09/01/21 06/03/22 (0.083 %) solution for nebulization Shortness Of Breath fluticasone propionate 50 2 spray intranasal DAILY 10/03/21 06/03/22 mcg/actuation nasal spray,suspension benztropine 0.5 mg tablet 1 tab PO BID 04/29/22 06/03/22 cetirizine 10 mg tablet 1 tab PO DAILY 04/29/22 06/03/22 diphenhydramine HCl 50 mg capsule 2 cap PO BEDTIME 04/29/22 06/03/22 (Banophen) ferrous sulfate 325 mg (65 mg 1 tab PO DAILY 04/29/22 06/03/22 iron) tablet,delayed release haloperidol 5 mg tablet 1 tab PO TID PRN Agitation 04/29/22 06/03/22 hydroxyzine pamoate 50 mg capsule 1 cap PO BID PRN anxiety 04/29/22 06/03/22 lithium carbonate 300 mg tablet 1 tab PO DAILY 04/29/22 06/03/22 lorazepam 1 mg tablet 1 tab PO TID PRN anxiety 04/29/22 06/03/22 prazosin 1 mg capsule 1 cap PO BEDTIME 04/29/22 06/03/22 prazosin 5 mg capsule 3 cap PO BEDTIME 04/29/22 06/03/22 topiramate 25 mg tablet 1 tab PO BID 04/29/22 06/03/22 trazodone 50 mg tablet 2 tab PO BEDTIME PRN Insomnia 04/29/22 06/03/22 albuterol sulfate 90 mcg/actuation 2 puff inhalation Q4-6H PRN 06/03/22 06/03/22 aerosol inhaler (ProAir HFA) Shortness Of Breath bacitracin 500 unit/gram topical 1 appl topical BID 06/03/22 06/03/22 ointment clonidine HCl 0.1 mg tablet 1 tab PO BID PRN anxiety 06/03/22 06/03/22 fluticasone propionate 230 2 puff inhalation BID 06/03/22 06/03/22 mcg-salmeterol 21 mcg/actuation HFA inhaler (Advair HFA) ibuprofen 800 mg tablet 1 tab PO Q8H PRN pain 06/03/22 06/03/22 zolpidem 10 mg tablet 1 tab PO BEDTIME PRN insomnia 06/03/22 06/03/22 Previous Rx's Medication Instructions Recorded haloperidol decanoate 50 mg/mL 75 mg (1.5 mL) IM Q28D@1300 28 09/22/21 intramuscular solution days #1.5 mL Allergies Allergy/AdvReac Type Severity Reaction Status Date / Time carbamazepine [From TEGRETOL] AdvReac Unknown NAUSEA & Verified 05/15/22 19:31 VOMITING Fish Containing Products AdvReac Stomach Verified 05/15/22 19:31 Upset Review of Systems Review of Systems: Yes all other systems are reviewed and are negative [facility] Past Medical History [facility] Narrative: Social history: She denies tobacco, alcohol and drug use. Medical History Acute post-traumatic stress disorder Adjustment disorder Anxiety Asthma Borderline personality disorder Chronic post-traumatic stress disorder (PTSD) COPD (chronic obstructive pulmonary disease) Depression GERD (gastroesophageal reflux disease) Increased BMI Injury, self-inflicted Intentional self-harm PTSD (post-traumatic stress disorder) Recurrent major depression-severe Schizoaffective disorder Self-harming behavior Suicidal ideation Suicidal ideation Social History Social History Household Members: Other Household Members Other:: nursing home Housing: Other Housing Other:: nursing home Do you presently have visiting nurse or other home services: No Alcohol intake: never Patient Tobacco Use Status: Never used Tobacco Tobacco use type: Cigarette Cigarette Packs Per Day: 1 Cigarettes Per Day: 20.0 Years Smoked: 17 Smoked in Last 30 Days: Yes e-Cigarette/Vaping Use: Never Used Second Hand Smoke Exposure: Yes Substance Use Type: Marijuana Advance Directives: No Advance Directives Information Provided: Yes service: No Sexual orientation: Don't Know Physical Exam ED Vital Signs: Vital Signs - 24 hr 07/28/22 23:50 07/29/22 03:20 07/29/22 04:00 Temperature 98.0 F 98.5 F 97.5 F Pulse Rate 93 77 84 Respiratory Rate 16 16 Blood Pressure 128/69 99/55 L 101/56 L Pulse Oximetry 99 97 94 Oxygen Delivery Method Room Air Room Air Room Air 07/29/22 06:31 Temperature 98.8 F Pulse Rate 75 Respiratory Rate Blood Pressure 94/51 L Pulse Oximetry 95 Oxygen Delivery Method Room Air BMI result Body Mass Index 49.4 Const General: cooperative and no acute distress Orientation/consciousness: oriented to person and oriented to place Limitations: no limitations HENMT Head: Yes normal to inspection, Yes normocephalic and Yes atraumatic Ears: external ears normal General nose exam: Normal external nose present Face and sinus: Yes normal facial exam Mouth: Normal oral and palatal mucosa present Throat: Yes posterior oropharynx normal Eyes General: appearance normal, both eyes and all related structures Pupils: Equal, round and reactive pupils present Neck Neck: Yes normal visual inspection, Yes no lymphadenopathy, Yes trachea midline and Yes supple Chest Chest palpation & inspection: normal inspection of the chest and normal palpation of entire chest wall Resp Effort & Inspection: normal respiratory effort and able to speak in complete sentences Auscultation: clear to auscultation bilaterally Cardio Rate: regular rate Rhythm: regular rhythm Heart sounds: S1 normal heart sound present, S2 normal heart sound present and no murmurs GI Inspection: Yes normal to inspection Palpation (GI): Soft to palpation, nontender and no guarding Auscultation: normal bowel sounds General: Yes no CVA tenderness Back/Spine/Pelvis Back: no CVA tenderness Skin General skin exam: no rashes or lesions noted Neuro General: oriented to person and oriented to place Cranial nerves: Yes CN's II-XII intact bilaterally and Yes Equal, round and reactive pupils present Cognition (Neuro): normal cognition Motor exam (neuro): 5/5 motor strength present throughout Extrem Other: Patient has multiple healing self-inflicted lacerations to her upper extremities, the patient's lower extremities are symmetric in size, neurovascularly intact the patient localize 2 bumps in her right medial thigh which I think are small lymph nodes these are nontender. Psych Appearance: grossly normal Speech and movement: Normal speech and movement present Affect: normal affect Attitude: cooperative Thought process: Normal thought process present Thought content: Normal thought content present Course Course Course Narrative: 37-year-old female who presents emergency department for evaluation of multiple complaints including bumps in her right thigh as well as numbness of her body for several months and dizziness. The patient's physical examination did reveal some nontender lymph nodes in her right medial thigh otherwise her exam was unremarkable. Patient's laboratory evaluation was also unremarkable. At this time, I do not think patient has any acute medical conditions I did discuss this with her. The patient was reassured and discharged home. Medical Decision Making Lab Data Result Diagrams: 07/29/22 04:36 07/29/22 00:22 Labs: Lab Results 07/29/22 07/29/22 Range/Units 00:22 04:36 WBC 8.7 (4.8-10.8) X10*3/uL RBC 3.91 L (4.20-5.50) X10*6/uL Hgb 11.8 L (12.0-16.0) g/dl Hct 35.7 L (37.0-47.0) % MCV 91.3 (80.0-98.0) fL MCH 30.2 (27.0-33.0) pg MCHC 33.1 (31.0-35.0) g/dl RDW 13.8 (11.0-16.0) % Plt Count 222 (160-400) X10*3/uL MPV 11.0 (9.4-12.3) fL Immature Gran % (Auto) 0.3 (0.0-0.4) % Neut % (Auto) 67.2 (45-73) % Lymph % (Auto) 25.3 (20-40) % [place] % (Auto) 5.8 (2-11) % Eos % (Auto) 1.2 (0-4) % Baso % (Auto) 0.2 (0-2) % Lymph # (Auto) 2.2 (1.2-4.9) X10*3/uL [place] # (Auto) 0.5 (0.1-1.2) X10*3/uL Eos # (Auto) 0.1 (0.0-0.4) X10*3/uL Baso # (Auto) 0.0 (0.0-0.2) X10*3/uL Abs Immat Gran (auto) 0.03 (0.00-0.03) X10*3/uL Absolute Neuts (auto) 5.8 (2.0-8.3) x10*3/uL Absolute Nucleated RBC 0.000 (0.0-0.012) X10*3/uL Nucleated RBC % (auto) 0.0 (0.0-0.2) /100WBC Sodium 137 (135-145) mmol/L Potassium 3.6 (3.3-5.1) mmol/L Chloride 106 (96-108) mmol/L Carbon Dioxide 22 (22-29) mmol/L Anion Gap 13 (12-20) BUN 12 (9-16) mg/dL Creatinine 0.85 (0.5-1.4) mg/dL Estim Creat Clear Calc 101.6 Estimated GFR > 60 Random Glucose 135 H (60-115) mg/dL Calcium 9.2 (8.4-10.2) mg/dL Total Bilirubin 0.3 (0.0-1.0) mg/dL AST 11 (5-31) U/L ALT 9 (0-31) U/L Alkaline Phosphatase 80 (39-117) U/L Total Protein 6.6 (6.5-8.0) g/dL Albumin 4.2 (3.5-5.0) g/dL Discharge Plan Discharge Clinical Impression: Numbness, Lymphadenopathy Patient Disposition: Home, Self-Care Additional Instructions: At this time I do not think that the lumps are significant, you should follow-up with your doctor for re-evaluation. Follow-up with your doctor in 2 days. Please return to the emergency department if your symptoms get worse or if you develop any symptoms that are concerning to you. Prescriptions: No Action omeprazole 20 mg capsule,delayed release(DR/EC) 20 mg PO DAILY@0630 duloxetine 60 mg capsule,delayed release(DR/EC) 60 mg PO QAM fluticasone propionate 50 mcg/actuation spray,suspension 2 spray intranasal DAILY lithium carbonate 300 mg tablet 1 tab PO DAILY benztropine 0.5 mg tablet 1 tab PO BID haloperidol 5 mg tablet 1 tab PO TID PRN (Reason: Agitation) diphenhydramine HCl [Banophen] 50 mg capsule 2 cap PO BEDTIME trazodone 50 mg tablet 2 tab PO BEDTIME PRN (Reason: Insomnia) cetirizine 10 mg tablet 1 tab PO DAILY prazosin 1 mg capsule 1 cap PO BEDTIME hydroxyzine pamoate 50 mg capsule 1 cap PO BID PRN (Reason: anxiety) topiramate 25 mg tablet 1 tab PO BID prazosin 5 mg capsule 3 cap PO BEDTIME lorazepam 1 mg tablet 1 tab PO TID PRN (Reason: anxiety) ferrous sulfate 325 mg (65 mg iron) tablet,delayed release (DR/EC) 1 tab PO DAILY albuterol sulfate 2.5 mg /3 mL (0.083 %) Solution For Nebulization 2.5 mg INHALATION Q4H PRN (Reason: Shortness Of Breath) acetaminophen 500 mg Tablet 500 mg PO Q6H PRN (Reason: Pain (Scale Score 1-3)) haloperidol decanoate 50 mg/mL Solution 75 mg IM Q28D@1300 28 Days Qty: 1.5 0RF clonidine HCl 0.1 mg tablet 1 tab PO BID PRN (Reason: anxiety) ibuprofen 800 mg tablet 1 tab PO Q8H PRN (Reason: pain) bacitracin 500 unit/gram ointment 1 appl topical BID zolpidem 10 mg tablet 1 tab PO BEDTIME PRN (Reason: insomnia) albuterol sulfate [ProAir HFA] 90 mcg/actuation HFA aerosol inhaler 2 puff inhalation Q4-6H PRN (Reason: Shortness Of Breath) Advair HFA 230-21 mcg/actuation HFA aerosol inhaler 2 puff inhalation BID
== END 2022-07-29 07:57 | disposition home or self-care (01) ==
PROVIDERS: Emergency Provider Emergency Medicine Emergency Medical Services; PCP Pediatrics
DX: R20.0 Anesthesia of skin (principal); R59.1 Generalized enlarged lymph nodes; R42 Dizziness and giddiness; F25.1 Schizoaffective disorder, depressive type; Z79.899 Other long term (current) drug therapy
CPT/HCPCS: 36415; 80053; 85025; 93005; 99283; 99285

== ENCOUNTER 2022-08-07 18:49 | Emergency (ER) | payer OTHER, SELFPAY ==
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
[2022-08-07 19:10] VITALS: BP 133/97; PULSE 101; O2SAT 100; BMI 32.8
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
[2022-08-07 19:17] VITALS: BP 128/80; PULSE 91; TEMP 37; O2SAT 99
--- NOTE | 2022-08-07 20:02 | PC.NURSE ---
Discharge instructions reviewed with pt. Pt verbalizes understanding.
== END 2022-08-07 20:03 | disposition home or self-care (01) ==
PROVIDERS: Emergency Provider Emergency Medicine
DX: F41.1 Generalized anxiety disorder (principal); F43.0 Acute stress reaction; F17.210 Nicotine dependence, cigarettes, uncomplicated; Z71.6 Tobacco abuse counseling
CPT/HCPCS: 99282; 99283

== ENCOUNTER 2022-08-09 13:08 | Emergency (ER) | payer OTHER, SELFPAY ==
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
[2022-08-09 13:34] VITALS: BP 132/74; BP 136/91; PULSE 83; PULSE 90; RESP 16; TEMP 36.8; O2SAT 96; O2SAT 99; BMI 48.4
[2022-08-09 13:57] LABS: COVID-19 Test Positive (Negative); IDNOW Serial# BCCEAD1C
[2022-08-09 22:53] VITALS: BP 113/66; PULSE 64; RESP 18; TEMP 36.6; O2SAT 96
[2022-08-10 00:41] VITALS: BP 113/55; PULSE 65; RESP 16; TEMP 36.7; O2SAT 95
[2022-08-10 01:06] LABS: Amphetamine Screen Urine Not Detected (Not Detect); Barbiturates, Urine Not Detected (Not Detect); Benzodiazepines Screen Urine Not Detected (Not Detect); Cannabinoid Screen Urine POSITIVE (Not Detect); Cocaine Screen Urine Not Detected (Not Detect); Fentanyl, urine POSITIVE (Not Detect); Opiate Screen Urine Not Detected (Not Detect); Phencyclidine Screen Urine Not Detected (Not Detect)
--- NOTE | 2022-08-10 03:09 | PC.NURSE ---
Pt reporting nausea and generalized not feeling good. Likely related to her COVID-19 diagnosis. Pt also appeared very anxious and worked up. Pt was medicated per MAR. No new orders at this time.
[2022-08-10 07:47] VITALS: BP 109/67; PULSE 63; RESP 18; TEMP 37; O2SAT 96
--- NOTE | 2022-08-10 08:08 | PC.NURSE ---
pt is a/o x 4 no sob/michael noted speaks in full sentences lungs - insp wheezing all lobes. c/o 6/10 chest wall pain with inspiration. pt has 1:1 sitter at bedside. pt is aware of plan of care.
== END 2022-08-10 09:16 | disposition home or self-care (01) ==
PROVIDERS: Nurse Practitioner Family; Emergency Provider Student in an Organized Health Care Education/Training Program; PCP Pediatrics
DX: U07.1 COVID-19 (principal); F33.1 Major depressive disorder, recurrent, moderate; R45.851 Suicidal ideations; F41.1 Generalized anxiety disorder; F43.0 Acute stress reaction; F17.210 Nicotine dependence, cigarettes, uncomplicated; Z71.6 Tobacco abuse counseling; Z79.899 Other long term (current) drug therapy
CPT/HCPCS: 80307; 87635; 96372; 99285

== ENCOUNTER 2022-08-10 21:04 | Emergency (ER) | payer OTHER, SELFPAY ==
[2022-08-10] MEDS: OLANZapine 10 MG VIAL IM (21:19)
[2022-08-10 21:30] VITALS: BP 111/77; BP 128/78; PULSE 82; PULSE 89; RESP 18; TEMP 37; O2SAT 96; O2SAT 97; BMI 48.4
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
[2022-08-10 21:50] VITALS: BP 111/74; PULSE 73; RESP 16; O2SAT 97
[2022-08-10 22:04] VITALS: BP 107/73; PULSE 62; RESP 15; O2SAT 98
[2022-08-10 22:19] VITALS: BP 113/71; PULSE 66; RESP 14; O2SAT 98
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
[2022-08-11 01:40] VITALS: RESP 16
[2022-08-11] MEDS: DULoxetine HCl 60 MG CAPSULE.DR PO (08:10)
[2022-08-11] MEDS: Omeprazole 20 MG CAPSULE.DR PO (08:10)
[2022-08-11] MEDS: Albuterol Sulfate 90 MCG 8 GM INHALER 2 PUFF INHALE (08:10)
[2022-08-11] MEDS: Ferrous Sulfate 324 MG TABLET.DR PO (08:11)
[2022-08-11] MEDS: Lithium Carbonate 300 MG CAPSULE PO (08:11)
[2022-08-11] MEDS: Acetaminophen 325 MG TABLET 650 MG PO ×2 (08:11→17:16)
[2022-08-11] MEDS: Loratadine 10 MG TABLET PO (08:11)
[2022-08-11] MEDS: Benztropine Mesylate 0.5 MG TABLET PO (08:11)
[2022-08-11] MEDS: Topiramate 25 MG TABLET PO (08:11)
[2022-08-11 08:14] VITALS: RESP 20
[2022-08-11 15:24] VITALS: BP 107/62; PULSE 64; RESP 16; TEMP 36.6; O2SAT 97
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
--- NOTE | 2022-08-11 18:12 | MHC.CARE ---
Pt seen by psychiatry. Recommendation is for inpt psychiatric admission at this time. See CARE team Mental Status Update for more information.
--- NOTE | 2022-08-11 19:40 | PC.NURSE ---
Review discharge instructions with pt. pt verbalized understanding. Report to NINA Pearson
== END 2022-08-11 19:51 | disposition home or self-care (01) ==
PROVIDERS: Emergency Provider Internal Medicine
DX: U07.1 COVID-19 (principal); S51.812A Laceration without foreign body of left forearm, initial encounter; S51.811A Laceration without foreign body of right forearm, initial encounter; X78.9XXA Intentional self-harm by unspecified sharp object, initial encounter; F60.3 Borderline personality disorder; F43.12 Post-traumatic stress disorder, chronic; R45.851 Suicidal ideations; F25.1 Schizoaffective disorder, depressive type; F17.210 Nicotine dependence, cigarettes, uncomplicated; F12.90 Cannabis use, unspecified, uncomplicated; E66.9 Obesity, unspecified; Z68.42 Body mass index [BMI] 45.0-49.9, adult; Z79.899 Other long term (current) drug therapy; Y93.9 Activity, unspecified; Y92.049 Unspecified place in boarding-house as the place of occurrence of the external cause; Y99.9 Unspecified external cause status
CPT/HCPCS: 12031; 94640; 99285

== ENCOUNTER 2022-08-14 11:42 | Emergency (ER) | payer OTHER, SELFPAY ==
[2022-08-14 11:47] VITALS: BP 120/79; PULSE 91; RESP 18; TEMP 37.2; O2SAT 99; BMI 45.7
--- NOTE | 2022-08-14 12:15 | ED.PSYCH ---
HPI - Psych General Chief Complaint: Psychiatric Symptoms Stated Complaint: SI Time Seen by Provider: 08/14/22 12:13 Source: patient and EMS Mode of arrival: EMS Limitations: no limitations History of Present Illness HPI Narrative: 37 yo female history of schizoaffective disorder, PTSD, GERD, obesity, borderline personality disorder who engages in cutting behaviors presents to the ER for evaluation of worsening suicidal ideation for the last 3 or 4 days. She states she has increased stressors at her skilled nursing. She states the client there is picking on her, telling her she should of been aborted, telling her she should just kill herself. She has been cutting deeper and deeper. She has multiple lacerations on her bilateral forearms that required staple closure. She knows that if she goes back home she is going to kill herself. She does not feel safe. She is thinking about either hang herself or slitting her wrists. She wants to be admitted to the hospital and does not feel safe at home. MD complaint: suicidal ideation and feels depressed Onset (ago): day(s) (4) Duration: constant and getting worse History of same: Yes Relieving factors: therapy and other Exacerbating factors: other (stress) Context: significant life stressor Associated psychiatric symptoms: depression and suicidal ideation Associated symptoms: other (Decreased p.o. intake, insomnia) Treatments prior to arrival: placed on mental health hold If self harm: admits thoughts of self harm, has plan, has acted on plan and self-inflicted trauma Related Data Home Medications Medication Instructions Recorded Confirmed acetaminophen 500 mg tablet 1 tab PO Q6H PRN pain 08/14/22 08/14/22 albuterol sulfate 90 mcg/actuation 2 puff inhalation BID PRN Wheezing 08/14/22 08/14/22 aerosol inhaler (ProAir HFA) ammonium lactate 12 % topical cream 1 appl topical BID PRN Dry Skin 08/14/22 08/14/22 bacitracin 500 unit/gram topical 1 appl topical BID PRN Wound 08/14/22 08/14/22 ointment Healing benzonatate 100 mg capsule 1 cap PO TID PRN cough 08/14/22 08/14/22 benztropine 0.5 mg tablet 1 tab PO BID 08/14/22 08/14/22 clonidine HCl 0.1 mg tablet 1 tab PO BID PRN anxiety 08/14/22 08/14/22 diphenhydramine HCl 50 mg capsule 2 cap PO BEDTIME 08/14/22 08/14/22 (Banophen) duloxetine 60 mg capsule,delayed 1 cap PO QAM 08/14/22 08/14/22 release ferrous sulfate 325 mg (65 mg 1 tab PO QAM 08/14/22 08/14/22 iron) tablet,delayed release fluticasone propionate 230 2 puff inhalation BID 08/14/22 08/14/22 mcg-salmeterol 21 mcg/actuation HFA inhaler (Advair HFA) haloperidol 5 mg tablet 1 tab PO TID PRN Dry Skin 08/14/22 08/14/22 haloperidol decanoate 100 mg/mL 0.75 ml IM QWEEK 08/14/22 08/14/22 intramuscular solution hydroxyzine pamoate 50 mg capsule 1 cap PO BID PRN Anxiety 08/14/22 08/14/22 lithium carbonate 300 mg tablet 1 tab PO BID 08/14/22 08/14/22 lorazepam 1 mg tablet 1 tab PO TID PRN anxiety 08/14/22 08/14/22 nicotine (polacrilex) 2 mg gum 2 mg buccal Q2H PRN Smoking 08/14/22 08/14/22 Cessation omeprazole 20 mg tablet,delayed 20 mg PO DAILY 08/14/22 08/14/22 release ondansetron HCl 4 mg tablet 1 tab PO Q6H PRN nausea/vomiting 08/14/22 08/14/22 prazosin 1 mg capsule 1 cap PO BEDTIME 08/14/22 08/14/22 prazosin 5 mg capsule 3 cap PO BEDTIME 08/14/22 08/14/22 trazodone 50 mg tablet 2 tab PO BEDTIME PRN insomnia 08/14/22 08/14/22 zolpidem 10 mg tablet 1 tab PO BEDTIME 08/14/22 08/14/22 Allergies Allergy/AdvReac Type Severity Reaction Status Date / Time carbamazepine [From TEGRETOL] AdvReac Unknown NAUSEA & Verified 05/15/22 19:31 VOMITING Fish Containing Products AdvReac Stomach Verified 05/15/22 19:31 Upset Review of Systems Review of Systems: Constitutional: No Fever, No Chills ENT/Mouth: No sore throat, No Rhinorrhea Cardiovascular: No Chest Pain, No SOB, No Orthopnea, No Edema Respiratory: No Cough, No Sputum, No Wheezing, No dyspnea Gastrointestinal: +Nausea, No Vomiting, No Diarrhea, No abdominal Pain Genitourinary: No Dysuria, No Urinary Frequency, No Hematuria Musculoskeletal: No joint pain, No Myalgias Skin: +Skin Lesions, No rash Neuro: + Weakness, No Numbness, No Dizziness, No Headache Psych: + Anxiety/Panic, + Depression, +SI, No HI, No AH, No VH Heme/Lymph: No Bruising, No Lymphadenopathy Endocrine: No Polyuria, No Polydipsia PMFSH Past Medical History Medical History Acute post-traumatic stress disorder Adjustment disorder Anxiety Asthma Borderline personality disorder Chronic post-traumatic stress disorder (PTSD) COPD (chronic obstructive pulmonary disease) Depression GERD (gastroesophageal reflux disease) Increased BMI Injury, self-inflicted Intentional self-harm PTSD (post-traumatic stress disorder) Recurrent major depression-severe Schizoaffective disorder Self-harming behavior Suicidal ideation Suicidal ideation Social History Social History Household Members: Other Household Members Other:: skilled nursing Housing: Other Housing Other:: skilled nursing Do you presently have visiting nurse or other home services: No Alcohol intake: unknown Patient Tobacco Use Status: Never used Tobacco Tobacco use type: Cigarette Cigarette Packs Per Day: 1 Cigarettes Per Day: 20.0 Years Smoked: 17 Smoked in Last 30 Days: No e-Cigarette/Vaping Use: Never Used Second Hand Smoke Exposure: Yes Use of substances other than those prescribed or required for medical reasons: Unknown Substance Use Type: Marijuana Advance Directives: No Advance Directives Information Provided: No Healthcare Proxy: No Guardian: No Patient : No service: No Sexual orientation: Don't Know Physical Exam Vital Signs: Vital Signs: Last Vital Signs Temp 99.0 F 08/14/22 11:47 Pulse 91 08/14/22 11:47 Resp 16 08/14/22 14:00 BP 120/79 08/14/22 11:47 Pulse Ox 99 08/14/22 11:47 O2 Del Method 08/14/22 11:47 BMI result Body Mass Index 45.7 Appearance: Alert. Oriented X3. No acute distress. Eyes: Pupils equal, round and reactive to light. ENT: Pharynx normal. Neck: Normal inspection. Neck supple. CVS: Normal heart rate and rhythm. Pulses normal. Respiratory: No respiratory distress. Breath sounds normal. Abdomen: Soft and nontender. +BS x4 Skin: Skin warm and dry. Normal skin color. Normal skin turgor. No rashes. Extremities: No lower extremity edema. Neuro: Oriented X 3. No motor deficit. No sensory deficit. CN II-XII intact. Depressed mood, suicidal, Course Course Course Narrative: 37 y/o female with history of schizoaffective disorder, PTSD, GERD, obesity, borderline personality disorder who engages in cutting behaviors presenting with worsening depression and SI. She does not feel safe. She says even if I say I am ready to go home, don't believe me. I need to go inpatient. Will get medical clearance and have her be seen by CARE Team. Reevaluation(s) Reevaluation #1: Patient found to be COVID+. SPo2 99% on RA. Physician observation started at 15:21. Patient placed in physician observation because patient is awaiting CARE team evaluation for the possible need of inpatient psych admission. At the time observation was started patient's vital signs were stable. Patient is alert and oriented. Neuro exam is non-focal. CV: RRR and lungs are clear. Will continue to monitor. Medications Administered Generic Name Dose Route Start Last Admin Trade Name Freq PRN Reason Stop Dose Admin Duloxetine HCl 60 mg 08/14/22 13:45 08/14/22 14:27 Duloxetine Hcl 60 Mg Capsule.Dr PO Not Given DAILY SULEIMAN Ferrous Sulfate 324 mg 08/14/22 14:23 08/14/22 14:27 Ferrous Sulfate 324 Mg Tablet.Dr PO Not Given DAILY SULEIMAN Discontinued Medications Generic Name Dose Route Start Last Admin Trade Name Freq PRN Reason Stop Dose Admin Lorazepam 2 mg 08/14/22 12:13 08/14/22 12:19 Lorazepam 1 Mg Tablet PO 08/14/22 12:14 2 mg ONCE ONE Administration Medical Decision Making Lab Data Result Diagrams: 08/14/22 13:45 08/14/22 13:45 Labs: Lab Results 08/14/22 08/14/22 08/14/22 Range/Units 13:42 13:45 13:45 WBC 7.2 (4.8-10.8) X10*3/uL RBC 4.27 (4.20-5.50) X10*6/uL Hgb 12.8 (12.0-16.0) g/dl Hct 41.4 (37.0-47.0) % MCV 97.0 (80.0-98.0) fL MCH 30.0 (27.0-33.0) pg MCHC 30.9 L (31.0-35.0) g/dl RDW 13.5 (11.0-16.0) % Plt Count 174 (160-400) X10*3/uL MPV 11.6 (9.4-12.3) fL Immature Gran % (Auto) 0.4 (0.0-0.4) % Neut % (Auto) 69.7 (45-73) % Lymph % (Auto) 23.8 (20-40) % Nolan % (Auto) 5.4 (2-11) % Eos % (Auto) 0.4 (0-4) % Baso % (Auto) 0.3 (0-2) % Lymph # (Auto) 1.7 (1.2-4.9) X10*3/uL Nolan # (Auto) 0.4 (0.1-1.2) X10*3/uL Eos # (Auto) 0.0 (0.0-0.4) X10*3/uL Baso # (Auto) 0.0 (0.0-0.2) X10*3/uL Abs Immat Gran (auto) 0.03 (0.00-0.03) X10*3/uL Absolute Neuts (auto) 5.0 (2.0-8.3) x10*3/uL Absolute Nucleated RBC 0.000 (0.0-0.012) X10*3/uL Nucleated RBC % (auto) 0.0 (0.0-0.2) /100WBC Sodium 137 (135-145) mmol/L Potassium 4.2 (3.3-5.1) mmol/L Chloride 110 H (96-108) mmol/L Carbon Dioxide 21 L (22-29) mmol/L Anion Gap 10 L (12-20) BUN 13 (9-16) mg/dL Creatinine 0.77 (0.5-1.4) mg/dL Estim Creat Clear Calc 120.2 Estimated GFR > 60 Random Glucose 111 (60-115) mg/dL Calcium 9.3 (8.4-10.2) mg/dL Total Bilirubin 0.3 (0.0-1.0) mg/dL Direct Bilirubin < 0.2 (0.0-0.5) mg/dL AST 11 (5-31) U/L ALT 9 (0-31) U/L Alkaline Phosphatase 60 (39-117) U/L Total Protein 6.7 (6.5-8.0) g/dL Albumin 4.2 (3.5-5.0) g/dL Lipase 13 (8-78) U/L Beta HCG, Quant < 2 mIU/mL [place] (0.60-1.20) mmol/L Ethyl Alcohol < 10 mg/dL Influenza Type A (PCR) NEGATIVE (Negative) Influenza Type B (PCR) NEGATIVE (Negative) RSV RNA Qual (PCR) NEGATIVE (Negative) SARS-CoV-2 RNA (RT-PCR) POSITIVE A (Negative) 08/14/22 Range/Units 14:44 WBC (4.8-10.8) X10*3/uL RBC (4.20-5.50) X10*6/uL Hgb (12.0-16.0) g/dl Hct (37.0-47.0) % MCV (80.0-98.0) fL MCH (27.0-33.0) pg MCHC (31.0-35.0) g/dl RDW (11.0-16.0) % Plt Count (160-400) X10*3/uL MPV (9.4-12.3) fL Immature Gran % (Auto) (0.0-0.4) % Neut % (Auto) (45-73) % Lymph % (Auto) (20-40) % Nolan % (Auto) (2-11) % Eos % (Auto) (0-4) % Baso % (Auto) (0-2) % Lymph # (Auto) (1.2-4.9) X10*3/uL [place] # (Auto) (0.1-1.2) X10*3/uL Eos # (Auto) (0.0-0.4) X10*3/uL Baso # (Auto) (0.0-0.2) X10*3/uL Abs Immat Gran (auto) (0.00-0.03) X10*3/uL Absolute Neuts (auto) (2.0-8.3) x10*3/uL Absolute Nucleated RBC (0.0-0.012) X10*3/uL Nucleated RBC % (auto) (0.0-0.2) /100WBC Sodium (135-145) mmol/L Potassium (3.3-5.1) mmol/L Chloride (96-108) mmol/L Carbon Dioxide (22-29) mmol/L Anion Gap (12-20) BUN (9-16) mg/dL Creatinine (0.5-1.4) mg/dL Estim Creat Clear Calc Estimated GFR Random Glucose (60-115) mg/dL Calcium (8.4-10.2) mg/dL Total Bilirubin (0.0-1.0) mg/dL Direct Bilirubin (0.0-0.5) mg/dL AST (5-31) U/L ALT (0-31) U/L Alkaline Phosphatase (39-117) U/L Total Protein (6.5-8.0) g/dL Albumin (3.5-5.0) g/dL Lipase (8-78) U/L Beta HCG, Quant mIU/mL [place] 0.40 L (0.60-1.20) mmol/L Ethyl Alcohol mg/dL Influenza Type A (PCR) (Negative) Influenza Type B (PCR) (Negative) RSV RNA Qual (PCR) (Negative) SARS-CoV-2 RNA (RT-PCR) (Negative) Discharge Plan Discharge Clinical Impression: Suicidal ideation Patient Disposition: Still a Patient Prescriptions: No Action benztropine 0.5 mg tablet 1 tab PO BID haloperidol 5 mg tablet 1 tab PO TID PRN (Reason: Dry Skin) diphenhydramine HCl [Banophen] 50 mg capsule 2 cap PO BEDTIME prazosin 1 mg capsule 1 cap PO BEDTIME hydroxyzine pamoate 50 mg capsule 1 cap PO BID PRN (Reason: Anxiety) zolpidem 10 mg tablet 1 tab PO BEDTIME ferrous sulfate 325 mg (65 mg iron) tablet,delayed release (DR/EC) 1 tab PO QAM lithium carbonate 300 mg tablet 1 tab PO BID duloxetine 60 mg capsule,delayed release(DR/EC) 1 cap PO QAM clonidine HCl 0.1 mg tablet 1 tab PO BID PRN (Reason: anxiety) trazodone 50 mg tablet 2 tab PO BEDTIME PRN (Reason: insomnia) haloperidol decanoate 100 mg/mL solution 0.75 ml IM QWEEK ondansetron HCl 4 mg tablet 1 tab PO Q6H PRN (Reason: nausea/vomiting) bacitracin 500 unit/gram ointment 1 appl topical BID PRN (Reason: Wound Healing) acetaminophen 500 mg tablet 1 tab PO Q6H PRN (Reason: pain) prazosin 5 mg capsule 3 cap PO BEDTIME benzonatate 100 mg capsule 1 cap PO TID PRN (Reason: cough) ammonium lactate 12 % cream 1 appl TOPICAL BID PRN (Reason: Dry Skin) lorazepam 1 mg tablet 1 tab PO TID PRN (Reason: anxiety) albuterol sulfate [ProAir HFA] 90 mcg/actuation HFA aerosol inhaler 2 puff inhalation BID PRN (Reason: Wheezing) Advair HFA 230-21 mcg/actuation HFA aerosol inhaler 2 puff inhalation BID nicotine (polacrilex) 2 mg Gum 2 mg BUCCAL Q2H PRN (Reason: Smoking Cessation) omeprazole 20 mg Tablet,Delayed Release (Dr/Ec) 20 mg PO DAILY Interventions: [place]-Suicide Risk Severity Scale Last Done: 08/14/22 11:50
[2022-08-14] MEDS: LORazepam 1 MG TABLET 2 MG PO (12:19)
[2022-08-14 13:49] LABS: MANUAL DIFF FLAG NO
[2022-08-14 13:52] LABS: Basophils Percent Auto 0.3 % (0-2); Eosinophils Percent Auto 0.4 % (0-4); Hematocrit 41.4 % (37.0-47.0); Hemoglobin 12.8 g/dl (12.0-16.0); Imm Gran Abs Auto 0.03 X10*3/uL (0.00-0.03); Imm Gran Pct Auto 0.4 % (0.0-0.4); Lymphocytes Absolute Auto 1.7 X10*3/uL (1.2-4.9); Lymphocytes Percent Auto 23.8 % (20-40); Mean Corpuscular HGB Conc 30.9 g/dl (31.0-35.0); Mean Platelet Volume 11.6 fL (9.4-12.3); Monocytes Absolute Auto 0.4 X10*3/uL (0.1-1.2); Monocytes Percent Auto 5.4 % (2-11); Neutrophils Percent Auto 69.7 % (45-73); Platelet Count 174 X10*3/uL (160-400); Red Blood Count 4.27 X10*6/uL (4.20-5.50); Red Cell Distribution Width 13.5 % (11.0-16.0); White Blood Count 7.2 X10*3/uL (4.8-10.8)
[2022-08-14 14:00] VITALS: RESP 16
[2022-08-14 14:19] LABS: Alanine Aminotransferase 9 U/L (0-31); Albumin Level 4.2 g/dL (3.5-5.0); Alkaline Phosphatase 60 U/L (39-117); Anion Gap 10 (12-20); Aspartate Amino Transferase 11 U/L (5-31); Bilirubin Direct < 0.2 mg/dL (0.0-0.5); Bilirubin Total 0.3 mg/dL (0.0-1.0); Blood Urea Nitrogen 13 mg/dL (9-16); Calcium 9.3 mg/dL (8.4-10.2); Carbon Dioxide 21 mmol/L (22-29); Chloride 110 mmol/L (96-108); Creatinine Clr Calc Pharmacy 120.2; Estimated Glomerular Filt Rate > 60; Ethanol < 10 mg/dL; Glucose Random 111 mg/dL (60-115); HCG Quantitative < 2 mIU/mL; Lipase 13 U/L (8-78); Potassium 4.2 mmol/L (3.3-5.1); Sodium 137 mmol/L (135-145); Total Protein 6.7 g/dL (6.5-8.0)
[2022-08-14 15:05] LABS: Influenza A PCR NEGATIVE (Negative); Influenza B PCR NEGATIVE (Negative); Resp Syncy Virus RNA Qual PCR NEGATIVE (Negative); SARS COV2 PCR INHOUSE POSITIVE (Negative)
[2022-08-14 17:39] LABS: Appearance Urine Clear; Color Urine Yellow; Glucose Urine UA Negative (Negative); Leukocyte Esterase Urine Negative (Negative); Nitrite Urine Negative (Negative); PH 6.5 (5.0-9.0); Specific Gravity - Urine 1.015 (1.005-1.025); Urine Blood Negative (Negative); Urine Ketones Negative (Negative); Urine Protein Negative (Neg-Trace)
[2022-08-14 17:40] LABS: UPreg QC Valid YES; Urine Pregnancy NEGATIVE (NEGATIVE)
[2022-08-14] MEDS: hydrOXYzine HCL 50 MG TABLET PO (17:41)
[2022-08-14] MEDS: cloNIDine HCL 0.1 MG TABLET PO (17:42)
[2022-08-14] MEDS: LORazepam 1 MG TABLET PO (17:42)
[2022-08-14 17:48] LABS: Amphetamine Screen Urine Not Detected (Not Detect); Barbiturates, Urine Not Detected (Not Detect); Benzodiazepines Screen Urine Not Detected (Not Detect); Cannabinoid Screen Urine POSITIVE (Not Detect); Cocaine Screen Urine Not Detected (Not Detect); Fentanyl, urine POSITIVE (Not Detect); Opiate Screen Urine Not Detected (Not Detect); Phencyclidine Screen Urine Not Detected (Not Detect)
[2022-08-14] MEDS: Zolpidem Tartrate 5 MG TABLET PO (22:53)
[2022-08-14] MEDS: Prazosin HCL 1 MG CAPSULE PO (22:53)
[2022-08-14] MEDS: Prazosin HCL 5 MG CAPSULE 15 MG PO (22:53)
[2022-08-14] MEDS: Benztropine Mesylate 0.5 MG TABLET PO (22:53)
[2022-08-14] MEDS: traZODone HCL 100 MG TABLET PO (22:53)
[2022-08-14] MEDS: Lithium Carbonate 300 MG CAPSULE PO (22:53)
[2022-08-14] MEDS: diphenhydrAMINE HCL 25 MG CAPSULE 100 MG PO (22:53)
--- NOTE | 2022-08-15 05:53 | PC.NURSE ---
Patient slept through the night, no distress observed/reported, patient is on 1:1 for observation due to sucidiality, medication compliant, patient is Covid +, respiration +/=/non-labored bilaterally, patient will be assessed by care team in the morning, VSS, will continue to monitor.
[2022-08-15] MEDS: Omeprazole 20 MG CAPSULE.DR PO (06:29)
[2022-08-15] MEDS: LORazepam 1 MG TABLET PO ×2 (06:29→10:54)
[2022-08-15] MEDS: HaloperidoL 5 MG TABLET PO ×2 (06:29→11:49)
--- NOTE | 2022-08-15 06:33 | PC.NURSE ---
Patient just woke up, reported having nightmare, patient was found hitting herself, PRN haldol 5 mg po and Ativan 1 mg po administered at 0629 pending effect, will continue to monitor.
[2022-08-15 06:52] VITALS: BP 112/69; PULSE 62; O2SAT 98
[2022-08-15] MEDS: Lithium Carbonate 300 MG CAPSULE PO (08:27)
[2022-08-15] MEDS: Benztropine Mesylate 0.5 MG TABLET PO (08:27)
[2022-08-15] MEDS: DULoxetine HCl 60 MG CAPSULE.DR PO (08:27)
[2022-08-15] MEDS: Ferrous Sulfate 324 MG TABLET.DR PO (08:27)
[2022-08-15] MEDS: hydrOXYzine HCL 50 MG TABLET PO (10:54)
--- NOTE | 2022-08-15 11:31 | MHC.CARE ---
CARE Team attempted to call Pts senior living multiple times and Pts [employer] Analyst
--- NOTE | 2022-08-15 11:50 | PC.NURSE ---
pt requested prn, had just had haldol at 0630 and on the OCT wasn't due till 1430, Dr Oquendo consulted and he said it would be fine to give her, medicated as ordered, per n they suggested that she go back to the shelter tomorrow, pt wants inpatient though, pt has a 1-1 sitter and laying in bed
--- NOTE | 2022-08-15 12:16 | MHC.CARE ---
CARE Team attempting to connect with residential staff for discharge planning
--- NOTE | 2022-08-15 13:35 | PC.NURSE ---
pt sleeping, 1-1 sitter w pt, awaiting call from her correction to set up grain picker time as CARE team [place] stated this was the plan
--- NOTE | 2022-08-15 15:12 | PC.NURSE ---
Addendum entered by Arabella Garcia RN 08/15/22 15:40: pt discharged, instructions given, verbalized understanding pt is alert and oriented left ambulatory with staff group member no signs of acute distress notice all pt belonging returned to the pt Original Note: report received from NINA Mensah pt resting comfortably residential staff called, stated that they're on the way to picked pt up sitter by bedside no signs of acute distress notice
== END 2022-08-15 15:40 | disposition still patient (30) ==
PROVIDERS: Physician Assistant; Student in an Organized Health Care Education/Training Program; Emergency Provider Emergency Medicine Emergency Medical Services; PCP Pediatrics
DX: F33.1 Major depressive disorder, recurrent, moderate (principal); R45.851 Suicidal ideations; Z20.822 Contact with and (suspected) exposure to COVID-19; Z79.899 Other long term (current) drug therapy
CPT/HCPCS: 0241U; 36415; 80053; 80178; 80307; 81003; 81025; 82077; 82248; 83690; 84702; 85025; 96372; 99284; 99285

== ENCOUNTER 2022-08-15 22:04 | Inpatient (IN) | payer OTHER, SELFPAY ==
--- NOTE | ~2022-08-15 | CT_ITS ---
EXAMINATION: CT HEAD WITHOUT CONTRAST CLINICAL INFORMATION: Rule out subdural hematoma. COMPARISON: Head CT August 06, 2021. TECHNIQUE: Contiguous axial imaging was performed from the skull base to vertex without intravenous administration of contrast. This CT examination was performed using dose optimization techniques as appropriate, variously including the following: *Automated exposure control *Adjustment of mA and/or kV according to patient size (this includes techniques or standardized protocols for targeted exams where dose is matched to indication/reason for exam; i.e. extremities or head) *Use of iterative reconstruction technique DLP: 668 mGy-cm. FINDINGS: There is no intracranial hemorrhage, large infarction, or mass lesion. There is no extra-axial collection. The ventricles are normal in size and configuration without evidence of hydrocephalus. The visualized paranasal sinuses and mastoid air cells are clear. There is a small amount of scarring within the midline frontal scalp. CT/CT head/brain wo IV con IMPRESSION: No acute intracranial abnormality.
--- NOTE | 2022-08-15 22:08 | ED_ITS ---
HPI - Psych General Chief Complaint: Psychiatric Symptoms <JUANITO Collado Last Filed: 08/16/22 00:56> Stated Complaint: SI/lacs <JUANITO Collado Last Filed: 08/16/22 00:56> Time Seen by Provider: 08/15/22 22:08 <JUANITO Collado Last Filed: 08/16/22 00:56> Source: patient, EMS and old records reviewed <JUANITO Collado Last Filed: 08/16/22 00:56> Mode of arrival: EMS <JUANITO Collado Last Filed: 08/16/22 00:56> Limitations: no limitations <JUANITO Collado Last Filed: 08/16/22 00:56> History of Present Illness HPI Narrative: 37 yo female with history schizoaffective disorder, PTSD, GERD, obesity, borderline personality disorder who engages in cutting behaviors who was just discharged from this facility earlier today presents back to the ER from her longterm after cutting herself on both of her forearms, abdomen and breasts. She states she was about to cut her neck, slit her throat an end her life but she called 911 for help instead. She states she was going to call the hospital to say goodbye to everyone here because we care about her. She states she was not stable for discharge home he has discharged her earlier today. <JUANITO Collado Last Filed: 08/16/22 00:56> MD complaint: suicidal ideation, feels depressed and other (self inflicted trauma) <JUANITO Collado Last Filed: 08/16/22 00:56> History of same: Yes <JUANITO Collado Last Filed: 08/16/22 00:56> Relieving factors: none <JUANITO Collado Last Filed: 08/16/22 00:56> Exacerbating factors: none <JUANITO Collado Last Filed: 08/16/22 00:56> Context: significant life stressor (Number of the longterm is mean to her) <JUANITO Collado Last Filed: 08/16/22 00:56> Associated psychiatric symptoms: depression and suicidal ideation <JUANITO Collado Filed: 08/16/22 00:56> Associated symptoms: insomnia <JUANITO Collado - Last Filed: 08/16/22 00:56> If self harm: admits thoughts of self harm, has plan, has acted on plan and self- inflicted trauma <JUANITO Collado - Last Filed: 08/16/22 00:56> Related Data Home Medications: Home Medications Medication Instructions Recorded Confirmed acetaminophen 500 mg tablet 1 tab PO Q6H PRN pain 08/14/22 08/15/22 albuterol sulfate 90 mcg/actuation 2 puff inhalation BID PRN Wheezing 08/14/22 08/15/22 aerosol inhaler (ProAir HFA) ammonium lactate 12 % topical cream 1 appl topical BID PRN Dry Skin 08/14/22 08/15/22 bacitracin 500 unit/gram topical 1 appl topical BID PRN Wound 08/14/22 08/15/22 ointment Healing benzonatate 100 mg capsule 1 cap PO TID PRN cough 08/14/22 08/15/22 benztropine 0.5 mg tablet 1 tab PO BID 08/14/22 08/15/22 clonidine HCl 0.1 mg tablet 1 tab PO BID PRN anxiety 08/14/22 08/15/22 diphenhydramine HCl 50 mg capsule 2 cap PO BEDTIME 08/14/22 08/15/22 (Banophen) duloxetine 60 mg capsule,delayed 1 cap PO QAM 08/14/22 08/15/22 release ferrous sulfate 325 mg (65 mg 1 tab PO QAM 08/14/22 08/15/22 iron) tablet,delayed release fluticasone propionate 230 2 puff inhalation BID 08/14/22 08/15/22 mcg-salmeterol 21 mcg/actuation HFA inhaler (Advair HFA) haloperidol 5 mg tablet 1 tab PO TID PRN Agitation 08/14/22 08/15/22 haloperidol decanoate 100 mg/mL 0.75 ml IM QWEEK 08/14/22 08/15/22 intramuscular solution hydroxyzine pamoate 50 mg capsule 1 cap PO BID PRN Anxiety 08/14/22 08/15/22 lithium carbonate 300 mg tablet 1 tab PO BID 08/14/22 08/15/22 lorazepam 1 mg tablet 1 tab PO TID PRN anxiety 08/14/22 08/15/22 nicotine (polacrilex) 2 mg gum 2 mg buccal Q2H PRN Smoking 08/14/22 08/15/22 Cessation omeprazole 20 mg tablet,delayed 20 mg PO DAILY 08/14/22 08/15/22 release ondansetron HCl 4 mg tablet 1 tab PO Q6H PRN nausea/vomiting 08/14/22 08/15/22 prazosin 1 mg capsule 1 cap PO BEDTIME 08/14/22 08/15/22 prazosin 5 mg capsule 3 cap PO BEDTIME 08/14/22 08/15/22 trazodone 50 mg tablet 2 tab PO BEDTIME PRN insomnia 08/14/22 08/15/22 zolpidem 10 mg tablet 1 tab PO BEDTIME 08/14/22 08/15/22 <JUANITO Collado - Last Filed: 08/16/22 00:56> Allergies/Adverse Reactions: Allergies Allergy/AdvReac Type Severity Reaction Status Date / Time carbamazepine [From TEGRETOL] AdvReac Unknown NAUSEA & Verified 05/15/22 19:31 VOMITING Fish Containing Products AdvReac Stomach Verified 05/15/22 19:31 Upset <JUANITO Collado - Last Filed: 08/16/22 00:56> Review of Systems Review of Systems: Constitutional: No Fever, No Chills ENT/Mouth: No sore throat, No Rhinorrhea Cardiovascular: No Chest Pain, No SOB, No Orthopnea, No Edema Respiratory: No Cough, No Sputum, No Wheezing, No dyspnea Gastrointestinal: No Nausea, No Vomiting, No Diarrhea, No abdominal Pain Genitourinary: No Dysuria, No Urinary Frequency, No Hematuria Musculoskeletal: + joint pain, No Myalgias Skin: No Skin Lesions, No rash Neuro: No Weakness, No Numbness, No Dizziness, No Headache Psych: + Anxiety/Panic, + Depression, +SI, No HI Heme/Lymph: No Bruising, No Lymphadenopathy <JUANITO Collado - Last Filed: 08/16/22 00:56> [facility] Past Medical History Medical History: Medical History Acute post-traumatic stress disorder Adjustment disorder Anxiety Asthma Borderline personality disorder Chronic post-traumatic stress disorder (PTSD) COPD (chronic obstructive pulmonary disease) Depression GERD (gastroesophageal reflux disease) Increased BMI Injury, self-inflicted Intentional self-harm PTSD (post-traumatic stress disorder) Recurrent major depression-severe Schizoaffective disorder Self-harming behavior Suicidal ideation Suicidal ideation <JUANITO Collado - Last Filed: 08/16/22 00:56> Social History Social History: Social History Household Members: Other Household Members Other:: longterm Housing: Other Housing Other:: longterm Do you presently have visiting nurse or other home services: No Alcohol intake: unknown Patient Tobacco Use Status: Never used Tobacco Tobacco use type: Cigarette Cigarette Packs Per Day: 1 Cigarettes Per Day: 20.0 Years Smoked: 17 Smoked in Last 30 Days: Yes e-Cigarette/Vaping Use: Never Used Second Hand Smoke Exposure: Yes Use of substances other than those prescribed or required for medical reasons: Unknown Substance Use Type: Marijuana Advance Directives: No Advance Directives Information Provided: No Patient : No service: No Sexual orientation: Don't Know <JUANITO Collado - Last Filed: 08/16/22 00:56> Physical Exam Vital Signs: Vital Signs: Last Vital Signs Temp 99.3 F 08/16/22 22:29 Pulse 75 08/16/22 22:29 Resp 18 08/16/22 22:29 BP 105/63 08/16/22 22:29 Pulse Ox 98 08/16/22 22:29 O2 Del Method 08/16/22 22:29 BMI result Body Mass Index 48.4 <JUANITO Collado - Last Filed: 08/16/22 00:56> Vital Signs: Last Vital Signs Temp 99.3 F 08/16/22 22:29 Pulse 75 08/16/22 22:29 Resp 18 08/16/22 22:29 BP 105/63 08/16/22 22:29 Pulse Ox 98 08/16/22 22:29 O2 Del Method 08/16/22 22:29 BMI result Body Mass Index 48.4 <Jovan Chau MD - Last Filed: 08/16/22 08:22> Appearance: Alert. Oriented X3. No acute distress. Eyes: Pupils equal, round and reactive to light. ENT: Pharynx normal. Neck: Normal inspection. Neck supple. CVS: Normal heart rate and rhythm. Pulses normal. Chest wall with multiple superficial lacerations to the left breast. There is a 3 cm laceration to the lateral left breast that is gaping by a 1 cm. Respiratory: No respiratory distress. Breath sounds normal. Abdomen: Soft and nontender. +BS x4. Abdominal wall with multiple superficial abrasions centrally in a circular pattern. No active bleeding. Skin: Skin warm and dry. Normal skin color. Normal skin turgor. No rashes. Extremities: No lower extremity edema. Bilateral forearms with multiple lacerations, some actively oozing. Most superficial with slight gaping but nothing deep to to the muscle or tendon. She has normal range of motion of the bilateral wrists. Multiple scabbing wounds to the bilateral forearms from previous cutting. Several wounds with wallace in place that her adequately healed. Neuro/psych: Oriented X 3. No motor deficit. No sensory deficit. CN II-XII intact. Normal speech and cognition. Hitting herself. Depressed. Tearful. <JUANITO Collado - Last Filed: 08/16/22 00:56> Course Course Course Narrative: 37 yo female with hx schizoaffective disorder, PTSD, GERD, obesity, borderline personality disorder who engages in cutting behaviors who was just discharged from this facility earlier today presenting with multiple superficial lacerations to her bilateral forearms, stomach and left breast. Through multiple superficial lacerations on the bilateral forearms that required staple closure as well as 2 lacerations on the left breast that were closed with wallace. There were also prior wounds that were stapled closed or adequately healed and allowed for staple removal today. At this time patient is medically cleared to have crisis team evaluate her for possible inpatient psychiatric admission. Physician observation started at 12:52am. Patient placed in physician observation because patient is awaiting [facility] evaluation for the possible need of inpatient psych admission. At the time observation was started patient's vital signs were stable. Patient is alert and oriented. Neuro exam is non-focal. CV: RRR and lungs are clear. Will continue to monitor. <JUANITO Collado - Last Filed: 08/16/22 00:56> Reevaluation(s) Reevaluation #1: . <JUANITO Collado - Last Filed: 08/16/22 00:56> No events overnight reported by the nurses, patient has been quiet and calm, because the seriousness of the patient attempt to cut herself we will admit the patient to an inpatient psych unit, bed search is underway, continue with physician observation. <Jovan Chau MD - Last Filed: 08/16/22 08:22> Time: 08:21 <Jovan Chau MD - Last Filed: 08/16/22 08:22> Medications Administered Generic Name Dose Route Start Last Admin Trade Name Freq PRN Reason Stop Dose Admin Acetaminophen 650 mg 08/15/22 23:10 08/16/22 13:39 Acetaminophen 325 Mg Tablet PO 650 mg Q6H PRN Administration pain Bacitracin 1 appl 08/15/22 23:03 08/16/22 08:44 Bacitracin Oint 14 Gm Tube TOPICAL 1 appl BID PRN Administration Wound Healing Protocol Benztropine Mesylate 0.5 mg 08/15/22 23:15 08/16/22 20:37 Benztropine Mesylate 0.5 Mg Tablet PO 0.5 mg BID SULEIMAN Administration Clonidine HCl 0.1 mg 08/15/22 23:03 08/16/22 13:32 Clonidine Hcl 0.1 Mg Tablet PO 0.1 mg BID PRN Administration anxiety Protocol Diphenhydramine HCl 100 mg 08/15/22 23:15 08/16/22 20:37 Diphenhydramine Hcl 25 Mg Capsule PO 100 mg BEDTIME SULEIMAN Administration Duloxetine HCl 60 mg 08/16/22 09:00 08/16/22 08:13 Duloxetine Hcl 60 Mg Capsule. PO 60 mg DAILY SULEIMAN Administration Ferrous Sulfate 324 mg 08/16/22 09:00 08/16/22 08:13 Ferrous Sulfate 324 Mg Tablet. PO 324 mg DAILY SULEIMAN Administration Fluticasone/Vilanterol 1 puff 08/16/22 09:00 08/16/22 08:41 Fluticasone/Vilanterol 200/25 Blst.W.Dev INHALE 1 puff DAILY SULEIMAN Administration Haloperidol 5 mg 08/15/22 23:03 08/16/22 08:13 Haloperidol 5 Mg Tablet PO 5 mg TID PRN Administration Agitation Hydroxyzine HCl 50 mg 08/15/22 23:03 08/16/22 13:32 Hydroxyzine Hcl 50 Mg Tablet PO 50 mg BID PRN Administration Anxiety [place] Carbonate 300 mg 08/15/22 23:15 08/16/22 20:37 [place] Carbonate 300 Mg Capsule PO 300 mg BID SULEIMAN Administration Lorazepam 1 mg 08/15/22 23:03 08/16/22 08:13 Lorazepam 1 Mg Tablet PO 1 mg TID PRN Administration anxiety Omeprazole 20 mg 08/16/22 09:00 08/16/22 08:13 Omeprazole 20 Mg Capsule.Dr PO 20 mg DAILY SULEIMAN Administration Prazosin HCl 1 mg 08/15/22 23:15 08/16/22 20:37 Prazosin Hcl 1 Mg Capsule PO 1 mg BEDTIME SULEIMAN Administration Protocol Prazosin HCl 15 mg 08/15/22 23:15 08/16/22 20:37 Prazosin Hcl 5 Mg Capsule PO 15 mg BEDTIME SULEIMAN Administration Protocol Trazodone HCl 100 mg 08/15/22 23:03 08/16/22 20:38 Trazodone Hcl 100 Mg Tablet PO 100 mg BEDTIME PRN Administration insomnia Zolpidem Tartrate 10 mg 08/15/22 23:15 08/16/22 20:37 Zolpidem Tartrate 5 Mg Tablet PO 10 mg BEDTIME SULEIMAN Administration Discontinued Medications Generic Name Dose Route Start Last Admin Trade Name Freq PRN Reason Stop Dose Admin Haloperidol Lactate 5 mg 08/15/22 23:06 08/15/22 23:15 Haloperidol Lactate 5 Mg/Ml Vial IM 08/15/22 23:07 5 mg ONCE ONE Administration Lidocaine HCl 1 appl 08/15/22 22:11 08/15/22 22:31 Lidocaine 4 % Cream Kit TOPICAL 08/15/22 22:12 Not Given ONCE ONE Protocol Lorazepam 2 mg 08/15/22 23:06 08/15/22 23:15 Lorazepam 2 Mg/Ml Vial IM 08/15/22 23:07 2 mg ONCE ONE Administration <JUANITO Collado - Last Filed: 08/16/22 00:56> Medications Administered Generic Name Dose Route Start Last Admin Trade Name Freq PRN Reason Stop Dose Admin Acetaminophen 650 mg 08/15/22 23:10 08/16/22 13:39 Acetaminophen 325 Mg Tablet PO 650 mg Q6H PRN Administration pain Bacitracin 1 appl 08/15/22 23:03 08/16/22 08:44 Bacitracin Oint 14 Gm Tube TOPICAL 1 appl BID PRN Administration Wound Healing Protocol Benztropine Mesylate 0.5 mg 08/15/22 23:15 08/16/22 20:37 Benztropine Mesylate 0.5 Mg Tablet PO 0.5 mg BID SULEIMAN Administration Clonidine HCl 0.1 mg 08/15/22 23:03 08/16/22 13:32 Clonidine Hcl 0.1 Mg Tablet PO 0.1 mg BID PRN Administration anxiety Protocol Diphenhydramine HCl 100 mg 08/15/22 23:15 08/16/22 20:37 Diphenhydramine Hcl 25 Mg Capsule PO 100 mg BEDTIME SULEIMAN Administration Duloxetine HCl 60 mg 08/16/22 09:00 08/16/22 08:13 Duloxetine Hcl 60 Mg Capsule. PO 60 mg DAILY SULEIMAN Administration Ferrous Sulfate 324 mg 08/16/22 09:00 08/16/22 08:13 Ferrous Sulfate 324 Mg Tablet. PO 324 mg DAILY SULEIMAN Administration Fluticasone/Vilanterol 1 puff 08/16/22 09:00 08/16/22 08:41 Fluticasone/Vilanterol 200/25 Blst.W.Dev INHALE 1 puff DAILY SULEIMAN Administration Haloperidol 5 mg 08/15/22 23:03 08/16/22 08:13 Haloperidol 5 Mg Tablet PO 5 mg TID PRN Administration Agitation Hydroxyzine HCl 50 mg 08/15/22 23:03 08/16/22 13:32 Hydroxyzine Hcl 50 Mg Tablet PO 50 mg BID PRN Administration Anxiety [place] Carbonate 300 mg 08/15/22 23:15 08/16/22 20:37 [place] Carbonate 300 Mg Capsule PO 300 mg BID SULEIMAN Administration Lorazepam 1 mg 08/15/22 23:03 08/16/22 08:13 Lorazepam 1 Mg Tablet PO 1 mg TID PRN Administration anxiety Omeprazole 20 mg 08/16/22 09:00 08/16/22 08:13 Omeprazole 20 Mg Capsule. PO 20 mg DAILY SULEIMAN Administration Prazosin HCl 1 mg 08/15/22 23:15 08/16/22 20:37 Prazosin Hcl 1 Mg Capsule PO 1 mg BEDTIME SULEIMAN Administration Protocol Prazosin HCl 15 mg 08/15/22 23:15 08/16/22 20:37 Prazosin Hcl 5 Mg Capsule PO 15 mg BEDTIME SULEIMAN Administration Protocol Trazodone HCl 100 mg 08/15/22 23:03 08/16/22 20:38 Trazodone Hcl 100 Mg Tablet PO 100 mg BEDTIME PRN Administration insomnia Zolpidem Tartrate 10 mg 08/15/22 23:15 08/16/22 20:37 Zolpidem Tartrate 5 Mg Tablet PO 10 mg BEDTIME SULEIMAN Administration Discontinued Medications Generic Name Dose Route Start Last Admin Trade Name [place] PRN Reason Stop Dose Admin Haloperidol Lactate 5 mg 08/15/22 23:06 08/15/22 23:15 Haloperidol Lactate 5 Mg/Ml Vial IM 08/15/22 23:07 5 mg ONCE ONE Administration Lidocaine HCl 1 appl 08/15/22 22:11 08/15/22 22:31 Lidocaine 4 % Cream Kit TOPICAL 08/15/22 22:12 Not Given ONCE ONE Protocol Lorazepam 2 mg 08/15/22 23:06 08/15/22 23:15 Lorazepam 2 Mg/Ml Vial IM 08/15/22 23:07 2 mg ONCE ONE Administration <Jovan Chau MD - Last Filed: 08/16/22 08:22> Medical Decision Making Differential Diagnosis Differential Diagnoses: The differential diagnosis associated with the presentation includes <JUANITO Collado - Last Filed: 08/16/22 00:56> SI, borderline personality disorder, superficial lacerations versus deep lacerations, schizoaffective disorder, chronic suicidal ideation <JUANITO Collado - Last Filed: 08/16/22 00:56> Admission/Observation Consideration of admission/observation: Escalation of care including admission/observation considered <JUANITO Collado - Last Filed: 08/16/22 00:56> IM meds given for self harm in the behavioral pod. pending [facility] evaluation for possible inpatient admission. <JUANITO Collado - Last Filed: 08/16/22 00:56> Lab Data MDM Lab Attestation statement: I reviewed the patient's lab results. <JUANITO Collado - Last Filed: 08/16/22 00:56> COVID postive on 08/09 as well, no longer symptomatic <JUANITO Collado - Last Filed: 08/16/22 00:56> Labs: Lab Results 08/15/22 08/16/22 Range/Units 23:35 00:59 Urine Opiates Screen Not Detected (Not Detect) Urine Fentanyl Screen POSITIVE H (Not Detect) Ur Barbiturates Screen Not Detected (Not Detect) Ur Phencyclidine Scrn Not Detected (Not Detect) Ur Amphetamines Screen Not Detected (Not Detect) U Benzodiazepines Scrn Not Detected (Not Detect) Urine Cocaine Screen Not Detected (Not Detect) U Marijuana (THC) Screen POSITIVE H (Not Detect) COVID-19 (RAFAL) Positive A (Negative) COVID-19 Clin Com See Note <JUANITO Collado - Last Filed: 08/16/22 00:56> Lab Results 08/15/22 08/16/22 Range/Units 23:35 00:59 Urine Opiates Screen Not Detected (Not Detect) Urine Fentanyl Screen POSITIVE H (Not Detect) Ur Barbiturates Screen Not Detected (Not Detect) Ur Phencyclidine Scrn Not Detected (Not Detect) Ur Amphetamines Screen Not Detected (Not Detect) U Benzodiazepines Scrn Not Detected (Not Detect) Urine Cocaine Screen Not Detected (Not Detect) U Marijuana (THC) Screen POSITIVE H (Not Detect) COVID-19 (RAFAL) Positive A (Negative) COVID-19 Clin Com See Note <Jovan Chau MD - Last Filed: 08/16/22 08:22> Independent Historian Clinical information obtained from an independent historian. History obtained from or confirmed by: EMS <JUANITO Collado - Last Filed: 08/16/22 00:56> External Record Review External record reviewed: Inpatient record and Prior outpatient labs <JUANITO Collado Last Filed: 08/16/22 00:56> Prescription Management I considered prescription management with: Pain Medication and Antibiotic <JUANITO Collado Last Filed: 08/16/22 00:56> does not require, no evidence of cellulitis at this time. <JUANITO Collado Last Filed: 08/16/22 00:56> Procedures Laceration Laceration 1: Site: upper extremity <JUANITO Collado Last Filed: 08/16/22 00:56> Side (If applicable): left <JUANITO Collado Last Filed: 08/16/22 00:56> Size (cm): 4 <JUANITO Collado - Last Filed: 08/16/22 00:56> Description: linear <JUANITO Collado - Last Filed: 08/16/22 00:56> Depth: simple, single layer <JUANITO Colldao Last Filed: 08/16/22 00:56> Size (cm): other (wallace) <JUANITO Collado - Last Filed: 08/16/22 00:56> Laceration 2: Site: chest <JUANITO Collado - Last Filed: 08/16/22 00:56> Side (If applicable): left <JUANITO Collado - Last Filed: 08/16/22 00:56> Size (cm): 4 <JUANITO Collado - Last Filed: 08/16/22 00:56> Description: linear <JUANITO Collado - Last Filed: 08/16/22 00:56> Depth: simple, single layer <JUANITO Collado Last Filed: 08/16/22 00:56> Local Anesthetic: other anesthetic (lmx) <JUANITO Collado - Last Filed: 08/16/22 00:56> Pre-repair: irrigated extensively <JUANITO Collado - Last Filed: 08/16/22 00:56> Skin layer closed with: other (wallace) <JUANITO Collado - Last Filed: 08/16/22 00:56> Discharge Plan Discharge Clinical Impression: Suicidal ideation, Deliberate self-cutting <JUANITO Collado Last Filed: 08/16/22 00:56> Patient Disposition: Still a Patient <JUANITO Collado - Last Filed: 08/16/22 00:56> Additional Instructions: Multiple wounds were stapled closed. The wallace should be removed in 1 week on August 23. <JUANITO Collado Last Filed: 08/16/22 00:56> Prescriptions: No Action benztropine 0.5 mg tablet 1 tab PO BID haloperidol 5 mg tablet 1 tab PO TID PRN (Reason: Agitation) diphenhydramine HCl [Banophen] 50 mg capsule 2 cap PO BEDTIME prazosin 1 mg capsule 1 cap PO BEDTIME hydroxyzine pamoate 50 mg capsule 1 cap PO BID PRN (Reason: Anxiety) zolpidem 10 mg tablet 1 tab PO BEDTIME ferrous sulfate 325 mg (65 mg iron) tablet,delayed release (DR/EC) 1 tab PO QAM lithium carbonate 300 mg tablet 1 tab PO BID duloxetine 60 mg capsule,delayed release(DR/EC) 1 cap PO QAM clonidine HCl 0.1 mg tablet 1 tab PO BID PRN (Reason: anxiety) trazodone 50 mg tablet 2 tab PO BEDTIME PRN (Reason: insomnia) haloperidol decanoate 100 mg/mL solution 0.75 ml IM QWEEK ondansetron HCl 4 mg tablet 1 tab PO Q6H PRN (Reason: nausea/vomiting) bacitracin 500 unit/gram ointment 1 appl topical BID PRN (Reason: Wound Healing) acetaminophen 500 mg tablet 1 tab PO Q6H PRN (Reason: pain) prazosin 5 mg capsule 3 cap PO BEDTIME benzonatate 100 mg capsule 1 cap PO TID PRN (Reason: cough) ammonium lactate 12 % cream 1 appl TOPICAL BID PRN (Reason: Dry Skin) lorazepam 1 mg tablet 1 tab PO TID PRN (Reason: anxiety) albuterol sulfate [ProAir HFA] 90 mcg/actuation HFA aerosol inhaler 2 puff inhalation BID PRN (Reason: Wheezing) Advair HFA 230-21 mcg/actuation HFA aerosol inhaler 2 puff inhalation BID nicotine (polacrilex) 2 mg Gum 2 mg BUCCAL Q2H PRN (Reason: Smoking Cessation) omeprazole 20 mg Tablet,Delayed Release (Dr/Ec) 20 mg PO DAILY <JUANITO Collado - Last Filed: 08/16/22 00:56> Interventions: Swisher-Suicide Risk Severity Scale Last Done: 08/16/22 15:41 <JUANITO Collado - Last Filed: 08/16/22 00:56>
[2022-08-15 22:31] VITALS: BP 127/72; PULSE 98; RESP 17; TEMP 36.6; O2SAT 94; BMI 48.4
[2022-08-15 23:15] VITALS: RESP 20
[2022-08-15] MEDS: LORazepam 2 MG/ML VIAL IM (23:15)
[2022-08-15] MEDS: Haloperidol Lactate 5 MG/ML VIAL IM (23:15)
[2022-08-15 23:30] VITALS: RESP 18
[2022-08-15 23:45] VITALS: RESP 18
[2022-08-15 23:53] LABS: COVID-19 Test Positive (Negative); IDNOW Serial# 16C4AD1C
[2022-08-16] VITALS: RESP 17
[2022-08-16 00:15] VITALS: BP 105/64; PULSE 92; RESP 16; O2SAT 93
[2022-08-16] MEDS: Zolpidem Tartrate 5 MG TABLET 10 MG PO ×2 (00:20→20:37)
[2022-08-16] MEDS: Prazosin HCL 5 MG CAPSULE 15 MG PO ×2 (00:20→20:37)
[2022-08-16] MEDS: Lithium Carbonate 300 MG CAPSULE PO ×3 (00:20→20:37)
[2022-08-16] MEDS: Prazosin HCL 1 MG CAPSULE PO ×2 (00:20→20:37)
[2022-08-16] MEDS: Benztropine Mesylate 0.5 MG TABLET PO ×3 (00:21→20:37)
[2022-08-16] MEDS: diphenhydrAMINE HCL 25 MG CAPSULE 100 MG PO ×2 (00:21→20:37)
--- NOTE | 2022-08-16 00:46 | PC.NURSE ---
Patient brought in to ED POD by ED staff with partial changeover. Patient ambulates independently and no sooner she arrives patient started to headband against the wall in her room and stated No cares about me and she would give herself serious head concussion , patient was immediately placed on 2:1 for safety, provider notified/Ativan 2 mg IM and Haldol 5 mg IM administered at 2315, followed by her HS medication which she was compliant with, provider came and completed remaining treatment, VSS, will continue to monitor on 1:1 for safety and containment.
[2022-08-16 02:29] LABS: Amphetamine Screen Urine Not Detected (Not Detect); Barbiturates, Urine Not Detected (Not Detect); Benzodiazepines Screen Urine Not Detected (Not Detect); Cannabinoid Screen Urine POSITIVE (Not Detect); Cocaine Screen Urine Not Detected (Not Detect); Fentanyl, urine POSITIVE (Not Detect); Opiate Screen Urine Not Detected (Not Detect); Phencyclidine Screen Urine Not Detected (Not Detect)
--- NOTE | 2022-08-16 06:56 | PC.NURSE ---
Patient slept through the night, no distress observed/reported, patient is one to one for safety observation, medication compliant, patient is awaiting care team evaluation, patient reported that they shouldn't have discharged her yesterday, VSS, will continue to monitor.
--- NOTE | 2022-08-16 07:50 | PC.NURSE ---
pt seen by care team (shun) pt aware of plan of care.
[2022-08-16] MEDS: LORazepam 1 MG TABLET PO (08:13)
[2022-08-16] MEDS: HaloperidoL 5 MG TABLET PO (08:13)
[2022-08-16] MEDS: Omeprazole 20 MG CAPSULE.DR PO (08:13)
[2022-08-16] MEDS: DULoxetine HCl 60 MG CAPSULE.DR PO (08:13)
[2022-08-16] MEDS: Ferrous Sulfate 324 MG TABLET.DR PO (08:13)
[2022-08-16 08:24] VITALS: BP 102/59; PULSE 86; RESP 16; TEMP 37.3; O2SAT 97
--- NOTE | 2022-08-16 08:40 | PC.NURSE ---
pt is a/o x 4 no sob/michael noted speaks in full sentences. +si. pt has multi wallace to her solomon forearms and on her l breast. pt was attempting to pick at the wallace on her forearm. pt c/o anxiety/hitting her face, med x 1 with haldol 5mg and ativan 1mg po. bacitracin applied to solomon forearm followed by clean dry dressing. pt aware of plan of care for bed search.
[2022-08-16] MEDS: Fluticasone/Vilanterol 200/25 BLST.W.DEV 1 PUFF INHALE (08:41)
[2022-08-16] MEDS: Bacitracin Oint 14 GM TUBE 1 APPL TOPICAL (08:44)
[2022-08-16 13:30] VITALS: BP 109/69; PULSE 81; RESP 17; TEMP 36.2; O2SAT 94
[2022-08-16] MEDS: cloNIDine HCL 0.1 MG TABLET PO (13:32)
[2022-08-16] MEDS: hydrOXYzine HCL 50 MG TABLET PO (13:32)
--- NOTE | 2022-08-16 13:36 | PC.NURSE ---
pt sitting on in bed hitting post head on wall. 1:1 sitter at bedside.. pt med x 1 with clonidine 0.1mg po and atarax 50mg po.
[2022-08-16] MEDS: Acetaminophen 325 MG TABLET 650 MG PO (13:39)
--- NOTE | 2022-08-16 13:44 | PC.NURSE ---
pt med x 1 with tylenol 650mg po for 7/10 solomon lower forearm pain
[2022-08-16 15:41] VITALS: RESP 16
[2022-08-16] MEDS: traZODone HCL 100 MG TABLET PO (20:38)
[2022-08-16 22:29] VITALS: BP 105/63; PULSE 75; RESP 18; TEMP 37.4; O2SAT 98
--- NOTE | 2022-08-17 05:55 | PC.NURSE ---
Patient slept through the night, no distress observed/reported, disposition per care team is section 12 inpatient bed search, medication compliant, unable to contract for the safety, patient is on 1:1 for suicidality, behavior is non concerning at this time but mostly unpredictable, VSS, will continue to monitor.
[2022-08-17] MEDS: LORazepam 1 MG TABLET PO ×2 (07:29→12:53)
[2022-08-17] MEDS: HaloperidoL 5 MG TABLET PO ×2 (07:30→12:53)
[2022-08-17] MEDS: Benztropine Mesylate 0.5 MG TABLET PO ×2 (07:41→21:42)
[2022-08-17] MEDS: DULoxetine HCl 60 MG CAPSULE.DR PO (07:41)
[2022-08-17] MEDS: Fluticasone/Vilanterol 200/25 BLST.W.DEV 1 PUFF INHALE (07:41)
[2022-08-17] MEDS: Lithium Carbonate 300 MG CAPSULE PO ×2 (07:41→21:42)
[2022-08-17] MEDS: Omeprazole 20 MG CAPSULE.DR PO (07:41)
[2022-08-17] MEDS: Ferrous Sulfate 324 MG TABLET.DR PO (07:41)
--- NOTE | 2022-08-17 07:53 | PC.NURSE ---
patient appears to remain at rest at present upon awakening had initiated gentle head tapping on wall seemingly to yield attention from staff, staff intervened by preventing head from impacting wall, this typewriter tester approached w po medication and thankfully client accepted po meds. t/w also suggested other coping tools which client declined, t/w also stated that if insufficient effect was yielded from prn medications we could pursue something additional after one hour. t/w set timer.
[2022-08-17] MEDS: hydrOXYzine HCL 50 MG TABLET PO (12:53)
[2022-08-17 13:15] VITALS: BP 106/71; PULSE 64; RESP 16; TEMP 36.3; O2SAT 99
--- NOTE | 2022-08-17 14:39 | PHA.MEDREC ---
Pharmacy Consult ? Medication Reconciliation Pharmacy has reviewed the medication reconciliation done by JAMAL.
[2022-08-17 18:00] VITALS: BP 104/55; PULSE 72; TEMP 36.7; O2SAT 98
[2022-08-17] MEDS: Zolpidem Tartrate 5 MG TABLET 10 MG PO (21:41)
[2022-08-17] MEDS: Prazosin HCL 1 MG CAPSULE PO (21:42)
[2022-08-17] MEDS: diphenhydrAMINE HCL 25 MG CAPSULE 100 MG PO (21:42)
[2022-08-17] MEDS: Prazosin HCL 5 MG CAPSULE 15 MG PO (21:42)
--- NOTE | 2022-08-18 01:08 | PC.ADMIT ---
pt is a 37 year old female who represent to [facility] ED with self harm. pt has had several inpatients stays with [facility], most recent one being on M3 on Sep 2021. pt tox screen is positive for opioids and THC. during admission pt is flat and fixed on sleeping. pt enagaged in several self harming behaviors during shift. pt reports smoking. pt has a 1:1 due to self harm.
[2022-08-18 08:16] VITALS: BP 108/68; PULSE 76; RESP 16; TEMP 36.6; O2SAT 98
[2022-08-18] MEDS: Benztropine Mesylate 0.5 MG TABLET PO ×2 (08:46→19:49)
[2022-08-18] MEDS: Omeprazole 20 MG CAPSULE.DR PO (08:46)
[2022-08-18] MEDS: Lithium Carbonate 300 MG CAPSULE PO ×2 (08:47→19:48)
[2022-08-18] MEDS: Ferrous Sulfate 324 MG TABLET.DR PO (08:47)
[2022-08-18] MEDS: DULoxetine HCl 60 MG CAPSULE.DR PO (08:47)
[2022-08-18] MEDS: Acetaminophen 325 MG TABLET 650 MG PO (08:56)
[2022-08-18 09:27] LABS: Estimated Average Glucose 85 mg/dL; Hemoglobin A1c % 4.6 %
[2022-08-18 09:51] LABS: Cholesterol 144 mg/dL; HDL Cholesterol 36 mg/dL; LDL Cholesterol Calculated 91 mg/dl; Magnesium 1.8 mg/dL (1.6-2.6); Triglycerides 88 mg/dL
--- NOTE | 2022-08-18 10:00 | P.PNPSI_ITS ---
Subjective Subjective Date of Service: 08/18/22 Reason For Visit: Schizoaffective D/O PTSD Borderline Persosnality Diagnostics Vital Signs (24Hr): Vital Signs - 24 hr 08/17/22 13:15 08/17/22 18:00 Temperature 97.3 F 98.1 F Pulse Rate 64 72 Respiratory Rate 16 Blood Pressure 106/71 104/55 L Pulse Oximetry 99 98 Oxygen Delivery Method Room Air Room Air BMI result Body Mass Index 48.4 Labs Labs: Laboratory Results - last 48 hr 08/18/22 08/18/22 08:38 08:38 Estimat Average Glucose 85 Hemoglobin A1c % 4.6 Magnesium 1.8 Triglycerides 88 Cholesterol 144 LDL Cholesterol, Calc 91 HDL Cholesterol 36 Medications Medications Current Medications Acetaminophen (Acetaminophen 325 Mg Tablet) 650 mg PO Q6H PRN PRN Reason: pain Last Admin: 08/18/22 08:56 Dose: 650 mg Acetaminophen (Acetaminophen 325 Mg Tablet) 650 mg PO Q6H PRN PRN Reason: Headache/Pain Mild Scale (1-3) Al Hydroxide/Mg Hydroxide (Magnesium Hydrox/Alum Hydrox 30 Ml Oral.Susp) 30 ml PO Q6H PRN PRN Reason: Heartburn/Nausea Albuterol Sulfate (Albuterol Sulfate 90 Mcg 8 Gm Inhaler) 2 puff INHALE BID PRN PRN Reason: Wheezing Bacitracin (Bacitracin Oint 14 Gm Tube) 1 appl TOPICAL BID PRN; Protocol PRN Reason: Wound Healing Last Admin: 08/16/22 08:44 Dose: 1 appl Benzonatate (Benzonatate 100 Mg Capsule) 100 mg PO TID PRN PRN Reason: cough Benztropine Mesylate (Benztropine Mesylate 0.5 Mg Tablet) 0.5 mg PO BID [facility] Last Admin: 08/18/22 08:46 Dose: 0.5 mg Clonidine HCl (Clonidine Hcl 0.1 Mg Tablet) 0.1 mg PO BID PRN; Protocol PRN Reason: anxiety Last Admin: 08/16/22 13:32 Dose: 0.1 mg Diphenhydramine HCl (Diphenhydramine Hcl 25 Mg Capsule) 100 mg PO BEDTIME [facility] Last Admin: 08/17/22 21:42 Dose: 100 mg Duloxetine HCl (Duloxetine Hcl 60 Mg Capsule.Dr) 60 mg PO DAILY [facility] Last Admin: 08/18/22 08:47 Dose: 60 mg Ferrous Sulfate (Ferrous Sulfate 324 Mg Tablet.) 324 mg PO DAILY [facility] Last Admin: 08/18/22 08:47 Dose: 324 mg Fluticasone/Vilanterol (Fluticasone/Vilanterol 200/25 Blst.W.Dev) 1 puff INHALE DAILY [facility] Last Admin: 08/17/22 07:41 Dose: 1 puff Haloperidol (Haloperidol 5 Mg Tablet) 5 mg PO TID PRN PRN Reason: Agitation Last Admin: 08/17/22 12:53 Dose: 5 mg Haloperidol Decanoate (Haloperidol Decanoate 50 Mg/Ml Ampul) 75 mg IM Q7D [facility] Hydroxyzine HCl (Hydroxyzine Hcl 50 Mg Tablet) 50 mg PO BID PRN PRN Reason: Anxiety Last Admin: 08/17/22 12:53 Dose: 50 mg Lactic Acid (Ammonium Lactate 12 % Cream 140 Gm Tube) 1 appl TOPICAL BID PRN; Protocol PRN Reason: Dry Skin [place] Carbonate ([place] Carbonate 300 Mg Capsule) 300 mg PO BID [facility] Last Admin: 08/18/22 08:47 Dose: 300 mg Lorazepam (Lorazepam 1 Mg Tablet) 1 mg PO TID PRN PRN Reason: anxiety Last Admin: 08/17/22 12:53 Dose: 1 mg Magnesium Hydroxide (Milk Of Magnesia 30 Ml Oral.Susp) 30 ml PO DAILY PRN PRN Reason: Constipation Nicotine Polacrilex (Nicotine Polacrilex 2 Mg Gum) 2 mg BUCCAL Q2H PRN PRN Reason: Smoking Cessation Omeprazole (Omeprazole 20 Mg Capsule.) 20 mg PO DAILY [facility] Last Admin: 08/18/22 08:46 Dose: 20 mg Ondansetron HCl (Ondansetron Odt 4 Mg Tab.Rapdis) 4 mg TRANSLINGU Q6H PRN PRN Reason: nausea/vomiting Prazosin HCl (Prazosin Hcl 1 Mg Capsule) 1 mg PO BEDTIME [facility]; Protocol Last Admin: 08/17/22 21:42 Dose: 1 mg Prazosin HCl (Prazosin Hcl 5 Mg Capsule) 15 mg PO BEDTIME [facility]; Protocol Last Admin: 08/17/22 21:42 Dose: 15 mg Trazodone HCl (Trazodone Hcl 100 Mg Tablet) 100 mg PO BEDTIME PRN PRN Reason: insomnia Last Admin: 08/16/22 20:38 Dose: 100 mg Zolpidem Tartrate (Zolpidem Tartrate 5 Mg Tablet) 10 mg PO BEDTIME [facility] Last Admin: 08/17/22 21:41 Dose: 10 mg Allergies Allergies Allergy/AdvReac Type Severity Reaction Status Date / Time carbamazepine [From TEGRETOL] AdvReac Unknown NAUSEA & Verified 05/15/22 19:31 VOMITING Fish Containing Products AdvReac Stomach Verified 05/15/22 19:31 Upset Assessment & Plan Time Spent With Patient Time: Total time managing care of this patient today ____ minutes.
[2022-08-18 10:11] LABS: Free T4 (Free Thyroxine) 0.95 ng/dL (0.71-1.85); Thyroid Stimulating Hormone 3.48 uIU/mL (0.32-4.0)
[2022-08-18 10:20] LABS: Folate 4.3 ng/mL (> or = 4.0); Vitamin B12 211 pg/mL (200-900)
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
--- NOTE | 2022-08-18 13:52 | PC.NURSE ---
when nurse entered room w/ scheduled am medications pt was witnessed hitting head against wall, repetitively but not overly hard. Head wound with bruising noted. Nurse discussed coping skills and pt appeared receptive to advise and medications. Provider notified.
--- NOTE | 2022-08-18 16:37 | PM.EVENT ---
Event Note Date of Service: 08/18/22 Event Note: Patient has done repeated head banging was given Haldol and Ativan when seen she was in better control not overly agitated was able have a conversation no clouding of consciousness moving all extremities alert laceration noted on forehead pt on 1.[address] magdaleno chart reviewed has bacitracin laceration haldol prn agaitation monitor for mental status vhange Time Spent With Patient Time: Total time managing care of this patient today ____ minutes.
[2022-08-18] MEDS: diphenhydrAMINE HCL 25 MG CAPSULE 100 MG PO (19:46)
[2022-08-18] MEDS: Zolpidem Tartrate 5 MG TABLET 10 MG PO (19:48)
[2022-08-18] MEDS: traZODone HCL 100 MG TABLET PO (19:49)
[2022-08-18] MEDS: hydrOXYzine HCL 50 MG TABLET PO (21:51)
[2022-08-18] MEDS: HaloperidoL 5 MG TABLET PO (21:51)
[2022-08-18] MEDS: LORazepam 1 MG TABLET PO (21:51)
[2022-08-19 06:00] VITALS: BP 109/63; PULSE 62; RESP 18; TEMP 36.7; O2SAT 98
[2022-08-19] MEDS: Omeprazole 20 MG CAPSULE.DR PO (08:46)
[2022-08-19] MEDS: Benztropine Mesylate 0.5 MG TABLET PO ×2 (08:46→21:27)
[2022-08-19] MEDS: DULoxetine HCl 60 MG CAPSULE.DR PO (08:46)
[2022-08-19] MEDS: Ferrous Sulfate 324 MG TABLET.DR PO (08:46)
[2022-08-19] MEDS: Lithium Carbonate 300 MG CAPSULE PO ×2 (08:46→21:26)
[2022-08-19] MEDS: LORazepam 1 MG TABLET PO ×3 (08:46→19:49)
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
[2022-08-19] MEDS: HaloperidoL 5 MG TABLET PO ×2 (12:06→19:49)
[2022-08-19] MEDS: hydrOXYzine HCL 50 MG TABLET PO ×2 (12:06→21:27)
[2022-08-19] MEDS: diphenhydrAMINE HCL 25 MG CAPSULE 100 MG PO (21:23)
[2022-08-19] MEDS: Prazosin HCL 5 MG CAPSULE 15 MG PO (21:25)
[2022-08-19] MEDS: traZODone HCL 100 MG TABLET PO (21:27)
[2022-08-19] MEDS: Zolpidem Tartrate 5 MG TABLET 10 MG PO (21:27)
[2022-08-19] MEDS: Prazosin HCL 1 MG CAPSULE PO (21:27)
[2022-08-19] MEDS: Milk of Magnesia 30 ML ORAL.SUSP PO (22:02)
[2022-08-19] MEDS: Acetaminophen 325 MG TABLET 650 MG PO (22:06)
--- NOTE | 2022-08-19 22:58 | PC.NURSE ---
This staff writer was asked to check on patient by staff, staff reported took strings off of N95 mask and was attempting to tie them around her neck. This staff writer pulled covers back and patient was holding bands with her hands. This staff writer cut bands with a lan and released them. PT appeared to be in no distress, respirations even and unlabored- refusing vital signs. Charge aware of incident.
[2022-08-20 07:00] VITALS: BMI 41.1
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
[2022-08-20] MEDS: DULoxetine HCl 60 MG CAPSULE.DR PO (09:19)
[2022-08-20] MEDS: Ferrous Sulfate 324 MG TABLET.DR PO (09:19)
[2022-08-20] MEDS: Benztropine Mesylate 0.5 MG TABLET PO ×2 (09:19→20:38)
[2022-08-20] MEDS: Omeprazole 20 MG CAPSULE.DR PO (09:19)
[2022-08-20] MEDS: Lithium Carbonate 300 MG CAPSULE PO ×2 (09:19→20:38)
[2022-08-20 09:43] VITALS: BP 103/58; PULSE 86; RESP 16; TEMP 36.5; O2SAT 98
[2022-08-20] MEDS: LORazepam 1 MG TABLET PO (13:55)
[2022-08-20] MEDS: hydrOXYzine HCL 50 MG TABLET PO (14:44)
--- NOTE | 2022-08-20 15:03 | PC.NURSE ---
Patient complaint of pain from sprained foot/ankle not xrayed at previous location-MD aware.
[2022-08-20] MEDS: Ziprasidone Mesylate 20 MG VIAL IM (16:01)
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
[2022-08-20 16:46] VITALS: BP 126/64; PULSE 90; TEMP 36.8; O2SAT 96
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
[2022-08-20] MEDS: Zolpidem Tartrate 5 MG TABLET 10 MG PO (20:38)
[2022-08-20] MEDS: Prazosin HCL 5 MG CAPSULE 15 MG PO (20:38)
[2022-08-20] MEDS: diphenhydrAMINE HCL 25 MG CAPSULE 100 MG PO (20:39)
[2022-08-20] MEDS: Prazosin HCL 1 MG CAPSULE PO (20:39)
[2022-08-20] MEDS: traZODone HCL 100 MG TABLET PO (21:20)
--- NOTE | 2022-08-21 | ECG_ITS ---
Test Reason : CHECK QTC Blood Pressure : / mmHG Vent. Rate : 069 BPM Atrial Rate : 069 BPM P-R Int : 144 ms QRS Dur : 068 ms QT Int : 386 ms P-R-T Axes : 050 069 052 degrees QTc Int : 413 ms Normal sinus rhythm Normal ECG When compared with ECG of 29-JUL-2022 00:06, Nonspecific T wave abnormality no longer evident in Anterior leads QT has shortened Referred By: Maurizio Hernández Electronically Signed By:LIZET ANN
[2022-08-21] MEDS: HaloperidoL 5 MG TABLET PO (00:51)
[2022-08-21] MEDS: hydrOXYzine HCL 50 MG TABLET PO ×3 (00:51→23:56)
[2022-08-21] MEDS: DULoxetine HCl 60 MG CAPSULE.DR PO (08:24)
[2022-08-21] MEDS: Benztropine Mesylate 0.5 MG TABLET PO ×2 (08:24→21:43)
[2022-08-21] MEDS: Ferrous Sulfate 324 MG TABLET.DR PO (08:25)
[2022-08-21] MEDS: Omeprazole 20 MG CAPSULE.DR PO (08:25)
[2022-08-21] MEDS: Lithium Carbonate 300 MG CAPSULE PO ×2 (08:25→21:43)
[2022-08-21 08:29] VITALS: PULSE 65; RESP 18; TEMP 36.5; O2SAT 99
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
--- NOTE | 2022-08-21 15:23 | PC.NURSE ---
[place] were removed from patient arms and chest today. All areas are clean and dry.
[2022-08-21 18:00] VITALS: BP 115/68; PULSE 82; TEMP 36.8; O2SAT 98
[2022-08-21] MEDS: Prazosin HCL 1 MG CAPSULE PO (21:39)
[2022-08-21] MEDS: Prazosin HCL 5 MG CAPSULE 15 MG PO (21:40)
[2022-08-21] MEDS: diphenhydrAMINE HCL 25 MG CAPSULE 100 MG PO (21:43)
--- NOTE | 2022-08-21 22:09 | PC.NURSE ---
pt was calm for bit and then became upset because the nurse didn't ask her what time she wanted her meds. pt was upset her meds weren't given at 9pm exactly. pt reported she always gets meds at 9pm. pt got meds at 10pm on previous days. pt began head banging and becoming agitated. pt head banged until she bleed. pt was hard to redirect from head banging. pt calmed down with help from security. pt is currently sleeping.
[2022-08-21] MEDS: traZODone HCL 100 MG TABLET PO (23:56)
[2022-08-22] MEDS: Acetaminophen 325 MG TABLET 650 MG PO ×3 (00:55→23:07)
[2022-08-22] MEDS: traZODone HCL 100 MG TABLET PO (02:39)
[2022-08-22 06:00] VITALS: BP 114/68; PULSE 76; RESP 18; TEMP 36.9; O2SAT 98
[2022-08-22] MEDS: Benztropine Mesylate 0.5 MG TABLET PO ×2 (09:30→20:00)
[2022-08-22] MEDS: DULoxetine HCl 60 MG CAPSULE.DR PO (09:30)
[2022-08-22] MEDS: Ferrous Sulfate 324 MG TABLET.DR PO (09:30)
[2022-08-22] MEDS: Fluticasone/Vilanterol 200/25 BLST.W.DEV 1 PUFF INHALE (09:30)
[2022-08-22] MEDS: Lithium Carbonate 300 MG CAPSULE PO (09:31)
[2022-08-22] MEDS: Omeprazole 20 MG CAPSULE.DR PO (09:31)
--- NOTE | 2022-08-22 10:24 | P.PNPSI_ITS ---
Subjective Subjective Date of Service: 08/22/22 Reason For Visit: Schizoaffective D/O PTSD Borderline Persosnality Interim History: Last night head banging. Patient said she is trying very hard not to but says she has been doing so since she was 7 years old it is very hard to stop. Priti ent accepts that she needs to stop Bang her head if she is going to get ECT. Patient says overall she is feeling better. She reiterates how much she wants to be a healthy stable person and does not want to hurt herself. She keeps hoping to achieve this goal and gets frustrated when she succumbs to self-harm. Reviewed medications with music writer and she is not sure why she is on lithium; she agreed to change it long-acting so she can get only once a day and then move it to the afternoon which is typically when patient starts to get dysregulated. Also agrees to schedule clonidine Discussed diagnosis and patient said she does not think she is really bipolar or schizoaffective her schizophrenic. She herself asserts she thinks it is probably just PTSD from trauma, borderline personality disorder... and poor coping skills. Mental Status Exam Mental Status Exam Narrative: Pt is alert and oriented; behavior vacillates, sometimes calm, reasonable and engaged to dysregulated and intermittently self-harming (this is baseline behavior); dressed in casual attire with unkempt hair but adequate hygiene; numerous of scars up and down bilateral forearms from hx of superficial cutting; mood is described as better and affect congruent , brighter; eye contact appropriate; Speech is normal volume, rate, prosody when calm; no psychomotor retardation present; thought process is goal directed; Thought content on dealing with struggles, coping with feelings; how to cope with tense situation at long-term w/ antagonistic peer; intermittent self-harm; otherwise pertinent to relevant topics and without any delusional content, paranoid ideations or grandiosity; intermittent SI (which is chronic) but none currently; no HI. No AH; Patients insight and judgment are impaired but adequate and at baseline Diagnostics Vital Signs (24Hr): Vital Signs - 24 hr 08/21/22 18:00 08/22/22 06:00 Temperature 98.2 F 98.4 F Pulse Rate 82 76 Respiratory Rate 18 Blood Pressure 115/68 114/68 Pulse Oximetry 98 98 Oxygen Delivery Method Room Air BMI result Body Mass Index 41.1 Medications Medications Current Medications Acetaminophen (Acetaminophen 325 Mg Tablet) 650 mg PO Q6H PRN PRN Reason: pain Last Admin: 08/22/22 00:55 Dose: 650 mg Acetaminophen (Acetaminophen 325 Mg Tablet) 650 mg PO Q6H PRN PRN Reason: Headache/Pain Mild Scale (1-3) Al Hydroxide/Mg Hydroxide (Magnesium Hydrox/Alum Hydrox 30 Ml Oral.Susp) 30 ml PO Q6H PRN PRN Reason: Heartburn/Nausea Albuterol Sulfate (Albuterol Sulfate 90 Mcg 8 Gm Inhaler) 2 puff INHALE BID PRN PRN Reason: Wheezing Bacitracin (Bacitracin Oint 14 Gm Tube) 1 appl TOPICAL BID PRN; Protocol PRN Reason: Wound Healing Last Admin: 08/16/22 08:44 Dose: 1 appl Benzonatate (Benzonatate 100 Mg Capsule) 100 mg PO TID PRN PRN Reason: cough Benztropine Mesylate (Benztropine Mesylate 0.5 Mg Tablet) 0.5 mg PO BID [facility] Last Admin: 08/22/22 09:30 Dose: 0.5 mg Clonidine HCl (Clonidine Hcl 0.1 Mg Tablet) 0.1 mg PO BID PRN; Protocol PRN Reason: anxiety Last Admin: 08/16/22 13:32 Dose: 0.1 mg Diphenhydramine HCl (Diphenhydramine Hcl 25 Mg Capsule) 100 mg PO BEDTIME [facility] Last Admin: 08/21/22 21:43 Dose: 100 mg Duloxetine HCl (Duloxetine Hcl 60 Mg Capsule.) 60 mg PO DAILY [facility] Last Admin: 08/22/22 09:30 Dose: 60 mg Ferrous Sulfate (Ferrous Sulfate 324 Mg Tablet.) 324 mg PO DAILY [facility] Last Admin: 08/22/22 09:30 Dose: 324 mg Fluticasone/Vilanterol (Fluticasone/Vilanterol 200/25 Blst.W.Dev) 1 puff INHALE DAILY [facility] Last Admin: 08/22/22 09:30 Dose: 1 puff Haloperidol (Haloperidol 5 Mg Tablet) 5 mg PO TID PRN PRN Reason: Agitation Last Admin: 08/21/22 00:51 Dose: 5 mg Haloperidol Decanoate (Haloperidol Decanoate 50 Mg/Ml Ampul) 75 mg IM Q28D [facility] Last Admin: 08/21/22 16:30 Dose: 75 mg Hydroxyzine HCl (Hydroxyzine Hcl 50 Mg Tablet) 50 mg PO BID PRN PRN Reason: Anxiety Last Admin: 08/21/22 23:56 Dose: 50 mg Lactic Acid (Ammonium Lactate 12 % Cream 140 Gm Tube) 1 appl TOPICAL BID PRN; Protocol PRN Reason: Dry Skin [place] Carbonate ([place] Carbonate 300 Mg Capsule) 300 mg PO BID [facility] Last Admin: 08/22/22 09:31 Dose: 300 mg Magnesium Hydroxide (Milk Of Magnesia 30 Ml Oral.Susp) 30 ml PO DAILY PRN PRN Reason: Constipation Last Admin: 08/19/22 22:02 Dose: 30 ml Nicotine Polacrilex (Nicotine Polacrilex 2 Mg Gum) 2 mg BUCCAL Q2H PRN PRN Reason: Smoking Cessation Omeprazole (Omeprazole 20 Mg Capsule.Dr) 20 mg PO DAILY [facility] Last Admin: 08/22/22 09:31 Dose: 20 mg Ondansetron HCl (Ondansetron Odt 4 Mg Tab.Rapdis) 4 mg TRANSLINGU Q6H PRN PRN Reason: nausea/vomiting Prazosin HCl (Prazosin Hcl 1 Mg Capsule) 1 mg PO BEDTIME [facility]; Protocol Last Admin: 08/21/22 21:39 Dose: 1 mg Prazosin HCl (Prazosin Hcl 5 Mg Capsule) 15 mg PO BEDTIME [facility]; Protocol Last Admin: 08/21/22 21:40 Dose: 15 mg Trazodone HCl (Trazodone Hcl 100 Mg Tablet) 100 mg PO BEDTIME PRN PRN Reason: insomnia Last Admin: 08/22/22 02:39 Dose: 100 mg Allergies Allergies Allergy/AdvReac Type Severity Reaction Status Date / Time carbamazepine [From TEGRETOL] AdvReac Unknown NAUSEA & Verified 05/15/22 19:31 VOMITING Fish Containing Products AdvReac Stomach Verified 05/15/22 19:31 Upset Assessment & Plan Assessment & Plan (1) Chronic post-traumatic stress disorder (PTSD): Status: Chronic Code(s): F43.12 - Post-traumatic stress disorder, chronic (2) Borderline personality disorder: Status: Chronic Code(s): F60.3 - Borderline personality disorder Plan Pt is a 37 y.o. female, ? PTSD with extensive trauma history, and BPD, (carries a dx of schizoaffective DO), depressive type,chronic SI, chronic self-harming behaviors and multiple inpatient admissions who re-presents a few days after discharging from the ED for continued ?superficially cutting and increased SI in the face of ongoing psychosocial stressor from peer at long-term. -numerous admissions with similar presentations Hospital course: 08.19.22 last night self-harming. Patient says she is going to continue trying not to do so and if she can remain with good behavioral and impulse control for 3 days, she hopes she can return to long-term. Patient is trying to figure out how she will be able to coexist with antagonistic peer at long-term. Intermittent SI which is chronic.; intermittent self-harming thoughts/urges but patient says she is trying to resist. 08/20/22 pt vacillates between calm and dysregulated; still self-harming (not far from baseline) 08/21/2022 patient a little more calm today and hoping for discharge early next week. Discussed ECT and how it helps her stay safe and without any self-harming behaviors for several months afterwards; long-term staff corroborates -08/21/22 ekg:?? QTc Int : 413 ms 08/22 banged head last night but patient is trying hard to remain safe. Wants ECT. Moving medications to afternoon to help with afternoon dysregulation which is her pattern PLAN: CV 1:1 sitter for now (self-harming behaviors); common for her admissions continue home medication regimen discuss plan w/ staff at long-term can come off isolation (10 days since covid + test; no symptoms) -ECT consult Date of Service: 08/21/22 Procedure(s): ECG 12 lead EKG Vent. Rate : 069 BPM ? ? Atrial Rate : 069 BPM ?? P-R Int : 144 ms? QRS Dur : 068 ms ? ? QT Int : 386 ms ? ? ? P-R-T Axes : 050 069 052 degrees ?? QTc Int : 413 ms ? Normal sinus rhythm Normal ECG When compared with ECG of 29-JUL-2022 00:06, Nonspecific T wave abnormality no longer evident in Anterior leads QT has shortened Patient educated on: diagnosis, medication risk/benefits and therapeutic strategies Informed Consent: understands Reason for contiued inpatient stay Substantial Risk for: rapid decompensation Time Spent With Patient Time: Total time managing care of this patient today ____ minutes.
[2022-08-22] MEDS: Milk of Magnesia 30 ML ORAL.SUSP PO (11:02)
[2022-08-22 12:19] VITALS: BP 124/68
[2022-08-22] MEDS: cloNIDine HCL 0.1 MG TABLET PO (12:21)
[2022-08-22] MEDS: Lithium Carbonate ER 300 MG TABLET.ER 600 MG PO (16:41)
[2022-08-22] MEDS: HaloperidoL 5 MG TABLET PO ×2 (18:14→20:30)
[2022-08-22] MEDS: Sodium Phosphate,Mono-Dibasic 133 ML ENEMA PR (19:16)
[2022-08-22 20:00] VITALS: BP 126/78; PULSE 72; RESP 16; TEMP 36.2
[2022-08-22] MEDS: Prazosin HCL 5 MG CAPSULE 15 MG PO (20:00)
[2022-08-22] MEDS: Prazosin HCL 1 MG CAPSULE PO (20:00)
[2022-08-22] MEDS: diphenhydrAMINE HCL 25 MG CAPSULE 100 MG PO (20:01)
[2022-08-23] MEDS: HaloperidoL 5 MG TABLET PO ×2 (03:31→16:12)
[2022-08-23] MEDS: cloNIDine HCL 0.1 MG TABLET PO ×3 (03:32→20:43)
[2022-08-23] MEDS: hydrOXYzine HCL 50 MG TABLET PO ×3 (03:32→23:47)
[2022-08-23 06:00] VITALS: BP 125/87; PULSE 73; RESP 16; TEMP 36.7; O2SAT 96
[2022-08-23] MEDS: Acetaminophen 325 MG TABLET 650 MG PO (09:23)
[2022-08-23] MEDS: Ferrous Sulfate 324 MG TABLET.DR PO (09:23)
[2022-08-23] MEDS: Fluticasone/Vilanterol 200/25 BLST.W.DEV 1 PUFF INHALE (09:24)
[2022-08-23] MEDS: DULoxetine HCl 60 MG CAPSULE.DR PO (09:24)
[2022-08-23] MEDS: Benztropine Mesylate 0.5 MG TABLET PO ×2 (09:24→20:43)
[2022-08-23] MEDS: Omeprazole 20 MG CAPSULE.DR PO (09:24)
--- NOTE | 2022-08-23 10:50 | P.PNPSI_ITS ---
Subjective Subjective Date of Service: 08/23/22 Reason For Visit: Schizoaffective D/O PTSD Borderline Persosnality Interim History: Patient said that she is having overwhelming urges to self-harm however she is trying very hard not to. Instead of banging her head she just rubbed her fore head on the wall, where she has a scab. Patient said she did this to avoid banging her head. Patient very much wants to be able to get ECT and to remain on the unit for it. Patient did superficially cut her arm. Cornice Upholsterer and patient discussed strategies to remain safe and patient said she will continue to try Mental Status Exam Mental Status Exam Narrative: Pt is alert and oriented; behavior vacillates, sometimes calm, reasonable and engaged to dysregulated and intermittently self-harming (this is baseline behavior); dressed in casual attire with unkempt hair but adequate hygiene; numerous of scars up and down bilateral forearms from hx of superficial cutting; mood is described as better and affect congruent , brighter; eye contact appropriate; Speech is normal volume, rate, prosody when calm; no psychomotor retardation present; thought process is goal directed; Thought content on de aling with struggles, coping with feelings; how to cope with tense situation at correction w/ antagonistic peer; intermittent self-harm; otherwise pertinent to relevant topics and without any delusional content, paranoid ideations or grandiosity; intermittent SI (which is chronic) but none currently; no HI. No AH; Patients insight and judgment are impaired but adequate and at baseline Diagnostics Vital Signs (24Hr): Vital Signs - 24 hr 08/22/22 12:19 08/22/22 20:00 08/23/22 06:00 Temperature 97.2 F 98.1 F Pulse Rate 72 73 Respiratory Rate 16 16 Blood Pressure 124/68 126/78 125/87 Pulse Oximetry 96 Oxygen Delivery Method Room Air BMI result Body Mass Index 41.1 Medications Medications Current Medications Acetaminophen (Acetaminophen 325 Mg Tablet) 650 mg PO Q6H PRN PRN Reason: Headache/Pain Mild Scale (1-3) Last Admin: 08/23/22 09:23 Dose: 650 mg Al Hydroxide/Mg Hydroxide (Magnesium Hydrox/Alum Hydrox 30 Ml Oral.Susp) 30 ml PO Q6H PRN PRN Reason: Heartburn/Nausea Albuterol Sulfate (Albuterol Sulfate 90 Mcg 8 Gm Inhaler) 2 puff INHALE BID PRN PRN Reason: Wheezing Benzonatate (Benzonatate 100 Mg Capsule) 100 mg PO TID PRN PRN Reason: cough Benztropine Mesylate (Benztropine Mesylate 0.5 Mg Tablet) 0.5 mg PO BID [facility] Last Admin: 08/23/22 09:24 Dose: 0.5 mg Clonidine HCl (Clonidine Hcl 0.1 Mg Tablet) 0.1 mg PO BID@1400,2000 PRN; Prot ocol PRN Reason: anxiety Last Admin: 08/23/22 03:32 Dose: 0.1 mg Diphenhydramine HCl (Diphenhydramine Hcl 25 Mg Capsule) 100 mg PO BEDTIME [facility] Last Admin: 08/22/22 20:01 Dose: 100 mg Duloxetine HCl (Duloxetine Hcl 60 Mg Capsule.) 60 mg PO DAILY [facility] Last Admin: 08/23/22 09:24 Dose: 60 mg Ferrous Sulfate (Ferrous Sulfate 324 Mg Tablet.) 324 mg PO DAILY [facility] Last Admin: 08/23/22 09:23 Dose: 324 mg Fluticasone/Vilanterol (Fluticasone/Vilanterol 200/25 Blst.W.Dev) 1 puff INHALE DAILY [facility] Last Admin: 08/23/22 09:24 Dose: 1 puff Haloperidol (Haloperidol 5 Mg Tablet) 5 mg PO TID PRN PRN Reason: Agitation Last Admin: 08/23/22 03:31 Dose: 5 mg Haloperidol Decanoate (Haloperidol Decanoate 50 Mg/Ml Ampul) 75 mg IM Q28D [facility] Last Admin: 08/21/22 16:30 Dose: 75 mg Hydroxyzine HCl (Hydroxyzine Hcl 50 Mg Tablet) 50 mg PO BID PRN PRN Reason: Anxiety Last Admin: 08/23/22 03:32 Dose: 50 mg Lactic Acid (Ammonium Lactate 12 % Cream 140 Gm Tube) 1 appl TOPICAL BID PRN; Protocol PRN Reason: Dry Skin [place] Carbonate ([place] Carbonate Er 300 Mg Tablet.Er) 600 mg PO DAILY@1600 [facility] Last Admin: 08/22/22 16:41 Dose: 600 mg Magnesium Hydroxide (Milk Of Magnesia 30 Ml Oral.Susp) 30 ml PO DAILY PRN PRN Reason: Constipation Last Admin: 08/22/22 11:02 Dose: 30 ml Nicotine Polacrilex (Nicotine Polacrilex 2 Mg Gum) 2 mg BUCCAL Q2H PRN PRN Reason: Smoking Cessation Omeprazole (Omeprazole 20 Mg Capsule.Dr) 20 mg PO DAILY [facility] Last Admin: 08/23/22 09:24 Dose: 20 mg Ondansetron HCl (Ondansetron Odt 4 Mg Tab.Rapdis) 4 mg TRANSLINGU Q6H PRN PRN Reason: nausea/vomiting Prazosin HCl (Prazosin Hcl 1 Mg Capsule) 1 mg PO BEDTIME [facility]; Protocol Last Admin: 08/22/22 20:00 Dose: 1 mg Prazosin HCl (Prazosin Hcl 5 Mg Capsule) 15 mg PO BEDTIME [facility]; Protocol Last Admin: 08/22/22 20:00 Dose: 15 mg Sodium Biphosphate/Sodium Phosphate (Sodium Phosphate,[place]ibasic 133 Ml Enema) 133 ml PA ONCE PRN PRN Reason: Constipation Last Admin: 08/22/22 19:16 Dose: 133 ml Trazodone HCl (Trazodone Hcl 100 Mg Tablet) 100 mg PO BEDTIME PRN PRN Reason: insomnia Last Admin: 08/22/22 02:39 Dose: 100 mg Allergies Allergies Allergy/AdvReac Type Severity Reaction Status Date / Time carbamazepine [From TEGRETOL] AdvReac Unknown NAUSEA & Verified 05/15/22 19:31 VOMITING Fish Containing Products AdvReac Stomach Verified 05/15/22 19:31 Upset Assessment & Plan Assessment & Plan (1) Chronic post-traumatic stress disorder (PTSD): Status: Chronic Code(s): F43.12 - Post-traumatic stress disorder, chronic (2) Borderline personality disorder: Status: Chronic Code(s): F60.3 - Borderline personality disorder Plan Pt is a 37 y.o. female, ? PTSD with extensive trauma history, and BPD, (carries a dx of schizoaffective DO), depressive type,chronic SI, chronic self-harming behaviors and multiple inpatient admissions who re-presents a few days after discharging from the ED for continued ?superficially cutting and increased SI in the face of ongoing psychosocial stressor from peer at correction. -numerous admissions with similar presentations Hospital course: 08.19.22 last night self-harming. Patient says she is going to continue trying not to do so and if she can remain with good behavioral and impulse control for 3 days, she hopes she can return to correction. Patient is trying to figure out how she will be able to coexist with antagonistic peer at correction. Intermittent SI which is chronic.; intermittent self-harming thoughts/urges but patient says she is trying to resist. 08/20/22 pt vacillates between calm and dysregulated; still self-harming (not far from baseline) 08/21/2022 patient a little more calm today and hoping for discharge early next week. Discussed ECT and how it helps her stay safe and without any self-harming behaviors for several months afterwards; correction staff corroborates -08/21/22 ekg:?? QTc Int : 413 ms 08/22 banged head last night but patient is trying hard to remain safe. Wants ECT. Moving medications to afternoon to help with afternoon dysregulation which is her pattern 08/23 patient remains with desire to self-harm but is trying hard not to and has not Banged her head, though she did superficially cut her arm PLAN: CV 1:1 sitter for now (self-harming behaviors); common for her admissions continue home medication regimen discuss plan w/ staff at correction can come off isolation (10 days since covid + test; no symptoms) -ECT consult Date of Service: 08/21/22 Procedure(s): ECG 12 lead EKG Vent. Rate : 069 BPM ? ? Atrial Rate : 069 BPM ?? P-R Int : 144 ms? QRS Dur : 068 ms ? ? QT Int : 386 ms ? ? ? P-R-T Axes : 050 069 052 degrees ?? QTc Int : 413 ms ? Normal sinus rhythm Normal ECG When compared with ECG of 29-JUL-2022 00:06, Nonspecific T wave abnormality no longer evident in Anterior leads QT has shortened Patient educated on: diagnosis, ECT and therapeutic strategies Informed Consent: understands Reason for contiued inpatient stay Substantial Risk for: rapid decompensation Time Spent With Patient Time: Total time managing care of this patient today ____ minutes.
[2022-08-23] MEDS: Milk of Magnesia 30 ML ORAL.SUSP PO (11:13)
--- NOTE | 2022-08-23 14:22 | P.CONHOSP_ITS ---
History of Present Illness Data of Consult Service Date: 08/23/22 Requesting physician: Maurizio Hernández Primary Care Provider: Unknown Physician HPI Reason for consult: ECT evaluation 37 year old female with history of PTSD, anxiety, self-injurious behavior, BPD, schizoaffective disorder, GERD, asthma/COPD overlap syndrome, and morbid obesity admitted to psychiatry with consult to medicine for ECT evaluation. Pt reports she has undergone ECT in the past within the last years and feels this was helpful, denies adverse response. Has been banging her head recently and has laceration on forehead covered in bandage. She has no known cardiovascular disease and denies history of seizures. Reports reasonable control of her asthma symptoms with occassional wheezing that usually resolves with rest or albuterol use. She is able to climb a flight of stairs without significant shortness of breath or chest pain. Denies any [place]AM, orthopnea, PND. Review of Systems Review of Systems: Yes all other systems are reviewed and are negative [facility] Medical History Acute post-traumatic stress disorder Adjustment disorder Anxiety Asthma Borderline personality disorder Chronic post-traumatic stress disorder (PTSD) COPD (chronic obstructive pulmonary disease) Depression GERD (gastroesophageal reflux disease) Increased BMI Injury, self-inflicted Intentional self-harm PTSD (post-traumatic stress disorder) Recurrent major depression-severe Schizoaffective disorder Self-harming behavior Suicidal ideation Suicidal ideation Family History (Updated 08/23/22 @ 14:26 by JUANITO Marquez) Mother Brain cancer Other No family history of cardiac disease Social History Household Members: Other Household Members Other:: care home Housing: Assisted Living Facility Housing Other:: care home Do you presently have visiting nurse or other home services: No Alcohol intake: unknown Patient Tobacco Use Status: Current everyday Tobacco user Tobacco use type: Cigarette Cigarette Packs Per Day: 0.5 Cigarettes Per Day: 10.0 Years Smoked: 17 Smoked in Last 30 Days: Yes e-Cigarette/Vaping Use: Never Used Patient Interested in Nicotine Replacement: Yes (patch and gum) Patient Given Instructions on How to Stop Smoking: Yes Date Education Initiated: 08/17/22 Second Hand Smoke Exposure: Yes Use of substances other than those prescribed or required for medical reasons: Yes Substance Use Type: Marijuana Substance Use Frequency: Daily Last Used Substance: Just Prior to Admission Currently Displaying Signs/Symptoms of Drug Intoxication Withdrawal: No Any prior treatment program specific to substance use: No Have you been hit, kicked, punched, or otherwise hurt by someone within the past year? If so, by whom?: No Do you feel safe in your current relationship?: No Current Relationship Is there a partner from a previous relationship who is making you feel unsafe now?: No Are you made to feel afraid or neglected: No Advance Directives: No Advance Directives Information Provided: No Do you have thoughts of harming others: None Do you have a plan to hurt others: No Plan Recently lost weight without trying: No How much weight loss: Not applicable Eating poorly because of decreased appetite: No Nutrition screen score: 0 Nutrition Risks: No Nutritional Risk Patient : No : No Poor oral hygiene: No service: No Sexual orientation: Straight/Heterosexual Meds Allergies Allergy/AdvReac Type Severity Reaction Status Date / Time carbamazepine [From TEGRETOL] AdvReac Unknown NAUSEA & Verified 05/15/22 19:31 VOMITING Fish Containing Products AdvReac Stomach Verified 05/15/22 19:31 Upset Active Medications: Current Medications Acetaminophen (Acetaminophen 325 Mg Tablet) 650 mg PO Q6H PRN PRN Reason: Headache/Pain Mild Scale (1-3) Last Admin: 08/23/22 09:23 Dose: 650 mg Al Hydroxide/Mg Hydroxide (Magnesium Hydrox/Alum Hydrox 30 Ml Oral.Susp) 30 ml PO Q6H PRN PRN Reason: Heartburn/Nausea Albuterol Sulfate (Albuterol Sulfate 90 Mcg 8 Gm Inhaler) 2 puff INHALE BID PRN PRN Reason: Wheezing Benzonatate (Benzonatate 100 Mg Capsule) 100 mg PO TID PRN PRN Reason: cough Benztropine Mesylate (Benztropine Mesylate 0.5 Mg Tablet) 0.5 mg PO BID [facility] Last Admin: 08/23/22 09:24 Dose: 0.5 mg Clonidine HCl (Clonidine Hcl 0.1 Mg Tablet) 0.1 mg PO TID [facility]; Protocol Diphenhydramine HCl (Diphenhydramine Hcl 25 Mg Capsule) 100 mg PO BEDTIME [facility] Last Admin: 08/22/22 20:01 Dose: 100 mg Duloxetine HCl (Duloxetine Hcl 60 Mg Capsule.) 60 mg PO DAILY [facility] Last Admin: 08/23/22 09:24 Dose: 60 mg Ferrous Sulfate (Ferrous Sulfate 324 Mg Tablet.) 324 mg PO DAILY [facility] Last Admin: 08/23/22 09:23 Dose: 324 mg Fluticasone/Vilanterol (Fluticasone/Vilanterol 200/25 Blst.W.Dev) 1 puff INHALE DAILY [facility] Last Admin: 08/23/22 09:24 Dose: 1 puff Haloperidol (Haloperidol 5 Mg Tablet) 5 mg PO TID PRN PRN Reason: Agitation Last Admin: 08/23/22 03:31 Dose: 5 mg Haloperidol Decanoate (Haloperidol Decanoate 50 Mg/Ml Ampul) 75 mg IM Q28D [facility] Last Admin: 08/21/22 16:30 Dose: 75 mg Hydroxyzine HCl (Hydroxyzine Hcl 50 Mg Tablet) 50 mg PO BID PRN PRN Reason: Anxiety Last Admin: 08/23/22 03:32 Dose: 50 mg Lactic Acid (Ammonium Lactate 12 % Cream 140 Gm Tube) 1 appl TOPICAL BID PRN; Protocol PRN Reason: Dry Skin [place] Carbonate ([place] Carbonate Er 300 Mg Tablet.Er) 600 mg PO DAILY@1600 [facility] Last Admin: 08/22/22 16:41 Dose: 600 mg Magnesium Hydroxide (Milk Of Magnesia 30 Ml Oral.Susp) 30 ml PO DAILY PRN PRN Reason: Constipation Last Admin: 08/23/22 11:13 Dose: 30 ml Nicotine Polacrilex (Nicotine Polacrilex 2 Mg Gum) 2 mg BUCCAL Q2H PRN PRN Reason: Smoking Cessation Omeprazole (Omeprazole 20 Mg Capsule.) 20 mg PO DAILY [facility] Last Admin: 08/23/22 09:24 Dose: 20 mg Ondansetron HCl (Ondansetron Odt 4 Mg Tab.Rapdis) 4 mg TRANSLINGU Q6H PRN PRN Reason: nausea/vomiting Prazosin HCl (Prazosin Hcl 1 Mg Capsule) 1 mg PO BEDTIME [facility]; Protocol Last Admin: 08/22/22 20:00 Dose: 1 mg Prazosin HCl (Prazosin Hcl 5 Mg Capsule) 15 mg PO BEDTIME [facility]; Protocol Last Admin: 08/22/22 20:00 Dose: 15 mg Sodium Biphosphate/Sodium Phosphate (Sodium Phosphate,[place]-Dibasic 133 Ml Enema) 133 ml [place] ONCE PRN PRN Reason: Constipation Last Admin: 08/22/22 19:16 Dose: 133 ml Trazodone HCl (Trazodone Hcl 50 Mg Tablet) 150 mg PO BEDTIME [facility] Home Medications Medication Instructions Recorded Confirmed Last Taken Type acetaminophen 500 mg tablet 1 tab PO Q6H PRN pain 08/14/22 08/15/22 Unknown History albuterol sulfate 90 mcg/actuation 2 puff inhalation BID PRN Wheezing 08/14/22 08/15/22 Unknown History aerosol inhaler (ProAir HFA) ammonium lactate 12 % topical cream 1 appl topical BID PRN Dry Skin 08/14/22 08/15/22 Unknown History bacitracin 500 unit/gram topical 1 appl topical BID PRN Wound 08/14/22 08/15/22 Unknown History ointment Healing benzonatate 100 mg capsule 1 cap PO TID PRN cough 08/14/22 08/15/22 Unknown His tory benztropine 0.5 mg tablet 1 tab PO BID 08/14/22 08/15/22 Unknown History clonidine HCl 0.1 mg tablet 1 tab PO BID PRN anxiety 08/14/22 08/15/22 Unknown History diphenhydramine HCl 50 mg capsule 2 cap PO BEDTIME 08/14/22 08/15/22 Unknown History (Banophen) duloxetine 60 mg capsule,delayed 1 cap PO QAM 08/14/22 08/15/22 Unknown History release ferrous sulfate 325 mg (65 mg 1 tab PO QAM 08/14/22 08/15/22 Unknown History iron) tablet,delayed release fluticasone propionate 230 2 puff inhalation BID 08/14/22 08/15/22 Unknown History mcg-salmeterol 21 mcg/actuation HFA inhaler (Advair HFA) haloperidol 5 mg tablet 1 tab PO TID PRN Agitation 08/14/22 08/15/22 Unknown History haloperidol decanoate 100 mg/mL 0.75 ml IM QWEEK 08/14/22 08/15/22 Unknown History intramuscular solution hydroxyzine pamoate 50 mg capsule 1 cap PO BID PRN Anxiety 08/14/22 08/15/22 Unknown History lithium carbonate 300 mg tablet 1 tab PO BID 08/14/22 08/15/22 Unknown History lorazepam 1 mg tablet 1 tab PO TID PRN anxiety 08/14/22 08/15/22 Unknown History nicotine (polacrilex) 2 mg gum 2 mg buccal Q2H PRN Smoking 08/14/22 08/15/22 Unknown History Cessation omeprazole 20 mg tablet,delayed 20 mg PO DAILY 08/14/22 08/15/22 Unknown History release ondansetron HCl 4 mg tablet 1 tab PO Q6H PRN nausea/vomiting 08/14/22 08/15/22 Unknown History prazosin 1 mg capsule 1 cap PO BEDTIME 08/14/22 08/15/22 Unknown History prazosin 5 mg capsule 3 cap PO BEDTIME 08/14/22 08/15/22 Unknown History trazodone 50 mg tablet 2 tab PO BEDTIME PRN insomnia 08/14/22 08/15/22 Unknown History zolpidem 10 mg tablet 1 tab PO BEDTIME 08/14/22 08/15/22 Unknown History Physical Exam Vital Signs and Narrative: Vital Signs: Last Vital Signs Temp 98.1 F 08/23/22 06:00 Pulse 73 08/23/22 06:00 Resp 16 08/23/22 06:00 BP 125/87 08/23/22 06:00 Pulse Ox 96 08/23/22 06:00 O2 Del Method 08/23/22 06:00 BMI result Body Mass Index 41.1 Constitutional - Awake and Alert, No apparent distress Eyes - PERRLA, EOMI Cardiovascular - S1S2, RRR, No edema Respiratory - Normal lung expansion, Normal respiratory effort, No respiratory distress, CTA bilaterally Extremities - no calf tenderness bilaterally, no swelling Skin - Warm/Dry Neurological - Alert & oriented x3, CN II-XII in tact Psychological - Appropriate affect, poor eye contact Assessment and Plan (1) Routine medical exam: Status: Acute Plan 37 year old female with history of PTSD, anxiety, self-injurious behavior, BPD, schizoaffective disorder, GERD, asthma/COPD overlap syndrome, and morbid obesity admitted to psychiatry with consult to medicine for ECT evaluation. #depression/SI/BPD/schizoaffective disorder -Plan per psychiatry -No medical contraindication to patient undergoing ECT based on exam and patient history Thank you for allowing me to participate in this consult. Signing off at this time. Please do not hesitate to call for further questions. Time Spent With Patient Time: Total time managing care of this patient today ____ minutes.
[2022-08-23] MEDS: Lithium Carbonate ER 300 MG TABLET.ER 600 MG PO (15:38)
--- NOTE | 2022-08-23 16:14 | PC.NURSE ---
pt found piece of broken floor and attempted to self harm; superficial wounds noted to left anterior hand.
--- NOTE | 2022-08-23 16:23 | PC.NURSE ---
pt reports she has numerous razors hidden around her room @ [facility] but was unabe to specify directly where they were located, they're in prerolled containers. They might be in my dresser
[2022-08-23 18:44] VITALS: BP 113/65; PULSE 70; RESP 16; TEMP 36.7; O2SAT 96
[2022-08-23] MEDS: traZODone HCL 50 MG TABLET 150 MG PO (20:43)
[2022-08-23] MEDS: Prazosin HCL 1 MG CAPSULE PO (20:44)
[2022-08-23] MEDS: diphenhydrAMINE HCL 25 MG CAPSULE 100 MG PO (20:44)
[2022-08-23] MEDS: Prazosin HCL 5 MG CAPSULE 15 MG PO (20:44)
[2022-08-23] MEDS: Fluconazole 150 MG TABLET PO (21:05)
[2022-08-24] MEDS: traZODone HCL 50 MG TABLET 150 MG PO ×2 (01:25→21:16)
[2022-08-24 06:00] VITALS: BP 126/72; PULSE 75; RESP 18
[2022-08-24] MEDS: Omeprazole 20 MG CAPSULE.DR PO (08:08)
[2022-08-24] MEDS: cloNIDine HCL 0.1 MG TABLET PO ×3 (08:08→21:18)
[2022-08-24] MEDS: HaloperidoL 5 MG TABLET PO ×2 (08:08→19:11)
[2022-08-24] MEDS: Ferrous Sulfate 324 MG TABLET.DR PO (08:08)
[2022-08-24] MEDS: DULoxetine HCl 60 MG CAPSULE.DR PO (08:08)
[2022-08-24] MEDS: Benztropine Mesylate 0.5 MG TABLET PO ×2 (08:09→21:47)
[2022-08-24] MEDS: Fluticasone/Vilanterol 200/25 BLST.W.DEV 1 PUFF INHALE (08:09)
[2022-08-24] MEDS: Acetaminophen 325 MG TABLET 650 MG PO ×2 (08:49→16:10)
--- NOTE | 2022-08-24 12:46 | HO.PSYCHPN ---
Subjective Subjective Date of Service: 08/24/22 Reason For Visit: Schizoaffective D/O PTSD Borderline Persosnality Interim History: Patient remains with significant urges to self-harm however says again she is working hard to stay safe; no self-harming behaviors thus far. She asks about maybe trying Ritalin since she reports a diagnosis of ADHD and was on stimulant medication as a child. No substance abuse history Mental Status Exam Mental Status Exam Narrative: Pt is alert and oriented; behavior vacillates, sometimes calm, reasonable and engaged to dysregulated and intermittently self-harming (this is baseline behavior); dressed in casual attire with unkempt hair but adequate hygiene; numerous of scars up and down bilateral forearms from hx of superficial cutting; mood is described as better and affect congruent , brighter; eye contact appropriate; Speech is normal volume, rate, prosody when calm; no psychomotor retardation present; thought process is goal directed; Thought content on dealing with struggles, coping with feelings; how to cope with tense situation at senior living w/ antagonistic peer; intermittent self-harm; otherwise pertinent to relevant topics and without any delusional content, paranoid ideations or grandiosity; intermittent SI (which is chronic) but none currently; no HI. No AH; Patients insight and judgment are impaired but adequate and at baseline Diagnostics Vital Signs (24Hr): Vital Signs - 24 hr 08/24/22 13:44 08/24/22 18:00 08/25/22 08:06 Temperature 97.5 F 98.1 F Pulse Rate 80 59 86 Respiratory Rate 18 16 Blood Pressure 141/73 H 117/84 107/63 Pulse Oximetry 100 96 Oxygen Delivery Method Room Air Room Air BMI result Body Mass Index 41.1 Labs Labs: Laboratory Results - last 48 hr 08/16/22 00:59 Urine Fentanyl Screen SEE NOTE Urine Fentanyl NEGATIVE Ur Norfentanyl Quant NEGATIVE Medications Medications Current Medications Acetaminophen (Acetaminophen 325 Mg Tablet) 650 mg PO Q6H PRN PRN Reason: Headache/Pain Mild Scale (1-3) Last Admin: 08/24/22 16:10 Dose: 650 mg Al Hydroxide/Mg Hydroxide (Magnesium Hydrox/Alum Hydrox 30 Ml Oral.Susp) 30 ml PO Q6H PRN PRN Reason: Heartburn/Nausea Albuterol Sulfate (Albuterol Sulfate 90 Mcg 8 Gm Inhaler) 2 puff INHALE BID PRN PRN Reason: Wheezing Benzonatate (Benzonatate 100 Mg Capsule) 100 mg PO TID PRN PRN Reason: cough Benztropine Mesylate (Benztropine Mesylate 0.5 Mg Tablet) 0.5 mg PO BID [facility] Last Admin: 08/25/22 08:04 Dose: 0.5 mg Clonidine HCl (Clonidine Hcl 0.1 Mg Tablet) 0.1 mg PO TID [facility]; Protocol Last Admin: 08/25/22 08:04 Dose: 0.1 mg Diphenhydramine HCl (Diphenhydramine Hcl 25 Mg Capsule) 100 mg PO BEDTIME [facility] Last Admin: 08/24/22 21:18 Dose: 100 mg Duloxetine HCl (Duloxetine Hcl 60 Mg Capsule.Dr) 60 mg PO DAILY [facility] Last Admin: 08/25/22 08:04 Dose: 60 mg Ferrous Sulfate (Ferrous Sulfate 324 Mg Tablet.Dr) 324 mg PO DAILY [facility] Last Admin: 08/25/22 08:04 Dose: 324 mg Fluticasone/Vilanterol (Fluticasone/Vilanterol 200/25 Blst.W.Dev) 1 puff INHALE DAILY [facility] Last Admin: 08/25/22 08:57 Dose: 1 puff Haloperidol (Haloperidol 5 Mg Tablet) 5 mg PO TID PRN PRN Reason: Agitation Last Admin: 08/25/22 08:08 Dose: 5 mg Haloperidol Decanoate (Haloperidol Decanoate 50 Mg/Ml Ampul) 75 mg IM Q28D [facility] Last Admin: 08/21/22 16:30 Dose: 75 mg Hydroxyzine HCl (Hydroxyzine Hcl 50 Mg Tablet) 50 mg PO BID PRN PRN Reason: Anxiety Last Admin: 08/25/22 01:06 Dose: 50 mg Lactic Acid (Ammonium Lactate 12 % Cream 140 Gm Tube) 1 appl TOPICAL BID PRN; Protocol PRN Reason: Dry Skin [place] Carbonate ([place] Carbonate Er 300 Mg Tablet.Er) 600 mg PO DAILY@1600 [facility] Last Admin: 08/24/22 16:10 Dose: 600 mg Magnesium Hydroxide (Milk Of Magnesia 30 Ml Oral.Susp) 30 ml PO DAILY PRN PRN Reason: Constipation Last Admin: 08/24/22 13:06 Dose: 30 ml Nicotine Polacrilex (Nicotine Polacrilex 2 Mg Gum) 2 mg BUCCAL Q2H PRN PRN Reason: Smoking Cessation Omeprazole (Omeprazole 20 Mg Capsule.Dr) 20 mg PO DAILY [facility] Last Admin: 08/25/22 08:04 Dose: 20 mg Ondansetron HCl (Ondansetron Odt 4 Mg Tab.Rapdis) 4 mg TRANSLINGU Q6H PRN PRN Reason: nausea/vomiting Prazosin HCl (Prazosin Hcl 1 Mg Capsule) 1 mg PO BEDTIME [facility]; Protocol Last Admin: 08/24/22 21:16 Dose: 1 mg Prazosin HCl (Prazosin Hcl 5 Mg Capsule) 15 mg PO BEDTIME [facility]; Protocol Last Admin: 08/24/22 21:18 Dose: 15 mg Sodium Biphosphate/Sodium Phosphate (Sodium Phosphate,[place]-Dibasic 133 Ml Enema) 133 ml [place] ONCE PRN PRN Reason: Constipation Last Admin: 08/22/22 19:16 Dose: 133 ml Trazodone HCl (Trazodone Hcl 50 Mg Tablet) 150 mg PO BEDTIME [facility] Last Admin: 08/24/22 21:16 Dose: 150 mg Allergies Allergies Allergy/AdvReac Type Severity Reaction Status Date / Time carbamazepine [From TEGRETOL] AdvReac Unknown NAUSEA & Verified 05/15/22 19:31 VOMITING Fish Containing Products AdvReac Stomach Verified 05/15/22 19:31 Upset Assessment & Plan Assessment & Plan (1) Chronic post-traumatic stress disorder (PTSD): Status: Chronic Code(s): F43.12 - Post-traumatic stress disorder, chronic (2) Borderline personality disorder: Status: Chronic Code(s): F60.3 - Borderline personality disorder Plan Pt is a 37 y.o. female, ? PTSD with extensive trauma history, and BPD, (carries a dx of schizoaffective DO), depressive type,chronic SI, chronic self-harming behaviors and multiple inpatient admissions who re-presents a few days after discharging from the ED for continued ?superficially cutting and increased SI in the face of ongoing psychosocial stressor from peer at senior living. -numerous admissions with similar presentations Hospital course: 08.19.22 last night self-harming. Patient says she is going to continue trying not to do so and if she can remain with good behavioral and impulse control for 3 days, she hopes she can return to senior living. Patient is trying to figure out how she will be able to coexist with antagonistic peer at senior living. Intermittent SI which is chronic.; intermittent self-harming thoughts/urges but patient says she is trying to resist. 08/20/22 pt vacillates between calm and dysregulated; still self-harming (not far from baseline) 08/21/2022 patient a little more calm today and hoping for discharge early next week. Discussed ECT and how it helps her stay safe and without any self-harming behaviors for several months afterwards; senior living staff corroborates -08/21/22 ekg:?? QTc Int : 413 ms 08/22 banged head last night but patient is trying hard to remain safe. Wants ECT. Moving medications to afternoon to help with afternoon dysregulation which is her pattern 08/23 patient remains with desire to self-harm but is trying hard not to and has not Banged her head, though she did superficially cut her arm 08/24 working to remain safe, no self-harm today so far; wants ECT. Case discussed with Dr. Lawson. Patient asked for trial of Adderall or Ritalin to see if it could help with impulse control PLAN: CV 1:1 sitter for now (self-harming behaviors); common for her admissions changed lithium to extended release and made it 1 time daily in the afternoon Scheduled clonidine 0.1 mg t.i.d. for help with morning irritability following nightmares discuss plan w/ staff at senior living can come off isolation (10 days since covid + test; no symptoms) -ECT consult; Dr. lawson agrees to proceed Date of Service: 08/21/22 Procedure(s): ECG 12 lead EKG Vent. Rate : 069 BPM ? ? Atrial Rate : 069 BPM ?? P-R Int : 144 ms? QRS Dur : 068 ms ? ? QT Int : 386 ms ? ? ? P-R-T Axes : 050 069 052 degrees ?? QTc Int : 413 ms ? Normal sinus rhythm Normal ECG When compared with ECG of 29-JUL-2022 00:06, Nonspecific T wave abnormality no longer evident in Anterior leads QT has shortened Patient educated on: diagnosis, medication risk/benefits and ECT Informed Consent: understands Reason for contiued inpatient stay Substantial Risk for: rapid decompensation Time Spent With Patient Time: Total time managing care of this patient today ____ minutes.
[2022-08-24] MEDS: Milk of Magnesia 30 ML ORAL.SUSP PO (13:06)
[2022-08-24 13:44] VITALS: BP 141/73; PULSE 80; RESP 18
[2022-08-24] MEDS: Lithium Carbonate ER 300 MG TABLET.ER 600 MG PO (16:10)
[2022-08-24 18:00] VITALS: BP 117/84; PULSE 59; TEMP 36.4; O2SAT 100
[2022-08-24] MEDS: Prazosin HCL 1 MG CAPSULE PO (21:16)
[2022-08-24] MEDS: diphenhydrAMINE HCL 25 MG CAPSULE 100 MG PO (21:18)
[2022-08-24] MEDS: Prazosin HCL 5 MG CAPSULE 15 MG PO (21:18)
[2022-08-25] MEDS: hydrOXYzine HCL 50 MG TABLET PO ×2 (01:06→17:18)
[2022-08-25] MEDS: HaloperidoL 5 MG TABLET PO ×3 (02:44→17:18)
[2022-08-25 07:51] LABS: Fentanyl, Ur NEGATIVE; Norfentanyl, Ur NEGATIVE
[2022-08-25] MEDS: DULoxetine HCl 60 MG CAPSULE.DR PO (08:04)
[2022-08-25] MEDS: Omeprazole 20 MG CAPSULE.DR PO (08:04)
[2022-08-25] MEDS: Benztropine Mesylate 0.5 MG TABLET PO ×2 (08:04→19:17)
[2022-08-25] MEDS: cloNIDine HCL 0.1 MG TABLET PO ×3 (08:04→19:16)
[2022-08-25] MEDS: Ferrous Sulfate 324 MG TABLET.DR PO (08:04)
[2022-08-25 08:06] VITALS: BP 107/63; PULSE 86; RESP 16; TEMP 36.7; O2SAT 96
[2022-08-25] MEDS: Fluticasone/Vilanterol 200/25 BLST.W.DEV 1 PUFF INHALE (08:57)
--- NOTE | 2022-08-25 09:50 | P.PNPSI_ITS ---
Subjective Subjective Date of Service: 08/25/22 Reason For Visit: Schizoaffective D/O PTSD Borderline Persosnality Interim History: pt reports she's continuing to try hard not to self harm; she did turn in piece of plastic w/out being asked and she has not banged her head. Pt is proud of herself for not self harming last night during high milue acuity. reports more AH; stuggling w/ thoughts of sisters murder Mental Status Exam Mental Status Exam Narrative: Pt is alert and oriented; behavior vacillates, sometimes calm, reasonable and engaged to dysregulated and intermittently self-harming (this is baseline behavior); dressed in casual attire with unkempt hair but adequate hygiene; numerous of scars up and down bilateral forearms from hx of superficial cutting; mood is described as better and affect congruent , brighter; eye contact appropriate; Speech is normal volume, rate, prosody when calm; no psychomotor retardation present; thought process is goal directed; Thought content on dealing with struggles, coping with feelings; how to cope with tense situation at half-way w/ antagonistic peer; intermittent self-harm; otherwise pertinent to relevant topics and without any delusional content, paranoid ideations or grandiosity; intermittent SI (which is chronic) but none currently; no HI. No AH; Patients insight and judgment are impaired but adequate and at baseline Diagnostics Vital Signs (24Hr): Vital Signs - 24 hr 08/24/22 13:44 08/24/22 18:00 08/25/22 08:06 Temperature 97.5 F 98.1 F Pulse Rate 80 59 86 Respiratory Rate 18 16 Blood Pressure 141/73 H 117/84 107/63 Pulse Oximetry 100 96 Oxygen Delivery Method Room Air Room Air BMI result Body Mass Index 41.1 Labs Labs: Laboratory Results - last 48 hr 08/16/22 00:59 Urine Fentanyl Screen SEE NOTE Urine Fentanyl NEGATIVE Ur Norfentanyl Quant NEGATIVE Medications Medications Current Medications Acetaminophen (Acetaminophen 325 Mg Tablet) 650 mg PO Q6H PRN PRN Reason: Headache/Pain Mild Scale (1-3) Last Admin: 08/24/22 16:10 Dose: 650 mg Al Hydroxide/Mg Hydroxide (Magnesium Hydrox/Alum Hydrox 30 Ml Oral.Susp) 30 ml PO Q6H PRN PRN Reason: Heartburn/Nausea Albuterol Sulfate (Albuterol Sulfate 90 Mcg 8 Gm Inhaler) 2 puff INHALE BID PRN PRN Reason: Wheezing Benzonatate (Benzonatate 100 Mg Capsule) 100 mg PO TID PRN PRN Reason: cough Benztropine Mesylate (Benztropine Mesylate 0.5 Mg Tablet) 0.5 mg PO BID [facility] Last Admin: 08/25/22 08:04 Dose: 0.5 mg Clonidine HCl (Clonidine Hcl 0.1 Mg Tablet) 0.1 mg PO TID [facility]; Protocol Last Admin: 08/25/22 08:04 Dose: 0.1 mg Diphenhydramine HCl (Diphenhydramine Hcl 25 Mg Capsule) 100 mg PO BEDTIME [facility] Last Admin: 08/24/22 21:18 Dose: 100 mg Duloxetine HCl (Duloxetine Hcl 60 Mg Capsule.) 60 mg PO DAILY [facility] Last Admin: 08/25/22 08:04 Dose: 60 mg Ferrous Sulfate (Ferrous Sulfate 324 Mg Tablet.) 324 mg PO DAILY [facility] Last Admin: 08/25/22 08:04 Dose: 324 mg Fluticasone/Vilanterol (Fluticasone/Vilanterol 200/25 Blst.W.Dev) 1 puff INHALE DAILY [facility] Last Admin: 08/25/22 08:57 Dose: 1 puff Haloperidol (Haloperidol 5 Mg Tablet) 5 mg PO TID PRN PRN Reason: Agitation Last Admin: 08/25/22 08:08 Dose: 5 mg Haloperidol Decanoate (Haloperidol Decanoate 50 Mg/Ml Ampul) 75 mg IM Q28D [facility] Last Admin: 08/21/22 16:30 Dose: 75 mg Hydroxyzine HCl (Hydroxyzine Hcl 50 Mg Tablet) 50 mg PO BID PRN PRN Reason: Anxiety Last Admin: 08/25/22 01:06 Dose: 50 mg Lactic Acid (Ammonium Lactate 12 % Cream 140 Gm Tube) 1 appl TOPICAL BID PRN; Protocol PRN Reason: Dry Skin Stockwell Carbonate ([place] Carbonate Er 300 Mg Tablet.Er) 600 mg PO DAILY@1600 [facility] Last Admin: 08/24/22 16:10 Dose: 600 mg Magnesium Hydroxide (Milk Of Magnesia 30 Ml Oral.Susp) 30 ml PO DAILY PRN PRN Reason: Constipation Last Admin: 08/24/22 13:06 Dose: 30 ml Nicotine Polacrilex (Nicotine Polacrilex 2 Mg Gum) 2 mg BUCCAL Q2H PRN PRN Reason: Smoking Cessation Omeprazole (Omeprazole 20 Mg Capsule.Dr) 20 mg PO DAILY [facility] Last Admin: 08/25/22 08:04 Dose: 20 mg Ondansetron HCl (Ondansetron Odt 4 Mg Tab.Rapdis) 4 mg TRANSLINGU Q6H PRN PRN Reason: nausea/vomiting Prazosin HCl (Prazosin Hcl 1 Mg Capsule) 1 mg PO BEDTIME [facility]; Protocol Last Admin: 08/24/22 21:16 Dose: 1 mg Prazosin HCl (Prazosin Hcl 5 Mg Capsule) 15 mg PO BEDTIME [facility]; Protocol Last Admin: 08/24/22 21:18 Dose: 15 mg Sodium Biphosphate/Sodium Phosphate (Sodium Phosphate,[place]ingo-Dibasic 133 Ml Enema) 133 ml [place] ONCE PRN PRN Reason: Constipation Last Admin: 08/22/22 19:16 Dose: 133 ml Trazodone HCl (Trazodone Hcl 50 Mg Tablet) 150 mg PO BEDTIME [facility] Last Admin: 08/24/22 21:16 Dose: 150 mg Allergies Allergies Allergy/AdvReac Type Severity Reaction Status Date / Time carbamazepine [From TEGRETOL] AdvReac Unknown NAUSEA & Verified 05/15/22 19:31 VOMITING Fish Containing Products AdvReac Stomach Verified 05/15/22 19:31 Upset Assessment & Plan Assessment & Plan (1) Chronic post-traumatic stress disorder (PTSD): Status: Chronic Code(s): F43.12 - Post-traumatic stress disorder, chronic (2) Borderline personality disorder: Status: Chronic Code(s): F60.3 - Borderline personality disorder Plan Pt is a 37 y.o. female, ? PTSD with extensive trauma history, and BPD, (carries a dx of schizoaffective DO), depressive type,chronic SI, chronic self-harming behaviors and multiple inpatient admissions who re-presents a few days after discharging from the ED for continued ?superficially cutting and increased SI in the face of ongoing psychosocial stressor from peer at half-way. -numerous admissions with similar presentations Hospital course: 08.19.22 last night self-harming. Patient says she is going to continue trying not to do so and if she can remain with good behavioral and impulse control for 3 days, she hopes she can return to half-way. Patient is trying to figure out how she will be able to coexist with antagonistic peer at half-way. Intermittent SI which is chronic.; intermittent self-harming thoughts/urges but patient says she is trying to resist. 08/20/22 pt vacillates between calm and dysregulated; still self-harming (not far from baseline) 08/21/2022 patient a little more calm today and hoping for discharge early next week. Discussed ECT and how it helps her stay safe and without any self-harming behaviors for several months afterwards; half-way staff corroborates -08/21/22 ekg:?? QTc Int : 413 ms 08/22 banged head last night but patient is trying hard to remain safe. Wants ECT. Moving medications to afternoon to help with afternoon dysregulation which is her pattern 08/23 patient remains with desire to self-harm but is trying hard not to and has not Banged her head, though she did superficially cut her arm 08/24 working to remain safe, no self-harm today so far; wants ECT. Case discussed with Dr. Lawson. Patient asked for trial of Adderall or Ritalin to see if it could help with impulse control 08/25 remains w/ urges, but trying not to self harm; no head banging; AH present Hx of failed med trials (not complete) Seroquel, risperdal, abilify, geodon, prozac, remeron, effexor, wellbutrin PLAN: CV 1:1 sitter for now (self-harming behaviors); common for her admissions changed lithium to extended release and made it 1 time daily in the afternoon Scheduled clonidine 0.1 mg t.i.d. for help with morning irritability following nightmares discuss plan w/ staff at half-way can come off isolation (10 days since covid + test; no symptoms) -ECT consult; Dr. lawson agrees to proceed, likely wed Date of Service: 08/21/22 Procedure(s): ECG 12 lead EKG Vent. Rate : 069 BPM ? ? Atrial Rate : 069 BPM ?? P-R Int : 144 ms? QRS Dur : 068 ms ? ? QT Int : 386 ms ? ? ? P-R-T Axes : 050 069 052 degrees ?? QTc Int : 413 ms ? Normal sinus rhythm Normal ECG When compared with ECG of 29-JUL-2022 00:06, Nonspecific T wave abnormality no longer evident in Anterior leads QT has shortened Patient educated on: diagnosis, medication risk/benefits and ECT Informed Consent: understands Reason for contiued inpatient stay Substantial Risk for: rapid decompensation Time Spent With Patient Time: Total time managing care of this patient today ____ minutes.
[2022-08-25 14:59] LABS: Appearance Urine Clear; Color Urine Yellow; Glucose Urine UA Negative (Negative); Leukocyte Esterase Urine Negative (Negative); Nitrite Urine Negative (Negative); PH 7.5 (5.0-9.0); Specific Gravity - Urine <= 1.005 (1.005-1.025); UMIC TRIGGER UACC YES; Urine Blood Trace (Negative); Urine Ketones Negative (Negative); Urine Protein Negative (Neg-Trace)
[2022-08-25 15:04] LABS: Bacteria Urine None Seen (None Seen); Hyaline Casts Urine 0-2 /LPF (0-2); RBC Urine 0-2 /HPF (0-2); WBC Urine 0-5 /HPF (0-5)
[2022-08-25 18:00] VITALS: BP 152/77; PULSE 71; TEMP 36.6; O2SAT 100
[2022-08-25] MEDS: traZODone HCL 50 MG TABLET 150 MG PO (19:15)
[2022-08-25] MEDS: Prazosin HCL 1 MG CAPSULE PO (19:16)
[2022-08-25] MEDS: diphenhydrAMINE HCL 25 MG CAPSULE 100 MG PO (19:16)
[2022-08-25] MEDS: Prazosin HCL 5 MG CAPSULE 15 MG PO (19:16)
[2022-08-26] VITALS (10 sets, daily range): BP systolic 107–119; BP diastolic 50–74; PULSE 60–91; RESP 16–20; TEMP 36.2–36.7; O2SAT 97–100; BMI 41.0
--- NOTE | 2022-08-26 06:45 | P.CONAN_ITS ---
[facility] Active Problems Active Problems: All Active Problems (Updated 08/23/22 @ 15:02 by JUANITO Marquez) Routine medical exam (Acute) Suicidal ideation (Acute) Deliberate self-cutting (Acute) COVID-19 (Acute) COVID-19 (Acute) Sprain of left foot (Acute) Schizoaffective disorder, depressive type (Chronic) Hernia (Chronic) Chronic post-traumatic stress disorder (PTSD) (Chronic) Sprain of anterior cruciate ligament of right knee (Acute) Injury of ligament of right knee (Acute) Increased BMI (Acute) GERD (gastroesophageal reflux disease) (Acute) Borderline personality disorder (Chronic) Past Medical History Medical History Acute post-traumatic stress disorder Adjustment disorder Anxiety Asthma Borderline personality disorder Chronic post-traumatic stress disorder (PTSD) COPD (chronic obstructive pulmonary disease) Depression GERD (gastroesophageal reflux disease) Increased BMI Injury, self-inflicted Intentional self-harm PTSD (post-traumatic stress disorder) Recurrent major depression-severe Schizoaffective disorder Self-harming behavior Suicidal ideation Suicidal ideation Family History Family History (Updated 08/23/22 @ 14:26 by JUANITO Marquez) Mother Brain cancer Other No family history of cardiac disease Family history of problems with anesthesia: No Surgical History History of Problems with Anesthesia: No Social History Social History Household Members: Other Household Members Other:: [facility] Housing: [facility] Housing Other:: [facility] Do you presently have visiting nurse or other home services: No Alcohol intake: unknown Patient Tobacco Use Status: Current everyday Tobacco user Tobacco use type: Cigarette Cigarette Packs Per Day: 0.5 Cigarettes Per Day: 10.0 Years Smoked: 17 Smoked in Last 30 Days: Yes e-Cigarette/Vaping Use: Never Used Patient Interested in Nicotine Replacement: Yes (patch and gum) Patient Given Instructions on How to Stop Smoking: Yes Date Education Initiated: 08/17/22 Second Hand Smoke Exposure: Yes Use of substances other than those prescribed or required for medical reasons: Yes Substance Use Type: Marijuana Substance Use Frequency: Daily Last Used Substance: Just Prior to Admission Currently Displaying Signs/Symptoms of Drug Intoxication Withdrawal: No Any prior treatment program specific to substance use: No Have you been hit, kicked, punched, or otherwise hurt by someone within the past year? If so, by whom?: No Do you feel safe in your current relationship?: No Current Relationship Is there a partner from a previous relationship who is making you feel unsafe now?: No Are you made to feel afraid or neglected: No Advance Directives: No Advance Directives Information Provided: No Do you have thoughts of harming others: None Do you have a plan to hurt others: No Plan Recently lost weight without trying: No How much weight loss: Not applicable Eating poorly because of decreased appetite: No Nutrition screen score: 0 Nutrition Risks: No Nutritional Risk Patient : No : No Poor oral hygiene: No service: No Sexual orientation: Straight/Heterosexual Meds Allergies Allergy/AdvReac Type Severity Reaction Status Date / Time carbamazepine [From TEGRETOL] AdvReac Unknown NAUSEA & Verified 05/15/22 19:31 VOMITING Fish Containing Products AdvReac Stomach Verified 05/15/22 19:31 Upset Active Medications: Current Medications Acetaminophen (Acetaminophen 325 Mg Tablet) 650 mg PO Q6H PRN PRN Reason: Headache/Pain Mild Scale (1-3) Last Admin: 08/24/22 16:10 Dose: 650 mg Al Hydroxide/Mg Hydroxide (Magnesium Hydrox/Alum Hydrox 30 Ml Oral.Susp) 30 ml PO Q6H PRN PRN Reason: Heartburn/Nausea Albuterol Sulfate (Albuterol Sulfate 90 Mcg 8 Gm Inhaler) 2 puff INHALE BID PRN PRN Reason: Wheezing Benzonatate (Benzonatate 100 Mg Capsule) 100 mg PO TID PRN PRN Reason: cough Benztropine Mesylate (Benztropine Mesylate 0.5 Mg Tablet) 0.5 mg PO BID [facility] Last Admin: 08/25/22 19:17 Dose: 0.5 mg Clonidine HCl (Clonidine Hcl 0.1 Mg Tablet) 0.1 mg PO TID [facility]; Protocol Last Admin: 08/25/22 19:16 Dose: 0.1 mg Diphenhydramine HCl (Diphenhydramine Hcl 25 Mg Capsule) 100 mg PO BEDTIME [facility] Last Admin: 08/25/22 19:16 Dose: 100 mg Duloxetine HCl (Duloxetine Hcl 60 Mg Capsule.) 60 mg PO DAILY [facility] Last Admin: 08/25/22 08:04 Dose: 60 mg Ferrous Sulfate (Ferrous Sulfate 324 Mg Tablet.) 324 mg PO DAILY [facility] Last Admin: 08/25/22 08:04 Dose: 324 mg Fluticasone/Vilanterol (Fluticasone/Vilanterol 200/25 Blst.W.Dev) 1 puff INHALE DAILY [facility] Last Admin: 08/25/22 08:57 Dose: 1 puff Haloperidol (Haloperidol 5 Mg Tablet) 5 mg PO TID PRN PRN Reason: Agitation Last Admin: 08/25/22 17:18 Dose: 5 mg Haloperidol Decanoate (Haloperidol Decanoate 50 Mg/Ml Ampul) 75 mg IM Q28D [facility] Last Admin: 08/21/22 16:30 Dose: 75 mg Hydroxyzine HCl (Hydroxyzine Hcl 50 Mg Tablet) 50 mg PO BID PRN PRN Reason: Anxiety Last Admin: 08/25/22 17:18 Dose: 50 mg Lactic Acid (Ammonium Lactate 12 % Cream 140 Gm Tube) 1 appl TOPICAL BID PRN; Protocol PRN Reason: Dry Skin Woody Carbonate (Woody Carbonate Er 300 Mg Tablet.Er) 300 mg PO DAILY@1600 [facility] Magnesium Hydroxide (Milk Of Magnesia 30 Ml Oral.Susp) 30 ml PO DAILY PRN PRN Reason: Constipation Last Admin: 08/24/22 13:06 Dose: 30 ml Nicotine Polacrilex (Nicotine Polacrilex 2 Mg Gum) 2 mg BUCCAL Q2H PRN PRN Reason: Smoking Cessation Omeprazole (Omeprazole 20 Mg Capsule.) 20 mg PO DAILY [facility] Last Admin: 08/25/22 08:04 Dose: 20 mg Ondansetron HCl (Ondansetron Odt 4 Mg Tab.Rapdis) 4 mg TRANSLINGU Q6H PRN PRN Reason: nausea/vomiting Prazosin HCl (Prazosin Hcl 1 Mg Capsule) 1 mg PO BEDTIME [facility]; Protocol Last Admin: 08/25/22 19:16 Dose: 1 mg Prazosin HCl (Prazosin Hcl 5 Mg Capsule) 15 mg PO BEDTIME [facility]; Protocol Last Admin: 08/25/22 19:16 Dose: 15 mg Sodium Biphosphate/Sodium Phosphate (Sodium Phosphate,[place]-Dibasic 133 Ml Enema) 133 ml [place] ONCE PRN PRN Reason: Constipation Last Admin: 08/22/22 19:16 Dose: 133 ml Sodium Biphosphate/Sodium Phosphate (Sodium Phosphate,[place]-Dibasic 133 Ml Enema) 133 ml [place] ONCE PRN PRN Reason: Constipation Trazodone HCl (Trazodone Hcl 50 Mg Tablet) 150 mg PO BEDTIME [facility] Last Admin: 08/25/22 19:15 Dose: 150 mg Home Medications Medication Instructions Recorded Confirmed Last Taken Type acetaminophen 500 mg tablet 1 tab PO Q6H PRN pain 08/14/22 08/15/22 Unknown History albuterol sulfate 90 mcg/actuation 2 puff inhalation BID PRN Wheezing 08/14/22 08/15/22 Unknown History aerosol inhaler (ProAir HFA) ammonium lactate 12 % topical cream 1 appl topical BID PRN Dry Skin 08/14/22 08/15/22 Unknown History bacitracin 500 unit/gram topical 1 appl topical BID PRN Wound 08/14/22 08/15/22 Unknown History ointment Healing benzonatate 100 mg capsule 1 cap PO TID PRN cough 08/14/22 08/15/22 Unknown History benztropine 0.5 mg tablet 1 tab PO BID 08/14/22 08/15/22 Unknown History clonidine HCl 0.1 mg tablet 1 tab PO BID PRN anxiety 08/14/22 08/15/22 Unknown History diphenhydramine HCl 50 mg capsule 2 cap PO BEDTIME 08/14/22 08/15/22 Unknown History (Banophen) duloxetine 60 mg capsule,delayed 1 cap PO QAM 08/14/22 08/15/22 Unknown History release ferrous sulfate 325 mg (65 mg 1 tab PO QAM 08/14/22 08/15/22 Unknown History iron) tablet,delayed release fluticasone propionate 230 2 puff inhalation BID 08/14/22 08/15/22 Unknown History mcg-salmeterol 21 mcg/actuation HFA inhaler (Advair HFA) haloperidol 5 mg tablet 1 tab PO TID PRN Agitation 08/14/22 08/15/22 Unknown History haloperidol decanoate 100 mg/mL 0.75 ml IM QWEEK 08/14/22 08/15/22 Unknown History intramuscular solution hydroxyzine pamoate 50 mg capsule 1 cap PO BID PRN Anxiety 08/14/22 08/15/22 Unknown History lithium carbonate 300 mg tablet 1 tab PO BID 08/14/22 08/15/22 Unknown History lorazepam 1 mg tablet 1 tab PO TID PRN anxiety 08/14/22 08/15/22 Unknown History nicotine (polacrilex) 2 mg gum 2 mg buccal Q2H PRN Smoking 08/14/22 08/15/22 Unknown History Cessation omeprazole 20 mg tablet,delayed 20 mg PO DAILY 08/14/22 08/15/22 Unknown History release ondansetron HCl 4 mg tablet 1 tab PO Q6H PRN nausea/vomiting 08/14/22 08/15/22 Unknown History prazosin 1 mg capsule 1 cap PO BEDTIME 08/14/22 08/15/22 Unknown History prazosin 5 mg capsule 3 cap PO BEDTIME 08/14/22 08/15/22 Unknown History trazodone 50 mg tablet 2 tab PO BEDTIME PRN insomnia 08/14/22 08/15/22 Unknown History zolpidem 10 mg tablet 1 tab PO BEDTIME 08/14/22 08/15/22 Unknown History Exam Exam Date and Time: August 26, 2022 0645 Height,Weight and Vital Signs: Height 4 ft 11 in Weight 92.4 kg Last Vital Signs Temp 98.1 F 08/26/22 06:34 Pulse 91 08/26/22 06:34 Resp 20 08/26/22 06:34 BP 118/68 08/26/22 06:34 Pulse Ox 98 08/26/22 06:34 O2 Del Method 08/25/22 18:00 Pertinent Lab Results Pertinent Lab Results: Laboratory Tests 08/15/22 08/16/22 08/16/22 23:35 00:59 00:59 Estimat Average Glucose Hemoglobin A1c % Magnesium Triglycerides Cholesterol LDL Cholesterol, Calc HDL Cholesterol Vitamin B12 Folate TSH Free T4 Urine Color Urine Appearance Urine pH Ur Specific [place] Urine Protein Urine Glucose (UA) Urine Ketones Urine Blood Urine Nitrite Ur Leukocyte Esterase Urine RBC Urine WBC Ur Squamous Epith Cells Urine Bacteria Hyaline Casts Urine Opiates Screen Not Detected Urine Fentanyl Screen POSITIVE H SEE NOTE Urine Fentanyl NEGATIVE Ur Norfentanyl Quant NEGATIVE Ur Barbiturates Screen Not Detected Ur Phencyclidine Scrn Not Detected Ur Amphetamines Screen Not Detected U Benzodiazepines Scrn Not Detected Urine Cocaine Screen Not Detected U Marijuana (THC) Screen POSITIVE H COVID-19 ([facility]) Positive A COVID-19 Clin Com See Note 08/18/22 08/18/22 08/18/22 08:38 08:38 08:38 Estimat Average Glucose 85 Hemoglobin A1c % 4.6 Magnesium 1.8 Triglycerides 88 Cholesterol 144 LDL Cholesterol, Calc 91 HDL Cholesterol 36 Vitamin B12 211 Folate 4.3 TSH 3.48 Free T4 0.95 Urine Color Urine Appearance Urine pH Ur Specific [place] Urine Protein Urine Glucose (UA) Urine Ketones Urine Blood Urine Nitrite Ur Leukocyte Esterase Urine RBC Urine WBC Ur Squamous Epith Cells Urine Bacteria Hyaline Casts Urine Opiates Screen Urine Fentanyl Screen Urine Fentanyl Ur Norfentanyl Quant Ur Barbiturates Screen Ur Phencyclidine Scrn Ur Amphetamines Screen U Benzodiazepines Scrn Urine Cocaine Screen U Marijuana (THC) Screen COVID-19 ([facility]AL) COVID-19 Clin Com 08/25/22 Unknown Estimat Average Glucose Hemoglobin A1c % Magnesium Triglycerides Cholesterol LDL Cholesterol, Calc HDL Cholesterol Vitamin B12 Folate TSH Free T4 Urine Color Yellow Urine Appearance Clear Urine pH 7.5 Ur Specific [place] <= 1.005 Urine Protein Negative Urine Glucose (UA) Negative Urine Ketones Negative Urine Blood Trace H Urine Nitrite Negative Ur Leukocyte Esterase Negative Urine RBC 0-2 Urine WBC 0-5 Ur Squamous Epith Cells 3-5 Urine Bacteria None Seen Hyaline Casts 0-2 Urine Opiates Screen Urine Fentanyl Screen Urine Fentanyl Ur Norfentanyl Quant Ur Barbiturates Screen Ur Phencyclidine Scrn Ur Amphetamines Screen U Benzodiazepines Scrn Urine Cocaine Screen U Marijuana (THC) Screen COVID-19 ([facility]) COVID-19 Clin Com Airway Mallampati Class: II (Missing multiple teeth, nothing loose) TM Dist: >3cm Neck ROM: Full Heart: rrr Lungs: cta Assessment and Plan Assessment Anesthesia Assessment: Anesthesia Plan Discussed and Chart Reviewed Final Anesthetic Review Family History of Problems with Anesthesia: No History of Problems with Anesthesia: No NPO: Yes ASA Class: III Final Preanesthetic Review: No Changes in Pt Med Stat, Meds/Allgs Chart Reviewed and Consent Obtained/Reviewed Patient Risk: Intermediate Procedure Risk: Intermediate Anesthetic Plan Anesthetic Plan: GA Disposition: Standard PACU
[2022-08-26 06:47] LABS: COVID-19 Test Negative (Negative); IDNOW Serial# 6674DD1D
--- NOTE | 2022-08-26 07:53 | MHC.SHP ---
Pre-Procedural Eval Section A Date of Service: 08/26/22 The patient is an INPATIENT: Yes Changes since office visit: Yes Changes in Medication and Yes Patient answered all questions; No Cold of Flu in the past 2 weeks and No New Medical Problems The History & Physical has been completed within 30 days and I have reviewed it.: Yes Section B Chief Complaint: Schizoaffective D/O PTSD Borderline Persosnality Allergies: Allergies Allergy/AdvReac Type Severity Reaction Status Date / Time carbamazepine [From TEGRETOL] AdvReac Unknown NAUSEA & Verified 05/15/22 19:31 VOMITING Fish Containing Products AdvReac Stomach Verified 05/15/22 19:31 Upset Plan I have reviewed the history and physical and performed a pertinent physical examination on my patient. No changes have occurred unless specified. Time Spent With Patient Time: Total time managing care of this patient today ____ minutes.
--- NOTE | 2022-08-26 10:29 | P.PCN_ITS ---
ECT Procedure Note Diagnosis/Treatment Date of Service: 08/26/22 Diagnosis: Bipolar disorder Previous ECT Date: 09/15/21 Current Treatment Number: 1 Treatment: Series Interval Clinical Notes: The patient remains depressed anxious reactive is hopeful that ECT will help stabilize her get her out of this acute episode that she has been and now for while. Reviewing patient's history she does respond to ECT with greater mood stabilization and markedly less episodes of hospitalization and self-harm. Eventually that sees to be the case but did seem to work for well over a year and she has had courses of ECT similarly at [facility] which seemed to be helpful has had them here. Discussed brief course in-patient and transition to outpatient will discontinue if effective in stabilizing self-harming behavior and mood Time: Total time managing care of this patient today ____ minutes. ECT Settings Device: THYMATRON DGx Electrode Placement: Bitemporal Program/Pulse Width: 0.50 Energy Percent: 100 Seizure Duration By EEG (in seconds): 52 (not registered by the computer but seizure activity until 23s) By Motor Observation (in seconds): 17 Medications Administration General Anesthetic: Etomidate (16) Muscle Relaxant: Succinylcholine (100) Ancillary Medications Analgesics: Torodol - Pre ECT Anti-emetics: Zofran - Pre ECT Miscillaneous Medications: Propofol Airway Management Airway Management: Bag Mask Ventilation Treatment Recommendations No Changes Recommended: No change Notes: Patient was seen previously during this admission chart reviewed case discussed extensively with Dr. lin bailey. Prior records regarding ECT reviewed. Patient has a history of recurrent depression PTSD borderline personality disorder. Has periods where she becomes quite depressed trauma engaged self-harming aunt in e past ECT and then maintenance treatment seem to still decreased the amount of self-harming behavior in a significant way and decrease hospitalizations. The effectiveness of this eventually appeared to wane but the patient and her fci feel that she had had more greater periods of stability when she was getting ECT treatment and there were no significant side effects. Patient does have a port. She did respond to bitemporal treatment and generally did not have significant cognitive side effects. Condition of treatment is patient to not be head banging and she is aware of this medical history reviewed patient did have COVID a few weeks ago I did have the patient do a head CT scan prior to treatment given her recent head banging no evidence of subdural no confusion patient tolerated 1st ECT well Pt Tolerated Procedure w/o Issue: Yes
[2022-08-26] MEDS: cloNIDine HCL 0.1 MG TABLET PO ×3 (11:05→20:37)
[2022-08-26] MEDS: Benztropine Mesylate 0.5 MG TABLET PO ×2 (11:05→20:37)
[2022-08-26] MEDS: Omeprazole 20 MG CAPSULE.DR PO (11:05)
[2022-08-26] MEDS: DULoxetine HCl 60 MG CAPSULE.DR PO (11:05)
[2022-08-26] MEDS: Ferrous Sulfate 324 MG TABLET.DR PO (11:05)
[2022-08-26] MEDS: Acetaminophen 325 MG TABLET 650 MG PO (14:50)
[2022-08-26] MEDS: Lithium Carbonate ER 300 MG TABLET.ER PO (15:53)
--- NOTE | 2022-08-26 17:39 | P.PNPSI_ITS ---
Subjective Subjective Date of Service: 08/26/22 Reason For Visit: Schizoaffective D/O PTSD Borderline Persosnality Interim History: Patient had ECT today. She was resting and woke up smiling, denies any negative side effects, headache or muscle aches from ECT; says she is just tired Mental Status Exam Mental Status Exam Narrative: Pt is alert and oriented; behavior vacillates, sometimes calm, reasonable and engaged to dysregulated and intermittently self-harming (this is baseline behavior); dressed in casual attire with unkempt hair but adequate hygiene; numerous of scars up and down bilateral forearms from hx of superficial cutting; mood is described as better and affect congruent , brighter; eye contact appropriate; Speech is normal volume, rate, prosody when calm; no psychomotor retardation present; thought process is goal directed; Thought content on dealing with struggles, coping with feelings; how to cope with tense situation at senior living w/ antagonistic peer; intermittent self-harm; otherwise pertinent to relevant topics and without any delusional content, paranoid ideations or grandiosity; intermittent SI (which is chronic) but none currently; no HI. No AH; Patients insight and judgment are impaired but adequate and at baseline Diagnostics Vital Signs (24Hr): Vital Signs - 24 hr 08/25/22 18:00 08/26/22 06:34 08/26/22 06:55 Temperature 97.9 F 98.1 F 97.4 F Pulse Rate 71 91 67 Respiratory Rate 20 18 Blood Pressure 152/77 H 118/68 107/70 Pulse Oximetry 100 98 99 Oxygen Delivery Method Room Air Room Air Oxygen Flow Rate 08/26/22 07:58 08/26/22 08:03 08/26/22 08:08 Temperature 97.3 F Pulse Rate 60 71 75 Respiratory Rate 18 20 19 Blood Pressure 114/69 113/67 119/74 Pulse Oximetry 97 98 100 Oxygen Delivery Method Nasal Cannula with ETCO2 Nasal Cannula with ETCO2 Nasal Cannula with ETCO2 Oxygen Flow Rate 2 2 2 08/26/22 08:13 08/26/22 08:28 08/26/22 08:43 Temperature Pulse Rate 74 67 66 Respiratory Rate 16 20 16 Blood Pressure 107/60 115/67 Pulse Oximetry 99 100 97 Oxygen Delivery Method Room Air Nasal Cannula with ETCO2 Room Air Oxygen Flow Rate 2 08/26/22 08:59 08/26/22 09:25 Temperature 97.3 F 97.1 F Pulse Rate 66 74 Respiratory Rate 17 16 Blood Pressure 109/63 117/50 L Pulse Oximetry 98 Oxygen Delivery Method Room Air Oxygen Flow Rate BMI result Body Mass Index 41.0 Labs Labs: Laboratory Results - last 48 hr 08/16/22 08/25/22 08/26/22 00:59 Unknown 06:20 Urine Color Yellow Urine Appearance Clear Urine pH 7.5 Ur Specific [place] <= 1.005 Urine Protein Negative Urine Glucose (UA) Negative Urine Ketones Negative Urine Blood Trace H Urine Nitrite Negative Ur Leukocyte Esterase Negative Urine RBC 0-2 Urine WBC 0-5 Ur Squamous Epith Cells 3-5 Urine Bacteria None Seen Hyaline Casts 0-2 Urine Fentanyl Screen SEE NOTE Urine Fentanyl NEGATIVE Ur Norfentanyl Quant NEGATIVE COVID-19 (RAFAL) Negative COVID-19 Clin Com See Note Imaging Radiology Impressions: ITS Impressions Head CT 08/25/22 15:44 IMPRESSION: No acute intracranial abnormality. Medications Medications Current Medications Acetaminophen (Acetaminophen 325 Mg Tablet) 650 mg PO Q6H PRN PRN Reason: Headache/Pain Mild Scale (1-3) Last Admin: 08/26/22 14:50 Dose: 650 mg Al Hydroxide/Mg Hydroxide (Magnesium Hydrox/Alum Hydrox 30 Ml Oral.Susp) 30 ml PO Q6H PRN PRN Reason: Heartburn/Nausea Albuterol Sulfate (Albuterol Sulfate 90 Mcg 8 Gm Inhaler) 2 puff INHALE BID PRN PRN Reason: Wheezing Benzonatate (Benzonatate 100 Mg Capsule) 100 mg PO TID PRN PRN Reason: cough Benztropine Mesylate (Benztropine Mesylate 0.5 Mg Tablet) 0.5 mg PO BID [facility] Last Admin: 08/26/22 11:05 Dose: 0.5 mg Clonidine HCl (Clonidine Hcl 0.1 Mg Tablet) 0.1 mg PO TID [facility]; Protocol Last Admin: 08/26/22 14:50 Dose: 0.1 mg Diphenhydramine HCl (Diphenhydramine Hcl 25 Mg Capsule) 100 mg PO BEDTIME [facility] Last Admin: 08/25/22 19:16 Dose: 100 mg Duloxetine HCl (Duloxetine Hcl 60 Mg Capsule.) 60 mg PO DAILY [facility] Last Admin: 08/26/22 11:05 Dose: 60 mg Ferrous Sulfate (Ferrous Sulfate 324 Mg Tablet.) 324 mg PO DAILY [facility] Last Admin: 08/26/22 11:05 Dose: 324 mg Fluticasone/Vilanterol (Fluticasone/Vilanterol 200/25 Blst.W.Dev) 1 puff INHALE DAILY [facility] Last Admin: 08/26/22 11:07 Dose: Not Given Haloperidol (Haloperidol 5 Mg Tablet) 5 mg PO TID PRN PRN Reason: Agitation Last Admin: 08/25/22 17:18 Dose: 5 mg Haloperidol Decanoate (Haloperidol Decanoate 50 Mg/Ml Ampul) 75 mg IM Q28D [facility] Last Admin: 08/21/22 16:30 Dose: 75 mg Hydroxyzine HCl (Hydroxyzine Hcl 50 Mg Tablet) 50 mg PO BID PRN PRN Reason: Anxiety Last Admin: 08/25/22 17:18 Dose: 50 mg Lactic Acid (Ammonium Lactate 12 % Cream 140 Gm Tube) 1 appl TOPICAL BID PRN; Protocol PRN Reason: Dry Skin [place] Carbonate ([place] Carbonate Er 300 Mg Tablet.Er) 300 mg PO DAILY@1600 [facility] Last Admin: 08/26/22 15:53 Dose: 300 mg Magnesium Hydroxide (Milk Of Magnesia 30 Ml Oral.Susp) 30 ml PO DAILY PRN PRN Reason: Constipation Last Admin: 08/24/22 13:06 Dose: 30 ml Nicotine Polacrilex (Nicotine Polacrilex 2 Mg Gum) 2 mg BUCCAL Q2H PRN PRN Reason: Smoking Cessation Omeprazole (Omeprazole 20 Mg Capsule.) 20 mg PO DAILY [facility] Last Admin: 08/26/22 11:05 Dose: 20 mg Ondansetron HCl (Ondansetron Odt 4 Mg Tab.Rapdis) 4 mg TRANSLINGU Q6H PRN PRN Reason: nausea/vomiting Prazosin HCl (Prazosin Hcl 1 Mg Capsule) 1 mg PO BEDTIME [facility]; Protocol Last Admin: 08/25/22 19:16 Dose: 1 mg Prazosin HCl (Prazosin Hcl 5 Mg Capsule) 15 mg PO BEDTIME [facility]; Protocol Last Admin: 08/25/22 19:16 Dose: 15 mg Sodium Biphosphate/Sodium Phosphate (Sodium Phosphate,[place]-Dibasic 133 Ml Enema) 133 ml RI ONCE PRN PRN Reason: Constipation Last Admin: 08/22/22 19:16 Dose: 133 ml Sodium Biphosphate/Sodium Phosphate (Sodium Phosphate,[place]-Dibasic 133 Ml Enema) 133 ml RI ONCE PRN PRN Reason: Constipation Trazodone HCl (Trazodone Hcl 50 Mg Tablet) 150 mg PO BEDTIME [facility] Last Admin: 08/25/22 19:15 Dose: 150 mg Allergies Allergies Allergy/AdvReac Type Severity Reaction Status Date / Time carbamazepine [From TEGRETOL] AdvReac Unknown NAUSEA & Verified 05/15/22 19:31 VOMITING Fish Containing Products AdvReac Stomach Verified 05/15/22 19:31 Upset Assessment & Plan Assessment & Plan (1) Chronic post-traumatic stress disorder (PTSD): Status: Chronic Code(s): F43.12 - Post-traumatic stress disorder, chronic (2) Borderline personality disorder: Status: Chronic Code(s): F60.3 - Borderline personality disorder Plan Pt is a 37 y.o. female, ? PTSD with extensive trauma history, and BPD, (carries a dx of schizoaffective DO), depressive type,chronic SI, chronic self-harming behaviors and multiple inpatient admissions who re-presents a few days after discharging from the ED for continued ?superficially cutting and increased SI in the face of ongoing psychosocial stressor from peer at senior living. -numerous admissions with similar presentations Hospital course: 08.19.22 last night self-harming.? Patient says she is going to continue trying not to do so and if she can remain with good behavioral and impulse control for 3 days, she hopes she can return to senior living.? Patient is trying to figure out how she will be able to coexist with antagonistic peer at senior living.? Intermittent SI which is chronic.; intermittent self-harming thoughts/urges but patient says she is trying to resist. 08/20/22 pt vacillates between calm and dysregulated; still self-harming (not far from baseline) 08/21/2022 patient a little more calm today and hoping for discharge early next week.? Discussed ECT and how it helps her stay safe and without any self-harming behaviors for several months afterwards; senior living staff corroborates -08/21/22 ekg:?? QTc Int : 413 ms 08/22 banged head last night but patient is trying hard to remain safe.? Wants ECT.? Moving medications to afternoon to help with afternoon dysregulation which is her pattern 08/23 patient remains with desire to self-harm but is trying hard not to and has not Banged her head, though she did superficially cut her arm 08/24 working to remain safe, no self-harm today so far; wants ECT.? Case discussed with Dr. Silva.? Patient asked for trial of Adderall or Ritalin to see if it could help with impulse control 08/25 remains w/ urges, but trying not to self harm; no head banging;? AH present Hx of failed med trials (not complete) Seroquel, risperdal, abilify, geodon, prozac, remeron, effexor, wellbutrin PLAN: CV 1:1 sitter for now (self-harming behaviors); common for her admissions changed lithium to extended release and made it 1 time daily in the afternoon Scheduled clonidine 0.1 mg t.i.d. for help with morning irritability following nightmares discuss plan w/ staff at senior living ECT Series: ECT #1 08/26 ECT #2 pending 08/28 Patient educated on: ECT Informed Consent: understands Reason for contiued inpatient stay Substantial Risk for: rapid decompensation Time Spent With Patient Time: Total time managing care of this patient today ____ minutes.
[2022-08-26] MEDS: HaloperidoL 5 MG TABLET PO (17:55)
[2022-08-26] MEDS: traZODone HCL 50 MG TABLET 150 MG PO (20:36)
[2022-08-26] MEDS: Prazosin HCL 1 MG CAPSULE PO (20:37)
[2022-08-26] MEDS: Prazosin HCL 5 MG CAPSULE 15 MG PO (20:37)
[2022-08-26] MEDS: diphenhydrAMINE HCL 25 MG CAPSULE 100 MG PO (20:38)
[2022-08-26] MEDS: hydrOXYzine HCL 50 MG TABLET PO (21:32)
[2022-08-27 08:02] VITALS: BP 110/62; PULSE 60; RESP 16; TEMP 36.6; O2SAT 100
[2022-08-27] MEDS: Acetaminophen 325 MG TABLET 650 MG PO (08:46)
[2022-08-27] MEDS: Ferrous Sulfate 324 MG TABLET.DR PO (08:47)
[2022-08-27] MEDS: cloNIDine HCL 0.1 MG TABLET PO ×3 (08:47→19:32)
[2022-08-27] MEDS: Omeprazole 20 MG CAPSULE.DR PO (08:47)
[2022-08-27] MEDS: Benztropine Mesylate 0.5 MG TABLET PO ×2 (08:47→19:31)
[2022-08-27] MEDS: DULoxetine HCl 60 MG CAPSULE.DR PO (08:47)
[2022-08-27] MEDS: Fluticasone/Vilanterol 200/25 BLST.W.DEV 1 PUFF INHALE (08:50)
[2022-08-27] MEDS: hydrOXYzine HCL 50 MG TABLET PO ×2 (09:32→23:18)
--- NOTE | 2022-08-27 10:37 | P.PNPSI_ITS ---
Subjective Subjective Date of Service: 08/27/22 Reason For Visit: Schizoaffective D/O PTSD Borderline Persosnality Interim History: Ethanol Operations Manager and school social worker met with patient. Patient upset today not fond of her one-to-one sitter. Patient reports she feels overly watched and overly corre cted. That said patient has also been pushing the line of appropriate behaviors, absconding with a pencil, hitting the wall with her hand... Patient does not have insight into her behaviors however she says she will remain safe and is working hard to do so. She says she can endure having this particular sitter. Patient also got some upsetting news today from her mother, finding out that a family member had which is challenging patient's impulse control. Ethanol Operations Manager also spoke with the sitter and underwriter solicitation director agrees that sitter is not doing anything inappropriate. Discussed case further with nursing who concur Mental Status Exam Mental Status Exam Narrative: Pt is alert and oriented; behavior vacillates, sometimes calm, reasonable and engaged to dysregulated and intermittently self-harming (this is baseline behavior); dressed in casual attire with unkempt hair but adequate hygiene; numerous of scars up and down bilateral forearms from hx of superficial cutting; mood is described as better and affect congruent , brighter; eye contact appropriate; Speech is normal volume, rate, prosody when calm; no psychomotor retardation present; thought process is goal directed; Thought content on dealing with struggles, coping with feelings; how to cope with tense situation at [facility] w/ antagonistic peer; intermittent self-harm; otherwise pertinent to relevant topics and without any delusional content, paranoid ideations or grandiosity; intermittent SI (which is chronic) but none currently; no HI. No AH; Patients insight and judgment are impaired but adequate and at baseline Diagnostics Vital Signs (24Hr): Vital Signs - 24 hr 08/27/22 08:02 Temperature 97.8 F Pulse Rate 60 Respiratory Rate 16 Blood Pressure 110/62 Pulse Oximetry 100 Oxygen Delivery Method Room Air BMI result Body Mass Index 41.0 Labs Labs: Laboratory Results - last 48 hr 08/25/22 08/26/22 Unknown 06:20 Urine Color Yellow Urine Appearance Clear Urine pH 7.5 Ur Specific [place] <= 1.005 Urine Protein Negative Urine Glucose (UA) Negative Urine Ketones Negative Urine Blood Trace H Urine Nitrite Negative Ur Leukocyte Esterase Negative Urine RBC 0-2 Urine WBC 0-5 Ur Squamous Epith Cells 3-5 Urine Bacteria None Seen Hyaline Casts 0-2 COVID-19 (RFAAL) Negative COVID-19 Clin Com See Note Imaging Radiology Impressions: ITS Impressions Head CT 08/25/22 15:44 IMPRESSION: No acute intracranial abnormality. Medications Medications Current Medications Acetaminophen (Acetaminophen 325 Mg Tablet) 650 mg PO Q6H PRN PRN Reason: Headache/Pain Mild Scale (1-3) Last Admin: 08/27/22 08:46 Dose: 650 mg Al Hydroxide/Mg Hydroxide (Magnesium Hydrox/Alum Hydrox 30 Ml Oral.Susp) 30 ml PO Q6H PRN PRN Reason: Heartburn/Nausea Albuterol Sulfate (Albuterol Sulfate 90 Mcg 8 Gm Inhaler) 2 puff INHALE BID PRN PRN Reason: Wheezing Benzonatate (Benzonatate 100 Mg Capsule) 100 mg PO TID PRN PRN Reason: cough Benztropine Mesylate (Benztropine Mesylate 0.5 Mg Tablet) 0.5 mg PO BID [facility] Last Admin: 08/27/22 08:47 Dose: 0.5 mg Clonidine HCl (Clonidine Hcl 0.1 Mg Tablet) 0.1 mg PO TID [facility]; Protocol Last Admin: 08/27/22 08:47 Dose: 0.1 mg Diphenhydramine HCl (Diphenhydramine Hcl 25 Mg Capsule) 100 mg PO BEDTIME [facility] Last Admin: 08/26/22 20:38 Dose: 100 mg Duloxetine HCl (Duloxetine Hcl 60 Mg Capsule.) 60 mg PO DAILY [facility] Last Admin: 08/27/22 08:47 Dose: 60 mg Ferrous Sulfate (Ferrous Sulfate 324 Mg Tablet.) 324 mg PO DAILY [facility] Last Admin: 08/27/22 08:47 Dose: 324 mg Fluticasone/Vilanterol (Fluticasone/Vilanterol 200/25 Blst.W.Dev) 1 puff INHALE DAILY [facility] Last Admin: 08/27/22 08:50 Dose: 1 puff Haloperidol (Haloperidol 5 Mg Tablet) 5 mg PO TID PRN PRN Reason: Agitation Last Admin: 08/26/22 17:55 Dose: 5 mg Haloperidol Decanoate (Haloperidol Decanoate 50 Mg/Ml Ampul) 75 mg IM Q28D [facility] Last Admin: 08/21/22 16:30 Dose: 75 mg Hydroxyzine HCl (Hydroxyzine Hcl 50 Mg Tablet) 50 mg PO BID PRN PRN Reason: Anxiety Last Admin: 08/27/22 09:32 Dose: 50 mg Lactic Acid (Ammonium Lactate 12 % Cream 140 Gm Tube) 1 appl TOPICAL BID PRN; Protocol PRN Reason: Dry Skin [place] Carbonate ([place] Carbonate Er 300 Mg Tablet.Er) 300 mg PO DAILY@1600 [facility] Last Admin: 08/26/22 15:53 Dose: 300 mg Magnesium Hydroxide (Milk Of Magnesia 30 Ml Oral.Susp) 30 ml PO DAILY PRN PRN Reason: Constipation Last Admin: 08/24/22 13:06 Dose: 30 ml Nicotine Polacrilex (Nicotine Polacrilex 2 Mg Gum) 2 mg BUCCAL Q2H PRN PRN Reason: Smoking Cessation Omeprazole (Omeprazole 20 Mg Capsule.Dr) 20 mg PO DAILY [facility] Last Admin: 08/27/22 08:47 Dose: 20 mg Ondansetron HCl (Ondansetron Odt 4 Mg Tab.Rapdis) 4 mg TRANSLINGU Q6H PRN PRN Reason: nausea/vomiting Prazosin HCl (Prazosin Hcl 1 Mg Capsule) 1 mg PO BEDTIME [facility]; Protocol Last Admin: 08/26/22 20:37 Dose: 1 mg Prazosin HCl (Prazosin Hcl 5 Mg Capsule) 15 mg PO BEDTIME [facility]; Protocol Last Admin: 08/26/22 20:37 Dose: 15 mg Sodium Biphosphate/Sodium Phosphate (Sodium Phosphate,[place]-Dibasic 133 Ml Enema) 133 ml [place] ONCE PRN PRN Reason: Constipation Last Admin: 08/22/22 19:16 Dose: 133 ml Sodium Biphosphate/Sodium Phosphate (Sodium Phosphate,[place]-Dibasic 133 Ml Enema) 133 ml ND ONCE PRN PRN Reason: Constipation Trazodone HCl (Trazodone Hcl 50 Mg Tablet) 150 mg PO BEDTIME [facility] Last Admin: 08/26/22 20:36 Dose: 150 mg Allergies Allergies Allergy/AdvReac Type Severity Reaction Status Date / Time carbamazepine [From TEGRETOL] AdvReac Unknown NAUSEA & Verified 05/15/22 19:31 VOMITING Fish Containing Products AdvReac Stomach Verified 05/15/22 19:31 Upset Assessment & Plan Assessment & Plan (1) Chronic post-traumatic stress disorder (PTSD): Status: Chronic Code(s): F43.12 - Post-traumatic stress disorder, chronic (2) Borderline personality disorder: Status: Chronic Code(s): F60.3 - Borderline personality disorder Plan Pt is a 37 y.o. female, ? PTSD with extensive trauma history, and BPD, (carries a dx of schizoaffective DO), depressive type,chronic SI, chronic self-harming behaviors and multiple inpatient admissions who re-presents a few days after discharging from the ED for continued ?superficially cutting and increased SI in the face of ongoing psychosocial stressor from peer at [facility]. -numerous admissions with similar presentations Hospital course: 08.19.22 last night self-harming.? Patient says she is going to continue trying not to do so and if she can remain with good behavioral and impulse control for 3 days, she hopes she can return to [facility].? Patient is trying to figure out how she will be able to coexist with antagonistic peer at [facility].? Intermittent SI which is chronic.; intermittent self-harming thoughts/urges but patient says she is trying to resist. 08/20/22 pt vacillates between calm and dysregulated; still self-harming (not far from baseline) 08/21/2022 patient a little more calm today and hoping for discharge early next week.? Discussed ECT and how it helps her stay safe and without any self-harming behaviors for several months afterwards; [facility] staff corroborates -08/21/22 ekg:?? QTc Int : 413 ms 08/22 banged head last night but patient is trying hard to remain safe.? Wants ECT.? Moving medications to afternoon to help with afternoon dysregulation which is her pattern 08/23 patient remains with desire to self-harm but is trying hard not to and has not Banged her head, though she did superficially cut her arm 08/24 working to remain safe, no self-harm today so far; wants ECT.? Case discussed with Dr. Silva.? Patient asked for trial of Adderall or Ritalin to see if it could help with impulse control 08/25 remains w/ urges, but trying not to self harm; no head banging;? AH present 08/27 patient reports very tempted to self-harm however she has continued to keep herself safe; dealing with some upsetting family news. Discussed case with team and although patient has been upset she has a particular sitter, team agrees that patient's behavior is manipulative and that it is best for her to practice being in self-control even when not getting her way. Of note, sitter is doing a good job and done nothing inappropriate. Hx of failed med trials (not complete) Seroquel, risperdal, abilify, geodon, prozac, remeron, effexor, wellbutrin PLAN: CV 1:1 sitter for now (self-harming behaviors); common for her admissions changed lithium to extended release and made it 1 time daily in the afternoon Scheduled clonidine 0.1 mg t.i.d. for help with morning irritability following nightmares discuss plan w/ staff at [facility] ECT Series: ECT #1 08/26 ECT #2 08/28 ECT #3 08/31 Pending Patient educated on: diagnosis and ECT Informed Consent: understands and further education needed Reason for contiued inpatient stay Substantial Risk for: rapid decompensation Time Spent With Patient Time: Total time managing care of this patient today ____ minutes.
[2022-08-27] MEDS: Milk of Magnesia 30 ML ORAL.SUSP PO (14:11)
[2022-08-27] MEDS: HaloperidoL 5 MG TABLET PO (15:41)
[2022-08-27 18:00] VITALS: BP 110/70; PULSE 70; RESP 18; O2SAT 99
[2022-08-27] MEDS: Prazosin HCL 5 MG CAPSULE 15 MG PO (19:31)
[2022-08-27] MEDS: diphenhydrAMINE HCL 25 MG CAPSULE 100 MG PO (19:31)
[2022-08-27] MEDS: traZODone HCL 50 MG TABLET 150 MG PO ×2 (19:31→23:18)
[2022-08-27] MEDS: Prazosin HCL 1 MG CAPSULE PO (19:31)
[2022-08-28] VITALS (12 sets, daily range): BP systolic 106–134; BP diastolic 57–81; PULSE 60–80; RESP 14–19; TEMP 36.1–37.3; O2SAT 93–100
--- NOTE | 2022-08-28 06:48 | P.CONAN_ITS ---
[facility] Active Problems Active Problems: All Active Problems (Updated 08/23/22 @ 15:02 by JUANITO Marquez) Routine medical exam (Acute) Suicidal ideation (Acute) Deliberate self-cutting (Acute) COVID-19 (Acute) COVID-19 (Acute) Sprain of left foot (Acute) Schizoaffective disorder, depressive type (Chronic) Hernia (Chronic) Chronic post-traumatic stress disorder (PTSD) (Chronic) Sprain of anterior cruciate ligament of right knee (Acute) Injury of ligament of right knee (Acute) Increased BMI (Acute) GERD (gastroesophageal reflux disease) (Acute) Borderline personality disorder (Chronic) Past Medical History Medical History Acute post-traumatic stress disorder Adjustment disorder Anxiety Asthma Borderline personality disorder Chronic post-traumatic stress disorder (PTSD) COPD (chronic obstructive pulmonary disease) Depression GERD (gastroesophageal reflux disease) Increased BMI Injury, self-inflicted Intentional self-harm PTSD (post-traumatic stress disorder) Recurrent major depression-severe Schizoaffective disorder Self-harming behavior Suicidal ideation Suicidal ideation Family History Family History (Updated 08/23/22 @ 14:26 by JUANITO Marquez) Mother Brain cancer Other No family history of cardiac disease Family history of problems with anesthesia: No Surgical History History of Problems with Anesthesia: No Social History Social History Household Members: Other Household Members Other:: skilled nursing Housing: Assisted Living Facility Housing Other:: skilled nursing Do you presently have visiting nurse or other home services: No Alcohol intake: unknown Patient Tobacco Use Status: Current everyday Tobacco user Tobacco use type: Cigarette Cigarette Packs Per Day: 0.5 Cigarettes Per Day: 10.0 Years Smoked: 17 Smoked in Last 30 Days: No e-Cigarette/Vaping Use: Never Used Patient Interested in Nicotine Replacement: Yes (patch and gum) Patient Given Instructions on How to Stop Smoking: Yes Date Education Initiated: 08/17/22 Second Hand Smoke Exposure: Yes Use of substances other than those prescribed or required for medical reasons: Yes Substance Use Type: Marijuana Substance Use Frequency: Daily Last Used Substance: Just Prior to Admission Currently Displaying Signs/Symptoms of Drug Intoxication Withdrawal: No Any prior treatment program specific to substance use: No Have you been hit, kicked, punched, or otherwise hurt by someone within the past year? If so, by whom?: No Do you feel safe in your current relationship?: No Current Relationship Is there a partner from a previous relationship who is making you feel unsafe now?: No Are you made to feel afraid or neglected: No Advance Directives: No Advance Directives Information Provided: No Do you have thoughts of harming others: None Do you have a plan to hurt others: No Plan Recently lost weight without trying: No How much weight loss: Not applicable Eating poorly because of decreased appetite: No Nutrition screen score: 0 Nutrition Risks: No Nutritional Risk Patient : No : No Poor oral hygiene: No service: No Sexual orientation: Straight/Heterosexual Meds Allergies Allergy/AdvReac Type Severity Reaction Status Date / Time carbamazepine [From TEGRETOL] AdvReac Unknown NAUSEA & Verified 05/15/22 19:31 VOMITING Fish Containing Products AdvReac Stomach Verified 05/15/22 19:31 Upset Active Medications: Current Medications Acetaminophen (Acetaminophen 325 Mg Tablet) 650 mg PO Q6H PRN PRN Reason: Headache/Pain Mild Scale (1-3) Last Admin: 08/27/22 08:46 Dose: 650 mg Al Hydroxide/Mg Hydroxide (Magnesium Hydrox/Alum Hydrox 30 Ml Oral.Susp) 30 ml PO Q6H PRN PRN Reason: Heartburn/Nausea Albuterol Sulfate (Albuterol Sulfate 90 Mcg 8 Gm Inhaler) 2 puff INHALE BID PRN PRN Reason: Wheezing Benzonatate (Benzonatate 100 Mg Capsule) 100 mg PO TID PRN PRN Reason: cough Benztropine Mesylate (Benztropine Mesylate 0.5 Mg Tablet) 0.5 mg PO BID [facility] Last Admin: 08/27/22 19:31 Dose: 0.5 mg Clonidine HCl (Clonidine Hcl 0.1 Mg Tablet) 0.1 mg PO TID [facility]; Protocol Last Admin: 08/27/22 19:32 Dose: 0.1 mg Diphenhydramine HCl (Diphenhydramine Hcl 25 Mg Capsule) 100 mg PO BEDTIME [facility] Last Admin: 08/27/22 19:31 Dose: 100 mg Duloxetine HCl (Duloxetine Hcl 60 Mg Capsule.) 60 mg PO DAILY [facility] Last Admin: 08/27/22 08:47 Dose: 60 mg Ferrous Sulfate (Ferrous Sulfate 324 Mg Tablet.) 324 mg PO DAILY [facility] Last Admin: 08/27/22 08:47 Dose: 324 mg Fluticasone/Vilanterol (Fluticasone/Vilanterol 200/25 Blst.W.Dev) 1 puff INHALE DAILY [facility] Last Admin: 08/27/22 08:50 Dose: 1 puff Haloperidol (Haloperidol 5 Mg Tablet) 5 mg PO TID PRN PRN Reason: Agitation Last Admin: 08/27/22 15:41 Dose: 5 mg Haloperidol Decanoate (Haloperidol Decanoate 50 Mg/Ml Ampul) 75 mg IM Q28D [facility] Last Admin: 08/21/22 16:30 Dose: 75 mg Hydroxyzine HCl (Hydroxyzine Hcl 50 Mg Tablet) 50 mg PO BID PRN PRN Reason: Anxiety Last Admin: 08/27/22 23:18 Dose: 50 mg Lactated Ringer's (Lr) 1,000 mls @ 50 mls/hr IVCONT .Q20H [facility] Sodium Chloride (Ns) 500 mls @ 20 mls/hr IVCONT .Q24H [facility] Lactic Acid (Ammonium Lactate 12 % Cream 140 Gm Tube) 1 appl TOPICAL BID PRN; Protocol PRN Reason: Dry Skin [place] Carbonate ([place] Carbonate Er 300 Mg Tablet.Er) 300 mg PO DAILY@1600 [facility] Last Admin: 08/26/22 15:53 Dose: 300 mg Magnesium Hydroxide (Milk Of Magnesia 30 Ml Oral.Susp) 30 ml PO DAILY PRN PRN Reason: Constipation Last Admin: 08/27/22 14:11 Dose: 30 ml Nicotine Polacrilex (Nicotine Polacrilex 2 Mg Gum) 2 mg BUCCAL Q2H PRN PRN Reason: Smoking Cessation Omeprazole (Omeprazole 20 Mg Capsule.) 20 mg PO DAILY [facility] Last Admin: 08/27/22 08:47 Dose: 20 mg Ondansetron HCl (Ondansetron Odt 4 Mg Tab.Rapdis) 4 mg TRANSLINGU Q6H PRN PRN Reason: nausea/vomiting Prazosin HCl (Prazosin Hcl 1 Mg Capsule) 1 mg PO BEDTIME [facility]; Protocol Last Admin: 08/27/22 19:31 Dose: 1 mg Prazosin HCl (Prazosin Hcl 5 Mg Capsule) 15 mg PO BEDTIME [facility]; Protocol Last Admin: 08/27/22 19:31 Dose: 15 mg Sodium Biphosphate/Sodium Phosphate (Sodium Phosphate,[place]-Dibasic 133 Ml Enema) 133 ml SD ONCE PRN PRN Reason: Constipation Last Admin: 08/22/22 19:16 Dose: 133 ml Sodium Biphosphate/Sodium Phosphate (Sodium Phosphate,[place]-Dibasic 133 Ml Enema) 133 ml SD ONCE PRN PRN Reason: Constipation Trazodone HCl (Trazodone Hcl 50 Mg Tablet) 150 mg PO BEDTIME [facility] Last Admin: 08/27/22 23:18 Dose: 150 mg Home Medications Medication Instructions Recorded Confirmed Last Taken Type acetaminophen 500 mg tablet 1 tab PO Q6H PRN pain 08/14/22 08/15/22 Unknown History albuterol sulfate 90 mcg/actuation 2 puff inhalation BID PRN Wheezing 08/14/22 08/15/22 Unknown History aerosol inhaler (ProAir HFA) ammonium lactate 12 % topical cream 1 appl topical BID PRN Dry Skin 08/14/22 08/15/22 Unknown History bacitracin 500 unit/gram topical 1 appl topical BID PRN Wound 08/14/22 08/15/22 Unknown History ointment Healing benzonatate 100 mg capsule 1 cap PO TID PRN cough 08/14/22 08/15/22 Unknown History benztropine 0.5 mg tablet 1 tab PO BID 08/14/22 08/15/22 Unknown History clonidine HCl 0.1 mg tablet 1 tab PO BID PRN anxiety 08/14/22 08/15/22 Unknown History diphenhydramine HCl 50 mg capsule 2 cap PO BEDTIME 08/14/22 08/15/22 Unknown History (Banophen) duloxetine 60 mg capsule,delayed 1 cap PO QAM 08/14/22 08/15/22 Unknown History release ferrous sulfate 325 mg (65 mg 1 tab PO QAM 08/14/22 08/15/22 Unknown History iron) tablet,delayed release fluticasone propionate 230 2 puff inhalation BID 08/14/22 08/15/22 Unknown History mcg-salmeterol 21 mcg/actuation HFA inhaler (Advair HFA) haloperidol 5 mg tablet 1 tab PO TID PRN Agitation 08/14/22 08/15/22 Unknown History haloperidol decanoate 100 mg/mL 0.75 ml IM QWEEK 08/14/22 08/15/22 Unknown History intramuscular solution hydroxyzine pamoate 50 mg capsule 1 cap PO BID PRN Anxiety 08/14/22 08/15/22 Unknown History lithium carbonate 300 mg tablet 1 tab PO BID 08/14/22 08/15/22 Unknown History lorazepam 1 mg tablet 1 tab PO TID PRN anxiety 08/14/22 08/15/22 Unknown History nicotine (polacrilex) 2 mg gum 2 mg buccal Q2H PRN Smoking 08/14/22 08/15/22 Unknown History Cessation omeprazole 20 mg tablet,delayed 20 mg PO DAILY 08/14/22 08/15/22 Unknown History release ondansetron HCl 4 mg tablet 1 tab PO Q6H PRN nausea/vomiting 08/14/22 08/15/22 Unknown History prazosin 1 mg capsule 1 cap PO BEDTIME 08/14/22 08/15/22 Unknown History prazosin 5 mg capsule 3 cap PO BEDTIME 08/14/22 08/15/22 Unknown History trazodone 50 mg tablet 2 tab PO BEDTIME PRN insomnia 08/14/22 08/15/22 Unknown History zolpidem 10 mg tablet 1 tab PO BEDTIME 08/14/22 08/15/22 Unknown History Exam Exam Date and Time: August 28, 2022 0648 Height,Weight and Vital Signs: Height 4 ft 11 in Weight 92.079 kg Last Vital Signs Temp 97 F 08/28/22 06:36 Pulse 64 08/28/22 06:36 Resp 16 08/28/22 06:36 BP 113/81 08/28/22 06:36 Pulse Ox 100 08/28/22 06:36 O2 Del Method 08/28/22 06:36 O2 Flow Rate 2 08/26/22 08:28 Pertinent Lab Results Pertinent Lab Results: Laboratory Tests 08/15/22 08/16/22 08/16/22 23:35 00:59 00:59 Estimat Average Glucose Hemoglobin A1c % Magnesium Triglycerides Cholesterol LDL Cholesterol, Calc HDL Cholesterol Vitamin B12 Folate TSH Free T4 Urine Color Urine Appearance Urine pH Ur Specific [place] Urine Protein Urine Glucose (UA) Urine Ketones Urine Blood Urine Nitrite Ur Leukocyte Esterase Urine RBC Urine WBC Ur Squamous Epith Cells Urine Bacteria Hyaline Casts Urine Opiates Screen Not Detected Urine Fentanyl Screen POSITIVE H SEE NOTE Urine Fentanyl NEGATIVE Ur Norfentanyl Quant NEGATIVE Ur Barbiturates Screen Not Detected Ur Phencyclidine Scrn Not Detected Ur Amphetamines Screen Not Detected U Benzodiazepines Scrn Not Detected Urine Cocaine Screen Not Detected U Marijuana (THC) Screen POSITIVE H COVID-19 (RAFAL) Positive A COVID-19 [employer] Com See Note 08/18/22 08/18/22 08/18/22 08:38 08:38 08:38 Estimat Average Glucose 85 Hemoglobin A1c % 4.6 Magnesium 1.8 Triglycerides 88 Cholesterol 144 LDL Cholesterol, Calc 91 HDL Cholesterol 36 Vitamin B12 211 Folate 4.3 TSH 3.48 Free T4 0.95 Urine Color Urine Appearance Urine pH Ur Specific [place] Urine Protein Urine Glucose (UA) Urine Ketones Urine Blood Urine Nitrite Ur Leukocyte Esterase Urine RBC Urine WBC Ur Squamous Epith Cells Urine Bacteria Hyaline Casts Urine Opiates Screen Urine Fentanyl Screen Urine Fentanyl Ur Norfentanyl Quant Ur Barbiturates Screen Ur Phencyclidine Scrn Ur Amphetamines Screen U Benzodiazepines Scrn Urine Cocaine Screen U Marijuana (THC) Screen COVID-19 (RAFAL) COVID-[facility] Com 08/25/22 08/26/22 Unknown 06:20 Estimat Average Glucose Hemoglobin A1c % Magnesium Triglycerides Cholesterol LDL Cholesterol, Calc HDL Cholesterol Vitamin B12 Folate TSH Free T4 Urine Color Yellow Urine Appearance Clear Urine pH 7.5 Ur Specific [place] <= 1.005 Urine Protein Negative Urine Glucose (UA) Negative Urine Ketones Negative Urine Blood Trace H Urine Nitrite Negative Ur Leukocyte Esterase Negative Urine RBC 0-2 Urine WBC 0-5 Ur Squamous Epith Cells 3-5 Urine Bacteria None Seen Hyaline Casts 0-2 Urine Opiates Screen Urine Fentanyl Screen Urine Fentanyl Ur Norfentanyl Quant Ur Barbiturates Screen Ur Phencyclidine Scrn Ur Amphetamines Screen U Benzodiazepines Scrn Urine Cocaine Screen U Marijuana (THC) Screen COVID-19 (RAFAL) Negative COVID-[facility] Com See Note Airway Mallampati Class: II TM Dist: >3cm Neck ROM: Full Heart: rrr Lungs: cta Assessment and Plan Assessment Anesthesia Assessment: Anesthesia Plan Discussed and Chart Reviewed Final Anesthetic Review Family History of Problems with Anesthesia: No History of Problems with Anesthesia: No NPO: Yes ASA Class: III Final Preanesthetic Review: No Changes in Pt Med Stat, Meds/Allgs Chart Reviewed and Consent Obtained/Reviewed Patient Risk: Intermediate Procedure Risk: Intermediate Anesthetic Plan Anesthetic Plan: GA Disposition: Standard PACU
--- NOTE | 2022-08-28 07:34 | MHC.SHP ---
Pre-Procedural Eval Section A Date of Service: 08/28/22 The patient is an INPATIENT: No Changes since office visit: Yes Changes in Medication and Yes Patient answered all questions; No Cold of Flu in the past 2 weeks and No New Medical Problems Section B Chief Complaint: Schizoaffective D/O PTSD Borderline Persosnality Allergies: Allergies Allergy/AdvReac Type Severity Reaction Status Date / Time carbamazepine [From TEGRETOL] AdvReac Unknown NAUSEA & Verified 05/15/22 19:31 VOMITING Fish Containing Products AdvReac Stomach Verified 05/15/22 19:31 Upset Plan I have reviewed the history and physical and performed a pertinent physical examination on my patient. No changes have occurred unless specified. Time Spent With Patient Time: Total time managing care of this patient today ____ minutes.
--- NOTE | 2022-08-28 08:33 | P.PNPSI_ITS ---
Subjective Subjective Date of Service: 08/28/22 Reason For Visit: Schizoaffective D/O PTSD Borderline Persosnality Interim History: Patient very dysregulated today, upset about being accused of self-harm yesterday and talking rudely to her one-to-one. Patient insists that she did no self-harm and that banging her hand on the wall was something she typically does as a coping tool and that she did not punched a wall to self-harm. She initially said she was not rude to her one-to-one however she did acknowledge that she did say inappropriate things and she should not have done that. 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 She had some brief glimpses of understanding that all of people need to learn to cope with situations we do not like and that her one-to-one was not an appropriate, however she remained upset and wanted Geodon IM. Mental Status Exam Mental Status Exam Narrative: Pt is alert and oriented; behavior vacillates, sometimes calm, reasonable and engaged to dysregulated and intermittently self-harming (this is baseline behavior); dressed in casual attire with unkempt hair but adequate hygiene; numerous of scars up and down bilateral forearms from hx of superficial cutting; mood is described as better and affect congruent , brighter; eye contact appropriate; Speech is normal volume, rate, prosody when calm; no psychomotor retardation present; thought process is goal directed; Thought content on dealing with struggles, coping with feelings; how to cope with tense situation [facility] w/ antagonistic peer; intermittent self-harm; otherwise pertinent to relevant topics and without any delusional content, paranoid ideations or grandiosity; intermittent SI (which is chronic) but none currently; no HI. No AH; Patients insight and judgment are impaired but adequate and at baseline Diagnostics Vital Signs (24Hr): Vital Signs - 24 hr 08/27/22 18:00 08/28/22 06:20 08/28/22 06:36 Temperature 97.0 F 97 F Pulse Rate 70 60 64 Respiratory Rate 18 18 16 Blood Pressure 110/70 126/57 L 113/81 Pulse Oximetry 99 100 100 Oxygen Delivery Method Room Air Room Air Oxygen Flow Rate 08/28/22 07:54 08/28/22 07:59 08/28/22 08:04 Temperature 99.1 F Pulse Rate 80 80 77 Respiratory Rate 19 19 19 Blood Pressure 129/78 119/75 117/70 Pulse Oximetry 94 93 94 Oxygen Delivery Method Nasal Cannula Nasal Cannula Nasal Cannula Oxygen Flow Rate 4 4 4 08/28/22 08:09 Temperature Pulse Rate 76 Respiratory Rate 18 Blood Pressure 107/65 Pulse Oximetry 94 Oxygen Delivery Method Nasal Cannula Oxygen Flow Rate 1 BMI result Body Mass Index 41.0 Imaging Radiology Impressions: ITS Impressions Head CT 08/25/22 15:44 IMPRESSION: No acute intracranial abnormality. Medications Medications Current Medications Acetaminophen (Acetaminophen 325 Mg Tablet) 650 mg PO Q6H PRN PRN Reason: Headache/Pain Mild Scale (1-3) Last Admin: 08/27/22 08:46 Dose: 650 mg Al Hydroxide/Mg Hydroxide (Magnesium Hydrox/Alum Hydrox 30 Ml Oral.Susp) 30 ml PO Q6H PRN PRN Reason: Heartburn/Nausea Albuterol Sulfate (Albuterol Sulfate 90 Mcg 8 Gm Inhaler) 2 puff INHALE BID PRN PRN Reason: Wheezing Benzonatate (Benzonatate 100 Mg Capsule) 100 mg PO TID PRN PRN Reason: cough Benztropine Mesylate (Benztropine Mesylate 0.5 Mg Tablet) 0.5 mg PO BID [facility] Last Admin: 08/27/22 19:31 Dose: 0.5 mg Clonidine HCl (Clonidine Hcl 0.1 Mg Tablet) 0.1 mg PO TID [facility]; Protocol Last Admin: 08/27/22 19:32 Dose: 0.1 mg Diphenhydramine HCl (Diphenhydramine Hcl 25 Mg Capsule) 100 mg PO BEDTIME [facility] Last Admin: 08/27/22 19:31 Dose: 100 mg Duloxetine HCl (Duloxetine Hcl 60 Mg Capsule.) 60 mg PO DAILY [facility] Last Admin: 08/27/22 08:47 Dose: 60 mg Ferrous Sulfate (Ferrous Sulfate 324 Mg Tablet.) 324 mg PO DAILY [facility] Last Admin: 08/27/22 08:47 Dose: 324 mg Fluticasone/Vilanterol (Fluticasone/Vilanterol 200/25 Blst.W.Dev) 1 puff INHALE DAILY [facility] Last Admin: 08/27/22 08:50 Dose: 1 puff Haloperidol (Haloperidol 5 Mg Tablet) 5 mg PO TID PRN PRN Reason: Agitation Last Admin: 08/27/22 15:41 Dose: 5 mg Haloperidol Decanoate (Haloperidol Decanoate 50 Mg/Ml Ampul) 75 mg IM Q28D [facility] Last Admin: 08/21/22 16:30 Dose: 75 mg Hydroxyzine HCl (Hydroxyzine Hcl 50 Mg Tablet) 50 mg PO BID PRN PRN Reason: Anxiety Last Admin: 08/27/22 23:18 Dose: 50 mg Lactated Ringer's (Lr) 1,000 mls @ 50 mls/hr IVCONT .Q20H [facility] Sodium Chloride (Ns) 500 mls @ 20 mls/hr IVCONT .Q24H [facility] Lactic Acid (Ammonium Lactate 12 % Cream 140 Gm Tube) 1 appl TOPICAL BID PRN; Protocol PRN Reason: Dry Skin [place] Carbonate ([place] Carbonate Er 300 Mg Tablet.Er) 300 mg PO DAILY@1600 [facility] Last Admin: 08/26/22 15:53 Dose: 300 mg Magnesium Hydroxide (Milk Of Magnesia 30 Ml Oral.Susp) 30 ml PO DAILY PRN PRN Reason: Constipation Last Admin: 08/27/22 14:11 Dose: 30 ml Nicotine Polacrilex (Nicotine Polacrilex 2 Mg Gum) 2 mg BUCCAL Q2H PRN PRN Reason: Smoking Cessation Omeprazole (Omeprazole 20 Mg Capsule.Dr) 20 mg PO DAILY [facility] Last Admin: 08/27/22 08:47 Dose: 20 mg Ondansetron HCl (Ondansetron Odt 4 Mg Tab.Rapdis) 4 mg TRANSLINGU Q6H PRN PRN Reason: nausea/vomiting Prazosin HCl (Prazosin Hcl 1 Mg Capsule) 1 mg PO BEDTIME [facility]; Protocol Last Admin: 08/27/22 19:31 Dose: 1 mg Prazosin HCl (Prazosin Hcl 5 Mg Capsule) 15 mg PO BEDTIME [facility]; Protocol Last Admin: 08/27/22 19:31 Dose: 15 mg Sodium Biphosphate/Sodium Phosphate (Sodium Phosphate,[place]-Dibasic 133 Ml Enema) 133 ml DE ONCE PRN PRN Reason: Constipation Last Admin: 08/22/22 19:16 Dose: 133 ml Sodium Biphosphate/Sodium Phosphate (Sodium Phosphate,[place]-Dibasic 133 Ml Enema) 133 ml DE ONCE PRN PRN Reason: Constipation Trazodone HCl (Trazodone Hcl 50 Mg Tablet) 150 mg PO BEDTIME [facility] Last Admin: 08/27/22 23:18 Dose: 150 mg Allergies Allergies Allergy/AdvReac Type Severity Reaction Status Date / Time carbamazepine [From TEGRETOL] AdvReac Unknown NAUSEA & Verified 05/15/22 19:31 VOMITING Fish Containing Products AdvReac Stomach Verified 05/15/22 19:31 Upset Assessment & Plan Assessment & Plan (1) Chronic post-traumatic stress disorder (PTSD): Status: Chronic Code(s): F43.12 - Post-traumatic stress disorder, chronic (2) Borderline personality disorder: Status: Chronic Code(s): F60.3 - Borderline personality disorder Plan Pt is a 37 y.o. female, ? PTSD with extensive trauma history, and BPD, (carries a dx of schizoaffective DO), depressive type,chronic SI, chronic self-harming behaviors and multiple inpatient admissions who re-presents a few days after discharging from the ED for continued ?superficially cutting and increased SI in the face of ongoing psychosocial stressor from peer at [facility]. -numerous admissions with similar presentations Hospital course: 08.19.22 last night self-harming.? Patient says she is going to continue trying not to do so and if she can remain with good behavioral and impulse control for 3 days, she hopes she can return to penit[facility]iary.? Patient is trying to figure out how she will be able to coexist with antagonistic peer at penitentiary.? Intermittent SI which is chronic.; intermittent self-harming thoughts/urges but patient says she is trying to resist. 08/20/22 pt vacillates between calm and dysregulated; still self-harming (not far from baseline) 08/21/2022 patient a little more calm today and hoping for discharge early next week.? Discussed ECT and how it helps her stay safe and without any self-harming behaviors for several months afterwards; [facility]iary staff corroborates -08/21/22 ekg:?? QTc Int : 413 ms 08/22 banged head last night but patient is trying hard to remain safe.? Wants ECT.? Moving medications to afternoon to help with afternoon dysregulation which is her pattern 08/23 patient remains with desire to self-harm but is trying hard not to and has not Banged her head, though she did superficially cut her arm 08/24 working to remain safe, no self-harm today so far; wants ECT.? Case discussed with Dr. Silva.? Patient asked for trial of Adderall or Ritalin to see if it could help with impulse control 08/25 remains w/ urges, but trying not to self harm; no head banging;? AH present 08/27 patient reports very tempted to self-harm however she has continued to keep herself safe; dealing with some upsetting family news. Discussed case with team and although patient has been upset she has a particular sitter, team agrees that patient's behavior is manipulative and that it is best for her to practice being in self-control even when not getting her way. Of note, sitter is doing a good job and done nothing inappropriate. 08/28 patient dysregulated today, poor insight into situation Discussed case with nursing; also discussed case with bilingual social worker and recommendations from pen[facility]. Hx of failed med trials (not complete) Seroquel, risperdal, abilify, geodon, prozac, remeron, effexor, wellbutrin PLAN: CV 1:1 sitter for now (self-harming behaviors); common for her admissions changed lithium to extended release and made it 1 time daily in the afternoon Scheduled clonidine 0.1 mg t.i.d. for help with morning irritability following nightmares discuss plan w/ staff at [facility] ECT Series: ECT #1 08/26 ECT #2 08/28 ECT #3 08/31 Pending Patient educated on: diagnosis and therapeutic strategies Informed Consent: understands Reason for contiued inpatient stay Substantial Risk for: med/psych decompensation Time Spent With Patient Time: Total time managing care of this patient today ____ minutes.
[2022-08-28] MEDS: Heparin Sodium,Porcine Flush 500 UNIT/5 ML SYRINGE IVFLUSH (08:54)
--- NOTE | 2022-08-28 09:14 | HO.ECTPROC ---
ECT Procedure Note Diagnosis/Treatment Date of Service: 08/28/22 Diagnosis: Major Depressive Disorder Previous ECT Date: 08/26/22 Current Treatment Number: 2 Treatment: Series Interval Clinical Notes: pt denies current self harm tolerated ect number 1 without difficulty Time: Total time managing care of this patient today ____ minutes. ECT Settings Device: THYMATRON DGx Electrode Placement: Bitemporal Program/Pulse Width: 0.50 Energy Percent: 100 Seizure Duration By EEG (in seconds): 33 Medications Administration General Anesthetic: Etomidate (16) Muscle Relaxant: Succinylcholine (100) Ancillary Medications Analgesics: Torodol - Pre ECT Anti-emetics: Zofran - Pre ECT Miscillaneous Medications: Propofol (30) Airway Management Airway Management: Bag Mask Ventilation Treatment Recommendations No Changes Recommended: No change Pt Tolerated Procedure w/o Issue: Yes
[2022-08-28] MEDS: DULoxetine HCl 60 MG CAPSULE.DR PO (09:45)
[2022-08-28] MEDS: cloNIDine HCL 0.1 MG TABLET PO ×4 (09:45→22:49)
[2022-08-28] MEDS: Ferrous Sulfate 324 MG TABLET.DR PO (09:45)
[2022-08-28] MEDS: Omeprazole 20 MG CAPSULE.DR PO (09:45)
[2022-08-28] MEDS: Benztropine Mesylate 0.5 MG TABLET PO ×2 (09:45→22:47)
[2022-08-28] MEDS: hydrOXYzine HCL 50 MG TABLET PO ×2 (12:33→21:45)
[2022-08-28] MEDS: HaloperidoL 5 MG TABLET PO ×2 (12:33→21:45)
--- NOTE | 2022-08-28 13:03 | PC.NURSE ---
Addendum entered by Debbie Nolan RN 08/28/22 13:10: provider notified Original Note: pt was informed that she would not be able to receive a coffee from her visitor due to SIB during previous day per team behavioral plan. Pt became irrate, yelling and screaming and stated that staff were lying about her behavior. Pt then began punching and banging her head against the wall drawing blood from her forehead wound. pt was attempted to be redirected w/ minimal affect. Pt requested PRN medications and while waiting to have them dispensed, began punching herself in the head. pt was redirected, medications administered, and wound care performed. pt is now in room w/ 1:1 supervision.
[2022-08-28] MEDS: Ziprasidone Mesylate 20 MG VIAL IM (14:07)
[2022-08-28] MEDS: Docusate Sodium 100 MG CAPSULE PO ×2 (14:07→22:47)
--- NOTE | 2022-08-28 14:33 | PC.NURSE ---
Pt meeting with t/w, expressing urges for self harm. Expressing extreme anger and frustration with lack of medication response. Pt asking for injections to help her faster . notified, IMs ordered.
[2022-08-28] MEDS: Lithium Carbonate ER 300 MG TABLET.ER PO (17:34)
[2022-08-28] MEDS: diphenhydrAMINE HCL 25 MG CAPSULE 100 MG PO (22:46)
[2022-08-28] MEDS: Sodium Phosphate,Mono-Dibasic 133 ML ENEMA PR (22:46)
[2022-08-28] MEDS: Prazosin HCL 1 MG CAPSULE PO (22:47)
[2022-08-28] MEDS: Prazosin HCL 5 MG CAPSULE 15 MG PO (22:47)
[2022-08-28] MEDS: traZODone HCL 50 MG TABLET 150 MG PO (22:50)
--- NOTE | 2022-08-29 10:38 | HO.PSYCHPN ---
Subjective Subjective Date of Service: 08/29/22 Reason For Visit: Schizoaffective D/O PTSD Borderline Persosnality Interim History: Patient was emotionally dysregulated today, still upset about yesterday's interaction with one-to-one; patient was intermittently tearful; rfp writer and patient discussed this and she said she will continue trying to stay safe. However later in the day she she got further dysregulated; Met again with patient who was tearful and upset. She later punched the wall, though not hard. She asked for [address] to calm down which was affective and patient slept afterwards. Mental Status Exam Mental Status Exam Narrative: Pt is alert and oriented; behavior vacillates, sometimes calm, reasonable and engaged to dysregulated and intermittently self-harming (this is baseline behavior); dressed in casual attire with unkempt hair but adequate hygiene; numerous of scars up and down bilateral forearms from hx of superficial cutting; mood is described as better and affect congruent , brighter; eye contact appropriate; Speech is normal volume, rate, prosody when calm; no psychomotor retardation present; thought process is goal directed; Thought content on dealing with struggles, coping with feelings; how to cope with tense situation at intermediate w/ antagonistic peer; intermittent self-harm; otherwise pertinent to relevant topics and without any delusional content, paranoid ideations or grandiosity; intermittent SI (which is chronic) but none currently; no HI. No AH; Patients insight and judgment are impaired but adequate and at baseline Diagnostics Vital Signs (24Hr): Vital Signs - 24 hr 08/28/22 13:03 08/28/22 14:49 08/28/22 22:45 Temperature 97 F Pulse Rate 78 Respiratory Rate 14 Blood Pressure 126/69 124/66 134/58 L BMI result Body Mass Index 41.0 Imaging Radiology Impressions: ITS Impressions Head CT 08/25/22 15:44 IMPRESSION: No acute intracranial abnormality. Medications Medications Current Medications Acetaminophen (Acetaminophen 325 Mg Tablet) 650 mg PO Q6H PRN PRN Reason: Headache/Pain Mild Scale (1-3) Last Admin: 08/27/22 08:46 Dose: 650 mg Al Hydroxide/Mg Hydroxide (Magnesium Hydrox/Alum Hydrox 30 Ml Oral.Susp) 30 ml PO Q6H PRN PRN Reason: Heartburn/Nausea Albuterol Sulfate (Albuterol Sulfate 90 Mcg 8 Gm Inhaler) 2 puff INHALE BID PRN PRN Reason: Wheezing Benzonatate (Benzonatate 100 Mg Capsule) 100 mg PO TID PRN PRN Reason: cough Benztropine Mesylate (Benztropine Mesylate 0.5 Mg Tablet) 0.5 mg PO BID [facility] Last Admin: 08/28/22 22:47 Dose: 0.5 mg Clonidine HCl (Clonidine Hcl 0.1 Mg Tablet) 0.1 mg PO TID [facility]; Protocol Last Admin: 08/28/22 22:49 Dose: 0.1 mg Diphenhydramine HCl (Diphenhydramine Hcl 25 Mg Capsule) 100 mg PO BEDTIME [facility] Last Admin: 08/28/22 22:46 Dose: 100 mg Docusate Sodium (Docusate Sodium 100 Mg Capsule) 100 mg PO BID [facility] Last Admin: 08/28/22 22:47 Dose: 100 mg Duloxetine HCl (Duloxetine Hcl 60 Mg Capsule.) 60 mg PO DAILY [facility] Last Admin: 08/28/22 09:45 Dose: 60 mg Ferrous Sulfate (Ferrous Sulfate 324 Mg Tablet.) 324 mg PO DAILY [facility] Last Admin: 08/28/22 09:45 Dose: 324 mg Fluticasone/Vilanterol (Fluticasone/Vilanterol 200/25 Blst.W.Dev) 1 puff INHALE DAILY [facility] Last Admin: 08/28/22 09:47 Dose: Not Given Haloperidol (Haloperidol 5 Mg Tablet) 5 mg PO TID PRN PRN Reason: Agitation Last Admin: 08/28/22 21:45 Dose: 5 mg Haloperidol Decanoate (Haloperidol Decanoate 50 Mg/Ml Ampul) 75 mg IM Q28D [facility] Last Admin: 08/21/22 16:30 Dose: 75 mg Hydroxyzine HCl (Hydroxyzine Hcl 50 Mg Tablet) 50 mg PO BID PRN PRN Reason: Anxiety Last Admin: 08/28/22 21:45 Dose: 50 mg Lactic Acid (Ammonium Lactate 12 % Cream 140 Gm Tube) 1 appl TOPICAL BID PRN; Protocol PRN Reason: Dry Skin [place] Carbonate ([place] Carbonate Er 300 Mg Tablet.Er) 300 mg PO DAILY@1600 [facility] Last Admin: 08/28/22 17:34 Dose: 300 mg Magnesium Hydroxide (Milk Of Magnesia 30 Ml Oral.Susp) 30 ml PO DAILY PRN PRN Reason: Constipation Last Admin: 08/27/22 14:11 Dose: 30 ml Nicotine Polacrilex (Nicotine Polacrilex 2 Mg Gum) 2 mg BUCCAL Q2H PRN PRN Reason: Smoking Cessation Omeprazole (Omeprazole 20 Mg Capsule.Dr) 20 mg PO DAILY [facility] Last Admin: 08/28/22 09:45 Dose: 20 mg Ondansetron HCl (Ondansetron Odt 4 Mg Tab.Rapdis) 4 mg TRANSLINGU Q6H PRN PRN Reason: nausea/vomiting Prazosin HCl (Prazosin Hcl 1 Mg Capsule) 1 mg PO BEDTIME [facility]; Protocol Last Admin: 08/28/22 22:47 Dose: 1 mg Prazosin HCl (Prazosin Hcl 5 Mg Capsule) 15 mg PO BEDTIME [facility]; Protocol Last Admin: 08/28/22 22:47 Dose: 15 mg Sodium Biphosphate/Sodium Phosphate (Sodium Phosphate,[place]-Dibasic 133 Ml Enema) 133 ml NC ONCE PRN PRN Reason: Constipation Last Admin: 08/28/22 22:46 Dose: 133 ml Trazodone HCl (Trazodone Hcl 50 Mg Tablet) 150 mg PO BEDTIME [facility] Last Admin: 08/28/22 22:50 Dose: 150 mg Allergies Allergies Allergy/AdvReac Type Severity Reaction Status Date / Time carbamazepine [From TEGRETOL] AdvReac Unknown NAUSEA & Verified 05/15/22 19:31 VOMITING Fish Containing Products AdvReac Stomach Verified 05/15/22 19:31 Upset Assessment & Plan Assessment & Plan (1) Chronic post-traumatic stress disorder (PTSD): Status: Chronic Code(s): F43.12 - Post-traumatic stress disorder, chronic (2) Borderline personality disorder: Status: Chronic Code(s): F60.3 - Borderline personality disorder Plan Pt is a 37 y.o. female, ? PTSD with extensive trauma history, and BPD, (carries a dx of schizoaffective DO), depressive type,chronic SI, chronic self-harming behaviors and multiple inpatient admissions who re-presents a few days after discharging from the ED for continued ?superficially cutting and increased SI in the face of ongoing psychosocial stressor from peer at intermediate. -numerous admissions with similar presentations Hospital course: 08.19.22 last night self-harming.? Patient says she is going to continue trying not to do so and if she can remain with good behavioral and impulse control for 3 days, she hopes she can return to intermediate.? Patient is trying to figure out how she will be able to coexist with antagonistic peer at intermediate.? Intermittent SI which is chronic.; intermittent self-harming thoughts/urges but patient says she is trying to resist. 08/20/22 pt vacillates between calm and dysregulated; still self-harming (not far from baseline) 08/21/2022 patient a little more calm today and hoping for discharge early next week.? Discussed ECT and how it helps her stay safe and without any self-harming behaviors for several months afterwards; intermediate staff corroborates -08/21/22 ekg:?? QTc Int : 413 ms 08/22 banged head last night but patient is trying hard to remain safe.? Wants ECT.? Moving medications to afternoon to help with afternoon dysregulation which is her pattern 08/23 patient remains with desire to self-harm but is trying hard not to and has not Banged her head, though she did superficially cut her arm 08/24 working to remain safe, no self-harm today so far; wants ECT.? Case discussed with Dr. Silva.? Patient asked for trial of Adderall or Ritalin to see if it could help with impulse control 08/25 remains w/ urges, but trying not to self harm; no head banging;? AH present 08/27 patient reports very tempted to self-harm however she has continued to keep herself safe; dealing with some upsetting family news. Discussed case with team and although patient has been upset she has a particular sitter, team agrees that patient's behavior is manipulative and that it is best for her to practice being in self-control even when not getting her way. Of note, sitter is doing a good job and done nothing inappropriate. 08/28 patient dysregulated today, poor insight into situation Discussed case with nursing; also discussed case with child protective services social worker and recommendations from intermediate. 08/29 continue treatment plan; Discussed case with nursing; met with patient; reviewed vitals and WNL -patient has overall kept herself in increased safe behavior over the past week. Her mood and behavioral ability is part of her baseline; further hospitalization or medication management will not change this. Perhaps ECT can continue to be effective as she and outpatient team reports that has been in the past. Will continue with ECT treatment however will likely discharge next week and patient can continue ECT as an outpatient. As mentioned she is at her baseline which is effectively managed in the community; she is returning to supportive environment with staff who know her well. Hx of failed med trials (not complete) Seroquel, risperdal, abilify, geodon, prozac, remeron, effexor, wellbutrin PLAN: CV 1:1 sitter for now (self-harming behaviors); common for her admissions changed lithium to extended release and made it 1 time daily in the afternoon Scheduled clonidine 0.1 mg t.i.d. for help with morning irritability following nightmares discuss plan w/ staff at intermediate ECT Series: ECT #1 08/26 ECT #2 08/28 ECT #3 08/31 Pending NPO after midnight Patient educated on: therapeutic strategies Informed Consent: understands Reason for contiued inpatient stay Substantial Risk for: stable for discharge (at her baseline) Time Spent With Patient Time: Total time managing care of this patient today ____ minutes.
[2022-08-29 11:38] VITALS: BP 123/73; PULSE 53; RESP 16; TEMP 36.2; O2SAT 99
[2022-08-29] MEDS: cloNIDine HCL 0.1 MG TABLET PO ×3 (11:47→21:55)
[2022-08-29] MEDS: Benztropine Mesylate 0.5 MG TABLET PO ×2 (11:47→21:55)
[2022-08-29] MEDS: Docusate Sodium 100 MG CAPSULE PO ×2 (11:47→21:55)
[2022-08-29] MEDS: Ferrous Sulfate 324 MG TABLET.DR PO (11:48)
[2022-08-29] MEDS: DULoxetine HCl 60 MG CAPSULE.DR PO (11:48)
[2022-08-29] MEDS: Omeprazole 20 MG CAPSULE.DR PO (12:00)
[2022-08-29] MEDS: Milk of Magnesia 30 ML ORAL.SUSP PO ×2 (12:56→14:12)
[2022-08-29] MEDS: HaloperidoL 5 MG TABLET PO (13:43)
[2022-08-29] MEDS: hydrOXYzine HCL 50 MG TABLET PO ×2 (14:09→21:57)
[2022-08-29 14:12] VITALS: BP 90/55
[2022-08-29 15:48] VITALS: BP 174/102; PULSE 72; RESP 16; TEMP 36.4; O2SAT 93
[2022-08-29] MEDS: Lithium Carbonate ER 300 MG TABLET.ER PO (15:54)
[2022-08-29] MEDS: Ziprasidone Mesylate 20 MG VIAL IM (16:42)
[2022-08-29 18:00] VITALS: BP 112/76; PULSE 68; RESP 18; TEMP 36.4; O2SAT 100
[2022-08-29] MEDS: Prazosin HCL 5 MG CAPSULE 15 MG PO (21:55)
[2022-08-29] MEDS: diphenhydrAMINE HCL 25 MG CAPSULE 100 MG PO (21:55)
[2022-08-29] MEDS: Prazosin HCL 1 MG CAPSULE PO (21:55)
[2022-08-29] MEDS: traZODone HCL 50 MG TABLET 150 MG PO (21:56)
[2022-08-30 10:51] VITALS: BP 114/63; PULSE 91; RESP 16; TEMP 36.2; O2SAT 99
[2022-08-30] MEDS: Ferrous Sulfate 324 MG TABLET.DR PO (10:59)
[2022-08-30] MEDS: Benztropine Mesylate 0.5 MG TABLET PO ×2 (10:59→20:50)
[2022-08-30] MEDS: Omeprazole 20 MG CAPSULE.DR PO (10:59)
[2022-08-30] MEDS: DULoxetine HCl 60 MG CAPSULE.DR PO (10:59)
[2022-08-30] MEDS: cloNIDine HCL 0.1 MG TABLET PO ×3 (10:59→20:50)
[2022-08-30] MEDS: Docusate Sodium 100 MG CAPSULE PO ×2 (10:59→20:50)
[2022-08-30] MEDS: hydrOXYzine HCL 50 MG TABLET PO (13:50)
[2022-08-30] MEDS: HaloperidoL 5 MG TABLET PO (13:50)
--- NOTE | 2022-08-30 14:37 | P.PNPSI_ITS ---
Subjective Subjective Date of Service: 08/30/22 Reason For Visit: Schizoaffective D/O PTSD Borderline Persosnality Interim History: Patient in better behavioral and impulse control today; she is still making comments about one-to-one sitter she had on Wednesday. Administrative Sales Assistant discussed with patient her behaviors. Patient said she only punched a wall yesterday and did not Bang her head and hopes to get ECT tomorrow which is the plan. Mental Status Exam Mental Status Exam Narrative: Pt is alert and oriented; behavior vacillates, sometimes calm, reasonable and engaged to dysregulated and intermittently self-harming (this is baseline behavior); dressed in casual attire with unkempt hair but adequate hygiene; numerous of scars up and down bilateral forearms from hx of superficial cutting; mood is described as better and affect congruent , brighter; eye contact appropriate; Speech is normal volume, rate, prosody when calm; no psychomotor retardation present; thought process is goal directed; Thought content on dealing with struggles, coping with feelings; how to cope with tense situation at half-way w/ antagonistic peer; intermittent self-harm; otherwise pertinent to relevant topics and without any delusional content, paranoid ideations or grandiosity; intermittent SI (which is chronic) but none currently; no HI. No AH; Patients insight and judgment are impaired but adequate and at baseline Diagnostics Vital Signs (24Hr): Vital Signs - 24 hr 08/29/22 15:48 08/29/22 18:00 08/30/22 10:51 Temperature 97.6 F 97.6 F 97.2 F Pulse Rate 72 68 91 Respiratory Rate 16 18 16 Blood Pressure 174/102 H 112/76 114/63 Pulse Oximetry 93 100 99 Oxygen Delivery Method Room Air Room Air Room Air BMI result Body Mass Index 41.0 Imaging Radiology Impressions: ITS Impressions Head CT 08/25/22 15:44 IMPRESSION: No acute intracranial abnormality. Medications Medications Current Medications Acetaminophen (Acetaminophen 325 Mg Tablet) 650 mg PO Q6H PRN PRN Reason: Headache/Pain Mild Scale (1-3) Last Admin: 08/27/22 08:46 Dose: 650 mg Al Hydroxide/Mg Hydroxide (Magnesium Hydrox/Alum Hydrox 30 Ml Oral.Susp) 30 ml PO Q6H PRN PRN Reason: Heartburn/Nausea Albuterol Sulfate (Albuterol Sulfate 90 Mcg 8 Gm Inhaler) 2 puff INHALE BID PRN PRN Reason: Wheezing Benzonatate (Benzonatate 100 Mg Capsule) 100 mg PO TID PRN PRN Reason: cough Benztropine Mesylate (Benztropine Mesylate 0.5 Mg Tablet) 0.5 mg PO BID [facility] Last Admin: 08/30/22 10:59 Dose: 0.5 mg Clonidine HCl (Clonidine Hcl 0.1 Mg Tablet) 0.1 mg PO TID [facility]; Protocol Last Admin: 08/30/22 10:59 Dose: 0.1 mg Diphenhydramine HCl (Diphenhydramine Hcl 25 Mg Capsule) 100 mg PO BEDTIME [facility] Last Admin: 08/29/22 21:55 Dose: 100 mg Docusate Sodium (Docusate Sodium 100 Mg Capsule) 100 mg PO BID [facility] Last Admin: 08/30/22 10:59 Dose: 100 mg Duloxetine HCl (Duloxetine Hcl 60 Mg Capsule.) 60 mg PO DAILY [facility] Last Admin: 08/30/22 10:59 Dose: 60 mg Ferrous Sulfate (Ferrous Sulfate 324 Mg Tablet.) 324 mg PO DAILY [facility] Last Admin: 08/30/22 10:59 Dose: 324 mg Fluticasone/Vilanterol (Fluticasone/Vilanterol 200/25 Blst.W.Dev) 1 puff INHALE DAILY [facility] Last Admin: 08/30/22 11:03 Dose: Not Given Haloperidol (Haloperidol 5 Mg Tablet) 5 mg PO TID PRN PRN Reason: Agitation Last Admin: 08/30/22 13:50 Dose: 5 mg Haloperidol Decanoate (Haloperidol Decanoate 50 Mg/Ml Ampul) 75 mg IM Q28D [facility] Last Admin: 08/21/22 16:30 Dose: 75 mg Hydroxyzine HCl (Hydroxyzine Hcl 50 Mg Tablet) 50 mg PO BID PRN PRN Reason: Anxiety Last Admin: 08/30/22 13:50 Dose: 50 mg Lactic Acid (Ammonium Lactate 12 % Cream 140 Gm Tube) 1 appl TOPICAL BID PRN; Protocol PRN Reason: Dry Skin [place] Carbonate ([place] Carbonate Er 300 Mg Tablet.Er) 300 mg PO DAILY@1600 [facility] Last Admin: 08/29/22 15:54 Dose: 300 mg Magnesium Hydroxide (Milk Of Magnesia 30 Ml Oral.Susp) 30 ml PO DAILY PRN PRN Reason: Constipation Last Admin: 08/29/22 12:56 Dose: 30 ml Nicotine Polacrilex (Nicotine Polacrilex 2 Mg Gum) 2 mg BUCCAL Q2H PRN PRN Reason: Smoking Cessation Omeprazole (Omeprazole 20 Mg Capsule.Dr) 20 mg PO DAILY [facility] Last Admin: 08/30/22 10:59 Dose: 20 mg Ondansetron HCl (Ondansetron Odt 4 Mg Tab.Rapdis) 4 mg TRANSLINGU Q6H PRN PRN Reason: nausea/vomiting Prazosin HCl (Prazosin Hcl 1 Mg Capsule) 1 mg PO BEDTIME [facility]; Protocol Last Admin: 08/29/22 21:55 Dose: 1 mg Prazosin HCl (Prazosin Hcl 5 Mg Capsule) 15 mg PO BEDTIME [facility]; Protocol Last Admin: 08/29/22 21:55 Dose: 15 mg Sodium Biphosphate/Sodium Phosphate (Sodium Phosphate,[place]-Dibasic 133 Ml Enema) 133 ml MD ONCE PRN PRN Reason: Constipation Last Admin: 08/28/22 22:46 Dose: 133 ml Trazodone HCl (Trazodone Hcl 50 Mg Tablet) 150 mg PO BEDTIME [facility] Last Admin: 08/29/22 21:56 Dose: 150 mg Allergies Allergies Allergy/AdvReac Type Severity Reaction Status Date / Time carbamazepine [From TEGRETOL] AdvReac Unknown NAUSEA & Verified 05/15/22 19:31 VOMITING Fish Containing Products AdvReac Stomach Verified 05/15/22 19:31 Upset Assessment & Plan Assessment & Plan (1) Chronic post-traumatic stress disorder (PTSD): Status: Chronic Code(s): F43.12 - Post-traumatic stress disorder, chronic (2) Borderline personality disorder: Status: Chronic Code(s): F60.3 - Borderline personality disorder Plan Pt is a 37 y.o. female, ? PTSD with extensive trauma history, and BPD, (carries a dx of schizoaffective DO), depressive type,chronic SI, chronic self-harming behaviors and multiple inpatient admissions who re-presents a few days after discharging from the ED for continued ?superficially cutting and increased SI in the face of ongoing psychosocial stressor from peer at half-way. -numerous admissions with similar presentations Hospital course: 08.19.22 last night self-harming.? Patient says she is going to continue trying not to do so and if she can remain with good behavioral and impulse control for 3 days, she hopes she can return to half-way.? Patient is trying to figure out how she will be able to coexist with antagonistic peer at half-way.? Intermittent SI which is chronic.; intermittent self-harming thoughts/urges but patient says she is trying to resist. 08/20/22 pt vacillates between calm and dysregulated; still self-harming (not far from baseline) 08/21/2022 patient a little more calm today and hoping for discharge early next week.? Discussed ECT and how it helps her stay safe and without any self-harming behaviors for several months afterwards; half-way staff corroborates -08/21/22 ekg:?? QTc Int : 413 ms 08/22 banged head last night but patient is trying hard to remain safe.? Wants ECT.? Moving medications to afternoon to help with afternoon dysregulation which is her pattern 08/23 patient remains with desire to self-harm but is trying hard not to and has not Banged her head, though she did superficially cut her arm 08/24 working to remain safe, no self-harm today so far; wants ECT.? Case discussed with Dr. Silva.? Patient asked for trial of Adderall or Ritalin to see if it could help with impulse control 08/25 remains w/ urges, but trying not to self harm; no head banging;? AH present 08/27 patient reports very tempted to self-harm however she has continued to keep herself safe; dealing with some upsetting family news. Discussed case with team and although patient has been upset she has a particular sitter, team agrees that patient's behavior is manipulative and that it is best for her to practice being in self-control even when not getting her way. Of note, sitter is doing a good job and done nothing inappropriate. 08/28 patient dysregulated today, poor insight into situation Discussed case with nursing; also discussed case with dialysis social worker and recommendations from half-way. 08/29 continue treatment plan; Discussed case with nursing; met with patient; reviewed vitals and WNL -patient has overall kept herself in increased safe behavior over the past week. Her mood and behavioral ability is part of her baseline; further hospitalization or medication management will not change this. Perhaps ECT can continue to be effective as she and outpatient team reports that has been in the past. Will continue with ECT treatment however will likely discharge next week and patient can continue ECT as an outpatient. As mentioned she is at her baseline which is effectively managed in the community; she is returning to supportive environment with staff who know her well. 08/30 patient remains at baseline; plan is for ECT on 08/31 and then likely discharge the following day; Discussed case with nursing; met with patient; reviewed vitals and WNL Hx of failed med trials (not complete) Seroquel, risperdal, abilify, geodon, prozac, remeron, effexor, wellbutrin PLAN: CV 1:1 sitter for now (self-harming behaviors); common for her admissions changed lithium to extended release and made it 1 time daily in the afternoon Scheduled clonidine 0.1 mg t.i.d. for help with morning irritability following nightmares discuss plan w/ staff at half-way ECT Series: ECT #1 08/26 ECT #2 08/28 ECT #3 08/31 Pending NPO after midnight Patient educated on: ECT Informed Consent: understands Reason for contiued inpatient stay Substantial Risk for: stable for discharge Time Spent With Patient Time: Total time managing care of this patient today ____ minutes.
[2022-08-30 18:00] VITALS: BP 102/56; PULSE 61; RESP 16; TEMP 36.3; O2SAT 98
[2022-08-30] MEDS: Prazosin HCL 1 MG CAPSULE PO (20:50)
[2022-08-30] MEDS: diphenhydrAMINE HCL 25 MG CAPSULE 100 MG PO (20:50)
[2022-08-30] MEDS: Prazosin HCL 5 MG CAPSULE 15 MG PO (20:51)
[2022-08-30] MEDS: traZODone HCL 50 MG TABLET 150 MG PO ×2 (20:51→23:49)
[2022-08-31 06:19] VITALS: BP 100/53; PULSE 84; RESP 18; TEMP 36.3; O2SAT 100
[2022-08-31 06:35] VITALS: BP 103/60; PULSE 78; RESP 16; TEMP 36.4; O2SAT 97
[2022-08-31 06:43] VITALS: BP 100/53; PULSE 84; RESP 18; TEMP 36.3; O2SAT 100
--- NOTE | 2022-08-31 06:43 | P.CONAN_ITS ---
[facility] Active Problems Active Problems: All Active Problems (Updated 08/23/22 @ 15:02 by JUANITO Marquez) Routine medical exam (Acute) Suicidal ideation (Acute) Deliberate self-cutting (Acute) COVID-19 (Acute) COVID-19 (Acute) Sprain of left foot (Acute) Schizoaffective disorder, depressive type (Chronic) Hernia (Chronic) Chronic post-traumatic stress disorder (PTSD) (Chronic) Sprain of anterior cruciate ligament of right knee (Acute) Injury of ligament of right knee (Acute) Increased BMI (Acute) GERD (gastroesophageal reflux disease) (Acute) Borderline personality disorder (Chronic) Past Medical History Medical History Acute post-traumatic stress disorder Adjustment disorder Anxiety Asthma Borderline personality disorder Chronic post-traumatic stress disorder (PTSD) COPD (chronic obstructive pulmonary disease) Depression GERD (gastroesophageal reflux disease) Increased BMI Injury, self-inflicted Intentional self-harm PTSD (post-traumatic stress disorder) Recurrent major depression-severe Schizoaffective disorder Self-harming behavior Suicidal ideation Suicidal ideation Family History Family History (Updated 08/23/22 @ 14:26 by JUANITO Marquez) Mother Brain cancer Other No family history of cardiac disease Family history of problems with anesthesia: No Surgical History History of Problems with Anesthesia: No Social History Social History Household Members: Other Household Members Other:: custodial Housing: Assisted Living Facility Housing Other:: custodial Do you presently have visiting nurse or other home services: No Alcohol intake: unknown Patient Tobacco Use Status: Current everyday Tobacco user Tobacco use type: Cigarette Cigarette Packs Per Day: 0.5 Cigarettes Per Day: 10.0 Years Smoked: 17 Smoked in Last 30 Days: No e-Cigarette/Vaping Use: Never Used Patient Interested in Nicotine Replacement: Yes (patch and gum) Patient Given Instructions on How to Stop Smoking: Yes Date Education Initiated: 08/17/22 Second Hand Smoke Exposure: Yes Use of substances other than those prescribed or required for medical reasons: Yes Substance Use Type: Marijuana Substance Use Frequency: Daily Last Used Substance: Just Prior to Admission Currently Displaying Signs/Symptoms of Drug Intoxication Withdrawal: No Any prior treatment program specific to substance use: No Have you been hit, kicked, punched, or otherwise hurt by someone within the past year? If so, by whom?: No Do you feel safe in your current relationship?: No Current Relationship Is there a partner from a previous relationship who is making you feel unsafe now?: No Are you made to feel afraid or neglected: No Advance Directives: No Advance Directives Information Provided: No Do you have thoughts of harming others: None Do you have a plan to hurt others: No Plan Recently lost weight without trying: No How much weight loss: Not applicable Eating poorly because of decreased appetite: No Nutrition screen score: 0 Nutrition Risks: No Nutritional Risk Patient : No : No Poor oral hygiene: No service: No Sexual orientation: Straight/Heterosexual Meds Allergies Allergy/AdvReac Type Severity Reaction Status Date / Time carbamazepine [From TEGRETOL] AdvReac Unknown NAUSEA & Verified 05/15/22 19:31 VOMITING Fish Containing Products AdvReac Stomach Verified 05/15/22 19:31 Upset Active Medications: Current Medications Acetaminophen (Acetaminophen 325 Mg Tablet) 650 mg PO Q6H PRN PRN Reason: Headache/Pain Mild Scale (1-3) Last Admin: 08/27/22 08:46 Dose: 650 mg Al Hydroxide/Mg Hydroxide (Magnesium Hydrox/Alum Hydrox 30 Ml Oral.Susp) 30 ml PO Q6H PRN PRN Reason: Heartburn/Nausea Albuterol Sulfate (Albuterol Sulfate 90 Mcg 8 Gm Inhaler) 2 puff INHALE BID PRN PRN Reason: Wheezing Benzonatate (Benzonatate 100 Mg Capsule) 100 mg PO TID PRN PRN Reason: cough Benztropine Mesylate (Benztropine Mesylate 0.5 Mg Tablet) 0.5 mg PO BID [facility] Last Admin: 08/30/22 20:50 Dose: 0.5 mg Clonidine HCl (Clonidine Hcl 0.1 Mg Tablet) 0.1 mg PO TID [facility]; Protocol Last Admin: 08/30/22 20:50 Dose: 0.1 mg Diphenhydramine HCl (Diphenhydramine Hcl 25 Mg Capsule) 100 mg PO BEDTIME [facility] Last Admin: 08/30/22 20:50 Dose: 100 mg Docusate Sodium (Docusate Sodium 100 Mg Capsule) 100 mg PO BID [facility] Last Admin: 08/30/22 20:50 Dose: 100 mg Duloxetine HCl (Duloxetine Hcl 60 Mg Capsule.) 60 mg PO DAILY [facility] Last Admin: 08/30/22 10:59 Dose: 60 mg Ferrous Sulfate (Ferrous Sulfate 324 Mg Tablet.) 324 mg PO DAILY [facility] Last Admin: 08/30/22 10:59 Dose: 324 mg Fluticasone/Vilanterol (Fluticasone/Vilanterol 200/25 Blst.W.Dev) 1 puff INHALE DAILY [facility] Last Admin: 08/30/22 11:03 Dose: Not Given Haloperidol (Haloperidol 5 Mg Tablet) 5 mg PO TID PRN PRN Reason: Agitation Last Admin: 08/30/22 13:50 Dose: 5 mg Haloperidol Decanoate (Haloperidol Decanoate 50 Mg/Ml Ampul) 75 mg IM Q28D [facility] Last Admin: 08/21/22 16:30 Dose: 75 mg Hydroxyzine HCl (Hydroxyzine Hcl 50 Mg Tablet) 50 mg PO BID PRN PRN Reason: Anxiety Last Admin: 08/30/22 13:50 Dose: 50 mg Lactic Acid (Ammonium Lactate 12 % Cream 140 Gm Tube) 1 appl TOPICAL BID PRN; Protocol PRN Reason: Dry Skin [place] Carbonate ([place] Carbonate Er 300 Mg Tablet.Er) 300 mg PO DAILY@1600 [facility] Last Admin: 08/29/22 15:54 Dose: 300 mg Magnesium Hydroxide (Milk Of Magnesia 30 Ml Oral.Susp) 30 ml PO DAILY PRN PRN Reason: Constipation Last Admin: 08/29/22 12:56 Dose: 30 ml Nicotine Polacrilex (Nicotine Polacrilex 2 Mg Gum) 2 mg BUCCAL Q2H PRN PRN Reason: Smoking Cessation Omeprazole (Omeprazole 20 Mg Capsule.) 20 mg PO DAILY [facility] Last Admin: 08/30/22 10:59 Dose: 20 mg Ondansetron HCl (Ondansetron Odt 4 Mg Tab.Rapdis) 4 mg TRANSLINGU Q6H PRN PRN Reason: nausea/vomiting Prazosin HCl (Prazosin Hcl 1 Mg Capsule) 1 mg PO BEDTIME [facility]; Protocol Last Admin: 08/30/22 20:50 Dose: 1 mg Prazosin HCl (Prazosin Hcl 5 Mg Capsule) 15 mg PO BEDTIME [facility]; Protocol Last Admin: 08/30/22 20:51 Dose: 15 mg Sodium Biphosphate/Sodium Phosphate (Sodium Phosphate,[place]-Dibasic 133 Ml Enema) 133 ml SC ONCE PRN PRN Reason: Constipation Last Admin: 08/28/22 22:46 Dose: 133 ml Trazodone HCl (Trazodone Hcl 50 Mg Tablet) 150 mg PO BEDTIME [facility] Last Admin: 08/30/22 23:49 Dose: 150 mg Home Medications Medication Instructions Recorded Confirmed Last Taken Type acetaminophen 500 mg tablet 1 tab PO Q6H PRN pain 08/14/22 08/15/22 Unknown History albuterol sulfate 90 mcg/actuation 2 puff inhalation BID PRN Wheezing 08/14/22 08/15/22 Unknown History aerosol inhaler (ProAir HFA) ammonium lactate 12 % topical cream 1 appl topical BID PRN Dry Skin 08/14/22 08/15/22 Unknown History bacitracin 500 unit/gram topical 1 appl topical BID PRN Wound 08/14/22 08/15/22 Unknown History ointment Healing benzonatate 100 mg capsule 1 cap PO TID PRN cough 08/14/22 08/15/22 Unknown History benztropine 0.5 mg tablet 1 tab PO BID 08/14/22 08/15/22 Unknown History clonidine HCl 0.1 mg tablet 1 tab PO BID PRN anxiety 08/14/22 08/15/22 Unknown History diphenhydramine HCl 50 mg capsule 2 cap PO BEDTIME 08/14/22 08/15/22 Unknown History (Banophen) duloxetine 60 mg capsule,delayed 1 cap PO QAM 08/14/22 08/15/22 Unknown History release ferrous sulfate 325 mg (65 mg 1 tab PO QAM 08/14/22 08/15/22 Unknown History iron) tablet,delayed release fluticasone propionate 230 2 puff inhalation BID 08/14/22 08/15/22 Unknown History mcg-salmeterol 21 mcg/actuation HFA inhaler (Advair HFA) haloperidol 5 mg tablet 1 tab PO TID PRN Agitation 08/14/22 08/15/22 Unknown History haloperidol decanoate 100 mg/mL 0.75 ml IM QWEEK 08/14/22 08/15/22 Unknown History intramuscular solution hydroxyzine pamoate 50 mg capsule 1 cap PO BID PRN Anxiety 08/14/22 08/15/22 Unknown History lithium carbonate 300 mg tablet 1 tab PO BID 08/14/22 08/15/22 Unknown History lorazepam 1 mg tablet 1 tab PO TID PRN anxiety 08/14/22 08/15/22 Unknown History nicotine (polacrilex) 2 mg gum 2 mg buccal Q2H PRN Smoking 08/14/22 08/15/22 Unknown History Cessation omeprazole 20 mg tablet,delayed 20 mg PO DAILY 08/14/22 08/15/22 Unknown History release ondansetron HCl 4 mg tablet 1 tab PO Q6H PRN nausea/vomiting 08/14/22 08/15/22 Unknown History prazosin 1 mg capsule 1 cap PO BEDTIME 08/14/22 08/15/22 Unknown History prazosin 5 mg capsule 3 cap PO BEDTIME 08/14/22 08/15/22 Unknown History trazodone 50 mg tablet 2 tab PO BEDTIME PRN insomnia 08/14/22 08/15/22 Unknown History zolpidem 10 mg tablet 1 tab PO BEDTIME 08/14/22 08/15/22 Unknown History Exam Exam Date and Time: August 31, 2022 0643 Height,Weight and Vital Signs: Height 4 ft 11 in Weight 92.079 kg Last Vital Signs Temp 97.6 F 08/31/22 06:35 Pulse 78 08/31/22 06:35 Resp 16 08/31/22 06:35 BP 103/60 08/31/22 06:35 Pulse Ox 97 08/31/22 06:35 O2 Del Method 08/31/22 06:35 O2 Flow Rate 1 08/28/22 08:49 Pertinent Lab Results Pertinent Lab Results: Laboratory Tests 08/15/22 08/16/22 08/16/22 23:35 00:59 00:59 Estimat Average Glucose Hemoglobin A1c % Magnesium Triglycerides Cholesterol LDL Cholesterol, Calc HDL Cholesterol Vitamin B12 Folate TSH Free T4 Urine Color Urine Appearance Urine pH Ur Specific [place] Urine Protein Urine Glucose (UA) Urine Ketones Urine Blood Urine Nitrite Ur Leukocyte Esterase Urine RBC Urine WBC Ur Squamous Epith Cells Urine Bacteria Hyaline Casts Urine Opiates Screen Not Detected Urine Fentanyl Screen POSITIVE H SEE NOTE Urine Fentanyl NEGATIVE Ur Norfentanyl Quant NEGATIVE Ur Barbiturates Screen Not Detected Ur Phencyclidine Scrn Not Detected Ur Amphetamines Screen Not Detected U Benzodiazepines Scrn Not Detected Urine Cocaine Screen Not Detected U Marijuana (THC) Screen POSITIVE H COVID-19 (RAFAL) Positive A COVID-19 Clin Com See Note 01/11/0508/18/22 08/18/22 08:38 08:38 08:38 Estimat Average Glucose 85 Hemoglobin A1c % 4.6 Magnesium 1.8 Triglycerides 88 Cholesterol 144 LDL Cholesterol, Calc 91 HDL Cholesterol 36 Vitamin B12 211 Folate 4.3 TSH 3.48 Free T4 0.95 Urine Color Urine Appearance Urine pH Ur Specific [place] Urine Protein Urine Glucose (UA) Urine Ketones Urine Blood Urine Nitrite Ur Leukocyte Esterase Urine RBC Urine WBC Ur Squamous Epith Cells Urine Bacteria Hyaline Casts Urine Opiates Screen Urine Fentanyl Screen Urine Fentanyl Ur Norfentanyl Quant Ur Barbiturates Screen Ur Phencyclidine Scrn Ur Amphetamines Screen U Benzodiazepines Scrn Urine Cocaine Screen U Marijuana (THC) Screen COVID-19 (RAFAL) COVID-19 Clin Com 08/25/22 08/26/22 Unknown 06:20 Estimat Average Glucose Hemoglobin A1c % Magnesium Triglycerides Cholesterol LDL Cholesterol, Calc HDL Cholesterol Vitamin B12 Folate TSH Free T4 Urine Color Yellow Urine Appearance Clear Urine pH 7.5 Ur Specific [place] <= 1.005 Urine Protein Negative Urine Glucose (UA) Negative Urine Ketones Negative Urine Blood Trace H Urine Nitrite Negative Ur Leukocyte Esterase Negative Urine RBC 0-2 Urine WBC 0-5 Ur Squamous Epith Cells 3-5 Urine Bacteria None Seen Hyaline Casts 0-2 Urine Opiates Screen Urine Fentanyl Screen Urine Fentanyl Ur Norfentanyl Quant Ur Barbiturates Screen Ur Phencyclidine Scrn Ur Amphetamines Screen U Benzodiazepines Scrn Urine Cocaine Screen U Marijuana (THC) Screen COVID-19 (RAFAL) Negative COVID-19 Clin Com See Note Airway Mallampati Class: II TM Dist: >3cm Neck ROM: Full Heart: rrr Lungs: cta Assessment and Plan Assessment Anesthesia Assessment: Anesthesia Plan Discussed and Chart Reviewed Final Anesthetic Review Family History of Problems with Anesthesia: No History of Problems with Anesthesia: No NPO: Yes ASA Class: III Final Preanesthetic Review: No Changes in Pt Med Stat, Meds/Allgs Chart Reviewed and Consent Obtained/Reviewed Patient Risk: Intermediate Procedure Risk: Intermediate Anesthetic Plan Anesthetic Plan: GA Disposition: Standard PACU
[2022-08-31 08:31] VITALS: BP 124/66; PULSE 68; RESP 16; TEMP 36.7; O2SAT 96
[2022-08-31] MEDS: Ferrous Sulfate 324 MG TABLET.DR PO (08:39)
[2022-08-31] MEDS: Docusate Sodium 100 MG CAPSULE PO ×2 (08:39→21:41)
[2022-08-31] MEDS: cloNIDine HCL 0.1 MG TABLET PO ×2 (08:39→21:41)
[2022-08-31] MEDS: DULoxetine HCl 60 MG CAPSULE.DR PO (08:39)
[2022-08-31] MEDS: Benztropine Mesylate 0.5 MG TABLET PO ×2 (08:39→21:40)
[2022-08-31] MEDS: Omeprazole 20 MG CAPSULE.DR PO (08:40)
--- NOTE | 2022-08-31 10:14 | P.PNPSI_ITS ---
Subjective Subjective Date of Service: 08/31/22 Reason For Visit: Schizoaffective D/O PTSD Borderline Persosnality Interim History: Met with patient, discussed and teams; discussed ECT with Dr. Davenport Patient reports feeling better and that ECT helps. Missed ECT today but will get it tomorrow. She is feeling stable enough and has been able to keep herself safe; patient feels ready to go home ready for discharge. Team agrees. Mental Status Exam Mental Status Exam Narrative: Pt is alert and oriented; behavior vacillates, sometimes calm, reasonable and engaged to dysregulated and intermittently self-harming (this is baseline behavior); dressed in casual attire with unkempt hair but adequate hygiene; numerous of scars up and down bilateral forearms from hx of superficial cutting; mood is described as better and affect congruent , brighter; eye contact appropriate; Speech is normal volume, rate, prosody when calm; no psychomotor retardation present; thought process is goal directed; Thought content on dealing with struggles, coping with feelings; how to cope with tense situation at care home w/ antagonistic peer; intermittent self-harm; otherwise pertinent to relevant topics and without any delusional content, paranoid ideations or grandiosity; intermittent SI (which is chronic) but none currently; no HI. No AH; Patients insight and judgment are impaired but adequate and at baseline Diagnostics Vital Signs (24Hr): Vital Signs - 24 hr 08/30/22 10:51 08/30/22 18:00 08/31/22 06:19 Temperature 97.2 F 97.4 F 97.3 F Pulse Rate 91 61 84 Respiratory Rate 16 16 18 Blood Pressure 114/63 102/56 L 100/53 L Pulse Oximetry 99 98 100 Oxygen Delivery Method Room Air Room Air 08/31/22 06:35 08/31/22 06:43 08/31/22 06:43 Temperature 97.6 F 97.3 F Pulse Rate 78 84 Respiratory Rate 16 18 Blood Pressure 103/60 100/53 L Pulse Oximetry 97 100 100 Oxygen Delivery Method Room Air Room Air 08/31/22 08:31 Temperature 98.1 F Pulse Rate 68 Respiratory Rate 16 Blood Pressure 124/66 Pulse Oximetry 96 Oxygen Delivery Method Room Air BMI result Body Mass Index 41.0 Imaging Radiology Impressions: ITS Impressions Head CT 08/25/22 15:44 IMPRESSION: No acute intracranial abnormality. Medications Medications Current Medications Acetaminophen (Acetaminophen 325 Mg Tablet) 650 mg PO Q6H PRN PRN Reason: Headache/Pain Mild Scale (1-3) Last Admin: 08/27/22 08:46 Dose: 650 mg Al Hydroxide/Mg Hydroxide (Magnesium Hydrox/Alum Hydrox 30 Ml Oral.Susp) 30 ml PO Q6H PRN PRN Reason: Heartburn/Nausea Albuterol Sulfate (Albuterol Sulfate 90 Mcg 8 Gm Inhaler) 2 puff INHALE BID PRN PRN Reason: Wheezing Benzonatate (Benzonatate 100 Mg Capsule) 100 mg PO TID PRN PRN Reason: cough Benztropine Mesylate (Benztropine Mesylate 0.5 Mg Tablet) 0.5 mg PO BID [facility] Last Admin: 08/31/22 08:39 Dose: 0.5 mg Clonidine HCl (Clonidine Hcl 0.1 Mg Tablet) 0.1 mg PO TID [facility]; Protocol Last Admin: 08/31/22 08:39 Dose: 0.1 mg Diphenhydramine HCl (Diphenhydramine Hcl 25 Mg Capsule) 100 mg PO BEDTIME [facility] Last Admin: 08/30/22 20:50 Dose: 100 mg Docusate Sodium (Docusate Sodium 100 Mg Capsule) 100 mg PO BID [facility] Last Admin: 08/31/22 08:39 Dose: 100 mg Duloxetine HCl (Duloxetine Hcl 60 Mg Capsule.) 60 mg PO DAILY [facility] Last Admin: 08/31/22 08:39 Dose: 60 mg Ferrous Sulfate (Ferrous Sulfate 324 Mg Tablet.) 324 mg PO DAILY [facility] Last Admin: 08/31/22 08:39 Dose: 324 mg Fluticasone/Vilanterol (Fluticasone/Vilanterol 200/25 Blst.W.Dev) 1 puff INHALE DAILY [facility] Last Admin: 08/31/22 09:01 Dose: Not Given Haloperidol (Haloperidol 5 Mg Tablet) 5 mg PO TID PRN PRN Reason: Agitation Last Admin: 08/30/22 13:50 Dose: 5 mg Haloperidol Decanoate (Haloperidol Decanoate 50 Mg/Ml Ampul) 75 mg IM Q28D [facility] Last Admin: 08/21/22 16:30 Dose: 75 mg Hydroxyzine HCl (Hydroxyzine Hcl 50 Mg Tablet) 50 mg PO BID PRN PRN Reason: Anxiety Last Admin: 08/30/22 13:50 Dose: 50 mg Lactated Ringer's (Lr) 1,000 mls @ 50 mls/hr IVCONT .Q20H [facility] Last Admin: 08/31/22 09:00 Dose: Not Given Lactic Acid (Ammonium Lactate 12 % Cream 140 Gm Tube) 1 appl TOPICAL BID PRN; Protocol PRN Reason: Dry Skin [place] Carbonate ([place] Carbonate Er 300 Mg Tablet.Er) 300 mg PO DAILY@1600 [facility] Last Admin: 08/29/22 15:54 Dose: 300 mg Magnesium Hydroxide (Milk Of Magnesia 30 Ml Oral.Susp) 30 ml PO DAILY PRN PRN Reason: Constipation Last Admin: 08/29/22 12:56 Dose: 30 ml Nicotine Polacrilex (Nicotine Polacrilex 2 Mg Gum) 2 mg [place]CCAL Q2H PRN PRN Reason: Smoking Cessation Omeprazole (Omeprazole 20 Mg Capsule.Dr) 20 mg PO DAILY [facility] Last Admin: 08/31/22 08:40 Dose: 20 mg Ondansetron HCl (Ondansetron Odt 4 Mg Tab.Rapdis) 4 mg TRANSLINGU Q6H PRN PRN Reason: nausea/vomiting Prazosin HCl (Prazosin Hcl 1 Mg Capsule) 1 mg PO BEDTIME [facility]; Protocol Last Admin: 08/30/22 20:50 Dose: 1 mg Prazosin HCl (Prazosin Hcl 5 Mg Capsule) 15 mg PO BEDTIME [facility]; Protocol Last Admin: 08/30/22 20:51 Dose: 15 mg Sodium Biphosphate/Sodium Phosphate (Sodium Phosphate,[place]-Dibasic 133 Ml Enema) 133 ml [place] ONCE PRN PRN Reason: Constipation Last Admin: 08/28/22 22:46 Dose: 133 ml Trazodone HCl (Trazodone Hcl 50 Mg Tablet) 150 mg PO BEDTIME [facility] Last Admin: 08/30/22 23:49 Dose: 150 mg Allergies Allergies Allergy/AdvReac Type Severity Reaction Status Date / Time carbamazepine [From TEGRETOL] AdvReac Unknown NAUSEA & Verified 05/15/22 19:31 VOMITING Fish Containing Products AdvReac Stomach Verified 05/15/22 19:31 Upset Assessment & Plan Assessment & Plan (1) Chronic post-traumatic stress disorder (PTSD): Status: Chronic Code(s): F43.12 - Post-traumatic stress disorder, chronic (2) Borderline personality disorder: Status: Chronic Code(s): F60.3 - Borderline personality disorder Plan Pt is a 37 y.o. female, ? PTSD with extensive trauma history, and BPD, (carries a dx of schizoaffective DO), depressive type,chronic SI, chronic self-harming behaviors and multiple inpatient admissions who re-presents a few days after discharging from the ED for continued ?superficially cutting and increased SI in the face of ongoing psychosocial stressor from peer at care home. -numerous admissions with similar presentations Hospital course: 08.19.22 last night self-harming.? Patient says she is going to continue trying not to do so and if she can remain with good behavioral and impulse control for 3 days, she hopes she can return to care home.? Patient is trying to figure out how she will be able to coexist with antagonistic peer at care home.? Intermittent SI which is chronic.; intermittent self-harming thoughts/urges but patient says she is trying to resist. 08/20/22 pt vacillates between calm and dysregulated; still self-harming (not far from baseline) 08/21/2022 patient a little more calm today and hoping for discharge early next week.? Discussed ECT and how it helps her stay safe and without any self-harming behaviors for several months afterwards; care home staff corroborates -08/21/22 ekg:?? QTc Int : 413 ms 08/22 banged head last night but patient is trying hard to remain safe.? Wants ECT.? Moving medications to afternoon to help with afternoon dysregulation which is her pattern 08/23 patient remains with desire to self-harm but is trying hard not to and has not Banged her head, though she did superficially cut her arm 08/24 working to remain safe, no self-harm today so far; wants ECT.? Case discussed with Dr. Silva.? Patient asked for trial of Adderall or Ritalin to see if it could help with impulse control 08/25 remains w/ urges, but trying not to self harm; no head banging;? AH present 08/27 patient reports very tempted to self-harm however she has continued to keep herself safe; dealing with some upsetting family news. Discussed case with team and although patient has been upset she has a particular sitter, team agrees that patient's behavior is manipulative and that it is best for her to practice being in self-control even when not getting her way. Of note, sitter is doing a good job and done nothing inappropriate. 08/28 patient dysregulated today, poor insight into situation Discussed case with nursing; also discussed case with 7th grade social studies teacher and recommendations from care home. 08/29 continue treatment plan; Discussed case with nursing; met with patient; reviewed vitals and WNL -patient has overall kept herself in increased safe behavior over the past week. Her mood and behavioral ability is part of her baseline; further hospitalization or medication management will not change this. Perhaps ECT can continue to be effective as she and outpatient team reports that has been in the past. Will continue with ECT treatment however will likely discharge next week and patient can continue ECT as an outpatient. As mentioned she is at her baseline which is effectively managed in the community; she is returning to supportive environment with staff who know her well. 08/30 patient remains at baseline; plan is for ECT on 08/31 and then likely discharge the following day; Discussed case with nursing; met with patient; reviewed vitals and WNL 08/31 patient at baseline; ECT helping. She will get ECT on 09/01 and then discharge home. She will continue ECT as an outpatient. Team agrees that patient is at her baseline which, in the community remains with intermittently self harm, behaviors of which her care home staff have navigating for years and during which patient remains in the community.? Team discussed patient's discharge with care home who also agreed that she is likely at her baseline and okay for discharge.? She denies any SI or HI and feels stable and ready to go home; patient is future oriented. While she will almost certainly continue to struggle with intermittent urges and behaviors of self- harm, staying in the hospital longer will not resolve this; rather this is a long-term, chronic issue that continues to require intermediate frame tender term outpt therapy, of which she is engaged.? Patient's request for discharge honored. Hx of failed med trials (not complete) Seroquel, risperdal, abilify, geodon, prozac, remeron, effexor, wellbutrin PLAN: CV 1:1 sitter for now (self-harming behaviors); common for her admissions changed lithium to extended release and made it 1 time daily in the afternoon Scheduled clonidine 0.1 mg t.i.d. for help with morning irritability following nightmares discuss plan w/ staff at care home ECT Series: ECT #1 08/26 ECT #2 08/28 ECT #3 09/01 NPO after midnight Patient educated on: diagnosis, ECT and therapeutic strategies Informed Consent: understands Reason for contiued inpatient stay Substantial Risk for: stable for discharge Time Spent With Patient Time: Total time managing care of this patient today ____ minutes.
[2022-08-31] MEDS: Acetaminophen 325 MG TABLET 650 MG PO (17:32)
[2022-08-31 21:39] VITALS: BP 129/73; PULSE 92; RESP 14; TEMP 36.3
[2022-08-31] MEDS: Benzonatate 100 MG CAPSULE PO (21:40)
[2022-08-31] MEDS: Prazosin HCL 1 MG CAPSULE PO (21:40)
[2022-08-31] MEDS: Prazosin HCL 5 MG CAPSULE 15 MG PO (21:40)
[2022-08-31] MEDS: diphenhydrAMINE HCL 25 MG CAPSULE 100 MG PO (21:40)
[2022-08-31] MEDS: traZODone HCL 50 MG TABLET 150 MG PO (21:40)
[2022-08-31] MEDS: HaloperidoL 5 MG TABLET PO (22:50)
[2022-09-01] VITALS (10 sets, daily range): BP systolic 101–127; BP diastolic 53–87; PULSE 72–94; RESP 16–18; TEMP 36.4–36.9; O2SAT 92–99
--- NOTE | 2022-09-01 07:16 | MHC.SHP ---
Pre-Procedural Eval Section A Date of Service: 09/01/22 The patient is an INPATIENT: Yes Changes since office visit: No Cold of Flu in the past 2 weeks, No New Medical Problems, No Changes in Medication and No Patient answered all questions The History & Physical has been completed within 30 days and I have reviewed it.: Yes Section B Chief Complaint: Schizoaffective D/O PTSD Borderline Persosnality Allergies: Allergies Allergy/AdvReac Type Severity Reaction Status Date / Time carbamazepine [From TEGRETOL] AdvReac Unknown NAUSEA & Verified 05/15/22 19:31 VOMITING Fish Containing Products AdvReac Stomach Verified 05/15/22 19:31 Upset Plan I have reviewed the history and physical and performed a pertinent physical examination on my patient. No changes have occurred unless specified. Time Spent With Patient Time: Total time managing care of this patient today ____ minutes.
--- NOTE | 2022-09-01 07:16 | HO.ECTPROC ---
ECT Procedure Note Diagnosis/Treatment Date of Service: 09/01/22 Diagnosis: Schizoaffective Disorder Previous ECT Date: 08/28/22 Current Treatment Number: 3 Treatment: Series Interval Clinical Notes: The patient reported improvement of mood, no evidence of suicidal thoughts, she is going to be discharged today. Time: Total time managing care of this patient today __30__ minutes. ECT Settings Device: THYMATRON DGx Electrode Placement: Bitemporal Program/Pulse Width: 0.50 Energy Percent: 100 Seizure Duration By EEG (in seconds): 27 By Motor Observation (in seconds): 24 Medications Administration General Anesthetic: Etomidate (16) Muscle Relaxant: Succinylcholine (100) Ancillary Medications Analgesics: Torodol - Pre ECT Anti-emetics: Zofran - Pre ECT Miscillaneous Medications: Propofol Airway Management Airway Management: Bag Mask Ventilation Treatment Recommendations No Changes Recommended: No change Pt Tolerated Procedure w/o Issue: Yes
--- NOTE | 2022-09-01 07:20 | P.CONAN_ITS ---
HPI - Anesthesia Eval Consult details Narrative: major depression [facility] Active Problems Active Problems: All Active Problems (Updated 09/01/22 @ 07:05 by Linnea Jerez RN) Injury of ligament of right knee (Acute) Sprain of anterior cruciate ligament of right knee (Acute) Hernia (Chronic) Schizoaffective disorder, depressive type (Chronic) Sprain of left foot (Acute) COVID-19 (Acute) COVID-19 (Acute) Suicidal ideation (Acute) Deliberate self-cutting (Acute) Routine medical exam (Acute) Chronic post-traumatic stress disorder (PTSD) (Chronic) Increased BMI (Acute) GERD (gastroesophageal reflux disease) (Acute) Borderline personality disorder (Chronic) Past Medical History Medical History Acute post-traumatic stress disorder Adjustment disorder Anxiety Asthma Borderline personality disorder Chronic post-traumatic stress disorder (PTSD) COPD (chronic obstructive pulmonary disease) Depression GERD (gastroesophageal reflux disease) History of electroconvulsive therapy Increased BMI Injury, self-inflicted Intentional self-harm PTSD (post-traumatic stress disorder) Recurrent major depression-severe Schizoaffective disorder Self-harming behavior Suicidal ideation Suicidal ideation Family History Family History Mother Brain cancer Other No family history of cardiac disease Family history of problems with anesthesia: No Surgical History History of Problems with Anesthesia: No Social History Social History Household Members: Other Household Members Other:: detention Housing: Assisted Living Facility Housing Other:: detention Do you presently have visiting nurse or other home services: No Alcohol intake: unknown Patient Tobacco Use Status: Current everyday Tobacco user Tobacco use type: Cigarette Cigarette Packs Per Day: 0.5 Cigarettes Per Day: 10.0 Years Smoked: 17 Smoked in Last 30 Days: No e-Cigarette/Vaping Use: Never Used Patient Interested in Nicotine Replacement: Yes (patch and gum) Patient Given Instructions on How to Stop Smoking: Yes Date Education Initiated: 08/17/22 Second Hand Smoke Exposure: Yes Use of substances other than those prescribed or required for medical reasons: Yes Substance Use Type: Marijuana Substance Use Frequency: Daily Last Used Substance: Just Prior to Admission Currently Displaying Signs/Symptoms of Drug Intoxication Withdrawal: No Any prior treatment program specific to substance use: No Have you been hit, kicked, punched, or otherwise hurt by someone within the past year? If so, by whom?: No Do you feel safe in your current relationship?: No Current Relationship Is there a partner from a previous relationship who is making you feel unsafe now?: No Are you made to feel afraid or neglected: No Advance Directives: No Advance Directives Information Provided: No Do you have thoughts of harming others: None Do you have a plan to hurt others: No Plan Recently lost weight without trying: No How much weight loss: Not applicable Eating poorly because of decreased appetite: No Nutrition screen score: 0 Nutrition Risks: No Nutritional Risk Patient : No : No Poor oral hygiene: No service: No Sexual orientation: Straight/Heterosexual Meds Allergies Allergy/AdvReac Type Severity Reaction Status Date / Time carbamazepine [From TEGRETOL] AdvReac Unknown NAUSEA & Verified 05/15/22 19:31 VOMITING Fish Containing Products AdvReac Stomach Verified 05/15/22 19:31 Upset Active Medications: Current Medications Acetaminophen (Acetaminophen 325 Mg Tablet) 650 mg PO Q6H PRN PRN Reason: Headache/Pain Mild Scale (1-3) Last Admin: 08/31/22 17:32 Dose: 650 mg Acetaminophen (Acetaminophen 325 Mg Tablet) 650 mg PO ONCE PRN PRN Reason: Pain, Mild (Pain Scale 1-3) Al Hydroxide/Mg Hydroxide (Magnesium Hydrox/Alum Hydrox 30 Ml Oral.Susp) 30 ml PO Q6H PRN PRN Reason: Heartburn/Nausea Albuterol Sulfate (Albuterol Sulfate 90 Mcg 8 Gm Inhaler) 2 puff INHALE BID PRN PRN Reason: Wheezing Benzonatate (Benzonatate 100 Mg Capsule) 100 mg PO TID PRN PRN Reason: cough Last Admin: 08/31/22 21:40 Dose: 100 mg Benztropine Mesylate (Benztropine Mesylate 0.5 Mg Tablet) 0.5 mg PO BID SULEIMAN Last Admin: 08/31/22 21:40 Dose: 0.5 mg Clonidine HCl (Clonidine Hcl 0.1 Mg Tablet) 0.1 mg PO TID SULEIMAN; Protocol Last Admin: 08/31/22 21:41 Dose: 0.1 mg Diphenhydramine HCl (Diphenhydramine Hcl 25 Mg Capsule) 100 mg PO BEDTIME SULEIMAN Last Admin: 08/31/22 21:40 Dose: 100 mg Docusate Sodium (Docusate Sodium 100 Mg Capsule) 100 mg PO BID [facility] Last Admin: 08/31/22 21:41 Dose: 100 mg Duloxetine HCl (Duloxetine Hcl 60 Mg Capsule.) 60 mg PO DAILY [facility] Last Admin: 08/31/22 08:39 Dose: 60 mg Ferrous Sulfate (Ferrous Sulfate 324 Mg Tablet.) 324 mg PO DAILY [facility] Last Admin: 08/31/22 08:39 Dose: 324 mg Fluticasone/Vilanterol (Fluticasone/Vilanterol 200/25 Blst.W.Dev) 1 puff INHALE DAILY [facility] Last Admin: 08/31/22 09:01 Dose: Not Given Haloperidol (Haloperidol 5 Mg Tablet) 5 mg PO TID PRN PRN Reason: Agitation Last Admin: 08/31/22 22:50 Dose: 5 mg Haloperidol Decanoate (Haloperidol Decanoate 50 Mg/Ml Ampul) 75 mg IM Q28D [facility] Last Admin: 08/21/22 16:30 Dose: 75 mg Hydroxyzine HCl (Hydroxyzine Hcl 50 Mg Tablet) 50 mg PO BID PRN PRN Reason: Anxiety Last Admin: 08/30/22 13:50 Dose: 50 mg Lactated Ringer's (Lr) 1,000 mls @ 50 mls/hr IVCONT .Q20H [facility] Last Admin: 09/01/22 04:31 Dose: Not Given Lactated Ringer's (Lr) 1,000 mls @ 50 mls/hr IVCONT .Q20H [facility] Lactic Acid (Ammonium Lactate 12 % Cream 140 Gm Tube) 1 appl TOPICAL BID PRN; Protocol PRN Reason: Dry Skin Gearhart Carbonate (Gearhart Carbonate Er 300 Mg Tablet.Er) 300 mg PO DAILY@1600 [facility] Last Admin: 08/31/22 18:16 Dose: Not Given Magnesium Hydroxide (Milk Of Magnesia 30 Ml Oral.Susp) 30 ml PO DAILY PRN PRN Reason: Constipation Last Admin: 08/29/22 12:56 Dose: 30 ml Nicotine Polacrilex (Nicotine Polacrilex 2 Mg Gum) 2 mg BUCCAL Q2H PRN PRN Reason: Smoking Cessation Omeprazole (Omeprazole 20 Mg Capsule.) 20 mg PO DAILY [facility] Last Admin: 08/31/22 08:40 Dose: 20 mg Ondansetron HCl (Ondansetron Odt 4 Mg Tab.Rapdis) 4 mg TRANSLINGU Q6H PRN PRN Reason: nausea/vomiting Ondansetron HCl (Ondansetron Hcl 4 Mg/2 Ml Vial) 4 mg IVPUSH ONCE PRN PRN Reason: Nausea and Vomiting Prazosin HCl (Prazosin Hcl 1 Mg Capsule) 1 mg PO BEDTIME SULEIMAN; Protocol Last Admin: 08/31/22 21:40 Dose: 1 mg Prazosin HCl (Prazosin Hcl 5 Mg Capsule) 15 mg PO BEDTIME SULEIMAN; Protocol Last Admin: 08/31/22 21:40 Dose: 15 mg Sodium Biphosphate/Sodium Phosphate (Sodium Phosphate,Swift-Dibasic 133 Ml Enema) [address] ONCE PRN PRN Reason: Constipation Last Admin: 08/28/22 22:46 Dose: 133 ml Trazodone HCl (Trazodone Hcl 50 Mg Tablet) 150 mg PO BEDTIME SULEIMAN Last Admin: 08/31/22 21:40 Dose: 150 mg Home Medications Medication Instructions Recorded Confirmed Last Taken Type acetaminophen 500 mg tablet 1 tab PO Q6H PRN pain 08/14/22 08/15/22 Unknown History albuterol sulfate 90 mcg/actuation 2 puff inhalation BID PRN Wheezing 08/14/22 08/15/22 Unknown History aerosol inhaler (ProAir HFA) ammonium lactate 12 % topical cream 1 appl topical BID PRN Dry Skin 08/14/22 08/15/22 Unknown History bacitracin 500 unit/gram topical 1 appl topical BID PRN Wound 08/14/22 08/15/22 Unknown History ointment Healing benzonatate 100 mg capsule 1 cap PO TID PRN cough 08/14/22 08/15/22 Unknown History benztropine 0.5 mg tablet 1 tab PO BID 08/14/22 08/15/22 Unknown History clonidine HCl 0.1 mg tablet 1 tab PO BID PRN anxiety 08/14/22 08/15/22 Unknown History diphenhydramine HCl 50 mg capsule 2 cap PO BEDTIME 08/14/22 08/15/22 Unknown History (Banophen) duloxetine 60 mg capsule,delayed 1 cap PO QAM 08/14/22 08/15/22 Unknown History release ferrous sulfate 325 mg (65 mg 1 tab PO QAM 08/14/22 08/15/22 Unknown History iron) tablet,delayed release fluticasone propionate 230 2 puff inhalation BID 08/14/22 08/15/22 Unknown History mcg-salmeterol 21 mcg/actuation HFA inhaler (Advair HFA) haloperidol 5 mg tablet 1 tab PO TID PRN Agitation 08/14/22 08/15/22 Unknown History haloperidol decanoate 100 mg/mL 0.75 ml IM QWEEK 08/14/22 08/15/22 Unknown History intramuscular solution hydroxyzine pamoate 50 mg capsule 1 cap PO BID PRN Anxiety 08/14/22 08/15/22 Unknown History lithium carbonate 300 mg tablet 1 tab PO BID 08/14/22 08/15/22 Unknown History lorazepam 1 mg tablet 1 tab PO TID PRN anxiety 08/14/22 08/15/22 Unknown History nicotine (polacrilex) 2 mg gum 2 mg buccal Q2H PRN Smoking 08/14/22 08/15/22 Unknown History Cessation omeprazole 20 mg tablet,delayed 20 mg PO DAILY 08/14/22 08/15/22 Unknown History release ondansetron HCl 4 mg tablet 1 tab PO Q6H PRN nausea/vomiting 08/14/22 08/15/22 Unknown History prazosin 1 mg capsule 1 cap PO BEDTIME 08/14/22 08/15/22 Unknown History prazosin 5 mg capsule 3 cap PO BEDTIME 08/14/22 08/15/22 Unknown History trazodone 50 mg tablet 2 tab PO BEDTIME PRN insomnia 08/14/22 08/15/22 Unknown History zolpidem 10 mg tablet 1 tab PO BEDTIME 08/14/22 08/15/22 Unknown History Exam Exam Date and Time: September 01, 2022 0720 Height,Weight and Vital Signs: Height 4 ft 11 in Weight 92.079 kg Last Vital Signs Temp 97.8 F 09/01/22 07:07 Pulse 94 09/01/22 07:07 Resp 18 09/01/22 07:07 BP 108/75 09/01/22 07:07 Pulse Ox 99 09/01/22 07:07 O2 Del Method 09/01/22 07:07 O2 Flow Rate 1 08/28/22 08:49 Pertinent Lab Results Pertinent Lab Results: Laboratory Tests 08/15/22 08/16/22 08/16/22 23:35 00:59 00:59 Estimat Average Glucose Hemoglobin A1c % Magnesium Triglycerides Cholesterol LDL Cholesterol, Calc HDL Cholesterol Vitamin B12 Folate TSH Free T4 Urine Color Urine Appearance Urine pH Ur Specific [place] Urine Protein Urine Glucose (UA) Urine Ketones Urine Blood Urine Nitrite Ur Leukocyte Esterase Urine RBC Urine WBC Ur Squamous Epith Cells Urine Bacteria Hyaline Casts Urine Opiates Screen Not Detected Urine Fentanyl Screen POSITIVE H SEE NOTE Urine Fentanyl NEGATIVE Ur Norfentanyl Quant NEGATIVE Ur Barbiturates Screen Not Detected Ur Phencyclidine Scrn Not Detected Ur Amphetamines Screen Not Detected U Benzodiazepines Scrn Not Detected Urine Cocaine Screen Not Detected U Marijuana (THC) Screen POSITIVE H COVID-19 (RAFAL) Positive A COVID-19 Clin Com See Note 08/18/22 08/18/22 08/18/22 08:38 08:38 08:38 Estimat Average Glucose 85 Hemoglobin A1c % 4.6 Magnesium 1.8 Triglycerides 88 Cholesterol 144 LDL Cholesterol, Calc 91 HDL Cholesterol 36 Vitamin B12 211 Folate 4.3 TSH 3.48 Free T4 0.95 Urine Color Urine Appearance Urine pH Ur Specific [place] Urine Protein Urine Glucose (UA) Urine Ketones Urine Blood Urine Nitrite Ur Leukocyte Esterase Urine RBC Urine WBC Ur Squamous Epith Cells Urine Bacteria Hyaline Casts Urine Opiates Screen Urine Fentanyl Screen Urine Fentanyl Ur Norfentanyl Quant Ur Barbiturates Screen Ur Phencyclidine Scrn Ur Amphetamines Screen U Benzodiazepines Scrn Urine Cocaine Screen U Marijuana (THC) Screen COVID-19 (RAFAL) COVID-19 Clin Com 08/25/22 08/26/22 Unknown 06:20 Estimat Average Glucose Hemoglobin A1c % Magnesium Triglycerides Cholesterol LDL Cholesterol, Calc HDL Cholesterol Vitamin B12 Folate TSH Free T4 Urine Color Yellow Urine Appearance Clear Urine pH 7.5 Ur Specific [place] <= 1.005 Urine Protein Negative Urine Glucose (UA) Negative Urine Ketones Negative Urine Blood Trace H Urine Nitrite Negative Ur Leukocyte Esterase Negative Urine RBC 0-2 Urine WBC 0-5 Ur Squamous Epith Cells 3-5 Urine Bacteria None Seen Hyaline Casts 0-2 Urine Opiates Screen Urine Fentanyl Screen Urine Fentanyl Ur Norfentanyl Quant Ur Barbiturates Screen Ur Phencyclidine Scrn Ur Amphetamines Screen U Benzodiazepines Scrn Urine Cocaine Screen U Marijuana (THC) Screen COVID-19 (RAFAL) Negative COVID-19 Clin Com See Note Airway Mallampati Class: II TM Dist: >3cm Neck ROM: Full Loose/Missing/Broken Teeth: Yes (Poor dentiton, multiple cracked and missing globally) Heart: [id number] Lungs: cta b/l Assessment and Plan Final Anesthetic Review Family History of Problems with Anesthesia: No History of Problems with Anesthesia: No NPO: Yes ASA Class: III Final Preanesthetic Review: No Changes in Pt Med Stat, Meds/Allgs Chart Reviewed, Consent Obtained/Reviewed and Anes Risks/Benef Reviewed Patient Risk: Intermediate Procedure Risk: Intermediate Assessment/Block/Sedation in SS: Assess/Block/Sedation-SS Anesthetic Plan Anesthetic Plan: GA and Agree w/ Assess. and Plan Disposition: Standard PACU
[2022-09-01] MEDS: Lactated Ringers 1,000 ML 50 ML IVCONT (07:26)
[2022-09-01] MEDS: Ferrous Sulfate 324 MG TABLET.DR PO (09:25)
[2022-09-01] MEDS: Docusate Sodium 100 MG CAPSULE PO (09:25)
[2022-09-01] MEDS: Omeprazole 20 MG CAPSULE.DR PO (09:25)
[2022-09-01] MEDS: Acetaminophen 325 MG TABLET 650 MG PO (09:25)
[2022-09-01] MEDS: DULoxetine HCl 60 MG CAPSULE.DR PO (09:25)
[2022-09-01] MEDS: Benztropine Mesylate 0.5 MG TABLET PO (09:25)
[2022-09-01] MEDS: cloNIDine HCL 0.1 MG TABLET PO ×2 (09:54→14:49)
--- NOTE | 2022-09-01 13:22 | P.DS_ITS ---
DS: Providers Provider Date of Service: 09/01/22 Date of admission: 08/17/22 13:54 Date of discharge: 09/01/22 Primary care physician: Unknown Physician Attending physician on admission: Maurizio Hernández Attending physician on discharge: Maurizio Hernández DS: Diagnosis Discharge Diagnosis (1) Chronic post-traumatic stress disorder (PTSD): Status: Chronic (2) Borderline personality disorder: Status: Chronic DS: Medications Discharge Medications Home Medications: Home Medications Medication Instructions Recorded Confirmed acetaminophen 500 mg tablet 1 tab PO Q6H PRN pain 08/14/22 08/15/22 albuterol sulfate 90 mcg/actuation 2 puff inhalation BID PRN Wheezing 08/14/22 08/15/22 aerosol inhaler (ProAir HFA) ammonium lactate 12 % topical cream 1 appl topical BID PRN Dry Skin 08/14/22 08/15/22 bacitracin 500 unit/gram topical 1 appl topical BID PRN Wound 08/14/22 08/15/22 ointment Healing benzonatate 100 mg capsule 1 cap PO TID PRN cough 08/14/22 08/15/22 benztropine 0.5 mg tablet 1 tab PO BID 08/14/22 08/15/22 diphenhydramine HCl 50 mg capsule 2 cap PO BEDTIME 08/14/22 08/15/22 (Banophen) duloxetine 60 mg capsule,delayed 1 cap PO QAM 08/14/22 08/15/22 release ferrous sulfate 325 mg (65 mg 1 tab PO QAM 08/14/22 08/15/22 iron) tablet,delayed release fluticasone propionate 230 2 puff inhalation BID 08/14/22 08/15/22 mcg-salmeterol 21 mcg/actuation HFA inhaler (Advair HFA) haloperidol 5 mg tablet 1 tab PO TID PRN Agitation 08/14/22 08/15/22 haloperidol decanoate 100 mg/mL 0.75 ml IM QWEEK 08/14/22 08/15/22 intramuscular solution hydroxyzine pamoate 50 mg capsule 1 cap PO BID PRN Anxiety 08/14/22 08/15/22 lorazepam 1 mg tablet 1 tab PO TID PRN anxiety 08/14/22 08/15/22 nicotine (polacrilex) 2 mg gum 2 mg buccal Q2H PRN Smoking 08/14/22 08/15/22 Cessation omeprazole 20 mg tablet,delayed 20 mg PO DAILY 08/14/22 08/15/22 release ondansetron HCl 4 mg tablet 1 tab PO Q6H PRN nausea/vomiting 08/14/22 08/15/22 prazosin 1 mg capsule 1 cap PO BEDTIME 08/14/22 08/15/22 prazosin 5 mg capsule 3 cap PO BEDTIME 08/14/22 08/15/22 zolpidem 10 mg tablet 1 tab PO BEDTIME 08/14/22 08/15/22 Previous Rx's Medication Instructions Recorded clonidine HCl 0.1 mg tablet 0.1 mg PO TID 30 days #90 tabs 09/01/22 docusate sodium 100 mg capsule 100 mg PO BID 30 days #60 caps 09/01/22 lithium carbonate 300 mg 300 mg PO DAILY@1600 30 days #30 09/01/22 tablet,extended release tabs trazodone 50 mg tablet 150 mg PO BEDTIME 30 days #90 tabs 09/01/22 Mental Status Exam Mental Status Exam Narrative: Pt is alert and oriented; behavior vacillates, sometimes calm, reasonable and engaged to dysregulated and intermittently self-harming (this is baseline behavior); dressed in casual attire with unkempt hair but adequate hygiene; numerous of scars up and down bilateral forearms from hx of superficial cutting; mood is described as better and affect congruent , brighter; eye contact appropriate; Speech is normal volume, rate, prosody when calm; no psychomotor retardation present; thought process is goal directed; Thought content on dealing with struggles, coping with feelings; how to cope with tense situation at shelter w/ antagonistic peer; intermittent self-harm; otherwise pertinent to relevant topics and without any delusional content, paranoid ideations or grandiosity; intermittent SI (which is chronic) but none currently; no HI. No AH; Patients insight and judgment are impaired but adequate and at baseline Data Data Completed and Pending Completed studies during hospitalization [Text1]: 08/25/22 08/26/22 Unknown 06:20 Urine Color Yellow Urine Appearance Clear Urine pH 7.5 Ur Specific [place] <= 1.005 Urine Protein Negative Urine Glucose (UA) Negative Urine Ketones Negative Urine Blood Trace H Urine Nitrite Negative Ur Leukocyte Esterase Negative Urine RBC 0-2 Urine WBC 0-5 Ur Squamous Epith Cells 3-5 Urine Bacteria None Seen Hyaline Casts 0-2 COVID-19 (RAFAL) Negative COVID-19 Clin Com See Note Imaging Diagnostic Imaging Impressions Head CT 08/25/22 15:44 IMPRESSION: No acute intracranial abnormality. DS: Summary Hospital Course Hospital Course: Pt is a 37 y.o. female, ? PTSD with extensive trauma history, and BPD, (carries a dx of schizoaffective DO), depressive type,chronic SI, chronic self-harming behaviors and multiple inpatient admissions who re-presents a few days after discharging from the ED for continued ?superficially cutting and increased SI in the face of ongoing psychosocial stressor from peer at shelter. -numerous admissions with similar presentations Hospital course: 08.19.22 last night self-harming.? Patient says she is going to continue trying not to do so and if she can remain with good behavioral and impulse control for 3 days, she hopes she can return to shelter.? Patient is trying to figure out how she will be able to coexist with antagonistic peer at shelter.? Intermittent SI which is chronic.; intermittent self-harming thoughts/urges but patient says she is trying to resist. 08/20/22 pt vacillates between calm and dysregulated; still self-harming (not far from baseline) 08/21/2022 patient a little more calm today and hoping for discharge early next week.? Discussed ECT and how it helps her stay safe and without any self-harming behaviors for several months afterwards; shelter staff corroborates 08/22 banged head last night but patient is trying hard to remain safe.? Wants ECT.? Moving medications to afternoon to help with afternoon dysregulation which is her pattern 08/23 patient remains with desire to self-harm but is trying hard not to and has not Banged her head, though she did superficially cut her arm 08/24 working to remain safe, no self-harm today so far; wants ECT.? Case discussed with Dr. Silva.? Patient asked for trial of Adderall or Ritalin to see if it could help with impulse control 08/25 remains w/ urges, but trying not to self harm; no head banging;? AH present 08/27 patient reports very tempted to self-harm however she has continued to keep herself safe; dealing with some upsetting family news. Discussed case with team and although patient has been upset she has a particular sitter, team agrees that patient's behavior is manipulative and that it is best for her to practice being in self-control even when not getting her way. Of note, sitter is doing a good job and done nothing inappropriate. 08/29 patient has overall kept herself in increased safe behavior over the past week. Her mood and behavioral ability is part of her baseline; further hospitalization or medication management will not change this. Perhaps ECT can continue to be effective as she and outpatient team reports that has been in the past. Will continue with ECT treatment however will likely discharge next week and patient can continue ECT as an outpatient. As mentioned she is at her baseline which is effectively managed in the community; she is returning to supportive environment with staff who know her well. 08/30 patient remains at baseline; plan is for ECT on 08/31 and then likely discharge the following day; Discussed case with nursing; met with patient; reviewed vitals and WNL 08/31 patient at baseline; ECT helping. She will get ECT on 09/01 and then discharge home. She will continue ECT as an outpatient. Team agrees that patient is at her baseline which, in the community remains with intermittently self harm, behaviors of which her shelter staff have navigating for years and during which patient remains in the community.? Team discussed patient's discharge with shelter who also agreed that she is likely at her baseline and okay for discharge.? She denies any SI or HI and feels stable and ready to go home; patient is future oriented. While she will almost certainly continue to struggle with intermittent urges and behaviors of self- harm, staying in the hospital longer will not resolve this; rather this is a long-term, chronic issue that continues to require exterminator termite term outpt therapy, of which she is engaged.? Patient's request for discharge honored. Hx of failed med trials (not complete) Seroquel, risperdal, abilify, geodon, prozac, remeron, effexor, wellbutrin Time spent discussing smoking cessation with patient: 3 to 10 minutes Status at Discharge Functional status at discharge: independent ambulation Overall status at discharge: patient is not back to baseline Time Spent with Patient Time attestation: Total time managing care of this patient today ____ minutes. Time spent: Less than 30 minutes Discharge Plan Discharge Anticipated Discharge Date/Time: 09/01/22 14:30 Patient Disposition: Home, Self-Care Discharge Diagnosis: PTSD, chronic with recent exacerbation Referrals: ECT: [facility] [place] PACU [Other] - 09/04/22 8:00 am (Enter through the Main Entrance, go to the PACU ) Therapist: Arleen Dumont ([facility]) [Other] - 09/11/22 8:30 am (Telehealth ) Psychiatrist: Dr. Lovelace ([facility]) [Other] - 09/14/22 11:00 am (Telehealth ) Carroll Gaviria MD [Physician] - 1 Week Discharge Medications: New clonidine HCl 0.1 mg Tablet 0.1 mg PO TID 30 Days Qty: 90 0RF Protocol: Hold for SBP< HOLD for SBP < : 90 trazodone 50 mg Tablet 150 mg PO BEDTIME 30 Days Qty: 90 0RF lithium carbonate 300 mg Tablet Extended Release 300 mg PO DAILY@1600 30 Days Qty: 30 0RF Rx Instructions: HOLD NIGHT BEFORE ECT docusate sodium 100 mg Capsule 100 mg PO BID 30 Days Qty: 60 0RF Rx Instructions: HOLD FOR LOOSE STOOL haloperidol decanoate 50 mg/mL Solution 75 mg IM Q28D Qty: 0 0RF Continued benztropine 0.5 mg tablet 1 tab PO BID haloperidol 5 mg tablet 1 tab PO TID PRN (Reason: Agitation) diphenhydramine HCl [Banophen] 50 mg capsule 2 cap PO BEDTIME prazosin 1 mg capsule 1 cap PO BEDTIME hydroxyzine pamoate 50 mg capsule 1 cap PO BID PRN (Reason: Anxiety) zolpidem 10 mg tablet 1 tab PO BEDTIME ferrous sulfate 325 mg (65 mg iron) tablet,delayed release (DR/EC) 1 tab PO QAM duloxetine 60 mg capsule,delayed release(DR/EC) 1 cap PO QAM ondansetron HCl 4 mg tablet 1 tab PO Q6H PRN (Reason: nausea/vomiting) acetaminophen 500 mg tablet 1 tab PO Q6H PRN (Reason: pain) prazosin 5 mg capsule 3 cap PO BEDTIME benzonatate 100 mg capsule 1 cap PO TID PRN (Reason: cough) lorazepam 1 mg tablet 1 tab PO TID PRN (Reason: anxiety) albuterol sulfate [ProAir HFA] 90 mcg/actuation HFA aerosol inhaler 2 puff inhalation BID PRN (Reason: Wheezing) Advair HFA 230-21 mcg/actuation HFA aerosol inhaler 2 puff inhalation BID nicotine (polacrilex) 2 mg Gum 2 mg BUCCAL Q2H PRN (Reason: Smoking Cessation) omeprazole 20 mg Tablet,Delayed Release (Dr/Ec) 20 mg PO DAILY Discontinued lithium carbonate 300 mg tablet 1 tab PO BID clonidine HCl 0.1 mg tablet 1 tab PO BID PRN (Reason: anxiety) trazodone 50 mg tablet 2 tab PO BEDTIME PRN (Reason: insomnia) haloperidol decanoate 100 mg/mL solution 0.75 ml IM QWEEK Discharge Orders: Discharge Order (Routine); Ordered 09/01/22 Ordered By: Maurizio Hernández Diet: Regular diet Activity on Discharge: As tolerated Stand Alone Forms: Patient Portal Discharge page, Community Support Care Plan Goals: ECT on 09/04/22 at [facility]. NPO after midnight just prior to ECT Maintain mood and safe behaviors Take medications as prescribed Practice coping skills Continue with outpatient providers and reach out to them as needed Health Concerns: Mood stability and behaviors GERD Plan of Treatment: Follow up with your PCP, psychiatric provider and other outpatient providers regarding above concerns Take medications as prescribed Assessment: Risk assessment at time of discharge:? Patient was interviewed prior to discharge and found to be fully oriented and without any SI or HI. Patient has insight and demonstrates good judgment in terms of wanting to pursue treatment. Patient has chronic struggles with self-harm; currently she is not in imminent risk of harm to self or others and has a safety plan that includes presenting to the closest ER or calling 911 if feeling unsafe.? Patient has been observed closely by nursing and unit staff throughout admission; patient has not engaged in any behaviors that suggest dangerousness to self or others and has demonstrated appropriate behaviors and impulse control Discharge Date/Time: 09/01/22 14:54
[2022-09-01] MEDS: Lithium Carbonate ER 300 MG TABLET.ER PO (14:49)
== END 2022-09-01 14:54 | disposition home or self-care (01) | DRG 752 ==
LOC: HO.ED 08-16 00:54 → HO.PM5 08-17 14:02
PROVIDERS: Clinical Nurse Specialist Psychiatric/Mental Health, Adult; Physician Assistant; Psychiatry & Neurology Psychiatry; Admitting Provider Psychiatry & Neurology Psychiatry; Emergency Provider Emergency Medicine Emergency Medical Services; Visit Provider Psychiatry & Neurology Psychiatry
PROC: (CPT 90870; principal; 2022-08-26 07:30)
PROC: GZB4ZZZ Other Electroconvulsive Therapy (ICD-10-PCS; CPT 90870; principal; 2022-08-28 07:30)
DX: F60.3 Borderline personality disorder (principal); U07.1 COVID-19; R45.851 Suicidal ideations; F43.12 Post-traumatic stress disorder, chronic; F17.210 Nicotine dependence, cigarettes, uncomplicated; J44.9 Chronic obstructive pulmonary disease, unspecified; Z71.6 Tobacco abuse counseling; K21.9 Gastro-esophageal reflux disease without esophagitis; Z91.52 Personal history of nonsuicidal self-harm; S51.812A Laceration without foreign body of left forearm, initial encounter; S51.811A Laceration without foreign body of right forearm, initial encounter; E66.01 Morbid (severe) obesity due to excess calories; Z68.41 Body mass index [BMI] 40.0-44.9, adult; S21.012A Laceration without foreign body of left breast, initial encounter; X78.1XXA Intentional self-harm by knife, initial encounter; Z78.1 Physical restraint status; Z88.8 Allergy status to other drugs, medicaments and biological substances; Z79.899 Other long term (current) drug therapy
CPT/HCPCS: 36415; 70450; 80061; 80307; 80354; 81001; 82607; 82746; 83036; 83735; 84439; 84443; 87635; 90870; 93005; 96372; 99285; J0330; J1642; J1885; J2060; J2405; J3486; S9485

== ENCOUNTER 2022-09-03 01:35 | Emergency (ER) | payer OTHER, SELFPAY ==
[2022-09-03 01:43] VITALS: BP 123/87; PULSE 86; RESP 18; TEMP 37; O2SAT 96; BMI 41.0
--- NOTE | 2022-09-03 02:19 | ED_ITS ---
HPI - Psych General Chief Complaint: Psychiatric Symptoms Stated Complaint: anxiety after watching movie, refusing vitals Time Seen by Provider: 09/03/22 01:47 Source: patient Mode of arrival: EMS Limitations: no limitations History of Present Illness HPI Narrative: Patient still schizoaffective disorder bipolar disorder PTSD been here multiple times was watching a movie which triggered her anxiety because it was abusive admit plan to cut herself reports visual and auditory hallucinations patient was just discharged yesterday from 5 Related Data Home Medications Medication Instructions Recorded Confirmed acetaminophen 500 mg tablet 1 tab PO Q6H PRN pain 08/14/22 09/03/22 albuterol sulfate 90 mcg/actuation 2 puff inhalation BID PRN Wheezing 08/14/22 09/03/22 aerosol inhaler (ProAir HFA) benzonatate 100 mg capsule 1 cap PO TID PRN cough 08/14/22 09/03/22 benztropine 0.5 mg tablet 1 tab PO BID 08/14/22 09/03/22 diphenhydramine HCl 50 mg capsule 2 cap PO BEDTIME 08/14/22 09/03/22 (Banophen) duloxetine 60 mg capsule,delayed 1 cap PO QAM 08/14/22 09/03/22 release ferrous sulfate 325 mg (65 mg 1 tab PO QAM 08/14/22 09/03/22 iron) tablet,delayed release fluticasone propionate 230 2 puff inhalation BID 08/14/22 09/03/22 mcg-salmeterol 21 mcg/actuation HFA inhaler (Advair HFA) haloperidol 5 mg tablet 1 tab PO TID PRN Agitation 08/14/22 09/03/22 hydroxyzine pamoate 50 mg capsule 1 cap PO BID PRN Anxiety 08/14/22 09/03/22 lorazepam 1 mg tablet 1 tab PO TID PRN anxiety 08/14/22 09/03/22 nicotine (polacrilex) 2 mg gum 2 mg buccal Q2H PRN Smoking 08/14/22 09/03/22 Cessation omeprazole 20 mg tablet,delayed 20 mg PO DAILY 08/14/22 09/03/22 release ondansetron HCl 4 mg tablet 1 tab PO Q6H PRN nausea/vomiting 08/14/22 09/03/22 prazosin 1 mg capsule 1 cap PO BEDTIME 08/14/22 09/03/22 prazosin 5 mg capsule 3 cap PO BEDTIME 08/14/22 09/03/22 zolpidem 10 mg tablet 1 tab PO BEDTIME 08/14/22 09/03/22 Previous Rx's Medication Instructions Recorded clonidine HCl 0.1 mg tablet 0.1 mg PO TID 30 days #90 tabs 09/01/22 docusate sodium 100 mg capsule 100 mg PO BID 30 days #60 caps 09/01/22 haloperidol decanoate 50 mg/mL 75 mg (1.5 mL) IM Q28D #0 mL 09/01/22 intramuscular solution lithium carbonate 300 mg 300 mg PO DAILY@1600 30 days #30 09/01/22 tablet,extended release tabs trazodone 50 mg tablet 150 mg PO BEDTIME 30 days #90 tabs 09/01/22 Allergies Allergy/AdvReac Type Severity Reaction Status Date / Time carbamazepine [From TEGRETOL] AdvReac Unknown NAUSEA & Verified 09/01/22 08:09 VOMITING Fish Containing Products AdvReac Stomach Verified 09/01/22 08:09 Upset Review of Systems Review of Systems: Yes all other systems are reviewed and are negative PMFSH Past Medical History Medical History Acute post-traumatic stress disorder Adjustment disorder Anxiety Asthma Borderline personality disorder Chronic post-traumatic stress disorder (PTSD) COPD (chronic obstructive pulmonary disease) Depression GERD (gastroesophageal reflux disease) History of electroconvulsive therapy Increased BMI Injury, self-inflicted Intentional self-harm PTSD (post-traumatic stress disorder) Recurrent major depression-severe Schizoaffective disorder Self-harming behavior Suicidal ideation Suicidal ideation Family History Family History Mother Brain cancer Other No family history of cardiac disease Social History Social History Household Members: Other Household Members Other:: residential Housing: Assisted Living Facility Housing Other:: residential Do you presently have visiting nurse or other home services: No Alcohol intake: unknown Patient Tobacco Use Status: Current everyday Tobacco user Tobacco use type: Cigarette Cigarette Packs Per Day: 0.5 Cigarettes Per Day: 10.0 Years Smoked: 17 e-Cigarette/Vaping Use: Never Used Second Hand Smoke Exposure: Yes Substance Use Type: Marijuana Advance Directives: No Advance Directives Information Provided: Yes service: No Sexual orientation: Straight/Heterosexual Physical Exam Vital Signs: Vital Signs: Last Vital Signs Temp 98.6 F 09/03/22 01:43 Pulse 86 09/03/22 01:43 Resp 18 09/03/22 01:43 BP 123/87 09/03/22 01:43 Pulse Ox 96 09/03/22 01:43 O2 Del Method 09/03/22 01:43 BMI result Body Mass Index 41.0 Appearance: Alert. Oriented X3. No acute distress. Eyes: PERRLA, No Nystagmus ENT: Pharynx normal. Oral Mucosa moist Neck: Normal inspection. Neck supple. CVS: Normal heart rate and rhythm. Pulses normal. Respiratory: No respiratory distress. Equal air entry bilateral, no wheezing/rales/rhonchi Abdomen: Soft and nontender. Bowel sounds are present, no mass palpable, no CVA tenderness Skin: Skin warm and dry. Normal skin color. Normal skin turgor. Extremities: No lower extremity edema. No calf tenderness psych; anxious denies any SI at this time no current hallucination or delusions Neuro: Oriented X 3. No motor deficit. No sensory deficit.No cerebellar signs , cranial nerves II-XII intact Medications Administered Discontinued Medications Generic Name Dose Route Start Last Admin Trade Name Freq PRN Reason Stop Dose Admin Haloperidol 5 mg 09/03/22 02:18 09/03/22 02:30 Haloperidol 5 Mg Tablet PO 09/03/22 02:19 5 mg ONCE ONE Administration Lorazepam 2 mg 09/03/22 02:18 09/03/22 02:30 Lorazepam 1 Mg Tablet PO 09/03/22 02:19 2 mg ONCE ONE Administration Medical Decision Making Medical Decision Making MDM Narrative: Will consult care team for SI and hallucinations Lab Data MDM Lab Attestation statement: I reviewed the patient's lab results. Labs: Lab Results 09/03/22 Range/Units 02:15 COVID-19 (RAFAL) Negative (Negative) COVID-19 Clin Com See Note Discharge Plan Discharge Clinical Impression: Suicidal ideation, Schizoaffective disorder, depressive type Patient Disposition: Still a Patient Prescriptions: No Action benztropine 0.5 mg tablet 1 tab PO BID haloperidol 5 mg tablet 1 tab PO TID PRN (Reason: Agitation) diphenhydramine HCl [Banophen] 50 mg capsule 2 cap PO BEDTIME prazosin 1 mg capsule 1 cap PO BEDTIME hydroxyzine pamoate 50 mg capsule 1 cap PO BID PRN (Reason: Anxiety) zolpidem 10 mg tablet 1 tab PO BEDTIME ferrous sulfate 325 mg (65 mg iron) tablet,delayed release (DR/EC) 1 tab PO QAM duloxetine 60 mg capsule,delayed release(DR/EC) 1 cap PO QAM ondansetron HCl 4 mg tablet 1 tab PO Q6H PRN (Reason: nausea/vomiting) acetaminophen 500 mg tablet 1 tab PO Q6H PRN (Reason: pain) prazosin 5 mg capsule 3 cap PO BEDTIME benzonatate 100 mg capsule 1 cap PO TID PRN (Reason: cough) lorazepam 1 mg tablet 1 tab PO TID PRN (Reason: anxiety) albuterol sulfate [ProAir HFA] 90 mcg/actuation HFA aerosol inhaler 2 puff inhalation BID PRN (Reason: Wheezing) Advair HFA 230-21 mcg/actuation HFA aerosol inhaler 2 puff inhalation BID nicotine (polacrilex) 2 mg Gum 2 mg BUCCAL Q2H PRN (Reason: Smoking Cessation) omeprazole 20 mg Tablet,Delayed Release (Dr/Ec) 20 mg PO DAILY clonidine HCl 0.1 mg Tablet 0.1 mg PO TID 30 Days Qty: 90 0RF Protocol: Hold for SBP< HOLD for SBP < : 90 trazodone 50 mg Tablet 150 mg PO BEDTIME 30 Days Qty: 90 0RF lithium carbonate 300 mg Tablet Extended Release 300 mg PO DAILY@1600 30 Days Qty: 30 0RF Rx Instructions: HOLD NIGHT BEFORE ECT docusate sodium 100 mg Capsule 100 mg PO BID 30 Days Qty: 60 0RF Rx Instructions: HOLD FOR LOOSE STOOL haloperidol decanoate 50 mg/mL Solution 75 mg IM Q28D Qty: 0 0RF
[2022-09-03] MEDS: LORazepam 1 MG TABLET 2 MG PO (02:30)
[2022-09-03] MEDS: HaloperidoL 5 MG TABLET PO (02:30)
[2022-09-03 02:39] LABS: COVID-19 Test Negative (Negative); IDNOW Serial# 6674DD1D
--- NOTE | 2022-09-03 05:35 | PC.NURSE ---
Patient is in bed appears sleeping, Haldol 5 mg po and Ativan 2 mg po administered at the time of arrival with + effect, patient is on 1:1 for safety, behavior non concerning at this time, VSS, med rec completed/pending provider's approval, urine sample pending, awaiting care team evaluation, will continue to monitor.
[2022-09-03] MEDS: Acetaminophen 325 MG TABLET 975 MG PO (06:38)
[2022-09-03 08:12] LABS: MANUAL DIFF FLAG NO
[2022-09-03 08:17] LABS: Basophils Percent Auto 0.2 % (0-2); Eosinophils Percent Auto 0.4 % (0-4); Hematocrit 36.1 % (37.0-47.0); Hemoglobin 11.9 g/dl (12.0-16.0); Imm Gran Abs Auto 0.02 X10*3/uL (0.00-0.03); Imm Gran Pct Auto 0.2 % (0.0-0.4); Mean Corpuscular Volume 90.9 fL (80.0-98.0); Mean Platelet Volume 10.7 fL (9.4-12.3); Monocytes Absolute Auto 0.5 X10*3/uL (0.1-1.2); Monocytes Percent Auto 5.8 % (2-11); Neutrophils Absolute Auto 5.9 x10*3/uL (2.0-8.3); Neutrophils Percent Auto 69.4 % (45-73); Platelet Count 230 X10*3/uL (160-400); Red Blood Count 3.97 X10*6/uL (4.20-5.50); Red Cell Distribution Width 12.9 % (11.0-16.0); White Blood Count 8.4 X10*3/uL (4.8-10.8)
[2022-09-03 08:18] LABS: Appearance Urine Clear; Color Urine Yellow; Glucose Urine UA Negative (Negative); Leukocyte Esterase Urine Negative (Negative); Nitrite Urine Negative (Negative); PH 6.5 (5.0-9.0); Specific Gravity - Urine 1.015 (1.005-1.025); Urine Blood Negative (Negative); Urine Ketones Negative (Negative); Urine Protein Negative (Neg-Trace)
[2022-09-03 08:21] VITALS: BP 102/61; PULSE 84; RESP 13; TEMP 36.4; O2SAT 94
[2022-09-03 08:30] LABS: Amphetamine Screen Urine Not Detected (Not Detect); Barbiturates, Urine Not Detected (Not Detect); Benzodiazepines Screen Urine Not Detected (Not Detect); Cannabinoid Screen Urine POSITIVE (Not Detect); Cocaine Screen Urine Not Detected (Not Detect); Fentanyl, urine POSITIVE (Not Detect); Opiate Screen Urine Not Detected (Not Detect); Phencyclidine Screen Urine Not Detected (Not Detect)
[2022-09-03 08:33] LABS: Anion Gap 11 (12-20); Blood Urea Nitrogen 11 mg/dL (9-16); Calcium 8.7 mg/dL (8.4-10.2); Carbon Dioxide 22 mmol/L (22-29); Chloride 109 mmol/L (96-108); Creatinine Clr Calc Pharmacy 108.5; Estimated Glomerular Filt Rate > 60; Glucose Random 101 mg/dL (60-115); Potassium 4.2 mmol/L (3.3-5.1); Sodium 138 mmol/L (135-145)
--- NOTE | 2022-09-03 09:13 | MHC.CARE ---
Call to Louis Zelaya ([facility] Painter Assistant [phone]), he was unaware that patient had come to the ED. Stated she had a good day with one minor verbal incident that she was able to maintain control during. He supports [facility].
[2022-09-03] MEDS: Ferrous Sulfate 324 MG TABLET.DR PO (11:26)
[2022-09-03] MEDS: Benztropine Mesylate 0.5 MG TABLET PO (11:26)
[2022-09-03] MEDS: DULoxetine HCl 60 MG CAPSULE.DR PO (11:26)
[2022-09-03] MEDS: Omeprazole 20 MG CAPSULE.DR PO (11:29)
[2022-09-03] MEDS: cloNIDine HCL 0.1 MG TABLET PO (11:29)
[2022-09-03] MEDS: Docusate Sodium 100 MG CAPSULE PO (11:29)
--- NOTE | 2022-09-03 12:03 | MHC.CARE ---
Patient evaluated by CARE Team, she does not need an inpatient psychiatric admission at this time and will be discharging home. Providers updated and in agreement with plan.
== END 2022-09-03 12:02 | disposition home or self-care (01) ==
PROVIDERS: Internal Medicine; Emergency Provider Emergency Medicine Emergency Medical Services; PCP Pediatrics
DX: F25.1 Schizoaffective disorder, depressive type (principal); R45.851 Suicidal ideations; F41.1 Generalized anxiety disorder; F43.0 Acute stress reaction; Z20.822 Contact with and (suspected) exposure to COVID-19; Z20.828 Contact with and (suspected) exposure to other viral communicable diseases; Z79.899 Other long term (current) drug therapy
CPT/HCPCS: 36415; 80048; 80307; 81003; 85025; 87635; 99285; S9485

== ENCOUNTER 2022-09-04 08:03 | Day surgery (SDC) | payer OTHER, SELFPAY ==
[2022-09-04] VITALS (7 sets, daily range): BP systolic 121–149; BP diastolic 67–93; PULSE 82–97; RESP 14–22; TEMP 36.2–36.8; O2SAT 94–99; BMI 41.0
[2022-09-04 08:33] LABS: COVID-19 Test Negative (Negative); IDNOW Serial# 9DB6401D
--- NOTE | 2022-09-04 08:47 | HO.ANESPROP2 ---
[facility] Active Problems Active Problems: All Active Problems (Updated 09/03/22 @ 06:27 by Isael Norris MD) Injury of ligament of right knee (Acute) Sprain of anterior cruciate ligament of right knee (Acute) Hernia (Chronic) Schizoaffective disorder, depressive type (Chronic) Sprain of left foot (Acute) COVID-19 (Acute) COVID-19 (Acute) Suicidal ideation (Acute) Deliberate self-cutting (Acute) Routine medical exam (Acute) Chronic post-traumatic stress disorder (PTSD) (Chronic) Increased BMI (Acute) GERD (gastroesophageal reflux disease) (Acute) Borderline personality disorder (Chronic) Past Medical History Medical History Acute post-traumatic stress disorder Adjustment disorder Anxiety Asthma Borderline personality disorder Chronic post-traumatic stress disorder (PTSD) COPD (chronic obstructive pulmonary disease) Depression GERD (gastroesophageal reflux disease) History of electroconvulsive therapy Increased BMI Injury, self-inflicted Intentional self-harm PTSD (post-traumatic stress disorder) Recurrent major depression-severe Schizoaffective disorder Self-harming behavior Suicidal ideation Suicidal ideation Family History Family History Mother Brain cancer Other No family history of cardiac disease Family history of problems with anesthesia: No Surgical History History of Problems with Anesthesia: No Social History Social History Household Members: Other Household Members Other:: [facility] Housing: [facility]isted Living Facility Housing Other:: [facility] Do you presently have visiting nurse or other home services: No Alcohol intake: unknown Patient Tobacco Use Status: Current everyday Tobacco user Tobacco use type: Cigarette Cigarette Packs Per Day: 0.5 Cigarettes Per Day: 10.0 Years Smoked: 17 e-Cigarette/Vaping Use: Never Used Second Hand Smoke Exposure: Yes Substance Use Type: Marijuana Advance Directives: No Advance Directives Information Provided: Yes service: No Sexual orientation: Straight/Heterosexual Meds Allergies Allergy/AdvReac Type Severity Reaction Status Date / Time carbamazepine [From TEGRETOL] AdvReac Unknown NAUSEA & Verified 09/01/22 08:09 VOMITING Fish Containing Products AdvReac Stomach Verified 09/01/22 08:09 Upset Home Medications Medication Instructions Recorded Confirmed Last Taken Type acetaminophen 500 mg tablet 1 tab PO Q6H PRN pain 08/14/22 09/03/22 Unknown History albuterol sulfate 90 mcg/actuation 2 puff inhalation BID PRN Wheezing 08/14/22 09/03/22 Unknown History aerosol inhaler (ProAir HFA) benzonatate 100 mg capsule 1 cap PO TID PRN cough 08/14/22 09/03/22 Unknown History benztropine 0.5 mg tablet 1 tab PO BID 08/14/22 09/03/22 Unknown History diphenhydramine HCl 50 mg capsule 2 cap PO BEDTIME 08/14/22 09/03/22 Unknown History (Banophen) duloxetine 60 mg capsule,delayed 1 cap PO QAM 08/14/22 09/03/22 Unknown History release ferrous sulfate 325 mg (65 mg 1 tab PO QAM 08/14/22 09/03/22 Unknown History iron) tablet,delayed release fluticasone propionate 230 2 puff inhalation BID 08/14/22 09/03/22 Unknown History mcg-salmeterol 21 mcg/actuation HFA inhaler (Advair HFA) haloperidol 5 mg tablet 1 tab PO TID PRN Agitation 08/14/22 09/03/22 Unknown History hydroxyzine pamoate 50 mg capsule 1 cap PO BID PRN Anxiety 08/14/22 09/03/22 Unknown History lorazepam 1 mg tablet 1 tab PO TID PRN anxiety 08/14/22 09/03/22 Unknown History nicotine (polacrilex) 2 mg gum 2 mg buccal Q2H PRN Smoking 08/14/22 09/03/22 Unknown History Cessation omeprazole 20 mg tablet,delayed 20 mg PO DAILY 08/14/22 09/03/22 Unknown History release ondansetron HCl 4 mg tablet 1 tab PO Q6H PRN nausea/vomiting 08/14/22 09/03/22 Unknown History prazosin 1 mg capsule 1 cap PO BEDTIME 08/14/22 09/03/22 Unknown History prazosin 5 mg capsule 3 cap PO BEDTIME 08/14/22 09/03/22 Unknown History zolpidem 10 mg tablet 1 tab PO BEDTIME 08/14/22 09/03/22 Unknown History Exam Exam Date and Time: September 04, 2022 0847 Pertinent Lab Results Pertinent Lab Results: Laboratory Tests 09/04/22 08:00 COVID-19 ([facility]AL) Negative COVID-19 Clin Com See Note Airway Mallampati Class: II (Missing teeth) TM Dist: >3cm Neck ROM: Full Heart: rrr Lungs: cta Assessment and Plan Assessment Anesthesia Assessment: Anesthesia Plan Discussed and Chart Reviewed Final Anesthetic Review Family History of Problems with Anesthesia: No History of Problems with Anesthesia: No NPO: Yes ASA Class: III Final Preanesthetic Review: No Changes in Pt Med Stat, Meds/Allgs Chart Reviewed and Consent Obtained/Reviewed Patient Risk: Intermediate Procedure Risk: Intermediate Anesthetic Plan Anesthetic Plan: GA Disposition: Standard PACU
--- NOTE | 2022-09-04 08:49 | HO.ANESPROP2 ---
[facility] Active Problems Active Problems: All Active Problems (Updated 09/03/22 @ 06:27 by Isael Norris MD) Injury of ligament of right knee (Acute) Sprain of anterior cruciate ligament of right knee (Acute) Hernia (Chronic) Schizoaffective disorder, depressive type (Chronic) Sprain of left foot (Acute) COVID-19 (Acute) COVID-19 (Acute) Suicidal ideation (Acute) Deliberate self-cutting (Acute) Routine medical exam (Acute) Chronic post-traumatic stress disorder (PTSD) (Chronic) Increased BMI (Acute) GERD (gastroesophageal reflux disease) (Acute) Borderline personality disorder (Chronic) Past Medical History Medical History Acute post-traumatic stress disorder Adjustment disorder Anxiety Asthma Borderline personality disorder Chronic post-traumatic stress disorder (PTSD) COPD (chronic obstructive pulmonary disease) Depression GERD (gastroesophageal reflux disease) History of electroconvulsive therapy Increased BMI Injury, self-inflicted Intentional self-harm PTSD (post-traumatic stress disorder) Recurrent major depression-severe Schizoaffective disorder Self-harming behavior Suicidal ideation Suicidal ideation Family History Family History Mother Brain cancer Other No family history of cardiac disease Family history of problems with anesthesia: No Surgical History History of Problems with Anesthesia: No Social History Social History Household Members: Other Household Members Other:: senior living Housing: Assisted Living Facility Housing Other:: senior living Do you presently have visiting nurse or other home services: No Alcohol intake: unknown Patient Tobacco Use Status: Current everyday Tobacco user Tobacco use type: Cigarette Cigarette Packs Per Day: 0.5 Cigarettes Per Day: 10.0 Years Smoked: 17 e-Cigarette/Vaping Use: Never Used Second Hand Smoke Exposure: Yes Substance Use Type: Marijuana Advance Directives: No Advance Directives Information Provided: Yes service: No Sexual orientation: Straight/Heterosexual Meds Allergies Allergy/AdvReac Type Severity Reaction Status Date / Time carbamazepine [From TEGRETOL] AdvReac Unknown NAUSEA & Verified 09/01/22 08:09 VOMITING Fish Containing Products AdvReac Stomach Verified 09/01/22 08:09 Upset Active Medications: Current Medications Lactated Ringer's (Lr) 1,000 mls @ 50 mls/hr IVCONT .Q20H SULEIMAN Home Medications Medication Instructions Recorded Confirmed Last Taken Type acetaminophen 500 mg tablet 1 tab PO Q6H PRN pain 08/14/22 09/03/22 Unknown History albuterol sulfate 90 mcg/actuation 2 puff inhalation BID PRN Wheezing 08/14/22 09/03/22 Unknown History aerosol inhaler (ProAir HFA) benzonatate 100 mg capsule 1 cap PO TID PRN cough 08/14/22 09/03/22 Unknown History benztropine 0.5 mg tablet 1 tab PO BID 08/14/22 09/03/22 Unknown History diphenhydramine HCl 50 mg capsule 2 cap PO BEDTIME 08/14/22 09/03/22 Unknown History (Banophen) duloxetine 60 mg capsule,delayed 1 cap PO QAM 08/14/22 09/03/22 Unknown History release ferrous sulfate 325 mg (65 mg 1 tab PO QAM 08/14/22 09/03/22 Unknown History iron) tablet,delayed release fluticasone propionate 230 2 puff inhalation BID 08/14/22 09/03/22 Unknown History mcg-salmeterol 21 mcg/actuation HFA inhaler (Advair HFA) haloperidol 5 mg tablet 1 tab PO TID PRN Agitation 08/14/22 09/03/22 Unknown History hydroxyzine pamoate 50 mg capsule 1 cap PO BID PRN Anxiety 08/14/22 09/03/22 Unknown History lorazepam 1 mg tablet 1 tab PO TID PRN anxiety 08/14/22 09/03/22 Unknown History nicotine (polacrilex) 2 mg gum 2 mg buccal Q2H PRN Smoking 08/14/22 09/03/22 Unknown History Cessation omeprazole 20 mg tablet,delayed 20 mg PO DAILY 08/14/22 09/03/22 Unknown History release ondansetron HCl 4 mg tablet 1 tab PO Q6H PRN nausea/vomiting 08/14/22 09/03/22 Unknown History prazosin 1 mg capsule 1 cap PO BEDTIME 08/14/22 09/03/22 Unknown History prazosin 5 mg capsule 3 cap PO BEDTIME 08/14/22 09/03/22 Unknown History zolpidem 10 mg tablet 1 tab PO BEDTIME 08/14/22 09/03/22 Unknown History Exam Exam Date and Time: September 04, 2022 0849 Pertinent Lab Results Pertinent Lab Results: Laboratory Tests 09/04/22 08:00 COVID-19 (RAFAL) Negative COVID-19 Clin Com See Note Airway Mallampati Class: II (Missing multiple teeth) TM Dist: >3cm Neck ROM: Full Heart: rrr Lungs: cta Assessment and Plan Assessment Anesthesia Assessment: Anesthesia Plan Discussed and Chart Reviewed Final Anesthetic Review Family History of Problems with Anesthesia: No History of Problems with Anesthesia: No NPO: Yes ASA Class: III Final Preanesthetic Review: No Changes in Pt Med Stat, Meds/Allgs Chart Reviewed and Consent Obtained/Reviewed Patient Risk: Intermediate Procedure Risk: Intermediate Anesthetic Plan Anesthetic Plan: GA Disposition: Standard PACU
--- NOTE | 2022-09-04 10:09 | MHC.SHP ---
Pre-Procedural Eval Section A Date of Service: 09/04/22 The patient is an INPATIENT: No Changes since office visit: Yes Patient answered all questions; No Cold of Flu in the past 2 weeks, No New Medical Problems and No Changes in Medication The History & Physical has been completed within 30 days and I have reviewed it.: Yes Section B Chief Complaint: Major depressive disorder, recurrent, Allergies: Allergies Allergy/AdvReac Type Severity Reaction Status Date / Time carbamazepine [From TEGRETOL] AdvReac Unknown NAUSEA & Verified 09/01/22 08:09 VOMITING Fish Containing Products AdvReac Stomach Verified 09/01/22 08:09 Upset Plan I have reviewed the history and physical and performed a pertinent physical examination on my patient. No changes have occurred unless specified. Time Spent With Patient Time: Total time managing care of this patient today ____ minutes.
--- NOTE | 2022-09-04 10:11 | HO.ECTPROC ---
ECT Procedure Note Diagnosis/Treatment Date of Service: 09/04/22 Diagnosis: Major Depressive Disorder and Other (PTSD) Previous ECT Date: 08/28/22 Current Treatment Number: 4 Treatment: Series Interval Clinical Notes: The patient states she is generally been doing well feels that ECT has been helpful much less in the way of self-harm no active suicidal thoughts REMAINS SOMEWHAT DOWN POOR APPETITE Time: Total time managing care of this patient today ____ minutes. ECT Settings Device: THYMATRON DGx Electrode Placement: Bitemporal Program/Pulse Width: 0.50 Energy Percent: 100 Seizure Duration By EEG (in seconds): 23 Medications Administration General Anesthetic: Etomidate (16) Muscle Relaxant: Succinylcholine (100) Ancillary Medications Analgesics: Torodol - Pre ECT Anti-emetics: Zofran - Pre ECT Miscillaneous Medications: Propofol Airway Management Airway Management: Bag Mask Ventilation Treatment Recommendations Notes: CONTINUE TREATMENT SERIES SEE ETOMIDATE COULD BE LOWERED 14 MG Pt Tolerated Procedure w/o Issue: Yes
== END 2022-09-04 12:02 | disposition home or self-care (01) ==
PROVIDERS: Visit Provider Psychiatry & Neurology Psychiatry
PROC: (CPT 90870; principal; 2022-09-04 10:00)
DX: F33.2 Major depressive disorder, recurrent severe without psychotic features (principal); F25.9 Schizoaffective disorder, unspecified; F43.12 Post-traumatic stress disorder, chronic; F60.3 Borderline personality disorder; R63.8 Other symptoms and signs concerning food and fluid intake; R45.851 Suicidal ideations; Z79.51 Long term (current) use of inhaled steroids; Z79.899 Other long term (current) drug therapy; Z88.8 Allergy status to other drugs, medicaments and biological substances; F17.210 Nicotine dependence, cigarettes, uncomplicated; F12.90 Cannabis use, unspecified, uncomplicated; Z20.822 Contact with and (suspected) exposure to COVID-19
CPT/HCPCS: 87635; 90870; J0330; J1642; J1885; J2405

== ENCOUNTER 2022-09-07 05:49 | Day surgery (SDC) | payer OTHER, SELFPAY ==
[2022-09-07] VITALS (8 sets, daily range): BP systolic 106–128; BP diastolic 47–76; PULSE 76–92; RESP 16–22; TEMP 36.6–36.9; O2SAT 94–97; BMI 41.0
[2022-09-07 07:03] LABS: UPreg QC Valid YES; Urine Pregnancy NEGATIVE (NEGATIVE)
--- NOTE | 2022-09-07 07:14 | MHC.SHP ---
Pre-Procedural Eval Section A Date of Service: 09/07/22 The patient is an INPATIENT: No Changes since office visit: No Cold of Flu in the past 2 weeks, No New Medical Problems, No Changes in Medication and No Patient answered all questions The History & Physical has been completed within 30 days and I have reviewed it.: Yes Section B Chief Complaint: Major depressive disorder, recurrent, severe with Allergies: Allergies Allergy/AdvReac Type Severity Reaction Status Date / Time carbamazepine [From TEGRETOL] AdvReac Unknown NAUSEA & Verified 09/01/22 08:09 VOMITING Fish Containing Products AdvReac Stomach Verified 09/01/22 08:09 Upset Plan I have reviewed the history and physical and performed a pertinent physical examination on my patient. No changes have occurred unless specified. Time Spent With Patient Time: Total time managing care of this patient today ____ minutes.
--- NOTE | 2022-09-07 07:25 | P.CONAN_ITS ---
HPI - Anesthesia Eval Consult details Narrative: Major depression, schizoaffective disorder PMFSH Active Problems Active Problems: All Active Problems (Updated 09/03/22 @ 06:27 by Isael Norris MD) Injury of ligament of right knee (Acute) Sprain of anterior cruciate ligament of right knee (Acute) Hernia (Chronic) Schizoaffective disorder, depressive type (Chronic) Sprain of left foot (Acute) COVID-19 (Acute) COVID-19 (Acute) Suicidal ideation (Acute) Deliberate self-cutting (Acute) Routine medical exam (Acute) Chronic post-traumatic stress disorder (PTSD) (Chronic) Increased BMI (Acute) GERD (gastroesophageal reflux disease) (Acute) Borderline personality disorder (Chronic) Past Medical History Medical History Acute post-traumatic stress disorder Adjustment disorder Anxiety Asthma Borderline personality disorder Chronic post-traumatic stress disorder (PTSD) COPD (chronic obstructive pulmonary disease) Depression GERD (gastroesophageal reflux disease) History of electroconvulsive therapy Increased BMI Injury, self-inflicted Intentional self-harm PTSD (post-traumatic stress disorder) Recurrent major depression-severe Schizoaffective disorder Self-harming behavior Suicidal ideation Suicidal ideation Family History Family History Mother Brain cancer Other No family history of cardiac disease Family history of problems with anesthesia: No Surgical History History of Problems with Anesthesia: No Social History Social History Household Members: Other Household Members Other:: intermediate Housing: Assisted Living Facility Housing Other:: intermediate Do you presently have visiting nurse or other home services: No Alcohol intake: unknown Patient Tobacco Use Status: Current everyday Tobacco user Tobacco use type: Cigarette Cigarette Packs Per Day: 0.5 Cigarettes Per Day: 10.0 Years Smoked: 17 e-Cigarette/Vaping Use: Never Used Second Hand Smoke Exposure: Yes Substance Use Type: Marijuana Advance Directives: No Advance Directives Information Provided: Yes service: No Sexual orientation: Straight/Heterosexual Meds Allergies Allergy/AdvReac Type Severity Reaction Status Date / Time carbamazepine [From TEGRETOL] AdvReac Unknown NAUSEA & Verified 09/01/22 08:09 VOMITING Fish Containing Products AdvReac Stomach Verified 09/01/22 08:09 Upset Home Medications Medication Instructions Recorded Confirmed Last Taken Type acetaminophen 500 mg tablet 1 tab PO Q6H PRN pain 08/14/22 09/03/22 Unknown History albuterol sulfate 90 mcg/actuation 2 puff inhalation BID PRN Wheezing 08/14/22 09/03/22 Unknown History aerosol inhaler (ProAir HFA) benzonatate 100 mg capsule 1 cap PO TID PRN cough 08/14/22 09/03/22 Unknown History benztropine 0.5 mg tablet 1 tab PO BID 08/14/22 09/03/22 Unknown History diphenhydramine HCl 50 mg capsule 2 cap PO BEDTIME 08/14/22 09/03/22 Unknown History (Banophen) duloxetine 60 mg capsule,delayed 1 cap PO QAM 08/14/22 09/03/22 Unknown History release ferrous sulfate 325 mg (65 mg 1 tab PO QAM 08/14/22 09/03/22 Unknown History iron) tablet,delayed release fluticasone propionate 230 2 puff inhalation BID 08/14/22 09/03/22 Unknown History mcg-salmeterol 21 mcg/actuation HFA inhaler (Advair HFA) haloperidol 5 mg tablet 1 tab PO TID PRN Agitation 08/14/22 09/03/22 Unknown History hydroxyzine pamoate 50 mg capsule 1 cap PO BID PRN Anxiety 08/14/22 09/03/22 Unknown History lorazepam 1 mg tablet 1 tab PO TID PRN anxiety 08/14/22 09/03/22 Unknown History nicotine (polacrilex) 2 mg gum 2 mg buccal Q2H PRN Smoking 08/14/22 09/03/22 Unknown History Cessation omeprazole 20 mg tablet,delayed 20 mg PO DAILY 08/14/22 09/03/22 Unknown History release ondansetron HCl 4 mg tablet 1 tab PO Q6H PRN nausea/vomiting 08/14/22 09/03/22 Unknown History prazosin 1 mg capsule 1 cap PO BEDTIME 08/14/22 09/03/22 Unknown History prazosin 5 mg capsule 3 cap PO BEDTIME 08/14/22 09/03/22 Unknown History zolpidem 10 mg tablet 1 tab PO BEDTIME 08/14/22 09/03/22 Unknown History Exam Exam Date and Time: September 07, 2022724 Height,Weight and Vital Signs: Height 4 ft 11 in Weight 92.079 kg Last Vital Signs Temp 97.8 F 09/07/22 06:39 Pulse 76 09/07/22 06:39 Resp 16 09/07/22 06:39 BP 117/72 09/07/22 06:39 Pulse Ox 97 09/07/22 06:39 O2 Del Method 09/07/22 06:39 Pertinent Lab Results Pertinent Lab Results: Laboratory Tests 09/07/22 06:22 Urine Test NEGATIVE Airway Mallampati Class: II TM Dist: >3cm Loose/Missing/Broken Teeth: Yes (Poor dentition, multiple missing upoer and lower globally) Heart: rrr +[id number] Lungs: cta b/l Assessment and Plan Assessment Anesthesia Assessment: Anesthesia Plan Discussed and Chart Reviewed Final Anesthetic Review Family History of Problems with Anesthesia: No History of Problems with Anesthesia: No NPO: Yes ASA Class: III Final Preanesthetic Review: No Changes in Pt Med Stat, Meds/Allgs Chart Reviewed, Consent Obtained/Reviewed and Anes Risks/Benef Reviewed Patient Risk: Intermediate Procedure Risk: Intermediate Assessment/Block/Sedation in SS: Assess/Block/Sedation-SS Anesthetic Plan Anesthetic Plan: GA and Agree w/ Assess. and Plan Disposition: Standard PACU
[2022-09-07 07:26] LABS: COVID-19 Test Negative (Negative); IDNOW Serial# 16C4AD1C
--- NOTE | 2022-09-07 07:40 | HO.ECTPROC ---
ECT Procedure Note Diagnosis/Treatment Date of Service: 09/07/22 Diagnosis: Schizoaffective Disorder Previous ECT Date: 09/04/22 Current Treatment Number: 5 Treatment: Series Interval Clinical Notes: The patient reports that she is still feeling dysphoiric but no self-harming thoughts. No side effects with previous ECT. Time: Total time managing care of this patient today __30__ minutes. ECT Settings Device: THYMATRON DGx Electrode Placement: Bitemporal Program/Pulse Width: 0.50 Energy Percent: 100 Seizure Duration By EEG (in seconds): 17 By Motor Observation (in seconds): 22 Medications Administration General Anesthetic: Etomidate (16) Muscle Relaxant: Succinylcholine (100) Ancillary Medications Analgesics: Torodol - Pre ECT Anti-emetics: Zofran - Pre ECT Miscillaneous Medications: Propofol Airway Management Airway Management: Bag Mask Ventilation Treatment Recommendations No Changes Recommended: No change Pt Tolerated Procedure w/o Issue: Yes
[2022-09-07] MEDS: Heparin Sodium,Porcine Flush 500 UNIT/5 ML SYRINGE IVFLUSH (08:54)
== END 2022-09-07 10:01 | disposition home or self-care (01) ==
PROVIDERS: PCP Pediatrics; Visit Provider Psychiatry & Neurology Psychiatry
PROC: (CPT 90870; principal; 2022-09-07 07:00)
DX: F25.1 Schizoaffective disorder, depressive type (principal); F43.12 Post-traumatic stress disorder, chronic; F60.3 Borderline personality disorder; J44.9 Chronic obstructive pulmonary disease, unspecified; Z79.51 Long term (current) use of inhaled steroids; Z79.899 Other long term (current) drug therapy; Z88.8 Allergy status to other drugs, medicaments and biological substances; Z86.16 Personal history of COVID-19; Z91.51 Personal history of suicidal behavior; F17.210 Nicotine dependence, cigarettes, uncomplicated; Z20.822 Contact with and (suspected) exposure to COVID-19
CPT/HCPCS: 81025; 87635; 90870; J0330; J1642; J1885; J2405

== ENCOUNTER 2022-09-11 05:52 | Day surgery (SDC) | payer OTHER, SELFPAY ==
[2022-09-11] VITALS (8 sets, daily range): BP systolic 105–127; BP diastolic 63–92; PULSE 79–90; RESP 15–23; TEMP 36.4–37.4; O2SAT 95–99; BMI 41.0
[2022-09-11 06:36] LABS: COVID-19 Test Negative (Negative); IDNOW Serial# BCCEAD1C
--- NOTE | 2022-09-11 07:14 | MHC.SHP ---
Pre-Procedural Eval Section A Date of Service: 09/11/22 The patient is an INPATIENT: No Changes since office visit: No Cold of Flu in the past 2 weeks, No New Medical Problems, No Changes in Medication and No Patient answered all questions The History & Physical has been completed within 30 days and I have reviewed it.: Yes Section B Chief Complaint: depression Allergies: Allergies Allergy/AdvReac Type Severity Reaction Status Date / Time carbamazepine [From TEGRETOL] AdvReac Unknown NAUSEA & Verified 09/01/22 08:09 VOMITING Fish Containing Products AdvReac Stomach Verified 09/01/22 08:09 Upset Plan I have reviewed the history and physical and performed a pertinent physical examination on my patient. No changes have occurred unless specified. Time Spent With Patient Time: Total time managing care of this patient today ____ minutes.
--- NOTE | 2022-09-11 07:14 | HO.ECTPROC ---
ECT Procedure Note Diagnosis/Treatment Date of Service: 09/11/22 Diagnosis: Schizoaffective Disorder Previous ECT Date: 09/04/22 Current Treatment Number: 6 Treatment: Series Interval Clinical Notes: The patient doesn't notice an improvement of her mood but the staff of her senior care has noticed that she is better, no side effects with the previous ECT Time: Total time managing care of this patient today __30__ minutes. ECT Settings Device: THYMATRON DGx Electrode Placement: Bitemporal Program/Pulse Width: 0.50 Energy Percent: 100 Seizure Duration By EEG (in seconds): 23 Medications Administration General Anesthetic: Etomidate (16) Muscle Relaxant: Succinylcholine (100) Ancillary Medications Analgesics: Torodol - Pre ECT Anti-emetics: Zofran - Pre ECT Airway Management Airway Management: Bag Mask Ventilation Treatment Recommendations No Changes Recommended: No change Pt Tolerated Procedure w/o Issue: Yes
--- NOTE | 2022-09-11 11:57 | P.CONAN_ITS ---
HPI - Anesthesia Eval Consult details Narrative: 37 yo female patient for ECT PMFSH Active Problems Active Problems: All Active Problems (Updated 09/09/22 @ 00:02 by Adiel Sevilla) Injury of ligament of right knee (Acute) Sprain of anterior cruciate ligament of right knee (Acute) Hernia (Chronic) Schizoaffective disorder, depressive type (Chronic) Sprain of left foot (Acute) COVID-19 (Acute) COVID-19 (Acute) Chronic post-traumatic stress disorder (PTSD) (Chronic) Increased BMI (Acute) GERD (gastroesophageal reflux disease) (Acute) Borderline personality disorder (Chronic) Past Medical History Medical History Acute post-traumatic stress disorder Adjustment disorder Anxiety Asthma Borderline personality disorder Chronic post-traumatic stress disorder (PTSD) COPD (chronic obstructive pulmonary disease) Depression GERD (gastroesophageal reflux disease) History of electroconvulsive therapy Increased BMI Injury, self-inflicted Intentional self-harm PTSD (post-traumatic stress disorder) Recurrent major depression-severe Schizoaffective disorder Self-harming behavior Suicidal ideation Suicidal ideation Family History Family History Mother Brain cancer Other No family history of cardiac disease Family history of problems with anesthesia: No Surgical History History of Problems with Anesthesia: No Social History Social History Household Members: Other Household Members Other:: intermediate Housing: Assisted Living Facility Housing Other:: intermediate Do you presently have visiting nurse or other home services: No Alcohol intake: unknown Patient Tobacco Use Status: Current everyday Tobacco user Tobacco use type: Cigarette Cigarette Packs Per Day: 0.5 Cigarettes Per Day: 10.0 Years Smoked: 17 e-Cigarette/Vaping Use: Never Used Second Hand Smoke Exposure: Yes Substance Use Type: Marijuana service: No Sexual orientation: Straight/Heterosexual Meds Allergies Allergy/AdvReac Type Severity Reaction Status Date / Time carbamazepine [From TEGRETOL] AdvReac Unknown NAUSEA & Verified 09/01/22 08:09 VOMITING Fish Containing Products AdvReac Stomach Verified 09/01/22 08:09 Upset Home Medications Medication Instructions Recorded Confirmed Last Taken Type acetaminophen 500 mg tablet 1 tab PO Q6H PRN pain 08/14/22 09/03/22 Unknown History albuterol sulfate 90 mcg/actuation 2 puff inhalation BID PRN Wheezing 08/14/22 09/03/22 Unknown History aerosol inhaler (ProAir HFA) benzonatate 100 mg capsule 1 cap PO TID PRN cough 08/14/22 09/03/22 Unknown History benztropine 0.5 mg tablet 1 tab PO BID 08/14/22 09/03/22 Unknown History diphenhydramine HCl 50 mg capsule 2 cap PO BEDTIME 08/14/22 09/03/22 Unknown History (Banophen) duloxetine 60 mg capsule,delayed 1 cap PO QAM 08/14/22 09/03/22 Unknown History release ferrous sulfate 325 mg (65 mg 1 tab PO QAM 08/14/22 09/03/22 Unknown History iron) tablet,delayed release fluticasone propionate 230 2 puff inhalation BID 08/14/22 09/03/22 Unknown History mcg-salmeterol 21 mcg/actuation HFA inhaler (Advair HFA) haloperidol 5 mg tablet 1 tab PO TID PRN Agitation 08/14/22 09/03/22 Unknown History hydroxyzine pamoate 50 mg capsule 1 cap PO BID PRN Anxiety 08/14/22 09/03/22 Unknown History lorazepam 1 mg tablet 1 tab PO TID PRN anxiety 08/14/22 09/03/22 Unknown History nicotine (polacrilex) 2 mg gum 2 mg buccal Q2H PRN Smoking 08/14/22 09/03/22 Unknown History Cessation omeprazole 20 mg tablet,delayed 20 mg PO DAILY 08/14/22 09/03/22 Unknown History release ondansetron HCl 4 mg tablet 1 tab PO Q6H PRN nausea/vomiting 08/14/22 09/03/22 Unknown History prazosin 1 mg capsule 1 cap PO BEDTIME 08/14/22 09/03/22 Unknown History prazosin 5 mg capsule 3 cap PO BEDTIME 08/14/22 09/03/22 Unknown History zolpidem 10 mg tablet 1 tab PO BEDTIME 08/14/22 09/03/22 Unknown History Exam Exam Date and Time: September 11, 2022 1157 Height,Weight and Vital Signs: Height 4 ft 11 in Weight 92.079 kg Vital Signs Temp Pulse Resp BP Pulse Ox O2 Del Method 97.9 F 90 16 127/76 99 09/11/22 06:32 09/11/22 06:32 09/11/22 06:32 09/11/22 06:32 09/11/22 06:32 09/11/22 06:32 Pertinent Lab Results Pertinent Lab Results: Laboratory Tests 09/11/22 06:12 COVID-19 ([facility]AL) Negative COVID-19 Clin Com See Note Airway Mallampati Class: II TM Dist: >3cm Loose/Missing/Broken Teeth: Yes (Poor dentition) Heart: RRR Lungs: CTAB Assessment and Plan Assessment Anesthesia Assessment: Anesthesia Plan Discussed and Chart Reviewed Final Anesthetic Review Family History of Problems with Anesthesia: No History of Problems with Anesthesia: No NPO: Yes ASA Class: III Final Preanesthetic Review: No Changes in Pt Med Stat, Meds/Allgs Chart Reviewed, Consent Obtained/Reviewed and Anes Risks/Benef Reviewed Patient Risk: Intermediate Procedure Risk: Intermediate Assessment/Block/Sedation in SS: Assess/Block/Sedation-SS Anesthetic Plan Anesthetic Plan: GA Disposition: Standard PACU
== END 2022-09-11 09:17 | disposition home or self-care (01) ==
PROVIDERS: PCP Pediatrics; Visit Provider Psychiatry & Neurology Psychiatry
PROC: (CPT 90870; principal; 2022-09-11 07:00)
DX: F25.9 Schizoaffective disorder, unspecified (principal); F43.10 Post-traumatic stress disorder, unspecified; F60.3 Borderline personality disorder; F41.1 Generalized anxiety disorder; Z91.52 Personal history of nonsuicidal self-harm; K21.9 Gastro-esophageal reflux disease without esophagitis; E66.01 Morbid (severe) obesity due to excess calories; Z68.41 Body mass index [BMI] 40.0-44.9, adult; J44.9 Chronic obstructive pulmonary disease, unspecified; Z79.51 Long term (current) use of inhaled steroids; Z79.899 Other long term (current) drug therapy; Z88.8 Allergy status to other drugs, medicaments and biological substances; F17.210 Nicotine dependence, cigarettes, uncomplicated; Z20.822 Contact with and (suspected) exposure to COVID-19
CPT/HCPCS: 87635; 90870; J0330; J1642; J1885; J2405

== ENCOUNTER 2022-09-14 05:56 | Day surgery (SDC) | payer OTHER, SELFPAY ==
[2022-09-14] VITALS (7 sets, daily range): BP systolic 114–132; BP diastolic 65–88; PULSE 86–97; RESP 13–23; TEMP 36.3–37.3; O2SAT 95–99; BMI 42.0
[2022-09-14 07:05] LABS: COVID-19 Test Negative (Negative); IDNOW Serial# 16C4AD1C
--- NOTE | 2022-09-14 07:08 | MHC.SHP ---
Pre-Procedural Eval Section A Date of Service: 09/14/22 The patient is an INPATIENT: No Changes since office visit: No Cold of Flu in the past 2 weeks, No New Medical Problems, No Changes in Medication and No Patient answered all questions The History & Physical has been completed within 30 days and I have reviewed it.: Yes Section B Chief Complaint: depression Allergies: Allergies Allergy/AdvReac Type Severity Reaction Status Date / Time carbamazepine [From TEGRETOL] AdvReac Unknown NAUSEA & Verified 09/01/22 08:09 VOMITING Fish Containing Products AdvReac Stomach Verified 09/01/22 08:09 Upset Plan I have reviewed the history and physical and performed a pertinent physical examination on my patient. No changes have occurred unless specified. Time Spent With Patient Time: Total time managing care of this patient today ____ minutes.
--- NOTE | 2022-09-14 07:09 | HO.ECTPROC ---
ECT Procedure Note Diagnosis/Treatment Date of Service: 09/14/22 Diagnosis: Schizoaffective Disorder Previous ECT Date: 09/11/22 Current Treatment Number: 8 Treatment: Series Interval Clinical Notes: The patient reported dysphoria but it was evident that her affect was brighter and ruiz in range. She denies new symptoms, no evidence of side effects with the previous ECT. Time: Total time managing care of this patient today _30___ minutes. ECT Settings Device: THYMATRON DGx Electrode Placement: Bitemporal Program/Pulse Width: 0.50 Energy Percent: 100 Seizure Duration By EEG (in seconds): 0 (The EEG showed seizure patterns for the first 18s) By Motor Observation (in seconds): 0 Medications Administration General Anesthetic: Etomidate (16) Muscle Relaxant: Succinylcholine (100) Ancillary Medications Analgesics: Torodol - Pre ECT Anti-emetics: Zofran - Pre ECT Airway Management Airway Management: Bag Mask Ventilation Treatment Recommendations No Changes Recommended: No change Pt Tolerated Procedure w/o Issue: Yes
--- NOTE | 2022-09-14 13:48 | HO.POSTANES ---
Post Anesthesia Evaluation Post Anesthesia Evaluation Vital Signs: Vital Signs Temp Pulse Resp BP Pulse Ox O2 Del Method O2 Flow Rate 09/14/22 08:29 98 F 87 20 124/75 97 Room Air 09/14/22 08:14 86 20 121/65 96 Room Air 09/14/22 08:09 87 19 114/70 97 Nasal Cannula 2 09/14/22 08:04 87 20 125/81 96 Nasal Cannula 2 09/14/22 07:59 91 13 132/78 95 Nasal Cannula 2 09/14/22 07:54 99.2 F 89 23 H 131/72 95 Nasal Cannula 09/14/22 06:37 97.4 F 97 20 128/88 99 Room Air Anesthesia: General Mental Status: Awake Pain Control: Satisfactory Nausea/Vomiting: None Hydration: Adequate Anesthesia-Related Issues: No Anes. Related Issues
== END 2022-09-14 09:28 | disposition home or self-care (01) ==
PROVIDERS: PCP Pediatrics; Visit Provider Psychiatry & Neurology Psychiatry
PROC: (CPT 90870; principal; 2022-09-14 07:30)
DX: F33.9 Major depressive disorder, recurrent, unspecified (principal); F25.9 Schizoaffective disorder, unspecified; Z91.52 Personal history of nonsuicidal self-harm
CPT/HCPCS: 87635; 90870; J0330; J1642; J1885; J2405

== ENCOUNTER 2022-09-18 05:50 | Day surgery (SDC) | payer OTHER, SELFPAY ==
[2022-09-18] VITALS (7 sets, daily range): BP systolic 114–142; BP diastolic 62–72; PULSE 81–90; RESP 19–22; TEMP 36.3–36.6; O2SAT 94–96; BMI 40.4
[2022-09-18 06:48] LABS: COVID-19 Test Negative (Negative); IDNOW Serial# 6674DD1D
--- NOTE | 2022-09-18 07:08 | P.CONAN_ITS ---
[facility] Active Problems Active Problems: All Active Problems (Updated 09/09/22 @ 00:02 by Adiel Sevilla) Injury of ligament of right knee (Acute) Sprain of anterior cruciate ligament of right knee (Acute) Hernia (Chronic) Schizoaffective disorder, depressive type (Chronic) Sprain of left foot (Acute) COVID-19 (Acute) COVID-19 (Acute) Chronic post-traumatic stress disorder (PTSD) (Chronic) Increased BMI (Acute) GERD (gastroesophageal reflux disease) (Acute) Borderline personality disorder (Chronic) Past Medical History Medical History Acute post-traumatic stress disorder Adjustment disorder Anxiety Asthma Borderline personality disorder Chronic post-traumatic stress disorder (PTSD) COPD (chronic obstructive pulmonary disease) Depression GERD (gastroesophageal reflux disease) History of electroconvulsive therapy Increased BMI Injury, self-inflicted Intentional self-harm PTSD (post-traumatic stress disorder) Recurrent major depression-severe Schizoaffective disorder Self-harming behavior Suicidal ideation Suicidal ideation Family History Family History Mother Brain cancer Other No family history of cardiac disease Family history of problems with anesthesia: No Surgical History History of Problems with Anesthesia: No Social History Social History Household Members: Other Household Members Other:: residential Housing: Assisted Living Facility Housing Other:: residential Do you presently have visiting nurse or other home services: No Alcohol intake: unknown Patient Tobacco Use Status: Current everyday Tobacco user Tobacco use type: Cigarette Cigarette Packs Per Day: 0.5 Cigarettes Per Day: 10.0 Years Smoked: 17 e-Cigarette/Vaping Use: Never Used Second Hand Smoke Exposure: Yes Substance Use Type: Marijuana Advance Directives: No Advance Directives Information Provided: Yes service: No Sexual orientation: Straight/Heterosexual Meds Allergies Allergy/AdvReac Type Severity Reaction Status Date / Time carbamazepine [From TEGRETOL] AdvReac Unknown NAUSEA & Verified 09/01/22 08:09 VOMITING Fish Containing Products AdvReac Stomach Verified 09/01/22 08:09 Upset Home Medications Medication Instructions Recorded Confirmed Last Taken Type acetaminophen 500 mg tablet 1 tab PO Q6H PRN pain 08/14/22 09/03/22 Unknown Hist ory albuterol sulfate 90 mcg/actuation 2 puff inhalation BID PRN Wheezing 08/14/22 09/03/22 Unknown History aerosol inhaler (ProAir HFA) benzonatate 100 mg capsule 1 cap PO TID PRN cough 08/14/22 09/03/22 Unknown History benztropine 0.5 mg tablet 1 tab PO BID 08/14/22 09/03/22 Unknown History diphenhydramine HCl 50 mg capsule 2 cap PO BEDTIME 08/14/22 09/03/22 Unknown History (Banophen) duloxetine 60 mg capsule,delayed 1 cap PO QAM 08/14/22 09/03/22 Unknown History release ferrous sulfate 325 mg (65 mg 1 tab PO QAM 08/14/22 09/03/22 Unknown History iron) tablet,delayed release fluticasone propionate 230 2 puff inhalation BID 08/14/22 09/03/22 Unknown History mcg-salmeterol 21 mcg/actuation HFA inhaler (Advair HFA) haloperidol 5 mg tablet 1 tab PO TID PRN Agitation 08/14/22 09/03/22 Unknown History hydroxyzine pamoate 50 mg capsule 1 cap PO BID PRN Anxiety 08/14/22 09/03/22 Unknown History lorazepam 1 mg tablet 1 tab PO TID PRN anxiety 08/14/22 09/03/22 Unknown History nicotine (polacrilex) 2 mg gum 2 mg buccal Q2H PRN Smoking 08/14/22 09/03/22 Unknown History Cessation omeprazole 20 mg tablet,delayed 20 mg PO DAILY 08/14/22 09/03/22 Unknown History release ondansetron HCl 4 mg tablet 1 tab PO Q6H PRN nausea/vomiting 08/14/22 09/03/22 Unknown History prazosin 1 mg capsule 1 cap PO BEDTIME 08/14/22 09/03/22 Unknown History prazosin 5 mg capsule 3 cap PO BEDTIME 08/14/22 09/03/22 Unknown History zolpidem 10 mg tablet 1 tab PO BEDTIME 08/14/22 09/03/22 Unknown History Exam Exam Date and Time: September 18, 2022 0708 Height,Weight and Vital Signs: Height 4 ft 11 in Weight 90.718 kg Last Vital Signs Temp 97.3 F 09/18/22 06:47 Pulse 88 09/18/22 06:47 Resp 20 09/18/22 06:47 BP 127/70 09/18/22 06:47 Pulse Ox 96 09/18/22 06:47 O2 Del Method 09/18/22 06:47 Pertinent Lab Results Pertinent Lab Results: Laboratory Tests 09/18/22 06:20 COVID-19 (RAFAL) Negative COVID-19 Clin Com See Note Airway Mallampati Class: II TM Dist: >3cm Neck ROM: Full Heart: rrr Lungs: cta Assessment and Plan Assessment Anesthesia Assessment: Anesthesia Plan Discussed and Chart Reviewed Final Anesthetic Review Family History of Problems with Anesthesia: No History of Problems with Anesthesia: No NPO: Yes ASA Class: III Final Preanesthetic Review: No Changes in Pt Med Stat, Meds/Allgs Chart Reviewed and Consent Obtained/Reviewed Patient Risk: Intermediate Procedure Risk: Intermediate Anesthetic Plan Anesthetic Plan: GA Disposition: Standard PACU
--- NOTE | 2022-09-18 07:43 | MHC.SHP ---
Pre-Procedural Eval Section A Date of Service: 09/18/22 The patient is an INPATIENT: No Changes since office visit: No Cold of Flu in the past 2 weeks, No New Medical Problems, No Changes in Medication and No Patient answered all questions The History & Physical has been completed within 30 days and I have reviewed it.: Yes Section B Chief Complaint: depression Allergies: Allergies Allergy/AdvReac Type Severity Reaction Status Date / Time carbamazepine [From TEGRETOL] AdvReac Unknown NAUSEA & Verified 09/01/22 08:09 VOMITING Fish Containing Products AdvReac Stomach Verified 09/01/22 08:09 Upset Plan I have reviewed the history and physical and performed a pertinent physical examination on my patient. No changes have occurred unless specified. Time Spent With Patient Time: Total time managing care of this patient today ____ minutes.
--- NOTE | 2022-09-18 07:43 | HO.ECTPROC ---
ECT Procedure Note Diagnosis/Treatment Date of Service: 09/18/22 Diagnosis: Schizoaffective Disorder Previous ECT Date: 09/14/22 Current Treatment Number: 9 Treatment: Series Interval Clinical Notes: The patient reports improvement of her dysphoria and her affect looks brighter with a wider range. No side effects with previous ECT. Time: Total time managing care of this patient today __30__ minutes. ECT Settings Device: THYMATRON DGx Electrode Placement: Bitemporal Program/Pulse Width: 0.50 Energy Percent: 100 Seizure Duration By EEG (in seconds): 23 By Motor Observation (in seconds): 16 Medications Administration General Anesthetic: Etomidate (16) Muscle Relaxant: Succinylcholine (100) Ancillary Medications Analgesics: Torodol - Pre ECT Anti-emetics: Zofran - Pre ECT Treatment Recommendations No Changes Recommended: No change Pt Tolerated Procedure w/o Issue: Yes
== END 2022-09-18 09:30 | disposition home or self-care (01) ==
PROVIDERS: PCP Pediatrics; Visit Provider Psychiatry & Neurology Psychiatry
PROC: (CPT 90870; principal; 2022-09-18 15:30)
DX: F25.9 Schizoaffective disorder, unspecified (principal); F43.12 Post-traumatic stress disorder, chronic; F60.3 Borderline personality disorder; F43.22 Adjustment disorder with anxiety; Z91.52 Personal history of nonsuicidal self-harm; J44.9 Chronic obstructive pulmonary disease, unspecified; J45.909 Unspecified asthma, uncomplicated; Z79.51 Long term (current) use of inhaled steroids; E66.01 Morbid (severe) obesity due to excess calories; Z68.41 Body mass index [BMI] 40.0-44.9, adult; Z79.899 Other long term (current) drug therapy; Z88.8 Allergy status to other drugs, medicaments and biological substances; F17.210 Nicotine dependence, cigarettes, uncomplicated; F12.90 Cannabis use, unspecified, uncomplicated
CPT/HCPCS: 87635; 90870; J0330; J1642; J1885; J2405

== ENCOUNTER 2022-09-18 18:28 | Emergency (ER) | payer OTHER, SELFPAY ==
--- NOTE | 2022-09-18 18:30 | ED.PSYCH ---
HPI - Psych General Chief Complaint: Psychiatric Symptoms Stated Complaint: si Time Seen by Provider: 09/18/22 18:30 Source: patient and EMS Mode of arrival: EMS Limitations: other (Panic) History of Present Illness HPI Narrative: 37-year-old female presents via EMS for suicidal ideation. Patient is screaming, punching herself in the face, and is unable to be redirected. MD complaint: suicidal ideation and anxiety Onset (ago): year(s) Duration: constant History of same: Yes Relieving factors: none Context: significant life stressor Associated psychiatric symptoms: depression, suicidal ideation and auditory hallucinations Associated symptoms: denies other symptoms If self harm: admits thoughts of self harm Related Data Home Medications Medication Instructions Recorded Confirmed acetaminophen 500 mg tablet 1 tab PO Q6H PRN pain 08/14/22 09/18/22 albuterol sulfate 90 mcg/actuation 2 puff inhalation BID PRN Wheezing 08/14/22 09/18/22 aerosol inhaler (ProAir HFA) benzonatate 100 mg capsule 1 cap PO TID PRN cough 08/14/22 09/18/22 benztropine 0.5 mg tablet 1 tab PO BID 08/14/22 09/18/22 diphenhydramine HCl 50 mg capsule 2 cap PO BEDTIME 08/14/22 09/18/22 (Banophen) duloxetine 60 mg capsule,delayed 1 cap PO QAM 08/14/22 09/18/22 release ferrous sulfate 325 mg (65 mg 1 tab PO QAM 08/14/22 09/18/22 iron) tablet,delayed release fluticasone propionate 230 2 puff inhalation BID 08/14/22 09/18/22 mcg-salmeterol 21 mcg/actuation HFA inhaler (Advair HFA) haloperidol 5 mg tablet 1 tab PO TID PRN Agitation 08/14/22 09/18/22 hydroxyzine pamoate 50 mg capsule 1 cap PO BID PRN Anxiety 08/14/22 09/18/22 lorazepam 1 mg tablet 1 tab PO TID PRN anxiety 08/14/22 09/18/22 nicotine (polacrilex) 2 mg gum 2 mg buccal Q2H PRN Smoking 08/14/22 09/18/22 Cessation omeprazole 20 mg tablet,delayed 20 mg PO DAILY 12/30/22 02/03/23 release ondansetron HCl 4 mg tablet 1 tab PO Q6H PRN nausea/vomiting 08/14/22 09/18/22 prazosin 1 mg capsule 1 cap PO BEDTIME 08/14/22 09/18/22 prazosin 5 mg capsule 3 cap PO BEDTIME 08/14/22 09/18/22 zolpidem 10 mg tablet 1 tab PO BEDTIME 08/14/22 09/18/22 Previous Rx's Medication Instructions Recorded clonidine HCl 0.1 mg tablet 0.1 mg PO TID 30 days #90 tabs 09/01/22 docusate sodium 100 mg capsule 100 mg PO BID 30 days #60 caps 09/01/22 haloperidol decanoate 50 mg/mL 75 mg (1.5 mL) IM Q28D #0 mL 09/01/22 intramuscular solution lithium carbonate 300 mg 300 mg PO DAILY@1600 30 days #30 09/01/22 tablet,extended release tabs trazodone 50 mg tablet 150 mg PO BEDTIME 30 days #90 tabs 09/01/22 Allergies Allergy/AdvReac Type Severity Reaction Status Date / Time carbamazepine [From TEGRETOL] AdvReac Unknown NAUSEA & Verified 09/01/22 08:09 VOMITING Fish Containing Products AdvReac Stomach Verified 09/01/22 08:09 Upset Review of Systems Review of Systems: Constitutional: No Fever, No Chills Cardiovascular: No Chest Pain, No SOB Respiratory: No Cough, No Sputum, No Dyspnea Gastrointestinal: No Nausea, No Vomiting, No Diarrhea Skin: No Skin Lesions, No rash Psych: positive Anxiety, positive Depression, positive SI Yes all other systems are reviewed and are negative PMFSH Past Medical History Attestation statement: The following information was validated with the patient. Source: old records reviewed Medical History Acute post-traumatic stress disorder Adjustment disorder Anxiety Asthma Borderline personality disorder Chronic post-traumatic stress disorder (PTSD) COPD (chronic obstructive pulmonary disease) Depression GERD (gastroesophageal reflux disease) History of electroconvulsive therapy Increased BMI Injury, self-inflicted Intentional self-harm PTSD (post-traumatic stress disorder) Recurrent major depression-severe Schizoaffective disorder Self-harming behavior Suicidal ideation Suicidal ideation Family History Family History Mother Brain cancer Other No family history of cardiac disease Social History Social History Household Members: Other Household Members Other:: residential Housing: Assisted Living Facility Housing Other:: residential Do you presently have visiting nurse or other home services: No Alcohol intake: unknown Patient Tobacco Use Status: Current everyday Tobacco user Tobacco use type: Cigarette Cigarette Packs Per Day: 0.5 Cigarettes Per Day: 10.0 Years Smoked: 17 e-Cigarette/Vaping Use: Never Used Second Hand Smoke Exposure: Yes Substance Use Type: Marijuana Advance Directives: No Advance Directives Information Provided: No Healthcare Proxy: No Guardian: No service: No Sexual orientation: Straight/Heterosexual Physical Exam Vital Signs: Vital Signs: Last Vital Signs Temp 97.8 F 09/18/22 19:01 Pulse 103 H 09/18/22 19:01 Resp 17 09/18/22 20:01 BP 126/78 09/18/22 19:01 Pulse Ox 98 09/18/22 19:01 O2 Del Method 09/18/22 19:01 BMI result Body Mass Index 45.7 Appearance: Alert. Moderate emotional distress. Eyes: Pupils equal, round and reactive to light. Neck: Normal inspection. Neck supple. CVS: Normal heart rate and rhythm. Pulses normal. Respiratory: No respiratory distress. Breath sounds normal. Extremities: Gait well-balanced well coordinated. Neuro: No motor deficit. No sensory deficit. Cranial nerves 2-12 intact Course Course Course Narrative: 37-year-old female presents via EMS for suicidal ideation and self injuries behaviors. This patient is well-known to this facility. Patient is answering questions appropriately, however is in extreme distress, slamming her head against the wall, and punching herself in the face. Order for 10 mg of IM Zyprexa at this time. Behavioral restraints ordered because patient was unable to be redirected, and was exhibiting self-injurious behaviors. Patient was dressed appropriately for the weather, physical exam is normal. No indication of frostbite. Brisk capillary refill, equal pulses bilaterally. Skin is warm and intact. 30 minutes after IM Zyprexa, patient is still in exacerbated state, order for p.o. Haldol and Ativan. Patient is calm and cooperative, states that she was upset because she was coming from [place]. She was there to buy cannabinoids and she did not have a ride home, she became anxious because she was stranded in frigid weather. She states that her anxiety triggered her PTSD, and is speaking of her sister and her sister's court dates. Patient feels that she is safe to go home, will discharge home in the morning. Medications Administered Discontinued Medications Generic Name Dose Route Start Last Admin Trade Name Freq PRN Reason Stop Dose Admin Diphenhydramine HCl 50 mg 09/18/22 19:08 09/18/22 19:14 Diphenhydramine Hcl 25 Mg Capsule PO 09/18/22 19:09 50 mg ONCE ONE Administration Haloperidol 10 mg 09/18/22 19:07 09/18/22 19:14 Haloperidol 5 Mg Tablet PO 09/18/22 19:08 10 mg ONCE ONE Administration Lorazepam 2 mg 09/18/22 19:08 09/18/22 19:15 Lorazepam 1 Mg Tablet PO 09/18/22 19:09 2 mg ONCE ONE Administration Olanzapine 10 mg 09/18/22 18:39 09/18/22 19:01 Olanzapine 10 Mg Vial IM 09/18/22 18:40 10 mg STAT STA Administration Medical Decision Making Differential Diagnosis Differential Diagnoses: The differential diagnosis associated with the presentation includes SI, anxiety, PTSD, psychosis Consult Healthcare Provider Management of the patient was discussed with: Behavioral Health Provider Lab Data MDM Lab Attestation statement: I reviewed the patient's lab results. Labs: Lab Results 09/18/22 Range/Units 22:10 COVID-19 ([facility]AL) Negative (Negative) COVID-19 Clin Com See Note External Record Review External record reviewed: Inpatient record, Outpatient record and Prior outpatient labs Social Determinants Patient?s care significantly limited by Social Determinants of Health including: Other Social Determinant of Health Discharge Plan Discharge Clinical Impression: Suicidal ideation, Acute anxiety Patient Disposition: Home, Self-Care Instructions: Anxiety (ED) Additional Instructions: Follow-up with outpatient psychiatry as needed. Thank you for choosing this emergency department for evaluation. Please follow-up with primary care physician as needed. Return to the emergency department for any new, concerning, or worsening symptoms. Prescriptions: No Action benztropine 0.5 mg tablet 1 tab PO BID haloperidol 5 mg tablet 1 tab PO TID PRN (Reason: Agitation) diphenhydramine HCl [Banophen] 50 mg capsule 2 cap PO BEDTIME prazosin 1 mg capsule 1 cap PO BEDTIME hydroxyzine pamoate 50 mg capsule 1 cap PO BID PRN (Reason: Anxiety) zolpidem 10 mg tablet 1 tab PO BEDTIME ferrous sulfate 325 mg (65 mg iron) tablet,delayed release (DR/EC) 1 tab PO QAM duloxetine 60 mg capsule,delayed release(DR/EC) 1 cap PO QAM ondansetron HCl 4 mg tablet 1 tab PO Q6H PRN (Reason: nausea/vomiting) acetaminophen 500 mg tablet 1 tab PO Q6H PRN (Reason: pain) prazosin 5 mg capsule 3 cap PO BEDTIME benzonatate 100 mg capsule 1 cap PO TID PRN (Reason: cough) lorazepam 1 mg tablet 1 tab PO TID PRN (Reason: anxiety) albuterol sulfate [ProAir HFA] 90 mcg/actuation HFA aerosol inhaler 2 puff inhalation BID PRN (Reason: Wheezing) Advair HFA 230-21 mcg/actuation HFA aerosol inhaler 2 puff inhalation BID nicotine (polacrilex) 2 mg Gum 2 mg BUCCAL Q2H PRN (Reason: Smoking Cessation) omeprazole 20 mg Tablet,Delayed Release (Dr/Ec) 20 mg PO DAILY clonidine HCl 0.1 mg Tablet 0.1 mg PO TID 30 Days Qty: 90 0RF Protocol: Hold for SBP< HOLD for SBP < : 90 trazodone 50 mg Tablet 150 mg PO BEDTIME 30 Days Qty: 90 0RF lithium carbonate 300 mg Tablet Extended Release 300 mg PO DAILY@1600 30 Days Qty: 30 0RF Rx Instructions: HOLD NIGHT BEFORE ECT docusate sodium 100 mg Capsule 100 mg PO BID 30 Days Qty: 60 0RF Rx Instructions: HOLD FOR LOOSE STOOL haloperidol decanoate 50 mg/mL Solution 75 mg IM Q28D Qty: 0 0RF
[2022-09-18 18:52] VITALS: BP 160/67; PULSE 89; RESP 22; TEMP 37; O2SAT 99; BMI 45.7
[2022-09-18 19:01] VITALS: BP 126/78; PULSE 103; RESP 18; TEMP 36.6; O2SAT 98
[2022-09-18] MEDS: OLANZapine 10 MG VIAL IM (19:01)
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
[2022-09-18] MEDS: HaloperidoL 5 MG TABLET 10 MG PO (19:14)
[2022-09-18] MEDS: diphenhydrAMINE HCL 25 MG CAPSULE 50 MG PO (19:14)
[2022-09-18] MEDS: LORazepam 1 MG TABLET 2 MG PO (19:15)
[2022-09-18 19:16] VITALS: RESP 17
[2022-09-18 19:31] VITALS: RESP 17
[2022-09-18 19:46] VITALS: RESP 17
[2022-09-18 20:01] VITALS: RESP 17
[2022-09-18 22:54] LABS: COVID-19 Test Negative (Negative); IDNOW Serial# 6674DD1D
--- NOTE | 2022-09-19 05:21 | PC.NURSE ---
Patient was chemical restraint with Olanzapine 10 mg IM @ 190 due to emotional dysregulation, she was extremely hyper, restless. CR not effective Haldol 10 mg PO, Ativan 2 mg PO, and Benadryl 50 mg PO administered at 191 with + effect, slept through the night, no distress observed/reported, patient is on 1:1 for safety, patient is ready to be discharged in the morning, will continue to monitor.
--- NOTE | 2022-09-19 08:10 | MHC.CARE ---
Pt was provided a Lyft home
== END 2022-09-19 07:55 | disposition home or self-care (01) ==
PROVIDERS: Nurse Practitioner Family; Emergency Provider Internal Medicine; PCP Pediatrics
DX: F33.1 Major depressive disorder, recurrent, moderate (principal); R45.851 Suicidal ideations; F41.1 Generalized anxiety disorder; F43.0 Acute stress reaction; Z20.822 Contact with and (suspected) exposure to COVID-19; Z20.828 Contact with and (suspected) exposure to other viral communicable diseases
CPT/HCPCS: 87635; 96372; 99284; S9485

== ENCOUNTER 2022-09-21 05:51 | Day surgery (SDC) | payer OTHER, SELFPAY ==
[2022-09-21] VITALS (7 sets, daily range): BP systolic 117–156; BP diastolic 69–90; PULSE 83–96; RESP 19–23; TEMP 36.4–36.8; O2SAT 92–98; BMI 41.0
[2022-09-21 06:46] LABS: COVID-19 Test Negative (Negative); IDNOW Serial# BCCEAD1C
--- NOTE | 2022-09-21 06:50 | HO.ANESPROP2 ---
[facility] Active Problems Active Problems: All Active Problems (Updated 09/20/22 @ 00:01 by Adiel Sevilla) Injury of ligament of right knee (Acute) Sprain of anterior cruciate ligament of right knee (Acute) Hernia (Chronic) Schizoaffective disorder, depressive type (Chronic) Sprain of left foot (Acute) COVID-19 (Acute) COVID-19 (Acute) Chronic post-traumatic stress disorder (PTSD) (Chronic) Increased BMI (Acute) GERD (gastroesophageal reflux disease) (Acute) Borderline personality disorder (Chronic) Past Medical History Medical History Acute post-traumatic stress disorder Adjustment disorder Anxiety Asthma Borderline personality disorder Chronic post-traumatic stress disorder (PTSD) COPD (chronic obstructive pulmonary disease) Depression GERD (gastroesophageal reflux disease) History of electroconvulsive therapy Increased BMI Injury, self-inflicted Intentional self-harm PTSD (post-traumatic stress disorder) Recurrent major depression-severe Schizoaffective disorder Self-harming behavior Suicidal ideation Suicidal ideation Family History Family History Mother Brain cancer Other No family history of cardiac disease Family history of problems with anesthesia: No Surgical History History of Problems with Anesthesia: No Social History Social History Household Members: Other Household Members Other:: residential Housing: Assisted Living Facility Housing Other:: residential Do you presently have visiting nurse or other home services: No Alcohol intake: unknown Patient Tobacco Use Status: Current everyday Tobacco user Tobacco use type: Cigarette Cigarette Packs Per Day: 0.5 Cigarettes Per Day: 10.0 Years Smoked: 17 e-Cigarette/Vaping Use: Never Used Second Hand Smoke Exposure: Yes Substance Use Type: Marijuana Advance Directives: No Advance Directives Information Provided: Yes service: No Sexual orientation: Straight/Heterosexual Meds Allergies Allergy/AdvReac Type Severity Reaction Status Date / Time carbamazepine [From TEGRETOL] AdvReac Unknown NAUSEA & Verified 09/01/22 08:09 VOMITING Fish Containing Products AdvReac Stomach Verified 09/01/22 08:09 Upset Home Medications Medication Instructions Recorded Confirmed Last Taken Type acetaminophen 500 mg tablet 1 tab PO Q6H PRN pain 08/14/22 09/18/22 Unknown History albuterol sulfate 90 mcg/actuation 2 puff inhalation BID PRN Wheezing 08/14/22 09/18/22 Unknown History aerosol inhaler (ProAir HFA) benzonatate 100 mg capsule 1 cap PO TID PRN cough 08/14/22 09/18/22 Unknown History benztropine 0.5 mg tablet 1 tab PO BID 08/14/22 09/18/22 Unknown History diphenhydramine HCl 50 mg capsule 2 cap PO BEDTIME 08/14/22 09/18/22 Unknown History (Banophen) duloxetine 60 mg capsule,delayed 1 cap PO QAM 08/14/22 09/18/22 Unknown History release ferrous sulfate 325 mg (65 mg 1 tab PO QAM 08/14/22 09/18/22 Unknown History iron) tablet,delayed release fluticasone propionate 230 2 puff inhalation BID 08/14/22 09/18/22 Unknown History mcg-salmeterol 21 mcg/actuation HFA inhaler (Advair HFA) haloperidol 5 mg tablet 1 tab PO TID PRN Agitation 08/14/22 09/18/22 Unknown History hydroxyzine pamoate 50 mg capsule 1 cap PO BID PRN Anxiety 08/14/22 09/18/22 Unknown History lorazepam 1 mg tablet 1 tab PO TID PRN anxiety 08/14/22 09/18/22 Unknown History nicotine (polacrilex) 2 mg gum 2 mg buccal Q2H PRN Smoking 08/14/22 09/18/22 Unknown History Cessation omeprazole 20 mg tablet,delayed 20 mg PO DAILY 08/14/22 09/18/22 Unknown History release ondansetron HCl 4 mg tablet 1 tab PO Q6H PRN nausea/vomiting 08/14/22 09/18/22 Unknown History prazosin 1 mg capsule 1 cap PO BEDTIME 08/14/22 09/18/22 Unknown History prazosin 5 mg capsule 3 cap PO BEDTIME 08/14/22 09/18/22 Unknown History zolpidem 10 mg tablet 1 tab PO BEDTIME 08/14/22 09/18/22 Unknown History Exam Exam Date and Time: September 21, 2022 0650 Pertinent Lab Results Pertinent Lab Results: Laboratory Tests 09/21/22 06:18 COVID-19 (RAFAL) Negative COVID-19 Clin Com See Note Airway Mallampati Class: II (Couple missing) TM Dist: >3cm Neck ROM: Full Heart: rrr Lungs: cta Assessment and Plan Assessment Anesthesia Assessment: Anesthesia Plan Discussed and Chart Reviewed Final Anesthetic Review Family History of Problems with Anesthesia: No History of Problems with Anesthesia: No NPO: Yes ASA Class: III Final Preanesthetic Review: No Changes in Pt Med Stat, Meds/Allgs Chart Reviewed and Consent Obtained/Reviewed Patient Risk: Intermediate Procedure Risk: Intermediate Anesthetic Plan Anesthetic Plan: GA Disposition: Standard PACU
--- NOTE | 2022-09-21 07:07 | MHC.SHP ---
Pre-Procedural Eval Section A Date of Service: 09/21/22 The patient is an INPATIENT: No Changes since office visit: Yes Cold of Flu in the past 2 weeks, Yes New Medical Problems, Yes Changes in Medication and Yes Patient answered all questions The History & Physical has been completed within 30 days and I have reviewed it.: Yes Section B Chief Complaint: depression Allergies: Allergies Allergy/AdvReac Type Severity Reaction Status Date / Time carbamazepine [From TEGRETOL] AdvReac Unknown NAUSEA & Verified 09/01/22 08:09 VOMITING Fish Containing Products AdvReac Stomach Verified 09/01/22 08:09 Upset Plan I have reviewed the history and physical and performed a pertinent physical examination on my patient. No changes have occurred unless specified. Time Spent With Patient Time: Total time managing care of this patient today ____ minutes.
--- NOTE | 2022-09-21 07:10 | HO.ECTPROC ---
ECT Procedure Note Diagnosis/Treatment Date of Service: 09/21/22 Diagnosis: Schizoaffective Disorder Previous ECT Date: 09/18/22 Current Treatment Number: 11 Treatment: Series Interval Clinical Notes: The patient reported improvement of depression, no self harming behavior in the last weeks. No side effects with previous ECT. We dicuscussed the possibility of lowering the frequency of ECT to maintenance soon. Time: Total time managing care of this patient today __30__ minutes. ECT Settings Device: THYMATRON DGx Electrode Placement: Bitemporal Program/Pulse Width: 0.50 Energy Percent: 100 Seizure Duration By EEG (in seconds): 20 By Motor Observation (in seconds): 16 Medications Administration General Anesthetic: Etomidate (16) Muscle Relaxant: Succinylcholine (100) Ancillary Medications Analgesics: Torodol - Pre ECT Anti-emetics: Zofran - Pre ECT Miscillaneous Medications: Propofol Airway Management Airway Management: Bag Mask Ventilation Treatment Recommendations No Changes Recommended: No change Pt Tolerated Procedure w/o Issue: Yes
== END 2022-09-21 09:28 | disposition home or self-care (01) ==
PROVIDERS: PCP Pediatrics; Visit Provider Psychiatry & Neurology Psychiatry
PROC: (CPT 90870; principal; 2022-09-21 07:00)
DX: F25.1 Schizoaffective disorder, depressive type (principal); F43.12 Post-traumatic stress disorder, chronic; F60.3 Borderline personality disorder; F41.1 Generalized anxiety disorder; Z91.52 Personal history of nonsuicidal self-harm; J44.9 Chronic obstructive pulmonary disease, unspecified; Z79.51 Long term (current) use of inhaled steroids; E66.01 Morbid (severe) obesity due to excess calories; Z68.41 Body mass index [BMI] 40.0-44.9, adult; Z79.899 Other long term (current) drug therapy; F17.210 Nicotine dependence, cigarettes, uncomplicated; Z88.8 Allergy status to other drugs, medicaments and biological substances; F12.90 Cannabis use, unspecified, uncomplicated; Z20.822 Contact with and (suspected) exposure to COVID-19
CPT/HCPCS: 87635; 90870; J0330; J1642; J1885; J2405

== ENCOUNTER 2022-09-23 03:43 | Emergency (ER) | payer OTHER, SELFPAY ==
[2022-09-23 03:49] VITALS: BP 112/76; PULSE 104; O2SAT 98
--- NOTE | 2022-09-23 03:54 | ED.NAVMDI ---
HPI - Nausea/Vomiting/Diarrhea General Chief complaint: Nausea/Vomiting/Diarrhea Stated complaint: nausea and vomiting Time Seen by Provider: 09/23/22 03:52 Source: patient Mode of arrival: EMS Limitations: no limitations History of Present Illness HPI Narrative: Patient has schizoaffective disorder PTSD marijuana smoker with him multiple times comes here tonight by EMS for nausea vomiting since midnight had 2 bowel movements feels very anxious no abdominal pain no fever or chills Related Data Home Medications Medication Instructions Recorded Confirmed acetaminophen 500 mg tablet 1 tab PO Q6H PRN pain 08/14/22 09/18/22 albuterol sulfate 90 mcg/actuation 2 puff inhalation BID PRN Wheezing 08/14/22 09/18/22 aerosol inhaler (ProAir HFA) benzonatate 100 mg capsule 1 cap PO TID PRN cough 08/14/22 09/18/22 benztropine 0.5 mg tablet 1 tab PO BID 08/14/22 09/18/22 diphenhydramine HCl 50 mg capsule 2 cap PO BEDTIME 08/14/22 09/18/22 (Banophen) duloxetine 60 mg capsule,delayed 1 cap PO QAM 08/14/22 09/18/22 release ferrous sulfate 325 mg (65 mg 1 tab PO QAM 08/14/22 09/18/22 iron) tablet,delayed release fluticasone propionate 230 2 puff inhalation BID 08/14/22 09/18/22 mcg-salmeterol 21 mcg/actuation HFA inhaler (Advair HFA) haloperidol 5 mg tablet 1 tab PO TID PRN Agitation 08/14/22 09/18/22 hydroxyzine pamoate 50 mg capsule 1 cap PO BID PRN Anxiety 08/14/22 09/18/22 lorazepam 1 mg tablet 1 tab PO TID PRN anxiety 08/14/22 09/18/22 nicotine (polacrilex) 2 mg gum 2 mg buccal Q2H PRN Smoking 08/14/22 09/18/22 Cessation omeprazole 20 mg tablet,delayed 20 mg PO DAILY 08/14/22 09/18/22 release ondansetron HCl 4 mg tablet 1 tab PO Q6H PRN nausea/vomiting 08/14/22 09/18/22 prazosin 1 mg capsule 1 cap PO BEDTIME 08/14/22 09/18/22 prazosin 5 mg capsule 3 cap PO BEDTIME 08/14/22 09/18/22 zolpidem 10 mg tablet 1 tab PO BEDTIME 08/14/22 09/18/22 Previous Rx's Medication Instructions Recorded clonidine HCl 0.1 mg tablet 0.1 mg PO TID 30 days #90 tabs 09/01/22 docusate sodium 100 mg capsule 100 mg PO BID 30 days #60 caps 09/01/22 haloperidol decanoate 50 mg/mL 75 mg (1.5 mL) IM Q28D #0 mL 09/01/22 intramuscular solution lithium carbonate 300 mg 300 mg PO DAILY@1600 30 days #30 09/01/22 tablet,extended release tabs trazodone 50 mg tablet 150 mg PO BEDTIME 30 days #90 tabs 09/01/22 Allergies Allergy/AdvReac Type Severity Reaction Status Date / Time carbamazepine [From TEGRETOL] AdvReac Unknown NAUSEA & Verified 09/23/22 03:55 VOMITING Fish Containing Products AdvReac Stomach Verified 09/23/22 03:55 Upset Review of Systems Review of Systems: Yes all other systems are reviewed and are negative PMFSH Past Medical History Medical History Acute post-traumatic stress disorder Adjustment disorder Anxiety Asthma Borderline personality disorder Chronic post-traumatic stress disorder (PTSD) COPD (chronic obstructive pulmonary disease) Depression GERD (gastroesophageal reflux disease) History of electroconvulsive therapy Increased BMI Injury, self-inflicted Intentional self-harm PTSD (post-traumatic stress disorder) Recurrent major depression-severe Schizoaffective disorder Self-harming behavior Suicidal ideation Suicidal ideation Family History Family History Mother Brain cancer Other No family history of cardiac disease Social History Social History Household Members: Other Household Members Other:: [facility] Housing: Assisted Living Facility Housing Other:: [facility] Do you presently have visiting nurse or other home services: No Alcohol intake: never Patient Tobacco Use Status: Current everyday Tobacco user Tobacco use type: Cigarette Cigarette Packs Per Day: 0.5 Cigarettes Per Day: 10.0 Years Smoked: 17 Smoked in Last 30 Days: Yes e-Cigarette/Vaping Use: Never Used Second Hand Smoke Exposure: Yes Use of substances other than those prescribed or required for medical reasons: Yes Substance Use Type: Marijuana Substance Use Frequency: Daily Advance Directives: No Advance Directives Information Provided: Yes service: No Sexual orientation: Straight/Heterosexual Physical Exam Vital Signs: Vital Signs: Last Vital Signs Temp 98.1 F 09/23/22 03:55 Pulse 96 09/23/22 03:55 Resp 20 09/23/22 03:55 BP 136/69 09/23/22 03:55 Pulse Ox 97 09/23/22 03:55 O2 Del Method 09/23/22 03:55 BMI result Body Mass Index 41.0 Appearance: Alert. Oriented X3. No acute distress. Anxious Eyes: PERRLA, No Nystagmus ENT: Pharynx normal. Oral Mucosa moist Neck: Normal inspection. Neck supple. CVS: Normal heart rate and rhythm. Pulses normal. Respiratory: No respiratory distress. Equal air entry bilateral, no wheezing/rales/rhonchi Abdomen: Soft and nontender. Bowel sounds are present, no mass palpable, no CVA tenderness Skin: Skin warm and dry. Normal skin color. Normal skin turgor. Extremities: No lower extremity edema. No calf tenderness Neuro: Oriented X 3. No motor deficit. No sensory deficit.No cerebellar signs , cranial nerves II-XII intact Medications Administered Discontinued Medications Generic Name Dose Route Start Last Admin Trade Name Freq PRN Reason Stop Dose Admin Haloperidol 10 mg 09/23/22 04:04 09/23/22 04:14 Haloperidol 5 Mg Tablet PO 09/23/22 04:05 10 mg ONCE ONE Administration Lorazepam 2 mg 09/23/22 03:56 09/23/22 04:14 Lorazepam 1 Mg Tablet PO 09/23/22 03:57 2 mg ONCE ONE Administration Medical Decision Making Medical Decision Making [facility] Narrative: Patient anxiety with vomiting felt better after Haldol Ativan able to take p.o. fluids will discharge patient home Discharge Plan Discharge Clinical Impression: Gastroenteritis, Anxiety Patient Disposition: Home, Self-Care Instructions: Acute Nausea and Vomiting (ED), Anxiety (ED) Additional Instructions: Drink plenty of fluids Take your medication as prescribed by your psychiatrist Prescriptions: No Action benztropine 0.5 mg tablet 1 tab PO BID haloperidol 5 mg tablet 1 tab PO TID PRN (Reason: Agitation) diphenhydramine HCl [Banophen] 50 mg capsule 2 cap PO BEDTIME prazosin 1 mg capsule 1 cap PO BEDTIME hydroxyzine pamoate 50 mg capsule 1 cap PO BID PRN (Reason: Anxiety) zolpidem 10 mg tablet 1 tab PO BEDTIME ferrous sulfate 325 mg (65 mg iron) tablet,delayed release (DR/EC) 1 tab PO QAM duloxetine 60 mg capsule,delayed release(DR/EC) 1 cap PO QAM ondansetron HCl 4 mg tablet 1 tab PO Q6H PRN (Reason: nausea/vomiting) acetaminophen 500 mg tablet 1 tab PO Q6H PRN (Reason: pain) prazosin 5 mg capsule 3 cap PO BEDTIME benzonatate 100 mg capsule 1 cap PO TID PRN (Reason: cough) lorazepam 1 mg tablet 1 tab PO TID PRN (Reason: anxiety) albuterol sulfate [ProAir HFA] 90 mcg/actuation HFA aerosol inhaler 2 puff inhalation BID PRN (Reason: Wheezing) Advair HFA 230-21 mcg/actuation HFA aerosol inhaler 2 puff inhalation BID nicotine (polacrilex) 2 mg Gum 2 mg BUCCAL Q2H PRN (Reason: Smoking Cessation) omeprazole 20 mg Tablet,Delayed Release (Dr/Ec) 20 mg PO DAILY clonidine HCl 0.1 mg Tablet 0.1 mg PO TID 30 Days Qty: 90 0RF Protocol: Hold for SBP< HOLD for SBP < : 90 trazodone 50 mg Tablet 150 mg PO BEDTIME 30 Days Qty: 90 0RF lithium carbonate 300 mg Tablet Extended Release 300 mg PO DAILY@1600 30 Days Qty: 30 0RF Rx Instructions: HOLD NIGHT BEFORE ECT docusate sodium 100 mg Capsule 100 mg PO BID 30 Days Qty: 60 0RF Rx Instructions: HOLD FOR LOOSE STOOL haloperidol decanoate 50 mg/mL Solution 75 mg IM Q28D Qty: 0 0RF
[2022-09-23 03:55] VITALS: BP 136/69; PULSE 96; RESP 20; TEMP 36.7; O2SAT 97; BMI 41.0
--- NOTE | 2022-09-23 04:07 | MHC.EDTECH ---
Patient was incont.of a large amount of liquid stool,This PCT offered her a shower. Patient showered and is now resting comfortable at this time. Patient's clothes are washing in the pod.Rn aware
[2022-09-23] MEDS: LORazepam 1 MG TABLET 2 MG PO (04:14)
[2022-09-23] MEDS: HaloperidoL 5 MG TABLET 10 MG PO (04:14)
[2022-09-23 05:58] VITALS: BP 114/74; PULSE 98; RESP 16; TEMP 36.9; O2SAT 97
--- NOTE | 2022-09-23 05:59 | MHC.EDTECH ---
Patient had a large amount of vomit on self. Patient was cleaned and linen was changed. Rn at bedside
--- NOTE | 2022-09-23 06:02 | PC.NURSE ---
THis RN contacted patient's [facility] staff, spoke to Josefa at [phone] who reported that they will be able to come and pick patient up at 8:00 am.
== END 2022-09-23 10:27 | disposition home or self-care (01) ==
PROVIDERS: Emergency Provider Internal Medicine; PCP Physician Assistant Medical
DX: K52.9 Noninfective gastroenteritis and colitis, unspecified (principal); F41.9 Anxiety disorder, unspecified; R11.2 Nausea with vomiting, unspecified; F25.1 Schizoaffective disorder, depressive type; F43.12 Post-traumatic stress disorder, chronic; F60.3 Borderline personality disorder; F17.210 Nicotine dependence, cigarettes, uncomplicated; F12.90 Cannabis use, unspecified, uncomplicated; Z79.899 Other long term (current) drug therapy
CPT/HCPCS: 99284

== ENCOUNTER 2022-09-23 18:47 | Emergency (ER) | payer OTHER, SELFPAY ==
--- NOTE | 2022-09-23 18:52 | ED.PSYCH ---
HPI - Psych General Chief Complaint: Psychiatric Symptoms Stated Complaint: SI,NO ATTEMPT PER EMS Time Seen by Provider: 09/23/22 18:50 Source: patient and EMS Mode of arrival: EMS Limitations: no limitations History of Present Illness HPI Narrative: 37-year-old female presents to the emergency department for ideations of self-harm. States to have depression and anxiety. MD complaint: suicidal ideation and anxiety Onset (ago): year(s) Duration: constant History of same: Yes Relieving factors: none Context: significant life stressor Associated psychiatric symptoms: depression and suicidal ideation Associated symptoms: denies other symptoms If self harm: admits thoughts of self harm, has plan and has acted on plan Related Data Home Medications Medication Instructions Recorded Confirmed acetaminophen 500 mg tablet 1 tab PO Q6H PRN pain 08/14/22 09/23/22 albuterol sulfate 90 mcg/actuation 2 puff inhalation BID PRN Wheezing 08/14/22 09/23/22 aerosol inhaler (ProAir HFA) benzonatate 100 mg capsule 1 cap PO TID PRN cough 08/14/22 09/23/22 benztropine 0.5 mg tablet 1 tab PO BID 08/14/22 09/23/22 diphenhydramine HCl 50 mg capsule 2 cap PO BEDTIME 08/14/22 09/23/22 (Banophen) duloxetine 60 mg capsule,delayed 1 cap PO QAM 08/14/22 09/23/22 release ferrous sulfate 325 mg (65 mg 1 tab PO QAM 08/14/22 09/23/22 iron) tablet,delayed release fluticasone propionate 230 2 puff inhalation BID 08/14/22 09/23/22 mcg-salmeterol 21 mcg/actuation HFA inhaler (Advair HFA) haloperidol 5 mg tablet 1 tab PO TID PRN Agitation 08/14/22 09/23/22 hydroxyzine pamoate 50 mg capsule 1 cap PO BID PRN Anxiety 08/14/22 09/23/22 lorazepam 1 mg tablet 1 tab PO TID PRN anxiety 08/14/22 09/23/22 nicotine (polacrilex) 2 mg gum 2 mg buccal Q2H PRN Smoking 08/14/22 09/23/22 Cessation omeprazole 20 mg tablet,delayed 20 mg PO DAILY 08/14/22 09/23/22 release ondansetron HCl 4 mg tablet 1 tab PO Q6H PRN nausea/vomiting 08/14/22 09/23/22 prazosin 1 mg capsule 1 cap PO BEDTIME 08/14/22 09/23/22 prazosin 5 mg capsule 3 cap PO BEDTIME 08/14/22 09/23/22 zolpidem 10 mg tablet 1 tab PO BEDTIME 08/14/22 09/23/22 Previous Rx's Medication Instructions Recorded clonidine HCl 0.1 mg tablet 0.1 mg PO TID 30 days #90 tabs 09/01/22 docusate sodium 100 mg capsule 100 mg PO BID 30 days #60 caps 09/01/22 haloperidol decanoate 50 mg/mL 75 mg (1.5 mL) IM Q28D #0 mL 09/01/22 intramuscular solution lithium carbonate 300 mg 300 mg PO DAILY@1600 30 days #30 09/01/22 tablet,extended release tabs trazodone 50 mg tablet 150 mg PO BEDTIME 30 days #90 tabs 09/01/22 Allergies Allergy/AdvReac Type Severity Reaction Status Date / Time carbamazepine [From TEGRETOL] AdvReac Unknown NAUSEA & Verified 09/23/22 03:55 VOMITING Fish Containing Products AdvReac Stomach Verified 09/23/22 03:55 Upset Review of Systems Review of Systems: Constitutional: No Fever, No Chills Cardiovascular: No Chest Pain, No SOB Respiratory: No Cough, No Sputum, No Dyspnea Gastrointestinal: No Nausea, No Vomiting, No Diarrhea Musculoskeletal: No Myalgias Skin: No Skin Lesions, No rash Neuro: No Weakness, No Numbness, No Dizziness, No Headache Psych: positive Anxiety, positive Depression, positive SI Yes all other systems are reviewed and are negative [facility] Past Medical History Attestation statement: The following information was validated with the patient. Source: old records reviewed Medical History Acute post-traumatic stress disorder Adjustment disorder Anxiety Asthma Borderline personality disorder Chronic post-traumatic stress disorder (PTSD) COPD (chronic obstructive pulmonary disease) Depression GERD (gastroesophageal reflux disease) History of electroconvulsive therapy Increased BMI Injury, self-inflicted Intentional self-harm PTSD (post-traumatic stress disorder) Recurrent major depression-severe Schizoaffective disorder Self-harming behavior Suicidal ideation Suicidal ideation Family History Family History Mother Brain cancer Other No family history of cardiac disease Social History Social History Household Members: Other Household Members Other:: nursing home Housing: Assisted Living Facility Housing Other:: nursing home Do you presently have visiting nurse or other home services: No Alcohol intake: never Patient Tobacco Use Status: Current everyday Tobacco user Tobacco use type: Cigarette Cigarette Packs Per Day: 0.5 Cigarettes Per Day: 10.0 Years Smoked: 17 e-Cigarette/Vaping Use: Never Used Second Hand Smoke Exposure: Yes Substance Use Type: Marijuana Advance Directives: No Advance Directives Information Provided: No Healthcare Proxy: No Guardian: No service: No Sexual orientation: Straight/Heterosexual Physical Exam Vital Signs: Vital Signs: Last Vital Signs Temp 98.2 F 09/23/22 18:55 Pulse 114 H 09/23/22 18:55 Resp 18 09/23/22 18:55 BP 126/82 09/23/22 18:55 Pulse Ox 96 09/23/22 18:55 O2 Del Method 09/23/22 18:55 BMI result Body Mass Index 41.0 Appearance: Alert. Oriented X3. Moderate emotional distress. Eyes: PERRLA, No Nystagmus. EOMI. ENT: Pharynx normal. Moist mucous membranes. Neck: Normal inspection. Neck supple. CVS: Normal heart rate and rhythm. Pulses normal. Respiratory: No respiratory distress. Lung sounds clear to auscultation all lobes. Abdomen: Soft and nontender. Skin: Numerous scars to body consistent with prior self-injurious behaviors. No new lacerations at this time. Extremities: No lower extremity edema. No calf tenderness Neuro: No sensory deficit. Cranial nerves 2-12 intact. Course Course Course Narrative: 37-year-old female presents via EMS for suicidal ideation. Patient is well-known to this facility. No new self-injurious wounds noted to her upper extremities or abdomen. Patient states to have significant anxiety and feels suicidal. Patient given 10 mg of Zyprexa p.o.. Will order labs and crisis consult. 03:00. Medically cleared. Care team agrees to discharge this patient to home in the morning. Physician observation at this time. Medications Administered Discontinued Medications Generic Name Dose Route Start Last Admin Trade Name Freq PRN Reason Stop Dose Admin Lorazepam 2 mg 09/23/22 19:25 09/23/22 19:27 Lorazepam 1 Mg Tablet PO 09/23/22 19:26 2 mg ONCE ONE Administration Olanzapine 10 mg 09/23/22 19:25 09/23/22 19:27 Olanzapine 10 Mg Tablet PO 09/23/22 19:26 10 mg ONCE ONE Administration Medical Decision Making Differential Diagnosis Differential Diagnoses: The differential diagnosis associated with the presentation includes Anxiety, depression, suicidal ideation Lab Data MDM Lab Attestation statement: I reviewed the patient's lab results. 09/23/22 20:36 09/23/22 20:36 Labs: Lab Results 09/23/22 09/23/22 09/23/22 Range/Units 19:15 19:46 19:46 WBC (4.8-10.8) X10*3/uL RBC (4.20-5.50) X10*6/uL Hgb (12.0-16.0) g/dl Hct (37.0-47.0) % MCV (80.0-98.0) fL MCH (27.0-33.0) pg MCHC (31.0-35.0) g/dl RDW (11.0-16.0) % Plt Count (160-400) X10*3/uL MPV (9.4-12.3) fL Immature Gran % (Auto) (0.0-0.4) % Neut % (Auto) (45-73) % Lymph % (Auto) (20-40) % [place] % (Auto) (2-11) % Eos % (Auto) (0-4) % Baso % (Auto) (0-2) % Lymph # (Auto) (1.2-4.9) X10*3/uL [place] # (Auto) (0.1-1.2) X10*3/uL Eos # (Auto) (0.0-0.4) X10*3/uL Baso # (Auto) (0.0-0.2) X10*3/uL Abs Immat Gran (auto) (0.00-0.03) X10*3/uL Absolute Neuts (auto) (2.0-8.3) x10*3/uL Absolute Nucleated RBC (0.0-0.012) X10*3/uL Nucleated RBC % (auto) (0.0-0.2) /100WBC Sodium (135-145) mmol/L Potassium (3.3-5.1) mmol/L Chloride (96-108) mmol/L Carbon Dioxide (22-29) mmol/L Anion Gap (12-20) BUN (9-16) mg/dL Creatinine (0.5-1.4) mg/dL Estim Creat Clear Calc Estimated GFR Random Glucose (60-115) mg/dL Calcium (8.4-10.2) mg/dL Total Bilirubin (0.0-1.0) mg/dL AST (5-31) U/L ALT (0-31) U/L Alkaline Phosphatase (39-117) U/L Total Protein (6.5-8.0) g/dL Albumin (3.5-5.0) g/dL Urine Color Yellow Urine Appearance Cloudy Urine pH 6.0 (5.0-9.0) Ur Specific [place] 1.015 (1.005-1.025) Urine Protein Negative (Neg-Trace) mg/dL Urine Glucose (UA) Negative (Negative) mg/dL Urine Ketones 15 (Negative) mg/dL Urine Blood Trace H (Negative) Urine Nitrite Negative (Negative) Ur Leukocyte Esterase Trace H (Negative) Urine RBC 0-2 (0-2) /HPF Urine WBC 0-5 (0-5) /HPF Ur Squamous Epith Cells 11-20 (0-2) /HPF Urine Bacteria Trace (None Seen) Hyaline Casts 0-2 (0-2) /LPF Urine Test (NEGATIVE) Salicylates (15-30) mg/dL Urine Opiates Screen Not Detected (Not Detect) Urine Fentanyl Screen POSITIVE H (Not Detect) Acetaminophen (<30) mcg/mL Ur Barbiturates Screen Not Detected (Not Detect) Ur Phencyclidine Scrn Not Detected (Not Detect) Ur Amphetamines Screen Not Detected (Not Detect) U Benzodiazepines Scrn Not Detected (Not Detect) [place] (0.60-1.20) mmol/L Urine Cocaine Screen Not Detected (Not Detect) U Marijuana (THC) Screen POSITIVE H (Not Detect) Ethyl Alcohol mg/dL COVID-19 (RAFAL) Negative (Negative) COVID-19 Clin Com See Note 09/23/22 09/23/22 09/23/22 Range/Units 19:46 20:36 20:36 WBC (4.8-10.8) X10*3/uL RBC (4.20-5.50) X10*6/uL Hgb (12.0-16.0) g/dl Hct (37.0-47.0) % MCV (80.0-98.0) fL MCH (27.0-33.0) pg MCHC (31.0-35.0) g/dl RDW (11.0-16.0) % Plt Count (160-400) X10*3/uL MPV (9.4-12.3) fL Immature Gran % (Auto) (0.0-0.4) % Neut % (Auto) (45-73) % Lymph % (Auto) (20-40) % [place] % (Auto) (2-11) % Eos % (Auto) (0-4) % Baso % (Auto) (0-2) % Lymph # (Auto) (1.2-4.9) X10*3/uL [place] # (Auto) (0.1-1.2) X10*3/uL Eos # (Auto) (0.0-0.4) X10*3/uL Baso # (Auto) (0.0-0.2) X10*3/uL Abs Immat Gran (auto) (0.00-0.03) X10*3/uL Absolute Neuts (auto) (2.0-8.3) x10*3/uL Absolute Nucleated RBC (0.0-0.012) X10*3/uL Nucleated RBC % (auto) (0.0-0.2) /100WBC Sodium 138 (135-145) mmol/L Potassium 3.3 D (3.3-5.1) mmol/L Chloride 108 (96-108) mmol/L Carbon Dioxide 18 L (22-29) mmol/L Anion Gap 15 (12-20) BUN 12 (9-16) mg/dL Creatinine 0.70 (0.5-1.4) mg/dL Estim Creat Clear Calc 110.0 Estimated GFR > 60 Random Glucose 94 (60-115) mg/dL Calcium 8.5 (8.4-10.2) mg/dL Total Bilirubin 0.4 (0.0-1.0) mg/dL AST 11 (5-31) U/L ALT 10 (0-31) U/L Alkaline Phosphatase 59 (39-117) U/L Total Protein 6.1 L (6.5-8.0) g/dL Albumin 3.9 (3.5-5.0) g/dL Urine Color Urine Appearance Urine pH (5.0-9.0) Ur Specific [place] (1.005-1.025) Urine Protein (Neg-Trace) mg/dL Urine Glucose (UA) (Negative) mg/dL Urine Ketones (Negative) mg/dL Urine Blood (Negative) Urine Nitrite (Negative) Ur Leukocyte Esterase (Negative) Urine RBC (0-2) /HPF Urine WBC (0-5) /HPF Ur Squamous Epith Cells (0-2) /HPF Urine Bacteria (None Seen) Hyaline Casts (0-2) /LPF Urine Test NEGATIVE (NEGATIVE) Salicylates < 5.0 L (15-30) mg/dL Urine Opiates Screen (Not Detect) Urine Fentanyl Screen (Not Detect) Acetaminophen < 17 (<30) mcg/mL Ur Barbiturates Screen (Not Detect) Ur Phencyclidine Scrn (Not Detect) Ur Amphetamines Screen (Not Detect) U Benzodiazepines Scrn (Not Detect) [place] (0.60-1.20) mmol/L Urine Cocaine Screen (Not Detect) U Marijuana (THC) Screen (Not Detect) Ethyl Alcohol < 10 mg/dL COVID-19 (RAFAL) (Negative) COVID-19 Clin Com 09/23/22 09/23/22 Range/Units 20:36 20:36 WBC 6.6 (4.8-10.8) X10*3/uL RBC 4.18 L (4.20-5.50) X10*6/uL Hgb 12.4 (12.0-16.0) g/dl Hct 37.4 (37.0-47.0) % MCV 89.5 (80.0-98.0) fL MCH 29.7 (27.0-33.0) pg MCHC 33.2 (31.0-35.0) g/dl RDW 13.0 (11.0-16.0) % Plt Count 185 (160-400) X10*3/uL MPV 11.0 (9.4-12.3) fL Immature Gran % (Auto) 0.2 (0.0-0.4) % Neut % (Auto) 82.9 H (45-73) % Lymph % (Auto) 12.3 L (20-40) % [place] % (Auto) 4.6 (2-11) % Eos % (Auto) 0.0 (0-4) % Baso % (Auto) 0.0 (0-2) % Lymph # (Auto) 0.8 L (1.2-4.9) X10*3/uL [place] # (Auto) 0.3 (0.1-1.2) X10*3/uL Eos # (Auto) 0.0 (0.0-0.4) X10*3/uL Baso # (Auto) 0.0 (0.0-0.2) X10*3/uL Abs Immat Gran (auto) 0.01 (0.00-0.03) X10*3/uL Absolute Neuts (auto) 5.5 (2.0-8.3) x10*3/uL Absolute Nucleated RBC 0.000 (0.0-0.012) X10*3/uL Nucleated RBC % (auto) 0.0 (0.0-0.2) /100WBC Sodium (135-145) mmol/L Potassium (3.3-5.1) mmol/L Chloride (96-108) mmol/L Carbon Dioxide (22-29) mmol/L Anion Gap (12-20) BUN (9-16) mg/dL Creatinine (0.5-1.4) mg/dL Estim Creat Clear Calc Estimated GFR Random Glucose (60-115) mg/dL Calcium (8.4-10.2) mg/dL Total Bilirubin (0.0-1.0) mg/dL AST (5-31) U/L ALT (0-31) U/L Alkaline Phosphatase (39-117) U/L Total Protein (6.5-8.0) g/dL Albumin (3.5-5.0) g/dL Urine Color Urine Appearance Urine pH (5.0-9.0) Ur Specific [place] (1.005-1.025) Urine Protein (Neg-Trace) mg/dL Urine Glucose (UA) (Negative) mg/dL Urine Ketones (Negative) mg/dL Urine Blood (Negative) Urine Nitrite (Negative) Ur Leukocyte Esterase (Negative) Urine RBC (0-2) /HPF Urine WBC (0-5) /HPF Ur Squamous Epith Cells (0-2) /HPF Urine Bacteria (None Seen) Hyaline Casts (0-2) /LPF Urine Test (NEGATIVE) Salicylates (15-30) mg/dL Urine Opiates Screen (Not Detect) Urine Fentanyl Screen (Not Detect) Acetaminophen (<30) mcg/mL Ur Barbiturates Screen (Not Detect) Ur Phencyclidine Scrn (Not Detect) Ur Amphetamines Screen (Not Detect) U Benzodiazepines Scrn (Not Detect) [place] 0.30 L (0.60-1.20) mmol/L Urine Cocaine Screen (Not Detect) U Marijuana (THC) Screen (Not Detect) Ethyl Alcohol mg/dL COVID-19 (RAFAL) (Negative) COVID-19 Clin Com External Record Review External record reviewed: Inpatient record, Outpatient record and Prior outpatient labs Social Determinants Patient?s care significantly limited by Social Determinants of Health including: Other Social Determinant of Health Discharge Plan Discharge Clinical Impression: Depression, Acute anxiety Patient Disposition: Home, Self-Care Instructions: Anxiety (ED), Depression (ED) Additional Instructions: Follow-up with outpatient psychiatry as scheduled. Thank you for choosing this emergency department for evaluation. Please follow-up with primary care physician as needed. Return to the emergency department for any new, concerning, or worsening symptoms. Prescriptions: No Action benztropine 0.5 mg tablet 1 tab PO BID haloperidol 5 mg tablet 1 tab PO TID PRN (Reason: Agitation) diphenhydramine HCl [Banophen] 50 mg capsule 2 cap PO BEDTIME prazosin 1 mg capsule 1 cap PO BEDTIME hydroxyzine pamoate 50 mg capsule 1 cap PO BID PRN (Reason: Anxiety) zolpidem 10 mg tablet 1 tab PO BEDTIME ferrous sulfate 325 mg (65 mg iron) tablet,delayed release (DR/EC) 1 tab PO QAM duloxetine 60 mg capsule,delayed release(DR/EC) 1 cap PO QAM ondansetron HCl 4 mg tablet 1 tab PO Q6H PRN (Reason: nausea/vomiting) acetaminophen 500 mg tablet 1 tab PO Q6H PRN (Reason: pain) prazosin 5 mg capsule 3 cap PO BEDTIME benzonatate 100 mg capsule 1 cap PO TID PRN (Reason: cough) lorazepam 1 mg tablet 1 tab PO TID PRN (Reason: anxiety) albuterol sulfate [ProAir HFA] 90 mcg/actuation HFA aerosol inhaler 2 puff inhalation BID PRN (Reason: Wheezing) Advair HFA 230-21 mcg/actuation HFA aerosol inhaler 2 puff inhalation BID nicotine (polacrilex) 2 mg Gum 2 mg BUCCAL Q2H PRN (Reason: Smoking Cessation) omeprazole 20 mg Tablet,Delayed Release (Dr/Ec) 20 mg PO DAILY clonidine HCl 0.1 mg Tablet 0.1 mg PO TID 30 Days Qty: 90 0RF Protocol: Hold for SBP< HOLD for SBP < : 90 trazodone 50 mg Tablet 150 mg PO BEDTIME 30 Days Qty: 90 0RF lithium carbonate 300 mg Tablet Extended Release 300 mg PO DAILY@1600 30 Days Qty: 30 0RF Rx Instructions: HOLD NIGHT BEFORE ECT docusate sodium 100 mg Capsule 100 mg PO BID 30 Days Qty: 60 0RF Rx Instructions: HOLD FOR LOOSE STOOL haloperidol decanoate 50 mg/mL Solution 75 mg IM Q28D Qty: 0 0RF Interventions: [place]-Suicide Risk Severity Scale Last Done: 09/23/22 20:29
[2022-09-23 18:55] VITALS: BP 126/82; PULSE 114; RESP 18; TEMP 36.8; O2SAT 96; BMI 41.0
[2022-09-23] MEDS: OLANZapine 10 MG TABLET PO (19:27)
[2022-09-23] MEDS: LORazepam 1 MG TABLET 2 MG PO (19:27)
[2022-09-23 19:33] LABS: COVID-19 Test Negative (Negative); IDNOW Serial# 6674DD1D
[2022-09-23 20:19] LABS: Appearance Urine Cloudy; Color Urine Yellow; Glucose Urine UA Negative (Negative); Leukocyte Esterase Urine Trace (Negative); Nitrite Urine Negative (Negative); Specific Gravity - Urine 1.015 (1.005-1.025); UMIC TRIGGER UA YES; Urine Blood Trace (Negative); Urine Ketones 15 mg/dL (Negative); Urine Protein Negative (Neg-Trace)
[2022-09-23 20:22] LABS: Bacteria Urine Trace (None Seen); Hyaline Casts Urine 0-2 /LPF (0-2); RBC Urine 0-2 /HPF (0-2); WBC Urine 0-5 /HPF (0-5)
[2022-09-23 20:23] LABS: UPreg QC Valid YES; Urine Pregnancy NEGATIVE (NEGATIVE)
[2022-09-23 20:28] LABS: Amphetamine Screen Urine Not Detected (Not Detect); Barbiturates, Urine Not Detected (Not Detect); Benzodiazepines Screen Urine Not Detected (Not Detect); Cannabinoid Screen Urine POSITIVE (Not Detect); Cocaine Screen Urine Not Detected (Not Detect); Fentanyl, urine POSITIVE (Not Detect); Opiate Screen Urine Not Detected (Not Detect); Phencyclidine Screen Urine Not Detected (Not Detect)
[2022-09-23 20:50] LABS: MANUAL DIFF FLAG NO
[2022-09-23 20:51] LABS: Hematocrit 37.4 % (37.0-47.0); Hemoglobin 12.4 g/dl (12.0-16.0); Imm Gran Abs Auto 0.01 X10*3/uL (0.00-0.03); Imm Gran Pct Auto 0.2 % (0.0-0.4); Lymphocytes Absolute Auto 0.8 X10*3/uL (1.2-4.9); Lymphocytes Percent Auto 12.3 % (20-40); Mean Corpuscular HGB Conc 33.2 g/dl (31.0-35.0); Mean Corpuscular Hemoglobin 29.7 pg (27.0-33.0); Mean Corpuscular Volume 89.5 fL (80.0-98.0); Monocytes Absolute Auto 0.3 X10*3/uL (0.1-1.2); Monocytes Percent Auto 4.6 % (2-11); Neutrophils Absolute Auto 5.5 x10*3/uL (2.0-8.3); Neutrophils Percent Auto 82.9 % (45-73); Platelet Count 185 X10*3/uL (160-400); Red Blood Count 4.18 X10*6/uL (4.20-5.50); White Blood Count 6.6 X10*3/uL (4.8-10.8)
[2022-09-23 21:22] LABS: Ethanol < 10 mg/dL
[2022-09-23 21:33] LABS: Acetaminophen LAB < 17 mcg/mL (<30); Salicylate < 5.0 mg/dL (15-30)
[2022-09-23 23:35] LABS: Alanine Aminotransferase 10 U/L (0-31); Albumin Level 3.9 g/dL (3.5-5.0); Alkaline Phosphatase 59 U/L (39-117); Anion Gap 15 (12-20); Aspartate Amino Transferase 11 U/L (5-31); Bilirubin Total 0.4 mg/dL (0.0-1.0); Blood Urea Nitrogen 12 mg/dL (9-16); Calcium 8.5 mg/dL (8.4-10.2); Carbon Dioxide 18 mmol/L (22-29); Chloride 108 mmol/L (96-108); Estimated Glomerular Filt Rate > 60; Glucose Random 94 mg/dL (60-115); Potassium 3.3 mmol/L (3.3-5.1); Sodium 138 mmol/L (135-145); Total Protein 6.1 g/dL (6.5-8.0)
[2022-09-24 03:41] VITALS: BP 127/77; PULSE 81; RESP 17; TEMP 36.7; O2SAT 96
--- NOTE | 2022-09-24 07:11 | PC.NURSE ---
Patient slept though the night, + effect from olanzapine 10 mg PO and Ativan 2 mg PO, no distress observed/reported, med rec completed/approved/MAR active, patient was assessed by care team, disposition HA follow up, per provider if patient elects to go home, discharge paper id ready, incoming RN made aware of the plan, patient is observed on 1:1 for safety, VSS, no behavior concerns at this time, will continue to monitor.
[2022-09-24 08:09] VITALS: BP 128/89; PULSE 108; RESP 18; TEMP 36.7; O2SAT 96
[2022-09-24] MEDS: DULoxetine HCl 60 MG CAPSULE.DR PO (08:12)
[2022-09-24] MEDS: Ferrous Sulfate 324 MG TABLET.DR PO (08:13)
[2022-09-24] MEDS: Docusate Sodium 100 MG CAPSULE PO (08:13)
[2022-09-24] MEDS: Omeprazole 20 MG CAPSULE.DR PO (08:13)
[2022-09-24] MEDS: cloNIDine HCL 0.1 MG TABLET PO (08:14)
[2022-09-24] MEDS: Benztropine Mesylate 0.5 MG TABLET PO (08:15)
== END 2022-09-24 09:25 | disposition home or self-care (01) ==
PROVIDERS: Nurse Practitioner Family; Emergency Provider Emergency Medicine Emergency Medical Services; PCP Pediatrics
DX: F32.A Depression, unspecified (principal); F41.9 Anxiety disorder, unspecified; R45.851 Suicidal ideations; Z20.822 Contact with and (suspected) exposure to COVID-19; F43.10 Post-traumatic stress disorder, unspecified; F43.20 Adjustment disorder, unspecified; F60.3 Borderline personality disorder; Z91.52 Personal history of nonsuicidal self-harm; F25.9 Schizoaffective disorder, unspecified; Z79.899 Other long term (current) drug therapy
CPT/HCPCS: 36415; 80053; 80143; 80178; 80179; 80307; 81001; 81025; 82077; 85025; 87635; 99285; S9485

== ENCOUNTER 2022-09-25 06:00 | Day surgery (SDC) | payer OTHER, SELFPAY ==
[2022-09-25] VITALS (8 sets, daily range): BP systolic 127–156; BP diastolic 69–102; PULSE 94–102; RESP 16–23; TEMP 36.1–36.8; O2SAT 91–96; BMI 45.4
[2022-09-25 06:38] LABS: IDNOW Serial# BCCEAD1C
[2022-09-25 06:39] LABS: COVID-19 Test Negative (Negative)
--- NOTE | 2022-09-25 06:48 | HO.ANESPROP2 ---
[facility] Active Problems Active Problems: All Active Problems (Updated 09/25/22 @ 00:00 by Adiel Sevilla) Injury of ligament of right knee (Acute) Sprain of anterior cruciate ligament of right knee (Acute) Hernia (Chronic) Schizoaffective disorder, depressive type (Chronic) Sprain of left foot (Acute) COVID-19 (Acute) COVID-19 (Acute) Chronic post-traumatic stress disorder (PTSD) (Chronic) Increased BMI (Acute) GERD (gastroesophageal reflux disease) (Acute) Borderline personality disorder (Chronic) Past Medical History Medical History Acute post-traumatic stress disorder Adjustment disorder Anxiety Asthma Borderline personality disorder Chronic post-traumatic stress disorder (PTSD) COPD (chronic obstructive pulmonary disease) Depression GERD (gastroesophageal reflux disease) History of electroconvulsive therapy Increased BMI Injury, self-inflicted Intentional self-harm PTSD (post-traumatic stress disorder) Recurrent major depression-severe Schizoaffective disorder Self-harming behavior Suicidal ideation Suicidal ideation Family History Family History Mother Brain cancer Other No family history of cardiac disease Family history of problems with anesthesia: No Surgical History History of Problems with Anesthesia: No Social History Social History Household Members: Other Household Members Other:: residential Housing: Assisted Living Facility Housing Other:: residential Do you presently have visiting nurse or other home services: No Alcohol intake: unknown Patient Tobacco Use Status: Current everyday Tobacco user Tobacco use type: Cigarette Cigarette Packs Per Day: 0.5 Cigarettes Per Day: 10.0 Years Smoked: 17 e-Cigarette/Vaping Use: Never Used Second Hand Smoke Exposure: Yes Substance Use Type: Marijuana Advance Directives: No Advance Directives Information Provided: Yes service: No Sexual orientation: Straight/Heterosexual Meds Allergies Allergy/AdvReac Type Severity Reaction Status Date / Time carbamazepine [From TEGRETOL] AdvReac Unknown NAUSEA & Verified 09/23/22 03:55 VOMITING Fish Containing Products AdvReac Stomach Verified 09/23/22 03:55 Upset Active Medications: Current Medications Lactated Ringer's (Lr) 1,000 mls @ 50 mls/hr IVCONT .Q20H [facility] Home Medications Medication Instructions Recorded Confirmed Last Taken Type acetaminophen 500 mg tablet 1 tab PO Q6H PRN pain 08/14/22 09/23/22 Unknown History albuterol sulfate 90 mcg/actuation 2 puff inhalation BID PRN Wheezing 08/14/22 09/23/22 Unknown History aerosol inhaler (ProAir HFA) benzonatate 100 mg capsule 1 cap PO TID PRN cough 08/14/22 09/23/22 Unknown History benztropine 0.5 mg tablet 1 tab PO BID 08/14/22 09/23/22 Unknown History diphenhydramine HCl 50 mg capsule 2 cap PO BEDTIME 08/14/22 09/23/22 Unknown History (Banophen) duloxetine 60 mg capsule,delayed 1 cap PO QAM 08/14/22 09/23/22 Unknown History release ferrous sulfate 325 mg (65 mg 1 tab PO QAM 08/14/22 09/23/22 Unknown History iron) tablet,delayed release fluticasone propionate 230 2 puff inhalation BID 08/14/22 09/23/22 Unknown History mcg-salmeterol 21 mcg/actuation HFA inhaler (Advair HFA) haloperidol 5 mg tablet 1 tab PO TID PRN Agitation 08/14/22 09/23/22 Unknown History hydroxyzine pamoate 50 mg capsule 1 cap PO BID PRN Anxiety 08/14/22 09/23/22 Unknown History lorazepam 1 mg tablet 1 tab PO TID PRN anxiety 08/14/22 09/23/22 Unknown History nicotine (polacrilex) 2 mg gum 2 mg buccal Q2H PRN Smoking 08/14/22 09/23/22 Unknown History Cessation omeprazole 20 mg tablet,delayed 20 mg PO DAILY 08/14/22 09/23/22 Unknown History release ondansetron HCl 4 mg tablet 1 tab PO Q6H PRN nausea/vomiting 08/14/22 09/23/22 Unknown History prazosin 1 mg capsule 1 cap PO BEDTIME 08/14/22 09/23/22 Unknown History prazosin 5 mg capsule 3 cap PO BEDTIME 08/14/22 09/23/22 Unknown History zolpidem 10 mg tablet 1 tab PO BEDTIME 08/14/22 09/23/22 Unknown History Exam Exam Date and Time: September 25, 2022 06 Height,Weight and Vital Signs: Height 4 ft 11 in Weight 102.058 kg Last Vital Signs Temp 97 F 09/25/22 06:36 Pulse 99 09/25/22 06:36 Resp 18 09/25/22 06:36 BP 145/91 H 09/25/22 06:36 Pulse Ox 96 09/25/22 06:36 O2 Del Method 09/25/22 06:36 Pertinent Lab Results Pertinent Lab Results: Laboratory Tests 09/25/22 06:13 COVID-19 (RAFAL) Negative COVID-19 Clin Com See Note Airway Mallampati Class: II (Missing multiple, denies any loose) TM Dist: >3cm Neck ROM: Full Heart: rrr Lungs: cta Assessment and Plan Assessment Anesthesia Assessment: Anesthesia Plan Discussed and Chart Reviewed Final Anesthetic Review Family History of Problems with Anesthesia: No History of Problems with Anesthesia: No NPO: Yes ASA Class: III Final Preanesthetic Review: No Changes in Pt Med Stat, Meds/Allgs Chart Reviewed and Consent Obtained/Reviewed Patient Risk: Intermediate Procedure Risk: Intermediate Anesthetic Plan Anesthetic Plan: GA Disposition: Standard PACU
--- NOTE | 2022-09-25 07:27 | P.HPSUR_ITS ---
Pre-Procedural Eval Section A Date of Service: 09/25/22 Changes since office visit: Yes Cold of Flu in the past 2 weeks, Yes New Medical Problems and Yes Patient answered all questions; No Changes in Medication The History & Physical has been completed within 30 days and I have reviewed it .: Yes Section B Chief Complaint: Major depressive disorder, recurrent, Details of Present Illness: recurrent depression ptsd Relevant Social History: Tobacco Use Present Medications: see Short Stay Collaborative assessment Medical History: Significant History (ASTHMA ) History of Previous Operations: No relevant previous surgery (ECT) Allergies: Allergies Allergy/AdvReac Type Severity Reaction Status Date / Time carbamazepine [From TEGRETOL] AdvReac Unknown NAUSEA & Verified 09/23/22 03:55 VOMITING Fish Containing Products AdvReac Stomach Verified 09/23/22 03:55 Upset Review of Systems Sugical H&P ROS: Negative: Cardiovascular and Yes, Specify: Respiratory (OCC COUGH SOB ) and Psychiatric (ANXIETY DYSPHORIA PASSIVE SI) Exam Surgical H&P Exam: Normal: Heart and Normal: Lungs (CLEAR) and Significant Findings: Skin (SUPERFICIAL LACERATIONS ) Plan Diagnosis/Plan: Unchanged I have reviewed the history and physical and performed a pertinent physical examination on my patient. No changes have occurred unless specified. Time Spent With Patient Time: Total time managing care of this patient today ____ minutes.
--- NOTE | 2022-09-25 19:56 | HO.ECTPROC ---
ECT Procedure Note Diagnosis/Treatment Date of Service: 09/25/22 Diagnosis: Major Depressive Disorder Current Treatment Number: 12 Treatment: Maintenance Interval Clinical Notes: Patient anxious dysphoric feels ECT helpful in diminishing PTSD and depressive symptoms will continue to try a close maintenance schedule Time: Total time managing care of this patient today ____ minutes. ECT Settings Device: THYMATRON DGx Electrode Placement: Bitemporal Program/Pulse Width: 0.50 Energy Percent: 100 Seizure Duration By EEG (in seconds): 12 Medications Administration General Anesthetic: Etomidate (16) Muscle Relaxant: Succinylcholine (100) Ancillary Medications Analgesics: Torodol - Pre ECT Anti-emetics: Zofran - Pre ECT Miscillaneous Medications: Propofol Airway Management Airway Management: Bag Mask Ventilation Treatment Recommendations Notes: lower etomidate to 12 mg if possible hyperventilate short sz
== END 2022-09-25 09:30 | disposition home or self-care (01) ==
PROVIDERS: PCP Psychiatry & Neurology Psychiatry; Visit Provider Psychiatry & Neurology Psychiatry
PROC: (CPT 90870; principal; 2022-09-25 08:30)
DX: F33.2 Major depressive disorder, recurrent severe without psychotic features (principal); F60.3 Borderline personality disorder; F43.12 Post-traumatic stress disorder, chronic; K21.9 Gastro-esophageal reflux disease without esophagitis; J44.9 Chronic obstructive pulmonary disease, unspecified; Z79.51 Long term (current) use of inhaled steroids; Z79.899 Other long term (current) drug therapy; Z88.8 Allergy status to other drugs, medicaments and biological substances; Z20.822 Contact with and (suspected) exposure to COVID-19; F17.210 Nicotine dependence, cigarettes, uncomplicated
CPT/HCPCS: 87635; 90870; J0330; J1642; J1885; J2405

== ENCOUNTER 2022-09-26 18:53 | Emergency (ER) | payer OTHER, SELFPAY ==
[2022-09-26 19:22] VITALS: BP 113/79; PULSE 103; RESP 17; TEMP 36.9; O2SAT 97; BMI 41.0
[2022-09-26] MEDS: LORazepam 1 MG TABLET 2 MG PO (19:36)
[2022-09-26] MEDS: OLANZapine 10 MG TABLET PO (19:37)
[2022-09-26 19:58] LABS: COVID-19 Test Negative (Negative); IDNOW Serial# 6674DD1D
--- NOTE | 2022-09-26 21:00 | ED.PSYCH ---
HPI - Psych General Chief Complaint: Psychiatric Symptoms <JUANITO Jones - Last Filed: 09/27/22 18:02> Stated Complaint: CRISIS/SI PER EMS <JUANITO Jones Last Filed: 09/27/22 18:02> Time Seen by Provider: 09/26/22 19:17 <JUANITO Jones - Last Filed: 09/27/22 18:02> Source: patient <JUANITO Jones - Last Filed: 09/27/22 18:02> Mode of arrival: ambulatory <JUANITO Jones - Last Filed: 09/27/22 18:02> Limitations: no limitations <JUANITO Jones Last Filed: 09/27/22 18:02> History of Present Illness HPI Narrative: 37-year-old female history of depression presents to ED for self cutting of both arms due to depression. Patient states she is depressed because this time this year her sister was murdered and now the court cases started to begin so patient got depressed and started cutting her arms. Patient has done this in the past before. Patient has plans to harm herself. Patient will like crisis evaluation <JUANITO Jones - Last Filed: 09/27/22 18:02> Related Data Home Medications: Home Medications Medication Instructions Recorded Confirmed acetaminophen 500 mg tablet 1 tab PO Q6H PRN pain 08/14/22 09/26/22 albuterol sulfate 90 mcg/actuation 2 puff inhalation BID PRN Wheezing 08/14/22 09/26/22 aerosol inhaler (ProAir HFA) benzonatate 100 mg capsule 1 cap PO TID PRN cough 08/14/22 09/26/22 benztropine 0.5 mg tablet 1 tab PO BID 08/14/22 09/26/22 diphenhydramine HCl 50 mg capsule 2 cap PO BEDTIME 08/14/22 09/26/22 (Banophen) duloxetine 60 mg capsule,delayed 1 cap PO QAM 08/14/22 09/26/22 release ferrous sulfate 325 mg (65 mg 1 tab PO QAM 08/14/22 09/26/22 iron) tablet,delayed release fluticasone propionate 230 2 puff inhalation BID 08/14/22 09/26/22 mcg-salmeterol 21 mcg/actuation HFA inhaler (Advair HFA) haloperidol 5 mg tablet 1 tab PO TID PRN Agitation 08/14/22 09/26/22 hydroxyzine pamoate 50 mg capsule 1 cap PO BID PRN Anxiety 08/14/22 09/26/22 lorazepam 1 mg tablet 1 tab PO TID PRN anxiety 08/14/22 09/26/22 nicotine (polacrilex) 2 mg gum 2 mg buccal Q2H PRN Smoking 08/14/22 09/26/22 Cessation omeprazole 20 mg tablet,delayed 20 mg PO DAILY 08/14/22 09/26/22 release ondansetron HCl 4 mg tablet 1 tab PO Q6H PRN nausea/vomiting 08/14/22 09/26/22 prazosin 1 mg capsule 1 cap PO BEDTIME 08/14/22 09/26/22 prazosin 5 mg capsule 3 cap PO BEDTIME 08/14/22 09/26/22 zolpidem 10 mg tablet 1 tab PO BEDTIME 08/14/22 09/26/22 Previous Rx's Medication Instructions Recorded clonidine HCl 0.1 mg tablet 0.1 mg PO TID 30 days #90 tabs 09/01/22 docusate sodium 100 mg capsule 100 mg PO BID 30 days #60 caps 09/01/22 haloperidol decanoate 50 mg/mL 75 mg (1.5 mL) IM Q28D #0 mL 09/01/22 intramuscular solution lithium carbonate 300 mg 300 mg PO DAILY@1600 30 days #30 09/01/22 tablet,extended release tabs trazodone 50 mg tablet 150 mg PO BEDTIME 30 days #90 tabs 09/01/22 <JUANITO Jones - Last Filed: 09/27/22 18:02> Allergies/Adverse Reactions: Allergies Allergy/AdvReac Type Severity Reaction Status Date / Time carbamazepine [From TEGRETOL] AdvReac Unknown NAUSEA & Verified 09/23/22 03:55 VOMITING Fish Containing Products AdvReac Stomach Verified 09/23/22 03:55 Upset <JUANITO Jones - Last Filed: 09/27/22 18:02> Review of Systems Review of Systems: Depressed. <JUANITO Jones - Last Filed: 09/27/22 18:02> Yes all other systems are reviewed and are negative <JUANITO Jones - Last Filed: 09/27/22 18:02> [facility] Past Medical History Medical History: Medical History Acute post-traumatic stress disorder Adjustment disorder Anxiety Asthma Borderline personality disorder Chronic post-traumatic stress disorder (PTSD) COPD (chronic obstructive pulmonary disease) Depression GERD (gastroesophageal reflux disease) History of electroconvulsive therapy Increased BMI Injury, self-inflicted Intentional self-harm PTSD (post-traumatic stress disorder) Recurrent major depression-severe Schizoaffective disorder Self-harming behavior Suicidal ideation Suicidal ideation <JUANITO Jones - Last Filed: 09/27/22 18:02> Family History Family History: Family History Mother Brain cancer Other No family history of cardiac disease <JUANITO Jones - Last Filed: 09/27/22 18:02> Social History Social History: Social History Household Members: Other Household Members Other:: care home Housing: Assisted Living Facility Housing Other:: care home Do you presently have visiting nurse or other home services: No Alcohol intake: unknown Patient Tobacco Use Status: Current everyday Tobacco user Tobacco use type: Cigarette Cigarette Packs Per Day: 0.5 Cigarettes Per Day: 10.0 Years Smoked: 17 e-Cigarette/Vaping Use: Never Used Second Hand Smoke Exposure: Yes Substance Use Type: Marijuana Advance Directives: No Advance Directives Information Provided: No service: No Sexual orientation: Straight/Heterosexual <JUANITO Jones - Last Filed: 09/27/22 18:02> Physical Exam Vital Signs: Vital Signs: Last Vital Signs Temp 97.4 F 09/27/22 06:40 Pulse 93 09/27/22 06:40 Resp 17 09/27/22 06:40 BP 129/81 09/27/22 06:40 Pulse Ox 97 09/27/22 06:40 O2 Del Method 09/27/22 06:40 BMI result Body Mass Index 41.0 <JUANITO Jones - Last Filed: 09/27/22 18:02> Vital Signs: Last Vital Signs Temp 97.4 F 09/27/22 06:40 Pulse 93 09/27/22 06:40 Resp 17 09/27/22 06:40 BP 129/81 09/27/22 06:40 Pulse Ox 97 09/27/22 06:40 O2 Del Method 09/27/22 06:40 BMI result Body Mass Index 41.0 <Danilo Foster MD - Last Filed: 09/27/22 14:32> Const: General: cooperative, healthy appearing, comfortable, no acute distress, well developed, alert, awake and Physically active <JUANITO Jones Last Filed: 09/27/22 18:02> Orientation/consciousness: oriented to person, oriented to place, oriented to time and patient oriented x3 <JUANITO Jones Last Filed: 09/27/22 18:02> HEENT: Head: Yes normal to inspection, Yes No palpable skull fracture present, Yes normocephalic, Yes atraumatic and No abrasion <JUANITO Jones Last Filed: 09/27/22 18:02> Eyes: General: appearance normal, both eyes and all related structures <JUANITO Jones Last Filed: 09/27/22 18:02> Neck: Neck: Yes normal visual inspection, Yes full ROM, Yes no lymphadenopathy, Yes no meningeal signs, Yes trachea midline, Yes supple, No anterior neck swelling and No tender <JUANITO Jones Last Filed: 09/27/22 18:02> Chest: Chest palpation & inspection: normal inspection of the chest and normal palpation of entire chest wall <JUANITO Jones Last Filed: 09/27/22 18:02> Resp: Effort & Inspection: normal respiratory effort and able to speak in complete sentences <JUANITO Jones Last Filed: 09/27/22 18:02> Auscultation: clear to auscultation bilaterally <JUANITO Jones Last Filed: 09/27/22 18:02> Cardio: Jugular venous distension: no JVD <JUANITO Jones Last Filed: 09/27/22 18:02> Heart sounds: S1 normal heart sound present and S2 normal heart sound present <JUANITO Jones Last Filed: 09/27/22 18:02> GI: Inspection: Yes normal to inspection and No abdominal wall ecchymosis <JUANITO Jones Last Filed: 09/27/22 18:02> Palpation (GI): Soft to palpation, not firm, nontender, no guarding and not rigid <JUANITO Jones Last Filed: 09/27/22 18:02> : General: No CVA tenderness and Yes no CVA tenderness <JUANITO Jones Last Filed: 09/27/22 18:02> Back/Spine/Pelvis: Back: no CVA tenderness, No CVA tenderness and No back tenderness <JUANITO Jones Last Filed: 09/27/22 18:02> Skin: General skin exam: no rashes or lesions noted and elasticity normal <JUANITO Jones - Last Filed: 09/27/22 18:02> Neuro: General: oriented to person, oriented to place, oriented to time, patient oriented x3, gait normal, tone normal, moves all extremities, Normal light touch and pain sensation, no meningeal signs, no focal motor deficits, CN's II-XI intact bilaterally and normal sensation to monofilament <JUANITO Jones - Last Filed: 09/27/22 18:02> Extrem: Other: Bilateral forearm positive for self cutting. <JUANITO Jones - Last Filed: 09/27/22 18:02> General: Yes normal to inspection and Yes full ROM <JUANITO Jones - Last Filed: 09/27/22 18:02> Psych: Appearance: grossly normal, well kempt and not disheveled <JUANITO Jones Last Filed: 09/27/22 18:02> Course Course Course Narrative: Labs ordered. Crisis consult placed. Patient was stayed overnight to morning. <JUANITO Jones Last Filed: 09/27/22 18:02> Reevaluation(s) Reevaluation #1: There were no reported incidents on the patient overnight. Patient denies being suicidal homicidal. At this time, she feels better and wants to go back to her care home. She has not been evaluated by the care team however the patient is well-known to the emergency department since she is seen here frequently. The patient will be discharged back to her care home. <Danilo Foster MD - Last Filed: 09/27/22 14:32> Time: 14:30 <Danilo Foster MD - Last Filed: 09/27/22 14:32> Medications Administered Discontinued Medications Generic Name Dose Route Start Last Admin Trade Name Freq PRN Reason Stop Dose Admin Benztropine Mesylate 0.5 mg 09/26/22 21:30 09/27/22 09:23 Benztropine Mesylate 0.5 Mg Tablet PO 0.5 mg BID SULEIMAN Administration Clonidine HCl 0.1 mg 09/26/22 21:30 09/27/22 09:21 Clonidine Hcl 0.1 Mg Tablet PO 0.1 mg TID SULEIMAN Administration Protocol Diphenhydramine HCl 100 mg 09/26/22 21:30 09/26/22 21:39 Diphenhydramine Hcl 25 Mg Capsule PO 100 mg BEDTIME SULEIMAN Administration Docusate Sodium 100 mg 09/26/22 21:30 09/27/22 09:23 Docusate Sodium 100 Mg Capsule PO 100 mg BID SULEIMAN Administration Duloxetine HCl 60 mg 09/27/22 09:00 09/27/22 09:23 Duloxetine Hcl 60 Mg Capsule. PO 60 mg DAILY SULEIMAN Administration Ferrous Sulfate 324 mg 09/27/22 09:00 09/27/22 09:21 Ferrous Sulfate 324 Mg Tablet. PO 324 mg DAILY SULEIMAN Administration Fluticasone/Vilanterol 1 puff 09/27/22 08:00 09/27/22 10:56 Fluticasone/Vilanterol 200/25 Blst.W.Dev INHALE Not Given RDAILY SULEIMAN Haloperidol 5 mg 09/26/22 21:20 09/27/22 13:16 Haloperidol 5 Mg Tablet PO 5 mg TID PRN Administration Agitation Lorazepam 2 mg 09/26/22 19:31 09/26/22 19:36 Lorazepam 1 Mg Tablet PO 09/26/22 19:32 2 mg ONCE ONE Administration Lorazepam 1 mg 09/26/22 21:20 09/27/22 12:39 Lorazepam 1 Mg Tablet PO 1 mg TID PRN Administration anxiety Olanzapine 10 mg 09/26/22 19:31 09/26/22 19:37 Olanzapine 10 Mg Tablet PO 09/26/22 19:32 10 mg ONCE ONE Administration Omeprazole 20 mg 09/27/22 06:30 09/27/22 06:41 Omeprazole 20 Mg Capsule. PO 20 mg DAILY@0630 SULEIMAN Administration Prazosin HCl 1 mg 09/26/22 21:30 09/26/22 21:40 Prazosin Hcl 1 Mg Capsule PO 1 mg BEDTIME SULEIMAN Administration Protocol Prazosin HCl 15 mg 09/26/22 21:30 09/26/22 21:40 Prazosin Hcl 5 Mg Capsule PO 15 mg BEDTIME SULEIMAN Administration Protocol Trazodone HCl 150 mg 09/26/22 21:30 09/26/22 21:44 Trazodone Hcl 50 Mg Tablet PO 150 mg BEDTIME SULEIMAN Administration Zolpidem Tartrate 10 mg 09/26/22 21:30 09/26/22 21:39 Zolpidem Tartrate 5 Mg Tablet PO 10 mg BEDTIME SULEIMAN Administration <JUANITO Jones - Last Filed: 09/27/22 18:02> Medications Administered Discontinued Medications Generic Name Dose Route Start Last Admin Trade Name Freq PRN Reason Stop Dose Admin Benztropine Mesylate 0.5 mg 09/26/22 21:30 09/27/22 09:23 Benztropine Mesylate 0.5 Mg Tablet PO 0.5 mg BID SULEIMAN Administration Clonidine HCl 0.1 mg 09/26/22 21:30 09/27/22 09:21 Clonidine Hcl 0.1 Mg Tablet PO 0.1 mg TID SULEIMAN Administration Protocol Diphenhydramine HCl 100 mg 09/26/22 21:30 09/26/22 21:39 Diphenhydramine Hcl 25 Mg Capsule PO 100 mg BEDTIME SULEIMAN Administration Docusate Sodium 100 mg 09/26/22 21:30 09/27/22 09:23 Docusate Sodium 100 Mg Capsule PO 100 mg BID SULEIMAN Administration Duloxetine HCl 60 mg 09/27/22 09:00 09/27/22 09:23 Duloxetine Hcl 60 Mg Capsule. PO 60 mg DAILY SULEIMAN Administration Ferrous Sulfate 324 mg 09/27/22 09:00 09/27/22 09:21 Ferrous Sulfate 324 Mg Tablet. PO 324 mg DAILY SULEIMAN Administration Fluticasone/Vilanterol 1 puff 09/27/22 08:00 09/27/22 10:56 Fluticasone/Vilanterol 200/25 Blst.W.Dev INHALE Not Given RDAILY [facility] Haloperidol 5 mg 09/26/22 21:20 09/27/22 13:16 Haloperidol 5 Mg Tablet PO 5 mg TID PRN Administration Agitation Lorazepam 2 mg 09/26/22 19:31 09/26/22 19:36 Lorazepam 1 Mg Tablet PO 09/26/22 19:32 2 mg ONCE ONE Administration Lorazepam 1 mg 09/26/22 21:20 09/27/22 12:39 Lorazepam 1 Mg Tablet PO 1 mg TID PRN Administration anxiety Olanzapine 10 mg 09/26/22 19:31 09/26/22 19:37 Olanzapine 10 Mg Tablet PO 09/26/22 19:32 10 mg ONCE ONE Administration Omeprazole 20 mg 09/27/22 06:30 09/27/22 06:41 Omeprazole 20 Mg Capsule.Dr PO 20 mg DAILY@0630 SULEIMAN Administration Prazosin HCl 1 mg 09/26/22 21:30 09/26/22 21:40 Prazosin Hcl 1 Mg Capsule PO 1 mg BEDTIME SULEIMAN Administration Protocol Prazosin HCl 15 mg 09/26/22 21:30 09/26/22 21:40 Prazosin Hcl 5 Mg Capsule PO 15 mg BEDTIME SULEIMAN Administration Protocol Trazodone HCl 150 mg 09/26/22 21:30 09/26/22 21:44 Trazodone Hcl 50 Mg Tablet PO 150 mg BEDTIME SULEIMAN Administration Zolpidem Tartrate 10 mg 09/26/22 21:30 09/26/22 21:39 Zolpidem Tartrate 5 Mg Tablet PO 10 mg BEDTIME SULEIMAN Administration <Danilo Foster MD - Last Filed: 09/27/22 14:32> Medical Decision Making Medical Decision Making MDM Narrative: 37-year-old female history of depression comes to the ER for self cutting on her wrist due to reminder of sister's as her murder case began this week. <JUANITO Jones - Last Filed: 09/27/22 18:02> Differential Diagnosis Differential Diagnoses: The differential diagnosis associated with the presentation includes ( Depression, suicidal,) <JUANITO Jones - Last Filed: 09/27/22 18:02> Admission/Observation Consideration of admission/observation: Escalation of care including admission/observation considered <JUANITO Jones - Last Filed: 09/27/22 18:02> Consult Healthcare Provider Management of the patient was discussed with: Sales And Marketing Analyst (Care team) <JUANITO Jones Last Filed: 09/27/22 18:02> Lab Data MDM Lab Attestation statement: I reviewed the patient's lab results. <JUANITO Jones - Last Filed: 09/27/22 18:02> Labs: Lab Results 09/26/22 09/27/22 09/27/22 Range/Units 19:30 09:38 09:38 Urine Color Yellow Urine Appearance Clear Urine pH 8.0 (5.0-9.0) Ur Specific Perry <= 1.005 (1.005-1.025) Urine Protein Negative (Neg-Trace) mg/dL Urine Glucose (UA) Negative (Negative) mg/dL Urine Ketones Negative (Negative) mg/dL Urine Blood Negative (Negative) Urine Nitrite Negative (Negative) Ur Leukocyte Esterase Negative (Negative) Urine Test (NEGATIVE) Urine Opiates Screen Not Detected (Not Detect) Urine Fentanyl Screen POSITIVE H (Not Detect) Ur Barbiturates Screen Not Detected (Not Detect) Ur Phencyclidine Scrn Not Detected (Not Detect) Ur Amphetamines Screen Not Detected (Not Detect) U Benzodiazepines Scrn Not Detected (Not Detect) Urine Cocaine Screen Not Detected (Not Detect) U Marijuana (THC) Screen POSITIVE H (Not Detect) COVID-19 (RAFAL) Negative (Negative) COVID-19 Clin Com See Note 09/27/22 Range/Units 09:38 Urine Color Urine Appearance Urine pH (5.0-9.0) Ur Specific Perry (1.005-1.025) Urine Protein (Neg-Trace) mg/dL Urine Glucose (UA) (Negative) mg/dL Urine Ketones (Negative) mg/dL Urine Blood (Negative) Urine Nitrite (Negative) Ur Leukocyte Esterase (Negative) Urine Test NEGATIVE (NEGATIVE) Urine Opiates Screen (Not Detect) Urine Fentanyl Screen (Not Detect) Ur Barbiturates Screen (Not Detect) Ur Phencyclidine Scrn (Not Detect) Ur Amphetamines Screen (Not Detect) U Benzodiazepines Scrn (Not Detect) Urine Cocaine Screen (Not Detect) U Marijuana (THC) Screen (Not Detect) COVID-19 (RAFAL) (Negative) COVID-19 Clin Com <JUANITO Jones - Last Filed: 09/27/22 18:02> Lab Results 09/26/22 09/27/22 09/27/22 Range/Units 19:30 09:38 09:38 Urine Color Yellow Urine Appearance Clear Urine pH 8.0 (5.0-9.0) Ur Specific Perry <= 1.005 (1.005-1.025) Urine Protein Negative (Neg-Trace) mg/dL Urine Glucose (UA) Negative (Negative) mg/dL Urine Ketones Negative (Negative) mg/dL Urine Blood Negative (Negative) Urine Nitrite Negative (Negative) Ur Leukocyte Esterase Negative (Negative) Urine Test (NEGATIVE) Urine Opiates Screen Not Detected (Not Detect) Urine Fentanyl Screen POSITIVE H (Not Detect) Ur Barbiturates Screen Not Detected (Not Detect) Ur Phencyclidine Scrn Not Detected (Not Detect) Ur Amphetamines Screen Not Detected (Not Detect) U Benzodiazepines Scrn Not Detected (Not Detect) Urine Cocaine Screen Not Detected (Not Detect) U Marijuana (THC) Screen POSITIVE H (Not Detect) COVID-19 (RAFAL) Negative (Negative) COVID-[employer] See Note 09/27/22 Range/Units 09:38 Urine Color Urine Appearance Urine pH (5.0-9.0) Ur Specific Perry (1.005-1.025) Urine Protein (Neg-Trace) mg/dL Urine Glucose (UA) (Negative) mg/dL Urine Ketones (Negative) mg/dL Urine Blood (Negative) Urine Nitrite (Negative) Ur Leukocyte Esterase (Negative) Urine Test NEGATIVE (NEGATIVE) Urine Opiates Screen (Not Detect) Urine Fentanyl Screen (Not Detect) Ur Barbiturates Screen (Not Detect) Ur Phencyclidine Scrn (Not Detect) Ur Amphetamines Screen (Not Detect) U Benzodiazepines Scrn (Not Detect) Urine Cocaine Screen (Not Detect) U Marijuana (THC) Screen (Not Detect) COVID-19 (RAFAL) (Negative) COVID-[employer] Com <Danilo Foster MD - Last Filed: 09/27/22 14:32> Discharge Plan Discharge Clinical Impression: Depression, Deliberate self-cutting <JUANITO Jones - Last Filed: 09/27/22 18:02> Patient Disposition: Home, Self-Care <JUANITO Jones - Last Filed: 09/27/22 18:02> Additional Instructions: Continue taking medications as prescribed by your providers. Follow-up with your doctor in 2 days. Please return to the emergency department if your symptoms get worse or if you develop any symptoms that are concerning to you. <JUANITO Jones - Last Filed: 09/27/22 18:02> Prescriptions: No Action benztropine 0.5 mg tablet 1 tab PO BID haloperidol 5 mg tablet 1 tab PO TID PRN (Reason: Agitation) diphenhydramine HCl [Banophen] 50 mg capsule 2 cap PO BEDTIME prazosin 1 mg capsule 1 cap PO BEDTIME hydroxyzine pamoate 50 mg capsule 1 cap PO BID PRN (Reason: Anxiety) zolpidem 10 mg tablet 1 tab PO BEDTIME ferrous sulfate 325 mg (65 mg iron) tablet,delayed release (DR/EC) 1 tab PO QAM duloxetine 60 mg capsule,delayed release(DR/EC) 1 cap PO QAM ondansetron HCl 4 mg tablet 1 tab PO Q6H PRN (Reason: nausea/vomiting) acetaminophen 500 mg tablet 1 tab PO Q6H PRN (Reason: pain) prazosin 5 mg capsule 3 cap PO BEDTIME benzonatate 100 mg capsule 1 cap PO TID PRN (Reason: cough) lorazepam 1 mg tablet 1 tab PO TID PRN (Reason: anxiety) albuterol sulfate [ProAir HFA] 90 mcg/actuation HFA aerosol inhaler 2 puff inhalation BID PRN (Reason: Wheezing) Advair HFA 230-21 mcg/actuation HFA aerosol inhaler 2 puff inhalation BID nicotine (polacrilex) 2 mg Gum 2 mg BUCCAL Q2H PRN (Reason: Smoking Cessation) omeprazole 20 mg Tablet,Delayed Release (Dr/Ec) 20 mg PO DAILY clonidine HCl 0.1 mg Tablet 0.1 mg PO TID 30 Days Qty: 90 0RF Protocol: Hold for SBP< HOLD for SBP < : 90 trazodone 50 mg Tablet 150 mg PO BEDTIME 30 Days Qty: 90 0RF lithium carbonate 300 mg Tablet Extended Release 300 mg PO DAILY@1600 30 Days Qty: 30 0RF Rx Instructions: HOLD NIGHT BEFORE ECT docusate sodium 100 mg Capsule 100 mg PO BID 30 Days Qty: 60 0RF Rx Instructions: HOLD FOR LOOSE STOOL haloperidol decanoate 50 mg/mL Solution 75 mg IM Q28D Qty: 0 0RF <JUANITO Jones - Last Filed: 09/27/22 18:02> Interventions: [place]-Suicide Risk Severity Scale Last Done: 09/27/22 04:03 ED Discharge Assessment Last Done: 09/27/22 14:36 <JUANITO Jones - Last Filed: 09/27/22 18:02> Discharge Date/Time: 09/27/22 14:43 <JUANITO Jones - Last Filed: 09/27/22 18:02>
[2022-09-26] MEDS: cloNIDine HCL 0.1 MG TABLET PO (21:39)
[2022-09-26] MEDS: diphenhydrAMINE HCL 25 MG CAPSULE 100 MG PO (21:39)
[2022-09-26] MEDS: Zolpidem Tartrate 5 MG TABLET 10 MG PO (21:39)
[2022-09-26] MEDS: HaloperidoL 5 MG TABLET PO (21:40)
[2022-09-26] MEDS: Benztropine Mesylate 0.5 MG TABLET PO (21:40)
[2022-09-26] MEDS: Prazosin HCL 1 MG CAPSULE PO (21:40)
[2022-09-26] MEDS: Docusate Sodium 100 MG CAPSULE PO (21:40)
[2022-09-26] MEDS: Prazosin HCL 5 MG CAPSULE 15 MG PO (21:40)
[2022-09-26 21:43] VITALS: BP 112/61; PULSE 74; RESP 20
[2022-09-26] MEDS: traZODone HCL 50 MG TABLET 150 MG PO (21:44)
[2022-09-27 06:40] VITALS: BP 129/81; PULSE 93; RESP 17; TEMP 36.3; O2SAT 97
[2022-09-27] MEDS: Omeprazole 20 MG CAPSULE.DR PO (06:41)
--- NOTE | 2022-09-27 06:46 | PC.NURSE ---
Patient slept through the night, no distress observed/reported, behavior non concerning, safety check 1:1 per order, care consult ordered/pending evaluation, medication compliant, VSS, patient at the time arrival was in emotional distress Olanzapine 10 mg PO and Ativan 2 mg PO administered at 1937 with + effect, labs pending, will continue to monitor.
[2022-09-27] MEDS: Ferrous Sulfate 324 MG TABLET.DR PO (09:21)
[2022-09-27] MEDS: cloNIDine HCL 0.1 MG TABLET PO (09:21)
[2022-09-27] MEDS: Benztropine Mesylate 0.5 MG TABLET PO (09:23)
[2022-09-27] MEDS: DULoxetine HCl 60 MG CAPSULE.DR PO (09:23)
[2022-09-27] MEDS: Docusate Sodium 100 MG CAPSULE PO (09:23)
--- NOTE | 2022-09-27 09:36 | PC.NURSE ---
Pt awake at this time. Asking for crisis to meet with her 'now' because she wants to go home. Relayed information to crisis team, who plans to see her today. Stella states it's not fair to me that I have to wait years to be seen, I just want to go home . Stella knocked on care team door demanding to be seen and was explained the same information. 1:1 present. Stelal returned to her room after speaking with care team staff member.
[2022-09-27 09:47] LABS: Appearance Urine Clear; Color Urine Yellow; Glucose Urine UA Negative (Negative); Leukocyte Esterase Urine Negative (Negative); Nitrite Urine Negative (Negative); Specific Gravity - Urine <= 1.005 (1.005-1.025); Urine Blood Negative (Negative); Urine Ketones Negative (Negative); Urine Protein Negative (Neg-Trace)
[2022-09-27 09:48] LABS: UPreg QC Valid YES; Urine Pregnancy NEGATIVE (NEGATIVE)
[2022-09-27 09:57] LABS: Amphetamine Screen Urine Not Detected (Not Detect); Barbiturates, Urine Not Detected (Not Detect); Benzodiazepines Screen Urine Not Detected (Not Detect); Cannabinoid Screen Urine POSITIVE (Not Detect); Cocaine Screen Urine Not Detected (Not Detect); Fentanyl, urine POSITIVE (Not Detect); Opiate Screen Urine Not Detected (Not Detect); Phencyclidine Screen Urine Not Detected (Not Detect)
[2022-09-27] MEDS: LORazepam 1 MG TABLET PO (12:39)
[2022-09-27] MEDS: HaloperidoL 5 MG TABLET PO (13:16)
== END 2022-09-27 14:43 | disposition home or self-care (01) ==
PROVIDERS: Emergency Provider Internal Medicine
DX: F25.1 Schizoaffective disorder, depressive type (principal); X78.9XXA Intentional self-harm by unspecified sharp object, initial encounter; Y93.89 Activity, other specified; Y92.049 Unspecified place in boarding-house as the place of occurrence of the external cause; Y99.9 Unspecified external cause status; Z20.828 Contact with and (suspected) exposure to other viral communicable diseases; Z20.822 Contact with and (suspected) exposure to COVID-19; R45.88 Nonsuicidal self-harm; R45.851 Suicidal ideations; F43.12 Post-traumatic stress disorder, chronic; F60.3 Borderline personality disorder; F17.210 Nicotine dependence, cigarettes, uncomplicated; F12.90 Cannabis use, unspecified, uncomplicated; E66.9 Obesity, unspecified; Z68.41 Body mass index [BMI] 40.0-44.9, adult; Z79.899 Other long term (current) drug therapy
CPT/HCPCS: 80307; 81003; 81025; 87635; 99284; 99285

== ENCOUNTER 2022-10-02 07:21 | Day surgery (SDC) | payer OTHER, SELFPAY ==
[2022-10-02] VITALS (7 sets, daily range): BP systolic 115–167; BP diastolic 70–96; PULSE 85–97; RESP 3–25; TEMP 36.3–36.6; O2SAT 94–98; BMI 41.0
[2022-10-02 08:46] LABS: COVID-19 Test Negative (Negative); IDNOW Serial# BCCEAD1C
--- NOTE | 2022-10-02 08:52 | P.CONAN_ITS ---
[facility] Active Problems Active Problems: All Active Problems (Updated 09/28/22 @ 00:00 by Adiel Sevilla) Injury of ligament of right knee (Acute) Sprain of anterior cruciate ligament of right knee (Acute) Hernia (Chronic) Schizoaffective disorder, depressive type (Chronic) Sprain of left foot (Acute) COVID-19 (Acute) COVID-19 (Acute) Chronic post-traumatic stress disorder (PTSD) (Chronic) Increased BMI (Acute) GERD (gastroesophageal reflux disease) (Acute) Borderline personality disorder (Chronic) Past Medical History Medical History Acute post-traumatic stress disorder Adjustment disorder Anxiety Asthma Borderline personality disorder Chronic post-traumatic stress disorder (PTSD) COPD (chronic obstructive pulmonary disease) Depression GERD (gastroesophageal reflux disease) History of electroconvulsive therapy Increased BMI Injury, self-inflicted Intentional self-harm PTSD (post-traumatic stress disorder) Recurrent major depression-severe Schizoaffective disorder Self-harming behavior Suicidal ideation Suicidal ideation Family History Family History Mother Brain cancer Other No family history of cardiac disease Family history of problems with anesthesia: No Surgical History History of Problems with Anesthesia: No Social History Social History Household Members: Other Household Members Other:: retirement Housing: Assisted Living Facility Housing Other:: retirement Do you presently have visiting nurse or other home services: No Alcohol intake: unknown Patient Tobacco Use Status: Current everyday Tobacco user Tobacco use type: Cigarette Cigarette Packs Per Day: 0.5 Cigarettes Per Day: 10.0 Years Smoked: 17 e-Cigarette/Vaping Use: Never Used Second Hand Smoke Exposure: Yes Substance Use Type: Marijuana Advance Directives: No Advance Directives Information Provided: Yes service: No Sexual orientation: Straight/Heterosexual Meds Allergies Allergy/AdvReac Type Severity Reaction Status Date / Time carbamazepine [From TEGRETOL] AdvReac Unknown NAUSEA & Verified 09/23/22 03:55 VOMITING Fish Containing Products AdvReac Stomach Verified 09/23/22 03:55 Upset Home Medications Medication Instructions Recorded Confirmed Last Taken Type acetaminophen 500 mg tablet 1 tab PO Q6H PRN pain 08/14/22 09/26/22 Unknown Hist ory albuterol sulfate 90 mcg/actuation 2 puff inhalation BID PRN Wheezing 08/14/22 09/26/22 Unknown History aerosol inhaler (ProAir HFA) benzonatate 100 mg capsule 1 cap PO TID PRN cough 08/14/22 09/26/22 Unknown History benztropine 0.5 mg tablet 1 tab PO BID 08/14/22 09/26/22 Unknown History diphenhydramine HCl 50 mg capsule 2 cap PO BEDTIME 08/14/22 09/26/22 Unknown History (Banophen) duloxetine 60 mg capsule,delayed 1 cap PO QAM 08/14/22 09/26/22 Unknown History release ferrous sulfate 325 mg (65 mg 1 tab PO QAM 08/14/22 09/26/22 Unknown History iron) tablet,delayed release fluticasone propionate 230 2 puff inhalation BID 08/14/22 09/26/22 Unknown History mcg-salmeterol 21 mcg/actuation HFA inhaler (Advair HFA) haloperidol 5 mg tablet 1 tab PO TID PRN Agitation 08/14/22 09/26/22 Unknown History hydroxyzine pamoate 50 mg capsule 1 cap PO BID PRN Anxiety 08/14/22 09/26/22 Unknown History lorazepam 1 mg tablet 1 tab PO TID PRN anxiety 08/14/22 09/26/22 Unknown History nicotine (polacrilex) 2 mg gum 2 mg buccal Q2H PRN Smoking 08/14/22 09/26/22 Unknown History Cessation omeprazole 20 mg tablet,delayed 20 mg PO DAILY 08/14/22 09/26/22 Unknown History release ondansetron HCl 4 mg tablet 1 tab PO Q6H PRN nausea/vomiting 08/14/22 09/26/22 Unknown History prazosin 1 mg capsule 1 cap PO BEDTIME 08/14/22 09/26/22 Unknown History prazosin 5 mg capsule 3 cap PO BEDTIME 08/14/22 09/26/22 Unknown History zolpidem 10 mg tablet 1 tab PO BEDTIME 08/14/22 09/26/22 Unknown History Exam Exam Date and Time: October 02, 2022 0852 Height,Weight and Vital Signs: Height 4 ft 11 in Weight 92.079 kg Last Vital Signs Temp 97.3 F 10/02/22 08:39 Pulse 85 10/02/22 08:39 Resp 25 H 10/02/22 08:39 BP 115/81 10/02/22 08:39 Pulse Ox 98 10/02/22 08:39 O2 Del Method 10/02/22 08:39 Pertinent Lab Results Pertinent Lab Results: Laboratory Tests 10/02/22 08:12 COVID-19 ([facility]) Negative COVID-19 Clin Com See Note Airway Mallampati Class: II (Missing a couple, denies anything loose) TM Dist: >3cm Neck ROM: Full Heart: rrr Lungs: cta Assessment and Plan Assessment Anesthesia Assessment: Anesthesia Plan Discussed and Chart Reviewed Final Anesthetic Review Family History of Problems with Anesthesia: No History of Problems with Anesthesia: No NPO: Yes ASA Class: III Final Preanesthetic Review: No Changes in Pt Med Stat, Meds/Allgs Chart Reviewed and Consent Obtained/Reviewed Patient Risk: Intermediate Procedure Risk: Intermediate Anesthetic Plan Anesthetic Plan: GA Disposition: Standard PACU
[2022-10-02] MEDS: Heparin Sodium,Porcine Flush 500 UNIT/5 ML SYRINGE IVFLUSH (10:59)
--- NOTE | 2022-10-02 22:38 | HO.ECTPROC ---
ECT Procedure Note Diagnosis/Treatment Date of Service: 10/02/22 Diagnosis: Major Depressive Disorder and Other (ptsd) Previous ECT Date: 09/25/22 Current Treatment Number: 13 Treatment: Maintenance Interval Clinical Notes: pt intermittantly depressed hopeless helpless but states ect cont to feel stabilizingno c/o significant side effects Time: Total time managing care of this patient today ____ minutes. ECT Settings Device: THYMATRON DGx Electrode Placement: Bifrontal Program/Pulse Width: 0.50 Energy Percent: 100 Seizure Duration By EEG (in seconds): 23 Medications Administration General Anesthetic: Etomidate (14) Muscle Relaxant: Succinylcholine (100) Ancillary Medications Analgesics: Torodol - Pre ECT Anti-emetics: Zofran - Pre ECT Miscillaneous Medications: Propofol Treatment Recommendations Notes: did better with lower dose etom f/u 1-2 weeks Pt Tolerated Procedure w/o Issue: Yes
== END 2022-10-02 11:15 | disposition home or self-care (01) ==
PROVIDERS: Anesthesiology; PCP Pediatrics; Visit Provider Psychiatry & Neurology Psychiatry
PROC: (CPT 90870; principal; 2022-10-02 16:00)
DX: F33.2 Major depressive disorder, recurrent severe without psychotic features (principal); F43.10 Post-traumatic stress disorder, unspecified; F25.9 Schizoaffective disorder, unspecified; F60.3 Borderline personality disorder; J44.9 Chronic obstructive pulmonary disease, unspecified; K21.9 Gastro-esophageal reflux disease without esophagitis; Z79.51 Long term (current) use of inhaled steroids; Z79.899 Other long term (current) drug therapy; Z88.8 Allergy status to other drugs, medicaments and biological substances; Z20.822 Contact with and (suspected) exposure to COVID-19; F17.210 Nicotine dependence, cigarettes, uncomplicated
CPT/HCPCS: 87635; 90870; J0330; J1642; J1885; J2405

== ENCOUNTER 2022-10-06 09:35 | Emergency (ER) | payer OTHER, SELFPAY ==
[2022-10-06 09:46] VITALS: BP 133/87; PULSE 102; RESP 16; TEMP 36.2; O2SAT 97; BMI 40.2
--- NOTE | 2022-10-06 10:51 | ED.PSYCH ---
HPI - Psych General Chief Complaint: Psychiatric Symptoms Stated Complaint: CRISIS,L ARM SUPERFISC LACS PER EMS Time Seen by Provider: 10/06/22 10:08 Source: patient and EMS Mode of arrival: EMS Limitations: no limitations History of Present Illness HPI Narrative: 37 yo female with history schizoaffective disorder, PTSD, GERD, obesity, borderline personality disorder who engages in cutting behaviors who is currently residing in a care home presenting to the ER via EMS after the care home staff members called police/EMS reporting that the client was bradished a knife and care home, staff locked himself is away and called police and they were able to take the knife away from her before police arrived. We are unsure how staff was able to take away the knife from the patient if they were locked and closet. Although patient denies any SI/HI/auditory or visual hallucinations thoughts of self-injury. She reports ?the staff members are lying?. Reports she wants to go back home. She reports she is taking her medications as prescribed. She denies any other symptoms complaints concerns at this time. MD complaint: other (Medical clearance for psych) Onset (ago): hour(s) (Prior to arrival) History of same: Yes Relieving factors: none Exacerbating factors: none Associated psychiatric symptoms: none Associated symptoms: denies other symptoms Treatments prior to arrival: none Related Data Home Medications Medication Instructions Recorded Confirmed acetaminophen 500 mg tablet 1 tab PO Q6H PRN pain 08/14/22 09/26/22 albuterol sulfate 90 mcg/actuation 2 puff inhalation BID PRN Wheezing 08/14/22 09/26/22 aerosol inhaler (ProAir HFA) benzonatate 100 mg capsule 1 cap PO TID PRN cough 08/14/22 09/26/22 benztropine 0.5 mg tablet 1 tab PO BID 08/14/22 09/26/22 diphenhydramine HCl 50 mg capsule 2 cap PO BEDTIME 08/14/22 09/26/22 (Banophen) duloxetine 60 mg capsule,delayed 1 cap PO QAM 08/14/22 09/26/22 release ferrous sulfate 325 mg (65 mg 1 tab PO QAM 08/14/22 09/26/22 iron) tablet,delayed release fluticasone propionate 230 2 puff inhalation BID 08/14/22 09/26/22 mcg-salmeterol 21 mcg/actuation HFA inhaler (Advair HFA) haloperidol 5 mg tablet 1 tab PO TID PRN Agitation 08/14/22 09/26/22 hydroxyzine pamoate 50 mg capsule 1 cap PO BID PRN Anxiety 08/14/22 09/26/22 lorazepam 1 mg tablet 1 tab PO TID PRN anxiety 08/14/22 09/26/22 nicotine (polacrilex) 2 mg gum 2 mg buccal Q2H PRN Smoking 08/14/22 09/26/22 Cessation omeprazole 20 mg tablet,delayed 20 mg PO DAILY 08/14/22 09/26/22 release ondansetron HCl 4 mg tablet 1 tab PO Q6H PRN nausea/vomiting 08/14/22 09/26/22 prazosin 1 mg capsule 1 cap PO BEDTIME 08/14/22 09/26/22 prazosin 5 mg capsule 3 cap PO BEDTIME 08/14/22 09/26/22 zolpidem 10 mg tablet 1 tab PO BEDTIME 08/14/22 09/26/22 Previous Rx's Medication Instructions Recorded clonidine HCl 0.1 mg tablet 0.1 mg PO TID 30 days #90 tabs 09/01/22 docusate sodium 100 mg capsule 100 mg PO BID 30 days #60 caps 09/01/22 haloperidol decanoate 50 mg/mL 75 mg (1.5 mL) IM Q28D #0 mL 09/01/22 intramuscular solution lithium carbonate 300 mg 300 mg PO DAILY@1600 30 days #30 09/01/22 tablet,extended release tabs trazodone 50 mg tablet 150 mg PO BEDTIME 30 days #90 tabs 09/01/22 Allergies Allergy/AdvReac Type Severity Reaction Status Date / Time carbamazepine [From TEGRETOL] AdvReac Unknown NAUSEA & Verified 09/23/22 03:55 VOMITING Fish Containing Products AdvReac Stomach Verified 09/23/22 03:55 Upset Review of Systems Review of Systems: Constitutional : No Fever, No Chills ENT/Mouth : No Ear Pain, No Nasal Congestion, No sore throat Eyes: No Eye Pain, No Swelling, No Redness Cardiovascular : No Chest Pain, No SOB Respiratory : No Cough, No Sputum, No Dyspnea Gastrointestinal : No ingestions, No Nausea, No Vomiting, No Diarrhea, No Hematochezia, No Melena Genitourinary : No Dysuria, No Urinary Frequency, No Hematuria Musculoskeletal : No Myalgias Skin : No Skin Lesions, No rash Neuro : No Weakness, No Numbness, No Paresthesias, No Dizziness, No Headache Psych : No Anxiety, No Depression, No SI, No thoughts of self injury, No HI, No AVH, Heme/Lymph: No Lymphadenopathy Endocrine : No Polyuria, No Polydipsia Yes all other systems are reviewed and are negative [facility] Past Medical History Attestation statement: The following information was validated with the patient. Source: old records reviewed and nursing notes reviewed Medical History Acute post-traumatic stress disorder Adjustment disorder Anxiety Asthma Borderline personality disorder Chronic post-traumatic stress disorder (PTSD) COPD (chronic obstructive pulmonary disease) Depression GERD (gastroesophageal reflux disease) History of electroconvulsive therapy Increased BMI Injury, self-inflicted Intentional self-harm PTSD (post-traumatic stress disorder) Recurrent major depression-severe Schizoaffective disorder Self-harming behavior Suicidal ideation Suicidal ideation Family History Family History Mother Brain cancer Other No family history of cardiac disease Social History Social History Household Members: Other Household Members Other:: care home Housing: Assisted Living Facility Housing Other:: care home Do you presently have visiting nurse or other home services: No Alcohol intake: unknown Patient Tobacco Use Status: Current everyday Tobacco user Tobacco use type: Cigarette Cigarette Packs Per Day: 0.5 Cigarettes Per Day: 10.0 Years Smoked: 17 e-Cigarette/Vaping Use: Never Used Second Hand Smoke Exposure: Yes Substance Use Type: Marijuana Advance Directives: No Advance Directives Information Provided: No service: No Sexual orientation: Straight/Heterosexual Physical Exam Vital Signs: Vital Signs: Last Vital Signs Temp 97.2 F 10/06/22 09:46 Pulse 102 H 10/06/22 09:46 Resp 16 10/06/22 09:46 BP 133/87 10/06/22 09:46 Pulse Ox 97 10/06/22 09:46 O2 Del Method 10/06/22 09:46 BMI result Body Mass Index 40.2 vital signs have been reviewed as normal and appeared to be correct. Blood pressure normal. Heart rate normal. Respiration rate normal. Temperature normal. Oxygen saturation normal. Appearance: Alert. Oriented X3. No acute distress. Head: Normal external exam. Normocephalic. Atraumatic. No Bello signs noted. No raccoon eyes noted Eyes: PERRLA. EOMI. Conjunctiva and sclera normal. Eyelids normal. ENT: EAC normal. TM's Normal. Pharynx normal. Uvula midline. Moist mucous membranes. No trismus noted. No drooling noted. No muffled voice noted. Neck: Normal inspection. Neck supple. FROM. No adenopathy. Thyroid Normal. No meningeal signs. No neck mass noted. CVS: Normal heart rate and rhythm. Heart sound normal. No murmurs noted. Pulses normal throughout. Respiratory: No respiratory distress. Painless inspiration. Breath sounds normal. No wheezes/rales/rhonchi noted. Chest nontender. No accessory muscle usage noted or decreased air movement noted. Abdomen: Soft and nontender. Bowel sounds normal in all 4 quadrants. No distention noted. No organomegaly noted. No visible injury noted. Back: No CVA tenderness. Full range of motion noted. Skin: Skin warm and dry. Normal skin color. Normal skin turgor. Old self-injury zaldivar to bilateral forearms. No new self-injury zaldivar. No rashes/lesions/lacerations noted. Extremities: No lower extremity edema. Extremities exhibit normal range of motion. Extremities nontender. Neuro: Oriented X 3. No motor deficit. No sensory deficit. Reflexes normal. CN's II-XII intact bilaterally? Psych: Appearance grossly normal, well-kept, mental status normal, speech and movement normal, speech clear. Is cooperative. Normal thought process. Normal thought content. Normal good insight. Judgment good. Course Course Course Narrative: prison sent patient due to she was bradished a knife around the care home although staff was able to take away the knife while in the closet therefore conflicting stories. Patient at this time is alert oriented. Has old self-injury zaldivar. No new zaldivar. No SI/HI/auditory or visualization or thoughts of self-injury. She reports the care home staff members are ?lying?. Therefore care team spoke with care home staff members and they are agreeable to taking the patient back. She will be sent back no labs or imaging indicated at this time. And patient instructed to return if any new or worsening symptoms follow up with primary care provider. Patient understands agrees with this plan. Medical Decision Making Independent Historian Clinical information obtained from an independent historian. History obtained from or confirmed by: Other (Patient care home staff member) External Record Review External record reviewed: Inpatient record, Office record, Outpatient record, Prior outpatient labs, Prior outpatient radiology, Primary care record and Outside ED record Social Determinants In care home program Discharge Plan Discharge Clinical Impression: Schizoaffective disorder, depressive type Patient Disposition: Home, Self-Care Instructions: Schizoaffective Disorder (ED) Prescriptions: No Action benztropine 0.5 mg tablet 1 tab PO BID haloperidol 5 mg tablet 1 tab PO TID PRN (Reason: Agitation) diphenhydramine HCl [Banophen] 50 mg capsule 2 cap PO BEDTIME prazosin 1 mg capsule 1 cap PO BEDTIME hydroxyzine pamoate 50 mg capsule 1 cap PO BID PRN (Reason: Anxiety) zolpidem 10 mg tablet 1 tab PO BEDTIME ferrous sulfate 325 mg (65 mg iron) tablet,delayed release (DR/EC) 1 tab PO QAM duloxetine 60 mg capsule,delayed release(DR/EC) 1 cap PO QAM ondansetron HCl 4 mg tablet 1 tab PO Q6H PRN (Reason: nausea/vomiting) acetaminophen 500 mg tablet 1 tab PO Q6H PRN (Reason: pain) prazosin 5 mg capsule 3 cap PO BEDTIME benzonatate 100 mg capsule 1 cap PO TID PRN (Reason: cough) lorazepam 1 mg tablet 1 tab PO TID PRN (Reason: anxiety) albuterol sulfate [ProAir HFA] 90 mcg/actuation HFA aerosol inhaler 2 puff inhalation BID PRN (Reason: Wheezing) Advair HFA 230-21 mcg/actuation HFA aerosol inhaler 2 puff inhalation BID nicotine (polacrilex) 2 mg Gum 2 mg BUCCAL Q2H PRN (Reason: Smoking Cessation) omeprazole 20 mg Tablet,Delayed Release (Dr/Ec) 20 mg PO DAILY clonidine HCl 0.1 mg Tablet 0.1 mg PO TID 30 Days Qty: 90 0RF Protocol: Hold for SBP< HOLD for SBP < : 90 trazodone 50 mg Tablet 150 mg PO BEDTIME 30 Days Qty: 90 0RF lithium carbonate 300 mg Tablet Extended Release 300 mg PO DAILY@1600 30 Days Qty: 30 0RF Rx Instructions: HOLD NIGHT BEFORE ECT docusate sodium 100 mg Capsule 100 mg PO BID 30 Days Qty: 60 0RF Rx Instructions: HOLD FOR LOOSE STOOL haloperidol decanoate 50 mg/mL Solution 75 mg IM Q28D Qty: 0 0RF Referrals: Carroll Gaviria MD [Primary Care Provider] - 2 days
== END 2022-10-06 10:57 | disposition home or self-care (01) ==
PROVIDERS: Emergency Provider Emergency Medicine; PCP Pediatrics
DX: F25.1 Schizoaffective disorder, depressive type (principal); F43.12 Post-traumatic stress disorder, chronic; F60.3 Borderline personality disorder; Z79.899 Other long term (current) drug therapy
CPT/HCPCS: 99283; S9485

== ENCOUNTER 2022-10-07 17:13 | Emergency (ER) | payer OTHER, SELFPAY ==
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
[2022-10-07 17:43] VITALS: BP 98/53; PULSE 88; RESP 16; TEMP 36.7; O2SAT 96; BMI 41.8
[2022-10-07 17:58] LABS: MANUAL DIFF FLAG NO
[2022-10-07 18:04] LABS: Basophils Percent Auto 0.4 % (0-2); Eosinophils Percent Auto 0.3 % (0-4); Hematocrit 37.7 % (37.0-47.0); Hemoglobin 12.3 g/dl (12.0-16.0); Imm Gran Abs Auto 0.02 X10*3/uL (0.00-0.03); Imm Gran Pct Auto 0.3 % (0.0-0.4); Lymphocytes Absolute Auto 1.5 X10*3/uL (1.2-4.9); Lymphocytes Percent Auto 19.4 % (20-40); Mean Corpuscular HGB Conc 32.6 g/dl (31.0-35.0); Mean Corpuscular Hemoglobin 29.1 pg (27.0-33.0); Mean Corpuscular Volume 89.3 fL (80.0-98.0); Mean Platelet Volume 10.5 fL (9.4-12.3); Monocytes Absolute Auto 0.5 X10*3/uL (0.1-1.2); Monocytes Percent Auto 6.3 % (2-11); Neutrophils Absolute Auto 5.7 x10*3/uL (2.0-8.3); Neutrophils Percent Auto 73.3 % (45-73); Platelet Count 249 X10*3/uL (160-400); Red Blood Count 4.22 X10*6/uL (4.20-5.50); White Blood Count 7.7 X10*3/uL (4.8-10.8)
[2022-10-07 18:13] LABS: COVID-19 Test Negative (Negative); IDNOW Serial# 16C4AD1C
--- NOTE | 2022-10-07 18:20 | PHA.MEDREC ---
Pharmacy Consult ? Medication Reconciliation Pharmacy has completed the medication reconciliation.
[2022-10-07 18:23] LABS: Alanine Aminotransferase 12 U/L (0-31); Albumin Level 4.1 g/dL (3.5-5.0); Alkaline Phosphatase 57 U/L (39-117); Anion Gap 9 (12-20); Aspartate Amino Transferase 11 U/L (5-31); Bilirubin Total 0.4 mg/dL (0.0-1.0); Blood Urea Nitrogen 11 mg/dL (9-16); Calcium 9.2 mg/dL (8.4-10.2); Carbon Dioxide 24 mmol/L (22-29); Chloride 108 mmol/L (96-108); Creatinine Clr Calc Pharmacy 90.6; Estimated Glomerular Filt Rate > 60; Ethanol < 10 mg/dL; Glucose Random 100 mg/dL (60-115); Magnesium 1.8 mg/dL (1.6-2.6); Potassium 4.1 mmol/L (3.3-5.1); Sodium 137 mmol/L (135-145); Total Protein 6.6 g/dL (6.5-8.0)
--- NOTE | 2022-10-07 18:44 | PC.NURSE ---
At 1745 while in pt's room, she was banging herself in the head and hitting head on wall. Quietly informed pt that she would only get a headache, it would not kill her. She agreed to stop, has calmed down. No further head banging
[2022-10-07 18:45] LABS: Influenza A PCR NEGATIVE (Negative); Influenza B PCR NEGATIVE (Negative); Resp Syncy Virus RNA Qual PCR NEGATIVE (Negative); SARS COV2 PCR INHOUSE NEGATIVE (Negative)
--- NOTE | 2022-10-07 19:00 | PC.NURSE ---
nO 1:1 NEEDED AT THIS TIME PER GRACIELACC. UNLESS PT ACTS UP
[2022-10-07 19:03] LABS: Acetaminophen LAB < 17 mcg/mL (<30); Salicylate < 5.0 mg/dL (15-30)
--- NOTE | 2022-10-07 19:11 | PC.NURSE ---
Per shift report from Martha WOOD, patient's standing one-to-one observation was discontinued by Lynsey, patient is currently on 15 minutes check.
[2022-10-07] MEDS: diphenhydrAMINE HCL 25 MG CAPSULE 100 MG PO (20:24)
[2022-10-07] MEDS: Docusate Sodium 100 MG CAPSULE PO (20:24)
[2022-10-07] MEDS: Zolpidem Tartrate 5 MG TABLET 10 MG PO (20:25)
[2022-10-07] MEDS: cloNIDine HCL 0.1 MG TABLET PO (20:25)
[2022-10-07] MEDS: HaloperidoL 5 MG TABLET PO (20:25)
[2022-10-07] MEDS: Benztropine Mesylate 0.5 MG TABLET PO (20:25)
[2022-10-07] MEDS: Acetaminophen 325 MG TABLET 650 MG PO (20:25)
[2022-10-07] MEDS: Prazosin HCL 5 MG CAPSULE 15 MG PO (20:26)
[2022-10-07] MEDS: Prazosin HCL 1 MG CAPSULE PO (20:26)
[2022-10-07 20:32] VITALS: BP 106/61; PULSE 71; RESP 20; TEMP 36.2; O2SAT 95
[2022-10-07 20:33] LABS: Appearance Urine Clear; Color Urine Yellow; Glucose Urine UA Negative (Negative); Leukocyte Esterase Urine Negative (Negative); Nitrite Urine Negative (Negative); Specific Gravity - Urine 1.015 (1.005-1.025); Urine Blood Negative (Negative); Urine Ketones Negative (Negative); Urine Protein Negative (Neg-Trace)
[2022-10-07 20:34] LABS: UPreg QC Valid YES; Urine Pregnancy NEGATIVE (NEGATIVE)
[2022-10-07 20:44] LABS: Amphetamine Screen Urine Not Detected (Not Detect); Barbiturates, Urine Not Detected (Not Detect); Benzodiazepines Screen Urine Not Detected (Not Detect); Cannabinoid Screen Urine POSITIVE (Not Detect); Cocaine Screen Urine Not Detected (Not Detect); Fentanyl, urine POSITIVE (Not Detect); Opiate Screen Urine Not Detected (Not Detect); Phencyclidine Screen Urine Not Detected (Not Detect)
== END 2022-10-07 20:56 | disposition home or self-care (01) ==
PROVIDERS: Physician Assistant; Emergency Provider Emergency Medicine
DX: F25.1 Schizoaffective disorder, depressive type (principal); F43.12 Post-traumatic stress disorder, chronic; F60.3 Borderline personality disorder; Z20.822 Contact with and (suspected) exposure to COVID-19; Z20.828 Contact with and (suspected) exposure to other viral communicable diseases; Z79.899 Other long term (current) drug therapy
CPT/HCPCS: 0241U; 80053; 80143; 80179; 80307; 81003; 81025; 82077; 83735; 85025; 87635; 99285; S9485

== ENCOUNTER 2022-10-09 05:55 | Day surgery (SDC) | payer OTHER, SELFPAY ==
[2022-10-09] VITALS (8 sets, daily range): BP systolic 109–151; BP diastolic 63–77; PULSE 64–96; RESP 17–23; TEMP 36.4–37.4; O2SAT 94–97; BMI 40.4
[2022-10-09 06:36] LABS: COVID-19 Test Negative (Negative); IDNOW Serial# 16C4AD1C
--- NOTE | 2022-10-09 07:54 | MHC.SHP ---
Pre-Procedural Eval Section A Date of Service: 10/09/22 The patient is an INPATIENT: No Changes since office visit: Yes Cold of Flu in the past 2 weeks, Yes New Medical Problems and Yes Patient answered all questions; No Changes in Medication The History & Physical has been completed within 30 days and I have reviewed it.: No Section B Chief Complaint: Major depressive disorder, recurrent, severe with Details of Present Illness: recurrent depression ptsd Relevant Social History: Tobacco Use Present Medications: see Short Stay Collaborative assessment Medical History: Significant History (ASTHMA ) History of Previous Operations: No relevant previous surgery (ECT) Allergies: Allergies Allergy/AdvReac Type Severity Reaction Status Date / Time carbamazepine [From TEGRETOL] AdvReac Unknown NAUSEA & Verified 09/23/22 03:55 VOMITING Fish Containing Products AdvReac Stomach Verified 09/23/22 03:55 Upset Review of Systems Sugical H&P ROS: Negative: Cardiovascular and Yes, Specify: Respiratory (OCC COUGH SOB ) and Psychiatric (ANXIETY DYSPHORIA PASSIVE SI) Exam Surgical H&P Exam: Normal: Heart and Normal: Lungs (CLEAR) and Significant Findings: Skin (SUPERFICIAL LACERATIONS ) and Significant Findings: Neurological (TREMOR) Plan Diagnosis/Plan: Unchanged I have reviewed the history and physical and performed a pertinent physical examination on my patient. No changes have occurred unless specified. Time Spent With Patient Time: Total time managing care of this patient today ____ minutes.
--- NOTE | 2022-10-09 08:08 | P.CONAN_ITS ---
[facility] Active Problems Active Problems: All Active Problems (Updated 10/07/22 @ 17:35 by JUANITO Cuevas) Injury of ligament of right knee (Acute) Sprain of anterior cruciate ligament of right knee (Acute) Hernia (Chronic) Schizoaffective disorder, depressive type (Chronic) Sprain of left foot (Acute) COVID-19 (Acute) COVID-19 (Acute) Chronic post-traumatic stress disorder (PTSD) (Chronic) Increased BMI (Acute) GERD (gastroesophageal reflux disease) (Acute) Borderline personality disorder (Chronic) Past Medical History Medical History Acute post-traumatic stress disorder Adjustment disorder Anxiety Asthma Borderline personality disorder Chronic post-traumatic stress disorder (PTSD) COPD (chronic obstructive pulmonary disease) Depression GERD (gastroesophageal reflux disease) History of electroconvulsive therapy Increased BMI Injury, self-inflicted Intentional self-harm PTSD (post-traumatic stress disorder) Recurrent major depression-severe Schizoaffective disorder Self-harming behavior Suicidal ideation Suicidal ideation Family History Family History Mother Brain cancer Other No family history of cardiac disease Family history of problems with anesthesia: No Surgical History History of Problems with Anesthesia: No Social History Social History Household Members: Other Household Members Other:: [facility] Housing: [facility]isted Living Facility Housing Other:: [facility] Do you presently have visiting nurse or other home services: No Alcohol intake: never Patient Tobacco Use Status: Current everyday Tobacco user Tobacco use type: Cigarette Cigarette Packs Per Day: 0.5 Cigarettes Per Day: 10.0 Years Smoked: 17 e-Cigarette/Vaping Use: Never Used Second Hand Smoke Exposure: Yes Substance Use Type: Marijuana Advance Directives: No Advance Directives Information Provided: No service: No Sexual orientation: Straight/Heterosexual Meds Allergies Allergy/AdvReac Type Severity Reaction Status Date / Time carbamazepine [From TEGRETOL] AdvReac Unknown NAUSEA & Verified 09/23/22 03:55 VOMITING Fish Containing Products AdvReac Stomach Verified 09/23/22 03:55 Upset Home Medications Medication Instructions Recorded Confirmed Last Taken Type acetaminophen 500 mg tablet 1 tab PO Q6H PRN pain 08/14/22 10/07/22 Unknown History albuterol sulfate 90 mcg/actuation 2 puff inhalation BID PRN Wheezing 08/14/22 10/07/22 Unknown History aerosol inhaler (ProAir HFA) benztropine 0.5 mg tablet 1 tab PO BID 08/14/22 10/07/22 Unknown History diphenhydramine HCl 50 mg capsule 2 cap PO BEDTIME 08/14/22 10/07/22 Unknown History (Banophen) duloxetine 60 mg capsule,delayed 1 cap PO QAM 08/14/22 10/07/22 Unknown History release ferrous sulfate 325 mg (65 mg 1 tab PO QAM 08/14/22 10/07/22 Unknown History iron) tablet,delayed release haloperidol 5 mg tablet 1 tab PO TID PRN Agitation 08/14/22 10/07/22 Unknown History hydroxyzine pamoate 50 mg capsule 1 cap PO BID PRN Anxiety 08/14/22 10/07/22 Unknown History nicotine (polacrilex) 2 mg gum 2 mg buccal Q2H PRN Smoking 08/14/22 10/07/22 Unknown History Cessation omeprazole 20 mg tablet,delayed 20 mg PO DAILY 08/14/22 10/07/22 Unknown History release prazosin 1 mg capsule 1 cap PO BEDTIME 08/14/22 10/07/22 Unknown History prazosin 5 mg capsule 3 cap PO BEDTIME 08/14/22 10/07/22 Unknown History zolpidem 10 mg tablet 1 tab PO BEDTIME 08/14/22 10/07/22 Unknown History cetirizine 10 mg tablet 1 tab PO DAILY 10/07/22 10/07/22 Unknown History fluticasone propionate 230 2 puff inhalation BID 10/07/22 10/07/22 Unknown History mcg-salmeterol 21 mcg/actuation HFA inhaler (Advair HFA) Exam Exam Date and Time: October 09, 2022 0808 Height,Weight and Vital Signs: Height 4 ft 11 in Weight 90.718 kg Last Vital Signs Temp 98 F 10/09/22 06:42 Pulse 84 10/09/22 06:42 Resp 18 10/09/22 06:42 BP 119/77 10/09/22 06:42 Pulse Ox 97 10/09/22 06:42 O2 Del Method 10/09/22 06:42 Pertinent Lab Results Pertinent Lab Results: Laboratory Tests 10/09/22 06:13 COVID-19 (RAFAL) Negative COVID-19 Clin Com See Note Airway Mallampati Class: III TM Dist: >3cm Neck ROM: Full Loose/Missing/Broken Teeth: No Heart: RRR Lungs: CTA Assessment and Plan Assessment Anesthesia Assessment: Anesthesia Plan Discussed and Chart Reviewed Final Anesthetic Review Family History of Problems with Anesthesia: No History of Problems with Anesthesia: No NPO: Yes ASA Class: II and III Final Preanesthetic Review: Meds/Allgs Chart Reviewed, Consent Obtained/Reviewed and Anes Risks/Benef Reviewed Patient Risk: Intermediate Procedure Risk: Intermediate Anesthetic Plan Anesthetic Plan: GA Disposition: Standard PACU
--- NOTE | 2022-10-09 08:23 | HO.ECTPROC ---
ECT Procedure Note Diagnosis/Treatment Date of Service: 10/10/22 Diagnosis: Major Depressive Disorder and Other (ptsd) Previous ECT Date: 10/02/22 Treatment: Maintenance Interval Clinical Notes: pt intermittantly depressed hopeless helpless but states ect cont to feel stabilizingno c/o significant side effects under lot of stress frequently goes the emergency room Time: Total time managing care of this patient today ____ minutes. ECT Settings Device: THYMATRON DGx Electrode Placement: Bifrontal Program/Pulse Width: 0.50 Energy Percent: 100 Seizure Duration By EEG (in seconds): 24 Medications Administration General Anesthetic: Etomidate (14) Muscle Relaxant: Succinylcholine (100) Ancillary Medications Analgesics: Torodol - Pre ECT Anti-emetics: Zofran - Pre ECT Miscillaneous Medications: Propofol Airway Management Airway Management: Bag Mask Ventilation Treatment Recommendations Notes: Follow-up 1 week trying to clarify of maintenance ECT helpful in stabilizing mood in self-harming behavior in the context of depression PTSD Pt Tolerated Procedure w/o Issue: Yes
== END 2022-10-09 09:37 | disposition home or self-care (01) ==
PROVIDERS: PCP Pediatrics; Visit Provider Psychiatry & Neurology Psychiatry
PROC: (CPT 90870; principal; 2022-10-09 08:00)
DX: F33.2 Major depressive disorder, recurrent severe without psychotic features (principal); F43.12 Post-traumatic stress disorder, chronic; F25.9 Schizoaffective disorder, unspecified; G60.3 Idiopathic progressive neuropathy; J44.9 Chronic obstructive pulmonary disease, unspecified; G47.33 Obstructive sleep apnea (adult) (pediatric); J45.909 Unspecified asthma, uncomplicated; K21.9 Gastro-esophageal reflux disease without esophagitis; Z79.51 Long term (current) use of inhaled steroids; Z79.899 Other long term (current) drug therapy; Z79.1 Long term (current) use of non-steroidal anti-inflammatories (NSAID); Z88.8 Allergy status to other drugs, medicaments and biological substances; F17.210 Nicotine dependence, cigarettes, uncomplicated; Z20.822 Contact with and (suspected) exposure to COVID-19
CPT/HCPCS: 87635; 90870; J0330; J1642; J1885; J2060; J2405

== ENCOUNTER 2022-10-14 06:10 | Day surgery (SDC) | payer OTHER, SELFPAY ==
[2022-10-14] VITALS (7 sets, daily range): BP systolic 104–130; BP diastolic 63–75; PULSE 83–95; RESP 12–26; TEMP 36.4–36.9; O2SAT 93–98; BMI 40.4
--- NOTE | 2022-10-14 06:43 | HO.ANESPROP2 ---
[facility] Active Problems Active Problems: All Active Problems (Updated 10/07/22 @ 17:35 by JUANITO Cuevas) Injury of ligament of right knee (Acute) Sprain of anterior cruciate ligament of right knee (Acute) Hernia (Chronic) Schizoaffective disorder, depressive type (Chronic) Sprain of left foot (Acute) COVID-19 (Acute) COVID-19 (Acute) Chronic post-traumatic stress disorder (PTSD) (Chronic) Increased BMI (Acute) GERD (gastroesophageal reflux disease) (Acute) Borderline personality disorder (Chronic) Past Medical History Medical History Acute post-traumatic stress disorder Adjustment disorder Anxiety Asthma Borderline personality disorder Chronic post-traumatic stress disorder (PTSD) COPD (chronic obstructive pulmonary disease) Depression GERD (gastroesophageal reflux disease) History of electroconvulsive therapy Increased BMI Injury, self-inflicted Intentional self-harm PTSD (post-traumatic stress disorder) Recurrent major depression-severe Schizoaffective disorder Self-harming behavior Suicidal ideation Suicidal ideation Family History Family History Mother Brain cancer Other No family history of cardiac disease Family history of problems with anesthesia: No Surgical History History of Problems with Anesthesia: No Social History Social History Household Members: Other Household Members Other:: [facility] Housing: [facility] Housing Other:: [facility] Do you presently have visiting nurse or other home services: No Alcohol intake: never Patient Tobacco Use Status: Current everyday Tobacco user Tobacco use type: Cigarette Cigarette Packs Per Day: 0.5 Cigarettes Per Day: 10.0 Years Smoked: 17 e-Cigarette/Vaping Use: Never Used Second Hand Smoke Exposure: Yes Substance Use Type: Marijuana Advance Directives: No Advance Directives Information Provided: Yes service: No Sexual orientation: Straight/Heterosexual Meds Allergies Allergy/AdvReac Type Severity Reaction Status Date / Time carbamazepine [From TEGRETOL] AdvReac Unknown NAUSEA & Verified 09/23/22 03:55 VOMITING Fish Containing Products AdvReac Stomach Verified 09/23/22 03:55 Upset Home Medications Medication Instructions Recorded Confirmed Last Taken Type acetaminophen 500 mg tablet 1 tab PO Q6H PRN pain 08/14/22 10/07/22 Unknown History albuterol sulfate 90 mcg/actuation 2 puff inhalation BID PRN Wheezing 08/14/22 10/07/22 Unknown History aerosol inhaler (ProAir HFA) benztropine 0.5 mg tablet 1 tab PO BID 08/14/22 10/07/22 Unknown History diphenhydramine HCl 50 mg capsule 2 cap PO BEDTIME 08/14/22 10/07/22 Unknown History (Banophen) duloxetine 60 mg capsule,delayed 1 cap PO QAM 08/14/22 10/07/22 Unknown History release ferrous sulfate 325 mg (65 mg 1 tab PO QAM 08/14/22 10/07/22 Unknown History iron) tablet,delayed release haloperidol 5 mg tablet 1 tab PO TID PRN Agitation 08/14/22 10/07/22 Unknown History hydroxyzine pamoate 50 mg capsule 1 cap PO BID PRN Anxiety 08/14/22 10/07/22 Unknown History nicotine (polacrilex) 2 mg gum 2 mg buccal Q2H PRN Smoking 08/14/22 10/07/22 Unknown History Cessation omeprazole 20 mg tablet,delayed 20 mg PO DAILY 08/14/22 10/07/22 Unknown History release prazosin 1 mg capsule 1 cap PO BEDTIME 08/14/22 10/07/22 Unknown History prazosin 5 mg capsule 3 cap PO BEDTIME 08/14/22 10/07/22 Unknown History zolpidem 10 mg tablet 1 tab PO BEDTIME 08/14/22 10/07/22 Unknown History cetirizine 10 mg tablet 1 tab PO DAILY 10/07/22 10/07/22 Unknown History fluticasone propionate 230 2 puff inhalation BID 10/07/22 10/07/22 Unknown History mcg-salmeterol 21 mcg/actuation HFA inhaler (Advair HFA) Exam Exam Date and Time: October 14, 2022 0644 Height,Weight and Vital Signs: Height 4 ft 11 in Weight 90.718 kg Last Vital Signs Temp 97.5 F 10/14/22 06:36 Pulse 85 10/14/22 06:36 Resp 12 10/14/22 06:36 BP 124/75 10/14/22 06:36 Pulse Ox 97 10/14/22 06:36 O2 Del Method 10/14/22 06:36 Airway Mallampati Class: II (Missing a couple) TM Dist: >3cm Neck ROM: Full Heart: rrr Lungs: cta bl Assessment and Plan Assessment Anesthesia Assessment: Anesthesia Plan Discussed and Chart Reviewed Final Anesthetic Review Family History of Problems with Anesthesia: No History of Problems with Anesthesia: No NPO: Yes ASA Class: III Final Preanesthetic Review: No Changes in Pt Med Stat, Meds/Allgs Chart Reviewed and Consent Obtained/Reviewed Patient Risk: Intermediate Procedure Risk: Intermediate Anesthetic Plan Anesthetic Plan: GA Disposition: Standard PACU
[2022-10-14 06:47] LABS: COVID-19 Test Negative (Negative); IDNOW Serial# BCCEAD1C
--- NOTE | 2022-10-14 07:01 | MHC.SHP ---
Pre-Procedural Eval Section A Date of Service: 10/14/22 The patient is an INPATIENT: No Changes since office visit: No Cold of Flu in the past 2 weeks, No New Medical Problems, No Changes in Medication and No Patient answered all questions The History & Physical has been completed within 30 days and I have reviewed it.: Yes Section B Chief Complaint: Major depressive disorder, recurrent, Allergies: Allergies Allergy/AdvReac Type Severity Reaction Status Date / Time carbamazepine [From TEGRETOL] AdvReac Unknown NAUSEA & Verified 09/23/22 03:55 VOMITING Fish Containing Products AdvReac Stomach Verified 09/23/22 03:55 Upset Plan I have reviewed the history and physical and performed a pertinent physical examination on my patient. No changes have occurred unless specified. Time Spent With Patient Time: Total time managing care of this patient today ____ minutes.
--- NOTE | 2022-10-14 07:01 | HO.ECTPROC ---
ECT Procedure Note Diagnosis/Treatment Date of Service: 10/14/22 Diagnosis: Schizoaffective Disorder Previous ECT Date: 11/06/22 Treatment: Maintenance Interval Clinical Notes: The patient reported improvement of her mood, dysphoric due to psychosocial stressors, the hearing for the assesination of her sister will come soon and she is worried. Still, no evidence of suicidal thoughts. Time: Total time managing care of this patient today _30___ minutes. ECT Settings Device: THYMATRON DGx Electrode Placement: Bifrontal Program/Pulse Width: 0.50 Energy Percent: 100 Seizure Duration By EEG (in seconds): 23 By Motor Observation (in seconds): 17 Medications Administration General Anesthetic: Etomidate (14) Muscle Relaxant: Succinylcholine (100) Ancillary Medications Analgesics: Torodol - Pre ECT Anti-emetics: Zofran - Pre ECT Airway Management Airway Management: Bag Mask Ventilation Treatment Recommendations No Changes Recommended: No change Notes: The patient's mood has improved even though that she has several stressors. Weekly ECT would be advisible at this moment. Pt Tolerated Procedure w/o Issue: Yes
[2022-10-14] MEDS: LORazepam 1 MG TABLET PO (08:03)
[2022-10-14] MEDS: Heparin Sodium,Porcine Flush 500 UNIT/5 ML SYRINGE IVFLUSH (08:06)
== END 2022-10-14 09:59 | disposition home or self-care (01) ==
PROVIDERS: Psychiatry & Neurology Psychiatry; PCP Pediatrics; Visit Provider Psychiatry & Neurology Psychiatry
PROC: (CPT 90870; principal; 2022-10-14 08:00)
DX: F25.1 Schizoaffective disorder, depressive type (principal); F43.10 Post-traumatic stress disorder, unspecified; F60.3 Borderline personality disorder; J44.9 Chronic obstructive pulmonary disease, unspecified; Z79.51 Long term (current) use of inhaled steroids; Z79.899 Other long term (current) drug therapy; Z88.8 Allergy status to other drugs, medicaments and biological substances; F17.210 Nicotine dependence, cigarettes, uncomplicated; Z20.822 Contact with and (suspected) exposure to COVID-19
CPT/HCPCS: 87635; 90870; J0330; J1642; J1885; J2405

== ENCOUNTER 2022-10-21 05:56 | Day surgery (SDC) | payer OTHER, SELFPAY ==
[2022-10-21] VITALS (8 sets, daily range): BP systolic 97–147; BP diastolic 61–88; PULSE 88–107; RESP 18–26; TEMP 36.3–36.8; O2SAT 94–98; BMI 40.4
[2022-10-21 06:35] LABS: COVID-19 Test Negative (Negative); IDNOW Serial# 6674DD1D
--- NOTE | 2022-10-21 06:44 | P.CONAN_ITS ---
[facility] Active Problems Active Problems: All Active Problems (Updated 10/07/22 @ 17:35 by JUANITO Cuevas) Injury of ligament of right knee (Acute) Sprain of anterior cruciate ligament of right knee (Acute) Hernia (Chronic) Schizoaffective disorder, depressive type (Chronic) Sprain of left foot (Acute) COVID-19 (Acute) COVID-19 (Acute) Chronic post-traumatic stress disorder (PTSD) (Chronic) Increased BMI (Acute) GERD (gastroesophageal reflux disease) (Acute) Borderline personality disorder (Chronic) Past Medical History Medical History Acute post-traumatic stress disorder Adjustment disorder Anxiety Asthma Borderline personality disorder Chronic post-traumatic stress disorder (PTSD) COPD (chronic obstructive pulmonary disease) Depression GERD (gastroesophageal reflux disease) History of electroconvulsive therapy Increased BMI Injury, self-inflicted Intentional self-harm PTSD (post-traumatic stress disorder) Recurrent major depression-severe Schizoaffective disorder Self-harming behavior Suicidal ideation Suicidal ideation Family History Family History Mother Brain cancer Other No family history of cardiac disease Family history of problems with anesthesia: No Surgical History History of Problems with Anesthesia: No Social History Social History Household Members: Other Household Members Other:: assisted Housing: Assisted Living Facility Housing Other:: assisted Do you presently have visiting nurse or other home services: No Alcohol intake: never Patient Tobacco Use Status: Current everyday Tobacco user Tobacco use type: Cigarette Cigarette Packs Per Day: 0.5 Cigarettes Per Day: 10.0 Years Smoked: 17 e-Cigarette/Vaping Use: Never Used Second Hand Smoke Exposure: Yes Substance Use Type: Marijuana Advance Directives: No Advance Directives Information Provided: Yes service: No Sexual orientation: Straight/Heterosexual Meds Allergies Allergy/AdvReac Type Severity Reaction Status Date / Time carbamazepine [From TEGRETOL] AdvReac Unknown NAUSEA & Verified 09/23/22 03:55 VOMITING Fish Containing Products AdvReac Stomach Verified 09/23/22 03:55 Upset Home Medications Medication Instructions Recorded Confirmed Last Taken Type acetaminophen 500 mg tablet 1 tab PO Q6H PRN pain 08/14/22 10/07/22 Unknown History albuterol sulfate 90 mcg/actuation 2 puff inhalation BID PRN Wheezing 08/14/22 10/07/22 Unknown History aerosol inhaler (ProAir HFA) benztropine 0.5 mg tablet 1 tab PO BID 08/14/22 10/07/22 Unknown History diphenhydramine HCl 50 mg capsule 2 cap PO BEDTIME 08/14/22 10/07/22 Unknown History (Banophen) duloxetine 60 mg capsule,delayed 1 cap PO QAM 08/14/22 10/07/22 Unknown History release ferrous sulfate 325 mg (65 mg 1 tab PO QAM 08/14/22 10/07/22 Unknown History iron) tablet,delayed release haloperidol 5 mg tablet 1 tab PO TID PRN Agitation 08/14/22 10/07/22 Unknown History hydroxyzine pamoate 50 mg capsule 1 cap PO BID PRN Anxiety 08/14/22 10/07/22 Unknown History nicotine (polacrilex) 2 mg gum 2 mg buccal Q2H PRN Smoking 08/14/22 10/07/22 Unknown History Cessation omeprazole 20 mg tablet,delayed 20 mg PO DAILY 08/14/22 10/07/22 Unknown History release prazosin 1 mg capsule 1 cap PO BEDTIME 08/14/22 10/07/22 Unknown History prazosin 5 mg capsule 3 cap PO BEDTIME 08/14/22 10/07/22 Unknown History zolpidem 10 mg tablet 1 tab PO BEDTIME 08/14/22 10/07/22 Unknown History cetirizine 10 mg tablet 1 tab PO DAILY 10/07/22 10/07/22 Unknown History fluticasone propionate 230 2 puff inhalation BID 10/07/22 10/07/22 Unknown History mcg-salmeterol 21 mcg/actuation HFA inhaler (Advair HFA) Exam Exam Date and Time: October 21, 2022 0644 Height,Weight and Vital Signs: Height 4 ft 11 in Weight 90.718 kg Last Vital Signs Temp 97.4 F 10/21/22 06:26 Pulse 107 H 10/21/22 06:26 Resp 22 H 10/21/22 06:26 BP 134/81 10/21/22 06:26 Pulse Ox 98 10/21/22 06:26 O2 Del Method 10/21/22 06:26 Pertinent Lab Results Pertinent Lab Results: Laboratory Tests 10/21/22 06:16 COVID-19 ([facility]) Negative COVID-19 Clin Com See Note Airway Mallampati Class: II Neck ROM: Full Heart: RRR Lungs: CTA Assessment and Plan Final Anesthetic Review Family History of Problems with Anesthesia: No History of Problems with Anesthesia: No ASA Class: III Final Preanesthetic Review: No Changes in Pt Med Stat, Meds/Allgs Chart Reviewed and Anes Risks/Benef Reviewed Patient Risk: Low Procedure Risk: Low Anesthetic Plan Anesthetic Plan: GA Disposition: Standard PACU
--- NOTE | 2022-10-21 07:07 | MHC.SHP ---
Pre-Procedural Eval Section A Date of Service: 10/21/22 The patient is an INPATIENT: No Changes since office visit: Yes Cold of Flu in the past 2 weeks, Yes New Medical Problems and Yes Patient answered all questions; No Changes in Medication The History & Physical has been completed within 30 days and I have reviewed it.: No Section B Chief Complaint: depression Details of Present Illness: hx recurrent depression ptsd Relevant Social History: Tobacco Use Present Medications: see Short Stay Collaborative assessment Medical History: Significant History (ASTHMA ) History of Previous Operations: No relevant previous surgery (ECT) Allergies: Allergies Allergy/AdvReac Type Severity Reaction Status Date / Time carbamazepine [From TEGRETOL] AdvReac Unknown NAUSEA & Verified 09/23/22 03:55 VOMITING Fish Containing Products AdvReac Stomach Verified 09/23/22 03:55 Upset Review of Systems Sugical H&P ROS: Negative: Cardiovascular and Yes, Specify: Respiratory (OCC COUGH SOB ) and Psychiatric (ANXIETY DYSPHORIA PASSIVE SI) Exam Surgical H&P Exam: Normal: Heart, Normal: Lungs (CLEAR) and Normal: Neurological and Significant Findings: Skin (SUPERFICIAL LACERATIONS ) Plan Diagnosis/Plan: Unchanged I have reviewed the history and physical and performed a pertinent physical examination on my patient. No changes have occurred unless specified. Time Spent With Patient Time: Total time managing care of this patient today ____ minutes.
--- NOTE | 2022-10-21 07:20 | HO.ECTPROC ---
ECT Procedure Note Diagnosis/Treatment Date of Service: 10/21/22 Diagnosis: Major Depressive Disorder and Other (ptsd) Treatment: Maintenance Interval Clinical Notes: pt feels ect stabilizing for mood ptsd sx no c/o side effects superficial cuts noted Time: Total time managing care of this patient today ____ minutes. ECT Settings Device: THYMATRON DGx Electrode Placement: Bitemporal Program/Pulse Width: 0.50 Energy Percent: 100 Seizure Duration By EEG (in seconds): 24 Medications Administration General Anesthetic: Etomidate (14) Muscle Relaxant: Succinylcholine (100) Ancillary Medications Analgesics: Torodol - Pre ECT Anti-emetics: Zofran - Pre ECT Miscillaneous Medications: Propofol Airway Management Airway Management: Bag Mask Ventilation Treatment Recommendations No Changes Recommended: No change Notes: will try to decrease from q week as possible Pt Tolerated Procedure w/o Issue: Yes
[2022-10-21] MEDS: Heparin Sodium,Porcine Flush 500 UNIT/5 ML SYRINGE IVFLUSH (08:30)
--- NOTE | 2022-10-21 09:46 | HO.POSTANES ---
Post Anesthesia Evaluation Post Anesthesia Evaluation Vital Signs: Vital Signs Temp Pulse Resp BP Pulse Ox O2 Del Method O2 Flow Rate 10/21/22 08:29 98.3 F 102 H 18 140/88 H 97 Room Air 10/21/22 08:14 94 18 147/84 H 94 Room Air 10/21/22 07:59 91 18 97/67 95 Nasal Cannula 2 10/21/22 07:44 95 21 H 119/69 94 Nasal Cannula 2 10/21/22 07:39 93 20 111/63 94 Nasal Cannula 2 10/21/22 07:34 90 26 H 130/61 94 Nasal Cannula 2 10/21/22 07:29 98.3 F 88 24 H 122/74 94 Nasal Cannula 4 10/21/22 06:26 97.4 F 107 H 22 H 134/81 98 Room Air Anesthesia: General Mental Status: Awake Pain Control: Satisfactory Nausea/Vomiting: None Hydration: Adequate Anesthesia-Related Issues: No Anes. Related Issues
== END 2022-10-21 09:09 | disposition home or self-care (01) ==
PROVIDERS: PCP Pediatrics; Visit Provider Psychiatry & Neurology Psychiatry
PROC: (CPT 90870; principal; 2022-10-21 08:00)
DX: F33.3 Major depressive disorder, recurrent, severe with psychotic symptoms (principal); F43.12 Post-traumatic stress disorder, chronic; F60.3 Borderline personality disorder; R45.88 Nonsuicidal self-harm; J44.9 Chronic obstructive pulmonary disease, unspecified; Z79.51 Long term (current) use of inhaled steroids; Z79.899 Other long term (current) drug therapy; Z88.8 Allergy status to other drugs, medicaments and biological substances; Z20.822 Contact with and (suspected) exposure to COVID-19
CPT/HCPCS: 87635; 90870; J0330; J1642; J1885; J2405

== ENCOUNTER 2022-10-26 20:13 | Emergency (ER) | payer OTHER, SELFPAY ==
[2022-10-26 20:22] VITALS: BP 133/86; PULSE 108; RESP 17; TEMP 36.5; O2SAT 97; BMI 44.9
[2022-10-26 20:50] VITALS: RESP 17
[2022-10-26] MEDS: OLANZapine 10 MG VIAL 5 MG IM (20:50)
[2022-10-26] MEDS: LORazepam 2 MG/ML VIAL IM (20:50)
[2022-10-26 20:54] LABS: MANUAL DIFF FLAG NO
[2022-10-26 20:59] LABS: Basophils Percent Auto 0.1 % (0-2); Eosinophils Percent Auto 0.4 % (0-4); Hematocrit 37.1 % (37.0-47.0); Hemoglobin 11.9 g/dl (12.0-16.0); Imm Gran Abs Auto 0.02 X10*3/uL (0.00-0.03); Imm Gran Pct Auto 0.3 % (0.0-0.4); Lymphocytes Absolute Auto 1.6 X10*3/uL (1.2-4.9); Lymphocytes Percent Auto 19.5 % (20-40); Mean Corpuscular HGB Conc 32.1 g/dl (31.0-35.0); Mean Corpuscular Hemoglobin 28.7 pg (27.0-33.0); Mean Corpuscular Volume 89.4 fL (80.0-98.0); Mean Platelet Volume 11.2 fL (9.4-12.3); Monocytes Absolute Auto 0.4 X10*3/uL (0.1-1.2); Monocytes Percent Auto 5.2 % (2-11); Neutrophils Absolute Auto 5.9 x10*3/uL (2.0-8.3); Neutrophils Percent Auto 74.5 % (45-73); Platelet Count 205 X10*3/uL (160-400); Red Blood Count 4.15 X10*6/uL (4.20-5.50); Red Cell Distribution Width 13.5 % (11.0-16.0); White Blood Count 7.9 X10*3/uL (4.8-10.8)
--- NOTE | 2022-10-26 21:03 | ED.PSYCH ---
HPI - Psych General Chief Complaint: Psychiatric Symptoms Stated Complaint: Crisis Time Seen by Provider: 10/26/22 20:17 Source: patient and EMS Mode of arrival: EMS Limitations: no limitations History of Present Illness HPI Narrative: 37-year-old female well known to our facility past medical history significant for schizoaffective disorder depressive type, borderline personality disorder,? PTSD, self-inflicted injuries presenting to the emergency department via ambulance for Suicidal ideation with plan to cut. Patient reports increasing life stressors tells me this past Wednesday was her sister's court case and she to me with a where it is causing her lot of stress. Patient tells me she has been cutting her wrist since this past , 4 days ago, patient is using clean razor blades. Patient up-to-date on tetanus shot. Patient tells me she cuts to feel something. Reports that she has only suicidal however not homicidal. Reports that she has visual and auditory hallucinations all the time telling her to cut herself. Denies drugs, alcohol and tobacco. No medical complaints. Related Data Home Medications Medication Instructions Recorded Confirmed acetaminophen 500 mg tablet 1 tab PO Q6H PRN pain 08/14/22 10/27/22 albuterol sulfate 90 mcg/actuation 2 puff inhalation BID PRN Wheezing 08/14/22 10/07/22 aerosol inhaler (ProAir HFA) diphenhydramine HCl 50 mg capsule 2 cap PO BEDTIME 08/14/22 10/07/22 (Banophen) duloxetine 60 mg capsule,delayed 1 cap PO QAM 08/14/22 10/07/22 release ferrous sulfate 325 mg (65 mg 1 tab PO QAM 08/14/22 10/07/22 iron) tablet,delayed release haloperidol 5 mg tablet 1 tab PO TID PRN Agitation 08/14/22 10/07/22 hydroxyzine pamoate 50 mg capsule 1 cap PO BID PRN Anxiety 08/14/22 10/07/22 nicotine (polacrilex) 2 mg gum 2 mg buccal Q2H PRN Smoking 08/14/22 10/07/22 Cessation omeprazole 20 mg tablet,delayed 20 mg PO DAILY 08/14/22 10/07/22 release prazosin 1 mg capsule 1 cap PO BEDTIME 08/14/22 10/07/22 zolpidem 10 mg tablet 1 tab PO BEDTIME 08/14/22 10/07/22 cetirizine 10 mg tablet 1 tab PO DAILY 10/07/22 10/07/22 fluticasone propionate 230 2 puff inhalation BID 10/07/22 10/07/22 mcg-salmeterol 21 mcg/actuation HFA inhaler (Advair HFA) benztropine 0.5 mg tablet 1 tab PO BID 10/26/22 10/26/22 clonidine HCl 0.1 mg tablet 1 tab PO TID 10/26/22 10/26/22 duloxetine 60 mg capsule,delayed 1 cap PO DAILY 10/26/22 10/26/22 release ferrous sulfate 325 mg (65 mg 1 tab PO DAILY 10/26/22 10/26/22 iron) tablet,delayed release haloperidol decanoate 100 mg/mL 100 mg IM Q4W 10/26/22 10/26/22 intramuscular solution lithium carbonate 300 mg tablet 300 mg PO DAILY@1700 10/26/22 10/26/22 prazosin 5 mg capsule 5 mg PO BEDTIME 10/26/22 10/26/22 Previous Rx's Medication Instructions Recorded docusate sodium 100 mg capsule 100 mg PO BID 30 days #60 caps 09/01/22 haloperidol decanoate 50 mg/mL 75 mg (1.5 mL) IM Q28D #0 mL 09/01/22 intramuscular solution trazodone 50 mg tablet 150 mg PO BEDTIME 30 days #90 tabs 09/01/22 Allergies Allergy/AdvReac Type Severity Reaction Status Date / Time carbamazepine [From TEGRETOL] AdvReac Unknown NAUSEA & Verified 09/23/22 03:55 VOMITING Fish Containing Products AdvReac Stomach Verified 09/23/22 03:55 Upset Review of Systems Review of Systems: Constitutional : No Weight loss, No Fever, No Chills, No Fatigue, No Malaise ENT/Mouth : No sore throat, No Rhinorrhea Eyes: No Eye Pain, No Swelling, No Redness Cardiovascular : No Chest Pain, No SOB, No Dyspnea on Exertion, No Orthopnea, No Edema, No Palpitations Respiratory : No Cough, No Sputum, No Wheezing Gastrointestinal : No Nausea, No Vomiting, No Diarrhea, No Constipation, No abdominal Pain, No Hematochezia, No Melena Genitourinary : No Dysuria, No Urinary Frequency, No Hematuria, Musculoskeletal : No joint pain, No Myalgias, No Joint Swelling Skin : No Skin Lesions, No rash Neuro : No Weakness, No Numbness, No Dizziness, No Headache Psych : + Anxiety/Panic, + Depression, + SI, No HI All other systems reviewed and are negative Yes all other systems are reviewed and are negative [facility] Past Medical History Attestation statement: The following information was validated with the patient. Source: old records reviewed and nursing notes reviewed Medical History Acute post-traumatic stress disorder Adjustment disorder Anxiety Asthma Borderline personality disorder Chronic post-traumatic stress disorder (PTSD) COPD (chronic obstructive pulmonary disease) Depression GERD (gastroesophageal reflux disease) History of electroconvulsive therapy Increased BMI Injury, self-inflicted Intentional self-harm PTSD (post-traumatic stress disorder) Recurrent major depression-severe Schizoaffective disorder Self-harming behavior Suicidal ideation Suicidal ideation Family History Family History Mother Brain cancer Other No family history of cardiac disease Social History Social History Household Members: Other Household Members Other:: half-way Housing: Assisted Living Facility Housing Other:: half-way Do you presently have visiting nurse or other home services: No Alcohol intake: never Patient Tobacco Use Status: Current everyday Tobacco user Tobacco use type: Cigarette Cigarette Packs Per Day: 0.5 Cigarettes Per Day: 10.0 Years Smoked: 17 e-Cigarette/Vaping Use: Never Used Second Hand Smoke Exposure: Yes Substance Use Type: Marijuana Advance Directives: No Advance Directives Information Provided: No service: No Sexual orientation: Straight/Heterosexual Physical Exam Vital Signs: Vital Signs: Last Vital Signs Temp 97.7 F 10/26/22 20:22 Pulse 108 H 10/26/22 20:22 Resp 15 10/26/22 21:50 BP 133/86 10/26/22 20:22 Pulse Ox 97 10/26/22 20:22 O2 Del Method 10/26/22 20:22 BMI result Body Mass Index 44.9 vital signs stable Appearance: Alert.? Oriented X3.? No acute distress.? Head: Normocephalic, atraumatic, no step-offs or deformities Eyes: Pupils equal, round and reactive to light.? Neck: Normal inspection.? Neck supple.? CVS: Normal heart rate and rhythm.? Pulses normal.? Respiratory: No respiratory distress.? Breath sounds normal.? Abdomen: Soft and nontender.? Skin: Skin warm and dry.? Normal skin color.? Normal skin turgor.? superficial abrasions over bilateral upper extremities, no active bleeding. Extremities: No lower extremity edema.? No calf ttp. 5/5 strength to bilateral upper and lower extremities Neuro: Oriented X 3.? No motor deficit.? No sensory deficit. CN 2-12 intact Course Reevaluation(s) Reevaluation #1: CBC appears to be around normal limits. Chemistry unremarkable. UA clean. Negative . negative . Patient negative for salicylates, acetaminophen, ethanol. CHANDLER + for marijuana. [place] low will do med rec to continue home meds. at this time patient will be placed into observation to allow more time to be evaluated by the behavioral health team. At time observation was started patient korey cooperative no acute distress will continue to monitor. Time: 00:16 Medications Administered Discontinued Medications Generic Name Dose Route Start Last Admin Trade Name Griffinq PRN Reason Stop Dose Admin Lorazepam 2 mg 10/26/22 20:42 10/26/22 20:50 Lorazepam 2 Mg/Ml Vial IM 10/26/22 20:43 2 mg ONCE ONE Administration Olanzapine 5 mg 10/26/22 20:42 10/26/22 20:50 Olanzapine 10 Mg Vial IM 10/26/22 20:43 5 mg STAT STA Administration Medical Decision Making Medical Decision Making [facility] Narrative: 37-year-old female presents with a PMHx of schizoaffective disorder depressive type, borderline personality disorder,? PTSD, self-inflicted injuries presenting with depression, SI PE remarkable for superficial abrasions over bilateral upper extremities, no active bleeding. Likely PTSD, suicidal ideation, depression, BPD, schizoaffective disorder depressive type, self-mutilation.? Less likely metabolic disturbances, electrolyte imbalances Plan at this time is medical clearance and evaluation by the behavioral health team. Momenmts after patient arrived patient started banging her head and becoming combative, medication restraints ordered. Harm to self and others. Differential Diagnosis Differential Diagnoses: The differential diagnosis associated with the presentation includes Likely PTSD, suicidal ideation, depression, BPD, schizoaffective disorder depressive type, self-mutilation.? Less likely metabolic disturbances, electrolyte imbalances Admission/Observation Consideration of admission/observation: Escalation of care including admission/observation considered unlikely Lab Data MDM Lab Attestation statement: I reviewed the patient's lab results. 10/26/22 20:32 10/26/22 20:47 Labs: Lab Results 10/26/22 10/26/22 10/26/22 Range/Units 20:32 20:47 20:47 WBC 7.9 (4.8-10.8) X10*3/uL RBC 4.15 L (4.20-5.50) X10*6/uL Hgb 11.9 L (12.0-16.0) g/dl Hct 37.1 (37.0-47.0) % MCV 89.4 (80.0-98.0) fL MCH 28.7 (27.0-33.0) pg MCHC 32.1 (31.0-35.0) g/dl RDW 13.5 (11.0-16.0) % Plt Count 205 (160-400) X10*3/uL MPV 11.2 (9.4-12.3) fL Immature Gran % (Auto) 0.3 (0.0-0.4) % Neut % (Auto) 74.5 H (45-73) % Lymph % (Auto) 19.5 L (20-40) % Harris % (Auto) 5.2 (2-11) % Eos % (Auto) 0.4 (0-4) % Baso % (Auto) 0.1 (0-2) % Lymph # (Auto) 1.6 (1.2-4.9) X10*3/uL Harris # (Auto) 0.4 (0.1-1.2) X10*3/uL Eos # (Auto) 0.0 (0.0-0.4) X10*3/uL Baso # (Auto) 0.0 (0.0-0.2) X10*3/uL Abs Immat Gran (auto) 0.02 (0.00-0.03) X10*3/uL Absolute Neuts (auto) 5.9 (2.0-8.3) x10*3/uL Absolute Nucleated RBC 0.000 (0.0-0.012) X10*3/uL Nucleated RBC % (auto) 0.0 (0.0-0.2) /100WBC Sodium 138 (135-145) mmol/L Potassium 4.0 (3.3-5.1) mmol/L Chloride 107 (96-108) mmol/L Carbon Dioxide 24 (22-29) mmol/L Anion Gap 11 L (12-20) BUN 8 L (9-16) mg/dL Creatinine 0.68 (0.5-1.4) mg/dL Estim Creat Clear Calc 124.6 Estimated GFR > 60 Random Glucose 99 (60-115) mg/dL Calcium 8.9 (8.4-10.2) mg/dL Total Bilirubin 0.3 (0.0-1.0) mg/dL AST 12 (5-31) U/L ALT 10 (0-31) U/L Alkaline Phosphatase 68 (39-117) U/L Total Protein 6.5 (6.5-8.0) g/dL Albumin 4.1 (3.5-5.0) g/dL Urine Color Urine Appearance Urine pH (5.0-9.0) Ur Specific [place] (1.005-1.025) Urine Protein (Neg-Trace) mg/dL Urine Glucose (UA) (Negative) mg/dL Urine Ketones (Negative) mg/dL Urine Blood (Negative) Urine Nitrite (Negative) Ur Leukocyte Esterase (Negative) Urine Test (NEGATIVE) Salicylates (15-30) mg/dL Urine Opiates Screen (Not Detect) Urine Fentanyl Screen (Not Detect) Acetaminophen (<30) mcg/mL Ur Barbiturates Screen (Not Detect) Ur Phencyclidine Scrn (Not Detect) Ur Amphetamines Screen (Not Detect) U Benzodiazepines Scrn (Not Detect) [place] 0.28 L (0.60-1.20) mmol/L Urine Cocaine Screen (Not Detect) U Marijuana (THC) Screen (Not Detect) Ethyl Alcohol mg/dL COVID-19 (RAFAL) (Negative) COVID-19 Clin Com 10/26/22 10/26/22 10/26/22 Range/Units 20:47 20:47 21:20 WBC (4.8-10.8) X10*3/uL RBC (4.20-5.50) X10*6/uL Hgb (12.0-16.0) g/dl Hct (37.0-47.0) % MCV (80.0-98.0) fL MCH (27.0-33.0) pg MCHC (31.0-35.0) g/dl RDW (11.0-16.0) % Plt Count (160-400) X10*3/uL MPV (9.4-12.3) fL Immature Gran % (Auto) (0.0-0.4) % Neut % (Auto) (45-73) % Lymph % (Auto) (20-40) % Harris % (Auto) (2-11) % Eos % (Auto) (0-4) % Baso % (Auto) (0-2) % Lymph # (Auto) (1.2-4.9) X10*3/uL Harris # (Auto) (0.1-1.2) X10*3/uL Eos # (Auto) (0.0-0.4) X10*3/uL Baso # (Auto) (0.0-0.2) X10*3/uL Abs Immat Gran (auto) (0.00-0.03) X10*3/uL Absolute Neuts (auto) (2.0-8.3) x10*3/uL Absolute Nucleated RBC (0.0-0.012) X10*3/uL Nucleated RBC % (auto) (0.0-0.2) /100WBC Sodium (135-145) mmol/L Potassium (3.3-5.1) mmol/L Chloride (96-108) mmol/L Carbon Dioxide (22-29) mmol/L Anion Gap (12-20) BUN (9-16) mg/dL Creatinine (0.5-1.4) mg/dL Estim Creat Clear Calc Estimated GFR Random Glucose (60-115) mg/dL Calcium (8.4-10.2) mg/dL Total Bilirubin (0.0-1.0) mg/dL AST (5-31) U/L ALT (0-31) U/L Alkaline Phosphatase (39-117) U/L Total Protein (6.5-8.0) g/dL Albumin (3.5-5.0) g/dL Urine Color Urine Appearance Urine pH (5.0-9.0) Ur Specific [place] (1.005-1.025) Urine Protein (Neg-Trace) mg/dL Urine Glucose (UA) (Negative) mg/dL Urine Ketones (Negative) mg/dL Urine Blood (Negative) Urine Nitrite (Negative) Ur Leukocyte Esterase (Negative) Urine Test (NEGATIVE) Salicylates < 5.0 L (15-30) mg/dL Urine Opiates Screen (Not Detect) Urine Fentanyl Screen (Not Detect) Acetaminophen < 17 (<30) mcg/mL Ur Barbiturates Screen (Not Detect) Ur Phencyclidine Scrn (Not Detect) Ur Amphetamines Screen (Not Detect) U Benzodiazepines Scrn (Not Detect) [place] (0.60-1.20) mmol/L Urine Cocaine Screen (Not Detect) U Marijuana (THC) Screen (Not Detect) Ethyl Alcohol < 10 mg/dL COVID-19 (RAFAL) Negative (Negative) COVID-19 Clin Com See Note 10/26/22 10/26/22 10/26/22 Range/Units 21:25 21:25 21:25 WBC (4.8-10.8) X10*3/uL RBC (4.20-5.50) X10*6/uL Hgb (12.0-16.0) g/dl Hct (37.0-47.0) % MCV (80.0-98.0) fL MCH (27.0-33.0) pg MCHC (31.0-35.0) g/dl RDW (11.0-16.0) % Plt Count (160-400) X10*3/uL MPV (9.4-12.3) fL Immature Gran % (Auto) (0.0-0.4) % Neut % (Auto) (45-73) % Lymph % (Auto) (20-40) % Harris % (Auto) (2-11) % Eos % (Auto) (0-4) % Baso % (Auto) (0-2) % Lymph # (Auto) (1.2-4.9) X10*3/uL Harris # (Auto) (0.1-1.2) X10*3/uL Eos # (Auto) (0.0-0.4) X10*3/uL Baso # (Auto) (0.0-0.2) X10*3/uL Abs Immat Gran (auto) (0.00-0.03) X10*3/uL Absolute Neuts (auto) (2.0-8.3) x10*3/uL Absolute Nucleated RBC (0.0-0.012) X10*3/uL Nucleated RBC % (auto) (0.0-0.2) /100WBC Sodium (135-145) mmol/L Potassium (3.3-5.1) mmol/L Chloride (96-108) mmol/L Carbon Dioxide (22-29) mmol/L Anion Gap (12-20) BUN (9-16) mg/dL Creatinine (0.5-1.4) mg/dL Estim Creat Clear Calc Estimated GFR Random Glucose (60-115) mg/dL Calcium (8.4-10.2) mg/dL Total Bilirubin (0.0-1.0) mg/dL AST (5-31) U/L ALT (0-31) U/L Alkaline Phosphatase (39-117) U/L Total Protein (6.5-8.0) g/dL Albumin (3.5-5.0) g/dL Urine Color Yellow Urine Appearance Clear Urine pH 8.0 (5.0-9.0) Ur Specific [place] <= 1.005 (1.005-1.025) Urine Protein Negative (Neg-Trace) mg/dL Urine Glucose (UA) Negative (Negative) mg/dL Urine Ketones Negative (Negative) mg/dL Urine Blood Negative (Negative) Urine Nitrite Negative (Negative) Ur Leukocyte Esterase Negative (Negative) Urine Test NEGATIVE (NEGATIVE) Salicylates (15-30) mg/dL Urine Opiates Screen Not Detected (Not Detect) Urine Fentanyl Screen Not Detected (Not Detect) Acetaminophen (<30) mcg/mL Ur Barbiturates Screen Not Detected (Not Detect) Ur Phencyclidine Scrn Not Detected (Not Detect) Ur Amphetamines Screen Not Detected (Not Detect) U Benzodiazepines Scrn Not Detected (Not Detect) [place] (0.60-1.20) mmol/L Urine Cocaine Screen Not Detected (Not Detect) U Marijuana (THC) Screen POSITIVE H (Not Detect) Ethyl Alcohol mg/dL COVID-19 (RAFAL) (Negative) COVID-19 Clin Com Core Measures AMI core measures followed: Yes Measure exclusions: not indicated Critical Care Time Critical Care Time Critical Care Time: No Discharge Plan Discharge Clinical Impression: Acute anxiety, Bipolar disorder Patient Disposition: Still a Patient Prescriptions: No Action haloperidol 5 mg tablet 1 tab PO TID PRN (Reason: Agitation) diphenhydramine HCl [Banophen] 50 mg capsule 2 cap PO BEDTIME prazosin 1 mg capsule 1 cap PO BEDTIME hydroxyzine pamoate 50 mg capsule 1 cap PO BID PRN (Reason: Anxiety) zolpidem 10 mg tablet 1 tab PO BEDTIME ferrous sulfate 325 mg (65 mg iron) tablet,delayed release (DR/EC) 1 tab PO QAM duloxetine 60 mg capsule,delayed release(DR/EC) 1 cap PO QAM acetaminophen 500 mg tablet 1 tab PO Q6H PRN (Reason: pain) albuterol sulfate [ProAir HFA] 90 mcg/actuation HFA aerosol inhaler 2 puff inhalation BID PRN (Reason: Wheezing) nicotine (polacrilex) 2 mg Gum 2 mg BUCCAL Q2H PRN (Reason: Smoking Cessation) omeprazole 20 mg Tablet,Delayed Release (Dr/Ec) 20 mg PO DAILY lithium carbonate 300 mg tablet 300 mg PO DAILY@1700 clonidine HCl 0.1 mg tablet 1 tab PO TID benztropine 0.5 mg tablet 1 tab PO BID haloperidol decanoate 100 mg/mL solution 100 mg IM Q4W prazosin 5 mg capsule 5 mg PO BEDTIME ferrous sulfate 325 mg (65 mg iron) tablet,delayed release (DR/EC) 1 tab PO DAILY duloxetine 60 mg capsule,delayed release(DR/EC) 1 cap PO DAILY trazodone 50 mg Tablet 150 mg PO BEDTIME 30 Days Qty: 90 0RF docusate sodium 100 mg Capsule 100 mg PO BID 30 Days Qty: 60 0RF Rx Instructions: HOLD FOR LOOSE STOOL haloperidol decanoate 50 mg/mL Solution 75 mg IM Q28D Qty: 0 0RF cetirizine 10 mg tablet 1 tab PO DAILY Advair HFA 230-21 mcg/actuation HFA aerosol inhaler 2 puff INHALATION BID
[2022-10-26 21:05] VITALS: RESP 16
[2022-10-26 21:14] LABS: Lithium 0.28 mmol/L (0.60-1.20)
[2022-10-26 21:20] VITALS: RESP 15
[2022-10-26 21:21] LABS: Ethanol < 10 mg/dL
[2022-10-26 21:22] LABS: Alanine Aminotransferase 10 U/L (0-31); Albumin Level 4.1 g/dL (3.5-5.0); Alkaline Phosphatase 68 U/L (39-117); Anion Gap 11 (12-20); Aspartate Amino Transferase 12 U/L (5-31); Bilirubin Total 0.3 mg/dL (0.0-1.0); Blood Urea Nitrogen 8 mg/dL (9-16); Calcium 8.9 mg/dL (8.4-10.2); Carbon Dioxide 24 mmol/L (22-29); Chloride 107 mmol/L (96-108); Creatinine Clr Calc Pharmacy 124.6; Estimated Glomerular Filt Rate > 60; Glucose Random 99 mg/dL (60-115); Sodium 138 mmol/L (135-145); Total Protein 6.5 g/dL (6.5-8.0)
[2022-10-26 21:28] LABS: Salicylate < 5.0 mg/dL (15-30)
[2022-10-26 21:35] VITALS: RESP 14
[2022-10-26 21:36] LABS: Appearance Urine Clear; Color Urine Yellow; Glucose Urine UA Negative (Negative); Leukocyte Esterase Urine Negative (Negative); Nitrite Urine Negative (Negative); Specific Gravity - Urine <= 1.005 (1.005-1.025); Urine Blood Negative (Negative); Urine Ketones Negative (Negative); Urine Protein Negative (Neg-Trace)
[2022-10-26 21:36] LABS: Acetaminophen LAB < 17 mcg/mL (<30)
[2022-10-26 21:38] LABS: UPreg QC Valid YES; Urine Pregnancy NEGATIVE (NEGATIVE)
[2022-10-26 21:48] LABS: Amphetamine Screen Urine Not Detected (Not Detect); Barbiturates, Urine Not Detected (Not Detect); Benzodiazepines Screen Urine Not Detected (Not Detect); Cannabinoid Screen Urine POSITIVE (Not Detect); Cocaine Screen Urine Not Detected (Not Detect); Fentanyl, urine Not Detected (Not Detect); Opiate Screen Urine Not Detected (Not Detect); Phencyclidine Screen Urine Not Detected (Not Detect)
[2022-10-26 21:50] VITALS: RESP 15
[2022-10-26 21:56] LABS: COVID-19 Test Negative (Negative); IDNOW Serial# 6674DD1D
--- NOTE | 2022-10-27 05:27 | PC.NURSE ---
Patient at the time arrival, agitated, restlessness, threatening to self harm, engaged in self abusive behavior by head banging against the wall, provider notified/ordered Olanzapine 5 mg IM and Ativan 2 mg IM/administered at 2049 with + effect, slept through the night, patient is on 1:1 for safety due to past suicidal attempt, med rec completed/MAR active, care consult ordered/pending evaluation, VSS, will continue to monitor.
[2022-10-27 06:15] VITALS: RESP 16
--- NOTE | 2022-10-27 07:50 | PC.NURSE ---
pt is sleeping resp even and unlabored.
--- NOTE | 2022-10-27 10:10 | PC.NURSE ---
pt continues to sleep, resp even and unlabored.
[2022-10-27] MEDS: Ferrous Sulfate 324 MG TABLET.DR PO (10:45)
[2022-10-27] MEDS: DULoxetine HCl 60 MG CAPSULE.DR PO (10:45)
[2022-10-27] MEDS: cloNIDine HCL 0.1 MG TABLET PO (10:45)
[2022-10-27] MEDS: Benztropine Mesylate 0.5 MG TABLET PO (10:45)
--- NOTE | 2022-10-27 10:50 | PC.NURSE ---
pt is a/o 4 no sob/michael noted pt is awake and amb (i) gait steady to nursing station. pt is inquiring about getting home. pt states that she is feeling better. states that she was struggling because she lost a friend this past wednesday and her sister's court case. pt l inner lower forearm with superficial lac cleansed and a bandaid applied. pt appear to be in good spirits.
[2022-10-27 11:34] VITALS: BP 113/80; PULSE 89; RESP 19; TEMP 36.4; O2SAT 97
--- NOTE | 2022-10-27 11:59 | PC.NURSE ---
plan is for patients staff to pick her up in 45 min she is cooperative and agreeable to discharge plan
--- NOTE | 2022-10-27 12:10 | MHC.CARE ---
Patient evaluated by the CARE Team she does not need inpatient psychiatric treatment at this time and is clear for discharge. Written assessment to follow. ED provider, Dr. Sanches updated and in agreement with plan.
--- NOTE | 2022-10-27 13:08 | MHC.CARE ---
Patient is a 37 year-old woman, well known to [facility], came to the ED last night by ambulance from home called by staff in response to patient in distress, self harming and making suicidal statements. Last night here at the hospital was challenging for patient, shortly after arrival she required a chemical restraint due to head banging and combativeness. Patient is known to become dysregulated and self harm, being difficult to redirect when in upset, she typically calms after getting some rest. This morning patient stated she feels better and would like to discharge back home. CARE Team spoke to her in room 4 in the POD, she was alert, oriented and easily engaged, stated that she was really struggling the last few days and yesterday was the worst. Said that she felt she needed to be here where she felt safe and could be contained but no longer feels unsafe. Patient denied suicidal ideation, plan or intention, said she is no longer having hallucinations, was looking forward to going home. CARE Team and outpatient providers consider this patient to be a good self advocate who able to make her needs known and be honest about how she is feeling. Spoke to patient?s director of group sales who had no concerns about patient returning home and would send staff to pick her up. ED provider, Dr. Chau consulted and in agreement with plan to discharge patient.
== END 2022-10-27 12:33 | disposition home or self-care (01) ==
PROVIDERS: Physician Assistant; Emergency Provider Emergency Medicine Emergency Medical Services; PCP Pediatrics
DX: F25.1 Schizoaffective disorder, depressive type (principal); F41.1 Generalized anxiety disorder; F43.0 Acute stress reaction; R45.851 Suicidal ideations; F17.210 Nicotine dependence, cigarettes, uncomplicated; Z20.828 Contact with and (suspected) exposure to other viral communicable diseases; Z20.822 Contact with and (suspected) exposure to COVID-19; Z71.6 Tobacco abuse counseling; Z79.899 Other long term (current) drug therapy
CPT/HCPCS: 36415; 80053; 80143; 80178; 80179; 80307; 81003; 81025; 82077; 85025; 87635; 96372; 99283; 99284; 99285; J2060

== ENCOUNTER 2022-10-28 06:30 | Day surgery (SDC) | payer OTHER, SELFPAY ==
[2022-10-28] VITALS (8 sets, daily range): BP systolic 115–135; BP diastolic 74–91; PULSE 90–104; RESP 12–20; TEMP 36.4–36.8; O2SAT 97–100; BMI 40.4
--- NOTE | 2022-10-28 06:39 | HO.ANESPROP2 ---
[facility] Active Problems Active Problems: All Active Problems (Updated 10/28/22 @ 00:00 by Adiel Sevilla) Injury of ligament of right knee (Acute) Sprain of anterior cruciate ligament of right knee (Acute) Hernia (Chronic) Schizoaffective disorder, depressive type (Chronic) Sprain of left foot (Acute) COVID-19 (Acute) COVID-19 (Acute) Chronic post-traumatic stress disorder (PTSD) (Chronic) Increased BMI (Acute) GERD (gastroesophageal reflux disease) (Acute) Borderline personality disorder (Chronic) Past Medical History Medical History Acute post-traumatic stress disorder Adjustment disorder Anxiety Asthma Borderline personality disorder Chronic post-traumatic stress disorder (PTSD) COPD (chronic obstructive pulmonary disease) Depression GERD (gastroesophageal reflux disease) History of electroconvulsive therapy Increased BMI Injury, self-inflicted Intentional self-harm PTSD (post-traumatic stress disorder) Recurrent major depression-severe Schizoaffective disorder Self-harming behavior Suicidal ideation Suicidal ideation Family History Family History Mother Brain cancer Other No family history of cardiac disease Family history of problems with anesthesia: No Surgical History History of Problems with Anesthesia: No Social History Social History Household Members: Other Household Members Other:: shelter Housing: Assisted Living Facility Housing Other:: shelter Do you presently have visiting nurse or other home services: No Alcohol intake: never Patient Tobacco Use Status: Current everyday Tobacco user Tobacco use type: Cigarette Cigarette Packs Per Day: 0.5 Cigarettes Per Day: 10.0 Years Smoked: 17 e-Cigarette/Vaping Use: Never Used Second Hand Smoke Exposure: Yes Substance Use Type: Marijuana Advance Directives: No Advance Directives Information Provided: Yes service: No Sexual orientation: Straight/Heterosexual Meds Allergies Allergy/AdvReac Type Severity Reaction Status Date / Time carbamazepine [From TEGRETOL] AdvReac Unknown NAUSEA & Verified 09/23/22 03:55 VOMITING Fish Containing Products AdvReac Stomach Verified 09/23/22 03:55 Upset Home Medications Medication Instructions Recorded Confirmed Last Taken Type acetaminophen 500 mg tablet 1 tab PO Q6H PRN pain 08/14/22 10/27/22 Unknown History albuterol sulfate 90 mcg/actuation 2 puff inhalation BID PRN Wheezing 08/14/22 10/27/22 Unknown History aerosol inhaler (ProAir HFA) diphenhydramine HCl 50 mg capsule 2 cap PO BEDTIME 08/14/22 10/27/22 Unknown History (Banophen) haloperidol 5 mg tablet 1 tab PO TID PRN Agitation 08/14/22 10/27/22 Unknown History hydroxyzine pamoate 50 mg capsule 1 cap PO BID PRN Anxiety 08/14/22 10/27/22 Unknown History nicotine (polacrilex) 2 mg gum 2 mg buccal Q2H PRN Smoking 08/14/22 10/27/22 Unknown History Cessation omeprazole 20 mg tablet,delayed 20 mg PO DAILY 08/14/22 10/27/22 Unknown History release zolpidem 10 mg tablet 1 tab PO BEDTIME 08/14/22 10/27/22 Unknown History cetirizine 10 mg tablet 1 tab PO DAILY 10/07/22 10/27/22 Unknown History fluticasone propionate 230 2 puff inhalation BID 10/07/22 10/27/22 Unknown History mcg-salmeterol 21 mcg/actuation HFA inhaler (Advair HFA) benztropine 0.5 mg tablet 1 tab PO BID 10/26/22 10/26/22 Unknown History clonidine HCl 0.1 mg tablet 1 tab PO TID 10/26/22 10/26/22 Unknown History duloxetine 60 mg capsule,delayed 1 cap PO DAILY 10/26/22 10/26/22 Unknown History release ferrous sulfate 325 mg (65 mg 1 tab PO DAILY 10/26/22 10/26/22 Unknown History iron) tablet,delayed release haloperidol decanoate 100 mg/mL 100 mg IM Q4W 10/26/22 10/26/22 10/21/22 History intramuscular solution lithium carbonate 300 mg tablet 300 mg PO DAILY@1700 10/26/22 10/26/22 Unknown History prazosin 5 mg capsule 5 mg PO BEDTIME 10/26/22 10/26/22 Unknown History Exam Exam Date and Time: October 28, 2022 0639 Airway Mallampati Class: II TM Dist: >3cm Neck ROM: Full Heart: rrr Lungs: cta Assessment and Plan Assessment Anesthesia Assessment: Anesthesia Plan Discussed and Chart Reviewed Final Anesthetic Review Family History of Problems with Anesthesia: No History of Problems with Anesthesia: No NPO: Yes ASA Class: III Final Preanesthetic Review: No Changes in Pt Med Stat, Meds/Allgs Chart Reviewed and Consent Obtained/Reviewed Patient Risk: Intermediate Procedure Risk: Intermediate Anesthetic Plan Anesthetic Plan: GA Disposition: Standard PACU
--- NOTE | 2022-10-28 07:00 | MHC.SHP ---
Pre-Procedural Eval Section A Date of Service: 10/28/22 The patient is an INPATIENT: No Changes since office visit: No Cold of Flu in the past 2 weeks, No New Medical Problems, No Changes in Medication and No Patient answered all questions The History & Physical has been completed within 30 days and I have reviewed it.: Yes Section B Chief Complaint: disorder Allergies: Allergies Allergy/AdvReac Type Severity Reaction Status Date / Time carbamazepine [From TEGRETOL] AdvReac Unknown NAUSEA & Verified 09/23/22 03:55 VOMITING Fish Containing Products AdvReac Stomach Verified 09/23/22 03:55 Upset Plan I have reviewed the history and physical and performed a pertinent physical examination on my patient. No changes have occurred unless specified. Time Spent With Patient Time: Total time managing care of this patient today ____ minutes.
--- NOTE | 2022-10-28 07:00 | HO.ECTPROC ---
ECT Procedure Note Diagnosis/Treatment Date of Service: 10/28/22 Diagnosis: Schizoaffective Disorder Previous ECT Date: 10/21/22 Treatment: Maintenance Interval Clinical Notes: The patient reports some improvement of dysphoria but she was on the ED last week for self-harming thoughts. She reports that ECT works very well for her. Probably, she will need ECT as prescribed right now and not lower yet. Time: Total time managing care of this patient today __30__ minutes. ECT Settings Device: THYMATRON DGx Electrode Placement: Bitemporal Program/Pulse Width: 0.50 Energy Percent: 100 Seizure Duration By EEG (in seconds): 20 By Motor Observation (in seconds): 16 Medications Administration General Anesthetic: Etomidate (14) Muscle Relaxant: Succinylcholine (100) Ancillary Medications Analgesics: Torodol - Pre ECT Anti-emetics: Zofran - Pre ECT Miscillaneous Medications: Propofol Airway Management Airway Management: Bag Mask Ventilation Treatment Recommendations No Changes Recommended: No change Notes: No change of schedule yet, she was on the ED for nearly a day this week. Pt Tolerated Procedure w/o Issue: Yes
[2022-10-28 07:09] LABS: COVID-19 Test Negative (Negative); IDNOW Serial# 08D9AD1C
== END 2022-10-28 09:15 | disposition home or self-care (01) ==
PROVIDERS: Psychiatry & Neurology Psychiatry; PCP Pediatrics; Visit Provider Psychiatry & Neurology Psychiatry
PROC: (CPT 90870; principal; 2022-10-28 07:30)
DX: F25.9 Schizoaffective disorder, unspecified (principal); F60.3 Borderline personality disorder; F43.12 Post-traumatic stress disorder, chronic; G47.34 Idiopathic sleep related nonobstructive alveolar hypoventilation; Z72.89 Other problems related to lifestyle; Z79.51 Long term (current) use of inhaled steroids; Z79.899 Other long term (current) drug therapy; Z88.8 Allergy status to other drugs, medicaments and biological substances; Z20.822 Contact with and (suspected) exposure to COVID-19; F17.210 Nicotine dependence, cigarettes, uncomplicated
CPT/HCPCS: 87635; 90870; J0330; J1642; J1885; J2405

== ENCOUNTER 2022-11-04 06:13 | Day surgery (SDC) | payer OTHER, SELFPAY ==
[2022-11-04] VITALS (7 sets, daily range): BP systolic 121–165; BP diastolic 71–94; PULSE 98–117; RESP 16–22; TEMP 36.6–37.1; O2SAT 93–98; BMI 40.4
[2022-11-04 06:54] LABS: COVID-19 Test Negative (Negative); IDNOW Serial# 16C4AD1C
--- NOTE | 2022-11-04 06:55 | HO.ANESPROP2 ---
[facility] Active Problems Active Problems: All Active Problems (Updated 10/28/22 @ 00:00 by Adiel Sevilla) Injury of ligament of right knee (Acute) Sprain of anterior cruciate ligament of right knee (Acute) Hernia (Chronic) Schizoaffective disorder, depressive type (Chronic) Sprain of left foot (Acute) COVID-19 (Acute) COVID-19 (Acute) Chronic post-traumatic stress disorder (PTSD) (Chronic) Increased BMI (Acute) GERD (gastroesophageal reflux disease) (Acute) Borderline personality disorder (Chronic) Past Medical History Medical History Acute post-traumatic stress disorder Adjustment disorder Anxiety Asthma Borderline personality disorder Chronic post-traumatic stress disorder (PTSD) COPD (chronic obstructive pulmonary disease) Depression GERD (gastroesophageal reflux disease) History of electroconvulsive therapy Increased BMI Injury, self-inflicted Intentional self-harm PTSD (post-traumatic stress disorder) Recurrent major depression-severe Schizoaffective disorder Self-harming behavior Suicidal ideation Suicidal ideation Family History Family History Mother Brain cancer Other No family history of cardiac disease Family history of problems with anesthesia: No Surgical History History of Problems with Anesthesia: No Social History Social History Household Members: Other Household Members Other:: long-term Housing: Assisted Living Facility Housing Other:: long-term Do you presently have visiting nurse or other home services: No Alcohol intake: never Patient Tobacco Use Status: Current everyday Tobacco user Tobacco use type: Cigarette Cigarette Packs Per Day: 0.5 Cigarettes Per Day: 10.0 Years Smoked: 17 e-Cigarette/Vaping Use: Never Used Second Hand Smoke Exposure: Yes Substance Use Type: Marijuana Advance Directives: No Advance Directives Information Provided: Yes service: No Sexual orientation: Straight/Heterosexual Meds Allergies Allergy/AdvReac Type Severity Reaction Status Date / Time carbamazepine [From TEGRETOL] AdvReac Unknown NAUSEA & Verified 09/23/22 03:55 VOMITING Fish Containing Products AdvReac Stomach Verified 09/23/22 03:55 Upset Home Medications Medication Instructions Recorded Confirmed Last Taken Type acetaminophen 500 mg tablet 1 tab PO Q6H PRN pain 08/14/22 10/27/22 Unknown History albuterol sulfate 90 mcg/actuation 2 puff inhalation BID PRN Wheezing 08/14/22 10/27/22 Unknown History aerosol inhaler (ProAir HFA) diphenhydramine HCl 50 mg capsule 2 cap PO BEDTIME 08/14/22 10/27/22 Unknown History (Banophen) haloperidol 5 mg tablet 1 tab PO TID PRN Agitation 08/14/22 10/27/22 Unknown History hydroxyzine pamoate 50 mg capsule 1 cap PO BID PRN Anxiety 08/14/22 10/27/22 Unknown History nicotine (polacrilex) 2 mg gum 2 mg buccal Q2H PRN Smoking 08/14/22 10/27/22 Unknown History Cessation omeprazole 20 mg tablet,delayed 20 mg PO DAILY 08/14/22 10/27/22 Unknown History release zolpidem 10 mg tablet 1 tab PO BEDTIME 08/14/22 10/27/22 Unknown History cetirizine 10 mg tablet 1 tab PO DAILY 10/07/22 10/27/22 Unknown History fluticasone propionate 230 2 puff inhalation BID 10/07/22 10/27/22 Unknown History mcg-salmeterol 21 mcg/actuation HFA inhaler (Advair HFA) benztropine 0.5 mg tablet 1 tab PO BID 10/26/22 10/26/22 Unknown History clonidine HCl 0.1 mg tablet 1 tab PO TID 10/26/22 10/26/22 Unknown History duloxetine 60 mg capsule,delayed 1 cap PO DAILY 10/26/22 10/26/22 Unknown History release ferrous sulfate 325 mg (65 mg 1 tab PO DAILY 10/26/22 10/26/22 Unknown History iron) tablet,delayed release haloperidol decanoate 100 mg/mL 100 mg IM Q4W 10/26/22 10/26/22 10/21/22 History intramuscular solution lithium carbonate 300 mg tablet 300 mg PO DAILY@1700 10/26/22 10/26/22 Unknown History prazosin 5 mg capsule 5 mg PO BEDTIME 10/26/22 10/26/22 Unknown History Exam Exam Date and Time: November 04, 2022 0655 Height,Weight and Vital Signs: Height 4 ft 11 in Weight 90.718 kg Last Vital Signs Temp 98 F 11/04/22 06:53 Pulse 117 H 11/04/22 06:53 Resp 22 H 11/04/22 06:53 BP 135/82 11/04/22 06:53 Pulse Ox 98 11/04/22 06:53 O2 Del Method 11/04/22 06:53 Pertinent Lab Results Pertinent Lab Results: Laboratory Tests 11/04/22 06:34 COVID-19 ([facility]) Negative COVID-19 Clin Com See Note Airway Mallampati Class: II (Missing coupke, denies anything loose) TM Dist: >3cm Neck ROM: Full Heart: rrr Lungs: cta Assessment and Plan Assessment Anesthesia Assessment: Anesthesia Plan Discussed and Chart Reviewed Final Anesthetic Review Family History of Problems with Anesthesia: No History of Problems with Anesthesia: No NPO: Yes ASA Class: III Final Preanesthetic Review: No Changes in Pt Med Stat, Meds/Allgs Chart Reviewed and Consent Obtained/Reviewed Patient Risk: Intermediate Procedure Risk: Intermediate Anesthetic Plan Anesthetic Plan: GA Disposition: Standard PACU
--- NOTE | 2022-11-04 07:05 | MHC.SHP ---
Pre-Procedural Eval Section A Date of Service: 11/04/22 The patient is an INPATIENT: No Changes since office visit: Yes Cold of Flu in the past 2 weeks, Yes New Medical Problems, Yes Changes in Medication and Yes Patient answered all questions The History & Physical has been completed within 30 days and I have reviewed it.: Yes Section B Chief Complaint: Major depressive disorder, recurrent, severe with Allergies: Allergies Allergy/AdvReac Type Severity Reaction Status Date / Time carbamazepine [From TEGRETOL] AdvReac Unknown NAUSEA & Verified 09/23/22 03:55 VOMITING Fish Containing Products AdvReac Stomach Verified 09/23/22 03:55 Upset Plan I have reviewed the history and physical and performed a pertinent physical examination on my patient. No changes have occurred unless specified. Time Spent With Patient Time: Total time managing care of this patient today ____ minutes.
--- NOTE | 2022-11-04 07:28 | HO.ECTPROC ---
ECT Procedure Note Diagnosis/Treatment Date of Service: 11/04/22 Diagnosis: Schizoaffective Disorder Previous ECT Date: 11/04/22 Treatment: Maintenance Interval Clinical Notes: The patient reported improvment of her mood, still dysphoric but no active suicidal thoughts. Time: Total time managing care of this patient today _30___ minutes. ECT Settings Device: THYMATRON DGx Electrode Placement: Bitemporal Program/Pulse Width: 0.50 Energy Percent: 100 Seizure Duration By EEG (in seconds): 0 (ECT machine not recording) By Motor Observation (in seconds): 17 Medications Administration General Anesthetic: Etomidate (14) Muscle Relaxant: Succinylcholine (100) Ancillary Medications Analgesics: Torodol - Pre ECT Anti-emetics: Zofran - Pre ECT Airway Management Airway Management: Bag Mask Ventilation Treatment Recommendations No Changes Recommended: No change Pt Tolerated Procedure w/o Issue: Yes
== END 2022-11-04 08:56 | disposition home or self-care (01) ==
PROVIDERS: PCP Pediatrics; Visit Provider Psychiatry & Neurology Psychiatry
PROC: (CPT 90870; principal; 2022-11-04 08:00)
DX: F25.9 Schizoaffective disorder, unspecified (principal); F60.3 Borderline personality disorder; F43.12 Post-traumatic stress disorder, chronic; G47.34 Idiopathic sleep related nonobstructive alveolar hypoventilation; J44.9 Chronic obstructive pulmonary disease, unspecified; Z72.89 Other problems related to lifestyle; Z91.52 Personal history of nonsuicidal self-harm; Z79.51 Long term (current) use of inhaled steroids; Z79.899 Other long term (current) drug therapy; Z88.8 Allergy status to other drugs, medicaments and biological substances; Z20.822 Contact with and (suspected) exposure to COVID-19; F17.210 Nicotine dependence, cigarettes, uncomplicated
CPT/HCPCS: 87635; 90870; J0330; J1642; J1885; J2405

== ENCOUNTER 2022-11-11 12:47 | Day surgery (SDC) | payer OTHER, SELFPAY ==
[2022-11-11] VITALS (7 sets, daily range): BP systolic 111–158; BP diastolic 74–95; PULSE 86–105; RESP 16–22; TEMP 36.1–36.6; O2SAT 94–97; BMI 41.3
--- NOTE | 2022-11-11 13:21 | MHC.SHP ---
Pre-Procedural Eval Section A Date of Service: 11/11/22 The History & Physical has been completed within 30 days and I have reviewed it.: No Section B Chief Complaint: Major depressive disorder, recurrent, severe with Details of Present Illness: recurrent depression SIB Present Medications: see Short Stay Collaborative assessment Allergies: Allergies Allergy/AdvReac Type Severity Reaction Status Date / Time carbamazepine [From TEGRETOL] AdvReac Unknown NAUSEA & Verified 09/23/22 03:55 VOMITING Fish Containing Products AdvReac Stomach Verified 09/23/22 03:55 Upset Review of Systems Sugical H&P ROS: Negative: Cardiovascular and Yes, Specify: Psychiatric (depression SIB) and Integumentary (laceration) Exam Surgical H&P Exam: Normal: Heart and Normal: Lungs Plan Diagnosis/Plan: Unchanged I have reviewed the history and physical and performed a pertinent physical examination on my patient. No changes have occurred unless specified. Time Spent With Patient Time: Total time managing care of this patient today ____ minutes.
--- NOTE | 2022-11-11 13:23 | HO.ANESPROP2 ---
HPI - Anesthesia Eval Consult details Narrative: Schizoaffective disorder, depressive type, PTSD [facility] Active Problems Active Problems: All Active Problems (Updated 10/28/22 @ 00:00 by Adiel Sevilla) Injury of ligament of right knee (Acute) Sprain of anterior cruciate ligament of right knee (Acute) Hernia (Chronic) Schizoaffective disorder, depressive type (Chronic) Sprain of left foot (Acute) COVID-19 (Acute) COVID-19 (Acute) Chronic post-traumatic stress disorder (PTSD) (Chronic) Increased BMI (Acute) GERD (gastroesophageal reflux disease) (Acute) Borderline personality disorder (Chronic) Past Medical History Medical History Acute post-traumatic stress disorder Adjustment disorder Anxiety Asthma Borderline personality disorder Chronic post-traumatic stress disorder (PTSD) COPD (chronic obstructive pulmonary disease) Depression GERD (gastroesophageal reflux disease) History of electroconvulsive therapy Increased BMI Injury, self-inflicted Intentional self-harm PTSD (post-traumatic stress disorder) Recurrent major depression-severe Schizoaffective disorder Self-harming behavior Suicidal ideation Suicidal ideation Family History Family History Mother Brain cancer Other No family history of cardiac disease Family history of problems with anesthesia: No Surgical History History of Problems with Anesthesia: No Social History Social History Household Members: Other Household Members Other:: [facility] Housing: [facility] Housing Other:: [facility] Do you presently have visiting nurse or other home services: No Alcohol intake: never Patient Tobacco Use Status: Current everyday Tobacco user Tobacco use type: Cigarette Cigarette Packs Per Day: 0.5 Cigarettes Per Day: 6 Years Smoked: 15 Smoked in Last 30 Days: Yes e-Cigarette/Vaping Use: Never Used Patient Interested in Nicotine Replacement: No Second Hand Smoke Exposure: Yes Use of substances other than those prescribed or required for medical reasons: No Substance Use Type: Marijuana Have you been hit, kicked, punched, or otherwise hurt by someone within the past year? If so, by whom?: No Are you DNR?: No Advance Directives: No Advance Directives Information Provided: Yes Recently lost weight without trying: Yes How much weight loss: 2-13 pounds Eating poorly because of decreased appetite: Yes Nutrition screen score: 4 service: No Sexual orientation: Straight/Heterosexual Meds Allergies Allergy/AdvReac Type Severity Reaction Status Date / Time carbamazepine [From TEGRETOL] AdvReac Unknown NAUSEA & Verified 09/23/22 03:55 VOMITING Fish Containing Products AdvReac Stomach Verified 09/23/22 03:55 Upset Home Medications Medication Instructions Recorded Confirmed Last Taken Type acetaminophen 500 mg tablet 1 tab PO Q6H PRN pain 08/14/22 10/27/22 Unknown History albuterol sulfate 90 mcg/actuation 2 puff inhalation BID PRN Wheezing 08/14/22 10/27/22 Unknown History aerosol inhaler (ProAir HFA) diphenhydramine HCl 50 mg capsule 2 cap PO BEDTIME 08/14/22 10/27/22 Unknown History (Banophen) haloperidol 5 mg tablet 1 tab PO TID PRN Agitation 08/14/22 10/27/22 Unknown History hydroxyzine pamoate 50 mg capsule 1 cap PO BID PRN Anxiety 08/14/22 10/27/22 Unknown History nicotine (polacrilex) 2 mg gum 2 mg buccal Q2H PRN Smoking 08/14/22 10/27/22 Unknown History Cessation omeprazole 20 mg tablet,delayed 20 mg PO DAILY 08/14/22 10/27/22 Unknown History release zolpidem 10 mg tablet 1 tab PO BEDTIME 08/14/22 10/27/22 Unknown History cetirizine 10 mg tablet 1 tab PO DAILY 10/07/22 10/27/22 Unknown History fluticasone propionate 230 2 puff inhalation BID 10/07/22 10/27/22 Unknown History mcg-salmeterol 21 mcg/actuation HFA inhaler (Advair HFA) benztropine 0.5 mg tablet 1 tab PO BID 10/26/22 10/26/22 Unknown History clonidine HCl 0.1 mg tablet 1 tab PO TID 10/26/22 10/26/22 Unknown History duloxetine 60 mg capsule,delayed 1 cap PO DAILY 10/26/22 10/26/22 Unknown History release ferrous sulfate 325 mg (65 mg 1 tab PO DAILY 10/26/22 10/26/22 Unknown History iron) tablet,delayed release haloperidol decanoate 100 mg/mL 100 mg IM Q4W 10/26/22 10/26/2223 History intramuscular solution lithium carbonate 300 mg tablet 300 mg PO DAILY@1700 10/26/22 10/26/22 Unknown History prazosin 5 mg capsule 5 mg PO BEDTIME 10/26/22 10/26/22 Unknown History Exam Exam Date and Time: November 11, 2022 1323 Height,Weight and Vital Signs: Height 4 ft 11 in Weight 92.986 kg Last Vital Signs Temp 97.8 F 11/11/22 13:02 Pulse 105 H 11/11/22 13:02 Resp 22 H 11/11/22 13:02 BP 150/95 H 11/11/22 13:02 Pulse Ox 97 11/11/22 13:02 O2 Del Method Room Air 11/11/22 13:02 Airway Mallampati Class: III TM Dist: >3cm Neck ROM: Full Loose/Missing/Broken Teeth: Yes (Missing couple globally, denies anything loose) Heart: [id number] Lungs: cta b/l Assessment and Plan Assessment Anesthesia Assessment: Anesthesia Plan Discussed and Chart Reviewed Final Anesthetic Review Family History of Problems with Anesthesia: No History of Problems with Anesthesia: No NPO: Yes ASA Class: III Final Preanesthetic Review: No Changes in Pt Med Stat, Meds/Allgs Chart Reviewed, Consent Obtained/Reviewed and Anes Risks/Benef Reviewed Patient Risk: Intermediate Procedure Risk: Intermediate Assessment/Block/Sedation in SS: Assess/Block/Sedation-SS Anesthetic Plan Anesthetic Plan: GA and Agree w/ Assess. and Plan Disposition: Standard PACU
[2022-11-11 13:28] LABS: COVID-19 Test Negative (Negative); IDNOW Serial# BCCEAD1C
--- NOTE | 2022-11-11 13:54 | P.PCN_ITS ---
ECT Procedure Note Diagnosis/Treatment Date of Service: 11/11/22 Diagnosis: Major Depressive Disorder and Other (ptsd) Previous ECT Date: 11/04/22 Treatment: Maintenance Interval Clinical Notes: The patient reported improvment of her mood, still dysphoric intermittent self- harming thoughts has been feeling more unstable Time: Total time managing care of this patient today ____ minutes. ECT Settings Device: THYMATRON DGx Electrode Placement: Bitemporal Program/Pulse Width: 0.50 Energy Percent: 100 Seizure Duration By EEG (in seconds): 0 (ECT machine not recording) Medications Administration General Anesthetic: Etomidate (14) Muscle Relaxant: Succinylcholine (100) Ancillary Medications Analgesics: Torodol - Pre ECT Anti-emetics: Zofran - Pre ECT Airway Management Airway Management: Bag Mask Ventilation Treatment Recommendations Notes: Patient appears not to be having effective ECT treatments will need to review patient's medication that may be interfering lower etomidate Unclear if ECT is not effective or if has not been having effective seizures e Pt Tolerated Procedure w/o Issue: Yes
== END 2022-11-11 16:03 | disposition home or self-care (01) ==
PROVIDERS: PCP Psychiatry & Neurology Psychiatry; Visit Provider Psychiatry & Neurology Psychiatry
PROC: (CPT 90870; principal; 2022-11-11 14:00)
DX: F25.1 Schizoaffective disorder, depressive type (principal); F43.12 Post-traumatic stress disorder, chronic; F60.3 Borderline personality disorder; Z91.52 Personal history of nonsuicidal self-harm; G47.33 Obstructive sleep apnea (adult) (pediatric); Z79.51 Long term (current) use of inhaled steroids; Z79.899 Other long term (current) drug therapy; F17.210 Nicotine dependence, cigarettes, uncomplicated; F12.90 Cannabis use, unspecified, uncomplicated; Z20.822 Contact with and (suspected) exposure to COVID-19
CPT/HCPCS: 87635; 90870; J0330; J1642; J1885; J2405

== ENCOUNTER 2022-11-13 20:30 | Emergency (ER) | payer OTHER, SELFPAY ==
[2022-11-13 20:36] VITALS: BP 121/87; PULSE 117; RESP 17; TEMP 36.8; O2SAT 99; BMI 41.3
[2022-11-13 21:22] LABS: COVID-19 Test Negative (Negative); IDNOW Serial# 6674DD1D
[2022-11-13 21:30] VITALS: RESP 20
[2022-11-13] MEDS: Haloperidol Lactate 5 MG/ML VIAL IM (21:30)
[2022-11-13] MEDS: LORazepam 2 MG/ML VIAL IM (21:30)
[2022-11-13 21:45] VITALS: RESP 20
[2022-11-13 21:47] LABS: Basophils Percent Auto 0.3 % (0-2); Eosinophils Absolute Auto 0.1 X10*3/uL (0.0-0.4); Eosinophils Percent Auto 1.1 % (0-4); Hematocrit 36.8 % (37.0-47.0); Hemoglobin 12.1 g/dl (12.0-16.0); Imm Gran Abs Auto 0.03 X10*3/uL (0.00-0.03); Imm Gran Pct Auto 0.3 % (0.0-0.4); Lymphocytes Absolute Auto 2.8 X10*3/uL (1.2-4.9); Lymphocytes Percent Auto 31.3 % (20-40); MANUAL DIFF FLAG NO; Mean Corpuscular HGB Conc 32.9 g/dl (31.0-35.0); Mean Corpuscular Hemoglobin 28.9 pg (27.0-33.0); Mean Corpuscular Volume 87.8 fL (80.0-98.0); Mean Platelet Volume 10.6 fL (9.4-12.3); Monocytes Absolute Auto 0.5 X10*3/uL (0.1-1.2); Monocytes Percent Auto 5.6 % (2-11); Neutrophils Absolute Auto 5.5 x10*3/uL (2.0-8.3); Neutrophils Percent Auto 61.4 % (45-73); Platelet Count 211 X10*3/uL (160-400); Red Blood Count 4.19 X10*6/uL (4.20-5.50); Red Cell Distribution Width 13.7 % (11.0-16.0); White Blood Count 8.9 X10*3/uL (4.8-10.8)
[2022-11-13 21:57] LABS: Lithium 0.21 mmol/L (0.60-1.20)
[2022-11-13 22:00] VITALS: RESP 18
[2022-11-13 22:05] LABS: Alanine Aminotransferase 7 U/L (0-31); Alkaline Phosphatase 54 U/L (39-117); Anion Gap 12 (12-20); Aspartate Amino Transferase 11 U/L (5-31); Bilirubin Total 0.2 mg/dL (0.0-1.0); Blood Urea Nitrogen 10 mg/dL (9-16); Calcium 9.4 mg/dL (8.4-10.2); Carbon Dioxide 22 mmol/L (22-29); Chloride 107 mmol/L (96-108); Creatinine Clr Calc Pharmacy 96.8; Estimated Glomerular Filt Rate > 60; Glucose Random 111 mg/dL (60-115); Sodium 137 mmol/L (135-145); Total Protein 6.2 g/dL (6.5-8.0)
[2022-11-13 22:08] LABS: Ethanol < 10 mg/dL
[2022-11-13 22:15] VITALS: RESP 18
[2022-11-13 22:26] LABS: Appearance Urine Clear; Color Urine Yellow; Glucose Urine UA Negative (Negative); Leukocyte Esterase Urine Negative (Negative); Nitrite Urine Negative (Negative); PH 7.5 (5.0-9.0); Specific Gravity - Urine <= 1.005 (1.005-1.025); Urine Blood Negative (Negative); Urine Ketones Negative (Negative); Urine Protein Negative (Neg-Trace)
[2022-11-13 22:27] LABS: UPreg QC Valid YES; Urine Pregnancy NEGATIVE (NEGATIVE)
[2022-11-13 22:30] VITALS: RESP 16
[2022-11-13 22:35] LABS: Amphetamine Screen Urine Not Detected (Not Detect); Barbiturates, Urine Not Detected (Not Detect); Benzodiazepines Screen Urine Not Detected (Not Detect); Cannabinoid Screen Urine POSITIVE (Not Detect); Cocaine Screen Urine Not Detected (Not Detect); Fentanyl, urine POSITIVE (Not Detect); Opiate Screen Urine Not Detected (Not Detect); Phencyclidine Screen Urine Not Detected (Not Detect)
--- NOTE | 2022-11-13 23:14 | ED_ITS ---
HPI - General Adult General Chief complaint: Psychiatric Symptoms Stated complaint: crisis s1 Time Seen by Provider: 11/13/22 20:49 Source: patient, EMS and RN notes reviewed Mode of arrival: EMS Limitations: no limitations History of Present Illness HPI narrative: A 37-year-old female with past medical history significant for borderline personality disorder, schizoaffective disorder presents for evaluation of self- harm ideation. Patient has frequent ED visits for mental health complaints including Jr, borderline personality disorder, schizoaffective disorder, cutting Patient apparently became agitated after custodial and threatened to hurt herself And arrival to the ED she is attempting to strike her head against the wall repeatedly Related Data Home Medications Medication Instructions Recorded Confirmed acetaminophen 500 mg tablet 1 tab PO Q6H PRN pain 08/14/22 11/13/22 albuterol sulfate 90 mcg/actuation 2 puff inhalation BID PRN Wheezing 08/14/22 11/13/22 aerosol inhaler (ProAir HFA) diphenhydramine HCl 50 mg capsule 2 cap PO BEDTIME 08/14/22 11/13/22 (Banophen) haloperidol 5 mg tablet 1 tab PO TID PRN Agitation 08/14/22 11/13/22 hydroxyzine pamoate 50 mg capsule 1 cap PO BID PRN Anxiety 08/14/22 11/13/22 nicotine (polacrilex) 2 mg gum 2 mg buccal Q2H PRN Smoking 08/14/22 11/13/22 Cessation omeprazole 20 mg tablet,delayed 20 mg PO DAILY 08/14/22 11/13/22 release zolpidem 10 mg tablet 1 tab PO BEDTIME 08/14/22 11/13/22 cetirizine 10 mg tablet 1 tab PO DAILY 10/07/22 11/13/22 fluticasone propionate 230 2 puff inhalation BID 10/07/22 11/13/22 mcg-salmeterol 21 mcg/actuation HFA inhaler (Advair HFA) benztropine 0.5 mg tablet 1 tab PO BID 10/26/22 11/13/22 clonidine HCl 0.1 mg tablet 1 tab PO TID 10/26/22 11/13/22 duloxetine 60 mg capsule,delayed 1 cap PO DAILY 10/26/22 11/13/22 release ferrous sulfate 325 mg (65 mg 1 tab PO DAILY 10/26/22 11/13/22 iron) tablet,delayed release haloperidol decanoate 100 mg/mL 100 mg IM Q4W 10/26/22 11/13/22 intramuscular solution lithium carbonate 300 mg tablet 300 mg PO DAILY@1700 10/26/22 11/13/22 prazosin 5 mg capsule 5 mg PO BEDTIME 10/26/22 11/13/22 Previous Rx's Medication Instructions Recorded docusate sodium 100 mg capsule 100 mg PO BID 30 days #60 caps 09/01/22 trazodone 50 mg tablet 150 mg PO BEDTIME 30 days #90 tabs 09/01/22 Allergies Allergy/AdvReac Type Severity Reaction Status Date / Time carbamazepine [From TEGRETOL] AdvReac Unknown NAUSEA & Verified 09/23/22 03:55 VOMITING Fish Containing Products AdvReac Stomach Verified 09/23/22 03:55 Upset Review of Systems Psychiatric: Psychiatric: Reports suicidal ideation [facility] Past Medical History Medical History Acute post-traumatic stress disorder Adjustment disorder Anxiety Asthma Borderline personality disorder Chronic post-traumatic stress disorder (PTSD) COPD (chronic obstructive pulmonary disease) Depression GERD (gastroesophageal reflux disease) History of electroconvulsive therapy Increased BMI Injury, self-inflicted Intentional self-harm PTSD (post-traumatic stress disorder) Recurrent major depression-severe Schizoaffective disorder Self-harming behavior Suicidal ideation Suicidal ideation Family History Family History Mother Brain cancer Other No family history of cardiac disease Social History Social History Household Members: Other Household Members Other:: custodial Housing: Assisted Living Facility Housing Other:: custodial Do you presently have visiting nurse or other home services: No Alcohol intake: never Patient Tobacco Use Status: Current everyday Tobacco user Tobacco use type: Cigarette Cigarette Packs Per Day: 0.5 Cigarettes Per Day: 6 Years Smoked: 15 e-Cigarette/Vaping Use: Never Used Second Hand Smoke Exposure: Yes Substance Use Type: Marijuana Advance Directives: No Advance Directives Information Provided: Yes service: No Sexual orientation: Straight/Heterosexual Physical Exam ED Vital Signs: Vital Signs - 24 hr 11/13/22 20:36 11/13/22 21:30 11/13/22 21:45 Temperature 98.3 F Pulse Rate 117 H Respiratory Rate 17 20 20 Blood Pressure 121/87 Pulse Oximetry 99 Oxygen Delivery Method Room Air 11/13/22 22:00 11/13/22 22:15 11/13/22 22:30 Temperature Pulse Rate Respiratory Rate 18 18 16 Blood Pressure Pulse Oximetry Oxygen Delivery Method BMI result Body Mass Index 41.3 Const General: healthy appearing, comfortable, no acute distress, alert and awake Nutritional Appearance: well nourished Eyes Eyelids: Yes eyelids normal Conjunctivae: conjunctivae normal Sclerae: sclerae normal Corneas: corneas normal EOM: EOMs intact bilaterally Resp Effort & Inspection: normal respiratory effort, able to speak in complete sentences, no audible wheezes and not labored Skin General skin exam: no rashes or lesions noted and elasticity normal Lesions: no lesions Rashes: no rashes Extrem General: Yes full ROM Psych Appearance: grossly normal Speech and movement: Normal speech and movement present Attitude: Belligerent attititude/behavior present Medications Administered Discontinued Medications Generic Name Dose Route Start Last Admin Trade Name Griffinq PRN Reason Stop Dose Admin Haloperidol Lactate 5 mg 11/13/22 21:24 11/13/22 21:30 Haloperidol Lactate 5 Mg/Ml Vial IM 11/13/22 21:25 5 mg STAT STA Administration Lorazepam 2 mg 11/13/22 21:24 11/13/22 21:30 Lorazepam 2 Mg/Ml Vial IM 11/13/22 21:25 2 mg STAT STA Administration Medical Decision Making Medical Decision Making [facility] Narrative: 37-year-old female who is well known cyst emergency department for similar complaints presents for evaluation of self-harm ideology. Patient was medicated with Ativan and Haldol for her safety. She is currently resting comfortably. Patient re-evaluated by the care team to determine final disposition. Patient is currently medically cleared Differential Diagnosis Self-harm ideation Bipolar disorder Schizoaffective disorder Anxiety Suicidal ideation Lab Data 11/13/22 21:41 11/13/22 21:41 Labs: Lab Results 11/13/22 11/13/22 11/13/22 Range/Units 20:54 21:41 21:41 WBC 8.9 (4.8-10.8) X10*3/uL RBC 4.19 L (4.20-5.50) X10*6/uL Hgb 12.1 (12.0-16.0) g/dl Hct 36.8 L (37.0-47.0) % MCV 87.8 (80.0-98.0) fL MCH 28.9 (27.0-33.0) pg MCHC 32.9 (31.0-35.0) g/dl RDW 13.7 (11.0-16.0) % Plt Count 211 (160-400) X10*3/uL MPV 10.6 (9.4-12.3) fL Immature Gran % (Auto) 0.3 (0.0-0.4) % Neut % (Auto) 61.4 (45-73) % Lymph % (Auto) 31.3 (20-40) % [place] % (Auto) 5.6 (2-11) % Eos % (Auto) 1.1 (0-4) % Baso % (Auto) 0.3 (0-2) % Lymph # (Auto) 2.8 (1.2-4.9) X10*3/uL [place] # (Auto) 0.5 (0.1-1.2) X10*3/uL Eos # (Auto) 0.1 (0.0-0.4) X10*3/uL Baso # (Auto) 0.0 (0.0-0.2) X10*3/uL Abs Immat Gran (auto) 0.03 (0.00-0.03) X10*3/uL Absolute Neuts (auto) 5.5 (2.0-8.3) x10*3/uL Absolute Nucleated RBC 0.000 (0.0-0.012) X10*3/uL Nucleated RBC % (auto) 0.0 (0.0-0.2) /100WBC Sodium 137 (135-145) mmol/L Potassium 4.0 (3.3-5.1) mmol/L Chloride 107 (96-108) mmol/L Carbon Dioxide 22 (22-29) mmol/L Anion Gap 12 (12-20) BUN 10 (9-16) mg/dL Creatinine 0.80 (0.5-1.4) mg/dL Estim Creat Clear Calc 96.8 Estimated GFR > 60 Random Glucose 111 (60-115) mg/dL Calcium 9.4 (8.4-10.2) mg/dL Total Bilirubin 0.2 (0.0-1.0) mg/dL AST 11 (5-31) U/L ALT 7 (0-31) U/L Alkaline Phosphatase 54 (39-117) U/L Total Protein 6.2 L (6.5-8.0) g/dL Albumin 4.0 (3.5-5.0) g/dL Urine Color Urine Appearance Urine pH (5.0-9.0) Ur Specific [place] (1.005-1.025) Urine Protein (Neg-Trace) mg/dL Urine Glucose (UA) (Negative) mg/dL Urine Ketones (Negative) mg/dL Urine Blood (Negative) Urine Nitrite (Negative) Ur Leukocyte Esterase (Negative) Urine Test (NEGATIVE) Urine Opiates Screen (Not Detect) Urine Fentanyl Screen (Not Detect) Ur Barbiturates Screen (Not Detect) Ur Phencyclidine Scrn (Not Detect) Ur Amphetamines Screen (Not Detect) U Benzodiazepines Scrn (Not Detect) [place] (0.60-1.20) mmol/L Urine Cocaine Screen (Not Detect) U Marijuana (THC) Screen (Not Detect) Ethyl Alcohol mg/dL COVID-19 (RAFAL) Negative (Negative) COVID-19 Clin Com See Note 11/13/22 11/13/22 11/13/22 Range/Units 21:41 21:41 22:17 WBC (4.8-10.8) X10*3/uL RBC (4.20-5.50) X10*6/uL Hgb (12.0-16.0) g/dl Hct (37.0-47.0) % MCV (80.0-98.0) fL MCH (27.0-33.0) pg MCHC (31.0-35.0) g/dl RDW (11.0-16.0) % Plt Count (160-400) X10*3/uL MPV (9.4-12.3) fL Immature Gran % (Auto) (0.0-0.4) % Neut % (Auto) (45-73) % Lymph % (Auto) (20-40) % [place] % (Auto) (2-11) % Eos % (Auto) (0-4) % Baso % (Auto) (0-2) % Lymph # (Auto) (1.2-4.9) X10*3/uL [place] # (Auto) (0.1-1.2) X10*3/uL Eos # (Auto) (0.0-0.4) X10*3/uL Baso # (Auto) (0.0-0.2) X10*3/uL Abs Immat Gran (auto) (0.00-0.03) X10*3/uL Absolute Neuts (auto) (2.0-8.3) x10*3/uL Absolute Nucleated RBC (0.0-0.012) X10*3/uL Nucleated RBC % (auto) (0.0-0.2) /100WBC Sodium (135-145) mmol/L Potassium (3.3-5.1) mmol/L Chloride (96-108) mmol/L Carbon Dioxide (22-29) mmol/L Anion Gap (12-20) BUN (9-16) mg/dL Creatinine (0.5-1.4) mg/dL Estim Creat Clear Calc Estimated GFR Random Glucose (60-115) mg/dL Calcium (8.4-10.2) mg/dL Total Bilirubin (0.0-1.0) mg/dL AST (5-31) U/L ALT (0-31) U/L Alkaline Phosphatase (39-117) U/L Total Protein (6.5-8.0) g/dL Albumin (3.5-5.0) g/dL Urine Color Yellow Urine Appearance Clear Urine pH 7.5 (5.0-9.0) Ur Specific [place] <= 1.005 (1.005-1.025) Urine Protein Negative (Neg-Trace) mg/dL Urine Glucose (UA) Negative (Negative) mg/dL Urine Ketones Negative (Negative) mg/dL Urine Blood Negative (Negative) Urine Nitrite Negative (Negative) Ur Leukocyte Esterase Negative (Negative) Urine Test (NEGATIVE) Urine Opiates Screen (Not Detect) Urine Fentanyl Screen (Not Detect) Ur Barbiturates Screen (Not Detect) Ur Phencyclidine Scrn (Not Detect) Ur Amphetamines Screen (Not Detect) U Benzodiazepines Scrn (Not Detect) [place] 0.21 L (0.60-1.20) mmol/L Urine Cocaine Screen (Not Detect) U Marijuana (THC) Screen (Not Detect) Ethyl Alcohol < 10 mg/dL COVID-19 (RAFAL) (Negative) COVID-19 Clin Com 11/13/22 11/13/22 Range/Units 22:17 22:17 WBC (4.8-10.8) X10*3/uL RBC (4.20-5.50) X10*6/uL Hgb (12.0-16.0) g/dl Hct (37.0-47.0) % MCV (80.0-98.0) fL MCH (27.0-33.0) pg MCHC (31.0-35.0) g/dl RDW (11.0-16.0) % Plt Count (160-400) X10*3/uL MPV (9.4-12.3) fL Immature Gran % (Auto) (0.0-0.4) % Neut % (Auto) (45-73) % Lymph % (Auto) (20-40) % [place] % (Auto) (2-11) % Eos % (Auto) (0-4) % Baso % (Auto) (0-2) % Lymph # (Auto) (1.2-4.9) X10*3/uL [place] # (Auto) (0.1-1.2) X10*3/uL Eos # (Auto) (0.0-0.4) X10*3/uL Baso # (Auto) (0.0-0.2) X10*3/uL Abs Immat Gran (auto) (0.00-0.03) X10*3/uL Absolute Neuts (auto) (2.0-8.3) x10*3/uL Absolute Nucleated RBC (0.0-0.012) X10*3/uL Nucleated RBC % (auto) (0.0-0.2) /100WBC Sodium (135-145) mmol/L Potassium (3.3-5.1) mmol/L Chloride (96-108) mmol/L Carbon Dioxide (22-29) mmol/L Anion Gap (12-20) BUN (9-16) mg/dL Creatinine (0.5-1.4) mg/dL Estim Creat Clear Calc Estimated GFR Random Glucose (60-115) mg/dL Calcium (8.4-10.2) mg/dL Total Bilirubin (0.0-1.0) mg/dL AST (5-31) U/L ALT (0-31) U/L Alkaline Phosphatase (39-117) U/L Total Protein (6.5-8.0) g/dL Albumin (3.5-5.0) g/dL Urine Color Urine Appearance Urine pH (5.0-9.0) Ur Specific [place] (1.005-1.025) Urine Protein (Neg-Trace) mg/dL Urine Glucose (UA) (Negative) mg/dL Urine Ketones (Negative) mg/dL Urine Blood (Negative) Urine Nitrite (Negative) Ur Leukocyte Esterase (Negative) Urine Test NEGATIVE (NEGATIVE) Urine Opiates Screen Not Detected (Not Detect) Urine Fentanyl Screen POSITIVE H (Not Detect) Ur Barbiturates Screen Not Detected (Not Detect) Ur Phencyclidine Scrn Not Detected (Not Detect) Ur Amphetamines Screen Not Detected (Not Detect) U Benzodiazepines Scrn Not Detected (Not Detect) [place] (0.60-1.20) mmol/L Urine Cocaine Screen Not Detected (Not Detect) U Marijuana (THC) Screen POSITIVE H (Not Detect) Ethyl Alcohol mg/dL COVID-19 (RAFAL) (Negative) COVID-19 Clin Com Discharge Plan Discharge Clinical Impression: Borderline personality disorder Patient Disposition: Still a Patient Prescriptions: No Action haloperidol 5 mg tablet 1 tab PO TID PRN (Reason: Agitation) diphenhydramine HCl [Banophen] 50 mg capsule 2 cap PO BEDTIME hydroxyzine pamoate 50 mg capsule 1 cap PO BID PRN (Reason: Anxiety) zolpidem 10 mg tablet 1 tab PO BEDTIME acetaminophen 500 mg tablet 1 tab PO Q6H PRN (Reason: pain) albuterol sulfate [ProAir HFA] 90 mcg/actuation HFA aerosol inhaler 2 puff inhalation BID PRN (Reason: Wheezing) nicotine (polacrilex) 2 mg Gum 2 mg BUCCAL Q2H PRN (Reason: Smoking Cessation) omeprazole 20 mg Tablet,Delayed Release (Dr/Ec) 20 mg PO DAILY lithium carbonate 300 mg tablet 300 mg PO DAILY@1700 clonidine HCl 0.1 mg tablet 1 tab PO TID benztropine 0.5 mg tablet 1 tab PO BID haloperidol decanoate 100 mg/mL solution 100 mg IM Q4W prazosin 5 mg capsule 5 mg PO BEDTIME ferrous sulfate 325 mg (65 mg iron) tablet,delayed release (DR/EC) 1 tab PO DAILY duloxetine 60 mg capsule,delayed release(DR/EC) 1 cap PO DAILY trazodone 50 mg Tablet 150 mg PO BEDTIME 30 Days Qty: 90 0RF docusate sodium 100 mg Capsule 100 mg PO BID 30 Days Qty: 60 0RF Rx Instructions: HOLD FOR LOOSE STOOL cetirizine 10 mg tablet 1 tab PO DAILY Advair HFA 230-21 mcg/actuation HFA aerosol inhaler 2 puff INHALATION BID Interventions: [place]-Suicide Risk Severity Scale Last Done: 11/13/22 22:20
[2022-11-14 06:16] VITALS: RESP 16
--- NOTE | 2022-11-14 06:26 | PC.NURSE ---
Patient at the time of arrival exhibited self abusive behavior by hitting her head against the wall and self punching, provider notified/ordered Ativan 2 mg Im and Haldol 5 mg IM/administered at 2130 with + effect, patient is on 1:1 for safety protocol, care consult ordered/pending evaluation, med rec completed/approved by the provider/CAIT active, behavior non concerning at this time, will continue to monitor.
[2022-11-14] MEDS: hydrOXYzine HCL 50 MG TABLET PO (06:41)
[2022-11-14] MEDS: HaloperidoL 5 MG TABLET PO (06:41)
--- NOTE | 2022-11-14 12:15 | MHC.CARE ---
Patient evaluated by the CARE Team, she does not require an inpatient psychiatric admission at this time. Plan is to coordinate discharge with [facility]. Written assessment to follow. Provider updated
== END 2022-11-14 13:09 | disposition home or self-care (01) ==
PROVIDERS: Emergency Provider Emergency Medicine
DX: F60.3 Borderline personality disorder (principal); R45.851 Suicidal ideations; Z20.822 Contact with and (suspected) exposure to COVID-19; F25.1 Schizoaffective disorder, depressive type; F43.12 Post-traumatic stress disorder, chronic; F17.210 Nicotine dependence, cigarettes, uncomplicated; F12.90 Cannabis use, unspecified, uncomplicated; Z91.52 Personal history of nonsuicidal self-harm; Z79.899 Other long term (current) drug therapy
CPT/HCPCS: 36415; 80053; 80178; 80307; 81003; 81025; 82077; 85025; 87635; 96372; 99284; 99285; J2060; S9485

== ENCOUNTER 2022-11-16 19:03 | Emergency (ER) | payer OTHER, SELFPAY ==
--- NOTE | 2022-11-16 19:09 | ED_ITS ---
HPI - Psych General Chief Complaint: Psychiatric Symptoms Stated Complaint: SI,SELF INF CUTS TO ARM PER EMS Time Seen by Provider: 11/16/22 19:09 Source: patient and EMS Mode of arrival: EMS Limitations: no limitations History of Present Illness HPI Narrative: 37-year-old female presents via EMS for self injuries behaviors and suicidal ideation. MD complaint: suicidal ideation, feels depressed and anxiety Onset (ago): year(s) Duration: constant History of same: Yes Relieving factors: none Context: significant life stressor Associated psychiatric symptoms: depression, suicidal ideation, racing thoughts and auditory hallucinations Associated symptoms: denies other symptoms Treatments prior to arrival: none If self harm: admits thoughts of self harm, has plan and self-inflicted trauma Related Data Home Medications Medication Instructions Recorded Confirmed acetaminophen 500 mg tablet 1 tab PO Q6H PRN pain 08/14/22 11/16/22 albuterol sulfate 90 mcg/actuation 2 puff inhalation BID PRN Wheezing 08/14/22 11/16/22 aerosol inhaler (ProAir HFA) diphenhydramine HCl 50 mg capsule 2 cap PO BEDTIME 08/14/22 11/16/22 (Banophen) haloperidol 5 mg tablet 1 tab PO TID PRN Agitation 08/14/22 11/16/22 hydroxyzine pamoate 50 mg capsule 1 cap PO BID PRN Anxiety 08/14/22 11/16/22 nicotine (polacrilex) 2 mg gum 2 mg buccal Q2H PRN Smoking 08/14/22 11/16/22 Cessation omeprazole 20 mg tablet,delayed 20 mg PO DAILY 08/14/22 11/16/22 release zolpidem 10 mg tablet 1 tab PO BEDTIME 08/14/22 11/16/22 cetirizine 10 mg tablet 1 tab PO DAILY 10/07/22 11/16/22 fluticasone propionate 230 2 puff inhalation BID 10/07/22 11/16/22 mcg-salmeterol 21 mcg/actuation HFA inhaler (Advair HFA) benztropine 0.5 mg tablet 1 tab PO BID 10/26/22 11/16/22 clonidine HCl 0.1 mg tablet 1 tab PO TID 10/26/22 11/16/22 duloxetine 60 mg capsule,delayed 1 cap PO DAILY 10/26/22 11/16/22 release ferrous sulfate 325 mg (65 mg 1 tab PO DAILY 10/26/22 11/16/22 iron) tablet,delayed release haloperidol decanoate 100 mg/mL 100 mg IM Q4W 10/26/22 11/16/22 intramuscular solution lithium carbonate 300 mg tablet 300 mg PO DAILY@1700 10/26/22 11/16/22 prazosin 5 mg capsule 5 mg PO BEDTIME 10/26/22 11/16/22 Previous Rx's Medication Instructions Recorded docusate sodium 100 mg capsule 100 mg PO BID 30 days #60 caps 09/01/22 trazodone 50 mg tablet 150 mg PO BEDTIME 30 days #90 tabs 09/01/22 Allergies Allergy/AdvReac Type Severity Reaction Status Date / Time carbamazepine [From TEGRETOL] AdvReac Unknown NAUSEA & Verified 09/23/22 03:55 VOMITING Fish Containing Products AdvReac Stomach Verified 09/23/22 03:55 Upset Review of Systems Review of Systems: Constitutional: No Fever, No Chills Cardiovascular: No Chest Pain, No SOB Respiratory: No Cough, No Sputum, No Dyspnea Gastrointestinal: No Nausea, No Vomiting, No Diarrhea Genitourinary: No Dysuria, No Urinary Frequency, No Hematuria Skin: Multiple wounds in various stages of healing to all extremities and abdomen, No Skin Lesions, No rash Neuro: No Weakness, No Numbness, No Paresthesias, No Dizziness, No Headache Psych: positive Anxiety, positive Depression, positive SI, positive auditory hallucinations Yes all other systems are reviewed and are negative PMFSH Past Medical History Attestation statement: The following information was validated with the patient. Source: old records reviewed Medical History Acute post-traumatic stress disorder Adjustment disorder Anxiety Asthma Borderline personality disorder Chronic post-traumatic stress disorder (PTSD) COPD (chronic obstructive pulmonary disease) Depression GERD (gastroesophageal reflux disease) History of electroconvulsive therapy Increased BMI Injury, self-inflicted Intentional self-harm PTSD (post-traumatic stress disorder) Recurrent major depression-severe Schizoaffective disorder Self-harming behavior Suicidal ideation Suicidal ideation Family History Family History Mother Brain cancer Other No family history of cardiac disease Social History Social History Household Members: Other Household Members Other:: prison Housing: Assisted Living Facility Housing Other:: prison Do you presently have visiting nurse or other home services: No Alcohol intake: never Patient Tobacco Use Status: Current everyday Tobacco user Tobacco use type: Cigarette Cigarette Packs Per Day: 0.5 Cigarettes Per Day: 6 Years Smoked: 15 Smoked in Last 30 Days: Yes e-Cigarette/Vaping Use: Never Used Second Hand Smoke Exposure: Yes Substance Use Type: Marijuana Advance Directives: No Advance Directives Information Provided: No service: No Sexual orientation: Straight/Heterosexual Physical Exam Vital Signs: Vital Signs: Last Vital Signs Temp 98.3 F 11/16/22 19:11 Pulse 87 11/16/22 19:11 Resp 16 11/16/22 20:30 BP 142/81 H 11/16/22 19:11 Pulse Ox 97 11/16/22 19:11 O2 Del Method Room Air 11/16/22 19:11 BMI result Body Mass Index 41.3 Appearance: Alert. Oriented X3. Moderate emotional distress. Eyes: Pupils equal, round and reactive to light. Neck: Normal inspection. Neck supple. CVS: Normal heart rate and rhythm. Pulses normal. Respiratory: No respiratory distress. Breath sounds normal. Abdomen: Soft and nontender. Skin: Multiple superficial self-inflicted wounds in various stages of healing. Extremities: No lower extremity edema. Gait well-balanced well coordinated. Neuro: No motor deficit. No sensory deficit. Cranial nerves 2-12 intact. Course Course Course Narrative: 37-year-old female presents via EMS for self-inflicted injuries behaviors, multiple superficial lacerations in various stages of healing to arms and abdomen. Patient also reports auditory hallucinations telling her to kill herself and jump in front of moving vehicles. Patient has a longstanding history of presentation to the emergency department for similar circumstances. Will order patient's appropriate labs per her care plan. 00:30 lithium level is low, she was given her evening dose of lithium at night. Also indicates hematuria most likely consistent with menstruation. Physician observation at this time. Crisis consult pending. Patient is medically cleared. Medications Administered Generic Name Dose Route Start Last Admin Trade Name Freq PRN Reason Stop Dose Admin Benztropine Mesylate 0.5 mg 11/16/22 21:45 11/16/22 22:12 Benztropine Mesylate 0.5 Mg Tablet PO 0.5 mg BID SULEIMAN Administration Clonidine HCl 0.1 mg 11/16/22 21:45 11/16/22 22:12 Clonidine Hcl 0.1 Mg Tablet PO 0.1 mg TID SULEIMAN Administration Protocol Diphenhydramine HCl 100 mg 11/16/22 21:45 11/16/22 22:12 Diphenhydramine Hcl 25 Mg Capsule PO 100 mg BEDTIME SULEIMAN Administration Docusate Sodium 100 mg 11/16/22 21:45 11/16/22 22:12 Docusate Sodium 100 Mg Capsule PO 100 mg BID SULEIMAN Administration [place] Carbonate 300 mg 11/16/22 21:45 11/16/22 22:12 [place] Carbonate 300 Mg Capsule PO 300 mg DAILY@1700 SULEIMAN Administration Prazosin HCl 5 mg 11/16/22 21:45 11/16/22 22:12 Prazosin Hcl 5 Mg Capsule PO 5 mg BEDTIME SULEIMAN Administration Protocol Trazodone HCl 150 mg 11/16/22 21:45 11/16/22 22:12 Trazodone Hcl 50 Mg Tablet PO 150 mg BEDTIME SULEIMAN Administration Zolpidem Tartrate 10 mg 11/16/22 21:45 11/16/22 22:12 Zolpidem Tartrate 5 Mg Tablet PO 10 mg BEDTIME SULEIMAN Administration Discontinued Medications Generic Name Dose Route Start Last Admin Trade Name Griffinq PRN Reason Stop Dose Admin Haloperidol Lactate 10 mg 11/16/22 19:21 11/16/22 19:30 Haloperidol Lactate 5 Mg/Ml Vial IM 11/16/22 19:22 10 mg STAT STA Administration Lorazepam 2 mg 11/16/22 19:21 11/16/22 19:30 Lorazepam 2 Mg/Ml Vial IM 11/16/22 19:22 2 mg STAT STA Administration Medical Decision Making Differential Diagnosis Differential Diagnoses: The differential diagnosis associated with the presentation includes Auditory hallucinations, depression, suicidal ideation Lab Data MDM Lab Attestation statement: I reviewed the patient's lab results. Labs: Lab Results 11/16/22 11/16/22 11/16/22 Range/Units 19:48 20:07 20:07 Urine Color Yellow Urine Appearance Clear Urine pH 5.5 (5.0-9.0) Ur Specific [place] 1.015 (1.005-1.025) Urine Protein Trace (Neg-Trace) mg/dL Urine Glucose (UA) Negative (Negative) mg/dL Urine Ketones Trace (Negative) mg/dL Urine Blood Moderate (2+) H (Negative) Urine Nitrite Negative (Negative) Ur Leukocyte Esterase Negative (Negative) Urine RBC 0-2 (0-2) /HPF Urine WBC 0-5 (0-5) /HPF Ur Squamous Epith Cells 6-10 (0-2) /HPF Urine Bacteria None Seen (None Seen) Hyaline Casts 0-2 (0-2) /LPF Urine Test NEGATIVE (NEGATIVE) Urine Opiates Screen (Not Detect) Urine Fentanyl Screen (Not Detect) Ur Barbiturates Screen (Not Detect) Ur Phencyclidine Scrn (Not Detect) Ur Amphetamines Screen (Not Detect) U Benzodiazepines Scrn (Not Detect) [place] (0.60-1.20) mmol/L Urine Cocaine Screen (Not Detect) U Marijuana (THC) Screen (Not Detect) Ethyl Alcohol mg/dL COVID-19 (RAFAL) Negative (Negative) COVID-19 eOriginal Com See Note 11/16/22 11/16/22 11/16/22 Range/Units 20:08 20:38 20:38 Urine Color Urine Appearance Urine pH (5.0-9.0) Ur Specific [place] (1.005-1.025) Urine Protein (Neg-Trace) mg/dL Urine Glucose (UA) (Negative) mg/dL Urine Ketones (Negative) mg/dL Urine Blood (Negative) Urine Nitrite (Negative) Ur Leukocyte Esterase (Negative) Urine RBC (0-2) /HPF Urine WBC (0-5) /HPF Ur Squamous Epith Cells (0-2) /HPF Urine Bacteria (None Seen) Hyaline Casts (0-2) /LPF Urine Test (NEGATIVE) Urine Opiates Screen Not Detected (Not Detect) Urine Fentanyl Screen POSITIVE H (Not Detect) Ur Barbiturates Screen Not Detected (Not Detect) Ur Phencyclidine Scrn Not Detected (Not Detect) Ur Amphetamines Screen Not Detected (Not Detect) U Benzodiazepines Scrn Not Detected (Not Detect) [place] 0.32 L (0.60-1.20) mmol/L Urine Cocaine Screen Not Detected (Not Detect) U Marijuana (THC) Screen POSITIVE H (Not Detect) Ethyl Alcohol < 10 mg/dL COVID-19 (RAFAL) (Negative) COVID-19 Clin Com External Record Review External record reviewed: Inpatient record, Outpatient record, Prior outpatient labs and Prior outpatient radiology Prescription Management I considered prescription management with: Other (Anxiolytics) Social Determinants Patient?s care significantly limited by Social Determinants of Health including: Other Social Determinant of Health Discharge Plan Discharge Clinical Impression: Suicidal ideation, Depression Patient Disposition: Still a Patient Prescriptions: No Action haloperidol 5 mg tablet 1 tab PO TID PRN (Reason: Agitation) diphenhydramine HCl [Banophen] 50 mg capsule 2 cap PO BEDTIME hydroxyzine pamoate 50 mg capsule 1 cap PO BID PRN (Reason: Anxiety) zolpidem 10 mg tablet 1 tab PO BEDTIME acetaminophen 500 mg tablet 1 tab PO Q6H PRN (Reason: pain) albuterol sulfate [ProAir HFA] 90 mcg/actuation HFA aerosol inhaler 2 puff inhalation BID PRN (Reason: Wheezing) nicotine (polacrilex) 2 mg Gum 2 mg BUCCAL Q2H PRN (Reason: Smoking Cessation) omeprazole 20 mg Tablet,Delayed Release (Dr/Ec) 20 mg PO DAILY lithium carbonate 300 mg tablet 300 mg PO DAILY@1700 clonidine HCl 0.1 mg tablet 1 tab PO TID benztropine 0.5 mg tablet 1 tab PO BID haloperidol decanoate 100 mg/mL solution 100 mg IM Q4W prazosin 5 mg capsule 5 mg PO BEDTIME ferrous sulfate 325 mg (65 mg iron) tablet,delayed release (DR/EC) 1 tab PO DAILY duloxetine 60 mg capsule,delayed release(DR/EC) 1 cap PO DAILY trazodone 50 mg Tablet 150 mg PO BEDTIME 30 Days Qty: 90 0RF docusate sodium 100 mg Capsule 100 mg PO BID 30 Days Qty: 60 0RF Rx Instructions: HOLD FOR LOOSE STOOL cetirizine 10 mg tablet 1 tab PO DAILY Advair HFA 230-21 mcg/actuation HFA aerosol inhaler 2 puff INHALATION BID Interventions: [place]-Suicide Risk Severity Scale Last Done: 11/16/22 20:48
[2022-11-16 19:11] VITALS: BP 142/81; PULSE 87; RESP 16; TEMP 36.8; O2SAT 97; BMI 41.3
[2022-11-16 19:30] VITALS: RESP 17
[2022-11-16] MEDS: LORazepam 2 MG/ML VIAL IM (19:30)
[2022-11-16] MEDS: Haloperidol Lactate 5 MG/ML VIAL 10 MG IM (19:30)
[2022-11-16 19:45] VITALS: RESP 16
[2022-11-16 20:00] VITALS: RESP 16
[2022-11-16 20:01] LABS: COVID-19 Test Negative (Negative); IDNOW Serial# 08D9AD1C
[2022-11-16 20:15] VITALS: RESP 16
[2022-11-16 20:19] LABS: Appearance Urine Clear; Color Urine Yellow; Glucose Urine UA Negative (Negative); Leukocyte Esterase Urine Negative (Negative); Nitrite Urine Negative (Negative); PH 5.5 (5.0-9.0); Specific Gravity - Urine 1.015 (1.005-1.025); UMIC TRIGGER UA YES; Urine Blood Moderate (2+) (Negative); Urine Ketones Trace mg/dL (Negative); Urine Protein Trace mg/dL (Neg-Trace)
[2022-11-16 20:21] LABS: UPreg QC Valid YES; Urine Pregnancy NEGATIVE (NEGATIVE)
[2022-11-16 20:29] LABS: Amphetamine Screen Urine Not Detected (Not Detect); Barbiturates, Urine Not Detected (Not Detect); Benzodiazepines Screen Urine Not Detected (Not Detect); Cannabinoid Screen Urine POSITIVE (Not Detect); Cocaine Screen Urine Not Detected (Not Detect); Fentanyl, urine POSITIVE (Not Detect); Opiate Screen Urine Not Detected (Not Detect); Phencyclidine Screen Urine Not Detected (Not Detect)
[2022-11-16 20:30] VITALS: RESP 16
[2022-11-16 20:33] LABS: Bacteria Urine None Seen (None Seen); Hyaline Casts Urine 0-2 /LPF (0-2); RBC Urine 0-2 /HPF (0-2); WBC Urine 0-5 /HPF (0-5)
[2022-11-16 20:59] LABS: Lithium 0.32 mmol/L (0.60-1.20)
[2022-11-16 21:13] LABS: Ethanol < 10 mg/dL
[2022-11-16] MEDS: cloNIDine HCL 0.1 MG TABLET PO (22:12)
[2022-11-16] MEDS: Prazosin HCL 5 MG CAPSULE PO (22:12)
[2022-11-16] MEDS: Zolpidem Tartrate 5 MG TABLET 10 MG PO (22:12)
[2022-11-16] MEDS: Docusate Sodium 100 MG CAPSULE PO (22:12)
[2022-11-16] MEDS: traZODone HCL 50 MG TABLET 150 MG PO (22:12)
[2022-11-16] MEDS: Benztropine Mesylate 0.5 MG TABLET PO (22:12)
[2022-11-16] MEDS: diphenhydrAMINE HCL 25 MG CAPSULE 100 MG PO (22:12)
[2022-11-16] MEDS: Lithium Carbonate 300 MG CAPSULE PO (22:12)
--- NOTE | 2022-11-17 06:22 | PC.NURSE ---
Patient at the time arrival was restless, agitated, and was engaging self abusive behavior by banging her head hard against the wall/self punching, non [id number], provider notified/Ordered Ativan 2 mg IM and Haldol 10 mg IM/administered as ordered @ 1930 with + effect, slept through the night, no distress observed/reported, medication compliant, behavior at this time non concerning, care team pending evaluation, patient is on 1:1 for safety checks, VSS, will continue to monitor.
[2022-11-17 06:30] VITALS: BP 123/55; PULSE 86; RESP 16; TEMP 36.4; O2SAT 97
[2022-11-17] MEDS: DULoxetine HCl 60 MG CAPSULE.DR PO (09:40)
[2022-11-17] MEDS: Omeprazole 20 MG CAPSULE.DR PO (09:40)
[2022-11-17] MEDS: Ferrous Sulfate 324 MG TABLET.DR PO (09:40)
[2022-11-17] MEDS: Benztropine Mesylate 0.5 MG TABLET PO (09:40)
[2022-11-17] MEDS: cloNIDine HCL 0.1 MG TABLET PO (09:40)
[2022-11-17] MEDS: Loratadine 10 MG TABLET PO (09:41)
== END 2022-11-17 10:03 | disposition home or self-care (01) ==
PROVIDERS: Nurse Practitioner Family; Emergency Provider Emergency Medicine; PCP Pediatrics
DX: F33.1 Major depressive disorder, recurrent, moderate (principal); R45.851 Suicidal ideations; F41.1 Generalized anxiety disorder; F43.0 Acute stress reaction; Z20.822 Contact with and (suspected) exposure to COVID-19; Z20.828 Contact with and (suspected) exposure to other viral communicable diseases; Z79.899 Other long term (current) drug therapy
CPT/HCPCS: 36415; 80178; 80307; 81001; 81025; 82077; 87635; 96372; 99284; J2060; S9485

== ENCOUNTER 2022-11-18 05:55 | Day surgery (SDC) | payer OTHER, SELFPAY ==
[2022-11-18] VITALS (7 sets, daily range): BP systolic 112–147; BP diastolic 57–80; PULSE 68–90; RESP 16–23; TEMP 36.6–37.2; O2SAT 94–97; BMI 40.4
[2022-11-18 06:41] LABS: COVID-19 Test Negative (Negative); IDNOW Serial# 08D9AD1C
--- NOTE | 2022-11-18 07:05 | P.PCN_ITS ---
ECT Procedure Note Diagnosis/Treatment Date of Service: 11/18/22 Diagnosis: Schizoaffective Disorder Previous ECT Date: 11/11/22 Interval Clinical Notes: The patient was on the ED yesterday due to suicidal ideation and self-harming behavior. On the ED, her lithium level was low. She feels that she is more distressed and requested to have ECT twice a week. Last ECT, we didn't have a therapeutic seizure. Time: Total time managing care of this patient today __30__ minutes. ECT Settings Device: THYMATRON DGx Electrode Placement: Bitemporal Program/Pulse Width: 0.50 Energy Percent: 100 Seizure Duration By EEG (in seconds): 23 By Motor Observation (in seconds): 17 Medications Administration General Anesthetic: Etomidate (14) Muscle Relaxant: Succinylcholine (100) Ancillary Medications Analgesics: Torodol - Pre ECT Anti-emetics: Zofran - Pre ECT Airway Management Airway Management: Bag Mask Ventilation Treatment Recommendations No Changes Recommended: No change Notes: I will contact her regular psychiatrist at [facility] Kemi Arvizu MD and reported the findings regarding the status of Crystal and her low [place] level. Pt Tolerated Procedure w/o Issue: Yes
--- NOTE | 2022-11-18 07:05 | MHC.SHP ---
Pre-Procedural Eval Section A Date of Service: 11/18/22 The patient is an INPATIENT: No Changes since office visit: No Cold of Flu in the past 2 weeks, No New Medical Problems, No Changes in Medication and No Patient answered all questions The History & Physical has been completed within 30 days and I have reviewed it.: Yes Section B Chief Complaint: Major depressive disorder, recurrent, severe with Allergies: Allergies Allergy/AdvReac Type Severity Reaction Status Date / Time carbamazepine [From TEGRETOL] AdvReac Unknown NAUSEA & Verified 09/23/22 03:55 VOMITING Fish Containing Products AdvReac Stomach Verified 09/23/22 03:55 Upset Plan I have reviewed the history and physical and performed a pertinent physical examination on my patient. No changes have occurred unless specified. Time Spent With Patient Time: Total time managing care of this patient today ____ minutes.
== END 2022-11-18 09:04 | disposition home or self-care (01) ==
PROVIDERS: PCP Pediatrics; Visit Provider Psychiatry & Neurology Psychiatry
PROC: (CPT 90870; principal; 2022-11-18 08:00)
DX: F25.9 Schizoaffective disorder, unspecified (principal); R45.851 Suicidal ideations; R45.88 Nonsuicidal self-harm; R79.89 Other specified abnormal findings of blood chemistry; Z88.8 Allergy status to other drugs, medicaments and biological substances
CPT/HCPCS: 87635; 90870; J0330; J1642; J1885; J2405

== ENCOUNTER 2022-11-25 05:52 | Day surgery (SDC) | payer OTHER, SELFPAY ==
[2022-11-25] VITALS (7 sets, daily range): BP systolic 116–159; BP diastolic 66–90; PULSE 87–96; RESP 16–24; TEMP 36.5–37.1; O2SAT 94–97; BMI 41.3
[2022-11-25 06:23] LABS: UPreg QC Valid YES; Urine Pregnancy NEGATIVE (NEGATIVE)
--- NOTE | 2022-11-25 06:48 | HO.ANESPROP2 ---
[facility] Active Problems Active Problems: All Active Problems (Updated 11/18/22 @ 00:01 by Adiel Sevilla) Injury of ligament of right knee (Acute) Sprain of anterior cruciate ligament of right knee (Acute) Hernia (Chronic) Schizoaffective disorder, depressive type (Chronic) Sprain of left foot (Acute) COVID-19 (Acute) COVID-19 (Acute) Chronic post-traumatic stress disorder (PTSD) (Chronic) Increased BMI (Acute) GERD (gastroesophageal reflux disease) (Acute) Borderline personality disorder (Chronic) Past Medical History Medical History Acute post-traumatic stress disorder Adjustment disorder Anxiety Asthma Borderline personality disorder Chronic post-traumatic stress disorder (PTSD) COPD (chronic obstructive pulmonary disease) Depression GERD (gastroesophageal reflux disease) History of electroconvulsive therapy Increased BMI Injury, self-inflicted Intentional self-harm PTSD (post-traumatic stress disorder) Recurrent major depression-severe Schizoaffective disorder Self-harming behavior Suicidal ideation Suicidal ideation Family History Family History Mother Brain cancer Other No family history of cardiac disease Family history of problems with anesthesia: No Surgical History History of Problems with Anesthesia: No Social History Social History Household Members: Other Household Members Other:: custodial Housing: Assisted Living Facility Housing Other:: custodial Do you presently have visiting nurse or other home services: No Alcohol intake: never Patient Tobacco Use Status: Current everyday Tobacco user Tobacco use type: Cigarette Cigarette Packs Per Day: 0.5 Cigarettes Per Day: 10.0 Years Smoked: 20 Smoked in Last 30 Days: Yes e-Cigarette/Vaping Use: Never Used Second Hand Smoke Exposure: Yes Use of substances other than those prescribed or required for medical reasons: Yes Substance Use Type: Marijuana Substance Use Frequency: Daily Are you DNR?: No Advance Directives: No Advance Directives Information Provided: Yes service: No Sexual orientation: Straight/Heterosexual Meds Allergies Allergy/AdvReac Type Severity Reaction Status Date / Time carbamazepine [From TEGRETOL] AdvReac Unknown NAUSEA & Verified 11/25/22 06:17 VOMITING Fish Containing Products AdvReac Stomach Verified 11/25/22 06:17 Upset Home Medications Medication Instructions Recorded Confirmed Last Taken Type acetaminophen 500 mg tablet 1 tab PO Q6H PRN pain 08/14/22 11/16/22 Unknown History albuterol sulfate 90 mcg/actuation 2 puff inhalation BID PRN Wheezing 08/14/22 11/16/22 Unknown History aerosol inhaler (ProAir HFA) diphenhydramine HCl 50 mg capsule 2 cap PO BEDTIME 08/14/22 11/16/22 Unknown History (Banophen) haloperidol 5 mg tablet 1 tab PO TID PRN Agitation 08/14/22 11/16/22 Unknown History hydroxyzine pamoate 50 mg capsule 1 cap PO BID PRN Anxiety 08/14/22 11/16/22 Unknown History nicotine (polacrilex) 2 mg gum 2 mg buccal Q2H PRN Smoking 08/14/22 11/16/22 Unknown History Cessation omeprazole 20 mg tablet,delayed 20 mg PO DAILY 08/14/22 11/16/22 Unknown History release zolpidem 10 mg tablet 1 tab PO BEDTIME 08/14/22 11/16/22 Unknown History cetirizine 10 mg tablet 1 tab PO DAILY 10/07/22 11/16/22 Unknown History fluticasone propionate 230 2 puff inhalation BID 10/07/22 11/16/22 Unknown History mcg-salmeterol 21 mcg/actuation HFA inhaler (Advair HFA) benztropine 0.5 mg tablet 1 tab PO BID 10/26/22 11/16/22 Unknown History clonidine HCl 0.1 mg tablet 1 tab PO TID 10/26/22 11/16/22 Unknown History duloxetine 60 mg capsule,delayed 1 cap PO DAILY 10/26/22 11/16/22 Unknown History release ferrous sulfate 325 mg (65 mg 1 tab PO DAILY 10/26/22 11/16/22 Unknown History iron) tablet,delayed release haloperidol decanoate 100 mg/mL 100 mg IM Q4W 10/26/22 11/16/22 10/21/22 History intramuscular solution lithium carbonate 300 mg tablet 300 mg PO DAILY@1700 10/26/22 11/16/22 Unknown History prazosin 5 mg capsule 5 mg PO BEDTIME 10/26/22 11/16/22 Unknown History Exam Exam Date and Time: November 25, 2022 0648 Height,Weight and Vital Signs: Height 4 ft 11 in Weight 92.986 kg Last Vital Signs Temp 97.8 F 11/25/22 06:18 Pulse 90 11/25/22 06:18 Resp 16 11/25/22 06:18 BP 128/75 11/25/22 06:18 Pulse Ox 97 11/25/22 06:18 O2 Del Method Room Air 11/25/22 06:18 Pertinent Lab Results Pertinent Lab Results: Laboratory Tests 11/25/22 06:11 Urine Test NEGATIVE Airway Mallampati Class: II TM Dist: >3cm Neck ROM: Full Heart: rrr Lungs: cta Assessment and Plan Assessment Anesthesia Assessment: Anesthesia Plan Discussed and Chart Reviewed Final Anesthetic Review Family History of Problems with Anesthesia: No History of Problems with Anesthesia: No NPO: Yes ASA Class: III Final Preanesthetic Review: No Changes in Pt Med Stat, Meds/Allgs Chart Reviewed and Consent Obtained/Reviewed Patient Risk: Intermediate Procedure Risk: Intermediate Anesthetic Plan Anesthetic Plan: GA Disposition: Standard PACU
[2022-11-25] MEDS: Lactated Ringers 1,000 ML 50 ML IVCONT (06:54)
--- NOTE | 2022-11-25 07:01 | MHC.SHP ---
Pre-Procedural Eval Section A Date of Service: 11/25/22 The patient is an INPATIENT: No Changes since office visit: No Cold of Flu in the past 2 weeks, No New Medical Problems, No Changes in Medication and No Patient answered all questions The History & Physical has been completed within 30 days and I have reviewed it.: Yes Section B Chief Complaint: Major depressive disorder, recurrent, severe with Allergies: Allergies Allergy/AdvReac Type Severity Reaction Status Date / Time carbamazepine [From TEGRETOL] AdvReac Unknown NAUSEA & Verified 11/25/22 06:17 VOMITING Fish Containing Products AdvReac Stomach Verified 11/25/22 06:17 Upset Plan I have reviewed the history and physical and performed a pertinent physical examination on my patient. No changes have occurred unless specified. Time Spent With Patient Time: Total time managing care of this patient today ____ minutes.
--- NOTE | 2022-11-25 07:01 | HO.ECTPROC ---
ECT Procedure Note Diagnosis/Treatment Date of Service: 11/25/22 Diagnosis: Schizoaffective Disorder Previous ECT Date: 11/16/22 Treatment: Maintenance Interval Clinical Notes: The patient reports dysphoira and anxiety, no recent self-harming. No side effects. She was tearful since incidentally, she tested positive to Fentanyl but she has not taken opioids. I informed Dr. Lovelace, her regular psychiatrist that Stella's lithium level is low. Time: Total time managing care of this patient today __30__ minutes. ECT Settings Device: THYMATRON DGx Electrode Placement: Bitemporal Program/Pulse Width: 0.50 Energy Percent: 100 Seizure Duration By EEG (in seconds): 32 By Motor Observation (in seconds): 16 Medications Administration General Anesthetic: Etomidate (14) Muscle Relaxant: Succinylcholine (100) Ancillary Medications Analgesics: Torodol - Pre ECT Anti-emetics: Zofran - Pre ECT Airway Management Airway Management: Bag Mask Ventilation Treatment Recommendations No Changes Recommended: No change Pt Tolerated Procedure w/o Issue: Yes
== END 2022-11-25 09:09 | disposition home or self-care (01) ==
PROVIDERS: Anesthesiology; PCP Pediatrics; Visit Provider Psychiatry & Neurology Psychiatry
PROC: (CPT 90870; principal; 2022-11-25 07:30)
DX: F20.9 Schizophrenia, unspecified (principal); F41.1 Generalized anxiety disorder; F43.10 Post-traumatic stress disorder, unspecified; F60.3 Borderline personality disorder; J45.909 Unspecified asthma, uncomplicated; Z79.51 Long term (current) use of inhaled steroids; Z79.899 Other long term (current) drug therapy; Z88.8 Allergy status to other drugs, medicaments and biological substances; F17.210 Nicotine dependence, cigarettes, uncomplicated
CPT/HCPCS: 81025; 90870; J0330; J1642; J1885; J2405

== ENCOUNTER 2022-11-26 19:07 | Emergency (ER) | payer OTHER, SELFPAY ==
--- NOTE | 2022-11-26 19:16 | ED.PSYCH ---
HPI - Psych General Chief Complaint: Psychiatric Symptoms Stated Complaint: si Time Seen by Provider: 11/26/22 19:09 Source: patient Mode of arrival: ambulatory Limitations: no limitations History of Present Illness HPI Narrative: 37-year-old female well known to our facility past medical history significant for schizoaffective disorder depressive type, borderline personality disorder,? PTSD, self-inflicted injuries presenting to the emergency department via ambulance for suicidal ideation with plan to cut.? Patient reports increasing life stressors tells me that today someone was talking to her about a young man being tortured to and this triggered her. Patient tells me she has been cutting her wrist for the past week and has been using clean razor blades.? Patient up-to-date on tetanus shot.? Patient tells me she cuts to feel something.? Reports that she has only suicidal however not homicidal.? Reports that she has visual and auditory hallucinations all the time telling her to cut herself.? Denies drugs, alcohol and tobacco.? No medical complaints. Related Data Home Medications Medication Instructions Recorded Confirmed acetaminophen 500 mg tablet 1 tab PO Q6H PRN pain 08/14/22 11/26/22 albuterol sulfate 90 mcg/actuation 2 puff inhalation BID PRN Wheezing 08/14/22 11/26/22 aerosol inhaler (ProAir HFA) diphenhydramine HCl 50 mg capsule 2 cap PO BEDTIME 08/14/22 11/26/22 (Banophen) haloperidol 5 mg tablet 1 tab PO TID PRN Agitation 08/14/22 11/26/22 hydroxyzine pamoate 50 mg capsule 1 cap PO BID PRN Anxiety 08/14/22 11/26/22 nicotine (polacrilex) 2 mg gum 2 mg buccal Q2H PRN Smoking 08/14/22 11/26/22 Cessation omeprazole 20 mg tablet,delayed 20 mg PO DAILY 08/14/22 11/26/22 release zolpidem 10 mg tablet 1 tab PO BEDTIME 08/14/22 11/26/22 cetirizine 10 mg tablet 1 tab PO DAILY 10/07/22 11/26/22 fluticasone propionate 230 2 puff inhalation BID 10/07/22 11/26/22 mcg-salmeterol 21 mcg/actuation HFA inhaler (Advair HFA) benztropine 0.5 mg tablet 1 tab PO BID 10/26/22 11/26/22 clonidine HCl 0.1 mg tablet 1 tab PO TID 10/26/22 11/26/22 duloxetine 60 mg capsule,delayed 1 cap PO DAILY 10/26/22 11/26/22 release ferrous sulfate 325 mg (65 mg 1 tab PO DAILY 10/26/22 11/26/22 iron) tablet,delayed release haloperidol decanoate 100 mg/mL 100 mg IM Q4W 10/26/22 11/26/22 intramuscular solution lithium carbonate 300 mg tablet 300 mg PO DAILY@1700 10/26/22 11/26/22 prazosin 5 mg capsule 5 mg PO BEDTIME 10/26/22 11/26/22 Previous Rx's Medication Instructions Recorded docusate sodium 100 mg capsule 100 mg PO BID 30 days #60 caps 09/01/22 trazodone 50 mg tablet 150 mg PO BEDTIME 30 days #90 tabs 09/01/22 Allergies Allergy/AdvReac Type Severity Reaction Status Date / Time carbamazepine [From TEGRETOL] AdvReac Unknown NAUSEA & Verified 11/25/22 06:17 VOMITING Fish Containing Products AdvReac Stomach Verified 11/25/22 06:17 Upset Review of Systems Review of Systems: Constitutional : No Weight loss, No Fever, No Chills, No Fatigue, No Malaise ENT/Mouth : No sore throat, No Rhinorrhea Eyes: No Eye Pain, No Swelling, No Redness Cardiovascular : No Chest Pain, No SOB, No Dyspnea on Exertion, No Orthopnea, No Edema, No Palpitations Respiratory : No Cough, No Sputum, No Wheezing Gastrointestinal : No Nausea, No Vomiting, No Diarrhea, No Constipation, No abdominal Pain, No Hematochezia, No Melena Genitourinary : No Dysuria, No Urinary Frequency, No Hematuria, Musculoskeletal : No joint pain, No Myalgias, No Joint Swelling Skin : No Skin Lesions, No rash Neuro : No Weakness, No Numbness, No Dizziness, No Headache Psych : + Anxiety/Panic, + Depression, + SI, No HI. All other systems reviewed and are negative Yes all other systems are reviewed and are negative PMFSH Past Medical History Attestation statement: The following information was validated with the patient. Source: old records reviewed and nursing notes reviewed Medical History Acute post-traumatic stress disorder Adjustment disorder Anxiety Asthma Borderline personality disorder Chronic post-traumatic stress disorder (PTSD) COPD (chronic obstructive pulmonary disease) Depression GERD (gastroesophageal reflux disease) History of electroconvulsive therapy Increased BMI Injury, self-inflicted Intentional self-harm PTSD (post-traumatic stress disorder) Recurrent major depression-severe Schizoaffective disorder Self-harming behavior Suicidal ideation Suicidal ideation Family History Family History Mother Brain cancer Other No family history of cardiac disease Social History Social History Household Members: Other Household Members Other:: prison Housing: Assisted Living Facility Housing Other:: prison Do you presently have visiting nurse or other home services: No Alcohol intake: never Patient Tobacco Use Status: Current everyday Tobacco user Tobacco use type: Cigarette Cigarette Packs Per Day: 0.5 Cigarettes Per Day: 10.0 Years Smoked: 20 e-Cigarette/Vaping Use: Never Used Second Hand Smoke Exposure: Yes Substance Use Type: Marijuana Advance Directives: No Advance Directives Information Provided: No service: No Sexual orientation: Straight/Heterosexual Physical Exam Vital Signs: Vital Signs: Last Vital Signs Temp 98.2 F 11/26/22 19:17 Pulse 86 11/26/22 21:20 Resp 20 11/26/22 21:20 BP 122/32 L 11/26/22 21:20 Pulse Ox 95 11/26/22 19:17 O2 Del Method Room Air 11/26/22 19:17 BMI result Body Mass Index 41.3 vss Course Reevaluation(s) Reevaluation #1: CBC appears to have a normocytic anemia around patient's baseline. Chemistry without electrolyte abnormalities requiring intervention. UA negative for infection. Salicylates, acetaminophen negative. Enemy Swim low will continue her on her home dose. Ethanol negative. Patient was evaluated by Shavon in the care team, patient feeling much better, no longer having thoughts of harming herself. She said she is not suicidal and was using cutting as a coping skill. At this time patient will be picked up by her prison. Patient excited to go back to prison. I feel comfortable with plan. Advised for prompt PCP and therapy and psychiatry follow-up. Time: :42 Medications Administered Generic Name Dose Route Start Last Admin Trade Name Griffinq PRN Reason Stop Dose Admin Benztropine Mesylate 0.5 mg 11/26/22 21:00 11/26/22 21:14 Benztropine Mesylate 0.5 Mg Tablet PO 0.5 mg BID SULEIMAN Administration Clonidine HCl 0.1 mg 11/26/22 21:00 11/26/22 21:14 Clonidine Hcl 0.1 Mg Tablet PO 0.1 mg TID SULEIMAN Administration Protocol Diphenhydramine HCl 50 mg 11/26/22 21:00 11/26/22 21:15 Diphenhydramine Hcl 25 Mg Capsule PO 50 mg BEDTIME SULEIMAN Administration Docusate Sodium 100 mg 11/26/22 21:00 11/26/22 21:14 Docusate Sodium 100 Mg Capsule PO Not Given BID SULEIMAN Haloperidol 5 mg 11/26/22 20:49 11/26/22 21:14 Haloperidol 5 Mg Tablet PO 5 mg TID PRN Administration Agitation Hydroxyzine HCl 50 mg 11/26/22 20:49 11/26/22 21:14 Hydroxyzine Hcl 50 Mg Tablet PO 50 mg BID PRN Administration Anxiety Prazosin HCl 5 mg 11/26/22 21:00 11/26/22 21:14 Prazosin Hcl 5 Mg Capsule PO 5 mg BEDTIME SULEIMAN Administration Protocol Trazodone HCl 150 mg 11/26/22 21:00 11/26/22 21:14 Trazodone Hcl 50 Mg Tablet PO 150 mg BEDTIME SULEIMAN Administration Zolpidem Tartrate 5 mg 11/26/22 21:00 11/26/22 21:14 Zolpidem Tartrate 5 Mg Tablet PO 5 mg BEDTIME SULEIMAN Administration Medical Decision Making Medical Decision Making [facility] Narrative: 1918 37-year-old female presents with SI, depression X 1 day due to increasing life stressors PE remarkable for superficial healed self inflicted wounds over bilateral upper extremities, no active bleeding. Likely PTSD, suicidal ideation, depression, BPD, schizoaffective disorder depressive type, self-mutilation.? Less likely metabolic disturbances, electrolyte imbalances Plan at this time is medical clearance and evaluation by the behavioral health team. Differential Diagnosis Differential Diagnoses: The differential diagnosis associated with the presentation includes Likely PTSD, suicidal ideation, depression, BPD, schizoaffective disorder depressive type, self-mutilation.? Less likely metabolic disturbances, electrolyte imbalances Admission/Observation Consideration of admission/observation: Escalation of care including admission/observation considered Lab Data MDM Lab Attestation statement: I reviewed the patient's lab results. 11/26/22 21:37 11/26/22 21:37 Labs: Lab Results 11/26/22 11/26/22 11/26/22 Range/Units 19:36 21:37 21:37 WBC 8.5 (4.8-10.8) X10*3/uL RBC 4.03 L (4.20-5.50) X10*6/uL Hgb 11.6 L (12.0-16.0) g/dl Hct 35.7 L (37.0-47.0) % MCV 88.6 (80.0-98.0) fL MCH 28.8 (27.0-33.0) pg MCHC 32.5 (31.0-35.0) g/dl RDW 14.1 (11.0-16.0) % Plt Count 207 (160-400) X10*3/uL MPV 11.0 (9.4-12.3) fL Immature Gran % (Auto) 0.2 (0.0-0.4) % Neut % (Auto) 64.7 (45-73) % Lymph % (Auto) 28.9 (20-40) % [place] % (Auto) 4.4 (2-11) % Eos % (Auto) 1.3 (0-4) % Baso % (Auto) 0.5 (0-2) % Lymph # (Auto) 2.5 (1.2-4.9) X10*3/uL [place] # (Auto) 0.4 (0.1-1.2) X10*3/uL Eos # (Auto) 0.1 (0.0-0.4) X10*3/uL Baso # (Auto) 0.0 (0.0-0.2) X10*3/uL Abs Immat Gran (auto) 0.02 (0.00-0.03) X10*3/uL Absolute Neuts (auto) 5.5 (2.0-8.3) x10*3/uL Absolute Nucleated RBC 0.000 (0.0-0.012) X10*3/uL Nucleated RBC % (auto) 0.0 (0.0-0.2) /100WBC Sodium 139 (135-145) mmol/L Potassium 3.8 (3.3-5.1) mmol/L Chloride 109 H (96-108) mmol/L Carbon Dioxide 24 (22-29) mmol/L Anion Gap 10 L (12-20) BUN 7 L (9-16) mg/dL Creatinine 0.73 (0.5-1.4) mg/dL Estim Creat Clear Calc 106.1 Estimated GFR > 60 Random Glucose 131 H (60-115) mg/dL Calcium 8.9 (8.4-10.2) mg/dL Magnesium 1.8 (1.6-2.6) mg/dL Total Bilirubin 0.3 (0.0-1.0) mg/dL AST 10 (5-31) U/L ALT 9 (0-31) U/L Alkaline Phosphatase 55 (39-117) U/L Total Protein 5.9 L (6.5-8.0) g/dL Albumin 3.8 (3.5-5.0) g/dL Urine Color Urine Appearance Urine pH (5.0-9.0) Ur Specific [place] (1.005-1.025) Urine Protein (Neg-Trace) mg/dL Urine Glucose (UA) (Negative) mg/dL Urine Ketones (Negative) mg/dL Urine Blood (Negative) Urine Nitrite (Negative) Ur Leukocyte Esterase (Negative) Salicylates < 5.0 L (15-30) mg/dL Acetaminophen < 17 (<30) mcg/mL Enemy Swim (0.60-1.20) mmol/L Ethyl Alcohol < 10 mg/dL COVID-19 (RAFAL) Negative (Negative) COVID-19 Clin Com See Note 11/26/22 11/26/22 Range/Units 21:37 22:01 WBC (4.8-10.8) X10*3/uL RBC (4.20-5.50) X10*6/uL Hgb (12.0-16.0) g/dl Hct (37.0-47.0) % MCV (80.0-98.0) fL MCH (27.0-33.0) pg MCHC (31.0-35.0) g/dl RDW (11.0-16.0) % Plt Count (160-400) X10*3/uL MPV (9.4-12.3) fL Immature Gran % (Auto) (0.0-0.4) % Neut % (Auto) (45-73) % Lymph % (Auto) (20-40) % [place] % (Auto) (2-11) % Eos % (Auto) (0-4) % Baso % (Auto) (0-2) % Lymph # (Auto) (1.2-4.9) X10*3/uL [place] # (Auto) (0.1-1.2) X10*3/uL Eos # (Auto) (0.0-0.4) X10*3/uL Baso # (Auto) (0.0-0.2) X10*3/uL Abs Immat Gran (auto) (0.00-0.03) X10*3/uL Absolute Neuts (auto) (2.0-8.3) x10*3/uL Absolute Nucleated RBC (0.0-0.012) X10*3/uL Nucleated RBC % (auto) (0.0-0.2) /100WBC Sodium (135-145) mmol/L Potassium (3.3-5.1) mmol/L Chloride (96-108) mmol/L Carbon Dioxide (22-29) mmol/L Anion Gap (12-20) BUN (9-16) mg/dL Creatinine (0.5-1.4) mg/dL Estim Creat Clear Calc Estimated GFR Random Glucose (60-115) mg/dL Calcium (8.4-10.2) mg/dL Magnesium (1.6-2.6) mg/dL Total Bilirubin (0.0-1.0) mg/dL AST (5-31) U/L ALT (0-31) U/L Alkaline Phosphatase (39-117) U/L Total Protein (6.5-8.0) g/dL Albumin (3.5-5.0) g/dL Urine Color Yellow Urine Appearance Clear Urine pH 7.5 (5.0-9.0) Ur Specific [place] 1.010 (1.005-1.025) Urine Protein Negative (Neg-Trace) mg/dL Urine Glucose (UA) Negative (Negative) mg/dL Urine Ketones Negative (Negative) mg/dL Urine Blood Negative (Negative) Urine Nitrite Negative (Negative) Ur Leukocyte Esterase Negative (Negative) Salicylates (15-30) mg/dL Acetaminophen (<30) mcg/mL Enemy Swim 0.16 L (0.60-1.20) mmol/L Ethyl Alcohol mg/dL COVID-19 (RAFAL) (Negative) COVID-19 Clin Com Core Measures AMI core measures followed: Yes Measure exclusions: not indicated Discharge Plan Discharge Clinical Impression: Acute anxiety, Borderline personality disorder Patient Disposition: Home, Self-Care Instructions: Borderline Personality Disorder (DC), Anxiety (ED) Additional Instructions: Take your medications as prescribed. If you were prescribed antibiotics today, it is important that you take your medication to their entirety, do not skip any doses, do not finish them early. Follow-up with your primary care provider this week as well as her therapist and psychiatrist. Return to the emergency department with new or worsening symptoms. Such as fevers, chills, chest pain, shortness of breath, nausea, vomiting, dizziness, headache, vision changes, lethargy, suicidal and homicidal ideation In case of emergency call 911 Prescriptions: No Action haloperidol 5 mg tablet 1 tab PO TID PRN (Reason: Agitation) diphenhydramine HCl [Banophen] 50 mg capsule 2 cap PO BEDTIME hydroxyzine pamoate 50 mg capsule 1 cap PO BID PRN (Reason: Anxiety) zolpidem 10 mg tablet 1 tab PO BEDTIME acetaminophen 500 mg tablet 1 tab PO Q6H PRN (Reason: pain) albuterol sulfate [ProAir HFA] 90 mcg/actuation HFA aerosol inhaler 2 puff inhalation BID PRN (Reason: Wheezing) nicotine (polacrilex) 2 mg Gum 2 mg BUCCAL Q2H PRN (Reason: Smoking Cessation) omeprazole 20 mg Tablet,Delayed Release (Dr/Ec) 20 mg PO DAILY lithium carbonate 300 mg tablet 300 mg PO DAILY@1700 clonidine HCl 0.1 mg tablet 1 tab PO TID benztropine 0.5 mg tablet 1 tab PO BID haloperidol decanoate 100 mg/mL solution 100 mg IM Q4W prazosin 5 mg capsule 5 mg PO BEDTIME ferrous sulfate 325 mg (65 mg iron) tablet,delayed release (DR/EC) 1 tab PO DAILY duloxetine 60 mg capsule,delayed release(DR/EC) 1 cap PO DAILY trazodone 50 mg Tablet 150 mg PO BEDTIME 30 Days Qty: 90 0RF docusate sodium 100 mg Capsule 100 mg PO BID 30 Days Qty: 60 0RF Rx Instructions: HOLD FOR LOOSE STOOL cetirizine 10 mg tablet 1 tab PO DAILY fluticasone propion-salmeterol [Advair HFA] 230-21 mcg/actuation HFA aerosol inhaler 2 puff INHALATION BID Referrals: [facility] [Provider Group] - 1 day Carroll Gaviria MD [Primary Care Provider] - 2 days Stand Alone Forms: Work/School Release
[2022-11-26 19:17] VITALS: BP 121/79; PULSE 89; RESP 16; TEMP 36.8; O2SAT 95; BMI 41.3
[2022-11-26 19:55] LABS: COVID-19 Test Negative (Negative); IDNOW Serial# 08D9AD1C
[2022-11-26] MEDS: Benztropine Mesylate 0.5 MG TABLET PO (21:14)
[2022-11-26] MEDS: HaloperidoL 5 MG TABLET PO (21:14)
[2022-11-26] MEDS: Prazosin HCL 5 MG CAPSULE PO (21:14)
[2022-11-26] MEDS: Zolpidem Tartrate 5 MG TABLET PO (21:14)
[2022-11-26] MEDS: hydrOXYzine HCL 50 MG TABLET PO (21:14)
[2022-11-26] MEDS: traZODone HCL 50 MG TABLET 150 MG PO (21:14)
[2022-11-26] MEDS: cloNIDine HCL 0.1 MG TABLET PO (21:14)
[2022-11-26] MEDS: diphenhydrAMINE HCL 25 MG CAPSULE 50 MG PO (21:15)
[2022-11-26 21:20] VITALS: BP 122/32; PULSE 86; RESP 20
[2022-11-26 21:43] LABS: MANUAL DIFF FLAG NO
[2022-11-26 21:53] LABS: Lithium 0.16 mmol/L (0.60-1.20)
[2022-11-26 21:59] LABS: Basophils Percent Auto 0.5 % (0-2); Eosinophils Absolute Auto 0.1 X10*3/uL (0.0-0.4); Eosinophils Percent Auto 1.3 % (0-4); Hematocrit 35.7 % (37.0-47.0); Hemoglobin 11.6 g/dl (12.0-16.0); Imm Gran Abs Auto 0.02 X10*3/uL (0.00-0.03); Imm Gran Pct Auto 0.2 % (0.0-0.4); Lymphocytes Absolute Auto 2.5 X10*3/uL (1.2-4.9); Lymphocytes Percent Auto 28.9 % (20-40); Mean Corpuscular HGB Conc 32.5 g/dl (31.0-35.0); Mean Corpuscular Hemoglobin 28.8 pg (27.0-33.0); Mean Corpuscular Volume 88.6 fL (80.0-98.0); Monocytes Absolute Auto 0.4 X10*3/uL (0.1-1.2); Monocytes Percent Auto 4.4 % (2-11); Neutrophils Absolute Auto 5.5 x10*3/uL (2.0-8.3); Neutrophils Percent Auto 64.7 % (45-73); Platelet Count 207 X10*3/uL (160-400); Red Blood Count 4.03 X10*6/uL (4.20-5.50); Red Cell Distribution Width 14.1 % (11.0-16.0); White Blood Count 8.5 X10*3/uL (4.8-10.8)
[2022-11-26 22:05] LABS: Acetaminophen LAB < 17 mcg/mL (<30); Alanine Aminotransferase 9 U/L (0-31); Albumin Level 3.8 g/dL (3.5-5.0); Alkaline Phosphatase 55 U/L (39-117); Anion Gap 10 (12-20); Aspartate Amino Transferase 10 U/L (5-31); Bilirubin Total 0.3 mg/dL (0.0-1.0); Blood Urea Nitrogen 7 mg/dL (9-16); Calcium 8.9 mg/dL (8.4-10.2); Carbon Dioxide 24 mmol/L (22-29); Chloride 109 mmol/L (96-108); Creatinine Clr Calc Pharmacy 106.1; Estimated Glomerular Filt Rate > 60; Ethanol < 10 mg/dL; Glucose Random 131 mg/dL (60-115); Magnesium 1.8 mg/dL (1.6-2.6); Potassium 3.8 mmol/L (3.3-5.1); Salicylate < 5.0 mg/dL (15-30); Sodium 139 mmol/L (135-145); Total Protein 5.9 g/dL (6.5-8.0)
[2022-11-26 22:23] LABS: Appearance Urine Clear; Color Urine Yellow; Glucose Urine UA Negative (Negative); Leukocyte Esterase Urine Negative (Negative); Nitrite Urine Negative (Negative); PH 7.5 (5.0-9.0); Urine Blood Negative (Negative); Urine Ketones Negative (Negative); Urine Protein Negative (Neg-Trace)
[2022-11-26 23:48] LABS: Amphetamine Screen Urine Not Detected (Not Detect); Barbiturates, Urine Not Detected (Not Detect); Benzodiazepines Screen Urine Not Detected (Not Detect); Cannabinoid Screen Urine POSITIVE (Not Detect); Cocaine Screen Urine Not Detected (Not Detect); Fentanyl, urine POSITIVE (Not Detect); Opiate Screen Urine Not Detected (Not Detect); Phencyclidine Screen Urine Not Detected (Not Detect)
== END 2022-11-26 22:45 | disposition home or self-care (01) ==
PROVIDERS: Physician Assistant; Emergency Provider Emergency Medicine; PCP Pediatrics
DX: R45.851 Suicidal ideations (principal); F25.1 Schizoaffective disorder, depressive type; F41.9 Anxiety disorder, unspecified; F34.1 Dysthymic disorder; F17.210 Nicotine dependence, cigarettes, uncomplicated; Z20.822 Contact with and (suspected) exposure to COVID-19; Z20.828 Contact with and (suspected) exposure to other viral communicable diseases; Z71.6 Tobacco abuse counseling; Z79.899 Other long term (current) drug therapy
CPT/HCPCS: 36415; 80053; 80143; 80178; 80179; 80307; 81003; 82077; 83735; 85025; 87635; 99283; 99284; S9485

== ENCOUNTER 2022-12-07 06:00 | Day surgery (SDC) | payer OTHER, SELFPAY ==
[2022-12-07] VITALS (7 sets, daily range): BP systolic 112–147; BP diastolic 63–91; PULSE 89–99; RESP 16–18; TEMP 36.3–36.8; O2SAT 95–98; BMI 43.4
[2022-12-07 06:44] LABS: UPreg QC Valid YES; Urine Pregnancy NEGATIVE (NEGATIVE)
--- NOTE | 2022-12-07 06:46 | P.CONAN_ITS ---
[facility] Active Problems Active Problems: All Active Problems (Updated 11/27/22 @ 00:03 by Adiel Sevilla) Injury of ligament of right knee (Acute) Sprain of anterior cruciate ligament of right knee (Acute) Hernia (Chronic) Schizoaffective disorder, depressive type (Chronic) Sprain of left foot (Acute) COVID-19 (Acute) COVID-19 (Acute) Chronic post-traumatic stress disorder (PTSD) (Chronic) Increased BMI (Acute) GERD (gastroesophageal reflux disease) (Acute) Borderline personality disorder (Chronic) Past Medical History Medical History Acute post-traumatic stress disorder Adjustment disorder Anxiety Asthma Borderline personality disorder Chronic post-traumatic stress disorder (PTSD) COPD (chronic obstructive pulmonary disease) Depression GERD (gastroesophageal reflux disease) History of electroconvulsive therapy Increased BMI Injury, self-inflicted Intentional self-harm PTSD (post-traumatic stress disorder) Recurrent major depression-severe Schizoaffective disorder Self-harming behavior Suicidal ideation Suicidal ideation Family History Family History Mother Brain cancer Other No family history of cardiac disease Family history of problems with anesthesia: No Surgical History History of Problems with Anesthesia: No Social History Social History Household Members: Other Household Members Other[facility] Housing[facility] Housing Other:: [facility] Do you presently have visiting nurse or other home services: No Alcohol intake: never Patient Tobacco Use Status: Current everyday Tobacco user Tobacco use type: Cigarette Cigarette Packs Per Day: 0.5 Cigarettes Per Day: 10.0 Years Smoked: 20 e-Cigarette/Vaping Use: Never Used Second Hand Smoke Exposure: Yes Substance Use Type: Marijuana Advance Directives: No Advance Directives Information Provided: Yes service: No Sexual orientation: Straight/Heterosexual Meds Allergies Allergy/AdvReac Type Severity Reaction Status Date / Time carbamazepine [From TEGRETOL] AdvReac Unknown NAUSEA & Verified 11/25/22 06:17 VOMITING Fish Containing Products AdvReac Stomach Verified 11/25/22 06:17 Upset Home Medications Medication Instructions Recorded Confirmed Last Taken Type acetaminophen 500 mg tablet 1 tab PO Q6H PRN pain 08/14/22 11/26/22 Unknown History albuterol sulfate 90 mcg/actuation 2 puff inhalation BID PRN Wheezing 08/14/22 11/26/22 Unknown History aerosol inhaler (ProAir HFA) diphenhydramine HCl 50 mg capsule 2 cap PO BEDTIME 08/14/22 11/26/22 Unknown History (Banophen) haloperidol 5 mg tablet 1 tab PO TID PRN Agitation 08/14/22 11/26/22 Unknown History hydroxyzine pamoate 50 mg capsule 1 cap PO BID PRN Anxiety 08/14/22 11/26/22 Unknown History nicotine (polacrilex) 2 mg gum 2 mg buccal Q2H PRN Smoking 08/14/22 11/26/22 Unknown History Cessation omeprazole 20 mg tablet,delayed 20 mg PO DAILY 08/14/22 11/26/22 Unknown History release zolpidem 10 mg tablet 1 tab PO BEDTIME 08/14/22 11/26/22 Unknown History cetirizine 10 mg tablet 1 tab PO DAILY 10/07/22 11/26/22 Unknown History fluticasone propionate 230 2 puff inhalation BID 10/07/22 11/26/22 Unknown History mcg-salmeterol 21 mcg/actuation HFA inhaler (Advair HFA) benztropine 0.5 mg tablet 1 tab PO BID 10/26/22 11/26/22 Unknown History clonidine HCl 0.1 mg tablet 1 tab PO TID 10/26/22 11/26/22 Unknown History duloxetine 60 mg capsule,delayed 1 cap PO DAILY 10/26/22 11/26/22 Unknown History release ferrous sulfate 325 mg (65 mg 1 tab PO DAILY 10/26/22 11/26/22 Unknown History iron) tablet,delayed release haloperidol decanoate 100 mg/mL 100 mg IM Q4W 10/26/22 11/26/22 11/18/22 History intramuscular solution lithium carbonate 300 mg tablet 300 mg PO DAILY@1700 10/26/22 11/26/22 Unknown History prazosin 5 mg capsule 5 mg PO BEDTIME 10/26/22 11/26/22 Unknown History Exam Exam Date and Time: December 07, 2022 0646 Pertinent Lab Results Pertinent Lab Results: Laboratory Tests 12/07/22 06:10 Urine Test NEGATIVE Airway Mallampati Class: II (missing a couple teeth) TM Dist: >3cm Neck ROM: Full Heart: rrr Lungs: cta Assessment and Plan Assessment Anesthesia Assessment: Anesthesia Plan Discussed and Chart Reviewed Final Anesthetic Review Family History of Problems with Anesthesia: No History of Problems with Anesthesia: No NPO: Yes ASA Class: III Final Preanesthetic Review: No Changes in Pt Med Stat, Meds/Allgs Chart Reviewed and Consent Obtained/Reviewed Patient Risk: Intermediate Procedure Risk: Intermediate Anesthetic Plan Anesthetic Plan: GA Disposition: Standard PACU
[2022-12-07] MEDS: Lactated Ringers 1,000 ML 50 ML IVCONT (06:50)
--- NOTE | 2022-12-07 06:56 | PC.NURSE ---
port a cath access completed by magali mercado rn
--- NOTE | 2022-12-07 06:58 | MHC.SHP ---
Pre-Procedural Eval Section A Date of Service: 12/07/22 The patient is an INPATIENT: No Changes since office visit: No Cold of Flu in the past 2 weeks, No New Medical Problems, No Changes in Medication and No Patient answered all questions The History & Physical has been completed within 30 days and I have reviewed it.: Yes Section B Chief Complaint: Major depressive disorder, recurrent, severe Allergies: Allergies Allergy/AdvReac Type Severity Reaction Status Date / Time carbamazepine [From TEGRETOL] AdvReac Unknown NAUSEA & Verified 11/25/22 06:17 VOMITING Fish Containing Products AdvReac Stomach Verified 11/25/22 06:17 Upset Plan I have reviewed the history and physical and performed a pertinent physical examination on my patient. No changes have occurred unless specified. Time Spent With Patient Time: Total time managing care of this patient today ____ minutes.
--- NOTE | 2022-12-07 07:00 | HO.ECTPROC ---
ECT Procedure Note Diagnosis/Treatment Date of Service: 12/07/22 Diagnosis: Schizoaffective Disorder Previous ECT Date: 11/25/22 Treatment: Maintenance Interval Clinical Notes: The patient reported feeling a little better, still self-harming at times but less dysphoric. Affect looks brighter. Time: Total time managing care of this patient today __30__ minutes. ECT Settings Device: THYMATRON DGx Electrode Placement: Bitemporal Program/Pulse Width: 0.50 Energy Percent: 100 Seizure Duration By EEG (in seconds): 27 By Motor Observation (in seconds): 0 Medications Administration General Anesthetic: Etomidate (14) Muscle Relaxant: Succinylcholine (100) Ancillary Medications Analgesics: Torodol - Pre ECT Anti-emetics: Zofran - Pre ECT Miscillaneous Medications: Propofol Airway Management Airway Management: Bag Mask Ventilation Treatment Recommendations No Changes Recommended: No change Pt Tolerated Procedure w/o Issue: Yes
--- NOTE | 2022-12-07 08:11 | PC.NURSE ---
Port a cath de-accessed by Renu Alfaro RN. Flushed with heparin per protocol. Order in chart. Area WNL.
== END 2022-12-07 08:53 | disposition home or self-care (01) ==
PROVIDERS: PCP Pediatrics; Visit Provider Psychiatry & Neurology Psychiatry
PROC: (CPT 90870; principal; 2022-12-07 07:30)
DX: F33.2 Major depressive disorder, recurrent severe without psychotic features (principal); F43.12 Post-traumatic stress disorder, chronic; F60.3 Borderline personality disorder; J44.9 Chronic obstructive pulmonary disease, unspecified; Z91.52 Personal history of nonsuicidal self-harm; R45.851 Suicidal ideations; Z79.51 Long term (current) use of inhaled steroids; Z79.899 Other long term (current) drug therapy; Z88.8 Allergy status to other drugs, medicaments and biological substances; F17.210 Nicotine dependence, cigarettes, uncomplicated; F12.90 Cannabis use, unspecified, uncomplicated
CPT/HCPCS: 81025; 90870; J0330; J1642; J1885; J2405

== ENCOUNTER 2022-12-25 15:33 | Emergency (ER) | payer OTHER, SELFPAY ==
[2022-12-25 15:37] VITALS: BP 119/73; PULSE 82; RESP 18; TEMP 36.6; O2SAT 98; BMI 41.4
--- NOTE | 2022-12-25 15:38 | ED.PSYCH ---
HPI - Psych General Chief Complaint: Psychiatric Symptoms <JUANITO Saini - Last Filed: 12/25/22 15:42> Stated Complaint: crisis <JUANITO Saini Last Filed: 12/25/22 15:42> Time Seen by Provider: 12/25/22 15:52 <JUANITO Saini Last Filed: 12/25/22 15:42> Source: patient <JUANITO Cuevas - Last Filed: 12/25/22 19:11> Mode of arrival: ambulatory <JUANITO Cuevas Last Filed: 12/25/22 19:11> Limitations: no limitations <JUANITO Cuevas Last Filed: 12/25/22 19:11> History of Present Illness HPI Narrative: This is a 37-year-old female past medical history significant for schizoaffective disorder depressive type, borderline personality disorder,? PTSD, self-inflicted injuries presenting to the emergency department?with complaints of suicidal ideation with plan to cut herself she has been feeling this way for the past month worsening over the past few days. She reports increasing life stressors and she states that her sisters anniversary is coming up next month which is very hard for her. She has been cutting with glass. She denies homicidal ideation. Denies drugs, alcohol and tobacco. No medical complaints at this time. As eyes obtaining a history, patient was starting to cut herself with glass, glass was removed by staff members in the behavioral pod <JUANITO Cuevas Last Filed: 12/25/22 19:11> Related Data Home Medications: Home Medications Medication Instructions Recorded Confirmed acetaminophen 500 mg tablet 1 tab PO Q6H PRN pain 08/14/22 12/25/22 albuterol sulfate 90 mcg/actuation 2 puff inhalation BID PRN Wheezing 08/14/22 12/25/22 aerosol inhaler (ProAir HFA) diphenhydramine HCl 50 mg capsule 2 cap PO BEDTIME 08/14/22 12/25/22 (Banophen) haloperidol 5 mg tablet 1 tab PO TID PRN Agitation 08/14/22 12/25/22 hydroxyzine pamoate 50 mg capsule 1 cap PO BID PRN Anxiety 08/14/22 12/25/22 nicotine (polacrilex) 2 mg gum 2 mg buccal Q2H PRN Smoking 08/14/22 12/25/22 Cessation omeprazole 20 mg tablet,delayed 20 mg PO DAILY 08/14/22 12/25/22 release zolpidem 10 mg tablet 1 tab PO BEDTIME 08/14/22 12/25/22 cetirizine 10 mg tablet 1 tab PO DAILY 10/07/22 12/25/22 fluticasone propionate 230 2 puff inhalation BID 10/07/22 12/25/22 mcg-salmeterol 21 mcg/actuation HFA inhaler (Advair HFA) benztropine 0.5 mg tablet 1 tab PO BID 10/26/22 12/25/22 clonidine HCl 0.1 mg tablet 1 tab PO TID 10/26/22 12/25/22 duloxetine 60 mg capsule,delayed 1 cap PO DAILY 10/26/22 12/25/22 release ferrous sulfate 325 mg (65 mg 1 tab PO DAILY 10/26/22 12/25/22 iron) tablet,delayed release haloperidol decanoate 100 mg/mL 100 mg IM Q4W 10/26/22 12/25/22 intramuscular solution lithium carbonate 300 mg tablet 300 mg PO DAILY@1700 10/26/22 12/25/22 prazosin 1 mg capsule 1 mg PO BEDTIME 12/25/22 12/25/22 trazodone 100 mg tablet 200 mg PO BEDTIME PRN Insomnia 12/25/22 12/25/22 Previous Rx's Medication Instructions Recorded docusate sodium 100 mg capsule 100 mg PO BID 30 days #60 caps 09/01/22 <JUANITO Saini - Last Filed: 12/25/22 15:42> Allergies/Adverse Reactions: Allergies Allergy/AdvReac Type Severity Reaction Status Date / Time carbamazepine [From TEGRETOL] AdvReac Unknown NAUSEA & Verified 12/25/22 15:41 VOMITING Fish Containing Products AdvReac Stomach Verified 12/25/22 15:41 Upset <JUANITO Saini - Last Filed: 12/25/22 15:42> Review of Systems Review of Systems: Constitutional : No Weight loss, No Fever, No Chills, No Fatigue, No Malaise ENT/Mouth : No sore throat, No Rhinorrhea Eyes: No Eye Pain, No Swelling, No Redness Cardiovascular : No Chest Pain, No SOB, No Dyspnea on Exertion, No Orthopnea, No Edema, No Palpitations Respiratory : No Cough, No Sputum, No Wheezing Gastrointestinal : No Nausea, No Vomiting, No Diarrhea, No Constipation, No abdominal Pain, No Hematochezia, No Melena Genitourinary : No Dysuria, No Urinary Frequency, No Hematuria, Musculoskeletal : No joint pain, No Myalgias, No Joint Swelling Skin : No Skin Lesions, No rash Neuro : No Weakness, No Numbness, No Dizziness, No Headache Psych : + Anxiety/Panic, + Depression, + SI, No HI <JUANITO Cuevas - Last Filed: 12/25/22 19:11> Yes all other systems are reviewed and are negative <JUANITO Cuevas - Last Filed: 12/25/22 19:11> [facility] Past Medical History Attestation statement: The following information was validated with the patient. <JUANITO Cuevas - Last Filed: 12/25/22 19:11> Source: old records reviewed and nursing notes reviewed <JUANITO Cuevas - Last Filed: 12/25/22 19:11> Medical History: Medical History Acute post-traumatic stress disorder Adjustment disorder Anxiety Asthma Borderline personality disorder Chronic post-traumatic stress disorder (PTSD) COPD (chronic obstructive pulmonary disease) Depression GERD (gastroesophageal reflux disease) History of electroconvulsive therapy Increased BMI Injury, self-inflicted Intentional self-harm PTSD (post-traumatic stress disorder) Recurrent major depression-severe Schizoaffective disorder Self-harming behavior Suicidal ideation Suicidal ideation <JUANITO Saini - Last Filed: 12/25/22 15:42> Family History Family History: Family History Mother Brain cancer Other No family history of cardiac disease <JUANITO Saini - Last Filed: 12/25/22 15:42> Social History Social History: Social History Household Members: Other Household Members Other:: [facility] Housing[facility] Housing Other:: [facility] Do you presently have visiting nurse or other home services: No Alcohol intake: never Patient Tobacco Use Status: Current everyday Tobacco user Tobacco use type: Cigarette Cigarette Packs Per Day: 0.5 Cigarettes Per Day: 10.0 Years Smoked: 20 e-Cigarette/Vaping Use: Never Used Second Hand Smoke Exposure: Yes Substance Use Type: Marijuana Advance Directives: No Advance Directives Information Provided: Yes Guardian: No service: No Sexual orientation: Straight/Heterosexual <JUANITO Saini - Last Filed: 12/25/22 15:42> Physical Exam Vital Signs: Vital Signs: Last Vital Signs Temp 98.1 F 12/26/22 06:00 Pulse 87 12/26/22 06:00 Resp 12/26/22 06:00 BP 110/85 12/26/22 06:00 Pulse Ox 97 12/26/22 06:00 O2 Del Method Room Air 12/26/22 06:00 BMI result Body Mass Index 41.4 <JUANITO Saini - Last Filed: 12/25/22 15:42> Vital Signs: Last Vital Signs Temp 98.1 F 12/26/22 06:00 Pulse 87 12/26/22 06:00 Resp 12/26/22 06:00 BP 110/85 12/26/22 06:00 Pulse Ox 97 12/26/22 06:00 O2 Del Method Room Air 12/26/22 06:00 BMI result Body Mass Index 41.4 vss <JUANITO Cuevas - Last Filed: 12/25/22 19:11> Vital Signs: Last Vital Signs Temp 98.1 F 12/26/22 06:00 Pulse 87 12/26/22 06:00 Resp 12/26/22 06:00 BP 110/85 12/26/22 06:00 Pulse Ox 97 12/26/22 06:00 O2 Del Method Room Air 12/26/22 06:00 BMI result Body Mass Index 41.4 <Jovan Chau MD - Last Filed: 12/26/22 11:23> Appearance: Alert.? Oriented X3.? No acute distress Head:? Normocephalic, atraumatic, no step-offs or deformities Eyes: Pupils equal, round and reactive to light.? Neck: Normal inspection.? Neck supple.? CVS: Normal heart rate and rhythm.? Pulses normal.? Respiratory: No respiratory distress.? Breath sounds normal.? Abdomen: Soft and nontender.? Skin: Skin warm and dry.? Normal skin color.? Normal skin turgor.? superficial abrasions over bilateral upper extremities, + active bleeding from RUE Extremities: No lower extremity edema.? No calf ttp.? 5/5 strength to bilateral upper and lower extremities Neuro: Oriented X 3.? No motor deficit.? No sensory deficit. CN 2-12 intact <JUANITO Cuevas - Last Filed: 12/25/22 19:11> Course Course Course Narrative: RME: 37-year-old female w/past medical history significant for schizoaffective disorder depressive type, borderline personality disorder,? PTSD, self-inflicted injuries presenting to the ED c/o I'm going to kill myslef, feeling suicidal, admits has been self cutting and stabbed herself in the forehead with fork last night. Also reports has been starving herself. denies HI, etoh or illicit drugs other than THC Labs, UA, CH[facility]LER, CARE team consult ordered Full HPI, ROS and PE to be performed by primary ED provider. <JUANITO Saini - Last Filed: 12/25/22 15:42> Reevaluation(s) Reevaluation #1: CBC within normal limits. Chemistry with no acute electrolyte abnormalities requiring intervention. Patient is positive for fentanyl and marijuana. Salicylates acetaminophen negative. Ethanol negative. <JUANITO Cuevas - Last Filed: 12/25/22 19:11> Time: 19:06 <JUANITO Cuevas - Last Filed: 12/25/22 19:11> Reevaluation #2: Patient has been evaluated by care tPA of and myself patient currently has no SI or HI, ready to be discharged home stated that she feels safe to be discharged. <Jovan Chau MD - Last Filed: 12/26/22 11:23> Time: 11:23 <Jovan Chau MD - Last Filed: 12/26/22 11:23> Medications Administered Generic Name Dose Route Start Last Admin Trade Name Freq PRN Reason Stop Dose Admin Benztropine Mesylate 0.5 mg 12/25/22 21:00 12/26/22 09:33 Benztropine Mesylate 0.5 Mg Tablet PO 0.5 mg BID SULEIMAN Administration Clonidine HCl 0.1 mg 12/25/22 21:00 12/26/22 09:33 Clonidine Hcl 0.1 Mg Tablet PO 0.1 mg TID SULEIMAN Administration Protocol Diphenhydramine HCl 100 mg 12/25/22 21:00 12/25/22 20:30 Diphenhydramine Hcl 25 Mg Capsule PO 100 mg BEDTIME SULEIMAN Administration Docusate Sodium 100 mg 12/25/22 21:00 12/26/22 09:33 Docusate Sodium 100 Mg Capsule PO 100 mg BID SULEIMAN Administration Duloxetine HCl 60 mg 12/26/22 09:00 12/26/22 09:33 Duloxetine Hcl 60 Mg Capsule. PO 60 mg DAILY SULEIMAN Administration Ferrous Sulfate 324 mg 12/26/22 09:00 12/26/22 09:33 Ferrous Sulfate 324 Mg Tablet. PO 324 mg DAILY SULEIMAN Administration Fluticasone/Vilanterol 1 puff 12/26/22 08:00 12/26/22 09:07 Fluticasone/Vilanterol 200/25 Blst.W.Dev INHALE Not Given RDAILY SULEIMAN Haloperidol 5 mg 12/25/22 19:46 12/26/22 04:45 Haloperidol 5 Mg Tablet PO 5 mg TID PRN Administration Agitation Hydroxyzine HCl 50 mg 12/25/22 19:46 12/26/22 04:45 Hydroxyzine Hcl 50 Mg Tablet PO 50 mg BID PRN Administration Anxiety Loratadine 10 mg 12/26/22 09:00 12/26/22 09:34 Loratadine 10 Mg Tablet PO 10 mg DAILY SULEIMAN Administration Omeprazole 20 mg 12/26/22 06:30 12/26/22 04:45 Omeprazole 20 Mg Capsule. PO 20 mg DAILY@0630 SULEIMAN Administration Prazosin HCl 1 mg 12/25/22 21:00 12/25/22 20:31 Prazosin Hcl 1 Mg Capsule PO 1 mg BEDTIME SULEIMAN Administration Protocol Trazodone HCl 200 mg 12/25/22 19:46 12/25/22 20:31 Trazodone Hcl 100 Mg Tablet PO 200 mg BEDTIME PRN Administration Insomnia Zolpidem Tartrate 5 mg 12/25/22 21:00 12/25/22 20:31 Zolpidem Tartrate 5 Mg Tablet PO 5 mg BEDTIME SULEIMAN Administration Discontinued Medications Generic Name Dose Route Start Last Admin Trade Name Leno PRN Reason Stop Dose Admin Haloperidol 5 mg 12/25/22 16:50 12/25/22 16:55 Haloperidol 5 Mg Tablet PO 12/25/22 16:51 5 mg ONCE ONE Administration Lorazepam 2 mg 12/25/22 16:50 12/25/22 16:55 Lorazepam 1 Mg Tablet PO 12/25/22 16:51 2 mg ONCE ONE Administration Lorazepam 1 mg 12/26/22 04:44 12/26/22 04:46 Lorazepam 1 Mg Tablet PO 12/26/22 04:45 1 mg ONCE ONE Administration Olanzapine 10 mg 12/26/22 09:25 12/26/22 09:34 Olanzapine 10 Mg Vial IM 12/26/22 09:26 10 mg ONCE ONE Administration <JUANITO Saini - Last Filed: 12/25/22 15:42> Medications Administered Generic Name Dose Route Start Last Admin Trade Name Leno PRN Reason Stop Dose Admin Benztropine Mesylate 0.5 mg 12/25/22 21:00 12/26/22 09:33 Benztropine Mesylate 0.5 Mg Tablet PO 0.5 mg BID SULEIMAN Administration Clonidine HCl 0.1 mg 12/25/22 21:00 12/26/22 09:33 Clonidine Hcl 0.1 Mg Tablet PO 0.1 mg TID SULEIMAN Administration Protocol Diphenhydramine HCl 100 mg 12/25/22 21:00 12/25/22 20:30 Diphenhydramine Hcl 25 Mg Capsule PO 100 mg BEDTIME SULEIMAN Administration Docusate Sodium 100 mg 12/25/22 21:00 12/26/22 09:33 Docusate Sodium 100 Mg Capsule PO 100 mg BID SULEIMAN Administration Duloxetine HCl 60 mg 12/26/22 09:00 12/26/22 09:33 Duloxetine Hcl 60 Mg Capsule. PO 60 mg DAILY SULEIMAN Administration Ferrous Sulfate 324 mg 12/26/22 09:00 12/26/22 09:33 Ferrous Sulfate 324 Mg Tablet. PO 324 mg DAILY SULEIMAN Administration Fluticasone/Vilanterol 1 puff 12/26/22 08:00 12/26/22 09:07 Fluticasone/Vilanterol 200/25 Blst.W.Dev INHALE Not Given RDAILY SULEIMAN Haloperidol 5 mg 12/25/22 19:46 12/26/22 04:45 Haloperidol 5 Mg Tablet PO 5 mg TID PRN Administration Agitation Hydroxyzine HCl 50 mg 12/25/22 19:46 12/26/22 04:45 Hydroxyzine Hcl 50 Mg Tablet PO 50 mg BID PRN Administration Anxiety Loratadine 10 mg 12/26/22 09:00 12/26/22 09:34 Loratadine 10 Mg Tablet PO 10 mg DAILY SULEIMAN Administration Omeprazole 20 mg 12/26/22 06:30 12/26/22 04:45 Omeprazole 20 Mg Capsule.Dr PO 20 mg DAILY@0630 SULEIMAN Administration Prazosin HCl 1 mg 12/25/22 21:00 12/25/22 20:31 Prazosin Hcl 1 Mg Capsule PO 1 mg BEDTIME SULEIMAN Administration Protocol Trazodone HCl 200 mg 12/25/22 19:46 12/25/22 20:31 Trazodone Hcl 100 Mg Tablet PO 200 mg BEDTIME PRN Administration Insomnia Zolpidem Tartrate 5 mg 12/25/22 21:00 12/25/22 20:31 Zolpidem Tartrate 5 Mg Tablet PO 5 mg BEDTIME SULEIMAN Administration Discontinued Medications Generic Name Dose Route Start Last Admin Trade Name Freq PRN Reason Stop Dose Admin Haloperidol 5 mg 12/25/22 16:50 12/25/22 16:55 Haloperidol 5 Mg Tablet PO 12/25/22 16:51 5 mg ONCE ONE Administration Lorazepam 2 mg 12/25/22 16:50 12/25/22 16:55 Lorazepam 1 Mg Tablet PO 12/25/22 16:51 2 mg ONCE ONE Administration Lorazepam 1 mg 12/26/22 04:44 12/26/22 04:46 Lorazepam 1 Mg Tablet PO 12/26/22 04:45 1 mg ONCE ONE Administration Olanzapine 10 mg 12/26/22 09:25 12/26/22 09:34 Olanzapine 10 Mg Vial IM 12/26/22 09:26 10 mg ONCE ONE Administration <JUANITO Cuevas - Last Filed: 12/25/22 19:11> Medications Administered Generic Name Dose Route Start Last Admin Trade Name Freq PRN Reason Stop Dose Admin Benztropine Mesylate 0.5 mg 12/25/22 21:00 12/26/22 09:33 Benztropine Mesylate 0.5 Mg Tablet PO 0.5 mg BID SULEIMAN Administration Clonidine HCl 0.1 mg 12/25/22 21:00 12/26/22 09:33 Clonidine Hcl 0.1 Mg Tablet PO 0.1 mg TID SULEIMAN Administration Protocol Diphenhydramine HCl 100 mg 12/25/22 21:00 12/25/22 20:30 Diphenhydramine Hcl 25 Mg Capsule PO 100 mg BEDTIME SULEIMAN Administration Docusate Sodium 100 mg 12/25/22 21:00 12/26/22 09:33 Docusate Sodium 100 Mg Capsule PO 100 mg BID SULEIMAN Administration Duloxetine HCl 60 mg 12/26/22 09:00 12/26/22 09:33 Duloxetine Hcl 60 Mg Capsule. PO 60 mg DAILY SULEIMAN Administration Ferrous Sulfate 324 mg 12/26/22 09:00 12/26/22 09:33 Ferrous Sulfate 324 Mg Tablet. PO 324 mg DAILY SULEIMAN Administration Fluticasone/Vilanterol 1 puff 12/26/22 08:00 12/26/22 09:07 Fluticasone/Vilanterol 200/25 Blst.W.Dev INHALE Not Given RDAILY SULEIMAN Haloperidol 5 mg 12/25/22 19:46 12/26/22 04:45 Haloperidol 5 Mg Tablet PO 5 mg TID PRN Administration Agitation Hydroxyzine HCl 50 mg 12/25/22 19:46 12/26/22 04:45 Hydroxyzine Hcl 50 Mg Tablet PO 50 mg BID PRN Administration Anxiety Loratadine 10 mg 12/26/22 09:00 12/26/22 09:34 Loratadine 10 Mg Tablet PO 10 mg DAILY SULEIMAN Administration Omeprazole 20 mg 12/26/22 06:30 12/26/22 04:45 Omeprazole 20 Mg Capsule. PO 20 mg DAILY@0630 SULEIMAN Administration Prazosin HCl 1 mg 12/25/22 21:00 12/25/22 20:31 Prazosin Hcl 1 Mg Capsule PO 1 mg BEDTIME SULEIMAN Administration Protocol Trazodone HCl 200 mg 12/25/22 19:46 12/25/22 20:31 Trazodone Hcl 100 Mg Tablet PO 200 mg BEDTIME PRN Administration Insomnia Zolpidem Tartrate 5 mg 12/25/22 21:00 12/25/22 20:31 Zolpidem Tartrate 5 Mg Tablet PO 5 mg BEDTIME SULEIMAN Administration Discontinued Medications Generic Name Dose Route Start Last Admin Trade Name Leno GROSSN Reason Stop Dose Admin Haloperidol 5 mg 12/25/22 16:50 12/25/22 16:55 Haloperidol 5 Mg Tablet PO 12/25/22 16:51 5 mg ONCE ONE Administration Lorazepam 2 mg 12/25/22 16:50 12/25/22 16:55 Lorazepam 1 Mg Tablet PO 12/25/22 16:51 2 mg ONCE ONE Administration Lorazepam 1 mg 12/26/22 04:44 12/26/22 04:46 Lorazepam 1 Mg Tablet PO 12/26/22 04:45 1 mg ONCE ONE Administration Olanzapine 10 mg 12/26/22 09:25 12/26/22 09:34 Olanzapine 10 Mg Vial IM 12/26/22 09:26 10 mg ONCE ONE Administration <Jovan Chau MD - Last Filed: 12/26/22 11:23> Medical Decision Making Medical Decision Making [facility] Narrative: 1610 37-year-old female presents with presenting with depression, SI w/ plan PE remarkable for superficial abrasions over bilateral upper extremities, + active bleeding. Likely PTSD, suicidal ideation, depression, BPD, schizoaffective disorder depressive type, self-mutilation.? Less likely metabolic disturbances, electrolyte imbalances Plan at this time is medical clearance and evaluation by the behavioral health team. Requesting medications to help her calm down <JUANITO Cuevas - Last Filed: 12/25/22 19:11> Differential Diagnosis Differential Diagnoses: The differential diagnosis associated with the presentation includes <JUANITO Cuevas - Last Filed: 12/25/22 19:11> Likely PTSD, suicidal ideation, depression, BPD, schizoaffective disorder depressive type, self-mutilation.? Less likely metabolic disturbances, electrolyte imbalances <JUANITO Cuevas Last Filed: 12/25/22 19:11> Admission/Observation Consideration of admission/observation: Escalation of care including admission/observation considered <JUANITO Cuevas Last Filed: 12/25/22 19:11> Lab Data Result Diagrams: 12/25/22 18:05 12/25/22 18:05 <JUANITO Saini - Last Filed: 12/25/22 15:42> Labs: Lab Results 12/25/22 12/25/22 12/25/22 Range/Units 16:53 18:05 18:05 WBC 7.4 (4.8-10.8) X10*3/uL RBC 4.37 (4.20-5.50) X10*6/uL Hgb 12.7 (12.0-16.0) g/dl Hct 38.2 (37.0-47.0) % MCV 87.4 (80.0-98.0) fL MCH 29.1 (27.0-33.0) pg MCHC 33.2 (31.0-35.0) g/dl RDW 14.0 (11.0-16.0) % Plt Count 221 (160-400) X10*3/uL MPV 10.6 (9.4-12.3) fL Immature Gran % (Auto) 0.1 (0.0-0.4) % Neut % (Auto) 62.4 (45-73) % Lymph % (Auto) 31.0 (20-40) % [place] % (Auto) 4.9 (2-11) % Eos % (Auto) 1.1 (0-4) % Baso % (Auto) 0.5 (0-2) % Lymph # (Auto) 2.3 (1.2-4.9) X10*3/uL [place] # (Auto) 0.4 (0.1-1.2) X10*3/uL Eos # (Auto) 0.1 (0.0-0.4) X10*3/uL Baso # (Auto) 0.0 (0.0-0.2) X10*3/uL Abs Immat Gran (auto) 0.01 (0.00-0.03) X10*3/uL Absolute Neuts (auto) 4.6 (2.0-8.3) x10*3/uL Absolute Nucleated RBC 0.000 (0.0-0.012) X10*3/uL Nucleated RBC % (auto) 0.0 (0.0-0.2) /100WBC Sodium 139 (135-145) mmol/L Potassium 3.8 (3.3-5.1) mmol/L Chloride 109 H (96-108) mmol/L Carbon Dioxide 23 (22-29) mmol/L Anion Gap 11 L (12-20) BUN 9 (9-16) mg/dL Creatinine 0.72 (0.5-1.4) mg/dL Estim Creat Clear Calc 107.6 Estimated GFR > 60 Random Glucose 91 (60-115) mg/dL Calcium 9.2 (8.4-10.2) mg/dL Total Bilirubin 0.3 (0.0-1.0) mg/dL Direct Bilirubin 0.1 (0.0-0.5) mg/dL AST 10 (5-31) U/L ALT 7 (0-31) U/L Alkaline Phosphatase 64 (39-117) U/L Total Protein 6.3 L (6.5-8.0) g/dL Albumin 3.9 (3.5-5.0) g/dL Salicylates < 5.0 L (15-30) mg/dL Urine Opiates Screen Not Detected (Not Detect) Urine Fentanyl Screen POSITIVE H (Not Detect) Acetaminophen < 17 (<30) mcg/mL Ur Barbiturates Screen Not Detected (Not Detect) Ur Phencyclidine Scrn Not Detected (Not Detect) Ur Amphetamines Screen Not Detected (Not Detect) U Benzodiazepines Scrn Not Detected (Not Detect) Urine Cocaine Screen Not Detected (Not Detect) U Marijuana (THC) Screen POSITIVE H (Not Detect) Ethyl Alcohol < 10 mg/dL COVID-19 (RAFAL) (Negative) COVID-19 Clin Com 12/25/22 Range/Units 18:05 WBC (4.8-10.8) X10*3/uL RBC (4.20-5.50) X10*6/uL Hgb (12.0-16.0) g/dl Hct (37.0-47.0) % MCV (80.0-98.0) fL MCH (27.0-33.0) pg MCHC (31.0-35.0) g/dl RDW (11.0-16.0) % Plt Count (160-400) X10*3/uL MPV (9.4-12.3) fL Immature Gran % (Auto) (0.0-0.4) % Neut % (Auto) (45-73) % Lymph % (Auto) (20-40) % [place] % (Auto) (2-11) % Eos % (Auto) (0-4) % Baso % (Auto) (0-2) % Lymph # (Auto) (1.2-4.9) X10*3/uL [place] # (Auto) (0.1-1.2) X10*3/uL Eos # (Auto) (0.0-0.4) X10*3/uL Baso # (Auto) (0.0-0.2) X10*3/uL Abs Immat Gran (auto) (0.00-0.03) X10*3/uL Absolute Neuts (auto) (2.0-8.3) x10*3/uL Absolute Nucleated RBC (0.0-0.012) X10*3/uL Nucleated RBC % (auto) (0.0-0.2) /100WBC Sodium (135-145) mmol/L Potassium (3.3-5.1) mmol/L Chloride (96-108) mmol/L Carbon Dioxide (22-29) mmol/L Anion Gap (12-20) BUN (9-16) mg/dL Creatinine (0.5-1.4) mg/dL Estim Creat Clear Calc Estimated GFR Random Glucose (60-115) mg/dL Calcium (8.4-10.2) mg/dL Total Bilirubin (0.0-1.0) mg/dL Direct Bilirubin (0.0-0.5) mg/dL AST (5-31) U/L ALT (0-31) U/L Alkaline Phosphatase (39-117) U/L Total Protein (6.5-8.0) g/dL Albumin (3.5-5.0) g/dL Salicylates (15-30) mg/dL Urine Opiates Screen (Not Detect) Urine Fentanyl Screen (Not Detect) Acetaminophen (<30) mcg/mL Ur Barbiturates Screen (Not Detect) Ur Phencyclidine Scrn (Not Detect) Ur Amphetamines Screen (Not Detect) U Benzodiazepines Scrn (Not Detect) Urine Cocaine Screen (Not Detect) U Marijuana (THC) Screen (Not Detect) Ethyl Alcohol mg/dL COVID-19 (RAFAL) Negative (Negative) COVID-19 Clin Com See Note <JUANITO Saini - Last Filed: 12/25/22 15:42> Lab Results 12/25/22 12/25/22 12/25/22 Range/Units 16:53 18:05 18:05 WBC 7.4 (4.8-10.8) X10*3/uL RBC 4.37 (4.20-5.50) X10*6/uL Hgb 12.7 (12.0-16.0) g/dl Hct 38.2 (37.0-47.0) % MCV 87.4 (80.0-98.0) fL MCH 29.1 (27.0-33.0) pg MCHC 33.2 (31.0-35.0) g/dl RDW 14.0 (11.0-16.0) % Plt Count 221 (160-400) X10*3/uL MPV 10.6 (9.4-12.3) fL Immature Gran % (Auto) 0.1 (0.0-0.4) % Neut % (Auto) 62.4 (45-73) % Lymph % (Auto) 31.0 (20-40) % [place] % (Auto) 4.9 (2-11) % Eos % (Auto) 1.1 (0-4) % Baso % (Auto) 0.5 (0-2) % Lymph # (Auto) 2.3 (1.2-4.9) X10*3/uL [place] # (Auto) 0.4 (0.1-1.2) X10*3/uL Eos # (Auto) 0.1 (0.0-0.4) X10*3/uL Baso # (Auto) 0.0 (0.0-0.2) X10*3/uL Abs Immat Gran (auto) 0.01 (0.00-0.03) X10*3/uL Absolute Neuts (auto) 4.6 (2.0-8.3) x10*3/uL Absolute Nucleated RBC 0.000 (0.0-0.012) X10*3/uL Nucleated RBC % (auto) 0.0 (0.0-0.2) /100WBC Sodium 139 (135-145) mmol/L Potassium 3.8 (3.3-5.1) mmol/L Chloride 109 H (96-108) mmol/L Carbon Dioxide 23 (22-29) mmol/L Anion Gap 11 L (12-20) BUN 9 (9-16) mg/dL Creatinine 0.72 (0.5-1.4) mg/dL Estim Creat Clear Calc 107.6 Estimated GFR > 60 Random Glucose 91 (60-115) mg/dL Calcium 9.2 (8.4-10.2) mg/dL Total Bilirubin 0.3 (0.0-1.0) mg/dL Direct Bilirubin 0.1 (0.0-0.5) mg/dL AST 10 (5-31) U/L ALT 7 (0-31) U/L Alkaline Phosphatase 64 (39-117) U/L Total Protein 6.3 L (6.5-8.0) g/dL Albumin 3.9 (3.5-5.0) g/dL Salicylates < 5.0 L (15-30) mg/dL Urine Opiates Screen Not Detected (Not Detect) Urine Fentanyl Screen POSITIVE H (Not Detect) Acetaminophen < 17 (<30) mcg/mL Ur Barbiturates Screen Not Detected (Not Detect) Ur Phencyclidine Scrn Not Detected (Not Detect) Ur Amphetamines Screen Not Detected (Not Detect) U Benzodiazepines Scrn Not Detected (Not Detect) Urine Cocaine Screen Not Detected (Not Detect) U Marijuana (THC) Screen POSITIVE H (Not Detect) Ethyl Alcohol < 10 mg/dL COVID-19 (RAFAL) (Negative) COVID-19 Clin Com 12/25/22 Range/Units 18:05 WBC (4.8-10.8) X10*3/uL RBC (4.20-5.50) X10*6/uL Hgb (12.0-16.0) g/dl Hct (37.0-47.0) % MCV (80.0-98.0) fL MCH (27.0-33.0) pg MCHC (31.0-35.0) g/dl RDW (11.0-16.0) % Plt Count (160-400) X10*3/uL MPV (9.4-12.3) fL Immature Gran % (Auto) (0.0-0.4) % Neut % (Auto) (45-73) % Lymph % (Auto) (20-40) % [place] % (Auto) (2-11) % Eos % (Auto) (0-4) % Baso % (Auto) (0-2) % Lymph # (Auto) (1.2-4.9) X10*3/uL [place] # (Auto) (0.1-1.2) X10*3/uL Eos # (Auto) (0.0-0.4) X10*3/uL Baso # (Auto) (0.0-0.2) X10*3/uL Abs Immat Gran (auto) (0.00-0.03) X10*3/uL Absolute Neuts (auto) (2.0-8.3) x10*3/uL Absolute Nucleated RBC (0.0-0.012) X10*3/uL Nucleated RBC % (auto) (0.0-0.2) /100WBC Sodium (135-145) mmol/L Potassium (3.3-5.1) mmol/L Chloride (96-108) mmol/L Carbon Dioxide (22-29) mmol/L Anion Gap (12-20) BUN (9-16) mg/dL Creatinine (0.5-1.4) mg/dL Estim Creat Clear Calc Estimated GFR Random Glucose (60-115) mg/dL Calcium (8.4-10.2) mg/dL Total Bilirubin (0.0-1.0) mg/dL Direct Bilirubin (0.0-0.5) mg/dL AST (5-31) U/L ALT (0-31) U/L Alkaline Phosphatase (39-117) U/L Total Protein (6.5-8.0) g/dL Albumin (3.5-5.0) g/dL Salicylates (15-30) mg/dL Urine Opiates Screen (Not Detect) Urine Fentanyl Screen (Not Detect) Acetaminophen (<30) mcg/mL Ur Barbiturates Screen (Not Detect) Ur Phencyclidine Scrn (Not Detect) Ur Amphetamines Screen (Not Detect) U Benzodiazepines Scrn (Not Detect) Urine Cocaine Screen (Not Detect) U Marijuana (THC) Screen (Not Detect) Ethyl Alcohol mg/dL COVID-19 (RAFAL) Negative (Negative) COVID-19 Clin Com See Note <Susanita Mack, PA - Last Filed: 12/25/22 19:11> Lab Results 12/25/22 12/25/22 12/25/22 Range/Units 16:53 18:05 18:05 WBC 7.4 (4.8-10.8) X10*3/uL RBC 4.37 (4.20-5.50) X10*6/uL Hgb 12.7 (12.0-16.0) g/dl Hct 38.2 (37.0-47.0) % MCV 87.4 (80.0-98.0) fL MCH 29.1 (27.0-33.0) pg MCHC 33.2 (31.0-35.0) g/dl RDW 14.0 (11.0-16.0) % Plt Count 221 (160-400) X10*3/uL MPV 10.6 (9.4-12.3) fL Immature Gran % (Auto) 0.1 (0.0-0.4) % Neut % (Auto) 62.4 (45-73) % Lymph % (Auto) 31.0 (20-40) % [place] % (Auto) 4.9 (2-11) % Eos % (Auto) 1.1 (0-4) % Baso % (Auto) 0.5 (0-2) % Lymph # (Auto) 2.3 (1.2-4.9) X10*3/uL [place] # (Auto) 0.4 (0.1-1.2) X10*3/uL Eos # (Auto) 0.1 (0.0-0.4) X10*3/uL Baso # (Auto) 0.0 (0.0-0.2) X10*3/uL Abs Immat Gran (auto) 0.01 (0.00-0.03) X10*3/uL Absolute Neuts (auto) 4.6 (2.0-8.3) x10*3/uL Absolute Nucleated RBC 0.000 (0.0-0.012) X10*3/uL Nucleated RBC % (auto) 0.0 (0.0-0.2) /100WBC Sodium 139 (135-145) mmol/L Potassium 3.8 (3.3-5.1) mmol/L Chloride 109 H (96-108) mmol/L Carbon Dioxide 23 (22-29) mmol/L Anion Gap 11 L (12-20) BUN 9 (9-16) mg/dL Creatinine 0.72 (0.5-1.4) mg/dL Estim Creat Clear Calc 107.6 Estimated GFR > 60 Random Glucose 91 (60-115) mg/dL Calcium 9.2 (8.4-10.2) mg/dL Total Bilirubin 0.3 (0.0-1.0) mg/dL Direct Bilirubin 0.1 (0.0-0.5) mg/dL AST 10 (5-31) U/L ALT 7 (0-31) U/L Alkaline Phosphatase 64 (39-117) U/L Total Protein 6.3 L (6.5-8.0) g/dL Albumin 3.9 (3.5-5.0) g/dL Salicylates < 5.0 L (15-30) mg/dL Urine Opiates Screen Not Detected (Not Detect) Urine Fentanyl Screen POSITIVE H (Not Detect) Acetaminophen < 17 (<30) mcg/mL Ur Barbiturates Screen Not Detected (Not Detect) Ur Phencyclidine Scrn Not Detected (Not Detect) Ur Amphetamines Screen Not Detected (Not Detect) U Benzodiazepines Scrn Not Detected (Not Detect) Urine Cocaine Screen Not Detected (Not Detect) U Marijuana (THC) Screen POSITIVE H (Not Detect) Ethyl Alcohol < 10 mg/dL COVID-19 (RAFAL) (Negative) COVID-19 Clin Com 12/25/22 Range/Units 18:05 WBC (4.8-10.8) X10*3/uL RBC (4.20-5.50) X10*6/uL Hgb (12.0-16.0) g/dl Hct (37.0-47.0) % MCV (80.0-98.0) fL MCH (27.0-33.0) pg MCHC (31.0-35.0) g/dl RDW (11.0-16.0) % Plt Count (160-400) X10*3/uL MPV (9.4-12.3) fL Immature Gran % (Auto) (0.0-0.4) % Neut % (Auto) (45-73) % Lymph % (Auto) (20-40) % [place] % (Auto) (2-11) % Eos % (Auto) (0-4) % Baso % (Auto) (0-2) % Lymph # (Auto) (1.2-4.9) X10*3/uL [place] # (Auto) (0.1-1.2) X10*3/uL Eos # (Auto) (0.0-0.4) X10*3/uL Baso # (Auto) (0.0-0.2) X10*3/uL Abs Immat Gran (auto) (0.00-0.03) X10*3/uL Absolute Neuts (auto) (2.0-8.3) x10*3/uL Absolute Nucleated RBC (0.0-0.012) X10*3/uL Nucleated RBC % (auto) (0.0-0.2) /100WBC Sodium (135-145) mmol/L Potassium (3.3-5.1) mmol/L Chloride (96-108) mmol/L Carbon Dioxide (22-29) mmol/L Anion Gap (12-20) BUN (9-16) mg/dL Creatinine (0.5-1.4) mg/dL Estim Creat Clear Calc Estimated GFR Random Glucose (60-115) mg/dL Calcium (8.4-10.2) mg/dL Total Bilirubin (0.0-1.0) mg/dL Direct Bilirubin (0.0-0.5) mg/dL AST (5-31) U/L ALT (0-31) U/L Alkaline Phosphatase (39-117) U/L Total Protein (6.5-8.0) g/dL Albumin (3.5-5.0) g/dL Salicylates (15-30) mg/dL Urine Opiates Screen (Not Detect) Urine Fentanyl Screen (Not Detect) Acetaminophen (<30) mcg/mL Ur Barbiturates Screen (Not Detect) Ur Phencyclidine Scrn (Not Detect) Ur Amphetamines Screen (Not Detect) U Benzodiazepines Scrn (Not Detect) Urine Cocaine Screen (Not Detect) U Marijuana (THC) Screen (Not Detect) Ethyl Alcohol mg/dL COVID-19 (RAFAL) Negative (Negative) COVID-19 Clin Com See Note <Jovan Chau MD - Last Filed: 12/26/22 11:23> External Record Review External record reviewed: Inpatient record, Office record, Outpatient record, Prior outpatient labs, Prior outpatient radiology, Primary care record and Outside ED record <JUANITO Cuevas - Last Filed: 12/25/22 19:11> Core Measures AMI core measures followed: Yes <JUANITO Cuevas - Last Filed: 12/25/22 19:11> Measure exclusions: not indicated <JUANITO Cuevas - Last Filed: 12/25/22 19:11> Critical Care Time Critical Care Time Critical Care Time: No <JUANITO Cuevas - Last Filed: 12/25/22 19:11> Discharge Plan Discharge Clinical Impression: Borderline personality disorder <JUANITO Saini - Last Filed: 12/25/22 15:42> Patient Disposition: Home, Self-Care <JUANITO Saini - Last Filed: 12/25/22 15:42> Instructions: Borderline Personality Disorder (DC) <JUANITO Saini - Last Filed: 12/25/22 15:42> Additional Instructions: Take your medications as prescribed. If you were prescribed antibiotics today, it is important that you take your medication to their entirety, do not skip any doses, do not finish them early. Follow-up with your primary care provider this week. Return to the emergency department with new or worsening symptoms. Such as fevers, chills, chest pain, shortness of breath, nausea, vomiting, dizziness, headache, vision changes, lethargy In case of emergency call 911 <JUANITO Saini - Last Filed: 12/25/22 15:42> Prescriptions: No Action haloperidol 5 mg tablet 1 tab PO TID PRN (Reason: Agitation) diphenhydramine HCl [Banophen] 50 mg capsule 2 cap PO BEDTIME hydroxyzine pamoate 50 mg capsule 1 cap PO BID PRN (Reason: Anxiety) zolpidem 10 mg tablet 1 tab PO BEDTIME acetaminophen 500 mg tablet 1 tab PO Q6H PRN (Reason: pain) albuterol sulfate [ProAir HFA] 90 mcg/actuation HFA aerosol inhaler 2 puff inhalation BID PRN (Reason: Wheezing) nicotine (polacrilex) 2 mg Gum 2 mg BUCCAL Q2H PRN (Reason: Smoking Cessation) omeprazole 20 mg Tablet,Delayed Release (Dr/Ec) 20 mg PO DAILY lithium carbonate 300 mg tablet 300 mg PO DAILY@1700 clonidine HCl 0.1 mg tablet 1 tab PO TID benztropine 0.5 mg tablet 1 tab PO BID haloperidol decanoate 100 mg/mL solution 100 mg IM Q4W ferrous sulfate 325 mg (65 mg iron) tablet,delayed release (DR/EC) 1 tab PO DAILY duloxetine 60 mg capsule,delayed release(DR/EC) 1 cap PO DAILY docusate sodium 100 mg Capsule 100 mg PO BID 30 Days Qty: 60 0RF Rx Instructions: HOLD FOR LOOSE STOOL cetirizine 10 mg tablet 1 tab PO DAILY fluticasone propion-salmeterol [Advair HFA] 230-21 mcg/actuation HFA aerosol inhaler 2 puff INHALATION BID prazosin 1 mg capsule 1 mg PO BEDTIME trazodone 100 mg tablet 200 mg PO BEDTIME PRN (Reason: Insomnia) <JUANITO Saini - Last Filed: 12/25/22 15:42> Interventions: [place]-Suicide Risk Severity Scale Last Done: 12/26/22 05:59 <JUANITO Saini - Last Filed: 12/25/22 15:42>
[2022-12-25] MEDS: LORazepam 1 MG TABLET 2 MG PO (16:55)
[2022-12-25] MEDS: HaloperidoL 5 MG TABLET PO ×2 (16:55→20:31)
--- NOTE | 2022-12-25 17:00 | PC.NURSE ---
pt changed into hospital attire, belongings secured. pt walking around unit banging her head on the shepherd. pod staff stopped pt from banging head, security notified to assist. pt calmed down then started banging head again, and started cutting wrists with a piece of glass. pod staff sitting with pt 1:1. meds given as ordered.
[2022-12-25 17:26] LABS: Amphetamine Screen Urine Not Detected (Not Detect); Barbiturates, Urine Not Detected (Not Detect); Benzodiazepines Screen Urine Not Detected (Not Detect); Cannabinoid Screen Urine POSITIVE (Not Detect); Cocaine Screen Urine Not Detected (Not Detect); Fentanyl, urine POSITIVE (Not Detect); Opiate Screen Urine Not Detected (Not Detect); Phencyclidine Screen Urine Not Detected (Not Detect)
[2022-12-25 18:09] LABS: MANUAL DIFF FLAG NO
[2022-12-25 18:10] LABS: Basophils Percent Auto 0.5 % (0-2); Eosinophils Absolute Auto 0.1 X10*3/uL (0.0-0.4); Eosinophils Percent Auto 1.1 % (0-4); Hematocrit 38.2 % (37.0-47.0); Hemoglobin 12.7 g/dl (12.0-16.0); Imm Gran Abs Auto 0.01 X10*3/uL (0.00-0.03); Imm Gran Pct Auto 0.1 % (0.0-0.4); Lymphocytes Absolute Auto 2.3 X10*3/uL (1.2-4.9); Mean Corpuscular HGB Conc 33.2 g/dl (31.0-35.0); Mean Corpuscular Hemoglobin 29.1 pg (27.0-33.0); Mean Corpuscular Volume 87.4 fL (80.0-98.0); Mean Platelet Volume 10.6 fL (9.4-12.3); Monocytes Absolute Auto 0.4 X10*3/uL (0.1-1.2); Monocytes Percent Auto 4.9 % (2-11); Neutrophils Absolute Auto 4.6 x10*3/uL (2.0-8.3); Neutrophils Percent Auto 62.4 % (45-73); Platelet Count 221 X10*3/uL (160-400); Red Blood Count 4.37 X10*6/uL (4.20-5.50); White Blood Count 7.4 X10*3/uL (4.8-10.8)
--- NOTE | 2022-12-25 18:20 | PC.NURSE ---
pt resting quietly, no apparent distress, 1:1 staff remains. admits si without plan. denies hi.
[2022-12-25 18:25] LABS: COVID-19 Test Negative (Negative); IDNOW Serial# 08D9AD1C
[2022-12-25 18:27] LABS: Acetaminophen LAB < 17 mcg/mL (<30); Alanine Aminotransferase 7 U/L (0-31); Albumin Level 3.9 g/dL (3.5-5.0); Alkaline Phosphatase 64 U/L (39-117); Anion Gap 11 (12-20); Aspartate Amino Transferase 10 U/L (5-31); Bilirubin Direct 0.1 mg/dL (0.0-0.5); Bilirubin Total 0.3 mg/dL (0.0-1.0); Blood Urea Nitrogen 9 mg/dL (9-16); Calcium 9.2 mg/dL (8.4-10.2); Carbon Dioxide 23 mmol/L (22-29); Chloride 109 mmol/L (96-108); Creatinine Clr Calc Pharmacy 107.6; Estimated Glomerular Filt Rate > 60; Ethanol < 10 mg/dL; Glucose Random 91 mg/dL (60-115); Potassium 3.8 mmol/L (3.3-5.1); Salicylate < 5.0 mg/dL (15-30); Sodium 139 mmol/L (135-145); Total Protein 6.3 g/dL (6.5-8.0)
[2022-12-25] MEDS: diphenhydrAMINE HCL 25 MG CAPSULE 100 MG PO (20:30)
[2022-12-25] MEDS: Zolpidem Tartrate 5 MG TABLET PO (20:31)
[2022-12-25] MEDS: Docusate Sodium 100 MG CAPSULE PO (20:31)
[2022-12-25] MEDS: traZODone HCL 100 MG TABLET 200 MG PO (20:31)
[2022-12-25] MEDS: Benztropine Mesylate 0.5 MG TABLET PO (20:31)
[2022-12-25] MEDS: Prazosin HCL 1 MG CAPSULE PO (20:31)
[2022-12-25 20:41] VITALS: BP 106/51; PULSE 64; RESP 20; TEMP 36.6; O2SAT 96
[2022-12-26] MEDS: hydrOXYzine HCL 50 MG TABLET PO (04:45)
[2022-12-26] MEDS: Omeprazole 20 MG CAPSULE.DR PO (04:45)
[2022-12-26] MEDS: HaloperidoL 5 MG TABLET PO (04:45)
[2022-12-26] MEDS: LORazepam 1 MG TABLET PO (04:46)
[2022-12-26 06:00] VITALS: BP 110/85; PULSE 87; RESP 16; TEMP 36.7; O2SAT 97
--- NOTE | 2022-12-26 06:04 | PC.NURSE ---
Patient slept though the night, no distress observed/reported, PRN haldol 5 mg , Hydroxyzine 50 mg, and Ativan 1 mg PO administered at 0446 for restlessness with + effect, patient is on 1:1 for safety, care consult ordered/pending evaluation, VSS, medication compliant, will continue to monitor.
--- NOTE | 2022-12-26 06:55 | PC.NURSE ---
patient appears to remain asleep at present respirations are even and unlabored patient appears in no distress
[2022-12-26] MEDS: Benztropine Mesylate 0.5 MG TABLET PO (09:33)
[2022-12-26] MEDS: Ferrous Sulfate 324 MG TABLET.DR PO (09:33)
[2022-12-26] MEDS: DULoxetine HCl 60 MG CAPSULE.DR PO (09:33)
[2022-12-26] MEDS: cloNIDine HCL 0.1 MG TABLET PO (09:33)
[2022-12-26] MEDS: Docusate Sodium 100 MG CAPSULE PO (09:33)
[2022-12-26] MEDS: Loratadine 10 MG TABLET PO (09:34)
[2022-12-26] MEDS: OLANZapine 10 MG VIAL IM (09:34)
[2022-12-26 11:31] LABS: Lithium < 0.10 mmol/L (0.60-1.20)
== END 2022-12-26 11:37 | disposition home or self-care (01) ==
PROVIDERS: Physician Assistant; Emergency Provider Internal Medicine; PCP Pediatrics
DX: F60.3 Borderline personality disorder (principal); R45.851 Suicidal ideations; F41.9 Anxiety disorder, unspecified; Z20.822 Contact with and (suspected) exposure to COVID-19; F25.1 Schizoaffective disorder, depressive type; F43.10 Post-traumatic stress disorder, unspecified; F12.90 Cannabis use, unspecified, uncomplicated; F17.210 Nicotine dependence, cigarettes, uncomplicated; E66.9 Obesity, unspecified; Z68.41 Body mass index [BMI] 40.0-44.9, adult; Z91.52 Personal history of nonsuicidal self-harm; Z79.899 Other long term (current) drug therapy
CPT/HCPCS: 36415; 80048; 80076; 80143; 80178; 80179; 80307; 85025; 87635; 96372; 99285; S9485

== ENCOUNTER 2022-12-27 21:37 | Emergency (ER) | payer OTHER, SELFPAY ==
--- NOTE | 2022-12-27 21:41 | ED.PSYCH ---
HPI - Psych General Chief Complaint: Psychiatric Symptoms Stated Complaint: SI Time Seen by Provider: 12/27/22 21:38 Source: patient Mode of arrival: ambulatory Limitations: no limitations History of Present Illness HPI Narrative: 37-year-old female past medical history significant for schizoaffective disorder depressive type, borderline personality disorder,? PTSD, self-inflicted injuries presenting to the emergency department?with complaints of suicidal ideation with plan to cut herself she has been feeling this way for the past month worsening over the past few days.? She reports increasing life stressors and she states that her sisters anniversary is coming up next month which is very hard for her.? She has been cutting with glass.? She denies homicidal ideation.? Denies drugs, alcohol and tobacco.? No medical complaints at this time. Related Data Home Medications Medication Instructions Recorded Confirmed acetaminophen 500 mg tablet 1 tab PO Q6H PRN pain 08/14/22 12/25/22 albuterol sulfate 90 mcg/actuation 2 puff inhalation BID PRN Wheezing 08/14/22 12/25/22 aerosol inhaler (ProAir HFA) diphenhydramine HCl 50 mg capsule 2 cap PO BEDTIME 08/14/22 12/25/22 (Banophen) haloperidol 5 mg tablet 1 tab PO TID PRN Agitation 08/14/22 12/25/22 hydroxyzine pamoate 50 mg capsule 1 cap PO BID PRN Anxiety 08/14/22 12/25/22 nicotine (polacrilex) 2 mg gum 2 mg buccal Q2H PRN Smoking 08/14/22 12/25/22 Cessation omeprazole 20 mg tablet,delayed 20 mg PO DAILY 08/14/22 12/25/22 release zolpidem 10 mg tablet 1 tab PO BEDTIME 08/14/22 12/25/22 cetirizine 10 mg tablet 1 tab PO DAILY 10/07/22 12/25/22 fluticasone propionate 230 2 puff inhalation BID 10/07/22 12/25/22 mcg-salmeterol 21 mcg/actuation HFA inhaler (Advair HFA) benztropine 0.5 mg tablet 1 tab PO BID 10/26/22 12/25/22 clonidine HCl 0.1 mg tablet 1 tab PO TID 10/26/22 12/25/22 duloxetine 60 mg capsule,delayed 1 cap PO DAILY 10/26/22 12/25/22 release ferrous sulfate 325 mg (65 mg 1 tab PO DAILY 10/26/22 12/25/22 iron) tablet,delayed release haloperidol decanoate 100 mg/mL 100 mg IM Q4W 10/26/22 12/25/22 intramuscular solution lithium carbonate 300 mg tablet 300 mg PO DAILY@1700 10/26/22 12/25/22 prazosin 1 mg capsule 1 mg PO BEDTIME 12/25/22 12/25/22 trazodone 100 mg tablet 200 mg PO BEDTIME PRN Insomnia 12/25/22 12/25/22 Previous Rx's Medication Instructions Recorded docusate sodium 100 mg capsule 100 mg PO BID 30 days #60 caps 09/01/22 Allergies Allergy/AdvReac Type Severity Reaction Status Date / Time carbamazepine [From TEGRETOL] AdvReac Unknown NAUSEA & Verified 12/25/22 15:41 VOMITING Fish Containing Products AdvReac Stomach Verified 12/25/22 15:41 Upset Review of Systems Review of Systems: Constitutional : No Weight loss, No Fever, No Chills, No Fatigue, No Malaise ENT/Mouth : No sore throat, No Rhinorrhea Eyes: No Eye Pain, No Swelling, No Redness Cardiovascular : No Chest Pain, No SOB, No Dyspnea on Exertion, No Orthopnea, No Edema, No Palpitations Respiratory : No Cough, No Sputum, No Wheezing Gastrointestinal : No Nausea, No Vomiting, No Diarrhea, No Constipation, No abdominal Pain, No Hematochezia, No Melena Genitourinary : No Dysuria, No Urinary Frequency, No Hematuria, Musculoskeletal : No joint pain, No Myalgias, No Joint Swelling Skin : No Skin Lesions, No rash Neuro : No Weakness, No Numbness, No Dizziness, No Headache Psych : + Anxiety/Panic, + Depression, + SI, No HI Yes all other systems are reviewed and are negative PMFSH Past Medical History Medical History Acute post-traumatic stress disorder Adjustment disorder Anxiety Asthma Borderline personality disorder Chronic post-traumatic stress disorder (PTSD) COPD (chronic obstructive pulmonary disease) Depression GERD (gastroesophageal reflux disease) History of electroconvulsive therapy Increased BMI Injury, self-inflicted Intentional self-harm PTSD (post-traumatic stress disorder) Recurrent major depression-severe Schizoaffective disorder Self-harming behavior Suicidal ideation Suicidal ideation Family History Family History Mother Brain cancer Other No family history of cardiac disease Social History Social History Household Members: Other Household Members Other:: correction Housing: Assisted Living Facility Housing Other:: correction Do you presently have visiting nurse or other home services: No Alcohol intake: current Alcohol intake frequency: does not drink Patient Tobacco Use Status: Current everyday Tobacco user Tobacco use type: Cigarette Cigarette Packs Per Day: 0.5 Cigarettes Per Day: 10.0 Years Smoked: 20 Smoked in Last 30 Days: Yes e-Cigarette/Vaping Use: Never Used Second Hand Smoke Exposure: Yes Use of substances other than those prescribed or required for medical reasons: Unknown Substance Use Type: Marijuana Substance Use Frequency: Chronic Longstanding Last Used Substance: Just Prior to Admission Any prior treatment program specific to substance use: No Advance Directives: No Advance Directives Information Provided: No Patient : Yes service: No Sexual orientation: Straight/Heterosexual Physical Exam Vital Signs: Vital Signs: Last Vital Signs Temp 97.7 F 12/27/22 21:55 Pulse 110 H 12/27/22 21:55 Resp 17 12/27/22 21:55 BP 101/67 12/27/22 21:55 Pulse Ox 95 12/27/22 21:55 O2 Del Method Room Air 12/27/22 21:55 BMI result Body Mass Index 45.7 vss Appearance: Alert.? Oriented X3.? No acute distress Head:? Normocephalic, atraumatic, no step-offs or deformities Eyes: Pupils equal, round and reactive to light.? Neck: Normal inspection.? Neck supple.? CVS: Normal heart rate and rhythm.? Pulses normal.? Respiratory: No respiratory distress.? Breath sounds normal.? Abdomen: Soft and nontender.? Skin: Skin warm and dry.? Normal skin color.? Normal skin turgor.? superficial abrasions over bilateral upper extremities, + active bleeding from RUE Extremities: No lower extremity edema.? No calf ttp.? 5/5 strength to bilateral upper and lower extremities Neuro: Oriented X 3.? No motor deficit.? No sensory deficit. CN 2-12 intac Course Reevaluation(s) Reevaluation #1: Patient very agitated however willing to take p.o. medications. Refusing laboratory studies at this time she did have normal labs 2 days ago. At this time will hold on labs. Will place patient physician observation to allow more time to be evaluated by care team. At time observation was started common cooperative no acute distress Time: 23:46 Medications Administered Discontinued Medications Generic Name Dose Route Start Last Admin Trade Name Freq PRN Reason Stop Dose Admin Diphenhydramine HCl 50 mg 12/27/22 22:25 12/27/22 22:34 Diphenhydramine Hcl 25 Mg Capsule PO 12/27/22 22:26 50 mg ONCE ONE Administration Haloperidol 5 mg 12/27/22 22:25 12/27/22 22:35 Haloperidol 5 Mg Tablet PO 12/27/22 22:26 5 mg ONCE ONE Administration Lorazepam 2 mg 12/27/22 22:25 12/27/22 22:35 Lorazepam 1 Mg Tablet PO 12/27/22 22:26 2 mg ONCE ONE Administration Medical Decision Making Medical Decision Making [facility] Narrative: 2141 37-year-old female presents with presenting with depression, SI w/ plan PE remarkable for superficial abrasions over bilateral upper extremities, + active bleeding. Likely PTSD, suicidal ideation, depression, BPD, schizoaffective disorder depressive type, self-mutilation.? Less likely metabolic disturbances, electrolyte imbalances Differential Diagnosis Differential Diagnoses: The differential diagnosis associated with the presentation includes ?Likely PTSD, suicidal ideation, depression, BPD, schizoaffective disorder depressive type, self-mutilation.? Less likely metabolic disturbances, electrolyte imbalances? Admission/Observation Consideration of admission/observation: Escalation of care including admission/observation considered Lab Data [facility] Lab Attestation statement: I reviewed the patient's lab results. Core Measures AMI core measures followed: Yes Measure exclusions: not indicated Critical Care Time Critical Care Time Critical Care Time: No Discharge Plan Discharge Clinical Impression: Schizoaffective disorder, depressive type Patient Disposition: Still a Patient Prescriptions: No Action haloperidol 5 mg tablet 1 tab PO TID PRN (Reason: Agitation) diphenhydramine HCl [Banophen] 50 mg capsule 2 cap PO BEDTIME hydroxyzine pamoate 50 mg capsule 1 cap PO BID PRN (Reason: Anxiety) zolpidem 10 mg tablet 1 tab PO BEDTIME acetaminophen 500 mg tablet 1 tab PO Q6H PRN (Reason: pain) albuterol sulfate [ProAir HFA] 90 mcg/actuation HFA aerosol inhaler 2 puff inhalation BID PRN (Reason: Wheezing) nicotine (polacrilex) 2 mg Gum 2 mg BUCCAL Q2H PRN (Reason: Smoking Cessation) omeprazole 20 mg Tablet,Delayed Release (Dr/Ec) 20 mg PO DAILY lithium carbonate 300 mg tablet 300 mg PO DAILY@1700 clonidine HCl 0.1 mg tablet 1 tab PO TID benztropine 0.5 mg tablet 1 tab PO BID haloperidol decanoate 100 mg/mL solution 100 mg IM Q4W ferrous sulfate 325 mg (65 mg iron) tablet,delayed release (DR/EC) 1 tab PO DAILY duloxetine 60 mg capsule,delayed release(DR/EC) 1 cap PO DAILY docusate sodium 100 mg Capsule 100 mg PO BID 30 Days Qty: 60 0RF Rx Instructions: HOLD FOR LOOSE STOOL cetirizine 10 mg tablet 1 tab PO DAILY fluticasone propion-salmeterol [Advair HFA] 230-21 mcg/actuation HFA aerosol inhaler 2 puff INHALATION BID prazosin 1 mg capsule 1 mg PO BEDTIME trazodone 100 mg tablet 200 mg PO BEDTIME PRN (Reason: Insomnia) Interventions: [place]-Suicide Risk Severity Scale Last Done: 12/27/22 22:18
[2022-12-27 21:55] VITALS: BP 101/67; PULSE 110; RESP 17; TEMP 36.5; O2SAT 95; BMI 45.7
--- NOTE | 2022-12-27 22:00 | PC.NURSE ---
At around 22:20 pt was gently hitting her head up against the wall without injury while nurse and tech in the room at the time. Pt did not injury herself because staff quickly responded to pts behavior. Security also called to prevent any further injuries inflicted by pt. Security came to pt's room within sections to talk to pt and de-escalate the pt from any further injuries inflicted to herself. At the same time, and PA has been informed of pts behavior and orders put in place for pts safety. 1:1 sitter at bedside and room clear of any possible injury items. Pt at moment is cooperative but is closely monitored by video monitor and the 1:1 sitter at bedside. all items locked in locker for safety. Pt is asking for crisis intervention and states I will Kill myself tonight. I am exhausted and no one cares about my well being or the fact that I have stressed SI and I will probably get discharged in the am and if I get discharged, I will harm myself . and Marcela.A.R.Gael team informed of pts feeling and thoughts of suicide.
[2022-12-27] MEDS: diphenhydrAMINE HCL 25 MG CAPSULE 50 MG PO (22:34)
[2022-12-27] MEDS: HaloperidoL 5 MG TABLET PO (22:35)
[2022-12-27] MEDS: LORazepam 1 MG TABLET 2 MG PO (22:35)
[2022-12-28] VITALS: O2SAT 98
[2022-12-28 00:31] LABS: MANUAL DIFF FLAG NO
[2022-12-28 00:32] LABS: Basophils Percent Auto 0.4 % (0-2); Eosinophils Absolute Auto 0.1 X10*3/uL (0.0-0.4); Eosinophils Percent Auto 1.2 % (0-4); Hematocrit 36.6 % (37.0-47.0); Hemoglobin 12.1 g/dl (12.0-16.0); Imm Gran Abs Auto 0.03 X10*3/uL (0.00-0.03); Imm Gran Pct Auto 0.4 % (0.0-0.4); Lymphocytes Percent Auto 26.2 % (20-40); Mean Corpuscular HGB Conc 33.1 g/dl (31.0-35.0); Mean Corpuscular Hemoglobin 29.1 pg (27.0-33.0); Mean Platelet Volume 10.7 fL (9.4-12.3); Monocytes Absolute Auto 0.4 X10*3/uL (0.1-1.2); Monocytes Percent Auto 5.3 % (2-11); Neutrophils Absolute Auto 5.2 x10*3/uL (2.0-8.3); Neutrophils Percent Auto 66.5 % (45-73); Platelet Count 227 X10*3/uL (160-400); Red Blood Count 4.16 X10*6/uL (4.20-5.50); White Blood Count 7.8 X10*3/uL (4.8-10.8)
[2022-12-28 00:46] LABS: Ethanol < 10 mg/dL
[2022-12-28 00:48] LABS: COVID-19 Test Negative (Negative); IDNOW Serial# 08D9AD1C
[2022-12-28 00:54] LABS: Alanine Aminotransferase 8 U/L (0-31); Albumin Level 3.6 g/dL (3.5-5.0); Alkaline Phosphatase 61 U/L (39-117); Anion Gap 12 (12-20); Aspartate Amino Transferase 9 U/L (5-31); Bilirubin Total 0.2 mg/dL (0.0-1.0); Blood Urea Nitrogen 11 mg/dL (9-16); Calcium 9.1 mg/dL (8.4-10.2); Carbon Dioxide 23 mmol/L (22-29); Chloride 107 mmol/L (96-108); Creatinine Clr Calc Pharmacy 121.8; Estimated Glomerular Filt Rate > 60; Glucose Random 112 mg/dL (60-115); Magnesium 1.9 mg/dL (1.6-2.6); Potassium 4.3 mmol/L (3.3-5.1); Sodium 138 mmol/L (135-145); Total Protein 5.9 g/dL (6.5-8.0)
[2022-12-28 00:56] LABS: HCG Quantitative < 2 mIU/mL
[2022-12-28 01:57] LABS: Appearance Urine Clear; Color Urine Yellow; Glucose Urine UA Negative (Negative); Leukocyte Esterase Urine Negative (Negative); Nitrite Urine Negative (Negative); Urine Blood Negative (Negative); Urine Ketones Negative (Negative); Urine Protein Negative (Neg-Trace)
[2022-12-28 02:10] LABS: Amphetamine Screen Urine Not Detected (Not Detect); Barbiturates, Urine Not Detected (Not Detect); Benzodiazepines Screen Urine Not Detected (Not Detect); Cannabinoid Screen Urine POSITIVE (Not Detect); Cocaine Screen Urine Not Detected (Not Detect); Fentanyl, urine POSITIVE (Not Detect); Opiate Screen Urine Not Detected (Not Detect); Phencyclidine Screen Urine Not Detected (Not Detect)
--- NOTE | 2022-12-28 10:00 | PC.NURSE ---
assumed care of this pt at 0700. pt sleeping at the time of assuming care. one-to-one staff remains at bedside. will continue to monitor.
--- NOTE | 2022-12-28 12:54 | MHC.CARE ---
Pt seen by CARE team and discharged back to care home.
== END 2022-12-28 11:31 | disposition still patient (30) ==
PROVIDERS: Physician Assistant; Emergency Provider Internal Medicine; PCP Pediatrics
DX: F25.1 Schizoaffective disorder, depressive type (principal); R45.851 Suicidal ideations; F17.210 Nicotine dependence, cigarettes, uncomplicated; Z20.822 Contact with and (suspected) exposure to COVID-19; Z20.828 Contact with and (suspected) exposure to other viral communicable diseases; Z71.6 Tobacco abuse counseling; Z79.899 Other long term (current) drug therapy
CPT/HCPCS: 36415; 80053; 80307; 81003; 83735; 84702; 85025; 87635; 99285; S9485

== ENCOUNTER 2022-12-28 20:45 | Emergency (ER) | payer OTHER, SELFPAY ==
[2022-12-28 20:58] VITALS: BP 112/73; PULSE 120; RESP 18; TEMP 37.1; O2SAT 96; BMI 41.4
--- NOTE | 2022-12-28 21:16 | ED.PSYCH ---
HPI - Psych General Chief Complaint: Psychiatric Symptoms Stated Complaint: SI Time Seen by Provider: 12/28/22 21:08 Source: patient Mode of arrival: EMS Limitations: no limitations History of Present Illness HPI Narrative: Patient comes to the emergency room via ambulance for the retirement. Patient states that she has been having suicidal thoughts, and a piece of broken glass and started cutting her left forearm and left thigh. Patient denies homicidal ideation . The patient states that this time she tried to cut as deep as she could, attempting to cut a vein Related Data Home Medications Medication Instructions Recorded Confirmed acetaminophen 500 mg tablet 1 tab PO Q6H PRN pain 08/14/22 12/28/22 albuterol sulfate 90 mcg/actuation 2 puff inhalation BID PRN Wheezing 08/14/22 12/28/22 aerosol inhaler (ProAir HFA) diphenhydramine HCl 50 mg capsule 2 cap PO BEDTIME 08/14/22 12/28/22 (Banophen) haloperidol 5 mg tablet 1 tab PO TID PRN Agitation 08/14/22 12/25/22 hydroxyzine pamoate 50 mg capsule 1 cap PO BID PRN Anxiety 08/14/22 12/25/22 nicotine (polacrilex) 2 mg gum 2 mg buccal Q2H PRN Smoking 08/14/22 12/25/22 Cessation omeprazole 20 mg tablet,delayed 20 mg PO DAILY 08/14/22 12/25/22 release zolpidem 10 mg tablet 1 tab PO BEDTIME 08/14/22 12/25/22 cetirizine 10 mg tablet 1 tab PO DAILY 10/07/22 12/28/22 fluticasone propionate 230 2 puff inhalation BID 10/07/22 12/25/22 mcg-salmeterol 21 mcg/actuation HFA inhaler (Advair HFA) benztropine 0.5 mg tablet 1 tab PO BID 10/26/22 12/28/22 clonidine HCl 0.1 mg tablet 1 tab PO TID 10/26/22 12/28/22 duloxetine 60 mg capsule,delayed 1 cap PO DAILY 10/26/22 12/25/22 release ferrous sulfate 325 mg (65 mg 1 tab PO DAILY 10/26/22 12/25/22 iron) tablet,delayed release haloperidol decanoate 100 mg/mL 100 mg IM Q4W 10/26/22 12/25/22 intramuscular solution lithium carbonate 300 mg tablet 300 mg PO DAILY@1700 10/26/22 12/25/22 prazosin 1 mg capsule 1 mg PO BEDTIME 12/25/22 12/25/22 trazodone 100 mg tablet 200 mg PO BEDTIME PRN Insomnia 12/25/22 12/25/22 Previous Rx's Medication Instructions Recorded docusate sodium 100 mg capsule 100 mg PO BID 30 days #60 caps 09/01/22 Allergies Allergy/AdvReac Type Severity Reaction Status Date / Time carbamazepine [From TEGRETOL] AdvReac Unknown NAUSEA & Verified 12/25/22 15:41 VOMITING Fish Containing Products AdvReac Stomach Verified 12/25/22 15:41 Upset Review of Systems Review of Systems: Constitutional : No Weight loss, No Fever, No Chills, No Night Sweats, No Fatigue, No Malaise ENT/Mouth : No Hearing loss, No Ear Pain, No Nasal Congestion, No Sinus Pain, No Hoarseness, No sore throat, No Rhinorrhea, No Swallowing Difficulty Eyes: No Eye Pain, No Swelling, No Redness, No Foreign Body, No Discharge, No Vision Changes Cardiovascular : No Chest Pain, No SOB, No Dyspnea on Exertion, No Orthopnea, No Edema, No Palpitations Respiratory : No Cough, No Sputum, No Wheezing, No Smoke Exposure, No Dyspnea Gastrointestinal : No Nausea, No Vomiting, No Diarrhea, No Constipation, No abdominal Pain, No Hematochezia, No Melena Genitourinary : no irregular bleeding, No Dysuria, No Urinary Frequency, No Hematuria, No Urinary Incontinence, No Urgency, No Flank Pain, No Urinary Flow Changes, No Hesitancy Musculoskeletal : No joint pain, No Myalgias, No Joint Swelling Skin : No Skin Lesions, No rash Neuro : No Weakness, No Numbness, No Paresthesias, No Loss of Consciousness, No Dizziness, No Headache Psych : complaining of feeling anxious, suicidal, not homicidal ideations Heme/Lymph: No Bruising, No Bleeding,No Lymphadenopathy Endocrine : No Polyuria, No Polydipsia, No Temperature Intolerance PMFSH Past Medical History Medical History Acute post-traumatic stress disorder Adjustment disorder Anxiety Asthma Borderline personality disorder Chronic post-traumatic stress disorder (PTSD) COPD (chronic obstructive pulmonary disease) Depression GERD (gastroesophageal reflux disease) History of electroconvulsive therapy Increased BMI Injury, self-inflicted Intentional self-harm PTSD (post-traumatic stress disorder) Recurrent major depression-severe Schizoaffective disorder Self-harming behavior Suicidal ideation Suicidal ideation Family History Family History Mother Brain cancer Other No family history of cardiac disease Social History Social History Household Members: Other Household Members Other:: retirement Housing: Assisted Living Facility Housing Other:: retirement Do you presently have visiting nurse or other home services: No Alcohol intake: current Alcohol intake frequency: does not drink Patient Tobacco Use Status: Current everyday Tobacco user Tobacco use type: Cigarette Cigarette Packs Per Day: 0.5 Cigarettes Per Day: 10.0 Years Smoked: 20 e-Cigarette/Vaping Use: Never Used Second Hand Smoke Exposure: Yes Substance Use Type: Marijuana service: No Sexual orientation: Straight/Heterosexual Physical Exam Vital Signs: Vital Signs: Last Vital Signs Temp 98.8 F 12/28/22 20:58 Pulse 120 H 12/28/22 20:58 Resp 18 12/28/22 20:58 BP 112/73 12/28/22 20:58 Pulse Ox 96 12/28/22 20:58 O2 Del Method Room Air 12/28/22 20:58 BMI result Body Mass Index 41.4 Const: Other: Appearance: Alert. Oriented X3. No acute distress. Eyes: Pupils equal, round and reactive to light. ENT: Pharynx normal. Neck: Normal inspection. Neck supple. No lymph nodes noted. No crepitus CVS: Normal heart rate and rhythm. Pulses normal. Normal S1 and S2 Respiratory: No respiratory distress. Breath sounds normal. No Wheezing. No rales Abdomen: Soft and nontender. No rigidity. No distention. Skin: Skin warm and dry. Patient has two lacerations, each one is 3 mm deep in the left forearm, there is also and laceration in the lateral aspect of the left knee Extremities: No lower extremity edema. No Lacerations. No Rash Neuro: Oriented X 3. No motor deficit. No sensory deficit. Moving all extremities. No slurred speech. CN 2 through 12 grossly intact Psych: calm, cooperative, normal affect Medical Decision Making Medical Decision Making MDM Narrative: -patient has 3 lacerations, on the left forearm. Laceration when needed 7 wallace, 2nd laceration eat 6 wallace. On the left side of the knee, the laceration needed 5 wallace -lidocaine 1% without epinephrine was infiltrated in all 3 lacerations -care team consult pending -patient on a Section 12 -physician observation started at 22:20 Lab Data Labs: Lab Results 12/28/22 12/28/22 Range/Units 21:18 21:32 Ethyl Alcohol < 10 mg/dL COVID-19 ([facility]) Negative (Negative) COVID-19 Clin Com See Note Discharge Plan Discharge Clinical Impression: Suicide attempt, Multiple lacerations Patient Disposition: Still a Patient Prescriptions: No Action haloperidol 5 mg tablet 1 tab PO TID PRN (Reason: Agitation) diphenhydramine HCl [Banophen] 50 mg capsule 2 cap PO BEDTIME hydroxyzine pamoate 50 mg capsule 1 cap PO BID PRN (Reason: Anxiety) zolpidem 10 mg tablet 1 tab PO BEDTIME acetaminophen 500 mg tablet 1 tab PO Q6H PRN (Reason: pain) albuterol sulfate [ProAir HFA] 90 mcg/actuation HFA aerosol inhaler 2 puff inhalation BID PRN (Reason: Wheezing) nicotine (polacrilex) 2 mg Gum 2 mg BUCCAL Q2H PRN (Reason: Smoking Cessation) omeprazole 20 mg Tablet,Delayed Release (Dr/Ec) 20 mg PO DAILY lithium carbonate 300 mg tablet 300 mg PO DAILY@1700 clonidine HCl 0.1 mg tablet 1 tab PO TID benztropine 0.5 mg tablet 1 tab PO BID haloperidol decanoate 100 mg/mL solution 100 mg IM Q4W ferrous sulfate 325 mg (65 mg iron) tablet,delayed release (DR/EC) 1 tab PO DAILY duloxetine 60 mg capsule,delayed release(DR/EC) 1 cap PO DAILY docusate sodium 100 mg Capsule 100 mg PO BID 30 Days Qty: 60 0RF Rx Instructions: HOLD FOR LOOSE STOOL cetirizine 10 mg tablet 1 tab PO DAILY fluticasone propion-salmeterol [Advair HFA] 230-21 mcg/actuation HFA aerosol inhaler 2 puff INHALATION BID prazosin 1 mg capsule 1 mg PO BEDTIME trazodone 100 mg tablet 200 mg PO BEDTIME PRN (Reason: Insomnia)
[2022-12-28 21:38] LABS: COVID-19 Test Negative (Negative); IDNOW Serial# 08D9AD1C
[2022-12-28 21:50] LABS: Ethanol < 10 mg/dL
[2022-12-28] MEDS: Lidocaine HCl 2 % 20 ML VIAL INFILTRATI (22:18)
[2022-12-28] MEDS: HaloperidoL 5 MG TABLET PO (23:32)
[2022-12-28] MEDS: hydrOXYzine HCL 50 MG TABLET PO (23:32)
[2022-12-28 23:36] LABS: UPreg QC Valid YES; Urine Pregnancy NEGATIVE (NEGATIVE)
[2022-12-28 23:36] LABS: Appearance Urine Clear; Color Urine Yellow; Glucose Urine UA Negative (Negative); Leukocyte Esterase Urine Negative (Negative); Nitrite Urine Negative (Negative); Specific Gravity - Urine 1.015 (1.005-1.025); Urine Blood Negative (Negative); Urine Ketones Negative (Negative); Urine Protein Negative (Neg-Trace)
[2022-12-28 23:46] LABS: Amphetamine Screen Urine Not Detected (Not Detect); Barbiturates, Urine Not Detected (Not Detect); Benzodiazepines Screen Urine Not Detected (Not Detect); Cannabinoid Screen Urine POSITIVE (Not Detect); Cocaine Screen Urine Not Detected (Not Detect); Fentanyl, urine POSITIVE (Not Detect); Opiate Screen Urine Not Detected (Not Detect); Phencyclidine Screen Urine Not Detected (Not Detect)
--- NOTE | 2022-12-29 05:53 | PC.NURSE ---
Patient slept through the night, no distress observed/reported, patient is on 1:1 for safety, patient has 3 laceration, 2 on left forearm and one left knee, received wallace refer provider's note for detail information, medication compliant, care consult ordered/pending evaluation in the morning, VSS, will continue to monitor.
[2022-12-29] MEDS: Omeprazole 20 MG CAPSULE.DR PO (06:31)
[2022-12-29 06:50] VITALS: BP 116/68; PULSE 62; RESP 17; TEMP 36.8; O2SAT 95
[2022-12-29] MEDS: Loratadine 10 MG TABLET PO (09:57)
[2022-12-29] MEDS: Ferrous Sulfate 324 MG TABLET.DR PO (09:57)
[2022-12-29] MEDS: cloNIDine HCL 0.1 MG TABLET PO (09:57)
[2022-12-29] MEDS: DULoxetine HCl 60 MG CAPSULE.DR PO (09:57)
[2022-12-29] MEDS: Benztropine Mesylate 0.5 MG TABLET PO (09:58)
--- NOTE | 2022-12-29 11:00 | PC.NURSE ---
Changed dressing to L arm and L knee. Inez are CDI. No redness or swelling.
== END 2022-12-29 12:33 | disposition home or self-care (01) ==
PROVIDERS: Emergency Provider Emergency Medicine
DX: S51.812A Laceration without foreign body of left forearm, initial encounter (principal); R45.851 Suicidal ideations; F33.1 Major depressive disorder, recurrent, moderate; F17.210 Nicotine dependence, cigarettes, uncomplicated; X78.9XXA Intentional self-harm by unspecified sharp object, initial encounter; Y93.9 Activity, unspecified; Y92.9 Unspecified place or not applicable; Y99.9 Unspecified external cause status; Z20.822 Contact with and (suspected) exposure to COVID-19; Z20.828 Contact with and (suspected) exposure to other viral communicable diseases; Z79.899 Other long term (current) drug therapy; Z71.6 Tobacco abuse counseling
CPT/HCPCS: 12034; 36415; 80307; 81003; 81025; 87635; 99284; 99285

== ENCOUNTER 2022-12-30 06:02 | Day surgery (SDC) | payer OTHER, SELFPAY ==
[2022-12-30] VITALS (7 sets, daily range): BP systolic 116–130; BP diastolic 65–80; PULSE 77–88; RESP 16–20; TEMP 36.2–37.1; O2SAT 93–96; BMI 41.4
[2022-12-30 06:20] LABS: UPreg QC Valid YES
[2022-12-30 06:21] LABS: Urine Pregnancy NEGATIVE (NEGATIVE)
--- NOTE | 2022-12-30 07:01 | P.CONAN_ITS ---
[facility] Active Problems Active Problems: All Active Problems (Updated 12/30/22 @ 00:54 by Adiel Sevilla) Injury of ligament of right knee (Acute) Sprain of anterior cruciate ligament of right knee (Acute) Hernia (Chronic) Schizoaffective disorder, depressive type (Chronic) Sprain of left foot (Acute) COVID-19 (Acute) COVID-19 (Acute) Chronic post-traumatic stress disorder (PTSD) (Chronic) Increased BMI (Acute) GERD (gastroesophageal reflux disease) (Acute) Borderline personality disorder (Chronic) Past Medical History Medical History Acute post-traumatic stress disorder Adjustment disorder Anxiety Asthma Borderline personality disorder Chronic post-traumatic stress disorder (PTSD) COPD (chronic obstructive pulmonary disease) Depression GERD (gastroesophageal reflux disease) History of electroconvulsive therapy Increased BMI Injury, self-inflicted Intentional self-harm PTSD (post-traumatic stress disorder) Recurrent major depression-severe Schizoaffective disorder Self-harming behavior Suicidal ideation Suicidal ideation Family History Family History Mother Brain cancer Other No family history of cardiac disease Family history of problems with anesthesia: No Surgical History History of Problems with Anesthesia: No Social History Social History Household Members: Other Household Members Other:: fdc Housing: Assisted Living Facility Housing Other:: fdc Do you presently have visiting nurse or other home services: No Alcohol intake: current Alcohol intake frequency: does not drink Patient Tobacco Use Status: Current everyday Tobacco user Tobacco use type: Cigarette Cigarette Packs Per Day: 0.5 Cigarettes Per Day: 10.0 Years Smoked: 20 e-Cigarette/Vaping Use: Never Used Second Hand Smoke Exposure: Yes Use of substances other than those prescribed or required for medical reasons: Yes Substance Use Type: Marijuana Substance Use Frequency: Daily Are you DNR?: No Advance Directives: No Advance Directives Information Provided: Yes service: No Sexual orientation: Straight/Heterosexual Meds Allergies Allergy/AdvReac Type Severity Reaction Status Date / Time carbamazepine [From TEGRETOL] AdvReac Mild Nausea and Verified 12/30/22 06:19 Vomiting topiramate [From Topamax] AdvReac Mild Nausea and Verified 12/30/22 06:19 Vomiting Active Medications: Current Medications Lactated Ringer's (Lr) 1,000 mls @ 50 mls/hr IVCONT .Q20H [facility] Home Medications Medication Instructions Recorded Confirmed Last Taken Type acetaminophen 500 mg tablet 1 tab PO Q6H PRN pain 08/14/22 12/28/22 Unknown History albuterol sulfate 90 mcg/actuation 2 puff inhalation BID PRN Wheezing 08/14/22 12/28/22 Unknown History aerosol inhaler (ProAir HFA) diphenhydramine HCl 50 mg capsule 2 cap PO BEDTIME 08/14/22 12/28/22 Unknown History (Banophen) haloperidol 5 mg tablet 1 tab PO TID PRN Agitation 08/14/22 12/28/22 Unknown History hydroxyzine pamoate 50 mg capsule 1 cap PO BID PRN Anxiety 08/14/22 12/28/22 Unknown History nicotine (polacrilex) 2 mg gum 2 mg buccal Q2H PRN Smoking 08/14/22 12/28/22 Unknown History Cessation omeprazole 20 mg tablet,delayed 20 mg PO DAILY 08/14/22 12/28/22 Unknown History release zolpidem 10 mg tablet 1 tab PO BEDTIME 08/14/22 12/28/22 Unknown History cetirizine 10 mg tablet 1 tab PO DAILY 10/07/22 12/28/22 Unknown History fluticasone propionate 230 2 puff inhalation BID 10/07/22 12/28/22 Unknown History mcg-salmeterol 21 mcg/actuation HFA inhaler (Advair HFA) benztropine 0.5 mg tablet 1 tab PO BID 10/26/22 12/28/22 Unknown History clonidine HCl 0.1 mg tablet 1 tab PO TID 10/26/22 12/28/22 Unknown History duloxetine 60 mg capsule,delayed 1 cap PO DAILY 10/26/22 12/28/22 Unknown History release ferrous sulfate 325 mg (65 mg 1 tab PO DAILY 10/26/22 12/28/22 Unknown History iron) tablet,delayed release haloperidol decanoate 100 mg/mL 100 mg IM Q4W 10/26/22 12/28/22 12/16/22 History intramuscular solution lithium carbonate 300 mg tablet 300 mg PO DAILY@1700 10/26/22 12/28/22 Unknown History prazosin 1 mg capsule 1 mg PO BEDTIME 12/25/22 12/28/22 Unknown History trazodone 100 mg tablet 200 mg PO BEDTIME PRN Insomnia 12/25/22 12/28/22 Unknown History Exam Exam Date and Time: December 30, 2022 0701 Height,Weight and Vital Signs: Height 4 ft 11 in Weight 92.986 kg Last Vital Signs Temp 97.1 F 12/30/22 06:21 Pulse 77 12/30/22 06:21 Resp 16 12/30/22 06:21 BP 130/78 12/30/22 06:21 Pulse Ox 96 12/30/22 06:21 O2 Del Method Room Air 12/30/22 06:21 Pertinent Lab Results Pertinent Lab Results: Laboratory Tests 12/30/22 06:10 Urine Test NEGATIVE Airway Mallampati Class: III TM Dist: >3cm Neck ROM: Full Heart: rrr Lungs: cta Assessment and Plan Assessment Anesthesia Assessment: Anesthesia Plan Discussed and Chart Reviewed Final Anesthetic Review Family History of Problems with Anesthesia: No History of Problems with Anesthesia: No NPO: Yes ASA Class: III Final Preanesthetic Review: No Changes in Pt Med Stat, Meds/Allgs Chart Reviewed and Consent Obtained/Reviewed Patient Risk: Intermediate Procedure Risk: Intermediate Anesthetic Plan Anesthetic Plan: GA Disposition: Standard PACU
--- NOTE | 2022-12-30 07:08 | MHC.SHP ---
Pre-Procedural Eval Section A Date of Service: 12/30/22 Section B Chief Complaint: Major depressive disorder, recurrent, severe with Details of Present Illness: pos self harm c/w borderline per dx/ptsd ect seems to help mood dx Relevant Social History: Other (specify) (marijuana) Present Medications: see Short Stay Collaborative assessment Allergies: Allergies Allergy/AdvReac Type Severity Reaction Status Date / Time carbamazepine [From TEGRETOL] AdvReac Mild Nausea and Verified 12/30/22 06:19 Vomiting topiramate [From Topamax] AdvReac Mild Nausea and Verified 12/30/22 06:19 Vomiting Review of Systems Sugical H&P ROS: Negative: Cardiovascular and Respiratory and Yes, Specify: Psychiatric (s/p lacerationl urges to cut ) and Integumentary (laceration) Exam Surgical H&P Exam: Normal: Heart and Normal: Lungs and Significant Findings: Extremities (laceration) Plan Diagnosis/Plan: Unchanged I have reviewed the history and physical and performed a pertinent physical examination on my patient. No changes have occurred unless specified. ? false pos fentanyl Time Spent With Patient Time: Total time managing care of this patient today ____ minutes.
--- NOTE | 2022-12-30 07:38 | HO.ECTPROC ---
ECT Procedure Note Diagnosis/Treatment Date of Service: 12/30/22 Diagnosis: Major Depressive Disorder and Other (ptsd/borderline per dx) Previous ECT Date: 12/07/22 Treatment: Maintenance Interval Clinical Notes: The patient reports less depressed still SIB feels ect helpful difficult to quantify Time: Total time managing care of this patient today ____ minutes. ECT Settings Device: THYMATRON DGx Electrode Placement: Bitemporal Program/Pulse Width: 0.50 Energy Percent: 100 Seizure Duration By EEG (in seconds): 26 Medications Administration General Anesthetic: Etomidate (14) Muscle Relaxant: Succinylcholine (100) Ancillary Medications Analgesics: Torodol - Pre ECT (15) Anti-emetics: Zofran - Pre ECT (4) Miscillaneous Medications: Propofol (30) Airway Management Airway Management: Bag Mask Ventilation Treatment Recommendations No Changes Recommended: No change Notes: f/u tx 2 weeks ck labs Pt Tolerated Procedure w/o Issue: Yes
[2022-12-30] MEDS: Heparin Sodium,Porcine Flush 50 UNITS, 0.9 % Sodium Chloride Flush 5 ML IVFLUSH (08:16)
[2022-12-30 10:25] LABS: Amphetamine Screen Urine Not Detected (Not Detect); Barbiturates, Urine Not Detected (Not Detect); Benzodiazepines Screen Urine Not Detected (Not Detect); Cannabinoid Screen Urine POSITIVE (Not Detect); Cocaine Screen Urine Not Detected (Not Detect); Opiate Screen Urine Not Detected (Not Detect); Phencyclidine Screen Urine Not Detected (Not Detect)
[2022-12-30 10:29] LABS: Fentanyl, urine POSITIVE (Not Detect)
== END 2022-12-30 09:30 | disposition home or self-care (01) ==
PROVIDERS: Visit Provider Psychiatry & Neurology Psychiatry
PROC: (CPT 90870; principal; 2022-12-30 07:00)
DX: F33.2 Major depressive disorder, recurrent severe without psychotic features (principal); F43.12 Post-traumatic stress disorder, chronic; F60.3 Borderline personality disorder; G47.34 Idiopathic sleep related nonobstructive alveolar hypoventilation; G47.33 Obstructive sleep apnea (adult) (pediatric); R91.8 Other nonspecific abnormal finding of lung field; M54.50 Low back pain, unspecified; E66.01 Morbid (severe) obesity due to excess calories; Z68.43 Body mass index [BMI] 50.0-59.9, adult; R45.851 Suicidal ideations; J45.909 Unspecified asthma, uncomplicated; Z79.51 Long term (current) use of inhaled steroids; Z79.899 Other long term (current) drug therapy; Z88.8 Allergy status to other drugs, medicaments and biological substances; Z72.89 Other problems related to lifestyle; F17.210 Nicotine dependence, cigarettes, uncomplicated
CPT/HCPCS: 80307; 80354; 81025; 90870; J0330; J1642; J1885; J2405

== ENCOUNTER 2023-01-08 10:54 | Emergency (ER) | payer OTHER, SELFPAY ==
[2023-01-08 10:58] VITALS: BP 113/77; PULSE 75; RESP 18; TEMP 36.2; O2SAT 98; BMI 42.0
--- NOTE | 2023-01-08 11:31 | ED_ITS ---
HPI - General Adult General Chief complaint: General Medical Stated complaint: staple removal Time Seen by Provider: 01/08/23 11:15 Source: patient and old records reviewed Mode of arrival: ambulatory Limitations: no limitations History of Present Illness HPI narrative: 37-year-old female well known to the ER with a history of PTSD, borderline personality disorder, schizoaffective disorder, recurrent cutting who presents to the ER today for staple removal. she was initially seen here on December 28 for multiple self-inflicted lacerations. She required wallace to 2 lacerations on her left forearm and some on her left knee. She states the wounds have been healing appropriately. Her staff at her half-way has been putting bacitracin on the wound on her left knee because it is slightly red. No drainage, no fevers. No further cutting. Patient is feeling well mentally and doing well in the community. MD complaint: staple removal Location: left, upper extremity and lower extremity Radiation: non-radiation Relieving factors: none Exacerbating factors: none Associated symptoms: denies other symptoms Treatments prior to arrival: none Related Data Home Medications Medication Instructions Recorded Confirmed acetaminophen 500 mg tablet 1 tab PO Q6H PRN pain 08/14/22 12/28/22 albuterol sulfate 90 mcg/actuation 2 puff inhalation BID PRN Wheezing 08/14/22 12/28/22 aerosol inhaler (ProAir HFA) diphenhydramine HCl 50 mg capsule 2 cap PO BEDTIME 08/14/22 12/28/22 (Banophen) haloperidol 5 mg tablet 1 tab PO TID PRN Agitation 08/14/22 12/28/22 hydroxyzine pamoate 50 mg capsule 1 cap PO BID PRN Anxiety 08/14/22 12/28/22 nicotine (polacrilex) 2 mg gum 2 mg buccal Q2H PRN Smoking 08/14/22 12/28/22 Cessation omeprazole 20 mg tablet,delayed 20 mg PO DAILY 08/14/22 12/28/22 release zolpidem 10 mg tablet 1 tab PO BEDTIME 08/14/22 12/28/22 cetirizine 10 mg tablet 1 tab PO DAILY 10/07/22 12/28/22 fluticasone propionate 230 2 puff inhalation BID 10/07/22 12/28/22 mcg-salmeterol 21 mcg/actuation HFA inhaler (Advair HFA) benztropine 0.5 mg tablet 1 tab PO BID 10/26/22 12/28/22 clonidine HCl 0.1 mg tablet 1 tab PO TID 10/26/22 12/28/22 duloxetine 60 mg capsule,delayed 1 cap PO DAILY 10/26/22 12/28/22 release ferrous sulfate 325 mg (65 mg 1 tab PO DAILY 10/26/22 12/28/22 iron) tablet,delayed release haloperidol decanoate 100 mg/mL 100 mg IM Q4W 10/26/22 12/28/22 intramuscular solution lithium carbonate 300 mg tablet 300 mg PO DAILY@1700 10/26/22 12/28/22 prazosin 1 mg capsule 1 mg PO BEDTIME 12/25/22 12/28/22 trazodone 100 mg tablet 200 mg PO BEDTIME PRN Insomnia 12/25/22 12/28/22 Previous Rx's Medication Instructions Recorded docusate sodium 100 mg capsule 100 mg PO BID 30 days #60 caps 09/01/22 Allergies Allergy/AdvReac Type Severity Reaction Status Date / Time carbamazepine [From TEGRETOL] AdvReac Mild Nausea and Verified 01/08/23 11:02 Vomiting topiramate [From Topamax] AdvReac Mild Nausea and Verified 01/08/23 11:02 Vomiting PMFSH Past Medical History Medical History Acute post-traumatic stress disorder Adjustment disorder Anxiety Asthma Borderline personality disorder Chronic post-traumatic stress disorder (PTSD) COPD (chronic obstructive pulmonary disease) Depression GERD (gastroesophageal reflux disease) History of electroconvulsive therapy Increased BMI Injury, self-inflicted Intentional self-harm PTSD (post-traumatic stress disorder) Recurrent major depression-severe Schizoaffective disorder Self-harming behavior Suicidal ideation Suicidal ideation Family History Family History Mother Brain cancer Other No family history of cardiac disease Social History Social History Household Members: Other Household Members Other:: half-way Housing: Assisted Living Facility Housing Other:: half-way Do you presently have visiting nurse or other home services: No Alcohol intake: current Alcohol intake frequency: does not drink Patient Tobacco Use Status: Current everyday Tobacco user Tobacco use type: Cigarette Cigarette Packs Per Day: 0.5 Cigarettes Per Day: 10.0 Years Smoked: 20 e-Cigarette/Vaping Use: Never Used Second Hand Smoke Exposure: Yes Substance Use Type: Marijuana Advance Directives: No service: No Sexual orientation: Straight/Heterosexual Physical Exam ED Vital Signs: Vital Signs - 24 hr 01/08/23 10:58 Temperature 97.2 F Pulse Rate 75 Respiratory Rate 18 Blood Pressure 113/77 Pulse Oximetry 98 Oxygen Delivery Method Room Air BMI result Body Mass Index 42.0 Appearance: Alert. Oriented X3. No acute distress. HEENT: normal inspection CVS: Normal heart rate and rhythm. Pulses normal. Respiratory: No respiratory distress. Skin: Skin warm and dry. Normal skin color. Normal skin turgor. No rashes. Extremities: left proximal knee with a laceration with a well-healing laceration with [address], mild erythema at the site of the wallace. Left dorsal forearm with 2 linear lacerations, with appropriately healing with 7 wallace and 1, 6 walalce in the other. No surrounding erythema, dehiscence, drainage. Neuro/psych: Oriented X 3. No motor deficit. No sensory deficit. Patient is in a good mood, she is appropriate and in not in crisis Medical Decision Making Medical Decision Making MDM Narrative: 37-year-old female with recurring cutting presenting to the ER for staple removal of lacerations to her left knee and left forearm. Wounds are healing appropriately. all wallace were removed without issue. There was slight Separation in the middle of the wound on her left knee so this was reinforced with Steri-Strips. Wound care was discussed with the patient. She is stable for discharge home. Staff member in the emergency room department waiting room to bring her home. Differential Diagnosis Differential Diagnoses: The differential diagnosis associated with the presentation includes appropriate wound healing, delayed wound healing, no evidence of wound infection External Record Review External record reviewed: Outpatient record Chronic Conditions Patient?s care impacted by: Other ( borderline personality disorder, schizoaffective disorder) Critical Care Time Critical Care Time Critical Care Time: No Discharge Plan Discharge Clinical Impression: Encounter for removal of wallace Patient Disposition: Home, Self-Care Prescriptions: No Action haloperidol 5 mg tablet 1 tab PO TID PRN (Reason: Agitation) diphenhydramine HCl [Banophen] 50 mg capsule 2 cap PO BEDTIME hydroxyzine pamoate 50 mg capsule 1 cap PO BID PRN (Reason: Anxiety) zolpidem 10 mg tablet 1 tab PO BEDTIME acetaminophen 500 mg tablet 1 tab PO Q6H PRN (Reason: pain) albuterol sulfate [ProAir HFA] 90 mcg/actuation HFA aerosol inhaler 2 puff inhalation BID PRN (Reason: Wheezing) nicotine (polacrilex) 2 mg Gum 2 mg BUCCAL Q2H PRN (Reason: Smoking Cessation) omeprazole 20 mg Tablet,Delayed Release (Dr/Ec) 20 mg PO DAILY lithium carbonate 300 mg tablet 300 mg PO DAILY@1700 clonidine HCl 0.1 mg tablet 1 tab PO TID benztropine 0.5 mg tablet 1 tab PO BID haloperidol decanoate 100 mg/mL solution 100 mg IM Q4W ferrous sulfate 325 mg (65 mg iron) tablet,delayed release (DR/EC) 1 tab PO DAILY duloxetine 60 mg capsule,delayed release(DR/EC) 1 cap PO DAILY docusate sodium 100 mg Capsule 100 mg PO BID 30 Days Qty: 60 0RF Rx Instructions: HOLD FOR LOOSE STOOL cetirizine 10 mg tablet 1 tab PO DAILY fluticasone propion-salmeterol [Advair HFA] 230-21 mcg/actuation HFA aerosol inhaler 2 puff INHALATION BID prazosin 1 mg capsule 1 mg PO BEDTIME trazodone 100 mg tablet 200 mg PO BEDTIME PRN (Reason: Insomnia)
== END 2023-01-08 11:45 | disposition home or self-care (01) ==
PROVIDERS: Emergency Provider Emergency Medicine; PCP Pediatrics
DX: Z48.02 Encounter for removal of sutures (principal); S51.812D Laceration without foreign body of left forearm, subsequent encounter; S81.012D Laceration without foreign body, left knee, subsequent encounter; X78.9XXD Intentional self-harm by unspecified sharp object, subsequent encounter
CPT/HCPCS: 99282

== ENCOUNTER → 2023-01-13 05:57 | Day surgery (SDC) | payer OTHER, SELFPAY ==
[2023-01-13 06:27] VITALS: BP 141/82; PULSE 85; RESP 20; TEMP 36.3; O2SAT 100; BMI 42.4
--- NOTE | 2023-01-13 07:46 | PM.ANESPN ---
Subjective Subjective Date of Service: 01/13/23 Patient reports: other (refusing urine drug test) Physical Exam Vital Signs: Vital Signs: Last Vital Signs Temp 97.4 F 01/13/23 06:27 Pulse 85 01/13/23 06:27 Resp 20 01/13/23 06:27 BP 141/82 H 01/13/23 06:27 Pulse Ox 100 01/13/23 06:27 O2 Del Method Room Air 01/13/23 06:27 BMI result Body Mass Index 42.4 Progress Note: A&P Assessment and plan Plan pt here for ECT, positive in the past for cocaine. spoke to lulu regarding comcern doing anesthesia. another test done on previous visit to help confirm if cocaine positive not related to current medications taken. pt today refusing urine drug test, and upset. lulu planning to meet with her tomorrow as outpt. to work on a plan Time Spent With Patient Time: Total time managing care of this patient today ____ minutes. Procedures Date of Service Date of Service: 01/13/23
--- NOTE | 2023-01-13 08:57 | P.EN_ITS ---
Event Note Date of Service: 01/13/23 Event Note: pt came in for ECT. refusing to take urine drug screen. positive in past thought to be secondary to current trazodone use. lulu to meet [facility] patient in outpt setting. mariam is anestheia with unknow substance mixed with fentanyl. kaitlin aware. pt also aware of concerns, Time Spent With Patient Time: Total time managing care of this patient today ____ minutes.
== END ==
PROVIDERS: PCP Pediatrics; Visit Provider Psychiatry & Neurology Psychiatry
DX: F33.3 Major depressive disorder, recurrent, severe with psychotic symptoms (principal); Z53.8 Procedure and treatment not carried out for other reasons
CPT/HCPCS: 99499; J1642

== ENCOUNTER 2023-01-15 12:46 | Outpatient (REF) | payer OTHER, SELFPAY ==
[2023-01-25 10:42] LABS: Fentanyl, Ur NEGATIVE; Norfentanyl, Ur NEGATIVE
== END 2023-01-15 12:47 | disposition home or self-care (01) ==
LOC: HO.WFDLDS 12:46
PROVIDERS: Visit Provider Psychiatry & Neurology Psychiatry
DX: F25.1 Schizoaffective disorder, depressive type (principal); F43.12 Post-traumatic stress disorder, chronic
CPT/HCPCS: 80354

== ENCOUNTER 2023-01-20 07:51 | Day surgery (SDC) | payer OTHER, SELFPAY ==
--- NOTE | 2023-01-20 12:08 | P.CONAN_ITS ---
HPI - Anesthesia Eval Consult details Narrative: Schizoaffective disorder, depressive type PMFSH Active Problems Active Problems: All Active Problems (Updated 01/09/23 @ 00:01 by Adiel Sevilla) Injury of ligament of right knee (Acute) Sprain of anterior cruciate ligament of right knee (Acute) Hernia (Chronic) Schizoaffective disorder, depressive type (Chronic) Sprain of left foot (Acute) COVID-19 (Acute) COVID-19 (Acute) Chronic post-traumatic stress disorder (PTSD) (Chronic) Increased BMI (Acute) GERD (gastroesophageal reflux disease) (Acute) Borderline personality disorder (Chronic) Past Medical History Medical History Acute post-traumatic stress disorder Adjustment disorder Anxiety Asthma Borderline personality disorder Chronic post-traumatic stress disorder (PTSD) COPD (chronic obstructive pulmonary disease) Depression GERD (gastroesophageal reflux disease) History of electroconvulsive therapy Increased BMI Injury, self-inflicted Intentional self-harm PTSD (post-traumatic stress disorder) Recurrent major depression-severe Schizoaffective disorder Self-harming behavior Suicidal ideation Suicidal ideation Family History Family History Mother Brain cancer Other No family history of cardiac disease Family history of problems with anesthesia: No Surgical History History of Problems with Anesthesia: No Social History Social History Household Members: Other Household Members Other:: [facility] Housing: Assisted Living Facility Housing Other:: [facility] Do you presently have visiting nurse or other home services: No Alcohol intake: current Alcohol intake frequency: does not drink Patient Tobacco Use Status: Current everyday Tobacco user Tobacco use type: Cigarette Cigarette Packs Per Day: 0.5 Cigarettes Per Day: 10.0 Years Smoked: 20 e-Cigarette/Vaping Use: Never Used Second Hand Smoke Exposure: Yes Substance Use Type: Marijuana Advance Directives: No Advance Directives Information Provided: Yes service: No Sexual orientation: Straight/Heterosexual Meds Allergies Allergy/AdvReac Type Severity Reaction Status Date / Time carbamazepine [From TEGRETOL] AdvReac Mild Nausea and Verified 01/08/23 11:02 Vomiting topiramate [From Topamax] AdvReac Mild Nausea and Verified 01/08/23 11:02 Vomiting Home Medications Medication Instructions Recorded Confirmed Last Taken Type acetaminophen 500 mg tablet 1 tab PO Q6H PRN pain 08/14/22 12/28/22 Unknown History albuterol sulfate 90 mcg/actuation 2 puff inhalation BID PRN Wheezing 08/14/22 12/28/22 Unknown History aerosol inhaler (ProAir HFA) diphenhydramine HCl 50 mg capsule 2 cap PO BEDTIME 08/14/22 12/28/22 Unknown History (Banophen) haloperidol 5 mg tablet 1 tab PO TID PRN Agitation 08/14/22 12/28/22 Unknown History hydroxyzine pamoate 50 mg capsule 1 cap PO BID PRN Anxiety 08/14/22 12/28/22 Unknown History nicotine (polacrilex) 2 mg gum 2 mg buccal Q2H PRN Smoking 08/14/22 12/28/22 Unknown History Cessation omeprazole 20 mg tablet,delayed 20 mg PO DAILY 08/14/22 12/28/22 Unknown History release zolpidem 10 mg tablet 1 tab PO BEDTIME 08/14/22 12/28/22 Unknown History cetirizine 10 mg tablet 1 tab PO DAILY 10/07/22 12/28/22 Unknown History fluticasone propionate 230 2 puff inhalation BID 10/07/22 12/28/22 Unknown History mcg-salmeterol 21 mcg/actuation HFA inhaler (Advair HFA) benztropine 0.5 mg tablet 1 tab PO BID 10/26/22 12/28/22 Unknown History clonidine HCl 0.1 mg tablet 1 tab PO TID 10/26/22 12/28/22 Unknown History duloxetine 60 mg capsule,delayed 1 cap PO DAILY 10/26/22 12/28/22 Unknown History release ferrous sulfate 325 mg (65 mg 1 tab PO DAILY 10/26/22 12/28/22 Unknown History iron) tablet,delayed release haloperidol decanoate 100 mg/mL 100 mg IM Q4W 10/26/22 12/28/22 12/16/22 History intramuscular solution lithium carbonate 300 mg tablet 300 mg PO DAILY@1700 10/26/22 12/28/22 Unknown History prazosin 1 mg capsule 1 mg PO BEDTIME 12/25/22 12/28/22 Unknown History trazodone 100 mg tablet 200 mg PO BEDTIME PRN Insomnia 12/25/22 12/28/22 Unknown History Exam Exam Date and Time: January 20, 2023 1208 Airway Mallampati Class: III TM Dist: >3cm Neck ROM: Full Loose/Missing/Broken Teeth: Yes (poor dentition globally) Heart: [id number] Lungs: cta b/l Assessment and Plan Assessment Anesthesia Assessment: Anesthesia Plan Discussed and Chart Reviewed Final Anesthetic Review Family History of Problems with Anesthesia: No History of Problems with Anesthesia: No NPO: Yes ASA Class: III Final Preanesthetic Review: No Changes in Pt Med Stat, Meds/Allgs Chart Reviewed, Consent Obtained/Reviewed and Anes Risks/Benef Reviewed Patient Risk: Intermediate Procedure Risk: Intermediate Assessment/Block/Sedation in SS: Assess/Block/Sedation-SS Anesthetic Plan Anesthetic Plan: GA and Agree w/ Assess. and Plan Disposition: Standard PACU
--- NOTE | 2023-01-20 12:33 | MHC.SHP ---
Pre-Procedural Eval Section A Date of Service: 01/20/23 The patient is an INPATIENT: No Changes since office visit: Yes Cold of Flu in the past 2 weeks, Yes New Medical Problems, Yes Changes in Medication and Yes Patient answered all questions The History & Physical has been completed within 30 days and I have reviewed it.: Yes Section B Chief Complaint: depression disorder Allergies: Allergies Allergy/AdvReac Type Severity Reaction Status Date / Time carbamazepine [From TEGRETOL] AdvReac Mild Nausea and Verified 01/08/23 11:02 Vomiting topiramate [From Topamax] AdvReac Mild Nausea and Verified 01/08/23 11:02 Vomiting Plan I have reviewed the history and physical and performed a pertinent physical examination on my patient. No changes have occurred unless specified. Time Spent With Patient Time: Total time managing care of this patient today ____ minutes.
--- NOTE | 2023-01-20 12:46 | HO.ECTPROC ---
ECT Procedure Note Diagnosis/Treatment Date of Service: 01/20/23 Diagnosis: Schizoaffective Disorder Previous ECT Date: 12/30/22 Treatment: Maintenance Interval Clinical Notes: The patient reported dysphoria, with self harming behaviors at times. Currently no suicidal thoughts but reports dysphoria. Time: Total time managing care of this patient today __20__ minutes. ECT Settings Device: THYMATRON DGx Electrode Placement: Bitemporal Program/Pulse Width: 0.50 Energy Percent: 100 Seizure Duration By EEG (in seconds): 24 By Motor Observation (in seconds): 23 Medications Administration General Anesthetic: Etomidate (14) Muscle Relaxant: Succinylcholine (100) Ancillary Medications Analgesics: Torodol - Pre ECT Anti-emetics: Zofran - Pre ECT Airway Management Airway Management: Bag Mask Ventilation Treatment Recommendations No Changes Recommended: No change Pt Tolerated Procedure w/o Issue: Yes
[2023-01-20 12:51] VITALS: BP 125/92; PULSE 95; RESP 16; TEMP 36.2; O2SAT 95
[2023-01-20 12:55] VITALS: BP 120/77; PULSE 95; RESP 16; O2SAT 95
[2023-01-20 13:00] VITALS: BP 121/86; PULSE 91; RESP 16; O2SAT 95
[2023-01-20 13:25] VITALS: BP 106/71; PULSE 88; RESP 16; O2SAT 95
[2023-01-20 13:48] VITALS: BP 110/72; PULSE 82; RESP 16; TEMP 36.4; O2SAT 95
--- NOTE | 2023-01-20 13:52 | PC.NURSE ---
patient port deaccessed, gauze and tape applied. Discharged to staff from care home
== END 2023-01-20 13:56 | disposition home or self-care (01) ==
PROVIDERS: PCP Pediatrics; Visit Provider Psychiatry & Neurology Psychiatry
PROC: (CPT 90870; principal; 2023-01-20 11:00)
DX: F25.9 Schizoaffective disorder, unspecified (principal); R45.88 Nonsuicidal self-harm; F32.81 Premenstrual dysphoric disorder
CPT/HCPCS: 90870; J0330; J1642; J1885; J2405

== ENCOUNTER 2023-01-27 05:56 | Day surgery (SDC) | payer OTHER, SELFPAY ==
[2023-01-27 06:34] VITALS: BP 117/67; PULSE 83; RESP 16; TEMP 36.4; O2SAT 96; BMI 41.4
--- NOTE | 2023-01-27 07:09 | P.CONAN_ITS ---
[facility] Active Problems Active Problems: All Active Problems (Updated 01/09/23 @ 00:01 by Adiel Sevilla) Injury of ligament of right knee (Acute) Sprain of anterior cruciate ligament of right knee (Acute) Hernia (Chronic) Schizoaffective disorder, depressive type (Chronic) Sprain of left foot (Acute) COVID-19 (Acute) COVID-19 (Acute) Chronic post-traumatic stress disorder (PTSD) (Chronic) Increased BMI (Acute) GERD (gastroesophageal reflux disease) (Acute) Borderline personality disorder (Chronic) Past Medical History Medical History Acute post-traumatic stress disorder Adjustment disorder Anxiety Asthma Borderline personality disorder Chronic post-traumatic stress disorder (PTSD) COPD (chronic obstructive pulmonary disease) Depression GERD (gastroesophageal reflux disease) History of electroconvulsive therapy Increased BMI Injury, self-inflicted Intentional self-harm PTSD (post-traumatic stress disorder) Recurrent major depression-severe Schizoaffective disorder Self-harming behavior Suicidal ideation Suicidal ideation Family History Family History Mother Brain cancer Other No family history of cardiac disease Family history of problems with anesthesia: No Surgical History History of Problems with Anesthesia: No Social History Social History Household Members: Other Household Members Other:: [facility] Housing: Assisted Living Facility Housing Other:: [facility] Do you presently have visiting nurse or other home services: No Alcohol intake: current Alcohol intake frequency: does not drink Patient Tobacco Use Status: Current everyday Tobacco user Tobacco use type: Cigarette Cigarette Packs Per Day: 0.5 Cigarettes Per Day: 10.0 Years Smoked: 20 e-Cigarette/Vaping Use: Never Used Second Hand Smoke Exposure: Yes Substance Use Type: Marijuana Advance Directives: No Advance Directives Information Provided: Yes service: No Sexual orientation: Straight/Heterosexual Meds Allergies Allergy/AdvReac Type Severity Reaction Status Date / Time carbamazepine [From TEGRETOL] AdvReac Mild Nausea and Verified 01/08/23 11:02 Vomiting topiramate [From Topamax] AdvReac Mild Nausea and Verified 01/08/23 11:02 Vomiting Home Medications Medication Instructions Recorded Confirmed Last Taken Type acetaminophen 500 mg tablet 1 tab PO Q6H PRN pain 08/14/22 12/28/22 Unknown History albuterol sulfate 90 mcg/actuation 2 puff inhalation BID PRN Wheezing 08/14/22 12/28/22 Unknown History aerosol inhaler (ProAir HFA) diphenhydramine HCl 50 mg capsule 2 cap PO BEDTIME 08/14/22 12/28/22 Unknown History (Banophen) haloperidol 5 mg tablet 1 tab PO TID PRN Agitation 08/14/22 12/28/22 Unknown History hydroxyzine pamoate 50 mg capsule 1 cap PO BID PRN Anxiety 08/14/22 12/28/22 Unknown History nicotine (polacrilex) 2 mg gum 2 mg buccal Q2H PRN Smoking 08/14/22 12/28/22 Unknown History Cessation omeprazole 20 mg tablet,delayed 20 mg PO DAILY 08/14/22 12/28/22 Unknown History release zolpidem 10 mg tablet 1 tab PO BEDTIME 08/14/22 12/28/22 Unknown History cetirizine 10 mg tablet 1 tab PO DAILY 10/07/22 12/28/22 Unknown History fluticasone propionate 230 2 puff inhalation BID 10/07/22 12/28/22 Unknown History mcg-salmeterol 21 mcg/actuation HFA inhaler (Advair HFA) benztropine 0.5 mg tablet 1 tab PO BID 10/26/22 12/28/22 Unknown History clonidine HCl 0.1 mg tablet 1 tab PO TID 10/26/22 12/28/22 Unknown History duloxetine 60 mg capsule,delayed 1 cap PO DAILY 10/26/22 12/28/22 Unknown History release ferrous sulfate 325 mg (65 mg 1 tab PO DAILY 10/26/22 12/28/22 Unknown History iron) tablet,delayed release haloperidol decanoate 100 mg/mL 100 mg IM Q4W 10/26/22 12/28/22 12/16/22 History intramuscular solution lithium carbonate 300 mg tablet 300 mg PO DAILY@1700 10/26/22 12/28/22 Unknown History prazosin 1 mg capsule 1 mg PO BEDTIME 12/25/22 12/28/22 Unknown History trazodone 100 mg tablet 200 mg PO BEDTIME PRN Insomnia 12/25/22 12/28/22 Unknown History Exam Exam Date and Time: January 27, 2023 0709 Height,Weight and Vital Signs: Height 4 ft 11 in Weight 92.986 kg Last Vital Signs Temp 97.5 F 01/27/23 06:34 Pulse 83 01/27/23 06:34 Resp 16 01/27/23 06:34 BP 117/67 01/27/23 06:34 Pulse Ox 96 01/27/23 06:34 O2 Del Method Room Air 01/27/23 06:34 Airway Mallampati Class: II TM Dist: >3cm Neck ROM: Full Heart: rrr Lungs: cta Assessment and Plan Assessment Anesthesia Assessment: Anesthesia Plan Discussed and Chart Reviewed Final Anesthetic Review Family History of Problems with Anesthesia: No History of Problems with Anesthesia: No NPO: Yes ASA Class: III Final Preanesthetic Review: No Changes in Pt Med Stat, Meds/Allgs Chart Reviewed and Consent Obtained/Reviewed Patient Risk: Intermediate Procedure Risk: Intermediate Anesthetic Plan Anesthetic Plan: GA Disposition: Standard PACU
[2023-01-27 08:36] VITALS: BP 140/67; PULSE 98; RESP 20; TEMP 36.8; O2SAT 99
[2023-01-27 08:41] VITALS: BP 140/67; PULSE 93; RESP 20; O2SAT 96
[2023-01-27 08:46] VITALS: BP 110/80; PULSE 93; RESP 20; O2SAT 97
[2023-01-27 08:51] VITALS: BP 125/66; PULSE 87; RESP 20; O2SAT 95
[2023-01-27 09:10] VITALS: BP 126/63; PULSE 81; RESP 18; TEMP 36.4; O2SAT 96
--- NOTE | 2023-01-27 23:00 | HO.ECTPROC ---
ECT Procedure Note Diagnosis/Treatment Date of Service: 01/27/23 Diagnosis: Major Depressive Disorder and Other Previous ECT Date: 12/30/22 Treatment: Maintenance Interval Clinical Notes: pt neg for fentanyl cont to state ect helpful no cognitive changes noted Time: Total time managing care of this patient today ____ minutes. ECT Settings Device: THYMATRON DGx Electrode Placement: Bitemporal Program/Pulse Width: 0.50 Energy Percent: 100 Seizure Duration By EEG (in seconds): 22 Medications Administration General Anesthetic: Etomidate (14) Muscle Relaxant: Succinylcholine (100) Ancillary Medications Anti-emetics: Zofran - Pre ECT Airway Management Airway Management: Bag Mask Ventilation Treatment Recommendations No Changes Recommended: No change Notes: f/u tx 2 weeks Pt Tolerated Procedure w/o Issue: Yes
--- NOTE | 2023-02-10 08:33 | HO.ECTPROC ---
ECT Procedure Note Diagnosis/Treatment Date of Service: 01/27/23 Diagnosis: Other Treatment: Maintenance Interval Clinical Notes: pt more agitated tammy for fentanyl Time: Total time managing care of this patient today ____ minutes. ECT Settings Device: THYMATRON DGx Electrode Placement: Bitemporal Program/Pulse Width: 0.50 Energy Percent: 100 Seizure Duration By EEG (in seconds): 22 Medications Administration General Anesthetic: Etomidate (14) Muscle Relaxant: Succinylcholine (100) Ancillary Medications Anti-emetics: Zofran - Pre ECT Airway Management Airway Management: Bag Mask Ventilation Treatment Recommendations No Changes Recommended: No change Notes: f/u 2 weeks Pt Tolerated Procedure w/o Issue: Yes
== END 2023-01-27 09:27 | disposition home or self-care (01) ==
PROVIDERS: PCP Pediatrics; Visit Provider Psychiatry & Neurology Psychiatry
PROC: (CPT 90870; principal; 2023-01-27 15:00)
DX: F25.1 Schizoaffective disorder, depressive type (principal); F43.12 Post-traumatic stress disorder, chronic; F60.3 Borderline personality disorder; G47.34 Idiopathic sleep related nonobstructive alveolar hypoventilation; G47.33 Obstructive sleep apnea (adult) (pediatric); R45.81 Low self-esteem; Z72.89 Other problems related to lifestyle; J44.9 Chronic obstructive pulmonary disease, unspecified; K21.9 Gastro-esophageal reflux disease without esophagitis; Z79.51 Long term (current) use of inhaled steroids; Z79.899 Other long term (current) drug therapy; Z88.8 Allergy status to other drugs, medicaments and biological substances; F17.210 Nicotine dependence, cigarettes, uncomplicated; F12.90 Cannabis use, unspecified, uncomplicated
CPT/HCPCS: 90870; J0330; J1642; J1885; J2405

== ENCOUNTER 2023-02-10 05:56 | Day surgery (SDC) | payer OTHER, SELFPAY ==
[2023-02-10] VITALS (7 sets, daily range): BP systolic 108–140; BP diastolic 65–79; PULSE 76–93; RESP 16–23; TEMP 36.2–36.9; O2SAT 92–97; BMI 40.4
--- NOTE | 2023-02-10 07:04 | HO.ANESPROP2 ---
[facility] Active Problems Active Problems: All Active Problems (Updated 01/09/23 @ 00:01 by Adiel Sevilla) Injury of ligament of right knee (Acute) Sprain of anterior cruciate ligament of right knee (Acute) Hernia (Chronic) Schizoaffective disorder, depressive type (Chronic) Sprain of left foot (Acute) COVID-19 (Acute) COVID-19 (Acute) Chronic post-traumatic stress disorder (PTSD) (Chronic) Increased BMI (Acute) GERD (gastroesophageal reflux disease) (Acute) Borderline personality disorder (Chronic) Past Medical History Medical History Acute post-traumatic stress disorder Adjustment disorder Anxiety Asthma Borderline personality disorder Chronic post-traumatic stress disorder (PTSD) COPD (chronic obstructive pulmonary disease) Depression GERD (gastroesophageal reflux disease) History of electroconvulsive therapy Increased BMI Injury, self-inflicted Intentional self-harm PTSD (post-traumatic stress disorder) Recurrent major depression-severe Schizoaffective disorder Self-harming behavior Suicidal ideation Suicidal ideation Family History Family History Mother Brain cancer Other No family history of cardiac disease Family history of problems with anesthesia: No Surgical History History of Problems with Anesthesia: No Social History Social History Household Members: Other Household Members Other:: custodial Housing: Assisted Living Facility Housing Other:: custodial Do you presently have visiting nurse or other home services: No Alcohol intake: current Alcohol intake frequency: does not drink Patient Tobacco Use Status: Current everyday Tobacco user Tobacco use type: Cigarette Cigarette Packs Per Day: 0.5 Cigarettes Per Day: 10.0 Years Smoked: 20 e-Cigarette/Vaping Use: Never Used Second Hand Smoke Exposure: Yes Substance Use Type: Marijuana Advance Directives: No Advance Directives Information Provided: Yes service: No Sexual orientation: Straight/Heterosexual Meds Allergies Allergy/AdvReac Type Severity Reaction Status Date / Time carbamazepine [From TEGRETOL] AdvReac Mild Nausea and Verified 01/08/23 11:02 Vomiting topiramate [From Topamax] AdvReac Mild Nausea and Verified 01/08/23 11:02 Vomiting Home Medications Medication Instructions Recorded Confirmed Last Taken Type acetaminophen 500 mg tablet 1 tab PO Q6H PRN pain 08/14/22 12/28/22 Unknown History albuterol sulfate 90 mcg/actuation 2 puff inhalation BID PRN Wheezing 08/14/22 12/28/22 Unknown History aerosol inhaler (ProAir HFA) diphenhydramine HCl 50 mg capsule 2 cap PO BEDTIME 08/14/22 12/28/22 Unknown History (Banophen) haloperidol 5 mg tablet 1 tab PO TID PRN Agitation 08/14/22 12/28/22 Unknown History hydroxyzine pamoate 50 mg capsule 1 cap PO BID PRN Anxiety 08/14/22 12/28/22 Unknown History nicotine (polacrilex) 2 mg gum 2 mg buccal Q2H PRN Smoking 08/14/22 12/28/22 Unknown History Cessation omeprazole 20 mg tablet,delayed 20 mg PO DAILY 08/14/22 12/28/22 Unknown History release zolpidem 10 mg tablet 1 tab PO BEDTIME 08/14/22 12/28/22 Unknown History cetirizine 10 mg tablet 1 tab PO DAILY 10/07/22 12/28/22 Unknown History fluticasone propionate 230 2 puff inhalation BID 10/07/22 12/28/22 Unknown History mcg-salmeterol 21 mcg/actuation HFA inhaler (Advair HFA) benztropine 0.5 mg tablet 1 tab PO BID 10/26/22 12/28/22 Unknown History clonidine HCl 0.1 mg tablet 1 tab PO TID 10/26/22 12/28/22 Unknown History duloxetine 60 mg capsule,delayed 1 cap PO DAILY 10/26/22 12/28/22 Unknown History release ferrous sulfate 325 mg (65 mg 1 tab PO DAILY 10/26/22 12/28/22 Unknown History iron) tablet,delayed release haloperidol decanoate 100 mg/mL 100 mg IM Q4W 10/26/22 12/28/22 12/16/22 History intramuscular solution lithium carbonate 300 mg tablet 300 mg PO DAILY@1700 10/26/22 12/28/22 Unknown History prazosin 1 mg capsule 1 mg PO BEDTIME 12/25/22 12/28/22 Unknown History trazodone 100 mg tablet 200 mg PO BEDTIME PRN Insomnia 12/25/22 12/28/22 Unknown History Exam Exam Date and Time: February 10, 2023 07 Height,Weight and Vital Signs: Height 4 ft 11 in Weight 90.718 kg Last Vital Signs Temp 97.1 F 02/10/23 06:43 Pulse 93 02/10/23 06:43 Resp 16 02/10/23 06:43 BP 132/79 02/10/23 06:43 Pulse Ox 97 02/10/23 06:43 O2 Del Method Room Air 02/10/23 06:43 Airway Mallampati Class: II TM Dist: >3cm Neck ROM: Full Heart: rrr Lungs: cta Assessment and Plan Assessment Anesthesia Assessment: Anesthesia Plan Discussed and Chart Reviewed Final Anesthetic Review Family History of Problems with Anesthesia: No History of Problems with Anesthesia: No NPO: Yes ASA Class: III Final Preanesthetic Review: No Changes in Pt Med Stat, Meds/Allgs Chart Reviewed and Consent Obtained/Reviewed Patient Risk: Intermediate Procedure Risk: Intermediate Anesthetic Plan Anesthetic Plan: GA Disposition: Standard PACU
--- NOTE | 2023-02-10 08:06 | MHC.SHP ---
Pre-Procedural Eval Section A Date of Service: 02/10/23 Section B Chief Complaint: Major depressive disorder, recurrent, severe with Details of Present Illness: feels better less labile no cognitive changes noted Relevant Social History: Other (specify) (marijuana) Present Medications: see Short Stay Collaborative assessment History of Previous Operations: Relevant previous surgery/procedure and date(s) (ect) Allergies: Allergies Allergy/AdvReac Type Severity Reaction Status Date / Time carbamazepine [From TEGRETOL] AdvReac Mild Nausea and Verified 01/08/23 11:02 Vomiting topiramate [From Topamax] AdvReac Mild Nausea and Verified 01/08/23 11:02 Vomiting Review of Systems Sugical H&P ROS: Negative: Cardiovascular and Respiratory (no sob) and Yes, Specify: Psychiatric (feels more stable less sib) and Integumentary (laceration) Exam Surgical H&P Exam: Normal: Heart and Normal: Lungs and Significant Findings: Extremities ( old laceration scars) Plan Diagnosis/Plan: Unchanged I have reviewed the history and physical and performed a pertinent physical examination on my patient. No changes have occurred unless specified. Time Spent With Patient Time: Total time managing care of this patient today ____ minutes.
--- NOTE | 2023-02-10 08:23 | HO.ECTPROC ---
ECT Procedure Note Diagnosis/Treatment Date of Service: 02/10/23 Diagnosis: Major Depressive Disorder and Other (ptsd) Previous ECT Date: 01/27/23 Interval Clinical Notes: pt feeling better Time: Total time managing care of this patient today ____ minutes. ECT Settings Device: THYMATRON DGx Electrode Placement: Bitemporal Program/Pulse Width: 0.50 Energy Percent: 100 Seizure Duration By EEG (in seconds): 22 Medications Administration General Anesthetic: Etomidate Muscle Relaxant: Succinylcholine (100) Ancillary Medications Anti-emetics: Zofran - Pre ECT Airway Management Airway Management: Bag Mask Ventilation Treatment Recommendations No Changes Recommended: No change Program/Pulse Width: 0.50 Pt Tolerated Procedure w/o Issue: Yes
== END 2023-02-10 09:41 | disposition home or self-care (01) ==
PROVIDERS: PCP Pediatrics; Visit Provider Psychiatry & Neurology Psychiatry
PROC: (CPT 90870; principal; 2023-02-10 08:00)
DX: F33.2 Major depressive disorder, recurrent severe without psychotic features (principal); F25.1 Schizoaffective disorder, depressive type; F43.10 Post-traumatic stress disorder, unspecified; F60.3 Borderline personality disorder; J44.9 Chronic obstructive pulmonary disease, unspecified; K21.9 Gastro-esophageal reflux disease without esophagitis; Z79.51 Long term (current) use of inhaled steroids; Z79.899 Other long term (current) drug therapy; Z88.8 Allergy status to other drugs, medicaments and biological substances; F17.210 Nicotine dependence, cigarettes, uncomplicated; F12.90 Cannabis use, unspecified, uncomplicated
CPT/HCPCS: 90870; J0330; J1642; J1885; J2405

== ENCOUNTER 2023-02-21 21:45 | Emergency (ER) | payer OTHER, SELFPAY ==
[2023-02-21 22:00] VITALS: BMI 41.4
--- NOTE | 2023-02-21 22:35 | ED.GENADULT ---
HPI - General Adult General Chief complaint: General Medical Stated complaint: depression Time Seen by Provider: 02/21/23 22:01 Source: patient Mode of arrival: ambulatory Limitations: no limitations History of Present Illness HPI narrative: Patient with history of depression borderline personality disorder self cutting behavior came from care home as she was cutting her left forearm with the same in the past staff wanted her to look at the wound patient feels stable at this time and will be going back to care home Related Data Home Medications Medication Instructions Recorded Confirmed acetaminophen 500 mg tablet 1 tab PO Q6H PRN pain 08/14/22 12/28/22 albuterol sulfate 90 mcg/actuation 2 puff inhalation BID PRN Wheezing 08/14/22 12/28/22 aerosol inhaler (ProAir HFA) diphenhydramine HCl 50 mg capsule 2 cap PO BEDTIME 08/14/22 12/28/22 (Banophen) haloperidol 5 mg tablet 1 tab PO TID PRN Agitation 08/14/22 12/28/22 hydroxyzine pamoate 50 mg capsule 1 cap PO BID PRN Anxiety 08/14/22 12/28/22 nicotine (polacrilex) 2 mg gum 2 mg buccal Q2H PRN Smoking 08/14/22 12/28/22 Cessation omeprazole 20 mg tablet,delayed 20 mg PO DAILY 08/14/22 12/28/22 release zolpidem 10 mg tablet 1 tab PO BEDTIME 08/14/22 12/28/22 cetirizine 10 mg tablet 1 tab PO DAILY 10/07/22 12/28/22 fluticasone propionate 230 2 puff inhalation BID 10/07/22 12/28/22 mcg-salmeterol 21 mcg/actuation HFA inhaler (Advair HFA) benztropine 0.5 mg tablet 1 tab PO BID 10/26/22 12/28/22 clonidine HCl 0.1 mg tablet 1 tab PO TID 10/26/22 12/28/22 duloxetine 60 mg capsule,delayed 1 cap PO DAILY 10/26/22 12/28/22 release ferrous sulfate 325 mg (65 mg 1 tab PO DAILY 10/26/22 12/28/22 iron) tablet,delayed release haloperidol decanoate 100 mg/mL 100 mg IM Q4W 10/26/22 12/28/22 intramuscular solution lithium carbonate 300 mg tablet 300 mg PO DAILY@1700 10/26/22 12/28/22 prazosin 1 mg capsule 1 mg PO BEDTIME 12/25/22 12/28/22 trazodone 100 mg tablet 200 mg PO BEDTIME PRN Insomnia 12/25/22 12/28/22 Previous Rx's Medication Instructions Recorded docusate sodium 100 mg capsule 100 mg PO BID 30 days #60 caps 09/01/22 Allergies Allergy/AdvReac Type Severity Reaction Status Date / Time carbamazepine [From TEGRETOL] AdvReac Mild Nausea and Verified 01/08/23 11:02 Vomiting topiramate [From Topamax] AdvReac Mild Nausea and Verified 01/08/23 11:02 Vomiting Review of Systems Review of Systems: Yes all other systems are reviewed and are negative PMFSH Past Medical History Medical History Acute post-traumatic stress disorder Adjustment disorder Anxiety Asthma Borderline personality disorder Chronic post-traumatic stress disorder (PTSD) COPD (chronic obstructive pulmonary disease) Depression GERD (gastroesophageal reflux disease) History of electroconvulsive therapy Increased BMI Injury, self-inflicted Intentional self-harm PTSD (post-traumatic stress disorder) Recurrent major depression-severe Schizoaffective disorder Self-harming behavior Suicidal ideation Suicidal ideation Family History Family History Mother Brain cancer Other No family history of cardiac disease Social History Social History Household Members: Other Household Members Other:: care home Housing: Assisted Living Facility Housing Other:: care home Do you presently have visiting nurse or other home services: No Alcohol intake: current Alcohol intake frequency: does not drink Patient Tobacco Use Status: Current everyday Tobacco user Tobacco use type: Cigarette Cigarette Packs Per Day: 0.5 Cigarettes Per Day: 10.0 Years Smoked: 20 e-Cigarette/Vaping Use: Never Used Second Hand Smoke Exposure: Yes Substance Use Type: Marijuana Advance Directives: No Advance Directives Information Provided: No service: No Sexual orientation: Straight/Heterosexual Physical Exam ED Vital Signs: BMI result Body Mass Index 41.4 Appearance: Alert. Oriented X3. No acute distress. Eyes: PERRLA, No Nystagmus ENT: Pharynx normal. Oral Mucosa moist Neck: Normal inspection. Neck supple. CVS: Normal heart rate and rhythm. Pulses normal. Respiratory: No respiratory distress. Equal air entry bilateral, no wheezing/rales/rhonchi Abdomen: Soft and nontender. Bowel sounds are present, no mass palpable, no CVA tenderness Skin: Skin warm and dry. Normal skin color. Normal skin turgor. Extremities: No lower extremity edema. No calf tenderness superficial lacerations left forearm psych: Mood is stable at this time no SI Neuro: Oriented X 3. No motor deficit. Procedures Laceration Laceration 1: Site: upper extremity (Forearm) Side (If applicable): left Size (cm): 3 Description: linear Depth: simple, single layer Skin layer closed with: other (Skin glue) Medical Decision Making Medical Decision Making [facility] Narrative: Patient from care home came for superficial lacerations on left forearm which was glued patient will be going to group as requested as has a care plan Discharge Plan Discharge Clinical Impression: Depression, Laceration of forearm, left Patient Disposition: Home, Self-Care Instructions: Laceration (ED), Depression (ED) Additional Instructions: Local care as advised Continue taking medication and follow-up with therapist Prescriptions: No Action haloperidol 5 mg tablet 1 tab PO TID PRN (Reason: Agitation) diphenhydramine HCl [Banophen] 50 mg capsule 2 cap PO BEDTIME hydroxyzine pamoate 50 mg capsule 1 cap PO BID PRN (Reason: Anxiety) zolpidem 10 mg tablet 1 tab PO BEDTIME acetaminophen 500 mg tablet 1 tab PO Q6H PRN (Reason: pain) albuterol sulfate [ProAir HFA] 90 mcg/actuation HFA aerosol inhaler 2 puff inhalation BID PRN (Reason: Wheezing) nicotine (polacrilex) 2 mg Gum 2 mg BUCCAL Q2H PRN (Reason: Smoking Cessation) omeprazole 20 mg Tablet,Delayed Release (Dr/Ec) 20 mg PO DAILY lithium carbonate 300 mg tablet 300 mg PO DAILY@1700 clonidine HCl 0.1 mg tablet 1 tab PO TID benztropine 0.5 mg tablet 1 tab PO BID haloperidol decanoate 100 mg/mL solution 100 mg IM Q4W ferrous sulfate 325 mg (65 mg iron) tablet,delayed release (DR/EC) 1 tab PO DAILY duloxetine 60 mg capsule,delayed release(DR/EC) 1 cap PO DAILY docusate sodium 100 mg Capsule 100 mg PO BID 30 Days Qty: 60 0RF Rx Instructions: HOLD FOR LOOSE STOOL cetirizine 10 mg tablet 1 tab PO DAILY fluticasone propion-salmeterol [Advair HFA] 230-21 mcg/actuation HFA aerosol inhaler 2 puff INHALATION BID prazosin 1 mg capsule 1 mg PO BEDTIME trazodone 100 mg tablet 200 mg PO BEDTIME PRN (Reason: Insomnia) Interventions: ED Discharge Assessment Last Done: 02/21/23 22:43 Discharge Date/Time: 02/21/23 22:47
== END 2023-02-21 22:47 | disposition home or self-care (01) ==
PROVIDERS: Emergency Provider Internal Medicine
DX: F33.1 Major depressive disorder, recurrent, moderate (principal); S51.812A Laceration without foreign body of left forearm, initial encounter; R45.851 Suicidal ideations; F25.9 Schizoaffective disorder, unspecified; X78.1XXA Intentional self-harm by knife, initial encounter; Y93.9 Activity, unspecified; Y92.9 Unspecified place or not applicable; Y99.9 Unspecified external cause status; Z79.899 Other long term (current) drug therapy; Z91.51 Personal history of suicidal behavior
CPT/HCPCS: 12002; 99282; 99284; S9485

== ENCOUNTER 2023-03-03 05:58 | Day surgery (SDC) | payer OTHER, SELFPAY ==
[2023-03-03] VITALS (7 sets, daily range): BP systolic 119–173; BP diastolic 77–96; PULSE 84–95; RESP 16–20; TEMP 36.1–36.3; O2SAT 95–97; BMI 42.4
--- NOTE | 2023-03-03 06:53 | P.CONAN_ITS ---
[facility]LY [facility], LATER [facility] Active Problems Active Problems: All Active Problems (Updated 02/22/23 @ 00:28 by Adiel Sevilla) Injury of ligament of right knee (Acute) Sprain of anterior cruciate ligament of right knee (Acute) Hernia (Chronic) Schizoaffective disorder, depressive type (Chronic) Sprain of left foot (Acute) COVID-19 (Acute) COVID-19 (Acute) Chronic post-traumatic stress disorder (PTSD) (Chronic) Increased BMI (Acute) GERD (gastroesophageal reflux disease) (Acute) Borderline personality disorder (Chronic) Past Medical History Medical History Acute post-traumatic stress disorder Adjustment disorder Anxiety Asthma Borderline personality disorder Chronic post-traumatic stress disorder (PTSD) COPD (chronic obstructive pulmonary disease) Depression GERD (gastroesophageal reflux disease) History of electroconvulsive therapy Increased BMI Injury, self-inflicted Intentional self-harm PTSD (post-traumatic stress disorder) Recurrent major depression-severe Schizoaffective disorder Self-harming behavior Suicidal ideation Suicidal ideation Family History Family History Mother Brain cancer Other No family history of cardiac disease Family history of problems with anesthesia: No Surgical History History of Problems with Anesthesia: No Social History Social History Household Members: Other Household Members Other:: nursing home Housing: Assisted Living Facility Housing Other:: nursing home Do you presently have visiting nurse or other home services: No Alcohol intake: current Alcohol intake frequency: does not drink Patient Tobacco Use Status: Current everyday Tobacco user Tobacco use type: Cigarette Cigarette Packs Per Day: 0.5 Cigarettes Per Day: 10.0 Years Smoked: 20 e-Cigarette/Vaping Use: Never Used Second Hand Smoke Exposure: Yes Substance Use Type: Marijuana Advance Directives: No Advance Directives Information Provided: Yes service: No Sexual orientation: Straight/Heterosexual Meds Allergies Allergy/AdvReac Type Severity Reaction Status Date / Time carbamazepine [From TEGRETOL] AdvReac Mild Nausea and Verified 01/08/23 11:02 Vomiting topiramate [From Topamax] AdvReac Mild Nausea and Verified 01/08/23 11:02 Vomiting Active Medications: Current Medications Lactated Ringer's (Lr) 1,000 mls @ 50 mls/hr IVCONT .Q20H [facility] Home Medications Medication Instructions Recorded Confirmed Last Taken Type acetaminophen 500 mg tablet 1 tab PO Q6H PRN pain 08/14/22 12/28/22 Unknown History albuterol sulfate 90 mcg/actuation 2 puff inhalation BID PRN Wheezing 08/14/22 12/28/22 Unknown History aerosol inhaler (ProAir HFA) diphenhydramine HCl 50 mg capsule 2 cap PO BEDTIME 08/14/22 12/28/22 Unknown History (Banophen) haloperidol 5 mg tablet 1 tab PO TID PRN Agitation 08/14/22 12/28/22 Unknown History hydroxyzine pamoate 50 mg capsule 1 cap PO BID PRN Anxiety 08/14/22 12/28/22 Unknown History nicotine (polacrilex) 2 mg gum 2 mg buccal Q2H PRN Smoking 08/14/22 12/28/22 Unknown History Cessation omeprazole 20 mg tablet,delayed 20 mg PO DAILY 08/14/22 12/28/22 Unknown History release zolpidem 10 mg tablet 1 tab PO BEDTIME 08/14/22 12/28/22 Unknown History cetirizine 10 mg tablet 1 tab PO DAILY 10/07/22 12/28/22 Unknown History fluticasone propionate 230 2 puff inhalation BID 10/07/22 12/28/22 Unknown History mcg-salmeterol 21 mcg/actuation HFA inhaler (Advair HFA) benztropine 0.5 mg tablet 1 tab PO BID 10/26/22 12/28/22 Unknown History clonidine HCl 0.1 mg tablet 1 tab PO TID 10/26/22 12/28/22 Unknown History duloxetine 60 mg capsule,delayed 1 cap PO DAILY 10/26/22 12/28/22 Unknown History release ferrous sulfate 325 mg (65 mg 1 tab PO DAILY 10/26/22 12/28/22 Unknown History iron) tablet,delayed release haloperidol decanoate 100 mg/mL 100 mg IM Q4W 10/26/22 12/28/22 12/16/22 History intramuscular solution lithium carbonate 300 mg tablet 300 mg PO DAILY@1700 10/26/22 12/28/22 Unknown History prazosin 1 mg capsule 1 mg PO BEDTIME 12/25/22 12/28/22 Unknown History trazodone 100 mg tablet 200 mg PO BEDTIME PRN Insomnia 12/25/22 12/28/22 Unknown History Exam Exam Date and Time: March 03, 2023 0653 Height,Weight and Vital Signs: Height 4 ft 11 in Weight 95.254 kg Last Vital Signs Temp 97 F 03/03/23 06:30 Pulse 87 03/03/23 06:30 Resp 18 03/03/23 06:30 BP 127/78 03/03/23 06:30 Pulse Ox 96 03/03/23 06:30 O2 Del Method Room Air 03/03/23 06:30 Airway Mallampati Class: II (missing a couple, denies any loose) TM Dist: >3cm Neck ROM: Full Heart: rrr Lungs: cta Assessment and Plan Assessment Anesthesia Assessment: Anesthesia Plan Discussed and Chart Reviewed Final Anesthetic Review Family History of Problems with Anesthesia: No History of Problems with Anesthesia: No NPO: Yes ASA Class: III Final Preanesthetic Review: No Changes in Pt Med Stat, Meds/Allgs Chart Reviewed and Consent Obtained/Reviewed Patient Risk: Intermediate Procedure Risk: Intermediate Anesthetic Plan Anesthetic Plan: GA Disposition: Standard PACU
--- NOTE | 2023-03-03 07:55 | P.HPSUR_ITS ---
Pre-Procedural Eval Section A Date of Service: 03/03/23 Section B Chief Complaint: Major depressive disorder, recurrent, severe with Details of Present Illness: recurrent depression ptsd Relevant Social History: None Present Medications: see Short Stay Collaborative assessment Medical History: Significant History (asthma) Allergies: Allergies Allergy/AdvReac Type Severity Reaction Status Date / Time carbamazepine [From TEGRETOL] AdvReac Mild Nausea and Verified 01/08/23 11:02 Vomiting topiramate [From Topamax] AdvReac Mild Nausea and Verified 01/08/23 11:02 Vomiting Review of Systems Sugical H&P ROS: Negative: Cardiovascular and Neurological and Yes, Specify: Res piratory (occ sob) and Psychiatric (better less sib) Exam Surgical H&P Exam: Normal: Heart and Normal: Lungs Plan Diagnosis/Plan: Unchanged I have reviewed the history and physical and performed a pertinent physical examination on my patient. No changes have occurred unless specified. Time Spent With Patient Time: Total time managing care of this patient today ____ minutes.
--- NOTE | 2023-03-03 07:57 | HO.ECTPROC ---
ECT Procedure Note Diagnosis/Treatment Date of Service: 03/03/23 Diagnosis: Major Depressive Disorder and Other (ptsd) Previous ECT Date: 01/27/23 Treatment: Maintenance Interval Clinical Notes: pt feeling better ongoing no cognitive complaints alert conversational verbal no delirium or confusion noted Time: Total time managing care of this patient today ____ minutes. ECT Settings Device: THYMATRON DGx Electrode Placement: Bitemporal Program/Pulse Width: 0.50 Energy Percent: 100 Seizure Duration By EEG (in seconds): 36 Medications Administration General Anesthetic: Etomidate (14) Muscle Relaxant: Succinylcholine (100) Ancillary Medications Anti-emetics: Zofran - Pre ECT Airway Management Airway Management: Bag Mask Ventilation Treatment Recommendations No Changes Recommended: No change Program/Pulse Width: 0.50 Notes: Etomidate was lower to 14 Pt Tolerated Procedure w/o Issue: Yes
== END 2023-03-03 09:42 | disposition home or self-care (01) ==
PROVIDERS: PCP Pediatrics; Visit Provider Psychiatry & Neurology Psychiatry
PROC: (CPT 90870; principal; 2023-03-03 07:30)
DX: F33.2 Major depressive disorder, recurrent severe without psychotic features (principal); F43.10 Post-traumatic stress disorder, unspecified; J45.909 Unspecified asthma, uncomplicated; Z88.8 Allergy status to other drugs, medicaments and biological substances
CPT/HCPCS: 90870; J0330; J1642; J1885; J2405

== ENCOUNTER → 2023-03-03 05:58 | Outpatient (BNV) | payer OTHER, SELFPAY | PROVIDERS: PCP Pediatrics; Visit Provider Psychiatry & Neurology Psychiatry | DX: F33.3 Major depressive disorder, recurrent, severe with psychotic symptoms (principal); F43.11 Post-traumatic stress disorder, acute | CPT/HCPCS: 90870 ==

== ENCOUNTER 2023-03-05 21:22 | Emergency (ER) | payer OTHER, SELFPAY ==
[2023-03-05 21:33] VITALS: BP 137/81; PULSE 98; O2SAT 96
[2023-03-05 21:41] VITALS: BMI 41.4
[2023-03-05 21:44] VITALS: BP 113/63; PULSE 86; RESP 14; TEMP 37.1; O2SAT 95
--- NOTE | 2023-03-05 21:44 | ECG_ITS ---
Test Reason : sob Blood Pressure : / mmHG Vent. Rate : 084 BPM Atrial Rate : 084 BPM P-R Int : 142 ms QRS Dur : 072 ms QT Int : 380 ms P-R-T Axes : 062 070 041 degrees QTc Int : 449 ms Normal sinus rhythm Possible Left atrial enlargement Borderline ECG When compared with ECG of 21-AUG-2022 14:48, No significant change was found Referred By: Rosi Barcenas Electronically Signed By:Phillip Alex
[2023-03-05 22:12] LABS: Appearance Urine Clear; Color Urine Yellow; Glucose Urine UA Negative (Negative); Leukocyte Esterase Urine Negative (Negative); Nitrite Urine Negative (Negative); Urine Blood Negative (Negative); Urine Ketones Negative (Negative); Urine Protein Negative (Neg-Trace)
[2023-03-05 22:29] LABS: Amphetamine Screen Urine Not Detected (Not Detect); Barbiturates, Urine Not Detected (Not Detect); Benzodiazepines Screen Urine Not Detected (Not Detect); Cannabinoid Screen Urine POSITIVE (Not Detect); Cocaine Screen Urine Not Detected (Not Detect); Fentanyl, urine Not Detected (Not Detect); Opiate Screen Urine Not Detected (Not Detect); Phencyclidine Screen Urine Not Detected (Not Detect)
--- NOTE | 2023-03-05 22:29 | ED_ITS ---
HPI - General Adult General Chief complaint: Nausea/Vomiting/Diarrhea Stated complaint: NAUSEA VOMITING Time Seen by Provider: 03/05/23 21:33 Source: patient Mode of arrival: EMS Limitations: no limitations History of Present Illness HPI narrative: Patient comes to the emergency room complaining of nausea vomiting diarrhea and chest tightness for 2 days. Patient states that today she is not here for crisis. Patient denies suicidal or homicidal ideation. Related Data Home Medications Medication Instructions Recorded Confirmed acetaminophen 500 mg tablet 1 tab PO Q6H PRN pain 08/14/22 12/28/22 albuterol sulfate 90 mcg/actuation 2 puff inhalation BID PRN Wheezing 08/14/22 12/28/22 aerosol inhaler (ProAir HFA) diphenhydramine HCl 50 mg capsule 2 cap PO BEDTIME 08/14/22 12/28/22 (Banophen) haloperidol 5 mg tablet 1 tab PO TID PRN Agitation 08/14/22 12/28/22 hydroxyzine pamoate 50 mg capsule 1 cap PO BID PRN Anxiety 08/14/22 12/28/22 nicotine (polacrilex) 2 mg gum 2 mg buccal Q2H PRN Smoking 08/14/22 12/28/22 Cessation omeprazole 20 mg tablet,delayed 20 mg PO DAILY 08/14/22 12/28/22 release zolpidem 10 mg tablet 1 tab PO BEDTIME 08/14/22 12/28/22 cetirizine 10 mg tablet 1 tab PO DAILY 10/07/22 12/28/22 fluticasone propionate 230 2 puff inhalation BID 10/07/22 12/28/22 mcg-salmeterol 21 mcg/actuation HFA inhaler (Advair HFA) benztropine 0.5 mg tablet 1 tab PO BID 10/26/22 12/28/22 clonidine HCl 0.1 mg tablet 1 tab PO TID 10/26/22 12/28/22 duloxetine 60 mg capsule,delayed 1 cap PO DAILY 10/26/22 12/28/22 release ferrous sulfate 325 mg (65 mg 1 tab PO DAILY 10/26/22 12/28/22 iron) tablet,delayed release haloperidol decanoate 100 mg/mL 100 mg IM Q4W 10/26/22 12/28/22 intramuscular solution lithium carbonate 300 mg tablet 300 mg PO DAILY@1700 10/26/22 12/28/22 prazosin 1 mg capsule 1 mg PO BEDTIME 12/25/22 12/28/22 trazodone 100 mg tablet 200 mg PO BEDTIME PRN Insomnia 12/25/22 12/28/22 Previous Rx's Medication Instructions Recorded docusate sodium 100 mg capsule 100 mg PO BID 30 days #60 caps 09/01/22 Allergies Allergy/AdvReac Type Severity Reaction Status Date / Time carbamazepine [From TEGRETOL] AdvReac Mild Nausea and Verified 01/08/23 11:02 Vomiting topiramate [From Topamax] AdvReac Mild Nausea and Verified 01/08/23 11:02 Vomiting Review of Systems Review of Systems: Constitutional : No Weight loss, No Fever, No Chills, No Night Sweats, No Fatigue, No Malaise ENT/Mouth : No Hearing loss, No Ear Pain, No Nasal Congestion, No Sinus Pain, No Hoarseness, No sore throat, No Rhinorrhea, No Swallowing Difficulty Eyes: No Eye Pain, No Swelling, No Redness, No Foreign Body, No Discharge, No Vision Changes Cardiovascular : Complaining of chest tightness, No Chest Pain, No SOB, No Dyspnea on Exertion, No Orthopnea, No Edema, No Palpitations Respiratory : No Cough, No Sputum, No Wheezing, No Smoke Exposure, No Dyspnea Gastrointestinal : Complaining of nausea vomiting diarrhea, no constipation, no significant abdominal pain Genitourinary : no irregular bleeding, No Dysuria, No Urinary Frequency, No Hematuria, No Urinary Incontinence, No Urgency, No Flank Pain, No Urinary Flow Changes, No Hesitancy Musculoskeletal : No joint pain, No Myalgias, No Joint Swelling Skin : No Skin Lesions, No rash Neuro : No Weakness, No Numbness, No Paresthesias, No Loss of Consciousness, No Dizziness, No Headache Psych : No Anxiety/Panic, No Depression, No SI/HI/AH/VH, No Social Issues, Heme/Lymph: No Bruising, No Bleeding,No Lymphadenopathy Endocrine : No Polyuria, No Polydipsia, No Temperature Intolerance PMFSH Past Medical History Medical History Acute post-traumatic stress disorder Adjustment disorder Anxiety Asthma Borderline personality disorder Chronic post-traumatic stress disorder (PTSD) COPD (chronic obstructive pulmonary disease) Depression GERD (gastroesophageal reflux disease) History of electroconvulsive therapy Increased BMI Injury, self-inflicted Intentional self-harm PTSD (post-traumatic stress disorder) Recurrent major depression-severe Schizoaffective disorder Self-harming behavior Suicidal ideation Suicidal ideation Family History Family History Mother Brain cancer Other No family history of cardiac disease Social History Social History Household Members: Other Household Members Other:: [facility] Housing: [facility]isted Living Facility Housing Other:: [facility] Do you presently have visiting nurse or other home services: No Alcohol intake: current Alcohol intake frequency: does not drink Patient Tobacco Use Status: Current everyday Tobacco user Tobacco use type: Cigarette Cigarette Packs Per Day: 0.5 Cigarettes Per Day: 10.0 Years Smoked: 20 Smoked in Last 30 Days: Yes e-Cigarette/Vaping Use: Never Used Second Hand Smoke Exposure: Yes Use of substances other than those prescribed or required for medical reasons: No Substance Use Type: Marijuana Advance Directives: No Advance Directives Information Provided: Yes Patient : No service: No Sexual orientation: Straight/Heterosexual Physical Exam ED Vital Signs: Vital Signs - 24 hr 03/05/23 21:44 03/06/23 00:47 Temperature 98.7 F 98.3 F Pulse Rate 86 70 Respiratory Rate 14 12 Blood Pressure 113/63 111/54 L Pulse Oximetry 95 98 Oxygen Delivery Method Room Air Room Air BMI result Body Mass Index 41.4 Const Other: Appearance: Alert. Oriented X3. No acute distress. Eyes: Pupils equal, round and reactive to light. ENT: Pharynx normal. Neck: Normal inspection. Neck supple. No lymph nodes noted. No crepitus CVS: Normal heart rate and rhythm. Pulses normal. Normal S1 and S2, reproducible chest pain to palpation Respiratory: No respiratory distress. Breath sounds normal. No Wheezing. No rales Abdomen: Soft and nontender. No rigidity. No distention. Skin: Skin warm and dry. Normal skin color. Normal skin turgor. Extremities: No lower extremity edema. No Lacerations. No Rash Neuro: Oriented X 3. No motor deficit. No sensory deficit. Moving all extremities. No slurred speech. CN 2 through 12 grossly intact Psych: calm, cooperative, normal affect Course Course Course Narrative: -all of patient's labs pending Medical Decision Making Medical Decision Making [facility] Narrative: -patient arrived with chest pain, nausea vomiting, initially admission was considered, all labs were pending. -my interpretation of EKG: Normal sinus rhythm, heart rate 84, no assessing the patient elevation, no T-wave inversion, QTC 449 -my interpretation of labs, white blood cell count normal, chemistry unremarkable, -troponin pending -troponin negative. Patient is asymptomatic. Vitals are stable -patient denies any SI or HI. Patient states that she feels ready to be discharged Differential Diagnosis Differential Diagnoses: The differential diagnosis associated with the presentation includes (ACS, costochondritis, musculoskeletal pain, anxiety) Admission/Observation Consideration of admission/observation: Escalation of care including admission/observation considered Lab Data [facility] Lab Attestation statement: I reviewed the patient's lab results. 03/05/23 22:42 03/05/23 22:42 Labs: Lab Results 03/05/23 03/05/23 03/05/23 Range/Units 22:02 22:02 22:42 WBC 10.0 (4.8-10.8) X10*3/uL RBC 4.06 L (4.20-5.50) X10*6/uL Hgb 12.2 (12.0-16.0) g/dl Hct 36.2 L (37.0-47.0) % MCV 89.2 (80.0-98.0) fL MCH 30.0 (27.0-33.0) pg MCHC 33.7 (31.0-35.0) g/dl RDW 12.9 (11.0-16.0) % Plt Count 234 (160-400) X10*3/uL MPV 10.4 (9.4-12.3) fL Immature Gran % (Auto) 0.3 (0.0-0.4) % Neut % (Auto) 72.8 (45-73) % Lymph % (Auto) 20.5 (20-40) % [place] % (Auto) 5.5 (2-11) % Eos % (Auto) 0.6 (0-4) % Baso % (Auto) 0.3 (0-2) % Lymph # (Auto) 2.1 (1.2-4.9) X10*3/uL [place] # (Auto) 0.6 (0.1-1.2) X10*3/uL Eos # (Auto) 0.1 (0.0-0.4) X10*3/uL Baso # (Auto) 0.0 (0.0-0.2) X10*3/uL Abs Immat Gran (auto) 0.03 (0.00-0.03) X10*3/uL Absolute Neuts (auto) 7.3 (2.0-8.3) x10*3/uL Absolute Nucleated RBC 0.000 (0.0-0.012) X10*3/uL Nucleated RBC % (auto) 0.0 (0.0-0.2) /100WBC Sodium (135-145) mmol/L Potassium (3.3-5.1) mmol/L Chloride (96-108) mmol/L Carbon Dioxide (22-29) mmol/L Anion Gap (12-20) BUN (9-16) mg/dL Creatinine (0.5-1.4) mg/dL Estim Creat Clear Calc Estimated GFR Random Glucose (60-115) mg/dL Calcium (8.4-10.2) mg/dL Magnesium (1.6-2.6) mg/dL Total Bilirubin (0.0-1.0) mg/dL Direct Bilirubin (0.0-0.5) mg/dL AST (5-31) U/L ALT (0-31) U/L Alkaline Phosphatase (39-117) U/L Total Protein (6.5-8.0) g/dL Albumin (3.5-5.0) g/dL Lipase (8-78) U/L TSH (0.32-4.0) uIU/mL Beta HCG, Quant mIU/mL Urine Color Yellow Urine Appearance Clear Urine pH 8.0 (5.0-9.0) Ur Specific [place] 1.010 (1.005-1.025) Urine Protein Negative (Neg-Trace) mg/dL Urine Glucose (UA) Negative (Negative) mg/dL Urine Ketones Negative (Negative) mg/dL Urine Blood Negative (Negative) Urine Nitrite Negative (Negative) Ur Leukocyte Esterase Negative (Negative) Urine Opiates Screen Not Detected (Not Detect) Urine Fentanyl Screen Not Detected (Not Detect) Ur Barbiturates Screen Not Detected (Not Detect) Ur Phencyclidine Scrn Not Detected (Not Detect) Ur Amphetamines Screen Not Detected (Not Detect) U Benzodiazepines Scrn Not Detected (Not Detect) Urine Cocaine Screen Not Detected (Not Detect) U Marijuana (THC) Screen POSITIVE H (Not Detect) Ethyl Alcohol mg/dL 03/05/23 03/05/23 03/05/23 Range/Units 22:42 22:42 22:42 WBC (4.8-10.8) X10*3/uL RBC (4.20-5.50) X10*6/uL Hgb (12.0-16.0) g/dl Hct (37.0-47.0) % MCV (80.0-98.0) fL MCH (27.0-33.0) pg MCHC (31.0-35.0) g/dl RDW (11.0-16.0) % Plt Count (160-400) X10*3/uL MPV (9.4-12.3) fL Immature Gran % (Auto) (0.0-0.4) % Neut % (Auto) (45-73) % Lymph % (Auto) (20-40) % [place] % (Auto) (2-11) % Eos % (Auto) (0-4) % Baso % (Auto) (0-2) % Lymph # (Auto) (1.2-4.9) X10*3/uL [place] # (Auto) (0.1-1.2) X10*3/uL Eos # (Auto) (0.0-0.4) X10*3/uL Baso # (Auto) (0.0-0.2) X10*3/uL Abs Immat Gran (auto) (0.00-0.03) X10*3/uL Absolute Neuts (auto) (2.0-8.3) x10*3/uL Absolute Nucleated RBC (0.0-0.012) X10*3/uL Nucleated RBC % (auto) (0.0-0.2) /100WBC Sodium 137 (135-145) mmol/L Potassium 3.8 (3.3-5.1) mmol/L Chloride 104 (96-108) mmol/L Carbon Dioxide 27 (22-29) mmol/L Anion Gap 10 L (12-20) BUN 13 (9-16) mg/dL Creatinine 0.98 (0.5-1.4) mg/dL Estim Creat Clear Calc 79.1 Estimated GFR > 60 Random Glucose 91 (60-115) mg/dL Calcium 9.5 (8.4-10.2) mg/dL Magnesium 1.9 (1.6-2.6) mg/dL Total Bilirubin 0.2 (0.0-1.0) mg/dL Direct Bilirubin < 0.2 (0.0-0.5) mg/dL AST 11 (5-31) U/L ALT 9 (0-31) U/L Alkaline Phosphatase 58 (39-117) U/L Total Protein 6.6 (6.5-8.0) g/dL Albumin 3.9 (3.5-5.0) g/dL Lipase 19 (8-78) U/L TSH 3.02 (0.32-4.0) uIU/mL Beta HCG, Quant < 2 mIU/mL Urine Color Urine Appearance Urine pH (5.0-9.0) Ur Specific [place] (1.005-1.025) Urine Protein (Neg-Trace) mg/dL Urine Glucose (UA) (Negative) mg/dL Urine Ketones (Negative) mg/dL Urine Blood (Negative) Urine Nitrite (Negative) Ur Leukocyte Esterase (Negative) Urine Opiates Screen (Not Detect) Urine Fentanyl Screen (Not Detect) Ur Barbiturates Screen (Not Detect) Ur Phencyclidine Scrn (Not Detect) Ur Amphetamines Screen (Not Detect) U Benzodiazepines Scrn (Not Detect) Urine Cocaine Screen (Not Detect) U Marijuana (THC) Screen (Not Detect) Ethyl Alcohol < 10 mg/dL Critical Care Time Critical Care Time Critical Care Time: Yes Total Critical Care Time: 45 Attestation: I have personally provided critical care time. Time includes review of lab data, radiology results, discussion with consultants, and monitoring for potential decompensation. Intervention performed as documented. Discharge Plan Discharge Clinical Impression: Atypical chest pain Patient Disposition: Home, Self-Care Instructions: Chest Pain (ED) Additional Instructions: Please follow-up with your primary care physician tomorrow. If you have any worsening or new symptoms, please return to the emergency room or call 911 Prescriptions: No Action haloperidol 5 mg tablet 1 tab PO TID PRN (Reason: Agitation) diphenhydramine HCl [Banophen] 50 mg capsule 2 cap PO BEDTIME hydroxyzine pamoate 50 mg capsule 1 cap PO BID PRN (Reason: Anxiety) zolpidem 10 mg tablet 1 tab PO BEDTIME acetaminophen 500 mg tablet 1 tab PO Q6H PRN (Reason: pain) albuterol sulfate [ProAir HFA] 90 mcg/actuation HFA aerosol inhaler 2 puff inhalation BID PRN (Reason: Wheezing) nicotine (polacrilex) 2 mg Gum 2 mg BUCCAL Q2H PRN (Reason: Smoking Cessation) omeprazole 20 mg Tablet,Delayed Release (Dr/Ec) 20 mg PO DAILY lithium carbonate 300 mg tablet 300 mg PO DAILY@1700 clonidine HCl 0.1 mg tablet 1 tab PO TID benztropine 0.5 mg tablet 1 tab PO BID haloperidol decanoate 100 mg/mL solution 100 mg IM Q4W ferrous sulfate 325 mg (65 mg iron) tablet,delayed release (DR/EC) 1 tab PO DAILY duloxetine 60 mg capsule,delayed release(DR/EC) 1 cap PO DAILY docusate sodium 100 mg Capsule 100 mg PO BID 30 Days Qty: 60 0RF Rx Instructions: HOLD FOR LOOSE STOOL cetirizine 10 mg tablet 1 tab PO DAILY fluticasone propion-salmeterol [Advair HFA] 230-21 mcg/actuation HFA aerosol inhaler 2 puff INHALATION BID prazosin 1 mg capsule 1 mg PO BEDTIME trazodone 100 mg tablet 200 mg PO BEDTIME PRN (Reason: Insomnia)
[2023-03-05 22:47] LABS: MANUAL DIFF FLAG NO
[2023-03-05 22:48] LABS: Basophils Percent Auto 0.3 % (0-2); Eosinophils Absolute Auto 0.1 X10*3/uL (0.0-0.4); Eosinophils Percent Auto 0.6 % (0-4); Hematocrit 36.2 % (37.0-47.0); Hemoglobin 12.2 g/dl (12.0-16.0); Imm Gran Abs Auto 0.03 X10*3/uL (0.00-0.03); Imm Gran Pct Auto 0.3 % (0.0-0.4); Lymphocytes Absolute Auto 2.1 X10*3/uL (1.2-4.9); Lymphocytes Percent Auto 20.5 % (20-40); Mean Corpuscular HGB Conc 33.7 g/dl (31.0-35.0); Mean Corpuscular Volume 89.2 fL (80.0-98.0); Mean Platelet Volume 10.4 fL (9.4-12.3); Monocytes Absolute Auto 0.6 X10*3/uL (0.1-1.2); Monocytes Percent Auto 5.5 % (2-11); Neutrophils Absolute Auto 7.3 x10*3/uL (2.0-8.3); Neutrophils Percent Auto 72.8 % (45-73); Platelet Count 234 X10*3/uL (160-400); Red Blood Count 4.06 X10*6/uL (4.20-5.50); Red Cell Distribution Width 12.9 % (11.0-16.0)
[2023-03-05 23:05] LABS: Alanine Aminotransferase 9 U/L (0-31); Albumin Level 3.9 g/dL (3.5-5.0); Alkaline Phosphatase 58 U/L (39-117); Anion Gap 10 (12-20); Aspartate Amino Transferase 11 U/L (5-31); Bilirubin Direct < 0.2 mg/dL (0.0-0.5); Bilirubin Total 0.2 mg/dL (0.0-1.0); Blood Urea Nitrogen 13 mg/dL (9-16); Calcium 9.5 mg/dL (8.4-10.2); Carbon Dioxide 27 mmol/L (22-29); Chloride 104 mmol/L (96-108); Creatinine Clr Calc Pharmacy 79.1; Estimated Glomerular Filt Rate > 60; Ethanol < 10 mg/dL; Glucose Random 91 mg/dL (60-115); Lipase 19 U/L (8-78); Magnesium 1.9 mg/dL (1.6-2.6); Potassium 3.8 mmol/L (3.3-5.1); Sodium 137 mmol/L (135-145); Total Protein 6.6 g/dL (6.5-8.0)
[2023-03-05 23:16] LABS: HCG Quantitative < 2 mIU/mL
[2023-03-05 23:25] LABS: TSH reflex Free T4 3.02 uIU/mL (0.32-4.0)
[2023-03-06 00:47] VITALS: BP 111/54; PULSE 70; RESP 12; TEMP 36.8; O2SAT 98
--- NOTE | 2023-03-06 00:53 | PC.NURSE ---
Pt aox4 resting at the bedside reporting N/V/D with intermittent chest pain, 11/23. Port accessed with 20G line. Labs obtained and sent. Pt tolerated well. Reports intermittent SI with auditory hallucinations at times. 1:1 sitter at bedside. Denies HI. No SI plan at this time. Pending lab results.
[2023-03-06 01:27] LABS: Troponin-I High Sensitivity < 2.7 ng/L (<3.5-17.0)
== END 2023-03-06 02:05 | disposition home or self-care (01) ==
PROVIDERS: Emergency Provider Emergency Medicine
DX: R07.89 Other chest pain (principal); R11.2 Nausea with vomiting, unspecified; F43.20 Adjustment disorder, unspecified; F41.9 Anxiety disorder, unspecified; F25.1 Schizoaffective disorder, depressive type; F43.12 Post-traumatic stress disorder, chronic; F60.3 Borderline personality disorder; F17.210 Nicotine dependence, cigarettes, uncomplicated; E66.9 Obesity, unspecified; Z68.41 Body mass index [BMI] 40.0-44.9, adult; Z91.52 Personal history of nonsuicidal self-harm; Z79.899 Other long term (current) drug therapy
CPT/HCPCS: 36415; 80048; 80076; 80307; 81003; 83690; 83735; 84443; 84484; 84702; 85025; 93005; 99284; 99285

== ENCOUNTER → 2023-03-05 21:44 | Outpatient (BNV) | payer OTHER, SELFPAY | PROVIDERS: Emergency Provider Emergency Medicine; Visit Provider Internal Medicine Cardiovascular Disease | DX: R06.02 Shortness of breath (principal) | CPT/HCPCS: 93010 ==

== ENCOUNTER 2023-03-09 23:07 | Emergency (ER) | payer OTHER, SELFPAY ==
[2023-03-09 23:11] VITALS: BP 115/66; PULSE 87; RESP 16; TEMP 36.4; O2SAT 96; BMI 43.4
--- NOTE | 2023-03-09 23:28 | ED.PSYCH ---
HPI - Psych General Chief Complaint: Psychiatric Symptoms Stated Complaint: si since today, per ems Time Seen by Provider: 03/09/23 23:17 Source: patient Mode of arrival: EMS Limitations: no limitations History of Present Illness HPI Narrative: Patient comes to the emergency room complaining of suicidal ideation. Patient has not been sleeping. Patient requesting IM Benadryl, Haldol, Ativan Related Data Home Medications Medication Instructions Recorded Confirmed acetaminophen 500 mg tablet 1 tab PO Q6H PRN pain 08/14/22 12/28/22 albuterol sulfate 90 mcg/actuation 2 puff inhalation BID PRN Wheezing 08/14/22 12/28/22 aerosol inhaler (ProAir HFA) diphenhydramine HCl 50 mg capsule 2 cap PO BEDTIME 08/14/22 12/28/22 (Banophen) haloperidol 5 mg tablet 1 tab PO TID PRN Agitation 08/14/22 12/28/22 hydroxyzine pamoate 50 mg capsule 1 cap PO BID PRN Anxiety 08/14/22 12/28/22 nicotine (polacrilex) 2 mg gum 2 mg buccal Q2H PRN Smoking 08/14/22 12/28/22 Cessation omeprazole 20 mg tablet,delayed 20 mg PO DAILY 08/14/22 12/28/22 release zolpidem 10 mg tablet 1 tab PO BEDTIME 08/14/22 12/28/22 cetirizine 10 mg tablet 1 tab PO DAILY 10/07/22 12/28/22 fluticasone propionate 230 2 puff inhalation BID 10/07/22 12/28/22 mcg-salmeterol 21 mcg/actuation HFA inhaler (Advair HFA) benztropine 0.5 mg tablet 1 tab PO BID 10/26/22 12/28/22 clonidine HCl 0.1 mg tablet 1 tab PO TID 10/26/22 12/28/22 duloxetine 60 mg capsule,delayed 1 cap PO DAILY 10/26/22 12/28/22 release ferrous sulfate 325 mg (65 mg 1 tab PO DAILY 10/26/22 12/28/22 iron) tablet,delayed release haloperidol decanoate 100 mg/mL 100 mg IM Q4W 10/26/22 12/28/22 intramuscular solution lithium carbonate 300 mg tablet 300 mg PO DAILY@1700 10/26/22 12/28/22 prazosin 1 mg capsule 1 mg PO BEDTIME 12/25/22 12/28/22 trazodone 100 mg tablet 200 mg PO BEDTIME PRN Insomnia 12/25/22 12/28/22 Previous Rx's Medication Instructions Recorded docusate sodium 100 mg capsule 100 mg PO BID 30 days #60 caps 09/01/22 Allergies Allergy/AdvReac Type Severity Reaction Status Date / Time carbamazepine [From TEGRETOL] AdvReac Mild Nausea and Verified 01/08/23 11:02 Vomiting topiramate [From Topamax] AdvReac Mild Nausea and Verified 01/08/23 11:02 Vomiting Review of Systems Review of Systems: Constitutional : No Weight loss, No Fever, No Chills, No Night Sweats, No Fatigue, No Malaise ENT/Mouth : No Hearing loss, No Ear Pain, No Nasal Congestion, No Sinus Pain, No Hoarseness, No sore throat, No Rhinorrhea, No Swallowing Difficulty Eyes: No Eye Pain, No Swelling, No Redness, No Foreign Body, No Discharge, No Vision Changes Cardiovascular : No Chest Pain, No SOB, No Dyspnea on Exertion, No Orthopnea, No Edema, No Palpitations Respiratory : No Cough, No Sputum, No Wheezing, No Smoke Exposure, No Dyspnea Gastrointestinal : No Nausea, No Vomiting, No Diarrhea, No Constipation, No abdominal Pain, No Hematochezia, No Melena Genitourinary : no irregular bleeding, No Dysuria, No Urinary Frequency, No Hematuria, No Urinary Incontinence, No Urgency, No Flank Pain, No Urinary Flow Changes, No Hesitancy Musculoskeletal : No joint pain, No Myalgias, No Joint Swelling Skin : No Skin Lesions, No rash Neuro : No Weakness, No Numbness, No Paresthesias, No Loss of Consciousness, No Dizziness, No Headache Psych : Complaining of anxiety and depression, suicidal ideation, no homicidal ideation Heme/Lymph: No Bruising, No Bleeding,No Lymphadenopathy Endocrine : No Polyuria, No Polydipsia, No Temperature Intolerance PMFSH Past Medical History Medical History Acute post-traumatic stress disorder Adjustment disorder Anxiety Asthma Borderline personality disorder Chronic post-traumatic stress disorder (PTSD) COPD (chronic obstructive pulmonary disease) Depression GERD (gastroesophageal reflux disease) History of electroconvulsive therapy Increased BMI Injury, self-inflicted Intentional self-harm PTSD (post-traumatic stress disorder) Recurrent major depression-severe Schizoaffective disorder Self-harming behavior Suicidal ideation Suicidal ideation Family History Family History Mother Brain cancer Other No family history of cardiac disease Social History Social History Household Members: Other Household Members Other:: long-term Housing: Assisted Living Facility Housing Other:: long-term Do you presently have visiting nurse or other home services: No Alcohol intake: current Alcohol intake frequency: does not drink Patient Tobacco Use Status: Current everyday Tobacco user Tobacco use type: Cigarette Cigarette Packs Per Day: 0.5 Cigarettes Per Day: 10.0 Years Smoked: 20 e-Cigarette/Vaping Use: Never Used Second Hand Smoke Exposure: Yes Substance Use Type: Marijuana service: No Sexual orientation: Straight/Heterosexual Physical Exam Const: Other: Appearance: Alert. Oriented X3. No acute distress. Eyes: Pupils equal, round and reactive to light. ENT: Pharynx normal. Neck: Normal inspection. Neck supple. No lymph nodes noted. No crepitus CVS: Normal heart rate and rhythm. Pulses normal. Normal S1 and S2 Respiratory: No respiratory distress. Breath sounds normal. No Wheezing. No rales Abdomen: Soft and nontender. No rigidity. No distention. Skin: Skin warm and dry. Superficial cuts to the left wrist, bleeding controlled Extremities: No lower extremity edema. No Lacerations. No Rash Neuro: Oriented X 3. No motor deficit. No sensory deficit. Moving all extremities. No slurred speech. CN 2 through 12 grossly intact Psych: calm, cooperative, normal affect Course Course Course Narrative: -patient has not been sleeping, patient banging her head against the wall. Redirectable. Patient requesting IM Benadryl, Haldol, Ativan -medication was given IM to the patient, per patient's request, this is not a chemical restraint -care team consult pending -physician observation started at 23:30 Discharge Plan Discharge Clinical Impression: Suicidal ideation Patient Disposition: Still a Patient Prescriptions: No Action haloperidol 5 mg tablet 1 tab PO TID PRN (Reason: Agitation) diphenhydramine HCl [Banophen] 50 mg capsule 2 cap PO BEDTIME hydroxyzine pamoate 50 mg capsule 1 cap PO BID PRN (Reason: Anxiety) zolpidem 10 mg tablet 1 tab PO BEDTIME acetaminophen 500 mg tablet 1 tab PO Q6H PRN (Reason: pain) albuterol sulfate [ProAir HFA] 90 mcg/actuation HFA aerosol inhaler 2 puff inhalation BID PRN (Reason: Wheezing) nicotine (polacrilex) 2 mg Gum 2 mg BUCCAL Q2H PRN (Reason: Smoking Cessation) omeprazole 20 mg Tablet,Delayed Release (Dr/Ec) 20 mg PO DAILY lithium carbonate 300 mg tablet 300 mg PO DAILY@1700 clonidine HCl 0.1 mg tablet 1 tab PO TID benztropine 0.5 mg tablet 1 tab PO BID haloperidol decanoate 100 mg/mL solution 100 mg IM Q4W ferrous sulfate 325 mg (65 mg iron) tablet,delayed release (DR/EC) 1 tab PO DAILY duloxetine 60 mg capsule,delayed release(DR/EC) 1 cap PO DAILY docusate sodium 100 mg Capsule 100 mg PO BID 30 Days Qty: 60 0RF Rx Instructions: HOLD FOR LOOSE STOOL cetirizine 10 mg tablet 1 tab PO DAILY fluticasone propion-salmeterol [Advair HFA] 230-21 mcg/actuation HFA aerosol inhaler 2 puff INHALATION BID prazosin 1 mg capsule 1 mg PO BEDTIME trazodone 100 mg tablet 200 mg PO BEDTIME PRN (Reason: Insomnia)
[2023-03-09] MEDS: Haloperidol Lactate 5 MG/ML VIAL IM (23:40)
[2023-03-09] MEDS: LORazepam 2 MG/ML VIAL IM (23:40)
[2023-03-09] MEDS: diphenhydrAMINE HCL 50 MG/ML VIAL IM (23:40)
--- NOTE | 2023-03-10 06:28 | PC.NURSE ---
Patient slept through the night, patient received Ativan 2 mg IM, Haldol 5 mg Im, and Benadryl 50 mg IM at 2350 per request at the time of arrival for increased restlessness and racing thought, unable to provide urine sample and wanted her lab drawn in the morning, med rec completed/pending provider's approval, care consult ordered/pending provider's approval, VSS, will continue to monitor
--- NOTE | 2023-03-10 10:33 | PC.NURSE ---
Pt just woke up. Breakfast offered. Pt refused. Urine obtained. Care Team in.
[2023-03-10 11:00] LABS: Appearance Urine Cloudy; Color Urine Yellow; Glucose Urine UA Negative (Negative); Leukocyte Esterase Urine Negative (Negative); Nitrite Urine Negative (Negative); PH 5.5 (5.0-9.0); UMIC TRIGGER UA YES; Urine Blood Small (1+) (Negative); Urine Ketones Negative (Negative); Urine Protein Negative (Neg-Trace)
[2023-03-10 11:02] LABS: UPreg QC Valid YES; Urine Pregnancy NEGATIVE (NEGATIVE)
[2023-03-10 11:09] LABS: Amphetamine Screen Urine Not Detected (Not Detect); Bacteria Urine 1+ (None Seen); Barbiturates, Urine Not Detected (Not Detect); Benzodiazepines Screen Urine Not Detected (Not Detect); Cannabinoid Screen Urine POSITIVE (Not Detect); Cocaine Screen Urine Not Detected (Not Detect); Fentanyl, urine POSITIVE (Not Detect); Hyaline Casts Urine 0-2 /LPF (0-2); Opiate Screen Urine Not Detected (Not Detect); Phencyclidine Screen Urine Not Detected (Not Detect); WBC Urine 0-5 /HPF (0-5)
--- NOTE | 2023-03-10 11:17 | MHC.CARE ---
Patient evaluated by the CARE Team, she does not require an inpatient psychiatric admission at this time. Written assessment to follow. ED provider, Dr. Brooks updated and in agreement with plan.
== END 2023-03-10 11:51 | disposition home or self-care (01) ==
PROVIDERS: Emergency Provider Emergency Medicine; PCP Pediatrics
DX: R45.851 Suicidal ideations (principal); F25.1 Schizoaffective disorder, depressive type; F43.11 Post-traumatic stress disorder, acute; F43.20 Adjustment disorder, unspecified; F41.9 Anxiety disorder, unspecified; F17.210 Nicotine dependence, cigarettes, uncomplicated; Z91.52 Personal history of nonsuicidal self-harm; Z79.899 Other long term (current) drug therapy
CPT/HCPCS: 80307; 81001; 81003; 81025; 96372; 99284; 99285; J1200; J2060; S9485

== ENCOUNTER 2023-03-14 18:58 | Emergency (ER) | payer OTHER, SELFPAY ==
[2023-03-14 19:01] VITALS: BP 149/86; PULSE 84; O2SAT 96
[2023-03-14 19:15] VITALS: BMI 45.5
[2023-03-14 19:21] VITALS: BP 116/74; PULSE 89; RESP 16; TEMP 36.9; O2SAT 99
--- NOTE | 2023-03-14 19:51 | ED.GENADULT ---
HPI - General Adult General Chief complaint: Wound/Laceration Stated complaint: CRISIS LAC TO ABD Time Seen by Provider: 03/14/23 19:18 Source: patient Mode of arrival: ambulatory Limitations: no limitations History of Present Illness HPI narrative: 37 yold female with pmh of depression and borderline personatliy disorder presents to the ED self inflicted laceration if left forearm. Patient has history of cutting herself. patient admits to audtory hallucinations but denies Suicidal/homicidal ideation. Related Data Home Medications Medication Instructions Recorded Confirmed acetaminophen 500 mg tablet 1 tab PO Q6H PRN pain 08/14/22 03/14/23 albuterol sulfate 90 mcg/actuation 2 puff inhalation BID PRN Wheezing 08/14/22 03/14/23 aerosol inhaler (ProAir HFA) diphenhydramine HCl 50 mg capsule 2 cap PO BEDTIME 08/14/22 03/14/23 (Banophen) haloperidol 5 mg tablet 1 tab PO TID PRN Agitation 08/14/22 03/14/23 hydroxyzine pamoate 50 mg capsule 1 cap PO BID PRN Anxiety 08/14/22 03/14/23 nicotine (polacrilex) 2 mg gum 2 mg buccal Q2H PRN Smoking 08/14/22 03/14/23 Cessation omeprazole 20 mg tablet,delayed 20 mg PO DAILY 08/14/22 03/14/23 release zolpidem 10 mg tablet 1 tab PO BEDTIME 08/14/22 03/14/23 cetirizine 10 mg tablet 1 tab PO DAILY 10/07/22 03/14/23 fluticasone propionate 230 2 puff inhalation BID 10/07/22 03/14/23 mcg-salmeterol 21 mcg/actuation HFA inhaler (Advair HFA) benztropine 0.5 mg tablet 1 tab PO BID 10/26/22 03/14/23 clonidine HCl 0.1 mg tablet 1 tab PO TID 10/26/22 03/14/23 duloxetine 60 mg capsule,delayed 1 cap PO DAILY 10/26/22 03/14/23 release ferrous sulfate 325 mg (65 mg 1 tab PO DAILY 10/26/22 03/14/23 iron) tablet,delayed release haloperidol decanoate 100 mg/mL 100 mg IM Q4W 03/13/23 07/30/23 intramuscular solution lithium carbonate 300 mg tablet 300 mg PO DAILY@1700 10/26/22 03/14/23 prazosin 1 mg capsule 1 mg PO BEDTIME 12/25/22 03/14/23 trazodone 100 mg tablet 200 mg PO BEDTIME PRN Insomnia 12/25/22 03/14/23 Previous Rx's Medication Instructions Recorded docusate sodium 100 mg capsule 100 mg PO BID 30 days #60 caps 09/01/22 Allergies Allergy/AdvReac Type Severity Reaction Status Date / Time carbamazepine [From TEGRETOL] AdvReac Mild Nausea and Verified 03/10/23 10:29 Vomiting topiramate [From Topamax] AdvReac Mild Nausea and Verified 03/10/23 10:29 Vomiting Review of Systems Review of Systems: left arm laceration. Yes all other systems are reviewed and are negative [facility] Past Medical History Medical History Acute post-traumatic stress disorder Adjustment disorder Anxiety Asthma Borderline personality disorder Chronic post-traumatic stress disorder (PTSD) COPD (chronic obstructive pulmonary disease) Depression GERD (gastroesophageal reflux disease) History of electroconvulsive therapy Increased BMI Injury, self-inflicted Intentional self-harm PTSD (post-traumatic stress disorder) Recurrent major depression-severe Schizoaffective disorder Self-harming behavior Suicidal ideation Suicidal ideation Family History Family History Mother Brain cancer Other No family history of cardiac disease Social History Social History Household Members: Other Household Members Other:: skilled nursing Housing: Assisted Living Facility Housing Other:: skilled nursing Do you presently have visiting nurse or other home services: No Alcohol intake: current Alcohol intake frequency: does not drink Patient Tobacco Use Status: Current everyday Tobacco user Tobacco use type: Cigarette Cigarette Packs Per Day: 0.5 Cigarettes Per Day: 10.0 Years Smoked: 20 e-Cigarette/Vaping Use: Never Used Second Hand Smoke Exposure: Yes Substance Use Type: Marijuana Advance Directives: No Advance Directives Information Provided: No Patient : No service: No Sexual orientation: Straight/Heterosexual Physical Exam ED Vital Signs: Vital Signs - 24 hr 03/14/23 19:21 Temperature 98.5 F Pulse Rate 89 Respiratory Rate 16 Blood Pressure 116/74 Pulse Oximetry 99 Oxygen Delivery Method Room Air BMI result Body Mass Index 45.5 Const General: cooperative, healthy appearing, comfortable, no acute distress, well developed, alert, awake and Physically active Orientation/consciousness: oriented to person, oriented to place, oriented to time and patient oriented x3 [facility] Head: Yes normal to inspection, Yes No palpable skull fracture present, Yes normocephalic, Yes atraumatic and No abrasion Eyes General: appearance normal, both eyes and all related structures Neck Neck: Yes normal visual inspection, Yes full ROM, Yes no lymphadenopathy, Yes no meningeal signs, Yes trachea midline, Yes supple, No anterior neck swelling and No tender Chest Chest palpation & inspection: normal inspection of the chest and normal palpation of entire chest wall Resp Effort & Inspection: normal respiratory effort and able to speak in complete sentences Auscultation: clear to auscultation bilaterally Cardio Jugular venous distension: no JVD Heart sounds: S1 normal heart sound present and S2 normal heart sound present GI Inspection: Yes normal to inspection and No abdominal wall ecchymosis Palpation (GI): Soft to palpation, not firm, nontender, no guarding and not rigid General: No CVA tenderness and Yes no CVA tenderness Back/Spine/Pelvis Back: no CVA tenderness, No CVA tenderness and No back tenderness Skin Other: left forearm laceration General skin exam: no rashes or lesions noted and elasticity normal Neuro General: oriented to person, oriented to place, oriented to time, patient oriented x3, gait normal, tone normal, moves all extremities, Normal light touch and pain sensation, no meningeal signs, no focal motor deficits, CN's II-XI intact bilaterally and normal sensation to monofilament Extrem General: Yes normal to inspection and Yes full ROM Shoulder/upper arm images: 1. left forearm laceration that will laceration repair. negative for signs of nerve/tendon injury. MOtor, neuro, vascular exam is intact. Psych Appearance: grossly normal, well kempt and not disheveled Medications Administered Discontinued Medications Generic Name Dose Route Start Last Admin Trade Name Freq PRN Reason Stop Dose Admin Lidocaine HCl 2 ml 03/14/23 19:50 03/14/23 21:29 Lidocaine Hcl 2% 2 Ml Vial INFILTRATI 03/14/23 19:51 2 ml ONCE ONE Administration Lidocaine HCl 2 ml 03/14/23 19:50 03/14/23 21:29 Lidocaine Hcl 2% 2 Ml Vial INFILTRATI 03/14/23 19:51 2 ml ONCE ONE Administration Lidocaine HCl 2 ml 03/14/23 19:50 03/14/23 21:29 Lidocaine Hcl 2% 2 Ml Vial INFILTRATI 03/14/23 19:51 2 ml ONCE ONE Administration Lidocaine HCl 2 ml 03/14/23 19:50 03/14/23 21:29 Lidocaine Hcl 2% 2 Ml Vial INFILTRATI 03/14/23 19:51 2 ml ONCE ONE Administration Olanzapine 10 mg 03/14/23 22:31 03/14/23 22:34 Olanzapine 10 Mg Tablet PO 03/14/23 22:32 10 mg ONCE ONE Administration Medical Decision Making Medical Decision Making MDM Narrative: 37 yold female with pmh of boderline personality disorder presents to the ED for self inflicting laceration on left forearm. patient denies any other trauma. patient is not suicidal or homicidal. patient is uptodate with tetanus. Patient labs are normal. Laceration with cleaned iodine and sterile saline. Lidocaine 2% 6ml placed into laceration. nylone size 3 sutures used and four suture placed. Patient evaluated by Care team personnel consultant Sukhdev Who state patient is safe for discharge. Differential Diagnosis Differential Diagnoses: The differential diagnosis associated with the presentation includes (depression, laceration, suicidal, homicidal, ) Consult Healthcare Provider Management of the patient was discussed with: Contract Administration Specialist (Care Team) Lab Data 03/14/23 21:08 03/14/23 21:08 Labs: Lab Results 03/14/23 03/14/23 03/14/23 Range/Units 21:08 21:08 21:55 WBC 7.4 (4.8-10.8) X10*3/uL RBC 4.39 (4.20-5.50) X10*6/uL Hgb 13.0 (12.0-16.0) g/dl Hct 39.5 (37.0-47.0) % MCV 90.0 (80.0-98.0) fL MCH 29.6 (27.0-33.0) pg MCHC 32.9 (31.0-35.0) g/dl RDW 12.9 (11.0-16.0) % Plt Count 136 L D (160-400) X10*3/uL MPV 11.1 (9.4-12.3) fL Absolute Nucleated RBC 0.000 (0.0-0.012) X10*3/uL Nucleated RBC % (auto) 0.0 (0.0-0.2) /100WBC Sodium 138 (135-145) mmol/L Potassium 3.9 (3.3-5.1) mmol/L Chloride 106 (96-108) mmol/L Carbon Dioxide 21 L (22-29) mmol/L Anion Gap 15 (12-20) BUN 7 L (9-16) mg/dL Creatinine 0.80 (0.5-1.4) mg/dL Estim Creat Clear Calc 102.5 Estimated GFR > 60 Random Glucose 105 (60-115) mg/dL Calcium 9.4 (8.4-10.2) mg/dL Total Bilirubin 0.3 (0.0-1.0) mg/dL AST 12 (5-31) U/L ALT 10 (0-31) U/L Alkaline Phosphatase 54 (39-117) U/L Total Protein 6.7 (6.5-8.0) g/dL Albumin 4.0 (3.5-5.0) g/dL Urine Color Urine Appearance Urine pH (5.0-9.0) Ur Specific [place] (1.005-1.025) Urine Protein (Neg-Trace) mg/dL Urine Glucose (UA) (Negative) mg/dL Urine Ketones (Negative) mg/dL Urine Blood (Negative) Urine Nitrite (Negative) Ur Leukocyte Esterase (Negative) Urine RBC (0-2) /HPF Urine WBC (0-5) /HPF Ur Squamous Epith Cells (0-2) /HPF Urine Bacteria (None Seen) Hyaline Casts (0-2) /LPF Urine Opiates Screen (Not Detect) Urine Fentanyl Screen (Not Detect) Ur Barbiturates Screen (Not Detect) Ur Phencyclidine Scrn (Not Detect) Ur Amphetamines Screen (Not Detect) U Benzodiazepines Scrn (Not Detect) Urine Cocaine Screen (Not Detect) U Marijuana (THC) Screen (Not Detect) Ethyl Alcohol < 10 mg/dL COVID-19 (RAFAL) Negative (Negative) COVID-19 Clin Com See Note 03/14/23 03/14/23 Range/Units 21:55 21:55 WBC (4.8-10.8) X10*3/uL RBC (4.20-5.50) X10*6/uL Hgb (12.0-16.0) g/dl Hct (37.0-47.0) % MCV (80.0-98.0) fL MCH (27.0-33.0) pg MCHC (31.0-35.0) g/dl RDW (11.0-16.0) % Plt Count (160-400) X10*3/uL MPV (9.4-12.3) fL Absolute Nucleated RBC (0.0-0.012) X10*3/uL Nucleated RBC % (auto) (0.0-0.2) /100WBC Sodium (135-145) mmol/L Potassium (3.3-5.1) mmol/L Chloride (96-108) mmol/L Carbon Dioxide (22-29) mmol/L Anion Gap (12-20) BUN (9-16) mg/dL Creatinine (0.5-1.4) mg/dL Estim Creat Clear Calc Estimated GFR Random Glucose (60-115) mg/dL Calcium (8.4-10.2) mg/dL Total Bilirubin (0.0-1.0) mg/dL AST (5-31) U/L ALT (0-31) U/L Alkaline Phosphatase (39-117) U/L Total Protein (6.5-8.0) g/dL Albumin (3.5-5.0) g/dL Urine Color Yellow Urine Appearance Clear Urine pH 5.5 (5.0-9.0) Ur Specific [place] 1.010 (1.005-1.025) Urine Protein Negative (Neg-Trace) mg/dL Urine Glucose (UA) Negative (Negative) mg/dL Urine Ketones Negative (Negative) mg/dL Urine Blood Negative (Negative) Urine Nitrite Negative (Negative) Ur Leukocyte Esterase Negative (Negative) Urine RBC 0-2 (0-2) /HPF Urine WBC 0-5 (0-5) /HPF Ur Squamous Epith Cells 6-10 (0-2) /HPF Urine Bacteria Trace (None Seen) Hyaline Casts 0-2 (0-2) /LPF Urine Opiates Screen Not Detected (Not Detect) Urine Fentanyl Screen POSITIVE H (Not Detect) Ur Barbiturates Screen Not Detected (Not Detect) Ur Phencyclidine Scrn Not Detected (Not Detect) Ur Amphetamines Screen Not Detected (Not Detect) U Benzodiazepines Scrn Not Detected (Not Detect) Urine Cocaine Screen Not Detected (Not Detect) U Marijuana (THC) Screen POSITIVE H (Not Detect) Ethyl Alcohol mg/dL COVID-19 (RAFAL) (Negative) COVID-19 Clin Com Discharge Plan Discharge Clinical Impression: Borderline personality disorder, Forearm laceration Patient Disposition: Home, Self-Care Instructions: Laceration (ED), Borderline Personality Disorder (DC) Additional Instructions: Sutures should be removed in 11. Return to the ED for any swelling, redness, pus discharge, foul odor, in suicidal/homicidal ideation, auditory/visual hallucinations, or any other concerning symptoms. Please follow-up with primary cares. Prescriptions: No Action haloperidol 5 mg tablet 1 tab PO TID PRN (Reason: Agitation) diphenhydramine HCl [Banophen] 50 mg capsule 2 cap PO BEDTIME hydroxyzine pamoate 50 mg capsule 1 cap PO BID PRN (Reason: Anxiety) zolpidem 10 mg tablet 1 tab PO BEDTIME acetaminophen 500 mg tablet 1 tab PO Q6H PRN (Reason: pain) albuterol sulfate [ProAir HFA] 90 mcg/actuation HFA aerosol inhaler 2 puff inhalation BID PRN (Reason: Wheezing) nicotine (polacrilex) 2 mg Gum 2 mg BUCCAL Q2H PRN (Reason: Smoking Cessation) omeprazole 20 mg Tablet,Delayed Release (Dr/Ec) 20 mg PO DAILY lithium carbonate 300 mg tablet 300 mg PO DAILY@1700 clonidine HCl 0.1 mg tablet 1 tab PO TID benztropine 0.5 mg tablet 1 tab PO BID haloperidol decanoate 100 mg/mL solution 100 mg IM Q4W ferrous sulfate 325 mg (65 mg iron) tablet,delayed release (DR/EC) 1 tab PO DAILY duloxetine 60 mg capsule,delayed release(DR/EC) 1 cap PO DAILY docusate sodium 100 mg Capsule 100 mg PO BID 30 Days Qty: 60 0RF Rx Instructions: HOLD FOR LOOSE STOOL cetirizine 10 mg tablet 1 tab PO DAILY fluticasone propion-salmeterol [Advair HFA] 230-21 mcg/actuation HFA aerosol inhaler 2 puff INHALATION BID prazosin 1 mg capsule 1 mg PO BEDTIME trazodone 100 mg tablet 200 mg PO BEDTIME PRN (Reason: Insomnia) Interventions: ED Discharge Assessment Last Done: 03/15/23 00:49 Discharge Date/Time: 03/15/23 00:49 Print Language: Khmer
--- NOTE | 2023-03-14 20:56 | PC.NURSE ---
labs attempted by PCT without success. this RN attempted getting labs from patient's port but was unsuccessful, no blood return. zinc furnace charger assisted as well. phlebotomy called to obtain blood work. sitter in place. pt calm and cooperative.
[2023-03-14 21:38] LABS: Hematocrit 39.5 % (37.0-47.0); Mean Corpuscular HGB Conc 32.9 g/dl (31.0-35.0); Mean Corpuscular Hemoglobin 29.6 pg (27.0-33.0); Mean Platelet Volume 11.1 fL (9.4-12.3); PLT CLUMP 1; Platelet Count 136 X10*3/uL (160-400); Red Blood Count 4.39 X10*6/uL (4.20-5.50); Red Cell Distribution Width 12.9 % (11.0-16.0); White Blood Count 7.4 X10*3/uL (4.8-10.8)
[2023-03-14 21:44] LABS: Alanine Aminotransferase 10 U/L (0-31); Alkaline Phosphatase 54 U/L (39-117); Anion Gap 15 (12-20); Aspartate Amino Transferase 12 U/L (5-31); Bilirubin Total 0.3 mg/dL (0.0-1.0); Blood Urea Nitrogen 7 mg/dL (9-16); Calcium 9.4 mg/dL (8.4-10.2); Carbon Dioxide 21 mmol/L (22-29); Chloride 106 mmol/L (96-108); Creatinine Clr Calc Pharmacy 102.5; Estimated Glomerular Filt Rate > 60; Ethanol < 10 mg/dL; Glucose Random 105 mg/dL (60-115); Potassium 3.9 mmol/L (3.3-5.1); Sodium 138 mmol/L (135-145); Total Protein 6.7 g/dL (6.5-8.0)
[2023-03-14 22:03] LABS: Appearance Urine Clear; Color Urine Yellow; Glucose Urine UA Negative (Negative); Leukocyte Esterase Urine Negative (Negative); Nitrite Urine Negative (Negative); PH 5.5 (5.0-9.0); Urine Blood Negative (Negative); Urine Ketones Negative (Negative); Urine Protein Negative (Neg-Trace)
[2023-03-14 22:08] LABS: Bacteria Urine Trace (None Seen); Hyaline Casts Urine 0-2 /LPF (0-2); RBC Urine 0-2 /HPF (0-2); WBC Urine 0-5 /HPF (0-5)
[2023-03-14 22:11] LABS: Amphetamine Screen Urine Not Detected (Not Detect); Barbiturates, Urine Not Detected (Not Detect); Benzodiazepines Screen Urine Not Detected (Not Detect); Cannabinoid Screen Urine POSITIVE (Not Detect); Cocaine Screen Urine Not Detected (Not Detect); Fentanyl, urine POSITIVE (Not Detect); Opiate Screen Urine Not Detected (Not Detect); Phencyclidine Screen Urine Not Detected (Not Detect)
--- NOTE | 2023-03-14 22:14 | PC.NURSE ---
Pt moved to [facility], resting quietly in bed at this tiime. Pt denies pain, is A&Ox4, GCS 15. Pt is waiting for CARE team at this time.
[2023-03-14 22:15] LABS: IDNOW Serial# 08D9AD1C
[2023-03-14 22:16] LABS: COVID-19 Test Negative (Negative)
[2023-03-14] MEDS: OLANZapine 10 MG TABLET PO (22:34)
== END 2023-03-15 00:49 | disposition home or self-care (01) ==
PROVIDERS: Emergency Provider Internal Medicine; PCP Pediatrics
DX: S51.812A Laceration without foreign body of left forearm, initial encounter (principal); R45.851 Suicidal ideations; X78.9XXA Intentional self-harm by unspecified sharp object, initial encounter; Y93.9 Activity, unspecified; Y92.9 Unspecified place or not applicable; Y99.9 Unspecified external cause status; Z20.822 Contact with and (suspected) exposure to COVID-19; Z20.828 Contact with and (suspected) exposure to other viral communicable diseases; Z79.899 Other long term (current) drug therapy
CPT/HCPCS: 12002; 80053; 80307; 81001; 85027; 87635; 99284

== ENCOUNTER 2023-03-22 17:07 | Emergency (ER) | payer OTHER, SELFPAY ==
--- NOTE | ~2023-03-22 | CT_ITS ---
EXAMINATION: CT HEAD WITHOUT CONTRAST CLINICAL INFORMATION: Head injury. COMPARISON: CT head 08/25/2022. TECHNIQUE: Contiguous axial imaging was performed from the skull base to vertex without intravenous administration of contrast. This CT examination was performed using dose optimization techniques as appropriate, variously including the following: *Automated exposure control *Adjustment of mA and/or kV according to patient size (this includes techniques or standardized protocols for targeted exams where dose is matched to indication/reason for exam; i.e. extremities or head) *Use of iterative reconstruction technique DLP: 616 mGy-cm FINDINGS: There is mild swelling of the frontal scalp which is superimposed upon a chronic scar. The underlying calvarium is intact. No acute intracranial hemorrhage or abnormal extra-axial collection. No intracranial mass effect or midline shift. Lateral and third ventricles are normal. No hydrocephalus. Diaz-white matter differentiation is preserved and there is no evidence of acute territorial infarct. The skull base is intact. No mastoid or middle ear effusion. No active paranasal sinus disease. CT/CT head/brain wo IV con IMPRESSION: There is mild swelling of the frontal scalp which is superimposed upon a chronic scar. Otherwise unremarkable examination. No acute intracranial hemorrhage.
[2023-03-22 17:24] VITALS: BP 125/63; BP 148/80; PULSE 83; PULSE 99; RESP 16; TEMP 37; O2SAT 100; BMI 46.6
--- NOTE | 2023-03-22 17:45 | ED.PSYCH ---
HPI - Psych General Chief Complaint: Psychiatric Symptoms Stated Complaint: Crisis Time Seen by Provider: 03/22/23 17:26 Source: patient Mode of arrival: ambulatory Limitations: no limitations History of Present Illness HPI Narrative: Patient with history schizoaffective disorder PTSD borderline personality disorder been here in multiple times for agitation for station earlier today at 11:00 patient had frustration with other residents and started banging her head to the wall with history of same in the past said he has she had at least 10 15 times with bleeding from the forehead denied SI/HI complaining of mild headache Related Data Home Medications Medication Instructions Recorded Confirmed acetaminophen 500 mg tablet 1 tab PO Q6H PRN pain 08/14/22 03/22/23 albuterol sulfate 90 mcg/actuation 2 puff inhalation BID PRN Wheezing 08/14/22 03/22/23 aerosol inhaler (ProAir HFA) diphenhydramine HCl 50 mg capsule 2 cap PO BEDTIME 08/14/22 03/22/23 (Banophen) haloperidol 5 mg tablet 1 tab PO TID PRN Agitation 08/14/22 03/22/23 hydroxyzine pamoate 50 mg capsule 1 cap PO BID PRN Anxiety 08/14/22 03/22/23 nicotine (polacrilex) 2 mg gum 2 mg buccal Q2H PRN Smoking 08/14/22 03/22/23 Cessation omeprazole 20 mg tablet,delayed 20 mg PO DAILY 08/14/22 03/22/23 release zolpidem 10 mg tablet 1 tab PO BEDTIME 08/14/22 03/22/23 cetirizine 10 mg tablet 1 tab PO DAILY 10/07/22 03/22/23 fluticasone propionate 230 2 puff inhalation BID 10/07/22 03/22/23 mcg-salmeterol 21 mcg/actuation HFA inhaler (Advair HFA) benztropine 0.5 mg tablet 1 tab PO BID 10/26/22 03/22/23 clonidine HCl 0.1 mg tablet 1 tab PO TID 10/26/22 03/22/23 duloxetine 60 mg capsule,delayed 1 cap PO DAILY 10/26/22 03/22/23 release ferrous sulfate 325 mg (65 mg 1 tab PO DAILY 10/26/22 03/22/23 iron) tablet,delayed release haloperidol decanoate 100 mg/mL 100 mg IM Q4W 10/26/22 03/22/23 intramuscular solution lithium carbonate 300 mg tablet 300 mg PO DAILY@1700 10/26/22 03/22/23 prazosin 1 mg capsule 1 mg PO BEDTIME 12/25/22 03/22/23 trazodone 100 mg tablet 200 mg PO BEDTIME PRN Insomnia 12/25/22 03/22/23 Previous Rx's Medication Instructions Recorded docusate sodium 100 mg capsule 100 mg PO BID 30 days #60 caps 09/01/22 Allergies Allergy/AdvReac Type Severity Reaction Status Date / Time carbamazepine [From TEGRETOL] AdvReac Mild Nausea and Verified 03/10/23 10:29 Vomiting topiramate [From Topamax] AdvReac Mild Nausea and Verified 03/10/23 10:29 Vomiting Review of Systems Review of Systems: Yes all other systems are reviewed and are negative PMFSH Past Medical History Medical History Acute post-traumatic stress disorder Adjustment disorder Anxiety Asthma Borderline personality disorder Chronic post-traumatic stress disorder (PTSD) COPD (chronic obstructive pulmonary disease) COVID-19 COVID-19 Depression GERD (gastroesophageal reflux disease) History of electroconvulsive therapy Increased BMI Injury, self-inflicted Intentional self-harm PTSD (post-traumatic stress disorder) Recurrent major depression-severe Schizoaffective disorder Self-harming behavior Sprain of left foot Suicidal ideation Suicidal ideation Family History Family History Mother Brain cancer Other No family history of cardiac disease Social History Social History Household Members: Other Household Members Other:: [facility] Housing: Assisted Living Facility Housing Other:: [facility] Do you presently have visiting nurse or other home services: No Alcohol intake: never Patient Tobacco Use Status: Current everyday Tobacco user Tobacco use type: Cigarette Cigarette Packs Per Day: 0.5 Cigarettes Per Day: 10.0 Years Smoked: 20 Smoked in Last 30 Days: Yes e-Cigarette/Vaping Use: Never Used Second Hand Smoke Exposure: Yes Use of substances other than those prescribed or required for medical reasons: Yes Substance Use Type: Marijuana Advance Directives: No Advance Directives Information Provided: No service: No Sexual orientation: Straight/Heterosexual Physical Exam Vital Signs: Vital Signs: Last Vital Signs Temp 98.2 F 03/22/23 19:14 Pulse 92 03/22/23 19:14 Resp 20 03/22/23 19:14 BP 92/50 L 03/22/23 19:14 Pulse Ox 96 03/22/23 19:14 O2 Del Method Room Air 03/22/23 19:14 BMI result Body Mass Index 46.6 Appearance: Alert. Oriented X3. Anxious. Eyes: PERRLA, No Nystagmus ENT: Pharynx normal. Oral Mucosa moist abraded forehead with no active bleeding Neck: Normal inspection. Neck supple. CVS: Normal heart rate and rhythm. Pulses normal. Respiratory: No respiratory distress. Equal air entry bilateral, no wheezing/rales/rhonchi Abdomen: Soft and nontender. Bowel sounds are present, no mass palpable, no CVA tenderness Skin: Skin warm and dry. Normal skin color. Normal skin turgor. Extremities: No lower extremity edema. No calf tenderness psych: Anxious and agitated denies SI/HI denies hallucinations Neuro: Oriented X 3. No motor deficit. No sensory deficit.No cerebellar signs , cranial nerves II-XII intact HEENT: Head images: 1. Superficial abrasion laceration without any active bleed with soft tissue swelling Medications Administered Discontinued Medications Generic Name Dose Route Start Last Admin Trade Name Freq PRN Reason Stop Dose Admin Bacitracin 1 appl 03/22/23 17:34 03/22/23 18:02 Bacitracin Oint 0.9 Gm Packet TOPICAL 03/22/23 17:35 1 appl ONCE ONE Administration Protocol Olanzapine 10 mg 03/22/23 17:59 03/22/23 18:09 Olanzapine 10 Mg Tablet PO 03/22/23 18:00 10 mg ONCE ONE Administration Medical Decision Making Medical Decision Making [facility] Narrative: Patient feels stable now case discussed with care team agreed to discharge the patient back to [facility] head CT was negative Discharge Plan Discharge Clinical Impression: Schizoaffective disorder, depressive type, Chronic post-traumatic stress disorder (PTSD) Patient Disposition: Home, Self-Care Instructions: Schizoaffective Disorder (ED), Post Traumatic Stress Disorder (ED) Additional Instructions: Continue your medications follow with therapist Prescriptions: No Action haloperidol 5 mg tablet 1 tab PO TID PRN (Reason: Agitation) diphenhydramine HCl [Banophen] 50 mg capsule 2 cap PO BEDTIME hydroxyzine pamoate 50 mg capsule 1 cap PO BID PRN (Reason: Anxiety) zolpidem 10 mg tablet 1 tab PO BEDTIME acetaminophen 500 mg tablet 1 tab PO Q6H PRN (Reason: pain) albuterol sulfate [ProAir HFA] 90 mcg/actuation HFA aerosol inhaler 2 puff inhalation BID PRN (Reason: Wheezing) nicotine (polacrilex) 2 mg Gum 2 mg BUCCAL Q2H PRN (Reason: Smoking Cessation) omeprazole 20 mg Tablet,Delayed Release (Dr/Ec) 20 mg PO DAILY lithium carbonate 300 mg tablet 300 mg PO DAILY@1700 clonidine HCl 0.1 mg tablet 1 tab PO TID benztropine 0.5 mg tablet 1 tab PO BID haloperidol decanoate 100 mg/mL solution 100 mg IM Q4W ferrous sulfate 325 mg (65 mg iron) tablet,delayed release (DR/EC) 1 tab PO DAILY duloxetine 60 mg capsule,delayed release(DR/EC) 1 cap PO DAILY docusate sodium 100 mg Capsule 100 mg PO BID 30 Days Qty: 60 0RF Rx Instructions: HOLD FOR LOOSE STOOL cetirizine 10 mg tablet 1 tab PO DAILY fluticasone propion-salmeterol [Advair HFA] 230-21 mcg/actuation HFA aerosol inhaler 2 puff INHALATION BID prazosin 1 mg capsule 1 mg PO BEDTIME trazodone 100 mg tablet 200 mg PO BEDTIME PRN (Reason: Insomnia) Interventions: [place]-Suicide Risk Severity Scale Last Done: 03/22/23 17:32 ED Discharge Assessment Last Done: 03/22/23 21:14 Discharge Date/Time: 03/22/23 21:21
[2023-03-22] MEDS: Bacitracin Oint 0.9 GM PACKET 1 APPL TOPICAL (18:02)
--- NOTE | 2023-03-22 18:03 | PC.NURSE ---
pt axox4, respirations even and unlabored, sats 99% RA, vss, skin wpd. pt arrived via ems; ems states they had call earlier today d/t pt being frustrated with another resident at care home; denied si/hi at that time. 2nd call pt had been banging head against wall; reported si/denies hi. pt reports si to this rn; states has plan but refuses to tell this RN. changeover with security at bedside. md to bedside; awaiting ct. sitter at bedside. abrasion to forehead; bleeding controlled bacitracin applied. pt denies vision changes/MOORE/n/v. all needs met at this time.
[2023-03-22] MEDS: OLANZapine 10 MG TABLET PO (18:09)
[2023-03-22 19:14] VITALS: BP 92/50; PULSE 92; RESP 20; TEMP 36.8; O2SAT 96
== END 2023-03-22 21:21 | disposition home or self-care (01) ==
PROVIDERS: Emergency Provider Internal Medicine
DX: R45.1 Restlessness and agitation (principal); F25.0 Schizoaffective disorder, bipolar type; F43.12 Post-traumatic stress disorder, chronic; S00.81XA Abrasion of other part of head, initial encounter; X83.8XXA Intentional self-harm by other specified means, initial encounter; F60.3 Borderline personality disorder; F17.210 Nicotine dependence, cigarettes, uncomplicated; F12.90 Cannabis use, unspecified, uncomplicated; Z79.899 Other long term (current) drug therapy; Y93.9 Activity, unspecified; Y92.049 Unspecified place in boarding-house as the place of occurrence of the external cause; Y99.9 Unspecified external cause status
CPT/HCPCS: 70450; 99284

== ENCOUNTER 2023-03-24 20:34 | Emergency (ER) | payer OTHER, SELFPAY ==
[2023-03-24 20:45] VITALS: BP 151/88; PULSE 114; RESP 16; TEMP 36.3; O2SAT 97; BMI 43.4
[2023-03-24] MEDS: OLANZapine 10 MG VIAL IM (21:15)
[2023-03-24 21:18] LABS: Amphetamine Screen Urine Not Detected (Not Detect); Barbiturates, Urine Not Detected (Not Detect); Benzodiazepines Screen Urine Not Detected (Not Detect); Cannabinoid Screen Urine POSITIVE (Not Detect); Cocaine Screen Urine Not Detected (Not Detect); Fentanyl, urine POSITIVE (Not Detect); Opiate Screen Urine Not Detected (Not Detect); Phencyclidine Screen Urine Not Detected (Not Detect)
[2023-03-24 21:23] LABS: Appearance Urine Cloudy; Color Urine Yellow; Glucose Urine UA Negative (Negative); Leukocyte Esterase Urine Small (1+) (Negative); Nitrite Urine Negative (Negative); PH 5.5 (5.0-9.0); Specific Gravity - Urine >= 1.030 (1.005-1.025); UMIC TRIGGER UA YES; Urine Blood Trace (Negative); Urine Ketones Negative (Negative); Urine Protein Trace mg/dL (Neg-Trace)
[2023-03-24 21:28] LABS: Bacteria Urine 4+ (None Seen); Hyaline Casts Urine 0-2 /LPF (0-2); Squamous Epithelial Cell Urine >20 /HPF (0-2)
[2023-03-24 22:35] LABS: UPreg QC Valid YES; Urine Pregnancy NEGATIVE (NEGATIVE)
--- NOTE | 2023-03-25 00:40 | ED.PSYCH ---
HPI - Psych General Chief Complaint: Psychiatric Symptoms Stated Complaint: SI CRISIS Time Seen by Provider: 03/24/23 20:51 Source: patient and EMS Mode of arrival: EMS Limitations: no limitations History of Present Illness HPI Narrative: Patient with history of schizoaffective disorder PTSD depression personality disorder was seen here yesterday again comes today by ambulance Section 12 from her alf for self-harm and suicidal ideation on arrival patient, is calm and cooperative Related Data Home Medications Medication Instructions Recorded Confirmed acetaminophen 500 mg tablet 1 tab PO Q6H PRN pain 08/14/22 03/24/23 albuterol sulfate 90 mcg/actuation 2 puff inhalation BID PRN Wheezing 08/14/22 03/24/23 aerosol inhaler (ProAir HFA) diphenhydramine HCl 50 mg capsule 2 cap PO BEDTIME 08/14/22 03/24/23 (Banophen) haloperidol 5 mg tablet 1 tab PO TID PRN Agitation 08/14/22 03/24/23 hydroxyzine pamoate 50 mg capsule 1 cap PO BID PRN Anxiety 08/14/22 03/24/23 nicotine (polacrilex) 2 mg gum 2 mg buccal Q2H PRN Smoking 08/14/22 03/24/23 Cessation omeprazole 20 mg tablet,delayed 20 mg PO DAILY 08/14/22 03/24/23 release zolpidem 10 mg tablet 1 tab PO BEDTIME 08/14/22 03/24/23 cetirizine 10 mg tablet 1 tab PO DAILY 10/07/22 03/24/23 fluticasone propionate 230 2 puff inhalation BID 10/07/22 03/24/23 mcg-salmeterol 21 mcg/actuation HFA inhaler (Advair HFA) benztropine 0.5 mg tablet 1 tab PO BID 10/26/22 03/24/23 clonidine HCl 0.1 mg tablet 1 tab PO TID 10/26/22 03/24/23 duloxetine 60 mg capsule,delayed 1 cap PO DAILY 10/26/22 03/24/23 release ferrous sulfate 325 mg (65 mg 1 tab PO DAILY 10/26/22 03/24/23 iron) tablet,delayed release haloperidol decanoate 100 mg/mL 100 mg IM Q4W 10/26/22 03/24/23 intramuscular solution lithium carbonate 300 mg tablet 300 mg PO DAILY@1700 10/26/22 03/24/23 prazosin 1 mg capsule 1 mg PO BEDTIME 12/25/22 03/24/23 trazodone 100 mg tablet 200 mg PO BEDTIME PRN Insomnia 12/25/22 03/24/23 Previous Rx's Medication Instructions Recorded docusate sodium 100 mg capsule 100 mg PO BID 30 days #60 caps 09/01/22 Allergies Allergy/AdvReac Type Severity Reaction Status Date / Time carbamazepine [From TEGRETOL] AdvReac Mild Nausea and Verified 03/10/23 10:29 Vomiting topiramate [From Topamax] AdvReac Mild Nausea and Verified 03/10/23 10:29 Vomiting Review of Systems Review of Systems: Yes all other systems are reviewed and are negative PMFSH Past Medical History Medical History Acute post-traumatic stress disorder Adjustment disorder Anxiety Asthma Borderline personality disorder Chronic post-traumatic stress disorder (PTSD) COPD (chronic obstructive pulmonary disease) COVID-19 COVID-19 Depression GERD (gastroesophageal reflux disease) History of electroconvulsive therapy Increased BMI Injury, self-inflicted Intentional self-harm PTSD (post-traumatic stress disorder) Recurrent major depression-severe Schizoaffective disorder Self-harming behavior Sprain of left foot Suicidal ideation Suicidal ideation Family History Family History Mother Brain cancer Other No family history of cardiac disease Social History Social History Household Members: Other Household Members Other:: alf Housing: Assisted Living Facility Housing Other:: alf Do you presently have visiting nurse or other home services: No Alcohol intake: never Patient Tobacco Use Status: Current everyday Tobacco user Tobacco use type: Cigarette Cigarette Packs Per Day: 0.5 Cigarettes Per Day: 10.0 Years Smoked: 20 e-Cigarette/Vaping Use: Never Used Second Hand Smoke Exposure: Yes Substance Use Type: Marijuana Advance Directives: No Advance Directives Information Provided: Yes service: No Sexual orientation: Straight/Heterosexual Physical Exam Vital Signs: Vital Signs: Last Vital Signs Temp 97.4 F 03/24/23 20:45 Pulse 114 H 03/24/23 20:45 Resp 16 03/24/23 20:45 BP 151/88 H 03/24/23 20:45 Pulse Ox 97 03/24/23 20:45 O2 Del Method Room Air 03/24/23 20:45 BMI result Body Mass Index 43.4 Appearance: Alert. Oriented X3. No acute distress. Eyes: PERRLA, No Nystagmus ENT: Pharynx normal. Oral Mucosa moist healing superficial abrasion forehead Neck: Normal inspection. Neck supple. CVS: Normal heart rate and rhythm. Pulses normal. Respiratory: No respiratory distress. Equal air entry bilateral, no wheezing/rales/rhonchi Abdomen: Soft and nontender. Bowel sounds are present, no mass palpable, no CVA tenderness Skin: Skin warm and dry. Normal skin color. Normal skin turgor. Extremities: No lower extremity edema. No calf tenderness psch: Feels anxious denies any SI or HI at this time no hallucinations Neuro: Oriented X 3. No motor deficit. No sensory deficit.No cerebellar signs , cranial nerves II-XII intact Medications Administered Discontinued Medications Generic Name Dose Route Start Last Admin Trade Name Griffinq PRN Reason Stop Dose Admin Olanzapine 10 mg 03/24/23 21:09 03/24/23 21:15 Olanzapine 10 Mg Vial IM 03/24/23 21:10 10 mg STAT STA Administration Medical Decision Making Lab Data Labs: Lab Results 03/24/23 03/24/23 03/24/23 Range/Units 20:59 20:59 20:59 Urine Color Yellow Urine Appearance Cloudy Urine pH 5.5 (5.0-9.0) Ur Specific [place] >= 1.030 H (1.005-1.025) Urine Protein Trace (Neg-Trace) mg/dL Urine Glucose (UA) Negative (Negative) mg/dL Urine Ketones Negative (Negative) mg/dL Urine Blood Trace H (Negative) Urine Nitrite Negative (Negative) Ur Leukocyte Esterase Small (1+) H (Negative) Urine RBC 3-5 H (0-2) /HPF Urine WBC 6-10 H (0-5) /HPF Ur Squamous Epith Cells >20 (0-2) /HPF Urine Bacteria 4+ (None Seen) Hyaline Casts 0-2 (0-2) /LPF Urine Test NEGATIVE (NEGATIVE) Urine Opiates Screen Not Detected (Not Detect) Urine Fentanyl Screen POSITIVE H (Not Detect) Ur Barbiturates Screen Not Detected (Not Detect) Ur Phencyclidine Scrn Not Detected (Not Detect) Ur Amphetamines Screen Not Detected (Not Detect) U Benzodiazepines Scrn Not Detected (Not Detect) Urine Cocaine Screen Not Detected (Not Detect) U Marijuana (THC) Screen POSITIVE H (Not Detect) Discharge Plan Discharge Clinical Impression: Schizoaffective disorder, depressive type, Suicidal ideation, Chronic post-traumatic stress disorder (PTSD) Patient Disposition: Still a Patient Prescriptions: No Action haloperidol 5 mg tablet 1 tab PO TID PRN (Reason: Agitation) diphenhydramine HCl [Banophen] 50 mg capsule 2 cap PO BEDTIME hydroxyzine pamoate 50 mg capsule 1 cap PO BID PRN (Reason: Anxiety) zolpidem 10 mg tablet 1 tab PO BEDTIME acetaminophen 500 mg tablet 1 tab PO Q6H PRN (Reason: pain) albuterol sulfate [ProAir HFA] 90 mcg/actuation HFA aerosol inhaler 2 puff inhalation BID PRN (Reason: Wheezing) nicotine (polacrilex) 2 mg Gum 2 mg BUCCAL Q2H PRN (Reason: Smoking Cessation) omeprazole 20 mg Tablet,Delayed Release (Dr/Ec) 20 mg PO DAILY lithium carbonate 300 mg tablet 300 mg PO DAILY@1700 clonidine HCl 0.1 mg tablet 1 tab PO TID benztropine 0.5 mg tablet 1 tab PO BID haloperidol decanoate 100 mg/mL solution 100 mg IM Q4W ferrous sulfate 325 mg (65 mg iron) tablet,delayed release (DR/EC) 1 tab PO DAILY duloxetine 60 mg capsule,delayed release(DR/EC) 1 cap PO DAILY docusate sodium 100 mg Capsule 100 mg PO BID 30 Days Qty: 60 0RF Rx Instructions: HOLD FOR LOOSE STOOL cetirizine 10 mg tablet 1 tab PO DAILY fluticasone propion-salmeterol [Advair HFA] 230-21 mcg/actuation HFA aerosol inhaler 2 puff INHALATION BID prazosin 1 mg capsule 1 mg PO BEDTIME trazodone 100 mg tablet 200 mg PO BEDTIME PRN (Reason: Insomnia) Interventions: [place]-Suicide Risk Severity Scale Last Done: 03/24/23 20:55
--- NOTE | 2023-03-25 06:17 | PC.NURSE ---
Olanzapine 10 mg IM administered at 2114 as ordered per patient's request for restlessness and AH, patient assessed by [facility] in the community with disposition section 12 inpatient bed search, patient is on 1:1 observation for safety, blood draw pending, behavior non concerning at this time but unpredictable at base, med rec completed/pending provider's approval, VSS, will continue to monitor.
--- NOTE | 2023-03-25 09:29 | PHA.MEDREC ---
Pharmacy Consult ? Medication Reconciliation Pharmacy has completed the medication reconciliation. Called care home to confirm meds.
[2023-03-25] MEDS: DULoxetine HCl 60 MG CAPSULE.DR PO (09:47)
[2023-03-25] MEDS: Omeprazole 20 MG CAPSULE.DR PO (09:47)
[2023-03-25] MEDS: Benztropine Mesylate 0.5 MG TABLET PO ×2 (09:47→19:44)
[2023-03-25] MEDS: Docusate Sodium 100 MG CAPSULE PO ×2 (09:47→19:44)
[2023-03-25] MEDS: Loratadine 10 MG TABLET PO (09:47)
[2023-03-25] MEDS: Ferrous Sulfate 324 MG TABLET.DR PO (09:47)
[2023-03-25] MEDS: cloNIDine HCL 0.1 MG TABLET PO ×2 (09:47→19:44)
[2023-03-25 10:00] VITALS: BP 125/66; PULSE 65; RESP 18; TEMP 36.3; O2SAT 98
[2023-03-25] MEDS: HaloperidoL 5 MG TABLET PO ×2 (10:26→19:44)
[2023-03-25] MEDS: hydrOXYzine HCL 50 MG TABLET PO ×2 (10:26→19:44)
[2023-03-25] MEDS: Lithium Carbonate 300 MG CAPSULE PO (18:35)
--- NOTE | 2023-03-25 18:44 | PC.NURSE ---
Stella on 1:1 for SI and self harming. No episodes of SH behavior on day shift. Sister visited which Stella reported as being good. Appetite fair. Medication compliant. 1500 Clonidine held due to her being asleep.
[2023-03-25] MEDS: diphenhydrAMINE HCL 25 MG CAPSULE 100 MG PO (19:44)
[2023-03-25] MEDS: Zolpidem Tartrate 5 MG TABLET PO (19:44)
[2023-03-25] MEDS: traZODone HCL 100 MG TABLET 200 MG PO (19:44)
[2023-03-25 19:45] VITALS: BP 128/74; PULSE 71; RESP 18; TEMP 36.4; O2SAT 97
[2023-03-25] MEDS: Prazosin HCL 1 MG CAPSULE PO (19:45)
[2023-03-25 20:00] LABS: MANUAL DIFF FLAG NO
[2023-03-25 20:10] LABS: Basophils Percent Auto 0.5 % (0-2); Eosinophils Absolute Auto 0.2 X10*3/uL (0.0-0.4); Eosinophils Percent Auto 2.4 % (0-4); Hematocrit 36.3 % (37.0-47.0); Hemoglobin 11.8 g/dl (12.0-16.0); Imm Gran Abs Auto 0.01 X10*3/uL (0.00-0.03); Imm Gran Pct Auto 0.2 % (0.0-0.4); Lymphocytes Percent Auto 32.6 % (20-40); Mean Corpuscular HGB Conc 32.5 g/dl (31.0-35.0); Mean Corpuscular Hemoglobin 29.4 pg (27.0-33.0); Mean Corpuscular Volume 90.3 fL (80.0-98.0); Mean Platelet Volume 10.9 fL (9.4-12.3); Monocytes Absolute Auto 0.5 X10*3/uL (0.1-1.2); Monocytes Percent Auto 7.8 % (2-11); Neutrophils Absolute Auto 3.5 x10*3/uL (2.0-8.3); Neutrophils Percent Auto 56.5 % (45-73); Platelet Count 191 X10*3/uL (160-400); Red Blood Count 4.02 X10*6/uL (4.20-5.50); Red Cell Distribution Width 12.9 % (11.0-16.0); White Blood Count 6.2 X10*3/uL (4.8-10.8)
[2023-03-25 20:13] LABS: Lithium 0.39 mmol/L (0.60-1.20)
[2023-03-25 20:20] LABS: Alanine Aminotransferase 9 U/L (0-31); Albumin Level 3.7 g/dL (3.5-5.0); Alkaline Phosphatase 58 U/L (39-117); Anion Gap 10 (12-20); Aspartate Amino Transferase 10 U/L (5-31); Bilirubin Total 0.4 mg/dL (0.0-1.0); Blood Urea Nitrogen 8 mg/dL (9-16); Carbon Dioxide 23 mmol/L (22-29); Chloride 111 mmol/L (96-108); Creatinine Clr Calc Pharmacy 96.2; Estimated Glomerular Filt Rate > 60; Ethanol < 10 mg/dL; Glucose Random 85 mg/dL (60-115); Potassium 3.7 mmol/L (3.3-5.1); Sodium 140 mmol/L (135-145); Total Protein 6.5 g/dL (6.5-8.0)
[2023-03-25 20:21] LABS: Acetaminophen LAB < 17 mcg/mL (<30); Salicylate < 5.0 mg/dL (15-30)
[2023-03-25] MEDS: Acetaminophen 325 MG TABLET 650 MG PO (20:27)
[2023-03-25] MEDS: Nystatin Powder 15 GM BOTTLE 1 APPL TOPICAL (20:40)
--- NOTE | 2023-03-26 06:07 | PC.NURSE ---
Patient slept through the night, no distress observed/reported, disposition per [facility] is section 12 inpatient bed search, behavior non concerning, medication compliant, VSS, labs completed and resulted, observation 1:1 for safety, will continue to monitor.
[2023-03-26 07:32] VITALS: BP 129/78; PULSE 72; RESP 15; TEMP 36.6; O2SAT 96
[2023-03-26] MEDS: DULoxetine HCl 60 MG CAPSULE.DR PO (07:33)
[2023-03-26] MEDS: Ferrous Sulfate 324 MG TABLET.DR PO (07:33)
[2023-03-26] MEDS: Docusate Sodium 100 MG CAPSULE PO ×2 (07:33→21:38)
[2023-03-26] MEDS: cloNIDine HCL 0.1 MG TABLET PO ×3 (07:33→21:42)
[2023-03-26] MEDS: Fluticasone/Vilanterol 200/25 BLST.W.DEV 1 PUFF INHALE (07:34)
[2023-03-26] MEDS: Omeprazole 20 MG CAPSULE.DR PO (07:34)
[2023-03-26] MEDS: Benztropine Mesylate 0.5 MG TABLET PO ×2 (07:34→21:41)
[2023-03-26] MEDS: Loratadine 10 MG TABLET PO (07:34)
[2023-03-26] MEDS: hydrOXYzine HCL 50 MG TABLET PO ×2 (07:42→19:43)
[2023-03-26] MEDS: HaloperidoL 5 MG TABLET PO ×2 (07:42→15:52)
--- NOTE | 2023-03-26 08:12 | ECG_ITS ---
Test Reason : psych meds Blood Pressure : / mmHG Vent. Rate : 069 BPM Atrial Rate : 069 BPM P-R Int : 140 ms QRS Dur : 070 ms QT Int : 416 ms P-R-T Axes : 073 079 041 degrees QTc Int : 445 ms Normal sinus rhythm Normal ECG When compared with ECG of 05-MAR-2023 21:53, No significant change was found Referred By: Danilo Foster Electronically Signed By:Phillip Alex
[2023-03-26 09:46] LABS: COVID-19 Test Negative (Negative); IDNOW Serial# 08D9AD1C
[2023-03-26] MEDS: LORazepam 1 MG TABLET 2 MG PO (11:35)
[2023-03-26] MEDS: Lithium Carbonate 300 MG CAPSULE PO (15:52)
--- NOTE | 2023-03-26 16:38 | PC.NURSE ---
Stella remains on a 1:1 for safety. This shift Stella has had some increased agitation evidenced by her banging her head on the wall and punching herself. Stella was easy to redirect and was given Lorazepam 2mg PO per request x1 with good effect, Appetite is good and Stella took a shower this shift.
--- NOTE | 2023-03-26 19:49 | PC.NURSE ---
PT endorsing increased anxiety. Requested PRN medication and gingerale. Administered medication as per OCT.
[2023-03-26] MEDS: Prazosin HCL 1 MG CAPSULE PO (21:38)
[2023-03-26] MEDS: diphenhydrAMINE HCL 25 MG CAPSULE 100 MG PO (21:38)
[2023-03-26] MEDS: Zolpidem Tartrate 5 MG TABLET PO (21:41)
[2023-03-26 21:42] VITALS: BP 121/59; PULSE 78; RESP 18; O2SAT 98
[2023-03-27 06:23] VITALS: BP 104/59; PULSE 54; RESP 16; TEMP 36.4; O2SAT 96
[2023-03-27] MEDS: hydrOXYzine HCL 50 MG TABLET PO (07:22)
--- NOTE | 2023-03-27 09:03 | PC.NURSE ---
assumed care of this pt at 0700. 0720 1:1 staff reported that the pt was punching herself in the head. PRN anxiety med offered and was accepted by pt. pt resting quietly at this time, 1:1 staff remains at bedside. will continue to observe.
--- NOTE | 2023-03-27 10:16 | PC.NURSE ---
morning meds not given at scheduled time because pt sleeping. will given when pt awake. 1:1 staff remains at bedside. will continue to observe.
[2023-03-27] MEDS: DULoxetine HCl 60 MG CAPSULE.DR PO (11:11)
[2023-03-27] MEDS: Omeprazole 20 MG CAPSULE.DR PO (11:11)
[2023-03-27] MEDS: Ferrous Sulfate 324 MG TABLET.DR PO (11:11)
[2023-03-27] MEDS: Benztropine Mesylate 0.5 MG TABLET PO (11:11)
[2023-03-27] MEDS: cloNIDine HCL 0.1 MG TABLET PO (11:11)
[2023-03-27] MEDS: Docusate Sodium 100 MG CAPSULE PO (11:12)
[2023-03-27] MEDS: HaloperidoL 5 MG TABLET PO (11:13)
--- NOTE | 2023-03-27 11:21 | PC.NURSE ---
pt punching herself in the head and banging her head on the wall. PRN med given along with scheduled meds per order. 1:1 staff remains at bedside. will continue to observe.
[2023-03-27] MEDS: Acetaminophen 325 MG TABLET 650 MG PO (13:13)
== END 2023-03-27 13:44 | disposition home or self-care (01) ==
PROVIDERS: Internal Medicine; Student in an Organized Health Care Education/Training Program; Emergency Provider Emergency Medicine Emergency Medical Services
DX: F25.1 Schizoaffective disorder, depressive type (principal); R45.851 Suicidal ideations; F43.12 Post-traumatic stress disorder, chronic; F11.10 Opioid abuse, uncomplicated; F17.210 Nicotine dependence, cigarettes, uncomplicated; Z71.6 Tobacco abuse counseling; Z20.822 Contact with and (suspected) exposure to COVID-19; Z20.828 Contact with and (suspected) exposure to other viral communicable diseases; Z79.899 Other long term (current) drug therapy
CPT/HCPCS: 36415; 80053; 80143; 80178; 80179; 80307; 81001; 81025; 85025; 87635; 93005; 96372; 99285; S9485

== ENCOUNTER → 2023-03-26 08:12 | Outpatient (BNV) | payer OTHER, SELFPAY | PROVIDERS: Emergency Provider Internal Medicine; Visit Provider Internal Medicine Cardiovascular Disease | DX: Z51.81 Encounter for therapeutic drug level monitoring (principal) | CPT/HCPCS: 93010 ==

== ENCOUNTER 2023-03-28 20:51 | Inpatient (IN) | payer OTHER, SELFPAY ==
--- NOTE | ~2023-03-28 | CT_ITS ---
EXAMINATION: CT HEAD WITHOUT CONTRAST CLINICAL INFORMATION: Head injury COMPARISON: None available. TECHNIQUE: Contiguous axial imaging was performed from the skull base to vertex without intravenous administration of contrast. This CT examination was performed using dose optimization techniques as appropriate, variously including the following: *Automated exposure control *Adjustment of mA and/or kV according to patient size (this includes techniques or standardized protocols for targeted exams where dose is matched to indication/reason for exam; i.e. extremities or head) *Use of iterative reconstruction technique DLP: 626 mGy-cm FINDINGS: There is no acute intra-axial, extra-axial bleed, masses or midline shift. There is no acute infarction in evolution. There is no edema. The east to white matter differentiation is maintained normal. Bone windows reveal no calvarial abnormality. There is no scalp soft tissue abnormality. Bilateral paranasal sinuses and mastoid air cells are well-aerated. CT/CT head/brain wo IV con IMPRESSION: No acute intracranial process seen.
[2023-03-28 21:20] VITALS: BP 127/72; PULSE 83; RESP 17; TEMP 36.7; O2SAT 97; BMI 42.4
--- NOTE | 2023-03-28 21:35 | ED_ITS ---
HPI - Psych General Chief Complaint: Psychiatric Symptoms Stated Complaint: SECTION 12 SI WITH PLAN Time Seen by Provider: 03/28/23 21:33 Source: patient Mode of arrival: EMS Limitations: no limitations History of Present Illness HPI Narrative: Patient comes to the emergency room complaining of suicidal ideation. Patient was walking into oncoming traffic. Patient was Section 12 from the community. Related Data Home Medications Medication Instructions Recorded Confirmed acetaminophen 500 mg tablet 1 tab PO Q6H PRN pain 08/14/22 03/25/23 albuterol sulfate 90 mcg/actuation 2 puff inhalation BID PRN Wheezing 08/14/22 03/25/23 aerosol inhaler (ProAir HFA) diphenhydramine HCl 50 mg capsule 2 cap PO BEDTIME 08/14/22 03/24/23 (Banophen) haloperidol 5 mg tablet 1 tab PO TID PRN Agitation 08/14/22 03/25/23 hydroxyzine pamoate 50 mg capsule 1 cap PO BID PRN Anxiety 08/14/22 03/25/23 nicotine (polacrilex) 2 mg gum 2 mg buccal Q2H PRN Smoking 08/14/22 03/25/23 Cessation omeprazole 20 mg tablet,delayed 20 mg PO DAILY 08/14/22 03/24/23 release zolpidem 10 mg tablet 1 tab PO BEDTIME 08/14/22 03/24/23 cetirizine 10 mg tablet 1 tab PO DAILY 10/07/22 03/24/23 fluticasone propionate 230 2 puff inhalation BID 10/07/22 03/24/23 mcg-salmeterol 21 mcg/actuation HFA inhaler (Advair HFA) benztropine 0.5 mg tablet 1 tab PO BID 10/26/22 03/24/23 clonidine HCl 0.1 mg tablet 1 tab PO TID 10/26/22 03/24/23 duloxetine 60 mg capsule,delayed 1 cap PO DAILY 10/26/22 03/24/23 release haloperidol decanoate 100 mg/mL 100 mg IM Q4W 10/26/22 03/24/23 intramuscular solution lithium carbonate 300 mg tablet 300 mg PO DAILY@1700 10/26/22 03/24/23 prazosin 1 mg capsule 1 mg PO BEDTIME 12/25/22 03/24/23 trazodone 100 mg tablet 200 mg PO BEDTIME PRN Insomnia 12/25/22 03/25/23 lorazepam 1 mg tablet 1 mg PO TID PRN Anxiety 03/25/23 03/25/23 prazosin 5 mg capsule 15 mg PO BEDTIME 03/25/23 03/25/23 Allergies Allergy/AdvReac Type Severity Reaction Status Date / Time carbamazepine [From TEGRETOL] AdvReac Mild Nausea and Verified 03/10/23 10:29 Vomiting topiramate [From Topamax] AdvReac Mild Nausea and Verified 03/10/23 10:29 Vomiting Review of Systems Review of Systems: Constitutional : No Weight loss, No Fever, No Chills, No Night Sweats, No Fatigue, No Malaise ENT/Mouth : No Hearing loss, No Ear Pain, No Nasal Congestion, No Sinus Pain, No Hoarseness, No sore throat, No Rhinorrhea, No Swallowing Difficulty Eyes: No Eye Pain, No Swelling, No Redness, No Foreign Body, No Discharge, No Vision Changes Cardiovascular : No Chest Pain, No SOB, No Dyspnea on Exertion, No Orthopnea, No Edema, No Palpitations Respiratory : No Cough, No Sputum, No Wheezing, No Smoke Exposure, No Dyspnea Gastrointestinal : No Nausea, No Vomiting, No Diarrhea, No Constipation, No abdominal Pain, No Hematochezia, No Melena Genitourinary : no irregular bleeding, No Dysuria, No Urinary Frequency, No Hematuria, No Urinary Incontinence, No Urgency, No Flank Pain, No Urinary Flow Changes, No Hesitancy Musculoskeletal : No joint pain, No Myalgias, No Joint Swelling Skin : No Skin Lesions, No rash Neuro : No Weakness, No Numbness, No Paresthesias, No Loss of Consciousness, No Dizziness, No Headache Psych : No Anxiety/Panic, bowing of depression, suicidal ideation, no homicidal ideation Heme/Lymph: No Bruising, No Bleeding,No Lymphadenopathy Endocrine : No Polyuria, No Polydipsia, No Temperature Intolerance [facility] Past Medical History Medical History Acute post-traumatic stress disorder Adjustment disorder Anxiety Asthma Borderline personality disorder Chronic post-traumatic stress disorder (PTSD) COPD (chronic obstructive pulmonary disease) COVID-19 COVID-19 Depression GERD (gastroesophageal reflux disease) History of electroconvulsive therapy Increased BMI Injury, self-inflicted Intentional self-harm PTSD (post-traumatic stress disorder) Recurrent major depression-severe Schizoaffective disorder Self-harming behavior Sprain of left foot Suicidal ideation Suicidal ideation Family History Family History Mother Brain cancer Other No family history of cardiac disease Social History Social History Household Members: Other Household Members Other:: [facility] Housing: Assisted Living Facility Housing Other:: [facility] Do you presently have visiting nurse or other home services: No Alcohol intake: never Patient Tobacco Use Status: Current everyday Tobacco user Tobacco use type: Cigarette Cigarette Packs Per Day: 0.5 Cigarettes Per Day: 10.0 Years Smoked: 20 e-Cigarette/Vaping Use: Never Used Second Hand Smoke Exposure: Yes Substance Use Type: Marijuana Advance Directives: No Advance Directives Information Provided: No service: No Sexual orientation: Straight/Heterosexual Physical Exam Vital Signs: Vital Signs: Last Vital Signs Temp 98.0 F 03/28/23 21:20 Pulse 83 03/28/23 21:20 Resp 17 03/28/23 21:20 BP 127/72 03/28/23 21:20 Pulse Ox 97 03/28/23 21:20 O2 Del Method Room Air 03/28/23 21:20 BMI result Body Mass Index 42.4 Const: Other: Appearance: Alert. Oriented X3. No acute distress. Eyes: Pupils equal, round and reactive to light. ENT: Pharynx normal. Neck: Normal inspection. Neck supple. No lymph nodes noted. No crepitus CVS: Normal heart rate and rhythm. Pulses normal. Normal S1 and S2 Respiratory: No respiratory distress. Breath sounds normal. No Wheezing. No rales Abdomen: Soft and nontender. No rigidity. No distention. Skin: Skin warm and dry. Normal skin color. Normal skin turgor. Healing scar in the forehead Extremities: No lower extremity edema. No Lacerations. No Rash Neuro: Oriented X 3. No motor deficit. No sensory deficit. Moving all extremities. No slurred speech. CN 2 through 12 grossly intact Psych: calm, cooperative, normal affect Course Course Course Narrative: -all of patient's labs pending -care team consult pending -patient on a Section 12 follow-up started in the community -physician leanne fleming stayed at 21:40 Discharge Plan Discharge Clinical Impression: Suicidal ideation Patient Disposition: Still a Patient Prescriptions: No Action haloperidol 5 mg tablet 1 tab PO TID PRN (Reason: Agitation) diphenhydramine HCl [Banophen] 50 mg capsule 2 cap PO BEDTIME hydroxyzine pamoate 50 mg capsule 1 cap PO BID PRN (Reason: Anxiety) zolpidem 10 mg tablet 1 tab PO BEDTIME acetaminophen 500 mg tablet 1 tab PO Q6H PRN (Reason: pain) albuterol sulfate [ProAir HFA] 90 mcg/actuation HFA aerosol inhaler 2 puff inhalation BID PRN (Reason: Wheezing) nicotine (polacrilex) 2 mg Gum 2 mg BUCCAL Q2H PRN (Reason: Smoking Cessation) omeprazole 20 mg Tablet,Delayed Release (Dr/Ec) 20 mg PO DAILY lithium carbonate 300 mg tablet 300 mg PO DAILY@1700 clonidine HCl 0.1 mg tablet 1 tab PO TID benztropine 0.5 mg tablet 1 tab PO BID haloperidol decanoate 100 mg/mL solution 100 mg IM Q4W Rx Instructions: NEXT DOSE: 04/16/23 duloxetine 60 mg capsule,delayed release(DR/EC) 1 cap PO DAILY cetirizine 10 mg tablet 1 tab PO DAILY fluticasone propion-salmeterol [Advair HFA] 230-21 mcg/actuation HFA aerosol inhaler 2 puff INHALATION BID prazosin 1 mg capsule 1 mg PO BEDTIME Rx Instructions: TAKE WITH 15MG FOR TOTAL DOSE OF 16MG PM trazodone 100 mg tablet 200 mg PO BEDTIME PRN (Reason: Insomnia) lorazepam 1 mg tablet 1 mg PO TID PRN (Reason: Anxiety) prazosin 5 mg capsule 15 mg PO BEDTIME Rx Instructions: TAKE WITH 1 MG FOR TOTAL DOSE 16MG PM
--- NOTE | 2023-03-28 21:50 | MHC.EDTECH ---
belonging list completed and signed by pt and t/w. belongings placed in linen closet in POD.
[2023-03-28 22:34] LABS: Amphetamine Screen Urine Not Detected (Not Detect); Barbiturates, Urine Not Detected (Not Detect); Benzodiazepines Screen Urine Not Detected (Not Detect); Cannabinoid Screen Urine POSITIVE (Not Detect); Cocaine Screen Urine Not Detected (Not Detect); Fentanyl, urine POSITIVE (Not Detect); Opiate Screen Urine Not Detected (Not Detect); Phencyclidine Screen Urine Not Detected (Not Detect)
[2023-03-28 22:44] LABS: Alanine Aminotransferase 9 U/L (0-31); Albumin Level 3.9 g/dL (3.5-5.0); Alkaline Phosphatase 67 U/L (39-117); Anion Gap 11 (12-20); Aspartate Amino Transferase 11 U/L (5-31); Bilirubin Total 0.2 mg/dL (0.0-1.0); Blood Urea Nitrogen 5 mg/dL (9-16); Carbon Dioxide 21 mmol/L (22-29); Chloride 109 mmol/L (96-108); Creatinine Clr Calc Pharmacy 97.2; Estimated Glomerular Filt Rate > 60; Ethanol < 10 mg/dL; Glucose Random 123 mg/dL (60-115); Potassium 3.7 mmol/L (3.3-5.1); Sodium 137 mmol/L (135-145); Total Protein 6.8 g/dL (6.5-8.0)
[2023-03-28 22:50] LABS: COVID-19 Test Negative (Negative); IDNOW Serial# 08D9AD1C
[2023-03-29 04:01] LABS: Hematocrit 34.5 % (37.0-47.0); Hemoglobin 11.4 g/dl (12.0-16.0); Mean Corpuscular Hemoglobin 29.5 pg (27.0-33.0); Mean Corpuscular Volume 89.1 fL (80.0-98.0); Mean Platelet Volume 10.8 fL (9.4-12.3); Platelet Count 233 X10*3/uL (160-400); Red Blood Count 3.87 X10*6/uL (4.20-5.50); Red Cell Distribution Width 12.7 % (11.0-16.0)
[2023-03-29 06:00] VITALS: BP 95/59; PULSE 100; RESP 18; TEMP 36.1; O2SAT 97
--- NOTE | 2023-03-29 07:49 | PC.NURSE ---
patient sleeping in stretcher in front of the nurses station, patient respirations equal and unlabored. no signs of distress, patient has 1:1 sitter
--- NOTE | 2023-03-29 08:13 | PC.NURSE ---
pt declining ua states she gave one yesterday. patient sleeping, will readdress when more awake
--- NOTE | 2023-03-29 08:46 | ECG_ITS ---
Test Reason : med clearance Blood Pressure : / mmHG Vent. Rate : 063 BPM Atrial Rate : 063 BPM P-R Int : 146 ms QRS Dur : 072 ms QT Int : 426 ms P-R-T Axes : 070 061 025 degrees QTc Int : 435 ms Normal sinus rhythm Normal ECG When compared with ECG of 26-MAR-2023 08:48, No significant change was found Referred By: Rosi Barcenas Electronically Signed By:DONAL HAAS MD
[2023-03-29 08:51] LABS: Appearance Urine Clear; Color Urine Yellow; Glucose Urine UA Negative (Negative); Leukocyte Esterase Urine Negative (Negative); Nitrite Urine Negative (Negative); Urine Blood Negative (Negative); Urine Ketones Negative (Negative); Urine Protein Negative (Neg-Trace)
--- NOTE | 2023-03-29 09:32 | PC.NURSE ---
Neli from care team stated patients plan is to be d/c and not to be admitted.
--- NOTE | 2023-03-29 11:42 | PC.NURSE ---
PT WITH HUGO FROM CARE TEAM FOR ASSESSMENT, SHE IS NOW BANGING HER HEAD ON THE WALL. FOREHEAD WOUND IS OPEN AND BLEEDING. PT HAS BECOME MORE OUTWARDLY AGITATED
--- NOTE | 2023-03-29 12:29 | PHA.MEDREC ---
Pharmacy Consult ? Medication Reconciliation Pharmacy has completed the medication reconciliation. med rec done 4 days ago. Verified with claim history.
--- NOTE | 2023-03-29 12:34 | PC.NURSE ---
PT CONTINUES TO DEMONSTRATE AGITATED BEHAVIORS, SHE WAS IN THE BATHROOM AND BEGAN HITTING HER HEAD AGAINST THE WALL, SHE WAS REDIRECTABLE BACK TO BED, DSD PLACED ON FOREHEAD
--- NOTE | 2023-03-29 14:07 | MHC.CARE ---
Patient evaluated by the CARE Team and found to need an inpatient psychiatric treatment, she will remain in the ED until a placement is secured.
--- NOTE | 2023-03-29 14:13 | PC.NURSE ---
PT SLEEPING, SHE HAS NOT DISPLAYED ANY FURTHER SELF HARM BEHAVIORS
--- NOTE | 2023-03-29 15:24 | PC.NURSE ---
PT IS A IP BED SEARCH SLEEPING WITH NON LABORED EQUAL RESP 1:1 SITTER REMAINS
[2023-03-29] MEDS: HaloperidoL 5 MG TABLET PO (16:24)
[2023-03-29] MEDS: Lithium Carbonate 300 MG CAPSULE PO (16:47)
[2023-03-29] MEDS: LORazepam 1 MG TABLET PO (16:47)
[2023-03-29] MEDS: hydrOXYzine HCL 50 MG TABLET PO (20:31)
[2023-03-29] MEDS: traZODone HCL 100 MG TABLET 200 MG PO (20:31)
[2023-03-29] MEDS: Prazosin HCL 5 MG CAPSULE 15 MG PO (20:32)
[2023-03-29] MEDS: Zolpidem Tartrate 5 MG TABLET 10 MG PO (20:32)
[2023-03-29] MEDS: diphenhydrAMINE HCL 25 MG CAPSULE 100 MG PO (20:33)
[2023-03-29] MEDS: cloNIDine HCL 0.1 MG TABLET PO (20:33)
[2023-03-29] MEDS: Prazosin HCL 1 MG CAPSULE PO (20:33)
[2023-03-29] MEDS: Benztropine Mesylate 0.5 MG TABLET PO (20:42)
--- NOTE | 2023-03-29 21:31 | PC.NURSE ---
pt returned from the bathroom with 2 staff, when pt returned to her room, she began to hit her head on the wall, tech intervene with the sitter. no new bruises observed
[2023-03-30 06:07] VITALS: BP 120/76; PULSE 88; RESP 17; TEMP 36.6; O2SAT 97
[2023-03-30] MEDS: DULoxetine HCl 60 MG CAPSULE.DR PO (10:08)
[2023-03-30] MEDS: hydrOXYzine HCL 50 MG TABLET PO (10:08)
[2023-03-30] MEDS: cloNIDine HCL 0.1 MG TABLET PO ×3 (10:08→21:32)
[2023-03-30] MEDS: Omeprazole 20 MG CAPSULE.DR PO (10:08)
[2023-03-30] MEDS: Benztropine Mesylate 0.5 MG TABLET PO ×2 (10:08→21:33)
[2023-03-30] MEDS: Loratadine 10 MG TABLET PO (10:09)
[2023-03-30] MEDS: HaloperidoL 5 MG TABLET PO ×2 (10:09→19:23)
[2023-03-30] MEDS: LORazepam 1 MG TABLET PO ×2 (10:45→19:22)
[2023-03-30 11:09] VITALS: BP 102/65; PULSE 74; RESP 18; O2SAT 96
[2023-03-30 11:10] VITALS: RESP 16
--- NOTE | 2023-03-30 11:14 | PC.NURSE ---
Addendum entered by Rodolfo Adkins 03/30/23 11:24: pt reports si/denies hi; refusing to tell plan to this RN. Original Note: pt axox4, respirations even and unlabored, vss, skin wpd. pt had episode of banging head against wall; scant amount of blood present on forehead; no s+s infection; gauze applied to detere pt from picking. pt redirected by nurse; prn medications given. cv signed. awaiting bed assignment; 1:1 sitter at bedside. pt appears calm at this time; resting in bed.
[2023-03-30 11:51] VITALS: RESP 18
[2023-03-30 16:18] VITALS: BMI 43.4
--- NOTE | 2023-03-30 17:01 | PC.NURSE ---
Stella was [place] at 1545 [place] [facility] [place] for exacerbation of command auditory hallucinations and self harming behaviors. Stella reports that her recent birthday was the trigger of the exacerbation, She is alert, minimally interactive but pleasant on admission. She requested to be allowed to sleep so the majority of assessment is gleaned from crisis eval and pt's past history. Mood is depressed. Affect is sad and irritable. She reports command auditory hallucinations which tell her to harm and kill herself. Stella does not express any paranoid delusional thought process at present. Thought Process slowed. She confirms ideation, plan and intent to harm self but denies ideation, plan or intent to harm others. Appetite is poor with no associated weight loss. Sleep is reportedly poor. Focus is impaired. Tox screen was positive for fentanyl and marijuana Medical Issues?include a 3 x 5 contusion on her forehead which she self inflicted from head banging in the pod yesterday. She denies current physical complaint. Stella is placed on 1:1 for safety.
[2023-03-30] MEDS: Lithium Carbonate 300 MG CAPSULE PO (19:22)
[2023-03-30 20:20] VITALS: BP 106/60; PULSE 86; RESP 18; TEMP 36.8; O2SAT 97
[2023-03-30] MEDS: Prazosin HCL 5 MG CAPSULE 15 MG PO (21:32)
[2023-03-30] MEDS: Zolpidem Tartrate 5 MG TABLET 10 MG PO (21:32)
[2023-03-30] MEDS: diphenhydrAMINE HCL 25 MG CAPSULE 100 MG PO (21:32)
[2023-03-30] MEDS: Prazosin HCL 1 MG CAPSULE PO (21:33)
[2023-03-31 08:45] VITALS: BP 112/74; PULSE 79; RESP 18; TEMP 36.6; O2SAT 98
[2023-03-31] MEDS: DULoxetine HCl 60 MG CAPSULE.DR PO (09:01)
[2023-03-31 09:02] LABS: Estimated Average Glucose 94 mg/dL; Hemoglobin A1c % 4.9 %
[2023-03-31] MEDS: LORazepam 1 MG TABLET PO ×3 (09:02→22:23)
[2023-03-31] MEDS: cloNIDine HCL 0.1 MG TABLET PO ×2 (09:02→20:43)
[2023-03-31] MEDS: Benztropine Mesylate 0.5 MG TABLET PO ×2 (09:02→20:43)
[2023-03-31] MEDS: Omeprazole 20 MG CAPSULE.DR PO (09:03)
[2023-03-31] MEDS: Loratadine 10 MG TABLET PO (09:03)
[2023-03-31 09:08] LABS: Alanine Aminotransferase 10 U/L (0-31); Albumin Level 4.1 g/dL (3.5-5.0); Alkaline Phosphatase 63 U/L (39-117); Anion Gap 12 (12-20); Aspartate Amino Transferase 9 U/L (5-31); Bilirubin Total 0.4 mg/dL (0.0-1.0); Blood Urea Nitrogen 9 mg/dL (9-16); Calcium 9.6 mg/dL (8.4-10.2); Carbon Dioxide 24 mmol/L (22-29); Chloride 108 mmol/L (96-108); Cholesterol 166 mg/dL; Creatinine Clr Calc Pharmacy 81.3; Estimated Glomerular Filt Rate > 60; Glucose Fasting 99 mg/dL (60-99); HDL Cholesterol 46 mg/dL; LDL Cholesterol Calculated 102 mg/dl; Potassium 4.2 mmol/L (3.3-5.1); Sodium 140 mmol/L (135-145); Total Protein 7.3 g/dL (6.5-8.0); Triglycerides 94 mg/dL
[2023-03-31 09:25] LABS: Free T4 (Free Thyroxine) 1.02 ng/dL (0.71-1.85); Thyroid Stimulating Hormone 2.62 uIU/mL (0.32-4.0)
[2023-03-31 09:37] LABS: Folate 6.2 ng/mL (> or = 4.0); Vitamin B12 284 pg/mL (200-900)
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
[2023-03-31] MEDS: Nicotine 21 MG PATCH.TD24 TRANSDERMA (14:02)
[2023-03-31] MEDS: HaloperidoL 5 MG TABLET PO ×2 (14:07→20:43)
[2023-03-31] MEDS: Acetaminophen 325 MG TABLET 650 MG PO ×2 (14:18→19:59)
[2023-03-31] MEDS: Lithium Carbonate 300 MG CAPSULE PO (17:03)
--- NOTE | 2023-03-31 17:06 | PM.EVENT ---
Event Note Date of Service: 03/31/23 Event Note: 38-year-old female with history of asthma/COPD overlap, schizoaffective disorder, GERD, borderline personality disorder admitted to Psychiatry consult placed to hospital service for ECT clearance. She has undergone ECT in the past without adverse effect most recently last month. She has no known history of seizure disorder and denies any known history of cardiovascular disease or CHF. She is able to ambulate for distance and [place] and stairs without any dyspnea on exertion or chest pain. She currently denies any shortness of breath, wheezing, lightheadedness, palpitations, or chest pain. COPD/asthma is well controlled. Reviewed EKG which shows normal sinus rhythm without any significant ST/T-wave abnormality. QTC within normal limits. At this time is not see any medical contraindications to patient undergoing ECT treatments. Time Spent With Patient Time: Total time managing care of this patient today ____ minutes.
[2023-03-31] MEDS: Zolpidem Tartrate 5 MG TABLET 10 MG PO (20:42)
[2023-03-31] MEDS: diphenhydrAMINE HCL 25 MG CAPSULE 100 MG PO (20:42)
[2023-03-31] MEDS: Prazosin HCL 1 MG CAPSULE PO (20:42)
[2023-03-31] MEDS: Prazosin HCL 5 MG CAPSULE 15 MG PO (20:42)
[2023-03-31] MEDS: traZODone HCL 100 MG TABLET 200 MG PO (20:43)
[2023-03-31 20:49] VITALS: BP 154/71; PULSE 77; TEMP 36.6; O2SAT 99
[2023-03-31] MEDS: hydrOXYzine HCL 50 MG TABLET PO (22:23)
[2023-04-01] MEDS: hydrOXYzine HCL 50 MG TABLET PO (01:19)
[2023-04-01] MEDS: HaloperidoL 5 MG TABLET PO ×2 (01:19→12:36)
--- NOTE | 2023-04-01 09:17 | HO.PSYCHPN ---
Subjective Subjective Date of Service: 04/01/23 Reason For Visit: SI/SIB Subjective Notes: Conditional Voluntary Interim History: Reviewed in team and . Patient reports feeling depressed and irritable today. Patient stated, I'm glad I got cleared for ECT. I'm trying to not bang my head but it's hard . Patient reports she continues to have suicidal ideation with no plan. Patient states she will try to stay out of bed and go to more groups today . Medication Compliance: Yes Side effects from medications: No Attending Groups: Intermittent Review of Systems Review of Systems Constitutional : No Weight loss, No Fever, No Chills, No Night Sweats, No Fatigue, No Malaise ENT/Mouth : No Hearing loss, No Ear Pain, No Nasal Congestion, No Sinus Pain, No Hoarseness, No sore throat, No Rhinorrhea, No Swallowing Difficulty Eyes: No Eye Pain, No Swelling, No Redness, No Foreign Body, No Discharge, No Vision Changes Cardiovascular : No Chest Pain, No SOB, No Dyspnea on Exertion, No Orthopnea, No Edema, No Palpitations Respiratory : No Cough, No Sputum, No Wheezing, No Smoke Exposure, No Dyspnea Gastrointestinal : No Nausea, No Vomiting, No Diarrhea, No Constipation, No abdominal Pain, No Hematochezia, No Melena Genitourinary : no irregular bleeding, No Dysuria, No Urinary Frequency, No Hematuria, No Urinary Incontinence, No Urgency, No Flank Pain, No Urinary Flow Changes, No Hesitancy Musculoskeletal : No joint pain, No Myalgias, No Joint Swelling Skin : No Skin Lesions, No rash Neuro : No Weakness, No Numbness, No Paresthesias, No Loss of Consciousness, No Dizziness, No Headache Psych : No Anxiety/Panic, bowing of depression, suicidal ideation, no homicidal ideation Heme/Lymph: No Bruising, No Bleeding,No Lymphadenopathy Endocrine : No Polyuria, No Polydipsia, No Temperature Intolerance Constitutional: Reports as per HPI Eyes: Reports as per HPI Reports as per HPI Cardiovascular: Reports as per HPI Respiratory: Reports as per HPI Gastrointestinal: Reports as per HPI Genitourinary: Reports as per HPI Musculoskeletal: Reports as per HPI Skin/Breast: Reports as per HPI Reports as per HPI Psychiatric: Reports as per HPI Endocrine: Reports as per HPI Hematologic/Lymphatic: Reports as per HPI Allergic/Immunologic: Reports as per HPI Mental Status Exam Mental Status Exam Narrative: Pt is alert and oriented; behavior is cooperative and calm; dressed in casual attire with unkempt hair; mood is described as depressed ; eye contact appropriate; Speech is normal rate, volume and prosody and not pressured; no psychomotor agitation/retardation present; thought process is organized and goal directed; Thought content is on tx; otherwise pertinent to relevant topics and without any delusional content, paranoid ideations or grandiosity; denies HI. Pt reports suicidal ideation with no plan. Denies VH. Reports auditory hallucinations. Patients insight and judgment are poor. Diagnostics Vital Signs (24Hr): Vital Signs - 24 hr 03/31/23 20:49 Temperature 97.9 F Pulse Rate 77 Blood Pressure 154/71 H Pulse Oximetry 99 Oxygen Delivery Method Room Air BMI result Body Mass Index 43.4 Labs 03/29/23 03:52 03/31/23 08:31 Labs: Laboratory Results - last 48 hr 03/31/23 03/31/23 03/31/23 08:31 08:31 08:31 Sodium 140 Potassium 4.2 Chloride 108 Carbon Dioxide 24 Anion Gap 12 BUN 9 Creatinine 0.97 Estim Creat Clear Calc 81.3 Estimated GFR > 60 Fasting Glucose 99 Estimat Average Glucose 94 Hemoglobin A1c % 4.9 Calcium 9.6 D Total Bilirubin 0.4 AST 9 ALT 10 Alkaline Phosphatase 63 Total Protein 7.3 Albumin 4.1 Triglycerides 94 Cholesterol 166 LDL Cholesterol, Calc 102 HDL Cholesterol 46 Vitamin B12 284 Folate 6.2 TSH 2.62 Free T4 1.02 Imaging Radiology Impressions: ITS Impressions Head CT 03/30/23 14:24 IMPRESSION: No acute intracranial process seen. Medications Medications Current Medications Acetaminophen (Acetaminophen 325 Mg Tablet) 650 mg PO Q6H PRN PRN Reason: pain Last Admin: 03/31/23 19:59 Dose: 650 mg Al Hydroxide/Mg Hydroxide (Magnesium Hydrox/Alum Hydrox 30 Ml Oral.Susp) 30 ml PO Q6H PRN PRN Reason: Heartburn/Nausea Albuterol Sulfate (Albuterol Sulfate 90 Mcg 8 Gm Inhaler) 2 puff INHALE BID PRN PRN Reason: Wheezing Benztropine Mesylate (Benztropine Mesylate 0.5 Mg Tablet) 0.5 mg PO BID [facility] Last Admin: 03/31/23 20:43 Dose: 0.5 mg Clonidine HCl (Clonidine Hcl 0.1 Mg Tablet) 0.1 mg PO TID [facility]; Protocol Last Admin: 03/31/23 20:43 Dose: 0.1 mg Diphenhydramine HCl (Diphenhydramine Hcl 25 Mg Capsule) 100 mg PO BEDTIME [facility] Last Admin: 03/31/23 20:42 Dose: 100 mg Duloxetine HCl (Duloxetine Hcl 60 Mg Capsule.Dr) 60 mg PO DAILY [facility] Last Admin: 03/31/23 09:01 Dose: 60 mg Fluticasone/Vilanterol (Fluticasone/Vilanterol 200/25 Blst.W.Dev) 1 puff INHALE RDAILY [facility] Last Admin: 03/31/23 09:05 Dose: Not Given Haloperidol (Haloperidol 5 Mg Tablet) 5 mg PO TID PRN PRN Reason: Agitation Last Admin: 04/01/23 01:19 Dose: 5 mg Haloperidol Decanoate (Haloperidol Decanoate 50 Mg/Ml Ampul) 100 mg IM Q28D [facility] Hydroxyzine HCl (Hydroxyzine Hcl 50 Mg Tablet) 50 mg PO BID PRN PRN Reason: Anxiety Last Admin: 04/01/23 01:19 Dose: 50 mg [place] Carbonate ([place] Carbonate 300 Mg Capsule) 300 mg PO DAILY@1700 [facility] Last Admin: 03/31/23 17:03 Dose: 300 mg Loratadine (Loratadine 10 Mg Tablet) 10 mg PO DAILY [facility] Last Admin: 03/31/23 09:03 Dose: 10 mg Lorazepam (Lorazepam 1 Mg Tablet) 1 mg PO TID PRN PRN Reason: Anxiety Last Admin: 03/31/23 22:23 Dose: 1 mg Magnesium Hydroxide (Milk Of Magnesia 30 Ml Oral.Susp) 30 ml PO DAILY PRN PRN Reason: Constipation Nicotine (Nicotine 21 Mg Patch.Td24) 21 mg TRANSDERMA DAILY [facility] Last Admin: 03/31/23 14:02 Dose: 21 mg Nicotine Polacrilex (Nicotine Polacrilex 2 Mg Gum) 2 mg BUCCAL Q2H PRN PRN Reason: Smoking Cessation Nicotine Polacrilex (Nicotine Polacrilex 2 Mg Gum) 2 mg BUCCAL Q2H PRN PRN Reason: Nicotine Cravings Omeprazole (Omeprazole 20 Mg Capsule.Dr) 20 mg PO DAILY [facility] Last Admin: 03/31/23 09:03 Dose: 20 mg Prazosin HCl (Prazosin Hcl 1 Mg Capsule) 1 mg PO BEDTIME [facility]; Protocol Last Admin: 03/31/23 20:42 Dose: 1 mg Prazosin HCl (Prazosin Hcl 5 Mg Capsule) 15 mg PO BEDTIME [facility]; Protocol Last Admin: 03/31/23 20:42 Dose: 15 mg Trazodone HCl (Trazodone Hcl 100 Mg Tablet) 200 mg PO BEDTIME PRN PRN Reason: Insomnia Last Admin: 03/31/23 20:43 Dose: 200 mg Zolpidem Tartrate (Zolpidem Tartrate 5 Mg Tablet) 10 mg PO BEDTIME [facility] Last Admin: 03/31/23 20:42 Dose: 10 mg Allergies Allergies Allergy/AdvReac Type Severity Reaction Status Date / Time carbamazepine [From TEGRETOL] AdvReac Mild Nausea and Verified 03/10/23 10:29 Vomiting topiramate [From Topamax] AdvReac Mild Nausea and Verified 03/10/23 10:29 Vomiting Assessment & Plan Assessment & Plan (1) Schizoaffective disorder, depressive type: Status: Chronic Code(s): F25.1 - Schizoaffective disorder, depressive type (2) Suicidal ideation: Status: Acute Code(s): R45.851 - Suicidal ideations (3) Chronic post-traumatic stress disorder (PTSD): Status: Chronic Code(s): F43.12 - Post-traumatic stress disorder, chronic (4) Borderline personality disorder: Status: Chronic Code(s): F60.3 - Borderline personality disorder Plan Patient is a 38 year old female with hx of Schizoaffective d/o, PTSD and borderline personality d/o who was evaluated by N at her assisted d/t urges to self harm and suicidal ideation d/t increased depressive symptoms. Patient has a hx of chronic SI, chronic self-harming behaviors and multiple inpatient admissions. Plan: CV 1:1 sitter (self-harming behaviors) Continue home medications Discuss plan w/ staff at assisted Possibly restart ECT 04/01: Patient reports feeling depressed and irritable today. Patient stated, I'm glad I got cleared for ECT. I'm trying to not bang my head but it's hard . Patient reports she continues to have suicidal ideation with no plan. Patient states she will try to stay out of bed and go to more groups today . Patient educated on: diagnosis, medication risk/benefits, ECT and therapeutic strategies Informed Consent: understands Reason for continued inpatient stay Substantial Risk for: harm to self and med/psych decompensation Time Spent With Patient Time: Total time managing care of this patient today _30___ minutes.
[2023-04-01 10:00] VITALS: BP 114/89; PULSE 60; TEMP 36.6; O2SAT 96
[2023-04-01] MEDS: cloNIDine HCL 0.1 MG TABLET PO ×2 (10:20→15:40)
[2023-04-01] MEDS: DULoxetine HCl 60 MG CAPSULE.DR PO (10:20)
[2023-04-01] MEDS: Loratadine 10 MG TABLET PO (10:20)
[2023-04-01] MEDS: Omeprazole 20 MG CAPSULE.DR PO (10:20)
[2023-04-01] MEDS: Nicotine 21 MG PATCH.TD24 TRANSDERMA (10:21)
[2023-04-01] MEDS: Benztropine Mesylate 0.5 MG TABLET PO (10:21)
[2023-04-01] MEDS: LORazepam 1 MG TABLET PO (12:36)
[2023-04-01] MEDS: Lithium Carbonate 300 MG CAPSULE PO (17:15)
[2023-04-01] MEDS: Acetaminophen 325 MG TABLET 650 MG PO (18:14)
[2023-04-01 20:00] VITALS: BP 120/78; PULSE 63; RESP 18; TEMP 36.8; O2SAT 97
[2023-04-01] MEDS: OLANZapine 10 MG VIAL 5 MG IM (21:40)
--- NOTE | 2023-04-01 21:52 | PC.NURSE ---
Stella is admitted to [facility] for safety, medication management and stabilization, diagnosis schizoaffective DO and BPD. This evening she was reported to be attempting to self harm. On assessment she was punching palm of right hand with her left hand, walking toward a wall moving head in a forward motion mimicking banging her head, verbalizing meds don't work. I'm going to kill myself. You don't even know me or you would know the meds don't work. I want a shot. Give me zyprexa. Staff provided support, MD Hernández updated and order obtained for zyprexa IM. Stella was receptive to take IM by fellow RN whom she is familiar with. She is scheduled for ECT treatment #1 on Wednesday. Safety plan in place, 1:1 close observation.
--- NOTE | 2023-04-02 08:56 | P.PNPSI_ITS ---
Subjective Subjective Date of Service: 04/02/23 Reason For Visit: SI/SIB Subjective Notes: Conditional Voluntary Interim History: Reviewed in team and Dr. Jesus Patient reports she continues to feel depressed today. Patient stated, I'm looking forward to getting ECT. I just want to feel better . Patient laughing and joking at times with staff. Patient reports she continues to have suicidal ideation with no plan. Pt states she did not refuse my medications last night, they just never gave them to me . Medication Compliance: Yes Side effects from medications: No Attending Groups: Intermittent Review of Systems Review of Systems Constitutional : No Weight loss, No Fever, No Chills, No Night Sweats, No Fatigu e, No Malaise ENT/Mouth : No Hearing loss, No Ear Pain, No Nasal Congestion, No Sinus Pain, No Hoarseness, No sore throat, No Rhinorrhea, No Swallowing Difficulty Eyes: No Eye Pain, No Swelling, No Redness, No Foreign Body, No Discharge, No Vision Changes Cardiovascular : No Chest Pain, No SOB, No Dyspnea on Exertion, No Orthopnea, No Edema, No Palpitations Respiratory : No Cough, No Sputum, No Wheezing, No Smoke Exposure, No Dyspnea Gastrointestinal : No Nausea, No Vomiting, No Diarrhea, No Constipation, No abdominal Pain, No Hematochezia, No Melena Genitourinary : no irregular bleeding, No Dysuria, No Urinary Frequency, No Hematuria, No Urinary Incontinence, No Urgency, No Flank Pain, No Urinary Flow Changes, No Hesitancy Musculoskeletal : No joint pain, No Myalgias, No Joint Swelling Skin : No Skin Lesions, No rash Neuro : No Weakness, No Numbness, No Paresthesias, No Loss of Consciousness, No Dizziness, No Headache Psych : No Anxiety/Panic, bowing of depression, suicidal ideation, no homicidal ideation Heme/Lymph: No Bruising, No Bleeding,No Lymphadenopathy Endocrine : No Polyuria, No Polydipsia, No Temperature Intolerance Constitutional: Reports as per HPI Eyes: Reports as per HPI Reports as per HPI Cardiovascular: Reports as per HPI Respiratory: Reports as per HPI Gastrointestinal: Reports as per HPI Genitourinary: Reports as per HPI Musculoskeletal: Reports as per HPI Skin/Breast: Reports as per HPI Reports as per HPI Psychiatric: Reports as per HPI Endocrine: Reports as per HPI Hematologic/Lymphatic: Reports as per HPI Allergic/Immunologic: Reports as per HPI Mental Status Exam Mental Status Exam Narrative: Pt is alert and oriented; behavior is cooperative and calm; dressed in casual attire with unkempt hair; mood is described as depressed ; eye contact appropriate; Speech is normal rate, volume and prosody and not pressured; no psychomotor agitation/retardation present; thought process is organized and goal directed; Thought content is on tx; otherwise pertinent to relevant topics and without any delusional content, paranoid ideations or grandiosity; denies HI. Pt reports suicidal ideation with no plan. Denies VH. Reports auditory hallucinations. Patients insight and judgment are poor. Diagnostics Vital Signs (24Hr): Vital Signs - 24 hr 04/01/23 10:00 04/01/23 20:00 Temperature 97.8 F 98.2 F Pulse Rate 60 63 Respiratory Rate 18 Blood Pressure 114/89 120/78 Pulse Oximetry 96 97 Oxygen Delivery Method Room Air Room Air BMI result Body Mass Index 43.4 Labs 03/29/23 03:52 03/31/23 08:31 Labs: Laboratory Results - last 48 hr 03/31/23 03/31/23 03/31/23 08:31 08:31 08:31 Sodium 140 Potassium 4.2 Chloride 108 Carbon Dioxide 24 Anion Gap 12 BUN 9 Creatinine 0.97 Estim Creat Clear Calc 81.3 Estimated GFR > 60 Fasting Glucose 99 Estimat Average Glucose 94 Hemoglobin A1c % 4.9 Calcium 9.6 D Total Bilirubin 0.4 AST 9 ALT 10 Alkaline Phosphatase 63 Total Protein 7.3 Albumin 4.1 Triglycerides 94 Cholesterol 166 LDL Cholesterol, Calc 102 HDL Cholesterol 46 Vitamin B12 284 Folate 6.2 TSH 2.62 Free T4 1.02 Imaging Radiology Impressions: ITS Impressions Head CT 03/30/23 14:24 IMPRESSION: No acute intracranial process seen. Medications Medications Current Medications Acetaminophen (Acetaminophen 325 Mg Tablet) 650 mg PO Q6H PRN PRN Reason: pain Last Admin: 04/01/23 18:14 Dose: 650 mg Al Hydroxide/Mg Hydroxide (Magnesium Hydrox/Alum Hydrox 30 Ml Oral.Susp) 30 ml PO Q6H PRN PRN Reason: Heartburn/Nausea Albuterol Sulfate (Albuterol Sulfate 90 Mcg 8 Gm Inhaler) 2 puff INHALE BID PRN PRN Reason: Wheezing Benztropine Mesylate (Benztropine Mesylate 0.5 Mg Tablet) 0.5 mg PO BID [facility] Last Admin: 04/01/23 21:47 Dose: Not Given Clonidine HCl (Clonidine Hcl 0.1 Mg Tablet) 0.1 mg PO TID [facility]; Protocol Last Admin: 04/01/23 21:47 Dose: Not Given Diphenhydramine HCl (Diphenhydramine Hcl 25 Mg Capsule) 100 mg PO BEDTIME [facility] Last Admin: 04/01/23 21:47 Dose: Not Given Duloxetine HCl (Duloxetine Hcl 60 Mg Capsule.) 60 mg PO DAILY [facility] Last Admin: 04/01/23 10:20 Dose: 60 mg Fluticasone/Vilanterol (Fluticasone/Vilanterol 200/25 Blst.W.Dev) 1 puff INHALE RDAILY [facility] Last Admin: 04/01/23 10:24 Dose: Not Given Haloperidol (Haloperidol 5 Mg Tablet) 5 mg PO TID PRN PRN Reason: Agitation Last Admin: 04/01/23 12:36 Dose: 5 mg Haloperidol Decanoate (Haloperidol Decanoate 50 Mg/Ml Ampul) 100 mg IM Q28D [facility] Hydroxyzine HCl (Hydroxyzine Hcl 50 Mg Tablet) 50 mg PO BID PRN PRN Reason: Anxiety Last Admin: 04/01/23 01:19 Dose: 50 mg [place] Carbonate ([place] Carbonate 300 Mg Capsule) 300 mg PO DAILY@1700 [facility] Last Admin: 04/01/23 17:15 Dose: 300 mg Loratadine (Loratadine 10 Mg Tablet) 10 mg PO DAILY [facility] Last Admin: 04/01/23 10:20 Dose: 10 mg Lorazepam (Lorazepam 1 Mg Tablet) 1 mg PO TID PRN PRN Reason: Anxiety Last Admin: 04/01/23 12:36 Dose: 1 mg Magnesium Hydroxide (Milk Of Magnesia 30 Ml Oral.Susp) 30 ml PO DAILY PRN PRN Reason: Constipation Nicotine (Nicotine 21 Mg Patch.Td24) 21 mg TRANSDERMA DAILY [facility] Last Admin: 04/01/23 10:21 Dose: 21 mg Nicotine Polacrilex (Nicotine Polacrilex 2 Mg Gum) 2 mg BUCCAL Q2H PRN PRN Reason: Smoking Cessation Nicotine Polacrilex (Nicotine Polacrilex 2 Mg Gum) 2 mg BUCCAL Q2H PRN PRN Reason: Nicotine Cravings Omeprazole (Omeprazole 20 Mg Capsule.Dr) 20 mg PO DAILY [facility] Last Admin: 04/01/23 10:20 Dose: 20 mg Prazosin HCl (Prazosin Hcl 1 Mg Capsule) 1 mg PO BEDTIME [facility]; Protocol Last Admin: 04/01/23 21:47 Dose: Not Given Prazosin HCl (Prazosin Hcl 5 Mg Capsule) 15 mg PO BEDTIME [facility]; Protocol Last Admin: 04/01/23 21:48 Dose: Not Given Trazodone HCl (Trazodone Hcl 100 Mg Tablet) 200 mg PO BEDTIME PRN PRN Reason: Insomnia Last Admin: 03/31/23 20:43 Dose: 200 mg Zolpidem Tartrate (Zolpidem Tartrate 5 Mg Tablet) 10 mg PO BEDTIME [facility] Last Admin: 04/01/23 21:47 Dose: Not Given Allergies Allergies Allergy/AdvReac Type Severity Reaction Status Date / Time carbamazepine [From TEGRETOL] AdvReac Mild Nausea and Verified 03/10/23 10:29 Vomiting topiramate [From Topamax] AdvReac Mild Nausea and Verified 03/10/23 10:29 Vomiting Assessment & Plan Assessment & Plan (1) Schizoaffective disorder, depressive type: Status: Chronic Code(s): F25.1 - Schizoaffective disorder, depressive type (2) Suicidal ideation: Status: Acute Code(s): R45.851 - Suicidal ideations (3) Chronic post-traumatic stress disorder (PTSD): Status: Chronic Code(s): F43.12 - Post-traumatic stress disorder, chronic (4) Borderline personality disorder: Status: Chronic Code(s): F60.3 - Borderline personality disorder Plan Patient is a 38 year old female with hx of Schizoaffective d/o, PTSD and borderline personality d/o who was evaluated by N at her long term d/t urges to self harm and suicidal ideation d/t increased depressive symptoms. Patient has a hx of chronic SI, chronic self-harming behaviors and multiple inpatient admissions. Plan: CV 1:1 sitter (self-harming behaviors) Continue home medications Discuss plan w/ staff at long term Possibly restart ECT 04/01: Patient reports feeling depressed and irritable today. Patient stated, I'm glad I got cleared for ECT. I'm trying to not bang my head but it's hard . Patient reports she continues to have suicidal ideation with no plan. Patient states she will try to stay out of bed and go to more groups today . 04/02: Patient reports she continues to feel depressed today. Patient stated, I'm looking forward to getting ECT. I just want to feel better . Patient laughing and joking at times with staff. Patient reports she continues to have suicidal ideation with no plan. Pt states she did not refuse my medications las t night, they just never gave them to me . Continue tx plan. Will have ECT on Wednesday. Patient educated on: diagnosis, medication risk/benefits, ECT and therapeutic strategies Informed Consent: understands Reason for continued inpatient stay Substantial Risk for: harm to self and med/psych decompensation Time Spent With Patient Time: Total time managing care of this patient today _30___ minutes.
[2023-04-02 10:35] VITALS: PULSE 95; RESP 17; TEMP 36.8; O2SAT 98
[2023-04-02] MEDS: cloNIDine HCL 0.1 MG TABLET PO ×3 (10:44→20:00)
[2023-04-02] MEDS: Loratadine 10 MG TABLET PO (10:44)
[2023-04-02] MEDS: DULoxetine HCl 60 MG CAPSULE.DR PO (10:45)
[2023-04-02] MEDS: Omeprazole 20 MG CAPSULE.DR PO (10:45)
[2023-04-02] MEDS: HaloperidoL 5 MG TABLET PO ×2 (10:46→18:39)
[2023-04-02] MEDS: LORazepam 1 MG TABLET PO ×2 (10:46→19:23)
[2023-04-02] MEDS: Benztropine Mesylate 0.5 MG TABLET PO ×2 (10:46→20:00)
[2023-04-02] MEDS: Nicotine 21 MG PATCH.TD24 TRANSDERMA (10:46)
[2023-04-02] MEDS: Fluticasone/Vilanterol 200/25 BLST.W.DEV 1 PUFF INHALE (10:47)
[2023-04-02] MEDS: Acetaminophen 325 MG TABLET 650 MG PO (12:09)
[2023-04-02 14:30] VITALS: BP 120/60; PULSE 61; RESP 16; TEMP 36.4; O2SAT 97
[2023-04-02] MEDS: Lidocaine 4 % Patch ADH..PATCH 1 PATCH TRANSDERMA ×2 (15:55→21:45)
[2023-04-02] MEDS: Lithium Carbonate 300 MG CAPSULE PO (18:38)
[2023-04-02 19:50] VITALS: BP 119/64; PULSE 74; RESP 18; TEMP 36.5; O2SAT 98
[2023-04-02] MEDS: diphenhydrAMINE HCL 25 MG CAPSULE 100 MG PO (19:59)
[2023-04-02] MEDS: Prazosin HCL 5 MG CAPSULE 15 MG PO (19:59)
[2023-04-02] MEDS: Prazosin HCL 1 MG CAPSULE PO (19:59)
[2023-04-02] MEDS: hydrOXYzine HCL 50 MG TABLET PO (20:00)
[2023-04-02] MEDS: Zolpidem Tartrate 5 MG TABLET 10 MG PO (20:00)
[2023-04-02] MEDS: traZODone HCL 100 MG TABLET 200 MG PO (20:00)
[2023-04-02] MEDS: Milk of Magnesia 30 ML ORAL.SUSP PO (20:13)
[2023-04-02] MEDS: OLANZapine 10 MG VIAL 5 MG IM (22:27)
[2023-04-03 10:00] VITALS: BP 119/81; PULSE 87; RESP 16; TEMP 36.9; O2SAT 97
[2023-04-03] MEDS: Lidocaine 4 % Patch ADH..PATCH 1 PATCH TRANSDERMA ×2 (10:15→11:50)
[2023-04-03] MEDS: Fluticasone/Vilanterol 200/25 BLST.W.DEV 1 PUFF INHALE (10:15)
[2023-04-03] MEDS: Omeprazole 20 MG CAPSULE.DR PO (10:16)
[2023-04-03] MEDS: Benztropine Mesylate 0.5 MG TABLET PO ×2 (10:16→21:59)
[2023-04-03] MEDS: Loratadine 10 MG TABLET PO (10:16)
[2023-04-03] MEDS: DULoxetine HCl 60 MG CAPSULE.DR PO (10:16)
[2023-04-03] MEDS: cloNIDine HCL 0.1 MG TABLET PO ×2 (10:16→21:59)
[2023-04-03] MEDS: polyethylene glycoL 3350 17 GM POWD.PACK PO (11:51)
--- NOTE | 2023-04-03 13:02 | P.PNPSI_ITS ---
Subjective Subjective Date of Service: 04/03/23 Reason For Visit: SI/SIB Interim History: sleeping late, seen at 1130. c/o back pain. agreeable to have a second lidocaine patch added. also c/o insomnia with nightmares, agreeable to have prazosin increased from 16 mg to 18 mg QHS. c/o constipation, agreeable to have miralax PRN daily added. per staff, reporting no BM in 2 weeks. c/o back pain. MOM-no BM. had haldol and ativan PRNs and then IM zyprexa PRN for sleep. appeared to have poor sleep overnight, restless, nightmares. Mental Status Exam Mental Status Exam Narrative: Pt is alert and oriented; behavior is cooperative and calm; dressed in casual attire with unkempt hair; mood is described as depressed ; eye contact appropriate; Speech is normal rate, volume and prosody and not pressured; no psychomotor agitation/retardation present; thought process is organized and goal directed; Thought content is on tx; otherwise pertinent to relevant topics and without any delusional content, paranoid ideations or grandiosity; no SI/HI/AVH expressed. Patients insight and judgment are poor. Diagnostics Vital Signs (24Hr): Vital Signs - 24 hr 04/02/23 14:30 04/02/23 19:50 04/03/23 10:00 Temperature 97.6 F 97.7 F 98.4 F Pulse Rate 61 74 87 Respiratory Rate 16 18 16 Blood Pressure 120/60 119/64 119/81 Pulse Oximetry 97 98 97 Oxygen Delivery Method Room Air Room Air Room Air BMI result Body Mass Index 43.4 Labs 03/29/23 03:52 03/31/23 08:31 Imaging Radiology Impressions: ITS Impressions Head CT 03/30/23 14:24 IMPRESSION: No acute intracranial process seen. Medications Medications Current Medications Acetaminophen (Acetaminophen 325 Mg Tablet) 650 mg PO Q6H PRN PRN Reason: pain Last Admin: 04/02/23 12:09 Dose: 650 mg Al Hydroxide/Mg Hydroxide (Magnesium Hydrox/Alum Hydrox 30 Ml Oral.Susp) 30 ml PO Q6H PRN PRN Reason: Heartburn/Nausea Albuterol Sulfate (Albuterol Sulfate 90 Mcg 8 Gm Inhaler) 2 puff INHALE BID PRN PRN Reason: Wheezing Benztropine Mesylate (Benztropine Mesylate 0.5 Mg Tablet) 0.5 mg PO BID [facility] Last Admin: 04/03/23 10:16 Dose: 0.5 mg Clonidine HCl (Clonidine Hcl 0.1 Mg Tablet) 0.1 mg PO TID [facility]; Protocol Last Admin: 04/03/23 10:16 Dose: 0.1 mg Diphenhydramine HCl (Diphenhydramine Hcl 25 Mg Capsule) 100 mg PO BEDTIME [facility] Last Admin: 04/02/23 19:59 Dose: 100 mg Duloxetine HCl (Duloxetine Hcl 60 Mg Capsule.Dr) 60 mg PO DAILY [facility] Last Admin: 04/03/23 10:16 Dose: 60 mg Fluticasone/Vilanterol (Fluticasone/Vilanterol 200/25 Blst.W.Dev) 1 puff INHALE RDAILY [facility] Last Admin: 04/03/23 10:15 Dose: 1 puff Haloperidol (Haloperidol 5 Mg Tablet) 5 mg PO TID PRN PRN Reason: Agitation Last Admin: 04/02/23 18:39 Dose: 5 mg Haloperidol Decanoate (Haloperidol Decanoate 50 Mg/Ml Ampul) 100 mg IM Q28D [facility] Hydroxyzine HCl (Hydroxyzine Hcl 50 Mg Tablet) 50 mg PO BID PRN PRN Reason: Anxiety Last Admin: 04/02/23 20:00 Dose: 50 mg Lidocaine (Lidocaine 4 % Patch Adh..Patch) 2 patch TRANSDERMA DAILY [facility]; Protocol [place] Carbonate ([place] Carbonate 300 Mg Capsule) 300 mg PO DAILY@1700 [facility] Last Admin: 04/02/23 18:38 Dose: 300 mg Loratadine (Loratadine 10 Mg Tablet) 10 mg PO DAILY [facility] Last Admin: 04/03/23 10:16 Dose: 10 mg Lorazepam (Lorazepam 1 Mg Tablet) 1 mg PO TID PRN PRN Reason: Anxiety Last Admin: 04/02/23 19:23 Dose: 1 mg Magnesium Hydroxide (Milk Of Magnesia 30 Ml Oral.Susp) 30 ml PO DAILY PRN PRN Reason: Constipation Last Admin: 04/02/23 20:13 Dose: 30 ml Nicotine (Nicotine 21 Mg Patch.Td24) 21 mg TRANSDERMA DAILY [facility] Last Admin: 04/03/23 10:24 Dose: Not Given Nicotine Polacrilex (Nicotine Polacrilex 2 Mg Gum) 2 mg BUCCAL Q2H PRN PRN Reason: Smoking Cessation Nicotine Polacrilex (Nicotine Polacrilex 2 Mg Gum) 2 mg BUCCAL Q2H PRN PRN Reason: Nicotine Cravings Omeprazole (Omeprazole 20 Mg Capsule.Dr) 20 mg PO DAILY [facility] Last Admin: 04/03/23 10:16 Dose: 20 mg Polyethylene Glycol (Polyethylene Glycol 3350 17 Gm Powd.Pack) 17 gm PO DAILY PRN PRN Reason: Constipation Last Admin: 04/03/23 11:51 Dose: 17 gm Prazosin HCl (Prazosin Hcl 5 Mg Capsule) 15 mg PO BEDTIME [facility]; Protocol Last Admin: 04/02/23 19:59 Dose: 15 mg Prazosin HCl (Prazosin Hcl 1 Mg Capsule) 3 mg PO BEDTIME [facility]; Protocol Trazodone HCl (Trazodone Hcl 100 Mg Tablet) 200 mg PO BEDTIME PRN PRN Reason: Insomnia Last Admin: 04/02/23 20:00 Dose: 200 mg Zolpidem Tartrate (Zolpidem Tartrate 5 Mg Tablet) 10 mg PO BEDTIME [facility] Last Admin: 04/02/23 20:00 Dose: 10 mg Allergies Allergies Allergy/AdvReac Type Severity Reaction Status Date / Time carbamazepine [From TEGRETOL] AdvReac Mild Nausea and Verified 03/10/23 10:29 Vomiting topiramate [From Topamax] AdvReac Mild Nausea and Verified 03/10/23 10:29 Vomiting Assessment & Plan Assessment & Plan (1) Schizoaffective disorder, depressive type: Status: Chronic Code(s): F25.1 - Schizoaffective disorder, depressive type (2) Suicidal ideation: Status: Acute Code(s): R45.851 - Suicidal ideations (3) Chronic post-traumatic stress disorder (PTSD): Status: Chronic Code(s): F43.12 - Post-traumatic stress disorder, chronic (4) Borderline personality disorder: Status: Chronic Code(s): F60.3 - Borderline personality disorder Plan Patient is a 38 year old female with hx of Schizoaffective d/o, PTSD and borderline personality d/o who was evaluated by N at her care home d/t urges to self harm and suicidal ideation d/t increased depressive symptoms. Patient has a hx of chronic SI, chronic self-harming behaviors and multiple inpatient admissions. Plan: CV 1:1 sitter (self-harming behaviors) Continue home medications Discuss plan w/ staff at care home Possibly restart ECT 04/01: Patient reports feeling depressed and irritable today. Patient stated, I'm glad I got cleared for ECT. I'm trying to not bang my head but it's hard . Patient reports she continues to have suicidal ideation with no plan. Patient states she will try to stay out of bed and go to more groups today . 04/02: Patient reports she continues to feel depressed today. Patient stated, I'm looking forward to getting ECT. I just want to feel better . Patient laugh ing and joking at times with staff. Patient reports she continues to have suicidal ideation with no plan. Pt states she did not refuse my medications last night, they just never gave them to me . Continue tx plan. Will have ECT on Wednesday. 04/03: add second lidocaine patch to lumbar area for low back pain, miralax PRN constipation. increase prazosin to 18 mg QHS for nightmares and insomnia. no notable events in the past 24H. Reason for continued inpatient stay Substantial Risk for: harm to self, inability to function and rapid dec ompensation Time Spent With Patient Time: Total time managing care of this patient today ____ minutes.
[2023-04-03 15:58] VITALS: BP 84/48; PULSE 58
[2023-04-03] MEDS: Lithium Carbonate 300 MG CAPSULE PO (16:01)
[2023-04-03] MEDS: HaloperidoL 5 MG TABLET PO ×2 (19:14→23:00)
[2023-04-03] MEDS: hydrOXYzine HCL 50 MG TABLET PO ×2 (19:14→23:00)
[2023-04-03 21:41] VITALS: BP 119/82; PULSE 73; RESP 18; TEMP 36.8; O2SAT 98
[2023-04-03] MEDS: Prazosin HCL 1 MG CAPSULE 3 MG PO (21:59)
[2023-04-03] MEDS: Prazosin HCL 5 MG CAPSULE 15 MG PO (21:59)
[2023-04-03] MEDS: diphenhydrAMINE HCL 25 MG CAPSULE 100 MG PO (21:59)
[2023-04-03] MEDS: traZODone HCL 100 MG TABLET 200 MG PO (21:59)
[2023-04-03] MEDS: LORazepam 1 MG TABLET PO (22:06)
[2023-04-03] MEDS: Acetaminophen 325 MG TABLET 650 MG PO (23:32)
[2023-04-04] MEDS: LORazepam 1 MG TABLET PO ×2 (02:16→13:48)
[2023-04-04 10:45] VITALS: BP 105/78; PULSE 86; RESP 16; TEMP 36.3; O2SAT 98
[2023-04-04] MEDS: Fluticasone/Vilanterol 200/25 BLST.W.DEV 1 PUFF INHALE (10:59)
[2023-04-04] MEDS: polyethylene glycoL 3350 17 GM POWD.PACK PO (11:00)
[2023-04-04] MEDS: Nicotine 21 MG PATCH.TD24 TRANSDERMA (11:01)
[2023-04-04] MEDS: Benztropine Mesylate 0.5 MG TABLET PO ×2 (11:02→19:54)
[2023-04-04] MEDS: DULoxetine HCl 60 MG CAPSULE.DR PO (11:02)
[2023-04-04] MEDS: Lidocaine 4 % Patch ADH..PATCH 2 PATCH TRANSDERMA (11:02)
[2023-04-04] MEDS: Omeprazole 20 MG CAPSULE.DR PO (11:02)
[2023-04-04] MEDS: Loratadine 10 MG TABLET PO (11:02)
[2023-04-04] MEDS: cloNIDine HCL 0.1 MG TABLET PO ×3 (11:02→19:54)
[2023-04-04] MEDS: bisacodyL 5 MG TABLET.DR 10 MG PO (11:10)
--- NOTE | 2023-04-04 13:28 | P.PNPSI_ITS ---
Subjective Subjective Date of Service: 04/04/23 Reason For Visit: SI/SIB Interim History: resting in bed, easily roused. discuss the day yesterday, her refraining from self-harm via engaging in prolonged game of shyanne (3 hours). asking for something to help sleep, agrees on zyprexa 10 mg PO PRN. looking forward to ECT tomorrow. per staff, no BM after having gotten miralax and dulcolax. trying to self-harm at change of shift. long game of shyanne. slept much of the day. up and down much of the night, slept [id number] today. ECT tomorrow. Mental Status Exam Mental Status Exam Narrative: Pt is alert and oriented; behavior is cooperative and calm; dressed in casual attire with unkempt hair; eye contact appropriate; Speech is normal rate, volume and prosody and not pressured; no psychomotor agitation/retardation present; thought process is organized and goal directed; Thought content is on tx; otherwise pertinent to relevant topics and without any delusional content, paranoid ideations or grandiosity; no SI/HI/AVH expressed. Patients insight and judgment are poor. Diagnostics Vital Signs (24Hr): Vital Signs - 24 hr 04/03/23 15:58 04/03/23 21:41 04/04/23 10:45 Temperature 98.3 F 97.4 F Pulse Rate 58 73 86 Respiratory Rate 18 16 Blood Pressure 84/48 L 119/82 105/78 Pulse Oximetry 98 98 Oxygen Delivery Method Room Air Room Air BMI result Body Mass Index 43.4 Labs 03/29/23 03:52 03/31/23 08:31 Imaging Radiology Impressions: ITS Impressions Head CT 03/30/23 14:24 IMPRESSION: No acute intracranial process seen. Medications Medications Current Medications Acetaminophen (Acetaminophen 325 Mg Tablet) 650 mg PO Q6H PRN PRN Reason: pain Last Admin: 04/03/23 23:32 Dose: 650 mg Al Hydroxide/Mg Hydroxide (Magnesium Hydrox/Alum Hydrox 30 Ml Oral.Susp) 30 ml PO Q6H PRN PRN Reason: Heartburn/Nausea Albuterol Sulfate (Albuterol Sulfate 90 Mcg 8 Gm Inhaler) 2 puff INHALE BID PRN PRN Reason: Wheezing Benztropine Mesylate (Benztropine Mesylate 0.5 Mg Tablet) 0.5 mg PO BID [facility] Last Admin: 04/04/23 11:02 Dose: 0.5 mg Clonidine HCl (Clonidine Hcl 0.1 Mg Tablet) 0.1 mg PO TID [facility]; Protocol Last Admin: 04/04/23 11:02 Dose: 0.1 mg Diphenhydramine HCl (Diphenhydramine Hcl 25 Mg Capsule) 100 mg PO BEDTIME [facility] Last Admin: 04/03/23 21:59 Dose: 100 mg Duloxetine HCl (Duloxetine Hcl 60 Mg Capsule.Dr) 60 mg PO DAILY [facility] Last Admin: 04/04/23 11:02 Dose: 60 mg Fluticasone/Vilanterol (Fluticasone/Vilanterol 200/25 Blst.W.Dev) 1 puff INHALE RDAILY [facility] Last Admin: 04/04/23 10:59 Dose: 1 puff Haloperidol (Haloperidol 5 Mg Tablet) 5 mg PO TID PRN PRN Reason: Agitation Last Admin: 04/03/23 23:00 Dose: 5 mg Haloperidol Decanoate (Haloperidol Decanoate 50 Mg/Ml Ampul) 100 mg IM Q28D [facility] Hydroxyzine HCl (Hydroxyzine Hcl 50 Mg Tablet) 50 mg PO BID PRN PRN Reason: Anxiety Last Admin: 04/03/23 23:00 Dose: 50 mg Lidocaine (Lidocaine 4 % Patch Adh..Patch) 2 patch TRANSDERMA DAILY [facility]; Protocol Last Admin: 04/04/23 11:02 Dose: 2 patch [place] Carbonate ([place] Carbonate 300 Mg Capsule) 300 mg PO DAILY@1700 [facility] Last Admin: 04/03/23 16:01 Dose: 300 mg Loratadine (Loratadine 10 Mg Tablet) 10 mg PO DAILY [facility] Last Admin: 04/04/23 11:02 Dose: 10 mg Lorazepam (Lorazepam 1 Mg Tablet) 1 mg PO TID PRN PRN Reason: Anxiety Last Admin: 04/04/23 02:16 Dose: 1 mg Magnesium Hydroxide (Milk Of Magnesia 30 Ml Oral.Susp) 30 ml PO DAILY PRN PRN Reason: Constipation Last Admin: 04/02/23 20:13 Dose: 30 ml Nicotine (Nicotine 21 Mg Patch.Td24) 21 mg TRANSDERMA DAILY [facility] Last Admin: 04/04/23 11:01 Dose: 21 mg Nicotine Polacrilex (Nicotine Polacrilex 2 Mg Gum) 2 mg BUCCAL Q2H PRN PRN Reason: Smoking Cessation Nicotine Polacrilex (Nicotine Polacrilex 2 Mg Gum) 2 mg BUCCAL Q2H PRN PRN Reason: Nicotine Cravings Olanzapine (Olanzapine 10 Mg Tablet) 10 mg PO BEDTIME PRN PRN Reason: insomnia Omeprazole (Omeprazole 20 Mg Capsule.Dr) 20 mg PO DAILY [facility] Last Admin: 04/04/23 11:02 Dose: 20 mg Polyethylene Glycol (Polyethylene Glycol 3350 17 Gm Powd.Pack) 17 gm PO DAILY PRN PRN Reason: Constipation Last Admin: 04/04/23 11:00 Dose: 17 gm Prazosin HCl (Prazosin Hcl 5 Mg Capsule) 15 mg PO BEDTIME [facility]; Protocol Last Admin: 04/03/23 21:59 Dose: 15 mg Prazosin HCl (Prazosin Hcl 1 Mg Capsule) 3 mg PO BEDTIME [facility]; Protocol Last Admin: 04/03/23 21:59 Dose: 3 mg Trazodone HCl (Trazodone Hcl 100 Mg Tablet) 200 mg PO BEDTIME PRN PRN Reason: Insomnia Last Admin: 04/03/23 21:59 Dose: 200 mg Allergies Allergies Allergy/AdvReac Type Severity Reaction Status Date / Time carbamazepine [From TEGRETOL] AdvReac Mild Nausea and Verified 03/10/23 10:29 Vomiting topiramate [From Topamax] AdvReac Mild Nausea and Verified 03/10/23 10:29 Vomiting Assessment & Plan Assessment & Plan (1) Schizoaffective disorder, depressive type: Status: Chronic Code(s): F25.1 - Schizoaffective disorder, depressive type (2) Suicidal ideation: Status: Acute Code(s): R45.851 - Suicidal ideations (3) Chronic post-traumatic stress disorder (PTSD): Status: Chronic Code(s): F43.12 - Post-traumatic stress disorder, chronic (4) Borderline personality disorder: Status: Chronic Code(s): F60.3 - Borderline personality disorder Plan Patient is a 38 year old female with hx of Schizoaffective d/o, PTSD and borderline personality d/o who was evaluated by N at her residential d/t urges to self harm and suicidal ideation d/t increased depressive symptoms. Patient has a hx of chronic SI, chronic self-harming behaviors and multiple inpatient admissions. Plan: CV 1:1 sitter (self-harming behaviors) Continue home medications Discuss plan w/ staff at residential Possibly restart ECT 04/01: Patient reports feeling depressed and irritable today. Patient stated, I'm glad I got cleared for ECT. I'm trying to not bang my head but it's hard . Patient reports she continues to have suicidal ideation with no plan. Patient states she will try to stay out of bed and go to more groups today . 04/02: Patient reports she continues to feel depressed today. Patient stated, I'm looking forward to getting ECT. I just want to feel better . Patient l aughing and joking at times with staff. Patient reports she continues to have suicidal ideation with no plan. Pt states she did not refuse my medications last night, they just never gave them to me . Continue tx plan. Will have ECT on Wednesday. 04/03: add second lidocaine patch to lumbar area for low back pain, miralax PRN constipation. increase prazosin to 18 mg QHS for nightmares and insomnia. no notable events in the past 24H. 04/04: disrupted sleep last night, but also sleeping much of the day. BP slightly lowered after prazosin increase, will not make any further increases today. pt asking for meds to help her sleep, agrees to zyprexa 10 mg PO PRN. ECT #1 tomorrow. Reason for continued inpatient stay Substantial Risk for: harm to self, inability to function and rapid decompensation Time Spent With Patient Time: Total time managing care of this patient today ____ minutes.
[2023-04-04] MEDS: HaloperidoL 5 MG TABLET PO ×2 (13:48→18:45)
[2023-04-04] MEDS: Acetaminophen 325 MG TABLET 650 MG PO (13:56)
--- NOTE | 2023-04-04 14:31 | PC.NURSE ---
pt reports vaginal itching and discharge [id number]. reports not saying anything due to embarassment. Also reports cramping which she attributes to IUD. Assigned RN notified.
[2023-04-04] MEDS: Lithium Carbonate 300 MG CAPSULE PO (17:03)
[2023-04-04] MEDS: hydrOXYzine HCL 50 MG TABLET PO (18:45)
[2023-04-04 19:50] VITALS: BP 98/70; PULSE 88; RESP 18; TEMP 36.3; O2SAT 98
[2023-04-04] MEDS: Prazosin HCL 1 MG CAPSULE 3 MG PO (19:54)
[2023-04-04] MEDS: diphenhydrAMINE HCL 25 MG CAPSULE 100 MG PO (19:54)
[2023-04-04] MEDS: Prazosin HCL 5 MG CAPSULE 15 MG PO (19:54)
[2023-04-04] MEDS: OLANZapine 10 MG TABLET PO (19:55)
[2023-04-04] MEDS: traZODone HCL 100 MG TABLET 200 MG PO (19:55)
[2023-04-05] VITALS (11 sets, daily range): BP systolic 113–166; BP diastolic 48–96; PULSE 85–100; RESP 15–18; TEMP 36.6–37.2; O2SAT 96–98
--- NOTE | 2023-04-05 07:59 | MHC.SHP ---
Pre-Procedural Eval Section A Date of Service: 04/05/23 The patient is an INPATIENT: Yes Changes since office visit: No Cold of Flu in the past 2 weeks, No New Medical Problems, No Changes in Medication and No Patient answered all questions The History & Physical has been completed within 30 days and I have reviewed it.: Yes Section B Chief Complaint: SI/SIB Details of Present Illness: Long history of Schizoaffective disorder bipolar type with several admissions for self-harming. Responds very well to ECT. Now currently inpatient. Relevant Family History (Specify if Yes): Yes Relevant Social History: None Present Medications: see Short Stay Collaborative assessment Medical History: No relevant PMH History of Previous Operations: No relevant previous surgery Allergies: Allergies Allergy/AdvReac Type Severity Reaction Status Date / Time carbamazepine [From TEGRETOL] AdvReac Mild Nausea and Verified 03/10/23 10:29 Vomiting topiramate [From Topamax] AdvReac Mild Nausea and Verified 03/10/23 10:29 Vomiting Review of Systems Sugical H&P ROS: Negative: Constitution, Cardiovascular, Respiratory, Neurological, Psychiatric, Hem-Onc, Allergic/Immunologic, Gastrointestinal, Genitourinary, Musculoskeletal, Integumentary, Endocrine and Eyes/Ears/Nose/Throat Exam Surgical H&P Exam: Normal: HEENT, Normal: Heart, Normal: Lungs, Normal: Extremities, Normal: Abdomen, Normal: Skin and Normal: Neurological Plan Diagnosis/Plan: Unchanged I have reviewed the history and physical and performed a pertinent physical examination on my patient. No changes have occurred unless specified. Time Spent With Patient Time: Total time managing care of this patient today __30__ minutes.
--- NOTE | 2023-04-05 08:09 | HO.ANESPROP2 ---
[facility] Active Problems Active Problems: All Active Problems (Updated 03/28/23 @ 21:41 by Rosi Barcenas MD) Suicidal ideation (Acute) Intentional self-harm (Acute) COPD (chronic obstructive pulmonary disease) (Acute) Asthma (Acute) Adjustment disorder (Acute) Anxiety (Acute) Injury of ligament of right knee (Acute) Sprain of anterior cruciate ligament of right knee (Acute) Hernia (Chronic) Schizoaffective disorder, depressive type (Chronic) Chronic post-traumatic stress disorder (PTSD) (Chronic) Increased BMI (Acute) GERD (gastroesophageal reflux disease) (Acute) Borderline personality disorder (Chronic) Past Medical History Medical History Acute post-traumatic stress disorder Adjustment disorder Anxiety Asthma Borderline personality disorder Chronic post-traumatic stress disorder (PTSD) COPD (chronic obstructive pulmonary disease) COVID-19 COVID-19 Depression GERD (gastroesophageal reflux disease) History of electroconvulsive therapy Increased BMI Injury, self-inflicted Intentional self-harm PTSD (post-traumatic stress disorder) Recurrent major depression-severe Schizoaffective disorder Self-harming behavior Sprain of left foot Suicidal ideation Suicidal ideation Family History Family History Mother Brain cancer Other No family history of cardiac disease Family history of problems with anesthesia: No Surgical History History of Problems with Anesthesia: No Social History Social History Household Members: Other Household Members Other:: jail Housing: Other Housing Other:: jail Do you presently have visiting nurse or other home services: No Alcohol intake: never Patient Tobacco Use Status: Current someday Tobacco user Tobacco use type: Cigarette Cigarette Packs Per Day: 0.5 Cigarettes Per Day: 10.0 Years Smoked: 20 Smoked in Last 30 Days: Yes e-Cigarette/Vaping Use: Never Used Patient Interested in Nicotine Replacement: Yes Patient Given Instructions on How to Stop Smoking: No Second Hand Smoke Exposure: No Use of substances other than those prescribed or required for medical reasons: Yes Substance Use Type: Marijuana Substance Use Type Other:: fentanyl Substance Use Frequency: Daily Last Used Substance: Just Prior to Admission Currently Displaying Signs/Symptoms of Drug Intoxication Withdrawal: No Any prior treatment program specific to substance use: No Have you been hit, kicked, punched, or otherwise hurt by someone within the past year? If so, by whom?: No Do you feel safe in your current relationship?: No Current Relationship Is there a partner from a previous relationship who is making you feel unsafe now?: No Are you made to feel afraid or neglected: No Advance Directives: No Advance Directives Information Provided: No Guardian: No Do you have thoughts of harming others: None Do you have a plan to hurt others: No Plan Recently lost weight without trying: No Patient : No : No Poor oral hygiene: No service: No Sexual orientation: Straight/Heterosexual Meds Allergies Allergy/AdvReac Type Severity Reaction Status Date / Time carbamazepine [From TEGRETOL] AdvReac Mild Nausea and Verified 03/10/23 10:29 Vomiting topiramate [From Topamax] AdvReac Mild Nausea and Verified 03/10/23 10:29 Vomiting Active Medications: Current Medications Acetaminophen (Acetaminophen 325 Mg Tablet) 650 mg PO Q6H PRN PRN Reason: pain Last Admin: 04/04/23 13:56 Dose: 650 mg Al Hydroxide/Mg Hydroxide (Magnesium Hydrox/Alum Hydrox 30 Ml Oral.Susp) 30 ml PO Q6H PRN PRN Reason: Heartburn/Nausea Albuterol Sulfate (Albuterol Sulfate 90 Mcg 8 Gm Inhaler) 2 puff INHALE BID PRN PRN Reason: Wheezing Benztropine Mesylate (Benztropine Mesylate 0.5 Mg Tablet) 0.5 mg PO BID [facility] Last Admin: 04/04/23 19:54 Dose: 0.5 mg Clonidine HCl (Clonidine Hcl 0.1 Mg Tablet) 0.1 mg PO TID [facility]; Protocol Last Admin: 04/04/23 19:54 Dose: 0.1 mg Diphenhydramine HCl (Diphenhydramine Hcl 25 Mg Capsule) 100 mg PO BEDTIME [facility] Last Admin: 04/04/23 19:54 Dose: 100 mg Duloxetine HCl (Duloxetine Hcl 60 Mg Capsule.Dr) 60 mg PO DAILY [facility] Last Admin: 04/04/23 11:02 Dose: 60 mg Fluticasone/Vilanterol (Fluticasone/Vilanterol 200/25 Blst.W.Dev) 1 puff INHALE RDAILY [facility] Last Admin: 04/04/23 10:59 Dose: 1 puff Haloperidol (Haloperidol 5 Mg Tablet) 5 mg PO TID PRN PRN Reason: Agitation Last Admin: 04/04/23 18:45 Dose: 5 mg Haloperidol Decanoate (Haloperidol Decanoate 50 Mg/Ml Ampul) 100 mg IM Q28D [facility] Hydroxyzine HCl (Hydroxyzine Hcl 50 Mg Tablet) 50 mg PO BID PRN PRN Reason: Anxiety Last Admin: 04/04/23 18:45 Dose: 50 mg Lidocaine (Lidocaine 4 % Patch Adh..Patch) 2 patch TRANSDERMA DAILY [facility]; Protocol Last Admin: 04/04/23 11:02 Dose: 2 patch [place] Carbonate ([place] Carbonate 300 Mg Capsule) 300 mg PO DAILY@1700 [facility] Last Admin: 04/04/23 17:03 Dose: 300 mg Loratadine (Loratadine 10 Mg Tablet) 10 mg PO DAILY [facility] Last Admin: 04/04/23 11:02 Dose: 10 mg Lorazepam (Lorazepam 1 Mg Tablet) 1 mg PO TID PRN PRN Reason: Anxiety Last Admin: 04/04/23 13:48 Dose: 1 mg Magnesium Hydroxide (Milk Of Magnesia 30 Ml Oral.Susp) 30 ml PO DAILY PRN PRN Reason: Constipation Last Admin: 04/02/23 20:13 Dose: 30 ml Nicotine (Nicotine 21 Mg Patch.Td24) 21 mg TRANSDERMA DAILY [facility] Last Admin: 04/04/23 11:01 Dose: 21 mg Nicotine Polacrilex (Nicotine Polacrilex 2 Mg Gum) 2 mg BUCCAL Q2H PRN PRN Reason: Smoking Cessation Nicotine Polacrilex (Nicotine Polacrilex 2 Mg Gum) 2 mg BUCCAL Q2H PRN PRN Reason: Nicotine Cravings Olanzapine (Olanzapine 10 Mg Tablet) 10 mg PO BEDTIME PRN PRN Reason: insomnia Last Admin: 04/04/23 19:55 Dose: 10 mg Omeprazole (Omeprazole 20 Mg Capsule.Dr) 20 mg PO DAILY [facility] Last Admin: 04/04/23 11:02 Dose: 20 mg Polyethylene Glycol (Polyethylene Glycol 3350 17 Gm Powd.Pack) 17 gm PO DAILY PRN PRN Reason: Constipation Last Admin: 04/04/23 11:00 Dose: 17 gm Prazosin HCl (Prazosin Hcl 5 Mg Capsule) 15 mg PO BEDTIME [facility]; Protocol Last Admin: 04/04/23 19:54 Dose: 15 mg Prazosin HCl (Prazosin Hcl 1 Mg Capsule) 3 mg PO BEDTIME [facility]; Protocol Last Admin: 04/04/23 19:54 Dose: 3 mg Trazodone HCl (Trazodone Hcl 100 Mg Tablet) 200 mg PO BEDTIME PRN PRN Reason: Insomnia Last Admin: 04/04/23 19:55 Dose: 200 mg Home Medications Medication Instructions Recorded Confirmed Last Taken Type acetaminophen 500 mg tablet 1 tab PO Q6H PRN pain 08/14/22 03/29/23 03/13/23 History albuterol sulfate 90 mcg/actuation 2 puff inhalation BID PRN Wheezing 08/14/22 03/29/23 03/13/23 History aerosol inhaler (ProAir HFA) diphenhydramine HCl 50 mg capsule 2 cap PO BEDTIME 08/14/22 03/29/23 03/24/23 History (Banophen) haloperidol 5 mg tablet 1 tab PO TID PRN Agitation 08/14/22 03/29/23 03/13/23 History hydroxyzine pamoate 50 mg capsule 1 cap PO BID PRN Anxiety 08/14/22 03/29/23 03/13/23 History nicotine (polacrilex) 2 mg gum 2 mg buccal Q2H PRN Smoking 08/14/22 03/29/23 03/13/23 History Cessation omeprazole 20 mg tablet,delayed 20 mg PO DAILY 08/14/22 03/29/23 03/24/23 History release zolpidem 10 mg tablet 1 tab PO BEDTIME 08/14/22 03/29/23 03/24/23 History cetirizine 10 mg tablet 1 tab PO DAILY 10/07/22 03/29/23 03/24/23 History fluticasone propionate 230 2 puff inhalation BID 10/07/22 03/29/23 03/24/23 History mcg-salmeterol 21 mcg/actuation HFA inhaler (Advair HFA) benztropine 0.5 mg tablet 1 tab PO BID 10/26/22 03/29/23 03/24/23 History clonidine HCl 0.1 mg tablet 1 tab PO TID 10/26/22 03/29/23 03/24/23 History duloxetine 60 mg capsule,delayed 1 cap PO DAILY 10/26/22 03/29/23 03/24/23 History release haloperidol decanoate 100 mg/mL 100 mg IM Q4W 10/26/22 03/29/23 03/19/23 History intramuscular solution lithium carbonate 300 mg tablet 300 mg PO DAILY@1700 10/26/22 03/29/23 03/24/23 History prazosin 1 mg capsule 1 mg PO BEDTIME 12/25/22 03/29/23 03/24/23 History trazodone 100 mg tablet 200 mg PO BEDTIME PRN Insomnia 12/25/22 03/29/23 03/24/23 History lorazepam 1 mg tablet 1 mg PO TID PRN Anxiety 03/25/23 03/29/23 Unknown History prazosin 5 mg capsule 15 mg PO BEDTIME 03/25/23 03/29/23 03/24/23 History Exam Exam Date and Time: April 05, 2023 0809 Height,Weight and Vital Signs: Height 4 ft 11 in Weight 97.522 kg Last Vital Signs Temp 97.8 F 04/05/23 06:55 Pulse 85 04/05/23 06:55 Resp 17 04/05/23 06:55 BP 135/96 H 04/05/23 06:55 Pulse Ox 96 04/05/23 06:55 O2 Del Method Room Air 04/05/23 06:55 Pertinent Lab Results Pertinent Lab Results: Laboratory Tests 03/28/23 03/28/23 03/28/23 22:06 22:06 22:07 WBC RBC Hgb Hct MCV MCH MCHC RDW Plt Count MPV Absolute Nucleated RBC Nucleated RBC % (auto) Sodium 137 Potassium 3.7 Chloride 109 H Carbon Dioxide 21 L Anion Gap 11 L BUN 5 L Creatinine 0.80 Estim Creat Clear Calc 97.2 Estimated GFR > 60 Random Glucose 123 H Fasting Glucose Estimat Average Glucose Hemoglobin A1c % Calcium 9.0 Total Bilirubin 0.2 AST 11 ALT 9 Alkaline Phosphatase 67 Total Protein 6.8 Albumin 3.9 Triglycerides Cholesterol LDL Cholesterol, Calc HDL Cholesterol Vitamin B12 Folate TSH Free T4 Urine Color Urine Appearance Urine pH Ur Specific [place] Urine Protein Urine Glucose (UA) Urine Ketones Urine Blood Urine Nitrite Ur Leukocyte Esterase Urine Opiates Screen Not Detected Urine Fentanyl Screen POSITIVE H Ur Barbiturates Screen Not Detected Ur Phencyclidine Scrn Not Detected Ur Amphetamines Screen Not Detected U Benzodiazepines Scrn Not Detected Urine Cocaine Screen Not Detected U Marijuana (THC) Screen POSITIVE H Ethyl Alcohol < 10 COVID-19 (RAFAL) Negative COVID-19 Clin Com See Note 03/29/23 03/29/23 03/31/23 03:52 08:44 08:31 WBC 7.0 RBC 3.87 L Hgb 11.4 L Hct 34.5 L MCV 89.1 MCH 29.5 MCHC 33.0 RDW 12.7 Plt Count 233 MPV 10.8 Absolute Nucleated RBC 0.000 Nucleated RBC % (auto) 0.0 Sodium 140 Potassium 4.2 Chloride 108 Carbon Dioxide 24 Anion Gap 12 BUN 9 Creatinine 0.97 Estim Creat Clear Calc 81.3 Estimated GFR > 60 Random Glucose Fasting Glucose 99 Estimat Average Glucose Hemoglobin A1c % Calcium 9.6 D Total Bilirubin 0.4 AST 9 ALT 10 Alkaline Phosphatase 63 Total Protein 7.3 Albumin 4.1 Triglycerides 94 Cholesterol 166 LDL Cholesterol, Calc 102 HDL Cholesterol 46 Vitamin B12 Folate TSH 2.62 Free T4 1.02 Urine Color Yellow Urine Appearance Clear Urine pH 6.0 Ur Specific [place] 1.020 Urine Protein Negative Urine Glucose (UA) Negative Urine Ketones Negative Urine Blood Negative Urine Nitrite Negative Ur Leukocyte Esterase Negative Urine Opiates Screen Urine Fentanyl Screen Ur Barbiturates Screen Ur Phencyclidine Scrn Ur Amphetamines Screen U Benzodiazepines Scrn Urine Cocaine Screen U Marijuana (THC) Screen Ethyl Alcohol COVID-19 ([facility]AL) COVID-19 [employer] Com 03/31/23 03/31/23 08:31 08:31 WBC RBC Hgb Hct MCV MCH MCHC RDW Plt Count MPV Absolute Nucleated RBC Nucleated RBC % (auto) Sodium Potassium Chloride Carbon Dioxide Anion Gap BUN Creatinine Estim Creat Clear Calc Estimated GFR Random Glucose Fasting Glucose Estimat Average Glucose 94 Hemoglobin A1c % 4.9 Calcium Total Bilirubin AST ALT Alkaline Phosphatase Total Protein Albumin Triglycerides Cholesterol LDL Cholesterol, Calc HDL Cholesterol Vitamin B12 284 Folate 6.2 TSH Free T4 Urine Color Urine Appearance Urine pH Ur Specific [place] Urine Protein Urine Glucose (UA) Urine Ketones Urine Blood Urine Nitrite Ur Leukocyte Esterase Urine Opiates Screen Urine Fentanyl Screen Ur Barbiturates Screen Ur Phencyclidine Scrn Ur Amphetamines Screen U Benzodiazepines Scrn Urine Cocaine Screen U Marijuana (THC) Screen Ethyl Alcohol COVID-19 (RAFAL) COVID-19 Clin Com Airway Mallampati Class: II (missing a couple) TM Dist: >3cm Neck ROM: Full Heart: rrr Lungs: cta Assessment and Plan Assessment Anesthesia Assessment: Anesthesia Plan Discussed and Chart Reviewed Final Anesthetic Review Family History of Problems with Anesthesia: No History of Problems with Anesthesia: No NPO: Yes ASA Class: III Final Preanesthetic Review: No Changes in Pt Med Stat, Meds/Allgs Chart Reviewed and Consent Obtained/Reviewed Patient Risk: Intermediate Procedure Risk: Intermediate Anesthetic Plan Anesthetic Plan: GA Disposition: Standard PACU
--- NOTE | 2023-04-05 08:22 | HO.ECTPROC ---
ECT Procedure Note Diagnosis/Treatment Date of Service: 04/05/23 Diagnosis: Schizoaffective Disorder Previous ECT Date: 03/03/23 Current Treatment Number: 1 Treatment: Series Interval Clinical Notes: The aaront is currently inpatient, relapsed on self harming, depression and psychosis, Currently she feels better, safer since she is inpatient. Time: Total time managing care of this patient today _30___ minutes. ECT Settings Device: THYMATRON DGx Electrode Placement: Bitemporal Program/Pulse Width: 0.50 Energy Percent: 100 Medications Administration General Anesthetic: Etomidate (14) Muscle Relaxant: Succinylcholine (100) Ancillary Medications Analgesics: Torodol - Pre ECT Anti-emetics: Zofran - Pre ECT Airway Management Airway Management: Bag Mask Ventilation Treatment Recommendations No Changes Recommended: No change Pt Tolerated Procedure w/o Issue: Yes
--- NOTE | 2023-04-05 09:33 | P.PNPSI_ITS ---
Subjective Subjective Date of Service: 04/05/23 Reason For Visit: SI/SIB Subjective Notes: Conditional Voluntary Interim History: Reviewed in team and Dr. Jesus. Patient received ECT this morning. Pt stated, I'm feeling better after waking up from the ECT. I feel relieved. I'm not feeling suicidal or having voices. I want to go back to my residential and get ECT outpatient because I don't like being in the hospital . Patient has been active and social on the unit. Denies SI/HI/VH/AH. Plan will be to discharge patient tomorrow to residential and will have ECT this week outpatient. Patient is aware and happy with plan. youth support worker to notify residential. Medication Compliance: Yes Side effects from medications: No Attending Groups: Yes Review of Systems Constitutional: Reports as per HPI Eyes: Reports as per HPI Reports as per HPI Cardiovascular: Reports as per HPI Respiratory: Reports as per HPI Gastrointestinal: Reports as per HPI Genitourinary: Reports as per HPI Musculoskeletal: Reports as per HPI Skin/Breast: Reports as per HPI Reports as per HPI Psychiatric: Reports as per HPI Endocrine: Reports as per HPI Hematologic/Lymphatic: Reports as per HPI Allergic/Immunologic: Reports as per HPI Mental Status Exam Mental Status Exam Narrative: Pt is alert and oriented; behavior is cooperative, friendly and calm; patient is not in distress; dressed in casual attire; mood is described as good ; eye contact appropriate; Speech is normal rate, volume and prosody and not pressured; no psychomotor agitation/retardation present; thought process is organized and goal directed; Thought content is on tx; otherwise pertinent to relevant topics and without any delusional content, paranoid ideations or grandiosity; denies SI/HI. There is no evidence of perceptual disturbance. Patients insight and judgment are fair. Diagnostics Vital Signs (24Hr): Vital Signs - 24 hr 04/04/23 10:45 04/04/23 19:50 04/05/23 05:46 Temperature 97.4 F 97.4 F 97.8 F Pulse Rate 86 88 100 Respiratory Rate 16 18 18 Blood Pressure 105/78 98/70 135/80 Pulse Oximetry 98 98 98 Oxygen Delivery Method Room Air Room Air Oxygen Flow Rate 04/05/23 05:49 04/05/23 06:55 04/05/23 08:30 Temperature 97.8 F 97.8 F 98.9 F Pulse Rate 100 85 95 Respiratory Rate 18 17 16 Blood Pressure 135/80 135/96 H 166/90 H Pulse Oximetry 98 96 97 Oxygen Delivery Method Room Air Room Air Nasal Cannula with ETCO2 Oxygen Flow Rate 3 04/05/23 08:35 04/05/23 08:40 04/05/23 08:45 Temperature Pulse Rate 95 90 85 Respiratory Rate 18 15 18 Blood Pressure 146/48 H 125/72 125/82 Pulse Oximetry 97 97 97 Oxygen Delivery Method Nasal Cannula with ETCO2 Nasal Cannula with ETCO2 Nasal Cannula with ETCO2 Oxygen Flow Rate 2 2 2 04/05/23 09:09 Temperature 98.5 F Pulse Rate 90 Respiratory Rate 17 Blood Pressure 126/81 Pulse Oximetry 97 Oxygen Delivery Method Room Air Oxygen Flow Rate BMI result Body Mass Index 43.4 Labs 03/29/23 03:52 03/31/23 08:31 Imaging Radiology Impressions: ITS Impressions Head CT 03/30/23 14:24 IMPRESSION: No acute intracranial process seen. Medications Medications Current Medications Acetaminophen (Acetaminophen 325 Mg Tablet) 650 mg PO Q6H PRN PRN Reason: pain Last Admin: 04/04/23 13:56 Dose: 650 mg Al Hydroxide/Mg Hydroxide (Magnesium Hydrox/Alum Hydrox 30 Ml Oral.Susp) 30 ml PO Q6H PRN PRN Reason: Heartburn/Nausea Albuterol Sulfate (Albuterol Sulfate 90 Mcg 8 Gm Inhaler) 2 puff INHALE BID PRN PRN Reason: Wheezing Benztropine Mesylate (Benztropine Mesylate 0.5 Mg Tablet) 0.5 mg PO BID [facility] Last Admin: 04/04/23 19:54 Dose: 0.5 mg Clonidine HCl (Clonidine Hcl 0.1 Mg Tablet) 0.1 mg PO TID [facility]; Protocol Last Admin: 04/04/23 19:54 Dose: 0.1 mg Diphenhydramine HCl (Diphenhydramine Hcl 25 Mg Capsule) 100 mg PO BEDTIME [facility] Last Admin: 04/04/23 19:54 Dose: 100 mg Duloxetine HCl (Duloxetine Hcl 60 Mg Capsule.Dr) 60 mg PO DAILY [facility] Last Admin: 04/04/23 11:02 Dose: 60 mg Fluticasone/Vilanterol (Fluticasone/Vilanterol 200/25 Blst.W.Dev) 1 puff INHALE RDAILY [facility] Last Admin: 04/04/23 10:59 Dose: 1 puff Haloperidol (Haloperidol 5 Mg Tablet) 5 mg PO TID PRN PRN Reason: Agitation Last Admin: 04/04/23 18:45 Dose: 5 mg Haloperidol Decanoate (Haloperidol Decanoate 50 Mg/Ml Ampul) 100 mg IM Q28D [facility] Hydroxyzine HCl (Hydroxyzine Hcl 50 Mg Tablet) 50 mg PO BID PRN PRN Reason: Anxiety Last Admin: 04/04/23 18:45 Dose: 50 mg Lactated Ringer's (Lr) 1,000 mls @ 50 mls/hr IVCONT .Q20H [facility] Sodium Chloride (Ns) 1,000 mls @ 50 mls/hr IVCONT .Q20H [facility] Lidocaine (Lidocaine 4 % Patch Adh..Patch) 2 patch TRANSDERMA DAILY [facility]; Protocol Last Admin: 04/04/23 11:02 Dose: 2 patch [place] Carbonate ([place] Carbonate 300 Mg Capsule) 300 mg PO DAILY@1700 [facility] Last Admin: 04/04/23 17:03 Dose: 300 mg Loratadine (Loratadine 10 Mg Tablet) 10 mg PO DAILY [facility] Last Admin: 04/04/23 11:02 Dose: 10 mg Lorazepam (Lorazepam 1 Mg Tablet) 1 mg PO TID PRN PRN Reason: Anxiety Last Admin: 04/04/23 13:48 Dose: 1 mg Magnesium Hydroxide (Milk Of Magnesia 30 Ml Oral.Susp) 30 ml PO DAILY PRN PRN Reason: Constipation Last Admin: 04/02/23 20:13 Dose: 30 ml Nicotine (Nicotine 21 Mg Patch.Td24) 21 mg TRANSDERMA DAILY [facility] Last Admin: 04/04/23 11:01 Dose: 21 mg Nicotine Polacrilex (Nicotine Polacrilex 2 Mg Gum) 2 mg BUCCAL Q2H PRN PRN Reason: Smoking Cessation Nicotine Polacrilex (Nicotine Polacrilex 2 Mg Gum) 2 mg BUCCAL Q2H PRN PRN Reason: Nicotine Cravings Olanzapine (Olanzapine 10 Mg Tablet) 10 mg PO BEDTIME PRN PRN Reason: insomnia Last Admin: 04/04/23 19:55 Dose: 10 mg Omeprazole (Omeprazole 20 Mg Capsule.Dr) 20 mg PO DAILY [facility] Last Admin: 04/04/23 11:02 Dose: 20 mg Polyethylene Glycol (Polyethylene Glycol 3350 17 Gm Powd.Pack) 17 gm PO DAILY PRN PRN Reason: Constipation Last Admin: 04/04/23 11:00 Dose: 17 gm Prazosin HCl (Prazosin Hcl 5 Mg Capsule) 15 mg PO BEDTIME [facility]; Protocol Last Admin: 04/04/23 19:54 Dose: 15 mg Prazosin HCl (Prazosin Hcl 1 Mg Capsule) 3 mg PO BEDTIME [facility]; Protocol Last Admin: 04/04/23 19:54 Dose: 3 mg Trazodone HCl (Trazodone Hcl 100 Mg Tablet) 200 mg PO BEDTIME PRN PRN Reason: Insomnia Last Admin: 04/04/23 19:55 Dose: 200 mg Allergies Allergies Allergy/AdvReac Type Severity Reaction Status Date / Time carbamazepine [From TEGRETOL] AdvReac Mild Nausea and Verified 03/10/23 10:29 Vomiting topiramate [From Topamax] AdvReac Mild Nausea and Verified 03/10/23 10:29 Vomiting Assessment & Plan Assessment & Plan (1) Schizoaffective disorder, depressive type: Status: Chronic Code(s): F25.1 - Schizoaffective disorder, depressive type (2) Suicidal ideation: Status: Acute Code(s): R45.851 - Suicidal ideations (3) Chronic post-traumatic stress disorder (PTSD): Status: Chronic Code(s): F43.12 - Post-traumatic stress disorder, chronic (4) Borderline personality disorder: Status: Chronic Code(s): F60.3 - Borderline personality disorder Plan Patient is a 38 year old female with hx of Schizoaffective d/o, PTSD and borderline personality d/o who was evaluated by N at her residential d/t urges to self harm and suicidal ideation d/t increased depressive symptoms. Patient has a hx of chronic SI, chronic self-harming behaviors and multiple inpatient admissions. Plan: CV 1:1 sitter (self-harming behaviors) Continue home medications Discuss plan w/ staff at residential Possibly restart ECT 04/01: Patient reports feeling depressed and irritable today. Patient stated, I'm glad I got cleared for ECT. I'm trying to not bang my head but it's hard . Patient reports she continues to have suicidal ideation with no plan. Patient states she will try to stay out of bed and go to more groups today . 04/02: Patient reports she continues to feel depressed today. Patient stated, I'm looking forward to getting ECT. I just want to feel better . Patient la ughing and joking at times with staff. Patient reports she continues to have suicidal ideation with no plan. Pt states she did not refuse my medications last night, they just never gave them to me . Continue tx plan. Will have ECT on Wednesday. 04/03: add second lidocaine patch to lumbar area for low back pain, miralax PRN constipation. increase prazosin to 18 mg QHS for nightmares and insomnia. no notable events in the past 24H. 04/04: disrupted sleep last night, but also sleeping much of the day. BP slightly lowered after prazosin increase, will not make any further increases today. pt asking for meds to help her sleep, agrees to zyprexa 10 mg PO PRN. ECT #1 tomorrow. 04/05: Patient received ECT this morning. Pt stated, I'm feeling better after waking up from the ECT. I feel relieved. I'm not feeling suicidal or having voices. I want to go back to my residential and get ECT outpatient because I don't like being in the hospital . Patient has been active and social on the unit. Denies SI/HI/VH/AH. Plan will be to discharge patient tomorrow to residential and will have ECT this week outpatient. Patient is aware and happy with plan. youth support worker to notify residential. Patient educated on: diagnosis, medication risk/benefits, ECT and therapeutic strategies Informed Consent: understands Reason for continued inpatient stay Substantial Risk for: stable for discharge Time Spent With Patient Time: Total time managing care of this patient today _30___ minutes.
[2023-04-05] MEDS: Benztropine Mesylate 0.5 MG TABLET PO ×2 (09:45→20:05)
[2023-04-05] MEDS: cloNIDine HCL 0.1 MG TABLET PO ×2 (09:46→20:04)
[2023-04-05] MEDS: DULoxetine HCl 60 MG CAPSULE.DR PO (09:47)
[2023-04-05] MEDS: Loratadine 10 MG TABLET PO (09:49)
[2023-04-05] MEDS: Omeprazole 20 MG CAPSULE.DR PO (09:51)
--- NOTE | 2023-04-05 13:05 | PC.NURSE ---
Pt refused labs, Leelee aware
[2023-04-05] MEDS: Lithium Carbonate 300 MG CAPSULE PO (18:10)
[2023-04-05] MEDS: Prazosin HCL 5 MG CAPSULE 15 MG PO (20:04)
[2023-04-05] MEDS: Prazosin HCL 1 MG CAPSULE 3 MG PO (20:04)
[2023-04-05] MEDS: diphenhydrAMINE HCL 25 MG CAPSULE 100 MG PO (20:05)
[2023-04-06] MEDS: OLANZapine 10 MG TABLET PO (02:29)
[2023-04-06 08:20] VITALS: BP 152/89; PULSE 69; RESP 17; TEMP 36.3; O2SAT 99
[2023-04-06] MEDS: cloNIDine HCL 0.1 MG TABLET PO (08:32)
[2023-04-06] MEDS: Benztropine Mesylate 0.5 MG TABLET PO (08:33)
[2023-04-06] MEDS: DULoxetine HCl 60 MG CAPSULE.DR PO (08:33)
[2023-04-06] MEDS: Omeprazole 20 MG CAPSULE.DR PO (08:33)
[2023-04-06] MEDS: Loratadine 10 MG TABLET PO (08:33)
[2023-04-06] MEDS: Fluticasone/Vilanterol 200/25 BLST.W.DEV 1 PUFF INHALE (08:36)
--- NOTE | 2023-04-06 09:28 | PM.PSYDC ---
DS: Providers Provider Date of Service: 04/06/23 Date of admission: 03/30/23 15:19 Date of discharge: 04/06/23 Primary care physician: Unknown Physician Admitting clinician: Leelee Masters Attending physician on admission: Abdoul Silva Consults: 03/31/23 15:36 Consult to Hospitalist Routine Comment: Consulting Provider: Hospitalist Reason For Exam: Clearance for ECT. Attending physician on discharge: Maurizio Hernández Discharging clinician: Leelee Masters DS: Diagnosis Discharge Diagnosis (1) Schizoaffective disorder, depressive type: Status: Chronic (2) Suicidal ideation: Status: Acute (3) Chronic post-traumatic stress disorder (PTSD): Status: Chronic (4) Borderline personality disorder: Status: Chronic DS: Medications Discharge Medications Home Medications: Home Medications Medication Instructions Recorded Confirmed acetaminophen 500 mg tablet 1 tab PO Q6H PRN pain 08/14/22 03/29/23 albuterol sulfate 90 mcg/actuation 2 puff inhalation BID PRN Wheezing 08/14/22 03/29/23 aerosol inhaler (ProAir HFA) diphenhydramine HCl 50 mg capsule 2 cap PO BEDTIME 08/14/22 03/29/23 (Banophen) haloperidol 5 mg tablet 1 tab PO TID PRN Agitation 08/14/22 03/29/23 hydroxyzine pamoate 50 mg capsule 1 cap PO BID PRN Anxiety 08/14/22 03/29/23 nicotine (polacrilex) 2 mg gum 2 mg buccal Q2H PRN Smoking 08/14/22 03/29/23 Cessation omeprazole 20 mg tablet,delayed 20 mg PO DAILY 08/14/22 03/29/23 release zolpidem 10 mg tablet 1 tab PO BEDTIME 08/14/22 03/29/23 cetirizine 10 mg tablet 1 tab PO DAILY 10/07/22 03/29/23 fluticasone propionate 230 2 puff inhalation BID 10/07/22 03/29/23 mcg-salmeterol 21 mcg/actuation HFA inhaler (Advair HFA) benztropine 0.5 mg tablet 1 tab PO BID 10/26/22 03/29/23 clonidine HCl 0.1 mg tablet 1 tab PO TID 10/26/22 03/29/23 duloxetine 60 mg capsule,delayed 1 cap PO DAILY 10/26/22 03/29/23 release haloperidol decanoate 100 mg/mL 100 mg IM Q4W 10/26/22 03/29/23 intramuscular solution lithium carbonate 300 mg tablet 300 mg PO DAILY@1700 10/26/22 03/29/23 trazodone 100 mg tablet 200 mg PO BEDTIME PRN Insomnia 12/25/22 03/29/23 lorazepam 1 mg tablet 1 mg PO TID PRN Anxiety 03/25/23 03/29/23 prazosin 5 mg capsule 15 mg PO BEDTIME 03/25/23 03/29/23 Previous Rx's Medication Instructions Recorded prazosin 1 mg capsule 3 mg PO BEDTIME 30 days #90 caps 04/05/23 Mental Status Exam Mental Status Exam Narrative: Pt is alert and oriented; behavior is cooperative, friendly and calm; dressed in casual attire; mood is described as good ; eye contact appropriate; Speech is normal rate, volume and prosody and not pressured; no psychomotor agitation/retardation present; thought process is organized and goal directed; Thought content is on tx; otherwise pertinent to relevant topics and without any delusional content, paranoid ideations or grandiosity; denies SI/HI. There is no evidence of perceptual disturbance. Patients insight and judgment are fair. Data Data Completed and Pending Completed studies during hospitalization [Text1]: 03/31/23 03/31/23 03/31/23 08:31 08:31 08:31 Sodium 140 Potassium 4.2 Chloride 108 Carbon Dioxide 24 Anion Gap 12 BUN 9 Creatinine 0.97 Estim Creat Clear Calc 81.3 Estimated GFR > 60 Fasting Glucose 99 Estimat Average Glucose 94 Hemoglobin A1c % 4.9 Calcium 9.6 D Total Bilirubin 0.4 AST 9 ALT 10 Alkaline Phosphatase 63 Total Protein 7.3 Albumin 4.1 Triglycerides 94 Cholesterol 166 LDL Cholesterol, Calc 102 HDL Cholesterol 46 Vitamin B12 284 Folate 6.2 TSH 2.62 Free T4 1.02 Imaging Diagnostic Imaging Impressions Head CT 03/30/23 14:24 IMPRESSION: No acute intracranial process seen. DS: Summary Hospital Course Hospital Course: Patient is a 38 year old female with hx of Schizoaffective d/o, PTSD and borderline personality d/o who was evaluated by N at her prison d/t urges to self harm and suicidal ideation d/t increased depressive symptoms. Patient has a hx of chronic SI, chronic self-harming behaviors and multiple inpatient admissions. During admission assessment, patient presents calm and cooperative. Patient stated, my birthday was last week and ever since my sister I don't like my birthday; so I get depressed. There is also a client in my prison that doesn't stop picking on me. He told me it's my fault my sister got murdered. I like my prison other than that . Patient reports she begins to bang her head when she feels overwhelmed. Patient stated, When I hear voices, I get overwhelmed and start banging my head . Patient reports she would like to resume ECT. She currently reports suicidal ideation and is on a 1:1 for safety precautions. Denies HI/VH. Patient reports feeling depressed and irritable today. Patient stated, I'm glad I got cleared for ECT. I'm trying to not bang my head but it's hard . Patient reports she continues to have suicidal ideation with no plan. Patient states she will try to stay out of bed and go to more groups today . Patient reports she continues to feel depressed today. Patient stated, I'm looking forward to getting ECT. I just want to feel better . Patient laughing and joking at times with staff. Patient reports she continues to have suicidal ideation with no plan. Pt states she did not refuse my medications last night, they just never gave them to me . Will have ECT on Wednesday. Added second lidocaine patch to lumbar area for low back pain, miralax PRN constipation. Increased prazosin to 18 mg QHS for nightmares and insomnia. no notable events in the past 24H. BP slightly lowered after prazosin increase, will not make any further increases today. pt asking for meds to help her sleep, agrees to zyprexa 10 mg PO PRN. ECT #1 tomorrow. Patient received ECT this morning. Pt stated, I'm feeling better after waking up from the ECT. I feel relieved. I'm not feeling suicidal or having voices. I want to go back to my prison and get ECT outpatient because I don't like being in the hospital . Patient has been active and social on the unit. Denies SI/HI/VH/AH. Plan will be to discharge patient to prison and will have ECT this week outpatient. Patient is aware and happy with plan. detention to [facility] pick[facility] patient. Patient presents as happy and joking. Looking forward to receiving ECT again tomorrow. Pt denies SI/HI/VH/AH at this time. Time spent discussing smoking cessation with patient: 3 to 10 minutes Status at Discharge Cognitive/behavioral status at discharge: Patient was interviewed prior to discharge and found to be fully oriented and without any SI or HI. Patient has insight and demonstrates good judgment in terms of wanting to pursue treatment. Patient is not in imminent risk of harm to self or others and has a safety plan that includes presenting to the closest ER or calling 911 if feeling unsafe. Patient has been observed closely by nursing and unit staff throughout admission; patient has not engaged in any behaviors that suggest dangerousness to self or others and has demonstrated appropriate behaviors and impulse control. Functional status at discharge: independent ambulation Overall status at discharge: patient is back to baseline Time Spent with Patient Time attestation: Total time managing care of this patient today _30___ minutes. Time spent: Less than 30 minutes Discharge Plan Discharge Anticipated Discharge Date/Time: 04/06/23 11:00 Patient Disposition: Home, Self-Care Discharge Diagnosis: Schizoaffective D/O, PTSD, Borderline Personality D/O Referrals: [facility] Luke [Provider Group] - 1 Week (pcp will call patient to book followup appt.) Discharge Medications: New prazosin 1 mg Capsule 3 mg PO BEDTIME 30 Days Qty: 90 0RF Protocol: Hold for SBP< HOLD for SBP < : 90 Continued haloperidol 5 mg tablet 1 tab PO TID PRN (Reason: Agitation) diphenhydramine HCl [Banophen] 50 mg capsule 2 cap PO BEDTIME hydroxyzine pamoate 50 mg capsule 1 cap PO BID PRN (Reason: Anxiety) zolpidem 10 mg tablet 1 tab PO BEDTIME acetaminophen 500 mg tablet 1 tab PO Q6H PRN (Reason: pain) albuterol sulfate [ProAir HFA] 90 mcg/actuation HFA aerosol inhaler 2 puff inhalation BID PRN (Reason: Wheezing) nicotine (polacrilex) 2 mg Gum 2 mg BUCCAL Q2H PRN (Reason: Smoking Cessation) omeprazole 20 mg Tablet,Delayed Release (Dr/Ec) 20 mg PO DAILY lithium carbonate 300 mg tablet 300 mg PO DAILY@1700 clonidine HCl 0.1 mg tablet 1 tab PO TID benztropine 0.5 mg tablet 1 tab PO BID haloperidol decanoate 100 mg/mL solution 100 mg IM Q4W Rx Instructions: NEXT DOSE: 04/16/23 duloxetine 60 mg capsule,delayed release(DR/EC) 1 cap PO DAILY cetirizine 10 mg tablet 1 tab PO DAILY fluticasone propion-salmeterol [Advair HFA] 230-21 mcg/actuation HFA aerosol inhaler 2 puff INHALATION BID trazodone 100 mg tablet 200 mg PO BEDTIME PRN (Reason: Insomnia) lorazepam 1 mg tablet 1 mg PO TID PRN (Reason: Anxiety) prazosin 5 mg capsule 15 mg PO BEDTIME Rx Instructions: TAKE WITH 1 MG FOR TOTAL DOSE 16MG PM Discontinued prazosin 1 mg capsule 1 mg PO BEDTIME Rx Instructions: TAKE WITH 15MG FOR TOTAL DOSE OF 16MG PM Discharge Orders: Discharge Order (Routine); Ordered 04/06/23 Ordered By: Leelee Masters Diet: Regular diet Activity on Discharge: As tolerated Stand Alone Forms: Patient Portal Discharge page, Community Support Care Plan Goals: Maintain mood and safe behaviors Take medications as prescribed Practice coping skills Continue with outpatient providers and reach out to them as needed Health Concerns: Mood stability and behaviors Plan of Treatment: Follow up with your PCP, psychiatric provider and other outpatient providers regarding above concerns Take medications as prescribed Follow up with ECT. Assessment: Patient was interviewed prior to discharge and found to be fully oriented and without any SI or HI. Patient has insight and demonstrates good judgment in terms of wanting to pursue treatment. Patient is not in imminent risk of harm to self or others and has a safety plan that includes presenting to the closest ER or calling 911 if feeling unsafe. Patient has been observed closely by nursing and unit staff throughout admission; patient has not engaged in any behaviors that suggest dangerousness to self or others and has demonstrated appropriate behaviors and impulse control. Discharge Date/Time: 04/06/23 11:15
[2023-04-06] MEDS: Nicotine 21 MG PATCH.TD24 TRANSDERMA (10:52)
== END 2023-04-06 11:15 | disposition home or self-care (01) | DRG 750 ==
LOC: HO.ED 03-29 16:41 → HO.PADLT16 03-30 15:26
PROVIDERS: Psychiatry & Neurology Psychiatry; Admitting Provider Psychiatry & Neurology Psychiatry; Emergency Provider Emergency Medicine; Responsible Provider Registered Nurse; Visit Provider Psychiatry & Neurology Psychiatry
PROC: GZB4ZZZ Other Electroconvulsive Therapy (ICD-10-PCS; CPT 90870; principal; 2023-04-05 15:00)
DX: F25.1 Schizoaffective disorder, depressive type (principal); R45.851 Suicidal ideations; F17.210 Nicotine dependence, cigarettes, uncomplicated; F60.3 Borderline personality disorder; K21.9 Gastro-esophageal reflux disease without esophagitis; F43.12 Post-traumatic stress disorder, chronic; J44.9 Chronic obstructive pulmonary disease, unspecified; Z20.822 Contact with and (suspected) exposure to COVID-19; Z71.6 Tobacco abuse counseling; Z91.52 Personal history of nonsuicidal self-harm; Z79.51 Long term (current) use of inhaled steroids; Z79.899 Other long term (current) drug therapy
CPT/HCPCS: 36415; 70450; 80053; 80061; 80307; 81003; 82607; 82746; 83036; 84439; 84443; 85027; 87635; 90870; 93005; 99285; J0330; J1642; J1885; J2405; S9485

== ENCOUNTER → 2023-03-29 08:46 | Outpatient (BNV) | payer OTHER, SELFPAY | PROVIDERS: Emergency Provider Emergency Medicine; Visit Provider Internal Medicine Cardiovascular Disease | DX: Z51.81 Encounter for therapeutic drug level monitoring (principal) | CPT/HCPCS: 93010 ==

== ENCOUNTER → 2023-03-30 15:19 | Outpatient (BNV) | payer OTHER, SELFPAY | PROVIDERS: Admitting Provider Psychiatry & Neurology Psychiatry; Emergency Provider Emergency Medicine; Responsible Provider Registered Nurse; Visit Provider Registered Nurse | DX: F25.1 Schizoaffective disorder, depressive type (principal); R45.851 Suicidal ideations; F43.12 Post-traumatic stress disorder, chronic; F60.3 Borderline personality disorder | CPT/HCPCS: 90792; 90870; 99231; 99232; 99238 ==

== ENCOUNTER 2023-04-07 06:02 | Day surgery (SDC) | payer OTHER, SELFPAY ==
[2023-04-07 06:48] VITALS: BP 155/99; PULSE 93; RESP 20; TEMP 36.6; O2SAT 98; BMI 43.3
--- NOTE | 2023-04-07 07:02 | P.CONAN_ITS ---
[facility] Active Problems Active Problems: All Active Problems (Updated 03/28/23 @ 21:41 by Rosi Barcenas MD) Suicidal ideation (Acute) Intentional self-harm (Acute) COPD (chronic obstructive pulmonary disease) (Acute) Asthma (Acute) Adjustment disorder (Acute) Anxiety (Acute) Injury of ligament of right knee (Acute) Sprain of anterior cruciate ligament of right knee (Acute) Hernia (Chronic) Schizoaffective disorder, depressive type (Chronic) Chronic post-traumatic stress disorder (PTSD) (Chronic) Increased BMI (Acute) GERD (gastroesophageal reflux disease) (Acute) Borderline personality disorder (Chronic) Past Medical History Medical History Acute post-traumatic stress disorder Adjustment disorder Anxiety Asthma Borderline personality disorder Chronic post-traumatic stress disorder (PTSD) COPD (chronic obstructive pulmonary disease) COVID-19 COVID-19 Depression GERD (gastroesophageal reflux disease) History of electroconvulsive therapy Increased BMI Injury, self-inflicted Intentional self-harm PTSD (post-traumatic stress disorder) Recurrent major depression-severe Schizoaffective disorder Self-harming behavior Sprain of left foot Suicidal ideation Suicidal ideation Family History Family History Mother Brain cancer Other No family history of cardiac disease Family history of problems with anesthesia: No Surgical History History of Problems with Anesthesia: No Social History Social History Household Members: Other Household Members Other:: assisted Housing: Other Housing Other:: assisted Do you presently have visiting nurse or other home services: No Alcohol intake: never Patient Tobacco Use Status: Current someday Tobacco user Tobacco use type: Cigarette Cigarette Packs Per Day: 0.5 Cigarettes Per Day: 10.0 Years Smoked: 20 e-Cigarette/Vaping Use: Never Used Second Hand Smoke Exposure: No Substance Use Type: Marijuana Advance Directives: No Advance Directives Information Provided: Yes service: No Sexual orientation: Straight/Heterosexual Meds Allergies Allergy/AdvReac Type Severity Reaction Status Date / Time carbamazepine [From TEGRETOL] AdvReac Mild Nausea and Verified 03/10/23 10:29 Vomiting topiramate [From Topamax] AdvReac Mild Nausea and Verified 03/10/23 10:29 Vomiting Home Medications Medication Instructions Recorded Confirmed Last Taken Type acetaminophen 500 mg tablet 1 tab PO Q6H PRN pain 08/14/22 03/29/23 03/13/23 History albuterol sulfate 90 mcg/actuation 2 puff inhalation BID PRN Wheezing 08/14/22 03/29/23 03/13/23 History aerosol inhaler (ProAir HFA) diphenhydramine HCl 50 mg capsule 2 cap PO BEDTIME 08/14/22 03/29/23 03/24/23 History (Banophen) haloperidol 5 mg tablet 1 tab PO TID PRN Agitation 08/14/22 03/29/23 03/13/23 History hydroxyzine pamoate 50 mg capsule 1 cap PO BID PRN Anxiety 08/14/22 03/29/23 03/13/23 History nicotine (polacrilex) 2 mg gum 2 mg buccal Q2H PRN Smoking 08/14/22 03/29/23 03/13/23 History Cessation omeprazole 20 mg tablet,delayed 20 mg PO DAILY 08/14/22 03/29/23 03/24/23 History release zolpidem 10 mg tablet 1 tab PO BEDTIME 08/14/22 03/29/23 03/24/23 History cetirizine 10 mg tablet 1 tab PO DAILY 10/07/22 03/29/23 03/24/23 History fluticasone propionate 230 2 puff inhalation BID 10/07/22 03/29/23 03/24/23 History mcg-salmeterol 21 mcg/actuation HFA inhaler (Advair HFA) benztropine 0.5 mg tablet 1 tab PO BID 10/26/22 03/29/23 03/24/23 History clonidine HCl 0.1 mg tablet 1 tab PO TID 10/26/22 03/29/23 03/24/23 History duloxetine 60 mg capsule,delayed 1 cap PO DAILY 10/26/22 03/29/23 03/24/23 History release haloperidol decanoate 100 mg/mL 100 mg IM Q4W 10/26/22 03/29/23 03/19/23 History intramuscular solution lithium carbonate 300 mg tablet 300 mg PO DAILY@1700 10/26/22 03/29/23 03/24/23 History trazodone 100 mg tablet 200 mg PO BEDTIME PRN Insomnia 12/25/22 03/29/23 03/24/23 History lorazepam 1 mg tablet 1 mg PO TID PRN Anxiety 03/25/23 03/29/23 Unknown History prazosin 5 mg capsule 15 mg PO BEDTIME 03/25/23 03/29/23 03/24/23 History Exam Exam Date and Time: April 07, 2023 0702 Height,Weight and Vital Signs: Height 4 ft 9 in Weight 90.718 kg Last Vital Signs Temp 97.9 F 04/07/23 06:48 Pulse 93 04/07/23 06:48 Resp 20 04/07/23 06:48 BP 155/99 H 04/07/23 06:48 Pulse Ox 98 04/07/23 06:48 O2 Del Method Room Air 04/07/23 06:48 Airway Mallampati Class: II (missing 2 teeth) TM Dist: >3cm Neck ROM: Full Heart: rrr Lungs: cta Assessment and Plan Assessment Anesthesia Assessment: Anesthesia Plan Discussed and Chart Reviewed Final Anesthetic Review Family History of Problems with Anesthesia: No History of Problems with Anesthesia: No NPO: Yes ASA Class: III Final Preanesthetic Review: No Changes in Pt Med Stat, Meds/Allgs Chart Reviewed and Consent Obtained/Reviewed Patient Risk: Intermediate Procedure Risk: Intermediate Anesthetic Plan Anesthetic Plan: GA Disposition: Standard PACU
--- NOTE | 2023-04-07 07:42 | MHC.SHP ---
Pre-Procedural Eval Section A Date of Service: 04/07/23 The patient is an INPATIENT: No Changes since office visit: No Cold of Flu in the past 2 weeks, No New Medical Problems, No Changes in Medication and No Patient answered all questions The History & Physical has been completed within 30 days and I have reviewed it.: Yes Section B Chief Complaint: Major depressive disorder, recurrent, severe with Allergies: Allergies Allergy/AdvReac Type Severity Reaction Status Date / Time carbamazepine [From TEGRETOL] AdvReac Mild Nausea and Verified 03/10/23 10:29 Vomiting topiramate [From Topamax] AdvReac Mild Nausea and Verified 03/10/23 10:29 Vomiting Plan I have reviewed the history and physical and performed a pertinent physical examination on my patient. No changes have occurred unless specified. Time Spent With Patient Time: Total time managing care of this patient today ____ minutes.
--- NOTE | 2023-04-07 07:56 | HO.ECTPROC ---
ECT Procedure Note Diagnosis/Treatment Date of Service: 04/07/23 Diagnosis: Schizoaffective Disorder Previous ECT Date: 04/05/23 Treatment: Maintenance Interval Clinical Notes: The patient was discharged yesterday, she feels much better, no side effects with previous ECT. Time: Total time managing care of this patient today __30__ minutes. ECT Settings Device: THYMATRON DGx Electrode Placement: Bitemporal Program/Pulse Width: 0.50 Energy Percent: 100 Seizure Duration By EEG (in seconds): 35 Medications Administration General Anesthetic: Etomidate (14) Muscle Relaxant: Succinylcholine (100) Ancillary Medications Analgesics: Torodol - Pre ECT Anti-emetics: Zofran - Pre ECT Airway Management Airway Management: Bag Mask Ventilation Treatment Recommendations No Changes Recommended: No change Pt Tolerated Procedure w/o Issue: Yes
[2023-04-07 08:05] VITALS: BP 139/90; PULSE 89; RESP 20; TEMP 37.2; O2SAT 97
[2023-04-07 08:10] VITALS: BP 131/86; PULSE 94; RESP 22; O2SAT 96
[2023-04-07 08:15] VITALS: BP 139/83; PULSE 86; RESP 20; O2SAT 97
[2023-04-07 08:20] VITALS: BP 144/92; PULSE 82; RESP 20; O2SAT 98
[2023-04-07 08:35] VITALS: BP 143/92; PULSE 89; RESP 22; O2SAT 99
== END 2023-04-07 09:13 | disposition home or self-care (01) ==
PROVIDERS: Visit Provider Psychiatry & Neurology Psychiatry
PROC: (CPT 90870; principal; 2023-04-07 08:00)
DX: F25.1 Schizoaffective disorder, depressive type (principal); F41.1 Generalized anxiety disorder; F43.10 Post-traumatic stress disorder, unspecified; J44.9 Chronic obstructive pulmonary disease, unspecified; Z79.51 Long term (current) use of inhaled steroids; Z79.899 Other long term (current) drug therapy; Z88.8 Allergy status to other drugs, medicaments and biological substances; F17.210 Nicotine dependence, cigarettes, uncomplicated
CPT/HCPCS: 90870; J0330; J1642; J1885; J2405

== ENCOUNTER → 2023-04-07 06:02 | Outpatient (BNV) | payer OTHER, SELFPAY | PROVIDERS: Visit Provider Psychiatry & Neurology Psychiatry | DX: F33.3 Major depressive disorder, recurrent, severe with psychotic symptoms (principal) | CPT/HCPCS: 90870 ==

== ENCOUNTER 2023-04-09 11:37 | Day surgery (SDC) | payer OTHER, SELFPAY ==
[2023-04-09] VITALS (7 sets, daily range): BP systolic 102–158; BP diastolic 48–98; PULSE 82–102; RESP 16–20; TEMP 36.4–36.6; O2SAT 95–97; BMI 43.4
--- NOTE | 2023-04-09 12:48 | HO.ANESPROP2 ---
HPI - Anesthesia Eval Consult details Narrative: Schizoaffective Disorder PMFSH Active Problems Active Problems: All Active Problems (Updated 03/28/23 @ 21:41 by Rosi Barcenas MD) Suicidal ideation (Acute) Intentional self-harm (Acute) COPD (chronic obstructive pulmonary disease) (Acute) Asthma (Acute) Adjustment disorder (Acute) Anxiety (Acute) Injury of ligament of right knee (Acute) Sprain of anterior cruciate ligament of right knee (Acute) Hernia (Chronic) Schizoaffective disorder, depressive type (Chronic) Chronic post-traumatic stress disorder (PTSD) (Chronic) Increased BMI (Acute) GERD (gastroesophageal reflux disease) (Acute) Borderline personality disorder (Chronic) Past Medical History Medical History Acute post-traumatic stress disorder Adjustment disorder Anxiety Asthma Borderline personality disorder Chronic post-traumatic stress disorder (PTSD) COPD (chronic obstructive pulmonary disease) COVID-19 COVID-19 Depression GERD (gastroesophageal reflux disease) History of electroconvulsive therapy Increased BMI Injury, self-inflicted Intentional self-harm PTSD (post-traumatic stress disorder) Recurrent major depression-severe Schizoaffective disorder Self-harming behavior Sprain of left foot Suicidal ideation Suicidal ideation Family History Family History Mother Brain cancer Other No family history of cardiac disease Family history of problems with anesthesia: No Surgical History History of Problems with Anesthesia: No Social History Social History Household Members: Other Household Members Other:: detention Housing: Other Housing Other:: detention Do you presently have visiting nurse or other home services: No Alcohol intake: never Patient Tobacco Use Status: Current someday Tobacco user Tobacco use type: Cigarette Cigarette Packs Per Day: 0.5 Cigarettes Per Day: 10.0 Years Smoked: 20 e-Cigarette/Vaping Use: Never Used Second Hand Smoke Exposure: No Substance Use Type: Marijuana Advance Directives: No Advance Directives Information Provided: Yes service: No Sexual orientation: Straight/Heterosexual Meds Allergies Allergy/AdvReac Type Severity Reaction Status Date / Time carbamazepine [From TEGRETOL] AdvReac Mild Nausea and Verified 03/10/23 10:29 Vomiting topiramate [From Topamax] AdvReac Mild Nausea and Verified 03/10/23 10:29 Vomiting Home Medications Medication Instructions Recorded Confirmed Last Taken Type acetaminophen 500 mg tablet 1 tab PO Q6H PRN pain 08/14/22 03/29/23 03/13/23 History albuterol sulfate 90 mcg/actuation 2 puff inhalation BID PRN Wheezing 08/14/22 03/29/23 03/13/23 History aerosol inhaler (ProAir HFA) diphenhydramine HCl 50 mg capsule 2 cap PO BEDTIME 08/14/22 03/29/23 03/24/23 History (Banophen) haloperidol 5 mg tablet 1 tab PO TID PRN Agitation 08/14/22 03/29/23 03/13/23 History hydroxyzine pamoate 50 mg capsule 1 cap PO BID PRN Anxiety 08/14/22 03/29/23 03/13/23 History nicotine (polacrilex) 2 mg gum 2 mg buccal Q2H PRN Smoking 08/14/22 03/29/23 03/13/23 History Cessation omeprazole 20 mg tablet,delayed 20 mg PO DAILY 08/14/22 03/29/23 03/24/23 History release zolpidem 10 mg tablet 1 tab PO BEDTIME 08/14/22 03/29/23 03/24/23 History cetirizine 10 mg tablet 1 tab PO DAILY 10/07/22 03/29/23 03/24/23 History fluticasone propionate 230 2 puff inhalation BID 10/07/22 03/29/23 03/24/23 History mcg-salmeterol 21 mcg/actuation HFA inhaler (Advair HFA) benztropine 0.5 mg tablet 1 tab PO BID 10/26/22 03/29/23 03/24/23 History clonidine HCl 0.1 mg tablet 1 tab PO TID 10/26/22 03/29/23 03/24/23 History duloxetine 60 mg capsule,delayed 1 cap PO DAILY 10/26/22 03/29/23 03/24/23 History release haloperidol decanoate 100 mg/mL 100 mg IM Q4W 10/26/22 03/29/23 03/19/23 History intramuscular solution lithium carbonate 300 mg tablet 300 mg PO DAILY@1700 10/26/22 03/29/23 03/24/23 History trazodone 100 mg tablet 200 mg PO BEDTIME PRN Insomnia 12/25/22 03/29/23 03/24/23 History lorazepam 1 mg tablet 1 mg PO TID PRN Anxiety 03/25/23 03/29/23 Unknown History prazosin 5 mg capsule 15 mg PO BEDTIME 03/25/23 03/29/23 03/24/23 History Exam Exam Date and Time: April 09, 2023 1248 Airway Mallampati Class: II TM Dist: >3cm Neck ROM: Full Loose/Missing/Broken Teeth: Yes (missing 2 teeth) Heart: [id number] Lungs: CTA b/l Assessment and Plan Assessment Anesthesia Assessment: Anesthesia Plan Discussed and Chart Reviewed Final Anesthetic Review Family History of Problems with Anesthesia: No History of Problems with Anesthesia: No NPO: Yes ASA Class: III Final Preanesthetic Review: No Changes in Pt Med Stat, Meds/Allgs Chart Reviewed, Consent Obtained/Reviewed and Anes Risks/Benef Reviewed Patient Risk: Intermediate Procedure Risk: Intermediate Assessment/Block/Sedation in SS: Assess/Block/Sedation-SS Anesthetic Plan Anesthetic Plan: GA and Agree w/ Assess. and Plan Disposition: Standard PACU
--- NOTE | 2023-04-09 13:37 | MHC.SHP ---
Pre-Procedural Eval Section A Date of Service: 04/09/23 The patient is an INPATIENT: No Changes since office visit: Yes Cold of Flu in the past 2 weeks, Yes New Medical Problems, Yes Changes in Medication and Yes Patient answered all questions The History & Physical has been completed within 30 days and I have reviewed it.: No Section B Chief Complaint: depression Allergies: Allergies Allergy/AdvReac Type Severity Reaction Status Date / Time carbamazepine [From TEGRETOL] AdvReac Mild Nausea and Verified 03/10/23 10:29 Vomiting topiramate [From Topamax] AdvReac Mild Nausea and Verified 03/10/23 10:29 Vomiting Plan I have reviewed the history and physical and performed a pertinent physical examination on my patient. No changes have occurred unless specified. Time Spent With Patient Time: Total time managing care of this patient today ____ minutes.
--- NOTE | 2023-04-09 14:01 | HO.ECTPROC ---
ECT Procedure Note Diagnosis/Treatment Date of Service: 04/09/23 Diagnosis: Schizoaffective Disorder Previous ECT Date: 04/07/23 Treatment: Maintenance Interval Clinical Notes: The patient reported resolution of dysphoria and suicidality. No side effects Time: Total time managing care of this patient today _30___ minutes. ECT Settings Device: THYMATRON DGx Electrode Placement: Bitemporal Program/Pulse Width: 0.50 Energy Percent: 100 Seizure Duration By EEG (in seconds): 31 By Motor Observation (in seconds): 21 Medications Administration General Anesthetic: Etomidate (14) Muscle Relaxant: Succinylcholine (100) Ancillary Medications Analgesics: Torodol - Pre ECT Anti-emetics: Zofran - Pre ECT Airway Management Airway Management: Bag Mask Ventilation Treatment Recommendations No Changes Recommended: No change Pt Tolerated Procedure w/o Issue: Yes
== END 2023-04-09 15:08 | disposition home or self-care (01) ==
PROVIDERS: Visit Provider Psychiatry & Neurology Psychiatry
PROC: (CPT 90870; principal; 2023-04-09 15:00)
DX: F25.1 Schizoaffective disorder, depressive type (principal); F41.1 Generalized anxiety disorder; F43.10 Post-traumatic stress disorder, unspecified; J44.9 Chronic obstructive pulmonary disease, unspecified; Z79.51 Long term (current) use of inhaled steroids; Z79.899 Other long term (current) drug therapy; Z88.8 Allergy status to other drugs, medicaments and biological substances; F17.210 Nicotine dependence, cigarettes, uncomplicated
CPT/HCPCS: 90870; J0330; J1642; J1885; J2405

== ENCOUNTER → 2023-04-09 11:37 | Outpatient (BNV) | payer OTHER, SELFPAY | PROVIDERS: Visit Provider Psychiatry & Neurology Psychiatry | DX: F33.3 Major depressive disorder, recurrent, severe with psychotic symptoms (principal) | CPT/HCPCS: 90870 ==

== ENCOUNTER 2023-04-16 06:08 | Day surgery (SDC) | payer OTHER, SELFPAY ==
[2023-04-16] VITALS (7 sets, daily range): BP systolic 125–167; BP diastolic 72–105; PULSE 85–98; RESP 14–20; TEMP 36.3–36.9; O2SAT 94–100; BMI 43.4
--- NOTE | 2023-04-16 08:36 | MHC.SHP ---
Pre-Procedural Eval Section A Date of Service: 04/16/23 The patient is an INPATIENT: Yes Changes since office visit: No Cold of Flu in the past 2 weeks, No New Medical Problems, No Changes in Medication and No Patient answered all questions The History & Physical has been completed within 30 days and I have reviewed it.: Yes Section B Chief Complaint: depression Details of Present Illness: Long history of Schizoaffective disorder bipolar type with several admissions for self-harming. Responds very well to ECT. Now currently inpatient. Relevant Family History (Specify if Yes): Yes Relevant Social History: None Present Medications: see Short Stay Collaborative assessment Medical History: No relevant PMH History of Previous Operations: No relevant previous surgery Allergies: Allergies Allergy/AdvReac Type Severity Reaction Status Date / Time carbamazepine [From TEGRETOL] AdvReac Mild Nausea and Verified 03/10/23 10:29 Vomiting topiramate [From Topamax] AdvReac Mild Nausea and Verified 03/10/23 10:29 Vomiting Review of Systems Sugical H&P ROS: Negative: Constitution, Cardiovascular, Respiratory, Neurological, Psychiatric, Hem-Onc, Allergic/Immunologic, Gastrointestinal, Genitourinary, Musculoskeletal, Integumentary, Endocrine and Eyes/Ears/Nose/Throat Exam Surgical H&P Exam: Normal: HEENT, Normal: Heart (rr no murmur ), Normal: Lungs (clear), Normal: Extremities, Normal: Abdomen, Normal: Skin and Normal: Neurological Plan Diagnosis/Plan: Unchanged I have reviewed the history and physical and performed a pertinent physical examination on my patient. No changes have occurred unless specified. Time Spent With Patient Time: Total time managing care of this patient today ____ minutes.
--- NOTE | 2023-04-16 08:42 | P.CONAN_ITS ---
HPI - Anesthesia Eval Consult details Narrative: 38yo female patient for ECT PMFSH Active Problems Active Problems: All Active Problems (Updated 04/14/23 @ 00:02 by Adiel Sevilla) Intentional self-harm (Acute) COPD (chronic obstructive pulmonary disease) (Acute) Asthma (Acute) Adjustment disorder (Acute) Anxiety (Acute) Injury of ligament of right knee (Acute) Sprain of anterior cruciate ligament of right knee (Acute) Hernia (Chronic) Schizoaffective disorder, depressive type (Chronic) Chronic post-traumatic stress disorder (PTSD) (Chronic) Increased BMI (Acute) GERD (gastroesophageal reflux disease) (Acute) Borderline personality disorder (Chronic) Past Medical History Medical History Acute post-traumatic stress disorder Adjustment disorder Anxiety Asthma Borderline personality disorder Chronic post-traumatic stress disorder (PTSD) COPD (chronic obstructive pulmonary disease) COVID-19 COVID-19 Depression GERD (gastroesophageal reflux disease) History of electroconvulsive therapy Increased BMI Injury, self-inflicted Intentional self-harm PTSD (post-traumatic stress disorder) Recurrent major depression-severe Schizoaffective disorder Self-harming behavior Sprain of left foot Suicidal ideation Suicidal ideation Family History Family History Mother Brain cancer Other No family history of cardiac disease Family history of problems with anesthesia: No Surgical History History of Problems with Anesthesia: No Social History Social History Household Members: Other Household Members Other:: [facility] Housing: Other Housing Other:: [facility] Do you presently have visiting nurse or other home services: No Alcohol intake: never Patient Tobacco Use Status: Current someday Tobacco user Tobacco use type: Cigarette Cigarette Packs Per Day: 0.5 Cigarettes Per Day: 10.0 Years Smoked: 20 e-Cigarette/Vaping Use: Never Used Second Hand Smoke Exposure: No Substance Use Type: Marijuana service: No Sexual orientation: Straight/Heterosexual Meds Allergies Allergy/AdvReac Type Severity Reaction Status Date / Time carbamazepine [From TEGRETOL] AdvReac Mild Nausea and Verified 03/10/23 10:29 Vomiting topiramate [From Topamax] AdvReac Mild Nausea and Verified 03/10/23 10:29 Vomiting Home Medications Medication Instructions Recorded Confirmed Last Taken Type acetaminophen 500 mg tablet 1 tab PO Q6H PRN pain 08/14/22 03/29/23 03/13/23 History albuterol sulfate 90 mcg/actuation 2 puff inhalation BID PRN Wheezing 08/14/22 03/29/23 03/13/23 History aerosol inhaler (ProAir HFA) diphenhydramine HCl 50 mg capsule 2 cap PO BEDTIME 08/14/22 03/29/23 03/24/23 History (Banophen) haloperidol 5 mg tablet 1 tab PO TID PRN Agitation 08/14/22 03/29/23 03/13/23 History hydroxyzine pamoate 50 mg capsule 1 cap PO BID PRN Anxiety 08/14/22 03/29/23 03/13/23 History nicotine (polacrilex) 2 mg gum 2 mg buccal Q2H PRN Smoking 08/14/22 03/29/23 03/13/23 History Cessation omeprazole 20 mg tablet,delayed 20 mg PO DAILY 08/14/22 03/29/23 03/24/23 History release zolpidem 10 mg tablet 1 tab PO BEDTIME 08/14/22 03/29/23 03/24/23 History cetirizine 10 mg tablet 1 tab PO DAILY 10/07/22 03/29/23 03/24/23 History fluticasone propionate 230 2 puff inhalation BID 10/07/22 03/29/23 03/24/23 History mcg-salmeterol 21 mcg/actuation HFA inhaler (Advair HFA) benztropine 0.5 mg tablet 1 tab PO BID 10/26/22 03/29/23 03/24/23 History clonidine HCl 0.1 mg tablet 1 tab PO TID 10/26/22 03/29/23 03/24/23 History duloxetine 60 mg capsule,delayed 1 cap PO DAILY 10/26/22 03/29/23 03/24/23 History release haloperidol decanoate 100 mg/mL 100 mg IM Q4W 10/26/22 03/29/23 03/19/23 History intramuscular solution lithium carbonate 300 mg tablet 300 mg PO DAILY@1700 10/26/22 03/29/23 03/24/23 History trazodone 100 mg tablet 200 mg PO BEDTIME PRN Insomnia 0503/29/23 03/24/23 History lorazepam 1 mg tablet 1 mg PO TID PRN Anxiety 03/25/23 03/29/23 Unknown History prazosin 5 mg capsule 15 mg PO BEDTIME 03/25/23 03/29/23 03/24/23 History Exam Exam Date and Time: April 16, 2023 0842 Height,Weight and Vital Signs: Height 4 ft 11 in Weight 97.522 kg Last Vital Signs Temp 97.6 F 04/16/23 06:47 Pulse 98 04/16/23 06:47 Resp 20 04/16/23 06:47 BP 129/88 04/16/23 06:47 Pulse Ox 98 04/16/23 06:47 O2 Del Method Room Air 04/16/23 06:47 Airway Mallampati Class: III TM Dist: >3cm Neck ROM: Full Loose/Missing/Broken Teeth: Yes (Missing/broken teeth) Heart: RRR Lungs: CTAB Assessment and Plan Assessment Anesthesia Assessment: Anesthesia Plan Discussed and Chart Reviewed Final Anesthetic Review Family History of Problems with Anesthesia: No History of Problems with Anesthesia: No NPO: Yes ASA Class: III Final Preanesthetic Review: No Changes in Pt Med Stat, Meds/Allgs Chart Reviewed, Consent Obtained/Reviewed and Anes Risks/Benef Reviewed Patient Risk: Intermediate Procedure Risk: Intermediate Assessment/Block/Sedation in SS: Assess/Block/Sedation-SS Anesthetic Plan Anesthetic Plan: GA Disposition: Standard PACU
--- NOTE | 2023-04-16 08:47 | HO.ECTPROC ---
ECT Procedure Note Diagnosis/Treatment Date of Service: 04/16/23 Diagnosis: Major Depressive Disorder and Other (ptsd) Previous ECT Date: 04/07/23 Treatment: Maintenance Interval Clinical Notes: The patient reported resolution of dysphoria and suicidality. no sib x 2 weeks Time: Total time managing care of this patient today ____ minutes. ECT Settings Device: THYMATRON DGx Electrode Placement: Bitemporal Program/Pulse Width: 0.50 Energy Percent: 100 Seizure Duration By EEG (in seconds): 15 Medications Administration General Anesthetic: Etomidate (14) Muscle Relaxant: Succinylcholine (100) Ancillary Medications Analgesics: Torodol - Pre ECT Anti-emetics: Zofran - Pre ECT Airway Management Airway Management: Bag Mask Ventilation Treatment Recommendations Electrode Placement: Bitemporal Program/Pulse Width: 0.50 Notes: lower etom 12 mg as tolerated hyperventilate port infiltrated needs new port Pt Tolerated Procedure w/o Issue: Yes
--- NOTE | 2023-04-16 10:18 | HO.ECTPROC ---
ECT Procedure Note Diagnosis/Treatment Date of Service: 04/16/23 Diagnosis: Major Depressive Disorder and Other (PTSD) Time: Total time managing care of this patient today ____ minutes. ECT Settings Device: THYMATRON DGx
== END 2023-04-16 10:33 | disposition home or self-care (01) ==
PROVIDERS: Visit Provider Psychiatry & Neurology Psychiatry
PROC: (CPT 90870; principal; 2023-04-16 16:00)
DX: F33.8 Other recurrent depressive disorders (principal); F43.12 Post-traumatic stress disorder, chronic; F25.0 Schizoaffective disorder, bipolar type; F60.3 Borderline personality disorder; J44.9 Chronic obstructive pulmonary disease, unspecified; Z88.8 Allergy status to other drugs, medicaments and biological substances
CPT/HCPCS: 90870; J0330; J1885; J2405

== ENCOUNTER → 2023-04-16 06:08 | Outpatient (BNV) | payer OTHER, SELFPAY | PROVIDERS: Visit Provider Psychiatry & Neurology Psychiatry | DX: F33.3 Major depressive disorder, recurrent, severe with psychotic symptoms (principal) | CPT/HCPCS: 90870 ==

== ENCOUNTER 2023-04-20 11:51 | Outpatient (REF) | payer OTHER, SELFPAY ==
--- NOTE | ~2023-04-20 | FL_ITS ---
EXAMINATION: XR FLUOROSCOPY CLINICAL INFORMATION: Difficult access of the port with no blood return COMPARISON: Chest x-ray dated 12/09/2021 TECHNIQUE: After the skin was prepped and draped in usual fashion the port was accessed with the angled port needle. FINDINGS: The port was accessed, blood return was not obtained. Under fluoroscopic guidance contrast was injected and there is normal filling of the port as well as the catheter. Contrast could be seen flowing through the tip of the catheter. There is no change in the position of the tip of the catheter which is in good position at the level of the sinoatrial junction. There is a loop within the catheter just above the level of the proximal clavicle related to the port extending cephalad by approximately 2 rib spaces when compared to the prior chest x-ray. Due to the cephalad migration of the port itself there is the formation of the loop just above the level of the proximal clavicle. There is no evidence of kinking of the tube. FLUOROSCOPY TIME: ) FL/FL fluoroscopy <1hr IMPRESSION: The port was easily accessed with the angle port access needle. There was no blood return. Contrast was injected with filling of the port as well as flow through the tip of the catheter. Once again there is a loop of the catheter catheter just above the level of the proximal clavicle measuring approximately 2 cm in height. This is secondary to cephalad migration of the port itself when compared to the previous chest x-ray dated 12/09/2021.
== END 2023-04-20 11:52 | disposition home or self-care (01) ==
LOC: HO.XRAY 11:51
PROVIDERS: PCP Pediatrics; Visit Provider Psychiatry & Neurology Psychiatry
DX: Z45.2 Encounter for adjustment and management of vascular access device (principal)
CPT/HCPCS: 76000

== ENCOUNTER → 2023-04-20 12:45 | Outpatient (BNV) | payer OTHER, SELFPAY | PROVIDERS: PCP Pediatrics; Visit Provider Radiology Vascular & Interventional Radiology | DX: T82.514A Breakdown (mechanical) of infusion catheter, initial encounter (principal) | CPT/HCPCS: 76000 ==

== ENCOUNTER 2023-05-05 06:07 | Day surgery (SDC) | payer OTHER, SELFPAY ==
[2023-05-05] VITALS (7 sets, daily range): BP systolic 103–147; BP diastolic 67–83; PULSE 90–98; RESP 16–18; TEMP 36.1–36.6; O2SAT 93–97; BMI 40.4
--- NOTE | 2023-05-05 06:53 | HO.ANESPROP2 ---
[facility] Active Problems Active Problems: All Active Problems (Updated 04/14/23 @ 00:02 by Adiel Sevilla) Intentional self-harm (Acute) COPD (chronic obstructive pulmonary disease) (Acute) Asthma (Acute) Adjustment disorder (Acute) Anxiety (Acute) Injury of ligament of right knee (Acute) Sprain of anterior cruciate ligament of right knee (Acute) Hernia (Chronic) Schizoaffective disorder, depressive type (Chronic) Chronic post-traumatic stress disorder (PTSD) (Chronic) Increased BMI (Acute) GERD (gastroesophageal reflux disease) (Acute) Borderline personality disorder (Chronic) Past Medical History Medical History Acute post-traumatic stress disorder Adjustment disorder Anxiety Asthma Borderline personality disorder Chronic post-traumatic stress disorder (PTSD) COPD (chronic obstructive pulmonary disease) COVID-19 COVID-19 Depression GERD (gastroesophageal reflux disease) History of electroconvulsive therapy Increased BMI Injury, self-inflicted Intentional self-harm PTSD (post-traumatic stress disorder) Recurrent major depression-severe Schizoaffective disorder Self-harming behavior Sprain of left foot Suicidal ideation Suicidal ideation Family History Family History Mother Brain cancer Other No family history of cardiac disease Family history of problems with anesthesia: No Surgical History History of Problems with Anesthesia: No Social History Social History Household Members: Other Household Members Other:: custodial Housing: Other Housing Other:: custodial Do you presently have visiting nurse or other home services: No Alcohol intake: never Patient Tobacco Use Status: Current someday Tobacco user Tobacco use type: Cigarette Cigarette Packs Per Day: 0.5 Cigarettes Per Day: 10.0 Years Smoked: 20 e-Cigarette/Vaping Use: Never Used Second Hand Smoke Exposure: No Substance Use Type: Marijuana Advance Directives: No Advance Directives Information Provided: Yes service: No Sexual orientation: Straight/Heterosexual Meds Allergies Allergy/AdvReac Type Severity Reaction Status Date / Time carbamazepine [From TEGRETOL] AdvReac Mild Nausea and Verified 03/10/23 10:29 Vomiting topiramate [From Topamax] AdvReac Mild Nausea and Verified 03/10/23 10:29 Vomiting Home Medications Medication Instructions Recorded Confirmed Last Taken Type acetaminophen 500 mg tablet 1 tab PO Q6H PRN pain 08/14/22 03/29/23 03/13/23 History albuterol sulfate 90 mcg/actuation 2 puff inhalation BID PRN Wheezing 08/14/22 03/29/23 03/13/23 History aerosol inhaler (ProAir HFA) diphenhydramine HCl 50 mg capsule 2 cap PO BEDTIME 08/14/22 03/29/23 03/24/23 History (Banophen) haloperidol 5 mg tablet 1 tab PO TID PRN Agitation 08/14/22 03/29/23 03/13/23 History hydroxyzine pamoate 50 mg capsule 1 cap PO BID PRN Anxiety 08/14/22 03/29/23 03/13/23 History nicotine (polacrilex) 2 mg gum 2 mg buccal Q2H PRN Smoking 08/14/22 03/29/23 03/13/23 History Cessation omeprazole 20 mg tablet,delayed 20 mg PO DAILY 08/14/22 03/29/23 03/24/23 History release zolpidem 10 mg tablet 1 tab PO BEDTIME 08/14/22 03/29/23 03/24/23 History cetirizine 10 mg tablet 1 tab PO DAILY 10/07/22 03/29/23 03/24/23 History fluticasone propionate 230 2 puff inhalation BID 10/07/22 03/29/23 03/24/23 History mcg-salmeterol 21 mcg/actuation HFA inhaler (Advair HFA) benztropine 0.5 mg tablet 1 tab PO BID 10/26/22 03/29/23 03/24/23 History clonidine HCl 0.1 mg tablet 1 tab PO TID 10/26/22 03/29/23 03/24/23 History duloxetine 60 mg capsule,delayed 1 cap PO DAILY 10/26/22 03/29/23 03/24/23 History release haloperidol decanoate 100 mg/mL 100 mg IM Q4W 10/26/22 03/29/23 03/19/23 History intramuscular solution lithium carbonate 300 mg tablet 300 mg PO DAILY@1700 10/26/22 03/29/23 03/24/23 History trazodone 100 mg tablet 200 mg PO BEDTIME PRN Insomnia 12/25/22 03/29/2323 History lorazepam 1 mg tablet 1 mg PO TID PRN Anxiety 03/25/23 03/29/23 Unknown History prazosin 5 mg capsule 15 mg PO BEDTIME 03/25/23 03/29/23 03/24/23 History Exam Exam Date and Time: May 05, 2023 0653 Height,Weight and Vital Signs: Height 4 ft 11 in Weight 90.718 kg Last Vital Signs Temp 97 F 05/05/23 06:32 Pulse 92 05/05/23 06:32 Resp 16 05/05/23 06:32 BP 128/83 05/05/23 06:32 Pulse Ox 97 05/05/23 06:32 O2 Del Method Room Air 05/05/23 06:32 Airway Mallampati Class: II (missing a couple, nothing loose) TM Dist: >3cm Neck ROM: Full Heart: rrr Lungs: cta Assessment and Plan Assessment Anesthesia Assessment: Anesthesia Plan Discussed and Chart Reviewed Final Anesthetic Review Family History of Problems with Anesthesia: No History of Problems with Anesthesia: No NPO: Yes ASA Class: III Final Preanesthetic Review: No Changes in Pt Med Stat, Meds/Allgs Chart Reviewed and Consent Obtained/Reviewed Patient Risk: Intermediate Procedure Risk: Intermediate Anesthetic Plan Anesthetic Plan: GA Disposition: Standard PACU
--- NOTE | 2023-05-05 06:54 | MHC.SHP ---
Pre-Procedural Eval Section A Date of Service: 05/05/23 The patient is an INPATIENT: No Changes since office visit: Yes New Medical Problems, Yes Changes in Medication and Yes Patient answered all questions; No Cold of Flu in the past 2 weeks The History & Physical has been completed within 30 days and I have reviewed it.: Yes Section B Chief Complaint: depression Allergies: Allergies Allergy/AdvReac Type Severity Reaction Status Date / Time carbamazepine [From TEGRETOL] AdvReac Mild Nausea and Verified 03/10/23 10:29 Vomiting topiramate [From Topamax] AdvReac Mild Nausea and Verified 03/10/23 10:29 Vomiting Plan I have reviewed the history and physical and performed a pertinent physical examination on my patient. No changes have occurred unless specified. Time Spent With Patient Time: Total time managing care of this patient today ____ minutes.
--- NOTE | 2023-05-05 06:56 | HO.ECTPROC ---
ECT Procedure Note Diagnosis/Treatment Date of Service: 05/05/23 Diagnosis: Major Depressive Disorder and Other (ptsd) Previous ECT Date: 04/07/23 Treatment: Maintenance Interval Clinical Notes: The patient reported resolution of dysphoria and suicidality. no sib x 2 weeks this continues looking for work Time: Total time managing care of this patient today __30__ minutes. ECT Settings Device: THYMATRON DGx Electrode Placement: Bitemporal Program/Pulse Width: 0.50 Energy Percent: 100 Seizure Duration By EEG (in seconds): 32 Medications Administration General Anesthetic: Etomidate (14) Muscle Relaxant: Succinylcholine (100) Ancillary Medications Analgesics: Torodol - Pre ECT Anti-emetics: Zofran - Pre ECT Airway Management Airway Management: Bag Mask Ventilation Treatment Recommendations Electrode Placement: Bitemporal Program/Pulse Width: 0.50 Notes: port recently tested doing ok hyperventilate prior to procedure f/u tx oct 4 no c/o cognitive issues Pt Tolerated Procedure w/o Issue: Yes
== END 2023-05-05 09:10 | disposition home or self-care (01) ==
PROVIDERS: PCP Pediatrics; Visit Provider Psychiatry & Neurology Psychiatry
PROC: (CPT 90870; principal; 2023-05-05 08:00)
DX: F33.2 Major depressive disorder, recurrent severe without psychotic features (principal); F43.10 Post-traumatic stress disorder, unspecified; F25.0 Schizoaffective disorder, bipolar type; F60.3 Borderline personality disorder; J44.9 Chronic obstructive pulmonary disease, unspecified; Z79.51 Long term (current) use of inhaled steroids; Z79.899 Other long term (current) drug therapy; Z88.8 Allergy status to other drugs, medicaments and biological substances; F17.210 Nicotine dependence, cigarettes, uncomplicated
CPT/HCPCS: 90870; J0330; J1642; J1885; J2405

== ENCOUNTER → 2023-05-05 06:07 | Outpatient (BNV) | payer OTHER, SELFPAY | PROVIDERS: PCP Pediatrics; Visit Provider Psychiatry & Neurology Psychiatry | DX: F33.3 Major depressive disorder, recurrent, severe with psychotic symptoms (principal) | CPT/HCPCS: 90870 ==

== ENCOUNTER 2023-05-19 05:57 | Day surgery (SDC) | payer OTHER, SELFPAY ==
[2023-05-19] VITALS (7 sets, daily range): BP systolic 128–155; BP diastolic 65–97; PULSE 85–100; RESP 16–20; TEMP 35.9–36.6; O2SAT 95–97; BMI 40.4
--- NOTE | 2023-05-19 07:05 | P.CONAN_ITS ---
[facility] Active Problems Active Problems: All Active Problems (Updated 04/14/23 @ 00:02 by Adiel Sevilla) Intentional self-harm (Acute) COPD (chronic obstructive pulmonary disease) (Acute) Asthma (Acute) Adjustment disorder (Acute) Anxiety (Acute) Injury of ligament of right knee (Acute) Sprain of anterior cruciate ligament of right knee (Acute) Hernia (Chronic) Schizoaffective disorder, depressive type (Chronic) Chronic post-traumatic stress disorder (PTSD) (Chronic) Increased BMI (Acute) GERD (gastroesophageal reflux disease) (Acute) Borderline personality disorder (Chronic) Past Medical History Medical History Acute post-traumatic stress disorder Adjustment disorder Anxiety Asthma Borderline personality disorder Chronic post-traumatic stress disorder (PTSD) COPD (chronic obstructive pulmonary disease) COVID-19 COVID-19 Depression GERD (gastroesophageal reflux disease) History of electroconvulsive therapy Increased BMI Injury, self-inflicted Intentional self-harm PTSD (post-traumatic stress disorder) Recurrent major depression-severe Schizoaffective disorder Self-harming behavior Sprain of left foot Suicidal ideation Suicidal ideation Family History Family History Mother Brain cancer Other No family history of cardiac disease Family history of problems with anesthesia: No Surgical History History of Problems with Anesthesia: No Social History Social History Household Members: Other Household Members Other:: detention Housing: Other Housing Other:: detention Do you presently have visiting nurse or other home services: No Alcohol intake: never Patient Tobacco Use Status: Current someday Tobacco user Tobacco use type: Cigarette Cigarette Packs Per Day: 0.5 Cigarettes Per Day: 10.0 Years Smoked: 20 e-Cigarette/Vaping Use: Never Used Second Hand Smoke Exposure: No Substance Use Type: Marijuana Advance Directives: No Advance Directives Information Provided: Yes service: No Sexual orientation: Straight/Heterosexual Meds Allergies Allergy/AdvReac Type Severity Reaction Status Date / Time carbamazepine [From TEGRETOL] AdvReac Mild Nausea and Verified 03/10/23 10:29 Vomiting topiramate [From Topamax] AdvReac Mild Nausea and Verified 03/10/23 10:29 Vomiting Home Medications Medication Instructions Recorded Confirmed Last Taken Type acetaminophen 500 mg tablet 1 tab PO Q6H PRN pain 08/14/22 03/29/23 03/13/23 History albuterol sulfate 90 mcg/actuation 2 puff inhalation BID PRN Wheezing 08/14/22 03/29/23 03/13/23 History aerosol inhaler (ProAir HFA) diphenhydramine HCl 50 mg capsule 2 cap PO BEDTIME 08/14/22 03/29/23 03/24/23 History (Banophen) haloperidol 5 mg tablet 1 tab PO TID PRN Agitation 08/14/22 03/29/23 03/13/23 History hydroxyzine pamoate 50 mg capsule 1 cap PO BID PRN Anxiety 08/14/22 03/29/23 03/13/23 History nicotine (polacrilex) 2 mg gum 2 mg buccal Q2H PRN Smoking 08/14/22 03/29/23 03/13/23 History Cessation omeprazole 20 mg tablet,delayed 20 mg PO DAILY 08/14/22 03/29/23 03/24/23 History release zolpidem 10 mg tablet 1 tab PO BEDTIME 08/14/22 03/29/23 03/24/23 History cetirizine 10 mg tablet 1 tab PO DAILY 10/07/22 03/29/23 03/24/23 History fluticasone propionate 230 2 puff inhalation BID 10/07/22 03/29/23 03/24/23 History mcg-salmeterol 21 mcg/actuation HFA inhaler (Advair HFA) benztropine 0.5 mg tablet 1 tab PO BID 10/26/22 03/29/23 03/24/23 History clonidine HCl 0.1 mg tablet 1 tab PO TID 10/26/22 03/29/23 03/24/23 History duloxetine 60 mg capsule,delayed 1 cap PO DAILY 10/26/22 03/29/23 03/24/23 History release haloperidol decanoate 100 mg/mL 100 mg IM Q4W 10/26/22 03/29/23 03/19/23 History intramuscular solution lithium carbonate 300 mg tablet 300 mg PO DAILY@1700 10/26/22 03/29/23 03/24/23 History trazodone 100 mg tablet 200 mg PO BEDTIME PRN Insomnia 12/25/22 03/29/23 23 History lorazepam 1 mg tablet 1 mg PO TID PRN Anxiety 03/25/23 03/29/23 Unknown History prazosin 5 mg capsule 15 mg PO BEDTIME 03/25/23 03/29/23 03/24/23 History Exam Exam Date and Time: May 19, 2023704 Height,Weight and Vital Signs: Height 4 ft 11 in Weight 90.718 kg Last Vital Signs Temp 96.7 F L 05/19/23 06:52 Pulse 100 05/19/23 06:52 Resp 20 05/19/23 06:52 BP 146/97 H 05/19/23 06:52 Pulse Ox 97 05/19/23 06:52 O2 Del Method Room Air 05/19/23 06:52 Airway Mallampati Class: II (missing couple, nothing loose) TM Dist: >3cm Neck ROM: Full Heart: rrr Lungs: cta Assessment and Plan Assessment Anesthesia Assessment: Anesthesia Plan Discussed and Chart Reviewed Final Anesthetic Review Family History of Problems with Anesthesia: No History of Problems with Anesthesia: No NPO: Yes ASA Class: III Final Preanesthetic Review: No Changes in Pt Med Stat, Meds/Allgs Chart Reviewed and Consent Obtained/Reviewed Patient Risk: Intermediate Procedure Risk: Intermediate Anesthetic Plan Anesthetic Plan: GA Disposition: Standard PACU
--- NOTE | 2023-05-19 07:10 | MHC.SHP ---
Pre-Procedural Eval Section A Date of Service: 05/19/23 The patient is an INPATIENT: No Changes since office visit: Yes Cold of Flu in the past 2 weeks, Yes New Medical Problems, Yes Changes in Medication and Yes Patient answered all questions The History & Physical has been completed within 30 days and I have reviewed it.: Yes Section B Chief Complaint: depression Allergies: Allergies Allergy/AdvReac Type Severity Reaction Status Date / Time carbamazepine [From TEGRETOL] AdvReac Mild Nausea and Verified 03/10/23 10:29 Vomiting topiramate [From Topamax] AdvReac Mild Nausea and Verified 03/10/23 10:29 Vomiting Plan I have reviewed the history and physical and performed a pertinent physical examination on my patient. No changes have occurred unless specified. Time Spent With Patient Time: Total time managing care of this patient today ____ minutes.
--- NOTE | 2023-05-19 07:57 | HO.ECTPROC ---
ECT Procedure Note Diagnosis/Treatment Date of Service: 05/19/23 Diagnosis: Schizoaffective Disorder Previous ECT Date: 05/05/23 Treatment: Maintenance Interval Clinical Notes: The patient reported improvement of her mood, she feels much better. No self harming behavior for the last 6 weeks, able to cope with stressors in the community. Procedure done as usual, no complications, woke up well. Time: Total time managing care of this patient today __30__ minutes. ECT Settings Device: THYMATRON DGx Electrode Placement: Bitemporal Program/Pulse Width: 0.50 Energy Percent: 100 Seizure Duration By EEG (in seconds): 31 By Motor Observation (in seconds): 20 Medications Administration General Anesthetic: Etomidate (14) Muscle Relaxant: Succinylcholine (100) Ancillary Medications Analgesics: Torodol - Pre ECT Anti-emetics: Zofran - Pre ECT Airway Management Airway Management: Bag Mask Ventilation Treatment Recommendations No Changes Recommended: No change Pt Tolerated Procedure w/o Issue: Yes
== END 2023-05-19 09:59 | disposition home or self-care (01) ==
PROVIDERS: PCP Pediatrics; Visit Provider Psychiatry & Neurology Psychiatry
PROC: (CPT 90870; principal; 2023-05-19 07:30)
DX: F25.9 Schizoaffective disorder, unspecified (principal); F43.12 Post-traumatic stress disorder, chronic; F60.3 Borderline personality disorder; J44.9 Chronic obstructive pulmonary disease, unspecified; Z79.51 Long term (current) use of inhaled steroids; Z79.899 Other long term (current) drug therapy; Z88.8 Allergy status to other drugs, medicaments and biological substances; F17.210 Nicotine dependence, cigarettes, uncomplicated
CPT/HCPCS: 90870; J0330; J1642; J1885; J2405

== ENCOUNTER → 2023-05-19 05:57 | Outpatient (BNV) | payer OTHER, SELFPAY | PROVIDERS: PCP Pediatrics; Visit Provider Psychiatry & Neurology Psychiatry | DX: F33.3 Major depressive disorder, recurrent, severe with psychotic symptoms (principal) | CPT/HCPCS: 90870 ==

== ENCOUNTER 2023-05-19 19:20 | Emergency (ER) | payer OTHER, SELFPAY ==
--- NOTE | 2023-05-19 19:25 | ED.PSYCH ---
HPI - Psych General Chief Complaint: Psychiatric Symptoms Stated Complaint: crisis Time Seen by Provider: 05/19/23 19:31 Source: patient and old records reviewed Mode of arrival: ambulatory Limitations: no limitations History of Present Illness HPI Narrative: 38 yo female with PMH of COPD, schizoaffective disorder, hernia, anxiety, adjustment disorder, GERD, borderline personality disorder here with c/o feeling like she wants to cut and hurt herself she is asking for IM medications to keep her safe. she doesn't like another client and her sister's anniversary is coming up. MD complaint: suicidal ideation and feels depressed Onset (ago): week(s) Duration: getting worse History of same: Yes Relieving factors: none Exacerbating factors: other Context: significant life stressor Associated psychiatric symptoms: depression and suicidal ideation Associated symptoms: denies other symptoms Treatments prior to arrival: none If self harm: admits thoughts of self harm and has plan Related Data Home Medications Medication Instructions Recorded Confirmed acetaminophen 500 mg tablet 1 tab PO Q6H PRN pain 08/14/22 05/19/23 albuterol sulfate 90 mcg/actuation 2 puff inhalation BID PRN Wheezing 08/14/22 05/19/23 aerosol inhaler (ProAir HFA) diphenhydramine HCl 50 mg capsule 2 cap PO BEDTIME 08/14/22 05/19/23 (Banophen) haloperidol 5 mg tablet 1 tab PO TID PRN Agitation 08/14/22 05/19/23 hydroxyzine pamoate 50 mg capsule 1 cap PO BID PRN Anxiety 08/14/22 05/19/23 nicotine (polacrilex) 2 mg gum 2 mg buccal Q2H PRN Smoking 08/14/22 05/19/23 Cessation omeprazole 20 mg tablet,delayed 20 mg PO DAILY 08/14/22 03/29/23 release zolpidem 10 mg tablet 1 tab PO BEDTIME 08/14/22 03/29/23 cetirizine 10 mg tablet 1 tab PO DAILY 10/07/22 05/19/23 fluticasone propionate 230 2 puff inhalation BID 10/07/22 03/29/23 mcg-salmeterol 21 mcg/actuation HFA inhaler (Advair HFA) benztropine 0.5 mg tablet 1 tab PO BID 10/26/22 05/19/23 clonidine HCl 0.1 mg tablet 1 tab PO TID 10/26/22 05/19/23 duloxetine 60 mg capsule,delayed 1 cap PO DAILY 10/26/22 05/19/23 release haloperidol decanoate 100 mg/mL 100 mg IM Q4W 10/26/22 03/29/23 intramuscular solution lithium carbonate 300 mg tablet 300 mg PO DAILY@1700 10/26/22 05/19/23 trazodone 100 mg tablet 200 mg PO BEDTIME PRN Insomnia 12/25/22 03/29/23 lorazepam 1 mg tablet 1 mg PO TID PRN Anxiety 03/25/23 05/19/23 prazosin 5 mg capsule 15 mg PO BEDTIME 03/25/23 03/29/23 Previous Rx's Medication Instructions Recorded prazosin 1 mg capsule 3 mg PO BEDTIME 30 days #90 caps 04/05/23 Allergies Allergy/AdvReac Type Severity Reaction Status Date / Time carbamazepine [From TEGRETOL] AdvReac Mild Nausea and Verified 03/10/23 10:29 Vomiting topiramate [From Topamax] AdvReac Mild Nausea and Verified 03/10/23 10:29 Vomiting Review of Systems Review of Systems: Constitutional : No Fever, No Chills ENT/Mouth : No Ear Pain, No Nasal Congestion, No sore throat Eyes: No Eye Pain, No Swelling, No Redness Cardiovascular : No Chest Pain, No SOB Respiratory : No Cough, No Sputum, No Dyspnea Gastrointestinal : No Nausea, No Vomiting, No Diarrhea, No Hematochezia, No Melena Genitourinary : No Dysuria, No Urinary Frequency, No Hematuria Musculoskeletal : No Myalgias Skin : No Skin Lesions, No rash Neuro : No Weakness, No Numbness, No Paresthesias, No Dizziness, No Headache Psych : positive Anxiety, positive Depression, positive SI no HI Heme/Lymph: No Lymphadenopathy Endocrine : No Polyuria, No Polydipsia All other systems reviewed and are negative PMFSH Past Medical History Source: old records reviewed Medical History History of electroconvulsive therapy COVID-19 COVID-19 Sprain of left foot Chronic post-traumatic stress disorder (PTSD) COPD (chronic obstructive pulmonary disease) Increased BMI GERD (gastroesophageal reflux disease) Recurrent major depression-severe Acute post-traumatic stress disorder Injury, self-inflicted Suicidal ideation Self-harming behavior Intentional self-harm Suicidal ideation Borderline personality disorder Schizoaffective disorder Adjustment disorder Asthma Depression Anxiety PTSD (post-traumatic stress disorder) Family History Family History Mother Brain cancer Other No family history of cardiac disease Social History Social History Household Members: Other Household Members Other:: senior living Housing: Other Housing Other:: senior living Do you presently have visiting nurse or other home services: No Alcohol intake: never Patient Tobacco Use Status: Current someday Tobacco user Tobacco use type: Cigarette Cigarette Packs Per Day: 0.5 Cigarettes Per Day: 10.0 Years Smoked: 20 e-Cigarette/Vaping Use: Never Used Second Hand Smoke Exposure: No Substance Use Type: Marijuana service: No Sexual orientation: Straight/Heterosexual Physical Exam Vital Signs: Vital Signs: Last Vital Signs Temp 98.7 F 05/19/23 19:28 Pulse 88 05/19/23 19:28 Resp 16 05/19/23 19:28 BP 105/57 L 05/19/23 19:28 Pulse Ox 95 05/19/23 19:28 O2 Del Method Room Air 05/19/23 19:28 BMI result Body Mass Index 45.4 Appearance: Alert. Oriented X3. No acute distress. she looks more tired than usual and withdrawn Eyes: Pupils equal, round and reactive to light. ENT: Pharynx normal. Neck: Normal inspection. Neck supple. CVS: Normal heart rate and rhythm. Pulses normal. Respiratory: No respiratory distress. Breath sounds normal. Abdomen: Soft and nontender. Skin: Skin warm and dry. Normal skin color. Normal skin turgor. multiple old scars on arms and forehead Extremities: No lower extremity edema. No calf ttp Neuro: Oriented X 3. No motor deficit. No sensory deficit. CN2-12 intact Course Course Course Narrative: RME: 38-year-old female with past medical history of COPD, asthma, anxiety, presenting to the ED complaining of SI w/plan. also reports acute on chronic L knee pain from injury as child, denies recent injury UA, [facility] consult ordered Patient will be brought back into POD Full HPI, ROS and PE to be performed by primary ED provider. Reevaluation(s) Reevaluation #1: Physician observation started at 801pm. Patient placed in physician observation because the patient needed more time to assess the need for psych admission. At the time observation was started the patient's vitals were stable, patient is alert and oriented but slightly anxious, Neuro: nonfocal, CV RRR, Lungs clear Medical Decision Making Medical Decision Making MDM Narrative: 38 yo female with PMH of COPD, schizoaffective disorder, hernia, anxiety, adjustment disorder, GERD, borderline personality disorder here with c/o thoughts of self harm and depression she is asking for IM medications to help her she has a hx of significant self harm attempts will give IM ativan and zyprexa and refer to CARE team. She has no medical complaints. Differential Diagnosis Differential Diagnoses: The differential diagnosis associated with the presentation includes depression, SI Admission/Observation Consideration of admission/observation: Escalation of care including admission/observation considered observe until CARE team involved Consult Healthcare Provider Management of the patient was discussed with: Behavioral Health Provider Lab Data [facility] Lab Attestation statement: I reviewed the patient's lab results. External Record Review External record reviewed: Inpatient record Social Determinants Patient?s care significantly limited by Social Determinants of Health including: Problems related to primary support group Discharge Plan Discharge Clinical Impression: Suicidal ideation Patient Disposition: Still a Patient Prescriptions: No Action haloperidol 5 mg tablet 1 tab PO TID PRN (Reason: Agitation) diphenhydramine HCl [Banophen] 50 mg capsule 2 cap PO BEDTIME hydroxyzine pamoate 50 mg capsule 1 cap PO BID PRN (Reason: Anxiety) zolpidem 10 mg tablet 1 tab PO BEDTIME acetaminophen 500 mg tablet 1 tab PO Q6H PRN (Reason: pain) albuterol sulfate [ProAir HFA] 90 mcg/actuation HFA aerosol inhaler 2 puff inhalation BID PRN (Reason: Wheezing) nicotine (polacrilex) 2 mg Gum 2 mg BUCCAL Q2H PRN (Reason: Smoking Cessation) omeprazole 20 mg Tablet,Delayed Release (Dr/Ec) 20 mg PO DAILY lithium carbonate 300 mg tablet 300 mg PO DAILY@1700 clonidine HCl 0.1 mg tablet 1 tab PO TID benztropine 0.5 mg tablet 1 tab PO BID haloperidol decanoate 100 mg/mL solution 100 mg IM Q4W Rx Instructions: NEXT DOSE: 04/16/23 duloxetine 60 mg capsule,delayed release(DR/EC) 1 cap PO DAILY cetirizine 10 mg tablet 1 tab PO DAILY fluticasone propion-salmeterol [Advair HFA] 230-21 mcg/actuation HFA aerosol inhaler 2 puff INHALATION BID trazodone 100 mg tablet 200 mg PO BEDTIME PRN (Reason: Insomnia) prazosin 1 mg Capsule 3 mg PO BEDTIME 30 Days Qty: 90 0RF Protocol: Hold for SBP< HOLD for SBP < : 90 lorazepam 1 mg tablet 1 mg PO TID PRN (Reason: Anxiety) prazosin 5 mg capsule 15 mg PO BEDTIME Rx Instructions: TAKE WITH 1 MG FOR TOTAL DOSE 16MG PM
[2023-05-19 19:28] VITALS: BP 105/57; PULSE 88; RESP 16; TEMP 37.1; O2SAT 95; BMI 45.4
[2023-05-19 19:55] LABS: Appearance Urine Cloudy; Color Urine Dark Yellow; Glucose Urine UA Negative (Negative); Leukocyte Esterase Urine Trace (Negative); Nitrite Urine Negative (Negative); PH 5.5 (5.0-9.0); Specific Gravity - Urine 1.025 (1.005-1.025); UMIC TRIGGER UA YES; Urine Blood Negative (Negative); Urine Ketones Trace mg/dL (Negative); Urine Protein Trace mg/dL (Neg-Trace)
[2023-05-19 19:57] LABS: UPreg QC Valid YES; Urine Pregnancy NEGATIVE (NEGATIVE)
[2023-05-19] MEDS: LORazepam 2 MG/ML VIAL IM (20:00)
[2023-05-19] MEDS: OLANZapine 10 MG VIAL 5 MG IM (20:00)
[2023-05-19 20:16] LABS: Bacteria Urine 1+ (None Seen); WBC Urine 0-5 /HPF (0-5)
--- NOTE | 2023-05-19 20:26 | PHA.MEDREC ---
Pharmacy Consult ? Medication Reconciliation Pharmacy has reviewed the medication reconciliation completed by nursing. Edie Solorio, JennyferD
[2023-05-19 20:35] LABS: MANUAL DIFF FLAG NO
[2023-05-19 20:40] LABS: Basophils Percent Auto 0.2 % (0-2); Eosinophils Percent Auto 0.4 % (0-4); Hematocrit 31.8 % (37.0-47.0); Hemoglobin 10.6 g/dl (12.0-16.0); Imm Gran Abs Auto 0.03 X10*3/uL (0.00-0.03); Imm Gran Pct Auto 0.3 % (0.0-0.4); Lymphocytes Percent Auto 21.3 % (20-40); Mean Corpuscular HGB Conc 33.3 g/dl (31.0-35.0); Mean Corpuscular Hemoglobin 29.7 pg (27.0-33.0); Mean Corpuscular Volume 89.1 fL (80.0-98.0); Mean Platelet Volume 10.8 fL (9.4-12.3); Monocytes Absolute Auto 0.5 X10*3/uL (0.1-1.2); Monocytes Percent Auto 5.6 % (2-11); Neutrophils Absolute Auto 6.7 x10*3/uL (2.0-8.3); Neutrophils Percent Auto 72.2 % (45-73); Platelet Count 195 X10*3/uL (160-400); Red Blood Count 3.57 X10*6/uL (4.20-5.50); Red Cell Distribution Width 13.4 % (11.0-16.0); White Blood Count 9.2 X10*3/uL (4.8-10.8)
[2023-05-19 20:46] LABS: Lithium 0.23 mmol/L (0.60-1.20)
[2023-05-19 20:54] LABS: Acetaminophen LAB < 17 mcg/mL (<30); Alanine Aminotransferase 8 U/L (0-31); Albumin Level 3.7 g/dL (3.5-5.0); Alkaline Phosphatase 53 U/L (39-117); Anion Gap 12 (12-20); Aspartate Amino Transferase 11 U/L (5-31); Bilirubin Total 0.3 mg/dL (0.0-1.0); Blood Urea Nitrogen 7 mg/dL (9-16); Calcium 8.6 mg/dL (8.4-10.2); Carbon Dioxide 21 mmol/L (22-29); Chloride 107 mmol/L (96-108); Creatinine Clr Calc Pharmacy 112.7; Estimated Glomerular Filt Rate > 60; Ethanol < 10 mg/dL; Glucose Random 133 mg/dL (60-115); Potassium 3.4 mmol/L (3.3-5.1); Salicylate < 5.0 mg/dL (15-30); Sodium 137 mmol/L (135-145); Total Protein 6.2 g/dL (6.5-8.0)
[2023-05-19 22:31] LABS: Amphetamine Screen Urine Not Detected (Not Detect); Barbiturates, Urine Not Detected (Not Detect); Benzodiazepines Screen Urine Not Detected (Not Detect); Cannabinoid Screen Urine POSITIVE (Not Detect); Cocaine Screen Urine Not Detected (Not Detect); Fentanyl, urine Not Detected (Not Detect); Opiate Screen Urine Not Detected (Not Detect); Phencyclidine Screen Urine Not Detected (Not Detect)
--- NOTE | 2023-05-20 04:39 | PC.NURSE ---
Patient slept through the night, no distress observed/reported, Olanzapine 5 mg IM and Ativan 2 mg Im administered at 2000 per patient's request with + request, labs completed/resulted, care consult ordered/pending Evaluation, VSS, med rec completed/pending provider's approval, behavior non concerning, will continue to monitor
--- NOTE | 2023-05-20 07:26 | PC.NURSE ---
patient appears to remain asleep at present respirations are even and unlabored patient appears in no distress
== END 2023-05-20 09:17 | disposition home or self-care (01) ==
PROVIDERS: Emergency Provider Emergency Medicine; PCP Pediatrics
DX: F33.1 Major depressive disorder, recurrent, moderate (principal); R45.851 Suicidal ideations; F41.9 Anxiety disorder, unspecified; Z79.899 Other long term (current) drug therapy
CPT/HCPCS: 36415; 80053; 80143; 80178; 80179; 80307; 81001; 81025; 85025; 99284; J2060; S9485

== ENCOUNTER 2023-06-07 05:54 | Day surgery (SDC) | payer OTHER, SELFPAY ==
[2023-06-07] VITALS (7 sets, daily range): BP systolic 109–158; BP diastolic 54–107; PULSE 97–115; RESP 14–20; TEMP 36.3–37.2; O2SAT 93–99; BMI 45.4
--- NOTE | 2023-06-07 06:45 | P.CONAN_ITS ---
[facility] Active Problems Active Problems: All Active Problems (Updated 05/21/23 @ 00:00 by Adiel Sevilla) Intentional self-harm (Acute) COPD (chronic obstructive pulmonary disease) (Acute) Asthma (Acute) Adjustment disorder (Acute) Anxiety (Acute) Injury of ligament of right knee (Acute) Sprain of anterior cruciate ligament of right knee (Acute) Hernia (Chronic) Schizoaffective disorder, depressive type (Chronic) Chronic post-traumatic stress disorder (PTSD) (Chronic) Increased BMI (Acute) GERD (gastroesophageal reflux disease) (Acute) Borderline personality disorder (Chronic) Past Medical History Medical History History of electroconvulsive therapy COVID-19 COVID-19 Sprain of left foot Chronic post-traumatic stress disorder (PTSD) COPD (chronic obstructive pulmonary disease) Increased BMI GERD (gastroesophageal reflux disease) Recurrent major depression-severe Acute post-traumatic stress disorder Injury, self-inflicted Suicidal ideation Self-harming behavior Intentional self-harm Suicidal ideation Borderline personality disorder Schizoaffective disorder Adjustment disorder Asthma Depression Anxiety PTSD (post-traumatic stress disorder) Family History Family History Mother Brain cancer Other No family history of cardiac disease Family history of problems with anesthesia: No Surgical History History of Problems with Anesthesia: No Social History Social History Household Members: Other Household Members Other:: senior care Housing: Other Housing Other:: senior care Do you presently have visiting nurse or other home services: No Alcohol intake: never Patient Tobacco Use Status: Current someday Tobacco user Tobacco use type: Cigarette Cigarette Packs Per Day: 0.5 Cigarettes Per Day: 10.0 Years Smoked: 20 e-Cigarette/Vaping Use: Never Used Second Hand Smoke Exposure: No Substance Use Type: Marijuana Advance Directives: No Advance Directives Information Provided: Yes service: No Sexual orientation: Straight/Heterosexual Meds Allergies Allergy/AdvReac Type Severity Reaction Status Date / Time carbamazepine [From TEGRETOL] AdvReac Mild Nausea and Verified 03/10/23 10:29 Vomiting topiramate [From Topamax] AdvReac Mild Nausea and Verified 03/10/23 10:29 Vomiting Active Medications: Current Medications Lactated Ringer's (Lr) 1,000 mls @ 50 mls/hr IVCONT .Q20H SULEIMAN Home Medications Medication Instructions Recorded Confirmed Last Taken Type acetaminophen 500 mg tablet 1 tab PO Q6H PRN pain 08/14/22 05/19/23 03/13/23 History albuterol sulfate 90 mcg/actuation 2 puff inhalation BID PRN Wheezing 08/14/22 05/19/23 03/13/23 History aerosol inhaler (ProAir HFA) diphenhydramine HCl 50 mg capsule 2 cap PO BEDTIME 08/14/22 05/19/23 03/24/23 History (Banophen) haloperidol 5 mg tablet 1 tab PO TID PRN Agitation 08/14/22 05/19/23 03/13/23 History hydroxyzine pamoate 50 mg capsule 1 cap PO BID PRN Anxiety 08/14/22 05/19/23 03/13/23 History nicotine (polacrilex) 2 mg gum 2 mg buccal Q2H PRN Smoking 08/14/22 05/19/23 03/13/23 History Cessation omeprazole 20 mg tablet,delayed 20 mg PO DAILY 08/14/22 05/19/23 03/24/23 History release zolpidem 10 mg tablet 1 tab PO BEDTIME 08/14/22 05/19/23 03/24/23 History cetirizine 10 mg tablet 1 tab PO DAILY 10/07/22 05/19/23 03/24/23 History fluticasone propionate 230 2 puff inhalation BID 10/07/22 05/19/23 03/24/23 History mcg-salmeterol 21 mcg/actuation HFA inhaler (Advair HFA) benztropine 0.5 mg tablet 1 tab PO BID 10/26/22 05/19/23 03/24/23 History clonidine HCl 0.1 mg tablet 1 tab PO TID 10/26/22 05/19/23 03/24/23 History duloxetine 60 mg capsule,delayed 1 cap PO DAILY 10/26/22 05/19/23 03/24/23 History release haloperidol decanoate 100 mg/mL 100 mg IM Q4W 10/26/22 05/19/23 03/19/23 History intramuscular solution lithium carbonate 300 mg tablet 300 mg PO DAILY@1700 10/26/22 05/19/23 03/24/23 History trazodone 100 mg tablet 200 mg PO BEDTIME PRN Insomnia 12/25/22 05/19/23 03/24/23 History lorazepam 1 mg tablet 1 mg PO TID PRN Anxiety 03/25/23 05/19/23 Unknown History prazosin 5 mg capsule 15 mg PO BEDTIME 03/25/23 05/19/23 03/24/23 History doxycycline hyclate 100 mg tablet 100 mg PO BID 05/19/23 05/19/23 Unknown History umeclidinium 62.5 mcg/actuation 1 inh inhalation DAILY 05/19/23 05/19/23 Unknown History blister powder for inhalation (Incruse Ellipta) Exam Exam Date and Time: June 07, 2023 0645 Height,Weight and Vital Signs: Height 4 ft 11 in Weight 102.058 kg Last Vital Signs Temp 97.3 F 06/07/23 06:23 Pulse 112 H 06/07/23 06:23 Resp 16 06/07/23 06:23 BP 134/76 06/07/23 06:23 Pulse Ox 99 06/07/23 06:23 O2 Del Method Room Air 06/07/23 06:23 Airway Mallampati Class: II TM Dist: >3cm Neck ROM: Full Heart: rrr Lungs: cta Assessment and Plan Assessment Anesthesia Assessment: Anesthesia Plan Discussed and Chart Reviewed Final Anesthetic Review Family History of Problems with Anesthesia: No History of Problems with Anesthesia: No NPO: Yes ASA Class: III Final Preanesthetic Review: No Changes in Pt Med Stat, Meds/Allgs Chart Reviewed and Consent Obtained/Reviewed Patient Risk: Intermediate Procedure Risk: Intermediate Anesthetic Plan Anesthetic Plan: GA Disposition: Standard PACU
--- NOTE | 2023-06-07 07:01 | MHC.SHP ---
Pre-Procedural Eval Section A Date of Service: 06/07/23 The patient is an INPATIENT: No Changes since office visit: No Cold of Flu in the past 2 weeks, No New Medical Problems, No Changes in Medication and No Patient answered all questions The History & Physical has been completed within 30 days and I have reviewed it.: Yes Section B Chief Complaint: depression Allergies: Allergies Allergy/AdvReac Type Severity Reaction Status Date / Time carbamazepine [From TEGRETOL] AdvReac Mild Nausea and Verified 03/10/23 10:29 Vomiting topiramate [From Topamax] AdvReac Mild Nausea and Verified 03/10/23 10:29 Vomiting Plan I have reviewed the history and physical and performed a pertinent physical examination on my patient. No changes have occurred unless specified. Time Spent With Patient Time: Total time managing care of this patient today ____ minutes.
--- NOTE | 2023-06-07 07:16 | HO.ECTPROC ---
ECT Procedure Note Diagnosis/Treatment Date of Service: 06/07/23 Diagnosis: Schizoaffective Disorder Treatment: Maintenance Interval Clinical Notes: The patient reports euthymia, no new stressors, no side effects with the last procedure. ECT done as usual without any complications Time: Total time managing care of this patient today __30__ minutes. ECT Settings Device: THYMATRON DGx Electrode Placement: Bitemporal Program/Pulse Width: 0.25 Energy Percent: 100 Seizure Duration By EEG (in seconds): 19 By Motor Observation (in seconds): 17 Medications Administration General Anesthetic: Etomidate (14) Muscle Relaxant: Succinylcholine (100) Ancillary Medications Analgesics: Torodol - Pre ECT Anti-emetics: Zofran - Pre ECT Airway Management Airway Management: Bag Mask Ventilation Treatment Recommendations No Changes Recommended: No change Pt Tolerated Procedure w/o Issue: Yes
== END 2023-06-07 08:33 | disposition home or self-care (01) ==
PROVIDERS: PCP Pediatrics; Visit Provider Psychiatry & Neurology Psychiatry
PROC: (CPT 90870; principal; 2023-06-07 08:00)
DX: F25.9 Schizoaffective disorder, unspecified (principal); F39 Unspecified mood [affective] disorder; F43.12 Post-traumatic stress disorder, chronic; F60.3 Borderline personality disorder; J44.9 Chronic obstructive pulmonary disease, unspecified; Z79.899 Other long term (current) drug therapy; Z88.8 Allergy status to other drugs, medicaments and biological substances; F17.210 Nicotine dependence, cigarettes, uncomplicated
CPT/HCPCS: 90870; J0330; J1642; J1885; J2405

== ENCOUNTER → 2023-06-07 05:54 | Outpatient (BNV) | payer OTHER, SELFPAY | PROVIDERS: PCP Pediatrics; Visit Provider Psychiatry & Neurology Psychiatry | DX: F33.3 Major depressive disorder, recurrent, severe with psychotic symptoms (principal) | CPT/HCPCS: 90870 ==

== ENCOUNTER 2023-06-14 20:11 | Emergency (ER) | payer OTHER, SELFPAY ==
[2023-06-14 20:16] VITALS: BP 107/83; PULSE 114; RESP 16; TEMP 37.2; O2SAT 98; BMI 48.5
[2023-06-14 21:19] LABS: Appearance Urine Clear; Color Urine Yellow; Glucose Urine UA Negative (Negative); Leukocyte Esterase Urine Negative (Negative); Nitrite Urine Negative (Negative); Specific Gravity - Urine 1.015 (1.005-1.025); Urine Blood Negative (Negative); Urine Ketones Trace mg/dL (Negative); Urine Protein Negative (Neg-Trace)
[2023-06-14 21:20] LABS: UPreg QC Valid YES; Urine Pregnancy NEGATIVE (NEGATIVE)
[2023-06-14 21:26] LABS: Amphetamine Screen Urine Not Detected (Not Detect); Barbiturates, Urine Not Detected (Not Detect); Benzodiazepines Screen Urine Not Detected (Not Detect); Cannabinoid Screen Urine POSITIVE (Not Detect); Cocaine Screen Urine Not Detected (Not Detect); Fentanyl, urine Not Detected (Not Detect); Opiate Screen Urine Not Detected (Not Detect); Phencyclidine Screen Urine Not Detected (Not Detect)
--- NOTE | 2023-06-14 21:55 | ED.PSYCH ---
HPI - Psych General Chief Complaint: Psychiatric Symptoms Stated Complaint: CRISIS SI Time Seen by Provider: 06/14/23 20:17 Source: patient Mode of arrival: EMS Limitations: no limitations History of Present Illness HPI Narrative: Patient comes to the emergency room complaining of suicidal thoughts, increased depression. Patient denies hurting herself or ingesting any medications prior to arrival. Related Data Home Medications Medication Instructions Recorded Confirmed acetaminophen 500 mg tablet 1 tab PO Q6H PRN pain 08/14/22 06/14/23 albuterol sulfate 90 mcg/actuation 2 puff inhalation BID PRN Wheezing 08/14/22 06/14/23 aerosol inhaler (ProAir HFA) diphenhydramine HCl 50 mg capsule 2 cap PO BEDTIME 08/14/22 06/14/23 (Banophen) haloperidol 5 mg tablet 1 tab PO TID PRN Agitation 08/14/22 06/14/23 hydroxyzine pamoate 50 mg capsule 1 cap PO BID PRN Anxiety 08/14/22 06/14/23 nicotine (polacrilex) 2 mg gum 2 mg buccal Q2H PRN Smoking 08/14/22 06/14/23 Cessation omeprazole 20 mg tablet,delayed 20 mg PO DAILY 08/14/22 06/14/23 release zolpidem 10 mg tablet 1 tab PO BEDTIME 08/14/22 06/14/23 cetirizine 10 mg tablet 1 tab PO DAILY 10/07/22 06/14/23 fluticasone propionate 230 2 puff inhalation BID 10/07/22 06/14/23 mcg-salmeterol 21 mcg/actuation HFA inhaler (Advair HFA) benztropine 0.5 mg tablet 1 tab PO BID 10/26/22 06/14/23 clonidine HCl 0.1 mg tablet 1 tab PO TID 10/26/22 06/14/23 duloxetine 60 mg capsule,delayed 1 cap PO DAILY 10/26/22 06/14/23 release haloperidol decanoate 100 mg/mL 100 mg IM Q4W 10/26/22 06/14/23 intramuscular solution lithium carbonate 300 mg tablet 300 mg PO DAILY@1700 10/26/22 06/14/23 trazodone 100 mg tablet 200 mg PO BEDTIME PRN Insomnia 12/25/22 06/14/23 lorazepam 1 mg tablet 1 mg PO TID PRN Anxiety 03/25/23 06/14/23 prazosin 5 mg capsule 15 mg PO BEDTIME 03/25/23 06/14/23 umeclidinium 62.5 mcg/actuation 1 inh inhalation DAILY 05/19/23 06/14/23 blister powder for inhalation (Incruse Ellipta) Previous Rx's Medication Instructions Recorded prazosin 1 mg capsule 3 mg PO BEDTIME 30 days #90 caps 04/05/23 Allergies Allergy/AdvReac Type Severity Reaction Status Date / Time carbamazepine [From TEGRETOL] AdvReac Mild Nausea and Verified 03/10/23 10:29 Vomiting topiramate [From Topamax] AdvReac Mild Nausea and Verified 03/10/23 10:29 Vomiting Review of Systems Review of Systems: Constitutional : No Weight loss, No Fever, No Chills, No Night Sweats, No Fatigue, No Malaise ENT/Mouth : No Hearing loss, No Ear Pain, No Nasal Congestion, No Sinus Pain, No Hoarseness, No sore throat, No Rhinorrhea, No Swallowing Difficulty Eyes: No Eye Pain, No Swelling, No Redness, No Foreign Body, No Discharge, No Vision Changes Cardiovascular : No Chest Pain, No SOB, No Dyspnea on Exertion, No Orthopnea, No Edema, No Palpitations Respiratory : No Cough, No Sputum, No Wheezing, No Smoke Exposure, No Dyspnea Gastrointestinal : No Nausea, No Vomiting, No Diarrhea, No Constipation, No abdominal Pain, No Hematochezia, No Melena Genitourinary : no irregular bleeding, No Dysuria, No Urinary Frequency, No Hematuria, No Urinary Incontinence, No Urgency, No Flank Pain, No Urinary Flow Changes, No Hesitancy Musculoskeletal : No joint pain, No Myalgias, No Joint Swelling Skin : No Skin Lesions, No rash Neuro : No Weakness, No Numbness, No Paresthesias, No Loss of Consciousness, No Dizziness, No Headache Psych : Complaining of anxiety and depression Heme/Lymph: No Bruising, No Bleeding,No Lymphadenopathy Endocrine : No Polyuria, No Polydipsia, No Temperature Intolerance PMFSH Past Medical History Medical History History of electroconvulsive therapy COVID-19 COVID-19 Sprain of left foot Chronic post-traumatic stress disorder (PTSD) COPD (chronic obstructive pulmonary disease) Increased BMI GERD (gastroesophageal reflux disease) Recurrent major depression-severe Acute post-traumatic stress disorder Injury, self-inflicted Suicidal ideation Self-harming behavior Intentional self-harm Suicidal ideation Borderline personality disorder Schizoaffective disorder Adjustment disorder Asthma Depression Anxiety PTSD (post-traumatic stress disorder) Family History Family History Mother Brain cancer Other No family history of cardiac disease Social History Social History Household Members: Other Household Members Other:: penitentiary Housing: Other Housing Other:: penitentiary Do you presently have visiting nurse or other home services: No Alcohol intake: never Patient Tobacco Use Status: Current someday Tobacco user Tobacco use type: Cigarette Cigarette Packs Per Day: 0.5 Cigarettes Per Day: 10.0 Years Smoked: 20 e-Cigarette/Vaping Use: Never Used Second Hand Smoke Exposure: No Substance Use Type: Marijuana Advance Directives: No Advance Directives Information Provided: No service: No Sexual orientation: Straight/Heterosexual Physical Exam Vital Signs: Vital Signs: Last Vital Signs Temp 98.9 F 06/14/23 20:16 Pulse 114 H 06/14/23 20:16 Resp 16 06/14/23 20:16 BP 107/83 06/14/23 20:16 Pulse Ox 98 06/14/23 20:16 O2 Del Method Room Air 06/14/23 20:16 BMI result Body Mass Index 48.5 Const: Other: Appearance: Alert. Oriented X3. No acute distress. Eyes: Pupils equal, round and reactive to light. ENT: Pharynx normal. Neck: Normal inspection. Neck supple. No lymph nodes noted. No crepitus CVS: Normal heart rate and rhythm. Pulses normal. Normal S1 and S2 Respiratory: No respiratory distress. Breath sounds normal. No Wheezing. No rales Abdomen: Soft and nontender. No rigidity. No distention. Skin: Skin warm and dry. Normal skin color. Normal skin turgor. Extremities: No lower extremity edema. No Lacerations. No Rash Neuro: Oriented X 3. No motor deficit. No sensory deficit. Moving all extremities. No slurred speech. CN 2 through 12 grossly intact Psych: calm, cooperative, normal affect Course Course Course Narrative: All patient's labs pending -care team consult pending Medications Administered Discontinued Medications Generic Name Dose Route Start Last Admin Trade Name Freq PRN Reason Stop Dose Admin Lorazepam 2 mg 06/14/23 21:55 06/14/23 22:00 Lorazepam 2 Mg/Ml Vial IM 06/14/23 21:56 2 mg STAT STA Administration Olanzapine 10 mg 06/14/23 21:55 06/14/23 22:00 Olanzapine 10 Mg Vial IM 06/14/23 21:56 10 mg STAT STA Administration Medical Decision Making Medical Decision Making MDM Narrative: -differential diagnosis: Anxiety, depression, SI Differential Diagnosis Differential Diagnoses: The differential diagnosis associated with the presentation includes (Patient will remain under observation until the caretaking determine the patient's disposition) Admission/Observation Consideration of admission/observation: Escalation of care including admission/observation considered Lab Data Labs: Lab Results 06/14/23 Range/Units 21:11 Urine Color Yellow Urine Appearance Clear Urine pH 6.0 (5.0-9.0) Ur Specific [place] 1.015 (1.005-1.025) Urine Protein Negative (Neg-Trace) mg/dL Urine Glucose (UA) Negative (Negative) mg/dL Urine Ketones Trace (Negative) mg/dL Urine Blood Negative (Negative) Urine Nitrite Negative (Negative) Ur Leukocyte Esterase Negative (Negative) Urine Test NEGATIVE (NEGATIVE) Urine Opiates Screen Not Detected (Not Detect) Urine Fentanyl Screen Not Detected (Not Detect) Ur Barbiturates Screen Not Detected (Not Detect) Ur Phencyclidine Scrn Not Detected (Not Detect) Ur Amphetamines Screen Not Detected (Not Detect) U Benzodiazepines Scrn Not Detected (Not Detect) Urine Cocaine Screen Not Detected (Not Detect) U Marijuana (THC) Screen POSITIVE H (Not Detect) Discharge Plan Discharge Clinical Impression: Suicidal ideation Patient Disposition: Still a Patient Prescriptions: No Action haloperidol 5 mg tablet 1 tab PO TID PRN (Reason: Agitation) diphenhydramine HCl [Banophen] 50 mg capsule 2 cap PO BEDTIME hydroxyzine pamoate 50 mg capsule 1 cap PO BID PRN (Reason: Anxiety) zolpidem 10 mg tablet 1 tab PO BEDTIME acetaminophen 500 mg tablet 1 tab PO Q6H PRN (Reason: pain) albuterol sulfate [ProAir HFA] 90 mcg/actuation HFA aerosol inhaler 2 puff inhalation BID PRN (Reason: Wheezing) nicotine (polacrilex) 2 mg Gum 2 mg BUCCAL Q2H PRN (Reason: Smoking Cessation) omeprazole 20 mg Tablet,Delayed Release (Dr/Ec) 20 mg PO DAILY lithium carbonate 300 mg tablet 300 mg PO DAILY@1700 clonidine HCl 0.1 mg tablet 1 tab PO TID benztropine 0.5 mg tablet 1 tab PO BID haloperidol decanoate 100 mg/mL solution 100 mg IM Q4W Rx Instructions: NEXT DOSE: 04/16/23 duloxetine 60 mg capsule,delayed release(DR/EC) 1 cap PO DAILY cetirizine 10 mg tablet 1 tab PO DAILY fluticasone propion-salmeterol [Advair HFA] 230-21 mcg/actuation HFA aerosol inhaler 2 puff INHALATION BID trazodone 100 mg tablet 200 mg PO BEDTIME PRN (Reason: Insomnia) prazosin 1 mg Capsule 3 mg PO BEDTIME 30 Days Qty: 90 0RF Protocol: Hold for SBP< HOLD for SBP < : 90 lorazepam 1 mg tablet 1 mg PO TID PRN (Reason: Anxiety) prazosin 5 mg capsule 15 mg PO BEDTIME Rx Instructions: TAKE WITH 1 MG FOR TOTAL DOSE 16MG PM Incruse Ellipta 62.5 mcg/actuation blister with device 1 inh inhalation DAILY Interventions: [place]-Suicide Risk Severity Scale Last Done: 06/14/23 21:53
[2023-06-14] MEDS: OLANZapine 10 MG VIAL IM (22:00)
[2023-06-14] MEDS: LORazepam 2 MG/ML VIAL IM (22:00)
--- NOTE | 2023-06-14 22:11 | PC.NURSE ---
Patient reported racing thought and not sleeping few nights, requested IM shots provider notified/verbally ordered Ativan 2 mg IM and Olanzapine 10 mg IM/order entered/read back/confirmed/administered as ordered at 2200/pending effect, care consult ordered/pending evaluation, med rec completed/pending provider's approval, blood draw pending, behavior non concerning, will continue to monitor.
[2023-06-14 23:49] LABS: MANUAL DIFF FLAG NO
[2023-06-14 23:50] LABS: Basophils Percent Auto 0.3 % (0-2); Eosinophils Percent Auto 0.1 % (0-4); Hematocrit 37.1 % (37.0-47.0); Hemoglobin 12.7 g/dl (12.0-16.0); Imm Gran Abs Auto 0.03 X10*3/uL (0.00-0.03); Imm Gran Pct Auto 0.3 % (0.0-0.4); Lymphocytes Absolute Auto 1.9 X10*3/uL (1.2-4.9); Lymphocytes Percent Auto 18.4 % (20-40); Mean Corpuscular HGB Conc 34.2 g/dl (31.0-35.0); Mean Corpuscular Hemoglobin 29.8 pg (27.0-33.0); Mean Corpuscular Volume 87.1 fL (80.0-98.0); Mean Platelet Volume 10.9 fL (9.4-12.3); Monocytes Absolute Auto 0.7 X10*3/uL (0.1-1.2); Monocytes Percent Auto 6.7 % (2-11); Neutrophils Absolute Auto 7.5 x10*3/uL (2.0-8.3); Neutrophils Percent Auto 74.2 % (45-73); Platelet Count 243 X10*3/uL (160-400); Red Blood Count 4.26 X10*6/uL (4.20-5.50); Red Cell Distribution Width 13.2 % (11.0-16.0); White Blood Count 10.1 X10*3/uL (4.8-10.8)
[2023-06-15 00:01] LABS: Lithium 0.16 mmol/L (0.60-1.20)
[2023-06-15 00:10] LABS: Alanine Aminotransferase 10 U/L (0-31); Albumin Level 4.1 g/dL (3.5-5.0); Alkaline Phosphatase 59 U/L (39-117); Anion Gap 16 (12-20); Aspartate Amino Transferase 11 U/L (5-31); Bilirubin Total 0.3 mg/dL (0.0-1.0); Blood Urea Nitrogen 8 mg/dL (9-16); Calcium 9.8 mg/dL (8.4-10.2); Carbon Dioxide 21 mmol/L (22-29); Chloride 107 mmol/L (96-108); Creatinine Clr Calc Pharmacy 106.8; Estimated Glomerular Filt Rate > 60; Ethanol < 10 mg/dL; Glucose Random 106 mg/dL (60-115); Potassium 3.7 mmol/L (3.3-5.1); Sodium 140 mmol/L (135-145); Total Protein 7.1 g/dL (6.5-8.0)
--- NOTE | 2023-06-15 06:11 | PC.NURSE ---
Patient slept through the night, med rec completed/pending provider's approval, no behavior concern at this time, patient is on 1:1 for safety, labs completed/resulted, vss, will continue to monitor.
--- NOTE | 2023-06-15 07:12 | PC.NURSE ---
Resumed care of patient. 1:1 currently maintained. night nurse reporting she had a good night with minimal behaviors noted. Awaiting care team eval at this time
--- NOTE | 2023-06-15 09:52 | PC.NURSE ---
Care team went in and talked with patient, decision was made to d/c back to senior living with safety plan in place, pt in agreement. D/c in, boby zepeda booked for patient
== END 2023-06-15 09:54 | disposition home or self-care (01) ==
PROVIDERS: Emergency Provider Emergency Medicine; PCP Pediatrics
DX: F33.1 Major depressive disorder, recurrent, moderate (principal); R45.851 Suicidal ideations; Z79.899 Other long term (current) drug therapy; F17.210 Nicotine dependence, cigarettes, uncomplicated; Z71.6 Tobacco abuse counseling
CPT/HCPCS: 36415; 80053; 80178; 80307; 81003; 81025; 85025; 96372; 99284; 99285; J2060; J2359; S9485

== ENCOUNTER 2023-06-16 17:47 | Emergency (ER) | payer OTHER, SELFPAY ==
[2023-06-16 17:56] VITALS: BP 138/76; PULSE 102; O2SAT 98
[2023-06-16] MEDS: diphenhydrAMINE HCL 50 MG/ML VIAL IM (18:21)
[2023-06-16] MEDS: Haloperidol Lactate 5 MG/ML VIAL IM (18:21)
[2023-06-16] MEDS: LORazepam 2 MG/ML VIAL IM (18:22)
[2023-06-16 18:26] VITALS: BMI 40.7
--- NOTE | 2023-06-16 18:27 | PC.NURSE ---
Pt arrived via EMS. she is uncooperative, verbally inappropriate, not following directions. pt not happy that her preferred staff editor is not on tonight. pt then changed into hospital attire, went to room and tucked herself under the blanket. pt was hitting herself in the [place] and was told she could not cover her head with blanket. she then started hitting head against the wall, giving herself a wound to forehead. PA and security at bedside, orders for IM medications, wound care applied to injury site on forehead.
--- NOTE | 2023-06-16 18:42 | PC.NURSE ---
Pt hitting head on the wall once again. pt stopped self harming with verbal cues. security and staff in room, informed pt that if she does this again she will be restrained.
[2023-06-16 18:45] VITALS: BP 139/77; PULSE 101; RESP 18; TEMP 36.6; O2SAT 99
[2023-06-16 18:57] LABS: Appearance Urine Cloudy; Color Urine Yellow; Glucose Urine UA Negative (Negative); Leukocyte Esterase Urine Negative (Negative); Nitrite Urine Negative (Negative); Urine Blood Negative (Negative); Urine Ketones Negative (Negative); Urine Protein Negative (Neg-Trace)
[2023-06-16 18:58] LABS: UPreg QC Valid YES; Urine Pregnancy NEGATIVE (NEGATIVE)
--- NOTE | 2023-06-16 19:04 | ED_ITS ---
HPI - General Adult General Chief complaint: Behavioral Concerns Stated complaint: SI W/ PLAN, SECT. 12 Time Seen by Provider: 06/16/23 18:15 Source: patient, RN notes reviewed and old records reviewed Mode of arrival: ambulatory Limitations: other History of Present Illness HPI narrative: 38-year-old female with past medical history significant for asthma, COPD, adjustment disorder, depression, schizoaffective disorder, PTSD presents for evaluation suicidal ideation Patient presents from her residential after she was running down the street with a knife. She use stating ?I just do not care anymore, I want to . ? I was asked to evaluate the patient quickly, as as soon as she got back to her room after being processed by the security staff, she began striking her forehead against the wall. Apparently this is a common behavior for her. At this point, she was unable to be redirected, so she was medicated with Benadryl, Haldol, Ativan to prevent the self-harm behavior Related Data Home Medications Medication Instructions Recorded Confirmed acetaminophen 500 mg tablet 1 tab PO Q6H PRN pain 08/14/22 06/17/23 albuterol sulfate 90 mcg/actuation 2 puff inhalation Q6H PRN Wheezing 08/14/22 06/17/23 aerosol inhaler (ProAir HFA) diphenhydramine HCl 50 mg capsule 2 cap PO BEDTIME 08/14/22 06/17/23 (Banophen) haloperidol 5 mg tablet 1 tab PO TID PRN Agitation 08/14/22 06/17/23 hydroxyzine pamoate 50 mg capsule 1 cap PO TID PRN Anxiety 08/14/22 06/17/23 omeprazole 20 mg tablet,delayed 20 mg PO DAILY@0630 08/14/22 06/17/23 release zolpidem 10 mg tablet 1 tab PO BEDTIME 08/14/22 06/17/23 fluticasone propionate 230 2 puff inhalation BID 10/07/22 06/17/23 mcg-salmeterol 21 mcg/actuation HFA inhaler (Advair HFA) benztropine 0.5 mg tablet 1 tab PO BID 10/26/22 06/17/23 clonidine HCl 0.1 mg tablet 1 tab PO TID 10/26/22 06/17/23 duloxetine 60 mg capsule,delayed 1 cap PO DAILY 10/26/22 06/17/23 release haloperidol decanoate 100 mg/mL 75 mg IM Q4W 10/26/22 06/17/23 intramuscular solution lithium carbonate 300 mg tablet 300 mg PO DAILY 10/26/22 06/17/23 lorazepam 1 mg tablet 1 mg PO TID PRN Anxiety 03/25/23 06/17/23 prazosin 5 mg capsule 15 mg PO BEDTIME 03/25/23 06/17/23 fluticasone propionate 50 2 spray intranasal DAILY 06/17/23 06/17/23 mcg/actuation nasal spray,suspension prazosin 1 mg capsule 1 mg PO BEDTIME 06/17/23 06/17/23 trazodone 100 mg tablet 200 mg PO BEDTIME 06/17/23 06/17/23 Allergies Allergy/AdvReac Type Severity Reaction Status Date / Time carbamazepine [From TEGRETOL] AdvReac Mild Nausea and Verified 03/10/23 10:29 Vomiting topiramate [From Topamax] AdvReac Mild Nausea and Verified 03/10/23 10:29 Vomiting Review of Systems 2 Cardiovascular: Cardiovascular: Denies chest pain Gastrointestinal: Gastrointestinal: Denies abdominal pain and Denies vomiting Musculoskeletal: Musculoskeletal: Denies back pain Psychiatric: Psychiatric: Reports suicidal ideation PMFSH Past Medical History Medical History History of electroconvulsive therapy COVID-19 COVID-19 Sprain of left foot Chronic post-traumatic stress disorder (PTSD) COPD (chronic obstructive pulmonary disease) Increased BMI GERD (gastroesophageal reflux disease) Recurrent major depression-severe Acute post-traumatic stress disorder Injury, self-inflicted Suicidal ideation Self-harming behavior Intentional self-harm Suicidal ideation Borderline personality disorder Schizoaffective disorder Adjustment disorder Asthma Depression Anxiety PTSD (post-traumatic stress disorder) Family History Family History Mother Brain cancer Other No family history of cardiac disease Social History Social History Household Members: Other Household Members Other:: residential Housing: Other Housing Other:: residential Do you presently have visiting nurse or other home services: No Unable to assess alcohol history related to: Unknown Alcohol intake: never Patient Tobacco Use Status: Current someday Tobacco user Tobacco use type: Cigarette Cigarette Packs Per Day: 0.5 Cigarettes Per Day: 10.0 Years Smoked: 20 e-Cigarette/Vaping Use: Never Used Second Hand Smoke Exposure: No Substance Use Type: Marijuana service: No Sexual orientation: Straight/Heterosexual Physical Exam ED Vital Signs: Vital Signs - 24 hr 06/16/23 18:45 06/17/23 13:45 Temperature 98 F 97.8 F Pulse Rate 101 H 103 H Respiratory Rate 18 16 Blood Pressure 139/77 132/88 Pulse Oximetry 99 95 Oxygen Delivery Method Room Air Room Air BMI result Body Mass Index 40.7 Const General: healthy appearing, comfortable, no acute distress, alert and awake Nutritional Appearance: well nourished Orientation/consciousness: patient oriented x3 Eyes Eyelids: Yes eyelids normal Conjunctivae: conjunctivae normal Sclerae: sclerae normal Corneas: corneas normal Pupils: Equal, round and reactive pupils present EOM: EOMs intact bilaterally Neck Neck: Yes full ROM Resp Effort & Inspection: normal respiratory effort, able to speak in complete sentences and not labored Skin Other: Small, partial-thickness, 1.5 cm linear laceration in the center of the forehead. Minimal bleeding General skin exam: elasticity normal Neuro General: patient oriented x3 Cranial nerves: Yes Equal, round and reactive pupils present and Yes Bilaterally intact EOM present Cognition (Neuro): normal cognition Extrem Other: Moving all extremities well without any obvious deformities Course Course Course Narrative: Physician observation continued. VS stable, slept most of the night. inpatient bed search. Reevaluation(s) Reevaluation #1: Patient is seen and evaluated, she was combative with security staff despite attempts to deescalate situation. She continued to try to self-harm. Patient was physically and mechanically restrained Time: 18:30 Reevaluation #2: Patient is medically cleared for care to evaluate Time: 02:09 Reevaluation #3: Physician observation ended at 155pm Patient seen and cleared by CARE team Plan is to follow up outpatient. NAD, lungs clear, CV RRR, Abd nontender, Neuro intact. Disposition is for home. Medications Administered Generic Name Dose Route Start Last Admin Trade Name Freq PRN Reason Stop Dose Admin Benztropine Mesylate 0.5 mg 06/17/23 12:15 06/17/23 12:42 Benztropine Mesylate 0.5 Mg Tablet PO 0.5 mg BID SULEIMAN Administration Duloxetine HCl 60 mg 06/17/23 12:15 06/17/23 12:42 Duloxetine Hcl 60 Mg Capsule. PO 60 mg DAILY SULEIMAN Administration Fluticasone Propionate 2 spray 06/17/23 12:15 06/17/23 12:51 Fluticasone Propionate Nasal [address] NOSTRIL-B Not Given DAILY SULEIMAN Hydroxyzine HCl 50 mg 06/17/23 12:10 06/17/23 13:19 Hydroxyzine Hcl 50 Mg Tablet PO 50 mg TID PRN Administration Anxiety [place] Carbonate 300 mg 06/17/23 12:15 06/17/23 12:42 [place] Carbonate 300 Mg Capsule PO 300 mg DAILY SULEIMAN Administration Lorazepam 1 mg 06/17/23 12:10 06/17/23 12:42 Lorazepam 1 Mg Tablet PO 1 mg TID PRN Administration Anxiety Omeprazole 20 mg 06/17/23 12:15 06/17/23 12:42 Omeprazole 20 Mg Capsule. PO 20 mg DAILY@0630 SULEIMAN Administration Discontinued Medications Generic Name Dose Route Start Last Admin Trade Name Freq PRN Reason Stop Dose Admin Diphenhydramine HCl 50 mg 06/16/23 18:18 06/16/23 18:21 Diphenhydramine Hcl 50 Mg/Ml Vial IM 06/16/23 18:19 50 mg ONCE ONE Administration Haloperidol Lactate 5 mg 06/16/23 18:18 06/16/23 18:21 Haloperidol Lactate 5 Mg/Ml Vial IM 06/16/23 18:19 5 mg STAT STA Administration Lorazepam 2 mg 06/16/23 18:18 06/16/23 18:22 Lorazepam 2 Mg/Ml Vial IM 06/16/23 18:19 2 mg STAT STA Administration Medical Decision Making Medical Decision Making [facility] Narrative: 38-year-old female who is well known to this caption writer department for similar presentations presents for evaluation of suicidal ideation and is exhibiting self-harm behavior. She will require care to evaluation once medically cleared. Differential Diagnosis Differential Diagnoses: The differential diagnosis associated with the presentation includes suicidal ideation Depression Bipolar disorder PTSD Schizoaffective disorder Lab Data [facility] Lab Attestation statement: I reviewed the patient's lab results. No leukocytosis, a very mild anemia with a normal hemoglobin but a hematocrit of 36.4. Normal platelet count. No significant electrolyte abnormalities. Normal renal function. Drug screen positive for marijuana. UA negative for infection 06/16/23 23:44 06/16/23 23:44 Labs: Lab Results 06/16/23 06/16/23 06/16/23 Range/Units 18:47 18:48 23:44 WBC 9.5 (4.8-10.8) X10*3/uL RBC 4.10 L (4.20-5.50) X10*6/uL Hgb 12.2 (12.0-16.0) g/dl Hct 36.4 L (37.0-47.0) % MCV 88.8 (80.0-98.0) fL MCH 29.8 (27.0-33.0) pg MCHC 33.5 (31.0-35.0) g/dl RDW 13.4 (11.0-16.0) % Plt Count 241 (160-400) X10*3/uL MPV 10.8 (9.4-12.3) fL Immature Gran % (Auto) 0.3 (0.0-0.4) % Neut % (Auto) 68.9 (45-73) % Lymph % (Auto) 23.7 (20-40) % [place] % (Auto) 6.7 (2-11) % Eos % (Auto) 0.2 (0-4) % Baso % (Auto) 0.2 (0-2) % Lymph # (Auto) 2.3 (1.2-4.9) X10*3/uL [place] # (Auto) 0.6 (0.1-1.2) X10*3/uL Eos # (Auto) 0.0 (0.0-0.4) X10*3/uL Baso # (Auto) 0.0 (0.0-0.2) X10*3/uL Abs Immat Gran (auto) 0.03 (0.00-0.03) X10*3/uL Absolute Neuts (auto) 6.6 (2.0-8.3) x10*3/uL Absolute Nucleated RBC 0.000 (0.0-0.012) X10*3/uL Nucleated RBC % (auto) 0.0 (0.0-0.2) /100WBC Sodium 141 (135-145) mmol/L Potassium 3.5 (3.3-5.1) mmol/L Chloride 110 H (96-108) mmol/L Carbon Dioxide 23 (22-29) mmol/L Anion Gap 12 (12-20) BUN 7 L (9-16) mg/dL Creatinine 0.71 (0.5-1.4) mg/dL Estim Creat Clear Calc 125.3 Estimated GFR > 60 Random Glucose 117 H (60-115) mg/dL Calcium 9.2 D (8.4-10.2) mg/dL Total Bilirubin 0.2 (0.0-1.0) mg/dL AST 11 (5-31) U/L ALT 9 (0-31) U/L Alkaline Phosphatase 58 (39-117) U/L Total Protein 6.7 (6.5-8.0) g/dL Albumin 3.9 (3.5-5.0) g/dL Urine Color Yellow Urine Appearance Cloudy Urine pH 6.0 (5.0-9.0) Ur Specific [place] 1.010 (1.005-1.025) Urine Protein Negative (Neg-Trace) mg/dL Urine Glucose (UA) Negative (Negative) mg/dL Urine Ketones Negative (Negative) mg/dL Urine Blood Negative (Negative) Urine Nitrite Negative (Negative) Ur Leukocyte Esterase Negative (Negative) Urine Test NEGATIVE (NEGATIVE) Salicylates < 5.0 L (15-30) mg/dL Urine Opiates Screen Not Detected (Not Detect) Urine Fentanyl Screen Not Detected (Not Detect) Acetaminophen < 17 (<30) mcg/mL Ur Barbiturates Screen Not Detected (Not Detect) Ur Phencyclidine Scrn Not Detected (Not Detect) Ur Amphetamines Screen Not Detected (Not Detect) U Benzodiazepines Scrn Not Detected (Not Detect) Urine Cocaine Screen Not Detected (Not Detect) U Marijuana (THC) Screen POSITIVE H (Not Detect) Ethyl Alcohol < 10 mg/dL COVID-19 (RAFAL) Negative (Negative) COVID-19 Clin Com See Note Discharge Plan Discharge Clinical Impression: Suicidal ideation Patient Disposition: Home, Self-Care Instructions: Suicide Prevention (ED) Additional Instructions: please follow up with your outpatient mental health providers. we are here for you if things worsen or if you have thoughts of self harm. Prescriptions: No Action haloperidol 5 mg tablet 1 tab PO TID PRN (Reason: Agitation) diphenhydramine HCl [Banophen] 50 mg capsule 2 cap PO BEDTIME hydroxyzine pamoate 50 mg capsule 1 cap PO TID PRN (Reason: Anxiety) zolpidem 10 mg tablet 1 tab PO BEDTIME acetaminophen 500 mg tablet 1 tab PO Q6H PRN (Reason: pain) albuterol sulfate [ProAir HFA] 90 mcg/actuation HFA aerosol inhaler 2 puff inhalation Q6H PRN (Reason: Wheezing) omeprazole 20 mg Tablet,Delayed Release (Dr/Ec) 20 mg PO DAILY@0630 lithium carbonate 300 mg tablet 300 mg PO DAILY clonidine HCl 0.1 mg tablet 1 tab PO TID benztropine 0.5 mg tablet 1 tab PO BID haloperidol decanoate 100 mg/mL solution 75 mg IM Q4W Rx Instructions: NEXT DOSE: 07/09/23 duloxetine 60 mg capsule,delayed release(DR/EC) 1 cap PO DAILY fluticasone propion-salmeterol [Advair HFA] 230-21 mcg/actuation HFA aerosol inhaler 2 puff INHALATION BID prazosin 1 mg capsule 1 mg PO BEDTIME Protocol: Hold for SBP< HOLD for SBP < : 90 fluticasone propionate 50 mcg/actuation spray,suspension 2 spray intranasal DAILY trazodone 100 mg tablet 200 mg PO BEDTIME lorazepam 1 mg tablet 1 mg PO TID PRN (Reason: Anxiety) prazosin 5 mg capsule 15 mg PO BEDTIME Rx Instructions: TAKE WITH 1 MG FOR TOTAL DOSE 16MG PM
[2023-06-16 19:05] LABS: Amphetamine Screen Urine Not Detected (Not Detect); Barbiturates, Urine Not Detected (Not Detect); Benzodiazepines Screen Urine Not Detected (Not Detect); Cannabinoid Screen Urine POSITIVE (Not Detect); Cocaine Screen Urine Not Detected (Not Detect); Fentanyl, urine Not Detected (Not Detect); Opiate Screen Urine Not Detected (Not Detect); Phencyclidine Screen Urine Not Detected (Not Detect)
--- NOTE | 2023-06-16 20:55 | MHC.EDTECH ---
This PCT attempted to draw patients blood and patient asked if I may draw her labs later on. Patient is resting with PCT at bedside
[2023-06-16 23:50] LABS: MANUAL DIFF FLAG NO
[2023-06-16 23:52] LABS: Basophils Percent Auto 0.2 % (0-2); Eosinophils Percent Auto 0.2 % (0-4); Hematocrit 36.4 % (37.0-47.0); Hemoglobin 12.2 g/dl (12.0-16.0); Imm Gran Abs Auto 0.03 X10*3/uL (0.00-0.03); Imm Gran Pct Auto 0.3 % (0.0-0.4); Lymphocytes Absolute Auto 2.3 X10*3/uL (1.2-4.9); Lymphocytes Percent Auto 23.7 % (20-40); Mean Corpuscular HGB Conc 33.5 g/dl (31.0-35.0); Mean Corpuscular Hemoglobin 29.8 pg (27.0-33.0); Mean Corpuscular Volume 88.8 fL (80.0-98.0); Mean Platelet Volume 10.8 fL (9.4-12.3); Monocytes Absolute Auto 0.6 X10*3/uL (0.1-1.2); Monocytes Percent Auto 6.7 % (2-11); Neutrophils Absolute Auto 6.6 x10*3/uL (2.0-8.3); Neutrophils Percent Auto 68.9 % (45-73); Platelet Count 241 X10*3/uL (160-400); Red Cell Distribution Width 13.4 % (11.0-16.0); White Blood Count 9.5 X10*3/uL (4.8-10.8)
[2023-06-17 00:04] LABS: COVID-19 Test Negative (Negative); IDNOW Serial# 08D9AD1C
[2023-06-17 00:09] LABS: Acetaminophen LAB < 17 mcg/mL (<30); Alanine Aminotransferase 9 U/L (0-31); Albumin Level 3.9 g/dL (3.5-5.0); Alkaline Phosphatase 58 U/L (39-117); Anion Gap 12 (12-20); Aspartate Amino Transferase 11 U/L (5-31); Bilirubin Total 0.2 mg/dL (0.0-1.0); Blood Urea Nitrogen 7 mg/dL (9-16); Calcium 9.2 mg/dL (8.4-10.2); Carbon Dioxide 23 mmol/L (22-29); Chloride 110 mmol/L (96-108); Creatinine Clr Calc Pharmacy 125.3; Estimated Glomerular Filt Rate > 60; Ethanol < 10 mg/dL; Glucose Random 117 mg/dL (60-115); Potassium 3.5 mmol/L (3.3-5.1); Salicylate < 5.0 mg/dL (15-30); Sodium 141 mmol/L (135-145); Total Protein 6.7 g/dL (6.5-8.0)
--- NOTE | 2023-06-17 00:26 | PC.NURSE ---
Pt asleep at the bedside. No apparent distress noted. Breaths are even regular and unlabored with equal chest rises. 1:1 sitter at bedside.
--- NOTE | 2023-06-17 09:21 | PHA.MEDREC ---
Pharmacy Consult ? Medication Reconciliation Pharmacy has completed the medication reconciliation. Med rec done using list provided by [facility].
[2023-06-17] MEDS: Omeprazole 20 MG CAPSULE.DR PO (12:42)
[2023-06-17] MEDS: Benztropine Mesylate 0.5 MG TABLET PO (12:42)
[2023-06-17] MEDS: LORazepam 1 MG TABLET PO (12:42)
[2023-06-17] MEDS: DULoxetine HCl 60 MG CAPSULE.DR PO (12:42)
[2023-06-17] MEDS: Lithium Carbonate 300 MG CAPSULE PO (12:42)
[2023-06-17] MEDS: hydrOXYzine HCL 50 MG TABLET PO (13:19)
[2023-06-17 13:45] VITALS: BP 132/88; PULSE 103; RESP 16; TEMP 36.6; O2SAT 95
--- NOTE | 2023-06-17 14:09 | MHC.CARE ---
Patient re-evaluated by the CARE Team, disposition changed to discharge to current providers, staff will pick her up at 1545. ED provider Dr. Gonzales updated. See Patient Care for details.
[2023-06-17 14:15] VITALS: RESP 18
--- NOTE | 2023-06-17 14:44 | PC.NURSE ---
Stella was in bed resting for most of the shift. Tearful when engaged Stella denies SI/HI/AVH but reports she is feeling sad . Stella denies wanting to hurt herself currently and reports if allowed to go home she can remain safe. Medication adherent. 1:1 for safety while on the POD without incident. No behavioral concerns.
== END 2023-06-17 14:46 | disposition home or self-care (01) ==
PROVIDERS: Physician Assistant; Emergency Provider Student in an Organized Health Care Education/Training Program
DX: R45.851 Suicidal ideations (principal); S01.81XA Laceration without foreign body of other part of head, initial encounter; X83.8XXA Intentional self-harm by other specified means, initial encounter; Z78.1 Physical restraint status; F25.1 Schizoaffective disorder, depressive type; F43.20 Adjustment disorder, unspecified; F41.9 Anxiety disorder, unspecified; F60.3 Borderline personality disorder; F43.12 Post-traumatic stress disorder, chronic; F33.2 Major depressive disorder, recurrent severe without psychotic features; Z91.52 Personal history of nonsuicidal self-harm; Z79.899 Other long term (current) drug therapy; F17.210 Nicotine dependence, cigarettes, uncomplicated; F12.90 Cannabis use, unspecified, uncomplicated; Y93.89 Activity, other specified; Y92.238 Other place in hospital as the place of occurrence of the external cause; Y99.9 Unspecified external cause status; Z11.52 Encounter for screening for COVID-19
CPT/HCPCS: 80053; 80143; 80179; 80307; 81003; 81025; 85025; 87635; 96372; 99284; 99285; J1200; J2060; S9485

== ENCOUNTER 2023-06-21 05:52 | Day surgery (SDC) | payer OTHER, SELFPAY ==
[2023-06-21] VITALS (7 sets, daily range): BP systolic 113–158; BP diastolic 67–90; PULSE 53–101; RESP 14–21; TEMP 36.8–37.5; O2SAT 93–98; BMI 42.4
--- NOTE | 2023-06-21 06:53 | HO.ANESPROP2 ---
[facility] Active Problems Active Problems: All Active Problems (Updated 06/18/23 @ 00:00 by Adiel Sevilla) Intentional self-harm (Acute) COPD (chronic obstructive pulmonary disease) (Acute) Asthma (Acute) Adjustment disorder (Acute) Anxiety (Acute) Injury of ligament of right knee (Acute) Sprain of anterior cruciate ligament of right knee (Acute) Hernia (Chronic) Schizoaffective disorder, depressive type (Chronic) Chronic post-traumatic stress disorder (PTSD) (Chronic) Increased BMI (Acute) GERD (gastroesophageal reflux disease) (Acute) Borderline personality disorder (Chronic) Past Medical History Medical History History of electroconvulsive therapy COVID-19 COVID-19 Sprain of left foot Chronic post-traumatic stress disorder (PTSD) COPD (chronic obstructive pulmonary disease) Increased BMI GERD (gastroesophageal reflux disease) Recurrent major depression-severe Acute post-traumatic stress disorder Injury, self-inflicted Suicidal ideation Self-harming behavior Intentional self-harm Suicidal ideation Borderline personality disorder Schizoaffective disorder Adjustment disorder Asthma Depression Anxiety PTSD (post-traumatic stress disorder) Family History Family History Mother Brain cancer Other No family history of cardiac disease Family history of problems with anesthesia: No Surgical History History of Problems with Anesthesia: No Social History Social History Household Members: Other Household Members Other:: [facility] Housing: Other Housing Other:: [facility] Do you presently have visiting nurse or other home services: No Unable to assess alcohol history related to: Unknown Alcohol intake: never Patient Tobacco Use Status: Current someday Tobacco user Tobacco use type: Cigarette Cigarette Packs Per Day: 0.5 Cigarettes Per Day: 10.0 Years Smoked: 20 e-Cigarette/Vaping Use: Never Used Second Hand Smoke Exposure: No Substance Use Type: Marijuana Advance Directives: No Advance Directives Information Provided: Yes service: No Sexual orientation: Straight/Heterosexual Meds Allergies Allergy/AdvReac Type Severity Reaction Status Date / Time carbamazepine [From TEGRETOL] AdvReac Mild Nausea and Verified 03/10/23 10:29 Vomiting topiramate [From Topamax] AdvReac Mild Nausea and Verified 03/10/23 10:29 Vomiting Active Medications: Current Medications Lactated Ringer's (Lr) 1,000 mls @ 50 mls/hr IVCONT .Q20H SULEIMAN Home Medications Medication Instructions Recorded Confirmed Last Taken Type acetaminophen 500 mg tablet 1 tab PO Q6H PRN pain 08/14/22 06/17/23 03/13/23 History albuterol sulfate 90 mcg/actuation 2 puff inhalation Q6H PRN Wheezing 08/14/22 06/17/23 03/13/23 History aerosol inhaler (ProAir HFA) diphenhydramine HCl 50 mg capsule 2 cap PO BEDTIME 08/14/22 06/17/23 03/24/23 History (Banophen) haloperidol 5 mg tablet 1 tab PO TID PRN Agitation 08/14/22 06/17/23 03/13/23 History hydroxyzine pamoate 50 mg capsule 1 cap PO TID PRN Anxiety 08/14/22 06/17/23 03/13/23 History omeprazole 20 mg tablet,delayed 20 mg PO DAILY@0630 08/14/22 06/17/23 03/24/23 History release zolpidem 10 mg tablet 1 tab PO BEDTIME 08/14/22 06/17/23 03/24/23 History fluticasone propionate 230 2 puff inhalation BID 10/07/22 06/17/23 03/24/23 History mcg-salmeterol 21 mcg/actuation HFA inhaler (Advair HFA) benztropine 0.5 mg tablet 1 tab PO BID 10/26/22 06/17/23 03/24/23 History clonidine HCl 0.1 mg tablet 1 tab PO TID 10/26/22 06/17/23 03/24/23 History duloxetine 60 mg capsule,delayed 1 cap PO DAILY 10/26/22 06/17/23 03/24/23 History release haloperidol decanoate 100 mg/mL 75 mg IM Q4W 10/26/22 06/17/23 06/11/23 History intramuscular solution lithium carbonate 300 mg tablet 300 mg PO DAILY 10/26/22 06/17/23 03/24/23 History lorazepam 1 mg tablet 1 mg PO TID PRN Anxiety 03/25/23 06/17/23 Unknown History prazosin 5 mg capsule 15 mg PO BEDTIME 03/25/23 06/17/23 03/24/23 History fluticasone propionate 50 2 spray intranasal DAILY 06/17/23 06/17/23 Unknown History mcg/actuation nasal spray,suspension prazosin 1 mg capsule 1 mg PO BEDTIME 06/17/23 06/17/23 Unknown History trazodone 100 mg tablet 200 mg PO BEDTIME 06/17/23 06/17/23 Unknown History Exam Exam Date and Time: June 21, 2023 0653 Height,Weight and Vital Signs: Height 4 ft 11 in Weight 95.254 kg Last Vital Signs Temp 98.3 F 06/21/23 06:29 Pulse 95 06/21/23 06:29 Resp 14 06/21/23 06:29 BP 137/87 06/21/23 06:29 Pulse Ox 96 06/21/23 06:29 O2 Del Method Room Air 06/21/23 06:29 Airway Mallampati Class: II (missing multiple teeth) TM Dist: >3cm Neck ROM: Full Heart: rrr Lungs: cta Assessment and Plan Assessment Anesthesia Assessment: Anesthesia Plan Discussed and Chart Reviewed Final Anesthetic Review Family History of Problems with Anesthesia: No History of Problems with Anesthesia: No NPO: Yes ASA Class: III Final Preanesthetic Review: No Changes in Pt Med Stat, Meds/Allgs Chart Reviewed and Consent Obtained/Reviewed Patient Risk: Intermediate Procedure Risk: Intermediate Anesthetic Plan Anesthetic Plan: GA Disposition: Standard PACU
--- NOTE | 2023-06-21 07:24 | MHC.SHP ---
Pre-Procedural Eval Section A Date of Service: 06/21/23 The patient is an INPATIENT: No Changes since office visit: No Cold of Flu in the past 2 weeks, No New Medical Problems, No Changes in Medication and No Patient answered all questions The History & Physical has been completed within 30 days and I have reviewed it.: Yes Section B Chief Complaint: depression Details of Present Illness: Hx of depression with psychosis, personality D/O, responds very well to ECT Relevant Family History (Specify if Yes): Yes Relevant Social History: Other (specify) (Chronic mental illness, chronically institutionalized.) Present Medications: see Short Stay Collaborative assessment Medical History: Significant History History of Previous Operations: Relevant previous surgery/procedure and date(s) (ECTs) Allergies: Allergies Allergy/AdvReac Type Severity Reaction Status Date / Time carbamazepine [From TEGRETOL] AdvReac Mild Nausea and Verified 03/10/23 10:29 Vomiting topiramate [From Topamax] AdvReac Mild Nausea and Verified 03/10/23 10:29 Vomiting Review of Systems Sugical H&P ROS: Negative: Constitution, Cardiovascular, Respiratory, Neurological, Psychiatric, Hem-Onc, Allergic/Immunologic, Gastrointestinal, Genitourinary, Musculoskeletal, Integumentary, Endocrine and Eyes/Ears/Nose/Throat Exam Surgical H&P Exam: Normal: HEENT, Normal: Heart, Normal: Lungs, Normal: Extremities, Normal: Abdomen, Normal: Skin and Normal: Neurological Plan Diagnosis/Plan: Unchanged I have reviewed the history and physical and performed a pertinent physical examination on my patient. No changes have occurred unless specified. Time Spent With Patient Time: Total time managing care of this patient today __20__ minutes.
--- NOTE | 2023-06-21 07:38 | HO.ECTPROC ---
ECT Procedure Note Diagnosis/Treatment Date of Service: 06/21/23 Diagnosis: Schizoaffective Disorder Previous ECT Date: 06/07/23 Treatment: Maintenance Interval Clinical Notes: The patient was under stress, she reported that she is going to be moved to a different facility as residence and her sister is not doing well, dysphoric but not new self-harming behavior. No side effects with the previous ECT. Current procedure with an increase on the parameters, 0.5 at 100% same placement bitemperal. No complications, woke up well. Time: Total time managing care of this patient today __30__ minutes. ECT Settings Device: THYMATRON DGx Electrode Placement: Bitemporal Program/Pulse Width: 0.50 Energy Percent: 100 Medications Administration General Anesthetic: Etomidate (14) Muscle Relaxant: Succinylcholine (100) Ancillary Medications Analgesics: Torodol - Pre ECT Anti-emetics: Zofran - Pre ECT Airway Management Airway Management: Bag Mask Ventilation Treatment Recommendations No Changes Recommended: No change Pt Tolerated Procedure w/o Issue: Yes
== END 2023-06-21 09:32 | disposition home or self-care (01) ==
PROVIDERS: Visit Provider Psychiatry & Neurology Psychiatry
PROC: (CPT 90870; principal; 2023-06-21 07:00)
DX: F25.9 Schizoaffective disorder, unspecified (principal); F39 Unspecified mood [affective] disorder; F43.12 Post-traumatic stress disorder, chronic; F60.3 Borderline personality disorder; J44.9 Chronic obstructive pulmonary disease, unspecified; K21.9 Gastro-esophageal reflux disease without esophagitis; J45.909 Unspecified asthma, uncomplicated; Z79.51 Long term (current) use of inhaled steroids; Z79.899 Other long term (current) drug therapy; Z88.8 Allergy status to other drugs, medicaments and biological substances; F17.210 Nicotine dependence, cigarettes, uncomplicated; Z86.16 Personal history of COVID-19
CPT/HCPCS: 90870; J0330; J1642; J1885; J2405

== ENCOUNTER → 2023-06-21 05:52 | Outpatient (BNV) | payer OTHER, SELFPAY | PROVIDERS: Visit Provider Psychiatry & Neurology Psychiatry | DX: F33.3 Major depressive disorder, recurrent, severe with psychotic symptoms (principal) | CPT/HCPCS: 90870 ==

== ENCOUNTER 2023-07-04 18:07 | Emergency (ER) | payer OTHER, SELFPAY ==
--- NOTE | ~2023-07-04 | XR_ITS ---
EXAMINATION: THORACIC SPINE, LUMBAR SPINE CLINICAL INFORMATION: Pain COMPARISON: Chest radiograph and CT abdomen pelvis 10/18/2021 TECHNIQUE: 3 views lumbar spine, 3 views thoracic spine FINDINGS: Thoracic spine: There is a mild biconvex thoracolumbar scoliosis. A left-sided chest port is present with its tip in the SVC. Degenerative changes are present in the spine with endplate changes. Vertebral body heights and disc spaces are well maintained. Lumbar spine: Degenerative changes are seen predominantly at L4-L5 and L5-S1 with some mild disc space narrowing. No fractures or dislocations. No bony destructive lesions. XR/XR lumbar spine 2-3V IMPRESSION: Degenerative changes in the thoracic and lumbar spine as described above. No evidence of an acute injury.
--- NOTE | ~2023-07-04 | XR_ITS ---
EXAMINATION: THORACIC SPINE, LUMBAR SPINE CLINICAL INFORMATION: Pain COMPARISON: Chest radiograph and CT abdomen pelvis 10/18/2021 TECHNIQUE: 3 views lumbar spine, 3 views thoracic spine FINDINGS: Thoracic spine: There is a mild biconvex thoracolumbar scoliosis. A left-sided chest port is present with its tip in the SVC. Degenerative changes are present in the spine with endplate changes. Vertebral body heights and disc spaces are well maintained. Lumbar spine: Degenerative changes are seen predominantly at L4-L5 and L5-S1 with some mild disc space narrowing. No fractures or dislocations. No bony destructive lesions. XR/XR thoracic spine 2V IMPRESSION: Degenerative changes in the thoracic and lumbar spine as described above. No evidence of an acute injury.
[2023-07-04 18:10] VITALS: BP 119/76; BP 131/83; PULSE 106; PULSE 68; RESP 18; TEMP 36.7; O2SAT 98; BMI 45.4
--- NOTE | 2023-07-04 18:35 | ED_ITS ---
HPI - General Adult General Chief complaint: Psychiatric Symptoms Stated complaint: CRISIS SI, BACK PAIN [id number] Time Seen by Provider: 07/04/23 18:18 Source: patient, RN notes reviewed and old records reviewed Mode of arrival: EMS Limitations: no limitations History of Present Illness HPI narrative: 38-year-old female with past medical history significant for schizoaffective disorder, bipolar disorder, COPD, frequent self-harm presents for evaluation of chronic back pain. Patient reports that she has had back pain for several months. Denies any specific injuries or falls. She there is no radiation of her pain. The pain is worse with movement. Denies any numbness or tingling. Denies any bladder or bowel incontinence Patient rates her pain is 8/10. She also complains vague SI without a plan. Related Data Home Medications Medication Instructions Recorded Confirmed acetaminophen 500 mg tablet 1 tab PO Q6H PRN pain 08/14/22 06/17/23 albuterol sulfate 90 mcg/actuation 2 puff inhalation Q6H PRN Wheezing 08/14/22 06/17/23 aerosol inhaler (ProAir HFA) diphenhydramine HCl 50 mg capsule 2 cap PO BEDTIME 08/14/22 06/17/23 (Banophen) haloperidol 5 mg tablet 1 tab PO TID PRN Agitation 08/14/22 06/17/23 hydroxyzine pamoate 50 mg capsule 1 cap PO TID PRN Anxiety 08/14/22 06/17/23 omeprazole 20 mg tablet,delayed 20 mg PO DAILY@0630 08/14/22 06/17/23 release zolpidem 10 mg tablet 1 tab PO BEDTIME 08/14/22 06/17/23 fluticasone propionate 230 2 puff inhalation BID 10/07/22 06/17/23 mcg-salmeterol 21 mcg/actuation HFA inhaler (Advair HFA) benztropine 0.5 mg tablet 1 tab PO BID 10/26/22 06/17/23 clonidine HCl 0.1 mg tablet 1 tab PO TID 10/26/22 06/17/23 duloxetine 60 mg capsule,delayed 1 cap PO DAILY 10/26/22 06/17/23 release haloperidol decanoate 100 mg/mL 75 mg IM Q4W 10/26/22 06/17/23 intramuscular solution lithium carbonate 300 mg tablet 300 mg PO DAILY 10/26/22 06/17/23 lorazepam 1 mg tablet 1 mg PO TID PRN Anxiety 03/25/23 06/17/23 prazosin 5 mg capsule 15 mg PO BEDTIME 03/25/23 06/17/23 fluticasone propionate 50 2 spray intranasal DAILY 06/17/23 06/17/23 mcg/actuation nasal spray,suspension prazosin 1 mg capsule 1 mg PO BEDTIME 06/17/23 06/17/23 trazodone 100 mg tablet 200 mg PO BEDTIME 06/17/23 06/17/23 Allergies Allergy/AdvReac Type Severity Reaction Status Date / Time carbamazepine [From TEGRETOL] AdvReac Mild Nausea and Verified 03/10/23 10:29 Vomiting topiramate [From Topamax] AdvReac Mild Nausea and Verified 03/10/23 10:29 Vomiting Review of Systems Constitutional: Constitutional: Denies chills, Denies fever(s) and Denies frequent falls Eyes: Eyes: Denies blurry vision ENT: Denies sore throat Cardiovascular: Cardiovascular: Denies chest pain and Denies dyspnea Respiratory: Respiratory: Denies cough and Denies dyspnea Gastrointestinal: Gastrointestinal: Denies abdominal pain, Denies nausea and Denies vomiting Musculoskeletal: Musculoskeletal: Reports back pain, Denies muscle weakness, Denies numbness, Denies radiating pain into limb, Reports stiffness and Denies tingling Integumentary/Breasts: Skin/Breast: Denies rash Neurologic: Denies frequent falls, Denies numbness and Denies tingling Psychiatric: Psychiatric: Reports depression, Denies homicidal ideation and Reports suicidal ideation [facility] Past Medical History Medical History History of electroconvulsive therapy COVID-19 COVID-19 Sprain of left foot Chronic post-traumatic stress disorder (PTSD) COPD (chronic obstructive pulmonary disease) Increased BMI GERD (gastroesophageal reflux disease) Recurrent major depression-severe Acute post-traumatic stress disorder Injury, self-inflicted Suicidal ideation Self-harming behavior Intentional self-harm Suicidal ideation Borderline personality disorder Schizoaffective disorder Adjustment disorder Asthma Depression Anxiety PTSD (post-traumatic stress disorder) Family History Family History Mother Brain cancer Other No family history of cardiac disease Social History Social History Household Members: Other Household Members Other:: long term Housing: Other Housing Other:: long term Do you presently have visiting nurse or other home services: No Unable to assess alcohol history related to: Unknown Alcohol intake: never Patient Tobacco Use Status: Current someday Tobacco user Tobacco use type: Cigarette Cigarette Packs Per Day: 0.5 Cigarettes Per Day: 10.0 Years Smoked: 20 e-Cigarette/Vaping Use: Never Used Second Hand Smoke Exposure: No Substance Use Type: Marijuana Advance Directives: No Advance Directives Information Provided: No service: No Sexual orientation: Straight/Heterosexual Physical Exam ED Vital Signs: Vital Signs - 24 hr 07/04/23 18:10 Temperature 98.1 F Pulse Rate 106 H Respiratory Rate 18 Blood Pressure 119/76 Pulse Oximetry 98 Oxygen Delivery Method Room Air BMI result Body Mass Index 45.4 Const General: healthy appearing, comfortable, no acute distress, alert and awake Nutritional Appearance: well nourished Orientation/consciousness: patient oriented x3 HENMT Head: Yes normocephalic and Yes atraumatic Eyes Eyelids: Yes eyelids normal Conjunctivae: conjunctivae normal Sclerae: sclerae normal Corneas: corneas normal Pupils: Equal, round and reactive pupils present EOM: EOMs intact bilaterally Neck Neck: Yes full ROM Resp Effort & Inspection: normal respiratory effort, able to speak in complete sentences and not labored Cardio Rate: regular rate Rhythm: regular rhythm GI Inspection: No distended Palpation (GI): Soft to palpation, not firm, nontender, no guarding and not rigid Back/Spine/Pelvis Other: Patient has vague tenderness to the lumbar spine, lumbar paraspinous region. She is also tender to the lower thoracic spine and lower thoracic paraspinous region. No cervical tenderness. Negative straight leg raise Skin General skin exam: no rashes or lesions noted and elasticity normal Neuro General: patient oriented x3 Cranial nerves: Yes Equal, round and reactive pupils present and Yes Bilaterally intact EOM present Cognition (Neuro): normal cognition Extrem Other: Moving all extremities well without any obvious deformities Course Reevaluation(s) Reevaluation #1: Patient beginning to try to strike her head against the wall. She is feeling anxious. She is willing to accept IM meds. Will give Zyprexa 10 mg IM. This is not a restraint, the patient is requesting this medication. Time: 19:06 Reevaluation #2: Patient requesting discharge this time, she is not suicidal. Her x-ray showed mild arthritis but no evidence of fractures. The patient has been ambulatory throughout her stay. She is stable for discharge at this time. She was encouraged return for any new or worsening symptoms Time: 22:02 Medications Administered Discontinued Medications Generic Name Dose Route Start Last Admin Trade Name Leno PRN Reason Stop Dose Admin Lorazepam 1 mg 07/04/23 18:32 07/04/23 18:39 Lorazepam 1 Mg Tablet PO 07/04/23 18:33 1 mg ONCE ONE Administration Olanzapine 10 mg 07/04/23 19:06 07/04/23 19:10 Olanzapine 10 Mg Vial IM 07/04/23 19:07 10 mg STAT STA Administration Medical Decision Making Medical Decision Making [facility] Narrative: 38-year-old female presents for evaluation of back pain and vague SI. Will check basic labs, drug screen, UA, . Will get x-rays of her lumbar and thoracic back to rule out acute injury although there was no reported trauma so I feel this is less likely. She has no numbness, tingling, weakness, bladder or bowel incontinence. A likely be spinal injury. The patient denies IV drug abuse. Once medically cleared, the patient be referred to the care team Differential Diagnosis Differential Diagnoses: The differential diagnosis associated with the presentation includes Chronic back pain Muscle spasm Compression fracture Vertebral fracture Radiculopathy Depression Suicidal ideation Substance abuse Lab Data Labs: Lab Results 07/04/23 Range/Units 20:00 Urine Color Yellow Urine Appearance Clear Urine pH 5.5 (5.0-9.0) Ur Specific [place] 1.015 (1.005-1.025) Urine Protein Negative (Neg-Trace) mg/dL Urine Glucose (UA) Negative (Negative) mg/dL Urine Ketones Negative (Negative) mg/dL Urine Blood Negative (Negative) Urine Nitrite Negative (Negative) Ur Leukocyte Esterase Negative (Negative) Urine Test NEGATIVE (NEGATIVE) Urine Opiates Screen Not Detected (Not Detect) Urine Fentanyl Screen Not Detected (Not Detect) Ur Barbiturates Screen Not Detected (Not Detect) Ur Phencyclidine Scrn Not Detected (Not Detect) Ur Amphetamines Screen Not Detected (Not Detect) U Benzodiazepines Scrn Not Detected (Not Detect) Urine Cocaine Screen Not Detected (Not Detect) U Marijuana (THC) Screen POSITIVE H (Not Detect) Independent Interpretation I performed an independent interpretation of an: Plain X-Ray (No obvious vertebral fracture) Radiology Impression Discussion of test interpretation with radiology: I have reviewed the radiologist's reading. (Mild degenerative changes of the vertebral spine) Discharge Plan Discharge Clinical Impression: Back pain, Depression Patient Disposition: Home, Self-Care Instructions: Back Pain (ED) Additional Instructions: Your x-ray shows arthritis but no broken bones in your back. You may use Motrin or Tylenol for pain Return to the ER immediately if you have any thoughts of harming yourself or anybody else Follow-up with your primary doctor Prescriptions: No Action haloperidol 5 mg tablet 1 tab PO TID PRN (Reason: Agitation) diphenhydramine HCl [Banophen] 50 mg capsule 2 cap PO BEDTIME hydroxyzine pamoate 50 mg capsule 1 cap PO TID PRN (Reason: Anxiety) zolpidem 10 mg tablet 1 tab PO BEDTIME acetaminophen 500 mg tablet 1 tab PO Q6H PRN (Reason: pain) albuterol sulfate [ProAir HFA] 90 mcg/actuation HFA aerosol inhaler 2 puff inhalation Q6H PRN (Reason: Wheezing) omeprazole 20 mg Tablet,Delayed Release (Dr/Ec) 20 mg PO DAILY@0630 lithium carbonate 300 mg tablet 300 mg PO DAILY clonidine HCl 0.1 mg tablet 1 tab PO TID benztropine 0.5 mg tablet 1 tab PO BID haloperidol decanoate 100 mg/mL solution 75 mg IM Q4W Rx Instructions: NEXT DOSE: 07/09/23 duloxetine 60 mg capsule,delayed release(DR/EC) 1 cap PO DAILY fluticasone propion-salmeterol [Advair HFA] 230-21 mcg/actuation HFA aerosol inhaler 2 puff INHALATION BID prazosin 1 mg capsule 1 mg PO BEDTIME Protocol: Hold for SBP< HOLD for SBP < : 90 fluticasone propionate 50 mcg/actuation spray,suspension 2 spray intranasal DAILY trazodone 100 mg tablet 200 mg PO BEDTIME lorazepam 1 mg tablet 1 mg PO TID PRN (Reason: Anxiety) prazosin 5 mg capsule 15 mg PO BEDTIME Rx Instructions: TAKE WITH 1 MG FOR TOTAL DOSE 16MG PM Interventions: Brooke-Suicide Risk Severity Scale Last Done: 07/04/23 18:43
[2023-07-04] MEDS: LORazepam 1 MG TABLET PO (18:39)
[2023-07-04] MEDS: OLANZapine 10 MG VIAL IM (19:10)
[2023-07-04 20:11] LABS: Appearance Urine Clear; Color Urine Yellow; Glucose Urine UA Negative (Negative); Leukocyte Esterase Urine Negative (Negative); Nitrite Urine Negative (Negative); PH 5.5 (5.0-9.0); Specific Gravity - Urine 1.015 (1.005-1.025); Urine Blood Negative (Negative); Urine Ketones Negative (Negative); Urine Protein Negative (Neg-Trace)
[2023-07-04 20:15] LABS: Amphetamine Screen Urine Not Detected (Not Detect); Barbiturates, Urine Not Detected (Not Detect); Benzodiazepines Screen Urine Not Detected (Not Detect); Cannabinoid Screen Urine POSITIVE (Not Detect); Cocaine Screen Urine Not Detected (Not Detect); Fentanyl, urine Not Detected (Not Detect); Opiate Screen Urine Not Detected (Not Detect); Phencyclidine Screen Urine Not Detected (Not Detect)
[2023-07-04 20:40] LABS: UPreg QC Valid YES; Urine Pregnancy NEGATIVE (NEGATIVE)
--- NOTE | 2023-07-04 22:27 | PC.NURSE ---
pt continues to deny SI/HI at this time this rn gave rn to rn report to juan manuel at [facility] in [place]- juan manuel membreno questioned if pt was SI states pt had been prior to coming to [facility] [place]. this rn informed juan manuel rn that pt has denies SI while in care at [facility]. pt calm and cooperative. tara leo made aware of juan manuel membreno concern. jesús states pt does not meet critera for crisis consult as pt is denying thoughts of self harm and SI/HI. contact number for rn at respite [phone]. battery recharger [facility]
[2023-07-04 22:29] VITALS: PULSE 69; RESP 20; O2SAT 96
--- NOTE | 2023-07-04 23:08 | PC.NURSE ---
architect internship booked lyft ride back to respite facility. pt ambulatory at discharge. provided with discharge packet and belongings. pt verbalized understanding of discharge plan. this rn called respite facility to make aware of pt lyft arrival. parmjit escorted pt to lyft
== END 2023-07-04 23:15 | disposition home or self-care (01) ==
PROVIDERS: Physician Assistant; Emergency Provider Student in an Organized Health Care Education/Training Program; PCP Pediatrics
DX: F25.0 Schizoaffective disorder, bipolar type (principal); R45.851 Suicidal ideations; F33.1 Major depressive disorder, recurrent, moderate; M54.6 Pain in thoracic spine; M54.50 Low back pain, unspecified; F17.210 Nicotine dependence, cigarettes, uncomplicated; Z71.6 Tobacco abuse counseling; Z79.899 Other long term (current) drug therapy
CPT/HCPCS: 72070; 72100; 80307; 81003; 81025; 96372; 99284; J2359

== ENCOUNTER 2023-07-12 06:13 | Day surgery (SDC) | payer OTHER, SELFPAY ==
[2023-07-12] VITALS (7 sets, daily range): BP systolic 115–175; BP diastolic 69–91; PULSE 98–105; RESP 16–18; TEMP 36.6–36.7; O2SAT 94–98; BMI 44.4
--- NOTE | 2023-07-12 06:43 | P.CONAN_ITS ---
[facility] Active Problems Active Problems: All Active Problems (Updated 07/05/23 @ 00:00 by Adiel Sevilla) Intentional self-harm (Acute) COPD (chronic obstructive pulmonary disease) (Acute) Asthma (Acute) Adjustment disorder (Acute) Anxiety (Acute) Injury of ligament of right knee (Acute) Sprain of anterior cruciate ligament of right knee (Acute) Hernia (Chronic) Schizoaffective disorder, depressive type (Chronic) Chronic post-traumatic stress disorder (PTSD) (Chronic) Increased BMI (Acute) GERD (gastroesophageal reflux disease) (Acute) Borderline personality disorder (Chronic) Past Medical History Medical History History of electroconvulsive therapy COVID-19 COVID-19 Sprain of left foot Chronic post-traumatic stress disorder (PTSD) COPD (chronic obstructive pulmonary disease) Increased BMI GERD (gastroesophageal reflux disease) Recurrent major depression-severe Acute post-traumatic stress disorder Injury, self-inflicted Suicidal ideation Self-harming behavior Intentional self-harm Suicidal ideation Borderline personality disorder Schizoaffective disorder Adjustment disorder Asthma Depression Anxiety PTSD (post-traumatic stress disorder) Family History Family History Mother Brain cancer Other No family history of cardiac disease Family history of problems with anesthesia: No Surgical History History of Problems with Anesthesia: No Social History Household Members: Other Household Members Other:: half-way Housing: Other Housing Other:: half-way Do you presently have visiting nurse or other home services: No Unable to assess alcohol history related to: Refusing to respond Alcohol intake: never Patient Tobacco Use Status: Current someday Tobacco user Tobacco use type: Cigarette Cigarette Packs Per Day: 0.5 Cigarettes Per Day: 10.0 Years Smoked: 20 e-Cigarette/Vaping Use: Never Used Second Hand Smoke Exposure: No Substance Use Type: Marijuana Advance Directives: No Advance Directives Information Provided: Yes service: No Sexual orientation: Straight/Heterosexual Meds Allergies Allergy/AdvReac Type Severity Reaction Status Date / Time carbamazepine [From TEGRETOL] AdvReac Mild Nausea and Verified 03/10/23 10:29 Vomiting topiramate [From Topamax] AdvReac Mild Nausea and Verified 03/10/23 10:29 Vomiting Home Medications Medication Instructions Recorded Confirmed Last Taken Type acetaminophen 500 mg tablet 1 tab PO Q6H PRN pain 08/14/22 06/17/23 03/13/23 History albuterol sulfate 90 mcg/actuation 2 puff inhalation Q6H PRN Wheezing 08/14/22 06/17/23 03/13/23 History aerosol inhaler (ProAir HFA) diphenhydramine HCl 50 mg capsule 2 cap PO BEDTIME 08/14/22 06/17/23 03/24/23 History (Banophen) haloperidol 5 mg tablet 1 tab PO TID PRN Agitation 08/14/22 06/17/23 03/13/23 History hydroxyzine pamoate 50 mg capsule 1 cap PO TID PRN Anxiety 08/14/22 06/17/23 03/13/23 History omeprazole 20 mg tablet,delayed 20 mg PO DAILY@0630 08/14/22 06/17/23 03/24/23 History release zolpidem 10 mg tablet 1 tab PO BEDTIME 08/14/22 06/17/23 03/24/23 History fluticasone propionate 230 2 puff inhalation BID 10/07/22 06/17/23 03/24/23 History mcg-salmeterol 21 mcg/actuation HFA inhaler (Advair HFA) benztropine 0.5 mg tablet 1 tab PO BID 10/26/22 06/17/23 03/24/23 History clonidine HCl 0.1 mg tablet 1 tab PO TID 10/26/22 06/17/23 03/24/23 History duloxetine 60 mg capsule,delayed 1 cap PO DAILY 10/26/22 06/17/23 03/24/23 History release haloperidol decanoate 100 mg/mL 75 mg IM Q4W 10/26/22 06/17/23 06/11/23 History intramuscular solution lithium carbonate 300 mg tablet 300 mg PO DAILY 10/26/22 06/17/23 03/24/23 History lorazepam 1 mg tablet 1 mg PO TID PRN Anxiety 03/25/23 06/17/23 Unknown History prazosin 5 mg capsule 15 mg PO BEDTIME 03/25/23 06/17/23 03/24/23 History fluticasone propionate 50 2 spray intranasal DAILY 06/17/23 06/17/23 Unknown History mcg/actuation nasal spray,suspension prazosin 1 mg capsule 1 mg PO BEDTIME 06/17/23 06/17/23 Unknown History trazodone 100 mg tablet 200 mg PO BEDTIME 06/17/23 06/17/23 Unknown History Exam Height,Weight and Vital Signs: Height 4 ft 11 in Weight 99.79 kg Last Vital Signs Temp 97.9 F 07/12/23 06:40 Pulse 98 07/12/23 06:40 Resp 16 07/12/23 06:40 BP 115/78 07/12/23 06:40 Pulse Ox 98 07/12/23 06:40 O2 Del Method Room Air 07/12/23 06:40 Airway Mallampati Class: II (missing a couple) TM Dist: >3cm Neck ROM: Full Heart: rrr Lungs: cta Assessment and Plan Assessment Anesthesia Assessment: Anesthesia Plan Discussed and Chart Reviewed Final Anesthetic Review Family History of Problems with Anesthesia: No History of Problems with Anesthesia: No NPO: Yes ASA Class: III Final Preanesthetic Review: No Changes in Pt Med Stat, Meds/Allgs Chart Reviewed and Consent Obtained/Reviewed Patient Risk: Intermediate Procedure Risk: Intermediate Anesthetic Plan Anesthetic Plan: GA Disposition: Standard PACU
--- NOTE | 2023-07-12 07:03 | MHC.SHP ---
Pre-Procedural Eval Section A Date of Service: 07/12/23 The patient is an INPATIENT: No Changes since office visit: No Cold of Flu in the past 2 weeks, No New Medical Problems, No Changes in Medication and No Patient answered all questions The History & Physical has been completed within 30 days and I have reviewed it.: Yes Section B Chief Complaint: depression Allergies: Allergies Allergy/AdvReac Type Severity Reaction Status Date / Time carbamazepine [From TEGRETOL] AdvReac Mild Nausea and Verified 03/10/23 10:29 Vomiting topiramate [From Topamax] AdvReac Mild Nausea and Verified 03/10/23 10:29 Vomiting Plan I have reviewed the history and physical and performed a pertinent physical examination on my patient. No changes have occurred unless specified. Time Spent With Patient Time: Total time managing care of this patient today ____ minutes.
--- NOTE | 2023-07-12 07:51 | HO.ECTPROC ---
ECT Procedure Note Diagnosis/Treatment Date of Service: 07/12/23 Diagnosis: Schizoaffective Disorder Previous ECT Date: 06/21/23 Treatment: Maintenance Interval Clinical Notes: The patient reported that she is staying at [facility] and she is waiting for a permanent placement, sof far, able to cope with the stressors. She reports some dysphoria but overalll at baseline, safe, no self harming behavior. No side effects with the previous ECT. ECT performed as usual, no complications. Woke up as usual, no agitation. Time: Total time managing care of this patient today ____ minutes. ECT Settings Device: THYMATRON DGx Electrode Placement: Bifrontal Program/Pulse Width: 0.50 Energy Percent: 100 Seizure Duration By EEG (in seconds): 19 By Motor Observation (in seconds): 13 Medications Administration General Anesthetic: Etomidate (14) Muscle Relaxant: Succinylcholine (100) Ancillary Medications Analgesics: Torodol - Pre ECT Anti-emetics: Zofran - Pre ECT Airway Management Airway Management: Bag Mask Ventilation Treatment Recommendations No Changes Recommended: No change Pt Tolerated Procedure w/o Issue: Yes
== END 2023-07-12 09:21 | disposition home or self-care (01) ==
PROVIDERS: Visit Provider Psychiatry & Neurology Psychiatry
PROC: (CPT 90870; principal; 2023-07-12 07:00)
DX: F25.1 Schizoaffective disorder, depressive type (principal); F43.12 Post-traumatic stress disorder, chronic; F60.3 Borderline personality disorder; R45.851 Suicidal ideations; J44.9 Chronic obstructive pulmonary disease, unspecified; R45.88 Nonsuicidal self-harm; Z79.51 Long term (current) use of inhaled steroids; Z79.899 Other long term (current) drug therapy; Z88.8 Allergy status to other drugs, medicaments and biological substances; Z86.16 Personal history of COVID-19; F17.210 Nicotine dependence, cigarettes, uncomplicated
CPT/HCPCS: 90870; J0330; J1642; J1805; J1885; J2405; J2704

== ENCOUNTER → 2023-07-12 06:13 | Outpatient (BNV) | payer OTHER, SELFPAY | PROVIDERS: Visit Provider Psychiatry & Neurology Psychiatry | DX: F33.3 Major depressive disorder, recurrent, severe with psychotic symptoms (principal) | CPT/HCPCS: 90870 ==

== ENCOUNTER 2023-07-22 20:13 | Emergency (ER) | payer OTHER, SELFPAY ==
[2023-07-22 20:24] VITALS: BP 140/78; PULSE 92; RESP 18; TEMP 36.7; O2SAT 95; BMI 43.4
[2023-07-22] MEDS: LORazepam 1 MG TABLET 2 MG PO (21:05)
--- NOTE | 2023-07-22 21:10 | ED_ITS ---
HPI - Psych General Chief Complaint: Psychiatric Symptoms Stated Complaint: CRISIS Time Seen by Provider: 07/22/23 20:28 Source: patient Mode of arrival: EMS History of Present Illness HPI Narrative: 38-year-old female is brought in by after recently having to be moved from her regular place of residence to a new place but in the antrum being required to stay at a temporary location. Patient states that it has made her feel very vulnerable, she has also had recent medication changes is also dealing with anniversary of her sister. She also reports nightmares. Related Data Home Medications Medication Instructions Recorded Confirmed acetaminophen 500 mg tablet 1 tab PO Q6H PRN pain 08/14/22 07/22/23 albuterol sulfate 90 mcg/actuation 2 puff inhalation Q6H PRN Wheezing 08/14/22 07/22/23 aerosol inhaler (ProAir HFA) diphenhydramine HCl 50 mg capsule 2 cap PO BEDTIME 08/14/22 07/22/23 (Banophen) haloperidol 5 mg tablet 1 tab PO TID PRN Agitation 08/14/22 07/22/23 hydroxyzine pamoate 50 mg capsule 1 cap PO BID PRN Anxiety 08/14/22 07/22/23 omeprazole 20 mg tablet,delayed 20 mg PO DAILY@0630 08/14/22 07/22/23 release zolpidem 10 mg tablet 1 tab PO BEDTIME 08/14/22 07/22/23 fluticasone propionate 230 2 puff inhalation BID 10/07/22 07/22/23 mcg-salmeterol 21 mcg/actuation HFA inhaler (Advair HFA) benztropine 0.5 mg tablet 1 tab PO BID 10/26/22 07/22/23 clonidine HCl 0.1 mg tablet 1 tab PO TID 10/26/22 07/22/23 duloxetine 60 mg capsule,delayed 1 cap PO DAILY 10/26/22 07/22/23 release haloperidol decanoate 100 mg/mL 75 mg IM Q4W 10/26/22 07/22/23 intramuscular solution lithium carbonate 300 mg tablet 300 mg PO BID 10/26/22 07/22/23 lorazepam 1 mg tablet 1 mg PO TID PRN Anxiety 03/25/23 07/22/23 prazosin 5 mg capsule 15 mg PO BEDTIME 03/25/23 07/22/23 fluticasone propionate 50 2 spray intranasal DAILY 06/17/23 07/22/23 mcg/actuation nasal spray,suspension prazosin 1 mg capsule 1 mg PO BEDTIME 06/17/23 07/22/23 trazodone 100 mg tablet 200 mg PO BEDTIME 06/17/23 07/22/23 Allergies Allergy/AdvReac Type Severity Reaction Status Date / Time carbamazepine [From TEGRETOL] AdvReac Mild Nausea and Verified 03/10/23 10:29 Vomiting topiramate [From Topamax] AdvReac Mild Nausea and Verified 03/10/23 10:29 Vomiting Review of Systems 2 Review of Systems: Pertinent positives and negatives as stated in HPI [facility] Past Medical History Source: nursing notes reviewed Medical History History of electroconvulsive therapy COVID-19 COVID-19 Sprain of left foot Chronic post-traumatic stress disorder (PTSD) COPD (chronic obstructive pulmonary disease) Increased BMI GERD (gastroesophageal reflux disease) Recurrent major depression-severe Acute post-traumatic stress disorder Injury, self-inflicted Suicidal ideation Self-harming behavior Intentional self-harm Suicidal ideation Borderline personality disorder Schizoaffective disorder Adjustment disorder Asthma Depression Anxiety PTSD (post-traumatic stress disorder) Family History Family History Mother Brain cancer Other No family history of cardiac disease Social History Social History Household Members: Other Household Members Other:: half-way Housing: Other Housing Other:: half-way Do you presently have visiting nurse or other home services: No Unable to assess alcohol history related to: Refusing to respond Alcohol intake: never Comment: 1:1 sitter Patient Tobacco Use Status: Current someday Tobacco user Tobacco use type: Cigarette Cigarette Packs Per Day: 0.5 Cigarettes Per Day: 10.0 Years Smoked: 20 e-Cigarette/Vaping Use: Never Used Second Hand Smoke Exposure: No Substance Use Type: Marijuana Advance Directives: No Advance Directives Information Provided: No Healthcare Proxy: No Guardian: No service: No Sexual orientation: Straight/Heterosexual Physical Exam 2 Vital Signs: Vital Signs: Last Vital Signs Temp 98.1 F 07/22/23 20:24 Pulse 92 07/22/23 20:24 Resp 18 07/22/23 20:24 BP 140/78 H 07/22/23 20:24 Pulse Ox 95 07/22/23 20:24 O2 Del Method Room Air 07/22/23 20:24 BMI result Body Mass Index 43.4 VITAL SIGNS: Reviewed. GENERAL: Well developed, well nourished, in no acute distress. HEAD: Normocephalic/atraumatic EYES: PERRLA, EOMI EARS: Ext canals without abnormality NOSE: Nares patent bilateral OROPHARYNX: no oral lesions noted, posterior pharynx clear NECK: Supple, no adenopathy LUNGS: Normal breath sounds. No adventitious sounds or accessory muscle use. SpO2<95> CARDIOVASCULAR: Regular rate and rhythm without noted murmurs ABDOMEN: Soft, non-tender, non-distended with bowel sounds. MUSCULOSKELETAL: No tenderness, deformities, or effusions noted on gross inspection. EXTREMITIES: No cyanosis, clubbing or edema. SKIN: Inspection of the skin reveals no rashes NEUROLOGIC: Alert and oriented x 4. Strength and sensation to light touch were grossly intact x 4, cranial nerves 2-12 are grossly intact. Medications Administered Generic Name Dose Route Start Last Admin Trade Name Freq PRN Reason Stop Dose Admin Diphenhydramine HCl 100 mg 07/22/23 23:15 07/23/23 00:13 Diphenhydramine Hcl 25 Mg Capsule PO 100 mg BEDTIME SULEIMAN Administration Prazosin HCl 1 mg 07/22/23 23:15 07/23/23 00:13 Prazosin Hcl 1 Mg Capsule PO 1 mg BEDTIME SULEIMAN Administration Protocol Prazosin HCl 15 mg 07/22/23 23:15 07/23/23 00:13 Prazosin Hcl 5 Mg Capsule PO 15 mg BEDTIME SULEIMAN Administration Protocol Trazodone HCl 200 mg 07/22/23 23:15 07/23/23 00:13 Trazodone Hcl 100 Mg Tablet PO 200 mg BEDTIME SULEIMAN Administration Zolpidem Tartrate 10 mg 07/22/23 23:15 07/23/23 00:13 Zolpidem Tartrate 5 Mg Tablet PO 10 mg BEDTIME SULEIMAN Administration Discontinued Medications Generic Name Dose Route Start Last Admin Trade Name Freq PRN Reason Stop Dose Admin Lorazepam 2 mg 07/22/23 20:57 07/22/23 21:05 Lorazepam 1 Mg Tablet PO 07/22/23 20:58 2 mg ONCE ONE Administration Medical Decision Making Medical Decision Making [facility] Narrative: 38-year-old female with history and clinical presentation a number of changes in a short period of time. Will medically clear and ask crisis team to evaluate. Reviewed all investigations and hematologic indices are grossly within normal limits without any noted derangements. Chemistry indices do not demonstrate any JULIANNE or electrolytes/liver enzymes derangements. Urinalysis is negative for UTI or hematuria. Toxicology is negative for salicylate/acetaminophen and lithium level is noted to be subtherapeutic at 0.42. Urine toxicology demonstrates marijuana positivity and L fell alcohol is undetectable. Crisis already evaluated the patient who is otherwise medically cleared and feel that patient will be re-evaluated in the morning and likely be a safe discharge back to her current residence. Patient placed in physician observation because the patient needed more time for re-evaluation by the crisis team in the morning.. At the time observation was started the patient's vital signs were stable, patient is alert and oriented , neuro: Nonfocal, CV RRR, lungs clear Differential Diagnosis Differential Diagnoses: The differential diagnosis associated with the presentation includes Please see the discussion above Admission/Observation Consideration of admission/observation: Escalation of care including admission/observation considered Please see the discussion above Consult Healthcare Provider Management of the patient was discussed with: [employer] Administrator Please see the discussion above Lab Data [facility] Lab Attestation statement: I reviewed the patient's lab results. Please see the discussion above 07/22/23 21:31 07/22/23 21:32 Labs: Lab Results 07/22/23 07/22/23 07/22/23 Range/Units 21:12 21:31 21:32 WBC 8.5 (4.8-10.8) X10*3/uL RBC 4.35 (4.20-5.50) X10*6/uL Hgb 12.7 (12.0-16.0) g/dl Hct 38.7 (37.0-47.0) % MCV 89.0 (80.0-98.0) fL MCH 29.2 (27.0-33.0) pg MCHC 32.8 (31.0-35.0) g/dl RDW 12.9 (11.0-16.0) % Plt Count 248 (160-400) X10*3/uL MPV 11.2 (9.4-12.3) fL Immature Gran % (Auto) 0.2 (0.0-0.4) % Neut % (Auto) 63.9 (45-73) % Lymph % (Auto) 27.8 (20-40) % [place] % (Auto) 6.1 (2-11) % Eos % (Auto) 1.5 (0-4) % Baso % (Auto) 0.5 (0-2) % Lymph # (Auto) 2.4 (1.2-4.9) X10*3/uL [place] # (Auto) 0.5 (0.1-1.2) X10*3/uL Eos # (Auto) 0.1 (0.0-0.4) X10*3/uL Baso # (Auto) 0.0 (0.0-0.2) X10*3/uL Abs Immat Gran (auto) 0.02 (0.00-0.03) X10*3/uL Absolute Neuts (auto) 5.4 (2.0-8.3) x10*3/uL Absolute Nucleated RBC 0.000 (0.0-0.012) X10*3/uL Nucleated RBC % (auto) 0.0 (0.0-0.2) /100WBC Sodium 138 (135-145) mmol/L Potassium 3.9 (3.3-5.1) mmol/L Chloride 109 H (96-108) mmol/L Carbon Dioxide 21 L (22-29) mmol/L Anion Gap 12 (12-20) BUN 9 (9-16) mg/dL Creatinine 0.80 (0.5-1.4) mg/dL Estim Creat Clear Calc 98.7 Estimated GFR > 60 Random Glucose 89 (60-115) mg/dL Calcium 9.2 (8.4-10.2) mg/dL Total Bilirubin 0.2 (0.0-1.0) mg/dL AST 12 (5-31) U/L ALT 9 (0-31) U/L Alkaline Phosphatase 60 (39-117) U/L Total Protein 6.7 (6.5-8.0) g/dL Albumin 4.0 (3.5-5.0) g/dL Urine Color Yellow Urine Appearance Clear Urine pH 6.0 (5.0-9.0) Ur Specific [place] >= 1.030 H (1.005-1.025) Urine Protein Negative (Neg-Trace) mg/dL Urine Glucose (UA) Negative (Negative) mg/dL Urine Ketones Trace (Negative) mg/dL Urine Blood Negative (Negative) Urine Nitrite Negative (Negative) Ur Leukocyte Esterase Negative (Negative) Urine Test NEGATIVE (NEGATIVE) Salicylates < 5.0 L (15-30) mg/dL Urine Opiates Screen Not Detected (Not Detect) Urine Fentanyl Screen Not Detected (Not Detect) Acetaminophen < 3 (<30) mcg/mL Ur Barbiturates Screen Not Detected (Not Detect) Ur Phencyclidine Scrn Not Detected (Not Detect) Ur Amphetamines Screen Not Detected (Not Detect) U Benzodiazepines Scrn Not Detected (Not Detect) [place] 0.42 L (0.60-1.20) mmol/L Urine Cocaine Screen Not Detected (Not Detect) U Marijuana (THC) Screen POSITIVE H (Not Detect) Ethyl Alcohol < 10 mg/dL External Record Review External record reviewed: Outpatient record and Prior outpatient labs Chronic Conditions Patient?s care impacted by: Other COPD Critical Care Time Critical Care Time Critical Care Time: Yes Total Critical Care Time: 30 Attestation: I personally attest to this time spent taking care of the patient. Discharge Plan Discharge Clinical Impression: Anxiety Patient Disposition: Still a Patient Prescriptions: No Action haloperidol 5 mg tablet 1 tab PO TID PRN (Reason: Agitation) diphenhydramine HCl [Banophen] 50 mg capsule 2 cap PO BEDTIME hydroxyzine pamoate 50 mg capsule 1 cap PO BID PRN (Reason: Anxiety) zolpidem 10 mg tablet 1 tab PO BEDTIME acetaminophen 500 mg tablet 1 tab PO Q6H PRN (Reason: pain) albuterol sulfate [ProAir HFA] 90 mcg/actuation HFA aerosol inhaler 2 puff inhalation Q6H PRN (Reason: Wheezing) omeprazole 20 mg Tablet,Delayed Release (Dr/Ec) 20 mg PO DAILY@0630 lithium carbonate 300 mg tablet 300 mg PO BID clonidine HCl 0.1 mg tablet 1 tab PO TID benztropine 0.5 mg tablet 1 tab PO BID haloperidol decanoate 100 mg/mL solution 75 mg IM Q4W Rx Instructions: NEXT DOSE: 07/09/23 duloxetine 60 mg capsule,delayed release(DR/EC) 1 cap PO DAILY fluticasone propion-salmeterol [Advair HFA] 230-21 mcg/actuation HFA aerosol inhaler 2 puff INHALATION BID prazosin 1 mg capsule 1 mg PO BEDTIME Protocol: Hold for SBP< HOLD for SBP < : 90 fluticasone propionate 50 mcg/actuation spray,suspension 2 spray intranasal DAILY trazodone 100 mg tablet 200 mg PO BEDTIME lorazepam 1 mg tablet 1 mg PO TID PRN (Reason: Anxiety) prazosin 5 mg capsule 15 mg PO BEDTIME Rx Instructions: TAKE WITH 1 MG FOR TOTAL DOSE 16MG PM Interventions: Hardy-Suicide Risk Severity Scale Last Done: 07/22/23 23:05
[2023-07-22 21:23] LABS: Appearance Urine Clear; Color Urine Yellow; Glucose Urine UA Negative (Negative); Leukocyte Esterase Urine Negative (Negative); Nitrite Urine Negative (Negative); Specific Gravity - Urine >= 1.030 (1.005-1.025); Urine Blood Negative (Negative); Urine Ketones Trace mg/dL (Negative); Urine Protein Negative (Neg-Trace)
[2023-07-22 21:36] LABS: MANUAL DIFF FLAG NO
[2023-07-22 21:45] LABS: Lithium 0.42 mmol/L (0.60-1.20)
[2023-07-22 21:49] LABS: UPreg QC Valid YES; Urine Pregnancy NEGATIVE (NEGATIVE)
[2023-07-22 21:52] LABS: Ethanol < 10 mg/dL
[2023-07-22 21:54] LABS: Acetaminophen LAB < 3 mcg/mL (<30); Alanine Aminotransferase 9 U/L (0-31); Alkaline Phosphatase 60 U/L (39-117); Anion Gap 12 (12-20); Aspartate Amino Transferase 12 U/L (5-31); Bilirubin Total 0.2 mg/dL (0.0-1.0); Blood Urea Nitrogen 9 mg/dL (9-16); Calcium 9.2 mg/dL (8.4-10.2); Carbon Dioxide 21 mmol/L (22-29); Chloride 109 mmol/L (96-108); Creatinine Clr Calc Pharmacy 98.7; Estimated Glomerular Filt Rate > 60; Glucose Random 89 mg/dL (60-115); Potassium 3.9 mmol/L (3.3-5.1); Salicylate < 5.0 mg/dL (15-30); Sodium 138 mmol/L (135-145); Total Protein 6.7 g/dL (6.5-8.0)
[2023-07-22 21:56] LABS: Amphetamine Screen Urine Not Detected (Not Detect); Barbiturates, Urine Not Detected (Not Detect); Benzodiazepines Screen Urine Not Detected (Not Detect); Cannabinoid Screen Urine POSITIVE (Not Detect); Cocaine Screen Urine Not Detected (Not Detect); Fentanyl, urine Not Detected (Not Detect); Opiate Screen Urine Not Detected (Not Detect); Phencyclidine Screen Urine Not Detected (Not Detect)
[2023-07-22 22:19] LABS: Basophils Percent Auto 0.5 % (0-2); Eosinophils Absolute Auto 0.1 X10*3/uL (0.0-0.4); Eosinophils Percent Auto 1.5 % (0-4); Hematocrit 38.7 % (37.0-47.0); Hemoglobin 12.7 g/dl (12.0-16.0); Imm Gran Abs Auto 0.02 X10*3/uL (0.00-0.03); Imm Gran Pct Auto 0.2 % (0.0-0.4); Lymphocytes Absolute Auto 2.4 X10*3/uL (1.2-4.9); Lymphocytes Percent Auto 27.8 % (20-40); Mean Corpuscular HGB Conc 32.8 g/dl (31.0-35.0); Mean Corpuscular Hemoglobin 29.2 pg (27.0-33.0); Mean Platelet Volume 11.2 fL (9.4-12.3); Monocytes Absolute Auto 0.5 X10*3/uL (0.1-1.2); Monocytes Percent Auto 6.1 % (2-11); Neutrophils Absolute Auto 5.4 x10*3/uL (2.0-8.3); Neutrophils Percent Auto 63.9 % (45-73); Platelet Count 248 X10*3/uL (160-400); Red Blood Count 4.35 X10*6/uL (4.20-5.50); Red Cell Distribution Width 12.9 % (11.0-16.0); White Blood Count 8.5 X10*3/uL (4.8-10.8)
[2023-07-23] MEDS: traZODone HCL 100 MG TABLET 200 MG PO (00:13)
[2023-07-23] MEDS: diphenhydrAMINE HCL 25 MG CAPSULE 100 MG PO (00:13)
[2023-07-23] MEDS: Zolpidem Tartrate 5 MG TABLET 10 MG PO (00:13)
[2023-07-23] MEDS: Prazosin HCL 1 MG CAPSULE PO (00:13)
[2023-07-23] MEDS: Prazosin HCL 5 MG CAPSULE 15 MG PO (00:13)
--- NOTE | 2023-07-23 03:19 | PC.NURSE ---
Took over care from RN Jessica, pt sleeping at this time.
[2023-07-23] MEDS: Omeprazole 20 MG CAPSULE.DR PO (06:39)
[2023-07-23 06:45] VITALS: BP 141/61; PULSE 76; RESP 16; TEMP 36.6; O2SAT 97
--- NOTE | 2023-07-23 07:28 | PC.NURSE ---
Ariella from [facility] called stating they have concerns with Crystal returning to respite at this time. Asking for call from care team after they see patient. [phone]
--- NOTE | 2023-07-23 08:49 | MHC.CARE ---
CARE Team called N respite; to coordinate return to respite. [facility] requested a copy of assessment and infomred t/w Pt needs approval return. t/w informed respite staff Pt does not meet criteria for IPLOC and has been cleared to be discharged from the hospital. Respite stated they follow up after reviewing assessment.
[2023-07-23] MEDS: Fluticasone/Vilanterol 200/25 BLST.W.DEV 1 PUFF INHALE (10:25)
[2023-07-23] MEDS: Lithium Carbonate 300 MG CAPSULE PO (10:25)
[2023-07-23] MEDS: Fluticasone Propionate Nasal 16 GM SPRAY 2 SPRAY NOSTRIL-B (10:25)
[2023-07-23] MEDS: cloNIDine HCL 0.1 MG TABLET PO (10:26)
[2023-07-23] MEDS: DULoxetine HCl 60 MG CAPSULE.DR PO (10:26)
[2023-07-23] MEDS: Benztropine Mesylate 0.5 MG TABLET PO (10:26)
--- NOTE | 2023-07-23 10:51 | PC.NURSE ---
Discharge instructions instructions reviewed with patient who verbalized understanding, care team to book lyft
== END 2023-07-23 10:53 | disposition home or self-care (01) ==
PROVIDERS: Emergency Provider Student in an Organized Health Care Education/Training Program
DX: F41.9 Anxiety disorder, unspecified (principal); F43.20 Adjustment disorder, unspecified; F25.1 Schizoaffective disorder, depressive type; F43.12 Post-traumatic stress disorder, chronic; F60.3 Borderline personality disorder; J44.9 Chronic obstructive pulmonary disease, unspecified; F12.90 Cannabis use, unspecified, uncomplicated; F17.210 Nicotine dependence, cigarettes, uncomplicated; Z79.899 Other long term (current) drug therapy
CPT/HCPCS: 36415; 80053; 80143; 80178; 80179; 80307; 81003; 81025; 85025; 99284; S9485

== ENCOUNTER 2023-08-02 07:15 | Day surgery (SDC) | payer OTHER, SELFPAY ==
[2023-08-02] VITALS (7 sets, daily range): BP systolic 118–155; BP diastolic 71–102; PULSE 90–99; RESP 16–20; TEMP 36.4–36.6; O2SAT 94–97; BMI 45.4
--- NOTE | 2023-08-02 07:25 | MHC.SHP ---
Pre-Procedural Eval Section A Date of Service: 08/02/23 Changes since office visit: Yes Patient answered all questions; No Cold of Flu in the past 2 weeks, No New Medical Problems and No Changes in Medication The History & Physical has been completed within 30 days and I have reviewed it.: Yes Section B Chief Complaint: depression Allergies: Allergies Allergy/AdvReac Type Severity Reaction Status Date / Time carbamazepine [From TEGRETOL] AdvReac Mild Nausea and Verified 03/10/23 10:29 Vomiting topiramate [From Topamax] AdvReac Mild Nausea and Verified 03/10/23 10:29 Vomiting Plan I have reviewed the history and physical and performed a pertinent physical examination on my patient. No changes have occurred unless specified. Time Spent With Patient Time: Total time managing care of this patient today ____ minutes.
--- NOTE | 2023-08-02 07:28 | HO.ECTPROC ---
ECT Procedure Note Diagnosis/Treatment Date of Service: 08/02/23 Diagnosis: Schizoaffective Disorder Previous ECT Date: 07/12/23 Treatment: Maintenance Interval Clinical Notes: The patient has been somewhat anxious and dysphoric she was [facility] setting and is in a transitional state to a different jail setting. Continues to feel ECT helpful alert clear sensorium able to relate recent history no complaints of cognitive side effects Time: Total time managing care of this patient today ____ minutes. ECT Settings Device: THYMATRON DGx Electrode Placement: Bitemporal Program/Pulse Width: 0.50 Energy Percent: 100 Seizure Duration By EEG (in seconds): 28 Medications Administration General Anesthetic: Etomidate (16) Muscle Relaxant: Succinylcholine (100) Ancillary Medications Anti-emetics: Zofran - Pre ECT Airway Management Airway Management: Bag Mask Ventilation Treatment Recommendations No Changes Recommended: No change Notes: Follow-up treatment 2-3 weeks Pt Tolerated Procedure w/o Issue: Yes
--- NOTE | 2023-08-02 07:34 | HO.ANESPROP2 ---
[facility] Active Problems Active Problems: All Active Problems (Updated 07/23/23 @ 01:30 by Arleen Bowers MD) Intentional self-harm (Acute) COPD (chronic obstructive pulmonary disease) (Acute) Asthma (Acute) Adjustment disorder (Acute) Anxiety (Acute) Injury of ligament of right knee (Acute) Sprain of anterior cruciate ligament of right knee (Acute) Hernia (Chronic) Schizoaffective disorder, depressive type (Chronic) Chronic post-traumatic stress disorder (PTSD) (Chronic) Increased BMI (Acute) GERD (gastroesophageal reflux disease) (Acute) Borderline personality disorder (Chronic) Past Medical History Medical History History of electroconvulsive therapy COVID-19 COVID-19 Sprain of left foot Chronic post-traumatic stress disorder (PTSD) COPD (chronic obstructive pulmonary disease) Increased BMI GERD (gastroesophageal reflux disease) Recurrent major depression-severe Acute post-traumatic stress disorder Injury, self-inflicted Suicidal ideation Self-harming behavior Intentional self-harm Suicidal ideation Borderline personality disorder Schizoaffective disorder Adjustment disorder Asthma Depression Anxiety PTSD (post-traumatic stress disorder) Family History Family History Mother Brain cancer Other No family history of cardiac disease Family history of problems with anesthesia: No Surgical History History of Problems with Anesthesia: No Social History Social History Household Members: Other Household Members Other:: senior care Housing: Other Housing Other:: senior care Do you presently have visiting nurse or other home services: No Unable to assess alcohol history related to: Refusing to respond Alcohol intake: never Comment: 1:1 sitter Patient Tobacco Use Status: Current everyday Tobacco user Tobacco use type: Cigarette Cigarette Packs Per Day: 0.5 Cigarettes Per Day: 10.0 Years Smoked: 20 e-Cigarette/Vaping Use: Never Used Second Hand Smoke Exposure: No Use of substances other than those prescribed or required for medical reasons: No Substance Use Type: Marijuana Advance Directives: No Advance Directives Information Provided: Yes service: No Sexual orientation: Straight/Heterosexual Meds Allergies Allergy/AdvReac Type Severity Reaction Status Date / Time carbamazepine [From TEGRETOL] AdvReac Mild Nausea and Verified 03/10/23 10:29 Vomiting topiramate [From Topamax] AdvReac Mild Nausea and Verified 03/10/23 10:29 Vomiting Home Medications Medication Instructions Recorded Confirmed Last Taken Type acetaminophen 500 mg tablet 1 tab PO Q6H PRN pain 08/14/22 07/22/23 03/13/23 History albuterol sulfate 90 mcg/actuation 2 puff inhalation Q6H PRN Wheezing 08/14/22 07/22/23 03/13/23 History aerosol inhaler (ProAir HFA) diphenhydramine HCl 50 mg capsule 2 cap PO BEDTIME 08/14/22 07/22/23 07/21/23 20:00 History (Banophen) haloperidol 5 mg tablet 1 tab PO TID PRN Agitation 08/14/22 07/22/23 03/13/23 History hydroxyzine pamoate 50 mg capsule 1 cap PO BID PRN Anxiety 08/14/22 07/22/23 03/13/23 History omeprazole 20 mg tablet,delayed 20 mg PO DAILY@0630 08/14/22 07/22/23 07/21/23 20:00 History release zolpidem 10 mg tablet 1 tab PO BEDTIME 08/14/22 07/22/23 07/21/23 20:00 History fluticasone propionate 230 2 puff inhalation BID 10/07/22 07/22/23 07/22/23 08:00 History mcg-salmeterol 21 mcg/actuation HFA inhaler (Advair HFA) benztropine 0.5 mg tablet 1 tab PO BID 10/26/22 07/22/23 07/22/23 08:00 History clonidine HCl 0.1 mg tablet 1 tab PO TID 10/26/22 07/22/23 07/22/23 14:00 History duloxetine 60 mg capsule,delayed 1 cap PO DAILY 10/26/22 07/22/23 07/22/23 08:00 History release haloperidol decanoate 100 mg/mL 75 mg IM Q4W 10/26/22 07/22/23 06/11/23 History intramuscular solution lithium carbonate 300 mg tablet 300 mg PO BID 10/26/22 07/22/23 07/22/23 08:00 History lorazepam 1 mg tablet 1 mg PO TID PRN Anxiety 03/25/23 07/22/23 Unknown History prazosin 5 mg capsule 15 mg PO BEDTIME 03/25/23 07/22/23 07/21/23 20:00 History fluticasone propionate 50 2 spray intranasal DAILY 06/17/23 07/22/23 07/22/23 08:00 History mcg/actuation nasal spray,suspension prazosin 1 mg capsule 1 mg PO BEDTIME 06/17/23 07/22/23 07/21/23 20:00 History trazodone 100 mg tablet 200 mg PO BEDTIME 06/17/23 07/22/23 07/21/23 20:00 History Exam Height,Weight and Vital Signs: Height 4 ft 11 in Weight 102.058 kg Last Vital Signs Temp 97.6 F 08/02/23 07:17 Pulse 91 08/02/23 07:17 Resp 18 08/02/23 07:17 BP 125/102 H 08/02/23 07:17 Pulse Ox 96 08/02/23 07:17 O2 Del Method Room Air 08/02/23 07:17 Airway Mallampati Class: II (missing coupke teeth) TM Dist: >3cm Neck ROM: Full Heart: rrr Lungs: cta Assessment and Plan Assessment Anesthesia Assessment: Anesthesia Plan Discussed and Chart Reviewed Final Anesthetic Review Family History of Problems with Anesthesia: No History of Problems with Anesthesia: No NPO: Yes ASA Class: III Final Preanesthetic Review: No Changes in Pt Med Stat, Meds/Allgs Chart Reviewed and Consent Obtained/Reviewed Patient Risk: Intermediate Procedure Risk: Intermediate Anesthetic Plan Anesthetic Plan: GA Disposition: Standard PACU
== END 2023-08-02 08:49 | disposition home or self-care (01) ==
PROVIDERS: Psychiatry & Neurology Psychiatry; Visit Provider Psychiatry & Neurology Psychiatry
PROC: (CPT 90870; principal; 2023-08-02 07:00)
DX: F25.1 Schizoaffective disorder, depressive type (principal); F41.1 Generalized anxiety disorder; F60.3 Borderline personality disorder; R45.851 Suicidal ideations; G47.34 Idiopathic sleep related nonobstructive alveolar hypoventilation; R91.8 Other nonspecific abnormal finding of lung field; E66.01 Morbid (severe) obesity due to excess calories; Z68.43 Body mass index [BMI] 50.0-59.9, adult; F43.12 Post-traumatic stress disorder, chronic; Z79.51 Long term (current) use of inhaled steroids; Z79.899 Other long term (current) drug therapy
CPT/HCPCS: 90870; J0330; J1642; J1805; J1885; J2405; J2704

== ENCOUNTER → 2023-08-02 07:15 | Outpatient (BNV) | payer OTHER, SELFPAY | PROVIDERS: Visit Provider Psychiatry & Neurology Psychiatry | DX: F33.3 Major depressive disorder, recurrent, severe with psychotic symptoms (principal) | CPT/HCPCS: 90870 ==

== ENCOUNTER 2023-08-20 05:59 | Day surgery (SDC) | payer OTHER, SELFPAY ==
[2023-08-20] VITALS (8 sets, daily range): BP systolic 121–157; BP diastolic 69–92; PULSE 76–92; RESP 12–20; TEMP 36.3–36.8; O2SAT 95–99; BMI 42.4
--- NOTE | 2023-08-20 06:59 | HO.ANESPROP2 ---
[facility] Active Problems Active Problems: All Active Problems (Updated 07/23/23 @ 01:30 by Arleen Bowers MD) Intentional self-harm (Acute) COPD (chronic obstructive pulmonary disease) (Acute) Asthma (Acute) Adjustment disorder (Acute) Anxiety (Acute) Injury of ligament of right knee (Acute) Sprain of anterior cruciate ligament of right knee (Acute) Hernia (Chronic) Schizoaffective disorder, depressive type (Chronic) Chronic post-traumatic stress disorder (PTSD) (Chronic) Increased BMI (Acute) GERD (gastroesophageal reflux disease) (Acute) Borderline personality disorder (Chronic) Past Medical History Medical History History of electroconvulsive therapy COVID-19 COVID-19 Sprain of left foot Chronic post-traumatic stress disorder (PTSD) COPD (chronic obstructive pulmonary disease) Increased BMI GERD (gastroesophageal reflux disease) Recurrent major depression-severe Acute post-traumatic stress disorder Injury, self-inflicted Suicidal ideation Self-harming behavior Intentional self-harm Suicidal ideation Borderline personality disorder Schizoaffective disorder Adjustment disorder Asthma Depression Anxiety PTSD (post-traumatic stress disorder) Family History Family History Mother Brain cancer Other No family history of cardiac disease Family history of problems with anesthesia: No Surgical History History of Problems with Anesthesia: No Social History Social History Household Members: Other Household Members Other:: [facility] Housing: Other Housing Other:: [facility] Do you presently have visiting nurse or other home services: No Unable to assess alcohol history related to: Refusing to respond Alcohol intake: never Comment: 1:1 sitter Patient Tobacco Use Status: Current everyday Tobacco user Tobacco use type: Cigarette Cigarette Packs Per Day: 0.5 Cigarettes Per Day: 10.0 Years Smoked: 20 e-Cigarette/Vaping Use: Never Used Second Hand Smoke Exposure: No Substance Use Type: Marijuana Advance Directives: No Advance Directives Information Provided: Yes service: No Sexual orientation: Straight/Heterosexual Meds Allergies Allergy/AdvReac Type Severity Reaction Status Date / Time carbamazepine [From TEGRETOL] AdvReac Mild Nausea and Verified 03/10/23 10:29 Vomiting topiramate [From Topamax] AdvReac Mild Nausea and Verified 03/10/23 10:29 Vomiting Home Medications Medication Instructions Recorded Confirmed Last Taken Type acetaminophen 500 mg tablet 1 tab PO Q6H PRN pain 08/14/22 07/22/23 03/13/23 History albuterol sulfate 90 mcg/actuation 2 puff inhalation Q6H PRN Wheezing 08/14/22 07/22/23 03/13/23 History aerosol inhaler (ProAir HFA) diphenhydramine HCl 50 mg capsule 2 cap PO BEDTIME 08/14/22 07/22/23 07/21/23 20:00 History (Banophen) haloperidol 5 mg tablet 1 tab PO TID PRN Agitation 08/14/22 07/22/23 03/13/23 History hydroxyzine pamoate 50 mg capsule 1 cap PO BID PRN Anxiety 08/14/22 07/22/23 03/13/23 History omeprazole 20 mg tablet,delayed 20 mg PO DAILY@0630 08/14/22 07/22/23 07/21/23 20:00 History release zolpidem 10 mg tablet 1 tab PO BEDTIME 08/14/22 07/22/23 07/21/23 20:00 History fluticasone propionate 230 2 puff inhalation BID 10/07/22 07/22/23 07/22/23 08:00 History mcg-salmeterol 21 mcg/actuation HFA inhaler (Advair HFA) benztropine 0.5 mg tablet 1 tab PO BID 10/26/22 07/22/23 07/22/23 08:00 History clonidine HCl 0.1 mg tablet 1 tab PO TID 10/26/22 07/22/23 07/22/23 14:00 History duloxetine 60 mg capsule,delayed 1 cap PO DAILY 10/26/22 07/22/23 07/22/23 08:00 History release haloperidol decanoate 100 mg/mL 75 mg IM Q4W 10/26/22 07/22/23 06/11/23 History intramuscular solution lithium carbonate 300 mg tablet 300 mg PO BID 10/26/22 07/22/23 07/22/23 08:00 History lorazepam 1 mg tablet 1 mg PO TID PRN Anxiety 03/25/23 07/22/23 Unknown History prazosin 5 mg capsule 15 mg PO BEDTIME 03/25/23 07/22/2307/21/23 20:00 History fluticasone propionate 50 2 spray intranasal DAILY 06/17/23 07/22/23 07/22/23 08:00 History mcg/actuation nasal spray,suspension prazosin 1 mg capsule 1 mg PO BEDTIME 06/17/23 07/22/23 07/21/23 20:00 History trazodone 100 mg tablet 200 mg PO BEDTIME 06/17/23 07/22/23 07/21/23 20:00 History Exam Height,Weight and Vital Signs: Height 4 ft 11 in Weight 95.254 kg Last Vital Signs Temp 97.4 F 08/20/23 06:45 Pulse 92 08/20/23 06:45 Resp 20 08/20/23 06:45 BP 138/82 08/20/23 06:45 Pulse Ox 99 08/20/23 06:45 O2 Del Method Room Air 08/20/23 06:45 Airway Mallampati Class: II (missing a couple teeth) TM Dist: >3cm Neck ROM: Full Heart: rrr Lungs: cta Assessment and Plan Assessment Anesthesia Assessment: Anesthesia Plan Discussed and Chart Reviewed Final Anesthetic Review Family History of Problems with Anesthesia: No History of Problems with Anesthesia: No NPO: Yes ASA Class: III Final Preanesthetic Review: No Changes in Pt Med Stat, Meds/Allgs Chart Reviewed and Consent Obtained/Reviewed Patient Risk: Intermediate Procedure Risk: Intermediate Anesthetic Plan Anesthetic Plan: GA Disposition: Standard PACU
--- NOTE | 2023-08-20 07:10 | MHC.SHP ---
Pre-Procedural Eval Section A Date of Service: 08/20/23 The patient is an INPATIENT: No Changes since office visit: No Cold of Flu in the past 2 weeks, No New Medical Problems, No Changes in Medication and No Patient answered all questions The History & Physical has been completed within 30 days and I have reviewed it.: Yes Section B Chief Complaint: depression Allergies: Allergies Allergy/AdvReac Type Severity Reaction Status Date / Time carbamazepine [From TEGRETOL] AdvReac Mild Nausea and Verified 03/10/23 10:29 Vomiting topiramate [From Topamax] AdvReac Mild Nausea and Verified 03/10/23 10:29 Vomiting Plan I have reviewed the history and physical and performed a pertinent physical examination on my patient. No changes have occurred unless specified. Time Spent With Patient Time: Total time managing care of this patient today ____ minutes.
--- NOTE | 2023-08-20 08:08 | HO.ECTPROC ---
ECT Procedure Note Diagnosis/Treatment Date of Service: 08/20/23 Diagnosis: Schizoaffective Disorder Previous ECT Date: 08/02/23 Treatment: Maintenance Interval Clinical Notes: The patient denies new symptoms, chronic mild dysphoria but no self-harming behavior, still residing at [facility]. NO side effects with prior ECT. ECT done as usual, no complications, woke up well Time: Total time managing care of this patient today __30__ minutes. ECT Settings Device: THYMATRON DGx Electrode Placement: Bitemporal Program/Pulse Width: 0.50 Energy Percent: 100 Seizure Duration By EEG (in seconds): 19 By Motor Observation (in seconds): 15 Medications Administration General Anesthetic: Etomidate (16) Muscle Relaxant: Succinylcholine (100) Ancillary Medications Analgesics: Torodol - Pre ECT Anti-emetics: Zofran - Pre ECT Airway Management Airway Management: Bag Mask Ventilation Treatment Recommendations No Changes Recommended: No change Pt Tolerated Procedure w/o Issue: Yes
== END 2023-08-20 09:41 | disposition home or self-care (01) ==
PROVIDERS: Visit Provider Psychiatry & Neurology Psychiatry
PROC: (CPT 90870; principal; 2023-08-20 07:00)
DX: F33.2 Major depressive disorder, recurrent severe without psychotic features (principal); F25.1 Schizoaffective disorder, depressive type; F41.1 Generalized anxiety disorder; F60.3 Borderline personality disorder; R45.851 Suicidal ideations; G47.34 Idiopathic sleep related nonobstructive alveolar hypoventilation; G47.33 Obstructive sleep apnea (adult) (pediatric); R91.8 Other nonspecific abnormal finding of lung field; J44.9 Chronic obstructive pulmonary disease, unspecified; E66.01 Morbid (severe) obesity due to excess calories; Z68.43 Body mass index [BMI] 50.0-59.9, adult; F43.12 Post-traumatic stress disorder, chronic; Z79.899 Other long term (current) drug therapy; Z79.51 Long term (current) use of inhaled steroids
CPT/HCPCS: 90870; J0330; J1596; J1805; J1885; J2405; J2704

== ENCOUNTER → 2023-08-20 05:59 | Outpatient (BNV) | payer OTHER, SELFPAY | PROVIDERS: Visit Provider Psychiatry & Neurology Psychiatry | DX: F33.3 Major depressive disorder, recurrent, severe with psychotic symptoms (principal) | CPT/HCPCS: 90870 ==

== ENCOUNTER 2023-08-30 06:22 | Day surgery (SDC) | payer OTHER, SELFPAY ==
[2023-08-30 06:29] VITALS: BMI 41.4
[2023-08-30 06:36] VITALS: BP 139/90; PULSE 118; RESP 20; TEMP 36.1; O2SAT 97
--- NOTE | 2023-08-30 07:00 | HO.ANESPROP2 ---
[facility] Active Problems Active Problems: All Active Problems (Updated 07/23/23 @ 01:30 by Arleen Bowers MD) Intentional self-harm (Acute) COPD (chronic obstructive pulmonary disease) (Acute) Asthma (Acute) Adjustment disorder (Acute) Anxiety (Acute) Injury of ligament of right knee (Acute) Sprain of anterior cruciate ligament of right knee (Acute) Hernia (Chronic) Schizoaffective disorder, depressive type (Chronic) Chronic post-traumatic stress disorder (PTSD) (Chronic) Increased BMI (Acute) GERD (gastroesophageal reflux disease) (Acute) Borderline personality disorder (Chronic) Past Medical History Medical History History of electroconvulsive therapy COVID-19 COVID-19 Sprain of left foot Chronic post-traumatic stress disorder (PTSD) COPD (chronic obstructive pulmonary disease) Increased BMI GERD (gastroesophageal reflux disease) Recurrent major depression-severe Acute post-traumatic stress disorder Injury, self-inflicted Suicidal ideation Self-harming behavior Intentional self-harm Suicidal ideation Borderline personality disorder Schizoaffective disorder Adjustment disorder Asthma Depression Anxiety PTSD (post-traumatic stress disorder) Family History Family History Mother Brain cancer Other No family history of cardiac disease Family history of problems with anesthesia: No Surgical History History of Problems with Anesthesia: No Social History Social History Household Members: Other Household Members Other:: assisted Housing: Other Housing Other:: assisted Do you presently have visiting nurse or other home services: No Unable to assess alcohol history related to: Refusing to respond Alcohol intake: never Comment: 1:1 sitter Patient Tobacco Use Status: Current everyday Tobacco user Tobacco use type: Cigarette Cigarette Packs Per Day: 0.5 Cigarettes Per Day: 10.0 Years Smoked: 20 e-Cigarette/Vaping Use: Never Used Second Hand Smoke Exposure: No Substance Use Type: Marijuana Advance Directives: No Advance Directives Information Provided: Yes service: No Sexual orientation: Straight/Heterosexual Meds Allergies Allergy/AdvReac Type Severity Reaction Status Date / Time carbamazepine [From TEGRETOL] AdvReac Mild Nausea and Verified 03/10/23 10:29 Vomiting topiramate [From Topamax] AdvReac Mild Nausea and Verified 03/10/23 10:29 Vomiting Home Medications Medication Instructions Recorded Confirmed Last Taken Type acetaminophen 500 mg tablet 1 tab PO Q6H PRN pain 08/14/22 07/22/23 03/13/23 History albuterol sulfate 90 mcg/actuation 2 puff inhalation Q6H PRN Wheezing 08/14/22 07/22/23 03/13/23 History aerosol inhaler (ProAir HFA) diphenhydramine HCl 50 mg capsule 2 cap PO BEDTIME 08/14/22 07/22/23 07/21/23 20:00 History (Banophen) haloperidol 5 mg tablet 1 tab PO TID PRN Agitation 08/14/22 07/22/23 03/13/23 History hydroxyzine pamoate 50 mg capsule 1 cap PO BID PRN Anxiety 08/14/22 07/22/23 03/13/23 History omeprazole 20 mg tablet,delayed 20 mg PO DAILY@0630 08/14/22 07/22/23 07/21/23 20:00 History release zolpidem 10 mg tablet 1 tab PO BEDTIME 08/14/22 07/22/23 07/21/23 20:00 History fluticasone propionate 230 2 puff inhalation BID 10/07/22 07/22/23 07/22/23 08:00 History mcg-salmeterol 21 mcg/actuation HFA inhaler (Advair HFA) benztropine 0.5 mg tablet 1 tab PO BID 10/26/22 07/22/23 07/22/23 08:00 History clonidine HCl 0.1 mg tablet 1 tab PO TID 10/26/22 07/22/23 07/22/23 14:00 History duloxetine 60 mg capsule,delayed 1 cap PO DAILY 10/26/22 07/22/23 07/22/23 08:00 History release haloperidol decanoate 100 mg/mL 75 mg IM Q4W 10/26/22 07/22/23 06/11/23 History intramuscular solution lithium carbonate 300 mg tablet 300 mg PO BID 10/26/22 07/22/23 07/22/23 08:00 History lorazepam 1 mg tablet 1 mg PO TID PRN Anxiety 03/25/23 07/22/23 Unknown History prazosin 5 mg capsule 15 mg PO BEDTIME 03/25/23 07/22/2307/21/23 20:00 History fluticasone propionate 50 2 spray intranasal DAILY 06/17/23 07/22/23 07/22/23 08:00 History mcg/actuation nasal spray,suspension prazosin 1 mg capsule 1 mg PO BEDTIME 06/17/23 07/22/23 07/21/23 20:00 History trazodone 100 mg tablet 200 mg PO BEDTIME 06/17/23 07/22/23 07/21/23 20:00 History Exam Height,Weight and Vital Signs: Height 4 ft 11 in Weight 92.986 kg Last Vital Signs Temp 97 F 08/30/23 06:36 Pulse 118 H 08/30/23 06:36 Resp 20 08/30/23 06:36 BP 139/90 H 08/30/23 06:36 Pulse Ox 97 08/30/23 06:36 O2 Del Method Room Air 08/30/23 06:36 Airway Mallampati Class: III TM Dist: >3cm Neck ROM: Full Heart: rrr Lungs: cta Assessment and Plan Assessment Anesthesia Assessment: Anesthesia Plan Discussed Final Anesthetic Review Family History of Problems with Anesthesia: No History of Problems with Anesthesia: No NPO: Yes ASA Class: III Final Preanesthetic Review: No Changes in Pt Med Stat, Meds/Allgs Chart Reviewed and Consent Obtained/Reviewed Patient Risk: Intermediate Procedure Risk: Intermediate Anesthetic Plan Anesthetic Plan: GA Disposition: Standard PACU
--- NOTE | 2023-08-30 07:08 | MHC.SHP ---
Pre-Procedural Eval Section A Date of Service: 08/30/23 The patient is an INPATIENT: No Changes since office visit: No Cold of Flu in the past 2 weeks, No New Medical Problems, No Changes in Medication and No Patient answered all questions The History & Physical has been completed within 30 days and I have reviewed it.: Yes Section B Chief Complaint: depression Allergies: Allergies Allergy/AdvReac Type Severity Reaction Status Date / Time carbamazepine [From TEGRETOL] AdvReac Mild Nausea and Verified 03/10/23 10:29 Vomiting topiramate [From Topamax] AdvReac Mild Nausea and Verified 03/10/23 10:29 Vomiting Plan I have reviewed the history and physical and performed a pertinent physical examination on my patient. No changes have occurred unless specified. Time Spent With Patient Time: Total time managing care of this patient today ____ minutes.
--- NOTE | 2023-08-30 07:09 | MHC.SHP ---
Pre-Procedural Eval Section A Date of Service: 08/30/23 The patient is an INPATIENT: No Changes since office visit: No Cold of Flu in the past 2 weeks, No New Medical Problems, No Changes in Medication and No Patient answered all questions Section B Chief Complaint: depression Allergies: Allergies Allergy/AdvReac Type Severity Reaction Status Date / Time carbamazepine [From TEGRETOL] AdvReac Mild Nausea and Verified 03/10/23 10:29 Vomiting topiramate [From Topamax] AdvReac Mild Nausea and Verified 03/10/23 10:29 Vomiting Plan I have reviewed the history and physical and performed a pertinent physical examination on my patient. No changes have occurred unless specified. Time Spent With Patient Time: Total time managing care of this patient today ____ minutes.
--- NOTE | 2023-08-30 07:40 | HO.ECTPROC ---
ECT Procedure Note Diagnosis/Treatment Date of Service: 08/30/23 Diagnosis: Schizoaffective Disorder Previous ECT Date: 08/20/23 Treatment: Maintenance Interval Clinical Notes: dysphoria, worsening depression due to anniversary of sisters ; requesting increased frequency of ECT denies side-effects from previous ECT today, ECT complete, no complications, no side-effects, woke w/ out incident Time: Total time managing care of this patient today ____ minutes. ECT Settings Device: THYMATRON DGx Electrode Placement: Bitemporal Program/Pulse Width: 0.50 Energy Percent: 100 Seizure Duration By EEG (in seconds): 25 By Motor Observation (in seconds): 15 Medications Administration General Anesthetic: Etomidate (16mg) Muscle Relaxant: Succinylcholine (100mg) Ancillary Medications Analgesics: Torodol - Pre ECT (15mg) Anti-emetics: Zofran - Pre ECT (4mg) Airway Management Airway Management: Bag Mask Ventilation Treatment Recommendations No Changes Recommended: No change (increase to 1/week; no other changes)
[2023-08-30 07:48] VITALS: BP 141/92; PULSE 68; RESP 16; TEMP 36.9; O2SAT 97
[2023-08-30 07:53] VITALS: BP 141/92; PULSE 94; RESP 14; O2SAT 98
[2023-08-30 07:58] VITALS: BP 138/93; PULSE 99; RESP 20; O2SAT 97
[2023-08-30 08:03] VITALS: BP 142/87; PULSE 102; RESP 20; O2SAT 97
[2023-08-30 08:20] VITALS: BP 142/87; PULSE 101; RESP 18; TEMP 36.3; O2SAT 99
== END 2023-08-30 09:03 | disposition home or self-care (01) ==
PROVIDERS: Visit Provider Psychiatry & Neurology Psychiatry
PROC: (CPT 90870; principal; 2023-08-30 07:00)
DX: F25.1 Schizoaffective disorder, depressive type (principal); F43.12 Post-traumatic stress disorder, chronic; F41.1 Generalized anxiety disorder; F60.3 Borderline personality disorder; J44.9 Chronic obstructive pulmonary disease, unspecified; R91.8 Other nonspecific abnormal finding of lung field; G47.33 Obstructive sleep apnea (adult) (pediatric); Z79.51 Long term (current) use of inhaled steroids; Z79.899 Other long term (current) drug therapy; E66.01 Morbid (severe) obesity due to excess calories; Z68.43 Body mass index [BMI] 50.0-59.9, adult; F17.210 Nicotine dependence, cigarettes, uncomplicated; Z88.8 Allergy status to other drugs, medicaments and biological substances
CPT/HCPCS: 90870; J0330; J1596; J1642; J1805; J1885; J2405; J2704

== ENCOUNTER → 2023-08-30 06:22 | Outpatient (BNV) | payer OTHER, SELFPAY | PROVIDERS: Visit Provider Psychiatry & Neurology Psychiatry | DX: F33.3 Major depressive disorder, recurrent, severe with psychotic symptoms (principal) | CPT/HCPCS: 90870 ==

== ENCOUNTER 2023-09-04 16:31 | Emergency (ER) | payer OTHER, SELFPAY ==
[2023-09-04 16:43] VITALS: BP 123/76; BP 132/78; PULSE 83; PULSE 98; RESP 20; TEMP 37.2; O2SAT 100; O2SAT 97; BMI 46.4
--- NOTE | 2023-09-04 17:10 | ED_ITS ---
HPI - Psych General Chief Complaint: Psychiatric Symptoms Stated Complaint: From N, Some SI, no HI, pt is calm and cooperati Time Seen by Provider: 09/04/23 16:44 History of Present Illness HPI Narrative: Patient is 38 years old history of PTSD, anxiety, suicidal ideation. History of schizoaffective disorder. patient got extremely agitated. Question suicidal ideation patient tried to cut herself. Was sent in for further evaluation. Upon arrival patient got extremely agitated was uncooperative. Related Data Home Medications Medication Instructions Recorded Confirmed acetaminophen 500 mg tablet 1 tab PO Q6H PRN pain 08/14/22 09/04/23 albuterol sulfate 90 mcg/actuation 2 puff inhalation Q6H PRN Wheezing 08/14/22 09/04/23 aerosol inhaler (ProAir HFA) diphenhydramine HCl 50 mg capsule 2 cap PO BEDTIME 08/14/22 09/04/23 (Banophen) haloperidol 5 mg tablet 1 tab PO TID PRN Agitation 08/14/22 09/04/23 hydroxyzine pamoate 50 mg capsule 1 cap PO BID PRN Anxiety 08/14/22 09/04/23 omeprazole 20 mg tablet,delayed 20 mg PO DAILY@0630 08/14/22 09/04/23 release zolpidem 10 mg tablet 1 tab PO BEDTIME 08/14/22 09/04/23 fluticasone propionate 230 2 puff inhalation BID 10/07/22 09/04/23 mcg-salmeterol 21 mcg/actuation HFA inhaler (Advair HFA) benztropine 0.5 mg tablet 1 tab PO BID 10/26/22 09/04/23 clonidine HCl 0.1 mg tablet 1 tab PO TID 10/26/22 09/04/23 duloxetine 60 mg capsule,delayed 1 cap PO DAILY 10/26/22 09/04/23 release haloperidol decanoate 100 mg/mL 75 mg IM Q4W 10/26/22 09/04/23 intramuscular solution lithium carbonate 300 mg tablet 300 mg PO BID 10/26/22 09/04/23 lorazepam 1 mg tablet 1 mg PO TID PRN Anxiety 03/25/23 09/04/23 prazosin 5 mg capsule 15 mg PO BEDTIME 03/25/23 09/04/23 fluticasone propionate 50 2 spray intranasal DAILY 06/17/23 09/04/23 mcg/actuation nasal spray,suspension prazosin 1 mg capsule 1 mg PO BEDTIME 06/17/23 09/04/23 trazodone 100 mg tablet 200 mg PO BEDTIME 06/17/23 09/04/23 Allergies Allergy/AdvReac Type Severity Reaction Status Date / Time carbamazepine [From TEGRETOL] AdvReac Mild Nausea and Verified 03/10/23 10:29 Vomiting topiramate [From Topamax] AdvReac Mild Nausea and Verified 03/10/23 10:29 Vomiting Review of Systems 2 Review of Systems: Unable to obtain review of systems secondary to patient's condition PMFSH Past Medical History Onset Date is defined in the Problem List Problems that require an onset date and time if occurred within 24 hrs of arrival to the ED Aortic Dissection and Rupture; Neurologic impairment; Cardiopulmonary Arrest; Endotracheal Intubation; Insertion or Replacement of Mechanical Circulatory Assist Device Medical History History of electroconvulsive therapy COVID-19 COVID-19 Sprain of left foot Chronic post-traumatic stress disorder (PTSD) COPD (chronic obstructive pulmonary disease) Increased BMI GERD (gastroesophageal reflux disease) Recurrent major depression-severe Acute post-traumatic stress disorder Injury, self-inflicted Suicidal ideation Self-harming behavior Intentional self-harm Suicidal ideation Borderline personality disorder Schizoaffective disorder Adjustment disorder Asthma Depression Anxiety PTSD (post-traumatic stress disorder) Family History Family History Mother Brain cancer Other No family history of cardiac disease Social History Social History Household Members: Other Household Members Other:: custodial Housing: Other Housing Other:: custodial Do you presently have visiting nurse or other home services: No Unable to assess alcohol history related to: Refusing to respond Alcohol intake: never Comment: 1:1 sitter Patient Tobacco Use Status: Current everyday Tobacco user Tobacco use type: Cigarette Cigarette Packs Per Day: 0.5 Cigarettes Per Day: 10.0 Years Smoked: 20 e-Cigarette/Vaping Use: Never Used Second Hand Smoke Exposure: No Substance Use Type: Marijuana Advance Directives: No Advance Directives Information Provided: No Guardian: No service: No Sexual orientation: Straight/Heterosexual Physical Exam 2 Vital Signs: Vital Signs: Last Vital Signs Temp 97.6 F 09/04/23 20:49 Pulse 99 09/04/23 20:49 Resp 18 09/04/23 20:49 BP 117/70 09/04/23 20:49 Pulse Ox 98 09/04/23 20:49 O2 Del Method Room Air 09/04/23 20:49 BMI result Body Mass Index 46.4 Appearance: Alert. Oriented X3. No acute distress. Eyes: Pupils equal, round and reactive to light. ENT: Pharynx normal. Neck: Normal inspection. Neck supple. No lymph nodes noted. No crepitus CVS: Normal heart rate and rhythm. Pulses normal. Normal S1 and S2 Respiratory: No respiratory distress. Breath sounds normal. No Wheezing. No rales Abdomen: Soft and nontender. No rigidity. No distention. good BS x4 Skin: Multiple abrasion noted in the forearm Extremities: No lower extremity edema. Neurovascular intact to all extremities. No Lacerations. No Rash Neuro: Oriented X 3. No motor deficit. No sensory deficit. Moving all extermities. No slurred speech. Cranial nerves grossly intact Medications Administered Generic Name Dose Route Start Last Admin Trade Name Freq PRN Reason Stop Dose Admin Benztropine Mesylate 0.5 mg 09/04/23 22:00 09/04/23 22:27 Benztropine Mesylate 0.5 Mg Tablet PO 0.5 mg BID SULEIMAN Administration Clonidine HCl 0.1 mg 09/04/23 22:00 09/04/23 22:27 Clonidine Hcl 0.1 Mg Tablet PO 0.1 mg TID SULEIMAN Administration Protocol Diphenhydramine HCl 100 mg 09/04/23 22:00 09/04/23 22:27 Diphenhydramine Hcl 25 Mg Capsule PO 100 mg BEDTIME SULEIMAN Administration Haloperidol 5 mg 09/04/23 21:55 09/04/23 22:27 Haloperidol 5 Mg Tablet PO 5 mg TID PRN Administration Agitation [place] Carbonate 300 mg 09/04/23 22:00 09/04/23 22:27 [place] Carbonate 300 Mg Capsule PO 300 mg BID SULEIMAN Administration Lorazepam 1 mg 09/04/23 21:55 09/04/23 22:27 Lorazepam 1 Mg Tablet PO 1 mg TID PRN Administration Anxiety Prazosin HCl 1 mg 09/04/23 22:00 09/04/23 22:32 Prazosin Hcl 1 Mg Capsule PO 1 mg BEDTIME SULEIMAN Administration Protocol Prazosin HCl 15 mg 09/04/23 22:00 09/04/23 22:31 Prazosin Hcl 5 Mg Capsule PO 15 mg BEDTIME SULEIMAN Administration Protocol Trazodone HCl 200 mg 09/04/23 22:00 09/04/23 22:32 Trazodone Hcl 100 Mg Tablet PO 200 mg BEDTIME SULEIMAN Administration Zolpidem Tartrate 5 mg 09/04/23 22:00 09/04/23 22:32 Zolpidem Tartrate 5 Mg Tablet PO 5 mg BEDTIME SULEIMAN Administration Discontinued Medications Generic Name Dose Route Start Last Admin Trade Name Griffinq PRN Reason Stop Dose Admin Diazepam 10 mg 09/04/23 17:06 09/04/23 17:12 Diazepam 10 Mg/2 Ml Cartridge IM 09/04/23 17:07 10 mg STAT STA Administration Diphenhydramine HCl 25 mg 09/04/23 17:06 09/04/23 17:13 Diphenhydramine Hcl 50 Mg/Ml Vial IM 09/04/23 17:07 25 mg ONCE ONE Administration Haloperidol Lactate 5 mg 09/04/23 17:06 09/04/23 17:13 Haloperidol Lactate 5 Mg/Ml Vial IM 09/04/23 17:07 5 mg ONCE ONE Administration Medical Decision Making Medical Decision Making MDM Narrative: Well-appearing no acute distress. Currently awaiting crisis evaluation. Patient's white count is normal. Electrolytes are unremarkable. test was negative. U tox positive for marijuana only. COVID test was negative. Was initially seen by care team. Wants a re-evaluation in a.m.. Multiple abrasion in the forearm noted. Most of which is old. Very superficial. In no distress. After monitoring patient is now out of restraints Differential Diagnosis Differential Diagnoses: The differential diagnosis associated with the presentation includes Admission/Observation Consideration of admission/observation: Escalation of care including admission/observation considered Consult Healthcare Provider Management of the patient was discussed with: Senior Internal Auditor (Care team) and Behavioral Health Provider Lab Data MDM Lab Attestation statement: I reviewed the patient's lab results. 09/04/23 18:56 09/04/23 18:56 Labs: Lab Results 09/04/23 Range/Units 18:56 WBC 7.7 (4.8-10.8) X10*3/uL RBC 4.25 (4.20-5.50) X10*6/uL Hgb 12.5 (12.0-16.0) g/dl Hct 37.9 (37.0-47.0) % MCV 89.2 (80.0-98.0) fL MCH 29.4 (27.0-33.0) pg MCHC 33.0 (31.0-35.0) g/dl RDW 13.1 (11.0-16.0) % Plt Count 208 (160-400) X10*3/uL MPV 10.3 (9.4-12.3) fL Immature Gran % (Auto) 0.4 (0.0-0.4) % Neut % (Auto) 74.9 H (45-73) % Lymph % (Auto) 17.6 L (20-40) % [place] % (Auto) 5.8 (2-11) % Eos % (Auto) 0.9 (0-4) % Baso % (Auto) 0.4 (0-2) % Lymph # (Auto) 1.4 (1.2-4.9) X10*3/uL [place] # (Auto) 0.5 (0.1-1.2) X10*3/uL Eos # (Auto) 0.1 (0.0-0.4) X10*3/uL Baso # (Auto) 0.0 (0.0-0.2) X10*3/uL Abs Immat Gran (auto) 0.03 (0.00-0.03) X10*3/uL Absolute Neuts (auto) 5.8 (2.0-8.3) x10*3/uL Absolute Nucleated RBC 0.000 (0.0-0.012) X10*3/uL Nucleated RBC % (auto) 0.0 (0.0-0.2) /100WBC Sodium 139 (135-145) mmol/L Potassium 4.0 (3.3-5.1) mmol/L Chloride 108 (96-108) mmol/L Carbon Dioxide 23 (22-29) mmol/L Anion Gap 12 (12-20) BUN 5 L (9-16) mg/dL Creatinine 0.75 (0.5-1.4) mg/dL Estim Creat Clear Calc 109.7 Estimated GFR > 60 Random Glucose 92 (60-115) mg/dL Calcium 9.5 (8.4-10.2) mg/dL Total Bilirubin 0.3 (0.0-1.0) mg/dL Direct Bilirubin 0.1 (0.0-0.5) mg/dL AST 13 (5-31) U/L ALT 13 (0-31) U/L Alkaline Phosphatase 65 (39-117) U/L Total Protein 6.8 (6.5-8.0) g/dL Albumin 3.9 (3.5-5.0) g/dL Beta HCG, Quant < 2 mIU/mL Urine Opiates Screen Not Detected (Not Detect) Urine Fentanyl Screen Not Detected (Not Detect) Ur Barbiturates Screen Not Detected (Not Detect) Ur Phencyclidine Scrn Not Detected (Not Detect) Ur Amphetamines Screen Not Detected (Not Detect) U Benzodiazepines Scrn Not Detected (Not Detect) Urine Cocaine Screen Not Detected (Not Detect) U Marijuana (THC) Screen POSITIVE H (Not Detect) COVID-19 (RAFAL) Negative (Negative) COVID-19 Clin Com See Note External Record Review External record reviewed: Inpatient record Chronic Conditions PTSD, schizoaffective disorder Discharge Plan Discharge Clinical Impression: Anxiety, Borderline personality disorder, Schizoaffective disorder, depressive type Patient Disposition: Still a Patient Prescriptions: No Action haloperidol 5 mg tablet 1 tab PO TID PRN (Reason: Agitation) diphenhydramine HCl [Banophen] 50 mg capsule 2 cap PO BEDTIME hydroxyzine pamoate 50 mg capsule 1 cap PO BID PRN (Reason: Anxiety) zolpidem 10 mg tablet 1 tab PO BEDTIME acetaminophen 500 mg tablet 1 tab PO Q6H PRN (Reason: pain) albuterol sulfate [ProAir HFA] 90 mcg/actuation HFA aerosol inhaler 2 puff inhalation Q6H PRN (Reason: Wheezing) omeprazole 20 mg Tablet,Delayed Release (Dr/Ec) 20 mg PO DAILY@0630 lithium carbonate 300 mg tablet 300 mg PO BID clonidine HCl 0.1 mg tablet 1 tab PO TID benztropine 0.5 mg tablet 1 tab PO BID haloperidol decanoate 100 mg/mL solution 75 mg IM Q4W Rx Instructions: NEXT DOSE: 07/09/23 duloxetine 60 mg capsule,delayed release(DR/EC) 1 cap PO DAILY fluticasone propion-salmeterol [Advair HFA] 230-21 mcg/actuation HFA aerosol inhaler 2 puff INHALATION BID prazosin 1 mg capsule 1 mg PO BEDTIME Protocol: Hold for SBP< HOLD for SBP < : 90 fluticasone propionate 50 mcg/actuation spray,suspension 2 spray intranasal DAILY trazodone 100 mg tablet 200 mg PO BEDTIME lorazepam 1 mg tablet 1 mg PO TID PRN (Reason: Anxiety) prazosin 5 mg capsule 15 mg PO BEDTIME Rx Instructions: TAKE WITH 1 MG FOR TOTAL DOSE 16MG PM
[2023-09-04] MEDS: diazePAM 10 MG/2 ML CARTRIDGE IM (17:12)
[2023-09-04] MEDS: Haloperidol Lactate 5 MG/ML VIAL IM (17:13)
[2023-09-04] MEDS: diphenhydrAMINE HCL 50 MG/ML VIAL 25 MG IM (17:13)
--- NOTE | 2023-09-04 18:17 | MHC.EDTECH ---
Patient given dinner tray
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
[2023-09-04 19:02] LABS: MANUAL DIFF FLAG NO
[2023-09-04 19:04] LABS: Basophils Percent Auto 0.4 % (0-2); Eosinophils Absolute Auto 0.1 X10*3/uL (0.0-0.4); Eosinophils Percent Auto 0.9 % (0-4); Hematocrit 37.9 % (37.0-47.0); Hemoglobin 12.5 g/dl (12.0-16.0); Imm Gran Abs Auto 0.03 X10*3/uL (0.00-0.03); Imm Gran Pct Auto 0.4 % (0.0-0.4); Lymphocytes Absolute Auto 1.4 X10*3/uL (1.2-4.9); Lymphocytes Percent Auto 17.6 % (20-40); Mean Corpuscular Hemoglobin 29.4 pg (27.0-33.0); Mean Corpuscular Volume 89.2 fL (80.0-98.0); Mean Platelet Volume 10.3 fL (9.4-12.3); Monocytes Absolute Auto 0.5 X10*3/uL (0.1-1.2); Monocytes Percent Auto 5.8 % (2-11); Neutrophils Absolute Auto 5.8 x10*3/uL (2.0-8.3); Neutrophils Percent Auto 74.9 % (45-73); Platelet Count 208 X10*3/uL (160-400); Red Blood Count 4.25 X10*6/uL (4.20-5.50); Red Cell Distribution Width 13.1 % (11.0-16.0); White Blood Count 7.7 X10*3/uL (4.8-10.8)
[2023-09-04 19:12] LABS: Amphetamine Screen Urine Not Detected (Not Detect); Barbiturates, Urine Not Detected (Not Detect); Benzodiazepines Screen Urine Not Detected (Not Detect); Cannabinoid Screen Urine POSITIVE (Not Detect); Cocaine Screen Urine Not Detected (Not Detect); Fentanyl, urine Not Detected (Not Detect); Opiate Screen Urine Not Detected (Not Detect); Phencyclidine Screen Urine Not Detected (Not Detect)
[2023-09-04 19:16] LABS: COVID-19 Test Negative (Negative); IDNOW Serial# 152EDE1D
[2023-09-04 19:18] LABS: Alanine Aminotransferase 13 U/L (0-31); Albumin Level 3.9 g/dL (3.5-5.0); Alkaline Phosphatase 65 U/L (39-117); Anion Gap 12 (12-20); Aspartate Amino Transferase 13 U/L (5-31); Bilirubin Direct 0.1 mg/dL (0.0-0.5); Bilirubin Total 0.3 mg/dL (0.0-1.0); Blood Urea Nitrogen 5 mg/dL (9-16); Calcium 9.5 mg/dL (8.4-10.2); Carbon Dioxide 23 mmol/L (22-29); Chloride 108 mmol/L (96-108); Creatinine Clr Calc Pharmacy 109.7; Estimated Glomerular Filt Rate > 60; Glucose Random 92 mg/dL (60-115); Sodium 139 mmol/L (135-145); Total Protein 6.8 g/dL (6.5-8.0)
[2023-09-04 19:25] LABS: HCG Quantitative < 2 mIU/mL
[2023-09-04 20:49] VITALS: BP 117/70; PULSE 99; RESP 18; TEMP 36.4; O2SAT 98
--- NOTE | 2023-09-04 20:57 | MHC.EDTECH ---
Patient went to bathroom
--- NOTE | 2023-09-04 21:45 | MHC.CARE ---
[facility] [phone]
--- NOTE | 2023-09-04 22:15 | PHA.MEDREC ---
Pharmacy Consult ? Medication Reconciliation Pharmacy has REVIEWED the medication reconciliation.
[2023-09-04] MEDS: LORazepam 1 MG TABLET PO (22:27)
[2023-09-04] MEDS: diphenhydrAMINE HCL 25 MG CAPSULE 100 MG PO (22:27)
[2023-09-04] MEDS: cloNIDine HCL 0.1 MG TABLET PO (22:27)
[2023-09-04] MEDS: Benztropine Mesylate 0.5 MG TABLET PO (22:27)
[2023-09-04] MEDS: Lithium Carbonate 300 MG CAPSULE PO (22:27)
[2023-09-04] MEDS: HaloperidoL 5 MG TABLET PO (22:27)
[2023-09-04] MEDS: Prazosin HCL 5 MG CAPSULE 15 MG PO (22:31)
[2023-09-04] MEDS: Prazosin HCL 1 MG CAPSULE PO (22:32)
[2023-09-04] MEDS: traZODone HCL 100 MG TABLET 200 MG PO (22:32)
[2023-09-04] MEDS: Zolpidem Tartrate 5 MG TABLET PO (22:32)
--- NOTE | 2023-09-04 23:37 | PC.NURSE ---
Took report from off-going RN. Pt is a 38 y/o female who is here for increased aggression. Pending evaluation with care team. Was restrained at 1715 hours. Possible discharge pending for the AM back to intermediate. Pt is cooperative and easily arouable with verbal stimuli. Pt changes position in bed independently as desired and verbalizes needs as they arise. Will continue to monitor and 1:1 observation at the bedside will continue.
--- NOTE | 2023-09-05 03:05 | PC.NURSE ---
Pt is sleeping in bed, appears comfortable, and changes position as desired. Pt is easily arousable with verbal stimuli. 1:1 remains at bedside for safety. Will continue to monitor and note any changes.
--- NOTE | 2023-09-05 05:47 | PC.NURSE ---
Pt is sleeping, appears comfortable. Changes positions independently as desired. Easily arousable with verbal stimuli. Will continue to monitor and note any changes. 1:1 observation continues at bedside. Bed search is ongoing.
[2023-09-05] MEDS: Omeprazole 20 MG CAPSULE.DR PO (07:28)
--- NOTE | 2023-09-05 07:28 | PC.NURSE ---
PT SLEEPING AT THIS TIME, RESP EVEN NONLABOURED. REMAINS ON 1:1 IN POD.
[2023-09-05] MEDS: Lithium Carbonate 300 MG CAPSULE PO (09:27)
[2023-09-05] MEDS: Benztropine Mesylate 0.5 MG TABLET PO (09:27)
[2023-09-05] MEDS: Fluticasone/Vilanterol 200/25 BLST.W.DEV 1 PUFF INHALE (09:27)
[2023-09-05] MEDS: DULoxetine HCl 60 MG CAPSULE.DR PO (09:27)
[2023-09-05] MEDS: cloNIDine HCL 0.1 MG TABLET PO ×2 (09:28→15:42)
--- NOTE | 2023-09-05 12:08 | PC.NURSE ---
PT PACING REQUESTING TO LEAVE, PER CARE TEAM NOTES PT MAY RETURN PENDING RE-EVAL THIS AM. THEY HAD CALL OUTS FOR CARE TEAM THIS AM, UNCLEAR WHO WILL BE COMING IN AND WHEN. THIS HAS BEEN EXPLAINED NUMEROUS TIMES TO CRYSTAL. WATT, REMAINS ON 1:1.
--- NOTE | 2023-09-05 14:51 | PC.NURSE ---
PT RETURNED BACK TO HER ROOM AFTER REPEATED REQUESTS TO DO SO, HAS BEEN SLEEPING, REMAINS ON 1:1. MALIA FROM CARE TEAM WORKING ON CASE FROM HOME REGARDING POSSIBLE DISCHARGE, RESPITE CURRENTLY LOBBYING TO PT ADMISSION TO INPT. PT HAS NOT REQUIRED PHYSICAL OR CHEMICAL RESTRAINT SINCE YESTERDAY AFTERNOON.
--- NOTE | 2023-09-05 14:52 | MHC.CARE ---
CARE Team speaks with accreditation manager supervisor quilting for the [facility] respite program. She reports that pt came to their unit in June due to pt needing to be transferred to a new [facility]. This has not been a smooth transition and there is no current timeline of when pt will be leaving the respite unit for a permanent placement. Pt has reportedly been struggling with self harm, bringing glass into the program and cutting her neck and other body parts. According to NINA Barreto who has been caring for pt in the Behavioral Health pod, pt has been requesting discharge [facility] if she is safe to do so and refer her to [facility] through their agency. Plan is for a CARE Team clinician to meet with pt and follow up on risk/safety planning. Pt will be given the option to remain in the ED for [facility] bedsearch. NINA Barreto will assess pt's head and neck for injury.
[2023-09-05 15:37] VITALS: BP 121/68; PULSE 84; RESP 18; TEMP 36.6; O2SAT 97
--- NOTE | 2023-09-05 16:23 | PC.NURSE ---
SUPERFICIAL SCRATCHES & REDNESS NOTED ON R SIDE OF NECK, DO NOT APPEAR TO HAVE BLED AT ANY POINT, NOR SCABBED OVER. PT CONFIRMS SHE COMPLETED THIS AT RESPITE OUT OF ANGER. THIS WAS NOT A SERIOUS ATTEMPT AT SUICIDE NOR SELF HARM. NO OPEN AREAS ON HEAD NOTED EITHER. PT CONTINUES TO REUQEST RETURN TO RESPITE, HAS BEEN CALM AND COOPERATIVE, MAINTAINING GOOD EYE CONTACT AND CONVERSATIONAL WITH STAFF OVER THE PAST 2 HRS.
== END 2023-09-05 17:33 | disposition home or self-care (01) ==
PROVIDERS: Emergency Provider Emergency Medicine Emergency Medical Services
DX: F41.9 Anxiety disorder, unspecified (principal); F60.3 Borderline personality disorder; F25.0 Schizoaffective disorder, bipolar type; R45.851 Suicidal ideations; R45.1 Restlessness and agitation; Z11.52 Encounter for screening for COVID-19; F43.10 Post-traumatic stress disorder, unspecified; F17.210 Nicotine dependence, cigarettes, uncomplicated; E66.9 Obesity, unspecified; Z68.42 Body mass index [BMI] 45.0-49.9, adult; Z91.52 Personal history of nonsuicidal self-harm; Z79.899 Other long term (current) drug therapy
CPT/HCPCS: 36415; 80048; 80076; 80307; 84702; 85025; 87635; 96372; 99285; J1200; J1630; J3360; S9485

== ENCOUNTER 2023-09-10 07:00 | Day surgery (SDC) | payer OTHER, SELFPAY ==
[2023-09-10] VITALS (7 sets, daily range): BP systolic 136–162; BP diastolic 84–102; PULSE 89–100; RESP 16–19; TEMP 36.3–37.3; O2SAT 95–98; BMI 45.4
--- NOTE | 2023-09-10 07:20 | MHC.SHP ---
Pre-Procedural Eval Section A Date of Service: 09/10/23 The patient is an INPATIENT: No Changes since office visit: No Cold of Flu in the past 2 weeks, No New Medical Problems, No Changes in Medication and No Patient answered all questions The History & Physical has been completed within 30 days and I have reviewed it.: Yes Section B Chief Complaint: Major depressive disorder, recurrent, severe with Details of Present Illness: Chronic dysphoria but recently much better, no active SI or self-harming behavior. Relevant Family History (Specify if Yes): Yes Relevant Social History: None Present Medications: see Short Stay Collaborative assessment Medical History: No relevant PMH History of Previous Operations: Relevant previous surgery/procedure and date(s) Allergies: Allergies Allergy/AdvReac Type Severity Reaction Status Date / Time carbamazepine [From TEGRETOL] AdvReac Mild Nausea and Verified 09/10/23 07:15 Vomiting topiramate [From Topamax] AdvReac Mild Nausea and Verified 09/10/23 07:15 Vomiting Review of Systems Sugical H&P ROS: Negative: Constitution, Cardiovascular, Respiratory, Neurological, Psychiatric, Hem-Onc, Allergic/Immunologic, Gastrointestinal, Genitourinary, Musculoskeletal, Integumentary, Endocrine and Eyes/Ears/Nose/Throat Exam Surgical H&P Exam: Normal: HEENT, Normal: Heart, Normal: Lungs, Normal: Extremities, Normal: Abdomen, Normal: Skin and Normal: Neurological Plan Diagnosis/Plan: Unchanged I have reviewed the history and physical and performed a pertinent physical examination on my patient. No changes have occurred unless specified. Time Spent With Patient Time: Total time managing care of this patient today __15__ minutes.
--- NOTE | 2023-09-10 09:51 | HO.ECTPROC ---
ECT Procedure Note Diagnosis/Treatment Date of Service: 09/10/23 Diagnosis: Major Depressive Disorder and Other (ptsd) Previous ECT Date: 08/30/23 Treatment: Maintenance Interval Clinical Notes: Patient has been moved to a new shelter setting episodes dysphoria intermittent SIB continues to feel ECT is helpful no cognitive impairment noted or complaints Time: Total time managing care of this patient today 30____ minutes. ECT Settings Device: THYMATRON DGx Electrode Placement: Bitemporal Program/Pulse Width: 0.50 Energy Percent: 100 Seizure Duration By EEG (in seconds): 19 Medications Administration General Anesthetic: Etomidate (16) Muscle Relaxant: Succinylcholine (100) Ancillary Medications Analgesics: Torodol - Pre ECT Anti-emetics: Zofran - Pre ECT Airway Management Airway Management: Bag Mask Ventilation Treatment Recommendations Notes: Lower etomidate 14 mg as tolerated continue to evaluate efficacy of ECT in this patient for treatment of depression PTSD borderline personality disorder which appears to decreased episodes requiring admission. Patient is also now in reportedly regular counseling Pt Tolerated Procedure w/o Issue: Yes
== END 2023-09-10 11:18 | disposition home or self-care (01) ==
PROVIDERS: Visit Provider Psychiatry & Neurology Psychiatry
PROC: (CPT 90870; principal; 2023-09-10 07:00)
DX: F33.9 Major depressive disorder, recurrent, unspecified (principal); F43.12 Post-traumatic stress disorder, chronic; R45.88 Nonsuicidal self-harm; F41.1 Generalized anxiety disorder; F60.3 Borderline personality disorder; J44.9 Chronic obstructive pulmonary disease, unspecified; R91.8 Other nonspecific abnormal finding of lung field; G47.33 Obstructive sleep apnea (adult) (pediatric); E66.01 Morbid (severe) obesity due to excess calories; Z68.43 Body mass index [BMI] 50.0-59.9, adult; Z79.51 Long term (current) use of inhaled steroids; Z79.899 Other long term (current) drug therapy; Z88.8 Allergy status to other drugs, medicaments and biological substances; F17.210 Nicotine dependence, cigarettes, uncomplicated
CPT/HCPCS: 90870; J0330; J1885; J2405; S9485

== ENCOUNTER → 2023-09-10 07:00 | Outpatient (BNV) | payer OTHER, SELFPAY | PROVIDERS: Visit Provider Psychiatry & Neurology Psychiatry | DX: F33.2 Major depressive disorder, recurrent severe without psychotic features (principal) | CPT/HCPCS: 90870 ==

== ENCOUNTER 2023-09-15 21:50 | Emergency (ER) | payer OTHER, SELFPAY ==
--- NOTE | ~2023-09-15 | XR_ITS ---
EXAMINATION: XR KNEE, RIGHT CLINICAL INFORMATION: Arthritis with effusion COMPARISON: Knee radiographs 11/14/2020 TECHNIQUE: Four views of the right knee. FINDINGS: Mild tricompartmental osteoarthritis. No joint effusion. No acute fracture or dislocation. Slight lateral positioning of the patella. No radiopaque foreign bodies. XR/XR knee RT 3V IMPRESSION: 1. No acute fracture, dislocation, or joint effusion. 2. Slight lateral positioning of the patella may represent lateral patellar tracking.
[2023-09-15 22:04] VITALS: BP 134/82; PULSE 120; BMI 29.2
[2023-09-15 22:10] VITALS: BP 128/81; PULSE 110; RESP 14; TEMP 36.8; O2SAT 98
--- NOTE | 2023-09-15 22:28 | ED_ITS ---
HPI - General Adult General Chief complaint: Headache Stated complaint: HEAD AND NECK PAIN Time Seen by Provider: 09/15/23 22:24 Source: patient Mode of arrival: EMS Limitations: no limitations History of Present Illness HPI narrative: Patient with schizoaffective disorder with intentional self-harm anxiety PTSD borderline personality been here multiple times apparently banged her head to the wall around 16:30 with superficial abrasion no loss of consciousness complaining of mild headache. Mentally feels stable at this time also complaining of right knee pain which is going on for longtime time Related Data Home Medications Medication Instructions Recorded Confirmed acetaminophen 500 mg tablet 1 tab PO Q6H PRN pain 08/14/22 09/04/23 albuterol sulfate 90 mcg/actuation 2 puff inhalation Q6H PRN Wheezing 08/14/22 09/04/23 aerosol inhaler (ProAir HFA) diphenhydramine HCl 50 mg capsule 2 cap PO BEDTIME 08/14/22 09/04/23 (Banophen) haloperidol 5 mg tablet 1 tab PO TID PRN Agitation 08/14/22 09/04/23 hydroxyzine pamoate 50 mg capsule 1 cap PO BID PRN Anxiety 08/14/22 09/04/23 omeprazole 20 mg tablet,delayed 20 mg PO DAILY@0630 08/14/22 09/04/23 release zolpidem 10 mg tablet 1 tab PO BEDTIME 08/14/22 09/04/23 fluticasone propionate 230 2 puff inhalation BID 10/07/22 09/04/23 mcg-salmeterol 21 mcg/actuation HFA inhaler (Advair HFA) benztropine 0.5 mg tablet 1 tab PO BID 10/26/22 09/04/23 clonidine HCl 0.1 mg tablet 1 tab PO TID 10/26/22 09/04/23 duloxetine 60 mg capsule,delayed 1 cap PO DAILY 10/26/22 09/04/23 release haloperidol decanoate 100 mg/mL 75 mg IM Q4W 10/26/22 09/04/23 intramuscular solution lithium carbonate 300 mg tablet 300 mg PO BID 10/26/22 09/04/23 lorazepam 1 mg tablet 1 mg PO TID PRN Anxiety 03/25/23 09/04/23 prazosin 5 mg capsule 15 mg PO BEDTIME 03/25/23 09/04/23 fluticasone propionate 50 2 spray intranasal DAILY 06/17/23 09/04/23 mcg/actuation nasal spray,suspension prazosin 1 mg capsule 1 mg PO BEDTIME 06/17/23 09/04/23 trazodone 100 mg tablet 200 mg PO BEDTIME 06/17/23 09/04/23 Allergies Allergy/AdvReac Type Severity Reaction Status Date / Time carbamazepine [From TEGRETOL] AdvReac Mild Nausea and Verified 09/10/23 07:15 Vomiting topiramate [From Topamax] AdvReac Mild Nausea and Verified 09/10/23 07:15 Vomiting Review of Systems Review of Systems: Yes all other systems are reviewed and are negative PMFSH Past Medical History Medical History History of electroconvulsive therapy COVID-19 COVID-19 Sprain of left foot Chronic post-traumatic stress disorder (PTSD) COPD (chronic obstructive pulmonary disease) Increased BMI GERD (gastroesophageal reflux disease) Recurrent major depression-severe Acute post-traumatic stress disorder Injury, self-inflicted Suicidal ideation Self-harming behavior Intentional self-harm Suicidal ideation Borderline personality disorder Schizoaffective disorder Adjustment disorder Asthma Depression Anxiety PTSD (post-traumatic stress disorder) Family History Family History Mother Brain cancer Other No family history of cardiac disease Social History Social History Household Members: Other Household Members Other:: [facility] Housing: Other Housing Other:: [facility] Do you presently have visiting nurse or other home services: No Unable to assess alcohol history related to: Refusing to respond Alcohol intake: never Comment: 1:1 sitter Patient Tobacco Use Status: Former Tobacco user Quit Date: 02-19-21 Tobacco use type: Cigarette Cigarette Packs Per Day: 0.5 Cigarettes Per Day: 4 Years Smoked: 20 Smoked in Last 30 Days: Yes e-Cigarette/Vaping Use: Never Used Second Hand Smoke Exposure: No Use of substances other than those prescribed or required for medical reasons: No Substance Use Type: Marijuana Advance Directives: No Advance Directives Information Provided: No Patient : No service: No Sexual orientation: Straight/Heterosexual Physical Exam ED Vital Signs: Vital Signs - 24 hr 09/15/23 22:10 09/16/23 05:41 Temperature 98.3 F 97.6 F Pulse Rate 110 H 97 Respiratory Rate 14 14 Blood Pressure 128/81 118/62 Pulse Oximetry 98 98 Oxygen Delivery Method Room Air Room Air BMI result Body Mass Index 29.2 Appearance: Alert. Oriented X3. No acute distress. Eyes: PERRLA, No Nystagmus ENT: Pharynx normal. Oral Mucosa moist superficial abrasion on forehead Neck: Normal inspection. Neck supple. CVS: Normal heart rate and rhythm. Pulses normal. Respiratory: No respiratory distress. Equal air entry bilateral, Abdomen: Soft and nontender. Bowel sounds are present, Skin: Skin warm and dry. Normal skin color. Normal skin turgor. Extremities: No lower extremity edema. No calf tenderness right knee with small effusion good range of movement Neuro: Oriented X 3. No motor deficit. No sensory deficit.No cerebellar signs , cranial nerves II-XII intact Medications Administered Discontinued Medications Generic Name Dose Route Start Last Admin Trade Name Freq PRN Reason Stop Dose Admin Ibuprofen 600 mg 09/15/23 22:28 09/16/23 00:04 Ibuprofen 600 Mg Tablet PO 09/15/23 22:29 600 mg ONCE ONE Administration Medical Decision Making Medical Decision Making [facility] Narrative: Patient with minor closed head injury no signs of significant injury no loss of consciousness no seizures no vomiting no indication for CT scan of the head patient mild also patient complaining of right knee pain she has arthritis Differential Diagnosis Differential Diagnoses: The differential diagnosis associated with the presentation includes Closed head injury/arthritis of the knee/SDH/SAH Independent Interpretation I performed an independent interpretation of an: Plain X-Ray Radiology Impression Discussion of test interpretation with radiology: I have reviewed the radiologist's reading. Discharge Plan Discharge Clinical Impression: Minor closed head injury, Arthritis of knee, right Patient Disposition: Home, Self-Care Instructions: Osteoarthritis (ED), Head Injury (ED) Additional Instructions: Tylenol/Motrin for knee pain as needed Follow with ortho Prescriptions: No Action haloperidol 5 mg tablet 1 tab PO TID PRN (Reason: Agitation) diphenhydramine HCl [Banophen] 50 mg capsule 2 cap PO BEDTIME hydroxyzine pamoate 50 mg capsule 1 cap PO BID PRN (Reason: Anxiety) zolpidem 10 mg tablet 1 tab PO BEDTIME acetaminophen 500 mg tablet 1 tab PO Q6H PRN (Reason: pain) albuterol sulfate [ProAir HFA] 90 mcg/actuation HFA aerosol inhaler 2 puff inhalation Q6H PRN (Reason: Wheezing) omeprazole 20 mg Tablet,Delayed Release (Dr/Ec) 20 mg PO DAILY@0630 lithium carbonate 300 mg tablet 300 mg PO BID clonidine HCl 0.1 mg tablet 1 tab PO TID benztropine 0.5 mg tablet 1 tab PO BID haloperidol decanoate 100 mg/mL solution 75 mg IM Q4W Rx Instructions: NEXT DOSE: 07/09/23 duloxetine 60 mg capsule,delayed release(DR/EC) 1 cap PO DAILY fluticasone propion-salmeterol [Advair HFA] 230-21 mcg/actuation HFA aerosol inhaler 2 puff INHALATION BID prazosin 1 mg capsule 1 mg PO BEDTIME Protocol: Hold for SBP< HOLD for SBP < : 90 fluticasone propionate 50 mcg/actuation spray,suspension 2 spray intranasal DAILY trazodone 100 mg tablet 200 mg PO BEDTIME lorazepam 1 mg tablet 1 mg PO TID PRN (Reason: Anxiety) prazosin 5 mg capsule 15 mg PO BEDTIME Rx Instructions: TAKE WITH 1 MG FOR TOTAL DOSE 16MG PM Interventions: ED Discharge Assessment Last Done: 09/16/23 06:27 Discharge Date/Time: 09/16/23 06:28
[2023-09-16] MEDS: Ibuprofen 600 MG TABLET PO (00:04)
--- NOTE | 2023-09-16 00:05 | PC.NURSE ---
pt reports R knee pain with decreased mobility, 02/22. MD at bedside. Pt to have an x-ray of the right knee. Medicated as ordered. Tolerated well. Pt is unable to provide a urine sample at this time.
[2023-09-16 05:41] VITALS: BP 118/62; PULSE 97; RESP 14; TEMP 36.4; O2SAT 98
--- NOTE | 2023-09-16 05:49 | PC.NURSE ---
Multiple failed attempts at contacting [facility] where pt is returning as pt is discharged. Pt to return to [facility] via [facility].
== END 2023-09-16 06:28 | disposition home or self-care (01) ==
PROVIDERS: Emergency Provider Internal Medicine; PCP Pediatrics
DX: S09.90XA Unspecified injury of head, initial encounter (principal); W22.09XA Striking against other stationary object, initial encounter; M17.11 Unilateral primary osteoarthritis, right knee; Z91.52 Personal history of nonsuicidal self-harm; Y93.9 Activity, unspecified; Y92.199 Unspecified place in other specified residential institution as the place of occurrence of the external cause; Y99.9 Unspecified external cause status
CPT/HCPCS: 73562; 99283; 99284

== ENCOUNTER 2023-09-22 11:22 | Day surgery (SDC) | payer OTHER, SELFPAY ==
--- NOTE | 2023-09-22 12:38 | P.CONAN_ITS ---
HPI - Anesthesia Eval Consult details Narrative: 38 yo female patient for ECT PMFSH Active Problems Active Problems: All Active Problems (Updated 09/22/23 @ 12:35 by Casi Munoz MD) Intentional self-harm (Acute) COPD (chronic obstructive pulmonary disease) (Acute) Asthma (Acute) Adjustment disorder (Acute) Anxiety (Acute) Injury of ligament of right knee (Acute) Sprain of anterior cruciate ligament of right knee (Acute) Hernia (Chronic) Schizoaffective disorder, depressive type (Chronic) Chronic post-traumatic stress disorder (PTSD) (Chronic) Increased BMI (Acute) GERD (gastroesophageal reflux disease) (Acute) Borderline personality disorder (Chronic) Past Medical History Medical History History of electroconvulsive therapy COVID-19 COVID-19 Sprain of left foot Chronic post-traumatic stress disorder (PTSD) COPD (chronic obstructive pulmonary disease) Increased BMI GERD (gastroesophageal reflux disease) Recurrent major depression-severe Acute post-traumatic stress disorder Injury, self-inflicted Suicidal ideation Self-harming behavior Intentional self-harm Suicidal ideation Borderline personality disorder Schizoaffective disorder Adjustment disorder Asthma Depression Anxiety PTSD (post-traumatic stress disorder) Family History Family History Mother Brain cancer Other No family history of cardiac disease Family history of problems with anesthesia: No Surgical History History of Problems with Anesthesia: No Social History Social History Household Members: Other Household Members Other:: skilled nursing Housing: Other Housing Other:: skilled nursing Do you presently have visiting nurse or other home services: No Unable to assess alcohol history related to: Refusing to respond Alcohol intake: never Comment: 1:1 sitter Patient Tobacco Use Status: Former Tobacco user Quit Date: 02-19-21 Tobacco use type: Cigarette Cigarette Packs Per Day: 0.5 Cigarettes Per Day: 4 Years Smoked: 20 e-Cigarette/Vaping Use: Never Used Second Hand Smoke Exposure: No Substance Use Type: Marijuana Advance Directives: No Advance Directives Information Provided: Yes service: No Sexual orientation: Straight/Heterosexual Meds Allergies Allergy/AdvReac Type Severity Reaction Status Date / Time carbamazepine [From TEGRETOL] AdvReac Mild Nausea and Verified 09/10/23 07:15 Vomiting topiramate [From Topamax] AdvReac Mild Nausea and Verified 09/10/23 07:15 Vomiting Active Medications: Current Medications Acetaminophen (Acetaminophen 325 Mg Tablet) 650 mg PO ONCE PRN PRN Reason: Pain, Mild (Pain Scale 1-3) Lactated Ringer's (Lr) 1,000 mls @ 50 mls/hr IVCONT .Q20H SULEIMAN Ondansetron HCl (Ondansetron Hcl 4 Mg/2 Ml Vial) 4 mg IVPUSH ONCE PRN PRN Reason: Nausea and Vomiting Home Medications Medication Instructions Recorded Confirmed Last Taken Type acetaminophen 500 mg tablet 1 tab PO Q6H PRN pain 08/14/22 09/04/23 03/13/23 History albuterol sulfate 90 mcg/actuation 2 puff inhalation Q6H PRN Wheezing 08/14/22 09/04/23 03/13/23 History aerosol inhaler (ProAir HFA) diphenhydramine HCl 50 mg capsule 2 cap PO BEDTIME 08/14/22 09/04/23 07/21/23 20:00 History (Banophen) haloperidol 5 mg tablet 1 tab PO TID PRN Agitation 08/14/22 09/04/23 03/13/23 History hydroxyzine pamoate 50 mg capsule 1 cap PO BID PRN Anxiety 08/14/22 09/04/23 03/13/23 History omeprazole 20 mg tablet,delayed 20 mg PO DAILY@0630 08/14/22 09/04/23 07/21/23 20:00 History release zolpidem 10 mg tablet 1 tab PO BEDTIME 08/14/22 09/04/23 07/21/23 20:00 History fluticasone propionate 230 2 puff inhalation BID 10/07/22 09/04/23 07/22/23 08:00 History mcg-salmeterol 21 mcg/actuation HFA inhaler (Advair HFA) benztropine 0.5 mg tablet 1 tab PO BID 10/26/22 09/04/23 07/22/23 08:00 History clonidine HCl 0.1 mg tablet 1 tab PO TID 10/26/22 09/04/23 07/22/23 14:00 History duloxetine 60 mg capsule,delayed 1 cap PO DAILY 10/26/22 09/04/2307/22/23 08:00 History release haloperidol decanoate 100 mg/mL 75 mg IM Q4W 10/26/22 09/04/23 08/25/23 History intramuscular solution lithium carbonate 300 mg tablet 300 mg PO BID 10/26/22 09/04/23 07/22/23 08:00 History lorazepam 1 mg tablet 1 mg PO TID PRN Anxiety 03/25/23 09/04/23 Unknown History prazosin 5 mg capsule 15 mg PO BEDTIME 03/25/23 09/04/23 07/21/23 20:00 History fluticasone propionate 50 2 spray intranasal DAILY 06/17/23 09/04/23 07/22/23 08:00 History mcg/actuation nasal spray,suspension prazosin 1 mg capsule 1 mg PO BEDTIME 06/17/23 09/04/23 07/21/23 20:00 History trazodone 100 mg tablet 200 mg PO BEDTIME 06/17/23 09/04/23 07/21/23 20:00 History Exam Height,Weight and Vital Signs: Height 4 ft 11 in Weight 99.79 kg Vital Signs Temp Pulse Resp BP Pulse Ox O2 Del Method 09/22/23 12:41 97.5 F 106 H 20 150/105 H 99 Room Air Airway Mallampati Class: III TM Dist: >3cm Neck ROM: Full Loose/Missing/Broken Teeth: Yes (Missing and broken teeth) Heart: RRR Lungs: CTAB Assessment and Plan Assessment Anesthesia Assessment: Anesthesia Plan Discussed and Chart Reviewed Final Anesthetic Review Family History of Problems with Anesthesia: No History of Problems with Anesthesia: No NPO: Yes ASA Class: III Final Preanesthetic Review: No Changes in Pt Med Stat, Meds/Allgs Chart Reviewed, Consent Obtained/Reviewed and Anes Risks/Benef Reviewed Patient Risk: Intermediate Procedure Risk: Intermediate Assessment/Block/Sedation in SS: Assess/Block/Sedation-SS Anesthetic Plan Anesthetic Plan: GA Disposition: Standard PACU
[2023-09-22 12:41] VITALS: BP 150/105; PULSE 106; RESP 20; TEMP 36.4; O2SAT 99; BMI 44.4
--- NOTE | 2023-09-22 13:03 | MHC.SHP ---
Pre-Procedural Eval Section A - 24 Hr Update-Section A only Date of Service: 09/22/23 The patient is an INPATIENT: No Changes since office visit: No Cold of Flu in the past 2 weeks, No New Medical Problems, No Changes in Medication and No Patient answered all questions The patient has been examined within 24 hours of the surgical procedure. The History & Physical has been completed within 30 days and I have reviewed it.: Yes Section B - Complete if H&P > 30 days Chief Complaint: depression Allergies: Allergies Allergy/AdvReac Type Severity Reaction Status Date / Time carbamazepine [From TEGRETOL] AdvReac Mild Nausea and Verified 09/10/23 07:15 Vomiting topiramate [From Topamax] AdvReac Mild Nausea and Verified 09/10/23 07:15 Vomiting Plan I have reviewed the history and physical and performed a pertinent physical examination on my patient. No changes have occurred unless specified. Time Spent With Patient Time: Total time managing care of this patient today ____ minutes.
--- NOTE | 2023-09-22 13:12 | HO.ECTPROC ---
ECT Procedure Note Diagnosis/Treatment Date of Service: 09/22/23 Diagnosis: Schizoaffective Disorder Previous ECT Date: 09/10/23 Treatment: Maintenance Interval Clinical Notes: The patient reported feeling much better, she is going to move back to her intermediate pretty soon. No side effects with the previous ECT. ECT done as usual, no complications, woke up well. Time: Total time managing care of this patient today _30___ minutes. ECT Settings Device: THYMATRON DGx Electrode Placement: Bitemporal Program/Pulse Width: 0.50 Energy Percent: 100 Seizure Duration By EEG (in seconds): 18 By Motor Observation (in seconds): 17 Medications Administration General Anesthetic: Etomidate (16) Muscle Relaxant: Succinylcholine (100) Ancillary Medications Analgesics: Torodol - Pre ECT Anti-emetics: Zofran - Pre ECT Airway Management Airway Management: Bag Mask Ventilation Treatment Recommendations No Changes Recommended: No change Pt Tolerated Procedure w/o Issue: Yes
[2023-09-22 13:18] VITALS: BP 158/96; PULSE 96; RESP 20; TEMP 37.6; O2SAT 97
[2023-09-22 13:23] VITALS: BP 144/95; PULSE 105; RESP 22; O2SAT 97
[2023-09-22 13:28] VITALS: BP 144/95; PULSE 105; RESP 22; O2SAT 97
[2023-09-22 13:33] VITALS: BP 140/83; PULSE 103; RESP 16; O2SAT 95
[2023-09-22 13:48] VITALS: BP 143/85; PULSE 101; RESP 20; TEMP 37.6; O2SAT 97
== END 2023-09-22 14:41 | disposition home or self-care (01) ==
PROVIDERS: Psychiatry & Neurology Psychiatry; Visit Provider Psychiatry & Neurology Psychiatry
PROC: (CPT 90870; principal; 2023-09-22 13:30)
DX: F25.1 Schizoaffective disorder, depressive type (principal); F43.12 Post-traumatic stress disorder, chronic; R45.88 Nonsuicidal self-harm; F41.1 Generalized anxiety disorder; F60.3 Borderline personality disorder; J44.9 Chronic obstructive pulmonary disease, unspecified; R91.8 Other nonspecific abnormal finding of lung field; G47.33 Obstructive sleep apnea (adult) (pediatric); E66.01 Morbid (severe) obesity due to excess calories; Z79.51 Long term (current) use of inhaled steroids; Z68.43 Body mass index [BMI] 50.0-59.9, adult; Z79.899 Other long term (current) drug therapy; Z88.8 Allergy status to other drugs, medicaments and biological substances
CPT/HCPCS: 90870; J0330; J1642; J1885; J2405

== ENCOUNTER → 2023-09-22 11:22 | Outpatient (BNV) | payer OTHER, SELFPAY | PROVIDERS: Visit Provider Psychiatry & Neurology Psychiatry | DX: F33.3 Major depressive disorder, recurrent, severe with psychotic symptoms (principal) | CPT/HCPCS: 90870 ==

== ENCOUNTER 2023-11-08 05:55 | Day surgery (SDC) | payer OTHER, SELFPAY ==
[2023-11-08] VITALS (7 sets, daily range): BP systolic 121–167; BP diastolic 72–95; PULSE 65–92; RESP 16–20; TEMP 36.3–36.5; O2SAT 96–99; BMI 43.4
--- NOTE | 2023-11-08 07:09 | MHC.SHP ---
Pre-Procedural Eval Section A - 24 Hr Update-Section A only Date of Service: 11/08/23 The patient is an INPATIENT: No Changes since office visit: No Cold of Flu in the past 2 weeks, No New Medical Problems, No Changes in Medication and No Patient answered all questions The patient has been examined within 24 hours of the surgical procedure. The History & Physical has been completed within 30 days and I have reviewed it.: Yes Section B - Complete if H&P > 30 days Chief Complaint: Major depressive disorder, recurrent, severe with Details of Present Illness: Long history of self-harming behavior, psychosis and depression, stable on ECT Relevant Family History (Specify if Yes): Yes Relevant Social History: Other (specify) (POOR social support, chronically placed on group homes and respite) Present Medications: see Short Stay Collaborative assessment Medical History: No relevant PMH History of Previous Operations: Relevant previous surgery/procedure and date(s) Allergies: Allergies Allergy/AdvReac Type Severity Reaction Status Date / Time carbamazepine [From TEGRETOL] AdvReac Mild Nausea and Verified 09/10/23 07:15 Vomiting topiramate [From Topamax] AdvReac Mild Nausea and Verified 09/10/23 07:15 Vomiting Review of Systems Sugical H&P ROS: Negative: Constitution, Cardiovascular, Respiratory, Neurological, Psychiatric, Hem-Onc, Allergic/Immunologic, Gastrointestinal, Genitourinary, Musculoskeletal, Integumentary, Endocrine and Eyes/Ears/Nose/Throat Exam Surgical H&P Exam: Normal: HEENT, Normal: Heart, Normal: Lungs, Normal: Extremities, Normal: Abdomen, Normal: Skin and Normal: Neurological Plan Diagnosis/Plan: Unchanged I have reviewed the history and physical and performed a pertinent physical examination on my patient. No changes have occurred unless specified. Time Spent With Patient Time: Total time managing care of this patient today __15__ minutes.
--- NOTE | 2023-11-08 07:11 | HO.ANESPROP2 ---
[facility] Active Problems Active Problems: All Active Problems (Updated 09/17/23 @ 00:01 by Adiel Sevilla) Intentional self-harm (Acute) COPD (chronic obstructive pulmonary disease) (Acute) Asthma (Acute) Adjustment disorder (Acute) Anxiety (Acute) Injury of ligament of right knee (Acute) Sprain of anterior cruciate ligament of right knee (Acute) Hernia (Chronic) Schizoaffective disorder, depressive type (Chronic) Chronic post-traumatic stress disorder (PTSD) (Chronic) Increased BMI (Acute) GERD (gastroesophageal reflux disease) (Acute) Borderline personality disorder (Chronic) Past Medical History Medical History History of electroconvulsive therapy COVID-19 COVID-19 Sprain of left foot Chronic post-traumatic stress disorder (PTSD) COPD (chronic obstructive pulmonary disease) Increased BMI GERD (gastroesophageal reflux disease) Recurrent major depression-severe Acute post-traumatic stress disorder Injury, self-inflicted Suicidal ideation Self-harming behavior Intentional self-harm Suicidal ideation Borderline personality disorder Schizoaffective disorder Adjustment disorder Asthma Depression Anxiety PTSD (post-traumatic stress disorder) Functional capacity: independent ambulation Patient : No Family History Family History Mother Brain cancer Other No family history of cardiac disease Family history of problems with anesthesia: No Surgical History History of Problems with Anesthesia: No Social History Social History Household Members: Other Household Members Other:: senior living Housing: Other Housing Other:: senior living Do you presently have visiting nurse or other home services: No Unable to assess alcohol history related to: Refusing to respond Alcohol intake: never Comment: 1:1 sitter Patient Tobacco Use Status: Former Tobacco user Quit Date: 02-19-21 Tobacco use type: Cigarette Cigarette Packs Per Day: 0.5 Cigarettes Per Day: 4 Years Smoked: 20 e-Cigarette/Vaping Use: Never Used Second Hand Smoke Exposure: No Substance Use Type: Marijuana Advance Directives: No Advance Directives Information Provided: Yes service: No Sexual orientation: Straight/Heterosexual Meds Allergies Allergy/AdvReac Type Severity Reaction Status Date / Time carbamazepine [From TEGRETOL] AdvReac Mild Nausea and Verified 09/10/23 07:15 Vomiting topiramate [From Topamax] AdvReac Mild Nausea and Verified 09/10/23 07:15 Vomiting Home Medications Medication Instructions Recorded Confirmed Last Taken Type acetaminophen 500 mg tablet 1 tab PO Q6H PRN pain 08/14/22 09/04/23 03/13/23 History albuterol sulfate 90 mcg/actuation 2 puff inhalation Q6H PRN Wheezing 08/14/22 09/04/23 03/13/23 History aerosol inhaler (ProAir HFA) diphenhydramine HCl 50 mg capsule 2 cap PO BEDTIME 08/14/22 09/04/23 07/21/23 20:00 History (Banophen) haloperidol 5 mg tablet 1 tab PO TID PRN Agitation 08/14/22 09/04/23 03/13/23 History hydroxyzine pamoate 50 mg capsule 1 cap PO BID PRN Anxiety 08/14/22 09/04/23 03/13/23 History omeprazole 20 mg tablet,delayed 20 mg PO DAILY@0630 08/14/22 09/04/23 07/21/23 20:00 History release zolpidem 10 mg tablet 1 tab PO BEDTIME 08/14/22 09/04/23 07/21/23 20:00 History fluticasone propionate 230 2 puff inhalation BID 10/07/22 09/04/23 07/22/23 08:00 History mcg-salmeterol 21 mcg/actuation HFA inhaler (Advair HFA) benztropine 0.5 mg tablet 1 tab PO BID 10/26/22 09/04/23 07/22/23 08:00 History clonidine HCl 0.1 mg tablet 1 tab PO TID 10/26/22 09/04/23 07/22/23 14:00 History duloxetine 60 mg capsule,delayed 1 cap PO DAILY 10/26/22 09/04/23 07/22/23 08:00 History release haloperidol decanoate 100 mg/mL 75 mg IM Q4W 10/26/22 09/04/23 08/25/23 History intramuscular solution lithium carbonate 300 mg tablet 300 mg PO BID 10/26/22 09/04/23 07/22/23 08:00 History lorazepam 1 mg tablet 1 mg PO TID PRN Anxiety 03/25/23 09/04/23 Unknown History prazosin 5 mg capsule 15 mg PO BEDTIME 03/25/23 09/04/23 07/21/23 20:00 History fluticasone propionate 50 2 spray intranasal DAILY 06/17/23 09/04/23 07/22/23 08:00 History mcg/actuation nasal spray,suspension prazosin 1 mg capsule 1 mg PO BEDTIME 06/17/23 09/04/23 07/21/23 20:00 History trazodone 100 mg tablet 200 mg PO BEDTIME 06/17/23 09/04/23 07/21/23 20:00 History Exam Height,Weight and Vital Signs: Height 4 ft 11 in Weight 97.522 kg Last Vital Signs Temp 97.4 F 11/08/23 06:25 Pulse 77 11/08/23 06:25 Resp 20 11/08/23 06:25 BP 132/73 11/08/23 06:25 Pulse Ox 99 11/08/23 06:25 O2 Del Method Room Air 11/08/23 06:25 Airway Mallampati Class: II TM Dist: >3cm Neck ROM: Full Heart: RRR Other: CTA Assessment and Plan Assessment Anesthesia Assessment: Anesthesia Plan Discussed Final Anesthetic Review Family History of Problems with Anesthesia: No History of Problems with Anesthesia: No ASA Class: III Final Preanesthetic Review: Meds/Allgs Chart Reviewed, Consent Obtained/Reviewed and Anes Risks/Benef Reviewed Patient Risk: Intermediate Procedure Risk: Low Anesthetic Plan Anesthetic Plan: GA Disposition: Standard PACU
--- NOTE | 2023-11-08 07:26 | HO.ECTPROC ---
ECT Procedure Note Diagnosis/Treatment Date of Service: 11/08/23 Diagnosis: Schizoaffective Disorder Previous ECT Date: 09/22/23 Treatment: Maintenance Interval Clinical Notes: The patient reported that she has moved to a [place] [facility], she smashed her head to a window more than a month ago due to conflicts with a peer, medically cleared. Denies side effects with the previous ECT. ECT done as usual, no complications, woke up as usual. Time: Total time managing care of this patient today ____ minutes. ECT Settings Device: THYMATRON DGx Electrode Placement: Bitemporal Program/Pulse Width: 0.50 Energy Percent: 100 Seizure Duration By EEG (in seconds): 14 (but there was seizure activity for 17s) By Motor Observation (in seconds): 0 Medications Administration General Anesthetic: Etomidate (16) Muscle Relaxant: Succinylcholine (100) Ancillary Medications Analgesics: Torodol - Pre ECT Anti-emetics: Zofran - Pre ECT Airway Management Airway Management: Bag Mask Ventilation Treatment Recommendations No Changes Recommended: No change Pt Tolerated Procedure w/o Issue: Yes
--- NOTE | 2023-11-08 07:55 | HO.POSTANES ---
Post Anesthesia Evaluation Post Anesthesia Evaluation Date of Service: 11/08/23 Vital Signs: Vital Signs Temp Pulse Resp BP Pulse Ox O2 Del Method O2 Flow Rate 11/08/23 07:31 97.7 F 65 16 131/95 H 99 Nasal Cannula with ETCO2 2 11/08/23 06:25 97.4 F 77 20 132/73 99 Room Air Anesthesia: General Mental Status: Awake Pain Control: Satisfactory Nausea/Vomiting: None Hydration: Adequate Anesthesia-Related Issues: No Anes. Related Issues
== END 2023-11-08 09:35 | disposition home or self-care (01) ==
PROVIDERS: Visit Provider Psychiatry & Neurology Psychiatry
PROC: (CPT 90870; principal; 2023-11-08 07:30)
DX: F25.1 Schizoaffective disorder, depressive type (principal); F43.12 Post-traumatic stress disorder, chronic; R45.88 Nonsuicidal self-harm; F41.1 Generalized anxiety disorder; F60.3 Borderline personality disorder; J44.9 Chronic obstructive pulmonary disease, unspecified; R91.8 Other nonspecific abnormal finding of lung field; G47.33 Obstructive sleep apnea (adult) (pediatric); E66.01 Morbid (severe) obesity due to excess calories; Z68.43 Body mass index [BMI] 50.0-59.9, adult; Z79.51 Long term (current) use of inhaled steroids; Z79.899 Other long term (current) drug therapy; Z88.8 Allergy status to other drugs, medicaments and biological substances; Z87.891 Personal history of nicotine dependence
CPT/HCPCS: 90870; J0330; J1642; J1885; J2405

== ENCOUNTER → 2023-11-08 05:55 | Outpatient (BNV) | payer OTHER, SELFPAY | PROVIDERS: Visit Provider Psychiatry & Neurology Psychiatry | DX: F33.3 Major depressive disorder, recurrent, severe with psychotic symptoms (principal) | CPT/HCPCS: 90870 ==

== ENCOUNTER 2023-11-30 16:53 | Emergency (ER) | payer OTHER, SELFPAY ==
[2023-11-30 17:03] VITALS: BP 117/86; PULSE 109; O2SAT 98; BMI 42.4
--- NOTE | 2023-11-30 17:16 | ED_ITS ---
HPI - Psych General Chief Complaint: Psychiatric Symptoms Stated Complaint: SI Time Seen by Provider: 11/30/23 17:09 Source: patient and EMS Mode of arrival: EMS Limitations: no limitations History of Present Illness HPI Narrative: 38-year-old female with known extensive psych history and multiple inpatient admission for mental health issues, patient with history of schizoaffective disorder, SI, PTSD, borderline personality disorder. Patient was feeling sorrowful for remembering her sister who was murdered in 2019 and her birthday is coming soon patient intentionally did a superficial cuts on her left wrist to relief her sadness, patient stated that she did not mean to hurt herself, no SI, no HI, no hallucination. CARE Team spoke with the pt's correction who have some concerns. Paige, on- call sort supervisor [phone], stated that the pt threatens to self harm every time the staff give another client attention. Paige stated that the pt has been on crisis alert for the past week due to SIB, i.e. hitting her head on a radiator and punching herself in the head. It is the anniversary of her sisters coming up and this time of year is always difficult for the pt and Paige agreed to this. Paige stated that the pt can return to the correction, on the condition that if the pt self harms again tonight or acts out, that she will be sent back to the ED for a full crisis assessment. CARE Team spoke to the pt about this and the pt agreed that she would not act out nor self harm again tonight. Related Data Home Medications ?Medication ?Instructions ?Recorded ?Confirmed acetaminophen 500 mg tablet 1 tab PO Q6H PRN pain 08/14/22 09/04/23 albuterol sulfate 90 mcg/actuation 2 puff inhalation Q6H PRN Wheezing 08/14/22 09/04/23 aerosol inhaler (ProAir HFA) diphenhydramine HCl 50 mg capsule 2 cap PO BEDTIME 08/14/22 09/04/23 (Banophen) haloperidol 5 mg tablet 1 tab PO TID PRN Agitation 08/14/22 09/04/23 hydroxyzine pamoate 50 mg capsule 1 cap PO BID PRN Anxiety 08/14/22 09/04/23 omeprazole 20 mg tablet,delayed 20 mg PO DAILY@0630 08/14/22 09/04/23 release zolpidem 10 mg tablet 1 tab PO BEDTIME 08/14/22 09/04/23 fluticasone propionate 230 2 puff inhalation BID 10/07/22 09/04/23 mcg-salmeterol 21 mcg/actuation HFA inhaler (Advair HFA) benztropine 0.5 mg tablet 1 tab PO BID 10/26/22 09/04/23 clonidine HCl 0.1 mg tablet 1 tab PO TID 10/26/22 09/04/23 duloxetine 60 mg capsule,delayed 1 cap PO DAILY 10/26/22 09/04/23 release haloperidol decanoate 100 mg/mL 75 mg IM Q4W 10/26/22 09/04/23 intramuscular solution lithium carbonate 300 mg tablet 300 mg PO BID 10/26/22 09/04/23 lorazepam 1 mg tablet 1 mg PO TID PRN Anxiety 03/25/23 09/04/23 prazosin 5 mg capsule 15 mg PO BEDTIME 03/25/23 09/04/23 fluticasone propionate 50 2 spray intranasal DAILY 06/17/23 09/04/23 mcg/actuation nasal spray,suspension prazosin 1 mg capsule 1 mg PO BEDTIME 06/17/23 09/04/23 trazodone 100 mg tablet 200 mg PO BEDTIME 06/17/23 09/04/23 Allergies Allergy/AdvReac Type Severity Reaction Status Date / Time carbamazepine [From TEGRETOL] AdvReac Mild Nausea and Verified 11/30/23 17:04 Vomiting topiramate [From Topamax] AdvReac Mild Nausea and Verified 11/30/23 17:04 Vomiting Review of Systems Review of Systems: All other systems are reviewed and are negative Constitutional: Reports as per HPI and Reports no additional constitutional complaints Eyes: Reports as per HPI and Reports no additional eye complaints Reports system reviewed and no additional complaints, except as documented Cardiovascular: Reports as per HPI and Reports no additional cardiovascular complaints Respiratory: Reports as per HPI and Reports no additional respiratory complaints Gastrointestinal: Reports as per HPI and Reports no additional gastrointestinal complaints Genitourinary: Reports no additional female genitourinary complaints Musculoskeletal: Reports no additional musculoskeletal complaints Skin/Breast: Reports system reviewed and no additional complaints, except as docu Psychiatric: Reports no additional psychiatric complaints Endocrine: Reports no additional endocrine complaints Hematologic/Lymphatic: Reports no additional hematologic/lymphatic complaints Allergic/Immunologic: Reports no additional allergic/immunologic complaints Reports system reviewed and no additional complaints, except as documented and Reports Abnormal speech present PMFSH Past Medical History Medical History Port-A-Cath in place History of electroconvulsive therapy COVID-19 COVID-19 Sprain of left foot Chronic post-traumatic stress disorder (PTSD) COPD (chronic obstructive pulmonary disease) Increased BMI GERD (gastroesophageal reflux disease) Recurrent major depression-severe Acute post-traumatic stress disorder Injury, self-inflicted Suicidal ideation Self-harming behavior Intentional self-harm Suicidal ideation Borderline personality disorder Schizoaffective disorder Adjustment disorder Asthma Depression Anxiety PTSD (post-traumatic stress disorder) Family History Family History Mother Brain cancer Other No family history of cardiac disease Social History Social History Household Members: Other Household Members Other:: correction Housing: Other Housing Other:: correction Do you presently have visiting nurse or other home services: No Unable to assess alcohol history related to: Refusing to respond Alcohol intake: never Comment: 1:1 sitter Patient Tobacco Use Status: Former Tobacco user Quit Date: 02-19-21 Tobacco use type: Cigarette Cigarette Packs Per Day: 0.5 Cigarettes Per Day: 4 Years Smoked: 20 e-Cigarette/Vaping Use: Never Used Second Hand Smoke Exposure: No Substance Use Type: Marijuana Advance Directives: No Advance Directives Information Provided: Yes service: No Sexual orientation: Straight/Heterosexual Physical Exam Vital Signs: Vital Signs: Last Vital Signs Temp 97.8 F 11/30/23 17:19 Pulse 102 H 11/30/23 17:19 Resp 18 11/30/23 17:19 BP 149/87 H 11/30/23 17:19 Pulse Ox 98 11/30/23 17:19 O2 Del Method Room Air 11/30/23 17:19 BMI result Body Mass Index 42.4 Vital signs have been reviewed and appear to be correct. Blood pressure elevated. Heart rate normal. Respiratory rate normal. Temperature normal. Oxygen saturation normal. Appearance: Alert. Oriented X3. No acute distress. Head: Normal external exam. Normocephalic. Atraumatic. No Bello signs noted. No raccoon eyes noted Eyes: PERRLA. EOMI. Conjunctiva and sclera normal. Eyelids normal. ENT: TM's Normal. Pharynx normal. Uvula midline. Moist mucous membranes. No trismus noted. No drooling noted. No muffled voice noted. Neck: Normal inspection. Neck supple. FROM. No adenopathy. Thyroid Normal. No meningeal signs. No neck mass noted. CVS: Normal heart rate and rhythm. Heart sound normal. No murmurs noted. Pulses normal throughout. Respiratory: No respiratory distress. Painless inspiration. Breath sounds normal. No wheezes/rales/rhonchi noted. Chest nontender. No accessory muscle usage noted or decreased air movement noted. Abdomen: Soft and nontender. Bowel sounds normal in all 4 quadrants. No distention noted. No organomegaly noted. No visible injury noted. Back: No CVA tenderness. Full range of motion noted. Skin: Skin warm and dry. Normal skin color. Normal skin turgor. No rashes/lesions/lacerations noted. Extremities: Left wrist with multiple superficial laceration self inflicted, no active bleeding, neurovascularly intact. Neuro: Oriented X 3. Cranial nerve exam: II-XII are grossly intact No motor deficit. No sensory deficit. Reflexes normal. Patient Orientation: Person, Place, Time and Situation, okay hygiene and grooming. Fair eye contact, attentive, no tics or tremors. Level of Consciousness: Awake, Appropriate and Alert Patient Behavior: Appropriate, Guarded, Cooperative and Anxious Mood Description: Constricted, Blunted and Apprehensive Affect Description: Constricted, Blunted and Apprehensive Patient Cognition Impaired: No Ability to Follow Directions: Excellent Speech Pattern: Clear, Appropriate and Spontaneous Speech, nonpressured, spontaneous with regular rate and rhythm, normal volume and prosody. No dysarthria. Memory Description: Intact, Immediate Intact and Short Term Intact Hallucinations: None Delusions: Not Present Thought Process: Intact Thought Content: positive for Intact, positive for Logical, denies Suicidal Ideation and denies Homicidal Ideation. Depressive Symptoms: Not present. Judgement and Insight: Limited but adequate. Course Reevaluation(s) Reevaluation #1: Care team detail note is appreciated and agreed on discharge the patient back to the correction will arrange for transportation. Time: 17:26 Medical Decision Making Differential Diagnosis Differential Diagnoses: The differential diagnosis associated with the presentation includes ( Major depression, neurovascular injury in the left wrist.) Admission/Observation Consideration of admission/observation: Escalation of care including admission/observation considered Chronic Conditions Patient?s care impacted by: Other ( Longstanding mental health issue.) Discharge Plan Discharge Clinical Impression: Anxiety, Adjustment disorder with anxiety Patient Disposition: [facility] Instructions: Anxiety (ED) Prescriptions: No Action haloperidol 5 mg tablet 1 tab PO TID PRN (Reason: Agitation) diphenhydramine HCl [Banophen] 50 mg capsule 2 cap PO BEDTIME hydroxyzine pamoate 50 mg capsule 1 cap PO BID PRN (Reason: Anxiety) zolpidem 10 mg tablet 1 tab PO BEDTIME acetaminophen 500 mg tablet 1 tab PO Q6H PRN (Reason: pain) albuterol sulfate [ProAir HFA] 90 mcg/actuation HFA aerosol inhaler 2 puff inhalation Q6H PRN (Reason: Wheezing) omeprazole 20 mg Tablet,Delayed Release (Dr/Ec) 20 mg PO DAILY@0630 lithium carbonate 300 mg tablet 300 mg PO BID clonidine HCl 0.1 mg tablet 1 tab PO TID benztropine 0.5 mg tablet 1 tab PO BID haloperidol decanoate 100 mg/mL solution 75 mg IM Q4W Rx Instructions: NEXT DOSE: 07/09/23 duloxetine 60 mg capsule,delayed release(DR/EC) 1 cap PO DAILY fluticasone propion-salmeterol [Advair HFA] 230-21 mcg/actuation HFA aerosol inhaler 2 puff INHALATION BID prazosin 1 mg capsule 1 mg PO BEDTIME Protocol: Hold for SBP< HOLD for SBP < : 90 fluticasone propionate 50 mcg/actuation spray,suspension 2 spray intranasal DAILY trazodone 100 mg tablet 200 mg PO BEDTIME lorazepam 1 mg tablet 1 mg PO TID PRN (Reason: Anxiety) prazosin 5 mg capsule 15 mg PO BEDTIME Rx Instructions: TAKE WITH 1 MG FOR TOTAL DOSE 16MG PM Interventions: [place]-Suicide Risk Severity Scale Last Done: 11/30/23 17:05 Print Language: Serbian
[2023-11-30 17:19] VITALS: BP 149/87; PULSE 102; RESP 18; TEMP 36.6; O2SAT 98
--- NOTE | 2023-11-30 17:23 | PC.NURSE ---
Kush mainframe programmer called to give report on patient, states can be reached at [phone]
--- NOTE | 2023-11-30 17:27 | MHC.CARE ---
CARE Team briefly met with the pt to assess for risk to self and others. Pt is denying SI/HI/AVH at this time with no plan or intent. Today, pt was at her long term and superficially cut herself on her left forearm, not requiring medical attention, with a razor blade that she purchased from the store for her hygiene needs. Once the pt cut herself she turned in all of her razor blades that she had. Per the pt's report, the staff was giving her a hard time by telling her that she only bought the blades to cut herself. She became angry and she started yelling at the staff. This caused staff to call 911 and the local PD arrived. The PD stated to her that she could [place] [facility] [place] a [address] and she did so. The long term told the pt that she would need to get a Lyft home as they would not be picking her up. CARE Team spoke to Dr. Chau who is in agreement to d/c the pt back to the long term as she is denying SI/HI/AVH to him and her wounds were superficial.
--- NOTE | 2023-11-30 18:08 | MHC.CARE ---
CARE Team spoke with the pt's shelter who have some concerns. Paige, on-call spinning supervisor [phone], stated that the pt threatens to self harm every time the staff give another client attention. Paige stated that the pt has been on crisis alert for the past week due to SIB, i.e. hitting her head on a radiator and punching herself in the head. It is the anniversary of her sisters coming up and this time of year is always difficult for the pt and Paige agreed to this. Paige stated that the pt can return to the shelter, on the condition that if the pt self harms again tonight or acts out, that she will be sent back to the ED for a full crisis assessment. CARE Team spoke to the pt about this and the pt agreed that she would not act out nor self harm again tonight. Pt is aware that she will most likely go [facility] if she is to come back tonight for any reason.
[2023-11-30 19:06] VITALS: BP 113/71; PULSE 78; RESP 16; TEMP 36.6; O2SAT 98
== END 2023-11-30 19:07 | disposition skilled nursing facility (03) ==
PROVIDERS: Emergency Provider Emergency Medicine
DX: F43.22 Adjustment disorder with anxiety (principal); S61.512A Laceration without foreign body of left wrist, initial encounter; Z63.4 Disappearance and death of family member; X78.9XXA Intentional self-harm by unspecified sharp object, initial encounter; Y93.9 Activity, unspecified; Y92.9 Unspecified place or not applicable; Y99.9 Unspecified external cause status
CPT/HCPCS: 99284

== ENCOUNTER 2023-12-01 11:49 | Day surgery (SDC) | payer OTHER, SELFPAY ==
--- NOTE | ~2023-12-01 | IR_ITS ---
Port removal History: Recurrent left-sided port is not aspirating blood. Catheter has retracted into the SVC. Referring physicians request removal of the port after placing a new port.. Procedure: The risks and benefits were discussed the patient and the consent was signed. The left anterior chest was prepped and draped in routine sterile fashion. The skin was anesthetized with 1% lidocaine. An incision was made over the previous scar. Utilizing blunt dissection, the port was removed from the chest with the catheter intact. The pocket was irrigated with 50 mL of normal saline. The port pocket was closed with interrupted 3-0 Vicryl sutures in the deep layer and surgical glue to close the skin. The patient tolerated the procedure well. A sterile dressing was applied. This procedure was performed by Jose Daniel Krishnamurthy PA-C, and supervised by Dr. Collins. IR/IR cvc remove tunnel w prt/fisher spear Impression: Left port removal
--- NOTE | ~2023-12-01 | IR_ITS ---
PROCEDURE: CLINICAL HISTORY: 38-year-old female with schizoaffective disorder requires frequent ECT. She has poor IV access and her current left-sided port not aspirating blood.. The patient presents to interventional radiology for placement of a new port for long-term IV access and removal of her left-sided port. PROCEDURES: 1. Real-time ultrasound-guided access into the right internal jugular vein after documentation of selected vessel patency, and permanent image storing in the patient records. 2. Placement of a 6.6 Lao single-lumen power port. CLINICIAN: Jose Daniel Krishnamurthy PA-C MEDICATIONS: - Versed 1.5 mg, Fentanyl 75 mcg, Lidocaine 1% 10 mL SQ -Antibiotics: Ancef 2g -For additional details, please see nursing flowsheet. Complications: None. Estimated blood loss: <5 ml Specimens: None. Contrast: None. Fluoroscopy time: 3.4 min MODERATE SEDATION TIME: 67 min PROCEDURE NOTE: The procedure, risks, benefits, and alternatives were carefully explained to the patient and written informed consent was obtained. The patient was placed supine on the fluoroscopy table. A timeout was performed. The right neck and chest was prepped and draped in usual sterile fashion. Maximum barrier technique was utilized. Local anesthesia was administered to the access site with 1% lidocaine. Under ultrasound guidance, the right internal jugular vein was accessed with a 5 fr micropuncture set. A 0.035 in wire was advanced into the IVC. A peel-away sheath was advanced over the wire and into the SVC, and the wire was removed. Next, subcutaneous lidocaine was administered to the chest. The port pocket was created after the skin incision, utilizing blunt dissection. Using blunt dissection, a subcutaneous tunnel was created that connects from the port pocket to the venotomy site. Through the peel-away sheath, the 6.6 Lao port catheter was placed. The catheter position was verified with fluoroscopy to be at the superior vena cava/right atrial junction. The port was connected to the catheter and was placed in the pocket. The venotomy site was closed with a 3-0 Vicryl subcutaneous suture. The port incision site was closed with interrupted 3-0 Vicryl subcutaneous sutures and surgical glue. Prior to closing the skin, 1 g of Ancef solution was placed in the pocket. The port was tested, flushed, and packed with heparin per routine protocol. The patient tolerated the procedure well. The patient was stable after the procedure and was transferred to the PACU. The procedure was performed under moderate sedation and with a dedicated nurse with continuous monitoring of vital signs. A permanent image of the ultrasound the neck and fluoroscopic image of the chest was saved and sent to PACS. FINDINGS: 1. Patent right internal jugular vein 2. Placement of a 6.6 Lao single lumen power port. 3. Port flushes and aspirates very well with a 10 mL syringe. No pneumothorax. IR/IR cvc insert tunnel w prt/dental claims processor IMPRESSION: Placement of a 6.6 Lao single-lumen power port. PLAN: - The patient will be discharged home when stable by sedation protocol. - Port may be used immediately. This procedure was performed by Jose Daniel Krishnamurthy PA-C, and directly supervised by Dr. Collins
[2023-12-01 12:07] LABS: MANUAL DIFF FLAG NO
[2023-12-01 12:10] LABS: Basophils Percent Auto 0.2 % (0-2); Eosinophils Absolute Auto 0.1 X10*3/uL (0.0-0.4); Eosinophils Percent Auto 0.9 % (0-4); Hematocrit 37.9 % (37.0-47.0); Hemoglobin 12.7 g/dl (12.0-16.0); Imm Gran Abs Auto 0.03 X10*3/uL (0.00-0.03); Imm Gran Pct Auto 0.4 % (0.0-0.4); Lymphocytes Absolute Auto 1.5 X10*3/uL (1.2-4.9); Lymphocytes Percent Auto 18.8 % (20-40); Mean Corpuscular HGB Conc 33.5 g/dl (31.0-35.0); Mean Corpuscular Hemoglobin 30.6 pg (27.0-33.0); Mean Corpuscular Volume 91.3 fL (80.0-98.0); Mean Platelet Volume 10.6 fL (9.4-12.3); Monocytes Absolute Auto 0.4 X10*3/uL (0.1-1.2); Monocytes Percent Auto 5.5 % (2-11); Neutrophils Percent Auto 74.2 % (45-73); Platelet Count 229 X10*3/uL (160-400); Red Blood Count 4.15 X10*6/uL (4.20-5.50); Red Cell Distribution Width 13.2 % (11.0-16.0)
[2023-12-01 12:20] LABS: INTERNATIONAL NORM RATIO 0.9 (0.9-1.1); Partial Thromboplastin Time 35.5 SEC (26.0-36.8); Prothrombin Time 11.4 SEC (11.1-13.3)
[2023-12-01 12:22] LABS: UPreg QC Valid YES; Urine Pregnancy NEGATIVE (NEGATIVE)
[2023-12-01 15:18] VITALS: BP 124/84; PULSE 90; RESP 16; TEMP 36.4; O2SAT 97
== END 2023-12-01 15:22 | disposition home or self-care (01) ==
PROVIDERS: Physician Assistant Surgical; Visit Provider Psychiatry & Neurology Psychiatry
DX: T82.898A Other specified complication of vascular prosthetic devices, implants and grafts, initial encounter (principal); F25.9 Schizoaffective disorder, unspecified; Y83.8 Other surgical procedures as the cause of abnormal reaction of the patient, or of later complication, without mention of misadventure at the time of the procedure; Y92.9 Unspecified place or not applicable
CPT/HCPCS: 36415; 36561; 36590; 81025; 85025; 85610; 85730; 99152; 99153; A4364; C1769; C1788; J0690; J1642; J1644; J2250; J2310; J3010

== ENCOUNTER → 2023-12-01 13:00 | Outpatient (BNV) | payer OTHER, SELFPAY | PROVIDERS: Visit Provider Physician Assistant Surgical | DX: T82.598A Other mechanical complication of other cardiac and vascular devices and implants, initial encounter (principal) | CPT/HCPCS: 36561; 36590; 76937; 77001; 99152 ==

== ENCOUNTER 2023-12-13 05:54 | Day surgery (SDC) | payer OTHER, SELFPAY ==
[2023-12-13] VITALS (7 sets, daily range): BP systolic 114–148; BP diastolic 67–88; PULSE 95–106; RESP 12–23; TEMP 36.6–37.1; O2SAT 94–98; BMI 46.0
--- NOTE | 2023-12-13 06:50 | HO.ANESPROP2 ---
[facility] Active Problems Active Problems: All Active Problems Port-A-Cath in place (Acute) Intentional self-harm (Acute) COPD (chronic obstructive pulmonary disease) (Acute) Asthma (Acute) Adjustment disorder (Acute) Anxiety (Acute) Injury of ligament of right knee (Acute) Sprain of anterior cruciate ligament of right knee (Acute) Hernia (Chronic) Schizoaffective disorder, depressive type (Chronic) Chronic post-traumatic stress disorder (PTSD) (Chronic) Increased BMI (Acute) GERD (gastroesophageal reflux disease) (Acute) Borderline personality disorder (Chronic) Past Medical History Medical History Port-A-Cath in place History of electroconvulsive therapy COVID-19 COVID-19 Sprain of left foot Chronic post-traumatic stress disorder (PTSD) COPD (chronic obstructive pulmonary disease) Increased BMI GERD (gastroesophageal reflux disease) Recurrent major depression-severe Acute post-traumatic stress disorder Injury, self-inflicted Suicidal ideation Self-harming behavior Intentional self-harm Suicidal ideation Borderline personality disorder Schizoaffective disorder Adjustment disorder Asthma Depression Anxiety PTSD (post-traumatic stress disorder) Family History Family History Mother Brain cancer Other No family history of cardiac disease Family history of problems with anesthesia: No Surgical History History of Problems with Anesthesia: No Social History Social History Household Members: Other Household Members Other:: penitentiary Housing: Other Housing Other:: penitentiary Do you presently have visiting nurse or other home services: No Unable to assess alcohol history related to: Refusing to respond Alcohol intake: never Comment: 1:1 sitter Patient Tobacco Use Status: Former Tobacco user Quit Date: 02-19-21 Tobacco use type: Cigarette Cigarette Packs Per Day: 0.5 Cigarettes Per Day: 4 Years Smoked: 20 e-Cigarette/Vaping Use: Never Used Second Hand Smoke Exposure: No Substance Use Type: Marijuana Advance Directives: No Advance Directives Information Provided: Yes service: No Sexual orientation: Straight/Heterosexual Meds Allergies Allergy/AdvReac Type Severity Reaction Status Date / Time carbamazepine [From TEGRETOL] AdvReac Mild Nausea and Verified 11/30/23 17:04 Vomiting topiramate [From Topamax] AdvReac Mild Nausea and Verified 11/30/23 17:04 Vomiting Home Medications ?Medication ?Instructions ?Recorded ?Confirmed ?Last Taken ?Type acetaminophen 500 mg tablet 1 tab PO Q6H PRN pain 08/14/22 09/04/23 03/13/23 History albuterol sulfate 90 mcg/actuation 2 puff inhalation Q6H PRN Wheezing 08/14/22 09/04/23 03/13/23 History aerosol inhaler (ProAir HFA) diphenhydramine HCl 50 mg capsule 2 cap PO BEDTIME 08/14/22 09/04/23 07/21/23 20:00 History (Banophen) haloperidol 5 mg tablet 1 tab PO TID PRN Agitation 08/14/22 09/04/23 03/13/23 History hydroxyzine pamoate 50 mg capsule 1 cap PO BID PRN Anxiety 08/14/22 09/04/23 03/13/23 History omeprazole 20 mg tablet,delayed 20 mg PO DAILY@0630 08/14/22 09/04/23 07/21/23 20:00 History release zolpidem 10 mg tablet 1 tab PO BEDTIME 08/14/22 09/04/23 07/21/23 20:00 History fluticasone propionate 230 2 puff inhalation BID 10/07/22 09/04/23 07/22/23 08:00 History mcg-salmeterol 21 mcg/actuation HFA inhaler (Advair HFA) benztropine 0.5 mg tablet 1 tab PO BID 10/26/22 09/04/23 07/22/23 08:00 History clonidine HCl 0.1 mg tablet 1 tab PO TID 10/26/22 09/04/23 07/22/23 14:00 History duloxetine 60 mg capsule,delayed 1 cap PO DAILY 10/26/22 09/04/23 07/22/23 08:00 History release haloperidol decanoate 100 mg/mL 75 mg IM Q4W 10/26/22 09/04/23 08/25/23 History intramuscular solution lithium carbonate 300 mg tablet 300 mg PO BID 10/26/22 09/04/23 07/22/23 08:00 History lorazepam 1 mg tablet 1 mg PO TID PRN Anxiety 03/25/23 09/04/23 Unknown History prazosin 5 mg capsule 15 mg PO BEDTIME 03/25/23 09/04/23 07/21/23 20:00 History fluticasone propionate 50 2 spray intranasal DAILY 06/17/23 09/04/23 07/22/23 08:00 History mcg/actuation nasal spray,suspension prazosin 1 mg capsule 1 mg PO BEDTIME 06/17/23 09/04/23 07/21/23 20:00 History trazodone 100 mg tablet 200 mg PO BEDTIME 06/17/23 09/04/23 07/21/23 20:00 History Exam Height,Weight and Vital Signs: Height 4 ft 11 in Weight 103.419 kg Last Vital Signs Temp 98 F 12/13/23 06:25 Pulse 97 12/13/23 06:25 Resp 12 12/13/23 06:25 BP 132/83 12/13/23 06:25 Pulse Ox 97 12/13/23 06:25 O2 Del Method Room Air 12/13/23 06:25 Airway Mallampati Class: II (couple missing, denies any loose) TM Dist: >3cm Neck ROM: Full Heart: rrr Lungs: cta Assessment and Plan Assessment Anesthesia Assessment: Anesthesia Plan Discussed and Chart Reviewed Final Anesthetic Review Family History of Problems with Anesthesia: No History of Problems with Anesthesia: No ASA Class: III Final Preanesthetic Review: No Changes in Pt Med Stat, Meds/Allgs Chart Reviewed and Consent Obtained/Reviewed Patient Risk: Intermediate Procedure Risk: Intermediate Anesthetic Plan Anesthetic Plan: GA Disposition: Standard PACU
--- NOTE | 2023-12-13 06:57 | MHC.SHP ---
Pre-Procedural Eval Section A - 24 Hr Update-Section A only Date of Service: 12/13/23 The patient is an INPATIENT: No Changes since office visit: No Cold of Flu in the past 2 weeks, No New Medical Problems, No Changes in Medication and No Patient answered all questions The patient has been examined within 24 hours of the surgical procedure. The History & Physical has been completed within 30 days and I have reviewed it.: Yes Section B - Complete if H&P > 30 days Chief Complaint: Major depressive disorder, recurrent, severe with Details of Present Illness: The patient denies new changes on her medications, she was on the ED ON 11/29 after self harming, no safety concerns. Relevant Family History (Specify if Yes): Yes Relevant Social History: Other (specify) (cannabis) Present Medications: see Short Stay Collaborative assessment Medical History: Significant History Allergies: Allergies Allergy/AdvReac Type Severity Reaction Status Date / Time carbamazepine [From TEGRETOL] AdvReac Mild Nausea and Verified 11/30/23 17:04 Vomiting topiramate [From Topamax] AdvReac Mild Nausea and Verified 11/30/23 17:04 Vomiting Review of Systems Sugical H&P ROS: Negative: Constitution, Cardiovascular, Respiratory, Neurological, Psychiatric, Hem-Onc, Allergic/Immunologic, Gastrointestinal, Genitourinary, Musculoskeletal, Integumentary, Endocrine and Eyes/Ears/Nose/Throat Exam Surgical H&P Exam: Normal: HEENT, Normal: Heart, Normal: Lungs, Normal: Extremities, Normal: Abdomen, Normal: Skin and Normal: Neurological Plan Diagnosis/Plan: Unchanged I have reviewed the history and physical and performed a pertinent physical examination on my patient. No changes have occurred unless specified. Time Spent With Patient Time: Total time managing care of this patient today ___20_ minutes.
--- NOTE | 2023-12-13 07:02 | HO.ECTPROC ---
ECT Procedure Note Diagnosis/Treatment Date of Service: 12/13/23 Diagnosis: Schizoaffective Disorder Previous ECT Date: 11/08/23 Treatment: Maintenance Interval Clinical Notes: The patient reported feeling better, she is at [facility]. She was on the ED a few weeks ago since she was dysphoric, remembering the passing of her sister. She denies side effects with the previous ECT. ECT done as usual, no complications, woke up well. Time: Total time managing care of this patient today _30___ minutes. ECT Settings Device: THYMATRON DGx Electrode Placement: Bifrontal Program/Pulse Width: 0.50 Energy Percent: 100 Seizure Duration By EEG (in seconds): 19 By Motor Observation (in seconds): 16 Medications Administration General Anesthetic: Etomidate (16) Muscle Relaxant: Succinylcholine (100) Ancillary Medications Analgesics: Torodol - Pre ECT Anti-emetics: Zofran - Pre ECT Airway Management Airway Management: Bag Mask Ventilation Treatment Recommendations No Changes Recommended: No change Notes: The patient is on Ativan PO, she didn't take last night and I ordered Ativan 1 mg po after she woke up. Pt Tolerated Procedure w/o Issue: No
[2023-12-13] MEDS: Lactated Ringers 1,000 ML 50 ML IVCONT (07:04)
== END 2023-12-13 08:43 | disposition home or self-care (01) ==
PROVIDERS: Visit Provider Psychiatry & Neurology Psychiatry
PROC: (CPT 90870; principal; 2023-12-13 07:00)
DX: F25.9 Schizoaffective disorder, unspecified (principal); F43.12 Post-traumatic stress disorder, chronic; F41.1 Generalized anxiety disorder; F60.3 Borderline personality disorder; J44.9 Chronic obstructive pulmonary disease, unspecified; R91.8 Other nonspecific abnormal finding of lung field; Z95.828 Presence of other vascular implants and grafts; G47.33 Obstructive sleep apnea (adult) (pediatric); E66.01 Morbid (severe) obesity due to excess calories; Z68.43 Body mass index [BMI] 50.0-59.9, adult; Z79.51 Long term (current) use of inhaled steroids; Z79.899 Other long term (current) drug therapy; Z88.8 Allergy status to other drugs, medicaments and biological substances; Z87.891 Personal history of nicotine dependence
CPT/HCPCS: 90870; J0330; J1596; J1642; J1805; J1885; J2405; J2704

== ENCOUNTER → 2023-12-13 05:54 | Outpatient (BNV) | payer OTHER, SELFPAY | PROVIDERS: Visit Provider Psychiatry & Neurology Psychiatry | DX: F33.3 Major depressive disorder, recurrent, severe with psychotic symptoms (principal) | CPT/HCPCS: 90870 ==

== ENCOUNTER 2024-01-03 05:56 | Day surgery (SDC) | payer OTHER, SELFPAY ==
[2024-01-03 06:27] VITALS: BP 128/89; PULSE 85; RESP 16; TEMP 36.1; O2SAT 97; BMI 44.4
--- NOTE | 2024-01-03 06:50 | HO.ANESPROP2 ---
[facility] [place] Active Problems Active Problems: All Active Problems Port-A-Cath in place (Acute) Intentional self-harm (Acute) COPD (chronic obstructive pulmonary disease) (Acute) Asthma (Acute) Adjustment disorder (Acute) Anxiety (Acute) Injury of ligament of right knee (Acute) Sprain of anterior cruciate ligament of right knee (Acute) Hernia (Chronic) Schizoaffective disorder, depressive type (Chronic) Chronic post-traumatic stress disorder (PTSD) (Chronic) Increased BMI (Acute) GERD (gastroesophageal reflux disease) (Acute) Borderline personality disorder (Chronic) Past Medical History Medical History Port-A-Cath in place History of electroconvulsive therapy COVID-19 COVID-19 Sprain of left foot Chronic post-traumatic stress disorder (PTSD) COPD (chronic obstructive pulmonary disease) Increased BMI GERD (gastroesophageal reflux disease) Recurrent major depression-severe Acute post-traumatic stress disorder Injury, self-inflicted Suicidal ideation Self-harming behavior Intentional self-harm Suicidal ideation Borderline personality disorder Schizoaffective disorder Adjustment disorder Asthma Depression Anxiety PTSD (post-traumatic stress disorder) Family History Family History Mother Brain cancer Other No family history of cardiac disease Family history of problems with anesthesia: No Surgical History History of Problems with Anesthesia: No Social History Social History Household Members: Other Household Members Other:: correction Housing: Other Housing Other:: correction Do you presently have visiting nurse or other home services: No Unable to assess alcohol history related to: Refusing to respond Alcohol intake: never Comment: 1:1 sitter Patient Tobacco Use Status: Former Tobacco user Quit Date: 02-19-21 Tobacco use type: Cigarette Cigarette Packs Per Day: 0.5 Cigarettes Per Day: 4 Years Smoked: 20 e-Cigarette/Vaping Use: Never Used Second Hand Smoke Exposure: No Substance Use Type: Marijuana Advance Directives: No Advance Directives Information Provided: Yes service: No Sexual orientation: Straight/Heterosexual Meds Allergies Allergy/AdvReac Type Severity Reaction Status Date / Time carbamazepine [From TEGRETOL] AdvReac Mild Nausea and Verified 11/30/23 17:04 Vomiting topiramate [From Topamax] AdvReac Mild Nausea and Verified 11/30/23 17:04 Vomiting Home Medications ?Medication ?Instructions ?Recorded ?Confirmed ?Last Taken ?Type acetaminophen 500 mg tablet 1 tab PO Q6H PRN pain 08/14/22 09/04/23 03/13/23 History albuterol sulfate 90 mcg/actuation 2 puff inhalation Q6H PRN Wheezing 08/14/22 09/04/23 03/13/23 History aerosol inhaler (ProAir HFA) diphenhydramine HCl 50 mg capsule 2 cap PO BEDTIME 08/14/22 09/04/23 07/21/23 20:00 History (Banophen) haloperidol 5 mg tablet 1 tab PO TID PRN Agitation 08/14/22 09/04/23 03/13/23 History hydroxyzine pamoate 50 mg capsule 1 cap PO BID PRN Anxiety 08/14/22 09/04/23 03/13/23 History omeprazole 20 mg tablet,delayed 20 mg PO DAILY@0630 08/14/22 09/04/23 07/21/23 20:00 History release zolpidem 10 mg tablet 1 tab PO BEDTIME 08/14/22 09/04/23 07/21/23 20:00 History fluticasone propionate 230 2 puff inhalation BID 10/07/22 09/04/23 07/22/23 08:00 History mcg-salmeterol 21 mcg/actuation HFA inhaler (Advair HFA) benztropine 0.5 mg tablet 1 tab PO BID 10/26/22 09/04/23 07/22/23 08:00 History clonidine HCl 0.1 mg tablet 1 tab PO TID 10/26/22 09/04/23 07/22/23 14:00 History duloxetine 60 mg capsule,delayed 1 cap PO DAILY 10/26/22 09/04/23 07/22/23 08:00 History release haloperidol decanoate 100 mg/mL 75 mg IM Q4W 10/26/22 09/04/23 08/25/23 History intramuscular solution lithium carbonate 300 mg tablet 300 mg PO BID 10/26/22 09/04/23 07/22/23 08:00 History lorazepam 1 mg tablet 1 mg PO TID PRN Anxiety 03/25/23 09/04/23 Unknown History prazosin 5 mg capsule 15 mg PO BEDTIME 03/25/23 09/04/23 07/21/23 20:00 History fluticasone propionate 50 2 spray intranasal DAILY 06/17/23 09/04/23 07/22/23 08:00 History mcg/actuation nasal spray,suspension prazosin 1 mg capsule 1 mg PO BEDTIME 06/17/23 09/04/23 07/21/23 20:00 History trazodone 100 mg tablet 200 mg PO BEDTIME 06/17/23 09/04/23 07/21/23 20:00 History Exam Height,Weight and Vital Signs: Height 4 ft 11 in Weight 99.79 kg Last Vital Signs Temp 97 F 01/03/24 06:27 Pulse 85 01/03/24 06:27 Resp 16 01/03/24 06:27 BP 128/89 01/03/24 06:27 Pulse Ox 97 01/03/24 06:27 O2 Del Method Room Air 01/03/24 06:27 Airway Mallampati Class: II (missing a couple) TM Dist: >3cm Neck ROM: Full Heart: rrr Lungs: cta Assessment and Plan Assessment Anesthesia Assessment: Anesthesia Plan Discussed and Chart Reviewed Final Anesthetic Review Family History of Problems with Anesthesia: No History of Problems with Anesthesia: No NPO: Yes ASA Class: III Final Preanesthetic Review: No Changes in Pt Med Stat, Meds/Allgs Chart Reviewed and Consent Obtained/Reviewed Patient Risk: Intermediate Procedure Risk: Intermediate Anesthetic Plan Anesthetic Plan: GA Disposition: Standard PACU
--- NOTE | 2024-01-03 06:58 | MHC.SHP ---
Pre-Procedural Eval Section A - 24 Hr Update-Section A only Date of Service: 01/03/24 The patient is an INPATIENT: No Changes since office visit: Yes Cold of Flu in the past 2 weeks, Yes New Medical Problems, Yes Changes in Medication and Yes Patient answered all questions The patient has been examined within 24 hours of the surgical procedure. The History & Physical has been completed within 30 days and I have reviewed it.: Yes Section B - Complete if H&P > 30 days Chief Complaint: depression Allergies: Allergies Allergy/AdvReac Type Severity Reaction Status Date / Time carbamazepine [From TEGRETOL] AdvReac Mild Nausea and Verified 11/30/23 17:04 Vomiting topiramate [From Topamax] AdvReac Mild Nausea and Verified 11/30/23 17:04 Vomiting Plan I have reviewed the history and physical and performed a pertinent physical examination on my patient. No changes have occurred unless specified. Time Spent With Patient Time: Total time managing care of this patient today ____ minutes.
--- NOTE | 2024-01-03 07:14 | HO.ECTPROC ---
ECT Procedure Note Diagnosis/Treatment Date of Service: 01/03/24 Diagnosis: Schizoaffective Disorder Previous ECT Date: 12/13/23 Treatment: Maintenance Interval Clinical Notes: The patient reported euthymia, no changes on her mental status. No side effects with the prior ECT. ECT done as usual, no complications, woke up well. Time: Total time managing care of this patient today ____ minutes. ECT Settings Device: THYMATRON DGx Electrode Placement: Bitemporal Program/Pulse Width: 0.50 Energy Percent: 100 Seizure Duration By EEG (in seconds): 32 By Motor Observation (in seconds): 20 Medications Administration General Anesthetic: Etomidate (16) Muscle Relaxant: Succinylcholine (100) Ancillary Medications Analgesics: Torodol - Pre ECT Anti-emetics: Zofran - Pre ECT Airway Management Airway Management: Bag Mask Ventilation Treatment Recommendations No Changes Recommended: No change Pt Tolerated Procedure w/o Issue: Yes
[2024-01-03 07:21] VITALS: BP 147/101; PULSE 82; RESP 16; TEMP 36.8; O2SAT 98
[2024-01-03 07:26] VITALS: BP 137/86; PULSE 90; RESP 18; O2SAT 97
[2024-01-03 07:31] VITALS: BP 139/89; PULSE 91; RESP 18; O2SAT 94
[2024-01-03 07:36] VITALS: BP 138/69; PULSE 88; RESP 18; O2SAT 94
[2024-01-03 07:51] VITALS: BP 122/84; PULSE 79; RESP 18; TEMP 36.8; O2SAT 95
== END 2024-01-03 09:17 | disposition home or self-care (01) ==
PROVIDERS: Visit Provider Psychiatry & Neurology Psychiatry
PROC: (CPT 90870; principal; 2024-01-03 07:00)
DX: F25.9 Schizoaffective disorder, unspecified (principal); F43.12 Post-traumatic stress disorder, chronic; F41.1 Generalized anxiety disorder; F60.3 Borderline personality disorder; J44.9 Chronic obstructive pulmonary disease, unspecified; R91.8 Other nonspecific abnormal finding of lung field; Z95.828 Presence of other vascular implants and grafts; G47.33 Obstructive sleep apnea (adult) (pediatric); E66.01 Morbid (severe) obesity due to excess calories; Z68.43 Body mass index [BMI] 50.0-59.9, adult; Z79.51 Long term (current) use of inhaled steroids; Z79.899 Other long term (current) drug therapy; Z88.8 Allergy status to other drugs, medicaments and biological substances; Z87.891 Personal history of nicotine dependence
CPT/HCPCS: 90870; J0330; J1642; J1885; J2405

== ENCOUNTER → 2024-01-03 05:56 | Outpatient (BNV) | payer OTHER, SELFPAY | PROVIDERS: Visit Provider Psychiatry & Neurology Psychiatry | DX: F33.3 Major depressive disorder, recurrent, severe with psychotic symptoms (principal) | CPT/HCPCS: 90870 ==

== ENCOUNTER 2024-01-09 22:12 | Emergency (ER) | payer OTHER, SELFPAY ==
--- NOTE | ~2024-01-09 | XR_ITS ---
EXAMINATION: XR THORACIC SPINE CLINICAL INFORMATION: Pain. COMPARISON: None available. TECHNIQUE: 3 views of the thoracic spine were obtained. FINDINGS: The alignment is within normal limits. There is mild diffuse thoracic disc degenerative change with mild endplate sclerosis and anterolateral osteophyte formation. The bone mineralization is normal. No fracture is seen. A Mediport is noted in place. The soft tissues are unremarkable. XR/XR thoracic spine 3V IMPRESSION: Mild multilevel degenerative disc disease. No acute abnormality.
--- NOTE | ~2024-01-09 | XR_ITS ---
EXAMINATION: XR CERVICAL SPINE CLINICAL INFORMATION: Neck pain. COMPARISON: None available. TECHNIQUE: 3 views of the cervical spine were obtained. FINDINGS: There is straightening of the cervical spine curvature. There is mild C3-C4 to C6-C7 disc degenerative change with mild endplate change and mild osteophyte formation. No fracture is seen. The soft tissues are unremarkable. XR/XR cervical spine 3V IMPRESSION: No fracture identified. Straightening of the cervical spine curvature which may be seen with muscle spasm. Mild C3-C4 to C6-C7 disc degenerative change.
[2024-01-09 22:23] VITALS: BP 119/72; BP 120/70; PULSE 112; PULSE 98; RESP 16; TEMP 37.1; O2SAT 97; BMI 44.0
[2024-01-09 22:48] LABS: MANUAL DIFF FLAG NO
[2024-01-09 22:49] LABS: Basophils Percent Auto 0.2 % (0-2); Eosinophils Percent Auto 0.4 % (0-4); Hematocrit 35.1 % (37.0-47.0); Hemoglobin 11.7 g/dl (12.0-16.0); Imm Gran Abs Auto 0.02 X10*3/uL (0.00-0.03); Imm Gran Pct Auto 0.2 % (0.0-0.4); Lymphocytes Absolute Auto 1.5 X10*3/uL (1.2-4.9); Lymphocytes Percent Auto 18.1 % (20-40); Mean Corpuscular HGB Conc 33.3 g/dl (31.0-35.0); Mean Corpuscular Hemoglobin 30.5 pg (27.0-33.0); Mean Corpuscular Volume 91.6 fL (80.0-98.0); Mean Platelet Volume 11.7 fL (9.4-12.3); Monocytes Absolute Auto 0.5 X10*3/uL (0.1-1.2); Neutrophils Absolute Auto 6.1 x10*3/uL (2.0-8.3); Neutrophils Percent Auto 75.1 % (45-73); Platelet Count 222 X10*3/uL (160-400); Red Blood Count 3.83 X10*6/uL (4.20-5.50); White Blood Count 8.1 X10*3/uL (4.8-10.8)
[2024-01-09 23:03] LABS: Alanine Aminotransferase 8 U/L (0-31); Alkaline Phosphatase 50 U/L (39-117); Anion Gap 13 (12-20); Aspartate Amino Transferase 10 U/L (5-31); Bilirubin Total 0.2 mg/dL (0.0-1.0); Blood Urea Nitrogen 8 mg/dL (9-16); Calcium 9.1 mg/dL (8.4-10.2); Carbon Dioxide 23 mmol/L (22-29); Chloride 106 mmol/L (96-108); Creatinine Clr Calc Pharmacy 76.5; Estimated Glomerular Filt Rate 60; Glucose Random 101 mg/dL (60-115); Potassium 3.5 mmol/L (3.3-5.1); Sodium 138 mmol/L (135-145); Total Protein 6.7 g/dL (6.5-8.0)
[2024-01-10 00:07] VITALS: BP 122/72; PULSE 92; RESP 16; O2SAT 98
[2024-01-10 02:39] VITALS: PULSE 72; RESP 16; O2SAT 96
[2024-01-10 04:31] LABS: Appearance Urine Cloudy; Color Urine Yellow; Glucose Urine UA Negative (Negative); Leukocyte Esterase Urine Negative (Negative); Nitrite Urine Negative (Negative); PH 5.5 (5.0-9.0); Specific Gravity - Urine 1.015 (1.005-1.025); UMIC TRIGGER UACC YES; Urine Blood Small (1+) (Negative); Urine Ketones Trace mg/dL (Negative); Urine Protein Negative (Neg-Trace)
[2024-01-10 04:32] LABS: UPreg QC Valid YES; Urine Pregnancy NEGATIVE (NEGATIVE)
[2024-01-10 04:40] LABS: Bacteria Urine 1+ (None Seen); Hyaline Casts Urine 0-2 /LPF (0-2); WBC Urine 0-5 /HPF (0-5)
--- NOTE | 2024-01-10 05:47 | ED_ITS ---
HPI - Back Pain/Injury General Chief Complaint: Back Pain/Injury Stated Complaint: back pain x4 days,dizzy x1 week Time Seen by Provider: 01/10/24 05:46 Source: patient Mode of arrival: EMS Limitations: no limitations History of Present Illness ED Provider: Dr. Danilo Foster HPI Narrative: 38-year-old female history of schizoaffective disorder, SI, PTSD, borderline personality disorder who presents emergency department for evaluation of neck and upper back pain x4 days and dizziness x1 week. Patient has had poor oral intake. She states the pain got worse therefore she came to the emergency department. She states the pain is exacerbated by moving her head and neck. She denies any numbness or weakness of her upper extremities. She denied fever, chills. She denies injection drug use. Related Data Home Medications ?Medication ?Instructions ?Recorded ?Confirmed acetaminophen 500 mg tablet 1 tab PO Q6H PRN pain 08/14/22 09/04/23 albuterol sulfate 90 mcg/actuation 2 puff inhalation Q6H PRN Wheezing 08/14/22 09/04/23 aerosol inhaler (ProAir HFA) diphenhydramine HCl 50 mg capsule 2 cap PO BEDTIME 08/14/22 09/04/23 (Banophen) haloperidol 5 mg tablet 1 tab PO TID PRN Agitation 08/14/22 09/04/23 hydroxyzine pamoate 50 mg capsule 1 cap PO BID PRN Anxiety 08/14/22 09/04/23 omeprazole 20 mg tablet,delayed 20 mg PO DAILY@0630 08/14/22 09/04/23 release zolpidem 10 mg tablet 1 tab PO BEDTIME 08/14/22 09/04/23 fluticasone propionate 230 2 puff inhalation BID 10/07/22 09/04/23 mcg-salmeterol 21 mcg/actuation HFA inhaler (Advair HFA) benztropine 0.5 mg tablet 1 tab PO BID 10/26/22 09/04/23 clonidine HCl 0.1 mg tablet 1 tab PO TID 10/26/22 09/04/23 duloxetine 60 mg capsule,delayed 1 cap PO DAILY 10/26/22 09/04/23 release haloperidol decanoate 100 mg/mL 75 mg IM Q4W 10/26/22 09/04/23 intramuscular solution lithium carbonate 300 mg tablet 300 mg PO BID 10/26/22 09/04/23 lorazepam 1 mg tablet 1 mg PO TID PRN Anxiety 03/25/23 09/04/23 prazosin 5 mg capsule 15 mg PO BEDTIME 03/25/23 09/04/23 fluticasone propionate 50 2 spray intranasal DAILY 06/17/23 09/04/23 mcg/actuation nasal spray,suspension prazosin 1 mg capsule 1 mg PO BEDTIME 06/17/23 09/04/23 trazodone 100 mg tablet 200 mg PO BEDTIME 06/17/23 09/04/23 Previous Rx's ?Medication ?Instructions ?Recorded acetaminophen 500 mg tablet 1,000 mg (2 x 500 mg) PO Q6H PRN 01/10/24 (Tylenol Extra Strength) fever or pain #20 tabs cyclobenzaprine 10 mg tablet 10 mg PO TID PRN pain, muscle 01/10/24 spasm #15 tabs ibuprofen 400 mg tablet 400 mg PO TID PRN fever or pain 01/10/24 #30 tabs Allergies Allergy/AdvReac Type Severity Reaction Status Date / Time carbamazepine [From TEGRETOL] AdvReac Mild Nausea and Verified 01/09/24 22:25 Vomiting topiramate [From Topamax] AdvReac Mild Nausea and Verified 01/09/24 22:25 Vomiting Review of Systems 2 Review of Systems: Yes all other systems are reviewed and are negative PMFSH Past Medical History Medical History Port-A-Cath in place History of electroconvulsive therapy COVID-19 COVID-19 Sprain of left foot Chronic post-traumatic stress disorder (PTSD) COPD (chronic obstructive pulmonary disease) Increased BMI GERD (gastroesophageal reflux disease) Recurrent major depression-severe Acute post-traumatic stress disorder Injury, self-inflicted Suicidal ideation Self-harming behavior Intentional self-harm Suicidal ideation Borderline personality disorder Schizoaffective disorder Adjustment disorder Asthma Depression Anxiety PTSD (post-traumatic stress disorder) Family History Family History Mother Brain cancer Other No family history of cardiac disease Social History Social History Household Members: Other Household Members Other:: long-term Housing: Other Housing Other:: long-term Do you presently have visiting nurse or other home services: No Unable to assess alcohol history related to: Refusing to respond Alcohol intake: never Comment: 1:1 sitter Patient Tobacco Use Status: Former Tobacco user Quit Date: 02-19-21 Tobacco use type: Cigarette Cigarette Packs Per Day: 0.5 Cigarettes Per Day: 4 Years Smoked: 20 Smoked in Last 30 Days: Yes e-Cigarette/Vaping Use: Never Used Second Hand Smoke Exposure: No Use of substances other than those prescribed or required for medical reasons: Yes Substance Use Type: Marijuana Substance Use Frequency: Daily Advance Directives: No Advance Directives Information Provided: No Do you have a plan to hurt others: No Plan Patient : No service: No Sexual orientation: Straight/Heterosexual Physical Exam 2 Vital Signs: Vital Signs: Last Vital Signs Temp 98.3 F 01/10/24 06:27 Pulse 84 01/10/24 06:27 Resp 16 01/10/24 06:27 BP 124/79 01/10/24 06:27 Pulse Ox 98 01/10/24 06:27 O2 Del Method Room Air 01/10/24 06:27 BMI result Body Mass Index 44.0 Vital signs were no Exam: General: Awake, in [id number]-iv-zsaohumn distress secondary to her neck Head: Normocephalic, atraumatic EENT: PERRL, Lids normal, sclera normal, conjunctiva normal, nose normal , ears normal, throat without erythema or exudates Neck: Can has tenderness palpation of her trapezius muscles bilaterally. Vertebrae, she does have increased pain with minimal movement of her neck Lung: breath sounds symmetric, no wheezing, rales or rhonchi Chest: symmetric movement, nontender Heart: regular rate and rhythm, normal S1, S2 no murmurs or rubs Abdomen: soft, non-tender, nondistended, normal bowel sounds Back: no vertebral tenderness, no CVAT Extremities: no deformities, moves all extremities symmetrically Neuro: Awake, alert, oriented, normal speech, cranial nerves intact, moves all extremities symmetrically Psych: Pleasant, cooperative Medications Administered Discontinued Medications Generic Name Dose Route Start Last Admin Trade Name Freq PRN Reason Stop Dose Admin Cyclobenzaprine HCl 10 mg 01/10/24 05:57 01/10/24 06:02 Cyclobenzaprine Hcl 10 Mg Tablet PO 01/10/24 05:58 10 mg ONCE ONE Administration Ibuprofen 400 mg 01/10/24 05:57 01/10/24 06:02 Ibuprofen 400 Mg Tablet PO 01/10/24 05:58 400 mg ONCE STA Administration Medical Decision Making Medical Decision Making [facility] Narrative: 38-year-old female history of schizoaffective disorder, SI, PTSD, borderline personality disorder who presents emergency department for evaluation of neck and upper back pain x4 days and dizziness x1 week. Patient has had poor oral intake. She states the pain got worse therefore she came to the emergency department. She states the pain is exacerbated by moving her head and neck. She denies any numbness or weakness of her upper extremities. Vital signs were normal. Physical examination revealed no point vertebral tenderness patient did have significant tenderness and spasm of the trapezius muscles bilaterally head. Differential diagnosis: ?Includes but is not limited to disc disease, muscle spasm, musculoskeletal strain, arthritis, degenerative disc disease Following evaluation was ordered: CBC, CMP, urinalysis, urine , test, x-rays of the cervical and thoracic spine Patient was initially treated with the following: Ibuprofen 400 mg orally and cyclobenzaprine 10 mg orally Course: Interpretation patient's laboratory evaluation is as follows: Normocytic anemia with an H&H of 11 and 35.1 see was normal 8100. CMP was normal. Urinalysis revealed 1+ blood, microscopic revealed 3-5 RBCs, 0 WBCs, 11-20 squamous cells, 1+ bacteria-this is a non clean catch specimen. Urine test was negative. Laboratory evaluation was unremarkable. X-rays of the cervical spine and thoracic spine were consistent with degenerative disc disease which may be contributing to her pain. Patient was discharged home with prescriptions for Tylenol, ibuprofen and cyclobenzaprine. She was given printed and verbal instructions Admission/Observation Consideration of admission/observation: Escalation of care including admission/observation considered Lab Data 01/09/24 22:43 01/09/24 22:43 Labs: Lab Results 01/09/24 01/10/24 Range/Units 22:43 04:24 WBC 8.1 (4.8-10.8) X10*3/uL RBC 3.83 L (4.20-5.50) X10*6/uL Hgb 11.7 L (12.0-16.0) g/dl Hct 35.1 L (37.0-47.0) % MCV 91.6 (80.0-98.0) fL MCH 30.5 (27.0-33.0) pg MCHC 33.3 (31.0-35.0) g/dl RDW 13.0 (11.0-16.0) % Plt Count 222 (160-400) X10*3/uL MPV 11.7 (9.4-12.3) fL Immature Gran % (Auto) 0.2 (0.0-0.4) % Neut % (Auto) 75.1 H (45-73) % Lymph % (Auto) 18.1 L (20-40) % [place] % (Auto) 6.0 (2-11) % Eos % (Auto) 0.4 (0-4) % Baso % (Auto) 0.2 (0-2) % Lymph # (Auto) 1.5 (1.2-4.9) X10*3/uL [place] # (Auto) 0.5 (0.1-1.2) X10*3/uL Eos # (Auto) 0.0 (0.0-0.4) X10*3/uL Baso # (Auto) 0.0 (0.0-0.2) X10*3/uL Abs Immat Gran (auto) 0.02 (0.00-0.03) X10*3/uL Absolute Neuts (auto) 6.1 (2.0-8.3) x10*3/uL Absolute Nucleated RBC 0.000 (0.0-0.012) X10*3/uL Nucleated RBC % (auto) 0.0 (0.0-0.2) /100WBC Sodium 138 (135-145) mmol/L Potassium 3.5 (3.3-5.1) mmol/L Chloride 106 (96-108) mmol/L Carbon Dioxide 23 (22-29) mmol/L Anion Gap 13 (12-20) BUN 8 L (9-16) mg/dL Creatinine 1.04 (0.5-1.4) mg/dL Estim Creat Clear Calc 76.5 Estimated GFR 60 Random Glucose 101 (60-115) mg/dL Calcium 9.1 (8.4-10.2) mg/dL Total Bilirubin 0.2 (0.0-1.0) mg/dL AST 10 (5-31) U/L ALT 8 (0-31) U/L Alkaline Phosphatase 50 (39-117) U/L Total Protein 6.7 (6.5-8.0) g/dL Albumin 4.0 (3.5-5.0) g/dL Urine Color Yellow Urine Appearance Cloudy Urine pH 5.5 (5.0-9.0) Ur Specific [place] 1.015 (1.005-1.025) Urine Protein Negative (Neg-Trace) mg/dL Urine Glucose (UA) Negative (Negative) mg/dL Urine Ketones Trace (Negative) mg/dL Urine Blood Small (1+) H (Negative) Urine Nitrite Negative (Negative) Ur Leukocyte Esterase Negative (Negative) Urine RBC 3-5 H (0-2) /HPF Urine WBC 0-5 (0-5) /HPF Ur Squamous Epith Cells 11-20 (0-2) /HPF Urine Bacteria 1+ (None Seen) Hyaline Casts 0-2 (0-2) /LPF Urine Test NEGATIVE (NEGATIVE) Radiology Impression Discussion of test interpretation with radiology: I have reviewed the radiologist's reading. Radiologist Impression: XR thoracic spine 3V IMPRESSION: Mild multilevel degenerative disc disease. No acute abnormality. Dictated By: Hernesto Hawkins XR cervical spine 3V IMPRESSION: No fracture identified. Straightening of the cervical spine curvature which may be seen with muscle spasm. Mild C3-C4 to C6-C7 disc degenerative change. Dictated By: Hernesto Hawkins Chronic Conditions Patient?s care impacted by: Other (Chronic psychiatric illness) Discharge Plan Discharge Clinical Impression: Muscle strain of upper back, Muscle spasm Neck strain Qualifiers: Encounter type: initial encounter Qualified Code(s): S16.1XXA - Strain of muscle, fascia and tendon at neck level, initial encounter Patient Disposition: Home, Self-Care Instructions: Muscle Strain (ED) Additional Instructions: Your symptoms and exam are consistent with strain and spasm of the muscles of your neck and upper back. Take ibuprofen 200 mg pills, 2 pills every 6 hours as needed for pain or fever. Take Tylenol (acetaminophen) 500 mg pills, 2 pills every 6 hours as needed for pain or fever. Take Flexeril (cyclobenzaprine) 10 mg pills, 1 pill every 6-8 hours as needed for pain or spasm. ?This medication will make you sleepy. ?Do not drive or work while taking this medication. Follow-up with your doctor in 2 days. Please return to the emergency department if your symptoms get worse or if you develop any symptoms that are concerning to you. Prescriptions: New cyclobenzaprine 10 mg tablet 10 mg PO TID PRN (Reason: pain, muscle spasm) Qty: 15 0RF acetaminophen [Tylenol Extra Strength] 500 mg tablet 1,000 mg PO Q6H PRN (Reason: fever or pain) Qty: 20 0RF ibuprofen 400 mg tablet 400 mg PO TID PRN (Reason: fever or pain) Qty: 30 0RF No Action haloperidol 5 mg tablet 1 tab PO TID PRN (Reason: Agitation) diphenhydramine HCl [Banophen] 50 mg capsule 2 cap PO BEDTIME hydroxyzine pamoate 50 mg capsule 1 cap PO BID PRN (Reason: Anxiety) zolpidem 10 mg tablet 1 tab PO BEDTIME acetaminophen 500 mg tablet 1 tab PO Q6H PRN (Reason: pain) albuterol sulfate [ProAir HFA] 90 mcg/actuation HFA aerosol inhaler 2 puff inhalation Q6H PRN (Reason: Wheezing) omeprazole 20 mg Tablet,Delayed Release (Dr/Ec) 20 mg PO DAILY@0630 lithium carbonate 300 mg tablet 300 mg PO BID clonidine HCl 0.1 mg tablet 1 tab PO TID benztropine 0.5 mg tablet 1 tab PO BID haloperidol decanoate 100 mg/mL solution 75 mg IM Q4W Rx Instructions: NEXT DOSE: 07/09/23 duloxetine 60 mg capsule,delayed release(DR/EC) 1 cap PO DAILY fluticasone propion-salmeterol [Advair HFA] 230-21 mcg/actuation HFA aerosol inhaler 2 puff INHALATION BID prazosin 1 mg capsule 1 mg PO BEDTIME Protocol: Hold for SBP< HOLD for SBP < : 90 fluticasone propionate 50 mcg/actuation spray,suspension 2 spray intranasal DAILY trazodone 100 mg tablet 200 mg PO BEDTIME lorazepam 1 mg tablet 1 mg PO TID PRN (Reason: Anxiety) prazosin 5 mg capsule 15 mg PO BEDTIME Rx Instructions: TAKE WITH 1 MG FOR TOTAL DOSE 16MG PM Interventions: ED Discharge Assessment Last Done: 01/10/24 06:27 Discharge Date/Time: 01/10/24 06:27 Print Language: Albanian
[2024-01-10] MEDS: Cyclobenzaprine HCl 10 MG TABLET PO (06:02)
[2024-01-10] MEDS: Ibuprofen 400 MG TABLET PO (06:02)
[2024-01-10 06:10] VITALS: BP 128/68; PULSE 82; RESP 16; O2SAT 99
[2024-01-10 06:27] VITALS: BP 124/79; PULSE 84; RESP 16; TEMP 36.8; O2SAT 98
== END 2024-01-10 06:27 | disposition home or self-care (01) ==
PROVIDERS: Emergency Provider Emergency Medicine Emergency Medical Services; PCP Pediatrics
DX: S16.1XXA Strain of muscle, fascia and tendon at neck level, initial encounter (principal); M62.830 Muscle spasm of back; J44.9 Chronic obstructive pulmonary disease, unspecified; X58.XXXA Exposure to other specified factors, initial encounter; Y93.9 Activity, unspecified; Y92.9 Unspecified place or not applicable; Y99.9 Unspecified external cause status
CPT/HCPCS: 36415; 72040; 72072; 80053; 81001; 81025; 85025; 99283; 99284

== ENCOUNTER 2024-01-18 20:33 | Emergency (ER) | payer OTHER, SELFPAY ==
[2024-01-18 20:50] VITALS: BP 142/86; PULSE 108; O2SAT 99
[2024-01-18 20:54] VITALS: BP 117/79; PULSE 93; RESP 20; TEMP 36.4; O2SAT 94; BMI 32.3
[2024-01-18 21:43] LABS: MANUAL DIFF FLAG NO
--- NOTE | 2024-01-18 21:44 | ED_ITS ---
HPI - Nausea/Vomiting/Diarrhea General Chief complaint: Nausea/Vomiting/Diarrhea Stated complaint: DIZZY NAUSEA Time Seen by Provider: 01/18/24 21:32 Source: patient and EMS Mode of arrival: EMS Limitations: no limitations History of Present Illness ED Provider: Dr. Rosi Barcenas HPI Narrative: Patient comes to emergency room complaining of nausea and vomiting. Patient also complaining of feeling sad, depressed. According to the patient she has not suicidal or homicidal, denies hurting herself before coughing. Patient states that she has not been eating much for the last week, states that approximately a week ago, her aunt and cousin unexpectedly. Patient is any chest pain or shortness of breath. Related Data Home Medications ?Medication ?Instructions ?Recorded ?Confirmed acetaminophen 500 mg tablet 1 tab PO Q6H PRN pain 08/14/22 09/04/23 albuterol sulfate 90 mcg/actuation 2 puff inhalation Q6H PRN Wheezing 08/14/22 09/04/23 aerosol inhaler (ProAir HFA) diphenhydramine HCl 50 mg capsule 2 cap PO BEDTIME 08/14/22 09/04/23 (Banophen) haloperidol 5 mg tablet 1 tab PO TID PRN Agitation 08/14/22 09/04/23 hydroxyzine pamoate 50 mg capsule 1 cap PO BID PRN Anxiety 08/14/22 09/04/23 omeprazole 20 mg tablet,delayed 20 mg PO DAILY@0630 08/14/22 09/04/23 release zolpidem 10 mg tablet 1 tab PO BEDTIME 08/14/22 09/04/23 fluticasone propionate 230 2 puff inhalation BID 10/07/22 09/04/23 mcg-salmeterol 21 mcg/actuation HFA inhaler (Advair HFA) benztropine 0.5 mg tablet 1 tab PO BID 10/26/22 09/04/23 clonidine HCl 0.1 mg tablet 1 tab PO TID 10/26/22 09/04/23 duloxetine 60 mg capsule,delayed 1 cap PO DAILY 10/26/22 09/04/23 release haloperidol decanoate 100 mg/mL 75 mg IM Q4W 10/26/22 09/04/23 intramuscular solution lithium carbonate 300 mg tablet 300 mg PO BID 10/26/22 09/04/23 lorazepam 1 mg tablet 1 mg PO TID PRN Anxiety 03/25/23 09/04/23 prazosin 5 mg capsule 15 mg PO BEDTIME 03/25/23 09/04/23 fluticasone propionate 50 2 spray intranasal DAILY 06/17/23 09/04/23 mcg/actuation nasal spray,suspension prazosin 1 mg capsule 1 mg PO BEDTIME 06/17/23 09/04/23 trazodone 100 mg tablet 200 mg PO BEDTIME 06/17/23 09/04/23 Previous Rx's ?Medication ?Instructions ?Recorded acetaminophen 500 mg tablet 1,000 mg (2 x 500 mg) PO Q6H PRN 01/10/24 (Tylenol Extra Strength) fever or pain #20 tabs cyclobenzaprine 10 mg tablet 10 mg PO TID PRN pain, muscle 01/10/24 spasm #15 tabs ibuprofen 400 mg tablet 400 mg PO TID PRN fever or pain 01/10/24 #30 tabs cephalexin 500 mg capsule 500 mg PO BID #14 caps 01/19/24 doxycycline monohydrate 100 mg 100 mg PO BID #14 caps 01/19/24 capsule Allergies Allergy/AdvReac Type Severity Reaction Status Date / Time carbamazepine [From TEGRETOL] AdvReac Mild Nausea and Verified 01/18/24 20:56 Vomiting topiramate [From Topamax] AdvReac Mild Nausea and Verified 01/18/24 20:56 Vomiting Review of Systems 2 Review of Systems: Constitutional : No Weight loss, No Fever, No Chills, No Night Sweats, No Fatigue, No Malaise ENT/Mouth : No Hearing loss, No Ear Pain, No Nasal Congestion, No Sinus Pain, No Hoarseness, No sore throat, No Rhinorrhea, No Swallowing Difficulty Eyes: No Eye Pain, No Swelling, No Redness, No Foreign Body, No Discharge, No Vision Changes Cardiovascular : No Chest Pain, No SOB, No Dyspnea on Exertion, No Orthopnea, No Edema, No Palpitations Respiratory : No Cough, No Sputum, No Wheezing, No Smoke Exposure, No Dyspnea Gastrointestinal : Complaining of nausea and vomiting, No Diarrhea, No Constipation, No abdominal Pain, No Hematochezia, No Melena Genitourinary : no irregular bleeding, No Dysuria, No Urinary Frequency, No Hematuria, No Urinary Incontinence, No Urgency, No Flank Pain, No Urinary Flow Changes, No Hesitancy Musculoskeletal : No joint pain, No Myalgias, No Joint Swelling Skin : No Skin Lesions, No rash Neuro : No Weakness, No Numbness, No Paresthesias, No Loss of Consciousness, No Dizziness, No Headache Psych : No Anxiety/Panic, complaining of feeling sad/depressed, No SI/HI/AH/VH, No Social Issues, Heme/Lymph: No Bruising, No Bleeding,No Lymphadenopathy Endocrine : No Polyuria, No Polydipsia, No Temperature Intolerance [facility] Past Medical History Medical History Port-A-Cath in place History of electroconvulsive therapy COVID-19 COVID-19 Sprain of left foot Chronic post-traumatic stress disorder (PTSD) COPD (chronic obstructive pulmonary disease) Increased BMI GERD (gastroesophageal reflux disease) Recurrent major depression-severe Acute post-traumatic stress disorder Injury, self-inflicted Suicidal ideation Self-harming behavior Intentional self-harm Suicidal ideation Borderline personality disorder Schizoaffective disorder Adjustment disorder Asthma Depression Anxiety PTSD (post-traumatic stress disorder) Family History Family History Mother Brain cancer Other No family history of cardiac disease Social History Social History Household Members: Other Household Members Other:: custodial Housing: Other Housing Other:: custodial Do you presently have visiting nurse or other home services: No Unable to assess alcohol history related to: Refusing to respond Alcohol intake: never Comment: 1:1 sitter Patient Tobacco Use Status: Former Tobacco user Tobacco use type: Cigarette Cigarette Packs Per Day: 0.5 Cigarettes Per Day: 4 Years Smoked: 20 e-Cigarette/Vaping Use: Never Used Second Hand Smoke Exposure: No Substance Use Type: Marijuana Advance Directives: No Advance Directives Information Provided: No Do you have a plan to hurt others: No Plan service: No Sexual orientation: Straight/Heterosexual Physical Exam 2 Vital Signs: Vital Signs: Last Vital Signs Temp 97.5 F 01/18/24 20:54 Pulse 93 01/18/24 20:54 Resp 20 01/18/24 20:54 BP 117/79 01/18/24 20:54 Pulse Ox 94 01/18/24 20:54 O2 Del Method Room Air 01/18/24 20:54 BMI result Body Mass Index 32.3 Const: Other: Appearance: Alert. Oriented X3. No acute distress. Eyes: Pupils equal, round and reactive to light. ENT: Pharynx normal. Neck: Normal inspection. Neck supple. No lymph nodes noted. No crepitus CVS: Normal heart rate and rhythm. Pulses normal. Normal S1 and S2 Respiratory: No respiratory distress. Breath sounds normal. No Wheezing. No rales Abdomen: Soft and nontender. No rigidity. No distention. Skin: Skin warm and dry. Normal skin color. Normal skin turgor. In the left lower extremity, anteriorly, patient has a 1 cm x 1 cm area of erythema, eschar, no fluctuation Extremities: No lower extremity edema. No Lacerations. No Rash Neuro: Oriented X 3. No motor deficit. No sensory deficit. Moving all extremities. No slurred speech. CN 2 through 12 grossly intact Psych: calm, cooperative, normal affect Course Course Course Narrative: -of patient's labs pending -patient has not had any episodes of vomiting in the ED -patient given the 1st dose of doxycycline and cephalexin for a small abscess/cellulitis of the anterior left victoria Medications Administered Discontinued Medications Generic Name Dose Route Start Last Admin Trade Name Freq PRN Reason Stop Dose Admin Cephalexin HCl 500 mg 01/18/24 21:44 01/18/24 22:39 Cephalexin 500 Mg Capsule PO 01/18/24 21:45 500 mg ONCE ONE Administration Doxycycline Monohydrate 100 mg 01/18/24 21:44 01/18/24 22:39 Doxycycline Monohydrate 100 Mg Capsule PO 01/18/24 21:45 100 mg ONCE ONE Administration Medical Decision Making Medical Decision Making [facility] Narrative: My interpretation of labs: Hematology and chemistry at baseline. -patient received the 1st dose of antibiotics in the ED for cellulitis, sepsis not suspected, vitals within normal limits -patient states that she no longer wants to talk to crisis/care team, states that she feels well. Patient is not SI or HI and did not tried hurting herself prior to arrival. Differential Diagnosis Differential Diagnoses: The differential diagnosis associated with the presentation includes (Anxiety, depression, gastroenteritis, gastritis) Lab Data [facility] Lab Attestation statement: I reviewed the patient's lab results. 01/18/24 21:38 01/18/24 22:15 Labs: Lab Results 01/18/24 01/18/24 01/18/24 Range/Units 21:38 22:12 22:15 WBC 7.2 (4.8-10.8) X10*3/uL RBC 3.99 L (4.20-5.50) X10*6/uL Hgb 12.3 (12.0-16.0) g/dl Hct 37.1 (37.0-47.0) % MCV 93.0 (80.0-98.0) fL MCH 30.8 (27.0-33.0) pg MCHC 33.2 (31.0-35.0) g/dl RDW 13.0 (11.0-16.0) % Plt Count 258 (160-400) X10*3/uL MPV 11.0 (9.4-12.3) fL Immature Gran % (Auto) 0.3 (0.0-0.4) % Neut % (Auto) 71.9 (45-73) % Lymph % (Auto) 20.7 (20-40) % Grant % (Auto) 5.9 (2-11) % Eos % (Auto) 0.6 (0-4) % Baso % (Auto) 0.6 (0-2) % Lymph # (Auto) 1.5 (1.2-4.9) X10*3/uL Grant # (Auto) 0.4 (0.1-1.2) X10*3/uL Eos # (Auto) 0.0 (0.0-0.4) X10*3/uL Baso # (Auto) 0.0 (0.0-0.2) X10*3/uL Abs Immat Gran (auto) 0.02 (0.00-0.03) X10*3/uL Absolute Neuts (auto) 5.2 (2.0-8.3) x10*3/uL Absolute Nucleated RBC 0.000 (0.0-0.012) X10*3/uL Nucleated RBC % (auto) 0.0 (0.0-0.2) /100WBC Hold Purple Top SEE NOTE Sodium 138 (135-145) mmol/L Potassium 3.8 (3.3-5.1) mmol/L Chloride 107 (96-108) mmol/L Carbon Dioxide 22 (22-29) mmol/L Anion Gap 13 (12-20) BUN 6 L (9-16) mg/dL Creatinine 0.82 (0.5-1.4) mg/dL Estim Creat Clear Calc 106.5 Estimated GFR > 60 Random Glucose 91 (60-115) mg/dL Calcium 9.4 (8.4-10.2) mg/dL Total Bilirubin 0.2 (0.0-1.0) mg/dL AST 11 (5-31) U/L ALT 8 (0-31) U/L Alkaline Phosphatase 56 (39-117) U/L Total Protein 6.6 (6.5-8.0) g/dL Albumin 3.9 (3.5-5.0) g/dL Lipase 13 (8-78) U/L Beta HCG, Quant < 2 mIU/mL Discharge Plan Discharge Clinical Impression: Nausea & vomiting, Cellulitis, Depression Patient Disposition: Home, Self-Care Instructions: Cellulitis (ED), Depression (ED), Acute Abdominal Pain (ED) Additional Instructions: Please follow-up with your primary care physician tomorrow. If you have any worsening or new symptoms, please return to the emergency room or call 911 Prescriptions: New doxycycline monohydrate 100 mg capsule 100 mg PO BID Qty: 14 0RF cephalexin 500 mg capsule 500 mg PO BID Qty: 14 0RF No Action haloperidol 5 mg tablet 1 tab PO TID PRN (Reason: Agitation) diphenhydramine HCl [Banophen] 50 mg capsule 2 cap PO BEDTIME hydroxyzine pamoate 50 mg capsule 1 cap PO BID PRN (Reason: Anxiety) zolpidem 10 mg tablet 1 tab PO BEDTIME acetaminophen 500 mg tablet 1 tab PO Q6H PRN (Reason: pain) albuterol sulfate [ProAir HFA] 90 mcg/actuation HFA aerosol inhaler 2 puff inhalation Q6H PRN (Reason: Wheezing) omeprazole 20 mg Tablet,Delayed Release (Dr/Ec) 20 mg PO DAILY@0630 lithium carbonate 300 mg tablet 300 mg PO BID clonidine HCl 0.1 mg tablet 1 tab PO TID benztropine 0.5 mg tablet 1 tab PO BID haloperidol decanoate 100 mg/mL solution 75 mg IM Q4W Rx Instructions: NEXT DOSE: 07/09/23 duloxetine 60 mg capsule,delayed release(DR/EC) 1 cap PO DAILY fluticasone propion-salmeterol [Advair HFA] 230-21 mcg/actuation HFA aerosol inhaler 2 puff INHALATION BID prazosin 1 mg capsule 1 mg PO BEDTIME Protocol: Hold for SBP< HOLD for SBP < : 90 fluticasone propionate 50 mcg/actuation spray,suspension 2 spray intranasal DAILY trazodone 100 mg tablet 200 mg PO BEDTIME lorazepam 1 mg tablet 1 mg PO TID PRN (Reason: Anxiety) prazosin 5 mg capsule 15 mg PO BEDTIME Rx Instructions: TAKE WITH 1 MG FOR TOTAL DOSE 16MG PM cyclobenzaprine 10 mg tablet 10 mg PO TID PRN (Reason: pain, muscle spasm) Qty: 15 0RF acetaminophen [Tylenol Extra Strength] 500 mg tablet 1,000 mg PO Q6H PRN (Reason: fever or pain) Qty: 20 0RF ibuprofen 400 mg tablet 400 mg PO TID PRN (Reason: fever or pain) Qty: 30 0RF Print Language: [place]ayan
[2024-01-18 21:51] LABS: Basophils Percent Auto 0.6 % (0-2); Eosinophils Percent Auto 0.6 % (0-4); Hematocrit 37.1 % (37.0-47.0); Hemoglobin 12.3 g/dl (12.0-16.0); Imm Gran Abs Auto 0.02 X10*3/uL (0.00-0.03); Imm Gran Pct Auto 0.3 % (0.0-0.4); Lymphocytes Absolute Auto 1.5 X10*3/uL (1.2-4.9); Lymphocytes Percent Auto 20.7 % (20-40); Mean Corpuscular HGB Conc 33.2 g/dl (31.0-35.0); Mean Corpuscular Hemoglobin 30.8 pg (27.0-33.0); Monocytes Absolute Auto 0.4 X10*3/uL (0.1-1.2); Monocytes Percent Auto 5.9 % (2-11); Neutrophils Absolute Auto 5.2 x10*3/uL (2.0-8.3); Neutrophils Percent Auto 71.9 % (45-73); Platelet Count 258 X10*3/uL (160-400); Red Blood Count 3.99 X10*6/uL (4.20-5.50); White Blood Count 7.2 X10*3/uL (4.8-10.8)
[2024-01-18] MEDS: cephALEXin 500 MG CAPSULE PO (22:39)
[2024-01-18] MEDS: Doxycycline Monohydrate 100 MG CAPSULE PO (22:39)
[2024-01-18 22:49] LABS: Alanine Aminotransferase 8 U/L (0-31); Albumin Level 3.9 g/dL (3.5-5.0); Alkaline Phosphatase 56 U/L (39-117); Anion Gap 13 (12-20); Aspartate Amino Transferase 11 U/L (5-31); Bilirubin Total 0.2 mg/dL (0.0-1.0); Blood Urea Nitrogen 6 mg/dL (9-16); Calcium 9.4 mg/dL (8.4-10.2); Carbon Dioxide 22 mmol/L (22-29); Chloride 107 mmol/L (96-108); Creatinine Clr Calc Pharmacy 106.5; Estimated Glomerular Filt Rate > 60; Glucose Random 91 mg/dL (60-115); Lipase 13 U/L (8-78); Potassium 3.8 mmol/L (3.3-5.1); Sodium 138 mmol/L (135-145); Total Protein 6.6 g/dL (6.5-8.0)
[2024-01-18 22:53] LABS: HCG Quantitative < 2 mIU/mL
--- NOTE | 2024-01-18 23:01 | PC.NURSE ---
clients belongings are in pod locker number [phone]
[2024-01-19 01:56] VITALS: BP 138/60; PULSE 88; RESP 16; TEMP 36.6; O2SAT 95
[2024-01-19 01:58] VITALS: BP 138/60; PULSE 88; RESP 16; TEMP 36.6; O2SAT 95
== END 2024-01-19 01:59 | disposition home or self-care (01) ==
PROVIDERS: Emergency Provider Emergency Medicine
DX: R11.2 Nausea with vomiting, unspecified (principal); L02.416 Cutaneous abscess of left lower limb; L03.116 Cellulitis of left lower limb; F25.1 Schizoaffective disorder, depressive type; F41.9 Anxiety disorder, unspecified; F43.20 Adjustment disorder, unspecified; F60.3 Borderline personality disorder; F43.12 Post-traumatic stress disorder, chronic; F12.90 Cannabis use, unspecified, uncomplicated; J44.9 Chronic obstructive pulmonary disease, unspecified; Z79.899 Other long term (current) drug therapy
CPT/HCPCS: 36415; 80053; 83690; 84702; 85025; 99283; 99284

== ENCOUNTER 2024-01-24 05:55 | Day surgery (SDC) | payer OTHER, SELFPAY ==
[2024-01-24] VITALS (8 sets, daily range): BP systolic 102–151; BP diastolic 55–91; PULSE 73–93; RESP 15–24; TEMP 36.3–36.7; O2SAT 96–98; BMI 42.4
--- NOTE | 2024-01-24 06:54 | MHC.SHP ---
Pre-Procedural Eval Section A - 24 Hr Update-Section A only Date of Service: 01/24/24 The patient is an INPATIENT: No Changes since office visit: No Cold of Flu in the past 2 weeks, No New Medical Problems, No Changes in Medication and No Patient answered all questions The patient has been examined within 24 hours of the surgical procedure. The History & Physical has been completed within 30 days and I have reviewed it.: Yes Section B - Complete if H&P > 30 days Chief Complaint: depression Allergies: Allergies Allergy/AdvReac Type Severity Reaction Status Date / Time carbamazepine [From TEGRETOL] AdvReac Mild Nausea and Verified 01/18/24 20:56 Vomiting topiramate [From Topamax] AdvReac Mild Nausea and Verified 01/18/24 20:56 Vomiting Plan I have reviewed the history and physical and performed a pertinent physical examination on my patient. No changes have occurred unless specified. Time Spent With Patient Time: Total time managing care of this patient today ____ minutes.
--- NOTE | 2024-01-24 06:54 | HO.ANESPROP2 ---
[facility] Active Problems Active Problems: All Active Problems Port-A-Cath in place (Acute) Intentional self-harm (Acute) COPD (chronic obstructive pulmonary disease) (Acute) Asthma (Acute) Adjustment disorder (Acute) Anxiety (Acute) Injury of ligament of right knee (Acute) Sprain of anterior cruciate ligament of right knee (Acute) Hernia (Chronic) Schizoaffective disorder, depressive type (Chronic) Chronic post-traumatic stress disorder (PTSD) (Chronic) Increased BMI (Acute) GERD (gastroesophageal reflux disease) (Acute) Borderline personality disorder (Chronic) Past Medical History Medical History Port-A-Cath in place History of electroconvulsive therapy COVID-19 COVID-19 Sprain of left foot Chronic post-traumatic stress disorder (PTSD) COPD (chronic obstructive pulmonary disease) Increased BMI GERD (gastroesophageal reflux disease) Recurrent major depression-severe Acute post-traumatic stress disorder Injury, self-inflicted Suicidal ideation Self-harming behavior Intentional self-harm Suicidal ideation Borderline personality disorder Schizoaffective disorder Adjustment disorder Asthma Depression Anxiety PTSD (post-traumatic stress disorder) Family History Family History Mother Brain cancer Other No family history of cardiac disease Family history of problems with anesthesia: No Surgical History History of Problems with Anesthesia: No Social History Social History Household Members: Other Household Members Other:: correction Housing: Other Housing Other:: correction Do you presently have visiting nurse or other home services: No Unable to assess alcohol history related to: Refusing to respond Alcohol intake: never Comment: 1:1 sitter Patient Tobacco Use Status: Former Tobacco user Tobacco use type: Cigarette Cigarette Packs Per Day: 0.5 Cigarettes Per Day: 4 Years Smoked: 20 e-Cigarette/Vaping Use: Never Used Second Hand Smoke Exposure: No Substance Use Type: Marijuana Advance Directives: No Advance Directives Information Provided: Yes service: No Sexual orientation: Straight/Heterosexual Meds Allergies Allergy/AdvReac Type Severity Reaction Status Date / Time carbamazepine [From TEGRETOL] AdvReac Mild Nausea and Verified 01/18/24 20:56 Vomiting topiramate [From Topamax] AdvReac Mild Nausea and Verified 01/18/24 20:56 Vomiting Active Medications: Current Medications Lactated Ringer's (Lr) 1,000 mls @ 50 mls/hr IVCONT .Q20H SULEIMAN Home Medications ?Medication ?Instructions ?Recorded ?Confirmed ?Last Taken ?Type acetaminophen 500 mg tablet 1 tab PO Q6H PRN pain 08/14/22 09/04/23 03/13/23 History albuterol sulfate 90 mcg/actuation 2 puff inhalation Q6H PRN Wheezing 08/14/22 09/04/23 03/13/23 History aerosol inhaler (ProAir HFA) diphenhydramine HCl 50 mg capsule 2 cap PO BEDTIME 08/14/22 09/04/23 07/21/23 20:00 History (Banophen) haloperidol 5 mg tablet 1 tab PO TID PRN Agitation 08/14/22 09/04/23 03/13/23 History hydroxyzine pamoate 50 mg capsule 1 cap PO BID PRN Anxiety 08/14/22 09/04/23 03/13/23 History omeprazole 20 mg tablet,delayed 20 mg PO DAILY@0630 08/14/22 09/04/23 07/21/23 20:00 History release zolpidem 10 mg tablet 1 tab PO BEDTIME 08/14/22 09/04/23 07/21/23 20:00 History fluticasone propionate 230 2 puff inhalation BID 10/07/22 09/04/23 07/22/23 08:00 History mcg-salmeterol 21 mcg/actuation HFA inhaler (Advair HFA) benztropine 0.5 mg tablet 1 tab PO BID 10/26/22 09/04/23 07/22/23 08:00 History clonidine HCl 0.1 mg tablet 1 tab PO TID 10/26/22 09/04/23 07/22/23 14:00 History duloxetine 60 mg capsule,delayed 1 cap PO DAILY 10/26/22 09/04/23 07/22/23 08:00 History release haloperidol decanoate 100 mg/mL 75 mg IM Q4W 10/26/22 09/04/23 08/25/23 History intramuscular solution lithium carbonate 300 mg tablet 300 mg PO BID 10/26/22 09/04/23 07/22/23 08:00 History lorazepam 1 mg tablet 1 mg PO TID PRN Anxiety 03/25/23 09/04/23 Unknown History prazosin 5 mg capsule 15 mg PO BEDTIME 03/25/23 09/04/23 07/21/23 20:00 History fluticasone propionate 50 2 spray intranasal DAILY 06/17/23 09/04/23 07/22/23 08:00 History mcg/actuation nasal spray,suspension prazosin 1 mg capsule 1 mg PO BEDTIME 06/17/23 09/04/23 07/21/23 20:00 History trazodone 100 mg tablet 200 mg PO BEDTIME 06/17/23 09/04/23 07/21/23 20:00 History Exam Height,Weight and Vital Signs: Height 4 ft 11 in Weight 95.254 kg Last Vital Signs Temp 97.3 F 01/24/24 06:37 Pulse 93 01/24/24 06:37 Resp 20 01/24/24 06:37 BP 129/80 01/24/24 06:37 Pulse Ox 97 01/24/24 06:37 O2 Del Method Room Air 01/24/24 06:37 Airway Mallampati Class: II TM Dist: >3cm Neck ROM: Full Heart: rrr Lungs: cta Assessment and Plan Assessment Anesthesia Assessment: Anesthesia Plan Discussed Final Anesthetic Review Family History of Problems with Anesthesia: No History of Problems with Anesthesia: No NPO: Yes ASA Class: III Final Preanesthetic Review: No Changes in Pt Med Stat, Meds/Allgs Chart Reviewed, Consent Obtained/Reviewed and Anes Risks/Benef Reviewed Patient Risk: Intermediate Procedure Risk: Intermediate Anesthetic Plan Anesthetic Plan: GA Disposition: Standard PACU
[2024-01-24] MEDS: Lactated Ringers 1,000 ML 50 ML IVCONT (06:58)
--- NOTE | 2024-01-24 07:28 | HO.ECTPROC ---
ECT Procedure Note Diagnosis/Treatment Date of Service: 01/24/24 Diagnosis: Schizoaffective Disorder Previous ECT Date: 01/03/24 Treatment: Maintenance Interval Clinical Notes: The patient reported some stressors, she was on the ED due to back pain. No side effects with previous ECT. ECT done as usual, no complications, woke up well. Time: Total time managing care of this patient today __30__ minutes. ECT Settings Device: THYMATRON DGx Electrode Placement: Bitemporal Program/Pulse Width: 0.50 Energy Percent: 100 Seizure Duration By EEG (in seconds): 16 By Motor Observation (in seconds): 100 Medications Administration General Anesthetic: Etomidate (16) Muscle Relaxant: Succinylcholine (100) Ancillary Medications Analgesics: Torodol - Pre ECT Anti-emetics: Zofran - Pre ECT Airway Management Airway Management: Bag Mask Ventilation Treatment Recommendations No Changes Recommended: No change Pt Tolerated Procedure w/o Issue: Yes
== END 2024-01-24 09:20 | disposition home or self-care (01) ==
PROVIDERS: Visit Provider Psychiatry & Neurology Psychiatry
PROC: (CPT 90870; principal; 2024-01-24 07:00)
DX: F25.9 Schizoaffective disorder, unspecified (principal)
CPT/HCPCS: 90870; J0330; J1642; J1885; J2405

== ENCOUNTER → 2024-01-24 05:55 | Outpatient (BNV) | payer OTHER, SELFPAY | PROVIDERS: Visit Provider Psychiatry & Neurology Psychiatry | DX: F33.3 Major depressive disorder, recurrent, severe with psychotic symptoms (principal) | CPT/HCPCS: 90870 ==

== ENCOUNTER 2024-02-15 21:57 | Emergency (ER) | payer OTHER, SELFPAY ==
[2024-02-15 22:06] VITALS: BP 108/64; BP 110/73; PULSE 105; PULSE 90; RESP 18; TEMP 36.5; O2SAT 96; O2SAT 99; BMI 39.9
--- NOTE | 2024-02-15 22:18 | ED.PSYCH ---
HPI - Psych General Chief Complaint: Psychiatric Symptoms Stated Complaint: CRISIS Time Seen by Provider: 02/15/24 22:08 Source: patient Mode of arrival: ambulatory Limitations: no limitations History of Present Illness ED Provider: candelario KUMAR Narrative: Patient's anxiety PTSD schizoaffective disorder feels suicidal with a plan to hurt herself with glass 7 days ago was the anniversary of sister's patient has been here frequently for similar suicidal ideation Related Data Home Medications ?Medication ?Instructions ?Recorded ?Confirmed acetaminophen 500 mg tablet 1 tab PO Q6H PRN pain 08/14/22 09/04/23 albuterol sulfate 90 mcg/actuation 2 puff inhalation Q6H PRN Wheezing 08/14/22 09/04/23 aerosol inhaler (ProAir HFA) diphenhydramine HCl 50 mg capsule 2 cap PO BEDTIME 08/14/22 09/04/23 (Banophen) haloperidol 5 mg tablet 1 tab PO TID PRN Agitation 08/14/22 09/04/23 hydroxyzine pamoate 50 mg capsule 1 cap PO BID PRN Anxiety 08/14/22 09/04/23 omeprazole 20 mg tablet,delayed 20 mg PO DAILY@0630 08/14/22 09/04/23 release zolpidem 10 mg tablet 1 tab PO BEDTIME 08/14/22 09/04/23 fluticasone propionate 230 2 puff inhalation BID 10/07/22 09/04/23 mcg-salmeterol 21 mcg/actuation HFA inhaler (Advair HFA) benztropine 0.5 mg tablet 1 tab PO BID 10/26/22 09/04/23 clonidine HCl 0.1 mg tablet 1 tab PO TID 10/26/22 09/04/23 duloxetine 60 mg capsule,delayed 1 cap PO DAILY 10/26/22 09/04/23 release haloperidol decanoate 100 mg/mL 75 mg IM Q4W 10/26/22 09/04/23 intramuscular solution lithium carbonate 300 mg tablet 300 mg PO BID 10/26/22 09/04/23 lorazepam 1 mg tablet 1 mg PO TID PRN Anxiety 03/25/23 09/04/23 prazosin 5 mg capsule 15 mg PO BEDTIME 03/25/23 09/04/23 fluticasone propionate 50 2 spray intranasal DAILY 06/17/23 09/04/23 mcg/actuation nasal spray,suspension prazosin 1 mg capsule 1 mg PO BEDTIME 06/17/23 09/04/23 trazodone 100 mg tablet 200 mg PO BEDTIME 06/17/23 09/04/23 Previous Rx's ?Medication ?Instructions ?Recorded acetaminophen 500 mg tablet 1,000 mg (2 x 500 mg) PO Q6H PRN 01/10/24 (Tylenol Extra Strength) fever or pain #20 tabs cyclobenzaprine 10 mg tablet 10 mg PO TID PRN pain, muscle 01/10/24 spasm #15 tabs ibuprofen 400 mg tablet 400 mg PO TID PRN fever or pain 01/10/24 #30 tabs cephalexin 500 mg capsule 500 mg PO BID #14 caps 01/19/24 doxycycline monohydrate 100 mg 100 mg PO BID #14 caps 01/19/24 capsule Allergies Allergy/AdvReac Type Severity Reaction Status Date / Time carbamazepine [From TEGRETOL] AdvReac Mild Nausea and Verified 02/15/24 22:10 Vomiting topiramate [From Topamax] AdvReac Mild Nausea and Verified 02/15/24 22:10 Vomiting Review of Systems Review of Systems: Yes all other systems are reviewed and are negative PMFSH Past Medical History Medical History Port-A-Cath in place History of electroconvulsive therapy COVID-19 COVID-19 Sprain of left foot Chronic post-traumatic stress disorder (PTSD) COPD (chronic obstructive pulmonary disease) Increased BMI GERD (gastroesophageal reflux disease) Recurrent major depression-severe Acute post-traumatic stress disorder Injury, self-inflicted Suicidal ideation Self-harming behavior Intentional self-harm Suicidal ideation Borderline personality disorder Schizoaffective disorder Adjustment disorder Asthma Depression Anxiety PTSD (post-traumatic stress disorder) Family History Family History Mother Brain cancer Other No family history of cardiac disease Social History Social History Household Members: Other Household Members Other:: jail Housing: Other Housing Other:: jail Do you presently have visiting nurse or other home services: No Unable to assess alcohol history related to: Refusing to respond Alcohol intake: never Comment: 1:1 sitter Patient Tobacco Use Status: Former Tobacco user Tobacco use type: Cigarette Cigarette Packs Per Day: 0.5 Cigarettes Per Day: 4 Years Smoked: 20 e-Cigarette/Vaping Use: Never Used Second Hand Smoke Exposure: No Substance Use Type: Marijuana Advance Directives: No Advance Directives Information Provided: No Do you have a plan to hurt others: No Plan service: No Sexual orientation: Straight/Heterosexual Physical Exam Vital Signs: Vital Signs: Last Vital Signs Temp 97.7 F 02/15/24 22:06 Pulse 105 H 02/15/24 22:06 Resp 18 02/15/24 22:06 BP 110/73 02/15/24 22:06 Pulse Ox 96 02/15/24 22:06 O2 Del Method Room Air 02/15/24 22:06 BMI result Body Mass Index 39.9 Appearance: Alert. Oriented X3. No acute distress. Eyes: No pallor or icterus ENT: Pharynx normal. Oral Mucosa moist Neck: Normal inspection. Neck supple. CVS: Normal heart rate and rhythm. Pulses normal. Respiratory: No respiratory distress. Equal air entry bilateral, no wheezing/rales/rhonchi Abdomen: Soft and nontender. Bowel sounds are present, no mass palpable, no CVA tenderness Skin: Skin warm and dry. Normal skin color. Normal skin turgor. Extremities: No lower extremity edema. No calf tenderness psych: Anxious will depressed with suicidal feeling Neuro: Oriented X 3. No motor deficit. No sensory deficit.No cerebellar signs , cranial nerves II-XII intact Medications Administered Discontinued Medications Generic Name Dose Route Start Last Admin Trade Name Leno PRN Reason Stop Dose Admin Lorazepam 2 mg 02/15/24 22:42 02/15/24 22:44 Lorazepam 1 Mg Tablet PO 02/15/24 22:43 2 mg ONCE ONE Administration Olanzapine 10 mg 02/15/24 22:42 02/15/24 22:50 Olanzapine 10 Mg Vial IM 02/15/24 22:43 10 mg ONCE ONE Administration Medical Decision Making Medical Decision Making MDM Narrative: Patient with depression and SI feeling will get care team involved Lab Data MDM Lab Attestation statement: I reviewed the patient's lab results. 02/16/24 01:43 02/16/24 01:43 Labs: Lab Results 07/03/24 07/03/24 Range/Units 01:33 01:43 WBC 7.1 (4.8-10.8) X10*3/uL RBC 3.93 L (4.20-5.50) X10*6/uL Hgb 11.8 L (12.0-16.0) g/dl Hct 35.5 L (37.0-47.0) % MCV 90.3 (80.0-98.0) fL MCH 30.0 (27.0-33.0) pg MCHC 33.2 (31.0-35.0) g/dl RDW 13.2 (11.0-16.0) % Plt Count 242 (160-400) X10*3/uL MPV 11.0 (9.4-12.3) fL Immature Gran % (Auto) 0.1 (0.0-0.4) % Neut % (Auto) 67.8 (45-73) % Lymph % (Auto) 26.0 (20-40) % [place] % (Auto) 4.7 (2-11) % Eos % (Auto) 0.8 (0-4) % Baso % (Auto) 0.6 (0-2) % Lymph # (Auto) 1.8 (1.2-4.9) X10*3/uL [place] # (Auto) 0.3 (0.1-1.2) X10*3/uL Eos # (Auto) 0.1 (0.0-0.4) X10*3/uL Baso # (Auto) 0.0 (0.0-0.2) X10*3/uL Abs Immat Gran (auto) 0.01 (0.00-0.03) X10*3/uL Absolute Neuts (auto) 4.8 (2.0-8.3) x10*3/uL Absolute Nucleated RBC 0.000 (0.0-0.012) X10*3/uL Nucleated RBC % (auto) 0.0 (0.0-0.2) /100WBC Urine Color Yellow Urine Appearance Clear Urine pH 5.5 (5.0-9.0) Ur Specific [place] 1.010 (1.005-1.025) Urine Protein Negative (Neg-Trace) mg/dL Urine Glucose (UA) Negative (Negative) mg/dL Urine Ketones Negative (Negative) mg/dL Urine Blood Negative (Negative) Urine Nitrite Negative (Negative) Ur Leukocyte Esterase Negative (Negative) Urine Test NEGATIVE (NEGATIVE) Discharge Plan Discharge Clinical Impression: Schizoaffective disorder, depressive type, Intentional self-harm, Suicidal ideation Patient Disposition: Still a Patient Prescriptions: No Action haloperidol 5 mg tablet 1 tab PO TID PRN (Reason: Agitation) diphenhydramine HCl [Banophen] 50 mg capsule 2 cap PO BEDTIME hydroxyzine pamoate 50 mg capsule 1 cap PO BID PRN (Reason: Anxiety) zolpidem 10 mg tablet 1 tab PO BEDTIME acetaminophen 500 mg tablet 1 tab PO Q6H PRN (Reason: pain) albuterol sulfate [ProAir HFA] 90 mcg/actuation HFA aerosol inhaler 2 puff inhalation Q6H PRN (Reason: Wheezing) omeprazole 20 mg Tablet,Delayed Release (Dr/Ec) 20 mg PO DAILY@0630 lithium carbonate 300 mg tablet 300 mg PO BID clonidine HCl 0.1 mg tablet 1 tab PO TID benztropine 0.5 mg tablet 1 tab PO BID haloperidol decanoate 100 mg/mL solution 75 mg IM Q4W Rx Instructions: NEXT DOSE: 07/09/23 duloxetine 60 mg capsule,delayed release(DR/EC) 1 cap PO DAILY fluticasone propion-salmeterol [Advair HFA] 230-21 mcg/actuation HFA aerosol inhaler 2 puff INHALATION BID prazosin 1 mg capsule 1 mg PO BEDTIME Protocol: Hold for SBP< HOLD for SBP < : 90 fluticasone propionate 50 mcg/actuation spray,suspension 2 spray intranasal DAILY trazodone 100 mg tablet 200 mg PO BEDTIME doxycycline monohydrate 100 mg capsule 100 mg PO BID Qty: 14 0RF cephalexin 500 mg capsule 500 mg PO BID Qty: 14 0RF lorazepam 1 mg tablet 1 mg PO TID PRN (Reason: Anxiety) prazosin 5 mg capsule 15 mg PO BEDTIME Rx Instructions: TAKE WITH 1 MG FOR TOTAL DOSE 16MG PM cyclobenzaprine 10 mg tablet 10 mg PO TID PRN (Reason: pain, muscle spasm) Qty: 15 0RF acetaminophen [Tylenol Extra Strength] 500 mg tablet 1,000 mg PO Q6H PRN (Reason: fever or pain) Qty: 20 0RF ibuprofen 400 mg tablet 400 mg PO TID PRN (Reason: fever or pain) Qty: 30 0RF Interventions: [place]-Suicide Risk Severity Scale Last Done: 02/16/24 00:36 Print Language: Divehi
[2024-02-15] MEDS: LORazepam 1 MG TABLET 2 MG PO (22:44)
[2024-02-15] MEDS: OLANZapine 10 MG VIAL IM (22:50)
--- NOTE | 2024-02-15 22:51 | PC.NURSE ---
patient had exhibited some self harming gesturing 5 minutes after departure of provider, redirectable somewhat but calmed more once medications she requested were provided.
--- NOTE | 2024-02-16 00:57 | MHC.CARE ---
Pt was medicated at approx. 23:00 with a 10&2. She was resting comfortably, and will be seen by the morning shift of the CARE Team.
[2024-02-16 01:42] LABS: Appearance Urine Clear; Color Urine Yellow; Glucose Urine UA Negative (Negative); Leukocyte Esterase Urine Negative (Negative); Nitrite Urine Negative (Negative); PH 5.5 (5.0-9.0); Urine Blood Negative (Negative); Urine Ketones Negative (Negative); Urine Protein Negative (Neg-Trace)
[2024-02-16 01:43] LABS: UPreg QC Valid YES; Urine Pregnancy NEGATIVE (NEGATIVE)
[2024-02-16 01:44] LABS: Bacteria Urine Trace (None Seen); Hyaline Casts Urine 0-2 /LPF (0-2); RBC Urine 0-2 /HPF (0-2); WBC Urine 0-5 /HPF (0-5)
[2024-02-16 01:47] LABS: MANUAL DIFF FLAG NO
[2024-02-16 01:48] LABS: Basophils Percent Auto 0.6 % (0-2); Eosinophils Absolute Auto 0.1 X10*3/uL (0.0-0.4); Eosinophils Percent Auto 0.8 % (0-4); Hematocrit 35.5 % (37.0-47.0); Hemoglobin 11.8 g/dl (12.0-16.0); Imm Gran Abs Auto 0.01 X10*3/uL (0.00-0.03); Imm Gran Pct Auto 0.1 % (0.0-0.4); Lymphocytes Absolute Auto 1.8 X10*3/uL (1.2-4.9); Mean Corpuscular HGB Conc 33.2 g/dl (31.0-35.0); Mean Corpuscular Volume 90.3 fL (80.0-98.0); Monocytes Absolute Auto 0.3 X10*3/uL (0.1-1.2); Monocytes Percent Auto 4.7 % (2-11); Neutrophils Absolute Auto 4.8 x10*3/uL (2.0-8.3); Neutrophils Percent Auto 67.8 % (45-73); Platelet Count 242 X10*3/uL (160-400); Red Blood Count 3.93 X10*6/uL (4.20-5.50); Red Cell Distribution Width 13.2 % (11.0-16.0); White Blood Count 7.1 X10*3/uL (4.8-10.8)
[2024-02-16 01:54] LABS: Amphetamine Screen Urine Not Detected (Not Detect); Barbiturates, Urine Not Detected (Not Detect); Benzodiazepines Screen Urine Not Detected (Not Detect); Buprenorphine Scr Not Detected (Not Detect); Cannabinoid Screen Urine POSITIVE (Not Detect); Cocaine Screen Urine Not Detected (Not Detect); Fentanyl, urine Not Detected (Not Detect); Methadone Screen, Urine Not Detected (Not Detect); Opiate Screen Urine Not Detected (Not Detect); Oxycodone Screen Urine Not Detected (Not Detect); Phencyclidine Screen Urine Not Detected (Not Detect)
[2024-02-16 02:06] LABS: Alanine Aminotransferase 8 U/L (0-31); Albumin Level 3.7 g/dL (3.5-5.0); Alkaline Phosphatase 55 U/L (39-117); Anion Gap 11 (12-20); Aspartate Amino Transferase 11 U/L (5-31); Bilirubin Total 0.2 mg/dL (0.0-1.0); Blood Urea Nitrogen 6 mg/dL (9-16); Calcium 9.2 mg/dL (8.4-10.2); Carbon Dioxide 24 mmol/L (22-29); Chloride 109 mmol/L (96-108); Creatinine Clr Calc Pharmacy 104.6; Estimated Glomerular Filt Rate > 60; Ethanol < 10 mg/dL; Glucose Random 105 mg/dL (60-115); Potassium 3.7 mmol/L (3.3-5.1); Sodium 140 mmol/L (135-145); Total Protein 6.3 g/dL (6.5-8.0)
[2024-02-16 06:10] VITALS: BP 98/70; PULSE 82; TEMP 36.3; O2SAT 97
--- NOTE | 2024-02-16 07:24 | PC.NURSE ---
Assumed care of patient at 0645, patient appears to be sleeping, respirations even and unlabored, no apparent distress noted. Continue plan of care for CARE team assessment this am
--- NOTE | 2024-02-16 08:49 | PC.NURSE ---
Marlena, ACCS-N called for update on patient. Ermias, CARE team aware [phone]
[2024-02-16 13:26] VITALS: BP 123/88; PULSE 93; RESP 20; TEMP 36.3; O2SAT 97
== END 2024-02-16 13:33 | disposition home or self-care (01) ==
PROVIDERS: Emergency Provider Internal Medicine
DX: R45.851 Suicidal ideations (principal); F25.1 Schizoaffective disorder, depressive type; Z79.899 Other long term (current) drug therapy; J44.9 Chronic obstructive pulmonary disease, unspecified; J45.909 Unspecified asthma, uncomplicated
CPT/HCPCS: 36415; 80053; 80178; 80307; 81001; 81025; 85025; 96372; 99284; 99285; J2359; S9485

== ENCOUNTER 2024-02-21 01:19 | Inpatient (IN) | payer OTHER, SELFPAY ==
[2024-02-21] VITALS (7 sets, daily range): BP systolic 109–146; BP diastolic 61–90; PULSE 72–105; RESP 15–18; TEMP 36.1–36.9; O2SAT 95–98; BMI 40.4
--- NOTE | 2024-02-21 01:24 | ED_ITS ---
HPI - General Adult General Stated complaint: si Time Seen by Provider: 02/21/24 01:24 Source: patient and EMS Mode of arrival: EMS Limitations: no limitations History of Present Illness ED Provider: Kaylee Hilario PA-C HPI narrative: Patient is a 38 year old assigned female at with a history of COPD, PTSD, adjustment disorder, schizoaffective disorder, and borderline personality di sorder presenting to the emergency department today with suicidal ideation. Patient states that she has been feeling more depressed and having thoughts of killing herself. Patient denies any dizziness, lightheadedness, abdominal pain, nausea, vomiting, fever, chills, blurry vision, double vision, loss of vision, chest pain, difficulty breathing, shortness of breath, back pain, night sweats, pain with urination, increased urinary frequency, increased urinary urgency, blood in her urine or stool, syncope or a near syncopal episode, recent trauma or falls, bowel incontinence, bladder incontinence, or any other complaints at this time. Relieving factors: none Exacerbating factors: none Associated symptoms: denies other symptoms Treatments prior to arrival: none Related Data Home Medications ?Medication ?Instructions ?Recorded ?Confirmed albuterol sulfate 90 mcg/actuation 2 puff inhalation Q6H PRN Wheezing 08/14/22 02/16/24 aerosol inhaler (ProAir HFA) diphenhydramine HCl 50 mg capsule 2 cap PO BEDTIME 08/14/22 02/16/24 (Banophen) haloperidol 5 mg tablet 1 tab PO TID PRN Agitation 08/14/22 02/16/24 omeprazole 20 mg tablet,delayed 20 mg PO DAILY@0630 08/14/22 02/16/24 release zolpidem 10 mg tablet 1 tab PO BEDTIME 08/14/22 02/16/24 fluticasone propionate 230 2 puff inhalation BID 10/07/22 02/16/24 mcg-salmeterol 21 mcg/actuation HFA inhaler (Advair HFA) benztropine 0.5 mg tablet 1 tab PO BID 10/26/22 02/16/24 clonidine HCl 0.1 mg tablet 1 tab PO TID 10/26/22 02/16/24 duloxetine 60 mg capsule,delayed 1 cap PO DAILY 10/26/22 02/16/24 release haloperidol decanoate 100 mg/mL 75 mg IM Q4W 10/26/22 02/16/24 intramuscular solution lithium carbonate 300 mg tablet 300 mg PO BID 10/26/22 02/16/24 lorazepam 1 mg tablet 1 mg PO TID PRN Anxiety 03/25/23 02/16/24 fluticasone propionate 50 2 spray intranasal DAILY 06/17/23 02/16/24 mcg/actuation nasal spray,suspension prazosin 1 mg capsule 1 mg PO BEDTIME 06/17/23 02/16/24 trazodone 100 mg tablet 200 mg PO BEDTIME 06/17/23 02/16/24 cetirizine 10 mg tablet 10 mg PO DAILY 02/16/24 02/16/24 prazosin 5 mg capsule 15 mg PO BEDTIME 02/16/24 02/16/24 Allergies Allergy/AdvReac Type Severity Reaction Status Date / Time carbamazepine [From TEGRETOL] AdvReac Mild Nausea and Verified 02/15/24 22:10 Vomiting topiramate [From Topamax] AdvReac Mild Nausea and Verified 02/15/24 22:10 Vomiting Review of Systems Constitutional: Constitutional: Reports no additional constitutional complaints, Denies chills, Denies fever(s) and Denies night sweats Eyes: Eyes: Reports no additional eye complaints, Denies blurry vision, Denies change in vision, Denies diplopia, Denies eye discharge, Denies loss of vision and Denies eye pain ENT: Denies dizziness Cardiovascular: Cardiovascular: Reports no additional cardiovascular complaints, Denies chest pain, Denies lightheadedness, Denies Loss of Consciousness and Denies dyspnea Respiratory: Respiratory: Reports no additional respiratory complaints and Denies dyspnea Gastrointestinal: Gastrointestinal: Reports no additional gastrointestinal complaints, Denies abdominal pain, Denies melena, Denies hematochezia, Denies change in bowel habits and Denies change in stool character Genitourinary: Genitourinary: Denies hematuria, Denies urinary frequency, Denies dysuria, Denies urinary incontinence, Denies urinary hesitancy and Denies urinary urgency Musculoskeletal: Musculoskeletal: Reports no additional musculoskeletal complaints, Denies numbness and Denies tingling Neurologic: Denies dizziness, Denies loss of vision, Denies numbness and Denies tingling Psychiatric: Psychiatric: Denies homicidal ideation and Reports suicidal ideation Endocrine: Endocrine: Reports no additional endocrine complaints Hematologic/Lymphatic: Hematologic/Lymphatic: Reports no additional hematologic/lymphatic complaints Allergic/Immunologic: Allergic/Immunologic: Reports no additional allergic/immunologic complaints [facility] Past Medical History Attestation statement: The following information was validated with the patient. Source: old records reviewed and nursing notes reviewed Medical History Port-A-Cath in place History of electroconvulsive therapy COVID-19 COVID-19 Sprain of left foot Chronic post-traumatic stress disorder (PTSD) COPD (chronic obstructive pulmonary disease) Increased BMI GERD (gastroesophageal reflux disease) Recurrent major depression-severe Acute post-traumatic stress disorder Injury, self-inflicted Suicidal ideation Self-harming behavior Intentional self-harm Suicidal ideation Borderline personality disorder Schizoaffective disorder Adjustment disorder Asthma Depression Anxiety PTSD (post-traumatic stress disorder) Family History Family History Mother Brain cancer Other No family history of cardiac disease Social History Social History Household Members: Other Household Members Other:: detention Housing: Other Housing Other:: detention Do you presently have visiting nurse or other home services: No Unable to assess alcohol history related to: Unable to respond Alcohol intake: never Comment: 1:1 sitter Patient Tobacco Use Status: Former Tobacco user Tobacco use type: Cigarette Cigarette Packs Per Day: 0.5 Cigarettes Per Day: 4 Years Smoked: 20 e-Cigarette/Vaping Use: Never Used Second Hand Smoke Exposure: No Substance Use Type: Marijuana service: No Sexual orientation: Straight/Heterosexual Physical Exam ED Const General: cooperative, no acute distress, alert and awake Nutritional Appearance: well nourished Orientation/consciousness: patient oriented x3 Limitations: no limitations HENMT Head: Yes normal to inspection and Yes atraumatic Ears: hearing grossly normal bilaterally and external ears normal General nose exam: Normal external nose present, no nasal discharge noted and no epistaxis Face and sinus: Yes normal facial exam, No abrasion and No laceration Mouth: Normal oral and palatal mucosa present, no drooling and no muffled voice Eyes General: appearance normal, both eyes and all related structures Periorbital: periorbital findings normal Eyelids: Yes eyelids normal Conjunctivae: conjunctivae normal Pupils: Equal, round and reactive pupils present EOM: EOMs intact bilaterally Neck Neck: Yes normal visual inspection, Yes full ROM and Yes no lymphadenopathy Chest Chest palpation & inspection: normal inspection of the chest Resp Effort & Inspection: normal respiratory effort and able to speak in complete sentences GI Inspection: Yes normal to inspection Neuro General: patient oriented x3 and moves all extremities Cranial nerves: Yes Equal, round and reactive pupils present Cognition (Neuro): normal cognition Extrem Other: self harm scars present General: Yes full ROM and Yes capillary refill normal Psych Appearance: grossly normal Mental Status: mental status grossly normal Affect: Sad affect present Attitude: Guarded attititude/behavior present Thought content: Suicidality present Medical Decision Making Medical Decision Making MDM Narrative: Patient is a 38 year old assigned female at with a history of COPD, PTSD, adjustment disorder, schizoaffective disorder, and borderline personality disorder presenting to the emergency department today with suicidal ideation. Patient's physical exam was as noted in the physical exam portion of this note. Patient's blood work is pending at this time. Patient's urine is pending at this time. I explained my physical exam findings to the patient. I answered all questions asked by the patient. Patient's disposition will be determined after her urine results, labs result, and the CARE team evaluates her. Differential Diagnosis Differential Diagnoses: The differential diagnosis associated with the presentation includes Suicidal ideation Depression PTSD Admission/Observation Consideration of admission/observation: Escalation of care including admission/observation considered Patient's disposition will be determined after her urine results, labs result, and the CARE team evaluates her. Independent Historian Clinical information obtained from an independent historian. History obtained fr om or confirmed by: EMS (EMS provided additional history and confirmed the history provided by the patient.) Discharge Plan Discharge Clinical Impression: Suicidal ideation Patient Disposition: Still a Patient Prescriptions: No Action haloperidol 5 mg tablet 1 tab PO TID PRN (Reason: Agitation) diphenhydramine HCl [Banophen] 50 mg capsule 2 cap PO BEDTIME zolpidem 10 mg tablet 1 tab PO BEDTIME albuterol sulfate [ProAir HFA] 90 mcg/actuation HFA aerosol inhaler 2 puff inhalation Q6H PRN (Reason: Wheezing) omeprazole 20 mg Tablet,Delayed Release (Dr/Ec) 20 mg PO DAILY@0630 lithium carbonate 300 mg tablet 300 mg PO BID clonidine HCl 0.1 mg tablet 1 tab PO TID benztropine 0.5 mg tablet 1 tab PO BID haloperidol decanoate 100 mg/mL solution 75 mg IM Q4W Rx Instructions: NEXT DOSE: 07/09/23 duloxetine 60 mg capsule,delayed release(DR/EC) 1 cap PO DAILY fluticasone propion-salmeterol [Advair HFA] 230-21 mcg/actuation HFA aerosol inhaler 2 puff INHALATION BID prazosin 1 mg capsule 1 mg PO BEDTIME Protocol: Hold for SBP< HOLD for SBP < : 90 fluticasone propionate 50 mcg/actuation spray,suspension 2 spray intranasal DAILY trazodone 100 mg tablet 200 mg PO BEDTIME lorazepam 1 mg tablet 1 mg PO TID PRN (Reason: Anxiety) prazosin 5 mg capsule 15 mg PO BEDTIME cetirizine 10 mg tablet 10 mg PO DAILY Print Language: Polish
--- NOTE | 2024-02-21 01:40 | PC.NURSE ---
Addendum entered by Rodolfo Adkins 02/21/24 03:18: late entry: pt agreed to complete control and recovery combat rescue and thorough search done by security; belongings locked up. labs obtained. 1:1 sitter at bedside. Original Note: pt BIBA from [facility], section 12, reporting voices are telling her kill herself. pt denies HI. pt reports she does not have a plan. pt initially calm/cooperative and changed into hospital clothes with PCT/security. at this time pt is refusing to remove undergarments. security and chargemaster specialist at bedside.
[2024-02-21 02:40] LABS: MANUAL DIFF FLAG NO
[2024-02-21 02:43] LABS: Basophils Percent Auto 0.3 % (0-2); Eosinophils Absolute Auto 0.1 X10*3/uL (0.0-0.4); Eosinophils Percent Auto 0.6 % (0-4); Hematocrit 35.1 % (37.0-47.0); Hemoglobin 11.7 g/dl (12.0-16.0); Imm Gran Abs Auto 0.02 X10*3/uL (0.00-0.03); Imm Gran Pct Auto 0.2 % (0.0-0.4); Lymphocytes Percent Auto 23.3 % (20-40); Mean Corpuscular HGB Conc 33.3 g/dl (31.0-35.0); Mean Corpuscular Hemoglobin 30.2 pg (27.0-33.0); Mean Corpuscular Volume 90.7 fL (80.0-98.0); Mean Platelet Volume 11.3 fL (9.4-12.3); Monocytes Absolute Auto 0.4 X10*3/uL (0.1-1.2); Monocytes Percent Auto 4.8 % (2-11); Neutrophils Absolute Auto 6.2 x10*3/uL (2.0-8.3); Neutrophils Percent Auto 70.8 % (45-73); Platelet Count 230 X10*3/uL (160-400); Red Blood Count 3.87 X10*6/uL (4.20-5.50); Red Cell Distribution Width 13.3 % (11.0-16.0); White Blood Count 8.8 X10*3/uL (4.8-10.8)
[2024-02-21 02:58] LABS: Acetaminophen LAB < 3 mcg/mL (<30); Alanine Aminotransferase 8 U/L (0-31); Alkaline Phosphatase 55 U/L (39-117); Anion Gap 12 (12-20); Aspartate Amino Transferase 11 U/L (5-31); Bilirubin Total 0.3 mg/dL (0.0-1.0); Blood Urea Nitrogen 8 mg/dL (9-16); Calcium 9.2 mg/dL (8.4-10.2); Carbon Dioxide 24 mmol/L (22-29); Chloride 105 mmol/L (96-108); Creatinine Clr Calc Pharmacy 87.9; Estimated Glomerular Filt Rate > 60; Ethanol < 10 mg/dL; Glucose Random 93 mg/dL (60-115); Potassium 3.6 mmol/L (3.3-5.1); Salicylate < 5.0 mg/dL (15-30); Sodium 137 mmol/L (135-145); Total Protein 6.6 g/dL (6.5-8.0)
--- NOTE | 2024-02-21 03:18 | PC.NURSE ---
Addendum entered by Rodolfo Adkins 02/21/24 03:37: pt reports she took ambien dose already at retirement tonight. med held at this time. Original Note: pt reports she needs something to sleep and is feeling anxious, states if i dont get something i'm going to kill myself by the morning. made aware. per pt med list prn ambien available for pt, made aware.
[2024-02-21 03:21] LABS: Appearance Urine Clear; Color Urine Yellow; Glucose Urine UA Negative (Negative); Leukocyte Esterase Urine Negative (Negative); Nitrite Urine Negative (Negative); PH 5.5 (5.0-9.0); Urine Blood Negative (Negative); Urine Ketones Negative (Negative); Urine Protein Negative (Neg-Trace)
[2024-02-21 03:21] LABS: Influenza A PCR NEGATIVE (Negative); Influenza B PCR NEGATIVE (Negative); Resp Syncy Virus RNA Qual PCR NEGATIVE (Negative); SARS COV2 PCR INHOUSE NEGATIVE (Negative)
[2024-02-21 03:22] LABS: UPreg QC Valid YES; Urine Pregnancy NEGATIVE (NEGATIVE)
[2024-02-21 03:30] LABS: Amphetamine Screen Urine Not Detected (Not Detect); Barbiturates, Urine Not Detected (Not Detect); Benzodiazepines Screen Urine Not Detected (Not Detect); Buprenorphine Scr Not Detected (Not Detect); Cannabinoid Screen Urine POSITIVE (Not Detect); Cocaine Screen Urine Not Detected (Not Detect); Fentanyl, urine Not Detected (Not Detect); Methadone Screen, Urine Not Detected (Not Detect); Opiate Screen Urine Not Detected (Not Detect); Oxycodone Screen Urine Not Detected (Not Detect); Phencyclidine Screen Urine Not Detected (Not Detect)
[2024-02-21] MEDS: LORazepam 2 MG/ML VIAL IM ×2 (03:44→22:57)
[2024-02-21] MEDS: OLANZapine 10 MG VIAL IM (03:44)
--- NOTE | 2024-02-21 03:47 | PC.NURSE ---
sitter found pt attempting to wrap mesh underwear around neck. MD and security to bedside. pt had conversation with MD about medications to help ease anxiety and pt agreeable to IM meds. orders in per MAR. pt not held down for meds. per MD meds are not restraints. pt now resting comfortably in stretcher. 1:1 sitter at bedside.
--- NOTE | 2024-02-21 05:06 | PC.NURSE ---
per lithium lab can be drawn in AM upon pt awakening.
--- NOTE | 2024-02-21 08:39 | MHC.CARE ---
Pt was seen by N in community and was sent on section 12 for inpatient level of care.
[2024-02-21] MEDS: Lithium Carbonate 300 MG CAPSULE PO ×2 (10:51→21:59)
[2024-02-21] MEDS: Loratadine 10 MG TABLET PO (10:51)
[2024-02-21 13:54] LABS: Lithium 0.67 mmol/L (0.60-1.20)
[2024-02-21] MEDS: cloNIDine HCL 0.1 MG TABLET PO (17:19)
--- NOTE | 2024-02-21 20:49 | PC.ADMIT ---
Pt arrived on the unit from [facility] on a 12b for SI.Pt has past hx of PTSD,unspecified adjustment disorder, anxiety disorder, BPD. Pt signed a CV on the unit with provider. Pt was 1:1 in the ED where she was found trying to tie a pair of mesh underwear around her head. Pt has had several [facility] admissions. Skin check done by Rafia Horne and female MHC, multiple [place] on arms and bruises noted on upper arms. Pt affect is flat and guarded. VS taken and patient shown to her room where she remains on 1:1 observation for safety.
[2024-02-21] MEDS: Zolpidem Tartrate 5 MG TABLET 10 MG PO (21:59)
[2024-02-21] MEDS: Prazosin HCL 5 MG CAPSULE 15 MG PO (21:59)
[2024-02-21] MEDS: Prazosin HCL 1 MG CAPSULE PO (21:59)
[2024-02-21] MEDS: traZODone HCL 100 MG TABLET 200 MG PO (21:59)
[2024-02-21] MEDS: Benztropine Mesylate 0.5 MG TABLET PO (21:59)
[2024-02-21] MEDS: diphenhydrAMINE HCL 25 MG CAPSULE 100 MG PO (22:00)
[2024-02-21] MEDS: OLANZapine 10 MG VIAL 5 MG IM (22:57)
--- NOTE | 2024-02-22 00:30 | PC.NURSE ---
SHE REPORTS AN UNKNOWN AMOUNT OF WEIGHT LOSS AND REPORTS NOT EATING FOR AT LEST 3-4 DAYS. SHE REPORTS AUDITORY COMMAND HALLUCINATIONS TELLING HER SHE IS GOING TO GET RAPED , IS NOT SAFE , AND IS GOING TO KILL HERSLEF TONIGHT . PT HAD TWO EPISODES OF LIGHTLY PUNCHING HER FOREHEAD TO MAKE THE VOICES STOP . PT APPEARS PREOCCUPIED AND FEARFUL. SHE WAS ABLE TO ASK FOR IM INJECTIONS TO HELP HER CALM DOWN. SHE REPORTS CONSTANT SI AND PLANS, STATING IM JUST FIGURING OUT EXACTLY HOW TO DO IT . PT IS MED COMPLIANT. SHE REPORTS POOR SLEEP DESPITE MEDICATIONS. PT HAS HAD 10/10 ANXIETY AND DEPRESSION DUE TO HER NEW CUSTODIAL STAFF. PT REPROTS INCREASED AH. SHE SAYS SHE HAS NOT HARMED HERSELF LATELY BUT IS ALWAYS THINKING ABOUT IT. PT HAS BEEN DOING OUTPATIENT ECT.
[2024-02-22 08:00] VITALS: BP 132/77; PULSE 93; RESP 16; TEMP 36.7; O2SAT 96
[2024-02-22 10:09] VITALS: BP 128/74
[2024-02-22] MEDS: Omeprazole 20 MG CAPSULE.DR PO (10:09)
[2024-02-22] MEDS: Lithium Carbonate 300 MG CAPSULE PO ×2 (10:09→20:39)
[2024-02-22] MEDS: cloNIDine HCL 0.1 MG TABLET PO ×3 (10:09→20:39)
[2024-02-22] MEDS: Benztropine Mesylate 0.5 MG TABLET PO ×2 (10:09→20:39)
[2024-02-22] MEDS: Loratadine 10 MG TABLET PO (10:09)
[2024-02-22] MEDS: DULoxetine HCl 60 MG CAPSULE.DR PO (10:09)
[2024-02-22 15:45] VITALS: BP 122/65
[2024-02-22] MEDS: HaloperidoL 5 MG TABLET PO ×2 (15:45→20:38)
--- NOTE | 2024-02-22 18:10 | PM.IMCN ---
History of Present Illness Data of Consult Service Date: 02/22/24 Primary Care Provider: Carroll Gaviria MD HPI Reason for consult: ECT clearance A 38 years old lady with PMH of COPD, PTSD, borderline dpersonality, depression among others who presented to ED with suicidal ideation and admitted to the psychiatry [facility] for treatment. No chest pain, palpitations, SOB, nausea, vomiting, diarrhea or urinary symptoms. Has elevated BMI w hx of COPD but no reported hypoxia, PNDs or orthopnea. She tolerated ECT before with no reported complications. Hospitalist team asked to evaluate the patient for ECT. Review of Systems Review of Systems: No fever, chills No chest pain, palpitation No shortness of breath or coughing No abdominal pain, nausea or vomiting No urinary symptoms PMFSH Medical History Port-A-Cath in place History of electroconvulsive therapy COVID-19 COVID-19 Sprain of left foot Chronic post-traumatic stress disorder (PTSD) COPD (chronic obstructive pulmonary disease) Increased BMI GERD (gastroesophageal reflux disease) Recurrent major depression-severe Acute post-traumatic stress disorder Injury, self-inflicted Suicidal ideation Self-harming behavior Intentional self-harm Suicidal ideation Borderline personality disorder Schizoaffective disorder Adjustment disorder Asthma Depression Anxiety PTSD (post-traumatic stress disorder) Family History Mother Brain cancer Other No family history of cardiac disease Social History Household Members: Other Household Members Other:: intermediate staff and peers [facility]: [facility] Do you presently have visiting nurse or other home services: No Unable to assess alcohol history related to: Unable to respond Alcohol intake: never Comment: 1:1 sitter Patient Tobacco Use Status: Former Tobacco user Tobacco use type: Cigarette Cigarette Packs Per Day: 0.5 Cigarettes Per Day: 4 Years Smoked: 20 Smoked in Last 30 Days: No e-Cigarette/Vaping Use: Never Used Patient Interested in Nicotine Replacement: No Patient Given Instructions on How to Stop Smoking: No Second Hand Smoke Exposure: No Use of substances other than those prescribed or required for medical reasons: Yes Substance Use Type: Marijuana Substance Use Frequency: Chronic Longstanding Last Used Substance: Unknown Currently Displaying Signs/Symptoms of Drug Intoxication Withdrawal: No Any prior treatment program specific to substance use: No Have you been hit, kicked, punched, or otherwise hurt by someone within the past year? If so, by whom?: No Do you feel safe in your current relationship?: No Current Relationship Is there a partner from a previous relationship who is making you feel unsafe now?: No Are you made to feel afraid or neglected: No Advance Directives: No Advance Directives Information Provided: No Do you have thoughts of harming others: None Do you have a plan to hurt others: No Plan Recently lost weight without trying: Yes How much weight loss: Unsure Eating poorly because of decreased appetite: Yes Nutrition screen score: 5 Nutrition Risks: Poor intake 0-25% >4 days Patient : No : No Poor oral hygiene: Yes service: No Sexual orientation: Straight/Heterosexual Meds Allergies Allergy/AdvReac Type Severity Reaction Status Date / Time carbamazepine [From TEGRETOL] AdvReac Mild Nausea and Verified 02/21/24 01:33 Vomiting topiramate [From Topamax] AdvReac Mild Nausea and Verified 02/21/24 01:33 Vomiting Active Medications: Current Medications Acetaminophen (Acetaminophen 325 Mg Tablet) 650 mg PO Q6H PRN PRN Reason: Headache/Pain Mild Scale (1-3) Al Hydroxide/Mg Hydroxide (Magnesium Hydrox/Alum Hydrox 30 Ml Oral.Susp) 30 ml PO Q6H PRN PRN Reason: Heartburn/Nausea Albuterol Sulfate (Albuterol Sulfate 90 Mcg 8 Gm Inhaler) 2 puff INHALE Q6H PRN PRN Reason: Wheezing Benztropine Mesylate (Benztropine Mesylate 0.5 Mg Tablet) 0.5 mg PO BID SULEIMAN Last Admin: 02/22/24 10:09 Dose: 0.5 mg Clonidine HCl (Clonidine Hcl 0.1 Mg Tablet) 0.1 mg PO TID SULEIMAN; Protocol Last Admin: 02/22/24 15:45 Dose: 0.1 mg Diphenhydramine HCl (Diphenhydramine Hcl 25 Mg Capsule) 100 mg PO BEDTIME SULEIMAN Last Admin: 02/21/24 22:00 Dose: 100 mg Duloxetine HCl (Duloxetine Hcl 60 Mg Capsule.Dr) 60 mg PO DAILY SULEIMAN Last Admin: 02/22/24 10:09 Dose: 60 mg Fluticasone Propionate (Fluticasone Propionate Nasal 16 Gm [place]) 2 spray NOSTRIL-B DAILY [facility] Last Admin: 02/22/24 10:10 Dose: Not Given Fluticasone/Vilanterol (Fluticasone/Vilanterol 200/25 Blst.W.Dev) 1 puff INHALE RDAILY [facility] Last Admin: 02/22/24 10:10 Dose: Not Given Haloperidol (Haloperidol 5 Mg Tablet) 5 mg PO TID PRN PRN Reason: Restlessness Last Admin: 02/22/24 15:45 Dose: 5 mg Hydroxyzine HCl (Hydroxyzine Hcl 25 Mg Tablet) 25 mg PO Q6H PRN PRN Reason: Anxiety [place] Carbonate ([place] Carbonate 300 Mg Capsule) 300 mg PO BID [facility] Last Admin: 02/22/24 10:09 Dose: 300 mg Loratadine (Loratadine 10 Mg Tablet) 10 mg PO DAILY [facility] Last Admin: 02/22/24 10:09 Dose: 10 mg Lorazepam (Lorazepam 1 Mg Tablet) 1 mg PO TID PRN PRN Reason: Anxiety Magnesium Hydroxide (Milk Of Magnesia 30 Ml Oral.Susp) 30 ml PO DAILY PRN PRN Reason: Constipation Nicotine (Nicotine 21 Mg Patch.Td24) 21 mg TRANSDERMA DAILY PRN PRN Reason: smoking cessation Nicotine Polacrilex (Nicotine Polacrilex 2 Mg Gum) 4 mg BUCCAL Q2H PRN PRN Reason: Nicotine Cravings Omeprazole (Omeprazole 20 Mg Capsule.Dr) 20 mg PO DAILY@0630 [facility] Last Admin: 02/22/24 10:09 Dose: 20 mg Prazosin HCl (Prazosin Hcl 5 Mg Capsule) 15 mg PO BEDTIME [facility]; Protocol Last Admin: 02/21/24 21:59 Dose: 15 mg Prazosin HCl (Prazosin Hcl 1 Mg Capsule) 1 mg PO BEDTIME [facility]; Protocol Last Admin: 02/21/24 21:59 Dose: 1 mg Trazodone HCl (Trazodone Hcl 100 Mg Tablet) 200 mg PO BEDTIME [facility] Last Admin: 02/21/24 21:59 Dose: 200 mg Trazodone HCl (Trazodone Hcl 50 Mg Tablet) 50 mg PO BEDTIME MRX1 PRN PRN Reason: Insomnia Zolpidem Tartrate (Zolpidem Tartrate 5 Mg Tablet) 10 mg PO BEDTIME SULEIMAN Last Admin: 02/21/24 21:59 Dose: 10 mg Home Medications ?Medication ?Instructions ?Recorded ?Confirmed ?Last Taken ?Type albuterol sulfate 90 mcg/actuation 2 puff inhalation Q6H PRN Wheezing 08/14/22 02/21/24 03/13/23 History aerosol inhaler (ProAir HFA) diphenhydramine HCl 50 mg capsule 2 cap PO BEDTIME 08/14/22 02/21/24 02/15/24 20:00 History (Banophen) haloperidol 5 mg tablet 1 tab PO TID PRN Agitation 08/14/22 02/21/24 03/13/23 History omeprazole 20 mg tablet,delayed 20 mg PO DAILY@0630 08/14/22 02/21/24 02/15/24 06:30 History release zolpidem 10 mg tablet 1 tab PO BEDTIME 08/14/22 02/21/24 02/15/24 20:00 History fluticasone propionate 230 2 puff inhalation BID 10/07/22 02/21/24 02/15/24 20:00 History mcg-salmeterol 21 mcg/actuation HFA inhaler (Advair HFA) benztropine 0.5 mg tablet 1 tab PO BID 10/26/22 02/21/24 02/15/24 17:00 History clonidine HCl 0.1 mg tablet 1 tab PO TID 10/26/22 02/21/24 02/15/24 20:00 History duloxetine 60 mg capsule,delayed 1 cap PO DAILY 10/26/22 02/21/24 02/15/24 07:00 History release haloperidol decanoate 100 mg/mL 75 mg IM Q4W 10/26/22 02/21/24 08/25/23 History intramuscular solution lithium carbonate 300 mg tablet 300 mg PO BID 10/26/22 02/21/24 02/15/24 20:00 History lorazepam 1 mg tablet 1 mg PO TID PRN Anxiety 03/25/23 02/21/24 Unknown History fluticasone propionate 50 2 spray intranasal DAILY 06/17/23 02/21/24 02/15/24 08:00 History mcg/actuation nasal spray,suspension prazosin 1 mg capsule 1 mg PO BEDTIME 06/17/23 02/21/2402/14/24 20:00 History trazodone 100 mg tablet 200 mg PO BEDTIME 06/17/23 02/21/24 02/15/24 20:00 History cetirizine 10 mg tablet 10 mg PO DAILY 02/16/24 02/21/24 02/15/24 08:00 History prazosin 5 mg capsule 15 mg PO BEDTIME 02/16/24 02/21/24 02/15/24 20:00 History Physical Exam Vital Signs and Narrative: Vital Signs: Last Vital Signs Temp 98.1 F 02/22/24 08:00 Pulse 93 02/22/24 08:00 Resp 16 02/22/24 08:00 BP 122/65 02/22/24 15:45 Pulse Ox 96 02/22/24 08:00 O2 Del Method Room Air 02/22/24 08:00 BMI result Body Mass Index 40.4 Const: Other: Constitutional : Awake, interactive, obese, not in distress Neck : Normal inspection, Supple Cardiovascular : RRR, no JVP Respiratory : good bilateral air entry, no crackles Gastrointestinal: soft, lax, Non tender Skin : Warm, Dry Neurological : Alert & oriented x3, No focal deficit , CN 2-12 within normal Results Labs 02/21/24 02:34 02/21/24 02:34 Assessment and Plan (1) Suicidal ideation: Status: Acute Plan A 73 years old male with PMH of asthma, Bladder CA, 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 Depression with SI Needs ECT per psychiatry team Labs reviewed. check TSH The patient has no contraindications for the procedure, she carries mild risk of post-procedure complications can go ahead with no extra testing needed Thank you for the consult. will continue to monitor with you as needed.
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
[2024-02-22 20:00] VITALS: BP 127/72; PULSE 88; RESP 14; TEMP 37.1; O2SAT 96
[2024-02-22] MEDS: Prazosin HCL 5 MG CAPSULE 15 MG PO (20:38)
[2024-02-22] MEDS: diphenhydrAMINE HCL 25 MG CAPSULE 100 MG PO (20:38)
[2024-02-22] MEDS: hydrOXYzine HCL 25 MG TABLET PO (20:39)
[2024-02-22] MEDS: traZODone HCL 100 MG TABLET 200 MG PO (20:39)
[2024-02-22] MEDS: Zolpidem Tartrate 5 MG TABLET 10 MG PO (20:39)
[2024-02-22] MEDS: traZODone HCL 50 MG TABLET PO (20:39)
[2024-02-22] MEDS: LORazepam 1 MG TABLET PO (20:39)
[2024-02-22] MEDS: Prazosin HCL 1 MG CAPSULE PO (20:39)
[2024-02-22] MEDS: OLANZapine 10 MG TABLET PO (22:37)
[2024-02-23 00:08] LABS: TSH reflex Free T4 5.83 uIU/mL (0.32-4.0)
[2024-02-23] MEDS: traZODone HCL 50 MG TABLET PO (00:17)
[2024-02-23 00:47] LABS: Free T4 (Free Thyroxine) 1.05 ng/dL (0.71-1.85)
[2024-02-23 08:00] VITALS: BP 123/83; PULSE 77; RESP 18; TEMP 36.4; O2SAT 97
[2024-02-23] MEDS: Omeprazole 20 MG CAPSULE.DR PO (08:42)
[2024-02-23] MEDS: Benztropine Mesylate 0.5 MG TABLET PO ×2 (08:42→20:21)
[2024-02-23] MEDS: Lithium Carbonate 300 MG CAPSULE PO ×2 (08:42→20:21)
[2024-02-23] MEDS: cloNIDine HCL 0.1 MG TABLET PO ×3 (08:42→20:21)
[2024-02-23] MEDS: HaloperidoL 5 MG TABLET PO ×2 (08:48→16:03)
[2024-02-23] MEDS: DULoxetine HCl 60 MG CAPSULE.DR PO (08:48)
[2024-02-23] MEDS: LORazepam 1 MG TABLET PO ×2 (08:48→16:04)
[2024-02-23] MEDS: Loratadine 10 MG TABLET PO (08:50)
[2024-02-23] MEDS: hydrOXYzine HCL 25 MG TABLET PO (19:51)
[2024-02-23 20:00] VITALS: BP 104/67; PULSE 99; TEMP 36.6; O2SAT 96
[2024-02-23 20:19] VITALS: BP 104/67
[2024-02-23] MEDS: diphenhydrAMINE HCL 25 MG CAPSULE 100 MG PO (20:19)
[2024-02-23] MEDS: Prazosin HCL 5 MG CAPSULE 15 MG PO (20:19)
[2024-02-23 20:21] VITALS: BP 104/67
[2024-02-23] MEDS: Zolpidem Tartrate 5 MG TABLET 10 MG PO (20:21)
[2024-02-23] MEDS: traZODone HCL 100 MG TABLET 200 MG PO (20:21)
[2024-02-23 20:22] VITALS: BP 104/67
[2024-02-23] MEDS: Prazosin HCL 1 MG CAPSULE PO (20:22)
--- NOTE | 2024-02-23 23:50 | HO.PSYEVENT2 ---
Documented by User: Maryam Bardales APRN 02/23/24 23:52 Event Note Date of Service: 02/23/24 Psych On-Call Event Note: Pt requesting IM Olanzapine/Lorazepam to assist with safety mgt. Reports strong urges to self harm and asks for medication assistance in IM form. Olanzapine 10 mg/Lorazepam 1 mg IM ordered. Time Spent With Patient Time: Total time managing care of this patient today ____ minutes. Documented by User: Abdoul Silva MD 02/25/24 07:26 Event Note Date of Service: 02/25/24
--- NOTE | 2024-02-23 23:52 | P.PNPSI_ITS ---
Subjective Subjective Date of Service: 02/23/24 Reason For Visit: Dpression/SI Interim History: met with pt; discussed with team; discussed with dr. Silva pt says she's having a hard time and has AH; lots of negative thoughts to self- harm; she says she's been able to keep herself from it; one time made comment i'm going to kill myself but calmed down. Says roommate provoking her (to which principal technical writer agrees) and pt felt better having moved rooms. Says she's afraid if off 1:1 will self harm. Asks for ECT principal technical writer discussed ECT with Dr. iSlva who agrees; scheduled for wednesday Mental Status Exam Mental Status Exam Narrative: Pt is alert and oriented; behavior is lying in bed, cooperative, calm; dressed in casual gown with unkempt hair; marginal hygiene; numerous of scars up and down bilateral forearms from hx of superficial cutting; mood is described as not good and affect congruent, downcast, distant; eye contact avoidant; Speech is slowed, quiet; normal prosody; psychomotor retardation present; thought process is goal directed; Thought content is on dealing with self-deprecating thoughts; on frustrations on unit; assisted and urges to self-harm; otherwise pertinent to relevant topics and without any delusional content, paranoid ideations or grandiosity; denies SI; denies HI. +AH Patients insight and judgment are impaired. Diagnostics Vital Signs (24Hr): Vital Signs - 24 hr 02/23/24 08:00 02/23/24 20:19 02/23/24 20:21 Temperature 97.6 F Pulse Rate 77 Respiratory Rate 18 Blood Pressure 123/83 104/67 104/67 Pulse Oximetry 97 Oxygen Delivery Method Room Air 02/23/24 20:22 Temperature Pulse Rate Respiratory Rate Blood Pressure 104/67 Pulse Oximetry Oxygen Delivery Method BMI result Body Mass Index 40.4 Labs 02/21/24 02:34 02/21/24 02:34 Labs: Laboratory Results - last 48 hr 02/21/24 02:34 TSH 5.83 H Free T4 1.05 Medications Medications Current Medications Acetaminophen (Acetaminophen 325 Mg Tablet) 650 mg PO Q6H PRN PRN Reason: Headache/Pain Mild Scale (1-3) Al Hydroxide/Mg Hydroxide (Magnesium Hydrox/Alum Hydrox 30 Ml Oral.Susp) 30 ml PO Q6H PRN PRN Reason: Heartburn/Nausea Albuterol Sulfate (Albuterol Sulfate 90 Mcg 8 Gm Inhaler) 2 puff INHALE Q6H PRN PRN Reason: Wheezing Benztropine Mesylate (Benztropine Mesylate 0.5 Mg Tablet) 0.5 mg PO BID [facility] Last Admin: 02/23/24 20:21 Dose: 0.5 mg Clonidine HCl (Clonidine Hcl 0.1 Mg Tablet) 0.1 mg PO TID [facility]; Protocol Last Admin: 02/23/24 20:21 Dose: 0.1 mg Diphenhydramine HCl (Diphenhydramine Hcl 25 Mg Capsule) 100 mg PO BEDTIME [facility] Last Admin: 02/23/24 20:19 Dose: 100 mg Duloxetine HCl (Duloxetine Hcl 60 Mg Capsule.Dr) 60 mg PO DAILY [facility] Last Admin: 02/23/24 08:48 Dose: 60 mg Fluticasone Propionate (Fluticasone Propionate Nasal 16 Gm [place] Pool) 2 spray NOSTRIL-B DAILY [facility] Last Admin: 02/23/24 09:06 Dose: Not Given Fluticasone/Vilanterol (Fluticasone/Vilanterol 200/25 Blst.W.Dev) 1 puff INHALE RDAILY [facility] Last Admin: 02/23/24 09:06 Dose: Not Given Haloperidol (Haloperidol 5 Mg Tablet) 5 mg PO TID PRN PRN Reason: Restlessness Last Admin: 02/23/24 16:03 Dose: 5 mg Hydroxyzine HCl (Hydroxyzine Hcl 25 Mg Tablet) 25 mg PO Q6H PRN PRN Reason: Anxiety Last Admin: 02/23/24 19:51 Dose: 25 mg [place] Carbonate (Gu-Win Carbonate 300 Mg Capsule) 300 mg PO BID [facility] Last Admin: 02/23/24 20:21 Dose: 300 mg Loratadine (Loratadine 10 Mg Tablet) 10 mg PO DAILY [facility] Last Admin: 02/23/24 08:50 Dose: 10 mg Lorazepam (Lorazepam 1 Mg Tablet) 1 mg PO TID PRN PRN Reason: Anxiety Last Admin: 02/23/24 16:04 Dose: 1 mg Lorazepam (Lorazepam 2 Mg/Ml Vial) 1 mg IM ONCE ONE Stop: 02/23/24 23:50 Magnesium Hydroxide (Milk Of Magnesia 30 Ml Oral.Susp) 30 ml PO DAILY PRN PRN Reason: Constipation Nicotine (Nicotine 21 Mg Patch.Td24) 21 mg TRANSDERMA DAILY PRN PRN Reason: smoking cessation Nicotine Polacrilex (Nicotine Polacrilex 2 Mg Gum) 4 mg BUCCAL Q2H PRN PRN Reason: Nicotine Cravings Olanzapine (Olanzapine 10 Mg Vial) 10 mg IM ONCE ONE Stop: 02/23/24 23:49 Omeprazole (Omeprazole 20 Mg Capsule.Dr) 20 mg PO DAILY@0630 [facility] Last Admin: 02/23/24 08:42 Dose: 20 mg Prazosin HCl (Prazosin Hcl 5 Mg Capsule) 15 mg PO BEDTIME [facility]; Protocol Last Admin: 02/23/24 20:19 Dose: 15 mg Prazosin HCl (Prazosin Hcl 1 Mg Capsule) 1 mg PO BEDTIME [facility]; Protocol Last Admin: 02/23/24 20:22 Dose: 1 mg Trazodone HCl (Trazodone Hcl 100 Mg Tablet) 200 mg PO BEDTIME [facility] Last Admin: 02/23/24 20:21 Dose: 200 mg Trazodone HCl (Trazodone Hcl 50 Mg Tablet) 50 mg PO BEDTIME MRX1 PRN PRN Reason: Insomnia Last Admin: 02/23/24 00:17 Dose: 50 mg Zolpidem Tartrate (Zolpidem Tartrate 5 Mg Tablet) 10 mg PO BEDTIME [facility] Last Admin: 02/23/24 20:21 Dose: 10 mg Allergies Allergies Allergy/AdvReac Type Severity Reaction Status Date / Time carbamazepine [From TEGRETOL] AdvReac Mild Nausea and Verified 02/21/24 01:33 Vomiting topiramate [From Topamax] AdvReac Mild Nausea and Verified 02/21/24 01:33 Vomiting Assessment & Plan Assessment & Plan (1) Chronic post-traumatic stress disorder (PTSD): Status: Chronic Code(s): F43.12 - Post-traumatic stress disorder, chronic (2) Borderline personality disorder: Status: Chronic Code(s): F60.3 - Borderline personality disorder Plan Pt is a 38 y.o. female, with? PTSD with extensive trauma history, and BPD, (carries a dx of schizoaffective DO, depressive type),chronic SI, chronic self- harming urges/ behaviors and multiple inpatient admissions who presents for increased urges to self-harm following relational strife at assisted. Patient reports it has been about 5 months since she was last psychiatrically admitted. She says she was overall doing well and has not had much urges to harm, having restrained herself over the past month. Patient said she was at the assisted and overheard the staff making comments about her; she said they make me feel like I do not belong. Patient said she got into an argument with a specific staff member though she does not really remember over what exactly. However this emotional interaction triggered thoughts to self-harm and patient very much wanted to do so. She called crisis who talked her out of going to the emergency room; the next day her self harming urges remained and she called crisis again and self presented. Patient denies any actual suicidality, just thoughts to cut herself. In the emergency room, patient tied a bed sheet around her neck. She said she was not really trying to hurt herself, she was just angry, frustrated and so just needed some how to express it. Patient reports continuing urges to self-harm though she says she is able to remain safe. She asks she can get ECT this Wednesday, saying she was scheduled for it as an outpatient. Patient denies recent bouts of depression. Formulation; clinical reasoning: Patient presents with similar presentation to past admissions. Says she is already starting to feel overall better and that she will be able to return to the assisted. Unit acuity is triggering for her. Patient says she should likely remain on one-to-one because off of it she gets trigger to self-harm and worries she will punch herself in the face; she reminds principal technical writer that she is typically on one-to-one throughout her admissions Hospital course: 02/22 pt says she's having a hard time and has AH; lots of negative thoughts to self-harm; she says she's been able to keep herself from it; one time made comment i'm going to kill myself but calmed down. Says roommate provoking her (to which principal technical writer agrees) and pt felt better having moved rooms. Says she's afraid if off 1:1 will self harm. Asks for ECT -principal technical writer discussed ECT with Dr. Silva who agrees; scheduled for wednesday -discussed coping skills; discussed anxiety, medication; agrees to try increased Hydroxyzine in effort to avoid more antipsychotic Plan: CV One-to-one Continue home medications ECT for this Wednesday; NPO after midnight Patient educated on: diagnosis, medication risk/benefits, ECT and therapeutic strategies Informed Consent: understands Reason for continued inpatient stay Substantial Risk for: harm to self and rapid decompensation Time Spent With Patient Time: Total time managing care of this patient today ____ minutes.
[2024-02-24] MEDS: OLANZapine 10 MG VIAL IM (00:27)
[2024-02-24] MEDS: LORazepam 2 MG/ML VIAL 1 MG IM (00:27)
[2024-02-24] MEDS: LORazepam 1 MG TABLET PO ×2 (06:27→15:20)
[2024-02-24] MEDS: Omeprazole 20 MG CAPSULE.DR PO (06:28)
[2024-02-24 07:00] VITALS: BMI 40.1
--- NOTE | 2024-02-24 12:22 | PC.NURSE ---
pt would not wake for morning scheduled medications. Respirations are even and unlabored. Will attempt to rewake at lunch
--- NOTE | 2024-02-24 13:49 | PC.NURSE ---
attempted to wake pt on two separate occasions between 12-2pm to encourage meal consumption and to provide scheduled morning medication w/ no effect. pt continues to sleep heavily ,respirations even and unlabored.
[2024-02-24 14:40] VITALS: BP 109/78; PULSE 78; RESP 16; TEMP 36.8; O2SAT 98
[2024-02-24] MEDS: DULoxetine HCl 60 MG CAPSULE.DR PO (14:45)
[2024-02-24] MEDS: cloNIDine HCL 0.1 MG TABLET PO ×2 (14:45→20:56)
[2024-02-24] MEDS: Loratadine 10 MG TABLET PO (14:45)
[2024-02-24] MEDS: Benztropine Mesylate 0.5 MG TABLET PO ×2 (14:45→20:56)
[2024-02-24] MEDS: HaloperidoL 5 MG TABLET PO ×2 (15:25→20:57)
[2024-02-24 20:00] VITALS: BP 115/75; PULSE 84; RESP 16; O2SAT 96
[2024-02-24 20:55] VITALS: BP 115/75
[2024-02-24] MEDS: traZODone HCL 100 MG TABLET 200 MG PO (20:55)
[2024-02-24] MEDS: Prazosin HCL 1 MG CAPSULE PO (20:55)
[2024-02-24 20:56] VITALS: BP 115/75
[2024-02-24] MEDS: Prazosin HCL 5 MG CAPSULE 15 MG PO (20:56)
[2024-02-24] MEDS: diphenhydrAMINE HCL 25 MG CAPSULE 100 MG PO (20:56)
[2024-02-24] MEDS: Milk of Magnesia 30 ML ORAL.SUSP PO (21:40)
[2024-02-24] MEDS: traZODone HCL 50 MG TABLET PO (23:07)
[2024-02-24] MEDS: Zolpidem Tartrate 5 MG TABLET 10 MG PO (23:07)
[2024-02-25] VITALS (7 sets, daily range): BP systolic 110–130; BP diastolic 70–95; PULSE 91–106; RESP 16–18; TEMP 36.4–37.1; O2SAT 96–98
--- NOTE | 2024-02-25 00:05 | P.PNPSI_ITS ---
Subjective Subjective Date of Service: 02/24/24 Reason For Visit: Dpression/SI Interim History: note for pt seen on 02/23; discussed with team remains depressed, isolating, intense urges to self harm but resisting; discussed ECT and she's hoping it will help lift up her mind. Mental Status Exam Mental Status Exam Narrative: Pt is alert and oriented; behavior is lying in bed, cooperative, calm; dressed in casual gown with unkempt hair; marginal hygiene; numerous of scars up and down bilateral forearms from hx of superficial cutting; mood is described as not good and affect congruent, downcast, distant; eye contact avoidant; Speech is slowed, quiet; normal prosody; psychomotor retardation present; thought process is goal directed; Thought content is on dealing with self-deprecating thoughts; on frustrations on unit; skilled nursing and urges to self-harm; otherwise pertinent to relevant topics and without any delusional content, paranoid ideations or grandiosity; denies SI; denies HI. +AH Patients insight and judgment are impaired. Diagnostics Vital Signs (24Hr): Vital Signs - 24 hr 02/24/24 14:40 02/24/24 20:55 02/24/24 20:56 Temperature 98.3 F Pulse Rate 78 Respiratory Rate 16 Blood Pressure 109/78 115/75 115/75 Pulse Oximetry 98 Oxygen Delivery Method Room Air 02/24/24 20:56 Temperature Pulse Rate Respiratory Rate Blood Pressure 115/75 Pulse Oximetry Oxygen Delivery Method BMI result Body Mass Index 40.1 Labs 02/21/24 02:34 02/21/24 02:34 Labs: Laboratory Results - last 48 hr 02/21/24 02:34 TSH 5.83 H Free T4 1.05 Medications Medications Current Medications Acetaminophen (Acetaminophen 325 Mg Tablet) 650 mg PO Q6H PRN PRN Reason: Headache/Pain Mild Scale (1-3) Al Hydroxide/Mg Hydroxide (Magnesium Hydrox/Alum Hydrox 30 Ml Oral.Susp) 30 ml PO Q6H PRN PRN Reason: Heartburn/Nausea Albuterol Sulfate (Albuterol Sulfate 90 Mcg 8 Gm Inhaler) 2 puff INHALE Q6H PRN PRN Reason: Wheezing Benztropine Mesylate (Benztropine Mesylate 0.5 Mg Tablet) 0.5 mg PO BID [facility] Last Admin: 02/24/24 20:56 Dose: 0.5 mg Clonidine HCl (Clonidine Hcl 0.1 Mg Tablet) 0.1 mg PO TID [facility]; Protocol Last Admin: 02/24/24 20:56 Dose: 0.1 mg Diphenhydramine HCl (Diphenhydramine Hcl 25 Mg Capsule) 100 mg PO BEDTIME [facility] Last Admin: 02/24/24 20:56 Dose: 100 mg Duloxetine HCl (Duloxetine Hcl 60 Mg Capsule.Dr) 60 mg PO DAILY [facility] Last Admin: 02/24/24 14:45 Dose: 60 mg Fluticasone Propionate (Fluticasone Propionate Nasal 16 Gm [place]) 2 spray NOSTRIL-B DAILY [facility] Last Admin: 02/24/24 16:17 Dose: Not Given Fluticasone/Vilanterol (Fluticasone/Vilanterol 200/25 Blst.W.Dev) 1 puff INHALE RDAILY [facility] Last Admin: 02/24/24 16:17 Dose: Not Given Haloperidol (Haloperidol 5 Mg Tablet) 5 mg PO TID PRN PRN Reason: Restlessness Last Admin: 02/24/24 20:57 Dose: 5 mg Hydroxyzine HCl (Hydroxyzine Hcl 25 Mg Tablet) 25 mg PO Q6H PRN PRN Reason: Anxiety Last Admin: 02/23/24 19:51 Dose: 25 mg [place] Carbonate ([place] Carbonate 300 Mg Capsule) 300 mg PO BID [facility] Last Admin: 02/24/24 15:27 Dose: Not Given Loratadine (Loratadine 10 Mg Tablet) 10 mg PO DAILY [facility] Last Admin: 02/24/24 14:45 Dose: 10 mg Lorazepam (Lorazepam 1 Mg Tablet) 1 mg PO TID PRN PRN Reason: Anxiety Last Admin: 02/24/24 15:20 Dose: 1 mg Magnesium Hydroxide (Milk Of Magnesia 30 Ml Oral.Susp) 30 ml PO DAILY PRN PRN Reason: Constipation Last Admin: 02/24/24 21:40 Dose: 30 ml Nicotine (Nicotine 21 Mg Patch.Td24) 21 mg TRANSDERMA DAILY PRN PRN Reason: smoking cessation Nicotine Polacrilex (Nicotine Polacrilex 2 Mg Gum) 4 mg BUCCAL Q2H PRN PRN Reason: Nicotine Cravings Omeprazole (Omeprazole 20 Mg Capsule.Dr) 20 mg PO DAILY@0630 [facility] Last Admin: 02/24/24 06:28 Dose: 20 mg Prazosin HCl (Prazosin Hcl 5 Mg Capsule) 15 mg PO BEDTIME [facility]; Protocol Last Admin: 02/24/24 20:56 Dose: 15 mg Prazosin HCl (Prazosin Hcl 1 Mg Capsule) 1 mg PO BEDTIME [facility]; Protocol Last Admin: 02/24/24 20:55 Dose: 1 mg Trazodone HCl (Trazodone Hcl 100 Mg Tablet) 200 mg PO BEDTIME [facility] Last Admin: 02/24/24 20:55 Dose: 200 mg Trazodone HCl (Trazodone Hcl 50 Mg Tablet) 50 mg PO BEDTIME MRX1 PRN PRN Reason: Insomnia Last Admin: 02/24/24 23:07 Dose: 50 mg Zolpidem Tartrate (Zolpidem Tartrate 5 Mg Tablet) 10 mg PO BEDTIME [facility] Last Admin: 02/24/24 23:07 Dose: 10 mg Allergies Allergies Allergy/AdvReac Type Severity Reaction Status Date / Time carbamazepine [From TEGRETOL] AdvReac Mild Nausea and Verified 02/21/24 01:33 Vomiting topiramate [From Topamax] AdvReac Mild Nausea and Verified 02/21/24 01:33 Vomiting Assessment & Plan Assessment & Plan (1) Chronic post-traumatic stress disorder (PTSD): Status: Chronic Code(s): F43.12 - Post-traumatic stress disorder, chronic (2) Borderline personality disorder: Status: Chronic Code(s): F60.3 - Borderline personality disorder Plan Pt is a 38 y.o. female, with? PTSD with extensive trauma history, and BPD, (carries a dx of schizoaffective DO, depressive type),chronic SI, chronic self- harming urges/ behaviors and multiple inpatient admissions who presents for increased urges to self-harm following relational strife at skilled nursing. Patient reports it has been about 5 months since she was last psychiatrically admitted. She says she was overall doing well and has not had much urges to harm, having restrained herself over the past month. Patient said she was at the skilled nursing and overheard the staff making comments about her; she said they make me feel like I do not belong. Patient said she got into an argument with a specific staff member though she does not really remember over what exactly. However this emotional interaction triggered thoughts to self-harm and patient very much wanted to do so. She called crisis who talked her out of going to the emergency room; the next day her self harming urges remained and she called crisis again and self presented. Patient denies any actual suicidality, just thoughts to cut herself. In the emergency room, patient tied a bed sheet around her neck. She said she was not really trying to hurt herself, she was just angry, frustrated and so just needed some how to express it. Patient reports continuing urges to self-harm though she says she is able to remain safe. She asks she can get ECT this Wednesday, saying she was scheduled for it as an outpatient. Patient denies recent bouts of depression. Formulation; clinical reasoning: Patient presents with similar presentation to past admissions. Says she is already starting to feel overall better and that she will be able to return to the skilled nursing. Unit acuity is triggering for her. Patient says she should likely remain on one-to-one because off of it she gets trigger to self-harm and worries she will punch herself in the face; she reminds program writer that she is typically on one-to-one throughout her admissions Hospital course: 02/22 pt says she's having a hard time and has AH; lots of negative thoughts to self-harm; she says she's been able to keep herself from it; one time made comment i'm going to kill myself but calmed down. Says roommate provoking her (to which program writer agrees) and pt felt better having moved rooms. Says she's afraid if off 1:1 will self harm. Asks for ECT -program writer discussed ECT with Dr. Silva who agrees; scheduled for wednesday -discussed coping skills; discussed anxiety, medication; agrees to try increased Hydroxyzine in effort to avoid more antipsychotic 02/23 depressed, self harm urges and needs 1:1 -will hold [place] today since ECT tomorrow Plan: CV One-to-one Continue home medications ECT for this Wednesday; NPO after midnight Patient educated on: diagnosis, medication risk/benefits and ECT Informed Consent: understands Reason for continued inpatient stay Substantial Risk for: harm to self and rapid decompensation Time Spent With Patient Time: Total time managing care of this patient today ____ minutes.
[2024-02-25] MEDS: hydrOXYzine HCL 25 MG TABLET PO (01:44)
--- NOTE | 2024-02-25 06:42 | P.CONAN_ITS ---
[facility] Active Problems Active Problems: All Active Problems Suicidal ideation (Acute) Port-A-Cath in place (Acute) Intentional self-harm (Acute) COPD (chronic obstructive pulmonary disease) (Acute) Asthma (Acute) Adjustment disorder (Acute) Anxiety (Acute) Injury of ligament of right knee (Acute) Sprain of anterior cruciate ligament of right knee (Acute) Hernia (Chronic) Schizoaffective disorder, depressive type (Chronic) Chronic post-traumatic stress disorder (PTSD) (Chronic) Increased BMI (Acute) GERD (gastroesophageal reflux disease) (Acute) Borderline personality disorder (Chronic) Past Medical History Medical History Port-A-Cath in place History of electroconvulsive therapy COVID-19 COVID-19 Sprain of left foot Chronic post-traumatic stress disorder (PTSD) COPD (chronic obstructive pulmonary disease) Increased BMI GERD (gastroesophageal reflux disease) Recurrent major depression-severe Acute post-traumatic stress disorder Injury, self-inflicted Suicidal ideation Self-harming behavior Intentional self-harm Suicidal ideation Borderline personality disorder Schizoaffective disorder Adjustment disorder Asthma Depression Anxiety PTSD (post-traumatic stress disorder) Family History Family History Mother Brain cancer Other No family history of cardiac disease Family history of problems with anesthesia: No Surgical History History of Problems with Anesthesia: No Social History Social History Household Members: Other Household Members Other:: [facility] staff and peers Housing: Other Housing Other:: [facility] Do you presently have visiting nurse or other home services: No Unable to assess alcohol history related to: Unable to respond Alcohol intake: never Comment: 1:1 sitter Patient Tobacco Use Status: Former Tobacco user Tobacco use type: Cigarette Cigarette Packs Per Day: 0.5 Cigarettes Per Day: 4 Years Smoked: 20 Smoked in Last 30 Days: No e-Cigarette/Vaping Use: Never Used Patient Interested in Nicotine Replacement: No Patient Given Instructions on How to Stop Smoking: No Second Hand Smoke Exposure: No Use of substances other than those prescribed or required for medical reasons: Yes Substance Use Type: Marijuana Substance Use Frequency: Chronic Longstanding Last Used Substance: Unknown Currently Displaying Signs/Symptoms of Drug Intoxication Withdrawal: No Any prior treatment program specific to substance use: No Have you been hit, kicked, punched, or otherwise hurt by someone within the past year? If so, by whom?: No Do you feel safe in your current relationship?: No Current Relationship Is there a partner from a previous relationship who is making you feel unsafe now?: No Are you made to feel afraid or neglected: No Advance Directives: No Advance Directives Information Provided: No Do you have thoughts of harming others: None Do you have a plan to hurt others: No Plan Recently lost weight without trying: Yes How much weight loss: Unsure Eating poorly because of decreased appetite: Yes Nutrition screen score: 5 Nutrition Risks: Poor intake 0-25% >4 days Patient : No : No Poor oral hygiene: Yes service: No Sexual orientation: Straight/Heterosexual Meds Allergies Allergy/AdvReac Type Severity Reaction Status Date / Time carbamazepine [From TEGRETOL] AdvReac Mild Nausea and Verified 02/21/24 01:33 Vomiting topiramate [From Topamax] AdvReac Mild Nausea and Verified 02/21/24 01:33 Vomiting Active Medications: Current Medications Acetaminophen (Acetaminophen 325 Mg Tablet) 650 mg PO Q6H PRN PRN Reason: Headache/Pain Mild Scale (1-3) Al Hydroxide/Mg Hydroxide (Magnesium Hydrox/Alum Hydrox 30 Ml Oral.Susp) 30 ml PO Q6H PRN PRN Reason: Heartburn/Nausea Albuterol Sulfate (Albuterol Sulfate 90 Mcg 8 Gm Inhaler) 2 puff INHALE Q6H PRN PRN Reason: Wheezing Benztropine Mesylate (Benztropine Mesylate 0.5 Mg Tablet) 0.5 mg PO BID [facility] Last Admin: 02/24/24 20:56 Dose: 0.5 mg Clonidine HCl (Clonidine Hcl 0.1 Mg Tablet) 0.1 mg PO TID [facility]; Protocol Last Admin: 02/24/24 20:56 Dose: 0.1 mg Diphenhydramine HCl (Diphenhydramine Hcl 25 Mg Capsule) 100 mg PO BEDTIME [facility] Last Admin: 02/24/24 20:56 Dose: 100 mg Duloxetine HCl (Duloxetine Hcl 60 Mg Capsule.Dr) 60 mg PO DAILY [facility] Last Admin: 02/24/24 14:45 Dose: 60 mg Fluticasone Propionate (Fluticasone Propionate Nasal 16 Gm [place]) 2 spray NOSTRIL-B DAILY [facility] Last Admin: 02/24/24 16:17 Dose: Not Given Fluticasone/Vilanterol (Fluticasone/Vilanterol 200/25 Blst.W.Dev) 1 puff INHALE RDAILY [facility] Last Admin: 02/24/24 16:17 Dose: Not Given Haloperidol (Haloperidol 5 Mg Tablet) 5 mg PO TID PRN PRN Reason: Restlessness Last Admin: 02/24/24 20:57 Dose: 5 mg Hydroxyzine HCl (Hydroxyzine Hcl 25 Mg Tablet) 25 mg PO Q6H PRN PRN Reason: Anxiety Last Admin: 02/25/24 01:44 Dose: 25 mg [place] Carbonate ([place] Carbonate 300 Mg Capsule) 300 mg PO BID [facility] Last Admin: 02/24/24 15:27 Dose: Not Given Loratadine (Loratadine 10 Mg Tablet) 10 mg PO DAILY [facility] Last Admin: 02/24/24 14:45 Dose: 10 mg Lorazepam (Lorazepam 1 Mg Tablet) 1 mg PO TID PRN PRN Reason: Anxiety Last Admin: 02/24/24 15:20 Dose: 1 mg Magnesium Hydroxide (Milk Of Magnesia 30 Ml Oral.Susp) 30 ml PO DAILY PRN PRN Reason: Constipation Last Admin: 02/24/24 21:40 Dose: 30 ml Nicotine (Nicotine 21 Mg Patch.Td24) 21 mg TRANSDERMA DAILY PRN PRN Reason: smoking cessation Nicotine Polacrilex (Nicotine Polacrilex 2 Mg Gum) 4 mg BUCCAL Q2H PRN PRN Reason: Nicotine Cravings Omeprazole (Omeprazole 20 Mg Capsule.Dr) 20 mg PO DAILY@0630 [facility] Last Admin: 02/24/24 06:28 Dose: 20 mg Prazosin HCl (Prazosin Hcl 5 Mg Capsule) 15 mg PO BEDTIME [facility]; Protocol Last Admin: 02/24/24 20:56 Dose: 15 mg Prazosin HCl (Prazosin Hcl 1 Mg Capsule) 1 mg PO BEDTIME [facility]; Protocol Last Admin: 02/24/24 20:55 Dose: 1 mg Trazodone HCl (Trazodone Hcl 100 Mg Tablet) 200 mg PO BEDTIME [facility] Last Admin: 02/24/24 20:55 Dose: 200 mg Trazodone HCl (Trazodone Hcl 50 Mg Tablet) 50 mg PO BEDTIME MRX1 PRN PRN Reason: Insomnia Last Admin: 02/24/24 23:07 Dose: 50 mg Zolpidem Tartrate (Zolpidem Tartrate 5 Mg Tablet) 10 mg PO BEDTIME [facility] Last Admin: 02/24/24 23:07 Dose: 10 mg Home Medications ?Medication ?Instructions ?Recorded ?Confirmed ?Last Taken ?Type albuterol sulfate 90 mcg/actuation 2 puff inhalation Q6H PRN Wheezing 08/14/22 02/21/24 03/13/23 History aerosol inhaler (ProAir HFA) diphenhydramine HCl 50 mg capsule 2 cap PO BEDTIME 08/14/22 02/21/24 02/15/24 20:00 History (Banophen) haloperidol 5 mg tablet 1 tab PO TID PRN Agitation 08/14/22 02/21/24 03/13/23 History omeprazole 20 mg tablet,delayed 20 mg PO DAILY@0630 08/14/22 02/21/24 02/15/24 06:30 History release zolpidem 10 mg tablet 1 tab PO BEDTIME 08/14/22 02/21/24 02/15/24 20:00 History fluticasone propionate 230 2 puff inhalation BID 10/07/22 02/21/24 02/15/24 20:00 History mcg-salmeterol 21 mcg/actuation HFA inhaler (Advair HFA) benztropine 0.5 mg tablet 1 tab PO BID 10/26/22 02/21/24 02/15/24 17:00 History clonidine HCl 0.1 mg tablet 1 tab PO TID 10/26/22 02/21/24 02/15/24 20:00 Histo ry duloxetine 60 mg capsule,delayed 1 cap PO DAILY 10/26/22 02/21/24 02/15/24 07:00 History release haloperidol decanoate 100 mg/mL 75 mg IM Q4W 10/26/22 02/21/24 08/25/23 History intramuscular solution lithium carbonate 300 mg tablet 300 mg PO BID 10/26/22 02/21/24 02/15/24 20:00 History lorazepam 1 mg tablet 1 mg PO TID PRN Anxiety 03/25/23 02/21/24 Unknown History fluticasone propionate 50 2 spray intranasal DAILY 06/17/23 02/21/24 02/15/24 08:00 History mcg/actuation nasal spray,suspension prazosin 1 mg capsule 1 mg PO BEDTIME 06/17/23 02/21/24 02/15/24 20:00 History trazodone 100 mg tablet 200 mg PO BEDTIME 06/17/23 02/21/24 02/15/24 20:00 History cetirizine 10 mg tablet 10 mg PO DAILY 02/16/24 02/21/24 02/15/24 08:00 History prazosin 5 mg capsule 15 mg PO BEDTIME 02/16/24 02/21/24 02/15/24 20:00 History Exam Height,Weight and Vital Signs: Height 4 ft 11 in Weight 90 kg Last Vital Signs Temp 97.5 F 02/25/24 05:42 Pulse 101 H 02/25/24 05:42 Resp 16 02/25/24 05:42 BP 117/70 02/25/24 05:42 Pulse Ox 96 02/25/24 05:42 O2 Del Method Room Air 02/24/24 20:00 Pertinent Lab Results Pertinent Lab Results: Laboratory Tests 02/21/24 02/21/24 02:34 03:14 WBC 8.8 RBC 3.87 L Hgb 11.7 L Hct 35.1 L MCV 90.7 MCH 30.2 MCHC 33.3 RDW 13.3 Plt Count 230 MPV 11.3 Immature Gran % (Auto) 0.2 Neut % (Auto) 70.8 Lymph % (Auto) 23.3 [place] % (Auto) 4.8 Eos % (Auto) 0.6 Baso % (Auto) 0.3 Lymph # (Auto) 2.0 [place] # (Auto) 0.4 Eos # (Auto) 0.1 Baso # (Auto) 0.0 Abs Immat Gran (auto) 0.02 Absolute Neuts (auto) 6.2 Absolute Nucleated RBC 0.000 Nucleated RBC % (auto) 0.0 Sodium 137 Potassium 3.6 Chloride 105 Carbon Dioxide 24 Anion Gap 12 BUN 8 L Creatinine 0.86 Estim Creat Clear Calc 87.9 Estimated GFR > 60 Random Glucose 93 Calcium 9.2 Total Bilirubin 0.3 AST 11 ALT 8 Alkaline Phosphatase 55 Total Protein 6.6 Albumin 4.0 TSH 5.83 H Free T4 1.05 Urine Color Yellow Urine Appearance Clear Urine pH 5.5 Ur Specific [place] 1.010 Urine Protein Negative Urine Glucose (UA) Negative Urine Ketones Negative Urine Blood Negative Urine Nitrite Negative Ur Leukocyte Esterase Negative Urine Test NEGATIVE Salicylates < 5.0 L Urine Opiates Screen Not Detected Ur Buprenorphine Scrn Not Detected Ur Oxycodone Screen Not Detected Urine Methadone Screen Not Detected Urine Fentanyl Screen Not Detected Acetaminophen < 3 Ur Barbiturates Screen Not Detected Ur Phencyclidine Scrn Not Detected Ur Amphetamines Screen Not Detected U Benzodiazepines Scrn Not Detected [place] 0.67 Urine Cocaine Screen Not Detected U Marijuana (THC) Screen POSITIVE H Ethyl Alcohol < 10 COVID-19 ([facility]AL) Cancelled COVID-19 Clin Com Cancelled Influenza Type A (PCR) NEGATIVE Influenza Type B (PCR) NEGATIVE RSV RNA Qual (PCR) NEGATIVE SARS-CoV-2 RNA (RT-PCR) NEGATIVE Airway Mallampati Class: II TM Dist: >3cm Neck ROM: Full Heart: rrr Lungs: cta Assessment and Plan Assessment Anesthesia Assessment: Anesthesia Plan Discussed and Chart Reviewed Final Anesthetic Review Family History of Problems with Anesthesia: No History of Problems with Anesthesia: No NPO: Yes ASA Class: III Final Preanesthetic Review: No Changes in Pt Med Stat, Meds/Allgs Chart Reviewed and Consent Obtained/Reviewed Patient Risk: Intermediate Procedure Risk: Intermediate Anesthetic Plan Anesthetic Plan: GA Disposition: Standard PACU
[2024-02-25] MEDS: Lactated Ringers 1,000 ML 50 ML IVCONT (06:45)
--- NOTE | 2024-02-25 07:26 | MHC.SHP ---
Pre-Procedural Eval Section A - 24 Hr Update-Section A only Date of Service: 02/25/24 The patient is an INPATIENT: Yes Changes since office visit: Yes Changes in Medication and Yes Patient answered all questions; No Cold of Flu in the past 2 weeks and No New Medical Problems The patient has been examined within 24 hours of the surgical procedure. The History & Physical has been completed within 30 days and I have reviewed it.: Yes Section B - Complete if H&P > 30 days Chief Complaint: Dpression/SI Allergies: Allergies Allergy/AdvReac Type Severity Reaction Status Date / Time carbamazepine [From TEGRETOL] AdvReac Mild Nausea and Verified 02/21/24 01:33 Vomiting topiramate [From Topamax] AdvReac Mild Nausea and Verified 02/21/24 01:33 Vomiting Plan I have reviewed the history and physical and performed a pertinent physical examination on my patient. No changes have occurred unless specified. Time Spent With Patient Time: Total time managing care of this patient today ____ minutes.
--- NOTE | 2024-02-25 08:12 | HO.ECTPROC ---
ECT Procedure Note Diagnosis/Treatment Date of Service: 02/25/24 Diagnosis: Major Depressive Disorder Previous ECT Date: 01/24/24 Treatment: Maintenance Interval Clinical Notes: Patient generally doing well with maintenance has breakthroughs but continues to feel ECT is effective scheduled to be discharged from inpatient unit Time: Total time managing care of this patient today ____ minutes. ECT Settings Device: THYMATRON DGx Electrode Placement: Bitemporal Program/Pulse Width: 0.50 Energy Percent: 100 Seizure Duration By EEG (in seconds): 21 Medications Administration General Anesthetic: Etomidate (16) Muscle Relaxant: Succinylcholine (100) Ancillary Medications Analgesics: Torodol - Pre ECT Anti-emetics: Zofran - Pre ECT Airway Management Airway Management: Bag Mask Ventilation Treatment Recommendations Notes: lower etom 14 mg Pt Tolerated Procedure w/o Issue: Yes
--- NOTE | 2024-02-25 08:26 | P.PNPSI_ITS ---
Subjective Subjective Date of Service: 02/25/24 Reason For Visit: Dpression/SI Interim History: Met with patient; discussed with team Patient had ECT today. Says she is feeling much better and would like to discharge. Of note, patient is up, out of her room walking around the milieu, socializing with peers and staff and with a noticeably brighter affect. Patient reiterates this was her initial request on admission to which specifications writer agrees. Patient said that she is feeling very triggered on the unit (which continues to have a particularly high acuity) and that if she remains longer, she will soon start to decompensate. She says all the yelling, aggression is triggering flashbacks. She said she has been working so hard to stay safe, has resisted her urges to self-harm and that for the 1st time ever she self-presented to the hospital for admission... Verses always having been sectioned in the past. She is proud of herself for her efforts and feels this is good evidence that she is able to stay safe. She says she will come back to the hospital if she would all feels unsafe. Discussed with health social work professor who agrees that patient is back to her baseline and appropriate for discharge; specifications writer and SW also both agree that patient's improvement is being significantly challenged by the high acuity on the unit and that patient has done well, keeping herself safe despite this. Also both agree that it is a significant yary that patient self presented to the hospital in order to stay safe, resisting self-harm, demonstrating much progress. Initially group president wanted patient to stay over the weekend but after discussing case further, she agrees with plan for discharge back home. Mental Status Exam Mental Status Exam Narrative: Pt is alert and oriented; behavior calm, cooperative, friendly; dressed in casual attire with combed hair, adequate hygiene; numerous chronic scars up and down bilateral forearms from hx of superficial cutting; mood is described as good and affect congruent, bright, calm; eye contact appropriate; Speech is normal rate, volume and prosody; no psychomotor retardation present; thought process is goal directed, logical and linear; Thought content is on continuing to work on coping skills and discharge; currently no urges to self-harm; otherwise pertinent to relevant topics and without any delusional content, paranoid ideations or grandiosity; denies SI; denies HI. No AVH; Patients insight and judgment are fair. Diagnostics Vital Signs (24Hr): Vital Signs - 24 hr 02/24/24 14:40 02/24/24 20:00 02/24/24 20:55 Temperature 98.3 F Pulse Rate 78 84 Respiratory Rate 16 16 Blood Pressure 109/78 115/75 115/75 Pulse Oximetry 98 96 Oxygen Delivery Method Room Air Room Air Oxygen Flow Rate 02/24/24 20:56 02/24/24 20:56 02/25/24 05:42 Temperature 97.5 F Pulse Rate 101 H Respiratory Rate 16 Blood Pressure 115/75 115/75 117/70 Pulse Oximetry 96 Oxygen Delivery Method Oxygen Flow Rate 02/25/24 08:09 02/25/24 08:14 02/25/24 08:19 Temperature 98.8 F Pulse Rate 106 H 100 96 Respiratory Rate 16 16 18 Blood Pressure 118/95 H 119/72 110/90 H Pulse Oximetry 97 97 96 Oxygen Delivery Method Nasal Cannula with ETCO2 Nasal Cannula with ETCO2 Nasal Cannula with ETCO2 Oxygen Flow Rate 2 2 2 BMI result Body Mass Index 40.1 Labs 02/21/24 02:34 02/21/24 02:34 Medications Medications Current Medications Acetaminophen (Acetaminophen 325 Mg Tablet) 650 mg PO Q6H PRN PRN Reason: Headache/Pain Mild Scale (1-3) Al Hydroxide/Mg Hydroxide (Magnesium Hydrox/Alum Hydrox 30 Ml Oral.Susp) 30 ml PO Q6H PRN PRN Reason: Heartburn/Nausea Albuterol Sulfate (Albuterol Sulfate 90 Mcg 8 Gm Inhaler) 2 puff INHALE Q6H PRN PRN Reason: Wheezing Benztropine Mesylate (Benztropine Mesylate 0.5 Mg Tablet) 0.5 mg PO BID [facility] Last Admin: 02/24/24 20:56 Dose: 0.5 mg Clonidine HCl (Clonidine Hcl 0.1 Mg Tablet) 0.1 mg PO TID [facility]; Protocol Last Admin: 02/24/24 20:56 Dose: 0.1 mg Diphenhydramine HCl (Diphenhydramine Hcl 25 Mg Capsule) 100 mg PO BEDTIME [facility] Last Admin: 02/24/24 20:56 Dose: 100 mg Duloxetine HCl (Duloxetine Hcl 60 Mg Capsule.Dr) 60 mg PO DAILY [facility] Last Admin: 02/24/24 14:45 Dose: 60 mg Fluticasone Propionate (Fluticasone Propionate Nasal 16 Gm [place]) 2 spray NOSTRIL-B DAILY [facility] Last Admin: 02/24/24 16:17 Dose: Not Given Fluticasone/Vilanterol (Fluticasone/Vilanterol 200/25 Blst.W.Dev) 1 puff INHALE RDAILY [facility] Last Admin: 02/24/24 16:17 Dose: Not Given Haloperidol (Haloperidol 5 Mg Tablet) 5 mg PO TID PRN PRN Reason: Restlessness Last Admin: 02/24/24 20:57 Dose: 5 mg Hydroxyzine HCl (Hydroxyzine Hcl 25 Mg Tablet) 25 mg PO Q6H PRN PRN Reason: Anxiety Last Admin: 02/25/24 01:44 Dose: 25 mg Lactated Ringer's (Lr) 1,000 mls @ 50 mls/hr IVCONT .Q20H [facility] Last Admin: 02/25/24 06:45 Dose: 50 mls/hr Lattimer Carbonate (Lattimer Carbonate 300 Mg Capsule) 300 mg PO BID [facility] Last Admin: 02/24/24 15:27 Dose: Not Given Loratadine (Loratadine 10 Mg Tablet) 10 mg PO DAILY [facility] Last Admin: 02/24/24 14:45 Dose: 10 mg Lorazepam (Lorazepam 1 Mg Tablet) 1 mg PO TID PRN PRN Reason: Anxiety Last Admin: 02/24/24 15:20 Dose: 1 mg Magnesium Hydroxide (Milk Of Magnesia 30 Ml Oral.Susp) 30 ml PO DAILY PRN PRN Reason: Constipation Last Admin: 02/24/24 21:40 Dose: 30 ml Nicotine (Nicotine 21 Mg Patch.Td24) 21 mg TRANSDERMA DAILY PRN PRN Reason: smoking cessation Nicotine Polacrilex (Nicotine Polacrilex 2 Mg Gum) 4 mg BUCCAL Q2H PRN PRN Reason: Nicotine Cravings Omeprazole (Omeprazole 20 Mg Capsule.Dr) 20 mg PO DAILY@0630 [facility] Last Admin: 02/24/24 06:28 Dose: 20 mg Prazosin HCl (Prazosin Hcl 5 Mg Capsule) 15 mg PO BEDTIME [facility]; Protocol Last Admin: 02/24/24 20:56 Dose: 15 mg Prazosin HCl (Prazosin Hcl 1 Mg Capsule) 1 mg PO BEDTIME [facility]; Protocol Last Admin: 02/24/24 20:55 Dose: 1 mg Trazodone HCl (Trazodone Hcl 100 Mg Tablet) 200 mg PO BEDTIME [facility] Last Admin: 02/24/24 20:55 Dose: 200 mg Trazodone HCl (Trazodone Hcl 50 Mg Tablet) 50 mg PO BEDTIME [facility]X1 PRN PRN Reason: Insomnia Last Admin: 02/24/24 23:07 Dose: 50 mg Zolpidem Tartrate (Zolpidem Tartrate 5 Mg Tablet) 10 mg PO BEDTIME [facility] Last Admin: 02/24/24 23:07 Dose: 10 mg Allergies Allergies Allergy/AdvReac Type Severity Reaction Status Date / Time carbamazepine [From TEGRETOL] AdvReac Mild Nausea and Verified 02/21/24 01:33 Vomiting topiramate [From Topamax] AdvReac Mild Nausea and Verified 02/21/24 01:33 Vomiting Assessment & Plan Assessment & Plan (1) Chronic post-traumatic stress disorder (PTSD): Status: Chronic Code(s): F43.12 - Post-traumatic stress disorder, chronic (2) Borderline personality disorder: Status: Chronic Code(s): F60.3 - Borderline personality disorder Plan Pt is a 38 y.o. female, with? PTSD with extensive trauma history, and BPD, (carries a dx of schizoaffective DO, depressive type),chronic SI, chronic self- harming urges/ behaviors and multiple inpatient admissions who presents for increased urges to self-harm following relational strife at halfway. Patient reports it has been about 5 months since she was last psychiatrically admitted. She says she was overall doing well and has not had much urges to harm, having restrained herself over the past month. Patient said she was at the halfway and overheard the staff making comments about her; she said they make me feel like I do not belong. Patient said she got into an argument with a specific staff member though she does not really remember over what exactly. However this emotional interaction triggered thoughts to self-harm and patient very much wanted to do so. She called crisis who talked her out of going to the emergency room; the next day her self harming urges remained and she called crisis again and self presented. Patient denies any actual suicidality, just thoughts to cut herself. In the emergency room, patient tied a bed sheet around her neck. She said she was not really trying to hurt herself, she was just angry, frustrated and so just needed some how to express it. Patient reports continuing urges to self-harm though she says she is able to remain safe. She asks she can get ECT this Wednesday, saying she was scheduled for it as an outpatient. Patient denies recent bouts of depression. Formulation; clinical reasoning: Patient presents with similar presentation to past admissions. Says she is already starting to feel overall better and that she will be able to return to the halfway. Unit acuity is triggering for her. Patient says she should likely remain on one-to-one because off of it she gets trigger to self-harm and worries she will punch herself in the face; she reminds specifications writer that she is typically on one-to-one throughout her admissions Hospital course: 02/22 pt says she's having a hard time and has AH; lots of negative thoughts to self-harm; she says she's been able to keep herself from it; one time made comment i'm going to kill myself but calmed down. Says roommate provoking her (to which specifications writer agrees) and pt felt better having moved rooms. Says she's afraid if off 1:1 will self harm. Asks for ECT -specifications writer discussed ECT with Dr. Silva who agrees; scheduled for wednesday -discussed coping skills; discussed anxiety, medication; agrees to try increased Hydroxyzine in effort to avoid more antipsychotic 02/23 depressed, self harm urges and needs 1:1 -will hold Lattimer today since ECT tomorrow 02/24 Patient had ECT today. Says she is feeling much better and would like to discharge. She is with noticeably brighter affect, out and about in the milieu, socializing with peers and staff. She is future oriented talking about her upcoming birthday that she will be spending with her mother. Patient reiterates this was her initial request on admission to which specifications writer agrees. Patient said that she is feeling very triggered on the unit (which continues to have a particularly high acuity) and that if she remains longer, she will soon start to decompensate. She says all the yelling, aggression is triggering flashbacks. She said she has been working so hard to stay safe, has resisted her urges to self-harm and that for the 1st time ever she self-presented to the hospital for admission... Verses always having been sectioned in the past. She is proud of herself for her efforts and feels this is good evidence that she is able to stay safe. She says she will come back to the hospital if she would all feels unsafe. Discussed with health social work professor who agrees that patient is back to her baseline and appropriate for discharge; specifications writer and SW also both agree that patient's improvement is being significantly challenged by the high acuity on the unit and that patient has done well, keeping herself safe despite this. Also both agree that keeping her longer will very likely be counter therapeutic, resulting in her decompensation rather than providing any additional benefit. Of note it is a significant yary that patient self presented to the hospital in order to stay safe, resisting self-harm, demonstrating much progress. Initially group president wanted patient to stay over the weekend but after discussing case further, she agrees with plan for discharge back home. Patient is at baseline. At at baseline patient chronically struggles with SI, urges to self-harm and intermittent self-harming behavior. However, patient and her group-home staff have been dealing with such behaviors for years, and with which time is typically able navigate through and remain in the community. Team discussed patient's discharge with group president who agrees that patient is appropriate for discharge, at her baseline and able to return home. She denies any SI or HI or self-harm behaviors and AH has resolved; she reports feeling stable and ready to go home; patient is future oriented, discussing her plans for her birthday. While she will almost certainly continue to struggle with intermittent self-harming urges and behaviors staying in the hospital longer will not resolve this; rather this is a long-term, chronic issue that continues to require group home term outpt therapy, of which she is engaged.? Patient's request for discharge honored. Plan: DC Patient educated on: diagnosis, medication risk/benefits, ECT and therapeutic strategies Informed Consent: understands Reason for continued inpatient stay Substantial Risk for: stable for discharge Time Spent With Patient Time: Total time managing care of this patient today ____ minutes.
[2024-02-25] MEDS: Heparin Sodium,Porcine Flush 500 UNIT/5 ML SYRINGE IVFLUSH (08:47)
[2024-02-25] MEDS: cloNIDine HCL 0.1 MG TABLET PO (09:14)
[2024-02-25] MEDS: Omeprazole 20 MG CAPSULE.DR PO (09:14)
[2024-02-25] MEDS: Fluticasone Propionate Nasal 16 GM SPRAY 2 SPRAY NOSTRIL-B (09:14)
[2024-02-25] MEDS: Loratadine 10 MG TABLET PO (09:14)
[2024-02-25] MEDS: Benztropine Mesylate 0.5 MG TABLET PO (09:14)
[2024-02-25] MEDS: DULoxetine HCl 60 MG CAPSULE.DR PO (09:14)
[2024-02-25] MEDS: Acetaminophen 325 MG TABLET 650 MG PO (11:41)
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
[2024-02-25 15:29] LABS: Lithium 0.39 mmol/L (0.60-1.20)
== END 2024-02-25 15:10 | disposition home or self-care (01) | DRG 752 ==
LOC: HO.ED 10:03 → HO.PM5 15:06
PROVIDERS: Physician Assistant Medical; Psychiatry & Neurology Psychiatry; Admitting Provider Psychiatry & Neurology Psychiatry; Emergency Provider Emergency Medicine; PCP Pediatrics; Visit Provider Psychiatry & Neurology Psychiatry
PROC: GZB4ZZZ Other Electroconvulsive Therapy (ICD-10-PCS; CPT 90870; principal; 2024-02-25 07:00)
DX: F60.3 Borderline personality disorder (principal); R45.851 Suicidal ideations; F43.12 Post-traumatic stress disorder, chronic; J44.9 Chronic obstructive pulmonary disease, unspecified; Z20.822 Contact with and (suspected) exposure to COVID-19; Z79.51 Long term (current) use of inhaled steroids; Z87.891 Personal history of nicotine dependence; Z79.899 Other long term (current) drug therapy
CPT/HCPCS: 0241U; 36415; 80053; 80143; 80178; 80179; 80307; 81003; 81025; 84439; 84443; 85025; 90870; 99285; J0330; J1596; J1642; J1805; J2060; J2359; J2405; J2704; J7120

== ENCOUNTER → 2024-02-21 14:53 | Outpatient (BNV) | payer OTHER, SELFPAY | PROVIDERS: Admitting Provider Psychiatry & Neurology Psychiatry; Emergency Provider Emergency Medicine; PCP Pediatrics; Visit Provider Psychiatry & Neurology Psychiatry | DX: F60.3 Borderline personality disorder (principal); F43.12 Post-traumatic stress disorder, chronic | CPT/HCPCS: 99232; 99499 ==

== ENCOUNTER → 2024-02-21 14:53 | Outpatient (BNV) | payer OTHER, SELFPAY | PROVIDERS: Admitting Provider Psychiatry & Neurology Psychiatry; Emergency Provider Emergency Medicine; PCP Pediatrics; Visit Provider Student in an Organized Health Care Education/Training Program | DX: R45.851 Suicidal ideations (principal); Z01.818 Encounter for other preprocedural examination | CPT/HCPCS: 99221 ==

== ENCOUNTER → 2024-02-21 14:53 | Outpatient (BNV) | payer OTHER, SELFPAY | PROVIDERS: Admitting Provider Psychiatry & Neurology Psychiatry; Emergency Provider Emergency Medicine; PCP Pediatrics; Visit Provider Psychiatry & Neurology Psychiatry | DX: F43.12 Post-traumatic stress disorder, chronic (principal) | CPT/HCPCS: 90870 ==

== ENCOUNTER 2024-03-08 05:57 | Day surgery (SDC) | payer OTHER, SELFPAY ==
[2024-03-08 06:34] VITALS: BP 139/88; PULSE 88; RESP 20; TEMP 36.1; O2SAT 97; BMI 44.4
--- NOTE | 2024-03-08 06:40 | P.CONAN_ITS ---
HPI - Anesthesia Eval Consult details Narrative: for ECT PMFSH Active Problems Active Problems: All Active Problems Port-A-Cath in place (Acute) Intentional self-harm (Acute) COPD (chronic obstructive pulmonary disease) (Acute) Asthma (Acute) Adjustment disorder (Acute) Anxiety (Acute) Injury of ligament of right knee (Acute) Sprain of anterior cruciate ligament of right knee (Acute) Hernia (Chronic) Schizoaffective disorder, depressive type (Chronic) Chronic post-traumatic stress disorder (PTSD) (Chronic) Increased BMI (Acute) GERD (gastroesophageal reflux disease) (Acute) Borderline personality disorder (Chronic) Past Medical History Medical History Port-A-Cath in place History of electroconvulsive therapy COVID-19 COVID-19 Sprain of left foot Chronic post-traumatic stress disorder (PTSD) COPD (chronic obstructive pulmonary disease) Increased BMI GERD (gastroesophageal reflux disease) Recurrent major depression-severe Acute post-traumatic stress disorder Injury, self-inflicted Suicidal ideation Self-harming behavior Intentional self-harm Suicidal ideation Borderline personality disorder Schizoaffective disorder Adjustment disorder Asthma Depression Anxiety PTSD (post-traumatic stress disorder) Family History Family History Mother Brain cancer Other No family history of cardiac disease Pertinent family history: j Family history of problems with anesthesia: No Surgical History History of Problems with Anesthesia: No Social History Social History Household Members: Other Household Members Other:: senior living staff and peers Housing: Other Housing Other:: [facility] Do you presently have visiting nurse or other home services: No Unable to assess alcohol history related to: Unable to respond Alcohol intake: never Comment: 1:1 sitter Patient Tobacco Use Status: Former Tobacco user Tobacco use type: Cigarette Cigarette Packs Per Day: 0.5 Cigarettes Per Day: 4 Years Smoked: 20 e-Cigarette/Vaping Use: Never Used Second Hand Smoke Exposure: No Substance Use Type: Marijuana Advance Directives: No Advance Directives Information Provided: Yes service: No Sexual orientation: Straight/Heterosexual Meds Allergies Allergy/AdvReac Type Severity Reaction Status Date / Time carbamazepine [From TEGRETOL] AdvReac Mild Nausea and Verified 02/21/24 01:33 Vomiting topiramate [From Topamax] AdvReac Mild Nausea and Verified 02/21/24 01:33 Vomiting Home Medications ?Medication ?Instructions ?Recorded ?Confirmed ?Last Taken ?Type albuterol sulfate 90 mcg/actuation 2 puff inhalation Q6H PRN Wheezing 08/14/22 02/21/24 03/13/23 History aerosol inhaler (ProAir HFA) diphenhydramine HCl 50 mg capsule 2 cap PO BEDTIME 08/14/22 02/21/24 02/15/24 20:00 History (Banophen) haloperidol 5 mg tablet 1 tab PO TID PRN Agitation 08/14/22 02/21/24 03/13/23 History omeprazole 20 mg tablet,delayed 20 mg PO DAILY@0630 08/14/22 02/21/24 02/15/24 06:30 History release zolpidem 10 mg tablet 1 tab PO BEDTIME 08/14/22 02/21/24 02/15/24 20:00 History fluticasone propionate 230 2 puff inhalation BID 10/07/22 02/21/24 02/15/24 20:00 History mcg-salmeterol 21 mcg/actuation HFA inhaler (Advair HFA) benztropine 0.5 mg tablet 1 tab PO BID 10/26/22 02/21/24 02/15/24 17:00 History clonidine HCl 0.1 mg tablet 1 tab PO TID 10/26/22 02/21/24 02/15/24 20:00 History duloxetine 60 mg capsule,delayed 1 cap PO DAILY 10/26/22 02/21/24 02/15/24 07:00 History release haloperidol decanoate 100 mg/mL 75 mg IM Q4W 10/26/22 02/21/24 08/25/23 History intramuscular solution lithium carbonate 300 mg tablet 300 mg PO BID 10/26/22 02/21/24 02/15/24 20:00 History lorazepam 1 mg tablet 1 mg PO TID PRN Anxiety 03/25/23 02/21/24 Unknown History fluticasone propionate 50 2 spray intranasal DAILY 06/17/23 02/21/24 02/15/24 08:00 History mcg/actuation nasal spray,suspension prazosin 1 mg capsule 1 mg PO BEDTIME 06/17/23 02/21/24 02/15/24 20:00 History trazodone 100 mg tablet 200 mg PO BEDTIME 06/17/23 02/21/24 02/15/24 20:00 History cetirizine 10 mg tablet 10 mg PO DAILY 02/16/24 02/21/24 02/15/24 08:00 History prazosin 5 mg capsule 15 mg PO BEDTIME 02/16/24 02/21/24 02/15/24 20:00 History Exam Height,Weight and Vital Signs: Height 4 ft 11 in Weight 99.79 kg Last Vital Signs Temp 97.0 F 03/08/24 06:34 Pulse 88 03/08/24 06:34 Resp 20 03/08/24 06:34 BP 139/88 03/08/24 06:34 Pulse Ox 97 03/08/24 06:34 O2 Del Method Room Air 03/08/24 06:34 Airway Mallampati Class: II TM Dist: <=3cm Neck ROM: Full Heart: ok Lungs: ok Assessment and Plan Assessment Anesthesia Assessment: Anesthesia Plan Discussed and Chart Reviewed Final Anesthetic Review Family History of Problems with Anesthesia: No History of Problems with Anesthesia: No NPO: Yes ASA Class: III Final Preanesthetic Review: No Changes in Pt Med Stat, Meds/Allgs Chart Reviewed, Consent Obtained/Reviewed and Anes Risks/Benef Reviewed Patient Risk: Low Procedure Risk: Intermediate Anesthetic Plan Anesthetic Plan: GA and Agree w/ Assess. and Plan Disposition: Standard PACU
--- NOTE | 2024-03-08 07:04 | MHC.SHP ---
Pre-Procedural Eval Section A - 24 Hr Update-Section A only Date of Service: 03/08/24 The patient is an INPATIENT: No Changes since office visit: No Cold of Flu in the past 2 weeks, No New Medical Problems, No Changes in Medication and No Patient answered all questions The patient has been examined within 24 hours of the surgical procedure. The History & Physical has been completed within 30 days and I have reviewed it.: No Section B - Complete if H&P > 30 days Chief Complaint: depression Details of Present Illness: Long history of self-harming behavior, psychosis and depression, stable on ECT Relevant Family History (Specify if Yes): Yes Relevant Social History: Other (specify) (POOR social support, chronically placed on group homes and respite) Present Medications: see Short Stay Collaborative assessment Medical History: No relevant PMH History of Previous Operations: Relevant previous surgery/procedure and date(s) Allergies: Allergies Allergy/AdvReac Type Severity Reaction Status Date / Time carbamazepine [From TEGRETOL] AdvReac Mild Nausea and Verified 02/21/24 01:33 Vomiting topiramate [From Topamax] AdvReac Mild Nausea and Verified 02/21/24 01:33 Vomiting Review of Systems Sugical H&P ROS: Negative: Cardiovascular, Respiratory and Neurological and Yes, Specify: Psychiatric (anxiety limited self harm ) Exam Surgical H&P Exam: Normal: Heart (rr no murmur), Normal: Lungs (clear) and Normal: Neurological Plan Diagnosis/Plan: Unchanged I have reviewed the history and physical and performed a pertinent physical examination on my patient. No changes have occurred unless specified. Time Spent With Patient Time: Total time managing care of this patient today ____ minutes.
--- NOTE | 2024-03-08 07:08 | HO.ECTPROC ---
ECT Procedure Note Diagnosis/Treatment Date of Service: 03/08/24 Diagnosis: Major Depressive Disorder Previous ECT Date: 01/24/24 Treatment: Maintenance Interval Clinical Notes: Patient states she is doing okay feels that she does better she is having ECT every 2 4 weeks less self harming and mood instability no complaints of side effects ECT completed as per usual treatment bitemporally Time: Total time managing care of this patient today ____ minutes. ECT Settings Device: THYMATRON DGx Electrode Placement: Bitemporal Program/Pulse Width: 0.50 Energy Percent: 100 Seizure Duration By EEG (in seconds): 33 Medications Administration General Anesthetic: Etomidate (16) Muscle Relaxant: Succinylcholine (100) Ancillary Medications Analgesics: Torodol - Pre ECT Anti-emetics: Zofran - Pre ECT Airway Management Airway Management: Bag Mask Ventilation Treatment Recommendations Notes: Etomidate can be decreased to 14 mg follow-up treatment approximately 2 and weeks Pt Tolerated Procedure w/o Issue: Yes
[2024-03-08 07:31] VITALS: BP 111/81; PULSE 78; RESP 16; TEMP 36.6; O2SAT 93
[2024-03-08 07:36] VITALS: BP 144/81; PULSE 85; RESP 19; O2SAT 95
[2024-03-08 07:41] VITALS: BP 131/75; PULSE 86; RESP 20; O2SAT 94
[2024-03-08 07:46] VITALS: BP 124/66; PULSE 85; RESP 17; O2SAT 96
[2024-03-08 08:05] VITALS: BP 132/82; PULSE 83; RESP 18; TEMP 36.1; O2SAT 97
== END 2024-03-08 08:53 | disposition home or self-care (01) ==
PROVIDERS: PCP Pediatrics; Visit Provider Psychiatry & Neurology Psychiatry
PROC: (CPT 90870; principal; 2024-03-08 07:00)
DX: F43.12 Post-traumatic stress disorder, chronic (principal); F60.3 Borderline personality disorder; Z79.51 Long term (current) use of inhaled steroids; Z79.899 Other long term (current) drug therapy; Z88.8 Allergy status to other drugs, medicaments and biological substances; F33.3 Major depressive disorder, recurrent, severe with psychotic symptoms
CPT/HCPCS: 90870; J0330; J1642; J2405

== ENCOUNTER → 2024-03-08 05:57 | Outpatient (BNV) | payer OTHER, SELFPAY | PROVIDERS: PCP Pediatrics; Visit Provider Psychiatry & Neurology Psychiatry | DX: F33.3 Major depressive disorder, recurrent, severe with psychotic symptoms (principal) | CPT/HCPCS: 90870 ==

== ENCOUNTER 2024-03-10 20:26 | Emergency (ER) | payer OTHER, SELFPAY ==
[2024-03-10 20:31] VITALS: BP 105/52; PULSE 116; RESP 18; TEMP 36.4; O2SAT 97; BMI 44.4
[2024-03-10] MEDS: LORazepam 2 MG/ML VIAL IM (20:50)
[2024-03-10] MEDS: Haloperidol Lactate 5 MG/ML VIAL IM (20:50)
[2024-03-10 20:55] LABS: Appearance Urine Clear; Color Urine Yellow; Glucose Urine UA Negative (Negative); Leukocyte Esterase Urine Negative (Negative); Nitrite Urine Negative (Negative); PH 6.5 (5.0-9.0); Specific Gravity - Urine <= 1.005 (1.005-1.025); UMIC TRIGGER UA YES; Urine Blood Trace (Negative); Urine Ketones Negative (Negative); Urine Protein Negative (Neg-Trace)
[2024-03-10 21:01] LABS: Bacteria Urine Trace (None Seen); Hyaline Casts Urine 0-2 /LPF (0-2); RBC Urine 0-2 /HPF (0-2); WBC Urine 0-5 /HPF (0-5)
[2024-03-10 21:11] LABS: Amphetamine Screen Urine Not Detected (Not Detect); Barbiturates, Urine Not Detected (Not Detect); Benzodiazepines Screen Urine Not Detected (Not Detect); Buprenorphine Scr Not Detected (Not Detect); Cannabinoid Screen Urine POSITIVE (Not Detect); Cocaine Screen Urine Not Detected (Not Detect); Fentanyl, urine Not Detected (Not Detect); Methadone Screen, Urine Not Detected (Not Detect); Opiate Screen Urine Not Detected (Not Detect); Oxycodone Screen Urine Not Detected (Not Detect); Phencyclidine Screen Urine Not Detected (Not Detect)
--- NOTE | 2024-03-10 23:01 | ED.PSYCH ---
HPI - Psych General Chief Complaint: Psychiatric Symptoms Stated Complaint: Auditory hallucinations, SI, no HI Time Seen by Provider: 03/10/24 20:40 Source: patient Mode of arrival: EMS Limitations: no limitations History of Present Illness ED Provider: candelario KUMAR Narrative: Patient's history of schizoaffective disorder well known to our services been here multiple times called 911 for command hallucination telling her to harm herself on arrival patient was calm asking for injection of Haldol and Ativan Related Data Home Medications ?Medication ?Instructions ?Recorded ?Confirmed albuterol sulfate 90 mcg/actuation 2 puff inhalation Q6H PRN Wheezing 08/14/22 03/10/24 aerosol inhaler (ProAir HFA) diphenhydramine HCl 50 mg capsule 2 cap PO BEDTIME 08/14/22 03/10/24 (Banophen) haloperidol 5 mg tablet 1 tab PO TID PRN Agitation 08/14/22 03/10/24 omeprazole 20 mg tablet,delayed 20 mg PO DAILY@0630 08/14/22 03/10/24 release zolpidem 10 mg tablet 1 tab PO BEDTIME 08/14/22 03/10/24 fluticasone propionate 230 2 puff inhalation BID 10/07/22 03/10/24 mcg-salmeterol 21 mcg/actuation HFA inhaler (Advair HFA) benztropine 0.5 mg tablet 1 tab PO BID 10/26/22 03/10/24 clonidine HCl 0.1 mg tablet 1 tab PO TID 10/26/22 03/10/24 duloxetine 60 mg capsule,delayed 1 cap PO DAILY 10/26/22 03/10/24 release haloperidol decanoate 100 mg/mL 75 mg IM Q4W 10/26/22 03/10/24 intramuscular solution lithium carbonate 300 mg tablet 300 mg PO BID 10/26/22 03/10/24 lorazepam 1 mg tablet 1 mg PO TID PRN Anxiety 03/25/23 03/10/24 fluticasone propionate 50 2 spray intranasal DAILY 06/17/23 03/10/24 mcg/actuation nasal spray,suspension prazosin 1 mg capsule 1 mg PO BEDTIME 06/17/23 03/10/24 trazodone 100 mg tablet 200 mg PO BEDTIME 06/17/23 03/10/24 cetirizine 10 mg tablet 10 mg PO DAILY 02/16/24 03/10/24 prazosin 5 mg capsule 15 mg PO BEDTIME 02/16/24 03/10/24 erythromycin 5 mg/gram (0.5 %) eye 0.5 inch ophthalmic-Left QID 03/10/24 03/10/24 ointment Previous Rx's ?Medication ?Instructions ?Recorded acetaminophen 325 mg tablet 650 mg (2 x 325 mg) PO Q6H PRN 02/25/24 Headache/Pain Mild Scale (1-3) #0 tabs Allergies Allergy/AdvReac Type Severity Reaction Status Date / Time carbamazepine [From TEGRETOL] AdvReac Mild Nausea and Verified 03/10/24 20:36 Vomiting topiramate [From Topamax] AdvReac Mild Nausea and Verified 03/10/24 20:36 Vomiting Review of Systems Review of Systems: Yes all other systems are reviewed and are negative [facility] Past Medical History Medical History Port-A-Cath in place History of electroconvulsive therapy COVID-19 COVID-19 Sprain of left foot Chronic post-traumatic stress disorder (PTSD) COPD (chronic obstructive pulmonary disease) Increased BMI GERD (gastroesophageal reflux disease) Recurrent major depression-severe Acute post-traumatic stress disorder Injury, self-inflicted Suicidal ideation Self-harming behavior Intentional self-harm Suicidal ideation Borderline personality disorder Schizoaffective disorder Adjustment disorder Asthma Depression Anxiety PTSD (post-traumatic stress disorder) Family History Family History Mother Brain cancer Other No family history of cardiac disease Social History Social History Household Members: Other Household Members Other:: nursing home staff and peers [facility]: [facility] Do you presently have visiting nurse or other home services: No Unable to assess alcohol history related to: Unable to respond Alcohol intake: never Comment: 1:1 sitter Patient Tobacco Use Status: Former Tobacco user Tobacco use type: Cigarette Cigarette Packs Per Day: 0.5 Cigarettes Per Day: 4 Years Smoked: 20 e-Cigarette/Vaping Use: Never Used Second Hand Smoke Exposure: No Substance Use Type: Marijuana Advance Directives: No Advance Directives Information Provided: No Do you have a plan to hurt others: No Plan service: No Sexual orientation: Straight/Heterosexual Physical Exam Vital Signs: Vital Signs: Last Vital Signs Temp 97.5 F 03/10/24 20:31 Pulse 116 H 03/10/24 20:31 Resp 18 03/10/24 20:31 BP 105/52 L 03/10/24 20:31 Pulse Ox 97 03/10/24 20:31 O2 Del Method Room Air 03/10/24 20:31 BMI result Body Mass Index 44.4 Appearance: Alert. Oriented X3. No acute distress. Eyes: PERRLA, No Nystagmus ENT: Pharynx normal. Oral Mucosa moist Neck: Normal inspection. Neck supple. CVS: Normal heart rate and rhythm. Pulses normal. Respiratory: No respiratory distress. Equal air entry bilateral, no wheezing/rales/rhonchi Abdomen: Soft and nontender. Bowel sounds are present, no mass palpable, no CVA tenderness Skin: Skin warm and dry. Normal skin color. Normal skin turgor. Extremities: No lower extremity edema. No calf tenderness psych anxious denies any SI or HI Neuro: Oriented X 3. No motor deficit. No sensory deficit.No cerebellar signs , cranial nerves II-XII intact Medications Administered Discontinued Medications Generic Name Dose Route Start Last Admin Trade Name Griffinq PRN Reason Stop Dose Admin Haloperidol Lactate 5 mg 03/10/24 20:40 03/10/24 20:50 Haloperidol Lactate 5 Mg/Ml Vial IM 03/10/24 20:41 5 mg ONCE ONE Administration Lorazepam 2 mg 03/10/24 20:40 03/10/24 20:50 Lorazepam 2 Mg/Ml Vial IM 03/10/24 20:41 2 mg ONCE ONE Administration Medical Decision Making Medical Decision Making MDM Narrative: Patient has schizoaffective disorder command hallucination will get care team evaluation Lab Data MDM Lab Attestation statement: I reviewed the patient's lab results. 03/10/24 23:44 03/10/24 23:44 Labs: Lab Results 03/10/24 03/10/24 03/10/24 Range/Units 20:40 20:44 23:44 WBC 7.4 (4.8-10.8) X10*3/uL RBC 3.57 L (4.20-5.50) X10*6/uL Hgb 11.0 L (12.0-16.0) g/dl Hct 32.8 L (37.0-47.0) % MCV 91.9 (80.0-98.0) fL MCH 30.8 (27.0-33.0) pg MCHC 33.5 (31.0-35.0) g/dl RDW 13.6 (11.0-16.0) % Plt Count 245 (160-400) X10*3/uL MPV 11.6 (9.4-12.3) fL Immature Gran % (Auto) 0.4 (0.0-0.4) % Neut % (Auto) 71.2 (45-73) % Lymph % (Auto) 22.2 (20-40) % Kerr % (Auto) 5.3 (2-11) % Eos % (Auto) 0.5 (0-4) % Baso % (Auto) 0.4 (0-2) % Lymph # (Auto) 1.6 (1.2-4.9) X10*3/uL [place] # (Auto) 0.4 (0.1-1.2) X10*3/uL Eos # (Auto) 0.0 (0.0-0.4) X10*3/uL Baso # (Auto) 0.0 (0.0-0.2) X10*3/uL Abs Immat Gran (auto) 0.03 (0.00-0.03) X10*3/uL Absolute Neuts (auto) 5.3 (2.0-8.3) x10*3/uL Absolute Nucleated RBC 0.000 (0.0-0.012) X10*3/uL Nucleated RBC % (auto) 0.0 (0.0-0.2) /100WBC Sodium 141 (135-145) mmol/L Potassium 3.7 (3.3-5.1) mmol/L Chloride 109 H (96-108) mmol/L Carbon Dioxide 25 (22-29) mmol/L Anion Gap 11 L (12-20) BUN 5 L (9-16) mg/dL Creatinine 0.79 (0.5-1.4) mg/dL Estim Creat Clear Calc 101.3 Estimated GFR > 60 Random Glucose 101 (60-115) mg/dL Calcium 9.3 (8.4-10.2) mg/dL Total Bilirubin 0.2 (0.0-1.0) mg/dL AST 9 (5-31) U/L ALT 9 (0-31) U/L Alkaline Phosphatase 53 (39-117) U/L Total Protein 6.0 L (6.5-8.0) g/dL Albumin 3.7 (3.5-5.0) g/dL Urine Color Yellow Urine Appearance Clear Urine pH 6.5 (5.0-9.0) Ur Specific Fine <= 1.005 (1.005-1.025) Urine Protein Negative (Neg-Trace) mg/dL Urine Glucose (UA) Negative (Negative) mg/dL Urine Ketones Negative (Negative) mg/dL Urine Blood Trace H (Negative) Urine Nitrite Negative (Negative) Ur Leukocyte Esterase Negative (Negative) Urine RBC 0-2 (0-2) /HPF Urine WBC 0-5 (0-5) /HPF Ur Squamous Epith Cells 6-10 (0-2) /HPF Urine Bacteria Trace (None Seen) Hyaline Casts 0-2 (0-2) /LPF Urine Opiates Screen Not Detected (Not Detect) Ur Buprenorphine Scrn Not Detected (Not Detect) ng/mL Ur Oxycodone Screen Not Detected (Not Detect) ng/mL Urine Methadone Screen Not Detected (Not Detect) ng/mL Urine Fentanyl Screen Not Detected (Not Detect) Ur Barbiturates Screen Not Detected (Not Detect) Ur Phencyclidine Scrn Not Detected (Not Detect) Ur Amphetamines Screen Not Detected (Not Detect) U Benzodiazepines Scrn Not Detected (Not Detect) [place] 0.38 L (0.60-1.20) mmol/L Urine Cocaine Screen Not Detected (Not Detect) U Marijuana (THC) Screen POSITIVE H (Not Detect) Ethyl Alcohol < 10 mg/dL Discharge Plan Discharge Clinical Impression: Schizoaffective disorder, depressive type Patient Disposition: Still a Patient Prescriptions: No Action haloperidol 5 mg tablet 1 tab PO TID PRN (Reason: Agitation) diphenhydramine HCl [Banophen] 50 mg capsule 2 cap PO BEDTIME zolpidem 10 mg tablet 1 tab PO BEDTIME albuterol sulfate [ProAir HFA] 90 mcg/actuation HFA aerosol inhaler 2 puff inhalation Q6H PRN (Reason: Wheezing) omeprazole 20 mg Tablet,Delayed Release (Dr/Ec) 20 mg PO DAILY@0630 lithium carbonate 300 mg tablet 300 mg PO BID clonidine HCl 0.1 mg tablet 1 tab PO TID benztropine 0.5 mg tablet 1 tab PO BID haloperidol decanoate 100 mg/mL solution 75 mg IM Q4W Rx Instructions: NEXT DOSE: 07/09/23 duloxetine 60 mg capsule,delayed release(DR/EC) 1 cap PO DAILY fluticasone propion-salmeterol [Advair HFA] 230-21 mcg/actuation HFA aerosol inhaler 2 puff INHALATION BID prazosin 1 mg capsule 1 mg PO BEDTIME Protocol: Hold for SBP< HOLD for SBP < : 90 fluticasone propionate 50 mcg/actuation spray,suspension 2 spray intranasal DAILY trazodone 100 mg tablet 200 mg PO BEDTIME acetaminophen 325 mg Tablet 650 mg PO Q6H PRN (Reason: Headache/Pain Mild Scale (1-3)) Qty: 0 0RF erythromycin 5 mg/gram (0.5 %) ointment 0.5 inch ophthalmic-Left QID lorazepam 1 mg tablet 1 mg PO TID PRN (Reason: Anxiety) prazosin 5 mg capsule 15 mg PO BEDTIME cetirizine 10 mg tablet 10 mg PO DAILY Print Language: Gambian
[2024-03-10 23:52] LABS: MANUAL DIFF FLAG NO
[2024-03-11 00:07] LABS: Alanine Aminotransferase 9 U/L (0-31); Albumin Level 3.7 g/dL (3.5-5.0); Alkaline Phosphatase 53 U/L (39-117); Anion Gap 11 (12-20); Aspartate Amino Transferase 9 U/L (5-31); Bilirubin Total 0.2 mg/dL (0.0-1.0); Blood Urea Nitrogen 5 mg/dL (9-16); Calcium 9.3 mg/dL (8.4-10.2); Carbon Dioxide 25 mmol/L (22-29); Chloride 109 mmol/L (96-108); Creatinine Clr Calc Pharmacy 101.3; Estimated Glomerular Filt Rate > 60; Ethanol < 10 mg/dL; Glucose Random 101 mg/dL (60-115); Potassium 3.7 mmol/L (3.3-5.1); Sodium 141 mmol/L (135-145)
[2024-03-11 00:14] LABS: Lithium 0.38 mmol/L (0.60-1.20)
[2024-03-11 00:21] LABS: Basophils Percent Auto 0.4 % (0-2); Eosinophils Percent Auto 0.5 % (0-4); Hematocrit 32.8 % (37.0-47.0); Imm Gran Abs Auto 0.03 X10*3/uL (0.00-0.03); Imm Gran Pct Auto 0.4 % (0.0-0.4); Lymphocytes Absolute Auto 1.6 X10*3/uL (1.2-4.9); Lymphocytes Percent Auto 22.2 % (20-40); Mean Corpuscular HGB Conc 33.5 g/dl (31.0-35.0); Mean Corpuscular Hemoglobin 30.8 pg (27.0-33.0); Mean Corpuscular Volume 91.9 fL (80.0-98.0); Mean Platelet Volume 11.6 fL (9.4-12.3); Monocytes Absolute Auto 0.4 X10*3/uL (0.1-1.2); Monocytes Percent Auto 5.3 % (2-11); Neutrophils Absolute Auto 5.3 x10*3/uL (2.0-8.3); Neutrophils Percent Auto 71.2 % (45-73); Platelet Count 245 X10*3/uL (160-400); Red Blood Count 3.57 X10*6/uL (4.20-5.50); Red Cell Distribution Width 13.6 % (11.0-16.0); White Blood Count 7.4 X10*3/uL (4.8-10.8)
--- NOTE | 2024-03-11 05:51 | PC.NURSE ---
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
[2024-03-11 06:05] VITALS: RESP 18
--- NOTE | 2024-03-11 08:12 | PC.NURSE ---
Assumed care of patient at 0645, patient appears to be sleeping, respirations even and unlabored, no apparent distress noted. patient remains on 1:1 for safety. Continue plan of care for d/c today pending [facility]
[2024-03-11 13:22] VITALS: BP 108/88; PULSE 87; RESP 14; TEMP 36.6; O2SAT 99
== END 2024-03-11 13:24 | disposition home or self-care (01) ==
PROVIDERS: Emergency Provider Internal Medicine; PCP Pediatrics
DX: F25.1 Schizoaffective disorder, depressive type (principal); R45.851 Suicidal ideations; Z79.899 Other long term (current) drug therapy; F43.12 Post-traumatic stress disorder, chronic; F60.3 Borderline personality disorder; Z95.828 Presence of other vascular implants and grafts; J44.9 Chronic obstructive pulmonary disease, unspecified; F43.20 Adjustment disorder, unspecified; F41.9 Anxiety disorder, unspecified; K21.9 Gastro-esophageal reflux disease without esophagitis; Z87.891 Personal history of nicotine dependence
CPT/HCPCS: 36415; 80053; 80178; 80307; 81001; 81003; 85025; 96372; 99285; J1630; J2060; S9485

== ENCOUNTER 2024-03-22 19:14 | Emergency (ER) | payer OTHER, SELFPAY ==
[2024-03-22 19:29] VITALS: BP 104/60; BP 128/90; PULSE 86; PULSE 96; RESP 16; TEMP 36.9; O2SAT 99; BMI 35.6
--- NOTE | 2024-03-22 19:40 | ED_ITS ---
HPI - Psych General Chief Complaint: Psychiatric Symptoms Stated Complaint: crisis/si Time Seen by Provider: 03/22/24 19:16 Source: patient and EMS Mode of arrival: EMS Limitations: no limitations History of Present Illness HPI Narrative: Patient is a 39-year-old female who presents to the emergency department via EMS coming from a senior care endorsing vague suicidal ideations. Admits to having increased depression exacerbated by an upcoming court hearing for her sister, she has been assisting with legal arrangements citing her sister was murdered last year. She reported to nursing staff that she wants to hurt herself and does not want to live anymore, she would not say this directly to me. She did not offer any specific plan when speaking with nursing staff. She reports to me that she has been experiencing dizziness over the past month primarily with head movements and position change, intermittently gets a ringing sensation in her ear. She did not describes the dizziness as feeling as though she is going to pass out and her symptoms end up resolving after she sits down and relaxes for awhile. Occasionally she does experience nausea associated with it but denies vomiting. Endorses vague intermittent chest pain, states that she feels diffuse pain at this time. She however denies shortness of breath. Denies lower extremity pain swelling or redness. Related Data Home Medications ?Medication ?Instructions ?Recorded ?Confirmed albuterol sulfate 90 mcg/actuation 2 puff inhalation Q6H PRN Wheezing 08/14/22 03/22/24 aerosol inhaler (ProAir HFA) diphenhydramine HCl 50 mg capsule 2 cap PO BEDTIME 08/14/22 03/22/24 (Banophen) haloperidol 5 mg tablet 1 tab PO TID PRN Agitation 08/14/22 03/22/24 omeprazole 20 mg tablet,delayed 20 mg PO DAILY@0630 08/14/22 03/22/24 release zolpidem 10 mg tablet 1 tab PO BEDTIME 08/14/22 03/22/24 benztropine 0.5 mg tablet 1 tab PO BID 10/26/22 03/22/24 clonidine HCl 0.1 mg tablet 1 tab PO TID 10/26/22 03/22/24 duloxetine 60 mg capsule,delayed 1 cap PO DAILY 10/26/22 03/22/24 release haloperidol decanoate 100 mg/mL 75 mg IM Q4W 10/26/22 03/22/24 intramuscular solution lithium carbonate 300 mg tablet 300 mg PO BID 10/26/22 03/22/24 lorazepam 1 mg tablet 1 mg PO TID PRN Anxiety 03/25/23 03/22/24 prazosin 1 mg capsule 1 mg PO BEDTIME 06/17/23 03/22/24 trazodone 100 mg tablet 200 mg PO BEDTIME 06/17/23 03/22/24 cetirizine 10 mg tablet 10 mg PO DAILY 02/16/24 03/22/24 prazosin 5 mg capsule 15 mg PO BEDTIME 02/16/24 03/22/24 Previous Rx's ?Medication ?Instructions ?Recorded acetaminophen 325 mg tablet 650 mg (2 x 325 mg) PO Q6H PRN 02/25/24 Headache/Pain Mild Scale (1-3) #0 tabs Allergies Allergy/AdvReac Type Severity Reaction Status Date / Time carbamazepine [From TEGRETOL] AdvReac Mild Nausea and Verified 03/22/24 19:32 Vomiting topiramate [From Topamax] AdvReac Mild Nausea and Verified 03/22/24 19:32 Vomiting Review of Systems 2 Review of Systems: Yes all other systems are reviewed and are negative PMFSH Past Medical History Attestation statement: The following information was validated with the patient. Source: old records reviewed Medical History Port-A-Cath in place History of electroconvulsive therapy COVID-19 COVID-19 Sprain of left foot Chronic post-traumatic stress disorder (PTSD) COPD (chronic obstructive pulmonary disease) Increased BMI GERD (gastroesophageal reflux disease) Recurrent major depression-severe Acute post-traumatic stress disorder Injury, self-inflicted Suicidal ideation Self-harming behavior Intentional self-harm Suicidal ideation Borderline personality disorder Schizoaffective disorder Adjustment disorder Asthma Depression Anxiety PTSD (post-traumatic stress disorder) Family History Family History Mother Brain cancer Other No family history of cardiac disease Social History Social History Household Members: Other Household Members Other:: senior care staff and peers [facility] you presently have visiting nurse or other home services: No Unable to assess alcohol history related to: Unable to respond Alcohol intake: never Comment: 1:1 sitter Patient Tobacco Use Status: Former Tobacco user Tobacco use type: Cigarette Cigarette Packs Per Day: 0.5 Cigarettes Per Day: 4 Years Smoked: 20 Smoked in Last 30 Days: No e-Cigarette/Vaping Use: Never Used Second Hand Smoke Exposure: No Substance Use Type: Marijuana Advance Directives: No Advance Directives Information Provided: No Do you have a plan to hurt others: No Plan Patient : No service: No Sexual orientation: Straight/Heterosexual Physical Exam 2 Vital Signs: Vital Signs: Last Vital Signs Temp 97.8 F 03/23/24 00:05 Pulse 70 03/23/24 00:05 Resp 25 H 03/23/24 00:05 BP 104/61 03/23/24 00:05 Pulse Ox 98 03/23/24 00:05 O2 Del Method Room Air 03/23/24 00:05 BMI result Body Mass Index 35.6 Appearance: Alert.?Oriented to person, place and time. No acute distress.?Normal affect. Eyes: Pupils equal, round and reactive to light.? EOMI. No nystagmus. ENT: Pharynx normal.?? Neck: Normal inspection.? Neck supple.??Full range of motion. No nuchal rigidity. CVS: Heart sounds normal. Normal heart rate and rhythm.? Pulses normal.?? Respiratory: No respiratory distress.? Lung sounds clear diminished at the bases Abdomen: Soft and non-tender. Normoactive bowel sounds. No pulsatile mass.?? Skin: Skin warm and dry.? Normal skin color.? Extremities: No lower extremity edema.? No calf ttp? Neuro: Moves all extremities spontaneously. Sensation intact bilaterally. CN II- XII intact. No focal neuro deficits. Ambulates with normal steady gait. Course Reevaluation(s) Reevaluation #1: Orthostatic vital signs were negative. Noted patient has elevated troponin at 46.2, no history of prior elevations. On evaluation EKG indicates a normal sinus rhythm with ventricular rate of 70, QTC of 442, normal ILDA, nonspecific T- wave abnormality in the lateral leads, no ST elevation, no ST depression. Will obtain delta troponin at 23:00. CBC is without leukocytosis, normocytic anemia that does not meet transfusion criteria, no thrombocytopenia. No electrolyte derangement. No JULIANNE. LFTs within normal range. TSH within normal range. [place] level is low although she endorses compliance. Salicylates and acetaminophen negative. Urinalysis without evidence of infection or microscopic hematuria. Time: 21:41 Reevaluation #2: Delta troponin is flat. Has been on telemetry without abnormal findings. She denies dizziness at this time. I discussed this case with my attending, Dr. Chairez, advises a 3rd troponin which will be drawn at 02:00. Time: 23:50 Reevaluation #3: Patient signed out to ED attending Dr. Chairez pending repeat troponin Additional Reevaluation(s): troponins continue to trend down, will dc back to senior care Medications Administered Generic Name Dose Route Start Last Admin Trade Name Freq PRN Reason Stop Dose Admin Benztropine Mesylate 0.5 mg 03/23/24 00:45 03/23/24 01:20 Benztropine Mesylate 0.5 Mg Tablet PO 0.5 mg BID SULEIMAN Administration Clonidine HCl 0.1 mg 03/23/24 00:45 03/23/24 01:21 Clonidine Hcl 0.1 Mg Tablet PO 0.1 mg TID SULEIMAN Administration Protocol Diphenhydramine HCl 100 mg 03/23/24 00:45 03/23/24 01:19 Diphenhydramine Hcl 25 Mg Capsule PO 100 mg BEDTIME SULEIMAN Administration [place] Carbonate 300 mg 03/23/24 00:45 03/23/24 01:19 [place] Carbonate 300 Mg Capsule PO 300 mg BID SULEIMAN Administration Prazosin HCl 1 mg 03/23/24 00:45 03/23/24 01:20 Prazosin Hcl 1 Mg Capsule PO Not Given BEDTIME SULEIMAN Protocol Prazosin HCl 15 mg 03/23/24 00:45 03/23/24 01:20 Prazosin Hcl 5 Mg Capsule PO Not Given BEDTIME SULEIMAN Protocol Trazodone HCl 200 mg 03/23/24 00:45 03/23/24 01:19 Trazodone Hcl 100 Mg Tablet PO 200 mg BEDTIME SULEIMAN Administration Zolpidem Tartrate 10 mg 03/23/24 00:45 03/23/24 01:19 Zolpidem Tartrate 5 Mg Tablet PO 10 mg BEDTIME SULEIMAN Administration Discontinued Medications Generic Name Dose Route Start Last Admin Trade Name Freq PRN Reason Stop Dose Admin Lorazepam 1 mg 03/22/24 21:29 03/22/24 21:35 Lorazepam 1 Mg Tablet PO 03/22/24 21:30 1 mg ONCE ONE Administration Medical Decision Making Medical Decision Making [facility] Narrative: Patient is a 39-year-old female with past medical history of asthma/COPD, adjustment disorder, anxiety, schizoaffective disorder, PTSD, borderline personality disorder, GERD who arrives for evaluation of vague suicidal ideations with increasing depression in addition to dizziness/lightheadedness without syncope as per HPI. She is calm and cooperative at the time of my evaluation. No respiratory distress. No tachycardia fever. Does not have signs of systemic toxicity. She has no focal neurological deficits, no spontaneous or gaze evoked nystagmus, no ataxia diplopia dysarthria dysphagia or dysmetria. Will obtain CBC to evaluate for leukocytosis/ anemia, CMP and lipase to evaluate for abnormal electrolytes /abnormal renal function/ abnormal hepatic/biliary function, EKG and troponin to evaluate for ischemia/ACS, Toxicology and Urinalysis. History is concerning for BPPV as she does endorse it is triggered with certain head movements endorses it to have a sudden onset when severe intensity and it is episodic in nature rather than constant. Suspect this is less likely acute intracranial pathology. Differential Diagnosis Differential Diagnoses: The differential diagnosis associated with the presentation includes (Depression, suicidal ideation, PTSD, arrhythmia, anemia, electrolyte derangement, dehydration, orthostatic hypotension, vertigo) Admission/Observation Consideration of admission/observation: Escalation of care including admission/observation considered Patient is being observed in the Emergency Department for depression and anxiety. Observation time was started at 23:55 on 03/22/2024.?The patient is currently stable and non-toxic appearing. Observation is being initiated in the Emergency Department to allow time to help differentiate if the patient's depression and anxiety is due to Substance Induced Mood Disorder and Anxiety versus Major Depressive Disorder, Bipolar Mar, Bipolar Depression, and Schizophrenia. The patient will receive frequent psychiatric assessments from the provider as well as from nursing staff. The patient will also be monitored for the need of PRN agitation medications such as Haldol, Ativan, and Benadryl. Consult Healthcare Provider Management of the patient was discussed with: Behavioral Health Provider Lab Data [facility] Lab Attestation statement: I reviewed the patient's lab results. (See course narrative) 03/22/24 20:06 03/22/24 20:48 Labs: Lab Results 03/22/24 03/22/24 03/22/24 Range/Units 20:06 20:08 20:48 WBC 8.9 (4.8-10.8) X10*3/uL RBC 3.88 L (4.20-5.50) X10*6/uL Hgb 11.9 L (12.0-16.0) g/dl Hct 35.4 L (37.0-47.0) % MCV 91.2 (80.0-98.0) fL MCH 30.7 (27.0-33.0) pg MCHC 33.6 (31.0-35.0) g/dl RDW 13.4 (11.0-16.0) % Plt Count 237 (160-400) X10*3/uL MPV 11.8 (9.4-12.3) fL Immature Gran % (Auto) 0.3 (0.0-0.4) % Neut % (Auto) 75.4 H (45-73) % Lymph % (Auto) 16.9 L (20-40) % [place] % (Auto) 5.8 (2-11) % Eos % (Auto) 1.2 (0-4) % Baso % (Auto) 0.4 (0-2) % Lymph # (Auto) 1.5 (1.2-4.9) X10*3/uL [place] # (Auto) 0.5 (0.1-1.2) X10*3/uL Eos # (Auto) 0.1 (0.0-0.4) X10*3/uL Baso # (Auto) 0.0 (0.0-0.2) X10*3/uL Abs Immat Gran (auto) 0.03 (0.00-0.03) X10*3/uL Absolute Neuts (auto) 6.7 (2.0-8.3) x10*3/uL Absolute Nucleated RBC 0.000 (0.0-0.012) X10*3/uL Nucleated RBC % (auto) 0.0 (0.0-0.2) /100WBC PT 12.2 (11.1-13.3) SEC INR 1.0 (0.9-1.1) Sodium 139 (135-145) mmol/L Potassium 3.8 (3.3-5.1) mmol/L Chloride 106 (96-108) mmol/L Carbon Dioxide 27 (22-29) mmol/L Anion Gap 10 L (12-20) BUN 4 L (9-16) mg/dL Creatinine 0.78 (0.5-1.4) mg/dL Estim Creat Clear Calc 104.8 Estimated GFR > 60 Random Glucose 93 (60-115) mg/dL Calcium 9.4 (8.4-10.2) mg/dL Magnesium 1.8 (1.6-2.6) mg/dL Total Bilirubin 0.3 (0.0-1.0) mg/dL AST 10 (5-31) U/L ALT 6 (0-31) U/L Alkaline Phosphatase 57 (39-117) U/L Troponin I High Sens 46.2 H D (<3.5-17.0) ng/L Total Protein 6.6 (6.5-8.0) g/dL Albumin 4.0 (3.5-5.0) g/dL TSH 2.98 (0.32-4.0) uIU/mL Beta HCG, Quant < 2 mIU/mL Urine Color Yellow Urine Appearance Clear Urine pH 6.5 (5.0-9.0) Ur Specific [place] <= 1.005 (1.005-1.025) Urine Protein Negative (Neg-Trace) mg/dL Urine Glucose (UA) Negative (Negative) mg/dL Urine Ketones Negative (Negative) mg/dL Urine Blood Negative (Negative) Urine Nitrite Negative (Negative) Ur Leukocyte Esterase Negative (Negative) Salicylates < 5.0 L (15-30) mg/dL Urine Opiates Screen Not Detected (Not Detect) Ur Buprenorphine Scrn Not Detected (Not Detect) ng/mL Ur Oxycodone Screen Not Detected (Not Detect) ng/mL Urine Methadone Screen Not Detected (Not Detect) ng/mL Urine Fentanyl Screen Not Detected (Not Detect) Acetaminophen < 3 (<30) mcg/mL Ur Barbiturates Screen Not Detected (Not Detect) Ur Phencyclidine Scrn Not Detected (Not Detect) Ur Amphetamines Screen Not Detected (Not Detect) U Benzodiazepines Scrn Not Detected (Not Detect) [place] 0.49 L (0.60-1.20) mmol/L Urine Cocaine Screen Not Detected (Not Detect) U Marijuana (THC) Screen POSITIVE H (Not Detect) Ethyl Alcohol < 10 mg/dL 03/22/24 03/22/24 03/23/24 Range/Units 23:13 Unknown 02:16 WBC (4.8-10.8) X10*3/uL RBC (4.20-5.50) X10*6/uL Hgb (12.0-16.0) g/dl Hct (37.0-47.0) % MCV (80.0-98.0) fL MCH (27.0-33.0) pg MCHC (31.0-35.0) g/dl RDW (11.0-16.0) % Plt Count (160-400) X10*3/uL MPV (9.4-12.3) fL Immature Gran % (Auto) (0.0-0.4) % Neut % (Auto) (45-73) % Lymph % (Auto) (20-40) % [place] % (Auto) (2-11) % Eos % (Auto) (0-4) % Baso % (Auto) (0-2) % Lymph # (Auto) (1.2-4.9) X10*3/uL [place] # (Auto) (0.1-1.2) X10*3/uL Eos # (Auto) (0.0-0.4) X10*3/uL Baso # (Auto) (0.0-0.2) X10*3/uL Abs Immat Gran (auto) (0.00-0.03) X10*3/uL Absolute Neuts (auto) (2.0-8.3) x10*3/uL Absolute Nucleated RBC (0.0-0.012) X10*3/uL Nucleated RBC % (auto) (0.0-0.2) /100WBC PT (11.1-13.3) SEC INR (0.9-1.1) Sodium (135-145) mmol/L Potassium (3.3-5.1) mmol/L Chloride (96-108) mmol/L Carbon Dioxide (22-29) mmol/L Anion Gap (12-20) BUN (9-16) mg/dL Creatinine (0.5-1.4) mg/dL Estim Creat Clear Calc Estimated GFR Random Glucose (60-115) mg/dL Calcium (8.4-10.2) mg/dL Magnesium (1.6-2.6) mg/dL Total Bilirubin (0.0-1.0) mg/dL AST (5-31) U/L ALT (0-31) U/L Alkaline Phosphatase (39-117) U/L Troponin I High Sens 37.3 H 29.2 H (<3.5-17.0) ng/L Total Protein (6.5-8.0) g/dL Albumin (3.5-5.0) g/dL TSH Cancelled (0.32-4.0) uIU/mL Beta HCG, Quant Cancelled mIU/mL Urine Color Urine Appearance Urine pH (5.0-9.0) Ur Specific [place] (1.005-1.025) Urine Protein (Neg-Trace) mg/dL Urine Glucose (UA) (Negative) mg/dL Urine Ketones (Negative) mg/dL Urine Blood (Negative) Urine Nitrite (Negative) Ur Leukocyte Esterase (Negative) Salicylates (15-30) mg/dL Urine Opiates Screen (Not Detect) Ur Buprenorphine Scrn (Not Detect) ng/mL Ur Oxycodone Screen (Not Detect) ng/mL Urine Methadone Screen (Not Detect) ng/mL Urine Fentanyl Screen (Not Detect) Acetaminophen (<30) mcg/mL Ur Barbiturates Screen (Not Detect) Ur Phencyclidine Scrn (Not Detect) Ur Amphetamines Screen (Not Detect) U Benzodiazepines Scrn (Not Detect) [place] (0.60-1.20) mmol/L Urine Cocaine Screen (Not Detect) U Marijuana (THC) Screen (Not Detect) Ethyl Alcohol mg/dL Independent Historian Clinical information obtained from an independent historian. History obtained from or confirmed by: EMS External Record Review External record reviewed: Outpatient record Discharge Plan Discharge Clinical Impression: Suicidal ideation, Dizziness Patient Disposition: Still a Patient Prescriptions: No Action haloperidol 5 mg tablet 1 tab PO TID PRN (Reason: Agitation) diphenhydramine HCl [Banophen] 50 mg capsule 2 cap PO BEDTIME zolpidem 10 mg tablet 1 tab PO BEDTIME albuterol sulfate [ProAir HFA] 90 mcg/actuation HFA aerosol inhaler 2 puff inhalation Q6H PRN (Reason: Wheezing) omeprazole 20 mg Tablet,Delayed Release (Dr/Ec) 20 mg PO DAILY@0630 lithium carbonate 300 mg tablet 300 mg PO BID clonidine HCl 0.1 mg tablet 1 tab PO TID benztropine 0.5 mg tablet 1 tab PO BID haloperidol decanoate 100 mg/mL solution 75 mg IM Q4W Rx Instructions: NEXT DOSE: 07/09/23 duloxetine 60 mg capsule,delayed release(DR/EC) 1 cap PO DAILY prazosin 1 mg capsule 1 mg PO BEDTIME Protocol: Hold for SBP< HOLD for SBP < : 90 trazodone 100 mg tablet 200 mg PO BEDTIME acetaminophen 325 mg Tablet 650 mg PO Q6H PRN (Reason: Headache/Pain Mild Scale (1-3)) Qty: 0 0RF lorazepam 1 mg tablet 1 mg PO TID PRN (Reason: Anxiety) prazosin 5 mg capsule 15 mg PO BEDTIME cetirizine 10 mg tablet 10 mg PO DAILY Interventions: Osage-Suicide Risk Severity Scale Last Done: 03/22/24 20:14 Print Language: Hungarian
--- NOTE | 2024-03-22 19:43 | PC.NURSE ---
med rec complete by list from [facility] proivided
--- NOTE | 2024-03-22 19:48 | ECG_ITS ---
Test Reason : DIZZINESS Blood Pressure : / mmHG Vent. Rate : 070 BPM Atrial Rate : 070 BPM P-R Int : 150 ms QRS Dur : 070 ms QT Int : 410 ms P-R-T Axes : 059 056 040 degrees QTc Int : 442 ms Normal sinus rhythm Nonspecific T wave abnormality Abnormal ECG When compared with ECG of 29-MAR-2023 08:55, Nonspecific T wave abnormality now evident in Lateral leads Referred By: Sofía Ortega Electronically Signed By:DONAL HAAS MD
[2024-03-22 20:13] LABS: MANUAL DIFF FLAG NO
[2024-03-22 20:14] VITALS: BP 92/58; PULSE 72
[2024-03-22 20:16] VITALS: BP 104/48; BP 90/57; PULSE 79; PULSE 83
[2024-03-22 20:16] LABS: Basophils Percent Auto 0.4 % (0-2); Eosinophils Absolute Auto 0.1 X10*3/uL (0.0-0.4); Eosinophils Percent Auto 1.2 % (0-4); Hematocrit 35.4 % (37.0-47.0); Hemoglobin 11.9 g/dl (12.0-16.0); Imm Gran Abs Auto 0.03 X10*3/uL (0.00-0.03); Imm Gran Pct Auto 0.3 % (0.0-0.4); Lymphocytes Absolute Auto 1.5 X10*3/uL (1.2-4.9); Lymphocytes Percent Auto 16.9 % (20-40); Mean Corpuscular HGB Conc 33.6 g/dl (31.0-35.0); Mean Corpuscular Hemoglobin 30.7 pg (27.0-33.0); Mean Corpuscular Volume 91.2 fL (80.0-98.0); Mean Platelet Volume 11.8 fL (9.4-12.3); Monocytes Absolute Auto 0.5 X10*3/uL (0.1-1.2); Monocytes Percent Auto 5.8 % (2-11); Neutrophils Absolute Auto 6.7 x10*3/uL (2.0-8.3); Neutrophils Percent Auto 75.4 % (45-73); Platelet Count 237 X10*3/uL (160-400); Red Blood Count 3.88 X10*6/uL (4.20-5.50); Red Cell Distribution Width 13.4 % (11.0-16.0); White Blood Count 8.9 X10*3/uL (4.8-10.8)
[2024-03-22 20:21] LABS: Appearance Urine Clear; Color Urine Yellow; Glucose Urine UA Negative (Negative); Leukocyte Esterase Urine Negative (Negative); Nitrite Urine Negative (Negative); PH 6.5 (5.0-9.0); Specific Gravity - Urine <= 1.005 (1.005-1.025); Urine Blood Negative (Negative); Urine Ketones Negative (Negative); Urine Protein Negative (Neg-Trace)
[2024-03-22 20:24] LABS: Lithium 0.49 mmol/L (0.60-1.20)
[2024-03-22 20:26] LABS: Amphetamine Screen Urine Not Detected (Not Detect); Barbiturates, Urine Not Detected (Not Detect); Benzodiazepines Screen Urine Not Detected (Not Detect); Buprenorphine Scr Not Detected (Not Detect); Cannabinoid Screen Urine POSITIVE (Not Detect); Cocaine Screen Urine Not Detected (Not Detect); Fentanyl, urine Not Detected (Not Detect); Methadone Screen, Urine Not Detected (Not Detect); Opiate Screen Urine Not Detected (Not Detect); Oxycodone Screen Urine Not Detected (Not Detect); Phencyclidine Screen Urine Not Detected (Not Detect)
[2024-03-22 21:03] LABS: Prothrombin Time 12.2 SEC (11.1-13.3)
[2024-03-22 21:11] LABS: Acetaminophen LAB < 3 mcg/mL (<30); Alanine Aminotransferase 6 U/L (0-31); Alkaline Phosphatase 57 U/L (39-117); Anion Gap 10 (12-20); Aspartate Amino Transferase 10 U/L (5-31); Bilirubin Total 0.3 mg/dL (0.0-1.0); Blood Urea Nitrogen 4 mg/dL (9-16); Calcium 9.4 mg/dL (8.4-10.2); Carbon Dioxide 27 mmol/L (22-29); Chloride 106 mmol/L (96-108); Creatinine Clr Calc Pharmacy 104.8; Estimated Glomerular Filt Rate > 60; Ethanol < 10 mg/dL; Glucose Random 93 mg/dL (60-115); Magnesium 1.8 mg/dL (1.6-2.6); Potassium 3.8 mmol/L (3.3-5.1); Salicylate < 5.0 mg/dL (15-30); Sodium 139 mmol/L (135-145); Total Protein 6.6 g/dL (6.5-8.0)
[2024-03-22 21:26] LABS: Troponin-I High Sensitivity 46.2 ng/L (<3.5-17.0)
[2024-03-22] MEDS: LORazepam 1 MG TABLET PO (21:35)
[2024-03-22 21:44] LABS: HCG Quantitative < 2 mIU/mL; TSH reflex Free T4 2.98 uIU/mL (0.32-4.0)
[2024-03-22 22:02] VITALS: BP 107/68; PULSE 66; RESP 15; TEMP 36.9; O2SAT 97
[2024-03-22 23:37] LABS: Troponin-I High Sensitivity 37.3 ng/L (<3.5-17.0)
[2024-03-23 00:05] VITALS: BP 104/61; PULSE 70; RESP 25; TEMP 36.6; O2SAT 98
[2024-03-23] MEDS: diphenhydrAMINE HCL 25 MG CAPSULE 100 MG PO (01:19)
[2024-03-23] MEDS: Lithium Carbonate 300 MG CAPSULE PO (01:19)
[2024-03-23] MEDS: Zolpidem Tartrate 5 MG TABLET 10 MG PO (01:19)
[2024-03-23] MEDS: traZODone HCL 100 MG TABLET 200 MG PO (01:19)
[2024-03-23] MEDS: Benztropine Mesylate 0.5 MG TABLET PO (01:20)
[2024-03-23] MEDS: cloNIDine HCL 0.1 MG TABLET PO (01:21)
[2024-03-23 02:44] LABS: Troponin-I High Sensitivity 29.2 ng/L (<3.5-17.0)
[2024-03-23 03:23] VITALS: RESP 18
--- NOTE | 2024-03-23 03:26 | PC.NURSE ---
attempt to call [facility] with no success for nurse to nurse report
--- NOTE | 2024-03-23 04:58 | PC.NURSE ---
nurse to nurse given to BLAKE
[2024-03-23 05:08] VITALS: BP 104/61; PULSE 70; RESP 18; TEMP 36.6; O2SAT 98
== END 2024-03-23 05:53 | disposition home or self-care (01) ==
PROVIDERS: Nurse Practitioner Family; Student in an Organized Health Care Education/Training Program; Emergency Provider Emergency Medicine; PCP Nurse Practitioner Family
DX: F33.1 Major depressive disorder, recurrent, moderate (principal); R45.851 Suicidal ideations; R42 Dizziness and giddiness; R94.31 Abnormal electrocardiogram [ECG] [EKG]; Z79.899 Other long term (current) drug therapy; Z87.891 Personal history of nicotine dependence
CPT/HCPCS: 36415; 80053; 80143; 80178; 80179; 80307; 81003; 83735; 84443; 84484; 84702; 85025; 85610; 93005; 99285; S9485

== ENCOUNTER → 2024-03-22 19:48 | Outpatient (BNV) | payer OTHER, SELFPAY | PROVIDERS: Emergency Provider Emergency Medicine; PCP Nurse Practitioner Family; Visit Provider Internal Medicine Cardiovascular Disease | DX: R94.31 Abnormal electrocardiogram [ECG] [EKG] (principal) | CPT/HCPCS: 93010 ==

== ENCOUNTER 2024-03-27 05:42 | Day surgery (SDC) | payer OTHER, SELFPAY ==
[2024-03-27 06:16] VITALS: BMI 42.4
[2024-03-27 06:17] VITALS: BP 128/68; RESP 16; TEMP 36.2; O2SAT 96
--- NOTE | 2024-03-27 06:45 | HO.ANESPROP2 ---
[facility] Active Problems Active Problems: All Active Problems Port-A-Cath in place (Acute) Intentional self-harm (Acute) COPD (chronic obstructive pulmonary disease) (Acute) Asthma (Acute) Adjustment disorder (Acute) Anxiety (Acute) Injury of ligament of right knee (Acute) Sprain of anterior cruciate ligament of right knee (Acute) Hernia (Chronic) Schizoaffective disorder, depressive type (Chronic) Chronic post-traumatic stress disorder (PTSD) (Chronic) Increased BMI (Acute) GERD (gastroesophageal reflux disease) (Acute) Borderline personality disorder (Chronic) Past Medical History Medical History Port-A-Cath in place History of electroconvulsive therapy COVID-19 COVID-19 Sprain of left foot Chronic post-traumatic stress disorder (PTSD) COPD (chronic obstructive pulmonary disease) Increased BMI GERD (gastroesophageal reflux disease) Recurrent major depression-severe Acute post-traumatic stress disorder Injury, self-inflicted Suicidal ideation Self-harming behavior Intentional self-harm Suicidal ideation Borderline personality disorder Schizoaffective disorder Adjustment disorder Asthma Depression Anxiety PTSD (post-traumatic stress disorder) Family History Family History Mother Brain cancer Other No family history of cardiac disease Family history of problems with anesthesia: No Surgical History History of Problems with Anesthesia: No Social History Social History Household Members: Other Household Members Other:: assisted staff and peers Housing: Other Housing Other:: [facility] Do you presently have visiting nurse or other home services: No Unable to assess alcohol history related to: Unable to respond Alcohol intake: never Comment: 1:1 sitter Patient Tobacco Use Status: Former Tobacco user Tobacco use type: Cigarette Cigarette Packs Per Day: 0.5 Cigarettes Per Day: 4 Years Smoked: 20 e-Cigarette/Vaping Use: Never Used Second Hand Smoke Exposure: No Substance Use Type: Marijuana Advance Directives: No Advance Directives Information Provided: Yes service: No Sexual orientation: Straight/Heterosexual Meds Allergies Allergy/AdvReac Type Severity Reaction Status Date / Time carbamazepine [From TEGRETOL] AdvReac Mild Nausea and Verified 03/22/24 19:32 Vomiting topiramate [From Topamax] AdvReac Mild Nausea and Verified 03/22/24 19:32 Vomiting Home Medications ?Medication ?Instructions ?Recorded ?Confirmed ?Last Taken ?Type albuterol sulfate 90 mcg/actuation 2 puff inhalation Q6H PRN Wheezing 08/14/22 03/22/24 03/13/23 History aerosol inhaler (ProAir HFA) diphenhydramine HCl 50 mg capsule 2 cap PO BEDTIME 08/14/22 03/22/24 02/15/24 20:00 History (Banophen) haloperidol 5 mg tablet 1 tab PO TID PRN Agitation 08/14/22 03/22/24 03/13/23 History omeprazole 20 mg tablet,delayed 20 mg PO DAILY@0630 08/14/22 03/22/24 02/15/24 06:30 History release zolpidem 10 mg tablet 1 tab PO BEDTIME 08/14/22 03/22/24 02/15/24 20:00 History benztropine 0.5 mg tablet 1 tab PO BID 10/26/22 03/22/24 02/15/24 17:00 History clonidine HCl 0.1 mg tablet 1 tab PO TID 10/26/22 03/22/24 02/15/24 20:00 History duloxetine 60 mg capsule,delayed 1 cap PO DAILY 10/26/22 03/22/24 02/15/24 07:00 History release haloperidol decanoate 100 mg/mL 75 mg IM Q4W 10/26/22 03/22/24 08/25/23 History intramuscular solution lithium carbonate 300 mg tablet 300 mg PO BID 10/26/22 03/22/24 02/15/24 20:00 History lorazepam 1 mg tablet 1 mg PO TID PRN Anxiety 03/25/23 03/22/24 Unknown History prazosin 1 mg capsule 1 mg PO BEDTIME 06/17/23 03/22/24 02/15/24 20:00 History trazodone 100 mg tablet 200 mg PO BEDTIME 06/17/23 03/22/24 02/15/24 20:00 History cetirizine 10 mg tablet 10 mg PO DAILY 02/16/24 03/22/24 02/15/24 08:00 History prazosin 5 mg capsule 15 mg PO BEDTIME 02/16/24 03/22/24 02/15/24 20:00 History Exam Height,Weight and Vital Signs: Height 4 ft 11 in Weight 95.254 kg Last Vital Signs Temp 97.2 F 03/27/24 06:17 Resp 16 03/27/24 06:17 BP 128/68 03/27/24 06:17 Pulse Ox 96 03/27/24 06:17 O2 Del Method Room Air 03/27/24 06:17 Airway Mallampati Class: II (miss a couple teeth, nothing loose) TM Dist: >3cm Neck ROM: Full Heart: rrr Lungs: cta Assessment and Plan Assessment Anesthesia Assessment: Anesthesia Plan Discussed and Chart Reviewed Final Anesthetic Review Family History of Problems with Anesthesia: No History of Problems with Anesthesia: No NPO: Yes ASA Class: III Final Preanesthetic Review: No Changes in Pt Med Stat, Meds/Allgs Chart Reviewed and Consent Obtained/Reviewed Patient Risk: Intermediate Procedure Risk: Intermediate Anesthetic Plan Anesthetic Plan: GA Disposition: Standard PACU
[2024-03-27] MEDS: Lactated Ringers 1,000 ML 50 ML IVCONT (06:51)
--- NOTE | 2024-03-27 06:58 | MHC.SHP ---
Pre-Procedural Eval Section A - 24 Hr Update-Section A only Date of Service: 03/27/24 The patient is an INPATIENT: No Changes since office visit: Yes Cold of Flu in the past 2 weeks, Yes New Medical Problems, Yes Changes in Medication and Yes Patient answered all questions The patient has been examined within 24 hours of the surgical procedure. The History & Physical has been completed within 30 days and I have reviewed it.: No Section B - Complete if H&P > 30 days Chief Complaint: depression Allergies: Allergies Allergy/AdvReac Type Severity Reaction Status Date / Time carbamazepine [From TEGRETOL] AdvReac Mild Nausea and Verified 03/22/24 19:32 Vomiting topiramate [From Topamax] AdvReac Mild Nausea and Verified 03/22/24 19:32 Vomiting Plan I have reviewed the history and physical and performed a pertinent physical examination on my patient. No changes have occurred unless specified. Time Spent With Patient Time: Total time managing care of this patient today ____ minutes.
--- NOTE | 2024-03-27 07:12 | HO.ECTPROC ---
ECT Procedure Note Diagnosis/Treatment Date of Service: 03/27/24 Diagnosis: Schizoaffective Disorder Previous ECT Date: 03/08/24 Treatment: Maintenance Interval Clinical Notes: The patient reported euthymia, she feels much better by haiving ECT every 2-3 weeks. No side effects with previous ECT, no changes on her medications. ECT done as usual, no complications, woke up well. Time: Total time managing care of this patient today ____ minutes. ECT Settings Device: THYMATRON DGx Electrode Placement: Bitemporal Program/Pulse Width: 0.50 Energy Percent: 100 Seizure Duration By EEG (in seconds): 50 By Motor Observation (in seconds): 16 Medications Administration General Anesthetic: Etomidate (16) Muscle Relaxant: Succinylcholine (100) Ancillary Medications Analgesics: Torodol - Pre ECT Anti-emetics: Zofran - Pre ECT Airway Management Airway Management: Bag Mask Ventilation Treatment Recommendations No Changes Recommended: No change Pt Tolerated Procedure w/o Issue: Yes
[2024-03-27 07:23] VITALS: BP 117/70; PULSE 106; RESP 18; TEMP 36.2; O2SAT 95
[2024-03-27 07:28] VITALS: BP 116/65; PULSE 104; RESP 18; O2SAT 97
[2024-03-27 07:33] VITALS: BP 127/85; PULSE 99; RESP 18; O2SAT 97
[2024-03-27 07:38] VITALS: BP 119/80; PULSE 98; RESP 18; O2SAT 96
[2024-03-27 07:50] VITALS: BP 120/88; PULSE 91; RESP 18; TEMP 36.1; O2SAT 97
== END 2024-03-27 09:13 | disposition home or self-care (01) ==
PROVIDERS: PCP Nurse Practitioner Family; Visit Provider Psychiatry & Neurology Psychiatry
PROC: (CPT 90870; principal; 2024-03-27 07:00)
DX: F25.9 Schizoaffective disorder, unspecified (principal); F43.12 Post-traumatic stress disorder, chronic; F60.3 Borderline personality disorder; Z79.51 Long term (current) use of inhaled steroids; Z79.899 Other long term (current) drug therapy
CPT/HCPCS: 90870; J0330; J1642; J2405

== ENCOUNTER → 2024-03-27 05:42 | Outpatient (BNV) | payer OTHER, SELFPAY | PROVIDERS: PCP Nurse Practitioner Family; Visit Provider Psychiatry & Neurology Psychiatry | DX: F33.3 Major depressive disorder, recurrent, severe with psychotic symptoms (principal) | CPT/HCPCS: 90870 ==

== ENCOUNTER 2024-03-28 20:16 | Inpatient (IN) | payer OTHER, SELFPAY ==
[2024-03-28 20:28] VITALS: BP 128/80; BP 136/94; PULSE 102; PULSE 94; RESP 20; TEMP 37.3; O2SAT 97; O2SAT 99; BMI 39.1
[2024-03-28 21:07] LABS: Appearance Urine Clear; Color Urine Yellow; Glucose Urine UA Negative (Negative); Leukocyte Esterase Urine Negative (Negative); Nitrite Urine Negative (Negative); Specific Gravity - Urine <= 1.005 (1.005-1.025); Urine Blood Negative (Negative); Urine Ketones Negative (Negative); Urine Protein Negative (Neg-Trace)
[2024-03-28 21:25] LABS: Amphetamine Screen Urine Not Detected (Not Detect); Barbiturates, Urine Not Detected (Not Detect); Benzodiazepines Screen Urine Not Detected (Not Detect); Buprenorphine Scr Not Detected (Not Detect); Cannabinoid Screen Urine POSITIVE (Not Detect); Cocaine Screen Urine Not Detected (Not Detect); Fentanyl, urine Not Detected (Not Detect); Methadone Screen, Urine Not Detected (Not Detect); Opiate Screen Urine Not Detected (Not Detect); Oxycodone Screen Urine Not Detected (Not Detect); Phencyclidine Screen Urine Not Detected (Not Detect)
[2024-03-28 21:36] LABS: Alanine Aminotransferase 8 U/L (0-31); Albumin Level 4.4 g/dL (3.5-5.0); Alkaline Phosphatase 60 U/L (39-117); Anion Gap 12 (12-20); Aspartate Amino Transferase 13 U/L (5-31); Bilirubin Total 0.3 mg/dL (0.0-1.0); Blood Urea Nitrogen 4 mg/dL (9-16); Calcium 9.8 mg/dL (8.4-10.2); Carbon Dioxide 23 mmol/L (22-29); Chloride 105 mmol/L (96-108); Creatinine Clr Calc Pharmacy 94.5; Estimated Glomerular Filt Rate > 60; Ethanol < 10 mg/dL; Glucose Random 100 mg/dL (60-115); Potassium 4.1 mmol/L (3.3-5.1); Sodium 136 mmol/L (135-145); Total Protein 7.4 g/dL (6.5-8.0)
[2024-03-28 21:52] LABS: Basophils Percent Auto 0.3 % (0-2); Eosinophils Percent Auto 0.3 % (0-4); Hematocrit 35.1 % (37.0-47.0); Hemoglobin 11.7 g/dl (12.0-16.0); Imm Gran Abs Auto 0.02 X10*3/uL (0.00-0.03); Imm Gran Pct Auto 0.3 % (0.0-0.4); Lymphocytes Absolute Auto 1.5 X10*3/uL (1.2-4.9); Lymphocytes Percent Auto 20.7 % (20-40); MANUAL DIFF FLAG SCAN; Mean Corpuscular HGB Conc 33.3 g/dl (31.0-35.0); Mean Corpuscular Hemoglobin 30.5 pg (27.0-33.0); Mean Corpuscular Volume 91.6 fL (80.0-98.0); Mean Platelet Volume 11.5 fL (9.4-12.3); Monocytes Absolute Auto 0.4 X10*3/uL (0.1-1.2); Monocytes Percent Auto 5.2 % (2-11); Neutrophils Absolute Auto 5.1 x10*3/uL (2.0-8.3); Neutrophils Percent Auto 73.2 % (45-73); PLT CLUMP 1; Red Blood Count 3.83 X10*6/uL (4.20-5.50); Red Cell Distribution Width 13.4 % (11.0-16.0); SCAN SMEAR FLAG 1
[2024-03-28 21:54] LABS: Lithium 0.54 mmol/L (0.60-1.20)
[2024-03-28 22:12] LABS: Platelet Count 202 X10*3/uL (160-400)
[2024-03-28 22:13] LABS: SLIDE REVIEW VERIFIED
--- NOTE | 2024-03-28 22:13 | ED_ITS ---
HPI - Psych General Chief Complaint: Psychiatric Symptoms Stated Complaint: sect. 12,SI, auditory hallucinations Time Seen by Provider: 03/28/24 20:31 Source: patient and EMS Mode of arrival: EMS Limitations: no limitations History of Present Illness ED Provider: Dr. Rosi Barcenas HPI Narrative: Patient comes to the emergency room on a section 12 for auditory hallucinations. Patient states it has been getting worse over the last 3 days, states she is compliant with the medications. Patient states that the voices are telling her to jump in front of traffic. Patient states that she has been triggered by the upcoming trial for her sister's court case. Related Data Home Medications ?Medication ?Instructions ?Recorded ?Confirmed albuterol sulfate 90 mcg/actuation 2 puff inhalation Q6H PRN Wheezing 08/14/22 03/28/24 aerosol inhaler (ProAir HFA) diphenhydramine HCl 50 mg capsule 2 cap PO BEDTIME 08/14/22 03/28/24 (Banophen) haloperidol 5 mg tablet 1 tab PO TID PRN Agitation 08/14/22 03/28/24 omeprazole 20 mg tablet,delayed 20 mg PO DAILY@0630 08/14/22 03/28/24 release zolpidem 10 mg tablet 1 tab PO BEDTIME 08/14/22 03/28/24 benztropine 0.5 mg tablet 1 tab PO BID 10/26/22 03/28/24 clonidine HCl 0.1 mg tablet 1 tab PO TID 10/26/22 03/28/24 duloxetine 60 mg capsule,delayed 1 cap PO DAILY 10/26/22 03/28/24 release haloperidol decanoate 100 mg/mL 75 mg IM Q4W 10/26/22 03/22/24 intramuscular solution lithium carbonate 300 mg tablet 300 mg PO BID 10/26/22 03/28/24 lorazepam 1 mg tablet 1 mg PO TID PRN Anxiety 03/25/23 03/28/24 prazosin 1 mg capsule 1 mg PO BEDTIME 06/17/23 03/22/24 trazodone 100 mg tablet 200 mg PO BEDTIME 06/17/23 03/28/24 cetirizine 10 mg tablet 10 mg PO DAILY 02/16/24 03/22/24 prazosin 5 mg capsule 15 mg PO BEDTIME 02/16/24 03/22/24 Previous Rx's ?Medication ?Instructions ?Recorded acetaminophen 325 mg tablet 650 mg (2 x 325 mg) PO Q6H PRN 02/25/24 Headache/Pain Mild Scale (1-3) #0 tabs Allergies Allergy/AdvReac Type Severity Reaction Status Date / Time carbamazepine [From TEGRETOL] AdvReac Mild Nausea and Verified 03/28/24 20:32 Vomiting topiramate [From Topamax] AdvReac Mild Nausea and Verified 03/28/24 20:32 Vomiting Review of Systems 2 Review of Systems: Constitutional : No Weight loss, No Fever, No Chills, No Night Sweats, No Fatigue, No Malaise ENT/Mouth : No Hearing loss, No Ear Pain, No Nasal Congestion, No Sinus Pain, No Hoarseness, No sore throat, No Rhinorrhea, No Swallowing Difficulty Eyes: No Eye Pain, No Swelling, No Redness, No Foreign Body, No Discharge, No Vision Changes Cardiovascular : No Chest Pain, No SOB, No Dyspnea on Exertion, No Orthopnea, No Edema, No Palpitations Respiratory : No Cough, No Sputum, No Wheezing, No Smoke Exposure, No Dyspnea Gastrointestinal : No Nausea, No Vomiting, No Diarrhea, No Constipation, No abdominal Pain, No Hematochezia, No Melena Genitourinary : no irregular bleeding, No Dysuria, No Urinary Frequency, No Hematuria, No Urinary Incontinence, No Urgency, No Flank Pain, No Urinary Flow Changes, No Hesitancy Musculoskeletal : No joint pain, No Myalgias, No Joint Swelling Skin : No Skin Lesions, No rash Neuro : No Weakness, No Numbness, No Paresthesias, No Loss of Consciousness, No Dizziness, No Headache Psych : No Anxiety/Panic, complaining of auditory hallucinations, suicidal ideation, no HI Heme/Lymph: No Bruising, No Bleeding,No Lymphadenopathy Endocrine : No Polyuria, No Polydipsia, No Temperature Intolerance PMFSH Past Medical History Medical History Port-A-Cath in place History of electroconvulsive therapy COVID-19 COVID-19 Sprain of left foot Chronic post-traumatic stress disorder (PTSD) COPD (chronic obstructive pulmonary disease) Increased BMI GERD (gastroesophageal reflux disease) Recurrent major depression-severe Acute post-traumatic stress disorder Injury, self-inflicted Suicidal ideation Self-harming behavior Intentional self-harm Suicidal ideation Borderline personality disorder Schizoaffective disorder Adjustment disorder Asthma Depression Anxiety PTSD (post-traumatic stress disorder) Family History Family History Mother Brain cancer Other No family history of cardiac disease Social History Social History Household Members: Other Household Members Other:: prison staff and peers Housing: Other Housing Other:: [facility] Do you presently have visiting nurse or other home services: No Unable to assess alcohol history related to: Unable to respond Alcohol intake: never Comment: 1:1 sitter Patient Tobacco Use Status: Former Tobacco user Tobacco use type: Cigarette Cigarette Packs Per Day: 0.5 Cigarettes Per Day: 4 Years Smoked: 20 Smoked in Last 30 Days: Yes e-Cigarette/Vaping Use: Never Used Second Hand Smoke Exposure: No Use of substances other than those prescribed or required for medical reasons: No Substance Use Type: Marijuana Do you have a plan to hurt others: No Plan Patient : No service: No Sexual orientation: Straight/Heterosexual Physical Exam 2 Vital Signs: Vital Signs: Last Vital Signs Temp 99.1 F 03/28/24 20:28 Pulse 102 H 03/28/24 20:28 Resp 20 03/28/24 20:28 BP 136/94 H 03/28/24 20:28 Pulse Ox 97 03/28/24 20:28 O2 Del Method Room Air 03/28/24 20:28 BMI result Body Mass Index 39.1 Const: Other: Appearance: Alert. Oriented X3. No acute distress. Eyes: Pupils equal, round and reactive to light. ENT: Pharynx normal. Neck: Normal inspection. Neck supple. No lymph nodes noted. No crepitus CVS: Normal heart rate and rhythm. Pulses normal. Normal S1 and S2 Respiratory: No respiratory distress. Breath sounds normal. No Wheezing. No rales Abdomen: Soft and nontender. No rigidity. No distention. Skin: Skin warm and dry. Normal skin color. Normal skin turgor. Extremities: No lower extremity edema. No Lacerations. No Rash Neuro: Oriented X 3. No motor deficit. No sensory deficit. Moving all extremities. No slurred speech. CN 2 through 12 grossly intact Psych: calm, cooperative, normal affect Course Course Course Narrative: Patient does not have any scarring today, denies hurting herself in any way prior to arrival -patient is on a Section 12 -care team consult pending -physician observation started at 22:15 Medical Decision Making Medical Decision Making MDM Narrative: My interpretation of labs, hematology and chemistry at baseline. [place] level is subtherapeutic. Marijuana positive -patient remains on a Section 12 Differential Diagnosis Differential Diagnoses: The differential diagnosis associated with the presentation includes (Anxiety, depression, bipolar disorder, schizophrenia) Admission/Observation Consideration of admission/observation: Escalation of care including admission/observation considered (Patient is under physician observation waiting to be seen by the care team. Patient on a Section 12) Lab Data 03/28/24 21:37 03/28/24 21:11 Labs: Lab Results 03/28/24 03/28/24 03/28/24 Range/Units 20:47 21:11 21:37 WBC 7.0 (4.8-10.8) X10*3/uL RBC 3.83 L (4.20-5.50) X10*6/uL Hgb 11.7 L (12.0-16.0) g/dl Hct 35.1 L (37.0-47.0) % MCV 91.6 (80.0-98.0) fL MCH 30.5 (27.0-33.0) pg MCHC 33.3 (31.0-35.0) g/dl RDW 13.4 (11.0-16.0) % Plt Count 202 (160-400) X10*3/uL MPV 11.5 (9.4-12.3) fL Immature Gran % (Auto) 0.3 (0.0-0.4) % Neut % (Auto) 73.2 H (45-73) % Lymph % (Auto) 20.7 (20-40) % [place] % (Auto) 5.2 (2-11) % Eos % (Auto) 0.3 (0-4) % Baso % (Auto) 0.3 (0-2) % Lymph # (Auto) 1.5 (1.2-4.9) X10*3/uL [place] # (Auto) 0.4 (0.1-1.2) X10*3/uL Eos # (Auto) 0.0 (0.0-0.4) X10*3/uL Baso # (Auto) 0.0 (0.0-0.2) X10*3/uL Abs Immat Gran (auto) 0.02 (0.00-0.03) X10*3/uL Absolute Neuts (auto) 5.1 (2.0-8.3) x10*3/uL Absolute Nucleated RBC 0.000 (0.0-0.012) X10*3/uL Nucleated RBC % (auto) 0.0 (0.0-0.2) /100WBC Smear Tech's Comments VERIFIED Sodium 136 (135-145) mmol/L Potassium 4.1 (3.3-5.1) mmol/L Chloride 105 (96-108) mmol/L Carbon Dioxide 23 (22-29) mmol/L Anion Gap 12 (12-20) BUN 4 L (9-16) mg/dL Creatinine 0.81 (0.5-1.4) mg/dL Estim Creat Clear Calc 94.5 Estimated GFR > 60 Random Glucose 100 (60-115) mg/dL Calcium 9.8 (8.4-10.2) mg/dL Total Bilirubin 0.3 (0.0-1.0) mg/dL AST 13 (5-31) U/L ALT 8 (0-31) U/L Alkaline Phosphatase 60 (39-117) U/L Total Protein 7.4 (6.5-8.0) g/dL Albumin 4.4 (3.5-5.0) g/dL Urine Color Yellow Urine Appearance Clear Urine pH 7.0 (5.0-9.0) Ur Specific [place] <= 1.005 (1.005-1.025) Urine Protein Negative (Neg-Trace) mg/dL Urine Glucose (UA) Negative (Negative) mg/dL Urine Ketones Negative (Negative) mg/dL Urine Blood Negative (Negative) Urine Nitrite Negative (Negative) Ur Leukocyte Esterase Negative (Negative) Urine Opiates Screen Not Detected (Not Detect) Ur Buprenorphine Scrn Not Detected (Not Detect) ng/mL Ur Oxycodone Screen Not Detected (Not Detect) ng/mL Urine Methadone Screen Not Detected (Not Detect) ng/mL Urine Fentanyl Screen Not Detected (Not Detect) Ur Barbiturates Screen Not Detected (Not Detect) Ur Phencyclidine Scrn Not Detected (Not Detect) Ur Amphetamines Screen Not Detected (Not Detect) U Benzodiazepines Scrn Not Detected (Not Detect) [place] 0.54 L (0.60-1.20) mmol/L Urine Cocaine Screen Not Detected (Not Detect) U Marijuana (THC) Screen POSITIVE H (Not Detect) Ethyl Alcohol < 10 mg/dL Discharge Plan Discharge Clinical Impression: Auditory hallucinations, Suicidal ideation Patient Disposition: Still a Patient Prescriptions: No Action haloperidol 5 mg tablet 1 tab PO TID PRN (Reason: Agitation) diphenhydramine HCl [Banophen] 50 mg capsule 2 cap PO BEDTIME zolpidem 10 mg tablet 1 tab PO BEDTIME albuterol sulfate [ProAir HFA] 90 mcg/actuation HFA aerosol inhaler 2 puff inhalation Q6H PRN (Reason: Wheezing) omeprazole 20 mg Tablet,Delayed Release (Dr/Ec) 20 mg PO DAILY@0630 lithium carbonate 300 mg tablet 300 mg PO BID clonidine HCl 0.1 mg tablet 1 tab PO TID benztropine 0.5 mg tablet 1 tab PO BID haloperidol decanoate 100 mg/mL solution 75 mg IM Q4W Rx Instructions: NEXT DOSE: 07/09/23 duloxetine 60 mg capsule,delayed release(DR/EC) 1 cap PO DAILY prazosin 1 mg capsule 1 mg PO BEDTIME Protocol: Hold for SBP< HOLD for SBP < : 90 trazodone 100 mg tablet 200 mg PO BEDTIME acetaminophen 325 mg Tablet 650 mg PO Q6H PRN (Reason: Headache/Pain Mild Scale (1-3)) Qty: 0 0RF lorazepam 1 mg tablet 1 mg PO TID PRN (Reason: Anxiety) prazosin 5 mg capsule 15 mg PO BEDTIME cetirizine 10 mg tablet 10 mg PO DAILY Interventions: [place]-Suicide Risk Severity Scale Last Done: 03/28/24 20:39 Print Language: Kiswahili
--- NOTE | 2024-03-29 | ECG_ITS ---
Test Reason : QT INTERVAL Blood Pressure : / mmHG Vent. Rate : 074 BPM Atrial Rate : 074 BPM P-R Int : 146 ms QRS Dur : 068 ms QT Int : 380 ms P-R-T Axes : 075 083 070 degrees QTc Int : 421 ms Normal sinus rhythm with sinus arrhythmia Possible Left atrial enlargement Low voltage QRS Borderline ECG When compared with ECG of 22-MAR-2024 20:14, No significant changes seen Referred By: Rosi Barcenas Electronically Signed By:LIZET ANN
[2024-03-29] MEDS: Omeprazole 20 MG CAPSULE.DR PO (05:45)
--- NOTE | 2024-03-29 06:40 | PC.NURSE ---
Patient slept through the night, safety check 1:1 observed, VSS, meds and meals compliant, disposition pending per care team, no safety and behavior issues, will continue to monitor
[2024-03-29 08:27] LABS: UPreg QC Valid YES; Urine Pregnancy NEGATIVE (NEGATIVE)
[2024-03-29] MEDS: DULoxetine HCl 60 MG CAPSULE.DR PO (09:55)
[2024-03-29] MEDS: cloNIDine HCL 0.1 MG TABLET PO ×2 (09:55→21:00)
[2024-03-29] MEDS: Benztropine Mesylate 0.5 MG TABLET PO ×2 (09:55→20:59)
[2024-03-29] MEDS: Loratadine 10 MG TABLET PO (09:55)
[2024-03-29] MEDS: Lithium Carbonate 300 MG CAPSULE PO ×2 (09:55→20:58)
--- NOTE | 2024-03-29 09:58 | PC.NURSE ---
pt sleeping, wakes to verbal stimulus, pt medicated per order, sitter at bedside, rr equal/non labored, continue with plan of care
[2024-03-29 10:28] VITALS: BP 150/98; PULSE 110; RESP 18; TEMP 36.8; O2SAT 98
--- NOTE | 2024-03-29 10:28 | PC.NURSE ---
pt c/o nausea and is requesting nausea medication
[2024-03-29] MEDS: Ondansetron ODT 4 MG TAB.RAPDIS TRANSLINGU (10:49)
[2024-03-29 17:38] VITALS: BP 125/80; PULSE 101; RESP 16; TEMP 35.9; O2SAT 97
[2024-03-29] MEDS: LORazepam 1 MG TABLET PO ×2 (17:46→21:13)
[2024-03-29] MEDS: Acetaminophen 325 MG TABLET 650 MG PO (17:57)
[2024-03-29] MEDS: HaloperidoL 5 MG TABLET PO ×2 (18:24→21:13)
--- NOTE | 2024-03-29 18:24 | PC.NURSE ---
Pt. stating that she suddenly has the urge to want to hurt herself. 1:1 sitter remains at bedside. This RN and agronomy technician to bedside to assess pt. PRN Haldol given, warm blankets and weighted blanket provided. Pt. verbally expressing thanks to staff, stating that weighted blankets make her feel safe. Plan of care ongoing.
[2024-03-29] MEDS: Prazosin HCL 5 MG CAPSULE 15 MG PO (20:57)
[2024-03-29] MEDS: Prazosin HCL 1 MG CAPSULE PO (20:57)
[2024-03-29] MEDS: traZODone HCL 100 MG TABLET 200 MG PO (20:58)
[2024-03-29] MEDS: diphenhydrAMINE HCL 25 MG CAPSULE 100 MG PO (20:59)
[2024-03-29] MEDS: Zolpidem Tartrate 5 MG TABLET 10 MG PO (21:00)
[2024-03-30] MEDS: Benztropine Mesylate 0.5 MG TABLET PO ×2 (09:50→21:36)
[2024-03-30] MEDS: DULoxetine HCl 60 MG CAPSULE.DR PO (09:50)
[2024-03-30] MEDS: HaloperidoL 5 MG TABLET PO ×2 (09:50→18:56)
[2024-03-30] MEDS: cloNIDine HCL 0.1 MG TABLET PO (09:50)
[2024-03-30] MEDS: LORazepam 1 MG TABLET PO ×2 (09:50→18:56)
[2024-03-30] MEDS: Loratadine 10 MG TABLET PO (09:50)
[2024-03-30] MEDS: Lithium Carbonate 300 MG CAPSULE PO ×2 (09:50→21:37)
[2024-03-30 09:58] VITALS: BP 154/82; PULSE 76; RESP 16
--- NOTE | 2024-03-30 09:59 | PC.NURSE ---
patient awake, began punching self in head. requesting PRN medications for anxiety/agitation. medicated per the MAR - patient observer 1:[address] for patient safety
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
--- NOTE | 2024-03-30 13:09 | PHA.MEDREC ---
Pharmacy Consult ? Medication Reconciliation Pharmacy has REVIEWED the medication reconciliation completed by nursing. Reached out to nursing on questions I have since pt is self-inflicting pain onto herself. I asked nursing to confirm if patient is no longer on the following medications, as they were in recent claims (Advair HFA 230.21mcg, Hydroxyzine 50mg, Vitamin d3 25 mcg, [place] Carbonate 300mg.
[2024-03-30 14:32] VITALS: BP 134/86; PULSE 82
[2024-03-30] MEDS: LORazepam 2 MG/ML VIAL 1 MG IM (14:37)
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
[2024-03-30 20:00] VITALS: BP 72/33; PULSE 81; RESP 16; TEMP 36.4; O2SAT 96
[2024-03-30] MEDS: diphenhydrAMINE HCL 25 MG CAPSULE 100 MG PO (21:36)
[2024-03-30] MEDS: Zolpidem Tartrate 5 MG TABLET 10 MG PO (21:36)
[2024-03-30] MEDS: traZODone HCL 100 MG TABLET 200 MG PO (21:36)
[2024-03-31 08:15] VITALS: BP 121/67; PULSE 68; RESP 16; TEMP 36.4; O2SAT 96
[2024-03-31 10:23] VITALS: BP 121/67
[2024-03-31] MEDS: LORazepam 1 MG TABLET PO ×2 (10:23→22:42)
[2024-03-31] MEDS: cloNIDine HCL 0.1 MG TABLET PO ×3 (10:23→20:23)
[2024-03-31] MEDS: Benztropine Mesylate 0.5 MG TABLET PO ×2 (10:23→20:24)
[2024-03-31] MEDS: Loratadine 10 MG TABLET PO (10:23)
[2024-03-31] MEDS: Lithium Carbonate 300 MG CAPSULE PO ×2 (10:23→20:22)
[2024-03-31] MEDS: HaloperidoL 5 MG TABLET PO ×2 (10:24→20:22)
[2024-03-31] MEDS: DULoxetine HCl 60 MG CAPSULE.DR PO (10:24)
--- NOTE | 2024-03-31 11:46 | HO.PSYCHPN ---
Documented by User: Maryam Bardales, [employer] 03/31/24 14:25 Subjective Subjective Date of Service: 03/31/24 Reason For Visit: schizoaffective disorder, depressed Subjective Notes: Conditional Voluntary Healthcare Proxy: No Guardianship: No Medical Problems Affecting Mental Status: No Interim History: May I leave now? Anxious, apprehensive, unsure of what to do, how to cope. Discussed precipitants, care planning, what interventions are of help. Currently, fearing male providers, we will request female one to ones. Sleep, helpful for grounding and to organize myself. Will add Chlorpromazine 25 mg HS prn to trial to assist with grounding. Poor intake, will add Ensure TID with meals for pt to trial. Asthma exacerbation, will ask hospitalist to meet with pt to re-assess inhaler plan. Discussed her ECT plan. She finds ECT has been helpful. I believe I have not cut in 5 months because of ECT, it makes me feel stronger and well. Will ask her team to re-eval for a consideration of increase. Encouraged milieu engagement, pt concurs. Medication Compliance: Yes Side effects from medications: No Attending Groups: No Review of Systems Acute medical concerns: No Asthma exacerbation Medical Review of Systems: unchanged Review of Systems Review of Systems Yes all other systems are reviewed and are negative Mental Status Exam Mental Status Exam Patient Appearance: Fatigued Patient Orientation: Person, Place, Time and Situation Level of Consciousness: Alert Patient Behavior: Appropriate, Talkative, Cooperative, Anxious, Fatigued, Distractible, Isolative, Good Eye Contact and Crying Mood Description: Withdrawn, Depressed, Anxious and Apprehensive Affect Description: Flat Patient Cognition Impaired: No Ability to Follow Directions: Good Speech Pattern: Perseverating, Spontaneous Speech and Soft-Spoken Memory Description: Intact Hallucinations: Auditory (CAH) Perceptual Disturbances: Depersonalization and Derealization Thought Process: Distracted and Rumination Thought Content: positive for Circumstantial, positive for Perseveration, positive for Preoccupation and positive for Suicidal Ideation Depressive Symptoms: Increased Anxiety, Insomnia, Difficulty Sleeping, Changes in Appetite, Loss of Int. in Activity, Hopelessness, Isolating-Friends/Family, Unhappiness, Increased Fatigue, Thoughts of /Suicide and Loss of Energy Judgement: Poor Diagnostics Vital Signs (24Hr): Vital Signs - 24 hr 03/30/24 14:32 03/30/24 20:00 03/31/24 08:15 Temperature 97.6 F 97.6 F Pulse Rate 82 81 68 Respiratory Rate 16 16 Blood Pressure 134/86 72/33 L 121/67 Pulse Oximetry 96 96 Oxygen Delivery Method Room Air Room Air 03/31/24 10:23 Temperature Pulse Rate Respiratory Rate Blood Pressure 121/67 Pulse Oximetry Oxygen Delivery Method BMI result Body Mass Index 39.1 Labs 03/28/24 21:37 03/28/24 21:11 Medications Medications Current Medications Acetaminophen (Acetaminophen 325 Mg Tablet) 650 mg PO Q6H PRN PRN Reason: Headache/Pain Mild Scale (1-3) Last Admin: 03/29/24 17:57 Dose: 650 mg Al Hydroxide/Mg Hydroxide (Magnesium Hydrox/Alum Hydrox 30 Ml Oral.Susp) 30 ml PO Q6H PRN PRN Reason: Heartburn/Nausea Albuterol Sulfate (Albuterol Sulfate 90 Mcg 8 Gm Inhaler) 2 puff INHALE Q6H PRN PRN Reason: Wheezing Benztropine Mesylate (Benztropine Mesylate 0.5 Mg Tablet) 0.5 mg PO BID [facility] Last Admin: 03/31/24 10:23 Dose: 0.5 mg Chlorpromazine HCl (Chlorpromazine Hcl 25 Mg Tablet) 25 mg PO BEDTIME PRN PRN Reason: grounding support, sleep Clonidine HCl (Clonidine Hcl 0.1 Mg Tablet) 0.1 mg PO TID [facility]; Protocol Last Admin: 03/31/24 10:23 Dose: 0.1 mg Diphenhydramine HCl (Diphenhydramine Hcl 25 Mg Capsule) 100 mg PO BEDTIME [facility] Last Admin: 03/30/24 21:36 Dose: 100 mg Duloxetine HCl (Duloxetine Hcl 60 Mg Capsule.Dr) 60 mg PO DAILY [facility] Last Admin: 03/31/24 10:24 Dose: 60 mg Fluticasone Propionate (Fluticasone Propionate 100 Mcg Blst.W.Dev) 2 puff INHALE RBID [facility] Last Admin: 03/31/24 10:24 Dose: Not Given Haloperidol (Haloperidol 5 Mg Tablet) 5 mg PO TID PRN PRN Reason: Agitation Last Admin: 03/31/24 10:24 Dose: 5 mg Haloperidol Decanoate (Haloperidol Decanoate 50 Mg/Ml Vial) 75 mg IM Q30D [facility] Hydroxyzine HCl (Hydroxyzine Hcl 25 Mg Tablet) 25 mg PO Q6H PRN PRN Reason: Anxiety [place] Carbonate ([place] Carbonate 300 Mg Capsule) 300 mg PO BID [facility] Last Admin: 03/31/24 10:23 Dose: 300 mg Loratadine (Loratadine 10 Mg Tablet) 10 mg PO DAILY [facility] Last Admin: 03/31/24 10:23 Dose: 10 mg Lorazepam (Lorazepam 1 Mg Tablet) 1 mg PO TID PRN PRN Reason: Anxiety Last Admin: 03/31/24 10:23 Dose: 1 mg Magnesium Hydroxide (Milk Of Magnesia 30 Ml Oral.Susp) 30 ml PO DAILY PRN PRN Reason: Constipation Nicotine (Nicotine 21 Mg Patch.Td24) 21 mg TRANSDERMA DAILY PRN PRN Reason: Nicotine Cravings Nicotine Polacrilex (Nicotine Polacrilex 2 Mg Gum) 4 mg BUCCAL Q2H PRN PRN Reason: Nicotine Cravings Omeprazole (Omeprazole 20 Mg Capsule.Dr) 20 mg PO DAILY@0630 [facility] Last Admin: 03/31/24 06:26 Dose: Not Given Prazosin HCl (Prazosin Hcl 1 Mg Capsule) 1 mg PO BEDTIME [facility]; Protocol Last Admin: 03/30/24 21:38 Dose: Not Given Prazosin HCl (Prazosin Hcl 5 Mg Capsule) 15 mg PO BEDTIME [facility] Last Admin: 03/30/24 21:39 Dose: Not Given Trazodone HCl (Trazodone Hcl 100 Mg Tablet) 200 mg PO BEDTIME [facility] Last Admin: 03/30/24 21:36 Dose: 200 mg Trazodone HCl (Trazodone Hcl 50 Mg Tablet) 50 mg PO BEDTIME MRX1 PRN PRN Reason: Insomnia Zolpidem Tartrate (Zolpidem Tartrate 5 Mg Tablet) 10 mg PO BEDTIME [facility] Last Admin: 03/30/24 21:36 Dose: 10 mg Allergies Allergies Allergy/AdvReac Type Severity Reaction Status Date / Time carbamazepine [From TEGRETOL] AdvReac Mild Nausea and Verified 03/28/24 20:32 Vomiting topiramate [From Topamax] AdvReac Mild Nausea and Verified 03/28/24 20:32 Vomiting Assessment & Plan Assessment & Plan (1) Chronic post-traumatic stress disorder (PTSD): Status: Chronic Code(s): F43.12 - Post-traumatic stress disorder, chronic (2) Schizoaffective disorder, depressive type: Status: Chronic Code(s): F25.1 - Schizoaffective disorder, depressive type (3) Borderline personality disorder: Status: Chronic Code(s): F60.3 - Borderline personality disorder Plan 39 yo female, history of PTSD, schizoaffective disorder, borderline personality disorder presents with CAH to run into traffic, intense flashbacks, hearing voices including those of her sister who was murdered. Possible precipitant is upcoming anniversary of sisters and pending trial. Pt reports regular medical cannabis use and symptoms of poor sleep, poor appetite with weight loss. Pt participating in regular ECT treatment at this time. Plan: Admit, One to One Special, Conditional Voluntary Status Ativan 1 mg IM on admission Collateral contact Asthma inhalers ordered, pt may need hospitalist consult if sx exacerbate Continue current regime, will discuss [place] increase with pt. Diagnostics as needed Full milieu encouraged, coping skill review, grounding skills review. Pt reports no SIBS in 5 months. Continue ECT schedule, possibly consider increase in frequency during in pt care. Pt seen chart reviewed will schedule for 04/03/24 Ronald Silva MD 03/31/24 -Hospitalist consult, asthma exacerbation -Chlorpromazine 25 mg HS prn grounding assistance, sleep -Ensure tid -Female one to one specials at this time -ECT consult for consideration of an increase in weekly treatments. -Milieu encouraged Reason for continued inpatient stay Substantial Risk for: rapid decompensation Time Spent With Patient Time: Total time managing care of this patient today ____ minutes. Documented by User: Abdoul Silva MD 03/31/24 13:42 Subjective Subjective Reason For Visit: schizoaffective disorder, depressed Diagnostics Labs 03/28/24 21:37 03/28/24 21:11 Assessment & Plan Assessment & Plan (1) Chronic post-traumatic stress disorder (PTSD): Status: Chronic Code(s): F43.12 - Post-traumatic stress disorder, chronic (2) Schizoaffective disorder, depressive type: Status: Chronic Code(s): F25.1 - Schizoaffective disorder, depressive type (3) Borderline personality disorder: Status: Chronic Code(s): F60.3 - Borderline personality disorder Plan 39 yo female, history of PTSD, schizoaffective disorder, borderline personality disorder presents with CAH to run into traffic, intense flashbacks, hearing voices including those of her sister who was murdered. Possible precipitant is upcoming anniversary of sisters and pending trial. Pt reports regular medical cannabis use and symptoms of poor sleep, poor appetite with weight loss. Pt participating in regular ECT treatment at this time. Plan: Admit, One to One Special, Conditional Voluntary Status Ativan 1 mg IM on admission Collateral contact Asthma inhalers ordered, pt may need hospitalist consult if sx exacerbate Continue current regime, will discuss [place] increase with pt. Diagnostics as needed Full milieu encouraged, coping skill review, grounding skills review. Pt reports no SIBS in 5 months. Continue ECT schedule, possibly consider increase in frequency during in pt care. Pt seen chart reviewed will schedule for 04/03/24 Ronald Silva MD
[2024-03-31 14:33] VITALS: BP 136/68
[2024-03-31] MEDS: hydrOXYzine HCL 25 MG TABLET PO ×2 (14:33→22:41)
--- NOTE | 2024-03-31 16:13 | HO.ECTCONS_ITS ---
History of Present Illness Data of Consult Service Date: 03/31/24 Primary Care Provider: Carroll Gaviria MD [facility] Reason for consult: ECT Pre-opt evaluation Patient is a 31-year-old female with a PMH significant for COPD/asthma overlap syndrome, GERD, PTSD, schizoaffective disorder, and borderline personality disorder admitted to [facility] psychiatry unit with consult placed to hospitalist services for ECT clearance. Pt reports she has undergone ECT many times in the past without complications, most recently last week. Is interested in continuing ECT as it works for me . Has known asthma/COPD overlap on a rescue inhaler which she uses intermittently but not daily. Last used a few days or maybe a week ago . Patient denies known history of TBI, stroke, intracranial bleed, intracranial mass, or seizure disorder. Denies history of bleeding disorders, CAD, or previous difficulties with anesthesia. EKG negative for acute ischemia and prolonged QTc patient herself has no acute medical complaints at this time. Review of Systems 2 Review of Systems: Patient has no acute medical complaints at this time Denies shortness a breath or difficulty breathing No chest pain/pressure, palpitations PMFSH Medical History Port-A-Cath in place History of electroconvulsive therapy COVID-19 COVID-19 Sprain of left foot Chronic post-traumatic stress disorder (PTSD) COPD (chronic obstructive pulmonary disease) Increased BMI GERD (gastroesophageal reflux disease) Recurrent major depression-severe Acute post-traumatic stress disorder Injury, self-inflicted Suicidal ideation Self-harming behavior Intentional self-harm Suicidal ideation Borderline personality disorder Schizoaffective disorder Adjustment disorder Asthma Depression Anxiety PTSD (post-traumatic stress disorder) Family History Mother Brain cancer Other No family history of cardiac disease Social History Household Members: Caregiver and Other Household Members Other:: retirement staff and peers Housing: Other Housing Other:: Residential Do you presently have visiting nurse or other home services: No Unable to assess alcohol history related to: Unable to respond Alcohol intake: never Comment: 1:1 sitter Patient Tobacco Use Status: Former Tobacco user Tobacco use type: Cigarette Cigarette Packs Per Day: 0.5 Cigarettes Per Day: 4 Years Smoked: 20 Smoked in Last 30 Days: Yes e-Cigarette/Vaping Use: Never Used Patient Interested in Nicotine Replacement: Yes Patient Given Instructions on How to Stop Smoking: No Second Hand Smoke Exposure: No Use of substances other than those prescribed or required for medical reasons: Yes Substance Use Type: Marijuana Substance Use Frequency: Weekly Last Used Substance: Days (ago) Currently Displaying Signs/Symptoms of Drug Intoxication Withdrawal: No Any prior treatment program specific to substance use: No Have you been hit, kicked, punched, or otherwise hurt by someone within the past year? If so, by whom?: No Do you feel safe in your current relationship?: No Current Relationship Is there a partner from a previous relationship who is making you feel unsafe now?: No Are you made to feel afraid or neglected: No Advance Directives: No Advance Directives Information Provided: Yes Do you have thoughts of harming others: None Do you have a plan to hurt others: No Plan Recently lost weight without trying: No Nutrition Risks: No Nutritional Risk Patient : No : No Poor oral hygiene: No service: No Sexual orientation: Straight/Heterosexual Meds Allergies Allergy/AdvReac Type Severity Reaction Status Date / Time carbamazepine [From TEGRETOL] AdvReac Mild Nausea and Verified 03/28/24 20:32 Vomiting topiramate [From Topamax] AdvReac Mild Nausea and Verified 03/28/24 20:32 Vomiting Active Medications: Current Medications Acetaminophen (Acetaminophen 325 Mg Tablet) 650 mg PO Q6H PRN PRN Reason: Headache/Pain Mild Scale (1-3) Last Admin: 03/29/24 17:57 Dose: 650 mg Al Hydroxide/Mg Hydroxide (Magnesium Hydrox/Alum Hydrox 30 Ml Oral.Susp) 30 ml PO Q6H PRN PRN Reason: Heartburn/Nausea Albuterol Sulfate (Albuterol Sulfate 90 Mcg 8 Gm Inhaler) 2 puff INHALE Q6H PRN PRN Reason: Wheezing Benztropine Mesylate (Benztropine Mesylate 0.5 Mg Tablet) 0.5 mg PO BID [facility] Last Admin: 03/31/24 10:23 Dose: 0.5 mg Chlorpromazine HCl (Chlorpromazine Hcl 25 Mg Tablet) 25 mg PO BEDTIME PRN PRN Reason: grounding support, sleep Clonidine HCl (Clonidine Hcl 0.1 Mg Tablet) 0.1 mg PO TID [facility]; Protocol Last Admin: 03/31/24 14:33 Dose: 0.1 mg Diphenhydramine HCl (Diphenhydramine Hcl 25 Mg Capsule) 100 mg PO BEDTIME [facility] Last Admin: 03/30/24 21:36 Dose: 100 mg Duloxetine HCl (Duloxetine Hcl 60 Mg Capsule.) 60 mg PO DAILY [facility] Last Admin: 03/31/24 10:24 Dose: 60 mg Fluticasone Propionate (Fluticasone Propionate 100 Mcg Blst.W.Dev) 2 puff INHALE RBID [facility] Last Admin: 03/31/24 10:24 Dose: Not Given Haloperidol (Haloperidol 5 Mg Tablet) 5 mg PO TID PRN PRN Reason: Agitation Last Admin: 03/31/24 10:24 Dose: 5 mg Haloperidol Decanoate (Haloperidol Decanoate 50 Mg/Ml Vial) 75 mg IM Q30D [facility] Hydroxyzine HCl (Hydroxyzine Hcl 25 Mg Tablet) 25 mg PO Q6H PRN PRN Reason: Anxiety Last Admin: 03/31/24 14:33 Dose: 25 mg [place] Carbonate ([place] Carbonate 300 Mg Capsule) 300 mg PO BID [facility] Last Admin: 03/31/24 10:23 Dose: 300 mg Loratadine (Loratadine 10 Mg Tablet) 10 mg PO DAILY [facility] Last Admin: 03/31/24 10:23 Dose: 10 mg Lorazepam (Lorazepam 1 Mg Tablet) 1 mg PO TID PRN PRN Reason: Anxiety Last Admin: 03/31/24 10:23 Dose: 1 mg Magnesium Hydroxide (Milk Of Magnesia 30 Ml Oral.Susp) 30 ml PO DAILY PRN PRN Reason: Constipation Nicotine (Nicotine 21 Mg Patch.Td24) 21 mg TRANSDERMA DAILY PRN PRN Reason: Nicotine Cravings Nicotine Polacrilex (Nicotine Polacrilex 2 Mg Gum) 4 mg BUCCAL Q2H PRN PRN Reason: Nicotine Cravings Omeprazole (Omeprazole 20 Mg Capsule.Dr) 20 mg PO DAILY@0630 [facility] Last Admin: 03/31/24 06:26 Dose: Not Given Prazosin HCl (Prazosin Hcl 1 Mg Capsule) 1 mg PO BEDTIME [facility]; Protocol Last Admin: 03/30/24 21:38 Dose: Not Given Prazosin HCl (Prazosin Hcl 5 Mg Capsule) 15 mg PO BEDTIME [facility] Last Admin: 03/30/24 21:39 Dose: Not Given Trazodone HCl (Trazodone Hcl 100 Mg Tablet) 200 mg PO BEDTIME [facility] Last Admin: 03/30/24 21:36 Dose: 200 mg Trazodone HCl (Trazodone Hcl 50 Mg Tablet) 50 mg PO BEDTIME MRX1 PRN PRN Reason: Insomnia Zolpidem Tartrate (Zolpidem Tartrate 5 Mg Tablet) 10 mg PO BEDTIME [facility] Last Admin: 03/30/24 21:36 Dose: 10 mg Home Medications ?Medication ?Instructions ?Recorded ?Confirmed ?Last Taken ?Type albuterol sulfate 90 mcg/actuation 2 puff inhalation Q6H PRN Wheezing 08/14/22 03/28/24 03/13/23 History aerosol inhaler (ProAir HFA) diphenhydramine HCl 50 mg capsule 2 cap PO BEDTIME 08/14/22 03/28/24 02/15/24 20:00 History (Banophen) haloperidol 5 mg tablet 1 tab PO TID PRN Agitation 08/14/22 03/28/24 03/13/23 History omeprazole 20 mg tablet,delayed 20 mg PO DAILY@0630 08/14/22 03/28/24 02/15/24 06:30 History release zolpidem 10 mg tablet 1 tab PO BEDTIME 08/14/22 03/28/24 02/15/24 20:00 History benztropine 0.5 mg tablet 1 tab PO BID 10/26/22 03/28/24 02/15/24 17:00 History clonidine HCl 0.1 mg tablet 1 tab PO TID 10/26/22 03/28/24 02/15/24 20:00 History duloxetine 60 mg capsule,delayed 1 cap PO DAILY 10/26/22 03/28/24 02/15/24 07:00 History release haloperidol decanoate 100 mg/mL 75 mg IM Q4W 10/26/22 03/28/24 03/08/24 History intramuscular solution lithium carbonate 300 mg tablet 300 mg PO BID 10/26/22 03/28/24 02/15/24 20:00 History lorazepam 1 mg tablet 1 mg PO TID PRN Anxiety 03/25/23 03/28/24 Unknown History prazosin 1 mg capsule 1 mg PO BEDTIME 06/17/23 03/28/2424 20:00 History trazodone 100 mg tablet 200 mg PO BEDTIME 06/17/23 03/28/24 02/15/24 20:00 History cetirizine 10 mg tablet 10 mg PO DAILY 02/16/24 03/28/24 02/15/24 08:00 History prazosin 5 mg capsule 15 mg PO BEDTIME 02/16/24 03/28/24 02/15/24 20:00 History Physical Exam 2 Vital Signs and Narrative: Vital Signs: Last Vital Signs Temp 97.6 F 03/31/24 08:15 Pulse 68 03/31/24 08:15 Resp 16 03/31/24 08:15 BP 136/68 03/31/24 14:33 Pulse Ox 96 03/31/24 08:15 O2 Del Method Room Air 03/31/24 08:15 BMI result Body Mass Index 39.1 General: AOx3, no acute distress Resp: CTA bilaterally CVS: S1, S2, RRR GI: +BS, NT, no distention Skin: Warm, dry Neuro: Cranial nerves II-XII grossly intact bilaterally. Motor grossly intact bilaterally Extremities: No edema Psych: Appropriate affect Results Labs 03/28/24 21:37 03/28/24 21:11 Assessment and Plan (1) Pre-op evaluation: Status: Resolved Plan Patient is a 31-year-old female with a PMH significant for COPD/asthma overlap syndrome, GERD, PTSD, schizoaffective disorder, and borderline personality disorder admitted to [facility] unit with consult placed to hospitalist services for ECT clearance. ECT pre-op evaluation Patient has undergone ECT multiple times in the past without incident EKG without ischemic changes or prolonged QTc No previous known difficulties with anesthesia Revised cardiac risk index: 0 points Based on examined patient history, there are no medical contraindications to patient undergoing ECT Thank you for allowing us to participate in the care of this patient. Signing off at this time. Please re-consult if any acute complaints or issues arise.
--- NOTE | 2024-03-31 16:57 | P.EN_ITS ---
Event Note Date of Service: 03/31/24 Event Note: Patient is a 31-year-old female with a PMH significant for COPD/asthma overlap syndrome, GERD, PTSD, schizoaffective disorder, and borderline personality disorder admitted to [facility] psychiatry unit with consult placed to hospitalist services for re-evaluation of asthma regimen. Patient is seen and examined in her room where she is resting comfortably in bed, however, becomes increasingly agitated and frustrated when asked questions concerning her medical conditions. Patient does not the most forthcoming or precise with answering questions and is obviously frustrated at times with interview examination. Currently only on rescue albuterol inhaler. Patient reports she has had difficulties with asthma her whole life, though it is unclear exactly what these difficulties are. Also unclear how often she uses her rescue inhaler though denies using it daily. M ost likely appears she uses inhaler at least a few times each month. He is not on maintenance inhaler. Currently denies shortness a breath or difficulty breathing. Has history of smoking at least 1/2 pack daily, though reports she ?just? quit. Physical examination reveals lungs clear to auscultation without wheezing. Given pt's lack of specificty regarding frequency or duration of symptoms and the fact the patient's lungs are currently CTA would not suggest any alterations to patient's current asthma regimen. Would encourage patient to refrain smoking. Weight loss reduction would also be beneficial. Thank you for allowing us to participate in the care of this patient. Will sign off at this time. Re-consult if any acute issues or needs arise. Time Spent With Patient Time: Total time managing care of this patient today ____ minutes.
[2024-03-31 20:20] VITALS: BP 112/62; PULSE 72; RESP 16; TEMP 36.9; O2SAT 96
[2024-03-31] MEDS: diphenhydrAMINE HCL 25 MG CAPSULE 100 MG PO (20:21)
[2024-03-31] MEDS: Zolpidem Tartrate 5 MG TABLET 10 MG PO (20:23)
[2024-03-31] MEDS: traZODone HCL 100 MG TABLET 200 MG PO (20:23)
[2024-03-31] MEDS: chlorproMAZINE HCl 25 MG TABLET PO (20:23)
[2024-03-31] MEDS: Prazosin HCL 5 MG CAPSULE 15 MG PO (20:24)
[2024-03-31] MEDS: Prazosin HCL 1 MG CAPSULE PO (20:24)
[2024-03-31] MEDS: Fluticasone Propionate 100 MCG BLST.W.DEV 2 PUFF INHALE (20:31)
[2024-03-31] MEDS: traZODone HCL 50 MG TABLET PO (22:42)
[2024-04-01 07:30] VITALS: BP 107/55; PULSE 87; TEMP 36.9; O2SAT 94
[2024-04-01] MEDS: Lithium Carbonate 300 MG CAPSULE PO ×2 (09:09→20:40)
[2024-04-01] MEDS: Loratadine 10 MG TABLET PO (09:09)
[2024-04-01] MEDS: Benztropine Mesylate 0.5 MG TABLET PO ×2 (09:09→20:40)
[2024-04-01] MEDS: DULoxetine HCl 60 MG CAPSULE.DR PO (09:09)
[2024-04-01 09:10] VITALS: BP 107/55
[2024-04-01] MEDS: cloNIDine HCL 0.1 MG TABLET PO ×3 (09:10→22:58)
[2024-04-01] MEDS: Omeprazole 20 MG CAPSULE.DR PO (09:10)
[2024-04-01] MEDS: Acetaminophen 325 MG TABLET 650 MG PO (13:36)
[2024-04-01] MEDS: HaloperidoL 5 MG TABLET PO ×3 (13:41→22:58)
[2024-04-01 14:45] VITALS: BP 113/58
--- NOTE | 2024-04-01 17:08 | P.PNPSI_ITS ---
Subjective Subjective Date of Service: 04/01/24 Reason For Visit: schizoaffective disorder, depressed Interim History: calm, cooperative. awaiting ECT wednesday. no complaints or requests. per staff, yesterday withdrawn. poor PO intake. largely mute. CAH to suicide. no SIB. no behavioral issues. Mental Status Exam Mental Status Exam Narrative: Pt is alert and oriented; behavior is cooperative and calm; dressed in casual attire with unkempt hair; eye contact appropriate; Speech is normal rate, volume and prosody and not pressured; no psychomotor agitation/retardation present; thought process is organized and goal directed; Thought content is on tx; otherwise pertinent to relevant topics and without any delusional content, paranoid ideations or grandiosity; no SI/HI/AVH expressed. Patients insight and judgment are poor. Diagnostics Vital Signs (24Hr): Vital Signs - 24 hr 03/31/24 20:20 04/01/24 07:30 04/01/24 09:10 Temperature 98.4 F 98.5 F Pulse Rate 72 87 Respiratory Rate 16 Blood Pressure 112/62 107/55 L 107/55 L Pulse Oximetry 96 94 Oxygen Delivery Method Room Air Room Air 04/01/24 14:45 Temperature Pulse Rate Respiratory Rate Blood Pressure 113/58 L Pulse Oximetry Oxygen Delivery Method BMI result Body Mass Index 39.1 Labs 03/28/24 21:37 03/28/24 21:11 Medications Medications Current Medications Acetaminophen (Acetaminophen 325 Mg Tablet) 650 mg PO Q6H PRN PRN Reason: Headache/Pain Mild Scale (1-3) Last Admin: 04/01/24 13:36 Dose: 650 mg Al Hydroxide/Mg Hydroxide (Magnesium Hydrox/Alum Hydrox 30 Ml Oral.Susp) 30 ml PO Q6H PRN PRN Reason: Heartburn/Nausea Albuterol Sulfate (Albuterol Sulfate 90 Mcg 8 Gm Inhaler) 2 puff INHALE Q6H PRN PRN Reason: Wheezing Benztropine Mesylate (Benztropine Mesylate 0.5 Mg Tablet) 0.5 mg PO BID [facility] Last Admin: 04/01/24 09:09 Dose: 0.5 mg Chlorpromazine HCl (Chlorpromazine Hcl 25 Mg Tablet) 25 mg PO BEDTIME PRN PRN Reason: grounding support, sleep Last Admin: 03/31/24 20:23 Dose: 25 mg Clonidine HCl (Clonidine Hcl 0.1 Mg Tablet) 0.1 mg PO TID [facility]; Protocol Last Admin: 04/01/24 14:45 Dose: 0.1 mg Diphenhydramine HCl (Diphenhydramine Hcl 25 Mg Capsule) 100 mg PO BEDTIME [facility] Last Admin: 03/31/24 20:21 Dose: 100 mg Duloxetine HCl (Duloxetine Hcl 60 Mg Capsule.) 60 mg PO DAILY [facility] Last Admin: 04/01/24 09:09 Dose: 60 mg Fluticasone Propionate (Fluticasone Propionate 100 Mcg Blst.W.Dev) 2 puff INHALE RBID [facility] Last Admin: 04/01/24 09:12 Dose: Not Given Haloperidol (Haloperidol 5 Mg Tablet) 5 mg PO TID PRN PRN Reason: Agitation Last Admin: 04/01/24 13:41 Dose: 5 mg Haloperidol Decanoate (Haloperidol Decanoate 50 Mg/Ml Vial) 75 mg IM Q30D [facility] Hydroxyzine HCl (Hydroxyzine Hcl 25 Mg Tablet) 25 mg PO Q6H PRN PRN Reason: Anxiety Last Admin: 03/31/24 22:41 Dose: 25 mg [place] Carbonate ([place] Carbonate 300 Mg Capsule) 300 mg PO BID [facility] Last Admin: 04/01/24 09:09 Dose: 300 mg Loratadine (Loratadine 10 Mg Tablet) 10 mg PO DAILY [facility] Last Admin: 04/01/24 09:09 Dose: 10 mg Lorazepam (Lorazepam 1 Mg Tablet) 1 mg PO TID PRN PRN Reason: Anxiety Last Admin: 03/31/24 22:42 Dose: 1 mg Magnesium Hydroxide (Milk Of Magnesia 30 Ml Oral.Susp) 30 ml PO DAILY PRN PRN Reason: Constipation Nicotine (Nicotine 21 Mg Patch.Td24) 21 mg TRANSDERMA DAILY PRN PRN Reason: Nicotine Cravings Nicotine Polacrilex (Nicotine Polacrilex 2 Mg Gum) 4 mg BUCCAL Q2H PRN PRN Reason: Nicotine Cravings Omeprazole (Omeprazole 20 Mg Capsule.Dr) 20 mg PO DAILY@0630 [facility] Last Admin: 04/01/24 09:10 Dose: 20 mg Prazosin HCl (Prazosin Hcl 1 Mg Capsule) 1 mg PO BEDTIME [facility]; Protocol Last Admin: 03/31/24 20:24 Dose: 1 mg Prazosin HCl (Prazosin Hcl 5 Mg Capsule) 15 mg PO BEDTIME [facility] Last Admin: 03/31/24 20:24 Dose: 15 mg Trazodone HCl (Trazodone Hcl 100 Mg Tablet) 200 mg PO BEDTIME [facility] Last Admin: 03/31/24 20:23 Dose: 200 mg Trazodone HCl (Trazodone Hcl 50 Mg Tablet) 50 mg PO BEDTIME MRX1 PRN PRN Reason: Insomnia Last Admin: 03/31/24 22:42 Dose: 50 mg Zolpidem Tartrate (Zolpidem Tartrate 5 Mg Tablet) 10 mg PO BEDTIME [facility] Last Admin: 03/31/24 20:23 Dose: 10 mg Allergies Allergies Allergy/AdvReac Type Severity Reaction Status Date / Time carbamazepine [From TEGRETOL] AdvReac Mild Nausea and Verified 03/28/24 20:32 Vomiting topiramate [From Topamax] AdvReac Mild Nausea and Verified 03/28/24 20:32 Vomiting Assessment & Plan Assessment & Plan (1) Chronic post-traumatic stress disorder (PTSD): Status: Chronic Code(s): F43.12 - Post-traumatic stress disorder, chronic (2) Borderline personality disorder: Status: Chronic Code(s): F60.3 - Borderline personality disorder (3) Pre-op evaluation: Status: Resolved Code(s): Z01.818 - Encounter for other preprocedural examination Assessment and Plan: Patient is a 31-year-old female with a PMH significant for COPD/asthma overlap syndrome, GERD, PTSD, schizoaffective disorder, and borderline personality disorder admitted to psychiatry unit with consult placed to hospitalist services for ECT clearance. ECT pre-op evaluation Patient has undergone ECT multiple times in the past without incident EKG without ischemic changes or prolonged QTc No previous known difficulties with anesthesia Revised cardiac risk index: 0 points Based on examined patient history, there are no medical contraindications to patient undergoing ECT Thank you for allowing us to participate in the care of this patient. Signing off at this time. Please re-consult if any acute complaints or issues arise. Plan 39 yo female, history of PTSD, schizoaffective disorder, borderline personality disorder presents with CAH to run into traffic, intense flashbacks, hearing voices including those of her sister who was murdered. Possible precipitant is upcoming anniversary of sisters and pending trial. Pt reports regular medical cannabis use and symptoms of poor sleep, poor appetite with weight loss. Pt participating in regular ECT treatment at this time. Plan: Admit, One to One Special, Conditional Voluntary Status Ativan 1 mg IM on admission Collateral contact Asthma inhalers ordered, pt may need hospitalist consult if sx exacerbate Continue current regime, will discuss [place] increase with pt. Diagnostics as needed Full milieu encouraged, coping skill review, grounding skills review. Pt reports no SIBS in 5 months. Continue ECT schedule, possibly consider increase in frequency during in pt care. Pt seen chart reviewed will schedule for 04/03/24 Ronald Silva MD 04/01: ECT wednesday. no ativan after 5 wednesday. ambien left in place due to shorter half-life. calm and cooperative today, no complaints or requests. Reason for continued inpatient stay Substantial Risk for: harm to self, inability to function and rapid decompensation Time Spent With Patient Time: Total time managing care of this patient today ____ minutes.
[2024-04-01] MEDS: LORazepam 1 MG TABLET PO ×2 (18:13→22:58)
[2024-04-01 20:37] VITALS: BP 93/69; PULSE 96; RESP 16; TEMP 36.6; O2SAT 96
[2024-04-01] MEDS: chlorproMAZINE HCl 25 MG TABLET PO (20:40)
[2024-04-01] MEDS: hydrOXYzine HCL 25 MG TABLET PO (20:40)
[2024-04-01] MEDS: Zolpidem Tartrate 5 MG TABLET 10 MG PO (20:40)
[2024-04-01] MEDS: traZODone HCL 50 MG TABLET PO ×2 (20:40→22:58)
[2024-04-01] MEDS: traZODone HCL 100 MG TABLET 200 MG PO (20:40)
[2024-04-01] MEDS: diphenhydrAMINE HCL 25 MG CAPSULE 100 MG PO (20:40)
[2024-04-01 22:49] VITALS: BP 118/83; PULSE 110
[2024-04-01] MEDS: Prazosin HCL 1 MG CAPSULE PO (22:58)
[2024-04-01] MEDS: Prazosin HCL 5 MG CAPSULE 15 MG PO (22:58)
[2024-04-01] MEDS: Fluticasone Propionate 100 MCG BLST.W.DEV 2 PUFF INHALE (23:00)
[2024-04-02 09:21] VITALS: BP 110/61; PULSE 84; RESP 18; TEMP 36.7; O2SAT 98
[2024-04-02] MEDS: Loratadine 10 MG TABLET PO (09:23)
[2024-04-02] MEDS: DULoxetine HCl 60 MG CAPSULE.DR PO (09:23)
[2024-04-02] MEDS: Lithium Carbonate 300 MG CAPSULE PO (09:24)
[2024-04-02] MEDS: Omeprazole 20 MG CAPSULE.DR PO (09:24)
[2024-04-02] MEDS: cloNIDine HCL 0.1 MG TABLET PO ×3 (09:24→21:08)
[2024-04-02] MEDS: Benztropine Mesylate 0.5 MG TABLET PO ×2 (09:24→21:09)
[2024-04-02 15:30] VITALS: BP 128/74
--- NOTE | 2024-04-02 16:47 | P.PNPSI_ITS ---
Subjective Subjective Date of Service: 04/02/24 Reason For Visit: schizoaffective disorder, depressed Interim History: sleeping days. no issues. wants to DC home after ECT tomorrow. per staff, softly hitting self in head x 2 yesterday with CAH to suicide, both times responsive to PRN haldol and ativan. Mental Status Exam Mental Status Exam Narrative: Pt is alert and oriented; behavior is cooperative and calm; dressed in casual attire with unkempt hair; eye contact appropriate; Speech is normal rate, volume and prosody and not pressured; no psychomotor agitation/retardation present; thought process is organized and goal directed; Thought content is on tx; otherwise pertinent to relevant topics and without any delusional content, paranoid ideations or grandiosity; no SI/HI/AVH expressed. Patients insight and judgment are poor. Diagnostics Vital Signs (24Hr): Vital Signs - 24 hr 04/01/24 20:37 04/01/24 22:49 04/02/24 09:21 Temperature 97.8 F 98.1 F Pulse Rate 96 110 H 84 Respiratory Rate 16 18 Blood Pressure 93/69 118/83 110/61 Pulse Oximetry 96 98 Oxygen Delivery Method Room Air Room Air 04/02/24 15:30 Temperature Pulse Rate Respiratory Rate Blood Pressure 128/74 Pulse Oximetry Oxygen Delivery Method BMI result Body Mass Index 39.1 Labs 03/28/24 21:37 03/28/24 21:11 Medications Medications Current Medications Acetaminophen (Acetaminophen 325 Mg Tablet) 650 mg PO Q6H PRN PRN Reason: Headache/Pain Mild Scale (1-3) Last Admin: 04/01/24 13:36 Dose: 650 mg Al Hydroxide/Mg Hydroxide (Magnesium Hydrox/Alum Hydrox 30 Ml Oral.Susp) 30 ml PO Q6H PRN PRN Reason: Heartburn/Nausea Albuterol Sulfate (Albuterol Sulfate 90 Mcg 8 Gm Inhaler) 2 puff INHALE Q6H PRN PRN Reason: Wheezing Benztropine Mesylate (Benztropine Mesylate 0.5 Mg Tablet) 0.5 mg PO BID [facility] Last Admin: 04/02/24 09:24 Dose: 0.5 mg Chlorpromazine HCl (Chlorpromazine Hcl 25 Mg Tablet) 25 mg PO BEDTIME PRN PRN Reason: grounding support, sleep Last Admin: 04/01/24 20:40 Dose: 25 mg Clonidine HCl (Clonidine Hcl 0.1 Mg Tablet) 0.1 mg PO TID [facility]; Protocol Last Admin: 04/02/24 15:30 Dose: 0.1 mg Diphenhydramine HCl (Diphenhydramine Hcl 25 Mg Capsule) 100 mg PO BEDTIME [facility] Last Admin: 04/01/24 20:40 Dose: 100 mg Duloxetine HCl (Duloxetine Hcl 60 Mg Capsule.Dr) 60 mg PO DAILY [facility] Last Admin: 04/02/24 09:23 Dose: 60 mg Fluticasone Propionate (Fluticasone Propionate 100 Mcg Blst.W.Dev) 2 puff INHALE RBID [facility] Last Admin: 04/02/24 09:25 Dose: Not Given Haloperidol (Haloperidol 5 Mg Tablet) 5 mg PO TID PRN PRN Reason: Agitation Last Admin: 04/01/24 22:58 Dose: 5 mg Haloperidol Decanoate (Haloperidol Decanoate 50 Mg/Ml Vial) 75 mg IM Q30D [facility] Hydroxyzine HCl (Hydroxyzine Hcl 25 Mg Tablet) 25 mg PO Q6H PRN PRN Reason: Anxiety Last Admin: 04/01/24 20:40 Dose: 25 mg [place] Carbonate ([place] Carbonate 300 Mg Capsule) 300 mg PO BID [facility] Last Admin: 04/02/24 09:24 Dose: 300 mg Loratadine (Loratadine 10 Mg Tablet) 10 mg PO DAILY [facility] Last Admin: 04/02/24 09:23 Dose: 10 mg Lorazepam (Lorazepam 1 Mg Tablet) 1 mg PO TID PRN PRN Reason: Anxiety Last Admin: 04/01/24 22:58 Dose: 1 mg Magnesium Hydroxide (Milk Of Magnesia 30 Ml Oral.Susp) 30 ml PO DAILY PRN PRN Reason: Constipation Nicotine (Nicotine 21 Mg Patch.Td24) 21 mg TRANSDERMA DAILY PRN PRN Reason: Nicotine Cravings Nicotine Polacrilex (Nicotine Polacrilex 2 Mg Gum) 4 mg BUCCAL Q2H PRN PRN Reason: Nicotine Cravings Omeprazole (Omeprazole 20 Mg Capsule.Dr) 20 mg PO DAILY@0630 [facility] Last Admin: 04/02/24 09:24 Dose: 20 mg Prazosin HCl (Prazosin Hcl 1 Mg Capsule) 1 mg PO BEDTIME [facility]; Protocol Last Admin: 04/01/24 22:58 Dose: 1 mg Prazosin HCl (Prazosin Hcl 5 Mg Capsule) 15 mg PO BEDTIME [facility] Last Admin: 04/01/24 22:58 Dose: 15 mg Trazodone HCl (Trazodone Hcl 100 Mg Tablet) 200 mg PO BEDTIME [facility] Last Admin: 04/01/24 20:40 Dose: 200 mg Trazodone HCl (Trazodone Hcl 50 Mg Tablet) 50 mg PO BEDTIME MRX1 PRN PRN Reason: Insomnia Last Admin: 04/01/24 22:58 Dose: 50 mg Zolpidem Tartrate (Zolpidem Tartrate 5 Mg Tablet) 10 mg PO BEDTIME [facility] Last Admin: 04/01/24 20:40 Dose: 10 mg Allergies Allergies Allergy/AdvReac Type Severity Reaction Status Date / Time carbamazepine [From TEGRETOL] AdvReac Mild Nausea and Verified 03/28/24 20:32 Vomiting topiramate [From Topamax] AdvReac Mild Nausea and Verified 03/28/24 20:32 Vomiting Assessment & Plan Assessment & Plan (1) Chronic post-traumatic stress disorder (PTSD): Status: Chronic Code(s): F43.12 - Post-traumatic stress disorder, chronic (2) Borderline personality disorder: Status: Chronic Code(s): F60.3 - Borderline personality disorder (3) Pre-op evaluation: Status: Resolved Code(s): Z01.818 - Encounter for other preprocedural examination Assessment and Plan: Patient is a 31-year-old female with a PMH significant for COPD/asthma overlap syndrome, GERD, PTSD, schizoaffective disorder, and borderline personality disorder admitted to psychiatry unit with consult placed to hospitalist services for ECT clearance. ECT pre-op evaluation Patient has undergone ECT multiple times in the past without incident EKG without ischemic changes or prolonged QTc No previous known difficulties with anesthesia Revised cardiac risk index: 0 points Based on examined patient history, there are no medical contraindications to patient undergoing ECT Thank you for allowing us to participate in the care of this patient. Signing off at this time. Please re-consult if any acute complaints or issues arise. Plan 39 yo female, history of PTSD, schizoaffective disorder, borderline personality disorder presents with CAH to run into traffic, intense flashbacks, hearing voices including those of her sister who was murdered. Possible precipitant is upcoming anniversary of sisters and pending trial. Pt reports regular medical cannabis use and symptoms of poor sleep, poor appetite with weight loss. Pt participating in regular ECT treatment at this time. Plan: Admit, One to One Special, Conditional Voluntary Status Ativan 1 mg IM on admission Collateral contact Asthma inhalers ordered, pt may need hospitalist consult if sx exacerbate Continue current regime, will discuss [place] increase with pt. Diagnostics as needed Full milieu encouraged, coping skill review, grounding skills review. Pt reports no SIBS in 5 months. Continue ECT schedule, possibly consider increase in frequency during in pt care. Pt seen chart reviewed will schedule for 04/03/24 Ronald Silva MD 04/01: ECT wednesday. no ativan after 5 wednesday. ambien left in place due to shorter half-life. calm and cooperative today, no complaints or requests. 04/02: ECT tomorrow. asking to DC after. got PRN haldol/ativan x 2 yesterday for SIB. Reason for continued inpatient stay Substantial Risk for: inability to function and rapid decompensation Time Spent With Patient Time: Total time managing care of this patient today ____ minutes.
[2024-04-02 20:00] VITALS: BP 118/70; PULSE 98; RESP 16; TEMP 36.6; O2SAT 97
[2024-04-02] MEDS: traZODone HCL 100 MG TABLET 200 MG PO (21:04)
[2024-04-02] MEDS: diphenhydrAMINE HCL 25 MG CAPSULE 100 MG PO (21:05)
[2024-04-02] MEDS: Prazosin HCL 1 MG CAPSULE PO (21:07)
[2024-04-02] MEDS: Prazosin HCL 5 MG CAPSULE 15 MG PO (21:07)
[2024-04-02] MEDS: traZODone HCL 50 MG TABLET PO ×2 (22:12→23:16)
[2024-04-02] MEDS: HaloperidoL 5 MG TABLET PO (22:12)
[2024-04-02] MEDS: chlorproMAZINE HCl 25 MG TABLET PO (22:12)
[2024-04-02] MEDS: hydrOXYzine HCL 25 MG TABLET PO (23:56)
[2024-04-03] VITALS (11 sets, daily range): BP systolic 112–159; BP diastolic 65–97; PULSE 77–109; RESP 12–20; TEMP 36.3–37; O2SAT 95–98
--- NOTE | 2024-04-03 06:46 | HO.ANESPROP2 ---
COUNT INCLUDES THE [facility] Active Problems Active Problems: All Active Problems Chronic post-traumatic stress disorder (PTSD) (Chronic) Schizoaffective disorder, depressive type (Chronic) Borderline personality disorder (Chronic) Suicidal ideation (Acute) Auditory hallucinations (Acute) Port-A-Cath in place (Acute) Intentional self-harm (Acute) COPD (chronic obstructive pulmonary disease) (Acute) Asthma (Acute) Adjustment disorder (Acute) Anxiety (Acute) Injury of ligament of right knee (Acute) Sprain of anterior cruciate ligament of right knee (Acute) Hernia (Chronic) Increased BMI (Acute) GERD (gastroesophageal reflux disease) (Acute) Past Medical History Medical History Port-A-Cath in place History of electroconvulsive therapy COVID-19 COVID-19 Sprain of left foot Chronic post-traumatic stress disorder (PTSD) COPD (chronic obstructive pulmonary disease) Increased BMI GERD (gastroesophageal reflux disease) Recurrent major depression-severe Acute post-traumatic stress disorder Injury, self-inflicted Suicidal ideation Self-harming behavior Intentional self-harm Suicidal ideation Borderline personality disorder Schizoaffective disorder Adjustment disorder Asthma Depression Anxiety PTSD (post-traumatic stress disorder) Family History Family History Mother Brain cancer Other No family history of cardiac disease Family history of problems with anesthesia: No Surgical History History of Problems with Anesthesia: No Social History Social History Household Members: Caregiver and Other Household Members Other:: [facility] staff and peers Housing: Other Housing Other:: Shelter Do you presently have visiting nurse or other home services: No Unable to assess alcohol history related to: Unable to respond Alcohol intake: never Comment: 1:1 sitter Patient Tobacco Use Status: Former Tobacco user Tobacco use type: Cigarette Cigarette Packs Per Day: 0.5 Cigarettes Per Day: 4 Years Smoked: 20 Smoked in Last 30 Days: Yes e-Cigarette/Vaping Use: Never Used Patient Interested in Nicotine Replacement: Yes Patient Given Instructions on How to Stop Smoking: No Second Hand Smoke Exposure: No Use of substances other than those prescribed or required for medical reasons: Yes Substance Use Type: Marijuana Substance Use Frequency: Weekly Last Used Substance: Days (ago) Currently Displaying Signs/Symptoms of Drug Intoxication Withdrawal: No Any prior treatment program specific to substance use: No Have you been hit, kicked, punched, or otherwise hurt by someone within the past year? If so, by whom?: No Do you feel safe in your current relationship?: No Current Relationship Is there a partner from a previous relationship who is making you feel unsafe now?: No Are you made to feel afraid or neglected: No Advance Directives: No Advance Directives Information Provided: Yes Do you have thoughts of harming others: None Do you have a plan to hurt others: No Plan Recently lost weight without trying: No Nutrition Risks: No Nutritional Risk Patient : No : No Poor oral hygiene: No service: No Sexual orientation: Straight/Heterosexual Meds Allergies Allergy/AdvReac Type Severity Reaction Status Date / Time carbamazepine [From TEGRETOL] AdvReac Mild Nausea and Verified 03/28/24 20:32 Vomiting topiramate [From Topamax] AdvReac Mild Nausea and Verified 03/28/24 20:32 Vomiting Active Medications: Current Medications Acetaminophen (Acetaminophen 325 Mg Tablet) 650 mg PO Q6H PRN PRN Reason: Headache/Pain Mild Scale (1-3) Last Admin: 04/01/24 13:36 Dose: 650 mg Al Hydroxide/Mg Hydroxide (Magnesium Hydrox/Alum Hydrox 30 Ml Oral.Susp) 30 ml PO Q6H PRN PRN Reason: Heartburn/Nausea Albuterol Sulfate (Albuterol Sulfate 90 Mcg 8 Gm Inhaler) 2 puff INHALE Q6H PRN PRN Reason: Wheezing Benztropine Mesylate (Benztropine Mesylate 0.5 Mg Tablet) 0.5 mg PO BID [facility] Last Admin: 04/02/24 21:09 Dose: 0.5 mg Chlorpromazine HCl (Chlorpromazine Hcl 25 Mg Tablet) 25 mg PO BEDTIME PRN PRN Reason: grounding support, sleep Last Admin: 04/02/24 22:12 Dose: 25 mg Clonidine HCl (Clonidine Hcl 0.1 Mg Tablet) 0.1 mg PO TID [facility]; Protocol Last Admin: 04/02/24 21:08 Dose: 0.1 mg Diphenhydramine HCl (Diphenhydramine Hcl 25 Mg Capsule) 100 mg PO BEDTIME [place] Last Admin: 04/02/24 21:05 Dose: 100 mg Duloxetine HCl (Duloxetine Hcl 60 Mg Capsule.Dr) 60 mg PO DAILY [facility] Last Admin: 04/02/24 09:23 Dose: 60 mg Fluticasone Propionate (Fluticasone Propionate 100 Mcg Blst.W.Dev) 2 puff INHALE RBID [facility] Last Admin: 04/02/24 21:12 Dose: Not Given Haloperidol (Haloperidol 5 Mg Tablet) 5 mg PO TID PRN PRN Reason: Agitation Last Admin: 04/02/24 22:12 Dose: 5 mg Haloperidol Decanoate (Haloperidol Decanoate 50 Mg/Ml Vial) 75 mg IM Q30D [facility] Hydroxyzine HCl (Hydroxyzine Hcl 25 Mg Tablet) 25 mg PO Q6H PRN PRN Reason: Anxiety Last Admin: 04/02/24 23:56 Dose: 25 mg Lactated Ringer's (Lr) 1,000 mls @ 50 mls/hr IVCONT .Q20H [facility] [place] Carbonate ([place] Carbonate 300 Mg Capsule) 300 mg PO BID [facility] Last Admin: 04/02/24 21:12 Dose: Not Given Loratadine (Loratadine 10 Mg Tablet) 10 mg PO DAILY [facility] Last Admin: 04/02/24 09:23 Dose: 10 mg Lorazepam (Lorazepam 1 Mg Tablet) 1 mg PO TID PRN PRN Reason: Anxiety Last Admin: 04/01/24 22:58 Dose: 1 mg Magnesium Hydroxide (Milk Of Magnesia 30 Ml Oral.Susp) 30 ml PO DAILY PRN PRN Reason: Constipation Nicotine (Nicotine 21 Mg Patch.Td24) 21 mg TRANSDERMA DAILY PRN PRN Reason: Nicotine Cravings Nicotine Polacrilex (Nicotine Polacrilex 2 Mg Gum) 4 mg BUCCAL Q2H PRN PRN Reason: Nicotine Cravings Omeprazole (Omeprazole 20 Mg Capsule.Dr) 20 mg PO DAILY@0630 [facility] Last Admin: 04/02/24 09:24 Dose: 20 mg Prazosin HCl (Prazosin Hcl 1 Mg Capsule) 1 mg PO BEDTIME [facility]; Protocol Last Admin: 04/02/24 21:07 Dose: 1 mg Prazosin HCl (Prazosin Hcl 5 Mg Capsule) 15 mg PO BEDTIME [facility] Last Admin: 04/02/24 21:07 Dose: 15 mg Trazodone HCl (Trazodone Hcl 100 Mg Tablet) 200 mg PO BEDTIME [facility] Last Admin: 04/02/24 21:04 Dose: 200 mg Trazodone HCl (Trazodone Hcl 50 Mg Tablet) 50 mg PO BEDTIME MRX1 PRN PRN Reason: Insomnia Last Admin: 04/02/24 23:16 Dose: 50 mg Zolpidem Tartrate (Zolpidem Tartrate 5 Mg Tablet) 10 mg PO BEDTIME [facility] Last Admin: 04/02/24 21:12 Dose: Not Given Home Medications ?Medication ?Instructions ?Recorded ?Confirmed ?Last Taken ?Type albuterol sulfate 90 mcg/actuation 2 puff inhalation Q6H PRN Wheezing 08/14/22 03/28/24 03/13/23 History aerosol inhaler (ProAir HFA) diphenhydramine HCl 50 mg capsule 2 cap PO BEDTIME 08/14/22 03/28/24 02/15/24 20:00 History (Banophen) haloperidol 5 mg tablet 1 tab PO TID PRN Agitation 08/14/22 03/28/24 03/13/23 History omeprazole 20 mg tablet,delayed 20 mg PO DAILY@0630 08/14/22 03/28/24 02/15/24 06:30 History release zolpidem 10 mg tablet 1 tab PO BEDTIME 08/14/22 03/28/24 02/15/24 20:00 History benztropine 0.5 mg tablet 1 tab PO BID 10/26/22 03/28/24 02/15/24 17:00 History clonidine HCl 0.1 mg tablet 1 tab PO TID 10/26/22 03/28/24 02/15/24 20:00 History duloxetine 60 mg capsule,delayed 1 cap PO DAILY 10/26/22 03/28/24 02/15/24 07:00 History release haloperidol decanoate 100 mg/mL 75 mg IM Q4W 10/26/22 03/28/24 03/08/24 History intramuscular solution lithium carbonate 300 mg tablet 300 mg PO BID 10/26/22 03/28/24 02/15/24 20:00 History lorazepam 1 mg tablet 1 mg PO TID PRN Anxiety 03/25/23 03/28/24 Unknown History prazosin 1 mg capsule 1 mg PO BEDTIME 06/17/23 03/28/24 02/15/24 20:00 History trazodone 100 mg tablet 200 mg PO BEDTIME 06/17/23 03/28/2424 20:00 History cetirizine 10 mg tablet 10 mg PO DAILY 02/16/24 03/28/24 02/15/24 08:00 History prazosin 5 mg capsule 15 mg PO BEDTIME 02/16/24 03/28/24 02/15/24 20:00 History Exam Height,Weight and Vital Signs: Height 5 ft Weight 90.718 kg Last Vital Signs Temp 97.5 F 04/03/24 05:31 Pulse 98 04/03/24 05:31 Resp 16 04/03/24 05:31 BP 119/80 04/03/24 05:31 Pulse Ox 97 04/03/24 05:31 O2 Del Method Room Air 04/02/24 20:00 Pertinent Lab Results Pertinent Lab Results: Laboratory Tests 03/28/24 03/28/24 03/28/24 20:47 21:11 21:37 WBC 7.0 RBC 3.83 L Hgb 11.7 L Hct 35.1 L MCV 91.6 MCH 30.5 MCHC 33.3 RDW 13.4 Plt Count 202 MPV 11.5 Immature Gran % (Auto) 0.3 Neut % (Auto) 73.2 H Lymph % (Auto) 20.7 Weber % (Auto) 5.2 Eos % (Auto) 0.3 Baso % (Auto) 0.3 Lymph # (Auto) 1.5 Weber # (Auto) 0.4 Eos # (Auto) 0.0 Baso # (Auto) 0.0 Abs Immat Gran (auto) 0.02 Absolute Neuts (auto) 5.1 Absolute Nucleated RBC 0.000 Nucleated RBC % (auto) 0.0 Smear Tech's Comments VERIFIED Sodium 136 Potassium 4.1 Chloride 105 Carbon Dioxide 23 Anion Gap 12 BUN 4 L Creatinine 0.81 Estim Creat Clear Calc 94.5 Estimated GFR > 60 Random Glucose 100 Calcium 9.8 Total Bilirubin 0.3 AST 13 ALT 8 Alkaline Phosphatase 60 Total Protein 7.4 Albumin 4.4 Urine Color Yellow Urine Appearance Clear Urine pH 7.0 Ur Specific [place] <= 1.005 Urine Protein Negative Urine Glucose (UA) Negative Urine Ketones Negative Urine Blood Negative Urine Nitrite Negative Ur Leukocyte Esterase Negative Urine Test NEGATIVE Urine Opiates Screen Not Detected Ur Buprenorphine Scrn Not Detected Ur Oxycodone Screen Not Detected Urine Methadone Screen Not Detected Urine Fentanyl Screen Not Detected Ur Barbiturates Screen Not Detected Ur Phencyclidine Scrn Not Detected Ur Amphetamines Screen Not Detected U Benzodiazepines Scrn Not Detected [place] 0.54 L Urine Cocaine Screen Not Detected U Marijuana (THC) Screen POSITIVE H Ethyl Alcohol < 10 Airway Mallampati Class: II (missing a couple) TM Dist: >3cm Neck ROM: Full Heart: rrr Lungs: cta Assessment and Plan Assessment Anesthesia Assessment: Anesthesia Plan Discussed and Chart Reviewed Final Anesthetic Review Family History of Problems with Anesthesia: No History of Problems with Anesthesia: No NPO: Yes ASA Class: III Final Preanesthetic Review: No Changes in Pt Med Stat, Meds/Allgs Chart Reviewed and Consent Obtained/Reviewed Patient Risk: Intermediate Procedure Risk: Intermediate Anesthetic Plan Anesthetic Plan: GA Disposition: Standard PACU
[2024-04-03] MEDS: Lactated Ringers 1,000 ML 50 ML IVCONT (06:57)
--- NOTE | 2024-04-03 07:03 | MHC.SHP ---
Pre-Procedural Eval Section A - 24 Hr Update-Section A only Date of Service: 04/03/24 The patient is an INPATIENT: Yes Changes since office visit: No Cold of Flu in the past 2 weeks, No New Medical Problems, No Changes in Medication and No Patient answered all questions The patient has been examined within 24 hours of the surgical procedure. The History & Physical has been completed within 30 days and I have reviewed it.: Yes Section B - Complete if H&P > 30 days Chief Complaint: schizoaffective disorder, depressed Details of Present Illness: Reports exacerbation of anxiety and dysphoria in the context of famlily problems, admitted for safety, no self-harming behavior Relevant Family History (Specify if Yes): Yes Relevant Social History: None Present Medications: see Short Stay Collaborative assessment Medical History: No relevant PMH Allergies: Allergies Allergy/AdvReac Type Severity Reaction Status Date / Time carbamazepine [From TEGRETOL] AdvReac Mild Nausea and Verified 03/28/24 20:32 Vomiting topiramate [From Topamax] AdvReac Mild Nausea and Verified 03/28/24 20:32 Vomiting Review of Systems Sugical H&P ROS: Negative: Constitution, Cardiovascular, Respiratory, Neurological, Psychiatric, Hem-Onc, Allergic/Immunologic, Gastrointestinal, Genitourinary, Musculoskeletal, Integumentary, Endocrine and Eyes/Ears/Nose/Throat Exam Surgical H&P Exam: Normal: HEENT, Normal: Heart, Normal: Lungs, Normal: Extremities, Normal: Abdomen, Normal: Skin and Normal: Neurological Plan Diagnosis/Plan: Unchanged I have reviewed the history and physical and performed a pertinent physical examination on my patient. No changes have occurred unless specified. Time Spent With Patient Time: Total time managing care of this patient today ____ minutes.
--- NOTE | 2024-04-03 07:05 | HO.ECTPROC ---
ECT Procedure Note Diagnosis/Treatment Date of Service: 04/03/24 Diagnosis: Schizoaffective Disorder Treatment: Maintenance Interval Clinical Notes: The patient is currently inpatient after decompensating due to family issues. Currently, she denies suicidal thoughts, no self-harming behavior. No side effects with previous ECT. No changes on current treatment. ECT done as usual, no complications, woke up well. Time: Total time managing care of this patient today __30__ minutes. ECT Settings Device: THYMATRON DGx Electrode Placement: Bitemporal Program/Pulse Width: 0.50 Energy Percent: 100 Seizure Duration By EEG (in seconds): 17 By Motor Observation (in seconds): 0 Medications Administration General Anesthetic: Etomidate (17) Muscle Relaxant: Succinylcholine (100) Airway Management Airway Management: Bag Mask Ventilation Treatment Recommendations No Changes Recommended: No change Pt Tolerated Procedure w/o Issue: Yes
[2024-04-03] MEDS: 0.9 % Sodium Chloride Flush 10 ML SYRINGE 5 ML IVFLUSH (08:09)
[2024-04-03] MEDS: Heparin Sodium,Porcine Flush 500 UNIT/5 ML SYRINGE IVFLUSH (08:10)
[2024-04-03] MEDS: Lithium Carbonate 300 MG CAPSULE PO ×2 (08:57→21:09)
[2024-04-03] MEDS: Benztropine Mesylate 0.5 MG TABLET PO ×2 (08:57→21:23)
[2024-04-03] MEDS: Omeprazole 20 MG CAPSULE.DR PO (08:57)
[2024-04-03] MEDS: Loratadine 10 MG TABLET PO (08:57)
[2024-04-03] MEDS: cloNIDine HCL 0.1 MG TABLET PO ×3 (08:57→21:13)
[2024-04-03] MEDS: Milk of Magnesia 30 ML ORAL.SUSP PO (08:57)
[2024-04-03] MEDS: Fluticasone Propionate 100 MCG BLST.W.DEV 2 PUFF INHALE (08:57)
[2024-04-03] MEDS: DULoxetine HCl 60 MG CAPSULE.DR PO (08:57)
--- NOTE | 2024-04-03 10:42 | P.PNPSI_ITS ---
Subjective Subjective Date of Service: 04/03/24 Reason For Visit: schizoaffective disorder, depressed Subjective Notes: Conditional Voluntary Interim History: Reviewed with Dr. Silva. Pt received ECT today. Pt reports feeling good today; pt stated, I'm not feeling anxious or depressed. I want to go home. I always have voices but it's tolerable . Pt denies SI/HI/VH. Medication Compliance: Yes Side effects from medications: No Attending Groups: Intermittent Review of Systems Constitutional: Reports as per HPI Eyes: Reports as per HPI Reports as per HPI Cardiovascular: Reports as per HPI Respiratory: Reports as per HPI Gastrointestinal: Reports as per HPI Genitourinary: Reports as per HPI Musculoskeletal: Reports as per HPI Skin/Breast: Reports as per HPI Reports as per HPI Psychiatric: Reports as per HPI Endocrine: Reports as per HPI Hematologic/Lymphatic: Reports as per HPI Allergic/Immunologic: Reports as per HPI Mental Status Exam Mental Status Exam Narrative: Pt is alert and oriented; behavior is cooperative and calm; dressed in casual attire; mood is described as good ; eye contact appropriate; Speech is normal rate, volume and not pressured; thought process is organized; Thought content is on tx; denies SI/HI/VH. Pt reports auditory hallucinations that are tolerable . Diagnostics Vital Signs (24Hr): Vital Signs - 24 hr 04/02/24 15:30 04/02/24 20:00 04/03/24 05:31 Temperature 97.9 F 97.5 F Pulse Rate 98 98 Respiratory Rate 16 16 Blood Pressure 128/74 118/70 119/80 Pulse Oximetry 97 97 Oxygen Delivery Method Room Air Oxygen Flow Rate 04/03/24 06:49 04/03/24 07:25 04/03/24 07:30 Temperature 97.3 F 97.9 F Pulse Rate 92 97 100 Respiratory Rate 12 13 12 Blood Pressure 134/86 159/97 H 136/88 Pulse Oximetry 98 98 96 Oxygen Delivery Method Room Air Nasal Cannula with ETCO2 Nasal Cannula with ETCO2 Oxygen Flow Rate 2 2 04/03/24 07:35 04/03/24 07:40 04/03/24 07:54 Temperature Pulse Rate 98 98 108 H Respiratory Rate 19 20 20 Blood Pressure 126/87 136/84 130/96 H Pulse Oximetry 97 97 95 Oxygen Delivery Method Nasal Cannula with ETCO2 Nasal Cannula with ETCO2 Room Air Oxygen Flow Rate 2 2 04/03/24 08:09 04/03/24 08:43 Temperature 97.9 F 98.6 F Pulse Rate 106 H 109 H Respiratory Rate 16 16 Blood Pressure 137/83 130/66 Pulse Oximetry 97 97 Oxygen Delivery Method Room Air Room Air Oxygen Flow Rate BMI result Body Mass Index 39.1 Labs 03/28/24 21:37 03/28/24 21:11 Medications Medications Current Medications Acetaminophen (Acetaminophen 325 Mg Tablet) 650 mg PO Q6H PRN PRN Reason: Headache/Pain Mild Scale (1-3) Last Admin: 04/01/24 13:36 Dose: 650 mg Al Hydroxide/Mg Hydroxide (Magnesium Hydrox/Alum Hydrox 30 Ml Oral.Susp) 30 ml PO Q6H PRN PRN Reason: Heartburn/Nausea Albuterol Sulfate (Albuterol Sulfate 90 Mcg 8 Gm Inhaler) 2 puff INHALE Q6H PRN PRN Reason: Wheezing Benztropine Mesylate (Benztropine Mesylate 0.5 Mg Tablet) 0.5 mg PO BID [facility] Last Admin: 04/03/24 08:57 Dose: 0.5 mg Chlorpromazine HCl (Chlorpromazine Hcl 25 Mg Tablet) 25 mg PO BEDTIME PRN PRN Reason: grounding support, sleep Last Admin: 04/02/24 22:12 Dose: 25 mg Clonidine HCl (Clonidine Hcl 0.1 Mg Tablet) 0.1 mg PO TID [facility]; Protocol Last Admin: 04/03/24 08:57 Dose: 0.1 mg Diphenhydramine HCl (Diphenhydramine Hcl 25 Mg Capsule) 100 mg PO BEDTIME [facility] Last Admin: 04/02/24 21:05 Dose: 100 mg Duloxetine HCl (Duloxetine Hcl 60 Mg Capsule.Dr) 60 mg PO DAILY [facility] Last Admin: 04/03/24 08:57 Dose: 60 mg Fluticasone Propionate (Fluticasone Propionate 100 Mcg Blst.W.Dev) 2 puff INHALE RBID [facility] Last Admin: 04/03/24 08:57 Dose: 2 puff Haloperidol (Haloperidol 5 Mg Tablet) 5 mg PO TID PRN PRN Reason: Agitation Last Admin: 04/02/24 22:12 Dose: 5 mg Haloperidol Decanoate (Haloperidol Decanoate 50 Mg/Ml Vial) 75 mg IM Q30D [facility] Hydroxyzine HCl (Hydroxyzine Hcl 25 Mg Tablet) 25 mg PO Q6H PRN PRN Reason: Anxiety Last Admin: 04/02/24 23:56 Dose: 25 mg [place] Carbonate ([place] Carbonate 300 Mg Capsule) 300 mg PO BID [facility] Last Admin: 04/03/24 08:57 Dose: 300 mg Loratadine (Loratadine 10 Mg Tablet) 10 mg PO DAILY [facility] Last Admin: 04/03/24 08:57 Dose: 10 mg Lorazepam (Lorazepam 1 Mg Tablet) 1 mg PO TID PRN PRN Reason: Anxiety Last Admin: 04/01/24 22:58 Dose: 1 mg Magnesium Hydroxide (Milk Of Magnesia 30 Ml Oral.Susp) 30 ml PO DAILY PRN PRN Reason: Constipation Last Admin: 04/03/24 08:57 Dose: 30 ml Nicotine (Nicotine 21 Mg Patch.Td24) 21 mg TRANSDERMA DAILY PRN PRN Reason: Nicotine Cravings Nicotine Polacrilex (Nicotine Polacrilex 2 Mg Gum) 4 mg BUCCAL Q2H PRN PRN Reason: Nicotine Cravings Omeprazole (Omeprazole 20 Mg Capsule.Dr) 20 mg PO DAILY@0630 [facility] Last Admin: 04/03/24 08:57 Dose: 20 mg Prazosin HCl (Prazosin Hcl 1 Mg Capsule) 1 mg PO BEDTIME [facility]; Protocol Last Admin: 04/02/24 21:07 Dose: 1 mg Prazosin HCl (Prazosin Hcl 5 Mg Capsule) 15 mg PO BEDTIME [facility] Last Admin: 04/02/24 21:07 Dose: 15 mg Trazodone HCl (Trazodone Hcl 100 Mg Tablet) 200 mg PO BEDTIME [facility] Last Admin: 04/02/24 21:04 Dose: 200 mg Trazodone HCl (Trazodone Hcl 50 Mg Tablet) 50 mg PO BEDTIME MRX1 PRN PRN Reason: Insomnia Last Admin: 04/02/24 23:16 Dose: 50 mg Zolpidem Tartrate (Zolpidem Tartrate 5 Mg Tablet) 10 mg PO BEDTIME [facility] Last Admin: 04/02/24 21:12 Dose: Not Given Allergies Allergies Allergy/AdvReac Type Severity Reaction Status Date / Time carbamazepine [From TEGRETOL] AdvReac Mild Nausea and Verified 03/28/24 20:32 Vomiting topiramate [From Topamax] AdvReac Mild Nausea and Verified 03/28/24 20:32 Vomiting Assessment & Plan Assessment & Plan (1) Chronic post-traumatic stress disorder (PTSD): Status: Chronic Code(s): F43.12 - Post-traumatic stress disorder, chronic (2) Borderline personality disorder: Status: Chronic Code(s): F60.3 - Borderline personality disorder (3) Pre-op evaluation: Status: Resolved Code(s): Z01.818 - Encounter for other preprocedural examination Assessment and Plan: Patient is a 31-year-old female with a PMH significant for COPD/asthma overlap syndrome, GERD, PTSD, schizoaffective disorder, and borderline personality disorder admitted to [facility] psychiatry unit with consult placed to hospitalist services for ECT clearance. ECT pre-op evaluation Patient has undergone ECT multiple times in the past without incident EKG without ischemic changes or prolonged QTc No previous known difficulties with anesthesia Revised cardiac risk index: 0 points Based on examined patient history, there are no medical contraindications to patient undergoing ECT Thank you for allowing us to participate in the care of this patient. Signing off at this time. Please re-consult if any acute complaints or issues arise. Plan 39 yo female, history of PTSD, schizoaffective disorder, borderline personality disorder presents with CAH to run into traffic, intense flashbacks, hearing voices including those of her sister who was murdered. Possible precipitant is upcoming anniversary of sisters and pending trial. Pt reports regular medical cannabis use and symptoms of poor sleep, poor appetite with weight loss. Pt participating in regular ECT treatment at this time. Plan: Admit, One to One Special, Conditional Voluntary Status Ativan 1 mg IM on admission Collateral contact Asthma inhalers ordered, pt may need hospitalist consult if sx exacerbate Continue current regime, will discuss Philip increase with pt. Diagnostics as needed Full milieu encouraged, coping skill review, grounding skills review. Pt reports no SIBS in 5 months. Continue ECT schedule, possibly consider increase in frequency during in pt care. Pt seen chart reviewed will schedule for 04/03/24 Ronald Silva MD 04/01: ECT wednesday. no ativan after 5 wednesday. ambien left in place due to shorter half-life. calm and cooperative today, no complaints or requests. 04/02: ECT tomorrow. asking to DC after. got PRN haldol/ativan x 2 yesterday for SIB. 04/03: Pt received ECT today. Pt reports feeling good today; pt stated, I'm not feeling anxious or depressed. I want to go home. I always have voices but it's tolerable . Pt denies SI/HI/VH. Patient educated on: diagnosis, medication risk/benefits and therapeutic strategies Informed Consent: understands Reason for continued inpatient stay Substantial Risk for: stable for discharge Time Spent With Patient Time: Total time managing care of this patient today _20___ minutes.
[2024-04-03] MEDS: Zolpidem Tartrate 5 MG TABLET 10 MG PO (21:09)
[2024-04-03] MEDS: diphenhydrAMINE HCL 25 MG CAPSULE 100 MG PO (21:10)
[2024-04-03] MEDS: chlorproMAZINE HCl 25 MG TABLET PO (21:11)
[2024-04-03] MEDS: traZODone HCL 100 MG TABLET 200 MG PO (21:11)
[2024-04-03] MEDS: LORazepam 1 MG TABLET PO (21:12)
[2024-04-03] MEDS: Prazosin HCL 1 MG CAPSULE PO (21:12)
[2024-04-03] MEDS: Prazosin HCL 5 MG CAPSULE 15 MG PO (21:13)
--- NOTE | 2024-04-04 08:44 | HO.POSTANES ---
Post Anesthesia Evaluation Post Anesthesia Evaluation Date of Service: 04/04/24 Anesthesia: General Mental Status: Awake Pain Control: Satisfactory Nausea/Vomiting: None Hydration: Adequate Anesthesia-Related Issues: No Anes. Related Issues
--- NOTE | 2024-04-04 08:47 | PM.PSYDC ---
DS: Providers Provider Date of Service: 04/04/24 Date of admission: 03/30/24 13:04 Date of discharge: 04/04/24 Primary care physician: Carroll Gaviria MD Admitting clinician: Maryam Bardales Attending physician on admission: Abdoul Silva Consults: 03/31/24 10:56 Consult to Hospitalist Routine Comment: Consulting Provider: Hospitalist Reason For Exam: asthma, pt reporting current regime w/poor sx mgt 03/31/24 10:58 Consult to Psychiatry Routine Consulting Provider: Psych Covering Reason for consultation: Pt asking to consider increase in weekly ECT rx to 2 Has provider been notified: No 03/31/24 13:31 Consult to Hospitalist Routine Comment: Consulting Provider: Hospitalist Reason For Exam: preop ect Attending physician on discharge: Abdoul Silva Discharging clinician: Leelee Masters DS: Diagnosis Discharge Diagnosis (1) Chronic post-traumatic stress disorder (PTSD): Status: Chronic (2) Borderline personality disorder: Status: Chronic (3) Pre-op evaluation: Status: Resolved DS: Medications Discharge Medications Home Medications: Home Medications ?Medication ?Instructions ?Recorded ?Confirmed albuterol sulfate 90 mcg/actuation 2 puff inhalation Q6H PRN Wheezing 08/14/22 03/28/24 aerosol inhaler (ProAir HFA) diphenhydramine HCl 50 mg capsule 2 cap PO BEDTIME 08/14/22 03/28/24 (Banophen) haloperidol 5 mg tablet 1 tab PO TID PRN Agitation 08/14/22 03/28/24 omeprazole 20 mg tablet,delayed 20 mg PO DAILY@0630 08/14/22 03/28/24 release zolpidem 10 mg tablet 1 tab PO BEDTIME 08/14/22 03/28/24 benztropine 0.5 mg tablet 1 tab PO BID 10/26/22 03/28/24 clonidine HCl 0.1 mg tablet 1 tab PO TID 10/26/22 03/28/24 duloxetine 60 mg capsule,delayed 1 cap PO DAILY 10/26/22 03/28/24 release haloperidol decanoate 100 mg/mL 75 mg IM Q4W 10/26/22 03/28/24 intramuscular solution lithium carbonate 300 mg tablet 300 mg PO BID 10/26/22 03/28/24 lorazepam 1 mg tablet 1 mg PO TID PRN Anxiety 03/25/23 03/28/24 prazosin 1 mg capsule 1 mg PO BEDTIME 06/17/23 03/28/24 trazodone 100 mg tablet 200 mg PO BEDTIME 06/17/23 03/28/24 cetirizine 10 mg tablet 10 mg PO DAILY 02/16/24 03/28/24 prazosin 5 mg capsule 15 mg PO BEDTIME 02/16/24 03/28/24 Previous Rx's ?Medication ?Instructions ?Recorded acetaminophen 325 mg tablet 650 mg (2 x 325 mg) PO Q6H PRN 02/25/24 Headache/Pain Mild Scale (1-3) #0 tabs Mental Status Exam Mental Status Exam Narrative: Pt is alert and oriented; behavior is cooperative and calm; dressed in casual attire; mood is described as good ; eye contact appropriate; Speech is normal rate, volume and not pressured; thought process is organized; Thought content is on tx; denies SI/HI/VH. Pt reports auditory hallucinations that are tolerable . Data Data Completed and Pending Completed studies during hospitalization [Text1]: 03/28/24 03/28/24 03/28/24 20:47 21:11 21:37 WBC 7.0 RBC 3.83 L Hgb 11.7 L Hct 35.1 L MCV 91.6 MCH 30.5 MCHC 33.3 RDW 13.4 Plt Count 202 MPV 11.5 Immature Gran % (Auto) 0.3 Neut % (Auto) 73.2 H Lymph % (Auto) 20.7 Kay % (Auto) 5.2 Eos % (Auto) 0.3 Baso % (Auto) 0.3 Lymph # (Auto) 1.5 Kay # (Auto) 0.4 Eos # (Auto) 0.0 Baso # (Auto) 0.0 Abs Immat Gran (auto) 0.02 Absolute Neuts (auto) 5.1 Absolute Nucleated RBC 0.000 Nucleated RBC % (auto) 0.0 Smear Tech's Comments VERIFIED Sodium 136 Potassium 4.1 Chloride 105 Carbon Dioxide 23 Anion Gap 12 BUN 4 L Creatinine 0.81 Estim Creat Clear Calc 94.5 Estimated GFR > 60 Random Glucose 100 Calcium 9.8 Total Bilirubin 0.3 AST 13 ALT 8 Alkaline Phosphatase 60 Total Protein 7.4 Albumin 4.4 Urine Color Yellow Urine Appearance Clear Urine pH 7.0 Ur Specific [place] <= 1.005 Urine Protein Negative Urine Glucose (UA) Negative Urine Ketones Negative Urine Blood Negative Urine Nitrite Negative Ur Leukocyte Esterase Negative Urine Test NEGATIVE Urine Opiates Screen Not Detected Ur Buprenorphine Scrn Not Detected Ur Oxycodone Screen Not Detected Urine Methadone Screen Not Detected Urine Fentanyl Screen Not Detected Ur Barbiturates Screen Not Detected Ur Phencyclidine Scrn Not Detected Ur Amphetamines Screen Not Detected U Benzodiazepines Scrn Not Detected [place] 0.54 L Urine Cocaine Screen Not Detected U Marijuana (THC) Screen POSITIVE H Ethyl Alcohol < 10 DS: Summary Hospital Course Hospital Course: 39 yo female, history of PTSD, schizoaffective disorder, borderline personality disorder, to ER via section XII from her correction after an assessment appointment with Jazlyn. Pt reported scarey voices , voices of her sister, intense flashbacks which she reports have intensified. She reports CAH to run into traffic. Probable precipitant is the anniversary of her sister's murder and upcoming trial. She reports sleep and appetite disturbance with weight loss. She reports she has been taking her medications, however is disappointed that they are not working as she believes they should be. She also reports regular ECT. When seen, pt is with a one to one special who remains for our meeting. She reports she has had a period of time without SIBS and I am trying . She reports sleep is her best intervention currently to break a cycle of self destruction and she asks for injection to promote assistance to sleep briefly for relief. Diagnostics reviewed, RBC, HGB, HCT are lowered, [place] 0.54 EKG QTc 421, ?LAE with sinus arrythmia and low voltage QRS 39 yo female, history of PTSD, schizoaffective disorder, borderline personality disorder presents with CAH to run into traffic, intense flashbacks, hearing voices including those of her sister who was murdered. Possible precipitant is upcoming anniversary of sisters and pending trial. Pt reports regular medical cannabis use and symptoms of poor sleep, poor appetite with weight loss. Pt participating in regular ECT treatment at this time. Plan: Admit, One to One Special, Conditional Voluntary Status Ativan 1 mg IM on admission Collateral contact Asthma inhalers ordered, pt may need hospitalist consult if sx exacerbate Continue current regime, will discuss [place] increase with pt. Diagnostics as needed Full milieu encouraged, coping skill review, grounding skills review. Pt reports no SIBS in 5 months. Continue ECT schedule, possibly consider increase in frequency during in pt care. ECT wednesday. no ativan after [address]nesday. ambien left in place due to shorter half-life. calm and cooperative today, no complaints or requests. ECT tomorrow. asking to DC after. got PRN haldol/ativan x 2 yesterday for SIB. Pt received ECT today. Pt reports feeling good today; pt stated, I'm not feeling anxious or depressed. I want to go home. I always have voices but it's tolerable . Pt denies SI/HI/VH. Patient reports feeling good and ready to go home ; pt denies SI/HI/VH. She reports AH but are low . Pt reports she plans on following up with outpatient providers. Time spent discussing smoking cessation with patient: 3 to 10 minutes Status at Discharge Cognitive/behavioral status at discharge: Patient was interviewed prior to discharge and found to be fully oriented and without SI or HI. Patient has insight and demonstrates good judgment in terms of wanting to pursue treatment. Patient has a safety plan that includes presenting to the closest ER or calling 911 if feeling unsafe. Functional status at discharge: independent ambulation Overall status at discharge: patient is back to baseline Time Spent with Patient Time attestation: Total time managing care of this patient today _20___ minutes. Time spent: Less than 30 minutes Discharge Plan Discharge Anticipated Discharge Date/Time: 04/04/24 11:00 Patient Disposition: Home, Self-Care Discharge Diagnosis: Schizoaffective d/o, PTSD, Borderline personality d/o Referrals: [facility] Intake: [facility] [Other] - 04/28/24 9:00 am (Intake is in person and then you start the program the next day (Wednesday). Follow silver signs with blue writing to [facility]; take a right after the ED, then a left at the stop sign/crosswalk, drive into parking lot C and it is the brick building attached to the red trailer. Use the walkway between the brick building on the right and speech & hearing on the left. When entering, take a left and walk down the helms, then a right and you will see a door with printed instructions on it. ) Psychiatrist: Dr. Kemi Lovelace ([facility]) [Other] - 04/11/24 3:00 pm (Appointment is in person ) Therapist: Arleen Bae ([facility]) [Other] - 1 Week [facility] [Provider Group] - 1 Week ([facility] was added to patients chart. Please call [phone] for follow up appt. ) Discharge Medications: New fluticasone propionate 100 mcg/actuation Blister With Device 1 inh inhalation RBID Qty: 0 0RF Continued haloperidol 5 mg tablet 1 tab PO TID PRN (Reason: Agitation) diphenhydramine HCl [Banophen] 50 mg capsule 2 cap PO BEDTIME zolpidem 10 mg tablet 1 tab PO BEDTIME albuterol sulfate [ProAir HFA] 90 mcg/actuation HFA aerosol inhaler 2 puff inhalation Q6H PRN (Reason: Wheezing) omeprazole 20 mg Tablet,Delayed Release (Dr/Ec) 20 mg PO DAILY@0630 lithium carbonate 300 mg tablet 300 mg PO BID clonidine HCl 0.1 mg tablet 1 tab PO TID benztropine 0.5 mg tablet 1 tab PO BID haloperidol decanoate 100 mg/mL solution 75 mg IM Q4W Rx Instructions: NEXT DOSE: 07/09/23 duloxetine 60 mg capsule,delayed release(DR/EC) 1 cap PO DAILY prazosin 1 mg capsule 1 mg PO BEDTIME Protocol: Hold for SBP< HOLD for SBP < : 90 trazodone 100 mg tablet 200 mg PO BEDTIME acetaminophen 325 mg Tablet 650 mg PO Q6H PRN (Reason: Headache/Pain Mild Scale (1-3)) Qty: 0 0RF lorazepam 1 mg tablet 1 mg PO TID PRN (Reason: Anxiety) prazosin 5 mg capsule 15 mg PO BEDTIME cetirizine 10 mg tablet 10 mg PO DAILY Discharge Orders: Discharge Order (Routine); Ordered 04/04/24 Ordered By: Leelee Masters Diet: Regular diet Activity on Discharge: As tolerated Stand Alone Forms: Patient Portal Discharge page, Community Support Print Language: Canadian Care Plan Goals: Maintain mood and safe behaviors Take medications as prescribed Practice coping skills Continue with outpatient providers and reach out to them as needed Health Concerns: Mood stability and behaviors Plan of Treatment: Follow up with your PCP, psychiatric provider and other outpatient providers regarding above concerns Take medications as prescribed Assessment: Patient was interviewed prior to discharge and found to be fully oriented and without SI or HI. Patient has insight and demonstrates good judgment in terms of wanting to pursue treatment. Patient has a safety plan that includes presenting to the closest ER or calling 911 if feeling unsafe.
[2024-04-04 08:55] VITALS: BP 93/61; PULSE 77; RESP 16; O2SAT 97
[2024-04-04] MEDS: DULoxetine HCl 60 MG CAPSULE.DR PO (09:05)
[2024-04-04] MEDS: Benztropine Mesylate 0.5 MG TABLET PO (09:05)
[2024-04-04] MEDS: Omeprazole 20 MG CAPSULE.DR PO (09:05)
[2024-04-04] MEDS: Fluticasone Propionate 100 MCG BLST.W.DEV 2 PUFF INHALE (09:05)
[2024-04-04] MEDS: Lithium Carbonate 300 MG CAPSULE PO (09:06)
[2024-04-04] MEDS: cloNIDine HCL 0.1 MG TABLET PO (09:06)
[2024-04-04] MEDS: Loratadine 10 MG TABLET PO (09:06)
[2024-04-04] MEDS: LORazepam 1 MG TABLET PO (09:07)
== END 2024-04-04 11:35 | disposition home or self-care (01) | DRG 750 ==
LOC: HO.ED 03-30 12:30 → HO.PADLT16 03-30 13:05
PROVIDERS: Psychiatry & Neurology Psychiatry; Admitting Provider Clinical Nurse Specialist Psychiatric/Mental Health, Adult; Emergency Provider Emergency Medicine; PCP Pediatrics; Responsible Provider Registered Nurse; Visit Provider Psychiatry & Neurology Psychiatry
PROC: GZB4ZZZ Other Electroconvulsive Therapy (ICD-10-PCS; CPT 90870; principal; 2024-04-03 07:00)
DX: F25.1 Schizoaffective disorder, depressive type (principal); F43.12 Post-traumatic stress disorder, chronic; J44.9 Chronic obstructive pulmonary disease, unspecified; F60.3 Borderline personality disorder; Z63.4 Disappearance and death of family member; Z87.891 Personal history of nicotine dependence; Z79.899 Other long term (current) drug therapy
CPT/HCPCS: 36415; 80053; 80178; 80307; 81003; 81025; 85025; 90870; 93005; 99285; J0330; J1596; J1642; J1805; J2060; J2405; J2704; J7120; S9485

== ENCOUNTER → 2024-03-29 10:03 | Outpatient (BNV) | payer OTHER, SELFPAY | PROVIDERS: Emergency Provider Emergency Medicine; PCP Nurse Practitioner Family; Visit Provider Internal Medicine | DX: R94.31 Abnormal electrocardiogram [ECG] [EKG] (principal) | CPT/HCPCS: 93010 ==

== ENCOUNTER → 2024-03-30 13:04 | Outpatient (BNV) | payer MEDICAID, SELFPAY | PROVIDERS: Admitting Provider Clinical Nurse Specialist Psychiatric/Mental Health, Adult; Emergency Provider Emergency Medicine; PCP Pediatrics; Visit Provider Student in an Organized Health Care Education/Training Program | DX: Z02.2 Encounter for examination for admission to residential institution (principal) | CPT/HCPCS: 99429; 99499 ==

== ENCOUNTER → 2024-03-30 13:04 | Outpatient (BNV) | payer OTHER, SELFPAY | PROVIDERS: Admitting Provider Clinical Nurse Specialist Psychiatric/Mental Health, Adult; Emergency Provider Emergency Medicine; PCP Pediatrics; Visit Provider Psychiatry & Neurology Psychiatry | DX: F60.3 Borderline personality disorder (principal); F25.1 Schizoaffective disorder, depressive type; F43.12 Post-traumatic stress disorder, chronic | CPT/HCPCS: 99232 ==

== ENCOUNTER → 2024-03-30 13:04 | Outpatient (BNV) | payer OTHER, SELFPAY | PROVIDERS: Admitting Provider Clinical Nurse Specialist Psychiatric/Mental Health, Adult; Emergency Provider Emergency Medicine; PCP Pediatrics; Visit Provider Psychiatry & Neurology Psychiatry | DX: F60.3 Borderline personality disorder (principal); F43.12 Post-traumatic stress disorder, chronic | CPT/HCPCS: 90870; 99231; 99232 ==

== ENCOUNTER 2024-04-21 05:52 | Day surgery (SDC) | payer OTHER, SELFPAY ==
[2024-04-21] VITALS (7 sets, daily range): BP systolic 109–168; BP diastolic 73–89; PULSE 8–93; RESP 16–21; TEMP 36–36.7; O2SAT 95–100; BMI 40.4
--- NOTE | 2024-04-21 06:57 | HO.ANESPROP2 ---
[facility] Active Problems Active Problems: All Active Problems Chronic post-traumatic stress disorder (PTSD) (Chronic) Schizoaffective disorder, depressive type (Chronic) Borderline personality disorder (Chronic) Auditory hallucinations (Acute) Port-A-Cath in place (Acute) Intentional self-harm (Acute) COPD (chronic obstructive pulmonary disease) (Acute) Asthma (Acute) Adjustment disorder (Acute) Anxiety (Acute) Injury of ligament of right knee (Acute) Sprain of anterior cruciate ligament of right knee (Acute) Hernia (Chronic) Increased BMI (Acute) GERD (gastroesophageal reflux disease) (Acute) Past Medical History Medical History Port-A-Cath in place History of electroconvulsive therapy COVID-19 COVID-19 Sprain of left foot Chronic post-traumatic stress disorder (PTSD) COPD (chronic obstructive pulmonary disease) Increased BMI GERD (gastroesophageal reflux disease) Recurrent major depression-severe Acute post-traumatic stress disorder Injury, self-inflicted Suicidal ideation Self-harming behavior Intentional self-harm Suicidal ideation Borderline personality disorder Schizoaffective disorder Adjustment disorder Asthma Depression Anxiety PTSD (post-traumatic stress disorder) Family History Family History Mother Brain cancer Other No family history of cardiac disease Family history of problems with anesthesia: No Surgical History History of Problems with Anesthesia: No Social History Social History Household Members: Caregiver and Other Household Members Other:: residential staff and peers Housing: Other Housing Other:: [facility] Do you presently have visiting nurse or other home services: No Unable to assess alcohol history related to: Unable to respond Alcohol intake: never Comment: 1:1 sitter Patient Tobacco Use Status: Former Tobacco user Tobacco use type: Cigarette Cigarette Packs Per Day: 0.5 Cigarettes Per Day: 4 Years Smoked: 20 e-Cigarette/Vaping Use: Never Used Second Hand Smoke Exposure: No Substance Use Type: Marijuana Advance Directives: No Advance Directives Information Provided: Yes service: No Sexual orientation: Straight/Heterosexual Meds Allergies Allergy/AdvReac Type Severity Reaction Status Date / Time carbamazepine [From TEGRETOL] AdvReac Mild Nausea and Verified 03/28/24 20:32 Vomiting topiramate [From Topamax] AdvReac Mild Nausea and Verified 03/28/24 20:32 Vomiting Home Medications ?Medication ?Instructions ?Recorded ?Confirmed ?Last Taken ?Type albuterol sulfate 90 mcg/actuation 2 puff inhalation Q6H PRN Wheezing 08/14/22 03/28/24 03/13/23 History aerosol inhaler (ProAir HFA) diphenhydramine HCl 50 mg capsule 2 cap PO BEDTIME 08/14/22 03/28/24 02/15/24 20:00 History (Banophen) haloperidol 5 mg tablet 1 tab PO TID PRN Agitation 08/14/22 03/28/24 03/13/23 History omeprazole 20 mg tablet,delayed 20 mg PO DAILY@0630 08/14/22 03/28/24 02/15/24 06:30 History release zolpidem 10 mg tablet 1 tab PO BEDTIME 08/14/22 03/28/24 02/15/24 20:00 History benztropine 0.5 mg tablet 1 tab PO BID 10/26/22 03/28/24 02/15/24 17:00 History clonidine HCl 0.1 mg tablet 1 tab PO TID 10/26/22 03/28/24 02/15/24 20:00 History duloxetine 60 mg capsule,delayed 1 cap PO DAILY 10/26/22 03/28/24 02/15/24 07:00 History release haloperidol decanoate 100 mg/mL 75 mg IM Q4W 10/26/22 03/28/24 03/08/24 History intramuscular solution lithium carbonate 300 mg tablet 300 mg PO BID 10/26/22 03/28/24 02/15/24 20:00 History lorazepam 1 mg tablet 1 mg PO TID PRN Anxiety 03/25/23 03/28/24 Unknown History prazosin 1 mg capsule 1 mg PO BEDTIME 06/17/23 03/28/24 02/15/24 20:00 History trazodone 100 mg tablet 200 mg PO BEDTIME 06/17/23 03/28/24 02/15/24 20:00 History cetirizine 10 mg tablet 10 mg PO DAILY 02/16/24 03/28/24 02/15/24 08:00 History prazosin 5 mg capsule 15 mg PO BEDTIME 02/16/24 03/28/24 02/15/24 20:00 History Exam Height,Weight and Vital Signs: Height 4 ft 11 in Weight 90.718 kg Last Vital Signs Temp 96.8 F 04/21/24 06:26 Pulse 74 04/21/24 06:26 Resp 16 04/21/24 06:26 BP 127/78 04/21/24 06:26 Pulse Ox 100 04/21/24 06:26 O2 Del Method Room Air 04/21/24 06:26 Airway Mallampati Class: II TM Dist: >3cm Neck ROM: Full Heart: rrr Lungs: cta Assessment and Plan Assessment Anesthesia Assessment: Anesthesia Plan Discussed and Chart Reviewed Final Anesthetic Review Family History of Problems with Anesthesia: No History of Problems with Anesthesia: No NPO: Yes ASA Class: III Final Preanesthetic Review: No Changes in Pt Med Stat, Meds/Allgs Chart Reviewed and Consent Obtained/Reviewed Patient Risk: Intermediate Procedure Risk: Intermediate Anesthetic Plan Anesthetic Plan: GA Disposition: Standard PACU
--- NOTE | 2024-04-21 06:58 | MHC.SHP ---
Pre-Procedural Eval Section A - 24 Hr Update-Section A only Date of Service: 04/21/24 The patient is an INPATIENT: No Changes since office visit: No Cold of Flu in the past 2 weeks, No New Medical Problems, No Changes in Medication and No Patient answered all questions The patient has been examined within 24 hours of the surgical procedure. The History & Physical has been completed within 30 days and I have reviewed it.: Yes Section B - Complete if H&P > 30 days Chief Complaint: Major depressive disorder, recurrent, severe with Details of Present Illness: The patient denies new changes on her medications,no new med problems Relevant Family History (Specify if Yes): Yes Relevant Social History: Other (specify) (cannabis) Present Medications: see Short Stay Collaborative assessment Medical History: Significant History Allergies: Allergies Allergy/AdvReac Type Severity Reaction Status Date / Time carbamazepine [From TEGRETOL] AdvReac Mild Nausea and Verified 03/28/24 20:32 Vomiting topiramate [From Topamax] AdvReac Mild Nausea and Verified 03/28/24 20:32 Vomiting Review of Systems Sugical H&P ROS: Negative: Constitution, Cardiovascular, Neurological, Hem-Onc, Allergic/Immunologic, Gastrointestinal, Genitourinary, Musculoskeletal, Integumentary, Endocrine and Eyes/Ears/Nose/Throat and Yes, Specify: Respiratory (no current intermittant asthma ) and Psychiatric (feels more stable) Exam Surgical H&P Exam: Normal: HEENT, Normal: Heart, Normal: Lungs, Normal: Extremities, Normal: Abdomen, Normal: Skin and Normal: Neurological Plan Diagnosis/Plan: Unchanged I have reviewed the history and physical and performed a pertinent physical examination on my patient. No changes have occurred unless specified. Time Spent With Patient Time: Total time managing care of this patient today ____ minutes.
--- NOTE | 2024-04-21 07:19 | P.PCN_ITS ---
ECT Procedure Note Diagnosis/Treatment Date of Service: 04/21/24 Diagnosis: Major Depressive Disorder and Other (PTSD) Treatment: Maintenance Interval Clinical Notes: Patient states she has generally been doing better stable no complaints of side effects feels ECT continues to be helpful regarding managing her mood and markedly she states less harming behavior Etomidate was lowered to 14 mg which was well tolerated. Increase seizure christina gth with etomidate 14 seizure 33 seconds compared to generally under 20 seconds. Monitor response follow-up treatment 2-3 weeks as tolerated Time: Total time managing care of this patient today ____ minutes. ECT Settings Device: THYMATRON DGx Electrode Placement: Bitemporal Program/Pulse Width: 0.50 Energy Percent: 100 Seizure Duration By EEG (in seconds): 33 Medications Administration General Anesthetic: Etomidate (14) Muscle Relaxant: Succinylcholine (100) Airway Management Airway Management: Bag Mask Ventilation Treatment Recommendations No Changes Recommended: No change
[2024-04-21] MEDS: Heparin Sodium,Porcine Flush 500 UNIT/5 ML SYRINGE IVFLUSH (07:59)
== END 2024-04-21 08:54 | disposition home or self-care (01) ==
PROVIDERS: PCP Pediatrics; Visit Provider Psychiatry & Neurology Psychiatry
PROC: (CPT 90870; principal; 2024-04-21 07:30)
DX: F33.2 Major depressive disorder, recurrent severe without psychotic features (principal); F43.10 Post-traumatic stress disorder, unspecified; F60.3 Borderline personality disorder; J44.9 Chronic obstructive pulmonary disease, unspecified; K21.9 Gastro-esophageal reflux disease without esophagitis; Z79.51 Long term (current) use of inhaled steroids; Z79.899 Other long term (current) drug therapy; Z88.8 Allergy status to other drugs, medicaments and biological substances; Z87.891 Personal history of nicotine dependence
CPT/HCPCS: 90870; J0330; J1642; J2405

== ENCOUNTER → 2024-04-21 05:52 | Outpatient (BNV) | payer OTHER, SELFPAY | PROVIDERS: PCP Pediatrics; Visit Provider Psychiatry & Neurology Psychiatry | DX: F33.2 Major depressive disorder, recurrent severe without psychotic features (principal) | CPT/HCPCS: 90870 ==

== ENCOUNTER 2024-04-27 13:20 | Outpatient (RCR) | payer OTHER, SELFPAY | END 2024-05-01 08:03 | disposition home or self-care (01) | LOC: HO.PHPA 13:20 | PROVIDERS: Visit Provider Psychiatry & Neurology Psychiatry | DX: F41.1 Generalized anxiety disorder (principal) ==

== ENCOUNTER 2024-04-30 15:24 | Emergency (ER) | payer OTHER, SELFPAY ==
[2024-04-30 15:42] VITALS: BP 125/76; BP 132/90; PULSE 75; PULSE 88; RESP 18; TEMP 36.6; O2SAT 96; O2SAT 97; BMI 40.6
[2024-04-30 15:50] VITALS: BP 125/76; PULSE 75; RESP 18; TEMP 36.6; O2SAT 96
[2024-04-30 16:11] LABS: MANUAL DIFF FLAG NO
[2024-04-30 16:13] LABS: Basophils Percent Auto 0.3 % (0-2); Eosinophils Percent Auto 0.4 % (0-4); Hematocrit 34.2 % (37.0-47.0); Hemoglobin 11.3 g/dl (12.0-16.0); Imm Gran Abs Auto 0.02 X10*3/uL (0.00-0.03); Imm Gran Pct Auto 0.2 % (0.0-0.4); Lymphocytes Absolute Auto 1.3 X10*3/uL (1.2-4.9); Lymphocytes Percent Auto 14.3 % (20-40); Mean Corpuscular Hemoglobin 30.4 pg (27.0-33.0); Mean Corpuscular Volume 91.9 fL (80.0-98.0); Mean Platelet Volume 11.3 fL (9.4-12.3); Monocytes Absolute Auto 0.7 X10*3/uL (0.1-1.2); Monocytes Percent Auto 7.4 % (2-11); Neutrophils Absolute Auto 7.1 x10*3/uL (2.0-8.3); Neutrophils Percent Auto 77.4 % (45-73); Platelet Count 212 X10*3/uL (160-400); Red Blood Count 3.72 X10*6/uL (4.20-5.50); Red Cell Distribution Width 13.1 % (11.0-16.0); White Blood Count 9.1 X10*3/uL (4.8-10.8)
--- NOTE | 2024-04-30 16:30 | ED_ITS ---
HPI - General Adult General Chief complaint: Psychiatric Symptoms Stated complaint: SI Time Seen by Provider: 04/30/24 16:11 Source: patient Mode of arrival: EMS Limitations: no limitations History of Present Illness ED Provider: Martina HPI narrative: 39yo F PMHx PTSD, BPD, Schizoaffective, asthma, COPD, GERD BIBA with thoughts of self harm and suicidal ideation. Patient endorses command hallucinations telling her to self harm but denies a plan to do so. Patient also complaining of nose pain 04/25 states it has been swollen for 2 days and has been picking at it. Patient also endorsing changes in sleep patterns, decreased appetite, and flashbacks. Endorses CP but states I always have CP. And denies recent trauma, fevers, chills, MOORE, visual hallucinations, cough, SOB, N/V/D, HI. Related Data Home Medications ?Medication ?Instructions ?Recorded ?Confirmed albuterol sulfate 90 mcg/actuation 2 puff inhalation QID PRN wheezing 04/30/24 04/30/24 aerosol inhaler (Ventolin HFA) benztropine 0.5 mg tablet 0.5 mg PO BID 04/30/24 04/30/24 budesonide-formoterol HFA 160 2 puff inhalation BID 04/30/24 04/30/24 mcg-4.5 mcg/actuation aerosol inhaler (Symbicort) clonidine HCl 0.1 mg tablet 0.1 mg PO TID 04/30/24 04/30/24 diphenhydramine HCl 50 mg capsule 100 mg PO BEDTIME insomnia 04/30/24 04/30/24 (Banophen) duloxetine 60 mg capsule,delayed 60 mg PO QAM 04/30/24 04/30/24 release haloperidol 5 mg tablet 5 mg PO TID PRN hallucinations 04/30/24 04/30/24 haloperidol decanoate 100 mg/mL 75 mg IM Q4W 04/30/24 04/30/24 intramuscular solution hydroxyzine pamoate 50 mg capsule 50 mg PO BID PRN anxiety 04/30/24 04/30/24 lidocaine 5 % topical patch 1 patch topical DAILY 04/30/24 04/30/24 lithium carbonate 300 mg tablet 300 mg PO BID 04/30/24 04/30/24 lorazepam 1 mg tablet 1 mg PO TID PRN anxiety 04/30/24 04/30/24 omeprazole 20 mg capsule,delayed 20 mg PO Q OTHER DAY 04/30/24 04/30/24 release prazosin 5 mg capsule 15 mg PO BEDTIME 04/30/24 04/30/24 trazodone 100 mg tablet 200 mg PO BEDTIME insomnia 04/30/24 04/30/24 Previous Rx's ?Medication ?Instructions ?Recorded cephalexin 500 mg tablet 500 mg PO Q6H 7 days #28 tabs 04/30/24 mupirocin 2 % topical ointment 1 appl topical BID 10 days #15 04/30/24 grams Allergies Allergy/AdvReac Type Severity Reaction Status Date / Time carbamazepine [From TEGRETOL] AdvReac Mild Nausea and Verified 04/30/24 15:47 Vomiting topiramate [From Topamax] AdvReac Mild Nausea and Verified 04/30/24 15:47 Vomiting Review of Systems 2 Review of Systems: Yes all other systems are reviewed and are negative PMFSH Past Medical History Attestation statement: The following information was validated with the patient. Source: old records reviewed and nursing notes reviewed Medical History Port-A-Cath in place History of electroconvulsive therapy COVID-19 COVID-19 Sprain of left foot Chronic post-traumatic stress disorder (PTSD) COPD (chronic obstructive pulmonary disease) Increased BMI GERD (gastroesophageal reflux disease) Recurrent major depression-severe Acute post-traumatic stress disorder Injury, self-inflicted Suicidal ideation Self-harming behavior Intentional self-harm Suicidal ideation Borderline personality disorder Schizoaffective disorder Adjustment disorder Asthma Depression Anxiety PTSD (post-traumatic stress disorder) Family History Family History Mother Brain cancer Other No family history of cardiac disease Social History Social History Household Members: Caregiver and Other Household Members Other:: residential staff and peers Housing: Other Housing Other:: [facility] Do you presently have visiting nurse or other home services: No Unable to assess alcohol history related to: Unable to respond Alcohol intake: never Comment: 1:1 sitter Patient Tobacco Use Status: Former Tobacco user Tobacco use type: Cigarette Cigarette Packs Per Day: 0.5 Cigarettes Per Day: 4 Years Smoked: 20 Smoked in Last 30 Days: Yes e-Cigarette/Vaping Use: Never Used Second Hand Smoke Exposure: No Use of substances other than those prescribed or required for medical reasons: Yes Substance Use Type: Marijuana Advance Directives: No Advance Directives Information Provided: No Do you have a plan to hurt others: No Plan service: No Sexual orientation: Straight/Heterosexual Physical Exam ED Vital Signs: Vital Signs - 24 hr 04/30/24 15:42 04/30/24 15:50 Temperature 97.9 F 97.9 F Pulse Rate 75 75 Respiratory Rate 18 18 Blood Pressure 125/76 125/76 Pulse Oximetry 96 96 Oxygen Delivery Method Room Air Room Air BMI result Body Mass Index 40.6 VSS Appearance: Alert. Oriented X3. No acute distress. ? No accessory muscle use Head: Normal external exam. Normocephalic. Atraumatic. ? Eyes: PERRLA. EOMI. Conjunctiva and sclera normal. Eyelids normal. ? ENT: Nose is erythematous and swollen at the tip. No apparent drainage. Nasal mucosa intact. Right nare mucosa is erythematous and edematous. CVS: ?Heart regular rate and rhythm no murmurs and rubs Respiratory: ?Diffuse wheezing throughout Abdomen: ?Soft nontender no rebound or guarding positive bowel sounds Skin: Skin warm and dry.? Normal skin color.? Normal skin turgor. Healed self harm scars present on UEs. No evidence of new self harm attempts. Extremities: No lower extremity edema. ? Extremities exhibit normal range of motion.? Extremities nontender. Neuro: Oriented X 3.? Speech clear and coherent. Answering questions appropriately. Psych: Calm, cooperative. Does not appear to be interacting with internal stimuli. Stated mood bad . Restricted affect, congruent with mood. Course Reevaluation(s) Reevaluation #1: CBC with a normocytic anemia appears to be around her baseline. Chemistry with no acute findings needing intervention. Salicylates, acetaminophen ethanol negative. Patient will be started on Keflex and mupirocin. Time: 18:26 Reevaluation #2: At this time patient to be placed into observation to allow more time to be evaluated by behavioral health team. At time observation started patient common cooperative no acute distress will continue to monitor. Time: 18:52 Reevaluation #3: Patient spoke briefly with care team, not a threat to self or others, plan is DC back to residential with follow up with out patient providers. Not si or hi. She just came to talk to somone she tells care team. Educated patient on diagnosis and treatment plan, answered all question, patient verbalizes understanding. At this time patient will be discharged home, advised to return with new or worsening symptoms. Educated on worrisome signs and symptoms and when to return. At this time I feel comfortable discharge home. Time: 18:56 Medications Administered Generic Name Dose Route Start Last Admin Trade Name Freq PRN Reason Stop Dose Admin Cephalexin HCl 500 mg 04/30/24 18:30 04/30/24 18:43 Cephalexin 500 Mg Capsule PO 500 mg Q6H SULEIMAN Administration Discontinued Medications Generic Name Dose Route Start Last Admin Trade Name Freq PRN Reason Stop Dose Admin Diphenhydramine HCl 50 mg 04/30/24 17:26 04/30/24 18:33 Diphenhydramine Hcl 25 Mg Capsule PO 04/30/24 17:27 50 mg ONCE ONE Administration Lorazepam 1 mg 04/30/24 17:26 04/30/24 18:33 Lorazepam 1 Mg Tablet PO 04/30/24 17:27 1 mg ONCE ONE Administration Medical Decision Making Medical Decision Making MDM Narrative: 39yo F PMHx PTSD, BPD, Schizoaffective, asthma, COPD, GERD BIBA with thoughts of self harm and suicidal ideation. Patient endorses command hallucinations telling her to self harm but denies a plan to do so. Patient also complaining of nose pain 9/10 states it has been swollen for 2 days and has been picking at it. PE: Nose is erythematous and swollen at the tip. No apparent drainage. Nasal mucosa intact. Right nare mucosa is erythematous and edematous. Oriented X 3.? Speech clear and coherent. Answering questions appropriately. Calm, cooperative. Does not appear to be interacting with internal stimuli. Stated mood bad . Restricted affect, congruent with mood. Hx and PE: concerning for acute mental health crisis vs. drug-induced psychosis and nasal cellulitis. Less likely, URI, cutaneous abscess, foreign body, allergic rhinitis, necrosis of nose Plan: urine tox screen, antibiotics, pain control, safety Differential Diagnosis Differential Diagnoses: The differential diagnosis associated with the presentation includes (Hx and PE: concerning for acute mental health crisis vs. drug-induced psychosis and nasal cellulitis. Less likely, URI, cutaneous abscess, foreign body, allergic rhinitis, necrosis of nose ) Admission/Observation Consideration of admission/observation: Escalation of care including admission/observation considered Possible Lab Data MDM Lab Attestation statement: I reviewed the patient's lab results. 04/30/24 15:56 04/30/24 15:56 Labs: Lab Results 04/30/24 Range/Units 15:56 WBC 9.1 (4.8-10.8) X10*3/uL RBC 3.72 L (4.20-5.50) X10*6/uL Hgb 11.3 L (12.0-16.0) g/dl Hct 34.2 L (37.0-47.0) % MCV 91.9 (80.0-98.0) fL MCH 30.4 (27.0-33.0) pg MCHC 33.0 (31.0-35.0) g/dl RDW 13.1 (11.0-16.0) % Plt Count 212 (160-400) X10*3/uL MPV 11.3 (9.4-12.3) fL Immature Gran % (Auto) 0.2 (0.0-0.4) % Neut % (Auto) 77.4 H (45-73) % Lymph % (Auto) 14.3 L (20-40) % [place] % (Auto) 7.4 (2-11) % Eos % (Auto) 0.4 (0-4) % Baso % (Auto) 0.3 (0-2) % Lymph # (Auto) 1.3 (1.2-4.9) X10*3/uL [place] # (Auto) 0.7 (0.1-1.2) X10*3/uL Eos # (Auto) 0.0 (0.0-0.4) X10*3/uL Baso # (Auto) 0.0 (0.0-0.2) X10*3/uL Abs Immat Gran (auto) 0.02 (0.00-0.03) X10*3/uL Absolute Neuts (auto) 7.1 (2.0-8.3) x10*3/uL Absolute Nucleated RBC 0.000 (0.0-0.012) X10*3/uL Nucleated RBC % (auto) 0.0 (0.0-0.2) /100WBC Sodium 139 (135-145) mmol/L Potassium 3.7 (3.3-5.1) mmol/L Chloride 110 H (96-108) mmol/L Carbon Dioxide 21 L (22-29) mmol/L Anion Gap 12 (12-20) BUN 5 L (9-16) mg/dL Creatinine 0.72 (0.5-1.4) mg/dL Estim Creat Clear Calc 104.3 Estimated GFR > 60 Random Glucose 95 (60-115) mg/dL Calcium 9.4 (8.4-10.2) mg/dL Total Bilirubin 0.4 (0.0-1.0) mg/dL AST 9 (5-31) U/L ALT 7 (0-31) U/L Alkaline Phosphatase 57 (39-117) U/L Total Protein 6.6 (6.5-8.0) g/dL Albumin 3.8 (3.5-5.0) g/dL Salicylates < 5.0 L (15-30) mg/dL Acetaminophen < 3 (<30) mcg/mL Ethyl Alcohol < 10 mg/dL External Record Review External record reviewed: Inpatient record, Office record, Outpatient record, Prior outpatient labs, Prior outpatient radiology, Primary care record and Outside ED record Chronic Conditions Patient?s care impacted by: Other (Obesity, PTSD, schizoaffective disorder, borderline personality, COPD, asthma, adjustment disorder) Social Determinants Patient?s care significantly limited by Social Determinants of Health including: Other Social Determinant of Health Critical Care Time Critical Care Time Critical Care Time: No Discharge Plan Discharge Clinical Impression: Borderline personality disorder, Cellulitis of external nose Patient Disposition: Still a Patient Additional Instructions: Take your medications as prescribed. If you were prescribed antibiotics today, it is important that you take your medication to their entirety, do not skip any doses, do not finish them early. Follow-up with your primary care provider this week. Return to the emergency department with new or worsening symptoms. Such as fevers, chills, chest pain, shortness of breath, nausea, vomiting, dizziness, headache, vision changes, lethargy In case of emergency call 911 Prescriptions: New cephalexin 500 mg tablet 500 mg PO Q6H 7 Days Qty: 28 0RF mupirocin 2 % ointment 1 appl topical BID 10 Days Qty: 15 0RF No Action clonidine HCl 0.1 mg tablet 0.1 mg PO TID benztropine 0.5 mg tablet 0.5 mg PO BID haloperidol 5 mg tablet 5 mg PO TID PRN (Reason: hallucinations) diphenhydramine HCl [Banophen] 50 mg capsule 100 mg PO BEDTIME haloperidol decanoate 100 mg/mL solution 75 mg IM Q4W hydroxyzine pamoate 50 mg capsule 50 mg PO BID PRN (Reason: anxiety) prazosin 5 mg capsule 15 mg PO BEDTIME trazodone 100 mg tablet 200 mg PO BEDTIME lidocaine 5 % adhesive patch,medicated 1 patch topical DAILY omeprazole 20 mg capsule,delayed release(DR/EC) 20 mg PO Q OTHER DAY lorazepam 1 mg tablet 1 mg PO TID PRN (Reason: anxiety) albuterol sulfate [Ventolin HFA] 90 mcg/actuation HFA aerosol inhaler 2 puff INHALATION QID PRN (Reason: wheezing) lithium carbonate 300 mg tablet 300 mg PO BID duloxetine 60 mg capsule,delayed release(DR/EC) 60 mg PO QAM budesonide-formoterol [Symbicort] 160-4.5 mcg/actuation HFA aerosol inhaler 2 puff INHALATION BID Referrals: Hafsa Holcomb NP [Primary Care Provider] - 2 days Interventions: [place]ite-Suicide Risk Severity Scale Last Done: 04/30/24 15:50 Print Language: Thai
[2024-04-30 16:33] LABS: Alanine Aminotransferase 7 U/L (0-31); Albumin Level 3.8 g/dL (3.5-5.0); Alkaline Phosphatase 57 U/L (39-117); Anion Gap 12 (12-20); Aspartate Amino Transferase 9 U/L (5-31); Bilirubin Total 0.4 mg/dL (0.0-1.0); Blood Urea Nitrogen 5 mg/dL (9-16); Calcium 9.4 mg/dL (8.4-10.2); Carbon Dioxide 21 mmol/L (22-29); Chloride 110 mmol/L (96-108); Creatinine Clr Calc Pharmacy 104.3; Estimated Glomerular Filt Rate > 60; Glucose Random 95 mg/dL (60-115); Potassium 3.7 mmol/L (3.3-5.1); Sodium 139 mmol/L (135-145); Total Protein 6.6 g/dL (6.5-8.0)
[2024-04-30 16:35] LABS: Acetaminophen LAB < 3 mcg/mL (<30); Ethanol < 10 mg/dL; Salicylate < 5.0 mg/dL (15-30)
--- NOTE | 2024-04-30 16:46 | MHC.CARE ---
Called Pt's skilled nursing ([phone]) and spoke with staff who reports that something triggered her and she tried to call the crisis line but they weren't answering... so as her second option she called EMS to go to [facility]. She reports that Pt had a complaint of nose pain.
[2024-04-30] MEDS: diphenhydrAMINE HCL 25 MG CAPSULE 50 MG PO (18:33)
[2024-04-30] MEDS: LORazepam 1 MG TABLET PO (18:33)
[2024-04-30] MEDS: cephALEXin 500 MG CAPSULE PO (18:43)
--- NOTE | 2024-04-30 19:11 | MHC.CARE ---
CARE Team was approached by the pt as she is now wanting to return home to the [facility] [place]. Pt stated that she came into [facility] ED due to wanting to speak to someone and that she was not actually in a crisis state. T/W spoke with the pt for a short while and she is ready to be discharged. Pt was able to contract for safety, and does not pose a threat to herself or others. [facility] was [facility] that the pt will be returning now. Provider was made aware that the pt wants to return home and she agrees that this is acceptable.
[2024-04-30 19:14] VITALS: BP 138/87; PULSE 97; RESP 18; TEMP 36.1; O2SAT 100
== END 2024-04-30 19:17 | disposition still patient (30) ==
PROVIDERS: Emergency Provider Emergency Medicine Emergency Medical Services; PCP Nurse Practitioner Family
DX: F25.8 Other schizoaffective disorders (principal); R45.851 Suicidal ideations; J34.0 Abscess, furuncle and carbuncle of nose; R07.89 Other chest pain; Z79.899 Other long term (current) drug therapy; Z87.891 Personal history of nicotine dependence
CPT/HCPCS: 36415; 80053; 80143; 80179; 80307; 85025; 99284; 99285

== ENCOUNTER 2024-05-09 23:42 | Emergency (ER) | payer OTHER, SELFPAY ==
[2024-05-09 23:55] VITALS: BP 126/81; PULSE 104; O2SAT 97
[2024-05-10 00:03] VITALS: BP 119/70; PULSE 82; RESP 17; TEMP 36.6; O2SAT 97
[2024-05-10 00:19] VITALS: BMI 41.2
--- NOTE | 2024-05-10 00:49 | ED.SOB ---
HPI - SOB/Dyspnea General Chief Complaint: Dyspnea Stated Complaint: SOB X3 WKS,R KNEE PAIN PER EMS Time Seen by Provider: 05/10/24 00:47 Source: patient Mode of arrival: EMS Limitations: no limitations History of Present Illness ED Provider: Dr. Danilo Foster HPI Narrative: 31-year-old female with a past medical history of PTSD, BPD, Schizoaffective, asthma, COPD, GERD who presents emergency department by ambulance for evaluation of cough, chest pain and shortness of breath times 3 weeks. Patient states that she has had a cough which is productive of thick yellow sputum with no blood in the sputum for several weeks. She states that the cough is gotten progressively worse. She states that she feels short of breath at rest and with exertion. Patient has anterior chest pain which is worse with coughing and with breathing. She denied fever but did have chills. She denied myalgias arthralgias. She states that occasionally when she coughs she has nausea, and gags but does not vomit. The patient states she smokes 1/2 pack of cigarettes per day times 20 years. Related Data Home Medications ?Medication ?Instructions ?Recorded ?Confirmed albuterol sulfate 90 mcg/actuation 2 puff inhalation QID PRN wheezing 04/30/24 04/30/24 aerosol inhaler (Ventolin HFA) benztropine 0.5 mg tablet 0.5 mg PO BID 04/30/24 04/30/24 budesonide-formoterol HFA 160 2 puff inhalation BID 04/30/24 04/30/24 mcg-4.5 mcg/actuation aerosol inhaler (Symbicort) clonidine HCl 0.1 mg tablet 0.1 mg PO TID 04/30/24 04/30/24 diphenhydramine HCl 50 mg capsule 100 mg PO BEDTIME insomnia 04/30/24 04/30/24 (Banophen) duloxetine 60 mg capsule,delayed 60 mg PO QAM 04/30/24 04/30/24 release haloperidol 5 mg tablet 5 mg PO TID PRN hallucinations 04/30/24 04/30/24 haloperidol decanoate 100 mg/mL 75 mg IM Q4W 04/30/24 04/30/24 intramuscular solution hydroxyzine pamoate 50 mg capsule 50 mg PO BID PRN anxiety 04/30/24 04/30/24 lidocaine 5 % topical patch 1 patch topical DAILY 04/30/24 04/30/24 lithium carbonate 300 mg tablet 300 mg PO BID 04/30/24 04/30/24 lorazepam 1 mg tablet 1 mg PO TID PRN anxiety 04/30/24 04/30/24 omeprazole 20 mg capsule,delayed 20 mg PO Q OTHER DAY 04/30/24 04/30/24 release prazosin 5 mg capsule 15 mg PO BEDTIME 04/30/24 04/30/24 trazodone 100 mg tablet 200 mg PO BEDTIME insomnia 04/30/24 04/30/24 Previous Rx's ?Medication ?Instructions ?Recorded cephalexin 500 mg tablet 500 mg PO Q6H 7 days #28 tabs 04/30/24 mupirocin 2 % topical ointment 1 appl topical BID 10 days #15 04/30/24 grams doxycycline hyclate 100 mg tablet 100 mg PO Q12H 5 days #10 tabs 05/10/24 ibuprofen 400 mg tablet 400 mg PO TID PRN fever or pain 05/10/24 #30 tabs Allergies Allergy/AdvReac Type Severity Reaction Status Date / Time carbamazepine [From TEGRETOL] AdvReac Mild Nausea and Verified 05/10/24 00:21 Vomiting topiramate [From Topamax] AdvReac Mild Nausea and Verified 05/10/24 00:21 Vomiting Review of Systems Review of Systems: Yes all other systems are reviewed and are negative [facility] Past Medical History Medical History Port-A-Cath in place History of electroconvulsive therapy COVID-19 COVID-19 Sprain of left foot Chronic post-traumatic stress disorder (PTSD) COPD (chronic obstructive pulmonary disease) Increased BMI GERD (gastroesophageal reflux disease) Recurrent major depression-severe Acute post-traumatic stress disorder Injury, self-inflicted Suicidal ideation Self-harming behavior Intentional self-harm Suicidal ideation Borderline personality disorder Schizoaffective disorder Adjustment disorder Asthma Depression Anxiety PTSD (post-traumatic stress disorder) Family History Family History Mother Brain cancer Other No family history of cardiac disease Social History Social History Household Members: Caregiver and Other Household Members Other:: residential staff and peers Housing: Other Housing Other:: Skilled Nursing Do you presently have visiting nurse or other home services: No Unable to assess alcohol history related to: Unable to respond Alcohol intake: never Comment: 1:1 sitter Patient Tobacco Use Status: Former Tobacco user Tobacco use type: Cigarette Cigarette Packs Per Day: 0.5 Cigarettes Per Day: 4 Years Smoked: 20 e-Cigarette/Vaping Use: Never Used Second Hand Smoke Exposure: No Substance Use Type: Marijuana service: No Sexual orientation: Straight/Heterosexual Physical Exam Vital Signs: Vital Signs: Last Vital Signs Temp 97.9 F 05/10/24 00:03 Pulse 82 05/10/24 00:03 Resp 17 05/10/24 00:03 BP 119/70 05/10/24 00:03 Pulse Ox 97 05/10/24 00:03 O2 Del Method Room Air 05/10/24 00:03 BMI result Body Mass Index 41.2 Vital signs were normal Exam: General: Awake, alert in no distress Head: Normocephalic, atraumatic EENT: PERRL, Lids normal, sclera normal, conjunctiva normal, nose normal , ears normal, throat without erythema or exudates Neck: Supple, no adenopathy Lung: breath sounds symmetric, no wheezing, rales or rhonchi Chest: symmetric movement, nontender Heart: regular rate and rhythm, normal S1, S2 no murmurs or rubs Abdomen: soft, non-tender, nondistended, normal bowel sounds Back: no vertebral tenderness, no CVAT Extremities: no deformities, moves all extremities symmetrically Neuro: Awake, alert, oriented, normal speech, cranial nerves intact, moves all extremities symmetrically Psych: Pleasant, cooperative Medical Decision Making Medical Decision Making MDM Narrative: 31-year-old female with a past medical history of PTSD, BPD, Schizoaffective, asthma, COPD, GERD who presents emergency department by ambulance for evaluation of cough, chest pain and shortness of breath times 3 weeks. Vital signs were normal. Physical examination was unremarkable. Differential diagnosis: ?Includes but is not limited to pneumonia, bronchitis, viral URI Course: :01 Patient's physical examination was unremarkable. Patient's presentation is consistent bronchitis. Given her smoking history and the persistence of her cough times weeks patient was started on doxycycline 100 mg every 12 hours for 5 days and given her 1st dose here in the emergency department. She was also started on ibuprofen 400 mg 3 times a day as needed for chest pain and given her 1st dose here in the emergency department. She was given printed and verbal instructions on bronchitis and was discharged home. Admission/Observation Consideration of admission/observation: Escalation of care including admission/observation considered (No) Prescription Management I considered prescription management with: Pain Medication and Antibiotic Chronic Conditions Patient?s care impacted by: Other (COPD) Discharge Plan Discharge Clinical Impression: Tobacco use disorder Acute bronchitis Qualifiers: Bronchitis organism: unspecified organism Qualified Code(s): J20.9 - Acute bronchitis, unspecified Patient Disposition: Home, Self-Care Instructions: Acute Bronchitis (ED) Additional Instructions: Your symptoms are consistent with bronchitis (inflammation and infection of your breathing tubes). This is most likely related to your smoking cigarettes. Take doxycycline 100 mg, 1 pill every 12 hours for 7 days Take ibuprofen 400 mg pills, 1 pill every 6 hours as needed for pain. Follow-up with your doctor in 2 days. Please return to the emergency department if your symptoms get worse or if you develop any symptoms that are concerning to you. Prescriptions: New ibuprofen 400 mg tablet 400 mg PO TID PRN (Reason: fever or pain) Qty: 30 0RF doxycycline hyclate 100 mg tablet 100 mg PO Q12H 5 Days Qty: 10 0RF No Action clonidine HCl 0.1 mg tablet 0.1 mg PO TID benztropine 0.5 mg tablet 0.5 mg PO BID haloperidol 5 mg tablet 5 mg PO TID PRN (Reason: hallucinations) diphenhydramine HCl [Banophen] 50 mg capsule 100 mg PO BEDTIME haloperidol decanoate 100 mg/mL solution 75 mg IM Q4W hydroxyzine pamoate 50 mg capsule 50 mg PO BID PRN (Reason: anxiety) prazosin 5 mg capsule 15 mg PO BEDTIME trazodone 100 mg tablet 200 mg PO BEDTIME lidocaine 5 % adhesive patch,medicated 1 patch topical DAILY omeprazole 20 mg capsule,delayed release(DR/EC) 20 mg PO Q OTHER DAY lorazepam 1 mg tablet 1 mg PO TID PRN (Reason: anxiety) albuterol sulfate [Ventolin HFA] 90 mcg/actuation HFA aerosol inhaler 2 puff INHALATION QID PRN (Reason: wheezing) lithium carbonate 300 mg tablet 300 mg PO BID duloxetine 60 mg capsule,delayed release(DR/EC) 60 mg PO QAM budesonide-formoterol [Symbicort] 160-4.5 mcg/actuation HFA aerosol inhaler 2 puff INHALATION BID cephalexin 500 mg tablet 500 mg PO Q6H 7 Days Qty: 28 0RF mupirocin 2 % ointment 1 appl topical BID 10 Days Qty: 15 0RF Print Language: Croatian
[2024-05-10] MEDS: Doxycycline Monohydrate 100 MG CAPSULE PO (01:28)
[2024-05-10] MEDS: Ibuprofen 400 MG TABLET PO (01:28)
[2024-05-10 01:36] VITALS: BP 119/70; PULSE 82; RESP 17; TEMP 36.6; O2SAT 97
== END 2024-05-10 01:38 | disposition home or self-care (01) ==
PROVIDERS: Emergency Provider Emergency Medicine Emergency Medical Services; PCP Nurse Practitioner Family
DX: J20.9 Acute bronchitis, unspecified (principal); Z87.891 Personal history of nicotine dependence
CPT/HCPCS: 99283; 99284

== ENCOUNTER 2024-05-17 17:53 | Inpatient (IN) | payer OTHER, SELFPAY ==
[2024-05-17 17:56] VITALS: BP 122/67; PULSE 66; O2SAT 98
[2024-05-17 18:02] VITALS: BP 109/81; PULSE 94; RESP 18; TEMP 37.4; O2SAT 96; BMI 40.6
--- NOTE | 2024-05-17 18:21 | ED.GENADULT ---
HPI - General Adult General Chief complaint: Psychiatric Symptoms Stated complaint: SI, CRISIS Time Seen by Provider: 05/17/24 18:19 Source: patient Mode of arrival: ambulatory Limitations: no limitations History of Present Illness HPI narrative: This is a 39-year-old woman with a past medical history PTSD, bipolar disorder, schizoaffective, asthma, COPD, GERD who is brought in by EMS for evaluation of self-harm and suicidal ideation. Patient is not very forthcoming with history. She states that she is feeling suicidal. She states no specific plan. She states that she has chronic back and knee pain, which she states is unchanged. She states no interval trauma. She states that she usually takes Tylenol or ibuprofen for this, but states that she has not taken anything today. She states decreased sleep. She states no chest pain or difficulty breathing. She states no fevers. She states no HI. She states no abdominal pain, nausea or vomiting, changes in bowel habits or urinary symptoms. Related Data Home Medications ?Medication ?Instructions ?Recorded ?Confirmed albuterol sulfate 90 mcg/actuation 2 puff inhalation QID PRN wheezing 04/30/24 04/30/24 aerosol inhaler (Ventolin HFA) benztropine 0.5 mg tablet 0.5 mg PO BID 04/30/24 04/30/24 budesonide-formoterol HFA 160 2 puff inhalation BID 04/30/24 04/30/24 mcg-4.5 mcg/actuation aerosol inhaler (Symbicort) clonidine HCl 0.1 mg tablet 0.1 mg PO TID 04/30/24 04/30/24 diphenhydramine HCl 50 mg capsule 100 mg PO BEDTIME insomnia 04/30/24 04/30/24 (Banophen) duloxetine 60 mg capsule,delayed 60 mg PO QAM 04/30/24 04/30/24 release haloperidol 5 mg tablet 5 mg PO TID PRN hallucinations 04/30/24 04/30/24 haloperidol decanoate 100 mg/mL 75 mg IM Q4W 04/30/24 04/30/24 intramuscular solution hydroxyzine pamoate 50 mg capsule 50 mg PO BID PRN anxiety 04/30/24 04/30/24 lidocaine 5 % topical patch 1 patch topical DAILY 04/30/24 04/30/24 lithium carbonate 300 mg tablet 300 mg PO BID 04/30/24 04/30/24 lorazepam 1 mg tablet 1 mg PO TID PRN anxiety 04/30/24 04/30/24 omeprazole 20 mg capsule,delayed 20 mg PO Q OTHER DAY 04/30/24 04/30/24 release prazosin 5 mg capsule 15 mg PO BEDTIME 04/30/24 04/30/24 trazodone 100 mg tablet 200 mg PO BEDTIME insomnia 04/30/24 04/30/24 Previous Rx's ?Medication ?Instructions ?Recorded cephalexin 500 mg tablet 500 mg PO Q6H 7 days #28 tabs 04/30/24 mupirocin 2 % topical ointment 1 appl topical BID 10 days #15 04/30/24 grams doxycycline hyclate 100 mg tablet 100 mg PO Q12H 5 days #10 tabs 05/10/24 ibuprofen 400 mg tablet 400 mg PO TID PRN fever or pain 05/10/24 #30 tabs Allergies Allergy/AdvReac Type Severity Reaction Status Date / Time carbamazepine [From TEGRETOL] AdvReac Mild Nausea and Verified 05/17/24 18:05 Vomiting topiramate [From Topamax] AdvReac Mild Nausea and Verified 05/17/24 18:05 Vomiting Review of Systems Review of Systems: ROS as per HPI Yes all other systems are reviewed and are negative PMFSH Past Medical History Medical History Port-A-Cath in place History of electroconvulsive therapy COVID-19 COVID-19 Sprain of left foot Chronic post-traumatic stress disorder (PTSD) COPD (chronic obstructive pulmonary disease) Increased BMI GERD (gastroesophageal reflux disease) Recurrent major depression-severe Acute post-traumatic stress disorder Injury, self-inflicted Suicidal ideation Self-harming behavior Intentional self-harm Suicidal ideation Borderline personality disorder Schizoaffective disorder Adjustment disorder Asthma Depression Anxiety PTSD (post-traumatic stress disorder) Family History Family History Mother Brain cancer Other No family history of cardiac disease Social History Social History Household Members: Caregiver and Other Household Members Other:: intermediate staff and peers Housing: Other Housing Other:: Custodial Do you presently have visiting nurse or other home services: No Unable to assess alcohol history related to: Unable to respond Alcohol intake: never Comment: 1:1 sitter Patient Tobacco Use Status: Former Tobacco user Tobacco use type: Cigarette Cigarette Packs Per Day: 0.5 Cigarettes Per Day: 4 Years Smoked: 20 Smoked in Last 30 Days: No e-Cigarette/Vaping Use: Never Used Second Hand Smoke Exposure: No Use of substances other than those prescribed or required for medical reasons: No Substance Use Type: Marijuana Advance Directives: No Advance Directives Information Provided: No Do you have a plan to hurt others: No Plan service: No Sexual orientation: Straight/Heterosexual Physical Exam ED Vital Signs: Vital Signs - 24 hr 05/17/24 18:02 05/17/24 18:28 Temperature 99.3 F 99.3 F Pulse Rate 94 94 Respiratory Rate 18 18 Blood Pressure 109/81 109/81 Pulse Oximetry 96 96 Oxygen Delivery Method Room Air Room Air BMI result Body Mass Index 40.6 Gen: Mild distress, hitting head against the wall for room, awake, alert, answering questions and following commands HEENT: NCAT, EOMI, normal conjunctiva CV: RRR Pulm: CTAB, no increased work of breathing, no wheezes, rhonchi or rales GI: Soft, NTND MSK: Bilateral upper and lower extremity compartments are soft Neuro: Grossly non focal Skin: Warm, dry, superficial linear abrasions to the left anterior distal forearm that are well healing and without associated erythema/warmth/tenderness/purulence Medications Administered Discontinued Medications Generic Name Dose Route Start Last Admin Trade Name Freq PRN Reason Stop Dose Admin Midazolam HCl 4 mg 05/17/24 18:20 05/17/24 18:28 Midazolam Hcl/Pf 2 Mg/2 Ml Vial IM 05/17/24 18:21 4 mg ONCE ONE Administration Medical Decision Making Medical Decision Making [facility] Narrative: 1820 - patient hitting her head against the wall in her exam room. Given concern for patient's safety and potential staff safety I offered the patient calming medications. She stated that she would not take any oral medications. She stated that she was amenable to an intramuscular injection. For this reason, she was provided 4 mg IM Versed. 1853 - on re-examination, patient is seated comfortably in the hospital stretcher watching television and in no acute distress. Differential diagnosis includes, but is not limited to anxiety, depression, decompensated psychiatric illness, suicide ideation, self-injurious behavior. Patient is afebrile and hemodynamically stable on room air. Exam is benign and reassuring. I reviewed and interpreted the patient's labs, Admission/Observation Consideration of admission/observation: Escalation of care including admission/observation considered Discharge Plan Discharge Clinical Impression: Self-injurious behavior, Suicidal ideation Prescriptions: No Action clonidine HCl 0.1 mg tablet 0.1 mg PO TID benztropine 0.5 mg tablet 0.5 mg PO BID haloperidol 5 mg tablet 5 mg PO TID PRN (Reason: hallucinations) diphenhydramine HCl [Banophen] 50 mg capsule 100 mg PO BEDTIME haloperidol decanoate 100 mg/mL solution 75 mg IM Q4W hydroxyzine pamoate 50 mg capsule 50 mg PO BID PRN (Reason: anxiety) prazosin 5 mg capsule 15 mg PO BEDTIME trazodone 100 mg tablet 200 mg PO BEDTIME lidocaine 5 % adhesive patch,medicated 1 patch topical DAILY omeprazole 20 mg capsule,delayed release(DR/EC) 20 mg PO Q OTHER DAY lorazepam 1 mg tablet 1 mg PO TID PRN (Reason: anxiety) albuterol sulfate [Ventolin HFA] 90 mcg/actuation HFA aerosol inhaler 2 puff INHALATION QID PRN (Reason: wheezing) lithium carbonate 300 mg tablet 300 mg PO BID duloxetine 60 mg capsule,delayed release(DR/EC) 60 mg PO QAM budesonide-formoterol [Symbicort] 160-4.5 mcg/actuation HFA aerosol inhaler 2 puff INHALATION BID cephalexin 500 mg tablet 500 mg PO Q6H 7 Days Qty: 28 0RF mupirocin 2 % ointment 1 appl topical BID 10 Days Qty: 15 0RF ibuprofen 400 mg tablet 400 mg PO TID PRN (Reason: fever or pain) Qty: 30 0RF doxycycline hyclate 100 mg tablet 100 mg PO Q12H 5 Days Qty: 10 0RF Interventions: [place]-Suicide Risk Severity Scale Last Done: 05/17/24 18:29 Print Language: Faroese
[2024-05-17 18:28] VITALS: BP 109/81; PULSE 94; RESP 18; TEMP 37.4; O2SAT 96
[2024-05-17] MEDS: Midazolam HCl/PF 2 MG/2 ML VIAL 4 MG IM (18:28)
[2024-05-17 21:53] LABS: MANUAL DIFF FLAG NO
[2024-05-17 21:55] LABS: Basophils Percent Auto 0.5 % (0-2); Eosinophils Absolute Auto 0.1 X10*3/uL (0.0-0.4); Eosinophils Percent Auto 1.3 % (0-4); Hematocrit 33.3 % (37.0-47.0); Hemoglobin 10.6 g/dl (12.0-16.0); Imm Gran Abs Auto 0.03 X10*3/uL (0.00-0.03); Imm Gran Pct Auto 0.4 % (0.0-0.4); Lymphocytes Absolute Auto 1.5 X10*3/uL (1.2-4.9); Lymphocytes Percent Auto 17.7 % (20-40); Mean Corpuscular HGB Conc 31.8 g/dl (31.0-35.0); Mean Corpuscular Hemoglobin 29.8 pg (27.0-33.0); Mean Corpuscular Volume 93.5 fL (80.0-98.0); Mean Platelet Volume 11.5 fL (9.4-12.3); Monocytes Absolute Auto 0.5 X10*3/uL (0.1-1.2); Monocytes Percent Auto 5.6 % (2-11); Neutrophils Absolute Auto 6.4 x10*3/uL (2.0-8.3); Neutrophils Percent Auto 74.5 % (45-73); Platelet Count 256 X10*3/uL (160-400); Red Blood Count 3.56 X10*6/uL (4.20-5.50); Red Cell Distribution Width 13.1 % (11.0-16.0); White Blood Count 8.6 X10*3/uL (4.8-10.8)
[2024-05-17 22:01] LABS: Lithium 0.48 mmol/L (0.60-1.20)
[2024-05-17 22:07] LABS: Ethanol < 10 mg/dL
[2024-05-17 22:10] LABS: Acetaminophen LAB < 3 mcg/mL (<30); Salicylate < 5.0 mg/dL (15-30)
[2024-05-17 22:17] LABS: Alanine Aminotransferase 8 U/L (0-31); Albumin Level 3.7 g/dL (3.5-5.0); Alkaline Phosphatase 52 U/L (39-117); Anion Gap 11 (12-20); Aspartate Amino Transferase 13 U/L (5-31); Bilirubin Total 0.3 mg/dL (0.0-1.0); Blood Urea Nitrogen 6 mg/dL (9-16); Calcium 9.3 mg/dL (8.4-10.2); Carbon Dioxide 22 mmol/L (22-29); Chloride 110 mmol/L (96-108); Creatinine Clr Calc Pharmacy 110.4; Estimated Glomerular Filt Rate > 60; Glucose Random 95 mg/dL (60-115); Sodium 139 mmol/L (135-145); Total Protein 6.3 g/dL (6.5-8.0)
[2024-05-17 22:23] LABS: HCG Quantitative < 2 mIU/mL
[2024-05-17] MEDS: Zolpidem Tartrate 5 MG TABLET 10 MG PO (22:43)
[2024-05-17 22:44] VITALS: BP 109/81
[2024-05-17] MEDS: Prazosin HCL 1 MG CAPSULE PO (22:44)
[2024-05-17] MEDS: diphenhydrAMINE HCL 25 MG CAPSULE 100 MG PO (22:44)
[2024-05-17] MEDS: traZODone HCL 100 MG TABLET 200 MG PO (22:44)
[2024-05-17] MEDS: Lithium Carbonate 300 MG CAPSULE PO (22:44)
[2024-05-17] MEDS: Prazosin HCL 5 MG CAPSULE 15 MG PO (22:44)
[2024-05-17 22:45] VITALS: BP 109/81
[2024-05-17] MEDS: Benztropine Mesylate 0.5 MG TABLET PO (22:45)
[2024-05-17] MEDS: cloNIDine HCL 0.1 MG TABLET PO (22:45)
[2024-05-18 00:15] VITALS: BP 110/63; PULSE 90; RESP 18; TEMP 36.6; O2SAT 97
--- NOTE | 2024-05-18 02:48 | PC.ADMIT ---
Stella Capps is a 39 year old female admitted as a CV to at [facility] from our ED pod; she is known to this unit as she has a history of multiple hospitalizations. She is a one-to-one at this time, as her presenting complaint is SI, with a plan that she will not disclose. She refuses to agree to seek out staff if she feels she will act on this plan. Stella has a history of self harm and head banging, and had an episode of head banging against the wall in the pod. She was not restrained at that time. She has a history significant for bipolar disorder, schizoaffective, adjustment disorder, asthma, COPD, GERD and SIB. Her skin check revealed no skin issues, other than countless healed/closed areas on her forearms and a forehead scar from past episodes of self harm. VS WNL. She complains of AH, consisting of voices that are helping me to find a way to kill myself. She rates her depression and anxiety at 10/10. She was cooperative with the admission, but tearful at times. It is difficult for her to concentrate long enough to answer questions or sign forms. Her eyelids are very swollen from excessive weeping. She stated I just don't feel safe on my own. She was able to complete her admission, and immediately retired to bed.
[2024-05-18 08:37] VITALS: BP 125/67; PULSE 77; RESP 16; TEMP 36.5; O2SAT 94
[2024-05-18 09:07] LABS: Alanine Aminotransferase 9 U/L (0-31); Albumin Level 3.9 g/dL (3.5-5.0); Alkaline Phosphatase 61 U/L (39-117); Anion Gap 12 (12-20); Aspartate Amino Transferase 12 U/L (5-31); Bilirubin Total 0.3 mg/dL (0.0-1.0); Blood Urea Nitrogen 5 mg/dL (9-16); Calcium 9.7 mg/dL (8.4-10.2); Carbon Dioxide 22 mmol/L (22-29); Chloride 111 mmol/L (96-108); Cholesterol 159 mg/dL (<200); Creatinine Clr Calc Pharmacy 110.4; Estimated Glomerular Filt Rate > 60; Glucose Fasting 107 mg/dL (60-99); HDL Cholesterol 55 mg/dL (>40); LDL Cholesterol Calculated 87 mg/dL (<100); Sodium 141 mmol/L (135-145); Total Protein 6.8 g/dL (6.5-8.0); Triglycerides 86 mg/dL (<150)
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
[2024-05-18] MEDS: Lithium Carbonate 300 MG CAPSULE PO ×2 (09:57→23:21)
[2024-05-18] MEDS: Benztropine Mesylate 0.5 MG TABLET PO ×2 (09:57→19:10)
[2024-05-18] MEDS: cloNIDine HCL 0.1 MG TABLET PO ×3 (09:57→19:10)
[2024-05-18] MEDS: Multivitamin TABLET 1 TAB PO (09:57)
[2024-05-18] MEDS: Omeprazole 20 MG CAPSULE.DR PO (09:57)
[2024-05-18] MEDS: Loratadine 10 MG TABLET PO (09:57)
[2024-05-18] MEDS: DULoxetine HCl 60 MG CAPSULE.DR PO (09:57)
[2024-05-18 10:47] LABS: Appearance Urine Clear; Color Urine Straw; Glucose Urine UA Negative (Negative); Leukocyte Esterase Urine Negative (Negative); Nitrite Urine Negative (Negative); PH 6.5 (5.0-9.0); Specific Gravity - Urine 1.015 (1.005-1.025); Urine Blood Negative (Negative); Urine Ketones Negative (Negative); Urine Protein Negative (Neg-Trace)
[2024-05-18 10:53] LABS: Amphetamine Screen Urine Not Detected (Not Detect); Barbiturates, Urine Not Detected (Not Detect); Benzodiazepines Screen Urine POSITIVE (Not Detect); Buprenorphine Scr Not Detected (Not Detect); Cannabinoid Screen Urine POSITIVE (Not Detect); Cocaine Screen Urine Not Detected (Not Detect); Fentanyl, urine Not Detected (Not Detect); Methadone Screen, Urine Not Detected (Not Detect); Opiate Screen Urine Not Detected (Not Detect); Oxycodone Screen Urine Not Detected (Not Detect); Phencyclidine Screen Urine Not Detected (Not Detect)
[2024-05-18 14:45] VITALS: BP 97/62; PULSE 62; O2SAT 95
[2024-05-18] MEDS: HaloperidoL 5 MG TABLET PO ×2 (14:47→23:21)
[2024-05-18] MEDS: hydrOXYzine HCL 25 MG TABLET PO ×2 (14:47→23:21)
[2024-05-18] MEDS: Fluconazole 150 MG TABLET PO (18:02)
[2024-05-18] MEDS: traZODone HCL 100 MG TABLET 200 MG PO (19:09)
[2024-05-18 19:10] VITALS: BP 106/64
[2024-05-18] MEDS: Prazosin HCL 5 MG CAPSULE 15 MG PO (19:10)
[2024-05-18] MEDS: Zolpidem Tartrate 5 MG TABLET 10 MG PO (19:10)
[2024-05-18 19:11] VITALS: BP 106/64
[2024-05-18] MEDS: diphenhydrAMINE HCL 25 MG CAPSULE 100 MG PO (19:11)
[2024-05-18] MEDS: Prazosin HCL 1 MG CAPSULE PO (19:11)
[2024-05-18 20:00] VITALS: BP 106/64; PULSE 64; RESP 16; TEMP 37; O2SAT 98
[2024-05-18] MEDS: LORazepam 1 MG TABLET 2 MG PO (23:28)
--- NOTE | 2024-05-19 | ECG_ITS ---
Test Reason : ECT CLEARENCE Blood Pressure : / mmHG Vent. Rate : 063 BPM Atrial Rate : 063 BPM P-R Int : 154 ms QRS Dur : 072 ms QT Int : 410 ms P-R-T Axes : 070 079 053 degrees QTc Int : 419 ms Normal sinus rhythm Nonspecific T wave abnormality Abnormal ECG When compared with ECG of 29-MAR-2024 10:03, No significant change was found Referred By: Maurizio Hernández Electronically Signed By:GORDON LADD
--- NOTE | 2024-05-19 09:17 | HO.PSYCHPN ---
Subjective Subjective Date of Service: 05/19/24 Reason For Visit: SI Interim History: met with patient; discussed with team depressed, agitated and hitting self, needing redirection; asks for ativan 1mg TID prn which she said she's been getting at long term, though account underwriter cannot find script. Pt says she's trying... and working on refraining from self harm. Pt asks for ECT. Discussed with Dr. Silva who agrees Mental Status Exam Mental Status Exam Narrative: Pt is alert and oriented; behavior is lying in bed, quiet, intermittently smacking her head with palm; dressed in hospital gown with unkempt hair, puffy face; numerous of scars up and down bilateral forearms from hx of superficial cutting; mood is described as depressed and affect congruent, downcast, distant; eye contact appropriate; Speech is slowed, quiet; normal prosody; psychomotor retardation present; thought process is goal directed; Thought content is on missing her sister, self-harm; otherwise pertinent to relevant topics and without any delusional content, paranoid ideations or grandiosity; +SI; no HI. Report AH; Patients insight and judgment are impaired. Diagnostics Vital Signs (24Hr): Vital Signs - 24 hr 05/18/24 14:45 05/18/24 19:10 05/18/24 19:10 Temperature Pulse Rate 62 Respiratory Rate Blood Pressure 97/62 106/64 106/64 Pulse Oximetry 95 Oxygen Delivery Method Room Air 05/18/24 19:11 05/18/24 20:00 Temperature 98.6 F Pulse Rate 64 Respiratory Rate 16 Blood Pressure 106/64 106/64 Pulse Oximetry 98 Oxygen Delivery Method Room Air BMI result Body Mass Index 40.6 Labs 05/17/24 21:44 05/18/24 08:26 Labs: Laboratory Results - last 48 hr 05/17/24 05/18/24 05/18/24 21:44 08:26 09:04 WBC 8.6 RBC 3.56 L Hgb 10.6 L Hct 33.3 L MCV 93.5 MCH 29.8 MCHC 31.8 RDW 13.1 Plt Count 256 MPV 11.5 Immature Gran % (Auto) 0.4 Neut % (Auto) 74.5 H Lymph % (Auto) 17.7 L [place] % (Auto) 5.6 Eos % (Auto) 1.3 Baso % (Auto) 0.5 Lymph # (Auto) 1.5 [place] # (Auto) 0.5 Eos # (Auto) 0.1 Baso # (Auto) 0.0 Abs Immat Gran (auto) 0.03 Absolute Neuts (auto) 6.4 Absolute Nucleated RBC 0.000 Nucleated RBC % (auto) 0.0 Sodium 139 141 Potassium 4.0 4.0 Chloride 110 H 111 H Carbon Dioxide 22 22 Anion Gap 11 L 12 BUN 6 L 5 L Creatinine 0.68 0.68 Estim Creat Clear Calc 110.4 110.4 Estimated GFR > 60 > 60 Random Glucose 95 Fasting Glucose 107 H Calcium 9.3 9.7 Total Bilirubin 0.3 0.3 AST 13 12 ALT 8 9 Alkaline Phosphatase 52 61 Total Protein 6.3 L 6.8 Albumin 3.7 3.9 Triglycerides 86 Cholesterol 159 LDL Cholesterol, Calc 87 HDL Cholesterol 55 Beta HCG, Quant < 2 Urine Color Straw Urine Appearance Clear Urine pH 6.5 Ur Specific [place] 1.015 Urine Protein Negative Urine Glucose (UA) Negative Urine Ketones Negative Urine Blood Negative Urine Nitrite Negative Ur Leukocyte Esterase Negative Salicylates < 5.0 L Urine Opiates Screen Not Detected Ur Buprenorphine Scrn Not Detected Ur Oxycodone Screen Not Detected Urine Methadone Screen Not Detected Urine Fentanyl Screen Not Detected Acetaminophen < 3 Ur Barbiturates Screen Not Detected Ur Phencyclidine Scrn Not Detected Ur Amphetamines Screen Not Detected U Benzodiazepines Scrn POSITIVE H [place] 0.48 L Urine Cocaine Screen Not Detected U Marijuana (THC) Screen POSITIVE H Ethyl Alcohol < 10 Medications Medications Current Medications Acetaminophen (Acetaminophen 325 Mg Tablet) 650 mg PO Q6H PRN PRN Reason: Headache/Pain Mild Scale (1-3) Al Hydroxide/Mg Hydroxide (Magnesium Hydrox/Alum Hydrox 30 Ml Oral.Susp) 30 ml PO Q6H PRN PRN Reason: Heartburn/Nausea Albuterol Sulfate (Albuterol Sulfate 90 Mcg 8 Gm Inhaler) 2 puff INHALE QID PRN PRN Reason: wheezing Benztropine Mesylate (Benztropine Mesylate 0.5 Mg Tablet) 0.5 mg PO BID [facility] Last Admin: 05/18/24 19:10 Dose: 0.5 mg Clonidine HCl (Clonidine Hcl 0.1 Mg Tablet) 0.1 mg PO TID [facility]; Protocol Last Admin: 05/18/24 19:10 Dose: 0.1 mg Diphenhydramine HCl (Diphenhydramine Hcl 25 Mg Capsule) 100 mg PO BEDTIME [facility] Last Admin: 05/18/24 19:11 Dose: 100 mg Duloxetine HCl (Duloxetine Hcl 60 Mg Capsule.Dr) 60 mg PO DAILY [facility] Last Admin: 05/18/24 09:57 Dose: 60 mg Haloperidol (Haloperidol 5 Mg Tablet) 5 mg PO TID PRN PRN Reason: hallucinations Last Admin: 05/18/24 23:21 Dose: 5 mg Hydroxyzine HCl (Hydroxyzine Hcl 25 Mg Tablet) 25 mg PO Q6H PRN PRN Reason: Anxiety Last Admin: 05/18/24 23:21 Dose: 25 mg Ibuprofen (Ibuprofen 600 Mg Tablet) 600 mg PO TID PRN PRN Reason: arthritis [place] Carbonate ([place] Carbonate 300 Mg Capsule) 300 mg PO BID [facility] Last Admin: 05/18/24 23:21 Dose: 300 mg Loratadine (Loratadine 10 Mg Tablet) 10 mg PO DAILY [facility] Last Admin: 05/18/24 09:57 Dose: 10 mg Magnesium Hydroxide (Milk Of Magnesia 30 Ml Oral.Susp) 30 ml PO DAILY PRN PRN Reason: Constipation Multivitamins/Vitamin C (Multivitamin Tablet) 1 tab PO DAILY [facility] Last Admin: 05/18/24 09:57 Dose: 1 tab Non-Formulary Medication (Haloperidol Decanoate) 75 mg IM Q4W [facility] Non-Formulary Medication (Psyllium Husk [Daily Fiber]) 0.8 gm PO BID [facility] Omeprazole (Omeprazole 20 Mg Capsule.) 20 mg PO Q48H [facility] Last Admin: 05/18/24 09:57 Dose: 20 mg Prazosin HCl (Prazosin Hcl 1 Mg Capsule) 1 mg PO BEDTIME [facility]; Protocol Last Admin: 05/18/24 19:11 Dose: 1 mg Prazosin HCl (Prazosin Hcl 5 Mg Capsule) 15 mg PO BEDTIME [facility]; Protocol Last Admin: 05/18/24 19:10 Dose: 15 mg Trazodone HCl (Trazodone Hcl 100 Mg Tablet) 200 mg PO BEDTIME [facility] Last Admin: 05/18/24 19:09 Dose: 200 mg Trazodone HCl (Trazodone Hcl 50 Mg Tablet) 50 mg PO BEDTIME MRX1 PRN PRN Reason: Insomnia Zolpidem Tartrate (Zolpidem Tartrate 5 Mg Tablet) 10 mg PO BEDTIME [facility] Last Admin: 05/18/24 19:10 Dose: 10 mg Allergies Allergies Allergy/AdvReac Type Severity Reaction Status Date / Time carbamazepine [From TEGRETOL] AdvReac Mild Nausea and Verified 05/17/24 18:05 Vomiting topiramate [From Topamax] AdvReac Mild Nausea and Verified 05/17/24 18:05 Vomiting Assessment & Plan Assessment & Plan (1) Chronic post-traumatic stress disorder (PTSD): Status: Chronic Code(s): F43.12 - Post-traumatic stress disorder, chronic (2) Borderline personality disorder: Status: Chronic Code(s): F60.3 - Borderline personality disorder Plan Pt is a 39 y.o. female, with? PTSD with extensive trauma history, and BPD, (carries a dx of schizoaffective DO, depressive type),chronic SI, chronic self-harming urges/ behaviors and multiple inpatient admissions/ED visits who presents for SI and increased urges to self-harm following relational strife at long term. Initially Patient is not sure why she decompensated starting about a week ago. On further discussion she says there is a peer at the long term has been there longer than her and she started to think that the long term staff felt emotionally closer to this peer which made patient feel lonely; patient then identified that the anniversary of her beloved sister's , June 18 is coming up and remembers that once May, she starts thinking about this upcoming anniversary. She also identifies that she has not had ECT in weeks and wonders if that is contributory. Otherwise Patient agrees that medications and intermittent ECT have been overall helpful. She says she feels unsafe with urges to self-harm. She is hoping that some rest, being away from long term and possibly ECT will help restabilize her. Plan: CV 1:1 for safety Continue home medication regimen ECT #1 pending 05/22 -NPO adding PRN ativan Patient educated on: diagnosis, medication risk/benefits, ECT and therapeutic strategies Informed Consent: understands Reason for continued inpatient stay Substantial Risk for: harm to self Time Spent With Patient Time: Total time managing care of this patient today ____ minutes.
[2024-05-19 10:52] VITALS: BP 136/66; PULSE 82; RESP 16; TEMP 37; O2SAT 98
[2024-05-19] MEDS: Lithium Carbonate 300 MG CAPSULE PO ×2 (10:52→20:05)
[2024-05-19] MEDS: Loratadine 10 MG TABLET PO (10:52)
[2024-05-19] MEDS: HaloperidoL 5 MG TABLET PO ×2 (10:53→18:18)
[2024-05-19] MEDS: Multivitamin TABLET 1 TAB PO (10:53)
[2024-05-19] MEDS: hydrOXYzine HCL 25 MG TABLET PO (10:53)
[2024-05-19] MEDS: Benztropine Mesylate 0.5 MG TABLET PO ×2 (10:54→20:05)
[2024-05-19] MEDS: DULoxetine HCl 60 MG CAPSULE.DR PO (10:54)
[2024-05-19 11:08] VITALS: BP 152/97
[2024-05-19] MEDS: cloNIDine HCL 0.1 MG TABLET PO ×3 (11:08→20:05)
[2024-05-19] MEDS: Flu Vacc TS2024-25(6mos up)/PF 0.5 ML SYRINGE IM (11:09)
[2024-05-19] MEDS: LORazepam 1 MG TABLET PO ×3 (12:40→20:05)
--- NOTE | 2024-05-19 13:08 | HO.ECT-CONS ---
History of Present Illness Data of Consult Service Date: 05/19/24 Primary Care Provider: Hafsa Holcomb NP HPI Reason for consult: ECT Risk Stratification Patient is a 39-year-old female with a PMH significant for COPD/asthma overlap syndrome, GERD, PTSD, schizoaffective disorder, and borderline personality disorder admitted to [facility] unit with consult placed to hospitalist services for ECT clearance. Pt has undergone ECT many times in the past without complications, most recently last month in April. Is interested in continuing ECT as it makes me a better person . Has known asthma/COPD overlap on a rescue inhaler which she uses intermittently but not daily. No respiratory complaints. Patient denies known history of TBI, stroke, intracranial bleed, intracranial mass, or seizure disorder. Denies history of bleeding disorders, CAD, or previous difficulties with anesthesia. Review of past EKGs show no hx of prolonged QTc. Pt herself has no acute medical complaints at this time. Review of Systems Review of Systems: Patient has no acute medical complaints at this time Denies shortness a breath or difficulty breathing No chest pain/pressure, palpitations PMFSH Medical History Port-A-Cath in place History of electroconvulsive therapy COVID-19 COVID-19 Sprain of left foot Chronic post-traumatic stress disorder (PTSD) COPD (chronic obstructive pulmonary disease) Increased BMI GERD (gastroesophageal reflux disease) Recurrent major depression-severe Acute post-traumatic stress disorder Injury, self-inflicted Suicidal ideation Self-harming behavior Intentional self-harm Suicidal ideation Borderline personality disorder Schizoaffective disorder Adjustment disorder Asthma Depression Anxiety PTSD (post-traumatic stress disorder) Family History Mother Brain cancer Other No family history of cardiac disease Social History Household Members: Unknown / Unable to assess Household Members Other:: prison staff and peers Housing: Other Housing Other:: Assisted Do you presently have visiting nurse or other home services: No Unable to assess alcohol history related to: Unable to respond Alcohol intake: never Comment: 1:1 sitter Patient Tobacco Use Status: Former Tobacco user Tobacco use type: Cigarette Cigarette Packs Per Day: 0.5 Cigarettes Per Day: 4 Years Smoked: 20 e-Cigarette/Vaping Use: Never Used Second Hand Smoke Exposure: Yes Substance Use Type: Marijuana service: No Sexual orientation: Straight/Heterosexual Meds Allergies Allergy/AdvReac Type Severity Reaction Status Date / Time carbamazepine [From TEGRETOL] AdvReac Mild Nausea and Verified 05/17/24 18:05 Vomiting topiramate [From Topamax] AdvReac Mild Nausea and Verified 05/17/24 18:05 Vomiting Active Medications: Current Medications Acetaminophen (Acetaminophen 325 Mg Tablet) 650 mg PO Q6H PRN PRN Reason: Headache/Pain Mild Scale (1-3) Al Hydroxide/Mg Hydroxide (Magnesium Hydrox/Alum Hydrox 30 Ml Oral.Susp) 30 ml PO Q6H PRN PRN Reason: Heartburn/Nausea Albuterol Sulfate (Albuterol Sulfate 90 Mcg 8 Gm Inhaler) 2 puff INHALE QID PRN PRN Reason: wheezing Benztropine Mesylate (Benztropine Mesylate 0.5 Mg Tablet) 0.5 mg PO BID [facility] Last Admin: 05/19/24 10:54 Dose: 0.5 mg Clonidine HCl (Clonidine Hcl 0.1 Mg Tablet) 0.1 mg PO TID [facility]; Protocol Last Admin: 05/19/24 11:08 Dose: 0.1 mg Diphenhydramine HCl (Diphenhydramine Hcl 25 Mg Capsule) 100 mg PO BEDTIME [facility] Last Admin: 05/18/24 19:11 Dose: 100 mg Duloxetine HCl (Duloxetine Hcl 60 Mg Capsule.Dr) 60 mg PO DAILY [facility] Last Admin: 05/19/24 10:54 Dose: 60 mg Haloperidol (Haloperidol 5 Mg Tablet) 5 mg PO TID PRN PRN Reason: hallucinations Last Admin: 05/19/24 10:53 Dose: 5 mg Hydroxyzine HCl (Hydroxyzine Hcl 25 Mg Tablet) 25 mg PO Q6H PRN PRN Reason: Anxiety Last Admin: 05/19/24 10:53 Dose: 25 mg Ibuprofen (Ibuprofen 600 Mg Tablet) 600 mg PO TID PRN PRN Reason: arthritis [place] Carbonate ([place] Carbonate 300 Mg Capsule) 300 mg PO BID [facility] Last Admin: 05/19/24 10:52 Dose: 300 mg Loratadine (Loratadine 10 Mg Tablet) 10 mg PO DAILY [facility] Last Admin: 05/19/24 10:52 Dose: 10 mg Lorazepam (Lorazepam 1 Mg Tablet) 1 mg PO DAILY PRN PRN Reason: anxiety/agitation Magnesium Hydroxide (Milk Of Magnesia 30 Ml Oral.Susp) 30 ml PO DAILY PRN PRN Reason: Constipation Multivitamins/Vitamin C (Multivitamin Tablet) 1 tab PO DAILY [facility] Last Admin: 05/19/24 10:53 Dose: 1 tab Non-Formulary Medication (Haloperidol Decanoate) 75 mg IM Q4W [facility] Non-Formulary Medication (Psyllium Husk [Daily Fiber]) 0.8 gm PO BID [facility] Omeprazole (Omeprazole 20 Mg Capsule.Dr) 20 mg PO Q48H [facility] Last Admin: 05/18/24 09:57 Dose: 20 mg Prazosin HCl (Prazosin Hcl 1 Mg Capsule) 1 mg PO BEDTIME [facility]; Protocol Last Admin: 05/18/24 19:11 Dose: 1 mg Prazosin HCl (Prazosin Hcl 5 Mg Capsule) 15 mg PO BEDTIME [facility]; Protocol Last Admin: 05/18/24 19:10 Dose: 15 mg Trazodone HCl (Trazodone Hcl 100 Mg Tablet) 200 mg PO BEDTIME [facility] Last Admin: 05/18/24 19:09 Dose: 200 mg Trazodone HCl (Trazodone Hcl 50 Mg Tablet) 50 mg PO BEDTIME MRX1 PRN PRN Reason: Insomnia Zolpidem Tartrate (Zolpidem Tartrate 5 Mg Tablet) 10 mg PO BEDTIME [facility] Last Admin: 05/18/24 19:10 Dose: 10 mg Home Medications ?Medication ?Instructions ?Recorded ?Confirmed ?Last Taken ?Type albuterol sulfate 90 mcg/actuation 2 puff inhalation QID PRN wheezing 04/30/24 05/17/24 Unknown History aerosol inhaler (Ventolin HFA) benztropine 0.5 mg tablet 0.5 mg PO BID 04/30/24 05/17/24 05/17/24 08:00 History clonidine HCl 0.1 mg tablet 0.1 mg PO TID 04/30/24 05/17/24 05/17/24 14:00 History diphenhydramine HCl 50 mg capsule 100 mg PO BEDTIME insomnia 04/30/24 05/17/24 05/16/24 20:00 History (Banophen) duloxetine 60 mg capsule,delayed 60 mg PO QAM 04/30/24 05/17/24 05/17/24 08:00 History release haloperidol 5 mg tablet 5 mg PO TID PRN hallucinations 04/30/24 05/17/24 Unknown History haloperidol decanoate 100 mg/mL 75 mg IM Q4W 04/30/24 05/17/24 Unknown History intramuscular solution lithium carbonate 300 mg tablet 300 mg PO BID 04/30/24 05/17/24 05/17/24 08:00 History omeprazole 20 mg capsule,delayed 20 mg PO Q OTHER DAY 04/30/24 05/17/24 05/16/24 06:35 History release prazosin 5 mg capsule 15 mg PO BEDTIME 04/30/24 05/17/24 05/16/24 20:00 History trazodone 100 mg tablet 200 mg PO BEDTIME insomnia 04/30/24 05/17/24 05/16/24 20:00 History cetirizine 10 mg tablet 10 mg PO DAILY 05/17/24 05/17/24 05/17/24 08:00 History ibuprofen 600 mg tablet 600 mg PO TID PRN arthritis 05/17/24 05/17/24 Unknown History multivitamin 1 tab PO DAILY 05/17/24 05/17/24 05/17/24 08:00 History prazosin 1 mg capsule 1 mg PO BEDTIME 05/17/24 05/17/24 05/16/24 21:00 History psyllium husk 0.4 gram capsule 0.8 g PO BID 05/17/24 05/17/24 05/17/24 08:00 History (Daily Fiber) zolpidem 10 mg tablet 10 mg PO BEDTIME insomnia 05/17/24 05/17/24 05/16/24 20:00 History Physical Exam Vital Signs and Narrative: Vital Signs: Last Vital Signs Temp 98.6 F 05/18/24 20:00 Pulse 64 05/18/24 20:00 Resp 16 05/18/24 20:00 BP 152/97 H 05/19/24 11:08 Pulse Ox 98 05/18/24 20:00 O2 Del Method Room Air 05/18/24 20:00 BMI result Body Mass Index 40.6 General: AOx3, no acute distress Resp: CTA bilaterally CVS: S1, S2, RRR GI: +BS, NT, no distention Skin: Warm, dry Neuro: Cranial nerves II-XII grossly intact bilaterally. Motor grossly intact bilaterally Extremities: No edema Psych: Appropriate affect Results Labs 05/17/24 21:44 05/18/24 08:26 Assessment and Plan (1) Pre-op evaluation: Status: Resolved Plan Patient is a 39-year-old female with a PMH significant for COPD/asthma overlap syndrome, GERD, PTSD, schizoaffective disorder, and borderline personality disorder admitted to [facility] unit with consult placed to hospitalist services for ECT clearance. ECT pre-op evaluation Patient has undergone ECT multiple times in the past without incident, most recently last month Review of past EKGs without ischemic changes or prolonged QTc; currently denies chest pain/pressure or palpitations No previous known difficulties with anesthesia Revised cardiac risk index: 0 points Based on examined patient history, there are no medical contraindications to patient undergoing ECT Thank you for allowing us to participate in the care of this patient. Signing off at this time. Please re-consult if any acute complaints or issues arise.
[2024-05-19 18:17] VITALS: BP 115/79
[2024-05-19 20:00] VITALS: BP 118/68; PULSE 76; RESP 16; TEMP 36.8; O2SAT 97
[2024-05-19] MEDS: traZODone HCL 100 MG TABLET 200 MG PO (20:04)
[2024-05-19] MEDS: Prazosin HCL 1 MG CAPSULE PO (20:04)
[2024-05-19] MEDS: Zolpidem Tartrate 5 MG TABLET 10 MG PO (20:04)
[2024-05-19] MEDS: Prazosin HCL 5 MG CAPSULE 15 MG PO (20:04)
[2024-05-19] MEDS: diphenhydrAMINE HCL 25 MG CAPSULE 100 MG PO (20:05)
[2024-05-19] MEDS: LORazepam 2 MG/ML VIAL 1 MG IM (21:19)
[2024-05-19] MEDS: Haloperidol Lactate 5 MG/ML VIAL IM (21:19)
--- NOTE | 2024-05-20 08:56 | P.PNPSI_ITS ---
Subjective Subjective Date of Service: 05/20/24 Reason For Visit: SI Interim History: With patient; discussed with team pt says it's rough... and having trouble abstaining from self-harm; intermittently hitting her face. Continued nightmares. Grateful ECT wednesday Mental Status Exam Mental Status Exam Narrative: Pt is alert and oriented; behavior is lying in bed, quiet, intermittently smacking her head with palm; dressed in hospital gown with unkempt hair, puffy face; numerous of scars up and down bilateral forearms from hx of superficial cutting; mood is described as depressed and affect congruent, downcast, distant; eye contact appropriate; Speech is slowed, quiet; normal prosody; psychomotor retardation present; thought process is goal directed; Thought content is on missing her sister, self-harm; otherwise pertinent to relevant topics and without any delusional content, paranoid ideations or grandiosity; +SI; no HI. Report AH; Patients insight and judgment are impaired. Diagnostics Vital Signs (24Hr): Vital Signs - 24 hr 05/19/24 10:52 05/19/24 11:08 05/19/24 18:17 Temperature 98.6 F Pulse Rate 82 Respiratory Rate 16 Blood Pressure 136/66 152/97 H 115/79 Pulse Oximetry 98 Oxygen Delivery Method Room Air 05/19/24 20:00 Temperature 98.2 F Pulse Rate 76 Respiratory Rate 16 Blood Pressure 118/68 Pulse Oximetry 97 Oxygen Delivery Method BMI result Body Mass Index 40.6 Labs 05/17/24 21:44 05/18/24 08:26 Labs: Laboratory Results - last 48 hr 05/18/24 05/18/24 08:26 09:04 Sodium 141 Potassium 4.0 Chloride 111 H Carbon Dioxide 22 Anion Gap 12 BUN 5 L Creatinine 0.68 Estim Creat Clear Calc 110.4 Estimated GFR > 60 Fasting Glucose 107 H Calcium 9.7 Total Bilirubin 0.3 AST 12 ALT 9 Alkaline Phosphatase 61 Total Protein 6.8 Albumin 3.9 Triglycerides 86 Cholesterol 159 LDL Cholesterol, Calc 87 HDL Cholesterol 55 Urine Color Straw Urine Appearance Clear Urine pH 6.5 Ur Specific [place] 1.015 Urine Protein Negative Urine Glucose (UA) Negative Urine Ketones Negative Urine Blood Negative Urine Nitrite Negative Ur Leukocyte Esterase Negative Urine Opiates Screen Not Detected Ur Buprenorphine Scrn Not Detected Ur Oxycodone Screen Not Detected Urine Methadone Screen Not Detected Urine Fentanyl Screen Not Detected Ur Barbiturates Screen Not Detected Ur Phencyclidine Scrn Not Detected Ur Amphetamines Screen Not Detected U Benzodiazepines Scrn POSITIVE H Urine Cocaine Screen Not Detected U Marijuana (THC) Screen POSITIVE H Medications Medications Current Medications Acetaminophen (Acetaminophen 325 Mg Tablet) 650 mg PO Q6H PRN PRN Reason: Headache/Pain Mild Scale (1-3) Al Hydroxide/Mg Hydroxide (Magnesium Hydrox/Alum Hydrox 30 Ml Oral.Susp) 30 ml PO Q6H PRN PRN Reason: Heartburn/Nausea Albuterol Sulfate (Albuterol Sulfate 90 Mcg 8 Gm Inhaler) 2 puff INHALE QID PRN PRN Reason: wheezing Benztropine Mesylate (Benztropine Mesylate 0.5 Mg Tablet) 0.5 mg PO BID [facility] Last Admin: 05/19/24 20:05 Dose: 0.5 mg Clonidine HCl (Clonidine Hcl 0.1 Mg Tablet) 0.1 mg PO TID [facility]; Protocol Last Admin: 05/19/24 20:05 Dose: 0.1 mg Diphenhydramine HCl (Diphenhydramine Hcl 25 Mg Capsule) 100 mg PO BEDTIME [facility] Last Admin: 05/19/24 20:05 Dose: 100 mg Duloxetine HCl (Duloxetine Hcl 60 Mg Capsule.Dr) 60 mg PO DAILY [facility] Last Admin: 05/19/24 10:54 Dose: 60 mg Haloperidol (Haloperidol 5 Mg Tablet) 5 mg PO TID PRN PRN Reason: hallucinations Last Admin: 05/19/24 18:18 Dose: 5 mg Hydroxyzine HCl (Hydroxyzine Hcl 25 Mg Tablet) 25 mg PO Q6H PRN PRN Reason: Anxiety Last Admin: 05/19/24 10:53 Dose: 25 mg Ibuprofen (Ibuprofen 600 Mg Tablet) 600 mg PO TID PRN PRN Reason: arthritis [place] Carbonate ([place] Carbonate 300 Mg Capsule) 300 mg PO BID [facility] Last Admin: 05/19/24 20:05 Dose: 300 mg Loratadine (Loratadine 10 Mg Tablet) 10 mg PO DAILY [facility] Last Admin: 05/19/24 10:52 Dose: 10 mg Lorazepam (Lorazepam 1 Mg Tablet) 1 mg PO TID PRN PRN Reason: anxiety/agitation Last Admin: 05/19/24 20:05 Dose: 1 mg Magnesium Hydroxide (Milk Of Magnesia 30 Ml Oral.Susp) 30 ml PO DAILY PRN PRN Reason: Constipation Multivitamins/Vitamin C (Multivitamin Tablet) 1 tab PO DAILY [facility] Last Admin: 05/19/24 10:53 Dose: 1 tab Non-Formulary Medication (Haloperidol Decanoate) 75 mg IM Q4W [facility] Non-Formulary Medication (Psyllium Husk [Daily Fiber]) 0.8 gm PO BID [facility] Omeprazole (Omeprazole 20 Mg Capsule.Dr) 20 mg PO Q48H [facility] Last Admin: 05/18/24 09:57 Dose: 20 mg Prazosin HCl (Prazosin Hcl 1 Mg Capsule) 1 mg PO BEDTIME [facility]; Protocol Last Admin: 05/19/24 20:04 Dose: 1 mg Prazosin HCl (Prazosin Hcl 5 Mg Capsule) 15 mg PO BEDTIME [facility]; Protocol Last Admin: 05/19/24 20:04 Dose: 15 mg Trazodone HCl (Trazodone Hcl 100 Mg Tablet) 200 mg PO BEDTIME [facility] Last Admin: 05/19/24 20:04 Dose: 200 mg Trazodone HCl (Trazodone Hcl 50 Mg Tablet) 50 mg PO BEDTIME MRX1 PRN PRN Reason: Insomnia Zolpidem Tartrate (Zolpidem Tartrate 5 Mg Tablet) 10 mg PO BEDTIME [facility] Last Admin: 05/19/24 20:04 Dose: 10 mg Allergies Allergies Allergy/AdvReac Type Severity Reaction Status Date / Time carbamazepine [From TEGRETOL] AdvReac Mild Nausea and Verified 05/17/24 18:05 Vomiting topiramate [From Topamax] AdvReac Mild Nausea and Verified 05/17/24 18:05 Vomiting Assessment & Plan Assessment & Plan (1) Chronic post-traumatic stress disorder (PTSD): Status: Chronic Code(s): F43.12 - Post-traumatic stress disorder, chronic (2) Borderline personality disorder: Status: Chronic Code(s): F60.3 - Borderline personality disorder Plan Pt is a 39 y.o. female, with? PTSD with extensive trauma history, and BPD, (carries a dx of schizoaffective DO, depressive type),chronic SI, chronic self- harming urges/ behaviors and multiple inpatient admissions/ED visits who presents for SI and increased urges to self-harm following relational strife at long term. Initially Patient is not sure why she decompensated starting about a week ago. On further discussion she says there is a peer at the long term has been there longer than her and she started to think that the long term staff felt emotionally closer to this peer which made patient feel lonely; patient then identified that the anniversary of her beloved sister's , June 18 is coming up and remembers that once May, she starts thinking about this upcoming anniversary. She also identifies that she has not had ECT in weeks and wonders if that is contributory. Otherwise Patient agrees that medications and intermittent ECT have been overall helpful. She says she feels unsafe with urges to self-harm. She is hoping that some rest, being away from long term and possibly ECT will help restabilize her. Hospital course: 05/20 continue tx plan Plan: CV 1:1 for safety Continue home medication regimen ECT #1 pending 05/22 -NPO adding PRN ativan Patient educated on: diagnosis, medication risk/benefits, ECT and therapeutic strategies Informed Consent: understands Reason for continued inpatient stay Substantial Risk for: harm to self Time Spent With Patient Time: Total time managing care of this patient today ____ minutes.
[2024-05-20] MEDS: LORazepam 1 MG TABLET PO ×3 (09:52→21:28)
[2024-05-20] MEDS: Lithium Carbonate 300 MG CAPSULE PO ×2 (09:52→21:27)
[2024-05-20] MEDS: Benztropine Mesylate 0.5 MG TABLET PO ×2 (09:52→21:27)
[2024-05-20] MEDS: Multivitamin TABLET 1 TAB PO (09:52)
[2024-05-20] MEDS: DULoxetine HCl 60 MG CAPSULE.DR PO (09:52)
[2024-05-20 09:53] VITALS: BP 122/75
[2024-05-20] MEDS: Omeprazole 20 MG CAPSULE.DR PO (09:53)
[2024-05-20] MEDS: Loratadine 10 MG TABLET PO (09:53)
[2024-05-20] MEDS: cloNIDine HCL 0.1 MG TABLET PO ×3 (09:53→21:27)
[2024-05-20] MEDS: HaloperidoL 5 MG TABLET PO ×2 (13:56→18:07)
[2024-05-20 17:55] VITALS: BP 117/67
[2024-05-20] MEDS: hydrOXYzine HCL 25 MG TABLET PO (18:07)
[2024-05-20] MEDS: Haloperidol Lactate 5 MG/ML VIAL IM (18:55)
[2024-05-20 20:00] VITALS: BP 95/51; PULSE 76; TEMP 36.7; O2SAT 91
[2024-05-20] MEDS: Prazosin HCL 5 MG CAPSULE 15 MG PO (21:26)
[2024-05-20] MEDS: diphenhydrAMINE HCL 25 MG CAPSULE 100 MG PO (21:26)
[2024-05-20] MEDS: Zolpidem Tartrate 5 MG TABLET 10 MG PO (21:27)
[2024-05-20] MEDS: Prazosin HCL 1 MG CAPSULE PO (21:27)
[2024-05-20] MEDS: traZODone HCL 100 MG TABLET 200 MG PO (21:27)
[2024-05-20] MEDS: traZODone HCL 50 MG TABLET PO (21:27)
[2024-05-21] VITALS (8 sets, daily range): BP systolic 88–112; BP diastolic 50–76; PULSE 68–78; RESP 16; TEMP 36.8–37; O2SAT 96–98
[2024-05-21] MEDS: hydrOXYzine HCL 25 MG TABLET PO ×2 (03:53→17:10)
[2024-05-21] MEDS: HaloperidoL 5 MG TABLET PO ×3 (03:53→17:32)
[2024-05-21] MEDS: Loratadine 10 MG TABLET PO (09:57)
[2024-05-21] MEDS: cloNIDine HCL 0.1 MG TABLET PO ×3 (09:58→20:34)
[2024-05-21] MEDS: DULoxetine HCl 60 MG CAPSULE.DR PO (09:58)
[2024-05-21] MEDS: Benztropine Mesylate 0.5 MG TABLET PO ×2 (09:58→20:35)
[2024-05-21] MEDS: Multivitamin TABLET 1 TAB PO (09:58)
[2024-05-21] MEDS: Lithium Carbonate 300 MG CAPSULE PO (09:58)
--- NOTE | 2024-05-21 10:06 | P.PNPSI_ITS ---
Subjective Subjective Date of Service: 05/21/24 Reason For Visit: SI Interim History: Met with patient; discussed with team Remains lying in the room, in the dark, not talking much. Still struggling with intense urges to self-harm but today has kept herself from it. Plans for ECT tomorrow Mental Status Exam Mental Status Exam Narrative: Pt is alert and oriented; behavior is lying in bed, quiet, intermittently smacking her head with palm; dressed in hospital gown with unkempt hair, puffy face; numerous of scars up and down bilateral forearms from hx of superficial cutting; mood is described as depressed and affect congruent, downcast, distant; eye contact appropriate; Speech is slowed, quiet; normal prosody; psychomotor retardation present; thought process is goal directed; Thought content is on missing her sister, self-harm; otherwise pertinent to relevant topics and without any delusional content, paranoid ideations or grandiosity; +SI; no HI. Report AH; Patients insight and judgment are impaired. Diagnostics Vital Signs (24Hr): Vital Signs - 24 hr 05/20/24 17:55 05/20/24 20:00 05/21/24 09:58 Temperature 98.1 F Pulse Rate 76 Blood Pressure 117/67 95/51 L 112/76 Pulse Oximetry 91 L Oxygen Delivery Method Room Air BMI result Body Mass Index 40.6 Labs 05/17/24 21:44 05/18/24 08:26 Medications Medications Current Medications Acetaminophen (Acetaminophen 325 Mg Tablet) 650 mg PO Q6H PRN PRN Reason: Headache/Pain Mild Scale (1-3) Al Hydroxide/Mg Hydroxide (Magnesium Hydrox/Alum Hydrox 30 Ml Oral.Susp) 30 ml PO Q6H PRN PRN Reason: Heartburn/Nausea Albuterol Sulfate (Albuterol Sulfate 90 Mcg 8 Gm Inhaler) 2 puff INHALE QID PRN PRN Reason: wheezing Benztropine Mesylate (Benztropine Mesylate 0.5 Mg Tablet) 0.5 mg PO BID [facility] Last Admin: 05/21/24 09:58 Dose: 0.5 mg Clonidine HCl (Clonidine Hcl 0.1 Mg Tablet) 0.1 mg PO TID [facility]; Protocol Last Admin: 05/21/24 09:58 Dose: 0.1 mg Diphenhydramine HCl (Diphenhydramine Hcl 25 Mg Capsule) 100 mg PO BEDTIME [facility] Last Admin: 05/20/24 21:26 Dose: 100 mg Duloxetine HCl (Duloxetine Hcl 60 Mg Capsule.) 60 mg PO DAILY [facility] Last Admin: 05/21/24 09:58 Dose: 60 mg Haloperidol (Haloperidol 5 Mg Tablet) 5 mg PO TID PRN PRN Reason: hallucinations Last Admin: 05/21/24 03:53 Dose: 5 mg Hydroxyzine HCl (Hydroxyzine Hcl 25 Mg Tablet) 25 mg PO Q6H PRN PRN Reason: Anxiety Last Admin: 05/21/24 03:53 Dose: 25 mg Ibuprofen (Ibuprofen 600 Mg Tablet) 600 mg PO TID PRN PRN Reason: arthritis [place] Carbonate ([place] Carbonate 300 Mg Capsule) 300 mg PO BID [facility] Last Admin: 05/21/24 09:58 Dose: 300 mg Loratadine (Loratadine 10 Mg Tablet) 10 mg PO DAILY [facility] Last Admin: 05/21/24 09:57 Dose: 10 mg Lorazepam (Lorazepam 1 Mg Tablet) 1 mg PO TID PRN PRN Reason: anxiety/agitation Last Admin: 05/20/24 21:28 Dose: 1 mg Magnesium Hydroxide (Milk Of Magnesia 30 Ml Oral.Susp) 30 ml PO DAILY PRN PRN Reason: Constipation Multivitamins/Vitamin C (Multivitamin Tablet) 1 tab PO DAILY [facility] Last Admin: 05/21/24 09:58 Dose: 1 tab Non-Formulary Medication (Haloperidol Decanoate) 75 mg IM Q4W [facility] Non-Formulary Medication (Psyllium Husk [Daily Fiber]) 0.8 gm PO BID [facility] Omeprazole (Omeprazole 20 Mg Capsule.) 20 mg PO Q48H [facility] Last Admin: 05/20/24 09:53 Dose: 20 mg Prazosin HCl (Prazosin Hcl 1 Mg Capsule) 1 mg PO BEDTIME [facility]; Protocol Last Admin: 05/20/24 21:27 Dose: 1 mg Prazosin HCl (Prazosin Hcl 5 Mg Capsule) 15 mg PO BEDTIME [facility]; Protocol Last Admin: 05/20/24 21:26 Dose: 15 mg Trazodone HCl (Trazodone Hcl 100 Mg Tablet) 200 mg PO BEDTIME [facility] Last Admin: 05/20/24 21:27 Dose: 200 mg Trazodone HCl (Trazodone Hcl 50 Mg Tablet) 50 mg PO BEDTIME MRX1 PRN PRN Reason: Insomnia Last Admin: 05/20/24 21:27 Dose: 50 mg Zolpidem Tartrate (Zolpidem Tartrate 5 Mg Tablet) 10 mg PO BEDTIME [facility] Last Admin: 05/20/24 21:27 Dose: 10 mg Allergies Allergies Allergy/AdvReac Type Severity Reaction Status Date / Time carbamazepine [From TEGRETOL] AdvReac Mild Nausea and Verified 05/17/24 18:05 Vomiting topiramate [From Topamax] AdvReac Mild Nausea and Verified 05/17/24 18:05 Vomiting Assessment & Plan Assessment & Plan (1) Chronic post-traumatic stress disorder (PTSD): Status: Chronic Code(s): F43.12 - Post-traumatic stress disorder, chronic (2) Borderline personality disorder: Status: Chronic Code(s): F60.3 - Borderline personality disorder Plan Pt is a 39 y.o. female, with? PTSD with extensive trauma history, and BPD, (carries a dx of schizoaffective DO, depressive type),chronic SI, chronic self- harming urges/ behaviors and multiple inpatient admissions/ED visits who presents for SI and increased urges to self-harm following relational strife at nursing home. Initially Patient is not sure why she decompensated starting about a week ago. On further discussion she says there is a peer at the nursing home has been there longer than her and she started to think that the nursing home staff felt emotionally closer to this peer which made patient feel lonely; patient then identified that the anniversary of her beloved sister's , June 18 is coming up and remembers that once May, she starts thinking about this upcoming anniversary. She also identifies that she has not had ECT in weeks and wonders if that is contributory. Otherwise Patient agrees that medications and intermittent ECT have been overall helpful. She says she feels unsafe with urges to self-harm. She is hoping that some rest, being away from nursing home and possibly ECT will help restabilize her. Hospital course: 05/20 continue tx plan 05/21 continue current treatment plan Plan: CV 1:1 for safety Continue home medication regimen ECT #1 pending 05/22 -NPO adding PRN ativan Patient educated on: diagnosis, ECT and therapeutic strategies Informed Consent: understands Reason for continued inpatient stay Substantial Risk for: inability to function Time Spent With Patient Time: Total time managing care of this patient today ____ minutes.
[2024-05-21] MEDS: LORazepam 1 MG TABLET PO (13:41)
[2024-05-21] MEDS: diphenhydrAMINE HCL 25 MG CAPSULE 100 MG PO (20:31)
[2024-05-21] MEDS: traZODone HCL 100 MG TABLET 200 MG PO (20:32)
[2024-05-21] MEDS: Prazosin HCL 5 MG CAPSULE 15 MG PO (20:33)
[2024-05-21] MEDS: Prazosin HCL 1 MG CAPSULE PO (20:35)
[2024-05-22] VITALS (12 sets, daily range): BP systolic 94–142; BP diastolic 56–93; PULSE 59–95; RESP 16–18; TEMP 36.3–37; O2SAT 95–98
--- NOTE | 2024-05-22 07:03 | MHC.SHP ---
Pre-Procedural Eval Section A - 24 Hr Update-Section A only Date of Service: 05/22/24 The patient is an INPATIENT: Yes Changes since office visit: No Cold of Flu in the past 2 weeks, No New Medical Problems, No Changes in Medication and No Patient answered all questions The patient has been examined within 24 hours of the surgical procedure. The History & Physical has been completed within 30 days and I have reviewed it.: Yes Section B - Complete if H&P > 30 days Chief Complaint: SI Details of Present Illness: Exacerbation of depression,now inpatient. Eager to have ECT for derpession Relevant Family History (Specify if Yes): Yes Relevant Social History: None Present Medications: see Short Stay Collaborative assessment Medical History: No relevant PMH History of Previous Operations: No relevant previous surgery Allergies: Allergies Allergy/AdvReac Type Severity Reaction Status Date / Time carbamazepine [From TEGRETOL] AdvReac Mild Nausea and Verified 05/17/24 18:05 Vomiting topiramate [From Topamax] AdvReac Mild Nausea and Verified 05/17/24 18:05 Vomiting Review of Systems Sugical H&P ROS: Negative: Constitution, Cardiovascular, Respiratory, Neurological, Psychiatric, Hem-Onc, Allergic/Immunologic, Gastrointestinal, Genitourinary, Musculoskeletal, Integumentary, Endocrine and Eyes/Ears/Nose/Throat Exam Surgical H&P Exam: Normal: HEENT, Normal: Heart, Normal: Lungs, Normal: Extremities, Normal: Abdomen, Normal: Skin and Normal: Neurological Plan Diagnosis/Plan: Unchanged I have reviewed the history and physical and performed a pertinent physical examination on my patient. No changes have occurred unless specified. Time Spent With Patient Time: Total time managing care of this patient today _30___ minutes.
--- NOTE | 2024-05-22 07:08 | P.CONAN_ITS ---
HPI - Anesthesia Eval Consult details Narrative: For ECT PMFSH Active Problems Active Problems: All Active Problems Suicidal ideation (Acute) Self-injurious behavior (Acute) Chronic post-traumatic stress disorder (PTSD) (Chronic) Schizoaffective disorder, depressive type (Chronic) Borderline personality disorder (Chronic) Auditory hallucinations (Acute) Port-A-Cath in place (Acute) Intentional self-harm (Acute) COPD (chronic obstructive pulmonary disease) (Acute) Asthma (Acute) Adjustment disorder (Acute) Anxiety (Acute) Injury of ligament of right knee (Acute) Sprain of anterior cruciate ligament of right knee (Acute) Hernia (Chronic) Increased BMI (Acute) GERD (gastroesophageal reflux disease) (Acute) Past Medical History Medical History Port-A-Cath in place History of electroconvulsive therapy COVID-19 COVID-19 Sprain of left foot Chronic post-traumatic stress disorder (PTSD) COPD (chronic obstructive pulmonary disease) Increased BMI GERD (gastroesophageal reflux disease) Recurrent major depression-severe Acute post-traumatic stress disorder Injury, self-inflicted Suicidal ideation Self-harming behavior Intentional self-harm Suicidal ideation Borderline personality disorder Schizoaffective disorder Adjustment disorder Asthma Depression Anxiety PTSD (post-traumatic stress disorder) Family History Family History Mother Brain cancer Other No family history of cardiac disease Family history of problems with anesthesia: No Surgical History History of Problems with Anesthesia: No Social History Social History Household Members: Unknown / Unable to assess Household Members Other:: care home staff and peers Housing: Other Housing Other:: Senior Living Do you presently have visiting nurse or other home services: No Unable to assess alcohol history related to: Unable to respond Alcohol intake: never Comment: 1:1 sitter Patient Tobacco Use Status: Former Tobacco user Tobacco use type: Cigarette Cigarette Packs Per Day: 0.5 Cigarettes Per Day: 4 Years Smoked: 20 e-Cigarette/Vaping Use: Never Used Second Hand Smoke Exposure: Yes Substance Use Type: Marijuana service: No Sexual orientation: Straight/Heterosexual Meds Allergies Allergy/AdvReac Type Severity Reaction Status Date / Time carbamazepine [From TEGRETOL] AdvReac Mild Nausea and Verified 05/17/24 18:05 Vomiting topiramate [From Topamax] AdvReac Mild Nausea and Verified 05/17/24 18:05 Vomiting Active Medications: Current Medications Acetaminophen (Acetaminophen 325 Mg Tablet) 650 mg PO Q6H PRN PRN Reason: Headache/Pain Mild Scale (1-3) Al Hydroxide/Mg Hydroxide (Magnesium Hydrox/Alum Hydrox 30 Ml Oral.Susp) 30 ml PO Q6H PRN PRN Reason: Heartburn/Nausea Albuterol Sulfate (Albuterol Sulfate 90 Mcg 8 Gm Inhaler) 2 puff INHALE QID PRN PRN Reason: wheezing Benztropine Mesylate (Benztropine Mesylate 0.5 Mg Tablet) 0.5 mg PO BID [facility] Last Admin: 05/21/24 20:35 Dose: 0.5 mg Clonidine HCl (Clonidine Hcl 0.1 Mg Tablet) 0.1 mg PO TID [facility]; Protocol Last Admin: 05/21/24 20:34 Dose: 0.1 mg Diphenhydramine HCl (Diphenhydramine Hcl 25 Mg Capsule) 100 mg PO BEDTIME [facility] Last Admin: 05/21/24 20:31 Dose: 100 mg Duloxetine HCl (Duloxetine Hcl 60 Mg Capsule.Dr) 60 mg PO DAILY [facility] Last Admin: 05/21/24 09:58 Dose: 60 mg Haloperidol (Haloperidol 5 Mg Tablet) 5 mg PO TID PRN PRN Reason: hallucinations Last Admin: 05/21/24 17:32 Dose: 5 mg Hydroxyzine HCl (Hydroxyzine Hcl 25 Mg Tablet) 25 mg PO Q6H PRN PRN Reason: Anxiety Last Admin: 05/21/24 17:10 Dose: 25 mg Ibuprofen (Ibuprofen 600 Mg Tablet) 600 mg PO TID PRN PRN Reason: arthritis [place] Carbonate ([place] Carbonate 300 Mg Capsule) 300 mg PO BID [facility] Last Admin: 05/21/24 21:05 Dose: Not Given Loratadine (Loratadine 10 Mg Tablet) 10 mg PO DAILY [facility] Last Admin: 05/21/24 09:57 Dose: 10 mg Lorazepam (Lorazepam 1 Mg Tablet) 1 mg PO TID PRN PRN Reason: anxiety/agitation Last Admin: 05/21/24 13:41 Dose: 1 mg Magnesium Hydroxide (Milk Of Magnesia 30 Ml Oral.Susp) 30 ml PO DAILY PRN PRN Reason: Constipation Multivitamins/Vitamin C (Multivitamin Tablet) 1 tab PO DAILY [facility] Last Admin: 05/21/24 09:58 Dose: 1 tab Non-Formulary Medication (Haloperidol Decanoate) 75 mg IM Q4W [facility] Non-Formulary Medication (Psyllium Husk [Daily Fiber]) 0.8 gm PO BID [facility] Omeprazole (Omeprazole 20 Mg Capsule.Dr) 20 mg PO Q48H [facility] Last Admin: 05/20/24 09:53 Dose: 20 mg Prazosin HCl (Prazosin Hcl 1 Mg Capsule) 1 mg PO BEDTIME [facility]; Protocol Last Admin: 05/21/24 20:35 Dose: 1 mg Prazosin HCl (Prazosin Hcl 5 Mg Capsule) 15 mg PO BEDTIME [facility]; Protocol Last Admin: 05/21/24 20:33 Dose: 15 mg Trazodone HCl (Trazodone Hcl 100 Mg Tablet) 200 mg PO BEDTIME [facility] Last Admin: 05/21/24 20:32 Dose: 200 mg Trazodone HCl (Trazodone Hcl 50 Mg Tablet) 50 mg PO BEDTIME MRX1 PRN PRN Reason: Insomnia Last Admin: 05/20/24 21:27 Dose: 50 mg Zolpidem Tartrate (Zolpidem Tartrate 5 Mg Tablet) 10 mg PO BEDTIME [facility] Last Admin: 05/21/24 20:44 Dose: Not Given Home Medications ?Medication ?Instructions ?Recorded ?Confirmed ?Last Taken ?Type albuterol sulfate 90 mcg/actuation 2 puff inhalation QID PRN wheezing 04/30/24 05/17/24 Unknown History aerosol inhaler (Ventolin HFA) benztropine 0.5 mg tablet 0.5 mg PO BID 04/30/24 05/17/24 05/17/24 08:00 History clonidine HCl 0.1 mg tablet 0.1 mg PO TID 04/30/24 05/17/24 05/17/24 14:00 History diphenhydramine HCl 50 mg capsule 100 mg PO BEDTIME insomnia 04/30/24 05/17/24 05/16/24 20:00 History (Banophen) duloxetine 60 mg capsule,delayed 60 mg PO QAM 04/30/24 05/17/24 05/17/24 08:00 History release haloperidol 5 mg tablet 5 mg PO TID PRN hallucinations 04/30/24 05/17/24 Unknown History haloperidol decanoate 100 mg/mL 75 mg IM Q4W 04/30/24 05/17/24 Unknown History intramuscular solution lithium carbonate 300 mg tablet 300 mg PO BID 04/30/24 05/17/24 05/17/24 08:00 History omeprazole 20 mg capsule,delayed 20 mg PO Q OTHER DAY 04/30/24 05/17/24 05/16/24 06:35 History release prazosin 5 mg capsule 15 mg PO BEDTIME 04/30/24 05/17/24 05/16/24 20:00 History trazodone 100 mg tablet 200 mg PO BEDTIME insomnia 04/30/24 05/17/24 05/16/24 20:00 History cetirizine 10 mg tablet 10 mg PO DAILY 05/17/24 05/17/24 05/17/24 08:00 History ibuprofen 600 mg tablet 600 mg PO TID PRN arthritis 05/17/24 05/17/24 Unknown History multivitamin 1 tab PO DAILY 05/17/24 05/17/24 05/17/24 08:00 History prazosin 1 mg capsule 1 mg PO BEDTIME 05/17/24 05/17/24 05/16/24 21:00 History psyllium husk 0.4 gram capsule 0.8 g PO BID 05/17/24 05/17/24 05/17/24 08:00 History (Daily Fiber) zolpidem 10 mg tablet 10 mg PO BEDTIME insomnia 05/17/24 05/17/24 05/16/24 20:00 History Exam Height,Weight and Vital Signs: Height 4 ft 11 in Weight 91.172 kg Last Vital Signs Temp 97.9 F 05/22/24 06:56 Pulse 81 05/22/24 06:56 Resp 16 05/22/24 06:56 BP 127/84 05/22/24 06:56 Pulse Ox 97 05/22/24 06:56 O2 Del Method Room Air 05/22/24 06:56 Pertinent Lab Results Pertinent Lab Results: Laboratory Tests 05/17/24 05/18/24 05/18/24 21:44 08:26 09:04 WBC 8.6 RBC 3.56 L Hgb 10.6 L Hct 33.3 L MCV 93.5 MCH 29.8 MCHC 31.8 RDW 13.1 Plt Count 256 MPV 11.5 Immature Gran % (Auto) 0.4 Neut % (Auto) 74.5 H Lymph % (Auto) 17.7 L [place] % (Auto) 5.6 Eos % (Auto) 1.3 Baso % (Auto) 0.5 Lymph # (Auto) 1.5 [place] # (Auto) 0.5 Eos # (Auto) 0.1 Baso # (Auto) 0.0 Abs Immat Gran (auto) 0.03 Absolute Neuts (auto) 6.4 Absolute Nucleated RBC 0.000 Nucleated RBC % (auto) 0.0 Sodium 139 141 Potassium 4.0 4.0 Chloride 110 H 111 H Carbon Dioxide 22 22 Anion Gap 11 L 12 BUN 6 L 5 L Creatinine 0.68 0.68 Estim Creat Clear Calc 110.4 110.4 Estimated GFR > 60 > 60 Random Glucose 95 Fasting Glucose 107 H Calcium 9.3 9.7 Total Bilirubin 0.3 0.3 AST 13 12 ALT 8 9 Alkaline Phosphatase 52 61 Total Protein 6.3 L 6.8 Albumin 3.7 3.9 Triglycerides 86 Cholesterol 159 LDL Cholesterol, Calc 87 HDL Cholesterol 55 Beta HCG, Quant < 2 Urine Color Straw Urine Appearance Clear Urine pH 6.5 Ur Specific [place] 1.015 Urine Protein Negative Urine Glucose (UA) Negative Urine Ketones Negative Urine Blood Negative Urine Nitrite Negative Ur Leukocyte Esterase Negative Salicylates < 5.0 L Urine Opiates Screen Not Detected Ur Buprenorphine Scrn Not Detected Ur Oxycodone Screen Not Detected Urine Methadone Screen Not Detected Urine Fentanyl Screen Not Detected Acetaminophen < 3 Ur Barbiturates Screen Not Detected Ur Phencyclidine Scrn Not Detected Ur Amphetamines Screen Not Detected U Benzodiazepines Scrn POSITIVE H [place] 0.48 L Urine Cocaine Screen Not Detected U Marijuana (THC) Screen POSITIVE H Ethyl Alcohol < 10 Airway Mallampati Class: II TM Dist: <=3cm Neck ROM: Full Loose/Missing/Broken Teeth: Yes and Lower Heart: ok Lungs: ok Assessment and Plan Assessment Anesthesia Assessment: Anesthesia Plan Discussed and Chart Reviewed Final Anesthetic Review Family History of Problems with Anesthesia: No History of Problems with Anesthesia: No NPO: Yes ASA Class: III Final Preanesthetic Review: No Changes in Pt Med Stat, Meds/Allgs Chart Reviewed, Consent Obtained/Reviewed and Anes Risks/Benef Reviewed Patient Risk: Intermediate Procedure Risk: Intermediate Anesthetic Plan Anesthetic Plan: GA and Agree w/ Assess. and Plan Disposition: Standard PACU
--- NOTE | 2024-05-22 08:10 | HO.ECTPROC ---
ECT Procedure Note Diagnosis/Treatment Date of Service: 05/22/24 Diagnosis: Schizoaffective Disorder Previous ECT Date: 05/19/24 Treatment: Series Interval Clinical Notes: The patient reported exacerbation of depression, now inpatient. No side effects with previous ECT. Today, ECT done as usual, no complications, woke up well. She had a 22s seizure that the EEG didn't record it. Time: Total time managing care of this patient today ____ minutes. ECT Settings Device: THYMATRON DGx Electrode Placement: Bitemporal Program/Pulse Width: 0.50 Energy Percent: 100 Seizure Duration By EEG (in seconds): 22 By Motor Observation (in seconds): 15 Medications Administration General Anesthetic: Etomidate (14) Muscle Relaxant: Succinylcholine (100) Airway Management Airway Management: Bag Mask Ventilation Treatment Recommendations No Changes Recommended: No change Pt Tolerated Procedure w/o Issue: Yes
--- NOTE | 2024-05-22 09:27 | P.PNPSI_ITS ---
Subjective Subjective Date of Service: 05/22/24 Reason For Visit: SI Interim History: Patient; discussed with team Patient says she is feeling better and getting close to being her regular self. Patient reports she has thought through and processed her feelings and feels that this episode of dysregulation is over. She feels safe to go home and says the urges to self-harm are much less and she is able to refrain. Patient is asking for discharge. She had ECT today in feels that it was very helpful. Mental Status Exam Mental Status Exam Narrative: Pt is alert and oriented; behavior is lying in bed, quiet; dressed in hospital gown with unkempt hair, numerous of scars up and down bilateral forearms from hx of superficial cutting; mood is described as okay and affect congruent, a little brighter; eye contact appropriate; Speech is still somewhat slowed, quiet; normal prosody; psychomotor retardation present; thought process is goal directed; Thought content is on missing her sister, avoiding self-harm; otherwise pertinent to relevant topics and without any delusional content, paranoid ideations or grandiosity; no SI; no HI. Reports intermittent AH; Patients insight and judgment are impaired but improved, at baseline and adequate. Diagnostics Vital Signs (24Hr): Vital Signs - 24 hr 05/21/24 09:58 05/21/24 10:00 05/21/24 17:10 Temperature 98.6 F Pulse Rate 71 Respiratory Rate 16 Blood Pressure 112/76 112/76 112/55 L Pulse Oximetry 96 Oxygen Delivery Method Room Air 05/21/24 20:00 05/21/24 20:25 05/21/24 20:33 Temperature 98.2 F Pulse Rate 68 78 Respiratory Rate Blood Pressure 88/50 L 107/58 L 107/58 L Pulse Oximetry 98 Oxygen Delivery Method Room Air 05/21/24 20:34 05/21/24 20:35 05/22/24 06:56 Temperature 97.9 F Pulse Rate 81 Respiratory Rate 16 Blood Pressure 107/58 L 107/58 L 127/84 Pulse Oximetry 97 Oxygen Delivery Method Room Air 05/22/24 08:23 05/22/24 08:28 05/22/24 08:33 Temperature 98.6 F Pulse Rate 94 95 95 Respiratory Rate 18 16 16 Blood Pressure 138/92 H 142/93 H 110/63 Pulse Oximetry 96 95 95 Oxygen Delivery Method Room Air Room Air Room Air 05/22/24 08:38 05/22/24 08:53 05/22/24 09:08 Temperature 97.6 F Pulse Rate 92 87 88 Respiratory Rate 16 16 18 Blood Pressure 116/69 113/62 113/67 Pulse Oximetry 95 96 98 Oxygen Delivery Method Room Air Room Air Room Air BMI result Body Mass Index 40.6 Labs 05/17/24 21:44 05/18/24 08:26 Medications Medications Current Medications Acetaminophen (Acetaminophen 325 Mg Tablet) 650 mg PO Q6H PRN PRN Reason: Headache/Pain Mild Scale (1-3) Al Hydroxide/Mg Hydroxide (Magnesium Hydrox/Alum Hydrox 30 Ml Oral.Susp) 30 ml PO Q6H PRN PRN Reason: Heartburn/Nausea Albuterol Sulfate (Albuterol Sulfate 90 Mcg 8 Gm Inhaler) 2 puff INHALE QID PRN PRN Reason: wheezing Benztropine Mesylate (Benztropine Mesylate 0.5 Mg Tablet) 0.5 mg PO BID [facility] Last Admin: 05/21/24 20:35 Dose: 0.5 mg Clonidine HCl (Clonidine Hcl 0.1 Mg Tablet) 0.1 mg PO TID [facility]; Protocol Last Admin: 05/21/24 20:34 Dose: 0.1 mg Diphenhydramine HCl (Diphenhydramine Hcl 25 Mg Capsule) 100 mg PO BEDTIME [facility] Last Admin: 05/21/24 20:31 Dose: 100 mg Duloxetine HCl (Duloxetine Hcl 60 Mg Capsule.Dr) 60 mg PO DAILY [facility] Last Admin: 05/21/24 09:58 Dose: 60 mg Haloperidol (Haloperidol 5 Mg Tablet) 5 mg PO TID PRN PRN Reason: hallucinations Last Admin: 05/21/24 17:32 Dose: 5 mg Hydroxyzine HCl (Hydroxyzine Hcl 25 Mg Tablet) 25 mg PO Q6H PRN PRN Reason: Anxiety Last Admin: 05/21/24 17:10 Dose: 25 mg Ibuprofen (Ibuprofen 600 Mg Tablet) 600 mg PO TID PRN PRN Reason: arthritis [place] Carbonate ([place] Carbonate 300 Mg Capsule) 300 mg PO BID [facility] Last Admin: 05/21/24 21:05 Dose: Not Given Loratadine (Loratadine 10 Mg Tablet) 10 mg PO DAILY [facility] Last Admin: 05/21/24 09:57 Dose: 10 mg Lorazepam (Lorazepam 1 Mg Tablet) 1 mg PO TID PRN PRN Reason: anxiety/agitation Last Admin: 05/21/24 13:41 Dose: 1 mg Magnesium Hydroxide (Milk Of Magnesia 30 Ml Oral.Susp) 30 ml PO DAILY PRN PRN Reason: Constipation Multivitamins/Vitamin C (Multivitamin Tablet) 1 tab PO DAILY [facility] Last Admin: 05/21/24 09:58 Dose: 1 tab Naloxone HCl (Naloxone Hcl 0.4 Mg/Ml Vial) 0.04 mg IVPUSH Q5M PRN PRN Reason: Excessive sedation or RR < 8 Non-Formulary Medication (Haloperidol Decanoate) 75 mg IM Q4W [facility] Omeprazole (Omeprazole 20 Mg Capsule.Dr) 20 mg PO Q48H [facility] Last Admin: 05/20/24 09:53 Dose: 20 mg Prazosin HCl (Prazosin Hcl 1 Mg Capsule) 1 mg PO BEDTIME [facility]; Protocol Last Admin: 05/21/24 20:35 Dose: 1 mg Prazosin HCl (Prazosin Hcl 5 Mg Capsule) 15 mg PO BEDTIME [facility]; Protocol Last Admin: 05/21/24 20:33 Dose: 15 mg Trazodone HCl (Trazodone Hcl 100 Mg Tablet) 200 mg PO BEDTIME [facility] Last Admin: 05/21/24 20:32 Dose: 200 mg Trazodone HCl (Trazodone Hcl 50 Mg Tablet) 50 mg PO BEDTIME MRX1 PRN PRN Reason: Insomnia Last Admin: 05/20/24 21:27 Dose: 50 mg Zolpidem Tartrate (Zolpidem Tartrate 5 Mg Tablet) 10 mg PO BEDTIME [facility] Last Admin: 05/21/24 20:44 Dose: Not Given Allergies Allergies Allergy/AdvReac Type Severity Reaction Status Date / Time carbamazepine [From TEGRETOL] AdvReac Mild Nausea and Verified 05/17/24 18:05 Vomiting topiramate [From Topamax] AdvReac Mild Nausea and Verified 05/17/24 18:05 Vomiting Assessment & Plan Assessment & Plan (1) Chronic post-traumatic stress disorder (PTSD): Status: Chronic Code(s): F43.12 - Post-traumatic stress disorder, chronic (2) Borderline personality disorder: Status: Chronic Code(s): F60.3 - Borderline personality disorder Plan Pt is a 39 y.o. female, with? PTSD with extensive trauma history, and BPD, (carries a dx of schizoaffective DO, depressive type),chronic SI, chronic self- harming urges/ behaviors and multiple inpatient admissions/ED visits who presents for SI and increased urges to self-harm following [facility] at [facility]. Initially Patient is not sure why she decompensated starting about a week ago. On further discussion she says there is a peer at the [facility] has been there longer than her and she started to think that the [facility] staff felt emotionally closer to this peer which made patient feel lonely; patient then identified that the anniversary of her beloved sister's , June 18 is coming up and remembers that once May, she starts thinking about this upcoming anniversary. She also identifies that she has not had ECT in weeks and wonders if that is contributory. Otherwise Patient agrees that medications and intermittent ECT have been overall helpful. She says she feels unsafe with urges to self-harm. She is hoping that some rest, being away from [facility] and possibly ECT will help restabilize her. Hospital course: 05/20 continue tx plan 05/21 continue current treatment plan 05/22 Patient says she is feeling better and getting close to being her regular self. Patient reports she has thought through and processed her feelings and feels that this episode of dysregulation is over. She feels safe to go home and says the urges to self-harm are much less and she is able to refrain. Patient is asking for discharge. She had ECT today in feels that it was very helpful. Patient is typically able to determine when she is safe to go home. And senior writer agrees that current milieu is triggering and could become counterproductive. Patient is heading towards baseline. She remains with intermittent urges to self-harm however this is chronic, part of her baseline and currently she is able to keep herself from it. Patient was [facility] to [facility] where patient feels supported. She is not in imminent risk for harm to self or others and request for discharge honored. Plan: CV 1:1 for safety Continue home medication regimen ECT #1 completed on 05/22 -NPO adding PRN ativan Patient educated on: diagnosis, medication risk/benefits, ECT and therapeutic strategies Informed Consent: understands Reason for continued inpatient stay Substantial Risk for: stable for discharge Time Spent With Patient Time: Total time managing care of this patient today ____ minutes.
--- NOTE | 2024-05-22 10:23 | HE.PHANOTE ---
RE: haldol injection Called patient's mother Kassidy and asked about last Haldol injection, she did not have a specific date but noted it wasn't that long ago. patient last got medication filled 05/11
[2024-05-22] MEDS: Loratadine 10 MG TABLET PO (11:08)
[2024-05-22] MEDS: DULoxetine HCl 60 MG CAPSULE.DR PO (11:08)
[2024-05-22] MEDS: Benztropine Mesylate 0.5 MG TABLET PO ×2 (11:08→19:32)
[2024-05-22] MEDS: Lithium Carbonate 300 MG CAPSULE PO ×2 (11:08→19:32)
[2024-05-22] MEDS: Multivitamin TABLET 1 TAB PO (11:08)
[2024-05-22] MEDS: cloNIDine HCL 0.1 MG TABLET PO (11:11)
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
[2024-05-22] MEDS: diphenhydrAMINE HCL 25 MG CAPSULE 100 MG PO (19:31)
[2024-05-22] MEDS: traZODone HCL 100 MG TABLET 200 MG PO (19:32)
[2024-05-22] MEDS: Zolpidem Tartrate 5 MG TABLET 10 MG PO (19:33)
[2024-05-22] MEDS: Prazosin HCL 1 MG CAPSULE PO (19:36)
[2024-05-22] MEDS: Prazosin HCL 5 MG CAPSULE 15 MG PO (19:36)
[2024-05-22] MEDS: hydrOXYzine HCL 25 MG TABLET PO (20:05)
[2024-05-22] MEDS: LORazepam 1 MG TABLET PO (20:05)
[2024-05-22] MEDS: HaloperidoL 5 MG TABLET PO (20:05)
[2024-05-23 08:00] VITALS: BP 98/54; PULSE 71; RESP 17; TEMP 36.4; O2SAT 95
[2024-05-23 08:10] VITALS: BP 98/54
[2024-05-23] MEDS: Multivitamin TABLET 1 TAB PO (08:11)
[2024-05-23] MEDS: Benztropine Mesylate 0.5 MG TABLET PO (08:11)
[2024-05-23] MEDS: Lithium Carbonate 300 MG CAPSULE PO (08:11)
[2024-05-23] MEDS: DULoxetine HCl 60 MG CAPSULE.DR PO (08:12)
[2024-05-23] MEDS: Loratadine 10 MG TABLET PO (08:12)
--- NOTE | 2024-05-23 14:05 | HO.POSTANES ---
Post Anesthesia Evaluation Post Anesthesia Evaluation Date of Service: 05/22/24 Vital Signs: Vital Signs Temp Pulse Resp BP Pulse Ox O2 Del Method 05/23/24 08:10 98/54 L 05/23/24 08:00 97.6 F 71 17 98/54 L 95 Room Air Anesthesia: General Mental Status: Awake Pain Control: Satisfactory Nausea/Vomiting: None Hydration: Adequate Anesthesia-Related Issues: No Anes. Related Issues
== END 2024-05-23 09:07 | disposition home or self-care (01) | DRG 752 ==
LOC: HO.ED 18:19 → HO.PM5 22:41
PROVIDERS: Psychiatry & Neurology Psychiatry; Admitting Provider Psychiatry & Neurology Psychiatry; Emergency Provider Emergency Medicine; PCP Nurse Practitioner Family; Visit Provider Psychiatry & Neurology Psychiatry
PROC: GZB4ZZZ Other Electroconvulsive Therapy (ICD-10-PCS; CPT 90870; principal; 2024-05-22 07:00)
DX: F60.3 Borderline personality disorder (principal); R45.851 Suicidal ideations; F43.12 Post-traumatic stress disorder, chronic; Z23 Encounter for immunization; Z87.891 Personal history of nicotine dependence; Z79.899 Other long term (current) drug therapy
CPT/HCPCS: 36415; 80053; 80061; 80143; 80178; 80179; 80307; 81003; 84702; 85025; 90656; 90870; 93005; 99285; J0330; J1630; J1642; J2060; J2250; J2405; S9485

== ENCOUNTER → 2024-05-17 22:32 | Outpatient (BNV) | payer OTHER, SELFPAY | PROVIDERS: Admitting Provider Psychiatry & Neurology Psychiatry; Emergency Provider Emergency Medicine; PCP Nurse Practitioner Family; Visit Provider Psychiatry & Neurology Psychiatry | DX: F60.3 Borderline personality disorder (principal); F43.12 Post-traumatic stress disorder, chronic | CPT/HCPCS: 90870; 99231; 99232 ==

== ENCOUNTER → 2024-05-17 22:32 | Outpatient (BNV) | payer OTHER, SELFPAY | PROVIDERS: Admitting Provider Psychiatry & Neurology Psychiatry; Emergency Provider Emergency Medicine; PCP Nurse Practitioner Family; Visit Provider Student in an Organized Health Care Education/Training Program | DX: J44.9 Chronic obstructive pulmonary disease, unspecified (principal); K21.9 Gastro-esophageal reflux disease without esophagitis | CPT/HCPCS: 99222 ==

== ENCOUNTER 2024-05-29 14:02 | Emergency (ER) | payer OTHER, SELFPAY ==
[2024-05-29 14:09] VITALS: BP 166/99; BP 98/73; PULSE 69; PULSE 88; RESP 15; TEMP 36.9; O2SAT 98; BMI 40.2
--- NOTE | 2024-05-29 14:50 | PC.NURSE ---
pt began to bang head against wall- this nurse and technicians to bedside- pt was able to be de-escalated and labs were obtained. airplane technician at bedside for safety at this time
[2024-05-29 14:54] LABS: Basophils Percent Auto 0.5 % (0-2); Eosinophils Absolute Auto 0.1 X10*3/uL (0.0-0.4); Eosinophils Percent Auto 1.7 % (0-4); Hematocrit 34.3 % (37.0-47.0); Hemoglobin 11.2 g/dl (12.0-16.0); Imm Gran Abs Auto 0.02 X10*3/uL (0.00-0.03); Imm Gran Pct Auto 0.3 % (0.0-0.4); Lymphocytes Absolute Auto 1.5 X10*3/uL (1.2-4.9); Lymphocytes Percent Auto 23.3 % (20-40); MANUAL DIFF FLAG SCAN; Mean Corpuscular HGB Conc 32.7 g/dl (31.0-35.0); Mean Corpuscular Hemoglobin 29.9 pg (27.0-33.0); Mean Corpuscular Volume 91.5 fL (80.0-98.0); Monocytes Absolute Auto 0.3 X10*3/uL (0.1-1.2); Monocytes Percent Auto 5.4 % (2-11); Neutrophils Absolute Auto 4.3 x10*3/uL (2.0-8.3); Neutrophils Percent Auto 68.8 % (45-73); PLT CLUMP 1; Red Blood Count 3.75 X10*6/uL (4.20-5.50); Red Cell Distribution Width 13.2 % (11.0-16.0); SCAN SMEAR FLAG 1
[2024-05-29 15:10] LABS: Alanine Aminotransferase 11 U/L (0-31); Alkaline Phosphatase 52 U/L (39-117); Anion Gap 11 (12-20); Aspartate Amino Transferase 12 U/L (5-31); Bilirubin Total 0.2 mg/dL (0.0-1.0); Blood Urea Nitrogen 7 mg/dL (9-16); Calcium 9.5 mg/dL (8.4-10.2); Carbon Dioxide 20 mmol/L (22-29); Chloride 108 mmol/L (96-108); Creatinine Clr Calc Pharmacy 93.3; Estimated Glomerular Filt Rate > 60; Glucose Random 95 mg/dL (60-115); Sodium 135 mmol/L (135-145); Total Protein 6.6 g/dL (6.5-8.0)
[2024-05-29 15:33] LABS: Acetaminophen LAB < 3 mcg/mL (<30); Salicylate < 5.0 mg/dL (15-30)
--- NOTE | 2024-05-29 15:38 | PC.NURSE ---
a&ox4. vss and up to date. [facility] from [facility] w/ increased depression and SI w/o a plan. pt verbalizes increase in life stressors in regards to family. pt states her sister a few years ago d/t traumatic incident and her anniversary is coming up. pt states she does not have a specific plan on how to she would harm herself but if she had the chance to, she would. upon ED arrival - pt seemingly distraught/upset. pt found to be hitting head against the wall in attempts to harm herself. no trauma noted after pt was de-escalated. pt verbalizes hx of self harm including cutting and hitting herself against the head with her fists as well as smashing her head against the wall. pt denies any hx of etoh/substance use aside from marijuana. daily smoker. labs/urine obtained sent to lab. no sob/wob noted. respirations even/unlabored. plan of care ongoing.
--- NOTE | 2024-05-29 15:51 | ED_ITS ---
HPI - Psych General Chief Complaint: Psychiatric Symptoms Stated Complaint: CRISIS SI Time Seen by Provider: 05/29/24 14:29 Source: patient, EMS, RN notes reviewed and old records reviewed Mode of arrival: EMS History of Present Illness ED Provider: Leyda Ahn PA-C HPI Narrative: 39-year-old female with a past medical history COPD, GERD, recurrent major depressive disorder, PTSD, schizoaffective, adjustment disorder, asthma, anxiety, presenting [facility] complaining of increased depression with suicidal ideations. Denies suicidal plan. Reports increasing life stressors, states this is the anniversary of her sister. Reports compliance with medications. Denies EtOH or illicit substance use. On arrival to ED patient hitting head against wall, and attempting self-harm. Denies HI or hallucinations. Denies CP/SOB, abdominal pain. Related Data Home Medications ?Medication ?Instructions ?Recorded ?Confirmed albuterol sulfate 90 mcg/actuation 2 puff inhalation QID PRN wheezing 04/30/24 05/29/24 aerosol inhaler (Ventolin HFA) benztropine 0.5 mg tablet 0.5 mg PO BID 04/30/24 05/29/24 clonidine HCl 0.1 mg tablet 0.1 mg PO TID 04/30/24 05/29/24 diphenhydramine HCl 50 mg capsule 100 mg PO BEDTIME insomnia 04/30/24 05/29/24 (Banophen) duloxetine 60 mg capsule,delayed 60 mg PO QAM 04/30/24 05/29/24 release haloperidol 5 mg tablet 5 mg PO TID PRN hallucinations 04/30/24 05/17/24 haloperidol decanoate 100 mg/mL 75 mg IM Q4W 04/30/24 05/29/24 intramuscular solution lithium carbonate 300 mg tablet 300 mg PO BID 04/30/24 05/29/24 omeprazole 20 mg capsule,delayed 20 mg PO Q OTHER DAY 04/30/24 05/29/24 release prazosin 5 mg capsule 15 mg PO BEDTIME 04/30/24 05/29/24 trazodone 100 mg tablet 200 mg PO BEDTIME insomnia 04/30/24 05/29/24 cetirizine 10 mg tablet 10 mg PO DAILY 05/17/24 05/29/24 ibuprofen 600 mg tablet 600 mg PO TID PRN arthritis 05/17/24 05/29/24 multivitamin 1 tab PO DAILY 05/17/24 05/29/24 prazosin 1 mg capsule 1 mg PO BEDTIME 05/17/24 05/29/24 psyllium husk 0.4 gram capsule 0.8 g PO BID 05/17/24 05/29/24 (Daily Fiber) zolpidem 10 mg tablet 10 mg PO BEDTIME insomnia 05/17/24 05/29/24 Previous Rx's ?Medication ?Instructions ?Recorded lorazepam 1 mg tablet 1 mg PO TID PRN anxiety/agitation 05/22/24 #0 tabs Allergies Allergy/AdvReac Type Severity Reaction Status Date / Time carbamazepine [From TEGRETOL] AdvReac Mild Nausea and Verified 05/29/24 14:13 Vomiting topiramate [From Topamax] AdvReac Mild Nausea and Verified 05/29/24 14:13 Vomiting Review of Systems 2 Review of Systems: Yes all other systems are reviewed and are negative Constitutional: Constitutional: Reports as per HPI Neurologic: Denies Abnormal speech present PMFSH Past Medical History Attestation statement: The following information was validated with the patient. Source: old records reviewed Medical History Port-A-Cath in place History of electroconvulsive therapy COVID-19 COVID-19 Sprain of left foot Chronic post-traumatic stress disorder (PTSD) COPD (chronic obstructive pulmonary disease) Increased BMI GERD (gastroesophageal reflux disease) Recurrent major depression-severe Acute post-traumatic stress disorder Injury, self-inflicted Suicidal ideation Self-harming behavior Intentional self-harm Suicidal ideation Borderline personality disorder Schizoaffective disorder Adjustment disorder Asthma Depression Anxiety PTSD (post-traumatic stress disorder) Family History Family History Mother Brain cancer Other No family history of cardiac disease Social History Social History Household Members: Unknown / Unable to assess Household Members Other:: [facility] staff and peers Housing: Other Housing Other:: Detention Do you presently have visiting nurse or other home services: No Unable to assess alcohol history related to: Unable to respond Alcohol intake: never Comment: 1:1 sitter Patient Tobacco Use Status: Former Tobacco user Tobacco use type: Cigarette Cigarette Packs Per Day: 0.5 Cigarettes Per Day: 4 Years Smoked: 20 Smoked in Last 30 Days: Yes e-Cigarette/Vaping Use: Never Used Second Hand Smoke Exposure: Yes Use of substances other than those prescribed or required for medical reasons: Yes Substance Use Type: Marijuana Advance Directives: No Advance Directives Information Provided: Yes Do you have a plan to hurt others: No Plan Patient : No service: No Sexual orientation: Straight/Heterosexual Physical Exam 2 Vital Signs: Vital Signs: Last Vital Signs Temp 98.5 F 05/29/24 14:09 Pulse 88 05/29/24 14:09 Resp 15 05/29/24 14:09 BP 98/73 05/29/24 14:09 Pulse Ox 98 05/29/24 14:09 O2 Del Method Room Air 05/29/24 14:09 BMI result Body Mass Index 40.2 Const: Other: No evidence of head trauma General: cooperative and no acute distress Orientation/consciousness: p atient oriented x3 Limitations: no limitations HEENT: Head: Yes normal to inspection and Yes atraumatic Ears: hearing grossly normal bilaterally General nose exam: Normal external nose present Face and sinus: Yes normal facial exam Eyes: General: appearance normal, both eyes and all related structures EOM: EOMs intact bilaterally Neck: Neck: Yes normal visual inspection and Yes no meningeal signs Resp: Effort & Inspection: normal respiratory effort and no respiratory distress Auscultation: clear to auscultation bilaterally Cardio: Rate: regular rate Heart sounds: S1 normal heart sound present and S2 normal heart sound present GI: Inspection: Yes normal to inspection Palpation (GI): Soft to palpation, nontender, no guarding and not rigid Skin: Other: Multiple old superficial linear abrasions noted to bilateral forearms which are well healing without associated erythema/tenderness or warmth. Rashes: no rashes Wounds: no wounds Neuro: General: patient oriented x3, gait normal, tone normal, moves all extremities, no meningeal signs, no focal motor deficits and CN's II-XI intact bilaterally Cranial nerves: Yes CN's II-XII intact bilaterally Cognition (Neuro): normal cognition Speech: No Abnormal speech present Gait exam (Neuro): Normal gait present Extrem: General: Yes normal to inspection Psych: Affect: Sad affect present Attitude: cooperative Thought content: Suicidality present, no homicidality and Depressive thoughts present Course Course Course Narrative: -labs reassuring -1630--ED care transferred to JUANITO Kang pending tox screen and CARE team consult. Physician observation initiated Reevaluation(s) Reevaluation #1: Patient is seen by the care team, she is cleared for discharge. The patient is not actively suicidal in his comfortable with plan for discharge. Time: 19:58 Medications Administered Generic Name Dose Route Start Last Admin Trade Name Freq PRN Reason Stop Dose Admin Clonidine HCl 0.1 mg 05/29/24 16:30 05/29/24 16:42 Clonidine Hcl 0.1 Mg Tablet PO 0.1 mg TID SULEIMAN Administration Protocol Discontinued Medications Generic Name Dose Route Start Last Admin Trade Name Freq PRN Reason Stop Dose Admin Benzocaine 1 lozenge 05/29/24 18:09 05/29/24 18:31 Throat Lozenge, Medicated Lozenge MUCOUS MEM 05/29/24 18:10 Not Given ONCE ONE Duloxetine HCl 60 mg 05/29/24 16:30 05/29/24 16:49 Duloxetine Hcl 60 Mg Capsule.Dr FERRARO Not Given DAILY SULEIMAN Medical Decision Making Medical Decision Making MDM Narrative: 39-year-old female with a past medical history COPD, GERD, recurrent major depressive disorder, PTSD, schizoaffective, adjustment disorder, asthma, anxiety, presenting [facility] complaining of increased depression with suicidal ideations. On exam vital signs stable, NAD, nontoxic appearing, sad/depressed, cooperative. Physical exam as noted above. Concern for increasing depression vs schizoaffective vs borderline personality disorder. Rule out organic causes and substance abuse Plan: Labs, tox screen, CARE team consult Please refer to course for remaining clinical decision making, interpretation of labs/imaging results, and discussions with consultants and/or family members. Differential Diagnosis Differential Diagnoses: The differential diagnosis associated with the presentation includes As above Admission/Observation Consideration of admission/observation: Escalation of care including admission/observation considered Consult Healthcare Provider Management of the patient was discussed with: Behavioral Health Provider Lab Data [facility] Lab Attestation statement: I reviewed the patient's lab results. 05/29/24 14:44 05/29/24 14:44 Labs: Lab Results 05/29/24 05/29/24 Range/Units 14:44 15:37 WBC 6.3 (4.8-10.8) X10*3/uL RBC 3.75 L (4.20-5.50) X10*6/uL Hgb 11.2 L (12.0-16.0) g/dl Hct 34.3 L (37.0-47.0) % MCV 91.5 (80.0-98.0) fL MCH 29.9 (27.0-33.0) pg MCHC 32.7 (31.0-35.0) g/dl RDW 13.2 (11.0-16.0) % Plt Count Not Reportable MPV Not Reportable Immature Gran % (Auto) 0.3 (0.0-0.4) % Neut % (Auto) 68.8 (45-73) % Lymph % (Auto) 23.3 (20-40) % [place] % (Auto) 5.4 (2-11) % Eos % (Auto) 1.7 (0-4) % Baso % (Auto) 0.5 (0-2) % Lymph # (Auto) 1.5 (1.2-4.9) X10*3/uL [place] # (Auto) 0.3 (0.1-1.2) X10*3/uL Eos # (Auto) 0.1 (0.0-0.4) X10*3/uL Baso # (Auto) 0.0 (0.0-0.2) X10*3/uL Abs Immat Gran (auto) 0.02 (0.00-0.03) X10*3/uL Absolute Neuts (auto) 4.3 (2.0-8.3) x10*3/uL Absolute Nucleated RBC 0.000 (0.0-0.012) X10*3/uL Nucleated RBC % (auto) 0.0 (0.0-0.2) /100WBC Smear Tech's Comments VERIFIED Sodium 135 (135-145) mmol/L Potassium 4.0 (3.3-5.1) mmol/L Chloride 108 (96-108) mmol/L Carbon Dioxide 20 L (22-29) mmol/L Anion Gap 11 L (12-20) BUN 7 L (9-16) mg/dL Creatinine 0.80 (0.5-1.4) mg/dL Estim Creat Clear Calc 93.3 Estimated GFR > 60 Random Glucose 95 (60-115) mg/dL Calcium 9.5 (8.4-10.2) mg/dL Total Bilirubin 0.2 (0.0-1.0) mg/dL AST 12 (5-31) U/L ALT 11 (0-31) U/L Alkaline Phosphatase 52 (39-117) U/L Total Protein 6.6 (6.5-8.0) g/dL Albumin 4.0 (3.5-5.0) g/dL Urine Color Yellow Urine Appearance Clear Urine pH 6.0 (5.0-9.0) Ur Specific [place] 1.010 (1.005-1.025) Urine Protein Negative (Neg-Trace) mg/dL Urine Glucose (UA) Negative (Negative) mg/dL Urine Ketones Negative (Negative) mg/dL Urine Blood Large (3+) H (Negative) Urine Nitrite Negative (Negative) Ur Leukocyte Esterase Trace H (Negative) Urine RBC 6-10 H (0-2) /HPF Urine WBC 0-5 (0-5) /HPF Ur Squamous Epith Cells 11-20 (0-2) /HPF Urine Bacteria Trace (None Seen) Hyaline Casts 0-2 (0-2) /LPF Salicylates < 5.0 L (15-30) mg/dL Urine Opiates Screen Not Detected (Not Detect) Ur Buprenorphine Scrn Not Detected (Not Detect) ng/mL Ur Oxycodone Screen Not Detected (Not Detect) ng/mL Urine Methadone Screen Not Detected (Not Detect) ng/mL Urine Fentanyl Screen Not Detected (Not Detect) Acetaminophen < 3 (<30) mcg/mL Ur Barbiturates Screen Not Detected (Not Detect) Ur Phencyclidine Scrn Not Detected (Not Detect) Ur Amphetamines Screen Not Detected (Not Detect) U Benzodiazepines Scrn Not Detected (Not Detect) Urine Cocaine Screen Not Detected (Not Detect) U Marijuana (THC) Screen POSITIVE H (Not Detect) Radiology Impression Discussion of test interpretation with radiology: I have reviewed the radiologist's reading. Independent Historian Clinical information obtained from an independent historian. History obtained from or confirmed by: EMS External Record Review External record reviewed: Inpatient record, Office record, Outpatient record, Prior outpatient labs, Prior outpatient radiology, Primary care record and Outside ED record Tests considered The following testing was considered but not selected: As above Social Determinants Patient?s care significantly limited by Social Determinants of Health including: Inadequate housing, Low income, Alcoholism and drug addiction in family, Problems related to primary support group, Unemployment, Problems related to employment and Other Social Determinant of Health Discharge Plan Discharge Clinical Impression: Suicidal ideation, Self-injurious behavior Patient Disposition: Home, Self-Care Instructions: Suicide Prevention (ED) Additional Instructions: Take all your medications as prescribed. Return to the ER immediately if you are having any thoughts of harming herself or anybody else Prescriptions: No Action clonidine HCl 0.1 mg tablet 0.1 mg PO TID benztropine 0.5 mg tablet 0.5 mg PO BID haloperidol 5 mg tablet 5 mg PO TID PRN (Reason: hallucinations) diphenhydramine HCl [Banophen] 50 mg capsule 100 mg PO BEDTIME haloperidol decanoate 100 mg/mL solution 75 mg IM Q4W prazosin 5 mg capsule 15 mg PO BEDTIME trazodone 100 mg tablet 200 mg PO BEDTIME omeprazole 20 mg capsule,delayed release(DR/EC) 20 mg PO Q OTHER DAY albuterol sulfate [Ventolin HFA] 90 mcg/actuation HFA aerosol inhaler 2 puff INHALATION QID PRN (Reason: wheezing) lithium carbonate 300 mg tablet 300 mg PO BID duloxetine 60 mg capsule,delayed release(DR/EC) 60 mg PO QAM psyllium husk [Daily Fiber] 0.4 gram capsule 0.8 g PO BID ibuprofen 600 mg tablet 600 mg PO TID PRN (Reason: arthritis) zolpidem 10 mg tablet 10 mg PO BEDTIME multivitamin Tablet 1 tab PO DAILY prazosin 1 mg capsule 1 mg PO BEDTIME cetirizine 10 mg tablet 10 mg PO DAILY lorazepam 1 mg Tablet 1 mg PO TID PRN (Reason: anxiety/agitation) Qty: 0 0RF Interventions: [place]-Suicide Risk Severity Scale Last Done: 05/29/24 15:44 Print Language: Italian
[2024-05-29 16:02] LABS: Appearance Urine Clear; Color Urine Yellow; Glucose Urine UA Negative (Negative); Leukocyte Esterase Urine Trace (Negative); Nitrite Urine Negative (Negative); UMIC TRIGGER UACC YES; Urine Blood Large (3+) (Negative); Urine Ketones Negative (Negative); Urine Protein Negative (Neg-Trace)
[2024-05-29 16:07] LABS: Bacteria Urine Trace (None Seen); Hyaline Casts Urine 0-2 /LPF (0-2); WBC Urine 0-5 /HPF (0-5)
[2024-05-29 16:12] LABS: Amphetamine Screen Urine Not Detected (Not Detect); Barbiturates, Urine Not Detected (Not Detect); Benzodiazepines Screen Urine Not Detected (Not Detect); Buprenorphine Scr Not Detected (Not Detect); Cannabinoid Screen Urine POSITIVE (Not Detect); Cocaine Screen Urine Not Detected (Not Detect); Fentanyl, urine Not Detected (Not Detect); Methadone Screen, Urine Not Detected (Not Detect); Opiate Screen Urine Not Detected (Not Detect); Oxycodone Screen Urine Not Detected (Not Detect); Phencyclidine Screen Urine Not Detected (Not Detect)
--- NOTE | 2024-05-29 16:21 | PC.NURSE ---
med rec completed - medication confirmed via pt pharmacy. provider notified/aware.
[2024-05-29] MEDS: cloNIDine HCL 0.1 MG TABLET PO ×2 (16:42→20:01)
--- NOTE | 2024-05-29 16:49 | PC.NURSE ---
pt refused cymbalta administration at this time - states that she takes the medication between 7-8pm. pharmacy called/notified so time can be changed.
[2024-05-29 17:37] LABS: SLIDE REVIEW VERIFIED; White Blood Count 6.3 X10*3/uL (4.8-10.8)
--- NOTE | 2024-05-29 19:19 | PC.NURSE ---
Report from Cecile WOOD. Patient standing by nurses station talking with staff, tearful, stating she just wants to . Patient reported to staff that she did not take the pill that was given to her by the previous RN, patient states she was saving it so that she can overdose on meds. Patient brought staff into her room and gave the pill to staff, the pill was disposed of.
--- NOTE | 2024-05-29 19:31 | PC.NURSE ---
patient currently talking with care team
[2024-05-29 20:01] VITALS: BP 115/85
[2024-05-29] MEDS: Zolpidem Tartrate 5 MG TABLET PO (20:01)
[2024-05-29 20:02] VITALS: BP 115/85
[2024-05-29] MEDS: DULoxetine HCl 60 MG CAPSULE.DR PO (20:02)
[2024-05-29] MEDS: diphenhydrAMINE HCL 25 MG CAPSULE 100 MG PO (20:02)
[2024-05-29] MEDS: Lithium Carbonate 300 MG CAPSULE PO (20:02)
[2024-05-29] MEDS: traZODone HCL 100 MG TABLET 200 MG PO (20:02)
[2024-05-29] MEDS: Prazosin HCL 5 MG CAPSULE 15 MG PO (20:02)
[2024-05-29] MEDS: Benztropine Mesylate 0.5 MG TABLET PO (20:02)
[2024-05-29 20:03] VITALS: BP 115/85
[2024-05-29] MEDS: Prazosin HCL 1 MG CAPSULE PO (20:03)
[2024-05-29 20:09] VITALS: BP 115/85; PULSE 85; RESP 20; TEMP 36.8; O2SAT 97
[2024-05-29 20:15] VITALS: BP 115/85; PULSE 85; RESP 20; TEMP 36.8; O2SAT 97
== END 2024-05-29 20:17 | disposition home or self-care (01) ==
PROVIDERS: Emergency Provider Emergency Medicine; PCP Nurse Practitioner Family
DX: F33.1 Major depressive disorder, recurrent, moderate (principal); R45.851 Suicidal ideations; F25.9 Schizoaffective disorder, unspecified; Z87.891 Personal history of nicotine dependence; Z79.899 Other long term (current) drug therapy; Z51.81 Encounter for therapeutic drug level monitoring
CPT/HCPCS: 36415; 80053; 80143; 80179; 80307; 81001; 85025; 99285; S9485

== ENCOUNTER 2024-06-03 19:26 | Emergency (ER) | payer OTHER, SELFPAY ==
[2024-06-03 19:26] VITALS: BP 96/70; PULSE 108; RESP 19; TEMP 37; O2SAT 99
[2024-06-03 19:44] VITALS: BP 124/91; BP 96/70; PULSE 102; PULSE 108; RESP 19; TEMP 37; O2SAT 100; O2SAT 99; BMI 58.4
[2024-06-03 20:47] LABS: Appearance Urine Clear; Color Urine Yellow; Glucose Urine UA Negative (Negative); Leukocyte Esterase Urine Negative (Negative); Nitrite Urine Negative (Negative); Specific Gravity - Urine <= 1.005 (1.005-1.025); Urine Blood Negative (Negative); Urine Ketones Negative (Negative); Urine Protein Negative (Neg-Trace)
[2024-06-03 20:48] LABS: UPreg QC Valid YES; Urine Pregnancy NEGATIVE (NEGATIVE)
[2024-06-03 20:53] LABS: Amphetamine Screen Urine Not Detected (Not Detect); Barbiturates, Urine Not Detected (Not Detect); Benzodiazepines Screen Urine Not Detected (Not Detect); Buprenorphine Scr Not Detected (Not Detect); Cannabinoid Screen Urine POSITIVE (Not Detect); Cocaine Screen Urine Not Detected (Not Detect); Fentanyl, urine Not Detected (Not Detect); Methadone Screen, Urine Not Detected (Not Detect); Opiate Screen Urine Not Detected (Not Detect); Oxycodone Screen Urine Not Detected (Not Detect); Phencyclidine Screen Urine Not Detected (Not Detect)
[2024-06-03 20:53] LABS: MANUAL DIFF FLAG NO
[2024-06-03 20:58] LABS: Basophils Percent Auto 0.4 % (0-2); Eosinophils Absolute Auto 0.1 X10*3/uL (0.0-0.4); Eosinophils Percent Auto 0.8 % (0-4); Hematocrit 37.5 % (37.0-47.0); Hemoglobin 12.1 g/dl (12.0-16.0); Imm Gran Abs Auto 0.02 X10*3/uL (0.00-0.03); Imm Gran Pct Auto 0.3 % (0.0-0.4); Lymphocytes Absolute Auto 1.3 X10*3/uL (1.2-4.9); Lymphocytes Percent Auto 16.1 % (20-40); Mean Corpuscular HGB Conc 32.3 g/dl (31.0-35.0); Mean Corpuscular Hemoglobin 29.7 pg (27.0-33.0); Mean Corpuscular Volume 91.9 fL (80.0-98.0); Mean Platelet Volume 11.4 fL (9.4-12.3); Monocytes Absolute Auto 0.4 X10*3/uL (0.1-1.2); Monocytes Percent Auto 4.5 % (2-11); Neutrophils Absolute Auto 6.2 x10*3/uL (2.0-8.3); Neutrophils Percent Auto 77.9 % (45-73); Platelet Count 256 X10*3/uL (160-400); Red Blood Count 4.08 X10*6/uL (4.20-5.50); Red Cell Distribution Width 13.2 % (11.0-16.0); White Blood Count 7.9 X10*3/uL (4.8-10.8)
[2024-06-03 21:16] LABS: Alanine Aminotransferase 10 U/L (0-31); Albumin Level 4.2 g/dL (3.5-5.0); Alkaline Phosphatase 55 U/L (39-117); Anion Gap 12 (12-20); Aspartate Amino Transferase 11 U/L (5-31); Bilirubin Total 0.3 mg/dL (0.0-1.0); Blood Urea Nitrogen 4 mg/dL (9-16); Calcium 9.5 mg/dL (8.4-10.2); Carbon Dioxide 24 mmol/L (22-29); Chloride 105 mmol/L (96-108); Creatinine Clr Calc Pharmacy 180.5; Estimated Glomerular Filt Rate > 60; Ethanol < 10 mg/dL; Glucose Random 90 mg/dL (60-115); Potassium 3.7 mmol/L (3.3-5.1); Sodium 137 mmol/L (135-145)
--- NOTE | 2024-06-03 21:42 | PC.NURSE ---
PT brought in by EMS from home. Pt reports si with a plan to cut wrist for the past several of weeks. med complaint. Anniversary of sisters murder is approaching (June 18). Pt endorsing Auditory hallucinations telling her to end her lifes. Denies HI. PT reports she hasnt cut in 1 week but has been looking for glass to end her life. PT changed over skin assessment complete, belongings secured by security. PT headbanging once brought to room. Care team reports no care plan at this time. Discussed safety concerns with Denisse EDGE. 1:[address] at this time for safety. Awaiting to be seen by ED provider.
--- NOTE | 2024-06-04 00:11 | ED.PSYCH ---
HPI - Psych General Chief Complaint: Psychiatric Symptoms Stated Complaint: senior living, needs to talk to crisis Time Seen by Provider: 06/03/24 21:38 Source: patient and EMS Mode of arrival: EMS Limitations: no limitations History of Present Illness ED Provider: Dr. Rosi Barcenas HPI Narrative: Patient comes to the emergency room via ambulance complaining of suicidal ideation. Patient states that she would like to cut her wrists. Patient states that it is the anniversary of her sister's and feels depressed. Patient denies hurting herself prior to arrival. Related Data Home Medications ?Medication ?Instructions ?Recorded ?Confirmed albuterol sulfate 90 mcg/actuation 2 puff inhalation QID PRN wheezing 04/30/24 06/03/24 aerosol inhaler (Ventolin HFA) benztropine 0.5 mg tablet 0.5 mg PO BID 04/30/24 06/03/24 clonidine HCl 0.1 mg tablet 0.1 mg PO TID 04/30/24 06/03/24 diphenhydramine HCl 50 mg capsule 100 mg PO BEDTIME insomnia 04/30/24 06/03/24 (Banophen) duloxetine 60 mg capsule,delayed 60 mg PO QAM 04/30/24 06/03/24 release haloperidol 5 mg tablet 5 mg PO TID PRN hallucinations 04/30/24 06/03/24 haloperidol decanoate 100 mg/mL 75 mg IM Q4W 04/30/24 05/29/24 intramuscular solution lithium carbonate 300 mg tablet 300 mg PO BID 04/30/24 06/03/24 omeprazole 20 mg capsule,delayed 20 mg PO Q OTHER DAY 04/30/24 06/03/24 release prazosin 5 mg capsule 15 mg PO BEDTIME 04/30/24 06/03/24 trazodone 100 mg tablet 200 mg PO BEDTIME insomnia 04/30/24 06/03/24 cetirizine 10 mg tablet 10 mg PO DAILY 05/17/24 06/03/24 ibuprofen 600 mg tablet 600 mg PO TID PRN arthritis 05/17/24 06/03/24 multivitamin 1 tab PO DAILY 05/17/24 06/03/24 prazosin 1 mg capsule 1 mg PO BEDTIME 05/17/24 05/29/24 psyllium husk 0.4 gram capsule 0.8 g PO BID 05/17/24 06/03/24 (Daily Fiber) zolpidem 10 mg tablet 10 mg PO BEDTIME insomnia 05/17/24 06/03/24 Previous Rx's ?Medication ?Instructions ?Recorded lorazepam 1 mg tablet 1 mg PO TID PRN anxiety/agitation 05/22/24 #0 tabs Allergies Allergy/AdvReac Type Severity Reaction Status Date / Time carbamazepine [From TEGRETOL] AdvReac Mild Nausea and Verified 06/03/24 19:53 Vomiting topiramate [From Topamax] AdvReac Mild Nausea and Verified 06/03/24 19:53 Vomiting Review of Systems Review of Systems: Constitutional : No Weight loss, No Fever, No Chills, No Night Sweats, No Fatigue, No Malaise ENT/Mouth : No Hearing loss, No Ear Pain, No Nasal Congestion, No Sinus Pain, No Hoarseness, No sore throat, No Rhinorrhea, No Swallowing Difficulty Eyes: No Eye Pain, No Swelling, No Redness, No Foreign Body, No Discharge, No Vision Changes Cardiovascular : No Chest Pain, No SOB, No Dyspnea on Exertion, No Orthopnea, No Edema, No Palpitations Respiratory : No Cough, No Sputum, No Wheezing, No Smoke Exposure, No Dyspnea Gastrointestinal : No Nausea, No Vomiting, No Diarrhea, No Constipation, No abdominal Pain, No Hematochezia, No Melena Genitourinary : no irregular bleeding, No Dysuria, No Urinary Frequency, No Hematuria, No Urinary Incontinence, No Urgency, No Flank Pain, No Urinary Flow Changes, No Hesitancy Musculoskeletal : No joint pain, No Myalgias, No Joint Swelling Skin : No Skin Lesions, No rash Neuro : No Weakness, No Numbness, No Paresthesias, No Loss of Consciousness, No Dizziness, No Headache Psych : Complaining of anxiety, depression, suicidal ideation with plan of cutting her wrists Heme/Lymph: No Bruising, No Bleeding,No Lymphadenopathy Endocrine : No Polyuria, No Polydipsia, No Temperature Intolerance PMFSH Past Medical History Medical History Port-A-Cath in place History of electroconvulsive therapy COVID-19 COVID-19 Sprain of left foot Chronic post-traumatic stress disorder (PTSD) COPD (chronic obstructive pulmonary disease) Increased BMI GERD (gastroesophageal reflux disease) Recurrent major depression-severe Acute post-traumatic stress disorder Injury, self-inflicted Suicidal ideation Self-harming behavior Intentional self-harm Suicidal ideation Borderline personality disorder Schizoaffective disorder Adjustment disorder Asthma Depression Anxiety PTSD (post-traumatic stress disorder) Family History Family History Mother Brain cancer Other No family history of cardiac disease Social History Social History Household Members: Unknown / Unable to assess Household Members Other:: senior living staff and peers Housing: Other Housing Other:: Half-Way Do you presently have visiting nurse or other home services: No Unable to assess alcohol history related to: Unable to respond Alcohol intake: never Comment: 1:1 sitter Patient Tobacco Use Status: Former Tobacco user Tobacco use type: Cigarette Cigarette Packs Per Day: 0.5 Cigarettes Per Day: 4 Years Smoked: 20 Smoked in Last 30 Days: Yes e-Cigarette/Vaping Use: Never Used Second Hand Smoke Exposure: Yes Use of substances other than those prescribed or required for medical reasons: Yes Substance Use Type: Marijuana Advance Directives: No Do you have a plan to hurt others: No Plan service: No Sexual orientation: Straight/Heterosexual Physical Exam Vital Signs: Vital Signs: Last Vital Signs Temp 98.6 F 06/03/24 19:44 Pulse 108 H 06/03/24 19:44 Resp 19 06/03/24 19:44 Pulse Ox 99 06/03/24 19:44 O2 Del Method Room Air 06/03/24 19:44 BMI result Body Mass Index 58.4 Const: Other: Appearance: Alert. Oriented X3. No acute distress. Eyes: Pupils equal, round and reactive to light. ENT: Pharynx normal. Neck: Normal inspection. Neck supple. No lymph nodes noted. No crepitus CVS: Normal heart rate and rhythm. Pulses normal. Normal S1 and S2 Respiratory: No respiratory distress. Breath sounds normal. No Wheezing. No rales Abdomen: Soft and nontender. No rigidity. No distention. Skin: Skin warm and dry. Normal skin color. Normal skin turgor. Extremities: No lower extremity edema. No Lacerations. No Rash Neuro: Oriented X 3. No motor deficit. No sensory deficit. Moving all extremities. No slurred speech. CN 2 through 12 grossly intact Psych: calm, cooperative, normal affect Medical Decision Making Medical Decision Making [facility] Narrative: My interpretation of labs: Patient's hematology and chemistry at baseline, urine negative for UTI, positive for marijuana, ETOH negative -care team consult pending -physician observation started at midnight -sign-out given to my colleague Dr. Norris Differential Diagnosis Differential Diagnoses: The differential diagnosis associated with the presentation includes (Anxiety, depression, polysubstance abuse, suicidal ideation) Admission/Observation Consideration of admission/observation: Escalation of care including admission/observation considered (Patient is under physician observation waiting to be seen by the care team) Lab Data [facility] Lab Attestation statement: I reviewed the patient's lab results. 06/03/24 20:43 06/03/24 20:43 Labs: Lab Results 06/03/24 06/03/24 Range/Units 20:36 20:43 WBC 7.9 (4.8-10.8) X10*3/uL RBC 4.08 L (4.20-5.50) X10*6/uL Hgb 12.1 (12.0-16.0) g/dl Hct 37.5 (37.0-47.0) % MCV 91.9 (80.0-98.0) fL MCH 29.7 (27.0-33.0) pg MCHC 32.3 (31.0-35.0) g/dl RDW 13.2 (11.0-16.0) % Plt Count 256 (160-400) X10*3/uL MPV 11.4 (9.4-12.3) fL Immature Gran % (Auto) 0.3 (0.0-0.4) % Neut % (Auto) 77.9 H (45-73) % Lymph % (Auto) 16.1 L (20-40) % Dyer % (Auto) 4.5 (2-11) % Eos % (Auto) 0.8 (0-4) % Baso % (Auto) 0.4 (0-2) % Lymph # (Auto) 1.3 (1.2-4.9) X10*3/uL Dyer # (Auto) 0.4 (0.1-1.2) X10*3/uL Eos # (Auto) 0.1 (0.0-0.4) X10*3/uL Baso # (Auto) 0.0 (0.0-0.2) X10*3/uL Abs Immat Gran (auto) 0.02 (0.00-0.03) X10*3/uL Absolute Neuts (auto) 6.2 (2.0-8.3) x10*3/uL Absolute Nucleated RBC 0.000 (0.0-0.012) X10*3/uL Nucleated RBC % (auto) 0.0 (0.0-0.2) /100WBC Sodium 137 (135-145) mmol/L Potassium 3.7 (3.3-5.1) mmol/L Chloride 105 (96-108) mmol/L Carbon Dioxide 24 (22-29) mmol/L Anion Gap 12 (12-20) BUN 4 L (9-16) mg/dL Creatinine 0.79 (0.5-1.4) mg/dL Estim Creat Clear Calc 180.5 Estimated GFR > 60 Random Glucose 90 (60-115) mg/dL Calcium 9.5 (8.4-10.2) mg/dL Total Bilirubin 0.3 (0.0-1.0) mg/dL AST 11 (5-31) U/L ALT 10 (0-31) U/L Alkaline Phosphatase 55 (39-117) U/L Total Protein 7.0 (6.5-8.0) g/dL Albumin 4.2 (3.5-5.0) g/dL Urine Color Yellow Urine Appearance Clear Urine pH 7.0 (5.0-9.0) Ur Specific [place] <= 1.005 (1.005-1.025) Urine Protein Negative (Neg-Trace) mg/dL Urine Glucose (UA) Negative (Negative) mg/dL Urine Ketones Negative (Negative) mg/dL Urine Blood Negative (Negative) Urine Nitrite Negative (Negative) Ur Leukocyte Esterase Negative (Negative) Urine Test NEGATIVE (NEGATIVE) Urine Opiates Screen Not Detected (Not Detect) Ur Buprenorphine Scrn Not Detected (Not Detect) ng/mL Ur Oxycodone Screen Not Detected (Not Detect) ng/mL Urine Methadone Screen Not Detected (Not Detect) ng/mL Urine Fentanyl Screen Not Detected (Not Detect) Ur Barbiturates Screen Not Detected (Not Detect) Ur Phencyclidine Scrn Not Detected (Not Detect) Ur Amphetamines Screen Not Detected (Not Detect) U Benzodiazepines Scrn Not Detected (Not Detect) Urine Cocaine Screen Not Detected (Not Detect) U Marijuana (THC) Screen POSITIVE H (Not Detect) Ethyl Alcohol < 10 mg/dL Critical Care Time Critical Care Time Critical Care Time: Yes Total Critical Care Time: 30 Attestation: I have personally provided critical care time. Time includes review of lab data, radiology results, discussion with consultants, and monitoring for potential decompensation. Intervention performed as documented. Discharge Plan Discharge Clinical Impression: Suicide ideation, Borderline personality disorder Patient Disposition: Still a Patient Prescriptions: No Action clonidine HCl 0.1 mg tablet 0.1 mg PO TID benztropine 0.5 mg tablet 0.5 mg PO BID haloperidol 5 mg tablet 5 mg PO TID PRN (Reason: hallucinations) diphenhydramine HCl [Banophen] 50 mg capsule 100 mg PO BEDTIME haloperidol decanoate 100 mg/mL solution 75 mg IM Q4W prazosin 5 mg capsule 15 mg PO BEDTIME trazodone 100 mg tablet 200 mg PO BEDTIME omeprazole 20 mg capsule,delayed release(DR/EC) 20 mg PO Q OTHER DAY albuterol sulfate [Ventolin HFA] 90 mcg/actuation HFA aerosol inhaler 2 puff INHALATION QID PRN (Reason: wheezing) lithium carbonate 300 mg tablet 300 mg PO BID duloxetine 60 mg capsule,delayed release(DR/EC) 60 mg PO QAM psyllium husk [Daily Fiber] 0.4 gram capsule 0.8 g PO BID ibuprofen 600 mg tablet 600 mg PO TID PRN (Reason: arthritis) zolpidem 10 mg tablet 10 mg PO BEDTIME multivitamin Tablet 1 tab PO DAILY prazosin 1 mg capsule 1 mg PO BEDTIME cetirizine 10 mg tablet 10 mg PO DAILY lorazepam 1 mg Tablet 1 mg PO TID PRN (Reason: anxiety/agitation) Qty: 0 0RF Interventions: [place]-Suicide Risk Severity Scale Last Done: 06/03/24 21:38 Print Language: Swedish
[2024-06-04] MEDS: Lithium Carbonate 300 MG CAPSULE PO (08:37)
[2024-06-04] MEDS: Benztropine Mesylate 0.5 MG TABLET PO (08:37)
[2024-06-04] MEDS: Loratadine 10 MG TABLET PO (08:38)
[2024-06-04] MEDS: cloNIDine HCL 0.1 MG TABLET PO (08:38)
[2024-06-04] MEDS: DULoxetine HCl 60 MG CAPSULE.DR PO (08:38)
[2024-06-04] MEDS: Omeprazole 20 MG CAPSULE.DR PO (08:38)
[2024-06-04] MEDS: Multivitamin TABLET 1 TAB PO (08:38)
--- NOTE | 2024-06-04 08:50 | MHC.CARE ---
Pt does not meet the criteria for IPLOC at this time. Pt will return home to current providers. Provider in agreement.
[2024-06-04 09:05] VITALS: BP 142/86; PULSE 64; RESP 18; TEMP 36.4; O2SAT 97
== END 2024-06-04 09:06 | disposition home or self-care (01) ==
PROVIDERS: Emergency Provider Emergency Medicine; PCP Nurse Practitioner Family
DX: R45.851 Suicidal ideations (principal); F60.3 Borderline personality disorder; F43.20 Adjustment disorder, unspecified; Z79.899 Other long term (current) drug therapy; F41.9 Anxiety disorder, unspecified; F25.1 Schizoaffective disorder, depressive type; F43.12 Post-traumatic stress disorder, chronic; J44.9 Chronic obstructive pulmonary disease, unspecified; Z91.52 Personal history of nonsuicidal self-harm
CPT/HCPCS: 36415; 80053; 80307; 81003; 81025; 85025; 99285; S9485

== ENCOUNTER 2024-06-09 06:04 | Day surgery (SDC) | payer OTHER, SELFPAY ==
[2024-06-09] VITALS (7 sets, daily range): BP systolic 125–150; BP diastolic 68–93; PULSE 77–98; RESP 16–20; TEMP 36.2–36.6; O2SAT 96–100; BMI 42.4
[2024-06-09] MEDS: Lactated Ringers 1,000 ML 100 ML IVCONT (07:03)
--- NOTE | 2024-06-09 07:06 | MHC.SHP ---
Pre-Procedural Eval Section A - 24 Hr Update-Section A only Date of Service: 06/09/24 Section B - Complete if H&P > 30 days Chief Complaint: Major depressive disorder, recurrent, severe with Details of Present Illness: doing well no self harm maint ect helpful Relevant Family History (Specify if Yes): No Relevant Social History: None Present Medications: see Short Stay Collaborative assessment Medical History: Significant History (ect) Allergies: Allergies Allergy/AdvReac Type Severity Reaction Status Date / Time carbamazepine [From TEGRETOL] AdvReac Mild Nausea and Verified 06/03/24 19:53 Vomiting topiramate [From Topamax] AdvReac Mild Nausea and Verified 06/03/24 19:53 Vomiting Review of Systems Sugical H&P ROS: Negative: Cardiovascular and Yes, Specify: Respiratory (occ sob nebulizer), Psychiatric (more stable) and Musculoskeletal (knee pain) Exam Surgical H&P Exam: Normal: Heart (rr), Normal: Lungs (clear) and Normal: Neurological Plan Diagnosis/Plan: Unchanged I have reviewed the history and physical and performed a pertinent physical examination on my patient. No changes have occurred unless specified. Time Spent With Patient Time: Total time managing care of this patient today _30___ minutes.
--- NOTE | 2024-06-09 07:29 | HO.ECTPROC ---
ECT Procedure Note Diagnosis/Treatment Date of Service: 06/09/24 Diagnosis: Major Depressive Disorder and Other (ptsd) Previous ECT Date: 05/22/24 Treatment: Series Interval Clinical Notes: Pt doing well ECT done as usual, no complications, woke up well. She had a 17s seizure that the EEG didn't record it.Change back to 0.5 program next tx Time: Total time managing care of this patient today ____ minutes. ECT Settings Device: THYMATRON DGx Electrode Placement: Bitemporal Program/Pulse Width: 0.25 Energy Percent: 100 Seizure Duration By EEG (in seconds): 17 Medications Administration General Anesthetic: Etomidate (14) Muscle Relaxant: Succinylcholine (100) Airway Management Airway Management: Bag Mask Ventilation Treatment Recommendations Program/Pulse Width: 0.50 Notes: no cognitive impairment delerium noted Pt Tolerated Procedure w/o Issue: Yes
[2024-06-09] MEDS: Heparin Sodium,Porcine Flush 500 UNIT/5 ML SYRINGE IVFLUSH (08:21)
== END 2024-06-09 09:38 | disposition home or self-care (01) ==
PROVIDERS: PCP Nurse Practitioner Family; Visit Provider Psychiatry & Neurology Psychiatry
PROC: (CPT 90870; principal; 2024-06-09 07:00)
DX: F33.2 Major depressive disorder, recurrent severe without psychotic features (principal); F43.10 Post-traumatic stress disorder, unspecified; F60.3 Borderline personality disorder; J44.9 Chronic obstructive pulmonary disease, unspecified; K21.9 Gastro-esophageal reflux disease without esophagitis; Z79.51 Long term (current) use of inhaled steroids; Z79.899 Other long term (current) drug therapy; Z88.8 Allergy status to other drugs, medicaments and biological substances; Z87.891 Personal history of nicotine dependence
CPT/HCPCS: 90870; J0330; J1642; J2405

== ENCOUNTER → 2024-06-09 06:04 | Outpatient (BNV) | payer OTHER, SELFPAY | PROVIDERS: PCP Nurse Practitioner Family; Visit Provider Psychiatry & Neurology Psychiatry | DX: F33.2 Major depressive disorder, recurrent severe without psychotic features (principal) | CPT/HCPCS: 90870 ==

== ENCOUNTER 2024-06-12 10:07 | Outpatient (REF) | payer OTHER, SELFPAY | END 2024-06-12 10:08 | disposition home or self-care (01) | LOC: HO.HOSX 10:07 | PROVIDERS: Visit Provider Physician Assistant | DX: Z13.89 Encounter for screening for other disorder (principal) ==

== ENCOUNTER 2024-06-13 13:40 | Outpatient (AMB) | payer MEDICAID, SELFPAY ==
--- NOTE | 2024-06-13 13:56 | A.OFFVIS_ITS ---
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 Patient reports a long history of sports injuries to her right knee. She states for the past 3-4 months her right knee has been giving out making it difficult to move around and climb stairs. She is taking Tylenol and Ibuprofen PRN without relief. She has not tried PT, braces, or injections since the pain started. 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 She has a long history of sports injuries to her right knee. While in the office today, the patient reports difficulty ambulation and climbing the stairs due to her right knee, which has been giving out for the past 3-4 months. She has tried Tylenol and ibuprofen PRN without any benefits. She has not tried physical therapy, braces, or injections in the past. [facility] Medical History Port-A-Cath in place History of electroconvulsive therapy COVID-19 COVID-19 Sprain of left foot Chronic post-traumatic stress disorder (PTSD) COPD (chronic obstructive pulmonary disease) Increased BMI GERD (gastroesophageal reflux disease) Recurrent major depression-severe Acute post-traumatic stress disorder Injury, self-inflicted Suicidal ideation Self-harming behavior Intentional self-harm Suicidal ideation Borderline personality disorder Schizoaffective disorder Adjustment disorder Asthma Depression Anxiety PTSD (post-traumatic stress disorder) Family History Mother Brain cancer Other No family history of cardiac disease Social History (Updated 06/13/24 @ 14:07 by SKYE Gilbert) Household Members: Unknown / Unable to assess Household Members Other:: correction staff and peers Housing: Other Housing Other:: Custodial Do you presently have visiting nurse or other home services: No Unable to assess alcohol history related to: Unable to respond Alcohol intake: never Comment: 1:1 sitter Patient Tobacco Use Status: Former Tobacco user Tobacco use type: Cigarette Cigarette Packs Per Day: 0.5 Cigarettes Per Day: 4 Years Smoked: 20 e-Cigarette/Vaping Use: Never Used Second Hand Smoke Exposure: Yes Substance Use Type: Marijuana service: No Current occupation: rt handed Sexual orientation: Straight/Heterosexual Review of Systems Const All systems reviewed & are unremarkable except as noted in HPI and below Physical Exam Vital Signs: BMI result Body Mass Index 30.4 Const General: cooperative and no acute distress Orientation/consciousness: patient oriented x3 Resp Effort & Inspection: normal respiratory effort and able to speak in complete sentences Cardio Peripheral pulses: Peripheral pulses 2+ throughout Skin General skin exam: no rashes or lesions noted Neuro General: patient oriented x3 Extrem Other: Left knee: Normal to inspection. No ecchymosis, erythema, or joint effusion. Tenderness to palpation along the medial joint lines. Full knee extension and flexion. Crepitus is felt with ROM. NVI. Assessment & Plan Assessment & Plan (1) Osteoarthritis of right knee: Code(s): M17.11 - Unilateral primary osteoarthritis, right knee Category: Medical Plan Ms. Capps is a 39-year-old female who presents in the office today, as a new patient, for an evaluation of right knee pain. She has a long history of sports injuries to her right knee. While in the office today, the patient reports difficulty ambulating and climbing the stairs due to her right knee, which has been giving out for the past 3-4 months. She has tried Tylenol and ibuprofen PRN without any benefits. She has not tried physical therapy, braces, or injections in the past. We discussed the role of cortisone injection and physical therapy; however, the patient deferred cortisone injection and elected physical therapy at this time. Therefore, I have placed a referral to physical therapy. Follow-up will be PRN, or sooner if needed. X-rays of the left knee, which were obtained while in the office today and were reviewed by me, Macrie Dumont PA-C, revealed: osteoarthritis of the left knee. Orders: Orders XR knee LT 3V 06/13/24 M25.569 - Pain in unspecified knee XR knee RT 3V 06/13/24 M25.569 - Pain in unspecified knee XR knee LT 1V 06/13/24 M25.569 - Pain in unspecified knee PT Evaluation and Treatment 06/13/24 M17.11 - Unilateral primary osteoarthritis, right knee Patient Instructions: Scribed by Allison Jefferson, medical accounts receivable specialist, for Marcie Dumont PA-C on 06/13/24 at 2:20 pm EST. Coding Level of Care Code New Pt Level 4 (78047) Diagnoses Osteoarthritis of right knee M17.11
[2024-06-13 14:01] VITALS: BMI 30.4
== END 2024-06-13 14:30 | disposition home or self-care (01) ==
LOC: HO.HOS 13:41
PROVIDERS: PCP Nurse Practitioner Family; Visit Provider Physician Assistant
DX: M17.11 Unilateral primary osteoarthritis, right knee (principal)
CPT/HCPCS: 99214

== ENCOUNTER 2024-06-13 13:48 | Outpatient (REF) | payer OTHER, SELFPAY ==
--- NOTE | ~2024-06-13 | XR_ITS ---
EXAMINATION: CR Xr Knee Lt 1v XR KNEE RIGHT 3 VIEWS CLINICAL INFORMATION: Pain in unspecified knee M25.569. COMPARISON: XR Right knee 09/16/2023 TECHNIQUE: AP view the left knee. AP, lateral and sunrise views of the right knee, 3 images. FINDINGS: Left knee: No evidence of acute fracture. Alignment is anatomic. Mild medial compartment arthrosis with osteophytosis. No significant soft tissue swelling. Right knee: Mild tricompartment arthrosis with osteophytosis. Amorphous calcifications overlie the suprapatellar joint space. No joint effusion. Rounded calcifications overlie the posterior joint space which could represent loose osseous bodies versus arterial calcifications. No evidence of acute fracture. Alignment is anatomic. No significant soft tissue swelling. XR/XR knee RT 3V IMPRESSION: 1. No evidence of acute fracture or dislocation. 2. Mild bilateral knee arthrosis. 3. Amorphous calcifications overlie the suprapatellar joint space of the right knee which could represent synovial calcifications, nonspecific. If clinically warranted, knee MRI is recommended for further assessment. Electronically signed by: Funmilayo Terrazas DO 07/28/2024 09:55 AM EST
--- NOTE | ~2024-06-13 | XR_ITS ---
EXAMINATION: CR Xr Knee Lt 1v XR KNEE RIGHT 3 VIEWS CLINICAL INFORMATION: Pain in unspecified knee M25.569. COMPARISON: XR Right knee 09/16/2023 TECHNIQUE: AP view the left knee. AP, lateral and sunrise views of the right knee, 3 images. FINDINGS: Left knee: No evidence of acute fracture. Alignment is anatomic. Mild medial compartment arthrosis with osteophytosis. No significant soft tissue swelling. Right knee: Mild tricompartment arthrosis with osteophytosis. Amorphous calcifications overlie the suprapatellar joint space. No joint effusion. Rounded calcifications overlie the posterior joint space which could represent loose osseous bodies versus arterial calcifications. No evidence of acute fracture. Alignment is anatomic. No significant soft tissue swelling. XR/XR knee LT 1V IMPRESSION: 1. No evidence of acute fracture or dislocation. 2. Mild bilateral knee arthrosis. 3. Amorphous calcifications overlie the suprapatellar joint space of the right knee which could represent synovial calcifications, nonspecific. If clinically warranted, knee MRI is recommended for further assessment. Electronically signed by: Funmilayo Terrazas DO 07/28/2024 09:55 AM EST
== END 2024-06-13 13:49 | disposition home or self-care (01) ==
LOC: HO.HOSX 13:48
PROVIDERS: Visit Provider Physician Assistant
DX: M25.561 Pain in right knee (principal); M25.562 Pain in left knee; M17.11 Unilateral primary osteoarthritis, right knee
CPT/HCPCS: 73560; 73562; 99212

== ENCOUNTER 2024-06-23 14:49 | Emergency (ER) | payer OTHER, SELFPAY ==
--- NOTE | 2024-06-23 15:09 | ED.PSYCH ---
HPI - Psych General Stated Complaint: THOUGHTS OF SELF-HARM,-SELFHARM,-HI,C&C PER EMS Source: patient and EMS Mode of arrival: EMS Limitations: no limitations History of Present Illness ED Provider: GABRIEL HPI Narrative: 39 yo female with PMH of PTSD, schizoaffective disorder, asthma, adjustment disorder, GERD here with c/o SI and feeling like she is going to hurt herself. She states she just isn't doing well at the alf. Also reports recent L thigh abscess and has been on abx unsure of name - doxy Rx in pharmacy as of 06/07. She is asking for IM medications for improvement in her symptoms on arrival. She denies self inflicted trauma or overdose right now. MD complaint: suicidal ideation and feels depressed Onset (ago): day(s) Duration: getting worse History of same: Yes Relieving factors: none Exacerbating factors: other Context: significant life stressor Associated psychiatric symptoms: depression and suicidal ideation Associated symptoms: denies other symptoms Treatments prior to arrival: none If self harm: admits thoughts of self harm and has plan Related Data Home Medications ?Medication ?Instructions ?Recorded ?Confirmed albuterol sulfate 90 mcg/actuation 2 puff inhalation QID PRN wheezing 04/30/24 06/03/24 aerosol inhaler (Ventolin HFA) benztropine 0.5 mg tablet 0.5 mg PO BID 04/30/24 06/03/24 clonidine HCl 0.1 mg tablet 0.1 mg PO TID 04/30/24 06/03/24 diphenhydramine HCl 50 mg capsule 100 mg PO BEDTIME insomnia 04/30/24 06/03/24 (Banophen) duloxetine 60 mg capsule,delayed 60 mg PO QAM 04/30/24 06/03/24 release haloperidol 5 mg tablet 5 mg PO TID PRN hallucinations 04/30/24 06/03/24 haloperidol decanoate 100 mg/mL 75 mg IM Q4W 04/30/24 05/29/24 intramuscular solution lithium carbonate 300 mg tablet 300 mg PO BID 04/30/24 06/03/24 omeprazole 20 mg capsule,delayed 20 mg PO Q OTHER DAY 04/30/24 06/03/24 release prazosin 5 mg capsule 15 mg PO BEDTIME 04/30/24 06/03/24 trazodone 100 mg tablet 200 mg PO BEDTIME insomnia 04/30/24 06/03/24 cetirizine 10 mg tablet 10 mg PO DAILY 05/17/24 06/03/24 ibuprofen 600 mg tablet 600 mg PO TID PRN arthritis 05/17/24 06/03/24 multivitamin 1 tab PO DAILY 05/17/24 06/03/24 prazosin 1 mg capsule 1 mg PO BEDTIME 05/17/24 05/29/24 psyllium husk 0.4 gram capsule 0.8 g PO BID 05/17/24 06/03/24 (Daily Fiber) zolpidem 10 mg tablet 10 mg PO BEDTIME insomnia 05/17/24 06/03/24 Previous Rx's ?Medication ?Instructions ?Recorded lorazepam 1 mg tablet 1 mg PO TID PRN anxiety/agitation 05/22/24 #0 tabs Allergies Allergy/AdvReac Type Severity Reaction Status Date / Time carbamazepine [From TEGRETOL] AdvReac Mild Nausea and Verified 06/13/24 13:56 Vomiting topiramate [From Topamax] AdvReac Mild Nausea and Verified 06/13/24 13:56 Vomiting Review of Systems Review of Systems: Constitutional : No Fever, No Chills ENT/Mouth : No Ear Pain, No Nasal Congestion, No sore throat Eyes: No Eye Pain, No Swelling, No Redness Cardiovascular : No Chest Pain, No SOB Respiratory : No Cough, No Sputum, No Dyspnea Gastrointestinal : No Nausea, No Vomiting, No Diarrhea, No Hematochezia, No Melena Genitourinary : No Dysuria, No Urinary Frequency, No Hematuria Musculoskeletal : No Myalgias Skin : No Skin Lesions, No rash Neuro : No Weakness, No Numbness, No Paresthesias, No Dizziness, No Headache Psych : positive Anxiety, positive Depression, positive SI no HI All other systems reviewed and are negative PMFSH Past Medical History Attestation statement: The following information was validated with the patient. Source: old records reviewed Medical History Port-A-Cath in place History of electroconvulsive therapy COVID-19 COVID-19 Sprain of left foot Chronic post-traumatic stress disorder (PTSD) COPD (chronic obstructive pulmonary disease) Increased BMI GERD (gastroesophageal reflux disease) Recurrent major depression-severe Acute post-traumatic stress disorder Injury, self-inflicted Suicidal ideation Self-harming behavior Intentional self-harm Suicidal ideation Borderline personality disorder Schizoaffective disorder Adjustment disorder Asthma Depression Anxiety PTSD (post-traumatic stress disorder) Family History Family History Mother Brain cancer Other No family history of cardiac disease Social History Social History Household Members: Unknown / Unable to assess Household Members Other:: alf staff and peers Housing: Other Housing Other:: Correction Do you presently have visiting nurse or other home services: No Unable to assess alcohol history related to: Unable to respond Alcohol intake: never Comment: 1:1 sitter Patient Tobacco Use Status: Former Tobacco user Tobacco use type: Cigarette Cigarette Packs Per Day: 0.5 Cigarettes Per Day: 4 Years Smoked: 20 e-Cigarette/Vaping Use: Never Used Second Hand Smoke Exposure: Yes Substance Use Type: Marijuana service: No Current occupation: rt handed Sexual orientation: Straight/Heterosexual Physical Exam Vital Signs: Appearance: Alert. Oriented X3. No acute distress. Eyes: Pupils equal, round and reactive to light. ENT: Pharynx normal. Neck: Normal inspection. Neck supple. CVS: Normal heart rate and rhythm. Pulses normal. Respiratory: No respiratory distress. Breath sounds normal. Abdomen: Soft and nontender. Skin: Skin warm and dry. Normal skin color. Normal skin turgor. Extremities: No lower extremity edema. L upper inner thigh there was a dressing, no packing noted just tape and gauze, there is no cellulitis and no abscess no drainage Neuro: Oriented X 3. No motor deficit. No sensory deficit. CN2-12 intact Medical Decision Making Medical Decision Making MDM Narrative: 39 yo female with PMH of PTSD, schizoaffective disorder, asthma, adjustment disorder, GERD here with c/o SI and depression I did look at her abscess but it is normal in appearance now with no signs of infection. At this time labs, IM medications at her request not restraints. Care team consult Differential Diagnosis Differential Diagnoses: The differential diagnosis associated with the presentation includes SI, depression, PTSD Admission/Observation Consideration of admission/observation: Escalation of care including admission/observation considered physician observation started at 320pm signed out to Dr. Lyman pending labs and CARE team work up Independent Historian Clinical information obtained from an independent historian. History obtained from or confirmed by: EMS External Record Review External record reviewed: Inpatient record Discharge Plan Discharge Clinical Impression: Chronic post-traumatic stress disorder (PTSD) Patient Disposition: Still a Patient Prescriptions: No Action clonidine HCl 0.1 mg tablet 0.1 mg PO TID benztropine 0.5 mg tablet 0.5 mg PO BID haloperidol 5 mg tablet 5 mg PO TID PRN (Reason: hallucinations) diphenhydramine HCl [Banophen] 50 mg capsule 100 mg PO BEDTIME haloperidol decanoate 100 mg/mL solution 75 mg IM Q4W prazosin 5 mg capsule 15 mg PO BEDTIME trazodone 100 mg tablet 200 mg PO BEDTIME omeprazole 20 mg capsule,delayed release(DR/EC) 20 mg PO Q OTHER DAY albuterol sulfate [Ventolin HFA] 90 mcg/actuation HFA aerosol inhaler 2 puff INHALATION QID PRN (Reason: wheezing) lithium carbonate 300 mg tablet 300 mg PO BID duloxetine 60 mg capsule,delayed release(DR/EC) 60 mg PO QAM psyllium husk [Daily Fiber] 0.4 gram capsule 0.8 g PO BID ibuprofen 600 mg tablet 600 mg PO TID PRN (Reason: arthritis) zolpidem 10 mg tablet 10 mg PO BEDTIME multivitamin Tablet 1 tab PO DAILY prazosin 1 mg capsule 1 mg PO BEDTIME cetirizine 10 mg tablet 10 mg PO DAILY lorazepam 1 mg Tablet 1 mg PO TID PRN (Reason: anxiety/agitation) Qty: 0 0RF Print Language: Niuean
[2024-06-23 15:30] VITALS: BP 118/76; BP 120/63; PULSE 80; PULSE 81; RESP 18; TEMP 37.6; O2SAT 93; O2SAT 97; BMI 40.2
[2024-06-23] MEDS: Haloperidol Lactate 5 MG/ML VIAL IM (15:46)
[2024-06-23] MEDS: LORazepam 2 MG/ML VIAL IM (15:46)
--- NOTE | 2024-06-23 15:55 | PC.NURSE ---
Pt comes to ED today via EMS for SI. Pt reports she plans to punch herself in head until her brain stops working. A&Ox3, VSS, low grade temp noted Pt reports a recent I & D of an abscess to her groin with [address] Gonzales to the pod to assess Pt. this RN present for I & D site assessment. Pt medicated per OCT.
[2024-06-23 16:18] LABS: Alanine Aminotransferase 11 U/L (0-31); Albumin Level 3.7 g/dL (3.5-5.0); Alkaline Phosphatase 48 U/L (39-117); Anion Gap 14 (12-20); Aspartate Amino Transferase 24 U/L (5-31); Bilirubin Direct 0.1 mg/dL (0.0-0.5); Bilirubin Total 0.3 mg/dL (0.0-1.0); Blood Urea Nitrogen 5 mg/dL (9-16); Calcium 9.4 mg/dL (8.4-10.2); Carbon Dioxide 19 mmol/L (22-29); Chloride 107 mmol/L (96-108); Estimated Glomerular Filt Rate > 60; Ethanol < 10 mg/dL; Glucose Random 79 mg/dL (60-115); HCG Quantitative < 2 mIU/mL; Potassium 4.8 mmol/L (3.3-5.1); Sodium 135 mmol/L (135-145); Total Protein 6.7 g/dL (6.5-8.0)
--- NOTE | 2024-06-23 17:03 | PC.NURSE ---
Security on unit for belongings check. Pts belongings secured in locker on unit.
[2024-06-23 17:16] LABS: Appearance Urine Clear; Color Urine Yellow; Glucose Urine UA Negative (Negative); Leukocyte Esterase Urine Negative (Negative); Nitrite Urine Negative (Negative); Specific Gravity - Urine <= 1.005 (1.005-1.025); Urine Blood Negative (Negative); Urine Ketones Negative (Negative); Urine Protein Negative (Neg-Trace)
--- NOTE | 2024-06-23 18:11 | MHC.EDTECH ---
Tried to draw blood on patient but she is sound asleep and doesnt want blood drawn at this time
--- NOTE | 2024-06-23 19:05 | PC.NURSE ---
patient appears to remain at rest presently respirations are even and unlabored patient appears in no distress
[2024-06-23 20:40] LABS: Amphetamine Screen Urine Not Detected (Not Detect); Barbiturates, Urine Not Detected (Not Detect); Benzodiazepines Screen Urine Not Detected (Not Detect); Buprenorphine Scr Not Detected (Not Detect); Cannabinoid Screen Urine POSITIVE (Not Detect); Cocaine Screen Urine Not Detected (Not Detect); Fentanyl, urine Not Detected (Not Detect); Methadone Screen, Urine Not Detected (Not Detect); Opiate Screen Urine Not Detected (Not Detect); Oxycodone Screen Urine Not Detected (Not Detect); Phencyclidine Screen Urine Not Detected (Not Detect)
[2024-06-23 23:05] VITALS: BP 118/76
[2024-06-23] MEDS: Prazosin HCL 1 MG CAPSULE PO (23:05)
[2024-06-23] MEDS: Prazosin HCL 5 MG CAPSULE 15 MG PO ×2 (23:05)
[2024-06-23] MEDS: diphenhydrAMINE HCL 25 MG CAPSULE 100 MG PO (23:06)
[2024-06-23] MEDS: Zolpidem Tartrate 5 MG TABLET 10 MG PO (23:06)
[2024-06-23] MEDS: traZODone HCL 100 MG TABLET 200 MG PO (23:07)
[2024-06-23] MEDS: cloNIDine HCL 0.1 MG TABLET PO (23:07)
[2024-06-23] MEDS: Lithium Carbonate 300 MG CAPSULE PO (23:07)
[2024-06-23] MEDS: Benztropine Mesylate 0.5 MG TABLET PO (23:07)
[2024-06-23 23:09] LABS: MANUAL DIFF FLAG NO
[2024-06-23 23:10] LABS: Basophils Percent Auto 0.5 % (0-2); Eosinophils Absolute Auto 0.1 X10*3/uL (0.0-0.4); Eosinophils Percent Auto 2.2 % (0-4); Hematocrit 38.2 % (37.0-47.0); Hemoglobin 12.6 g/dl (12.0-16.0); Imm Gran Abs Auto 0.01 X10*3/uL (0.00-0.03); Imm Gran Pct Auto 0.2 % (0.0-0.4); Lymphocytes Absolute Auto 1.8 X10*3/uL (1.2-4.9); Lymphocytes Percent Auto 29.2 % (20-40); Mean Corpuscular Hemoglobin 30.1 pg (27.0-33.0); Mean Corpuscular Volume 91.2 fL (80.0-98.0); Mean Platelet Volume 10.7 fL (9.4-12.3); Monocytes Absolute Auto 0.5 X10*3/uL (0.1-1.2); Monocytes Percent Auto 7.3 % (2-11); Neutrophils Absolute Auto 3.8 x10*3/uL (2.0-8.3); Neutrophils Percent Auto 60.6 % (45-73); Platelet Count 269 X10*3/uL (160-400); Red Blood Count 4.19 X10*6/uL (4.20-5.50); Red Cell Distribution Width 13.2 % (11.0-16.0); White Blood Count 6.3 X10*3/uL (4.8-10.8)
--- NOTE | 2024-06-23 23:23 | PC.NURSE ---
patient awoke after sleeping for several hours (at least since 1899) went to rest room requested tata azul and soon after being delivered patient was gesturing striking own forehead with fist, with moderate force, t/w asked about having a staff sit with client and client stated this would help her feel more comfortable... patient soon thereafter took scheduled meds and stopped the self harming gesture behavior, will continue close obs status
[2024-06-23] MEDS: LORazepam 1 MG TABLET PO (23:27)
[2024-06-23] MEDS: HaloperidoL 5 MG TABLET PO (23:27)
[2024-06-23 23:30] VITALS: BP 125/68; PULSE 81; RESP 18; TEMP 36.7; O2SAT 97
--- NOTE | 2024-06-24 02:28 | MHC.CARE ---
Pt medicated . She will be assessed by the CARE team in the morning.
[2024-06-24] MEDS: Loratadine 10 MG TABLET PO (09:46)
[2024-06-24] MEDS: DULoxetine HCl 60 MG CAPSULE.DR PO (09:46)
[2024-06-24] MEDS: Omeprazole 20 MG CAPSULE.DR PO (09:46)
[2024-06-24] MEDS: HaloperidoL 5 MG TABLET PO (09:55)
[2024-06-24] MEDS: LORazepam 1 MG TABLET PO (09:55)
[2024-06-24 10:23] VITALS: BP 125/68; PULSE 81; RESP 18; TEMP 36.7; O2SAT 97
== END 2024-06-24 10:28 | disposition home or self-care (01) ==
PROVIDERS: Emergency Provider Emergency Medicine; PCP Nurse Practitioner Family
DX: F43.12 Post-traumatic stress disorder, chronic (principal); R45.851 Suicidal ideations; F25.1 Schizoaffective disorder, depressive type; F41.9 Anxiety disorder, unspecified; F43.20 Adjustment disorder, unspecified; F60.3 Borderline personality disorder; J45.909 Unspecified asthma, uncomplicated; F12.90 Cannabis use, unspecified, uncomplicated; Z87.891 Personal history of nicotine dependence; Z79.899 Other long term (current) drug therapy
CPT/HCPCS: 36415; 80048; 80076; 80178; 80307; 81003; 83735; 84702; 85025; 96372; 99284; 99285; J1630; J2060; S9485

== ENCOUNTER 2024-07-03 05:52 | Day surgery (SDC) | payer OTHER, SELFPAY ==
[2024-07-03] VITALS (8 sets, daily range): BP systolic 104–153; BP diastolic 57–91; PULSE 66–84; RESP 15–18; TEMP 36.5–36.9; O2SAT 95–98; BMI 42.4
[2024-07-03] MEDS: Lactated Ringers 1,000 ML 100 ML IVCONT (06:46)
--- NOTE | 2024-07-03 07:02 | MHC.SHP ---
Pre-Procedural Eval Section A - 24 Hr Update-Section A only Date of Service: 07/03/24 The patient is an INPATIENT: No Changes since office visit: Yes Cold of Flu in the past 2 weeks, Yes New Medical Problems, Yes Changes in Medication and Yes Patient answered all questions The patient has been examined within 24 hours of the surgical procedure. The History & Physical has been completed within 30 days and I have reviewed it.: Yes Section B - Complete if H&P > 30 days Chief Complaint: depression Allergies: Allergies Allergy/AdvReac Type Severity Reaction Status Date / Time carbamazepine [From TEGRETOL] AdvReac Mild Nausea and Verified 06/23/24 15:35 Vomiting topiramate [From Topamax] AdvReac Mild Nausea and Verified 06/23/24 15:35 Vomiting Plan I have reviewed the history and physical and performed a pertinent physical examination on my patient. No changes have occurred unless specified. Time Spent With Patient Time: Total time managing care of this patient today ____ minutes.
--- NOTE | 2024-07-03 07:43 | HO.ECTPROC ---
ECT Procedure Note Diagnosis/Treatment Date of Service: 07/03/24 Diagnosis: Bipolar disorder Previous ECT Date: 06/09/24 Treatment: Maintenance Interval Clinical Notes: The patient reported that she was able to cope with the anniversary of the of her sister, improvement of depression. No side effects with the previous ECT. Today we did the ECT with the usual parameters and she had a good seizure that resolved by itself. No complications. Time: Total time managing care of this patient today ____ minutes. ECT Settings Device: THYMATRON DGx Electrode Placement: Bitemporal Program/Pulse Width: 0.50 Energy Percent: 100 Seizure Duration By EEG (in seconds): 25 By Motor Observation (in seconds): 21 Medications Administration General Anesthetic: Etomidate (14) Muscle Relaxant: Succinylcholine (100) Airway Management Airway Management: Bag Mask Ventilation Treatment Recommendations No Changes Recommended: No change Pt Tolerated Procedure w/o Issue: Yes
--- NOTE | 2024-07-03 07:48 | P.CONAN_ITS ---
[facility] Active Problems Active Problems: All Active Problems Osteoarthritis of right knee (Acute) Chronic post-traumatic stress disorder (PTSD) (Chronic) Schizoaffective disorder, depressive type (Chronic) Borderline personality disorder (Chronic) Auditory hallucinations (Acute) Port-A-Cath in place (Acute) Intentional self-harm (Acute) COPD (chronic obstructive pulmonary disease) (Acute) Asthma (Acute) Adjustment disorder (Acute) Anxiety (Acute) Injury of ligament of right knee (Acute) Sprain of anterior cruciate ligament of right knee (Acute) Hernia (Chronic) Increased BMI (Acute) GERD (gastroesophageal reflux disease) (Acute) Past Medical History Medical History Port-A-Cath in place History of electroconvulsive therapy COVID-19 COVID-19 Sprain of left foot Chronic post-traumatic stress disorder (PTSD) COPD (chronic obstructive pulmonary disease) Increased BMI GERD (gastroesophageal reflux disease) Recurrent major depression-severe Acute post-traumatic stress disorder Injury, self-inflicted Suicidal ideation Self-harming behavior Intentional self-harm Suicidal ideation Borderline personality disorder Schizoaffective disorder Adjustment disorder Asthma Depression Anxiety PTSD (post-traumatic stress disorder) Family History Family History Mother Brain cancer Other No family history of cardiac disease Family history of problems with anesthesia: No Surgical History History of Problems with Anesthesia: No Social History Social History Household Members: Unknown / Unable to assess Household Members Other:: long-term staff and peers Housing: Other Housing Other:: [facility] Do you presently have visiting nurse or other home services: No Unable to assess alcohol history related to: Unable to respond Alcohol intake: never Comment: 1:1 sitter Patient Tobacco Use Status: Former Tobacco user Tobacco use type: Cigarette Cigarette Packs Per Day: 0.5 Cigarettes Per Day: 4 Years Smoked: 20 e-Cigarette/Vaping Use: Never Used Second Hand Smoke Exposure: Yes Substance Use Type: Marijuana Advance Directives: No Advance Directives Information Provided: Yes service: No Current occupation: rt handed Sexual orientation: Straight/Heterosexual Meds Allergies Allergy/AdvReac Type Severity Reaction Status Date / Time carbamazepine [From TEGRETOL] AdvReac Mild Nausea and Verified 06/23/24 15:35 Vomiting topiramate [From Topamax] AdvReac Mild Nausea and Verified 06/23/24 15:35 Vomiting Active Medications: Current Medications Lactated Ringer's (Lr) 1,000 mls @ 100 mls/hr IVCONT .Q10H SULEIMAN Last Admin: 07/03/24 06:46 Dose: 100 mls/hr Home Medications ?Medication ?Instructions ?Recorded ?Confirmed ?Last Taken ?Type albuterol sulfate 90 mcg/actuation 2 puff inhalation QID PRN wheezing 04/30/24 06/23/24 05/29/24 07:00 History aerosol inhaler (Ventolin HFA) benztropine 0.5 mg tablet 0.5 mg PO BID 04/30/24 06/23/24 06/23/24 14:00 History clonidine HCl 0.1 mg tablet 0.1 mg PO TID 04/30/24 06/23/24 06/23/24 14:00 History diphenhydramine HCl 50 mg capsule 100 mg PO BEDTIME insomnia 04/30/24 06/23/24 06/22/24 20:00 History (Banophen) duloxetine 60 mg capsule,delayed 60 mg PO QAM 04/30/24 06/23/24 06/23/24 09:00 History release haloperidol 5 mg tablet 5 mg PO TID PRN hallucinations 04/30/24 06/23/24 Unknown History haloperidol decanoate 100 mg/mL 75 mg IM Q4W 04/30/24 06/23/24 05/29/24 07:00 History intramuscular solution lithium carbonate 300 mg tablet 300 mg PO BID 04/30/24 06/23/24 06/23/24 08:00 History omeprazole 20 mg capsule,delayed 20 mg PO Q OTHER DAY 04/30/24 06/23/24 05/29/24 07:00 History release prazosin 5 mg capsule 15 mg PO BEDTIME 04/30/24 06/23/24 06/22/24 20:00 History trazodone 100 mg tablet 200 mg PO BEDTIME insomnia 04/30/24 06/23/24 06/22/24 20:00 History cetirizine 10 mg tablet 10 mg PO DAILY 05/17/24 06/23/24 06/23/24 08:00 History ibuprofen 600 mg tablet 600 mg PO TID PRN arthritis 05/17/24 06/23/24 05/29/24 07:00 History multivitamin 1 tab PO DAILY 05/17/24 06/23/24 06/23/24 08:00 History prazosin 1 mg capsule 1 mg PO BEDTIME 05/17/24 06/23/24 06/22/24 20:00 History psyllium husk 0.4 gram capsule 0.8 g PO BID 05/17/24 06/23/24 06/23/24 08:00 History (Daily Fiber) zolpidem 10 mg tablet 10 mg PO BEDTIME insomnia 05/17/24 06/23/24 06/22/24 20:00 History Exam Height,Weight and Vital Signs: Height 4 ft 11 in Weight 95.254 kg Last Vital Signs Temp 97.7 F 07/03/24 06:41 Pulse 83 07/03/24 06:41 Resp 16 07/03/24 06:41 BP 140/80 H 07/03/24 06:41 Pulse Ox 97 07/03/24 06:41 O2 Del Method Room Air 07/03/24 06:41 Airway Mallampati Class: III TM Dist: >3cm Neck ROM: Full Loose/Missing/Broken Teeth: Yes and Upper Assessment and Plan Assessment Anesthesia Assessment: Anesthesia Plan Discussed and Chart Reviewed Final Anesthetic Review Family History of Problems with Anesthesia: No History of Problems with Anesthesia: No NPO: Yes ASA Class: III Final Preanesthetic Review: No Changes in Pt Med Stat, Consent Obtained/Reviewed and Anes Risks/Benef Reviewed Patient Risk: Intermediate Procedure Risk: Low Anesthetic Plan Anesthetic Plan: GA Disposition: Standard PACU
== END 2024-07-03 09:46 | disposition home or self-care (01) ==
PROVIDERS: PCP Nurse Practitioner Family; Visit Provider Psychiatry & Neurology Psychiatry
PROC: (CPT 90870; principal; 2024-07-03 07:00)
DX: F31.9 Bipolar disorder, unspecified (principal); F60.3 Borderline personality disorder; F43.10 Post-traumatic stress disorder, unspecified; J44.9 Chronic obstructive pulmonary disease, unspecified; Z87.891 Personal history of nicotine dependence; Z79.1 Long term (current) use of non-steroidal anti-inflammatories (NSAID); Z79.899 Other long term (current) drug therapy
CPT/HCPCS: 90870; J0330; J1642; J2405

== ENCOUNTER → 2024-07-03 05:52 | Outpatient (BNV) | payer OTHER, SELFPAY | PROVIDERS: PCP Nurse Practitioner Family; Visit Provider Psychiatry & Neurology Psychiatry | DX: F33.3 Major depressive disorder, recurrent, severe with psychotic symptoms (principal) | CPT/HCPCS: 90870 ==

== ENCOUNTER 2024-07-17 12:48 | Day surgery (SDC) | payer OTHER, SELFPAY ==
[2024-07-17] VITALS (7 sets, daily range): BP systolic 109–155; BP diastolic 66–88; PULSE 87–99; RESP 16–20; TEMP 36.5–37.1; O2SAT 96–98; BMI 44.4
--- NOTE | 2024-07-17 13:30 | P.CONAN_ITS ---
HPI - Anesthesia Eval Consult details Narrative: 39 yo female patient for ECT PMFSH Active Problems Active Problems: All Active Problems Osteoarthritis of right knee (Acute) Chronic post-traumatic stress disorder (PTSD) (Chronic) Schizoaffective disorder, depressive type (Chronic) Borderline personality disorder (Chronic) Auditory hallucinations (Acute) Port-A-Cath in place (Acute) Intentional self-harm (Acute) COPD (chronic obstructive pulmonary disease) (Acute) Asthma (Acute) Adjustment disorder (Acute) Anxiety (Acute) Injury of ligament of right knee (Acute) Sprain of anterior cruciate ligament of right knee (Acute) Hernia (Chronic) Increased BMI (Acute) GERD (gastroesophageal reflux disease) (Acute) Past Medical History Medical History Port-A-Cath in place History of electroconvulsive therapy COVID-19 COVID-19 Sprain of left foot Chronic post-traumatic stress disorder (PTSD) COPD (chronic obstructive pulmonary disease) Increased BMI GERD (gastroesophageal reflux disease) Recurrent major depression-severe Acute post-traumatic stress disorder Injury, self-inflicted Suicidal ideation Self-harming behavior Intentional self-harm Suicidal ideation Borderline personality disorder Schizoaffective disorder Adjustment disorder Asthma Depression Anxiety PTSD (post-traumatic stress disorder) Family History Family History Mother Brain cancer Other No family history of cardiac disease Family history of problems with anesthesia: No Surgical History History of Problems with Anesthesia: No Social History Social History Household Members: Unknown / Unable to assess Household Members Other:: [facility] staff and peers Housing: Other Housing Other:: [facility] Do you presently have visiting nurse or other home services: No Unable to assess alcohol history related to: Unable to respond Alcohol intake: never Comment: 1:1 sitter Patient Tobacco Use Status: Former Tobacco user Tobacco use type: Cigarette Cigarette Packs Per Day: 0.5 Cigarettes Per Day: 4 Years Smoked: 20 e-Cigarette/Vaping Use: Never Used Second Hand Smoke Exposure: Yes Substance Use Type: Marijuana Advance Directives: No Advance Directives Information Provided: Yes service: No Current occupation: rt handed Sexual orientation: Straight/Heterosexual Meds Allergies Allergy/AdvReac Type Severity Reaction Status Date / Time carbamazepine [From TEGRETOL] AdvReac Mild Nausea and Verified 06/23/24 15:35 Vomiting topiramate [From Topamax] AdvReac Mild Nausea and Verified 06/23/24 15:35 Vomiting Home Medications ?Medication ?Instructions ?Recorded ?Confirmed ?Last Taken ?Type albuterol sulfate 90 mcg/actuation 2 puff inhalation QID PRN wheezing 04/30/24 06/23/24 05/29/24 07:00 History aerosol inhaler (Ventolin HFA) benztropine 0.5 mg tablet 0.5 mg PO BID 04/30/24 06/23/24 06/23/24 14:00 History clonidine HCl 0.1 mg tablet 0.1 mg PO TID 04/30/24 06/23/24 06/23/24 14:00 History diphenhydramine HCl 50 mg capsule 100 mg PO BEDTIME insomnia 04/30/24 06/23/24 06/22/24 20:00 History (Banophen) duloxetine 60 mg capsule,delayed 60 mg PO QAM 04/30/24 06/23/24 06/23/24 09:00 History release haloperidol 5 mg tablet 5 mg PO TID PRN hallucinations 04/30/24 06/23/24 Unknown History haloperidol decanoate 100 mg/mL 75 mg IM Q4W 04/30/24 06/23/24 05/29/24 07:00 History intramuscular solution lithium carbonate 300 mg tablet 300 mg PO BID 04/30/24 06/23/24 06/23/24 08:00 History omeprazole 20 mg capsule,delayed 20 mg PO Q OTHER DAY 04/30/24 06/23/24 05/29/24 07:00 History release prazosin 5 mg capsule 15 mg PO BEDTIME 04/30/24 06/23/24 06/22/24 20:00 History trazodone 100 mg tablet 200 mg PO BEDTIME insomnia 04/30/24 06/23/24 06/22/24 20:00 History cetirizine 10 mg tablet 10 mg PO DAILY 05/17/24 06/23/24 06/23/24 08:00 History ibuprofen 600 mg tablet 600 mg PO TID PRN arthritis 05/17/24 06/23/24 05/29/24 07:00 History multivitamin 1 tab PO DAILY 05/17/24 06/23/2424 08:00 History prazosin 1 mg capsule 1 mg PO BEDTIME 05/17/24 06/23/24 06/22/24 20:00 History psyllium husk 0.4 gram capsule 0.8 g PO BID 05/17/24 06/23/24 06/23/24 08:00 History (Daily Fiber) zolpidem 10 mg tablet 10 mg PO BEDTIME insomnia 05/17/24 06/23/24 06/22/24 20:00 History Exam Height,Weight and Vital Signs: Height 4 ft 11 in Weight 99.79 kg Airway Mallampati Class: III TM Dist: >3cm Neck ROM: Full Loose/Missing/Broken Teeth: Yes (Poor dentition. Many missing. Some broken. Denies loose teeth) Heart: RRR Lungs: CTAB Assessment and Plan Assessment Anesthesia Assessment: Anesthesia Plan Discussed and Chart Reviewed Final Anesthetic Review Family History of Problems with Anesthesia: No History of Problems with Anesthesia: No NPO: Yes ASA Class: III Final Preanesthetic Review: No Changes in Pt Med Stat, Meds/Allgs Chart Reviewed, Consent Obtained/Reviewed and Anes Risks/Benef Reviewed Patient Risk: Intermediate Procedure Risk: Intermediate Assessment/Block/Sedation in SS: Assess/Block/Sedation-SS Anesthetic Plan Anesthetic Plan: GA Disposition: Standard PACU
--- NOTE | 2024-07-17 14:10 | MHC.SHP ---
Pre-Procedural Eval Section A - 24 Hr Update-Section A only Date of Service: 07/17/24 The patient is an INPATIENT: No Changes since office visit: Yes Cold of Flu in the past 2 weeks, Yes New Medical Problems, Yes Changes in Medication and Yes Patient answered all questions The patient has been examined within 24 hours of the surgical procedure. The History & Physical has been completed within 30 days and I have reviewed it.: No Section B - Complete if H&P > 30 days Chief Complaint: depression Allergies: Allergies Allergy/AdvReac Type Severity Reaction Status Date / Time carbamazepine [From TEGRETOL] AdvReac Mild Nausea and Verified 06/23/24 15:35 Vomiting topiramate [From Topamax] AdvReac Mild Nausea and Verified 06/23/24 15:35 Vomiting Plan I have reviewed the history and physical and performed a pertinent physical examination on my patient. No changes have occurred unless specified. Time Spent With Patient Time: Total time managing care of this patient today ____ minutes.
[2024-07-17] MEDS: Lactated Ringers 1,000 ML 100 ML IVCONT (14:12)
--- NOTE | 2024-07-17 14:23 | HO.ECTPROC ---
ECT Procedure Note Diagnosis/Treatment Date of Service: 07/17/24 Diagnosis: Bipolar disorder Previous ECT Date: 07/03/24 Treatment: Maintenance Interval Clinical Notes: The patient reported stable mood, she had a good Thanksgiving. Denies side effects with prior ECT. ECT done as usual, no complications, woke up well. Time: Total time managing care of this patient today ____ minutes. ECT Settings Device: THYMATRON DGx Electrode Placement: Bitemporal Program/Pulse Width: 0.50 Energy Percent: 100 Seizure Duration By EEG (in seconds): 25 By Motor Observation (in seconds): 0 Medications Administration General Anesthetic: Etomidate (14) Muscle Relaxant: Succinylcholine (100) Airway Management Airway Management: Bag Mask Ventilation Treatment Recommendations No Changes Recommended: No change Pt Tolerated Procedure w/o Issue: Yes
[2024-07-17] MEDS: Heparin Sodium,Porcine Flush 500 UNIT/5 ML SYRINGE IVFLUSH (15:21)
== END 2024-07-17 15:50 | disposition home or self-care (01) ==
LOC: HO.SSS 12:48
PROVIDERS: PCP Nurse Practitioner Family; Visit Provider Psychiatry & Neurology Psychiatry
PROC: (CPT 90870; principal; 2024-07-17 14:00)
DX: F31.9 Bipolar disorder, unspecified (principal); F60.3 Borderline personality disorder; F25.9 Schizoaffective disorder, unspecified; F43.10 Post-traumatic stress disorder, unspecified; J44.9 Chronic obstructive pulmonary disease, unspecified; J45.40 Moderate persistent asthma, uncomplicated; Z79.1 Long term (current) use of non-steroidal anti-inflammatories (NSAID); Z79.899 Other long term (current) drug therapy; Z87.891 Personal history of nicotine dependence
CPT/HCPCS: 90870; J0330; J1642; J2405

== ENCOUNTER → 2024-07-17 12:48 | Outpatient (BNV) | payer OTHER, SELFPAY | PROVIDERS: PCP Nurse Practitioner Family; Visit Provider Psychiatry & Neurology Psychiatry | DX: F33.2 Major depressive disorder, recurrent severe without psychotic features (principal) | CPT/HCPCS: 90870 ==

== ENCOUNTER 2024-07-22 19:26 | Emergency (ER) | payer OTHER, SELFPAY ==
[2024-07-22 19:32] VITALS: BP 128/82; BP 140/85; PULSE 84; PULSE 85; RESP 18; TEMP 36.3; O2SAT 96; O2SAT 99; BMI 44.4
[2024-07-22 19:41] VITALS: PULSE 84; RESP 16; TEMP 36.3; O2SAT 96
--- NOTE | 2024-07-22 19:52 | ED.GENADULT ---
HPI - General Adult General Chief complaint: Psychiatric Symptoms Stated complaint: SI, depression, anxious Time Seen by Provider: 07/22/24 19:52 History of Present Illness ED Provider: Nura KUMAR narrative: The patient is a 39-year-old female with a history of chronic mental illness who lives at a skilled nursing. Apparently she called an ambulance today because she was feeling increasingly anxious and having suicidal thoughts. She did not act on any suicidal thoughts. She was feeling agitated when she arrived and requested something to help her calm down. She was given lorazepam which seems to have helped. She denies any fever, sweats, chills or other medical complaints. Related Data Home Medications ?Medication ?Instructions ?Recorded ?Confirmed albuterol sulfate 90 mcg/actuation 2 puff inhalation QID PRN wheezing 04/30/24 06/23/24 aerosol inhaler (Ventolin HFA) benztropine 0.5 mg tablet 0.5 mg PO BID 04/30/24 06/23/24 clonidine HCl 0.1 mg tablet 0.1 mg PO TID 04/30/24 06/23/24 diphenhydramine HCl 50 mg capsule 100 mg PO BEDTIME insomnia 04/30/24 06/23/24 (Banophen) duloxetine 60 mg capsule,delayed 60 mg PO QAM 04/30/24 06/23/24 release haloperidol 5 mg tablet 5 mg PO TID PRN hallucinations 04/30/24 06/23/24 haloperidol decanoate 100 mg/mL 75 mg IM Q4W 04/30/24 06/23/24 intramuscular solution lithium carbonate 300 mg tablet 300 mg PO BID 04/30/24 06/23/24 omeprazole 20 mg capsule,delayed 20 mg PO Q OTHER DAY 04/30/24 06/23/24 release prazosin 5 mg capsule 15 mg PO BEDTIME 04/30/24 06/23/24 trazodone 100 mg tablet 200 mg PO BEDTIME insomnia 04/30/24 06/23/24 cetirizine 10 mg tablet 10 mg PO DAILY 05/17/24 06/23/24 ibuprofen 600 mg tablet 600 mg PO TID PRN arthritis 05/17/24 06/23/24 multivitamin 1 tab PO DAILY 05/17/24 06/23/24 prazosin 1 mg capsule 1 mg PO BEDTIME 05/17/24 06/23/24 psyllium husk 0.4 gram capsule 0.8 g PO BID 05/17/24 06/23/24 (Daily Fiber) zolpidem 10 mg tablet 10 mg PO BEDTIME insomnia 05/17/24 06/23/24 Previous Rx's ?Medication ?Instructions ?Recorded lorazepam 1 mg tablet 1 mg PO TID PRN anxiety/agitation 05/22/24 #0 tabs Allergies Allergy/AdvReac Type Severity Reaction Status Date / Time carbamazepine [From TEGRETOL] AdvReac Mild Nausea and Verified 07/22/24 19:39 Vomiting topiramate [From Topamax] AdvReac Mild Nausea and Verified 07/22/24 19:39 Vomiting Review of Systems Review of Systems: Yes all other systems are reviewed and are negative PMFSH Past Medical History Medical History Port-A-Cath in place History of electroconvulsive therapy COVID-19 COVID-19 Sprain of left foot Chronic post-traumatic stress disorder (PTSD) COPD (chronic obstructive pulmonary disease) Increased BMI GERD (gastroesophageal reflux disease) Recurrent major depression-severe Acute post-traumatic stress disorder Injury, self-inflicted Suicidal ideation Self-harming behavior Intentional self-harm Suicidal ideation Borderline personality disorder Schizoaffective disorder Adjustment disorder Asthma Depression Anxiety PTSD (post-traumatic stress disorder) Family History Family History Mother Brain cancer Other No family history of cardiac disease Social History Social History Household Members: Unknown / Unable to assess Household Members Other:: skilled nursing staff and peers Housing: Other Housing Other:: Alf Do you presently have visiting nurse or other home services: No Unable to assess alcohol history related to: Unable to respond Alcohol intake: never Comment: 1:1 sitter Patient Tobacco Use Status: Former Tobacco user Tobacco use type: Cigarette Cigarette Packs Per Day: 0.5 Cigarettes Per Day: 4 Years Smoked: 20 e-Cigarette/Vaping Use: Never Used Second Hand Smoke Exposure: Yes Use of substances other than those prescribed or required for medical reasons: No Substance Use Type: Marijuana Advance Directives: No Advance Directives Information Provided: No Do you have a plan to hurt others: No Plan service: No Current occupation: rt handed Sexual orientation: Straight/Heterosexual Physical Exam ED Vital Signs: Vital Signs - 24 hr 07/22/24 19:32 07/22/24 19:41 Temperature 97.4 F 97.4 F Pulse Rate 84 84 Respiratory Rate 18 16 Blood Pressure 128/82 Pulse Oximetry 96 96 Oxygen Delivery Method Room Air Room Air BMI result Body Mass Index 44.4 Const Other: The patient is somewhat chronically ill appearing 39-year-old female who had fallen asleep prior to my evaluation. She aroused easily with verbal stimulation. She seemed sleepy. She did not seem in acute distress. HENMT Other: Face is symmetrical. Mucous membranes moist. Eyes General: appearance normal, both eyes and all related structures Neck Neck: Yes full ROM Resp Effort & Inspection: normal respiratory effort Auscultation: clear to auscultation bilaterally Cardio Rate: regular rate Rhythm: regular rhythm Heart sounds: S1 normal heart sound present and S2 normal heart sound present GI Other: Abdomen is soft and nontender Skin Other: Skin is dry and unremarkable Neuro Other: The patient was sleepy but easily arousable. Face is symmetrical. Speech is clear. Eye movements intact. She moves her extremities symmetrically and appropriately. She has a steady gait. She seems neurologically intact. Extrem Other: No peripheral edema Medications Administered Discontinued Medications Generic Name Dose Route Start Last Admin Trade Name Leno PRN Reason Stop Dose Admin Lorazepam 2 mg 07/22/24 19:52 07/22/24 19:54 Lorazepam 1 Mg Tablet PO 07/22/24 19:53 2 mg ONCE ONE Administration Medical Decision Making Medical Decision Making [facility] Narrative: Patient is a 39-year-old woman with a history of chronic mental illness who lives at a skilled nursing who comes to the emergency room with increasing anxiety and suicidal thoughts. She has not done anything to harm herself. She is cooperative. She responded well to lorazepam. She is medically clear for evaluation by the care team. She will be placed in physician observation. Lab Data 07/22/24 20:46 07/22/24 20:46 Labs: Lab Results 07/22/24 07/22/24 Range/Units 19:50 20:46 WBC 6.6 (4.8-10.8) X10*3/uL RBC 3.96 L (4.20-5.50) X10*6/uL Hgb 11.9 L (12.0-16.0) g/dl Hct 35.9 L (37.0-47.0) % MCV 90.7 (80.0-98.0) fL MCH 30.1 (27.0-33.0) pg MCHC 33.1 (31.0-35.0) g/dl RDW 13.0 (11.0-16.0) % Plt Count 275 (160-400) X10*3/uL MPV 10.5 (9.4-12.3) fL Immature Gran % (Auto) 0.3 (0.0-0.4) % Neut % (Auto) 70.0 (45-73) % Lymph % (Auto) 22.7 (20-40) % [place] % (Auto) 5.3 (2-11) % Eos % (Auto) 1.4 (0-4) % Baso % (Auto) 0.3 (0-2) % Lymph # (Auto) 1.5 (1.2-4.9) X10*3/uL [place] # (Auto) 0.4 (0.1-1.2) X10*3/uL Eos # (Auto) 0.1 (0.0-0.4) X10*3/uL Baso # (Auto) 0.0 (0.0-0.2) X10*3/uL Abs Immat Gran (auto) 0.02 (0.00-0.03) X10*3/uL Absolute Neuts (auto) 4.6 (2.0-8.3) x10*3/uL Absolute Nucleated RBC 0.000 (0.0-0.012) X10*3/uL Nucleated RBC % (auto) 0.0 (0.0-0.2) /100WBC Sodium 139 (135-145) mmol/L Potassium 3.7 D (3.3-5.1) mmol/L Chloride 106 (96-108) mmol/L Carbon Dioxide 26 (22-29) mmol/L Anion Gap 11 L (12-20) BUN 11 (9-16) mg/dL Creatinine 0.77 (0.5-1.4) mg/dL Estim Creat Clear Calc 102.9 Estimated GFR > 60 Random Glucose 86 (60-115) mg/dL Calcium 9.2 (8.4-10.2) mg/dL Total Bilirubin 0.1 (0.0-1.0) mg/dL AST 14 (5-31) U/L ALT 14 (0-31) U/L Alkaline Phosphatase 57 (39-117) U/L Total Protein 6.9 (6.5-8.0) g/dL Albumin 4.1 (3.5-5.0) g/dL Urine Color Yellow Urine Appearance Clear Urine pH 7.0 (5.0-9.0) Ur Specific [place] <= 1.005 (1.005-1.025) Urine Protein Negative (Neg-Trace) mg/dL Urine Glucose (UA) Negative (Negative) mg/dL Urine Ketones Negative (Negative) mg/dL Urine Blood Negative (Negative) Urine Nitrite Negative (Negative) Ur Leukocyte Esterase Negative (Negative) Urine RBC 0-2 (0-2) /HPF Urine WBC 0-5 (0-5) /HPF Ur Squamous Epith Cells 0-2 (0-2) /HPF Urine Bacteria None Seen (None Seen) Hyaline Casts 0-2 (0-2) /LPF Urine Test NEGATIVE (NEGATIVE) Salicylates < 5.0 L (15-30) mg/dL Urine Opiates Screen Not Detected (Not Detect) Ur Buprenorphine Scrn Not Detected (Not Detect) ng/mL Ur Oxycodone Screen Not Detected (Not Detect) ng/mL Urine Methadone Screen Not Detected (Not Detect) ng/mL Urine Fentanyl Screen Not Detected (Not Detect) Acetaminophen < 3 (<30) mcg/mL Ur Barbiturates Screen Not Detected (Not Detect) Ur Phencyclidine Scrn Not Detected (Not Detect) Ur Amphetamines Screen Not Detected (Not Detect) U Benzodiazepines Scrn Not Detected (Not Detect) [place] 0.71 (0.60-1.20) mmol/L Urine Cocaine Screen Not Detected (Not Detect) U Marijuana (THC) Screen POSITIVE H (Not Detect) Ethyl Alcohol < 10 mg/dL Discharge Plan Discharge Clinical Impression: Anxiety Patient Disposition: Still a Patient Prescriptions: No Action clonidine HCl 0.1 mg tablet 0.1 mg PO TID benztropine 0.5 mg tablet 0.5 mg PO BID haloperidol 5 mg tablet 5 mg PO TID PRN (Reason: hallucinations) diphenhydramine HCl [Banophen] 50 mg capsule 100 mg PO BEDTIME haloperidol decanoate 100 mg/mL solution 75 mg IM Q4W prazosin 5 mg capsule 15 mg PO BEDTIME trazodone 100 mg tablet 200 mg PO BEDTIME omeprazole 20 mg capsule,delayed release(DR/EC) 20 mg PO Q OTHER DAY albuterol sulfate [Ventolin HFA] 90 mcg/actuation HFA aerosol inhaler 2 puff INHALATION QID PRN (Reason: wheezing) lithium carbonate 300 mg tablet 300 mg PO BID duloxetine 60 mg capsule,delayed release(DR/EC) 60 mg PO QAM psyllium husk [Daily Fiber] 0.4 gram capsule 0.8 g PO BID ibuprofen 600 mg tablet 600 mg PO TID PRN (Reason: arthritis) zolpidem 10 mg tablet 10 mg PO BEDTIME multivitamin Tablet 1 tab PO DAILY prazosin 1 mg capsule 1 mg PO BEDTIME cetirizine 10 mg tablet 10 mg PO DAILY lorazepam 1 mg Tablet 1 mg PO TID PRN (Reason: anxiety/agitation) Qty: 0 0RF Interventions: [place]-Suicide Risk Severity Scale Last Done: 07/22/24 19:41 Print Language: Zimbabwean
[2024-07-22] MEDS: LORazepam 1 MG TABLET 2 MG PO (19:54)
[2024-07-22 19:59] LABS: Appearance Urine Clear; Color Urine Yellow; Glucose Urine UA Negative (Negative); Leukocyte Esterase Urine Negative (Negative); Nitrite Urine Negative (Negative); Specific Gravity - Urine <= 1.005 (1.005-1.025); Urine Blood Negative (Negative); Urine Ketones Negative (Negative); Urine Protein Negative (Neg-Trace)
[2024-07-22 20:04] LABS: Bacteria Urine None Seen (None Seen); Hyaline Casts Urine 0-2 /LPF (0-2); RBC Urine 0-2 /HPF (0-2); Squamous Epithelial Cell Urine 0-2 /HPF (0-2); WBC Urine 0-5 /HPF (0-5)
[2024-07-22 20:08] LABS: Amphetamine Screen Urine Not Detected (Not Detect); Barbiturates, Urine Not Detected (Not Detect); Benzodiazepines Screen Urine Not Detected (Not Detect); Buprenorphine Scr Not Detected (Not Detect); Cannabinoid Screen Urine POSITIVE (Not Detect); Cocaine Screen Urine Not Detected (Not Detect); Fentanyl, urine Not Detected (Not Detect); Methadone Screen, Urine Not Detected (Not Detect); Opiate Screen Urine Not Detected (Not Detect); Oxycodone Screen Urine Not Detected (Not Detect); Phencyclidine Screen Urine Not Detected (Not Detect)
[2024-07-22 20:51] LABS: MANUAL DIFF FLAG NO
[2024-07-22 20:52] LABS: Basophils Percent Auto 0.3 % (0-2); Eosinophils Absolute Auto 0.1 X10*3/uL (0.0-0.4); Eosinophils Percent Auto 1.4 % (0-4); Hematocrit 35.9 % (37.0-47.0); Hemoglobin 11.9 g/dl (12.0-16.0); Imm Gran Abs Auto 0.02 X10*3/uL (0.00-0.03); Imm Gran Pct Auto 0.3 % (0.0-0.4); Lymphocytes Absolute Auto 1.5 X10*3/uL (1.2-4.9); Lymphocytes Percent Auto 22.7 % (20-40); Mean Corpuscular HGB Conc 33.1 g/dl (31.0-35.0); Mean Corpuscular Hemoglobin 30.1 pg (27.0-33.0); Mean Corpuscular Volume 90.7 fL (80.0-98.0); Mean Platelet Volume 10.5 fL (9.4-12.3); Monocytes Absolute Auto 0.4 X10*3/uL (0.1-1.2); Monocytes Percent Auto 5.3 % (2-11); Neutrophils Absolute Auto 4.6 x10*3/uL (2.0-8.3); Platelet Count 275 X10*3/uL (160-400); Red Blood Count 3.96 X10*6/uL (4.20-5.50); White Blood Count 6.6 X10*3/uL (4.8-10.8)
[2024-07-22 21:00] LABS: Lithium 0.71 mmol/L (0.60-1.20)
[2024-07-22 21:11] LABS: Acetaminophen LAB < 3 mcg/mL (<30); Alanine Aminotransferase 14 U/L (0-31); Albumin Level 4.1 g/dL (3.5-5.0); Alkaline Phosphatase 57 U/L (39-117); Anion Gap 11 (12-20); Aspartate Amino Transferase 14 U/L (5-31); Bilirubin Total 0.1 mg/dL (0.0-1.0); Blood Urea Nitrogen 11 mg/dL (9-16); Calcium 9.2 mg/dL (8.4-10.2); Carbon Dioxide 26 mmol/L (22-29); Chloride 106 mmol/L (96-108); Creatinine Clr Calc Pharmacy 102.9; Estimated Glomerular Filt Rate > 60; Ethanol < 10 mg/dL; Glucose Random 86 mg/dL (60-115); Potassium 3.7 mmol/L (3.3-5.1); Salicylate < 5.0 mg/dL (15-30); Sodium 139 mmol/L (135-145); Total Protein 6.9 g/dL (6.5-8.0)
[2024-07-22 22:23] LABS: UPreg QC Valid YES; Urine Pregnancy NEGATIVE (NEGATIVE)
--- NOTE | 2024-07-22 23:27 | PC.NURSE ---
Patient sleeping at this time. RR even and unlabored, chest rise and fall noted. Will continue to monitor
[2024-07-23 06:42] VITALS: RESP 16
[2024-07-23 12:08] VITALS: BP 00/00; PULSE 0; RESP 0; TEMP -17.7; TEMP 0; O2SAT 0
--- NOTE | 2024-07-23 12:31 | MHC.CARE ---
Pt has been placed on 3 day follow up and a 7 day alert with [facility]
== END 2024-07-23 12:19 | disposition home or self-care (01) ==
PROVIDERS: Emergency Medicine; Emergency Provider Emergency Medicine Emergency Medical Services; PCP Nurse Practitioner Family
DX: F41.9 Anxiety disorder, unspecified (principal); R45.851 Suicidal ideations; R45.1 Restlessness and agitation; F43.12 Post-traumatic stress disorder, chronic; F25.1 Schizoaffective disorder, depressive type; J44.9 Chronic obstructive pulmonary disease, unspecified; F43.20 Adjustment disorder, unspecified; F12.90 Cannabis use, unspecified, uncomplicated; E66.9 Obesity, unspecified; Z68.41 Body mass index [BMI] 40.0-44.9, adult; Z87.891 Personal history of nicotine dependence; Z91.52 Personal history of nonsuicidal self-harm; Z79.899 Other long term (current) drug therapy
CPT/HCPCS: 36415; 80053; 80143; 80178; 80179; 80307; 81001; 81025; 85025; 99285; S9485

== ENCOUNTER 2024-07-24 13:01 | Outpatient (RCR) | payer OTHER, SELFPAY | END 2024-08-18 10:02 | disposition home or self-care (01) | LOC: HO.PTWFD 13:01 | PROVIDERS: PCP Nurse Practitioner Family; Visit Provider Physician Assistant | DX: M17.11 Unilateral primary osteoarthritis, right knee (principal) | CPT/HCPCS: 97161 ==

== ENCOUNTER 2024-07-29 20:17 | Inpatient (IN) | payer OTHER, SELFPAY ==
[2024-07-29 20:42] VITALS: BP 115/72; BP 143/78; PULSE 104; PULSE 115; RESP 17; TEMP 36.8; O2SAT 100; O2SAT 99; BMI 42.4
[2024-07-29 20:53] VITALS: BP 115/72; PULSE 104; RESP 17; TEMP 36.8; O2SAT 99
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
[2024-07-29 21:37] LABS: MANUAL DIFF FLAG NO
[2024-07-29 21:42] LABS: Basophils Percent Auto 0.3 % (0-2); Eosinophils Absolute Auto 0.1 X10*3/uL (0.0-0.4); Eosinophils Percent Auto 1.7 % (0-4); Hematocrit 34.9 % (37.0-47.0); Hemoglobin 11.5 g/dl (12.0-16.0); Imm Gran Abs Auto 0.02 X10*3/uL (0.00-0.03); Imm Gran Pct Auto 0.3 % (0.0-0.4); Lymphocytes Absolute Auto 1.7 X10*3/uL (1.2-4.9); Lymphocytes Percent Auto 27.5 % (20-40); Mean Corpuscular Hemoglobin 29.9 pg (27.0-33.0); Mean Corpuscular Volume 90.9 fL (80.0-98.0); Mean Platelet Volume 10.7 fL (9.4-12.3); Monocytes Absolute Auto 0.5 X10*3/uL (0.1-1.2); Monocytes Percent Auto 7.5 % (2-11); Neutrophils Absolute Auto 3.8 x10*3/uL (2.0-8.3); Neutrophils Percent Auto 62.7 % (45-73); Platelet Count 246 X10*3/uL (160-400); Red Blood Count 3.84 X10*6/uL (4.20-5.50); Red Cell Distribution Width 12.7 % (11.0-16.0)
--- NOTE | 2024-07-29 21:47 | PC.NURSE ---
PT engaging in self harm behaviors when alone in room, 1:1 sitter placed for safety. Seen by provider. Plan of care ongoing
[2024-07-29 21:53] LABS: Alanine Aminotransferase 9 U/L (0-31); Albumin Level 3.7 g/dL (3.5-5.0); Alkaline Phosphatase 47 U/L (39-117); Anion Gap 10 (12-20); Aspartate Amino Transferase 19 U/L (5-31); Bilirubin Total 0.2 mg/dL (0.0-1.0); Blood Urea Nitrogen 10 mg/dL (9-16); Calcium 8.9 mg/dL (8.4-10.2); Carbon Dioxide 24 mmol/L (22-29); Chloride 107 mmol/L (96-108); Estimated Glomerular Filt Rate > 60; Ethanol < 10 mg/dL; Glucose Random 99 mg/dL (60-115); Potassium 3.6 mmol/L (3.3-5.1); Sodium 137 mmol/L (135-145); Total Protein 6.4 g/dL (6.5-8.0)
[2024-07-29 23:21] LABS: Appearance Urine Clear; Color Urine Yellow; Glucose Urine UA Negative (Negative); Leukocyte Esterase Urine Negative (Negative); Nitrite Urine Negative (Negative); PH 6.5 (5.0-9.0); Urine Blood Negative (Negative); Urine Ketones Negative (Negative); Urine Pregnancy NEGATIVE (NEGATIVE); Urine Protein Negative (Neg-Trace)
[2024-07-29 23:22] LABS: UPreg QC Valid YES
[2024-07-29 23:39] LABS: Amphetamine Screen Urine Not Detected (Not Detect); Barbiturates, Urine Not Detected (Not Detect); Benzodiazepines Screen Urine Not Detected (Not Detect); Buprenorphine Scr Not Detected (Not Detect); Cannabinoid Screen Urine POSITIVE (Not Detect); Cocaine Screen Urine Not Detected (Not Detect); Fentanyl, urine Not Detected (Not Detect); Methadone Screen, Urine Not Detected (Not Detect); Opiate Screen Urine Not Detected (Not Detect); Oxycodone Screen Urine Not Detected (Not Detect); Phencyclidine Screen Urine Not Detected (Not Detect)
[2024-07-29] MEDS: OLANZapine 10 MG VIAL IM (23:39)
--- NOTE | 2024-07-29 23:58 | PC.NURSE ---
pt request IM for severe anxiety. notified provider, new orders placed. Pt medicated as per OCT. now sleeping soundly. Notified charge, 1:1 discontinued
[2024-07-30 07:23] VITALS: RESP 16
--- NOTE | 2024-07-30 07:24 | PC.NURSE ---
Assumed care of patient at 0645, patient appears to be sleeping, respirations are even and unlabored, no apparent distress is noted at this time. Holding on vitals until patient is awake to avoid unnecessary agitation. Continue plan of care for CARE team
--- NOTE | 2024-07-30 08:09 | PHA.MEDREC ---
Pharmacy Consult ? Medication Reconciliation rn has completed the medication reconciliation, PHARMACY REVIEWED.
[2024-07-30] MEDS: Multivitamin TABLET 1 TAB PO (08:59)
[2024-07-30] MEDS: DULoxetine HCl 60 MG CAPSULE.DR PO (08:59)
[2024-07-30] MEDS: cloNIDine HCL 0.1 MG TABLET PO ×3 (08:59→19:58)
[2024-07-30] MEDS: Loratadine 10 MG TABLET PO (08:59)
[2024-07-30] MEDS: Fluticasone/Vilanterol 200/25 BLST.W.DEV 1 PUFF INHALE (08:59)
[2024-07-30] MEDS: Tiotropium Bromide 2.5 mcg 1 PUFF/2.5 MCG MIST.INHAL 2 PUFF INHALE (08:59)
[2024-07-30] MEDS: Cholecalciferol (Vitamin D3) 25 MCG TABLET PO (08:59)
[2024-07-30] MEDS: Lithium Carbonate 300 MG CAPSULE PO ×2 (09:02→19:58)
[2024-07-30] MEDS: Omeprazole 20 MG CAPSULE.DR PO (09:02)
[2024-07-30] MEDS: Benztropine Mesylate 0.5 MG TABLET PO ×2 (09:02→19:59)
--- NOTE | 2024-07-30 09:38 | PC.NURSE ---
Patient is calm and cooperative, no apparent distress. Pt verbalizes that things are really tough right now, especially with my father in the hospital . Patient took all morning medications without issue
[2024-07-30 14:27] VITALS: BMI 38.6
[2024-07-30 14:36] VITALS: BP 131/91; PULSE 95; RESP 18; TEMP 36.8; O2SAT 99
[2024-07-30] MEDS: HaloperidoL 5 MG TABLET PO ×2 (14:52→22:21)
[2024-07-30] MEDS: LORazepam 1 MG TABLET 2 MG PO (15:31)
[2024-07-30 16:15] LABS: Alanine Aminotransferase 14 U/L (0-31); Albumin Level 3.9 g/dL (3.5-5.0); Alkaline Phosphatase 54 U/L (39-117); Anion Gap 10 (12-20); Aspartate Amino Transferase 16 U/L (5-31); Bilirubin Total 0.3 mg/dL (0.0-1.0); Blood Urea Nitrogen 8 mg/dL (9-16); Calcium 9.2 mg/dL (8.4-10.2); Carbon Dioxide 21 mmol/L (22-29); Chloride 111 mmol/L (96-108); Estimated Glomerular Filt Rate > 60; Glucose Random 96 mg/dL (60-115); Potassium 4.2 mmol/L (3.3-5.1); Sodium 138 mmol/L (135-145); Total Protein 6.8 g/dL (6.5-8.0)
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
[2024-07-30] MEDS: LORazepam 1 MG TABLET PO (19:21)
[2024-07-30 19:58] VITALS: BP 138/72
[2024-07-30] MEDS: traZODone HCL 100 MG TABLET 200 MG PO (19:58)
[2024-07-30] MEDS: Zolpidem Tartrate 5 MG TABLET 10 MG PO (19:58)
[2024-07-30 19:59] VITALS: BP 134/72
[2024-07-30] MEDS: diphenhydrAMINE HCL 25 MG CAPSULE 100 MG PO (19:59)
[2024-07-30] MEDS: Prazosin HCL 5 MG CAPSULE 15 MG PO (19:59)
[2024-07-30 20:00] VITALS: BP 136/82; PULSE 95; RESP 16; TEMP 36.7; O2SAT 98
[2024-07-30] MEDS: hydrOXYzine HCL 25 MG TABLET PO (22:21)
[2024-07-31] MEDS: LORazepam 1 MG TABLET PO ×4 (07:45→18:02)
[2024-07-31] MEDS: Fluticasone/Vilanterol 200/25 BLST.W.DEV 1 PUFF INHALE (07:47)
[2024-07-31] MEDS: Tiotropium Bromide 2.5 mcg 1 PUFF/2.5 MCG MIST.INHAL 2 PUFF INHALE (07:47)
[2024-07-31] MEDS: HaloperidoL 5 MG TABLET PO ×2 (07:47→21:59)
[2024-07-31] MEDS: Benztropine Mesylate 0.5 MG TABLET PO ×2 (07:47→20:52)
[2024-07-31] MEDS: Lithium Carbonate 300 MG CAPSULE PO ×2 (07:48→20:55)
[2024-07-31] MEDS: Multivitamin TABLET 1 TAB PO (07:48)
[2024-07-31] MEDS: hydrOXYzine HCL 25 MG TABLET PO ×2 (07:48→18:02)
[2024-07-31] MEDS: cloNIDine HCL 0.1 MG TABLET PO ×3 (07:48→20:54)
[2024-07-31] MEDS: Psyllium seed 3.7 GM PACKET PO ×2 (07:48→20:58)
[2024-07-31] MEDS: Loratadine 10 MG TABLET PO (07:48)
[2024-07-31] MEDS: DULoxetine HCl 60 MG CAPSULE.DR PO (07:50)
[2024-07-31] MEDS: Cholecalciferol (Vitamin D3) 25 MCG TABLET PO (07:50)
[2024-07-31 08:00] VITALS: BP 112/66; PULSE 81; TEMP 36.4; O2SAT 98
[2024-07-31 08:43] LABS: Cholesterol 156 mg/dL (<200); HDL Cholesterol 50 mg/dL (>40); LDL Cholesterol Calculated 91 mg/dL (<100); Triglycerides 76 mg/dL (<150)
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
[2024-07-31 14:13] VITALS: BP 118/67
[2024-07-31 20:00] VITALS: RESP 18
[2024-07-31] MEDS: Zolpidem Tartrate 5 MG TABLET 10 MG PO (20:52)
[2024-07-31] MEDS: traZODone HCL 100 MG TABLET 200 MG PO (20:52)
[2024-07-31] MEDS: Calcium + Vitamin D 250 MG TABLET PO (20:53)
[2024-07-31] MEDS: diphenhydrAMINE HCL 25 MG CAPSULE 100 MG PO (20:55)
[2024-07-31] MEDS: Prazosin HCL 5 MG CAPSULE 15 MG PO (20:57)
[2024-08-01] MEDS: hydrOXYzine HCL 25 MG TABLET PO ×2 (00:09→20:00)
[2024-08-01] MEDS: traZODone HCL 50 MG TABLET PO ×2 (00:09→20:00)
[2024-08-01] MEDS: LORazepam 1 MG TABLET PO ×2 (00:09→15:39)
[2024-08-01] MEDS: Haloperidol Lactate 5 MG/ML VIAL IM ×2 (02:22→21:45)
[2024-08-01] MEDS: LORazepam 2 MG/ML VIAL 1 MG IM ×2 (02:26→21:44)
--- NOTE | 2024-08-01 09:02 | P.PNPSI_ITS ---
Subjective Subjective Date of Service: 08/01/24 Reason For Visit: SI Interim History: met with patient; discussed with team head banging off/on last night, was able to be redirected very irritable with nurse, feeling nurse inattentive. Pt however is asking staff when she needs prns or feeling unsafe, asking for IM's. plastic surgery manager says last few weeks, more mood dysregulated and emotionally reactive than usual; atypically she has been calling 911 instead of going to staff first. Discussed this with pt who says this episode is heavier than the others, feels more intense and harder to climb out of. She says she'll continue trying to resist self-harm and letting staff know when she needs a prn discussed smoking cessation, options, including patch vs wellbutrin; reviewed risks/side-effects of Wellbutrin and pt would like to try it as it of course also works as an anti-depressant Mental Status Exam Mental Status Exam Narrative: Pt is alert and oriented; behavior is cooperative, relatively calm; dressed in casual attire gown with unkempt hair; numerous of scars up and down bilateral forearms from hx of superficial cutting; mood is described as depressed and affect congruent, downcast; eye contact appropriate; Speech is slowed, quiet; normal prosody; psychomotor retardation present; thought process is goal directed; Thought content is on worries about her father, self harm; otherwise pertinent to relevant topics and without any delusional content, paranoid ideations or grandiosity; +SI, urges to self harm; no HI. intermittent AH; Patients insight and judgment are impaired. Diagnostics Vital Signs (24Hr): Vital Signs - 24 hr 07/31/24 14:13 07/31/24 20:00 Respiratory Rate 18 Blood Pressure 118/67 BMI result Body Mass Index 38.6 Labs 07/29/24 21:32 07/30/24 14:55 Labs: Laboratory Results - last 48 hr 07/30/24 07/31/24 14:55 07:57 Sodium 138 Potassium 4.2 Chloride 111 H Carbon Dioxide 21 L Anion Gap 10 L BUN 8 L Creatinine 0.73 Estim Creat Clear Calc 100.0 Estimated GFR > 60 Random Glucose 96 Calcium 9.2 Total Bilirubin 0.3 AST 16 ALT 14 Alkaline Phosphatase 54 Total Protein 6.8 Albumin 3.9 Triglycerides 76 Cholesterol 156 LDL Cholesterol, Calc 91 HDL Cholesterol 50 Medications Medications Current Medications Acetaminophen (Acetaminophen 325 Mg Tablet) 650 mg PO Q6H PRN PRN Reason: Headache/Pain Mild Scale (1-3) Al Hydroxide/Mg Hydroxide (Magnesium Hydrox/Alum Hydrox 30 Ml Oral.Susp) 30 ml PO Q6H PRN PRN Reason: Heartburn/Nausea Albuterol Sulfate (Albuterol Sulfate 90 Mcg 8 Gm Inhaler) 2 puff INHALE QID PRN PRN Reason: wheezing Benztropine Mesylate (Benztropine Mesylate 0.5 Mg Tablet) 0.5 mg PO BID [facility] Last Admin: 07/31/24 20:52 Dose: 0.5 mg Calcium Carbonate/Cholecalciferol (Calcium + Vitamin D 250 Mg Tablet) 1 mg PO BID [facility] Last Admin: 07/31/24 20:53 Dose: 1 mg Clonidine HCl (Clonidine Hcl 0.1 Mg Tablet) 0.1 mg PO TID [facility]; Protocol Last Admin: 07/31/24 20:54 Dose: 0.1 mg Diphenhydramine HCl (Diphenhydramine Hcl 25 Mg Capsule) 100 mg PO BEDTIME [facility] Last Admin: 07/31/24 20:55 Dose: 100 mg Duloxetine HCl (Duloxetine Hcl 60 Mg Capsule.Dr) 60 mg PO DAILY [facility] Last Admin: 07/31/24 07:50 Dose: 60 mg Fluticasone/Vilanterol (Fluticasone/Vilanterol 200/25 Blst.W.Dev) 1 puff INHALE RDAILY [facility] Last Admin: 07/31/24 07:47 Dose: 1 puff Haloperidol (Haloperidol 5 Mg Tablet) 5 mg PO TID PRN PRN Reason: hallucinations Last Admin: 07/31/24 21:59 Dose: 5 mg Haloperidol Decanoate (Haloperidol Decanoate 50 Mg/Ml Vial) 75 mg IM Q28D [facility] Hydroxyzine HCl (Hydroxyzine Hcl 25 Mg Tablet) 25 mg PO Q6H PRN PRN Reason: Anxiety Last Admin: 08/01/24 00:09 Dose: 25 mg [place] Carbonate ([place] Carbonate 300 Mg Capsule) 300 mg PO BID [facility] Last Admin: 07/31/24 20:55 Dose: 300 mg Loratadine (Loratadine 10 Mg Tablet) 10 mg PO DAILY [facility] Last Admin: 07/31/24 07:48 Dose: 10 mg Lorazepam (Lorazepam 1 Mg Tablet) 1 mg PO Q6H PRN PRN Reason: severe anxiety Last Admin: 08/01/24 00:09 Dose: 1 mg Lorazepam (Lorazepam 1 Mg Tablet) 1 mg PO TID PRN PRN Reason: anxiety/milder agitation Last Admin: 07/31/24 17:44 Dose: 1 mg Magnesium Hydroxide (Milk Of Magnesia 30 Ml Oral.Susp) 30 ml PO DAILY PRN PRN Reason: Constipation Multivitamins/Vitamin C (Multivitamin Tablet) 1 tab PO DAILY [facility] Last Admin: 07/31/24 07:48 Dose: 1 tab Omeprazole (Omeprazole 20 Mg Capsule.Dr) 20 mg PO Q2D@0630 [facility] Last Admin: 07/30/24 09:02 Dose: 20 mg Prazosin HCl (Prazosin Hcl 5 Mg Capsule) 15 mg PO BEDTIME [facility]; Protocol Last Admin: 07/31/24 20:57 Dose: 15 mg Psyllium Hydrophilic Mucilloid (Psyllium Seed 3.7 Gm Packet) 3.7 gm PO BID [facility] Last Admin: 07/31/24 20:58 Dose: 3.7 gm Tiotropium [place] (Tiotropium [place] 2.5 Mcg 1 Puff/2.5 Mcg Mist.Inhal) 2 puff INHALE RDAILY [facility] Last Admin: 07/31/24 07:47 Dose: 2 puff Trazodone HCl (Trazodone Hcl 100 Mg Tablet) 200 mg PO BEDTIME [facility] Last Admin: 07/31/24 20:52 Dose: 200 mg Trazodone HCl (Trazodone Hcl 50 Mg Tablet) 50 mg PO BEDTIME MRX1 PRN PRN Reason: Insomnia Last Admin: 08/01/24 00:09 Dose: 50 mg Vitamin D (Cholecalciferol (Vitamin D3) 25 Mcg Tablet) 25 mcg PO DAILY [facility] Last Admin: 07/31/24 07:50 Dose: 25 mcg Zolpidem Tartrate (Zolpidem Tartrate 5 Mg Tablet) 10 mg PO BEDTIME [facility] Last Admin: 07/31/24 20:52 Dose: 10 mg Allergies Allergies Allergy/AdvReac Type Severity Reaction Status Date / Time carbamazepine [From TEGRETOL] AdvReac Mild Nausea and Verified 07/29/24 20:52 Vomiting topiramate [From Topamax] AdvReac Mild Nausea and Verified 12/14/24 20:52 Vomiting Assessment & Plan Assessment & Plan (1) Chronic post-traumatic stress disorder (PTSD): Status: Chronic Code(s): F43.12 - Post-traumatic stress disorder, chronic (2) Borderline personality disorder: Status: Chronic Code(s): F60.3 - Borderline personality disorder Plan Pt is a 39 y.o. female, with hx of PTSD (extensive trauma history), and BPD, (she carries a dx of schizoaffective DO, depressive type),chronic SI, chronic self-harming urges/ behaviors and multiple inpatient admissions/ED visits who presents for SI and increased urges to self-harm in face of several psychosocial stressors, primarily her father becoming sick and hospitalized. Patient reports she was doing well enough until this past week when she got a flurry of challenging news namely her father's ulcer, needing emergent operation; patient also learned that her adopted brother had ; additionally her aunt who has significant mental health issues has been texting and calling patient saying nasty things about her family (which is not atypical) to the point where patient had to block her number. Patient said that she just started getting overwhelmed with emotion and felt she was going to attempt suicide if she did not self present. To the ED, she said she had a plan to break glass and roll around in; she started hearing auditory hallucinations to hurt herself. Patient remains with intermittent AH to harm self and urges to hit her head; still, she feels that most of this mood dysregulation is situational and she just needs a few days for it to resolve. No drug or alcohol use. plastic surgery manager says last few weeks, more mood dysregulated and emotionally reactive than usual; atypically she has been calling 911 instead of going to staff first. Formulation/clinical reasoning: Will continue home medications; typically, patient needs a few days of one-to-one and milieu therapy for her mood to return to baseline. Patient says she has not had ECT recently and feels that this is part of the reason she decompensated; she asks if she can have this now. Regarding diagnosis, patient has carried a diagnosis of schizoaffective disorder, however AH always seems to be mood congruent. Thankfully her father is stabilized and is doing better Hospital course: 08/01 head banging off/on last night, was able to be redirected; intermittently irritable with nurse, feeling nurse inattentive. Pt however is asking for prns/IM's when feeling unsafe. Discussed with pt who says this episode is heavier than the others; will continue trying to resist self-harm and letting staff know when she needs a prn -discussed smoking cessation, options, including patch vs wellbutrin; reviewed risks/side-effects of Wellbutrin and pt would like to try it as it of course also works as an anti-depressant will order lithium level Plan: CV 1:1 Continue home medications Start Wellbutrin XL 150mg for smoking cessation and depression one time dose Fluconazole; pt reported yeast infection Ativan 1 mg t.i.d. p.r.n. while inpatient for excessive anxiety Scheduled ECT for August 11; will see if it can be done sooner May have Haldol IM on request for agitation Patient educated on: diagnosis, medication risk/benefits, ECT and therapeutic strategies Informed Consent: understands Reason for continued inpatient stay Substantial Risk for: harm to self and inability to function Time Spent With Patient Time: Total time managing care of this patient today ____ minutes.
[2024-08-01] MEDS: Loratadine 10 MG TABLET PO (10:07)
[2024-08-01] MEDS: DULoxetine HCl 60 MG CAPSULE.DR PO (10:07)
[2024-08-01] MEDS: Lithium Carbonate 300 MG CAPSULE PO ×2 (10:07→20:00)
[2024-08-01 10:08] VITALS: BP 120/80; BP 135/77; PULSE 72; RESP 16; TEMP 36.8; O2SAT 98
[2024-08-01] MEDS: cloNIDine HCL 0.1 MG TABLET PO ×3 (10:08→20:00)
[2024-08-01] MEDS: Multivitamin TABLET 1 TAB PO (10:08)
[2024-08-01] MEDS: Omeprazole 20 MG CAPSULE.DR PO (10:08)
[2024-08-01] MEDS: Benztropine Mesylate 0.5 MG TABLET PO ×2 (10:08→20:00)
[2024-08-01 14:10] VITALS: BP 112/76
[2024-08-01] MEDS: HaloperidoL 5 MG TABLET PO (14:10)
[2024-08-01] MEDS: Fluconazole 150 MG TABLET PO (19:07)
[2024-08-01] MEDS: Calcium + Vitamin D 250 MG TABLET PO (19:59)
[2024-08-01] MEDS: diphenhydrAMINE HCL 25 MG CAPSULE 100 MG PO (19:59)
[2024-08-01 20:00] VITALS: BP 124/68; PULSE 82; RESP 16; O2SAT 99
[2024-08-01] MEDS: Psyllium seed 3.7 GM PACKET PO (20:00)
[2024-08-01] MEDS: traZODone HCL 100 MG TABLET 200 MG PO (20:00)
[2024-08-01] MEDS: Zolpidem Tartrate 5 MG TABLET 10 MG PO (20:00)
[2024-08-01] MEDS: Prazosin HCL 5 MG CAPSULE 15 MG PO (20:00)
--- NOTE | 2024-08-01 21:00 | HO.PM.IMCN ---
History of Present Illness Data of Consult Service Date: 08/01/24 Requesting physician: Maurizio Hernández Primary Care Provider: SINAN Patel Reason for consult: ECT risk stratification Patient 39 year old female with a past medical history significant for OA, PTSD, schizoaffective disorder, borderline personality disorder, combined COPD/asthma unspecified, GERD, obesity, consulted for ECT risk stratification. The patient has had ECT multiple times in the past with good improvement and without any adverse effects or issues with anesthesia. Her last ECT session was on 07/18/2024. Most recent EKG shows normal sinus rhythm. She denies any headaches, nasal congestion, sore throat, shortness of breath, cough, chest pain, abdominal pain, bleeding, urinary symptoms including dysuria or urgency, numbness or tingling. She also denies any history of seizure disorder, stroke, space-occupying lesion in the brain, [place], arrhythmia, bleeding disorder. She does have combined COPD/asthma but reports that this is mild and controlled for which she uses albuterol as needed which is infrequent. She has never had any issues with anesthesia in the past. Review of Systems Constitutional: Constitutional: Denies chills, Denies fatigue, Denies fever(s) and Denies headache(s) Eyes: Eyes: Denies change in vision ENT: Denies headache(s), Denies nasal congestion, Denies nasal discharge and Denies sore throat Cardiovascular: Cardiovascular: Denies chest pain, Denies rapid heart rate, Denies leg edema and Denies dyspnea Respiratory: Respiratory: Denies chest congestion, Denies cough, Denies dyspnea and Denies wheezing Gastrointestinal: Gastrointestinal: Denies constipation, Denies diarrhea, Denies nausea and Denies vomiting Genitourinary: Genitourinary: Denies dysuria and Denies urinary urgency Musculoskeletal: Musculoskeletal: Denies myalgias and Denies arthralgias Integumentary/Breasts: Skin/Breast: Denies rash Neurologic: Denies confusion, Denies headache(s) and Denies seizure-like activity Psychiatric: Psychiatric: Denies confusion Endocrine: Endocrine: Denies fatigue Hematologic/Lymphatic: Hematologic/Lymphatic: Denies easy bleeding and Denies easy bruising Allergic/Immunologic: Allergic/Immunologic: Denies wheezing [facility] Medical History Port-A-Cath in place History of electroconvulsive therapy COVID-19 COVID-19 Sprain of left foot Chronic post-traumatic stress disorder (PTSD) COPD (chronic obstructive pulmonary disease) Increased BMI GERD (gastroesophageal reflux disease) Recurrent major depression-severe Acute post-traumatic stress disorder Injury, self-inflicted Suicidal ideation Self-harming behavior Intentional self-harm Suicidal ideation Borderline personality disorder Schizoaffective disorder Adjustment disorder Asthma Depression Anxiety PTSD (post-traumatic stress disorder) Functional capacity: independent ambulation Family History Mother Brain cancer Other No family history of cardiac disease Social History Household Members: Other Household Members Other:: long-term staff & peers Housing: Other Housing Other:: Correction Do you presently have visiting nurse or other home services: No Unable to assess alcohol history related to: Unable to respond Alcohol intake: never Comment: 1:1 sitter Patient Tobacco Use Status: Former Tobacco user Tobacco use type: Cigarette Cigarette Packs Per Day: 0.5 Cigarettes Per Day: 4 Years Smoked: 20 Smoked in Last 30 Days: No e-Cigarette/Vaping Use: Never Used Patient Interested in Nicotine Replacement: No Patient Given Instructions on How to Stop Smoking: No Second Hand Smoke Exposure: No Use of substances other than those prescribed or required for medical reasons: Yes Substance Use Type: Marijuana Substance Use Type Other:: Medical marijuana card Substance Use Frequency: Daily Last Used Substance: Just Prior to Admission Currently Displaying Signs/Symptoms of Drug Intoxication Withdrawal: No Any prior treatment program specific to substance use: No Have you been hit, kicked, punched, or otherwise hurt by someone within the past year? If so, by whom?: No Do you feel safe in your current relationship?: No Current Relationship Is there a partner from a previous relationship who is making you feel unsafe now?: No Are you made to feel afraid or neglected: No Advance Directives: No Advance Directives Information Provided: No Do you have thoughts of harming others: None Do you have a plan to hurt others: No Plan Recently lost weight without trying: Yes How much weight loss: 14-23 pounds Eating poorly because of decreased appetite: Yes Nutrition screen score: 5 Nutrition Risks: No Nutritional Risk Patient : No : No Poor oral hygiene: No service: No Current occupation: rt handed Sexual orientation: Straight/Heterosexual Meds Allergies Allergy/AdvReac Type Severity Reaction Status Date / Time carbamazepine [From TEGRETOL] AdvReac Mild Nausea and Verified 07/29/24 20:52 Vomiting topiramate [From Topamax] AdvReac Mild Nausea and Verified 07/29/24 20:52 Vomiting Active Medications: Current Medications Acetaminophen (Acetaminophen 325 Mg Tablet) 650 mg PO Q6H PRN PRN Reason: Headache/Pain Mild Scale (1-3) Al Hydroxide/Mg Hydroxide (Magnesium Hydrox/Alum Hydrox 30 Ml Oral.Susp) 30 ml PO Q6H PRN PRN Reason: Heartburn/Nausea Albuterol Sulfate (Albuterol Sulfate 90 Mcg 8 Gm Inhaler) 2 puff INHALE QID PRN PRN Reason: wheezing Benztropine Mesylate (Benztropine Mesylate 0.5 Mg Tablet) 0.5 mg PO BID [facility] Last Admin: 08/01/24 20:00 Dose: 0.5 mg Bupropion HCl (Bupropion Hcl Xl 150 Mg Tab.Er.24h) 150 mg PO DAILY [facility] Calcium Carbonate/Cholecalciferol (Calcium + Vitamin D 250 Mg Tablet) 250 mg PO BID [facility] Last Admin: 08/01/24 19:59 Dose: 250 mg Clonidine HCl (Clonidine Hcl 0.1 Mg Tablet) 0.1 mg PO TID [facility]; Protocol Last Admin: 08/01/24 20:00 Dose: 0.1 mg Diphenhydramine HCl (Diphenhydramine Hcl 25 Mg Capsule) 100 mg PO BEDTIME [facility] Last Admin: 08/01/24 19:59 Dose: 100 mg Duloxetine HCl (Duloxetine Hcl 60 Mg Capsule.Dr) 60 mg PO DAILY [facility] Last Admin: 08/01/24 10:07 Dose: 60 mg Fluticasone/Vilanterol (Fluticasone/Vilanterol 200/25 Blst.W.Dev) 1 puff INHALE RDAILY [facility] Last Admin: 08/01/24 10:55 Dose: Not Given Haloperidol (Haloperidol 5 Mg Tablet) 5 mg PO TID PRN PRN Reason: hallucinations Last Admin: 08/01/24 14:10 Dose: 5 mg Haloperidol Decanoate (Haloperidol Decanoate 50 Mg/Ml Vial) 75 mg IM Q28D [facility] Hydroxyzine HCl (Hydroxyzine Hcl 25 Mg Tablet) 25 mg PO Q6H PRN PRN Reason: Anxiety Last Admin: 08/01/24 20:00 Dose: 25 mg [place] Carbonate (The [place] Carbonate 300 Mg Capsule) 300 mg PO BID [facility] Last Admin: 08/01/24 20:00 Dose: 300 mg Loratadine (Loratadine 10 Mg Tablet) 10 mg PO DAILY [facility] Last Admin: 08/01/24 10:07 Dose: 10 mg Lorazepam (Lorazepam 1 Mg Tablet) 1 mg PO Q6H PRN PRN Reason: severe anxiety Last Admin: 08/01/24 15:39 Dose: 1 mg Lorazepam (Lorazepam 1 Mg Tablet) 1 mg PO TID PRN PRN Reason: anxiety/milder agitation Last Admin: 07/31/24 17:44 Dose: 1 mg Magnesium Hydroxide (Milk Of Magnesia 30 Ml Oral.Susp) 30 ml PO DAILY PRN PRN Reason: Constipation Multivitamins/Vitamin C (Multivitamin Tablet) 1 tab PO DAILY [facility] Last Admin: 08/01/24 10:08 Dose: 1 tab Omeprazole (Omeprazole 20 Mg Capsule.Dr) 20 mg PO Q2D@0630 [facility] Last Admin: 08/01/24 10:08 Dose: 20 mg Prazosin HCl (Prazosin Hcl 5 Mg Capsule) 15 mg PO BEDTIME [facility]; Protocol Last Admin: 08/01/24 20:00 Dose: 15 mg Psyllium Hydrophilic Mucilloid (Psyllium Seed 3.7 Gm Packet) 3.7 gm PO BID [facility] Last Admin: 08/01/24 20:00 Dose: 3.7 gm Tiotropium Dewey (Tiotropium Dewey 2.5 Mcg 1 Puff/2.5 Mcg Mist.Inhal) 2 puff INHALE RDAILY [facility] Last Admin: 08/01/24 10:55 Dose: Not Given Trazodone HCl (Trazodone Hcl 100 Mg Tablet) 200 mg PO BEDTIME [facility] Last Admin: 08/01/24 20:00 Dose: 200 mg Trazodone HCl (Trazodone Hcl 50 Mg Tablet) 50 mg PO BEDTIME MRX1 PRN PRN Reason: Insomnia Last Admin: 08/01/24 20:00 Dose: 50 mg Vitamin D (Cholecalciferol (Vitamin D3) 25 Mcg Tablet) 25 mcg PO DAILY [facility] Last Admin: 08/01/24 11:35 Dose: Not Given Zolpidem Tartrate (Zolpidem Tartrate 5 Mg Tablet) 10 mg PO BEDTIME [facility] Last Admin: 08/01/24 20:00 Dose: 10 mg Home Medications ?Medication ?Instructions ?Recorded ?Confirmed ?Last Taken ?Type albuterol sulfate 90 mcg/actuation 2 puff inhalation QID PRN wheezing 04/30/24 07/29/24 05/29/24 07:00 History aerosol inhaler (Ventolin HFA) benztropine 0.5 mg tablet 0.5 mg PO BID 04/30/24 07/29/24 07/29/24 20:00 History clonidine HCl 0.1 mg tablet 0.1 mg PO TID 04/30/24 07/29/24 07/29/24 History diphenhydramine HCl 50 mg capsule 100 mg PO BEDTIME insomnia 04/30/24 07/29/24 07/29/24 History (Banophen) duloxetine 60 mg capsule,delayed 60 mg PO QAM 04/30/24 07/29/24 07/29/24 History release haloperidol 5 mg tablet 5 mg PO TID PRN hallucinations 04/30/24 07/29/24 07/29/24 History haloperidol decanoate 100 mg/mL 75 mg IM Q4W 04/30/24 07/29/24 07/29/24 History intramuscular solution lithium carbonate 300 mg tablet 300 mg PO BID 04/30/24 07/29/24 07/29/24 History omeprazole 20 mg capsule,delayed 20 mg PO Q OTHER DAY 04/30/24 07/29/24 07/29/24 History release prazosin 5 mg capsule 15 mg PO BEDTIME 04/30/24 07/29/24 07/29/24 20:00 History trazodone 100 mg tablet 200 mg PO BEDTIME insomnia 04/30/24 07/29/24 07/29/24 20:00 History cetirizine 10 mg tablet 10 mg PO DAILY 05/17/24 07/29/24 07/29/24 History ibuprofen 600 mg tablet 600 mg PO TID PRN arthritis 05/17/24 07/30/24 05/29/24 07:00 History multivitamin 1 tab PO DAILY 05/17/24 07/29/24 07/29/24 History psyllium husk 0.4 gram capsule 0.8 g PO BID 05/17/24 07/29/24 07/29/24 History (Daily Fiber) zolpidem 10 mg tablet 10 mg PO BEDTIME insomnia 05/17/24 07/29/24 07/29/24 History calcium 600 mg (as 1 tab PO BID 07/29/24 07/29/24 Unknown History carbonate)-vitamin D3 10 mcg (400 unit) tablet cholecalciferol (vitamin D3) 25 25 mcg PO QAM 07/29/24 07/29/24 07/29/24 History mcg (1,000 unit) tablet (Vitamin D3) fluticasone propionate 230 2 puff inhalation BID 07/29/24 07/29/24 07/29/24 History mcg-salmeterol 21 mcg/actuation HFA inhaler (Advair HFA) umeclidinium 62.5 mcg/actuation 1 inh inhalation DAILY 07/29/24 07/29/24 Unknown History blister powder for inhalation (Incruse Ellipta) Physical Exam Vital Signs and Narrative: Vital Signs: Last Vital Signs Temp 98.2 F 08/01/24 10:08 Pulse 72 08/01/24 10:08 Resp 16 08/01/24 10:08 BP 112/76 08/01/24 14:10 Pulse Ox 98 08/01/24 10:08 O2 Del Method Room Air 08/01/24 10:08 BMI result Body Mass Index 38.6 General: AOx3, no acute distress HEENT: poor dentition Resp: CTA bilaterally CVS: S1, S2, RRR GI: +BS, NT, no distention Skin: Warm, dry Neuro: Cranial nerves II-XII grossly intact bilaterally. Motor grossly intact bilaterally Extremities: No LE edema Psych: Appropriate affect Const: General: No confusion Orientation/consciousness: No confusion Neuro: General: No confusion Results Labs 07/29/24 21:32 07/30/24 14:55 Assessment and Plan (1) Pre-op evaluation: Status: Acute Plan Patient 39 year old female with a past medical history significant for OA, PTSD, schizoaffective disorder, borderline personality disorder, combined COPD/asthma unspecified, GERD, obesity, consulted for ECT risk stratification. Based on past medical history and exam there are no apparent medical contraindications to the planned procedure. Recent EKG with normal sinus rhythm. Anesthesia risk stratification as per anesthesia, ASA class risk III. RCRI score 0. Patient has tolerated ECT well in the past, most recently 07/18/2024. No further treatment or workup indicated at this time. Thank you for allowing me to participate in the pt's care. Signing off for now. Please contact the medical team if any questions or concerns.
[2024-08-02] MEDS: Acetaminophen 325 MG TABLET 650 MG PO ×2 (05:27→21:01)
--- NOTE | 2024-08-02 05:52 | PC.NURSE ---
PT REQUESTED IM HALDOL AND ATIVAN DUE TO AGITATION AFTER RECEIVING HER HS MEDS. MD MONIQUE PITTS CONTACTED. IM HALDOL 5MG AND ATIVAN 1 MG ADMINISTERED WITH POSITIVE EFFECT.
[2024-08-02 08:00] VITALS: BP 101/59; PULSE 67; RESP 16; TEMP 36.4; O2SAT 67
[2024-08-02 09:22] VITALS: BP 101/59
[2024-08-02] MEDS: Calcium + Vitamin D 250 MG TABLET PO ×2 (09:22→20:10)
[2024-08-02] MEDS: cloNIDine HCL 0.1 MG TABLET PO ×3 (09:22→20:11)
[2024-08-02] MEDS: buPROPion HCl XL 150 MG TAB.ER.24H PO (09:22)
[2024-08-02] MEDS: Lithium Carbonate 300 MG CAPSULE PO ×2 (09:22→20:11)
[2024-08-02] MEDS: Loratadine 10 MG TABLET PO (09:22)
[2024-08-02] MEDS: LORazepam 1 MG TABLET PO ×3 (09:22→23:56)
[2024-08-02] MEDS: Benztropine Mesylate 0.5 MG TABLET PO ×2 (09:22→20:10)
[2024-08-02] MEDS: DULoxetine HCl 60 MG CAPSULE.DR PO (09:22)
[2024-08-02] MEDS: hydrOXYzine HCL 25 MG TABLET PO ×2 (09:23→20:10)
[2024-08-02] MEDS: HaloperidoL 5 MG TABLET PO ×3 (09:23→20:11)
[2024-08-02] MEDS: Cholecalciferol (Vitamin D3) 25 MCG TABLET PO (09:23)
[2024-08-02] MEDS: Multivitamin TABLET 1 TAB PO (09:23)
[2024-08-02] MEDS: Psyllium seed 3.7 GM PACKET PO (09:25)
[2024-08-02] MEDS: Fluticasone/Vilanterol 200/25 BLST.W.DEV 1 PUFF INHALE (09:26)
[2024-08-02] MEDS: Tiotropium Bromide 2.5 mcg 1 PUFF/2.5 MCG MIST.INHAL 2 PUFF INHALE (09:26)
[2024-08-02] MEDS: Milk of Magnesia 30 ML ORAL.SUSP PO (09:38)
[2024-08-02] MEDS: Haloperidol Lactate 5 MG/ML VIAL IM ×2 (12:58→21:01)
[2024-08-02] MEDS: LORazepam 2 MG/ML VIAL 1 MG IM ×2 (12:59→21:01)
[2024-08-02 15:36] VITALS: BP 108/78
--- NOTE | 2024-08-02 19:07 | P.PNPSI_ITS ---
Subjective Subjective Date of Service: 08/02/24 Reason For Visit: SI Interim History: Met with patient; discussed with team Patient says she is feeling better; ambivalent about whether or not she is ready to discharge home. Remains with self-harming urges but has been keeping herself from harm. Sleeping and eating well. Reports that Wellbutrin seems to be helping and that she is less depressed; she is hopeful it will help curb nicotine cravings. Also discussed ECT and patient accepts that it might not be able to happen until August 11. Later in the day, unrelated to patient, her roommate became extremely agitated and made a verbal threat and made disparaging comments towards patient. Patient handled it well, removed herself and staff was able to intervene, changing patient's room. Later in the day however patient felt that the unit was simply becoming too overwhelming and triggering and now counter therapeutic (acuity on the unit is indeed high) and was wondering about discharging today. Last Pattern Grader and secondary social studies teacher discussed patient's discharge and that historically she has always had a pretty good sense when she is ready to go home, with which she agrees. Team also discussed with her correction staff who agreed with plan for either discharge or to remain. Patient agreed to remain for another evening and see how it goes but thinks she would probably likely discharge tomorrow. Mental Status Exam Mental Status Exam Narrative: Pt is alert and oriented; behavior is cooperative, relatively calm, a few fleeting instances of mildly bumping head on the wall; dressed in casual attire gown with adequate grooming; numerous of scars up and down bilateral forearms from hx of superficial cutting; mood is described as a little better affect congruent, brighter, more calm; eye contact appropriate; Speech is normal rate, volume and prosody; some psychomotor retardation present but less; thought process is goal directed, logical and linear; Thought content is on worries about her father, struggles with urges to self harm; otherwise pertinent to relevant topics and without any delusional content, paranoid ideations or grandiosity; no SI though urges to self harm; no HI. No AH Patients insight and judgment are impaired but improved and pretty close to baseline; adequate. Diagnostics Vital Signs (24Hr): Vital Signs - 24 hr 08/01/24 20:00 08/02/24 08:00 08/02/24 09:22 Temperature 97.6 F Pulse Rate 82 67 Respiratory Rate 16 16 Blood Pressure 124/68 101/59 L 101/59 L Pulse Oximetry 99 67 L Oxygen Delivery Method Room Air Room Air 08/02/24 15:36 Temperature Pulse Rate Respiratory Rate Blood Pressure 108/78 Pulse Oximetry Oxygen Delivery Method BMI result Body Mass Index 38.6 Labs 07/29/24 21:32 08/03/24 08:02 Medications Medications Current Medications Acetaminophen (Acetaminophen 325 Mg Tablet) 650 mg PO Q6H PRN PRN Reason: Headache/Pain Mild Scale (1-3) Last Admin: 08/02/24 05:27 Dose: 650 mg Al Hydroxide/Mg Hydroxide (Magnesium Hydrox/Alum Hydrox 30 Ml Oral.Susp) 30 ml PO Q6H PRN PRN Reason: Heartburn/Nausea Albuterol Sulfate (Albuterol Sulfate 90 Mcg 8 Gm Inhaler) 2 puff INHALE QID PRN PRN Reason: wheezing Benztropine Mesylate (Benztropine Mesylate 0.5 Mg Tablet) 0.5 mg PO BID [facility] Last Admin: 08/02/24 09:22 Dose: 0.5 mg Bupropion HCl (Bupropion Hcl Xl 150 Mg Tab.Er.24h) 150 mg PO DAILY [facility] Last Admin: 08/02/24 09:22 Dose: 150 mg Calcium Carbonate/Cholecalciferol (Calcium + Vitamin D 250 Mg Tablet) 250 mg PO BID [facility] Last Admin: 08/02/24 09:22 Dose: 250 mg Clonidine HCl (Clonidine Hcl 0.1 Mg Tablet) 0.1 mg PO TID [facility]; Protocol Last Admin: 08/02/24 15:36 Dose: 0.1 mg Diphenhydramine HCl (Diphenhydramine Hcl 25 Mg Capsule) 100 mg PO BEDTIME [facility] Last Admin: 08/01/24 19:59 Dose: 100 mg Duloxetine HCl (Duloxetine Hcl 60 Mg Capsule.Dr) 60 mg PO DAILY [facility] Last Admin: 08/02/24 09:22 Dose: 60 mg Fluticasone/Vilanterol (Fluticasone/Vilanterol 200/25 Blst.W.Dev) 1 puff INHALE RDAILY [facility] Last Admin: 08/02/24 09:26 Dose: 1 puff Haloperidol (Haloperidol 5 Mg Tablet) 5 mg PO TID PRN PRN Reason: hallucinations Last Admin: 08/02/24 15:36 Dose: 5 mg Haloperidol Decanoate (Haloperidol Decanoate 50 Mg/Ml Vial) 75 mg IM Q28D [facility] Hydroxyzine HCl (Hydroxyzine Hcl 25 Mg Tablet) 25 mg PO Q6H PRN PRN Reason: Anxiety Last Admin: 08/02/24 09:23 Dose: 25 mg [place] Carbonate ([place] Carbonate 300 Mg Capsule) 300 mg PO BID [facility] Last Admin: 08/02/24 09:22 Dose: 300 mg Loratadine (Loratadine 10 Mg Tablet) 10 mg PO DAILY [facility] Last Admin: 08/02/24 09:22 Dose: 10 mg Lorazepam (Lorazepam 1 Mg Tablet) 1 mg PO Q6H PRN PRN Reason: severe anxiety Last Admin: 08/02/24 09:22 Dose: 1 mg Lorazepam (Lorazepam 1 Mg Tablet) 1 mg PO TID PRN PRN Reason: anxiety/milder agitation Last Admin: 07/31/24 17:44 Dose: 1 mg Magnesium Hydroxide (Milk Of Magnesia 30 Ml Oral.Susp) 30 ml PO DAILY PRN PRN Reason: Constipation Last Admin: 08/02/24 09:38 Dose: 30 ml Multivitamins/Vitamin C (Multivitamin Tablet) 1 tab PO DAILY [facility] Last Admin: 08/02/24 09:23 Dose: 1 tab Omeprazole (Omeprazole 20 Mg Capsule.Dr) 20 mg PO Q2D@0630 [facility] Last Admin: 08/01/24 10:08 Dose: 20 mg Prazosin HCl (Prazosin Hcl 5 Mg Capsule) 15 mg PO BEDTIME [facility]; Protocol Last Admin: 08/01/24 20:00 Dose: 15 mg Psyllium Hydrophilic Mucilloid (Psyllium Seed 3.7 Gm Packet) 3.7 gm PO BID [facility] Last Admin: 08/02/24 09:25 Dose: 3.7 gm Tiotropium Enterprise (Tiotropium Enterprise 2.5 Mcg 1 Puff/2.5 Mcg Mist.Inhal) 2 puff INHALE RDAILY [facility] Last Admin: 08/02/24 09:26 Dose: 2 puff Trazodone HCl (Trazodone Hcl 100 Mg Tablet) 200 mg PO BEDTIME [facility] Last Admin: 08/01/24 20:00 Dose: 200 mg Trazodone HCl (Trazodone Hcl 50 Mg Tablet) 50 mg PO BEDTIME MRX1 PRN PRN Reason: Insomnia Last Admin: 08/01/24 20:00 Dose: 50 mg Vitamin D (Cholecalciferol (Vitamin D3) 25 Mcg Tablet) 25 mcg PO DAILY [facility] Last Admin: 08/02/24 09:23 Dose: 25 mcg Zolpidem Tartrate (Zolpidem Tartrate 5 Mg Tablet) 10 mg PO BEDTIME [facility] Last Admin: 08/01/24 20:00 Dose: 10 mg Allergies Allergies Allergy/AdvReac Type Severity Reaction Status Date / Time carbamazepine [From TEGRETOL] AdvReac Mild Nausea and Verified 07/29/24 20:52 Vomiting topiramate [From Topamax] AdvReac Mild Nausea and Verified 07/29/24 20:52 Vomiting Assessment & Plan Assessment & Plan (1) MDD (major depressive disorder), recurrent, severe, with psychosis: Status: Acute Code(s): F33.3 - Major depressive disorder, recurrent, severe with psychotic symptoms (2) Chronic post-traumatic stress disorder (PTSD): Status: Chronic Code(s): F43.12 - Post-traumatic stress disorder, chronic (3) Borderline personality disorder: Status: Chronic Code(s): F60.3 - Borderline personality disorder (4) Pre-op evaluation: Status: Acute Code(s): Z01.818 - Encounter for other preprocedural examination Plan Patient 39 year old female with a past medical history significant for OA, PTSD, schizoaffective disorder, borderline personality disorder, combined COPD/asthma unspecified, GERD, obesity, consulted for ECT risk stratification. Pt is a 39 y.o. female, with hx of PTSD (extensive trauma history), and BPD, (she carries a dx of schizoaffective DO, depressive type),chronic SI, chronic self-harming urges/ behaviors and multiple inpatient admissions/ED visits who presents for SI and increased urges to self-harm in face of several psychosocial stressors, primarily her father becoming sick and hospitalized. Patient reports she was doing well enough until this past week when she got a flurry of challenging news namely her father's ulcer, needing emergent operation; patient also learned that her adopted brother had ; additionally her aunt who has significant mental health issues has been texting and calling patient saying nasty things about her family (which is not atypical) to the point where patient had to block her number. Patient said that she just started getting overwhelmed with emotion and felt she was going to attempt suicide if she did not self present. To the ED, she said she had a plan to break glass and roll around in; she started hearing auditory hallucinations to hurt herself. Patient remains with intermittent AH to harm self and urges to hit her head; still, she feels that most of this mood dysregulation is situational and she just needs a few days for it to resolve. No drug or alcohol use. manager care says last few weeks, more mood dysregulated and emotionally reactive than usual; atypically she has been calling 911 instead of going to staff first. Formulation/clinical reasoning: Will continue home medications; typically, patient needs a few days of one-to-one and milieu therapy for her mood to return to baseline. Patient says she has not had ECT recently and feels that this is part of the reason she decompensated; she asks if she can have this now. Regarding diagnosis, patient has carried a diagnosis of schizoaffective disorder, however AH always seems to be mood congruent. Thankfully her father is stabilized and is doing better Hospital course: 08/01 head banging off/on last night, was able to be redirected; intermittently irritable with nurse, feeling nurse inattentive. Pt however is asking for prns/IM's when feeling unsafe. Discussed with pt who says this episode is heavier than the others; will continue trying to resist self-harm and letting staff know when she needs a prn -discussed smoking cessation, options, including patch vs wellbutrin; reviewed risks/side-effects of Wellbutrin and pt would like to try it as it of course also works as an anti-depressant will order lithium level 08/02 Patient says she is feeling better; ambivalent about whether or not she is ready to discharge home.? Remains with self-harming urges but has been keeping herself from harm.? Sleeping and eating well.? Reports that Wellbutrin seems to be helping and that she is less depressed; she is hopeful it will help curb nicotine cravings.? Also discussed ECT and patient accepts that it might not be able to happen until August 11.? Later in the day, unrelated to patient, her roommate became extremely agitated and made a verbal threat and made disparaging comments towards patient.? Patient handled it well, removed herself and staff was able to intervene, changing patient's room.? Later in the day however patient felt that the unit was simply becoming too overwhelming and triggering and now counter therapeutic (acuity on the unit is indeed high) and was wondering about discharging today.? Last Pattern Grader and secondary social studies teacher discussed patient's discharge and that historically she has always had a pretty good sense when she is ready to go home, with which she agrees.? Team also discussed with her correction staff who agreed with plan for either discharge or to remain.? Patient agreed to remain for another evening and see how it goes but thinks she would probably likely discharge tomorrow. Impression: Patient is still depressed and continues to have intermittent self-harming urges however she is also close to baseline. Patient is ambivalent about whether not to remain on the unit, feeling that the acute in unit is too triggering and becoming counter therapeutic; to no fault of her own, patient has been singled out by a peer who was made threats, significantly compromising therapeutic value of remaining on the unit. Patient is very well known to the service and has had numerous psychiatric admissions; nearly every time patient is able to determine when she is feeling safe and stable enough to discharge. Last Pattern Grader and secondary social studies teacher spoke with correction staff; patient usually reaches out to staff 1st whenever she is feeling unsafe; lately however she has been calling crisis instead of reaching out to staff. But either way, continues to reach out for help, when feeling unsafe and has a long history of doing so. Although she remains with intermittent urges to self-harm as mentioned, this is chronic and a part of her baseline. If she is to discharge, she would be returning to her correction with supportive staff. Last Pattern Grader, secondary social studies teacher and correction staff agree that patient remains able to determine when she will discharge. Plan: CV 1:1 Continue home medications Continue Wellbutrin XL 150mg for smoking cessation and depression one time dose Fluconazole; pt reported yeast infection Ativan 1 mg t.i.d. p.r.n. while inpatient for excessive anxiety Scheduled ECT for August 11; will see if it can be done sooner May have Haldol IM on request for agitation Patient educated on: diagnosis, medication risk/benefits, ECT and therapeutic strategies Informed Consent: understands Reason for continued inpatient stay Substantial Risk for: stable for discharge Time Spent With Patient Time: Total time managing care of this patient today ____ minutes.
[2024-08-02 20:00] VITALS: BP 116/64; PULSE 72; RESP 14; TEMP 36.6; O2SAT 98
[2024-08-02] MEDS: traZODone HCL 100 MG TABLET 200 MG PO (20:10)
[2024-08-02] MEDS: Prazosin HCL 5 MG CAPSULE 15 MG PO (20:10)
[2024-08-02] MEDS: Zolpidem Tartrate 5 MG TABLET 10 MG PO (20:10)
[2024-08-02] MEDS: diphenhydrAMINE HCL 25 MG CAPSULE 100 MG PO (20:11)
[2024-08-02] MEDS: traZODone HCL 50 MG TABLET PO ×2 (20:11→23:56)
[2024-08-03 07:00] VITALS: BMI 38.7
[2024-08-03 08:00] VITALS: BP 120/58; PULSE 78; RESP 18; TEMP 36.6; O2SAT 97
[2024-08-03] MEDS: Fluticasone/Vilanterol 200/25 BLST.W.DEV 1 PUFF INHALE (08:07)
[2024-08-03] MEDS: Tiotropium Bromide 2.5 mcg 1 PUFF/2.5 MCG MIST.INHAL 2 PUFF INHALE (08:07)
[2024-08-03] MEDS: Lithium Carbonate 300 MG CAPSULE PO (08:08)
[2024-08-03] MEDS: DULoxetine HCl 60 MG CAPSULE.DR PO (08:08)
[2024-08-03] MEDS: buPROPion HCl XL 150 MG TAB.ER.24H PO (08:08)
[2024-08-03] MEDS: Loratadine 10 MG TABLET PO (08:08)
[2024-08-03] MEDS: Calcium + Vitamin D 250 MG TABLET PO (08:08)
[2024-08-03] MEDS: Cholecalciferol (Vitamin D3) 25 MCG TABLET PO (08:08)
[2024-08-03] MEDS: HaloperidoL 5 MG TABLET PO (08:08)
[2024-08-03] MEDS: Benztropine Mesylate 0.5 MG TABLET PO (08:08)
[2024-08-03 08:09] VITALS: BP 144/67
[2024-08-03] MEDS: Omeprazole 20 MG CAPSULE.DR PO (08:09)
[2024-08-03] MEDS: Multivitamin TABLET 1 TAB PO (08:09)
[2024-08-03] MEDS: cloNIDine HCL 0.1 MG TABLET PO (08:09)
[2024-08-03 08:55] LABS: Lithium 0.59 mmol/L (0.60-1.20)
[2024-08-03 09:03] LABS: Anion Gap 13 (12-20); Carbon Dioxide 25 mmol/L (22-29); Chloride 106 mmol/L (96-108); Potassium 4.3 mmol/L (3.3-5.1); Sodium 140 mmol/L (135-145)
[2024-08-03 09:22] LABS: TSH reflex Free T4 8.06 uIU/mL (0.32-4.0)
--- NOTE | 2024-08-03 09:26 | P.DS_ITS ---
DS: Providers Provider Date of Service: 08/03/24 Date of admission: 07/30/24 12:49 Date of discharge: 08/03/24 Primary care physician: Hafsa Holcomb NP Attending physician on admission: Maurizio Hernández Consults: 08/01/24 17:30 Consult to Hospitalist Routine Comment: Consulting Provider: [facility] Reason For Exam: risk strateffication for ECT Attending physician on discharge: Maurizio Hernández DS: Diagnosis Discharge Diagnosis (1) MDD (major depressive disorder), recurrent, severe, with psychosis: Status: Acute (2) Chronic post-traumatic stress disorder (PTSD): Status: Chronic (3) Borderline personality disorder: Status: Chronic (4) Pre-op evaluation: Status: Acute DS: Medications Discharge Medications Home Medications: Home Medications ?Medication ?Instructions ?Recorded ?Confirmed albuterol sulfate 90 mcg/actuation 2 puff inhalation QID PRN wheezing 04/30/24 07/29/24 aerosol inhaler (Ventolin HFA) benztropine 0.5 mg tablet 0.5 mg PO BID 04/30/24 07/29/24 clonidine HCl 0.1 mg tablet 0.1 mg PO TID 04/30/24 07/29/24 diphenhydramine HCl 50 mg capsule 100 mg PO BEDTIME insomnia 04/30/24 07/29/24 (Banophen) duloxetine 60 mg capsule,delayed 60 mg PO QAM 04/30/24 07/29/24 release haloperidol 5 mg tablet 5 mg PO TID PRN hallucinations 04/30/24 07/29/24 haloperidol decanoate 100 mg/mL 75 mg IM Q4W 04/30/24 07/29/24 intramuscular solution lithium carbonate 300 mg tablet 300 mg PO BID 04/30/24 07/29/24 omeprazole 20 mg capsule,delayed 20 mg PO Q OTHER DAY 04/30/24 07/29/24 release prazosin 5 mg capsule 15 mg PO BEDTIME 04/30/24 07/29/24 trazodone 100 mg tablet 200 mg PO BEDTIME insomnia 04/30/24 07/29/24 cetirizine 10 mg tablet 10 mg PO DAILY 05/17/24 07/29/24 ibuprofen 600 mg tablet 600 mg PO TID PRN arthritis 05/17/24 07/30/24 multivitamin 1 tab PO DAILY 05/17/24 07/29/24 psyllium husk 0.4 gram capsule 0.8 g PO BID 05/17/24 07/29/24 (Daily Fiber) zolpidem 10 mg tablet 10 mg PO BEDTIME insomnia 05/17/24 07/29/24 calcium 600 mg (as 1 tab PO BID 07/29/24 07/29/24 carbonate)-vitamin D3 10 mcg (400 unit) tablet cholecalciferol (vitamin D3) 25 25 mcg PO QAM 07/29/24 07/29/24 mcg (1,000 unit) tablet (Vitamin D3) fluticasone propionate 230 2 puff inhalation BID 07/29/24 07/29/24 mcg-salmeterol 21 mcg/actuation HFA inhaler (Advair HFA) umeclidinium 62.5 mcg/actuation 1 inh inhalation DAILY 07/29/24 07/29/24 blister powder for inhalation (Incruse Ellipta) Previous Rx's ?Medication ?Instructions ?Recorded lorazepam 1 mg tablet 1 mg PO TID PRN anxiety/agitation 05/22/24 #0 tabs bupropion HCl 150 mg 24 hr tablet, 150 mg PO DAILY 30 days #30 tabs 08/03/24 extended release Mental Status Exam Mental Status Exam Narrative: Pt is alert and oriented; behavior is cooperative, relatively calm, a few fleeting instances of mildly bumping head on the wall; dressed in casual attire gown with adequate grooming; numerous of scars up and down bilateral forearms from hx of superficial cutting; mood is described as a little better affect congruent, brighter, more calm; eye contact appropriate; Speech is normal rate, volume and prosody; some psychomotor retardation present but less; thought process is goal directed, logical and linear; Thought content is on worries about her father, struggles with urges to self harm; otherwise pertinent to relevant topics and without any delusional content, paranoid ideations or grandiosity; no SI though urges to self harm; no HI. No AH Patients insight and judgment are impaired but improved and pretty close to baseline; adequate. Data Data Completed and Pending Completed studies during hospitalization [Text1]: 07/29/24 07/29/24 07/30/24 21:32 23:12 14:55 WBC 6.0 RBC 3.84 L Hgb 11.5 L Hct 34.9 L MCV 90.9 MCH 29.9 MCHC 33.0 RDW 12.7 Plt Count 246 MPV 10.7 Immature Gran % (Auto) 0.3 Neut % (Auto) 62.7 Lymph % (Auto) 27.5 [place] % (Auto) 7.5 Eos % (Auto) 1.7 Baso % (Auto) 0.3 Lymph # (Auto) 1.7 [place] # (Auto) 0.5 Eos # (Auto) 0.1 Baso # (Auto) 0.0 Abs Immat Gran (auto) 0.02 Absolute Neuts (auto) 3.8 Absolute Nucleated RBC 0.000 Nucleated RBC % (auto) 0.0 Sodium 137 138 Potassium 3.6 4.2 Chloride 107 111 H Carbon Dioxide 24 21 L Anion Gap 10 L 10 L BUN 10 8 L Creatinine 0.72 0.73 Estim Creat Clear Calc 107.0 100.0 Estimated GFR > 60 > 60 Random Glucose 99 96 Calcium 8.9 9.2 Total Bilirubin 0.2 0.3 AST 19 16 ALT 9 14 Alkaline Phosphatase 47 54 Total Protein 6.4 L 6.8 Albumin 3.7 3.9 Triglycerides Cholesterol LDL Cholesterol, Calc HDL Cholesterol TSH Free T4 Urine Color Yellow Urine Appearance Clear Urine pH 6.5 Ur Specific Universal 1.010 Urine Protein Negative Urine Glucose (UA) Negative Urine Ketones Negative Urine Blood Negative Urine Nitrite Negative Ur Leukocyte Esterase Negative Urine Test NEGATIVE Urine Opiates Screen Not Detected Ur Buprenorphine Scrn Not Detected Ur Oxycodone Screen Not Detected Urine Methadone Screen Not Detected Urine Fentanyl Screen Not Detected Ur Barbiturates Screen Not Detected Ur Phencyclidine Scrn Not Detected Ur Amphetamines Screen Not Detected U Benzodiazepines Scrn Not Detected Neligh Urine Cocaine Screen Not Detected U Marijuana (THC) Screen POSITIVE H Ethyl Alcohol < 10 07/31/24 08/03/24 07:57 08:02 WBC RBC Hgb Hct MCV MCH MCHC RDW Plt Count MPV Immature Gran % (Auto) Neut % (Auto) Lymph % (Auto) [place] % (Auto) Eos % (Auto) Baso % (Auto) Lymph # (Auto) [place] # (Auto) Eos # (Auto) Baso # (Auto) Abs Immat Gran (auto) Absolute Neuts (auto) Absolute Nucleated RBC Nucleated RBC % (auto) Sodium 140 Potassium 4.3 Chloride 106 Carbon Dioxide 25 Anion Gap 13 BUN Creatinine Estim Creat Clear Calc Estimated GFR Random Glucose Calcium Total Bilirubin AST ALT Alkaline Phosphatase Total Protein Albumin Triglycerides 76 Cholesterol 156 LDL Cholesterol, Calc 91 HDL Cholesterol 50 TSH 8.06 H Free T4 Pending Urine Color Urine Appearance Urine pH Ur Specific Universal Urine Protein Urine Glucose (UA) Urine Ketones Urine Blood Urine Nitrite Ur Leukocyte Esterase Urine Test Urine Opiates Screen Ur Buprenorphine Scrn Ur Oxycodone Screen Urine Methadone Screen Urine Fentanyl Screen Ur Barbiturates Screen Ur Phencyclidine Scrn Ur Amphetamines Screen U Benzodiazepines Scrn Neligh 0.59 L Urine Cocaine Screen U Marijuana (THC) Screen Ethyl Alcohol DS: Summary Hospital Course Hospital Course: Patient 39 year old female with a past medical history significant for OA, PTSD, schizoaffective disorder, borderline personality disorder, combined COPD/asthma unspecified, GERD, obesity, consulted for ECT risk stratification. Pt is a 39 y.o. female, with hx of PTSD (extensive trauma history), and BPD, (she carries a dx of schizoaffective DO, depressive type),chronic SI, chronic self-harming urges/ behaviors, COPD/asthma and multiple inpatient admissions/ED visits who presents for SI and increased urges to self-harm in face of several psychosocial stressors, primarily her father becoming sick and hospitalized. Patient reports she was doing well enough until this past week when she got a flurry of challenging news namely her father's ulcer, needing emergent operation; patient also learned that her adopted brother had ; additionally her aunt who has significant mental health issues has been texting and calling patient saying nasty things about her family (which is not atypical) to the point where patient had to block her number. Patient said that she just started getting overwhelmed with emotion and felt she was going to attempt suicide if she did not self present. To the ED, she said she had a plan to break glass and roll around in; she started hearing auditory hallucinations to hurt herself. Patient remains with intermittent AH to harm self and urges to hit her head; still, she feels that most of this mood dysregulation is situational and she just needs a few days for it to resolve. No drug or alcohol use. 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 Hospital course: On admission pt depressed. Home medications continued. Patient says she has not had ECT recently and feels that this is part of the reason she decompensated; she asks if she can have this now. Regarding diagnosis, patient has carried a diagnosis of schizoaffective disorder, however AH always seems to be mood congruent. Thankfully her father is stabilized and is doing better 08/01 head banging off/on last night, was able to be redirected; intermittently irritable with nurse, feeling nurse inattentive. Pt however is asking for prns/IM's when feeling unsafe. Discussed with pt who says this episode is heavier than the others; will continue trying to resist self-harm and letting staff know when she needs a prn -discussed smoking cessation, options, including patch vs wellbutrin; reviewed risks/side-effects of Wellbutrin and pt would like to try it as it of course also works as an anti-depressant will order lithium level 08/02 Patient says she is feeling better; ambivalent about whether or not she is ready to discharge home.? Remains with self-harming urges but has been keeping herself from harm.? Sleeping and eating well.? Reports that Wellbutrin seems to be helping and that she is less depressed; she is hopeful it will help curb nicotine cravings.? Also discussed ECT and patient accepts that it might not be able to happen until August 11.? Later in the day, unrelated to patient, her roommate became extremely agitated and made a verbal threat and made disparaging comments towards patient.? Patient handled it well, removed herself and staff was able to intervene, changing patient's room.? Later in the day however patient felt that the unit was simply becoming too overwhelming and triggering and now counter therapeutic (acuity on the unit is indeed high) and was wondering about discharging today.? Recovery Assistant and group social worker discussed ahmet mercedes's discharge and that historically she has always had a pretty good sense when she is ready to go home, with which she agrees.? Team also discussed with her skilled nursing staff who agreed with plan for either discharge or to remain.? Patient agreed to remain for another evening and see how it goes but thinks she would probably likely discharge tomorrow. Impression: Patient is still depressed and continues to have intermittent self-harming urges however she is also close to baseline. Patient is ambivalent about whether not to remain on the unit, feeling that the acute in unit is too triggering and becoming counter therapeutic; to no fault of her own, patient has been singled out by a peer who was made threats, significantly compromising therapeutic value of remaining on the unit. Patient is very well known to the service and has had numerous psychiatric admissions; nearly every time patient is able to determine when she is feeling safe and stable enough to discharge. Recovery Assistant and s ocial worker spoke with skilled nursing staff; patient usually reaches out to staff 1st whenever she is feeling unsafe; lately however she has been calling crisis instead of reaching out to staff. But either way, continues to reach out for help, when feeling unsafe and has a long history of doing so. Although she remains with intermittent urges to self-harm as mentioned, this is chronic and a part of her baseline. Patient decided she would like to discharge; she is returning to her skilled nursing with supportive staff. Recovery Assistant, group social worker and skilled nursing staff agree that patient remains able to determine when she will discharge. She is not in imminent risk for harm to self or others and request for discharge honored. Time spent discussing smoking cessation with patient: more than 10 minutes Status at Discharge Functional status at discharge: independent ambulation Overall status at discharge: patient is progressing back to baseline Time Spent with Patient Time attestation: Total time managing care of this patient today _45___ minutes. Specific discharge activities: Met with patient; discussed with team; charting, prescriptions Discharge Plan Discharge Anticipated Discharge Date/Time: 08/03/24 10:30 Patient Disposition: Home, Self-Care Discharge Diagnosis: MDD, recurrent, severe with psychotic symptoms, in partial remission; PTSD, acute on chronic Referrals: Hafsa Holcomb NP [Primary Care Provider] - 1 Week (Office will call PT with follow up appointment ) Discharge Medications: New bupropion HCl 150 mg Tablet Extended Release 24 Hr 150 mg PO DAILY 30 Days Qty: 30 0RF Continued clonidine HCl 0.1 mg tablet 0.1 mg PO TID benztropine 0.5 mg tablet 0.5 mg PO BID haloperidol 5 mg tablet 5 mg PO TID PRN (Reason: hallucinations) diphenhydramine HCl [Banophen] 50 mg capsule 100 mg PO BEDTIME haloperidol decanoate 100 mg/mL solution 75 mg IM Q4W prazosin 5 mg capsule 15 mg PO BEDTIME trazodone 100 mg tablet 200 mg PO BEDTIME omeprazole 20 mg capsule,delayed release(DR/EC) 20 mg PO Q OTHER DAY albuterol sulfate [Ventolin HFA] 90 mcg/actuation HFA aerosol inhaler 2 puff INHALATION QID PRN (Reason: wheezing) lithium carbonate 300 mg tablet 300 mg PO BID duloxetine 60 mg capsule,delayed release(DR/EC) 60 mg PO QAM fluticasone propion-salmeterol [Advair HFA] 230-21 mcg/actuation HFA aerosol inhaler 2 puff INHALATION BID cholecalciferol (vitamin D3) [Vitamin D3] 25 mcg (1,000 unit) tablet 25 mcg PO QAM calcium carbonate-vitamin D3 600 mg-10 mcg (400 unit) tablet 1 tab PO BID Incruse Ellipta 62.5 mcg/actuation blister with device 1 inh inhalation DAILY psyllium husk [Daily Fiber] 0.4 gram capsule 0.8 g PO BID ibuprofen 600 mg tablet 600 mg PO TID PRN (Reason: arthritis) zolpidem 10 mg tablet 10 mg PO BEDTIME multivitamin Tablet 1 tab PO DAILY cetirizine 10 mg tablet 10 mg PO DAILY lorazepam 1 mg Tablet 1 mg PO TID PRN (Reason: anxiety/agitation) Qty: 0 0RF Discharge Orders: Discharge Order (Routine); Ordered 08/03/24 Ordered By: Maurizio Hernández Diet: Regular diet Activity on Discharge: As tolerated Stand Alone Forms: Patient Portal Discharge page, Community Support Print Language: Turkmen Care Plan Goals: Maintain mood and safe behaviors Take medications as prescribed Reduce number of cigarettes per day Practice coping skills Continue with outpatient providers and reach out to them as needed Health Concerns: Mood stability and behaviors COPD/asthma Chronic right knee pain Plan of Treatment: Follow up with your PCP, psychiatric provider and other outpatient providers regarding above concerns Take medications as prescribed Assessment: Risk assessment at time of discharge:? Patient was interviewed prior to discharge and found to be fully oriented and without any SI or HI. Patient has improved insight and judgment and wants to continue treatment. Patient is not in imminent risk of harm to self or others and has a safety plan that includes presenting to the closest ER or calling 911 if feeling unsafe.
[2024-08-03 09:53] LABS: Free T4 (Free Thyroxine) 1.26 ng/dL (0.71-1.85)
== END 2024-08-03 10:32 | disposition home or self-care (01) | DRG 751 ==
LOC: HO.ED 21:17 → HO.PM5 07-30 13:49
PROVIDERS: Admitting Provider Psychiatry & Neurology Psychiatry; Emergency Provider Emergency Medicine; PCP Nurse Practitioner Family; Visit Provider Psychiatry & Neurology Psychiatry
DX: F33.3 Major depressive disorder, recurrent, severe with psychotic symptoms (principal); R45.851 Suicidal ideations; F60.3 Borderline personality disorder; F43.12 Post-traumatic stress disorder, chronic; F43.11 Post-traumatic stress disorder, acute; J44.9 Chronic obstructive pulmonary disease, unspecified; Z79.51 Long term (current) use of inhaled steroids; Z87.891 Personal history of nicotine dependence; Z79.899 Other long term (current) drug therapy
CPT/HCPCS: 36415; 80051; 80053; 80061; 80178; 80307; 81003; 81025; 84439; 84443; 85025; 99285; J1630; J2060; J2359

== ENCOUNTER → 2024-07-30 12:49 | Outpatient (BNV) | payer OTHER, SELFPAY | PROVIDERS: Admitting Provider Psychiatry & Neurology Psychiatry; Emergency Provider Emergency Medicine; PCP Nurse Practitioner Family; Visit Provider Physician Assistant | DX: Z01.818 Encounter for other preprocedural examination (principal) | CPT/HCPCS: 99499 ==

== ENCOUNTER → 2024-07-30 12:49 | Outpatient (BNV) | payer OTHER, SELFPAY | PROVIDERS: Admitting Provider Psychiatry & Neurology Psychiatry; Emergency Provider Emergency Medicine; PCP Nurse Practitioner Family; Visit Provider Psychiatry & Neurology Psychiatry | DX: F60.3 Borderline personality disorder (principal); F43.12 Post-traumatic stress disorder, chronic | CPT/HCPCS: 99232 ==

== ENCOUNTER 2024-08-07 06:01 | Day surgery (SDC) | payer OTHER, SELFPAY ==
[2024-08-07 06:55] VITALS: BP 126/61; PULSE 86; RESP 16; TEMP 36.3; O2SAT 100; BMI 37.3
--- NOTE | 2024-08-07 07:04 | P.HPSUR_ITS ---
Pre-Procedural Eval Section A - 24 Hr Update-Section A only Date of Service: 08/07/24 The patient is an INPATIENT: No Changes since office visit: No Cold of Flu in the past 2 weeks, No New Medical Problems, No Changes in Medication and No Patient answered all questions The patient has been examined within 24 hours of the surgical procedure. The History & Physical has been completed within 30 days and I have reviewed it.: Yes Section B - Complete if H&P > 30 days Chief Complaint: depression Details of Present Illness: The patient reported more dysphoria since her father khushbu , depressed but able to contract for safety. Relevant Family History (Specify if Yes): No Relevant Social History: None Present Medications: see Short Stay Collaborative assessment Medical History: No relevant PMH History of Previous Operations: No relevant previous surgery Allergies: Allergies Allergy/AdvReac Type Severity Reaction Status Date / Time carbamazepine [From TEGRETOL] AdvReac Mild Nausea and Verified 07/29/24 20:52 Vomiting topiramate [From Topamax] AdvReac Mild Nausea and Verified 07/29/24 20:52 Vomiting Review of Systems Sugical H&P ROS: Negative: Constitution, Cardiovascular, Respiratory, Neurological, Psychiatric, Hem-Onc, Allergic/Immunologic, Gastrointestinal, Genitourinary, Musculoskeletal, Integumentary, Endocrine and Eyes/Ears/Nos e/Throat Exam Surgical H&P Exam: Normal: HEENT, Normal: Heart, Normal: Lungs, Normal: Extremities, Normal: Abdomen, Normal: Skin and Normal: Neurological Plan Diagnosis/Plan: Unchanged I have reviewed the history and physical and performed a pertinent physical examination on my patient. No changes have occurred unless specified. Time Spent With Patient Time: Total time managing care of this patient today _20___ minutes.
[2024-08-07] MEDS: Lactated Ringers 1,000 ML 100 ML IVCONT (07:08)
--- NOTE | 2024-08-07 07:46 | HO.ECTPROC ---
ECT Procedure Note Diagnosis/Treatment Date of Service: 08/07/24 Diagnosis: Schizoaffective Disorder Previous ECT Date: 07/17/24 Treatment: Series Interval Clinical Notes: The patient had been more tearful and sad since his adoptive father last week, she was in the hospital last week. She reqeusted more frequent ECT for depression. No side effects with previuus ECT. ECT done as usual, no complications, woke up well. Time: Total time managing care of this patient today __30__ minutes. ECT Settings Device: THYMATRON DGx Electrode Placement: Bitemporal Program/Pulse Width: 0.50 Energy Percent: 100 Seizure Duration By EEG (in seconds): 29 By Motor Observation (in seconds): 26 Medications Administration General Anesthetic: Etomidate (14) Muscle Relaxant: Succinylcholine (100) Ancillary Medications Anti-emetics: Zofran - Pre ECT Airway Management Airway Management: Bag Mask Ventilation Treatment Recommendations No Changes Recommended: No change Pt Tolerated Procedure w/o Issue: Yes
[2024-08-07 07:54] VITALS: BP 154/89; PULSE 82; RESP 18; TEMP 36.8; O2SAT 96
[2024-08-07 07:55] VITALS: BP 121/70; PULSE 98; RESP 18; O2SAT 96
[2024-08-07 08:00] VITALS: BP 154/83; PULSE 98; RESP 18; O2SAT 96
[2024-08-07 08:05] VITALS: BP 154/89; PULSE 92; RESP 18; O2SAT 96
[2024-08-07 08:20] VITALS: BP 150/80; PULSE 94; RESP 18; TEMP 36.8; O2SAT 96
--- NOTE | 2024-08-07 08:24 | HO.ANESPROP2 ---
FORM[facility]LY [facility], LATER [facility] Active Problems Active Problems: All Active Problems MDD (major depressive disorder), recurrent, severe, with psychosis (Acute) Pre-op evaluation (Acute) Acute anxiety (Acute) Depression (Acute) Osteoarthritis of right knee (Acute) Chronic post-traumatic stress disorder (PTSD) (Chronic) Schizoaffective disorder, depressive type (Chronic) Borderline personality disorder (Chronic) Auditory hallucinations (Acute) Port-A-Cath in place (Acute) Intentional self-harm (Acute) COPD (chronic obstructive pulmonary disease) (Acute) Asthma (Acute) Adjustment disorder (Acute) Anxiety (Acute) Injury of ligament of right knee (Acute) Sprain of anterior cruciate ligament of right knee (Acute) Hernia (Chronic) Increased BMI (Acute) GERD (gastroesophageal reflux disease) (Acute) Past Medical History Medical History (Updated 08/03/24 @ 09:10 by Maurizio Hernández MD) MDD (major depressive disorder), recurrent, severe, with psychosis Port-A-Cath in place History of electroconvulsive therapy COVID-19 COVID-19 Sprain of left foot Chronic post-traumatic stress disorder (PTSD) COPD (chronic obstructive pulmonary disease) Increased BMI GERD (gastroesophageal reflux disease) Recurrent major depression-severe Acute post-traumatic stress disorder Injury, self-inflicted Suicidal ideation Self-harming behavior Intentional self-harm Suicidal ideation Borderline personality disorder Schizoaffective disorder Adjustment disorder Asthma Depression Anxiety PTSD (post-traumatic stress disorder) Family History Family History Mother Brain cancer Other No family history of cardiac disease Family history of problems with anesthesia: No Surgical History History of Problems with Anesthesia: No Social History Social History Household Members: Other Household Members Other:: [facility] staff & peers Housing: Other Housing Other:: Correction Do you presently have visiting nurse or other home services: No Unable to assess alcohol history related to: Unable to respond Alcohol intake: never Comment: 1:1 sitter Patient Tobacco Use Status: Former Tobacco user Tobacco use type: Cigarette Cigarette Packs Per Day: 0.5 Cigarettes Per Day: 4 Years Smoked: 20 e-Cigarette/Vaping Use: Never Used Second Hand Smoke Exposure: No Substance Use Type: Marijuana Advance Directives: No Advance Directives Information Provided: Yes service: No Current occupation: rt handed Sexual orientation: Straight/Heterosexual Meds Allergies Allergy/AdvReac Type Severity Reaction Status Date / Time carbamazepine [From TEGRETOL] AdvReac Mild Nausea and Verified 07/29/24 20:52 Vomiting topiramate [From Topamax] AdvReac Mild Nausea and Verified 07/29/24 20:52 Vomiting Active Medications: Current Medications Lactated Ringer's (Lr) 1,000 mls @ 100 mls/hr IVCONT .Q10H SULEIMAN Last Admin: 08/07/24 07:08 Dose: 100 mls/hr Home Medications ?Medication ?Instructions ?Recorded ?Confirmed ?Last Taken ?Type albuterol sulfate 90 mcg/actuation 2 puff inhalation QID PRN wheezing 04/30/24 07/29/24 05/29/24 07:00 History aerosol inhaler (Ventolin HFA) benztropine 0.5 mg tablet 0.5 mg PO BID 04/30/24 07/29/24 07/29/24 20:00 History clonidine HCl 0.1 mg tablet 0.1 mg PO TID 04/30/24 07/29/24 07/29/24 History diphenhydramine HCl 50 mg capsule 100 mg PO BEDTIME insomnia 04/30/24 07/29/24 07/29/24 History (Banophen) duloxetine 60 mg capsule,delayed 60 mg PO QAM 04/30/24 07/29/24 07/29/24 History release haloperidol 5 mg tablet 5 mg PO TID PRN hallucinations 04/30/24 07/29/24 07/29/24 History haloperidol decanoate 100 mg/mL 75 mg IM Q4W 04/30/24 07/29/24 07/29/24 History intramuscular solution lithium carbonate 300 mg tablet 300 mg PO BID 04/30/24 07/29/24 07/29/24 History omeprazole 20 mg capsule,delayed 20 mg PO Q OTHER DAY 04/30/24 07/29/24 07/29/24 History release prazosin 5 mg capsule 15 mg PO BEDTIME 04/30/24 07/29/24 07/29/24 20:00 History trazodone 100 mg tablet 200 mg PO BEDTIME insomnia 04/30/24 07/29/24 07/29/24 20:00 History cetirizine 10 mg tablet 10 mg PO DAILY 05/17/24 07/29/24 07/29/24 History ibuprofen 600 mg tablet 600 mg PO TID PRN arthritis 05/17/24 07/30/24 05/29/24 07:00 History multivitamin 1 tab PO DAILY 05/17/24 07/29/24 07/29/24 History psyllium husk 0.4 gram capsule 0.8 g PO BID 05/17/24 07/29/24 07/29/24 History (Daily Fiber) zolpidem 10 mg tablet 10 mg PO BEDTIME insomnia 05/17/24 07/29/24 07/29/24 History calcium 600 mg (as 1 tab PO BID 07/29/24 07/29/24 Unknown History carbonate)-vitamin D3 10 mcg (400 unit) tablet cholecalciferol (vitamin D3) 25 25 mcg PO QAM 07/29/24 07/29/24 07/29/24 History mcg (1,000 unit) tablet (Vitamin D3) fluticasone propionate 230 2 puff inhalation BID 07/29/24 07/29/24 07/29/24 History mcg-salmeterol 21 mcg/actuation HFA inhaler (Advair HFA) umeclidinium 62.5 mcg/actuation 1 inh inhalation DAILY 07/29/24 07/29/24 Unknown History blister powder for inhalation (Incruse Ellipta) Exam Height,Weight and Vital Signs: Height 5 ft Weight 86.636 kg Last Vital Signs Temp 98.2 F 08/07/24 08:20 Pulse 94 08/07/24 08:20 Resp 18 08/07/24 08:20 BP 150/80 H 08/07/24 08:20 Pulse Ox 96 08/07/24 08:20 O2 Del Method Room Air 08/07/24 08:20 Airway Mallampati Class: III TM Dist: >3cm Neck ROM: Full Assessment and Plan Assessment Anesthesia Assessment: Anesthesia Plan Discussed and Chart Reviewed Final Anesthetic Review Family History of Problems with Anesthesia: No History of Problems with Anesthesia: No NPO: Yes ASA Class: III Final Preanesthetic Review: No Changes in Pt Med Stat, Meds/Allgs Chart Reviewed, Consent Obtained/Reviewed, Anes Risks/Benef Reviewed and DNR Form (If Appl.) Patient Risk: Intermediate Procedure Risk: Low Anesthetic Plan Anesthetic Plan: GA Disposition: Standard PACU
== END 2024-08-07 09:11 | disposition home or self-care (01) ==
PROVIDERS: PCP Nurse Practitioner Family; Visit Provider Psychiatry & Neurology Psychiatry
PROC: (CPT 90870; principal; 2024-08-07 08:30)
DX: F25.9 Schizoaffective disorder, unspecified (principal); F43.29 Adjustment disorder with other symptoms; Z63.4 Disappearance and death of family member; F60.3 Borderline personality disorder; F43.10 Post-traumatic stress disorder, unspecified; J44.9 Chronic obstructive pulmonary disease, unspecified; Z79.1 Long term (current) use of non-steroidal anti-inflammatories (NSAID); Z79.51 Long term (current) use of inhaled steroids; Z79.899 Other long term (current) drug therapy; Z88.8 Allergy status to other drugs, medicaments and biological substances; Z87.891 Personal history of nicotine dependence
CPT/HCPCS: 90870; J0330; J2405

== ENCOUNTER → 2024-08-07 06:01 | Outpatient (BNV) | payer OTHER, SELFPAY | PROVIDERS: PCP Nurse Practitioner Family; Visit Provider Psychiatry & Neurology Psychiatry | DX: F33.3 Major depressive disorder, recurrent, severe with psychotic symptoms (principal) | CPT/HCPCS: 90870 ==

== ENCOUNTER 2024-08-11 05:55 | Day surgery (SDC) | payer OTHER, SELFPAY ==
[2024-08-11] VITALS (7 sets, daily range): BP systolic 102–134; BP diastolic 50–86; PULSE 79–86; RESP 16–17; TEMP 36.8–37; O2SAT 94–96; BMI 40.4
[2024-08-11] MEDS: Lactated Ringers 1,000 ML 100 ML IVCONT (06:44)
--- NOTE | 2024-08-11 07:22 | MHC.SHP ---
Pre-Procedural Eval Section A - 24 Hr Update-Section A only Date of Service: 08/11/24 The patient is an INPATIENT: No Section B - Complete if H&P > 30 days Chief Complaint: depression Details of Present Illness: recurrent dep recent of adopt father no si Present Medications: see Short Stay Collaborative assessment Allergies: Allergies Allergy/AdvReac Type Severity Reaction Status Date / Time carbamazepine [From TEGRETOL] AdvReac Mild Nausea and Verified 07/29/24 20:52 Vomiting topiramate [From Topamax] AdvReac Mild Nausea and Verified 07/29/24 20:52 Vomiting Review of Systems Sugical H&P ROS: Negative: Cardiovascular, Respiratory and Neurological and Yes, Specify: Psychiatric (some anxiety dep sx no si) Exam Surgical H&P Exam: Normal: Heart, Normal: Lungs (clear) and Normal: Neurological Plan Diagnosis/Plan: Unchanged I have reviewed the history and physical and performed a pertinent physical examination on my patient. No changes have occurred unless specified. Time Spent With Patient Time: Total time managing care of this patient today ____ minutes.
--- NOTE | 2024-08-11 07:40 | HO.ECTPROC ---
ECT Procedure Note Diagnosis/Treatment Date of Service: 08/14/24 Diagnosis: Major Depressive Disorder and Other (ptsd) Previous ECT Date: 07/17/24 Treatment: Maintenance and Series Interval Clinical Notes: The patient had been more tearful and sad since his adoptive father last week, she was in the hospital last week. She reqeusted more frequent ECT for depression. No side effects with previuus ECT. ECT done as usual, no complications, woke up well. Time: Total time managing care of this patient today ____ minutes. ECT Settings Device: THYMATRON DGx Electrode Placement: Bitemporal Program/Pulse Width: 0.50 Energy Percent: 100 Seizure Duration By EEG (in seconds): 17 Medications Administration General Anesthetic: Etomidate (14) Muscle Relaxant: Succinylcholine (100) Ancillary Medications Anti-emetics: Zofran - Pre ECT Miscillaneous Medications: Propofol (30) Airway Management Airway Management: Bag Mask Ventilation Treatment Recommendations No Changes Recommended: No change Pt Tolerated Procedure w/o Issue: Yes
--- NOTE | 2024-08-11 09:02 | HO.ANESPROP2 ---
[facility] Active Problems Active Problems: All Active Problems MDD (major depressive disorder), recurrent, severe, with psychosis (Acute) Depression (Acute) Osteoarthritis of right knee (Acute) Chronic post-traumatic stress disorder (PTSD) (Chronic) Schizoaffective disorder, depressive type (Chronic) Borderline personality disorder (Chronic) Auditory hallucinations (Acute) Port-A-Cath in place (Acute) Intentional self-harm (Acute) COPD (chronic obstructive pulmonary disease) (Acute) Asthma (Acute) Adjustment disorder (Acute) Anxiety (Acute) Injury of ligament of right knee (Acute) Sprain of anterior cruciate ligament of right knee (Acute) Hernia (Chronic) Increased BMI (Acute) GERD (gastroesophageal reflux disease) (Acute) Past Medical History Medical History Pre-op evaluation MDD (major depressive disorder), recurrent, severe, with psychosis Port-A-Cath in place History of electroconvulsive therapy COVID-19 COVID-19 Sprain of left foot Chronic post-traumatic stress disorder (PTSD) COPD (chronic obstructive pulmonary disease) Increased BMI GERD (gastroesophageal reflux disease) Recurrent major depression-severe Acute post-traumatic stress disorder Injury, self-inflicted Suicidal ideation Self-harming behavior Intentional self-harm Suicidal ideation Borderline personality disorder Schizoaffective disorder Adjustment disorder Asthma Depression Anxiety PTSD (post-traumatic stress disorder) Functional capacity: independent ambulation Patient : No Family History Family History Mother Brain cancer Other No family history of cardiac disease Family history of problems with anesthesia: No Surgical History History of Problems with Anesthesia: No Social History Social History Household Members: Other Household Members Other:: halfway staff & peers Housing: Other Housing Other:: Detention Do you presently have visiting nurse or other home services: No Unable to assess alcohol history related to: Unable to respond Alcohol intake: never Patient Tobacco Use Status: Former Tobacco user Tobacco use type: Cigarette Cigarette Packs Per Day: 0.5 Cigarettes Per Day: 4 Years Smoked: 20 e-Cigarette/Vaping Use: Never Used Second Hand Smoke Exposure: No Substance Use Type: Marijuana service: No Current occupation: rt handed Sexual orientation: Straight/Heterosexual Meds Allergies Allergy/AdvReac Type Severity Reaction Status Date / Time carbamazepine [From TEGRETOL] AdvReac Mild Nausea and Verified 07/29/24 20:52 Vomiting topiramate [From Topamax] AdvReac Mild Nausea and Verified 07/29/24 20:52 Vomiting Active Medications: Current Medications Lactated Ringer's (Lr) 1,000 mls @ 100 mls/hr IVCONT .Q10H SULEIMAN Last Infusion: 08/11/24 08:40 Dose: Infused Home Medications ?Medication ?Instructions ?Recorded ?Confirmed ?Last Taken ?Type albuterol sulfate 90 mcg/actuation 2 puff inhalation QID PRN wheezing 04/30/24 07/29/24 05/29/24 07:00 History aerosol inhaler (Ventolin HFA) benztropine 0.5 mg tablet 0.5 mg PO BID 04/30/24 07/29/24 07/29/24 20:00 History clonidine HCl 0.1 mg tablet 0.1 mg PO TID 04/30/24 07/29/24 07/29/24 History diphenhydramine HCl 50 mg capsule 100 mg PO BEDTIME insomnia 04/30/24 07/29/24 07/29/24 History (Banophen) duloxetine 60 mg capsule,delayed 60 mg PO QAM 04/30/24 07/29/24 07/29/24 History release haloperidol 5 mg tablet 5 mg PO TID PRN hallucinations 04/30/24 07/29/24 07/29/24 History haloperidol decanoate 100 mg/mL 75 mg IM Q4W 04/30/24 07/29/24 07/29/24 History intramuscular solution lithium carbonate 300 mg tablet 300 mg PO BID 04/30/24 07/29/24 07/29/24 History omeprazole 20 mg capsule,delayed 20 mg PO Q OTHER DAY 04/30/24 07/29/24 07/29/24 History release prazosin 5 mg capsule 15 mg PO BEDTIME 04/30/24 07/29/24 07/29/24 20:00 History trazodone 100 mg tablet 200 mg PO BEDTIME insomnia 04/30/24 07/29/24 07/29/24 20:00 History cetirizine 10 mg tablet 10 mg PO DAILY 05/17/24 07/29/24 07/29/24 History ibuprofen 600 mg tablet 600 mg PO TID PRN arthritis 05/17/24 07/30/24 05/29/24 07:00 History multivitamin 1 tab PO DAILY 05/17/24 07/29/24 07/29/24 History psyllium husk 0.4 gram capsule 0.8 g PO BID 05/17/24 07/29/24 07/29/24 History (Daily Fiber) zolpidem 10 mg tablet 10 mg PO BEDTIME insomnia 05/17/24 07/29/24 07/29/24 History calcium 600 mg (as 1 tab PO BID 07/29/24 07/29/24 Unknown History carbonate)-vitamin D3 10 mcg (400 unit) tablet cholecalciferol (vitamin D3) 25 25 mcg PO QAM 07/29/24 07/29/24 07/29/24 History mcg (1,000 unit) tablet (Vitamin D3) fluticasone propionate 230 2 puff inhalation BID 07/29/24 07/29/24 07/29/24 History mcg-salmeterol 21 mcg/actuation HFA inhaler (Advair HFA) umeclidinium 62.5 mcg/actuation 1 inh inhalation DAILY 07/29/24 07/29/24 Unknown History blister powder for inhalation (Incruse Ellipta) Exam Height,Weight and Vital Signs: Height 4 ft 11 in Weight 90.718 kg Last Vital Signs Temp 98.2 F 08/11/24 08:49 Pulse 80 08/11/24 08:49 Resp 16 08/11/24 08:49 BP 123/81 08/11/24 08:49 Pulse Ox 96 08/11/24 08:49 O2 Del Method Room Air 08/11/24 08:49 O2 Flow Rate 2 08/11/24 07:59 Airway Mallampati Class: II TM Dist: >3cm Neck ROM: Full Heart: RRR Lungs: CTA Assessment and Plan Assessment Anesthesia Assessment: Anesthesia Plan Discussed and Chart Reviewed Final Anesthetic Review Family History of Problems with Anesthesia: No History of Problems with Anesthesia: No NPO: Yes ASA Class: III Final Preanesthetic Review: Meds/Allgs Chart Reviewed, Consent Obtained/Reviewed and Anes Risks/Benef Reviewed Patient Risk: Intermediate Procedure Risk: Low Anesthetic Plan Anesthetic Plan: GA Disposition: Standard PACU
--- NOTE | 2024-08-11 09:03 | HO.POSTANES ---
Post Anesthesia Evaluation Post Anesthesia Evaluation Date of Service: 08/11/24 Vital Signs: Vital Signs Temp Pulse Resp BP Pulse Ox O2 Del Method O2 Flow Rate 08/11/24 08:49 98.2 F 80 16 123/81 96 Room Air 08/11/24 08:29 86 16 102/50 L 95 Room Air 08/11/24 08:14 79 17 109/64 94 Room Air 08/11/24 07:59 83 16 125/68 96 Nasal Cannula with ETCO2 2 08/11/24 07:54 80 16 118/72 96 Nasal Cannula with ETCO2 2 08/11/24 07:49 83 16 134/73 96 Nasal Cannula with ETCO2 2 08/11/24 07:44 98.6 F 84 16 119/86 96 Nasal Cannula with ETCO2 2 Anesthesia: General Mental Status: Awake Pain Control: Satisfactory Nausea/Vomiting: None Hydration: Adequate Anesthesia-Related Issues: No Anes. Related Issues
--- NOTE | 2024-08-14 14:43 | MHC.CARE ---
Lynsey from [facility] called to report Pt would be arriving on a Section 12 from her in [place]. Pt's father and she has been tearful and focused on self harming. Pt stated she doesn't feel safe at home. Pt did not endorse SI. Disposition from [facility] will be [facility]. [facility] to send assessment when completed.
== END 2024-08-11 09:04 | disposition home or self-care (01) ==
PROVIDERS: PCP Nurse Practitioner Family; Visit Provider Psychiatry & Neurology Psychiatry
PROC: (CPT 90870; principal; 2024-08-11 08:00)
DX: F33.2 Major depressive disorder, recurrent severe without psychotic features (principal); F43.29 Adjustment disorder with other symptoms; Z63.4 Disappearance and death of family member; F43.10 Post-traumatic stress disorder, unspecified; F60.3 Borderline personality disorder; J44.9 Chronic obstructive pulmonary disease, unspecified; J45.40 Moderate persistent asthma, uncomplicated; Z79.1 Long term (current) use of non-steroidal anti-inflammatories (NSAID); Z79.51 Long term (current) use of inhaled steroids; Z79.899 Other long term (current) drug therapy; Z88.8 Allergy status to other drugs, medicaments and biological substances; Z87.891 Personal history of nicotine dependence
CPT/HCPCS: 90870; J0330; J1642; J2405; J2704

== ENCOUNTER → 2024-08-11 05:55 | Outpatient (BNV) | payer OTHER, SELFPAY | PROVIDERS: PCP Nurse Practitioner Family; Visit Provider Psychiatry & Neurology Psychiatry | DX: F33.2 Major depressive disorder, recurrent severe without psychotic features (principal) | CPT/HCPCS: 90870 ==

== ENCOUNTER 2024-08-14 15:02 | Emergency (ER) | payer OTHER, SELFPAY ==
[2024-08-14 15:29] VITALS: BP 127/55; BP 140/86; PULSE 89; PULSE 98; RESP 20; TEMP 36.6; O2SAT 96; O2SAT 98; BMI 38.6
--- NOTE | 2024-08-14 15:30 | ED.PSYCH ---
HPI - Psych General Chief Complaint: Psychiatric Symptoms Stated Complaint: S12,PLANS OF SELF HARM,GREIF/FATHER RECENTLY Source: patient and EMS Mode of arrival: EMS Limitations: no limitations History of Present Illness ED Provider: GABRIEL HPI Narrative: 39 yo female with PMH of PTSD, schizoaffective disorder, asthma, adjustment disorder, GERD here with c/o depression and SI not doing well since her father last week. She denies any self harm or ingestions. Feels like her outpatient support is not cutting it and she can't cope. On arrival very tearful and upset. MD complaint: suicidal ideation and feels depressed Onset (ago): week(s) (1) Duration: getting worse History of same: Yes Relieving factors: none Exacerbating factors: other Context: significant life stressor Associated psychiatric symptoms: depression and suicidal ideation Associated symptoms: denies other symptoms Treatments prior to arrival: none If self harm: admits thoughts of self harm and has plan Related Data Home Medications ?Medication ?Instructions ?Recorded ?Confirmed albuterol sulfate 90 mcg/actuation 2 puff inhalation QID PRN wheezing 04/30/24 07/29/24 aerosol inhaler (Ventolin HFA) benztropine 0.5 mg tablet 0.5 mg PO BID 04/30/24 07/29/24 clonidine HCl 0.1 mg tablet 0.1 mg PO TID 04/30/24 07/29/24 diphenhydramine HCl 50 mg capsule 100 mg PO BEDTIME insomnia 04/30/24 07/29/24 (Banophen) duloxetine 60 mg capsule,delayed 60 mg PO QAM 04/30/24 07/29/24 release haloperidol 5 mg tablet 5 mg PO TID PRN hallucinations 04/30/24 07/29/24 haloperidol decanoate 100 mg/mL 75 mg IM Q4W 04/30/24 07/29/24 intramuscular solution lithium carbonate 300 mg tablet 300 mg PO BID 04/30/24 07/29/24 omeprazole 20 mg capsule,delayed 20 mg PO Q OTHER DAY 04/30/24 07/29/24 release prazosin 5 mg capsule 15 mg PO BEDTIME 04/30/24 07/29/24 trazodone 100 mg tablet 200 mg PO BEDTIME insomnia 04/30/24 07/29/24 cetirizine 10 mg tablet 10 mg PO DAILY 05/17/24 07/29/24 ibuprofen 600 mg tablet 600 mg PO TID PRN arthritis 05/17/24 07/30/24 multivitamin 1 tab PO DAILY 05/17/24 07/29/24 psyllium husk 0.4 gram capsule 0.8 g PO BID 05/17/24 07/29/24 (Daily Fiber) zolpidem 10 mg tablet 10 mg PO BEDTIME insomnia 05/17/24 07/29/24 calcium 600 mg (as 1 tab PO BID 07/29/24 07/29/24 carbonate)-vitamin D3 10 mcg (400 unit) tablet cholecalciferol (vitamin D3) 25 25 mcg PO QAM 07/29/24 07/29/24 mcg (1,000 unit) tablet (Vitamin D3) fluticasone propionate 230 2 puff inhalation BID 07/29/24 07/29/24 mcg-salmeterol 21 mcg/actuation HFA inhaler (Advair HFA) umeclidinium 62.5 mcg/actuation 1 inh inhalation DAILY 07/29/24 07/29/24 blister powder for inhalation (Incruse Ellipta) Previous Rx's ?Medication ?Instructions ?Recorded lorazepam 1 mg tablet 1 mg PO TID PRN anxiety/agitation 05/22/24 #0 tabs bupropion HCl 150 mg 24 hr tablet, 150 mg PO DAILY 30 days #30 tabs 08/03/24 extended release Allergies Allergy/AdvReac Type Severity Reaction Status Date / Time carbamazepine [From TEGRETOL] AdvReac Mild Nausea and Verified 08/14/24 15:30 Vomiting topiramate [From Topamax] AdvReac Mild Nausea and Verified 08/14/24 15:30 Vomiting cheese AdvReac Nausea and Verified 08/14/24 15:50 Vomiting Review of Systems Review of Systems: Constitutional : No Fever, No Chills ENT/Mouth : No Ear Pain, No Nasal Congestion, No sore throat Eyes: No Eye Pain, No Swelling, No Redness Cardiovascular : No Chest Pain, No SOB Respiratory : No Cough, No Sputum, No Dyspnea Gastrointestinal : No Nausea, No Vomiting, No Diarrhea, No Hematochezia, No Melena Genitourinary : No Dysuria, No Urinary Frequency, No Hematuria Musculoskeletal : No Myalgias Skin : No Skin Lesions, No rash Neuro : No Weakness, No Numbness, No Paresthesias, No Dizziness, No Headache Psych : positive Anxiety, positive Depression, positive SI no HI All other systems reviewed and are negative [facility] Past Medical History Attestation statement: The following information was validated with the patient. Source: old records reviewed Medical History Pre-op evaluation MDD (major depressive disorder), recurrent, severe, with psychosis Port-A-Cath in place History of electroconvulsive therapy COVID-19 COVID-19 Sprain of left foot Chronic post-traumatic stress disorder (PTSD) COPD (chronic obstructive pulmonary disease) Increased BMI GERD (gastroesophageal reflux disease) Recurrent major depression-severe Acute post-traumatic stress disorder Injury, self-inflicted Suicidal ideation Self-harming behavior Intentional self-harm Suicidal ideation Borderline personality disorder Schizoaffective disorder Adjustment disorder Asthma Depression Anxiety PTSD (post-traumatic stress disorder) Family History Family History Mother Brain cancer Other No family history of cardiac disease Social History Social History Household Members: Other Household Members Other:: [employer] staff & peers Housing: Other Housing Other:: Senior Living Do you presently have visiting nurse or other home services: No Unable to assess alcohol history related to: Unable to respond Alcohol intake: never Patient Tobacco Use Status: Former Tobacco user Tobacco use type: Cigarette Cigarette Packs Per Day: 0.5 Cigarettes Per Day: 4 Years Smoked: 20 Smoked in Last 30 Days: Yes e-Cigarette/Vaping Use: Never Used Second Hand Smoke Exposure: No Use of substances other than those prescribed or required for medical reasons: Yes Substance Use Type: Marijuana Advance Directives: No Advance Directives Information Provided: No Do you have a plan to hurt others: No Plan Patient : No service: No Current occupation: rt handed Sexual orientation: Straight/Heterosexual Physical Exam Vital Signs: Vital Signs: Last Vital Signs Temp 97.9 F 08/14/24 15:29 Pulse 89 08/14/24 15:29 Resp 20 08/14/24 15:29 BP 127/55 L 08/14/24 15:29 Pulse Ox 96 08/14/24 15:29 O2 Del Method Room Air 08/14/24 15:29 BMI result Body Mass Index 38.6 Appearance: Alert. Oriented X3. Mild acute distress. very tearful and upset Eyes: Pupils equal, round and reactive to light. ENT: Pharynx normal. Neck: Normal inspection. Neck supple. CVS: Normal heart rate and rhythm. Pulses normal. Respiratory: No respiratory distress. Breath sounds normal. Abdomen: Soft and nontender. Skin: Skin warm and dry. Normal skin color. Normal skin turgor. Extremities: No lower extremity edema. No calf ttp Neuro: Oriented X 3. No motor deficit. No sensory deficit. CN2-12 intact Course Course Course Narrative: signed out to Dr. Lyman pending labs Medications Administered Discontinued Medications Generic Name Dose Route Start Last Admin Trade Name Freq PRN Reason Stop Dose Admin Haloperidol Lactate 5 mg 08/14/24 15:12 08/14/24 15:43 Haloperidol Lactate 5 Mg/Ml Vial IM 08/14/24 15:13 5 mg STAT STA Administration Lorazepam 2 mg 08/14/24 15:12 08/14/24 15:43 Lorazepam 2 Mg/Ml Vial IM 08/14/24 15:13 2 mg STAT STA Administration Medical Decision Making Medical Decision Making MDM Narrative: 39 yo female with PMH of PTSD, schizoaffective disorder, asthma, adjustment disorder, GERD here with c/o SI and depression in relation to her father's . At this time she wants to get IM medications for anxiety. Will give haldol/ativan and refer to CARE team Differential Diagnosis Differential Diagnoses: The differential diagnosis associated with the presentation includes SI, depression Admission/Observation Consideration of admission/observation: Escalation of care including admission/observation considered physician observation started at 334pm Consult Healthcare Provider Management of the patient was discussed with: Behavioral Health Provider Lab Data [facility] Lab Attestation statement: I reviewed the patient's lab results. 08/14/24 15:43 08/14/24 15:43 Labs: Lab Results 08/14/24 Range/Units 15:43 WBC 8.0 (4.8-10.8) X10*3/uL RBC 4.05 L (4.20-5.50) X10*6/uL Hgb 12.1 (12.0-16.0) g/dl Hct 36.7 L (37.0-47.0) % MCV 90.6 (80.0-98.0) fL MCH 29.9 (27.0-33.0) pg MCHC 33.0 (31.0-35.0) g/dl RDW 12.4 (11.0-16.0) % Plt Count 279 (160-400) X10*3/uL MPV 10.4 (9.4-12.3) fL Immature Gran % (Auto) 0.3 (0.0-0.4) % Neut % (Auto) 76.2 H (45-73) % Lymph % (Auto) 15.7 L (20-40) % [place] % (Auto) 6.8 (2-11) % Eos % (Auto) 0.6 (0-4) % Baso % (Auto) 0.4 (0-2) % Lymph # (Auto) 1.3 (1.2-4.9) X10*3/uL [place] # (Auto) 0.5 (0.1-1.2) X10*3/uL Eos # (Auto) 0.1 (0.0-0.4) X10*3/uL Baso # (Auto) 0.0 (0.0-0.2) X10*3/uL Abs Immat Gran (auto) 0.02 (0.00-0.03) X10*3/uL Absolute Neuts (auto) 6.1 (2.0-8.3) x10*3/uL Absolute Nucleated RBC 0.000 (0.0-0.012) X10*3/uL Nucleated RBC % (auto) 0.0 (0.0-0.2) /100WBC Independent Historian Clinical information obtained from an independent historian. History obtained from or confirmed by: EMS External Record Review External record reviewed: Inpatient record and Outpatient record Discharge Plan Discharge Clinical Impression: Schizoaffective disorder, depressive type Patient Disposition: Still a Patient Prescriptions: No Action clonidine HCl 0.1 mg tablet 0.1 mg PO TID benztropine 0.5 mg tablet 0.5 mg PO BID haloperidol 5 mg tablet 5 mg PO TID PRN (Reason: hallucinations) diphenhydramine HCl [Banophen] 50 mg capsule 100 mg PO BEDTIME haloperidol decanoate 100 mg/mL solution 75 mg IM Q4W prazosin 5 mg capsule 15 mg PO BEDTIME trazodone 100 mg tablet 200 mg PO BEDTIME omeprazole 20 mg capsule,delayed release(DR/EC) 20 mg PO Q OTHER DAY albuterol sulfate [Ventolin HFA] 90 mcg/actuation HFA aerosol inhaler 2 puff INHALATION QID PRN (Reason: wheezing) lithium carbonate 300 mg tablet 300 mg PO BID duloxetine 60 mg capsule,delayed release(DR/EC) 60 mg PO QAM fluticasone propion-salmeterol [Advair HFA] 230-21 mcg/actuation HFA aerosol inhaler 2 puff INHALATION BID cholecalciferol (vitamin D3) [Vitamin D3] 25 mcg (1,000 unit) tablet 25 mcg PO QAM calcium carbonate-vitamin D3 600 mg-10 mcg (400 unit) tablet 1 tab PO BID Incruse Ellipta 62.5 mcg/actuation blister with device 1 inh inhalation DAILY bupropion HCl 150 mg Tablet Extended Release 24 Hr 150 mg PO DAILY 30 Days Qty: 30 0RF psyllium husk [Daily Fiber] 0.4 gram capsule 0.8 g PO BID ibuprofen 600 mg tablet 600 mg PO TID PRN (Reason: arthritis) zolpidem 10 mg tablet 10 mg PO BEDTIME multivitamin Tablet 1 tab PO DAILY cetirizine 10 mg tablet 10 mg PO DAILY lorazepam 1 mg Tablet 1 mg PO TID PRN (Reason: anxiety/agitation) Qty: 0 0RF Interventions: Churchill-Suicide Risk Severity Scale Last Done: 08/14/24 15:31 Print Language: Citizen [place]
--- NOTE | 2024-08-14 15:34 | PC.NURSE ---
belongings in helms closet on floor
[2024-08-14] MEDS: LORazepam 2 MG/ML VIAL IM ×2 (15:43→20:50)
[2024-08-14] MEDS: Haloperidol Lactate 5 MG/ML VIAL IM (15:43)
[2024-08-14 15:48] LABS: MANUAL DIFF FLAG NO
[2024-08-14 15:51] LABS: Basophils Percent Auto 0.4 % (0-2); Eosinophils Absolute Auto 0.1 X10*3/uL (0.0-0.4); Eosinophils Percent Auto 0.6 % (0-4); Hematocrit 36.7 % (37.0-47.0); Hemoglobin 12.1 g/dl (12.0-16.0); Imm Gran Abs Auto 0.02 X10*3/uL (0.00-0.03); Imm Gran Pct Auto 0.3 % (0.0-0.4); Lymphocytes Absolute Auto 1.3 X10*3/uL (1.2-4.9); Lymphocytes Percent Auto 15.7 % (20-40); Mean Corpuscular Hemoglobin 29.9 pg (27.0-33.0); Mean Corpuscular Volume 90.6 fL (80.0-98.0); Mean Platelet Volume 10.4 fL (9.4-12.3); Monocytes Absolute Auto 0.5 X10*3/uL (0.1-1.2); Monocytes Percent Auto 6.8 % (2-11); Neutrophils Absolute Auto 6.1 x10*3/uL (2.0-8.3); Neutrophils Percent Auto 76.2 % (45-73); Platelet Count 279 X10*3/uL (160-400); Red Blood Count 4.05 X10*6/uL (4.20-5.50); Red Cell Distribution Width 12.4 % (11.0-16.0)
--- NOTE | 2024-08-14 15:52 | PC.NURSE ---
IM medications given per pt request d/t pts anxiety. pt in behavioral control. DO Janet aware of plan.
[2024-08-14 16:16] LABS: Alanine Aminotransferase 10 U/L (0-31); Albumin Level 4.1 g/dL (3.5-5.0); Alkaline Phosphatase 59 U/L (39-117); Anion Gap 11 (12-20); Aspartate Amino Transferase 17 U/L (5-31); Bilirubin Direct 0.1 mg/dL (0.0-0.5); Bilirubin Total 0.3 mg/dL (0.0-1.0); Blood Urea Nitrogen 7 mg/dL (9-16); Calcium 9.6 mg/dL (8.4-10.2); Carbon Dioxide 22 mmol/L (22-29); Chloride 108 mmol/L (96-108); Creatinine Clr Calc Pharmacy 93.5; Estimated Glomerular Filt Rate > 60; Ethanol < 10 mg/dL; Glucose Random 92 mg/dL (60-115); HCG Quantitative < 2 mIU/mL; Lipase 17 U/L (8-78); Magnesium 1.6 mg/dL (1.6-2.6); Potassium 4.3 mmol/L (3.3-5.1); Sodium 137 mmol/L (135-145); Total Protein 7.1 g/dL (6.5-8.0)
[2024-08-14] MEDS: Acetaminophen 325 MG TABLET 975 MG PO (16:49)
[2024-08-14] MEDS: Ibuprofen 600 MG TABLET PO (16:50)
--- NOTE | 2024-08-14 17:10 | PC.NURSE ---
Assumed care of patient at 1645. Alert and oriented, OOB ambulating unit, gait steady. Patient currently calm and cooperative, interacting with staff appropriately. Continue with plan of care for care team
[2024-08-14 17:38] LABS: Appearance Urine Cloudy; Color Urine Yellow; Glucose Urine UA Negative (Negative); Leukocyte Esterase Urine Negative (Negative); Nitrite Urine Negative (Negative); Urine Blood Negative (Negative); Urine Ketones Negative (Negative); Urine Protein Negative (Neg-Trace)
[2024-08-14 17:45] LABS: UPreg QC Valid YES; Urine Pregnancy NEGATIVE (NEGATIVE)
[2024-08-14 18:49] LABS: Amphetamine Screen Urine Not Detected (Not Detect); Barbiturates, Urine Not Detected (Not Detect); Benzodiazepines Screen Urine Not Detected (Not Detect); Buprenorphine Scr Not Detected (Not Detect); Cannabinoid Screen Urine POSITIVE (Not Detect); Cocaine Screen Urine Not Detected (Not Detect); Fentanyl, urine Not Detected (Not Detect); Methadone Screen, Urine Not Detected (Not Detect); Opiate Screen Urine Not Detected (Not Detect); Oxycodone Screen Urine Not Detected (Not Detect); Phencyclidine Screen Urine Not Detected (Not Detect)
[2024-08-14] MEDS: Cholecalciferol (Vitamin D3) 25 MCG TABLET PO (20:12)
[2024-08-14] MEDS: diphenhydrAMINE HCL 25 MG CAPSULE 100 MG PO (20:12)
[2024-08-14] MEDS: Zolpidem Tartrate 5 MG TABLET 10 MG PO (20:12)
[2024-08-14] MEDS: Benztropine Mesylate 0.5 MG TABLET PO (20:12)
[2024-08-14] MEDS: traZODone HCL 100 MG TABLET 200 MG PO (20:12)
[2024-08-14 20:13] VITALS: BP 111/66
[2024-08-14] MEDS: DULoxetine HCl 60 MG CAPSULE.DR PO (20:13)
[2024-08-14] MEDS: Lithium Carbonate 300 MG CAPSULE PO (20:13)
[2024-08-14] MEDS: cloNIDine HCL 0.1 MG TABLET PO (20:13)
[2024-08-14 20:15] VITALS: BP 111/66; PULSE 84; RESP 17; TEMP 36.9; O2SAT 97
[2024-08-14] MEDS: LORazepam 1 MG TABLET PO (20:29)
[2024-08-14] MEDS: Calcium + Vitamin D 250 MG TABLET 500 MG PO (20:30)
--- NOTE | 2024-08-14 20:31 | PC.NURSE ---
Addendum entered by Rodolfo Adkins 08/14/24 21:03: minipress med not available in pyxis. pharmacy notified approx 2004, awaiting arrival to [facility]. Original Note: pt medicated per oct with PM meds, tolerated well, calm/cooperative with vitals. at this time pt stating she needs IM Haldol to help with anxiety/sleep, verbally redirectable and in agreement to PRN Ativan at this time. now resting in room nad.
--- NOTE | 2024-08-14 21:01 | PC.NURSE ---
pt previously having increased sx anxiety, pacing and stating she is having auditory hallucinations of a voice telling her to hit her head against the wall. scheduled meds and PRN given per mar without improvement. pt seen hitting head with palm in room. attempt to redirect/verbal reassurance by multiple staff. pt verbalized needing IM med & MD in agreement. after receiving med pt is resting comfortably in stretcher, warm blankets provided. NAD.
[2024-08-14 21:29] VITALS: RESP 18
[2024-08-15] VITALS (8 sets, daily range): BP systolic 109–123; BP diastolic 49–77; PULSE 72–89; RESP 12–20; TEMP 36.6–36.7; O2SAT 96–99
[2024-08-15] MEDS: Ibuprofen 600 MG TABLET PO (01:03)
--- NOTE | 2024-08-15 09:00 | PC.NURSE ---
Pt currently resting- resps even
[2024-08-15] MEDS: Benztropine Mesylate 0.5 MG TABLET PO ×2 (11:06→19:28)
[2024-08-15] MEDS: buPROPion HCl XL 150 MG TAB.ER.24H PO (11:06)
[2024-08-15] MEDS: Lithium Carbonate 300 MG CAPSULE PO ×2 (11:06→19:28)
[2024-08-15] MEDS: DULoxetine HCl 60 MG CAPSULE.DR PO (11:06)
[2024-08-15] MEDS: cloNIDine HCL 0.1 MG TABLET PO ×2 (11:07→16:08)
[2024-08-15] MEDS: Loratadine 10 MG TABLET PO (11:07)
[2024-08-15] MEDS: LORazepam 1 MG TABLET PO (11:35)
--- NOTE | 2024-08-15 11:44 | MHC.CARE ---
Pt will be a next day follow up
--- NOTE | 2024-08-15 12:00 | PC.NURSE ---
Pt asking for Ativan to help maintain control
--- NOTE | 2024-08-15 15:06 | PHA.MEDREC ---
Addendum entered by Bruce Junior 08/15/24 15:20: reviewed Original Note: Pharmacy Consult ? Medication Reconciliation Pharmacy reviewed med rec confirmed by nursing. Spoke with patient and she was able to confirm her medications. She confirmed she took her Ompeprazole 20mg tab yesterday along with all her other medications. She was not so sure about her Haloperidol solution or tablet but states if it is on my list from the program, I am taking it . She was able to confirm she is taking the Bupropion 150mg tab and states she just started that medication in the last few weeks. I updated the med rec according to what the patient stated to me and the list from the program.
--- NOTE | 2024-08-15 16:16 | PC.NURSE ---
Pt took clonidine w/o diff but both breakfast and lunch trays removed from room untouched. Pt states she isn't going to eat.
[2024-08-15 18:20] LABS: Glucose, Whole Blood 89 mg/dL (60-115)
--- NOTE | 2024-08-15 18:24 | PC.NURSE ---
Pt woke and c/o shakiness. no neuro deficits noted. steady on feet. hasn't been eating. POC 89. VSS. given juice, tea and a banana and she consumed all of it. Speech clear. NAD. Awaits clear plan of care. Still endorses SI.
[2024-08-15] MEDS: traZODone HCL 100 MG TABLET 200 MG PO (19:27)
[2024-08-15] MEDS: Zolpidem Tartrate 5 MG TABLET 10 MG PO (19:28)
[2024-08-15] MEDS: HaloperidoL 5 MG TABLET PO (19:28)
[2024-08-15] MEDS: diphenhydrAMINE HCL 25 MG CAPSULE 100 MG PO (19:28)
[2024-08-15] MEDS: Calcium + Vitamin D 250 MG TABLET 500 MG PO (19:28)
[2024-08-15] MEDS: LORazepam 2 MG/ML VIAL IM (19:33)
[2024-08-15] MEDS: Prazosin HCL 5 MG CAPSULE 15 MG PO (19:34)
[2024-08-15] MEDS: Prazosin HCL 1 MG CAPSULE PO (19:35)
[2024-08-16 06:09] VITALS: BP 129/72; PULSE 76; RESP 18; TEMP 36.9; O2SAT 98
--- NOTE | 2024-08-16 06:47 | PC.NURSE ---
pt rested comfortably all night with sitter at bedside, no apparent distress noted
--- NOTE | 2024-08-16 08:42 | PC.NURSE ---
patient moved to pod, asleep at this time with even and unlabored respirations
[2024-08-16] MEDS: HaloperidoL 5 MG TABLET PO (09:53)
[2024-08-16] MEDS: Cholecalciferol (Vitamin D3) 25 MCG TABLET PO (09:53)
[2024-08-16] MEDS: Benztropine Mesylate 0.5 MG TABLET PO (09:53)
[2024-08-16] MEDS: cloNIDine HCL 0.1 MG TABLET PO (09:53)
[2024-08-16] MEDS: buPROPion HCl XL 150 MG TAB.ER.24H PO (09:53)
[2024-08-16] MEDS: Loratadine 10 MG TABLET PO (09:53)
[2024-08-16] MEDS: Lithium Carbonate 300 MG CAPSULE PO (09:53)
[2024-08-16] MEDS: Calcium + Vitamin D 250 MG TABLET 500 MG PO (09:53)
[2024-08-16] MEDS: DULoxetine HCl 60 MG CAPSULE.DR PO (09:53)
[2024-08-16] MEDS: Nicotine Polacrilex 2 MG GUM BUCCAL (10:25)
[2024-08-16 10:43] VITALS: BP 129/72; PULSE 76; RESP 18; TEMP 36.9; O2SAT 98
== END 2024-08-16 10:44 | disposition home or self-care (01) ==
PROVIDERS: Emergency Medicine; Emergency Provider Emergency Medicine; PCP Nurse Practitioner Family
DX: F25.1 Schizoaffective disorder, depressive type (principal); R45.851 Suicidal ideations; F32.A Depression, unspecified; Z79.899 Other long term (current) drug therapy; Z63.4 Disappearance and death of family member
CPT/HCPCS: 36415; 80048; 80076; 80307; 81003; 81025; 82947; 83690; 83735; 84702; 85025; 96372; 99285; J1630; J2060; S9485

== ENCOUNTER 2024-08-16 20:17 | Inpatient (IN) | payer OTHER, SELFPAY ==
--- NOTE | ~2024-08-16 | XR_ITS ---
EXAMINATION: XR ABDOMEN KUB CLINICAL INDICATION: assess stool burden COMPARISON: None available. TECHNIQUE: AP view of the abdomen. FINDINGS: There is scattered stool and gas seen in colon without distention. The small bowel loops are normal caliber. No organomegaly. No gross bony abnormality. XR/XR KUB IMPRESSION: Mild constipation. Electronically signed by: Bry Cox MD 08/22/2024 12:00 PM [facility]
[2024-08-16 20:29] VITALS: BP 109/79; BP 160/100; PULSE 110; PULSE 114; RESP 18; TEMP 37.1; O2SAT 100; O2SAT 97; BMI 31.9
--- NOTE | 2024-08-16 20:38 | PC.NURSE ---
t/w completed changeover for patient no evidence of recent self harm or contraband patient allowed to retain own undergarment manually checked by staff
--- NOTE | 2024-08-16 20:45 | ED.GENADULT ---
HPI - General Adult General Chief complaint: Psychiatric Symptoms Stated complaint: depression Time Seen by Provider: 08/16/24 20:45 Source: patient, EMS and RN notes reviewed Mode of arrival: ambulatory Limitations: no limitations History of Present Illness ED Provider: Sindy HPI narrative: 39-year-old female with past medical history significant for major depressive disorder, PTSD, schizoaffective disorder, borderline personality, COPD presents for evaluation of suicidal ideation. Patient reports that her father recently which she is not coping well with. She was seen here earlier today and discharged back home. She reports that she still depressed and having suicidal intentions The patient has a long history of self-harm and striking her head against the wall. She was requesting ?injection to help me sleep because I can not. ? The patient is refusing oral medications stating ?they do not work fast enough. She is currently resting comfortably The patient states ?I was supposed to be sectioned yesterday and I am not ready to be home. ? Related Data Home Medications ?Medication ?Instructions ?Recorded ?Confirmed albuterol sulfate 90 mcg/actuation 2 puff inhalation QID PRN wheezing 04/30/24 08/15/24 aerosol inhaler (Ventolin HFA) benztropine 0.5 mg tablet 0.5 mg PO BID 04/30/24 08/15/24 clonidine HCl 0.1 mg tablet 0.1 mg PO TID 04/30/24 08/15/24 diphenhydramine HCl 50 mg capsule 100 mg PO BEDTIME insomnia 04/30/24 08/15/24 (Banophen) duloxetine 60 mg capsule,delayed 60 mg PO DAILY 04/30/24 08/15/24 release lithium carbonate 300 mg tablet 300 mg PO BID 04/30/24 08/15/24 omeprazole 20 mg capsule,delayed 20 mg PO Q OTHER DAY 04/30/24 08/15/24 release prazosin 5 mg capsule 15 mg PO BEDTIME 04/30/24 08/15/24 trazodone 100 mg tablet 200 mg PO BEDTIME insomnia 04/30/24 08/15/24 cetirizine 10 mg tablet 10 mg PO DAILY 05/17/24 08/15/24 ibuprofen 600 mg tablet 600 mg PO TID PRN arthritis 05/17/24 08/15/24 multivitamin 1 tab PO DAILY 05/17/24 08/15/24 psyllium husk 0.4 gram capsule 0.8 g PO BID 05/17/24 08/15/24 (Daily Fiber) zolpidem 10 mg tablet 10 mg PO BEDTIME insomnia 05/17/24 08/15/24 calcium 600 mg (as 1 tab PO BID 07/29/24 08/15/24 carbonate)-vitamin D3 10 mcg (400 unit) tablet cholecalciferol (vitamin D3) 25 25 mcg PO DAILY 07/29/24 08/15/24 mcg (1,000 unit) tablet (Vitamin D3) fluticasone propionate 230 2 puff inhalation BID 07/29/24 08/15/24 mcg-salmeterol 21 mcg/actuation HFA inhaler (Advair HFA) acetaminophen 500 mg tablet 500 mg PO Q6H PRN Pain 08/15/24 08/15/24 fluticasone propionate 50 2 spray intranasal DAILY 08/15/24 08/15/24 mcg/actuation nasal spray,suspension haloperidol 5 mg tablet 5 mg PO TID 08/15/24 08/15/24 haloperidol decanoate 100 mg/mL 75 mg IM Q28D 08/15/24 08/15/24 intramuscular solution lidocaine 5 % topical patch 1 patch topical DAILY 08/15/24 08/15/24 nicotine (polacrilex) 2 mg gum 2 mg PO Q2H PRN Cravings 08/15/24 08/15/24 polyethylene glycol 3350 17 17 g PO DAILY PRN Constipation 08/15/24 08/15/24 gram/dose oral powder (Miralax) prazosin 1 mg capsule 1 mg PO BEDTIME 08/15/24 08/15/24 Previous Rx's ?Medication ?Instructions ?Recorded lorazepam 1 mg tablet 1 mg PO TID PRN anxiety/agitation 05/22/24 #0 tabs bupropion HCl 150 mg 24 hr tablet, 150 mg PO DAILY 30 days #30 tabs 08/03/24 extended release Allergies Allergy/AdvReac Type Severity Reaction Status Date / Time carbamazepine [From TEGRETOL] AdvReac Mild Nausea and Verified 08/16/24 20:32 Vomiting topiramate [From Topamax] AdvReac Mild Nausea and Verified 08/16/24 20:32 Vomiting cheese AdvReac Nausea and Verified 08/16/24 20:32 Vomiting Review of Systems Constitutional: Constitutional: Denies body ache(s), Denies chills and Denies fever(s) Eyes: Eyes: Denies blurry vision Cardiovascular: Cardiovascular: Denies chest pain Gastrointestinal: Gastrointestinal: Denies abdominal pain Musculoskeletal: Musculoskeletal: Denies back pain Neurologic: Denies confusion Psychiatric: Psychiatric: Reports anxiety, Denies confusion, Reports depression and Reports suicidal ideation PMFSH Past Medical History Medical History Pre-op evaluation MDD (major depressive disorder), recurrent, severe, with psychosis Port-A-Cath in place History of electroconvulsive therapy COVID-19 COVID-19 Sprain of left foot Chronic post-traumatic stress disorder (PTSD) COPD (chronic obstructive pulmonary disease) Increased BMI GERD (gastroesophageal reflux disease) Recurrent major depression-severe Acute post-traumatic stress disorder Injury, self-inflicted Suicidal ideation Self-harming behavior Intentional self-harm Suicidal ideation Borderline personality disorder Schizoaffective disorder Adjustment disorder Asthma Depression Anxiety PTSD (post-traumatic stress disorder) Family History Family History Mother Brain cancer Other No family history of cardiac disease Social History Social History Household Members: Other Household Members Other:: nursing home staff & peers Housing: Other Housing Other:: Snf Do you presently have visiting nurse or other home services: No Unable to assess alcohol history related to: Unable to respond Alcohol intake: never Patient Tobacco Use Status: Former Tobacco user Tobacco use type: Cigarette Cigarette Packs Per Day: 0.5 Cigarettes Per Day: 4 Years Smoked: 20 e-Cigarette/Vaping Use: Never Used Second Hand Smoke Exposure: No Substance Use Type: Marijuana Do you have a plan to hurt others: No Plan service: No Current occupation: rt handed Sexual orientation: Straight/Heterosexual Physical Exam ED Vital Signs: Vital Signs - 24 hr 08/16/24 20:29 Temperature 98.8 F Pulse Rate 114 H Respiratory Rate 18 Blood Pressure 109/79 Pulse Oximetry 97 Oxygen Delivery Method Room Air BMI result Body Mass Index 31.9 Const General: No confusion Nutritional Appearance: well nourished Orientation/consciousness: No confusion HENMT Head: Yes normocephalic Eyes Eyelids: Yes eyelids normal Conjunctivae: conjunctivae normal Sclerae: sclerae normal Corneas: corneas normal Pupils: Equal, round and reactive pupils present EOM: EOMs intact bilaterally Neck Neck: Yes full ROM Resp Effort & Inspection: normal respiratory effort, able to speak in complete sentences and not labored GI Inspection: No distended Palpation (GI): Soft to palpation, not firm, nontender, no guarding and not rigid Skin General skin exam: elasticity normal Neuro General: No confusion Cranial nerves: Yes Equal, round and reactive pupils present and Yes Bilaterally intact EOM present Cognition (Neuro): normal cognition Extrem Other: Moving all extremities well without any obvious deformities Medical Decision Making Medical Decision Making MDM Narrative: 39-year-old female with past medical history as documented above presents for evaluation of depression with suicidal ideation. The patient was seen by the care team at 10:30 a.m. this morning and discharged back home after a 2 day stay in the ER. The patient reports continued suicidal ideation. Plan for medical clearance and re-evaluation. The patient has a fairly volatile history and can be impulsive and aggressive with self-harm tendencies. She was requesting IM medications and refuses to attempt oral medications. She was medicated with intramuscular Zyprexa and Ativan at her request for comfort. This was not a medication restrained. Differential Diagnosis Differential Diagnoses: The differential diagnosis associated with the presentation includes Schizoaffective disorder Borderline personality disorder Adjustment disorder Depression with suicidal ideation Discharge Plan Discharge Clinical Impression: Depression with suicidal ideation Patient Disposition: Still a Patient Prescriptions: No Action clonidine HCl 0.1 mg tablet 0.1 mg PO TID benztropine 0.5 mg tablet 0.5 mg PO BID diphenhydramine HCl [Banophen] 50 mg capsule 100 mg PO BEDTIME prazosin 5 mg capsule 15 mg PO BEDTIME trazodone 100 mg tablet 200 mg PO BEDTIME omeprazole 20 mg capsule,delayed release(DR/EC) 20 mg PO Q OTHER DAY albuterol sulfate [Ventolin HFA] 90 mcg/actuation HFA aerosol inhaler 2 puff INHALATION QID PRN (Reason: wheezing) lithium carbonate 300 mg tablet 300 mg PO BID duloxetine 60 mg capsule,delayed release(DR/EC) 60 mg PO DAILY fluticasone propion-salmeterol [Advair HFA] 230-21 mcg/actuation HFA aerosol inhaler 2 puff INHALATION BID cholecalciferol (vitamin D3) [Vitamin D3] 25 mcg (1,000 unit) tablet 25 mcg PO DAILY calcium carbonate-vitamin D3 600 mg-10 mcg (400 unit) tablet 1 tab PO BID bupropion HCl 150 mg Tablet Extended Release 24 Hr 150 mg PO DAILY 30 Days Qty: 30 0RF haloperidol 5 mg tablet 5 mg PO TID nicotine (polacrilex) 2 mg gum 2 mg PO Q2H PRN (Reason: Cravings) prazosin 1 mg capsule 1 mg PO BEDTIME haloperidol decanoate 100 mg/mL solution 75 mg IM Q28D acetaminophen 500 mg Tablet 500 mg PO Q6H PRN (Reason: Pain) lidocaine 5 % adhesive patch,medicated 1 patch topical DAILY polyethylene glycol 3350 [Miralax] 17 gram/dose Powder 17 g PO DAILY PRN (Reason: Constipation) fluticasone propionate 50 mcg/actuation spray,suspension 2 spray intranasal DAILY psyllium husk [Daily Fiber] 0.4 gram capsule 0.8 g PO BID ibuprofen 600 mg tablet 600 mg PO TID PRN (Reason: arthritis) zolpidem 10 mg tablet 10 mg PO BEDTIME multivitamin Tablet 1 tab PO DAILY cetirizine 10 mg tablet 10 mg PO DAILY lorazepam 1 mg Tablet 1 mg PO TID PRN (Reason: anxiety/agitation) Qty: 0 0RF Print Language: Niuean
[2024-08-16] MEDS: OLANZapine 10 MG VIAL IM (20:47)
[2024-08-16] MEDS: LORazepam 2 MG/ML VIAL IM (20:47)
[2024-08-16 21:29] LABS: Hemoglobin 11.8 g/dl (12.0-16.0); PLT CLUMP 1; Red Cell Distribution Width 12.3 % (11.0-16.0); SCAN SMEAR FLAG 1
[2024-08-16 21:31] LABS: Basophils Percent Auto 0.3 % (0-2); Eosinophils Percent Auto 0.5 % (0-4); Hematocrit 35.5 % (37.0-47.0); Imm Gran Abs Auto 0.02 X10*3/uL (0.00-0.03); Imm Gran Pct Auto 0.3 % (0.0-0.4); Lymphocytes Absolute Auto 1.2 X10*3/uL (1.2-4.9); Lymphocytes Percent Auto 15.7 % (20-40); MANUAL DIFF FLAG SCAN; Mean Corpuscular HGB Conc 33.2 g/dl (31.0-35.0); Mean Corpuscular Volume 90.3 fL (80.0-98.0); Mean Platelet Volume 11.1 fL (9.4-12.3); Monocytes Absolute Auto 0.5 X10*3/uL (0.1-1.2); Monocytes Percent Auto 6.9 % (2-11); Neutrophils Absolute Auto 5.8 x10*3/uL (2.0-8.3); Neutrophils Percent Auto 76.3 % (45-73); Red Blood Count 3.93 X10*6/uL (4.20-5.50)
[2024-08-16 21:41] LABS: Lithium 0.83 mmol/L (0.60-1.20)
[2024-08-16 21:50] LABS: Alanine Aminotransferase 17 U/L (0-31); Albumin Level 3.9 g/dL (3.5-5.0); Alkaline Phosphatase 54 U/L (39-117); Anion Gap 9 (12-20); Aspartate Amino Transferase 18 U/L (5-31); Bilirubin Direct < 0.2 mg/dL (0.0-0.5); Bilirubin Total 0.2 mg/dL (0.0-1.0); Blood Urea Nitrogen 8 mg/dL (9-16); Calcium 8.9 mg/dL (8.4-10.2); Carbon Dioxide 24 mmol/L (22-29); Chloride 109 mmol/L (96-108); Creatinine Clr Calc Pharmacy 107.2; Estimated Glomerular Filt Rate > 60; Glucose Random 100 mg/dL (60-115); Magnesium 1.8 mg/dL (1.6-2.6); Potassium 3.9 mmol/L (3.3-5.1); Sodium 138 mmol/L (135-145); Total Protein 6.7 g/dL (6.5-8.0)
[2024-08-16 21:51] LABS: White Blood Count 7.6 X10*3/uL (4.8-10.8)
[2024-08-16 21:52] LABS: Platelet Count 238 X10*3/uL (160-400)
[2024-08-16 21:53] LABS: SLIDE REVIEW VERIFIED
[2024-08-16 22:18] LABS: UPreg QC Valid YES; Urine Pregnancy NEGATIVE (NEGATIVE)
[2024-08-16 22:46] LABS: Amphetamine Screen Urine Not Detected (Not Detect); Barbiturates, Urine Not Detected (Not Detect); Benzodiazepines Screen Urine Not Detected (Not Detect); Buprenorphine Scr Not Detected (Not Detect); Cannabinoid Screen Urine POSITIVE (Not Detect); Cocaine Screen Urine Not Detected (Not Detect); Fentanyl, urine Not Detected (Not Detect); Methadone Screen, Urine Not Detected (Not Detect); Opiate Screen Urine Not Detected (Not Detect); Oxycodone Screen Urine Not Detected (Not Detect); Phencyclidine Screen Urine Not Detected (Not Detect)
[2024-08-17] VITALS (8 sets, daily range): BP systolic 117–133; BP diastolic 52–83; PULSE 84–97; RESP 16–20; TEMP 36.7–37.1; O2SAT 97–99
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
[2024-08-17 09:06] LABS: Ethanol < 10 mg/dL
--- NOTE | 2024-08-17 09:10 | PC.NURSE ---
pt continuos on sleeping, respirations even and unlabored plan for the patient to go inpatient bed search
--- NOTE | 2024-08-17 09:16 | ECG_ITS ---
Test Reason : MED CLEARANCE Blood Pressure : / mmHG Vent. Rate : 089 BPM Atrial Rate : 089 BPM P-R Int : 146 ms QRS Dur : 070 ms QT Int : 478 ms P-R-T Axes : 076 090 074 degrees QTc Int : 581 ms Normal sinus rhythm Possible Left atrial enlargement Rightward axis Borderline ECG When compared with ECG of 19-MAY-2024 14:29, QT has lengthened Referred By: Generic ED Physician Electronically Signed By:DONAL HAAS MD
--- NOTE | 2024-08-17 10:32 | PC.NURSE ---
med/rec completed and provider notified
--- NOTE | 2024-08-17 10:55 | PC.NURSE ---
pt is awake, calm and cooperative at this time, pt is reporting that she is feeling constipated, last bowel movement was a bout a week ago, attempted to use the bathroom a fe minutes ago with no success, pt is requesting something for constipation, aware
[2024-08-17] MEDS: cloNIDine HCL 0.1 MG TABLET PO ×3 (11:15→20:50)
[2024-08-17] MEDS: DULoxetine HCl 60 MG CAPSULE.DR PO (11:15)
[2024-08-17] MEDS: Lithium Carbonate 300 MG CAPSULE PO ×2 (11:16→20:47)
[2024-08-17] MEDS: HaloperidoL 5 MG TABLET PO ×3 (11:16→20:49)
[2024-08-17] MEDS: buPROPion HCl XL 150 MG TAB.ER.24H PO (11:16)
--- NOTE | 2024-08-17 12:00 | PC.NURSE ---
pt reports feeling anxious, offered Ativan and pt accepted
[2024-08-17] MEDS: LORazepam 1 MG TABLET PO ×2 (12:02→20:58)
--- NOTE | 2024-08-17 12:23 | MHC.CARE ---
Pt seen by CARE team and will be inpatient bed search.
[2024-08-17] MEDS: polyethylene glycoL 3350 17 GM POWD.PACK PO ×2 (17:57→20:43)
[2024-08-17] MEDS: Docusate Sodium 100 MG CAPSULE 200 MG PO (17:58)
--- NOTE | 2024-08-17 18:21 | PC.NURSE ---
report given to Leia Del Real
[2024-08-17 19:20] LABS: Alanine Aminotransferase 12 U/L (0-31); Alkaline Phosphatase 55 U/L (39-117); Anion Gap 11 (12-20); Aspartate Amino Transferase 15 U/L (5-31); Bilirubin Total 0.2 mg/dL (0.0-1.0); Blood Urea Nitrogen 7 mg/dL (9-16); Calcium 8.9 mg/dL (8.4-10.2); Carbon Dioxide 23 mmol/L (22-29); Chloride 109 mmol/L (96-108); Creatinine Clr Calc Pharmacy 96.5; Estimated Glomerular Filt Rate > 60; Glucose Random 83 mg/dL (60-115); Potassium 3.6 mmol/L (3.3-5.1); Sodium 139 mmol/L (135-145); Total Protein 6.8 g/dL (6.5-8.0)
[2024-08-17] MEDS: Milk of Magnesia 30 ML ORAL.SUSP PO (19:32)
[2024-08-17] MEDS: diphenhydrAMINE HCL 25 MG CAPSULE 100 MG PO (20:44)
[2024-08-17] MEDS: traZODone HCL 100 MG TABLET 200 MG PO (20:45)
[2024-08-17] MEDS: Prazosin HCL 1 MG CAPSULE PO (20:47)
[2024-08-17] MEDS: Zolpidem Tartrate 5 MG TABLET PO (20:47)
[2024-08-17] MEDS: Benztropine Mesylate 0.5 MG TABLET PO (20:47)
[2024-08-17] MEDS: Prazosin HCL 5 MG CAPSULE 15 MG PO (20:48)
[2024-08-17] MEDS: Acetaminophen 325 MG TABLET 650 MG PO (20:49)
[2024-08-17] MEDS: OLANZapine 10 MG VIAL 5 MG IM (22:08)
--- NOTE | 2024-08-17 22:12 | PC.NURSE ---
Stella requested PRN zyprexa IM because IM works better . Dr Ronnie Jesus made aware via tigertext. IM shot administered. pt tolerated well.
--- NOTE | 2024-08-17 23:36 | PC.NURSE ---
Stella arrived on m3 from POD at 18:30, on a CV, for the treatment of SI. Precipitants of this admission include recent stressors- father passed 2 days ago and per patient I miss him so much.We were so close . Pt also stated I haven't cut in almost a year . Pt however still reporting feeling unsafe, stating she hears voices urging her to self-harm, has negative thoughts, inner restlessness, and struggles in general. Pt rocking back and forth in an attempt to self-soothe, 1:1 sitter at bedside for safety, pt stating I just want to and be with my dad and sister , requesting & received all of her PRNs with little effect, requesting IM zyprexa because IM works better . Pt med and meal adherent, able to calm down and fall asleep after self-requested IM. Pt is on close observation, psych/structured group appropriate, skin check done with findings including scattered scars all over body from previous self-harm. Utox positive for THC. Pt is currently on her menses and reports constipation x5 days. PRN miralax & MOM tried with no effect.
[2024-08-18] MEDS: Omeprazole 20 MG CAPSULE.DR PO (06:26)
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
[2024-08-18 10:25] VITALS: BP 127/79; PULSE 87; RESP 16; TEMP 36.2; O2SAT 98
[2024-08-18] MEDS: DULoxetine HCl 60 MG CAPSULE.DR PO (10:27)
[2024-08-18] MEDS: HaloperidoL 5 MG TABLET PO ×3 (10:27→20:58)
[2024-08-18] MEDS: cloNIDine HCL 0.1 MG TABLET PO ×2 (10:27→20:56)
[2024-08-18] MEDS: Lithium Carbonate 300 MG CAPSULE PO ×2 (10:27→20:56)
[2024-08-18] MEDS: buPROPion HCl XL 150 MG TAB.ER.24H PO (10:28)
[2024-08-18] MEDS: Multivitamin TABLET 1 TAB PO (10:28)
[2024-08-18] MEDS: Cholecalciferol (Vitamin D3) 25 MCG TABLET PO (10:28)
[2024-08-18] MEDS: Benztropine Mesylate 0.5 MG TABLET PO ×2 (10:28→20:56)
[2024-08-18] MEDS: Loratadine 10 MG TABLET PO (10:28)
[2024-08-18] MEDS: LORazepam 1 MG TABLET PO ×4 (10:55→22:02)
[2024-08-18] MEDS: Lactulose 20 GM/30 ML SOLUTION 30 GM PO (10:56)
[2024-08-18 11:47] LABS: Lithium 0.84 mmol/L (0.60-1.20)
[2024-08-18] MEDS: Acetaminophen 325 MG TABLET 650 MG PO (11:49)
[2024-08-18 12:00] LABS: Cholesterol 153 mg/dL (<200); HDL Cholesterol 47 mg/dL (>40); LDL Cholesterol Calculated 89 mg/dL (<100); Triglycerides 87 mg/dL (<150)
[2024-08-18] MEDS: OLANZapine 10 MG VIAL IM (17:50)
[2024-08-18 20:09] VITALS: BP 121/70; PULSE 93; TEMP 36.7; O2SAT 96
[2024-08-18] MEDS: Zolpidem Tartrate 5 MG TABLET PO (20:56)
[2024-08-18] MEDS: OLANZapine ODT 10 MG TAB.RAPDIS TRANSLINGU (20:56)
[2024-08-18] MEDS: diphenhydrAMINE HCL 25 MG CAPSULE 100 MG PO (20:57)
[2024-08-18] MEDS: traZODone HCL 100 MG TABLET 200 MG PO (20:58)
[2024-08-18] MEDS: Prazosin HCL 1 MG CAPSULE PO (20:58)
[2024-08-18] MEDS: Prazosin HCL 5 MG CAPSULE 15 MG PO (20:58)
[2024-08-18] MEDS: polyethylene glycoL 3350 17 GM POWD.PACK PO (21:25)
--- NOTE | 2024-08-19 | ECG_ITS ---
Test Reason : ELEVATED QTC OVER 500 ON ADMIT Blood Pressure : / mmHG Vent. Rate : 080 BPM Atrial Rate : 080 BPM P-R Int : 148 ms QRS Dur : 078 ms QT Int : 388 ms P-R-T Axes : 078 089 062 degrees QTc Int : 447 ms Normal sinus rhythm Nonspecific T wave abnormality Abnormal ECG When compared with ECG of 17-AUG-2024 11:29, QT has shortened Referred By: Binta Yost Electronically Signed By:DONAL HAAS MD
[2024-08-19] MEDS: traZODone HCL 50 MG TABLET PO (00:30)
[2024-08-19 08:00] VITALS: BP 126/81; PULSE 91; RESP 16; TEMP 36.5; O2SAT 97
--- NOTE | 2024-08-19 08:47 | HO.PSYCHPN ---
Subjective Subjective Date of Service: 08/19/24 Reason For Visit: SI Subjective Notes: Conditional Voluntary Healthcare Proxy: No Guardianship: No Medical Problems Affecting Mental Status: No Interim History: 39 yo HF reports recent of father having flashbacks to him in coffin- (at [place]) - pt had prn of ativan and had prn haldol already- wanting more redirected patient to her room and avoid tumolt of other triggering patients on unit- Medication Compliance: Yes Side effects from medications: No Attending Groups: Intermittent Review of Systems Acute medical concerns: No Medical Review of Systems: unchanged Mental Status Exam Mental Status Exam Patient Appearance: Disheveled and Unkempt Patient Orientation: Person, Place, Time and Situation Level of Consciousness: Awake Patient Behavior: Appropriate, Dependent, Passive and Good Eye Contact Mood Description: Anxious Affect Description: Blunted Patient Cognition Impaired: No Ability to Follow Directions: Fair Speech Pattern: Clear Hallucinations: Auditory and Visual (more like flashbacks) Thought Process: Intact and Goal Oriented Thought Content: positive for Suicidal Ideation Depressive Symptoms: Increased Anxiety, Muscle Tension, Isolating-Friends/Family, Unhappiness, Thoughts of /Suicide and Difficulty Concentrating Judgement: Fair Diagnostics Vital Signs (24Hr): Vital Signs - 24 hr 08/18/24 10:25 08/18/24 20:09 Temperature 97.2 F 98.1 F Pulse Rate 87 93 Respiratory Rate 16 Blood Pressure 127/79 121/70 Pulse Oximetry 98 96 Oxygen Delivery Method Room Air Room Air BMI result Body Mass Index 31.9 Labs 08/16/24 21:21 08/17/24 19:01 Labs: Laboratory Results - last 48 hr 08/16/24 08/17/24 08/17/24 21:21 19:01 19:03 Hold Purple Top SEE NOTE Sodium 139 Potassium 3.6 Chloride 109 H Carbon Dioxide 23 Anion Gap 11 L BUN 7 L Creatinine 0.80 Estim Creat Clear Calc 96.5 Estimated GFR > 60 Random Glucose 83 Calcium 8.9 Total Bilirubin 0.2 AST 15 ALT 12 Alkaline Phosphatase 55 Total Protein 6.8 Albumin 4.0 Triglycerides Cholesterol LDL Cholesterol, Calc HDL Cholesterol [place] Ethyl Alcohol < 10 08/18/24 11:19 Hold Purple Top Sodium Potassium Chloride Carbon Dioxide Anion Gap BUN Creatinine Estim Creat Clear Calc Estimated GFR Random Glucose Calcium Total Bilirubin AST ALT Alkaline Phosphatase Total Protein Albumin Triglycerides 87 Cholesterol 153 LDL Cholesterol, Calc 89 HDL Cholesterol 47 [place] 0.84 Ethyl Alcohol Medications Medications Current Medications Acetaminophen (Acetaminophen 325 Mg Tablet) 650 mg PO Q6H PRN PRN Reason: Headache/Pain Mild Scale (1-3) Last Admin: 08/18/24 11:49 Dose: 650 mg Al Hydroxide/Mg Hydroxide (Magnesium Hydrox/Alum Hydrox 30 Ml Oral.Susp) 30 ml PO Q6H PRN PRN Reason: Heartburn/Nausea Albuterol Sulfate (Albuterol Sulfate 90 Mcg 8 Gm Inhaler) 2 puff INHALE RQID PRN PRN Reason: wheezing Benztropine Mesylate (Benztropine Mesylate 0.5 Mg Tablet) 0.5 mg PO BID [facility] Last Admin: 08/18/24 20:56 Dose: 0.5 mg Bupropion HCl (Bupropion Hcl Xl 150 Mg Tab.Er.24h) 150 mg PO DAILY [facility] Last Admin: 08/18/24 10:28 Dose: 150 mg Calcium Carbonate/Cholecalciferol (Calcium + Vitamin D 250 Mg Tablet) 1 mg PO BID [facility] Last Admin: 08/18/24 21:10 Dose: Not Given Clonidine HCl (Clonidine Hcl 0.1 Mg Tablet) 0.1 mg PO TID [facility]; Protocol Last Admin: 08/18/24 20:56 Dose: 0.1 mg Diphenhydramine HCl (Diphenhydramine Hcl 25 Mg Capsule) 100 mg PO BEDTIME [facility] Last Admin: 08/18/24 20:57 Dose: 100 mg Duloxetine HCl (Duloxetine Hcl 60 Mg Capsule.Dr) 60 mg PO DAILY [facility] Last Admin: 08/18/24 10:27 Dose: 60 mg Fluticasone Propionate (Fluticasone Propionate Nasal 16 Gm [place]) 2 spray NOSTRIL-B DAILY [facility] Last Admin: 08/18/24 17:00 Dose: Not Given Fluticasone/Vilanterol (Fluticasone/Vilanterol 200/25 Blst.W.Dev) 1 puff INHALE RDAILY [facility] Last Admin: 08/18/24 17:00 Dose: Not Given Haloperidol (Haloperidol 5 Mg Tablet) 5 mg PO TID [facility] Last Admin: 08/18/24 20:58 Dose: 5 mg Haloperidol Decanoate (Haloperidol Decanoate 50 Mg/Ml Vial) 75 mg IM Q28D [facility] Ibuprofen (Ibuprofen 600 Mg Tablet) 600 mg PO TID PRN PRN Reason: arthritis Lactulose (Lactulose 20 Gm/30 Ml Solution) 30 gm PO DAILY PRN PRN Reason: Constipation Last Admin: 08/18/24 10:56 Dose: 30 gm [place] Carbonate ([place] Carbonate 300 Mg Capsule) 300 mg PO BID [facility] Last Admin: 08/18/24 20:56 Dose: 300 mg Loratadine (Loratadine 10 Mg Tablet) 10 mg PO DAILY [facility] Last Admin: 08/18/24 10:28 Dose: 10 mg Lorazepam (Lorazepam 1 Mg Tablet) 1 mg PO TID PRN PRN Reason: anxiety/agitation Last Admin: 08/18/24 22:02 Dose: 1 mg Magnesium Hydroxide (Milk Of Magnesia 30 Ml Oral.Susp) 30 ml PO DAILY PRN PRN Reason: Constipation Last Admin: 08/17/24 19:32 Dose: 30 ml Multivitamins/Vitamin C (Multivitamin Tablet) 1 tab PO DAILY [facility] Last Admin: 08/18/24 10:28 Dose: 1 tab Omeprazole (Omeprazole 20 Mg Capsule.Dr) 20 mg PO Q48H [facility] Last Admin: 08/18/24 06:26 Dose: 20 mg Polyethylene Glycol (Polyethylene Glycol 3350 17 Gm Powd.Pack) 17 gm PO DAILY PRN PRN Reason: Constipation Last Admin: 08/18/24 21:25 Dose: 17 gm Prazosin HCl (Prazosin Hcl 1 Mg Capsule) 1 mg PO BEDTIME [facility]; Protocol Last Admin: 08/18/24 20:58 Dose: 1 mg Prazosin HCl (Prazosin Hcl 5 Mg Capsule) 15 mg PO BEDTIME [facility]; Protocol Last Admin: 08/18/24 20:58 Dose: 15 mg Trazodone HCl (Trazodone Hcl 100 Mg Tablet) 200 mg PO BEDTIME [facility] Last Admin: 08/18/24 20:58 Dose: 200 mg Trazodone HCl (Trazodone Hcl 50 Mg Tablet) 50 mg PO BEDTIME [facility] PRN PRN Reason: Insomnia Last Admin: 08/19/24 00:30 Dose: 50 mg Vitamin D (Cholecalciferol (Vitamin D3) 25 Mcg Tablet) 25 mcg PO DAILY [facility] Last Admin: 08/18/24 10:28 Dose: 25 mcg Zolpidem Tartrate (Zolpidem Tartrate 5 Mg Tablet) 5 mg PO BEDTIME [facility] Last Admin: 08/18/24 20:56 Dose: 5 mg Allergies Allergies Allergy/AdvReac Type Severity Reaction Status Date / Time carbamazepine [From TEGRETOL] AdvReac Mild Nausea and Verified 08/16/24 20:32 Vomiting topiramate [From Topamax] AdvReac Mild Nausea and Verified 08/16/24 20:32 Vomiting cheese AdvReac Nausea and Verified 08/16/24 20:32 Vomiting Assessment & Plan Assessment & Plan (1) MDD (major depressive disorder), recurrent, severe, with psychosis: Status: Acute Code(s): F33.3 - Major depressive disorder, recurrent, severe with psychotic symptoms (2) Chronic post-traumatic stress disorder (PTSD): Status: Chronic Code(s): F43.12 - Post-traumatic stress disorder, chronic (3) Borderline personality disorder: Status: Chronic Code(s): F60.3 - Borderline personality disorder Plan continue outpt regimen. continue ECT next weds if still inpatient. continue CO for safety. Patient educated on: medication risk/benefits and therapeutic strategies Informed Consent: understands Reason for continued inpatient stay Substantial Risk for: harm to self and rapid decompensation Time Spent With Patient Time: Total time managing care of this patient today ____ minutes.
--- NOTE | 2024-08-19 10:47 | PC.NURSE ---
I noted pt's qtc was 581 on 08/17/24 with no repeat ekg and nothing noted in MD manager floor notes since that time. Qtc was 410 in May so this is a significant change in addition to being elevated. Dr Binta Yost and Sam Rankin informed. repeat ekg ordered and pending. No am meds given pending ekg.
[2024-08-19] MEDS: Fluticasone/Vilanterol 200/25 BLST.W.DEV 1 PUFF INHALE (11:03)
[2024-08-19] MEDS: Fluticasone Propionate Nasal 16 GM SPRAY 2 SPRAY NOSTRIL-B (11:03)
[2024-08-19] MEDS: HaloperidoL 5 MG TABLET PO ×4 (11:04→22:10)
[2024-08-19] MEDS: DULoxetine HCl 60 MG CAPSULE.DR PO (11:04)
[2024-08-19] MEDS: Benztropine Mesylate 0.5 MG TABLET PO ×2 (11:04→22:11)
[2024-08-19] MEDS: buPROPion HCl XL 150 MG TAB.ER.24H PO (11:04)
[2024-08-19] MEDS: Loratadine 10 MG TABLET PO (11:05)
[2024-08-19] MEDS: cloNIDine HCL 0.1 MG TABLET PO ×3 (11:05→22:10)
[2024-08-19] MEDS: LORazepam 1 MG TABLET PO ×2 (11:31→15:45)
[2024-08-19] MEDS: Lithium Carbonate 300 MG CAPSULE PO ×2 (12:51→22:10)
[2024-08-19 15:45] VITALS: BP 126/78
[2024-08-19] MEDS: Ibuprofen 600 MG TABLET PO ×2 (16:33→22:25)
[2024-08-19] MEDS: OLANZapine 10 MG VIAL IM (21:28)
[2024-08-19] MEDS: LORazepam 2 MG/ML VIAL 1 MG IM (21:29)
[2024-08-19 22:06] VITALS: BP 118/68; PULSE 78; TEMP 36.6; O2SAT 97
[2024-08-19] MEDS: diphenhydrAMINE HCL 25 MG CAPSULE 100 MG PO (22:10)
[2024-08-19] MEDS: Zolpidem Tartrate 5 MG TABLET PO (22:11)
[2024-08-19] MEDS: traZODone HCL 100 MG TABLET 200 MG PO (22:11)
[2024-08-19] MEDS: Prazosin HCL 5 MG CAPSULE 15 MG PO (22:11)
[2024-08-19] MEDS: Prazosin HCL 1 MG CAPSULE PO (22:11)
[2024-08-20] MEDS: HaloperidoL 5 MG TABLET PO ×5 (01:35→20:19)
[2024-08-20] MEDS: LORazepam 1 MG TABLET PO ×4 (01:35→20:18)
[2024-08-20] MEDS: Omeprazole 20 MG CAPSULE.DR PO (07:14)
[2024-08-20 07:58] VITALS: BP 100/62; PULSE 70; RESP 14; TEMP 36.7; O2SAT 95
[2024-08-20] MEDS: Fluticasone Propionate Nasal 16 GM SPRAY 2 SPRAY NOSTRIL-B (09:40)
[2024-08-20] MEDS: Fluticasone/Vilanterol 200/25 BLST.W.DEV 1 PUFF INHALE (09:40)
[2024-08-20] MEDS: Lithium Carbonate 300 MG CAPSULE PO ×2 (09:41→20:19)
[2024-08-20] MEDS: cloNIDine HCL 0.1 MG TABLET PO ×3 (09:41→20:18)
[2024-08-20] MEDS: buPROPion HCl XL 150 MG TAB.ER.24H PO (09:41)
[2024-08-20] MEDS: Loratadine 10 MG TABLET PO (09:41)
[2024-08-20] MEDS: DULoxetine HCl 60 MG CAPSULE.DR PO (09:41)
[2024-08-20] MEDS: Benztropine Mesylate 0.5 MG TABLET PO ×2 (09:41→20:19)
[2024-08-20] MEDS: Ibuprofen 600 MG TABLET PO (10:47)
--- NOTE | 2024-08-20 12:11 | HO.PSYCHPN ---
Subjective Subjective Date of Service: 08/20/24 Reason For Visit: SI Subjective Notes: Conditional Voluntary Healthcare Proxy: No Guardianship: No Medical Problems Affecting Mental Status: No Interim History: 39 yo with depression, bpd, with co ah and flashbacks to dad in [place]- having recently during holidays- looking forward to ECT which helped her in past- her family has been telling her she needed it Went on to banging her head repeatedly in bathroom after meeting with provider- aggressive incident between 2 patients on unit earlier triggering to patient- advised to stay out of common area when labile patient around- as triggers her- Medication Compliance: Yes Side effects from medications: No Attending Groups: Yes Review of Systems Acute medical concerns: No Medical Review of Systems: unchanged Mental Status Exam Mental Status Exam Patient Appearance: Appropriate Patient Orientation: Person, Place, Time and Situation Level of Consciousness: Awake Patient Behavior: Dependent, Passive and Good Eye Contact Mood Description: Sad Affect Description: Blunted Patient Cognition Impaired: No Ability to Follow Directions: Fair Speech Pattern: Clear Hallucinations: Auditory and Visual Delusions: Not Present Thought Process: Intact and Goal Oriented Thought Content: positive for Intact and positive for Perseveration Depressive Symptoms: Increased Anxiety, Muscle Tension, Hopelessness and Thoughts of /Suicide Judgement: Poor Judgement and Insight: sib head banging Diagnostics Vital Signs (24Hr): Vital Signs - 24 hr 08/19/24 15:45 08/19/24 22:06 08/20/24 07:58 Temperature 97.9 F 98.1 F Pulse Rate 78 70 Respiratory Rate 14 Blood Pressure 126/78 118/68 100/62 Pulse Oximetry 97 95 Oxygen Delivery Method Room Air Room Air BMI result Body Mass Index 31.9 Labs 08/16/24 21:21 08/17/24 19:01 Medications Medications Current Medications Acetaminophen (Acetaminophen 325 Mg Tablet) 650 mg PO Q6H PRN PRN Reason: Headache/Pain Mild Scale (1-3) Last Admin: 08/18/24 11:49 Dose: 650 mg Al Hydroxide/Mg Hydroxide (Magnesium Hydrox/Alum Hydrox 30 Ml Oral.Susp) 30 ml PO Q6H PRN PRN Reason: Heartburn/Nausea Albuterol Sulfate (Albuterol Sulfate 90 Mcg 8 Gm Inhaler) 2 puff INHALE RQID PRN PRN Reason: wheezing Benztropine Mesylate (Benztropine Mesylate 0.5 Mg Tablet) 0.5 mg PO BID [facility] Last Admin: 08/20/24 09:41 Dose: 0.5 mg Bupropion HCl (Bupropion Hcl Xl 150 Mg Tab.Er.24h) 150 mg PO DAILY [facility] Last Admin: 08/20/24 09:41 Dose: 150 mg Calcium Carbonate/Cholecalciferol (Calcium + Vitamin D 250 Mg Tablet) 250 mg PO BID [facility] Last Admin: 08/20/24 09:43 Dose: Not Given Clonidine HCl (Clonidine Hcl 0.1 Mg Tablet) 0.1 mg PO TID [facility]; Protocol Last Admin: 08/20/24 09:41 Dose: 0.1 mg Diphenhydramine HCl (Diphenhydramine Hcl 25 Mg Capsule) 100 mg PO BEDTIME [facility] Last Admin: 08/19/24 22:10 Dose: 100 mg Duloxetine HCl (Duloxetine Hcl 60 Mg Capsule.Dr) 60 mg PO DAILY [facility] Last Admin: 08/20/24 09:41 Dose: 60 mg Fluticasone Propionate (Fluticasone Propionate Nasal 16 Gm [place]) 2 spray NOSTRIL-B DAILY [facility] Last Admin: 08/20/24 09:40 Dose: 2 spray Fluticasone/Vilanterol (Fluticasone/Vilanterol 200/25 Blst.W.Dev) 1 puff INHALE RDAILY [facility] Last Admin: 08/20/24 09:40 Dose: 1 puff Haloperidol (Haloperidol 5 Mg Tablet) 5 mg PO TID [facility] Last Admin: 08/20/24 09:41 Dose: 5 mg Haloperidol (Haloperidol 5 Mg Tablet) 5 mg PO BID PRN PRN Reason: Psychosis Last Admin: 08/20/24 01:35 Dose: 5 mg Haloperidol Decanoate (Haloperidol Decanoate 50 Mg/Ml Vial) 75 mg IM Q28D [facility] Ibuprofen (Ibuprofen 600 Mg Tablet) 600 mg PO TID PRN PRN Reason: arthritis Last Admin: 08/20/24 10:47 Dose: 600 mg Lactulose (Lactulose 20 Gm/30 Ml Solution) 30 gm PO DAILY PRN PRN Reason: Constipation Last Admin: 08/18/24 10:56 Dose: 30 gm [place] Carbonate ([place] Carbonate 300 Mg Capsule) 300 mg PO BID [facility] Last Admin: 08/20/24 09:41 Dose: 300 mg Loratadine (Loratadine 10 Mg Tablet) 10 mg PO DAILY [facility] Last Admin: 08/20/24 09:41 Dose: 10 mg Lorazepam (Lorazepam 1 Mg Tablet) 1 mg PO TID PRN PRN Reason: anxiety/agitation Last Admin: 08/20/24 01:35 Dose: 1 mg Magnesium Hydroxide (Milk Of Magnesia 30 Ml Oral.Susp) 30 ml PO DAILY PRN PRN Reason: Constipation Last Admin: 08/17/24 19:32 Dose: 30 ml Multivitamins/Vitamin C (Multivitamin Tablet) 1 tab PO DAILY [facility] Last Admin: 08/20/24 09:43 Dose: Not Given Omeprazole (Omeprazole 20 Mg Capsule.Dr) 20 mg PO Q48H [facility] Last Admin: 08/20/24 07:14 Dose: 20 mg Polyethylene Glycol (Polyethylene Glycol 3350 17 Gm Powd.Pack) 17 gm PO DAILY PRN PRN Reason: Constipation Last Admin: 08/18/24 21:25 Dose: 17 gm Prazosin HCl (Prazosin Hcl 1 Mg Capsule) 1 mg PO BEDTIME [facility]; Protocol Last Admin: 08/19/24 22:11 Dose: 1 mg Prazosin HCl (Prazosin Hcl 5 Mg Capsule) 15 mg PO BEDTIME [facility]; Protocol Last Admin: 08/19/24 22:11 Dose: 15 mg Trazodone HCl (Trazodone Hcl 100 Mg Tablet) 200 mg PO BEDTIME [facility] Last Admin: 08/19/24 22:11 Dose: 200 mg Vitamin D (Cholecalciferol (Vitamin D3) 25 Mcg Tablet) 25 mcg PO DAILY [facility] Last Admin: 08/20/24 09:43 Dose: Not Given Zolpidem Tartrate (Zolpidem Tartrate 5 Mg Tablet) 5 mg PO BEDTIME [facility] Last Admin: 08/19/24 22:11 Dose: 5 mg Allergies Allergies Allergy/AdvReac Type Severity Reaction Status Date / Time carbamazepine [From TEGRETOL] AdvReac Mild Nausea and Verified 08/16/24 20:32 Vomiting topiramate [From Topamax] AdvReac Mild Nausea and Verified 08/16/24 20:32 Vomiting Assessment & Plan Assessment & Plan (1) MDD (major depressive disorder), recurrent, severe, with psychosis: Status: Acute Code(s): F33.3 - Major depressive disorder, recurrent, severe with psychotic symptoms (2) Chronic post-traumatic stress disorder (PTSD): Status: Chronic Code(s): F43.12 - Post-traumatic stress disorder, chronic (3) Borderline personality disorder: Status: Chronic Code(s): F60.3 - Borderline personality disorder Plan continue outpt regimen. continue ECT next weds if still inpatient. continue CO for safety. 08/20/24 patient looking foward to ECt as it helped in past Patient educated on: ECT and therapeutic strategies Informed Consent: understands and further education needed (re non sib strategies) Reason for continued inpatient stay Substantial Risk for: harm to self and rapid decompensation Time Spent With Patient Time: Total time managing care of this patient today ____ minutes.
--- NOTE | 2024-08-20 13:54 | PC.NURSE ---
Patient banging her head on the wall today. Crystal was easily redirected by staff. Patient endorsing increased anxiety. Ativan 1mg PO given at 1352.
[2024-08-20 14:47] VITALS: BP 126/91
[2024-08-20 19:46] VITALS: BP 121/77; PULSE 75; RESP 16; TEMP 36.8; O2SAT 96
[2024-08-20] MEDS: traZODone HCL 100 MG TABLET 200 MG PO (20:18)
[2024-08-20] MEDS: Calcium + Vitamin D 250 MG TABLET PO (20:18)
[2024-08-20] MEDS: diphenhydrAMINE HCL 25 MG CAPSULE 100 MG PO (20:18)
[2024-08-20] MEDS: Prazosin HCL 1 MG CAPSULE PO (20:18)
[2024-08-20] MEDS: Prazosin HCL 5 MG CAPSULE 15 MG PO (20:19)
[2024-08-20] MEDS: Zolpidem Tartrate 5 MG TABLET PO (20:19)
[2024-08-20] MEDS: OLANZapine 10 MG VIAL IM (22:08)
[2024-08-20] MEDS: LORazepam 2 MG/ML VIAL 1 MG IM (22:08)
--- NOTE | 2024-08-21 00:24 | PC.NURSE ---
Pt given 1mg Ativan at 2018. MD ribbon lap machine tender aware.
[2024-08-21] MEDS: HaloperidoL 5 MG TABLET PO ×5 (06:30→20:15)
[2024-08-21] MEDS: LORazepam 1 MG TABLET PO ×2 (06:30→23:20)
[2024-08-21] MEDS: Ibuprofen 600 MG TABLET PO ×2 (06:30→23:20)
[2024-08-21 07:47] VITALS: BP 131/91; PULSE 80; TEMP 36.4; O2SAT 98
[2024-08-21] MEDS: Fluticasone/Vilanterol 200/25 BLST.W.DEV 1 PUFF INHALE (08:56)
[2024-08-21] MEDS: Fluticasone Propionate Nasal 16 GM SPRAY 2 SPRAY NOSTRIL-B (08:56)
[2024-08-21 08:58] VITALS: BP 131/91
[2024-08-21] MEDS: buPROPion HCl XL 150 MG TAB.ER.24H PO (08:58)
[2024-08-21] MEDS: cloNIDine HCL 0.1 MG TABLET PO ×3 (08:58→20:13)
[2024-08-21] MEDS: Lithium Carbonate 300 MG CAPSULE PO ×2 (08:58→20:14)
[2024-08-21] MEDS: Calcium + Vitamin D 250 MG TABLET PO ×2 (08:58→20:15)
[2024-08-21] MEDS: DULoxetine HCl 60 MG CAPSULE.DR PO (08:58)
[2024-08-21] MEDS: Benztropine Mesylate 0.5 MG TABLET PO ×2 (08:58→20:16)
[2024-08-21] MEDS: Multivitamin TABLET 1 TAB PO (08:58)
[2024-08-21] MEDS: Cholecalciferol (Vitamin D3) 25 MCG TABLET PO (08:59)
[2024-08-21] MEDS: Loratadine 10 MG TABLET PO (08:59)
[2024-08-21] MEDS: LORazepam 2 MG/ML VIAL 1 MG IM ×2 (12:29→20:32)
[2024-08-21] MEDS: OLANZapine 10 MG VIAL 5 MG IM (12:30)
[2024-08-21 15:09] VITALS: BP 123/61
--- NOTE | 2024-08-21 15:20 | HO.PSYCHPN ---
Subjective Subjective Date of Service: 08/21/24 Reason For Visit: SI Interim History: upset to hear ECT bumped from to wed. swiftly exited interview room and returned to her bathroom where she began head banging. nursing staff intervened to prevent ongoing self-harm. per staff, required constant redirection over the weekend to prevent her from harming herself. Mental Status Exam Mental Status Exam Narrative: Pt is alert and oriented; behavior is cooperative and calm; dressed in casual attire with unkempt hair; eye contact appropriate; Speech is normal rate, volume and prosody and not pressured; no psychomotor agitation/retardation present; thought process is organized and goal directed; Thought content is on ECT; otherwise pertinent to relevant topics and without any delusional content, paranoid ideations or grandiosity; no HI/VH. no SI, more SIBI. some CAH to self-harm. Patients insight and judgment are fair. Diagnostics Vital Signs (24Hr): Vital Signs - 24 hr 08/20/24 19:46 08/21/24 07:47 08/21/24 08:58 Temperature 98.2 F 97.5 F Pulse Rate 75 80 Respiratory Rate 16 Blood Pressure 121/77 131/91 H 131/91 H Pulse Oximetry 96 98 Oxygen Delivery Method Room Air Room Air 08/21/24 15:09 Temperature Pulse Rate Respiratory Rate Blood Pressure 123/61 Pulse Oximetry Oxygen Delivery Method BMI result Body Mass Index 31.9 Labs 08/16/24 21:21 08/17/24 19:01 Medications Medications Current Medications Acetaminophen (Acetaminophen 325 Mg Tablet) 650 mg PO Q6H PRN PRN Reason: Headache/Pain Mild Scale (1-3) Last Admin: 08/18/24 11:49 Dose: 650 mg Al Hydroxide/Mg Hydroxide (Magnesium Hydrox/Alum Hydrox 30 Ml Oral.Susp) 30 ml PO Q6H PRN PRN Reason: Heartburn/Nausea Albuterol Sulfate (Albuterol Sulfate 90 Mcg 8 Gm Inhaler) 2 puff INHALE RQID PRN PRN Reason: wheezing Benztropine Mesylate (Benztropine Mesylate 0.5 Mg Tablet) 0.5 mg PO BID [facility] Last Admin: 08/21/24 08:58 Dose: 0.5 mg Bupropion HCl (Bupropion Hcl Xl 150 Mg Tab.Er.24h) 150 mg PO DAILY [facility] Last Admin: 08/21/24 08:58 Dose: 150 mg Calcium Carbonate/Cholecalciferol (Calcium + Vitamin D 250 Mg Tablet) 250 mg PO BID [facility] Last Admin: 08/21/24 08:58 Dose: 250 mg Clonidine HCl (Clonidine Hcl 0.1 Mg Tablet) 0.1 mg PO TID [facility]; Protocol Last Admin: 08/21/24 15:09 Dose: 0.1 mg Diphenhydramine HCl (Diphenhydramine Hcl 25 Mg Capsule) 100 mg PO BEDTIME [facility] Last Admin: 08/20/24 20:18 Dose: 100 mg Duloxetine HCl (Duloxetine Hcl 60 Mg Capsule.Dr) 60 mg PO DAILY [facility] Last Admin: 08/21/24 08:58 Dose: 60 mg Fluticasone Propionate (Fluticasone Propionate Nasal 16 Gm [place]) 2 spray NOSTRIL-B DAILY [facility] Last Admin: 08/21/24 08:56 Dose: 2 spray Fluticasone/Vilanterol (Fluticasone/Vilanterol 200/25 Blst.W.Dev) 1 puff INHALE RDAILY [facility] Last Admin: 08/21/24 08:56 Dose: 1 puff Haloperidol (Haloperidol 5 Mg Tablet) 5 mg PO TID [facility] Last Admin: 08/21/24 15:09 Dose: 5 mg Haloperidol (Haloperidol 5 Mg Tablet) 5 mg PO BID PRN PRN Reason: Psychosis Last Admin: 08/21/24 09:45 Dose: 5 mg Haloperidol Decanoate (Haloperidol Decanoate 50 Mg/Ml Vial) 75 mg IM Q28D [facility] Ibuprofen (Ibuprofen 600 Mg Tablet) 600 mg PO TID PRN PRN Reason: arthritis Last Admin: 08/21/24 06:30 Dose: 600 mg Lactulose (Lactulose 20 Gm/30 Ml Solution) 30 gm PO DAILY PRN PRN Reason: Constipation Last Admin: 08/18/24 10:56 Dose: 30 gm [place] Carbonate ([place] Carbonate 300 Mg Capsule) 300 mg PO BID [facility] Last Admin: 08/21/24 08:58 Dose: 300 mg Loratadine (Loratadine 10 Mg Tablet) 10 mg PO DAILY [facility] Last Admin: 08/21/24 08:59 Dose: 10 mg Lorazepam (Lorazepam 1 Mg Tablet) 1 mg PO TID PRN PRN Reason: anxiety/agitation Last Admin: 08/21/24 06:30 Dose: 1 mg Magnesium Hydroxide (Milk Of Magnesia 30 Ml Oral.Susp) 30 ml PO DAILY PRN PRN Reason: Constipation Last Admin: 08/17/24 19:32 Dose: 30 ml Multivitamins/Vitamin C (Multivitamin Tablet) 1 tab PO DAILY [facility] Last Admin: 08/21/24 08:58 Dose: 1 tab Nicotine Polacrilex (Nicotine Polacrilex 2 Mg Gum) 2 mg [place] Q1H PRN PRN Reason: Nicotine Cravings Omeprazole (Omeprazole 20 Mg Capsule.Dr) 20 mg PO Q48H [facility] Last Admin: 08/20/24 07:14 Dose: 20 mg Polyethylene Glycol (Polyethylene Glycol 3350 17 Gm Powd.Pack) 17 gm PO DAILY PRN PRN Reason: Constipation Last Admin: 08/18/24 21:25 Dose: 17 gm Prazosin HCl (Prazosin Hcl 1 Mg Capsule) 1 mg PO BEDTIME [facility]; Protocol Last Admin: 08/20/24 20:18 Dose: 1 mg Prazosin HCl (Prazosin Hcl 5 Mg Capsule) 15 mg PO BEDTIME [facility]; Protocol Last Admin: 08/20/24 20:19 Dose: 15 mg Trazodone HCl (Trazodone Hcl 100 Mg Tablet) 200 mg PO BEDTIME [facility] Last Admin: 08/20/24 20:18 Dose: 200 mg Vitamin D (Cholecalciferol (Vitamin D3) 25 Mcg Tablet) 25 mcg PO DAILY [facility] Last Admin: 08/21/24 08:59 Dose: 25 mcg Zolpidem Tartrate (Zolpidem Tartrate 5 Mg Tablet) 5 mg PO BEDTIME [facility] Last Admin: 08/20/24 20:19 Dose: 5 mg Allergies Allergies Allergy/AdvReac Type Severity Reaction Status Date / Time carbamazepine [From TEGRETOL] AdvReac Mild Nausea and Verified 08/16/24 20:32 Vomiting topiramate [From Topamax] AdvReac Mild Nausea and Verified 08/16/24 20:32 Vomiting Assessment & Plan Assessment & Plan (1) MDD (major depressive disorder), recurrent, severe, with psychosis: Status: Acute Code(s): F33.3 - Major depressive disorder, recurrent, severe with psychotic symptoms (2) Chronic post-traumatic stress disorder (PTSD): Status: Chronic Code(s): F43.12 - Post-traumatic stress disorder, chronic (3) Borderline personality disorder: Status: Chronic Code(s): F60.3 - Borderline personality disorder Plan continue outpt regimen. continue ECT next weds if still inpatient. continue CO for safety. 08/20/24 patient looking foward to ECt as it helped in past 08/21: upset ECT bumped from wed to wednesday. accusing staff of not caring about her. head-banging after being made aware. Reason for continued inpatient stay Substantial Risk for: harm to self Time Spent With Patient Time: Total time managing care of this patient today _25___ minutes.
[2024-08-21] MEDS: Lactulose 20 GM/30 ML SOLUTION 30 GM PO (16:04)
[2024-08-21] MEDS: Magnesium Hydrox/Alum Hydrox 30 ML ORAL.SUSP PO (19:21)
[2024-08-21 20:00] VITALS: BP 132/81; PULSE 104; RESP 16; TEMP 37.1; O2SAT 98
[2024-08-21 20:13] VITALS: BP 132/81
[2024-08-21] MEDS: traZODone HCL 100 MG TABLET 200 MG PO (20:14)
[2024-08-21] MEDS: diphenhydrAMINE HCL 25 MG CAPSULE 100 MG PO (20:14)
[2024-08-21 20:15] VITALS: BP 132/81
[2024-08-21] MEDS: Prazosin HCL 1 MG CAPSULE PO (20:15)
[2024-08-21] MEDS: Prazosin HCL 5 MG CAPSULE 15 MG PO (20:15)
[2024-08-21] MEDS: Zolpidem Tartrate 5 MG TABLET PO (20:15)
[2024-08-21] MEDS: OLANZapine 10 MG VIAL IM (20:31)
[2024-08-21] MEDS: Acetaminophen 325 MG TABLET 650 MG PO (20:39)
[2024-08-22] MEDS: HaloperidoL 5 MG TABLET PO ×4 (04:26→20:13)
--- NOTE | 2024-08-22 05:53 | PC.NURSE ---
Patient asked for IM Ativan and Olanzapine because she said the IM works faster. Order obtained and IM's given with positive effect.
[2024-08-22] MEDS: Omeprazole 20 MG CAPSULE.DR PO (07:14)
[2024-08-22 08:00] VITALS: BP 149/74; PULSE 79; RESP 16; TEMP 36; O2SAT 97
[2024-08-22 08:45] VITALS: BP 149/74
[2024-08-22] MEDS: Loratadine 10 MG TABLET PO (08:45)
[2024-08-22] MEDS: cloNIDine HCL 0.1 MG TABLET PO ×3 (08:45→20:13)
[2024-08-22] MEDS: DULoxetine HCl 60 MG CAPSULE.DR PO (08:46)
[2024-08-22] MEDS: Benztropine Mesylate 0.5 MG TABLET PO ×2 (08:46→20:14)
[2024-08-22] MEDS: buPROPion HCl XL 150 MG TAB.ER.24H PO (08:47)
[2024-08-22] MEDS: Lithium Carbonate 300 MG CAPSULE PO ×2 (08:47→20:14)
[2024-08-22] MEDS: Fluticasone/Vilanterol 200/25 BLST.W.DEV 1 PUFF INHALE (08:49)
[2024-08-22] MEDS: Fluticasone Propionate Nasal 16 GM SPRAY 2 SPRAY NOSTRIL-B (08:49)
[2024-08-22] MEDS: Ibuprofen 600 MG TABLET PO (11:02)
--- NOTE | 2024-08-22 13:15 | P.PNPSI_ITS ---
Subjective Subjective Date of Service: 08/22/24 Reason For Visit: SI Interim History: calm, cooperative. appears down. c/o constipation. informed of orders for enema and KUB. no other complaints or requests. per staff, +SI. +AH. +meds. brief head-banging yesterday, got IMs at her request x 2 yesterday. slept about 6 hours, disrupted. c/o constipation. Mental Status Exam Mental Status Exam Narrative: Pt is alert and oriented; behavior is cooperative and calm; dressed in casual attire with unkempt hair; eye contact appropriate; Speech is normal rate, volume and prosody and not pressured; no psychomotor agitation/retardation present; thought process is organized and goal directed; Thought content is on constipation; otherwise pertinent to relevant topics and without any delusional content, paranoid ideations or grandiosity; no HI/VH. no SI, more SIBI. some CAH to self-harm. Patients insight and judgment are fair. Diagnostics Vital Signs (24Hr): Vital Signs - 24 hr 08/21/24 15:09 08/21/24 20:00 08/21/24 20:13 Temperature 98.7 F Pulse Rate 104 H Respiratory Rate 16 Blood Pressure 123/61 132/81 132/81 Pulse Oximetry 98 Oxygen Delivery Method 08/21/24 20:15 08/21/24 20:15 08/22/24 08:00 Temperature 96.8 F Pulse Rate 79 Respiratory Rate 16 Blood Pressure 132/81 132/81 149/74 H Pulse Oximetry 97 Oxygen Delivery Method Room Air 08/22/24 08:45 Temperature Pulse Rate Respiratory Rate Blood Pressure 149/74 H Pulse Oximetry Oxygen Delivery Method BMI result Body Mass Index 31.9 Labs 08/16/24 21:21 08/17/24 19:01 Imaging Radiology Impressions: ITS Impressions KUB X-Ray 08/22/24 11:41 IMPRESSION: Mild constipation. Electronically signed by: Bry Cox MD 08/22/2024 12:00 PM [facility] Medications Medications Current Medications Acetaminophen (Acetaminophen 325 Mg Tablet) 650 mg PO Q6H PRN PRN Reason: Headache/Pain Mild Scale (1-3) Last Admin: 08/21/24 20:39 Dose: 650 mg Al Hydroxide/Mg Hydroxide (Magnesium Hydrox/Alum Hydrox 30 Ml Oral.Susp) 30 ml PO Q6H PRN PRN Reason: Heartburn/Nausea Last Admin: 08/21/24 19:21 Dose: 30 ml Albuterol Sulfate (Albuterol Sulfate 90 Mcg 8 Gm Inhaler) 2 puff INHALE RQID PRN PRN Reason: wheezing Benztropine Mesylate (Benztropine Mesylate 0.5 Mg Tablet) 0.5 mg PO BID [facility] Last Admin: 08/22/24 08:46 Dose: 0.5 mg Bupropion HCl (Bupropion Hcl Xl 150 Mg Tab.Er.24h) 150 mg PO DAILY [facility] Last Admin: 08/22/24 08:47 Dose: 150 mg Calcium Carbonate/Cholecalciferol (Calcium + Vitamin D 250 Mg Tablet) 250 mg PO BID [facility] Last Admin: 08/22/24 08:50 Dose: Not Given Clonidine HCl (Clonidine Hcl 0.1 Mg Tablet) 0.1 mg PO TID [facility]; Protocol Last Admin: 08/22/24 08:45 Dose: 0.1 mg Diphenhydramine HCl (Diphenhydramine Hcl 25 Mg Capsule) 100 mg PO BEDTIME [facility] Last Admin: 08/21/24 20:14 Dose: 100 mg Duloxetine HCl (Duloxetine Hcl 60 Mg Capsule.Dr) 60 mg PO DAILY [facility] Last Admin: 08/22/24 08:46 Dose: 60 mg Fluticasone Propionate (Fluticasone Propionate Nasal 16 Gm [place]) 2 spray NOSTRIL-B DAILY [facility] Last Admin: 08/22/24 08:49 Dose: 2 spray Fluticasone/Vilanterol (Fluticasone/Vilanterol 200/25 Blst.W.Dev) 1 puff INHALE RDAILY [facility] Last Admin: 08/22/24 08:49 Dose: 1 puff Haloperidol (Haloperidol 5 Mg Tablet) 5 mg PO TID [facility] Last Admin: 08/22/24 08:46 Dose: 5 mg Haloperidol (Haloperidol 5 Mg Tablet) 5 mg PO BID PRN PRN Reason: Psychosis Last Admin: 08/22/24 04:26 Dose: 5 mg Haloperidol Decanoate (Haloperidol Decanoate 50 Mg/Ml Vial) 75 mg IM Q28D [facility] Ibuprofen (Ibuprofen 600 Mg Tablet) 600 mg PO TID PRN PRN Reason: arthritis Last Admin: 08/22/24 11:02 Dose: 600 mg Lactulose (Lactulose 20 Gm/30 Ml Solution) 30 gm PO DAILY PRN PRN Reason: Constipation Last Admin: 08/21/24 16:04 Dose: 30 gm [place] Carbonate ([place] Carbonate 300 Mg Capsule) 300 mg PO BID [facility] Last Admin: 08/22/24 08:47 Dose: 300 mg Loratadine (Loratadine 10 Mg Tablet) 10 mg PO DAILY [facility] Last Admin: 08/22/24 08:45 Dose: 10 mg Lorazepam (Lorazepam 1 Mg Tablet) 1 mg PO TID PRN PRN Reason: anxiety/agitation Last Admin: 08/21/24 23:20 Dose: 1 mg Magnesium Hydroxide (Milk Of Magnesia 30 Ml Oral.Susp) 30 ml PO DAILY PRN PRN Reason: Constipation Last Admin: 08/17/24 19:32 Dose: 30 ml Multivitamins/Vitamin C (Multivitamin Tablet) 1 tab PO DAILY [facility] Last Admin: 08/22/24 08:51 Dose: Not Given Nicotine Polacrilex (Nicotine Polacrilex 2 Mg Gum) 2 mg BUCCAL Q1H PRN PRN Reason: Nicotine Cravings Omeprazole (Omeprazole 20 Mg Capsule.Dr) 20 mg PO Q48H [facility] Last Admin: 08/22/24 07:14 Dose: 20 mg Polyethylene Glycol (Polyethylene Glycol 3350 17 Gm Powd.Pack) 17 gm PO DAILY PRN PRN Reason: Constipation Last Admin: 08/18/24 21:25 Dose: 17 gm Prazosin HCl (Prazosin Hcl 1 Mg Capsule) 1 mg PO BEDTIME [facility]; Protocol Last Admin: 08/21/24 20:15 Dose: 1 mg Prazosin HCl (Prazosin Hcl 5 Mg Capsule) 15 mg PO BEDTIME [facility]; Protocol Last Admin: 08/21/24 20:15 Dose: 15 mg Sodium Biphosphate/Sodium Phosphate (Sodium Phosphate,[place]-Dibasic 133 Ml Enema) 133 ml [place] ONCE PRN PRN Reason: constipation Sodium Biphosphate/Sodium Phosphate (Sodium Phosphate,[place]-Dibasic 133 Ml Enema) 133 ml [place] DAILY PRN PRN Reason: Constipation Trazodone HCl (Trazodone Hcl 100 Mg Tablet) 200 mg PO BEDTIME [facility] Last Admin: 08/21/24 20:14 Dose: 200 mg Vitamin D (Cholecalciferol (Vitamin D3) 25 Mcg Tablet) 25 mcg PO DAILY [facility] Last Admin: 08/22/24 08:50 Dose: Not Given Zolpidem Tartrate (Zolpidem Tartrate 5 Mg Tablet) 5 mg PO BEDTIME [facility] Last Admin: 08/21/24 20:15 Dose: 5 mg Allergies Allergies Allergy/AdvReac Type Severity Reaction Status Date / Time carbamazepine [From TEGRETOL] AdvReac Mild Nausea and Verified 08/16/24 20:32 Vomiting topiramate [From Topamax] AdvReac Mild Nausea and Verified 08/16/24 20:32 Vomiting Assessment & Plan Assessment & Plan (1) MDD (major depressive disorder), recurrent, severe, with psychosis: Status: Acute Code(s): F33.3 - Major depressive disorder, recurrent, severe with psychotic symptoms (2) Chronic post-traumatic stress disorder (PTSD): Status: Chronic Code(s): F43.12 - Post-traumatic stress disorder, chronic (3) Borderline personality disorder: Status: Chronic Code(s): F60.3 - Borderline personality disorder Plan continue outpt regimen. continue ECT next if still inpatient. continue CO for safety. 08/20/24 patient looking foward to ECt as it helped in past 08/21: upset ECT bumped from wed to wednesday. accusing staff of not caring about her. head-banging after being made aware. 08/22: calm today. c/o constipation. KUB and enema ordered. awaiting ECT wednesday. no complaints or requests otherwise. Reason for continued inpatient stay Substantial Risk for: harm to self Time Spent With Patient Time: Total time managing care of this patient today __25__ minutes.
[2024-08-22] MEDS: LORazepam 1 MG TABLET PO ×2 (13:16→20:19)
[2024-08-22] MEDS: LORazepam 2 MG/ML VIAL 1 MG IM (14:12)
[2024-08-22] MEDS: OLANZapine 10 MG VIAL 5 MG IM ×2 (14:13→21:46)
[2024-08-22 14:34] VITALS: BP 135/77
[2024-08-22] MEDS: Sodium Phosphate,Mono-Dibasic 133 ML ENEMA PR (15:17)
--- NOTE | 2024-08-22 15:19 | PC.NURSE ---
At 1400 Pt was head-banging and hitting herself in the head with her hand. Pt stated I just want to , everyone would be better off. Pt did respond to verbal de-escalation and deep breathing techniques. Per pt request pt received IM Ativan and Zyprexa at 1412 w/ good effect
[2024-08-22 20:00] VITALS: BP 138/78; PULSE 88; RESP 18; TEMP 36.6; O2SAT 97
[2024-08-22] MEDS: diphenhydrAMINE HCL 25 MG CAPSULE 100 MG PO (20:12)
[2024-08-22] MEDS: Zolpidem Tartrate 5 MG TABLET PO (20:12)
[2024-08-22] MEDS: Calcium + Vitamin D 250 MG TABLET PO (20:13)
[2024-08-22] MEDS: traZODone HCL 100 MG TABLET 200 MG PO (20:13)
[2024-08-22] MEDS: Prazosin HCL 1 MG CAPSULE PO (20:14)
[2024-08-22] MEDS: Prazosin HCL 5 MG CAPSULE 15 MG PO (20:14)
[2024-08-23 08:00] VITALS: BP 131/85; PULSE 98; RESP 14; TEMP 36.2; O2SAT 97
[2024-08-23] MEDS: buPROPion HCl XL 150 MG TAB.ER.24H PO (08:39)
[2024-08-23] MEDS: Loratadine 10 MG TABLET PO (08:40)
[2024-08-23] MEDS: Benztropine Mesylate 0.5 MG TABLET PO ×2 (08:40→21:38)
[2024-08-23] MEDS: Lithium Carbonate 300 MG CAPSULE PO ×2 (08:40→21:38)
[2024-08-23] MEDS: cloNIDine HCL 0.1 MG TABLET PO ×3 (08:41→21:43)
[2024-08-23] MEDS: DULoxetine HCl 60 MG CAPSULE.DR PO (08:41)
[2024-08-23] MEDS: Calcium + Vitamin D 250 MG TABLET PO ×2 (08:44→21:38)
[2024-08-23] MEDS: Cholecalciferol (Vitamin D3) 25 MCG TABLET PO (08:44)
[2024-08-23] MEDS: Fluticasone/Vilanterol 200/25 BLST.W.DEV 1 PUFF INHALE (08:45)
[2024-08-23] MEDS: Fluticasone Propionate Nasal 16 GM SPRAY 2 SPRAY NOSTRIL-B (08:45)
[2024-08-23] MEDS: Multivitamin TABLET 1 TAB PO (08:45)
[2024-08-23] MEDS: HaloperidoL 5 MG TABLET PO ×4 (08:45→21:38)
[2024-08-23] MEDS: LORazepam 2 MG/ML VIAL 1 MG IM ×2 (09:36→16:26)
[2024-08-23] MEDS: OLANZapine 10 MG VIAL 5 MG IM ×3 (09:37→23:35)
[2024-08-23] MEDS: Lactulose 20 GM/30 ML SOLUTION 30 GM PO (11:34)
--- NOTE | 2024-08-23 12:55 | HO.PSYCHPN ---
Subjective Subjective Date of Service: 08/23/24 Reason For Visit: SI Interim History: sedated from IMs this morning. c/o continued constipation; agrees to lactulose today. informed of wednesday ECT time. per staff, had a small BM after enema yesterday. IMs yesterday x2. some head-banging. slept about 6 hours. per staff, c/o not liking her 1:1 staff and so asked for IMs this morning. Mental Status Exam Mental Status Exam Narrative: Pt is alert and oriented; behavior is cooperative and calm; dressed in casual attire with unkempt hair; eye contact appropriate; Speech is decr rate, volume and prosody and not pressured; no psychomotor agitation/retardation present; thought process is organized and goal directed; Thought content is on constipation; otherwise pertinent to relevant topics and without any delusional content, paranoid ideations or grandiosity; no SI/SIBI/HI/AVH expressed. Patients insight and judgment are fair. Diagnostics Vital Signs (24Hr): Vital Signs - 24 hr 08/22/24 14:34 08/22/24 20:00 08/23/24 08:00 Temperature 97.8 F 97.2 F Pulse Rate 88 98 Respiratory Rate 18 14 Blood Pressure 135/77 138/78 131/85 Pulse Oximetry 97 97 Oxygen Delivery Method Room Air Room Air BMI result Body Mass Index 31.9 Labs 08/16/24 21:21 08/17/24 19:01 Imaging Radiology Impressions: ITS Impressions KUB X-Ray 08/22/24 11:41 IMPRESSION: Mild constipation. Electronically signed by: Bry Cox MD 08/22/2024 12:00 PM [facility] Medications Medications Current Medications Acetaminophen (Acetaminophen 325 Mg Tablet) 650 mg PO Q6H PRN PRN Reason: Headache/Pain Mild Scale (1-3) Last Admin: 08/21/24 20:39 Dose: 650 mg Al Hydroxide/Mg Hydroxide (Magnesium Hydrox/Alum Hydrox 30 Ml Oral.Susp) 30 ml PO Q6H PRN PRN Reason: Heartburn/Nausea Last Admin: 08/21/24 19:21 Dose: 30 ml Albuterol Sulfate (Albuterol Sulfate 90 Mcg 8 Gm Inhaler) 2 puff INHALE RQID PRN PRN Reason: wheezing Benztropine Mesylate (Benztropine Mesylate 0.5 Mg Tablet) 0.5 mg PO BID [facility] Last Admin: 08/23/24 08:40 Dose: 0.5 mg Bupropion HCl (Bupropion Hcl Xl 150 Mg Tab.Er.24h) 150 mg PO DAILY [facility] Last Admin: 08/23/24 08:39 Dose: 150 mg Calcium Carbonate/Cholecalciferol (Calcium + Vitamin D 250 Mg Tablet) 250 mg PO BID [facility] Last Admin: 08/23/24 08:44 Dose: 250 mg Clonidine HCl (Clonidine Hcl 0.1 Mg Tablet) 0.1 mg PO TID [facility]; Protocol Last Admin: 08/23/24 08:41 Dose: 0.1 mg Diphenhydramine HCl (Diphenhydramine Hcl 25 Mg Capsule) 100 mg PO BEDTIME [facility] Last Admin: 08/22/24 20:12 Dose: 100 mg Duloxetine HCl (Duloxetine Hcl 60 Mg Capsule.Dr) 60 mg PO DAILY [facility] Last Admin: 08/23/24 08:41 Dose: 60 mg Fluticasone Propionate (Fluticasone Propionate Nasal 16 Gm [place]) 2 spray NOSTRIL-B DAILY [facility] Last Admin: 08/23/24 08:45 Dose: 2 spray Fluticasone/Vilanterol (Fluticasone/Vilanterol 200/25 Blst.W.Dev) 1 puff INHALE RDAILY [facility] Last Admin: 08/23/24 08:45 Dose: 1 puff Haloperidol (Haloperidol 5 Mg Tablet) 5 mg PO TID [facility] Last Admin: 08/23/24 08:45 Dose: 5 mg Haloperidol (Haloperidol 5 Mg Tablet) 5 mg PO BID PRN PRN Reason: Psychosis Last Admin: 08/23/24 12:06 Dose: 5 mg Haloperidol Decanoate (Haloperidol Decanoate 50 Mg/Ml Vial) 75 mg IM Q28D [facility] Ibuprofen (Ibuprofen 600 Mg Tablet) 600 mg PO TID PRN PRN Reason: arthritis Last Admin: 08/22/24 11:02 Dose: 600 mg Lactulose (Lactulose 20 Gm/30 Ml Solution) 30 gm PO DAILY PRN PRN Reason: Constipation Last Admin: 08/23/24 11:34 Dose: 30 gm [place] Carbonate ([place] Carbonate 300 Mg Capsule) 300 mg PO BID [facility] Last Admin: 08/23/24 08:40 Dose: 300 mg Loratadine (Loratadine 10 Mg Tablet) 10 mg PO DAILY [facility] Last Admin: 08/23/24 08:40 Dose: 10 mg Lorazepam (Lorazepam 1 Mg Tablet) 1 mg PO TID PRN PRN Reason: anxiety/agitation Last Admin: 08/22/24 20:19 Dose: 1 mg Magnesium Hydroxide (Milk Of Magnesia 30 Ml Oral.Susp) 30 ml PO DAILY PRN PRN Reason: Constipation Last Admin: 08/17/24 19:32 Dose: 30 ml Multivitamins/Vitamin C (Multivitamin Tablet) 1 tab PO DAILY [facility] Last Admin: 08/23/24 08:45 Dose: 1 tab Nicotine Polacrilex (Nicotine Polacrilex 2 Mg Gum) 2 mg BUCCAL Q1H PRN PRN Reason: Nicotine Cravings Omeprazole (Omeprazole 20 Mg Capsule.Dr) 20 mg PO Q48H [facility] Last Admin: 08/22/24 07:14 Dose: 20 mg Polyethylene Glycol (Polyethylene Glycol 3350 17 Gm Powd.Pack) 17 gm PO DAILY PRN PRN Reason: Constipation Last Admin: 08/18/24 21:25 Dose: 17 gm Prazosin HCl (Prazosin Hcl 1 Mg Capsule) 1 mg PO BEDTIME [facility]; Protocol Last Admin: 08/22/24 20:14 Dose: 1 mg Prazosin HCl (Prazosin Hcl 5 Mg Capsule) 15 mg PO BEDTIME [facility]; Protocol Last Admin: 08/22/24 20:14 Dose: 15 mg Sodium Biphosphate/Sodium Phosphate (Sodium Phosphate,[place]-Dibasic 133 Ml Enema) 133 ml [place] ONCE PRN PRN Reason: constipation Last Admin: 08/22/24 15:17 Dose: 133 ml Sodium Biphosphate/Sodium Phosphate (Sodium Phosphate,[place]-Dibasic 133 Ml Enema) 133 ml [place] DAILY PRN PRN Reason: Constipation Trazodone HCl (Trazodone Hcl 100 Mg Tablet) 200 mg PO BEDTIME [facility] Last Admin: 08/22/24 20:13 Dose: 200 mg Vitamin D (Cholecalciferol (Vitamin D3) 25 Mcg Tablet) 25 mcg PO DAILY [facility] Last Admin: 08/23/24 08:44 Dose: 25 mcg Zolpidem Tartrate (Zolpidem Tartrate 5 Mg Tablet) 5 mg PO BEDTIME [facility] Last Admin: 08/22/24 20:12 Dose: 5 mg Allergies Allergies Allergy/AdvReac Type Severity Reaction Status Date / Time carbamazepine [From TEGRETOL] AdvReac Mild Nausea and Verified 08/16/24 20:32 Vomiting topiramate [From Topamax] AdvReac Mild Nausea and Verified 08/16/24 20:32 Vomiting Assessment & Plan Assessment & Plan (1) MDD (major depressive disorder), recurrent, severe, with psychosis: Status: Acute Code(s): F33.3 - Major depressive disorder, recurrent, severe with psychotic symptoms (2) Chronic post-traumatic stress disorder (PTSD): Status: Chronic Code(s): F43.12 - Post-traumatic stress disorder, chronic (3) Borderline personality disorder: Status: Chronic Code(s): F60.3 - Borderline personality disorder Plan continue outpt regimen. continue ECT next if still inpatient. continue CO for safety. 08/20/24 patient looking foward to ECt as it helped in past 08/21: upset ECT bumped from wed to wednesday. accusing staff of not caring about her. head-banging after being made aware. 08/22: calm today. c/o constipation. KUB and enema ordered. awaiting ECT wednesday. no complaints or requests otherwise. 08/23: got IMs this morning due to not liking her 1:1 and feeling upset about that. informed ECT at 0800 wednesday. will take lactulose for continued constipation; small BM yesterday post-enema. Reason for continued inpatient stay Substantial Risk for: harm to self and inability to function Time Spent With Patient Time: Total time managing care of this patient today _25___ minutes.
[2024-08-23 14:11] VITALS: BP 164/97
[2024-08-23] MEDS: LORazepam 1 MG TABLET PO ×2 (15:55→21:43)
[2024-08-23 21:04] VITALS: BP 121/74; PULSE 85; RESP 18; TEMP 36.4; O2SAT 95
[2024-08-23] MEDS: diphenhydrAMINE HCL 25 MG CAPSULE 100 MG PO (21:37)
[2024-08-23] MEDS: traZODone HCL 100 MG TABLET 200 MG PO (21:38)
[2024-08-23] MEDS: Zolpidem Tartrate 5 MG TABLET PO (21:38)
[2024-08-23] MEDS: Prazosin HCL 5 MG CAPSULE 15 MG PO (21:43)
[2024-08-23] MEDS: Prazosin HCL 1 MG CAPSULE PO (21:43)
[2024-08-23] MEDS: Sodium Phosphate,Mono-Dibasic 133 ML ENEMA PR (22:40)
--- NOTE | 2024-08-24 | ECG_ITS ---
Test Reason : ECT clearance Blood Pressure : */* mmHG Vent. Rate : 72 BPM Atrial Rate : 72 BPM P-R Int : 154 ms QRS Dur : 72 ms QT Int : 390 ms P-R-T Axes : 75 87 62 degrees QTcB Int : 427 ms Normal sinus rhythm Nonspecific ST abnormality Borderline ECG When compared with ECG of 19-Aug-2024 10:48, No significant change was found Referred By: Ronnie Jesus Electronically Signed By: LIZET ANN
[2024-08-24 08:00] VITALS: BP 129/83; PULSE 89; RESP 16; TEMP 36.6; O2SAT 96
[2024-08-24 09:17] VITALS: BP 129/83
[2024-08-24] MEDS: cloNIDine HCL 0.1 MG TABLET PO ×3 (09:17→22:32)
[2024-08-24] MEDS: Loratadine 10 MG TABLET PO (09:17)
[2024-08-24] MEDS: Calcium + Vitamin D 250 MG TABLET PO ×2 (09:18→22:33)
[2024-08-24] MEDS: Cholecalciferol (Vitamin D3) 25 MCG TABLET PO (09:18)
[2024-08-24] MEDS: Omeprazole 20 MG CAPSULE.DR PO (09:18)
[2024-08-24] MEDS: Benztropine Mesylate 0.5 MG TABLET PO ×2 (09:18→22:33)
[2024-08-24] MEDS: DULoxetine HCl 60 MG CAPSULE.DR PO (09:18)
[2024-08-24] MEDS: Fluticasone Propionate Nasal 16 GM SPRAY 2 SPRAY NOSTRIL-B (09:19)
[2024-08-24] MEDS: Fluticasone/Vilanterol 200/25 BLST.W.DEV 1 PUFF INHALE (09:19)
[2024-08-24] MEDS: Lithium Carbonate 300 MG CAPSULE PO (09:19)
[2024-08-24] MEDS: buPROPion HCl XL 150 MG TAB.ER.24H PO (09:19)
[2024-08-24] MEDS: HaloperidoL 5 MG TABLET PO ×5 (09:19→23:20)
[2024-08-24] MEDS: Multivitamin TABLET 1 TAB PO (09:19)
[2024-08-24] MEDS: LORazepam 1 MG TABLET PO (11:54)
[2024-08-24] MEDS: OLANZapine 10 MG VIAL 5 MG IM ×3 (12:22→21:23)
[2024-08-24] MEDS: Albuterol Sulfate 90 MCG 8 GM INHALER 2 PUFF INHALE (12:22)
[2024-08-24] MEDS: LORazepam 2 MG/ML VIAL 1 MG IM (12:22)
--- NOTE | 2024-08-24 13:56 | HO.PSYCHPN ---
Subjective Subjective Date of Service: 08/24/24 Reason For Visit: SI Interim History: appears dysphoric. states this is the worst she's been doing in a long time, and she is having a difficult time. discuss wellbutrin before ECT and no benzos after 5 pm today. c/o constipation, reviewed interventions available to her at present. per staff, dep/SI/paranoid. redirection from head-banging. +SI, AH. IMs, enema last night. Mental Status Exam Mental Status Exam Narrative: Pt is alert and oriented; behavior is cooperative and calm; dressed in casual attire with unkempt hair; eye contact appropriate; Speech is decr rate, volume and prosody and not pressured; no psychomotor agitation/retardation present; thought process is organized and goal directed; Thought content is on constipation, psychic suffering; otherwise pertinent to relevant topics and without any delusional content, paranoid ideations or grandiosity; +SIBI, no SI/HI/AVH expressed. Patients insight and judgment are fair. Diagnostics Vital Signs (24Hr): Vital Signs - 24 hr 08/23/24 14:11 08/23/24 21:04 08/24/24 08:00 Temperature 97.5 F 97.8 F Pulse Rate 85 89 Respiratory Rate 18 16 Blood Pressure 164/97 H 121/74 129/83 Pulse Oximetry 95 96 Oxygen Delivery Method Room Air Room Air 08/24/24 09:17 Temperature Pulse Rate Respiratory Rate Blood Pressure 129/83 Pulse Oximetry Oxygen Delivery Method BMI result Body Mass Index 31.9 Labs 08/16/24 21:21 08/17/24 19:01 Imaging Radiology Impressions: ITS Impressions KUB X-Ray 08/22/24 11:41 IMPRESSION: Mild constipation. Electronically signed by: Bry Cox MD 08/22/2024 12:00 PM [facility] [place] Medications Current Medications Acetaminophen (Acetaminophen 325 Mg Tablet) 650 mg PO Q6H PRN PRN Reason: Headache/Pain Mild Scale (1-3) Last Admin: 08/21/24 20:39 Dose: 650 mg Al Hydroxide/Mg Hydroxide (Magnesium Hydrox/Alum Hydrox 30 Ml Oral.Susp) 30 ml PO Q6H PRN PRN Reason: Heartburn/Nausea Last Admin: 08/21/24 19:21 Dose: 30 ml Albuterol Sulfate (Albuterol Sulfate 90 Mcg 8 Gm Inhaler) 2 puff INHALE RQID PRN PRN Reason: wheezing Last Admin: 08/24/24 12:22 Dose: 2 puff Benztropine Mesylate (Benztropine Mesylate 0.5 Mg Tablet) 0.5 mg PO BID [facility] Last Admin: 08/24/24 09:18 Dose: 0.5 mg Bupropion HCl (Bupropion Hcl Xl 150 Mg Tab.Er.24h) 150 mg PO DAILY [facility] Last Admin: 08/24/24 09:19 Dose: 150 mg Calcium Carbonate/Cholecalciferol (Calcium + Vitamin D 250 Mg Tablet) 250 mg PO BID [facility] Last Admin: 08/24/24 09:18 Dose: 250 mg Clonidine HCl (Clonidine Hcl 0.1 Mg Tablet) 0.1 mg PO TID [facility]; Protocol Last Admin: 08/24/24 09:17 Dose: 0.1 mg Diphenhydramine HCl (Diphenhydramine Hcl 25 Mg Capsule) 100 mg PO BEDTIME [facility] Last Admin: 08/23/24 21:37 Dose: 100 mg Duloxetine HCl (Duloxetine Hcl 60 Mg Capsule.Dr) 60 mg PO DAILY [facility] Last Admin: 08/24/24 09:18 Dose: 60 mg Fluticasone Propionate (Fluticasone Propionate Nasal 16 Gm [place]) 2 spray NOSTRIL-B DAILY [facility] Last Admin: 08/24/24 09:19 Dose: 2 spray Fluticasone/Vilanterol (Fluticasone/Vilanterol 200/25 Blst.W.Dev) 1 puff INHALE RDAILY [facility] Last Admin: 08/24/24 09:19 Dose: 1 puff Haloperidol (Haloperidol 5 Mg Tablet) 5 mg PO TID [facility] Last Admin: 08/24/24 09:19 Dose: 5 mg Haloperidol (Haloperidol 5 Mg Tablet) 5 mg PO BID PRN PRN Reason: Psychosis Last Admin: 08/24/24 11:54 Dose: 5 mg Haloperidol Decanoate (Haloperidol Decanoate 50 Mg/Ml Vial) 75 mg IM Q28D [facility] Ibuprofen (Ibuprofen 600 Mg Tablet) 600 mg PO TID PRN PRN Reason: arthritis Last Admin: 08/22/24 11:02 Dose: 600 mg Lactulose (Lactulose 20 Gm/30 Ml Solution) 30 gm PO DAILY PRN PRN Reason: Constipation Last Admin: 08/23/24 11:34 Dose: 30 gm [place] Carbonate ([place] Carbonate 300 Mg Capsule) 300 mg PO BID [facility] Last Admin: 08/24/24 09:19 Dose: 300 mg Loratadine (Loratadine 10 Mg Tablet) 10 mg PO DAILY [facility] Last Admin: 08/24/24 09:17 Dose: 10 mg Lorazepam (Lorazepam 1 Mg Tablet) 1 mg PO TID PRN PRN Reason: anxiety/agitation Last Admin: 08/24/24 11:54 Dose: 1 mg Magnesium Hydroxide (Milk Of Magnesia 30 Ml Oral.Susp) 30 ml PO DAILY PRN PRN Reason: Constipation Last Admin: 08/17/24 19:32 Dose: 30 ml Multivitamins/Vitamin C (Multivitamin Tablet) 1 tab PO DAILY [facility] Last Admin: 08/24/24 09:19 Dose: 1 tab Nicotine Polacrilex (Nicotine Polacrilex 2 Mg Gum) 2 mg BUCCAL Q1H PRN PRN Reason: Nicotine Cravings Omeprazole (Omeprazole 20 Mg Capsule.Dr) 20 mg PO Q48H [facility] Last Admin: 08/24/24 09:18 Dose: 20 mg Polyethylene Glycol (Polyethylene Glycol 3350 17 Gm Powd.Pack) 17 gm PO DAILY PRN PRN Reason: Constipation Last Admin: 08/18/24 21:25 Dose: 17 gm Prazosin HCl (Prazosin Hcl 1 Mg Capsule) 1 mg PO BEDTIME [facility]; Protocol Last Admin: 08/23/24 21:43 Dose: 1 mg Prazosin HCl (Prazosin Hcl 5 Mg Capsule) 15 mg PO BEDTIME [facility]; Protocol Last Admin: 08/23/24 21:43 Dose: 15 mg Sodium Biphosphate/Sodium Phosphate (Sodium Phosphate,[place]-Dibasic 133 Ml Enema) 133 ml [place] ONCE PRN PRN Reason: constipation Last Admin: 08/23/24 22:40 Dose: 133 ml Sodium Biphosphate/Sodium Phosphate (Sodium Phosphate,[place]-Dibasic 133 Ml Enema) 133 ml [place] DAILY PRN PRN Reason: Constipation Trazodone HCl (Trazodone Hcl 100 Mg Tablet) 200 mg PO BEDTIME [facility] Last Admin: 08/23/24 21:38 Dose: 200 mg Vitamin D (Cholecalciferol (Vitamin D3) 25 Mcg Tablet) 25 mcg PO DAILY [facility] Last Admin: 08/24/24 09:18 Dose: 25 mcg Zolpidem Tartrate (Zolpidem Tartrate 5 Mg Tablet) 5 mg PO BEDTIME [facility] Last Admin: 08/23/24 21:38 Dose: 5 mg Allergies Allergies Allergy/AdvReac Type Severity Reaction Status Date / Time carbamazepine [From TEGRETOL] AdvReac Mild Nausea and Verified 08/16/24 20:32 Vomiting topiramate [From Topamax] AdvReac Mild Nausea and Verified 08/16/24 20:32 Vomiting Assessment & Plan Assessment & Plan (1) MDD (major depressive disorder), recurrent, severe, with psychosis: Status: Acute Code(s): F33.3 - Major depressive disorder, recurrent, severe with psychotic symptoms (2) Chronic post-traumatic stress disorder (PTSD): Status: Chronic Code(s): F43.12 - Post-traumatic stress disorder, chronic (3) Borderline personality disorder: Status: Chronic Code(s): F60.3 - Borderline personality disorder Plan continue outpt regimen. continue ECT next if still inpatient. continue CO for safety. 08/20/24 patient looking foward to ECt as it helped in past 08/21: upset ECT bumped from wed to wednesday. accusing staff of not caring about her. head-banging after being made aware. 08/22: calm today. c/o constipation. KUB and enema ordered. awaiting ECT wednesday. no complaints or requests otherwise. 08/23: got IMs this morning due to not liking her 1:1 and feeling upset about that. informed ECT at 0800 wednesday. will take lactulose for continued constipation; small BM yesterday post-enema. 08/24: IMs yesterday evening, also today. hold wellbutrin. no benzos after 5. ECT scheduled for tomorrow morning at 8. continue current mgmt otherwise. Reason for continued inpatient stay Substantial Risk for: harm to self, inability to function and rapid decompensation Time Spent With Patient Time: Total time managing care of this patient today __25__ minutes.
[2024-08-24 14:45] VITALS: BP 119/71
[2024-08-24 15:22] LABS: Appearance Urine Clear; Color Urine Yellow; Glucose Urine UA Negative (Negative); Leukocyte Esterase Urine Negative (Negative); Nitrite Urine Negative (Negative); PH 7.5 (5.0-9.0); Specific Gravity - Urine <= 1.005 (1.005-1.025); Urine Blood Negative (Negative); Urine Ketones Negative (Negative); Urine Protein Negative (Neg-Trace)
--- NOTE | 2024-08-24 15:43 | HO.ECTCONS_ITS ---
History of Present Illness Data of Consult Service Date: 08/24/24 Primary Care Provider: Hafsa Holcomb NP HPI Reason for consult: ECT risk stratification Pt is a 39-year-old female with a PMH significant for COPD/asthma overlap syndrome, GERD, PTSD, schizoaffective disorder, and borderline personality disorder admitted to Psychiatric unit for increasing depression after father's recent passing. Consult placed to hospitalist services for ECT risk stratification. Pt has undergone ECT many times in the past without complications, most recently inpatient a few months ago in 05/2024 and most recently outpatient 2 weeks ago. Pt is interested in increasing frequency of ECT as she believes it helps a great deal. Pt denies any significant changes to PMH since last ECT risk stratification and May. Pt has a known asthma/COPD overlap syndrome on a rescue inhaler inhaler which she uses occasionally. Currently denies any acute respiratory complaints. Denies known history of TBI, stroke, intracranial bleed, intracranial mass, or seizure disorder. No history of bleeding disorders, CAD, or previous difficulties with anesthesia. Pt reports continuing difficulties with constipation, though denies any other acute medical complaints at this time. No fever, chills, nausea, vomiting, abdominal pain. Denies chest pain/pressure, palpitations. No shortness a breath or difficulty breathing. Denies headache or acute vision changes. EKG reviewed showing normal sinus rhythm without significant ischemic changes and QTC WNL at 427. Review of Systems 2 Review of Systems: Chronic constipation, otherwise no acute medical complaints at this time [facility] Medical History (Updated 08/24/24 @ 16:35 by JUANITO Olivo) Pre-op evaluation MDD (major depressive disorder), recurrent, severe, with psychosis Port-A-Cath in place History of electroconvulsive therapy COVID-19 COVID-19 Sprain of left foot Chronic post-traumatic stress disorder (PTSD) COPD (chronic obstructive pulmonary disease) Increased BMI GERD (gastroesophageal reflux disease) Recurrent major depression-severe Acute post-traumatic stress disorder Injury, self-inflicted Suicidal ideation Self-harming behavior Intentional self-harm Suicidal ideation Borderline personality disorder Schizoaffective disorder Adjustment disorder Asthma Depression Anxiety PTSD (post-traumatic stress disorder) Family History Mother Brain cancer Other No family history of cardiac disease Social History Household Members: Other Household Members Other:: group housemates Housing: Other Housing Other:: jail Do you presently have visiting nurse or other home services: No Unable to assess alcohol history related to: Unable to respond Alcohol intake: never Comment: 1:1 safety observation Patient Tobacco Use Status: Current everyday Tobacco user Tobacco use type: Cigarette Cigarette Packs Per Day: 0.5 Cigarettes Per Day: 10.0 Years Smoked: 15 e-Cigarette/Vaping Use: Former Use Second Hand Smoke Exposure: Yes Substance Use Type: Marijuana service: No Current occupation: rt handed Sexual orientation: Straight/Heterosexual Meds Allergies Allergy/AdvReac Type Severity Reaction Status Date / Time carbamazepine [From TEGRETOL] AdvReac Mild Nausea and Verified 08/16/24 20:32 Vomiting topiramate [From Topamax] AdvReac Mild Nausea and Verified 08/16/24 20:32 Vomiting Active Medications: Current Medications Acetaminophen (Acetaminophen 325 Mg Tablet) 650 mg PO Q6H PRN PRN Reason: Headache/Pain Mild Scale (1-3) Last Admin: 08/21/24 20:39 Dose: 650 mg Al Hydroxide/Mg Hydroxide (Magnesium Hydrox/Alum Hydrox 30 Ml Oral.Susp) 30 ml PO Q6H PRN PRN Reason: Heartburn/Nausea Last Admin: 08/21/24 19:21 Dose: 30 ml Albuterol Sulfate (Albuterol Sulfate 90 Mcg 8 Gm Inhaler) 2 puff INHALE RQID PRN PRN Reason: wheezing Last Admin: 08/24/24 12:22 Dose: 2 puff Benztropine Mesylate (Benztropine Mesylate 0.5 Mg Tablet) 0.5 mg PO BID [facility] Last Admin: 08/24/24 09:18 Dose: 0.5 mg Bupropion HCl (Bupropion Hcl Xl 150 Mg Tab.Er.24h) 150 mg PO DAILY [facility] Last Admin: 08/24/24 09:19 Dose: 150 mg Calcium Carbonate/Cholecalciferol (Calcium + Vitamin D 250 Mg Tablet) 250 mg PO BID [facility] Last Admin: 08/24/24 09:18 Dose: 250 mg Clonidine HCl (Clonidine Hcl 0.1 Mg Tablet) 0.1 mg PO TID [facility]; Protocol Last Admin: 08/24/24 14:45 Dose: 0.1 mg Diphenhydramine HCl (Diphenhydramine Hcl 25 Mg Capsule) 100 mg PO BEDTIME [facility] Last Admin: 08/23/24 21:37 Dose: 100 mg Duloxetine HCl (Duloxetine Hcl 60 Mg Capsule.Dr) 60 mg PO DAILY [facility] Last Admin: 08/24/24 09:18 Dose: 60 mg Fluticasone Propionate (Fluticasone Propionate Nasal 16 Gm [place]) 2 spray NOSTRIL-B DAILY [facility] Last Admin: 08/24/24 09:19 Dose: 2 spray Fluticasone/Vilanterol (Fluticasone/Vilanterol 200/25 Blst.W.Dev) 1 puff INHALE RDAILY [facility] Last Admin: 08/24/24 09:19 Dose: 1 puff Haloperidol (Haloperidol 5 Mg Tablet) 5 mg PO TID [facility] Last Admin: 08/24/24 14:45 Dose: 5 mg Haloperidol (Haloperidol 5 Mg Tablet) 5 mg PO BID PRN PRN Reason: Psychosis Last Admin: 08/24/24 11:54 Dose: 5 mg Haloperidol Decanoate (Haloperidol Decanoate 50 Mg/Ml Vial) 75 mg IM Q28D [facility] Ibuprofen (Ibuprofen 600 Mg Tablet) 600 mg PO TID PRN PRN Reason: arthritis Last Admin: 08/22/24 11:02 Dose: 600 mg Lactulose (Lactulose 20 Gm/30 Ml Solution) 30 gm PO DAILY PRN PRN Reason: Constipation Last Admin: 08/23/24 11:34 Dose: 30 gm [place] Carbonate ([place] Carbonate 300 Mg Capsule) 300 mg PO BID [facility] Last Admin: 08/24/24 09:19 Dose: 300 mg Loratadine (Loratadine 10 Mg Tablet) 10 mg PO DAILY [facility] Last Admin: 08/24/24 09:17 Dose: 10 mg Lorazepam (Lorazepam 1 Mg Tablet) 1 mg PO TID PRN PRN Reason: anxiety/agitation Last Admin: 08/24/24 11:54 Dose: 1 mg Magnesium Hydroxide (Milk Of Magnesia 30 Ml Oral.Susp) 30 ml PO DAILY PRN PRN Reason: Constipation Last Admin: 08/17/24 19:32 Dose: 30 ml Multivitamins/Vitamin C (Multivitamin Tablet) 1 tab PO DAILY [facility] Last Admin: 08/24/24 09:19 Dose: 1 tab Nicotine Polacrilex (Nicotine Polacrilex 2 Mg Gum) 2 mg BUCCAL Q1H PRN PRN Reason: Nicotine Cravings Omeprazole (Omeprazole 20 Mg Capsule.Dr) 20 mg PO Q48H [facility] Last Admin: 08/24/24 09:18 Dose: 20 mg Polyethylene Glycol (Polyethylene Glycol 3350 17 Gm Powd.Pack) 17 gm PO DAILY PRN PRN Reason: Constipation Last Admin: 08/18/24 21:25 Dose: 17 gm Prazosin HCl (Prazosin Hcl 1 Mg Capsule) 1 mg PO BEDTIME [facility]; Protocol Last Admin: 08/23/24 21:43 Dose: 1 mg Prazosin HCl (Prazosin Hcl 5 Mg Capsule) 15 mg PO BEDTIME [facility]; Protocol Last Admin: 08/23/24 21:43 Dose: 15 mg Sodium Biphosphate/Sodium Phosphate (Sodium Phosphate,[place]-Dibasic 133 Ml Enema) 133 ml [place] ONCE PRN PRN Reason: constipation Last Admin: 08/23/24 22:40 Dose: 133 ml Sodium Biphosphate/Sodium Phosphate (Sodium Phosphate,[place]-Dibasic 133 Ml Enema) 133 ml [place] DAILY PRN PRN Reason: Constipation Trazodone HCl (Trazodone Hcl 100 Mg Tablet) 200 mg PO BEDTIME [facility] Last Admin: 08/23/24 21:38 Dose: 200 mg Vitamin D (Cholecalciferol (Vitamin D3) 25 Mcg Tablet) 25 mcg PO DAILY [facility] Last Admin: 08/24/24 09:18 Dose: 25 mcg Zolpidem Tartrate (Zolpidem Tartrate 5 Mg Tablet) 5 mg PO BEDTIME [facility] Last Admin: 08/23/24 21:38 Dose: 5 mg Home Medications ?Medication ?Instructions ?Recorded ?Confirmed ?Last Taken ?Type albuterol sulfate 90 mcg/actuation 2 puff inhalation QID PRN wheezing 04/30/24 08/17/24 05/29/24 07:00 History aerosol inhaler (Ventolin HFA) benztropine 0.5 mg tablet 0.5 mg PO BID 04/30/24 08/17/24 08/14/24 History clonidine HCl 0.1 mg tablet 0.1 mg PO TID 04/30/24 08/17/24 08/14/24 History diphenhydramine HCl 50 mg capsule 100 mg PO BEDTIME insomnia 04/30/24 08/17/24 08/14/24 History (Banophen) duloxetine 60 mg capsule,delayed 60 mg PO DAILY 04/30/24 08/17/24 08/14/24 History release lithium carbonate 300 mg tablet 300 mg PO BID 04/30/24 08/17/24 08/14/24 History omeprazole 20 mg capsule,delayed 20 mg PO Q OTHER DAY 04/30/24 08/17/24 08/14/24 History release prazosin 5 mg capsule 15 mg PO BEDTIME 04/30/24 08/17/24 08/14/24 History trazodone 100 mg tablet 200 mg PO BEDTIME insomnia 04/30/24 08/17/24 08/14/24 History cetirizine 10 mg tablet 10 mg PO DAILY 05/17/24 08/17/24 08/14/24 History ibuprofen 600 mg tablet 600 mg PO TID PRN arthritis 05/17/24 08/17/24 08/14/24 History multivitamin 1 tab PO DAILY 05/17/24 08/17/24 08/14/24 History psyllium husk 0.4 gram capsule 0.8 g PO BID 05/17/24 08/15/24 08/14/24 History (Daily Fiber) zolpidem 10 mg tablet 10 mg PO BEDTIME insomnia 05/17/24 08/17/24 08/14/24 History calcium 600 mg (as 1 tab PO BID 07/29/24 08/17/24 08/14/24 History carbonate)-vitamin D3 10 mcg (400 unit) tablet cholecalciferol (vitamin D3) 25 25 mcg PO DAILY 07/29/24 08/17/24 08/14/24 History mcg (1,000 unit) tablet (Vitamin D3) fluticasone propionate 230 2 puff inhalation BID 07/29/24 08/17/24 08/14/24 History mcg-salmeterol 21 mcg/actuation HFA inhaler (Advair HFA) acetaminophen 500 mg tablet 500 mg PO Q6H PRN Pain 08/15/24 08/15/24 08/14/24 History fluticasone propionate 50 2 spray intranasal DAILY 08/15/24 08/17/24 08/14/24 History mcg/actuation nasal spray,suspension haloperidol 5 mg tablet 5 mg PO TID 08/15/24 08/17/24 08/14/24 History haloperidol decanoate 100 mg/mL 75 mg IM Q28D 08/15/24 08/17/24 08/14/24 History intramuscular solution lidocaine 5 % topical patch 1 patch topical DAILY 08/15/24 08/15/24 08/14/24 History nicotine (polacrilex) 2 mg gum 2 mg PO Q2H PRN Cravings 08/15/24 08/15/24 08/14/24 History polyethylene glycol 3350 17 17 g PO DAILY PRN Constipation 08/15/24 08/15/24 08/14/24 History gram/dose oral powder (Miralax) prazosin 1 mg capsule 1 mg PO BEDTIME 08/15/24 08/17/24 08/14/24 History budesonide-formoterol HFA 160 2 puff inhalation BID 08/17/24 08/17/24 Unknown History mcg-4.5 mcg/actuation aerosol inhaler (Symbicort) Physical Exam 2 Vital Signs and Narrative: Vital Signs: Last Vital Signs Temp 97.8 F 08/24/24 08:00 Pulse 89 08/24/24 08:00 Resp 16 08/24/24 08:00 BP 119/71 08/24/24 14:45 Pulse Ox 96 08/24/24 08:00 O2 Del Method Room Air 08/24/24 08:00 BMI result Body Mass Index 31.9 General: AOx3, no acute distress Resp: CTA bilaterally CVS: S1, S2, RRR GI: +BS, NT, no distention Skin: Warm, dry Neuro: Cranial nerves II-XII grossly intact bilaterally. Motor grossly intact bilaterally Extremities: No edema Psych: Flat affect Results Labs 08/16/24 21:21 08/17/24 19:01 Labs: Laboratory Results - last 24 hr 08/24/24 15:03 Urine Color Yellow Urine Appearance Clear Urine pH 7.5 Ur Specific [place] <= 1.005 Urine Protein Negative Urine Glucose (UA) Negative Urine Ketones Negative Urine Blood Negative Urine Nitrite Negative Ur Leukocyte Esterase Negative Assessment and Plan (1) Pre-op evaluation: Status: Acute Plan Pt is a 39-year-old female with a PMH significant for COPD/asthma overlap syndrome, GERD, PTSD, schizoaffective disorder, and borderline personality disorder admitted to Psychiatric unit for increasing depression after father's recent passing. Consult placed to hospitalist services for ECT risk stratification. ECT pre-op evaluation Patient has undergone ECT multiple times in the past without incident, most recently outpatient 2 weeks ago Review of EKG without ischemic changes or prolonged QTc; currently denies chest pain/pressure or palpitations No previous known difficulties with anesthesia Revised cardiac risk index: 0 points Based on patient history and exam, there are no medical contraindications to patient undergoing ECT Thank you for allowing us to participate in the care of this patient. Signing off at this time. Please re-consult if any acute complaints or issues arise.
[2024-08-24 22:10] VITALS: BP 136/82; PULSE 84; RESP 18; TEMP 36.7; O2SAT 96
[2024-08-24] MEDS: Prazosin HCL 5 MG CAPSULE 15 MG PO (22:32)
[2024-08-24] MEDS: traZODone HCL 100 MG TABLET 200 MG PO (22:32)
[2024-08-24] MEDS: diphenhydrAMINE HCL 25 MG CAPSULE 100 MG PO (22:32)
[2024-08-24] MEDS: Prazosin HCL 1 MG CAPSULE PO (22:32)
[2024-08-25] VITALS (12 sets, daily range): BP systolic 103–153; BP diastolic 53–99; PULSE 82–99; RESP 16–18; TEMP 36.2–36.9; O2SAT 94–97
--- NOTE | 2024-08-25 07:01 | MHC.SHP ---
Pre-Procedural Eval Section A - 24 Hr Update-Section A only Date of Service: 08/25/24 The patient is an INPATIENT: Yes Changes since office visit: No Cold of Flu in the past 2 weeks, No New Medical Problems, No Changes in Medication and No Patient answered all questions The patient has been examined within 24 hours of the surgical procedure. The History & Physical has been completed within 30 days and I have reviewed it.: Yes Section B - Complete if H&P > 30 days Chief Complaint: SI Allergies: Allergies Allergy/AdvReac Type Severity Reaction Status Date / Time carbamazepine [From TEGRETOL] AdvReac Mild Nausea and Verified 08/16/24 20:32 Vomiting topiramate [From Topamax] AdvReac Mild Nausea and Verified 08/16/24 20:32 Vomiting Plan I have reviewed the history and physical and performed a pertinent physical examination on my patient. No changes have occurred unless specified. Time Spent With Patient Time: Total time managing care of this patient today ____ minutes.
--- NOTE | 2024-08-25 07:03 | P.CONAN_ITS ---
[facility] Active Problems Active Problems: All Active Problems Pre-op evaluation (Acute) Depression with suicidal ideation (Acute) MDD (major depressive disorder), recurrent, severe, with psychosis (Acute) Depression (Acute) Osteoarthritis of right knee (Acute) Chronic post-traumatic stress disorder (PTSD) (Chronic) Schizoaffective disorder, depressive type (Chronic) Borderline personality disorder (Chronic) Auditory hallucinations (Acute) Port-A-Cath in place (Acute) Intentional self-harm (Acute) COPD (chronic obstructive pulmonary disease) (Acute) Asthma (Acute) Adjustment disorder (Acute) Anxiety (Acute) Injury of ligament of right knee (Acute) Sprain of anterior cruciate ligament of right knee (Acute) Hernia (Chronic) Increased BMI (Acute) GERD (gastroesophageal reflux disease) (Acute) Past Medical History Medical History (Updated 08/24/24 @ 16:35 by JUANITO Olivo) Pre-op evaluation MDD (major depressive disorder), recurrent, severe, with psychosis Port-A-Cath in place History of electroconvulsive therapy COVID-19 COVID-19 Sprain of left foot Chronic post-traumatic stress disorder (PTSD) COPD (chronic obstructive pulmonary disease) Increased BMI GERD (gastroesophageal reflux disease) Recurrent major depression-severe Acute post-traumatic stress disorder Injury, self-inflicted Suicidal ideation Self-harming behavior Intentional self-harm Suicidal ideation Borderline personality disorder Schizoaffective disorder Adjustment disorder Asthma Depression Anxiety PTSD (post-traumatic stress disorder) Family History Family History Mother Brain cancer Other No family history of cardiac disease Family history of problems with anesthesia: No Surgical History History of Problems with Anesthesia: No Social History Social History Household Members: Other Household Members Other:: group housemates Housing: Other Housing Other:: half-way Do you presently have visiting nurse or other home services: No Unable to assess alcohol history related to: Unable to respond Alcohol intake: never Comment: 1:1 safety observation Patient Tobacco Use Status: Current everyday Tobacco user Tobacco use type: Cigarette Cigarette Packs Per Day: 0.5 Cigarettes Per Day: 10.0 Years Smoked: 15 e-Cigarette/Vaping Use: Former Use Second Hand Smoke Exposure: Yes Substance Use Type: Marijuana service: No Current occupation: rt handed Sexual orientation: Straight/Heterosexual Meds Allergies Allergy/AdvReac Type Severity Reaction Status Date / Time carbamazepine [From TEGRETOL] AdvReac Mild Nausea and Verified 08/16/24 20:32 Vomiting topiramate [From Topamax] AdvReac Mild Nausea and Verified 08/16/24 20:32 Vomiting Active Medications: Current Medications Acetaminophen (Acetaminophen 325 Mg Tablet) 650 mg PO Q6H PRN PRN Reason: Headache/Pain Mild Scale (1-3) Last Admin: 08/21/24 20:39 Dose: 650 mg Al Hydroxide/Mg Hydroxide (Magnesium Hydrox/Alum Hydrox 30 Ml Oral.Susp) 30 ml PO Q6H PRN PRN Reason: Heartburn/Nausea Last Admin: 08/21/24 19:21 Dose: 30 ml Albuterol Sulfate (Albuterol Sulfate 90 Mcg 8 Gm Inhaler) 2 puff INHALE RQID PRN PRN Reason: wheezing Last Admin: 08/24/24 12:22 Dose: 2 puff Benztropine Mesylate (Benztropine Mesylate 0.5 Mg Tablet) 0.5 mg PO BID [facility] [place] Last Admin: 08/24/24 22:33 Dose: 0.5 mg Bupropion HCl (Bupropion Hcl Xl 150 Mg Tab.Er.24h) 150 mg PO DAILY [facility] [place] Last Admin: 08/24/24 09:19 Dose: 150 mg Calcium Carbonate/Cholecalciferol (Calcium + Vitamin D 250 Mg Tablet) 250 mg PO BID [facility] [place] Last Admin: 08/24/24 22:33 Dose: 250 mg Clonidine HCl (Clonidine Hcl 0.1 Mg Tablet) 0.1 mg PO TID [facility] [place]; Protocol Last Admin: 08/24/24 22:32 Dose: 0.1 mg Diphenhydramine HCl (Diphenhydramine Hcl 25 Mg Capsule) 100 mg PO BEDTIME [facility] [place] Last Admin: 08/24/24 22:32 Dose: 100 mg Duloxetine HCl (Duloxetine Hcl 60 Mg Capsule.Dr) 60 mg PO DAILY [facility] [place] Last Admin: 08/24/24 09:18 Dose: 60 mg Fluticasone Propionate (Fluticasone Propionate Nasal 16 Gm [place]) 2 spray NOSTRIL-B DAILY [facility] [place] Last Admin: 08/24/24 09:19 Dose: 2 spray Fluticasone/Vilanterol (Fluticasone/Vilanterol 200/25 Blst.W.Dev) 1 puff INHALE RDAILY [facility] [place] Last Admin: 08/24/24 09:19 Dose: 1 puff Haloperidol (Haloperidol 5 Mg Tablet) 5 mg PO TID [facility] [place] Last Admin: 08/24/24 22:32 Dose: 5 mg Haloperidol (Haloperidol 5 Mg Tablet) 5 mg PO BID PRN PRN Reason: Psychosis Last Admin: 08/24/24 23:20 Dose: 5 mg Haloperidol Decanoate (Haloperidol Decanoate 50 Mg/Ml Vial) 75 mg IM Q28D [facility] [place] Ibuprofen (Ibuprofen 600 Mg Tablet) 600 mg PO TID PRN PRN Reason: arthritis Last Admin: 08/22/24 11:02 Dose: 600 mg Lactulose (Lactulose 20 Gm/30 Ml Solution) 30 gm PO DAILY PRN PRN Reason: Constipation Last Admin: 08/23/24 11:34 Dose: 30 gm Dorothy Carbonate (Dorothy Carbonate 300 Mg Capsule) 300 mg PO BID [facility] [place] Last Admin: 08/24/24 19:42 Dose: Not Given Loratadine (Loratadine 10 Mg Tablet) 10 mg PO DAILY [facility] [place] Last Admin: 08/24/24 09:17 Dose: 10 mg Lorazepam (Lorazepam 1 Mg Tablet) 1 mg PO TID PRN PRN Reason: anxiety/agitation Last Admin: 08/24/24 11:54 Dose: 1 mg Magnesium Hydroxide (Milk Of Magnesia 30 Ml Oral.Susp) 30 ml PO DAILY PRN PRN Reason: Constipation Last Admin: 08/17/24 19:32 Dose: 30 ml Multivitamins/Vitamin C (Multivitamin Tablet) 1 tab PO DAILY [facility] [place] Last Admin: 08/24/24 09:19 Dose: 1 tab Nicotine Polacrilex (Nicotine Polacrilex 2 Mg Gum) 2 mg BUCCAL Q1H PRN PRN Reason: Nicotine Cravings Omeprazole (Omeprazole 20 Mg Capsule.Dr) 20 mg PO Q48H [facility] [place] Last Admin: 08/24/24 09:18 Dose: 20 mg Polyethylene Glycol (Polyethylene Glycol 3350 17 Gm Powd.Pack) 17 gm PO DAILY PRN PRN Reason: Constipation Last Admin: 08/18/24 21:25 Dose: 17 gm Prazosin HCl (Prazosin Hcl 1 Mg Capsule) 1 mg PO BEDTIME [facility] [place]; Protocol Last Admin: 08/24/24 22:32 Dose: 1 mg Prazosin HCl (Prazosin Hcl 5 Mg Capsule) 15 mg PO BEDTIME [facility] [place]; Protocol Last Admin: 08/24/24 22:32 Dose: 15 mg Sodium Biphosphate/Sodium Phosphate (Sodium Phosphate,Ward-Dibasic 133 Ml Enema) 133 ml NV ONCE PRN PRN Reason: constipation Last Admin: 08/23/24 22:40 Dose: 133 ml Sodium Biphosphate/Sodium Phosphate (Sodium Phosphate,Ward-Dibasic 133 Ml Enema) 133 ml NV DAILY PRN PRN Reason: Constipation Trazodone HCl (Trazodone Hcl 100 Mg Tablet) 200 mg PO BEDTIME [facility] Last Admin: 08/24/24 22:32 Dose: 200 mg Vitamin D (Cholecalciferol (Vitamin D3) 25 Mcg Tablet) 25 mcg PO DAILY [facility] Last Admin: 08/24/24 09:18 Dose: 25 mcg Zolpidem Tartrate (Zolpidem Tartrate 5 Mg Tablet) 5 mg PO BEDTIME [facility] Last Admin: 08/24/24 21:03 Dose: Not Given Home Medications ?Medication ?Instructions ?Recorded ?Confirmed ?Last Taken ?Type albuterol sulfate 90 mcg/actuation 2 puff inhalation QID PRN wheezing 04/30/24 08/17/24 05/29/24 07:00 History aerosol inhaler (Ventolin HFA) benztropine 0.5 mg tablet 0.5 mg PO BID 04/30/24 08/17/24 08/14/24 History clonidine HCl 0.1 mg tablet 0.1 mg PO TID 04/30/24 08/17/24 08/14/24 History diphenhydramine HCl 50 mg capsule 100 mg PO BEDTIME insomnia 04/30/24 08/17/24 08/14/24 History (Banophen) duloxetine 60 mg capsule,delayed 60 mg PO DAILY 04/30/24 08/17/24 08/14/24 History release lithium carbonate 300 mg tablet 300 mg PO BID 04/30/24 08/17/24 08/14/24 History omeprazole 20 mg capsule,delayed 20 mg PO Q OTHER DAY 04/30/24 08/17/24 08/14/24 History release prazosin 5 mg capsule 15 mg PO BEDTIME 04/30/24 08/17/24 08/14/24 History trazodone 100 mg tablet 200 mg PO BEDTIME insomnia 04/30/24 08/17/24 08/14/24 History cetirizine 10 mg tablet 10 mg PO DAILY 05/17/24 08/17/24 08/14/24 History ibuprofen 600 mg tablet 600 mg PO TID PRN arthritis 05/17/24 08/17/24 08/14/24 History multivitamin 1 tab PO DAILY 05/17/24 08/17/24 08/14/24 History psyllium husk 0.4 gram capsule 0.8 g PO BID 05/17/24 08/15/24 08/14/24 History (Daily Fiber) zolpidem 10 mg tablet 10 mg PO BEDTIME insomnia 05/17/24 08/17/24 08/14/24 History calcium 600 mg (as 1 tab PO BID 07/29/24 08/17/24 08/14/24 History carbonate)-vitamin D3 10 mcg (400 unit) tablet cholecalciferol (vitamin D3) 25 25 mcg PO DAILY 07/29/24 08/17/24 08/14/24 History mcg (1,000 unit) tablet (Vitamin D3) fluticasone propionate 230 2 puff inhalation BID 07/29/24 08/17/24 08/14/24 History mcg-salmeterol 21 mcg/actuation HFA inhaler (Advair HFA) acetaminophen 500 mg tablet 500 mg PO Q6H PRN Pain 08/15/24 08/15/24 08/14/24 History fluticasone propionate 50 2 spray intranasal DAILY 08/15/24 08/17/24 08/14/24 History mcg/actuation nasal spray,suspension haloperidol 5 mg tablet 5 mg PO TID 08/15/24 08/17/24 08/14/24 History haloperidol decanoate 100 mg/mL 75 mg IM Q28D 08/15/24 08/17/24 08/14/24 History intramuscular solution lidocaine 5 % topical patch 1 patch topical DAILY 08/15/24 08/15/24 08/14/24 History nicotine (polacrilex) 2 mg gum 2 mg PO Q2H PRN Cravings 08/15/24 08/15/24 1 History polyethylene glycol 3350 17 17 g PO DAILY PRN Constipation 08/15/24 08/15/24 08/14/24 History gram/dose oral powder (Miralax) prazosin 1 mg capsule 1 mg PO BEDTIME 12/08/17/24 08/14/24 History budesonide-formoterol HFA 160 2 puff inhalation BID 08/17/24 08/17/24 Unknown History mcg-4.5 mcg/actuation aerosol inhaler (Symbicort) Exam Height,Weight and Vital Signs: Height 8164 ft 3 in Weight 81.647 kg Last Vital Signs Temp 97.1 F 08/25/24 06:58 Pulse 99 08/25/24 06:58 Resp 16 08/25/24 06:58 BP 142/91 H 08/25/24 06:58 Pulse Ox 97 08/25/24 06:58 O2 Del Method Room Air 08/25/24 06:58 Pertinent Lab Results Pertinent Lab Results: Laboratory Tests 08/16/24 08/16/24 08/17/24 21:21 22:04 19:01 WBC 7.6 RBC 3.93 L Hgb 11.8 L Hct 35.5 L MCV 90.3 MCH 30.0 MCHC 33.2 RDW 12.3 Plt Count 238 MPV 11.1 Immature Gran % (Auto) 0.3 Neut % (Auto) 76.3 H Lymph % (Auto) 15.7 L Ward % (Auto) 6.9 Eos % (Auto) 0.5 Baso % (Auto) 0.3 Lymph # (Auto) 1.2 Ward # (Auto) 0.5 Eos # (Auto) 0.0 Baso # (Auto) 0.0 Abs Immat Gran (auto) 0.02 Absolute Neuts (auto) 5.8 Absolute Nucleated RBC 0.000 Nucleated RBC % (auto) 0.0 Smear Tech's Comments VERIFIED Hold Purple Top Sodium 138 139 Potassium 3.9 3.6 Chloride 109 H 109 H Carbon Dioxide 24 23 Anion Gap 9 L 11 L BUN 8 L 7 L Creatinine 0.72 0.80 Estim Creat Clear Calc 107.2 96.5 Estimated GFR > 60 > 60 Random Glucose 100 83 Calcium 8.9 D 8.9 Magnesium 1.8 Total Bilirubin 0.2 0.2 Direct Bilirubin < 0.2 AST 18 15 ALT 17 12 Alkaline Phosphatase 54 55 Total Protein 6.7 6.8 Albumin 3.9 4.0 Triglycerides Cholesterol LDL Cholesterol, Calc HDL Cholesterol Urine Color Urine Appearance Urine pH Ur Specific [place] Urine Protein Urine Glucose (UA) Urine Ketones Urine Blood Urine Nitrite Ur Leukocyte Esterase Urine Test NEGATIVE Urine Opiates Screen Not Detected Ur Buprenorphine Scrn Not Detected Ur Oxycodone Screen Not Detected Urine Methadone Screen Not Detected Urine Fentanyl Screen Not Detected Ur Barbiturates Screen Not Detected Ur Phencyclidine Scrn Not Detected Ur Amphetamines Screen Not Detected U Benzodiazepines Scrn Not Detected Dorothy 0.83 Urine Cocaine Screen Not Detected U Marijuana (THC) Screen POSITIVE H Ethyl Alcohol < 10 08/17/24 08/18/24 08/24/24 19:03 11:19 15:03 WBC RBC Hgb Hct MCV MCH MCHC RDW Plt Count MPV Immature Gran % (Auto) Neut % (Auto) Lymph % (Auto) Ward % (Auto) Eos % (Auto) Baso % (Auto) Lymph # (Auto) Ward # (Auto) Eos # (Auto) Baso # (Auto) Abs Immat Gran (auto) Absolute Neuts (auto) Absolute Nucleated RBC Nucleated RBC % (auto) Smear Tech's Comments Hold Purple Top SEE NOTE Sodium Potassium Chloride Carbon Dioxide Anion Gap BUN Creatinine Estim Creat Clear Calc Estimated GFR Random Glucose Calcium Magnesium Total Bilirubin Direct Bilirubin AST ALT Alkaline Phosphatase Total Protein Albumin Triglycerides 87 Cholesterol 153 LDL Cholesterol, Calc 89 HDL Cholesterol 47 Urine Color Yellow Urine Appearance Clear Urine pH 7.5 Ur Specific [place] <= 1.005 Urine Protein Negative Urine Glucose (UA) Negative Urine Ketones Negative Urine Blood Negative Urine Nitrite Negative Ur Leukocyte Esterase Negative Urine Test Urine Opiates Screen Ur Buprenorphine Scrn Ur Oxycodone Screen Urine Methadone Screen Urine Fentanyl Screen Ur Barbiturates Screen Ur Phencyclidine Scrn Ur Amphetamines Screen U Benzodiazepines Scrn Dorothy 0.84 Urine Cocaine Screen U Marijuana (THC) Screen Ethyl Alcohol Airway Mallampati Class: II TM Dist: >3cm Neck ROM: Full Heart: rrr Lungs: cta Assessment and Plan Assessment Anesthesia Assessment: Anesthesia Plan Discussed and Chart Reviewed Final Anesthetic Review Family History of Problems with Anesthesia: No History of Problems with Anesthesia: No NPO: Yes ASA Class: III Final Preanesthetic Review: No Changes in Pt Med Stat, Meds/Allgs Chart Reviewed and Consent Obtained/Reviewed Patient Risk: Intermediate Procedure Risk: Intermediate Anesthetic Plan Anesthetic Plan: GA Disposition: Standard PACU
[2024-08-25] MEDS: Lactated Ringers 1,000 ML 50 ML IVCONT (07:15)
--- NOTE | 2024-08-25 07:38 | HO.ECTPROC ---
ECT Procedure Note Diagnosis/Treatment Date of Service: 08/25/24 Diagnosis: Schizoaffective Disorder Previous ECT Date: 08/14/24 Treatment: Maintenance Interval Clinical Notes: The patient is currenlty inpatient, more depressed after the passing of her adoptive father. Still dysphoric but slightly better since ECT is more intesiive, no side effects with previous ECT. ECT done as usual, no complicaitons, woke up well. Time: Total time managing care of this patient today ____ minutes. ECT Settings Device: THYMATRON DGx Electrode Placement: Bitemporal Program/Pulse Width: 0.50 Energy Percent: 100 Seizure Duration By EEG (in seconds): 0 (EEG didn'r recognize seizure, seizure activity until 18s) By Motor Observation (in seconds): 14 Medications Administration General Anesthetic: Etomidate (14) Muscle Relaxant: Succinylcholine (100) Ancillary Medications Analgesics: Torodol - Pre ECT Anti-emetics: Zofran - Pre ECT Airway Management Airway Management: Bag Mask Ventilation Treatment Recommendations No Changes Recommended: No change Pt Tolerated Procedure w/o Issue: Yes
[2024-08-25] MEDS: cloNIDine HCL 0.1 MG TABLET PO ×3 (09:18→21:28)
[2024-08-25] MEDS: Loratadine 10 MG TABLET PO (09:18)
[2024-08-25] MEDS: DULoxetine HCl 60 MG CAPSULE.DR PO (09:18)
[2024-08-25] MEDS: Calcium + Vitamin D 250 MG TABLET PO ×2 (09:18→21:28)
[2024-08-25] MEDS: Cholecalciferol (Vitamin D3) 25 MCG TABLET PO (09:19)
[2024-08-25] MEDS: HaloperidoL 5 MG TABLET PO ×4 (09:19→23:42)
[2024-08-25] MEDS: buPROPion HCl XL 150 MG TAB.ER.24H PO (09:19)
[2024-08-25] MEDS: Multivitamin TABLET 1 TAB PO (09:19)
[2024-08-25] MEDS: Benztropine Mesylate 0.5 MG TABLET PO ×2 (09:20→21:28)
[2024-08-25] MEDS: Fluticasone/Vilanterol 200/25 BLST.W.DEV 1 PUFF INHALE (09:20)
[2024-08-25] MEDS: Fluticasone Propionate Nasal 16 GM SPRAY 2 SPRAY NOSTRIL-B (09:20)
[2024-08-25] MEDS: Lithium Carbonate 300 MG CAPSULE PO ×2 (09:20→21:28)
[2024-08-25] MEDS: OLANZapine 10 MG VIAL 5 MG IM ×3 (10:36→21:19)
[2024-08-25] MEDS: Lactulose 20 GM/30 ML SOLUTION 40 GM PO (10:36)
[2024-08-25] MEDS: LORazepam 2 MG/ML VIAL 1 MG IM ×2 (10:38→15:09)
[2024-08-25] MEDS: Acetaminophen 325 MG TABLET 650 MG PO ×2 (10:50→22:26)
--- NOTE | 2024-08-25 12:39 | HO.PSYCHPN ---
Subjective Subjective Date of Service: 08/25/24 Reason For Visit: SI Interim History: calm, cooperative. expressing fear of particular peer, asking for IM zyprexa and ativan. had ECT this morning, no complaints aside from port. per staff, +AH. using lots of PRNs, IMs. slept 5.5 hours. had ECT this morning. Mental Status Exam Mental Status Exam Narrative: Pt is alert and oriented; behavior is cooperative and calm; dressed in casual attire with unkempt hair; eye contact appropriate; Speech is decr rate, volume and prosody and not pressured; no psychomotor agitation/retardation present; thought process is organized and goal directed; Thought content is on constipation, fear of peer; otherwise pertinent to relevant topics and without any delusional content, paranoid ideations or grandiosity; no SI/SIBI/HI/AVH expressed. Patients insight and judgment are fair. Diagnostics Vital Signs (24Hr): Vital Signs - 24 hr 08/24/24 14:45 08/24/24 22:10 08/25/24 05:55 Temperature 98.0 F 97.2 F Pulse Rate 84 96 Respiratory Rate 18 18 Blood Pressure 119/71 136/82 147/99 H Pulse Oximetry 96 97 Oxygen Delivery Method Room Air Oxygen Flow Rate 08/25/24 06:58 08/25/24 07:44 08/25/24 07:45 Temperature 97.1 F 98.4 F Pulse Rate 99 92 95 Respiratory Rate 16 16 16 Blood Pressure 142/91 H 144/88 H 153/80 H Pulse Oximetry 97 94 94 Oxygen Delivery Method Room Air Nasal Cannula with ETCO2 Nasal Cannula with ETCO2 Oxygen Flow Rate 4 4 08/25/24 07:50 08/25/24 07:55 08/25/24 08:06 Temperature 97.3 F Pulse Rate 95 92 92 Respiratory Rate 16 16 16 Blood Pressure 133/84 135/79 134/96 H Pulse Oximetry 94 94 97 Oxygen Delivery Method Nasal Cannula with ETCO2 Nasal Cannula with ETCO2 Room Air Oxygen Flow Rate 4 4 08/25/24 08:26 08/25/24 08:28 08/25/24 09:18 Temperature 98.2 F 98.2 F Pulse Rate 82 82 Respiratory Rate 18 18 Blood Pressure 103/53 L 103/53 L 124/76 Pulse Oximetry 95 95 Oxygen Delivery Method Room Air Oxygen Flow Rate BMI result Body Mass Index 31.9 Labs 08/16/24 21:21 08/17/24 19:01 Labs: Laboratory Results - last 48 hr 08/24/24 15:03 Urine Color Yellow Urine Appearance Clear Urine pH 7.5 Ur Specific [place] <= 1.005 Urine Protein Negative Urine Glucose (UA) Negative Urine Ketones Negative Urine Blood Negative Urine Nitrite Negative Ur Leukocyte Esterase Negative Imaging Radiology Impressions: ITS Impressions KUB X-Ray 08/22/24 11:41 IMPRESSION: Mild constipation. Electronically signed by: Bry Cox MD 08/22/2024 12:00 PM [facility] Medications Medications Current Medications Acetaminophen (Acetaminophen 325 Mg Tablet) 650 mg PO Q6H PRN PRN Reason: Headache/Pain Mild Scale (1-3) Last Admin: 08/25/24 10:50 Dose: 650 mg Al Hydroxide/Mg Hydroxide (Magnesium Hydrox/Alum Hydrox 30 Ml Oral.Susp) 30 ml PO Q6H PRN PRN Reason: Heartburn/Nausea Last Admin: 08/21/24 19:21 Dose: 30 ml Albuterol Sulfate (Albuterol Sulfate 90 Mcg 8 Gm Inhaler) 2 puff INHALE RQID PRN PRN Reason: wheezing Last Admin: 08/24/24 12:22 Dose: 2 puff Benztropine Mesylate (Benztropine Mesylate 0.5 Mg Tablet) 0.5 mg PO BID [facility] Last Admin: 08/25/24 09:20 Dose: 0.5 mg Bupropion HCl (Bupropion Hcl Xl 150 Mg Tab.Er.24h) 150 mg PO DAILY [facility] Last Admin: 08/25/24 09:19 Dose: 150 mg Calcium Carbonate/Cholecalciferol (Calcium + Vitamin D 250 Mg Tablet) 250 mg PO BID [facility] Last Admin: 08/25/24 09:18 Dose: 250 mg Clonidine HCl (Clonidine Hcl 0.1 Mg Tablet) 0.1 mg PO TID [facility]; Protocol Last Admin: 08/25/24 09:18 Dose: 0.1 mg Diphenhydramine HCl (Diphenhydramine Hcl 25 Mg Capsule) 100 mg PO BEDTIME [facility] Last Admin: 08/24/24 22:32 Dose: 100 mg Duloxetine HCl (Duloxetine Hcl 60 Mg Capsule.Dr) 60 mg PO DAILY [facility] Last Admin: 08/25/24 09:18 Dose: 60 mg Fluticasone Propionate (Fluticasone Propionate Nasal 16 Gm [place]) 2 spray NOSTRIL-B DAILY [facility] Last Admin: 08/25/24 09:20 Dose: 2 spray Fluticasone/Vilanterol (Fluticasone/Vilanterol 200/25 Blst.W.Dev) 1 puff INHALE RDAILY [facility] Last Admin: 08/25/24 09:20 Dose: 1 puff Haloperidol (Haloperidol 5 Mg Tablet) 5 mg PO TID [facility] Last Admin: 08/25/24 09:19 Dose: 5 mg Haloperidol (Haloperidol 5 Mg Tablet) 5 mg PO BID PRN PRN Reason: Psychosis Last Admin: 08/24/24 23:20 Dose: 5 mg Haloperidol Decanoate (Haloperidol Decanoate 50 Mg/Ml Vial) 75 mg IM Q28D [facility] Ibuprofen (Ibuprofen 600 Mg Tablet) 600 mg PO TID PRN PRN Reason: arthritis Last Admin: 08/22/24 11:02 Dose: 600 mg Lactulose (Lactulose 20 Gm/30 Ml Solution) 30 gm PO DAILY PRN PRN Reason: Constipation Last Admin: 08/23/24 11:34 Dose: 30 gm [place] Carbonate ([place] Carbonate 300 Mg Capsule) 300 mg PO BID [facility] Last Admin: 08/25/24 09:20 Dose: 300 mg Loratadine (Loratadine 10 Mg Tablet) 10 mg PO DAILY [facility] Last Admin: 08/25/24 09:18 Dose: 10 mg Lorazepam (Lorazepam 1 Mg Tablet) 1 mg PO TID PRN PRN Reason: anxiety/agitation Last Admin: 08/24/24 11:54 Dose: 1 mg Magnesium Hydroxide (Milk Of Magnesia 30 Ml Oral.Susp) 30 ml PO DAILY PRN PRN Reason: Constipation Last Admin: 08/17/24 19:32 Dose: 30 ml Multivitamins/Vitamin C (Multivitamin Tablet) 1 tab PO DAILY [facility] Last Admin: 08/25/24 09:19 Dose: 1 tab Nicotine Polacrilex (Nicotine Polacrilex 2 Mg Gum) 2 mg BUCCAL Q1H PRN PRN Reason: Nicotine Cravings Omeprazole (Omeprazole 20 Mg Capsule.Dr) 20 mg PO Q48H [facility] Last Admin: 08/24/24 09:18 Dose: 20 mg Polyethylene Glycol (Polyethylene Glycol 3350 17 Gm Powd.Pack) 17 gm PO DAILY PRN PRN Reason: Constipation Last Admin: 08/18/24 21:25 Dose: 17 gm Prazosin HCl (Prazosin Hcl 1 Mg Capsule) 1 mg PO BEDTIME [facility]; Protocol Last Admin: 08/24/24 22:32 Dose: 1 mg Prazosin HCl (Prazosin Hcl 5 Mg Capsule) 15 mg PO BEDTIME [facility]; Protocol Last Admin: 08/24/24 22:32 Dose: 15 mg Sodium Biphosphate/Sodium Phosphate (Sodium Phosphate,[place]-Dibasic 133 Ml Enema) 133 ml OR ONCE PRN PRN Reason: constipation Last Admin: 08/23/24 22:40 Dose: 133 ml Sodium Biphosphate/Sodium Phosphate (Sodium Phosphate,[place]-Dibasic 133 Ml Enema) 133 ml OR DAILY PRN PRN Reason: Constipation Sodium Chloride (0.9 % Sodium Chloride Flush 10 Ml Syringe) 5 ml IVFLUSH QSHIFT [facility] Trazodone HCl (Trazodone Hcl 100 Mg Tablet) 200 mg PO BEDTIME [facility] Last Admin: 08/24/24 22:32 Dose: 200 mg Vitamin D (Cholecalciferol (Vitamin D3) 25 Mcg Tablet) 25 mcg PO DAILY [facility] Last Admin: 08/25/24 09:19 Dose: 25 mcg Zolpidem Tartrate (Zolpidem Tartrate 5 Mg Tablet) 5 mg PO BEDTIME [facility] Last Admin: 08/24/24 21:03 Dose: Not Given Allergies Allergies Allergy/AdvReac Type Severity Reaction Status Date / Time carbamazepine [From TEGRETOL] AdvReac Mild Nausea and Verified 08/16/24 20:32 Vomiting topiramate [From Topamax] AdvReac Mild Nausea and Verified 08/16/24 20:32 Vomiting Assessment & Plan Assessment & Plan (1) Pre-op evaluation: Status: Acute Code(s): Z01.818 - Encounter for other preprocedural examination Assessment and Plan: Pt is a 39-year-old female with a PMH significant for COPD/asthma overlap syndrome, GERD, PTSD, schizoaffective disorder, and borderline personality disorder admitted to Psychiatric unit for increasing depression after father's recent passing. Consult placed to hospitalist services for ECT risk stratification. ECT pre-op evaluation Patient has undergone ECT multiple times in the past without incident, most recently outpatient 2 weeks ago Review of EKG without ischemic changes or prolonged QTc; currently denies chest pain/pressure or palpitations No previous known difficulties with anesthesia Revised cardiac risk index: 0 points Based on patient history and exam, there are no medical contraindications to patient undergoing ECT Thank you for allowing us to participate in the care of this patient. Signing off at this time. Please re-consult if any acute complaints or issues arise. (2) MDD (major depressive disorder), recurrent, severe, with psychosis: Status: Acute Code(s): F33.3 - Major depressive disorder, recurrent, severe with psychotic symptoms (3) Chronic post-traumatic stress disorder (PTSD): Status: Chronic Code(s): F43.12 - Post-traumatic stress disorder, chronic (4) Borderline personality disorder: Status: Chronic Code(s): F60.3 - Borderline personality disorder Plan 08/18: continue outpt regimen. continue ECT next if still inpatient. continue CO for safety. 08/20: patient looking foward to ECt as it helped in past 08/21: upset ECT bumped from wed to wednesday. accusing staff of not caring about her. head-banging after being made aware. 08/22: calm today. c/o constipation. KUB and enema ordered. awaiting ECT wednesday. no complaints or requests otherwise. 08/23: got IMs this morning due to not liking her 1:1 and feeling upset about that. informed ECT at 0800 wednesday. will take lactulose for continued constipation; small BM yesterday post-enema. 08/24: IMs yesterday evening, also today. hold wellbutrin. no benzos after 5. ECT scheduled for tomorrow morning at 8. continue current mgmt otherwise. 08/25: ECT completed successfully. fearful of peer. asking for zyprexa and ativan IM to manage anxiety. not happy about protruding port. no other complaints or requests. continue current mgmt. next ECT for wednesday. after discussion with lulu, will plan for weekly ECT outpt x 3 weeks after discharge. Reason for continued inpatient stay Substantial Risk for: harm to self and rapid decompensation Time Spent With Patient Time: Total time managing care of this patient today _35___ minutes.
[2024-08-25] MEDS: bisacodyL 5 MG TABLET.DR 10 MG PO (14:28)
[2024-08-25] MEDS: 0.9 % Sodium Chloride Flush 10 ML SYRINGE 5 ML IVFLUSH ×2 (16:04→23:41)
[2024-08-25] MEDS: LORazepam 2 MG/ML VIAL IM (21:18)
[2024-08-25] MEDS: diphenhydrAMINE HCL 25 MG CAPSULE 100 MG PO (21:26)
[2024-08-25] MEDS: traZODone HCL 100 MG TABLET 200 MG PO (21:27)
[2024-08-25] MEDS: Prazosin HCL 1 MG CAPSULE PO (21:27)
[2024-08-25] MEDS: Prazosin HCL 5 MG CAPSULE 15 MG PO (21:27)
[2024-08-25] MEDS: Zolpidem Tartrate 5 MG TABLET PO (21:28)
[2024-08-25] MEDS: LORazepam 1 MG TABLET PO (23:42)
[2024-08-25] MEDS: Cocoa Butter/Zinc Oxide SUPP.RECT 1 SUPP PR (23:43)
[2024-08-26] VITALS (7 sets, daily range): BP systolic 113–127; BP diastolic 66–91; PULSE 90–101; RESP 16–18; TEMP 36.3; O2SAT 98
[2024-08-26] MEDS: Albuterol Sulfate 90 MCG 8 GM INHALER 2 PUFF INHALE (02:02)
[2024-08-26] MEDS: Lactulose 20 GM/30 ML SOLUTION 30 GM PO (06:06)
[2024-08-26] MEDS: LORazepam 1 MG TABLET PO ×2 (06:07→23:36)
[2024-08-26] MEDS: polyethylene glycoL 3350 17 GM POWD.PACK PO ×5 (06:07→14:08)
[2024-08-26] MEDS: Omeprazole 20 MG CAPSULE.DR PO (06:07)
[2024-08-26] MEDS: HaloperidoL 5 MG TABLET PO ×5 (06:08→23:36)
--- NOTE | 2024-08-26 06:47 | PC.NURSE ---
brief bloody nose on awakening
[2024-08-26] MEDS: DULoxetine HCl 60 MG CAPSULE.DR PO (09:34)
[2024-08-26] MEDS: Calcium + Vitamin D 250 MG TABLET PO ×2 (09:34→21:35)
[2024-08-26] MEDS: Loratadine 10 MG TABLET PO (09:35)
[2024-08-26] MEDS: cloNIDine HCL 0.1 MG TABLET PO ×3 (09:35→21:36)
[2024-08-26] MEDS: Benztropine Mesylate 0.5 MG TABLET PO ×2 (09:35→21:37)
[2024-08-26] MEDS: buPROPion HCl XL 150 MG TAB.ER.24H PO (09:35)
[2024-08-26] MEDS: Lithium Carbonate 300 MG CAPSULE PO ×2 (09:35→21:37)
[2024-08-26] MEDS: Multivitamin TABLET 1 TAB PO (09:35)
[2024-08-26] MEDS: Cholecalciferol (Vitamin D3) 25 MCG TABLET PO (09:35)
[2024-08-26] MEDS: Fluticasone/Vilanterol 200/25 BLST.W.DEV 1 PUFF INHALE (09:35)
[2024-08-26] MEDS: 0.9 % Sodium Chloride Flush 10 ML SYRINGE 5 ML IVFLUSH ×3 (09:40→23:13)
[2024-08-26] MEDS: Fluticasone Propionate Nasal 16 GM SPRAY 2 SPRAY NOSTRIL-B (09:50)
[2024-08-26] MEDS: Sodium Phosphate,Mono-Dibasic 133 ML ENEMA PR ×2 (10:31→15:24)
[2024-08-26] MEDS: Haloperidol Decanoate 50 MG/ML VIAL 75 MG IM (10:31)
[2024-08-26] MEDS: LORazepam 2 MG/ML VIAL IM ×2 (15:24→21:27)
[2024-08-26] MEDS: OLANZapine 10 MG VIAL 5 MG IM (15:25)
--- NOTE | 2024-08-26 16:24 | PC.NURSE ---
Pt continued to report constipation with abdominal pain. notified. Pt received fleet enema at 1031 with no effect. New order for Miralax Q30min x4 doses given with no effect. Pt received an additional fleet enema at 1524. Pt did report having a hard BM and then a second soft BM. Will continue to monitor.
--- NOTE | 2024-08-26 19:09 | P.PNPSI_ITS ---
Subjective Subjective Date of Service: 08/26/24 Reason For Visit: SI Interim History: Met with patient; discussed with team Patient struggling with urges for self-harm however reach out to staff and asking for PRNs. Explained to typewriter assembly and parts inspector that her father recently and that was enough to feel the need to return to the hospital. However she says she is processing her feelings and coping and feels like she is getting better. Patient complains of constipation, no bowel movement for over a week; can not tolerate Mag citrate but agrees to MiraLax and Fleet enema Mental Status Exam Mental Status Exam Narrative: Pt is alert and oriented; behavior is mostly cooperative and calm though with intermittent head banging and superficial self-harm; dressed in casual attire with unkempt hair; eye contact appropriate; Speech is normal rate,, volume and prosody and not pressured; some intermittent psychomotor agitation and retardation present; thought process is organized and goal directed; Thought content is on processing her feelings over father; constipation, treatment; otherwise pertinent to relevant topics and without any delusional content, paranoid ideations or grandiosity; no SI/HI; continues to have intermittent self-harming urges; no AVH. Patients insight and judgment are impaired but improving Diagnostics Vital Signs (24Hr): Vital Signs - 24 hr 08/25/24 21:25 08/26/24 08:00 08/26/24 09:35 Temperature 98.4 F Pulse Rate 83 101 H Respiratory Rate 18 18 Blood Pressure 117/77 127/91 H 127/91 H Pulse Oximetry 97 Oxygen Delivery Method Room Air 08/26/24 14:09 Temperature Pulse Rate Respiratory Rate Blood Pressure 113/66 Pulse Oximetry Oxygen Delivery Method BMI result Body Mass Index 31.9 Labs 08/16/24 21:21 08/17/24 19:01 Imaging Radiology Impressions: ITS Impressions KUB X-Ray 08/22/24 11:41 IMPRESSION: Mild constipation. Electronically signed by: Bry Cox MD 08/22/2024 12:00 PM [facility] Medications Medications Current Medications Acetaminophen (Acetaminophen 325 Mg Tablet) 650 mg PO Q6H PRN PRN Reason: Headache/Pain Mild Scale (1-3) Last Admin: 08/25/24 22:26 Dose: 650 mg Al Hydroxide/Mg Hydroxide (Magnesium Hydrox/Alum Hydrox 30 Ml Oral.Susp) 30 ml PO Q6H PRN PRN Reason: Heartburn/Nausea Last Admin: 08/21/24 19:21 Dose: 30 ml Albuterol Sulfate (Albuterol Sulfate 90 Mcg 8 Gm Inhaler) 2 puff INHALE RQID PRN PRN Reason: wheezing Last Admin: 08/26/24 02:02 Dose: 2 puff Benztropine Mesylate (Benztropine Mesylate 0.5 Mg Tablet) 0.5 mg PO BID [facility] Last Admin: 08/26/24 09:35 Dose: 0.5 mg Bupropion HCl (Bupropion Hcl Xl 150 Mg Tab.Er.24h) 150 mg PO DAILY [facility] Last Admin: 08/26/24 09:35 Dose: 150 mg Calcium Carbonate/Cholecalciferol (Calcium + Vitamin D 250 Mg Tablet) 250 mg PO BID [facility] Last Admin: 08/26/24 09:34 Dose: 250 mg Clonidine HCl (Clonidine Hcl 0.1 Mg Tablet) 0.1 mg PO TID [facility]; Protocol Last Admin: 08/26/24 14:09 Dose: 0.1 mg [place] Butter/Zinc Oxide ([place] Butter/Zinc Oxide Supp.Rect) 1 supp ID BID PRN PRN Reason: Hemorrhoids Last Admin: 08/25/24 23:43 Dose: 1 supp Diphenhydramine HCl (Diphenhydramine Hcl 25 Mg Capsule) 100 mg PO BEDTIME [facility] Last Admin: 08/25/24 21:26 Dose: 100 mg Duloxetine HCl (Duloxetine Hcl 60 Mg Capsule.Dr) 60 mg PO DAILY [facility] Last Admin: 08/26/24 09:34 Dose: 60 mg Fluticasone Propionate (Fluticasone Propionate Nasal 16 Gm [place]) 2 spray NOSTRIL-B DAILY [facility] Last Admin: 08/26/24 09:50 Dose: 2 spray Fluticasone/Vilanterol (Fluticasone/Vilanterol 200/25 Blst.W.Dev) 1 puff INHALE RDAILY [facility] Last Admin: 08/26/24 09:35 Dose: 1 puff Haloperidol (Haloperidol 5 Mg Tablet) 5 mg PO TID [facility] Last Admin: 08/26/24 14:09 Dose: 5 mg Haloperidol (Haloperidol 5 Mg Tablet) 5 mg PO BID PRN PRN Reason: Psychosis Last Admin: 08/26/24 06:08 Dose: 5 mg Haloperidol Decanoate (Haloperidol Decanoate 50 Mg/Ml Vial) 75 mg IM Q28D [facility] Last Admin: 08/26/24 10:31 Dose: 75 mg Ibuprofen (Ibuprofen 600 Mg Tablet) 600 mg PO TID PRN PRN Reason: arthritis Last Admin: 08/22/24 11:02 Dose: 600 mg Lactulose (Lactulose 20 Gm/30 Ml Solution) 30 gm PO DAILY PRN PRN Reason: Constipation Last Admin: 08/26/24 06:06 Dose: 30 gm [place] Carbonate ([place] Carbonate 300 Mg Capsule) 300 mg PO BID [facility] Last Admin: 08/26/24 09:35 Dose: 300 mg Loratadine (Loratadine 10 Mg Tablet) 10 mg PO DAILY [facility] Last Admin: 08/26/24 09:35 Dose: 10 mg Lorazepam (Lorazepam 1 Mg Tablet) 1 mg PO TID PRN PRN Reason: anxiety/agitation Magnesium Hydroxide (Milk Of Magnesia 30 Ml Oral.Susp) 30 ml PO DAILY PRN PRN Reason: Constipation Last Admin: 08/17/24 19:32 Dose: 30 ml Multivitamins/Vitamin C (Multivitamin Tablet) 1 tab PO DAILY [facility] Last Admin: 08/26/24 09:35 Dose: 1 tab Nicotine Polacrilex (Nicotine Polacrilex 2 Mg Gum) 2 mg BUCCAL Q1H PRN PRN Reason: Nicotine Cravings Omeprazole (Omeprazole 20 Mg Capsule.Dr) 20 mg PO Q48H [facility] Last Admin: 08/26/24 06:07 Dose: 20 mg Polyethylene Glycol (Polyethylene Glycol 3350 17 Gm Powd.Pack) 17 gm PO DAILY PRN PRN Reason: Constipation Last Admin: 08/26/24 06:07 Dose: 17 gm Polyethylene Glycol (Polyethylene Glycol 3350 17 Gm Powd.Pack) 17 gm PO QID [facility] Last Admin: 08/26/24 14:08 Dose: 17 gm Prazosin HCl (Prazosin Hcl 1 Mg Capsule) 1 mg PO BEDTIME [facility]; Protocol Last Admin: 08/25/24 21:27 Dose: 1 mg Prazosin HCl (Prazosin Hcl 5 Mg Capsule) 15 mg PO BEDTIME [facility]; Protocol Last Admin: 08/25/24 21:27 Dose: 15 mg Sodium Biphosphate/Sodium Phosphate (Sodium Phosphate,[place]-Dibasic 133 Ml Enema) 133 ml ID DAILY PRN PRN Reason: Constipation Last Admin: 08/26/24 10:31 Dose: 133 ml Sodium Chloride (0.9 % Sodium Chloride Flush 10 Ml Syringe) 5 ml IVFLUSH QSHIFT [facility] Last Admin: 08/26/24 15:37 Dose: 5 ml Trazodone HCl (Trazodone Hcl 100 Mg Tablet) 200 mg PO BEDTIME [facility] Last Admin: 08/25/24 21:27 Dose: 200 mg Vitamin D (Cholecalciferol (Vitamin D3) 25 Mcg Tablet) 25 mcg PO DAILY [facility] Last Admin: 08/26/24 09:35 Dose: 25 mcg Allergies Allergies Allergy/AdvReac Type Severity Reaction Status Date / Time carbamazepine [From TEGRETOL] AdvReac Mild Nausea and Verified 08/16/24 20:32 Vomiting topiramate [From Topamax] AdvReac Mild Nausea and Verified 08/16/24 20:32 Vomiting Assessment & Plan Assessment & Plan (1) Pre-op evaluation: Status: Acute Code(s): Z01.818 - Encounter for other preprocedural examination Assessment and Plan: Pt is a 39-year-old female with a PMH significant for COPD/asthma overlap syndrome, GERD, PTSD, schizoaffective disorder, and borderline personality disorder admitted to Psychiatric unit for increasing depression after father's recent passing. Consult placed to hospitalist services for ECT risk stratification. ECT pre-op evaluation Patient has undergone ECT multiple times in the past without incident, most recently outpatient 2 weeks ago Review of EKG without ischemic changes or prolonged QTc; currently denies chest pain/pressure or palpitations No previous known difficulties with anesthesia Revised cardiac risk index: 0 points Based on patient history and exam, there are no medical contraindications to patient undergoing ECT Thank you for allowing us to participate in the care of this patient. Signing off at this time. Please re-consult if any acute complaints or issues arise. (2) MDD (major depressive disorder), recurrent, severe, with psychosis: Status: Acute Code(s): F33.3 - Major depressive disorder, recurrent, severe with psychotic symptoms (3) Chronic post-traumatic stress disorder (PTSD): Status: Chronic Code(s): F43.12 - Post-traumatic stress disorder, chronic (4) Borderline personality disorder: Status: Chronic Code(s): F60.3 - Borderline personality disorder Plan 08/18: continue outpt regimen. continue ECT next wed if still inpatient. continue CO for safety. 08/20: patient looking foward to ECt as it helped in past 08/21: upset ECT bumped from wed to wednesday. accusing staff of not caring about her. head-banging after being made aware. 08/22: calm today. c/o constipation. KUB and enema ordered. awaiting ECT wednesday. no complaints or requests otherwise. 08/23: got IMs this morning due to not liking her 1:1 and feeling upset about that. informed ECT at 0800 wednesday. will take lactulose for continued constipation; small BM yesterday post-enema. 08/24: IMs yesterday evening, also today. hold wellbutrin. no benzos after . ECT scheduled for tomorrow morning at 8. continue current mgmt otherwise. 08/25: ECT completed successfully. fearful of peer. asking for zyprexa and ativan IM to manage anxiety. not happy about protruding port. no other complaints or requests. continue current mgmt. next ECT for wednesday. after discussion with lulu, will plan for weekly ECT outpt x 3 weeks after discharge. 08/26 Patient struggling with urges for self-harm however reach out to staff and asking for PRNs. Explained to typewriter assembly and parts inspector that her father recently and that was enough to feel the need to return to the hospital. However she says she is processing her feelings and coping and feels like she is getting better. Expresses gratitude that she will be getting ECT on Wednesday. Patient complains of constipation, no bowel movement for over a week; can not tolerate Mag citrate but agrees to MiraLax and Fleet enema -MiraLax x4 and still no bowel movement; will add another enema p.r.n. Patient educated on: diagnosis, medication risk/benefits, ECT, therapeutic strategies and medical condition Informed Consent: understands Reason for continued inpatient stay Substantial Risk for: rapid decompensation Time Spent With Patient Time: Total time managing care of this patient today ____ minutes.
[2024-08-26] MEDS: OLANZapine 10 MG VIAL IM (21:27)
[2024-08-26] MEDS: Prazosin HCL 5 MG CAPSULE 15 MG PO (21:31)
[2024-08-26] MEDS: Prazosin HCL 1 MG CAPSULE PO (21:32)
[2024-08-26] MEDS: traZODone HCL 100 MG TABLET 200 MG PO (21:34)
[2024-08-26] MEDS: diphenhydrAMINE HCL 25 MG CAPSULE 100 MG PO (21:35)
[2024-08-27 10:00] VITALS: BP 120/58; PULSE 75; RESP 15; TEMP 36.8; O2SAT 97
[2024-08-27] MEDS: 0.9 % Sodium Chloride Flush 10 ML SYRINGE 5 ML IVFLUSH ×2 (10:07→17:48)
[2024-08-27] MEDS: Loratadine 10 MG TABLET PO (10:12)
[2024-08-27] MEDS: Multivitamin TABLET 1 TAB PO (10:13)
[2024-08-27] MEDS: buPROPion HCl XL 150 MG TAB.ER.24H PO (10:13)
[2024-08-27] MEDS: HaloperidoL 5 MG TABLET PO ×3 (10:13→20:56)
[2024-08-27] MEDS: Benztropine Mesylate 0.5 MG TABLET PO ×2 (10:13→20:56)
[2024-08-27] MEDS: Cholecalciferol (Vitamin D3) 25 MCG TABLET PO (10:13)
[2024-08-27] MEDS: DULoxetine HCl 60 MG CAPSULE.DR PO (10:13)
[2024-08-27] MEDS: Calcium + Vitamin D 250 MG TABLET PO ×2 (10:13→20:56)
[2024-08-27 10:14] VITALS: BP 120/58
[2024-08-27] MEDS: cloNIDine HCL 0.1 MG TABLET PO ×3 (10:14→20:55)
[2024-08-27] MEDS: polyethylene glycoL 3350 17 GM POWD.PACK PO ×2 (10:15→17:42)
[2024-08-27] MEDS: Fluticasone Propionate Nasal 16 GM SPRAY 2 SPRAY NOSTRIL-B (10:28)
[2024-08-27] MEDS: OLANZapine 10 MG VIAL IM (12:57)
[2024-08-27] MEDS: LORazepam 2 MG/ML VIAL IM (12:57)
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
[2024-08-27] MEDS: LORazepam 2 MG/ML VIAL 1 MG IM (17:13)
[2024-08-27] MEDS: OLANZapine 10 MG VIAL 5 MG IM ×2 (17:15→21:47)
[2024-08-27 17:40] VITALS: BP 129/68
[2024-08-27 20:30] VITALS: PULSE 100; RESP 18; TEMP 37.1; O2SAT 96
[2024-08-27] MEDS: diphenhydrAMINE HCL 25 MG CAPSULE 100 MG PO (20:54)
[2024-08-27 20:55] VITALS: BP 121/61
[2024-08-27] MEDS: traZODone HCL 100 MG TABLET 200 MG PO (20:55)
[2024-08-27] MEDS: Prazosin HCL 1 MG CAPSULE PO (20:56)
[2024-08-27] MEDS: Prazosin HCL 5 MG CAPSULE 15 MG PO (20:56)
[2024-08-28] VITALS (9 sets, daily range): BP systolic 114–166; BP diastolic 71–97; PULSE 64–112; RESP 14–22; TEMP 36.2–36.9; O2SAT 93–96
[2024-08-28] MEDS: 0.9 % Sodium Chloride Flush 10 ML SYRINGE 5 ML IVFLUSH ×2 (00:05→08:27)
[2024-08-28] MEDS: Lactated Ringers 1,000 ML 100 ML IVCONT (06:35)
--- NOTE | 2024-08-28 07:02 | MHC.SHP ---
Pre-Procedural Eval Section A - 24 Hr Update-Section A only Date of Service: 08/28/24 The patient is an INPATIENT: Yes Changes since office visit: No Cold of Flu in the past 2 weeks, No New Medical Problems, No Changes in Medication and No Patient answered all questions The patient has been examined within 24 hours of the surgical procedure. The History & Physical has been completed within 30 days and I have reviewed it.: Yes Section B - Complete if H&P > 30 days Chief Complaint: SI Allergies: Allergies Allergy/AdvReac Type Severity Reaction Status Date / Time carbamazepine [From TEGRETOL] AdvReac Mild Nausea and Verified 08/16/24 20:32 Vomiting topiramate [From Topamax] AdvReac Mild Nausea and Verified 08/16/24 20:32 Vomiting Plan I have reviewed the history and physical and performed a pertinent physical examination on my patient. No changes have occurred unless specified. Time Spent With Patient Time: Total time managing care of this patient today ____ minutes.
--- NOTE | 2024-08-28 07:34 | HO.ECTPROC ---
ECT Procedure Note Diagnosis/Treatment Date of Service: 08/28/24 Diagnosis: Schizoaffective Disorder Previous ECT Date: 08/25/24 Treatment: Maintenance Interval Clinical Notes: The patient reported improvement of depression, still dysphoric but not suicidal anymore. Probably she would be discharged today. No side effects with the previous ECT. ECT done as usual, no complications, woke up well. Time: Total time managing care of this patient today ____ minutes. ECT Settings Device: THYMATRON DGx Electrode Placement: Bitemporal Program/Pulse Width: 0.50 Energy Percent: 100 Seizure Duration By EEG (in seconds): 0 (EEG didn't registered seizure but there was seizure activity for 14s) By Motor Observation (in seconds): 0 Medications Administration General Anesthetic: Etomidate (14) Muscle Relaxant: Succinylcholine (80) Airway Management Airway Management: Bag Mask Ventilation Treatment Recommendations No Changes Recommended: No change Pt Tolerated Procedure w/o Issue: Yes
--- NOTE | 2024-08-28 09:15 | HO.ANESPROP2 ---
[facility] Active Problems Active Problems: All Active Problems Pre-op evaluation (Acute) Depression with suicidal ideation (Acute) MDD (major depressive disorder), recurrent, severe, with psychosis (Acute) Depression (Acute) Osteoarthritis of right knee (Acute) Chronic post-traumatic stress disorder (PTSD) (Chronic) Schizoaffective disorder, depressive type (Chronic) Borderline personality disorder (Chronic) Auditory hallucinations (Acute) Port-A-Cath in place (Acute) Intentional self-harm (Acute) COPD (chronic obstructive pulmonary disease) (Acute) Asthma (Acute) Adjustment disorder (Acute) Anxiety (Acute) Injury of ligament of right knee (Acute) Sprain of anterior cruciate ligament of right knee (Acute) Hernia (Chronic) Increased BMI (Acute) GERD (gastroesophageal reflux disease) (Acute) Past Medical History Medical History Pre-op evaluation MDD (major depressive disorder), recurrent, severe, with psychosis Port-A-Cath in place History of electroconvulsive therapy COVID-19 COVID-19 Sprain of left foot Chronic post-traumatic stress disorder (PTSD) COPD (chronic obstructive pulmonary disease) Increased BMI GERD (gastroesophageal reflux disease) Recurrent major depression-severe Acute post-traumatic stress disorder Injury, self-inflicted Suicidal ideation Self-harming behavior Intentional self-harm Suicidal ideation Borderline personality disorder Schizoaffective disorder Adjustment disorder Asthma Depression Anxiety PTSD (post-traumatic stress disorder) Functional capacity: independent ambulation Patient : No Family History Family History Mother Brain cancer Other No family history of cardiac disease Family history of problems with anesthesia: No Surgical History History of Problems with Anesthesia: No Social History Social History Household Members: Other Household Members Other:: group housemates Housing: Other Housing Other:: jail Do you presently have visiting nurse or other home services: No Unable to assess alcohol history related to: Unable to respond Alcohol intake: never Comment: 1:1 safety observation Patient Tobacco Use Status: Current everyday Tobacco user Tobacco use type: Cigarette Cigarette Packs Per Day: 0.5 Cigarettes Per Day: 10.0 Years Smoked: 15 e-Cigarette/Vaping Use: Former Use Second Hand Smoke Exposure: Yes Substance Use Type: Marijuana service: No Current occupation: rt handed Sexual orientation: Straight/Heterosexual Meds Allergies Allergy/AdvReac Type Severity Reaction Status Date / Time carbamazepine [From TEGRETOL] AdvReac Mild Nausea and Verified 08/16/24 20:32 Vomiting topiramate [From Topamax] AdvReac Mild Nausea and Verified 08/16/24 20:32 Vomiting Active Medications: Current Medications Acetaminophen (Acetaminophen 325 Mg Tablet) 650 mg PO Q6H PRN PRN Reason: Headache/Pain Mild Scale (1-3) Last Admin: 08/25/24 22:26 Dose: 650 mg Al Hydroxide/Mg Hydroxide (Magnesium Hydrox/Alum Hydrox 30 Ml Oral.Susp) 30 ml PO Q6H PRN PRN Reason: Heartburn/Nausea Last Admin: 08/21/24 19:21 Dose: 30 ml Albuterol Sulfate (Albuterol Sulfate 90 Mcg 8 Gm Inhaler) 2 puff INHALE RQID PRN PRN Reason: wheezing Last Admin: 08/26/24 02:02 Dose: 2 puff Benztropine Mesylate (Benztropine Mesylate 0.5 Mg Tablet) 0.5 mg PO BID [facility] Last Admin: 08/27/24 20:56 Dose: 0.5 mg Bupropion HCl (Bupropion Hcl Xl 150 Mg Tab.Er.24h) 150 mg PO DAILY [facility] Last Admin: 08/27/24 10:13 Dose: 150 mg Calcium Carbonate/Cholecalciferol (Calcium + Vitamin D 250 Mg Tablet) 250 mg PO BID [facility] Last Admin: 08/27/24 20:56 Dose: 250 mg Clonidine HCl (Clonidine Hcl 0.1 Mg Tablet) 0.1 mg PO TID [facility]; Protocol Last Admin: 08/27/24 20:55 Dose: 0.1 mg [place] Butter/Zinc Oxide (Macy Butter/Zinc Oxide Supp.Rect) 1 supp MA BID PRN PRN Reason: Hemorrhoids Last Admin: 08/25/24 23:43 Dose: 1 supp Diphenhydramine HCl (Diphenhydramine Hcl 25 Mg Capsule) 100 mg PO BEDTIME [facility] Last Admin: 08/27/24 20:54 Dose: 100 mg Duloxetine HCl (Duloxetine Hcl 60 Mg Capsule.Dr) 60 mg PO DAILY [facility] Last Admin: 08/27/24 10:13 Dose: 60 mg Fluticasone Propionate (Fluticasone Propionate Nasal 16 Gm [place]) 2 spray NOSTRIL-B DAILY [facility] Last Admin: 08/27/24 10:28 Dose: 2 spray Fluticasone/Vilanterol (Fluticasone/Vilanterol 200/25 Blst.W.Dev) 1 puff INHALE RDAILY [facility] Last Admin: 08/27/24 10:12 Dose: Not Given Haloperidol (Haloperidol 5 Mg Tablet) 5 mg PO TID [facility] Last Admin: 08/27/24 20:56 Dose: 5 mg Haloperidol (Haloperidol 5 Mg Tablet) 5 mg PO BID PRN PRN Reason: Psychosis Last Admin: 08/26/24 23:36 Dose: 5 mg Haloperidol Decanoate (Haloperidol Decanoate 50 Mg/Ml Vial) 75 mg IM Q28D [facility] Last Admin: 08/26/24 10:31 Dose: 75 mg Lactated Ringer's (Lr) 1,000 mls @ 100 mls/hr IVCONT .Q10H [facility] Last Admin: 08/28/24 06:35 Dose: 100 mls/hr Ibuprofen (Ibuprofen 600 Mg Tablet) 600 mg PO TID PRN PRN Reason: arthritis Last Admin: 08/22/24 11:02 Dose: 600 mg Lactulose (Lactulose 20 Gm/30 Ml Solution) 30 gm PO DAILY PRN PRN Reason: Constipation Last Admin: 08/26/24 06:06 Dose: 30 gm [place] Carbonate ([place] Carbonate 300 Mg Capsule) 300 mg PO BID [facility] Last Admin: 08/26/24 21:37 Dose: 300 mg Loratadine (Loratadine 10 Mg Tablet) 10 mg PO DAILY [facility] Last Admin: 08/27/24 10:12 Dose: 10 mg Lorazepam (Lorazepam 1 Mg Tablet) 1 mg PO TID PRN PRN Reason: anxiety/agitation Last Admin: 08/26/24 23:36 Dose: 1 mg Magnesium Hydroxide (Milk Of Magnesia 30 Ml Oral.Susp) 30 ml PO DAILY PRN PRN Reason: Constipation Last Admin: 08/17/24 19:32 Dose: 30 ml Multivitamins/Vitamin C (Multivitamin Tablet) 1 tab PO DAILY [facility] Last Admin: 08/27/24 10:13 Dose: 1 tab Nicotine Polacrilex (Nicotine Polacrilex 2 Mg Gum) 2 mg BUCCAL Q1H PRN PRN Reason: Nicotine Cravings Omeprazole (Omeprazole 20 Mg Capsule.) 20 mg PO Q48H [facility] Last Admin: 08/26/24 06:07 Dose: 20 mg Polyethylene Glycol (Polyethylene Glycol 3350 17 Gm Powd.Pack) 17 gm PO DAILY PRN PRN Reason: Constipation Last Admin: 08/26/24 06:07 Dose: 17 gm Polyethylene Glycol (Polyethylene Glycol 3350 17 Gm Powd.Pack) 17 gm PO QID [facility] Last Admin: 08/27/24 21:28 Dose: Not Given Prazosin HCl (Prazosin Hcl 1 Mg Capsule) 1 mg PO BEDTIME [facility]; Protocol Last Admin: 08/27/24 20:56 Dose: 1 mg Prazosin HCl (Prazosin Hcl 5 Mg Capsule) 15 mg PO BEDTIME [facility]; Protocol Last Admin: 08/27/24 20:56 Dose: 15 mg Sodium Biphosphate/Sodium Phosphate (Sodium Phosphate,[place]-Dibasic 133 Ml Enema) 133 ml MA DAILY PRN PRN Reason: Constipation Last Admin: 08/26/24 10:31 Dose: 133 ml Sodium Chloride (0.9 % Sodium Chloride Flush 10 Ml Syringe) 5 ml IVFLUSH QSHIFT [facility] Last Admin: 08/28/24 08:27 Dose: 5 ml Trazodone HCl (Trazodone Hcl 100 Mg Tablet) 200 mg PO BEDTIME [facility] Last Admin: 08/27/24 20:55 Dose: 200 mg Vitamin D (Cholecalciferol (Vitamin D3) 25 Mcg Tablet) 25 mcg PO DAILY [facility] Last Admin: 08/27/24 10:13 Dose: 25 mcg Home Medications ?Medication ?Instructions ?Recorded ?Confirmed ?Last Taken ?Type albuterol sulfate 90 mcg/actuation 2 puff inhalation QID PRN wheezing 04/30/24 08/17/24 05/29/24 07:00 History aerosol inhaler (Ventolin HFA) benztropine 0.5 mg tablet 0.5 mg PO BID 04/30/24 08/17/24 08/14/24 History clonidine HCl 0.1 mg tablet 0.1 mg PO TID 04/30/24 08/17/24 08/14/24 History diphenhydramine HCl 50 mg capsule 100 mg PO BEDTIME insomnia 04/30/24 08/17/24 08/14/24 History (Banophen) duloxetine 60 mg capsule,delayed 60 mg PO DAILY 04/30/24 08/17/24 08/14/24 History release lithium carbonate 300 mg tablet 300 mg PO BID 04/30/24 08/17/24 08/14/24 History omeprazole 20 mg capsule,delayed 20 mg PO Q OTHER DAY 04/30/24 08/17/24 08/14/24 History release prazosin 5 mg capsule 15 mg PO BEDTIME 04/30/24 08/17/24 08/14/24 History trazodone 100 mg tablet 200 mg PO BEDTIME insomnia 04/30/24 08/17/24 08/14/24 History cetirizine 10 mg tablet 10 mg PO DAILY 05/17/24 08/17/24 08/14/24 History ibuprofen 600 mg tablet 600 mg PO TID PRN arthritis 05/17/24 08/17/24 08/14/24 History multivitamin 1 tab PO DAILY 05/17/24 08/17/24 08/14/24 History psyllium husk 0.4 gram capsule 0.8 g PO BID 05/17/24 08/15/24 08/14/24 History (Daily Fiber) zolpidem 10 mg tablet 10 mg PO BEDTIME insomnia 05/17/24 08/17/24 08/14/24 History calcium 600 mg (as 1 tab PO BID 07/29/24 08/17/24 08/14/24 History carbonate)-vitamin D3 10 mcg (400 unit) tablet cholecalciferol (vitamin D3) 25 25 mcg PO DAILY 07/29/24 08/17/24 08/14/24 History mcg (1,000 unit) tablet (Vitamin D3) fluticasone propionate 230 2 puff inhalation BID 07/29/24 08/17/24 08/14/24 History mcg-salmeterol 21 mcg/actuation HFA inhaler (Advair HFA) acetaminophen 500 mg tablet 500 mg PO Q6H PRN Pain 08/15/24 08/15/24 08/14/24 History fluticasone propionate 50 2 spray intranasal DAILY 08/15/24 08/17/24 08/14/24 History mcg/actuation nasal spray,suspension haloperidol 5 mg tablet 5 mg PO TID 08/15/24 08/17/24 08/14/24 History haloperidol decanoate 100 mg/mL 75 mg IM Q28D 12/08/17/24 08/14/24 History intramuscular solution lidocaine 5 % topical patch 1 patch topical DAILY 08/15/24 08/15/24 08/14/24 History nicotine (polacrilex) 2 mg gum 2 mg PO Q2H PRN Cravings 08/15/24 08/15/24 08/14/24 History polyethylene glycol 3350 17 17 g PO DAILY PRN Constipation 08/15/24 08/15/24 08/14/24 History gram/dose oral powder (Miralax) prazosin 1 mg capsule 1 mg PO BEDTIME 08/15/24 08/17/24 08/14/24 History budesonide-formoterol HFA 160 2 puff inhalation BID 08/17/24 08/17/24 Unknown History mcg-4.5 mcg/actuation aerosol inhaler (Symbicort) Exam Height,Weight and Vital Signs: Height 8164 ft 3 in Weight 81.647 kg Last Vital Signs Temp 97.3 F 08/28/24 08:24 Pulse 93 08/28/24 08:24 Resp 20 08/28/24 08:24 BP 118/84 08/28/24 08:24 Pulse Ox 94 08/28/24 08:24 O2 Del Method Room Air 08/28/24 08:24 O2 Flow Rate 2 08/28/24 08:09 Pertinent Lab Results Pertinent Lab Results: Laboratory Tests 08/16/24 08/16/24 08/17/24 21:21 22:04 19:01 WBC 7.6 RBC 3.93 L Hgb 11.8 L Hct 35.5 L MCV 90.3 MCH 30.0 MCHC 33.2 RDW 12.3 Plt Count 238 MPV 11.1 Immature Gran % (Auto) 0.3 Neut % (Auto) 76.3 H Lymph % (Auto) 15.7 L [place] % (Auto) 6.9 Eos % (Auto) 0.5 Baso % (Auto) 0.3 Lymph # (Auto) 1.2 [place] # (Auto) 0.5 Eos # (Auto) 0.0 Baso # (Auto) 0.0 Abs Immat Gran (auto) 0.02 Absolute Neuts (auto) 5.8 Absolute Nucleated RBC 0.000 Nucleated RBC % (auto) 0.0 Smear Tech's Comments VERIFIED Hold Purple Top Sodium 138 139 Potassium 3.9 3.6 Chloride 109 H 109 H Carbon Dioxide 24 23 Anion Gap 9 L 11 L BUN 8 L 7 L Creatinine 0.72 0.80 Estim Creat Clear Calc 107.2 96.5 Estimated GFR > 60 > 60 Random Glucose 100 83 Calcium 8.9 D 8.9 Magnesium 1.8 Total Bilirubin 0.2 0.2 Direct Bilirubin < 0.2 AST 18 15 ALT 17 12 Alkaline Phosphatase 54 55 Total Protein 6.7 6.8 Albumin 3.9 4.0 Triglycerides Cholesterol LDL Cholesterol, Calc HDL Cholesterol Urine Color Urine Appearance Urine pH Ur Specific [place] Urine Protein Urine Glucose (UA) Urine Ketones Urine Blood Urine Nitrite Ur Leukocyte Esterase Urine Test NEGATIVE Urine Opiates Screen Not Detected Ur Buprenorphine Scrn Not Detected Ur Oxycodone Screen Not Detected Urine Methadone Screen Not Detected Urine Fentanyl Screen Not Detected Ur Barbiturates Screen Not Detected Ur Phencyclidine Scrn Not Detected Ur Amphetamines Screen Not Detected U Benzodiazepines Scrn Not Detected [place] 0.83 Urine Cocaine Screen Not Detected U Marijuana (THC) Screen POSITIVE H Ethyl Alcohol < 10 08/17/24 08/18/24 08/24/24 19:03 11:19 15:03 WBC RBC Hgb Hct MCV MCH MCHC RDW Plt Count MPV Immature Gran % (Auto) Neut % (Auto) Lymph % (Auto) [place] % (Auto) Eos % (Auto) Baso % (Auto) Lymph # (Auto) [place] # (Auto) Eos # (Auto) Baso # (Auto) Abs Immat Gran (auto) Absolute Neuts (auto) Absolute Nucleated RBC Nucleated RBC % (auto) Smear Tech's Comments Hold Purple Top SEE NOTE Sodium Potassium Chloride Carbon Dioxide Anion Gap BUN Creatinine Estim Creat Clear Calc Estimated GFR Random Glucose Calcium Magnesium Total Bilirubin Direct Bilirubin AST ALT Alkaline Phosphatase Total Protein Albumin Triglycerides 87 Cholesterol 153 LDL Cholesterol, Calc 89 HDL Cholesterol 47 Urine Color Yellow Urine Appearance Clear Urine pH 7.5 Ur Specific [place] <= 1.005 Urine Protein Negative Urine Glucose (UA) Negative Urine Ketones Negative Urine Blood Negative Urine Nitrite Negative Ur Leukocyte Esterase Negative Urine Test Urine Opiates Screen Ur Buprenorphine Scrn Ur Oxycodone Screen Urine Methadone Screen Urine Fentanyl Screen Ur Barbiturates Screen Ur Phencyclidine Scrn Ur Amphetamines Screen U Benzodiazepines Scrn [place] 0.84 Urine Cocaine Screen U Marijuana (THC) Screen Ethyl Alcohol Airway Mallampati Class: II TM Dist: >3cm Neck ROM: Full Heart: RRR Lungs: CTA Assessment and Plan Assessment Anesthesia Assessment: Anesthesia Plan Discussed and Chart Reviewed Final Anesthetic Review Family History of Problems with Anesthesia: No History of Problems with Anesthesia: No NPO: Yes ASA Class: III Final Preanesthetic Review: Meds/Allgs Chart Reviewed, Consent Obtained/Reviewed and Anes Risks/Benef Reviewed Patient Risk: Intermediate Procedure Risk: Low Anesthetic Plan Anesthetic Plan: GA Disposition: Standard PACU
--- NOTE | 2024-08-28 09:18 | HO.POSTANES ---
Post Anesthesia Evaluation Post Anesthesia Evaluation Date of Service: 08/28/24 Vital Signs: Vital Signs Temp Pulse Resp BP Pulse Ox O2 Del Method O2 Flow Rate 08/28/24 08:24 97.3 F 93 20 118/84 94 Room Air 08/28/24 08:09 87 20 114/73 96 Nasal Cannula with ETCO2 2 08/28/24 07:54 88 20 131/81 96 Nasal Cannula with ETCO2 3 08/28/24 07:49 89 20 123/81 96 Nasal Cannula with ETCO2 3 08/28/24 07:44 87 20 137/81 95 Nasal Cannula with ETCO2 3 08/28/24 07:39 97.4 F 64 16 161/95 H 95 Nasal Cannula with ETCO2 3 08/28/24 06:32 97.2 F 92 22 H 166/97 H 96 Room Air Anesthesia: General Mental Status: Awake Pain Control: Satisfactory Nausea/Vomiting: None Hydration: Adequate Anesthesia-Related Issues: No Anes. Related Issues
[2024-08-28] MEDS: buPROPion HCl XL 150 MG TAB.ER.24H PO (09:29)
[2024-08-28] MEDS: cloNIDine HCL 0.1 MG TABLET PO (09:29)
[2024-08-28] MEDS: HaloperidoL 5 MG TABLET PO (09:30)
[2024-08-28] MEDS: DULoxetine HCl 60 MG CAPSULE.DR PO (09:30)
[2024-08-28] MEDS: Calcium + Vitamin D 250 MG TABLET PO (09:30)
[2024-08-28] MEDS: Omeprazole 20 MG CAPSULE.DR PO (09:30)
[2024-08-28] MEDS: Loratadine 10 MG TABLET PO (09:30)
[2024-08-28] MEDS: Multivitamin TABLET 1 TAB PO (09:30)
[2024-08-28] MEDS: Cholecalciferol (Vitamin D3) 25 MCG TABLET PO (09:30)
[2024-08-28] MEDS: Benztropine Mesylate 0.5 MG TABLET PO (09:30)
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
== END 2024-08-28 11:26 | disposition home or self-care (01) | DRG 751 ==
LOC: HO.ED 08-17 11:04 → HO.PADLT16 08-17 15:33
PROVIDERS: Psychiatry & Neurology Psychiatry; Admitting Provider Psychiatry & Neurology Psychiatry; Emergency Provider Emergency Medicine; PCP Nurse Practitioner Family; Visit Provider Psychiatry & Neurology Psychiatry
PROC: GZB4ZZZ Other Electroconvulsive Therapy (ICD-10-PCS; CPT 90870; principal; 2024-08-25 08:00)
DX: F33.3 Major depressive disorder, recurrent, severe with psychotic symptoms (principal); R45.851 Suicidal ideations; F17.210 Nicotine dependence, cigarettes, uncomplicated; F43.12 Post-traumatic stress disorder, chronic; K59.00 Constipation, unspecified; F60.3 Borderline personality disorder; Z71.6 Tobacco abuse counseling; Z79.51 Long term (current) use of inhaled steroids; Z79.899 Other long term (current) drug therapy
CPT/HCPCS: 36415; 74018; 80048; 80053; 80061; 80076; 80178; 80307; 81003; 81025; 83735; 85025; 90870; 93005; 99285; J0330; J1596; J1631; J1805; J2060; J2359; J2405; J2704; J7120

== ENCOUNTER → 2024-08-17 09:16 | Outpatient (BNV) | payer OTHER, SELFPAY | PROVIDERS: Admitting Provider Psychiatry & Neurology Psychiatry; Emergency Provider Emergency Medicine; PCP Nurse Practitioner Family; Visit Provider Internal Medicine Cardiovascular Disease | DX: Z51.81 Encounter for therapeutic drug level monitoring (principal) | CPT/HCPCS: 93010 ==

== ENCOUNTER 2024-08-17 15:24 | Outpatient (BNV) | payer OTHER, SELFPAY | END 2024-08-22 11:41 | PROVIDERS: Admitting Provider Psychiatry & Neurology Psychiatry; Emergency Provider Emergency Medicine; PCP Nurse Practitioner Family; Visit Provider Radiology Diagnostic Radiology | DX: K59.00 Constipation, unspecified (principal) | CPT/HCPCS: 74018 ==

== ENCOUNTER 2024-08-17 15:24 | Outpatient (BNV) | payer OTHER, SELFPAY | END 2024-08-24 16:04 | PROVIDERS: Admitting Provider Psychiatry & Neurology Psychiatry; Emergency Provider Emergency Medicine; PCP Nurse Practitioner Family; Visit Provider Internal Medicine | DX: Z51.81 Encounter for therapeutic drug level monitoring (principal) | CPT/HCPCS: 93010 ==

== ENCOUNTER 2024-08-17 15:24 | Outpatient (BNV) | payer OTHER, SELFPAY | END 2024-08-19 10:48 | PROVIDERS: Admitting Provider Psychiatry & Neurology Psychiatry; Emergency Provider Emergency Medicine; PCP Nurse Practitioner Family; Visit Provider Internal Medicine Cardiovascular Disease | DX: Z51.81 Encounter for therapeutic drug level monitoring (principal) | CPT/HCPCS: 93010 ==

== ENCOUNTER → 2024-08-17 15:24 | Outpatient (BNV) | payer OTHER, SELFPAY | PROVIDERS: Admitting Provider Psychiatry & Neurology Psychiatry; Emergency Provider Emergency Medicine; PCP Nurse Practitioner Family; Visit Provider Psychiatry & Neurology Psychiatry | DX: F60.3 Borderline personality disorder (principal); F33.3 Major depressive disorder, recurrent, severe with psychotic symptoms; F43.12 Post-traumatic stress disorder, chronic | CPT/HCPCS: 99232; 99233 ==

== ENCOUNTER → 2024-08-17 15:24 | Outpatient (BNV) | payer OTHER, SELFPAY | PROVIDERS: Admitting Provider Psychiatry & Neurology Psychiatry; Emergency Provider Emergency Medicine; PCP Nurse Practitioner Family; Visit Provider Student in an Organized Health Care Education/Training Program | DX: Z01.818 Encounter for other preprocedural examination (principal) | CPT/HCPCS: 99429 ==

== ENCOUNTER 2024-08-29 09:46 | Emergency (ER) | payer OTHER, SELFPAY ==
[2024-08-29 10:05] VITALS: BP 135/86; PULSE 97; RESP 20; TEMP 36.4; O2SAT 100; BMI 38.6
--- NOTE | 2024-08-29 11:53 | ED_ITS ---
HPI - General Adult General Chief complaint: General Medical Stated complaint: Follow up from yesterday Time Seen by Provider: 08/29/24 11:03 Related Data Home Medications ?Medication ?Instructions ?Recorded ?Confirmed albuterol sulfate 90 mcg/actuation 2 puff inhalation QID PRN wheezing 04/30/24 08/17/24 aerosol inhaler (Ventolin HFA) benztropine 0.5 mg tablet 0.5 mg PO BID 04/30/24 08/17/24 clonidine HCl 0.1 mg tablet 0.1 mg PO TID 04/30/24 08/17/24 diphenhydramine HCl 50 mg capsule 100 mg PO BEDTIME insomnia 04/30/24 08/17/24 (Banophen) duloxetine 60 mg capsule,delayed 60 mg PO DAILY 04/30/24 08/17/24 release lithium carbonate 300 mg tablet 300 mg PO BID 04/30/24 08/17/24 omeprazole 20 mg capsule,delayed 20 mg PO Q OTHER DAY 04/30/24 08/17/24 release prazosin 5 mg capsule 15 mg PO BEDTIME 04/30/24 08/17/24 trazodone 100 mg tablet 200 mg PO BEDTIME insomnia 04/30/24 08/17/24 cetirizine 10 mg tablet 10 mg PO DAILY 05/17/24 08/17/24 multivitamin 1 tab PO DAILY 05/17/24 08/17/24 psyllium husk 0.4 gram capsule 0.8 g PO BID 05/17/24 08/15/24 (Daily Fiber) zolpidem 10 mg tablet 10 mg PO BEDTIME insomnia 05/17/24 08/17/24 calcium 600 mg (as 1 tab PO BID 07/29/24 08/17/24 carbonate)-vitamin D3 10 mcg (400 unit) tablet cholecalciferol (vitamin D3) 25 25 mcg PO DAILY 07/29/24 08/17/24 mcg (1,000 unit) tablet (Vitamin D3) fluticasone propionate 230 2 puff inhalation BID 07/29/24 08/17/24 mcg-salmeterol 21 mcg/actuation HFA inhaler (Advair HFA) acetaminophen 500 mg tablet 500 mg PO Q6H PRN Pain 08/15/24 08/15/24 fluticasone propionate 50 2 spray intranasal DAILY 08/15/24 08/17/24 mcg/actuation nasal spray,suspension haloperidol 5 mg tablet 5 mg PO TID 08/15/24 08/17/24 haloperidol decanoate 100 mg/mL 75 mg IM Q28D 08/15/24 08/17/24 intramuscular solution lidocaine 5 % topical patch 1 patch topical DAILY 08/15/24 08/15/24 nicotine (polacrilex) 2 mg gum 2 mg PO Q2H PRN Cravings 08/15/24 08/15/24 polyethylene glycol 3350 17 17 g PO DAILY PRN Constipation 08/15/24 08/15/24 gram/dose oral powder (Miralax) prazosin 1 mg capsule 1 mg PO BEDTIME 08/15/24 08/17/24 budesonide-formoterol HFA 160 2 puff inhalation BID 08/17/24 08/17/24 mcg-4.5 mcg/actuation aerosol inhaler (Symbicort) Previous Rx's ?Medication ?Instructions ?Recorded lorazepam 1 mg tablet 1 mg PO TID PRN anxiety/agitation 05/22/24 #0 tabs bupropion HCl 150 mg 24 hr tablet, 150 mg PO DAILY 30 days #30 tabs 08/03/24 extended release Allergies Allergy/AdvReac Type Severity Reaction Status Date / Time carbamazepine [From TEGRETOL] AdvReac Mild Nausea and Verified 08/29/24 10:06 Vomiting topiramate [From Topamax] AdvReac Mild Nausea and Verified 08/29/24 10:06 Vomiting PMFSH Past Medical History Medical History Pre-op evaluation MDD (major depressive disorder), recurrent, severe, with psychosis Port-A-Cath in place History of electroconvulsive therapy COVID-19 COVID-19 Sprain of left foot Chronic post-traumatic stress disorder (PTSD) COPD (chronic obstructive pulmonary disease) Increased BMI GERD (gastroesophageal reflux disease) Recurrent major depression-severe Acute post-traumatic stress disorder Injury, self-inflicted Suicidal ideation Self-harming behavior Intentional self-harm Suicidal ideation Borderline personality disorder Schizoaffective disorder Adjustment disorder Asthma Depression Anxiety PTSD (post-traumatic stress disorder) Family History Family History Mother Brain cancer Other No family history of cardiac disease Social History Social History Household Members: Other Household Members Other:: group housemates Housing: Other Housing Other:: [facility] Do you presently have visiting nurse or other home services: No Unable to assess alcohol history related to: Unable to respond Alcohol intake: never Comment: 1:1 safety observation Patient Tobacco Use Status: Current everyday Tobacco user Tobacco use type: Cigarette Cigarette Packs Per Day: 0.5 Cigarettes Per Day: 10.0 Years Smoked: 15 e-Cigarette/Vaping Use: Former Use Second Hand Smoke Exposure: Yes Substance Use Type: Marijuana Advance Directives: No Advance Directives Information Provided: Yes service: No Current occupation: rt handed Sexual orientation: Straight/Heterosexual Physical Exam ED Vital Signs: Vital Signs - 24 hr 08/29/24 10:05 Temperature 97.5 F Pulse Rate 97 Respiratory Rate 20 Blood Pressure 135/86 Pulse Oximetry 100 Oxygen Delivery Method Room Air BMI result Body Mass Index 38.6 Discharge Plan Discharge Prescriptions: No Action clonidine HCl 0.1 mg tablet 0.1 mg PO TID Rx Instructions: takes at 0800, 1400 and 2000 benztropine 0.5 mg tablet 0.5 mg PO BID diphenhydramine HCl [Banophen] 50 mg capsule 100 mg PO BEDTIME prazosin 5 mg capsule 15 mg PO BEDTIME trazodone 100 mg tablet 200 mg PO BEDTIME omeprazole 20 mg capsule,delayed release(DR/EC) 20 mg PO Q OTHER DAY albuterol sulfate [Ventolin HFA] 90 mcg/actuation HFA aerosol inhaler 2 puff INHALATION QID PRN (Reason: wheezing) lithium carbonate 300 mg tablet 300 mg PO BID duloxetine 60 mg capsule,delayed release(DR/EC) 60 mg PO DAILY Rx Instructions: takes at 0800 fluticasone propion-salmeterol [Advair HFA] 230-21 mcg/actuation HFA aerosol inhaler 2 puff INHALATION BID cholecalciferol (vitamin D3) [Vitamin D3] 25 mcg (1,000 unit) tablet 25 mcg PO DAILY calcium carbonate-vitamin D3 600 mg-10 mcg (400 unit) tablet 1 tab PO BID bupropion HCl 150 mg Tablet Extended Release 24 Hr 150 mg PO DAILY 30 Days Qty: 30 0RF haloperidol 5 mg tablet 5 mg PO TID nicotine (polacrilex) 2 mg gum 2 mg PO Q2H PRN (Reason: Cravings) prazosin 1 mg capsule 1 mg PO BEDTIME haloperidol decanoate 100 mg/mL solution 75 mg IM Q28D acetaminophen 500 mg Tablet 500 mg PO Q6H PRN (Reason: Pain) lidocaine 5 % adhesive patch,medicated 1 patch topical DAILY polyethylene glycol 3350 [Miralax] 17 gram/dose Powder 17 g PO DAILY PRN (Reason: Constipation) fluticasone propionate 50 mcg/actuation spray,suspension 2 spray intranasal DAILY psyllium husk [Daily Fiber] 0.4 gram capsule 0.8 g PO BID zolpidem 10 mg tablet 10 mg PO BEDTIME multivitamin Tablet 1 tab PO DAILY cetirizine 10 mg tablet 10 mg PO DAILY lorazepam 1 mg Tablet 1 mg PO TID PRN (Reason: anxiety/agitation) Qty: 0 0RF budesonide-formoterol [Symbicort] 160-4.5 mcg/actuation HFA aerosol inhaler 2 puff INHALATION BID Print Language: Sinhala
--- NOTE | 2024-08-29 13:01 | ED_ITS ---
HPI - General Adult General Chief complaint: General Medical Stated complaint: Follow up from yesterday Time Seen by Provider: 08/29/24 11:03 Source: patient Mode of arrival: ambulatory Limitations: no limitations History of Present Illness ED Provider: Aaron SAM HPI narrative: 39-year-old female patient has depression PTSD, schizoaffective disorder, borderline personality disorder COPD, asthma, adjustment disorder, GERD presents to ED for port removal. Patient has a plate that is actually yesterday for ECT but was not flushed and removed. Patient presents to ED just for port to be flushed and removed. Patient denies any physical complaints. Related Data Home Medications ?Medication ?Instructions ?Recorded ?Confirmed albuterol sulfate 90 mcg/actuation 2 puff inhalation QID PRN wheezing 04/30/24 08/17/24 aerosol inhaler (Ventolin HFA) benztropine 0.5 mg tablet 0.5 mg PO BID 04/30/24 08/17/24 clonidine HCl 0.1 mg tablet 0.1 mg PO TID 04/30/24 08/17/24 diphenhydramine HCl 50 mg capsule 100 mg PO BEDTIME insomnia 04/30/24 08/17/24 (Banophen) duloxetine 60 mg capsule,delayed 60 mg PO DAILY 04/30/24 08/17/24 release lithium carbonate 300 mg tablet 300 mg PO BID 04/30/24 08/17/24 omeprazole 20 mg capsule,delayed 20 mg PO Q OTHER DAY 04/30/24 08/17/24 release prazosin 5 mg capsule 15 mg PO BEDTIME 04/30/24 08/17/24 trazodone 100 mg tablet 200 mg PO BEDTIME insomnia 04/30/24 08/17/24 cetirizine 10 mg tablet 10 mg PO DAILY 05/17/24 08/17/24 multivitamin 1 tab PO DAILY 05/17/24 08/17/24 psyllium husk 0.4 gram capsule 0.8 g PO BID 05/17/24 08/15/24 (Daily Fiber) zolpidem 10 mg tablet 10 mg PO BEDTIME insomnia 05/17/24 08/17/24 calcium 600 mg (as 1 tab PO BID 07/29/24 08/17/24 carbonate)-vitamin D3 10 mcg (400 unit) tablet cholecalciferol (vitamin D3) 25 25 mcg PO DAILY 07/29/24 08/17/24 mcg (1,000 unit) tablet (Vitamin D3) fluticasone propionate 230 2 puff inhalation BID 07/29/24 08/17/24 mcg-salmeterol 21 mcg/actuation HFA inhaler (Advair HFA) acetaminophen 500 mg tablet 500 mg PO Q6H PRN Pain 08/15/24 08/15/24 fluticasone propionate 50 2 spray intranasal DAILY 08/15/24 08/17/24 mcg/actuation nasal spray,suspension haloperidol 5 mg tablet 5 mg PO TID 08/15/24 08/17/24 haloperidol decanoate 100 mg/mL 75 mg IM Q28D 08/15/24 08/17/24 intramuscular solution lidocaine 5 % topical patch 1 patch topical DAILY 08/15/24 08/15/24 nicotine (polacrilex) 2 mg gum 2 mg PO Q2H PRN Cravings 08/15/24 08/15/24 polyethylene glycol 3350 17 17 g PO DAILY PRN Constipation 08/15/24 08/15/24 gram/dose oral powder (Miralax) prazosin 1 mg capsule 1 mg PO BEDTIME 08/15/24 08/17/24 budesonide-formoterol HFA 160 2 puff inhalation BID 08/17/24 08/17/24 mcg-4.5 mcg/actuation aerosol inhaler (Symbicort) Previous Rx's ?Medication ?Instructions ?Recorded lorazepam 1 mg tablet 1 mg PO TID PRN anxiety/agitation 05/22/24 #0 tabs bupropion HCl 150 mg 24 hr tablet, 150 mg PO DAILY 30 days #30 tabs 08/03/24 extended release Allergies Allergy/AdvReac Type Severity Reaction Status Date / Time carbamazepine [From TEGRETOL] AdvReac Mild Nausea and Verified 08/29/24 10:06 Vomiting topiramate [From Topamax] AdvReac Mild Nausea and Verified 08/29/24 10:06 Vomiting Review of Systems Review of Systems: Port to be flushed removed Yes all other systems are reviewed and are negative PMFSH Past Medical History Medical History Pre-op evaluation MDD (major depressive disorder), recurrent, severe, with psychosis Port-A-Cath in place History of electroconvulsive therapy COVID-19 COVID-19 Sprain of left foot Chronic post-traumatic stress disorder (PTSD) COPD (chronic obstructive pulmonary disease) Increased BMI GERD (gastroesophageal reflux disease) Recurrent major depression-severe Acute post-traumatic stress disorder Injury, self-inflicted Suicidal ideation Self-harming behavior Intentional self-harm Suicidal ideation Borderline personality disorder Schizoaffective disorder Adjustment disorder Asthma Depression Anxiety PTSD (post-traumatic stress disorder) Family History Family History Mother Brain cancer Other No family history of cardiac disease Social History Social History Household Members: Other Household Members Other:: group housemates Housing: Other Housing Other:: half-way Do you presently have visiting nurse or other home services: No Unable to assess alcohol history related to: Unable to respond Alcohol intake: never Comment: 1:1 safety observation Patient Tobacco Use Status: Current everyday Tobacco user Tobacco use type: Cigarette Cigarette Packs Per Day: 0.5 Cigarettes Per Day: 10.0 Years Smoked: 15 e-Cigarette/Vaping Use: Former Use Second Hand Smoke Exposure: Yes Substance Use Type: Marijuana Advance Directives: No Advance Directives Information Provided: Yes service: No Current occupation: rt handed Sexual orientation: Straight/Heterosexual Physical Exam ED Vital Signs: Vital Signs - 24 hr 08/29/24 10:05 08/29/24 13:38 Temperature 97.5 F 97.5 F Pulse Rate 97 97 Respiratory Rate 20 20 Blood Pressure 135/86 135/86 Pulse Oximetry 100 100 Oxygen Delivery Method Room Air Room Air BMI result Body Mass Index 38.6 Const General: cooperative, healthy appearing, comfortable, no acute distress, well developed, alert, awake and Physically active Orientation/consciousness: patient oriented x3 HENMT Head: Yes normal to inspection, Yes No palpable skull fracture present and Yes normocephalic Ears: hearing grossly normal bilaterally, external ears normal, TM's normal bilaterally, TM normal on the right, TM normal on the left, EAC's normal, mastoids normal and no periauricular adenopathy Throat: Yes posterior oropharynx normal, Yes tonsils normal and Yes uvula midline Eyes General: appearance normal, both eyes and all related structures Neck Neck: Yes normal visual inspection, Yes full ROM, Yes no lymphadenopathy, Yes no meningeal signs, Yes trachea midline, Yes supple, No anterior neck swelling and No tender Chest Other: Negative for any signs of infection around port. Negative for erythema, pus discharge, foul odor, ecchymosis, crepitus, or deformity. Chest palpation & inspection: normal inspection of the chest and normal palpation of entire chest wall Resp Effort & Inspection: normal respiratory effort and able to speak in complete sentences Auscultation: clear to auscultation bilaterally Cardio Jugular venous distension: no JVD Heart sounds: S1 normal heart sound present and S2 normal heart sound present GI Inspection: Yes normal to inspection Palpation (GI): Soft to palpation, not firm, nontender, no guarding and not rigid General: Yes no CVA tenderness Back/Spine/Pelvis Back: no CVA tenderness and No back tenderness Skin General skin exam: no rashes or lesions noted, elasticity normal and turgor normal Neuro General: patient oriented x3, gait normal, tone normal, moves all extremities, Normal light touch and pain sensation, no meningeal signs, no focal motor deficits, CN's II-XI intact bilaterally and normal sensation to monofilament Extrem General: Yes normal to inspection, Yes full ROM and Yes capillary refill normal Psych Appearance: grossly normal, well kempt and not disheveled Course Course Course Narrative: RME: Medications Administered Discontinued Medications Generic Name Dose Route Start Last Admin Trade Name Freq PRN Reason Stop Dose Admin Heparin Sodium (Porcine) 50 0 units 08/29/24 12:43 08/29/24 13:14 units/ Sodium Chloride 5 ml IVFLUSH 08/29/24 12:44 50 unit QSHIFT STA Administration Medical Decision Making Medical Decision Making [facility] Narrative: RME: Port was flushed with heparin and removed by nurse. Patient discharged and told to follow up with primary care provider. Patient has no complaint. Site of port negative for signs of infection. No erythema, ecchymosis, pus discharge, or tenderness. Patient informed worrisome signs and and informed return to the ED immediately if she has them. Not suspect any cellulitis, osteomyelitis, DVT, arterial occlusion, compartment syndrome, or any other life- threatening etiology. Differential Diagnosis Differential Diagnoses: The differential diagnosis associated with the presentation includes (Sport) Admission/Observation Consideration of admission/observation: Escalation of care including admission/observation considered Independent Historian Clinical information obtained from an independent historian. History obtained from or confirmed by: Other (Patient) External Record Review External record reviewed: Other (Prior visits) Discharge Plan Discharge Clinical Impression: Port-A-Cath in place Patient Disposition: Home, Self-Care Instructions: How to Care for Your Implanted Venous Access Port (DC) Additional Instructions: Recommend follow-up with primary care provider. Return to the ED immediately for any erythema, pus discharge, ecchymosis, chest pain, pain near port, fever, chills, or any other concerning symptoms. Prescriptions: No Action clonidine HCl 0.1 mg tablet 0.1 mg PO TID Rx Instructions: takes at 0800, 1400 and 2000 benztropine 0.5 mg tablet 0.5 mg PO BID diphenhydramine HCl [Banophen] 50 mg capsule 100 mg PO BEDTIME prazosin 5 mg capsule 15 mg PO BEDTIME trazodone 100 mg tablet 200 mg PO BEDTIME omeprazole 20 mg capsule,delayed release(DR/EC) 20 mg PO Q OTHER DAY albuterol sulfate [Ventolin HFA] 90 mcg/actuation HFA aerosol inhaler 2 puff INHALATION QID PRN (Reason: wheezing) lithium carbonate 300 mg tablet 300 mg PO BID duloxetine 60 mg capsule,delayed release(DR/EC) 60 mg PO DAILY Rx Instructions: takes at 0800 fluticasone propion-salmeterol [Advair HFA] 230-21 mcg/actuation HFA aerosol inhaler 2 puff INHALATION BID cholecalciferol (vitamin D3) [Vitamin D3] 25 mcg (1,000 unit) tablet 25 mcg PO DAILY calcium carbonate-vitamin D3 600 mg-10 mcg (400 unit) tablet 1 tab PO BID bupropion HCl 150 mg Tablet Extended Release 24 Hr 150 mg PO DAILY 30 Days Qty: 30 0RF haloperidol 5 mg tablet 5 mg PO TID nicotine (polacrilex) 2 mg gum 2 mg PO Q2H PRN (Reason: Cravings) prazosin 1 mg capsule 1 mg PO BEDTIME haloperidol decanoate 100 mg/mL solution 75 mg IM Q28D acetaminophen 500 mg Tablet 500 mg PO Q6H PRN (Reason: Pain) lidocaine 5 % adhesive patch,medicated 1 patch topical DAILY polyethylene glycol 3350 [Miralax] 17 gram/dose Powder 17 g PO DAILY PRN (Reason: Constipation) fluticasone propionate 50 mcg/actuation spray,suspension 2 spray intranasal DAILY psyllium husk [Daily Fiber] 0.4 gram capsule 0.8 g PO BID zolpidem 10 mg tablet 10 mg PO BEDTIME multivitamin Tablet 1 tab PO DAILY cetirizine 10 mg tablet 10 mg PO DAILY lorazepam 1 mg Tablet 1 mg PO TID PRN (Reason: anxiety/agitation) Qty: 0 0RF budesonide-formoterol [Symbicort] 160-4.5 mcg/actuation HFA aerosol inhaler 2 puff INHALATION BID Interventions: ED Discharge Assessment Last Done: 08/29/24 13:38 Discharge Date/Time: 08/29/24 13:39 Print Language: Vincentian
[2024-08-29] MEDS: Heparin Sodium,Porcine Flush 50 UNITS, 0.9 % Sodium Chloride Flush 5 ML IVFLUSH (13:14)
[2024-08-29 13:38] VITALS: BP 135/86; PULSE 97; RESP 20; TEMP 36.4; O2SAT 100
== END 2024-08-29 13:39 | disposition home or self-care (01) ==
PROVIDERS: Emergency Provider Emergency Medicine; PCP Nurse Practitioner Family
DX: Z45.2 Encounter for adjustment and management of vascular access device (principal); Z95.828 Presence of other vascular implants and grafts; F17.210 Nicotine dependence, cigarettes, uncomplicated; F33.3 Major depressive disorder, recurrent, severe with psychotic symptoms; F43.12 Post-traumatic stress disorder, chronic; F60.3 Borderline personality disorder; R44.0 Auditory hallucinations; J45.909 Unspecified asthma, uncomplicated; F43.20 Adjustment disorder, unspecified; Z91.52 Personal history of nonsuicidal self-harm
CPT/HCPCS: 99283; J1642

== ENCOUNTER 2024-08-29 21:26 | Emergency (ER) | payer OTHER, SELFPAY ==
--- NOTE | ~2024-08-29 | XR_ITS ---
CLINICAL HISTORY: sob 2 view chest x-ray. Comparison: CR/SR - XR CHEST 1V - 12/09/21 23:30 EDT Findings: The lungs appear clear. There is no consolidation, effusion, or pneumothorax. Cardiomediastinal silhouette is within normal limits. Right IJ port catheter tip is near the superior cavoatrial junction. IMPRESSION: No acute cardiopulmonary abnormality. This document has been electronically signed by: Devyn Luevano MD on 08/30/2024 01:02:21
[2024-08-29 21:32] VITALS: BP 129/87; PULSE 111; RESP 18; TEMP 36.8; O2SAT 97; BMI 38.8
[2024-08-29 22:38] LABS: Influenza A PCR NEGATIVE (Negative); Influenza B PCR NEGATIVE (Negative); Resp Syncy Virus RNA Qual PCR NEGATIVE (Negative); SARS COV2 PCR INHOUSE NEGATIVE (Negative)
[2024-08-29 23:49] LABS: IDNOW Serial# 58CA691E; Strep A Nucleic Acid Negative (Negative)
[2024-08-30 00:16] VITALS: BP 116/71; PULSE 101; RESP 18; TEMP 36.6; O2SAT 98
--- NOTE | 2024-08-30 00:56 | ED.URI ---
HPI - URI/Sore Throat General Chief Complaint: Upper Respiratory Symptoms Stated Complaint: general sickness Time Seen by Provider: 08/30/24 00:56 Source: patient Mode of arrival: ambulatory Limitations: no limitations History of Present Illness ED Provider: Sofía Ortega NP HPI Narrative: Patient is a 39-year-old female who presents emergency department via EMS coming from her senior living today for evaluation of cough, generalized body aches, sore throat and fatigue with onset yesterday. Denies known sick contacts. She is a cigarette smoker, endorses having a history of asthma/COPD. Denies fevers, chills, headache, dizziness, neck pain, neck stiffness, chest pain, nausea, vomiting, abdominal pain, numbness or tingling of the extremities, genitourinary symptoms. Related Data Home Medications ?Medication ?Instructions ?Recorded ?Confirmed albuterol sulfate 90 mcg/actuation 2 puff inhalation QID PRN wheezing 04/30/24 08/17/24 aerosol inhaler (Ventolin HFA) benztropine 0.5 mg tablet 0.5 mg PO BID 04/30/24 08/17/24 clonidine HCl 0.1 mg tablet 0.1 mg PO TID 04/30/24 08/17/24 diphenhydramine HCl 50 mg capsule 100 mg PO BEDTIME insomnia 04/30/24 08/17/24 (Banophen) duloxetine 60 mg capsule,delayed 60 mg PO DAILY 04/30/24 08/17/24 release lithium carbonate 300 mg tablet 300 mg PO BID 04/30/24 08/17/24 omeprazole 20 mg capsule,delayed 20 mg PO Q OTHER DAY 04/30/24 08/17/24 release prazosin 5 mg capsule 15 mg PO BEDTIME 04/30/24 08/17/24 trazodone 100 mg tablet 200 mg PO BEDTIME insomnia 04/30/24 08/17/24 cetirizine 10 mg tablet 10 mg PO DAILY 05/17/24 08/17/24 multivitamin 1 tab PO DAILY 05/17/24 08/17/24 psyllium husk 0.4 gram capsule 0.8 g PO BID 05/17/24 08/15/24 (Daily Fiber) zolpidem 10 mg tablet 10 mg PO BEDTIME insomnia 05/17/24 08/17/24 calcium 600 mg (as 1 tab PO BID 07/29/24 08/17/24 carbonate)-vitamin D3 10 mcg (400 unit) tablet cholecalciferol (vitamin D3) 25 25 mcg PO DAILY 07/29/24 08/17/24 mcg (1,000 unit) tablet (Vitamin D3) fluticasone propionate 230 2 puff inhalation BID 07/29/24 08/17/24 mcg-salmeterol 21 mcg/actuation HFA inhaler (Advair HFA) acetaminophen 500 mg tablet 500 mg PO Q6H PRN Pain 08/15/24 08/15/24 fluticasone propionate 50 2 spray intranasal DAILY 08/15/24 08/17/24 mcg/actuation nasal spray,suspension haloperidol 5 mg tablet 5 mg PO TID 08/15/24 08/17/24 haloperidol decanoate 100 mg/mL 75 mg IM Q28D 08/15/24 08/17/24 intramuscular solution lidocaine 5 % topical patch 1 patch topical DAILY 08/15/24 08/15/24 nicotine (polacrilex) 2 mg gum 2 mg PO Q2H PRN Cravings 08/15/24 08/15/24 polyethylene glycol 3350 17 17 g PO DAILY PRN Constipation 08/15/24 08/15/24 gram/dose oral powder (Miralax) prazosin 1 mg capsule 1 mg PO BEDTIME 08/15/24 08/17/24 budesonide-formoterol HFA 160 2 puff inhalation BID 08/17/24 08/17/24 mcg-4.5 mcg/actuation aerosol inhaler (Symbicort) Previous Rx's ?Medication ?Instructions ?Recorded lorazepam 1 mg tablet 1 mg PO TID PRN anxiety/agitation 05/22/24 #0 tabs bupropion HCl 150 mg 24 hr tablet, 150 mg PO DAILY 30 days #30 tabs 08/03/24 extended release albuterol sulfate 90 mcg/actuation 2 puff inhalation Q4-6H PRN 08/30/24 aerosol inhaler shortness of breath or wheezing #6.7 grams doxycycline hyclate 100 mg capsule 100 mg PO BID #14 caps 08/30/24 Allergies Allergy/AdvReac Type Severity Reaction Status Date / Time carbamazepine [From TEGRETOL] AdvReac Mild Nausea and Verified 08/29/24 21:33 Vomiting topiramate [From Topamax] AdvReac Mild Nausea and Verified 08/29/24 21:33 Vomiting Review of Systems Review of Systems: Yes all other systems are reviewed and are negative [facility] Past Medical History Attestation statement: The following information was validated with the patient. Source: old records reviewed Medical History Pre-op evaluation MDD (major depressive disorder), recurrent, severe, with psychosis Port-A-Cath in place History of electroconvulsive therapy COVID-19 COVID-19 Sprain of left foot Chronic post-traumatic stress disorder (PTSD) COPD (chronic obstructive pulmonary disease) Increased BMI GERD (gastroesophageal reflux disease) Recurrent major depression-severe Acute post-traumatic stress disorder Injury, self-inflicted Suicidal ideation Self-harming behavior Intentional self-harm Suicidal ideation Borderline personality disorder Schizoaffective disorder Adjustment disorder Asthma Depression Anxiety PTSD (post-traumatic stress disorder) Family History Family History Mother Brain cancer Other No family history of cardiac disease Social History Social History Household Members: Other Household Members Other:: group housemates Housing: Other Housing Other:: senior living Do you presently have visiting nurse or other home services: No Unable to assess alcohol history related to: Unable to respond Alcohol intake: never Comment: 1:1 safety observation Patient Tobacco Use Status: Current everyday Tobacco user Tobacco use type: Cigarette Cigarette Packs Per Day: 0.5 Cigarettes Per Day: 10.0 Years Smoked: 15 e-Cigarette/Vaping Use: Former Use Second Hand Smoke Exposure: Yes Substance Use Type: Marijuana service: No Current occupation: rt handed Sexual orientation: Straight/Heterosexual Physical Exam Vital Signs: Vital Signs: Last Vital Signs Temp 97.9 F 08/30/24 00:16 Pulse 101 H 08/30/24 00:16 Resp 18 08/30/24 00:16 BP 116/71 08/30/24 00:16 Pulse Ox 98 08/30/24 00:16 O2 Del Method Room Air 08/30/24 00:16 BMI result Body Mass Index 38.8 Appearance: Alert.?Oriented to person, place and time. No acute distress.?Normal affect. Eyes: Pupils equal, round and reactive to light.? ENT: TM normal bilaterally. Pharynx normal.?? Neck: Normal inspection.? Neck supple.??No cervical adenopathy CVS: Heart sounds normal. Normal heart rate and rhythm.? Pulses normal.?? Respiratory: No respiratory distress.? Lung sounds clear at the apices, diminished at the bilateral bases Abdomen: Soft and non-tender. Normoactive bowel sounds. Skin: Skin warm and dry.? Normal skin color.? ? Extremities: No lower extremity edema.? Neuro: Moves all extremities spontaneously. Sensation intact bilaterally. No motor deficits. Ambulates with normal steady gait. Medical Decision Making Medical Decision Making MDM Narrative: Patient is a 39-year-old female presenting for evaluation of upper respiratory symptoms. COVID-19/RSV/influenza testing negative. Group a strep testing is negative, not consistent with [employer]. Chest x-ray was obtained, is without evidence of consolidation or infiltrate to suggest an acute pneumonia. No associated chest pain to suggest ACS, Wells score low risk no clinical evidence of lower extremity DVT unlikely pulmonary embolism. Suspect symptoms are most consistent with acute bronchitis in the setting of a history of COPD. She does not have significant wheezing, would defer steroid treatment at this time, sent prescription for doxycycline to pharmacy. Well-appearing, nontoxic, afebrile, mild tachycardia, no tachypnea/hypoxia. Speaking clear full sentences, ambulatory with steady gait. Discussed conservative treatment including rest, hydration, Tylenol/ibuprofen as needed for fever and body aches, saline nasal spray, humidifier, [id number] cold medication. Advised to follow-up with primary care provider as needed, discussed reasons to return back to the emergency department. All questions were answered. Patient discharged home in stable condition. Differential Diagnosis Differential Diagnoses: The differential diagnosis associated with the presentation includes ( See narrative above) Admission/Observation Consideration of admission/observation: Escalation of care including admission/observation considered ( see narrative above) Lab Data MDM Lab Attestation statement: I reviewed the patient's lab results. ( see narrative above) Labs: Lab Results 08/29/24 08/29/24 Range/Units 21:56 23:36 Influenza Type A (PCR) NEGATIVE (Negative) Influenza Type B (PCR) NEGATIVE (Negative) RSV RNA Qual (PCR) NEGATIVE (Negative) SARS-CoV-2 RNA (RT-PCR) NEGATIVE (Negative) S. pyogenes GrpA MARIALUISA Negative (Negative) Independent Interpretation I performed an independent interpretation of an: Plain X-Ray (No consolidation/ infiltrate) Radiology Impression Discussion of test interpretation with radiology: I have reviewed the radiologist's reading. Radiologist Impression: 2 view chest x-ray. Comparison: CR/SR - XR CHEST 1V - 12/09/21 23:30 EDT Findings: The lungs appear clear. There is no consolidation, effusion, or pneumothorax. Cardiomediastinal silhouette is within normal limits. Right IJ port catheter tip is near the superior cavoatrial junction. IMPRESSION: No acute cardiopulmonary abnormality. Prescription Management I considered prescription management with: Pain Medication ( acetaminophen/ibuprofen) Discharge Plan Discharge Clinical Impression: Bronchitis Patient Disposition: Home, Self-Care Instructions: Acute Bronchitis (ED) Additional Instructions: As discussed, symptoms at this time consistent with bronchitis just inflammation to the airways likely in the setting of a viral illness, but also your continued cigarette smoking is not beneficial for this. A prescription for doxycycline has been sent to your pharmacy take this as prescribed not skipped any doses or stop taking early even if you begin to feel better. Follow-up with your primary care doctor. Return with any new or worsening symptoms or concerns Prescriptions: New doxycycline hyclate 100 mg capsule 100 mg PO BID Qty: 14 0RF albuterol sulfate 90 mcg/actuation HFA aerosol inhaler 2 puff inhalation Q4-6H PRN (Reason: shortness of breath or wheezing) Qty: 6.7 0RF No Action clonidine HCl 0.1 mg tablet 0.1 mg PO TID Rx Instructions: takes at 0800, 1400 and 2000 benztropine 0.5 mg tablet 0.5 mg PO BID diphenhydramine HCl [Banophen] 50 mg capsule 100 mg PO BEDTIME prazosin 5 mg capsule 15 mg PO BEDTIME trazodone 100 mg tablet 200 mg PO BEDTIME omeprazole 20 mg capsule,delayed release(DR/EC) 20 mg PO Q OTHER DAY albuterol sulfate [Ventolin HFA] 90 mcg/actuation HFA aerosol inhaler 2 puff INHALATION QID PRN (Reason: wheezing) lithium carbonate 300 mg tablet 300 mg PO BID duloxetine 60 mg capsule,delayed release(DR/EC) 60 mg PO DAILY Rx Instructions: takes at 0800 fluticasone propion-salmeterol [Advair HFA] 230-21 mcg/actuation HFA aerosol inhaler 2 puff INHALATION BID cholecalciferol (vitamin D3) [Vitamin D3] 25 mcg (1,000 unit) tablet 25 mcg PO DAILY calcium carbonate-vitamin D3 600 mg-10 mcg (400 unit) tablet 1 tab PO BID bupropion HCl 150 mg Tablet Extended Release 24 Hr 150 mg PO DAILY 30 Days Qty: 30 0RF haloperidol 5 mg tablet 5 mg PO TID nicotine (polacrilex) 2 mg gum 2 mg PO Q2H PRN (Reason: Cravings) prazosin 1 mg capsule 1 mg PO BEDTIME haloperidol decanoate 100 mg/mL solution 75 mg IM Q28D acetaminophen 500 mg Tablet 500 mg PO Q6H PRN (Reason: Pain) lidocaine 5 % adhesive patch,medicated 1 patch topical DAILY polyethylene glycol 3350 [Miralax] 17 gram/dose Powder 17 g PO DAILY PRN (Reason: Constipation) fluticasone propionate 50 mcg/actuation spray,suspension 2 spray intranasal DAILY psyllium husk [Daily Fiber] 0.4 gram capsule 0.8 g PO BID zolpidem 10 mg tablet 10 mg PO BEDTIME multivitamin Tablet 1 tab PO DAILY cetirizine 10 mg tablet 10 mg PO DAILY lorazepam 1 mg Tablet 1 mg PO TID PRN (Reason: anxiety/agitation) Qty: 0 0RF budesonide-formoterol [Symbicort] 160-4.5 mcg/actuation HFA aerosol inhaler 2 puff INHALATION BID Referrals: ED Physician,Generic [Physician] - Print Language: Welsh
[2024-08-30 01:37] VITALS: BP 116/71; PULSE 101; RESP 18; TEMP 36.6; O2SAT 98
== END 2024-08-30 01:41 | disposition home or self-care (01) ==
PROVIDERS: Nurse Practitioner Family; Emergency Provider Emergency Medicine Emergency Medical Services; PCP Nurse Practitioner Family
DX: J40 Bronchitis, not specified as acute or chronic (principal); R06.02 Shortness of breath; R05.9 Cough, unspecified; M79.10 Myalgia, unspecified site; Z03.818 Encounter for observation for suspected exposure to other biological agents ruled out
CPT/HCPCS: 0241U; 71046; 87651; 99282; 99283

== ENCOUNTER → 2024-08-30 00:35 | Outpatient (BNV) | payer OTHER, SELFPAY | PROVIDERS: Emergency Provider Emergency Medicine Emergency Medical Services; PCP Nurse Practitioner Family; Visit Provider Radiology Diagnostic Radiology | DX: R06.02 Shortness of breath (principal) | CPT/HCPCS: 71046 ==

== ENCOUNTER 2024-09-08 05:55 | Day surgery (SDC) | payer OTHER, SELFPAY ==
[2024-09-08] VITALS (7 sets, daily range): BP systolic 123–143; BP diastolic 68–81; PULSE 85–103; RESP 15–20; TEMP 36.6–36.7; O2SAT 94–99; BMI 44.4
--- NOTE | 2024-09-08 06:50 | P.CONAN_ITS ---
[facility] Active Problems Active Problems: All Active Problems MDD (major depressive disorder), recurrent, severe, with psychosis (Acute) Depression (Acute) Osteoarthritis of right knee (Acute) Chronic post-traumatic stress disorder (PTSD) (Chronic) Schizoaffective disorder, depressive type (Chronic) Borderline personality disorder (Chronic) Auditory hallucinations (Acute) Port-A-Cath in place (Acute) Intentional self-harm (Acute) COPD (chronic obstructive pulmonary disease) (Acute) Asthma (Acute) Adjustment disorder (Acute) Anxiety (Acute) Injury of ligament of right knee (Acute) Sprain of anterior cruciate ligament of right knee (Acute) Hernia (Chronic) Increased BMI (Acute) GERD (gastroesophageal reflux disease) (Acute) Past Medical History Medical History Pre-op evaluation MDD (major depressive disorder), recurrent, severe, with psychosis Port-A-Cath in place History of electroconvulsive therapy COVID-19 COVID-19 Sprain of left foot Chronic post-traumatic stress disorder (PTSD) COPD (chronic obstructive pulmonary disease) Increased BMI GERD (gastroesophageal reflux disease) Recurrent major depression-severe Acute post-traumatic stress disorder Injury, self-inflicted Suicidal ideation Self-harming behavior Intentional self-harm Suicidal ideation Borderline personality disorder Schizoaffective disorder Adjustment disorder Asthma Depression Anxiety PTSD (post-traumatic stress disorder) Family History Family History Mother Brain cancer Other No family history of cardiac disease Family history of problems with anesthesia: No Surgical History History of Problems with Anesthesia: No Social History Social History Household Members: Other Household Members Other:: group housemates Housing: Other Housing Other:: correction Do you presently have visiting nurse or other home services: No Unable to assess alcohol history related to: Unable to respond Alcohol intake: never Comment: 1:1 safety observation Patient Tobacco Use Status: Current everyday Tobacco user Tobacco use type: Cigarette Cigarette Packs Per Day: 0.5 Cigarettes Per Day: 10.0 Years Smoked: 15 e-Cigarette/Vaping Use: Former Use Second Hand Smoke Exposure: Yes Substance Use Type: Marijuana Advance Directives: No Advance Directives Information Provided: Yes service: No Current occupation: rt handed Sexual orientation: Straight/Heterosexual Meds Allergies Allergy/AdvReac Type Severity Reaction Status Date / Time carbamazepine [From TEGRETOL] AdvReac Mild Nausea and Verified 08/29/24 21:33 Vomiting topiramate [From Topamax] AdvReac Mild Nausea and Verified 08/29/24 21:33 Vomiting Home Medications ?Medication ?Instructions ?Recorded ?Confirmed ?Last Taken ?Type albuterol sulfate 90 mcg/actuation 2 puff inhalation QID PRN wheezing 04/30/24 08/17/24 05/29/24 07:00 History aerosol inhaler (Ventolin HFA) benztropine 0.5 mg tablet 0.5 mg PO BID 04/30/24 08/17/24 08/14/24 History clonidine HCl 0.1 mg tablet 0.1 mg PO TID 04/30/24 08/17/24 08/14/24 History diphenhydramine HCl 50 mg capsule 100 mg PO BEDTIME insomnia 04/30/24 08/17/24 08/14/24 History (Banophen) duloxetine 60 mg capsule,delayed 60 mg PO DAILY 04/30/24 08/17/24 08/14/24 History release lithium carbonate 300 mg tablet 300 mg PO BID 04/30/24 08/17/24 08/14/24 History omeprazole 20 mg capsule,delayed 20 mg PO Q OTHER DAY 04/30/24 08/17/24 08/14/24 History release prazosin 5 mg capsule 15 mg PO BEDTIME 04/30/24 08/17/24 08/14/24 History trazodone 100 mg tablet 200 mg PO BEDTIME insomnia 04/30/24 08/17/24 08/14/24 History cetirizine 10 mg tablet 10 mg PO DAILY 05/17/24 08/17/24 08/14/24 History multivitamin 1 tab PO DAILY 05/17/24 08/17/24 08/14/24 History psyllium husk 0.4 gram capsule 0.8 g PO BID 05/17/24 08/15/24 08/14/24 History (Daily Fiber) zolpidem 10 mg tablet 10 mg PO BEDTIME insomnia 05/17/24 08/17/24 08/14/24 History calcium 600 mg (as 1 tab PO BID 07/29/24 08/17/24 08/14/24 History carbonate)-vitamin D3 10 mcg (400 unit) tablet cholecalciferol (vitamin D3) 25 25 mcg PO DAILY 07/29/24 08/17/24 08/14/24 History mcg (1,000 unit) tablet (Vitamin D3) fluticasone propionate 230 2 puff inhalation BID 07/29/24 08/17/24 08/14/24 History mcg-salmeterol 21 mcg/actuation HFA inhaler (Advair HFA) acetaminophen 500 mg tablet 500 mg PO Q6H PRN Pain 08/15/24 08/15/24 08/14/24 History fluticasone propionate 50 2 spray intranasal DAILY 08/15/24 08/17/24 08/14/24 History mcg/actuation nasal spray,suspension haloperidol 5 mg tablet 5 mg PO TID 08/15/24 08/17/24 08/14/24 History haloperidol decanoate 100 mg/mL 75 mg IM Q28D 08/15/24 08/17/24 08/14/24 History intramuscular solution lidocaine 5 % topical patch 1 patch topical DAILY 08/15/24 08/15/24 08/14/24 History nicotine (polacrilex) 2 mg gum 2 mg PO Q2H PRN Cravings 08/15/24 08/15/24 08/14/24 History polyethylene glycol 3350 17 17 g PO DAILY PRN Constipation 08/15/24 08/15/24 08/14/24 History gram/dose oral powder (Miralax) prazosin 1 mg capsule 1 mg PO BEDTIME 08/15/24 08/17/24 08/14/24 History budesonide-formoterol HFA 160 2 puff inhalation BID 08/17/24 08/17/24 Unknown History mcg-4.5 mcg/actuation aerosol inhaler (Symbicort) Exam Height,Weight and Vital Signs: Height 4 ft 11 in Weight 99.79 kg Last Vital Signs Temp 97.8 F 09/08/24 06:34 Pulse 103 H 09/08/24 06:34 Resp 15 09/08/24 06:34 BP 141/68 H 09/08/24 06:34 Pulse Ox 99 09/08/24 06:34 O2 Del Method Room Air 09/08/24 06:34 Airway Mallampati Class: II TM Dist: >3cm Neck ROM: Full Heart: rrr Lungs: cta Assessment and Plan Assessment Anesthesia Assessment: Anesthesia Plan Discussed and Chart Reviewed Final Anesthetic Review Family History of Problems with Anesthesia: No History of Problems with Anesthesia: No NPO: Yes ASA Class: III Final Preanesthetic Review: No Changes in Pt Med Stat, Meds/Allgs Chart Reviewed and Consent Obtained/Reviewed Patient Risk: Intermediate Procedure Risk: Intermediate Anesthetic Plan Anesthetic Plan: GA Disposition: Standard PACU
[2024-09-08] MEDS: Lactated Ringers 1,000 ML 50 ML IVCONT (06:53)
--- NOTE | 2024-09-08 07:02 | MHC.SHP ---
Pre-Procedural Eval Section A - 24 Hr Update-Section A only Date of Service: 09/08/24 The patient is an INPATIENT: No Changes since office visit: No Cold of Flu in the past 2 weeks, No New Medical Problems, No Changes in Medication and No Patient answered all questions The patient has been examined within 24 hours of the surgical procedure. The History & Physical has been completed within 30 days and I have reviewed it.: Yes Section B - Complete if H&P > 30 days Chief Complaint: depression Details of Present Illness: feeling better Allergies: Allergies Allergy/AdvReac Type Severity Reaction Status Date / Time carbamazepine [From TEGRETOL] AdvReac Mild Nausea and Verified 08/29/24 21:33 Vomiting topiramate [From Topamax] AdvReac Mild Nausea and Verified 08/29/24 21:33 Vomiting Review of Systems Sugical H&P ROS: Negative: Constitution, Cardiovascular, Respiratory, Neurological and Psychiatric Exam Surgical H&P Exam: Normal: Heart, Normal: Lungs and Normal: Neurological Plan Diagnosis/Plan: Unchanged I have reviewed the history and physical and performed a pertinent physical examination on my patient. No changes have occurred unless specified. Time Spent With Patient Time: Total time managing care of this patient today ____ minutes.
--- NOTE | 2024-09-08 07:06 | P.PCN_ITS ---
ECT Procedure Note Diagnosis/Treatment Date of Service: 09/08/24 Diagnosis: Major Depressive Disorder Previous ECT Date: 08/28/24 Current Treatment Number: 6 Treatment: Maintenance Interval Clinical Notes: pt reports much improvement in mood; denies depression Time: Total time managing care of this patient today ____ minutes. ECT Settings Device: THYMATRON DGx Electrode Placement: Bitemporal Program/Pulse Width: 0.50 Energy Percent: 100 Seizure Duration By EEG (in seconds): 18 By Motor Observation (in seconds): 14 Medications Administration General Anesthetic: Etomidate (14) Muscle Relaxant: Succinylcholine (80) Ancillary Medications Anti-emetics: Zofran - Pre ECT Miscillaneous Medications: Propofol (20) Airway Management Airway Management: LMA Treatment Recommendations No Changes Recommended: No change Electrode Placement: Bitemporal Program/Pulse Width: 0.50 Energy Percent: 100 Notes: short seizure reports mood much better; even considering moving out of skilled nursing into own apt. Pt Tolerated Procedure w/o Issue: Yes
[2024-09-08] MEDS: Heparin Sodium,Porcine Flush 50 UNITS, 0.9 % Sodium Chloride Flush 5 ML IVFLUSH (08:10)
[2024-09-08] MEDS: 0.9 % Sodium Chloride Flush 3 ML SYRINGE 5 ML IVFLUSH (08:10)
== END 2024-09-08 09:09 | disposition home or self-care (01) ==
PROVIDERS: PCP Nurse Practitioner Family; Visit Provider Psychiatry & Neurology Psychiatry
PROC: (CPT 90870; principal; 2024-09-08 07:30)
DX: F33.2 Major depressive disorder, recurrent severe without psychotic features (principal); F43.10 Post-traumatic stress disorder, unspecified; J44.9 Chronic obstructive pulmonary disease, unspecified; J45.40 Moderate persistent asthma, uncomplicated; G47.33 Obstructive sleep apnea (adult) (pediatric); Z79.51 Long term (current) use of inhaled steroids; Z79.1 Long term (current) use of non-steroidal anti-inflammatories (NSAID); Z79.899 Other long term (current) drug therapy; Z88.8 Allergy status to other drugs, medicaments and biological substances; Z87.891 Personal history of nicotine dependence
CPT/HCPCS: 90870; J0330; J1642; J2405; J2704

== ENCOUNTER → 2024-09-08 05:55 | Outpatient (BNV) | payer OTHER, SELFPAY | PROVIDERS: PCP Nurse Practitioner Family; Visit Provider Psychiatry & Neurology Psychiatry | DX: F33.3 Major depressive disorder, recurrent, severe with psychotic symptoms (principal) | CPT/HCPCS: 90870 ==

== ENCOUNTER 2024-09-11 10:43 | Emergency (ER) | payer OTHER, SELFPAY ==
--- NOTE | ~2024-09-11 | CT_ITS ---
EXAMINATION: CT HEAD WITHOUT CONTRAST CLINICAL INFORMATION: Interstitial head strike to the wall COMPARISON: CT brain 03/30/2023. TECHNIQUE: Contiguous axial imaging was performed from the skull base to vertex without intravenous administration of contrast. This CT examination was performed using dose optimization techniques as appropriate, variously including the following: *Automated exposure control *Adjustment of mA and/or kV according to patient size (this includes techniques or standardized protocols for targeted exams where dose is matched to indication/reason for exam; i.e. extremities or head) *Use of iterative reconstruction technique DLP: 646 mGy/cm. FINDINGS: There is no acute intra-axial, extra-axial bleed, masses or midline shift. No acute infarction evolution. There is no edema. The scruggs to white matter differentiation is maintained normal. Bone windows reveal a calvarial abnormality. Bilateral paranasal sinuses and mastoid air cells are well-aerated. Suspect mild edema along the frontal scalp CT/CT head/brain wo IV con IMPRESSION: No acute intracranial process seen. Suspect mild edema along frontal scalp. Electronically signed by: Bry Cox MD 09/11/2024 04:55 PM EST
--- NOTE | 2024-09-11 11:18 | ED_ITS ---
HPI - General Adult General Chief complaint: Psychiatric Symptoms Stated complaint: PSYCH EVAL,HITTING HEAD ON WALL,HAVING A HARD TIME Time Seen by Provider: 09/11/24 11:16 Source: patient, EMS, RN notes reviewed and old records reviewed Mode of arrival: EMS Limitations: no limitations History of Present Illness ED Provider: Ariadna HPI narrative: Patient is a 39-year-old male with history of schizoaffective disorder, borderline personality disorder, major depressive disorder, PTSD, auditory hallucinations, COPD, asthma, adjustment disorder, anxiety, GERD presenting to the emergency department from custodial after banging her head against the wall and threatening to cut herself with a nail. She states that she felt triggered by custodial staff, today is her biological mother's birthday and her father recently around Kristie time. Admits to suicidal ideation without specific plan. Also reports auditory hallucinations telling her that she is worthless and to kill herself. Denies visual hallucinations. Denies homicidal ideation. She denies headache, blurred vision, double vision, or other visual changes. MD complaint: head injury, SI Location: head Treatments prior to arrival: none Related Data Home Medications ?Medication ?Instructions ?Recorded ?Confirmed albuterol sulfate 90 mcg/actuation 2 puff inhalation QID PRN wheezing 04/30/24 08/17/24 aerosol inhaler (Ventolin HFA) benztropine 0.5 mg tablet 0.5 mg PO BID 04/30/24 08/17/24 clonidine HCl 0.1 mg tablet 0.1 mg PO TID 04/30/24 08/17/24 diphenhydramine HCl 50 mg capsule 100 mg PO BEDTIME insomnia 04/30/24 08/17/24 (Banophen) duloxetine 60 mg capsule,delayed 60 mg PO DAILY 04/30/24 08/17/24 release lithium carbonate 300 mg tablet 300 mg PO BID 04/30/24 08/17/24 omeprazole 20 mg capsule,delayed 20 mg PO Q OTHER DAY 04/30/24 08/17/24 release prazosin 5 mg capsule 15 mg PO BEDTIME 04/30/24 08/17/24 trazodone 100 mg tablet 200 mg PO BEDTIME insomnia 04/30/24 08/17/24 cetirizine 10 mg tablet 10 mg PO DAILY 05/17/24 08/17/24 multivitamin 1 tab PO DAILY 05/17/24 08/17/24 psyllium husk 0.4 gram capsule 0.8 g PO BID 05/17/24 08/15/24 (Daily Fiber) zolpidem 10 mg tablet 10 mg PO BEDTIME insomnia 05/17/24 08/17/24 calcium 600 mg (as 1 tab PO BID 07/29/24 08/17/24 carbonate)-vitamin D3 10 mcg (400 unit) tablet cholecalciferol (vitamin D3) 25 25 mcg PO DAILY 07/29/24 08/17/24 mcg (1,000 unit) tablet (Vitamin D3) fluticasone propionate 230 2 puff inhalation BID 07/29/24 08/17/24 mcg-salmeterol 21 mcg/actuation HFA inhaler (Advair HFA) acetaminophen 500 mg tablet 500 mg PO Q6H PRN Pain 08/15/24 08/15/24 fluticasone propionate 50 2 spray intranasal DAILY 08/15/24 08/17/24 mcg/actuation nasal spray,suspension haloperidol 5 mg tablet 5 mg PO TID 08/15/24 08/17/24 haloperidol decanoate 100 mg/mL 75 mg IM Q28D 08/15/24 08/17/24 intramuscular solution lidocaine 5 % topical patch 1 patch topical DAILY 08/15/24 08/15/24 nicotine (polacrilex) 2 mg gum 2 mg PO Q2H PRN Cravings 08/15/24 08/15/24 polyethylene glycol 3350 17 17 g PO DAILY PRN Constipation 08/15/24 08/15/24 gram/dose oral powder (Miralax) prazosin 1 mg capsule 1 mg PO BEDTIME 08/15/24 08/17/24 budesonide-formoterol HFA 160 2 puff inhalation BID 08/17/24 08/17/24 mcg-4.5 mcg/actuation aerosol inhaler (Symbicort) Previous Rx's ?Medication ?Instructions ?Recorded lorazepam 1 mg tablet 1 mg PO TID PRN anxiety/agitation 05/22/24 #0 tabs bupropion HCl 150 mg 24 hr tablet, 150 mg PO DAILY 30 days #30 tabs 08/03/24 extended release Ventolin HFA 90 mcg/actuation 2 puff inhalation Q6H PRN 01/15/25 aerosol inhaler (albuterol sulfate) shortness of breath or wheezing #18 grams albuterol sulfate 90 mcg/actuation 2 puff inhalation Q4-6H PRN 08/30/24 aerosol inhaler shortness of breath or wheezing #6.7 grams doxycycline hyclate 100 mg capsule 100 mg PO BID #14 caps 08/30/24 Allergies Allergy/AdvReac Type Severity Reaction Status Date / Time carbamazepine [From TEGRETOL] AdvReac Mild Nausea and Verified 09/11/24 11:46 Vomiting topiramate [From Topamax] AdvReac Mild Nausea and Verified 09/11/24 11:46 Vomiting Review of Systems 2 Review of Systems: As per HPI Yes all other systems are reviewed and are negative Constitutional: Constitutional: Reports as per HPI PMFSH Past Medical History Medical History Pre-op evaluation MDD (major depressive disorder), recurrent, severe, with psychosis Port-A-Cath in place History of electroconvulsive therapy COVID-19 COVID-19 Sprain of left foot Chronic post-traumatic stress disorder (PTSD) COPD (chronic obstructive pulmonary disease) Increased BMI GERD (gastroesophageal reflux disease) Recurrent major depression-severe Acute post-traumatic stress disorder Injury, self-inflicted Suicidal ideation Self-harming behavior Intentional self-harm Suicidal ideation Borderline personality disorder Schizoaffective disorder Adjustment disorder Asthma Depression Anxiety PTSD (post-traumatic stress disorder) Family History Family History Mother Brain cancer Other No family history of cardiac disease Social History Social History Household Members: Other Household Members Other:: group housemates Housing: Other Housing Other:: custodial Do you presently have visiting nurse or other home services: No Unable to assess alcohol history related to: Unable to respond Alcohol intake: never Comment: 1:1 safety observation Patient Tobacco Use Status: Current everyday Tobacco user Tobacco use type: Cigarette Cigarette Packs Per Day: 0.5 Cigarettes Per Day: 10.0 Years Smoked: 15 e-Cigarette/Vaping Use: Former Use Second Hand Smoke Exposure: Yes Use of substances other than those prescribed or required for medical reasons: No Substance Use Type: Marijuana Advance Directives: No Advance Directives Information Provided: Yes Do you have a plan to hurt others: No Plan Patient : No service: No Current occupation: rt handed Sexual orientation: Straight/Heterosexual Physical Exam ED Vital Signs: Vital Signs - 24 hr 09/11/24 11:43 09/11/24 12:00 Temperature 98.4 F 97.8 F Pulse Rate 98 85 Respiratory Rate 18 18 Blood Pressure 113/86 102/69 Pulse Oximetry 98 95 Oxygen Delivery Method Room Air Room Air BMI result Body Mass Index 38.6 Const General: cooperative, healthy appearing and no acute distress Orientation/consciousness: oriented to person, oriented to place, oriented to time and patient oriented x3 Limitations: no limitations HENMT Head: Yes normal to inspection, Yes No palpable skull fracture present, Yes normocephalic, No Bello's sign and No periorbital ecchymosis Ears: external ears normal, TM's normal bilaterally and EAC's normal General nose exam: Normal external nose present and Normal nasal mucous membranes and turbinates present Face and sinus: Yes face symmetric Mouth: oropharynx normal and moist mucous membranes Throat: Yes uvula midline Eyes Pupils: Equal, round and reactive pupils present Neck Neck: Yes normal visual inspection and Yes supple Resp Effort & Inspection: normal respiratory effort and able to speak in complete sentences Auscultation: clear to auscultation bilaterally Cardio Rate: regular rate Rhythm: regular rhythm Heart sounds: S1 normal heart sound present and S2 normal heart sound present GI Palpation (GI): Soft to palpation and nontender Auscultation: normoactive bowel sounds General: Yes no CVA tenderness Back/Spine/Pelvis Back: no CVA tenderness Skin General skin exam: elasticity normal and turgor normal Neuro General: oriented to person, oriented to place, oriented to time, patient oriented x3, gait normal, tone normal, moves all extremities, Normal light touch and pain sensation, no focal motor deficits, CN's II-XI intact bilaterally and deep tendon reflexes 2+ bilaterally Cranial nerves: Yes Equal, round and reactive pupils present Cognition (Neuro): normal cognition Motor exam (neuro): 5/5 motor strength present throughout Extrem General: Yes full ROM, Yes no pedal edema and Yes no calf tenderness Psych Appearance: grossly normal Mental Status: mental status grossly normal Speech and movement: Normal speech and movement present Affect: normal affect Attitude: cooperative Thought process: Normal thought process present Thought content: Suicidality present, no homicidality, Hallucination(s) present auditory; not visual and not tactile and Depressive thoughts present Insight: Fair insight present (Psych) Judgement: Fair judgement present (Psych) Medications Administered Discontinued Medications Generic Name Dose Route Start Last Admin Trade Name Leno PRN Reason Stop Dose Admin Haloperidol Lactate 5 mg 09/11/24 15:25 09/11/24 15:38 Haloperidol Lactate 5 Mg/Ml Vial IM 09/11/24 15:26 5 mg ONCE ONE Administration Lorazepam 1 mg 09/11/24 15:25 09/11/24 15:38 Lorazepam 2 Mg/Ml Vial IM 09/11/24 15:26 1 mg ONCE ONE Administration Medical Decision Making Medical Decision Making [facility] Narrative: Patient is a 39-year-old male with history of schizoaffective disorder, borderline personality disorder, major depressive disorder, PTSD, auditory hallucinations, COPD, asthma, adjustment disorder, anxiety, GERD presenting to the emergency department from custodial after banging her head against the wall and threatening to cut herself with a nail. On exam patient is awake, A+Ox3, VS WNL, afebrile, normal neurological exam without focal deficits, physical exam findings as above. Given reported symptoms and physical exam findings, initial differential includes but is not limited to head contusion, concussion, anxiety, depression, suicidal ideation. Labs unremarkable. Urine drug screen positive for THC, ethanol negative. My interpretation is in agreement with the radiologist's interpretation. Patient reporting anxiety and requesting medication, states she does not want PO medications, insisting on IM stating it works faster. Patient has history of escalating in the ED, will order IM meds to prevent this. Patient signed out to Dr. Canales pending results of CT head. Differential Diagnosis Differential Diagnoses: The differential diagnosis associated with the presentation includes as per [facility] Admission/Observation Consideration of admission/observation: Escalation of care including admission/observation considered Consult Healthcare Provider Management of the patient was discussed with: Behavioral Health Provider Lab Data [facility] Lab Attestation statement: I reviewed the patient's lab results. as per [facility] 09/11/24 14:56 09/11/24 14:56 Labs: Lab Results 09/11/24 09/11/24 Range/Units 12:43 14:56 WBC 6.9 (4.8-10.8) X10*3/uL RBC 4.01 L (4.20-5.50) X10*6/uL Hgb 11.8 L (12.0-16.0) g/dl Hct 35.8 L (37.0-47.0) % MCV 89.3 (80.0-98.0) fL MCH 29.4 (27.0-33.0) pg MCHC 33.0 (31.0-35.0) g/dl RDW 12.6 (11.0-16.0) % Plt Count 307 D (160-400) X10*3/uL MPV 10.3 (9.4-12.3) fL Immature Gran % (Auto) 0.4 (0.0-0.4) % Neut % (Auto) 73.5 H (45-73) % Lymph % (Auto) 19.5 L (20-40) % [place] % (Auto) 6.2 (2-11) % Eos % (Auto) 0.1 (0-4) % Baso % (Auto) 0.3 (0-2) % Lymph # (Auto) 1.4 (1.2-4.9) X10*3/uL [place] # (Auto) 0.4 (0.1-1.2) X10*3/uL Eos # (Auto) 0.0 (0.0-0.4) X10*3/uL Baso # (Auto) 0.0 (0.0-0.2) X10*3/uL Abs Immat Gran (auto) 0.03 (0.00-0.03) X10*3/uL Absolute Neuts (auto) 5.1 (2.0-8.3) x10*3/uL Absolute Nucleated RBC 0.000 (0.0-0.012) X10*3/uL Nucleated RBC % (auto) 0.0 (0.0-0.2) /100WBC Sodium 139 (135-145) mmol/L Potassium 3.6 (3.3-5.1) mmol/L Chloride 108 (96-108) mmol/L Carbon Dioxide 22 (22-29) mmol/L Anion Gap 13 (12-20) BUN 7 L (9-16) mg/dL Creatinine 0.67 (0.5-1.4) mg/dL Estim Creat Clear Calc 108.8 Estimated GFR > 60 Random Glucose 126 H (60-115) mg/dL Calcium 9.5 D (8.4-10.2) mg/dL Total Bilirubin 0.3 (0.0-1.0) mg/dL AST 17 (5-31) U/L ALT 13 (0-31) U/L Total Protein 7.6 (6.5-8.0) g/dL Albumin 4.1 (3.5-5.0) g/dL Beta HCG, Quant < 2 mIU/mL Urine Color Yellow Urine Appearance Clear Urine pH 8.0 (5.0-9.0) Ur Specific [place] Site 1.010 (1.005-1.025) Urine Protein Negative (Neg-Trace) mg/dL Urine Glucose (UA) Negative (Negative) mg/dL Urine Ketones Negative (Negative) mg/dL Urine Blood Negative (Negative) Urine Nitrite Negative (Negative) Ur Leukocyte Esterase Negative (Negative) Urine Opiates Screen Not Detected (Not Detect) Ur Buprenorphine Scrn Not Detected (Not Detect) ng/mL Ur Oxycodone Screen Not Detected (Not Detect) ng/mL Urine Methadone Screen Not Detected (Not Detect) ng/mL Urine Fentanyl Screen Not Detected (Not Detect) Ur Barbiturates Screen Not Detected (Not Detect) Ur Phencyclidine Scrn Not Detected (Not Detect) Ur Amphetamines Screen Not Detected (Not Detect) U Benzodiazepines Scrn Not Detected (Not Detect) Urine Cocaine Screen Not Detected (Not Detect) U Marijuana (THC) Screen POSITIVE H (Not Detect) Ethyl Alcohol < 10 mg/dL External Record Review External record reviewed: Inpatient record, Office record and Outpatient record Discharge Plan Discharge Clinical Impression: Acute anxiety, Intentional self-harm by blunt object Patient Disposition: Still a Patient Prescriptions: No Action clonidine HCl 0.1 mg tablet 0.1 mg PO TID Rx Instructions: takes at 0800, 1400 and 2000 benztropine 0.5 mg tablet 0.5 mg PO BID diphenhydramine HCl [Banophen] 50 mg capsule 100 mg PO BEDTIME prazosin 5 mg capsule 15 mg PO BEDTIME trazodone 100 mg tablet 200 mg PO BEDTIME omeprazole 20 mg capsule,delayed release(DR/EC) 20 mg PO Q OTHER DAY albuterol sulfate [Ventolin HFA] 90 mcg/actuation HFA aerosol inhaler 2 puff INHALATION QID PRN (Reason: wheezing) lithium carbonate 300 mg tablet 300 mg PO BID duloxetine 60 mg capsule,delayed release(DR/EC) 60 mg PO DAILY Rx Instructions: takes at 0800 fluticasone propion-salmeterol [Advair HFA] 230-21 mcg/actuation HFA aerosol inhaler 2 puff INHALATION BID cholecalciferol (vitamin D3) [Vitamin D3] 25 mcg (1,000 unit) tablet 25 mcg PO DAILY calcium carbonate-vitamin D3 600 mg-10 mcg (400 unit) tablet 1 tab PO BID bupropion HCl 150 mg Tablet Extended Release 24 Hr 150 mg PO DAILY 30 Days Qty: 30 0RF haloperidol 5 mg tablet 5 mg PO TID nicotine (polacrilex) 2 mg gum 2 mg PO Q2H PRN (Reason: Cravings) prazosin 1 mg capsule 1 mg PO BEDTIME haloperidol decanoate 100 mg/mL solution 75 mg IM Q28D acetaminophen 500 mg Tablet 500 mg PO Q6H PRN (Reason: Pain) lidocaine 5 % adhesive patch,medicated 1 patch topical DAILY polyethylene glycol 3350 [Miralax] 17 gram/dose Powder 17 g PO DAILY PRN (Reason: Constipation) fluticasone propionate 50 mcg/actuation spray,suspension 2 spray intranasal DAILY doxycycline hyclate 100 mg capsule 100 mg PO BID Qty: 14 0RF albuterol sulfate 90 mcg/actuation HFA aerosol inhaler 2 puff inhalation Q4-6H PRN (Reason: shortness of breath or wheezing) Qty: 6.7 0RF albuterol sulfate [Ventolin HFA] 90 mcg/actuation HFA aerosol inhaler 2 puff inhalation Q6H PRN (Reason: shortness of breath or wheezing) Qty: 18 0RF psyllium husk [Daily Fiber] 0.4 gram capsule 0.8 g PO BID zolpidem 10 mg tablet 10 mg PO BEDTIME multivitamin Tablet 1 tab PO DAILY cetirizine 10 mg tablet 10 mg PO DAILY lorazepam 1 mg Tablet 1 mg PO TID PRN (Reason: anxiety/agitation) Qty: 0 0RF budesonide-formoterol [Symbicort] 160-4.5 mcg/actuation HFA aerosol inhaler 2 puff INHALATION BID Interventions: [place]-Suicide Risk Severity Scale Last Done: 09/11/24 14:29 Print Language: Spanish
[2024-09-11 11:43] VITALS: BP 113/86; PULSE 98; RESP 18; TEMP 36.9; O2SAT 98; BMI 38.6
[2024-09-11 12:00] VITALS: BP 102/69; PULSE 85; RESP 18; TEMP 36.6; O2SAT 95
[2024-09-11 12:53] LABS: Appearance Urine Clear; Color Urine Yellow; Glucose Urine UA Negative (Negative); Leukocyte Esterase Urine Negative (Negative); Nitrite Urine Negative (Negative); Urine Blood Negative (Negative); Urine Ketones Negative (Negative); Urine Protein Negative (Neg-Trace)
[2024-09-11 13:01] LABS: Amphetamine Screen Urine Not Detected (Not Detect); Barbiturates, Urine Not Detected (Not Detect); Benzodiazepines Screen Urine Not Detected (Not Detect); Buprenorphine Scr Not Detected (Not Detect); Cannabinoid Screen Urine POSITIVE (Not Detect); Cocaine Screen Urine Not Detected (Not Detect); Fentanyl, urine Not Detected (Not Detect); Methadone Screen, Urine Not Detected (Not Detect); Opiate Screen Urine Not Detected (Not Detect); Oxycodone Screen Urine Not Detected (Not Detect); Phencyclidine Screen Urine Not Detected (Not Detect)
[2024-09-11 15:03] LABS: Basophils Percent Auto 0.3 % (0-2); Eosinophils Percent Auto 0.1 % (0-4); Hematocrit 35.8 % (37.0-47.0); Hemoglobin 11.8 g/dl (12.0-16.0); Imm Gran Abs Auto 0.03 X10*3/uL (0.00-0.03); Imm Gran Pct Auto 0.4 % (0.0-0.4); Lymphocytes Absolute Auto 1.4 X10*3/uL (1.2-4.9); Lymphocytes Percent Auto 19.5 % (20-40); MANUAL DIFF FLAG NO; Mean Corpuscular Hemoglobin 29.4 pg (27.0-33.0); Mean Corpuscular Volume 89.3 fL (80.0-98.0); Mean Platelet Volume 10.3 fL (9.4-12.3); Monocytes Absolute Auto 0.4 X10*3/uL (0.1-1.2); Monocytes Percent Auto 6.2 % (2-11); Neutrophils Absolute Auto 5.1 x10*3/uL (2.0-8.3); Neutrophils Percent Auto 73.5 % (45-73); Platelet Count 307 X10*3/uL (160-400); Red Blood Count 4.01 X10*6/uL (4.20-5.50); Red Cell Distribution Width 12.6 % (11.0-16.0); White Blood Count 6.9 X10*3/uL (4.8-10.8)
[2024-09-11 15:38] LABS: Alanine Aminotransferase 13 U/L (0-31); Albumin Level 4.1 g/dL (3.5-5.0); Anion Gap 13 (12-20); Aspartate Amino Transferase 17 U/L (5-31); Bilirubin Total 0.3 mg/dL (0.0-1.0); Blood Urea Nitrogen 7 mg/dL (9-16); Calcium 9.5 mg/dL (8.4-10.2); Carbon Dioxide 22 mmol/L (22-29); Chloride 108 mmol/L (96-108); Creatinine Clr Calc Pharmacy 108.8; Estimated Glomerular Filt Rate > 60; Ethanol < 10 mg/dL; Glucose Random 126 mg/dL (60-115); Potassium 3.6 mmol/L (3.3-5.1); Sodium 139 mmol/L (135-145); Total Protein 7.6 g/dL (6.5-8.0)
[2024-09-11] MEDS: Haloperidol Lactate 5 MG/ML VIAL IM (15:38)
[2024-09-11] MEDS: LORazepam 2 MG/ML VIAL 1 MG IM (15:38)
--- NOTE | 2024-09-11 15:40 | PC.NURSE ---
pt requesting IM medication d/t increase in anxiety.
[2024-09-11 15:44] LABS: HCG Quantitative < 2 mIU/mL
[2024-09-11 15:50] LABS: Alkaline Phosphatase 62 U/L (39-117)
--- NOTE | 2024-09-11 15:59 | PC.NURSE ---
belongings locked in [facility] 1
[2024-09-11 16:13] VITALS: BP 115/58; PULSE 91; RESP 16; TEMP 36.5; O2SAT 97
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
--- NOTE | 2024-09-11 17:45 | PC.NURSE ---
pt resting with eyes closed at this time. pending CARE team eval. RR even and unlabored, no distress noted
[2024-09-12 06:00] VITALS: BP 133/69; PULSE 85; RESP 16; TEMP 37.2; O2SAT 96
--- NOTE | 2024-09-12 07:15 | PC.NURSE ---
report taken fromn previous rn at 0700, pt is asleep with nonlabored resps. plan is for reval by care team this am.
[2024-09-12] MEDS: LORazepam 1 MG TABLET PO (10:46)
[2024-09-12 12:00] VITALS: BP 137/88; PULSE 81; RESP 16; TEMP 36.9; O2SAT 96
== END 2024-09-12 12:03 | disposition home or self-care (01) ==
PROVIDERS: Registered Nurse Emergency; Emergency Provider Emergency Medicine; PCP Nurse Practitioner Family
DX: F41.9 Anxiety disorder, unspecified (principal); R45.851 Suicidal ideations; Z91.52 Personal history of nonsuicidal self-harm; F25.1 Schizoaffective disorder, depressive type; F43.12 Post-traumatic stress disorder, chronic; F60.3 Borderline personality disorder; F43.20 Adjustment disorder, unspecified; J44.9 Chronic obstructive pulmonary disease, unspecified; F17.210 Nicotine dependence, cigarettes, uncomplicated; F12.90 Cannabis use, unspecified, uncomplicated; Z79.899 Other long term (current) drug therapy
CPT/HCPCS: 36415; 70450; 80053; 80307; 81003; 84702; 85025; 96372; 99284; 99285; J1630; J2060; S9485

== ENCOUNTER → 2024-09-11 11:26 | Outpatient (BNV) | payer OTHER, SELFPAY | PROVIDERS: Emergency Provider Emergency Medicine; PCP Nurse Practitioner Family; Visit Provider Radiology Diagnostic Radiology | DX: S09.90XA Unspecified injury of head, initial encounter (principal) | CPT/HCPCS: 70450 ==

== ENCOUNTER 2024-09-18 05:47 | Day surgery (SDC) | payer OTHER, SELFPAY ==
[2024-09-18 06:30] VITALS: BMI 40.2
--- NOTE | 2024-09-18 07:03 | MHC.SHP ---
Pre-Procedural Eval Section A - 24 Hr Update-Section A only Date of Service: 09/18/24 The patient is an INPATIENT: No Changes since office visit: No Cold of Flu in the past 2 weeks, No New Medical Problems, No Changes in Medication and No Patient answered all questions The patient has been examined within 24 hours of the surgical procedure. The History & Physical has been completed within 30 days and I have reviewed it.: Yes Section B - Complete if H&P > 30 days Chief Complaint: depression Allergies: Allergies Allergy/AdvReac Type Severity Reaction Status Date / Time carbamazepine [From TEGRETOL] AdvReac Mild Nausea and Verified 09/11/24 11:46 Vomiting topiramate [From Topamax] AdvReac Mild Nausea and Verified 09/11/24 11:46 Vomiting Plan I have reviewed the history and physical and performed a pertinent physical examination on my patient. No changes have occurred unless specified. Time Spent With Patient Time: Total time managing care of this patient today ____ minutes.
--- NOTE | 2024-09-18 07:24 | HO.ECTPROC ---
ECT Procedure Note Diagnosis/Treatment Date of Service: 09/18/24 Diagnosis: Schizoaffective Disorder Previous ECT Date: 09/08/24 Treatment: Maintenance Interval Clinical Notes: The patient reported improvement of depression. She is going to get her own apartment pretty soon. No side effects with the previous ECT. ECT done as usual, no complications, woke up well. Time: Total time managing care of this patient today _30___ minutes. ECT Settings Device: THYMATRON DGx Electrode Placement: Bitemporal Program/Pulse Width: 0.50 Energy Percent: 100 Seizure Duration By EEG (in seconds): 23 By Motor Observation (in seconds): 17 Medications Administration General Anesthetic: Etomidate (14) Muscle Relaxant: Succinylcholine (80) Ancillary Medications Anti-emetics: Zofran - Pre ECT Miscillaneous Medications: Propofol (post ECT 20 MG) Airway Management Airway Management: Bag Mask Ventilation Treatment Recommendations No Changes Recommended: No change Pt Tolerated Procedure w/o Issue: Yes
[2024-09-18 07:30] VITALS: BP 127/71; PULSE 86; RESP 16; TEMP 36.4; O2SAT 97
[2024-09-18 07:35] VITALS: BP 122/76; PULSE 89; RESP 16; O2SAT 96
[2024-09-18 07:40] VITALS: BP 116/84; PULSE 88; RESP 16; O2SAT 96
[2024-09-18 07:45] VITALS: BP 107/87; PULSE 91; RESP 16; O2SAT 97
[2024-09-18 08:00] VITALS: BP 125/77; PULSE 91; RESP 16; O2SAT 98
[2024-09-18 08:15] VITALS: BP 123/72; PULSE 82; RESP 18; TEMP 36.6; O2SAT 98
[2024-09-18] MEDS: 0.9 % Sodium Chloride Flush 10 ML SYRINGE 5 ML IVFLUSH (08:15)
[2024-09-18] MEDS: Heparin Sodium,Porcine Flush 500 UNIT/5 ML SYRINGE IVFLUSH (08:16)
--- NOTE | 2024-09-18 09:20 | P.CONAN_ITS ---
[facility] Active Problems Active Problems: All Active Problems MDD (major depressive disorder), recurrent, severe, with psychosis (Acute) Depression (Acute) Osteoarthritis of right knee (Acute) Chronic post-traumatic stress disorder (PTSD) (Chronic) Schizoaffective disorder, depressive type (Chronic) Borderline personality disorder (Chronic) Auditory hallucinations (Acute) Port-A-Cath in place (Acute) Intentional self-harm (Acute) COPD (chronic obstructive pulmonary disease) (Acute) Asthma (Acute) Adjustment disorder (Acute) Anxiety (Acute) Injury of ligament of right knee (Acute) Sprain of anterior cruciate ligament of right knee (Acute) Hernia (Chronic) Increased BMI (Acute) GERD (gastroesophageal reflux disease) (Acute) Past Medical History Medical History Depression with suicidal ideation Pre-op evaluation MDD (major depressive disorder), recurrent, severe, with psychosis Port-A-Cath in place History of electroconvulsive therapy COVID-19 COVID-19 Sprain of left foot Chronic post-traumatic stress disorder (PTSD) COPD (chronic obstructive pulmonary disease) Increased BMI GERD (gastroesophageal reflux disease) Recurrent major depression-severe Acute post-traumatic stress disorder Injury, self-inflicted Suicidal ideation Self-harming behavior Intentional self-harm Suicidal ideation Borderline personality disorder Schizoaffective disorder Adjustment disorder Asthma Depression Anxiety PTSD (post-traumatic stress disorder) Functional capacity: independent ambulation Family History Family History Mother Brain cancer Other No family history of cardiac disease Family history of problems with anesthesia: No Surgical History History of Problems with Anesthesia: No Social History Social History Household Members: Other Household Members Other:: group housemates Housing: Other Housing Other:: long-term Do you presently have visiting nurse or other home services: No Unable to assess alcohol history related to: Unable to respond Alcohol intake: never Comment: 1:1 safety observation Patient Tobacco Use Status: Current everyday Tobacco user Tobacco use type: Cigarette Cigarette Packs Per Day: 0.5 Cigarettes Per Day: 10.0 Years Smoked: 15 e-Cigarette/Vaping Use: Former Use Second Hand Smoke Exposure: Yes Substance Use Type: Marijuana service: No Current occupation: rt handed Sexual orientation: Straight/Heterosexual Meds Allergies Allergy/AdvReac Type Severity Reaction Status Date / Time carbamazepine [From TEGRETOL] AdvReac Mild Nausea and Verified 09/11/24 11:46 Vomiting topiramate [From Topamax] AdvReac Mild Nausea and Verified 09/11/24 11:46 Vomiting Home Medications ?Medication ?Instructions ?Recorded ?Confirmed ?Last Taken ?Type benztropine 0.5 mg tablet 0.5 mg PO BID 04/30/24 09/12/24 09/11/24 08:00 History clonidine HCl 0.1 mg tablet 0.1 mg PO TID 04/30/24 09/12/24 09/11/24 08:00 History diphenhydramine HCl 50 mg capsule 100 mg PO BEDTIME insomnia 04/30/24 09/12/24 09/10/24 20:00 History (Banophen) duloxetine 60 mg capsule,delayed 60 mg PO DAILY 04/30/24 09/12/24 09/11/24 08:00 History release lithium carbonate 300 mg tablet 300 mg PO BID 04/30/24 09/12/24 09/11/24 08:00 History omeprazole 20 mg capsule,delayed 20 mg PO Q OTHER DAY 04/30/24 09/12/24 09/11/24 08:00 History release prazosin 5 mg capsule 15 mg PO BEDTIME 04/30/24 09/12/24 09/10/24 20:00 History trazodone 100 mg tablet 200 mg PO BEDTIME insomnia 04/30/24 09/12/24 09/10/24 20:00 History cetirizine 10 mg tablet 10 mg PO DAILY 05/17/24 09/12/24 09/11/24 08:00 History multivitamin 1 tab PO DAILY 05/17/24 09/12/24 09/11/24 07:00 History psyllium husk 0.4 gram capsule 0.8 g PO BID 05/17/24 09/12/24 09/11/24 08:00 History (Daily Fiber) zolpidem 10 mg tablet 10 mg PO BEDTIME insomnia 05/17/24 09/12/24 09/10/24 20:00 History calcium 600 mg (as 1 tab PO BID 07/29/24 09/12/24 09/11/24 08:00 History carbonate)-vitamin D3 10 mcg (400 unit) tablet cholecalciferol (vitamin D3) 25 25 mcg PO DAILY 07/29/24 09/12/24 09/11/24 07:00 History mcg (1,000 unit) tablet (Vitamin D3) fluticasone propionate 230 2 puff inhalation BID 07/29/24 09/11/24 09/11/24 08:00 History mcg-salmeterol 21 mcg/actuation HFA inhaler (Advair HFA) acetaminophen 500 mg tablet 500 mg PO Q6H PRN Pain 08/15/24 09/11/24 08/14/24 History fluticasone propionate 50 2 spray intranasal DAILY 08/15/24 09/12/24 09/11/24 08:00 History mcg/actuation nasal spray,suspension haloperidol 5 mg tablet 5 mg PO TID 08/15/24 09/12/24 09/11/24 08:00 History haloperidol decanoate 100 mg/mL 75 mg IM Q28D 08/15/24 09/12/24 08/14/24 History intramuscular solution lidocaine 5 % topical patch 1 patch topical DAILY 08/15/24 09/12/24 09/11/24 08:00 History nicotine (polacrilex) 2 mg gum 2 mg PO Q2H PRN Cravings 08/15/24 09/12/24 08/14/24 History polyethylene glycol 3350 17 17 g PO DAILY PRN Constipation 08/15/24 09/12/24 09/11/24 08:00 History gram/dose oral powder (Miralax) prazosin 1 mg capsule 1 mg PO BEDTIME 08/15/24 09/12/24 09/10/24 20:00 History budesonide-formoterol HFA 160 2 puff inhalation BID 08/17/24 09/12/24 09/11/24 08:00 History mcg-4.5 mcg/actuation aerosol inhaler (Symbicort) Exam Height,Weight and Vital Signs: Height 4 ft 11 in Weight 90.265 kg Last Vital Signs Temp 97.8 F 09/18/24 08:15 Pulse 82 09/18/24 08:15 Resp 18 09/18/24 08:15 BP 123/72 09/18/24 08:15 Pulse Ox 98 09/18/24 08:15 O2 Del Method Room Air 09/18/24 08:15 O2 Flow Rate 2 09/18/24 07:30 Airway Mallampati Class: III TM Dist: >3cm Neck ROM: Full Heart: RRR Lungs: CTA Assessment and Plan Assessment Anesthesia Assessment: Anesthesia Plan Discussed and Chart Reviewed Final Anesthetic Review Family History of Problems with Anesthesia: No History of Problems with Anesthesia: No NPO: Yes ASA Class: III Final Preanesthetic Review: Meds/Allgs Chart Reviewed, Consent Obtained/Reviewed and Anes Risks/Benef Reviewed Patient Risk: Low Procedure Risk: Low Anesthetic Plan Anesthetic Plan: GA Disposition: Standard PACU
--- NOTE | 2024-09-18 09:22 | HO.POSTANES ---
Post Anesthesia Evaluation Post Anesthesia Evaluation Date of Service: 09/18/25 Vital Signs: Vital Signs Temp Pulse Resp BP Pulse Ox O2 Del Method O2 Flow Rate 09/18/24 08:15 97.8 F 82 18 123/72 98 Room Air 09/18/24 08:00 91 16 125/77 98 Room Air 09/18/24 07:45 91 16 107/87 97 Room Air 09/18/24 07:40 88 16 116/84 96 Room Air 09/18/24 07:35 89 16 122/76 96 Room Air 09/18/24 07:30 97.6 F 86 16 127/71 97 Nasal Cannula 2 Anesthesia: General Mental Status: Awake Pain Control: Satisfactory Nausea/Vomiting: None Hydration: Adequate Anesthesia-Related Issues: No Anes. Related Issues
== END 2024-09-18 08:47 | disposition home or self-care (01) ==
PROVIDERS: PCP Nurse Practitioner Family; Visit Provider Psychiatry & Neurology Psychiatry
PROC: (CPT 90870; principal; 2024-09-18 07:00)
DX: F25.9 Schizoaffective disorder, unspecified (principal); F31.9 Bipolar disorder, unspecified; F60.3 Borderline personality disorder; F43.10 Post-traumatic stress disorder, unspecified; J44.9 Chronic obstructive pulmonary disease, unspecified; J45.40 Moderate persistent asthma, uncomplicated; G47.33 Obstructive sleep apnea (adult) (pediatric); Z79.51 Long term (current) use of inhaled steroids; Z79.1 Long term (current) use of non-steroidal anti-inflammatories (NSAID); Z79.899 Other long term (current) drug therapy; Z88.8 Allergy status to other drugs, medicaments and biological substances; F17.210 Nicotine dependence, cigarettes, uncomplicated
CPT/HCPCS: 90870; J0330; J1642; J2405; J2704

== ENCOUNTER → 2024-09-18 05:47 | Outpatient (BNV) | payer OTHER, SELFPAY | PROVIDERS: PCP Nurse Practitioner Family; Visit Provider Psychiatry & Neurology Psychiatry | DX: F33.3 Major depressive disorder, recurrent, severe with psychotic symptoms (principal) | CPT/HCPCS: 90870 ==

== ENCOUNTER 2024-09-18 15:01 | Inpatient (IN) | payer OTHER, SELFPAY ==
--- NOTE | ~2024-09-18 | XR_ITS ---
CLINICAL HISTORY: left ankle pain s p trauma 4 view left ankle Comparison: None Findings: No acute fracture. Well corticated ossific focus adjacent to the distal fibula present, possibly congenital ossicle versus chronic ununited fracture fragment. No dislocations. No significant arthritic change or erosions. No ankle effusion. No radiopaque foreign body. IMPRESSION: 1. No acute findings. This document has been electronically signed by: Mayur Kohli MD on 09/19/2024 18:41:43
[2024-09-18 15:23] VITALS: BP 117/79; PULSE 84; RESP 16; TEMP 36.8; O2SAT 98; BMI 38.8
--- NOTE | 2024-09-18 15:25 | ED_ITS ---
HPI - General Adult General Chief complaint: Psychiatric Symptoms Stated complaint: SEC 12,THOUGHTS OF SELF HARM PER EMS Time Seen by Provider: 09/18/24 15:25 Source: patient and EMS Mode of arrival: EMS Limitations: no limitations History of Present Illness ED Provider: Kaylee Hilario PA-C HPI narrative: Patient is a 39 year old assigned female at with a history history of COPD, PTSD, adjustment disorder, schizoaffective disorder, and borderline personality disorder presenting to the emergency department today with suicidal ideation. Patient states that she has been feeling more severely suicidal over the last few days with plans of cutting herself. Patient denies any dizziness, lightheadedness, abdominal pain, nausea, vomiting, fever, chills, blurry vision, double vision, loss of vision, chest pain, difficulty breathing, shortness of breath, back pain, night sweats, pain with urination, increased urinary frequency, increased urinary urgency, blood in her urine or stool, syncope or a near syncopal episode, recent trauma or falls, bowel incontinence, bladder incontinence, or any other complaints at this time. Relieving factors: none Exacerbating factors: none Associated symptoms: denies other symptoms Treatments prior to arrival: none Related Data Home Medications ?Medication ?Instructions ?Recorded ?Confirmed benztropine 0.5 mg tablet 0.5 mg PO BID 04/30/24 09/18/24 clonidine HCl 0.1 mg tablet 0.1 mg PO TID 04/30/24 09/18/24 diphenhydramine HCl 50 mg capsule 100 mg PO BEDTIME insomnia 04/30/24 09/18/24 (Banophen) duloxetine 60 mg capsule,delayed 60 mg PO DAILY 04/30/24 09/18/24 release lithium carbonate 300 mg tablet 300 mg PO BID 04/30/24 09/18/24 omeprazole 20 mg capsule,delayed 20 mg PO Q OTHER DAY 04/30/24 09/18/24 release prazosin 5 mg capsule 15 mg PO BEDTIME 04/30/24 09/18/24 trazodone 100 mg tablet 200 mg PO BEDTIME insomnia 04/30/24 09/18/24 cetirizine 10 mg tablet 10 mg PO DAILY 05/17/24 09/18/24 multivitamin 1 tab PO DAILY 05/17/24 09/18/24 psyllium husk 0.4 gram capsule 0.8 g PO BID 05/17/24 09/18/24 (Daily Fiber) zolpidem 10 mg tablet 10 mg PO BEDTIME insomnia 05/17/24 09/18/24 calcium 600 mg (as 1 tab PO BID 07/29/24 09/18/24 carbonate)-vitamin D3 10 mcg (400 unit) tablet cholecalciferol (vitamin D3) 25 25 mcg PO DAILY 07/29/24 09/18/24 mcg (1,000 unit) tablet (Vitamin D3) fluticasone propionate 50 2 spray intranasal DAILY 08/15/24 09/18/24 mcg/actuation nasal spray,suspension haloperidol 5 mg tablet 5 mg PO TID 08/15/24 09/18/24 haloperidol decanoate 100 mg/mL 75 mg IM Q28D 08/15/24 09/18/24 intramuscular solution nicotine (polacrilex) 2 mg gum 2 mg PO Q2H PRN Cravings 08/15/24 09/18/24 prazosin 1 mg capsule 1 mg PO BEDTIME 08/15/24 09/18/24 budesonide-formoterol HFA 160 2 puff inhalation BID 08/17/24 09/18/24 mcg-4.5 mcg/actuation aerosol inhaler (Symbicort) Previous Rx's ?Medication ?Instructions ?Recorded lorazepam 1 mg tablet 1 mg PO TID PRN anxiety/agitation 05/22/24 #0 tabs albuterol sulfate 90 mcg/actuation 2 puff inhalation Q4-6H PRN 08/30/24 aerosol inhaler shortness of breath or wheezing #6.7 grams Allergies Allergy/AdvReac Type Severity Reaction Status Date / Time carbamazepine [From TEGRETOL] AdvReac Mild Nausea and Verified 09/18/24 15:29 Vomiting topiramate [From Topamax] AdvReac Mild Nausea and Verified 09/18/24 15:29 Vomiting Review of Systems 2 Constitutional: Constitutional: Reports no additional constitutional complaints, Denies chills, Denies fever(s) and Denies night sweats Eyes: Eyes: Reports no additional eye complaints, Denies blurry vision, Denies change in vision, Denies diplopia, Denies eye discharge, Denies loss of vision and Denies eye pain ENT: Denies dizziness Cardiovascular: Cardiovascular: Reports no additional cardiovascular complaints, Denies chest pain, Denies lightheadedness, Denies Loss of Consciousness and Denies dyspnea Respiratory: Respiratory: Reports no additional respiratory complaints and Denies dyspnea Gastrointestinal: Gastrointestinal: Reports no additional gastrointestinal complaints, Denies abdominal pain, Denies melena, Denies hematochezia, Denies change in bowel habits and Denies change in stool character Genitourinary: Genitourinary: Denies hematuria, Denies urinary frequency, Denies dysuria, Denies urinary incontinence, Denies urinary hesitancy and Denies urinary urgency Musculoskeletal: Musculoskeletal: Reports no additional musculoskeletal complaints, Denies numbness and Denies tingling Neurologic: Denies dizziness, Denies loss of vision, Denies numbness and Denies tingling Psychiatric: Psychiatric: Denies homicidal ideation and Reports suicidal ideation Endocrine: Endocrine: Reports no additional endocrine complaints Hematologic/Lymphatic: Hematologic/Lymphatic: Reports no additional hematologic/lymphatic complaints Allergic/Immunologic: Allergic/Immunologic: Reports no additional allergic/immunologic complaints PMFSH Past Medical History Attestation statement: The following information was validated with the patient. Source: old records reviewed and nursing notes reviewed Medical History Depression with suicidal ideation Pre-op evaluation MDD (major depressive disorder), recurrent, severe, with psychosis Port-A-Cath in place History of electroconvulsive therapy COVID-19 COVID-19 Sprain of left foot Chronic post-traumatic stress disorder (PTSD) COPD (chronic obstructive pulmonary disease) Increased BMI GERD (gastroesophageal reflux disease) Recurrent major depression-severe Acute post-traumatic stress disorder Injury, self-inflicted Suicidal ideation Self-harming behavior Intentional self-harm Suicidal ideation Borderline personality disorder Schizoaffective disorder Adjustment disorder Asthma Depression Anxiety PTSD (post-traumatic stress disorder) Family History Family History Mother Brain cancer Other No family history of cardiac disease Social History Social History Household Members: Other Household Members Other:: group housemates Housing: Other Housing Other:: [facility] Do you presently have visiting nurse or other home services: No Unable to assess alcohol history related to: Unable to respond Alcohol intake: never Comment: 1:1 safety observation Patient Tobacco Use Status: Current everyday Tobacco user Tobacco use type: Cigarette Cigarette Packs Per Day: 0.5 Cigarettes Per Day: 10.0 Years Smoked: 15 Smoked in Last 30 Days: Yes e-Cigarette/Vaping Use: Former Use Second Hand Smoke Exposure: Yes Use of substances other than those prescribed or required for medical reasons: No Substance Use Type: Marijuana Advance Directives: No Advance Directives Information Provided: No Nutrition Risks: No Nutritional Risk Patient : No service: No Current occupation: rt handed Sexual orientation: Straight/Heterosexual Physical Exam ED Vital Signs: Vital Signs - 24 hr 09/18/24 15:23 09/18/24 15:32 Temperature 98.2 F Pulse Rate 84 Respiratory Rate 16 16 Blood Pressure 117/79 Pulse Oximetry 98 Oxygen Delivery Method Room Air BMI result Body Mass Index 38.8 Const General: cooperative, no acute distress, alert and awake Nutritional Appearance: well nourished Orientation/consciousness: patient oriented x3 Limitations: no limitations HENMT Head: Yes normal to inspection and Yes atraumatic Ears: hearing grossly normal bilaterally and external ears normal General nose exam: Normal external nose present, no nasal discharge noted and no epistaxis Face and sinus: Yes normal facial exam, No abrasion and No laceration Mouth: Normal oral and palatal mucosa present, no drooling and no muffled voice Eyes General: appearance normal, both eyes and all related structures Periorbital: periorbital findings normal Eyelids: Yes eyelids normal Conjunctivae: conjunctivae normal Pupils: Equal, round and reactive pupils present EOM: EOMs intact bilaterally Neck Neck: Yes normal visual inspection, Yes full ROM and Yes no lymphadenopathy Chest Chest palpation & inspection: normal inspection of the chest Resp Effort & Inspection: normal respiratory effort and able to speak in complete sentences GI Inspection: Yes normal to inspection Neuro General: patient oriented x3 and moves all extremities Cranial nerves: Yes Equal, round and reactive pupils present Cognition (Neuro): normal cognition Extrem General: Yes full ROM and Yes capillary refill normal Psych Appearance: grossly normal Mental Status: mental status grossly normal Affect: Sad affect present Attitude: Guarded attititude/behavior present Thought content: Suicidality present Medications Administered Generic Name Dose Route Start Last Admin Trade Name Freq PRN Reason Stop Dose Admin Non-Formulary Medication 75 mg 09/18/24 16:45 09/18/24 18:12 Haloperidol Decanoate IM Not Given Q28D [facility] Medical Decision Making Medical Decision Making MDM Narrative: Patient is a 39 year old assigned female at with a history history of COPD, PTSD, adjustment disorder, schizoaffective disorder, and borderline personality disorder presenting to the emergency department today with suicidal ideation. Patient's physical exam was as noted in the physical exam portion of this note. Patient's blood work was unremarkable. I explained my physical exam findings as well as all test results to the patient. I answered all questions asked by the patient. Patient evaluated by CARE team who recommended inpatient level of psychiatric care. Differential Diagnosis Differential Diagnoses: The differential diagnosis associated with the presentation includes SI Admission/Observation Consideration of admission/observation: Escalation of care including admission/observation considered Patient admitted to our psychiatric unit. Consult Healthcare Provider Management of the patient was discussed with: Behavioral Health Provider (spoke to the CARE team as noted in the MDM Rationale portion of this note.) Lab Data [facility] Lab Attestation statement: I reviewed the patient's lab results. My interpretation of these results are in the MDM Rationale portion of this note. 09/18/24 16:02 09/18/24 16:02 Labs: Lab Results 09/18/24 09/18/24 09/18/24 Range/Units 15:37 15:38 16:02 WBC 7.1 (4.8-10.8) X10*3/uL RBC 3.81 L (4.20-5.50) X10*6/uL Hgb 11.4 L (12.0-16.0) g/dl Hct 34.0 L (37.0-47.0) % MCV 89.2 (80.0-98.0) fL MCH 29.9 (27.0-33.0) pg MCHC 33.5 (31.0-35.0) g/dl RDW 12.8 (11.0-16.0) % Plt Count 292 (160-400) X10*3/uL MPV 10.9 (9.4-12.3) fL Immature Gran % (Auto) 0.3 (0.0-0.4) % Neut % (Auto) 75.3 H (45-73) % Lymph % (Auto) 18.2 L (20-40) % [place] % (Auto) 5.4 (2-11) % Eos % (Auto) 0.4 (0-4) % Baso % (Auto) 0.4 (0-2) % Lymph # (Auto) 1.3 (1.2-4.9) X10*3/uL [place] # (Auto) 0.4 (0.1-1.2) X10*3/uL Eos # (Auto) 0.0 (0.0-0.4) X10*3/uL Baso # (Auto) 0.0 (0.0-0.2) X10*3/uL Abs Immat Gran (auto) 0.02 (0.00-0.03) X10*3/uL Absolute Neuts (auto) 5.3 (2.0-8.3) x10*3/uL Absolute Nucleated RBC 0.000 (0.0-0.012) X10*3/uL Nucleated RBC % (auto) 0.0 (0.0-0.2) /100WBC Sodium 136 (135-145) mmol/L Potassium 3.8 (3.3-5.1) mmol/L Chloride 106 (96-108) mmol/L Carbon Dioxide 24 (22-29) mmol/L Anion Gap 10 L (12-20) BUN 9 (9-16) mg/dL Creatinine 0.72 (0.5-1.4) mg/dL Estim Creat Clear Calc 101.6 Estimated GFR > 60 Random Glucose 95 (60-115) mg/dL Calcium 9.0 (8.4-10.2) mg/dL Total Bilirubin 0.2 (0.0-1.0) mg/dL AST 16 (5-31) U/L ALT 11 (0-31) U/L Alkaline Phosphatase 56 (39-117) U/L Total Protein 7.3 (6.5-8.0) g/dL Albumin 4.2 (3.5-5.0) g/dL Urine Color Yellow Urine Appearance Clear Urine pH 7.0 (5.0-9.0) Ur Specific [place] <= 1.005 (1.005-1.025) Urine Protein Negative (Neg-Trace) mg/dL Urine Glucose (UA) Negative (Negative) mg/dL Urine Ketones Negative (Negative) mg/dL Urine Blood Negative (Negative) Urine Nitrite Negative (Negative) Ur Leukocyte Esterase Negative (Negative) Urine Test NEGATIVE (NEGATIVE) Salicylates < 5.0 L (15-30) mg/dL Urine Opiates Screen Not Detected (Not Detect) Ur Buprenorphine Scrn Not Detected (Not Detect) ng/mL Ur Oxycodone Screen Not Detected (Not Detect) ng/mL Urine Methadone Screen Not Detected (Not Detect) ng/mL Urine Fentanyl Screen Not Detected (Not Detect) Acetaminophen < 3 (<30) mcg/mL Ur Barbiturates Screen Not Detected (Not Detect) Ur Phencyclidine Scrn Not Detected (Not Detect) Ur Amphetamines Screen Not Detected (Not Detect) U Benzodiazepines Scrn Not Detected (Not Detect) Urine Cocaine Screen Not Detected (Not Detect) U Marijuana (THC) Screen POSITIVE H (Not Detect) Ethyl Alcohol < 10 mg/dL COVID-19 (RAFAL) (Negative) COVID-19 Clin Com 09/18/24 Range/Units 16:03 WBC (4.8-10.8) X10*3/uL RBC (4.20-5.50) X10*6/uL Hgb (12.0-16.0) g/dl Hct (37.0-47.0) % MCV (80.0-98.0) fL MCH (27.0-33.0) pg MCHC (31.0-35.0) g/dl RDW (11.0-16.0) % Plt Count (160-400) X10*3/uL MPV (9.4-12.3) fL Immature Gran % (Auto) (0.0-0.4) % Neut % (Auto) (45-73) % Lymph % (Auto) (20-40) % [place] % (Auto) (2-11) % Eos % (Auto) (0-4) % Baso % (Auto) (0-2) % Lymph # (Auto) (1.2-4.9) X10*3/uL [place] # (Auto) (0.1-1.2) X10*3/uL Eos # (Auto) (0.0-0.4) X10*3/uL Baso # (Auto) (0.0-0.2) X10*3/uL Abs Immat Gran (auto) (0.00-0.03) X10*3/uL Absolute Neuts (auto) (2.0-8.3) x10*3/uL Absolute Nucleated RBC (0.0-0.012) X10*3/uL Nucleated RBC % (auto) (0.0-0.2) /100WBC Sodium (135-145) mmol/L Potassium (3.3-5.1) mmol/L Chloride (96-108) mmol/L Carbon Dioxide (22-29) mmol/L Anion Gap (12-20) BUN (9-16) mg/dL Creatinine (0.5-1.4) mg/dL Estim Creat Clear Calc Estimated GFR Random Glucose (60-115) mg/dL Calcium (8.4-10.2) mg/dL Total Bilirubin (0.0-1.0) mg/dL AST (5-31) U/L ALT (0-31) U/L Alkaline Phosphatase (39-117) U/L Total Protein (6.5-8.0) g/dL Albumin (3.5-5.0) g/dL Urine Color Urine Appearance Urine pH (5.0-9.0) Ur Specific [place] (1.005-1.025) Urine Protein (Neg-Trace) mg/dL Urine Glucose (UA) (Negative) mg/dL Urine Ketones (Negative) mg/dL Urine Blood (Negative) Urine Nitrite (Negative) Ur Leukocyte Esterase (Negative) Urine Test (NEGATIVE) Salicylates (15-30) mg/dL Urine Opiates Screen (Not Detect) Ur Buprenorphine Scrn (Not Detect) ng/mL Ur Oxycodone Screen (Not Detect) ng/mL Urine Methadone Screen (Not Detect) ng/mL Urine Fentanyl Screen (Not Detect) Acetaminophen (<30) mcg/mL Ur Barbiturates Screen (Not Detect) Ur Phencyclidine Scrn (Not Detect) Ur Amphetamines Screen (Not Detect) U Benzodiazepines Scrn (Not Detect) Urine Cocaine Screen (Not Detect) U Marijuana (THC) Screen (Not Detect) Ethyl Alcohol mg/dL COVID-19 (RAFAL) Negative (Negative) COVID-19 Clin Com See Note Independent Historian Clinical information obtained from an independent historian. History obtained from or confirmed by: EMS (EMS provided additional history and confirmed the history provided by the patient.) Critical Care Time Critical Care Time Critical Care Time: Yes Total Critical Care Time: 32 Attestation: I spent 32 minutes of Critical Care Time with this patient. This does not include time spent on separately reported billable procedures. Discharge Plan Discharge Clinical Impression: Suicidal ideation Patient Disposition: Admitted As Inpatient Interventions: Webster-Suicide Risk Severity Scale Last Done: 09/18/24 15:33
[2024-09-18 15:32] VITALS: RESP 16
[2024-09-18 15:47] LABS: Appearance Urine Clear; Color Urine Yellow; Glucose Urine UA Negative (Negative); Leukocyte Esterase Urine Negative (Negative); Nitrite Urine Negative (Negative); Specific Gravity - Urine <= 1.005 (1.005-1.025); Urine Blood Negative (Negative); Urine Ketones Negative (Negative); Urine Protein Negative (Neg-Trace)
[2024-09-18 15:48] LABS: UPreg QC Valid YES; Urine Pregnancy NEGATIVE (NEGATIVE)
[2024-09-18 16:03] LABS: Amphetamine Screen Urine Not Detected (Not Detect); Barbiturates, Urine Not Detected (Not Detect); Benzodiazepines Screen Urine Not Detected (Not Detect); Buprenorphine Scr Not Detected (Not Detect); Cannabinoid Screen Urine POSITIVE (Not Detect); Cocaine Screen Urine Not Detected (Not Detect); Fentanyl, urine Not Detected (Not Detect); Methadone Screen, Urine Not Detected (Not Detect); Opiate Screen Urine Not Detected (Not Detect); Oxycodone Screen Urine Not Detected (Not Detect); Phencyclidine Screen Urine Not Detected (Not Detect)
[2024-09-18 16:07] LABS: MANUAL DIFF FLAG NO
[2024-09-18 16:12] LABS: Basophils Percent Auto 0.4 % (0-2); Eosinophils Percent Auto 0.4 % (0-4); Hemoglobin 11.4 g/dl (12.0-16.0); Imm Gran Abs Auto 0.02 X10*3/uL (0.00-0.03); Imm Gran Pct Auto 0.3 % (0.0-0.4); Lymphocytes Absolute Auto 1.3 X10*3/uL (1.2-4.9); Lymphocytes Percent Auto 18.2 % (20-40); Mean Corpuscular HGB Conc 33.5 g/dl (31.0-35.0); Mean Corpuscular Hemoglobin 29.9 pg (27.0-33.0); Mean Corpuscular Volume 89.2 fL (80.0-98.0); Mean Platelet Volume 10.9 fL (9.4-12.3); Monocytes Absolute Auto 0.4 X10*3/uL (0.1-1.2); Monocytes Percent Auto 5.4 % (2-11); Neutrophils Absolute Auto 5.3 x10*3/uL (2.0-8.3); Neutrophils Percent Auto 75.3 % (45-73); Platelet Count 292 X10*3/uL (160-400); Red Blood Count 3.81 X10*6/uL (4.20-5.50); Red Cell Distribution Width 12.8 % (11.0-16.0); White Blood Count 7.1 X10*3/uL (4.8-10.8)
[2024-09-18 16:26] LABS: COVID-19 Test Negative (Negative); IDNOW Serial# 08D9AD1C
[2024-09-18 16:31] LABS: Acetaminophen LAB < 3 mcg/mL (<30); Alanine Aminotransferase 11 U/L (0-31); Albumin Level 4.2 g/dL (3.5-5.0); Alkaline Phosphatase 56 U/L (39-117); Anion Gap 10 (12-20); Aspartate Amino Transferase 16 U/L (5-31); Bilirubin Total 0.2 mg/dL (0.0-1.0); Blood Urea Nitrogen 9 mg/dL (9-16); Carbon Dioxide 24 mmol/L (22-29); Chloride 106 mmol/L (96-108); Creatinine Clr Calc Pharmacy 101.6; Estimated Glomerular Filt Rate > 60; Ethanol < 10 mg/dL; Glucose Random 95 mg/dL (60-115); Potassium 3.8 mmol/L (3.3-5.1); Salicylate < 5.0 mg/dL (15-30); Sodium 136 mmol/L (135-145); Total Protein 7.3 g/dL (6.5-8.0)
--- OUTSIDE RECORDS SUMMARY | 2024-09-18 17:07 | XMS_ITS | Clinical Summary ---
Author Organization [facility] Address [address] [place] [address] Care Team Providers Care Correspondence Specialist Name Role Phone Marcela Gaviria MD Primary Care Provider [phone] Allergies Active Allergy Reactions Criticality Noted Date [...] Administration Dates Next Due DTP 08/03/1991, 8,03/21/1987,01/24,1986 [id number] (Pentacel) 2mo to less than 5yo 11/21/1988 [...] us 2) infection Borderline personality disor thomas ([facility]) 03/07/2010 DX:Borderline personality di sorder ([facility]) Drug abuse ([facility]) 05/16/2010 DX:Drug abu se ([facility]) Irritable bowel syndrome with diarrhea 12/27/2015 DX:Irritable bowel syndrome with diarrhea Allergic rhinitis 03/29/2007 DX:Allergic rh initis Asthma 01/28/2006 DX:Asthma; COMME NT: never intubated BMI 45.0-49.9, adult ([facility]) 01/06/2017 D X:BMI 45.0-49.9, adult ([facility]) Chronic constipation 01/30/2013 DX:Chronic constipation Depression 03/17/2006 [...] Health Maintenance Results * Depression Screening (11/02/2023) [facility] Depression Screening abstracted Historical Provider MD ARAMIS LOCKWOOD E * Lipid panel (10/07/2022) [facility] LDL/HDL Ratio 3 0 - 4 Triglycerides 50 0 - 150 mg/dL Cholesterol 150 0 - 200 mg/dL HDL 55 40 mg/dL LDL Cholesterol 85 0 - 100 mg/dL Blood Venous blood specimen / Unknown Historical Provider LAB BLOOD ORDERAB LES * HIV Screening (02/03/2021) [facility] HIV Screening abstracted Historical Provider MD ARAMIS LOCKWOOD * Hepatitis C Screening (02/03/2021) [facility] Hepatitis C Screening abstracted Historical Provider MD ARAMIS LOCKWOOD * Cervical Cancer Screening: HPV (01/21/2021) [facility] Cervical Cancer Screening: HPV positive, abstracted Historical Provider MD ARAMIS Mayo from Last 3 Months or Most Recently Relevant to Health Maintenance Care Teams Correspondence Specialist Relationship Specialty Start Date End Date Marcela Gaviria MD [address] [place] [id number] PCP - General Internal Medicine 12/24/20
--- NOTE | 2024-09-18 18:38 | PHA.MEDREC ---
Addendum entered by Nestor Estrada luis carlos 09/18/24 19:37: Med rec was reviewed by [facility]. Patient confirmed she no longer takes wellbutrin nor advair, she takes symbicort (see note from Jenny about wellbutrin and advair). Original Note: Pharmacy Consult ? Medication Reconciliation Pharmacy has completed the medication reconciliation. Spoke with patient to confirm some mediacitons and she stated her shelter takes care of all her medications and that she did not know them off the top of her head. I got the group homes number ([phone]) and called them and spoke with a nurse who did patients medications today and she was able to confirm the medications but did not know any information about the haloperidol decanoate 100 mg/mL and stated she is not receiving it anymore from their facility but gets it from her Dr; speaking with the patients nurse in the pod she confirmed the patient was admitted here from 08/17-08/28 and we had given her the haloperidol decanoate 100 mg/mL injection while in the hospital on 08/26. The nurse at the shelter was not sure if the patient was still taking the Omerprazole 20mg tab every other day but when I spoke with the patient she confirmed she is still taking it and stated she did not take one this morning but also did not remember the last time she took it since her shelter gives her her medications. The patient and shelter stated she took her morning medications this morning.
--- NOTE | 2024-09-18 18:59 | PC.NURSE ---
pt reports to this RN that she no longer takes Wellbutrin and Advair
[2024-09-18 20:00] VITALS: BP 129/55; PULSE 76; RESP 16; TEMP 36.8; O2SAT 96
[2024-09-18] MEDS: Benztropine Mesylate 0.5 MG TABLET PO (20:03)
[2024-09-18] MEDS: traZODone HCL 100 MG TABLET 200 MG PO (20:03)
[2024-09-18] MEDS: diphenhydrAMINE HCL 25 MG CAPSULE 100 MG PO (20:03)
[2024-09-18] MEDS: Zolpidem Tartrate 5 MG TABLET 10 MG PO (20:03)
[2024-09-18] MEDS: Lithium Carbonate 300 MG CAPSULE PO (20:03)
[2024-09-18 20:04] VITALS: BP 129/55
[2024-09-18] MEDS: cloNIDine HCL 0.1 MG TABLET PO (20:04)
[2024-09-18] MEDS: Prazosin HCL 5 MG CAPSULE 15 MG PO (20:04)
[2024-09-18] MEDS: HaloperidoL 5 MG TABLET PO (20:04)
[2024-09-18] MEDS: Calcium + Vitamin D 250 MG TABLET 500 MG PO (20:04)
[2024-09-18] MEDS: Prazosin HCL 1 MG CAPSULE PO (20:04)
[2024-09-18 20:59] LABS: Alanine Aminotransferase 15 U/L (0-31); Albumin Level 4.2 g/dL (3.5-5.0); Alkaline Phosphatase 55 U/L (39-117); Anion Gap 11 (12-20); Aspartate Amino Transferase 18 U/L (5-31); Bilirubin Total 0.2 mg/dL (0.0-1.0); Blood Urea Nitrogen 7 mg/dL (9-16); Calcium 9.2 mg/dL (8.4-10.2); Carbon Dioxide 22 mmol/L (22-29); Chloride 108 mmol/L (96-108); Creatinine Clr Calc Pharmacy 109.1; Estimated Glomerular Filt Rate > 60; Glucose Random 99 mg/dL (60-115); Potassium 3.7 mmol/L (3.3-5.1); Sodium 137 mmol/L (135-145); Total Protein 7.4 g/dL (6.5-8.0)
--- NOTE | 2024-09-19 04:14 | PC.ADMIT ---
Patient is a 39 year old single Romansh speaking female admitted as a CV admission to at 2200 after being medically cleared in the [facility]. Patient was evaluated by the CARE team and deemed in need of IPLOC secondary to increased depression with SI. Patient has a long history of IPLOC admissions at local hospitals and at [facility]. She was cooperative with skin check which was unremarkable except for old scarring, noted from previous cutting, on her arms, legs abdomen. Patient was very tired and stated I just really want to go to bed . She denied any current SI, no c/o AVH at the time of admission. Patient was able to contract for safety, but will be on 5 minute safety checks due to her previous history of self harming behaviors. Patient rated both her anxiety and depression 10/10. Her father in the recent past, and patient said she is having a hard time processing the loss. Patient signed a few releases, answered admission questions and was shown to her room. Patient had received her HS medications in the ED and did not request any additional medications.
[2024-09-19] MEDS: Omeprazole 20 MG CAPSULE.DR PO (07:31)
[2024-09-19 07:54] VITALS: BP 132/77; PULSE 79; TEMP 36.9; O2SAT 98
[2024-09-19] MEDS: cloNIDine HCL 0.1 MG TABLET PO ×3 (07:54→19:42)
[2024-09-19] MEDS: Multivitamin TABLET 1 TAB PO (07:55)
[2024-09-19] MEDS: Calcium + Vitamin D 250 MG TABLET 500 MG PO ×2 (07:55→19:41)
[2024-09-19] MEDS: Cholecalciferol (Vitamin D3) 25 MCG TABLET PO (07:55)
[2024-09-19] MEDS: Lithium Carbonate 300 MG CAPSULE PO ×2 (07:55→19:43)
[2024-09-19] MEDS: Benztropine Mesylate 0.5 MG TABLET PO ×2 (07:55→19:42)
[2024-09-19] MEDS: LORazepam 1 MG TABLET PO ×2 (07:55→18:33)
[2024-09-19] MEDS: Loratadine 10 MG TABLET PO (07:55)
[2024-09-19] MEDS: HaloperidoL 5 MG TABLET PO ×3 (07:55→19:41)
[2024-09-19] MEDS: DULoxetine HCl 60 MG CAPSULE.DR PO (07:55)
[2024-09-19] MEDS: Acetaminophen 325 MG TABLET 650 MG PO (08:12)
[2024-09-19 08:16] LABS: Estimated Average Glucose 97 mg/dL; Hemoglobin A1C 104.8633 umol/L; Total Hemoglobin (HGBA1C) 3359.6307 umol/L
[2024-09-19 08:29] LABS: Cholesterol 146 mg/dL (<200); HDL Cholesterol 54 mg/dL (>40); LDL Cholesterol Calculated 81 mg/dL (<100); Triglycerides 57 mg/dL (<150)
[2024-09-19 08:40] LABS: Thyroid Stimulating Hormone 2.57 uIU/mL (0.32-4.0)
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
[2024-09-19] MEDS: Ondansetron ODT 4 MG TAB.RAPDIS TRANSLINGU (09:46)
[2024-09-19] MEDS: Ibuprofen 600 MG TABLET PO (11:39)
[2024-09-19 14:20] VITALS: BP 113/66
[2024-09-19] MEDS: Magnesium Hydrox/Alum Hydrox 30 ML ORAL.SUSP PO (18:15)
[2024-09-19] MEDS: Prazosin HCL 5 MG CAPSULE 15 MG PO (19:42)
[2024-09-19] MEDS: Prazosin HCL 1 MG CAPSULE PO (19:43)
[2024-09-19] MEDS: diphenhydrAMINE HCL 25 MG CAPSULE 100 MG PO (19:43)
[2024-09-19 19:53] VITALS: BP 128/65; PULSE 67; RESP 20; TEMP 36.6; O2SAT 97
[2024-09-19] MEDS: Zolpidem Tartrate 5 MG TABLET 10 MG PO (23:18)
[2024-09-19] MEDS: traZODone HCL 100 MG TABLET 200 MG PO (23:18)
[2024-09-20] MEDS: Fluticasone/Vilanterol 200/25 BLST.W.DEV 1 PUFF INHALE (08:54)
[2024-09-20] MEDS: Lithium Carbonate 300 MG CAPSULE PO ×2 (08:54→20:11)
[2024-09-20] MEDS: Cholecalciferol (Vitamin D3) 25 MCG TABLET PO (08:54)
[2024-09-20] MEDS: Benztropine Mesylate 0.5 MG TABLET PO ×2 (08:55→20:12)
[2024-09-20] MEDS: Calcium + Vitamin D 250 MG TABLET 500 MG PO ×2 (08:55→20:12)
[2024-09-20] MEDS: HaloperidoL 5 MG TABLET PO ×3 (08:55→20:12)
[2024-09-20] MEDS: Multivitamin TABLET 1 TAB PO (08:55)
[2024-09-20] MEDS: Loratadine 10 MG TABLET PO (08:55)
[2024-09-20] MEDS: DULoxetine HCl 30 MG CAPSULE.DR 90 MG PO (08:55)
[2024-09-20 09:26] VITALS: BP 129/77; PULSE 94; RESP 16; TEMP 36.8; O2SAT 96
[2024-09-20 09:28] VITALS: BP 129/72
[2024-09-20] MEDS: LORazepam 1 MG TABLET PO ×2 (09:28→16:57)
[2024-09-20] MEDS: cloNIDine HCL 0.1 MG TABLET PO ×3 (09:28→20:11)
--- NOTE | 2024-09-20 10:05 | P.PNPSI_ITS ---
Subjective Subjective Date of Service: 09/20/24 Reason For Visit: SI Interim History: Met with patient; discussed with team Patient reports continued self-deprecating thoughts, desire to self-harm though has kept herself from it; still hearing voices to herself. Talked about voices and patient continues to agree it is only when she is very depressed. Patient hoping for ECT which is scheduled for this Wednesday. Discussed medications and she continues to agree that likely biggest need is therapy Mental Status Exam Mental Status Exam Narrative: Pt is alert and oriented; behavior is cooperative, relatively calm; dressed in casual attire gown with unkempt hair; numerous of scars up and down bilateral forearms from hx of superficial cutting; mood is described as depressed and affect congruent, downcast; eye contact appropriate; Speech is slowed, quiet; normal prosody; psychomotor retardation present; thought process is goal directed; Thought content is on worries about her father, self harm; otherwise pertinent to relevant topics and without any delusional content, paranoid ideations or grandiosity; +intermittent SI; no HI. intermittent AH; Patients insight and judgment are impaired. Diagnostics Vital Signs (24Hr): Vital Signs - 24 hr 09/19/24 14:20 09/19/24 19:53 09/20/24 09:26 Temperature 97.8 F 98.2 F Pulse Rate 67 94 Respiratory Rate 20 16 Blood Pressure 113/66 128/65 129/77 Pulse Oximetry 97 96 Oxygen Delivery Method Room Air Room Air 09/20/24 09:28 Temperature Pulse Rate Respiratory Rate Blood Pressure 129/72 Pulse Oximetry Oxygen Delivery Method BMI result Body Mass Index 38.8 Labs 09/18/24 16:02 09/18/24 20:35 Labs: Laboratory Results - last 48 hr 09/18/24 09/18/24 09/18/24 15:37 15:38 16:02 WBC 7.1 RBC 3.81 L Hgb 11.4 L Hct 34.0 L MCV 89.2 MCH 29.9 MCHC 33.5 RDW 12.8 Plt Count 292 MPV 10.9 Immature Gran % (Auto) 0.3 Neut % (Auto) 75.3 H Lymph % (Auto) 18.2 L [place] % (Auto) 5.4 Eos % (Auto) 0.4 Baso % (Auto) 0.4 Lymph # (Auto) 1.3 [place] # (Auto) 0.4 Eos # (Auto) 0.0 Baso # (Auto) 0.0 Abs Immat Gran (auto) 0.02 Absolute Neuts (auto) 5.3 Absolute Nucleated RBC 0.000 Nucleated RBC % (auto) 0.0 Sodium 136 Potassium 3.8 Chloride 106 Carbon Dioxide 24 Anion Gap 10 L BUN 9 Creatinine 0.72 Estim Creat Clear Calc 101.6 Estimated GFR > 60 Random Glucose 95 Estimat Average Glucose Hemoglobin A1c % Calcium 9.0 Total Bilirubin 0.2 AST 16 ALT 11 Alkaline Phosphatase 56 Total Protein 7.3 Albumin 4.2 Triglycerides Cholesterol LDL Cholesterol, Calc HDL Cholesterol TSH Urine Color Yellow Urine Appearance Clear Urine pH 7.0 Ur Specific [place] <= 1.005 Urine Protein Negative Urine Glucose (UA) Negative Urine Ketones Negative Urine Blood Negative Urine Nitrite Negative Ur Leukocyte Esterase Negative Urine Test NEGATIVE Salicylates < 5.0 L Urine Opiates Screen Not Detected Ur Buprenorphine Scrn Not Detected Ur Oxycodone Screen Not Detected Urine Methadone Screen Not Detected Urine Fentanyl Screen Not Detected Acetaminophen < 3 Ur Barbiturates Screen Not Detected Ur Phencyclidine Scrn Not Detected Ur Amphetamines Screen Not Detected U Benzodiazepines Scrn Not Detected Urine Cocaine Screen Not Detected U Marijuana (THC) Screen POSITIVE H Ethyl Alcohol < 10 COVID-19 (RAFAL) COVID-19 Clin Com 09/18/24 09/18/24 09/19/24 16:03 20:35 07:43 WBC RBC Hgb Hct MCV MCH MCHC RDW Plt Count MPV Immature Gran % (Auto) Neut % (Auto) Lymph % (Auto) [place] % (Auto) Eos % (Auto) Baso % (Auto) Lymph # (Auto) [place] # (Auto) Eos # (Auto) Baso # (Auto) Abs Immat Gran (auto) Absolute Neuts (auto) Absolute Nucleated RBC Nucleated RBC % (auto) Sodium 137 Potassium 3.7 Chloride 108 Carbon Dioxide 22 Anion Gap 11 L BUN 7 L Creatinine 0.67 Estim Creat Clear Calc 109.1 Estimated GFR > 60 Random Glucose 99 Estimat Average Glucose 97 Hemoglobin A1c % 5.0 Calcium 9.2 Total Bilirubin 0.2 AST 18 ALT 15 Alkaline Phosphatase 55 Total Protein 7.4 Albumin 4.2 Triglycerides 57 Cholesterol 146 LDL Cholesterol, Calc 81 HDL Cholesterol 54 TSH 2.57 Urine Color Urine Appearance Urine pH Ur Specific [place] Urine Protein Urine Glucose (UA) Urine Ketones Urine Blood Urine Nitrite Ur Leukocyte Esterase Urine Test Salicylates Urine Opiates Screen Ur Buprenorphine Scrn Ur Oxycodone Screen Urine Methadone Screen Urine Fentanyl Screen Acetaminophen Ur Barbiturates Screen Ur Phencyclidine Scrn Ur Amphetamines Screen U Benzodiazepines Scrn Urine Cocaine Screen U Marijuana (THC) Screen Ethyl Alcohol COVID-19 (RAFAL) Negative COVID-19 Clin Com See Note Medications Medications Current Medications Acetaminophen (Acetaminophen 325 Mg Tablet) 650 mg PO Q6H PRN PRN Reason: Headache/Pain Mild Scale (1-3) Last Admin: 09/19/24 08:12 Dose: 650 mg Al Hydroxide/Mg Hydroxide (Magnesium Hydrox/Alum Hydrox 30 Ml Oral.Susp) 30 ml PO Q6H PRN PRN Reason: Heartburn/Nausea Last Admin: 09/19/24 18:15 Dose: 30 ml Albuterol Sulfate (Albuterol Sulfate 90 Mcg 8 Gm Inhaler) 2 puff INHALE Q6H PRN PRN Reason: shortness of breath or wheezing Benztropine Mesylate (Benztropine Mesylate 0.5 Mg Tablet) 0.5 mg PO BID [facility] Last Admin: 09/20/24 08:55 Dose: 0.5 mg Calcium Carbonate/Cholecalciferol (Calcium + Vitamin D 250 Mg Tablet) 500 mg PO BID [facility] Last Admin: 09/20/24 08:55 Dose: 500 mg Clonidine HCl (Clonidine Hcl 0.1 Mg Tablet) 0.1 mg PO TID [facility]; Protocol Last Admin: 09/20/24 09:28 Dose: 0.1 mg Diphenhydramine HCl (Diphenhydramine Hcl 25 Mg Capsule) 100 mg PO BEDTIME [facility] Last Admin: 09/19/24 19:43 Dose: 100 mg Duloxetine HCl (Duloxetine Hcl 30 Mg Capsule.Dr) 90 mg PO DAILY [facility] Last Admin: 09/20/24 08:55 Dose: 90 mg Fluticasone Propionate (Fluticasone Propionate Nasal 16 Gm [place]) 2 spray NOSTRIL-B DAILY [facility] Last Admin: 09/19/24 09:26 Dose: Not Given Fluticasone/Vilanterol (Fluticasone/Vilanterol 200/25 Blst.W.Dev) 1 puff INHALE RDAILY [facility] Last Admin: 09/20/24 08:54 Dose: 1 puff Haloperidol (Haloperidol 5 Mg Tablet) 5 mg PO TID [facility] Last Admin: 09/20/24 08:55 Dose: 5 mg Haloperidol Decanoate (Haloperidol Decanoate 50 Mg/Ml Vial) 75 mg IM Q28D [facility] Hydroxyzine HCl (Hydroxyzine Hcl 25 Mg Tablet) 25 mg PO Q6H PRN PRN Reason: Anxiety Ibuprofen (Ibuprofen 600 Mg Tablet) 600 mg PO Q8H PRN PRN Reason: Pain, Mild FOOT PAIN Last Admin: 09/19/24 11:39 Dose: 600 mg [place] Carbonate ([place] Carbonate 300 Mg Capsule) 300 mg PO BID [facility] Last Admin: 09/20/24 08:54 Dose: 300 mg Loratadine (Loratadine 10 Mg Tablet) 10 mg PO DAILY [facility] Last Admin: 09/20/24 08:55 Dose: 10 mg Lorazepam (Lorazepam 1 Mg Tablet) 1 mg PO TID PRN PRN Reason: anxiety/agitation Last Admin: 09/20/24 09:28 Dose: 1 mg Magnesium Hydroxide (Milk Of Magnesia 30 Ml Oral.Susp) 30 ml PO DAILY PRN PRN Reason: Constipation Multivitamins/Vitamin C (Multivitamin Tablet) 1 tab PO DAILY [facility] Last Admin: 09/20/24 08:55 Dose: 1 tab Nicotine Polacrilex (Nicotine Polacrilex 2 Mg Gum) 2 mg BUCCAL Q2H PRN PRN Reason: Cravings Omeprazole (Omeprazole 20 Mg Capsule.Dr) 20 mg PO Q48H [facility] Last Admin: 09/19/24 07:31 Dose: 20 mg Ondansetron HCl (Ondansetron Odt 4 Mg Tab.Rapdis) 4 mg TRANSLINGU Q6H PRN PRN Reason: Nausea and Vomiting Last Admin: 09/19/24 09:46 Dose: 4 mg Prazosin HCl (Prazosin Hcl 1 Mg Capsule) 1 mg PO BEDTIME [facility]; Protocol Last Admin: 09/19/24 19:43 Dose: 1 mg Prazosin HCl (Prazosin Hcl 5 Mg Capsule) 15 mg PO BEDTIME [facility]; Protocol Last Admin: 09/19/24 19:42 Dose: 15 mg Trazodone HCl (Trazodone Hcl 100 Mg Tablet) 200 mg PO BEDTIME [facility] Last Admin: 09/19/24 23:18 Dose: 200 mg Vitamin D (Cholecalciferol (Vitamin D3) 25 Mcg Tablet) 25 mcg PO DAILY [facility] Last Admin: 09/20/24 08:54 Dose: 25 mcg Zolpidem Tartrate (Zolpidem Tartrate 5 Mg Tablet) 10 mg PO BEDTIME [facility] Last Admin: 09/19/24 23:18 Dose: 10 mg Allergies Allergies Allergy/AdvReac Type Severity Reaction Status Date / Time carbamazepine [From TEGRETOL] AdvReac Mild Nausea and Verified 09/18/24 15:29 Vomiting topiramate [From Topamax] AdvReac Mild Nausea and Verified 09/18/24 15:29 Vomiting Assessment & Plan Assessment & Plan (1) MDD (major depressive disorder), recurrent, severe, with psychosis: Status: Acute Code(s): F33.3 - Major depressive disorder, recurrent, severe with psychotic symptoms (2) Chronic post-traumatic stress disorder (PTSD): Status: Chronic Code(s): F43.12 - Post-traumatic stress disorder, chronic (3) Borderline personality disorder: Status: Chronic Code(s): F60.3 - Borderline personality disorder Plan Pt is a 39 y.o. female, with hx of PTSD (extensive trauma history), and BPD, (she carries a dx of schizoaffective DO, depressive type),chronic SI, chronic self-harming urges/ behaviors, COPD/asthma and multiple inpatient admissions/ED visits who presents for overwhelming anxiety and self-harming urges in face of recent loss of father. Currently she is having strong urges to self harm and asks for 1:1 to help her stay safe. She reports AH of voices saying to harm herself (However these are mood congruent and resolve when she's no longer feeling stressed/anxious/depressed). Pt wanted to discuss medication management wondering if adjustments could help her stay out of the hospital more, but concluded that therapy is the missing component to her treatment. Hospital course: 2 remains with urges to self-harm though has kept herself from it; AH to harm herself though she agrees it is mood congruent. Patient wants ECT to be twice a week however policy writer sales discussed that currently this is not indicated and that therapy is more likely the needed treatment Plan: CV One-to-one Increased Cymbalta to 90 mg Continue home medications Scheduling meeting with outpatient team ECT scheduled for Wednesday Patient educated on: diagnosis, medication risk/benefits and ECT Informed Consent: understands Reason for continued inpatient stay Substantial Risk for: rapid decompensation Time Spent With Patient Time: Total time managing care of this patient today ____ minutes.
[2024-09-20] MEDS: hydrOXYzine HCL 25 MG TABLET PO (11:32)
[2024-09-20 15:11] VITALS: BP 112/68
[2024-09-20] MEDS: polyethylene glycoL 3350 17 GM POWD.PACK PO ×2 (18:47→20:24)
[2024-09-20 20:00] VITALS: BP 102/69; PULSE 96; TEMP 36.8; O2SAT 97
[2024-09-20 20:11] VITALS: BP 102/69; BP 109/69
[2024-09-20] MEDS: Prazosin HCL 5 MG CAPSULE 15 MG PO (20:11)
[2024-09-20] MEDS: Prazosin HCL 1 MG CAPSULE PO (20:11)
[2024-09-20] MEDS: diphenhydrAMINE HCL 25 MG CAPSULE 100 MG PO (20:12)
[2024-09-20] MEDS: Zolpidem Tartrate 5 MG TABLET 10 MG PO (20:12)
[2024-09-20] MEDS: traZODone HCL 100 MG TABLET 200 MG PO (20:12)
[2024-09-21 07:00] VITALS: BMI 36.6
[2024-09-21 08:00] VITALS: BP 152/87; PULSE 99; RESP 16; TEMP 36.4; O2SAT 97
[2024-09-21] MEDS: DULoxetine HCl 30 MG CAPSULE.DR 90 MG PO (09:06)
[2024-09-21] MEDS: polyethylene glycoL 3350 17 GM POWD.PACK PO (09:06)
[2024-09-21 09:07] VITALS: BP 152/87
[2024-09-21] MEDS: cloNIDine HCL 0.1 MG TABLET PO ×3 (09:07→20:15)
[2024-09-21] MEDS: Calcium + Vitamin D 250 MG TABLET 500 MG PO ×2 (09:07→20:16)
[2024-09-21] MEDS: Lithium Carbonate 300 MG CAPSULE PO (09:07)
[2024-09-21] MEDS: Multivitamin TABLET 1 TAB PO (09:07)
[2024-09-21] MEDS: Benztropine Mesylate 0.5 MG TABLET PO ×2 (09:07→20:16)
[2024-09-21] MEDS: Omeprazole 20 MG CAPSULE.DR PO (09:07)
[2024-09-21] MEDS: HaloperidoL 5 MG TABLET PO ×3 (09:10→20:15)
[2024-09-21] MEDS: Loratadine 10 MG TABLET PO (09:10)
[2024-09-21] MEDS: Cholecalciferol (Vitamin D3) 25 MCG TABLET PO (09:10)
[2024-09-21] MEDS: LORazepam 1 MG TABLET PO ×2 (11:04→18:10)
--- NOTE | 2024-09-21 12:53 | HO.ECT-CONS ---
History of Present Illness Data of Consult Service Date: 09/21/24 Primary Care Provider: Hafsa Holcomb NP HPI Reason for consult: ECT Risk Stratification Pt is a 39-year-old female with a PMH significant for COPD/asthma overlap syndrome, GERD, PTSD, schizoaffective disorder, and borderline personality disorder [facility] for increasing depression with SI with plan to cut herself secondary to numerous life stressors. Consult placed to hospitalist services for ECT risk stratification. Pt has undergone ECT many times in the past without complications, most recently inpatient last month on 08/28/2024 and most recently outpatient 3 days ago. Reports ECT has helped more than I thought it would . Pt has a known asthma/COPD overlap syndrome on a rescue inhaler inhaler which she uses occasionally. Currently denies any acute respiratory complaints. Denies known history of TBI, stroke, intracranial bleed, intracranial mass, or seizure disorder. No history of bleeding disorders, CAD, or previous difficulties with anesthesia. Pt reports continuing difficulties with constipation, though denies any other acute medical complaints at this time. No fever, chills, nausea, vomiting, abdominal pain. Denies chest pain/pressure, palpitations. No shortness a breath or difficulty breathing. Denies headache or acute vision changes. Previous EKGs reviewed which showed normal sinus rhythm without significant ischemic changes or prolonged QTc. Review of Systems Review of Systems: Pt has no acute medical complaints [facility] Medical History (Updated 09/21/24 @ 15:10 by JUANITO Olivo) Pre-op evaluation Schizoaffective disorder, depressive type Depression with suicidal ideation MDD (major depressive disorder), recurrent, severe, with psychosis Port-A-Cath in place History of electroconvulsive therapy COVID-19 COVID-19 Sprain of left foot Chronic post-traumatic stress disorder (PTSD) COPD (chronic obstructive pulmonary disease) Increased BMI GERD (gastroesophageal reflux disease) Recurrent major depression-severe Acute post-traumatic stress disorder Injury, self-inflicted Suicidal ideation Self-harming behavior Intentional self-harm Suicidal ideation Borderline personality disorder Schizoaffective disorder Adjustment disorder Asthma Depression Anxiety PTSD (post-traumatic stress disorder) Family History Mother Brain cancer Other No family history of cardiac disease Social History Household Members: Other Household Members Other:: group housemates Housing: Other Housing Other:: [facility] Do you presently have visiting nurse or other home services: No Unable to assess alcohol history related to: Unable to respond Alcohol intake: never Comment: 1:1 safety observation Patient Tobacco Use Status: Current everyday Tobacco user Tobacco use type: Cigarette Cigarette Packs Per Day: 0.5 Cigarettes Per Day: 8 Years Smoked: 20 Smoked in Last 30 Days: Yes e-Cigarette/Vaping Use: Former Use Patient Interested in Nicotine Replacement: Yes Patient Given Instructions on How to Stop Smoking: Yes Date Education Initiated: 09/18/24 Second Hand Smoke Exposure: Yes Use of substances other than those prescribed or required for medical reasons: Yes Substance Use Type: Marijuana Substance Use Frequency: Socially Last Used Substance: Just Prior to Admission Currently Displaying Signs/Symptoms of Drug Intoxication Withdrawal: No Any prior treatment program specific to substance use: No Have you been hit, kicked, punched, or otherwise hurt by someone within the past year? If so, by whom?: No Do you feel safe in your current relationship?: No Current Relationship Is there a partner from a previous relationship who is making you feel unsafe now?: No Are you made to feel afraid or neglected: No Spiritual Healthcare Practices: none Alevism Healthcare Practices: none Cultural Healthcare Practices: none Advance Directives: No Advance Directives Information Provided: No Do you have thoughts of harming others: None Do you have a plan to hurt others: No Plan Recently lost weight without trying: Unsure Eating poorly because of decreased appetite: Yes Nutrition Risks: No Nutritional Risk Patient : No : No Poor oral hygiene: No service: No Current occupation: rt handed Sexual orientation: Straight/Heterosexual Meds Allergies Allergy/AdvReac Type Severity Reaction Status Date / Time carbamazepine [From TEGRETOL] AdvReac Mild Nausea and Verified 09/18/24 15:29 Vomiting topiramate [From Topamax] AdvReac Mild Nausea and Verified 09/18/24 15:29 Vomiting Active Medications: Current Medications Acetaminophen (Acetaminophen 325 Mg Tablet) 650 mg PO Q6H PRN PRN Reason: Headache/Pain Mild Scale (1-3) Last Admin: 09/19/24 08:12 Dose: 650 mg Al Hydroxide/Mg Hydroxide (Magnesium Hydrox/Alum Hydrox 30 Ml Oral.Susp) 30 ml PO Q6H PRN PRN Reason: Heartburn/Nausea Last Admin: 09/19/24 18:15 Dose: 30 ml Albuterol Sulfate (Albuterol Sulfate 90 Mcg 8 Gm Inhaler) 2 puff INHALE Q6H PRN PRN Reason: shortness of breath or wheezing Benztropine Mesylate (Benztropine Mesylate 0.5 Mg Tablet) 0.5 mg PO BID [facility] Last Admin: 09/21/24 09:07 Dose: 0.5 mg Calcium Carbonate/Cholecalciferol (Calcium + Vitamin D 250 Mg Tablet) 500 mg PO BID [facility] Last Admin: 09/21/24 09:07 Dose: 500 mg Clonidine HCl (Clonidine Hcl 0.1 Mg Tablet) 0.1 mg PO TID [facility]; Protocol Last Admin: 09/21/24 09:07 Dose: 0.1 mg Diphenhydramine HCl (Diphenhydramine Hcl 25 Mg Capsule) 100 mg PO BEDTIME [facility] Last Admin: 09/20/24 20:12 Dose: 100 mg Duloxetine HCl (Duloxetine Hcl 30 Mg Capsule.Dr) 90 mg PO DAILY [facility] Last Admin: 09/21/24 09:06 Dose: 90 mg Fluticasone Propionate (Fluticasone Propionate Nasal 16 Gm [place]) 2 spray NOSTRIL-B DAILY [facility] Last Admin: 09/21/24 09:10 Dose: Not Given Fluticasone/Vilanterol (Fluticasone/Vilanterol 200/25 Blst.W.Dev) 1 puff INHALE RDAILY [facility] Last Admin: 09/21/24 09:11 Dose: Not Given Haloperidol (Haloperidol 5 Mg Tablet) 5 mg PO TID [facility] Last Admin: 09/21/24 09:10 Dose: 5 mg Haloperidol Decanoate (Haloperidol Decanoate 50 Mg/Ml Vial) 75 mg IM Q28D [facility] Hydroxyzine HCl (Hydroxyzine Hcl 25 Mg Tablet) 25 mg PO Q6H PRN PRN Reason: Anxiety Last Admin: 09/20/24 11:32 Dose: 25 mg Ibuprofen (Ibuprofen 600 Mg Tablet) 600 mg PO Q8H PRN PRN Reason: Pain, Mild FOOT PAIN Last Admin: 09/19/24 11:39 Dose: 600 mg [place] Carbonate ([place] Carbonate 300 Mg Capsule) 300 mg PO BID [facility] Last Admin: 09/21/24 09:07 Dose: 300 mg Loratadine (Loratadine 10 Mg Tablet) 10 mg PO DAILY [facility] Last Admin: 09/21/24 09:10 Dose: 10 mg Lorazepam (Lorazepam 1 Mg Tablet) 1 mg PO TID PRN PRN Reason: anxiety/agitation Last Admin: 09/21/24 11:04 Dose: 1 mg Magnesium Hydroxide (Milk Of Magnesia 30 Ml Oral.Susp) 30 ml PO DAILY PRN PRN Reason: Constipation Multivitamins/Vitamin C (Multivitamin Tablet) 1 tab PO DAILY [facility] Last Admin: 09/21/24 09:07 Dose: 1 tab Nicotine Polacrilex (Nicotine Polacrilex 2 Mg Gum) 2 mg BUCCAL Q2H PRN PRN Reason: Cravings Omeprazole (Omeprazole 20 Mg Capsule.Dr) 20 mg PO Q48H [facility] Last Admin: 09/21/24 09:07 Dose: 20 mg Ondansetron HCl (Ondansetron Odt 4 Mg Tab.Rapdis) 4 mg TRANSLINGU Q6H PRN PRN Reason: Nausea and Vomiting Last Admin: 09/19/24 09:46 Dose: 4 mg Polyethylene Glycol (Polyethylene Glycol 3350 17 Gm Powd.Pack) 17 gm PO TID [facility] Last Admin: 09/21/24 09:06 Dose: 17 gm Prazosin HCl (Prazosin Hcl 1 Mg Capsule) 1 mg PO BEDTIME [facility]; Protocol Last Admin: 09/20/24 20:11 Dose: 1 mg Prazosin HCl (Prazosin Hcl 5 Mg Capsule) 15 mg PO BEDTIME [facility]; Protocol Last Admin: 09/20/24 20:11 Dose: 15 mg Trazodone HCl (Trazodone Hcl 100 Mg Tablet) 200 mg PO BEDTIME [facility] Last Admin: 09/20/24 20:12 Dose: 200 mg Vitamin D (Cholecalciferol (Vitamin D3) 25 Mcg Tablet) 25 mcg PO DAILY [facility] Last Admin: 09/21/24 09:10 Dose: 25 mcg Zolpidem Tartrate (Zolpidem Tartrate 5 Mg Tablet) 10 mg PO BEDTIME [facility] Last Admin: 09/20/24 20:12 Dose: 10 mg Home Medications ?Medication ?Instructions ?Recorded ?Confirmed ?Last Taken ?Type benztropine 0.5 mg tablet 0.5 mg PO BID 04/30/24 09/18/24 09/17/24 History clonidine HCl 0.1 mg tablet 0.1 mg PO TID 04/30/24 09/18/24 09/17/24 History diphenhydramine HCl 50 mg capsule 100 mg PO BEDTIME insomnia 04/30/24 09/18/24 09/17/24 History (Banophen) duloxetine 60 mg capsule,delayed 60 mg PO DAILY 04/30/24 09/18/24 09/17/24 History release lithium carbonate 300 mg tablet 300 mg PO BID 04/30/24 09/18/24 09/17/24 History omeprazole 20 mg capsule,delayed 20 mg PO Q OTHER DAY 04/30/24 09/18/24 09/17/24 History release prazosin 5 mg capsule 15 mg PO BEDTIME 04/30/24 09/18/24 09/17/24 History trazodone 100 mg tablet 200 mg PO BEDTIME insomnia 04/30/24 09/18/24 09/17/24 History cetirizine 10 mg tablet 10 mg PO DAILY 05/17/24 09/18/24 09/17/24 History multivitamin 1 tab PO DAILY 05/17/24 09/18/24 09/17/24 History psyllium husk 0.4 gram capsule 0.8 g PO BID 05/17/24 09/18/24 09/17/24 History (Daily Fiber) zolpidem 10 mg tablet 10 mg PO BEDTIME insomnia 05/17/24 09/18/24 09/17/24 History calcium 600 mg (as 1 tab PO BID 07/29/24 09/18/24 09/17/24 History carbonate)-vitamin D3 10 mcg (400 unit) tablet cholecalciferol (vitamin D3) 25 25 mcg PO DAILY 07/29/24 09/18/24 09/17/24 History mcg (1,000 unit) tablet (Vitamin D3) fluticasone propionate 50 2 spray intranasal DAILY 08/15/24 09/18/24 09/17/24 History mcg/actuation nasal spray,suspension haloperidol 5 mg tablet 5 mg PO TID 08/15/24 09/18/24 09/17/24 History haloperidol decanoate 100 mg/mL 75 mg IM Q28D 08/15/24 09/18/24 08/26/24 10:31 History intramuscular solution nicotine (polacrilex) 2 mg gum 2 mg PO Q2H PRN Cravings 08/15/24 09/18/24 09/17/24 History prazosin 1 mg capsule 1 mg PO BEDTIME 08/15/24 09/18/24 09/17/24 History budesonide-formoterol HFA 160 2 puff inhalation BID 08/17/24 09/18/24 09/17/24 History mcg-4.5 mcg/actuation aerosol inhaler (Symbicort) Physical Exam Vital Signs and Narrative: Vital Signs: Last Vital Signs Temp 97.5 F 09/21/24 08:00 Pulse 99 09/21/24 08:00 Resp 16 09/21/24 08:00 BP 152/87 H 09/21/24 09:07 Pulse Ox 97 09/21/24 08:00 O2 Del Method Room Air 09/21/24 08:00 BMI result Body Mass Index 38.8 General: AOx3, no acute distress Resp: CTA bilaterally CVS: S1, S2, RRR GI: +BS, NT, no distention Skin: Warm, dry Neuro: Cranial nerves II-XII grossly intact bilaterally. Motor grossly intact bilaterally Extremities: No edema Psych: Flat affect Results Labs 09/18/24 16:02 09/18/24 20:35 Assessment and Plan (1) Pre-op evaluation: Status: Acute Plan Pt is a 39-year-old female with a PMH significant for COPD/asthma overlap syndrome, GERD, PTSD, schizoaffective disorder, and borderline personality disorder admitted [facility] for increasing depression with SI with plan to cut herself secondary to numerous life stressors. Consult placed to hospitalist services for ECT risk stratification. ECT pre-op evaluation Patient has undergone ECT multiple times in the past without incident, most recently outpatient 3 days ago Review of prior EKGs without ischemic changes or prolonged QTc; currently denies chest pain/pressure or palpitations No previous known difficulties with anesthesia Revised cardiac risk index: 0 points Based on patient history and exam, there are no medical contraindications to patient undergoing ECT Thank you for allowing us to participate in the care of this patient. Signing off at this time. Please re-consult if any acute complaints or issues arise.
[2024-09-21] MEDS: hydrOXYzine HCL 25 MG TABLET PO ×2 (13:43→20:18)
[2024-09-21 15:07] VITALS: BP 146/73
[2024-09-21] MEDS: diphenhydrAMINE HCL 25 MG CAPSULE PO ×2 (16:46→16:51)
[2024-09-21 20:00] VITALS: BP 121/76; PULSE 90; TEMP 36.7; O2SAT 97
[2024-09-21 20:15] VITALS: BP 121/76
[2024-09-21] MEDS: Prazosin HCL 1 MG CAPSULE PO (20:15)
[2024-09-21] MEDS: diphenhydrAMINE HCL 25 MG CAPSULE 100 MG PO (20:15)
[2024-09-21 20:16] VITALS: BP 121/76
[2024-09-21] MEDS: Prazosin HCL 5 MG CAPSULE 15 MG PO (20:16)
[2024-09-21] MEDS: traZODone HCL 100 MG TABLET 200 MG PO (20:16)
[2024-09-21] MEDS: Acetaminophen 325 MG TABLET 650 MG PO (20:18)
--- NOTE | 2024-09-21 23:39 | P.PNPSI_ITS ---
Subjective Subjective Date of Service: 09/21/24 Reason For Visit: SI Interim History: With patient; discussed with team Patient reports continued nightmares which are really upsetting; continued AH to kill herself. She told staff that she has a suicide plan however later recanted. Rn Cvor did CBT exercise, looking at automatic thoughts and how these trigger feelings and patient said she will try to applied this concept. Discussed ECT for tomorrow. Mental Status Exam Mental Status Exam Narrative: Pt is alert and oriented; behavior is cooperative, relatively calm; dressed in casual attire gown with unkempt hair but adequate hygiene; numerous of scars up and down bilateral forearms from hx of superficial cutting; mood is described as depressed and affect congruent, downcast; eye contact appropriate; Speech is normal volume and rate and prosody; less psychomotor retardation present; thought process is goal directed; Thought content is on struggles with grief, dealing with symptoms; otherwise pertinent to relevant topics and without any delusional content, paranoid ideations or grandiosity; +intermittent SI; no HI. intermittent AH; Patients insight and judgment are impaired. Diagnostics Vital Signs (24Hr): Vital Signs - 24 hr 09/21/24 08:00 09/21/24 09:07 09/21/24 15:07 Temperature 97.5 F Pulse Rate 99 Respiratory Rate 16 Blood Pressure 152/87 H 152/87 H 146/73 H Pulse Oximetry 97 Oxygen Delivery Method Room Air 09/21/24 20:00 09/21/24 20:15 09/21/24 20:15 Temperature 98.0 F Pulse Rate 90 Respiratory Rate Blood Pressure 121/76 121/76 121/76 Pulse Oximetry 97 Oxygen Delivery Method Room Air 09/21/24 20:16 Temperature Pulse Rate Respiratory Rate Blood Pressure 121/76 Pulse Oximetry Oxygen Delivery Method BMI result Body Mass Index 36.6 Labs 09/18/24 16:02 09/18/24 20:35 Medications Medications Current Medications Acetaminophen (Acetaminophen 325 Mg Tablet) 650 mg PO Q6H PRN PRN Reason: Headache/Pain Mild Scale (1-3) Last Admin: 09/21/24 20:18 Dose: 650 mg Al Hydroxide/Mg Hydroxide (Magnesium Hydrox/Alum Hydrox 30 Ml Oral.Susp) 30 ml PO Q6H PRN PRN Reason: Heartburn/Nausea Last Admin: 09/19/24 18:15 Dose: 30 ml Albuterol Sulfate (Albuterol Sulfate 90 Mcg 8 Gm Inhaler) 2 puff INHALE Q6H PRN PRN Reason: shortness of breath or wheezing Benztropine Mesylate (Benztropine Mesylate 0.5 Mg Tablet) 0.5 mg PO BID [facility] Last Admin: 09/21/24 20:16 Dose: 0.5 mg Calcium Carbonate/Cholecalciferol (Calcium + Vitamin D 250 Mg Tablet) 500 mg PO BID [facility] Last Admin: 09/21/24 20:16 Dose: 500 mg Clonidine HCl (Clonidine Hcl 0.1 Mg Tablet) 0.1 mg PO TID [facility]; Protocol Last Admin: 09/21/24 20:15 Dose: 0.1 mg Diphenhydramine HCl (Diphenhydramine Hcl 25 Mg Capsule) 100 mg PO BEDTIME [facility] Last Admin: 09/21/24 20:15 Dose: 100 mg Diphenhydramine HCl (Diphenhydramine Hcl 25 Mg Capsule) 25 mg PO Q4H PRN PRN Reason: itchiness Last Admin: 09/21/24 16:51 Dose: 25 mg Duloxetine HCl (Duloxetine Hcl 30 Mg Capsule.Dr) 90 mg PO DAILY [facility] Last Admin: 09/21/24 09:06 Dose: 90 mg Fluticasone Propionate (Fluticasone Propionate Nasal 16 Gm [place]) 2 spray NOSTRIL-B DAILY [facility] Last Admin: 09/21/24 09:10 Dose: Not Given Fluticasone/Vilanterol (Fluticasone/Vilanterol 200/25 Blst.W.Dev) 1 puff INHALE RDAILY [facility] Last Admin: 09/21/24 09:11 Dose: Not Given Haloperidol (Haloperidol 5 Mg Tablet) 5 mg PO TID [facility] Last Admin: 09/21/24 20:15 Dose: 5 mg Haloperidol Decanoate (Haloperidol Decanoate 50 Mg/Ml Vial) 75 mg IM Q28D [facility] Hydroxyzine HCl (Hydroxyzine Hcl 25 Mg Tablet) 25 mg PO Q6H PRN PRN Reason: Anxiety Last Admin: 09/21/24 20:18 Dose: 25 mg Ibuprofen (Ibuprofen 600 Mg Tablet) 600 mg PO Q8H PRN PRN Reason: Pain, Mild FOOT PAIN Last Admin: 09/19/24 11:39 Dose: 600 mg [place] Carbonate ([place] Carbonate 300 Mg Capsule) 300 mg PO BID [facility] Last Admin: 09/21/24 09:07 Dose: 300 mg Loratadine (Loratadine 10 Mg Tablet) 10 mg PO DAILY [facility] Last Admin: 09/21/24 09:10 Dose: 10 mg Lorazepam (Lorazepam 1 Mg Tablet) 1 mg PO TID PRN PRN Reason: anxiety/agitation Last Admin: 09/21/24 18:10 Dose: 1 mg Magnesium Hydroxide (Milk Of Magnesia 30 Ml Oral.Susp) 30 ml PO DAILY PRN PRN Reason: Constipation Multivitamins/Vitamin C (Multivitamin Tablet) 1 tab PO DAILY [facility] Last Admin: 09/21/24 09:07 Dose: 1 tab Nicotine Polacrilex (Nicotine Polacrilex 2 Mg Gum) 2 mg BUCCAL Q2H PRN PRN Reason: Cravings Omeprazole (Omeprazole 20 Mg Capsule.Dr) 20 mg PO Q48H [facility] Last Admin: 09/21/24 09:07 Dose: 20 mg Ondansetron HCl (Ondansetron Odt 4 Mg Tab.Rapdis) 4 mg TRANSLINGU Q6H PRN PRN Reason: Nausea and Vomiting Last Admin: 09/19/24 09:46 Dose: 4 mg Polyethylene Glycol (Polyethylene Glycol 3350 17 Gm Powd.Pack) 17 gm PO TID [facility] Last Admin: 09/21/24 20:16 Dose: Not Given Prazosin HCl (Prazosin Hcl 1 Mg Capsule) 1 mg PO BEDTIME [facility]; Protocol Last Admin: 09/21/24 20:15 Dose: 1 mg Prazosin HCl (Prazosin Hcl 5 Mg Capsule) 15 mg PO BEDTIME [facility]; Protocol Last Admin: 09/21/24 20:16 Dose: 15 mg Trazodone HCl (Trazodone Hcl 100 Mg Tablet) 200 mg PO BEDTIME [facility] Last Admin: 09/21/24 20:16 Dose: 200 mg Vitamin D (Cholecalciferol (Vitamin D3) 25 Mcg Tablet) 25 mcg PO DAILY [facility] Last Admin: 09/21/24 09:10 Dose: 25 mcg Zolpidem Tartrate (Zolpidem Tartrate 5 Mg Tablet) 10 mg PO BEDTIME [facility] Last Admin: 09/21/24 19:47 Dose: Not Given Allergies Allergies Allergy/AdvReac Type Severity Reaction Status Date / Time carbamazepine [From TEGRETOL] AdvReac Mild Nausea and Verified 09/18/24 15:29 Vomiting topiramate [From Topamax] AdvReac Mild Nausea and Verified 09/18/24 15:29 Vomiting Assessment & Plan Assessment & Plan (1) Chronic post-traumatic stress disorder (PTSD): Status: Chronic Code(s): F43.12 - Post-traumatic stress disorder, chronic (2) Borderline personality disorder: Status: Chronic Code(s): F60.3 - Borderline personality disorder (3) MDD (major depressive disorder), recurrent, severe, with psychosis: Status: Acute Code(s): F33.3 - Major depressive disorder, recurrent, severe with psychotic symptoms Plan Pt is a 39 y.o. female, with hx of PTSD (extensive trauma history), and BPD, (she carries a dx of schizoaffective DO, depressive type),chronic SI, chronic self-harming urges/ behaviors, COPD/asthma and multiple inpatient admissions/ED visits who presents for overwhelming anxiety and self-harming urges in face of recent loss of father. Currently she is having strong urges to self harm and asks for 1:1 to help her stay safe. She reports AH of voices saying to harm herself (However these are mood congruent and resolve when she's no longer feeling stressed/anxious/depressed). Pt wanted to discuss medication management wondering if adjustments could help her stay out of the hospital more, but concluded that therapy is the missing component to her treatment. Hospital course: 2/ remains with urges to self-harm though has kept herself from it; AH to harm herself though she agrees it is mood congruent. Patient wants ECT to be twice a week however procedure writer discussed that currently this is not indicated and that therapy is more likely the needed treatment 09/21 continue treatment plan; ECT tomorrow -discussed case with Dr. Silva who agrees that patient will more likely benefit from consistent outpatient therapy then increasing ECT scheduled Plan: CV One-to-one Increased Cymbalta to 90 mg Continue home medications Scheduling meeting with outpatient team ECT scheduled for Wednesday Patient educated on: diagnosis, medication risk/benefits and therapeutic strategies Informed Consent: understands Reason for continued inpatient stay Substantial Risk for: rapid decompensation Time Spent With Patient Time: Total time managing care of this patient today ____ minutes.
[2024-09-22] VITALS (8 sets, daily range): BP systolic 105–143; BP diastolic 62–91; PULSE 76–109; RESP 14–24; TEMP 36.3–36.8; O2SAT 94–99
--- NOTE | 2024-09-22 06:48 | HO.ANESPROP2 ---
FORM[facility]LY [facility] Active Problems Active Problems: All Active Problems Pre-op evaluation (Acute) Suicidal ideation (Acute) MDD (major depressive disorder), recurrent, severe, with psychosis (Acute) Depression (Acute) Osteoarthritis of right knee (Acute) Chronic post-traumatic stress disorder (PTSD) (Chronic) Borderline personality disorder (Chronic) Auditory hallucinations (Acute) Port-A-Cath in place (Acute) Intentional self-harm (Acute) COPD (chronic obstructive pulmonary disease) (Acute) Asthma (Acute) Adjustment disorder (Acute) Anxiety (Acute) Injury of ligament of right knee (Acute) Sprain of anterior cruciate ligament of right knee (Acute) Hernia (Chronic) Increased BMI (Acute) GERD (gastroesophageal reflux disease) (Acute) Past Medical History Medical History (Updated 09/21/24 @ 15:10 by JUANITO Olivo) Pre-op evaluation Schizoaffective disorder, depressive type Depression with suicidal ideation MDD (major depressive disorder), recurrent, severe, with psychosis Port-A-Cath in place History of electroconvulsive therapy COVID-19 COVID-19 Sprain of left foot Chronic post-traumatic stress disorder (PTSD) COPD (chronic obstructive pulmonary disease) Increased BMI GERD (gastroesophageal reflux disease) Recurrent major depression-severe Acute post-traumatic stress disorder Injury, self-inflicted Suicidal ideation Self-harming behavior Intentional self-harm Suicidal ideation Borderline personality disorder Schizoaffective disorder Adjustment disorder Asthma Depression Anxiety PTSD (post-traumatic stress disorder) Family History Family History Mother Brain cancer Other No family history of cardiac disease Family history of problems with anesthesia: No Surgical History History of Problems with Anesthesia: No Social History Social History Household Members: Other Household Members Other:: group housemates Housing: Other Housing Other:: penitentiary Do you presently have visiting nurse or other home services: No Unable to assess alcohol history related to: Unable to respond Alcohol intake: never Comment: 1:1 safety observation Patient Tobacco Use Status: Current everyday Tobacco user Tobacco use type: Cigarette Cigarette Packs Per Day: 0.5 Cigarettes Per Day: 8 Years Smoked: 20 Smoked in Last 30 Days: Yes e-Cigarette/Vaping Use: Former Use Patient Interested in Nicotine Replacement: Yes Patient Given Instructions on How to Stop Smoking: Yes Date Education Initiated: 09/18/24 Second Hand Smoke Exposure: Yes Use of substances other than those prescribed or required for medical reasons: Yes Substance Use Type: Marijuana Substance Use Frequency: Socially Last Used Substance: Just Prior to Admission Currently Displaying Signs/Symptoms of Drug Intoxication Withdrawal: No Any prior treatment program specific to substance use: No Have you been hit, kicked, punched, or otherwise hurt by someone within the past year? If so, by whom?: No Do you feel safe in your current relationship?: No Current Relationship Is there a partner from a previous relationship who is making you feel unsafe now?: No Are you made to feel afraid or neglected: No Spiritual Healthcare Practices: none Evangelical Healthcare Practices: none Cultural Healthcare Practices: none Advance Directives: No Advance Directives Information Provided: No Do you have thoughts of harming others: None Do you have a plan to hurt others: No Plan Recently lost weight without trying: Unsure Eating poorly because of decreased appetite: Yes Nutrition Risks: No Nutritional Risk Patient : No : No Poor oral hygiene: No service: No Current occupation: rt handed Sexual orientation: Straight/Heterosexual Meds Allergies Allergy/AdvReac Type Severity Reaction Status Date / Time carbamazepine [From TEGRETOL] AdvReac Mild Nausea and Verified 09/18/24 15:29 Vomiting topiramate [From Topamax] AdvReac Mild Nausea and Verified 09/18/24 15:29 Vomiting Active Medications: Current Medications Acetaminophen (Acetaminophen 325 Mg Tablet) 650 mg PO Q6H PRN PRN Reason: Headache/Pain Mild Scale (1-3) Last Admin: 09/21/24 20:18 Dose: 650 mg Al Hydroxide/Mg Hydroxide (Magnesium Hydrox/Alum Hydrox 30 Ml Oral.Susp) 30 ml PO Q6H PRN PRN Reason: Heartburn/Nausea Last Admin: 09/19/24 18:15 Dose: 30 ml Albuterol Sulfate (Albuterol Sulfate 90 Mcg 8 Gm Inhaler) 2 puff INHALE Q6H PRN PRN Reason: shortness of breath or wheezing Benztropine Mesylate (Benztropine Mesylate 0.5 Mg Tablet) 0.5 mg PO BID [facility] Last Admin: 09/21/24 20:16 Dose: 0.5 mg Calcium Carbonate/Cholecalciferol (Calcium + Vitamin D 250 Mg Tablet) 500 mg PO BID [facility] Last Admin: 09/21/24 20:16 Dose: 500 mg Clonidine HCl (Clonidine Hcl 0.1 Mg Tablet) 0.1 mg PO TID [facility]; Protocol Last Admin: 09/21/24 20:15 Dose: 0.1 mg Diphenhydramine HCl (Diphenhydramine Hcl 25 Mg Capsule) 100 mg PO BEDTIME [facility] Last Admin: 09/21/24 20:15 Dose: 100 mg Diphenhydramine HCl (Diphenhydramine Hcl 25 Mg Capsule) 25 mg PO Q4H PRN PRN Reason: itchiness Last Admin: 09/21/24 16:51 Dose: 25 mg Duloxetine HCl (Duloxetine Hcl 30 Mg Capsule.Dr) 90 mg PO DAILY [facility] Last Admin: 09/21/24 09:06 Dose: 90 mg Fluticasone Propionate (Fluticasone Propionate Nasal 16 Gm [place]) 2 spray NOSTRIL-B DAILY [facility] Last Admin: 09/21/24 09:10 Dose: Not Given Fluticasone/Vilanterol (Fluticasone/Vilanterol 200/25 Blst.W.Dev) 1 puff INHALE RDAILY [facility] Last Admin: 09/21/24 09:11 Dose: Not Given Haloperidol (Haloperidol 5 Mg Tablet) 5 mg PO TID [facility] Last Admin: 09/21/24 20:15 Dose: 5 mg Haloperidol Decanoate (Haloperidol Decanoate 50 Mg/Ml Vial) 75 mg IM Q28D [facility] Hydroxyzine HCl (Hydroxyzine Hcl 25 Mg Tablet) 25 mg PO Q6H PRN PRN Reason: Anxiety Last Admin: 09/21/24 20:18 Dose: 25 mg Lactated Ringer's (Lr) 1,000 mls @ 50 mls/hr IVCONT .Q20H [facility] Ibuprofen (Ibuprofen 600 Mg Tablet) 600 mg PO Q8H PRN PRN Reason: Pain, Mild FOOT PAIN Last Admin: 09/19/24 11:39 Dose: 600 mg [place] Carbonate ([place] Carbonate 300 Mg Capsule) 300 mg PO BID [facility] Last Admin: 09/21/24 09:07 Dose: 300 mg Loratadine (Loratadine 10 Mg Tablet) 10 mg PO DAILY [facility] Last Admin: 09/21/24 09:10 Dose: 10 mg Lorazepam (Lorazepam 1 Mg Tablet) 1 mg PO TID PRN PRN Reason: anxiety/agitation Last Admin: 09/21/24 18:10 Dose: 1 mg Magnesium Hydroxide (Milk Of Magnesia 30 Ml Oral.Susp) 30 ml PO DAILY PRN PRN Reason: Constipation Multivitamins/Vitamin C (Multivitamin Tablet) 1 tab PO DAILY [facility] Last Admin: 09/21/24 09:07 Dose: 1 tab Naloxone HCl (Naloxone Hcl 0.4 Mg/Ml Vial) 0.04 mg IVPUSH Q5M PRN PRN Reason: Excessive sedation or RR < 8 Nicotine Polacrilex (Nicotine Polacrilex 2 Mg Gum) 2 mg BUCCAL Q2H PRN PRN Reason: Cravings Omeprazole (Omeprazole 20 Mg Capsule.Dr) 20 mg PO Q48H [facility] Last Admin: 09/21/24 09:07 Dose: 20 mg Ondansetron HCl (Ondansetron Odt 4 Mg Tab.Rapdis) 4 mg TRANSLINGU Q6H PRN PRN Reason: Nausea and Vomiting Last Admin: 09/19/24 09:46 Dose: 4 mg Polyethylene Glycol (Polyethylene Glycol 3350 17 Gm Powd.Pack) 17 gm PO TID [facility] Last Admin: 09/21/24 20:16 Dose: Not Given Prazosin HCl (Prazosin Hcl 1 Mg Capsule) 1 mg PO BEDTIME [facility]; Protocol Last Admin: 09/21/24 20:15 Dose: 1 mg Prazosin HCl (Prazosin Hcl 5 Mg Capsule) 15 mg PO BEDTIME [facility]; Protocol Last Admin: 09/21/24 20:16 Dose: 15 mg Trazodone HCl (Trazodone Hcl 100 Mg Tablet) 200 mg PO BEDTIME [facility] Last Admin: 09/21/24 20:16 Dose: 200 mg Vitamin D (Cholecalciferol (Vitamin D3) 25 Mcg Tablet) 25 mcg PO DAILY [facility] Last Admin: 09/21/24 09:10 Dose: 25 mcg Zolpidem Tartrate (Zolpidem Tartrate 5 Mg Tablet) 10 mg PO BEDTIME [facility] Last Admin: 09/21/24 19:47 Dose: Not Given Home Medications ?Medication ?Instructions ?Recorded ?Confirmed ?Last Taken ?Type benztropine 0.5 mg tablet 0.5 mg PO BID 04/30/24 09/18/24 09/17/24 History clonidine HCl 0.1 mg tablet 0.1 mg PO TID 04/30/24 09/18/24 09/17/24 History diphenhydramine HCl 50 mg capsule 100 mg PO BEDTIME insomnia 04/30/24 09/18/24 09/17/24 History (Banophen) duloxetine 60 mg capsule,delayed 60 mg PO DAILY 04/30/24 09/18/24 09/17/24 History release lithium carbonate 300 mg tablet 300 mg PO BID 04/30/24 09/18/24 09/17/24 History omeprazole 20 mg capsule,delayed 20 mg PO Q OTHER DAY 04/30/24 09/18/24 09/17/24 History release prazosin 5 mg capsule 15 mg PO BEDTIME 04/30/24 09/18/24 09/17/24 History trazodone 100 mg tablet 200 mg PO BEDTIME insomnia 04/30/24 09/18/24 09/17/24 History cetirizine 10 mg tablet 10 mg PO DAILY 05/17/24 09/18/24 09/17/24 History multivitamin 1 tab PO DAILY 05/17/24 09/18/24 09/17/24 History psyllium husk 0.4 gram capsule 0.8 g PO BID 05/17/24 09/18/24 09/17/24 History (Daily Fiber) zolpidem 10 mg tablet 10 mg PO BEDTIME insomnia 05/17/24 09/18/24 09/17/24 History calcium 600 mg (as 1 tab PO BID 07/29/24 09/18/24 09/17/24 History carbonate)-vitamin D3 10 mcg (400 unit) tablet cholecalciferol (vitamin D3) 25 25 mcg PO DAILY 07/29/24 09/18/24 09/17/24 History mcg (1,000 unit) tablet (Vitamin D3) fluticasone propionate 50 2 spray intranasal DAILY 08/15/24 09/18/24 09/17/24 History mcg/actuation nasal spray,suspension haloperidol 5 mg tablet 5 mg PO TID 08/15/24 09/18/24 09/17/24 History haloperidol decanoate 100 mg/mL 75 mg IM Q28D 08/15/24 09/18/24 08/26/24 10:31 History intramuscular solution nicotine (polacrilex) 2 mg gum 2 mg PO Q2H PRN Cravings 08/15/24 09/18/24 09/17/24 History prazosin 1 mg capsule 1 mg PO BEDTIME 08/15/24 09/18/24 09/17/24 History budesonide-formoterol HFA 160 2 puff inhalation BID 08/17/24 09/18/24 09/17/24 History mcg-4.5 mcg/actuation aerosol inhaler (Symbicort) Exam Height,Weight and Vital Signs: Height 4 ft 11 in Weight 82.3 kg Last Vital Signs Temp 98.0 F 09/21/24 20:00 Pulse 90 09/21/24 20:00 Resp 16 09/21/24 08:00 BP 121/76 09/21/24 20:16 Pulse Ox 97 09/21/24 20:00 O2 Del Method Room Air 09/21/24 20:00 Pertinent Lab Results Pertinent Lab Results: Laboratory Tests 09/18/24 09/18/24 09/18/24 15:37 15:38 16:02 WBC 7.1 RBC 3.81 L Hgb 11.4 L Hct 34.0 L MCV 89.2 MCH 29.9 MCHC 33.5 RDW 12.8 Plt Count 292 MPV 10.9 Immature Gran % (Auto) 0.3 Neut % (Auto) 75.3 H Lymph % (Auto) 18.2 L [place] % (Auto) 5.4 Eos % (Auto) 0.4 Baso % (Auto) 0.4 Lymph # (Auto) 1.3 [place] # (Auto) 0.4 Eos # (Auto) 0.0 Baso # (Auto) 0.0 Abs Immat Gran (auto) 0.02 Absolute Neuts (auto) 5.3 Absolute Nucleated RBC 0.000 Nucleated RBC % (auto) 0.0 Sodium 136 Potassium 3.8 Chloride 106 Carbon Dioxide 24 Anion Gap 10 L BUN 9 Creatinine 0.72 Estim Creat Clear Calc 101.6 Estimated GFR > 60 Random Glucose 95 Estimat Average Glucose Hemoglobin A1c % Calcium 9.0 Total Bilirubin 0.2 AST 16 ALT 11 Alkaline Phosphatase 56 Total Protein 7.3 Albumin 4.2 Triglycerides Cholesterol LDL Cholesterol, Calc HDL Cholesterol TSH Urine Color Yellow Urine Appearance Clear Urine pH 7.0 Ur Specific [place] <= 1.005 Urine Protein Negative Urine Glucose (UA) Negative Urine Ketones Negative Urine Blood Negative Urine Nitrite Negative Ur Leukocyte Esterase Negative Urine Test NEGATIVE Salicylates < 5.0 L Urine Opiates Screen Not Detected Ur Buprenorphine Scrn Not Detected Ur Oxycodone Screen Not Detected Urine Methadone Screen Not Detected Urine Fentanyl Screen Not Detected Acetaminophen < 3 Ur Barbiturates Screen Not Detected Ur Phencyclidine Scrn Not Detected Ur Amphetamines Screen Not Detected U Benzodiazepines Scrn Not Detected Urine Cocaine Screen Not Detected U Marijuana (THC) Screen POSITIVE H Ethyl Alcohol < 10 COVID-19 (RAFAL) COVID-19 [employer] Com 09/18/24 09/18/24 09/19/24 16:03 20:35 07:43 WBC RBC Hgb Hct MCV MCH MCHC RDW Plt Count MPV Immature Gran % (Auto) Neut % (Auto) Lymph % (Auto) [place] % (Auto) Eos % (Auto) Baso % (Auto) Lymph # (Auto) [place] # (Auto) Eos # (Auto) Baso # (Auto) Abs Immat Gran (auto) Absolute Neuts (auto) Absolute Nucleated RBC Nucleated RBC % (auto) Sodium 137 Potassium 3.7 Chloride 108 Carbon Dioxide 22 Anion Gap 11 L BUN 7 L Creatinine 0.67 Estim Creat Clear Calc 109.1 Estimated GFR > 60 Random Glucose 99 Estimat Average Glucose 97 Hemoglobin A1c % 5.0 Calcium 9.2 Total Bilirubin 0.2 AST 18 ALT 15 Alkaline Phosphatase 55 Total Protein 7.4 Albumin 4.2 Triglycerides 57 Cholesterol 146 LDL Cholesterol, Calc 81 HDL Cholesterol 54 TSH 2.57 Urine Color Urine Appearance Urine pH Ur Specific [place] Urine Protein Urine Glucose (UA) Urine Ketones Urine Blood Urine Nitrite Ur Leukocyte Esterase Urine Test Salicylates Urine Opiates Screen Ur Buprenorphine Scrn Ur Oxycodone Screen Urine Methadone Screen Urine Fentanyl Screen Acetaminophen Ur Barbiturates Screen Ur Phencyclidine Scrn Ur Amphetamines Screen U Benzodiazepines Scrn Urine Cocaine Screen U Marijuana (THC) Screen Ethyl Alcohol COVID-19 (RAFAL) Negative COVID-19 Clin Com See Note Airway Mallampati Class: II TM Dist: >3cm Neck ROM: Full Heart: rrr Lungs: cta Assessment and Plan Assessment Anesthesia Assessment: Anesthesia Plan Discussed and Chart Reviewed Final Anesthetic Review Family History of Problems with Anesthesia: No History of Problems with Anesthesia: No NPO: Yes ASA Class: III Final Preanesthetic Review: No Changes in Pt Med Stat, Meds/Allgs Chart Reviewed and Consent Obtained/Reviewed Patient Risk: Intermediate Procedure Risk: Intermediate Anesthetic Plan Anesthetic Plan: GA Disposition: Standard PACU
[2024-09-22] MEDS: Lactated Ringers 1,000 ML 50 ML IVCONT (07:07)
--- NOTE | 2024-09-22 07:22 | MHC.SHP ---
Pre-Procedural Eval Section A - 24 Hr Update-Section A only Date of Service: 09/22/24 The patient is an INPATIENT: Yes Changes since office visit: Yes Patient answered all questions; No Cold of Flu in the past 2 weeks, No New Medical Problems and No Changes in Medication The patient has been examined within 24 hours of the surgical procedure. The History & Physical has been completed within 30 days and I have reviewed it.: Yes Section B - Complete if H&P > 30 days Chief Complaint: SI Allergies: Allergies Allergy/AdvReac Type Severity Reaction Status Date / Time carbamazepine [From TEGRETOL] AdvReac Mild Nausea and Verified 09/18/24 15:29 Vomiting topiramate [From Topamax] AdvReac Mild Nausea and Verified 09/18/24 15:29 Vomiting Plan I have reviewed the history and physical and performed a pertinent physical examination on my patient. No changes have occurred unless specified. Time Spent With Patient Time: Total time managing care of this patient today ____ minutes.
--- NOTE | 2024-09-22 07:36 | MHC.SHP ---
Pre-Procedural Eval Section A - 24 Hr Update-Section A only Date of Service: 09/22/24 Changes since office visit: Yes Changes in Medication and Yes Patient answered all questions; No Cold of Flu in the past 2 weeks and No New Medical Problems The patient has been examined within 24 hours of the surgical procedure. The History & Physical has been completed within 30 days and I have reviewed it.: Yes Section B - Complete if H&P > 30 days Chief Complaint: SI Allergies: Allergies Allergy/AdvReac Type Severity Reaction Status Date / Time carbamazepine [From TEGRETOL] AdvReac Mild Nausea and Verified 09/18/24 15:29 Vomiting topiramate [From Topamax] AdvReac Mild Nausea and Verified 09/18/24 15:29 Vomiting Plan I have reviewed the history and physical and performed a pertinent physical examination on my patient. No changes have occurred unless specified. Time Spent With Patient Time: Total time managing care of this patient today ____ minutes.
--- NOTE | 2024-09-22 07:38 | HO.ECTPROC ---
ECT Procedure Note Diagnosis/Treatment Date of Service: 09/22/24 Diagnosis: Major Depressive Disorder Treatment: Maintenance Interval Clinical Notes: Patient's case extensively reviewed with Dr. Hernández. ECT completed bitemporal as usual patient tolerated well. Discussing treatment options and current role ECT in this complex patient Time: Total time managing care of this patient today ____ minutes. ECT Settings Device: THYMATRON DGx Electrode Placement: Bitemporal Program/Pulse Width: 0.50 Energy Percent: 100 Seizure Duration By EEG (in seconds): 26 Medications Administration General Anesthetic: Etomidate (14) Muscle Relaxant: Succinylcholine Airway Management Airway Management: Bag Mask Ventilation Treatment Recommendations No Changes Recommended: No change Notes: no cognitive complaints
--- NOTE | 2024-09-22 08:47 | HO.POSTANES ---
Post Anesthesia Evaluation Post Anesthesia Evaluation Date of Service: 09/22/24 Vital Signs: Vital Signs Temp Pulse Resp BP Pulse Ox O2 Del Method 09/22/24 08:27 97.4 F 92 18 124/69 97 Room Air 09/22/24 08:12 109 H 18 127/80 95 Room Air 09/22/24 08:07 95 14 124/74 95 Room Air 09/22/24 08:02 97.6 F 105 H 24 H 143/91 H 94 Room Air 09/22/24 07:02 97.6 F 85 20 112/81 98 Room Air Anesthesia: General Mental Status: Awake Pain Control: Satisfactory Nausea/Vomiting: None Hydration: Adequate Anesthesia-Related Issues: No Anes. Related Issues
[2024-09-22] MEDS: DULoxetine HCl 30 MG CAPSULE.DR 90 MG PO (09:36)
[2024-09-22] MEDS: Cholecalciferol (Vitamin D3) 25 MCG TABLET PO (09:36)
[2024-09-22] MEDS: Multivitamin TABLET 1 TAB PO (09:36)
[2024-09-22] MEDS: HaloperidoL 5 MG TABLET PO ×3 (09:36→21:23)
[2024-09-22] MEDS: Loratadine 10 MG TABLET PO (09:36)
[2024-09-22] MEDS: Calcium + Vitamin D 250 MG TABLET 500 MG PO ×2 (09:37→21:24)
[2024-09-22] MEDS: Benztropine Mesylate 0.5 MG TABLET PO ×2 (09:37→21:24)
[2024-09-22] MEDS: cloNIDine HCL 0.1 MG TABLET PO ×3 (09:37→21:23)
[2024-09-22] MEDS: Fluticasone/Vilanterol 200/25 BLST.W.DEV 1 PUFF INHALE (09:48)
[2024-09-22] MEDS: polyethylene glycoL 3350 17 GM POWD.PACK PO ×2 (09:57→21:21)
[2024-09-22] MEDS: LORazepam 1 MG TABLET PO ×2 (11:50→21:23)
--- NOTE | 2024-09-22 20:37 | HO.PSYCHPN ---
Subjective Subjective Date of Service: 09/22/24 Reason For Visit: SI Interim History: Met with patient; discussed with team Patient had ECT today and feels that it was helpful; no side effects Had team meeting with patient and outpatient team and resources were discussed including getting a consistent outpatient therapist that could be available even if patient ends up coming to the hospital and missing appointments. Mental Status Exam Mental Status Exam Narrative: Pt is alert and oriented; behavior is cooperative, relatively calm; dressed in casual attire gown with adequate hygiene and grooming; numerous of scars up and down bilateral forearms from hx of superficial cutting; mood is described as a little better but still anxious; affect congruent, a little more calm, not so downcast; eye contact appropriate; Speech is normal volume and rate and prosody; some psychomotor retardation present; thought process is goal directed; Thought content is on struggles with dealing with symptoms; otherwise pertinent to relevant topics and without any delusional content, paranoid ideations or grandiosity; +intermittent SI; no HI. intermittent AH; Patients insight and judgment are impaired but perhaps improving. Diagnostics Vital Signs (24Hr): Vital Signs - 24 hr 09/22/24 07:02 09/22/24 08:02 09/22/24 08:07 Temperature 97.6 F 97.6 F Pulse Rate 85 105 H 95 Respiratory Rate 20 24 H 14 Blood Pressure 112/81 143/91 H 124/74 Pulse Oximetry 98 94 95 Oxygen Delivery Method Room Air Room Air Room Air 09/22/24 08:12 09/22/24 08:27 09/22/24 09:40 Temperature 97.4 F 98 F Pulse Rate 109 H 92 88 Respiratory Rate 18 18 18 Blood Pressure 127/80 124/69 119/73 Pulse Oximetry 95 97 99 Oxygen Delivery Method Room Air Room Air Room Air 09/22/24 15:05 09/22/24 19:45 Temperature 98.3 F Pulse Rate 76 Respiratory Rate 18 Blood Pressure 123/62 105/71 Pulse Oximetry 99 Oxygen Delivery Method Room Air BMI result Body Mass Index 36.6 Labs 09/18/24 16:02 09/18/24 20:35 Medications Medications Current Medications Acetaminophen (Acetaminophen 325 Mg Tablet) 650 mg PO Q6H PRN PRN Reason: Headache/Pain Mild Scale (1-3) Last Admin: 09/21/24 20:18 Dose: 650 mg Al Hydroxide/Mg Hydroxide (Magnesium Hydrox/Alum Hydrox 30 Ml Oral.Susp) 30 ml PO Q6H PRN PRN Reason: Heartburn/Nausea Last Admin: 09/19/24 18:15 Dose: 30 ml Albuterol Sulfate (Albuterol Sulfate 90 Mcg 8 Gm Inhaler) 2 puff INHALE Q6H PRN PRN Reason: shortness of breath or wheezing Benztropine Mesylate (Benztropine Mesylate 0.5 Mg Tablet) 0.5 mg PO BID [facility] Last Admin: 09/22/24 09:37 Dose: 0.5 mg Calcium Carbonate/Cholecalciferol (Calcium + Vitamin D 250 Mg Tablet) 500 mg PO BID [facility] Last Admin: 09/22/24 09:37 Dose: 500 mg Clonidine HCl (Clonidine Hcl 0.1 Mg Tablet) 0.1 mg PO TID [facility]; Protocol Last Admin: 09/22/24 15:05 Dose: 0.1 mg Diphenhydramine HCl (Diphenhydramine Hcl 25 Mg Capsule) 100 mg PO BEDTIME [facility] Last Admin: 09/21/24 20:15 Dose: 100 mg Diphenhydramine HCl (Diphenhydramine Hcl 25 Mg Capsule) 25 mg PO Q4H PRN PRN Reason: itchiness Last Admin: 09/21/24 16:51 Dose: 25 mg Duloxetine HCl (Duloxetine Hcl 30 Mg Capsule.Dr) 90 mg PO DAILY [facility] Last Admin: 09/22/24 09:36 Dose: 90 mg Fluticasone Propionate (Fluticasone Propionate Nasal 16 Gm [place]) 2 spray NOSTRIL-B DAILY [facility] Last Admin: 09/22/24 09:48 Dose: Not Given Fluticasone/Vilanterol (Fluticasone/Vilanterol 200/25 Blst.W.Dev) 1 puff INHALE RDAILY [facility] Last Admin: 09/22/24 09:48 Dose: 1 puff Haloperidol (Haloperidol 5 Mg Tablet) 5 mg PO TID [facility] Last Admin: 09/22/24 15:05 Dose: 5 mg Haloperidol Decanoate (Haloperidol Decanoate 50 Mg/Ml Vial) 75 mg IM Q28D [facility] Hydroxyzine HCl (Hydroxyzine Hcl 25 Mg Tablet) 25 mg PO Q6H PRN PRN Reason: Anxiety Last Admin: 09/21/24 20:18 Dose: 25 mg Lactated Ringer's (Lr) 1,000 mls @ 50 mls/hr IVCONT .Q20H [facility] Last Infusion: 09/22/24 08:38 Dose: Infused Ibuprofen (Ibuprofen 600 Mg Tablet) 600 mg PO Q8H PRN PRN Reason: Pain, Mild FOOT PAIN Last Admin: 09/19/24 11:39 Dose: 600 mg [place] Carbonate ([place] Carbonate 300 Mg Capsule) 300 mg PO BID [facility] Last Admin: 09/21/24 09:07 Dose: 300 mg Loratadine (Loratadine 10 Mg Tablet) 10 mg PO DAILY [facility] Last Admin: 09/22/24 09:36 Dose: 10 mg Lorazepam (Lorazepam 1 Mg Tablet) 1 mg PO TID PRN PRN Reason: anxiety/agitation Last Admin: 09/21/24 18:10 Dose: 1 mg Magnesium Hydroxide (Milk Of Magnesia 30 Ml Oral.Susp) 30 ml PO DAILY PRN PRN Reason: Constipation Multivitamins/Vitamin C (Multivitamin Tablet) 1 tab PO DAILY [facility] Last Admin: 09/22/24 09:36 Dose: 1 tab Naloxone HCl (Naloxone Hcl 0.4 Mg/Ml Vial) 0.04 mg IVPUSH Q5M PRN PRN Reason: Excessive sedation or RR < 8 Nicotine Polacrilex (Nicotine Polacrilex 2 Mg Gum) 2 mg BUCCAL Q2H PRN PRN Reason: Cravings Omeprazole (Omeprazole 20 Mg Capsule.Dr) 20 mg PO Q48H [facility] Last Admin: 09/21/24 09:07 Dose: 20 mg Ondansetron HCl (Ondansetron Odt 4 Mg Tab.Rapdis) 4 mg TRANSLINGU Q6H PRN PRN Reason: Nausea and Vomiting Last Admin: 09/19/24 09:46 Dose: 4 mg Polyethylene Glycol (Polyethylene Glycol 3350 17 Gm Powd.Pack) 17 gm PO TID [facility] Last Admin: 09/22/24 16:31 Dose: Not Given Prazosin HCl (Prazosin Hcl 1 Mg Capsule) 1 mg PO BEDTIME [facility]; Protocol Last Admin: 09/21/24 20:15 Dose: 1 mg Prazosin HCl (Prazosin Hcl 5 Mg Capsule) 15 mg PO BEDTIME [facility]; Protocol Last Admin: 09/21/24 20:16 Dose: 15 mg Trazodone HCl (Trazodone Hcl 100 Mg Tablet) 200 mg PO BEDTIME [facility] Last Admin: 09/21/24 20:16 Dose: 200 mg Vitamin D (Cholecalciferol (Vitamin D3) 25 Mcg Tablet) 25 mcg PO DAILY [facility] Last Admin: 09/22/24 09:36 Dose: 25 mcg Zolpidem Tartrate (Zolpidem Tartrate 5 Mg Tablet) 10 mg PO BEDTIME [facility] Last Admin: 09/21/24 19:47 Dose: Not Given Allergies Allergies Allergy/AdvReac Type Severity Reaction Status Date / Time carbamazepine [From TEGRETOL] AdvReac Mild Nausea and Verified 09/18/24 15:29 Vomiting topiramate [From Topamax] AdvReac Mild Nausea and Verified 09/18/24 15:29 Vomiting Assessment & Plan Assessment & Plan (1) Chronic post-traumatic stress disorder (PTSD): Status: Chronic Code(s): F43.12 - Post-traumatic stress disorder, chronic (2) Borderline personality disorder: Status: Chronic Code(s): F60.3 - Borderline personality disorder (3) MDD (major depressive disorder), recurrent, severe, with psychosis: Status: Acute Code(s): F33.3 - Major depressive disorder, recurrent, severe with psychotic symptoms Plan Pt is a 39 y.o. female, with hx of PTSD (extensive trauma history), and BPD, (she carries a dx of schizoaffective DO, depressive type),chronic SI, chronic self-harming urges/ behaviors, COPD/asthma and multiple inpatient admissions/ED visits who presents for overwhelming anxiety and self-harming urges in face of recent loss of father. Currently she is having strong urges to self harm and asks for 1:1 to help her stay safe. She reports AH of voices saying to harm herself (However these are mood congruent and resolve when she's no longer feeling stressed/anxious/depressed). Pt wanted to discuss medication management wondering if adjustments could help her stay out of the hospital more, but concluded that therapy is the missing component to her treatment. Hospital course: 2/5 remains with urges to self-harm though has kept herself from it; AH to harm herself though she agrees it is mood congruent. Patient wants ECT to be twice a week however race and sports book writer discussed that currently this is not indicated and that therapy is more likely the needed treatment 2/6 continue treatment plan; ECT tomorrow -discussed case with Dr. Silva who agrees that patient will more likely benefit from consistent outpatient therapy then increasing ECT scheduled 09/22 ECT day; meeting with outpatient team discussing treatment and plan to help patient cope with struggles in the community -discussed treatment with Dr. Silva who agrees with holding ECT on Wednesday and monitoring patient for chronic depression Plan: CV One-to-one Increased Cymbalta to 90 mg Continue home medications Scheduling meeting with outpatient team ECT scheduled for Wednesday Patient educated on: diagnosis, medication risk/benefits, ECT and therapeutic strategies Informed Consent: understands Reason for continued inpatient stay Substantial Risk for: rapid decompensation Time Spent With Patient Time: Total time managing care of this patient today ____ minutes.
[2024-09-22] MEDS: Zolpidem Tartrate 5 MG TABLET 10 MG PO (21:22)
[2024-09-22] MEDS: diphenhydrAMINE HCL 25 MG CAPSULE 100 MG PO (21:23)
[2024-09-22] MEDS: traZODone HCL 100 MG TABLET 200 MG PO (21:23)
[2024-09-22] MEDS: Prazosin HCL 5 MG CAPSULE 15 MG PO (21:24)
[2024-09-22] MEDS: Prazosin HCL 1 MG CAPSULE PO (21:24)
[2024-09-23] MEDS: Omeprazole 20 MG CAPSULE.DR PO (08:09)
[2024-09-23] MEDS: DULoxetine HCl 30 MG CAPSULE.DR 90 MG PO (08:10)
[2024-09-23] MEDS: polyethylene glycoL 3350 17 GM POWD.PACK PO ×3 (08:10→20:20)
[2024-09-23] MEDS: Multivitamin TABLET 1 TAB PO (08:10)
[2024-09-23 08:11] VITALS: BP 112/62; PULSE 87; TEMP 36.4; O2SAT 96
[2024-09-23] MEDS: Benztropine Mesylate 0.5 MG TABLET PO ×2 (08:11→20:19)
[2024-09-23] MEDS: HaloperidoL 5 MG TABLET PO ×3 (08:11→21:05)
[2024-09-23] MEDS: Calcium + Vitamin D 250 MG TABLET 500 MG PO ×2 (08:11→20:17)
[2024-09-23] MEDS: Cholecalciferol (Vitamin D3) 25 MCG TABLET PO (08:11)
[2024-09-23] MEDS: Loratadine 10 MG TABLET PO (08:11)
[2024-09-23] MEDS: cloNIDine HCL 0.1 MG TABLET PO ×3 (08:11→20:16)
[2024-09-23] MEDS: Fluticasone/Vilanterol 200/25 BLST.W.DEV 1 PUFF INHALE (08:12)
--- NOTE | 2024-09-23 08:13 | HO.PSYCHPN ---
Subjective Subjective Date of Service: 09/23/24 Reason For Visit: SI Interim History: Met with patient; discussed with team. Thankful to be in the hospital. Still having thoughts of self-harm and feeling supported with staff on one-to-one observation. Discussed ECT treatments and records shows holding off on Wednesday, so team can re-evaluate patient after yesterday's ECT to determine efficacy and frequency. Otherwise support provided around significant recent losses. Long-acting injectable Haldol to be given today. Review of Systems Review of Systems Unremarkable Mental Status Exam Mental Status Exam Narrative: Pt is alert and oriented; behavior is cooperative, relatively calm; dressed in casual attire gown with adequate hygiene and grooming; numerous of scars up and down bilateral forearms from hx of superficial cutting; mood is described as a little better but still anxious; affect congruent, a little more calm, not so downcast; eye contact appropriate; Speech is normal volume and rate and prosody; some psychomotor retardation present; thought process is goal directed; Thought content is on struggles with dealing with symptoms; otherwise pertinent to relevant topics and without any delusional content, paranoid ideations or grandiosity; +intermittent SI; no HI. intermittent AH; Patients insight and judgment are impaired but perhaps improving. Diagnostics Vital Signs (24Hr): Vital Signs - 24 hr 09/22/24 08:27 09/22/24 09:40 09/22/24 15:05 Temperature 97.4 F 98 F Pulse Rate 92 88 Respiratory Rate 18 18 Blood Pressure 124/69 119/73 123/62 Pulse Oximetry 97 99 Oxygen Delivery Method Room Air Room Air 09/22/24 19:45 Temperature 98.3 F Pulse Rate 76 Respiratory Rate 18 Blood Pressure 105/71 Pulse Oximetry 99 Oxygen Delivery Method Room Air BMI result Body Mass Index 36.6 Labs 09/18/24 16:02 09/18/24 20:35 Medications Medications Current Medications Acetaminophen (Acetaminophen 325 Mg Tablet) 650 mg PO Q6H PRN PRN Reason: Headache/Pain Mild Scale (1-3) Last Admin: 09/21/24 20:18 Dose: 650 mg Al Hydroxide/Mg Hydroxide (Magnesium Hydrox/Alum Hydrox 30 Ml Oral.Susp) 30 ml PO Q6H PRN PRN Reason: Heartburn/Nausea Last Admin: 09/19/24 18:15 Dose: 30 ml Albuterol Sulfate (Albuterol Sulfate 90 Mcg 8 Gm Inhaler) 2 puff INHALE Q6H PRN PRN Reason: shortness of breath or wheezing Benztropine Mesylate (Benztropine Mesylate 0.5 Mg Tablet) 0.5 mg PO BID [facility] Last Admin: 09/22/24 21:24 Dose: 0.5 mg Calcium Carbonate/Cholecalciferol (Calcium + Vitamin D 250 Mg Tablet) 500 mg PO BID [facility] Last Admin: 09/22/24 21:24 Dose: 500 mg Clonidine HCl (Clonidine Hcl 0.1 Mg Tablet) 0.1 mg PO TID [facility]; Protocol Last Admin: 09/22/24 21:23 Dose: 0.1 mg Diphenhydramine HCl (Diphenhydramine Hcl 25 Mg Capsule) 100 mg PO BEDTIME [facility] Last Admin: 09/22/24 21:23 Dose: 100 mg Diphenhydramine HCl (Diphenhydramine Hcl 25 Mg Capsule) 25 mg PO Q4H PRN PRN Reason: itchiness Last Admin: 09/21/24 16:51 Dose: 25 mg Duloxetine HCl (Duloxetine Hcl 30 Mg Capsule.Dr) 90 mg PO DAILY [facility] Last Admin: 09/22/24 09:36 Dose: 90 mg Fluticasone Propionate (Fluticasone Propionate Nasal 16 Gm [place]) 2 spray NOSTRIL-B DAILY [facility] Last Admin: 09/22/24 09:48 Dose: Not Given Fluticasone/Vilanterol (Fluticasone/Vilanterol 200/25 Blst.W.Dev) 1 puff INHALE RDAILY [facility] Last Admin: 09/22/24 09:48 Dose: 1 puff Haloperidol (Haloperidol 5 Mg Tablet) 5 mg PO TID [facility] Last Admin: 09/22/24 21:23 Dose: 5 mg Haloperidol Decanoate (Haloperidol Decanoate 50 Mg/Ml Vial) 75 mg IM Q28D [facility] Hydroxyzine HCl (Hydroxyzine Hcl 25 Mg Tablet) 25 mg PO Q6H PRN PRN Reason: Anxiety Last Admin: 09/21/24 20:18 Dose: 25 mg Lactated Ringer's (Lr) 1,000 mls @ 50 mls/hr IVCONT .Q20H [facility] Last Admin: 09/23/24 05:26 Dose: Not Given Ibuprofen (Ibuprofen 600 Mg Tablet) 600 mg PO Q8H PRN PRN Reason: Pain, Mild FOOT PAIN Last Admin: 09/19/24 11:39 Dose: 600 mg [place] Carbonate ([place] Carbonate 300 Mg Capsule) 300 mg PO BID [facility] Last Admin: 09/21/24 09:07 Dose: 300 mg Loratadine (Loratadine 10 Mg Tablet) 10 mg PO DAILY [facility] Last Admin: 09/22/24 09:36 Dose: 10 mg Lorazepam (Lorazepam 1 Mg Tablet) 1 mg PO TID PRN PRN Reason: anxiety/agitation Last Admin: 09/22/24 21:23 Dose: 1 mg Magnesium Hydroxide (Milk Of Magnesia 30 Ml Oral.Susp) 30 ml PO DAILY PRN PRN Reason: Constipation Multivitamins/Vitamin C (Multivitamin Tablet) 1 tab PO DAILY [facility] Last Admin: 09/22/24 09:36 Dose: 1 tab Naloxone HCl (Naloxone Hcl 0.4 Mg/Ml Vial) 0.04 mg IVPUSH Q5M PRN PRN Reason: Excessive sedation or RR < 8 Nicotine Polacrilex (Nicotine Polacrilex 2 Mg Gum) 2 mg BUCCAL Q2H PRN PRN Reason: Cravings Omeprazole (Omeprazole 20 Mg Capsule.Dr) 20 mg PO Q48H [facility] Last Admin: 09/21/24 09:07 Dose: 20 mg Ondansetron HCl (Ondansetron Odt 4 Mg Tab.Rapdis) 4 mg TRANSLINGU Q6H PRN PRN Reason: Nausea and Vomiting Last Admin: 09/19/24 09:46 Dose: 4 mg Polyethylene Glycol (Polyethylene Glycol 3350 17 Gm Powd.Pack) 17 gm PO TID [facility] Last Admin: 09/22/24 21:21 Dose: 17 gm Prazosin HCl (Prazosin Hcl 1 Mg Capsule) 1 mg PO BEDTIME [facility]; Protocol Last Admin: 09/22/24 21:24 Dose: 1 mg Prazosin HCl (Prazosin Hcl 5 Mg Capsule) 15 mg PO BEDTIME [facility]; Protocol Last Admin: 09/22/24 21:24 Dose: 15 mg Trazodone HCl (Trazodone Hcl 100 Mg Tablet) 200 mg PO BEDTIME [facility] Last Admin: 09/22/24 21:23 Dose: 200 mg Vitamin D (Cholecalciferol (Vitamin D3) 25 Mcg Tablet) 25 mcg PO DAILY [facility] Last Admin: 09/22/24 09:36 Dose: 25 mcg Zolpidem Tartrate (Zolpidem Tartrate 5 Mg Tablet) 10 mg PO BEDTIME [facility] Last Admin: 09/22/24 21:22 Dose: 10 mg Allergies Allergies Allergy/AdvReac Type Severity Reaction Status Date / Time carbamazepine [From TEGRETOL] AdvReac Mild Nausea and Verified 09/18/24 15:29 Vomiting topiramate [From Topamax] AdvReac Mild Nausea and Verified 09/18/24 15:29 Vomiting Assessment & Plan Assessment & Plan (1) Chronic post-traumatic stress disorder (PTSD): Status: Chronic Code(s): F43.12 - Post-traumatic stress disorder, chronic (2) Borderline personality disorder: Status: Chronic Code(s): F60.3 - Borderline personality disorder (3) MDD (major depressive disorder), recurrent, severe, with psychosis: Status: Acute Code(s): F33.3 - Major depressive disorder, recurrent, severe with psychotic symptoms Plan Pt is a 39 y.o. female, with hx of PTSD (extensive trauma history), and BPD, (she carries a dx of schizoaffective DO, depressive type),chronic SI, chronic self-harming urges/ behaviors, COPD/asthma and multiple inpatient admissions/ED visits who presents for overwhelming anxiety and self-harming urges in face of recent loss of father. Currently she is having strong urges to self harm and asks for 1:1 to help her stay safe. She reports AH of voices saying to harm herself (However these are mood congruent and resolve when she's no longer feeling stressed/anxious/depressed). Pt wanted to discuss medication management wondering if adjustments could help her stay out of the hospital more, but concluded that therapy is the missing component to her treatment. Hospital course: 09/20 remains with urges to self-harm though has kept herself from it; AH to harm herself though she agrees it is mood congruent. Patient wants ECT to be twice a week however functional tester typewriters discussed that currently this is not indicated and that therapy is more likely the needed treatment 09/21 continue treatment plan; ECT tomorrow -discussed case with Dr. Silva who agrees that patient will more likely benefit from consistent outpatient therapy then increasing ECT scheduled 09/22 had ECT day; meeting with outpatient team discussing treatment and plan to help patient cope with struggles in the community -discussed treatment with Dr. Silva who agrees with holding ECT on Wednesday and monitoring patient for chronic depression 09/23: Discussed ECT treatments and records shows holding off on Wednesday, so team can re-evaluate patient after yesterday's ECT to determine efficacy and frequency. Long-acting injectable Haldol to be given today. Plan: CV One-to-one Increased Cymbalta to 90 mg Continue home medications Scheduling meeting with outpatient team ECT scheduled for Wednesday Reason for continued inpatient stay Substantial Risk for: harm to self Time Spent With Patient Time: Total time managing care of this patient today ____ minutes.
[2024-09-23] MEDS: Milk of Magnesia 30 ML ORAL.SUSP PO (09:50)
[2024-09-23] MEDS: Fluticasone Propionate Nasal 16 GM SPRAY 2 SPRAY NOSTRIL-B (11:14)
[2024-09-23] MEDS: Haloperidol Decanoate 50 MG/ML VIAL 75 MG IM (11:39)
[2024-09-23] MEDS: Acetaminophen 325 MG TABLET 650 MG PO (14:01)
[2024-09-23] MEDS: LORazepam 1 MG TABLET PO ×3 (14:22→21:06)
[2024-09-23 15:08] VITALS: BP 119/69
[2024-09-23 19:33] VITALS: BP 130/64; PULSE 85; RESP 18; TEMP 36.9; O2SAT 98
[2024-09-23] MEDS: Prazosin HCL 1 MG CAPSULE PO (20:16)
[2024-09-23] MEDS: Prazosin HCL 5 MG CAPSULE 15 MG PO (20:16)
[2024-09-23] MEDS: Zolpidem Tartrate 5 MG TABLET 10 MG PO (20:17)
[2024-09-23] MEDS: diphenhydrAMINE HCL 25 MG CAPSULE 100 MG PO (20:17)
[2024-09-23] MEDS: traZODone HCL 100 MG TABLET 200 MG PO (20:17)
[2024-09-24] MEDS: Fluticasone Propionate Nasal 16 GM SPRAY 2 SPRAY NOSTRIL-B (09:25)
[2024-09-24] MEDS: cloNIDine HCL 0.1 MG TABLET PO ×3 (09:25→20:26)
[2024-09-24] MEDS: Calcium + Vitamin D 250 MG TABLET 500 MG PO ×2 (09:25→20:28)
[2024-09-24] MEDS: Fluticasone/Vilanterol 200/25 BLST.W.DEV 1 PUFF INHALE (09:25)
[2024-09-24] MEDS: Cholecalciferol (Vitamin D3) 25 MCG TABLET PO (09:26)
[2024-09-24] MEDS: Benztropine Mesylate 0.5 MG TABLET PO ×2 (09:26→20:28)
[2024-09-24] MEDS: Loratadine 10 MG TABLET PO (09:26)
[2024-09-24] MEDS: DULoxetine HCl 30 MG CAPSULE.DR 90 MG PO (09:26)
[2024-09-24] MEDS: Multivitamin TABLET 1 TAB PO (09:26)
[2024-09-24] MEDS: HaloperidoL 5 MG TABLET PO ×3 (09:26→20:26)
[2024-09-24 09:35] VITALS: BP 128/63; PULSE 84; RESP 18; TEMP 36.4; O2SAT 97
[2024-09-24] MEDS: hydrOXYzine HCL 25 MG TABLET PO ×2 (10:52→18:57)
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
[2024-09-24] MEDS: Nicotine Polacrilex 2 MG GUM BUCCAL (12:44)
[2024-09-24 14:01] VITALS: BP 140/58
[2024-09-24] MEDS: Acetaminophen 325 MG TABLET 650 MG PO (14:14)
[2024-09-24] MEDS: LORazepam 1 MG TABLET PO (16:40)
[2024-09-24 20:00] VITALS: BP 102/61; PULSE 99; RESP 16; TEMP 36.4; O2SAT 98
[2024-09-24] MEDS: LORazepam 2 MG/ML VIAL 1 MG IM (20:24)
[2024-09-24 20:26] VITALS: BP 102/61
[2024-09-24] MEDS: traZODone HCL 100 MG TABLET 200 MG PO (20:26)
[2024-09-24 20:27] VITALS: BP 102/61
[2024-09-24] MEDS: Prazosin HCL 1 MG CAPSULE PO (20:27)
[2024-09-24 20:28] VITALS: BP 102/61
[2024-09-24] MEDS: Zolpidem Tartrate 5 MG TABLET 10 MG PO (20:28)
[2024-09-24] MEDS: diphenhydrAMINE HCL 25 MG CAPSULE 100 MG PO (20:28)
[2024-09-24] MEDS: Prazosin HCL 5 MG CAPSULE 15 MG PO (20:28)
[2024-09-25] MEDS: Ibuprofen 600 MG TABLET PO (03:28)
[2024-09-25] MEDS: hydrOXYzine HCL 25 MG TABLET PO (03:28)
[2024-09-25 08:02] VITALS: BP 119/64; PULSE 78; RESP 16; TEMP 36.7; O2SAT 95
[2024-09-25] MEDS: Multivitamin TABLET 1 TAB PO (08:16)
[2024-09-25] MEDS: Calcium + Vitamin D 250 MG TABLET 500 MG PO ×2 (08:16→20:00)
[2024-09-25] MEDS: DULoxetine HCl 30 MG CAPSULE.DR 90 MG PO (08:16)
[2024-09-25] MEDS: Omeprazole 20 MG CAPSULE.DR PO (08:16)
[2024-09-25] MEDS: Cholecalciferol (Vitamin D3) 25 MCG TABLET PO (08:17)
[2024-09-25] MEDS: Loratadine 10 MG TABLET PO (08:17)
[2024-09-25] MEDS: HaloperidoL 5 MG TABLET PO ×3 (08:17→20:01)
[2024-09-25] MEDS: Benztropine Mesylate 0.5 MG TABLET PO ×2 (08:17→20:00)
[2024-09-25] MEDS: cloNIDine HCL 0.1 MG TABLET PO ×3 (08:17→20:00)
[2024-09-25] MEDS: Fluticasone Propionate Nasal 16 GM SPRAY 2 SPRAY NOSTRIL-B (08:21)
[2024-09-25] MEDS: Fluticasone/Vilanterol 200/25 BLST.W.DEV 1 PUFF INHALE (08:21)
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
[2024-09-25 14:02] VITALS: BP 117/73
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
[2024-09-25] MEDS: LORazepam 2 MG/ML VIAL IM (14:43)
[2024-09-25] MEDS: Lithium Carbonate 300 MG CAPSULE PO ×2 (18:47→20:00)
[2024-09-25] MEDS: LORazepam 1 MG TABLET PO (19:24)
[2024-09-25 20:00] VITALS: BP 118/80; PULSE 83; TEMP 36.8; O2SAT 97
[2024-09-25] MEDS: Prazosin HCL 5 MG CAPSULE 15 MG PO (20:00)
[2024-09-25 20:01] VITALS: BP 118/80
[2024-09-25] MEDS: Zolpidem Tartrate 5 MG TABLET 10 MG PO (20:01)
[2024-09-25] MEDS: diphenhydrAMINE HCL 25 MG CAPSULE 100 MG PO (20:01)
[2024-09-25] MEDS: traZODone HCL 100 MG TABLET 200 MG PO (20:01)
[2024-09-25] MEDS: Prazosin HCL 1 MG CAPSULE PO (20:01)
[2024-09-26 08:52] VITALS: BP 117/65; PULSE 71; TEMP 36.6; O2SAT 95
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
[2024-09-26] MEDS: DULoxetine HCl 30 MG CAPSULE.DR 90 MG PO (09:51)
[2024-09-26] MEDS: polyethylene glycoL 3350 17 GM POWD.PACK PO (09:51)
[2024-09-26] MEDS: Loratadine 10 MG TABLET PO (09:51)
[2024-09-26] MEDS: Benztropine Mesylate 0.5 MG TABLET PO ×2 (09:51→20:11)
[2024-09-26] MEDS: Multivitamin TABLET 1 TAB PO (09:51)
[2024-09-26] MEDS: HaloperidoL 5 MG TABLET PO ×3 (09:51→20:11)
[2024-09-26] MEDS: Cholecalciferol (Vitamin D3) 25 MCG TABLET PO (09:52)
[2024-09-26] MEDS: Calcium + Vitamin D 250 MG TABLET 500 MG PO ×2 (09:52→20:11)
[2024-09-26] MEDS: cloNIDine HCL 0.1 MG TABLET PO ×3 (09:52→20:10)
[2024-09-26] MEDS: Lithium Carbonate 300 MG CAPSULE PO ×2 (09:53→20:11)
[2024-09-26] MEDS: Fluticasone Propionate Nasal 16 GM SPRAY 2 SPRAY NOSTRIL-B (09:54)
[2024-09-26] MEDS: Fluticasone/Vilanterol 200/25 BLST.W.DEV 1 PUFF INHALE (09:54)
[2024-09-26] MEDS: LORazepam 1 MG TABLET PO ×3 (10:44→21:07)
[2024-09-26 14:02] VITALS: BP 140/74
[2024-09-26] MEDS: hydrOXYzine HCL 50 MG TABLET PO (14:02)
[2024-09-26] MEDS: Haloperidol Lactate 5 MG/ML VIAL 2 MG IM (14:58)
[2024-09-26] MEDS: LORazepam 2 MG/ML VIAL IM (14:58)
[2024-09-26 20:00] VITALS: BP 114/54; PULSE 88; TEMP 36.5; O2SAT 96
[2024-09-26 20:09] VITALS: BP 114/54
[2024-09-26] MEDS: Prazosin HCL 5 MG CAPSULE 15 MG PO (20:09)
[2024-09-26] MEDS: diphenhydrAMINE HCL 25 MG CAPSULE 100 MG PO (20:09)
[2024-09-26 20:10] VITALS: BP 114/54; BP 115/54
[2024-09-26] MEDS: Prazosin HCL 1 MG CAPSULE PO (20:10)
[2024-09-26] MEDS: Zolpidem Tartrate 5 MG TABLET 10 MG PO (20:10)
[2024-09-26] MEDS: traZODone HCL 100 MG TABLET 200 MG PO (20:10)
[2024-09-27] MEDS: hydrOXYzine HCL 50 MG TABLET PO ×2 (00:01→22:25)
[2024-09-27] MEDS: Omeprazole 20 MG CAPSULE.DR PO (07:04)
[2024-09-27] MEDS: Fluticasone/Vilanterol 200/25 BLST.W.DEV 1 PUFF INHALE (08:58)
[2024-09-27] MEDS: Fluticasone Propionate Nasal 16 GM SPRAY 2 SPRAY NOSTRIL-B (08:58)
[2024-09-27] MEDS: DULoxetine HCl 30 MG CAPSULE.DR 90 MG PO (08:58)
[2024-09-27] MEDS: Cholecalciferol (Vitamin D3) 25 MCG TABLET PO (08:59)
[2024-09-27] MEDS: Lithium Carbonate 300 MG CAPSULE PO ×2 (08:59→21:10)
[2024-09-27] MEDS: HaloperidoL 5 MG TABLET PO ×3 (08:59→21:10)
[2024-09-27] MEDS: Calcium + Vitamin D 250 MG TABLET 500 MG PO ×2 (08:59→21:09)
[2024-09-27] MEDS: Loratadine 10 MG TABLET PO (08:59)
[2024-09-27] MEDS: Multivitamin TABLET 1 TAB PO (08:59)
[2024-09-27] MEDS: Benztropine Mesylate 0.5 MG TABLET PO ×2 (08:59→21:10)
[2024-09-27 11:35] VITALS: BP 116/68; PULSE 95; RESP 18; TEMP 36.9; O2SAT 98
[2024-09-27] MEDS: cloNIDine HCL 0.1 MG TABLET PO ×3 (11:38→21:10)
[2024-09-27] MEDS: LORazepam 2 MG/ML VIAL IM ×2 (12:10→22:46)
[2024-09-27] MEDS: Haloperidol Lactate 5 MG/ML VIAL 2 MG IM ×2 (12:12→22:46)
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
[2024-09-27 14:23] VITALS: BP 106/58
[2024-09-27 15:04] LABS: Appearance Urine Clear; Color Urine Yellow; Glucose Urine UA Negative (Negative); Leukocyte Esterase Urine Negative (Negative); Nitrite Urine Negative (Negative); Specific Gravity - Urine <= 1.005 (1.005-1.025); Urine Blood Negative (Negative); Urine Ketones Negative (Negative); Urine Protein Negative (Neg-Trace)
[2024-09-27 15:06] LABS: Bacteria Urine None Seen (None Seen); Hyaline Casts Urine 0-2 /LPF (0-2); RBC Urine 0-2 /HPF (0-2); Squamous Epithelial Cell Urine 0-2 /HPF (0-2); WBC Urine 0-5 /HPF (0-5)
[2024-09-27] MEDS: LORazepam 1 MG TABLET PO (19:06)
[2024-09-27 19:54] VITALS: BP 110/71; PULSE 76; TEMP 36.7; O2SAT 98
[2024-09-27] MEDS: Prazosin HCL 5 MG CAPSULE 15 MG PO (21:07)
[2024-09-27] MEDS: Prazosin HCL 1 MG CAPSULE PO (21:08)
[2024-09-27] MEDS: traZODone HCL 100 MG TABLET 200 MG PO (21:09)
[2024-09-27] MEDS: diphenhydrAMINE HCL 25 MG CAPSULE 100 MG PO (21:09)
[2024-09-27] MEDS: Zolpidem Tartrate 5 MG TABLET 10 MG PO (21:10)
--- NOTE | 2024-09-27 22:55 | PC.NURSE ---
Patient c/o of increasing anxiety. Provider notified. 2mg Lorazepam/2mg Haldol IM ordered. Administered R deltoid at [id number]. Will continue to monitor for effect.
[2024-09-28 08:00] VITALS: BP 115/61; PULSE 79; RESP 14; TEMP 36.8; O2SAT 96
[2024-09-28] MEDS: Multivitamin TABLET 1 TAB PO (10:56)
[2024-09-28] MEDS: Calcium + Vitamin D 250 MG TABLET 500 MG PO ×2 (10:56→21:07)
[2024-09-28] MEDS: DULoxetine HCl 30 MG CAPSULE.DR 90 MG PO (10:56)
[2024-09-28] MEDS: Loratadine 10 MG TABLET PO (10:56)
[2024-09-28] MEDS: Cholecalciferol (Vitamin D3) 25 MCG TABLET PO (10:56)
[2024-09-28] MEDS: HaloperidoL 5 MG TABLET PO ×3 (10:56→21:09)
[2024-09-28] MEDS: Benztropine Mesylate 0.5 MG TABLET PO ×2 (10:56→21:09)
[2024-09-28] MEDS: cloNIDine HCL 0.1 MG TABLET PO ×3 (10:56→21:07)
[2024-09-28] MEDS: Fluticasone/Vilanterol 200/25 BLST.W.DEV 1 PUFF INHALE (10:57)
[2024-09-28] MEDS: Fluticasone Propionate Nasal 16 GM SPRAY 2 SPRAY NOSTRIL-B (10:57)
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
[2024-09-28] MEDS: hydrOXYzine HCL 50 MG TABLET PO ×2 (12:56→18:18)
[2024-09-28 14:00] VITALS: BP 90/60
[2024-09-28] MEDS: Haloperidol Lactate 5 MG/ML VIAL 2 MG IM (18:49)
[2024-09-28 20:00] VITALS: BP 130/83; PULSE 95; TEMP 36.6; O2SAT 97
[2024-09-28] MEDS: Prazosin HCL 5 MG CAPSULE 15 MG PO (21:08)
[2024-09-28] MEDS: traZODone HCL 100 MG TABLET 200 MG PO (21:08)
[2024-09-28] MEDS: Zolpidem Tartrate 5 MG TABLET 10 MG PO (21:09)
[2024-09-28] MEDS: Prazosin HCL 1 MG CAPSULE PO (21:13)
[2024-09-28] MEDS: diphenhydrAMINE HCL 25 MG CAPSULE 100 MG PO (21:47)
[2024-09-29] VITALS (11 sets, daily range): BP systolic 119–145; BP diastolic 66–102; PULSE 78–123; RESP 16–20; TEMP 36.1–37.1; O2SAT 96–98
--- NOTE | 2024-09-29 07:05 | MHC.SHP ---
Pre-Procedural Eval Section A - 24 Hr Update-Section A only Date of Service: 09/29/24 The patient is an INPATIENT: Yes Changes since office visit: Yes Patient answered all questions; No Cold of Flu in the past 2 weeks, No New Medical Problems and No Changes in Medication The patient has been examined within 24 hours of the surgical procedure. The History & Physical has been completed within 30 days and I have reviewed it.: Yes Section B - Complete if H&P > 30 days Chief Complaint: SI Allergies: Allergies Allergy/AdvReac Type Severity Reaction Status Date / Time carbamazepine [From TEGRETOL] AdvReac Mild Nausea and Verified 09/18/24 15:29 Vomiting topiramate [From Topamax] AdvReac Mild Nausea and Verified 09/18/24 15:29 Vomiting Plan I have reviewed the history and physical and performed a pertinent physical examination on my patient. No changes have occurred unless specified. Time Spent With Patient Time: Total time managing care of this patient today ____ minutes.
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
--- NOTE | 2024-09-29 07:07 | HO.ECTPROC ---
ECT Procedure Note Diagnosis/Treatment Date of Service: 09/29/24 Diagnosis: Major Depressive Disorder and Other (ptsd) Previous ECT Date: 09/22/24 Treatment: Maintenance Interval Clinical Notes: Pt has been inc depressed discussed with pt benefits risks limitations of ect . Does appear to help moderate intrusive ptsd sx and dec self harm no obvious cognitive impairmrnt noted decrease etomidate to 12 mg Time: Total time managing care of this patient today ____ minutes. ECT Settings Device: THYMATRON DGx Electrode Placement: Bitemporal Program/Pulse Width: 0.50 Energy Percent: 100 Seizure Duration By EEG (in seconds): 15 Medications Administration General Anesthetic: Etomidate (14) Muscle Relaxant: Succinylcholine Ancillary Medications Anti-emetics: Zofran - Pre ECT Airway Management Airway Management: Bag Mask Ventilation Treatment Recommendations Notes: no cognitive complaints Pt Tolerated Procedure w/o Issue: Yes
--- NOTE | 2024-09-29 07:12 | P.CONAN_ITS ---
[facility] Active Problems Active Problems: All Active Problems Pre-op evaluation (Acute) Suicidal ideation (Acute) MDD (major depressive disorder), recurrent, severe, with psychosis (Acute) Depression (Acute) Osteoarthritis of right knee (Acute) Chronic post-traumatic stress disorder (PTSD) (Chronic) Borderline personality disorder (Chronic) Auditory hallucinations (Acute) Port-A-Cath in place (Acute) Intentional self-harm (Acute) COPD (chronic obstructive pulmonary disease) (Acute) Asthma (Acute) Adjustment disorder (Acute) Anxiety (Acute) Injury of ligament of right knee (Acute) Sprain of anterior cruciate ligament of right knee (Acute) Hernia (Chronic) Increased BMI (Acute) GERD (gastroesophageal reflux disease) (Acute) Past Medical History Medical History (Updated 09/21/24 @ 15:10 by JUANITO Olivo) Pre-op evaluation Schizoaffective disorder, depressive type Depression with suicidal ideation MDD (major depressive disorder), recurrent, severe, with psychosis Port-A-Cath in place History of electroconvulsive therapy COVID-19 COVID-19 Sprain of left foot Chronic post-traumatic stress disorder (PTSD) COPD (chronic obstructive pulmonary disease) Increased BMI GERD (gastroesophageal reflux disease) Recurrent major depression-severe Acute post-traumatic stress disorder Injury, self-inflicted Suicidal ideation Self-harming behavior Intentional self-harm Suicidal ideation Borderline personality disorder Schizoaffective disorder Adjustment disorder Asthma Depression Anxiety PTSD (post-traumatic stress disorder) Family History Family History Mother Brain cancer Other No family history of cardiac disease Family history of problems with anesthesia: No Surgical History History of Problems with Anesthesia: No Social History Social History Household Members: Other Household Members Other:: group housemates Housing: Other Housing Other:: long-term Do you presently have visiting nurse or other home services: No Unable to assess alcohol history related to: Unable to respond Alcohol intake: never Comment: 1:1 safety observation Patient Tobacco Use Status: Current everyday Tobacco user Tobacco use type: Cigarette Cigarette Packs Per Day: 0.5 Cigarettes Per Day: 8 Years Smoked: 20 Smoked in Last 30 Days: Yes e-Cigarette/Vaping Use: Former Use Patient Interested in Nicotine Replacement: Yes Patient Given Instructions on How to Stop Smoking: Yes Date Education Initiated: 09/18/24 Second Hand Smoke Exposure: Yes Use of substances other than those prescribed or required for medical reasons: Yes Substance Use Type: Marijuana Substance Use Frequency: Socially Last Used Substance: Just Prior to Admission Currently Displaying Signs/Symptoms of Drug Intoxication Withdrawal: No Any prior treatment program specific to substance use: No Have you been hit, kicked, punched, or otherwise hurt by someone within the past year? If so, by whom?: No Do you feel safe in your current relationship?: No Current Relationship Is there a partner from a previous relationship who is making you feel unsafe now?: No Are you made to feel afraid or neglected: No Spiritual Healthcare Practices: none Jewish Healthcare Practices: none Cultural Healthcare Practices: none Advance Directives: No Advance Directives Information Provided: No Do you have thoughts of harming others: None Do you have a plan to hurt others: No Plan Recently lost weight without trying: Unsure Eating poorly because of decreased appetite: Yes Nutrition Risks: No Nutritional Risk Patient : No : No Poor oral hygiene: No service: No Current occupation: rt handed Sexual orientation: Straight/Heterosexual Meds Allergies Allergy/AdvReac Type Severity Reaction Status Date / Time carbamazepine [From TEGRETOL] AdvReac Mild Nausea and Verified 09/18/24 15:29 Vomiting topiramate [From Topamax] AdvReac Mild Nausea and Verified 09/18/24 15:29 Vomiting Active Medications: Current Medications Acetaminophen (Acetaminophen 325 Mg Tablet) 650 mg PO Q6H PRN PRN Reason: Headache/Pain Mild Scale (1-3) Last Admin: 09/24/24 14:14 Dose: 650 mg Al Hydroxide/Mg Hydroxide (Magnesium Hydrox/Alum Hydrox 30 Ml Oral.Susp) 30 ml PO Q6H PRN PRN Reason: Heartburn/Nausea Last Admin: 09/19/24 18:15 Dose: 30 ml Albuterol Sulfate (Albuterol Sulfate 90 Mcg 8 Gm Inhaler) 2 puff INHALE Q6H PRN PRN Reason: shortness of breath or wheezing Benztropine Mesylate (Benztropine Mesylate 0.5 Mg Tablet) 0.5 mg PO BID [facility] Last Admin: 09/28/24 21:09 Dose: 0.5 mg Calcium Carbonate/Cholecalciferol (Calcium + Vitamin D 250 Mg Tablet) 500 mg PO BID [facility] Last Admin: 09/28/24 21:07 Dose: 500 mg Clonidine HCl (Clonidine Hcl 0.1 Mg Tablet) 0.1 mg PO TID [facility]; Protocol Last Admin: 09/28/24 21:07 Dose: 0.1 mg Diphenhydramine HCl (Diphenhydramine Hcl 25 Mg Capsule) 100 mg PO BEDTIME [facility] Last Admin: 09/28/24 21:47 Dose: 100 mg Diphenhydramine HCl (Diphenhydramine Hcl 25 Mg Capsule) 25 mg PO Q4H PRN PRN Reason: itchiness Last Admin: 09/21/24 16:51 Dose: 25 mg Duloxetine HCl (Duloxetine Hcl 30 Mg Capsule.Dr) 90 mg PO DAILY [facility] Last Admin: 09/28/24 10:56 Dose: 90 mg Fluticasone Propionate (Fluticasone Propionate Nasal 16 Gm Mars) 2 spray NOSTRIL-B DAILY [facility] Last Admin: 09/28/24 10:57 Dose: 2 spray Fluticasone/Vilanterol (Fluticasone/Vilanterol 200/25 Blst.W.Dev) 1 puff INHALE RDAILY [facility] Last Admin: 09/28/24 10:57 Dose: 1 puff Haloperidol (Haloperidol 5 Mg Tablet) 5 mg PO TID [facility] Last Admin: 09/28/24 21:09 Dose: 5 mg Haloperidol Decanoate (Haloperidol Decanoate 50 Mg/Ml Vial) 75 mg IM Q28D [facility] Last Admin: 09/23/24 11:39 Dose: 75 mg Hydroxyzine HCl (Hydroxyzine Hcl 25 Mg Tablet) 25 mg PO Q6H PRN PRN Reason: Anxiety Last Admin: 09/25/24 03:28 Dose: 25 mg Hydroxyzine HCl (Hydroxyzine Hcl 50 Mg Tablet) 50 mg PO Q6H PRN PRN Reason: mild anxiety Last Admin: 09/28/24 18:18 Dose: 50 mg Ibuprofen (Ibuprofen 600 Mg Tablet) 600 mg PO Q8H PRN PRN Reason: Pain, Mild FOOT PAIN Last Admin: 09/25/24 03:28 Dose: 600 mg [place] Carbonate ([place] Carbonate 300 Mg Capsule) 300 mg PO BID [facility] Last Admin: 09/28/24 21:19 Dose: Not Given Loratadine (Loratadine 10 Mg Tablet) 10 mg PO DAILY [facility] Last Admin: 09/28/24 10:56 Dose: 10 mg Lorazepam (Lorazepam 1 Mg Tablet) 1 mg PO TID PRN PRN Reason: anxiety/agitation Last Admin: 09/27/24 19:06 Dose: 1 mg Magnesium Hydroxide (Milk Of Magnesia 30 Ml Oral.Susp) 30 ml PO DAILY PRN PRN Reason: Constipation Last Admin: 09/23/24 09:50 Dose: 30 ml Multivitamins/Vitamin C (Multivitamin Tablet) 1 tab PO DAILY [facility] Last Admin: 09/28/24 10:56 Dose: 1 tab Naloxone HCl (Naloxone Hcl 0.4 Mg/Ml Vial) 0.04 mg IVPUSH Q5M PRN PRN Reason: Excessive sedation or RR < 8 Nicotine Polacrilex (Nicotine Polacrilex 2 Mg Gum) 2 mg BUCCAL Q2H PRN PRN Reason: Cravings Last Admin: 09/24/24 12:44 Dose: 2 mg Omeprazole (Omeprazole 20 Mg Capsule.Dr) 20 mg PO Q48H [facility] Last Admin: 09/27/24 07:04 Dose: 20 mg Ondansetron HCl (Ondansetron Odt 4 Mg Tab.Rapdis) 4 mg TRANSLINGU Q6H PRN PRN Reason: Nausea and Vomiting Last Admin: 09/19/24 09:46 Dose: 4 mg Polyethylene Glycol (Polyethylene Glycol 3350 17 Gm Powd.Pack) 17 gm PO TID [facility] Last Admin: 09/28/24 21:10 Dose: Not Given Prazosin HCl (Prazosin Hcl 1 Mg Capsule) 1 mg PO BEDTIME [facility]; Protocol Last Admin: 09/28/24 21:13 Dose: 1 mg Prazosin HCl (Prazosin Hcl 5 Mg Capsule) 15 mg PO BEDTIME [facility]; Protocol Last Admin: 09/28/24 21:08 Dose: 15 mg Trazodone HCl (Trazodone Hcl 100 Mg Tablet) 200 mg PO BEDTIME [facility] Last Admin: 09/28/24 21:08 Dose: 200 mg Vitamin D (Cholecalciferol (Vitamin D3) 25 Mcg Tablet) 25 mcg PO DAILY [facility] Last Admin: 09/28/24 10:56 Dose: 25 mcg Zolpidem Tartrate (Zolpidem Tartrate 5 Mg Tablet) 10 mg PO BEDTIME [facility] Last Admin: 09/28/24 21:09 Dose: 10 mg Home Medications ?Medication ?Instructions ?Recorded ?Confirmed ?Last Taken ?Type benztropine 0.5 mg tablet 0.5 mg PO BID 04/30/24 09/18/24 09/17/24 History clonidine HCl 0.1 mg tablet 0.1 mg PO TID 04/30/24 09/18/24 09/17/24 History diphenhydramine HCl 50 mg capsule 100 mg PO BEDTIME insomnia 04/30/24 09/18/24 09/17/24 History (Banophen) duloxetine 60 mg capsule,delayed 60 mg PO DAILY 04/30/24 09/18/24 09/17/24 History release lithium carbonate 300 mg tablet 300 mg PO BID 04/30/24 09/18/24 09/17/24 History omeprazole 20 mg capsule,delayed 20 mg PO Q OTHER DAY 04/30/24 09/18/24 09/17/24 History release prazosin 5 mg capsule 15 mg PO BEDTIME 04/30/24 09/18/24 09/17/24 History trazodone 100 mg tablet 200 mg PO BEDTIME insomnia 04/30/24 09/18/24 09/17/24 History cetirizine 10 mg tablet 10 mg PO DAILY 05/17/24 09/18/24 09/17/24 History multivitamin 1 tab PO DAILY 05/17/24 09/18/24 09/17/24 History psyllium husk 0.4 gram capsule 0.8 g PO BID 05/17/24 09/18/24 09/17/24 History (Daily Fiber) zolpidem 10 mg tablet 10 mg PO BEDTIME insomnia 05/17/24 09/18/24 09/17/24 History calcium 600 mg (as 1 tab PO BID 07/29/24 09/18/24 09/17/24 History carbonate)-vitamin D3 10 mcg (400 unit) tablet cholecalciferol (vitamin D3) 25 25 mcg PO DAILY 07/29/24 09/18/24 09/17/24 History mcg (1,000 unit) tablet (Vitamin D3) fluticasone propionate 50 2 spray intranasal DAILY 08/15/24 09/18/24 09/17/24 History mcg/actuation nasal spray,suspension haloperidol 5 mg tablet 5 mg PO TID 08/15/24 09/18/24 09/17/24 History haloperidol decanoate 100 mg/mL 75 mg IM Q28D 08/15/24 09/18/24 08/26/24 10:31 History intramuscular solution nicotine (polacrilex) 2 mg gum 2 mg PO Q2H PRN Cravings 08/15/24 09/18/24 09/17/24 History prazosin 1 mg capsule 1 mg PO BEDTIME 08/15/24 09/18/24 09/17/24 History budesonide-formoterol HFA 160 2 puff inhalation BID 08/17/24 09/18/24 09/17/24 History mcg-4.5 mcg/actuation aerosol inhaler (Symbicort) Exam Height,Weight and Vital Signs: Height 4 ft 11 in Weight 82.3 kg Last Vital Signs Temp 97.3 F 09/29/24 07:05 Pulse 112 H 09/29/24 07:05 Resp 20 09/29/24 07:05 BP 126/66 09/29/24 07:05 Pulse Ox 97 09/29/24 07:05 O2 Del Method Room Air 09/29/24 07:05 Pertinent Lab Results Pertinent Lab Results: Laboratory Tests 09/18/24 09/18/24 09/18/24 15:37 15:38 16:02 WBC 7.1 RBC 3.81 L Hgb 11.4 L Hct 34.0 L MCV 89.2 MCH 29.9 MCHC 33.5 RDW 12.8 Plt Count 292 MPV 10.9 Immature Gran % (Auto) 0.3 Neut % (Auto) 75.3 H Lymph % (Auto) 18.2 L [place] % (Auto) 5.4 Eos % (Auto) 0.4 Baso % (Auto) 0.4 Lymph # (Auto) 1.3 [place] # (Auto) 0.4 Eos # (Auto) 0.0 Baso # (Auto) 0.0 Abs Immat Gran (auto) 0.02 Absolute Neuts (auto) 5.3 Absolute Nucleated RBC 0.000 Nucleated RBC % (auto) 0.0 Sodium 136 Potassium 3.8 Chloride 106 Carbon Dioxide 24 Anion Gap 10 L BUN 9 Creatinine 0.72 Estim Creat Clear Calc 101.6 Estimated GFR > 60 Random Glucose 95 Estimat Average Glucose Hemoglobin A1c % Calcium 9.0 Total Bilirubin 0.2 AST 16 ALT 11 Alkaline Phosphatase 56 Total Protein 7.3 Albumin 4.2 Triglycerides Cholesterol LDL Cholesterol, Calc HDL Cholesterol TSH Urine Color Yellow Urine Appearance Clear Urine pH 7.0 Ur Specific [place] <= 1.005 Urine Protein Negative Urine Glucose (UA) Negative Urine Ketones Negative Urine Blood Negative Urine Nitrite Negative Ur Leukocyte Esterase Negative Urine RBC Urine WBC Ur Squamous Epith Cells Urine Bacteria Hyaline Casts Urine Test NEGATIVE Salicylates < 5.0 L Urine Opiates Screen Not Detected Ur Buprenorphine Scrn Not Detected Ur Oxycodone Screen Not Detected Urine Methadone Screen Not Detected Urine Fentanyl Screen Not Detected Acetaminophen < 3 Ur Barbiturates Screen Not Detected Ur Phencyclidine Scrn Not Detected Ur Amphetamines Screen Not Detected U Benzodiazepines Scrn Not Detected Urine Cocaine Screen Not Detected U Marijuana (THC) Screen POSITIVE H Ethyl Alcohol < 10 COVID-19 (RAFAL) COVID-19 [employer] 09/18/24 09/18/24 09/19/24 16:03 20:35 07:43 WBC RBC Hgb Hct MCV MCH MCHC RDW Plt Count MPV Immature Gran % (Auto) Neut % (Auto) Lymph % (Auto) [place] % (Auto) Eos % (Auto) Baso % (Auto) Lymph # (Auto) [place] # (Auto) Eos # (Auto) Baso # (Auto) Abs Immat Gran (auto) Absolute Neuts (auto) Absolute Nucleated RBC Nucleated RBC % (auto) Sodium 137 Potassium 3.7 Chloride 108 Carbon Dioxide 22 Anion Gap 11 L BUN 7 L Creatinine 0.67 Estim Creat Clear Calc 109.1 Estimated GFR > 60 Random Glucose 99 Estimat Average Glucose 97 Hemoglobin A1c % 5.0 Calcium 9.2 Total Bilirubin 0.2 AST 18 ALT 15 Alkaline Phosphatase 55 Total Protein 7.4 Albumin 4.2 Triglycerides 57 Cholesterol 146 LDL Cholesterol, Calc 81 HDL Cholesterol 54 TSH 2.57 Urine Color Urine Appearance Urine pH Ur Specific [place] Urine Protein Urine Glucose (UA) Urine Ketones Urine Blood Urine Nitrite Ur Leukocyte Esterase Urine RBC Urine WBC Ur Squamous Epith Cells Urine Bacteria Hyaline Casts Urine Test Salicylates Urine Opiates Screen Ur Buprenorphine Scrn Ur Oxycodone Screen Urine Methadone Screen Urine Fentanyl Screen Acetaminophen Ur Barbiturates Screen Ur Phencyclidine Scrn Ur Amphetamines Screen U Benzodiazepines Scrn Urine Cocaine Screen U Marijuana (THC) Screen Ethyl Alcohol COVID-19 (RAFAL) Negative COVID-19 Pact Com See Note 09/27/24 14:50 WBC RBC Hgb Hct MCV MCH MCHC RDW Plt Count MPV Immature Gran % (Auto) Neut % (Auto) Lymph % (Auto) [place] % (Auto) Eos % (Auto) Baso % (Auto) Lymph # (Auto) [place] # (Auto) Eos # (Auto) Baso # (Auto) Abs Immat Gran (auto) Absolute Neuts (auto) Absolute Nucleated RBC Nucleated RBC % (auto) Sodium Potassium Chloride Carbon Dioxide Anion Gap BUN Creatinine Estim Creat Clear Calc Estimated GFR Random Glucose Estimat Average Glucose Hemoglobin A1c % Calcium Total Bilirubin AST ALT Alkaline Phosphatase Total Protein Albumin Triglycerides Cholesterol LDL Cholesterol, Calc HDL Cholesterol TSH Urine Color Yellow Urine Appearance Clear Urine pH 8.0 Ur Specific [place] <= 1.005 Urine Protein Negative Urine Glucose (UA) Negative Urine Ketones Negative Urine Blood Negative Urine Nitrite Negative Ur Leukocyte Esterase Negative Urine RBC 0-2 Urine WBC 0-5 Ur Squamous Epith Cells 0-2 Urine Bacteria None Seen Hyaline Casts 0-2 Urine Test Salicylates Urine Opiates Screen Ur Buprenorphine Scrn Ur Oxycodone Screen Urine Methadone Screen Urine Fentanyl Screen Acetaminophen Ur Barbiturates Screen Ur Phencyclidine Scrn Ur Amphetamines Screen U Benzodiazepines Scrn Urine Cocaine Screen U Marijuana (THC) Screen Ethyl Alcohol COVID-19 (RAFAL) COVID-19 Clin Com Airway Mallampati Class: II (poor dentition, missing a couple) TM Dist: >3cm Neck ROM: Full Heart: rrr Lungs: cta Assessment and Plan Assessment Anesthesia Assessment: Anesthesia Plan Discussed and Chart Reviewed Final Anesthetic Review Family History of Problems with Anesthesia: No History of Problems with Anesthesia: No NPO: Yes ASA Class: III Final Preanesthetic Review: No Changes in Pt Med Stat, Meds/Allgs Chart Reviewed and Consent Obtained/Reviewed Patient Risk: Intermediate Procedure Risk: Intermediate Anesthetic Plan Anesthetic Plan: GA Disposition: Standard PACU
[2024-09-29] MEDS: Calcium + Vitamin D 250 MG TABLET 500 MG PO ×2 (09:03→20:50)
[2024-09-29] MEDS: Omeprazole 20 MG CAPSULE.DR PO (09:03)
[2024-09-29] MEDS: Loratadine 10 MG TABLET PO (09:03)
[2024-09-29] MEDS: Cholecalciferol (Vitamin D3) 25 MCG TABLET PO (09:04)
[2024-09-29] MEDS: DULoxetine HCl 30 MG CAPSULE.DR 90 MG PO (09:04)
[2024-09-29] MEDS: Benztropine Mesylate 0.5 MG TABLET PO ×2 (09:04→20:51)
[2024-09-29] MEDS: cloNIDine HCL 0.1 MG TABLET PO ×3 (09:04→20:51)
[2024-09-29] MEDS: Lithium Carbonate 300 MG CAPSULE PO ×2 (09:04→20:49)
[2024-09-29] MEDS: HaloperidoL 5 MG TABLET PO ×3 (09:04→20:50)
[2024-09-29] MEDS: Ibuprofen 600 MG TABLET PO (13:21)
[2024-09-29] MEDS: LORazepam 1 MG TABLET PO ×2 (14:38→20:49)
[2024-09-29] MEDS: Acetaminophen 325 MG TABLET 650 MG PO (18:18)
[2024-09-29] MEDS: Prazosin HCL 1 MG CAPSULE PO (20:49)
[2024-09-29] MEDS: diphenhydrAMINE HCL 25 MG CAPSULE 100 MG PO (20:49)
[2024-09-29] MEDS: Prazosin HCL 5 MG CAPSULE 15 MG PO (20:49)
[2024-09-29] MEDS: traZODone HCL 100 MG TABLET 200 MG PO (20:50)
[2024-09-29] MEDS: Zolpidem Tartrate 5 MG TABLET 10 MG PO (20:50)
[2024-09-30] MEDS: hydrOXYzine HCL 50 MG TABLET PO (00:55)
[2024-09-30 08:00] VITALS: BP 136/80; PULSE 91; RESP 16; TEMP 36.3; O2SAT 97
[2024-09-30] MEDS: DULoxetine HCl 30 MG CAPSULE.DR 90 MG PO (09:20)
[2024-09-30 09:21] VITALS: BP 136/80
[2024-09-30] MEDS: Calcium + Vitamin D 250 MG TABLET 500 MG PO ×2 (09:21→20:41)
[2024-09-30] MEDS: cloNIDine HCL 0.1 MG TABLET PO ×3 (09:21→20:41)
[2024-09-30] MEDS: Benztropine Mesylate 0.5 MG TABLET PO ×2 (09:21→20:40)
[2024-09-30] MEDS: Cholecalciferol (Vitamin D3) 25 MCG TABLET PO (09:21)
[2024-09-30] MEDS: Multivitamin TABLET 1 TAB PO (09:21)
[2024-09-30] MEDS: HaloperidoL 5 MG TABLET PO ×3 (09:21→20:40)
[2024-09-30] MEDS: Lithium Carbonate 300 MG CAPSULE PO ×2 (09:21→20:41)
[2024-09-30] MEDS: Loratadine 10 MG TABLET PO (09:21)
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
[2024-09-30] MEDS: LORazepam 1 MG TABLET PO (14:53)
[2024-09-30] MEDS: LORazepam 2 MG/ML VIAL IM (16:54)
[2024-09-30] MEDS: Haloperidol Lactate 5 MG/ML VIAL IM (16:54)
[2024-09-30 20:00] VITALS: BP 128/80; PULSE 88; RESP 14; TEMP 36.4; O2SAT 97
[2024-09-30] MEDS: Prazosin HCL 1 MG CAPSULE PO (20:40)
[2024-09-30] MEDS: traZODone HCL 100 MG TABLET 200 MG PO (20:40)
[2024-09-30] MEDS: diphenhydrAMINE HCL 25 MG CAPSULE 100 MG PO (20:40)
[2024-09-30] MEDS: Prazosin HCL 5 MG CAPSULE 15 MG PO (20:40)
[2024-09-30] MEDS: Zolpidem Tartrate 5 MG TABLET 10 MG PO (20:40)
[2024-10-01] MEDS: hydrOXYzine HCL 25 MG TABLET PO (00:37)
[2024-10-01] MEDS: LORazepam 1 MG TABLET PO ×3 (00:37→20:00)
[2024-10-01 08:00] VITALS: BP 146/80; PULSE 73; RESP 20; TEMP 36.8; O2SAT 96
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
[2024-10-01] MEDS: Multivitamin TABLET 1 TAB PO (09:51)
[2024-10-01] MEDS: Calcium + Vitamin D 250 MG TABLET 500 MG PO ×2 (09:51→20:01)
[2024-10-01] MEDS: DULoxetine HCl 30 MG CAPSULE.DR 90 MG PO (09:51)
[2024-10-01] MEDS: Omeprazole 20 MG CAPSULE.DR PO (09:52)
[2024-10-01] MEDS: Benztropine Mesylate 0.5 MG TABLET PO ×2 (09:52→20:00)
[2024-10-01] MEDS: Loratadine 10 MG TABLET PO (09:52)
[2024-10-01] MEDS: Cholecalciferol (Vitamin D3) 25 MCG TABLET PO (09:53)
[2024-10-01] MEDS: Lithium Carbonate 300 MG CAPSULE PO ×2 (09:53→20:02)
[2024-10-01] MEDS: HaloperidoL 5 MG TABLET PO ×3 (09:53→20:02)
[2024-10-01 10:02] VITALS: BP 134/60
[2024-10-01] MEDS: cloNIDine HCL 0.1 MG TABLET PO ×3 (10:02→20:02)
[2024-10-01] MEDS: hydrOXYzine HCL 50 MG TABLET PO (13:35)
[2024-10-01 14:02] VITALS: BP 128/66
[2024-10-01 19:33] VITALS: BP 114/64; PULSE 98; TEMP 36.5; O2SAT 97
[2024-10-01] MEDS: Zolpidem Tartrate 5 MG TABLET 10 MG PO (20:00)
[2024-10-01] MEDS: diphenhydrAMINE HCL 25 MG CAPSULE 100 MG PO (20:00)
[2024-10-01] MEDS: Prazosin HCL 1 MG CAPSULE PO (20:01)
[2024-10-01] MEDS: traZODone HCL 100 MG TABLET 200 MG PO (20:01)
[2024-10-01] MEDS: Prazosin HCL 5 MG CAPSULE 15 MG PO (20:01)
[2024-10-02] MEDS: hydrOXYzine HCL 50 MG TABLET PO ×2 (00:20→15:58)
[2024-10-02] MEDS: LORazepam 1 MG TABLET PO ×2 (00:21→20:59)
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
[2024-10-02 09:58] VITALS: BP 133/59; PULSE 109; RESP 19; TEMP 36.6; O2SAT 98
[2024-10-02] MEDS: Lithium Carbonate 300 MG CAPSULE PO ×2 (09:59→20:00)
[2024-10-02] MEDS: DULoxetine HCl 30 MG CAPSULE.DR 90 MG PO (09:59)
[2024-10-02] MEDS: Calcium + Vitamin D 250 MG TABLET 500 MG PO ×2 (09:59→20:00)
[2024-10-02] MEDS: Cholecalciferol (Vitamin D3) 25 MCG TABLET PO (09:59)
[2024-10-02] MEDS: Loratadine 10 MG TABLET PO (09:59)
[2024-10-02] MEDS: Multivitamin TABLET 1 TAB PO (09:59)
[2024-10-02] MEDS: HaloperidoL 5 MG TABLET PO ×3 (09:59→20:00)
[2024-10-02] MEDS: Benztropine Mesylate 0.5 MG TABLET PO ×2 (09:59→19:59)
[2024-10-02] MEDS: Fluticasone/Vilanterol 200/25 BLST.W.DEV 1 PUFF INHALE (10:00)
[2024-10-02] MEDS: Fluticasone Propionate Nasal 16 GM SPRAY 2 SPRAY NOSTRIL-B (10:00)
[2024-10-02] MEDS: cloNIDine HCL 0.1 MG TABLET PO ×3 (10:08→20:00)
[2024-10-02 14:08] VITALS: BP 109/71
[2024-10-02 19:59] VITALS: BP 132/60
[2024-10-02] MEDS: diphenhydrAMINE HCL 25 MG CAPSULE 100 MG PO (19:59)
[2024-10-02] MEDS: Prazosin HCL 5 MG CAPSULE 15 MG PO (19:59)
[2024-10-02] MEDS: Zolpidem Tartrate 5 MG TABLET 10 MG PO (19:59)
[2024-10-02] MEDS: traZODone HCL 100 MG TABLET 200 MG PO (19:59)
[2024-10-02 20:00] VITALS: BP 132/60; PULSE 87; TEMP 36.4; O2SAT 99
[2024-10-02] MEDS: Prazosin HCL 1 MG CAPSULE PO (20:00)
[2024-10-03] MEDS: hydrOXYzine HCL 50 MG TABLET PO (03:44)
[2024-10-03] MEDS: LORazepam 1 MG TABLET PO ×2 (03:44→11:22)
[2024-10-03] MEDS: Omeprazole 20 MG CAPSULE.DR PO (06:39)
[2024-10-03 08:00] VITALS: BP 182/89; PULSE 91; RESP 18; TEMP 37; O2SAT 97
[2024-10-03] MEDS: Fluticasone Propionate Nasal 16 GM SPRAY 2 SPRAY NOSTRIL-B (08:23)
[2024-10-03] MEDS: cloNIDine HCL 0.1 MG TABLET PO (08:24)
[2024-10-03] MEDS: Fluticasone/Vilanterol 200/25 BLST.W.DEV 1 PUFF INHALE (08:24)
[2024-10-03] MEDS: HaloperidoL 5 MG TABLET PO (08:24)
[2024-10-03] MEDS: Multivitamin TABLET 1 TAB PO (08:24)
[2024-10-03] MEDS: Loratadine 10 MG TABLET PO (08:24)
[2024-10-03] MEDS: Cholecalciferol (Vitamin D3) 25 MCG TABLET PO (08:24)
[2024-10-03] MEDS: Calcium + Vitamin D 250 MG TABLET 500 MG PO (08:25)
[2024-10-03] MEDS: Lithium Carbonate 300 MG CAPSULE PO (08:25)
[2024-10-03] MEDS: Benztropine Mesylate 0.5 MG TABLET PO (08:25)
[2024-10-03] MEDS: DULoxetine HCl 30 MG CAPSULE.DR 90 MG PO (11:22)
--- NOTE | 2024-10-03 11:22 | P.DS_ITS ---
DS: Providers Provider Date of Service: 10/03/24 Date of admission: 09/18/24 18:45 Date of discharge: 10/03/24 Primary care physician: Hafsa Holcomb NP Attending physician on admission: Maurizio Hernández Consults: 09/21/24 09:31 Consult to Hospitalist Routine Comment: Consulting Provider: [facility] [place] Hospitalists Reason For Exam: ECT risk stratification Attending physician on discharge: Maurizio Hernández DS: Diagnosis Discharge Diagnosis (1) Chronic post-traumatic stress disorder (PTSD): Status: Chronic (2) Borderline personality disorder: Status: Chronic (3) MDD (major depressive disorder), recurrent, severe, with psychosis: Status: Acute DS: Medications Discharge Medications Home Medications: Home Medications ?Medication ?Instructions ?Recorded ?Confirmed benztropine 0.5 mg tablet 0.5 mg PO BID 04/30/24 09/18/24 clonidine HCl 0.1 mg tablet 0.1 mg PO TID 04/30/24 09/18/24 diphenhydramine HCl 50 mg capsule 100 mg PO BEDTIME insomnia 04/30/24 09/18/24 (Banophen) lithium carbonate 300 mg tablet 300 mg PO BID 04/30/24 09/18/24 omeprazole 20 mg capsule,delayed 20 mg PO Q OTHER DAY 04/30/24 09/18/24 release prazosin 5 mg capsule 15 mg PO BEDTIME 04/30/24 09/18/24 trazodone 100 mg tablet 200 mg PO BEDTIME insomnia 04/30/24 09/18/24 cetirizine 10 mg tablet 10 mg PO DAILY 05/17/24 09/18/24 multivitamin 1 tab PO DAILY 05/17/24 09/18/24 psyllium husk 0.4 gram capsule 0.8 g PO BID 05/17/24 09/18/24 (Daily Fiber) zolpidem 10 mg tablet 10 mg PO BEDTIME insomnia 05/17/24 09/18/24 calcium 600 mg (as 1 tab PO BID 07/29/24 09/18/24 carbonate)-vitamin D3 10 mcg (400 unit) tablet cholecalciferol (vitamin D3) 25 25 mcg PO DAILY 07/29/24 09/18/24 mcg (1,000 unit) tablet (Vitamin D3) fluticasone propionate 50 2 spray intranasal DAILY 08/15/24 09/18/24 mcg/actuation nasal spray,suspension haloperidol 5 mg tablet 5 mg PO TID 08/15/24 09/18/24 haloperidol decanoate 100 mg/mL 75 mg IM Q28D 08/15/24 09/18/24 intramuscular solution nicotine (polacrilex) 2 mg gum 2 mg PO Q2H PRN Cravings 08/15/24 09/18/24 prazosin 1 mg capsule 1 mg PO BEDTIME 08/15/24 09/18/24 budesonide-formoterol HFA 160 2 puff inhalation BID 08/17/24 09/18/24 mcg-4.5 mcg/actuation aerosol inhaler (Symbicort) Previous Rx's ?Medication ?Instructions ?Recorded lorazepam 1 mg tablet 1 mg PO TID PRN anxiety/agitation 05/22/24 #0 tabs albuterol sulfate 90 mcg/actuation 2 puff inhalation Q4-6H PRN 08/30/24 aerosol inhaler shortness of breath or wheezing #6.7 grams duloxetine 30 mg capsule,delayed 30 mg PO DAILY 30 days #30 caps 10/03/24 release duloxetine 60 mg capsule,delayed 60 mg PO DAILY 30 days #30 caps 10/03/24 release hydroxyzine HCl 50 mg tablet 50 mg PO Q6H PRN mild anxiety 30 10/03/24 days #90 tabs Mental Status Exam Mental Status Exam Narrative: Pt is alert and oriented; behavior is cooperative, friendly, calm and in good behavioral and impulse control; dressed in casual attire with adequate grooming and hygiene; wearing mask; eye contact appropriate; Speech is normal rate,, volume and prosody and not pressured; no psychomotor agitation and retardation present; thought process is organized and goal directed; Thought content is on processing her feelings over recent losses; otherwise pertinent to relevant topics and without any delusional content, paranoid ideations or grandiosity; no SI/HI; no self-harming urges; no AVH. Patients insight and judgment are a dequate and baseline Data Data Completed and Pending Completed studies during hospitalization [Text1]: 09/27/24 14:50 Urine Color Yellow Urine Appearance Clear Urine pH 8.0 Ur Specific [place] <= 1.005 Urine Protein Negative Urine Glucose (UA) Negative Urine Ketones Negative Urine Blood Negative Urine Nitrite Negative Ur Leukocyte Esterase Negative Urine RBC 0-2 Urine WBC 0-5 Ur Squamous Epith Cells 0-2 Urine Bacteria None Seen Hyaline Casts 0-2 DS: Summary Hospital Course Hospital Course: HPI: Pt is a 39 y.o. female, with hx of PTSD (extensive trauma history), and BPD, (she carries a dx of schizoaffective DO, depressive type),chronic SI, chronic self-harming urges/ behaviors, COPD/asthma and multiple inpatient admissions/ED visits who presents for overwhelming anxiety and self-harming urges in face of recent loss of father. Currently she is having strong urges to self harm and asks for 1:1 to help her stay safe. She reports AH of voices saying to harm herself (However these are mood congruent and resolve when she's no longer feeling stressed/anxious/depressed). Pt wanted to discuss medication management wondering if adjustments could help her stay out of the hospital more, but concluded that therapy is the missing component to her treatment. Hospital course: Similar presentation to past admissions. On admission patient was cooperative but with continued urges to self-harm; although she is able to keep herself from it, she was on a one-to-one throughout her time on the unit as she typically is. Patient intermittently had AH to harm herself. Discussed AH again and patient and real estate underwriter agree it is mood congruent. Office Support Assistant and patient thoroughly discussed her symptoms and struggles and she agreed to increase Cymbalta to 90 m g. However both patient, real estate underwriter and team agreed that the most important addition to her treatment regimen is therapy- consistent, weekly, outpatient therapy...rather than additional medication management. Patient, inpatient team and outpatient staff had a meeting where this was discussed and agreed upon and efforts were being made to establish consistent outpatient therapy. Also discussed ECT and while real estate underwriter and Dr. Silva agreed there is utility in continuing ECT, there is no clear indication that increasing the frequency would be beneficial and plan was to taper to every 3 weeks. Although patient remained on a one-to-one, she remained in behavioral and impulse control. Patient returned to baseline; self-harming urges became infrequent and with low intensity and AH mostly resolved. Patient asked for discharge and team agreed she was appropriate to return to the community for treatment. While she remains at risk for decompensation and return of self-harming urges, this is a chronic problem that she mostly handles in the outpatient setting and 1 that will not change with longer inpatient stay for further medication management (as mentioned above, outpatient therapy remains primary treatment plan). Patient has a long history of demonstrating she is both willing and able to reach out for help when she is feeling unsafe. She is not in imminent risk for harm to self or others and request for discharge honored. Medications: Increased Cymbalta to 90 mg Time spent discussing smoking cessation with patient: 3 to 10 minutes Status at Discharge Functional status at discharge: independent ambulation Overall status at discharge: patient is back to baseline Time Spent with Patient Time attestation: Total time managing care of this patient today _40___ minutes. Time spent: Greater than 30 minutes Discharge Plan Discharge Anticipated Discharge Date/Time: 10/03/24 11:30 Patient Disposition: Home, Self-Care Discharge Diagnosis: PTSD, chronic with acute exacerbation Referrals: Psychiatrist: Dr. Kemi Lovelace ([facility]) [Other] - 11/07/24 2:30 pm (Appointment is in person at the office in [place] ) Hafsa Holcomb NP [Primary Care Provider] - (Office will call Pt with follow up appointment. ) Discharge Medications: New duloxetine 30 mg Capsule,Delayed Release(Dr/Ec) 30 mg PO DAILY 30 Days Qty: 30 0RF Rx Instructions: take with 60mg capsule hydroxyzine HCl 50 mg Tablet 50 mg PO Q6H PRN (Reason: mild anxiety) 30 Days Qty: 90 0RF Continued clonidine HCl 0.1 mg tablet 0.1 mg PO TID Rx Instructions: takes at 0800, 1400 and 2000 benztropine 0.5 mg tablet 0.5 mg PO BID diphenhydramine HCl [Banophen] 50 mg capsule 100 mg PO BEDTIME prazosin 5 mg capsule 15 mg PO BEDTIME trazodone 100 mg tablet 200 mg PO BEDTIME omeprazole 20 mg capsule,delayed release(DR/EC) 20 mg PO Q OTHER DAY lithium carbonate 300 mg tablet 300 mg PO BID cholecalciferol (vitamin D3) [Vitamin D3] 25 mcg (1,000 unit) tablet 25 mcg PO DAILY calcium carbonate-vitamin D3 600 mg-10 mcg (400 unit) tablet 1 tab PO BID haloperidol 5 mg tablet 5 mg PO TID nicotine (polacrilex) 2 mg gum 2 mg PO Q2H PRN (Reason: Cravings) prazosin 1 mg capsule 1 mg PO BEDTIME haloperidol decanoate 100 mg/mL solution 75 mg IM Q28D fluticasone propionate 50 mcg/actuation spray,suspension 2 spray intranasal DAILY albuterol sulfate 90 mcg/actuation HFA aerosol inhaler 2 puff inhalation Q4-6H PRN (Reason: shortness of breath or wheezing) Qty: 6.7 0RF duloxetine 60 mg capsule,delayed release(DR/EC) 60 mg PO DAILY 30 Days Qty: 30 0RF Rx Instructions: take with 30mg capsule psyllium husk [Daily Fiber] 0.4 gram capsule 0.8 g PO BID zolpidem 10 mg tablet 10 mg PO BEDTIME multivitamin Tablet 1 tab PO DAILY cetirizine 10 mg tablet 10 mg PO DAILY lorazepam 1 mg Tablet 1 mg PO TID PRN (Reason: anxiety/agitation) Qty: 0 0RF budesonide-formoterol [Symbicort] 160-4.5 mcg/actuation HFA aerosol inhaler 2 puff INHALATION BID Discharge Orders: Discharge Order (Routine); Ordered 10/03/24 Ordered By: Maurizio Hernández Diet: Regular diet Activity on Discharge: As tolerated Stand Alone Forms: Patient Portal Discharge page, Community Support Print Language: [place] Care Plan Goals: Maintain mood and safe behaviors Take medications as prescribed Practice coping skills Continue with outpatient providers and reach out to them as needed Health Concerns: Mood stability and behaviors Plan of Treatment: Follow up with your PCP, psychiatric provider and other outpatient providers r egarding above concerns ECT scheduled for 10/13/2024 Take medications as prescribed: BuSpar discontinued as of 09/17/2024 Increased Cymbalta to 90 mg (take 30 mg capsule with 60 mg capsule) Added hydroxyzine 50 mg q.6 p.r.n. for mild anxiety Assessment: Risk assessment at time of discharge:? Patient was interviewed prior to discharge and found to be fully oriented and without any SI or HI. Patient has improved insight and judgment and wants to continue treatment. Patient is not in imminent risk of harm to self or others and has a safety plan that includes presenting to the closest ER or calling 911 if feeling unsafe.? Patient has been observed closely by nursing and unit staff throughout admission; patient has not engaged in any behaviors that suggest dangerousness to self or others and has demonstrated appropriate behaviors and impulse control
== END 2024-10-03 11:58 | disposition home or self-care (01) | DRG 751 ==
LOC: HO.ED 16:15 → HO.PM5 18:57
PROVIDERS: Physician Assistant Medical; Psychiatry & Neurology Psychiatry; Admitting Provider Social Worker; Emergency Provider Emergency Medicine; PCP Nurse Practitioner Family; Visit Provider Psychiatry & Neurology Psychiatry
PROC: GZB4ZZZ Other Electroconvulsive Therapy (ICD-10-PCS; CPT 90870; principal; 2024-09-22 08:00)
DX: F33.3 Major depressive disorder, recurrent, severe with psychotic symptoms (principal); R45.851 Suicidal ideations; F43.12 Post-traumatic stress disorder, chronic; J44.9 Chronic obstructive pulmonary disease, unspecified; F60.3 Borderline personality disorder; Z20.822 Contact with and (suspected) exposure to COVID-19; Z62.810 Personal history of physical and sexual abuse in childhood; Z91.52 Personal history of nonsuicidal self-harm; Z87.891 Personal history of nicotine dependence; Z79.51 Long term (current) use of inhaled steroids; Z79.899 Other long term (current) drug therapy
CPT/HCPCS: 36415; 73610; 80053; 80061; 80143; 80179; 80307; 81001; 81003; 81025; 83036; 84443; 85025; 87635; 90870; 99285; J0330; J1596; J1630; J1631; J1642; J1805; J2060; J2405; J2704; J7120; S9485

== ENCOUNTER 2024-09-18 18:45 | Outpatient (BNV) | payer OTHER, SELFPAY | END 2024-09-19 18:20 | PROVIDERS: Admitting Provider Social Worker; Emergency Provider Emergency Medicine; PCP Nurse Practitioner Family; Visit Provider Radiology Diagnostic Radiology | DX: S99.912A Unspecified injury of left ankle, initial encounter (principal) | CPT/HCPCS: 73610 ==

== ENCOUNTER → 2024-09-18 18:45 | Outpatient (BNV) | payer OTHER, SELFPAY | PROVIDERS: Admitting Provider Social Worker; Emergency Provider Emergency Medicine; PCP Nurse Practitioner Family; Visit Provider Psychiatry & Neurology Psychiatry | DX: F60.3 Borderline personality disorder (principal); F33.3 Major depressive disorder, recurrent, severe with psychotic symptoms; F43.12 Post-traumatic stress disorder, chronic | CPT/HCPCS: 99232 ==

== ENCOUNTER → 2024-09-18 18:45 | Outpatient (BNV) | payer OTHER, SELFPAY | PROVIDERS: Admitting Provider Social Worker; Emergency Provider Emergency Medicine; PCP Nurse Practitioner Family; Visit Provider Student in an Organized Health Care Education/Training Program | DX: Z01.818 Encounter for other preprocedural examination (principal) | CPT/HCPCS: 99429 ==

== ENCOUNTER → 2024-09-18 18:45 | Outpatient (BNV) | payer OTHER, SELFPAY | PROVIDERS: Admitting Provider Social Worker; Emergency Provider Emergency Medicine; PCP Nurse Practitioner Family; Visit Provider Psychiatry & Neurology Psychiatry | DX: F33.3 Major depressive disorder, recurrent, severe with psychotic symptoms (principal) | CPT/HCPCS: 90870 ==

== ENCOUNTER 2024-10-06 11:01 | Inpatient (IN) | payer OTHER, SELFPAY ==
--- NOTE | 2024-10-06 11:03 | ED.PSYCH ---
HPI - Psych General Stated Complaint: SI DENIES HI PER EMS Time Seen by Provider: 10/06/24 11:03 Related Data Home Medications ?Medication ?Instructions ?Recorded ?Confirmed benztropine 0.5 mg tablet 0.5 mg PO BID 04/30/24 09/18/24 clonidine HCl 0.1 mg tablet 0.1 mg PO TID 04/30/24 09/18/24 diphenhydramine HCl 50 mg capsule 100 mg PO BEDTIME insomnia 04/30/24 09/18/24 (Banophen) lithium carbonate 300 mg tablet 300 mg PO BID 04/30/24 09/18/24 omeprazole 20 mg capsule,delayed 20 mg PO Q OTHER DAY 04/30/24 09/18/24 release prazosin 5 mg capsule 15 mg PO BEDTIME 04/30/24 09/18/24 trazodone 100 mg tablet 200 mg PO BEDTIME insomnia 04/30/24 09/18/24 cetirizine 10 mg tablet 10 mg PO DAILY 05/17/24 09/18/24 multivitamin 1 tab PO DAILY 05/17/24 09/18/24 psyllium husk 0.4 gram capsule 0.8 g PO BID 05/17/24 09/18/24 (Daily Fiber) zolpidem 10 mg tablet 10 mg PO BEDTIME insomnia 05/17/24 09/18/24 calcium 600 mg (as 1 tab PO BID 07/29/24 09/18/24 carbonate)-vitamin D3 10 mcg (400 unit) tablet cholecalciferol (vitamin D3) 25 25 mcg PO DAILY 07/29/24 09/18/24 mcg (1,000 unit) tablet (Vitamin D3) fluticasone propionate 50 2 spray intranasal DAILY 08/15/24 09/18/24 mcg/actuation nasal spray,suspension haloperidol 5 mg tablet 5 mg PO TID 08/15/24 09/18/24 haloperidol decanoate 100 mg/mL 75 mg IM Q28D 08/15/24 09/18/24 intramuscular solution nicotine (polacrilex) 2 mg gum 2 mg PO Q2H PRN Cravings 08/15/24 09/18/24 prazosin 1 mg capsule 1 mg PO BEDTIME 08/15/24 09/18/24 budesonide-formoterol HFA 160 2 puff inhalation BID 08/17/24 09/18/24 mcg-4.5 mcg/actuation aerosol inhaler (Symbicort) Previous Rx's ?Medication ?Instructions ?Recorded lorazepam 1 mg tablet 1 mg PO TID PRN anxiety/agitation 05/22/24 #0 tabs albuterol sulfate 90 mcg/actuation 2 puff inhalation Q4-6H PRN 08/30/24 aerosol inhaler shortness of breath or wheezing #6.7 grams duloxetine 30 mg capsule,delayed 30 mg PO DAILY 30 days #30 caps 10/03/24 release duloxetine 60 mg capsule,delayed 60 mg PO DAILY 30 days #30 caps 10/03/24 release hydroxyzine HCl 50 mg tablet 50 mg PO Q6H PRN mild anxiety 30 10/03/24 days #90 tabs Allergies Allergy/AdvReac Type Severity Reaction Status Date / Time carbamazepine [From TEGRETOL] AdvReac Mild Nausea and Verified 09/18/24 15:29 Vomiting topiramate [From Topamax] AdvReac Mild Nausea and Verified 09/18/24 15:29 Vomiting PMFSH Past Medical History Medical History (Updated 09/21/24 @ 15:10 by JUANITO Olivo) Pre-op evaluation Schizoaffective disorder, depressive type Depression with suicidal ideation MDD (major depressive disorder), recurrent, severe, with psychosis Port-A-Cath in place History of electroconvulsive therapy COVID-19 COVID-19 Sprain of left foot Chronic post-traumatic stress disorder (PTSD) COPD (chronic obstructive pulmonary disease) Increased BMI GERD (gastroesophageal reflux disease) Recurrent major depression-severe Acute post-traumatic stress disorder Injury, self-inflicted Suicidal ideation Self-harming behavior Intentional self-harm Suicidal ideation Borderline personality disorder Schizoaffective disorder Adjustment disorder Asthma Depression Anxiety PTSD (post-traumatic stress disorder) Family History Family History Mother Brain cancer Other No family history of cardiac disease Social History Social History Household Members: Other Household Members Other:: group housemates Housing: Other Housing Other:: prison Do you presently have visiting nurse or other home services: No Unable to assess alcohol history related to: Unable to respond Alcohol intake: never Comment: 1:1 safety observation Patient Tobacco Use Status: Current everyday Tobacco user Tobacco use type: Cigarette Cigarette Packs Per Day: 0.5 Cigarettes Per Day: 8 Years Smoked: 20 e-Cigarette/Vaping Use: Former Use Second Hand Smoke Exposure: Yes Substance Use Type: Marijuana service: No Current occupation: rt handed Sexual orientation: Straight/Heterosexual Discharge Plan Discharge Prescriptions: No Action clonidine HCl 0.1 mg tablet 0.1 mg PO TID Rx Instructions: takes at 0800, 1400 and 2000 benztropine 0.5 mg tablet 0.5 mg PO BID diphenhydramine HCl [Banophen] 50 mg capsule 100 mg PO BEDTIME prazosin 5 mg capsule 15 mg PO BEDTIME trazodone 100 mg tablet 200 mg PO BEDTIME omeprazole 20 mg capsule,delayed release(DR/EC) 20 mg PO Q OTHER DAY lithium carbonate 300 mg tablet 300 mg PO BID cholecalciferol (vitamin D3) [Vitamin D3] 25 mcg (1,000 unit) tablet 25 mcg PO DAILY calcium carbonate-vitamin D3 600 mg-10 mcg (400 unit) tablet 1 tab PO BID haloperidol 5 mg tablet 5 mg PO TID nicotine (polacrilex) 2 mg gum 2 mg PO Q2H PRN (Reason: Cravings) prazosin 1 mg capsule 1 mg PO BEDTIME haloperidol decanoate 100 mg/mL solution 75 mg IM Q28D fluticasone propionate 50 mcg/actuation spray,suspension 2 spray intranasal DAILY albuterol sulfate 90 mcg/actuation HFA aerosol inhaler 2 puff inhalation Q4-6H PRN (Reason: shortness of breath or wheezing) Qty: 6.7 0RF duloxetine 30 mg Capsule,Delayed Release(Dr/Ec) 30 mg PO DAILY 30 Days Qty: 30 0RF Rx Instructions: take with 60mg capsule hydroxyzine HCl 50 mg Tablet 50 mg PO Q6H PRN (Reason: mild anxiety) 30 Days Qty: 90 0RF duloxetine 60 mg capsule,delayed release(DR/EC) 60 mg PO DAILY 30 Days Qty: 30 0RF Rx Instructions: take with 30mg capsule psyllium husk [Daily Fiber] 0.4 gram capsule 0.8 g PO BID zolpidem 10 mg tablet 10 mg PO BEDTIME multivitamin Tablet 1 tab PO DAILY cetirizine 10 mg tablet 10 mg PO DAILY lorazepam 1 mg Tablet 1 mg PO TID PRN (Reason: anxiety/agitation) Qty: 0 0RF budesonide-formoterol [Symbicort] 160-4.5 mcg/actuation HFA aerosol inhaler 2 puff INHALATION BID Print Language: Panamanian
--- NOTE | 2024-10-06 11:09 | ED_ITS ---
HPI - General Adult General Chief complaint: Psychiatric Symptoms Stated complaint: SI DENIES HI PER EMS Time Seen by Provider: 10/06/24 11:03 Source: patient and EMS Mode of arrival: EMS Limitations: no limitations History of Present Illness ED Provider: JUANITO Blankenship HPI narrative: This is a well-known 39-year-old female history of suicidal ideation, major depression, PTSD, borderline personality disorder, self-harm behavior, COPD, asthma, adjustment disorder, anxiety, GERD, obesity presenting to the emergency department with suicidal ideation with no particular plan. She reports today she was triggered by staff at her [facility] who were making fun of her after she told him that she had a dream that she was being abducted. She got angry she has scraped the [facility], they went and got her, she reported she wanted to harm herself and was brought into the hospital for further evaluation. She denies medical complaints at this time. No homicidal ideation. Denies drugs, alcohol, tobacco. Related Data Home Medications ?Medication ?Instructions ?Recorded ?Confirmed benztropine 0.5 mg tablet 0.5 mg PO BID 04/30/24 10/06/24 clonidine HCl 0.1 mg tablet 0.1 mg PO TID 04/30/24 10/06/24 diphenhydramine HCl 50 mg capsule 100 mg PO BEDTIME insomnia 04/30/24 10/06/24 (Banophen) lithium carbonate 300 mg tablet 300 mg PO BID 04/30/24 10/06/24 omeprazole 20 mg capsule,delayed 20 mg PO Q OTHER DAY 04/30/24 10/06/24 release prazosin 5 mg capsule 15 mg PO BEDTIME 04/30/24 10/06/24 trazodone 100 mg tablet 200 mg PO BEDTIME insomnia 04/30/24 10/06/24 cetirizine 10 mg tablet 10 mg PO DAILY 05/17/24 10/06/24 multivitamin 1 tab PO DAILY 05/17/24 10/06/24 psyllium husk 0.4 gram capsule 0.8 g PO BID 05/17/24 10/06/24 (Daily Fiber) zolpidem 10 mg tablet 10 mg PO BEDTIME insomnia 05/17/24 10/06/24 calcium 600 mg (as 1 tab PO BID 07/29/24 10/06/24 carbonate)-vitamin D3 10 mcg (400 unit) tablet cholecalciferol (vitamin D3) 25 25 mcg PO DAILY 07/29/24 10/06/24 mcg (1,000 unit) tablet (Vitamin D3) fluticasone propionate 50 2 spray intranasal DAILY 08/15/24 10/06/24 mcg/actuation nasal spray,suspension haloperidol 5 mg tablet 5 mg PO TID 08/15/24 10/06/24 haloperidol decanoate 100 mg/mL 75 mg IM Q28D 08/15/24 10/06/24 intramuscular solution nicotine (polacrilex) 2 mg gum 2 mg PO Q2H PRN Cravings 08/15/24 10/06/24 prazosin 1 mg capsule 1 mg PO BEDTIME 08/15/24 10/06/24 budesonide-formoterol HFA 160 2 puff inhalation BID 08/17/24 10/06/24 mcg-4.5 mcg/actuation aerosol inhaler (Symbicort) Previous Rx's ?Medication ?Instructions ?Recorded lorazepam 1 mg tablet 1 mg PO TID PRN anxiety/agitation 05/22/24 #0 tabs albuterol sulfate 90 mcg/actuation 2 puff inhalation Q4-6H PRN 08/30/24 aerosol inhaler shortness of breath or wheezing #6.7 grams duloxetine 60 mg capsule,delayed 60 mg PO DAILY 30 days #30 caps 10/03/24 release hydroxyzine HCl 50 mg tablet 50 mg PO Q6H PRN mild anxiety 30 10/03/24 days #90 tabs Allergies Allergy/AdvReac Type Severity Reaction Status Date / Time carbamazepine [From TEGRETOL] AdvReac Mild Nausea and Verified 10/06/24 11:42 Vomiting topiramate [From Topamax] AdvReac Mild Nausea and Verified 10/06/24 11:42 Vomiting Review of Systems 2 Review of Systems: Yes all other systems are reviewed and are negative PMFSH Past Medical History Attestation statement: The following information was validated with the patient. Source: old records reviewed and nursing notes reviewed Medical History (Updated 10/06/24 @ 11:12 by JUANITO Santos) Pre-op evaluation Schizoaffective disorder, depressive type Depression with suicidal ideation MDD (major depressive disorder), recurrent, severe, with psychosis Port-A-Cath in place History of electroconvulsive therapy COVID-19 COVID-19 Sprain of left foot Chronic post-traumatic stress disorder (PTSD) COPD (chronic obstructive pulmonary disease) Increased BMI GERD (gastroesophageal reflux disease) Recurrent major depression-severe Acute post-traumatic stress disorder Injury, self-inflicted Suicidal ideation Self-harming behavior Intentional self-harm Suicidal ideation Borderline personality disorder Schizoaffective disorder Adjustment disorder Asthma Depression Anxiety PTSD (post-traumatic stress disorder) Family History Family History Mother Brain cancer Other No family history of cardiac disease Social History Social History Household Members: Other Household Members Other:: group housemates Housing: Other Housing Other:: [facility] Do you presently have visiting nurse or other home services: No Unable to assess alcohol history related to: Unable to respond Alcohol intake: never Comment: 1:1 safety observation Patient Tobacco Use Status: Current everyday Tobacco user Tobacco use type: Cigarette Cigarette Packs Per Day: 0.5 Cigarettes Per Day: 8 Years Smoked: 20 Smoked in Last 30 Days: Yes e-Cigarette/Vaping Use: Former Use Second Hand Smoke Exposure: Yes Substance Use Type: Marijuana Patient : No service: No Current occupation: rt handed Sexual orientation: Straight/Heterosexual Physical Exam ED Vital Signs: Vital Signs - 24 hr 10/06/24 11:25 Temperature 98.2 F Pulse Rate 104 H Respiratory Rate 18 Blood Pressure 145/80 H Pulse Oximetry 95 Oxygen Delivery Method Room Air BMI result Body Mass Index 38.4 vss Appearance: Alert.? Oriented X3.? No acute distress.? Head: Normocephalic, atraumatic, no step-offs or deformities Eyes: Pupils equal, round and reactive to light.? Neck: Normal inspection.? Neck supple.? CVS: Normal heart rate and rhythm.? Pulses normal.? Respiratory: No respiratory distress.? Breath sounds normal.? Skin: Skin warm and dry.? Normal skin color.? Normal skin turgor.? + old self- inflicted wounds to bilateral wrist Extremities: No lower extremity edema.? No calf ttp. 5/5 strength to bilateral upper and lower extremities Back: No midline tenderness, no C-spine tenderness, full range of motion, no CVA tenderness bilaterally Neuro: Oriented X 3.? No motor deficit.? No sensory deficit. CN 2-12 intact Course Reevaluation(s) Reevaluation #1: CBC unremarkable. Chemistry no acute findings needing intervention. Urine toxicology positive for marijuana. [place] level low continue then you home meds. Negative ethanol. Time: 12:32 Reevaluation #2: Patient is much more calm. She is pending evaluation by care team. At this time patient to be placed into observation to allow more time to be evaluated by care team. At time observation started patient common cooperative no acute distress Time: 12:38 Medications Administered Discontinued Medications Generic Name Dose Route Start Last Admin Trade Name Leno PRN Reason Stop Dose Admin Lorazepam 1 mg 10/06/24 11:07 10/06/24 11:10 Lorazepam 1 Mg Tablet PO 10/06/24 11:08 1 mg ONCE ONE Administration Medical Decision Making Medical Decision Making [facility] Narrative: 39-year-old female presents with suicidal ideation, anxiety coming from her [facility]. No particular plan Physical exam benign patient is anxious appearing however. History and physical exam concerning for anxiety with suicidal ideation. Unlikely metabolic derangements. Plan medical clearance evaluation by care team. Will give patient Ativan to help calm her down. Differential Diagnosis Differential Diagnoses: The differential diagnosis associated with the presentation includes ( History and physical exam concerning for anxiety with suicidal ideation. Unlikely metabolic derangements.) Admission/Observation Consideration of admission/observation: Escalation of care including admission/observation considered Lab Data [facility] Lab Attestation statement: I reviewed the patient's lab results. 10/06/24 11:55 10/06/24 11:54 Labs: Lab Results 10/06/24 10/06/24 10/06/24 Range/Units 11:30 11:54 11:55 WBC 9.8 (4.8-10.8) X10*3/uL RBC 4.12 L (4.20-5.50) X10*6/uL Hgb 12.1 (12.0-16.0) g/dl Hct 36.1 L (37.0-47.0) % MCV 87.6 (80.0-98.0) fL MCH 29.4 (27.0-33.0) pg MCHC 33.5 (31.0-35.0) g/dl RDW 13.2 (11.0-16.0) % Plt Count 263 (160-400) X10*3/uL MPV 10.4 (9.4-12.3) fL Immature Gran % (Auto) 0.3 (0.0-0.4) % Neut % (Auto) 88.9 H (45-73) % Lymph % (Auto) 7.1 L (20-40) % [place] % (Auto) 3.5 (2-11) % Eos % (Auto) 0.0 (0-4) % Baso % (Auto) 0.2 (0-2) % Lymph # (Auto) 0.7 L (1.2-4.9) X10*3/uL [place] # (Auto) 0.3 (0.1-1.2) X10*3/uL Eos # (Auto) 0.0 (0.0-0.4) X10*3/uL Baso # (Auto) 0.0 (0.0-0.2) X10*3/uL Abs Immat Gran (auto) 0.03 (0.00-0.03) X10*3/uL Absolute Neuts (auto) 8.7 H (2.0-8.3) x10*3/uL Absolute Nucleated RBC 0.000 (0.0-0.012) X10*3/uL Nucleated RBC % (auto) 0.0 (0.0-0.2) /100WBC Sodium 139 (135-145) mmol/L Potassium 3.7 (3.3-5.1) mmol/L Chloride 108 (96-108) mmol/L Carbon Dioxide 23 (22-29) mmol/L Anion Gap 12 (12-20) BUN 11 (9-16) mg/dL Creatinine 0.75 (0.5-1.4) mg/dL Estim Creat Clear Calc 96.9 Estimated GFR > 60 Random Glucose 120 H (60-115) mg/dL Calcium 10.0 D (8.4-10.2) mg/dL Magnesium 1.9 (1.6-2.6) mg/dL Total Bilirubin 0.3 (0.0-1.0) mg/dL AST 19 (5-31) U/L ALT 15 (0-31) U/L Alkaline Phosphatase 59 (39-117) U/L Total Protein 7.6 (6.5-8.0) g/dL Albumin 4.2 (3.5-5.0) g/dL Urine Color Dark Yellow Urine Appearance Cloudy Urine pH 6.5 (5.0-9.0) Ur Specific [place] 1.025 (1.005-1.025) Urine Protein Negative (Neg-Trace) mg/dL Urine Glucose (UA) Negative (Negative) mg/dL Urine Ketones Trace (Negative) mg/dL Urine Blood Negative (Negative) Urine Nitrite Negative (Negative) Ur Leukocyte Esterase Small (1+) H (Negative) Urine RBC 0-2 (0-2) /HPF Urine WBC 6-10 H (0-5) /HPF Ur Squamous Epith Cells >20 (0-2) /HPF Urine Bacteria 3+ (None Seen) Hyaline Casts 0-2 (0-2) /LPF Urine Opiates Screen Not Detected (Not Detect) Ur Buprenorphine Scrn Not Detected (Not Detect) ng/mL Ur Oxycodone Screen Not Detected (Not Detect) ng/mL Urine Methadone Screen Not Detected (Not Detect) ng/mL Urine Fentanyl Screen Not Detected (Not Detect) Ur Barbiturates Screen Not Detected (Not Detect) Ur Phencyclidine Scrn Not Detected (Not Detect) Ur Amphetamines Screen Not Detected (Not Detect) U Benzodiazepines Scrn Not Detected (Not Detect) [place] 0.53 L (0.60-1.20) mmol/L Urine Cocaine Screen Not Detected (Not Detect) U Marijuana (THC) Screen POSITIVE H (Not Detect) Ethyl Alcohol < 10 mg/dL Independent Historian Clinical information obtained from an independent historian. History obtained from or confirmed by: EMS External Record Review External record reviewed: Inpatient record, Office record, Outpatient record, Prior outpatient labs, Prior outpatient radiology, Primary care record and Outside ED record Chronic Conditions Patient?s care impacted by: Other (see hpi ) Social Determinants Patient?s care significantly limited by Social Determinants of Health including: Inadequate housing, Low income, Alcoholism and drug addiction in family, Problems related to primary support group, Unemployment, Problems related to employment and Other Social Determinant of Health Critical Care Time Critical Care Time Critical Care Time: No Discharge Plan Discharge Clinical Impression: Anxiety, Depression, Suicidal ideation Patient Disposition: Still a Patient Prescriptions: No Action clonidine HCl 0.1 mg tablet 0.1 mg PO TID Rx Instructions: takes at 0800, 1400 and 2000 benztropine 0.5 mg tablet 0.5 mg PO BID diphenhydramine HCl [Banophen] 50 mg capsule 100 mg PO BEDTIME prazosin 5 mg capsule 15 mg PO BEDTIME trazodone 100 mg tablet 200 mg PO BEDTIME omeprazole 20 mg capsule,delayed release(DR/EC) 20 mg PO Q OTHER DAY lithium carbonate 300 mg tablet 300 mg PO BID cholecalciferol (vitamin D3) [Vitamin D3] 25 mcg (1,000 unit) tablet 25 mcg PO DAILY calcium carbonate-vitamin D3 600 mg-10 mcg (400 unit) tablet 1 tab PO BID haloperidol 5 mg tablet 5 mg PO TID nicotine (polacrilex) 2 mg gum 2 mg PO Q2H PRN (Reason: Cravings) prazosin 1 mg capsule 1 mg PO BEDTIME haloperidol decanoate 100 mg/mL solution 75 mg IM Q28D fluticasone propionate 50 mcg/actuation spray,suspension 2 spray intranasal DAILY albuterol sulfate 90 mcg/actuation HFA aerosol inhaler 2 puff inhalation Q4-6H PRN (Reason: shortness of breath or wheezing) Qty: 6.7 0RF hydroxyzine HCl 50 mg Tablet 50 mg PO Q6H PRN (Reason: mild anxiety) 30 Days Qty: 90 0RF duloxetine 60 mg capsule,delayed release(DR/EC) 60 mg PO DAILY 30 Days Qty: 30 0RF Rx Instructions: take with 30mg capsule psyllium husk [Daily Fiber] 0.4 gram capsule 0.8 g PO BID zolpidem 10 mg tablet 10 mg PO BEDTIME multivitamin Tablet 1 tab PO DAILY cetirizine 10 mg tablet 10 mg PO DAILY lorazepam 1 mg Tablet 1 mg PO TID PRN (Reason: anxiety/agitation) Qty: 0 0RF budesonide-formoterol [Symbicort] 160-4.5 mcg/actuation HFA aerosol inhaler 2 puff INHALATION BID Interventions: [place]-Suicide Risk Severity Scale Last Done: 10/06/24 12:25 Print Language: Vincentian
[2024-10-06] MEDS: LORazepam 1 MG TABLET PO ×2 (11:10→14:32)
[2024-10-06 11:25] VITALS: BP 145/80; PULSE 104; RESP 18; TEMP 36.8; O2SAT 95
[2024-10-06 11:37] VITALS: BP 148/95; PULSE 110; O2SAT 97; BMI 38.4
[2024-10-06 11:43] LABS: Appearance Urine Cloudy; Color Urine Dark Yellow; Glucose Urine UA Negative (Negative); Leukocyte Esterase Urine Small (1+) (Negative); Nitrite Urine Negative (Negative); PH 6.5 (5.0-9.0); Specific Gravity - Urine 1.025 (1.005-1.025); UMIC TRIGGER UACC YES; Urine Blood Negative (Negative); Urine Ketones Trace mg/dL (Negative); Urine Protein Negative (Neg-Trace)
[2024-10-06 11:52] LABS: Amphetamine Screen Urine Not Detected (Not Detect); Barbiturates, Urine Not Detected (Not Detect); Benzodiazepines Screen Urine Not Detected (Not Detect); Buprenorphine Scr Not Detected (Not Detect); Cannabinoid Screen Urine POSITIVE (Not Detect); Cocaine Screen Urine Not Detected (Not Detect); Fentanyl, urine Not Detected (Not Detect); Methadone Screen, Urine Not Detected (Not Detect); Opiate Screen Urine Not Detected (Not Detect); Oxycodone Screen Urine Not Detected (Not Detect); Phencyclidine Screen Urine Not Detected (Not Detect)
[2024-10-06 12:01] LABS: MANUAL DIFF FLAG NO
[2024-10-06 12:02] LABS: Basophils Percent Auto 0.2 % (0-2); Hematocrit 36.1 % (37.0-47.0); Hemoglobin 12.1 g/dl (12.0-16.0); Imm Gran Abs Auto 0.03 X10*3/uL (0.00-0.03); Imm Gran Pct Auto 0.3 % (0.0-0.4); Lymphocytes Absolute Auto 0.7 X10*3/uL (1.2-4.9); Lymphocytes Percent Auto 7.1 % (20-40); Mean Corpuscular HGB Conc 33.5 g/dl (31.0-35.0); Mean Corpuscular Hemoglobin 29.4 pg (27.0-33.0); Mean Corpuscular Volume 87.6 fL (80.0-98.0); Mean Platelet Volume 10.4 fL (9.4-12.3); Monocytes Absolute Auto 0.3 X10*3/uL (0.1-1.2); Monocytes Percent Auto 3.5 % (2-11); Neutrophils Absolute Auto 8.7 x10*3/uL (2.0-8.3); Neutrophils Percent Auto 88.9 % (45-73); Platelet Count 263 X10*3/uL (160-400); Red Blood Count 4.12 X10*6/uL (4.20-5.50); Red Cell Distribution Width 13.2 % (11.0-16.0); White Blood Count 9.8 X10*3/uL (4.8-10.8)
[2024-10-06 12:06] LABS: Bacteria Urine 3+ (None Seen); Hyaline Casts Urine 0-2 /LPF (0-2); RBC Urine 0-2 /HPF (0-2); Squamous Epithelial Cell Urine >20 /HPF (0-2); UACC Culture Trigger YES
[2024-10-06 12:10] LABS: Lithium 0.53 mmol/L (0.60-1.20)
[2024-10-06 12:14] LABS: Ethanol < 10 mg/dL
[2024-10-06 12:18] LABS: Alanine Aminotransferase 15 U/L (0-31); Albumin Level 4.2 g/dL (3.5-5.0); Alkaline Phosphatase 59 U/L (39-117); Anion Gap 12 (12-20); Aspartate Amino Transferase 19 U/L (5-31); Bilirubin Total 0.3 mg/dL (0.0-1.0); Blood Urea Nitrogen 11 mg/dL (9-16); Carbon Dioxide 23 mmol/L (22-29); Chloride 108 mmol/L (96-108); Creatinine Clr Calc Pharmacy 96.9; Estimated Glomerular Filt Rate > 60; Glucose Random 120 mg/dL (60-115); Magnesium 1.9 mg/dL (1.6-2.6); Potassium 3.7 mmol/L (3.3-5.1); Sodium 139 mmol/L (135-145); Total Protein 7.6 g/dL (6.5-8.0)
--- OUTSIDE RECORDS SUMMARY | 2024-10-06 13:34 | XMS_ITS | Clinical Summary ---
Author Organization [facility] Address [address] [place] [address] Care Team Providers Care Enrollment Consultant Name Role Phone Marcela Gaviria MD Primary Care Provider [phone] Allergies Active Allergy Reactions Criticality Noted Date Comments Carbamazepine Nausea And Vomiting 10/21/2005 Tegretol dizziness Topiramate Nausea And Vomiting 10/21/2005 Topamax Medications acetaminophen (TYLENOL) 500 mg tablet Take 1 Tablet by mouth every 6 hours as needed for Pain. 4 Active albuterol sulfate (ProAir RespiClick) 90 mcg/actuation aerosol powdr breath activated Inhale into the lungs. Active bacitracin 500 unit/gram ointment Apply twice daily to wounds 4 Active benztropine (COGENTIN) 0.5 mg tablet Take 1 Tablet by mouth 2 times daily. 2 Active cetirizine (ZyrTEC) 10 mg tablet Take 1 Tablet by mouth daily. 4 Active cloNIDine (CATAPRES) 0.1 mg tablet Take 1 Tablet by mouth. 0 Active diclofenac (VOLTAREN) 1 % topical gel Apply 0.5 g topically 2 times daily as needed (forleft knee pain). 3 Active diphenhydrAMINE (BENADRYL) 50 mg capsule Take 2 Capsules by mouth. 2 Active DULoxetine (CYMBALTA) [address] capsule 3 Active fluticasone propion-salmete roL (Advair HFA) 230-21 mcg/actuation inhaler Inhale 1 Puff into the lungs 2 times daily. 3 Active haloperidoL (HALDOL) 5 mg tablet Take 1 Tab by mouth 2 times daily as needed. 9 Active haloperidol decanoate (HALDOL DECANOATE) 100 mg/mL injection 3 Active hydrOXYzine pamoate (VISTARIL) 50 mg capsule Take 50 mg by mouth 3 times daily as needed. Active lithium (LITHOBID) 300 mg CR tablet Take 600 mg by mouth at bedtime. Active LORazepam (ATIVAN) 1 mg tablet Take 1 mg by mouth 3 times daily. Active omeprazole (PriLOSEC) [address] capsule Take 1 Capsule by mouth daily. 4 Active prazosin (MINIPRESS) 1 mg capsule 3 Active prazosin (MINIPRESS) 5 mg capsule Take 5 mg by mouth at bedtime. Active traZODone (DESYREL) 100 mg tablet 3 Active zolpidem (AMBIEN) 10 mg tablet 3 Active cholecalciferol (VITAMIN D-3) 25 mcg (1,000 unit) tablet Take 1 Tablet by mouth daily. 4 Active fluticasone propion/salmete rol (ADVAIR HFA INHL) Inhale into the lungs. Active polyethylene glycol (PEG) 17 gram/dose oral powder polyethylene glycol (MiraLax) 17 GM/SCOOP powder Take 17 g by mouth daily as needed for Constipation 4 Active Active Problems Problem Noted Date Diagnosed [...] Administration Dates Next Due DTP 08/03/1991, 8,03/21/1987,01/24,1986 [id number] (Pentacel) 2mo to less than 5yo 11/21/1988 [...] 12mo and older 03/03/1995,07/26/1987 OPV 08/03/1991, 8,03/21/1987,01/24,1986 NuoDB SARS-CoV-2 COVID-19, mRNA, LNP-S, preservative free 11/10/2020,10/28/2020 [...] us 2) infection Borderline personality disor thomas ([facility] 03/07/2010 DX:Borderline personality di sorder ([facility]) Drug abuse ([facility]) 05/16/2010 DX:Drug abu se ([facility]) Irritable bowel syndrome with diarrhea 12/27/2015 DX:Irritable bowel syndrome with diarrhea Allergic rhinitis 03/29/2007 DX:Allergic rh initis Asthma 01/28/2006 DX:Asthma; COMME NT: never intubated BMI 45.0-49.9, adult ([facility]) 01/06/2017 D X:BMI 45.0-49.9, adult ([facility]) Chronic constipation 01/30/2013 DX:Chronic constipation Depression 03/17/2006 [...] drink = 0.6 oz pur e alcohol) Comments Unknown Sex and Gender Information Value Date Recorded Sex Assigned at Not on file Legal Sex Female 2:21 AM EST Gender Identity Not on file Sexual Orientation [...] Vaccines Completed 11/21/1988 IPV Vaccines Completed 08/03/1991, 0403/1989, 04/24/1988, Additional history exists MMR Vaccines Completed [...] on patient's age to complete this topic Meningococcal B Vacine Aged Out No lo nger eligible based on patient's age to complete [...] Health Maintenance Results * Depression Screening (11/02/2023) [facility] Depression Screening abstracted [facility] Provider HEALTH MAINTENANCE Final Result * Lipid panel (10/07/2022) [facility] LDL/HDL Ratio 3 0 - 4 Triglycerides 50 0 - 150 mg/dL Cholesterol 150 0 - 200 mg/dL HDL 55 >=40 mg/dL LDL Cholesterol 85 0 - 100 mg/dL Blood Venous blood specimen / Unknown [facility] Provider LAB BLOOD ORDERABLES Rose Marie l Result * HIV Screening (02/03/2021) [facility] HIV Screening abstracted [facility] Provider HEALTH MAINTENANCE Final Result * Hepatitis C Screening (02/03/2021) [facility] Hepatitis C Screening abstracted [facility] Provider HEALTH MAINTENANCE Final Result * Cervical Cancer Screening: HPV (01/21/2021) Cervical Cancer Screening: HPV positive, abstracted us Historical Provider HEALTH MAINTENANCE Final Result from Last 3 Months or Most Recently Relevant to Health Maintenance Care Teams Enrollment Consultant Relationship Specialty Start Date End Date Marcela Gaviria MD [address] [place] [id number] PCP - General Internal Medicine 12/24/20
--- NOTE | 2024-10-06 14:00 | ECG_ITS ---
Test Reason : MEDICAL CLEARANCE Blood Pressure : */* mmHG Vent. Rate : 85 BPM Atrial Rate : 85 BPM P-R Int : 150 ms QRS Dur : 68 ms QT Int : 360 ms P-R-T Axes : 67 71 65 degrees QTcB Int : 428 ms Normal sinus rhythm with sinus arrhythmia Normal ECG When compared with ECG of 24-Aug-2024 16:04, No significant change was found Referred By: Milad Blankenship Electronically Signed By: LIZET ANN
--- NOTE | 2024-10-06 14:04 | PC.NURSE ---
Pt has been increasingly calmer since arrival. Now reports feeling much better b/c she knows she'll be admitted to .
[2024-10-06 14:10] LABS: UPreg QC Valid YES; Urine Pregnancy NEGATIVE (NEGATIVE)
[2024-10-06 14:12] VITALS: BP 145/80
[2024-10-06] MEDS: cloNIDine HCL 0.1 MG TABLET PO ×2 (14:12→22:09)
[2024-10-06] MEDS: HaloperidoL 5 MG TABLET PO ×2 (14:12→22:12)
--- NOTE | 2024-10-06 14:32 | PC.NURSE ---
anxious about weather it's really true that she'll go to [facility]. Reassurance isn't very helpful. Patient given ativan.
[2024-10-06] MEDS: hydrOXYzine HCL 50 MG TABLET PO (17:54)
[2024-10-06 18:16] VITALS: BP 140/90; PULSE 85; RESP 16; TEMP 36.3; O2SAT 96
[2024-10-06 18:17] VITALS: BMI 38.8
--- NOTE | 2024-10-06 18:44 | PC.NURSE ---
pt arrived at 1802 from [facility] [place] ED via wheelchair and has an accepted CV. Skin/safety check performed, vitals obtained and menus completed. Pt placed on 1:1 for safety due to reports of urge to self harm. Admission to be completed by oncoming RN.
[2024-10-06 19:53] VITALS: BP 114/61; PULSE 88; RESP 16; TEMP 36.6; O2SAT 98
[2024-10-06] MEDS: Benztropine Mesylate 0.5 MG TABLET PO (22:09)
[2024-10-06] MEDS: Calcium + Vitamin D 250 MG TABLET 500 MG PO (22:09)
[2024-10-06] MEDS: diphenhydrAMINE HCL 25 MG CAPSULE 100 MG PO (22:10)
[2024-10-06] MEDS: Zolpidem Tartrate 5 MG TABLET 10 MG PO (22:11)
[2024-10-06] MEDS: traZODone HCL 100 MG TABLET 200 MG PO (22:11)
[2024-10-06] MEDS: Prazosin HCL 1 MG CAPSULE PO (22:11)
[2024-10-06] MEDS: Lithium Carbonate 300 MG CAPSULE PO (22:12)
[2024-10-06] MEDS: Prazosin HCL 5 MG CAPSULE 15 MG PO (22:12)
[2024-10-07 08:00] VITALS: BP 166/93; PULSE 118; RESP 18; TEMP 37.1; O2SAT 96
[2024-10-07 08:36] VITALS: BP 166/93
[2024-10-07] MEDS: Loratadine 10 MG TABLET PO (08:36)
[2024-10-07] MEDS: DULoxetine HCl 60 MG CAPSULE.DR PO (08:36)
[2024-10-07] MEDS: HaloperidoL 5 MG TABLET PO ×3 (08:36→20:40)
[2024-10-07] MEDS: Cholecalciferol (Vitamin D3) 25 MCG TABLET PO (08:36)
[2024-10-07] MEDS: Lithium Carbonate 300 MG CAPSULE PO (08:36)
[2024-10-07] MEDS: cloNIDine HCL 0.1 MG TABLET PO ×3 (08:36→20:40)
[2024-10-07] MEDS: Omeprazole 20 MG CAPSULE.DR PO (08:36)
[2024-10-07] MEDS: Benztropine Mesylate 0.5 MG TABLET PO ×2 (08:36→20:38)
[2024-10-07] MEDS: Calcium + Vitamin D 250 MG TABLET 500 MG PO ×2 (08:37→20:38)
[2024-10-07] MEDS: Multivitamin TABLET 1 TAB PO (08:37)
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
[2024-10-07] MEDS: LORazepam 1 MG TABLET PO ×2 (09:25→18:41)
[2024-10-07] MEDS: hydrOXYzine HCL 25 MG TABLET PO (09:25)
[2024-10-07 14:33] VITALS: BP 117/69
[2024-10-07] MEDS: Lithium Carbonate 300 MG CAPSULE 600 MG PO (16:17)
[2024-10-07] MEDS: hydrOXYzine HCL 50 MG TABLET PO (18:41)
[2024-10-07 19:45] VITALS: BP 128/69; PULSE 83; TEMP 36.9; O2SAT 96
[2024-10-07] MEDS: Prazosin HCL 5 MG CAPSULE 15 MG PO (20:38)
[2024-10-07] MEDS: traZODone HCL 100 MG TABLET 200 MG PO (20:38)
[2024-10-07] MEDS: Prazosin HCL 1 MG CAPSULE PO (20:39)
[2024-10-07] MEDS: diphenhydrAMINE HCL 25 MG CAPSULE 100 MG PO (20:39)
[2024-10-07] MEDS: traZODone HCL 50 MG TABLET PO (20:40)
[2024-10-07] MEDS: Zolpidem Tartrate 5 MG TABLET 10 MG PO (20:40)
[2024-10-08] MEDS: Fluticasone/Vilanterol 200/25 BLST.W.DEV 1 PUFF INHALE (08:55)
[2024-10-08] MEDS: Fluticasone Propionate Nasal 16 GM SPRAY 2 SPRAY NOSTRIL-B (08:55)
[2024-10-08] MEDS: Benztropine Mesylate 0.5 MG TABLET PO ×2 (08:56→20:57)
[2024-10-08] MEDS: Multivitamin TABLET 1 TAB PO (08:56)
[2024-10-08] MEDS: HaloperidoL 5 MG TABLET PO ×3 (08:56→20:57)
[2024-10-08] MEDS: Calcium + Vitamin D 250 MG TABLET 500 MG PO ×2 (08:56→20:51)
[2024-10-08] MEDS: Cholecalciferol (Vitamin D3) 25 MCG TABLET PO (08:56)
[2024-10-08] MEDS: DULoxetine HCl 60 MG CAPSULE.DR PO (08:56)
[2024-10-08] MEDS: Psyllium seed 3.7 GM PACKET PO (08:56)
[2024-10-08] MEDS: Loratadine 10 MG TABLET PO (08:56)
[2024-10-08 10:09] VITALS: BP 159/72
[2024-10-08] MEDS: cloNIDine HCL 0.1 MG TABLET PO ×3 (10:09→20:56)
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
[2024-10-08] MEDS: LORazepam 1 MG TABLET PO ×2 (10:59→16:36)
[2024-10-08 15:58] VITALS: BP 122/72
[2024-10-08 20:00] VITALS: BP 113/57; PULSE 94; TEMP 36.4; O2SAT 98
[2024-10-08] MEDS: diphenhydrAMINE HCL 25 MG CAPSULE 100 MG PO (20:50)
[2024-10-08] MEDS: Lithium Carbonate ER 450 MG TABLET.ER 900 MG PO (20:52)
[2024-10-08 20:53] VITALS: BP 113/57
[2024-10-08] MEDS: Prazosin HCL 1 MG CAPSULE PO (20:53)
[2024-10-08] MEDS: Zolpidem Tartrate 5 MG TABLET 10 MG PO (20:53)
[2024-10-08 20:54] VITALS: BP 113/57
[2024-10-08] MEDS: Prazosin HCL 5 MG CAPSULE 15 MG PO (20:54)
[2024-10-08 20:56] VITALS: BP 113/57
[2024-10-08] MEDS: traZODone HCL 100 MG TABLET 200 MG PO (20:56)
[2024-10-09] MEDS: Omeprazole 20 MG CAPSULE.DR PO (07:35)
[2024-10-09 08:00] VITALS: BP 133/84; PULSE 88; RESP 18; TEMP 36.6; O2SAT 96
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
[2024-10-09] MEDS: Cholecalciferol (Vitamin D3) 25 MCG TABLET PO (10:22)
[2024-10-09] MEDS: Fluticasone/Vilanterol 200/25 BLST.W.DEV 1 PUFF INHALE (10:22)
[2024-10-09] MEDS: Fluticasone Propionate Nasal 16 GM SPRAY 2 SPRAY NOSTRIL-B (10:22)
[2024-10-09] MEDS: DULoxetine HCl 60 MG CAPSULE.DR PO (10:22)
[2024-10-09] MEDS: hydrOXYzine HCL 50 MG TABLET PO ×2 (10:22→20:57)
[2024-10-09] MEDS: LORazepam 1 MG TABLET PO ×2 (10:23→16:26)
[2024-10-09] MEDS: Loratadine 10 MG TABLET PO (10:23)
[2024-10-09] MEDS: HaloperidoL 5 MG TABLET PO ×3 (10:23→20:57)
[2024-10-09] MEDS: Calcium + Vitamin D 250 MG TABLET 500 MG PO ×2 (10:23→20:55)
[2024-10-09] MEDS: Benztropine Mesylate 0.5 MG TABLET PO ×2 (10:23→20:55)
[2024-10-09] MEDS: cloNIDine HCL 0.1 MG TABLET PO ×3 (10:23→20:55)
[2024-10-09] MEDS: Multivitamin TABLET 1 TAB PO (10:24)
[2024-10-09] MEDS: hydrOXYzine HCL 25 MG TABLET PO ×2 (11:28→20:57)
[2024-10-09 19:58] VITALS: BP 109/59; PULSE 84; RESP 18; TEMP 36.6; O2SAT 98
[2024-10-09] MEDS: diphenhydrAMINE HCL 25 MG CAPSULE 100 MG PO (20:55)
[2024-10-09] MEDS: Prazosin HCL 1 MG CAPSULE PO (20:56)
[2024-10-09] MEDS: Zolpidem Tartrate 5 MG TABLET 10 MG PO (20:56)
[2024-10-09] MEDS: Prazosin HCL 5 MG CAPSULE 15 MG PO (20:56)
[2024-10-09] MEDS: Lithium Carbonate ER 450 MG TABLET.ER 900 MG PO (20:57)
[2024-10-09] MEDS: traZODone HCL 100 MG TABLET 200 MG PO (20:57)
--- NOTE | 2024-10-10 09:50 | PC.NURSE ---
pt sleeping during morning med pass. Pt asked TW to come back later . Will reproach.
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
[2024-10-10 10:52] VITALS: BP 120/71; PULSE 87; RESP 16; TEMP 36.4; O2SAT 95
[2024-10-10 11:05] VITALS: BP 120/71
[2024-10-10] MEDS: Benztropine Mesylate 0.5 MG TABLET PO ×2 (11:05→20:21)
[2024-10-10] MEDS: DULoxetine HCl 60 MG CAPSULE.DR PO (11:05)
[2024-10-10] MEDS: Cholecalciferol (Vitamin D3) 25 MCG TABLET PO (11:05)
[2024-10-10] MEDS: cloNIDine HCL 0.1 MG TABLET PO ×3 (11:05→20:21)
[2024-10-10] MEDS: Calcium + Vitamin D 250 MG TABLET 500 MG PO ×2 (11:05→20:21)
[2024-10-10] MEDS: Multivitamin TABLET 1 TAB PO (11:05)
[2024-10-10] MEDS: Loratadine 10 MG TABLET PO (11:06)
[2024-10-10] MEDS: HaloperidoL 5 MG TABLET PO ×3 (11:06→20:21)
[2024-10-10] MEDS: hydrOXYzine HCL 25 MG TABLET PO (11:35)
[2024-10-10] MEDS: hydrOXYzine HCL 50 MG TABLET PO ×2 (11:35→20:21)
[2024-10-10] MEDS: LORazepam 1 MG TABLET PO ×2 (13:52→20:21)
[2024-10-10 14:42] VITALS: BP 116/66
[2024-10-10 19:59] VITALS: BP 114/61; PULSE 79; RESP 16; TEMP 36.4; O2SAT 96
[2024-10-10] MEDS: diphenhydrAMINE HCL 25 MG CAPSULE 100 MG PO (20:20)
[2024-10-10] MEDS: Lithium Carbonate ER 450 MG TABLET.ER 900 MG PO (20:20)
[2024-10-10] MEDS: traZODone HCL 100 MG TABLET 200 MG PO (20:21)
[2024-10-10] MEDS: Prazosin HCL 1 MG CAPSULE PO (20:21)
[2024-10-10] MEDS: Prazosin HCL 5 MG CAPSULE 15 MG PO (20:21)
[2024-10-10] MEDS: Zolpidem Tartrate 5 MG TABLET 10 MG PO (20:21)
[2024-10-11] VITALS (7 sets, daily range): BP systolic 103–129; BP diastolic 53–69; PULSE 72–77; RESP 18; TEMP 36.4–37.1; O2SAT 97–99
[2024-10-11] MEDS: Benztropine Mesylate 0.5 MG TABLET PO ×2 (08:45→21:01)
[2024-10-11] MEDS: HaloperidoL 5 MG TABLET PO ×3 (08:45→21:00)
[2024-10-11] MEDS: Calcium + Vitamin D 250 MG TABLET 500 MG PO ×2 (08:45→21:01)
[2024-10-11] MEDS: Loratadine 10 MG TABLET PO (08:45)
[2024-10-11] MEDS: Cholecalciferol (Vitamin D3) 25 MCG TABLET PO (08:45)
[2024-10-11] MEDS: DULoxetine HCl 60 MG CAPSULE.DR PO (08:45)
[2024-10-11] MEDS: Multivitamin TABLET 1 TAB PO (08:45)
[2024-10-11] MEDS: Fluticasone/Vilanterol 200/25 BLST.W.DEV 1 PUFF INHALE (08:45)
[2024-10-11] MEDS: Fluticasone Propionate Nasal 16 GM SPRAY 2 SPRAY NOSTRIL-B (08:45)
[2024-10-11] MEDS: Omeprazole 20 MG CAPSULE.DR PO (08:45)
[2024-10-11] MEDS: cloNIDine HCL 0.1 MG TABLET PO ×2 (11:17→15:44)
[2024-10-11] MEDS: Milk of Magnesia 30 ML ORAL.SUSP PO (13:20)
[2024-10-11] MEDS: LORazepam 1 MG TABLET PO (13:20)
--- NOTE | 2024-10-11 15:17 | HO.ECT-CONS ---
History of Present Illness Data of Consult Service Date: 10/11/24 Primary Care Provider: None Physician HPI Reason for consult: ECT Risk Stratification Pt is a 39-year-old female with a PMH significant for COPD/asthma overlap syndrome, GERD, PTSD, schizoaffective disorder, and borderline personality disorder admitted to [facility] for increasing depression with vague SI without a plan. Consult placed to hospitalist services for ECT risk stratification. Pt has undergone ECT many times in the past without complications, most recently inpatient earlier in the month on 09/22/2024 and most recently outpatient 10 days ago on 09/29/2024. Pt irritable and tired at time of interview and exam but cooperative. Pt with known asthma/COPD overlap syndrome on a rescue inhaler inhaler which she uses occasionally. Currently denies any acute respiratory complaints. Denies known history of TBI, stroke, intracranial bleed, intracranial mass, or seizure disorder. No history of bleeding disorders, CAD, or previous difficulties with anesthesia. Currently reports being tired, but otherwise no acute medical complaints at this time. No fever, chills, nausea, vomiting, abdominal pain. Denies chest pain/pressure, palpitations. No shortness a breath or difficulty breathing. Denies headache or acute vision changes. EKG from ED presentation on 10/06/2024 reviewed, showing normal rhythm with sinus arrhythmia and QTc WNL at 428 but without any signs of ischemic changes, similar to prior. Review of Systems Review of Systems: Pt has no acute medical complaints at this time. [facility] Medical History Schizoaffective disorder, depressive type Depression with suicidal ideation MDD (major depressive disorder), recurrent, severe, with psychosis Port-A-Cath in place History of electroconvulsive therapy COVID-19 COVID-19 Sprain of left foot Chronic post-traumatic stress disorder (PTSD) COPD (chronic obstructive pulmonary disease) Increased BMI GERD (gastroesophageal reflux disease) Recurrent major depression-severe Acute post-traumatic stress disorder Injury, self-inflicted Suicidal ideation Self-harming behavior Intentional self-harm Suicidal ideation Borderline personality disorder Schizoaffective disorder Adjustment disorder Asthma Depression Anxiety PTSD (post-traumatic stress disorder) Family History Mother Brain cancer Other No family history of cardiac disease Social History Household Members: Other Household Members Other:: group housemates Housing: Other Housing Other:: [facility] Do you presently have visiting nurse or other home services: No Unable to assess alcohol history related to: Unable to respond Alcohol intake: never Comment: 1:1 safety observation Patient Tobacco Use Status: Former Tobacco user Tobacco use type: Cigarette Cigarette Packs Per Day: 0.5 Cigarettes Per Day: 8 Years Smoked: 20 Smoked in Last 30 Days: No e-Cigarette/Vaping Use: Never Used Patient Interested in Nicotine Replacement: No Patient Given Instructions on How to Stop Smoking: No Second Hand Smoke Exposure: No Use of substances other than those prescribed or required for medical reasons: Yes Substance Use Type: Marijuana Substance Use Frequency: Chronic Longstanding Last Used Substance: Days (ago) Currently Displaying Signs/Symptoms of Drug Intoxication Withdrawal: No Any prior treatment program specific to substance use: No Advance Directives: No Advance Directives Information Provided: No Do you have thoughts of harming others: None Do you have a plan to hurt others: No Plan Recently lost weight without trying: No Eating poorly because of decreased appetite: No Nutrition Risks: No Nutritional Risk Patient : No : No Poor oral hygiene: No service: No Current occupation: rt handed Sexual orientation: Straight/Heterosexual Meds Allergies Allergy/AdvReac Type Severity Reaction Status Date / Time carbamazepine [From TEGRETOL] AdvReac Mild Nausea and Verified 10/06/24 11:42 Vomiting topiramate [From Topamax] AdvReac Mild Nausea and Verified 10/06/24 11:42 Vomiting Active Medications: Current Medications Acetaminophen (Acetaminophen 325 Mg Tablet) 650 mg PO Q6H PRN PRN Reason: Headache/Pain, Scale 1-10 Al Hydroxide/Mg Hydroxide (Magnesium Hydrox/Alum Hydrox 30 Ml Oral.Susp) 30 ml PO Q6H PRN PRN Reason: Heartburn/Nausea Albuterol Sulfate (Albuterol Sulfate 90 Mcg 8 Gm Inhaler) 2 puff INHALE Q4H PRN PRN Reason: shortness of breath or wheezing Benztropine Mesylate (Benztropine Mesylate 0.5 Mg Tablet) 0.5 mg PO BID [facility] Last Admin: 10/11/24 08:45 Dose: 0.5 mg Calcium Carbonate/Cholecalciferol (Calcium + Vitamin D 250 Mg Tablet) 500 mg PO BID [facility] Last Admin: 10/11/24 08:45 Dose: 500 mg Clonidine HCl (Clonidine Hcl 0.1 Mg Tablet) 0.1 mg PO TID [facility]; Protocol Last Admin: 10/11/24 11:17 Dose: 0.1 mg Diphenhydramine HCl (Diphenhydramine Hcl 25 Mg Capsule) 100 mg PO BEDTIME [facility] Last Admin: 10/10/24 20:20 Dose: 100 mg Duloxetine HCl (Duloxetine Hcl 60 Mg Capsule.Dr) 60 mg PO DAILY [facility] Last Admin: 10/11/24 08:45 Dose: 60 mg Fluticasone Propionate (Fluticasone Propionate Nasal 16 Gm [place]) 2 spray NOSTRIL-B DAILY [facility] Last Admin: 10/11/24 08:45 Dose: 2 spray Fluticasone/Vilanterol (Fluticasone/Vilanterol 200/25 Blst.W.Dev) 1 puff INHALE RDAILY [facility] Last Admin: 10/11/24 08:45 Dose: 1 puff Haloperidol (Haloperidol 5 Mg Tablet) 5 mg PO TID [facility] Last Admin: 10/11/24 08:45 Dose: 5 mg Haloperidol Decanoate (Haloperidol Decanoate 50 Mg/Ml Vial) 75 mg IM Q28D [facility] Hydroxyzine HCl (Hydroxyzine Hcl 50 Mg Tablet) 50 mg PO Q6H PRN PRN Reason: mild anxiety Last Admin: 10/10/24 20:21 Dose: 50 mg Hydroxyzine HCl (Hydroxyzine Hcl 25 Mg Tablet) 25 mg PO Q6H PRN PRN Reason: mild anxiety Last Admin: 10/10/24 11:35 Dose: 25 mg [place] Carbonate (Floral Carbonate Er 450 Mg Tablet.Er) 900 mg PO BEDTIME [facility] Last Admin: 10/10/24 20:20 Dose: 900 mg Loratadine (Loratadine 10 Mg Tablet) 10 mg PO DAILY [facility] Last Admin: 10/11/24 08:45 Dose: 10 mg Lorazepam (Lorazepam 1 Mg Tablet) 1 mg PO TID PRN PRN Reason: anxiety/agitation Last Admin: 10/11/24 13:20 Dose: 1 mg Magnesium Hydroxide (Milk Of Magnesia 30 Ml Oral.Susp) 30 ml PO DAILY PRN PRN Reason: Constipation Last Admin: 10/11/24 13:20 Dose: 30 ml Multivitamins/Vitamin C (Multivitamin Tablet) 1 tab PO DAILY [facility] Last Admin: 10/11/24 08:45 Dose: 1 tab Nicotine (Nicotine 21 Mg Patch.Td24) 21 mg TRANSDERMA DAILY PRN PRN Reason: smoking cessation Nicotine Polacrilex (Nicotine Polacrilex 2 Mg Gum) 2 mg BUCCAL Q2H PRN PRN Reason: Cravings Nicotine Polacrilex (Nicotine Polacrilex 2 Mg Gum) 4 mg BUCCAL Q2H PRN PRN Reason: Nicotine Cravings Omeprazole (Omeprazole 20 Mg Capsule.Dr) 20 mg PO Q2D@0630 [facility] Last Admin: 10/11/24 08:45 Dose: 20 mg Prazosin HCl (Prazosin Hcl 1 Mg Capsule) 1 mg PO BEDTIME [facility]; Protocol Last Admin: 10/10/24 20:21 Dose: 1 mg Prazosin HCl (Prazosin Hcl 5 Mg Capsule) 15 mg PO BEDTIME [facility]; Protocol Last Admin: 10/10/24 20:21 Dose: 15 mg Psyllium Hydrophilic Mucilloid (Psyllium Seed 3.7 Gm Packet) 3.7 gm PO BID [facility] Last Admin: 10/11/24 08:49 Dose: Not Given Trazodone HCl (Trazodone Hcl 100 Mg Tablet) 200 mg PO BEDTIME [facility] Last Admin: 10/10/24 20:21 Dose: 200 mg Trazodone HCl (Trazodone Hcl 50 Mg Tablet) 50 mg PO BEDTIME MRX1 PRN PRN Reason: Insomnia Last Admin: 10/07/24 20:40 Dose: 50 mg Vitamin D (Cholecalciferol (Vitamin D3) 25 Mcg Tablet) 25 mcg PO DAILY [facility] Last Admin: 10/11/24 08:45 Dose: 25 mcg Zolpidem Tartrate (Zolpidem Tartrate 5 Mg Tablet) 10 mg PO BEDTIME [facility] Last Admin: 10/10/24 20:21 Dose: 10 mg Home Medications ?Medication ?Instructions ?Recorded ?Confirmed ?Last Taken ?Type benztropine 0.5 mg tablet 0.5 mg PO BID 04/30/24 10/06/24 10/05/24 History clonidine HCl 0.1 mg tablet 0.1 mg PO TID 04/30/24 10/06/24 10/05/24 History diphenhydramine HCl 50 mg capsule 100 mg PO BEDTIME insomnia 04/30/24 10/06/24 10/05/24 History (Banophen) lithium carbonate 300 mg tablet 300 mg PO BID 04/30/24 10/06/24 10/05/24 History omeprazole 20 mg capsule,delayed 20 mg PO Q OTHER DAY 04/30/24 10/06/24 10/05/24 History release prazosin 5 mg capsule 15 mg PO BEDTIME 04/30/24 10/06/24 10/05/24 History trazodone 100 mg tablet 200 mg PO BEDTIME insomnia 04/30/24 10/06/24 10/05/24 History cetirizine 10 mg tablet 10 mg PO DAILY 05/17/24 10/06/24 10/05/24 History multivitamin 1 tab PO DAILY 05/17/24 10/06/24 10/05/24 History psyllium husk 0.4 gram capsule 0.8 g PO BID 05/17/24 10/06/24 10/05/24 History (Daily Fiber) zolpidem 10 mg tablet 10 mg PO BEDTIME insomnia 05/17/24 10/06/24 10/05/24 History calcium 600 mg (as 1 tab PO BID 07/29/24 10/06/24 10/05/24 History carbonate)-vitamin D3 10 mcg (400 unit) tablet cholecalciferol (vitamin D3) 25 25 mcg PO DAILY 07/29/24 10/06/24 10/05/24 History mcg (1,000 unit) tablet (Vitamin D3) fluticasone propionate 50 2 spray intranasal DAILY 08/15/24 10/06/24 10/05/24 History mcg/actuation nasal spray,suspension haloperidol 5 mg tablet 5 mg PO TID 08/15/24 10/06/24 10/05/24 History haloperidol decanoate 100 mg/mL 75 mg IM Q28D 08/15/24 10/06/24 10/05/24 History intramuscular solution nicotine (polacrilex) 2 mg gum 2 mg PO Q2H PRN Cravings 08/15/24 10/06/24 10/05/24 History prazosin 1 mg capsule 1 mg PO BEDTIME 08/15/24 10/06/24 10/05/24 History budesonide-formoterol HFA 160 2 puff inhalation BID 08/17/24 10/06/24 10/05/24 History mcg-4.5 mcg/actuation aerosol inhaler (Symbicort) Physical Exam Vital Signs and Narrative: Vital Signs: Last Vital Signs Temp 97.5 F 10/10/24 19:59 Pulse 79 10/10/24 19:59 Resp 18 10/11/24 08:00 BP 122/64 10/11/24 11:17 Pulse Ox 96 10/10/24 19:59 O2 Del Method Room Air 10/10/24 19:59 BMI result Body Mass Index 38.8 General: AOx3, no acute distress Resp: CTA bilaterally CVS: S1, S2, RRR GI: NT, no distention Skin: Warm, dry Neuro: Cranial nerves II-XII grossly intact bilaterally. Motor grossly intact bilaterally Extremities: No edema Psych: Irritable but cooperative. Flat affect Results Labs 10/06/24 11:55 10/06/24 11:54 Assessment and Plan (1) Pre-op evaluation: Status: Acute Plan Pt is a 39-year-old female with a PMH significant for COPD/asthma overlap syndrome, GERD, PTSD, schizoaffective disorder, and borderline personality disorder admitted to Psychiatric unit for increasing depression with vague SI without a plan. Consult placed to hospitalist services for ECT risk stratification. ECT pre-op evaluation Patient has undergone ECT multiple times in the past without incident, most recently outpatient 10 days ago Review of prior EKGs without ischemic changes or prolonged QTc; currently denies chest pain/pressure or palpitations No previous known difficulties with anesthesia Revised cardiac risk index: 0 points Based on patient history and exam, there are no medical contraindications to patient undergoing ECT Thank you for allowing us to participate in the care of this patient. Signing off at this time. Please re-consult if any acute complaints or issues arise.
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
[2024-10-11] MEDS: Prazosin HCL 5 MG CAPSULE 15 MG PO (20:59)
[2024-10-11] MEDS: Prazosin HCL 1 MG CAPSULE PO (20:59)
[2024-10-11] MEDS: traZODone HCL 100 MG TABLET 200 MG PO (21:00)
[2024-10-11] MEDS: Lithium Carbonate ER 450 MG TABLET.ER 900 MG PO (21:00)
[2024-10-11] MEDS: diphenhydrAMINE HCL 25 MG CAPSULE 100 MG PO (21:00)
[2024-10-11] MEDS: Zolpidem Tartrate 5 MG TABLET 10 MG PO (21:01)
[2024-10-11] MEDS: Haloperidol Lactate 5 MG/ML VIAL IM (21:51)
[2024-10-11] MEDS: LORazepam 2 MG/ML VIAL IM (21:51)
--- NOTE | 2024-10-12 00:36 | PC.NURSE ---
Note: late documentation. At approximately 2100, this commercial real estate underwriter assessed this patient and gave HS medications. The patient was 1:1 during this time. The patient admitted to during assessment but had denied any plan, and told this commercial real estate underwriter she would ask for help if she wanted to act. Approximately 25 minutes later, the patient approached the medication room with her 1:1 with her. She told this commercial real estate underwriter calmly I want to kill myself. I want it to be over. I want to smash my head. She then leaned back against the common room/kitchen wall, against the plexiglass. She brought her head back against the plexiglass, and staff put their hand between Stella's head and the plexiglass. She then began to pull her own hair. Staff was able to get Stella to sit on a chair in the hallway and de-escalate her. Stella told this commercial real estate underwriter I want my shot. I want haldol and ativan. I'll be fine with that. The patient wanted to be away from her roommate at that time. This commercial real estate underwriter and staff were able to get vital signs from Stella, as she told us she was comfortable with that. VS obtained. [place] text to Dr Hernández by this commercial real estate underwriter led to stat orders for 5 MG Haldol IM and 2 MG IM, which were administered at approximately 2150. Stella was calm while vitals were obtained and while this commercial real estate underwriter texted Dr Hernández; this commercial real estate underwriter did not note any head banging or self harm hair pulling at that time. Stella remained patient while medications were obtained, although she was weepy. She was compliant when this commercial real estate underwriter asked her which arm she would like to get her IMs; she requested that this commercial real estate underwriter give the injections in her left deltoid. Stella was communicative during this entire episode, clearly requesting what medications would help her and accommodating staff with vital signs and medication administration. She relaxed after her injection and laid in her bed with her 1:1 observing.
[2024-10-12 08:00] VITALS: BP 114/70; PULSE 64; RESP 16; TEMP 36.9; O2SAT 98
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
[2024-10-12] MEDS: Calcium + Vitamin D 250 MG TABLET 500 MG PO ×2 (10:57→20:24)
[2024-10-12] MEDS: Multivitamin TABLET 1 TAB PO (10:58)
[2024-10-12] MEDS: cloNIDine HCL 0.1 MG TABLET PO ×3 (10:58→20:25)
[2024-10-12] MEDS: DULoxetine HCl 60 MG CAPSULE.DR PO (10:58)
[2024-10-12] MEDS: HaloperidoL 5 MG TABLET PO ×3 (10:58→20:24)
[2024-10-12] MEDS: Benztropine Mesylate 0.5 MG TABLET PO ×2 (10:58→20:24)
[2024-10-12] MEDS: LORazepam 1 MG TABLET PO ×2 (10:58→18:03)
[2024-10-12] MEDS: Cholecalciferol (Vitamin D3) 25 MCG TABLET PO (10:58)
[2024-10-12] MEDS: Loratadine 10 MG TABLET PO (10:59)
[2024-10-12 17:16] VITALS: BP 116/70
--- NOTE | 2024-10-12 18:46 | PC.NURSE ---
Per Dr Silva, ok to give Crystal lorazepam at 1800 tonight even though its after 1700 the night before ECT.
[2024-10-12 19:50] VITALS: BP 112/62; PULSE 70; RESP 18; TEMP 36.8; O2SAT 96
[2024-10-12] MEDS: Prazosin HCL 1 MG CAPSULE PO (20:24)
[2024-10-12] MEDS: diphenhydrAMINE HCL 25 MG CAPSULE 100 MG PO (20:24)
[2024-10-12] MEDS: Prazosin HCL 5 MG CAPSULE 15 MG PO (20:24)
[2024-10-12] MEDS: traZODone HCL 100 MG TABLET 200 MG PO (20:24)
[2024-10-13] VITALS (14 sets, daily range): BP systolic 95–137; BP diastolic 60–95; PULSE 78–94; RESP 12–16; TEMP 35.7–36.7; O2SAT 97–99; BMI 38.8
[2024-10-13] MEDS: traZODone HCL 50 MG TABLET PO (01:19)
[2024-10-13] MEDS: hydrOXYzine HCL 50 MG TABLET PO (01:19)
--- NOTE | 2024-10-13 07:31 | MHC.SHP ---
Pre-Procedural Eval Section A - 24 Hr Update-Section A only Date of Service: 10/13/24 The patient is an INPATIENT: Yes Changes since office visit: Yes Patient answered all questions; No Cold of Flu in the past 2 weeks, No New Medical Problems and No Changes in Medication The patient has been examined within 24 hours of the surgical procedure. The History & Physical has been completed within 30 days and I have reviewed it.: Yes Section B - Complete if H&P > 30 days Chief Complaint: Decompensation Allergies: Allergies Allergy/AdvReac Type Severity Reaction Status Date / Time carbamazepine [From TEGRETOL] AdvReac Mild Nausea and Verified 10/06/24 11:42 Vomiting topiramate [From Topamax] AdvReac Mild Nausea and Verified 10/06/24 11:42 Vomiting Plan I have reviewed the history and physical and performed a pertinent physical examination on my patient. No changes have occurred unless specified. Time Spent With Patient Time: Total time managing care of this patient today ____ minutes.
--- NOTE | 2024-10-13 08:26 | HO.ANESPROP2 ---
HPI - Anesthesia Eval Consult details Narrative: 39 yo female patient for ECT PMFSH Active Problems Active Problems: All Active Problems (Updated 10/12/24 @ 01:17 by JUANITO Olivo) Pre-op evaluation (Acute) MDD (major depressive disorder), recurrent, severe, with psychosis (Acute) Depression (Acute) Osteoarthritis of right knee (Acute) Chronic post-traumatic stress disorder (PTSD) (Chronic) Borderline personality disorder (Chronic) Auditory hallucinations (Acute) Port-A-Cath in place (Acute) Intentional self-harm (Acute) COPD (chronic obstructive pulmonary disease) (Acute) Asthma (Acute) Adjustment disorder (Acute) Anxiety (Acute) Injury of ligament of right knee (Acute) Sprain of anterior cruciate ligament of right knee (Acute) Hernia (Chronic) Increased BMI (Acute) GERD (gastroesophageal reflux disease) (Acute) Past Medical History Medical History Schizoaffective disorder, depressive type Depression with suicidal ideation MDD (major depressive disorder), recurrent, severe, with psychosis Port-A-Cath in place History of electroconvulsive therapy COVID-19 COVID-19 Sprain of left foot Chronic post-traumatic stress disorder (PTSD) COPD (chronic obstructive pulmonary disease) Increased BMI GERD (gastroesophageal reflux disease) Recurrent major depression-severe Acute post-traumatic stress disorder Injury, self-inflicted Suicidal ideation Self-harming behavior Intentional self-harm Suicidal ideation Borderline personality disorder Schizoaffective disorder Adjustment disorder Asthma Depression Anxiety PTSD (post-traumatic stress disorder) Family History Family History Mother Brain cancer Other No family history of cardiac disease Family history of problems with anesthesia: No Surgical History History of Problems with Anesthesia: No Social History Social History Household Members: Other Household Members Other:: group housemates Housing: Other Housing Other:: [facility] [place] [facility] Do you presently have visiting nurse or other home services: No Unable to assess alcohol history related to: Unable to respond Alcohol intake: never Comment: 1:1 safety observation Patient Tobacco Use Status: Former Tobacco user Tobacco use type: Cigarette Cigarette Packs Per Day: 0.5 Cigarettes Per Day: 8 Years Smoked: 20 Smoked in Last 30 Days: No e-Cigarette/Vaping Use: Never Used Patient Interested in Nicotine Replacement: No Patient Given Instructions on How to Stop Smoking: No Second Hand Smoke Exposure: No Use of substances other than those prescribed or required for medical reasons: Yes Substance Use Type: Marijuana Substance Use Frequency: Chronic Longstanding Last Used Substance: Days (ago) Currently Displaying Signs/Symptoms of Drug Intoxication Withdrawal: No Any prior treatment program specific to substance use: No Advance Directives: No Advance Directives Information Provided: No Do you have thoughts of harming others: None Do you have a plan to hurt others: No Plan Recently lost weight without trying: No Eating poorly because of decreased appetite: No Nutrition Risks: No Nutritional Risk Patient : No : No Poor oral hygiene: No service: No Current occupation: rt handed Sexual orientation: Straight/Heterosexual Meds Allergies Allergy/AdvReac Type Severity Reaction Status Date / Time carbamazepine [From TEGRETOL] AdvReac Mild Nausea and Verified 10/06/24 11:42 Vomiting topiramate [From Topamax] AdvReac Mild Nausea and Verified 10/06/24 11:42 Vomiting Active Medications: Current Medications Acetaminophen (Acetaminophen 325 Mg Tablet) 650 mg PO Q6H PRN PRN Reason: Headache/Pain, Scale 1-10 Al Hydroxide/Mg Hydroxide (Magnesium Hydrox/Alum Hydrox 30 Ml Oral.Susp) 30 ml PO Q6H PRN PRN Reason: Heartburn/Nausea Albuterol Sulfate (Albuterol Sulfate 90 Mcg 8 Gm Inhaler) 2 puff INHALE Q4H PRN PRN Reason: shortness of breath or wheezing Benztropine Mesylate (Benztropine Mesylate 0.5 Mg Tablet) 0.5 mg PO BID [facility] Last Admin: 10/12/24 20:24 Dose: 0.5 mg Calcium Carbonate/Cholecalciferol (Calcium + Vitamin D 250 Mg Tablet) 500 mg PO BID [facility] Last Admin: 10/12/24 20:24 Dose: 500 mg Clonidine HCl (Clonidine Hcl 0.1 Mg Tablet) 0.1 mg PO TID [facility]; Protocol Last Admin: 10/12/24 20:25 Dose: 0.1 mg Diphenhydramine HCl (Diphenhydramine Hcl 25 Mg Capsule) 100 mg PO BEDTIME [facility] Last Admin: 10/12/24 20:24 Dose: 100 mg Duloxetine HCl (Duloxetine Hcl 60 Mg Capsule.Dr) 60 mg PO DAILY [facility] Last Admin: 10/12/24 10:58 Dose: 60 mg Fluticasone Propionate (Fluticasone Propionate Nasal 16 Gm [place]) 2 spray NOSTRIL-B DAILY [facility] Last Admin: 10/12/24 11:08 Dose: Not Given Fluticasone/Vilanterol (Fluticasone/Vilanterol 200/25 Blst.W.Dev) 1 puff INHALE RDAILY [facility] Last Admin: 10/12/24 11:06 Dose: Not Given Haloperidol (Haloperidol 5 Mg Tablet) 5 mg PO TID [facility] Last Admin: 10/12/24 20:24 Dose: 5 mg Haloperidol Decanoate (Haloperidol Decanoate 50 Mg/Ml Vial) 75 mg IM Q28D [facility] Hydroxyzine HCl (Hydroxyzine Hcl 50 Mg Tablet) 50 mg PO Q6H PRN PRN Reason: mild anxiety Last Admin: 10/13/24 01:19 Dose: 50 mg [place] Carbonate ([place] Carbonate Er 450 Mg Tablet.Er) 900 mg PO BEDTIME [facility] Last Admin: 10/11/24 21:00 Dose: 900 mg Loratadine (Loratadine 10 Mg Tablet) 10 mg PO DAILY [facility] Last Admin: 10/12/24 10:59 Dose: 10 mg Lorazepam (Lorazepam 1 Mg Tablet) 1 mg PO TID PRN PRN Reason: anxiety/agitation Last Admin: 10/12/24 18:03 Dose: 1 mg Magnesium Hydroxide (Milk Of Magnesia 30 Ml Oral.Susp) 30 ml PO DAILY PRN PRN Reason: Constipation Last Admin: 10/11/24 13:20 Dose: 30 ml Multivitamins/Vitamin C (Multivitamin Tablet) 1 tab PO DAILY [facility] Last Admin: 10/12/24 10:58 Dose: 1 tab Nicotine (Nicotine 21 Mg Patch.Td24) 21 mg TRANSDERMA DAILY PRN PRN Reason: smoking cessation Nicotine Polacrilex (Nicotine Polacrilex 2 Mg Gum) 4 mg BUCCAL Q2H PRN PRN Reason: Nicotine Cravings Omeprazole (Omeprazole 20 Mg Capsule.) 20 mg PO Q2D@0630 [facility] Last Admin: 10/11/24 08:45 Dose: 20 mg Prazosin HCl (Prazosin Hcl 1 Mg Capsule) 1 mg PO BEDTIME [facility]; Protocol Last Admin: 10/12/24 20:24 Dose: 1 mg Prazosin HCl (Prazosin Hcl 5 Mg Capsule) 15 mg PO BEDTIME [facility]; Protocol Last Admin: 10/12/24 20:24 Dose: 15 mg Psyllium Hydrophilic Mucilloid (Psyllium Seed 3.7 Gm Packet) 3.7 gm PO BID [facility] Last Admin: 10/12/24 20:30 Dose: Not Given Trazodone HCl (Trazodone Hcl 100 Mg Tablet) 200 mg PO BEDTIME [facility] Last Admin: 10/12/24 20:24 Dose: 200 mg Trazodone HCl (Trazodone Hcl 50 Mg Tablet) 50 mg PO BEDTIME MRX1 PRN PRN Reason: Insomnia Last Admin: 10/13/24 01:19 Dose: 50 mg Vitamin D (Cholecalciferol (Vitamin D3) 25 Mcg Tablet) 25 mcg PO DAILY [facility] Last Admin: 10/12/24 10:58 Dose: 25 mcg Zolpidem Tartrate (Zolpidem Tartrate 5 Mg Tablet) 10 mg PO BEDTIME [facility] Last Admin: 10/12/24 20:30 Dose: Not Given Home Medications ?Medication ?Instructions ?Recorded ?Confirmed ?Last Taken ?Type benztropine 0.5 mg tablet 0.5 mg PO BID 04/30/24 10/06/24 10/05/24 History clonidine HCl 0.1 mg tablet 0.1 mg PO TID 04/30/24 10/06/24 10/05/24 History diphenhydramine HCl 50 mg capsule 100 mg PO BEDTIME insomnia 04/30/24 10/06/24 10/05/24 History (Banophen) lithium carbonate 300 mg tablet 300 mg PO BID 04/30/24 10/06/24 10/05/24 History omeprazole 20 mg capsule,delayed 20 mg PO Q OTHER DAY 04/30/24 10/06/24 10/05/24 History release prazosin 5 mg capsule 15 mg PO BEDTIME 04/30/24 10/06/24 10/05/24 History trazodone 100 mg tablet 200 mg PO BEDTIME insomnia 04/30/24 10/06/24 10/05/24 History cetirizine 10 mg tablet 10 mg PO DAILY 05/17/24 10/06/24 10/05/24 History multivitamin 1 tab PO DAILY 05/17/24 10/06/24 10/05/24 History psyllium husk 0.4 gram capsule 0.8 g PO BID 05/17/24 10/06/24 10/05/24 History (Daily Fiber) zolpidem 10 mg tablet 10 mg PO BEDTIME insomnia 05/17/24 10/06/24 10/05/24 History calcium 600 mg (as 1 tab PO BID 07/29/24 10/06/24 10/05/24 History carbonate)-vitamin D3 10 mcg (400 unit) tablet cholecalciferol (vitamin D3) 25 25 mcg PO DAILY 07/29/24 10/06/24 10/05/24 History mcg (1,000 unit) tablet (Vitamin D3) fluticasone propionate 50 2 spray intranasal DAILY 08/15/24 10/06/24 10/05/24 History mcg/actuation nasal spray,suspension haloperidol 5 mg tablet 5 mg PO TID 08/15/24 10/06/24 10/05/24 History haloperidol decanoate 100 mg/mL 75 mg IM Q28D 08/15/24 10/06/24 10/05/24 History intramuscular solution nicotine (polacrilex) 2 mg gum 2 mg PO Q2H PRN Cravings 08/15/24 10/06/24 10/05/24 History prazosin 1 mg capsule 1 mg PO BEDTIME 08/15/24 10/06/24 10/05/24 History budesonide-formoterol HFA 160 2 puff inhalation BID 08/17/24 10/06/24 10/05/24 History mcg-4.5 mcg/actuation aerosol inhaler (Symbicort) Exam Height,Weight and Vital Signs: Height 4 ft 11 in Weight 87.2 kg Last Vital Signs Temp 98.1 F 10/13/24 08:06 Pulse 92 10/13/24 08:24 Resp 15 10/13/24 08:24 BP 128/80 10/13/24 08:24 Pulse Ox 99 10/13/24 08:24 O2 Del Method Room Air 10/13/24 08:24 Pertinent Lab Results Pertinent Lab Results: Laboratory Tests 10/06/24 10/06/24 10/06/24 11:30 11:54 11:55 WBC 9.8 RBC 4.12 L Hgb 12.1 Hct 36.1 L MCV 87.6 MCH 29.4 MCHC 33.5 RDW 13.2 Plt Count 263 MPV 10.4 Immature Gran % (Auto) 0.3 Neut % (Auto) 88.9 H Lymph % (Auto) 7.1 L [place] % (Auto) 3.5 Eos % (Auto) 0.0 Baso % (Auto) 0.2 Lymph # (Auto) 0.7 L [place] # (Auto) 0.3 Eos # (Auto) 0.0 Baso # (Auto) 0.0 Abs Immat Gran (auto) 0.03 Absolute Neuts (auto) 8.7 H Absolute Nucleated RBC 0.000 Nucleated RBC % (auto) 0.0 Sodium 139 Potassium 3.7 Chloride 108 Carbon Dioxide 23 Anion Gap 12 BUN 11 Creatinine 0.75 Estim Creat Clear Calc 96.9 Estimated GFR > 60 Random Glucose 120 H Calcium 10.0 D Magnesium 1.9 Total Bilirubin 0.3 AST 19 ALT 15 Alkaline Phosphatase 59 Total Protein 7.6 Albumin 4.2 Urine Color Dark Yellow Urine Appearance Cloudy Urine pH 6.5 Ur Specific [place] 1.025 Urine Protein Negative Urine Glucose (UA) Negative Urine Ketones Trace Urine Blood Negative Urine Nitrite Negative Ur Leukocyte Esterase Small (1+) H Urine RBC 0-2 Urine WBC 6-10 H Ur Squamous Epith Cells >20 Urine Bacteria 3+ Hyaline Casts 0-2 Urine Test NEGATIVE Urine Opiates Screen Not Detected Ur Buprenorphine Scrn Not Detected Ur Oxycodone Screen Not Detected Urine Methadone Screen Not Detected Urine Fentanyl Screen Not Detected Ur Barbiturates Screen Not Detected Ur Phencyclidine Scrn Not Detected Ur Amphetamines Screen Not Detected U Benzodiazepines Scrn Not Detected [place] 0.53 L Urine Cocaine Screen Not Detected U Marijuana (THC) Screen POSITIVE H Ethyl Alcohol < 10 Airway Mallampati Class: III TM Dist: >3cm Neck ROM: Full Loose/Missing/Broken Teeth: Yes (Poor dentition. Many missing and broken teeth. Denies loose teeth) Heart: RRR Lungs: CTAB Assessment and Plan Assessment Anesthesia Assessment: Anesthesia Plan Discussed and Chart Reviewed Final Anesthetic Review Family History of Problems with Anesthesia: No History of Problems with Anesthesia: No NPO: Yes ASA Class: III Final Preanesthetic Review: No Changes in Pt Med Stat, Meds/Allgs Chart Reviewed, Consent Obtained/Reviewed and Anes Risks/Benef Reviewed Patient Risk: Intermediate Procedure Risk: Intermediate Assessment/Block/Sedation in : Assess/Block/Sedation- Anesthetic Plan Anesthetic Plan: GA
[2024-10-13] MEDS: LORazepam 2 MG/ML VIAL 1 MG IVPUSH (08:54)
--- NOTE | 2024-10-13 09:03 | HO.ECTPROC ---
ECT Procedure Note Diagnosis/Treatment Date of Service: 10/13/24 Diagnosis: Schizoaffective Disorder and Other (ptsd) Treatment: Maintenance Interval Clinical Notes: pt cont to feel maint helpful but unclear. completed bt as usual tolerated well ambien was held Time: Total time managing care of this patient today ____ minutes. ECT Settings Device: THYMATRON DGx Electrode Placement: Bitemporal Program/Pulse Width: 0.50 Energy Percent: 100 Seizure Duration By EEG (in seconds): 18 Medications Administration General Anesthetic: Etomidate (14) Muscle Relaxant: Succinylcholine Airway Management Airway Management: Bag Mask Ventilation Treatment Recommendations No Changes Recommended: No change Pt Tolerated Procedure w/o Issue: Yes
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
[2024-10-13] MEDS: Cholecalciferol (Vitamin D3) 25 MCG TABLET PO (09:38)
[2024-10-13] MEDS: Benztropine Mesylate 0.5 MG TABLET PO ×2 (09:38→20:53)
[2024-10-13] MEDS: Loratadine 10 MG TABLET PO (09:38)
[2024-10-13] MEDS: Omeprazole 20 MG CAPSULE.DR PO (09:38)
[2024-10-13] MEDS: HaloperidoL 5 MG TABLET PO ×3 (09:38→20:54)
[2024-10-13] MEDS: cloNIDine HCL 0.1 MG TABLET PO ×3 (09:39→20:54)
[2024-10-13] MEDS: Calcium + Vitamin D 250 MG TABLET 500 MG PO ×2 (09:39→20:56)
[2024-10-13] MEDS: DULoxetine HCl 60 MG CAPSULE.DR PO (09:39)
[2024-10-13] MEDS: Fluticasone/Vilanterol 200/25 BLST.W.DEV 1 PUFF INHALE (09:41)
[2024-10-13] MEDS: Fluticasone Propionate Nasal 16 GM SPRAY 2 SPRAY NOSTRIL-B (09:41)
[2024-10-13] MEDS: Multivitamin TABLET 1 TAB PO (09:59)
[2024-10-13] MEDS: LORazepam 1 MG TABLET PO (18:21)
[2024-10-13] MEDS: Prazosin HCL 1 MG CAPSULE PO (20:52)
[2024-10-13] MEDS: Zolpidem Tartrate 5 MG TABLET 10 MG PO (20:53)
[2024-10-13] MEDS: diphenhydrAMINE HCL 25 MG CAPSULE 100 MG PO (20:53)
[2024-10-13] MEDS: Lithium Carbonate ER 450 MG TABLET.ER 900 MG PO (20:56)
[2024-10-13] MEDS: traZODone HCL 100 MG TABLET 200 MG PO (20:57)
[2024-10-13] MEDS: Prazosin HCL 5 MG CAPSULE 15 MG PO (20:57)
[2024-10-14 08:00] VITALS: BP 111/67; PULSE 57; RESP 16; TEMP 36.8; O2SAT 98
[2024-10-14] MEDS: Loratadine 10 MG TABLET PO (10:27)
[2024-10-14] MEDS: Cholecalciferol (Vitamin D3) 25 MCG TABLET PO (10:27)
[2024-10-14] MEDS: HaloperidoL 5 MG TABLET PO ×3 (10:27→20:30)
[2024-10-14] MEDS: hydrOXYzine HCL 50 MG TABLET PO ×2 (10:27→16:18)
[2024-10-14] MEDS: LORazepam 1 MG TABLET PO ×3 (10:27→21:41)
[2024-10-14] MEDS: Benztropine Mesylate 0.5 MG TABLET PO ×2 (10:28→20:27)
[2024-10-14] MEDS: cloNIDine HCL 0.1 MG TABLET PO ×3 (10:28→20:29)
[2024-10-14] MEDS: Multivitamin TABLET 1 TAB PO (10:28)
[2024-10-14] MEDS: Calcium + Vitamin D 250 MG TABLET 500 MG PO ×2 (10:28→20:30)
[2024-10-14] MEDS: DULoxetine HCl 60 MG CAPSULE.DR PO (10:28)
[2024-10-14] MEDS: Fluticasone/Vilanterol 200/25 BLST.W.DEV 1 PUFF INHALE (10:35)
[2024-10-14 16:15] VITALS: BP 118/70
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
[2024-10-14 20:00] VITALS: BP 123/66; PULSE 67; TEMP 36.8; O2SAT 98
[2024-10-14] MEDS: diphenhydrAMINE HCL 25 MG CAPSULE 100 MG PO (20:24)
[2024-10-14 20:27] VITALS: BP 123/66
[2024-10-14] MEDS: Prazosin HCL 5 MG CAPSULE 15 MG PO (20:27)
[2024-10-14 20:28] VITALS: BP 123/66
[2024-10-14] MEDS: Prazosin HCL 1 MG CAPSULE PO (20:28)
[2024-10-14] MEDS: Zolpidem Tartrate 5 MG TABLET 10 MG PO (20:28)
[2024-10-14 20:29] VITALS: BP 123/66
[2024-10-14] MEDS: traZODone HCL 100 MG TABLET 200 MG PO (20:29)
[2024-10-14] MEDS: Lithium Carbonate ER 450 MG TABLET.ER 900 MG PO (20:30)
[2024-10-14] MEDS: traZODone HCL 50 MG TABLET PO (21:41)
[2024-10-15 09:30] LABS: Lithium 1.07 mmol/L (0.60-1.20)
[2024-10-15] MEDS: Benztropine Mesylate 0.5 MG TABLET PO ×2 (09:50→20:27)
[2024-10-15] MEDS: Omeprazole 20 MG CAPSULE.DR PO (09:50)
[2024-10-15] MEDS: DULoxetine HCl 60 MG CAPSULE.DR PO (09:50)
[2024-10-15] MEDS: LORazepam 1 MG TABLET PO ×2 (09:50→15:41)
[2024-10-15] MEDS: Calcium + Vitamin D 250 MG TABLET 500 MG PO ×2 (09:50→20:15)
[2024-10-15 09:51] VITALS: BP 122/80
[2024-10-15] MEDS: Multivitamin TABLET 1 TAB PO (09:51)
[2024-10-15] MEDS: hydrOXYzine HCL 50 MG TABLET PO ×2 (09:51→15:40)
[2024-10-15] MEDS: Cholecalciferol (Vitamin D3) 25 MCG TABLET PO (09:51)
[2024-10-15] MEDS: Fluticasone/Vilanterol 200/25 BLST.W.DEV 1 PUFF INHALE (09:51)
[2024-10-15] MEDS: cloNIDine HCL 0.1 MG TABLET PO ×3 (09:51→20:16)
[2024-10-15] MEDS: Loratadine 10 MG TABLET PO (09:51)
[2024-10-15] MEDS: HaloperidoL 5 MG TABLET PO ×3 (09:51→20:16)
[2024-10-15 15:41] VITALS: BP 112/80
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
[2024-10-15 20:00] VITALS: BP 109/53; PULSE 96; TEMP 36.7; O2SAT 96
[2024-10-15] MEDS: traZODone HCL 100 MG TABLET 200 MG PO (20:15)
[2024-10-15 20:16] VITALS: BP 109/51
[2024-10-15] MEDS: diphenhydrAMINE HCL 25 MG CAPSULE 100 MG PO (20:17)
[2024-10-15 20:19] VITALS: BP 109/53
[2024-10-15] MEDS: Prazosin HCL 1 MG CAPSULE PO (20:19)
[2024-10-15 20:26] VITALS: BP 109/53
[2024-10-15] MEDS: Prazosin HCL 5 MG CAPSULE 15 MG PO (20:26)
[2024-10-16] VITALS (11 sets, daily range): BP systolic 117–146; BP diastolic 60–86; PULSE 85–100; RESP 12–18; TEMP 36.4–37.1; O2SAT 95–100
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
--- NOTE | 2024-10-16 14:23 | P.CONAN_ITS ---
[facility] Active Problems Active Problems: All Active Problems Pre-op evaluation (Acute) MDD (major depressive disorder), recurrent, severe, with psychosis (Acute) Depression (Acute) Osteoarthritis of right knee (Acute) Chronic post-traumatic stress disorder (PTSD) (Chronic) Borderline personality disorder (Chronic) Auditory hallucinations (Acute) Port-A-Cath in place (Acute) Intentional self-harm (Acute) COPD (chronic obstructive pulmonary disease) (Acute) Asthma (Acute) Adjustment disorder (Acute) Anxiety (Acute) Injury of ligament of right knee (Acute) Sprain of anterior cruciate ligament of right knee (Acute) Hernia (Chronic) Increased BMI (Acute) GERD (gastroesophageal reflux disease) (Acute) Past Medical History Medical History Schizoaffective disorder, depressive type Depression with suicidal ideation MDD (major depressive disorder), recurrent, severe, with psychosis Port-A-Cath in place History of electroconvulsive therapy COVID-19 COVID-19 Sprain of left foot Chronic post-traumatic stress disorder (PTSD) COPD (chronic obstructive pulmonary disease) Increased BMI GERD (gastroesophageal reflux disease) Recurrent major depression-severe Acute post-traumatic stress disorder Injury, self-inflicted Suicidal ideation Self-harming behavior Intentional self-harm Suicidal ideation Borderline personality disorder Schizoaffective disorder Adjustment disorder Asthma Depression Anxiety PTSD (post-traumatic stress disorder) Family History Family History Mother Brain cancer Other No family history of cardiac disease Family history of problems with anesthesia: No Surgical History History of Problems with Anesthesia: No Social History Social History Household Members: Other Household Members Other:: group housemates Housing: Other Housing Other:: [facility] [place] [facility] Do you presently have visiting nurse or other home services: No Unable to assess alcohol history related to: Unable to respond Alcohol intake: never Comment: 1:1 safety observation Patient Tobacco Use Status: Former Tobacco user Tobacco use type: Cigarette Cigarette Packs Per Day: 0.5 Cigarettes Per Day: 8 Years Smoked: 20 Smoked in Last 30 Days: No e-Cigarette/Vaping Use: Never Used Patient Interested in Nicotine Replacement: No Patient Given Instructions on How to Stop Smoking: No Second Hand Smoke Exposure: No Use of substances other than those prescribed or required for medical reasons: Yes Substance Use Type: Marijuana Substance Use Frequency: Chronic Longstanding Last Used Substance: Days (ago) Currently Displaying Signs/Symptoms of Drug Intoxication Withdrawal: No Any prior treatment program specific to substance use: No Advance Directives: No Advance Directives Information Provided: No Do you have thoughts of harming others: None Do you have a plan to hurt others: No Plan Recently lost weight without trying: No Eating poorly because of decreased appetite: No Nutrition Risks: No Nutritional Risk Patient : No : No Poor oral hygiene: No service: No Current occupation: rt handed Sexual orientation: Straight/Heterosexual Meds Allergies Allergy/AdvReac Type Severity Reaction Status Date / Time carbamazepine [From TEGRETOL] AdvReac Mild Nausea and Verified 10/06/24 11:42 Vomiting topiramate [From Topamax] AdvReac Mild Nausea and Verified 10/06/24 11:42 Vomiting Active Medications: Current Medications Acetaminophen (Acetaminophen 325 Mg Tablet) 650 mg PO Q6H PRN PRN Reason: Headache/Pain, Scale 1-10 Al Hydroxide/Mg Hydroxide (Magnesium Hydrox/Alum Hydrox 30 Ml Oral.Susp) 30 ml PO Q6H PRN PRN Reason: Heartburn/Nausea Albuterol Sulfate (Albuterol Sulfate 90 Mcg 8 Gm Inhaler) 2 puff INHALE Q4H PRN PRN Reason: shortness of breath or wheezing Benztropine Mesylate (Benztropine Mesylate 0.5 Mg Tablet) 0.5 mg PO BID [facility] Last Admin: 10/15/24 20:27 Dose: 0.5 mg Calcium Carbonate/Cholecalciferol (Calcium + Vitamin D 250 Mg Tablet) 500 mg PO BID [facility] Last Admin: 10/15/24 20:15 Dose: 500 mg Clonidine HCl (Clonidine Hcl 0.1 Mg Tablet) 0.1 mg PO TID [facility]; Protocol Last Admin: 10/15/24 20:16 Dose: 0.1 mg Diphenhydramine HCl (Diphenhydramine Hcl 25 Mg Capsule) 100 mg PO BEDTIME [facility] Last Admin: 10/15/24 20:17 Dose: 100 mg Duloxetine HCl (Duloxetine Hcl 60 Mg Capsule.Dr) 60 mg PO DAILY [facility] Last Admin: 10/15/24 09:50 Dose: 60 mg Fluticasone Propionate (Fluticasone Propionate Nasal 16 Gm [place]) 2 spray NOSTRIL-B DAILY [facility] Last Admin: 10/16/24 09:11 Dose: Not Given Fluticasone/Vilanterol (Fluticasone/Vilanterol 200/25 Blst.W.Dev) 1 puff INHALE RDAILY [facility] Last Admin: 10/16/24 09:10 Dose: Not Given Haloperidol (Haloperidol 5 Mg Tablet) 5 mg PO TID [facility] Last Admin: 10/15/24 20:16 Dose: 5 mg Haloperidol Decanoate (Haloperidol Decanoate 50 Mg/Ml Vial) 75 mg IM Q28D [facility] Hydroxyzine HCl (Hydroxyzine Hcl 50 Mg Tablet) 50 mg PO Q6H PRN PRN Reason: mild anxiety Last Admin: 10/15/24 15:40 Dose: 50 mg [place] Carbonate ([place] Carbonate Er 450 Mg Tablet.Er) 900 mg PO BEDTIME [facility] Last Admin: 10/15/24 20:23 Dose: Not Given Loratadine (Loratadine 10 Mg Tablet) 10 mg PO DAILY [facility] Last Admin: 10/15/24 09:51 Dose: 10 mg Lorazepam (Lorazepam 1 Mg Tablet) 1 mg PO TID PRN PRN Reason: anxiety/agitation Last Admin: 10/15/24 15:41 Dose: 1 mg Magnesium Hydroxide (Milk Of Magnesia 30 Ml Oral.Susp) 30 ml PO DAILY PRN PRN Reason: Constipation Last Admin: 10/11/24 13:20 Dose: 30 ml Multivitamins/Vitamin C (Multivitamin Tablet) 1 tab PO DAILY [facility] Last Admin: 10/15/24 09:51 Dose: 1 tab Nicotine (Nicotine 21 Mg Patch.Td24) 21 mg TRANSDERMA DAILY PRN PRN Reason: smoking cessation Nicotine Polacrilex (Nicotine Polacrilex 2 Mg Gum) 4 mg BUCCAL Q2H PRN PRN Reason: Nicotine Cravings Omeprazole (Omeprazole 20 Mg Capsule.Dr) 20 mg PO Q2D@0630 [facility] Last Admin: 10/15/24 09:50 Dose: 20 mg Prazosin HCl (Prazosin Hcl 1 Mg Capsule) 1 mg PO BEDTIME [facility]; Protocol Last Admin: 10/15/24 20:19 Dose: 1 mg Prazosin HCl (Prazosin Hcl 5 Mg Capsule) 15 mg PO BEDTIME [facility]; Protocol Last Admin: 10/15/24 20:26 Dose: 15 mg Psyllium Hydrophilic Mucilloid (Psyllium Seed 3.7 Gm Packet) 3.7 gm PO BID [facility] Last Admin: 10/15/24 20:23 Dose: Not Given Trazodone HCl (Trazodone Hcl 100 Mg Tablet) 200 mg PO BEDTIME [facility] Last Admin: 10/15/24 20:15 Dose: 200 mg Trazodone HCl (Trazodone Hcl 50 Mg Tablet) 50 mg PO BEDTIME MRX1 PRN PRN Reason: Insomnia Last Admin: 10/14/24 21:41 Dose: 50 mg Vitamin D (Cholecalciferol (Vitamin D3) 25 Mcg Tablet) 25 mcg PO DAILY [facility] Last Admin: 10/15/24 09:51 Dose: 25 mcg Zolpidem Tartrate (Zolpidem Tartrate 5 Mg Tablet) 10 mg PO BEDTIME [facility] Last Admin: 10/15/24 20:24 Dose: Not Given Home Medications ?Medication ?Instructions ?Recorded ?Confirmed ?Last Taken ?Type benztropine 0.5 mg tablet 0.5 mg PO BID 04/30/24 10/06/24 10/05/24 History clonidine HCl 0.1 mg tablet 0.1 mg PO TID 04/30/24 10/06/24 10/05/24 History diphenhydramine HCl 50 mg capsule 100 mg PO BEDTIME insomnia 04/30/24 10/06/24 10/05/24 History (Banophen) lithium carbonate 300 mg tablet 300 mg PO BID 04/30/24 10/06/24 10/05/24 History omeprazole 20 mg capsule,delayed 20 mg PO Q OTHER DAY 04/30/24 10/06/24 10/05/24 History release prazosin 5 mg capsule 15 mg PO BEDTIME 04/30/24 10/06/24 10/05/24 History trazodone 100 mg tablet 200 mg PO BEDTIME insomnia 04/30/24 10/06/24 10/05/24 History cetirizine 10 mg tablet 10 mg PO DAILY 05/17/24 10/06/24 10/05/24 History multivitamin 1 tab PO DAILY 05/17/24 10/06/24 10/05/24 History psyllium husk 0.4 gram capsule 0.8 g PO BID 05/17/24 10/06/24 10/05/24 History (Daily Fiber) zolpidem 10 mg tablet 10 mg PO BEDTIME insomnia 05/17/24 10/06/24 10/05/24 History calcium 600 mg (as 1 tab PO BID 07/29/24 10/06/24 10/05/24 History carbonate)-vitamin D3 10 mcg (400 unit) tablet cholecalciferol (vitamin D3) 25 25 mcg PO DAILY 07/29/24 10/06/24 10/05/24 History mcg (1,000 unit) tablet (Vitamin D3) fluticasone propionate 50 2 spray intranasal DAILY 08/15/24 10/06/24 10/05/24 History mcg/actuation nasal spray,suspension haloperidol 5 mg tablet 5 mg PO TID 08/15/24 10/06/24 10/05/24 History haloperidol decanoate 100 mg/mL 75 mg IM Q28D 08/15/24 10/06/24 10/05/24 History intramuscular solution nicotine (polacrilex) 2 mg gum 2 mg PO Q2H PRN Cravings 08/15/24 10/06/24 10/05/24 History prazosin 1 mg capsule 1 mg PO BEDTIME 08/15/24 10/06/24 10/05/24 History budesonide-formoterol HFA 160 2 puff inhalation BID 08/17/24 10/06/24 10/05/24 History mcg-4.5 mcg/actuation aerosol inhaler (Symbicort) Exam Height,Weight and Vital Signs: Height 4 ft 11 in Weight 87.2 kg Last Vital Signs Temp 98.7 F 10/16/24 08:33 Pulse 92 10/16/24 08:09 Resp 16 10/14/24 08:00 BP 137/86 10/16/24 08:09 Pulse Ox 98 10/16/24 08:09 O2 Del Method Room Air 10/16/24 08:09 Pertinent Lab Results Pertinent Lab Results: Laboratory Tests 10/06/24 10/06/24 10/06/24 11:30 11:54 11:55 WBC 9.8 RBC 4.12 L Hgb 12.1 Hct 36.1 L MCV 87.6 MCH 29.4 MCHC 33.5 RDW 13.2 Plt Count 263 MPV 10.4 Immature Gran % (Auto) 0.3 Neut % (Auto) 88.9 H Lymph % (Auto) 7.1 L [place] % (Auto) 3.5 Eos % (Auto) 0.0 Baso % (Auto) 0.2 Lymph # (Auto) 0.7 L [place] # (Auto) 0.3 Eos # (Auto) 0.0 Baso # (Auto) 0.0 Abs Immat Gran (auto) 0.03 Absolute Neuts (auto) 8.7 H Absolute Nucleated RBC 0.000 Nucleated RBC % (auto) 0.0 Sodium 139 Potassium 3.7 Chloride 108 Carbon Dioxide 23 Anion Gap 12 BUN 11 Creatinine 0.75 Estim Creat Clear Calc 96.9 Estimated GFR > 60 Random Glucose 120 H Calcium 10.0 D Magnesium 1.9 Total Bilirubin 0.3 AST 19 ALT 15 Alkaline Phosphatase 59 Total Protein 7.6 Albumin 4.2 Urine Color Dark Yellow Urine Appearance Cloudy Urine pH 6.5 Ur Specific [place] 1.025 Urine Protein Negative Urine Glucose (UA) Negative Urine Ketones Trace Urine Blood Negative Urine Nitrite Negative Ur Leukocyte Esterase Small (1+) H Urine RBC 0-2 Urine WBC 6-10 H Ur Squamous Epith Cells >20 Urine Bacteria 3+ Hyaline Casts 0-2 Urine Test NEGATIVE Urine Opiates Screen Not Detected Ur Buprenorphine Scrn Not Detected Ur Oxycodone Screen Not Detected Urine Methadone Screen Not Detected Urine Fentanyl Screen Not Detected Ur Barbiturates Screen Not Detected Ur Phencyclidine Scrn Not Detected Ur Amphetamines Screen Not Detected U Benzodiazepines Scrn Not Detected [place] 0.53 L Urine Cocaine Screen Not Detected U Marijuana (THC) Screen POSITIVE H Ethyl Alcohol < 10 10/15/24 09:10 WBC RBC Hgb Hct MCV MCH MCHC RDW Plt Count MPV Immature Gran % (Auto) Neut % (Auto) Lymph % (Auto) [place] % (Auto) Eos % (Auto) Baso % (Auto) Lymph # (Auto) [place] # (Auto) Eos # (Auto) Baso # (Auto) Abs Immat Gran (auto) Absolute Neuts (auto) Absolute Nucleated RBC Nucleated RBC % (auto) Sodium Potassium Chloride Carbon Dioxide Anion Gap BUN Creatinine Estim Creat Clear Calc Estimated GFR Random Glucose Calcium Magnesium Total Bilirubin AST ALT Alkaline Phosphatase Total Protein Albumin Urine Color Urine Appearance Urine pH Ur Specific [place] Urine Protein Urine Glucose (UA) Urine Ketones Urine Blood Urine Nitrite Ur Leukocyte Esterase Urine RBC Urine WBC Ur Squamous Epith Cells Urine Bacteria Hyaline Casts Urine Test Urine Opiates Screen Ur Buprenorphine Scrn Ur Oxycodone Screen Urine Methadone Screen Urine Fentanyl Screen Ur Barbiturates Screen Ur Phencyclidine Scrn Ur Amphetamines Screen U Benzodiazepines Scrn [place] 1.07 Urine Cocaine Screen U Marijuana (THC) Screen Ethyl Alcohol Airway Mallampati Class: III TM Dist: >3cm Neck ROM: Full Loose/Missing/Broken Teeth: Yes, Upper and Lower Heart: RRR Lungs: CTA Assessment and Plan Assessment Anesthesia Assessment: Anesthesia Plan Discussed and Chart Reviewed Final Anesthetic Review Family History of Problems with Anesthesia: No History of Problems with Anesthesia: No NPO: Yes ASA Class: III Final Preanesthetic Review: Meds/Allgs Chart Reviewed, Consent Obtained/Reviewed and Anes Risks/Benef Reviewed Patient Risk: Intermediate Procedure Risk: Intermediate Anesthetic Plan Anesthetic Plan: GA Disposition: Standard PACU
--- NOTE | 2024-10-16 14:34 | MHC.SHP ---
Pre-Procedural Eval Section A - 24 Hr Update-Section A only Date of Service: 10/16/24 The patient is an INPATIENT: Yes Changes since office visit: No Cold of Flu in the past 2 weeks, No New Medical Problems, No Changes in Medication and No Patient answered all questions The patient has been examined within 24 hours of the surgical procedure. The History & Physical has been completed within 30 days and I have reviewed it.: Yes Section B - Complete if H&P > 30 days Chief Complaint: Decompensation Allergies: Allergies Allergy/AdvReac Type Severity Reaction Status Date / Time carbamazepine [From TEGRETOL] AdvReac Mild Nausea and Verified 10/06/24 11:42 Vomiting topiramate [From Topamax] AdvReac Mild Nausea and Verified 10/06/24 11:42 Vomiting Plan I have reviewed the history and physical and performed a pertinent physical examination on my patient. No changes have occurred unless specified. Time Spent With Patient Time: Total time managing care of this patient today ____ minutes.
--- NOTE | 2024-10-16 14:45 | HO.ECTPROC ---
ECT Procedure Note Diagnosis/Treatment Date of Service: 10/16/24 Diagnosis: Major Depressive Disorder Previous ECT Date: 10/13/24 Treatment: Series Interval Clinical Notes: The patient reported improvement of her mood, her voices are different now as per her report. She is happy that she is going to be discharged tomorrow. ECT done as usual, no complications, woke up well. Time: Total time managing care of this patient today _30___ minutes. ECT Settings Device: THYMATRON DGx Electrode Placement: Bitemporal Program/Pulse Width: 0.50 Energy Percent: 100 Seizure Duration By EEG (in seconds): 18 By Motor Observation (in seconds): 15 Medications Administration General Anesthetic: Etomidate (14) Muscle Relaxant: Succinylcholine Airway Management Airway Management: Bag Mask Ventilation Treatment Recommendations No Changes Recommended: No change Pt Tolerated Procedure w/o Issue: Yes
[2024-10-16] MEDS: Cholecalciferol (Vitamin D3) 25 MCG TABLET PO (15:59)
[2024-10-16] MEDS: DULoxetine HCl 60 MG CAPSULE.DR PO (15:59)
[2024-10-16] MEDS: Benztropine Mesylate 0.5 MG TABLET PO ×2 (15:59→21:01)
[2024-10-16] MEDS: cloNIDine HCL 0.1 MG TABLET PO ×2 (15:59→21:01)
[2024-10-16] MEDS: Calcium + Vitamin D 250 MG TABLET 500 MG PO ×2 (15:59→21:01)
[2024-10-16] MEDS: HaloperidoL 5 MG TABLET PO ×2 (16:00→21:02)
[2024-10-16] MEDS: hydrOXYzine HCL 50 MG TABLET PO (18:27)
[2024-10-16] MEDS: diphenhydrAMINE HCL 25 MG CAPSULE 100 MG PO (21:01)
[2024-10-16] MEDS: traZODone HCL 100 MG TABLET 200 MG PO (21:02)
[2024-10-16] MEDS: Lithium Carbonate ER 450 MG TABLET.ER 900 MG PO (21:02)
[2024-10-16] MEDS: Prazosin HCL 1 MG CAPSULE PO (21:02)
[2024-10-16] MEDS: Prazosin HCL 5 MG CAPSULE 15 MG PO (21:02)
[2024-10-16] MEDS: Zolpidem Tartrate 5 MG TABLET 10 MG PO (21:02)
[2024-10-16] MEDS: LORazepam 1 MG TABLET PO (21:03)
[2024-10-17] MEDS: Omeprazole 20 MG CAPSULE.DR PO (06:51)
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
[2024-10-17] MEDS: DULoxetine HCl 60 MG CAPSULE.DR PO (09:28)
[2024-10-17] MEDS: Loratadine 10 MG TABLET PO (09:28)
[2024-10-17] MEDS: Calcium + Vitamin D 250 MG TABLET 500 MG PO (09:28)
[2024-10-17] MEDS: Cholecalciferol (Vitamin D3) 25 MCG TABLET PO (09:28)
[2024-10-17 09:29] VITALS: BP 111/69
[2024-10-17] MEDS: HaloperidoL 5 MG TABLET PO (09:29)
[2024-10-17] MEDS: Fluticasone/Vilanterol 200/25 BLST.W.DEV 1 PUFF INHALE (09:29)
[2024-10-17] MEDS: Multivitamin TABLET 1 TAB PO (09:29)
[2024-10-17] MEDS: cloNIDine HCL 0.1 MG TABLET PO (09:29)
[2024-10-17] MEDS: Fluticasone Propionate Nasal 16 GM SPRAY 2 SPRAY NOSTRIL-B (09:29)
[2024-10-17] MEDS: Benztropine Mesylate 0.5 MG TABLET PO (09:29)
[2024-10-17 09:41] VITALS: BP 132/70; PULSE 99; RESP 18; TEMP 37.1; O2SAT 94
== END 2024-10-17 11:44 | disposition home or self-care (01) | DRG 751 ==
LOC: HO.ED 13:44 → HO.PM5 16:23
PROVIDERS: Physician Assistant; Psychiatry & Neurology Psychiatry; Admitting Provider Psychiatry & Neurology Psychiatry; Emergency Provider Emergency Medicine; Visit Provider Psychiatry & Neurology Psychiatry
PROC: GZB4ZZZ Other Electroconvulsive Therapy (ICD-10-PCS; CPT 90870; principal; 2024-10-13 07:00)
DX: F33.3 Major depressive disorder, recurrent, severe with psychotic symptoms (principal); R45.851 Suicidal ideations; F17.210 Nicotine dependence, cigarettes, uncomplicated; Z71.6 Tobacco abuse counseling; J44.9 Chronic obstructive pulmonary disease, unspecified; F43.12 Post-traumatic stress disorder, chronic; F60.3 Borderline personality disorder; Z79.51 Long term (current) use of inhaled steroids; Z79.899 Other long term (current) drug therapy
CPT/HCPCS: 36415; 80053; 80178; 80307; 81001; 81025; 83735; 85025; 87086; 90870; 93005; 99285; J0330; J1630; J1642; J2060; J2405; S9485

== ENCOUNTER → 2024-10-06 14:00 | Outpatient (BNV) | payer OTHER, SELFPAY | PROVIDERS: Admitting Provider Psychiatry & Neurology Psychiatry; Emergency Provider Emergency Medicine; Visit Provider Internal Medicine | DX: I49.9 Cardiac arrhythmia, unspecified (principal) | CPT/HCPCS: 93010 ==

== ENCOUNTER → 2024-10-06 16:17 | Outpatient (BNV) | payer OTHER, SELFPAY | PROVIDERS: Admitting Provider Psychiatry & Neurology Psychiatry; Emergency Provider Emergency Medicine; Visit Provider Psychiatry & Neurology Psychiatry | DX: F60.3 Borderline personality disorder (principal); F33.3 Major depressive disorder, recurrent, severe with psychotic symptoms; F43.12 Post-traumatic stress disorder, chronic | CPT/HCPCS: 99231; 99232 ==

== ENCOUNTER → 2024-10-06 16:17 | Outpatient (BNV) | payer OTHER, SELFPAY | PROVIDERS: Admitting Provider Psychiatry & Neurology Psychiatry; Emergency Provider Emergency Medicine; Visit Provider Student in an Organized Health Care Education/Training Program | DX: Z01.818 Encounter for other preprocedural examination (principal) | CPT/HCPCS: 99222 ==

== ENCOUNTER → 2024-10-06 16:17 | Outpatient (BNV) | payer OTHER, SELFPAY | PROVIDERS: Admitting Provider Psychiatry & Neurology Psychiatry; Emergency Provider Emergency Medicine; Visit Provider Psychiatry & Neurology Psychiatry | DX: F60.3 Borderline personality disorder (principal); F33.3 Major depressive disorder, recurrent, severe with psychotic symptoms; F43.12 Post-traumatic stress disorder, chronic | CPT/HCPCS: 90870; 99231 ==

== ENCOUNTER 2024-11-01 05:50 | Day surgery (SDC) | payer OTHER, SELFPAY ==
--- OUTSIDE RECORDS SUMMARY | 2024-10-17 12:32 | XMS_ITS | Clinical Summary ---
Author Organization [facility] Address [address] [place] [address] Care Team Providers Care Senior Data Analyst Name Role Phone Marcela Gaviria MD Primary Care Provider [phone] Allergies Active Allergy Reactions Criticality Noted Date [...] Administration Dates Next Due DTP 08/03/1991, 8,03/21/1987,01/24,1986 [id number] (Pentacel) 2mo to less than 5yo 11/21/1988 [...] 12mo and older 03/03/1995,07/26/1987 OPV 08/03/1991, 8,03/21/1987,01/24,1986 Ctrax SARS-CoV-2 COVID-19, mRNA, LNP-S, preservative free 11/10/2020,10/28/2020 [...] us 2) infection Borderline personality disor thomas ([facility]) 03/07/2010 DX:Borderline personality di sorder ([facility]) Drug abuse ([facility]) 05/16/2010 DX:Drug abu se ([facility]) Irritable bowel syndrome with diarrhea 12/27/2015 DX:Irritable bowel syndrome with diarrhea Allergic rhinitis 03/29/2007 DX:Allergic rh initis Asthma 01/28/2006 DX:Asthma; COMME NT: never intubated BMI 45.0-49.9, adult ([facility]) 01/06/2017 D X:BMI [...] Date Smoking Tobacco: Every Day Cigarettes 0.5 21.2 Started: 08/16/2003 Smokeless Tobacco: Never Alcohol Use [...] Health Maintenance Results * Depression Screening (11/02/2023) [facility] Depression Screening abstracted [facility] Provider HEALTH MAINTENANCE Final Result * Lipid panel (10/07/2022) [facility] LDL/HDL Ratio 3 0 - 4 Triglycerides 50 0 - 150 mg/dL Cholesterol 150 0 - 200 mg/dL HDL 55 >=40 mg/dL LDL Cholesterol 85 0 - 100 mg/dL Blood Venous blood specimen / Unknown [facility] Provider LAB BLOOD ORDERABLES Rose Marie l Result * HIV Screening (02/03/2021) [facility] HIV Screening abstracted [facility] Provider HEALTH MAINTENANCE Final Result * Hepatitis C Screening (02/03/2021) [facility] Hepatitis C Screening abstracted [facility] Provider HEALTH MAINTENANCE Final Result * Cervical Cancer Screening: HPV (01/21/2021) Cervical Cancer Screening: HPV positive, abstracted us Historical Provider HEALTH MAINTENANCE Final Result from Last 3 Months or Most Recently Relevant to Health Maintenance Care Teams Senior Data Analyst Relationship Specialty Start Date End Date Marcela Gaviria MD [address] [place] [id number] PCP - General Internal Medicine 12/24/20
[2024-11-01 06:35] VITALS: BP 130/83; PULSE 76; RESP 16; TEMP 36.1; O2SAT 97; BMI 41.4
[2024-11-01] MEDS: Lactated Ringers 1,000 ML 50 ML IVCONT (06:50)
--- NOTE | 2024-11-01 06:50 | P.CONAN_ITS ---
[facility] Active Problems Active Problems: All Active Problems MDD (major depressive disorder), recurrent, severe, with psychosis (Acute) Osteoarthritis of right knee (Acute) Chronic post-traumatic stress disorder (PTSD) (Chronic) Borderline personality disorder (Chronic) Auditory hallucinations (Acute) Port-A-Cath in place (Acute) Intentional self-harm (Acute) COPD (chronic obstructive pulmonary disease) (Acute) Asthma (Acute) Adjustment disorder (Acute) Injury of ligament of right knee (Acute) Sprain of anterior cruciate ligament of right knee (Acute) Hernia (Chronic) Increased BMI (Acute) GERD (gastroesophageal reflux disease) (Acute) Past Medical History Medical History Schizoaffective disorder, depressive type Depression with suicidal ideation MDD (major depressive disorder), recurrent, severe, with psychosis Port-A-Cath in place History of electroconvulsive therapy COVID-19 COVID-19 Sprain of left foot Chronic post-traumatic stress disorder (PTSD) COPD (chronic obstructive pulmonary disease) Increased BMI GERD (gastroesophageal reflux disease) Recurrent major depression-severe Acute post-traumatic stress disorder Injury, self-inflicted Suicidal ideation Self-harming behavior Intentional self-harm Suicidal ideation Borderline personality disorder Schizoaffective disorder Adjustment disorder Asthma Depression Anxiety PTSD (post-traumatic stress disorder) Family History Family History Mother Brain cancer Other No family history of cardiac disease Family history of problems with anesthesia: No Surgical History History of Problems with Anesthesia: No Social History Social History Household Members: Other Household Members Other:: group housemates Housing: Other Housing Other:: [facility] custodial Do you presently have visiting nurse or other home services: No Unable to assess alcohol history related to: Unable to respond Alcohol intake: never Comment: 1:1 safety observation Patient Tobacco Use Status: Current someday Tobacco user Tobacco use type: Cigarette Cigarette Packs Per Day: 0.5 Cigarettes Per Day: 8 Years Smoked: 20 e-Cigarette/Vaping Use: Never Used Second Hand Smoke Exposure: No Substance Use Type: Marijuana Advance Directives: No Advance Directives Information Provided: Yes service: No Current occupation: rt handed Sexual orientation: Straight/Heterosexual Meds Allergies Allergy/AdvReac Type Severity Reaction Status Date / Time carbamazepine [From TEGRETOL] AdvReac Mild Nausea and Verified 10/06/24 11:42 Vomiting topiramate [From Topamax] AdvReac Mild Nausea and Verified 10/06/24 11:42 Vomiting Home Medications ?Medication ?Instructions ?Recorded ?Confirmed ?Last Taken ?Type benztropine 0.5 mg tablet 0.5 mg PO BID 04/30/24 10/06/24 10/05/24 History clonidine HCl 0.1 mg tablet 0.1 mg PO TID 04/30/24 10/06/24 10/05/24 History diphenhydramine HCl 50 mg capsule 100 mg PO BEDTIME insomnia 04/30/24 10/06/24 10/05/24 History (Banophen) omeprazole 20 mg capsule,delayed 20 mg PO Q OTHER DAY 04/30/24 10/06/24 10/05/24 History release prazosin 5 mg capsule 15 mg PO BEDTIME 04/30/24 10/06/24 10/05/24 History trazodone 100 mg tablet 200 mg PO BEDTIME insomnia 04/30/24 10/06/24 10/05/24 History cetirizine 10 mg tablet 10 mg PO DAILY 05/17/24 10/06/24 10/05/24 History multivitamin 1 tab PO DAILY 05/17/24 10/06/24 10/05/24 History psyllium husk 0.4 gram capsule 0.8 g PO BID 05/17/24 10/06/24 10/05/24 History (Daily Fiber) zolpidem 10 mg tablet 10 mg PO BEDTIME insomnia 05/17/24 10/06/24 10/05/24 History calcium 600 mg (as 1 tab PO BID 07/29/24 10/06/24 10/05/24 History carbonate)-vitamin D3 10 mcg (400 unit) tablet cholecalciferol (vitamin D3) 25 25 mcg PO DAILY 07/29/24 10/06/24 10/05/24 History mcg (1,000 unit) tablet (Vitamin D3) fluticasone propionate 50 2 spray intranasal DAILY 08/15/24 10/06/24 10/05/24 History mcg/actuation nasal spray,suspension haloperidol 5 mg tablet 5 mg PO TID 08/15/24 10/06/24 10/05/24 History haloperidol decanoate 100 mg/mL 75 mg IM Q28D 08/15/24 10/06/24 10/05/24 History intramuscular solution nicotine (polacrilex) 2 mg gum 2 mg PO Q2H PRN Cravings 08/15/24 10/06/24 10/05/24 History prazosin 1 mg capsule 1 mg PO BEDTIME 08/15/24 10/06/24 10/05/24 History budesonide-formoterol HFA 160 2 puff inhalation BID 08/17/24 10/06/24 10/05/24 History mcg-4.5 mcg/actuation aerosol inhaler (Symbicort) Exam Height,Weight and Vital Signs: Height 4 ft 11 in Weight 92.986 kg Last Vital Signs Temp 96.9 F 11/01/24 06:35 Pulse 76 11/01/24 06:35 Resp 16 11/01/24 06:35 BP 130/83 11/01/24 06:35 Pulse Ox 97 11/01/24 06:35 O2 Del Method Room Air 11/01/24 06:35 Airway Mallampati Class: II (poor dentition, missing multiple teeth) TM Dist: >3cm Neck ROM: Full Heart: rrr Lungs: cta Assessment and Plan Assessment Anesthesia Assessment: Anesthesia Plan Discussed and Chart Reviewed Final Anesthetic Review Family History of Problems with Anesthesia: No History of Problems with Anesthesia: No NPO: Yes ASA Class: III Final Preanesthetic Review: No Changes in Pt Med Stat, Meds/Allgs Chart Reviewed and Consent Obtained/Reviewed Patient Risk: Intermediate Procedure Risk: Intermediate Anesthetic Plan Anesthetic Plan: GA Disposition: Standard PACU
--- NOTE | 2024-11-01 07:04 | MHC.SHP ---
Pre-Procedural Eval Section A - 24 Hr Update-Section A only Date of Service: 11/01/24 The patient is an INPATIENT: No Changes since office visit: Yes Patient answered all questions; No Cold of Flu in the past 2 weeks, No New Medical Problems and No Changes in Medication Section B - Complete if H&P > 30 days Chief Complaint: depression Details of Present Illness: recurrent depression states doing well on q 2 wk protocal no cognitivedifficulties noted Relevant Social History: None Present Medications: see Short Stay Collaborative assessment Medical History: Significant History (asthma) History of Previous Operations: Relevant previous surgery/procedure and date(s) (ongoing ect) Allergies: Allergies Allergy/AdvReac Type Severity Reaction Status Date / Time carbamazepine [From TEGRETOL] AdvReac Mild Nausea and Verified 10/06/24 11:42 Vomiting topiramate [From Topamax] AdvReac Mild Nausea and Verified 10/06/24 11:42 Vomiting Review of Systems Sugical H&P ROS: Negative: Neurological and Yes, Specify: Respiratory (intermittant sob) and Psychiatric (states feeling better ) Exam Surgical H&P Exam: Normal: Heart and Normal: Lungs Plan I have reviewed the history and physical and performed a pertinent physical examination on my patient. No changes have occurred unless specified. Time Spent With Patient Time: Total time managing care of this patient today ____ minutes.
[2024-11-01 07:21] VITALS: BP 151/90; PULSE 67; RESP 20; TEMP 36.9; O2SAT 99
[2024-11-01 07:25] VITALS: BP 136/90; PULSE 79; RESP 16; O2SAT 99
[2024-11-01 07:30] VITALS: BP 133/80; PULSE 79; RESP 16; O2SAT 99
[2024-11-01 07:35] VITALS: BP 118/81; PULSE 85; RESP 16; O2SAT 97
--- NOTE | 2024-11-01 07:35 | HO.ECTPROC ---
ECT Procedure Note Diagnosis/Treatment Date of Service: 11/01/24 Diagnosis: Schizoaffective Disorder and Other (ptsd) Treatment: Maintenance Interval Clinical Notes: pt reports no new medical concerns feels like ect still wuite helpful tx BT tolerated well Time: Total time managing care of this patient today ____ minutes. ECT Settings Device: THYMATRON DGx Electrode Placement: Bitemporal Program/Pulse Width: 0.50 Energy Percent: 100 Seizure Duration By EEG (in seconds): 32 Medications Administration General Anesthetic: Etomidate (14) Muscle Relaxant: Succinylcholine (80) Ancillary Medications Anti-emetics: Zofran - Pre ECT Airway Management Airway Management: Bag Mask Ventilation Treatment Recommendations No Changes Recommended: No change Pt Tolerated Procedure w/o Issue: Yes
[2024-11-01 07:50] VITALS: BP 107/74; PULSE 81; RESP 16; O2SAT 97
== END 2024-11-01 08:00 | disposition home or self-care (01) ==
PROVIDERS: PCP Nurse Practitioner Family; Visit Provider Psychiatry & Neurology Psychiatry
PROC: (CPT 90870; principal; 2024-11-01 07:30)
DX: F25.9 Schizoaffective disorder, unspecified (principal); F43.10 Post-traumatic stress disorder, unspecified; J45.909 Unspecified asthma, uncomplicated; Z88.8 Allergy status to other drugs, medicaments and biological substances
CPT/HCPCS: 90870; J0330; J1642; J2405

== ENCOUNTER → 2024-11-01 05:50 | Outpatient (BNV) | payer OTHER, SELFPAY | PROVIDERS: PCP Nurse Practitioner Family; Visit Provider Psychiatry & Neurology Psychiatry | DX: F33.3 Major depressive disorder, recurrent, severe with psychotic symptoms (principal) | CPT/HCPCS: 90870 ==

== ENCOUNTER 2024-11-01 21:32 | Emergency (ER) | payer OTHER, SELFPAY ==
[2024-11-01 21:41] VITALS: BP 119/72; BP 142/82; PULSE 94; RESP 18; TEMP 36.5; O2SAT 98; O2SAT 99; BMI 40.0
--- NOTE | 2024-11-01 21:57 | PC.NURSE ---
pt biba from home, reporting SI with plan to jump in front of a car, pt reports self harm earlier in the day, reports cutting wrists with glass. pt noted to have superficial cuts to left wrist, bleeding controlled. pt reports increased life stress due to her family members having the flu. pt changed over with security, belongings secured. denies hi.
[2024-11-01] MEDS: LORazepam 1 MG TABLET 2 MG PO (22:20)
[2024-11-01] MEDS: HaloperidoL 5 MG TABLET PO (22:20)
--- NOTE | 2024-11-01 22:23 | PC.NURSE ---
pt intermittently hitting head on wall, pt redirected to stop as she is going to her herself, pt stops but continues a few minutes later. at bedside, pt medicated per oct.
[2024-11-01 22:25] LABS: MANUAL DIFF FLAG NO
[2024-11-01 22:32] LABS: Basophils Percent Auto 0.3 % (0-2); Eosinophils Absolute Auto 0.1 X10*3/uL (0.0-0.4); Hematocrit 31.8 % (37.0-47.0); Hemoglobin 10.7 g/dl (12.0-16.0); Imm Gran Abs Auto 0.03 X10*3/uL (0.00-0.03); Imm Gran Pct Auto 0.4 % (0.0-0.4); Lymphocytes Absolute Auto 1.8 X10*3/uL (1.2-4.9); Lymphocytes Percent Auto 25.6 % (20-40); Mean Corpuscular HGB Conc 33.6 g/dl (31.0-35.0); Mean Corpuscular Hemoglobin 29.4 pg (27.0-33.0); Mean Corpuscular Volume 87.4 fL (80.0-98.0); Mean Platelet Volume 11.1 fL (9.4-12.3); Monocytes Absolute Auto 0.5 X10*3/uL (0.1-1.2); Monocytes Percent Auto 6.7 % (2-11); Neutrophils Absolute Auto 4.6 x10*3/uL (2.0-8.3); Platelet Count 214 X10*3/uL (160-400); Red Blood Count 3.64 X10*6/uL (4.20-5.50); Red Cell Distribution Width 14.1 % (11.0-16.0)
[2024-11-01 22:42] LABS: Alanine Aminotransferase 10 U/L (0-31); Albumin Level 3.6 g/dL (3.5-5.0); Alkaline Phosphatase 49 U/L (39-117); Anion Gap 9 (12-20); Aspartate Amino Transferase 16 U/L (5-31); Bilirubin Total 0.1 mg/dL (0.0-1.0); Blood Urea Nitrogen 5 mg/dL (9-16); Calcium 8.9 mg/dL (8.4-10.2); Carbon Dioxide 22 mmol/L (22-29); Chloride 111 mmol/L (96-108); Creatinine Clr Calc Pharmacy 122.7; Estimated Glomerular Filt Rate > 60; Ethanol < 10 mg/dL; Glucose Random 102 mg/dL (60-115); Potassium 3.5 mmol/L (3.3-5.1); Sodium 138 mmol/L (135-145); Total Protein 6.2 g/dL (6.5-8.0)
--- NOTE | 2024-11-01 23:24 | ED_ITS ---
HPI - Psych General Chief Complaint: Psychiatric Symptoms Stated Complaint: Si w/ plan, self harm earlier today. sect 12 Time Seen by Provider: 11/01/24 22:08 Source: patient Mode of arrival: ambulatory Limitations: no limitations History of Present Illness ED Provider: HPI Narrative: Patient with PTSD depression borderline personality disorder auditory has station been here multiple times comes here she is hearing voices which gets telling her to kill herself wanted her to come in front of the car PD place the patient on section 12 patient has been here for similar reasons in the past Related Data Home Medications ?Medication ?Instructions ?Recorded ?Confirmed benztropine 0.5 mg tablet 0.5 mg PO BID 04/30/24 10/06/24 clonidine HCl 0.1 mg tablet 0.1 mg PO TID 04/30/24 10/06/24 diphenhydramine HCl 50 mg capsule 100 mg PO BEDTIME insomnia 04/30/24 10/06/24 (Banophen) omeprazole 20 mg capsule,delayed 20 mg PO Q OTHER DAY 04/30/24 10/06/24 release prazosin 5 mg capsule 15 mg PO BEDTIME 04/30/24 10/06/24 trazodone 100 mg tablet 200 mg PO BEDTIME insomnia 04/30/24 10/06/24 cetirizine 10 mg tablet 10 mg PO DAILY 05/17/24 10/06/24 multivitamin 1 tab PO DAILY 05/17/24 10/06/24 psyllium husk 0.4 gram capsule 0.8 g PO BID 05/17/24 10/06/24 (Daily Fiber) zolpidem 10 mg tablet 10 mg PO BEDTIME insomnia 05/17/24 10/06/24 calcium 600 mg (as 1 tab PO BID 07/29/24 10/06/24 carbonate)-vitamin D3 10 mcg (400 unit) tablet cholecalciferol (vitamin D3) 25 25 mcg PO DAILY 07/29/24 10/06/24 mcg (1,000 unit) tablet (Vitamin D3) fluticasone propionate 50 2 spray intranasal DAILY 08/15/24 10/06/24 mcg/actuation nasal spray,suspension haloperidol 5 mg tablet 5 mg PO TID 08/15/24 10/06/24 haloperidol decanoate 100 mg/mL 75 mg IM Q28D 08/15/24 10/06/24 intramuscular solution nicotine (polacrilex) 2 mg gum 2 mg PO Q2H PRN Cravings 08/15/24 10/06/24 prazosin 1 mg capsule 1 mg PO BEDTIME 08/15/24 10/06/24 budesonide-formoterol HFA 160 2 puff inhalation BID 08/17/24 10/06/24 mcg-4.5 mcg/actuation aerosol inhaler (Symbicort) Previous Rx's ?Medication ?Instructions ?Recorded lorazepam 1 mg tablet 1 mg PO TID PRN anxiety/agitation 05/22/24 #0 tabs albuterol sulfate 90 mcg/actuation 2 puff inhalation Q4-6H PRN 08/30/24 aerosol inhaler shortness of breath or wheezing #6.7 grams duloxetine 60 mg capsule,delayed 60 mg PO DAILY 30 days #30 caps 10/03/24 release hydroxyzine HCl 50 mg tablet 50 mg PO Q6H PRN mild anxiety 30 10/03/24 days #90 tabs lithium carbonate 450 mg 900 mg (2 x 450 mg) PO BEDTIME 30 10/17/24 tablet,extended release days #60 tabs Allergies Allergy/AdvReac Type Severity Reaction Status Date / Time carbamazepine [From TEGRETOL] AdvReac Mild Nausea and Verified 11/01/24 21:52 Vomiting topiramate [From Topamax] AdvReac Mild Nausea and Verified 11/01/24 21:52 Vomiting Review of Systems 2 Review of Systems: Yes all other systems are reviewed and are negative PMFSH Past Medical History Medical History Depression Schizoaffective disorder, depressive type Depression with suicidal ideation MDD (major depressive disorder), recurrent, severe, with psychosis Port-A-Cath in place History of electroconvulsive therapy COVID-19 COVID-19 Sprain of left foot Chronic post-traumatic stress disorder (PTSD) COPD (chronic obstructive pulmonary disease) Increased BMI GERD (gastroesophageal reflux disease) Recurrent major depression-severe Acute post-traumatic stress disorder Injury, self-inflicted Suicidal ideation Self-harming behavior Intentional self-harm Suicidal ideation Borderline personality disorder Schizoaffective disorder Adjustment disorder Asthma Depression Anxiety PTSD (post-traumatic stress disorder) Family History Family History Mother Brain cancer Other No family history of cardiac disease Social History Social History Household Members: Other Household Members Other:: group housemates Housing: Other Housing Other:: [facility] care home Do you presently have visiting nurse or other home services: No Unable to assess alcohol history related to: Unable to respond Alcohol intake: never Comment: 1:1 safety observation Patient Tobacco Use Status: Current someday Tobacco user Tobacco use type: Cigarette Cigarette Packs Per Day: 0.5 Cigarettes Per Day: 8 Years Smoked: 20 Smoked in Last 30 Days: No e-Cigarette/Vaping Use: Never Used Second Hand Smoke Exposure: No Use of substances other than those prescribed or required for medical reasons: No Substance Use Type: Marijuana Advance Directives: No Advance Directives Information Provided: No Do you have a plan to hurt others: No Plan Patient : No service: No Current occupation: rt handed Sexual orientation: Straight/Heterosexual Physical Exam 2 Vital Signs: Vital Signs: Last Vital Signs Temp 97.7 F 11/01/24 21:41 Pulse 94 11/01/24 21:41 Resp 18 11/01/24 21:41 BP 119/72 11/01/24 21:41 Pulse Ox 98 11/01/24 21:41 O2 Del Method Room Air 11/01/24 21:41 BMI result Body Mass Index 40.0 Appearance: Alert. Oriented X3. No acute distress. Eyes: PERRLA, No Nystagmus ENT: Pharynx normal. Oral Mucosa moist Neck: Normal inspection. Neck supple. CVS: Normal heart rate and rhythm. Pulses normal. Respiratory: No respiratory distress. Equal air entry bilateral, no wheezing/rales/rhonchi Abdomen: Soft and nontender. Bowel sounds are present, no mass palpable, no CVA tenderness Skin: Skin warm and dry. Normal skin color. Normal skin turgor. Extremities: No lower extremity edema. No calf tenderness psych: Anxious feels depressed still suicidal with no plan at this time Neuro: Oriented X 3. No motor deficit. No sensory deficit.No cerebellar signs , cranial nerves II-XII intact Medications Administered Discontinued Medications Generic Name Dose Route Start Last Admin Trade Name Freq PRN Reason Stop Dose Admin Haloperidol 5 mg 11/01/24 22:12 03/19/25 22:20 Haloperidol 5 Mg Tablet PO 11/01/24 22:13 5 mg ONCE ONE Administration Lorazepam 2 mg 11/01/24 22:12 11/01/24 22:20 Lorazepam 1 Mg Tablet PO 11/01/24 22:13 2 mg ONCE ONE Administration Medical Decision Making Medical Decision Making [facility] Narrative: Patient with major depressive disorder with PTSD with hallucinations been here multiple times for same comes here for hearing voices telling her to kill herself will get care team involved Lab Data [facility] Lab Attestation statement: I reviewed the patient's lab results. 11/01/24 22:13 11/01/24 22:13 Labs: Lab Results 11/01/24 11/02/24 Range/Units 22:13 00:21 WBC 7.0 (4.8-10.8) X10*3/uL RBC 3.64 L (4.20-5.50) X10*6/uL Hgb 10.7 L (12.0-16.0) g/dl Hct 31.8 L (37.0-47.0) % MCV 87.4 (80.0-98.0) fL MCH 29.4 (27.0-33.0) pg MCHC 33.6 (31.0-35.0) g/dl RDW 14.1 (11.0-16.0) % Plt Count 214 (160-400) X10*3/uL MPV 11.1 (9.4-12.3) fL Immature Gran % (Auto) 0.4 (0.0-0.4) % Neut % (Auto) 66.0 (45-73) % Lymph % (Auto) 25.6 (20-40) % [place] % (Auto) 6.7 (2-11) % Eos % (Auto) 1.0 (0-4) % Baso % (Auto) 0.3 (0-2) % Lymph # (Auto) 1.8 (1.2-4.9) X10*3/uL [place] # (Auto) 0.5 (0.1-1.2) X10*3/uL Eos # (Auto) 0.1 (0.0-0.4) X10*3/uL Baso # (Auto) 0.0 (0.0-0.2) X10*3/uL Abs Immat Gran (auto) 0.03 (0.00-0.03) X10*3/uL Absolute Neuts (auto) 4.6 (2.0-8.3) x10*3/uL Absolute Nucleated RBC 0.000 (0.0-0.012) X10*3/uL Nucleated RBC % (auto) 0.0 (0.0-0.2) /100WBC Sodium 138 (135-145) mmol/L Potassium 3.5 (3.3-5.1) mmol/L Chloride 111 H (96-108) mmol/L Carbon Dioxide 22 (22-29) mmol/L Anion Gap 9 L (12-20) BUN 5 L (9-16) mg/dL Creatinine 0.71 (0.5-1.4) mg/dL Estim Creat Clear Calc 122.7 Estimated GFR > 60 Random Glucose 102 (60-115) mg/dL Calcium 8.9 D (8.4-10.2) mg/dL Total Bilirubin 0.1 (0.0-1.0) mg/dL AST 16 (5-31) U/L ALT 10 (0-31) U/L Alkaline Phosphatase 49 (39-117) U/L Total Protein 6.2 L (6.5-8.0) g/dL Albumin 3.6 (3.5-5.0) g/dL Urine Color Yellow Urine Appearance Clear Urine pH 7.5 (5.0-9.0) Ur Specific [place] <= 1.005 (1.005-1.025) Urine Protein Negative (Neg-Trace) mg/dL Urine Glucose (UA) Negative (Negative) mg/dL Urine Ketones Negative (Negative) mg/dL Urine Blood Negative (Negative) Urine Nitrite Negative (Negative) Ur Leukocyte Esterase Negative (Negative) Urine RBC 0-2 (0-2) /HPF Urine WBC 0-5 (0-5) /HPF Ur Squamous Epith Cells 0-2 (0-2) /HPF Urine Bacteria None Seen (None Seen) Hyaline Casts 0-2 (0-2) /LPF Urine Opiates Screen Not Detected (Not Detect) Ur Buprenorphine Scrn Not Detected (Not Detect) ng/mL Ur Oxycodone Screen Not Detected (Not Detect) ng/mL Urine Methadone Screen Not Detected (Not Detect) ng/mL Urine Fentanyl Screen Not Detected (Not Detect) Ur Barbiturates Screen Not Detected (Not Detect) Ur Phencyclidine Scrn Not Detected (Not Detect) Ur Amphetamines Screen Not Detected (Not Detect) U Benzodiazepines Scrn Not Detected (Not Detect) Urine Cocaine Screen Not Detected (Not Detect) U Marijuana (THC) Screen POSITIVE H (Not Detect) Ethyl Alcohol < 10 mg/dL Discharge Plan Discharge Clinical Impression: MDD (major depressive disorder), recurrent, severe, with psychosis, Auditory hallucinations, Suicidal ideation, Bipolar disorder Patient Disposition: Still a Patient Prescriptions: No Action clonidine HCl 0.1 mg tablet 0.1 mg PO TID Rx Instructions: takes at 0800, 1400 and 2000 benztropine 0.5 mg tablet 0.5 mg PO BID diphenhydramine HCl [Banophen] 50 mg capsule 100 mg PO BEDTIME prazosin 5 mg capsule 15 mg PO BEDTIME trazodone 100 mg tablet 200 mg PO BEDTIME omeprazole 20 mg capsule,delayed release(DR/EC) 20 mg PO Q OTHER DAY cholecalciferol (vitamin D3) [Vitamin D3] 25 mcg (1,000 unit) tablet 25 mcg PO DAILY calcium carbonate-vitamin D3 600 mg-10 mcg (400 unit) tablet 1 tab PO BID haloperidol 5 mg tablet 5 mg PO TID nicotine (polacrilex) 2 mg gum 2 mg PO Q2H PRN (Reason: Cravings) prazosin 1 mg capsule 1 mg PO BEDTIME haloperidol decanoate 100 mg/mL solution 75 mg IM Q28D fluticasone propionate 50 mcg/actuation spray,suspension 2 spray intranasal DAILY albuterol sulfate 90 mcg/actuation HFA aerosol inhaler 2 puff inhalation Q4-6H PRN (Reason: shortness of breath or wheezing) Qty: 6.7 0RF hydroxyzine HCl 50 mg Tablet 50 mg PO Q6H PRN (Reason: mild anxiety) 30 Days Qty: 90 0RF duloxetine 60 mg capsule,delayed release(DR/EC) 60 mg PO DAILY 30 Days Qty: 30 0RF Rx Instructions: take with 30mg capsule psyllium husk [Daily Fiber] 0.4 gram capsule 0.8 g PO BID zolpidem 10 mg tablet 10 mg PO BEDTIME multivitamin Tablet 1 tab PO DAILY cetirizine 10 mg tablet 10 mg PO DAILY lorazepam 1 mg Tablet 1 mg PO TID PRN (Reason: anxiety/agitation) Qty: 0 0RF budesonide-formoterol [Symbicort] 160-4.5 mcg/actuation HFA aerosol inhaler 2 puff INHALATION BID lithium carbonate 450 mg Tablet Extended Release 900 mg PO BEDTIME 30 Days Qty: 60 0RF Interventions: [place]-Suicide Risk Severity Scale Last Done: 11/02/24 00:14 Print Language: Icelandic
[2024-11-02 00:34] LABS: Appearance Urine Clear; Color Urine Yellow; Glucose Urine UA Negative (Negative); Leukocyte Esterase Urine Negative (Negative); Nitrite Urine Negative (Negative); PH 7.5 (5.0-9.0); Specific Gravity - Urine <= 1.005 (1.005-1.025); Urine Blood Negative (Negative); Urine Ketones Negative (Negative); Urine Protein Negative (Neg-Trace)
[2024-11-02 00:38] LABS: Amphetamine Screen Urine Not Detected (Not Detect); Barbiturates, Urine Not Detected (Not Detect); Benzodiazepines Screen Urine Not Detected (Not Detect); Buprenorphine Scr Not Detected (Not Detect); Cannabinoid Screen Urine POSITIVE (Not Detect); Cocaine Screen Urine Not Detected (Not Detect); Fentanyl, urine Not Detected (Not Detect); Methadone Screen, Urine Not Detected (Not Detect); Opiate Screen Urine Not Detected (Not Detect); Oxycodone Screen Urine Not Detected (Not Detect); Phencyclidine Screen Urine Not Detected (Not Detect)
[2024-11-02 00:39] LABS: Bacteria Urine None Seen (None Seen); Hyaline Casts Urine 0-2 /LPF (0-2); RBC Urine 0-2 /HPF (0-2); Squamous Epithelial Cell Urine 0-2 /HPF (0-2); WBC Urine 0-5 /HPF (0-5)
[2024-11-02 04:00] VITALS: RESP 19
--- NOTE | 2024-11-02 07:13 | PC.NURSE ---
assumed care of this pt. sleeping at this time, allowed to rest.
--- NOTE | 2024-11-02 11:18 | PC.NURSE ---
patient previously ambulated to bathroom with steady gait, denied pain, currently sleeping- rr equal/non labored,
--- NOTE | 2024-11-02 13:05 | PC.NURSE ---
Addendum entered by Missy Bustos RN 11/02/24 15:44: med req pharmacy called regarding patients med req, they felt there was discrepancies they needed to work through, they requested the patients care home number to see if they could get an appropriate med req from them as her discharge medical record of medications and pharmacy prescriptions were all aligned. they will be working on this med req and get back to us. this will be passed along to the night staff. Original Note: med req patients med req was done based off her last admission medical record as well as recent pharmacy prescriptions.
[2024-11-02 14:00] VITALS: RESP 16
--- NOTE | 2024-11-02 15:56 | PC.NURSE ---
pt sleeping, rr equal/non labored, plan of care ongoing
[2024-11-02] MEDS: Acetaminophen 325 MG TABLET 650 MG PO (16:32)
[2024-11-02 16:59] VITALS: BP 116/77; PULSE 86; RESP 16; TEMP 36.7; O2SAT 98
--- NOTE | 2024-11-02 16:59 | PC.NURSE ---
pt medicated for headache, requested discharge back to nursing home, provider notified/care team facilitating ride back to nursing home.
== END 2024-11-02 17:00 | disposition home or self-care (01) ==
PROVIDERS: Emergency Provider Internal Medicine; PCP Nurse Practitioner Family
DX: F25.1 Schizoaffective disorder, depressive type (principal); R45.851 Suicidal ideations; F33.1 Major depressive disorder, recurrent, moderate; F17.210 Nicotine dependence, cigarettes, uncomplicated; Z79.899 Other long term (current) drug therapy; Z51.81 Encounter for therapeutic drug level monitoring
CPT/HCPCS: 36415; 80053; 80307; 81001; 85025; 99285; S9485

== ENCOUNTER 2024-11-04 18:55 | Emergency (ER) | payer OTHER, SELFPAY ==
--- NOTE | 2024-11-04 19:01 | ED.GENADULT ---
HPI - General Adult General Chief complaint: Psychiatric Symptoms Stated complaint: SI, CALM AND COOPERATIVE Time Seen by Provider: 11/04/24 19:00 Source: patient and EMS Mode of arrival: EMS Limitations: no limitations History of Present Illness ED Provider: Kaylee Hilario PA-C HPI narrative: Patient is a 39 year old assigned female at with a history history of COPD, PTSD, adjustment disorder, schizoaffective disorder, and borderline personality disorder presenting to the emergency department today with suicidal ideation. Patient states that she has been feeling more severely suicidal over the last few days with plans of cutting herself. Patient denies any dizziness, lightheadedness, abdominal pain, nausea, vomiting, fever, chills, blurry vision, double vision, loss of vision, chest pain, difficulty breathing, shortness of breath, back pain, night sweats, pain with urination, increased urinary frequency, increased urinary urgency, blood in her urine or stool, syncope or a near syncopal episode, recent trauma or falls, bowel incontinence, bladder incontinence, or any other complaints at this time. Relieving factors: none Exacerbating factors: none Associated symptoms: denies other symptoms Treatments prior to arrival: none Related Data Home Medications ?Medication ?Instructions ?Recorded ?Confirmed benztropine 0.5 mg tablet 0.5 mg PO BID 04/30/24 11/02/24 clonidine HCl 0.1 mg tablet 0.1 mg PO TID 04/30/24 11/02/24 diphenhydramine HCl 50 mg capsule 100 mg PO BEDTIME insomnia 04/30/24 11/02/24 (Banophen) omeprazole 20 mg capsule,delayed 20 mg PO Q OTHER DAY 04/30/24 11/02/24 release prazosin 5 mg capsule 15 mg PO BEDTIME 04/30/24 11/02/24 trazodone 100 mg tablet 200 mg PO BEDTIME insomnia 04/30/24 11/02/24 multivitamin 1 tab PO DAILY 05/17/24 11/02/24 zolpidem 10 mg tablet 10 mg PO BEDTIME insomnia 05/17/24 11/02/24 cholecalciferol (vitamin D3) 25 25 mcg PO DAILY 07/29/24 11/02/24 mcg (1,000 unit) tablet (Vitamin D3) haloperidol 5 mg tablet 5 mg PO TID 08/15/24 11/02/24 haloperidol decanoate 100 mg/mL 75 mg IM Q28D 08/15/24 11/02/24 intramuscular solution nicotine (polacrilex) 2 mg gum 2 mg PO Q2H PRN Cravings 08/15/24 11/02/24 prazosin 1 mg capsule 1 mg PO BEDTIME 08/15/24 11/02/24 calcium 600 mg (as 1 tab PO BID 11/02/24 11/02/24 carbonate)-vitamin D3 10 mcg (400 unit) tablet fluticasone furoate 200 1 inh inhalation DAILY 11/02/24 11/02/24 mcg-vilanterol 25 mcg/dose inhalation powder fluticasone propionate 230 2 puff inhalation BID 11/02/24 11/02/24 mcg-salmeterol 21 mcg/actuation HFA inhaler (Advair HFA) loratadine 10 mg tablet 10 mg PO DAILY 11/02/24 11/02/24 psyllium seed (sugar) 3.4 gram/12 3.7 g PO BID 11/02/24 11/02/24 gram oral powder trazodone 50 mg tablet 50 mg PO USEASDIRECTD 11/02/24 11/02/24 Previous Rx's ?Medication ?Instructions ?Recorded lorazepam 1 mg tablet 1 mg PO TID PRN anxiety/agitation 05/22/24 #0 tabs albuterol sulfate 90 mcg/actuation 2 puff inhalation Q4-6H PRN 08/30/24 aerosol inhaler shortness of breath or wheezing #6.7 grams duloxetine 60 mg capsule,delayed 60 mg PO DAILY 30 days #30 caps 10/03/24 release hydroxyzine HCl 50 mg tablet 50 mg PO Q6H PRN mild anxiety 30 10/03/24 days #90 tabs lithium carbonate 450 mg 900 mg (2 x 450 mg) PO BEDTIME 30 10/17/24 tablet,extended release days #60 tabs Allergies Allergy/AdvReac Type Severity Reaction Status Date / Time carbamazepine [From TEGRETOL] AdvReac Mild Nausea and Verified 11/04/24 19:05 Vomiting topiramate [From Topamax] AdvReac Mild Nausea and Verified 11/04/24 19:05 Vomiting Review of Systems Constitutional: Constitutional: Reports no additional constitutional complaints, Denies chills, Denies fever(s) and Denies night sweats Eyes: Eyes: Reports no additional eye complaints, Denies blurry vision, Denies change in vision, Denies diplopia, Denies eye discharge, Denies loss of vision and Denies eye pain ENT: Denies dizziness Cardiovascular: Cardiovascular: Reports no additional cardiovascular complaints, Denies chest pain, Denies lightheadedness, Denies Loss of Consciousness and Denies dyspnea Respiratory: Respiratory: Reports no additional respiratory complaints and Denies dyspnea Gastrointestinal: Gastrointestinal: Reports no additional gastrointestinal complaints, Denies abdominal pain, Denies melena, Denies hematochezia, Denies change in bowel habits and Denies change in stool character Genitourinary: Genitourinary: Denies hematuria, Denies urinary frequency, Denies dysuria, Denies urinary incontinence, Denies urinary hesitancy and Denies urinary urgency Musculoskeletal: Musculoskeletal: Reports no additional musculoskeletal complaints, Denies numbness and Denies tingling Neurologic: Denies dizziness, Denies loss of vision, Denies numbness and Denies tingling Psychiatric: Psychiatric: Denies homicidal ideation and Reports suicidal ideation Endocrine: Endocrine: Reports no additional endocrine complaints Hematologic/Lymphatic: Hematologic/Lymphatic: Reports no additional hematologic/lymphatic complaints Allergic/Immunologic: Allergic/Immunologic: Reports no additional allergic/immunologic complaints [facility] Past Medical History Attestation statement: The following information was validated with the patient. Source: old records reviewed and nursing notes reviewed Medical History Depression Schizoaffective disorder, depressive type Depression with suicidal ideation MDD (major depressive disorder), recurrent, severe, with psychosis Port-A-Cath in place History of electroconvulsive therapy COVID-19 COVID-19 Sprain of left foot Chronic post-traumatic stress disorder (PTSD) COPD (chronic obstructive pulmonary disease) Increased BMI GERD (gastroesophageal reflux disease) Recurrent major depression-severe Acute post-traumatic stress disorder Injury, self-inflicted Suicidal ideation Self-harming behavior Intentional self-harm Suicidal ideation Borderline personality disorder Schizoaffective disorder Adjustment disorder Asthma Depression Anxiety PTSD (post-traumatic stress disorder) Family History Family History Mother Brain cancer Other No family history of cardiac disease Social History Social History Household Members: Other Household Members Other:: group housemates Housing: Other Housing Other:: [facility] Do you presently have visiting nurse or other home services: No Unable to assess alcohol history related to: Unable to respond Alcohol intake: never Comment: 1:1 safety observation Patient Tobacco Use Status: Current someday Tobacco user Tobacco use type: Cigarette Cigarette Packs Per Day: 0.5 Cigarettes Per Day: 8 Years Smoked: 20 e-Cigarette/Vaping Use: Never Used Second Hand Smoke Exposure: No Substance Use Type: Marijuana Advance Directives: No Advance Directives Information Provided: No Do you have a plan to hurt others: No Plan service: No Current occupation: rt handed Sexual orientation: Straight/Heterosexual Physical Exam ED Vital Signs: Vital Signs - 24 hr 11/04/24 19:02 Temperature 98.5 F Pulse Rate 99 Respiratory Rate 18 Blood Pressure 135/77 Pulse Oximetry 99 Oxygen Delivery Method Room Air BMI result Body Mass Index 42.8 Const General: cooperative, no acute distress, alert and awake Nutritional Appearance: well nourished Orientation/consciousness: patient oriented x3 Limitations: no limitations HENMT Head: Yes normal to inspection and Yes atraumatic Ears: hearing grossly normal bilaterally and external ears normal General nose exam: Normal external nose present, no nasal discharge noted and no epistaxis Face and sinus: Yes normal facial exam, No abrasion and No laceration Mouth: Normal oral and palatal mucosa present, no drooling and no muffled voice Eyes General: appearance normal, both eyes and all related structures Periorbital: periorbital findings normal Eyelids: Yes eyelids normal Conjunctivae: conjunctivae normal Pupils: Equal, round and reactive pupils present EOM: EOMs intact bilaterally Neck Neck: Yes normal visual inspection, Yes full ROM and Yes no lymphadenopathy Chest Chest palpation & inspection: normal inspection of the chest Resp Effort & Inspection: normal respiratory effort and able to speak in complete sentences GI Inspection: Yes normal to inspection Neuro General: patient oriented x3, moves all extremities and CN's II-XI intact bilaterally Cranial nerves: Yes Equal, round and reactive pupils present Cognition (Neuro): normal cognition Extrem General: Yes normal to inspection, Yes full ROM and Yes capillary refill normal Psych Appearance: grossly normal Mental Status: mental status grossly normal Affect: Sad affect present Attitude: Guarded attititude/behavior present Thought content: Suicidality present Medical Decision Making Medical Decision Making MDM Narrative: Patient is a 39 year old assigned female at with a history history of COPD, PTSD, adjustment disorder, schizoaffective disorder, and borderline personality disorder presenting to the emergency department today with suicidal ideation. Patient's physical exam was as noted in the physical exam portion of this note. Patient's blood work was unremarkable. I explained my physical exam findings as well as all test results to the patient. I answered all questions asked by the patient. Patient is awaiting evaluation by the CARE Team. Patient's disposition will be determined after CARE team evaluation. Differential Diagnosis Differential Diagnoses: The differential diagnosis associated with the presentation includes SI Depression Admission/Observation Consideration of admission/observation: Escalation of care including admission/observation considered Patient's disposition will be determined after CARE team evaluation. Lab Data [facility] Lab Attestation statement: I reviewed the patient's lab results. My interpretation of these results are in the MDM Rationale portion of this note. 11/04/24 19:43 11/04/24 19:43 Labs: Lab Results 11/04/24 11/04/24 Range/Units 19:43 19:53 WBC 9.2 (4.8-10.8) X10*3/uL RBC 3.91 L (4.20-5.50) X10*6/uL Hgb 11.4 L (12.0-16.0) g/dl Hct 34.2 L (37.0-47.0) % MCV 87.5 (80.0-98.0) fL MCH 29.2 (27.0-33.0) pg MCHC 33.3 (31.0-35.0) g/dl RDW 14.0 (11.0-16.0) % Plt Count 242 (160-400) X10*3/uL MPV 10.6 (9.4-12.3) fL Immature Gran % (Auto) 0.3 (0.0-0.4) % Neut % (Auto) 76.7 H (45-73) % Lymph % (Auto) 17.0 L (20-40) % [place] % (Auto) 5.3 (2-11) % Eos % (Auto) 0.5 (0-4) % Baso % (Auto) 0.2 (0-2) % Lymph # (Auto) 1.6 (1.2-4.9) X10*3/uL [place] # (Auto) 0.5 (0.1-1.2) X10*3/uL Eos # (Auto) 0.1 (0.0-0.4) X10*3/uL Baso # (Auto) 0.0 (0.0-0.2) X10*3/uL Abs Immat Gran (auto) 0.03 (0.00-0.03) X10*3/uL Absolute Neuts (auto) 7.0 (2.0-8.3) x10*3/uL Absolute Nucleated RBC 0.000 (0.0-0.012) X10*3/uL Nucleated RBC % (auto) 0.0 (0.0-0.2) /100WBC Sodium 136 (135-145) mmol/L Potassium 3.7 (3.3-5.1) mmol/L Chloride 108 (96-108) mmol/L Carbon Dioxide 21 L (22-29) mmol/L Anion Gap 11 L (12-20) BUN 8 L (9-16) mg/dL Creatinine 0.64 (0.5-1.4) mg/dL Estim Creat Clear Calc 116.1 Estimated GFR > 60 Random Glucose 123 H (60-115) mg/dL Calcium 8.9 (8.4-10.2) mg/dL Total Bilirubin 0.2 (0.0-1.0) mg/dL AST 15 (5-31) U/L ALT 12 (0-31) U/L Alkaline Phosphatase 54 (39-117) U/L Total Protein 6.8 (6.5-8.0) g/dL Albumin 3.9 (3.5-5.0) g/dL Urine Color Yellow Urine Appearance Clear Urine pH 6.5 (5.0-9.0) Ur Specific [place] <= 1.005 (1.005-1.025) Urine Protein Negative (Neg-Trace) mg/dL Urine Glucose (UA) Negative (Negative) mg/dL Urine Ketones Negative (Negative) mg/dL Urine Blood Negative (Negative) Urine Nitrite Negative (Negative) Ur Leukocyte Esterase Negative (Negative) Salicylates < 5.0 L (15-30) mg/dL Urine Opiates Screen Not Detected (Not Detect) Ur Buprenorphine Scrn Not Detected (Not Detect) ng/mL Ur Oxycodone Screen Not Detected (Not Detect) ng/mL Urine Methadone Screen Not Detected (Not Detect) ng/mL Urine Fentanyl Screen Not Detected (Not Detect) Acetaminophen < 3 (<30) mcg/mL Ur Barbiturates Screen Not Detected (Not Detect) Ur Phencyclidine Scrn Not Detected (Not Detect) Ur Amphetamines Screen Not Detected (Not Detect) U Benzodiazepines Scrn Not Detected (Not Detect) Urine Cocaine Screen Not Detected (Not Detect) U Marijuana (THC) Screen POSITIVE H (Not Detect) Ethyl Alcohol < 10 mg/dL COVID-19 (RAFAL) Negative (Negative) COVID-19 Clin Com See Note Independent Historian Clinical information obtained from an independent historian. History obtained from or confirmed by: EMS (EMS provided additional history and confirmed the history provided by the patient. ) Discharge Plan Discharge Clinical Impression: Suicidal ideation Patient Disposition: Still a Patient Prescriptions: No Action clonidine HCl 0.1 mg tablet 0.1 mg PO TID Rx Instructions: takes at 0800, 1400 and 2000 benztropine 0.5 mg tablet 0.5 mg PO BID diphenhydramine HCl [Banophen] 50 mg capsule 100 mg PO BEDTIME prazosin 5 mg capsule 15 mg PO BEDTIME trazodone 100 mg tablet 200 mg PO BEDTIME omeprazole 20 mg capsule,delayed release(DR/EC) 20 mg PO Q OTHER DAY cholecalciferol (vitamin D3) [Vitamin D3] 25 mcg (1,000 unit) tablet 25 mcg PO DAILY haloperidol 5 mg tablet 5 mg PO TID nicotine (polacrilex) 2 mg gum 2 mg PO Q2H PRN (Reason: Cravings) prazosin 1 mg capsule 1 mg PO BEDTIME haloperidol decanoate 100 mg/mL solution 75 mg IM Q28D albuterol sulfate 90 mcg/actuation HFA aerosol inhaler 2 puff inhalation Q4-6H PRN (Reason: shortness of breath or wheezing) Qty: 6.7 0RF hydroxyzine HCl 50 mg Tablet 50 mg PO Q6H PRN (Reason: mild anxiety) 30 Days Qty: 90 0RF duloxetine 60 mg capsule,delayed release(DR/EC) 60 mg PO DAILY 30 Days Qty: 30 0RF Rx Instructions: take with 30mg capsule zolpidem 10 mg tablet 10 mg PO BEDTIME multivitamin Tablet 1 tab PO DAILY lorazepam 1 mg Tablet 1 mg PO TID PRN (Reason: anxiety/agitation) Qty: 0 0RF lithium carbonate 450 mg Tablet Extended Release 900 mg PO BEDTIME 30 Days Qty: 60 0RF fluticasone furoate-vilanterol 200-25 mcg/dose Blister With Device 1 inh INHALATION DAILY loratadine 10 mg Tablet 10 mg PO DAILY trazodone 50 mg Tablet 50 mg PO USEASDIRECTD Patient Comments: bedtime [id number] fluticasone propion-salmeterol [Advair HFA] 230-21 mcg/actuation HFA aerosol inhaler 2 puff INHALATION BID calcium carbonate-vitamin D3 600 mg-10 mcg (400 unit) tablet 1 tab PO BID psyllium seed (sugar) 3.4 gram/12 gram Powder 3.7 g PO BID Interventions: [place]-Suicide Risk Severity Scale Last Done: 11/04/24 19:06 Print Language: Tamazight
[2024-11-04 19:02] VITALS: BP 100/70; BP 135/77; PULSE 80; PULSE 99; RESP 18; TEMP 36.9; O2SAT 100; O2SAT 99; BMI 42.8
[2024-11-04 19:51] LABS: MANUAL DIFF FLAG NO
[2024-11-04 19:53] LABS: Basophils Percent Auto 0.2 % (0-2); Eosinophils Absolute Auto 0.1 X10*3/uL (0.0-0.4); Eosinophils Percent Auto 0.5 % (0-4); Hematocrit 34.2 % (37.0-47.0); Hemoglobin 11.4 g/dl (12.0-16.0); Imm Gran Abs Auto 0.03 X10*3/uL (0.00-0.03); Imm Gran Pct Auto 0.3 % (0.0-0.4); Lymphocytes Absolute Auto 1.6 X10*3/uL (1.2-4.9); Mean Corpuscular HGB Conc 33.3 g/dl (31.0-35.0); Mean Corpuscular Hemoglobin 29.2 pg (27.0-33.0); Mean Corpuscular Volume 87.5 fL (80.0-98.0); Mean Platelet Volume 10.6 fL (9.4-12.3); Monocytes Absolute Auto 0.5 X10*3/uL (0.1-1.2); Monocytes Percent Auto 5.3 % (2-11); Neutrophils Percent Auto 76.7 % (45-73); Platelet Count 242 X10*3/uL (160-400); Red Blood Count 3.91 X10*6/uL (4.20-5.50); White Blood Count 9.2 X10*3/uL (4.8-10.8)
[2024-11-04 20:04] LABS: Appearance Urine Clear; Color Urine Yellow; Glucose Urine UA Negative (Negative); Leukocyte Esterase Urine Negative (Negative); Nitrite Urine Negative (Negative); PH 6.5 (5.0-9.0); Specific Gravity - Urine <= 1.005 (1.005-1.025); Urine Blood Negative (Negative); Urine Ketones Negative (Negative); Urine Protein Negative (Neg-Trace)
[2024-11-04 20:06] LABS: COVID-19 Test Negative (Negative); IDNOW Serial# 55D5AD1C
[2024-11-04 20:09] LABS: Acetaminophen LAB < 3 mcg/mL (<30); Alanine Aminotransferase 12 U/L (0-31); Albumin Level 3.9 g/dL (3.5-5.0); Alkaline Phosphatase 54 U/L (39-117); Anion Gap 11 (12-20); Aspartate Amino Transferase 15 U/L (5-31); Bilirubin Total 0.2 mg/dL (0.0-1.0); Blood Urea Nitrogen 8 mg/dL (9-16); Calcium 8.9 mg/dL (8.4-10.2); Carbon Dioxide 21 mmol/L (22-29); Chloride 108 mmol/L (96-108); Creatinine Clr Calc Pharmacy 116.1; Estimated Glomerular Filt Rate > 60; Ethanol < 10 mg/dL; Glucose Random 123 mg/dL (60-115); Potassium 3.7 mmol/L (3.3-5.1); Salicylate < 5.0 mg/dL (15-30); Sodium 136 mmol/L (135-145); Total Protein 6.8 g/dL (6.5-8.0)
[2024-11-04 20:13] LABS: Amphetamine Screen Urine Not Detected (Not Detect); Barbiturates, Urine Not Detected (Not Detect); Benzodiazepines Screen Urine Not Detected (Not Detect); Buprenorphine Scr Not Detected (Not Detect); Cannabinoid Screen Urine POSITIVE (Not Detect); Cocaine Screen Urine Not Detected (Not Detect); Fentanyl, urine Not Detected (Not Detect); Methadone Screen, Urine Not Detected (Not Detect); Opiate Screen Urine Not Detected (Not Detect); Oxycodone Screen Urine Not Detected (Not Detect); Phencyclidine Screen Urine Not Detected (Not Detect)
[2024-11-04 21:56] VITALS: BP 140/75; PULSE 80; RESP 18; TEMP 36.6; O2SAT 98
[2024-11-04 22:01] VITALS: BP 140/75
[2024-11-04] MEDS: Prazosin HCL 5 MG CAPSULE 15 MG PO (22:01)
[2024-11-04] MEDS: Zolpidem Tartrate 5 MG TABLET 10 MG PO (22:01)
[2024-11-04 22:02] VITALS: BP 140/75
[2024-11-04] MEDS: Lithium Carbonate ER 450 MG TABLET.ER 900 MG PO (22:02)
[2024-11-04] MEDS: diphenhydrAMINE HCL 25 MG CAPSULE 100 MG PO (22:02)
[2024-11-04] MEDS: Prazosin HCL 1 MG CAPSULE PO (22:02)
[2024-11-04] MEDS: Acetaminophen 325 MG TABLET 650 MG PO (22:02)
[2024-11-04 22:03] VITALS: BP 140/75
[2024-11-04] MEDS: Benztropine Mesylate 0.5 MG TABLET PO (22:03)
[2024-11-04] MEDS: cloNIDine HCL 0.1 MG TABLET PO (22:03)
[2024-11-04] MEDS: traZODone HCL 100 MG TABLET 200 MG PO (22:03)
[2024-11-04] MEDS: HaloperidoL 5 MG TABLET PO (22:03)
--- NOTE | 2024-11-04 23:19 | PC.NURSE ---
This mortgage or loan underwriter assumed care of this Pt at 2300. Pt calm awake sitting on edge of bed. Pt ambulated to BR independently with steady gait.
[2024-11-05] MEDS: Cholecalciferol (Vitamin D3) 25 MCG TABLET PO (08:14)
[2024-11-05] MEDS: DULoxetine HCl 60 MG CAPSULE.DR PO (08:14)
[2024-11-05] MEDS: Benztropine Mesylate 0.5 MG TABLET PO (08:14)
[2024-11-05] MEDS: HaloperidoL 5 MG TABLET PO (08:14)
[2024-11-05] MEDS: Loratadine 10 MG TABLET PO (08:14)
[2024-11-05] MEDS: cloNIDine HCL 0.1 MG TABLET PO (08:14)
[2024-11-05] MEDS: Calcium + Vitamin D 250 MG TABLET 500 MG PO (08:14)
[2024-11-05] MEDS: Fluticasone/Vilanterol 200/25 BLST.W.DEV 1 PUFF INHALE (10:33)
[2024-11-05 10:45] VITALS: PULSE 84; RESP 16; O2SAT 98
[2024-11-05] MEDS: LORazepam 1 MG TABLET PO (12:13)
[2024-11-05 13:39] VITALS: BP 134/84; PULSE 74; RESP 16; TEMP 36.3; O2SAT 97
== END 2024-11-05 13:45 | disposition home or self-care (01) ==
PROVIDERS: Physician Assistant Medical; Emergency Provider Emergency Medicine; PCP Nurse Practitioner Family
DX: R45.851 Suicidal ideations (principal); F33.3 Major depressive disorder, recurrent, severe with psychotic symptoms; F43.12 Post-traumatic stress disorder, chronic; F60.3 Borderline personality disorder; R44.0 Auditory hallucinations; F43.20 Adjustment disorder, unspecified; J45.909 Unspecified asthma, uncomplicated; K21.9 Gastro-esophageal reflux disease without esophagitis; F12.90 Cannabis use, unspecified, uncomplicated; F17.210 Nicotine dependence, cigarettes, uncomplicated; Z79.899 Other long term (current) drug therapy; Z11.52 Encounter for screening for COVID-19
CPT/HCPCS: 36415; 80053; 80143; 80179; 80307; 81003; 85025; 87635; 99285; S9485

== ENCOUNTER 2024-11-05 20:15 | Emergency (ER) | payer OTHER, SELFPAY ==
--- NOTE | 2024-11-05 20:53 | ED.GENADULT ---
HPI - General Adult General Chief complaint: Psychiatric Symptoms Stated complaint: suicidal, hx 3days, crisis Time Seen by Provider: 11/05/24 20:47 Source: patient, RN notes reviewed and old records reviewed Mode of arrival: EMS Limitations: no limitations History of Present Illness ED Provider: Sindy HPI narrative: 39-year-old female who was well known to this ER for frequent visits related to psychiatric illness presents for evaluation of suicidal ideation. Patient has a history of PTSD, borderline personality disorder, auditory hallucinations, GERD, COPD She reports that she has been having a bad day and is having thoughts of ending her life She has plans to kill herself by ?banging my head until it splits open. ? The patient was seen in this facility yesterday afternoon/evening for depression and was ultimately discharged back home She denies any specific events that happened today that triggered any worsening symptoms Related Data Home Medications ?Medication ?Instructions ?Recorded ?Confirmed benztropine 0.5 mg tablet 0.5 mg PO BID 04/30/24 11/04/24 clonidine HCl 0.1 mg tablet 0.1 mg PO TID 04/30/24 11/04/24 diphenhydramine HCl 50 mg capsule 100 mg PO BEDTIME insomnia 04/30/24 11/04/24 (Banophen) omeprazole 20 mg capsule,delayed 20 mg PO Q OTHER DAY 04/30/24 11/04/24 release prazosin 5 mg capsule 15 mg PO BEDTIME 04/30/24 11/04/24 trazodone 100 mg tablet 200 mg PO BEDTIME insomnia 04/30/24 11/04/24 multivitamin 1 tab PO DAILY 05/17/24 11/04/24 zolpidem 10 mg tablet 10 mg PO BEDTIME insomnia 05/17/24 11/04/24 cholecalciferol (vitamin D3) 25 25 mcg PO DAILY 07/29/24 11/04/24 mcg (1,000 unit) tablet (Vitamin D3) haloperidol 5 mg tablet 5 mg PO TID 08/15/24 11/04/24 haloperidol decanoate 100 mg/mL 75 mg IM Q28D 08/15/24 11/04/24 intramuscular solution nicotine (polacrilex) 2 mg gum 2 mg PO Q2H PRN Cravings 08/15/24 11/04/24 prazosin 1 mg capsule 1 mg PO BEDTIME 08/15/24 11/04/24 calcium 600 mg (as 1 tab PO BID 11/02/24 11/04/24 carbonate)-vitamin D3 10 mcg (400 unit) tablet fluticasone furoate 200 1 inh inhalation DAILY 11/02/24 11/04/24 mcg-vilanterol 25 mcg/dose inhalation powder fluticasone propionate 230 2 puff inhalation BID 11/02/24 11/04/24 mcg-salmeterol 21 mcg/actuation HFA inhaler (Advair HFA) loratadine 10 mg tablet 10 mg PO DAILY 11/02/24 11/04/24 Previous Rx's ?Medication ?Instructions ?Recorded lorazepam 1 mg tablet 1 mg PO TID PRN anxiety/agitation 05/22/24 #0 tabs albuterol sulfate 90 mcg/actuation 2 puff inhalation Q4-6H PRN 08/30/24 aerosol inhaler shortness of breath or wheezing #6.7 grams duloxetine 60 mg capsule,delayed 60 mg PO DAILY 30 days #30 caps 10/03/24 release hydroxyzine HCl 50 mg tablet 50 mg PO Q6H PRN mild anxiety 30 10/03/24 days #90 tabs lithium carbonate 450 mg 900 mg (2 x 450 mg) PO BEDTIME 10/17/24 tablet,extended release days #60 tabs Allergies Allergy/AdvReac Type Severity Reaction Status Date / Time carbamazepine [From TEGRETOL] AdvReac Mild Nausea and Verified 11/05/24 21:07 Vomiting topiramate [From Topamax] AdvReac Mild Nausea and Verified 11/05/24 21:07 Vomiting Review of Systems Constitutional: Constitutional: Denies body ache(s), Denies chills, Denies fever(s) and Denies headache(s) Eyes: Eyes: Denies blurry vision ENT: Denies vertigo, Denies dizziness and Denies headache(s) Cardiovascular: Cardiovascular: Denies chest pain Gastrointestinal: Gastrointestinal: Denies abdominal pain Musculoskeletal: Musculoskeletal: Denies back pain Integumentary/Breasts: Skin/Breast: Denies rash Neurologic: Denies vertigo, Denies dizziness and Denies headache(s) Psychiatric: Psychiatric: Denies anxiety, Reports depression, Denies auditory hallucinations, Denies visual hallucinations, Denies homicidal ideation and Reports suicidal ideation PMF Past Medical History Medical History Depression Schizoaffective disorder, depressive type Depression with suicidal ideation MDD (major depressive disorder), recurrent, severe, with psychosis Port-A-Cath in place History of electroconvulsive therapy COVID-19 COVID-19 Sprain of left foot Chronic post-traumatic stress disorder (PTSD) COPD (chronic obstructive pulmonary disease) Increased BMI GERD (gastroesophageal reflux disease) Recurrent major depression-severe Acute post-traumatic stress disorder Injury, self-inflicted Suicidal ideation Self-harming behavior Intentional self-harm Suicidal ideation Borderline personality disorder Schizoaffective disorder Adjustment disorder Asthma Depression Anxiety PTSD (post-traumatic stress disorder) Family History Family History Mother Brain cancer Other No family history of cardiac disease Social History Social History Household Members: Other Household Members Other:: group housemates Housing: Other Housing Other:: [facility] care home Do you presently have visiting nurse or other home services: No Unable to assess alcohol history related to: Unable to respond Alcohol intake: current Alcohol intake frequency: does not drink Comment: 1:1 safety observation Patient Tobacco Use Status: Current someday Tobacco user Tobacco use type: Cigarette Cigarette Packs Per Day: 0.5 Cigarettes Per Day: 8 Years Smoked: 20 e-Cigarette/Vaping Use: Never Used Second Hand Smoke Exposure: No Substance Use Type: Marijuana Advance Directives: No Advance Directives Information Provided: No service: No Current occupation: rt handed Sexual orientation: Straight/Heterosexual Physical Exam ED Vital Signs: Vital Signs - 24 hr 11/06/24 00:17 Temperature 97.4 F Pulse Rate 86 Respiratory Rate 16 Blood Pressure 97/64 Pulse Oximetry 95 Oxygen Delivery Method Room Air BMI result Body Mass Index 38.4 Const General: healthy appearing, comfortable, no acute distress, alert and awake Nutritional Appearance: well nourished Orientation/consciousness: patient oriented x3 HENMT Head: Yes normocephalic and Yes atraumatic Eyes Eyelids: Yes eyelids normal Conjunctivae: conjunctivae normal Sclerae: sclerae normal Corneas: corneas normal Pupils: Equal, round and reactive pupils present EOM: EOMs intact bilaterally Neck Neck: Yes full ROM Resp Effort & Inspection: normal respiratory effort, able to speak in complete sentences and not labored Skin General skin exam: elasticity normal Neuro General: patient oriented x3 Cranial nerves: Yes CN's II-XII intact bilaterally, Yes Equal, round and reactive pupils present and Yes Bilaterally intact EOM present Cognition (Neuro): normal cognition Extrem Other: Moving all extremities well without any obvious deformities Course Reevaluation(s) Reevaluation #1: Patient's workup largely unremarkable, she does have a chronic anemia consistent with a baseline. No acute findings. The patient is stable for medical clearance and can be evaluated by the care team at this time Time: 00:30 Reevaluation #2: Patient is seen by the care team and will be a follow up for the morning as she still endorses continued SI. Time: 01:38 Medications Administered Discontinued Medications Generic Name Dose Route Start Last Admin Trade Name Freq PRN Reason Stop Dose Admin Lorazepam 2 mg 11/05/24 20:52 11/05/24 21:06 Lorazepam 1 Mg Tablet PO 11/05/24 20:53 2 mg ONCE ONE Administration Medical Decision Making Medical Decision Making MDM Narrative: 39-year-old female presents for evaluation of suicidal ideation. She was well known to this facility and was actually here yesterday. Plan for medical clearance, tox screen and care team evaluation. Differential Diagnosis Differential Diagnoses: The differential diagnosis associated with the presentation includes Depression Suicidal ideation Bipolar disorder Malingering Self-harm PTSD Lab Data 11/05/24 23:17 11/05/24 23:17 Labs: Lab Results 11/05/24 11/05/24 Range/Units 21:10 23:17 WBC 5.7 (4.8-10.8) X10*3/uL RBC 3.85 L (4.20-5.50) X10*6/uL Hgb 11.4 L (12.0-16.0) g/dl Hct 34.2 L (37.0-47.0) % MCV 88.8 (80.0-98.0) fL MCH 29.6 (27.0-33.0) pg MCHC 33.3 (31.0-35.0) g/dl RDW 14.0 (11.0-16.0) % Plt Count 238 (160-400) X10*3/uL MPV 10.7 (9.4-12.3) fL Immature Gran % (Auto) 0.2 (0.0-0.4) % Neut % (Auto) 61.6 (45-73) % Lymph % (Auto) 27.3 (20-40) % Major % (Auto) 8.6 (2-11) % Eos % (Auto) 1.8 (0-4) % Baso % (Auto) 0.5 (0-2) % Lymph # (Auto) 1.6 (1.2-4.9) X10*3/uL Major # (Auto) 0.5 (0.1-1.2) X10*3/uL Eos # (Auto) 0.1 (0.0-0.4) X10*3/uL Baso # (Auto) 0.0 (0.0-0.2) X10*3/uL Abs Immat Gran (auto) 0.01 (0.00-0.03) X10*3/uL Absolute Neuts (auto) 3.5 (2.0-8.3) x10*3/uL Absolute Nucleated RBC 0.000 (0.0-0.012) X10*3/uL Nucleated RBC % (auto) 0.0 (0.0-0.2) /100WBC Sodium 136 (135-145) mmol/L Potassium 4.0 (3.3-5.1) mmol/L Chloride 109 H (96-108) mmol/L Carbon Dioxide 19 L (22-29) mmol/L Anion Gap 12 (12-20) BUN 7 L (9-16) mg/dL Creatinine 0.72 (0.5-1.4) mg/dL Estim Creat Clear Calc 101.0 Estimated GFR > 60 Random Glucose 75 (60-115) mg/dL Calcium 9.2 (8.4-10.2) mg/dL Total Bilirubin 0.2 (0.0-1.0) mg/dL AST 16 (5-31) U/L ALT 10 (0-31) U/L Alkaline Phosphatase 45 (39-117) U/L Total Protein 6.5 (6.5-8.0) g/dL Albumin 3.4 L (3.5-5.0) g/dL Urine Test NEGATIVE (NEGATIVE) Salicylates < 5.0 L (15-30) mg/dL Urine Opiates Screen Not Detected (Not Detect) Ur Buprenorphine Scrn Not Detected (Not Detect) ng/mL Ur Oxycodone Screen Not Detected (Not Detect) ng/mL Urine Methadone Screen Not Detected (Not Detect) ng/mL Urine Fentanyl Screen Not Detected (Not Detect) Acetaminophen < 3 (<30) mcg/mL Ur Barbiturates Screen Not Detected (Not Detect) Ur Phencyclidine Scrn Not Detected (Not Detect) Ur Amphetamines Screen Not Detected (Not Detect) U Benzodiazepines Scrn Not Detected (Not Detect) Urine Cocaine Screen Not Detected (Not Detect) U Marijuana (THC) Screen POSITIVE H (Not Detect) Ethyl Alcohol < 10 mg/dL Discharge Plan Discharge Clinical Impression: Depression with suicidal ideation Patient Disposition: Still a Patient Prescriptions: No Action clonidine HCl 0.1 mg tablet 0.1 mg PO TID Rx Instructions: takes at 0800, 1400 and 2000 benztropine 0.5 mg tablet 0.5 mg PO BID diphenhydramine HCl [Banophen] 50 mg capsule 100 mg PO BEDTIME prazosin 5 mg capsule 15 mg PO BEDTIME trazodone 100 mg tablet 200 mg PO BEDTIME omeprazole 20 mg capsule,delayed release(DR/EC) 20 mg PO Q OTHER DAY cholecalciferol (vitamin D3) [Vitamin D3] 25 mcg (1,000 unit) tablet 25 mcg PO DAILY haloperidol 5 mg tablet 5 mg PO TID nicotine (polacrilex) 2 mg gum 2 mg PO Q2H PRN (Reason: Cravings) prazosin 1 mg capsule 1 mg PO BEDTIME haloperidol decanoate 100 mg/mL solution 75 mg IM Q28D albuterol sulfate 90 mcg/actuation HFA aerosol inhaler 2 puff inhalation Q4-6H PRN (Reason: shortness of breath or wheezing) Qty: 6.7 0RF hydroxyzine HCl 50 mg Tablet 50 mg PO Q6H PRN (Reason: mild anxiety) 30 Days Qty: 90 0RF duloxetine 60 mg capsule,delayed release(DR/EC) 60 mg PO DAILY 30 Days Qty: 30 0RF Rx Instructions: take with 30mg capsule zolpidem 10 mg tablet 10 mg PO BEDTIME multivitamin Tablet 1 tab PO DAILY lorazepam 1 mg Tablet 1 mg PO TID PRN (Reason: anxiety/agitation) Qty: 0 0RF lithium carbonate 450 mg Tablet Extended Release 900 mg PO BEDTIME 30 Days Qty: 60 0RF fluticasone furoate-vilanterol 200-25 mcg/dose Blister With Device 1 inh INHALATION DAILY loratadine 10 mg Tablet 10 mg PO DAILY fluticasone propion-salmeterol [Advair HFA] 230-21 mcg/actuation HFA aerosol inhaler 2 puff INHALATION BID calcium carbonate-vitamin D3 600 mg-10 mcg (400 unit) tablet 1 tab PO BID Interventions: [place]-Suicide Risk Severity Scale Last Done: 11/05/24 21:08 Print Language: Bulgarian
[2024-11-05 21:05] VITALS: BP 124/97; PULSE 108; O2SAT 100; BMI 38.4
[2024-11-05] MEDS: LORazepam 1 MG TABLET 2 MG PO (21:06)
[2024-11-05 21:23] LABS: UPreg QC Valid YES; Urine Pregnancy NEGATIVE (NEGATIVE)
[2024-11-05 21:32] LABS: Amphetamine Screen Urine Not Detected (Not Detect); Barbiturates, Urine Not Detected (Not Detect); Benzodiazepines Screen Urine Not Detected (Not Detect); Buprenorphine Scr Not Detected (Not Detect); Cannabinoid Screen Urine POSITIVE (Not Detect); Cocaine Screen Urine Not Detected (Not Detect); Fentanyl, urine Not Detected (Not Detect); Methadone Screen, Urine Not Detected (Not Detect); Opiate Screen Urine Not Detected (Not Detect); Oxycodone Screen Urine Not Detected (Not Detect); Phencyclidine Screen Urine Not Detected (Not Detect)
--- NOTE | 2024-11-05 21:42 | MHC.EDTECH ---
belongings secured in locker 10
[2024-11-05 23:22] LABS: MANUAL DIFF FLAG NO
[2024-11-05 23:24] LABS: Basophils Percent Auto 0.5 % (0-2); Eosinophils Absolute Auto 0.1 X10*3/uL (0.0-0.4); Eosinophils Percent Auto 1.8 % (0-4); Hematocrit 34.2 % (37.0-47.0); Hemoglobin 11.4 g/dl (12.0-16.0); Imm Gran Abs Auto 0.01 X10*3/uL (0.00-0.03); Imm Gran Pct Auto 0.2 % (0.0-0.4); Lymphocytes Absolute Auto 1.6 X10*3/uL (1.2-4.9); Lymphocytes Percent Auto 27.3 % (20-40); Mean Corpuscular HGB Conc 33.3 g/dl (31.0-35.0); Mean Corpuscular Hemoglobin 29.6 pg (27.0-33.0); Mean Corpuscular Volume 88.8 fL (80.0-98.0); Mean Platelet Volume 10.7 fL (9.4-12.3); Monocytes Absolute Auto 0.5 X10*3/uL (0.1-1.2); Monocytes Percent Auto 8.6 % (2-11); Neutrophils Absolute Auto 3.5 x10*3/uL (2.0-8.3); Neutrophils Percent Auto 61.6 % (45-73); Platelet Count 238 X10*3/uL (160-400); Red Blood Count 3.85 X10*6/uL (4.20-5.50); White Blood Count 5.7 X10*3/uL (4.8-10.8)
[2024-11-05 23:46] LABS: Acetaminophen LAB < 3 mcg/mL (<30); Alanine Aminotransferase 10 U/L (0-31); Albumin Level 3.4 g/dL (3.5-5.0); Alkaline Phosphatase 45 U/L (39-117); Anion Gap 12 (12-20); Aspartate Amino Transferase 16 U/L (5-31); Bilirubin Total 0.2 mg/dL (0.0-1.0); Blood Urea Nitrogen 7 mg/dL (9-16); Calcium 9.2 mg/dL (8.4-10.2); Carbon Dioxide 19 mmol/L (22-29); Chloride 109 mmol/L (96-108); Estimated Glomerular Filt Rate > 60; Ethanol < 10 mg/dL; Glucose Random 75 mg/dL (60-115); Salicylate < 5.0 mg/dL (15-30); Sodium 136 mmol/L (135-145); Total Protein 6.5 g/dL (6.5-8.0)
[2024-11-06 00:17] VITALS: BP 97/64; PULSE 86; RESP 16; TEMP 36.3; O2SAT 95
[2024-11-06 06:00] VITALS: RESP 18
--- NOTE | 2024-11-06 06:41 | PC.NURSE ---
Patient slept through the night, no distress observed/reported, care team deposition is pending, no behavior and safety concerns, med rec completed/pending provider's approval, will continue to monitor
[2024-11-06] MEDS: Loratadine 10 MG TABLET PO (11:56)
[2024-11-06] MEDS: hydrOXYzine HCL 50 MG TABLET PO (11:56)
[2024-11-06] MEDS: Benztropine Mesylate 0.5 MG TABLET PO (11:56)
[2024-11-06] MEDS: Cholecalciferol (Vitamin D3) 25 MCG TABLET PO (11:56)
[2024-11-06] MEDS: DULoxetine HCl 60 MG CAPSULE.DR PO (11:56)
[2024-11-06] MEDS: LORazepam 1 MG TABLET PO (12:19)
--- NOTE | 2024-11-06 12:20 | PHA.MEDREC ---
Addendum entered by Zoe Fraser [facility] 11/06/24 13:21: Spoke with [facility] pharmacy who delivered Haloperidol deconate on 11/13/24 to facility, called facility ([phone]), NINA Moss last administered on 10/05/24. pt had an appt on 11/02/24, but this was cancelled by the client. Original Note: Pharmacy Consult ? Medication Reconciliation Pharmacy has REVIEWED the medication reconciliation completed by nursing. Spoke with pt to confirm they are no longer on the Breo inhaler, and just on Advair. Pt is on both Cymbalta 30 and 60mg. When asked about Haldol injection, pt states she is due for it, and but cannot confirm when, pharmacy claims shows it was last filled 10/26/24.
[2024-11-06] MEDS: cloNIDine HCL 0.1 MG TABLET PO (13:51)
--- NOTE | 2024-11-06 14:00 | PC.NURSE ---
patient ambulated off of unit, steady gait with belongings
== END 2024-11-06 14:00 | disposition home or self-care (01) ==
PROVIDERS: Physician Assistant; Emergency Provider Emergency Medicine; PCP Nurse Practitioner Family
DX: F32.A Depression, unspecified (principal); R45.851 Suicidal ideations; Z79.899 Other long term (current) drug therapy
CPT/HCPCS: 36415; 80053; 80143; 80179; 80307; 81025; 85025; 99284; S9485

== ENCOUNTER 2024-11-13 05:50 | Day surgery (SDC) | payer OTHER, SELFPAY ==
[2024-11-13] VITALS (8 sets, daily range): BP systolic 123–171; BP diastolic 62–94; PULSE 85–98; RESP 16–20; TEMP 36.2–36.8; O2SAT 94–100; BMI 39.8
[2024-11-13] MEDS: Lactated Ringers 1,000 ML 100 ML IVCONT (06:47)
--- NOTE | 2024-11-13 07:23 | MHC.SHP ---
Pre-Procedural Eval Section A - 24 Hr Update-Section A only Date of Service: 11/13/24 Section B - Complete if H&P > 30 days Chief Complaint: depression Details of Present Illness: pt states she has been feeling more stable Present Medications: see Short Stay Collaborative assessment Allergies: Allergies Allergy/AdvReac Type Severity Reaction Status Date / Time carbamazepine [From TEGRETOL] AdvReac Mild Nausea and Verified 11/05/24 21:07 Vomiting topiramate [From Topamax] AdvReac Mild Nausea and Verified 11/05/24 21:07 Vomiting Review of Systems Sugical H&P ROS: Negative: Constitution, Cardiovascular and Neurological and Yes, Specify: Respiratory (asthma intermittant sob ) and Psychiatric (mood improved occ aud helms) Exam Surgical H&P Exam: Normal: Heart, Normal: Lungs (some coarseness) and Normal: Extremities Exam Comment: 141/83 p 95 Plan Diagnosis/Plan: Unchanged I have reviewed the history and physical and performed a pertinent physical examination on my patient. No changes have occurred unless specified. Time Spent With Patient Time: Total time managing care of this patient today ____ minutes.
--- NOTE | 2024-11-13 07:28 | HO.ECTPROC ---
ECT Procedure Note Diagnosis/Treatment Date of Service: 11/13/24 Diagnosis: Major Depressive Disorder Previous ECT Date: 11/01/24 Treatment: Maintenance Interval Clinical Notes: pt reports no new medical concerns feels like ect cont to be quite helpful denies active si Time: Total time managing care of this patient today ____ minutes. ECT Settings Device: THYMATRON DGx Electrode Placement: Bitemporal Program/Pulse Width: 0.50 Energy Percent: 100 Seizure Duration By EEG (in seconds): 24 Medications Administration General Anesthetic: Etomidate (14) Muscle Relaxant: Succinylcholine (80) Airway Management Airway Management: Bag Mask Ventilation Treatment Recommendations No Changes Recommended: No change Pt Tolerated Procedure w/o Issue: Yes
== END 2024-11-13 09:16 | disposition home or self-care (01) ==
PROVIDERS: PCP Nurse Practitioner Family; Visit Provider Psychiatry & Neurology Psychiatry
PROC: (CPT 90870; principal; 2024-11-13 07:00)
DX: F33.2 Major depressive disorder, recurrent severe without psychotic features (principal); J44.9 Chronic obstructive pulmonary disease, unspecified; J45.20 Mild intermittent asthma, uncomplicated; Z79.51 Long term (current) use of inhaled steroids; Z79.899 Other long term (current) drug therapy; F17.210 Nicotine dependence, cigarettes, uncomplicated; Z88.8 Allergy status to other drugs, medicaments and biological substances
CPT/HCPCS: 90870; J0330; J1642; J2405; J2704

== ENCOUNTER → 2024-11-13 05:50 | Outpatient (BNV) | payer OTHER, SELFPAY | PROVIDERS: PCP Nurse Practitioner Family; Visit Provider Psychiatry & Neurology Psychiatry | DX: F33.3 Major depressive disorder, recurrent, severe with psychotic symptoms (principal) | CPT/HCPCS: 90870 ==

== ENCOUNTER 2024-11-18 13:25 | Emergency (ER) | payer OTHER, SELFPAY ==
[2024-11-18 13:34] VITALS: BP 146/84; PULSE 99; RESP 14; O2SAT 99; BMI 44.4
--- OUTSIDE RECORDS SUMMARY | 2024-11-18 13:48 | XMS_ITS | Clinical Summary ---
Author Organization [facility] Address [address] [place] [address] Care Team Providers Care Consulting Analyst Name Role Phone Marcela Gaviria MD Primary Care Provider [phone] Allergies Active Allergy Reactions Criticality Noted Date Comments Carbamazepine Nausea And Vomiting 10/21/2005 Tegretol dizziness Topiramate Nausea And Vomiting 10/21/2005 Topamax Medications acetaminophen (TYLENOL) 500 mg tablet Take 1 Tablet by mouth every 6 hours as needed for Pain. 12/21/19 24 Active albuterol sulfate (ProAir RespiClick) 90 mcg/actuation aerosol powdr breath activated Inhale into the lungs. Active bacitracin 500 unit/gram ointment Apply twice daily to wounds 10/15/19 24 Active benztropine (COGENTIN) 0.5 mg tablet Take 1 Tablet by mouth 2 times daily. 01/03/20 22 Active cetirizine (ZyrTEC) 10 mg tablet Take 1 Tablet by mouth daily. 10/26/19 24 Active cloNIDine (CATAPRES) 0.1 mg tablet Take 1 Tablet by mouth. 11/23/19 20 Active diclofenac (VOLTAREN) 1 % topical gel Apply 0.5 g topically 2 times daily as needed (forleft knee pain). 05/04/20 23 Active diphenhydrAMIN E (BENADRYL) 50 mg capsule Take 2 Capsules by mouth. 01/03/20 22 Active DULoxetine (CYMBALTA) [address] capsule 10/16/19 23 Active fluticasone propion-salmet Rozina (Advair HFA) 230-21 mcg/actuation inhaler Inhale 1 Puff into the lungs 2 times daily. 11/10/19 23 Active haloperidoL (HALDOL) 5 mg tablet Take 1 Tab by mouth 2 times daily as needed. 03/22/20 19 Active haloperidol decanoate (HALDOL DECANOATE) 100 mg/mL injection 11/04/19 23 Active hydrOXYzine pamoate (VISTARIL) 50 mg capsule Take 50 mg by mouth 3 times daily as needed. Active lithium (LITHOBID) 300 mg CR tablet Take 600 mg by mouth at bedtime. Active LORazepam (ATIVAN) 1 mg tablet Take 1 mg by mouth 3 times daily. Active omeprazole (PriLOSEC) [address] capsule Take 1 Capsule by mouth daily. 10/26/19 24 Active prazosin (MINIPRESS) 1 mg capsule 04/27/20 23 Active prazosin (MINIPRESS) 5 mg capsule Take 5 mg by mouth at bedtime. Active traZODone (DESYREL) 100 mg tablet 11/05/19 23 Active zolpidem (AMBIEN) 10 mg tablet 04/27/20 23 Active cholecalcifero l (VITAMIN D-3) 25 mcg (1,000 unit) tablet Take 1 Tablet by mouth daily. 11/08/19 24 Active fluticasone propion/salmet rozina (ADVAIR HFA INHL) Inhale into the lungs. Active polyethylene glycol (PEG) 17 gram/dose oral powder POUR 17 GRAMS INTO 8OZ OF WATER OR BEVERAGE AND TAKE BY MOUTH DAILY needed FOR constipation 510 g 11/16/19 25 Active polyethylene glycol (PEG) 17 gram/dose oral powder polyethylene glycol (MiraLax) 17 GM/SCOOP powder Take 17 g by mouth daily as needed for Constipation 10/14/19 24 025 Discontinued Active Problems Problem Noted Date Diagnosed Date [...] Administration Dates Next Due DTP 08/03/1991, 8,03/21/1987,01/24,1986 [id number] (Pentacel) 2mo to less than 5yo 11/21/1988 [...] us 2) infection Borderline personality disor thomas ([facility]) 03/07/2010 DX:Borderline personality di sorder ([facility]) Drug abuse 05/16/2010 DX:Drug abuse ([facility]) Irritable bowel syndrome with diarrhea 12/27/2015 DX:Irritable bowel syndrome with diarrhea Allergic rhinitis 03/29/2007 DX:Allergic rh initis Asthma 01/28/2006 DX:Asthma; COMME NT: never intubated BMI 45.0-49.9, adult ([facility]) 01/06/2017 D X:BMI 45.0-49.9, adult ([facility]) Chronic constipation 01/30/2013 DX:Chronic constipation [...] Date Smoking Tobacco: Every Day Cigarettes 0.5 21.3 Started: 08/16/2003 Smokeless Tobacco: Never Alcohol Use [...] 2024 11/10/2020, 10/28/2020, 09/20/2020, Additional history exists Depression Screening 11/01/2024 11/02/2023 Influenza Vaccine (Season Ended) 2025 06/11/2023, 05/02/2021, 05/09/2020, Additional history exists DTaP,Tdap,and Td Vaccines (12 - Td or [...] Health Maintenance Results * Depression Screening (11/02/2023) Pathologist [facility] Depression Screening abstracted [facility] Provider HEALTH MAINTENANCE Final Result * Lipid panel (10/07/2022) [facility] LDL/HDL Ratio 3 0 - 4 Triglycerides 50 0 - 150 mg/dL Cholesterol 150 0 - 200 mg/dL HDL 55 >=40 mg/dL LDL Cholesterol 85 0 - 100 mg/dL Blood Venous blood specimen / Unknown Historical Provider LAB BLOOD ORDERABLES Rose Marie l Result * HIV Screening (02/03/2021) Pathologist [facility] HIV Screening abstracted [facility] Provider HEALTH MAINTENANCE Final Result * Hepatitis C Screening (02/03/2021) Pathologist [facility] Hepatitis C Screening abstracted Historical Provider HEALTH MAINTENANCE Final Result * Cervical Cancer Screening: HPV (01/21/2021) Pathologist [facility] Cervical Cancer Screening: HPV positive, abstracted Historical Provider HEALTH MAINTENANCE Final Result from Last 3 Months or Most Recently Relevant to Health Maintenance Care Teams Consulting Analyst Relationship Specialty Start Date End Date Marcela Gaviria MD [address] [place] [id number] PCP - General Internal Medicine 12/24/20
[2024-11-18 14:05] LABS: Appearance Urine Clear; Color Urine Yellow; Glucose Urine UA Negative (Negative); Leukocyte Esterase Urine Negative (Negative); Nitrite Urine Negative (Negative); UMIC TRIGGER UACC YES; Urine Blood Moderate (2+) (Negative); Urine Ketones Negative (Negative); Urine Protein Negative (Neg-Trace)
[2024-11-18 14:15] LABS: Amphetamine Screen Urine Not Detected (Not Detect); Barbiturates, Urine Not Detected (Not Detect); Benzodiazepines Screen Urine Not Detected (Not Detect); Buprenorphine Scr Not Detected (Not Detect); Cannabinoid Screen Urine POSITIVE (Not Detect); Cocaine Screen Urine Not Detected (Not Detect); Fentanyl, urine Not Detected (Not Detect); Methadone Screen, Urine Not Detected (Not Detect); Opiate Screen Urine Not Detected (Not Detect); Oxycodone Screen Urine Not Detected (Not Detect); Phencyclidine Screen Urine Not Detected (Not Detect)
[2024-11-18 14:17] LABS: Bacteria Urine Trace (None Seen); Hyaline Casts Urine 0-2 /LPF (0-2); WBC Urine 0-5 /HPF (0-5)
[2024-11-18] MEDS: diphenhydrAMINE HCL 50 MG/ML VIAL IM (14:33)
[2024-11-18] MEDS: Haloperidol Lactate 5 MG/ML VIAL IM (14:34)
[2024-11-18] MEDS: LORazepam 2 MG/ML VIAL IM (14:34)
--- NOTE | 2024-11-18 14:38 | ED.PSYCH ---
HPI - Psych General Chief Complaint: Psychiatric Symptoms Stated Complaint: AH TO HARM SELF WITH GLASS PER EMS Time Seen by Provider: 11/18/24 13:40 History of Present Illness HPI Narrative: patient is a 39-year-old female with a history of major depression borderline personality history of auditory hallucinations presented today with having hallucinations again. The voices are telling her to cut herself. Patient denies any homicidal ideations. Did not act on it. Came to the ED for help. Related Data Home Medications ?Medication ?Instructions ?Recorded ?Confirmed benztropine 0.5 mg tablet 0.5 mg PO BID 04/30/24 11/06/24 clonidine HCl 0.1 mg tablet 0.1 mg PO TID 04/30/24 11/06/24 diphenhydramine HCl 50 mg capsule 100 mg PO BEDTIME insomnia 04/30/24 11/06/24 (Banophen) omeprazole 20 mg capsule,delayed 20 mg PO Q OTHER DAY 04/30/24 11/06/24 release prazosin 5 mg capsule 15 mg PO BEDTIME 04/30/24 11/06/24 trazodone 100 mg tablet 200 mg PO BEDTIME insomnia 04/30/24 11/06/24 multivitamin 1 tab PO DAILY 05/17/24 11/06/24 zolpidem 10 mg tablet 10 mg PO BEDTIME insomnia 05/17/24 11/06/24 cholecalciferol (vitamin D3) 25 25 mcg PO DAILY 07/29/24 11/06/24 mcg (1,000 unit) tablet (Vitamin D3) haloperidol 5 mg tablet 5 mg PO TID 08/15/24 11/06/24 haloperidol decanoate 100 mg/mL 75 mg IM Q28D 08/15/24 11/06/24 intramuscular solution nicotine (polacrilex) 2 mg gum 2 mg PO Q2H PRN Cravings 08/15/24 11/06/24 prazosin 1 mg capsule 1 mg PO BEDTIME 08/15/24 11/06/24 calcium 600 mg (as 1 tab PO BID 11/02/24 11/06/24 carbonate)-vitamin D3 10 mcg (400 unit) tablet fluticasone propionate 230 2 puff inhalation BID 11/02/24 11/06/24 mcg-salmeterol 21 mcg/actuation HFA inhaler (Advair HFA) cetirizine 10 mg tablet 10 mg PO DAILY 11/06/24 11/06/24 duloxetine 30 mg capsule,delayed 30 mg PO DAILY 11/06/24 11/06/24 release Previous Rx's ?Medication ?Instructions ?Recorded lorazepam 1 mg tablet 1 mg PO TID PRN anxiety/agitation 05/22/24 #0 tabs albuterol sulfate 90 mcg/actuation 2 puff inhalation Q4-6H PRN 08/30/24 aerosol inhaler shortness of breath or wheezing #6.7 grams duloxetine 60 mg capsule,delayed 60 mg PO DAILY 30 days #30 caps 10/03/24 release hydroxyzine HCl 50 mg tablet 50 mg PO Q6H PRN mild anxiety 30 10/03/24 days #90 tabs lithium carbonate 450 mg 900 mg (2 x 450 mg) PO BEDTIME 10/17/24 tablet,extended release days #60 tabs Allergies Allergy/AdvReac Type Severity Reaction Status Date / Time carbamazepine [From TEGRETOL] AdvReac Mild Nausea and Verified 11/18/24 13:36 Vomiting topiramate [From Topamax] AdvReac Mild Nausea and Verified 11/18/24 13:36 Vomiting Review of Systems Review of Systems: Positive wanting to cut herself Yes all other systems are reviewed and are negative [facility] Past Medical History Attestation statement: The following information was validated with the patient. Medical History Depression Schizoaffective disorder, depressive type Depression with suicidal ideation MDD (major depressive disorder), recurrent, severe, with psychosis Port-A-Cath in place History of electroconvulsive therapy COVID-19 COVID-19 Sprain of left foot Chronic post-traumatic stress disorder (PTSD) COPD (chronic obstructive pulmonary disease) Increased BMI GERD (gastroesophageal reflux disease) Recurrent major depression-severe Acute post-traumatic stress disorder Injury, self-inflicted Suicidal ideation Self-harming behavior Intentional self-harm Suicidal ideation Borderline personality disorder Schizoaffective disorder Adjustment disorder Asthma Depression Anxiety PTSD (post-traumatic stress disorder) Family History Family History Mother Brain cancer Other No family history of cardiac disease Social History Social History Household Members: Other Household Members Other:: group housemates Housing: Other Housing Other:: [facility] intermediate Do you presently have visiting nurse or other home services: No Unable to assess alcohol history related to: Unable to respond Alcohol intake: current Alcohol intake frequency: does not drink Patient Tobacco Use Status: Current someday Tobacco user Tobacco use type: Cigarette Cigarette Packs Per Day: 0.5 Cigarettes Per Day: 8 Years Smoked: 20 Smoked in Last 30 Days: Yes e-Cigarette/Vaping Use: Never Used Second Hand Smoke Exposure: No Use of substances other than those prescribed or required for medical reasons: No Substance Use Type: Marijuana Advance Directives: No Advance Directives Information Provided: Yes service: No Current occupation: rt handed Sexual orientation: Straight/Heterosexual Physical Exam Vital Signs: Vital Signs: Last Vital Signs Resp 11/18/24 13:34 BMI result Body Mass Index 44.4 Appearance: Alert. Oriented X3. No acute distress. Eyes: Pupils equal, round and reactive to light. ENT: Pharynx normal. Neck: Normal inspection. Neck supple. No lymph nodes noted. No crepitus CVS: Normal heart rate and rhythm. Pulses normal. Normal S1 and S2 Respiratory: No respiratory distress. Breath sounds normal. No Wheezing. No rales Abdomen: Soft and nontender. No rigidity. No distention. good BS x4 Skin: Skin warm and dry. Normal skin color. Normal skin turgor. Extremities: No lower extremity edema. Neurovascular intact to all extremities. No Lacerations. No Rash Neuro: Oriented X 3. No motor deficit. No sensory deficit. Moving all extermities. No slurred speech cranial nerves grossly intact Medications Administered Discontinued Medications Generic Name Dose Route Start Last Admin Trade Name Freq PRN Reason Stop Dose Admin Diphenhydramine HCl 50 mg 11/18/24 14:26 11/18/24 14:33 Diphenhydramine Hcl 50 Mg/Ml Vial IM 11/18/24 14:27 50 mg ONCE ONE Administration Haloperidol Lactate 5 mg 11/18/24 14:11/18/24 14:34 Haloperidol Lactate 5 Mg/Ml Vial IM 11/18/24 14:27 5 mg ONCE ONE Administration Lorazepam 2 mg 11/18/24 14:11/18/24 14:34 Lorazepam 2 Mg/Ml Vial IM 11/18/24 14:27 2 mg ONCE ONE Administration Medical Decision Making Medical Decision Making MDM Narrative: patient well known to the department. Now having auditory hallucinations again. Will get crisis to evaluate patient. A dose of Haldol Ativan and Benadryl was given for the acute hallucination. Currently in stable condition. Differential Diagnosis Differential Diagnoses: The differential diagnosis associated with the presentation includes Hallucination, schizoaffective disorder Admission/Observation Consideration of admission/observation: Escalation of care including admission/observation considered Consult Healthcare Provider Management of the patient was discussed with: Server Manager ( care team) Lab Data Labs: Lab Results 11/18/24 Range/Units 13:54 Urine Color Yellow Urine Appearance Clear Urine pH 7.0 (5.0-9.0) Ur Specific [place] 1.010 (1.005-1.025) Urine Protein Negative (Neg-Trace) mg/dL Urine Glucose (UA) Negative (Negative) mg/dL Urine Ketones Negative (Negative) mg/dL Urine Blood Moderate (2+) H (Negative) Urine Nitrite Negative (Negative) Ur Leukocyte Esterase Negative (Negative) Urine RBC 3-5 H (0-2) /HPF Urine WBC 0-5 (0-5) /HPF Ur Squamous Epith Cells 6-10 (0-2) /HPF Urine Bacteria Trace (None Seen) Hyaline Casts 0-2 (0-2) /LPF Urine Opiates Screen Not Detected (Not Detect) Ur Buprenorphine Scrn Not Detected (Not Detect) ng/mL Ur Oxycodone Screen Not Detected (Not Detect) ng/mL Urine Methadone Screen Not Detected (Not Detect) ng/mL Urine Fentanyl Screen Not Detected (Not Detect) Ur Barbiturates Screen Not Detected (Not Detect) Ur Phencyclidine Scrn Not Detected (Not Detect) Ur Amphetamines Screen Not Detected (Not Detect) U Benzodiazepines Scrn Not Detected (Not Detect) Urine Cocaine Screen Not Detected (Not Detect) U Marijuana (THC) Screen POSITIVE H (Not Detect) Independent Historian Clinical information obtained from an independent historian. History obtained from or confirmed by: EMS External Record Review External record reviewed: Inpatient record Chronic Conditions schizoaffective disorder Social Determinants Patient?s care significantly limited by Social Determinants of Health including: Problems related to primary support group Discharge Plan Discharge Clinical Impression: Auditory hallucination Patient Disposition: Still a Patient Prescriptions: No Action clonidine HCl 0.1 mg tablet 0.1 mg PO TID Rx Instructions: takes at 0800, 1400 and 2000 benztropine 0.5 mg tablet 0.5 mg PO BID diphenhydramine HCl [Banophen] 50 mg capsule 100 mg PO BEDTIME prazosin 5 mg capsule 15 mg PO BEDTIME trazodone 100 mg tablet 200 mg PO BEDTIME omeprazole 20 mg capsule,delayed release(DR/EC) 20 mg PO Q OTHER DAY cholecalciferol (vitamin D3) [Vitamin D3] 25 mcg (1,000 unit) tablet 25 mcg PO DAILY haloperidol 5 mg tablet 5 mg PO TID nicotine (polacrilex) 2 mg gum 2 mg PO Q2H PRN (Reason: Cravings) prazosin 1 mg capsule 1 mg PO BEDTIME haloperidol decanoate 100 mg/mL solution 75 mg IM Q28D albuterol sulfate 90 mcg/actuation HFA aerosol inhaler 2 puff inhalation Q4-6H PRN (Reason: shortness of breath or wheezing) Qty: 6.7 0RF hydroxyzine HCl 50 mg Tablet 50 mg PO Q6H PRN (Reason: mild anxiety) 30 Days Qty: 90 0RF duloxetine 60 mg capsule,delayed release(DR/EC) 60 mg PO DAILY 30 Days Qty: 30 0RF Rx Instructions: take with 30mg capsule zolpidem 10 mg tablet 10 mg PO BEDTIME multivitamin Tablet 1 tab PO DAILY lorazepam 1 mg Tablet 1 mg PO TID PRN (Reason: anxiety/agitation) Qty: 0 0RF lithium carbonate 450 mg Tablet Extended Release 900 mg PO BEDTIME 30 Days Qty: 60 0RF fluticasone propion-salmeterol [Advair HFA] 230-21 mcg/actuation HFA aerosol inhaler 2 puff INHALATION BID calcium carbonate-vitamin D3 600 mg-10 mcg (400 unit) tablet 1 tab PO BID cetirizine 10 mg tablet 10 mg PO DAILY duloxetine 30 mg capsule,delayed release(DR/EC) 30 mg PO DAILY Interventions: Lynn-Suicide Risk Severity Scale Last Done: 11/18/24 13:37 Print Language: [place] Islander
[2024-11-18 17:18] VITALS: BP 142/84; PULSE 94; RESP 16; TEMP 36.9; O2SAT 96
== END 2024-11-18 17:28 | disposition home or self-care (01) ==
PROVIDERS: Emergency Provider Emergency Medicine Emergency Medical Services; PCP Internal Medicine
DX: R44.0 Auditory hallucinations (principal); F33.3 Major depressive disorder, recurrent, severe with psychotic symptoms; F60.3 Borderline personality disorder; F43.12 Post-traumatic stress disorder, chronic; F43.20 Adjustment disorder, unspecified; J45.909 Unspecified asthma, uncomplicated; Z79.899 Other long term (current) drug therapy
CPT/HCPCS: 80307; 81001; 96372; 99284; J1200; J1630; J2060; S9485

== ENCOUNTER 2024-11-19 19:56 | Emergency (ER) | payer OTHER, SELFPAY ==
[2024-11-19 20:03] VITALS: BP 148/76; PULSE 94; O2SAT 98
[2024-11-19 20:19] VITALS: BMI 39.4
[2024-11-19 20:42] VITALS: BP 103/63; PULSE 71; RESP 16; TEMP 36.7; O2SAT 96
[2024-11-19 20:45] LABS: MANUAL DIFF FLAG NO
[2024-11-19 20:47] LABS: Basophils Percent Auto 0.3 % (0-2); Eosinophils Absolute Auto 0.1 X10*3/uL (0.0-0.4); Eosinophils Percent Auto 1.3 % (0-4); Hematocrit 33.4 % (37.0-47.0); Hemoglobin 11.1 g/dl (12.0-16.0); Imm Gran Abs Auto 0.01 X10*3/uL (0.00-0.03); Imm Gran Pct Auto 0.1 % (0.0-0.4); Lymphocytes Absolute Auto 1.8 X10*3/uL (1.2-4.9); Lymphocytes Percent Auto 25.3 % (20-40); Mean Corpuscular HGB Conc 33.2 g/dl (31.0-35.0); Mean Corpuscular Hemoglobin 29.1 pg (27.0-33.0); Mean Corpuscular Volume 87.7 fL (80.0-98.0); Mean Platelet Volume 10.4 fL (9.4-12.3); Monocytes Absolute Auto 0.5 X10*3/uL (0.1-1.2); Neutrophils Absolute Auto 4.6 x10*3/uL (2.0-8.3); Platelet Count 303 X10*3/uL (160-400); Red Blood Count 3.81 X10*6/uL (4.20-5.50); Red Cell Distribution Width 14.2 % (11.0-16.0)
[2024-11-19 20:49] LABS: Amphetamine Screen Urine Not Detected (Not Detect); Barbiturates, Urine Not Detected (Not Detect); Benzodiazepines Screen Urine Not Detected (Not Detect); Buprenorphine Scr Not Detected (Not Detect); Cannabinoid Screen Urine POSITIVE (Not Detect); Cocaine Screen Urine Not Detected (Not Detect); Fentanyl, urine Not Detected (Not Detect); Methadone Screen, Urine Not Detected (Not Detect); Opiate Screen Urine Not Detected (Not Detect); Oxycodone Screen Urine Not Detected (Not Detect); Phencyclidine Screen Urine Not Detected (Not Detect)
--- NOTE | 2024-11-19 20:50 | ED.PSYCH ---
HPI - Psych General Chief Complaint: Psychiatric Symptoms Stated Complaint: SI Time Seen by Provider: 11/19/24 20:15 Source: patient Mode of arrival: EMS Limitations: no limitations History of Present Illness ED Provider: HPI Narrative: Patient's history of patient's depressive disorder PTSD adjustment disorder frequently been to our hospital for multiple complaints comes here as she does not feel safe feels suicidal no plans patient is trying to Bang her head against a wall in her stress Related Data Home Medications ?Medication ?Instructions ?Recorded ?Confirmed benztropine 0.5 mg tablet 0.5 mg PO BID 04/30/24 11/06/24 clonidine HCl 0.1 mg tablet 0.1 mg PO TID 04/30/24 11/06/24 diphenhydramine HCl 50 mg capsule 100 mg PO BEDTIME insomnia 04/30/24 11/06/24 (Banophen) omeprazole 20 mg capsule,delayed 20 mg PO Q OTHER DAY 04/30/24 11/06/24 release prazosin 5 mg capsule 15 mg PO BEDTIME 04/30/24 11/06/24 trazodone 100 mg tablet 200 mg PO BEDTIME insomnia 04/30/24 11/06/24 multivitamin 1 tab PO DAILY 05/17/24 11/06/24 zolpidem 10 mg tablet 10 mg PO BEDTIME insomnia 05/17/24 11/06/24 cholecalciferol (vitamin D3) 25 25 mcg PO DAILY 07/29/24 11/06/24 mcg (1,000 unit) tablet (Vitamin D3) haloperidol 5 mg tablet 5 mg PO TID 08/15/24 11/06/24 haloperidol decanoate 100 mg/mL 75 mg IM Q28D 08/15/24 11/06/24 intramuscular solution nicotine (polacrilex) 2 mg gum 2 mg PO Q2H PRN Cravings 08/15/24 11/06/24 prazosin 1 mg capsule 1 mg PO BEDTIME 08/15/24 11/06/24 calcium 600 mg (as 1 tab PO BID 11/02/24 11/06/24 carbonate)-vitamin D3 10 mcg (400 unit) tablet fluticasone propionate 230 2 puff inhalation BID 11/02/24 11/06/24 mcg-salmeterol 21 mcg/actuation HFA inhaler (Advair HFA) cetirizine 10 mg tablet 10 mg PO DAILY 11/06/24 11/06/24 duloxetine 30 mg capsule,delayed 30 mg PO DAILY 11/06/24 11/06/24 release Previous Rx's ?Medication ?Instructions ?Recorded lorazepam 1 mg tablet 1 mg PO TID PRN anxiety/agitation 05/22/24 #0 tabs albuterol sulfate 90 mcg/actuation 2 puff inhalation Q4-6H PRN 08/30/24 aerosol inhaler shortness of breath or wheezing #6.7 grams duloxetine 60 mg capsule,delayed 60 mg PO DAILY 30 days #30 caps 10/03/24 release hydroxyzine HCl 50 mg tablet 50 mg PO Q6H PRN mild anxiety 30 10/03/24 days #90 tabs lithium carbonate 450 mg 900 mg (2 x 450 mg) PO BEDTIME 10/17/24 tablet,extended release days #60 tabs Allergies Allergy/AdvReac Type Severity Reaction Status Date / Time carbamazepine [From TEGRETOL] AdvReac Mild Nausea and Verified 11/19/24 20:20 Vomiting topiramate [From Topamax] AdvReac Mild Nausea and Verified 11/19/24 20:20 Vomiting Review of Systems Review of Systems: Yes all other systems are reviewed and are negative PMFSH Past Medical History Medical History Depression Schizoaffective disorder, depressive type Depression with suicidal ideation MDD (major depressive disorder), recurrent, severe, with psychosis Port-A-Cath in place History of electroconvulsive therapy COVID-19 COVID-19 Sprain of left foot Chronic post-traumatic stress disorder (PTSD) COPD (chronic obstructive pulmonary disease) Increased BMI GERD (gastroesophageal reflux disease) Recurrent major depression-severe Acute post-traumatic stress disorder Injury, self-inflicted Suicidal ideation Self-harming behavior Intentional self-harm Suicidal ideation Borderline personality disorder Schizoaffective disorder Adjustment disorder Asthma Depression Anxiety PTSD (post-traumatic stress disorder) Family History Family History Mother Brain cancer Other No family history of cardiac disease Social History Social History Household Members: Other Household Members Other:: group housemates Housing: Other Housing Other:: [facility] care home Do you presently have visiting nurse or other home services: No Unable to assess alcohol history related to: Unable to respond Alcohol intake: current Alcohol intake frequency: does not drink Patient Tobacco Use Status: Current someday Tobacco user Tobacco use type: Cigarette Cigarette Packs Per Day: 0.5 Cigarettes Per Day: 8 Years Smoked: 20 Smoked in Last 30 Days: Yes e-Cigarette/Vaping Use: Never Used Second Hand Smoke Exposure: No Use of substances other than those prescribed or required for medical reasons: No Substance Use Type: Marijuana Advance Directives: No Advance Directives Information Provided: Yes Patient : No service: No Current occupation: rt handed Sexual orientation: Straight/Heterosexual Physical Exam Vital Signs: Vital Signs: Last Vital Signs Temp 98.2 F 11/19/24 22:36 Pulse 81 11/19/24 22:36 Resp 16 11/20/24 06:10 BP 104/75 11/19/24 22:36 Pulse Ox 96 11/19/24 22:36 O2 Del Method Room Air 11/19/24 22:36 BMI result Body Mass Index 39.4 Appearance: Alert. Oriented X3. No acute distress. Eyes: PERRLA, No Nystagmus ENT: Pharynx normal. Oral Mucosa moist Neck: Normal inspection. Neck supple. CVS: Normal heart rate and rhythm. Pulses normal. Respiratory: No respiratory distress. Equal air entry bilateral, no wheezing/rales/rhonchi Abdomen: Soft and nontender. Bowel sounds are present, no mass palpable, no CVA tenderness Skin: Skin warm and dry. Normal skin color. Normal skin turgor. Extremities: No lower extremity edema. No calf tenderness psych: Feel depressed and suicidal no plan no hallucinations at this time Neuro: Oriented X 3. No motor deficit. No sensory deficit.No cerebellar signs , cranial nerves II-XII intact Course Course Course Narrative: 2am, 11/20/24 patient has been in physician observation starting 2am pending CARE team GABRIEL Reevaluation(s) Reevaluation #1: Time: 07:36 Date: 11/20/24 Provider: Cassandra Gonzales, DO Patient in physician observation for psychiatric evaluation.? No acute events reported overnight. No current complaints. VS stable.? pending CARE team evaluation. Will continue to monitor. Reevaluation #2: Time: 09:48 Date: 11/20/24 Provider: Cassandra Gonzales DO Physician observation ended at 948am Patient has been cleared for discharge by the CARE team. Will follow up as an outpatient. Medications Administered Discontinued Medications Generic Name Dose Route Start Last Admin Trade Name [place] PRN Reason Stop Dose Admin Lorazepam 1 mg 11/19/24 20:50 11/19/24 21:23 Lorazepam 1 Mg Tablet PO 11/19/24 20:51 1 mg ONCE ONE Administration Medical Decision Making Medical Decision Making [facility] Narrative: Patient with significant depression does not feel safe at home will get care team involved for further management Lab Data [facility] Lab Attestation statement: I reviewed the patient's lab results. 11/19/24 20:42 11/19/24 20:42 Labs: Lab Results 11/19/24 11/19/24 Range/Units 20:23 20:42 WBC 7.0 (4.8-10.8) X10*3/uL RBC 3.81 L (4.20-5.50) X10*6/uL Hgb 11.1 L (12.0-16.0) g/dl Hct 33.4 L (37.0-47.0) % MCV 87.7 (80.0-98.0) fL MCH 29.1 (27.0-33.0) pg MCHC 33.2 (31.0-35.0) g/dl RDW 14.2 (11.0-16.0) % Plt Count 303 D (160-400) X10*3/uL MPV 10.4 (9.4-12.3) fL Immature Gran % (Auto) 0.1 (0.0-0.4) % Neut % (Auto) 66.0 (45-73) % Lymph % (Auto) 25.3 (20-40) % [place] % (Auto) 7.0 (2-11) % Eos % (Auto) 1.3 (0-4) % Baso % (Auto) 0.3 (0-2) % Lymph # (Auto) 1.8 (1.2-4.9) X10*3/uL [place] # (Auto) 0.5 (0.1-1.2) X10*3/uL Eos # (Auto) 0.1 (0.0-0.4) X10*3/uL Baso # (Auto) 0.0 (0.0-0.2) X10*3/uL Abs Immat Gran (auto) 0.01 (0.00-0.03) X10*3/uL Absolute Neuts (auto) 4.6 (2.0-8.3) x10*3/uL Absolute Nucleated RBC 0.000 (0.0-0.012) X10*3/uL Nucleated RBC % (auto) 0.0 (0.0-0.2) /100WBC Sodium 138 (135-145) mmol/L Potassium 4.0 (3.3-5.1) mmol/L Chloride 108 (96-108) mmol/L Carbon Dioxide 24 (22-29) mmol/L Anion Gap 10 L (12-20) BUN 13 (9-16) mg/dL Creatinine 0.69 (0.5-1.4) mg/dL Estim Creat Clear Calc 106.9 Estimated GFR > 60 Random Glucose 91 (60-115) mg/dL Calcium 9.0 (8.4-10.2) mg/dL Urine Opiates Screen Not Detected (Not Detect) Ur Buprenorphine Scrn Not Detected (Not Detect) ng/mL Ur Oxycodone Screen Not Detected (Not Detect) ng/mL Urine Methadone Screen Not Detected (Not Detect) ng/mL Urine Fentanyl Screen Not Detected (Not Detect) Ur Barbiturates Screen Not Detected (Not Detect) Ur Phencyclidine Scrn Not Detected (Not Detect) Ur Amphetamines Screen Not Detected (Not Detect) U Benzodiazepines Scrn Not Detected (Not Detect) Urine Cocaine Screen Not Detected (Not Detect) U Marijuana (THC) Screen POSITIVE H (Not Detect) Discharge Plan Discharge Clinical Impression: MDD (major depressive disorder), recurrent, severe, with psychosis, Suicidal ideation Patient Disposition: Home, Self-Care Instructions: Depression (ED) Additional Instructions: You were seen in our Emergency Department today for treatment of a behavioral health issue. It is important after your visit that you follow up with either your behavioral health provider or a primary care doctor within 7 days.? If you have trouble finding a therapist you can reach out to [address] [phone] The National Suicide and Crisis Lifeline can be reached 7 days a week 24 hours a day.? Call 988 to speak with someone.? Return for any worsening symptoms or concerns such as thoughts of self harm or harm to others. Please call 911 if you feel your mental health is worsening.? Prescriptions: No Action clonidine HCl 0.1 mg tablet 0.1 mg PO TID Rx Instructions: takes at 0800, 1400 and 2000 benztropine 0.5 mg tablet 0.5 mg PO BID diphenhydramine HCl [Banophen] 50 mg capsule 100 mg PO BEDTIME prazosin 5 mg capsule 15 mg PO BEDTIME trazodone 100 mg tablet 200 mg PO BEDTIME omeprazole 20 mg capsule,delayed release(DR/EC) 20 mg PO Q OTHER DAY cholecalciferol (vitamin D3) [Vitamin D3] 25 mcg (1,000 unit) tablet 25 mcg PO DAILY haloperidol 5 mg tablet 5 mg PO TID nicotine (polacrilex) 2 mg gum 2 mg PO Q2H PRN (Reason: Cravings) prazosin 1 mg capsule 1 mg PO BEDTIME haloperidol decanoate 100 mg/mL solution 75 mg IM Q28D albuterol sulfate 90 mcg/actuation HFA aerosol inhaler 2 puff inhalation Q4-6H PRN (Reason: shortness of breath or wheezing) Qty: 6.7 0RF hydroxyzine HCl 50 mg Tablet 50 mg PO Q6H PRN (Reason: mild anxiety) 30 Days Qty: 90 0RF duloxetine 60 mg capsule,delayed release(DR/EC) 60 mg PO DAILY 30 Days Qty: 30 0RF Rx Instructions: take with 30mg capsule zolpidem 10 mg tablet 10 mg PO BEDTIME multivitamin Tablet 1 tab PO DAILY lorazepam 1 mg Tablet 1 mg PO TID PRN (Reason: anxiety/agitation) Qty: 0 0RF lithium carbonate 450 mg Tablet Extended Release 900 mg PO BEDTIME 30 Days Qty: 60 0RF fluticasone propion-salmeterol [Advair HFA] 230-21 mcg/actuation HFA aerosol inhaler 2 puff INHALATION BID calcium carbonate-vitamin D3 600 mg-10 mcg (400 unit) tablet 1 tab PO BID cetirizine 10 mg tablet 10 mg PO DAILY duloxetine 30 mg capsule,delayed release(DR/EC) 30 mg PO DAILY Interventions: Love-Suicide Risk Severity Scale Last Done: 11/19/24 20:22 Print Language: Ukrainian
--- OUTSIDE RECORDS SUMMARY | 2024-11-19 20:59 | XMS_ITS | Clinical Summary ---
Author Organization [facility] Address [address] [place] [address] Care Team Providers Care Livestock Laborer Name Role Phone Marcela Gaviria MD Primary Care Provider [phone] Allergies Active Allergy Reactions Criticality Noted Date [...] Administration Dates Next Due DTP 08/03/1991, 8,03/21/1987,01/24,1986 [id number] (Pentacel) 2mo to less than 5yo 11/21/1988 [...] us 2) infection Borderline personality disor thomas ([facility]) 03/07/2010 DX:Borderline personality di sorder ([facility]) Drug abuse 05/16/2010 DX:Drug abuse ([facility]) Irritable bowel syndrome with diarrhea 12/27/2015 DX:Irritable bowel syndrome with diarrhea Allergic rhinitis 03/29/2007 DX:Allergic rh initis Asthma 01/28/2006 DX:Asthma; COMME NT: never intubated BMI 45.0-49.9, adult ([facility]) 01/06/2017 D X:BMI 45.0-49.9, adult ([facility]) Chronic constipation 01/30/2013 DX:Chronic constipation Depression 03/17/2006 [...] Maintenance Results * Depression Screening (11/02/2023) Pathologist [facility] Depression Screening abstracted [facility] Provider HEALTH MAINTENANCE Final Result * Lipid panel (10/07/2022) [facility] [address] LDL/HDL Ratio 3 0 - 4 Triglycerides 50 0 - 150 mg/dL Cholesterol 150 0 - 200 mg/dL HDL 55 >=40 mg/dL LDL Cholesterol 85 0 - 100 mg/dL Blood Venous blood specimen / Unknown Historical Provider LAB BLOOD ORDERABLES Rose Marie l Result * HIV Screening (02/03/2021) Pathologist [facility] HIV Screening abstracted [facility] Provider HEALTH MAINTENANCE Final Result * Hepatitis C Screening (02/03/2021) Pathologist [facility] Hepatitis C Screening abstracted Historical Provider HEALTH MAINTENANCE Final Result * Cervical Cancer Screening: HPV (01/21/2021) Pathologist [facility] Cervical Cancer Screening: HPV positive, abstracted Historical Provider HEALTH MAINTENANCE Final Result from Last 3 Months or Most Recently Relevant to Health Maintenance Care Teams Livestock Laborer Relationship Specialty Start Date End Date Marcela Gaviria MD [address] [place] [id number] PCP - General Internal Medicine 12/24/20
[2024-11-19 21:00] LABS: Anion Gap 10 (12-20); Blood Urea Nitrogen 13 mg/dL (9-16); Carbon Dioxide 24 mmol/L (22-29); Chloride 108 mmol/L (96-108); Creatinine Clr Calc Pharmacy 106.9; Estimated Glomerular Filt Rate > 60; Glucose Random 91 mg/dL (60-115); Sodium 138 mmol/L (135-145)
--- NOTE | 2024-11-19 21:15 | MHC.EDTECH ---
pt refused vitals, calm comfrotable at this time. sitter present. changed, labs and urine obtained
[2024-11-19] MEDS: LORazepam 1 MG TABLET PO (21:23)
[2024-11-19 22:36] VITALS: BP 104/75; PULSE 81; RESP 16; TEMP 36.8; O2SAT 96
[2024-11-20 06:10] VITALS: RESP 16
[2024-11-20 09:57] VITALS: RESP 16
--- NOTE | 2024-11-20 10:01 | MHC.CARE ---
Patient evaluated by the CARE Team, she does not require an inpatient psychiatric admission at this time. ED provider Dr. Gonzales updated.
[2024-11-20 10:05] VITALS: BP 104/75; PULSE 81; RESP 16; TEMP 36.8
== END 2024-11-20 10:11 | disposition home or self-care (01) ==
PROVIDERS: Emergency Provider Internal Medicine; PCP Nurse Practitioner Family
DX: F33.3 Major depressive disorder, recurrent, severe with psychotic symptoms (principal); R45.851 Suicidal ideations; F43.12 Post-traumatic stress disorder, chronic; F60.3 Borderline personality disorder; F43.20 Adjustment disorder, unspecified; J44.9 Chronic obstructive pulmonary disease, unspecified; F17.210 Nicotine dependence, cigarettes, uncomplicated; F12.90 Cannabis use, unspecified, uncomplicated; Z91.51 Personal history of suicidal behavior; Z79.899 Other long term (current) drug therapy
CPT/HCPCS: 80048; 80307; 85025; 99284; 99285; S9485

== ENCOUNTER 2024-11-27 05:55 | Day surgery (SDC) | payer OTHER, SELFPAY ==
[2024-11-27] MEDS: Lactated Ringers 1,000 ML 100 ML IVCONT (06:57)
--- NOTE | 2024-11-27 07:04 | P.CONAN_ITS ---
[facility] Active Problems Active Problems: All Active Problems MDD (major depressive disorder), recurrent, severe, with psychosis (Acute) Osteoarthritis of right knee (Acute) Chronic post-traumatic stress disorder (PTSD) (Chronic) Borderline personality disorder (Chronic) Auditory hallucinations (Acute) Port-A-Cath in place (Acute) Intentional self-harm (Acute) COPD (chronic obstructive pulmonary disease) (Acute) Asthma (Acute) Adjustment disorder (Acute) Injury of ligament of right knee (Acute) Sprain of anterior cruciate ligament of right knee (Acute) Hernia (Chronic) Increased BMI (Acute) GERD (gastroesophageal reflux disease) (Acute) Past Medical History Medical History Depression Schizoaffective disorder, depressive type Depression with suicidal ideation MDD (major depressive disorder), recurrent, severe, with psychosis Port-A-Cath in place History of electroconvulsive therapy COVID-19 COVID-19 Sprain of left foot Chronic post-traumatic stress disorder (PTSD) COPD (chronic obstructive pulmonary disease) Increased BMI GERD (gastroesophageal reflux disease) Recurrent major depression-severe Acute post-traumatic stress disorder Injury, self-inflicted Suicidal ideation Self-harming behavior Intentional self-harm Suicidal ideation Borderline personality disorder Schizoaffective disorder Adjustment disorder Asthma Depression Anxiety PTSD (post-traumatic stress disorder) Family History Family History Mother Brain cancer Other No family history of cardiac disease Family history of problems with anesthesia: No Surgical History History of Problems with Anesthesia: No Social History Social History Household Members: Other Household Members Other:: group housemates Housing: Other Housing Other:: [facility] Do you presently have visiting nurse or other home services: No Unable to assess alcohol history related to: Unable to respond Alcohol intake: current Alcohol intake frequency: does not drink Patient Tobacco Use Status: Current someday Tobacco user Tobacco use type: Cigarette Cigarette Packs Per Day: 0.5 Cigarettes Per Day: 8 Years Smoked: 20 e-Cigarette/Vaping Use: Never Used Second Hand Smoke Exposure: No Substance Use Type: Marijuana Advance Directives: No Advance Directives Information Provided: Yes service: No Current occupation: rt handed Sexual orientation: Straight/Heterosexual Meds Allergies Allergy/AdvReac Type Severity Reaction Status Date / Time carbamazepine [From TEGRETOL] AdvReac Mild Nausea and Verified 11/19/24 20:20 Vomiting topiramate [From Topamax] AdvReac Mild Nausea and Verified 11/19/24 20:20 Vomiting Active Medications: Current Medications Lactated Ringer's (Lr) 1,000 mls @ 100 mls/hr IVCONT .Q10H SULEIMAN Last Admin: 11/27/24 06:57 Dose: 100 mls/hr Home Medications ?Medication ?Instructions ?Recorded ?Confirmed ?Last Taken ?Type benztropine 0.5 mg tablet 0.5 mg PO BID 04/30/24 11/06/24 10/05/24 History clonidine HCl 0.1 mg tablet 0.1 mg PO TID 04/30/24 11/06/24 10/05/24 History diphenhydramine HCl 50 mg capsule 100 mg PO BEDTIME insomnia 04/30/24 11/06/24 10/05/24 History (Banophen) omeprazole 20 mg capsule,delayed 20 mg PO Q OTHER DAY 04/30/24 11/06/24 10/05/24 History release prazosin 5 mg capsule 15 mg PO BEDTIME 04/30/24 11/06/24 10/05/24 History trazodone 100 mg tablet 200 mg PO BEDTIME insomnia 04/30/24 11/06/24 10/05/24 History multivitamin 1 tab PO DAILY 05/17/24 11/06/24 10/05/24 History zolpidem 10 mg tablet 10 mg PO BEDTIME insomnia 05/17/24 11/06/24 10/05/24 History cholecalciferol (vitamin D3) 25 25 mcg PO DAILY 07/29/24 11/06/24 10/05/24 History mcg (1,000 unit) tablet (Vitamin D3) haloperidol 5 mg tablet 5 mg PO TID 08/15/24 11/06/24 10/05/24 History haloperidol decanoate 100 mg/mL 75 mg IM Q28D 08/15/24 11/06/24 10/05/24 History intramuscular solution nicotine (polacrilex) 2 mg gum 2 mg PO Q2H PRN Cravings 08/15/24 11/06/24 10/05/24 History prazosin 1 mg capsule 1 mg PO BEDTIME 08/15/24 11/06/24 10/05/24 History calcium 600 mg (as 1 tab PO BID 11/02/24 11/06/24 Unknown History carbonate)-vitamin D3 10 mcg (400 unit) tablet fluticasone propionate 230 2 puff inhalation BID 11/02/24 11/06/24 Unknown History mcg-salmeterol 21 mcg/actuation HFA inhaler (Advair HFA) cetirizine 10 mg tablet 10 mg PO DAILY 11/06/24 11/06/24 Unknown History duloxetine 30 mg capsule,delayed 30 mg PO DAILY 11/06/24 11/06/24 Unknown History release Exam Airway Mallampati Class: III TM Dist: >3cm Neck ROM: Full Loose/Missing/Broken Teeth: Yes and Upper Heart: RRR Lungs: CTA Assessment and Plan Assessment Anesthesia Assessment: Anesthesia Plan Discussed and Chart Reviewed Final Anesthetic Review Family History of Problems with Anesthesia: No History of Problems with Anesthesia: No NPO: Yes ASA Class: III Final Preanesthetic Review: Meds/Allgs Chart Reviewed, Consent Obtained/Reviewed and Anes Risks/Benef Reviewed Patient Risk: Intermediate Procedure Risk: Intermediate Anesthetic Plan Anesthetic Plan: GA Disposition: Standard PACU
--- NOTE | 2024-11-27 07:26 | MHC.SHP ---
Pre-Procedural Eval Section A - 24 Hr Update-Section A only Date of Service: 11/27/24 The patient is an INPATIENT: No Changes since office visit: No Cold of Flu in the past 2 weeks Section B - Complete if H&P > 30 days Chief Complaint: depression Details of Present Illness: pt states she has been feeling somewhat unstable since of father Present Medications: see Short Stay Collaborative assessment Allergies: Allergies Allergy/AdvReac Type Severity Reaction Status Date / Time carbamazepine [From TEGRETOL] AdvReac Mild Nausea and Verified 11/19/24 20:20 Vomiting topiramate [From Topamax] AdvReac Mild Nausea and Verified 11/19/24 20:20 Vomiting Review of Systems Sugical H&P ROS: Negative: Constitution, Cardiovascular and Neurological and Yes, Specify: Respiratory (asthma intermittant sob ) and Psychiatric (mood dep occ aud helms) Exam Surgical H&P Exam: Normal: Heart, Normal: Lungs and Normal: Extremities Plan Diagnosis/Plan: Unchanged I have reviewed the history and physical and performed a pertinent physical examination on my patient. No changes have occurred unless specified. Time Spent With Patient Time: Total time managing care of this patient today ____ minutes.
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
[2024-11-27 07:45] VITALS: BP 135/74; PULSE 80; RESP 18; TEMP 36.9; O2SAT 96
[2024-11-27 07:50] VITALS: BP 111/73; PULSE 84; RESP 18; O2SAT 96
[2024-11-27 07:55] VITALS: BP 119/62; PULSE 83; RESP 18; O2SAT 98
[2024-11-27 08:00] VITALS: BP 112/69; PULSE 83; RESP 18; O2SAT 98
[2024-11-27 08:09] VITALS: BP 132/77; PULSE 84; RESP 18; TEMP 36.7; O2SAT 98
== END 2024-11-27 09:20 | disposition home or self-care (01) ==
PROVIDERS: PCP Nurse Practitioner Family; Visit Provider Psychiatry & Neurology Psychiatry
PROC: (CPT 90870; principal; 2024-11-27 07:00)
DX: F33.2 Major depressive disorder, recurrent severe without psychotic features (principal); F43.12 Post-traumatic stress disorder, chronic; Z63.4 Disappearance and death of family member; J44.9 Chronic obstructive pulmonary disease, unspecified; J45.20 Mild intermittent asthma, uncomplicated; K21.9 Gastro-esophageal reflux disease without esophagitis; R45.851 Suicidal ideations; Z79.51 Long term (current) use of inhaled steroids; Z79.899 Other long term (current) drug therapy; Z88.8 Allergy status to other drugs, medicaments and biological substances; F17.210 Nicotine dependence, cigarettes, uncomplicated
CPT/HCPCS: 90870; J0330; J1642; J2405; J2704

== ENCOUNTER → 2024-11-27 05:55 | Outpatient (BNV) | payer OTHER, SELFPAY | PROVIDERS: PCP Nurse Practitioner Family; Visit Provider Psychiatry & Neurology Psychiatry | DX: F33.3 Major depressive disorder, recurrent, severe with psychotic symptoms (principal) | CPT/HCPCS: 90870 ==

== ENCOUNTER 2024-12-03 19:26 | Emergency (ER) | payer OTHER, SELFPAY ==
[2024-12-03 19:31] VITALS: BP 127/71; BP 138/76; PULSE 84; PULSE 95; RESP 17; TEMP 36.8; O2SAT 98; BMI 38.4
--- NOTE | 2024-12-03 19:37 | ED.PSYCH ---
HPI - Psych General Chief Complaint: Psychiatric Symptoms Stated Complaint: si wants to speak with crisis Time Seen by Provider: 12/03/24 19:27 Source: patient, EMS and old records reviewed Mode of arrival: EMS Limitations: no limitations History of Present Illness ED Provider: GABRIEL KUMAR Narrative: 39 yo female with PMH of COPD, asthma, depression, borderline personality disorder, self harm, depression, PTSD, GERD here with c/o depression and SI has no injuries today. Denies any other medical complaints. She is asking for IM medications on arrival. Has no other medical complaints. No self harm at this time. Has stable housing. MD complaint: suicidal ideation and feels depressed Onset (ago): year(s) Duration: intermittent History of same: Yes Relieving factors: none Exacerbating factors: other Context: significant life stressor Associated psychiatric symptoms: depression and suicidal ideation Associated symptoms: denies other symptoms Treatments prior to arrival: none If self harm: admits thoughts of self harm and has plan Related Data Home Medications ?Medication ?Instructions ?Recorded ?Confirmed benztropine 0.5 mg tablet 0.5 mg PO BID 04/30/24 12/07/24 clonidine HCl 0.1 mg tablet 0.1 mg PO TID 04/30/24 12/07/24 omeprazole 20 mg capsule,delayed 20 mg PO Q OTHER DAY 04/30/24 12/07/24 release prazosin 5 mg capsule 15 mg PO BEDTIME 04/30/24 12/07/24 trazodone 100 mg tablet 200 mg PO BEDTIME insomnia 04/30/24 12/07/24 multivitamin 1 tab PO DAILY 05/17/24 12/07/24 zolpidem 10 mg tablet 10 mg PO BEDTIME insomnia 05/17/24 12/07/24 cholecalciferol (vitamin D3) 25 25 mcg PO DAILY 07/29/24 12/07/24 mcg (1,000 unit) tablet (Vitamin D3) haloperidol 5 mg tablet 5 mg PO TID 08/15/24 12/07/24 haloperidol decanoate 100 mg/mL 75 mg IM Q28D 08/15/24 12/03/24 intramuscular solution prazosin 1 mg capsule 1 mg PO BEDTIME 08/15/24 12/07/24 calcium 600 mg (as 1 tab PO BID 11/02/24 12/07/24 carbonate)-vitamin D3 10 mcg (400 unit) tablet fluticasone propionate 230 2 puff inhalation BID 11/02/24 12/07/24 mcg-salmeterol 21 mcg/actuation HFA inhaler (Advair HFA) cetirizine 10 mg tablet 10 mg PO DAILY 11/06/24 12/07/24 duloxetine 30 mg capsule,delayed 30 mg PO DAILY 11/06/24 12/07/24 release diphenhydramine HCl 50 mg capsule 100 mg PO BEDTIME insomnia 12/03/24 12/07/24 (Banophen) umeclidinium 62.5 mcg/actuation 1 inh inhalation DAILY 12/03/24 12/07/24 blister powder for inhalation (Incruse Ellipta) Previous Rx's ?Medication ?Instructions ?Recorded lorazepam 1 mg tablet 1 mg PO TID PRN anxiety/agitation 05/22/24 #0 tabs albuterol sulfate 90 mcg/actuation 2 puff inhalation Q4-6H PRN 08/30/24 aerosol inhaler shortness of breath or wheezing #6.7 grams duloxetine 60 mg capsule,delayed 60 mg PO DAILY 30 days #30 caps 10/03/24 release hydroxyzine HCl 50 mg tablet 50 mg PO Q6H PRN mild anxiety 30 10/03/24 days #90 tabs lithium carbonate 450 mg 900 mg (2 x 450 mg) PO BEDTIME 30 10/17/24 tablet,extended release days #60 tabs Allergies Allergy/AdvReac Type Severity Reaction Status Date / Time carbamazepine [From TEGRETOL] AdvReac Mild Nausea and Verified 12/06/24 20:42 Vomiting topiramate [From Topamax] AdvReac Mild Nausea and Verified 12/06/24 20:42 Vomiting Review of Systems Review of Systems: Constitutional : No Fever, No Chills ENT/Mouth : No Ear Pain, No Nasal Congestion, No sore throat Eyes: No Eye Pain, No Swelling, No Redness Cardiovascular : No Chest Pain, No SOB Respiratory : No Cough, No Sputum, No Dyspnea Gastrointestinal : No Nausea, No Vomiting, No Diarrhea, No Hematochezia, No Melena Genitourinary : No Dysuria, No Urinary Frequency, No Hematuria Musculoskeletal : No Myalgias Skin : No Skin Lesions, No rash Neuro : No Weakness, No Numbness, No Paresthesias, No Dizziness, No Headache Psych : positive Anxiety, positive Depression, positive SI no HI Heme/Lymph: No Lymphadenopathy Endocrine : No Polyuria, No Polydipsia All other systems reviewed and are negative [facility] Past Medical History Attestation statement: The following information was validated with the patient. Source: old records reviewed Medical History Depression Schizoaffective disorder, depressive type Depression with suicidal ideation MDD (major depressive disorder), recurrent, severe, with psychosis Port-A-Cath in place History of electroconvulsive therapy COVID-19 COVID-19 Sprain of left foot Chronic post-traumatic stress disorder (PTSD) COPD (chronic obstructive pulmonary disease) Increased BMI GERD (gastroesophageal reflux disease) Recurrent major depression-severe Acute post-traumatic stress disorder Injury, self-inflicted Suicidal ideation Self-harming behavior Intentional self-harm Suicidal ideation Borderline personality disorder Schizoaffective disorder Adjustment disorder Asthma Depression Anxiety PTSD (post-traumatic stress disorder) Family History Family History Mother Brain cancer Other No family history of cardiac disease Social History Social History Household Members: Other Household Members Other:: group housemates Housing: Other Housing Other:: [facility] senior living Do you presently have visiting nurse or other home services: No Unable to assess alcohol history related to: Unable to respond Alcohol intake: current Alcohol intake frequency: does not drink Patient Tobacco Use Status: Current someday Tobacco user Tobacco use type: Cigarette Cigarette Packs Per Day: 0.5 Cigarettes Per Day: 8 Years Smoked: 20 e-Cigarette/Vaping Use: Never Used Second Hand Smoke Exposure: No Substance Use Type: Marijuana Advance Directives: No Advance Directives Information Provided: No Do you have a plan to hurt others: No Plan service: No Current occupation: rt handed Sexual orientation: Straight/Heterosexual Physical Exam Vital Signs: Vital Signs: Last Vital Signs Temp 98.0 F 12/04/24 08:54 Pulse 76 12/04/24 08:54 Resp 16 12/04/24 08:54 BP 131/89 12/04/24 08:54 Pulse Ox 96 12/04/24 08:54 O2 Del Method Room Air 12/04/24 08:54 BMI result Body Mass Index 38.4 Appearance: Alert. Oriented X3. No acute distress. Eyes: Pupils equal, round and reactive to light. ENT: Pharynx normal. Neck: Normal inspection. Neck supple. CVS: Normal heart rate and rhythm. Pulses normal. Respiratory: No respiratory distress. Breath sounds normal. Abdomen: Soft and nontender. Skin: Skin warm and dry. Normal skin color. Normal skin turgor. Extremities: No lower extremity edema. No calf ttp Neuro: Oriented X 3. No motor deficit. No sensory deficit. CN2-12 intact Course Reevaluation(s) Reevaluation #1: 12/04/24 Dr Ramírez Remained stable overnight no new complain, seen by crisis today she was cleared for d/c Time: 08:41 Medications Administered Discontinued Medications Generic Name Dose Route Start Last Admin Trade Name Freq PRN Reason Stop Dose Admin Benztropine Mesylate 0.5 mg 12/03/24 21:30 12/04/24 08:27 Benztropine Mesylate 0.5 Mg Tablet PO 0.5 mg BID SULEIMAN Administration Calcium Carbonate/Cholecalciferol 500 mg 12/04/24 09:00 12/04/24 08:28 Calcium + Vitamin D 250 Mg Tablet PO 500 mg BID SULEIMAN Administration Clonidine HCl 0.1 mg 12/03/24 21:30 12/04/24 08:28 Clonidine Hcl 0.1 Mg Tablet PO 0.1 mg TID SULEIMAN Administration Protocol Diazepam 5 mg 12/03/24 19:28 12/03/24 19:49 Diazepam 10 Mg/2 Ml Cartridge IM 12/03/24 19:29 5 mg STAT STA Administration Diphenhydramine HCl 100 mg 12/03/24 21:30 12/03/24 21:45 Diphenhydramine Hcl 25 Mg Capsule PO 100 mg BEDTIME SULEIMAN Administration Duloxetine HCl 30 mg 12/04/24 09:00 12/04/24 08:35 Duloxetine Hcl 30 Mg Capsule. PO 30 mg DAILY SULEIMAN Administration Duloxetine HCl 60 mg 12/04/24 09:00 12/04/24 08:28 Duloxetine Hcl 60 Mg Capsule. PO 60 mg DAILY SULEIMAN Administration Fluticasone/Vilanterol 1 puff 12/04/24 08:00 12/04/24 08:27 Fluticasone/Vilanterol 200/25 Blst.W.Dev INHALE 1 puff RDAILY SULEIMAN Administration Haloperidol 5 mg 12/03/24 21:30 12/04/24 08:28 Haloperidol 5 Mg Tablet PO 5 mg TID SULEIMAN Administration Haloperidol Decanoate 75 mg 12/31/24 09:00 12/03/24 21:46 Haloperidol Decanoate 50 Mg/Ml Vial IM Not Given Q28D SULEIMAN Haloperidol Lactate 5 mg 12/03/24 19:28 12/03/24 19:49 Haloperidol Lactate 5 Mg/Ml Vial IM 12/03/24 19:29 5 mg STAT STA Administration [place] Carbonate 900 mg 12/03/24 21:30 12/03/24 21:44 [place] Carbonate Er 450 Mg Tablet.Er PO 900 mg BEDTIME SULEIMAN Administration Loratadine 10 mg 12/04/24 09:00 12/04/24 08:27 Loratadine 10 Mg Tablet PO 10 mg DAILY SULEIMAN Administration Lorazepam 2 mg 12/03/24 20:35 12/03/24 20:38 Lorazepam 1 Mg Tablet PO 12/03/24 20:36 2 mg ONCE ONE Administration Multivitamins/Vitamin C 1 tab 12/04/24 09:00 12/04/24 08:35 Multivitamin Tablet PO 1 tab DAILY SULEIMAN Administration Prazosin HCl 1 mg 12/03/24 21:30 12/03/24 21:45 Prazosin Hcl 1 Mg Capsule PO 1 mg BEDTIME SULEIMAN Administration Protocol Prazosin HCl 15 mg 12/03/24 21:30 12/03/24 22:00 Prazosin Hcl 5 Mg Capsule PO 15 mg BEDTIME SULEIMAN Administration Protocol Tiotropium [place] 2 puff 12/04/24 08:00 12/04/24 08:27 Tiotropium [place] 2.5 Mcg 1 Puff/2.5 Mcg Mist.Inhal INHALE 2 puff RDAILY SULEIMAN Administration Trazodone HCl 200 mg 12/03/24 21:30 12/03/24 21:46 Trazodone Hcl 100 Mg Tablet PO 200 mg BEDTIME SULEIMAN Administration Vitamin D 25 mcg 12/04/24 09:00 12/04/24 08:28 Cholecalciferol (Vitamin D3) 25 Mcg Tablet PO 25 mcg DAILY SULEIMAN Administration Zolpidem Tartrate 10 mg 12/03/24 21:30 12/03/24 21:44 Zolpidem Tartrate 5 Mg Tablet PO 10 mg BEDTIME SULEIMAN Administration Medical Decision Making Medical Decision Making MDM Narrative: 39 yo female with PMH of COPD, asthma, depression, borderline personality disorder, self harm, depression, PTSD, GERD here with c/o SI and depression hx of same in past at this time she reports life stressors. She has no medical complaints will obtain labs, refer to CARE team. IM medications at her request. Hx of similar presentations in past. Differential Diagnosis Differential Diagnoses: The differential diagnosis associated with the presentation includes depression, SI Admission/Observation Consideration of admission/observation: Escalation of care including admission/observation considered physician observation started at 740pm pending CARE team Consult Healthcare Provider Management of the patient was discussed with: Behavioral Health Provider Lab Data [facility] Lab Attestation statement: I reviewed the patient's lab results. 12/03/24 20:12 12/03/24 20:12 Labs: Lab Results 12/03/24 12/03/24 Range/Units 20:12 20:14 WBC 7.9 (4.8-10.8) X10*3/uL RBC 4.01 L (4.20-5.50) X10*6/uL Hgb 11.7 L (12.0-16.0) g/dl Hct 36.5 L (37.0-47.0) % MCV 91.0 (80.0-98.0) fL MCH 29.2 (27.0-33.0) pg MCHC 32.1 (31.0-35.0) g/dl RDW 13.8 (11.0-16.0) % Plt Count 229 (160-400) X10*3/uL MPV 10.9 (9.4-12.3) fL Immature Gran % (Auto) 0.3 (0.0-0.4) % Neut % (Auto) 69.5 (45-73) % Lymph % (Auto) 22.1 (20-40) % [place] % (Auto) 6.8 (2-11) % Eos % (Auto) 0.9 (0-4) % Baso % (Auto) 0.4 (0-2) % Lymph # (Auto) 1.7 (1.2-4.9) X10*3/uL [place] # (Auto) 0.5 (0.1-1.2) X10*3/uL Eos # (Auto) 0.1 (0.0-0.4) X10*3/uL Baso # (Auto) 0.0 (0.0-0.2) X10*3/uL Abs Immat Gran (auto) 0.02 (0.00-0.03) X10*3/uL Absolute Neuts (auto) 5.5 (2.0-8.3) x10*3/uL Absolute Nucleated RBC 0.000 (0.0-0.012) X10*3/uL Nucleated RBC % (auto) 0.0 (0.0-0.2) /100WBC Sodium 135 (135-145) mmol/L Potassium 3.9 (3.3-5.1) mmol/L Chloride 108 (96-108) mmol/L Carbon Dioxide 20 L (22-29) mmol/L Anion Gap 11 L (12-20) BUN 7 L (9-16) mg/dL Creatinine 0.69 (0.5-1.4) mg/dL Estim Creat Clear Calc 105.3 Estimated GFR > 60 Random Glucose 93 (60-115) mg/dL Calcium 9.0 (8.4-10.2) mg/dL Magnesium 1.9 (1.6-2.6) mg/dL Total Bilirubin 0.1 (0.0-1.0) mg/dL Direct Bilirubin < 0.2 (0.0-0.5) mg/dL AST 21 (5-31) U/L ALT 12 (0-31) U/L Alkaline Phosphatase 51 (39-117) U/L Total Protein 6.7 (6.5-8.0) g/dL Albumin 4.0 (3.5-5.0) g/dL Urine Color Yellow Urine Appearance Clear Urine pH 6.5 (5.0-9.0) Ur Specific [place] <= 1.005 (1.005-1.025) Urine Protein Negative (Neg-Trace) mg/dL Urine Glucose (UA) Negative (Negative) mg/dL Urine Ketones Negative (Negative) mg/dL Urine Blood Negative (Negative) Urine Nitrite Negative (Negative) Ur Leukocyte Esterase Negative (Negative) Urine Opiates Screen Not Detected (Not Detect) Ur Buprenorphine Scrn Not Detected (Not Detect) ng/mL Ur Oxycodone Screen Not Detected (Not Detect) ng/mL Urine Methadone Screen Not Detected (Not Detect) ng/mL Urine Fentanyl Screen Not Detected (Not Detect) Ur Barbiturates Screen Not Detected (Not Detect) Ur Phencyclidine Scrn Not Detected (Not Detect) Ur Amphetamines Screen Not Detected (Not Detect) U Benzodiazepines Scrn Not Detected (Not Detect) [place] 0.47 L (0.60-1.20) mmol/L Urine Cocaine Screen Not Detected (Not Detect) U Marijuana (THC) Screen POSITIVE H (Not Detect) Ethyl Alcohol < 10 mg/dL Independent Historian Clinical information obtained from an independent historian. History obtained from or confirmed by: EMS External Record Review External record reviewed: Inpatient record and Outpatient record Discharge Plan Discharge Clinical Impression: Chronic post-traumatic stress disorder (PTSD) Patient Disposition: Home, Self-Care Instructions: Post Traumatic Stress Disorder (ED) Additional Instructions: You were seen in our Emergency Department today for treatment of a behavioral health issue. It is important after your visit that you follow up with either your behavioral health provider or a primary care doctor within 7 days.? If you have trouble finding a therapist you can reach out to [place] [phone] The National Suicide and Crisis Lifeline can be reached 7 days a week 24 hours a day.? Call [phone] to speak with someone.? Return for any worsening symptoms or concerns such as thoughts of self harm or harm to others. Please call 911 if you feel your mental health is worsening.? Prescriptions: No Action clonidine HCl 0.1 mg tablet 0.1 mg PO TID Rx Instructions: takes at 0800, 1400 and 2000 benztropine 0.5 mg tablet 0.5 mg PO BID prazosin 5 mg capsule 15 mg PO BEDTIME trazodone 100 mg tablet 200 mg PO BEDTIME omeprazole 20 mg capsule,delayed release(DR/EC) 20 mg PO Q OTHER DAY cholecalciferol (vitamin D3) [Vitamin D3] 25 mcg (1,000 unit) tablet 25 mcg PO DAILY haloperidol 5 mg tablet 5 mg PO TID prazosin 1 mg capsule 1 mg PO BEDTIME haloperidol decanoate 100 mg/mL solution 75 mg IM Q28D albuterol sulfate 90 mcg/actuation HFA aerosol inhaler 2 puff inhalation Q4-6H PRN (Reason: shortness of breath or wheezing) Qty: 6.7 0RF hydroxyzine HCl 50 mg Tablet 50 mg PO Q6H PRN (Reason: mild anxiety) 30 Days Qty: 90 0RF duloxetine 60 mg capsule,delayed release(DR/EC) 60 mg PO DAILY 30 Days Qty: 30 0RF Rx Instructions: take with 30mg capsule diphenhydramine HCl [Banophen] 50 mg capsule 100 mg PO BEDTIME Incruse Ellipta 62.5 mcg/actuation blister with device 1 inh INHALATION DAILY zolpidem 10 mg tablet 10 mg PO BEDTIME multivitamin Tablet 1 tab PO DAILY lorazepam 1 mg Tablet 1 mg PO TID PRN (Reason: anxiety/agitation) Qty: 0 0RF lithium carbonate 450 mg Tablet Extended Release 900 mg PO BEDTIME 30 Days Qty: 60 0RF fluticasone propion-salmeterol [Advair HFA] 230-21 mcg/actuation HFA aerosol inhaler 2 puff INHALATION BID calcium carbonate-vitamin D3 600 mg-10 mcg (400 unit) tablet 1 tab PO BID cetirizine 10 mg tablet 10 mg PO DAILY duloxetine 30 mg capsule,delayed release(DR/EC) 30 mg PO DAILY Referrals: aHfsa Holcomb NP [Primary Care Provider] - 2 days Interventions: [place]-Suicide Risk Severity Scale Last Done: 12/03/24 19:40 ED Discharge Assessment Last Done: 12/04/24 08:54 Discharge Date/Time: 12/04/24 08:56 Print Language: Finnish
[2024-12-03] MEDS: diazePAM 10 MG/2 ML CARTRIDGE 5 MG IM (19:49)
[2024-12-03] MEDS: Haloperidol Lactate 5 MG/ML VIAL IM (19:49)
--- NOTE | 2024-12-03 19:52 | PC.NURSE ---
pt banging head on the wall. pt medicated per OCT.
[2024-12-03 20:20] LABS: MANUAL DIFF FLAG NO
[2024-12-03 20:23] LABS: Basophils Percent Auto 0.4 % (0-2); Eosinophils Absolute Auto 0.1 X10*3/uL (0.0-0.4); Eosinophils Percent Auto 0.9 % (0-4); Hematocrit 36.5 % (37.0-47.0); Hemoglobin 11.7 g/dl (12.0-16.0); Imm Gran Abs Auto 0.02 X10*3/uL (0.00-0.03); Imm Gran Pct Auto 0.3 % (0.0-0.4); Lymphocytes Absolute Auto 1.7 X10*3/uL (1.2-4.9); Lymphocytes Percent Auto 22.1 % (20-40); Mean Corpuscular HGB Conc 32.1 g/dl (31.0-35.0); Mean Corpuscular Hemoglobin 29.2 pg (27.0-33.0); Mean Platelet Volume 10.9 fL (9.4-12.3); Monocytes Absolute Auto 0.5 X10*3/uL (0.1-1.2); Monocytes Percent Auto 6.8 % (2-11); Neutrophils Absolute Auto 5.5 x10*3/uL (2.0-8.3); Neutrophils Percent Auto 69.5 % (45-73); Platelet Count 229 X10*3/uL (160-400); Red Blood Count 4.01 X10*6/uL (4.20-5.50); Red Cell Distribution Width 13.8 % (11.0-16.0); White Blood Count 7.9 X10*3/uL (4.8-10.8)
--- NOTE | 2024-12-03 20:27 | PC.NURSE ---
pt continues to hit herself. med rec completed with pt. pt restless, want to harm herself. aware
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
[2024-12-03 20:33] LABS: Lithium 0.47 mmol/L (0.60-1.20)
[2024-12-03 20:33] LABS: Amphetamine Screen Urine Not Detected (Not Detect); Barbiturates, Urine Not Detected (Not Detect); Benzodiazepines Screen Urine Not Detected (Not Detect); Buprenorphine Scr Not Detected (Not Detect); Cannabinoid Screen Urine POSITIVE (Not Detect); Cocaine Screen Urine Not Detected (Not Detect); Fentanyl, urine Not Detected (Not Detect); Methadone Screen, Urine Not Detected (Not Detect); Opiate Screen Urine Not Detected (Not Detect); Oxycodone Screen Urine Not Detected (Not Detect); Phencyclidine Screen Urine Not Detected (Not Detect)
[2024-12-03] MEDS: LORazepam 1 MG TABLET 2 MG PO (20:38)
--- NOTE | 2024-12-03 20:40 | PC.NURSE ---
pt medicated per MAR, pt tearing a hole in her socks. when asked why pt states she was going to tie it around her neck. socks removed. pt sitting in common area at this time
[2024-12-03 20:58] LABS: Alanine Aminotransferase 12 U/L (0-31); Alkaline Phosphatase 51 U/L (39-117); Anion Gap 11 (12-20); Aspartate Amino Transferase 21 U/L (5-31); Bilirubin Direct < 0.2 mg/dL (0.0-0.5); Bilirubin Total 0.1 mg/dL (0.0-1.0); Blood Urea Nitrogen 7 mg/dL (9-16); Carbon Dioxide 20 mmol/L (22-29); Chloride 108 mmol/L (96-108); Creatinine Clr Calc Pharmacy 105.3; Estimated Glomerular Filt Rate > 60; Ethanol < 10 mg/dL; Glucose Random 93 mg/dL (60-115); Magnesium 1.9 mg/dL (1.6-2.6); Potassium 3.9 mmol/L (3.3-5.1); Sodium 135 mmol/L (135-145); Total Protein 6.7 g/dL (6.5-8.0)
[2024-12-03] MEDS: Lithium Carbonate ER 450 MG TABLET.ER 900 MG PO (21:44)
[2024-12-03] MEDS: Zolpidem Tartrate 5 MG TABLET 10 MG PO (21:44)
[2024-12-03] MEDS: diphenhydrAMINE HCL 25 MG CAPSULE 100 MG PO (21:45)
[2024-12-03] MEDS: Prazosin HCL 1 MG CAPSULE PO (21:45)
[2024-12-03] MEDS: Benztropine Mesylate 0.5 MG TABLET PO (21:45)
[2024-12-03] MEDS: cloNIDine HCL 0.1 MG TABLET PO (21:45)
[2024-12-03] MEDS: traZODone HCL 100 MG TABLET 200 MG PO (21:46)
[2024-12-03] MEDS: HaloperidoL 5 MG TABLET PO (21:46)
[2024-12-03 21:52] VITALS: BP 119/70; PULSE 78; RESP 16; TEMP 36.7; O2SAT 98
[2024-12-03] MEDS: Prazosin HCL 5 MG CAPSULE 15 MG PO (22:00)
--- NOTE | 2024-12-04 06:34 | PC.NURSE ---
pt resting comfortably throughout the night, no apparent distress noted at this time
--- NOTE | 2024-12-04 07:11 | PC.NURSE ---
Assumed care of patient at 0645, patient appears to be in no apparent distress at this time, respirations even and unlabored, sleeping. Continue plan of care for CARE team ar
[2024-12-04 07:25] LABS: Appearance Urine Clear; Color Urine Yellow; Glucose Urine UA Negative (Negative); Leukocyte Esterase Urine Negative (Negative); Nitrite Urine Negative (Negative); PH 6.5 (5.0-9.0); Specific Gravity - Urine <= 1.005 (1.005-1.025); Urine Blood Negative (Negative); Urine Ketones Negative (Negative); Urine Protein Negative (Neg-Trace)
[2024-12-04] MEDS: Fluticasone/Vilanterol 200/25 BLST.W.DEV 1 PUFF INHALE (08:27)
[2024-12-04] MEDS: Benztropine Mesylate 0.5 MG TABLET PO (08:27)
[2024-12-04] MEDS: Loratadine 10 MG TABLET PO (08:27)
[2024-12-04] MEDS: Tiotropium Bromide 2.5 mcg 1 PUFF/2.5 MCG MIST.INHAL 2 PUFF INHALE (08:27)
[2024-12-04] MEDS: Cholecalciferol (Vitamin D3) 25 MCG TABLET PO (08:28)
[2024-12-04] MEDS: HaloperidoL 5 MG TABLET PO (08:28)
[2024-12-04] MEDS: cloNIDine HCL 0.1 MG TABLET PO (08:28)
[2024-12-04] MEDS: DULoxetine HCl 60 MG CAPSULE.DR PO (08:28)
[2024-12-04] MEDS: Calcium + Vitamin D 250 MG TABLET 500 MG PO (08:28)
[2024-12-04] MEDS: Multivitamin TABLET 1 TAB PO (08:35)
[2024-12-04] MEDS: DULoxetine HCl 30 MG CAPSULE.DR PO (08:35)
[2024-12-04 08:54] VITALS: BP 131/89; PULSE 76; RESP 16; TEMP 36.7; O2SAT 96
== END 2024-12-04 08:56 | disposition home or self-care (01) ==
PROVIDERS: Emergency Provider Emergency Medicine; PCP Nurse Practitioner Family
DX: F43.12 Post-traumatic stress disorder, chronic (principal); R45.851 Suicidal ideations; F32.A Depression, unspecified
CPT/HCPCS: 36415; 80048; 80076; 80178; 80307; 81003; 83735; 85025; 96372; 99285; J1630; J3360; S9485

== ENCOUNTER 2024-12-06 20:11 | Emergency (ER) | payer OTHER, SELFPAY ==
--- NOTE | 2024-12-06 20:32 | PC.NURSE ---
patient reportedly exp CAH to hurt self, cooperative on arrival although declined VS in ambulance cooperative here, follows all commands, requested snacks on arrival.
[2024-12-06 20:35] VITALS: BP 000/00; BP 104/67; PULSE 91; RESP 16; TEMP 37.1; O2SAT 97; BMI 35.2
[2024-12-06 22:38] LABS: Appearance Urine Clear; Color Urine Yellow; Glucose Urine UA Negative (Negative); Leukocyte Esterase Urine Negative (Negative); Nitrite Urine Negative (Negative); Specific Gravity - Urine <= 1.005 (1.005-1.025); Urine Blood Negative (Negative); Urine Ketones Negative (Negative); Urine Protein Negative (Neg-Trace)
[2024-12-06 22:40] LABS: UPreg QC Valid YES; Urine Pregnancy NEGATIVE (NEGATIVE)
[2024-12-06 22:47] LABS: Amphetamine Screen Urine Not Detected (Not Detect); Barbiturates, Urine Not Detected (Not Detect); Benzodiazepines Screen Urine Not Detected (Not Detect); Buprenorphine Scr Not Detected (Not Detect); Cannabinoid Screen Urine POSITIVE (Not Detect); Cocaine Screen Urine Not Detected (Not Detect); Fentanyl, urine Not Detected (Not Detect); Methadone Screen, Urine Not Detected (Not Detect); Opiate Screen Urine Not Detected (Not Detect); Oxycodone Screen Urine Not Detected (Not Detect); Phencyclidine Screen Urine Not Detected (Not Detect)
--- NOTE | 2024-12-06 23:20 | ED_ITS ---
HPI - Psych General Chief Complaint: Psychiatric Symptoms Stated Complaint: depression, hallucinations Time Seen by Provider: 12/06/24 21:23 History of Present Illness HPI Narrative: Patient is a 39-year-old female has a history of depression, borderline personality auditory hallucination presented today with having thoughts of hurting herself by cutting. Patient never actually did anything. Related Data Home Medications ?Medication ?Instructions ?Recorded ?Confirmed benztropine 0.5 mg tablet 0.5 mg PO BID 04/30/24 12/07/24 clonidine HCl 0.1 mg tablet 0.1 mg PO TID 04/30/24 12/07/24 omeprazole 20 mg capsule,delayed 20 mg PO Q OTHER DAY 04/30/24 12/07/24 release prazosin 5 mg capsule 15 mg PO BEDTIME 04/30/24 12/07/24 trazodone 100 mg tablet 200 mg PO BEDTIME insomnia 04/30/24 12/07/24 multivitamin 1 tab PO DAILY 05/17/24 12/07/24 zolpidem 10 mg tablet 10 mg PO BEDTIME insomnia 05/17/24 12/07/24 cholecalciferol (vitamin D3) 25 25 mcg PO DAILY 07/29/24 12/07/24 mcg (1,000 unit) tablet (Vitamin D3) haloperidol 5 mg tablet 5 mg PO TID 08/15/24 12/07/24 haloperidol decanoate 100 mg/mL 75 mg IM Q28D 08/15/24 12/03/24 intramuscular solution prazosin 1 mg capsule 1 mg PO BEDTIME 08/15/24 12/07/24 calcium 600 mg (as 1 tab PO BID 11/02/24 12/07/24 carbonate)-vitamin D3 10 mcg (400 unit) tablet fluticasone propionate 230 2 puff inhalation BID 11/02/24 12/07/24 mcg-salmeterol 21 mcg/actuation HFA inhaler (Advair HFA) cetirizine 10 mg tablet 10 mg PO DAILY 11/06/24 12/07/24 duloxetine 30 mg capsule,delayed 30 mg PO DAILY 11/06/24 12/07/24 release diphenhydramine HCl 50 mg capsule 100 mg PO BEDTIME insomnia 12/03/24 12/07/24 (Banophen) umeclidinium 62.5 mcg/actuation 1 inh inhalation DAILY 12/03/24 12/07/24 blister powder for inhalation (Incruse Ellipta) Previous Rx's ?Medication ?Instructions ?Recorded lorazepam 1 mg tablet 1 mg PO TID PRN anxiety/agitation 05/22/24 #0 tabs albuterol sulfate 90 mcg/actuation 2 puff inhalation Q4-6H PRN 08/30/24 aerosol inhaler shortness of breath or wheezing #6.7 grams duloxetine 60 mg capsule,delayed 60 mg PO DAILY 30 days #30 caps 10/03/24 release hydroxyzine HCl 50 mg tablet 50 mg PO Q6H PRN mild anxiety 30 10/03/24 days #90 tabs lithium carbonate 450 mg 900 mg (2 x 450 mg) PO BEDTIME 10/17/24 tablet,extended release days #60 tabs Allergies Allergy/AdvReac Type Severity Reaction Status Date / Time carbamazepine [From TEGRETOL] AdvReac Mild Nausea and Verified 12/06/24 20:42 Vomiting topiramate [From Topamax] AdvReac Mild Nausea and Verified 12/06/24 20:42 Vomiting Review of Systems 2 Review of Systems: No fever no chills no chest pain or shortness of breath Yes all other systems are reviewed and are negative PMFSH Past Medical History Attestation statement: The following information was validated with the patient. Medical History Depression Schizoaffective disorder, depressive type Depression with suicidal ideation MDD (major depressive disorder), recurrent, severe, with psychosis Port-A-Cath in place History of electroconvulsive therapy COVID-19 COVID-19 Sprain of left foot Chronic post-traumatic stress disorder (PTSD) COPD (chronic obstructive pulmonary disease) Increased BMI GERD (gastroesophageal reflux disease) Recurrent major depression-severe Acute post-traumatic stress disorder Injury, self-inflicted Suicidal ideation Self-harming behavior Intentional self-harm Suicidal ideation Borderline personality disorder Schizoaffective disorder Adjustment disorder Asthma Depression Anxiety PTSD (post-traumatic stress disorder) Family History Family History Mother Brain cancer Other No family history of cardiac disease Social History Social History Household Members: Other Household Members Other:: group housemates Housing: Other Housing Other:: [facility] senior care Do you presently have visiting nurse or other home services: No Unable to assess alcohol history related to: Unable to respond Alcohol intake: current Alcohol intake frequency: does not drink Patient Tobacco Use Status: Current someday Tobacco user Tobacco use type: Cigarette Cigarette Packs Per Day: 0.5 Cigarettes Per Day: 8 Years Smoked: 20 e-Cigarette/Vaping Use: Never Used Second Hand Smoke Exposure: No Substance Use Type: Marijuana Advance Directives: No Advance Directives Information Provided: No Do you have a plan to hurt others: No Plan service: No Current occupation: rt handed Sexual orientation: Straight/Heterosexual Physical Exam 2 Vital Signs: Vital Signs: Last Vital Signs Temp 99.3 F 12/07/24 06:11 Pulse 73 12/07/24 06:11 Resp 19 12/07/24 06:11 BP 99/71 12/07/24 06:11 Pulse Ox 97 12/07/24 06:11 O2 Del Method Room Air 12/07/24 06:11 BMI result Body Mass Index 35.2 Appearance: Alert. Oriented X3. No acute distress. Eyes: Pupils equal, round and reactive to light. ENT: Pharynx normal. Neck: Normal inspection. Neck supple. No lymph nodes noted. No crepitus CVS: Normal heart rate and rhythm. Pulses normal. Normal S1 and S2 Respiratory: No respiratory distress. Breath sounds normal. No Wheezing. No rales Abdomen: Soft and nontender. No rigidity. No distention. good BS x4 Skin: Skin warm and dry. Normal skin color. Normal skin turgor. Extremities: No lower extremity edema. Neurovascular intact to all extremities. No Lacerations. No Rash Neuro: Oriented X 3. No motor deficit. No sensory deficit. Moving all extermities. No slurred speech. Cranial nerves grossly intact Course Reevaluation(s) Reevaluation #1: Time: 08:53 Date: 12/07/24 Provider: Shoaib Lyman MD Physician observation ended at 08:53 AM today.. Patient has been cleared for discharge by the CARE team. Will follow up as an outpatient. The patient seems comfortable being discharged.. Time: 08:54 Medical Decision Making Medical Decision Making MDM Narrative: Long history of hallucination, depression. Patient to be evaluated by crisis team. Currently medically cleared Differential Diagnosis Differential Diagnoses: The differential diagnosis associated with the presentation includes Depression anxiety Admission/Observation Consideration of admission/observation: Escalation of care including admission/observation considered Consult Healthcare Provider Management of the patient was discussed with: Improvement Leader (Care team) Lab Data 12/07/24 05:33 12/07/24 05:33 Labs: Lab Results 12/06/24 12/06/24 12/07/24 Range/Units 22:29 22:30 05:33 WBC 6.1 (4.8-10.8) X10*3/uL RBC 3.88 L (4.20-5.50) X10*6/uL Hgb 11.5 L (12.0-16.0) g/dl Hct 35.3 L (37.0-47.0) % MCV 91.0 (80.0-98.0) fL MCH 29.6 (27.0-33.0) pg MCHC 32.6 (31.0-35.0) g/dl RDW 14.1 (11.0-16.0) % Plt Count 252 (160-400) X10*3/uL MPV 11.0 (9.4-12.3) fL Immature Gran % (Auto) 0.3 (0.0-0.4) % Neut % (Auto) 62.5 (45-73) % Lymph % (Auto) 28.5 (20-40) % [place] % (Auto) 6.4 (2-11) % Eos % (Auto) 1.8 (0-4) % Baso % (Auto) 0.5 (0-2) % Lymph # (Auto) 1.7 (1.2-4.9) X10*3/uL [place] # (Auto) 0.4 (0.1-1.2) X10*3/uL Eos # (Auto) 0.1 (0.0-0.4) X10*3/uL Baso # (Auto) 0.0 (0.0-0.2) X10*3/uL Abs Immat Gran (auto) 0.02 (0.00-0.03) X10*3/uL Absolute Neuts (auto) 3.8 (2.0-8.3) x10*3/uL Absolute Nucleated RBC 0.000 (0.0-0.012) X10*3/uL Nucleated RBC % (auto) 0.0 (0.0-0.2) /100WBC Sodium 138 (135-145) mmol/L Potassium 3.9 (3.3-5.1) mmol/L Chloride 109 H (96-108) mmol/L Carbon Dioxide 22 (22-29) mmol/L Anion Gap 11 L (12-20) BUN 13 (9-16) mg/dL Creatinine 0.73 (0.5-1.4) mg/dL Estim Creat Clear Calc 115.4 Estimated GFR > 60 Random Glucose 113 (60-115) mg/dL Calcium 9.2 (8.4-10.2) mg/dL Total Bilirubin 0.1 (0.0-1.0) mg/dL AST 12 (5-31) U/L ALT 10 (0-31) U/L Alkaline Phosphatase 49 (39-117) U/L Total Protein 6.2 L (6.5-8.0) g/dL Albumin 3.6 (3.5-5.0) g/dL Urine Color Yellow Urine Appearance Clear Urine pH 8.0 (5.0-9.0) Ur Specific [place] <= 1.005 (1.005-1.025) Urine Protein Negative (Neg-Trace) mg/dL Urine Glucose (UA) Negative (Negative) mg/dL Urine Ketones Negative (Negative) mg/dL Urine Blood Negative (Negative) Urine Nitrite Negative (Negative) Ur Leukocyte Esterase Negative (Negative) Urine Test NEGATIVE (NEGATIVE) Salicylates < 5.0 L (15-30) mg/dL Urine Opiates Screen Not Detected (Not Detect) Ur Buprenorphine Scrn Not Detected (Not Detect) ng/mL Ur Oxycodone Screen Not Detected (Not Detect) ng/mL Urine Methadone Screen Not Detected (Not Detect) ng/mL Urine Fentanyl Screen Not Detected (Not Detect) Acetaminophen < 3 (<30) mcg/mL Ur Barbiturates Screen Not Detected (Not Detect) Ur Phencyclidine Scrn Not Detected (Not Detect) Ur Amphetamines Screen Not Detected (Not Detect) U Benzodiazepines Scrn Not Detected (Not Detect) [place] 1.05 (0.60-1.20) mmol/L Urine Cocaine Screen Not Detected (Not Detect) U Marijuana (THC) Screen POSITIVE H (Not Detect) Ethyl Alcohol < 10 mg/dL Social Determinants Patient?s care significantly limited by Social Determinants of Health including: Low income and Problems related to primary support group Discharge Plan Discharge Clinical Impression: Hallucination Patient Disposition: Home, Self-Care Additional Instructions: Please continue your regular medications. Please follow up with N as scheduled later today. Also follow up with your regular primary care provider. Return to the emergency room if worse. Prescriptions: No Action clonidine HCl 0.1 mg tablet 0.1 mg PO TID Rx Instructions: takes at 0800, 1400 and 2000 benztropine 0.5 mg tablet 0.5 mg PO BID prazosin 5 mg capsule 15 mg PO BEDTIME trazodone 100 mg tablet 200 mg PO BEDTIME omeprazole 20 mg capsule,delayed release(DR/EC) 20 mg PO Q OTHER DAY cholecalciferol (vitamin D3) [Vitamin D3] 25 mcg (1,000 unit) tablet 25 mcg PO DAILY haloperidol 5 mg tablet 5 mg PO TID prazosin 1 mg capsule 1 mg PO BEDTIME haloperidol decanoate 100 mg/mL solution 75 mg IM Q28D albuterol sulfate 90 mcg/actuation HFA aerosol inhaler 2 puff inhalation Q4-6H PRN (Reason: shortness of breath or wheezing) Qty: 6.7 0RF hydroxyzine HCl 50 mg Tablet 50 mg PO Q6H PRN (Reason: mild anxiety) 30 Days Qty: 90 0RF duloxetine 60 mg capsule,delayed release(DR/EC) 60 mg PO DAILY 30 Days Qty: 30 0RF Rx Instructions: take with 30mg capsule diphenhydramine HCl [Banophen] 50 mg capsule 100 mg PO BEDTIME Incruse Ellipta 62.5 mcg/actuation blister with device 1 inh INHALATION DAILY zolpidem 10 mg tablet 10 mg PO BEDTIME multivitamin Tablet 1 tab PO DAILY lorazepam 1 mg Tablet 1 mg PO TID PRN (Reason: anxiety/agitation) Qty: 0 0RF lithium carbonate 450 mg Tablet Extended Release 900 mg PO BEDTIME 30 Days Qty: 60 0RF fluticasone propion-salmeterol [Advair HFA] 230-21 mcg/actuation HFA aerosol inhaler 2 puff INHALATION BID calcium carbonate-vitamin D3 600 mg-10 mcg (400 unit) tablet 1 tab PO BID cetirizine 10 mg tablet 10 mg PO DAILY duloxetine 30 mg capsule,delayed release(DR/EC) 30 mg PO DAILY Referrals: Hafsa Holcomb NP [Nurse Practitioner] - [facility] [Provider Group] Interventions: [place]-Suicide Risk Severity Scale Last Done: 12/07/24 04:33 Print Language: Mosotho
--- NOTE | 2024-12-06 23:30 | MHC.EDTECH ---
this tech assumed care of pt @[id number]
--- NOTE | 2024-12-06 23:46 | MHC.CARE ---
Per pt's [facility] care plan, pt will remain in the ED and be re evaluated in AM with the goal to potentially divert back to the community if able to form a safe discharge plan at that time. She will remain in the ED pending a re evaluation and further follow up will occur on next shift. A copy of pt's care plan will be placed in the chart at this time. and RN in pod will be notified.
[2024-12-07 05:39] LABS: MANUAL DIFF FLAG NO
[2024-12-07 05:42] LABS: Basophils Percent Auto 0.5 % (0-2); Eosinophils Absolute Auto 0.1 X10*3/uL (0.0-0.4); Eosinophils Percent Auto 1.8 % (0-4); Hematocrit 35.3 % (37.0-47.0); Hemoglobin 11.5 g/dl (12.0-16.0); Imm Gran Abs Auto 0.02 X10*3/uL (0.00-0.03); Imm Gran Pct Auto 0.3 % (0.0-0.4); Lymphocytes Absolute Auto 1.7 X10*3/uL (1.2-4.9); Lymphocytes Percent Auto 28.5 % (20-40); Mean Corpuscular HGB Conc 32.6 g/dl (31.0-35.0); Mean Corpuscular Hemoglobin 29.6 pg (27.0-33.0); Monocytes Absolute Auto 0.4 X10*3/uL (0.1-1.2); Monocytes Percent Auto 6.4 % (2-11); Neutrophils Absolute Auto 3.8 x10*3/uL (2.0-8.3); Neutrophils Percent Auto 62.5 % (45-73); Platelet Count 252 X10*3/uL (160-400); Red Blood Count 3.88 X10*6/uL (4.20-5.50); Red Cell Distribution Width 14.1 % (11.0-16.0); White Blood Count 6.1 X10*3/uL (4.8-10.8)
[2024-12-07 05:52] LABS: Lithium 1.05 mmol/L (0.60-1.20)
[2024-12-07 06:01] LABS: Acetaminophen LAB < 3 mcg/mL (<30); Salicylate < 5.0 mg/dL (15-30)
[2024-12-07 06:07] LABS: Alanine Aminotransferase 10 U/L (0-31); Albumin Level 3.6 g/dL (3.5-5.0); Alkaline Phosphatase 49 U/L (39-117); Anion Gap 11 (12-20); Aspartate Amino Transferase 12 U/L (5-31); Bilirubin Total 0.1 mg/dL (0.0-1.0); Blood Urea Nitrogen 13 mg/dL (9-16); Calcium 9.2 mg/dL (8.4-10.2); Carbon Dioxide 22 mmol/L (22-29); Chloride 109 mmol/L (96-108); Creatinine Clr Calc Pharmacy 115.4; Estimated Glomerular Filt Rate > 60; Ethanol < 10 mg/dL; Glucose Random 113 mg/dL (60-115); Potassium 3.9 mmol/L (3.3-5.1); Sodium 138 mmol/L (135-145); Total Protein 6.2 g/dL (6.5-8.0)
[2024-12-07 06:11] VITALS: BP 99/71; PULSE 73; RESP 19; TEMP 37.4; O2SAT 97
[2024-12-07 08:55] VITALS: BP 99/71; PULSE 73; RESP 19; TEMP 37.4; O2SAT 97
[2024-12-07] MEDS: DULoxetine HCl 30 MG CAPSULE.DR PO (10:11)
[2024-12-07] MEDS: cloNIDine HCL 0.1 MG TABLET PO (10:11)
[2024-12-07] MEDS: DULoxetine HCl 60 MG CAPSULE.DR PO (10:11)
[2024-12-07] MEDS: Multivitamin TABLET 1 TAB PO (10:12)
[2024-12-07] MEDS: Benztropine Mesylate 0.5 MG TABLET PO (10:12)
[2024-12-07] MEDS: HaloperidoL 5 MG TABLET PO (10:12)
[2024-12-07] MEDS: Cholecalciferol (Vitamin D3) 25 MCG TABLET PO (10:12)
[2024-12-07] MEDS: Loratadine 10 MG TABLET PO (10:12)
== END 2024-12-07 10:18 | disposition home or self-care (01) ==
PROVIDERS: Emergency Provider Emergency Medicine Emergency Medical Services; PCP Nurse Practitioner Family
DX: R44.0 Auditory hallucinations (principal); F60.3 Borderline personality disorder; R45.851 Suicidal ideations; J44.9 Chronic obstructive pulmonary disease, unspecified; J45.909 Unspecified asthma, uncomplicated; Z79.899 Other long term (current) drug therapy
CPT/HCPCS: 36415; 80053; 80143; 80178; 80179; 80307; 81003; 81025; 85025; 99284; S9485

== ENCOUNTER 2024-12-10 16:35 | Emergency (ER) | payer OTHER, SELFPAY ==
[2024-12-10 16:42] VITALS: BP 126/82; PULSE 86; O2SAT 98
[2024-12-10 16:49] VITALS: BP 119/71; PULSE 84; RESP 18; TEMP 36.4; O2SAT 97
[2024-12-10 16:50] VITALS: BP 119/71; PULSE 84; RESP 18; TEMP 36.4; O2SAT 97; BMI 47.8
[2024-12-10 17:12] VITALS: BMI 34.9
--- NOTE | 2024-12-10 17:19 | PC.NURSE ---
Using bathroom at this time. Ambulating with steady gait.
[2024-12-10 17:44] LABS: MANUAL DIFF FLAG NO
[2024-12-10 17:46] LABS: Basophils Percent Auto 0.4 % (0-2); Eosinophils Absolute Auto 0.1 X10*3/uL (0.0-0.4); Eosinophils Percent Auto 0.9 % (0-4); Hematocrit 36.8 % (37.0-47.0); Hemoglobin 11.8 g/dl (12.0-16.0); Imm Gran Abs Auto 0.03 X10*3/uL (0.00-0.03); Imm Gran Pct Auto 0.4 % (0.0-0.4); Lymphocytes Absolute Auto 1.4 X10*3/uL (1.2-4.9); Lymphocytes Percent Auto 16.5 % (20-40); Mean Corpuscular HGB Conc 32.1 g/dl (31.0-35.0); Mean Corpuscular Hemoglobin 29.2 pg (27.0-33.0); Mean Corpuscular Volume 91.1 fL (80.0-98.0); Mean Platelet Volume 10.7 fL (9.4-12.3); Monocytes Absolute Auto 0.5 X10*3/uL (0.1-1.2); Monocytes Percent Auto 6.4 % (2-11); Neutrophils Absolute Auto 6.2 x10*3/uL (2.0-8.3); Neutrophils Percent Auto 75.4 % (45-73); Platelet Count 240 X10*3/uL (160-400); Red Blood Count 4.04 X10*6/uL (4.20-5.50); Red Cell Distribution Width 13.6 % (11.0-16.0); White Blood Count 8.2 X10*3/uL (4.8-10.8)
[2024-12-10 17:48] LABS: Appearance Urine Clear; Color Urine Yellow; Glucose Urine UA Negative (Negative); Leukocyte Esterase Urine Trace (Negative); Nitrite Urine Negative (Negative); PH 6.5 (5.0-9.0); Specific Gravity - Urine <= 1.005 (1.005-1.025); UMIC TRIGGER UA YES; UPreg QC Valid YES; Urine Blood Negative (Negative); Urine Ketones Negative (Negative); Urine Pregnancy NEGATIVE (NEGATIVE); Urine Protein Negative (Neg-Trace)
[2024-12-10 17:50] LABS: Bacteria Urine 1+ (None Seen); Hyaline Casts Urine 0-2 /LPF (0-2); RBC Urine 0-2 /HPF (0-2); WBC Urine 0-5 /HPF (0-5)
[2024-12-10 18:02] LABS: Amphetamine Screen Urine Not Detected (Not Detect); Barbiturates, Urine Not Detected (Not Detect); Benzodiazepines Screen Urine Not Detected (Not Detect); Buprenorphine Scr Not Detected (Not Detect); Cannabinoid Screen Urine Not Detected (Not Detect); Cocaine Screen Urine Not Detected (Not Detect); Fentanyl, urine Not Detected (Not Detect); Methadone Screen, Urine Not Detected (Not Detect); Opiate Screen Urine Not Detected (Not Detect); Oxycodone Screen Urine Not Detected (Not Detect); Phencyclidine Screen Urine Not Detected (Not Detect)
[2024-12-10 18:03] LABS: Acetaminophen LAB < 3 mcg/mL (<30); Alanine Aminotransferase 16 U/L (0-31); Albumin Level 3.9 g/dL (3.5-5.0); Alkaline Phosphatase 52 U/L (39-117); Anion Gap 12 (12-20); Aspartate Amino Transferase 15 U/L (5-31); Bilirubin Total 0.1 mg/dL (0.0-1.0); Blood Urea Nitrogen 7 mg/dL (9-16); Carbon Dioxide 19 mmol/L (22-29); Chloride 108 mmol/L (96-108); Creatinine Clr Calc Pharmacy 113.9; Estimated Glomerular Filt Rate > 60; Ethanol < 10 mg/dL; Glucose Random 109 mg/dL (60-115); Potassium 3.9 mmol/L (3.3-5.1); Salicylate < 5.0 mg/dL (15-30); Sodium 135 mmol/L (135-145); Total Protein 6.6 g/dL (6.5-8.0)
--- NOTE | 2024-12-10 18:32 | ED.GENADULT ---
HPI - General Adult General Chief complaint: Psychiatric Symptoms Stated complaint: self harm, cut herself with broken glass Time Seen by Provider: 12/10/24 16:38 Source: patient, RN notes reviewed and old records reviewed Mode of arrival: EMS Limitations: no limitations History of Present Illness ED Provider: Sindy HPI narrative: 39-year-old female with past medical history significant for major depressive disorder, PTSD, borderline personality disorder, COPD, GERD presents for evaluation of self-harm Patient reports that she had a flashback today causing her to have increased depression and self-harm. She reports that she found a piece of glass and ?I picked it up and cut my left arm. ? She does have a long history of self-harm usually with head striking against the wall. The patient reports that she has been having a tough few days and is interested in speaking the crisis due to depression with Self-harm denies any somatic complaints Related Data Home Medications ?Medication ?Instructions ?Recorded ?Confirmed benztropine 0.5 mg tablet 0.5 mg PO BID 04/30/24 12/07/24 clonidine HCl 0.1 mg tablet 0.1 mg PO TID 04/30/24 12/07/24 omeprazole 20 mg capsule,delayed 20 mg PO Q OTHER DAY 04/30/24 12/07/24 release prazosin 5 mg capsule 15 mg PO BEDTIME 04/30/24 12/07/24 trazodone 100 mg tablet 200 mg PO BEDTIME insomnia 04/30/24 12/07/24 multivitamin 1 tab PO DAILY 05/17/24 12/07/24 zolpidem 10 mg tablet 10 mg PO BEDTIME insomnia 05/17/24 12/07/24 cholecalciferol (vitamin D3) 25 25 mcg PO DAILY 07/29/24 12/07/24 mcg (1,000 unit) tablet (Vitamin D3) haloperidol 5 mg tablet 5 mg PO TID 08/15/24 12/07/24 haloperidol decanoate 100 mg/mL 75 mg IM Q28D 08/15/24 12/03/24 intramuscular solution prazosin 1 mg capsule 1 mg PO BEDTIME 08/15/24 12/07/24 calcium 600 mg (as 1 tab PO BID 11/02/24 12/07/24 carbonate)-vitamin D3 10 mcg (400 unit) tablet fluticasone propionate 230 2 puff inhalation BID 11/02/24 12/07/24 mcg-salmeterol 21 mcg/actuation HFA inhaler (Advair HFA) cetirizine 10 mg tablet 10 mg PO DAILY 11/06/24 12/07/24 duloxetine 30 mg capsule,delayed 30 mg PO DAILY 11/06/24 12/07/24 release diphenhydramine HCl 50 mg capsule 100 mg PO BEDTIME insomnia 12/03/24 12/07/24 (Banophen) umeclidinium 62.5 mcg/actuation 1 inh inhalation DAILY 12/03/24 12/07/24 blister powder for inhalation (Incruse Ellipta) Previous Rx's ?Medication ?Instructions ?Recorded lorazepam 1 mg tablet 1 mg PO TID PRN anxiety/agitation 05/22/24 #0 tabs albuterol sulfate 90 mcg/actuation 2 puff inhalation Q4-6H PRN 08/30/24 aerosol inhaler shortness of breath or wheezing #6.7 grams duloxetine 60 mg capsule,delayed 60 mg PO DAILY 30 days #30 caps 10/03/24 release hydroxyzine HCl 50 mg tablet 50 mg PO Q6H PRN mild anxiety 30 10/03/24 days #90 tabs lithium carbonate 450 mg 900 mg (2 x 450 mg) PO BEDTIME 30 10/17/24 tablet,extended release days #60 tabs Allergies Allergy/AdvReac Type Severity Reaction Status Date / Time carbamazepine [From TEGRETOL] AdvReac Mild Nausea and Verified 12/10/24 17:09 Vomiting topiramate [From Topamax] AdvReac Mild Nausea and Verified 12/10/24 17:09 Vomiting Review of Systems Constitutional: Constitutional: Denies body ache(s), Denies chills, Denies fever(s) and Denies headache(s) Eyes: Eyes: Denies blurry vision ENT: Denies dysphagia, Denies vertigo, Denies dizziness and Denies headache(s) Cardiovascular: Cardiovascular: Denies chest pain and Denies dyspnea Respiratory: Respiratory: Denies cough and Denies dyspnea Gastrointestinal: Gastrointestinal: Denies abdominal pain, Denies dysphagia and Denies vomiting Musculoskeletal: Musculoskeletal: Denies back pain Integumentary/Breasts: Skin/Breast: Denies rash and Reports wounds Neurologic: Denies vertigo, Denies dizziness and Denies headache(s) Psychiatric: Psychiatric: Denies anxiety PMFSH Past Medical History Medical History Depression Schizoaffective disorder, depressive type Depression with suicidal ideation MDD (major depressive disorder), recurrent, severe, with psychosis Port-A-Cath in place History of electroconvulsive therapy COVID-19 COVID-19 Sprain of left foot Chronic post-traumatic stress disorder (PTSD) COPD (chronic obstructive pulmonary disease) Increased BMI GERD (gastroesophageal reflux disease) Recurrent major depression-severe Acute post-traumatic stress disorder Injury, self-inflicted Suicidal ideation Self-harming behavior Intentional self-harm Suicidal ideation Borderline personality disorder Schizoaffective disorder Adjustment disorder Asthma Depression Anxiety PTSD (post-traumatic stress disorder) Family History Family History Mother Brain cancer Other No family history of cardiac disease Social History Social History Household Members: Other Household Members Other:: group housemates Housing: Other Housing Other:: [facility] [place] Do you presently have visiting nurse or other home services: No Unable to assess alcohol history related to: Unable to respond Alcohol intake: current Alcohol intake frequency: does not drink Patient Tobacco Use Status: Current someday Tobacco user Tobacco use type: Cigarette Cigarette Packs Per Day: 0.5 Cigarettes Per Day: 8 Years Smoked: 20 e-Cigarette/Vaping Use: Never Used Second Hand Smoke Exposure: No Substance Use Type: Marijuana Advance Directives: No Advance Directives Information Provided: Yes service: No Current occupation: rt handed Sexual orientation: Straight/Heterosexual Physical Exam ED Vital Signs: Vital Signs - 24 hr 12/10/24 16:49 12/10/24 16:50 Temperature 97.6 F 97.6 F Pulse Rate 84 84 Respiratory Rate 18 18 Blood Pressure 119/71 119/71 Pulse Oximetry 97 97 Oxygen Delivery Method Room Air Room Air BMI result Body Mass Index 34.9 Const General: healthy appearing, comfortable, no acute distress, alert and awake Nutritional Appearance: well nourished Orientation/consciousness: patient oriented x3 HENMT Head: Yes normocephalic and Yes atraumatic Eyes Eyelids: Yes eyelids normal Conjunctivae: conjunctivae normal Sclerae: sclerae normal Corneas: corneas normal Pupils: Equal, round and reactive pupils present EOM: EOMs intact bilaterally Neck Neck: Yes full ROM Resp Effort & Inspection: normal respiratory effort, able to speak in complete sentences and not labored Skin Other: Patient was too small, superficial abrasions to the left forearm, no deep lacerations General skin exam: elasticity normal Neuro General: patient oriented x3 Cranial nerves: Yes CN's II-XII intact bilaterally, Yes Equal, round and reactive pupils present and Yes Bilaterally intact EOM present Cognition (Neuro): normal cognition Extrem Other: Moving all extremities well without any obvious deformities Medical Decision Making Medical Decision Making [facility] Narrative: 39-year-old female presents for evaluation of depression with suicidal ideation. She was frequently in this ER for similar complaints. She was [place] [facility] [place] and [place] issues at [place] but she had a flashback. She was seen with the care team and ultimately the patient reports that she was feeling better, she was not suicidal and has no active self-harm thoughts. She was requesting discharge. The patient was cleared by the care team and I feel that she was safe for discharge. She has a care plan in place Differential Diagnosis Differential Diagnoses: The differential diagnosis associated with the presentation includes PTSD Depression Borderline personality disorder Self-harm Lab Data [facility] Lab Attestation statement: I reviewed the patient's lab results. No leukocytosis. The patient has a mild normocytic anemia consistent with her baseline. No significant chemistry abnormalities warranting intervention. Her CO2 is slightly low likely due to hyperventilation in her stressful situation. 12/10/24 17:40 12/10/24 17:40 Labs: Lab Results 12/10/24 Range/Units 17:40 WBC 8.2 (4.8-10.8) X10*3/uL RBC 4.04 L (4.20-5.50) X10*6/uL Hgb 11.8 L (12.0-16.0) g/dl Hct 36.8 L (37.0-47.0) % MCV 91.1 (80.0-98.0) fL MCH 29.2 (27.0-33.0) pg MCHC 32.1 (31.0-35.0) g/dl RDW 13.6 (11.0-16.0) % Plt Count 240 (160-400) X10*3/uL MPV 10.7 (9.4-12.3) fL Immature Gran % (Auto) 0.4 (0.0-0.4) % Neut % (Auto) 75.4 H (45-73) % Lymph % (Auto) 16.5 L (20-40) % Crane % (Auto) 6.4 (2-11) % Eos % (Auto) 0.9 (0-4) % Baso % (Auto) 0.4 (0-2) % Lymph # (Auto) 1.4 (1.2-4.9) X10*3/uL Crane # (Auto) 0.5 (0.1-1.2) X10*3/uL Eos # (Auto) 0.1 (0.0-0.4) X10*3/uL Baso # (Auto) 0.0 (0.0-0.2) X10*3/uL Abs Immat Gran (auto) 0.03 (0.00-0.03) X10*3/uL Absolute Neuts (auto) 6.2 (2.0-8.3) x10*3/uL Absolute Nucleated RBC 0.000 (0.0-0.012) X10*3/uL Nucleated RBC % (auto) 0.0 (0.0-0.2) /100WBC Sodium 135 (135-145) mmol/L Potassium 3.9 (3.3-5.1) mmol/L Chloride 108 (96-108) mmol/L Carbon Dioxide 19 L (22-29) mmol/L Anion Gap 12 (12-20) BUN 7 L (9-16) mg/dL Creatinine 0.71 (0.5-1.4) mg/dL Estim Creat Clear Calc 113.9 Estimated GFR > 60 Random Glucose 109 (60-115) mg/dL Calcium 9.0 (8.4-10.2) mg/dL Total Bilirubin 0.1 (0.0-1.0) mg/dL AST 15 (5-31) U/L ALT 16 (0-31) U/L Alkaline Phosphatase 52 (39-117) U/L Total Protein 6.6 (6.5-8.0) g/dL Albumin 3.9 (3.5-5.0) g/dL Urine Color Yellow Urine Appearance Clear Urine pH 6.5 (5.0-9.0) Ur Specific [place] <= 1.005 (1.005-1.025) Urine Protein Negative (Neg-Trace) mg/dL Urine Glucose (UA) Negative (Negative) mg/dL Urine Ketones Negative (Negative) mg/dL Urine Blood Negative (Negative) Urine Nitrite Negative (Negative) Ur Leukocyte Esterase Trace H (Negative) Urine RBC 0-2 (0-2) /HPF Urine WBC 0-5 (0-5) /HPF Ur Squamous Epith Cells 6-10 (0-2) /HPF Urine Bacteria 1+ (None Seen) Hyaline Casts 0-2 (0-2) /LPF Urine Test NEGATIVE (NEGATIVE) Salicylates < 5.0 L (15-30) mg/dL Urine Opiates Screen Not Detected (Not Detect) Ur Buprenorphine Scrn Not Detected (Not Detect) ng/mL Ur Oxycodone Screen Not Detected (Not Detect) ng/mL Urine Methadone Screen Not Detected (Not Detect) ng/mL Urine Fentanyl Screen Not Detected (Not Detect) Acetaminophen < 3 (<30) mcg/mL Ur Barbiturates Screen Not Detected (Not Detect) Ur Phencyclidine Scrn Not Detected (Not Detect) Ur Amphetamines Screen Not Detected (Not Detect) U Benzodiazepines Scrn Not Detected (Not Detect) Urine Cocaine Screen Not Detected (Not Detect) U Marijuana (THC) Screen Not Detected (Not Detect) Ethyl Alcohol < 10 mg/dL Discharge Plan Discharge Clinical Impression: Intentional self-harm Patient Disposition: Home, Self-Care Instructions: Depression (ED) Additional Instructions: Take all your medications as prescribed. Return to the ER immediately if you have any additional thoughts of harming herself or anybody else Follow-up with your primary doctor, return for new or worsening symptoms Prescriptions: No Action clonidine HCl 0.1 mg tablet 0.1 mg PO TID Rx Instructions: takes at 0800, 1400 and 2000 benztropine 0.5 mg tablet 0.5 mg PO BID prazosin 5 mg capsule 15 mg PO BEDTIME trazodone 100 mg tablet 200 mg PO BEDTIME omeprazole 20 mg capsule,delayed release(DR/EC) 20 mg PO Q OTHER DAY cholecalciferol (vitamin D3) [Vitamin D3] 25 mcg (1,000 unit) tablet 25 mcg PO DAILY haloperidol 5 mg tablet 5 mg PO TID prazosin 1 mg capsule 1 mg PO BEDTIME haloperidol decanoate 100 mg/mL solution 75 mg IM Q28D albuterol sulfate 90 mcg/actuation HFA aerosol inhaler 2 puff inhalation Q4-6H PRN (Reason: shortness of breath or wheezing) Qty: 6.7 0RF hydroxyzine HCl 50 mg Tablet 50 mg PO Q6H PRN (Reason: mild anxiety) 30 Days Qty: 90 0RF duloxetine 60 mg capsule,delayed release(DR/EC) 60 mg PO DAILY 30 Days Qty: 30 0RF Rx Instructions: take with 30mg capsule diphenhydramine HCl [Banophen] 50 mg capsule 100 mg PO BEDTIME Incruse Ellipta 62.5 mcg/actuation blister with device 1 inh INHALATION DAILY zolpidem 10 mg tablet 10 mg PO BEDTIME multivitamin Tablet 1 tab PO DAILY lorazepam 1 mg Tablet 1 mg PO TID PRN (Reason: anxiety/agitation) Qty: 0 0RF lithium carbonate 450 mg Tablet Extended Release 900 mg PO BEDTIME 30 Days Qty: 60 0RF fluticasone propion-salmeterol [Advair HFA] 230-21 mcg/actuation HFA aerosol inhaler 2 puff INHALATION BID calcium carbonate-vitamin D3 600 mg-10 mcg (400 unit) tablet 1 tab PO BID cetirizine 10 mg tablet 10 mg PO DAILY duloxetine 30 mg capsule,delayed release(DR/EC) 30 mg PO DAILY Interventions: [place]-Suicide Risk Severity Scale Last Done: 12/10/24 17:09 Print Language: Armenian
[2024-12-10 18:48] VITALS: BP 119/71; PULSE 84; RESP 18; TEMP 36.4; O2SAT 97
== END 2024-12-10 18:48 | disposition home or self-care (01) ==
PROVIDERS: Physician Assistant; Emergency Provider Emergency Medicine; PCP Nurse Practitioner Family
DX: R45.88 Nonsuicidal self-harm (principal); F32.A Depression, unspecified; F60.3 Borderline personality disorder; Z79.899 Other long term (current) drug therapy
CPT/HCPCS: 36415; 80053; 80143; 80179; 80307; 81001; 81025; 85025; 99284; 99285; S9485

== ENCOUNTER 2024-12-15 20:01 | Emergency (ER) | payer OTHER, SELFPAY ==
[2024-12-15 20:12] VITALS: BP 130/78; PULSE 92; O2SAT 100
[2024-12-15 21:03] LABS: Appearance Urine Clear; Color Urine Yellow; Glucose Urine UA Negative (Negative); Leukocyte Esterase Urine Negative (Negative); Nitrite Urine Negative (Negative); PH 7.5 (5.0-9.0); Specific Gravity - Urine <= 1.005 (1.005-1.025); UMIC TRIGGER UACC YES; Urine Blood Trace (Negative); Urine Ketones Negative (Negative); Urine Protein Negative (Neg-Trace)
[2024-12-15 21:08] LABS: Bacteria Urine None Seen (None Seen); Hyaline Casts Urine 0-2 /LPF (0-2); RBC Urine 0-2 /HPF (0-2); Squamous Epithelial Cell Urine 0-2 /HPF (0-2); WBC Urine 0-5 /HPF (0-5)
[2024-12-15 21:14] LABS: UPreg QC Valid YES; Urine Pregnancy NEGATIVE (NEGATIVE)
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
[2024-12-15 22:43] LABS: MANUAL DIFF FLAG NO
[2024-12-15 22:45] LABS: Basophils Percent Auto 0.4 % (0-2); Eosinophils Absolute Auto 0.2 X10*3/uL (0.0-0.4); Eosinophils Percent Auto 2.4 % (0-4); Hematocrit 34.5 % (37.0-47.0); Hemoglobin 11.1 g/dl (12.0-16.0); Imm Gran Abs Auto 0.01 X10*3/uL (0.00-0.03); Imm Gran Pct Auto 0.1 % (0.0-0.4); Lymphocytes Absolute Auto 2.2 X10*3/uL (1.2-4.9); Lymphocytes Percent Auto 26.3 % (20-40); Mean Corpuscular HGB Conc 32.2 g/dl (31.0-35.0); Mean Corpuscular Volume 90.1 fL (80.0-98.0); Mean Platelet Volume 10.5 fL (9.4-12.3); Monocytes Absolute Auto 0.5 X10*3/uL (0.1-1.2); Monocytes Percent Auto 5.5 % (2-11); Neutrophils Absolute Auto 5.4 x10*3/uL (2.0-8.3); Neutrophils Percent Auto 65.3 % (45-73); Platelet Count 276 X10*3/uL (160-400); Red Blood Count 3.83 X10*6/uL (4.20-5.50); Red Cell Distribution Width 14.2 % (11.0-16.0); White Blood Count 8.2 X10*3/uL (4.8-10.8)
[2024-12-15 22:58] LABS: Lithium 1.05 mmol/L (0.60-1.20)
[2024-12-15 23:08] LABS: Alanine Aminotransferase 9 U/L (0-31); Albumin Level 3.7 g/dL (3.5-5.0); Alkaline Phosphatase 51 U/L (39-117); Anion Gap 11 (12-20); Aspartate Amino Transferase 19 U/L (5-31); Bilirubin Total 0.1 mg/dL (0.0-1.0); Blood Urea Nitrogen 8 mg/dL (9-16); Calcium 9.2 mg/dL (8.4-10.2); Carbon Dioxide 25 mmol/L (22-29); Chloride 109 mmol/L (96-108); Estimated Glomerular Filt Rate > 60; Ethanol 10 mg/dL; Glucose Random 110 mg/dL (60-115); Potassium 3.9 mmol/L (3.3-5.1); Sodium 141 mmol/L (135-145); Total Protein 6.4 g/dL (6.5-8.0)
[2024-12-15 23:25] LABS: Amphetamine Screen Urine Not Detected (Not Detect); Barbiturates, Urine Not Detected (Not Detect); Benzodiazepines Screen Urine Not Detected (Not Detect); Buprenorphine Scr Not Detected (Not Detect); Cannabinoid Screen Urine POSITIVE (Not Detect); Cocaine Screen Urine Not Detected (Not Detect); Fentanyl, urine Not Detected (Not Detect); Methadone Screen, Urine Not Detected (Not Detect); Opiate Screen Urine Not Detected (Not Detect); Oxycodone Screen Urine Not Detected (Not Detect); Phencyclidine Screen Urine Not Detected (Not Detect)
--- NOTE | 2024-12-15 23:37 | PC.NURSE ---
This comic book writer assumed care of this Pt at 2300. Pt awake, calm and cooperative, ambulating independently with steady gait to BR and back to room. Plan of care on going.
--- NOTE | 2024-12-16 01:38 | ED.PSYCH ---
HPI - Psych General Chief Complaint: Psychiatric Symptoms Stated Complaint: SI Time Seen by Provider: 12/15/24 21:18 Source: patient and EMS Mode of arrival: EMS Limitations: no limitations History of Present Illness ED Provider: Dr. Rosi Barcenas HPI Narrative: Patient comes to the emergency room via ambulance stating that she is suicidal. Patient requesting to be admitted to am 5. Patient denies any suicidal attempts.. Patient states that today she had flashbacks causing her to have increased anxiety and wanting to harm herself but she did not do it. Denies HI Related Data Home Medications ?Medication ?Instructions ?Recorded ?Confirmed benztropine 0.5 mg tablet 0.5 mg PO BID 04/30/24 12/07/24 clonidine HCl 0.1 mg tablet 0.1 mg PO TID 04/30/24 12/07/24 omeprazole 20 mg capsule,delayed 20 mg PO Q OTHER DAY 04/30/24 12/07/24 release prazosin 5 mg capsule 15 mg PO BEDTIME 04/30/24 12/07/24 trazodone 100 mg tablet 200 mg PO BEDTIME insomnia 04/30/24 12/07/24 multivitamin 1 tab PO DAILY 05/17/24 12/07/24 zolpidem 10 mg tablet 10 mg PO BEDTIME insomnia 05/17/24 12/07/24 cholecalciferol (vitamin D3) 25 25 mcg PO DAILY 07/29/24 12/07/24 mcg (1,000 unit) tablet (Vitamin D3) haloperidol 5 mg tablet 5 mg PO TID 08/15/24 12/07/24 haloperidol decanoate 100 mg/mL 75 mg IM Q28D 08/15/24 12/03/24 intramuscular solution prazosin 1 mg capsule 1 mg PO BEDTIME 08/15/24 12/07/24 calcium 600 mg (as 1 tab PO BID 11/02/24 12/07/24 carbonate)-vitamin D3 10 mcg (400 unit) tablet fluticasone propionate 230 2 puff inhalation BID 11/02/24 12/07/24 mcg-salmeterol 21 mcg/actuation HFA inhaler (Advair HFA) cetirizine 10 mg tablet 10 mg PO DAILY 11/06/24 12/07/24 duloxetine 30 mg capsule,delayed 30 mg PO DAILY 11/06/24 12/07/24 release diphenhydramine HCl 50 mg capsule 100 mg PO BEDTIME insomnia 12/03/24 12/07/24 (Banophen) umeclidinium 62.5 mcg/actuation 1 inh inhalation DAILY 12/03/24 12/07/24 blister powder for inhalation (Incruse Ellipta) Previous Rx's ?Medication ?Instructions ?Recorded lorazepam 1 mg tablet 1 mg PO TID PRN anxiety/agitation 05/22/24 #0 tabs albuterol sulfate 90 mcg/actuation 2 puff inhalation Q4-6H PRN 08/30/24 aerosol inhaler shortness of breath or wheezing #6.7 grams duloxetine 60 mg capsule,delayed 60 mg PO DAILY 30 days #30 caps 10/03/24 release hydroxyzine HCl 50 mg tablet 50 mg PO Q6H PRN mild anxiety 30 10/03/24 days #90 tabs lithium carbonate 450 mg 900 mg (2 x 450 mg) PO BEDTIME 30 10/17/24 tablet,extended release days #60 tabs Allergies Allergy/AdvReac Type Severity Reaction Status Date / Time carbamazepine [From TEGRETOL] AdvReac Mild Nausea and Verified 12/10/24 17:09 Vomiting topiramate [From Topamax] AdvReac Mild Nausea and Verified 12/10/24 17:09 Vomiting Review of Systems Review of Systems: Constitutional : No Weight loss, No Fever, No Chills, No Night Sweats, No Fatigue, No Malaise ENT/Mouth : No Hearing loss, No Ear Pain, No Nasal Congestion, No Sinus Pain, No Hoarseness, No sore throat, No Rhinorrhea, No Swallowing Difficulty Eyes: No Eye Pain, No Swelling, No Redness, No Foreign Body, No Discharge, No Vision Changes Cardiovascular : No Chest Pain, No SOB, No Dyspnea on Exertion, No Orthopnea, No Edema, No Palpitations Respiratory : No Cough, No Sputum, No Wheezing, No Smoke Exposure, No Dyspnea Gastrointestinal : No Nausea, No Vomiting, No Diarrhea, No Constipation, No abdominal Pain, No Hematochezia, No Melena Genitourinary : no irregular bleeding, No Dysuria, No Urinary Frequency, No Hematuria, No Urinary Incontinence, No Urgency, No Flank Pain, No Urinary Flow Changes, No Hesitancy Musculoskeletal : No joint pain, No Myalgias, No Joint Swelling Skin : No Skin Lesions, No rash Neuro : No Weakness, No Numbness, No Paresthesias, No Loss of Consciousness, No Dizziness, No Headache Psych : No Anxiety/Panic, complaining of suicidal ideation with no plan, denies HI Heme/Lymph: No Bruising, No Bleeding,No Lymphadenopathy Endocrine : No Polyuria, No Polydipsia, No Temperature Intolerance PMF Past Medical History Medical History Depression Schizoaffective disorder, depressive type Depression with suicidal ideation MDD (major depressive disorder), recurrent, severe, with psychosis Port-A-Cath in place History of electroconvulsive therapy COVID-19 COVID-19 Sprain of left foot Chronic post-traumatic stress disorder (PTSD) COPD (chronic obstructive pulmonary disease) Increased BMI GERD (gastroesophageal reflux disease) Recurrent major depression-severe Acute post-traumatic stress disorder Injury, self-inflicted Suicidal ideation Self-harming behavior Intentional self-harm Suicidal ideation Borderline personality disorder Schizoaffective disorder Adjustment disorder Asthma Depression Anxiety PTSD (post-traumatic stress disorder) Family History Family History Mother Brain cancer Other No family history of cardiac disease Social History Social History Household Members: Other Household Members Other:: group housemates Housing: Other Housing Other:: [facility] prison Do you presently have visiting nurse or other home services: No Unable to assess alcohol history related to: Unable to respond Alcohol intake: current Alcohol intake frequency: does not drink Patient Tobacco Use Status: Current someday Tobacco user Tobacco use type: Cigarette Cigarette Packs Per Day: 0.5 Cigarettes Per Day: 8 Years Smoked: 20 Smoked in Last 30 Days: Yes e-Cigarette/Vaping Use: Never Used Second Hand Smoke Exposure: No Use of substances other than those prescribed or required for medical reasons: No Substance Use Type: Marijuana Advance Directives: No Advance Directives Information Provided: Yes Patient : No service: No Current occupation: rt handed Sexual orientation: Straight/Heterosexual Physical Exam Vital Signs: Vital Signs: Last Vital Signs Temp 97.9 F 12/16/24 06:23 Pulse 76 12/16/24 06:23 Resp 20 12/16/24 06:23 BP 109/61 12/16/24 06:23 Pulse Ox 97 12/16/24 06:23 O2 Del Method Room Air 12/16/24 06:23 Const: Other: Appearance: Alert. Oriented X3. No acute distress. Eyes: Pupils equal, round and reactive to light. ENT: Pharynx normal. Neck: Normal inspection. Neck supple. No lymph nodes noted. No crepitus CVS: Normal heart rate and rhythm. Pulses normal. Normal S1 and S2 Respiratory: No respiratory distress. Breath sounds normal. No Wheezing. No rales Abdomen: Soft and nontender. No rigidity. No distention. Skin: Skin warm and dry. Normal skin color. Normal skin turgor. All scars in both arms, no new scars Extremities: No lower extremity edema. No Lacerations. No Rash Neuro: Oriented X 3. No motor deficit. No sensory deficit. Moving all extremities. No slurred speech. CN 2 through 12 grossly intact Psych: calm, cooperative, normal affect Course Reevaluation(s) Reevaluation #1: Time: 08:07 Date: 12/16/24 Provider: Jose Guadalupe Ramírez MD Patient in physician observation for psychiatric evaluation.? No acute events reported overnight. No current complaints. VS stable.? Patient is pending CARE team evaluation. Will continue to monitor. Reevaluation #2: 12/16/2024 10:45 Patient was seen by crisis at this time she is cleared for discharge no SI no HI. This is the end of the observation patient will be discharged home Time: 10:46 Medical Decision Making Medical Decision Making MDM Narrative: Patient is here voluntarily, patient well known to the ED My interpretation of labs: Patient's hematology at baseline, chemistry at baseline urine negative for UTI, test negative, U tox positive for marijuana, alcohol negative, lithium level therapeutic Physician observation started at 01:00 Differential Diagnosis Differential Diagnoses: The differential diagnosis associated with the presentation includes (Anxiety, depression, polysubstance abuse, malingering) Admission/Observation Consideration of admission/observation: Escalation of care including admission/observation considered (Patient is under physician observation waiting to be seen by the care team to determine patient's disposition) Lab Data 12/15/24 22:37 12/15/24 22:37 Labs: Lab Results 12/15/24 12/15/24 12/15/24 Range/Units 20:38 22:37 22:37 WBC 8.2 (4.8-10.8) X10*3/uL RBC 3.83 L (4.20-5.50) X10*6/uL Hgb 11.1 L (12.0-16.0) g/dl Hct 34.5 L (37.0-47.0) % MCV 90.1 (80.0-98.0) fL MCH 29.0 (27.0-33.0) pg MCHC 32.2 (31.0-35.0) g/dl RDW 14.2 (11.0-16.0) % Plt Count 276 (160-400) X10*3/uL MPV 10.5 (9.4-12.3) fL Immature Gran % (Auto) 0.1 (0.0-0.4) % Neut % (Auto) 65.3 (45-73) % Lymph % (Auto) 26.3 (20-40) % [place] % (Auto) 5.5 (2-11) % Eos % (Auto) 2.4 (0-4) % Baso % (Auto) 0.4 (0-2) % Lymph # (Auto) 2.2 (1.2-4.9) X10*3/uL [place] # (Auto) 0.5 (0.1-1.2) X10*3/uL Eos # (Auto) 0.2 (0.0-0.4) X10*3/uL Baso # (Auto) 0.0 (0.0-0.2) X10*3/uL Abs Immat Gran (auto) 0.01 (0.00-0.03) X10*3/uL Absolute Neuts (auto) 5.4 (2.0-8.3) x10*3/uL Absolute Nucleated RBC 0.000 (0.0-0.012) X10*3/uL Nucleated RBC % (auto) 0.0 (0.0-0.2) /100WBC Sodium Cancelled 141 Potassium Cancelled Chloride Carbon Dioxide Anion Gap BUN Creatinine Estim Creat Clear Calc Estimated GFR Random Glucose Calcium Total Bilirubin AST ALT Alkaline Phosphatase Total Protein Albumin Urine Color Yellow Urine Appearance Clear Urine pH 7.5 (5.0-9.0) Ur Specific [place] <= 1.005 (1.005-1.025) Urine Protein Negative (Neg-Trace) mg/dL Urine Glucose (UA) Negative (Negative) mg/dL Urine Ketones Negative (Negative) mg/dL Urine Blood Trace H (Negative) Urine Nitrite Negative (Negative) Ur Leukocyte Esterase Negative (Negative) Urine RBC 0-2 (0-2) /HPF Urine WBC 0-5 (0-5) /HPF Ur Squamous Epith Cells 0-2 (0-2) /HPF Urine Bacteria None Seen (None Seen) Hyaline Casts 0-2 (0-2) /LPF Urine Test NEGATIVE (NEGATIVE) Urine Opiates Screen Not Detected (Not Detect) Ur Buprenorphine Scrn Not Detected (Not Detect) ng/mL Ur Oxycodone Screen Not Detected (Not Detect) ng/mL Urine Methadone Screen Not Detected (Not Detect) ng/mL Urine Fentanyl Screen Not Detected (Not Detect) Ur Barbiturates Screen Not Detected (Not Detect) Ur Phencyclidine Scrn Not Detected (Not Detect) Ur Amphetamines Screen Not Detected (Not Detect) U Benzodiazepines Scrn Not Detected (Not Detect) [place] (0.60-1.20) mmol/L Urine Cocaine Screen Not Detected (Not Detect) U Marijuana (THC) Screen POSITIVE H (Not Detect) Ethyl Alcohol mg/dL 12/15/24 12/15/24 12/15/24 Range/Units 22:37 22:37 22:37 WBC (4.8-10.8) X10*3/uL RBC (4.20-5.50) X10*6/uL Hgb (12.0-16.0) g/dl Hct (37.0-47.0) % MCV (80.0-98.0) fL MCH (27.0-33.0) pg MCHC (31.0-35.0) g/dl RDW (11.0-16.0) % Plt Count (160-400) X10*3/uL MPV (9.4-12.3) fL Immature Gran % (Auto) (0.0-0.4) % Neut % (Auto) (45-73) % Lymph % (Auto) (20-40) % [place] % (Auto) (2-11) % Eos % (Auto) (0-4) % Baso % (Auto) (0-2) % Lymph # (Auto) (1.2-4.9) X10*3/uL [place] # (Auto) (0.1-1.2) X10*3/uL Eos # (Auto) (0.0-0.4) X10*3/uL Baso # (Auto) (0.0-0.2) X10*3/uL Abs Immat Gran (auto) (0.00-0.03) X10*3/uL Absolute Neuts (auto) (2.0-8.3) x10*3/uL Absolute Nucleated RBC (0.0-0.012) X10*3/uL Nucleated RBC % (auto) (0.0-0.2) /100WBC Sodium Potassium 3.9 Chloride Cancelled 109 H Carbon Dioxide Cancelled 25 Anion Gap Cancelled BUN Creatinine Estim Creat Clear Calc Estimated GFR Random Glucose Calcium Total Bilirubin AST ALT Alkaline Phosphatase Total Protein Albumin Urine Color Urine Appearance Urine pH (5.0-9.0) Ur Specific [place] (1.005-1.025) Urine Protein (Neg-Trace) mg/dL Urine Glucose (UA) (Negative) mg/dL Urine Ketones (Negative) mg/dL Urine Blood (Negative) Urine Nitrite (Negative) Ur Leukocyte Esterase (Negative) Urine RBC (0-2) /HPF Urine WBC (0-5) /HPF Ur Squamous Epith Cells (0-2) /HPF Urine Bacteria (None Seen) Hyaline Casts (0-2) /LPF Urine Test (NEGATIVE) Urine Opiates Screen (Not Detect) Ur Buprenorphine Scrn (Not Detect) ng/mL Ur Oxycodone Screen (Not Detect) ng/mL Urine Methadone Screen (Not Detect) ng/mL Urine Fentanyl Screen (Not Detect) Ur Barbiturates Screen (Not Detect) Ur Phencyclidine Scrn (Not Detect) Ur Amphetamines Screen (Not Detect) U Benzodiazepines Scrn (Not Detect) [place] (0.60-1.20) mmol/L Urine Cocaine Screen (Not Detect) U Marijuana (THC) Screen (Not Detect) Ethyl Alcohol mg/dL 12/15/24 12/15/24 12/15/24 Range/Units 22:37 22:37 22:37 WBC (4.8-10.8) X10*3/uL RBC (4.20-5.50) X10*6/uL Hgb (12.0-16.0) g/dl Hct (37.0-47.0) % MCV (80.0-98.0) fL MCH (27.0-33.0) pg MCHC (31.0-35.0) g/dl RDW (11.0-16.0) % Plt Count (160-400) X10*3/uL MPV (9.4-12.3) fL Immature Gran % (Auto) (0.0-0.4) % Neut % (Auto) (45-73) % Lymph % (Auto) (20-40) % [place] % (Auto) (2-11) % Eos % (Auto) (0-4) % Baso % (Auto) (0-2) % Lymph # (Auto) (1.2-4.9) X10*3/uL [place] # (Auto) (0.1-1.2) X10*3/uL Eos # (Auto) (0.0-0.4) X10*3/uL Baso # (Auto) (0.0-0.2) X10*3/uL Abs Immat Gran (auto) (0.00-0.03) X10*3/uL Absolute Neuts (auto) (2.0-8.3) x10*3/uL Absolute Nucleated RBC (0.0-0.012) X10*3/uL Nucleated RBC % (auto) (0.0-0.2) /100WBC Sodium Potassium Chloride Carbon Dioxide Anion Gap 11 L BUN Cancelled 8 L Creatinine Cancelled 0.71 Estim Creat Clear Calc Cancelled Estimated GFR Random Glucose Calcium Total Bilirubin AST ALT Alkaline Phosphatase Total Protein Albumin Urine Color Urine Appearance Urine pH (5.0-9.0) Ur Specific [place] (1.005-1.025) Urine Protein (Neg-Trace) mg/dL Urine Glucose (UA) (Negative) mg/dL Urine Ketones (Negative) mg/dL Urine Blood (Negative) Urine Nitrite (Negative) Ur Leukocyte Esterase (Negative) Urine RBC (0-2) /HPF Urine WBC (0-5) /HPF Ur Squamous Epith Cells (0-2) /HPF Urine Bacteria (None Seen) Hyaline Casts (0-2) /LPF Urine Test (NEGATIVE) Urine Opiates Screen (Not Detect) Ur Buprenorphine Scrn (Not Detect) ng/mL Ur Oxycodone Screen (Not Detect) ng/mL Urine Methadone Screen (Not Detect) ng/mL Urine Fentanyl Screen (Not Detect) Ur Barbiturates Screen (Not Detect) Ur Phencyclidine Scrn (Not Detect) Ur Amphetamines Screen (Not Detect) U Benzodiazepines Scrn (Not Detect) [place] (0.60-1.20) mmol/L Urine Cocaine Screen (Not Detect) U Marijuana (THC) Screen (Not Detect) Ethyl Alcohol mg/dL 12/15/24 12/15/24 12/15/24 Range/Units 22:37 22:37 22:37 WBC (4.8-10.8) X10*3/uL RBC (4.20-5.50) X10*6/uL Hgb (12.0-16.0) g/dl Hct (37.0-47.0) % MCV (80.0-98.0) fL MCH (27.0-33.0) pg MCHC (31.0-35.0) g/dl RDW (11.0-16.0) % Plt Count (160-400) X10*3/uL MPV (9.4-12.3) fL Immature Gran % (Auto) (0.0-0.4) % Neut % (Auto) (45-73) % Lymph % (Auto) (20-40) % [place] % (Auto) (2-11) % Eos % (Auto) (0-4) % Baso % (Auto) (0-2) % Lymph # (Auto) (1.2-4.9) X10*3/uL [place] # (Auto) (0.1-1.2) X10*3/uL Eos # (Auto) (0.0-0.4) X10*3/uL Baso # (Auto) (0.0-0.2) X10*3/uL Abs Immat Gran (auto) (0.00-0.03) X10*3/uL Absolute Neuts (auto) (2.0-8.3) x10*3/uL Absolute Nucleated RBC (0.0-0.012) X10*3/uL Nucleated RBC % (auto) (0.0-0.2) /100WBC Sodium Potassium Chloride Carbon Dioxide Anion Gap BUN Creatinine Estim Creat Clear Calc TNP Estimated GFR Cancelled > 60 Random Glucose Cancelled 110 Calcium Cancelled Total Bilirubin AST ALT Alkaline Phosphatase Total Protein Albumin Urine Color Urine Appearance Urine pH (5.0-9.0) Ur Specific [place] (1.005-1.025) Urine Protein (Neg-Trace) mg/dL Urine Glucose (UA) (Negative) mg/dL Urine Ketones (Negative) mg/dL Urine Blood (Negative) Urine Nitrite (Negative) Ur Leukocyte Esterase (Negative) Urine RBC (0-2) /HPF Urine WBC (0-5) /HPF Ur Squamous Epith Cells (0-2) /HPF Urine Bacteria (None Seen) Hyaline Casts (0-2) /LPF Urine Test (NEGATIVE) Urine Opiates Screen (Not Detect) Ur Buprenorphine Scrn (Not Detect) ng/mL Ur Oxycodone Screen (Not Detect) ng/mL Urine Methadone Screen (Not Detect) ng/mL Urine Fentanyl Screen (Not Detect) Ur Barbiturates Screen (Not Detect) Ur Phencyclidine Scrn (Not Detect) Ur Amphetamines Screen (Not Detect) U Benzodiazepines Scrn (Not Detect) [place] (0.60-1.20) mmol/L Urine Cocaine Screen (Not Detect) U Marijuana (THC) Screen (Not Detect) Ethyl Alcohol mg/dL 12/15/24 12/15/24 12/15/24 Range/Units 22:37 22:37 22:37 WBC (4.8-10.8) X10*3/uL RBC (4.20-5.50) X10*6/uL Hgb (12.0-16.0) g/dl Hct (37.0-47.0) % MCV (80.0-98.0) fL MCH (27.0-33.0) pg MCHC (31.0-35.0) g/dl RDW (11.0-16.0) % Plt Count (160-400) X10*3/uL MPV (9.4-12.3) fL Immature Gran % (Auto) (0.0-0.4) % Neut % (Auto) (45-73) % Lymph % (Auto) (20-40) % [place] % (Auto) (2-11) % Eos % (Auto) (0-4) % Baso % (Auto) (0-2) % Lymph # (Auto) (1.2-4.9) X10*3/uL [place] # (Auto) (0.1-1.2) X10*3/uL Eos # (Auto) (0.0-0.4) X10*3/uL Baso # (Auto) (0.0-0.2) X10*3/uL Abs Immat Gran (auto) (0.00-0.03) X10*3/uL Absolute Neuts (auto) (2.0-8.3) x10*3/uL Absolute Nucleated RBC (0.0-0.012) X10*3/uL Nucleated RBC % (auto) (0.0-0.2) /100WBC Sodium Potassium Chloride Carbon Dioxide Anion Gap BUN Creatinine Estim Creat Clear Calc Estimated GFR Random Glucose Calcium 9.2 Total Bilirubin Cancelled 0.1 AST Cancelled 19 ALT Cancelled Alkaline Phosphatase Total Protein Albumin Urine Color Urine Appearance Urine pH (5.0-9.0) Ur Specific [place] (1.005-1.025) Urine Protein (Neg-Trace) mg/dL Urine Glucose (UA) (Negative) mg/dL Urine Ketones (Negative) mg/dL Urine Blood (Negative) Urine Nitrite (Negative) Ur Leukocyte Esterase (Negative) Urine RBC (0-2) /HPF Urine WBC (0-5) /HPF Ur Squamous Epith Cells (0-2) /HPF Urine Bacteria (None Seen) Hyaline Casts (0-2) /LPF Urine Test (NEGATIVE) Urine Opiates Screen (Not Detect) Ur Buprenorphine Scrn (Not Detect) ng/mL Ur Oxycodone Screen (Not Detect) ng/mL Urine Methadone Screen (Not Detect) ng/mL Urine Fentanyl Screen (Not Detect) Ur Barbiturates Screen (Not Detect) Ur Phencyclidine Scrn (Not Detect) Ur Amphetamines Screen (Not Detect) U Benzodiazepines Scrn (Not Detect) [place] (0.60-1.20) mmol/L Urine Cocaine Screen (Not Detect) U Marijuana (THC) Screen (Not Detect) Ethyl Alcohol mg/dL 12/15/24 12/15/24 12/15/24 Range/Units 22:37 22:37 22:37 WBC (4.8-10.8) X10*3/uL RBC (4.20-5.50) X10*6/uL Hgb (12.0-16.0) g/dl Hct (37.0-47.0) % MCV (80.0-98.0) fL MCH (27.0-33.0) pg MCHC (31.0-35.0) g/dl RDW (11.0-16.0) % Plt Count (160-400) X10*3/uL MPV (9.4-12.3) fL Immature Gran % (Auto) (0.0-0.4) % Neut % (Auto) (45-73) % Lymph % (Auto) (20-40) % [place] % (Auto) (2-11) % Eos % (Auto) (0-4) % Baso % (Auto) (0-2) % Lymph # (Auto) (1.2-4.9) X10*3/uL [place] # (Auto) (0.1-1.2) X10*3/uL Eos # (Auto) (0.0-0.4) X10*3/uL Baso # (Auto) (0.0-0.2) X10*3/uL Abs Immat Gran (auto) (0.00-0.03) X10*3/uL Absolute Neuts (auto) (2.0-8.3) x10*3/uL Absolute Nucleated RBC (0.0-0.012) X10*3/uL Nucleated RBC % (auto) (0.0-0.2) /100WBC Sodium Potassium Chloride Carbon Dioxide Anion Gap BUN Creatinine Estim Creat Clear Calc Estimated GFR Random Glucose Calcium Total Bilirubin AST ALT 9 Alkaline Phosphatase Cancelled 51 Total Protein Cancelled 6.4 L Albumin Cancelled Urine Color Urine Appearance Urine pH (5.0-9.0) Ur Specific [place] (1.005-1.025) Urine Protein (Neg-Trace) mg/dL Urine Glucose (UA) (Negative) mg/dL Urine Ketones (Negative) mg/dL Urine Blood (Negative) Urine Nitrite (Negative) Ur Leukocyte Esterase (Negative) Urine RBC (0-2) /HPF Urine WBC (0-5) /HPF Ur Squamous Epith Cells (0-2) /HPF Urine Bacteria (None Seen) Hyaline Casts (0-2) /LPF Urine Test (NEGATIVE) Urine Opiates Screen (Not Detect) Ur Buprenorphine Scrn (Not Detect) ng/mL Ur Oxycodone Screen (Not Detect) ng/mL Urine Methadone Screen (Not Detect) ng/mL Urine Fentanyl Screen (Not Detect) Ur Barbiturates Screen (Not Detect) Ur Phencyclidine Scrn (Not Detect) Ur Amphetamines Screen (Not Detect) U Benzodiazepines Scrn (Not Detect) [place] (0.60-1.20) mmol/L Urine Cocaine Screen (Not Detect) U Marijuana (THC) Screen (Not Detect) Ethyl Alcohol mg/dL 12/15/24 Range/Units 22:37 WBC (4.8-10.8) X10*3/uL RBC (4.20-5.50) X10*6/uL Hgb (12.0-16.0) g/dl Hct (37.0-47.0) % MCV (80.0-98.0) fL MCH (27.0-33.0) pg MCHC (31.0-35.0) g/dl RDW (11.0-16.0) % Plt Count (160-400) X10*3/uL MPV (9.4-12.3) fL Immature Gran % (Auto) (0.0-0.4) % Neut % (Auto) (45-73) % Lymph % (Auto) (20-40) % [place] % (Auto) (2-11) % Eos % (Auto) (0-4) % Baso % (Auto) (0-2) % Lymph # (Auto) (1.2-4.9) X10*3/uL [place] # (Auto) (0.1-1.2) X10*3/uL Eos # (Auto) (0.0-0.4) X10*3/uL Baso # (Auto) (0.0-0.2) X10*3/uL Abs Immat Gran (auto) (0.00-0.03) X10*3/uL Absolute Neuts (auto) (2.0-8.3) x10*3/uL Absolute Nucleated RBC (0.0-0.012) X10*3/uL Nucleated RBC % (auto) (0.0-0.2) /100WBC Sodium Potassium Chloride Carbon Dioxide Anion Gap BUN Creatinine Estim Creat Clear Calc Estimated GFR Random Glucose Calcium Total Bilirubin AST ALT Alkaline Phosphatase Total Protein Albumin 3.7 Urine Color Urine Appearance Urine pH (5.0-9.0) Ur Specific [place] (1.005-1.025) Urine Protein (Neg-Trace) mg/dL Urine Glucose (UA) (Negative) mg/dL Urine Ketones (Negative) mg/dL Urine Blood (Negative) Urine Nitrite (Negative) Ur Leukocyte Esterase (Negative) Urine RBC (0-2) /HPF Urine WBC (0-5) /HPF Ur Squamous Epith Cells (0-2) /HPF Urine Bacteria (None Seen) Hyaline Casts (0-2) /LPF Urine Test (NEGATIVE) Urine Opiates Screen (Not Detect) Ur Buprenorphine Scrn (Not Detect) ng/mL Ur Oxycodone Screen (Not Detect) ng/mL Urine Methadone Screen (Not Detect) ng/mL Urine Fentanyl Screen (Not Detect) Ur Barbiturates Screen (Not Detect) Ur Phencyclidine Scrn (Not Detect) Ur Amphetamines Screen (Not Detect) U Benzodiazepines Scrn (Not Detect) [place] 1.05 (0.60-1.20) mmol/L Urine Cocaine Screen (Not Detect) U Marijuana (THC) Screen (Not Detect) Ethyl Alcohol 10 mg/dL Critical Care Time Critical Care Time Critical Care Time: Yes Total Critical Care Time: 35 Attestation: I have personally provided critical care time. Time includes review of lab data, radiology results, discussion with consultants, and monitoring for potential decompensation. Intervention performed as documented. Discharge Plan Discharge Clinical Impression: Suicidal ideation Prescriptions: No Action clonidine HCl 0.1 mg tablet 0.1 mg PO TID Rx Instructions: takes at 0800, 1400 and 2000 benztropine 0.5 mg tablet 0.5 mg PO BID prazosin 5 mg capsule 15 mg PO BEDTIME trazodone 100 mg tablet 200 mg PO BEDTIME omeprazole 20 mg capsule,delayed release(DR/EC) 20 mg PO Q OTHER DAY cholecalciferol (vitamin D3) [Vitamin D3] 25 mcg (1,000 unit) tablet 25 mcg PO DAILY haloperidol 5 mg tablet 5 mg PO TID prazosin 1 mg capsule 1 mg PO BEDTIME haloperidol decanoate 100 mg/mL solution 75 mg IM Q28D albuterol sulfate 90 mcg/actuation HFA aerosol inhaler 2 puff inhalation Q4-6H PRN (Reason: shortness of breath or wheezing) Qty: 6.7 0RF hydroxyzine HCl 50 mg Tablet 50 mg PO Q6H PRN (Reason: mild anxiety) 30 Days Qty: 90 0RF duloxetine 60 mg capsule,delayed release(DR/EC) 60 mg PO DAILY 30 Days Qty: 30 0RF Rx Instructions: take with 30mg capsule diphenhydramine HCl [Banophen] 50 mg capsule 100 mg PO BEDTIME Incruse Ellipta 62.5 mcg/actuation blister with device 1 inh INHALATION DAILY zolpidem 10 mg tablet 10 mg PO BEDTIME multivitamin Tablet 1 tab PO DAILY lorazepam 1 mg Tablet 1 mg PO TID PRN (Reason: anxiety/agitation) Qty: 0 0RF lithium carbonate 450 mg Tablet Extended Release 900 mg PO BEDTIME 30 Days Qty: 60 0RF fluticasone propion-salmeterol [Advair HFA] 230-21 mcg/actuation HFA aerosol inhaler 2 puff INHALATION BID calcium carbonate-vitamin D3 600 mg-10 mcg (400 unit) tablet 1 tab PO BID cetirizine 10 mg tablet 10 mg PO DAILY duloxetine 30 mg capsule,delayed release(DR/EC) 30 mg PO DAILY Interventions: [facility]-Suicide Risk Severity Scale Last Done: 12/15/24 22:31 Print Language: Spanish
[2024-12-16 06:23] VITALS: BP 109/61; PULSE 76; RESP 20; TEMP 36.6; O2SAT 97
--- NOTE | 2024-12-16 08:00 | PC.NURSE ---
Assumed care of patient at 0645, patient appears to be in no apparent distress this am, sleeping, respirations even and unlabored. Continue plan of care for care team ar
[2024-12-16 10:52] VITALS: BP 132/74; PULSE 84; RESP 16; TEMP 36.7; O2SAT 99
== END 2024-12-16 10:57 | disposition home or self-care (01) ==
PROVIDERS: Nurse Practitioner Family; Emergency Provider Emergency Medicine; PCP Nurse Practitioner Family
DX: R45.851 Suicidal ideations (principal); Z79.899 Other long term (current) drug therapy
CPT/HCPCS: 36415; 80053; 80178; 80307; 81001; 81003; 81025; 85025; 99284; S9485

== ENCOUNTER 2024-12-26 19:02 | Inpatient (IN) | payer OTHER, SELFPAY ==
--- NOTE | 2024-12-26 19:21 | ED.PSYCH ---
HPI - Psych General Chief Complaint: Psychiatric Symptoms Stated Complaint: si, sect 12 Time Seen by Provider: 12/26/24 19:10 Source: patient and EMS Mode of arrival: EMS Limitations: no limitations History of Present Illness ED Provider: Dr. Rosi Barcenas HPI Narrative: Patient comes to the emergency room via ambulance from her intermediate. Patient states that she has been having flashbacks, feeling anxious, vague suicidal ideation. Patient states that she did not hurt herself in any way including cutting or ingesting any medications. Patient states that the anniversary of her sister's murder trial is approaching and she is having PTSD/flashbacks. Patient denies HI. Related Data Home Medications ?Medication ?Instructions ?Recorded ?Confirmed benztropine 0.5 mg tablet 0.5 mg PO BID 04/30/24 12/27/24 clonidine HCl 0.1 mg tablet 0.1 mg PO TID 04/30/24 12/27/24 omeprazole 20 mg capsule,delayed 20 mg PO Q OTHER DAY 04/30/24 12/27/24 release prazosin 5 mg capsule 15 mg PO BEDTIME 04/30/24 12/27/24 trazodone 100 mg tablet 200 mg PO BEDTIME insomnia 04/30/24 12/27/24 multivitamin 1 tab PO DAILY 05/17/24 12/27/24 zolpidem 10 mg tablet 10 mg PO BEDTIME insomnia 05/17/24 12/27/24 cholecalciferol (vitamin D3) 25 25 mcg PO DAILY 07/29/24 12/27/24 mcg (1,000 unit) tablet (Vitamin D3) haloperidol 5 mg tablet 5 mg PO TID 08/15/24 12/27/24 haloperidol decanoate 100 mg/mL 75 mg IM Q28D 08/15/24 12/27/24 intramuscular solution prazosin 1 mg capsule 1 mg PO BEDTIME 08/15/24 12/27/24 calcium 600 mg (as 1 tab PO BID 11/02/24 12/27/24 carbonate)-vitamin D3 10 mcg (400 unit) tablet fluticasone propionate 230 2 puff inhalation BID 11/02/24 12/27/24 mcg-salmeterol 21 mcg/actuation HFA inhaler (Advair HFA) cetirizine 10 mg tablet 10 mg PO DAILY 11/06/24 12/27/24 duloxetine 30 mg capsule,delayed 30 mg PO DAILY 11/06/24 12/27/24 release diphenhydramine HCl 50 mg capsule 100 mg PO BEDTIME insomnia 12/03/24 12/27/24 (Banophen) umeclidinium 62.5 mcg/actuation 1 inh inhalation DAILY 12/03/24 12/27/24 blister powder for inhalation (Incruse Ellipta) Previous Rx's ?Medication ?Instructions ?Recorded lorazepam 1 mg tablet 1 mg PO TID PRN anxiety/agitation 05/22/24 #0 tabs albuterol sulfate 90 mcg/actuation 2 puff inhalation Q4-6H PRN 08/30/24 aerosol inhaler shortness of breath or wheezing #6.7 grams duloxetine 60 mg capsule,delayed 60 mg PO DAILY 30 days #30 caps 10/03/24 release hydroxyzine HCl 50 mg tablet 50 mg PO Q6H PRN mild anxiety 30 10/03/24 days #90 tabs lithium carbonate 450 mg 900 mg (2 x 450 mg) PO BEDTIME 10/17/24 tablet,extended release days #60 tabs Allergies Allergy/AdvReac Type Severity Reaction Status Date / Time carbamazepine [From TEGRETOL] AdvReac Mild Nausea and Verified 12/26/24 19:43 Vomiting topiramate [From Topamax] AdvReac Mild Nausea and Verified 12/26/24 19:43 Vomiting Review of Systems Review of Systems: Constitutional : No Weight loss, No Fever, No Chills, No Night Sweats, No Fatigue, No Malaise ENT/Mouth : No Hearing loss, No Ear Pain, No Nasal Congestion, No Sinus Pain, No Hoarseness, No sore throat, No Rhinorrhea, No Swallowing Difficulty Eyes: No Eye Pain, No Swelling, No Redness, No Foreign Body, No Discharge, No Vision Changes Cardiovascular : No Chest Pain, No SOB, No Dyspnea on Exertion, No Orthopnea, No Edema, No Palpitations Respiratory : No Cough, No Sputum, No Wheezing, No Smoke Exposure, No Dyspnea Gastrointestinal : No Nausea, No Vomiting, No Diarrhea, No Constipation, No abdominal Pain, No Hematochezia, No Melena Genitourinary : no irregular bleeding, No Dysuria, No Urinary Frequency, No Hematuria, No Urinary Incontinence, No Urgency, No Flank Pain, No Urinary Flow Changes, No Hesitancy Musculoskeletal : No joint pain, No Myalgias, No Joint Swelling Skin : No Skin Lesions, No rash Neuro : No Weakness, No Numbness, No Paresthesias, No Loss of Consciousness, No Dizziness, No Headache Psych : Complaining of anxiety, depression, flashbacks/PTSD, vague SI, no HI Heme/Lymph: No Bruising, No Bleeding,No Lymphadenopathy Endocrine : No Polyuria, No Polydipsia, No Temperature Intolerance PMFSH Past Medical History Medical History Depression Schizoaffective disorder, depressive type Depression with suicidal ideation MDD (major depressive disorder), recurrent, severe, with psychosis Port-A-Cath in place History of electroconvulsive therapy COVID-19 COVID-19 Sprain of left foot Chronic post-traumatic stress disorder (PTSD) COPD (chronic obstructive pulmonary disease) Increased BMI GERD (gastroesophageal reflux disease) Recurrent major depression-severe Acute post-traumatic stress disorder Injury, self-inflicted Suicidal ideation Self-harming behavior Intentional self-harm Suicidal ideation Borderline personality disorder Schizoaffective disorder Adjustment disorder Asthma Depression Anxiety PTSD (post-traumatic stress disorder) Family History Family History Mother Brain cancer Other No family history of cardiac disease Social History Social History Household Members: Other Household Members Other:: group housemates Housing: Other Housing Other:: [facility] intermediate Do you presently have visiting nurse or other home services: No Unable to assess alcohol history related to: Unable to respond Alcohol intake: current Alcohol intake frequency: does not drink Patient Tobacco Use Status: Current someday Tobacco user Tobacco use type: Cigarette Cigarette Packs Per Day: 0.5 Cigarettes Per Day: 8 Years Smoked: 20 Smoked in Last 30 Days: Yes e-Cigarette/Vaping Use: Never Used Second Hand Smoke Exposure: No Use of substances other than those prescribed or required for medical reasons: No Substance Use Type: Marijuana Currently Displaying Signs/Symptoms of Drug Intoxication Withdrawal: No Advance Directives: No Advance Directives Information Provided: No Do you have thoughts of harming others: None Do you have a plan to hurt others: No Plan Patient : No service: No Current occupation: rt handed Sexual orientation: Straight/Heterosexual Physical Exam Vital Signs: Vital Signs: Last Vital Signs Temp 98.2 F 12/26/24 19:32 Pulse 73 12/26/24 19:32 Resp 16 12/27/24 14:33 BP 106/57 L 12/26/24 19:32 Pulse Ox 98 12/26/24 19:32 O2 Del Method Room Air 12/26/24 19:32 BMI result Body Mass Index 34.3 Const: Other: Appearance: Alert. Oriented X3. No acute distress. Eyes: Pupils equal, round and reactive to light. ENT: Pharynx normal. Neck: Normal inspection. Neck supple. No lymph nodes noted. No crepitus CVS: Normal heart rate and rhythm. Pulses normal. Normal S1 and S2 Respiratory: No respiratory distress. Breath sounds normal. No Wheezing. No rales Abdomen: Soft and nontender. No rigidity. No distention. Skin: Skin warm and dry. Normal skin color. Normal skin turgor. Extremities: No lower extremity edema. No Lacerations. No Rash Neuro: Oriented X 3. No motor deficit. No sensory deficit. Moving all extremities. No slurred speech. CN 2 through 12 grossly intact Psych: calm, cooperative, normal affect Course Course Course Narrative: all of patient's labs pending care team consult pending physician observation started at 19:29 Reevaluation(s) Reevaluation #1: Time: 08:13 Date: 12/27/24 Provider: Jose Guadalupe Ramírez MD Patient in physician observation for psychiatric evaluation.? No acute events reported overnight. No current complaints. VS stable.? Patient is in bed search status/pending CARE team evaluation. Will continue to monitor. Reevaluation #2: Time: 20:27 Date: 12/27/24 Provider: Shoaib Lyman MD Patient in physician observation for psychiatric evaluation.? No acute events during the afternoon. The patient was admitted to our inpatient psychiatric unit. No incidents. Physician observation ended at 19:34.. Medications Administered Generic Name Dose Route Start Last Admin Trade Name Freq PRN Reason Stop Dose Admin Benztropine Mesylate 0.5 mg 12/27/24 11:30 12/27/24 11:34 Benztropine Mesylate 0.5 Mg Tablet PO 0.5 mg BID SULEIMAN Administration Clonidine HCl 0.1 mg 12/27/24 15:00 12/27/24 16:05 Clonidine Hcl 0.1 Mg Tablet PO Not Given TID SULEIMAN Protocol Haloperidol 5 mg 12/27/24 15:00 12/27/24 16:05 Haloperidol 5 Mg Tablet PO Not Given TID SULEIMAN Hydroxyzine HCl 50 mg 12/27/24 11:15 12/27/24 11:34 Hydroxyzine Hcl 50 Mg Tablet PO 50 mg Q6H PRN Administration mild anxiety Loratadine 10 mg 12/27/24 11:30 12/27/24 11:34 Loratadine 10 Mg Tablet PO 10 mg DAILY SULEIMAN Administration Lorazepam 1 mg 12/27/24 11:15 12/27/24 19:40 Lorazepam 1 Mg Tablet PO 1 mg TID PRN Administration anxiety/agitation Discontinued Medications Generic Name Dose Route Start Last Admin Trade Name Freq PRN Reason Stop Dose Admin Lorazepam 2 mg 12/26/24 19:45 12/26/24 20:10 Lorazepam 1 Mg Tablet PO 12/26/24 19:46 2 mg ONCE ONE Administration Lorazepam 2 mg 12/27/24 11:19 12/27/24 11:34 Lorazepam 1 Mg Tablet PO 12/27/24 11:20 2 mg ONCE ONE Administration Olanzapine 5 mg 12/26/24 19:45 12/26/24 20:10 Olanzapine 5 Mg Tablet PO 12/26/24 19:46 5 mg ONCE ONE Administration Medical Decision Making Differential Diagnosis Differential Diagnoses: The differential diagnosis associated with the presentation includes ( anxiety, depression, PTSD) Admission/Observation Consideration of admission/observation: Escalation of care including admission/observation considered ( patient is under physician observation waiting to be seen by the care team) Lab Data 12/26/24 20:05 12/26/24 20:05 Labs: Lab Results 12/26/24 12/26/24 Range/Units 20:05 20:29 WBC 8.4 (4.8-10.8) X10*3/uL RBC 3.77 L (4.20-5.50) X10*6/uL Hgb 11.2 L (12.0-16.0) g/dl Hct 33.7 L (37.0-47.0) % MCV 89.4 (80.0-98.0) fL MCH 29.7 (27.0-33.0) pg MCHC 33.2 (31.0-35.0) g/dl RDW 13.4 (11.0-16.0) % Plt Count 243 (160-400) X10*3/uL MPV 11.0 (9.4-12.3) fL Immature Gran % (Auto) 0.1 (0.0-0.4) % Neut % (Auto) 70.1 (45-73) % Lymph % (Auto) 21.1 (20-40) % [place] % (Auto) 6.6 (2-11) % Eos % (Auto) 1.7 (0-4) % Baso % (Auto) 0.4 (0-2) % Lymph # (Auto) 1.8 (1.2-4.9) X10*3/uL [place] # (Auto) 0.6 (0.1-1.2) X10*3/uL Eos # (Auto) 0.1 (0.0-0.4) X10*3/uL Baso # (Auto) 0.0 (0.0-0.2) X10*3/uL Abs Immat Gran (auto) 0.01 (0.00-0.03) X10*3/uL Absolute Neuts (auto) 5.9 (2.0-8.3) x10*3/uL Absolute Nucleated RBC 0.000 (0.0-0.012) X10*3/uL Nucleated RBC % (auto) 0.0 (0.0-0.2) /100WBC Sodium 137 (135-145) mmol/L Potassium 3.7 (3.3-5.1) mmol/L Chloride 104 (96-108) mmol/L Carbon Dioxide 24 (22-29) mmol/L Anion Gap 13 (12-20) BUN 7 L (9-16) mg/dL Creatinine 0.76 (0.5-1.4) mg/dL Estim Creat Clear Calc 109.5 Estimated GFR > 60 Random Glucose 97 (60-115) mg/dL Calcium 8.9 (8.4-10.2) mg/dL Total Bilirubin 0.1 (0.0-1.0) mg/dL Direct Bilirubin < 0.2 (0.0-0.5) mg/dL AST 16 (5-31) U/L ALT 14 (0-31) U/L Alkaline Phosphatase 53 (39-117) U/L Total Protein 6.4 L (6.5-8.0) g/dL Albumin 3.8 (3.5-5.0) g/dL Beta HCG, Quant < 2 mIU/mL Urine Color Yellow Urine Appearance Clear Urine pH 6.0 (5.0-9.0) Ur Specific [place] <= 1.005 (1.005-1.025) Urine Protein Negative (Neg-Trace) mg/dL Urine Glucose (UA) Negative (Negative) mg/dL Urine Ketones Negative (Negative) mg/dL Urine Blood Negative (Negative) Urine Nitrite Negative (Negative) Ur Leukocyte Esterase Negative (Negative) Salicylates < 5.0 L (15-30) mg/dL Urine Opiates Screen Not Detected (Not Detect) Ur Buprenorphine Scrn Not Detected (Not Detect) ng/mL Ur Oxycodone Screen Not Detected (Not Detect) ng/mL Urine Methadone Screen Not Detected (Not Detect) ng/mL Urine Fentanyl Screen Not Detected (Not Detect) Acetaminophen < 3 (<30) mcg/mL Ur Barbiturates Screen Not Detected (Not Detect) Ur Phencyclidine Scrn Not Detected (Not Detect) Ur Amphetamines Screen Not Detected (Not Detect) U Benzodiazepines Scrn Not Detected (Not Detect) Urine Cocaine Screen Not Detected (Not Detect) U Marijuana (THC) Screen POSITIVE H (Not Detect) Ethyl Alcohol < 10 mg/dL Critical Care Time Critical Care Time Critical Care Time: Yes Total Critical Care Time: 35 Attestation: I have personally provided critical care time. Time includes review of lab data, radiology results, discussion with consultants, and monitoring for potential decompensation. Intervention performed as documented. Discharge Plan Discharge Clinical Impression: Chronic post-traumatic stress disorder (PTSD)
[2024-12-26 19:32] VITALS: BP 106/57; BP 135/93; PULSE 73; PULSE 75; RESP 17; TEMP 36.8; O2SAT 98; BMI 34.3
[2024-12-26] MEDS: LORazepam 1 MG TABLET 2 MG PO (20:10)
[2024-12-26] MEDS: OLANZapine 5 MG TABLET PO (20:10)
[2024-12-26 20:11] LABS: MANUAL DIFF FLAG NO
[2024-12-26 20:14] LABS: Basophils Percent Auto 0.4 % (0-2); Eosinophils Absolute Auto 0.1 X10*3/uL (0.0-0.4); Eosinophils Percent Auto 1.7 % (0-4); Hematocrit 33.7 % (37.0-47.0); Hemoglobin 11.2 g/dl (12.0-16.0); Imm Gran Abs Auto 0.01 X10*3/uL (0.00-0.03); Imm Gran Pct Auto 0.1 % (0.0-0.4); Lymphocytes Absolute Auto 1.8 X10*3/uL (1.2-4.9); Lymphocytes Percent Auto 21.1 % (20-40); Mean Corpuscular HGB Conc 33.2 g/dl (31.0-35.0); Mean Corpuscular Hemoglobin 29.7 pg (27.0-33.0); Mean Corpuscular Volume 89.4 fL (80.0-98.0); Monocytes Absolute Auto 0.6 X10*3/uL (0.1-1.2); Monocytes Percent Auto 6.6 % (2-11); Neutrophils Absolute Auto 5.9 x10*3/uL (2.0-8.3); Neutrophils Percent Auto 70.1 % (45-73); Platelet Count 243 X10*3/uL (160-400); Red Blood Count 3.77 X10*6/uL (4.20-5.50); Red Cell Distribution Width 13.4 % (11.0-16.0); White Blood Count 8.4 X10*3/uL (4.8-10.8)
--- NOTE | 2024-12-26 20:29 | MHC.CARE ---
[facility] contacted the care team and indicated that pt will be an expect and they are recommending [facility]. N will send eval when completed.
[2024-12-26 20:36] LABS: Acetaminophen LAB < 3 mcg/mL (<30); Salicylate < 5.0 mg/dL (15-30)
[2024-12-26 20:38] LABS: Alanine Aminotransferase 14 U/L (0-31); Albumin Level 3.8 g/dL (3.5-5.0); Alkaline Phosphatase 53 U/L (39-117); Anion Gap 13 (12-20); Aspartate Amino Transferase 16 U/L (5-31); Bilirubin Direct < 0.2 mg/dL (0.0-0.5); Bilirubin Total 0.1 mg/dL (0.0-1.0); Blood Urea Nitrogen 7 mg/dL (9-16); Calcium 8.9 mg/dL (8.4-10.2); Carbon Dioxide 24 mmol/L (22-29); Chloride 104 mmol/L (96-108); Creatinine Clr Calc Pharmacy 109.5; Estimated Glomerular Filt Rate > 60; Ethanol < 10 mg/dL; Glucose Random 97 mg/dL (60-115); HCG Quantitative < 2 mIU/mL; Potassium 3.7 mmol/L (3.3-5.1); Sodium 137 mmol/L (135-145); Total Protein 6.4 g/dL (6.5-8.0)
[2024-12-26 20:49] LABS: Appearance Urine Clear; Color Urine Yellow; Glucose Urine UA Negative (Negative); Leukocyte Esterase Urine Negative (Negative); Nitrite Urine Negative (Negative); Specific Gravity - Urine <= 1.005 (1.005-1.025); Urine Blood Negative (Negative); Urine Ketones Negative (Negative); Urine Protein Negative (Neg-Trace)
[2024-12-26 22:33] LABS: Amphetamine Screen Urine Not Detected (Not Detect); Barbiturates, Urine Not Detected (Not Detect); Benzodiazepines Screen Urine Not Detected (Not Detect); Buprenorphine Scr Not Detected (Not Detect); Cannabinoid Screen Urine POSITIVE (Not Detect); Cocaine Screen Urine Not Detected (Not Detect); Fentanyl, urine Not Detected (Not Detect); Methadone Screen, Urine Not Detected (Not Detect); Opiate Screen Urine Not Detected (Not Detect); Oxycodone Screen Urine Not Detected (Not Detect); Phencyclidine Screen Urine Not Detected (Not Detect)
--- NOTE | 2024-12-26 23:43 | PC.NURSE ---
asked assistance from clin coordinator for help in obtaining med list for client
--- NOTE | 2024-12-27 | ECG_ITS ---
Test Reason : RULE OUT PROLONGED QTC Blood Pressure : */* mmHG Vent. Rate : 71 BPM Atrial Rate : 71 BPM P-R Int : 156 ms QRS Dur : 68 ms QT Int : 388 ms P-R-T Axes : 75 90 58 degrees QTcB Int : 421 ms Normal sinus rhythm Rightward axis Nonspecific T wave abnormality Abnormal ECG When compared with ECG of 06-Oct-2024 14:08, Nonspecific T wave abnormality, worse in Inferior leads Referred By: Isael Norris Electronically Signed By: DONAL HAAS MD
--- NOTE | 2024-12-27 01:38 | PC.NURSE ---
clin coordinator attempted to assist t/w in verifying med list after 3 x calling no answer at [facility].
[2024-12-27 06:08] VITALS: RESP 16
--- NOTE | 2024-12-27 10:42 | PHA.MEDREC ---
Pharmacy Consult ? Medication Reconciliation Pharmacy has completed the medication reconciliation. Pt was just here ~ 1 month ago, discharge packet and claims used to verify medications.
[2024-12-27] MEDS: LORazepam 1 MG TABLET 2 MG PO (11:34)
[2024-12-27] MEDS: Loratadine 10 MG TABLET PO (11:34)
[2024-12-27] MEDS: Benztropine Mesylate 0.5 MG TABLET PO ×2 (11:34→20:35)
[2024-12-27] MEDS: hydrOXYzine HCL 50 MG TABLET PO (11:34)
--- NOTE | 2024-12-27 12:35 | PC.NURSE ---
pt awoke at 1030 and asked for a 1-1 female staff as she was feeling unsafe, female staff assigned to pt and prn med and some of her morning meds. pt briefly was hitting her head against the wall did stop when asked not to. spoke with CARE team Ermias and now laying in bed
[2024-12-27 14:33] VITALS: RESP 16
--- NOTE | 2024-12-27 15:57 | PC.NURSE ---
Patient appears to be sleeping, respirations even and unlabored, no apparent distress. Continue plan of care for CARE team follow up
--- NOTE | 2024-12-27 16:05 | PC.NURSE ---
3pm medications held due to patient heavily sleeping and medications due have further sedating effect
[2024-12-27] MEDS: LORazepam 1 MG TABLET PO (19:40)
[2024-12-27 20:00] VITALS: BP 117/62; PULSE 84; RESP 16; TEMP 36.8; O2SAT 98
[2024-12-27] MEDS: diphenhydrAMINE HCL 25 MG CAPSULE 100 MG PO (20:34)
[2024-12-27] MEDS: traZODone HCL 100 MG TABLET 200 MG PO (20:35)
[2024-12-27] MEDS: Calcium + Vitamin D 250 MG TABLET 500 MG PO (20:35)
[2024-12-27] MEDS: Prazosin HCL 1 MG CAPSULE PO (20:35)
[2024-12-27] MEDS: Lithium Carbonate ER 450 MG TABLET.ER 900 MG PO (20:35)
[2024-12-27] MEDS: cloNIDine HCL 0.1 MG TABLET PO (20:35)
[2024-12-27] MEDS: Prazosin HCL 5 MG CAPSULE 15 MG PO (20:35)
[2024-12-27] MEDS: HaloperidoL 5 MG TABLET PO (20:35)
[2024-12-27] MEDS: Zolpidem Tartrate 5 MG TABLET PO (20:35)
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
[2024-12-28] MEDS: Omeprazole 20 MG CAPSULE.DR PO (06:11)
[2024-12-28 07:00] VITALS: BMI 34.3
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
[2024-12-28] MEDS: Loratadine 10 MG TABLET PO (09:17)
[2024-12-28] MEDS: DULoxetine HCl 60 MG CAPSULE.DR PO (09:17)
[2024-12-28] MEDS: Cholecalciferol (Vitamin D3) 25 MCG TABLET PO (09:17)
[2024-12-28] MEDS: Benztropine Mesylate 0.5 MG TABLET PO ×2 (09:18→20:52)
[2024-12-28] MEDS: DULoxetine HCl 30 MG CAPSULE.DR PO (09:18)
[2024-12-28] MEDS: HaloperidoL 5 MG TABLET PO ×3 (09:18→20:53)
[2024-12-28] MEDS: Calcium + Vitamin D 250 MG TABLET 500 MG PO ×2 (09:18→20:53)
[2024-12-28] MEDS: Multivitamin TABLET 1 TAB PO (09:19)
[2024-12-28 09:20] VITALS: BP 108/68
[2024-12-28] MEDS: cloNIDine HCL 0.1 MG TABLET PO ×3 (09:20→20:52)
[2024-12-28] MEDS: Fluticasone/Vilanterol 200/25 BLST.W.DEV 1 PUFF INHALE (09:20)
[2024-12-28 09:34] VITALS: BP 108/68; PULSE 60; RESP 18; TEMP 36.4; O2SAT 95
[2024-12-28] MEDS: LORazepam 1 MG TABLET PO ×3 (12:45→23:59)
[2024-12-28 16:59] VITALS: BP 103/63
[2024-12-28] MEDS: hydrOXYzine HCL 50 MG TABLET PO ×2 (17:26→23:59)
[2024-12-28 20:40] VITALS: BP 92/56; PULSE 66; RESP 18; TEMP 36.4; O2SAT 95
[2024-12-28 20:52] VITALS: BP 104/61
[2024-12-28] MEDS: diphenhydrAMINE HCL 25 MG CAPSULE 100 MG PO (20:52)
[2024-12-28] MEDS: Prazosin HCL 1 MG CAPSULE PO (20:52)
[2024-12-28] MEDS: Prazosin HCL 5 MG CAPSULE 15 MG PO (20:52)
[2024-12-28] MEDS: Zolpidem Tartrate 5 MG TABLET PO (20:52)
[2024-12-28] MEDS: traZODone HCL 100 MG TABLET 200 MG PO (20:52)
[2024-12-28] MEDS: Lithium Carbonate ER 450 MG TABLET.ER 900 MG PO (20:53)
[2024-12-29 07:43] VITALS: BP 111/67; PULSE 73; RESP 16; TEMP 36.5; O2SAT 97
--- NOTE | 2024-12-29 08:33 | HO.PSYCHPN ---
Subjective Subjective Date of Service: 12/29/24 Reason For Visit: si, sect 12 Subjective Notes: Conditional Voluntary Interim History: 1:1 safety checks. She continues to report feeling depressed and having suicidal ideation with no plan. Pt reports she will try to attend groups today. +AH; pt stated she is trying to block them out . denies HI/VH. Continue current tx plan. Medication Compliance: Yes Side effects from medications: No Attending Groups: No Mental Status Exam Mental Status Exam Narrative: Pt is alert and oriented; behavior is cooperative and calm; dressed in casual attire with unkempt hair; mood is described as depressed ; eye contact appropriate; Speech is normal rate, volume and not pressured; thought process is organized; Thought content is on tx; denies HI/VH. Patient reports suicidal ideation with no plan.+ auditory hallucinations Diagnostics Vital Signs (24Hr): Vital Signs - 24 hr 12/28/24 09:20 12/28/24 09:34 12/28/24 16:59 Temperature 97.5 F Pulse Rate 60 Respiratory Rate 18 Blood Pressure 108/68 108/68 103/63 Pulse Oximetry 95 Oxygen Delivery Method Room Air 12/28/24 20:40 12/28/24 20:52 12/28/24 20:52 Temperature 97.5 F Pulse Rate 66 Respiratory Rate 18 Blood Pressure 92/56 L 104/61 104/61 Pulse Oximetry 95 Oxygen Delivery Method Room Air 12/28/24 20:52 12/29/24 07:43 Temperature 97.7 F Pulse Rate 73 Respiratory Rate 16 Blood Pressure 104/61 111/67 Pulse Oximetry 97 Oxygen Delivery Method Room Air BMI result Body Mass Index 34.3 Labs 12/26/24 20:05 12/26/24 20:05 Medications Medications Current Medications Acetaminophen (Acetaminophen 325 Mg Tablet) 650 mg PO Q6H PRN PRN Reason: Headache/Pain, Scale 1-10 Albuterol Sulfate (Albuterol Sulfate 90 Mcg 8 Gm Inhaler) 2 puff INHALE RQ4H PRN PRN Reason: shortness of breath or wheezing Benztropine Mesylate (Benztropine Mesylate 0.5 Mg Tablet) 0.5 mg PO BID [facility] Last Admin: 12/28/24 20:52 Dose: 0.5 mg Calcium Carbonate/Cholecalciferol (Calcium + Vitamin D 250 Mg Tablet) 500 mg PO BID [facility] Last Admin: 12/28/24 20:53 Dose: 500 mg Clonidine HCl (Clonidine Hcl 0.1 Mg Tablet) 0.1 mg PO TID [facility]; Protocol Last Admin: 12/28/24 20:52 Dose: 0.1 mg Diphenhydramine HCl (Diphenhydramine Hcl 25 Mg Capsule) 100 mg PO BEDTIME [facility] Last Admin: 12/28/24 20:52 Dose: 100 mg Duloxetine HCl (Duloxetine Hcl 30 Mg Capsule.Dr) 30 mg PO DAILY [facility] Last Admin: 12/28/24 09:18 Dose: 30 mg Duloxetine HCl (Duloxetine Hcl 60 Mg Capsule.Dr) 60 mg PO DAILY [facility] Last Admin: 12/28/24 09:17 Dose: 60 mg Fluticasone/Vilanterol (Fluticasone/Vilanterol 200/25 Blst.W.Dev) 1 puff INHALE RDAILY [facility] Last Admin: 12/28/24 09:20 Dose: 1 puff Haloperidol (Haloperidol 5 Mg Tablet) 5 mg PO TID [facility] Last Admin: 12/28/24 20:53 Dose: 5 mg Haloperidol Decanoate (Haloperidol Decanoate 50 Mg/Ml Vial) 75 mg IM Q28D [facility] Hydroxyzine HCl (Hydroxyzine Hcl 50 Mg Tablet) 50 mg PO Q6H PRN PRN Reason: mild anxiety Last Admin: 12/28/24 23:59 Dose: 50 mg [place] Carbonate ([place] Carbonate Er 450 Mg Tablet.Er) 900 mg PO BEDTIME [facility] Last Admin: 12/28/24 20:53 Dose: 900 mg Loratadine (Loratadine 10 Mg Tablet) 10 mg PO DAILY [facility] Last Admin: 12/28/24 09:17 Dose: 10 mg Lorazepam (Lorazepam 1 Mg Tablet) 1 mg PO TID PRN PRN Reason: anxiety/agitation Last Admin: 12/28/24 23:59 Dose: 1 mg Multivitamins/Vitamin C (Multivitamin Tablet) 1 tab PO DAILY [facility] Last Admin: 12/28/24 09:19 Dose: 1 tab Omeprazole (Omeprazole 20 Mg Capsule.Dr) 20 mg PO Q48H [facility] Last Admin: 12/28/24 06:11 Dose: 20 mg Prazosin HCl (Prazosin Hcl 1 Mg Capsule) 1 mg PO BEDTIME [facility]; Protocol Last Admin: 12/28/24 20:52 Dose: 1 mg Prazosin HCl (Prazosin Hcl 5 Mg Capsule) 15 mg PO BEDTIME [facility]; Protocol Last Admin: 12/28/24 20:52 Dose: 15 mg Tiotropium [place] (Tiotropium [place] 2.5 Mcg 1 Puff/2.5 Mcg Mist.Inhal) 1 puff INHALE DAILY [facility] Last Admin: 12/28/24 10:06 Dose: Not Given Trazodone HCl (Trazodone Hcl 100 Mg Tablet) 200 mg PO BEDTIME [facility] Last Admin: 12/28/24 20:52 Dose: 200 mg Vitamin D (Cholecalciferol (Vitamin D3) 25 Mcg Tablet) 25 mcg PO DAILY [facility] Last Admin: 12/28/24 09:17 Dose: 25 mcg Zolpidem Tartrate (Zolpidem Tartrate 5 Mg Tablet) 5 mg PO BEDTIME [facility] Last Admin: 12/28/24 20:52 Dose: 5 mg Allergies Allergies Allergy/AdvReac Type Severity Reaction Status Date / Time carbamazepine [From TEGRETOL] AdvReac Mild Nausea and Verified 12/26/24 19:43 Vomiting topiramate [From Topamax] AdvReac Mild Nausea and Verified 12/26/24 19:43 Vomiting Assessment & Plan Assessment & Plan (1) MDD (major depressive disorder), recurrent, severe, with psychosis: Status: Acute Code(s): F33.3 - Major depressive disorder, recurrent, severe with psychotic symptoms (2) Chronic post-traumatic stress disorder (PTSD): Status: Acute Code(s): F43.12 - Post-traumatic stress disorder, chronic (3) Borderline personality disorder: Status: Chronic Code(s): F60.3 - Borderline personality disorder Plan 12/29: 1:1 safety checks. She continues to report feeling depressed and having suicidal ideation with no plan. Pt reports she will try to attend groups today. +AH; pt stated she is trying to block them out . denies HI/VH. Continue current tx plan. Patient educated on: diagnosis, medication risk/benefits and therapeutic strategies Reason for continued inpatient stay Substantial Risk for: harm to self and med/psych decompensation Time Spent With Patient Time: Total time managing care of this patient today _20___ minutes.
[2024-12-29 10:08] VITALS: BP 111/67
[2024-12-29] MEDS: cloNIDine HCL 0.1 MG TABLET PO ×3 (10:08→20:59)
[2024-12-29] MEDS: Calcium + Vitamin D 250 MG TABLET 500 MG PO ×2 (10:08→20:57)
[2024-12-29] MEDS: Multivitamin TABLET 1 TAB PO (10:08)
[2024-12-29] MEDS: Cholecalciferol (Vitamin D3) 25 MCG TABLET PO (10:09)
[2024-12-29] MEDS: DULoxetine HCl 30 MG CAPSULE.DR PO (10:09)
[2024-12-29] MEDS: Benztropine Mesylate 0.5 MG TABLET PO ×2 (10:09→20:59)
[2024-12-29] MEDS: DULoxetine HCl 60 MG CAPSULE.DR PO (10:09)
[2024-12-29] MEDS: HaloperidoL 5 MG TABLET PO ×3 (10:09→20:59)
[2024-12-29] MEDS: Loratadine 10 MG TABLET PO (10:10)
[2024-12-29] MEDS: Tiotropium Bromide 2.5 mcg 1 PUFF/2.5 MCG MIST.INHAL INHALE (10:10)
[2024-12-29] MEDS: Fluticasone/Vilanterol 200/25 BLST.W.DEV 1 PUFF INHALE (10:12)
[2024-12-29] MEDS: LORazepam 1 MG TABLET PO ×2 (12:43→21:31)
[2024-12-29] MEDS: hydrOXYzine HCL 50 MG TABLET PO (12:44)
[2024-12-29 14:05] VITALS: BP 100/58; PULSE 69
[2024-12-29 20:00] VITALS: BP 96/58; PULSE 72; RESP 18; TEMP 31.6; O2SAT 98
[2024-12-29] MEDS: Acetaminophen 325 MG TABLET 650 MG PO (20:52)
[2024-12-29] MEDS: Prazosin HCL 5 MG CAPSULE 15 MG PO (20:55)
[2024-12-29] MEDS: Lithium Carbonate ER 450 MG TABLET.ER 900 MG PO (20:55)
[2024-12-29] MEDS: traZODone HCL 100 MG TABLET 200 MG PO (20:55)
[2024-12-29] MEDS: diphenhydrAMINE HCL 25 MG CAPSULE 100 MG PO (20:56)
[2024-12-29] MEDS: Zolpidem Tartrate 5 MG TABLET PO (20:57)
[2024-12-29] MEDS: Prazosin HCL 1 MG CAPSULE PO (20:57)
[2024-12-30] MEDS: Omeprazole 20 MG CAPSULE.DR PO (06:49)
--- NOTE | 2024-12-30 07:27 | HO.PSYCHPN ---
Subjective Subjective Date of Service: 12/30/24 Reason For Visit: si, sect 12 Subjective Notes: Conditional Voluntary Interim History: met with patient. Discussed with Nursing. Feeling supported with one-to-one observation. Slept 5-6 hours last night. Did hit self once. Reports feeling depressed, anxious and command hallucinations to hurt self. Reports very distressing. Suicidal thoughts but no plan. Feeling triggered by a loud male patient. Did ask for antipsychotic medications to be adjusted. Medication Compliance: Yes Side effects from medications: No Attending Groups: No Review of Systems Acute medical concerns: No Review of Systems Review of Systems Unremarkable Mental Status Exam Mental Status Exam Narrative: Pt is alert and oriented; behavior is cooperative and calm; dressed in casual attire with unkempt hair; mood is described as depressed ; eye contact appropriate; Speech is normal rate, volume and not pressured; thought process is organized; Thought content is on tx; denies HI/VH. Patient reports suicidal ideation with no plan.+ auditory hallucinations - command to kill self. Distressed by same. Insight and judgment fair Diagnostics Vital Signs (24Hr): Vital Signs - 24 hr 12/29/24 07:43 12/29/24 10:08 12/29/24 14:05 Temperature 97.7 F Pulse Rate 73 69 Respiratory Rate 16 Blood Pressure 111/67 111/67 100/58 L Pulse Oximetry 97 Oxygen Delivery Method Room Air 12/29/24 20:00 Temperature 88.8 F L Pulse Rate 72 Respiratory Rate 18 Blood Pressure 96/58 L Pulse Oximetry 98 Oxygen Delivery Method Room Air BMI result Body Mass Index 34.3 Labs 12/26/24 20:05 12/26/24 20:05 Medications Medications Current Medications Acetaminophen (Acetaminophen 325 Mg Tablet) 650 mg PO Q6H PRN PRN Reason: Headache/Pain, Scale 1-10 Last Admin: 12/29/24 20:52 Dose: 650 mg Albuterol Sulfate (Albuterol Sulfate 90 Mcg 8 Gm Inhaler) 2 puff INHALE RQ4H PRN PRN Reason: shortness of breath or wheezing Benztropine Mesylate (Benztropine Mesylate 0.5 Mg Tablet) 0.5 mg PO BID [facility]CLUD[facility] Last Admin: 12/29/24 20:59 Dose: 0.5 mg Calcium Carbonate/Cholecalciferol (Calcium + Vitamin D 250 Mg Tablet) 500 mg PO BID COUNT INCLUDES [facility] Last Admin: 12/29/24 20:57 Dose: 500 mg Clonidine HCl (Clonidine Hcl 0.1 Mg Tablet) 0.1 mg PO TID [facility]; Protocol Last Admin: 12/29/24 20:59 Dose: 0.1 mg Diphenhydramine HCl (Diphenhydramine Hcl 25 Mg Capsule) 100 mg PO BEDTIME [facility] Last Admin: 12/29/24 20:56 Dose: 100 mg Duloxetine HCl (Duloxetine Hcl 30 Mg Capsule.Dr) 30 mg PO DAILY [facility] Last Admin: 12/29/24 10:09 Dose: 30 mg Duloxetine HCl (Duloxetine Hcl 60 Mg Capsule.Dr) 60 mg PO DAILY [facility] Last Admin: 12/29/24 10:09 Dose: 60 mg Fluticasone/Vilanterol (Fluticasone/Vilanterol 200/25 Blst.W.Dev) 1 puff INHALE RDAILY COUNT [facility]CLUD[facility] Last Admin: 12/29/24 10:12 Dose: 1 puff Haloperidol (Haloperidol 5 Mg Tablet) 5 mg PO TID [facility] Last Admin: 12/29/24 20:59 Dose: 5 mg Haloperidol Decanoate (Haloperidol Decanoate 50 Mg/Ml Vial) 75 mg IM Q28D COUNT [facility]CLUD[facility] Hydroxyzine HCl (Hydroxyzine Hcl 50 Mg Tablet) 50 mg PO Q6H PRN PRN Reason: mild anxiety Last Admin: 12/29/24 12:44 Dose: 50 mg [place] Carbonate ([place] Carbonate Er 450 Mg Tablet.Er) 900 mg PO BEDTIME [facility] Last Admin: 12/29/24 20:55 Dose: 900 mg Loratadine (Loratadine 10 Mg Tablet) 10 mg PO DAILY [facility] Last Admin: 12/29/24 10:10 Dose: 10 mg Lorazepam (Lorazepam 1 Mg Tablet) 1 mg PO TID PRN PRN Reason: anxiety/agitation Last Admin: 12/29/24 21:31 Dose: 1 mg Multivitamins/Vitamin C (Multivitamin Tablet) 1 tab PO DAILY [facility] Last Admin: 12/29/24 10:08 Dose: 1 tab Omeprazole (Omeprazole 20 Mg Capsule.Dr) 20 mg PO Q48H [facility] Last Admin: 12/30/24 06:49 Dose: 20 mg Prazosin HCl (Prazosin Hcl 1 Mg Capsule) 1 mg PO BEDTIME [facility]; Protocol Last Admin: 12/29/24 20:57 Dose: 1 mg Prazosin HCl (Prazosin Hcl 5 Mg Capsule) 15 mg PO BEDTIME [facility]CLUDES [facility]; Protocol Last Admin: 12/29/24 20:55 Dose: 15 mg Tiotropium [place] (Tiotropium [place] 2.5 Mcg 1 Puff/2.5 Mcg Mist.Inhal) 1 puff INHALE DAILY COUNT [facility]CLUDES [facility] Last Admin: 12/29/24 10:10 Dose: 1 puff Trazodone HCl (Trazodone Hcl 100 Mg Tablet) 200 mg PO BEDTIME COUNT [facility]CLUDES [facility] Last Admin: 12/29/24 20:55 Dose: 200 mg Vitamin D (Cholecalciferol (Vitamin D3) 25 Mcg Tablet) 25 mcg PO DAILY COUNT [facility]CLUD[facility] Last Admin: 12/29/24 10:09 Dose: 25 mcg Zolpidem Tartrate (Zolpidem Tartrate 5 Mg Tablet) 5 mg PO BEDTIME COUNT [facility]CLUDES [facility] Last Admin: 12/29/24 20:57 Dose: 5 mg Allergies Allergies Allergy/AdvReac Type Severity Reaction Status Date / Time carbamazepine [From TEGRETOL] AdvReac Mild Nausea and Verified 12/26/24 19:43 Vomiting topiramate [From Topamax] AdvReac Mild Nausea and Verified 12/26/24 19:43 Vomiting Assessment & Plan Assessment & Plan (1) MDD (major depressive disorder), recurrent, severe, with psychosis: Status: Acute Code(s): F33.3 - Major depressive disorder, recurrent, severe with psychotic symptoms (2) Chronic post-traumatic stress disorder (PTSD): Status: Acute Code(s): F43.12 - Post-traumatic stress disorder, chronic (3) Borderline personality disorder: Status: Chronic Code(s): F60.3 - Borderline personality disorder Plan 12/29: 1:1 safety checks. She continues to report feeling depressed and having suicidal ideation with no plan. Pt reports she will try to attend groups today. +AH; pt stated she is trying to block them out . denies HI/VH. Continue current tx plan. 12/30/2024: Increase Haldol oral from 5 mg 3 times per day to 7.5 mg 3 times per day for command auditory hallucinations. Maintain one-to-one observation Reason for continued inpatient stay Substantial Risk for: harm to self Time Spent With Patient Time: Total time managing care of this patient today ____ minutes.
[2024-12-30 08:00] VITALS: BP 92/51; PULSE 62; RESP 16; TEMP 37; O2SAT 97
[2024-12-30] MEDS: Tiotropium Bromide 2.5 mcg 1 PUFF/2.5 MCG MIST.INHAL INHALE (09:20)
[2024-12-30] MEDS: Fluticasone/Vilanterol 200/25 BLST.W.DEV 1 PUFF INHALE (09:20)
[2024-12-30 09:21] VITALS: BP 100/56
[2024-12-30] MEDS: HaloperidoL 5 MG TABLET PO ×2 (09:21→14:04)
[2024-12-30] MEDS: Benztropine Mesylate 0.5 MG TABLET PO ×2 (09:21→20:55)
[2024-12-30] MEDS: cloNIDine HCL 0.1 MG TABLET PO ×3 (09:21→20:55)
[2024-12-30] MEDS: Calcium + Vitamin D 250 MG TABLET 500 MG PO ×2 (09:21→20:55)
[2024-12-30] MEDS: DULoxetine HCl 60 MG CAPSULE.DR PO (09:21)
[2024-12-30] MEDS: DULoxetine HCl 30 MG CAPSULE.DR PO (09:21)
[2024-12-30] MEDS: Multivitamin TABLET 1 TAB PO (09:22)
[2024-12-30] MEDS: Cholecalciferol (Vitamin D3) 25 MCG TABLET PO (09:22)
[2024-12-30] MEDS: Loratadine 10 MG TABLET PO (09:22)
[2024-12-30] MEDS: LORazepam 1 MG TABLET PO ×2 (12:40→22:14)
[2024-12-30 15:29] VITALS: BP 104/60
[2024-12-30 20:45] VITALS: BP 142/68; PULSE 71; RESP 16; TEMP 36.6; O2SAT 98
[2024-12-30] MEDS: Lithium Carbonate ER 450 MG TABLET.ER 900 MG PO (20:55)
[2024-12-30] MEDS: Prazosin HCL 1 MG CAPSULE PO (20:55)
[2024-12-30] MEDS: HaloperidoL 5 MG TABLET 7.5 MG PO (20:56)
[2024-12-30] MEDS: Prazosin HCL 5 MG CAPSULE 15 MG PO (20:56)
[2024-12-30] MEDS: Zolpidem Tartrate 5 MG TABLET PO (20:56)
[2024-12-30] MEDS: traZODone HCL 100 MG TABLET 200 MG PO (20:56)
[2024-12-30] MEDS: diphenhydrAMINE HCL 25 MG CAPSULE 100 MG PO (20:56)
[2024-12-30] MEDS: Acetaminophen 325 MG TABLET 650 MG PO (22:14)
[2024-12-31 08:00] VITALS: BP 100/53; PULSE 51; RESP 16; TEMP 36.8; O2SAT 97
[2024-12-31] MEDS: Calcium + Vitamin D 250 MG TABLET 500 MG PO ×2 (08:51→20:15)
[2024-12-31] MEDS: HaloperidoL 5 MG TABLET 7.5 MG PO ×3 (08:51→20:14)
[2024-12-31] MEDS: DULoxetine HCl 60 MG CAPSULE.DR PO (08:51)
[2024-12-31] MEDS: Multivitamin TABLET 1 TAB PO (08:52)
[2024-12-31] MEDS: Loratadine 10 MG TABLET PO (08:52)
[2024-12-31] MEDS: Cholecalciferol (Vitamin D3) 25 MCG TABLET PO (08:52)
[2024-12-31] MEDS: DULoxetine HCl 30 MG CAPSULE.DR PO (08:52)
[2024-12-31] MEDS: Benztropine Mesylate 0.5 MG TABLET PO ×2 (08:52→20:15)
[2024-12-31] MEDS: Tiotropium Bromide 2.5 mcg 1 PUFF/2.5 MCG MIST.INHAL INHALE (08:53)
[2024-12-31] MEDS: Fluticasone/Vilanterol 200/25 BLST.W.DEV 1 PUFF INHALE (08:53)
[2024-12-31] MEDS: Acetaminophen 325 MG TABLET 650 MG PO ×2 (09:00→20:15)
--- NOTE | 2024-12-31 13:37 | P.PNPSI_ITS ---
Subjective Subjective Date of Service: 12/31/24 Reason For Visit: si, sect 12 Subjective Notes: Conditional Voluntary Medical Problems Affecting Mental Status: Yes Interim History: Remains on one to one with ongoing SI. Patient punched herself and hit her head yesterday but was redirectable. Also scratched her arm superficially with a foil lid which she hid under the blanket. Sleep is difficult due to nightmares. Eating OK. In bed in the dark. Trying to sleep during the day. Complaining of bakc pain. Medication Compliance: Yes Side effects from medications: Yes (lightheaded) Attending Groups: Intermittent Review of Systems Acute medical concerns: No Medical Review of Systems: unchanged Mental Status Exam Mental Status Exam Patient Appearance: Unkempt Level of Consciousness: Alert Patient Behavior: Appropriate Mood Description: Depressed Affect Description: Constricted and Depressed Patient Cognition Impaired: No Ability to Follow Directions: Fair Speech Pattern: Clear Memory Description: Intact Hallucinations: None Delusions: Not Present Thought Process: Linear Thought Content: positive for Intact Depressive Symptoms: Increased Anxiety, Insomnia, Increased Fatigue and Thoughts of /Suicide Judgement: Fair Diagnostics Vital Signs (24Hr): Vital Signs - 24 hr 12/30/24 15:29 12/30/24 20:45 12/31/24 08:00 Temperature 97.9 F 98.2 F Pulse Rate 71 51 Respiratory Rate 16 16 Blood Pressure 104/60 142/68 H 100/53 L Pulse Oximetry 98 97 Oxygen Delivery Method Room Air Room Air BMI result Body Mass Index 34.3 Labs 12/26/24 20:05 12/26/24 20:05 Medications Medications Current Medications Acetaminophen (Acetaminophen 325 Mg Tablet) 650 mg PO Q6H PRN PRN Reason: Headache/Pain, Scale 1-10 Last Admin: 12/31/24 09:00 Dose: 650 mg Albuterol Sulfate (Albuterol Sulfate 90 Mcg 8 Gm Inhaler) 2 puff INHALE RQ4H PRN PRN Reason: shortness of breath or wheezing Benztropine Mesylate (Benztropine Mesylate 0.5 Mg Tablet) 0.5 mg PO BID [facility] Last Admin: 12/31/24 08:52 Dose: 0.5 mg Calcium Carbonate/Cholecalciferol (Calcium + Vitamin D 250 Mg Tablet) 500 mg PO BID [facility] Last Admin: 12/31/24 08:51 Dose: 500 mg Clonidine HCl (Clonidine Hcl 0.1 Mg Tablet) 0.1 mg PO TID [facility]; Protocol Last Admin: 12/31/24 08:56 Dose: Not Given Diphenhydramine HCl (Diphenhydramine Hcl 25 Mg Capsule) 100 mg PO BEDTIME [facility] Last Admin: 12/30/24 20:56 Dose: 100 mg Duloxetine HCl (Duloxetine Hcl 30 Mg Capsule.Dr) 30 mg PO DAILY [facility] Last Admin: 12/31/24 08:52 Dose: 30 mg Duloxetine HCl (Duloxetine Hcl 60 Mg Capsule.Dr) 60 mg PO DAILY [facility] Last Admin: 12/31/24 08:51 Dose: 60 mg Fluticasone/Vilanterol (Fluticasone/Vilanterol 200/25 Blst.W.Dev) 1 puff INHALE RDAILY [facility] Last Admin: 12/31/24 08:53 Dose: 1 puff Haloperidol (Haloperidol 5 Mg Tablet) 7.5 mg PO TID [facility] Last Admin: 12/31/24 08:51 Dose: 7.5 mg Haloperidol Decanoate (Haloperidol Decanoate 50 Mg/Ml Vial) 75 mg IM Q28D [facility] Hydroxyzine HCl (Hydroxyzine Hcl 50 Mg Tablet) 50 mg PO Q6H PRN PRN Reason: mild anxiety Last Admin: 12/29/24 12:44 Dose: 50 mg [place] Carbonate ([place] Carbonate Er 450 Mg Tablet.Er) 900 mg PO BEDTIME [facility] Last Admin: 12/30/24 20:55 Dose: 900 mg Loratadine (Loratadine 10 Mg Tablet) 10 mg PO DAILY [facility] Last Admin: 12/31/24 08:52 Dose: 10 mg Lorazepam (Lorazepam 1 Mg Tablet) 1 mg PO TID PRN PRN Reason: anxiety/agitation Last Admin: 12/30/24 22:14 Dose: 1 mg Multivitamins/Vitamin C (Multivitamin Tablet) 1 tab PO DAILY [facility] Last Admin: 12/31/24 08:52 Dose: 1 tab Omeprazole (Omeprazole 20 Mg Capsule.Dr) 20 mg PO Q48H [facility] Last Admin: 12/30/24 06:49 Dose: 20 mg Prazosin HCl (Prazosin Hcl 1 Mg Capsule) 1 mg PO BEDTIME [facility]; Protocol Last Admin: 12/30/24 20:55 Dose: 1 mg Prazosin HCl (Prazosin Hcl 5 Mg Capsule) 15 mg PO BEDTIME [facility]; Protocol Last Admin: 12/30/24 20:56 Dose: 15 mg Tiotropium [place] (Tiotropium [place] 2.5 Mcg 1 Puff/2.5 Mcg Mist.Inhal) 1 puff INHALE DAILY [facility] Last Admin: 12/31/24 08:53 Dose: 1 puff Trazodone HCl (Trazodone Hcl 100 Mg Tablet) 200 mg PO BEDTIME [facility] Last Admin: 12/30/24 20:56 Dose: 200 mg Vitamin D (Cholecalciferol (Vitamin D3) 25 Mcg Tablet) 25 mcg PO DAILY [facility] Last Admin: 12/31/24 08:52 Dose: 25 mcg Zolpidem Tartrate (Zolpidem Tartrate 5 Mg Tablet) 5 mg PO BEDTIME [facility] Last Admin: 12/30/24 20:56 Dose: 5 mg Allergies Allergies Allergy/AdvReac Type Severity Reaction Status Date / Time carbamazepine [From TEGRETOL] AdvReac Mild Nausea and Verified 12/26/24 19:43 Vomiting topiramate [From Topamax] AdvReac Mild Nausea and Verified 12/26/24 19:43 Vomiting Assessment & Plan Assessment & Plan (1) MDD (major depressive disorder), recurrent, severe, with psychosis: Status: Acute Code(s): F33.3 - Major depressive disorder, recurrent, severe with psychotic symptoms (2) Chronic post-traumatic stress disorder (PTSD): Status: Acute Code(s): F43.12 - Post-traumatic stress disorder, chronic (3) Borderline personality disorder: Status: Chronic Code(s): F60.3 - Borderline personality disorder Plan 12/29: 1:1 safety checks. She continues to report feeling depressed and having suicidal ideation with no plan. Pt reports she will try to attend groups today. +AH; pt stated she is trying to block them out . denies HI/VH. Continue current tx plan. 12/30/2024: Increase Haldol oral from 5 mg 3 times per day to 7.5 mg 3 times per day for command auditory hallucinations. Maintain one-to-one observation : Haldol just increased. Consider increased tylenol, tramadol or other non-NSAID for back pain Reason for continued inpatient stay Substantial Risk for: harm to self Time Spent With Patient Time: Total time managing care of this patient today ____ minutes.
[2024-12-31 15:45] VITALS: BP 90/55
[2024-12-31 20:11] VITALS: BP 120/67; PULSE 62; RESP 16; TEMP 36.8; O2SAT 95
[2024-12-31] MEDS: cloNIDine HCL 0.1 MG TABLET PO (20:14)
[2024-12-31] MEDS: diphenhydrAMINE HCL 25 MG CAPSULE 100 MG PO (20:14)
[2024-12-31] MEDS: Prazosin HCL 1 MG CAPSULE PO (20:14)
[2024-12-31] MEDS: Prazosin HCL 5 MG CAPSULE 15 MG PO (20:14)
[2024-12-31] MEDS: Zolpidem Tartrate 5 MG TABLET PO (20:14)
[2024-12-31] MEDS: traZODone HCL 100 MG TABLET 200 MG PO (20:15)
[2024-12-31] MEDS: Lithium Carbonate ER 450 MG TABLET.ER 900 MG PO (20:15)
[2025-01-01] MEDS: LORazepam 1 MG TABLET PO (00:18)
[2025-01-01 07:25] VITALS: BP 113/70; PULSE 93; RESP 14; TEMP 36.4; O2SAT 98
[2025-01-01] MEDS: HaloperidoL 5 MG TABLET 7.5 MG PO ×2 (14:29→21:26)
[2025-01-01 14:30] VITALS: BP 113/65
[2025-01-01] MEDS: cloNIDine HCL 0.1 MG TABLET PO ×2 (14:30→21:28)
--- NOTE | 2025-01-01 15:08 | PC.NURSE ---
Patient declined all morning medications after attempting three separate times., reports she doesn't feel any better and doesn't see the point in taking them. Provider Ronnie Jesus was notified at 10:34 via tiger text.
--- NOTE | 2025-01-01 15:10 | PC.NURSE ---
Patient rang the call unger this afternoon around 14:30 while in her bathroom and was found by staff making inflictions to her left wrist with the lid/foil cover of a juice container. Patient's 1:1 was on her break at the time and the pt had a male [facility] staff covering (who was not aware the patient needed a female staff in the bathroom with her). Upon approach, staff attempted to re-orient the patient who appeared to be dissociating at the time she was found in the bathroom. The area was cleansed and covered with dry dressings by nursing staff and the patient was brought to the nurses station where she stated she was ready to take her 1500 medications. The provider Ronnie Jesus was notified of the incident in person shortly after.
--- NOTE | 2025-01-01 16:52 | P.PNPSI_ITS ---
Subjective Subjective Date of Service: 01/01/25 Reason For Visit: si, sect 12 Interim History: shaking of left arm in agitation . states misses her sister. anniversary of trial for her sister's murder was last week. per staff, cut self superficially with foil juice bottle seal during 1:1 hand-off. +SI. +meds. +AH. brightens on 1:1. colors when feeling unsafe. +SIBI. slept about 3 hours overnight. Mental Status Exam Mental Status Exam Narrative: Pt is alert and oriented; behavior is cooperative with PMA of tremulous left arm; dressed in casual attire with unkempt hair; mood is described as depressed ; eye contact appropriate; Speech is normal rate, volume and not pressured; thought process is organized; Thought content is on SI/SIBI. no HI/AVH expressed. Diagnostics Vital Signs (24Hr): Vital Signs - 24 hr 12/31/24 20:11 01/01/25 07:25 01/01/25 14:30 Temperature 98.3 F 97.6 F Pulse Rate 62 93 Respiratory Rate 16 14 Blood Pressure 120/67 113/70 113/65 Pulse Oximetry 95 98 Oxygen Delivery Method Room Air Room Air BMI result Body Mass Index 34.3 Labs 12/26/24 20:05 12/26/24 20:05 Medications Medications Current Medications Acetaminophen (Acetaminophen 325 Mg Tablet) 650 mg PO Q6H PRN PRN Reason: Headache/Pain, Scale 1-10 Last Admin: 12/31/24 20:15 Dose: 650 mg Albuterol Sulfate (Albuterol Sulfate 90 Mcg 8 Gm Inhaler) 2 puff INHALE RQ4H PRN PRN Reason: shortness of breath or wheezing Benztropine Mesylate (Benztropine Mesylate 0.5 Mg Tablet) 0.5 mg PO BID [facility] Last Admin: 01/01/25 10:34 Dose: Not Given Calcium Carbonate/Cholecalciferol (Calcium + Vitamin D 250 Mg Tablet) 500 mg PO BID [facility] Last Admin: 01/01/25 10:34 Dose: Not Given Clonidine HCl (Clonidine Hcl 0.1 Mg Tablet) 0.1 mg PO TID [facility]; Protocol Last Admin: 01/01/25 14:30 Dose: 0.1 mg Diphenhydramine HCl (Diphenhydramine Hcl 25 Mg Capsule) 100 mg PO BEDTIME [facility] Last Admin: 12/31/24 20:14 Dose: 100 mg Duloxetine HCl (Duloxetine Hcl 30 Mg Capsule.Dr) 30 mg PO DAILY [facility] Last Admin: 01/01/25 10:34 Dose: Not Given Duloxetine HCl (Duloxetine Hcl 60 Mg Capsule.Dr) 60 mg PO DAILY [facility] Last Admin: 01/01/25 10:34 Dose: Not Given Fluticasone/Vilanterol (Fluticasone/Vilanterol 200/25 Blst.W.Dev) 1 puff INHALE RDAILY [facility] Last Admin: 01/01/25 10:34 Dose: Not Given Haloperidol (Haloperidol 5 Mg Tablet) 7.5 mg PO TID [facility] Last Admin: 01/01/25 14:29 Dose: 7.5 mg Haloperidol Decanoate (Haloperidol Decanoate 50 Mg/Ml Vial) 75 mg IM Q28D [facility] Hydroxyzine HCl (Hydroxyzine Hcl 50 Mg Tablet) 50 mg PO Q6H PRN PRN Reason: mild anxiety Last Admin: 12/29/24 12:44 Dose: 50 mg [place] Carbonate ([place] Carbonate Er 450 Mg Tablet.Er) 900 mg PO BEDTIME [facility] Last Admin: 12/31/24 20:15 Dose: 900 mg Loratadine (Loratadine 10 Mg Tablet) 10 mg PO DAILY [facility] Last Admin: 01/01/25 10:35 Dose: Not Given Lorazepam (Lorazepam 1 Mg Tablet) 1 mg PO TID PRN PRN Reason: anxiety/agitation Last Admin: 01/01/25 00:18 Dose: 1 mg Multivitamins/Vitamin C (Multivitamin Tablet) 1 tab PO DAILY [facility] Last Admin: 01/01/25 10:35 Dose: Not Given Omeprazole (Omeprazole 20 Mg Capsule.Dr) 20 mg PO Q48H [facility] Last Admin: 01/01/25 08:48 Dose: Not Given Prazosin HCl (Prazosin Hcl 1 Mg Capsule) 1 mg PO BEDTIME [facility]; Protocol Last Admin: 12/31/24 20:14 Dose: 1 mg Prazosin HCl (Prazosin Hcl 5 Mg Capsule) 15 mg PO BEDTIME [facility]; Protocol Last Admin: 12/31/24 20:14 Dose: 15 mg Tiotropium [place] (Tiotropium [place] 2.5 Mcg 1 Puff/2.5 Mcg Mist.Inhal) 1 puff INHALE DAILY [facility] Last Admin: 01/01/25 10:35 Dose: Not Given Trazodone HCl (Trazodone Hcl 100 Mg Tablet) 200 mg PO BEDTIME [facility] Last Admin: 12/31/24 20:15 Dose: 200 mg Vitamin D (Cholecalciferol (Vitamin D3) 25 Mcg Tablet) 25 mcg PO DAILY [facility] Last Admin: 01/01/25 10:34 Dose: Not Given Zolpidem Tartrate (Zolpidem Tartrate 5 Mg Tablet) 5 mg PO BEDTIME [facility] Last Admin: 12/31/24 20:14 Dose: 5 mg Allergies Allergies Allergy/AdvReac Type Severity Reaction Status Date / Time carbamazepine [From TEGRETOL] AdvReac Mild Nausea and Verified 12/26/24 19:43 Vomiting topiramate [From Topamax] AdvReac Mild Nausea and Verified 12/26/24 19:43 Vomiting Assessment & Plan Assessment & Plan (1) MDD (major depressive disorder), recurrent, severe, with psychosis: Status: Acute Code(s): F33.3 - Major depressive disorder, recurrent, severe with psychotic symptoms (2) Chronic post-traumatic stress disorder (PTSD): Status: Acute Code(s): F43.12 - Post-traumatic stress disorder, chronic (3) Borderline personality disorder: Status: Chronic Code(s): F60.3 - Borderline personality disorder Plan 12/29: 1:1 safety checks. She continues to report feeling depressed and having suicidal ideation with no plan. Pt reports she will try to attend groups today. +AH; pt stated she is trying to block them out . denies HI/VH. Continue current tx plan. 12/30/2024: Increase Haldol oral from 5 mg 3 times per day to 7.5 mg 3 times per day for command auditory hallucinations. Maintain one-to-one observation 12/31/24: Haldol just increased. Consider increased tylenol, tramadol or other non-NSAID for back pain 01/01: cut self superficially with foil seal on juice bottle. unsafe at present, missing her sister a lot. continue on 1:1, keep safe, PRNs for agit/anxiety. pt requesting ECT. Reason for continued inpatient stay Substantial Risk for: harm to self Time Spent With Patient Time: Total time managing care of this patient today __25__ minutes.
[2025-01-01 19:22] VITALS: BP 128/77; PULSE 105; RESP 16; TEMP 36.4; O2SAT 97
[2025-01-01] MEDS: Calcium + Vitamin D 250 MG TABLET 500 MG PO (21:27)
[2025-01-01 21:28] VITALS: BP 139/88
[2025-01-01] MEDS: Lithium Carbonate ER 450 MG TABLET.ER 900 MG PO (21:28)
[2025-01-01] MEDS: Zolpidem Tartrate 5 MG TABLET PO (21:28)
[2025-01-01] MEDS: Benztropine Mesylate 0.5 MG TABLET PO (21:28)
[2025-01-01] MEDS: Prazosin HCL 5 MG CAPSULE 15 MG PO (21:28)
[2025-01-01] MEDS: Prazosin HCL 1 MG CAPSULE PO (21:28)
[2025-01-01] MEDS: traZODone HCL 100 MG TABLET 200 MG PO (21:28)
[2025-01-01] MEDS: diphenhydrAMINE HCL 25 MG CAPSULE 100 MG PO (21:29)
[2025-01-01] MEDS: Ondansetron ODT 4 MG TAB.RAPDIS TRANSLINGU (23:42)
[2025-01-02] MEDS: LORazepam 1 MG TABLET PO ×3 (02:24→22:28)
[2025-01-02] MEDS: Acetaminophen 325 MG TABLET 650 MG PO ×3 (05:06→21:36)
[2025-01-02 08:00] VITALS: BP 124/76; PULSE 61; RESP 16; TEMP 36.4; O2SAT 97
[2025-01-02] MEDS: Loratadine 10 MG TABLET PO (08:06)
[2025-01-02] MEDS: cloNIDine HCL 0.1 MG TABLET PO ×2 (08:06→21:31)
[2025-01-02] MEDS: HaloperidoL 5 MG TABLET 7.5 MG PO ×3 (08:06→21:30)
[2025-01-02] MEDS: Multivitamin TABLET 1 TAB PO (08:07)
[2025-01-02] MEDS: DULoxetine HCl 60 MG CAPSULE.DR PO (08:07)
[2025-01-02] MEDS: Calcium + Vitamin D 250 MG TABLET 500 MG PO ×2 (08:07→21:33)
[2025-01-02] MEDS: Cholecalciferol (Vitamin D3) 25 MCG TABLET PO (08:08)
[2025-01-02] MEDS: DULoxetine HCl 30 MG CAPSULE.DR PO (08:08)
[2025-01-02] MEDS: Benztropine Mesylate 0.5 MG TABLET PO ×2 (08:08→21:31)
[2025-01-02 14:33] VITALS: BP 96/60
--- NOTE | 2025-01-02 16:10 | P.PNPSI_ITS ---
Subjective Subjective Date of Service: 01/02/25 Reason For Visit: si, sect 12 Interim History: in bed, appears less distressed than yesterday. no tremoring. acknowledges feeling better than yesterday. discuss resuming ECT outpt. informed SIA Tomlinson will be discussing dispo planning with her outpt team and will likely happen later this week. per staff, refused morning meds yesterday, took 3 pm meds. during sitter change cut self with tin foil from juice bottle top. +SI/SIBI. CAH. slept in sensory room. slept about 4 hours overnight. Mental Status Exam Mental Status Exam Narrative: Pt is alert and oriented; behavior is cooperative; dressed in casual attire with unkempt hair; mood is described as better; eye contact appropriate; Speech is normal rate, volume and not pressured; thought process is organized; Thought content is on back pain. no SI/SIBI/HI/AVH expressed. Diagnostics Vital Signs (24Hr): Vital Signs - 24 hr 01/01/25 19:22 01/01/25 21:28 01/01/25 21:28 Temperature 97.6 F Pulse Rate 105 H Respiratory Rate 16 Blood Pressure 128/77 139/88 139/88 Pulse Oximetry 97 Oxygen Delivery Method Room Air 01/01/25 21:28 01/02/25 08:00 01/02/25 14:33 Temperature 97.5 F Pulse Rate 61 Respiratory Rate 16 Blood Pressure 139/88 124/76 96/60 Pulse Oximetry 97 Oxygen Delivery Method Room Air BMI result Body Mass Index 34.3 Labs 12/26/24 20:05 12/26/24 20:05 Medications Medications Current Medications Acetaminophen (Acetaminophen 325 Mg Tablet) 650 mg PO Q6H PRN PRN Reason: Headache/Pain, Scale 1-10 Last Admin: 01/02/25 14:28 Dose: 650 mg Albuterol Sulfate (Albuterol Sulfate 90 Mcg 8 Gm Inhaler) 2 puff INHALE RQ4H PRN PRN Reason: shortness of breath or wheezing Benztropine Mesylate (Benztropine Mesylate 0.5 Mg Tablet) 0.5 mg PO BID [facility] Last Admin: 01/02/25 08:08 Dose: 0.5 mg Calcium Carbonate/Cholecalciferol (Calcium + Vitamin D 250 Mg Tablet) 500 mg PO BID [facility] Last Admin: 01/02/25 08:07 Dose: 500 mg Clonidine HCl (Clonidine Hcl 0.1 Mg Tablet) 0.1 mg PO TID [facility]; Protocol Last Admin: 01/02/25 14:33 Dose: Not Given Diphenhydramine HCl (Diphenhydramine Hcl 25 Mg Capsule) 100 mg PO BEDTIME [facility] Last Admin: 01/01/25 21:29 Dose: 100 mg Duloxetine HCl (Duloxetine Hcl 30 Mg Capsule.) 30 mg PO DAILY [facility] Last Admin: 01/02/25 08:08 Dose: 30 mg Duloxetine HCl (Duloxetine Hcl 60 Mg Capsule.) 60 mg PO DAILY [facility] Last Admin: 01/02/25 08:07 Dose: 60 mg Fluticasone/Vilanterol (Fluticasone/Vilanterol 200/25 Blst.W.Dev) 1 puff INHALE RDAILY [facility] Last Admin: 01/02/25 08:09 Dose: Not Given Haloperidol (Haloperidol 5 Mg Tablet) 7.5 mg PO TID [facility] Last Admin: 01/02/25 14:27 Dose: 7.5 mg Haloperidol Decanoate (Haloperidol Decanoate 50 Mg/Ml Vial) 75 mg IM Q28D [facility] Hydroxyzine HCl (Hydroxyzine Hcl 50 Mg Tablet) 50 mg PO Q6H PRN PRN Reason: mild anxiety Last Admin: 12/29/24 12:44 Dose: 50 mg [place] Carbonate ([place] Carbonate Er 450 Mg Tablet.Er) 900 mg PO BEDTIME [facility] Last Admin: 01/01/25 21:28 Dose: 900 mg Loratadine (Loratadine 10 Mg Tablet) 10 mg PO DAILY [facility] Last Admin: 01/02/25 08:06 Dose: 10 mg Lorazepam (Lorazepam 1 Mg Tablet) 1 mg PO TID PRN PRN Reason: anxiety/agitation Last Admin: 01/02/25 02:24 Dose: 1 mg Multivitamins/Vitamin C (Multivitamin Tablet) 1 tab PO DAILY [facility] Last Admin: 01/02/25 08:07 Dose: 1 tab Omeprazole (Omeprazole 20 Mg Capsule.) 20 mg PO Q48H [facility] Last Admin: 01/01/25 08:48 Dose: Not Given Ondansetron HCl (Ondansetron Odt 4 Mg Tab.Rapdis) 4 mg TRANSLINGU Q6H PRN PRN Reason: Nausea and Vomiting Last Admin: 01/01/25 23:42 Dose: 4 mg Prazosin HCl (Prazosin Hcl 1 Mg Capsule) 1 mg PO BEDTIME [facility]; Protocol Last Admin: 01/01/25 21:28 Dose: 1 mg Prazosin HCl (Prazosin Hcl 5 Mg Capsule) 15 mg PO BEDTIME [facility]; Protocol Last Admin: 01/01/25 21:28 Dose: 15 mg Tiotropium [place] (Tiotropium [place] 2.5 Mcg 1 Puff/2.5 Mcg Mist.Inhal) 1 puff INHALE DAILY [facility] Last Admin: 01/02/25 08:09 Dose: Not Given Trazodone HCl (Trazodone Hcl 100 Mg Tablet) 200 mg PO BEDTIME [facility] Last Admin: 01/01/25 21:28 Dose: 200 mg Vitamin D (Cholecalciferol (Vitamin D3) 25 Mcg Tablet) 25 mcg PO DAILY [facility] Last Admin: 01/02/25 08:08 Dose: 25 mcg Zolpidem Tartrate (Zolpidem Tartrate 5 Mg Tablet) 5 mg PO BEDTIME [facility] Last Admin: 01/01/25 21:28 Dose: 5 mg Allergies Allergies Allergy/AdvReac Type Severity Reaction Status Date / Time carbamazepine [From TEGRETOL] AdvReac Mild Nausea and Verified 12/26/24 19:43 Vomiting topiramate [From Topamax] AdvReac Mild Nausea and Verified 12/26/24 19:43 Vomiting Assessment & Plan Assessment & Plan (1) MDD (major depressive disorder), recurrent, severe, with psychosis: Status: Acute Code(s): F33.3 - Major depressive disorder, recurrent, severe with psychotic symptoms (2) Chronic post-traumatic stress disorder (PTSD): Status: Acute Code(s): F43.12 - Post-traumatic stress disorder, chronic (3) Borderline personality disorder: Status: Chronic Code(s): F60.3 - Borderline personality disorder Plan 12/29: 1:1 safety checks. She continues to report feeling depressed and having suicidal ideation with no plan. Pt reports she will try to attend groups today. +AH; pt stated she is trying to block them out . denies HI/VH. Continue current tx plan. 12/30/2024: Increase Haldol oral from 5 mg 3 times per day to 7.5 mg 3 times per day for command auditory hallucinations. Maintain one-to-one observation 12/31/24: Haldol just increased. Consider increased tylenol, tramadol or other non-NSAID for back pain 01/01: cut self superficially with foil seal on juice bottle. unsafe at present, missing her sister a lot. continue on 1:1, keep safe, PRNs for agit/anxiety. pt requesting ECT. 01/02: feeling better than yesterday. talking outpt ECT and dispo planning. continue current mgmt. 1:1 at bedside. Reason for continued inpatient stay Substantial Risk for: harm to self Time Spent With Patient Time: Total time managing care of this patient today __25__ minutes.
[2025-01-02 21:30] VITALS: BP 134/65; PULSE 70; RESP 16; TEMP 36.4; O2SAT 97
[2025-01-02] MEDS: Prazosin HCL 1 MG CAPSULE PO (21:31)
[2025-01-02] MEDS: traZODone HCL 100 MG TABLET 200 MG PO (21:32)
[2025-01-02] MEDS: Prazosin HCL 5 MG CAPSULE 15 MG PO (21:32)
[2025-01-02] MEDS: Zolpidem Tartrate 5 MG TABLET PO (21:34)
[2025-01-02] MEDS: Lithium Carbonate ER 450 MG TABLET.ER 900 MG PO (21:34)
[2025-01-02] MEDS: diphenhydrAMINE HCL 25 MG CAPSULE 100 MG PO (21:34)
--- NOTE | 2025-01-03 | ECG_ITS ---
Test Reason : ECT clearance Blood Pressure : */* mmHG Vent. Rate : 63 BPM Atrial Rate : 63 BPM P-R Int : 160 ms QRS Dur : 74 ms QT Int : 418 ms P-R-T Axes : 70 70 41 degrees QTcB Int : 427 ms Normal sinus rhythm Nonspecific ST and T wave abnormality Abnormal ECG When compared with ECG of 27-Dec-2024 17:00, No significant change was found Referred By: Ina Farah Electronically Signed By: DONAL HAAS MD
[2025-01-03 08:00] VITALS: BP 98/54; PULSE 60; RESP 16; TEMP 36.6; O2SAT 98
[2025-01-03] MEDS: HaloperidoL 5 MG TABLET 7.5 MG PO ×3 (08:34→21:08)
[2025-01-03] MEDS: Omeprazole 20 MG CAPSULE.DR PO (08:35)
[2025-01-03] MEDS: DULoxetine HCl 30 MG CAPSULE.DR PO (08:35)
[2025-01-03] MEDS: Calcium + Vitamin D 250 MG TABLET 500 MG PO ×2 (08:35→21:13)
[2025-01-03] MEDS: Cholecalciferol (Vitamin D3) 25 MCG TABLET PO (08:35)
[2025-01-03] MEDS: DULoxetine HCl 60 MG CAPSULE.DR PO (08:35)
[2025-01-03] MEDS: Multivitamin TABLET 1 TAB PO (08:36)
[2025-01-03] MEDS: Benztropine Mesylate 0.5 MG TABLET PO ×2 (08:36→21:13)
[2025-01-03] MEDS: Loratadine 10 MG TABLET PO (08:36)
--- NOTE | 2025-01-03 15:21 | HO.PSYCHPN ---
Subjective Subjective Date of Service: 01/03/25 Reason For Visit: si, sect 12 Subjective Notes: Conditional Voluntary Interim History: Patient is requesting to be discharged home. Pt stated, I'm feeling better. I want to go home . Pt reports her mood is improved. denies SI/HI/VH. Continues to report auditory hallucinations which she has at baseline; pt stated, the voices are fine . Plans on discharging home tomorrow and following up with her outpatient providers. Medication Compliance: Yes Side effects from medications: No Mental Status Exam Mental Status Exam Narrative: Pt is alert and oriented; behavior is cooperative, friendly and calm; dressed in casual attire; mood is described as good ; eye contact appropriate; Speech is normal rate, volume and not pressured; thought process is organized; Thought content is on tx/discharge; denies SI/HI/VH. +AH which pt states is her baseline and is low at this time. Diagnostics Vital Signs (24Hr): Vital Signs - 24 hr 01/02/25 21:30 01/03/25 08:00 Temperature 97.6 F 97.8 F Pulse Rate 70 60 Respiratory Rate 16 16 Blood Pressure 134/65 98/54 L Pulse Oximetry 97 98 Oxygen Delivery Method Room Air Room Air BMI result Body Mass Index 34.3 Labs 12/26/24 20:05 12/26/24 20:05 Medications Medications Current Medications Acetaminophen (Acetaminophen 325 Mg Tablet) 650 mg PO Q6H PRN PRN Reason: Headache/Pain, Scale 1-10 Last Admin: 01/02/25 21:36 Dose: 650 mg Albuterol Sulfate (Albuterol Sulfate 90 Mcg 8 Gm Inhaler) 2 puff INHALE RQ4H PRN PRN Reason: shortness of breath or wheezing Benztropine Mesylate (Benztropine Mesylate 0.5 Mg Tablet) 0.5 mg PO BID [facility] Last Admin: 01/03/25 08:36 Dose: 0.5 mg Calcium Carbonate/Cholecalciferol (Calcium + Vitamin D 250 Mg Tablet) 500 mg PO BID [facility] Last Admin: 01/03/25 08:35 Dose: 500 mg Clonidine HCl (Clonidine Hcl 0.1 Mg Tablet) 0.1 mg PO TID [facility]; Protocol Last Admin: 01/03/25 08:36 Dose: Not Given Diphenhydramine HCl (Diphenhydramine Hcl 25 Mg Capsule) 100 mg PO BEDTIME [facility] Last Admin: 01/02/25 21:34 Dose: 100 mg Duloxetine HCl (Duloxetine Hcl 30 Mg Capsule.) 30 mg PO DAILY [facility] Last Admin: 01/03/25 08:35 Dose: 30 mg Duloxetine HCl (Duloxetine Hcl 60 Mg Capsule.) 60 mg PO DAILY [facility] Last Admin: 01/03/25 08:35 Dose: 60 mg Fluticasone/Vilanterol (Fluticasone/Vilanterol 200/25 Blst.W.Dev) 1 puff INHALE RDAILY [facility] Last Admin: 01/03/25 08:37 Dose: Not Given Haloperidol (Haloperidol 5 Mg Tablet) 7.5 mg PO TID [facility] Last Admin: 01/03/25 08:34 Dose: 7.5 mg Haloperidol Decanoate (Haloperidol Decanoate 50 Mg/Ml Vial) 75 mg IM Q28D [facility] Hydroxyzine HCl (Hydroxyzine Hcl 50 Mg Tablet) 50 mg PO Q6H PRN PRN Reason: mild anxiety Last Admin: 12/29/24 12:44 Dose: 50 mg [place] Carbonate (Milfay Carbonate Er 450 Mg Tablet.Er) 900 mg PO BEDTIME [facility] Last Admin: 01/02/25 21:34 Dose: 900 mg Loratadine (Loratadine 10 Mg Tablet) 10 mg PO DAILY [facility] Last Admin: 01/03/25 08:36 Dose: 10 mg Lorazepam (Lorazepam 1 Mg Tablet) 1 mg PO TID PRN PRN Reason: anxiety/agitation Last Admin: 01/02/25 22:28 Dose: 1 mg Multivitamins/Vitamin C (Multivitamin Tablet) 1 tab PO DAILY [facility] Last Admin: 01/03/25 08:36 Dose: 1 tab Omeprazole (Omeprazole 20 Mg Capsule.) 20 mg PO Q48H [facility] Last Admin: 01/03/25 08:35 Dose: 20 mg Ondansetron HCl (Ondansetron Odt 4 Mg Tab.Rapdis) 4 mg TRANSLINGU Q6H PRN PRN Reason: Nausea and Vomiting Last Admin: 01/01/25 23:42 Dose: 4 mg Prazosin HCl (Prazosin Hcl 1 Mg Capsule) 1 mg PO BEDTIME [facility]; Protocol Last Admin: 01/02/25 21:31 Dose: 1 mg Prazosin HCl (Prazosin Hcl 5 Mg Capsule) 15 mg PO BEDTIME [facility]; Protocol Last Admin: 01/02/25 21:32 Dose: 15 mg Tiotropium [place] (Tiotropium [place] 2.5 Mcg 1 Puff/2.5 Mcg Mist.Inhal) 1 puff INHALE DAILY [facility] Last Admin: 01/03/25 08:38 Dose: Not Given Trazodone HCl (Trazodone Hcl 100 Mg Tablet) 200 mg PO BEDTIME [facility] Last Admin: 01/02/25 21:32 Dose: 200 mg Vitamin D (Cholecalciferol (Vitamin D3) 25 Mcg Tablet) 25 mcg PO DAILY [facility] Last Admin: 01/03/25 08:35 Dose: 25 mcg Zolpidem Tartrate (Zolpidem Tartrate 5 Mg Tablet) 5 mg PO BEDTIME [facility] Last Admin: 01/02/25 21:34 Dose: 5 mg Allergies Allergies Allergy/AdvReac Type Severity Reaction Status Date / Time carbamazepine [From TEGRETOL] AdvReac Mild Nausea and Verified 12/26/24 19:43 Vomiting topiramate [From Topamax] AdvReac Mild Nausea and Verified 12/26/24 19:43 Vomiting Assessment & Plan Assessment & Plan (1) MDD (major depressive disorder), recurrent, severe, with psychosis: Status: Acute Code(s): F33.3 - Major depressive disorder, recurrent, severe with psychotic symptoms (2) Chronic post-traumatic stress disorder (PTSD): Status: Acute Code(s): F43.12 - Post-traumatic stress disorder, chronic (3) Borderline personality disorder: Status: Chronic Code(s): F60.3 - Borderline personality disorder Plan 12/29: 1:1 safety checks. She continues to report feeling depressed and having suicidal ideation with no plan. Pt reports she will try to attend groups today. +AH; pt stated she is trying to block them out . denies HI/VH. Continue current tx plan. 12/30/2024: Increase Haldol oral from 5 mg 3 times per day to 7.5 mg 3 times per day for command auditory hallucinations. Maintain one-to-one observation 12/31/24: Haldol just increased. Consider increased tylenol, tramadol or other non-NSAID for back pain 01/01: cut self superficially with foil seal on juice bottle. unsafe at present, missing her sister a lot. continue on 1:1, keep safe, PRNs for agit/anxiety. pt requesting ECT. 01/02: feeling better than yesterday. talking outpt ECT and dispo planning. continue current mgmt. 1:1 at bedside. 01/03: Patient is requesting to be discharged home. Pt stated, I'm feeling better. I want to go home . Pt reports her mood is improved. denies SI/HI/VH. Continues to report auditory hallucinations which she has at baseline; pt stated, the voices are fine . Plans on discharging home tomorrow and following up with her outpatient providers. Patient educated on: diagnosis and medication risk/benefits Reason for continued inpatient stay Substantial Risk for: stable for discharge Time Spent With Patient Time: Total time managing care of this patient today _20___ minutes.
[2025-01-03 15:34] VITALS: BP 114/70; PULSE 80; O2SAT 97
[2025-01-03] MEDS: cloNIDine HCL 0.1 MG TABLET PO ×2 (15:41→21:13)
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
[2025-01-03 20:00] VITALS: BP 111/76; PULSE 66; RESP 16; TEMP 36.8; O2SAT 99
[2025-01-03] MEDS: traZODone HCL 100 MG TABLET 200 MG PO (21:09)
[2025-01-03] MEDS: Acetaminophen 325 MG TABLET 650 MG PO (21:09)
[2025-01-03] MEDS: Prazosin HCL 5 MG CAPSULE 15 MG PO (21:10)
[2025-01-03] MEDS: diphenhydrAMINE HCL 25 MG CAPSULE 100 MG PO (21:11)
[2025-01-03] MEDS: Lithium Carbonate ER 450 MG TABLET.ER 900 MG PO (21:12)
[2025-01-03] MEDS: Prazosin HCL 1 MG CAPSULE PO (21:13)
[2025-01-03] MEDS: Zolpidem Tartrate 5 MG TABLET PO (21:13)
[2025-01-04 07:00] VITALS: BMI 34.0
[2025-01-04 08:10] VITALS: BP 110/72; PULSE 69; RESP 18; TEMP 36.4; O2SAT 96
[2025-01-04] MEDS: Fluticasone/Vilanterol 200/25 BLST.W.DEV 1 PUFF INHALE (08:23)
[2025-01-04] MEDS: Tiotropium Bromide 2.5 mcg 1 PUFF/2.5 MCG MIST.INHAL INHALE (08:24)
[2025-01-04 08:25] VITALS: BP 110/72
[2025-01-04] MEDS: Loratadine 10 MG TABLET PO (08:25)
[2025-01-04] MEDS: HaloperidoL 5 MG TABLET 7.5 MG PO (08:25)
[2025-01-04] MEDS: Multivitamin TABLET 1 TAB PO (08:25)
[2025-01-04] MEDS: cloNIDine HCL 0.1 MG TABLET PO (08:25)
[2025-01-04] MEDS: DULoxetine HCl 30 MG CAPSULE.DR PO (08:25)
[2025-01-04] MEDS: DULoxetine HCl 60 MG CAPSULE.DR PO (08:25)
[2025-01-04] MEDS: Benztropine Mesylate 0.5 MG TABLET PO (08:26)
[2025-01-04] MEDS: Cholecalciferol (Vitamin D3) 25 MCG TABLET PO (08:26)
[2025-01-04] MEDS: Calcium + Vitamin D 250 MG TABLET 500 MG PO (09:57)
--- NOTE | 2025-01-04 10:49 | PM.PSYDC ---
DS: Providers Provider Date of Service: 01/04/25 Date of admission: 12/27/24 19:05 Date of discharge: 01/04/25 Primary care physician: Hafsa Holcomb NP Admitting clinician: Leelee Masters Attending physician on admission: Abdoul Silva Consults: 01/03/25 09:56 Consult to Hospitalist Routine Comment: Consulting Provider: [facility] Hospitalists Reason For Exam: ECT risk stratification - renewal Attending physician on discharge: Abdoul Silva Discharging clinician: Leelee Masters DS: Diagnosis Discharge Diagnosis (1) MDD (major depressive disorder), recurrent, severe, with psychosis: Status: Acute DS: Medications Discharge Medications Home Medications: Home Medications ?Medication ?Instructions ?Recorded ?Confirmed benztropine 0.5 mg tablet 0.5 mg PO BID 04/30/24 12/27/24 clonidine HCl 0.1 mg tablet 0.1 mg PO TID 04/30/24 12/27/24 omeprazole 20 mg capsule,delayed 20 mg PO Q OTHER DAY 04/30/24 12/27/24 release prazosin 5 mg capsule 15 mg PO BEDTIME 04/30/24 12/27/24 trazodone 100 mg tablet 200 mg PO BEDTIME insomnia 04/30/24 12/27/24 multivitamin 1 tab PO DAILY 05/17/24 12/27/24 zolpidem 10 mg tablet 10 mg PO BEDTIME insomnia 05/17/24 12/27/24 cholecalciferol (vitamin D3) 25 25 mcg PO DAILY 07/29/24 12/27/24 mcg (1,000 unit) tablet (Vitamin D3) haloperidol 5 mg tablet 5 mg PO TID 08/15/24 12/27/24 haloperidol decanoate 100 mg/mL 75 mg IM Q28D 08/15/24 12/27/24 intramuscular solution prazosin 1 mg capsule 1 mg PO BEDTIME 08/15/24 12/27/24 calcium 600 mg (as 1 tab PO BID 11/02/24 12/27/24 carbonate)-vitamin D3 10 mcg (400 unit) tablet fluticasone propionate 230 2 puff inhalation BID 11/02/24 12/27/24 mcg-salmeterol 21 mcg/actuation HFA inhaler (Advair HFA) cetirizine 10 mg tablet 10 mg PO DAILY 11/06/24 12/27/24 duloxetine 30 mg capsule,delayed 30 mg PO DAILY 11/06/24 12/27/24 release diphenhydramine HCl 50 mg capsule 100 mg PO BEDTIME insomnia 12/03/24 12/27/24 (Banophen) umeclidinium 62.5 mcg/actuation 1 inh inhalation DAILY 12/03/24 12/27/24 blister powder for inhalation (Incruse Ellipta) Previous Rx's ?Medication ?Instructions ?Recorded lorazepam 1 mg tablet 1 mg PO TID PRN anxiety/agitation 05/22/24 #0 tabs albuterol sulfate 90 mcg/actuation 2 puff inhalation Q4-6H PRN 08/30/24 aerosol inhaler shortness of breath or wheezing #6.7 grams duloxetine 60 mg capsule,delayed 60 mg PO DAILY 30 days #30 caps 10/03/24 release hydroxyzine HCl 50 mg tablet 50 mg PO Q6H PRN mild anxiety 30 10/03/24 days #90 tabs lithium carbonate 450 mg 900 mg (2 x 450 mg) PO BEDTIME 10/17/24 tablet,extended release days #60 tabs Mental Status Exam Mental Status Exam Narrative: Pt is alert and oriented; behavior is cooperative, friendly and calm; dressed in casual attire; mood is described as good ; eye contact appropriate; Speech is normal rate, volume and not pressured; thought process is organized; Thought content is on tx/discharge; denies SI/HI/VH. +AH which pt states is her baseline and is low at this time. DS: Summary Hospital Course Hospital Course: Patient is a 39-year-old female with history of MDD, PTSD, borderline personality disorder who presented to ER via ambulance from her correction due to increased flashbacks and vague suicidal ideation secondary to the anniversary of her sister's murder trial. Per crisis report, patient was brought in from her correction due to having flashbacks, feeling anxious and unsafe with vague suicidal ideation secondary to the anniversary of her sister's murder trial. History of multiple inpatient psychiatric hospitalizations. History of self-harming behaviors. Suicidal ideation at baseline. Command auditory hallucinations at baseline. Patient reported auditory hallucinations that are worse than her baseline. Patient reported that she wants to so that she can be with her sister . During admission assessment, patient presents alert and oriented x3. Calm and cooperative. Patient reports feeling anxious and depressed; patient stated, my sister's court date for her murder happened yesterday. The court date was stressing me out and I became suicidal . Patient reports having auditory hallucinations telling her to kill herself and that she deserves to be . She reports suicidal ideation with plan to run in front of a car . Patient reports she has been receiving ECT treatments every other week and was to receive a treatment last week but needed to be medically cleared so she was unable to; patient is requesting to have ECT while she is inpatient. Patient was seen 12/28/24 at 1100. 1:1 safety checks. She continues to report feeling depressed and having suicidal ideation with no plan. Pt reports she will try to attend groups today. +AH; pt stated she is trying to block them out . denies HI/VH. Continue current tx plan. Increase Haldol oral from 5 mg 3 times per day to 7.5 mg 3 times per day for command auditory hallucinations. Maintain one-to-one observation Haldol just increased. Consider increased tylenol, tramadol or other non-NSAID for back pain cut self superficially with foil seal on juice bottle. unsafe at present, missing her sister a lot. continue on 1:1, keep safe, PRNs for agit/anxiety. pt requesting ECT. feeling better than yesterday. talking outpt ECT and dispo planning. continue current mgmt. 1:1 at bedside. Patient is requesting to be discharged home. Pt stated, I'm feeling better. I want to go home . Pt reports her mood is improved. denies SI/HI/VH. Continues to report auditory hallucinations which she has at baseline; pt stated, the voices are fine . Plans on discharging home tomorrow and following up with her outpatient providers. Pt continues to report feeling good and looking forward to returning home. denies SI/HI/VH. Continues to report minimal auditory hallucinations. Pt plans on following up with her outpatient providers. Status at Discharge Cognitive/behavioral status at discharge: Patient has insight and demonstrates good judgment in terms of wanting to pursue treatment. Patient has a safety plan that includes presenting to the closest ER or calling 911 if feeling unsafe. Functional status at discharge: independent ambulation Overall status at discharge: patient is back to baseline Time Spent with Patient Time attestation: Total time managing care of this patient today _20___ minutes. Time spent: Less than 30 minutes Discharge Plan Discharge Anticipated Discharge Date/Time: 01/04/25 08:51 Patient Disposition: Home, Self-Care Discharge Diagnosis: MDD, PTSD, Borderline personality d/o Referrals: Kemi [facility] (Psychiatry) [Other] - 01/09/25 2:00 pm (IN OFFICE APPOINTMENT) ACCS [Other] - 1 Week (*Please follow up with your ACCS team through [facility]. ) ECT [Other] - 01/22/25 Rosi Nogueira (Therapy) [Other] - 01/11/25 1:00 pm (IN OFFICE APPOINTMENT) Hafsa Holcomb NP [Primary Care Provider] - 1 Week (01-03-25 Your primary care provider has been notified of your discharge. They will call back with the date and time of the follow up appt.) Discharge Medications: Continued clonidine HCl 0.1 mg tablet 0.1 mg PO TID Rx Instructions: takes at 0800, 1400 and 1999 benztropine 0.5 mg tablet 0.5 mg PO BID prazosin 5 mg capsule 15 mg PO BEDTIME trazodone 100 mg tablet 200 mg PO BEDTIME omeprazole 20 mg capsule,delayed release(DR/EC) 20 mg PO Q OTHER DAY cholecalciferol (vitamin D3) [Vitamin D3] 25 mcg (1,000 unit) tablet 25 mcg PO DAILY haloperidol 5 mg tablet 5 mg PO TID prazosin 1 mg capsule 1 mg PO BEDTIME haloperidol decanoate 100 mg/mL solution 75 mg IM Q28D albuterol sulfate 90 mcg/actuation HFA aerosol inhaler 2 puff inhalation Q4-6H PRN (Reason: shortness of breath or wheezing) Qty: 6.7 0RF hydroxyzine HCl 50 mg Tablet 50 mg PO Q6H PRN (Reason: mild anxiety) 30 Days Qty: 90 0RF duloxetine 60 mg capsule,delayed release(DR/EC) 60 mg PO DAILY 30 Days Qty: 30 0RF Rx Instructions: take with 30mg capsule diphenhydramine HCl [Banophen] 50 mg capsule 100 mg PO BEDTIME Incruse Ellipta 62.5 mcg/actuation blister with device 1 inh INHALATION DAILY zolpidem 10 mg tablet 10 mg PO BEDTIME multivitamin Tablet 1 tab PO DAILY lorazepam 1 mg Tablet 1 mg PO TID PRN (Reason: anxiety/agitation) Qty: 0 0RF lithium carbonate 450 mg Tablet Extended Release 900 mg PO BEDTIME 30 Days Qty: 60 0RF fluticasone propion-salmeterol [Advair HFA] 230-21 mcg/actuation HFA aerosol inhaler 2 puff INHALATION BID calcium carbonate-vitamin D3 600 mg-10 mcg (400 unit) tablet 1 tab PO BID cetirizine 10 mg tablet 10 mg PO DAILY duloxetine 30 mg capsule,delayed release(DR/EC) 30 mg PO DAILY Discharge Orders: Discharge Order (Routine); Ordered 01/04/25 Ordered By: Leelee Masters Diet: Regular diet Activity on Discharge: As tolerated Stand Alone Forms: Patient Portal Discharge page, Community Support Print Language: Comoran Care Plan Goals: Maintain mood and safe behaviors Take medications as prescribed Practice coping skills Continue with outpatient providers and reach out to them as needed Health Concerns: Mood stability and behaviors Plan of Treatment: Follow up with your PCP, psychiatric provider and other outpatient providers regarding above concerns Take medications as prescribed Assessment: Patient has insight and demonstrates good judgment in terms of wanting to pursue treatment. Patient has a safety plan that includes presenting to the closest ER or calling 911 if feeling unsafe.
[2025-01-04] MEDS: Acetaminophen 325 MG TABLET 650 MG PO (11:52)
[2025-01-04] MEDS: Haloperidol Decanoate 50 MG/ML VIAL 75 MG IM (12:07)
--- NOTE | 2025-01-04 13:57 | PC.NURSE ---
Patient easily engaged. Reports she had been freaking out a lot prior to admission, feels hospitalization was helpful to stabilize mood. Reports voices aren't as heavy . Denies SI/HI at this time. Denies self harming ideation. Discharge paperwork reviewed with patient, reports understanding. Discharge appointments reviewed reports understanding. Discharge medications reviewed with patient reports understanding, states she has help with medications at residence. All belongings taken with patient. Crisis numbers provided to patient.
== END 2025-01-04 13:42 | disposition home or self-care (01) | DRG 751 ==
LOC: HO.ED 19:50 → HO.PADLT16 12-27 19:11
PROVIDERS: Admitting Provider Psychiatry & Neurology Psychiatry; Emergency Provider Emergency Medicine; PCP Nurse Practitioner Family; Responsible Provider Registered Nurse; Visit Provider Psychiatry & Neurology Psychiatry
DX: F33.3 Major depressive disorder, recurrent, severe with psychotic symptoms (principal); R45.851 Suicidal ideations; F43.12 Post-traumatic stress disorder, chronic; J44.9 Chronic obstructive pulmonary disease, unspecified; F60.3 Borderline personality disorder; Z63.4 Disappearance and death of family member; Z79.899 Other long term (current) drug therapy
CPT/HCPCS: 36415; 80048; 80076; 80143; 80179; 80307; 81003; 84702; 85025; 93005; 99285; J1631; S9485

== ENCOUNTER → 2024-12-27 17:00 | Outpatient (BNV) | payer OTHER, SELFPAY | PROVIDERS: Admitting Provider Psychiatry & Neurology Psychiatry; Emergency Provider Emergency Medicine; PCP Nurse Practitioner Family; Visit Provider Internal Medicine Cardiovascular Disease | DX: R94.31 Abnormal electrocardiogram [ECG] [EKG] (principal) | CPT/HCPCS: 93010 ==

== ENCOUNTER 2024-12-27 19:05 | Outpatient (BNV) | payer OTHER, SELFPAY | END 2025-01-03 16:23 | PROVIDERS: Admitting Provider Psychiatry & Neurology Psychiatry; Emergency Provider Emergency Medicine; PCP Nurse Practitioner Family; Responsible Provider Registered Nurse; Visit Provider Internal Medicine Cardiovascular Disease | DX: R94.31 Abnormal electrocardiogram [ECG] [EKG] (principal); Z13.6 Encounter for screening for cardiovascular disorders | CPT/HCPCS: 93010 ==

== ENCOUNTER → 2024-12-27 19:05 | Outpatient (BNV) | payer OTHER, SELFPAY | PROVIDERS: Admitting Provider Psychiatry & Neurology Psychiatry; Emergency Provider Emergency Medicine; PCP Nurse Practitioner Family; Responsible Provider Registered Nurse; Visit Provider Psychiatry & Neurology Psychiatry | DX: F60.3 Borderline personality disorder (principal); F33.3 Major depressive disorder, recurrent, severe with psychotic symptoms; F43.12 Post-traumatic stress disorder, chronic | CPT/HCPCS: 99231; 99232; 99233 ==

== ENCOUNTER → 2024-12-27 19:05 | Outpatient (BNV) | payer OTHER, SELFPAY | PROVIDERS: Admitting Provider Psychiatry & Neurology Psychiatry; Emergency Provider Emergency Medicine; PCP Nurse Practitioner Family; Responsible Provider Registered Nurse; Visit Provider Nurse Practitioner Family | DX: Z00.8 Encounter for other general examination (principal) | CPT/HCPCS: 99429 ==

== ENCOUNTER 2025-01-22 05:46 | Day surgery (SDC) | payer OTHER, SELFPAY ==
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
[2025-01-22] VITALS (7 sets, daily range): BP systolic 112–138; BP diastolic 64–82; PULSE 67–86; RESP 16–18; TEMP 36.2–37.4; O2SAT 97–100; BMI 41.6
[2025-01-22] MEDS: Lactated Ringers 1,000 ML 100 ML IVCONT (06:26)
--- NOTE | 2025-01-22 06:59 | MHC.SHP ---
Pre-Procedural Eval Section A - 24 Hr Update-Section A only Date of Service: 01/22/25 Section B - Complete if H&P > 30 days Chief Complaint: Major depressive disorder, recurrent, severe with Relevant Family History (Specify if Yes): No Relevant Social History: None Medical History: No relevant PMH Allergies: Allergies Allergy/AdvReac Type Severity Reaction Status Date / Time carbamazepine [From TEGRETOL] AdvReac Mild Nausea and Verified 12/26/24 19:43 Vomiting topiramate [From Topamax] AdvReac Mild Nausea and Verified 12/26/24 19:43 Vomiting Review of Systems Sugical H&P ROS: Negative: Constitution, Cardiovascular, Respiratory, Neurological, Hem-Onc, Allergic/Immunologic, Gastrointestinal, Genitourinary, Musculoskeletal, Integumentary, Endocrine and Eyes/Ears/Nose/Throat Exam Surgical H&P Exam: Normal: HEENT and Normal: Neurological Plan Diagnosis/Plan: Unchanged I have reviewed the history and physical and performed a pertinent physical examination on my patient. No changes have occurred unless specified. Time Spent With Patient Time: Total time managing care of this patient today __30__ minutes.
--- NOTE | 2025-01-22 07:37 | HO.ECTPROC ---
ECT Procedure Note Diagnosis/Treatment Date of Service: 01/22/25 Diagnosis: Schizoaffective Disorder Previous ECT Date: 11/27/24 Treatment: Maintenance Interval Clinical Notes: reported no substantial events since last leaving the hospital Time: Total time managing care of this patient today __30__ minutes. ECT Settings Device: THYMATRON DGx Electrode Placement: Bitemporal Program/Pulse Width: 0.50 Energy Percent: 100 Seizure Duration By EEG (in seconds): 29 Medications Administration General Anesthetic: Etomidate (14) Muscle Relaxant: Succinylcholine (80) Ancillary Medications Anti-emetics: Zofran - Pre ECT Miscillaneous Medications: Propofol Airway Management Airway Management: Bag Mask Ventilation Treatment Recommendations No Changes Recommended: No change Notes: RTC in 2 weeks Pt Tolerated Procedure w/o Issue: Yes
--- NOTE | 2025-01-22 08:13 | P.CONAN_ITS ---
[facility] Active Problems Active Problems: All Active Problems Chronic post-traumatic stress disorder (PTSD) (Acute) MDD (major depressive disorder), recurrent, severe, with psychosis (Acute) Osteoarthritis of right knee (Acute) Chronic post-traumatic stress disorder (PTSD) (Chronic) Borderline personality disorder (Chronic) Auditory hallucinations (Acute) Port-A-Cath in place (Acute) Intentional self-harm (Acute) COPD (chronic obstructive pulmonary disease) (Acute) Asthma (Acute) Adjustment disorder (Acute) Injury of ligament of right knee (Acute) Sprain of anterior cruciate ligament of right knee (Acute) Hernia (Chronic) Increased BMI (Acute) GERD (gastroesophageal reflux disease) (Acute) Past Medical History Medical History Depression Schizoaffective disorder, depressive type Depression with suicidal ideation MDD (major depressive disorder), recurrent, severe, with psychosis Port-A-Cath in place History of electroconvulsive therapy COVID-19 COVID-19 Sprain of left foot Chronic post-traumatic stress disorder (PTSD) COPD (chronic obstructive pulmonary disease) Increased BMI GERD (gastroesophageal reflux disease) Recurrent major depression-severe Acute post-traumatic stress disorder Injury, self-inflicted Suicidal ideation Self-harming behavior Intentional self-harm Suicidal ideation Borderline personality disorder Schizoaffective disorder Adjustment disorder Asthma Depression Anxiety PTSD (post-traumatic stress disorder) Family History Family History Mother Brain cancer Other No family history of cardiac disease Family history of problems with anesthesia: No Surgical History History of Problems with Anesthesia: No Social History Social History Household Members: Other Household Members Other:: [employer] Housing: Other Housing Other:: [employer] Do you presently have visiting nurse or other home services: No Unable to assess alcohol history related to: Unable to respond Alcohol intake: current Alcohol intake frequency: does not drink Patient Tobacco Use Status: Never used Tobacco Tobacco use type: Cigarette Cigarette Packs Per Day: 0.5 Cigarettes Per Day: 8 Years Smoked: 20 e-Cigarette/Vaping Use: Never Used Second Hand Smoke Exposure: No Substance Use Type: Marijuana service: No Current occupation: rt handed Sexual orientation: Straight/Heterosexual Meds Allergies Allergy/AdvReac Type Severity Reaction Status Date / Time carbamazepine [From TEGRETOL] AdvReac Mild Nausea and Verified 12/26/24 19:43 Vomiting topiramate [From Topamax] AdvReac Mild Nausea and Verified 12/26/24 19:43 Vomiting Active Medications: Current Medications Lactated Ringer's (Lr) 1,000 mls @ 100 mls/hr IVCONT .Q10H SULEIMAN Last Admin: 01/22/25 06:26 Dose: 100 mls/hr Home Medications ?Medication ?Instructions ?Recorded ?Confirmed ?Last Taken ?Type benztropine 0.5 mg tablet 0.5 mg PO BID 04/30/24 12/27/24 12/06/24 20:00 History clonidine HCl 0.1 mg tablet 0.1 mg PO TID 04/30/24 12/27/24 12/06/24 20:00 History omeprazole 20 mg capsule,delayed 20 mg PO Q OTHER DAY 04/30/24 12/27/24 10/05/24 History release prazosin 5 mg capsule 15 mg PO BEDTIME 04/30/24 12/27/24 12/06/24 20:00 History trazodone 100 mg tablet 200 mg PO BEDTIME insomnia 04/30/24 12/27/24 10/05/24 History multivitamin 1 tab PO DAILY 05/17/24 12/27/24 12/06/24 08:00 History zolpidem 10 mg tablet 10 mg PO BEDTIME insomnia 05/17/24 12/27/24 12/06/24 20:00 History cholecalciferol (vitamin D3) 25 25 mcg PO DAILY 07/29/24 12/27/24 12/06/24 08:00 History mcg (1,000 unit) tablet (Vitamin D3) haloperidol 5 mg tablet 5 mg PO TID 08/15/24 12/27/24 12/06/24 20:00 History haloperidol decanoate 100 mg/mL 75 mg IM Q28D 08/15/24 12/27/24 10/05/24 History intramuscular solution prazosin 1 mg capsule 1 mg PO BEDTIME 08/15/24 12/27/24 12/06/24 20:00 History calcium 600 mg (as 1 tab PO BID 11/02/24 12/27/24 12/06/24 20:00 History carbonate)-vitamin D3 10 mcg (400 unit) tablet fluticasone propionate 230 2 puff inhalation BID 11/02/24 12/27/24 12/06/24 20:00 History mcg-salmeterol 21 mcg/actuation HFA inhaler (Advair HFA) cetirizine 10 mg tablet 10 mg PO DAILY 11/06/24 12/27/24 12/06/24 08:00 History duloxetine 30 mg capsule,delayed 30 mg PO DAILY 11/06/24 12/27/24 12/06/24 09:00 History release diphenhydramine HCl 50 mg capsule 100 mg PO BEDTIME insomnia 12/03/24 12/27/24 12/06/24 20:00 History (Banophen) umeclidinium 62.5 mcg/actuation 1 inh inhalation DAILY 12/03/24 12/27/24 12/06/24 08:00 History blister powder for inhalation (Incruse Ellipta) Exam Height,Weight and Vital Signs: Height 4 ft 11 in Weight 93.44 kg Last Vital Signs Temp 97.2 F 01/22/25 08:10 Pulse 79 01/22/25 08:10 Resp 18 01/22/25 08:10 BP 122/73 01/22/25 08:10 Pulse Ox 99 01/22/25 08:10 O2 Del Method Room Air 01/22/25 08:10 O2 Flow Rate 2 01/22/25 08:10 Airway Mallampati Class: III TM Dist: >3cm Neck ROM: Full Loose/Missing/Broken Teeth: Yes, Upper and Lower Assessment and Plan Assessment Anesthesia Assessment: Anesthesia Plan Discussed and Chart Reviewed Final Anesthetic Review Family History of Problems with Anesthesia: No History of Problems with Anesthesia: No NPO: Yes ASA Class: III Final Preanesthetic Review: No Changes in Pt Med Stat, Meds/Allgs Chart Reviewed, Consent Obtained/Reviewed and Anes Risks/Benef Reviewed Patient Risk: Intermediate Procedure Risk: Low Anesthetic Plan Anesthetic Plan: GA Disposition: Standard PACU
== END 2025-01-22 09:18 | disposition home or self-care (01) ==
PROVIDERS: PCP Nurse Practitioner Family; Visit Provider Psychiatry & Neurology Psychiatry
PROC: (CPT 90870; principal; 2025-01-22 07:30)
DX: F25.1 Schizoaffective disorder, depressive type (principal); F60.3 Borderline personality disorder; F43.11 Post-traumatic stress disorder, acute; R45.851 Suicidal ideations; J44.9 Chronic obstructive pulmonary disease, unspecified; K21.9 Gastro-esophageal reflux disease without esophagitis; Z79.51 Long term (current) use of inhaled steroids; Z79.899 Other long term (current) drug therapy; Z88.8 Allergy status to other drugs, medicaments and biological substances
CPT/HCPCS: 90870; J0330; J1642; J2405; J2704

== ENCOUNTER → 2025-01-22 05:46 | Outpatient (BNV) | payer OTHER, SELFPAY | PROVIDERS: PCP Nurse Practitioner Family; Visit Provider Psychiatry & Neurology Psychiatry | DX: F33.3 Major depressive disorder, recurrent, severe with psychotic symptoms (principal) | CPT/HCPCS: 90870 ==

== ENCOUNTER 2025-02-05 05:58 | Day surgery (SDC) | payer OTHER, SELFPAY ==
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
[2025-02-05] VITALS (7 sets, daily range): BP systolic 112–121; BP diastolic 68–81; PULSE 72–89; RESP 16–20; TEMP 36.4–36.6; O2SAT 95–99; BMI 38.6
--- NOTE | 2025-02-05 06:59 | MHC.SHP ---
Pre-Procedural Eval Section A - 24 Hr Update-Section A only Date of Service: 02/05/25 Section B - Complete if H&P > 30 days Chief Complaint: depression Details of Present Illness: chronic depression/PTSD; maintenance Tx Allergies: Allergies Allergy/AdvReac Type Severity Reaction Status Date / Time carbamazepine (From TEGRETOL) AdvReac Mild Nausea and Verified 12/26/24 19:43 Vomiting topiramate (From Topamax) AdvReac Mild Nausea and Verified 12/26/24 19:43 Vomiting Review of Systems Sugical H&P ROS: Negative: Constitution, Respiratory, Neurological, Gastrointestinal and Musculoskeletal and Yes, Specify: Psychiatric (reports doing well recently) and Integumentary (scars from SIB) Exam Surgical H&P Exam: Normal: HEENT, Normal: Extremities (scars from cutting) and Normal: Neurological Plan Diagnosis/Plan: Unchanged I have reviewed the history and physical and performed a pertinent physical examination on my patient. No changes have occurred unless specified. Time Spent With Patient Time: Total time managing care of this patient today __30__ minutes.
[2025-02-05 07:25] LABS: UPreg QC Valid YES; Urine Pregnancy NEGATIVE (NEGATIVE)
--- NOTE | 2025-02-05 07:27 | HO.ANESPROP2 ---
[facility] Active Problems Active Problems: All Active Problems (Updated 01/12/25 @ 00:02 by Adiel Sevilla) Chronic post-traumatic stress disorder (PTSD) (Acute) MDD (major depressive disorder), recurrent, severe, with psychosis (Acute) Osteoarthritis of right knee (Acute) Chronic post-traumatic stress disorder (PTSD) (Chronic) Borderline personality disorder (Chronic) Auditory hallucinations (Acute) Port-A-Cath in place (Acute) Intentional self-harm (Acute) COPD (chronic obstructive pulmonary disease) (Acute) Asthma (Acute) Adjustment disorder (Acute) Injury of ligament of right knee (Acute) Sprain of anterior cruciate ligament of right knee (Acute) Hernia (Chronic) Increased BMI (Acute) GERD (gastroesophageal reflux disease) (Acute) Past Medical History Medical History Depression Schizoaffective disorder, depressive type Depression with suicidal ideation MDD (major depressive disorder), recurrent, severe, with psychosis Port-A-Cath in place History of electroconvulsive therapy COVID-19 COVID-19 Sprain of left foot Chronic post-traumatic stress disorder (PTSD) COPD (chronic obstructive pulmonary disease) Increased BMI GERD (gastroesophageal reflux disease) Recurrent major depression-severe Acute post-traumatic stress disorder Injury, self-inflicted Suicidal ideation Self-harming behavior Intentional self-harm Suicidal ideation Borderline personality disorder Schizoaffective disorder Adjustment disorder Asthma Depression Anxiety PTSD (post-traumatic stress disorder) Family History Family History Mother Brain cancer Other No family history of cardiac disease Family history of problems with anesthesia: No Surgical History History of Problems with Anesthesia: No Social History Social History Household Members: Other Household Members Other:: [employer] Housing: Other Housing Other:: [employer] Do you presently have visiting nurse or other home services: No Unable to assess alcohol history related to: Unable to respond Alcohol intake: current Alcohol intake frequency: does not drink Patient Tobacco Use Status: Never used Tobacco Tobacco use type: Cigarette Cigarette Packs Per Day: 0.5 Cigarettes Per Day: 8 Years Smoked: 20 e-Cigarette/Vaping Use: Never Used Second Hand Smoke Exposure: No Substance Use Type: Marijuana Advance Directives: No Advance Directives Information Provided: Yes service: No Current occupation: rt handed Sexual orientation: Straight/Heterosexual Meds Allergies Allergy/AdvReac Type Severity Reaction Status Date / Time carbamazepine (From TEGRETOL) AdvReac Mild Nausea and Verified 12/26/24 19:43 Vomiting topiramate (From Topamax) AdvReac Mild Nausea and Verified 12/26/24 19:43 Vomiting Active Medications: Current Medications Lactated Ringer's (Lr) 1,000 mls @ 100 mls/hr IVCONT .Q10H SULEIMAN Last Admin: 01/22/25 06:26 Dose: 100 mls/hr Home Medications ?Medication ?Instructions ?Recorded ?Confirmed ?Last Taken ?Type benztropine 0.5 mg tablet 0.5 mg PO BID 04/30/24 12/27/24 12/06/24 20:00 History clonidine HCl 0.1 mg tablet 0.1 mg PO TID 04/30/24 12/27/24 12/06/24 20:00 History omeprazole 20 mg capsule,delayed 20 mg PO Q OTHER DAY 04/30/24 12/27/24 10/05/24 History release prazosin 5 mg capsule 15 mg PO BEDTIME 04/30/24 12/27/24 12/06/24 20:00 History trazodone 100 mg tablet 200 mg PO BEDTIME insomnia 04/30/24 12/27/24 10/05/24 History multivitamin 1 tab PO DAILY 05/17/24 12/27/24 12/06/24 08:00 History zolpidem 10 mg tablet 10 mg PO BEDTIME insomnia 05/17/24 12/27/24 12/06/24 20:00 History cholecalciferol (vitamin D3) 25 25 mcg PO DAILY 07/29/24 12/27/24 12/06/24 08:00 History mcg (1,000 unit) tablet (Vitamin D3) haloperidol 5 mg tablet 5 mg PO TID 08/15/24 12/27/24 12/06/24 20:00 History haloperidol decanoate 100 mg/mL 75 mg IM Q28D 08/15/24 12/27/24 10/05/24 History intramuscular solution prazosin 1 mg capsule 1 mg PO BEDTIME 08/15/24 12/27/24 12/06/24 20:00 History calcium 600 mg (as 1 tab PO BID 11/02/24 12/27/24 12/06/24 20:00 History carbonate)-vitamin D3 10 mcg (400 unit) tablet fluticasone propionate 230 2 puff inhalation BID 11/02/24 12/27/24 12/06/24 20:00 History mcg-salmeterol 21 mcg/actuation HFA inhaler (Advair HFA) cetirizine 10 mg tablet 10 mg PO DAILY 11/06/24 12/27/24 12/06/24 08:00 History duloxetine 30 mg capsule,delayed 30 mg PO DAILY 11/06/24 12/27/24 12/06/24 09:00 History release diphenhydramine HCl 50 mg capsule 100 mg PO BEDTIME insomnia 12/03/24 12/27/24 12/06/24 20:00 History (Banophen) umeclidinium 62.5 mcg/actuation 1 inh inhalation DAILY 12/03/24 12/27/24 12/06/24 08:00 History blister powder for inhalation (Incruse Ellipta) Exam Height,Weight and Vital Signs: Height 4 ft 11 in Weight 191 lb Last Vital Signs Temp 97.9 F 02/05/25 07:06 Pulse 89 02/05/25 07:06 Resp 16 02/05/25 07:06 BP 119/75 02/05/25 07:06 Pulse Ox 99 02/05/25 07:06 O2 Del Method Room Air 02/05/25 07:06 Pertinent Lab Results Pertinent Lab Results: Laboratory Tests 02/05/25 06:00 Urine Test NEGATIVE Airway Mallampati Class: III TM Dist: >3cm Neck ROM: Full Loose/Missing/Broken Teeth: Yes, Upper and Lower Assessment and Plan Assessment Anesthesia Assessment: Anesthesia Plan Discussed and Chart Reviewed Final Anesthetic Review Family History of Problems with Anesthesia: No History of Problems with Anesthesia: No NPO: Yes ASA Class: III Final Preanesthetic Review: No Changes in Pt Med Stat, Meds/Allgs Chart Reviewed, Consent Obtained/Reviewed and Anes Risks/Benef Reviewed Patient Risk: Intermediate Procedure Risk: Low Anesthetic Plan Anesthetic Plan: GA Disposition: Standard PACU
--- NOTE | 2025-02-05 07:35 | HO.ECTPROC ---
ECT Procedure Note Diagnosis/Treatment Date of Service: 02/05/25 Diagnosis: Major Depressive Disorder Previous ECT Date: 01/22/25 Treatment: Maintenance Interval Clinical Notes: reports has been doing well in recent weeks. no changes in medical or psychiatric status. Time: Total time managing care of this patient today _30___ minutes. ECT Settings Device: THYMATRON DGx Electrode Placement: Bitemporal Program/Pulse Width: 0.50 Energy Percent: 100 Seizure Duration By EEG (in seconds): 20 Medications Administration General Anesthetic: Etomidate (14) Muscle Relaxant: Succinylcholine (80) Ancillary Medications Anti-emetics: Zofran - Post ECT Miscillaneous Medications: Propofol Airway Management Airway Management: Bag Mask Ventilation Treatment Recommendations No Changes Recommended: No change Pt Tolerated Procedure w/o Issue: Yes
== END 2025-02-05 09:53 | disposition home or self-care (01) ==
PROVIDERS: PCP Nurse Practitioner Family; Visit Provider Psychiatry & Neurology Psychiatry
PROC: (CPT 90870; principal; 2025-02-05 07:00)
DX: F33.3 Major depressive disorder, recurrent, severe with psychotic symptoms (principal); Z32.02 Encounter for pregnancy test, result negative; F43.12 Post-traumatic stress disorder, chronic; F60.3 Borderline personality disorder; J44.9 Chronic obstructive pulmonary disease, unspecified; K21.9 Gastro-esophageal reflux disease without esophagitis; Z79.51 Long term (current) use of inhaled steroids; Z79.899 Other long term (current) drug therapy; Z88.8 Allergy status to other drugs, medicaments and biological substances
CPT/HCPCS: 81025; 90870; J0330; J1642; J2405; J2704

== ENCOUNTER → 2025-02-05 05:58 | Outpatient (BNV) | payer OTHER, SELFPAY | PROVIDERS: PCP Nurse Practitioner Family; Visit Provider Psychiatry & Neurology Psychiatry | DX: F33.3 Major depressive disorder, recurrent, severe with psychotic symptoms (principal) | CPT/HCPCS: 90870 ==

== ENCOUNTER 2025-02-07 18:01 | Emergency (ER) | payer OTHER, SELFPAY ==
--- NOTE | ~2025-02-07 | XR_ITS ---
CLINICAL HISTORY: fall 4 view right knee Comparison: DX/WA/SR - XR KNEE RT 3V - 06/13/24 13:49 EDT Findings: No Acute fracture. No dislocation. Early degenerative changes. No erosions. No joint effusion. Stable small calcification in /overlying suprapatellar bursa. No radiopaque foreign body. Possible infrapatellar anterior soft tissue swelling. IMPRESSION: 1. No acute fracture or dislocation. 2. Stable small calcification in/overlying suprapatellar bursa. 3. Possible infrapatellar anterior soft tissue swelling. This document has been electronically signed by: Ni Chauhan MD on 02/07/2025 19:07:51
--- NOTE | ~2025-02-07 | XR_ITS ---
CLINICAL HISTORY: fall 3 view right ankle Comparison: None provided Findings: No Acute fracture. No dislocation. Ankle mortise is intact. Plantar calcaneal enthesophyte. No significant arthritic change or erosions. No ankle effusion. No radiopaque foreign body. IMPRESSION: 1. No acute findings. This document has been electronically signed by: Ni Chauhan MD on 02/07/2025 19:00:26
[2025-02-07 18:20] VITALS: BP 106/85; PULSE 108; RESP 16; TEMP 36.1; O2SAT 95; BMI 39.4
--- NOTE | 2025-02-07 18:20 | ED.GENADULT ---
HPI - General Adult General Chief complaint: Fall Stated complaint: rt leg and knee; left leg & Knee injury fall Time Seen by Provider: 02/07/25 18:34 Source: patient Mode of arrival: ambulatory Limitations: no limitations History of Present Illness ED Provider: Sofía Ortega NP HPI narrative: Patient is a 31-year-old female who presents emergency department for evaluation she reports a mechanical slip and fall down approximately 4 stairs. Reports that she bumped her head on the rail but did not strike hard, there was no associated loss of consciousness and she denies use of anticoagulants. She has no headache dizziness lightheadedness vision changes or neck pain. Her primary concern today is pain to her right knee, she also was experiencing pain to her right ankle. Reports a history of chronic right knee pain but has increased since the fall. Denies any numbness tingling or cold sensation to the extremity. Related Data Home Medications ?Medication ?Instructions ?Recorded ?Confirmed benztropine 0.5 mg tablet 0.5 mg PO BID 04/30/24 12/27/24 clonidine HCl 0.1 mg tablet 0.1 mg PO TID 04/30/24 12/27/24 omeprazole 20 mg capsule,delayed 20 mg PO Q OTHER DAY 04/30/24 12/27/24 release prazosin 5 mg capsule 15 mg PO BEDTIME 04/30/24 12/27/24 trazodone 100 mg tablet 200 mg PO BEDTIME insomnia 04/30/24 12/27/24 multivitamin 1 tab PO DAILY 05/17/24 12/27/24 zolpidem 10 mg tablet 10 mg PO BEDTIME insomnia 05/17/24 12/27/24 cholecalciferol (vitamin D3) 25 25 mcg PO DAILY 07/29/24 12/27/24 mcg (1,000 unit) tablet (Vitamin D3) haloperidol 5 mg tablet 5 mg PO TID 08/15/24 12/27/24 haloperidol decanoate 100 mg/mL 75 mg IM Q28D 08/15/24 12/27/24 intramuscular solution prazosin 1 mg capsule 1 mg PO BEDTIME 08/15/24 12/27/24 calcium 600 mg (as 1 tab PO BID 11/02/24 12/27/24 carbonate)-vitamin D3 10 mcg (400 unit) tablet fluticasone propionate 230 2 puff inhalation BID 11/02/24 12/27/24 mcg-salmeterol 21 mcg/actuation HFA inhaler (Advair HFA) cetirizine 10 mg tablet 10 mg PO DAILY 11/06/24 12/27/24 duloxetine 30 mg capsule,delayed 30 mg PO DAILY 11/06/24 12/27/24 release diphenhydramine HCl 50 mg capsule 100 mg PO BEDTIME insomnia 12/03/24 12/27/24 (Banophen) umeclidinium 62.5 mcg/actuation 1 inh inhalation DAILY 12/03/24 12/27/24 blister powder for inhalation (Incruse Ellipta) Previous Rx's ?Medication ?Instructions ?Recorded lorazepam 1 mg tablet 1 mg PO TID PRN anxiety/agitation 05/22/24 #0 tabs albuterol sulfate 90 mcg/actuation 2 puff inhalation Q4-6H PRN 08/30/24 aerosol inhaler shortness of breath or wheezing #6.7 grams duloxetine 60 mg capsule,delayed 60 mg PO DAILY 30 days #30 caps 10/03/24 release hydroxyzine HCl 50 mg tablet 50 mg PO Q6H PRN mild anxiety 30 10/03/24 days #90 tabs lithium carbonate 450 mg 900 mg (2 x 450 mg) PO BEDTIME 30 10/17/24 tablet,extended release days #60 tabs Allergies Allergy/AdvReac Type Severity Reaction Status Date / Time carbamazepine (From TEGRETOL) AdvReac Mild Nausea and Verified 02/07/25 18:21 Vomiting topiramate (From Topamax) AdvReac Mild Nausea and Verified 02/07/25 18:21 Vomiting Review of Systems Review of Systems: Yes all other systems are reviewed and are negative PMFSH Past Medical History Attestation statement: The following information was validated with the patient. Source: old records reviewed Medical History Depression Schizoaffective disorder, depressive type Depression with suicidal ideation MDD (major depressive disorder), recurrent, severe, with psychosis Port-A-Cath in place History of electroconvulsive therapy COVID-19 COVID-19 Sprain of left foot Chronic post-traumatic stress disorder (PTSD) COPD (chronic obstructive pulmonary disease) Increased BMI GERD (gastroesophageal reflux disease) Recurrent major depression-severe Acute post-traumatic stress disorder Injury, self-inflicted Suicidal ideation Self-harming behavior Intentional self-harm Suicidal ideation Borderline personality disorder Schizoaffective disorder Adjustment disorder Asthma Depression Anxiety PTSD (post-traumatic stress disorder) Family History Family History Mother Brain cancer Other No family history of cardiac disease Social History Social History Household Members: Other Household Members Other:: [employer] Housing: Other Housing Other:: [employer] Do you presently have visiting nurse or other home services: No Unable to assess alcohol history related to: Unable to respond Alcohol intake: current Alcohol intake frequency: does not drink Patient Tobacco Use Status: Never used Tobacco Tobacco use type: Cigarette Cigarette Packs Per Day: 0.5 Cigarettes Per Day: 8 Years Smoked: 20 e-Cigarette/Vaping Use: Never Used Second Hand Smoke Exposure: No Substance Use Type: Marijuana Advance Directives: No Advance Directives Information Provided: Yes service: No Current occupation: rt handed Sexual orientation: Straight/Heterosexual Physical Exam ED Vital Signs: Vital Signs - 24 hr 02/07/25 18:20 02/07/25 19:51 Temperature 96.9 F 96.9 F Pulse Rate 108 H 73 Respiratory Rate 16 16 Blood Pressure 106/85 132/68 Pulse Oximetry 95 Oxygen Delivery Method Room Air Room Air BMI result Body Mass Index 39.4 Appearance: Alert.?Oriented to person, place and time. No acute distress.?Normal affect. Head: Normocephalic, atraumatic Eyes: Pupils equal, round and reactive to light.? EOMI. No nystagmus. ENT: Pharynx normal.?? Neck: Normal inspection.? Neck supple.?? CVS: Heart sounds normal. Normal heart rate and rhythm.? Pulses normal.?? Respiratory: No respiratory distress.? Lung sounds clear to auscultation bilaterally?? Skin: Skin warm and dry.? Normal skin color.? Extremities: No lower extremity edema.? No calf ttp. no acute deformity to the right knee or ankle. No effusion. No laxity on examination, anterior and posterior drawer test negative. Valgus and varus stress test negative. 2+ DP/PT pulse. Full range of motion to the right knee and right ankle. Neuro: Moves all extremities spontaneously. Sensation intact bilaterally. Ambulates with antalgic gait Course Course Course Narrative: This is an RME: Additional HPI, ROS, PE not included below will be deferred to primary provider. RME assessment and note performed by: Graham Jama PA-C 39-year-old female here due to right ankle and knee pain after mechanical slip and fall down 5 stairs. Denies LOC, no AC. PE: Full ROM of ankle and knee, no overlying skin changes, no edema Plan: R knee/ankle XR, Medical Decision Making Medical Decision Making MDM Narrative: Patient is a 39-year-old female who presents emergency department for evaluation of traumatic brain extremity pain s/p mechanical fall. Positive head strike though mild in nature no LOC no use of anticoagulants, no focal neurological deficits that would indicate emergent CT imaging. Endorsing pain primarily to the right knee without acute deformity. The examination she has an antalgic gait. Extremities neurovascularly intact distally. No erythema or warmth. Not consistent with septic joint, not consistent with DVT, exam findings not consistent with arterial occlusion. XR imaging of the ankle and he was obtained without evidence of acute fracture dislocation, possibly an underlying bursitis although she does have a history of chronic pain. Reviewed conservative treatment, provided with crutches, outpatient follow-up with primary care provider and return precautions were discussed. All questions answered. Differential Diagnosis Differential Diagnoses: The differential diagnosis associated with the presentation includes (Contusion, fracture, dislocation, sprain) Independent Interpretation I performed an independent interpretation of an: Plain X-Ray (No acute fracture dislocation of the right knee or ankle) Radiology Impression Discussion of test interpretation with radiology: I have reviewed the radiologist's reading. Radiologist Impression: 4 view right knee Comparison: DX/PA/SR - XR KNEE RT 3V - 06/13/24 13:49 EDT Findings: No Acute fracture. No dislocation. Early degenerative changes. No erosions. No joint effusion. Stable small calcification in /overlying suprapatellar bursa. No radiopaque foreign body. Possible infrapatellar anterior soft tissue swelling. IMPRESSION: 1. No acute fracture or dislocation. 2. Stable small calcification in/overlying suprapatellar bursa. 3. Possible infrapatellar anterior soft tissue swelling. 3 view right ankle Comparison: None provided Findings: No Acute fracture. No dislocation. Ankle mortise is intact. Plantar calcaneal enthesophyte. No significant arthritic change or erosions. No ankle effusion. No radiopaque foreign body. IMPRESSION: 1. No acute findings. External Record Review External record reviewed: Outpatient record Prescription Management I considered prescription management with: Pain Medication Chronic Conditions Patient?s care impacted by: Other (see [facility]) Discharge Plan Discharge Clinical Impression: Knee sprain Patient Disposition: Home, Self-Care Instructions: Knee Sprain (ED), Crutch Instructions (ED), How to Use an Elastic Bandage (ED), P.R.I.C.E. Treatment (ED) Additional Instructions: X-rays do not show evidence of fracture (broken bone) or dislocation. You have provided with crutches and instructed on usage, use elastic bandage as provided for compression to the knee. Be sure to rest over the next few days, avoid excessive walking. Elevate your leg above level your chest at all times possible. Apply ice for 10-15 minutes 4-6 times daily. You can take ibuprofen 200 mg, 3 tablets (600mg) every 6-8 hours as needed for pain, in addition to Tylenol 500 mg, 2 tablets (1,000mg) every 4-6 hours as needed for pain, but not to exceed 3 doses daily (3,000mg).? Follow up with primary care doctor. Return to emergency department any new or worsening symptoms or concerns Prescriptions: No Action clonidine HCl 0.1 mg tablet 0.1 mg PO TID Rx Instructions: takes at 0800, 1400 and 2000 benztropine 0.5 mg tablet 0.5 mg PO BID prazosin 5 mg capsule 15 mg PO BEDTIME trazodone 100 mg tablet 200 mg PO BEDTIME omeprazole 20 mg capsule,delayed release(DR/EC) 20 mg PO Q OTHER DAY cholecalciferol (vitamin D3) [Vitamin D3] 25 mcg (1,000 unit) tablet 25 mcg PO DAILY haloperidol 5 mg tablet 5 mg PO TID prazosin 1 mg capsule 1 mg PO BEDTIME haloperidol decanoate 100 mg/mL solution 75 mg IM Q28D albuterol sulfate 90 mcg/actuation HFA aerosol inhaler 2 puff inhalation Q4-6H PRN (Reason: shortness of breath or wheezing) Qty: 6.7 0RF hydroxyzine HCl 50 mg Tablet 50 mg PO Q6H PRN (Reason: mild anxiety) 30 Days Qty: 90 0RF duloxetine 60 mg capsule,delayed release(DR/EC) 60 mg PO DAILY 30 Days Qty: 30 0RF Rx Instructions: take with 30mg capsule diphenhydramine HCl [Banophen] 50 mg capsule 100 mg PO BEDTIME Incruse Ellipta 62.5 mcg/actuation blister with device 1 inh INHALATION DAILY zolpidem 10 mg tablet 10 mg PO BEDTIME multivitamin Tablet 1 tab PO DAILY lorazepam 1 mg Tablet 1 mg PO TID PRN (Reason: anxiety/agitation) Qty: 0 0RF lithium carbonate 450 mg Tablet Extended Release 900 mg PO BEDTIME 30 Days Qty: 60 0RF fluticasone propion-salmeterol [Advair HFA] 230-21 mcg/actuation HFA aerosol inhaler 2 puff INHALATION BID calcium carbonate-vitamin D3 600 mg-10 mcg (400 unit) tablet 1 tab PO BID cetirizine 10 mg tablet 10 mg PO DAILY duloxetine 30 mg capsule,delayed release(DR/EC) 30 mg PO DAILY Referrals: Hafsa Holcomb NP [Primary Care Provider, Medical] Interventions: ED Discharge Assessment Last Done: 02/07/25 19:51 Discharge Date/Time: 02/07/25 19:58 Print Language: Ghanaian
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
[2025-02-07 19:51] VITALS: BP 132/68; PULSE 73; RESP 16; TEMP 36.1
== END 2025-02-07 19:58 | disposition home or self-care (01) ==
PROVIDERS: Emergency Provider Internal Medicine; PCP Nurse Practitioner Family
DX: S83.91XA Sprain of unspecified site of right knee, initial encounter (principal); M25.562 Pain in left knee; M25.561 Pain in right knee; M25.571 Pain in right ankle and joints of right foot; X58.XXXA Exposure to other specified factors, initial encounter; W01.0XXA Fall on same level from slipping, tripping and stumbling without subsequent striking against object, initial encounter; Y93.9 Activity, unspecified; Y92.9 Unspecified place or not applicable; Y99.8 Other external cause status; Z79.899 Other long term (current) drug therapy
CPT/HCPCS: 73564; 73610; 99282; 99283

== ENCOUNTER → 2025-02-07 18:23 | Outpatient (BNV) | payer OTHER, SELFPAY | PROVIDERS: Emergency Provider Internal Medicine; PCP Nurse Practitioner Family; Visit Provider Specialist | DX: M25.571 Pain in right ankle and joints of right foot (principal); M70.51 Other bursitis of knee, right knee | CPT/HCPCS: 73564; 73610 ==

== ENCOUNTER 2025-02-10 20:24 | Emergency (ER) | payer OTHER, SELFPAY ==
[2025-02-10 20:28] VITALS: BP 168/110; PULSE 110; O2SAT 98
--- NOTE | 2025-02-10 20:39 | MHC.EDTECH ---
Changeover complete in family room with Drew maurer and Suzy PCT Belongings list complete Belongings placed in [facility] bottom right floor by security
[2025-02-10 20:42] VITALS: BMI 38.6
--- NOTE | 2025-02-10 20:50 | PC.NURSE ---
pt biba from home endorsing SI with plan to bang her head until she bleeds. pt states it is the anniversary of her sisters , recent of father and friend, she does not feel safe from herself. pt is alert and oriented x2 calm and cooperative and changed over to hospital attire. Pt is seeking inpatient services at this time. plan of care ongoing
--- NOTE | 2025-02-10 21:15 | ED.PSYCH ---
HPI - Psych General Chief Complaint: Psychiatric Symptoms Stated Complaint: SI with plan Time Seen by Provider: 02/10/25 20:44 History of Present Illness HPI Narrative: Patient is a 39-year-old female presents today with having suicidal thoughts. Have thoughts about banging her head has thoughts about jumping in front of a car. Patient state is the anniversary of her sister's . Her father and friends have . Patient is from home. Related Data Home Medications ?Medication ?Instructions ?Recorded ?Confirmed benztropine 0.5 mg tablet 0.5 mg PO BID 04/30/24 02/11/25 clonidine HCl 0.1 mg tablet 0.1 mg PO TID 04/30/24 02/11/25 omeprazole 20 mg capsule,delayed 20 mg PO Q OTHER DAY 04/30/24 02/11/25 release prazosin 5 mg capsule 15 mg PO BEDTIME 04/30/24 02/11/25 trazodone 100 mg tablet 200 mg PO BEDTIME insomnia 04/30/24 02/11/25 multivitamin 1 tab PO DAILY 05/17/24 02/11/25 zolpidem 10 mg tablet 10 mg PO BEDTIME insomnia 05/17/24 02/11/25 cholecalciferol (vitamin D3) 25 25 mcg PO DAILY 07/29/24 02/11/25 mcg (1,000 unit) tablet (Vitamin D3) haloperidol 5 mg tablet 5 mg PO TID 08/15/24 02/11/25 haloperidol decanoate 100 mg/mL 75 mg IM Q28D 08/15/24 02/11/25 intramuscular solution prazosin 1 mg capsule 1 mg PO BEDTIME 08/15/24 02/11/25 calcium 600 mg (as 1 tab PO BID 11/02/24 02/11/25 carbonate)-vitamin D3 10 mcg (400 unit) tablet fluticasone propionate 230 2 puff inhalation BID 11/02/24 02/11/25 mcg-salmeterol 21 mcg/actuation HFA inhaler (Advair HFA) cetirizine 10 mg tablet 10 mg PO DAILY 11/06/24 02/11/25 duloxetine 30 mg capsule,delayed 30 mg PO DAILY 11/06/24 02/11/25 release diphenhydramine HCl 50 mg capsule 100 mg PO BEDTIME insomnia 12/03/24 02/11/25 (Banophen) umeclidinium 62.5 mcg/actuation 1 inh inhalation DAILY 12/03/24 02/11/25 blister powder for inhalation (Incruse Ellipta) acetaminophen 500 mg tablet 1,000 mg PO Q6H PRN Pain 02/12/25 02/12/25 bacitracin zinc 500 unit/gram 1 appl topical BID PRN Wound Care 02/12/25 02/12/25 topical ointment fluticasone propionate 50 2 spray intranasal DAILY 02/12/25 02/12/25 mcg/actuation nasal spray,suspension ibuprofen 600 mg tablet 600 mg PO TID PRN Pain 02/12/25 02/12/25 polyethylene glycol 3350 17 17 g PO DAILY PRN Constipation 02/12/25 02/12/25 gram/dose oral powder (Miralax) sennosides 8.6 mg tablet (senna) 17.2 mg PO BEDTIME PRN No Bm in 3 02/12/25 02/12/25 Days/ Previous Rx's ?Medication ?Instructions ?Recorded lorazepam 1 mg tablet 1 mg PO TID PRN anxiety/agitation 05/22/24 #0 tabs albuterol sulfate 90 mcg/actuation 2 puff inhalation Q4-6H PRN 08/30/24 aerosol inhaler shortness of breath or wheezing #6.7 grams duloxetine 60 mg capsule,delayed 60 mg PO DAILY 30 days #30 caps 10/03/24 release hydroxyzine HCl 50 mg tablet 50 mg PO Q6H PRN mild anxiety 30 10/03/24 days #90 tabs lithium carbonate 450 mg 900 mg (2 x 450 mg) PO BEDTIME 30 10/17/24 tablet,extended release days #60 tabs Allergies Allergy/AdvReac Type Severity Reaction Status Date / Time carbamazepine (From TEGRETOL) AdvReac Mild Nausea and Verified 02/10/25 20:44 Vomiting topiramate (From Topamax) AdvReac Mild Nausea and Verified 02/10/25 20:44 Vomiting Review of Systems Review of Systems: No fever no chills no chest pain or shortness breath Yes all other systems are reviewed and are negative PMFSH Past Medical History Attestation statement: The following information was validated with the patient. Medical History Depression Schizoaffective disorder, depressive type Depression with suicidal ideation MDD (major depressive disorder), recurrent, severe, with psychosis Port-A-Cath in place History of electroconvulsive therapy COVID-19 COVID-19 Sprain of left foot Chronic post-traumatic stress disorder (PTSD) COPD (chronic obstructive pulmonary disease) Increased BMI GERD (gastroesophageal reflux disease) Recurrent major depression-severe Acute post-traumatic stress disorder Injury, self-inflicted Suicidal ideation Self-harming behavior Intentional self-harm Suicidal ideation Borderline personality disorder Schizoaffective disorder Adjustment disorder Asthma Depression Anxiety PTSD (post-traumatic stress disorder) Family History Family History Mother Brain cancer Other No family history of cardiac disease Social History Social History Household Members: Other Household Members Other:: [employer] Housing: Other Housing Other:: [facility] Do you presently have visiting nurse or other home services: No Unable to assess alcohol history related to: Unable to respond Alcohol intake: current Alcohol intake frequency: does not drink Patient Tobacco Use Status: Never used Tobacco Tobacco use type: Cigarette Cigarette Packs Per Day: 0.5 Cigarettes Per Day: 8 Years Smoked: 20 Smoked in Last 30 Days: Yes e-Cigarette/Vaping Use: Never Used Second Hand Smoke Exposure: No Use of substances other than those prescribed or required for medical reasons: No Substance Use Type: Marijuana Advance Directives: No Advance Directives Information Provided: No service: No Current occupation: rt handed Sexual orientation: Straight/Heterosexual Physical Exam Vital Signs: Vital Signs: Last Vital Signs Temp 97.6 F 02/12/25 15:45 Pulse 84 02/12/25 15:45 Resp 18 02/12/25 15:45 BP 123/56 L 02/12/25 15:45 Pulse Ox 95 02/12/25 15:45 O2 Del Method Room Air 02/12/25 15:45 BMI result Body Mass Index 38.6 Appearance: Alert. Oriented X3. No acute distress. Eyes: Pupils equal, round and reactive to light. ENT: Pharynx normal. Neck: Normal inspection. Neck supple. No lymph nodes noted. No crepitus CVS: Normal heart rate and rhythm. Pulses normal. Normal S1 and S2 Respiratory: No respiratory distress. Breath sounds normal. No Wheezing. No rales Abdomen: Soft and nontender. No rigidity. No distention. good BS x4 Skin: Skin warm and dry. Normal skin color. Normal skin turgor. Extremities: No lower extremity edema. Neurovascular intact to all extremities. No Lacerations. No Rash Neuro: Oriented X 3. No motor deficit. No sensory deficit. Moving all extermities. No slurred speech Course Reevaluation(s) Reevaluation #1: 02/11/2025: 1430 DR. Chau's Progress note: VSS, no issue reported by nurse overnight, patient usually asked to be discharged back to the shelter but today she is seeking inpatient care, patient is voluntarily, bed search is underway, continue with physician observation. Time: 14:22 Reevaluation #2: Time: 09:54 Date: 02/12/25 Provider: Cassandra Gonzales DO Patient in physician observation for psychiatric evaluation.? No acute events reported overnight. No current complaints. VS stable.? Patient is in bed search status. Will continue to monitor. Reevaluation #3: Time: 16:58 Date: 02/12/25 Provider: Cassandra Gonzales DO Physician observation ended at 458pm. Patient has been cleared for discharge by the CARE team. Will follow up as an outpatient. Medications Administered Generic Name Dose Route Start Last Admin Trade Name Griffinq PRN Reason Stop Dose Admin Benztropine Mesylate 0.5 mg 02/11/25 21:00 02/12/25 10:31 Benztropine Mesylate 0.5 Mg Tablet PO 0.5 mg BID SULEIMAN Administration Calcium Carbonate/Cholecalciferol 500 mg 02/11/25 21:00 02/12/25 10:31 Calcium + Vitamin D 250 Mg Tablet PO 500 mg BID SULEIMAN Administration Clonidine HCl 0.1 mg 02/11/25 21:00 02/12/25 15:43 Clonidine Hcl 0.1 Mg Tablet PO 0.1 mg TID SULEIMAN Administration Protocol Diphenhydramine HCl 100 mg 02/11/25 21:00 02/11/25 20:43 Diphenhydramine Hcl 25 Mg Capsule PO 100 mg BEDTIME SULEIMAN Administration Duloxetine HCl 30 mg 02/12/25 09:00 02/12/25 10:31 Duloxetine Hcl 30 Mg Capsule. PO 30 mg DAILY SULEIMAN Administration Duloxetine HCl 60 mg 02/12/25 09:00 02/12/25 10:31 Duloxetine Hcl 60 Mg Capsule. PO 60 mg DAILY SULEIMAN Administration Fluticasone/Vilanterol 1 puff 02/12/25 08:00 02/12/25 10:30 Fluticasone/Vilanterol 200/25 Blst.W.Dev INHALE 1 puff RDAILY SULEIMAN Administration Haloperidol 5 mg 02/11/25 21:00 02/12/25 10:31 Haloperidol 5 Mg Tablet PO 5 mg TID SULEIMAN Administration Hydroxyzine HCl 50 mg 02/11/25 20:22 02/12/25 15:43 Hydroxyzine Hcl 50 Mg Tablet PO 50 mg Q6H PRN Administration mild anxiety [employer] Carbonate 900 mg 02/11/25 21:00 02/11/25 20:50 [employer] Carbonate Er 450 Mg Tablet.Er PO 900 mg BEDTIME SULEIMAN Administration Loratadine 10 mg 02/12/25 09:00 02/12/25 10:31 Loratadine 10 Mg Tablet PO 10 mg DAILY SULEIMAN Administration Lorazepam 1 mg 02/11/25 20:22 02/12/25 13:01 Lorazepam 1 Mg Tablet PO 1 mg TID PRN Administration anxiety/agitation Multivitamins/Vitamin C 1 tab 02/12/25 09:00 02/12/25 10:31 Multivitamin Tablet PO 1 tab DAILY SULEIMAN Administration Omeprazole 20 mg 02/12/25 06:30 02/12/25 10:31 Omeprazole 20 Mg Capsule. PO 20 mg Q2D@0630 SULEIMAN Administration Prazosin HCl 15 mg 02/11/25 21:00 02/11/25 21:21 Prazosin Hcl 5 Mg Capsule PO 15 mg BEDTIME SULEIMAN Administration Protocol Prazosin HCl 1 mg 02/11/25 21:00 02/11/25 20:50 Prazosin Hcl 1 Mg Capsule PO 1 mg BEDTIME SULEIMAN Administration Protocol Tiotropium Roach 2 puff 02/12/25 08:00 02/12/25 07:56 Tiotropium [place]ach 2.5 Mcg 1 Puff/2.5 Mcg Mist.Inhal INHALE Not Given RDAILY SULEIMAN Trazodone HCl 200 mg 02/11/25 21:00 02/11/25 20:43 Trazodone Hcl 100 Mg Tablet PO 200 mg BEDTIME SULEIMAN Administration Vitamin D 25 mcg 02/12/25 09:00 02/12/25 10:31 Cholecalciferol (Vitamin D3) 25 Mcg Tablet PO 25 mcg DAILY SULEIMAN Administration Zolpidem Tartrate 10 mg 02/11/25 21:00 02/11/25 20:43 Zolpidem Tartrate 5 Mg Tablet PO 10 mg BEDTIME SULEIMAN Administration Discontinued Medications Generic Name Dose Route Start Last Admin Trade Name Leno PRN Reason Stop Dose Admin Haloperidol 5 mg 02/10/25 22:35 02/10/25 23:47 Haloperidol 5 Mg Tablet PO 02/10/25 22:36 5 mg ONCE ONE Administration Lorazepam 2 mg 02/10/25 21:12 02/10/25 21:25 Lorazepam 1 Mg Tablet PO 02/10/25 21:13 2 mg ONCE ONE Administration Lorazepam 1 mg 02/10/25 22:35 02/10/25 23:47 Lorazepam 1 Mg Tablet PO 02/10/25 22:36 1 mg ONCE ONE Administration Lorazepam 2 mg 02/11/25 16:35 02/11/25 16:48 Lorazepam 1 Mg Tablet PO 02/11/25 16:36 2 mg ONCE ONE Administration Medical Decision Making Medical Decision Making MDM Narrative: Will get crisis to evaluate patient. Lab Data 02/10/25 21:46 02/10/25 21:46 Labs: Lab Results 02/10/25 02/12/25 Range/Units 21:46 11:19 WBC 6.8 (4.8-10.8) X10*3/uL RBC 3.80 L (4.20-5.50) X10*6/uL Hgb 11.6 L (12.0-16.0) g/dl Hct 33.9 L (37.0-47.0) % MCV 89.2 (80.0-98.0) fL MCH 30.5 (27.0-33.0) pg MCHC 34.2 (31.0-35.0) g/dl RDW 13.2 (11.0-16.0) % Plt Count 221 (160-400) X10*3/uL MPV 10.9 (9.4-12.3) fL Immature Gran % (Auto) 0.1 (0.0-0.4) % Neut % (Auto) 72.5 (45-73) % Lymph % (Auto) 19.9 L (20-40) % [place] % (Auto) 6.1 (2-11) % Eos % (Auto) 1.0 (0-4) % Baso % (Auto) 0.4 (0-2) % Lymph # (Auto) 1.3 (1.2-4.9) X10*3/uL [place] # (Auto) 0.4 (0.1-1.2) X10*3/uL Eos # (Auto) 0.1 (0.0-0.4) X10*3/uL Baso # (Auto) 0.0 (0.0-0.2) X10*3/uL Abs Immat Gran (auto) 0.01 (0.00-0.03) X10*3/uL Absolute Neuts (auto) 4.9 (2.0-8.3) x10*3/uL Absolute Nucleated RBC 0.000 (0.0-0.012) X10*3/uL Nucleated RBC % (auto) 0.0 (0.0-0.2) /100WBC Sodium 137 (135-145) mmol/L Potassium 3.4 (3.3-5.1) mmol/L Chloride 107 (96-108) mmol/L Carbon Dioxide 21 L (22-29) mmol/L Anion Gap 12 (12-20) BUN 5 L (9-16) mg/dL Creatinine 0.72 (0.5-1.4) mg/dL Estim Creat Clear Calc 101.2 Estimated GFR > 60 Random Glucose 128 H (60-115) mg/dL Calcium 9.3 (8.4-10.2) mg/dL Beta HCG, Quant < 2 mIU/mL Urine Color Yellow Urine Appearance Cloudy Urine pH 8.5 (5.0-9.0) Ur Specific [place] 1.010 (1.005-1.025) Urine Protein Negative (Neg-Trace) mg/dL Urine Glucose (UA) Negative (Negative) mg/dL Urine Ketones Negative (Negative) mg/dL Urine Blood Negative (Negative) Urine Nitrite Negative (Negative) Ur Leukocyte Esterase Large (3+) H (Negative) Urine RBC 0-2 (0-2) /HPF Urine WBC 0-5 (0-5) /HPF Ur Squamous Epith Cells >20 (0-2) /HPF Urine Bacteria 1+ (None Seen) Hyaline Casts 0-2 (0-2) /LPF Urine Opiates Screen Not Detected (Not Detect) Ur Buprenorphine Scrn Not Detected (Not Detect) ng/mL Ur Oxycodone Screen Not Detected (Not Detect) ng/mL Urine Methadone Screen Not Detected (Not Detect) ng/mL Urine Fentanyl Screen Not Detected (Not Detect) Ur Barbiturates Screen Not Detected (Not Detect) Ur Phencyclidine Scrn Not Detected (Not Detect) Ur Amphetamines Screen Not Detected (Not Detect) U Benzodiazepines Scrn Not Detected (Not Detect) Urine Cocaine Screen Not Detected (Not Detect) U Marijuana (THC) Screen Not Detected (Not Detect) Discharge Plan Discharge Clinical Impression: Chronic post-traumatic stress disorder (PTSD) Patient Disposition: Home, Self-Care Instructions: PTSD (Post Traumatic Stress Disorder) (ED) Additional Instructions: You were seen in our Emergency Department today for treatment of a behavioral health issue. It is important after your visit that you follow up with either your behavioral health provider or a primary care doctor within 7 days.? If you have trouble finding a therapist you can reach out to [place] [phone] The National Suicide and Crisis Lifeline can be reached 7 days a week 24 hours a day.? Call 988 to speak with someone.? Return for any worsening symptoms or concerns such as thoughts of self harm or harm to others. Please call 911 if you feel your mental health is worsening.? Prescriptions: No Action clonidine HCl 0.1 mg tablet 0.1 mg PO TID Rx Instructions: takes at 0800, 1400 and 2000 benztropine 0.5 mg tablet 0.5 mg PO BID prazosin 5 mg capsule 15 mg PO BEDTIME trazodone 100 mg tablet 200 mg PO BEDTIME omeprazole 20 mg capsule,delayed release(DR/EC) 20 mg PO Q OTHER DAY cholecalciferol (vitamin D3) [Vitamin D3] 25 mcg (1,000 unit) tablet 25 mcg PO DAILY haloperidol 5 mg tablet 5 mg PO TID prazosin 1 mg capsule 1 mg PO BEDTIME haloperidol decanoate 100 mg/mL solution 75 mg IM Q28D albuterol sulfate 90 mcg/actuation HFA aerosol inhaler 2 puff inhalation Q4-6H PRN (Reason: shortness of breath or wheezing) Qty: 6.7 0RF hydroxyzine HCl 50 mg Tablet 50 mg PO Q6H PRN (Reason: mild anxiety) 30 Days Qty: 90 0RF duloxetine 60 mg capsule,delayed release(DR/EC) 60 mg PO DAILY 30 Days Qty: 30 0RF Rx Instructions: take with 30mg capsule diphenhydramine HCl [Banophen] 50 mg capsule 100 mg PO BEDTIME Incruse Ellipta 62.5 mcg/actuation blister with device 1 inh INHALATION DAILY sennosides [senna] 8.6 mg Tablet 17.2 mg PO BEDTIME PRN (Reason: No Bm in 3 Days/) acetaminophen 500 mg Tablet 1,000 mg PO Q6H PRN (Reason: Pain) ibuprofen 600 mg Tablet 600 mg PO TID PRN (Reason: Pain) polyethylene glycol 3350 [Miralax] 17 gram/dose Powder 17 g PO DAILY PRN (Reason: Constipation) fluticasone propionate 50 mcg/actuation spray,suspension 2 spray intranasal DAILY bacitracin zinc 500 unit/gram Ointment 1 appl TOPICAL BID PRN (Reason: Wound Care) zolpidem 10 mg tablet 10 mg PO BEDTIME multivitamin Tablet 1 tab PO DAILY lorazepam 1 mg Tablet 1 mg PO TID PRN (Reason: anxiety/agitation) Qty: 0 0RF lithium carbonate 450 mg Tablet Extended Release 900 mg PO BEDTIME 30 Days Qty: 60 0RF fluticasone propion-salmeterol [Advair HFA] 230-21 mcg/actuation HFA aerosol inhaler 2 puff INHALATION BID calcium carbonate-vitamin D3 600 mg-10 mcg (400 unit) tablet 1 tab PO BID cetirizine 10 mg tablet 10 mg PO DAILY duloxetine 30 mg capsule,delayed release(DR/EC) 30 mg PO DAILY Interventions: [place]-Suicide Risk Severity Scale Last Done: 02/11/25 22:19 Print Language: Greek
[2025-02-10] MEDS: LORazepam 1 MG TABLET 2 MG PO (21:25)
[2025-02-10 21:40] VITALS: BP 91/58; PULSE 91; RESP 18; TEMP 36.7; O2SAT 99
[2025-02-10 21:53] LABS: MANUAL DIFF FLAG NO
[2025-02-10 21:54] LABS: Basophils Percent Auto 0.4 % (0-2); Eosinophils Absolute Auto 0.1 X10*3/uL (0.0-0.4); Hematocrit 33.9 % (37.0-47.0); Hemoglobin 11.6 g/dl (12.0-16.0); Imm Gran Abs Auto 0.01 X10*3/uL (0.00-0.03); Imm Gran Pct Auto 0.1 % (0.0-0.4); Lymphocytes Absolute Auto 1.3 X10*3/uL (1.2-4.9); Lymphocytes Percent Auto 19.9 % (20-40); Mean Corpuscular HGB Conc 34.2 g/dl (31.0-35.0); Mean Corpuscular Hemoglobin 30.5 pg (27.0-33.0); Mean Corpuscular Volume 89.2 fL (80.0-98.0); Mean Platelet Volume 10.9 fL (9.4-12.3); Monocytes Absolute Auto 0.4 X10*3/uL (0.1-1.2); Monocytes Percent Auto 6.1 % (2-11); Neutrophils Absolute Auto 4.9 x10*3/uL (2.0-8.3); Neutrophils Percent Auto 72.5 % (45-73); Platelet Count 221 X10*3/uL (160-400); Red Cell Distribution Width 13.2 % (11.0-16.0); White Blood Count 6.8 X10*3/uL (4.8-10.8)
[2025-02-10 22:05] LABS: Amphetamine Screen Urine Not Detected (Not Detect); Barbiturates, Urine Not Detected (Not Detect); Benzodiazepines Screen Urine Not Detected (Not Detect); Buprenorphine Scr Not Detected (Not Detect); Cannabinoid Screen Urine Not Detected (Not Detect); Cocaine Screen Urine Not Detected (Not Detect); Fentanyl, urine Not Detected (Not Detect); Methadone Screen, Urine Not Detected (Not Detect); Opiate Screen Urine Not Detected (Not Detect); Oxycodone Screen Urine Not Detected (Not Detect); Phencyclidine Screen Urine Not Detected (Not Detect)
[2025-02-10 22:12] LABS: Anion Gap 12 (12-20); Blood Urea Nitrogen 5 mg/dL (9-16); Calcium 9.3 mg/dL (8.4-10.2); Carbon Dioxide 21 mmol/L (22-29); Chloride 107 mmol/L (96-108); Creatinine Clr Calc Pharmacy 101.2; Estimated Glomerular Filt Rate > 60; Glucose Random 128 mg/dL (60-115); Potassium 3.4 mmol/L (3.3-5.1); Sodium 137 mmol/L (135-145)
[2025-02-10 22:16] LABS: HCG Quantitative < 2 mIU/mL
[2025-02-10] MEDS: HaloperidoL 5 MG TABLET PO (23:47)
[2025-02-10] MEDS: LORazepam 1 MG TABLET PO (23:47)
[2025-02-11] VITALS: BP 97/63; PULSE 80; RESP 20; TEMP 36.7; O2SAT 94
[2025-02-11 06:25] VITALS: BP 102/56; PULSE 62; TEMP 36.8; O2SAT 97
[2025-02-11 14:19] VITALS: BP 105/51; PULSE 69; RESP 16; TEMP 36.8; O2SAT 98
--- NOTE | 2025-02-11 14:20 | PC.NURSE ---
pt sleeping, wakes to verbal stimulus, vitals obtained/stable, pt offered po, 1:1 sitter at bedside, denies pain/discomfort at this time, pt is inpt bedsearch per care team
--- NOTE | 2025-02-11 15:52 | MHC.CARE ---
Patient stopped clinician in hallway and requested discharge, she reported her staff told her that [facility] doesn't want you there . Patient reported not feeling safe and was observed punching self in head and hitting her head on the stretcher bars, she will remain on section 12.
[2025-02-11] MEDS: LORazepam 1 MG TABLET 2 MG PO (16:48)
--- NOTE | 2025-02-11 19:41 | PC.NURSE ---
pt requesting home meds, med rec completed with list from N. provider aware
[2025-02-11] MEDS: Zolpidem Tartrate 5 MG TABLET 10 MG PO (20:43)
[2025-02-11] MEDS: diphenhydrAMINE HCL 25 MG CAPSULE 100 MG PO (20:43)
[2025-02-11] MEDS: traZODone HCL 100 MG TABLET 200 MG PO (20:43)
[2025-02-11] MEDS: Benztropine Mesylate 0.5 MG TABLET PO (20:50)
[2025-02-11] MEDS: HaloperidoL 5 MG TABLET PO (20:50)
[2025-02-11] MEDS: Lithium Carbonate ER 450 MG TABLET.ER 900 MG PO (20:50)
[2025-02-11] MEDS: Calcium + Vitamin D 250 MG TABLET 500 MG PO (20:50)
[2025-02-11] MEDS: Prazosin HCL 1 MG CAPSULE PO (20:50)
[2025-02-11 20:52] VITALS: BP 123/80; PULSE 83; RESP 20; O2SAT 96
[2025-02-11] MEDS: cloNIDine HCL 0.1 MG TABLET PO (20:52)
[2025-02-11] MEDS: Prazosin HCL 5 MG CAPSULE 15 MG PO (21:21)
[2025-02-11] MEDS: LORazepam 1 MG TABLET PO (21:21)
--- NOTE | 2025-02-11 21:30 | PC.NURSE ---
pt hitting herself in the head on/off for past hour, pt medicated per OCT. pt resting at this time. sitter at bedside
--- NOTE | 2025-02-12 | ECG_ITS ---
Test Reason : ADMISSION Blood Pressure : */* mmHG Vent. Rate : 84 BPM Atrial Rate : 84 BPM P-R Int : 154 ms QRS Dur : 72 ms QT Int : 372 ms P-R-T Axes : 69 74 48 degrees QTcB Int : 439 ms Normal sinus rhythm Possible Left atrial enlargement Nonspecific T wave abnormality Abnormal ECG When compared with ECG of 03-Jan-2025 16:23, No significant change was found Referred By: Cassandra Gonzales Electronically Signed By: DONAL HAAS MD
--- NOTE | 2025-02-12 08:17 | PC.NURSE ---
Resumed care of pt at 0700, she is currently sound asleep in bed, at this time this RN is not going to wake pt but let her sleep. Breakfast tray at bedside, 1:1 sitter maintained, awaiting inpt bed at this time.
--- NOTE | 2025-02-12 09:56 | PHA.MEDREC ---
Addendum entered by Bruce Junior PharmD 02/12/25 10:07: reviewed Original Note: Pharmacy Consult ? Medication Reconciliation Pharmacy reviewed med rec done by nursing. nursing confirmed med rec with list from [facility]. I utilized the same list and noticed Fluticasone 50mcg 1 qd, Acetaminophen 500mg 1 Q6H PRN pain, Miralax 17gm QD PRN constipation, Senna 8.6mg 2 tabs at bedtime PRN if no BM in 3 days and Ibuprofen 600mg 1 TID were on the list but not added; I added those. Daily Fiber tab on the list but no dose for it.
[2025-02-12 10:22] VITALS: BP 124/64; PULSE 98; RESP 14; TEMP 36.7; O2SAT 96
[2025-02-12] MEDS: Fluticasone/Vilanterol 200/25 BLST.W.DEV 1 PUFF INHALE (10:30)
[2025-02-12 10:31] VITALS: BP 124/64
[2025-02-12] MEDS: DULoxetine HCl 30 MG CAPSULE.DR PO (10:31)
[2025-02-12] MEDS: Loratadine 10 MG TABLET PO (10:31)
[2025-02-12] MEDS: DULoxetine HCl 60 MG CAPSULE.DR PO (10:31)
[2025-02-12] MEDS: Omeprazole 20 MG CAPSULE.DR PO (10:31)
[2025-02-12] MEDS: Multivitamin TABLET 1 TAB PO (10:31)
[2025-02-12] MEDS: cloNIDine HCL 0.1 MG TABLET PO ×2 (10:31→15:43)
[2025-02-12] MEDS: Cholecalciferol (Vitamin D3) 25 MCG TABLET PO (10:31)
[2025-02-12] MEDS: Benztropine Mesylate 0.5 MG TABLET PO (10:31)
[2025-02-12] MEDS: Calcium + Vitamin D 250 MG TABLET 500 MG PO (10:31)
[2025-02-12] MEDS: HaloperidoL 5 MG TABLET PO (10:31)
--- NOTE | 2025-02-12 10:36 | PC.NURSE ---
Pt woke up this morning, asking if she could leave, this RN gave her her morning medications, careteam aware, pt currently in agreement to let avtar decided where she is at with a bed. Pt was banging her head yesterday. This RN asked how she is feeling this morning, she states that she is feeling good, no SI/HI, her voices are not telling her to hurt herself this morning. She reports yesterday was a hard day for her and that they were telling her to urt herself. At this time she is calm and cooperative, answering all questions.
--- NOTE | 2025-02-12 10:56 | PC.NURSE ---
EKG and urine order placed for bed placement
[2025-02-12 11:29] LABS: Appearance Urine Cloudy; Color Urine Yellow; Glucose Urine UA Negative (Negative); Leukocyte Esterase Urine Large (3+) (Negative); Nitrite Urine Negative (Negative); PH 8.5 (5.0-9.0); UMIC TRIGGER UACC YES; Urine Blood Negative (Negative); Urine Ketones Negative (Negative); Urine Protein Negative (Neg-Trace)
[2025-02-12 11:36] LABS: Bacteria Urine 1+ (None Seen); Hyaline Casts Urine 0-2 /LPF (0-2); RBC Urine 0-2 /HPF (0-2); Squamous Epithelial Cell Urine >20 /HPF (0-2); UACC Culture Trigger YES; WBC Urine 0-5 /HPF (0-5)
[2025-02-12] MEDS: LORazepam 1 MG TABLET PO (13:01)
[2025-02-12 15:43] VITALS: BP 123/56
[2025-02-12] MEDS: hydrOXYzine HCL 50 MG TABLET PO (15:43)
[2025-02-12 15:45] VITALS: BP 123/56; PULSE 84; RESP 18; TEMP 36.4; O2SAT 95
--- NOTE | 2025-02-12 15:46 | PC.NURSE ---
Pt noted to be getting very anxious and starting to hit her head again, stating the voices are telling her too. Pt is still awaiting a bed assignment upstairs at this time. Emotional support provided, pt in agreement with PRN medications at this time. Pt not wanting PO intake stating I just don't want too
[2025-02-12 17:27] VITALS: BP 126/77; PULSE 86; RESP 18; TEMP 36.3; O2SAT 95
[2025-02-12 17:29] VITALS: BP 126/77; PULSE 86; RESP 18; TEMP 36.3; O2SAT 95
--- NOTE | 2025-02-12 17:42 | PC.NURSE ---
This RN and avtar at bedside to discuss plan with pt, she was getting very anxious about waiting for a bed, pt requesting to be able to go home. This RN did discuss some of the symptoms she has been having today, and if she felt like she could control those urges at home safely, avtar agreed and pt reported she feels like it was because she was anxious about waiting for a bed. Team discussed options and it was determined that pt would be D/Cd back to home, Lyft ride booked for pt by avtar, belongings returned to pt, pt escorted out of ED to wait for Lyft ride.
== END 2025-02-12 17:44 | disposition home or self-care (01) ==
PROVIDERS: Emergency Medicine; Emergency Provider Emergency Medicine Emergency Medical Services; PCP Nurse Practitioner Family
DX: F43.12 Post-traumatic stress disorder, chronic (principal); R45.851 Suicidal ideations; F33.3 Major depressive disorder, recurrent, severe with psychotic symptoms; F25.9 Schizoaffective disorder, unspecified; F60.3 Borderline personality disorder; F43.20 Adjustment disorder, unspecified; J44.9 Chronic obstructive pulmonary disease, unspecified; K21.9 Gastro-esophageal reflux disease without esophagitis; F12.90 Cannabis use, unspecified, uncomplicated; E66.9 Obesity, unspecified; Z68.38 Body mass index [BMI] 38.0-38.9, adult; Z91.52 Personal history of nonsuicidal self-harm; Z79.899 Other long term (current) drug therapy
CPT/HCPCS: 36415; 80048; 80307; 81001; 84702; 85025; 87086; 87147; 93005; 99285; S9485

== ENCOUNTER → 2025-02-12 11:01 | Outpatient (BNV) | payer OTHER, SELFPAY | PROVIDERS: Emergency Provider Emergency Medicine Emergency Medical Services; PCP Nurse Practitioner Family; Visit Provider Internal Medicine Cardiovascular Disease | DX: R94.31 Abnormal electrocardiogram [ECG] [EKG] (principal); Z13.6 Encounter for screening for cardiovascular disorders | CPT/HCPCS: 93010 ==

== ENCOUNTER 2025-03-05 05:56 | Day surgery (SDC) | payer OTHER, SELFPAY ==
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
[2025-03-05 06:27] VITALS: BP 126/71; PULSE 66; RESP 20; TEMP 36.4; O2SAT 98; BMI 39.2
[2025-03-05 06:46] LABS: UPreg QC Valid YES
--- NOTE | 2025-03-05 06:57 | MHC.SHP ---
Pre-Procedural Eval Section A - 24 Hr Update-Section A only Date of Service: 03/05/25 Section B - Complete if H&P > 30 days Chief Complaint: depression Details of Present Illness: doing well with present treatment regimen Allergies: Allergies Allergy/AdvReac Type Severity Reaction Status Date / Time carbamazepine (From TEGRETOL) AdvReac Mild Nausea and Verified 02/10/25 20:44 Vomiting topiramate (From Topamax) AdvReac Mild Nausea and Verified 02/10/25 20:44 Vomiting Review of Systems Sugical H&P ROS: Negative: Constitution, Cardiovascular, Respiratory, Neurological, Psychiatric, Hem-Onc, Allergic/Immunologic, Gastrointestinal, Genitourinary, Musculoskeletal, Integumentary, Endocrine and Eyes/Ears/Nose/Throat Exam Surgical H&P Exam: Normal: HEENT and Normal: Neurological Plan Diagnosis/Plan: Unchanged I have reviewed the history and physical and performed a pertinent physical examination on my patient. No changes have occurred unless specified. Time Spent With Patient Time: Total time managing care of this patient today __35__ minutes.
[2025-03-05 07:20] VITALS: BP 139/94; PULSE 68; RESP 18; TEMP 36.6; O2SAT 98
[2025-03-05 07:25] VITALS: BP 116/84; PULSE 59; RESP 19; O2SAT 98
[2025-03-05 07:30] VITALS: BP 110/72; PULSE 65; RESP 20; O2SAT 98
[2025-03-05 07:35] VITALS: BP 105/85; PULSE 65; RESP 15; O2SAT 94
--- NOTE | 2025-03-05 07:35 | HO.ECTPROC ---
ECT Procedure Note Diagnosis/Treatment Date of Service: 03/05/25 Diagnosis: Major Depressive Disorder Previous ECT Date: 02/05/25 Treatment: Maintenance Interval Clinical Notes: pt reports doing well in the interval, psychiatrically stable. Time: Total time managing care of this patient today __35__ minutes. ECT Settings Device: THYMATRON DGx Electrode Placement: Bitemporal Program/Pulse Width: 0.50 Energy Percent: 100 Medications Administration General Anesthetic: Etomidate (14) Muscle Relaxant: Succinylcholine (80) Ancillary Medications Anti-emetics: Zofran - Pre ECT Miscillaneous Medications: Propofol Airway Management Airway Management: Bag Mask Ventilation Treatment Recommendations No Changes Recommended: No change Notes: pt with motor signs of seizure. EEG tracing unable to be properly tracked despite gain adjustments during seizure. propofol was given at about 75 seconds, so seizure would have been terminated by that time or shortly after. RTC in 2 weeks (03/19/25) Pt Tolerated Procedure w/o Issue: Yes
[2025-03-05 07:50] VITALS: BP 126/73; PULSE 70; RESP 18; TEMP 36.6; O2SAT 100
[2025-03-05] MEDS: Heparin Sodium,Porcine Flush 50 UNITS/5 ML SYRINGE 100 UNITS IVFLUSH (07:50)
--- NOTE | 2025-03-05 07:54 | HO.ANESPROP2 ---
[facility] Active Problems Active Problems: All Active Problems (Updated 02/12/25 @ 16:59 by Cassandra Gonzales DO) Chronic post-traumatic stress disorder (PTSD) (Acute) MDD (major depressive disorder), recurrent, severe, with psychosis (Acute) Osteoarthritis of right knee (Acute) Chronic post-traumatic stress disorder (PTSD) (Chronic) Borderline personality disorder (Chronic) Auditory hallucinations (Acute) Port-A-Cath in place (Acute) Intentional self-harm (Acute) COPD (chronic obstructive pulmonary disease) (Acute) Asthma (Acute) Adjustment disorder (Acute) Injury of ligament of right knee (Acute) Sprain of anterior cruciate ligament of right knee (Acute) Hernia (Chronic) Increased BMI (Acute) GERD (gastroesophageal reflux disease) (Acute) Past Medical History Medical History Depression Schizoaffective disorder, depressive type Depression with suicidal ideation MDD (major depressive disorder), recurrent, severe, with psychosis Port-A-Cath in place History of electroconvulsive therapy COVID-19 COVID-19 Sprain of left foot Chronic post-traumatic stress disorder (PTSD) COPD (chronic obstructive pulmonary disease) Increased BMI GERD (gastroesophageal reflux disease) Recurrent major depression-severe Acute post-traumatic stress disorder Injury, self-inflicted Suicidal ideation Self-harming behavior Intentional self-harm Suicidal ideation Borderline personality disorder Schizoaffective disorder Adjustment disorder Asthma Depression Anxiety PTSD (post-traumatic stress disorder) Family History Family History Mother Brain cancer Other No family history of cardiac disease Family history of problems with anesthesia: No Surgical History History of Problems with Anesthesia: No Social History Social History Household Members: Other Household Members Other:: [employer] Housing: Other Housing Other:: JAIL Do you presently have visiting nurse or other home services: No Unable to assess alcohol history related to: Unable to respond Alcohol intake: current Alcohol intake frequency: does not drink Patient Tobacco Use Status: Never used Tobacco Tobacco use type: Cigarette Cigarette Packs Per Day: 0.5 Cigarettes Per Day: 10.0 Years Smoked: 20 e-Cigarette/Vaping Use: Never Used Second Hand Smoke Exposure: No Substance Use Type: Marijuana Advance Directives: No Advance Directives Information Provided: Yes service: No Current occupation: rt handed Sexual orientation: Straight/Heterosexual Meds Allergies Allergy/AdvReac Type Severity Reaction Status Date / Time carbamazepine (From TEGRETOL) AdvReac Mild Nausea and Verified 02/10/25 20:44 Vomiting topiramate (From Topamax) AdvReac Mild Nausea and Verified 02/10/25 20:44 Vomiting Active Medications: Current Medications Heparin Sodium (Porcine) (Heparin Sodium,Porcine Flush 50 Units/5 Ml Syringe) 50 units IVFLUSH ONCE PRN PRN Reason: Infusion Center Home Medications ?Medication ?Instructions ?Recorded ?Confirmed ?Last Taken ?Type benztropine 0.5 mg tablet 0.5 mg PO BID 04/30/24 02/11/25 12/06/24 20:00 History clonidine HCl 0.1 mg tablet 0.1 mg PO TID 04/30/24 02/11/25 12/06/24 20:00 History omeprazole 20 mg capsule,delayed 20 mg PO Q OTHER DAY 04/30/24 02/11/25 10/05/24 History release prazosin 5 mg capsule 15 mg PO BEDTIME 04/30/24 02/11/25 12/06/24 20:00 History trazodone 100 mg tablet 200 mg PO BEDTIME insomnia 04/30/24 02/11/25 10/05/24 History multivitamin 1 tab PO DAILY 05/17/24 02/11/25 12/06/24 08:00 History zolpidem 10 mg tablet 10 mg PO BEDTIME insomnia 05/17/24 02/11/25 12/06/24 20:00 History cholecalciferol (vitamin D3) 25 25 mcg PO DAILY 07/29/24 02/11/25 12/06/24 08:00 History mcg (1,000 unit) tablet (Vitamin D3) haloperidol 5 mg tablet 5 mg PO TID 08/15/24 02/11/25 12/06/24 20:00 History haloperidol decanoate 100 mg/mL 75 mg IM Q28D 08/15/24 02/11/25 10/05/24 History intramuscular solution prazosin 1 mg capsule 1 mg PO BEDTIME 08/15/24 02/11/25 12/06/24 20:00 History calcium 600 mg (as 1 tab PO BID 11/02/24 02/11/25 12/06/24 20:00 History carbonate)-vitamin D3 10 mcg (400 unit) tablet fluticasone propionate 230 2 puff inhalation BID 11/02/24 02/11/25 12/06/24 20:00 History mcg-salmeterol 21 mcg/actuation HFA inhaler (Advair HFA) cetirizine 10 mg tablet 10 mg PO DAILY 11/06/24 02/11/25 12/06/24 08:00 History duloxetine 30 mg capsule,delayed 30 mg PO DAILY 11/06/24 02/11/25 12/06/24 09:00 History release diphenhydramine HCl 50 mg capsule 100 mg PO BEDTIME insomnia 12/03/24 02/11/25 12/06/24 20:00 History (Banophen) umeclidinium 62.5 mcg/actuation 1 inh inhalation DAILY 12/03/24 02/11/25 12/06/24 08:00 History blister powder for inhalation (Incruse Ellipta) acetaminophen 500 mg tablet 1,000 mg PO Q6H PRN Pain 02/12/25 02/12/25 Unknown History bacitracin zinc 500 unit/gram 1 appl topical BID PRN Wound Care 02/12/25 02/12/25 Unknown History topical ointment fluticasone propionate 50 2 spray intranasal DAILY 02/12/25 02/12/25 Unknown History mcg/actuation nasal spray,suspension ibuprofen 600 mg tablet 600 mg PO TID PRN Pain 02/12/25 02/12/25 Unknown History polyethylene glycol 3350 17 17 g PO DAILY PRN Constipation 02/12/25 02/12/25 Unknown History gram/dose oral powder (Miralax) sennosides 8.6 mg tablet (senna) 17.2 mg PO BEDTIME PRN No Bm in 3 02/12/25 02/12/25 Unknown History Days/ Exam Height,Weight and Vital Signs: Height 4 ft 11 in Weight 88 kg Last Vital Signs Temp 97.8 F 03/05/25 07:20 Pulse 65 03/05/25 07:35 Resp 15 03/05/25 07:35 BP 105/85 03/05/25 07:35 Pulse Ox 94 03/05/25 07:35 O2 Del Method Room Air 03/05/25 07:35 O2 Flow Rate 2 03/05/25 07:30 Pertinent Lab Results Pertinent Lab Results: Laboratory Tests 03/05/25 06:20 Urine Test NEGATIVE Airway Mallampati Class: III TM Dist: >3cm Loose/Missing/Broken Teeth: Yes Heart: RRR Lungs: CTA Assessment and Plan Assessment Anesthesia Assessment: Anesthesia Plan Discussed and Chart Reviewed Final Anesthetic Review Family History of Problems with Anesthesia: No History of Problems with Anesthesia: No ASA Class: III Final Preanesthetic Review: Meds/Allgs Chart Reviewed, Consent Obtained/Reviewed and Anes Risks/Benef Reviewed Patient Risk: Intermediate Procedure Risk: Intermediate Anesthetic Plan Anesthetic Plan: GA Disposition: Standard PACU
== END 2025-03-05 08:42 | disposition home or self-care (01) ==
PROVIDERS: Anesthesiology; PCP Nurse Practitioner Family; Visit Provider Psychiatry & Neurology Psychiatry
PROC: (CPT 90870; principal; 2025-03-05 07:30)
DX: F25.1 Schizoaffective disorder, depressive type (principal); F43.12 Post-traumatic stress disorder, chronic; F60.3 Borderline personality disorder; R45.851 Suicidal ideations; Z91.51 Personal history of suicidal behavior; J44.9 Chronic obstructive pulmonary disease, unspecified; K21.9 Gastro-esophageal reflux disease without esophagitis; Z79.51 Long term (current) use of inhaled steroids; Z79.899 Other long term (current) drug therapy
CPT/HCPCS: 81025; 90870; J0330; J1642; J2405; J2704

== ENCOUNTER → 2025-03-05 05:56 | Outpatient (BNV) | payer OTHER, SELFPAY | PROVIDERS: PCP Nurse Practitioner Family; Visit Provider Psychiatry & Neurology Psychiatry | DX: F33.2 Major depressive disorder, recurrent severe without psychotic features (principal) | CPT/HCPCS: 90870 ==

== ENCOUNTER 2025-03-19 05:55 | Day surgery (SDC) | payer OTHER, SELFPAY ==
--- OUTSIDE RECORDS SUMMARY | 2025-03-06 15:23 | XMS_ITS | Clinical Summary ---
Author Organization [facility] Address [address] [place] [id number] Phone Care Team Providers Care Cashier Wrapper Name Role Phone Carroll Gaviria MD Primary Care Provider + Allergies Active Allergy Reactions Criticality Noted Date Comments Carbamazepine Rash,Nausea and/or Vomiting Low 05/30 Topiramate Nausea and/or Vomiting 05/30/2017 Medications fluticasone propionate (FLONASE) 50 mcg/actuation nasal spray 1 spray by Nasal route daily. Active doxepin (SINEQUAN) 50 MG capsule Take 50 mg by mouth nightly. Active propranolol (INDERAL) 10 MG immediate release tablet Take 10 mg by mouth 3 (three) times a day. Active gabapentin (NEURONTIN) 600 MG tablet Take 600 mg by mouth 2 (two) times a day. Active loratadine (CLARITIN) 10 mg tablet Take 10 mg by mouth daily. Active omeprazole (PRILOSEC) 40 MG capsule Take 40 mg by mouth daily. Active polyethylene glycol (MIRALAX) 17 gram packet Take 17 g by mouth daily. Active senna (SENOKOT) 8.6 mg tabletIndicatio ns:constipation Take 1 tablet by mouth daily. Indications: constipation Active temazepam (RESTORIL) 30 mg capsule Take 30 mg by mouth nightly as needed for sleep. Active escitalopram oxalate (LEXAPRO) 20 MG tablet Take 20 mg by mouth daily. Active red yeast rice 600 mg Cap Take 600 mg by mouth 2 (two) times a day. Active haloperidol (HALDOL) 10 MG tablet Take 10 mg by mouth 3 (three) times a day. Active benztropine (COGENTIN) 0.5 MG tabletIndicatio ns:with haldol Take 0.5 mg by mouth 3 (three) times a day. Indications: with haldol Active cholecalciferol (VITAMIN D3) 10,000 unit tablet Take 1,000 Units by mouth daily. Active prazosin (MINIPRESS) 2 MG capsule Take 4 mg by mouth nightly. Active acyclovir (ZOVIRAX) 200 MG capsuleIndicati ons:only when she has an outbreak Take by mouth every 4 (four) hours while awake. Indications: only when she has an outbreak Active risperiDONE (RISPERDAL) 2 MG tablet Take 2 mg by mouth 3 (three) times a day. Active mirtazapine (REMERON) 15 MG tablet Take 15 mg by mouth nightly. Active docusate sodium (COLACE) 100 MG capsule Take 100 mg by mouth 2 (two) times a day. Active albuterol 90 mcg/actuation inhaler Inhale 2 puffs into the lungs. Active ondansetron (ZOFRAN) 4 MG tablet Take 4 mg by mouth every 8 (eight) hours as needed for nausea. Active LORazepam (ATIVAN) 2 MG tablet Take 2 mg by mouth 2 (two) times a day. Active prazosin (MINIPRESS) 1 MG capsule TAKE 1 CAPSULE BY MOUTH every NIGHT AT bedtime TAKE WITH 3 OF 5mg CAPSULES TDD 16mg hold IF SBP<90 4 Active prazosin (MINIPRESS) 5 MG capsule TAKE 3 capsules by MOUTH AT bedtime (TAKE WITH additional 1mg capsule FOR A total OF 16mg hold IF sbp <90 4 Active nystatin cream Apply topically 2 (two) times a day. Apply until rash is cleared. 60 g 4 Active Active Problems Problem Noted Date Diagnosed Date MDD (major depressive disord er), recurrent severe, without psychosis 06/18/2017 Family History Medical History Relation Comments Alcohol abuse Brother Drug abuse Brother Alcohol abuse Father Drug abuse Father Alcohol abuse Mother Drug abuse Mother Alcohol abuse Sister Depression Sister Drug abuse Sister Relation Status Comments Brother Father Mother Sister Social History Tobacco Use Types Packs/Day Years Used Date Smoking Tobacco: Every Day Smokeless Tobacco: Never Tobacco Cessation:Ready to Q uit: Not Asked; Counseling Given: Not Answered Alcohol Use Standard Drinks/Week Comments No 0 (1 standard drink = 0.6 oz pur e alcohol) Education Answer Date Recorded Are you interested in more education? Not on taina e 12/11/2022 Are you concerned about learning? Not on file 12/11/2022 No 12/11/2022 No 12/11/2022 Digital Access Answer Date Recorded No 01/08/2023 No 01/08/2023 Reliable internet access at home? Not on file 01/08/2023 Device with a working camera? Not on file Comments No Sex and Gender Information Value Date Recorded Sex Assigned at Female 09/02/2020 3:52 PM EST Legal Sex Female 9:13 PM EDT Gender Identity Female 09/02/2020 3:52 PM EST Sexual Orientation Bisexual 09/02/2020 3: 52 PM EST Last Filed Vital Signs Vital Sign Reading Time Taken Comments Blood Pressure 140/84 12/20/2023 1:52 PM EDT Pulse 100 12/20/2023 1:52 PM EDT Temperature 36.7 C (98.1 F) 12/20/2023 1:52 PM EDT Respiratory Rate 20 12/20/2023 1:52 PM EDT Oxygen Saturation 98% 12/20/2023 1:52 PM EDT Inhaled Oxygen Concentration - - Weight 127 kg (280 lb) 09/02/2020 3:53 PM EST Height 149.9 cm (4' 11 ) 09/02/2020 3:53 PM EST Body Mass Index 56.55 09/02/2020 3:53 PM EST Plan of Treatment Health Maintenance Due Date Last Done Comments DEPRESSION SCREENING 1998 SMOKING Hx and SMOKELESS TOBACCO SCREENING 1999 HEPATITIS C SCREENING 2004 HIV ONE-TIME SCREENING (18-65 YEARS) 2004 PNEUMOCOCCAL VACCINES (0-49 years) (1 of 2 - PCV) 2005 PAP SMEAR 2007 COVID-19 VACCINE ( season) 2024 09/20/2020, 08/30/2020 Adult Td,Tdap Booster 10/13/2030 10/13/2020 , 07/10/2015, 12/18/2014, Additional history exists HIB VACCINES Completed 11/21/1988 HEPATITIS A VACCINES Aged Out No long er eligible based on patient's age to complete this topic MENINGOCOCCAL VACCINES (ACWY) Aged Out No longer eligible based on patient's age to complete this topic MENINGOCOCCAL VACCINES (B) Aged Out N o longer eligible based on patient's age to complete this topic Medical Devices Not on file Insurance [employer] [facility] [place] [facility] [place] [facility] [place] [facility] [place] [facility] [place] [facility] [place] [facility] Spot[facility] [place] [facility] Care Teams Cashier Wrapper Relationship Specialty Start Date End Date Carroll Gaviria MD [address] [place] [id number] PCP - General Internal Medicine 12/20/23 Additional Source Comments The information contained in this document represents components of the legal health record. It is not the complete legal health record.[facility]
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
[2025-03-19 06:15] VITALS: BP 119/84; PULSE 80; RESP 20; TEMP 36.3; O2SAT 98; BMI 40.1
[2025-03-19 06:32] LABS: UPreg QC Valid YES
--- NOTE | 2025-03-19 07:07 | HO.ANESPROP2 ---
[facility] Active Problems Active Problems: All Active Problems (Updated 02/12/25 @ 16:59 by Cassandra Gonzales DO) Chronic post-traumatic stress disorder (PTSD) (Acute) MDD (major depressive disorder), recurrent, severe, with psychosis (Acute) Osteoarthritis of right knee (Acute) Chronic post-traumatic stress disorder (PTSD) (Chronic) Borderline personality disorder (Chronic) Auditory hallucinations (Acute) Port-A-Cath in place (Acute) Intentional self-harm (Acute) COPD (chronic obstructive pulmonary disease) (Acute) Asthma (Acute) Adjustment disorder (Acute) Injury of ligament of right knee (Acute) Sprain of anterior cruciate ligament of right knee (Acute) Hernia (Chronic) Increased BMI (Acute) GERD (gastroesophageal reflux disease) (Acute) Past Medical History Medical History Depression Schizoaffective disorder, depressive type Depression with suicidal ideation MDD (major depressive disorder), recurrent, severe, with psychosis Port-A-Cath in place History of electroconvulsive therapy COVID-19 COVID-19 Sprain of left foot Chronic post-traumatic stress disorder (PTSD) COPD (chronic obstructive pulmonary disease) Increased BMI GERD (gastroesophageal reflux disease) Recurrent major depression-severe Acute post-traumatic stress disorder Injury, self-inflicted Suicidal ideation Self-harming behavior Intentional self-harm Suicidal ideation Borderline personality disorder Schizoaffective disorder Adjustment disorder Asthma Depression Anxiety PTSD (post-traumatic stress disorder) Family History Family History Mother Brain cancer Other No family history of cardiac disease Family history of problems with anesthesia: No Surgical History History of Problems with Anesthesia: No Social History Social History Household Members: Other Household Members Other:: [employer] Housing: Other Housing Other:: [employer] Do you presently have visiting nurse or other home services: No Unable to assess alcohol history related to: Unable to respond Alcohol intake: current Alcohol intake frequency: does not drink Patient Tobacco Use Status: Current everyday Tobacco user Tobacco use type: Cigarette Cigarette Packs Per Day: 0.5 Cigarettes Per Day: 10.0 Years Smoked: 20 Smoked in Last 30 Days: Yes e-Cigarette/Vaping Use: Never Used Second Hand Smoke Exposure: No Use of substances other than those prescribed or required for medical reasons: No Substance Use Type: Marijuana Advance Directives: No Advance Directives Information Provided: Yes service: No Current occupation: rt handed Sexual orientation: Straight/Heterosexual Meds Allergies Allergy/AdvReac Type Severity Reaction Status Date / Time carbamazepine (From TEGRETOL) AdvReac Mild Nausea and Verified 02/10/25 20:44 Vomiting topiramate (From Topamax) AdvReac Mild Nausea and Verified 02/10/25 20:44 Vomiting Home Medications ?Medication ?Instructions ?Recorded ?Confirmed ?Last Taken ?Type benztropine 0.5 mg tablet 0.5 mg PO BID 04/30/24 02/11/25 12/06/24 20:00 History clonidine HCl 0.1 mg tablet 0.1 mg PO TID 04/30/24 02/11/25 12/06/24 20:00 History omeprazole 20 mg capsule,delayed 20 mg PO Q OTHER DAY 04/30/24 02/11/25 10/05/24 History release prazosin 5 mg capsule 15 mg PO BEDTIME 04/30/24 02/11/25 12/06/24 20:00 History trazodone 100 mg tablet 200 mg PO BEDTIME insomnia 04/30/24 02/11/25 10/05/24 History multivitamin 1 tab PO DAILY 05/17/24 02/11/25 12/06/24 08:00 History zolpidem 10 mg tablet 10 mg PO BEDTIME insomnia 05/17/24 02/11/25 12/06/24 20:00 History cholecalciferol (vitamin D3) 25 25 mcg PO DAILY 07/29/24 02/11/25 12/06/24 08:00 History mcg (1,000 unit) tablet (Vitamin D3) haloperidol 5 mg tablet 5 mg PO TID 08/15/24 02/11/25 12/06/24 20:00 History haloperidol decanoate 100 mg/mL 75 mg IM Q28D 08/15/24 02/11/25 10/05/24 History intramuscular solution prazosin 1 mg capsule 1 mg PO BEDTIME 08/15/24 02/11/25 12/06/24 20:00 History calcium 600 mg (as 1 tab PO BID 11/02/24 02/11/25 12/06/24 20:00 History carbonate)-vitamin D3 10 mcg (400 unit) tablet fluticasone propionate 230 2 puff inhalation BID 11/02/24 02/11/25 12/06/24 20:00 History mcg-salmeterol 21 mcg/actuation HFA inhaler (Advair HFA) cetirizine 10 mg tablet 10 mg PO DAILY 11/06/24 02/11/25 12/06/24 08:00 History duloxetine 30 mg capsule,delayed 30 mg PO DAILY 11/06/24 02/11/25 12/06/24 09:00 History release diphenhydramine HCl 50 mg capsule 100 mg PO BEDTIME insomnia 12/03/24 02/11/25 12/06/24 20:00 History (Banophen) umeclidinium 62.5 mcg/actuation 1 inh inhalation DAILY 12/03/24 02/11/25 12/06/24 08:00 History blister powder for inhalation (Incruse Ellipta) acetaminophen 500 mg tablet 1,000 mg PO Q6H PRN Pain 02/12/25 02/12/25 Unknown History bacitracin zinc 500 unit/gram 1 appl topical BID PRN Wound Care 02/12/25 02/12/25 Unknown History topical ointment fluticasone propionate 50 2 spray intranasal DAILY 02/12/25 02/12/25 Unknown History mcg/actuation nasal spray,suspension ibuprofen 600 mg tablet 600 mg PO TID PRN Pain 02/12/25 02/12/25 Unknown History polyethylene glycol 3350 17 17 g PO DAILY PRN Constipation 02/12/25 02/12/25 Unknown History gram/dose oral powder (Miralax) sennosides 8.6 mg tablet (senna) 17.2 mg PO BEDTIME PRN No Bm in 3 02/12/25 02/12/25 Unknown History Days/ Exam Height,Weight and Vital Signs: Height 4 ft 11 in Weight 90 kg Last Vital Signs Temp 97.3 F 03/19/25 06:15 Pulse 80 03/19/25 06:15 Resp 20 03/19/25 06:15 BP 119/84 03/19/25 06:15 Pulse Ox 98 03/19/25 06:15 O2 Del Method Room Air 03/19/25 06:15 Pertinent Lab Results Pertinent Lab Results: Laboratory Tests 03/19/25 06:25 Urine Test NEGATIVE Airway Mallampati Class: III TM Dist: >3cm Loose/Missing/Broken Teeth: Yes, Upper and Lower Heart: RRR Lungs: CTA Assessment and Plan Assessment Anesthesia Assessment: Anesthesia Plan Discussed and Chart Reviewed Final Anesthetic Review Family History of Problems with Anesthesia: No History of Problems with Anesthesia: No NPO: Yes ASA Class: III Final Preanesthetic Review: Meds/Allgs Chart Reviewed, Consent Obtained/Reviewed and Anes Risks/Benef Reviewed Patient Risk: Intermediate Procedure Risk: Intermediate Anesthetic Plan Anesthetic Plan: GA Disposition: Standard PACU
--- NOTE | 2025-03-19 07:12 | MHC.SHP ---
Pre-Procedural Eval Section A - 24 Hr Update-Section A only Date of Service: 03/19/25 Section B - Complete if H&P > 30 days Chief Complaint: depression Details of Present Illness: doing ok with present treatment regimen Allergies: Allergies Allergy/AdvReac Type Severity Reaction Status Date / Time carbamazepine (From TEGRETOL) AdvReac Mild Nausea and Verified 02/10/25 20:44 Vomiting topiramate (From Topamax) AdvReac Mild Nausea and Verified 02/10/25 20:44 Vomiting Review of Systems Sugical H&P ROS: Negative: Constitution, Cardiovascular, Respiratory, Neurological, Psychiatric, Hem-Onc, Allergic/Immunologic, Gastrointestinal, Genitourinary, Musculoskeletal, Integumentary, Endocrine and Eyes/Ears/Nose/Throat Exam Surgical H&P Exam: Normal: HEENT, Normal: Heart, Normal: Lungs and Normal: Neurological Plan Diagnosis/Plan: Unchanged I have reviewed the history and physical and performed a pertinent physical examination on my patient. No changes have occurred unless specified. Time Spent With Patient Time: Total time managing care of this patient today ____ minutes.
--- NOTE | 2025-03-19 07:13 | HO.ECTPROC ---
ECT Procedure Note Diagnosis/Treatment Date of Service: 03/19/25 Diagnosis: Major Depressive Disorder Previous ECT Date: 03/05/25 Treatment: Maintenance Interval Clinical Notes: pt reports doing well in the interval, feels stable no c/o cognitive side effects feels helpful. Has new living situation Time: Total time managing care of this patient today ____ minutes. ECT Settings Device: uationTHYMATRON DGx Electrode Placement: Bitemporal Program/Pulse Width: 0.50 Energy Percent: 100 Seizure Duration By EEG (in seconds): 26 Medications Administration General Anesthetic: Etomidate (14) Muscle Relaxant: Succinylcholine (80) Ancillary Medications Anti-emetics: Zofran - Pre ECT Miscillaneous Medications: Propofol Airway Management Airway Management: Bag Mask Ventilation Treatment Recommendations No Changes Recommended: No change Notes: RTC in 2 weeks Pt Tolerated Procedure w/o Issue: Yes
[2025-03-19 07:30] VITALS: BP 145/91; PULSE 90; RESP 18; TEMP 36.2; O2SAT 96
[2025-03-19 07:35] VITALS: BP 151/87; PULSE 86; RESP 18; O2SAT 96
[2025-03-19 07:40] VITALS: BP 130/86; PULSE 79; RESP 17; O2SAT 96
[2025-03-19 07:45] VITALS: BP 122/77; PULSE 80; RESP 22; O2SAT 96
[2025-03-19 07:54] VITALS: BP 118/76; PULSE 82; RESP 18; TEMP 36.1; O2SAT 96
== END 2025-03-19 08:29 | disposition home or self-care (01) ==
PROVIDERS: PCP Nurse Practitioner Family; Visit Provider Psychiatry & Neurology Psychiatry
PROC: (CPT 90870; principal; 2025-03-19 07:00)
DX: F25.1 Schizoaffective disorder, depressive type (principal); F43.10 Post-traumatic stress disorder, unspecified; F60.3 Borderline personality disorder; R45.851 Suicidal ideations; Z91.51 Personal history of suicidal behavior; J44.9 Chronic obstructive pulmonary disease, unspecified; K21.9 Gastro-esophageal reflux disease without esophagitis; Z79.51 Long term (current) use of inhaled steroids; Z79.899 Other long term (current) drug therapy; Z88.8 Allergy status to other drugs, medicaments and biological substances; F17.210 Nicotine dependence, cigarettes, uncomplicated
CPT/HCPCS: 81025; 90870; J0330; J1642; J2405; J2704

== ENCOUNTER → 2025-03-19 05:55 | Outpatient (BNV) | payer OTHER, SELFPAY | PROVIDERS: PCP Nurse Practitioner Family; Visit Provider Psychiatry & Neurology Psychiatry | DX: F33.2 Major depressive disorder, recurrent severe without psychotic features (principal) | CPT/HCPCS: 90870 ==

== ENCOUNTER 2025-04-02 05:44 | Day surgery (SDC) | payer OTHER, SELFPAY ==
--- OUTSIDE RECORDS SUMMARY | 2025-03-19 09:09 | XMS_ITS | Patient Health Record ---
Author Organization [facility] Address [address] [facility] [address] [place] [address] Care Team Providers Care Tapper Operator Name Role Phone COLETTE BRADY NP Primary Care Provider Adele Meier Unavailable [phone] Reason For Referral No Information Encounters Encounter Location Date Provider Diagnosis [facility] [address] [facility] [address] [place] [address] 03/09/2025 Adele Fairchild Plan Of Treatment No Information Insurance Providers Payer Name Payer Address Payer Phone Subscriber Number Group Number Insured Name Patient Relationship to Insured Coverage Start Date Coverage End Date [facility] [id number] [place] [id number] MELISA THORNTON Self - patient is the insured
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
--- OUTSIDE RECORDS SUMMARY | 2025-03-19 09:10 | XMS_ITS | Clinical Summary ---
Author Organization [facility] Address [address] [place] [phone] Phone Care Team Providers Care Longwall Foreman Name Role Phone Carroll Gaviria MD Primary [...] topic Medical Devices Not on file Insurance [facility] [place] [facility] [employer] [facility] [place] [facility] [place] [facility] [employer] [facility] [place] [facility] [employer] [facility] [facility] [employer] [facility] [place] [facility] [employer] [facility] [place] [facility] [employer] [facility] Care Teams Longwall Foreman Relationship Specialty Start Date End Date Carroll Gaviria MD [address] [place] [phone] PCP - General Internal Medicine 12/20/23 Additional Source Comments The information contained in this document represents components of the legal health record. It is not the complete legal health record.[facility]
[2025-04-02] VITALS (8 sets, daily range): BP systolic 117–144; BP diastolic 72–84; PULSE 72–85; RESP 16–18; TEMP 36.4–36.8; O2SAT 96–98; BMI 40.2
[2025-04-02 06:46] LABS: UPreg QC Valid YES
--- NOTE | 2025-04-02 06:51 | HO.ANESPROP2 ---
[facility] Active Problems Active Problems: All Active Problems Chronic post-traumatic stress disorder (PTSD) (Acute) MDD (major depressive disorder), recurrent, severe, with psychosis (Acute) Osteoarthritis of right knee (Acute) Chronic post-traumatic stress disorder (PTSD) (Chronic) Borderline personality disorder (Chronic) Auditory hallucinations (Acute) Port-A-Cath in place (Acute) Intentional self-harm (Acute) COPD (chronic obstructive pulmonary disease) (Acute) Asthma (Acute) Adjustment disorder (Acute) Injury of ligament of right knee (Acute) Sprain of anterior cruciate ligament of right knee (Acute) Hernia (Chronic) Increased BMI (Acute) GERD (gastroesophageal reflux disease) (Acute) Past Medical History Medical History Depression Schizoaffective disorder, depressive type Depression with suicidal ideation MDD (major depressive disorder), recurrent, severe, with psychosis Port-A-Cath in place History of electroconvulsive therapy COVID-19 COVID-19 Sprain of left foot Chronic post-traumatic stress disorder (PTSD) COPD (chronic obstructive pulmonary disease) Increased BMI GERD (gastroesophageal reflux disease) Recurrent major depression-severe Acute post-traumatic stress disorder Injury, self-inflicted Suicidal ideation Self-harming behavior Intentional self-harm Suicidal ideation Borderline personality disorder Schizoaffective disorder Adjustment disorder Asthma Depression Anxiety PTSD (post-traumatic stress disorder) Family History Family History Mother Brain cancer Other No family history of cardiac disease Family history of problems with anesthesia: No Surgical History History of Problems with Anesthesia: No Social History Social History Household Members: Other Household 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 [employer] Housing: Other Housing Other:: NURSING HOME Do you presently have visiting nurse or other home services: No Unable to assess alcohol history related to: Unable to respond Alcohol intake: current Alcohol intake frequency: does not drink Patient Tobacco Use Status: Current everyday Tobacco user Tobacco use type: Cigarette Cigarette Packs Per Day: 0.5 Cigarettes Per Day: 10.0 Years Smoked: 20 e-Cigarette/Vaping Use: Never Used Second Hand Smoke Exposure: No Substance Use Type: Marijuana Advance Directives: No Advance Directives Information Provided: Yes service: No Current occupation: rt handed Sexual orientation: Straight/Heterosexual Meds Allergies Allergy/AdvReac Type Severity Reaction Status Date / Time carbamazepine (From TEGRETOL) AdvReac Mild Nausea and Verified 02/10/25 20:44 Vomiting topiramate (From Topamax) AdvReac Mild Nausea and Verified 02/10/25 20:44 Vomiting Active Medications: Current Medications Lactated Ringer's (Lr) 1,000 mls @ 50 mls/hr IVCONT .Q20H SULEIMAN Naloxone HCl (Naloxone Hcl 0.4 Mg/Ml Vial) 0.04 mg IVPUSH Q5M PRN PRN Reason: Excessive sedation or RR < 8 Home Medications ?Medication ?Instructions ?Recorded ?Confirmed ?Last Taken ?Type benztropine 0.5 mg tablet 0.5 mg PO BID 04/30/24 02/11/25 12/06/24 20:00 History clonidine HCl 0.1 mg tablet 0.1 mg PO TID 04/30/24 02/11/25 12/06/24 20:00 History omeprazole 20 mg capsule,delayed 20 mg PO Q OTHER DAY 04/30/24 02/11/25 10/05/24 History release prazosin 5 mg capsule 15 mg PO BEDTIME 04/30/24 02/11/25 12/06/24 20:00 History trazodone 100 mg tablet 200 mg PO BEDTIME insomnia 04/30/24 02/11/25 10/05/24 History multivitamin 1 tab PO DAILY 05/17/24 02/11/25 12/06/24 08:00 History zolpidem 10 mg tablet 10 mg PO BEDTIME insomnia 05/17/24 02/11/25 12/06/24 20:00 History cholecalciferol (vitamin D3) 25 25 mcg PO DAILY 07/29/24 02/11/25 12/06/24 08:00 History mcg (1,000 unit) tablet (Vitamin D3) haloperidol 5 mg tablet 5 mg PO TID 08/15/24 02/11/25 12/06/24 20:00 History haloperidol decanoate 100 mg/mL 75 mg IM Q28D 08/15/24 02/11/25 10/05/24 History intramuscular solution prazosin 1 mg capsule 1 mg PO BEDTIME 08/15/24 02/11/25 12/06/24 20:00 History calcium 600 mg (as 1 tab PO BID 11/02/24 02/11/25 12/06/24 20:00 History carbonate)-vitamin D3 10 mcg (400 unit) tablet fluticasone propionate 230 2 puff inhalation BID 11/02/24 02/11/25 12/06/24 20:00 History mcg-salmeterol 21 mcg/actuation HFA inhaler (Advair HFA) cetirizine 10 mg tablet 10 mg PO DAILY 11/06/24 02/11/25 12/06/24 08:00 History duloxetine 30 mg capsule,delayed 30 mg PO DAILY 11/06/24 02/11/25 12/06/24 09:00 History release diphenhydramine HCl 50 mg capsule 100 mg PO BEDTIME insomnia 12/03/24 02/11/25 12/06/24 20:00 History (Banophen) umeclidinium 62.5 mcg/actuation 1 inh inhalation DAILY 12/03/24 02/11/25 12/06/24 08:00 History blister powder for inhalation (Incruse Ellipta) acetaminophen 500 mg tablet 1,000 mg PO Q6H PRN Pain 02/12/25 02/12/25 Unknown History bacitracin zinc 500 unit/gram 1 appl topical BID PRN Wound Care 02/12/25 02/12/25 Unknown History topical ointment fluticasone propionate 50 2 spray intranasal DAILY 02/12/25 02/12/25 Unknown History mcg/actuation nasal spray,suspension ibuprofen 600 mg tablet 600 mg PO TID PRN Pain 02/12/25 02/12/25 Unknown History polyethylene glycol 3350 17 17 g PO DAILY PRN Constipation 02/12/25 02/12/25 Unknown History gram/dose oral powder (Miralax) sennosides 8.6 mg tablet (senna) 17.2 mg PO BEDTIME PRN No Bm in 3 02/12/25 02/12/25 Unknown History Days/ Exam Height,Weight and Vital Signs: Height 4 ft 11 in Weight 90.265 kg Last Vital Signs Temp 97.7 F 04/02/25 06:40 Pulse 81 04/02/25 06:40 Resp 16 04/02/25 06:40 BP 132/75 04/02/25 06:40 Pulse Ox 96 04/02/25 06:40 O2 Del Method Room Air 04/02/25 06:40 Pertinent Lab Results Pertinent Lab Results: Laboratory Tests 04/02/25 06:15 Urine Test NEGATIVE Airway Mallampati Class: II (missing a couple, poor dentition, denies anything loose) TM Dist: >3cm Neck ROM: Full Heart: rrr Lungs: cta Assessment and Plan Assessment Anesthesia Assessment: Anesthesia Plan Discussed and Chart Reviewed Final Anesthetic Review Family History of Problems with Anesthesia: No History of Problems with Anesthesia: No NPO: Yes ASA Class: III Final Preanesthetic Review: No Changes in Pt Med Stat, Meds/Allgs Chart Reviewed and Consent Obtained/Reviewed Patient Risk: Intermediate Procedure Risk: Intermediate Anesthetic Plan Anesthetic Plan: GA Disposition: Standard PACU
--- NOTE | 2025-04-02 07:01 | MHC.SHP ---
Pre-Procedural Eval Section A - 24 Hr Update-Section A only Date of Service: 04/02/25 Section B - Complete if H&P > 30 days Chief Complaint: depression Details of Present Illness: feeling well Allergies: Allergies Allergy/AdvReac Type Severity Reaction Status Date / Time carbamazepine (From TEGRETOL) AdvReac Mild Nausea and Verified 02/10/25 20:44 Vomiting topiramate (From Topamax) AdvReac Mild Nausea and Verified 02/10/25 20:44 Vomiting Review of Systems Sugical H&P ROS: Negative: Constitution Exam Surgical H&P Exam: Normal: HEENT and Normal: Neurological Plan Diagnosis/Plan: Unchanged I have reviewed the history and physical and performed a pertinent physical examination on my patient. No changes have occurred unless specified. Time Spent With Patient Time: Total time managing care of this patient today __35__ minutes.
--- NOTE | 2025-04-02 08:06 | HO.ECTPROC ---
ECT Procedure Note Diagnosis/Treatment Date of Service: 04/02/25 Diagnosis: Major Depressive Disorder Previous ECT Date: 03/19/25 Treatment: Maintenance Interval Clinical Notes: doing very well Time: Total time managing care of this patient today __35__ minutes. ECT Settings Device: THYMATRON DGx Electrode Placement: Bitemporal Program/Pulse Width: 0.50 Energy Percent: 100 Seizure Duration By EEG (in seconds): 24 Medications Administration General Anesthetic: Etomidate (14) Muscle Relaxant: Succinylcholine (80) Ancillary Medications Anti-emetics: Zofran - Pre ECT (4) Miscillaneous Medications: Propofol (30) Airway Management Airway Management: Bag Mask Ventilation Treatment Recommendations No Changes Recommended: No change Notes: RTC in 2 weeks Pt Tolerated Procedure w/o Issue: Yes
== END 2025-04-02 10:21 | disposition home or self-care (01) ==
PROVIDERS: PCP Nurse Practitioner Family; Visit Provider Psychiatry & Neurology Psychiatry
PROC: (CPT 90870; principal; 2025-04-02 07:00)
DX: F33.2 Major depressive disorder, recurrent severe without psychotic features (principal); F43.10 Post-traumatic stress disorder, unspecified; F60.3 Borderline personality disorder; R45.851 Suicidal ideations; Z91.51 Personal history of suicidal behavior; J44.9 Chronic obstructive pulmonary disease, unspecified; J21.9 Acute bronchiolitis, unspecified; Z79.51 Long term (current) use of inhaled steroids; Z79.899 Other long term (current) drug therapy; Z88.8 Allergy status to other drugs, medicaments and biological substances; F17.210 Nicotine dependence, cigarettes, uncomplicated
CPT/HCPCS: 81025; 90870; J0330; J1642; J2405; J2704

== ENCOUNTER → 2025-04-02 05:44 | Outpatient (BNV) | payer OTHER, SELFPAY | PROVIDERS: PCP Nurse Practitioner Family; Visit Provider Psychiatry & Neurology Psychiatry | DX: F33.3 Major depressive disorder, recurrent, severe with psychotic symptoms (principal) | CPT/HCPCS: 90870 ==

== ENCOUNTER 2025-04-18 05:58 | Day surgery (SDC) | payer OTHER, SELFPAY ==
--- OUTSIDE RECORDS SUMMARY | 2025-04-02 09:39 | XMS_ITS | Patient Health Record ---
Author Organization [facility] Address [address] [place] [address] Care Team Providers Care Floor Polisher Name Role Phone COLETTE BRADY NP Primary Care Provider Adele Meier Unavailable [phone] Reason For Referral No Information Encounters Encounter Location Date Provider Diagnosis [facility] [address] [place] [address] 03/09/2025 Adele Fairchild Plan Of Treatment No Information Insurance Providers Payer Name Payer Address Payer Phone Subscriber Number Group Number Insured Name Patient Relationship to Insured Coverage Start Date Coverage End Date [facility] [address] [place] [id number] [phone] MELISA THORNTON Self - patient is the insured
--- OUTSIDE RECORDS SUMMARY | 2025-04-02 09:39 | XMS_ITS | Clinical Summary ---
Author Organization [facility] Address [address] [place] [phone] Phone Care Team Providers Care Paving And Surfacing Labourer Name Role Phone Carroll Gaviria MD Primary [...] topic Medical Devices Not on file Insurance WILLOW ISLANDAlere [facility] [facility] [employer] [facility] [place] [facility] [place] [facility] [employer] [facility] [place] [facility] [employer] [facility] [place] [facility] NouscoVETERANS [facility]ALTH [facility] [place] [facility] [employer] [facility] [place] [facility] [employer] [facility] [facility] [address] [facility] Care Teams Paving And Surfacing Labourer Relationship Specialty Start Date End Date Carroll Gaviria MD [address] [place] [phone] PCP - General Internal Medicine 12/20/23 Additional Source Comments The information contained in this document represents components of the legal health record. It is not the complete legal health record.[facility]
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
[2025-04-18] VITALS (7 sets, daily range): BP systolic 110–139; BP diastolic 70–89; PULSE 81–90; RESP 12–16; TEMP 36.1–36.9; O2SAT 95–99; BMI 66.8
[2025-04-18 06:30] LABS: UPreg QC Valid YES
--- NOTE | 2025-04-18 07:02 | HO.ANESPROP2 ---
HPI - Anesthesia Eval Consult details Narrative: for ECT PMFSH Active Problems Active Problems: All Active Problems Chronic post-traumatic stress disorder (PTSD) (Acute) MDD (major depressive disorder), recurrent, severe, with psychosis (Acute) Osteoarthritis of right knee (Acute) Chronic post-traumatic stress disorder (PTSD) (Chronic) Borderline personality disorder (Chronic) Auditory hallucinations (Acute) Port-A-Cath in place (Acute) Intentional self-harm (Acute) COPD (chronic obstructive pulmonary disease) (Acute) Asthma (Acute) Adjustment disorder (Acute) Injury of ligament of right knee (Acute) Sprain of anterior cruciate ligament of right knee (Acute) Hernia (Chronic) Increased BMI (Acute) GERD (gastroesophageal reflux disease) (Acute) Past Medical History Medical History Depression Schizoaffective disorder, depressive type Depression with suicidal ideation MDD (major depressive disorder), recurrent, severe, with psychosis Port-A-Cath in place History of electroconvulsive therapy COVID-19 COVID-19 Sprain of left foot Chronic post-traumatic stress disorder (PTSD) COPD (chronic obstructive pulmonary disease) Increased BMI GERD (gastroesophageal reflux disease) Recurrent major depression-severe Acute post-traumatic stress disorder Injury, self-inflicted Suicidal ideation Self-harming behavior Intentional self-harm Suicidal ideation Borderline personality disorder Schizoaffective disorder Adjustment disorder Asthma Depression Anxiety PTSD (post-traumatic stress disorder) Family History Family History Mother Brain cancer Other No family history of cardiac disease Family history of problems with anesthesia: No Surgical History History of Problems with Anesthesia: No Social History Social History Household Members: Other Household Members Other:: [employer] Housing: Other Housing Other:: [facility] Do you presently have visiting nurse or other home services: No Unable to assess alcohol history related to: Unable to respond Alcohol intake: current Alcohol intake frequency: does not drink Patient Tobacco Use Status: Current everyday Tobacco user Tobacco use type: Cigarette Cigarette Packs Per Day: 0.5 Cigarettes Per Day: 10.0 Years Smoked: 20 e-Cigarette/Vaping Use: Never Used Second Hand Smoke Exposure: No Substance Use Type: Marijuana Advance Directives: No Advance Directives Information Provided: Yes service: No Current occupation: rt handed Sexual orientation: Straight/Heterosexual Meds Allergies Allergy/AdvReac Type Severity Reaction Status Date / Time carbamazepine (From TEGRETOL) AdvReac Mild Nausea and Verified 02/10/25 20:44 Vomiting topiramate (From Topamax) AdvReac Mild Nausea and Verified 02/10/25 20:44 Vomiting Home Medications ?Medication ?Instructions ?Recorded ?Confirmed ?Last Taken ?Type benztropine 0.5 mg tablet 0.5 mg PO BID 04/30/24 02/11/25 12/06/24 20:00 History clonidine HCl 0.1 mg tablet 0.1 mg PO TID 04/30/24 02/11/25 12/06/24 20:00 History omeprazole 20 mg capsule,delayed 20 mg PO Q OTHER DAY 04/30/24 02/11/25 10/05/24 History release prazosin 5 mg capsule 15 mg PO BEDTIME 04/30/24 02/11/25 12/06/24 20:00 History trazodone 100 mg tablet 200 mg PO BEDTIME insomnia 04/30/24 02/11/25 10/05/24 History multivitamin 1 tab PO DAILY 05/17/24 02/11/25 12/06/24 08:00 History zolpidem 10 mg tablet 10 mg PO BEDTIME insomnia 05/17/24 02/11/25 12/06/24 20:00 History cholecalciferol (vitamin D3) 25 25 mcg PO DAILY 07/29/24 02/11/25 12/06/24 08:00 History mcg (1,000 unit) tablet (Vitamin D3) haloperidol 5 mg tablet 5 mg PO TID 08/15/24 02/11/25 12/06/24 20:00 History haloperidol decanoate 100 mg/mL 75 mg IM Q28D 08/15/24 02/11/25 10/05/24 History intramuscular solution prazosin 1 mg capsule 1 mg PO BEDTIME 08/15/24 02/11/25 12/06/24 20:00 History calcium 600 mg (as 1 tab PO BID 11/02/24 02/11/25 12/06/24 20:00 History carbonate)-vitamin D3 10 mcg (400 unit) tablet fluticasone propionate 230 2 puff inhalation BID 11/02/24 02/11/25 12/06/24 20:00 History mcg-salmeterol 21 mcg/actuation HFA inhaler (Advair HFA) cetirizine 10 mg tablet 10 mg PO DAILY 11/06/24 02/11/25 12/06/24 08:00 History duloxetine 30 mg capsule,delayed 30 mg PO DAILY 11/06/24 02/11/25 12/06/24 09:00 History release diphenhydramine HCl 50 mg capsule 100 mg PO BEDTIME insomnia 12/03/24 02/11/25 12/06/24 20:00 History (Banophen) umeclidinium 62.5 mcg/actuation 1 inh inhalation DAILY 12/03/24 02/11/25 12/06/24 08:00 History blister powder for inhalation (Incruse Ellipta) acetaminophen 500 mg tablet 1,000 mg PO Q6H PRN Pain 02/12/25 02/12/25 Unknown History bacitracin zinc 500 unit/gram 1 appl topical BID PRN Wound Care 02/12/25 02/12/25 Unknown History topical ointment fluticasone propionate 50 2 spray intranasal DAILY 02/12/25 02/12/25 Unknown History mcg/actuation nasal spray,suspension ibuprofen 600 mg tablet 600 mg PO TID PRN Pain 02/12/25 02/12/25 Unknown History polyethylene glycol 3350 17 17 g PO DAILY PRN Constipation 02/12/25 02/12/25 Unknown History gram/dose oral powder (Miralax) sennosides 8.6 mg tablet (senna) 17.2 mg PO BEDTIME PRN No Bm in 3 02/12/25 02/12/25 Unknown History Days/ Exam Height,Weight and Vital Signs: Height 4 ft Weight 99.337 kg Last Vital Signs Temp 97 F 04/18/25 06:25 Pulse 89 04/18/25 06:25 Resp 16 04/18/25 06:25 BP 139/89 04/18/25 06:25 Pulse Ox 98 04/18/25 06:25 O2 Del Method Room Air 04/18/25 06:25 Pertinent Lab Results Pertinent Lab Results: Laboratory Tests 04/18/25 06:20 Urine Test NEGATIVE Airway Mallampati Class: II TM Dist: <=3cm Neck ROM: Full Loose/Missing/Broken Teeth: Yes, Upper and Lower Heart: ok Lungs: ok Assessment and Plan Assessment Anesthesia Assessment: Anesthesia Plan Discussed and Chart Reviewed Final Anesthetic Review Family History of Problems with Anesthesia: No History of Problems with Anesthesia: No NPO: Yes ASA Class: III Final Preanesthetic Review: No Changes in Pt Med Stat, Meds/Allgs Chart Reviewed, Consent Obtained/Reviewed and Anes Risks/Benef Reviewed Patient Risk: Intermediate Procedure Risk: Intermediate Anesthetic Plan Anesthetic Plan: GA and Agree w/ Assess. and Plan Disposition: Standard PACU
--- NOTE | 2025-04-18 07:07 | MHC.SHP ---
Pre-Procedural Eval Section A - 24 Hr Update-Section A only Date of Service: 04/18/25 Changes since office visit: No Cold of Flu in the past 2 weeks, No New Medical Problems, No Changes in Medication and No Patient answered all questions The patient has been examined within 24 hours of the surgical procedure. The History & Physical has been completed within 30 days and I have reviewed it.: Yes Section B - Complete if H&P > 30 days Chief Complaint: depression Details of Present Illness: good mood Allergies: Allergies Allergy/AdvReac Type Severity Reaction Status Date / Time carbamazepine (From TEGRETOL) AdvReac Mild Nausea and Verified 02/10/25 20:44 Vomiting topiramate (From Topamax) AdvReac Mild Nausea and Verified 02/10/25 20:44 Vomiting Review of Systems Sugical H&P ROS: Negative: Constitution, Cardiovascular, Respiratory, Neurological, Psychiatric and Gastrointestinal Exam Surgical H&P Exam: Normal: Heart (RRR; no rubs/murmurs), Normal: Lungs (CTA b/l) and Normal: Neurological (CN2-12 grossly intact) Plan Diagnosis/Plan: Unchanged I have reviewed the history and physical and performed a pertinent physical examination on my patient. No changes have occurred unless specified. Time Spent With Patient Time: Total time managing care of this patient today ____ minutes.
--- NOTE | 2025-04-18 07:18 | P.PCN_ITS ---
ECT Procedure Note Diagnosis/Treatment Date of Service: 04/18/25 Diagnosis: Major Depressive Disorder Previous ECT Date: 04/02/25 Treatment: Maintenance Interval Clinical Notes: pt doing well, good mood. Recently moved to new retirement which she likes Time: Total time managing care of this patient today ____ minutes. ECT Settings Device: THYMATRON DGx Electrode Placement: Bitemporal Program/Pulse Width: 0.50 Energy Percent: 100 Seizure Duration By EEG (in seconds): 25 By Motor Observation (in seconds): 16 Medications Administration General Anesthetic: Etomidate (14) Muscle Relaxant: Succinylcholine (80) Ancillary Medications Anti-emetics: Zofran - Pre ECT (4) Airway Management Airway Management: Bag Mask Ventilation Treatment Recommendations No Changes Recommended: No change Electrode Placement: Bitemporal Program/Pulse Width: 0.50 Energy Percent: 100 Notes: good mood and doing well; continue w/ ECT [id number] pt did not get propofol for this treatment Pt Tolerated Procedure w/o Issue: Yes
== END 2025-04-18 08:43 | disposition home or self-care (01) ==
PROVIDERS: PCP Nurse Practitioner Family; Visit Provider Psychiatry & Neurology Psychiatry
PROC: (CPT 90870; principal; 2025-04-18 07:00)
DX: F33.2 Major depressive disorder, recurrent severe without psychotic features (principal); F43.10 Post-traumatic stress disorder, unspecified; F60.3 Borderline personality disorder; Z91.51 Personal history of suicidal behavior; J44.9 Chronic obstructive pulmonary disease, unspecified; Z79.51 Long term (current) use of inhaled steroids; Z79.899 Other long term (current) drug therapy; Z88.8 Allergy status to other drugs, medicaments and biological substances; F17.210 Nicotine dependence, cigarettes, uncomplicated
CPT/HCPCS: 81025; 90870; J0330; J1642; J2405; J2704

== ENCOUNTER → 2025-04-18 05:58 | Outpatient (BNV) | payer OTHER, SELFPAY | PROVIDERS: PCP Nurse Practitioner Family; Visit Provider Psychiatry & Neurology Psychiatry | DX: F33.2 Major depressive disorder, recurrent severe without psychotic features (principal) | CPT/HCPCS: 90870 ==

== ENCOUNTER 2025-05-02 05:44 | Day surgery (SDC) | payer OTHER, SELFPAY ==
--- OUTSIDE RECORDS SUMMARY | 2025-03-09 05:40 | XMS_ITS ---
Author Organization [employer] [facility] Address [address] [address] Care Team Providers Care Transit Bus Operator Name Role Phone JOSE ANTONIO MENON, COLETTE Primary Care Provider Adele Meier Unavailable [phone] REASON FOR VISIT Annual ACTIVITIES VOLUNTEER Physical Encounters Encounter Location Date Provider Diagnosis [facility] [employer] [facility] [address] [address] 03/09/2025 Adele Fairchild Plan Of Treatment No Information Progress Notes * MELISA THORNTONDOB:1985 (40 yo F)Acc No.[id number]:03/09/2025 Progress Note Patient: MELISA VIEIRA Appointment Provider: Jeffery Fairchild M.D. :1985 A ge:39 Y S ex:Female Date:03/09/2025 Address:[address] [place], [place] [phone] Pcp:COLETTE BRADY NP Subjective: * Chief Complaints: * 1 . Annual ACTIVITIES VOLUNTEER Physical. * Medical History: Objective: * Vitals: Assessment: Plan: * Treatment: * Images: Billing Information: * Visit Code: * Procedure Codes: * Electronic signature of Leon Fairchild MD on 04/18/2025 at 08:38 AM EDT Sign off status: Pending * Appointment Provider: Jeffery aFirchild M.D. Date: 0 03/09/2025 Generated for Lj marin/Jessika/Nickolasitting on: 04/18/2025 08:38 AM EDT
--- OUTSIDE RECORDS SUMMARY | 2025-04-18 08:38 | XMS_ITS | Clinical Summary ---
Author Organization [facility] Address [address] [place] [address] Phone Care Team Providers Care Cantilever Crane Operator Name Role Phone Carroll Gaviria MD Primary [...] 2 - PCV) 2005 PAP SMEAR 2007 INFLUENZA VACCINE (#1) 2025 , 05/23/2013, 04/22/2010, Additional history exists COVID-19 VACCINE ( - season) 2025 09/20/2020, 08/30/2020 Adult Td,Tdap Booster 10/13/2030 10/13/2020 [...] topic Medical Devices Not on file Insurance s0cket [facility] [place] [employer] [facility] [place] [employer] [facility] [place] [facility] [facility] [place] Member Subscriber Plan / Payer (Ef fective 2020-Present) Name:Stella Capps Relation to Subscriber:Self Name:Stella Capps Payer ID:[id number] Group ID:Not on file Type:Medicaid Address: [place] [address] [place] [address] [employer] [facility] [place] [facility] [employer] [facility] [place] [address] [address] [facility] [place] [facility] Care Teams Cantilever Crane Operator Relationship Specialty Start Date End Date Carroll Gaviria MD [address] [place] [id number] PCP - General Internal Medicine 12/20/23 Additional Source Comments The information contained in this document represents components of the legal health record. It is not the complete legal health record.[facility]
--- OUTSIDE RECORDS SUMMARY | 2025-04-18 08:38 | XMS_ITS | Patient Health Record ---
Author Organization [facility] Address [address] [place] [address] Care Team Providers Care Window Covering Sales Consultant Name Role Phone COLETTE BRADY NP Primary Care Provider Adele Meier Unavailable [phone] Reason For Referral No Information Encounters Encounter Location Date Provider Diagnosis [facility] [address] [place] [address] 03/09/2025 Adele Fairchild Plan Of Treatment No Information Insurance Providers Payer Name Payer Address Payer Phone Subscriber Number Group Number Insured Name Patient Relationship to Insured Coverage Start Date Coverage End Date [facility] [address] [place] [id number] [phone] MELISA THORNTON Self - patient is the insured
[2025-05-02] VITALS (7 sets, daily range): BP systolic 114–145; BP diastolic 63–93; PULSE 74–84; RESP 16; TEMP 36.3–36.8; O2SAT 96–98; BMI 39.4
[2025-05-02] MEDS: Lactated Ringers 1,000 ML 50 ML IVCONT (06:30)
--- NOTE | 2025-05-02 06:42 | HO.ANESPROP2 ---
[facility] Active Problems Active Problems: All Active Problems Chronic post-traumatic stress disorder (PTSD) (Acute) MDD (major depressive disorder), recurrent, severe, with psychosis (Acute) Osteoarthritis of right knee (Acute) Chronic post-traumatic stress disorder (PTSD) (Chronic) Borderline personality disorder (Chronic) Auditory hallucinations (Acute) Port-A-Cath in place (Acute) Intentional self-harm (Acute) COPD (chronic obstructive pulmonary disease) (Acute) Asthma (Acute) Adjustment disorder (Acute) Injury of ligament of right knee (Acute) Sprain of anterior cruciate ligament of right knee (Acute) Hernia (Chronic) Increased BMI (Acute) GERD (gastroesophageal reflux disease) (Acute) Past Medical History Medical History Depression Schizoaffective disorder, depressive type Depression with suicidal ideation MDD (major depressive disorder), recurrent, severe, with psychosis Port-A-Cath in place History of electroconvulsive therapy COVID-19 COVID-19 Sprain of left foot Chronic post-traumatic stress disorder (PTSD) COPD (chronic obstructive pulmonary disease) Increased BMI GERD (gastroesophageal reflux disease) Recurrent major depression-severe Acute post-traumatic stress disorder Injury, self-inflicted Suicidal ideation Self-harming behavior Intentional self-harm Suicidal ideation Borderline personality disorder Schizoaffective disorder Adjustment disorder Asthma Depression Anxiety PTSD (post-traumatic stress disorder) Family History Family History Mother Brain cancer Other No family history of cardiac disease Family history of problems with anesthesia: No Surgical History History of Problems with Anesthesia: No Social History Social History Household Members: Other Household Members Other:: [employer] Housing: Other Housing Other:: [facility] Do you presently have visiting nurse or other home services: No Unable to assess alcohol history related to: Unable to respond Alcohol intake: current Alcohol intake frequency: does not drink Patient Tobacco Use Status: Current everyday Tobacco user Tobacco use type: Cigarette Cigarette Packs Per Day: 0.5 Cigarettes Per Day: 10.0 Years Smoked: 20 e-Cigarette/Vaping Use: Never Used Second Hand Smoke Exposure: No Substance Use Type: Marijuana Advance Directives: No Advance Directives Information Provided: Yes service: No Current occupation: rt handed Sexual orientation: Straight/Heterosexual Meds Allergies Allergy/AdvReac Type Severity Reaction Status Date / Time carbamazepine (From TEGRETOL) AdvReac Mild Nausea and Verified 02/10/25 20:44 Vomiting topiramate (From Topamax) AdvReac Mild Nausea and Verified 02/10/25 20:44 Vomiting Home Medications ?Medication ?Instructions ?Recorded ?Confirmed ?Last Taken ?Type benztropine 0.5 mg tablet 0.5 mg PO BID 04/30/24 02/11/25 12/06/24 20:00 History clonidine HCl 0.1 mg tablet 0.1 mg PO TID 04/30/24 02/11/25 12/06/24 20:00 History omeprazole 20 mg capsule,delayed 20 mg PO Q OTHER DAY 04/30/24 02/11/25 10/05/24 History release prazosin 5 mg capsule 15 mg PO BEDTIME 04/30/24 02/11/25 12/06/24 20:00 History trazodone 100 mg tablet 200 mg PO BEDTIME insomnia 04/30/24 02/11/25 10/05/24 History multivitamin 1 tab PO DAILY 05/17/24 02/11/25 12/06/24 08:00 History zolpidem 10 mg tablet 10 mg PO BEDTIME insomnia 05/17/24 02/11/25 12/06/24 20:00 History cholecalciferol (vitamin D3) 25 25 mcg PO DAILY 07/29/24 02/11/25 12/06/24 08:00 History mcg (1,000 unit) tablet (Vitamin D3) haloperidol 5 mg tablet 5 mg PO TID 08/15/24 02/11/25 12/06/24 20:00 History haloperidol decanoate 100 mg/mL 75 mg IM Q28D 08/15/24 02/11/25 10/05/24 History intramuscular solution prazosin 1 mg capsule 1 mg PO BEDTIME 08/15/24 02/11/25 12/06/24 20:00 History calcium 600 mg (as 1 tab PO BID 11/02/24 02/11/25 12/06/24 20:00 History carbonate)-vitamin D3 10 mcg (400 unit) tablet fluticasone propionate 230 2 puff inhalation BID 11/02/24 02/11/25 12/06/24 20:00 History mcg-salmeterol 21 mcg/actuation HFA inhaler (Advair HFA) cetirizine 10 mg tablet 10 mg PO DAILY 11/06/24 02/11/25 12/06/24 08:00 History duloxetine 30 mg capsule,delayed 30 mg PO DAILY 11/06/24 02/11/25 12/06/24 09:00 History release diphenhydramine HCl 50 mg capsule 100 mg PO BEDTIME insomnia 12/03/24 02/11/25 12/06/24 20:00 History (Banophen) umeclidinium 62.5 mcg/actuation 1 inh inhalation DAILY 12/03/24 02/11/25 12/06/24 08:00 History blister powder for inhalation (Incruse Ellipta) acetaminophen 500 mg tablet 1,000 mg PO Q6H PRN Pain 02/12/25 02/12/25 Unknown History bacitracin zinc 500 unit/gram 1 appl topical BID PRN Wound Care 02/12/25 02/12/25 Unknown History topical ointment fluticasone propionate 50 2 spray intranasal DAILY 02/12/25 02/12/25 Unknown History mcg/actuation nasal spray,suspension ibuprofen 600 mg tablet 600 mg PO TID PRN Pain 02/12/25 02/12/25 Unknown History polyethylene glycol 3350 17 17 g PO DAILY PRN Constipation 02/12/25 02/12/25 Unknown History gram/dose oral powder (Miralax) sennosides 8.6 mg tablet (senna) 17.2 mg PO BEDTIME PRN No Bm in 3 02/12/25 02/12/25 Unknown History Days/ Exam Height,Weight and Vital Signs: Height 4 ft 11 in Weight 88.451 kg Last Vital Signs Temp 97.6 F 05/02/25 06:26 Pulse 82 05/02/25 06:26 Resp 16 05/02/25 06:26 BP 121/79 05/02/25 06:26 Pulse Ox 98 05/02/25 06:26 O2 Del Method Room Air 05/02/25 06:26 Airway Mallampati Class: III (missing a couple teeth) TM Dist: >3cm Neck ROM: Full Heart: rrr Lungs: cta Assessment and Plan Assessment Anesthesia Assessment: Anesthesia Plan Discussed and Chart Reviewed Final Anesthetic Review Family History of Problems with Anesthesia: No History of Problems with Anesthesia: No NPO: Yes ASA Class: III Final Preanesthetic Review: No Changes in Pt Med Stat, Meds/Allgs Chart Reviewed and Consent Obtained/Reviewed Patient Risk: Intermediate Procedure Risk: Intermediate Anesthetic Plan Anesthetic Plan: GA Disposition: Standard PACU
--- NOTE | 2025-05-02 06:53 | MHC.SHP ---
Pre-Procedural Eval Section A - 24 Hr Update-Section A only Date of Service: 05/02/25 Section B - Complete if H&P > 30 days Chief Complaint: depression Allergies: Allergies Allergy/AdvReac Type Severity Reaction Status Date / Time carbamazepine (From TEGRETOL) AdvReac Mild Nausea and Verified 02/10/25 20:44 Vomiting topiramate (From Topamax) AdvReac Mild Nausea and Verified 02/10/25 20:44 Vomiting Review of Systems Sugical H&P ROS: Negative: Constitution, Neurological and Psychiatric Exam Surgical H&P Exam: Normal: HEENT, Normal: Extremities and Normal: Neurological Plan Diagnosis/Plan: Unchanged I have reviewed the history and physical and performed a pertinent physical examination on my patient. No changes have occurred unless specified. Time Spent With Patient Time: Total time managing care of this patient today _35___ minutes.
[2025-05-02 07:07] LABS: UPreg QC Valid YES
--- NOTE | 2025-05-02 07:14 | HO.ECTPROC ---
ECT Procedure Note Diagnosis/Treatment Date of Service: 05/02/25 Diagnosis: Major Depressive Disorder Previous ECT Date: 04/18/25 Treatment: Maintenance Interval Clinical Notes: continues to do well. full range of affect. Time: Total time managing care of this patient today __35__ minutes. ECT Settings Device: THYMATRON DGx Electrode Placement: Bitemporal Program/Pulse Width: 0.50 Energy Percent: 100 Seizure Duration By EEG (in seconds): 27 Medications Administration General Anesthetic: Etomidate (14) Muscle Relaxant: Succinylcholine (80) Ancillary Medications Anti-emetics: Zofran - Pre ECT Airway Management Airway Management: Bag Mask Ventilation Treatment Recommendations No Changes Recommended: No change Notes: RTC in 2 weeks Pt Tolerated Procedure w/o Issue: Yes
== END 2025-05-02 08:55 | disposition home or self-care (01) ==
PROVIDERS: PCP Nurse Practitioner Family; Visit Provider Psychiatry & Neurology Psychiatry
PROC: (CPT 90870; principal; 2025-05-02 08:00)
DX: F33.2 Major depressive disorder, recurrent severe without psychotic features (principal); F60.3 Borderline personality disorder; F43.10 Post-traumatic stress disorder, unspecified; Z91.51 Personal history of suicidal behavior; J44.9 Chronic obstructive pulmonary disease, unspecified; Z79.51 Long term (current) use of inhaled steroids; Z79.899 Other long term (current) drug therapy; Z88.8 Allergy status to other drugs, medicaments and biological substances; F17.210 Nicotine dependence, cigarettes, uncomplicated
CPT/HCPCS: 81025; 90870; J0330; J1642; J2405

== ENCOUNTER → 2025-05-02 05:44 | Outpatient (BNV) | payer OTHER, SELFPAY | PROVIDERS: PCP Nurse Practitioner Family; Visit Provider Psychiatry & Neurology Psychiatry | DX: F33.3 Major depressive disorder, recurrent, severe with psychotic symptoms (principal) | CPT/HCPCS: 90870 ==

== ENCOUNTER 2025-05-11 21:22 | Emergency (ER) | payer OTHER, SELFPAY ==
--- OUTSIDE RECORDS SUMMARY | 2025-03-09 05:40 | XMS_ITS ---
Author Organization [facility] Address [address] [address] Care Team Providers Care Corporate Technical Recruiter Name Role Phone JOSE ANTONIO MENON, COLETTE Primary Care Provider Adele Meier Unavailable [phone] REASON FOR VISIT Annual SPOUT LINER HELPER Physical Encounters Encounter Location Date Provider Diagnosis [facility] [address] [address] 03/09/2025 Adele Fairchild Plan Of Treatment No Information Progress Notes * MELISA THORNTONDOB:1985 (40 yo F)Acc No.[id number]:03/09/2025 Progress Note Patient: MELISA VIEIRA Appointment Provider: Jeffery Fairchild M.D. :1985 A ge:39 Y S ex:Female Date:03/09/2025 Address:[address] [place], [place] [phone] Pcp:COLETTE BRADY NP Subjective: * Chief Complaints: * 1 . Annual SPOUT LINER HELPER Physical. * Medical History: Objective: * Vitals: Assessment: Plan: * Treatment: * Images: Billing Information: * Visit Code: * Procedure Codes: * Electronic signature of Leon Fairchild MD on 05/11/2025 at 09:50 PM EDT Sign off status: Pending * Appointment Provider: Jeffery Fairchild M.D. Date: 0 03/09/2025 Generated for Lj marin/Jessika/Nickolasitting on: 0 05/11/2025 09:50 PM EDT
[2025-05-11 21:37] VITALS: BP 115/78; PULSE 90; O2SAT 96; BMI 41.7
[2025-05-11 21:40] VITALS: BP 108/68; PULSE 97; RESP 18; TEMP 36.7; O2SAT 97
--- NOTE | 2025-05-11 21:45 | PC.NURSE ---
Addendum entered by Claire Morales RN 05/11/25 21:46: Patient is a 40 yo female who presents from a local senior living with multiple complaints, most specifically neck pain for the past 2 weeks. Patient with a significant psych history. Alert and oriented with a flat affect. Lungs clear bilat. Respirations even and non-labored. Abdomen soft, non-tender with positive bowel sounds. Patient morbidly obese. Original Note: Medical History Depression Schizoaffective disorder, depressive type Depression with suicidal ideation MDD (major depressive disorder), recurrent, severe, with psychosis Port-A-Cath in place History of electroconvulsive therapy COVID-19 COVID-19 Sprain of left foot Chronic post-traumatic stress disorder (PTSD) COPD (chronic obstructive pulmonary disease) Increased BMI GERD (gastroesophageal reflux disease) Recurrent major depression-severe Acute post-traumatic stress disorder Injury, self-inflicted Suicidal ideation Self-harming behavior Intentional self-harm Suicidal ideation Borderline personality disorder Schizoaffective disorder Adjustment disorder Asthma Depression Anxiety PTSD (post-traumatic stress disorder)
--- OUTSIDE RECORDS SUMMARY | 2025-05-11 21:50 | XMS_ITS | Clinical Summary ---
Author Organization [facility] Address [address] [place] [address] Phone Care Team Providers Care Microchip Specialist Name Role Phone Marcela Gaviria MD Primary Care Provider [phone] Allergies Active Allergy Reactions Criticality Noted Date [...] topic Medical Devices Not on file Insurance [employer] [facility] [place] [employer] [facility] [place] [employer]ics [facility] [facility] Solar [facility] [place] Member Subscriber Plan / Payer (Ef fective 2020-Present) Name:Stella Capps Relation to Subscriber:Self Name:Stella Capps Payer ID:[id number] Group ID:Not on file Type:Medicaid Address: [place] [address] [place] [address] Gro [facility]PAT[facility] [place] [facility] ieCrowd [facility] [place] [address] [place] [address] [facility] [facility] Care Teams Microchip Specialist Relationship Specialty Start Date End Date Marcela Gaviria MD [address] [place] [id number] PCP - General Internal Medicine 12/20/23 Additional Source Comments The information contained in this document represents components of the legal health record. It is not the complete legal health record.[facility]
--- OUTSIDE RECORDS SUMMARY | 2025-05-11 21:50 | XMS_ITS | Patient Health Record ---
Author Organization [facility] Address [address] [place] [address] Care Team Providers Care Bobbin Inspector Name Role Phone COLETTE BRADY NP Primary Care Provider Adele Meier Unavailable [phone] Reason For Referral No Information Encounters Encounter Location Date Provider Diagnosis [facility] [address] [place] [address] 03/09/2025 Adele Fairchild Plan Of Treatment No Information Insurance Providers Payer Name Payer Address Payer Phone Subscriber Number Group Number Insured Name Patient Relationship to Insured Coverage Start Date Coverage End Date [facility] [address] [place] [id number] [phone] MELISA THORNTON Self - patient is the insured
--- NOTE | 2025-05-11 22:09 | ED.NECK ---
HPI - Neck Pain/Injury General Chief Complaint: Neck Pain/Injury Stated Complaint: neck pain Time Seen by Provider: 05/11/25 21:39 Source: patient Mode of arrival: ambulatory Limitations: no limitations History of Present Illness ED Provider: Dr. Rosi Barcenas HPI Narrative: Patient comes to the emergency room complaining of left-sided neck pain. Patient states that last night when she went to sleep she was fine, when she woke this morning, she noted that she had trouble turning towards the left. Patient complaining of muscle pain throughout the left side of the neck throughout the day. Denies any injuries. Denies any headache. Denies fever chills. Related Data Home Medications ?Medication ?Instructions ?Recorded ?Confirmed benztropine 0.5 mg tablet 0.5 mg PO BID 04/30/24 02/11/25 clonidine HCl 0.1 mg tablet 0.1 mg PO TID 04/30/24 02/11/25 omeprazole 20 mg capsule,delayed 20 mg PO Q OTHER DAY 04/30/24 02/11/25 release prazosin 5 mg capsule 15 mg PO BEDTIME 04/30/24 02/11/25 trazodone 100 mg tablet 200 mg PO BEDTIME insomnia 04/30/24 02/11/25 multivitamin 1 tab PO DAILY 05/17/24 02/11/25 zolpidem 10 mg tablet 10 mg PO BEDTIME insomnia 05/17/24 02/11/25 cholecalciferol (vitamin D3) 25 25 mcg PO DAILY 07/29/24 02/11/25 mcg (1,000 unit) tablet (Vitamin D3) haloperidol 5 mg tablet 5 mg PO TID 08/15/24 02/11/25 haloperidol decanoate 100 mg/mL 75 mg IM Q28D 08/15/24 02/11/25 intramuscular solution prazosin 1 mg capsule 1 mg PO BEDTIME 08/15/24 02/11/25 calcium 600 mg (as 1 tab PO BID 11/02/24 02/11/25 carbonate)-vitamin D3 10 mcg (400 unit) tablet fluticasone propionate 230 2 puff inhalation BID 11/02/24 02/11/25 mcg-salmeterol 21 mcg/actuation HFA inhaler (Advair HFA) cetirizine 10 mg tablet 10 mg PO DAILY 11/06/24 02/11/25 duloxetine 30 mg capsule,delayed 30 mg PO DAILY 11/06/24 02/11/25 release diphenhydramine HCl 50 mg capsule 100 mg PO BEDTIME insomnia 12/03/24 02/11/25 (Banophen) umeclidinium 62.5 mcg/actuation 1 inh inhalation DAILY 12/03/24 02/11/25 blister powder for inhalation (Incruse Ellipta) acetaminophen 500 mg tablet 1,000 mg PO Q6H PRN Pain 02/12/25 02/12/25 bacitracin zinc 500 unit/gram 1 appl topical BID PRN Wound Care 02/12/25 02/12/25 topical ointment fluticasone propionate 50 2 spray intranasal DAILY 02/12/25 02/12/25 mcg/actuation nasal spray,suspension ibuprofen 600 mg tablet 600 mg PO TID PRN Pain 02/12/25 02/12/25 polyethylene glycol 3350 17 17 g PO DAILY PRN Constipation 02/12/25 02/12/25 gram/dose oral powder (Miralax) sennosides 8.6 mg tablet (senna) 17.2 mg PO BEDTIME PRN No Bm in 3 02/12/25 02/12/25 Days/ Previous Rx's ?Medication ?Instructions ?Recorded lorazepam 1 mg tablet 1 mg PO TID PRN anxiety/agitation 05/22/24 #0 tabs albuterol sulfate 90 mcg/actuation 2 puff inhalation Q4-6H PRN 08/30/24 aerosol inhaler shortness of breath or wheezing #6.7 grams duloxetine 60 mg capsule,delayed 60 mg PO DAILY 30 days #30 caps 10/03/24 release hydroxyzine HCl 50 mg tablet 50 mg PO Q6H PRN mild anxiety 30 10/03/24 days #90 tabs lithium carbonate 450 mg 900 mg (2 x 450 mg) PO BEDTIME 30 10/17/24 tablet,extended release days #60 tabs baclofen 10 mg tablet 10 mg PO BID PRN muscle spasm #14 05/11/25 tabs Allergies Allergy/AdvReac Type Severity Reaction Status Date / Time carbamazepine (From TEGRETOL) AdvReac Mild Nausea and Verified 05/11/25 21:39 Vomiting topiramate (From Topamax) AdvReac Mild Nausea and Verified 05/11/25 21:39 Vomiting Review of Systems Review of Systems: Constitutional : No Weight loss, No Fever, No Chills, No Night Sweats, No Fatigue, No Malaise ENT/Mouth : No Hearing loss, No Ear Pain, No Nasal Congestion, No Sinus Pain, No Hoarseness, No sore throat, No Rhinorrhea, No Swallowing Difficulty Eyes: No Eye Pain, No Swelling, No Redness, No Foreign Body, No Discharge, No Vision Changes Cardiovascular : No Chest Pain, No SOB, No Dyspnea on Exertion, No Orthopnea, No Edema, No Palpitations Respiratory : No Cough, No Sputum, No Wheezing, No Smoke Exposure, No Dyspnea Gastrointestinal : No Nausea, No Vomiting, No Diarrhea, No Constipation, No abdominal Pain, No Hematochezia, No Melena Genitourinary : no irregular bleeding, No Dysuria, No Urinary Frequency, No Hematuria, No Urinary Incontinence, No Urgency, No Flank Pain, No Urinary Flow Changes, No Hesitancy Musculoskeletal : Complaining of left-sided neck pain, No joint pain, No Myalgias, No Joint Swelling Skin : No Skin Lesions, No rash Neuro : No Weakness, No Numbness, No Paresthesias, No Loss of Consciousness, No Dizziness, No Headache Psych : No Anxiety/Panic, No Depression, No SI/HI/AH/VH, No Social Issues, Heme/Lymph: No Bruising, No Bleeding,No Lymphadenopathy Endocrine : No Polyuria, No Polydipsia, No Temperature Intolerance PMFSH Past Medical History Medical History Depression Schizoaffective disorder, depressive type Depression with suicidal ideation MDD (major depressive disorder), recurrent, severe, with psychosis Port-A-Cath in place History of electroconvulsive therapy COVID-19 COVID-19 Sprain of left foot Chronic post-traumatic stress disorder (PTSD) COPD (chronic obstructive pulmonary disease) Increased BMI GERD (gastroesophageal reflux disease) Recurrent major depression-severe Acute post-traumatic stress disorder Injury, self-inflicted Suicidal ideation Self-harming behavior Intentional self-harm Suicidal ideation Borderline personality disorder Schizoaffective disorder Adjustment disorder Asthma Depression Anxiety PTSD (post-traumatic stress disorder) Family History Family History Mother Brain cancer Other No family history of cardiac disease Social History Social History Household Members: Other Household Members Other:: [employer] Housing: Other Housing Other:: [employer] Do you presently have visiting nurse or other home services: No Alcohol intake: current Alcohol intake frequency: does not drink Patient Tobacco Use Status: Current everyday Tobacco user Tobacco use type: Cigarette Cigarette Packs Per Day: 0.5 Cigarettes Per Day: 10.0 Years Smoked: 20 Smoked in Last 30 Days: Yes e-Cigarette/Vaping Use: Never Used Second Hand Smoke Exposure: No Use of substances other than those prescribed or required for medical reasons: No Substance Use Type: Marijuana Advance Directives: No Advance Directives Information Provided: No service: No Current occupation: rt handed Sexual orientation: Straight/Heterosexual Physical Exam Exam: Exam: Appearance: Alert. Oriented X3. No acute distress. Eyes: Pupils equal, round and reactive to light. ENT: Pharynx normal. Neck: Normal inspection. Neck supple. No lymph nodes noted. No crepitus. Patient has mild pain to palpation over the sternocleidomastoid muscles CVS: Normal heart rate and rhythm. Pulses normal. Normal S1 and S2 Respiratory: No respiratory distress. Breath sounds normal. No Wheezing. No rales Abdomen: Soft and nontender. No rigidity. No distention. Skin: Skin warm and dry. Normal skin color. Normal skin turgor. Extremities: No lower extremity edema. No Lacerations. No Rash Neuro: Oriented X 3. No motor deficit. No sensory deficit. Moving all extremities. No slurred speech. CN 2 through 12 grossly intact Psych: calm, cooperative, normal affect Vital Signs: Vital Signs: Last Vital Signs Temp 98.1 F 05/11/25 21:40 Pulse 97 05/11/25 21:40 Resp 18 05/11/25 21:40 BP 108/68 05/11/25 21:40 Pulse Ox 97 05/11/25 21:40 O2 Del Method Room Air 05/11/25 21:40 BMI result Body Mass Index 41.7 Course Course Course Narrative: Patient complaining of left-sided neck pain that started after waking up. Pain is worse when patient turns than neck to left. Denies any injury. Medical Decision Making Medical Decision Making MDM Narrative: I discussed the physical exam with the patient. Patient likely has torticollis. Patient was given a dose of p.o. baclofen. Patient is well-known to the ED. Today, patient denies any SI or HI. Patient states that she was recently transferred to a different jail, and since then, she has been doing very well Patient has normal flexion and extension of the neck, no headache, meningitis is not suspected Differential Diagnosis Differential Diagnoses: The differential diagnosis associated with the presentation includes (Torticollis, muscle spasms, musculoskeletal pain) Discharge Plan Discharge Clinical Impression: Acute torticollis Patient Disposition: Home, Self-Care Instructions: Neck Pain (ED) Additional Instructions: Please follow-up with your primary care physician tomorrow. If you have any worsening or new symptoms, please return to the emergency room or call 911 Prescriptions: New baclofen 10 mg tablet 10 mg PO BID PRN (Reason: muscle spasm) Qty: 14 0RF No Action clonidine HCl 0.1 mg tablet 0.1 mg PO TID Rx Instructions: takes at 0800, 1400 and 2000 benztropine 0.5 mg tablet 0.5 mg PO BID prazosin 5 mg capsule 15 mg PO BEDTIME trazodone 100 mg tablet 200 mg PO BEDTIME omeprazole 20 mg capsule,delayed release(DR/EC) 20 mg PO Q OTHER DAY cholecalciferol (vitamin D3) [Vitamin D3] 25 mcg (1,000 unit) tablet 25 mcg PO DAILY haloperidol 5 mg tablet 5 mg PO TID prazosin 1 mg capsule 1 mg PO BEDTIME haloperidol decanoate 100 mg/mL solution 75 mg IM Q28D albuterol sulfate 90 mcg/actuation HFA aerosol inhaler 2 puff inhalation Q4-6H PRN (Reason: shortness of breath or wheezing) Qty: 6.7 0RF hydroxyzine HCl 50 mg Tablet 50 mg PO Q6H PRN (Reason: mild anxiety) 30 Days Qty: 90 0RF duloxetine 60 mg capsule,delayed release(DR/EC) 60 mg PO DAILY 30 Days Qty: 30 0RF Rx Instructions: take with 30mg capsule diphenhydramine HCl [Banophen] 50 mg capsule 100 mg PO BEDTIME Incruse Ellipta 62.5 mcg/actuation blister with device 1 inh INHALATION DAILY sennosides [senna] 8.6 mg Tablet 17.2 mg PO BEDTIME PRN (Reason: No Bm in 3 Days/) acetaminophen 500 mg Tablet 1,000 mg PO Q6H PRN (Reason: Pain) ibuprofen 600 mg Tablet 600 mg PO TID PRN (Reason: Pain) polyethylene glycol 3350 [Miralax] 17 gram/dose Powder 17 g PO DAILY PRN (Reason: Constipation) fluticasone propionate 50 mcg/actuation spray,suspension 2 spray intranasal DAILY bacitracin zinc 500 unit/gram Ointment 1 appl TOPICAL BID PRN (Reason: Wound Care) zolpidem 10 mg tablet 10 mg PO BEDTIME multivitamin Tablet 1 tab PO DAILY lorazepam 1 mg Tablet 1 mg PO TID PRN (Reason: anxiety/agitation) Qty: 0 0RF lithium carbonate 450 mg Tablet Extended Release 900 mg PO BEDTIME 30 Days Qty: 60 0RF fluticasone propion-salmeterol [Advair HFA] 230-21 mcg/actuation HFA aerosol inhaler 2 puff INHALATION BID calcium carbonate-vitamin D3 600 mg-10 mcg (400 unit) tablet 1 tab PO BID cetirizine 10 mg tablet 10 mg PO DAILY duloxetine 30 mg capsule,delayed release(DR/EC) 30 mg PO DAILY Print Language: Palauan
[2025-05-11 23:24] VITALS: BP 00/00; PULSE 0; RESP 18; TEMP -17.7; TEMP 0
== END 2025-05-11 23:26 | disposition home or self-care (01) ==
PROVIDERS: Emergency Provider Emergency Medicine; PCP Nurse Practitioner Family
DX: M43.6 Torticollis (principal); J44.9 Chronic obstructive pulmonary disease, unspecified; Z79.899 Other long term (current) drug therapy
CPT/HCPCS: 99283; 99284

== ENCOUNTER 2025-05-16 05:44 | Day surgery (SDC) | payer OTHER, SELFPAY ==
--- OUTSIDE RECORDS SUMMARY | 2025-03-09 05:40 | XMS_ITS ---
Author Organization [employer] [facility] Address [address] [address] Care Team Providers Care Supervisory Forester Name Role Phone JOSE ANTONIO MENON, COLETTE Primary Care Provider Adele Meier Unavailable [phone] REASON FOR VISIT Annual RETAIL PRESENTATION SPECIALIST Physical Encounters Encounter Location Date Provider Diagnosis [facility] [facility] [address] [address] 03/09/2025 Adele Fairchild Plan Of Treatment No Information Progress Notes * MELISA THORNTONDOB:1985 (40 yo F)Acc No.[id number]:03/09/2025 Progress Note Patient: MELISA VIEIRA Appointment Provider: Jeffery Fairchild M.D. :1985 A ge:39 Y S ex:Female Date:03/09/2025 Address:[address] [place], [place] [phone] Pcp:COLETTE BRADY NP Subjective: * Chief Complaints: * 1 . Annual RETAIL PRESENTATION SPECIALIST Physical. * Medical History: Objective: * Vitals: Assessment: Plan: * Treatment: * Images: Billing Information: * Visit Code: * Procedure Codes: * Electronic signature of Leon Fairchild MD on 05/02/2025 at 09:32 AM EDT Sign off status: Pending * Appointment Provider: Jeffery Fairchild M.D. Date: 0 03/09/2025 Generated for Lj marin/Jessika/Nickolasitting on: 05/02/2025 09:32 AM EDT
--- OUTSIDE RECORDS SUMMARY | 2025-05-02 09:32 | XMS_ITS | Clinical Summary ---
Author Organization [facility] Address [address] [place] [address] Phone Care Team Providers Care Analytical Strategist Name Role Phone Marcela Gaviria MD Primary Care Provider [phone] Allergies Active Allergy Reactions Criticality Noted Date [...] topic Medical Devices Not on file Insurance [employer] [facility] [place] [employer] [facility] [place] [employer] [facility] [place] [facility] [place] Member Subscriber Plan / Payer (Ef fective 2020-Present) Name:Stella Capps Relation to Subscriber:Self Name:Stella Capps Payer ID:[id number] Group ID:Not on file Type:Medicaid Address: [place] [address] [place] [address] [employer] [facility] [place] [facility] [employer] [facility] [place] [address] [address] [facility] [facility] Care Teams Analytical Strategist Relationship Specialty Start Date End Date Marcela Gaviria MD [address] [place] [phone] PCP - General Internal Medicine 12/20/23 Additional Source Comments The information contained in this document represents components of the legal health record. It is not the complete legal health record.[facility]
--- OUTSIDE RECORDS SUMMARY | 2025-05-02 09:33 | XMS_ITS | Patient Health Record ---
Author Organization [employer] [facility] Address [address] [facility] [address] [place] [address] Care Team Providers Care Utility Bill Collection Clerk Name Role Phone COLETTE BRADY NP Primary Care Provider Adele Meier Unavailable [phone] Reason For Referral No Information Encounters Encounter Location Date Provider Diagnosis [facility] [employer] [facility] [address] [facility] [address] [place] [address] 03/09/2025 Adele Fairchild Plan Of Treatment No Information Insurance Providers Payer Name Payer Address Payer Phone Subscriber Number Group Number Insured Name Patient Relationship to Insured Coverage Start Date Coverage End Date [facility] [address] [place] [id number] MELISA THORNTON Self - patient is the insured
[2025-05-16] VITALS (7 sets, daily range): BP systolic 125–168; BP diastolic 77–119; PULSE 79–92; RESP 20; TEMP 36.7–37.1; O2SAT 97–98; BMI 40.2
[2025-05-16 06:33] LABS: UPreg QC Valid YES
--- NOTE | 2025-05-16 06:42 | HO.ANESPROP2 ---
[facility] Active Problems Active Problems: All Active Problems Chronic post-traumatic stress disorder (PTSD) (Acute) MDD (major depressive disorder), recurrent, severe, with psychosis (Acute) Osteoarthritis of right knee (Acute) Chronic post-traumatic stress disorder (PTSD) (Chronic) Borderline personality disorder (Chronic) Auditory hallucinations (Acute) Port-A-Cath in place (Acute) Intentional self-harm (Acute) COPD (chronic obstructive pulmonary disease) (Acute) Asthma (Acute) Adjustment disorder (Acute) Injury of ligament of right knee (Acute) Sprain of anterior cruciate ligament of right knee (Acute) Hernia (Chronic) Increased BMI (Acute) GERD (gastroesophageal reflux disease) (Acute) Past Medical History Medical History Depression Schizoaffective disorder, depressive type Depression with suicidal ideation MDD (major depressive disorder), recurrent, severe, with psychosis Port-A-Cath in place History of electroconvulsive therapy COVID-19 COVID-19 Sprain of left foot Chronic post-traumatic stress disorder (PTSD) COPD (chronic obstructive pulmonary disease) Increased BMI GERD (gastroesophageal reflux disease) Recurrent major depression-severe Acute post-traumatic stress disorder Injury, self-inflicted Suicidal ideation Self-harming behavior Intentional self-harm Suicidal ideation Borderline personality disorder Schizoaffective disorder Adjustment disorder Asthma Depression Anxiety PTSD (post-traumatic stress disorder) Family History Family History Mother Brain cancer Other No family history of cardiac disease Family history of problems with anesthesia: No Surgical History History of Problems with Anesthesia: No Social History Social History Household Members: Other Household Members Other:: [employer] Housing: Other Housing Other:: SK[employer]ED NURSING Do you presently have visiting nurse or other home services: No Unable to assess alcohol history related to: Unable to respond Alcohol intake: current Alcohol intake frequency: does not drink Patient Tobacco Use Status: Current everyday Tobacco user Tobacco use type: Cigarette Cigarette Packs Per Day: 0.5 Cigarettes Per Day: 10.0 Years Smoked: 20 e-Cigarette/Vaping Use: Never Used Second Hand Smoke Exposure: No Substance Use Type: Marijuana Advance Directives: No Advance Directives Information Provided: Yes service: No Current occupation: rt handed Sexual orientation: Straight/Heterosexual Meds Allergies Allergy/AdvReac Type Severity Reaction Status Date / Time carbamazepine (From TEGRETOL) AdvReac Mild Nausea and Verified 05/11/25 21:39 Vomiting topiramate (From Topamax) AdvReac Mild Nausea and Verified 05/11/25 21:39 Vomiting Home Medications ?Medication ?Instructions ?Recorded ?Confirmed ?Last Taken ?Type benztropine 0.5 mg tablet 0.5 mg PO BID 04/30/24 02/11/25 12/06/24 20:00 History clonidine HCl 0.1 mg tablet 0.1 mg PO TID 04/30/24 02/11/25 12/06/24 20:00 History omeprazole 20 mg capsule,delayed 20 mg PO Q OTHER DAY 04/30/24 02/11/25 10/05/24 History release prazosin 5 mg capsule 15 mg PO BEDTIME 04/30/24 02/11/25 12/06/24 20:00 History trazodone 100 mg tablet 200 mg PO BEDTIME insomnia 04/30/24 02/11/25 10/05/24 History multivitamin 1 tab PO DAILY 05/17/24 02/11/25 12/06/24 08:00 History zolpidem 10 mg tablet 10 mg PO BEDTIME insomnia 05/17/24 02/11/25 12/06/24 20:00 History cholecalciferol (vitamin D3) 25 25 mcg PO DAILY 07/29/24 02/11/25 12/06/24 08:00 History mcg (1,000 unit) tablet (Vitamin D3) haloperidol 5 mg tablet 5 mg PO TID 08/15/24 02/11/25 12/06/24 20:00 History haloperidol decanoate 100 mg/mL 75 mg IM Q28D 08/15/24 02/11/25 10/05/24 History intramuscular solution prazosin 1 mg capsule 1 mg PO BEDTIME 08/15/24 02/11/25 12/06/24 20:00 History calcium 600 mg (as 1 tab PO BID 11/02/24 02/11/25 12/06/24 20:00 History carbonate)-vitamin D3 10 mcg (400 unit) tablet fluticasone propionate 230 2 puff inhalation BID 11/02/24 02/11/25 12/06/24 20:00 History mcg-salmeterol 21 mcg/actuation HFA inhaler (Advair HFA) cetirizine 10 mg tablet 10 mg PO DAILY 11/06/24 02/11/25 12/06/24 08:00 History duloxetine 30 mg capsule,delayed 30 mg PO DAILY 11/06/24 02/11/25 12/06/24 09:00 History release diphenhydramine HCl 50 mg capsule 100 mg PO BEDTIME insomnia 12/03/24 02/11/25 12/06/24 20:00 History (Banophen) umeclidinium 62.5 mcg/actuation 1 inh inhalation DAILY 12/03/24 02/11/25 12/06/24 08:00 History blister powder for inhalation (Incruse Ellipta) acetaminophen 500 mg tablet 1,000 mg PO Q6H PRN Pain 02/12/25 02/12/25 Unknown History bacitracin zinc 500 unit/gram 1 appl topical BID PRN Wound Care 02/12/25 02/12/25 Unknown History topical ointment fluticasone propionate 50 2 spray intranasal DAILY 02/12/25 02/12/25 Unknown History mcg/actuation nasal spray,suspension ibuprofen 600 mg tablet 600 mg PO TID PRN Pain 02/12/25 02/12/25 Unknown History polyethylene glycol 3350 17 17 g PO DAILY PRN Constipation 02/12/25 02/12/25 Unknown History gram/dose oral powder (Miralax) sennosides 8.6 mg tablet (senna) 17.2 mg PO BEDTIME PRN No Bm in 3 02/12/25 02/12/25 Unknown History Days/ Exam Pertinent Lab Results Pertinent Lab Results: Laboratory Tests 05/16/25 06:20 Urine Test NEGATIVE Airway Mallampati Class: II (missing multiple teeth) TM Dist: >3cm Neck ROM: Full Heart: rrr Lungs: cta Assessment and Plan Assessment Anesthesia Assessment: Anesthesia Plan Discussed and Chart Reviewed Final Anesthetic Review Family History of Problems with Anesthesia: No History of Problems with Anesthesia: No NPO: Yes ASA Class: III Final Preanesthetic Review: No Changes in Pt Med Stat, Meds/Allgs Chart Reviewed and Consent Obtained/Reviewed Patient Risk: Intermediate Procedure Risk: Intermediate Anesthetic Plan Anesthetic Plan: GA Disposition: Standard PACU
--- NOTE | 2025-05-16 07:09 | MHC.SHP ---
Pre-Procedural Eval Section A - 24 Hr Update-Section A only Date of Service: 05/16/25 Section B - Complete if H&P > 30 days Chief Complaint: depression Details of Present Illness: pt states doing well no concerns no new medical problems Allergies: Allergies Allergy/AdvReac Type Severity Reaction Status Date / Time carbamazepine (From TEGRETOL) AdvReac Mild Nausea and Verified 05/11/25 21:39 Vomiting topiramate (From Topamax) AdvReac Mild Nausea and Verified 05/11/25 21:39 Vomiting Review of Systems Sugical H&P ROS: Negative: Constitution, Neurological and Psychiatric Exam Surgical H&P Exam: Normal: HEENT, Normal: Extremities and Normal: Neurological Plan Diagnosis/Plan: Unchanged I have reviewed the history and physical and performed a pertinent physical examination on my patient. No changes have occurred unless specified. Time Spent With Patient Time: Total time managing care of this patient today ____ minutes.
--- NOTE | 2025-05-16 07:11 | P.PCN_ITS ---
ECT Procedure Note Diagnosis/Treatment Date of Service: 05/16/25 Diagnosis: Major Depressive Disorder and Other (ptsd) Previous ECT Date: 04/18/25 Treatment: Maintenance Interval Clinical Notes: Patient cognitively intact no reported adverse effects from ECT. Patient alert future oriented stated that she has moved to a new skilled nursing in [place] states she feels more supported there. States she has not had recent hospitalization feeling more stable. Is now being seen at [facility] Time: Total time managing care of this patient today ____ minutes. ECT Settings Device: THYMATRON DGx Electrode Placement: Bitemporal Program/Pulse Width: 0.50 Energy Percent: 100 Seizure Duration By EEG (in seconds): 27 By Motor Observation (in seconds): 28 Medications Administration General Anesthetic: Etomidate (14) Muscle Relaxant: Succinylcholine (80) Ancillary Medications Anti-emetics: Zofran - Pre ECT Airway Management Airway Management: Bag Mask Ventilation Treatment Recommendations No Changes Recommended: No change Notes: RTC in 3 weeks will need to be coordinated with skilled nursing setting will try and increase back to every 4 weeks and coordinate with service [facility] a no crystal Pt Tolerated Procedure w/o Issue: Yes
== END 2025-05-16 08:38 | disposition home or self-care (01) ==
PROVIDERS: PCP Nurse Practitioner Family; Visit Provider Psychiatry & Neurology Psychiatry
PROC: (CPT 90870; principal; 2025-05-16 07:00)
DX: F32.A Depression, unspecified (principal); F43.10 Post-traumatic stress disorder, unspecified
CPT/HCPCS: 81025; 90870; J0330; J1642; J2405

== ENCOUNTER → 2025-05-16 05:44 | Outpatient (BNV) | payer OTHER, SELFPAY | PROVIDERS: PCP Nurse Practitioner Family; Visit Provider Psychiatry & Neurology Psychiatry | DX: F33.2 Major depressive disorder, recurrent severe without psychotic features (principal) | CPT/HCPCS: 90870 ==

== ENCOUNTER 2025-05-24 20:25 | Emergency (ER) | payer OTHER, SELFPAY ==
[2025-05-24 20:37] VITALS: BP 138/80; BP 140/90; PULSE 100; PULSE 109; RESP 16; TEMP 36.1; O2SAT 97; O2SAT 99; BMI 43.0
[2025-05-24 20:42] VITALS: RESP 16
--- NOTE | 2025-05-24 21:03 | ED.PSYCH ---
HPI - Psych General Chief Complaint: Psychiatric Symptoms Stated Complaint: SI/HI hx:of attempts, depression, schizoaffective Time Seen by Provider: 05/24/25 20:49 Source: patient, EMS and old records reviewed Mode of arrival: EMS Limitations: no limitations History of Present Illness ED Provider: GABRIEL HPI Narrative: 40 yo female with PMH of depression, PTSD, borderline personality disorder, COPD, GERD, asthma, here with c/o of doing well recently but then felt like she was having flashbacks and had brief SI. She has no plan and states she is fine now and is safe [facility]. She reports it passed and she would like to go home and rest. complaint: suicidal ideation Onset (ago): minute(s) ([employer]) Duration: resolved prior to arrival History of same: Yes Relieving factors: none Exacerbating factors: other Context: other Associated psychiatric symptoms: none Associated symptoms: denies other symptoms Treatments prior to arrival: none Related Data Home Medications ?Medication ?Instructions ?Recorded ?Confirmed benztropine 0.5 mg tablet 0.5 mg PO BID 04/30/24 02/11/25 clonidine HCl 0.1 mg tablet 0.1 mg PO TID 04/30/24 02/11/25 omeprazole 20 mg capsule,delayed 20 mg PO Q OTHER DAY 04/30/24 02/11/25 release prazosin 5 mg capsule 15 mg PO BEDTIME 04/30/24 02/11/25 trazodone 100 mg tablet 200 mg PO BEDTIME insomnia 04/30/24 02/11/25 multivitamin 1 tab PO DAILY 05/17/24 02/11/25 zolpidem 10 mg tablet 10 mg PO BEDTIME insomnia 05/17/24 02/11/25 cholecalciferol (vitamin D3) 25 25 mcg PO DAILY 07/29/24 02/11/25 mcg (1,000 unit) tablet (Vitamin D3) haloperidol 5 mg tablet 5 mg PO TID 08/15/24 02/11/25 haloperidol decanoate 100 mg/mL 75 mg IM Q28D 08/15/24 02/11/25 intramuscular solution prazosin 1 mg capsule 1 mg PO BEDTIME 08/15/24 02/11/25 calcium 600 mg (as 1 tab PO BID 11/02/24 02/11/25 carbonate)-vitamin D3 10 mcg (400 unit) tablet fluticasone propionate 230 2 puff inhalation BID 11/02/24 02/11/25 mcg-salmeterol 21 mcg/actuation HFA inhaler (Advair HFA) cetirizine 10 mg tablet 10 mg PO DAILY 11/06/24 02/11/25 duloxetine 30 mg capsule,delayed 30 mg PO DAILY 11/06/24 02/11/25 release diphenhydramine HCl 50 mg capsule 100 mg PO BEDTIME insomnia 12/03/24 02/11/25 (Banophen) umeclidinium 62.5 mcg/actuation 1 inh inhalation DAILY 12/03/24 02/11/25 blister powder for inhalation (Incruse Ellipta) acetaminophen 500 mg tablet 1,000 mg PO Q6H PRN Pain 02/12/25 02/12/25 bacitracin zinc 500 unit/gram 1 appl topical BID PRN Wound Care 02/12/25 02/12/25 topical ointment fluticasone propionate 50 2 spray intranasal DAILY 02/12/25 02/12/25 mcg/actuation nasal spray,suspension ibuprofen 600 mg tablet 600 mg PO TID PRN Pain 02/12/25 02/12/25 polyethylene glycol 3350 17 17 g PO DAILY PRN Constipation 02/12/25 02/12/25 gram/dose oral powder (Miralax) sennosides 8.6 mg tablet (senna) 17.2 mg PO BEDTIME PRN No Bm in 3 02/12/25 02/12/25 Days/ Previous Rx's ?Medication ?Instructions ?Recorded lorazepam 1 mg tablet 1 mg PO TID PRN anxiety/agitation 05/22/24 #0 tabs albuterol sulfate 90 mcg/actuation 2 puff inhalation Q4-6H PRN 08/30/24 aerosol inhaler shortness of breath or wheezing #6.7 grams duloxetine 60 mg capsule,delayed 60 mg PO DAILY 30 days #30 caps 10/03/24 release hydroxyzine HCl 50 mg tablet 50 mg PO Q6H PRN mild anxiety 30 10/03/24 days #90 tabs lithium carbonate 450 mg 900 mg (2 x 450 mg) PO BEDTIME 30 10/17/24 tablet,extended release days #60 tabs baclofen 10 mg tablet 10 mg PO BID PRN muscle spasm #14 05/11/25 tabs Allergies Allergy/AdvReac Type Severity Reaction Status Date / Time carbamazepine (From TEGRETOL) AdvReac Mild Nausea and Verified 05/24/25 20:39 Vomiting topiramate (From Topamax) AdvReac Mild Nausea and Verified 05/24/25 20:39 Vomiting Review of Systems Review of Systems: Yes all other systems are reviewed and are negative PMFSH Past Medical History Attestation statement: The following information was validated with the patient. Source: old records reviewed Medical History Depression Schizoaffective disorder, depressive type Depression with suicidal ideation MDD (major depressive disorder), recurrent, severe, with psychosis Port-A-Cath in place History of electroconvulsive therapy COVID-19 COVID-19 Sprain of left foot Chronic post-traumatic stress disorder (PTSD) COPD (chronic obstructive pulmonary disease) Increased BMI GERD (gastroesophageal reflux disease) Recurrent major depression-severe Acute post-traumatic stress disorder Injury, self-inflicted Suicidal ideation Self-harming behavior Intentional self-harm Suicidal ideation Borderline personality disorder Schizoaffective disorder Adjustment disorder Asthma Depression Anxiety PTSD (post-traumatic stress disorder) Family History Family History Mother Brain cancer Other No family history of cardiac disease Social History Social History Household Members: Other Household Members Other:: [employer] Housing: Other Housing Other:: [employer] Do you presently have visiting nurse or other home services: No Alcohol intake: current Alcohol intake frequency: does not drink Patient Tobacco Use Status: Current everyday Tobacco user Tobacco use type: Cigarette Cigarette Packs Per Day: 0.5 Cigarettes Per Day: 10.0 Years Smoked: 20 Smoked in Last 30 Days: Yes e-Cigarette/Vaping Use: Never Used Second Hand Smoke Exposure: No Use of substances other than those prescribed or required for medical reasons: Yes Substance Use Type: Marijuana Patient : No service: No Current occupation: rt handed Sexual orientation: Straight/Heterosexual Physical Exam Vital Signs: Vital Signs: Last Vital Signs Temp 97.0 F 05/24/25 20:37 Pulse 109 H 05/24/25 20:37 Resp 16 05/24/25 20:42 BP 138/80 05/24/25 20:37 Pulse Ox 99 05/24/25 20:37 O2 Del Method Room Air 05/24/25 20:37 BMI result Body Mass Index 43.0 Appearance: Alert. Oriented X3. No acute distress. Eyes: Pupils equal, round and reactive to light. ENT: Pharynx normal. Neck: Normal inspection. CVS: Pulses normal. Respiratory: No respiratory distress. Abdomen: Soft and nontender. Skin: Skin warm and dry. Normal skin color. Extremities: No lower extremity edema. Neuro: Oriented X 3. No motor deficit. No sensory deficit. Medical Decision Making Medical Decision Making [facility] Narrative: 40 yo female with PMH of depression, PTSD, borderline personality disorder, COPD, GERD, asthma, here with c/o resolved SI no plan states it was a flashback has good resources and wants to go home at this time she is calm and cooperative will ask CARE team to consult though I have low susp for acute SI attempt. She [facility] a stable [facility] to [facility] to. Differential Diagnosis Differential Diagnoses: The differential diagnosis associated with the presentation includes chronic PTSD Admission/Observation Consideration of admission/observation: Escalation of care including admission/observation considered cleared by CARE team, safe place to go and DC planning Lab Data [facility] Lab Attestation statement: I reviewed the patient's lab results. 05/24/25 21:16 05/24/25 21:16 Labs: Lab Results 05/24/25 Range/Units 21:16 WBC 8.6 (4.8-10.8) X10*3/uL RBC 4.35 (4.20-5.50) X10*6/uL Hgb 12.7 (12.0-16.0) g/dl Hct 38.6 (37.0-47.0) % MCV 88.7 (80.0-98.0) fL MCH 29.2 (27.0-33.0) pg MCHC 32.9 (31.0-35.0) g/dl RDW 13.2 (11.0-16.0) % Plt Count 269 (160-400) X10*3/uL MPV 10.6 (9.4-12.3) fL Immature Gran % (Auto) 0.2 (0.0-0.4) % Neut % (Auto) 70.5 (45-73) % Lymph % (Auto) 21.6 (20-40) % [place] % (Auto) 5.9 (2-11) % Eos % (Auto) 1.2 (0-4) % Baso % (Auto) 0.6 (0-2) % Lymph # (Auto) 1.9 (1.2-4.9) X10*3/uL [place] # (Auto) 0.5 (0.1-1.2) X10*3/uL Eos # (Auto) 0.1 (0.0-0.4) X10*3/uL Baso # (Auto) 0.1 (0.0-0.2) X10*3/uL Abs Immat Gran (auto) 0.02 (0.00-0.03) X10*3/uL Absolute Neuts (auto) 6.1 (2.0-8.3) x10*3/uL Absolute Nucleated RBC 0.000 (0.0-0.012) X10*3/uL Nucleated RBC % (auto) 0.0 (0.0-0.2) /100WBC Urine Color Yellow Urine Appearance Clear Urine pH 6.0 (5.0-9.0) Ur Specific [place] 1.010 (1.005-1.025) Urine Protein Negative (Neg-Trace) mg/dL Urine Glucose (UA) Negative (Negative) mg/dL Urine Ketones Negative (Negative) mg/dL Urine Blood Negative (Negative) Urine Nitrite Negative (Negative) Ur Leukocyte Esterase Trace H (Negative) Urine RBC 0-2 (0-2) /HPF Urine WBC 0-5 (0-5) /HPF Ur Squamous Epith Cells 6-10 (0-2) /HPF Urine Bacteria 1+ (None Seen) Hyaline Casts 0-2 (0-2) /LPF Urine Test NEGATIVE (NEGATIVE) Urine Opiates Screen Not Detected (Not Detect) Ur Buprenorphine Scrn Not Detected (Not Detect) ng/mL Ur Oxycodone Screen Not Detected (Not Detect) ng/mL Urine Methadone Screen Not Detected (Not Detect) ng/mL Urine Fentanyl Screen Not Detected (Not Detect) Ur Barbiturates Screen Not Detected (Not Detect) Ur Phencyclidine Scrn Not Detected (Not Detect) Ur Amphetamines Screen Not Detected (Not Detect) U Benzodiazepines Scrn Not Detected (Not Detect) Urine Cocaine Screen Not Detected (Not Detect) U Marijuana (THC) Screen Not Detected (Not Detect) Independent Historian Clinical information obtained from an independent historian. History obtained from or confirmed by: EMS External Record Review External record reviewed: Inpatient record and Outpatient record Discharge Plan Discharge Clinical Impression: Chronic post-traumatic stress disorder (PTSD) Patient Disposition: Home, Self-Care Instructions: PTSD (Post Traumatic Stress Disorder) (ED) Additional Instructions: You were seen in our Emergency Department today for treatment of a behavioral health issue. It is important after your visit that you follow up with either your behavioral health provider or a primary care doctor within 7 days.? If you have trouble finding a therapist you can reach out to [address] [phone] [facility] can be reached 7 days a week 24 hours a day.? Call [phone] to speak with someone.? Return for any worsening symptoms or concerns such as thoughts of self harm or harm to others. Please call [phone] if you feel your mental health is worsening.? Prescriptions: No Action clonidine HCl 0.1 mg tablet 0.1 mg PO TID Rx Instructions: takes at 0800, 1400 and 2000 benztropine 0.5 mg tablet 0.5 mg PO BID prazosin 5 mg capsule 15 mg PO BEDTIME trazodone 100 mg tablet 200 mg PO BEDTIME omeprazole 20 mg capsule,delayed release(DR/EC) 20 mg PO Q OTHER DAY cholecalciferol (vitamin D3) [Vitamin D3] 25 mcg (1,000 unit) tablet 25 mcg PO DAILY haloperidol 5 mg tablet 5 mg PO TID prazosin 1 mg capsule 1 mg PO BEDTIME haloperidol decanoate 100 mg/mL solution 75 mg IM Q28D albuterol sulfate 90 mcg/actuation HFA aerosol inhaler 2 puff inhalation Q4-6H PRN (Reason: shortness of breath or wheezing) Qty: 6.7 0RF hydroxyzine HCl 50 mg Tablet 50 mg PO Q6H PRN (Reason: mild anxiety) 30 Days Qty: 90 0RF duloxetine 60 mg capsule,delayed release(DR/EC) 60 mg PO DAILY 30 Days Qty: 30 0RF Rx Instructions: take with 30mg capsule diphenhydramine HCl [Banophen] 50 mg capsule 100 mg PO BEDTIME Incruse Ellipta 62.5 mcg/actuation blister with device 1 inh INHALATION DAILY sennosides [senna] 8.6 mg Tablet 17.2 mg PO BEDTIME PRN (Reason: No Bm in 3 Days/) acetaminophen 500 mg Tablet 1,000 mg PO Q6H PRN (Reason: Pain) ibuprofen 600 mg Tablet 600 mg PO TID PRN (Reason: Pain) polyethylene glycol 3350 [Miralax] 17 gram/dose Powder 17 g PO DAILY PRN (Reason: Constipation) fluticasone propionate 50 mcg/actuation spray,suspension 2 spray intranasal DAILY bacitracin zinc 500 unit/gram Ointment 1 appl TOPICAL BID PRN (Reason: Wound Care) zolpidem 10 mg tablet 10 mg PO BEDTIME multivitamin Tablet 1 tab PO DAILY lorazepam 1 mg Tablet 1 mg PO TID PRN (Reason: anxiety/agitation) Qty: 0 0RF lithium carbonate 450 mg Tablet Extended Release 900 mg PO BEDTIME 30 Days Qty: 60 0RF fluticasone propion-salmeterol [Advair HFA] 230-21 mcg/actuation HFA aerosol inhaler 2 puff INHALATION BID calcium carbonate-vitamin D3 600 mg-10 mcg (400 unit) tablet 1 tab PO BID cetirizine 10 mg tablet 10 mg PO DAILY duloxetine 30 mg capsule,delayed release(DR/EC) 30 mg PO DAILY baclofen 10 mg tablet 10 mg PO BID PRN (Reason: muscle spasm) Qty: 14 0RF Interventions: Ford-Suicide Risk Severity Scale Last Done: 05/24/25 20:42 Print Language: Azeri
[2025-05-24 21:24] LABS: MANUAL DIFF FLAG NO
[2025-05-24 21:25] LABS: Hematocrit 38.6 % (37.0-47.0); Hemoglobin 12.7 g/dl (12.0-16.0); Imm Gran Abs Auto 0.02 X10*3/uL (0.00-0.03); Imm Gran Pct Auto 0.2 % (0.0-0.4); Lymphocytes Absolute Auto 1.9 X10*3/uL (1.2-4.9); Mean Corpuscular HGB Conc 32.9 g/dl (31.0-35.0); Mean Corpuscular Hemoglobin 29.2 pg (27.0-33.0); Mean Corpuscular Volume 88.7 fL (80.0-98.0); NRBC Abs Auto 0.000 X10*3/uL (0.0-0.012); NRBC Pct Auto 0.0 /100WBC (0.0-0.2); Platelet Count 269 X10*3/uL (160-400); Red Blood Count 4.35 X10*6/uL (4.20-5.50); White Blood Count 8.6 X10*3/uL (4.8-10.8)
[2025-05-24 21:26] LABS: Appearance Urine Clear; Glucose Urine UA Negative (Negative); PH 6.0 (5.0-9.0); Specific Gravity - Urine 1.010 (1.005-1.025); UMIC TRIGGER UACC YES
[2025-05-24 21:27] LABS: UPreg QC Valid YES
[2025-05-24 21:37] LABS: Cannabinoid Screen Urine Not Detected (Not Detect)
[2025-05-24 21:47] LABS: Alanine Aminotransferase 10 U/L (0-31); Albumin Level 4.6 g/dL (3.5-5.0); Alkaline Phosphatase 64 U/L (39-117); Anion Gap 13 (12-20); Aspartate Amino Transferase 12 U/L (5-31); Blood Urea Nitrogen 9 mg/dL (9-16); Calcium 10.2 mg/dL (8.4-10.2); Carbon Dioxide 28 mmol/L (22-29); Chloride 102 mmol/L (96-108); Creatinine Clr Calc Pharmacy 87.0; Estimated Glomerular Filt Rate > 60; Potassium 3.7 mmol/L (3.3-5.1); Sodium 139 mmol/L (135-145); Total Protein 7.3 g/dL (6.5-8.0)
[2025-05-24 22:00] VITALS: BP 124/88; PULSE 101; RESP 16; TEMP 36.1; O2SAT 99
== END 2025-05-24 22:03 | disposition home or self-care (01) ==
LOC: HO.ED 21:56
PROVIDERS: Emergency Provider Emergency Medicine; PCP Nurse Practitioner Family
DX: F43.10 Post-traumatic stress disorder, unspecified (principal); R45.851 Suicidal ideations
CPT/HCPCS: 36415; 80053; 80307; 81001; 81025; 85025; 99285; S9485

== ENCOUNTER 2025-06-06 05:53 | Day surgery (SDC) | payer OTHER, SELFPAY ==
--- OUTSIDE RECORDS SUMMARY | 2025-03-09 05:40 | XMS_ITS ---
Author Organization [employer] [facility] Address [address] [address] Care Team Providers Care Trash Collector Truck Driver Name Role Phone JOSE ANTONIO MENON, COLETTE Primary Care Provider Adele Meier Unavailable [phone] REASON FOR VISIT Annual GENETICS TEACHER Physical Encounters Encounter Location Date Provider Diagnosis [facility] [employer] [facility] [address] [address] 03/09/2025 Adele Fairchild Plan Of Treatment No Information Progress Notes * MELISA THORNTONDOB:1985 (40 yo F)Acc No.[id number]:03/09/2025 Progress Note Patient: MELISA VIEIRA Appointment Provider: Jeffery Fairchild M.D. :1985 A ge:39 Y S ex:Female Date:03/09/2025 Address:[address] [place], [place] [phone] Pcp:COLETTE BRADY NP Subjective: * Chief Complaints: * 1 . Annual GENETICS TEACHER Physical. * Medical History: Objective: * Vitals: Assessment: Plan: * Treatment: * Images: Billing Information: * Visit Code: * Procedure Codes: * Electronic signature of Leon Fairchild MD on 05/16/2025 at 10:02 AM EDT Sign off status: Pending * Appointment Provider: Jeffery Fairchild M.D. Date: 0 03/09/2025 Generated for Lj marin/Jessika/Nickolasitting on: 10:02 AM EDT
--- OUTSIDE RECORDS SUMMARY | 2025-05-16 10:02 | XMS_ITS | Clinical Summary ---
Author Organization [facility] Address [address] [place] [id number] Phone Care Team Providers Care Safety Fire Boss Name Role Phone Marcela Gaviria MD Primary Care Provider [phone] Allergies Active Allergy Reactions Criticality Noted Date [...] topic Medical Devices Not on file Insurance [employer] [facility] [place] [employer] [facility] [place] [employer] [facility] [place] [facility] [place] Member Subscriber Plan / Payer (Ef fective 2020-Present) Name:Stella Capps Relation to Subscriber:Self Name:Stella Capps Payer ID:[id number] Group ID:Not on file Type:Medicaid Address: [place] [address] [place] [address] [facility] [place] [facility] [employer] [facility] [place] [place] [address] [place] [address] [facility] [place] [facility] Care Teams Safety Fire Boss Relationship Specialty Start Date End Date Marcela Gaviria MD [address] [place] [id number] PCP - General Internal Medicine 12/20/23 Additional Source Comments The information contained in this document represents components of the legal health record. It is not the complete legal health record.[facility]
--- OUTSIDE RECORDS SUMMARY | 2025-05-16 10:02 | XMS_ITS | Patient Health Record ---
Author Organization [facility] Address [address] [place] [address] Care Team Providers Care Athletic Instructor Name Role Phone COLETTE BRADY NP Primary Care Provider Adele Meier Unavailable [phone] Reason For Referral No Information Encounters Encounter Location Date Provider Diagnosis [facility] [address] [place] [address] 03/09/2025 Adele Fairchild Plan Of Treatment No Information Insurance Providers Payer Name Payer Address Payer Phone Subscriber Number Group Number Insured Name Patient Relationship to Insured Coverage Start Date Coverage End Date [facility] [address] [place] [id number] [phone] MELISA THORNTON Self - patient is the insured
[2025-06-06 06:26] VITALS: BMI 40.0
[2025-06-06 06:31] LABS: UPreg QC Valid YES
--- NOTE | 2025-06-06 06:48 | HO.ANESPROP2 ---
[facility] Active Problems Active Problems: All Active Problems Chronic post-traumatic stress disorder (PTSD) (Acute) MDD (major depressive disorder), recurrent, severe, with psychosis (Acute) Osteoarthritis of right knee (Acute) Chronic post-traumatic stress disorder (PTSD) (Chronic) Borderline personality disorder (Chronic) Auditory hallucinations (Acute) Port-A-Cath in place (Acute) Intentional self-harm (Acute) COPD (chronic obstructive pulmonary disease) (Acute) Asthma (Acute) Adjustment disorder (Acute) Injury of ligament of right knee (Acute) Sprain of anterior cruciate ligament of right knee (Acute) Hernia (Chronic) Increased BMI (Acute) GERD (gastroesophageal reflux disease) (Acute) Past Medical History Medical History Depression Schizoaffective disorder, depressive type Depression with suicidal ideation MDD (major depressive disorder), recurrent, severe, with psychosis Port-A-Cath in place History of electroconvulsive therapy COVID-19 COVID-19 Sprain of left foot Chronic post-traumatic stress disorder (PTSD) COPD (chronic obstructive pulmonary disease) Increased BMI GERD (gastroesophageal reflux disease) Recurrent major depression-severe Acute post-traumatic stress disorder Injury, self-inflicted Suicidal ideation Self-harming behavior Intentional self-harm Suicidal ideation Borderline personality disorder Schizoaffective disorder Adjustment disorder Asthma Depression Anxiety PTSD (post-traumatic stress disorder) Family History Family History Mother Brain cancer Other No family history of cardiac disease Family history of problems with anesthesia: No Surgical History History of Problems with Anesthesia: No Social History Social History Household Members: Other Household Members Other:: [employer] Housing: Other Housing Other:: ALF Do you presently have visiting nurse or other home services: No Alcohol intake: current Alcohol intake frequency: does not drink Patient Tobacco Use Status: Current everyday Tobacco user Tobacco use type: Cigarette Cigarette Packs Per Day: 0.5 Cigarettes Per Day: 10.0 Years Smoked: 20 e-Cigarette/Vaping Use: Never Used Second Hand Smoke Exposure: No Substance Use Type: Marijuana Advance Directives: No Advance Directives Information Provided: Yes service: No Current occupation: rt handed Sexual orientation: Straight/Heterosexual Meds Allergies Allergy/AdvReac Type Severity Reaction Status Date / Time carbamazepine (From TEGRETOL) AdvReac Mild Nausea and Verified 05/24/25 20:39 Vomiting topiramate (From Topamax) AdvReac Mild Nausea and Verified 05/24/25 20:39 Vomiting Home Medications ?Medication ?Instructions ?Recorded ?Confirmed ?Last Taken ?Type benztropine 0.5 mg tablet 0.5 mg PO BID 04/30/24 02/11/25 12/06/24 20:00 History clonidine HCl 0.1 mg tablet 0.1 mg PO TID 04/30/24 02/11/25 12/06/24 20:00 History omeprazole 20 mg capsule,delayed 20 mg PO Q OTHER DAY 04/30/24 02/11/25 10/05/24 History release prazosin 5 mg capsule 15 mg PO BEDTIME 04/30/24 02/11/25 12/06/24 20:00 History trazodone 100 mg tablet 200 mg PO BEDTIME insomnia 04/30/24 02/11/25 10/05/24 History multivitamin 1 tab PO DAILY 05/17/24 02/11/25 12/06/24 08:00 History zolpidem 10 mg tablet 10 mg PO BEDTIME insomnia 05/17/24 02/11/25 12/06/24 20:00 History cholecalciferol (vitamin D3) 25 25 mcg PO DAILY 07/29/24 02/11/25 12/06/24 08:00 History mcg (1,000 unit) tablet (Vitamin D3) haloperidol 5 mg tablet 5 mg PO TID 08/15/24 02/11/25 12/06/24 20:00 History haloperidol decanoate 100 mg/mL 75 mg IM Q28D 08/15/24 02/11/25 10/05/24 History intramuscular solution prazosin 1 mg capsule 1 mg PO BEDTIME 08/15/24 02/11/25 12/06/24 20:00 History calcium 600 mg (as 1 tab PO BID 11/02/24 02/11/25 12/06/24 20:00 History carbonate)-vitamin D3 10 mcg (400 unit) tablet fluticasone propionate 230 2 puff inhalation BID 11/02/24 02/11/25 12/06/24 20:00 History mcg-salmeterol 21 mcg/actuation HFA inhaler (Advair HFA) cetirizine 10 mg tablet 10 mg PO DAILY 11/06/24 02/11/25 12/06/24 08:00 History duloxetine 30 mg capsule,delayed 30 mg PO DAILY 11/06/24 02/11/25 12/06/24 09:00 History release diphenhydramine HCl 50 mg capsule 100 mg PO BEDTIME insomnia 12/03/24 02/11/25 12/06/24 20:00 History (Banophen) umeclidinium 62.5 mcg/actuation 1 inh inhalation DAILY 12/03/24 02/11/25 12/06/24 08:00 History blister powder for inhalation (Incruse Ellipta) acetaminophen 500 mg tablet 1,000 mg PO Q6H PRN Pain 02/12/25 02/12/25 Unknown History bacitracin zinc 500 unit/gram 1 appl topical BID PRN Wound Care 02/12/25 02/12/25 Unknown History topical ointment fluticasone propionate 50 2 spray intranasal DAILY 02/12/25 02/12/25 Unknown History mcg/actuation nasal spray,suspension ibuprofen 600 mg tablet 600 mg PO TID PRN Pain 02/12/25 02/12/25 Unknown History polyethylene glycol 3350 17 17 g PO DAILY PRN Constipation 02/12/25 02/12/25 Unknown History gram/dose oral powder (Miralax) sennosides 8.6 mg tablet (senna) 17.2 mg PO BEDTIME PRN No Bm in 3 02/12/25 02/12/25 Unknown History Days/ Exam Height,Weight and Vital Signs: Height 4 ft 11 in Weight 89.811 kg Pertinent Lab Results Pertinent Lab Results: Laboratory Tests 06/06/25 06:13 Urine Test NEGATIVE Airway Mallampati Class: II (poor dentition) TM Dist: >3cm Neck ROM: Full Heart: rrr Lungs: cta Assessment and Plan Assessment Anesthesia Assessment: Anesthesia Plan Discussed and Chart Reviewed Final Anesthetic Review Family History of Problems with Anesthesia: No History of Problems with Anesthesia: No NPO: Yes ASA Class: III Final Preanesthetic Review: No Changes in Pt Med Stat, Meds/Allgs Chart Reviewed and Consent Obtained/Reviewed Patient Risk: Intermediate Procedure Risk: Intermediate Anesthetic Plan Anesthetic Plan: GA Disposition: Standard PACU
--- NOTE | 2025-06-06 07:06 | MHC.SHP ---
Pre-Procedural Eval Section A - 24 Hr Update-Section A only Date of Service: 06/06/25 The patient is an INPATIENT: No Section B - Complete if H&P > 30 days Chief Complaint: depression Details of Present Illness: pt states doing well no concerns no new medical problems Allergies: Allergies Allergy/AdvReac Type Severity Reaction Status Date / Time carbamazepine (From TEGRETOL) AdvReac Mild Nausea and Verified 05/24/25 20:39 Vomiting topiramate (From Topamax) AdvReac Mild Nausea and Verified 05/24/25 20:39 Vomiting Review of Systems Sugical H&P ROS: Negative: Constitution, Neurological and Psychiatric Exam Surgical H&P Exam: Normal: HEENT, Normal: Extremities and Normal: Neurological Plan Diagnosis/Plan: Unchanged I have reviewed the history and physical and performed a pertinent physical examination on my patient. No changes have occurred unless specified. Time Spent With Patient Time: Total time managing care of this patient today ____ minutes.
--- NOTE | 2025-06-06 07:11 | P.PCN_ITS ---
ECT Procedure Note Diagnosis/Treatment Date of Service: 06/06/25 Diagnosis: Other (ptsd) Previous ECT Date: 05/16/25 Treatment: Maintenance Interval Clinical Notes: pt states he has been more stable enjoys [facility] home Time: Total time managing care of this patient today ____ minutes. ECT Settings Device: THYMATRON DGx Electrode Placement: Bitemporal Program/Pulse Width: 0.50 Energy Percent: 100 Seizure Duration By EEG (in seconds): 18 Medications Administration General Anesthetic: Etomidate (14) Muscle Relaxant: Succinylcholine (80) Airway Management Airway Management: Bag Mask Ventilation Treatment Recommendations Notes: f/u 4 wks Pt Tolerated Procedure w/o Issue: Yes
[2025-06-06 07:22] VITALS: BP 158/81; PULSE 77; RESP 13; TEMP 36.6; O2SAT 99
[2025-06-06 07:25] VITALS: BP 131/81; PULSE 68; RESP 13; O2SAT 99
[2025-06-06 07:30] VITALS: BP 127/74; PULSE 66; RESP 13; TEMP 36.6; O2SAT 97
[2025-06-06 07:35] VITALS: BP 120/72; PULSE 66; RESP 14; O2SAT 97
[2025-06-06 07:45] VITALS: BP 120/71; PULSE 63; RESP 16; O2SAT 97
[2025-06-06 08:00] VITALS: BP 152/86; PULSE 77; RESP 16; O2SAT 97
== END 2025-06-06 08:21 | disposition home or self-care (01) ==
PROVIDERS: Anesthesiology; PCP Nurse Practitioner Family; Visit Provider Psychiatry & Neurology Psychiatry
PROC: (CPT 90870; principal; 2025-06-06 07:00)
DX: F33.2 Major depressive disorder, recurrent severe without psychotic features (principal); F60.3 Borderline personality disorder; F43.10 Post-traumatic stress disorder, unspecified; Z91.51 Personal history of suicidal behavior; J44.9 Chronic obstructive pulmonary disease, unspecified; Z79.51 Long term (current) use of inhaled steroids; Z79.899 Other long term (current) drug therapy; F17.210 Nicotine dependence, cigarettes, uncomplicated; Z88.8 Allergy status to other drugs, medicaments and biological substances
CPT/HCPCS: 81025; 90870; J0330; J1642; J2405; J2704

== ENCOUNTER → 2025-06-06 05:53 | Outpatient (BNV) | payer OTHER, SELFPAY | PROVIDERS: PCP Nurse Practitioner Family; Visit Provider Psychiatry & Neurology Psychiatry | DX: F33.1 Major depressive disorder, recurrent, moderate (principal); F43.10 Post-traumatic stress disorder, unspecified | CPT/HCPCS: 90870 ==

== ENCOUNTER 2025-06-23 18:58 | Emergency (ER) | payer OTHER, SELFPAY ==
--- OUTSIDE RECORDS SUMMARY | 2025-03-09 04:40 | XMS_ITS ---
Author Organization [facility] Address [address] [address] Care Team Providers Care Clinical Operations Leader Name Role Phone JOSE ANTONIO MENON, COLETTE Primary Care Provider Adele Meier Unavailable [phone] REASON FOR VISIT Annual COLLEGE OF EDUCATION DEAN Physical Encounters Encounter Location Date Provider Diagnosis [facility] [address] [address] 03/09/2025 Adele Fairchild Plan Of Treatment No Information Progress Notes * MELISA THORNTONDOB:1985 (40 yo F)Acc No.[id number]:03/09/2025 Progress Note Patient: MELISA VIEIRA Appointment Provider: Jeffery Fairchild M.D. :1985 A ge:39 Y S ex:Female Date:03/09/2025 Address:[address] [place], [place] [phone] Pcp:COLETTE BRADY NP Subjective: * Chief Complaints: * 1 . Annual COLLEGE OF EDUCATION DEAN Physical. * Medical History: Objective: * Vitals: Assessment: Plan: * Treatment: * Images: Billing Information: * Visit Code: * Procedure Codes: * Electronic signature of Leon Fairchild MD on 06/23/2025 at 09:09 PM EST Sign off status: Pending * Appointment Provider: Jeffery Fairchild M.D. Date: 0 03/09/2025 Generated for Lj marin/Jessika/Nickolasitting on: 08/23/2024 09:09 PM EST
--- OUTSIDE RECORDS SUMMARY | 2025-06-20 23:59 | XMS_ITS | Continuity of Care Document ---
Author Organization [facility] Address [address] [place] [address]- Support Name Relationship Address Phone THORNTON, CRYSTAL Personal Relationship Unknown Unav ailable KARUNA, VICENTA unrelated friend Unknown Unavailabl e THORNTON, CRYSTAL Personal Relationship Unknown Unav ailable ORTEA, STEVEN mother Unknown Unavailable [place], [place] Other Unknown Unavailable THORNTON, CRYSTAL Personal Relationship Unknown Unav ailable THORNTON, CRYSTAL Personal Relationship Unknown Unav ailable THORNTON, CRYSTAL Personal Relationship Unknown Unav ailable THORNTON, CHARLY mother Unknown Unavailable THORNTON, GAVIN sibling Unknown Unavailable THORNTON, CRYSTAL Personal Relationship Unknown Unav ailable THORNTON, CRYSTAL Personal Relationship Unknown Unav ailable THORNTON, CRYSTAL Personal Relationship Unknown Unav ailable THORNTON, CRYSTAL Personal Relationship Unknown Unav ailable THORNTON, CRYSTAL Personal Relationship Unknown Unav ailable THORNTON, CRYSTAL Personal Relationship Unknown Unav ailable BLANC, SEBASTIAN Personal Relationship Unknown Unava ilable THORNTON, CRYSTAL Personal Relationship Unknown Unav ailable ELDRIGE, CORY Other Unknown Unavailable Care Team Providers Care Drawing Tracer Name Role Phone Hafsa Holcomb NP Primary Care Physician [phone] Encounter [facility] [place] Date(s): 06/13/25 - 06/20/[address] [address]- Encounter Diagnosis Abdominal pain(Discharge Diagnosis) - 06/13/25 Constipation(Discharge Diagnosis) - 06/13/25 Viral illness(Discharge Diagnosis) - 06/13/25 Attending Physician: Hafsa Holcomb NP Encounter Type: Office Visit Allergies, Adverse Reactions, Alerts Substance Criticality Severity Reaction Reaction Severity Status topiramate Nausea and vomiting Active Tegretol Active Functional Status Functional Status Assessment Assessment Assessment Component Result Effecti ve Date Disability status [CUBS] I'm Thriving - no identified disability 06/13/25 Are you deaf, or do you have serious difficulty hearing No 06/13/25 Because of a physica l, mental, or emotional condition, do you have difficulty doing errands alone such as visiting a physician's office or shopping Yes 06/13/25 Do you have difficul ty dressing or bathing Yes 06/13/25 Do you need any natalia tional assistance or accommodations during your visit Yes 06/13/25 Do you have serious difficulty walking or climbing stairs Yes 06/13/25 Because of a physica l, mental, or emotional condition, do you have serious difficulty concentrating, remembering, or making decisions Yes 06/13/25 Difficulty Reading O r Writing Yes 06/13/25 Are you blind, or do you have serious difficulty seeing, even when wearing glasses Yes 06/13/25 Difficulty communica ting in usual language No 06/13/25 Immunizations Given and Recorded Vaccine Date Status Refusal Reason tetanus/diphtheria/pertussis, acel(Tdap) 09/27/23 Given tetanus/diphtheria/pertussis, acel(Tdap) 11/02/09 Given pneumococcal 23-valent vaccine 05/11/09 Given Diphth-Tetanus Toxoids Adsorbed(oldterm) 04/15/05 Given Medications Advair HFA 230 mcg / 21 mcg 2 puffs, Inhalation, 2 times a day, # 12 Gm, 11 Refills, Maintenance, 06/29/24 1:29:00 PM EST, Aerosol, [facility] - [place], [place], Partial fill upon patient request if the prescription is for a schedule II opioid drug., 2 puffs Inhalation 2 times a day,x30 days, 150, cm, 06/29/24 12:57:00 EST, Height, 90.4, kg, 06/12/24 15:51:00 EDT, Dry Weight Start Date: 06/29/24 Stop Date: 06/24/25 Status: Ordered Medication Dispense Status: Completed Quantity: 12.0 Unit: g Total Allowed Fills: 12 Fills Dispensed: 0 bacitracin zinc 500 units/g topical ointment See Instructions, Apply twice daily to wounds, # 28.4 Gm, 1 Refills, Maintenance, 03/08/25 4:02:00 PM EDT, [facility], [facility], Apply twice daily to wounds, 150, cm, 07/16/25 12:45:00 EDT, Height, 87, kg, 02/05/25 14:06:00 EDT, Dry Weight Start Date: 03/08/25 Status: Ordered Medication Dispense Status: Completed Quantity: 28.4 Unit: g Total Allowed Fills: 1 Fills Dispensed: 0 Banophen 50 mg oral capsule 2 capsule = 100 mg, By Mouth, Daily at bedtime, 0 Refills, Maintenance, 02/28/25 1:39:00 PM EDT, Partial fill upon patient request if the prescription is for a schedule II opioid drug. Start Date: 02/28/25 Status: Ordered Medication Dispense Status: Completed Total Allowed Fills: 1 Fills Dispensed: 0 benztropine 0.5 mg oral tablet 0.5 mg, 1, tablet, By Mouth, 2 times a day, Refills 0, Maintenance, 09/28/23 6:07:00 AM EST, Partialfill upon patient request if the prescription is for a schedule II opioid drug. Start Date: 09/28/23 Status: Ordered Medication Dispense Status: Completed Total Allowed Fills: 1 Fills Dispensed: 0 calcium-vitamin D 600 mg-400 intl units oral tablet 1 tablet, By Mouth, 2 times a day, # 180 tablet, 3 Refills, Maintenance, 03/26/25 12:49:00 PM EDT, Tablet, [facility], Partial fill upon patient request if the prescription is for a schedule II opioid drug., 1 tablet By Mouth 2 times a day,x90 days, 150, cm, 02/28/25 12:45:00 EDT, Height, 87, kg, 02/05/25 14:06:00 EDT, Dry Weight Start Date: 03/26/25 Stop Date: 03/21/26 Status: Ordered Medication Dispense Status: Completed Quantity: 180.0 Unit: tablet Total Allowed Fills: 4 Fills Dispensed: 0 cetirizine 10 mg oral tablet 1 tablet, By Mouth, Daily, # 90 tablet, 1 Refills, Maintenance, 04/18/25 10:40:00 AM EDT, [facility], 150, cm, 04/18/25 10:32:00 EDT, Height, 87, kg, 02/05/25 14:06:00 EDT, Dry Weight Start Date: 04/18/25 Status: Ordered Medication Dispense Status: Completed Quantity: 90.0 Unit: tablet Total Allowed Fills: 2 Fills Dispensed: 0 cloNIDine 0.1 mg oral tablet 0.1 mg, 1, tablet, By Mouth, 3 times a day, 8am, 2pm, 8pm, hold for dizziness/ lightheadedness, Refills 0, Maintenance, 09/28/23 6:07:00 AM EST, Partial fill upon patient request if the prescription is for a schedule II opioid drug. Start Date: 09/28/23 Status: Ordered Medication Dispense Status: Completed Total Allowed Fills: 1 Fills Dispensed: 0 D3 1000 intl units (25 mcg) oral tablet 1 tablet = 25 mcg, By Mouth, Daily, # 90 tablet, 3 Refills, Maintenance, 03/26/25 12:57:00 PM EDT, [facility], Partial fill upon patient request if the prescription is for a schedule II opioid drug., 150, cm, 02/28/25 12:45:00 EDT, Height, 87, kg, 02/05/25 14:06:00 EDT, Dry Weight Start Date: 03/26/25 Stop Date: 03/21/26 Status: Ordered Medication Dispense Status: Completed Quantity: 90.0 Unit: tablet Total Allowed Fills: 4 Fills Dispensed: 0 DAILY FIBER 400 MG CAPS DAILY FIBER 400 MG CAPS, See Instructions, # 360 each, 0 Refills, Maintenance, Take 2 BID PO, 03/26/25 12:54:00 PM EDT, 150, cm, 02/28/25 12:45:00 EDT, Height, 87, kg, 02/05/25 14:06:00 EDT, Dry Weight Start Date: 03/26/25 Status: Ordered Medication Dispense Status: Completed Quantity: 360.0 Unit: each Total Allowed Fills: 1 Fills Dispensed: 0 Diapers See Instructions, # 120 each, Maintenance, Use as directed, 04/10/24 2:49:00 PM EDT, Supply Start Date: 04/10/24 Status: Ordered Medication Dispense Status: Completed Quantity: 120.0 Unit: each Total Allowed Fills: 1 Fills Dispensed: 0 Indications: Unspecified urinary incontinence; diclofenac 1% topical gel 1 application, Topically, 4 times a day, # 100 Gm, 6 Refills, Maintenance, 05/11/24 3:03:00 PM EDT, [facility], [facility] - [place], [place], Partial fill upon patient request if the prescription is for a schedule II opioid drug., 150, cm, 05/11/24 14:38:00 EDT, Height, 90.7, kg, 05/09/24 2 2:02:00 EDT, Dry Weight Start Date: 05/11/24 Stop Date: 12/07/24 Status: Ordered Medication Dispense Status: Completed Quantity: 100.0 Unit: g Total Allowed Fills: 7 Fills Dispensed: 0 Diflucan 150 mg oral tablet 1 tablet = 150 mg, By Mouth, Once, # 1 tablet, 0 Refills, Soft Stop, 05/28/25 10:28:00 AM EDT, Tablet, [facility], Partial fill upon patient request if the prescription is for a schedule II opioid drug., 150.4, cm, 05/24/25 9:05:00 EDT, Height, 87, kg, 02/05/25 14:06:00 EDT, Dry Weight Start Date: 05/28/25 Status: Ordered Medication Dispense Status: Completed Quantity: 1.0 Unit: tablet Total Allowed Fills: 1 Fills Dispensed: 0 duloxetine 30 mg oral enteric coated capsule 1 capsule = 30 mg, By Mouth, Daily, # 30 capsule, 0 Refills, Maintenance, 04/18/25 10:42:00 AM EDT, Partial fill upon patient request if the prescription is for a schedule II opioid drug. Start Date: 04/18/25 Status: Ordered Medication Dispense Status: Completed Quantity: 30.0 Unit: capsule Total Allowed Fills: 1 Fills Dispensed: 0 duloxetine 60 mg oral enteric coated capsule 1 capsule = 60 mg, By Mouth, Daily, 0 Refills, Maintenance, 09/28/23 6:07:00 AM EST, Partial fill upon patient request if the prescription is for a schedule II opioid drug. Start Date: 09/28/23 Status: Ordered Medication Dispense Status: Completed Total Allowed Fills: 1 Fills Dispensed: 0 fluticasone 50 mcg/inh nasal spray 2 sprays = 100 mcg, Nares, Both, Daily, # 3 each, 2 Refills, Maintenance, 03/26/25 10:42:00 AM EDT, [place], [facility], Partial fill upon patient request if the prescription is for a schedule II opioid drug., 2 sprays Nares, Both Daily,x90 days, 150, cm, 02/28/25 12:45:00 EDT, Height, 87, kg, 02/05/25 14:06:00 EDT, Dry Weight Start Date: 03/26/25 Stop Date: 12/21/25 Status: Ordered Medication Dispense Status: Completed Quantity: 3.0 Unit: each Total Allowed Fills: 3 Fills Dispensed: 0 haloperidol 5 mg oral tablet 5 mg, 1, tablet, By Mouth, 3 times a day, PRN, for agitation / hallucinations, Refills 0, Maintenance, Other, 09/28/23 6:07:00 AM EST, Partial fill upon patient request if the prescription is for a schedule II opioid drug. Start Date: 09/28/23 Status: Ordered Medication Dispense Status: Completed Total Allowed Fills: 1 Fills Dispensed: 0 haloperidol decanoate 100 mg/ml injectable solution 75 mg q 28 days, 0 Refills, Maintenance, 01/19/25 10:27:00 AM EDT, Partial fill upon patient request if the prescription is for a schedule II opioid drug. Start Date: 01/19/25 Status: Ordered Medication Dispense Status: Completed Total Allowed Fills: 1 Fills Dispensed: 0 Incruse Ellipta 62.5 mcg/inh inhalation powder 1 each, Inhalation, Every 24 hours, doses should be taken at least 24 hours apart, # 1 each, 11 Refills, Maintenance, 06/29/24 1:29:00 PM EST, Powder, [facility] [place], [place], Partial fill upon patient request if the prescription is for a schedule II opioid drug., 150, cm, 06/29/24 12:57:00 EST, Height, 90.4, kg, 06/12/24 15:51:00 EDT, Dry Weight Start Date: 06/29/24 Stop Date: 06/24/25 Status: Ordered Medication Dispense Status: Completed Quantity: 1.0 Unit: each Total Allowed Fills: 12 Fills Dispensed: 0 Knee Support See Instructions, # 2 each, Maintenance, Wear as directed, 04/10/24 2:48:00 PM EDT, Supply Start Date: 04/10/24 Status: Ordered Medication Dispense Status: Completed Quantity: 2.0 Unit: each Total Allowed Fills: 1 Fills Dispensed: 0 Indications: Pain in right knee; Personal history of other (healed) physical injury and trauma; lithium 450 mg oral tablet, extended release 2 tablet = 900 mg, By Mouth, 2 times a day, # 120 tablet, 0 Refills, Maintenance, 02/28/25 1:44:00 PM EDT, ER Tablet, Partial fill upon patient request if the prescription is for a schedule II opioid drug. Start Date: 02/28/25 Status: Ordered Medication Dispense Status: Completed Quantity: 120.0 Unit: tablet Total Allowed Fills: 1 Fills Dispensed: 0 LORazepam 1 mg oral tablet 1 tablet = 1 mg, By Mouth, 3 times a day, 0 Refills, Maintenance, 09/28/23 6:09:00 AM EST, Partial fill upon patient request if the prescription is for a schedule II opioid drug. Start Date: 09/28/23 Status: Ordered Medication Dispense Status: Completed Total Allowed Fills: 1 Fills Dispensed: 0 MiraLax oral powder for reconstitution = 17 Gm, By Mouth, Daily, for 90 days, dissolve in 4 to 8 oz of beverage, # 1,530 Gm, 3 Refills, Acute 03/21/26 12:56:00 PM EDT, 03/26/25 12:56:00 PM EDT, REC Powder, [facility], Partial fill upon patient request if the prescription is for a schedule II opioid drug., 17 Gm By Mouth Daily,x90 days,Instr:dissolve in 4 to 8 oz of beverage, 150, cm, 02/28/25 12:45:00 EDT, Height, 87, kg, 02/05/25 14:06:00 EDT, Dry Weight Start Date: 03/26/25 Stop Date: 03/21/26 Status: Ordered Medication Dispense Status: Completed Quantity: 1530.0 Unit: g Total Allowed Fills: 4 Fills Dispensed: 0 multivitamin Multiple Vitamins oral tablet 1 tablet, By Mouth, Daily, # 90 tablet, 3 Refills, Maintenance, 05/08/25 10:22:00 AM EDT, Tablet, [facility], Partial fill upon patient request if the prescription is for a schedule II opioid drug., 1 tablet By Mouth Daily,x90 days, 150, cm, 04/20/25 11:11:00 EDT, Height, 87, kg, 02/05/25 14:06:00 EDT, Dry Weight Start Date: 05/08/25 Stop Date: 05/03/26 Status: Ordered Medication Dispense Status: Completed Quantity: 90.0 Unit: tablet Total Allowed Fills: 4 Fills Dispensed: 0 Nebulizer Nebulizer, See Instructions, # 1 each, Refills 0, Tot. Refills 0, Maintenance, Nebulizer Small volume nebulizer/compressor, all nebulizer circuits, filters, mask and related supplies Length of Need: 99 months Diagnosis: Asthma, 06/29/24 2:00:00 PM EST, Supply Start Date: 06/29/24 Status: Ordered Medication Dispense Status: Completed Quantity: 1.0 Unit: each Total Allowed Fills: 1 Fills Dispensed: 0 nicotine 4 mg oral transmucosal gum 1 each = 4 mg, Chew, Every 2 hours, PRN as needed for smoking cessation, for 6 week(s), # 160 each,0 Refills, Acute 06/27/25 2:14:00 PM EST, 05/16/25 2:14:00 PM EDT, Gum, [facility], Partial fill upon patient request if the prescription is for a schedule II opioid drug., 150.4, cm, 05/16/25 13:38:00 EDT, Height, 87, kg, 02/05/25 14:06:00 EDT, Dry Weight Start Date: 05/16/25 Stop Date: 06/27/25 Status: Ordered Medication Dispense Status: Completed Quantity: 160.0 Unit: each Total Allowed Fills: 1 Fills Dispensed: 0 omeprazole 20 mg oral delayed release tablet 1 tablet = 20 mg, By Mouth, Every 48 hours, # 45 tablet, 3 Refills, Maintenance, 03/26/25 12:49:00 PM EDT, EC Tablet, [facility], Partial fill upon patient request if the prescription is for a schedule II opioid drug., 150, cm, 02/28/25 12:45:00 EDT, Height, 87, kg, 02/05/25 14:06:00 EDT, Dry Weight Start Date: 03/26/25 Stop Date: 03/21/26 Status: Ordered Medication Dispense Status: Completed Quantity: 45.0 Unit: tablet Total Allowed Fills: 4 Fills Dispensed: 0 ondansetron 4 mg oral tablet 1 tablet = 4 mg, By Mouth, Every 8 hours, PRN Nausea, # 15 tablet, 0 Refills, Acute 05/17/26 12:58:00 PM EDT, 05/17/25 12:59:00 PM EDT, Tablet, [facility], Partial fill upon patient request if theprescription is for a schedule II opioid drug., 150.4, cm, 05/16/25 13:38:00 EDT, Height, 87, kg, 02/05/25 14:06:00 EDT, Dry Weight Start Date: 05/17/25 Stop Date: 05/17/26 Status: Ordered Medication Dispense Status: Completed Quantity: 15.0 Unit: tablet Total Allowed Fills: 1 Fills Dispensed: 0 Indications: Nausea; prazosin 1 mg oral capsule 1 mg, 1, capsule, By Mouth, Daily at bedtime, Refills 0, Maintenance, 09/28/23 6:08:00 AM EST, Partial fill upon patient request if the prescription is for a schedule II opioid drug. Start Date: 09/28/23 Status: Ordered Medication Dispense Status: Completed Total Allowed Fills: 1 Fills Dispensed: 0 prazosin 5 mg oral capsule 15 mg, 3, capsule, By Mouth, Daily at bedtime, Refills 0, Maintenance, 09/28/23 6:07:00 AM EST, Partial fill upon patient request if the prescription is for a schedule II opioid drug. Start Date: 09/28/23 Status: Ordered Medication Dispense Status: Completed Total Allowed Fills: 1 Fills Dispensed: 0 Simply Saline 0.9% spray 1 sprays, Nares, Both, 4 times a day, PRN for dry nasal passages, # 45 mL, 0 Refills, Maintenance, 02/05/25 2:22:00 PM EDT, [place], [facility] [address] [place] [address], Partial fill upon patient request if the prescription is for a schedule II opioid drug., 1 sprays Nares, Both 4 times a day,x7 days,PRN:for dry nasal passages, 150, cm, 02/05/25 14:06:00 EDT, Height, 87, kg, 02/05/25 14:06:00 EDT, Dry Weight Start Date: 02/05/25 Stop Date: 02/12/25 Status: Ordered Medication Dispense Status: Completed Quantity: 45.0 Unit: mL Total Allowed Fills: 1 Fills Dispensed: 0 traZODone 100 mg oral tablet 2 tablets, By Mouth, Daily at bedtime, PRN, Refills 0, Maintenance, Sleep, 09/28/23 6:08:00 AM EST, Partial fill upon patient request if the prescription is for a schedule II opioid drug. Start Date: 09/28/23 Status: Ordered Medication Dispense Status: Completed Total Allowed Fills: 1 Fills Dispensed: 0 Tylenol Extra Strength 500 mg oral tablet 2 tablet = 1,000 mg, By Mouth, Every 6 hours, PRN as needed for fever, 0 Refills, Maintenance, 02/28/25 1:43:00 PM EDT, Tablet, Partial fill upon patient request if the prescription is for a schedule II opioid drug. Start Date: 02/28/25 Status: Ordered Medication Dispense Status: Completed Total Allowed Fills: 1 Fills Dispensed: 0 Ventolin HFA 108 mcg/inh inhalation aerosol with adapter 2 puffs, Inhalation, 4 times a day, PRN for wheezing, j45.40, # 1 each, 6 Refills, Maintenance, 04/18/25 10:39:00 AM EDT, Aerosol, [facility], Partial fill upon patient request if the prescriptionis for a schedule II opioid drug., 150, cm, 04/18/25 10:32:00 EDT, Height, 87, kg, 02/05/25 14:06:00 EDT, Dry Weight Start Date: 04/18/25 Stop Date: 11/14/25 Status: Ordered Medication Dispense Status: Completed Quantity: 1.0 Unit: each Total Allowed Fills: 7 Fills Dispensed: 0 zolpidem 10 mg oral tablet 1 tablet = 10 mg, By Mouth, Daily at bedtime, # 30 tablet, 0 Refills, Maintenance, 02/28/25 1:43:00 PM EDT, Partial fill upon patient request if the prescription is for a schedule II opioid drug. Start Date: 02/28/25 Status: Ordered Medication Dispense Status: Completed Quantity: 30.0 Unit: tablet Total Allowed Fills: 1 Fills Dispensed: 0 Mental Status Mental Status Assessment Assessment Assessment Component Result Effecti ve Date Patient Health Questionnaire 2 item (PHQ-2) total score [Reported] 4 06/13/25 Mental Status Assessment Assessment Assessment Component Result Effecti ve Date Patient Health Questionnaire 9 item (PHQ-9) total score [Reported] 23 06/13/25 Problem List Condition Confirmation Course Effective Dates Status H ealth Status Informant Bipolar disorder Confirmed Active Borderline personality disorder Confirmed Active Cannabis dependence Confirmed Active Papanicolaou smear of cervix with atypical squamous cells of undetermined significance (ASC-US) Confirmed Active Chronic constipation Confirmed Active Frequent headaches Confirmed Active GERD (gastroesophageal reflux disease) Confirmed Active Genital herpes simplex Confirmed Active History of tear of ACL (anterior cruciate ligament) Confirmed Active 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 Lumbago Confirmed Active Moderate persistent asthma Confirmed Active Cigarette nicotine dependence Confirmed Active Pulmonary nodule Confirmed Active Right knee pain Confirmed Active Encounter for smoking cessation counseling Confirmed Active Schizoaffective disorder Confirmed Active Seasonal allergies Confirmed Active MDD (major depressive disorder), severe Confirmed Active Severe obesity (BMI 35.0-39.9) with comorbidity Confirmed Active Tobacco dependence syndrome Confirmed Active Urinary incontinence Confirmed Active Diagnosis Diagnosis Type Effective Dates Health Status Cl inical Service Informant Abdominal pain Discharge Diagnosis 06/13/25 Constipation Discharge Diagnosis 06/13/25 Viral illness Discharge Diagnosis 06/13/25 Vital Signs Most recent to oldest [Reference Range]: 1 Height 150.4 cm (06/13/25 12:58 PM) Weight 88 kg (06/13/25 12:58 PM) Oxygen Saturation [94-100 %] 97 % (06/13/25 12:58 PM) Pulse Rate [55-90 bpm] 85 bpm (06/13/25 12:58 PM) Body Mass Index [18.5-24.99 kg/m2] 38.9 kg/m2 *H* (06/13/25 12:58 PM) Temperature [96.8-100.4 DegF] 98.9 DegF (06/13/25 12:58 PM) Mode of Delivery (Oxygen) Room air (06/13/25 12:58 PM) Blood pressure sites Arm, left (06/13/25 12:58 PM) Temperature Route Oral (06/13/25 12:58 PM) Weight Obtained Via Standing scale (06/13/25 12:58 PM) Note * Mony Villarreal: PERFORM Event Display: Patient Education/Instruction Authored Date: [id number] Ambulatory Adult Visit Summary [facility] [address] [place] [address] Name: MELISA THORNTON : 1985?? Visit: 06/13/2025 12:57?? Ambulatory Visit Instructions ?? Your Care Team Primary Care Provider Hafsa Holcomb NP? This Visit Provider Hafsa Holcomb NP Your Diagnosis Abdominal pain Abdominal pain Constipation Viral illness Vitals Signs Temperature: 98.9 DegF Height: 150.4 cm Pulse Rate: 85 bpm Weight: 88 kg Oxygen Saturation: 97 % Body Mass Index:??38.9 kg/m2??High ?? Body surface area: 1.92 What to do next Scheduled Follow-Up Appointments Wednesday 11:20 AM EST ?? Type: Procedure With: Rivka LEUNG, Yaquelin Alva Where: [facility] [address] [facility] [address] [place] [address]- Status: Pending Future Orders XR Abdomen AP, Routine, Reason for Exam: Other:, Constipation, Patient Does Not Need Assistance, Once, *Est. 06/13/25, Order for Today CBC w/ Differential - Routine, Once, 06/13/25 13:18:00 EDT, Order for Today, [facility], Blood?? Comprehensive Metabolic Panel - Routine, Once, 06/13/25 13:18:00 EDT, Order for Today, [facility], Blood?? Medications The list below reflects the information in our records and provided by you today along with any changes made during this visit. Please continue your medications until treatment is completed or stopped by your provider. If this is different from the information you have or there are other questions,please contact the prescribing provider. What How Much When Why Instructions Unchanged Acetaminophen (Tylenol Extra Strength 500 mg oral tablet) 2 tab(s) Oral Every 6 hours as needed for as needed for fever Unchanged Albuterol (Ventolin HFA 108 mcg/ inh inhalation aerosol with adapter) 2 puff(s) Inhalation 4 times a day as needed for for wheezing Duration: 30 Days Special Instructions: j45.40 Ordering Physician: Alejandro SOLOMON, Sofía Morfin ?? Unchanged Bacitracin Topical (bacitracin zinc 500 units/ g topical ointment) See instructions Special Instructions: Apply twice daily to wounds Ordering Physician: Hafsa Holcomb NP ?? Unchanged Benztropine (benztropine 0.5 mg oral tablet) 1 tab(s) Oral Twice a day Unchanged Calcium And Vitamin D Combination (calcium-vitamin D 600 mg-400 intl units oral tablet) 1 tab(s) Oral Twice a day Duration: 90 Days Ordering Physician: Hafsa Holcomb NP Unchanged Cetirizine (cetirizine 10 mg oral tablet) 1 tab(s) Oral Daily Ordering Physician: Sofía Shah Unchanged Cholecalciferol (D3 1000 intl units (25 mcg) oral tablet) 1 tab(s) Oral Daily Duration: 90 Days Ordering Physician: Hafsa Holcomb NP Unchanged Clonidine (cloNIDine 0.1 mg oral tablet) 1 tab(s) Oral 3 times a day Special Instructions: 8am, 2pm, 8pm, hold for dizziness/ lightheadedness Unchanged Diclofenac Topical (diclofenac 1% topical gel) 1 jesús Topically 4 times a day Duration: 30 Days Ordering Physician: Shaylee Sorto NP Unchanged DiphenhydrAMINE (Banophen 50 mg oral capsule) 2 capsule Oral Daily at Bedtime Unchanged Duloxetine (duloxetine 30 mg oral enteric coated capsule) 1 capsule Oral Daily Unchanged Duloxetine (duloxetine 60 mg oral enteric coated capsule) 1 capsule Oral Daily Unchanged Durable Medical Equipment (Diapers) See instructions Urinary incontinence Special Instructions: Use as directed Ordering Physician: Hafsa Holcomb NP ?? Unchanged Durable Medical Equipment (Knee Support) See instructions History of tear of ACL (anterior cruciate ligament) Right knee pain Special Instructions: Wear as directed Ordering Physician: Hafsa Holcomb NP ?? Unchanged Durable Medical Equipment (Nebulizer) See instructions Special Instructions: Nebulizer
Small volume nebulizer/ compressor, all nebulizer circuits, filters, mask and related supplies
Length of Need: 99 months
Diagnosis:
Asthma Ordering Physician: Deuce Torres MD ?? Unchanged Fluconazole (Diflucan 150 mg oral tablet) 1 tab(s) Oral Once Ordering Physician: Stephanie Sanches NP Unchanged Fluticasone Nasal (fluticasone 50 mcg/ inh nasal spray) 2 spray(s) Nares, Both Daily Duration: 90 Days Ordering Physician: Hafsa Holcomb NP Unchanged Fluticasone-Salmeterol (Advair HFA 230 mcg / 21 mcg) 2 puff(s) Inhalation Twice a day Duration: 30 Days Ordering Physician: Deuce Torres MD Unchanged Haloperidol (haloperidol 5 mg oral tablet) 1 tab(s) Oral 3 times a day as needed for Other Special Instructions: for agitation / hallucinations Unchanged Haloperidol (haloperidol decanoate 100 mg/ ml injectable solution) Special Instructions: 75 mg q 28 days ?? Unchanged [place] (lithium 450 mg oral tablet, extended release) 2 tab(s) Oral Twice a day Unchanged Lorazepam (LORazepam 1 mg oral tablet) 1 tab(s) Oral 3 times a day Unchanged Miscellaneous Rx (DAILY FIBER 400 MG CAPS) See instructions Special Instructions: Take 2 BID PO Ordering Physician: Hafsa Holcomb NP ?? Unchanged Multivitamin (multivitamin Multiple Vitamins oral tablet) 1 tab(s) Oral Daily Duration: 90 Days Ordering Physician: Hafsa Holcomb NP Unchanged Nicotine (nicotine 4 mg oral transmucosal gum) 1 Each Chew Every 2 hours as needed for as needed for smoking cessation Duration: 6 week(s) Ordering Physician: Hafsa Holcomb NP Unchanged Omeprazole (omeprazole 20 mg oral delayed release tablet) 1 tab(s) Oral Every 48 hours Duration: 90 Days Ordering Physician: Hafsa Holcomb NP Unchanged Ondansetron (ondansetron 4 mg oral tablet) 1 tab(s) Oral Every 8 hours as needed for Nausea Nausea Ordering Physician: Heri Campbell MD Unchanged Polyethylene Glycol 3350 (MiraLax oral powder for reconstitution) 17 gram Oral Daily Duration: 90 Days Special Instructions: dissolve in 4 to 8 oz of beverage Ordering Physician: Hafsa Holcomb NP ?? Unchanged Prazosin (prazosin 1 mg oral capsule) 1 capsule Oral Daily at Bedtime Unchanged Prazosin (prazosin 5 mg oral capsule) 3 capsule Oral Daily at Bedtime Unchanged Sodium Chloride Nasal (Simply Saline 0.9% spray) 1 spray(s) Nares, Both 4 times a day as needed for for dry nasal passages Duration: 7 Days Ordering Physician: Sanjay Onofre Unchanged Trazodone (traZODone 100 mg oral tablet) 2 tablets Oral Daily at Bedtime as needed for Sleep Unchanged umeclidinium (Incruse Ellipta 62.5 mcg/ inh inhalation powder) 1 Each Inhalation Every 24 hours Duration: 30 Days Special Instructions: doses should be taken at least 24 hours apart Ordering Physician: Deuce Torres MD ?? Unchanged Zolpidem (zolpidem 10 mg oral tablet) 1 tab(s) Oral Daily at Bedtime Test Performed Below is a partial list of the tests performed during your Visit. You may have had other tests and procedures not included in this list. Please discuss all test results with your provider. CBC w/ Differential?-- Results Pending -- Comprehensive Metabolic Panel?-- Results Pending -- Medications and Immunizations Administered Medications Given During Visit No medications given during this visit.?? Allergies (NKA means No Known Allergies) Tegretol topiramate??Nausea and vomiting Common Emergency Awareness Tips IS IT A STROKE? Act FAST and Check for these signs: FACE Does the face look uneven? ARM Does one arm drift down? SPEECH Does their speech sound strange? TIME Call at any sign of stroke ?? Heart Attack Signs Chest discomfort: Most heart attacks involve discomfort in the center of the chest and lasts more than a few minutes, or goes away and comes back. It can feel like uncomfortable pressure, squeezing, fullness or pain. Discomfort in upper body: Symptoms can include pain or discomfort in one or both arms, back, neck, jaw or stomach. Shortness of breath: With or without discomfort. Other signs: Breaking out in a cold sweat, nausea, or lightheaded. Remember, MINUTES DO MATTER. If you experience any of these heart attack warning signs, call to get immediate medical attention! ?? Smoking can increase your chances of developing chronic health problems and can cause harmful effects to other family members in your house. If you smoke, you are strongly encouraged to quit. Please call [employer] at [phone] or [phone] ([phone]) or log in to [email or web address] for referrals to smoking cessation programs. ?? The National Suicide Prevention Hotline is available 08/03 if you or someone you know needs to find a reason to keep living. By calling 1-640-623-uaxk (1465) you'll be connected to a skilled, trained counselor at a crisis center in your area. [facility] eventuosity Portal You can view and manage your care through the patient portal or by using a health care jesús of your choosing. [employer] is a website that allows you to securely view your medical information including your hospital discharge summary, office visit summaries, medications and follow-up visits. You can also request appointments, renew medications, and request access to your medical information using a health care jesús of your choosing, or just ask a question. You can enroll at [email or web address] or register during your next office visit. [facility], in keeping with [facility] guidance, no longer requires face masks for staff, patientsor visitors in most situations. Similiar to time spent indoors at other locations, there is the chance that you were exposed to repiratory viruses during your time with us (such as flu or COVID-19). If you develop symptoms concerning for a viral respiratory infection, please seek testing (and treatment if indicated) from your medical provider or home test kit. ?? Disclaimer: The information provided is of a general nature and is intended to be used in conjunction with the recommendations and advice of your health care practitioner. Every effort has been made to ensure that the information provided is accurate and complete at the time it is provided to you however, as your needs change, or, as new information becomes available, different or additional instructions may be required. ?? If you have questions, please consult with your primary care provider or pharmacist, as appropriate. This information is not intended to serve as substitution for assessment and evaluation by a qualified health care provider. If you do not have a primary care provider, you may find a [facility] provider by calling [facility] eventuosity Link at [phone]. Patient Care team information Care Team Personnel Name: Lynnette Veloz RN Position: [facility] Reji RN Member Role: Primary Care Nurse Name: Shaylee Schilling RN Position: [facility] RN Member Role: Primary Care Nurse Name: Arlen Charles RN Position: [facility] RN Member Role: Primary Care Nurse Name: Sofía Reno RN Position: [facility] IVANNA Nurse Member Role: Primary Care Nurse Name: Arlen Villarreal RN Position: [facility] ED RN W/OE and Tasks Member Role: Primary Care Nurse Name: Hafsa Holcomb NP Position: [facility] PCO Associate Professional Member Role: PCP Address: [address] [facility] [address] [place] [address]- Telecom: Name: Felicia Shaw RN Position: [facility] ED RN W/OE and Tasks Member Role: Primary Care Nurse Name: Rosio Medrano RN Position: [facility] AMB Nurse Member Role: Primary Care Nurse Name: Paige Turner RN Position: [facility] Hospital Pole Framer Member Role: Primary Care Nurse Name: Kristie Haddad RN Position: [facility] RN Member Role: Primary Care Nurse Name: Venkat Hobson RN Position: [facility] Pole Framer Member Role: Primary Care Nurse Name: Balbir Peace MD Position: [facility] Physician - Behavioral Health Member Role: [employer] Consulting Physician Address: [address] [facility] [place] [address]- Telecom: Care Team Related Persons Name: CORY HONG Name: VICENTA BECKMAN Name: STEVEN CAMPBELL Name: CHARLY THORNTON Name: GAVIN THORNTON Insurance Providers Guarantor name: Izzy Money Plan Information #: 1 Payer: [facility] Payer Identifier: RIMA Member Number: [id number] Group Number: [id number] Subscriber Identifier: [id number] Relationship to Subscriber: self Coverage Type: Medicaid (Managed Care) Coverage Verification Date: NA Telecom: NA Address: NA
[2025-06-23 19:10] VITALS: BP 130/80; PULSE 80; RESP 16; TEMP 36.7; O2SAT 96; BMI 56.0
--- NOTE | 2025-06-23 19:37 | ED.PSYCH ---
HPI - Psych General Chief Complaint: Psychiatric Symptoms Stated Complaint: Crisis NABIL joyner Time Seen by Provider: 06/23/25 19:18 History of Present Illness HPI Narrative: Patient is a 40-year-old female presents today with having suicidal thoughts. Patient has had starts about jumping into traffic. No new medication. Patient from [facility]. Related Data Home Medications ?Medication ?Instructions ?Recorded ?Confirmed benztropine 0.5 mg tablet 0.5 mg PO BID 04/30/24 06/23/25 clonidine HCl 0.1 mg tablet 0.1 mg PO TID 04/30/24 06/23/25 omeprazole 20 mg capsule,delayed 20 mg PO Q OTHER DAY 04/30/24 06/23/25 release prazosin 5 mg capsule 15 mg PO BEDTIME 04/30/24 06/23/25 trazodone 100 mg tablet 200 mg PO BEDTIME insomnia 04/30/24 06/23/25 multivitamin 1 tab PO DAILY 05/17/24 06/23/25 zolpidem 10 mg tablet 10 mg PO BEDTIME insomnia 05/17/24 06/23/25 cholecalciferol (vitamin D3) 25 25 mcg PO DAILY 07/29/24 06/23/25 mcg (1,000 unit) tablet (Vitamin D3) haloperidol 5 mg tablet 5 mg PO TID 08/15/24 06/23/25 haloperidol decanoate 100 mg/mL 75 mg IM Q28D 08/15/24 06/23/25 intramuscular solution prazosin 1 mg capsule 1 mg PO BEDTIME 08/15/24 06/23/25 calcium 600 mg (as 1 tab PO BID 11/02/24 06/23/25 carbonate)-vitamin D3 10 mcg (400 unit) tablet fluticasone propionate 230 2 puff inhalation BID 11/02/24 06/23/25 mcg-salmeterol 21 mcg/actuation HFA inhaler (Advair HFA) cetirizine 10 mg tablet 10 mg PO DAILY 11/06/24 06/23/25 duloxetine 30 mg capsule,delayed 30 mg PO DAILY 11/06/24 06/23/25 release diphenhydramine HCl 50 mg capsule 100 mg PO BEDTIME insomnia 12/03/24 06/23/25 (Banophen) umeclidinium 62.5 mcg/actuation 1 inh inhalation DAILY 12/03/24 06/23/25 blister powder for inhalation (Incruse Ellipta) acetaminophen 500 mg tablet 1,000 mg PO Q6H PRN Pain 02/12/25 06/23/25 bacitracin zinc 500 unit/gram 1 appl topical BID PRN Wound Care 02/12/25 06/23/25 topical ointment fluticasone propionate 50 2 spray intranasal DAILY 02/12/25 06/23/25 mcg/actuation nasal spray,suspension ibuprofen 600 mg tablet 600 mg PO TID PRN Pain 02/12/25 06/23/25 polyethylene glycol 3350 17 17 g PO DAILY PRN Constipation 02/12/25 06/23/25 gram/dose oral powder (Miralax) sennosides 8.6 mg tablet (senna) 17.2 mg PO BEDTIME PRN No Bm in 3 02/12/25 06/23/25 Days/ Previous Rx's ?Medication ?Instructions ?Recorded lorazepam 1 mg tablet 1 mg PO TID PRN anxiety/agitation 05/22/24 #0 tabs albuterol sulfate 90 mcg/actuation 2 puff inhalation Q4-6H PRN 08/30/24 aerosol inhaler shortness of breath or wheezing #6.7 grams duloxetine 60 mg capsule,delayed 60 mg PO DAILY 30 days #30 caps 10/03/24 release hydroxyzine HCl 50 mg tablet 50 mg PO Q6H PRN mild anxiety 30 10/03/24 days #90 tabs lithium carbonate 450 mg 900 mg (2 x 450 mg) PO BEDTIME 30 10/17/24 tablet,extended release days #60 tabs baclofen 10 mg tablet 10 mg PO BID PRN muscle spasm #14 05/11/25 tabs Allergies Allergy/AdvReac Type Severity Reaction Status Date / Time carbamazepine (From TEGRETOL) AdvReac Mild Nausea and Verified 06/23/25 19:21 Vomiting topiramate (From Topamax) AdvReac Mild Nausea and Verified 06/23/25 19:21 Vomiting Review of Systems Review of Systems: Positive SI Yes all other systems are reviewed and are negative PMFSH Past Medical History Attestation statement: The following information was validated with the patient. Medical History Depression Schizoaffective disorder, depressive type Depression with suicidal ideation MDD (major depressive disorder), recurrent, severe, with psychosis Port-A-Cath in place History of electroconvulsive therapy COVID-19 COVID-19 Sprain of left foot Chronic post-traumatic stress disorder (PTSD) COPD (chronic obstructive pulmonary disease) Increased BMI GERD (gastroesophageal reflux disease) Recurrent major depression-severe Acute post-traumatic stress disorder Injury, self-inflicted Suicidal ideation Self-harming behavior Intentional self-harm Suicidal ideation Borderline personality disorder Schizoaffective disorder Adjustment disorder Asthma Depression Anxiety PTSD (post-traumatic stress disorder) Family History Family History Mother Brain cancer Other No family history of cardiac disease Social History Social History Household Members: Other Household Members Other:: [facility] [employer] Housing: Other Housing Other:: [facility] Do you presently have visiting nurse or other home services: No Alcohol intake: current Alcohol intake frequency: does not drink Patient Tobacco Use Status: Current everyday Tobacco user Tobacco use type: Cigarette Cigarette Packs Per Day: 0.5 Cigarettes Per Day: 10.0 Years Smoked: 20 e-Cigarette/Vaping Use: Never Used Second Hand Smoke Exposure: No Use of substances other than those prescribed or required for medical reasons: No Substance Use Type: Marijuana Do you have a plan to hurt others: No Plan service: No Current occupation: rt handed Sexual orientation: Straight/Heterosexual Physical Exam Exam: Exam: Appearance: Alert. Oriented X3. No acute distress. Eyes: Pupils equal, round and reactive to light. ENT: Pharynx normal. Neck: Normal inspection. Neck supple. No lymph nodes noted. No crepitus CVS: Normal heart rate and rhythm. Pulses normal. Normal S1 and S2 Respiratory: No respiratory distress. Breath sounds normal. No Wheezing. No rales Abdomen: Soft and nontender. No rigidity. No distention. good BS x4 Skin: Skin warm and dry. Normal skin color. Normal skin turgor. Extremities: No lower extremity edema. Neurovascular intact to all extremities. No Lacerations. No Rash Neuro: Oriented X 3. No motor deficit. No sensory deficit. Moving all extermities. No slurred speech. Cranial nerves grossly intact Vital Signs: Vital Signs: Last Vital Signs Temp 98.1 F 06/23/25 19:48 Pulse 75 06/23/25 19:48 Resp 18 06/23/25 19:48 BP 125/61 06/23/25 20:37 Pulse Ox 95 06/23/25 19:48 O2 Del Method Room Air 06/23/25 19:48 BMI result Body Mass Index 56.0 Medications Administered Generic Name Dose Route Start Last Admin Trade Name Freq PRN Reason Stop Dose Admin Benztropine Mesylate 0.5 mg 06/23/25 21:00 06/23/25 20:37 Benztropine Mesylate 0.5 Mg Tablet PO 0.5 mg BID SULEIMAN Administration Calcium Carbonate/Cholecalciferol 250 mg 06/23/25 21:00 06/23/25 20:37 Calcium + Vitamin D 250 Mg Tablet PO 250 mg BID SULEIMAN Administration Clonidine HCl 0.1 mg 06/23/25 21:00 06/23/25 20:37 Clonidine Hcl 0.1 Mg Tablet PO 0.1 mg TID SULEIMAN Administration Protocol Diphenhydramine HCl 100 mg 06/23/25 21:00 06/23/25 20:37 Diphenhydramine Hcl 25 Mg Capsule PO 100 mg BEDTIME SULEIMAN Administration Duloxetine HCl 30 mg 06/23/25 20:00 06/23/25 20:40 Duloxetine Hcl 30 Mg Capsule.Dr PO 30 mg DAILY SULEIMAN Administration Duloxetine HCl 60 mg 06/23/25 20:00 06/23/25 20:38 Duloxetine Hcl 60 Mg Capsule.Dr PO 60 mg DAILY SULEIMAN Administration Haloperidol 5 mg 06/23/25 21:00 06/23/25 20:37 Haloperidol 5 Mg Tablet PO 5 mg TID SULEIMAN Administration [place] Carbonate 900 mg 06/23/25 21:00 06/23/25 20:37 [place] Carbonate Er 450 Mg Tablet.Er PO 900 mg BEDTIME SULEIMAN Administration Loratadine 10 mg 06/23/25 20:00 06/23/25 20:37 Loratadine 10 Mg Tablet PO 10 mg DAILY SULEIMAN Administration Lorazepam 1 mg 06/23/25 19:39 06/23/25 20:37 Lorazepam 1 Mg Tablet PO 1 mg Q6H PRN Administration Anxiety Multivitamins/Vitamin C 1 tab 06/23/25 20:00 06/23/25 20:37 Multivitamin Tablet PO 1 tab DAILY SULEIMAN Administration Prazosin HCl 1 mg 06/23/25 21:00 06/23/25 20:36 Prazosin Hcl 1 Mg Capsule PO 1 mg BEDTIME SULEIMAN Administration Protocol Prazosin HCl 15 mg 06/23/25 21:00 06/23/25 20:46 Prazosin Hcl 5 Mg Capsule PO Not Given BEDTIME SULEIMAN Protocol Trazodone HCl 200 mg 06/23/25 21:00 06/23/25 20:38 Trazodone Hcl 100 Mg Tablet PO 200 mg BEDTIME SULEIMAN Administration Vitamin D 25 mcg 06/23/25 20:00 06/23/25 20:38 Cholecalciferol (Vitamin D3) 25 Mcg Tablet PO 25 mcg DAILY SULEIMAN Administration Zolpidem Tartrate 10 mg 06/23/25 21:00 06/23/25 20:36 Zolpidem Tartrate 5 Mg Tablet PO 10 mg BEDTIME SULEIMAN Administration Medical Decision Making Medical Decision Making MDM Narrative: Patient is seen by care team. Agrees to go home she is patient is safe no longer suicidal. In stable condition. Differential Diagnosis Differential Diagnoses: The differential diagnosis associated with the presentation includes Anxiety depression Admission/Observation Consideration of admission/observation: Escalation of care including admission/observation considered Lab Data [facility] Lab Attestation statement: I reviewed the patient's lab results. 06/23/25 20:00 06/23/25 20:00 Labs: Lab Results 06/23/25 Range/Units 20:00 WBC 7.1 (4.8-10.8) X10*3/uL RBC 3.96 L (4.20-5.50) X10*6/uL Hgb 11.7 L (12.0-16.0) g/dl Hct 36.2 L (37.0-47.0) % MCV 91.4 (80.0-98.0) fL MCH 29.5 (27.0-33.0) pg MCHC 32.3 (31.0-35.0) g/dl RDW 13.6 (11.0-16.0) % Plt Count 232 (160-400) X10*3/uL MPV 11.4 (9.4-12.3) fL Immature Gran % (Auto) 0.3 (0.0-0.4) % Neut % (Auto) 72.6 (45-73) % Lymph % (Auto) 20.8 (20-40) % Payne % (Auto) 4.8 (2-11) % Eos % (Auto) 1.1 (0-4) % Baso % (Auto) 0.4 (0-2) % Lymph # (Auto) 1.5 (1.2-4.9) X10*3/uL Payne # (Auto) 0.3 (0.1-1.2) X10*3/uL Eos # (Auto) 0.1 (0.0-0.4) X10*3/uL Baso # (Auto) 0.0 (0.0-0.2) X10*3/uL Abs Immat Gran (auto) 0.02 (0.00-0.03) X10*3/uL Absolute Neuts (auto) 5.2 (2.0-8.3) x10*3/uL Absolute Nucleated RBC 0.000 (0.0-0.012) X10*3/uL Nucleated RBC % (auto) 0.0 (0.0-0.2) /100WBC Sodium 138 (135-145) mmol/L Potassium 4.0 (3.3-5.1) mmol/L Chloride 106 (96-108) mmol/L Carbon Dioxide 24 (22-29) mmol/L Anion Gap 12 (12-20) BUN 6 L (9-16) mg/dL Creatinine 0.94 (0.5-1.4) mg/dL Estim Creat Clear Calc 100.6 Estimated GFR > 60 Random Glucose 134 H (60-115) mg/dL Calcium 9.4 D (8.4-10.2) mg/dL Total Bilirubin 0.2 (0.0-1.0) mg/dL AST 13 (5-31) U/L ALT 11 (0-31) U/L Alkaline Phosphatase 56 (39-117) U/L Total Protein 6.3 L (6.5-8.0) g/dL Albumin 4.1 (3.5-5.0) g/dL Salicylates < 5.0 L (15-30) mg/dL Acetaminophen < 3 (<30) mcg/mL Ethyl Alcohol < 10 mg/dL External Record Review External record reviewed: Inpatient record Chronic Conditions depression PTSD Social Determinants Patient?s care significantly limited by Social Determinants of Health including: Problems related to primary support group Discharge Plan Discharge Clinical Impression: Depression Patient Disposition: Home, Self-Care Instructions: Depression (ED) Prescriptions: No Action clonidine HCl 0.1 mg tablet 0.1 mg PO TID Rx Instructions: takes at 0800, 1400 and 2000 benztropine 0.5 mg tablet 0.5 mg PO BID prazosin 5 mg capsule 15 mg PO BEDTIME trazodone 100 mg tablet 200 mg PO BEDTIME omeprazole 20 mg capsule,delayed release(DR/EC) 20 mg PO Q OTHER DAY cholecalciferol (vitamin D3) [Vitamin D3] 25 mcg (1,000 unit) tablet 25 mcg PO DAILY haloperidol 5 mg tablet 5 mg PO TID prazosin 1 mg capsule 1 mg PO BEDTIME haloperidol decanoate 100 mg/mL solution 75 mg IM Q28D albuterol sulfate 90 mcg/actuation HFA aerosol inhaler 2 puff inhalation Q4-6H PRN (Reason: shortness of breath or wheezing) Qty: 6.7 0RF hydroxyzine HCl 50 mg Tablet 50 mg PO Q6H PRN (Reason: mild anxiety) 30 Days Qty: 90 0RF duloxetine 60 mg capsule,delayed release(DR/EC) 60 mg PO DAILY 30 Days Qty: 30 0RF Rx Instructions: take with 30mg capsule diphenhydramine HCl [Banophen] 50 mg capsule 100 mg PO BEDTIME Incruse Ellipta 62.5 mcg/actuation blister with device 1 inh INHALATION DAILY sennosides [senna] 8.6 mg Tablet 17.2 mg PO BEDTIME PRN (Reason: No Bm in 3 Days/) acetaminophen 500 mg Tablet 1,000 mg PO Q6H PRN (Reason: Pain) ibuprofen 600 mg Tablet 600 mg PO TID PRN (Reason: Pain) polyethylene glycol 3350 [Miralax] 17 gram/dose Powder 17 g PO DAILY PRN (Reason: Constipation) fluticasone propionate 50 mcg/actuation spray,suspension 2 spray intranasal DAILY bacitracin zinc 500 unit/gram Ointment 1 appl TOPICAL BID PRN (Reason: Wound Care) zolpidem 10 mg tablet 10 mg PO BEDTIME multivitamin Tablet 1 tab PO DAILY lorazepam 1 mg Tablet 1 mg PO TID PRN (Reason: anxiety/agitation) Qty: 0 0RF lithium carbonate 450 mg Tablet Extended Release 900 mg PO BEDTIME 30 Days Qty: 60 0RF fluticasone propion-salmeterol [Advair HFA] 230-21 mcg/actuation HFA aerosol inhaler 2 puff INHALATION BID calcium carbonate-vitamin D3 600 mg-10 mcg (400 unit) tablet 1 tab PO BID cetirizine 10 mg tablet 10 mg PO DAILY duloxetine 30 mg capsule,delayed release(DR/EC) 30 mg PO DAILY baclofen 10 mg tablet 10 mg PO BID PRN (Reason: muscle spasm) Qty: 14 0RF Referrals: Your doctor [Other] Referral Note: Please follow-up as per care team Interventions: [place]-Suicide Risk Severity Scale Last Done: 06/23/25 19:21 Print Language: Moroccan
[2025-06-23 19:48] VITALS: BP 125/61; PULSE 75; RESP 18; TEMP 36.7; O2SAT 95
--- NOTE | 2025-06-23 19:51 | PC.NURSE ---
over hauler helper completed in POD with Security present. Changed into appropriate attire and belongings secured in locker #5. Presents as calm and cooperative. Endorsed +SI with plan to jump in front of a car. Denies specific trigger/precipitating factor and states It startled me that I'm feeling this way. Denies HI. Endorsed command +AH of negative comments such as Go kill yourself. and You're not good enough. Endorsed +VH of things and reports she often looks out her window to see them. Contracts for safety and agreeable to alert staff if feeling unsafe. Reports she's been med compliant with all home medications. Med req completed per patient. Denies ETOH/substance use. Endorsed 5/10 chronic pain to back and L knee, controlled well with Motrin. Allergies confirmed. Diet order placed. 15 minute check initiated. Will continue to monitor for safety.
[2025-06-23 20:18] LABS: MANUAL DIFF FLAG NO
[2025-06-23 20:27] LABS: Hematocrit 36.2 % (37.0-47.0); Hemoglobin 11.7 g/dl (12.0-16.0); Imm Gran Abs Auto 0.02 X10*3/uL (0.00-0.03); Imm Gran Pct Auto 0.3 % (0.0-0.4); Lymphocytes Absolute Auto 1.5 X10*3/uL (1.2-4.9); Mean Corpuscular HGB Conc 32.3 g/dl (31.0-35.0); Mean Corpuscular Hemoglobin 29.5 pg (27.0-33.0); Mean Corpuscular Volume 91.4 fL (80.0-98.0); NRBC Abs Auto 0.000 X10*3/uL (0.0-0.012); NRBC Pct Auto 0.0 /100WBC (0.0-0.2); Platelet Count 232 X10*3/uL (160-400); Red Blood Count 3.96 X10*6/uL (4.20-5.50); White Blood Count 7.1 X10*3/uL (4.8-10.8)
[2025-06-23 20:36] VITALS: BP 125/61
[2025-06-23 20:37] VITALS: BP 125/61
[2025-06-23] MEDS: Calcium + Vitamin D 250 MG TABLET PO (20:37)
[2025-06-23 20:51] LABS: Acetaminophen LAB < 3 mcg/mL (<30); Alanine Aminotransferase 11 U/L (0-31); Albumin Level 4.1 g/dL (3.5-5.0); Alkaline Phosphatase 56 U/L (39-117); Anion Gap 12 (12-20); Aspartate Amino Transferase 13 U/L (5-31); Blood Urea Nitrogen 6 mg/dL (9-16); Calcium 9.4 mg/dL (8.4-10.2); Carbon Dioxide 24 mmol/L (22-29); Chloride 106 mmol/L (96-108); Creatinine Clr Calc Pharmacy 100.6; Estimated Glomerular Filt Rate > 60; Potassium 4.0 mmol/L (3.3-5.1); Salicylate < 5.0 mg/dL (15-30); Sodium 138 mmol/L (135-145); Total Protein 6.3 g/dL (6.5-8.0)
[2025-06-23 20:59] VITALS: BP 104/67; PULSE 88; RESP 18; TEMP 36.3; O2SAT 98
--- OUTSIDE RECORDS SUMMARY | 2025-06-23 21:10 | XMS_ITS | Clinical Summary ---
Author Organization [facility] Address [address] [place] [phone] Phone Care Team Providers Care Lathe Spotter Name Role Phone Carroll Gaviria MD Primary [...] topic Medical Devices Not on file Insurance [employer] [facility] [place] [employer] [place] [facility] [place] [facility] [employer] [facility] [place] Member Subscriber Plan / Payer (Ef fective 2020-Present) Name:Stella Capps Relation to Subscriber:Self Name:Stella Capps Payer ID:[id number] Group ID:Not on file Type:Medicaid Address: [place] [address] [place] [address] [facility] [place] [facility] [employer] [facility] [place] [address] [address] [facility] [place] [facility] Care Teams Lathe Spotter Relationship Specialty Start Date End Date Carroll Gaviria MD [address] [place] [id number] PCP - General Internal Medicine 12/20/23 Additional Source Comments The information contained in this document represents components of the legal health record. It is not the complete legal health record[facility]
--- OUTSIDE RECORDS SUMMARY | 2025-06-23 21:10 | XMS_ITS | Patient Health Record ---
Author Organization [employer] [facility] Address [address] [facility] [place] [address] Care Team Providers Care Material Assistant Name Role Phone COLETTE BRADY NP Primary Care Provider Adele Meier Unavailable [phone] Reason For Referral No Information Encounters Encounter Location Date Provider Diagnosis [facility] [employer] [facility] [address] [facility] [address] [place] [address] 03/09/2025 Adele Fairchild Plan Of Treatment No Information Insurance Providers Payer Name Payer Address Payer Phone Subscriber Number Group Number Insured Name Patient Relationship to Insured Coverage Start Date Coverage End Date [facility] [address] [place] [id number] [phone] MELISA THORNTON Self - patient is the insured
== END 2025-06-23 21:10 | disposition home or self-care (01) ==
LOC: HO.ED 21:06
PROVIDERS: Emergency Provider Emergency Medicine Emergency Medical Services
DX: F33.9 Major depressive disorder, recurrent, unspecified (principal); F43.12 Post-traumatic stress disorder, chronic; J44.9 Chronic obstructive pulmonary disease, unspecified
CPT/HCPCS: 36415; 80053; 80143; 80179; 80307; 85025; 99285; S9485

== ENCOUNTER 2025-06-28 16:11 | Emergency (ER) | payer OTHER, SELFPAY ==
--- OUTSIDE RECORDS SUMMARY | 2025-03-09 04:40 | XMS_ITS ---
Author Organization [facility] Address [address] [address] Care Team Providers Care Formula Clerk Name Role Phone JOSE ANTONIO MENON, COLETTE Primary Care Provider Adele Meier Unavailable [phone] REASON FOR VISIT Annual DEER FARMER Physical Encounters Encounter Location Date Provider Diagnosis [facility] [address] [address] 03/09/2025 Adele Fairchild Plan Of Treatment No Information Progress Notes * MELISA THORNTONDOB:1985 (40 yo F)Acc No.[id number]:03/09/2025 Progress Note Patient: MELISA VIEIRA Appointment Provider: Jeffery Fairchild M.D. :1985 A ge:39 Y S ex:Female Date:03/09/2025 Address:[address] [place], [place] [id number] Pcp:COLETTE BRADY NP Subjective: * Chief Complaints: * 1 . Annual DEER FARMER Physical. * Medical History: Objective: * Vitals: Assessment: Plan: * Treatment: * Images: Billing Information: * Visit Code: * Procedure Codes: * Electronic signature of Leon Fairchild MD on 06/28/2025 at 06:54 PM EST Sign off status: Pending * Appointment Provider: Jeffery Fairchild M.D. Date: 0 03/09/2025 Generated for Lj marin/Jessika/Nickolasitting on: 08/28/2024 06:54 PM EST
--- OUTSIDE RECORDS SUMMARY | 2025-06-27 23:59 | XMS_ITS | Continuity of Care Document ---
Author Organization [facility] Address [address] [place] [address]- Support Name Relationship Address Phone THORNTON, CRYSTAL [...] Other Unknown Unavailable Care Team Providers Care Therapist Rrt Name Role Phone Hafsa Holcomb NP Primary Care Physician [id number] Date(s): 05/28/25 - 06/27/25 [facility] [address] [place], [place] [address] Encounter Type: Triage Allergies, Adverse Reactions, Alerts Substance Criticality Severity Reaction Reaction Severity Status topiramate Nausea and vomiting Active Tegretol Active Immunizations Given and Recorded Vaccine Date Status Refusal Reason tetanus/diphtheria/pertussis, acel(Tdap) 09/27/23 Given tetanus/diphtheria/pertussis, acel(Tdap) 11/02/09 Given pneumococcal 23-valent vaccine 05/11/09 Given Diphth-Tetanus Toxoids Adsorbed(oldterm) 04/15/05 Given Medications Advair HFA 230 mcg / 21 mcg 2 puffs, Inhalation, 2 times a day, # 12 Gm, 11 Refills, Maintenance, 06/29/24 1:29:00 PM EST, Aerosol, [facility] - [place], [place], Partial fill upon patient request if [...] 1 Refills, Maintenance, 03/08/25 4:02:00 PM EDT, [facility], 14, Apply twice daily to wounds, 150, cm, 02/28/25 12:45:00 EDT, Height, 87, [...] Refills, Maintenance, 03/26/25 12:49:00 PM EDT, [facility], [facility], Partial fill upon patient request if [...] 1 Refills, Maintenance, 04/18/25 10:40:00 AM EDT, [facility], 150, cm, 04/18/25 10:32:00 EDT, Height, [...] 3 Refills, Maintenance, 03/26/25 12:57:00 PM EDT, [facility], Partial fill upon patient request if [...] 6 Refills, Maintenance, 05/11/24 3:03:00 PM EDT, Gel, [facility] [place], [place], Partial fill upon patient request if [...] Soft Stop, 05/28/25 10:28:00 AM EDT, Tablet, [facility], Partial fill upon patient request if the [...] Refills, Maintenance, 03/26/25 10:42:00 AM EDT, Nasal [place], [facility], Partial fill upon patient request if [...] Refills, Maintenance, 06/29/24 1:29:00 PM EST, [place], [facility] - [place], [place], Partial fill upon patient request if [...] EDT, 03/26/25 12:56:00 PM EDT, REC [place], [facility], Partial fill upon patient request if [...] Refills, Maintenance, 05/08/25 10:22:00 AM EDT, Tablet, [facility], Partial fill upon patient request if [...] Maintenance, 03/26/25 12:49:00 PM EDT, EC Tablet, [facility], Partial fill upon patient request if the prescription is for a schedule II opioid drug., 150, cm, 02/28/25 12:45:00 EDT, Height, 87, kg, 02/05/25 14:06:00 EDT, Dry Weight Start Date: 03/26/25 Stop Date: 03/21/26 Status: Ordered Medication Dispense Status: Completed Quantity: 45.0 Unit: tablet Total Allowed Fills: 4 Fills Dispensed: 0 omeprazole 20 mg oral enteric coated capsule 15 each, 0 Refill(s), TAKE 1 CAPSULE BY MOUTH every other DAY, 0 Refills, 06/22/25 12:01:00 PM EST, Partial fill upon patient request if the prescription is for a schedule II opioid drug. Start Date: 06/22/25 Status: Ordered Medication Dispense Status: Completed Total Allowed Fills: 1 Fills Dispensed: 0 ondansetron 4 mg oral tablet 1 tablet = 4 mg, By Mouth, Every 8 hours, PRN Nausea, # 15 tablet, 0 Refills, Acute 05/17/26 12:58:00 PM EDT, 05/17/25 12:59:00 PM EDT, Tablet, [facility], Partial fill upon patient request if theprescription [...] 0 Refills, Maintenance, 02/05/25 2:22:00 PM EDT, [place], [facility] - [place], [place], Partial fill upon patient request if the [...] Refills, Maintenance, 04/18/25 10:39:00 AM EDT, Aerosol, [facility], Partial fill upon patient request if [...] Total Allowed Fills: 1 Fills Dispensed: 0 Problem List Condition Confirmation Course Effective Dates [...] syndrome Confirmed Active Urinary incontinence Confirmed Active Patient Care team information Care Team Personnel Name: Lynnette Veloz RN Position: [facility] Rad RN Member Role: Primary Care Nurse Name: Shaylee Schilling RN Position: [facility] RN Member Role: Primary Care Nurse Name: Arlen Charles RN Position: [facility] RN Member Role: Primary Care Nurse Name: Sofía Reno RN Position: [facility] IVANNA Nurse Member Role: Primary Care Nurse Name: Arlen Villarreal RN Position: [facility] IONA RN W/OE and Tasks Member Role: Primary Care Nurse Name: Hafsa Holcomb NP Position: [facility] PCO Associate Professional Member Role: PCP Address: [address] [place] [address], [address] [place] [address]- [place] Telecom: Name: Felicia Shaw RN Position: [facility] IONA RN W/OE and Tasks Member Role: Primary Care Nurse Name: Rosio Medrano RN Position: [facility] Nurse Member Role: Primary Care Nurse Name: Paige Turner RN Position: [facility] Hospital Conference Interpreter Member Role: Primary Care Nurse Name: Kristie Haddad RN Position: [facility] RN Member Role: Primary Care Nurse Name: Venkat Hobson RN Position: [facility] Conference Interpreter Member Role: Primary Care Nurse Name: Balbir Peace MD Position: [facility] Physician - Behavioral Health Member Role: Lifetime Consulting Physician Address: [address] [place] [address] - Child Outpatient [address] Telecom: Care Team Related Persons Name: CORY HONG Name: VICENTA BCEKMAN Name: STEVEN CAMPBELL Name: CHARLY THORNTON Name: GAIVN THORNTON Insurance Providers Guarantor name: Mobile-XL Plan Information #: 1 Payer: [facility] Payer Identifier: RIMA Member Number: [id number] Group Number: [id number] Subscriber Identifier: RIMA Relationship to Subscriber: self Coverage Type: Medicaid (Managed Care) Coverage Verification Date: NA Telecom: NA Address:
--- OUTSIDE RECORDS SUMMARY | 2025-06-27 23:59 | XMS_ITS | Continuity of Care Document ---
Author Organization [facility] Address [address] [place] [address]- Support Name Relationship Address Phone THORNTON, CRYSTAL [...] Other Unknown Unavailable Care Team Providers Care Calcine Furnace Loader Name Role Phone Hafsa Holcomb NP Primary Care Physician En[facility] Date(s): 05/28/25 - 06/27/25 [facility] [address] [place], [place] [address] Encounter Type: Triage Allergies, Adverse Reactions, Alerts [...] Refills, Maintenance, 06/29/24 1:29:00 PM EST, Aerosol, [facility] - [place], [place], Partial fill upon patient request if [...] 1 Refills, Maintenance, 03/08/25 4:02:00 PM EDT, [facility], 14, Apply twice daily to [...] Refills, Maintenance, 03/26/25 12:49:00 PM EDT, Tablet, [facility], Partial fill upon patient request if [...] 1 Refills, Maintenance, 04/18/25 10:40:00 AM EDT, [facility], 150, cm, 04/18/25 10:32:00 EDT, Height, [...] 3 Refills, Maintenance, 03/26/25 12:57:00 PM EDT, [facility], Partial fill upon patient request if [...] Refills, Maintenance, 05/11/24 3:03:00 PM EDT, Gel, [facility] [place], [place], Partial fill upon patient request if [...] Soft Stop, 05/28/25 10:28:00 AM EDT, Tablet, [facility], Partial fill upon patient request if the [...] Refills, Maintenance, 03/26/25 10:42:00 AM EDT, Nasal [place], [facility], Partial fill upon patient request [...] Refills, Maintenance, 06/29/24 1:29:00 PM EST, [place], [facility] - [place], [place], Partial fill upon patient request if [...] EDT, 03/26/25 12:56:00 PM EDT, REC [place], [facility], Partial fill upon patient request if [...] Refills, Maintenance, 05/08/25 10:22:00 AM EDT, Tablet, [facility], Partial fill upon patient request if [...] Maintenance, 03/26/25 12:49:00 PM EDT, EC Tablet, [facility], Partial fill upon patient request if [...] PM EDT, 05/17/25 12:59:00 PM EDT, Tablet, [facility], Partial fill upon patient request if theprescription [...] 0 Refills, Maintenance, 02/05/25 2:22:00 PM EDT, [place], [facility] - [place], [place], Partial fill upon patient request if [...] Refills, Maintenance, 04/18/25 10:39:00 AM EDT, Aerosol, [facility], Partial fill upon patient request [...] Team Personnel Name: Lynnette Veloz RN Position: [facility] Reji RN Member Role: Primary Care Nurse Name: Shaylee Schilling RN Position: [facility] RN Member Role: Primary Care Nurse Name: Arlen Charles RN Position: [facility] RN Member Role: Primary Care Nurse Name: Sofía Reno RN Position: [facility] IVANNA Nurse Member Role: Primary Care Nurse Name: Arlen Villarreal RN Position: [facility] IONA RN W/OE and Tasks Member Role: Primary Care Nurse Name: Hafsa Holcomb NP Position: [facility] PCO Associate Professional Member Role: PCP Address: [address] [place] [address], [address] [place] [address]- [place] Telecom: Name: Felicia Shaw RN Position: [facility] IONA RN W/OE and Tasks Member Role: Primary Care Nurse Name: Rosio Medrano RN Position: [facility] AMB Nurse Member Role: Primary Care Nurse Name: Paige Turner RN Position: [facility] Hospital Grants Director Member Role: Primary Care Nurse Name: Kristie Haddad RN Position: [facility] RN Member Role: Primary Care Nurse Name: Venkat Hobson RN Position: [facility] Grants Director Member Role: Primary Care Nurse Name: Balbir Peace MD Position: [facility] Physician - Behavioral Health Member Role: Lifetime Consulting Physician Address: [address] [place] [address] - Child Outpatient [address] Telecom: Care Team Related Persons Name: CORY HONG Name: VICENTA BECKMAN Name: STEVEN CAMPBELL Name: CHARLY THORNTON Name: GAVIN THORNTON Insurance Providers Guarantor name: [address] Plan Information #: 1 Payer: [facility] Payer Identifier: RIMA Member Number: [id number] Group Number: [id number] Subscriber Identifier: RIMA Relationship to Subscriber: self Coverage Type: Medicaid (Managed Care) Coverage Verification Date: NA Telecom: NA Address:
[2025-06-28 16:21] VITALS: BP 114/86; PULSE 72; RESP 16; O2SAT 98; BMI 43.0
[2025-06-28 16:27] VITALS: BP 98/62; PULSE 57; RESP 16; TEMP 36.3; O2SAT 98
[2025-06-28 16:37] VITALS: RESP 14
[2025-06-28 16:56] LABS: MANUAL DIFF FLAG NO
[2025-06-28 17:07] LABS: Hematocrit 37.9 % (37.0-47.0); Hemoglobin 12.6 g/dl (12.0-16.0); Imm Gran Abs Auto 0.02 X10*3/uL (0.00-0.03); Imm Gran Pct Auto 0.3 % (0.0-0.4); Lymphocytes Absolute Auto 1.0 X10*3/uL (1.2-4.9); Mean Corpuscular HGB Conc 33.2 g/dl (31.0-35.0); Mean Corpuscular Hemoglobin 29.8 pg (27.0-33.0); Mean Corpuscular Volume 89.6 fL (80.0-98.0); NRBC Abs Auto 0.000 X10*3/uL (0.0-0.012); NRBC Pct Auto 0.0 /100WBC (0.0-0.2); Platelet Count 257 X10*3/uL (160-400); Red Blood Count 4.23 X10*6/uL (4.20-5.50); White Blood Count 7.1 X10*3/uL (4.8-10.8)
[2025-06-28 17:12] LABS: Cannabinoid Screen Urine POSITIVE (Not Detect)
[2025-06-28 17:15] LABS: Appearance Urine Clear; Glucose Urine UA Negative (Negative); PH 7.0 (5.0-9.0); Specific Gravity - Urine 1.010 (1.005-1.025)
[2025-06-28 17:19] LABS: Alanine Aminotransferase 16 U/L (0-31); Albumin Level 4.6 g/dL (3.5-5.0); Alkaline Phosphatase 57 U/L (39-117); Anion Gap 11 (12-20); Aspartate Amino Transferase 16 U/L (5-31); Blood Urea Nitrogen 7 mg/dL (9-16); Calcium 9.9 mg/dL (8.4-10.2); Carbon Dioxide 27 mmol/L (22-29); Chloride 103 mmol/L (96-108); Creatinine Clr Calc Pharmacy 94.3; Estimated Glomerular Filt Rate > 60; Potassium 4.5 mmol/L (3.3-5.1); Sodium 136 mmol/L (135-145); Total Protein 7.1 g/dL (6.5-8.0)
[2025-06-28 17:20] LABS: UPreg QC Valid YES
--- OUTSIDE RECORDS SUMMARY | 2025-06-28 18:54 | XMS_ITS | Clinical Summary ---
Author Organization [facility] Address [address] [place] [address] Phone Care Team Providers Care Cap Coverer Name Role Phone Carroll Gaviria MD Primary [...] Additional history exists HIB VACCINES Completed 11/21/1988 IPV VACCINES Completed 08/03/1991, 04/1988, 03/21/1987, Additional history exists HEPATITIS A VACCINES Aged Out No long er eligible based on patient's age to complete this topic MENINGOCOCCAL VACCINES (ACWY) Aged Out No longer eligible based on patient's age to complete this topic MENINGOCOCCAL VACCINES (B) Aged Out N o longer eligible based on patient's age to complete this topic Medical Devices Not on file Insurance [id number] [address] [place], [place] [address] [employer] [place] [employer] [place] [facility] [employer] [place] [employer] [place] M[place] [id number] [employer] [facility] [place] [facility] [id number] Care Teams Cap Coverer Relationship Specialty Start Date End Date Carroll Gaviria MD [address] [place] [id number] PCP - General Internal Medicine 12/20/23 Additional Source Comments The information contained in this document represents components of the legal health record. It is not the complete legal health record.[facility]
--- OUTSIDE RECORDS SUMMARY | 2025-06-28 18:54 | XMS_ITS | Patient Health Record ---
Author Organization [employer] [facility] Address [address] [facility] [address] [place] [address] Care Team Providers Care Newspaper Copy Editor Name Role Phone COLETTE BRADY NP Primary Care Provider Adele Meier Unavailable [phone] Reason For Referral No Information Encounters Encounter Location Date Provider Diagnosis [facility] [employer] [facility] [address] [facility] [address] [place] [address] 03/09/2025 Adele Fairchild Plan Of Treatment No Information Insurance Providers Payer Name Payer Address Payer Phone Subscriber Number Group Number Insured Name Patient Relationship to Insured Coverage Start Date Coverage End Date [facility] [address] [place] [id number] [phone] MELISA THORNTON Self - patient is the insured
--- NOTE | 2025-06-28 19:14 | ED.GENADULT ---
HPI - General Adult General Chief complaint: Psychiatric Symptoms Stated complaint: SI PER EMS Time Seen by Provider: 06/28/25 16:48 Source: patient, RN notes reviewed and old records reviewed Mode of arrival: EMS Limitations: no limitations History of Present Illness ED Provider: Sindy KUMAR narrative: 40-year-old female with a past medical history significant for PTSD, major depressive disorder, mood disorder, COPD, asthma, obesity, GERD presents for evaluation of depression with suicidal thoughts. She reports over last couple of days she has had increasing auditory hallucinations and commands telling her to kill herself She reports that she is not act on those thoughts. The patient is well known to this emergency department. She reports that she has been compliant with all her medications pain She denies any somatic complaint Related Data Home Medications ?Medication ?Instructions ?Recorded ?Confirmed benztropine 0.5 mg tablet 0.5 mg PO BID 04/30/24 06/28/25 clonidine HCl 0.1 mg tablet 0.1 mg PO TID 04/30/24 06/28/25 omeprazole 20 mg capsule,delayed 20 mg PO Q OTHER DAY 04/30/24 06/28/25 release prazosin 5 mg capsule 15 mg PO BEDTIME 04/30/24 06/28/25 trazodone 100 mg tablet 200 mg PO BEDTIME insomnia 04/30/24 06/28/25 multivitamin 1 tab PO DAILY 05/17/24 06/28/25 zolpidem 10 mg tablet 10 mg PO BEDTIME insomnia 05/17/24 06/28/25 cholecalciferol (vitamin D3) 25 25 mcg PO DAILY 07/29/24 06/28/25 mcg (1,000 unit) tablet (Vitamin D3) haloperidol 5 mg tablet 5 mg PO TID 08/15/24 06/28/25 haloperidol decanoate 100 mg/mL 75 mg IM Q28D 08/15/24 06/23/25 intramuscular solution prazosin 1 mg capsule 1 mg PO BEDTIME 08/15/24 06/28/25 calcium 600 mg (as 1 tab PO BID 11/02/24 06/28/25 carbonate)-vitamin D3 10 mcg (400 unit) tablet fluticasone propionate 230 2 puff inhalation BID 11/02/24 06/28/25 mcg-salmeterol 21 mcg/actuation HFA inhaler (Advair HFA) cetirizine 10 mg tablet 10 mg PO DAILY 11/06/24 06/28/25 duloxetine 30 mg capsule,delayed 30 mg PO DAILY 11/06/24 06/28/25 release diphenhydramine HCl 50 mg capsule 100 mg PO BEDTIME insomnia 12/03/24 06/28/25 (Banophen) umeclidinium 62.5 mcg/actuation 1 inh inhalation DAILY 12/03/24 06/28/25 blister powder for inhalation (Incruse Ellipta) acetaminophen 500 mg tablet 500 mg PO Q6H PRN Pain 02/12/25 06/28/25 fluticasone propionate 50 2 spray intranasal DAILY 02/12/25 06/28/25 mcg/actuation nasal spray,suspension ibuprofen 600 mg tablet 600 mg PO TID PRN Pain 02/12/25 06/28/25 polyethylene glycol 3350 17 17 g PO DAILY PRN Constipation 02/12/25 06/28/25 gram/dose oral powder (Miralax) hydroxyzine HCl 50 mg tablet 50 mg PO DAILY PRN mild anxiety 06/28/25 06/28/25 lorazepam 1 mg tablet 1 mg PO TID anxiety/agitation 06/28/25 06/28/25 Previous Rx's ?Medication ?Instructions ?Recorded albuterol sulfate 90 mcg/actuation 2 puff inhalation Q4-6H PRN 08/30/24 aerosol inhaler shortness of breath or wheezing #6.7 grams duloxetine 60 mg capsule,delayed 60 mg PO DAILY 30 days #30 caps 10/03/24 release lithium carbonate 450 mg 900 mg (2 x 450 mg) PO BEDTIME 30 10/17/24 tablet,extended release days #60 tabs Allergies Allergy/AdvReac Type Severity Reaction Status Date / Time carbamazepine (From TEGRETOL) AdvReac Mild Nausea and Verified 06/28/25 16:25 Vomiting topiramate (From Topamax) AdvReac Mild Nausea and Verified 06/28/25 16:25 Vomiting Review of Systems Constitutional: Constitutional: Denies body ache(s), Denies chills, Denies fever(s) and Denies headache(s) Eyes: Eyes: Denies blurry vision ENT: Denies vertigo, Denies dizziness, Denies dry mouth and Denies headache(s) Cardiovascular: Cardiovascular: Denies chest pain Gastrointestinal: Gastrointestinal: Denies abdominal pain, Denies nausea and Denies vomiting Musculoskeletal: Musculoskeletal: Denies back pain Integumentary/Breasts: Skin/Breast: Denies rash Neurologic: Denies vertigo, Denies dizziness and Denies headache(s) Psychiatric: Psychiatric: Reports depression, Reports auditory hallucinations and Reports suicidal ideation [facility] Past Medical History Medical History Depression Schizoaffective disorder, depressive type Depression with suicidal ideation MDD (major depressive disorder), recurrent, severe, with psychosis Port-A-Cath in place History of electroconvulsive therapy COVID-19 COVID-19 Sprain of left foot Chronic post-traumatic stress disorder (PTSD) COPD (chronic obstructive pulmonary disease) Increased BMI GERD (gastroesophageal reflux disease) Recurrent major depression-severe Acute post-traumatic stress disorder Injury, self-inflicted Suicidal ideation Self-harming behavior Intentional self-harm Suicidal ideation Borderline personality disorder Schizoaffective disorder Adjustment disorder Asthma Depression Anxiety PTSD (post-traumatic stress disorder) Family History Family History Mother Brain cancer Other No family history of cardiac disease Social History Social History Household Members: Other Household Members Other:: [employer] Housing: Other Housing Other:: [employer] Do you presently have visiting nurse or other home services: No Alcohol intake: current Alcohol intake frequency: does not drink Patient Tobacco Use Status: Current everyday Tobacco user Tobacco use type: Cigarette Cigarette Packs Per Day: 0.5 Cigarettes Per Day: 10.0 Years Smoked: 20 Smoked in Last 30 Days: Yes e-Cigarette/Vaping Use: Never Used Second Hand Smoke Exposure: No Use of substances other than those prescribed or required for medical reasons: No Substance Use Type: Marijuana Advance Directives: No Advance Directives Information Provided: No Patient : No service: No Current occupation: rt handed Sexual orientation: Straight/Heterosexual Physical Exam ED Vital Signs: Vital Signs - 24 hr 06/28/25 16:21 06/28/25 16:27 06/28/25 16:37 Temperature 97.3 F Pulse Rate 57 Respiratory Rate 16 16 14 Blood Pressure 98/62 Pulse Oximetry 98 Oxygen Delivery Method Room Air 06/28/25 19:32 Temperature 98.2 F Pulse Rate 88 Respiratory Rate 17 Blood Pressure 112/65 Pulse Oximetry 99 Oxygen Delivery Method Room Air BMI result Body Mass Index 43.0 Const General: healthy appearing, comfortable, no acute distress, alert and awake Nutritional Appearance: well nourished Orientation/consciousness: patient oriented x3 HENMT Head: Yes normocephalic and Yes atraumatic Eyes Eyelids: Yes eyelids normal Conjunctivae: conjunctivae normal Sclerae: sclerae normal Corneas: corneas normal Pupils: Equal, round and reactive pupils present EOM: EOMs intact bilaterally Neck Neck: Yes full ROM Resp Effort & Inspection: normal respiratory effort, able to speak in complete sentences and not labored Skin General skin exam: elasticity normal Neuro General: patient oriented x3 Cranial nerves: Yes CN's II-XII intact bilaterally, Yes Equal, round and reactive pupils present and Yes Bilaterally intact EOM present Cognition (Neuro): normal cognition Extrem Other: Moving all extremities well without any obvious deformities Medical Decision Making Medical Decision Making [facility] Narrative: 40-year-old female presents for evaluation of depression with suicidal ideation. At the time of my evaluation she reports that she is no longer feeling suicidal and not having auditory hallucinations. She states that she feels well and wants to be discharged home. She is adamant that she feels safe being discharged home. The patient was seen with the care team and ultimately cleared for discharge to home. Differential Diagnosis Differential Diagnoses: The differential diagnosis associated with the presentation includes Depression Suicidal ideation Mood disorder Bipolar disorder Schizoaffective disorder PTSD Lab Data [facility] Lab Attestation statement: I reviewed the patient's lab results. No leukocytosis or significant anemia. Normal platelet count. No electrolyte abnormalities warranting intervention. 06/28/25 16:50 06/28/25 16:50 Labs: Lab Results 06/28/25 06/28/25 Range/Units 16:42 16:50 WBC 7.1 (4.8-10.8) X10*3/uL RBC 4.23 (4.20-5.50) X10*6/uL Hgb 12.6 (12.0-16.0) g/dl Hct 37.9 (37.0-47.0) % MCV 89.6 (80.0-98.0) fL MCH 29.8 (27.0-33.0) pg MCHC 33.2 (31.0-35.0) g/dl RDW 13.0 (11.0-16.0) % Plt Count 257 (160-400) X10*3/uL MPV 11.6 (9.4-12.3) fL Immature Gran % (Auto) 0.3 (0.0-0.4) % Neut % (Auto) 76.7 H (45-73) % Lymph % (Auto) 14.7 L (20-40) % [place] % (Auto) 7.3 (2-11) % Eos % (Auto) 0.7 (0-4) % Baso % (Auto) 0.3 (0-2) % Lymph # (Auto) 1.0 L (1.2-4.9) X10*3/uL [place] # (Auto) 0.5 (0.1-1.2) X10*3/uL Eos # (Auto) 0.1 (0.0-0.4) X10*3/uL Baso # (Auto) 0.0 (0.0-0.2) X10*3/uL Abs Immat Gran (auto) 0.02 (0.00-0.03) X10*3/uL Absolute Neuts (auto) 5.4 (2.0-8.3) x10*3/uL Absolute Nucleated RBC 0.000 (0.0-0.012) X10*3/uL Nucleated RBC % (auto) 0.0 (0.0-0.2) /100WBC Sodium 136 (135-145) mmol/L Potassium 4.5 (3.3-5.1) mmol/L Chloride 103 (96-108) mmol/L Carbon Dioxide 27 (22-29) mmol/L Anion Gap 11 L (12-20) BUN 7 L (9-16) mg/dL Creatinine 0.85 (0.5-1.4) mg/dL Estim Creat Clear Calc 94.3 Estimated GFR > 60 Random Glucose 97 (60-115) mg/dL Calcium 9.9 (8.4-10.2) mg/dL Total Bilirubin 0.3 (0.0-1.0) mg/dL AST 16 (5-31) U/L ALT 16 (0-31) U/L Alkaline Phosphatase 57 (39-117) U/L Total Protein 7.1 (6.5-8.0) g/dL Albumin 4.6 (3.5-5.0) g/dL Urine Color Yellow Urine Appearance Clear Urine pH 7.0 (5.0-9.0) Ur Specific [place] 1.010 (1.005-1.025) Urine Protein Negative (Neg-Trace) mg/dL Urine Glucose (UA) Negative (Negative) mg/dL Urine Ketones Negative (Negative) mg/dL Urine Blood Negative (Negative) Urine Nitrite Negative (Negative) Ur Leukocyte Esterase Negative (Negative) Urine Test NEGATIVE (NEGATIVE) Urine Opiates Screen Not Detected (Not Detect) Ur Buprenorphine Scrn Not Detected (Not Detect) ng/mL Ur Oxycodone Screen Not Detected (Not Detect) ng/mL Urine Methadone Screen Not Detected (Not Detect) ng/mL Urine Fentanyl Screen Not Detected (Not Detect) Ur Barbiturates Screen Not Detected (Not Detect) Ur Phencyclidine Scrn Not Detected (Not Detect) Ur Amphetamines Screen Not Detected (Not Detect) U Benzodiazepines Scrn Not Detected (Not Detect) Urine Cocaine Screen Not Detected (Not Detect) U Marijuana (THC) Screen POSITIVE H (Not Detect) Ethyl Alcohol < 10 mg/dL Discharge Plan Discharge Clinical Impression: Depression with suicidal ideation Patient Disposition: Home, Self-Care Instructions: Depression (ED) Additional Instructions: You were seen in our Emergency Department today for treatment of a behavioral health issue. It is important after your visit that you follow up with either your behavioral health provider or a primary care doctor within 7 days.? If you have trouble finding a therapist you can reach out to [address] [phone] The National Suicide and Crisis Lifeline can be reached 7 days a week 24 hours a day.? Call 718 to speak with someone.? Return for any worsening symptoms or concerns such as thoughts of self harm or harm to others. Please call 911 if you feel your mental health is worsening.? Prescriptions: No Action clonidine HCl 0.1 mg tablet 0.1 mg PO TID Rx Instructions: takes at 0800, 1400 and 2000 benztropine 0.5 mg tablet 0.5 mg PO BID prazosin 5 mg capsule 15 mg PO BEDTIME trazodone 100 mg tablet 200 mg PO BEDTIME omeprazole 20 mg capsule,delayed release(DR/EC) 20 mg PO Q OTHER DAY cholecalciferol (vitamin D3) [Vitamin D3] 25 mcg (1,000 unit) tablet 25 mcg PO DAILY haloperidol 5 mg tablet 5 mg PO TID prazosin 1 mg capsule 1 mg PO BEDTIME haloperidol decanoate 100 mg/mL solution 75 mg IM Q28D albuterol sulfate 90 mcg/actuation HFA aerosol inhaler 2 puff inhalation Q4-6H PRN (Reason: shortness of breath or wheezing) Qty: 6.7 0RF duloxetine 60 mg capsule,delayed release(DR/EC) 60 mg PO DAILY 30 Days Qty: 30 0RF Rx Instructions: take with 30mg capsule diphenhydramine HCl [Banophen] 50 mg capsule 100 mg PO BEDTIME Incruse Ellipta 62.5 mcg/actuation blister with device 1 inh INHALATION DAILY acetaminophen 500 mg Tablet 500 mg PO Q6H PRN (Reason: Pain) ibuprofen 600 mg Tablet 600 mg PO TID PRN (Reason: Pain) polyethylene glycol 3350 [Miralax] 17 gram/dose Powder 17 g PO DAILY PRN (Reason: Constipation) fluticasone propionate 50 mcg/actuation spray,suspension 2 spray intranasal DAILY zolpidem 10 mg tablet 10 mg PO BEDTIME multivitamin Tablet 1 tab PO DAILY lithium carbonate 450 mg Tablet Extended Release 900 mg PO BEDTIME 30 Days Qty: 60 0RF fluticasone propion-salmeterol [Advair HFA] 230-21 mcg/actuation HFA aerosol inhaler 2 puff INHALATION BID calcium carbonate-vitamin D3 600 mg-10 mcg (400 unit) tablet 1 tab PO BID cetirizine 10 mg tablet 10 mg PO DAILY duloxetine 30 mg capsule,delayed release(DR/EC) 30 mg PO DAILY hydroxyzine HCl 50 mg tablet 50 mg PO DAILY PRN (Reason: mild anxiety) lorazepam 1 mg tablet 1 mg PO TID Interventions: [place]-Suicide Risk Severity Scale Last Done: 06/28/25 16:37 ED Discharge Assessment Last Done: 06/28/25 19:32 Print Language: Spanish
--- NOTE | 2025-06-28 19:25 | PC.NURSE ---
Assumed care at 1845. Presents as calm and cooperative. Denies SI/HI/AVH. Denies current pain/discomfort. Tells t/w I feel safe. I just want to go home and sleep in my bed. Will continue to monitor for safety.
[2025-06-28 19:32] VITALS: BP 112/65; PULSE 88; RESP 17; TEMP 36.8; O2SAT 99
== END 2025-06-28 19:38 | disposition home or self-care (01) ==
PROVIDERS: Emergency Provider Emergency Medicine Emergency Medical Services
DX: F33.1 Major depressive disorder, recurrent, moderate (principal); R45.851 Suicidal ideations; F17.210 Nicotine dependence, cigarettes, uncomplicated; F12.90 Cannabis use, unspecified, uncomplicated; Z51.81 Encounter for therapeutic drug level monitoring; Z79.899 Other long term (current) drug therapy
CPT/HCPCS: 36415; 80053; 80307; 81003; 81025; 85025; 99285; S9485

== ENCOUNTER 2025-06-30 19:45 | Emergency (ER) | payer OTHER, SELFPAY ==
--- OUTSIDE RECORDS SUMMARY | 2025-03-09 04:40 | XMS_ITS ---
Author Organization [facility] Address [address] [address] Care Team Providers Care Paper Bag Press Operator Name Role Phone JOSE ANTONIO MENON, COLETTE Primary Care Provider Adele Meier Unavailable [phone] REASON FOR VISIT Annual CHIEF WARDEN Physical Encounters Encounter Location Date Provider Diagnosis [facility] [address] [address] 03/09/2025 Adele Fairchild Plan Of Treatment No Information Progress Notes * MELISA THORNTONDOB:1985 (40 yo F)Acc No.[id number]:03/09/2025 Progress Note Patient: MELISA VIEIRA Appointment Provider: Jeffery Fairchild M.D. :1985 A ge:39 Y S ex:Female Date:03/09/2025 Address:[address] [place], [place] [id number] Pcp:COLETTE BRADY NP Subjective: * Chief Complaints: * 1 . Annual CHIEF WARDEN Physical. * Medical History: Objective: * Vitals: Assessment: Plan: * Treatment: * Images: Billing Information: * Visit Code: * Procedure Codes: * Electronic signature of Leon Fairchild MD on 06/30/2025 at 08:24 PM EST Sign off status: Pending * Appointment Provider: Jeffery Fairchild M.D. Date: 0 03/09/2025 Generated for Lj marin/Jessika/Nickolasitting on: 08/30/2024 08:24 PM EST
--- OUTSIDE RECORDS SUMMARY | 2025-06-29 23:59 | XMS_ITS | Continuity of Care Document ---
Author Organization [facility] Adult Address [address] [place] [address]- Support Name Relationship Address Phone THORNTON, CRYSTAL [...] Other Unknown Unavailable Care Team Providers Care Certified Master Safecracker Name Role Phone Hafsa Holcomb NP Primary Care Physician Encounter [facility] Date([facility]): 05/30/25 - 06/29/[address] [address]- Encounter Type: Triage Allergies, Adverse Reactions, Alerts [...] puffs, Inhalation, 2 times a day, # 1 each, 1 Refills, Maintenance, 06/28/25 1:30:00 PM EST, Aerosol, [facility], Partial fill upon patient request if the prescription is for a schedule II opioid drug., 2 puffs Inhalation 2 times a day,x30 days, 150.4, cm, 06/22/25 11:33:00 EST, Height, 87, kg, 02/05/25 14:06:00 EDT, Dry Weight Start Date: 06/28/25 Stop Date: 08/27/25 Status: Ordered Medication Dispense Status: Completed Quantity: 1.0 Unit: each Total Allowed Fills: 2 Fills Dispensed: 0 bacitracin zinc 500 units/g topical ointment See Instructions, Apply twice daily to wounds, # 28.4 Gm, 1 Refills, Maintenance, 03/08/25 4:02:00 PM EDT, [facility], 14, Apply twice daily to [...] Refills, Maintenance, 03/26/25 12:49:00 PM EDT, Tablet, [facility], Partial fill upon patient request if [...] 1 Refills, Maintenance, 04/18/25 10:40:00 AM EDT, [facility], 150, cm, 04/18/25 10:32:00 EDT, Height, [...] 3 Refills, Maintenance, 03/26/25 12:57:00 PM EDT, [facility], Partial fill upon patient request if [...] Refills, Maintenance, 05/11/24 3:03:00 PM EDT, Gel, [facility] [place], [place], Partial fill upon patient request if [...] 05/28/25 10:28:00 AM EDT, Tablet, [facility], Partial fill upon patient request if [...] Refills, Maintenance, 03/26/25 10:42:00 AM EDT, Nasal [place], [facility], Partial fill upon patient request [...] Maintenance, 06/29/24 1:29:00 PM EST, Powder, [facility] - [place], [place], Partial fill upon patient request if the [...] 3 Refills, Acute 03/21/26 12:56:00 PM EDT, 8/11/25 12:56:00 PM EDT, REC Powder, [facility], Partial fill upon patient request if [...] Refills, Maintenance, 05/08/25 10:22:00 AM EDT, Tablet, [facility], Partial fill upon patient request if [...] Maintenance, 03/26/25 12:49:00 PM EDT, EC Tablet, [facility], Partial fill upon patient request if [...] PM EDT, 05/17/25 12:59:00 PM EDT, Tablet, [facility], Partial fill upon patient request [...] 0 Refills, Maintenance, 02/05/25 2:22:00 PM EDT, [place], [facility] - [place], [place], Partial fill upon patient request if [...] Refills, Maintenance, 04/18/25 10:39:00 AM EDT, Aerosol, [facility], Partial fill upon patient request [...] Team Personnel Name: Lynnette Veloz RN Position: [facility] Reji RN Member Role: Primary Care Nurse Name: Shaylee Schilling RN Position: [facility] RN Member Role: Primary Care Nurse Name: Arlen Charles RN Position: [facility] RN Member Role: Primary Care Nurse Name: Sofía Reno RN Position: [facility] IVANNA Nurse Member Role: Primary Care Nurse Name: Arlen Villarreal RN Position: [facility] IONA RN W/OE and Tasks Member Role: Primary Care Nurse Name: Hafsa Holcomb NP Position: [facility] PCO Associate Professional Member Role: PCP Address: [address] [place] [phone] [place] Telecom: Name: Felicia Shaw RN Position: [facility] IONA RN W/OE and Tasks Member Role: Primary Care Nurse Name: Rosio Medrano RN Position: [facility] AMB Nurse Member Role: Primary Care Nurse Name: Johnny WOOD, Paige Llanes Position: [facility] Hospital Unit Aid Member Role: Primary Care Nurse Name: Kristie Haddad RN Position: [facility] RN Member Role: Primary Care Nurse Name: Venkat Hobson RN Position: [facility] Unit Aid Member Role: Primary Care Nurse Name: Balbir Peace MD Position: [facility] Physician - Behavioral Health Member Role: [employer] Consulting Physician Address: [address] [place] [address] Child Outpatient [address] Telecom: Care Team Related Persons Name: CORY HONG Name: VICENTA BECKMAN Name: STEVEN CAMPBELL Name: CHARLY THORNTON Name: GAVIN THORNTON Insurance Providers Guarantor name: [employer]el[employer] Plan Information #: 1 Payer: [facility] Payer Identifier: [id number] Member Number: [id number] Group Number: [id number] Subscriber Identifier: NA Relationship to Subscriber: self Coverage Type: Medicaid (Managed Care) Coverage Verification Date: NA Telecom: NA Address:
--- OUTSIDE RECORDS SUMMARY | 2025-06-29 23:59 | XMS_ITS | Continuity of Care Document ---
Author Organization [facility] Address [address] [place] [address]- Support Name Relationship Address Phone THORNTON, CRYSTAL [...] Other Unknown Unavailable Care Team Providers Care Blanket Maker Name Role Phone Zhang MENON, Hafsa Primary Care Physician [phone] [id number] Date(s): [facility]/22/25 - 06/29/25 [facility] [address] [place] [address]- Attending Physician: Yaquelin Tineo MD Referring Physician: Stephanie Sanches NP Encounter Type: Office Visit Allergies, Adverse Reactions, Alerts Substance Criticality Severity Reaction Reaction Severity Status topiramate Nausea and vomiting Active Tegretol Active Functional Status Functional Status Assessment Assessment Assessment Component Result Effecti ve Date Disability status [CUBS] I'm Thriving - no identified disability 06/22/25 Are you deaf, or do you have serious difficulty hearing No 06/22/25 Because of a physica l, mental, or emotional condition, do you have serious difficulty concentrating, remembering, or making decisions No 06/22/25 Do you have serious difficulty walking or climbing stairs No 06/22/25 Difficulty communica ting in usual language No 06/22/25 Difficulty Reading O r Writing No 06/22/25 Are you blind, or do you have serious difficulty seeing, even when wearing glasses No 06/22/25 Do you have difficul ty dressing or bathing No 06/22/25 Do you need any natalia tional assistance or accommodations during your visit No 06/22/25 Because of a physica l, mental, or emotional condition, do you have difficulty doing errands alone such as visiting a physician's office or shopping No 06/22/25 Immunizations Given and Recorded Vaccine Date Status Refusal Reason tetanus/diphtheria/pertussis, acel(Tdap) 09/27/23 Given tetanus/diphtheria/pertussis, acel(Tdap) 11/02/09 Given pneumococcal 23-valent vaccine 05/11/09 Given Diphth-Tetanus Toxoids Adsorbed(oldterm) 04/15/05 Given Medications Advair HFA 230 mcg / 21 mcg 2 puffs, Inhalation, 2 times a day, # 1 each, 1 Refills, Maintenance, 06/28/25 1:30:00 PM EST, [facility], [facility], [facility] fill upon patient request if [...] 1 Refills, Maintenance, 03/08/25 4:02:00 PM EDT, [facility], 14, Apply twice daily to [...] Refills, Maintenance, 03/26/25 12:49:00 PM EDT, Tablet, [facility], Partial fill upon patient request if [...] 1 Refills, Maintenance, 04/18/25 10:40:00 AM EDT, [facility], 150, cm, 04/18/25 10:32:00 EDT, Height, [...] 3 Refills, Maintenance, 03/26/25 12:57:00 PM EDT, [facility], Partial fill upon patient request if [...] 6 Refills, Maintenance, 05/11/24 3:03:00 PM EDT[facility] [place] [place], [facility] fill upon patient request if [...] Soft Stop, 05/28/25 10:28:00 AM EDT, Tablet, [facility], Partial fill upon patient request if [...] Refills, Maintenance, 03/26/25 10:42:00 AM EDT, Nasal [place], [facility], Partial fill upon patient request if [...] Refills, Maintenance, 06/29/24 1:29:00 PM EST, [place], [facility] [place], [place], Partial fill upon patient request if [...] EDT, 03/26/25 12:56:00 PM EDT, REC [place], [facility], Partial fill upon patient request if [...] Refills, Maintenance, 05/08/25 10:22:00 AM EDT, Tablet, [facility], Partial fill upon patient request if [...] Maintenance, 03/26/25 12:49:00 PM EDT, EC Tablet, [facility], Partial fill upon patient request if [...] PM EDT, 05/17/25 12:59:00 PM EDT, Tablet, [facility], Partial fill upon patient request if [...] 0 Refills, Maintenance, 02/05/25 2:22:00 PM EDT, [place], [facility] [place], [place], Partial fill upon patient request if [...] a schedule II opioid drug. Start Date: 2/13/24 Status: Ordered Medication Dispense Status: Completed Total [...] Refills, Maintenance, 04/18/25 10:39:00 AM EDT, Aerosol, [facility], Partial fill upon patient request if [...] syndrome Confirmed Active Urinary incontinence Confirmed Active Vital Signs Most recent to oldest [Reference Range]: 1 Height 150.4 cm (06/22/25 11:33 AM) Weight 88.3 kg (06/22/25 11:33 AM) Body Mass Index [18.5-24.99 kg/m2] 39.04 kg/m2 *H* (06/22/25 11:33 AM) Blood Pressure [90-138/55-84 mm Hg] 122/ 82mm Hg (06/22/25 11:33 AM) Blood pressure sites Arm, left (06/22/25 11:33 AM) Weight Obtained Via Standing scale (06/22/25 11:33 AM) Note * Nelson Simpson: PERFORM Event Display: Patient Education/Instruction Authored Date: [id number] Ambulatory Adult Visit Summary [facility] [place] [address] Name: MELISA THORNTON : 1985?? Visit: 06/22/2025 11:14?? Ambulatory Visit Instructions ?? Your Care Team Primary Care Provider Hafsa Holcomb NP? This Visit Provider Yaquelin Tineo MD Vitals Signs Systolic Blood Pressure: 122 mm Hg Height: 150.4 cm Diastolic Blood Pressure: 82 mm Hg Weight: 88.3 kg ?? Body Mass Index:??39.04 kg/m2??High ?? Body surface area: 1.92 What to do next Scheduled Follow-Up Appointments Wednesday 2:20 PM EST ?? Type: Return MEDIA ANALYST With: Yaquelin Tineo MD Where: [address] [place] [address]- Status: Pending Future Orders CBC w/ Differential - Routine, Once, 06/13/25 [...] 30 Days Special Instructions: j45.40 Ordering Physician: Sofía Shah ?? Unchanged Bacitracin Topical (bacitracin zinc 500 [...] Instructions: 8am, 2pm, 8pm, hold for dizziness/ ??lightheadedness ?? Unchanged Diclofenac Topical (diclofenac 1% topical gel) [...] for Other Special Instructions: for agitation / ??hallucinations ?? Unchanged Haloperidol (haloperidol decanoate 100 mg/ ml injectable solution) Special Instructions: 75 mg q 28 days ?? Unchanged [place] (lithium 450 mg oral tablet, extended release) [...] Days Ordering Physician: Hafsa Holcomb NP Unchanged Omeprazole (omeprazole 20 mg oral enteric coated capsule) Special Instructions: 15 each, 0 Refill(s), TAKE 1 CAPSULE BY MOUTH every other DAY ?? Unchanged Ondansetron (ondansetron 4 mg oral tablet) [...] at least 24 hours apart Ordering Physician: Brian LEUNG, Deuce ?? Unchanged Zolpidem (zolpidem 10 mg oral tablet) 1 tab(s) Oral Daily at Bedtime Lab Test Results Point of Care Results Urine test: Negative (Normal) (06/22/25) Medications and Immunizations Administered Medications Given During Visit No medications given during this visit.?? Allergies (NKA means No Known Allergies) Tegretol topiramate??Nausea and vomiting Education Materials Below is the list of Educational Leaflet Providered with your Visit summary. WebMD Ignite Patient Education - Colposcopy?? Common Emergency Awareness Tips IS IT A [...] are strongly encouraged to quit. Please call [facility] waygum Link at [phone] or [phone] (4457) or log in to [email or web address] for referrals to smoking cessation programs. ?? The National Suicide Prevention Hotline is available 08/03 if you or someone you know needs to find a reason to keep living. By calling 4-499-755-[place] (4562) you'll be connected to a skilled, trained counselor at a crisis center in your area. [facility] waygum Portal You can view and manage your care through the patient portal or by using a health care jesús of your choosing. [employer] is a website that allows you to securely view your medical information including your hospital discharge summary, office visit summaries, medications and follow-up visits. You can also request appointments, renew medications, and request access to your medical information using a health care jesús of your choosing, or just ask a question. You can enroll at [email or web address] or register during your next office visit. [facility], in keeping with [facility] guidance, no longer requires face masks [...] primary care provider, you may find a [facility] Health provider by calling [facility] [employer]alis at [phone]. * Ariella Dick MA: PERFORM Event Display: Patient Education Leaflets Authored Date: [id number] Colposcopy ?? 18951 Colposcopy Colposcopy is a procedure that gives your health care provider a magnified view of your cervix. It's done using a lighted microscope called a colposcope. In most cases, a sample of cervical cells is taken during a biopsy. The sample can then be studied in a lab. If any problems are found, you and your provider will discuss treatment choices. It usually takes less than??30 minutes, and you can often go back to your normal routine right away. Reasons for the procedure Colposcopy is usually done as a follow-up exam to help find the cause of an abnormal Pap test. Results of an abnormal Pap test can mean that??the cells don???t appear normal or that??there are cancercells. Abnormal cells can also be caused by infections.??HPV??(human papillomavirus)??is a large family of viruses??that??can be passed from person to person through sex. HPV??can cause genital warts. It can also cause changes in cervical cells.??If an HPV test is positive and the Pap test is abnormal, a colposcopy may be recommended. Colposcopy is also used to??evaluate??other problems.??These include: ??? Pain or bleeding during sex. ??? Postmenopausal bleeding. ??? Unexplained abnormal lowergenital tract bleeding. ??? Sore (lesion) on the vulva or vagina. ??? Persistent abnormal vaginal discharge. ?? What are the risks? Problems after colposcopy are very rare, but can include: ??? Bleeding (if a biopsy is done). ??? Infection. ?? Getting ready for the procedure Colposcopy is normally done in your health care provider???s office. It will be scheduled for a time when you???re not having your menstrual period. You may be asked to sign a form giving your consent to have the procedure. A day or two before the procedure, your provider may also ask you to: ??? Not have sex. ??? Stop using tampons. ??? Not use creams or other vaginal medicines. ??? Not clean out the vagina with water or other fluids (douche). ??? Take fumc-stp-tcftlml pain medicines an hour or two before the procedure. ?? During colposcopy ??? You will be asked to lie on an exam table with your knees bent, just as you do for a Pap test. ??? A tool called a speculum is inserted into the vagina to hold it open. ??? A vinegar or iodine solution is applied to the cervix to make the abnormal cells easier to see. You may feel pressure or aslight burning for a few moments. In some cases, the cervix may be numbed first with an anesthetic. ??? The cervix is looked at through the colposcope. This is placed outside the vagina. ??? If your health care provider sees abnormal areas on your cervix, a biopsy will be done. You may feel a slight pinch and cramping. The tissue sample is sent to a lab for study. ??? An endocervical curettage may also be done at the time of colposcopy. In this procedure, a tool is put into the endocervical canal to get a sample of cells from the endocervix. This area can't be seen with a colposcope.? You may feel slight pinching or cramping during the biopsy. Medicine or a thick paste may be applied to the biopsy site to stop bleeding. ?? After the procedure ??? If you feel lightheaded or dizzy, you can rest on the table until you???re ready to sit up. ??? If a biopsy was done, you may have mild cramping or light bleeding for a few days. You may also have a thick, dark discharge from the medicine used to stop bleeding at the biopsy site. ??? Use pads or panty liners, but not tampons, for at least the first 24 hours. ??? If you have any discomfort, dysp-ngf-luuoxpw pain medicine can provide relief. ??? Ask your health care provider when you can have sex again. ?? Follow-up If a biopsy was done, your health care provider will get the lab report in a week or 2. You and your provider can then discuss the results. In some cases, you may be scheduled for more tests or treatment. Be sure to keep follow-up appointments with your provider. ?? When to contact your doctor Contact your health care provider if you have: ??? Heavy vaginal bleeding (more than one pad an hour for 2 hours). ??? Severe or increasing pelvic pain. ??? A fever over??100.4??F??(38??C), or higher, or as directed by your provider. ??? Bad-smelling or unusual vaginal discharge. ?? Last Reviewed Date: 2024 00:00:00 ?? 2660-5347 The [employer]. All rights reserved. This information is not intended as a substitute for professional medical care. Always follow your healthcare professional's instructions. ?? Patient Care team information Care Team Personnel Name: Lynnette Veloz RN Position: [facility] Rad RN Member Role: Primary Care Nurse Name: Shaylee Schilling RN Position: [facility] RN Member Role: Primary Care Nurse Name: Arlen Charles RN Position: [facility] RN Member Role: Primary Care Nurse Name: Sofía Reno RN Position: [facility] IVANNA Nurse Member Role: Primary Care Nurse Name: Arlen Villarreal RN Position: [facility] [place] RN W/OE and Tasks Member Role: Primary Care Nurse Name: Hafsa Holcomb NP Position: [facility] PCO Associate Professional Member Role: PCP Address: [address] [place] [id number] Telecom: Name: Felicia Shaw RN Position: [facility] [place] RN W/OE and Tasks Member Role: Primary Care Nurse Name: Rosio Medrano RN Position: [facility] AMB Nurse Member Role: Primary Care Nurse Name: Paige Turner RN Position: [facility] Manager Intranet Member Role: Primary Care Nurse Name: Kristie Haddad RN Position: [facility] RN Member Role: Primary Care Nurse Name: Venkat Hobson RN Position: [facility] Manager Intranet Member Role: Primary Care Nurse Name: Balbir Peace MD Position: [facility] Physician - Behavioral Health Member Role: [employer] Physician Address: [address] [facility] [address] Telecom: Care Team Related Persons Name: CORY HONG Name: VICENTA BECKMAN Name: STEVEN CAMPBELL Name: CHARLY THORNTON Name: GAVIN THORNTON Insurance Providers Guarantor name: ZayoERO waygum Plan Information #: 1 Payer: [facility] Payer Identifier: RIMA Member Number: [id number] Group Number: [id number] Subscriber Identifier: [id number] Relationship to Subscriber: self Coverage Type: Medicaid (Managed Care) Coverage Verification Date: NA Telecom: NA Address: NA
[2025-06-30 19:52] VITALS: BP 119/79; PULSE 94; O2SAT 98
[2025-06-30 19:57] VITALS: BP 121/70; PULSE 114; RESP 16; TEMP 36.5; O2SAT 100; BMI 40.0
--- OUTSIDE RECORDS SUMMARY | 2025-06-30 20:23 | XMS_ITS | Patient Health Record ---
Author Organization [facility] Address [address] [place] [address] Care Team Providers Care Utility Clerk Name Role Phone COLETTE BRADY NP Primary Care Provider Adele Meier Unavailable [phone] Reason For Referral No Information Encounters Encounter Location Date Provider Diagnosis [facility] [address] [place] [address] 03/09/2025 Adele Fairchild Plan Of Treatment No Information Insurance Providers Payer Name Payer Address Payer Phone Subscriber Number Group Number Insured Name Patient Relationship to Insured Coverage Start Date Coverage End Date [facility] [address] [place] [id number] [phone] MELISA THORNTON Self - patient is the insured
--- OUTSIDE RECORDS SUMMARY | 2025-06-30 20:24 | XMS_ITS | Clinical Summary ---
Author Organization [facility] Address [address] [place] [phone] Phone Care Team Providers Care Home Health Care Physician Name Role Phone Carroll Gaviria MD Primary [...] topic Medical Devices Not on file Insurance [facility] [place], [place] [address] Explore.To Yellow Pages [employer] [place] SNOQUALMIECareerFoundryANCE [employer] [place] Explore.To Yellow Pages [employer] [place] [place] [facility] Retail Rocket O [place] [employer] [place] [employer] [facility] [place] [facility] Eupraxia PharmaceuticalsHONOR[facility] Care Teams Home Health Care Physician Relationship Specialty Start Date End Date Carroll Gaviria MD [address] [place] [id number] PCP - General Internal Medicine 12/20/23 Additional Source Comments The information contained in this document represents components of the legal health record. It is not the complete legal health record.[facility]
[2025-06-30 20:40] LABS: MANUAL DIFF FLAG NO
[2025-06-30 20:42] LABS: Hematocrit 36.6 % (37.0-47.0); Hemoglobin 12.1 g/dl (12.0-16.0); Imm Gran Abs Auto 0.02 X10*3/uL (0.00-0.03); Imm Gran Pct Auto 0.3 % (0.0-0.4); Lymphocytes Absolute Auto 1.3 X10*3/uL (1.2-4.9); Mean Corpuscular HGB Conc 33.1 g/dl (31.0-35.0); Mean Corpuscular Hemoglobin 29.5 pg (27.0-33.0); Mean Corpuscular Volume 89.3 fL (80.0-98.0); NRBC Abs Auto 0.000 X10*3/uL (0.0-0.012); NRBC Pct Auto 0.0 /100WBC (0.0-0.2); Platelet Count 228 X10*3/uL (160-400); Red Blood Count 4.10 X10*6/uL (4.20-5.50); White Blood Count 6.5 X10*3/uL (4.8-10.8)
[2025-06-30 20:43] LABS: Appearance Urine Cloudy; Glucose Urine UA Negative (Negative); PH 6.0 (5.0-9.0); Specific Gravity - Urine 1.020 (1.005-1.025); UMIC TRIGGER UACC YES
[2025-06-30 20:50] LABS: Lithium 1.08 mmol/L (0.60-1.20)
[2025-06-30 20:52] LABS: Cannabinoid Screen Urine POSITIVE (Not Detect)
[2025-06-30 21:00] LABS: Acetaminophen LAB < 3 mcg/mL (<30); Salicylate < 5.0 mg/dL (15-30)
[2025-06-30 21:03] LABS: Alanine Aminotransferase 14 U/L (0-31); Albumin Level 4.3 g/dL (3.5-5.0); Alkaline Phosphatase 59 U/L (39-117); Anion Gap 12 (12-20); Aspartate Amino Transferase 11 U/L (5-31); Blood Urea Nitrogen 8 mg/dL (9-16); Calcium 9.9 mg/dL (8.4-10.2); Carbon Dioxide 23 mmol/L (22-29); Chloride 107 mmol/L (96-108); Creatinine Clr Calc Pharmacy 89.8; Estimated Glomerular Filt Rate > 60; Potassium 4.1 mmol/L (3.3-5.1); Sodium 138 mmol/L (135-145); Total Protein 6.7 g/dL (6.5-8.0)
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
--- NOTE | 2025-07-01 04:59 | PC.NURSE ---
Med rec Med rec complete using list sent by skilled nursing.
--- NOTE | 2025-07-01 07:58 | PC.NURSE ---
Assumed care of patient at 0645, patient appears to be in no apparent distress this am, calm and cooperative, requesting to be discharged. Patient aware of plan of care for CARE team ar
--- NOTE | 2025-07-01 08:16 | PHA.MEDREC ---
Pharmacy Consult ? Medication Reconciliation Pharmacy has reviewed the medication reconciliation done by nursing, using medication list from [facility]. Confirmed from med list that pt is taking duloxetine 90 mg daily, prazosin 16 mg at bedtime. Nurse Alvarado is contacting [facility] for last dose of haloperidol dec 75 mg IM q28d.
[2025-07-01] MEDS: Calcium + Vitamin D 250 MG TABLET 500 MG PO (08:28)
[2025-07-01] MEDS: Tiotropium Bromide 2.5 mcg 1 PUFF/2.5 MCG MIST.INHAL 2 PUFF INHALE (09:13)
[2025-07-01 10:37] VITALS: BP 129/66; PULSE 94; RESP 14; TEMP 36.7; O2SAT 96
== END 2025-07-01 10:39 | disposition home or self-care (01) ==
PROVIDERS: Emergency Provider Emergency Medicine
DX: R45.851 Suicidal ideations (principal); F25.9 Schizoaffective disorder, unspecified; F43.10 Post-traumatic stress disorder, unspecified; F60.3 Borderline personality disorder; F43.20 Adjustment disorder, unspecified; J44.89 Other specified chronic obstructive pulmonary disease
CPT/HCPCS: 36415; 80053; 80143; 80178; 80179; 80307; 81001; 84702; 85025; 99285; S9485

== ENCOUNTER 2025-07-04 05:44 | Day surgery (SDC) | payer OTHER, SELFPAY ==
--- OUTSIDE RECORDS SUMMARY | 2025-03-09 05:40 | XMS_ITS ---
Author Organization [facility] [employer] [facility] Address [address] [address] Care Team Providers Care Student Outreach Coordinator Name Role Phone JOSE ANTONIO MENON, COLETTE Primary Care Provider Adele Meier Unavailable [phone] REASON FOR VISIT Annual BUSINESS SERVICES ASSOCIATE Physical Encounters Encounter Location Date Provider Diagnosis [facility] [address] [address] 03/09/2025 Adele Fairchild Plan Of Treatment No Information Progress Notes * MELISA THORNTONDOB:1985 (40 yo F)Acc No.[id number]:03/09/2025 Progress Note Patient: MELISA VIEIRA Appointment Provider: Jeffery Fairchild M.D. :1985 A ge:39 Y S ex:Female Date:03/09/2025 Address:[address] [place], [place] [phone] Pcp:COLETTE BRADY NP Subjective: * Chief Complaints: * 1 . Annual BUSINESS SERVICES ASSOCIATE Physical. * Medical History: Objective: * Vitals: Assessment: Plan: * Treatment: * Images: Billing Information: * Visit Code: * Procedure Codes: * Electronic signature of Leon Fairchild MD on 06/06/2025 at 08:34 AM EDT Sign off status: Pending * Appointment Provider: Jeffery Fairchild M.D. Date: 0 03/09/2025 Generated for Lj marin/Jessika/Nickolasitting on: 08:34 AM EDT
--- OUTSIDE RECORDS SUMMARY | 2025-06-06 08:34 | XMS_ITS | Patient Health Record ---
Author Organization [facility] Address [address] [place] [address] Care Team Providers Care Manager Plan Name Role Phone COLETTE BRADY NP Primary Care Provider Adele Meier Unavailable [phone] Reason For Referral No Information Encounters Encounter Location Date Provider Diagnosis [facility] [address] [place] [address] 03/09/2025 Adele Fairchild Plan Of Treatment No Information Insurance Providers Payer Name Payer Address Payer Phone Subscriber Number Group Number Insured Name Patient Relationship to Insured Coverage Start Date Coverage End Date [facility] [address] [place] [id number] [phone] MELISA THORNTON Self - patient is the insured
[2025-07-04] VITALS (8 sets, daily range): BP systolic 114–152; BP diastolic 72–95; PULSE 73–117; RESP 12–16; TEMP 36.4–36.6; O2SAT 94–97; BMI 41.4
--- NOTE | 2025-07-04 06:43 | HO.ANESPROP2 ---
[facility] Active Problems Active Problems: All Active Problems Chronic post-traumatic stress disorder (PTSD) (Acute) MDD (major depressive disorder), recurrent, severe, with psychosis (Acute) Osteoarthritis of right knee (Acute) Chronic post-traumatic stress disorder (PTSD) (Chronic) Borderline personality disorder (Chronic) Auditory hallucinations (Acute) Port-A-Cath in place (Acute) Intentional self-harm (Acute) COPD (chronic obstructive pulmonary disease) (Acute) Asthma (Acute) Adjustment disorder (Acute) Injury of ligament of right knee (Acute) Sprain of anterior cruciate ligament of right knee (Acute) Hernia (Chronic) Increased BMI (Acute) GERD (gastroesophageal reflux disease) (Acute) Past Medical History Medical History Depression Schizoaffective disorder, depressive type Depression with suicidal ideation MDD (major depressive disorder), recurrent, severe, with psychosis Port-A-Cath in place History of electroconvulsive therapy COVID-19 COVID-19 Sprain of left foot Chronic post-traumatic stress disorder (PTSD) COPD (chronic obstructive pulmonary disease) Increased BMI GERD (gastroesophageal reflux disease) Recurrent major depression-severe Acute post-traumatic stress disorder Injury, self-inflicted Suicidal ideation Self-harming behavior Intentional self-harm Suicidal ideation Borderline personality disorder Schizoaffective disorder Adjustment disorder Asthma Depression Anxiety PTSD (post-traumatic stress disorder) Family History Family History Mother Brain cancer Other No family history of cardiac disease Family history of problems with anesthesia: No Surgical History History of Problems with Anesthesia: No Social History Social History Household Members: Other Household Members Other:: [facility] [employer] Housing: Other Housing Other:: [facility] Do you presently have visiting nurse or other home services: No Alcohol intake: never Patient Tobacco Use Status: Current everyday Tobacco user Tobacco use type: Cigarette Cigarette Packs Per Day: 0.5 Cigarettes Per Day: 10.0 Years Smoked: 20 e-Cigarette/Vaping Use: Never Used Second Hand Smoke Exposure: No Substance Use Type: Marijuana Advance Directives: No Advance Directives Information Provided: Yes service: No Current occupation: rt handed Sexual orientation: Straight/Heterosexual Meds Allergies Allergy/AdvReac Type Severity Reaction Status Date / Time carbamazepine (From TEGRETOL) AdvReac Mild Nausea and Verified 06/30/25 20:03 Vomiting topiramate (From Topamax) AdvReac Mild Nausea and Verified 06/30/25 20:03 Vomiting Active Medications: Current Medications Lactated Ringer's (Lr) 1,000 mls @ 50 mls/hr IVCONT .Q20H SULEIMAN Home Medications ?Medication ?Instructions ?Recorded ?Confirmed ?Last Taken ?Type benztropine 0.5 mg tablet 0.5 mg PO BID 04/30/24 07/01/25 06/28/25 History clonidine HCl 0.1 mg tablet 0.1 mg PO TID 04/30/24 07/01/25 06/28/25 History omeprazole 20 mg capsule,delayed 20 mg PO Q OTHER DAY 04/30/24 07/01/25 06/28/25 History release prazosin 5 mg capsule 15 mg PO BEDTIME 04/30/24 07/01/25 06/27/25 History trazodone 100 mg tablet 200 mg PO BEDTIME insomnia 04/30/24 07/01/25 06/27/25 History multivitamin 1 tab PO DAILY 05/17/24 07/01/25 06/28/25 History zolpidem 10 mg tablet 10 mg PO BEDTIME insomnia 05/17/24 07/01/25 06/27/25 History cholecalciferol (vitamin D3) 25 25 mcg PO DAILY 07/29/24 07/01/25 06/28/25 History mcg (1,000 unit) tablet (Vitamin D3) haloperidol 5 mg tablet 5 mg PO TID 08/15/24 07/01/25 06/28/25 History haloperidol decanoate 100 mg/mL 75 mg IM Q28D 08/15/24 07/01/25 06/15/25 History intramuscular solution prazosin 1 mg capsule 1 mg PO BEDTIME 08/15/24 07/01/25 06/27/25 History calcium 600 mg (as 1 tab PO BID 11/02/24 07/01/25 06/28/25 History carbonate)-vitamin D3 10 mcg (400 unit) tablet fluticasone propionate 230 2 puff inhalation BID 11/02/24 07/01/25 06/28/25 History mcg-salmeterol 21 mcg/actuation HFA inhaler (Advair HFA) cetirizine 10 mg tablet 10 mg PO DAILY 11/06/24 07/01/25 06/28/25 History duloxetine 30 mg capsule,delayed 30 mg PO DAILY 11/06/24 07/01/25 06/28/25 History release diphenhydramine HCl 50 mg capsule 100 mg PO BEDTIME insomnia 12/03/24 07/01/25 06/27/25 History (Banophen) umeclidinium 62.5 mcg/actuation 1 inh inhalation DAILY 12/03/24 07/01/25 06/27/25 History blister powder for inhalation (Incruse Ellipta) acetaminophen 500 mg tablet 500 mg PO Q6H PRN Pain 02/12/25 07/01/25 Unknown History fluticasone propionate 50 2 spray intranasal DAILY 02/12/25 07/01/25 06/28/25 History mcg/actuation nasal spray,suspension ibuprofen 600 mg tablet 600 mg PO TID PRN Pain 02/12/25 07/01/25 Unknown History polyethylene glycol 3350 17 17 g PO DAILY PRN Constipation 02/12/25 07/01/25 Unknown History gram/dose oral powder (Miralax) hydroxyzine HCl 50 mg tablet 50 mg PO DAILY PRN mild anxiety 06/28/25 07/01/25 06/27/25 History lorazepam 1 mg tablet 1 mg PO TID anxiety/agitation 06/28/25 07/01/25 06/28/25 History nicotine (polacrilex) 4 mg buccal 4 mg buccal Q2H PRN Smoking 07/01/25 07/01/25 Unknown History lozenge Cessation ondansetron HCl 4 mg tablet 4 mg PO Q8H PRN Nausea And Vomiting 07/01/25 07/01/25 Unknown History Exam Height,Weight and Vital Signs: Height 4 ft 11 in Weight 92.986 kg Last Vital Signs Temp 97.6 F 07/04/25 06:27 Pulse 73 07/04/25 06:27 Resp 12 07/04/25 06:27 BP 137/94 H 07/04/25 06:27 Pulse Ox 97 07/04/25 06:27 O2 Del Method Room Air 07/04/25 06:27 Airway Mallampati Class: II (poor dentition) TM Dist: >3cm Neck ROM: Full Heart: rrr Lungs: cta Assessment and Plan Assessment Anesthesia Assessment: Anesthesia Plan Discussed and Chart Reviewed Final Anesthetic Review Family History of Problems with Anesthesia: No History of Problems with Anesthesia: No NPO: Yes ASA Class: III Final Preanesthetic Review: No Changes in Pt Med Stat, Meds/Allgs Chart Reviewed and Consent Obtained/Reviewed Patient Risk: Intermediate Procedure Risk: Intermediate Anesthetic Plan Anesthetic Plan: GA Disposition: Standard PACU
[2025-07-04 07:07] LABS: UPreg QC Valid YES
--- NOTE | 2025-07-04 07:23 | MHC.SHP ---
Pre-Procedural Eval Section A - 24 Hr Update-Section A only Date of Service: 07/04/25 The patient is an INPATIENT: No Section B - Complete if H&P > 30 days Chief Complaint: depression Details of Present Illness: ptsd recurrent depression some recent gi sx neg colonoscopy Allergies: Allergies Allergy/AdvReac Type Severity Reaction Status Date / Time carbamazepine (From TEGRETOL) AdvReac Mild Nausea and Verified 06/30/25 20:03 Vomiting topiramate (From Topamax) AdvReac Mild Nausea and Verified 06/30/25 20:03 Vomiting Review of Systems Sugical H&P ROS: Negative: Constitution, Neurological and Psychiatric Exam Surgical H&P Exam: Normal: HEENT, Normal: Extremities and Normal: Neurological Plan Diagnosis/Plan: Unchanged I have reviewed the history and physical and performed a pertinent physical examination on my patient. No changes have occurred unless specified. Time Spent With Patient Time: Total time managing care of this patient today ____ minutes.
--- NOTE | 2025-07-04 07:24 | HO.ECTPROC ---
ECT Procedure Note Diagnosis/Treatment Date of Service: 07/04/25 Diagnosis: Other (ptsd) Previous ECT Date: 06/06/25 Treatment: Maintenance Interval Clinical Notes: Patient continues to feel that ECT is eating full and helpful to her. This is a difficult time the year holidays always bring up issues related to abandonment. Patient feels her admissions and self-harming behavior have been decreased with ongoing ECT treatment no significant cognitive issues noted by the patient when seen alert cognitively intact no complaints tense have short seizures would suggest decreasing etomidate as tolerated Time: Total time managing care of this patient today _30___ minutes. ECT Settings Device: THYMATRON DGx Electrode Placement: Bitemporal Program/Pulse Width: 0.50 Energy Percent: 100 Seizure Duration By EEG (in seconds): 14 Medications Administration General Anesthetic: Etomidate (14) Muscle Relaxant: Succinylcholine (80) Airway Management Airway Management: Bag Mask Ventilation Treatment Recommendations Pt Tolerated Procedure w/o Issue: Yes
== END 2025-07-04 09:16 | disposition home or self-care (01) ==
PROVIDERS: PCP Nurse Practitioner Family; Visit Provider Psychiatry & Neurology Psychiatry
PROC: (CPT 90870; principal; 2025-07-04 07:00)
DX: F33.2 Major depressive disorder, recurrent severe without psychotic features (principal); F60.3 Borderline personality disorder; F43.10 Post-traumatic stress disorder, unspecified; Z91.51 Personal history of suicidal behavior; Z79.899 Other long term (current) drug therapy; Z88.8 Allergy status to other drugs, medicaments and biological substances; F17.210 Nicotine dependence, cigarettes, uncomplicated
CPT/HCPCS: 81025; 90870; J0330; J1642; J2405

== ENCOUNTER → 2025-07-04 05:44 | Outpatient (BNV) | payer OTHER, SELFPAY | PROVIDERS: PCP Nurse Practitioner Family; Visit Provider Psychiatry & Neurology Psychiatry | DX: F33.2 Major depressive disorder, recurrent severe without psychotic features (principal) | CPT/HCPCS: 90870 ==

== ENCOUNTER 2025-07-04 19:35 | Inpatient (IN) | payer OTHER, SELFPAY ==
--- OUTSIDE RECORDS SUMMARY | 2025-03-09 04:40 | XMS_ITS ---
Author Organization [facility] [employer] [facility] Address [address] [address] Care Team Providers Care Physical Trainer Name Role Phone JOSE ANTONIO MENON, COLETTE Primary Care Provider Adele Meier Unavailable [phone] REASON FOR VISIT Annual DEAN OF STUDENTS Physical Encounters Encounter Location Date Provider Diagnosis [facility] [employer] [facility] [address] [address] 03/09/2025 Adele Fairchild Plan Of Treatment No Information Progress Notes * MELISA THORNTONDOB:1985 (40 yo F)Acc No.[id number]:03/09/2025 Progress Note Patient: MELISA VIEIRA Appointment Provider: Jeffery Fiarchild M.D. :1985 A ge:39 Y S ex:Female Date:03/09/2025 Address:[address] [place], [place] [id number] Pcp:COLETTE BRADY NP Subjective: * Chief Complaints: * 1 . Annual DEAN OF STUDENTS Physical. * Medical History: Objective: * Vitals: Assessment: Plan: * Treatment: * Images: Billing Information: * Visit Code: * Procedure Codes: * Electronic signature of Leon Fairchild MD on 07/05/2025 at 05:26 AM EST Sign off status: Pending * Appointment Provider: Jeffery Fairchild M.D. Date: 0 03/09/2025 Generated for Lj marin/Jessika/Nickolasitting on: 09/04/2024 05:26 AM EST
--- OUTSIDE RECORDS SUMMARY | 2025-06-30 23:59 | XMS_ITS | Continuity of Care Document ---
Author Organization [facility] Address [address] [place] [address]- Support Name Relationship Address Phone THORNTON, CRYSTAL [...] Other Unknown Unavailable Care Team Providers Care Grid Molder Name Role Phone Hafsa Holcomb NP Primary Care Physician [place] [facility] [place]/25 [facility] [address], [place] [id number] Encounter Type: Triage Allergies, Adverse [...] Refills, Maintenance, 06/28/25 1:30:00 PM EST, Aerosol, [facility], Partial fill upon patient [...] 1 Refills, Maintenance, 03/08/25 4:02:00 PM EDT, [facility], 14, Apply twice daily to [...] Refills, Maintenance, 03/26/25 12:49:00 PM EDT, Tablet, [facility], Partial fill upon patient request if [...] 1 Refills, Maintenance, 04/18/25 10:40:00 AM EDT, [facility], 150, cm, 04/18/25 10:32:00 EDT, Height, [...] 3 Refills, Maintenance, 03/26/25 12:57:00 PM EDT, [facility], Partial fill upon patient request if [...] Refills, Maintenance, 05/11/24 3:03:00 PM EDT, Gel, [facility] [place], [place], Partial fill upon patient request if [...] Soft Stop, 05/28/25 10:28:00 AM EDT, Tablet, [facility], Partial fill upon patient request if the [...] Refills, Maintenance, 03/26/25 10:42:00 AM EDT, Nasal [place], [facility], Partial fill upon patient [...] Refills, Maintenance, 06/29/24 1:29:00 PM EST, Powder, [facility], [place], Partial fill upon patient request if the [...] EDT, 03/26/25 12:56:00 PM EDT, REC Powder, [facility], Partial fill upon patient request if [...] Refills, Maintenance, 05/08/25 10:22:00 AM EDT, Tablet, [facility], Partial fill upon patient request if [...] Maintenance, 03/26/25 12:49:00 PM EDT, EC Tablet, [facility], Partial fill upon patient request if [...] PM EDT, 05/17/25 12:59:00 PM EDT, Tablet, [facility], Partial fill upon patient [...] 0 Refills, Maintenance, 02/05/25 2:22:00 PM EDT, [place], [facility] - [place], [place], Partial fill upon patient request if the [...] Refills, Maintenance, 04/18/25 10:39:00 AM EDT, Aerosol, [facility], Partial fill upon patient [...] Team Personnel Name: Lynnette Veloz RN Position: [facility] Reji RN Member Role: Primary Care Nurse Name: Shaylee Schilling RN Position: [facility] RN Member Role: Primary Care Nurse Name: Arlen Charles RN Position: [facility] RN Member Role: Primary Care Nurse Name: Sofía Reno RN Position: [facility] IVANNA Nurse Member Role: Primary Care Nurse Name: Arlen Villarreal RN Position: [facility] IONA RN W/OE and Tasks Member Role: Primary Care Nurse Name: Hafsa Holcomb NP Position: [facility] PCO Associate Professional Member Role: PCP Address: [address] [place] [address] [address] [place] [address]- [place] Telecom: Name: Felicia Shaw RN Position: [facility] IONA RN W/OE and Tasks Member Role: Primary Care Nurse Name: Rosio Medrano RN Position: [facility] Nurse Member Role: Primary Care Nurse Name: Paige Turner RN Position: [facility] [place] Member Role: Primary Care Nurse Name: Kristie Haddad RN Position: [facility] RN Member Role: Primary Care Nurse Name: Venkat Hobson RN Position: [facility] [place] Member Role: Primary Care Nurse Name: Balbir Peace MD Position: [facility] Physician - Behavioral Health Member Role: [employer] Physician Address: [address] [place] [address] - Child Outpatient [address] Telecom: Care Team Related Persons Name: CORY HONG Name: VICENTA BECKMAN Name: STEVEN CAMPBELL Name: CHARLY THORNTON Name: GAVIN THORNTON Insurance Providers Guarantor name: Watsin Plan Information #: 1 Payer: [facility] Payer Identifier: RIMA Member Number: [id number] Group Number: [id number] Subscriber Identifier: RIMA Relationship to Subscriber: self Coverage Type: Medicaid (Managed Care) Coverage Verification Date: NA Telecom: NA Address:
[2025-07-04 19:43] VITALS: BP 138/88; PULSE 97; O2SAT 97; BMI 39.4
[2025-07-04 19:54] VITALS: BP 111/60; PULSE 84; RESP 18; TEMP 36.6; O2SAT 97
--- NOTE | 2025-07-04 20:11 | ED.PSYCH ---
HPI - Psych General Chief Complaint: Psychiatric Symptoms Stated Complaint: SI Time Seen by Provider: 07/04/25 20:03 History of Present Illness ED Provider: cortney HPI Narrative: 40 F with ?struggling for days ?- self reported. ?Im gonna bang my head until i get an infection. ? No acute medical symptoms PMH: MDD, Related Data Home Medications ?Medication ?Instructions ?Recorded ?Confirmed benztropine 0.5 mg tablet 0.5 mg PO BID 04/30/24 07/04/25 clonidine HCl 0.1 mg tablet 0.1 mg PO TID 04/30/24 07/04/25 omeprazole 20 mg capsule,delayed 20 mg PO Q OTHER DAY 04/30/24 07/04/25 release prazosin 5 mg capsule 15 mg PO BEDTIME 04/30/24 07/04/25 trazodone 100 mg tablet 200 mg PO BEDTIME insomnia 04/30/24 07/04/25 multivitamin 1 tab PO DAILY 05/17/24 07/04/25 zolpidem 10 mg tablet 10 mg PO BEDTIME insomnia 05/17/24 07/04/25 cholecalciferol (vitamin D3) 25 25 mcg PO DAILY 07/29/24 07/04/25 mcg (1,000 unit) tablet (Vitamin D3) haloperidol 5 mg tablet 5 mg PO TID 08/15/24 07/04/25 haloperidol decanoate 100 mg/mL 75 mg IM Q28D 08/15/24 07/04/25 intramuscular solution prazosin 1 mg capsule 1 mg PO BEDTIME 08/15/24 07/04/25 calcium 600 mg (as 1 tab PO BID 11/02/24 07/04/25 carbonate)-vitamin D3 10 mcg (400 unit) tablet fluticasone propionate 230 2 puff inhalation BID 11/02/24 07/04/25 mcg-salmeterol 21 mcg/actuation HFA inhaler (Advair HFA) cetirizine 10 mg tablet 10 mg PO DAILY 11/06/24 07/04/25 duloxetine 30 mg capsule,delayed 30 mg PO DAILY 11/06/24 07/04/25 release diphenhydramine HCl 50 mg capsule 100 mg PO BEDTIME insomnia 12/03/24 07/04/25 (Banophen) umeclidinium 62.5 mcg/actuation 1 inh inhalation DAILY 12/03/24 07/04/25 blister powder for inhalation (Incruse Ellipta) acetaminophen 500 mg tablet 500 mg PO Q6H PRN Pain/Fever 02/12/25 07/04/25 fluticasone propionate 50 2 spray intranasal DAILY 02/12/25 07/04/25 mcg/actuation nasal spray,suspension ibuprofen 600 mg tablet 600 mg PO TID PRN Pain 02/12/25 07/04/25 polyethylene glycol 3350 17 17 g PO DAILY PRN Constipation 02/12/25 07/04/25 gram/dose oral powder (Miralax) hydroxyzine HCl 50 mg tablet 50 mg PO DAILY PRN 06/28/25 07/04/25 Agitation/Anxiety lorazepam 1 mg tablet 1 mg PO TID anxiety/agitation 06/28/25 07/04/25 nicotine (polacrilex) 4 mg buccal 4 mg buccal Q2H PRN Smoking 07/01/25 07/04/25 lozenge Cessation ondansetron HCl 4 mg tablet 4 mg PO Q8H PRN Nausea And Vomiting 07/01/25 07/04/25 psyllium husk 0.4 gram capsule 0.8 g PO BID 07/05/25 07/05/25 (Reguloid (psyllium husk)) Previous Rx's ?Medication ?Instructions ?Recorded albuterol sulfate 90 mcg/actuation 2 puff inhalation Q4-6H PRN 08/30/24 aerosol inhaler shortness of breath or wheezing #6.7 grams duloxetine 60 mg capsule,delayed 60 mg PO DAILY 30 days #30 caps 10/03/24 release lithium carbonate 450 mg 900 mg (2 x 450 mg) PO BEDTIME 30 10/17/24 tablet,extended release days #60 tabs Allergies Allergy/AdvReac Type Severity Reaction Status Date / Time carbamazepine (From TEGRETOL) AdvReac Mild Nausea and Verified 07/04/25 19:45 Vomiting topiramate (From Topamax) AdvReac Mild Nausea and Verified 07/04/25 19:45 Vomiting PMFSH Past Medical History Medical History Depression Schizoaffective disorder, depressive type Depression with suicidal ideation MDD (major depressive disorder), recurrent, severe, with psychosis Port-A-Cath in place History of electroconvulsive therapy COVID-19 COVID-19 Sprain of left foot Chronic post-traumatic stress disorder (PTSD) COPD (chronic obstructive pulmonary disease) Increased BMI GERD (gastroesophageal reflux disease) Recurrent major depression-severe Acute post-traumatic stress disorder Injury, self-inflicted Suicidal ideation Self-harming behavior Intentional self-harm Suicidal ideation Borderline personality disorder Schizoaffective disorder Adjustment disorder Asthma Depression Anxiety PTSD (post-traumatic stress disorder) Family History Family History Mother Brain cancer Other No family history of cardiac disease Social History Social History Household Members: Other Household Members Other:: [employer] Housing: Other Housing Other:: [employer] Do you presently have visiting nurse or other home services: No Alcohol intake: never Patient Tobacco Use Status: Current everyday Tobacco user Tobacco use type: Cigarette Cigarette Packs Per Day: 0.5 Cigarettes Per Day: 10.0 Years Smoked: 20 e-Cigarette/Vaping Use: Never Used Second Hand Smoke Exposure: No Substance Use Type: Marijuana Advance Directives: No Advance Directives Information Provided: No Do you have a plan to hurt others: No Plan Nutrition Risks: No Nutritional Risk Patient : No service: No Current occupation: rt handed Sexual orientation: Straight/Heterosexual Physical Exam Exam: Exam: EXAM: Gen: Alert, awake, well appearing, well hydrated. Head: Atraumatic Eyes: Anicteric, Normal conjunctiva. ENT: Moist mucosa, no pallor. ? Neck: Supple. Skin: ?No observable rash or bruising on exposed or examined skin Respiratory: Breathing comfortably, No distress.Clear to auscultation bilaterally, symmetric chest expansion, No wheeze, rales, ronchi. Cardiovascular: Regular rate and rhythm. No murmurs or rub. Well perfused periphery, warm extremities. No edema. ? Abdominal: No focal tenderness. Soft, no objective distension. No palpable masses or obvious organomegaly. ?No guarding, no rebound tenderness or other peritoneal findings. : No flank tenderness. Neuro: Alert. Gross movement of all extremities intact. ?Cranial nerve testing not relevant to current presentation. gross facial symmetry Psych: Calm. Cooperative. Suicidal ideation nonpsychotic MSK: No grossly visible deformity. Vital signs: See flowsheet Vital Signs: Vital Signs: Last Vital Signs Temp 97.2 F 07/06/25 13:15 Pulse 105 H 07/06/25 13:15 Resp 18 07/06/25 13:15 BP 125/64 07/06/25 13:15 Pulse Ox 95 07/06/25 13:15 O2 Del Method Room Air 07/06/25 13:15 BMI result Body Mass Index 39.4 Course Reevaluation(s) Reevaluation #1: Time: 16:54 Date: 07/05/25 Provider: Shoaib Lyman MD Patient in physician observation for psychiatric evaluation.? No acute events reported overnight. No current complaints. VS stable.? Patient is in bed search status. Reevaluation #2: Time: 05:56 Date: 07/06/25 Provider: Cassandra Gonzales DO Patient in physician observation for psychiatric evaluation.? No acute events reported overnight. No current complaints. VS stable.? IPBS. Will continue to monitor. Reevaluation #3: Time: 12:36 Date: 07/06/25 Provider: Cassandra Gonzales DO Physician observation ended at 12:36 Patient to be admitted as inpatient to psychiatry Medications Administered Generic Name Dose Route Start Last Admin Trade Name Freq PRN Reason Stop Dose Admin Acetaminophen 650 mg 07/04/25 20:43 07/04/25 21:11 Acetaminophen 325 Mg Tablet PO 650 mg Q6H PRN Administration Pain Benztropine Mesylate 0.5 mg 07/04/25 21:00 07/06/25 09:01 Benztropine Mesylate 0.5 Mg Tablet PO 0.5 mg BID SULEIMAN Administration Calcium Carbonate/Cholecalciferol 250 mg 07/04/25 21:00 07/06/25 09:01 Calcium + Vitamin D 250 Mg Tablet PO 250 mg BID SULEIMAN Administration Clonidine HCl 0.1 mg 07/04/25 21:00 07/06/25 09:00 Clonidine Hcl 0.1 Mg Tablet PO 0.1 mg TID SULEIMAN Administration Protocol Diphenhydramine HCl 100 mg 07/04/25 21:00 07/05/25 20:11 Diphenhydramine Hcl 25 Mg Capsule PO 100 mg BEDTIME SULEIMAN Administration Duloxetine HCl 30 mg 07/04/25 20:45 07/06/25 09:00 Duloxetine Hcl 30 Mg Capsule.Dr PO 30 mg DAILY SULEIMAN Administration Duloxetine HCl 60 mg 07/04/25:45 07/06/25 09:00 Duloxetine Hcl 60 Mg Capsule. PO 60 mg DAILY SULEIMAN Administration Fluticasone Propionate 2 spray 07/04/25 20:45 07/06/25 08:59 Fluticasone Propionate Nasal 16 Gm [place] NOSTRIL-B 2 spray DAILY SULEIMAN Administration Fluticasone/Vilanterol 1 puff 07/05/25 08:00 07/06/25 08:59 Fluticasone/Vilanterol 200/25 Blst.W.Dev INHALE 1 puff RDAILY SULEIMAN Administration Haloperidol 5 mg 07/04/25 21:00 07/06/25 09:01 Haloperidol 5 Mg Tablet PO 5 mg TID SULEIMAN Administration Hydroxyzine HCl 50 mg 07/04/25 20:31 07/05/25 19:15 Hydroxyzine Hcl 50 Mg Tablet PO 50 mg DAILY PRN Administration mild anxiety Grady Carbonate 900 mg 07/04/25 21:00 07/05/25 20:13 Grady Carbonate Er 450 Mg Tablet.Er PO 900 mg BEDTIME SULEIMAN Administration Loratadine 10 mg 07/04/25 20:45 07/06/25 09:00 Loratadine 10 Mg Tablet PO 10 mg DAILY SULEIMAN Administration Lorazepam 1 mg 07/04/25 21:00 07/06/25 09:00 Lorazepam 1 Mg Tablet PO 1 mg TID SULEIMAN Administration Multivitamins/Vitamin C 1 tab 07/04/25 20:45 07/06/25 08:59 Multivitamin Tablet PO 1 tab DAILY SULEIMAN Administration Omeprazole 20 mg 07/05/25 06:30 07/05/25 11:08 Omeprazole 20 Mg Capsule.Dr PO 20 mg Q48H SULEIMAN Administration Prazosin HCl 1 mg 07/04/25 21:00 07/05/25 20:12 Prazosin Hcl 1 Mg Capsule PO 1 mg BEDTIME SULEIMAN Administration Protocol Prazosin HCl 15 mg 07/04/25 21:00 07/05/25 20:40 Prazosin Hcl 5 Mg Capsule PO 15 mg BEDTIME SULEIMAN Administration Protocol Tiotropium Whiteside 2 puff 07/05/25 08:00 07/06/25 08:59 Tiotropium Whiteside 2.5 Mcg 1 Puff/2.5 Mcg Mist.Inhal INHALE 2 puff RDAILY SULEIMAN Administration Trazodone HCl 200 mg 07/04/25 21:00 07/05/25 20:13 Trazodone Hcl 100 Mg Tablet PO 200 mg BEDTIME SULEIMAN Administration Vitamin D 25 mcg 07/04/25 20:45 07/06/25 09:00 Cholecalciferol (Vitamin D3) 25 Mcg Tablet PO 25 mcg DAILY SULEIMAN Administration Zolpidem Tartrate 10 mg 07/04/25 21:00 07/05/25 20:13 Zolpidem Tartrate 5 Mg Tablet PO 10 mg BEDTIME SULEIMAN Administration Medical Decision Making Medical Decision Making MDM Narrative: Medical Decision Making: [age] female with suicidal ideation chronic major depressive disorder PTSD Nonpsychotic. SI active. No acute medical issues Preliminary Favored Differential Diagnosis: [ ] among additional considered etiologies Testing Interpreted Independently: ?See below for details Radiology or Lab testing Results Reviewed: ?See below for details Consults: ?See below for details Independent Historians/External Chart Reviews: ?See below for details Social Determinants of Health Impacting MDM/Planning: ?See below for details Lab Data 07/04/25 20:47 07/04/25 20:47 Labs: Lab Results 07/04/25 07/04/25 Range/Units 19:58 20:47 WBC 9.7 (4.8-10.8) X10*3/uL RBC 4.13 L (4.20-5.50) X10*6/uL Hgb 12.1 (12.0-16.0) g/dl Hct 36.8 L (37.0-47.0) % MCV 89.1 (80.0-98.0) fL MCH 29.3 (27.0-33.0) pg MCHC 32.9 (31.0-35.0) g/dl RDW 13.0 (11.0-16.0) % Plt Count 254 (160-400) X10*3/uL MPV 11.3 (9.4-12.3) fL Immature Gran % (Auto) 0.4 (0.0-0.4) % Neut % (Auto) 75.8 H (45-73) % Lymph % (Auto) 15.8 L (20-40) % Davie % (Auto) 7.6 (2-11) % Eos % (Auto) 0.1 (0-4) % Baso % (Auto) 0.3 (0-2) % Lymph # (Auto) 1.5 (1.2-4.9) X10*3/uL Davie # (Auto) 0.7 (0.1-1.2) X10*3/uL Eos # (Auto) 0.0 (0.0-0.4) X10*3/uL Baso # (Auto) 0.0 (0.0-0.2) X10*3/uL Abs Immat Gran (auto) 0.04 H (0.00-0.03) X10*3/uL Absolute Neuts (auto) 7.3 (2.0-8.3) x10*3/uL Absolute Nucleated RBC 0.000 (0.0-0.012) X10*3/uL Nucleated RBC % (auto) 0.0 (0.0-0.2) /100WBC Sodium 137 (135-145) mmol/L Potassium 3.3 (3.3-5.1) mmol/L Chloride 107 (96-108) mmol/L Carbon Dioxide 19 L (22-29) mmol/L Anion Gap 14 (12-20) BUN 7 L (9-16) mg/dL Creatinine 0.78 (0.5-1.4) mg/dL Estim Creat Clear Calc 93.7 Estimated GFR > 60 Random Glucose 127 H (60-115) mg/dL Calcium 9.8 (8.4-10.2) mg/dL Total Bilirubin 0.3 (0.0-1.0) mg/dL AST 15 (5-31) U/L ALT 12 (0-31) U/L Alkaline Phosphatase 61 (39-117) U/L Total Protein 7.2 (6.5-8.0) g/dL Albumin 4.6 (3.5-5.0) g/dL Urine Color Yellow Urine Appearance Clear Urine pH 6.0 (5.0-9.0) Ur Specific [place] 1.010 (1.005-1.025) Urine Protein Negative (Neg-Trace) mg/dL Urine Glucose (UA) Negative (Negative) mg/dL Urine Ketones Negative (Negative) mg/dL Urine Blood Negative (Negative) Urine Nitrite Negative (Negative) Ur Leukocyte Esterase Negative (Negative) Urine RBC 0-2 (0-2) /HPF Urine WBC 0-5 (0-5) /HPF Ur Squamous Epith Cells 11-20 (0-2) /HPF Urine Bacteria 1+ (None Seen) Hyaline Casts 0-2 (0-2) /LPF Urine Test NEGATIVE (NEGATIVE) Urine Opiates Screen Not Detected (Not Detect) Ur Buprenorphine Scrn Not Detected (Not Detect) ng/mL Ur Oxycodone Screen Not Detected (Not Detect) ng/mL Urine Methadone Screen Not Detected (Not Detect) ng/mL Urine Fentanyl Screen Not Detected (Not Detect) Ur Barbiturates Screen Not Detected (Not Detect) Ur Phencyclidine Scrn Not Detected (Not Detect) Ur Amphetamines Screen Not Detected (Not Detect) U Benzodiazepines Scrn Not Detected (Not Detect) Urine Cocaine Screen Not Detected (Not Detect) U Marijuana (THC) Screen POSITIVE H (Not Detect) Ethyl Alcohol < 10 mg/dL Discharge Plan Discharge Clinical Impression: Suicidal ideation Patient Disposition: Admitted As Inpatient Interventions: Admission Worksheet (ED) Last Done: 07/06/25 13:10 Discharge Date/Time: 07/06/25 13:35
[2025-07-04 20:23] LABS: UPreg QC Valid YES
[2025-07-04 20:25] LABS: Cannabinoid Screen Urine POSITIVE (Not Detect)
[2025-07-04 20:37] LABS: Appearance Urine Clear; Glucose Urine UA Negative (Negative); PH 6.0 (5.0-9.0); Specific Gravity - Urine 1.010 (1.005-1.025)
[2025-07-04 20:56] LABS: MANUAL DIFF FLAG NO
[2025-07-04] MEDS: Calcium + Vitamin D 250 MG TABLET PO (20:57)
[2025-07-04 21:03] LABS: Hematocrit 36.8 % (37.0-47.0); Hemoglobin 12.1 g/dl (12.0-16.0); Imm Gran Abs Auto 0.04 X10*3/uL (0.00-0.03); Imm Gran Pct Auto 0.4 % (0.0-0.4); Lymphocytes Absolute Auto 1.5 X10*3/uL (1.2-4.9); Mean Corpuscular HGB Conc 32.9 g/dl (31.0-35.0); Mean Corpuscular Hemoglobin 29.3 pg (27.0-33.0); Mean Corpuscular Volume 89.1 fL (80.0-98.0); NRBC Abs Auto 0.000 X10*3/uL (0.0-0.012); NRBC Pct Auto 0.0 /100WBC (0.0-0.2); Platelet Count 254 X10*3/uL (160-400); Red Blood Count 4.13 X10*6/uL (4.20-5.50); White Blood Count 9.7 X10*3/uL (4.8-10.8)
[2025-07-04 21:23] LABS: Alanine Aminotransferase 12 U/L (0-31); Albumin Level 4.6 g/dL (3.5-5.0); Alkaline Phosphatase 61 U/L (39-117); Anion Gap 14 (12-20); Aspartate Amino Transferase 15 U/L (5-31); Blood Urea Nitrogen 7 mg/dL (9-16); Calcium 9.8 mg/dL (8.4-10.2); Carbon Dioxide 19 mmol/L (22-29); Chloride 107 mmol/L (96-108); Creatinine Clr Calc Pharmacy 93.7; Estimated Glomerular Filt Rate > 60; Potassium 3.3 mmol/L (3.3-5.1); Sodium 137 mmol/L (135-145); Total Protein 7.2 g/dL (6.5-8.0)
--- NOTE | 2025-07-05 02:22 | PC.NURSE ---
pt sleeping at this time.
--- OUTSIDE RECORDS SUMMARY | 2025-07-05 05:26 | XMS_ITS | Patient Health Record ---
Author Organization [facility] Address [address] [place] [address] Care Team Providers Care Bombsight Specialist Name Role Phone COLETTE BRADY NP Primary Care Provider Adele Meier Unavailable [phone] Reason For Referral No Information Encounters Encounter Location Date Provider Diagnosis [facility] [address] [place] [address] 03/09/2025 Adele Fairchild Plan Of Treatment No Information Insurance Providers Payer Name Payer Address Payer Phone Subscriber Number Group Number Insured Name Patient Relationship to Insured Coverage Start Date Coverage End Date [facility] [address] [place] [id number] MELISA THORNTON Self - patient is the insured
--- OUTSIDE RECORDS SUMMARY | 2025-07-05 05:26 | XMS_ITS | Clinical Summary ---
Author Organization [facility] Address [address] [place] [id number] Phone Care Team Providers Care Assistant Pastry Chef Name Role Phone Carroll Gaviria MD Primary [...] topic Medical Devices Not on file Insurance [place] [facility] [place] [employer] [employer] [facility] [facility] [place] [employer] [employer] [place] Member Subscriber Plan / Payer (Ef fective 2020-Present) Name:Stella Capps Relation to Subscriber:Self Name:Stella Capps Payer ID:[id number] Group ID:Not on file Type:Medicaid Address: [place] [address] [place] [address] [employer] [facility] [place] [facility] [employer] [facility] [place] [address] [address] [place] [address] [facility] [place] [facility] Care Teams Assistant Pastry Chef Relationship Specialty Start Date End Date Carroll Gaviria MD [address] [place] [id number] PCP - General Internal Medicine 12/20/23 Additional Source Comments The information contained in this document represents components of the legal health record. It is not the complete legal health record.[facility]
[2025-07-05 06:20] VITALS: RESP 16
--- NOTE | 2025-07-05 06:23 | PC.NURSE ---
pt was assist to the bathroom, walked back to room, cooperative, warm blanket given, sleeping the remainder of the night.
--- NOTE | 2025-07-05 08:02 | PC.NURSE ---
Assumed care of patient at 0645, patient appears to be in no apparent distress this am, sleeping, respirations even and unlabored. Continue plan of care for CARE team ar
--- NOTE | 2025-07-05 09:30 | PC.NURSE ---
Pharmacy omider texted for inhalers and flonase at this time
--- NOTE | 2025-07-05 09:53 | PC.NURSE ---
Patient is sleeping at this time, due to increased self-harming behaviors last night and inability to sleep, patient will not be disturbed for morning medications until she wakes up on her own
[2025-07-05] MEDS: Fluticasone/Vilanterol 200/25 BLST.W.DEV 1 PUFF INHALE (11:07)
[2025-07-05] MEDS: Tiotropium Bromide 2.5 mcg 1 PUFF/2.5 MCG MIST.INHAL 2 PUFF INHALE (11:07)
[2025-07-05] MEDS: Calcium + Vitamin D 250 MG TABLET PO ×2 (11:08→20:49)
--- NOTE | 2025-07-05 13:55 | PHA.MEDREC ---
Addendum entered by Bruce Junior PharmD 07/05/25 16:40: reviewed Addendum entered by Lamar Aleman 07/05/25 16:38: Verified med rec with list faxed over from patient senior living. Original Note: Pharmacy Consult ? Medication Reconciliation Pharmacy reviewed med rec done by nursing. Pt poor historian with her medications at this time but is a frequent flyer she states and we should have meds on file ; there is no DC PKT where a Med Rec was done with her since 12/2024. I utilized claims to confirm med rec; Reguloid (Daily Fiber) 4m tabs BID Lf 04/03 for 90 days, not included on med rec done by nursing, I added that on the list.
[2025-07-05 18:15] VITALS: BP 110/69; PULSE 67; RESP 18; TEMP 36.9; O2SAT 99
[2025-07-05 20:04] VITALS: BP 104/67; PULSE 88; RESP 18; TEMP 37.1; O2SAT 97
[2025-07-05 20:11] VITALS: BP 104/67
[2025-07-05 20:12] VITALS: BP 104/67
[2025-07-05 20:40] VITALS: BP 104/67
--- NOTE | 2025-07-06 | ECG_ITS ---
Test Reason : QTC CHECK Blood Pressure : */* mmHG Vent. Rate : 59 BPM Atrial Rate : 59 BPM P-R Int : 152 ms QRS Dur : 72 ms QT Int : 418 ms P-R-T Axes : 60 69 56 degrees QTcB Int : 413 ms Sinus bradycardia Nonspecific T wave abnormality Abnormal ECG When compared with ECG of 12-Feb-2025 11:01, No significant change was found Referred By: Clementina Layton Electronically Signed By: LIZET ANN
--- NOTE | 2025-07-06 06:56 | PC.NURSE ---
Assumed care of patient at 0645, patient appears to be in no apparent distress this morning, sleeping, respirations even and unlabored. Continue plan of care for IPLOC or CARE team follow up this am
--- NOTE | 2025-07-06 08:24 | MHC.EDTECH ---
Vital signs are not complete because the patient is still sleeping.
[2025-07-06] MEDS: Tiotropium Bromide 2.5 mcg 1 PUFF/2.5 MCG MIST.INHAL 2 PUFF INHALE (08:59)
[2025-07-06] MEDS: Fluticasone/Vilanterol 200/25 BLST.W.DEV 1 PUFF INHALE (08:59)
[2025-07-06] MEDS: Calcium + Vitamin D 250 MG TABLET PO ×2 (09:01→21:53)
[2025-07-06 09:37] VITALS: BP 116/67; PULSE 79; RESP 16; TEMP 36.5; O2SAT 98
[2025-07-06 13:15] VITALS: BP 125/64; PULSE 105; RESP 18; TEMP 36.2; O2SAT 95
[2025-07-06 14:00] VITALS: BMI 38.4
[2025-07-06 14:53] VITALS: BP 125/64
--- NOTE | 2025-07-06 16:05 | MHC.CLN ---
CONSULT NURSING ADMISSION RISK ASSESSMENT STATES 34# OR MORE WEIGHT LOSS. REVIEW OF WEIGHT HX SHOWS LARGE VARIANCE IN WEIGHTS X ONE YEAR WITH SOME WEIGHTS LIKELY INACCURATE. WEIGHT ON 07/30/24=86.7 KG AND IS APPROX EQUAL TO WEIGHT ON THIS ADMISSION 86.3 KG. DIET RX: REGULAR. BMI=38.4, OBESE. NO ADDITIONAL NUTRITION INTERVENTIONS AT THIS TIME.
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
[2025-07-06] MEDS: Flu Vacc TS2025-26(6mo up)/PF 0.5 ML SYRINGE IM (17:27)
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
[2025-07-06 21:41] VITALS: BP 109/59; PULSE 63; RESP 18; TEMP 36.3; O2SAT 98
[2025-07-07] MEDS: Calcium + Vitamin D 250 MG TABLET PO ×2 (09:58→20:19)
[2025-07-07 09:59] VITALS: BP 110/60
[2025-07-07 10:00] VITALS: BP 110/60; PULSE 58; RESP 18; TEMP 36.2; O2SAT 95
[2025-07-07] MEDS: Fluticasone/Vilanterol 200/25 BLST.W.DEV 1 PUFF INHALE (10:00)
[2025-07-07] MEDS: Tiotropium Bromide 2.5 mcg 1 PUFF/2.5 MCG MIST.INHAL 2 PUFF INHALE (10:00)
--- NOTE | 2025-07-07 10:17 | HO.PSYCHPN ---
Subjective Subjective Date of Service: 07/07/25 Reason For Visit: SI Subjective Notes: Conditional Voluntary Interim History: Patient was seen and discussed in rounds today. Records and plans were reviewed. She is a new admission and has continued to have self destructive thoughts. She was having a lot of head banging last evening and decision was made to place her on 09/05. She continues to have urges and suicidal ideations and will remain on 1:1. She has p.r.n. medications available. Review of Systems Review of Systems Yes Unobtainable due to mental status Mental Status Exam Mental Status Exam Narrative: Appearance: Lying in bed. Good eye contact. Grooming/hygiene wnl Attitude:Cooperative Speech: Childlike at times. Otherwise wnl Motor activity: Calm and without any tics, tremors or dyskinesias. Mood: depressed Affect: appropriate, generally constricted Thought process: goal directed and without evidence of formal thought disorder Thought content: endorses SI and thoughts of nonsuicidal self harm. Denies violent ideaiton Perception: Denies current AHVH and does not appear to respond to internal stimuli A/O x 3 Cognition grossly intact Insight: fair Judgment: fair Diagnostics Vital Signs (24Hr): Vital Signs - 24 hr 07/06/25 13:15 07/06/25 14:53 07/06/25 21:41 Temperature 97.2 F 97.3 F Pulse Rate 105 H 63 Respiratory Rate 18 18 Blood Pressure 125/64 125/64 109/59 L Pulse Oximetry 95 98 Oxygen Delivery Method Room Air Room Air 07/07/25 09:59 07/07/25 10:00 Temperature 97.2 F Pulse Rate 58 Respiratory Rate 18 Blood Pressure 110/60 110/60 Pulse Oximetry 95 Oxygen Delivery Method Room Air BMI result Body Mass Index 38.4 Labs 07/04/25 20:47 07/04/25 20:47 Medications Medications Current Medications Acetaminophen (Acetaminophen 325 Mg Tablet) 650 mg PO Q6H PRN PRN Reason: Pain Last Admin: 07/06/25 22:25 Dose: 650 mg Al Hydroxide/Mg Hydroxide (Magnesium Hydrox/Alum Hydrox 30 Ml Oral.Susp) 30 ml PO Q6H PRN PRN Reason: Heartburn/Nausea Albuterol Sulfate (Albuterol Sulfate 90 Mcg 8 Gm Inhaler) 2 puff INHALE RQ4H PRN PRN Reason: shortness of breath or wheezing Benztropine Mesylate (Benztropine Mesylate 0.5 Mg Tablet) 0.5 mg PO BID [facility] Last Admin: 07/07/25 09:58 Dose: 0.5 mg Calcium Carbonate/Cholecalciferol (Calcium + Vitamin D 250 Mg Tablet) 250 mg PO BID [facility] Last Admin: 07/07/25 09:58 Dose: 250 mg Clonidine HCl (Clonidine Hcl 0.1 Mg Tablet) 0.1 mg PO TID [facility]; Protocol Last Admin: 07/07/25 09:59 Dose: 0.1 mg Diphenhydramine HCl (Diphenhydramine Hcl 25 Mg Capsule) 100 mg PO BEDTIME [facility] Last Admin: 07/06/25 21:53 Dose: 100 mg Duloxetine HCl (Duloxetine Hcl 30 Mg Capsule.Dr) 30 mg PO DAILY [facility] Last Admin: 07/07/25 09:57 Dose: 30 mg Duloxetine HCl (Duloxetine Hcl 60 Mg Capsule.Dr) 60 mg PO DAILY [facility] Last Admin: 07/07/25 09:57 Dose: 60 mg Fluticasone Propionate (Fluticasone Propionate Nasal 16 Gm [place]) 2 spray NOSTRIL-B DAILY [facility] Last Admin: 07/07/25 10:00 Dose: 2 spray Fluticasone/Vilanterol (Fluticasone/Vilanterol 200/25 Blst.W.Dev) 1 puff INHALE RDAILY [facility] Last Admin: 07/07/25 10:00 Dose: 1 puff Haloperidol (Haloperidol 5 Mg Tablet) 5 mg PO TID [facility] Last Admin: 07/07/25 09:58 Dose: 5 mg Hydroxyzine HCl (Hydroxyzine Hcl 50 Mg Tablet) 50 mg PO DAILY PRN PRN Reason: mild anxiety Last Admin: 07/06/25 21:53 Dose: 50 mg Hydroxyzine HCl (Hydroxyzine Hcl 25 Mg Tablet) 25 mg PO Q6H PRN PRN Reason: mild anxiety Nibley Carbonate (Nibley Carbonate Er 450 Mg Tablet.Er) 900 mg PO BEDTIME [facility] Last Admin: 07/06/25 21:52 Dose: 900 mg Loratadine (Loratadine 10 Mg Tablet) 10 mg PO DAILY [facility] Last Admin: 07/07/25 09:58 Dose: 10 mg Lorazepam (Lorazepam 1 Mg Tablet) 1 mg PO TID [facility] Last Admin: 07/07/25 09:57 Dose: 1 mg Magnesium Hydroxide (Milk Of Magnesia 30 Ml Oral.Susp) 30 ml PO DAILY PRN PRN Reason: Constipation Multivitamins/Vitamin C (Multivitamin Tablet) 1 tab PO DAILY [facility] Last Admin: 07/07/25 09:57 Dose: 1 tab Nicotine Polacrilex (Nicotine Polacrilex Lozenge 4 Mg Lozenge) 4 mg BUCCAL Q2H PRN PRN Reason: Smoking Cessation Nicotine Polacrilex (Nicotine Polacrilex 2 Mg Gum) 4 mg BUCCAL Q2H PRN PRN Reason: Nicotine Cravings Omeprazole (Omeprazole 20 Mg Capsule.Dr) 20 mg PO Q48H [facility] Last Admin: 07/07/25 06:17 Dose: 20 mg Polyethylene Glycol (Polyethylene Glycol 3350 17 Gm Powd.Pack) 17 gm PO DAILY PRN PRN Reason: Constipation Prazosin HCl (Prazosin Hcl 1 Mg Capsule) 1 mg PO BEDTIME [facility]; Protocol Last Admin: 07/06/25 21:52 Dose: 1 mg Prazosin HCl (Prazosin Hcl 5 Mg Capsule) 15 mg PO BEDTIME [facility]; Protocol Last Admin: 07/06/25 21:52 Dose: 15 mg Tiotropium Carriere (Tiotropium Carriere 2.5 Mcg 1 Puff/2.5 Mcg Mist.Inhal) 2 puff INHALE RDAILY [facility] Last Admin: 07/07/25 10:00 Dose: 2 puff Trazodone HCl (Trazodone Hcl 100 Mg Tablet) 200 mg PO BEDTIME [facility] Last Admin: 07/06/25 21:52 Dose: 200 mg Trazodone HCl (Trazodone Hcl 50 Mg Tablet) 50 mg PO BEDTIME MRX1 PRN PRN Reason: Insomnia Last Admin: 07/06/25 21:53 Dose: 50 mg Vitamin D (Cholecalciferol (Vitamin D3) 25 Mcg Tablet) 25 mcg PO DAILY [facility] Last Admin: 07/07/25 09:59 Dose: 25 mcg Zolpidem Tartrate (Zolpidem Tartrate 5 Mg Tablet) 10 mg PO BEDTIME [facility] Last Admin: 07/06/25 21:52 Dose: 10 mg Allergies Allergies Allergy/AdvReac Type Severity Reaction Status Date / Time carbamazepine (From TEGRETOL) AdvReac Mild Nausea and Verified 07/04/25 19:45 Vomiting topiramate (From Topamax) AdvReac Mild Nausea and Verified 07/04/25 19:45 Vomiting Assessment & Plan Assessment & Plan (1) Borderline personality disorder: Status: Chronic Code(s): F60.3 - Borderline personality disorder (2) Major depressive disorder, recurrent, unspecified: Status: Acute Code(s): F33.9 - Major depressive disorder, recurrent, unspecified (3) Chronic post-traumatic stress disorder (PTSD): Status: Chronic Code(s): F43.12 - Post-traumatic stress disorder, chronic Plan Ms. Capps is a 40 y/o Georgian speaking F with h/o MDD, PTSD, borderline personality d/o, and multiple inpatient psychiatric admissions who presented to the [facility] after reporting to her skilled nursing that she was not feeling safe and cutting her wrists with a piece of glass. She was transferred to [facility] for safety and stabilization. Pt is known to [facility] from previous psychiatric admissions, most recently in December 2024, and she has been receiving maintenance ECT here. Pt is known to t/w from the ECT service at [facility] and previous [facility] admission. She has gone several months in the past without being hospitalized. The self-harming behaviors are chronic but have been less frequent when she has felt stable. June has been a difficult time of year since her sister was murdered in June 2019. Labs reviewed. Tox screen + for MJ, otherwise neg. EKG- 59 bpm, QTc 413 ms Plan: -Admitted to for safety and stabilization -Legal status- CV -5 minute safety checks due to ongoing thoughts of self harm, not feeling like she can keep herself safe on the unit. Will avoid 1:1 for now since it may reinforce the behavioral issues, which has been the case in the past when t/w worked with her. -Continue current home medications for now 07/07:Continue current regimen and plans Reason for continued inpatient stay Substantial Risk for: harm to self Time Spent With Patient Time: Total time managing care of this patient today ____ minutes.
[2025-07-07 15:18] VITALS: BP 81/54
--- NOTE | 2025-07-07 15:21 | PC.NURSE ---
Afternoon clonidine held due to BP of 81/54, Shravan Brewer MD made aware. Pt denies light headedness or dizziness.
[2025-07-07 19:53] VITALS: BP 142/60; PULSE 86; RESP 16; TEMP 36.7; O2SAT 97
--- NOTE | 2025-07-08 10:44 | P.PNPSI_ITS ---
Subjective Subjective Date of Service: 07/08/25 Reason For Visit: SI Subjective Notes: Conditional Voluntary Interim History: Patient was seen and discussed in rounds today. Records and plans were reviewed. She continues to need to be on want to on. No major self injurious behavior other than brief head banging last evening. She continues to be on 1-1 observation. Eating and sleeping adequately. No groups attended. In bed a lot. Continues to endorse SI. No changes were made today Review of Systems Review of Systems Yes all other systems are reviewed and are negative Mental Status Exam Mental Status Exam Narrative: She was in bed and refused to get up to be fully examined. Continues to endorse SI and self-injurious urges and command hallucinations Diagnostics Vital Signs (24Hr): Vital Signs - 24 hr 07/07/25 15:18 07/07/25 19:53 Temperature 98.0 F Pulse Rate 86 Respiratory Rate 16 Blood Pressure 81/54 L 142/60 H Pulse Oximetry 97 Oxygen Delivery Method Room Air BMI result Body Mass Index 38.4 Labs 07/04/25 20:47 07/04/25 20:47 Medications Medications Current Medications Acetaminophen (Acetaminophen 325 Mg Tablet) 650 mg PO Q6H PRN PRN Reason: Pain Last Admin: 07/07/25 20:19 Dose: 650 mg Al Hydroxide/Mg Hydroxide (Magnesium Hydrox/Alum Hydrox 30 Ml Oral.Susp) 30 ml PO Q6H PRN PRN Reason: Heartburn/Nausea Albuterol Sulfate (Albuterol Sulfate 90 Mcg 8 Gm Inhaler) 2 puff INHALE RQ4H PRN PRN Reason: shortness of breath or wheezing Benztropine Mesylate (Benztropine Mesylate 0.5 Mg Tablet) 0.5 mg PO BID [facility] Last Admin: 07/07/25 20:19 Dose: 0.5 mg Calcium Carbonate/Cholecalciferol (Calcium + Vitamin D 250 Mg Tablet) 250 mg PO BID [facility] Last Admin: 07/07/25 20:19 Dose: 250 mg Clonidine HCl (Clonidine Hcl 0.1 Mg Tablet) 0.1 mg PO TID [facility]; Protocol Last Admin: 07/07/25 20:18 Dose: 0.1 mg Diphenhydramine HCl (Diphenhydramine Hcl 25 Mg Capsule) 100 mg PO BEDTIME [facility] Last Admin: 07/07/25 20:19 Dose: 100 mg Duloxetine HCl (Duloxetine Hcl 30 Mg Capsule.Dr) 30 mg PO DAILY [facility] Last Admin: 07/07/25 09:57 Dose: 30 mg Duloxetine HCl (Duloxetine Hcl 60 Mg Capsule.Dr) 60 mg PO DAILY [facility] Last Admin: 07/07/25 09:57 Dose: 60 mg Fluticasone Propionate (Fluticasone Propionate Nasal 16 Gm [place]) 2 spray NOSTRIL-B DAILY [facility] Last Admin: 07/07/25 10:00 Dose: 2 spray Fluticasone/Vilanterol (Fluticasone/Vilanterol 200/25 Blst.W.Dev) 1 puff INHALE RDAILY [facility] Last Admin: 07/07/25 10:00 Dose: 1 puff Haloperidol (Haloperidol 5 Mg Tablet) 5 mg PO TID [facility] Last Admin: 07/07/25 20:18 Dose: 5 mg Hydroxyzine HCl (Hydroxyzine Hcl 50 Mg Tablet) 50 mg PO DAILY PRN PRN Reason: mild anxiety Last Admin: 07/07/25 20:18 Dose: 50 mg Hydroxyzine HCl (Hydroxyzine Hcl 25 Mg Tablet) 25 mg PO Q6H PRN PRN Reason: mild anxiety Last Admin: 07/07/25 18:02 Dose: 25 mg [place] Carbonate ([place] Carbonate Er 450 Mg Tablet.Er) 900 mg PO BEDTIME [facility] Last Admin: 07/07/25 20:18 Dose: 900 mg Loratadine (Loratadine 10 Mg Tablet) 10 mg PO DAILY [facility] Last Admin: 07/07/25 09:58 Dose: 10 mg Lorazepam (Lorazepam 1 Mg Tablet) 1 mg PO TID [facility] Last Admin: 07/07/25 20:18 Dose: 1 mg Magnesium Hydroxide (Milk Of Magnesia 30 Ml Oral.Susp) 30 ml PO DAILY PRN PRN Reason: Constipation Multivitamins/Vitamin C (Multivitamin Tablet) 1 tab PO DAILY [facility] Last Admin: 07/07/25 09:57 Dose: 1 tab Nicotine Polacrilex (Nicotine Polacrilex Lozenge 4 Mg Lozenge) 4 mg BUCCAL Q2H PRN PRN Reason: Smoking Cessation Nicotine Polacrilex (Nicotine Polacrilex 2 Mg Gum) 4 mg BUCCAL Q2H PRN PRN Reason: Nicotine Cravings Omeprazole (Omeprazole 20 Mg Capsule.Dr) 20 mg PO Q48H [facility] Last Admin: 07/07/25 06:17 Dose: 20 mg Polyethylene Glycol (Polyethylene Glycol 3350 17 Gm Powd.Pack) 17 gm PO DAILY PRN PRN Reason: Constipation Prazosin HCl (Prazosin Hcl 1 Mg Capsule) 1 mg PO BEDTIME [facility]; Protocol Last Admin: 07/07/25 20:17 Dose: 1 mg Prazosin HCl (Prazosin Hcl 5 Mg Capsule) 15 mg PO BEDTIME [facility]; Protocol Last Admin: 07/07/25 20:17 Dose: 15 mg Tiotropium [place] (Tiotropium [place] 2.5 Mcg 1 Puff/2.5 Mcg Mist.Inhal) 2 puff INHALE RDAILY [facility] Last Admin: 07/07/25 10:00 Dose: 2 puff Trazodone HCl (Trazodone Hcl 100 Mg Tablet) 200 mg PO BEDTIME [facility] Last Admin: 07/07/25 20:17 Dose: 200 mg Trazodone HCl (Trazodone Hcl 50 Mg Tablet) 50 mg PO BEDTIME MRX1 PRN PRN Reason: Insomnia Last Admin: 07/07/25 20:17 Dose: 50 mg Vitamin D (Cholecalciferol (Vitamin D3) 25 Mcg Tablet) 25 mcg PO DAILY [facility] Last Admin: 07/07/25 09:59 Dose: 25 mcg Zolpidem Tartrate (Zolpidem Tartrate 5 Mg Tablet) 10 mg PO BEDTIME [facility] Last Admin: 07/07/25 20:18 Dose: 10 mg Allergies Allergies Allergy/AdvReac Type Severity Reaction Status Date / Time carbamazepine (From TEGRETOL) AdvReac Mild Nausea and Verified 07/04/25 19:45 Vomiting topiramate (From Topamax) AdvReac Mild Nausea and Verified 07/04/25 19:45 Vomiting Assessment & Plan Assessment & Plan (1) Borderline personality disorder: Status: Chronic Code(s): F60.3 - Borderline personality disorder (2) Major depressive disorder, recurrent, unspecified: Status: Acute Code(s): F33.9 - Major depressive disorder, recurrent, unspecified (3) Chronic post-traumatic stress disorder (PTSD): Status: Chronic Code(s): F43.12 - Post-traumatic stress disorder, chronic Plan Ms. Capps is a 40 y/o [place]ar[place] speaking F with h/o MDD, PTSD, borderline personality d/o, and multiple inpatient psychiatric admissions who presented to the [facility] ED after reporting to her custodial that she was not feeling safe and cutting her wrists with a piece of glass. She was transferred to [facility] for safety and stabilization. Pt is known to [facility] from previous psychiatric admissions, most recently in December 2024, and she has been receiving maintenance ECT here. Pt is known to t/w from the ECT service at [facility] and previous [facility] admission. She has gone several months in the past without being hospitalized. The self-harming behaviors are chronic but have been less frequent when she has felt stable. November has been a difficult time of year since her sister was murdered in June 2019. Labs reviewed. Tox screen + for MJ, otherwise neg. EKG- 59 bpm, QTc 413 ms Plan: -Admitted to for safety and stabilization -Legal status- CV -5 minute safety checks due to ongoing thoughts of self harm, not feeling like she can keep herself safe on the unit. Will avoid 1:1 for now since it may reinforce the behavioral issues, which has been the case in the past when t/w worked with her. -Continue current home medications for now 07/07:Continue current regimen and plans 07/08:Continue current regimen and plans Reason for continued inpatient stay Substantial Risk for: med/psych decompensation Time Spent With Patient Time: Total time managing care of this patient today ____ minutes.
[2025-07-08 11:16] VITALS: BP 122/59; PULSE 76; RESP 16; TEMP 36.7; O2SAT 96
[2025-07-08] MEDS: Calcium + Vitamin D 250 MG TABLET PO ×2 (11:19→21:07)
[2025-07-08] MEDS: Fluticasone/Vilanterol 200/25 BLST.W.DEV 1 PUFF INHALE (11:21)
[2025-07-08] MEDS: Tiotropium Bromide 2.5 mcg 1 PUFF/2.5 MCG MIST.INHAL 2 PUFF INHALE (11:21)
[2025-07-08 15:58] VITALS: BP 128/71
[2025-07-08 20:00] VITALS: BP 110/60; PULSE 80; RESP 16; TEMP 36.3; O2SAT 97
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
[2025-07-09 10:00] VITALS: BP 105/59; PULSE 59; RESP 18; TEMP 36.4; O2SAT 95
[2025-07-09] MEDS: Calcium + Vitamin D 250 MG TABLET PO ×2 (10:01→20:21)
[2025-07-09] MEDS: Fluticasone/Vilanterol 200/25 BLST.W.DEV 1 PUFF INHALE (10:04)
[2025-07-09] MEDS: Tiotropium Bromide 2.5 mcg 1 PUFF/2.5 MCG MIST.INHAL 2 PUFF INHALE (10:06)
[2025-07-09 15:53] VITALS: BP 94/51
--- NOTE | 2025-07-09 18:40 | HO.PSYCHPN ---
Subjective Subjective Date of Service: 07/09/25 Reason For Visit: SI Subjective Notes: Conditional Voluntary Interim History: Chart reviewed. Case discussed with team Pt was switched to 1:1 on Wednesday night after significant head banging. Had another episode of head banging on Wednesday while on 1:1. Discussed plan in team to switch back to 5 min safety checks. Met w/ pt in her room, where she was asleep in bed. She reports ongoing SI and thoughts of self harm. States that the ideation has been better in the past during periods of stability. Pt endorses poor sleep, upset stomach, poor appetite. States that she generally stays in her room since the milieu is overstimulating. Pt shared that she was disappointed that she can't go to her mom's for Thanksgiving since she can't get transportation there (in [place]) and her mom can't afford the gas to pick her up. Pt reports that her mom is her only support. States that her fpc staff cut her off when she seeks support from them and she can't identify anything she likes about being there. Discussed traumatic loss of her sister. T/W had worked with her at [employer] was murdered. Pt used to be close to her nephew (sister's son) but lost contact w/ him after her sister . meds- taking as rx'd Pt feels like they're not helping and that she needs a new med for anxiety. Prior Med Trials per review of [facility] records- typical APs: thorazine, haldol atypical APs: risperdal, seroquel, Abilify, Geodon, Latuda stimulants: Concerta, Ritalin SSRIs: sertraline, escitalopram, citalopram TCAs: amitriptyline Mood stabilizers: Depakote, lithium, lamotrigine, carbamazepine, topiramate Benzos: clonazepam, temazepam, lorazepam antihypertensives- propranolol, prazosin, clonidine gabapentin Vistaril Hypnotics: Ambien Side effects from medications: No Attending Groups: No Diagnostics Vital Signs (24Hr): Vital Signs - 24 hr 07/08/25 20:00 07/09/25 10:00 07/09/25 15:53 Temperature 97.3 F 97.5 F Pulse Rate 80 59 Respiratory Rate 16 18 Blood Pressure 110/60 105/59 L 94/51 L Pulse Oximetry 97 95 Oxygen Delivery Method Room Air Room Air BMI result Body Mass Index 38.4 Labs 07/04/25 20:47 07/04/25 20:47 Medications Medications Current Medications Acetaminophen (Acetaminophen 325 Mg Tablet) 650 mg PO Q6H PRN PRN Reason: Pain Last Admin: 07/07/25 20:19 Dose: 650 mg Al Hydroxide/Mg Hydroxide (Magnesium Hydrox/Alum Hydrox 30 Ml Oral.Susp) 30 ml PO Q6H PRN PRN Reason: Heartburn/Nausea Albuterol Sulfate (Albuterol Sulfate 90 Mcg 8 Gm Inhaler) 2 puff INHALE RQ4H PRN PRN Reason: shortness of breath or wheezing Benztropine Mesylate (Benztropine Mesylate 0.5 Mg Tablet) 0.5 mg PO BID [facility] Last Admin: 07/09/25 10:01 Dose: 0.5 mg Calcium Carbonate/Cholecalciferol (Calcium + Vitamin D 250 Mg Tablet) 250 mg PO BID [facility] Last Admin: 07/09/25 10:01 Dose: 250 mg Clonidine HCl (Clonidine Hcl 0.1 Mg Tablet) 0.1 mg PO TID [facility]; Protocol Last Admin: 07/09/25 15:53 Dose: 0.1 mg Diphenhydramine HCl (Diphenhydramine Hcl 25 Mg Capsule) 100 mg PO BEDTIME [facility] Last Admin: 07/08/25 21:05 Dose: 100 mg Duloxetine HCl (Duloxetine Hcl 30 Mg Capsule.) 30 mg PO DAILY [facility] Last Admin: 07/09/25 10:03 Dose: 30 mg Duloxetine HCl (Duloxetine Hcl 60 Mg Capsule.) 60 mg PO DAILY [facility] Last Admin: 07/09/25 10:03 Dose: 60 mg Fluticasone Propionate (Fluticasone Propionate Nasal 16 Gm [place]) 2 spray NOSTRIL-B DAILY [facility] Last Admin: 07/09/25 10:04 Dose: 2 spray Fluticasone/Vilanterol (Fluticasone/Vilanterol 200/25 Blst.W.Dev) 1 puff INHALE RDAILY [facility] Last Admin: 07/09/25 10:04 Dose: 1 puff Haloperidol (Haloperidol 5 Mg Tablet) 5 mg PO TID [facility] Last Admin: 07/09/25 15:52 Dose: 5 mg Hydroxyzine HCl (Hydroxyzine Hcl 50 Mg Tablet) 50 mg PO DAILY PRN PRN Reason: mild anxiety Last Admin: 07/08/25 21:08 Dose: 50 mg Hydroxyzine HCl (Hydroxyzine Hcl 25 Mg Tablet) 25 mg PO Q6H PRN PRN Reason: mild anxiety Last Admin: 07/07/25 18:02 Dose: 25 mg [place] Carbonate ([place] Carbonate Er 450 Mg Tablet.Er) 900 mg PO BEDTIME [facility] Last Admin: 07/08/25 21:07 Dose: 900 mg Loratadine (Loratadine 10 Mg Tablet) 10 mg PO DAILY [facility] Last Admin: 07/09/25 10:01 Dose: 10 mg Lorazepam (Lorazepam 1 Mg Tablet) 1 mg PO TID [facility] Last Admin: 07/09/25 15:52 Dose: 1 mg Magnesium Hydroxide (Milk Of Magnesia 30 Ml Oral.Susp) 30 ml PO DAILY PRN PRN Reason: Constipation Multivitamins/Vitamin C (Multivitamin Tablet) 1 tab PO DAILY [facility] Last Admin: 07/09/25 10:02 Dose: 1 tab Nicotine Polacrilex (Nicotine Polacrilex Lozenge 4 Mg Lozenge) 4 mg BUCCAL Q2H PRN PRN Reason: Smoking Cessation Nicotine Polacrilex (Nicotine Polacrilex 2 Mg Gum) 4 mg BUCCAL Q2H PRN PRN Reason: Nicotine Cravings Omeprazole (Omeprazole 20 Mg Capsule.Dr) 20 mg PO Q48H [facility] Last Admin: 07/09/25 06:35 Dose: 20 mg Polyethylene Glycol (Polyethylene Glycol 3350 17 Gm Powd.Pack) 17 gm PO DAILY PRN PRN Reason: Constipation Prazosin HCl (Prazosin Hcl 1 Mg Capsule) 1 mg PO BEDTIME [facility]; Protocol Last Admin: 07/08/25 21:07 Dose: 1 mg Prazosin HCl (Prazosin Hcl 5 Mg Capsule) 15 mg PO BEDTIME [facility]; Protocol Last Admin: 07/08/25 21:08 Dose: 15 mg Tiotropium [place] (Tiotropium [place] 2.5 Mcg 1 Puff/2.5 Mcg Mist.Inhal) 2 puff INHALE RDAILY [facility] Last Admin: 07/09/25 10:06 Dose: 2 puff Trazodone HCl (Trazodone Hcl 100 Mg Tablet) 200 mg PO BEDTIME [facility] Last Admin: 07/08/25 21:06 Dose: 200 mg Trazodone HCl (Trazodone Hcl 50 Mg Tablet) 50 mg PO BEDTIME MRX1 PRN PRN Reason: Insomnia Last Admin: 07/07/25 20:17 Dose: 50 mg Vitamin D (Cholecalciferol (Vitamin D3) 25 Mcg Tablet) 25 mcg PO DAILY [facility] Last Admin: 07/09/25 10:02 Dose: 25 mcg Zolpidem Tartrate (Zolpidem Tartrate 5 Mg Tablet) 10 mg PO BEDTIME [facility] Last Admin: 07/08/25 21:06 Dose: 10 mg Allergies Allergies Allergy/AdvReac Type Severity Reaction Status Date / Time carbamazepine (From TEGRETOL) AdvReac Mild Nausea and Verified 07/04/25 19:45 Vomiting topiramate (From Topamax) AdvReac Mild Nausea and Verified 07/04/25 19:45 Vomiting Assessment & Plan Assessment & Plan (1) GERD (gastroesophageal reflux disease): Status: Acute Code(s): K21.9 - Gastro-esophageal reflux disease without esophagitis (2) Borderline personality disorder: Status: Chronic Code(s): F60.3 - Borderline personality disorder (3) Major depressive disorder, recurrent, unspecified: Status: Acute Code(s): F33.9 - Major depressive disorder, recurrent, unspecified (4) Chronic post-traumatic stress disorder (PTSD): Status: Chronic Code(s): F43.12 - Post-traumatic stress disorder, chronic Plan Ms. Capps is a 40 y/o Polish speaking F with h/o MDD, PTSD, borderline personality d/o, and multiple inpatient psychiatric admissions who presented to the [facility] after reporting to her fpc that she was not feeling safe and cutting her wrists with a piece of glass. She was transferred to [facility] for safety and stabilization. Pt is known to [facility] from previous psychiatric admissions, most recently in December 2024, and she has been receiving maintenance ECT here. Pt is known to t/w from the ECT service at [facility] and previous [facility] admission. She has gone several months in the past without being hospitalized. The self-harming behaviors are chronic but have been less frequent when she has felt stable. June has been a difficult time of year since her sister was murdered in June 2019. Labs reviewed. Tox screen + for MJ, otherwise neg. EKG- 59 bpm, QTc 413 ms Plan: -Admitted to [facility] for safety and stabilization -Legal status- CV -5 minute safety checks due to ongoing thoughts of self harm, not feeling like she can keep herself safe on the unit. Will avoid 1:1 for now since it may reinforce the behavioral issues, which has been the case in the past when t/w worked with her. -Continue current home medications for now 07/07:Continue current regimen and plans 07/08:Continue current regimen and plans 07/09: Pt has not engaged in any SIB today. Discussed plan w/ team to switch back to 5 min safety checks (done today). Reviewed pt's prior med trials (see below) from [facility] and [facility] records, in addition to receiving mECT for years. There is evidence to support the beneifit of clozapine in reducing self harming behaviors (in addition to being FDA approved for reducing suicidal behaviors in schizophrenia/schizoaffective d/o). T/W didn't see any h/o pt trying clozapine before. Will communicate with pt's outpatient psychiatrist about a potential clozapine trial, which could be done on an outpatient basis if pt is stable enough to return to her fpc this week. Will continue current med regimen for now. Prior Med Trials per review of [facility] and [facility] records- typical APs: thorazine, haldol atypical APs: risperdal, seroquel, Abilify, Geodon, Latuda stimulants: Concerta, Ritalin SSRIs: sertraline, escitalopram, citalopram TCAs: amitriptyline Mood stabilizers: Depakote, lithium, lamotrigine, carbamazepine, topiramate Benzos: clonazepam, temazepam, lorazepam antihypertensives- propranolol, prazosin, clonidine gabapentin Vistaril Hypnotics: Ambien Patient educated on: medication risk/benefits and therapeutic strategies Informed Consent: understands Reason for continued inpatient stay Substantial Risk for: harm to self and med/psych decompensation Time Spent With Patient Time: Total time managing care of this patient today ____ minutes.
[2025-07-09 20:00] VITALS: BP 182/100; PULSE 78; RESP 16; TEMP 36.2; O2SAT 100
[2025-07-10 08:00] VITALS: BP 86/48; PULSE 50; RESP 16; TEMP 36.3; O2SAT 99
[2025-07-10] MEDS: Calcium + Vitamin D 250 MG TABLET PO ×2 (08:50→20:01)
[2025-07-10] MEDS: Fluticasone/Vilanterol 200/25 BLST.W.DEV 1 PUFF INHALE (08:52)
[2025-07-10] MEDS: Tiotropium Bromide 2.5 mcg 1 PUFF/2.5 MCG MIST.INHAL 2 PUFF INHALE (08:52)
[2025-07-10 08:54] VITALS: BP 86/48
[2025-07-10 14:16] VITALS: BP 131/86
[2025-07-10 20:00] VITALS: BP 116/71; PULSE 92; RESP 16; TEMP 36.5; O2SAT 98
--- NOTE | 2025-07-10 21:14 | P.PNPSI_ITS ---
Subjective Subjective Date of Service: 07/10/25 Reason For Visit: SI Subjective Notes: Conditional Voluntary Interim History: Chart reviewed. case discussed with team Pt is on 5 min safety checks She asked multiple staff about d/c'ing today. TW informed her that she could d/c tomorrow if her longterm staff were agreeable. She then stated that she's on her period and she wants to leave the unit since she feels uncomfortable w/o pads. The [employer] student who accompanied t/w provided pt w/ pads and the pt asked the student if she could stay longer. Pt endorses thoughts of nonsuicidal self harm (chronic issue) She is future oriented. She reports that her aunt might be able to pick her up and bring her to her mom's to celebrate Thanksgiving, which she would like to do. Medication Compliance: Yes Side effects from medications: No Attending Groups: No Mental Status Exam Mental Status Exam Narrative: Appearance: In bed. disheveled. appears older than stated age. poor dentition. good eye contact Attitude:Cooperative Speech: childlike. otherwise wnl Motor activity: Calm and without any tics, tremors or dyskinesias. Mood: 'a little better' Affect: appropriate, reactive Thought process: goal directed and without evidence of formal thought disorder Thought content: Endorses passive SI and thoughts of self harm w/o any plan or intent. Denies violent ideation Perception: Denies AH/VH and does not appear to respond to internal stimuli Alert/oriented in all spheres Cognition grossly intact Insight: fair Judgment: fair Diagnostics Vital Signs (24Hr): Vital Signs - 24 hr 07/10/25 08:00 07/10/25 08:54 07/10/25 14:16 Temperature 97.4 F Pulse Rate 50 Respiratory Rate 16 Blood Pressure 86/48 L 86/48 L 131/86 Pulse Oximetry 99 Oxygen Delivery Method Room Air 07/10/25 20:00 Temperature 97.7 F Pulse Rate 92 Respiratory Rate 16 Blood Pressure 116/71 Pulse Oximetry 98 Oxygen Delivery Method Room Air BMI result Body Mass Index 38.4 Labs 07/04/25 20:47 07/04/25 20:47 Medications Medications Current Medications Acetaminophen (Acetaminophen 325 Mg Tablet) 650 mg PO Q6H PRN PRN Reason: Pain Last Admin: 07/10/25 14:16 Dose: 650 mg Al Hydroxide/Mg Hydroxide (Magnesium Hydrox/Alum Hydrox 30 Ml Oral.Susp) 30 ml PO Q6H PRN PRN Reason: Heartburn/Nausea Albuterol Sulfate (Albuterol Sulfate 90 Mcg 8 Gm Inhaler) 2 puff INHALE RQ4H PRN PRN Reason: shortness of breath or wheezing Benztropine Mesylate (Benztropine Mesylate 0.5 Mg Tablet) 0.5 mg PO BID [facility] Last Admin: 07/10/25 20:01 Dose: 0.5 mg Calcium Carbonate/Cholecalciferol (Calcium + Vitamin D 250 Mg Tablet) 250 mg PO BID [facility] Last Admin: 07/10/25 20:01 Dose: 250 mg Clonidine HCl (Clonidine Hcl 0.1 Mg Tablet) 0.1 mg PO TID [facility]; Protocol Last Admin: 07/10/25 20:01 Dose: 0.1 mg Diphenhydramine HCl (Diphenhydramine Hcl 25 Mg Capsule) 100 mg PO BEDTIME [facility] Last Admin: 07/10/25 20:01 Dose: 100 mg Duloxetine HCl (Duloxetine Hcl 30 Mg Capsule.Dr) 30 mg PO DAILY [facility] Last Admin: 07/10/25 08:51 Dose: 30 mg Duloxetine HCl (Duloxetine Hcl 60 Mg Capsule.Dr) 60 mg PO DAILY [facility] Last Admin: 07/10/25 08:50 Dose: 60 mg Fluticasone Propionate (Fluticasone Propionate Nasal 16 Gm [place]) 2 spray NOSTRIL-B DAILY [facility] Last Admin: 07/10/25 08:52 Dose: 2 spray Fluticasone/Vilanterol (Fluticasone/Vilanterol 200/25 Blst.W.Dev) 1 puff INHALE RDAILY [facility] Last Admin: 07/10/25 08:52 Dose: 1 puff Haloperidol (Haloperidol 5 Mg Tablet) 5 mg PO TID [facility] Last Admin: 07/10/25 20:01 Dose: 5 mg Hydroxyzine HCl (Hydroxyzine Hcl 50 Mg Tablet) 50 mg PO DAILY PRN PRN Reason: mild anxiety Last Admin: 07/08/25 21:08 Dose: 50 mg Hydroxyzine HCl (Hydroxyzine Hcl 25 Mg Tablet) 25 mg PO Q6H PRN PRN Reason: mild anxiety Last Admin: 07/09/25 20:21 Dose: 25 mg Ibuprofen (Ibuprofen 600 Mg Tablet) 600 mg PO Q8H PRN PRN Reason: Menstrual Cramps Last Admin: 07/10/25 20:02 Dose: 600 mg [place] Carbonate ([place] Carbonate Er 450 Mg Tablet.Er) 900 mg PO BEDTIME [facility] Last Admin: 07/10/25 20:01 Dose: 900 mg Loratadine (Loratadine 10 Mg Tablet) 10 mg PO DAILY [facility] Last Admin: 07/10/25 08:49 Dose: 10 mg Lorazepam (Lorazepam 1 Mg Tablet) 1 mg PO TID [facility] Last Admin: 07/10/25 20:01 Dose: 1 mg Magnesium Hydroxide (Milk Of Magnesia 30 Ml Oral.Susp) 30 ml PO DAILY PRN PRN Reason: Constipation Multivitamins/Vitamin C (Multivitamin Tablet) 1 tab PO DAILY [facility] Last Admin: 07/10/25 08:50 Dose: 1 tab Nicotine Polacrilex (Nicotine Polacrilex Lozenge 4 Mg Lozenge) 4 mg BUCCAL Q2H PRN PRN Reason: Smoking Cessation Nicotine Polacrilex (Nicotine Polacrilex 2 Mg Gum) 4 mg BUCCAL Q2H PRN PRN Reason: Nicotine Cravings Omeprazole (Omeprazole 20 Mg Capsule.Dr) 20 mg PO Q48H [facility] Last Admin: 07/09/25 06:35 Dose: 20 mg Polyethylene Glycol (Polyethylene Glycol 3350 17 Gm Powd.Pack) 17 gm PO DAILY PRN PRN Reason: Constipation Prazosin HCl (Prazosin Hcl 1 Mg Capsule) 1 mg PO BEDTIME [facility]; Protocol Last Admin: 07/10/25 20:01 Dose: 1 mg Prazosin HCl (Prazosin Hcl 5 Mg Capsule) 15 mg PO BEDTIME [facility]; Protocol Last Admin: 07/10/25 20:02 Dose: 15 mg Tiotropium [place] (Tiotropium [place] 2.5 Mcg 1 Puff/2.5 Mcg Mist.Inhal) 2 puff INHALE RDAILY [facility] Last Admin: 07/10/25 08:52 Dose: 2 puff Trazodone HCl (Trazodone Hcl 100 Mg Tablet) 200 mg PO BEDTIME [facility] Last Admin: 07/10/25 20:02 Dose: 200 mg Trazodone HCl (Trazodone Hcl 50 Mg Tablet) 50 mg PO BEDTIME MRX1 PRN PRN Reason: Insomnia Last Admin: 07/07/25 20:17 Dose: 50 mg Vitamin D (Cholecalciferol (Vitamin D3) 25 Mcg Tablet) 25 mcg PO DAILY [facility] Last Admin: 07/10/25 08:51 Dose: 25 mcg Zolpidem Tartrate (Zolpidem Tartrate 5 Mg Tablet) 10 mg PO BEDTIME [facility] Last Admin: 07/10/25 20:02 Dose: 10 mg Allergies Allergies Allergy/AdvReac Type Severity Reaction Status Date / Time carbamazepine (From TEGRETOL) AdvReac Mild Nausea and Verified 07/04/25 19:45 Vomiting topiramate (From Topamax) AdvReac Mild Nausea and Verified 07/04/25 19:45 Vomiting Assessment & Plan Assessment & Plan (1) Borderline personality disorder: Status: Chronic Code(s): F60.3 - Borderline personality disorder (2) Major depressive disorder, recurrent, unspecified: Status: Acute Code(s): F33.9 - Major depressive disorder, recurrent, unspecified (3) Chronic post-traumatic stress disorder (PTSD): Status: Chronic Code(s): F43.12 - Post-traumatic stress disorder, chronic Plan Ms. Capps is a 40 y/o Fijian speaking F with h/o MDD, PTSD, borderline personality d/o, and multiple inpatient psychiatric admissions who presented [place] [facility] [place] after reporting to her longterm that she was not feeling safe and cutting her wrists with a piece of glass. She was transferred to [facility] for safety and stabilization. Pt is known to [facility] from previous psychiatric admissions, most recently in December 2024, and she has been receiving maintenance ECT here. Pt is known to t/w from the ECT service at [facility] and previous [facility] admission. She has gone several months in the past without being hospitalized. The self-harming behaviors are chronic but have been less frequent when she has felt stable. June has been a difficult time of year since her sister was murdered in June 2019. Labs reviewed. Tox screen + for MJ, otherwise neg. EKG- 59 bpm, QTc 413 ms Plan: -Admitted to for safety and stabilization -Legal status- CV -5 minute safety checks due to ongoing thoughts of self harm, not feeling like she can keep herself safe on the unit. Will avoid 1:1 for now since it may reinforce the behavioral issues, which has been the case in the past when t/w worked with her. -Continue current home medications for now 07/07:Continue current regimen and plans 07/08:Continue current regimen and plans 07/09: Pt has not engaged in any SIB today. Discussed plan w/ team to switch back to 5 min safety checks (done today). Reviewed pt's prior med trials (see below) from [facility], in addition to receiving mECT for years. There is evidence to support the beneifit of clozapine in reducing self harming behaviors (in addition to being FDA approved for reducing suicidal behaviors in schizophrenia/schizoaffective d/o). T/W didn't see any h/o pt trying clozapine before. Will communicate with pt's outpatient psychiatrist about a potential clozapine trial, which could be done on an outpatient basis if pt is stable enough to return to her longterm this week. Will continue current med regimen for now. 07/10: Pt seems to be at her baseline. She has ongoing thoughts of self harm (chronic issue) and passive SI but is future oriented and looking forward to visiting her mother for Thanksgiving if she can get transportation there. She feels safe with this plan. Will d/c tomorrow Prior Med Trials per review of [facility] records- typical APs: thorazine, haldol atypical APs: risperdal, seroquel, Abilify, Geodon, Latuda stimulants: Concerta, Ritalin SSRIs: sertraline, escitalopram, citalopram TCAs: amitriptyline Mood stabilizers: Depakote, lithium, lamotrigine, carbamazepine, topiramate Benzos: clonazepam, temazepam, lorazepam antihypertensives- propranolol, prazosin, clonidine gabapentin Vistaril Hypnotics: Ambien Reason for continued inpatient stay Substantial Risk for: med/psych decompensation Time Spent With Patient Time: Total time managing care of this patient today ____ minutes.
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
[2025-07-11 08:00] VITALS: BP 117/82; PULSE 73; RESP 16; TEMP 36.2; O2SAT 98
[2025-07-11] MEDS: Calcium + Vitamin D 250 MG TABLET PO (08:59)
[2025-07-11 09:00] VITALS: BP 117/82
[2025-07-11] MEDS: Tiotropium Bromide 2.5 mcg 1 PUFF/2.5 MCG MIST.INHAL 2 PUFF INHALE (09:04)
--- NOTE | 2025-07-13 05:09 | PM.PSYDC ---
DS: Providers Provider Date of Service: 07/11/25 Date of admission: 07/06/25 12:25 Date of discharge: 07/11/25 Primary care physician: Hafsa Holcomb NP Attending physician on admission: Clementina Layton Consults: 07/04/25 23:43 ED CARE Team Crisis Consult Stat Comment: Reason for consultation: si Has provider been notified: Yes Attending physician on discharge: Clementina Layton DS: Diagnosis Discharge Diagnosis (1) Borderline personality disorder: Status: Chronic (2) Major depressive disorder, recurrent, unspecified: Status: Acute (3) Chronic post-traumatic stress disorder (PTSD): Status: Chronic DS: Medications Discharge Medications Home Medications: Home Medications ?Medication ?Instructions ?Recorded ?Confirmed omeprazole 20 mg capsule,delayed 20 mg PO Q OTHER DAY 04/30/24 07/04/25 release multivitamin 1 tab PO DAILY 05/17/24 07/04/25 cholecalciferol (vitamin D3) 25 25 mcg PO DAILY 07/29/24 07/04/25 mcg (1,000 unit) tablet (Vitamin D3) haloperidol decanoate 100 mg/mL 75 mg IM Q28D 08/15/24 07/04/25 intramuscular solution calcium 600 mg (as 1 tab PO BID 11/02/24 07/04/25 carbonate)-vitamin D3 10 mcg (400 unit) tablet fluticasone propionate 230 2 puff inhalation BID 11/02/24 07/04/25 mcg-salmeterol 21 mcg/actuation HFA inhaler (Advair HFA) cetirizine 10 mg tablet 10 mg PO DAILY 11/06/24 07/04/25 diphenhydramine HCl 50 mg capsule 100 mg PO BEDTIME insomnia 12/03/24 07/04/25 (Banophen) umeclidinium 62.5 mcg/actuation 1 inh inhalation DAILY 12/03/24 07/04/25 blister powder for inhalation (Incruse Ellipta) acetaminophen 500 mg tablet 500 mg PO Q6H PRN Pain/Fever 02/12/25 07/04/25 fluticasone propionate 50 2 spray intranasal DAILY 02/12/25 07/04/25 mcg/actuation nasal spray,suspension ibuprofen 600 mg tablet 600 mg PO TID PRN Pain 02/12/25 07/04/25 polyethylene glycol 3350 17 17 g PO DAILY PRN Constipation 02/12/25 07/04/25 gram/dose oral powder (Miralax) nicotine (polacrilex) 4 mg buccal 4 mg buccal Q2H PRN Smoking 07/01/25 07/04/25 lozenge Cessation ondansetron HCl 4 mg tablet 4 mg PO Q8H PRN Nausea And Vomiting 07/01/25 07/04/25 Previous Rx's ?Medication ?Instructions ?Recorded albuterol sulfate 90 mcg/actuation 2 puff inhalation Q4-6H PRN 08/30/24 aerosol inhaler shortness of breath or wheezing #6.7 grams benztropine 0.5 mg tablet 0.5 mg PO BID 30 days #60 tabs 07/11/25 clonidine HCl 0.1 mg tablet 0.1 mg PO TID 30 days #90 tabs 07/11/25 duloxetine 30 mg capsule,delayed 30 mg PO DAILY 30 days #30 caps 07/11/25 release duloxetine 60 mg capsule,delayed 60 mg PO DAILY 30 days #30 caps 07/11/25 release haloperidol 5 mg tablet 5 mg PO TID 30 days #90 tabs 07/11/25 hydroxyzine HCl 50 mg tablet 50 mg PO DAILY PRN mild anxiety 30 07/11/25 days #30 tabs lithium carbonate 450 mg 900 mg (2 x 450 mg) PO BEDTIME 30 07/11/25 tablet,extended release days #60 tabs lorazepam 1 mg tablet 1 mg PO TID 30 days #90 tabs 07/11/25 prazosin 1 mg capsule 1 mg PO BEDTIME 30 days #30 caps 07/11/25 prazosin 5 mg capsule 15 mg PO BEDTIME 30 days #90 caps 07/11/25 trazodone 100 mg tablet 200 mg (2 x 100 mg) PO BEDTIME 30 07/11/25 days #60 tabs zolpidem 10 mg tablet 10 mg PO BEDTIME PRN insomnia 30 07/11/25 days #30 tabs DS: Summary Time Spent with Patient Time attestation: Total time managing care of this patient today ____ minutes. Discharge Plan Discharge Anticipated Discharge Date/Time: 07/11/25 08:29 Patient Disposition: Home, Self-Care Discharge Diagnosis: Borderline personality disorder Major depressive disorder, recurrent, moderate PTSD Referrals: [facility] (Psychiatry) [Other] - 12/12/25 11:00 am Referral Note: IN OFFICE APPOINTMENT Hafsa Holcomb NP [Primary Care Provider, Medical] - 1 Week Referral Note: 07-10-25 Your primary care provider has been notified of your discharge and will make contact with you to schedule the date and time of your follow up appt. Discharge Medications: New clonidine HCl 0.1 mg Tablet 0.1 mg PO TID 30 Days Qty: 90 0RF Protocol: Hold for SBP< HOLD for SBP < : 90 prazosin 1 mg Capsule 1 mg PO BEDTIME 30 Days Qty: 30 0RF Protocol: Hold for SBP< HOLD for SBP < : 90 benztropine 0.5 mg Tablet 0.5 mg PO BID 30 Days Qty: 60 0RF prazosin 5 mg Capsule 15 mg PO BEDTIME 30 Days Qty: 90 0RF Protocol: Hold for SBP< HOLD for SBP < : 90 haloperidol 5 mg Tablet 5 mg PO TID 30 Days Qty: 90 0RF hydroxyzine HCl 50 mg Tablet 50 mg PO DAILY PRN (Reason: mild anxiety) 30 Days Qty: 30 0RF lithium carbonate 450 mg Tablet Extended Release 900 mg PO BEDTIME 30 Days Qty: 60 0RF lorazepam 1 mg Tablet 1 mg PO TID 30 Days Qty: 90 0RF trazodone 100 mg Tablet 200 mg PO BEDTIME 30 Days Qty: 60 0RF zolpidem 10 mg tablet 10 mg PO BEDTIME PRN (Reason: insomnia) 30 Days Qty: 30 0RF Continued omeprazole 20 mg capsule,delayed release(DR/EC) 20 mg PO Q OTHER DAY cholecalciferol (vitamin D3) [Vitamin D3] 25 mcg (1,000 unit) tablet 25 mcg PO DAILY haloperidol decanoate 100 mg/mL solution 75 mg IM Q28D albuterol sulfate 90 mcg/actuation HFA aerosol inhaler 2 puff inhalation Q4-6H PRN (Reason: shortness of breath or wheezing) Qty: 6.7 0RF diphenhydramine HCl [Banophen] 50 mg capsule 100 mg PO BEDTIME Incruse Ellipta 62.5 mcg/actuation blister with device 1 inh INHALATION DAILY acetaminophen 500 mg Tablet 500 mg PO Q6H PRN (Reason: Pain/Fever) ibuprofen 600 mg Tablet 600 mg PO TID PRN (Reason: Pain) polyethylene glycol 3350 [Miralax] 17 gram/dose Powder 17 g PO DAILY PRN (Reason: Constipation) fluticasone propionate 50 mcg/actuation spray,suspension 2 spray intranasal DAILY ondansetron HCl 4 mg tablet 4 mg PO Q8H PRN (Reason: Nausea And Vomiting) nicotine (polacrilex) 4 mg Lozenge 4 mg BUCCAL Q2H PRN (Reason: Smoking Cessation) duloxetine 30 mg capsule,delayed release(DR/EC) 30 mg PO DAILY 30 Days Qty: 30 0RF duloxetine 60 mg capsule,delayed release(DR/EC) 60 mg PO DAILY 30 Days Qty: 30 0RF Rx Instructions: take with 30mg capsule multivitamin Tablet 1 tab PO DAILY fluticasone propion-salmeterol [Advair HFA] 230-21 mcg/actuation HFA aerosol inhaler 2 puff INHALATION BID calcium carbonate-vitamin D3 600 mg-10 mcg (400 unit) tablet 1 tab PO BID cetirizine 10 mg tablet 10 mg PO DAILY Discontinued clonidine HCl 0.1 mg tablet 0.1 mg PO TID Rx Instructions: takes at 0800, 1400 and 2000 benztropine 0.5 mg tablet 0.5 mg PO BID prazosin 5 mg capsule 15 mg PO BEDTIME trazodone 100 mg tablet 200 mg PO BEDTIME haloperidol 5 mg tablet 5 mg PO TID prazosin 1 mg capsule 1 mg PO BEDTIME Protocol: Hold for SBP< HOLD for SBP < : 90 Rx Instructions: Take together with 2 5mg tabs for a TDD of 16mg. psyllium husk [Reguloid (psyllium husk)] 0.4 gram capsule 0.8 g PO BID zolpidem 10 mg tablet 10 mg PO BEDTIME lithium carbonate 450 mg Tablet Extended Release 900 mg PO BEDTIME 30 Days Qty: 60 0RF hydroxyzine HCl 50 mg tablet 50 mg PO DAILY PRN (Reason: Agitation/Anxiety) lorazepam 1 mg tablet 1 mg PO TID Discharge Orders: Discharge Order (Routine); Ordered 07/11/25 Ordered By: Clementina Layton Diet: Regular diet Activity on Discharge: No Restrictions Stand Alone Forms: Patient Portal Discharge page, Community Support Print Language: Malawian Care Plan Goals: Maintain safe behaviors Practice coping skills Take medications as prescribed Maintain regular follow-ups with your outpatient providers Health Concerns: Mood stability and behaviors Plan of Treatment: Follow up with your psychiatric provider, PCP and other outpatient providers Take your medication as prescribed Assessment: Risk assessment at the time of discharge: Patient was interviewed on the day of discharge and found to be fully oriented, without any SI or violent ideation. Pt has improved insight and judgment and plans to continue treatment Pt is not at imminent risk of harm to self or others and has a safety plan that includes presenting to the closest ER or calling 911 if feeling unsafe. Pt has been observed closely by unit staff and has not engaged in any behaviors that suggest dangerous to self or others and has demonstrated appropriate bheaviors and impulse control. Discharge Date/Time: 07/11/25 10:03
--- NOTE | 2025-07-13 05:12 | PM.PSYDC ---
DS: Providers Provider Date of Service: 07/11/25 Date of admission: 07/06/25 12:25 Date of discharge: 07/11/25 Primary care physician: Hafsa Holcomb NP Attending physician on admission: Clementina Layton Consults: 07/04/25 23:43 ED CARE Team Crisis Consult Stat Comment: Reason for consultation: si Has provider been notified: Yes Attending physician on discharge: Clementina Layton DS: Diagnosis Discharge Diagnosis (1) Borderline personality disorder: Status: Chronic (2) Major depressive disorder, recurrent, unspecified: Status: Acute (3) Chronic post-traumatic stress disorder (PTSD): Status: Chronic DS: Medications Discharge Medications Home Medications: Home Medications ?Medication ?Instructions ?Recorded ?Confirmed omeprazole 20 mg capsule,delayed 20 mg PO Q OTHER DAY 04/30/24 07/04/25 release multivitamin 1 tab PO DAILY 05/17/24 07/04/25 cholecalciferol (vitamin D3) 25 25 mcg PO DAILY 07/29/24 07/04/25 mcg (1,000 unit) tablet (Vitamin D3) haloperidol decanoate 100 mg/mL 75 mg IM Q28D 08/15/24 07/04/25 intramuscular solution calcium 600 mg (as 1 tab PO BID 11/02/24 07/04/25 carbonate)-vitamin D3 10 mcg (400 unit) tablet fluticasone propionate 230 2 puff inhalation BID 11/02/24 07/04/25 mcg-salmeterol 21 mcg/actuation HFA inhaler (Advair HFA) cetirizine 10 mg tablet 10 mg PO DAILY 11/06/24 07/04/25 diphenhydramine HCl 50 mg capsule 100 mg PO BEDTIME insomnia 12/03/24 07/04/25 (Banophen) umeclidinium 62.5 mcg/actuation 1 inh inhalation DAILY 12/03/24 07/04/25 blister powder for inhalation (Incruse Ellipta) acetaminophen 500 mg tablet 500 mg PO Q6H PRN Pain/Fever 02/12/25 07/04/25 fluticasone propionate 50 2 spray intranasal DAILY 02/12/25 07/04/25 mcg/actuation nasal spray,suspension ibuprofen 600 mg tablet 600 mg PO TID PRN Pain 02/12/25 07/04/25 polyethylene glycol 3350 17 17 g PO DAILY PRN Constipation 02/12/25 07/04/25 gram/dose oral powder (Miralax) nicotine (polacrilex) 4 mg buccal 4 mg buccal Q2H PRN Smoking 07/01/25 07/04/25 lozenge Cessation ondansetron HCl 4 mg tablet 4 mg PO Q8H PRN Nausea And Vomiting 07/01/25 07/04/25 Previous Rx's ?Medication ?Instructions ?Recorded albuterol sulfate 90 mcg/actuation 2 puff inhalation Q4-6H PRN 08/30/24 aerosol inhaler shortness of breath or wheezing #6.7 grams benztropine 0.5 mg tablet 0.5 mg PO BID 30 days #60 tabs 07/11/25 clonidine HCl 0.1 mg tablet 0.1 mg PO TID 30 days #90 tabs 07/11/25 duloxetine 30 mg capsule,delayed 30 mg PO DAILY 30 days #30 caps 07/11/25 release duloxetine 60 mg capsule,delayed 60 mg PO DAILY 30 days #30 caps 07/11/25 release haloperidol 5 mg tablet 5 mg PO TID 30 days #90 tabs 07/11/25 hydroxyzine HCl 50 mg tablet 50 mg PO DAILY PRN mild anxiety 30 07/11/25 days #30 tabs lithium carbonate 450 mg 900 mg (2 x 450 mg) PO BEDTIME 30 07/11/25 tablet,extended release days #60 tabs lorazepam 1 mg tablet 1 mg PO TID 30 days #90 tabs 07/11/25 prazosin 1 mg capsule 1 mg PO BEDTIME 30 days #30 caps 07/11/25 prazosin 5 mg capsule 15 mg PO BEDTIME 30 days #90 caps 07/11/25 trazodone 100 mg tablet 200 mg (2 x 100 mg) PO BEDTIME 30 07/11/25 days #60 tabs zolpidem 10 mg tablet 10 mg PO BEDTIME PRN insomnia 30 07/11/25 days #30 tabs Mental Status Exam Mental Status Exam Narrative: Appearance: In bed. disheveled. appears older than stated age. poor dentition. good eye contact Attitude:Cooperative Speech: childlike. otherwise wnl Motor activity: Calm and without any tics, tremors or dyskinesias. Mood: 'a little better' Affect: appropriate, reactive Thought process: goal directed and without evidence of formal thought disorder Thought content: Endorses passive SI and thoughts of self harm w/o any plan or intent. Denies violent ideation Perception: Denies AH/VH and does not appear to respond to internal stimuli Alert/oriented in all spheres Cognition grossly intact Insight: fair Judgment: fair DS: Summary Hospital Course Hospital Course: Ms. Capps is a 40 y/o B[place]an speaking F with h/o MDD, PTSD, borderline personality d/o, and multiple inpatient psychiatric admissions who presented to the [facility] ED after reporting to her fdc that she was not feeling safe and cutting her wrists with a piece of glass. She was transferred to [facility] for safety and stabilization on a CV. Pt is known to [facility] from previous psychiatric admissions, most recently in December 2024, and she has been receiving maintenance ECT here. Pt is known to t/w from the ECT service at [facility] and previous [facility] admission. She has gone several months in the past without being hospitalized. The self-harming behaviors are chronic but have been less frequent when she has felt stable. June and the have been a difficult time of year since her sister was murdered in June 2019 and due to other traumatic events. She is also upset that she won't be able to see her mother for Thanksgiving this year since she can't get transportation there. Labs reviewed. Tox screen + for MJ, otherwise neg. EKG- 59 bpm, QTc 413 ms Pt was started on 5 minute safety checks due to ongoing thoughts of self harm, not feeling like she can keep herself safe on the unit. The goal was to avoid 1:1 if clinically appropriate since having a 1:1 has reinforced her behavioral issues in the past. She was switched to a 1:1 by the on-call psychiatrist due to head banging but engaged in another episode of head banging while on the 1:1 over the weekend. Pt was switched back to 5 min safety checks on Wednesday since she went a day without engaging in any unsafe behaviors. She stayed in bed for the majority of the admission and reported being over-stimulated by interactions with others on the unit. Pt was continued on her home medication regimen throughout her hospitalization. This senior grant writer reviewed her prior medication trials from her [facility] and [facility] medical record with her consent on 07/09 and saw that she has not had a prior clozapine trial.There is evidence to support the use of clozapine to reduce self-harming behaviors (in addition to being FDA approved for reducing suicidal behaviors in schizophrenia/schizoaffective d/o). Pt can discuss potentially starting this with her outpatient psychiatrist. She did not start it on the unit since she advocated for being discharged to celebrate Thanksgiving with her mother after arranging for transportation. Pt was future oriented and looked forward to seeing her mother for Thanksgiving. She denied active SI and reported feeling like she could keep herself safe with the plan to discharge on 07/11. Prior Med Trials per review of [facility] and [facility] records- typical APs: thorazine, haldol atypical APs: risperdal, seroquel, Abilify, Geodon, Latuda stimulants: Concerta, Ritalin SSRIs: sertraline, escitalopram, citalopram TCAs: amitriptyline Mood stabilizers: Depakote, lithium, lamotrigine, carbamazepine, topiramate Benzos: clonazepam, temazepam, lorazepam antihypertensives- propranolol, prazosin, clonidine gabapentin Vistaril Hypnotics: Ambien Status at Discharge Overall status at discharge: patient is progressing back to baseline Time Spent with Patient Time attestation: Total time managing care of this patient today ____ minutes. Discharge Plan Discharge Anticipated Discharge Date/Time: 07/11/25 08:29 Patient Disposition: Home, Self-Care Discharge Diagnosis: Borderline personality disorder Major depressive disorder, recurrent, moderate PTSD Referrals: [facility] (Psychiatry) [Other] - 07/27/25 11:00 am Referral Note: IN OFFICE APPOINTMENT Hafsa Holcomb NP [Primary Care Provider, Medical] - 1 Week Referral Note: 07-10-25 Your primary care provider has been notified of your discharge and will make contact with you to schedule the date and time of your follow up appt. Discharge Medications: New clonidine HCl 0.1 mg Tablet 0.1 mg PO TID 30 Days Qty: 90 0RF Protocol: Hold for SBP< HOLD for SBP < : 90 prazosin 1 mg Capsule 1 mg PO BEDTIME 30 Days Qty: 30 0RF Protocol: Hold for SBP< HOLD for SBP < : 90 benztropine 0.5 mg Tablet 0.5 mg PO BID 30 Days Qty: 60 0RF prazosin 5 mg Capsule 15 mg PO BEDTIME 30 Days Qty: 90 0RF Protocol: Hold for SBP< HOLD for SBP < : 90 haloperidol 5 mg Tablet 5 mg PO TID 30 Days Qty: 90 0RF hydroxyzine HCl 50 mg Tablet 50 mg PO DAILY PRN (Reason: mild anxiety) 30 Days Qty: 30 0RF lithium carbonate 450 mg Tablet Extended Release 900 mg PO BEDTIME 30 Days Qty: 60 0RF lorazepam 1 mg Tablet 1 mg PO TID 30 Days Qty: 90 0RF trazodone 100 mg Tablet 200 mg PO BEDTIME 30 Days Qty: 60 0RF zolpidem 10 mg tablet 10 mg PO BEDTIME PRN (Reason: insomnia) 30 Days Qty: 30 0RF Continued omeprazole 20 mg capsule,delayed release(DR/EC) 20 mg PO Q OTHER DAY cholecalciferol (vitamin D3) [Vitamin D3] 25 mcg (1,000 unit) tablet 25 mcg PO DAILY haloperidol decanoate 100 mg/mL solution 75 mg IM Q28D albuterol sulfate 90 mcg/actuation HFA aerosol inhaler 2 puff inhalation Q4-6H PRN (Reason: shortness of breath or wheezing) Qty: 6.7 0RF diphenhydramine HCl [Banophen] 50 mg capsule 100 mg PO BEDTIME Incruse Ellipta 62.5 mcg/actuation blister with device 1 inh INHALATION DAILY acetaminophen 500 mg Tablet 500 mg PO Q6H PRN (Reason: Pain/Fever) ibuprofen 600 mg Tablet 600 mg PO TID PRN (Reason: Pain) polyethylene glycol 3350 [Miralax] 17 gram/dose Powder 17 g PO DAILY PRN (Reason: Constipation) fluticasone propionate 50 mcg/actuation spray,suspension 2 spray intranasal DAILY ondansetron HCl 4 mg tablet 4 mg PO Q8H PRN (Reason: Nausea And Vomiting) nicotine (polacrilex) 4 mg Lozenge 4 mg BUCCAL Q2H PRN (Reason: Smoking Cessation) duloxetine 30 mg capsule,delayed release(DR/EC) 30 mg PO DAILY 30 Days Qty: 30 0RF duloxetine 60 mg capsule,delayed release(DR/EC) 60 mg PO DAILY 30 Days Qty: 30 0RF Rx Instructions: take with 30mg capsule multivitamin Tablet 1 tab PO DAILY fluticasone propion-salmeterol [Advair HFA] 230-21 mcg/actuation HFA aerosol inhaler 2 puff INHALATION BID calcium carbonate-vitamin D3 600 mg-10 mcg (400 unit) tablet 1 tab PO BID cetirizine 10 mg tablet 10 mg PO DAILY Discontinued clonidine HCl 0.1 mg tablet 0.1 mg PO TID Rx Instructions: takes at 0800, 1400 and 2000 benztropine 0.5 mg tablet 0.5 mg PO BID prazosin 5 mg capsule 15 mg PO BEDTIME trazodone 100 mg tablet 200 mg PO BEDTIME haloperidol 5 mg tablet 5 mg PO TID prazosin 1 mg capsule 1 mg PO BEDTIME Protocol: Hold for SBP< HOLD for SBP < : 90 Rx Instructions: Take together with 2 5mg tabs for a TDD of 16mg. psyllium husk [Reguloid (psyllium husk)] 0.4 gram capsule 0.8 g PO BID zolpidem 10 mg tablet 10 mg PO BEDTIME lithium carbonate 450 mg Tablet Extended Release 900 mg PO BEDTIME 30 Days Qty: 60 0RF hydroxyzine HCl 50 mg tablet 50 mg PO DAILY PRN (Reason: Agitation/Anxiety) lorazepam 1 mg tablet 1 mg PO TID Discharge Orders: Discharge Order (Routine); Ordered 07/11/25 Ordered By: Clementina Layton Diet: Regular diet Activity on Discharge: No Restrictions Stand Alone Forms: Patient Portal Discharge page, Community Support Print Language: Botswanan Care Plan Goals: Maintain safe behaviors Practice coping skills Take medications as prescribed Maintain regular follow-ups with your outpatient providers Health Concerns: Mood stability and behaviors Plan of Treatment: Follow up with your psychiatric provider, PCP and other outpatient providers Take your medication as prescribed Assessment: Risk assessment at the time of discharge: Patient was interviewed on the day of discharge and found to be fully oriented, without any SI or violent ideation. Pt has improved insight and judgment and plans to continue treatment Pt is not at imminent risk of harm to self or others and has a safety plan that includes presenting to the closest ER or calling 911 if feeling unsafe. Pt has been observed closely by unit staff and has not engaged in any behaviors that suggest dangerous to self or others and has demonstrated appropriate bheaviors and impulse control. Discharge Date/Time: 07/11/25 10:03
== END 2025-07-11 10:03 | disposition home or self-care (01) | DRG 751 ==
LOC: HO.ED 21:53 → HO.PM5 07-06 12:26 → HO.PADLT16 07-06 12:54
PROVIDERS: Admitting Provider Psychiatry & Neurology Psychiatry; Emergency Provider Emergency Medicine; PCP Nurse Practitioner Family; Visit Provider Psychiatry & Neurology Psychiatry
DX: F33.1 Major depressive disorder, recurrent, moderate (principal); R45.851 Suicidal ideations; F17.210 Nicotine dependence, cigarettes, uncomplicated; F60.3 Borderline personality disorder; F43.12 Post-traumatic stress disorder, chronic; J44.9 Chronic obstructive pulmonary disease, unspecified; K21.9 Gastro-esophageal reflux disease without esophagitis; Z91.52 Personal history of nonsuicidal self-harm; Z71.6 Tobacco abuse counseling; Z79.899 Other long term (current) drug therapy
CPT/HCPCS: 36415; 80053; 80307; 81001; 81025; 85025; 90656; 93005; 99285; S9485

== ENCOUNTER 2025-07-06 12:25 | Outpatient (BNV) | payer MEDICAID, SELFPAY | END 2025-07-06 14:44 | PROVIDERS: Admitting Provider Psychiatry & Neurology Psychiatry; Emergency Provider Emergency Medicine; PCP Nurse Practitioner Family; Visit Provider Internal Medicine | DX: R00.1 Bradycardia, unspecified (principal) | CPT/HCPCS: 93010 ==

== ENCOUNTER → 2025-07-06 12:25 | Outpatient (BNV) | payer OTHER, SELFPAY | PROVIDERS: Admitting Provider Psychiatry & Neurology Psychiatry; Emergency Provider Emergency Medicine; PCP Nurse Practitioner Family; Visit Provider Psychiatry & Neurology Psychiatry | DX: F60.3 Borderline personality disorder (principal); F33.9 Major depressive disorder, recurrent, unspecified; F43.12 Post-traumatic stress disorder, chronic | CPT/HCPCS: 99232 ==

== ENCOUNTER → 2025-07-06 12:25 | Outpatient (BNV) | payer MEDICAID, SELFPAY | PROVIDERS: Admitting Provider Psychiatry & Neurology Psychiatry; Emergency Provider Emergency Medicine; PCP Nurse Practitioner Family; Visit Provider Nurse Practitioner Family | DX: K21.9 Gastro-esophageal reflux disease without esophagitis (principal) | CPT/HCPCS: 99221 ==

== ENCOUNTER 2025-07-14 14:56 | Emergency (ER) | payer OTHER, SELFPAY ==
--- OUTSIDE RECORDS SUMMARY | 2025-03-09 04:40 | XMS_ITS ---
Author Organization [facility] Address [address] [address] Care Team Providers Care Combination Machine Tool Setter Name Role Phone JOSE ANTONIO MENON, COLETTE Primary Care Provider Adele Meier Unavailable [phone] REASON FOR VISIT Annual UPPER AND BOTTOM LACER HAND Physical Encounters Encounter Location Date Provider Diagnosis [facility] [address] [address] 03/09/2025 Adele Fairchild Plan Of Treatment No Information Progress Notes * MELISA THORNTONDOB:1985 (40 yo F)Acc No.[id number]:03/09/2025 Progress Note Patient: MELISA VIEIRA Appointment Provider: Jeffery Fairchild M.D. :1985 A ge:39 Y S ex:Female Date:03/09/2025 Address:[address] [place], [place] [phone] Pcp:COLETTE BRADY NP Subjective: * Chief Complaints: * 1 . Annual UPPER AND BOTTOM LACER HAND Physical. * Medical History: Objective: * Vitals: Assessment: Plan: * Treatment: * Images: Billing Information: * Visit Code: * Procedure Codes: * Electronic signature of Leon Fairchild MD on 07/14/2025 at 03:41 PM EST Sign off status: Pending * Appointment Provider: Jeffery Fairchild M.D. Date: 0 03/09/2025 Generated for Lj marin/Jessika/Nickolasitting on: 09/13/2024 03:41 PM EST
--- OUTSIDE RECORDS SUMMARY | 2025-07-12 23:59 | XMS_ITS | Continuity of Care Document ---
Author Organization [facility] Adult Address [address] [place] [address]- Support Name Relationship Address Phone THORNTON, CRYSTAL [...] Other Unknown Unavailable Care Team Providers Care Humidifier Operator Name Role Phone Hafsa Holcomb NP Primary Care Physician [phone] Encounter [facility] [place] Date(s): 06/12/25 - 07/12/[address] [address]- Encounter Type: Triage Allergies, Adverse Reactions, Alerts [...] Refills, Maintenance, 06/28/25 1:30:00 PM EST, Aerosol, [facility], Partial fill upon patient request [...] 1 Refills, Maintenance, 03/08/25 4:02:00 PM EDT, [facility], 14, Apply twice daily to wounds, [...] Refills, Maintenance, 03/26/25 12:49:00 PM EDT, Tablet, [facility], Partial fill upon patient request if [...] 1 Refills, Maintenance, 04/18/25 10:40:00 AM EDT, [facility], 150, cm, 04/18/25 10:32:00 EDT, Height, [...] 3 Refills, Maintenance, 03/26/25 12:57:00 PM EDT, [facility], Partial fill upon patient request if [...] Refills, Maintenance, 05/11/24 3:03:00 PM EDT, Gel, [facility] [place], [place], Partial fill upon patient request if [...] Soft Stop, 05/28/25 10:28:00 AM EDT, Tablet, [facility], Partial fill upon patient request if [...] Refills, Maintenance, 03/26/25 10:42:00 AM EDT, Nasal [place], [facility], Partial fill upon patient request [...] Refills, Maintenance, 06/29/24 1:29:00 PM EST, Powder, [facility] - [place], [place], Partial fill upon patient request if the [...] EDT, 03/26/25 12:56:00 PM EDT, REC Powder, [facility], Partial fill upon patient request if [...] Refills, Maintenance, 05/08/25 10:22:00 AM EDT, Tablet, [facility], Partial fill upon patient request if [...] Maintenance, 03/26/25 12:49:00 PM EDT, EC Tablet, [facility], Partial fill upon patient request if [...] PM EDT, 05/17/25 12:59:00 PM EDT, Tablet, [facility], Partial fill upon patient request [...] 0 Refills, Maintenance, 02/05/25 2:22:00 PM EDT, [place], [facility] - [place], [place], Partial fill upon patient request if the [...] Refills, Maintenance, 04/18/25 10:39:00 AM EDT, Aerosol, [facility], Partial fill upon patient request [...] RN Position: [facility] Reji RN Member Role: Primary Care Nurse Name: Shaylee Schilling RN Position: [facility] RN Member Role: Primary Care Nurse Name: Arlen Charles RN Position: [facility] RN Member Role: Primary Care Nurse Name: Sfoía Reno RN Position: [facility] IVANNA Nurse Member Role: Primary Care Nurse Name: Arlen Villarreal RN Position: [facility] IONA RN W/OE and Tasks Member Role: Primary Care Nurse Name: Hafsa Holcomb NP Position: [facility] PCO Associate Professional Member Role: PCP Address: [address] [place] [id number]- [place] Telecom: Name: Felicia Shaw RN Position: [facility] IONA RN W/OE and Tasks Member Role: Primary Care Nurse Name: Rosio Medrano RN Position: [facility]B Nurse Member Role: Primary Care Nurse Name: Johnny WOOD, Paige Llanes Position: [facility] Hospital Professor Of Chemical Engineering Member Role: Primary Care Nurse Name: Kristie Hdadad RN Position: [facility] RN Member Role: Primary Care Nurse Name: Venkat Hobson RN Position: [facility] Professor Of Chemical Engineering Member Role: Primary Care Nurse Name: Balbir Peace MD Position: [facility] Physician - Behavioral Health Member Role: Lifetime Consulting Physician Address: [address] [place] [address] Child Outpatient [address] Telecom: Care Team Related Persons Name: CORY HONG Name: VICENTA BECKMAN Name: STEVEN CAMPBELL Name: CHARLY THORNTON Name: GAVIN THORNTON Insurance Providers Guarantor name: nivio Plan Information #: 1 Payer: [facility] Payer Identifier: [id number] Member Number: [id number] Group Number: [id number] Subscriber Identifier: NA Relationship to Subscriber: self Coverage Type: Medicaid (Managed Care) Coverage Verification Date: NA Telecom: NA Address:
--- OUTSIDE RECORDS SUMMARY | 2025-07-13 23:59 | XMS_ITS | Continuity of Care Document ---
Author Organization [facility] Adult Address [address] [place] [address]- Support Name Relationship Address Phone HILLARY, CRYSTAL Personal Relationship Unknown Unav ailable KARUNA, VICENTA unrelated friend Unknown Unavailabl e THORNTON, CRYSTAL Personal Relationship Unknown Unav ailable ORTEA, STEVEN mother Unknown Unavailable [place], [place] Other Unknown Unavailable THORNTON, CRYSTAL Personal Relationship Unknown Unav ailable THORNTON, CRYSTAL Personal Relationship Unknown Unav ailable THORNTON, CRYSTAL Personal Relationship Unknown Unav ailable THORNOTN, CHARLY mother Unknown Unavailable THORNTON, GAVIN sibling [...] Other Unknown Unavailable Care Team Providers Care Refinery Operator Reforming Unit Name Role Phone Hafsa Holcomb NP Primary Care Physician Encounter [facility] Date(s): 06/13/25 - 07/13/[address] [id number] Encounter Diagnosis Borderline personality disorder(Discharge Diagnosis) - 04/11/24 Schizoaffective disorder(Discharge Diagnosis) - 04/11/24 Attending Physician: Ro Heath Admitting Physician: Ro Heath Referring Physician: Ro Heath Encounter Type: Triage Allergies, Adverse Reactions, Alerts Substance Criticality Severity Reaction Reaction Severity Status topiramate Nausea and vomiting Active Tegretol Active Immunizations Given and Recorded Vaccine Date Status Refusal Reason tetanus/diphtheria/pertussis, acel(Tdap) 2/12/24 Given tetanus/diphtheria/pertussis, acel(Tdap) 11/02/09 Given pneumococcal 23-valent vaccine 05/11/09 Given Diphth-Tetanus Toxoids Adsorbed(oldterm) 04/15/05 Given Medications Advair HFA 230 mcg / 21 mcg 2 puffs, Inhalation, 2 times a day, # 1 each, 1 Refills, Maintenance, 06/28/25 1:30:00 PM EST, Aerosol, [facility], Partial fill upon patient request [...] 1 Refills, Maintenance, 03/08/25 4:02:00 PM EDT, [facility], 14, Apply twice daily to [...] Refills, Maintenance, 03/26/25 12:49:00 PM EDT, Tablet, [facility], Partial fill upon patient request if [...] 1 Refills, Maintenance, 04/18/25 10:40:00 AM EDT, [facility], 150, cm, 04/18/25 10:32:00 EDT, Height, [...] 3 Refills, Maintenance, 03/26/25 12:57:00 PM EDT, [facility], Partial fill upon patient request if [...] Refills, Maintenance, 05/11/24 3:03:00 PM EDT, Gel, [facility] [address] [place], [place], Partial fill upon patient request if [...] Soft Stop, 05/28/25 10:28:00 AM EDT, Tablet, [facility], Partial fill upon patient request if the [...] Refills, Maintenance, 03/26/25 10:42:00 AM EDT, Nasal [place], [facility], Partial fill upon patient request [...] Refills, Maintenance, 06/29/24 1:29:00 PM EST, Powder, [facility] - [place], [place], Partial fill upon patient request if the [...] EDT, 03/26/25 12:56:00 PM EDT, REC Powder, [facility], Partial fill upon patient request [...] Refills, Maintenance, 05/08/25 10:22:00 AM EDT, Tablet, [facility], Partial fill upon patient request [...] Maintenance, 03/26/25 12:49:00 PM EDT, EC Tablet, [facility], Partial fill upon patient request if [...] PM EDT, 05/17/25 12:59:00 PM EDT, Tablet, [facility], Partial fill upon patient request if [...] 0 Refills, Maintenance, 02/05/25 2:22:00 PM EDT, [place], [facility] [address] [place], [place], Partial fill upon patient request if [...] Refills, Maintenance, 04/18/25 10:39:00 AM EDT, Aerosol, [facility], Partial fill upon patient request [...] Diagnosis Diagnosis Type Effective Dates Health Status Clinical Service Informant Borderline personality disorder Discharge Diagnosis 04/11/24 Schizoaffective disorder Discharge Diagnosis 04/11/24 Patient Care team information Care Team Personnel Name: Lynnette Veloz RN Position: [facility] Reji RN Member Role: Primary Care Nurse Name: Shaylee Schilling RN Position: [facility] RN Member Role: Primary Care Nurse Name: Arlen Charles RN Position: [facility] RN Member Role: Primary Care Nurse Name: Sofía Reno RN Position: [facility] AMB Nurse Member Role: Primary Care Nurse Name: Arlen Villarreal RN Position: [facility] ED RN W/OE and Tasks Member Role: Primary Care Nurse Name: Hafsa Holcomb NP Position: [facility] PCO Associate Professional Member Role: PCP Address: [address] [facility] [facility] [place] [address]- [employer] Telecom: Name: Felicia Shaw RN Position: [facility] ED RN W/OE and Tasks Member Role: Primary Care Nurse Name: Rosio Medrano RN Position: [facility] AMB Nurse Member Role: Primary Care Nurse Name: Paige Turner RN Position: [facility] Paving And Surfacing Labourer Member Role: Primary Care Nurse Name: Kristie Haddad RN Position: [facility] RN Member Role: Primary Care Nurse Name: Venkat Hobson RN Position: [facility] Paving And Surfacing Labourer Member Role: Primary Care Nurse Name: Balbir Peace MD Position: [facility] Physician - Behavioral Health Member Role: Lifetime Consulting Physician Address: [address] [facility] [place] [address]- Telecom: Care Team Related Persons Name: CORY HONG Name: VICENTA BECKMAN Name: STEVEN CAMPBELL Name: CHARLY THORNTON Name: GAVIN THORNTON Insurance Providers Guarantor name: Tribe Plan Information #: 1 Payer: [facility] Payer Identifier: [id number] Member Number: [id number] Group Number: [id number] Subscriber Identifier: RIMA Relationship to Subscriber: self Coverage Type: Medicaid (Managed Care) Coverage Verification Date: NA Telecom: NA Address: NA
--- NOTE | ~2025-07-14 | XR_ITS ---
CLINICAL HISTORY: pain 4 views right knee Comparison: 02/07/2025 Findings: No fractures or dislocations. No joint effusion. Medial and lateral compartment joint space heights are maintained. There is very slight tricompartmental spurring. No radiopaque foreign body. Impression: 1. Similar minimal tricompartmental degenerative disease. 4 views left knee Comparison: None Findings: No fractures or dislocations. No joint effusion. There is very slight medial compartment spurring. Medial and lateral compartment joint space heights are maintained. No radiopaque foreign body. Impression: 1. Slight medial compartment degenerative disease. This document has been electronically signed by: Ermias Freedman MD on 07/14/2025 17:06:23
--- NOTE | ~2025-07-14 | XR_ITS ---
CLINICAL HISTORY: pain --- Additional Notes or Special Instructions: will call before bringing pt. over 1520 CF 3 views lumbar spine Comparison: 07/04/2023 Findings: No fractures or dislocations. Normal vertebral body alignment. Intervertebral disc heights are well-maintained. There is very slight anterior vertebral body spurring L2-L4. Sacroiliac joints unremarkable. Impression: 1. Slight vertebral body spurring L2-L4. Otherwise, unremarkable lumbar spine. This document has been electronically signed by: Ermias Freedman MD on 07/14/2025 17:03:50
--- NOTE | 2025-07-14 14:59 | ED_ITS ---
HPI - General Adult General Chief complaint: Psychiatric Symptoms Stated complaint: THOUGHTS OF SELF HARM FROM [facility], CALM/COOP Time Seen by Provider: 07/14/25 14:58 Source: patient and EMS Mode of arrival: EMS Limitations: no limitations History of Present Illness ED Provider: Kaylee Hilario PA-C HPI narrative: Patient is a 40 year old assigned female at with a history history of COPD, PTSD, adjustment disorder, schizoaffective disorder, and borderline personality disorder presenting to the emergency department today with passive suicidal ideation, bilateral knee pain, and low back pain. Patient states that she has been having some increased depression with suicidal ideation but no plan. Patient states that both of her knees and her back have been more sore lately. Patient denies any recent falls / trauma. Patient denies any other complaints at this time. Related Data Home Medications ?Medication ?Instructions ?Recorded ?Confirmed omeprazole 20 mg capsule,delayed 20 mg PO Q OTHER DAY 04/30/24 07/04/25 release multivitamin 1 tab PO DAILY 05/17/2406/16 cholecalciferol (vitamin D3) 25 25 mcg PO DAILY 07/04/25 mcg (1,000 unit) tablet (Vitamin D3) haloperidol decanoate 100 mg/mL 75 mg IM Q28D 08/15/24 07/04/25 intramuscular solution calcium 600 mg (as 1 tab PO BID 11/02/24 carbonate)-vitamin D3 10 mcg (400 unit) tablet fluticasone propionate 230 2 puff inhalation BID 11/0207/04/25 mcg-salmeterol 21 mcg/actuation HFA inhaler (Advair HFA) cetirizine 10 mg tablet 10 mg PO DAILY 11/06/2406/16 diphenhydramine HCl 50 mg capsule 100 mg PO BEDTIME in somnia 12/03/24 07/04/25 (Banophen) umeclidinium 62.5 mcg/actuation 1 inh inhalation DAILY 12/03/24 07/04/25 blister powder for inhalation (Incruse Ellipta) acetaminophen 500 mg tablet 500 mg PO Q6H PRN Pain/Fev er 02/12/25 07/04/25 fluticasone propionate 50 2 spray intranasal DAILY 06/ 30/25 11/19/25 mcg/actuation nasal spray,suspension ibuprofen 600 mg tablet 600 mg PO TID PRN Pain 02/1207/04/25 polyethylene glycol 3350 17 17 g PO DAILY PRN Constipa tion 02/12/25 07/04/25 gram/dose oral powder (Miralax) nicotine (polacrilex) 4 mg buccal 4 mg buccal Q2H PRN Smoking 07/01/25 07/04/25 lozenge Cessation ondansetron HCl 4 mg tablet 4 mg PO Q8H PRN Nausea And Vomiting 07/01/25 07/04/25 Previous Rx's ?Medication ?Instructions ?Recorded albuterol sulfate 90 mcg/actuation 2 puff inhalation Q 4-6H PRN 08/30/24 aerosol inhaler shortness of breath or wheez ing #6.7 grams benztropine 0.5 mg tablet 0.5 mg PO BID 30 days #60 ta bs 07/11/25 clonidine HCl 0.1 mg tablet 0.1 mg PO TID 30 days #90 tabs 07/11/25 duloxetine 30 mg capsule,delayed 30 mg PO DAILY 30 day s #30 caps 07/11/25 release duloxetine 60 mg capsule,delayed 60 mg PO DAILY 30 day s #30 caps 07/11/25 release haloperidol 5 mg tablet 5 mg PO TID 30 days #90 tabs 07/11/25 hydroxyzine HCl 50 mg tablet 50 mg PO DAILY PRN mild a nxiety 30 07/11/25 days #30 tabs lithium carbonate 450 mg 900 mg (2 x 450 mg) PO BEDTI ME 30 07/11/25 tablet,extended release days #60 tabs lorazepam 1 mg tablet 1 mg PO TID 30 days #90 tabs 07/11/25 prazosin 1 mg capsule 1 mg PO BEDTIME 30 days #30 caps 07/11/25 prazosin 5 mg capsule 15 mg PO BEDTIME 30 days #90 caps 07/11/25 trazodone 100 mg tablet 200 mg (2 x 100 mg) PO BEDTI ME 30 07/11/25 days #60 tabs zolpidem 10 mg tablet 10 mg PO BEDTIME PRN insomni a 30 07/11/25 days #30 tabs Allergies Allergy/AdvReac Type Severity Reaction Status Date / Time carbamazepine (From TEGRETOL) AdvReac Mild Nausea and Verified 07/14/25 15:18 Vomiting topiramate (From Topamax) AdvReac Mild Nausea and Verified 07/14/25 15:18 Vomiting Review of Systems Constitutional: Constitutional: Reports as per HPI Eyes: Eyes: Reports as per HPI ENT: Reports as per HPI Cardiovascular: Cardiovascular: Reports as per HPI Respiratory: Respiratory: Reports as per HPI Gastrointestinal: Gastrointestinal: Reports as per HPI Genitourinary: Genitourinary: Reports as per HPI Musculoskeletal: Musculoskeletal: Reports as per HPI Integumentary/Breasts: Skin/Breast: Reports as per HPI Neurologic: Reports as per HPI Psychiatric: Psychiatric: Reports as per HPI Endocrine: Endocrine: Reports as per HPI Hematologic/Lymphatic: Hematologic/Lymphatic: Reports as per HPI Allergic/Immunologic: Allergic/Immunologic: Reports as per HPI [facility] Past Medical History Attestation statement: The following information was validated with the patient. Source: old records reviewed and nursing notes reviewed Medical History Depression Schizoaffective disorder, depressive type Depression with suicidal ideation MDD (major depressive disorder), recurrent, severe, with psychosis Port-A-Cath in place History of electroconvulsive therapy COVID-19 COVID-19 Sprain of left foot Chronic post-traumatic stress disorder (PTSD) COPD (chronic obstructive pulmonary disease) Increased BMI GERD (gastroesophageal reflux disease) Recurrent major depression-severe Acute post-traumatic stress disorder Injury, self-inflicted Suicidal ideation Self-harming behavior Intentional self-harm Suicidal ideation Borderline personality disorder Schizoaffective disorder Adjustment disorder Asthma Depression Anxiety PTSD (post-traumatic stress disorder) Family History Family History Mother Brain cancer Other No family history of cardiac disease Social History Social History Household Members: Other Household Members Other:: [employer] Housing: Other Housing Other:: [facility] Do you presently have visiting nurse or other home services: No Alcohol intake: never Comment: pt is on 1:1 to maintain safety Patient Tobacco Use Status: Former Tobacco user Tobacco use type: Cigarette Cigarette Packs Per Day: 0.5 Cigarettes Per Day: 10.0 Years Smoked: 20 Smoked in Last 30 Days: Yes e-Cigarette/Vaping Use: Never Used Second Hand Smoke Exposure: No Use of substances other than those prescribed or required for medical reasons: Yes Substance Use Type: Marijuana Advance Directives: No Advance Directives Information Provided: No Do you have a plan to hurt others: No Plan Patient : No service: No Current occupation: rt handed Sexual orientation: Straight/Heterosexual Physical Exam ED Vital Signs: Vital Signs - 24 hr 07/14/25 15:13 Temperature 97.3 F Pulse Rate 92 Respiratory Rate 16 Blood Pressure 99/80 Pulse Oximetry 95 Oxygen Delivery Method Room Air BMI result Body Mass Index 88.2 Const General: cooperative, no acute distress, alert and awake Nutritional Appearance: well nourished Orientation/consciousness: patient oriented x3 HENMT Head: Yes normal to inspection and Yes atraumatic Ears: hearing grossly normal bilaterally and external ears normal General nose exam: Normal external nose present, no nasal discharge noted and no epistaxis Face and sinus: Yes normal facial exam, No abrasion and No laceration Mouth: Normal oral and palatal mucosa present, no drooling and no muffled voice Eyes General: appearance normal, both eyes and all related structures Periorbital: periorbital findings normal Eyelids: Yes eyelids normal Conjunctivae: conjunctivae normal Pupils: Equal, round and reactive pupils present EOM: EOMs intact bilaterally Neck Neck: Yes normal visual inspection and Yes full ROM Resp Effort & Inspection: normal respiratory effort and able to speak in complete sentences Neuro General: patient oriented x3, moves all extremities and CN's II-XI intact bilaterally Cranial nerves: Yes Equal, round and reactive pupils present Cognition (Neuro): normal cognition Extrem General: Yes normal to inspection, Yes full ROM and Yes capillary refill normal Psych Appearance: grossly normal Mental Status: mental status grossly normal Thought content: Suicidality present Medications Administered Discontinued Medications Generic Name Dose Route Start Last Admin Trade Name Freq PRN Reason Stop Dose Admin Ketorolac Tromethamine 15 mg 07/14/25 15:57 07/14/25 16:07 Ketorolac Tromethamine 15 Mg/Ml Vial IM 07/14/25 15:58 15 mg ONCE ONE Administration Medical Decision Making Medical Decision Making [facility] Narrative: Patient is a 40 year old assigned female at with a history history of COPD, PTSD, adjustment disorder, schizoaffective disorder, and borderline personality disorder presenting to the emergency department today with passive suicidal ideation, bilateral knee pain, and low back pain. Patient's physical exam was as noted in the physical exam portion of this note and consistent with her baseline. Patient's urine showed no acute process. Patient's bilateral knee and lumbar x-ray showed no acute process. Patient received IM Tordaol which, upon re-evaluation, she stated it helped her pain some. Patient evaluated by CARE Team and the patient was cleared for discharge given this is her baseline. I explained my physical exam findings as well as all test results to the patient. I answered all questions asked by the patient. I stressed the importance of the patient taking her medication as directed (either prescribed or as the over the counter packaging recommends). I stressed the importance of the patient following up with her primary care provider. I stressed the importance of the patient returning to the emergency department immediately if her symptoms were to worsen or if she were to develop any dizziness, shortness of breath, difficulty breathing, chest pain, blurry vision, loss of vision, nausea, vomiting, abdominal pain, fever, chills, back pain, or any other complaints. Patient verbalized agreement and understanding with this treatment plan and discharge. Differential Diagnosis Differential Diagnoses: The differential diagnosis associated with the presentation includes Knee pain Low back pain Chronic SI Admission/Observation Consideration of admission/observation: Escalation of care including admission/observation considered Patient would have been admitted to the hospital had her work up had any findings where hospital admission was appropriate and her clinical presentation warranted hospital admission. Consult Healthcare Provider Management of the patient was discussed with: Behavioral Health Provider (spoke with the CARE Team as noted in the MDM Rationale portion of this note) Lab Data [facility] Lab Attestation statement: I reviewed the patient's lab results. My interpretation of these studies and their corresponding values is that they are grossly normal. Labs: Lab Results 07/14/25 Range/Units 16:27 Urine Color Yellow Urine Appearance Cloudy Urine pH 8.0 (5.0-9.0) Ur Specific [place] 1.010 (1.005-1.025) Urine Protein Negative (Neg-Trace) mg/dL Urine Glucose (UA) Negative (Negative) mg/dL Urine Ketones Negative (Negative) mg/dL Urine Blood Small (1+) H (Negative) Urine Nitrite Negative (Negative) Ur Leukocyte Esterase Negative (Negative) Urine Opiates Screen Not Detected (Not Detect) Ur Buprenorphine Scrn Not Detected (Not Detect) ng/mL Ur Oxycodone Screen Not Detected (Not Detect) ng/mL Urine Methadone Screen Not Detected (Not Detect) ng/mL Urine Fentanyl Screen Not Detected (Not Detect) Ur Barbiturates Screen Not Detected (Not Detect) Ur Phencyclidine Scrn Not Detected (Not Detect) Ur Amphetamines Screen Not Detected (Not Detect) U Benzodiazepines Scrn Not Detected (Not Detect) Urine Cocaine Screen Not Detected (Not Detect) U Marijuana (THC) Screen Not Detected (Not Detect) Independent Interpretation I performed an independent interpretation of an: Plain X-Ray Interpretation: My interpretation is in agreement with the radiologist's impression of these imaging studies as written below. CLINICAL HISTORY: pain 4 views right knee Comparison: 02/07/2025 Findings: No fractures or dislocations. No joint effusion. Medial and lateral compartment joint space heights are maintained. There is very slight tricompartmental spurring. No radiopaque foreign body. Impression: 1. Similar minimal tricompartmental degenerative disease. 4 views left knee Comparison: None Findings: No fractures or dislocations. No joint effusion. There is very slight medial compartment spurring. Medial and lateral compartment joint space heights are maintained. No radiopaque foreign body. Impression: 1. Slight medial compartment degenerative disease. This document has been electronically signed by: Ermias Freedman MD on 07/14/2025 17:06:23 Dictated By: Ermias Freedman MD Signed By: Electronically signed by Ermias Freedman MD 07/14/25 1706 CLINICAL HISTORY: pain --- Additional Notes or Special Instructions: will call before bringing pt. over 1520 CF 3 views lumbar spine Comparison: 07/04/2023 Findings: No fractures or dislocations. Normal vertebral body alignment. Intervertebral disc heights are well-maintained. There is very slight anterior vertebral body spurring L2-L4. Sacroiliac joints unremarkable. Impression: 1. Slight vertebral body spurring L2-L4. Otherwise, unremarkable lumbar spine. This document has been electronically signed by: Ermias Freedman MD on 07/14/2025 17:03:50 Dictated By: Ermias Freedman MD Signed By: Electronically signed by Ermias Freedman MD 07/14/25 2908 Radiology Impression Discussion of test interpretation with radiology: I have reviewed the radiologist's reading. Independent Historian Clinical information obtained from an independent historian. History obtained from or confirmed by: EMS (EMS provided additional history and confirmed the history provided by the patient. ) Critical Care Time Critical Care Time Critical Care Time: Yes Total Critical Care Time: 34 Attestation: I spent 34 minutes of Critical Care Time with this patient. This does not include time spent on separately reported billable procedures. Discharge Plan Discharge Clinical Impression: Bilateral knee pain, Low back pain, Depression Patient Disposition: Xfer Other Transfer Details: [facility] to [facility] Instructions: Depression (ED), Acute Low Back Pain (ED), Knee Pain (ED) Additional Instructions: Your imaging today was normal. You were seen for a concern regarding your mental / behavioral behavioral health. It is important after this visit today that you follow up with either your mental / behavioral health or primary care provider within 7 days (from today).? Return for any worsening symptoms or concerns such as thoughts of harming yourself or others. Please call 911 immediately if you feel your mental health is worsening.? National Suicide and Crisis Lifeline: Available 24 hours a day, 7 days a week, 365 days a year Dial 988 with any telephone to speak to someone immediately [facility] (Mental / Behavioral health therapist: [address] [place], [place] [id number] [facility]: [address] [place] [address] Open from 10am - 12pm (walk ins welcome) [facility] Crisis Services: [address] [place] [address] Walk in hours from 10am - 12pm Behavioral health Network: [address] [place] [address] [place] [id number] Wednesday through Wednesday 8am - 8pm Wednesday and Wednesday 9am - 5pm IF you are prescribed medications and/or you are taking over the counter medications - it is very important you continue to do so as prescribed / directed unless told otherwise. Follow up with your primary care provider. Return to the emergency department immediately if your symptoms worsen or if you develop any numbness, tingling, dizziness, shortness of breath, difficulty breathing, chest pain, blurry vision, loss of vision, nausea, vomiting, abdominal pain, fever, chills, back pain, or any other complaints. Prescriptions: No Action omeprazole 20 mg capsule,delayed release(DR/EC) 20 mg PO Q OTHER DAY cholecalciferol (vitamin D3) [Vitamin D3] 25 mcg (1,000 unit) tablet 25 mcg PO DAILY haloperidol decanoate 100 mg/mL solution 75 mg IM Q28D albuterol sulfate 90 mcg/actuation HFA aerosol inhaler 2 puff inhalation Q4-6H PRN (Reason: shortness of breath or wheezing) Qty: 6.7 0RF diphenhydramine HCl [Banophen] 50 mg capsule 100 mg PO BEDTIME Incruse Ellipta 62.5 mcg/actuation blister with device 1 inh INHALATION DAILY acetaminophen 500 mg Tablet 500 mg PO Q6H PRN (Reason: Pain/Fever) ibuprofen 600 mg Tablet 600 mg PO TID PRN (Reason: Pain) polyethylene glycol 3350 [Miralax] 17 gram/dose Powder 17 g PO DAILY PRN (Reason: Constipation) fluticasone propionate 50 mcg/actuation spray,suspension 2 spray intranasal DAILY ondansetron HCl 4 mg tablet 4 mg PO Q8H PRN (Reason: Nausea And Vomiting) nicotine (polacrilex) 4 mg Lozenge 4 mg BUCCAL Q2H PRN (Reason: Smoking Cessation) clonidine HCl 0.1 mg Tablet 0.1 mg PO TID 30 Days Qty: 90 0RF Protocol: Hold for SBP< HOLD for SBP < : 90 prazosin 1 mg Capsule 1 mg PO BEDTIME 30 Days Qty: 30 0RF Protocol: Hold for SBP< HOLD for SBP < : 90 benztropine 0.5 mg Tablet 0.5 mg PO BID 30 Days Qty: 60 0RF prazosin 5 mg Capsule 15 mg PO BEDTIME 30 Days Qty: 90 0RF Protocol: Hold for SBP< HOLD for SBP < : 90 haloperidol 5 mg Tablet 5 mg PO TID 30 Days Qty: 90 0RF hydroxyzine HCl 50 mg Tablet 50 mg PO DAILY PRN (Reason: mild anxiety) 30 Days Qty: 30 0RF lithium carbonate 450 mg Tablet Extended Release 900 mg PO BEDTIME 30 Days Qty: 60 0RF lorazepam 1 mg Tablet 1 mg PO TID 30 Days Qty: 90 0RF trazodone 100 mg Tablet 200 mg PO BEDTIME 30 Days Qty: 60 0RF zolpidem 10 mg tablet 10 mg PO BEDTIME PRN (Reason: insomnia) 30 Days Qty: 30 0RF duloxetine 30 mg capsule,delayed release(DR/EC) 30 mg PO DAILY 30 Days Qty: 30 0RF duloxetine 60 mg capsule,delayed release(DR/EC) 60 mg PO DAILY 30 Days Qty: 30 0RF Rx Instructions: take with 30mg capsule multivitamin Tablet 1 tab PO DAILY fluticasone propion-salmeterol [Advair HFA] 230-21 mcg/actuation HFA aerosol inhaler 2 puff INHALATION BID calcium carbonate-vitamin D3 600 mg-10 mcg (400 unit) tablet 1 tab PO BID cetirizine 10 mg tablet 10 mg PO DAILY Referrals: Hafsa Holcomb NP [Primary Care Provider, Medical] Interventions: [place]-Suicide Risk Severity Scale Last Done: 07/14/25 15:18 Print Language: Libyan
[2025-07-14 15:13] VITALS: BP 152/80; BP 99/80; PULSE 86; PULSE 92; RESP 16; TEMP 36.3; O2SAT 95; O2SAT 98; BMI 88.2
--- NOTE | 2025-07-14 15:22 | PC.NURSE ---
pt stating she has no thoughts of SI/HI that she had thoughts of cutting/self harm and wanted to talk with somebody instead of doing so.
--- OUTSIDE RECORDS SUMMARY | 2025-07-14 15:41 | XMS_ITS | Clinical Summary ---
Author Organization Merged With [facility] Address [address] [place] [phone] Phone Care Team Providers Care Credit Adjuster Name Role Phone Carroll Gaviria MD Primary [...] topic Medical Devices Not on file Insurance [employer] [facility] [employer] [facility] [place] sellpoints [facility] [place] [facility] [place] Member Subscriber Plan / Payer (Ef fective 2020-Present) Name:Stella Capps Relation to Subscriber:Self Name:Stella Capps Payer ID:[id number] Group ID:Not on file Type:Medicaid Address: [place] [address] [place] [address] Mob [facility] [place] [facility] FusionAds [facility] [address] [address] [facility] [facility] Care Teams Credit Adjuster Relationship Specialty Start Date End Date Carroll Gaviria MD [address] [place] [phone] PCP - General Internal Medicine 12/20/23 Additional Source Comments The information contained in this document represents components of the legal health record. It is not the complete legal health record.[facility]
--- OUTSIDE RECORDS SUMMARY | 2025-07-14 15:41 | XMS_ITS | Patient Health Record ---
Author Organization [employer] [facility] Address [address] [place] [address] Care Team Providers Care Munitions Worker Name Role Phone COLETTE BRADY NP Primary Care Provider Adele Meier Unavailable [phone] Reason For Referral No Information Encounters Encounter Location Date Provider Diagnosis [facility] [employer] [facility] [address] [place] [address] 03/09/2025 Adele Fairchild Plan Of Treatment No Information Insurance Providers Payer Name Payer Address Payer Phone Subscriber Number Group Number Insured Name Patient Relationship to Insured Coverage Start Date Coverage End Date [facility] [address] [place] [id number] MELISA THORNTON Self - patient is the insured
--- NOTE | 2025-07-14 16:15 | PC.NURSE ---
pt medicated for 9/10 back and knee pain
--- NOTE | 2025-07-14 16:30 | PC.NURSE ---
patient very difficult stick as she has been attempted multiple times, ed provider was notified and this nurse was asked if care team would see the patient without labs being drawn, care team ok'd pt to be seen without the labs drawn.
[2025-07-14 16:57] LABS: Appearance Urine Cloudy; Glucose Urine UA Negative (Negative); PH 8.0 (5.0-9.0); Specific Gravity - Urine 1.010 (1.005-1.025); UMIC TRIGGER UA YES
[2025-07-14 16:59] LABS: Cannabinoid Screen Urine Not Detected (Not Detect)
[2025-07-14 17:16] VITALS: BP 103/82; PULSE 90; RESP 16; TEMP 36.7; O2SAT 96
== END 2025-07-14 17:17 | disposition other institution (70) ==
PROVIDERS: Physician Assistant Medical; Emergency Provider Emergency Medicine; PCP Nurse Practitioner Family
DX: M25.561 Pain in right knee (principal); M54.2 Cervicalgia; F33.1 Major depressive disorder, recurrent, moderate; Z51.81 Encounter for therapeutic drug level monitoring; Z79.899 Other long term (current) drug therapy
CPT/HCPCS: 72100; 73564; 80307; 81001; 96372; 99284; 99285; J1885; S9485

== ENCOUNTER → 2025-07-14 15:00 | Outpatient (BNV) | payer MEDICAID, SELFPAY | PROVIDERS: Emergency Provider Emergency Medicine; PCP Nurse Practitioner Family; Visit Provider Radiology Diagnostic Radiology | DX: M25.561 Pain in right knee (principal); M25.562 Pain in left knee; M54.50 Low back pain, unspecified | CPT/HCPCS: 72100; 73564 ==

== ENCOUNTER 2025-07-16 20:59 | Inpatient (IN) | payer OTHER, SELFPAY ==
--- OUTSIDE RECORDS SUMMARY | 2025-03-09 04:40 | XMS_ITS ---
Author Organization [facility] Address [address] [address] Care Team Providers Care Field Handyman Name Role Phone JOSE ANTONIO MENON, COLETTE Primary Care Provider Adele Meier Unavailable [phone] REASON FOR VISIT Annual AGENCY APPOINTMENTS SUPERVISOR Physical Encounters Encounter Location Date Provider Diagnosis [facility] [address] [address] 03/09/2025 Adele Fairchild Plan Of Treatment No Information Progress Notes * MELISA THORNTONDOB:1985 (40 yo F)Acc No.[id number]:03/09/2025 Progress Note Patient: MELISA VIEIRA Appointment Provider: Jeffery Fairchild M.D. :1985 A ge:39 Y S ex:Female Date:03/09/2025 Address:[address] [place], [place] [phone] Pcp:COLETTE BRADY NP Subjective: * Chief Complaints: * 1 . Annual AGENCY APPOINTMENTS SUPERVISOR Physical. * Medical History: Objective: * Vitals: Assessment: Plan: * Treatment: * Images: Billing Information: * Visit Code: * Procedure Codes: * Electronic signature of Leon Fairchild MD on 07/16/2025 at 10:45 PM EST Sign off status: Pending * Appointment Provider: Jeffery Fairchild M.D. Date: 0 03/09/2025 Generated for Lj marin/Jessika/Nickolasitting on: 09/16/2024 10:45 PM EST
[2025-07-16 21:07] VITALS: BP 126/84; PULSE 81; O2SAT 96; BMI 34.3
[2025-07-16 21:19] VITALS: BP 91/79; PULSE 89; RESP 18; TEMP 36.2; O2SAT 97
[2025-07-16 22:30] LABS: MANUAL DIFF FLAG NO
[2025-07-16 22:32] LABS: Hematocrit 36.0 % (37.0-47.0); Hemoglobin 11.9 g/dl (12.0-16.0); Imm Gran Abs Auto 0.02 X10*3/uL (0.00-0.03); Imm Gran Pct Auto 0.3 % (0.0-0.4); Lymphocytes Absolute Auto 1.4 X10*3/uL (1.2-4.9); Mean Corpuscular HGB Conc 33.1 g/dl (31.0-35.0); Mean Corpuscular Hemoglobin 30.1 pg (27.0-33.0); Mean Corpuscular Volume 90.9 fL (80.0-98.0); NRBC Abs Auto 0.000 X10*3/uL (0.0-0.012); NRBC Pct Auto 0.0 /100WBC (0.0-0.2); Platelet Count 269 X10*3/uL (160-400); Red Blood Count 3.96 X10*6/uL (4.20-5.50); White Blood Count 5.9 X10*3/uL (4.8-10.8)
--- OUTSIDE RECORDS SUMMARY | 2025-07-16 22:45 | XMS_ITS | Clinical Summary ---
Author Organization [facility] Address [address] [place] [phone] Phone Care Team Providers Care Staff Weapons Officer Name Role Phone Carroll Gaviria MD Primary [...] topic Medical Devices Not on file Insurance [employer] [facility] [place] [employer] [facility] [place] Bundle Buy [facility] [place] [facility] SnapsortVETERANS HE[facility] ADMIN[facility] [place] Member Subscriber Plan / Payer (Ef fective 2020-Present) Name:Stella Capps Relation to Subscriber:Self Name:Stella Capps Payer ID:[id number] Group ID:Not on file Type:Medicaid Address: [place] [address] [place] [address] [facility] [place] [facility] BCR Environmental [facility] [place] [address] [address] [facility] [facility] Care Teams Staff Weapons Officer Relationship Specialty Start Date End Date Carroll Gaviria MD [address] [place] [phone] PCP - General Internal Medicine 12/20/23 Additional Source Comments The information contained in this document represents components of the legal health record. It is not the complete legal health record.[facility]
--- OUTSIDE RECORDS SUMMARY | 2025-07-16 22:46 | XMS_ITS | Patient Health Record ---
Author Organization [facility] Address [address] [place] [address] Care Team Providers Care Emotional Support Teacher Name Role Phone COLETTE BRADY NP Primary Care Provider Adele Meier Unavailable [phone] Reason For Referral No Information Encounters Encounter Location Date Provider Diagnosis [facility] [address] [place] [address] 03/09/2025 Adele Fairchild Plan Of Treatment No Information Insurance Providers Payer Name Payer Address Payer Phone Subscriber Number Group Number Insured Name Patient Relationship to Insured Coverage Start Date Coverage End Date [facility] [address] [place] [id number] [phone] MELISA THORNTON Self - patient is the insured
[2025-07-16 22:47] LABS: Alanine Aminotransferase 16 U/L (0-31); Albumin Level 4.1 g/dL (3.5-5.0); Alkaline Phosphatase 65 U/L (39-117); Anion Gap 9 (12-20); Aspartate Amino Transferase 15 U/L (5-31); Blood Urea Nitrogen 10 mg/dL (9-16); Calcium 9.4 mg/dL (8.4-10.2); Carbon Dioxide 26 mmol/L (22-29); Chloride 107 mmol/L (96-108); Creatinine Clr Calc Pharmacy 105.6; Estimated Glomerular Filt Rate > 60; Potassium 3.6 mmol/L (3.3-5.1); Sodium 138 mmol/L (135-145); Total Protein 6.4 g/dL (6.5-8.0)
--- NOTE | 2025-07-16 23:40 | ED.PSYCH ---
HPI - Psych General Chief Complaint: Psychiatric Symptoms Stated Complaint: si Time Seen by Provider: 07/16/25 21:03 Source: patient and EMS Mode of arrival: EMS Limitations: no limitations History of Present Illness ED Provider: Dr. Rosi Barcenas HPI Narrative: patient comes to the emergency room via ambulance from her half-way. Patient states that she has not felt safe, states that she has a thoughts of hurting herself. Patient is having recurrent nightmares. According to EMS, patient had an argument with the staff about taking her medications. Patient denies HI. Patient states that a few days ago, patient punched herself in the left side of the forehead because she was very overwhelmed. Related Data Home Medications ?Medication ?Instructions ?Recorded ?Confirmed omeprazole 20 mg capsule,delayed 20 mg PO Q OTHER DAY 04/30/24 07/17/25 release multivitamin 1 tab PO DAILY 05/17/24 07/17/25 cholecalciferol (vitamin D3) 25 25 mcg PO DAILY 07/29/24 07/17/25 mcg (1,000 unit) tablet (Vitamin D3) haloperidol decanoate 100 mg/mL 75 mg IM Q28D 08/15/24 07/17/25 intramuscular solution calcium 600 mg (as 1 tab PO BID 11/02/24 07/17/25 carbonate)-vitamin D3 10 mcg (400 unit) tablet cetirizine 10 mg tablet 10 mg PO DAILY 11/06/24 07/17/25 diphenhydramine HCl 50 mg capsule 100 mg PO BEDTIME insomnia 12/03/24 07/17/25 (Banophen) umeclidinium 62.5 mcg/actuation 1 inh inhalation DAILY 12/03/24 07/17/25 blister powder for inhalation (Incruse Ellipta) acetaminophen 500 mg tablet 500 mg PO Q6H PRN Pain/Fever 02/12/25 07/17/25 ibuprofen 600 mg tablet 600 mg PO TID PRN Pain 02/12/25 07/17/25 polyethylene glycol 3350 17 17 g PO DAILY PRN Constipation 02/12/25 07/17/25 gram/dose oral powder (Miralax) nicotine (polacrilex) 4 mg buccal 4 mg buccal Q2H PRN Smoking 07/01/25 07/17/25 lozenge Cessation ondansetron HCl 4 mg tablet 4 mg PO Q8H PRN Nausea And Vomiting 07/01/25 07/17/25 duloxetine 30 mg capsule,delayed 30 mg PO DAILY 07/17/25 07/17/25 release fluticasone propionate 230 2 puff inhalation BID 07/17/25 07/17/25 mcg-salmeterol 21 mcg/actuation HFA inhaler (Advair HFA) Previous Rx's ?Medication ?Instructions ?Recorded albuterol sulfate 90 mcg/actuation 2 puff inhalation Q4-6H PRN 08/30/24 aerosol inhaler shortness of breath or wheezing #6.7 grams benztropine 0.5 mg tablet 0.5 mg PO BID 30 days #60 tabs 07/11/25 clonidine HCl 0.1 mg tablet 0.1 mg PO TID 30 days #90 tabs 07/11/25 haloperidol 5 mg tablet 5 mg PO TID 30 days #90 tabs 07/11/25 hydroxyzine HCl 50 mg tablet 50 mg PO DAILY PRN mild anxiety 30 07/11/25 days #30 tabs lithium carbonate 450 mg 900 mg (2 x 450 mg) PO BEDTIME 30 07/11/25 tablet,extended release days #60 tabs lorazepam 1 mg tablet 1 mg PO TID 30 days #90 tabs 07/11/25 prazosin 1 mg capsule 1 mg PO BEDTIME 30 days #30 caps 07/11/25 prazosin 5 mg capsule 15 mg PO BEDTIME 30 days #90 caps 07/11/25 trazodone 100 mg tablet 200 mg (2 x 100 mg) PO BEDTIME 30 07/11/25 days #60 tabs zolpidem 10 mg tablet 10 mg PO BEDTIME PRN insomnia 30 07/11/25 days #30 tabs Allergies Allergy/AdvReac Type Severity Reaction Status Date / Time carbamazepine (From TEGRETOL) AdvReac Mild Nausea and Verified 07/16/25 21:11 Vomiting topiramate (From Topamax) AdvReac Mild Nausea and Verified 07/16/25 21:11 Vomiting Review of Systems Review of Systems: Constitutional : No Weight loss, No Fever, No Chills, No Night Sweats, No Fatigue, No Malaise ENT/Mouth : No Hearing loss, No Ear Pain, No Nasal Congestion, No Sinus Pain, No Hoarseness, No sore throat, No Rhinorrhea, No Swallowing Difficulty Eyes: No Eye Pain, No Swelling, No Redness, No Foreign Body, No Discharge, No Vision Changes Cardiovascular : No Chest Pain, No SOB, No Dyspnea on Exertion, No Orthopnea, No Edema, No Palpitations Respiratory : No Cough, No Sputum, No Wheezing, No Smoke Exposure, No Dyspnea Gastrointestinal : No Nausea, No Vomiting, No Diarrhea, No Constipation, No abdominal Pain, No Hematochezia, No Melena Genitourinary : no irregular bleeding, No Dysuria, No Urinary Frequency, No Hematuria, No Urinary Incontinence, No Urgency, No Flank Pain, No Urinary Flow Changes, No Hesitancy Musculoskeletal : No joint pain, No Myalgias, No Joint Swelling Skin : No Skin Lesions, No rash Neuro : No Weakness, No Numbness, No Paresthesias, No Loss of Consciousness, No Dizziness, No Headache Psych : complaining of anxiety, depression, suicidal ideation, no HI Heme/Lymph: No Bruising, No Bleeding,No Lymphadenopathy Endocrine : No Polyuria, No Polydipsia, No Temperature Intolerance PMFSH Past Medical History Medical History Depression Schizoaffective disorder, depressive type Depression with suicidal ideation MDD (major depressive disorder), recurrent, severe, with psychosis Port-A-Cath in place History of electroconvulsive therapy COVID-19 COVID-19 Sprain of left foot Chronic post-traumatic stress disorder (PTSD) COPD (chronic obstructive pulmonary disease) Increased BMI GERD (gastroesophageal reflux disease) Recurrent major depression-severe Acute post-traumatic stress disorder Injury, self-inflicted Suicidal ideation Self-harming behavior Intentional self-harm Suicidal ideation Borderline personality disorder Schizoaffective disorder Adjustment disorder Asthma Depression Anxiety PTSD (post-traumatic stress disorder) Family History Family History Mother Brain cancer Other No family history of cardiac disease Social History Social History Household Members: Other Household Members Other:: [employer] Housing: Other Housing Other:: [facility] Do you presently have visiting nurse or other home services: No Alcohol intake: never Comment: pt is on 1:1 to maintain safety Patient Tobacco Use Status: Former Tobacco user Tobacco use type: Cigarette Cigarette Packs Per Day: 0.5 Cigarettes Per Day: 10.0 Years Smoked: 20 e-Cigarette/Vaping Use: Never Used Second Hand Smoke Exposure: No Substance Use Type: Marijuana Advance Directives: No Advance Directives Information Provided: Yes Do you have a plan to hurt others: No Plan service: No Current occupation: rt handed Sexual orientation: Straight/Heterosexual Physical Exam Exam: Exam: Appearance: Alert. Oriented X3. No acute distress. Eyes: Pupils equal, round and reactive to light. ENT: Pharynx normal. Neck: Normal inspection. Neck supple. No lymph nodes noted. No crepitus CVS: Normal heart rate and rhythm. Pulses normal. Normal S1 and S2 Respiratory: No respiratory distress. Breath sounds normal. No Wheezing. No rales Abdomen: Soft and nontender. No rigidity. No distention. Skin: Skin warm and dry. Normal skin color. Normal skin turgor. Extremities: No lower extremity edema. No Lacerations. No Rash Neuro: Oriented X 3. No motor deficit. No sensory deficit. Moving all extremities. No slurred speech. CN 2 through 12 grossly intact Psych: calm, cooperative, normal affect Vital Signs: Vital Signs: Last Vital Signs Temp 98.5 F 07/17/25 06:39 Pulse 56 07/17/25 06:39 Resp 20 07/17/25 06:39 BP 92/57 L 07/17/25 06:39 Pulse Ox 98 07/17/25 06:39 O2 Del Method Room Air 07/17/25 06:39 BMI result Body Mass Index 34.3 Course Course Course Narrative: All of patient's labs pending care team consult pending physician observation started 23:40 Reevaluation(s) Reevaluation #1: 2:09 PM 07/17/2025 (Dr. Triston Sherman): Patient in physician observation for psychiatric evaluation.? No acute events reported overnight. No current complaints. VS stable.? Patient is in bed search status. Will continue to monitor. Medications Administered Generic Name Dose Route Start Last Admin Trade Name Freq PRN Reason Stop Dose Admin Acetaminophen 650 mg 07/17/25 11:30 07/17/25 12:35 Acetaminophen 325 Mg Tablet PO 650 mg Q6H PRN Administration Pain/Fever Benztropine Mesylate 0.5 mg 07/17/25 12:00 07/17/25 12:35 Benztropine Mesylate 0.5 Mg Tablet PO 0.5 mg BID SULEIMAN Administration Duloxetine HCl 30 mg 07/17/25 12:15 07/17/25 13:34 Duloxetine Hcl 30 Mg Capsule.Dr PO 30 mg DAILY SULEIMAN Administration Haloperidol 5 mg 07/17/25 15:00 07/17/25 13:02 Haloperidol 5 Mg Tablet PO 5 mg TID SULEIMAN Administration Hydroxyzine HCl 50 mg 07/17/25 11:30 07/17/25 12:35 Hydroxyzine Hcl 50 Mg Tablet PO 50 mg DAILY PRN Administration mild anxiety Lorazepam 1 mg 07/17/25 15:00 07/17/25 13:02 Lorazepam 1 Mg Tablet PO 1 mg TID SULEIMAN Administration Medical Decision Making Medical Decision Making [facility] Narrative: my interpretation of labs: No significant abnormality in patient's hematology or chemistry, normal LFTs, alcohol level negative pending: Urinalysis urine test Differential Diagnosis Differential Diagnoses: The differential diagnosis associated with the presentation includes ( anxiety, depression, medication noncompliance, polysubstance abuse) Admission/Observation Consideration of admission/observation: Escalation of care including admission/observation considered ( patient is waiting to be seen by the care team to determine patient's disposition) Lab Data [facility] Lab Attestation statement: I reviewed the patient's lab results. 07/16/25 22:09 07/16/25 22:09 Labs: Lab Results 07/16/25 07/17/25 Range/Units 22:09 01:39 WBC 5.9 (4.8-10.8) X10*3/uL RBC 3.96 L (4.20-5.50) X10*6/uL Hgb 11.9 L (12.0-16.0) g/dl Hct 36.0 L (37.0-47.0) % MCV 90.9 (80.0-98.0) fL MCH 30.1 (27.0-33.0) pg MCHC 33.1 (31.0-35.0) g/dl RDW 13.0 (11.0-16.0) % Plt Count 269 (160-400) X10*3/uL MPV 10.8 (9.4-12.3) fL Immature Gran % (Auto) 0.3 (0.0-0.4) % Neut % (Auto) 67.4 (45-73) % Lymph % (Auto) 23.3 (20-40) % [place] % (Auto) 7.3 (2-11) % Eos % (Auto) 1.2 (0-4) % Baso % (Auto) 0.5 (0-2) % Lymph # (Auto) 1.4 (1.2-4.9) X10*3/uL [place] # (Auto) 0.4 (0.1-1.2) X10*3/uL Eos # (Auto) 0.1 (0.0-0.4) X10*3/uL Baso # (Auto) 0.0 (0.0-0.2) X10*3/uL Abs Immat Gran (auto) 0.02 (0.00-0.03) X10*3/uL Absolute Neuts (auto) 4.0 (2.0-8.3) x10*3/uL Absolute Nucleated RBC 0.000 (0.0-0.012) X10*3/uL Nucleated RBC % (auto) 0.0 (0.0-0.2) /100WBC Sodium 138 (135-145) mmol/L Potassium 3.6 (3.3-5.1) mmol/L Chloride 107 (96-108) mmol/L Carbon Dioxide 26 (22-29) mmol/L Anion Gap 9 L (12-20) BUN 10 (9-16) mg/dL Creatinine 0.78 (0.5-1.4) mg/dL Estim Creat Clear Calc 105.6 Estimated GFR > 60 Random Glucose 110 (60-115) mg/dL Calcium 9.4 (8.4-10.2) mg/dL Total Bilirubin 0.2 (0.0-1.0) mg/dL Direct Bilirubin < 0.2 (0.0-0.5) mg/dL AST 15 (5-31) U/L ALT 16 (0-31) U/L Alkaline Phosphatase 65 (39-117) U/L Total Protein 6.4 L (6.5-8.0) g/dL Albumin 4.1 (3.5-5.0) g/dL Urine Test NEGATIVE (NEGATIVE) Urine Opiates Screen Not Detected (Not Detect) Ur Buprenorphine Scrn Not Detected (Not Detect) ng/mL Ur Oxycodone Screen Not Detected (Not Detect) ng/mL Urine Methadone Screen Not Detected (Not Detect) ng/mL Urine Fentanyl Screen Not Detected (Not Detect) Ur Barbiturates Screen Not Detected (Not Detect) Ur Phencyclidine Scrn Not Detected (Not Detect) Ur Amphetamines Screen Not Detected (Not Detect) U Benzodiazepines Scrn Not Detected (Not Detect) Urine Cocaine Screen Not Detected (Not Detect) U Marijuana (THC) Screen Not Detected (Not Detect) Ethyl Alcohol < 10 mg/dL Critical Care Time Critical Care Time Critical Care Time: Yes Total Critical Care Time: 35 Attestation: I have personally provided critical care time. Time includes review of lab data, radiology results, discussion with consultants, and monitoring for potential decompensation. Intervention performed as documented. Discharge Plan Discharge Clinical Impression: Depression Prescriptions: No Action omeprazole 20 mg capsule,delayed release(DR/EC) 20 mg PO Q OTHER DAY cholecalciferol (vitamin D3) [Vitamin D3] 25 mcg (1,000 unit) tablet 25 mcg PO DAILY haloperidol decanoate 100 mg/mL solution 75 mg IM Q28D albuterol sulfate 90 mcg/actuation HFA aerosol inhaler 2 puff inhalation Q4-6H PRN (Reason: shortness of breath or wheezing) Qty: 6.7 0RF diphenhydramine HCl [Banophen] 50 mg capsule 100 mg PO BEDTIME Incruse Ellipta 62.5 mcg/actuation blister with device 1 inh INHALATION DAILY acetaminophen 500 mg Tablet 500 mg PO Q6H PRN (Reason: Pain/Fever) ibuprofen 600 mg Tablet 600 mg PO TID PRN (Reason: Pain) polyethylene glycol 3350 [Miralax] 17 gram/dose Powder 17 g PO DAILY PRN (Reason: Constipation) ondansetron HCl 4 mg tablet 4 mg PO Q8H PRN (Reason: Nausea And Vomiting) nicotine (polacrilex) 4 mg Lozenge 4 mg BUCCAL Q2H PRN (Reason: Smoking Cessation) clonidine HCl 0.1 mg Tablet 0.1 mg PO TID 30 Days Qty: 90 0RF Protocol: Hold for SBP< HOLD for SBP < : 90 prazosin 1 mg Capsule 1 mg PO BEDTIME 30 Days Qty: 30 0RF Protocol: Hold for SBP< HOLD for SBP < : 90 benztropine 0.5 mg Tablet 0.5 mg PO BID 30 Days Qty: 60 0RF prazosin 5 mg Capsule 15 mg PO BEDTIME 30 Days Qty: 90 0RF Protocol: Hold for SBP< HOLD for SBP < : 90 haloperidol 5 mg Tablet 5 mg PO TID 30 Days Qty: 90 0RF hydroxyzine HCl 50 mg Tablet 50 mg PO DAILY PRN (Reason: mild anxiety) 30 Days Qty: 30 0RF lithium carbonate 450 mg Tablet Extended Release 900 mg PO BEDTIME 30 Days Qty: 60 0RF lorazepam 1 mg Tablet 1 mg PO TID 30 Days Qty: 90 0RF trazodone 100 mg Tablet 200 mg PO BEDTIME 30 Days Qty: 60 0RF zolpidem 10 mg tablet 10 mg PO BEDTIME PRN (Reason: insomnia) 30 Days Qty: 30 0RF multivitamin Tablet 1 tab PO DAILY calcium carbonate-vitamin D3 600 mg-10 mcg (400 unit) tablet 1 tab PO BID cetirizine 10 mg tablet 10 mg PO DAILY fluticasone propion-salmeterol [Advair HFA] 230-21 mcg/actuation HFA aerosol inhaler 2 puff inhalation BID duloxetine 30 mg capsule,delayed release(DR/EC) 30 mg PO DAILY Interventions: Early-Suicide Risk Severity Scale Last Done: 07/16/25 21:57 Print Language: Tunisian
[2025-07-17] VITALS (7 sets, daily range): BP systolic 91–109; BP diastolic 57–81; PULSE 56–89; RESP 14–20; TEMP 36.2–36.9; O2SAT 96–98
[2025-07-17 02:09] LABS: Cannabinoid Screen Urine Not Detected (Not Detect)
[2025-07-17 02:10] LABS: UPreg QC Valid YES
--- NOTE | 2025-07-17 11:10 | PC.NURSE ---
Care is assumed at 0700, Pt sleeps late into the morning, she is calm and cooperative when she wakes and asks to talk to the care team. SHe eats breakfast and snacks. She continues to endorse SI with no plan and AVH of voices and shadows.
--- NOTE | 2025-07-17 12:13 | PHA.MEDREC ---
Pharmacy Consult ? Medication Reconciliation Pharmacy has REVIEWED the medication reconciliation done by nursing.
--- NOTE | 2025-07-17 13:29 | ECG_ITS ---
Test Reason : prolng qtc Blood Pressure : */* mmHG Vent. Rate : 64 BPM Atrial Rate : 64 BPM P-R Int : 160 ms QRS Dur : 68 ms QT Int : 418 ms P-R-T Axes : 74 83 70 degrees QTcB Int : 431 ms Normal sinus rhythm Nonspecific ST and T wave abnormality Borderline ECG When compared with ECG of 06-Jul-2025 14:44, No significant change was found Referred By: Triston Sheramn Electronically Signed By: LIZET ANN
--- NOTE | 2025-07-17 14:42 | MHC.EDTECH ---
EKG delayed due to the high volume of need in the main ED. RN aware.
[2025-07-17 16:04] LABS: Appearance Urine Clear; Glucose Urine UA Negative (Negative); PH 7.0 (5.0-9.0); Specific Gravity - Urine <= 1.005 (1.005-1.025)
[2025-07-17 16:06] LABS: UPreg QC Valid YES
--- NOTE | 2025-07-17 23:33 | PC.NURSE ---
Took over care from NINA michelle, pt sleeping at this time.
--- NOTE | 2025-07-18 00:29 | PC.NURSE ---
pt walked to rest room, medicated per oct. pt covered up in blankets, drink given.
[2025-07-18 06:32] VITALS: BP 115/74; PULSE 61; RESP 16; TEMP 36.5; O2SAT 96
--- NOTE | 2025-07-18 06:32 | PC.NURSE ---
medicated per mar.
--- NOTE | 2025-07-18 09:35 | PC.NURSE ---
Patient medicated per the MAR. Patient endorsing auditory hallucinations increasing in intensity, medicated with Hydroxyzine. Patient given breakfast tray. Request to pharmacy for Haldol Decanoate and Breo Ellipta. Patient resting quietly at this time. Safety measures in place.
[2025-07-18 14:00] VITALS: BP 109/59; PULSE 54; RESP 14; TEMP 36.6; O2SAT 98
[2025-07-18 19:30] VITALS: BP 94/68; PULSE 87; RESP 16; TEMP 36.8; O2SAT 98
[2025-07-18 20:00] VITALS: BP 89/69; PULSE 71; RESP 18; TEMP 36.2; O2SAT 95
[2025-07-18 22:04] VITALS: BP 95/56
[2025-07-18 22:20] VITALS: BP 95/56
[2025-07-18 22:34] VITALS: BMI 32.6
--- NOTE | 2025-07-19 00:30 | PC.ADMIT ---
Pt is a 40 yo female, admitted on a CV from [facility], ED for SI/SIB. Per care team assessment, Pt comes to the emergency room via ambulance from her intermediate. She reports she has not felt safe and has been engaging in self-harming behaviors via cutting and punching herself in the head. Pt reports she has been struggling recently as the holidays are coming up and this is the time of the year she lost her dad and sister. She state her depression increases around June / July every year. Pt has HX of flashbacks from witnessing her sister murder, sister was shot and killed. On unit assessment, Pt was calm, A&O X4. She endorses passive SI with no plan, AH with voices telling her to hurt herself. She was placed on 5 minutes check for SIB. Skin/safety check shows implanted port on right upper chest, and dry/crack skin on bilateral foot and toes. V/s, weight and height document. Pt declined to sign/fill any paper work due to tiredness. She states I cannot remember anything right now . She reports she doesn't feels safe on the unit and having the urge to bang or punch her head. She was encouraged to use her coping skills. Pt took all HS Meds and ate snacks before going to bed. No behavior issues/SIB noted or reported. Treatment plans and safety tools initiated.
[2025-07-19 11:02] VITALS: BP 100/55; PULSE 66; RESP 14; TEMP 36.9; O2SAT 98
[2025-07-19] MEDS: Fluticasone/Vilanterol 200/25 BLST.W.DEV 1 PUFF INHALE (11:11)
[2025-07-19 15:36] VITALS: BP 109/69
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
[2025-07-19 19:51] VITALS: BP 115/66; PULSE 81; RESP 18; TEMP 36.6; O2SAT 98
[2025-07-20 07:56] VITALS: BP 107/75; PULSE 58; RESP 20; TEMP 36.7; O2SAT 97
[2025-07-20 09:07] VITALS: BP 107/75
[2025-07-20 14:59] VITALS: BP 106/69
[2025-07-20 19:50] VITALS: BP 120/68; PULSE 78; RESP 16; TEMP 36.7; O2SAT 99
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
[2025-07-21 08:00] VITALS: BP 113/60; PULSE 97; RESP 17; TEMP 36.4; O2SAT 96
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
[2025-07-21 09:55] VITALS: BP 113/60
[2025-07-21 15:30] VITALS: BP 110/73; PULSE 87
[2025-07-21] MEDS: Lidocaine 4 % Patch ADH..PATCH 2 PATCH TRANSDERMA (16:37)
[2025-07-21 21:33] VITALS: BP 111/73; PULSE 81; RESP 18; TEMP 36.3; O2SAT 95
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
[2025-07-22 09:50] VITALS: BP 159/101; PULSE 82; RESP 16; TEMP 36.6; O2SAT 98
[2025-07-22 10:02] VITALS: BP 159/101
[2025-07-22] MEDS: Lidocaine 4 % Patch ADH..PATCH 2 PATCH TRANSDERMA (12:35)
[2025-07-22 15:36] VITALS: BP 102/60
[2025-07-22 20:53] VITALS: BP 172/99; PULSE 82; TEMP 36.7; O2SAT 97
[2025-07-23 09:00] VITALS: BP 137/96; PULSE 98; RESP 18; TEMP 36.1; O2SAT 98
[2025-07-23 09:41] VITALS: BP 137/96
[2025-07-23] MEDS: Fluticasone/Vilanterol 200/25 BLST.W.DEV 1 PUFF INHALE (09:41)
[2025-07-23 15:59] VITALS: BP 107/68
[2025-07-23 16:00] VITALS: BP 107/68; PULSE 66; RESP 16
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
[2025-07-23 21:06] VITALS: BP 108/64; PULSE 86; RESP 16; TEMP 36.4; O2SAT 97
[2025-07-24 08:00] VITALS: BP 117/74; PULSE 97; RESP 16; TEMP 36.2; O2SAT 99
[2025-07-24] MEDS: Fluticasone/Vilanterol 200/25 BLST.W.DEV 1 PUFF INHALE (08:49)
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
--- NOTE | 2025-07-24 12:36 | PC.NURSE ---
Stella engages easily for discharge review. Reports feeling ready for discharge. No reported SI/HI at this time. No self harming ideation reported or observed at this time. Denies A/V hallucinations. Discharge paperwork reviewed with patient, reports understanding. Follow up appointments reviewed with patient, reports understanding. Discharge medications reviewed, patient reports she knows her medications. All belongings taken with patient upon discharge. Crisis numbers provided, resource booklet provided.
== END 2025-07-24 12:19 | disposition other institution (70) | DRG 751 ==
LOC: HO.ED 07-17 13:14 → HO.PADLT16 07-18 16:07
PROVIDERS: Emergency Medicine; Admitting Provider Psychiatry & Neurology Psychiatry; Emergency Provider Emergency Medicine; PCP Nurse Practitioner Family; Visit Provider Psychiatry & Neurology Psychiatry
DX: F33.1 Major depressive disorder, recurrent, moderate (principal); R45.851 Suicidal ideations; F17.210 Nicotine dependence, cigarettes, uncomplicated; F43.12 Post-traumatic stress disorder, chronic; Z71.6 Tobacco abuse counseling; F60.3 Borderline personality disorder; Z79.899 Other long term (current) drug therapy
CPT/HCPCS: 36415; 80048; 80076; 80307; 81001; 81025; 85025; 93005; 99285; J1631; S9485

== ENCOUNTER → 2025-07-17 13:29 | Outpatient (BNV) | payer OTHER, SELFPAY | PROVIDERS: Admitting Provider Psychiatry & Neurology Psychiatry; Emergency Provider Emergency Medicine; PCP Nurse Practitioner Family; Visit Provider Internal Medicine | DX: Z13.6 Encounter for screening for cardiovascular disorders (principal) | CPT/HCPCS: 93010 ==

== ENCOUNTER → 2025-07-18 15:57 | Outpatient (BNV) | payer OTHER, SELFPAY | PROVIDERS: Admitting Provider Psychiatry & Neurology Psychiatry; Emergency Provider Emergency Medicine; PCP Nurse Practitioner Family; Visit Provider Psychiatry & Neurology Psychiatry | DX: F33.1 Major depressive disorder, recurrent, moderate (principal); F60.3 Borderline personality disorder; F43.12 Post-traumatic stress disorder, chronic | CPT/HCPCS: 99231 ==

== ENCOUNTER 2025-08-03 23:02 | Emergency (ER) | payer OTHER, SELFPAY ==
--- OUTSIDE RECORDS SUMMARY | 2025-03-09 04:40 | XMS_ITS ---
Author Organization [facility] Address [address] [address] Care Team Providers Care Multimedia Specialist Name Role Phone JOSE ANTONIO MENON, COLETTE Primary Care Provider Adele Meier Unavailable [phone] REASON FOR VISIT Annual IT OPERATIONS ANALYST Physical Encounters Encounter Location Date Provider Diagnosis [facility] [address] [address] 03/09/2025 Adele Fairchild Plan Of Treatment No Information Progress Notes * MELISA THORNTONDOB:1985 (40 yo F)Acc No.[id number]:03/09/2025 Progress Note Patient: MELISA VIEIRA Appointment Provider: Jeffery Fairchild M.D. :1985 A ge:39 Y S ex:Female Date:03/09/2025 Address:[address] [place], [place] [phone] Pcp:COLETTE BRADY NP Subjective: * Chief Complaints: * 1 . Annual IT OPERATIONS ANALYST Physical. * Medical History: Objective: * Vitals: Assessment: Plan: * Treatment: * Images: Billing Information: * Visit Code: * Procedure Codes: * Electronic signature of Leon Fairchild MD on 08/04/2025 at 01:00 AM EST Sign off status: Pending * Appointment Provider: Jeffery Fairchild M.D. Date: 0 03/09/2025 Generated for Lj marin/Jessika/Xiang on: 10/05/2024 01:00 AM EST
[2025-08-03 23:08] VITALS: BP 100/72; PULSE 92; O2SAT 96
[2025-08-03 23:10] VITALS: BP 110/56; PULSE 86; RESP 16; TEMP 36.3; O2SAT 96
[2025-08-03 23:14] VITALS: BMI 32.9
--- NOTE | 2025-08-04 00:53 | ED.PSYCH ---
HPI - Psych General Chief Complaint: Psychiatric Symptoms Stated Complaint: SI Time Seen by Provider: 08/03/25 23:40 Source: patient Mode of arrival: ambulatory Limitations: no limitations History of Present Illness ED Provider: Dr. Rosi Barcenas HPI Narrative: Patient comes to the emergency room complaining of feeling suicidal. Patient states the anniversary of her dad's . Patient denies hurting herself prior to arrival. Denies HI. Related Data Home Medications ?Medication ?Instructions ?Recorded ?Confirmed omeprazole 20 mg capsule,delayed 20 mg PO Q OTHER DAY 04/30/24 08/04/25 release multivitamin 1 tab PO DAILY 05/17/24 08/04/25 cholecalciferol (vitamin D3) 25 25 mcg PO DAILY 07/29/24 08/04/25 mcg (1,000 unit) tablet (Vitamin D3) calcium 600 mg (as 1 tab PO BID 11/02/24 08/04/25 carbonate)-vitamin D3 10 mcg (400 unit) tablet cetirizine 10 mg tablet 10 mg PO DAILY 11/06/24 08/04/25 duloxetine 30 mg capsule,delayed 30 mg PO DAILY 07/17/25 08/04/25 release Previous Rx's ?Medication ?Instructions ?Recorded albuterol sulfate 90 mcg/actuation 2 puff inhalation Q4-6H PRN 08/30/24 aerosol inhaler shortness of breath or wheezing #6.7 grams benztropine 0.5 mg tablet 0.5 mg PO BID 30 days #60 tabs 07/11/25 clonidine HCl 0.1 mg tablet 0.1 mg PO TID 30 days #90 tabs 07/11/25 hydroxyzine HCl 50 mg tablet 50 mg PO DAILY PRN mild anxiety 30 07/11/25 days #30 tabs lithium carbonate 450 mg 900 mg (2 x 450 mg) PO BEDTIME 30 07/11/25 tablet,extended release days #60 tabs lorazepam 1 mg tablet 1 mg PO TID 30 days #90 tabs 07/11/25 prazosin 1 mg capsule 1 mg PO BEDTIME 30 days #30 caps 07/11/25 prazosin 5 mg capsule 15 mg PO BEDTIME 30 days #90 caps 07/11/25 cyproheptadine 4 mg tablet 4 mg PO BEDTIME 30 days #30 tabs 07/23/25 diphenhydramine HCl 50 mg capsule 50 mg PO BEDTIME insomnia 30 days 07/23/25 (Banophen) #30 caps sennosides 8.6 mg tablet (Senna 17.2 mg (2 x 8.6 mg) PO BEDTIME 14 07/23/25 Lax) days #28 tabs Allergies Allergy/AdvReac Type Severity Reaction Status Date / Time carbamazepine (From TEGRETOL) AdvReac Mild Nausea and Verified 08/03/25 23:16 Vomiting topiramate (From Topamax) AdvReac Mild Nausea and Verified 08/03/25 23:16 Vomiting Review of Systems Review of Systems: Constitutional : No Weight loss, No Fever, No Chills, No Night Sweats, No Fatigue, No Malaise ENT/Mouth : No Hearing loss, No Ear Pain, No Nasal Congestion, No Sinus Pain, No Hoarseness, No sore throat, No Rhinorrhea, No Swallowing Difficulty Eyes: No Eye Pain, No Swelling, No Redness, No Foreign Body, No Discharge, No Vision Changes Cardiovascular : No Chest Pain, No SOB, No Dyspnea on Exertion, No Orthopnea, No Edema, No Palpitations Respiratory : No Cough, No Sputum, No Wheezing, No Smoke Exposure, No Dyspnea Gastrointestinal : No Nausea, No Vomiting, No Diarrhea, No Constipation, No abdominal Pain, No Hematochezia, No Melena Genitourinary : no irregular bleeding, No Dysuria, No Urinary Frequency, No Hematuria, No Urinary Incontinence, No Urgency, No Flank Pain, No Urinary Flow Changes, No Hesitancy Musculoskeletal : No joint pain, No Myalgias, No Joint Swelling Skin : No Skin Lesions, No rash Neuro : No Weakness, No Numbness, No Paresthesias, No Loss of Consciousness, No Dizziness, No Headache Psych : Complaining of anxiety and depression, vague SI, no HI Heme/Lymph: No Bruising, No Bleeding,No Lymphadenopathy Endocrine : No Polyuria, No Polydipsia, No Temperature Intolerance PMFSH Past Medical History Medical History Depression Schizoaffective disorder, depressive type Depression with suicidal ideation MDD (major depressive disorder), recurrent, severe, with psychosis Port-A-Cath in place History of electroconvulsive therapy COVID-19 COVID-19 Sprain of left foot Chronic post-traumatic stress disorder (PTSD) COPD (chronic obstructive pulmonary disease) Increased BMI GERD (gastroesophageal reflux disease) Recurrent major depression-severe Acute post-traumatic stress disorder Injury, self-inflicted Suicidal ideation Self-harming behavior Intentional self-harm Suicidal ideation Borderline personality disorder Schizoaffective disorder Adjustment disorder Asthma Depression Anxiety PTSD (post-traumatic stress disorder) Family History Family History Mother Brain cancer Other No family history of cardiac disease Social History Social History Household Members: Other Household Members Other:: [employer] Housing: Assisted Living Facility Housing Other:: nursing home Do you presently have visiting nurse or other home services: No Alcohol intake: never Comment: 5 min safety checks to maintain safety Patient Tobacco Use Status: Current everyday Tobacco user Tobacco use type: Cigarette Cigarette Packs Per Day: 0.5 Cigarettes Per Day: 10.0 Years Smoked: 20 e-Cigarette/Vaping Use: Former Use Second Hand Smoke Exposure: No Use of substances other than those prescribed or required for medical reasons: No Substance Use Type: Marijuana Advance Directives: No Advance Directives Information Provided: No Do you have a plan to hurt others: Vague service: No Current occupation: rt handed Sexual orientation: Straight/Heterosexual Physical Exam Exam: Exam: Appearance: Alert. Oriented X3. No acute distress. Eyes: Pupils equal, round and reactive to light. ENT: Pharynx normal. Neck: Normal inspection. Neck supple. No lymph nodes noted. No crepitus CVS: Normal heart rate and rhythm. Pulses normal. Normal S1 and S2 Respiratory: No respiratory distress. Breath sounds normal. No Wheezing. No rales Abdomen: Soft and nontender. No rigidity. No distention. Skin: Skin warm and dry. Normal skin color. Normal skin turgor. Extremities: No lower extremity edema. No Lacerations. No Rash Neuro: Oriented X 3. No motor deficit. No sensory deficit. Moving all extremities. No slurred speech. CN 2 through 12 grossly intact Psych: calm, cooperative, normal affect Vital Signs: Vital Signs: Last Vital Signs Temp 97.0 F 08/04/25 07:50 Pulse 64 08/04/25 07:50 Resp 16 08/04/25 07:50 BP 139/69 08/04/25 07:50 Pulse Ox 100 08/04/25 07:50 O2 Del Method Room Air 08/04/25 07:50 BMI result Body Mass Index 32.9 Course Course Course Narrative: All of patient's labs pending Care team consult pending Physician observation started at 01:00 Reevaluation(s) Reevaluation #1: 9:08 AM 08/04/2025 (Tyson Lyman MD): The patient is a 40-year-old female with frequent visits to the emergency room for behavioral health issues. She came to the emergency room yesterday evening complaining of depression and suicidal ideation. She was medically cleared for evaluation by the care team. She was seen by the care team this morning. The care team feels the patient may be discharged to returned [facility] her [facility]. She is feeling better th Time: 09:09 Medical Decision Making Differential Diagnosis Differential Diagnoses: The differential diagnosis associated with the presentation includes (Anxiety, depression, PTSD) Admission/Observation Consideration of admission/observation: Escalation of care including admission/observation considered (Patient is under physician observation waiting to be seen by the care team.) Lab Data 08/04/25 03:55 08/04/25 03:55 Labs: Lab Results 08/04/25 08/04/25 Range/Units 01:32 03:55 WBC 8.3 (4.8-10.8) X10*3/uL RBC 3.93 L (4.20-5.50) X10*6/uL Hgb 12.0 (12.0-16.0) g/dl Hct 35.3 L (37.0-47.0) % MCV 89.8 (80.0-98.0) fL MCH 30.5 (27.0-33.0) pg MCHC 34.0 (31.0-35.0) g/dl RDW 12.7 (11.0-16.0) % Plt Count 265 (160-400) X10*3/uL MPV 10.5 (9.4-12.3) fL Immature Gran % (Auto) 0.5 H (0.0-0.4) % Neut % (Auto) 71.7 (45-73) % Lymph % (Auto) 19.1 L (20-40) % Churchill % (Auto) 6.9 (2-11) % Eos % (Auto) 1.4 (0-4) % Baso % (Auto) 0.4 (0-2) % Lymph # (Auto) 1.6 (1.2-4.9) X10*3/uL Churchill # (Auto) 0.6 (0.1-1.2) X10*3/uL Eos # (Auto) 0.1 (0.0-0.4) X10*3/uL Baso # (Auto) 0.0 (0.0-0.2) X10*3/uL Abs Immat Gran (auto) 0.04 H (0.00-0.03) X10*3/uL Absolute Neuts (auto) 6.0 (2.0-8.3) x10*3/uL Absolute Nucleated RBC 0.000 (0.0-0.012) X10*3/uL Nucleated RBC % (auto) 0.0 (0.0-0.2) /100WBC Sodium 138 (135-145) mmol/L Potassium 3.6 (3.3-5.1) mmol/L Chloride 108 (96-108) mmol/L Carbon Dioxide 23 (22-29) mmol/L Anion Gap 11 L (12-20) BUN 9 (9-16) mg/dL Creatinine 0.69 (0.5-1.4) mg/dL Estim Creat Clear Calc 108.4 Estimated GFR > 60 Random Glucose 124 H (60-115) mg/dL Calcium 9.3 (8.4-10.2) mg/dL Total Bilirubin 0.2 (0.0-1.0) mg/dL AST 12 (5-31) U/L ALT 18 (0-31) U/L Alkaline Phosphatase 67 (39-117) U/L Total Protein 6.5 (6.5-8.0) g/dL Albumin 4.0 (3.5-5.0) g/dL Urine Color Yellow Urine Appearance Clear Urine pH 6.5 (5.0-9.0) Ur Specific [place] <= 1.005 (1.005-1.025) Urine Protein Negative (Neg-Trace) mg/dL Urine Glucose (UA) Negative (Negative) mg/dL Urine Ketones Negative (Negative) mg/dL Urine Blood Negative (Negative) Urine Nitrite Negative (Negative) Ur Leukocyte Esterase Negative (Negative) Urine Test NEGATIVE (NEGATIVE) Salicylates < 5.0 L (15-30) mg/dL Urine Opiates Screen Not Detected (Not Detect) Ur Buprenorphine Scrn Not Detected (Not Detect) ng/mL Ur Oxycodone Screen Not Detected (Not Detect) ng/mL Urine Methadone Screen Not Detected (Not Detect) ng/mL Urine Fentanyl Screen Not Detected (Not Detect) Acetaminophen < 3 (<30) mcg/mL Ur Barbiturates Screen Not Detected (Not Detect) Ur Phencyclidine Scrn Not Detected (Not Detect) Ur Amphetamines Screen Not Detected (Not Detect) U Benzodiazepines Scrn Not Detected (Not Detect) [place] 1.27 H (0.60-1.20) mmol/L Urine Cocaine Screen Not Detected (Not Detect) U Marijuana (THC) Screen Not Detected (Not Detect) Ethyl Alcohol < 10 mg/dL Critical Care Time Critical Care Time Critical Care Time: Yes Total Critical Care Time: 35 Attestation: I have personally provided critical care time. Time includes review of lab data, radiology results, discussion with consultants, and monitoring for potential decompensation. Intervention performed as documented. Discharge Plan Discharge Clinical Impression: Depression, Bipolar disorder Patient Disposition: Home, Self-Care Additional Instructions: Please follow up soon with your regular medical and mental health providers. You were seen in our Emergency Department today for treatment of a behavioral health issue. It is important after your visit that you follow up with either your behavioral health provider or a primary care doctor within 7 days.? If you have trouble finding a therapist you can reach out to [address] [phone] The National Suicide and Crisis Lifeline can be reached 7 days a week 24 hours a day.? Call 988 to speak with someone.? Return for any worsening symptoms or concerns such as thoughts of self harm or harm to others. Please call 911 if you feel your mental health is worsening.? Prescriptions: No Action omeprazole 20 mg capsule,delayed release(DR/EC) 20 mg PO Q OTHER DAY cholecalciferol (vitamin D3) [Vitamin D3] 25 mcg (1,000 unit) tablet 25 mcg PO DAILY albuterol sulfate 90 mcg/actuation HFA aerosol inhaler 2 puff inhalation Q4-6H PRN (Reason: shortness of breath or wheezing) Qty: 6.7 0RF clonidine HCl 0.1 mg Tablet 0.1 mg PO TID 30 Days Qty: 90 0RF Protocol: Hold for SBP< HOLD for SBP < : 90 prazosin 1 mg Capsule 1 mg PO BEDTIME 30 Days Qty: 30 0RF Protocol: Hold for SBP< HOLD for SBP < : 90 benztropine 0.5 mg Tablet 0.5 mg PO BID 30 Days Qty: 60 0RF prazosin 5 mg Capsule 15 mg PO BEDTIME 30 Days Qty: 90 0RF Protocol: Hold for SBP< HOLD for SBP < : 90 hydroxyzine HCl 50 mg Tablet 50 mg PO DAILY PRN (Reason: mild anxiety) 30 Days Qty: 30 0RF lithium carbonate 450 mg Tablet Extended Release 900 mg PO BEDTIME 30 Days Qty: 60 0RF lorazepam 1 mg Tablet 1 mg PO TID 30 Days Qty: 90 0RF multivitamin Tablet 1 tab PO DAILY calcium carbonate-vitamin D3 600 mg-10 mcg (400 unit) tablet 1 tab PO BID cetirizine 10 mg tablet 10 mg PO DAILY duloxetine 30 mg capsule,delayed release(DR/EC) 30 mg PO DAILY cyproheptadine 4 mg Tablet 4 mg PO BEDTIME 30 Days Qty: 30 0RF sennosides [Senna Lax] 8.6 mg Tablet 17.2 mg PO BEDTIME 14 Days Qty: 28 0RF diphenhydramine HCl [Banophen] 50 mg capsule 50 mg PO BEDTIME 30 Days Qty: 30 0RF Referrals: Hafsa Holcomb NP [Primary Care Provider, Medical] Interventions: [place]-Suicide Risk Severity Scale Last Done: 08/03/25 23:16 Print Language: Setswana
--- OUTSIDE RECORDS SUMMARY | 2025-08-04 01:00 | XMS_ITS | Patient Health Record ---
Author Organization [facility] Address [address] [place] [address] Care Team Providers Care Freight Handler Name Role Phone COLETTE BRADY NP Primary Care Provider Adele Meier Unavailable [phone] Reason For Referral No Information Encounters Encounter Location Date Provider Diagnosis [facility] [address] [place] [address] 03/09/2025 Adele Fairchild Plan Of Treatment No Information Insurance Providers Payer Name Payer Address Payer Phone Subscriber Number Group Number Insured Name Patient Relationship to Insured Coverage Start Date Coverage End Date [facility] [address] [place] [id number] [phone] MELISA THORNTON Self - patient is the insured
--- OUTSIDE RECORDS SUMMARY | 2025-08-04 01:00 | XMS_ITS | Clinical Summary ---
Author Organization [facility] Address [address] [place] [id number] Phone Care Team Providers Care Lens Examiner Name Role Phone Marcela Gaivria MD Primary Care Provider [phone] Allergies Active Allergy Reactions Criticality Noted Date [...] topic Medical Devices Not on file Insurance [employer] [facility] [place] [facility] [facility] [place] [employer] Labs [facility] [place] [facility] Kind Intelligence[facility] [place] Member Subscriber Plan / Payer (Ef fective 2020-Present) Name:Stella Capps Relation to Subscriber:Self Name:Stella Capps Payer ID:[id number] Group ID:Not on file Type:Medicaid Address: [place] [address] [place] [address] [facility] [place] [facility] [employer] [facility] [place] [address] [place] [address] [facility] [facility] Care Teams Lens Examiner Relationship Specialty Start Date End Date Marcela Gaviria MD [address] [place] [id number] PCP - General Internal Medicine 12/20/23 Additional Source Comments The information contained in this document represents components of the legal health record. It is not the complete legal health record.[facility]
[2025-08-04 01:39] LABS: Appearance Urine Clear; Glucose Urine UA Negative (Negative); PH 6.5 (5.0-9.0); Specific Gravity - Urine <= 1.005 (1.005-1.025); UPreg QC Valid YES
[2025-08-04 01:49] LABS: Cannabinoid Screen Urine Not Detected (Not Detect)
--- NOTE | 2025-08-04 02:19 | PC.NURSE ---
Recieved patient. metal furniture panel coverer completed with Security & Tech present. UA obtained. Endorses +SI with no plan d/t anniversary of father's . Told t/w I'm not here to talk to Care Team. I just want some support. Denies HI/AVH. Reports she's been taking her psychiatric medications as scheduled. 15 minute safety checks initiated. Continue plan for lab f/u & Care Team Eval. Will obtain blood sample in AM.
--- NOTE | 2025-08-04 02:42 | PC.NURSE ---
Med req completed per medical record received. Last updated as of 07/24/25. Patient reports she received all scheduled medications before arriving to [facility].
[2025-08-04 03:59] LABS: MANUAL DIFF FLAG NO
[2025-08-04 04:31] LABS: Acetaminophen LAB < 3 mcg/mL (<30); Carbon Dioxide 23 mmol/L (22-29); Chloride 108 mmol/L (96-108); Lithium 1.27 mmol/L (0.60-1.20); Potassium 3.6 mmol/L (3.3-5.1); Salicylate < 5.0 mg/dL (15-30); Sodium 138 mmol/L (135-145)
[2025-08-04 04:32] LABS: Alanine Aminotransferase 18 U/L (0-31); Albumin Level 4.0 g/dL (3.5-5.0); Anion Gap 11 (12-20); Aspartate Amino Transferase 12 U/L (5-31); Blood Urea Nitrogen 9 mg/dL (9-16); Calcium 9.3 mg/dL (8.4-10.2); Creatinine Clr Calc Pharmacy 108.4; Estimated Glomerular Filt Rate > 60; Total Protein 6.5 g/dL (6.5-8.0)
[2025-08-04 04:33] LABS: Alkaline Phosphatase 67 U/L (39-117)
[2025-08-04 05:38] LABS: Hematocrit 35.3 % (37.0-47.0); Hemoglobin 12.0 g/dl (12.0-16.0); Imm Gran Abs Auto 0.04 X10*3/uL (0.00-0.03); Imm Gran Pct Auto 0.5 % (0.0-0.4); Lymphocytes Absolute Auto 1.6 X10*3/uL (1.2-4.9); Mean Corpuscular HGB Conc 34.0 g/dl (31.0-35.0); Mean Corpuscular Hemoglobin 30.5 pg (27.0-33.0); Mean Corpuscular Volume 89.8 fL (80.0-98.0); NRBC Abs Auto 0.000 X10*3/uL (0.0-0.012); NRBC Pct Auto 0.0 /100WBC (0.0-0.2); Platelet Count 265 X10*3/uL (160-400); Red Blood Count 3.93 X10*6/uL (4.20-5.50); White Blood Count 8.3 X10*3/uL (4.8-10.8)
[2025-08-04 06:28] VITALS: RESP 16
[2025-08-04 07:50] VITALS: BP 139/69; PULSE 64; RESP 16; TEMP 36.1; O2SAT 100
[2025-08-04 09:18] VITALS: BP 139/69; PULSE 64; RESP 16; TEMP 36.1; O2SAT 100
== END 2025-08-04 09:26 | disposition home or self-care (01) ==
PROVIDERS: Emergency Provider Emergency Medicine; PCP Nurse Practitioner Family
DX: F31.9 Bipolar disorder, unspecified (principal); F41.9 Anxiety disorder, unspecified; K21.9 Gastro-esophageal reflux disease without esophagitis; J45.909 Unspecified asthma, uncomplicated; F17.200 Nicotine dependence, unspecified, uncomplicated; Z71.6 Tobacco abuse counseling; Z79.899 Other long term (current) drug therapy
CPT/HCPCS: 36415; 80053; 80143; 80178; 80179; 80307; 81003; 81025; 85025; 99285; S9485

== ENCOUNTER 2025-08-10 14:31 | Emergency (ER) | payer OTHER, SELFPAY ==
--- OUTSIDE RECORDS SUMMARY | 2025-03-09 04:40 | XMS_ITS ---
Author Organization [facility] Address [address] [address] Care Team Providers Care Ticket Speculator Name Role Phone JOSE ANTONIO MENON, COLETTE Primary Care Provider Adele Meier Unavailable [phone] REASON FOR VISIT Annual HOUSEKEEPER AND LAUNDRY ASSISTANT Physical Encounters Encounter Location Date Provider Diagnosis [facility] [address] [address] 03/09/2025 Adele Fairchild Plan Of Treatment No Information Progress Notes * MELISA THORNTONDOB:1985 (40 yo F)Acc No.[id number]:03/09/2025 Progress Note Patient: MELISA VIEIRA Appointment Provider: Jeffery Fairchild M.D. :1985 A ge:39 Y S ex:Female Date:03/09/2025 Address:[address] [place], [place] [phone] Pcp:COLETTE BRADY NP Subjective: * Chief Complaints: * 1 . Annual HOUSEKEEPER AND LAUNDRY ASSISTANT Physical. * Medical History: Objective: * Vitals: Assessment: Plan: * Treatment: * Images: Billing Information: * Visit Code: * Procedure Codes: * Electronic signature of Leon Fairchild MD on 08/10/2025 at 03:47 PM EST Sign off status: Pending * Appointment Provider: Jeffery Fairchild M.D. Date: 0 03/09/2025 Generated for Lj marin/Jessika/Nickolasitting on: 10/11/2024 03:47 PM EST
--- OUTSIDE RECORDS SUMMARY | 2025-08-05 23:59 | XMS_ITS | Continuity of Care Document ---
Author Organization [facility] Address [address] [place] [address]- Support Name Relationship Address Phone THORNTON, CRYSTAL [...] Other Unknown Unavailable Care Team Providers Care Tier And Detonator Name Role Phone Zhang MENON Hafsa [id number] [address] [place] [address]- Attending Physician: Yaquelin Tineo MD Encounter Type: Pre Office Visit Allergies, Adverse Reactions, Alerts Substance [...] Refills, Maintenance, 06/28/25 1:30:00 PM EST, [facility]erosol, [facility], Partial fill upon patient request if [...] 1 Refills, Maintenance, 03/08/25 4:02:00 PM EDT, [facility], 14, Apply twice daily to wounds, 150, [...] Refills, Maintenance, 03/26/25 12:49:00 PM EDT, Tablet, [facility], Partial fill upon patient request if [...] 1 Refills, Maintenance, 04/18/25 10:40:00 AM EDT, [facility], 150, cm, 04/18/25 10:32:00 EDT, Height, [...] 3 Refills, Maintenance, 03/26/25 12:57:00 PM EDT, [facility], Partial fill upon patient request if [...] Refills, Maintenance, 05/11/24 3:03:00 PM EDT, Gel, [facility] [place], [place], Partial fill upon patient request if [...] Soft Stop, 05/28/25 10:28:00 AM EDT, Tablet, [facility], Partial fill upon patient request if the [...] Refills, Maintenance, 03/26/25 10:42:00 AM EDT, Nasal Eddy, [facility], Partial fill upon patient request [...] 06/29/24 1:29:00 PM EST, Powder, [facility] - [place], [place], Partial fill upon patient request if [...] 4 to 8 oz of beverage, # 1,907 Gm, 3 Refills, Acute 03/21/26 12:56:00 PM EDT, 03/26/25 12:56:00 PM EDT, REC Powder, [facility], Partial fill upon patient request if [...] Refills, Maintenance, 05/08/25 10:22:00 AM EDT, Tablet, [facility], Partial fill upon patient request if [...] Maintenance, 03/26/25 12:49:00 PM EDT, EC Tablet, [facility], Partial fill upon patient request if [...] PM EDT, 05/17/25 12:59:00 PM EDT, Tablet, [facility], Partial fill upon patient request if theprescription [...] 0 Refills, Maintenance, 02/05/25 2:22:00 PM EDT, Eddy, [facility] - [place], [place], Partial fill upon patient request if [...] Refills, Maintenance, 04/18/25 10:39:00 AM EDT, Aerosol, [facility], Partial fill upon patient request [...] Team Personnel Name: Lynnette Veloz RN Position: [facility] Reji RN Member Role: Primary Care Nurse Name: Shaylee Schilling RN Position: [facility] RN Member Role: Primary Care Nurse Name: Arlen Charles RN Position: [facility] RN Member Role: Primary Care Nurse Name: Sofía Reno RN Position: [facility] IVANNA Nurse Member Role: Primary Care Nurse Name: Arlen Villarreal RN Position: [facility] IONA RN W/OE and Tasks Member Role: Primary Care Nurse Name: Hafsa Holcomb NP Position: [facility] PCO Associate Professional Member Role: PCP Address: [address] [place] [address] [address] [place] [address]- [place] [employer]: Name: Felicia Shaw RN Position: [facility] ED RN W/OE and Tasks Member Role: Primary Care Nurse Name: Rosio Medrano RN Position: [facility] AMB Nurse Member Role: Primary Care Nurse Name: Paige Turner RN Position: [facility] Civil Service Worker Member Role: Primary Care Nurse Name: Kristie Haddad RN Position: [facility] RN Member Role: Primary Care Nurse Name: Venkat Hobson RN Position: [facility] Civil Service Worker Member Role: Primary Care Nurse Name: Balbir Peace MD Position: [facility] Physician - Behavioral Health Member Role: Lifetime Consulting Physician Address: [address] [place] [id number] Telecom: Care Team Related Persons Name: CORY HONG Name: VICENTA BECKMAN Name: STEVEN CAMPBELL Name: CHARLY THORNTON Name: GAVIN THORNTON Insurance Providers Guarantor name: DXY Plan Information #: 1 Payer: [facility] Payer Identifier: RIMA Member Number: [id number] Group Number: [id number] Subscriber Identifier: [id number] Relationship to Subscriber: self Coverage Type: Medicaid (Managed Care) Coverage Verification Date: NA Telecom: NA Address:
--- OUTSIDE RECORDS SUMMARY | 2025-08-05 23:59 | XMS_ITS | Continuity of Care Document ---
Author Organization [facility] Address [address] [place] [address]- Support Name Relationship Address Phone THORNTON, CRYSTAL [...] Other Unknown Unavailable Care Team Providers Care Community Health Navigator Name Role Phone Hafsa Holcomb NP Primary Care Physician [phone] Encounter [facility] [id number] Date(s): 07/06/25 - 08/05/25 [facility] [address] [place] [address]- Attending Physician: Ro Heath Admitting Physician: Ro [...] Refills, Maintenance, 06/28/25 1:30:00 PM EST, Aerosol, [facility], Partial fill upon patient request [...] 1 Refills, Maintenance, 03/08/25 4:02:00 PM EDT, [facility], 14, Apply twice daily to wounds, 150, [...] Refills, Maintenance, 03/26/25 12:49:00 PM EDT, Tablet, [facility], Partial fill upon patient request [...] 1 Refills, Maintenance, 04/18/25 10:40:00 AM EDT, [facility], 150, cm, 04/18/25 10:32:00 EDT, [...] 3 Refills, Maintenance, 03/26/25 12:57:00 PM EDT, [facility], Partial fill upon patient request if [...] Refills, Maintenance, 05/11/24 3:03:00 PM EDT, Gel, [facility] [address] [place], [place], Partial fill upon patient request if [...] Soft Stop, 05/28/25 10:28:00 AM EDT, Tablet, [facility], Partial fill upon patient request [...] Refills, Maintenance, 03/26/25 10:42:00 AM EDT, Nasal [place], [facility], Partial fill upon patient request [...] Refills, Maintenance, 06/29/24 1:29:00 PM EST, [place], [facility] - [place], [place], Partial fill upon patient request if [...] EDT, 03/26/25 12:56:00 PM EDT, REC [place], [facility], Partial fill upon patient request [...] Refills, Maintenance, 05/08/25 10:22:00 AM EDT, Tablet, [facility], Partial fill upon patient request if [...] Maintenance, 03/26/25 12:49:00 PM EDT, EC Tablet, [facility], Partial fill upon patient request [...] PM EDT, 05/17/25 12:59:00 PM EDT, Tablet, [facility], Partial fill upon patient request [...] 0 Refills, Maintenance, 02/05/25 2:22:00 PM EDT, [place], [facility] - [place], [place], Partial fill upon patient request if the [...] Refills, Maintenance, 04/18/25 10:39:00 AM EDT, Aerosol, [facility], Partial fill upon patient request [...] syndrome Confirmed Active Urinary incontinence Confirmed Active Cytology report of Cervical or vaginal smear or scraping Cyto stain * Event Display: TUBE WRAPPER Pap Test, Non- Authored Date: Patient Care team information Care Team Personnel Name: Lynnette Veloz RN Position: [facility] Rad RN Member Role: Primary Care Nurse Name: Shaylee Schilling RN Position: [facility] RN Member Role: Primary Care Nurse Name: Arlen Charles RN Position: [facility] RN Member Role: Primary Care Nurse Name: Sofía Reno RN Position: [facility] AMB Nurse Member Role: Primary Care Nurse Name: Arlen Villarreal RN Position: [facility] ED RN W/OE and Tasks Member Role: Primary Care Nurse Name: Hafsa Holcomb NP Position: [facility] PCO Associate Professional Member Role: PCP Address: [address] [place] [address] [address]rd Floor [facility] [place] [address]- [place] Telecom: Name: Felicia Shaw RN Position: [facility] ED RN W/OE and Tasks Member Role: Primary Care Nurse Name: Rosio Medrano RN Position: [facility] AMB Nurse Member Role: Primary Care Nurse Name: Paige Turner RN Position: [facility] First Aid Teacher Member Role: Primary Care Nurse Name: Kristie Haddad RN Position: [facility] RN Member Role: Primary Care Nurse Name: Venkat Hobson RN Position: [facility] First Aid Teacher Member Role: Primary Care Nurse Name: Balbir Peace MD Position: [facility] Physician - Behavioral Health Member Role: Lifetime Consulting Physician Address: [address] [place] [address]- Telecom: Care Team Related Persons Name: CORY HONG Name: VICENTA BECKMAN Name: STEVEN CAMPBELL Name: CHARLY THORNTON Name: GAVIN THORNTON Insurance Providers Guarantor name: [employer] Plan Information #: 1 Payer: [employer] [place] Payer Identifier: RIMA Member Number: [id number] Group Number: [id number] Subscriber Identifier: RIMA Relationship to Subscriber: self Coverage Type: Medicaid (Managed Care) Coverage Verification Date: RIMA Telecom: RIMA Address: NA
--- OUTSIDE RECORDS SUMMARY | 2025-08-09 23:59 | XMS_ITS | Continuity of Care Document ---
Author Organization [facility] Address [address] [place] [address]- Support Name Relationship Address Phone THORNTON, CRYSTAL [...] Other Unknown Unavailable Care Team Providers Care Produce Buyer Name Role Phone Hafsa Holcomb NP Primary Care Physician [place] [facility] [place] 07/10/25 - 08/09/[address] [address]- Encounter Type: Triage Allergies, Adverse Reactions, Alerts [...] Refills, Maintenance, 06/28/25 1:30:00 PM EST, Aerosol, [facility], Partial fill upon patient request if [...] 1 Refills, Maintenance, 03/08/25 4:02:00 PM EDT, [facility], 14, Apply twice daily to [...] Refills, Maintenance, 03/26/25 12:49:00 PM EDT, Tablet, [facility], Partial fill upon patient request if [...] 1 Refills, Maintenance, 04/18/25 10:40:00 AM EDT, [facility], 150, cm, 04/18/25 10:32:00 EDT, Height, [...] 3 Refills, Maintenance, 03/26/25 12:57:00 PM EDT, [facility], Partial fill upon patient request if [...] Refills, Maintenance, 05/11/24 3:03:00 PM EDT, Gel, [facility] [address] [place], [place], Partial fill upon patient request if [...] Soft Stop, 05/28/25 10:28:00 AM EDT, Tablet, [facility], Partial fill upon patient request if the [...] Refills, Maintenance, 03/26/25 10:42:00 AM EDT, Nasal [place], [facility], Partial fill upon patient request if [...] Refills, Maintenance, 06/29/24 1:29:00 PM EST, [place], [facility] - [place], [place], Partial fill upon patient request if [...] EDT, 03/26/25 12:56:00 PM EDT, REC [place], [facility], Partial fill upon patient request if [...] Refills, Maintenance, 05/08/25 10:22:00 AM EDT, Tablet, [facility], Partial fill upon patient request if [...] Maintenance, 03/26/25 12:49:00 PM EDT, EC Tablet, [facility], Partial fill upon patient request if [...] PM EDT, 05/17/25 12:59:00 PM EDT, Tablet, [facility], Partial fill upon patient request if [...] 0 Refills, Maintenance, 02/05/25 2:22:00 PM EDT, [place], [facility] - [place], [place], Partial fill upon patient request if [...] Refills, Maintenance, 04/18/25 10:39:00 AM EDT, Aerosol, [facility], Partial fill upon patient request if [...] Team Personnel Name: Lynnette Veloz RN Position: [facility] Reji RN Member Role: Primary Care Nurse Name: Shyalee Schilling RN Position: [facility] RN Member Role: Primary Care Nurse Name: Arlen Charles RN Position: [facility] RN Member Role: Primary Care Nurse Name: Sofía Reno RN Position: [facility] IVANNA Nurse Member Role: Primary Care Nurse Name: Arlen Villarreal RN Position: [facility] [place] RN W/OE and Tasks Member Role: Primary Care Nurse Name: Hafsa Holcomb NP Position: [facility] PCO Associate Professional Member Role: PCP Address: [address] [place] [id number]- [place] Telecom: Name: Felicia Shaw RN Position: [facility] [place] RN W/OE and Tasks Member Role: Primary Care Nurse Name: Rosio Medrano RN Position: [facility] AMB Nurse Member Role: Primary Care Nurse Name: Johnny WOOD, Paige Llanes Position: [facility] Hospital Data Entry Technician Member Role: Primary Care Nurse Name: Kristie Haddad RN Position: [facility] RN Member Role: Primary Care Nurse Name: Venkat Hobson RN Position: [facility] Data Entry Technician Member Role: Primary Care Nurse Name: Balbir Peace MD Position: [facility] Physician - Behavioral Health Member Role: Lifetime Consulting Physician Address: [address] [place] [address] Telecom: Care Team Related Persons Name: CORY HONG Name: VICENTA BECKMAN Name: STEVEN CAMPBELL Name: CHARLY THORNTON Name: GAVIN THORNTON Insurance Providers Guarantor name: [employer] Plan Information #: 1 Payer: [facility] Payer Identifier: RIMA Member Number: [id number] Group Number: [id number] Subscriber Identifier: NA Relationship to Subscriber: self Coverage Type: Medicaid (Managed Care) Coverage Verification Date: NA Telecom: NA Address:
[2025-08-10 14:48] VITALS: BP 120/80; PULSE 85; RESP 16; TEMP 36.4; O2SAT 97
[2025-08-10 14:50] VITALS: BP 112/80; BP 120/80; PULSE 104; PULSE 85; RESP 16; TEMP 36.4; O2SAT 97; O2SAT 98; BMI 40.0
--- NOTE | 2025-08-10 14:58 | ED.GENADULT ---
HPI - General Adult General Chief complaint: Psychiatric Symptoms Stated complaint: PSYCH SI Time Seen by Provider: 08/10/25 14:58 Source: patient and EMS Mode of arrival: EMS Limitations: no limitations History of Present Illness ED Provider: Kaylee Hilario PA-C HPI narrative: Patient is a 40 year old assigned female at with a history history of COPD, PTSD, adjustment disorder, schizoaffective disorder, and borderline personality disorder presenting to the emergency department today with suicidal ideation. Patient states that she is feeling more depressed and having thoughts of hurting herself. Patient denies any thoughts of hurting anyone else. Patient denies any other complaints at this time. Related Data Home Medications ?Medication ?Instructions ?Recorded ?Confirmed omeprazole 20 mg capsule,delayed 20 mg PO Q OTHER DAY 04/30/24 08/10/25 release multivitamin 1 tab PO DAILY 05/17/24 08/10/25 cholecalciferol (vitamin D3) 25 25 mcg PO DAILY 07/29/24 08/10/25 mcg (1,000 unit) tablet (Vitamin D3) calcium 600 mg (as 1 tab PO BID 11/02/24 08/10/25 carbonate)-vitamin D3 10 mcg (400 unit) tablet cetirizine 10 mg tablet 10 mg PO DAILY 11/06/24 08/10/25 duloxetine 30 mg capsule,delayed 30 mg PO DAILY 07/17/25 08/10/25 release haloperidol 5 mg tablet 5 mg PO TID 08/10/25 08/10/25 haloperidol decanoate 50 mg/mL 50 mg IM QMONTH 08/10/25 08/10/25 intramuscular solution zolpidem 10 mg tablet 10 mg PO BEDTIME PRN insomnia 08/10/25 08/10/25 Previous Rx's ?Medication ?Instructions ?Recorded albuterol sulfate 90 mcg/actuation 2 puff inhalation Q4-6H PRN 08/30/24 aerosol inhaler shortness of breath or wheezing #6.7 grams benztropine 0.5 mg tablet 0.5 mg PO BID 30 days #60 tabs 07/11/25 clonidine HCl 0.1 mg tablet 0.1 mg PO TID 30 days #90 tabs 07/11/25 hydroxyzine HCl 50 mg tablet 50 mg PO DAILY PRN mild anxiety 30 07/11/25 days #30 tabs lithium carbonate 450 mg 900 mg (2 x 450 mg) PO BEDTIME 30 07/11/25 tablet,extended release days #60 tabs lorazepam 1 mg tablet 1 mg PO TID 30 days #90 tabs 07/11/25 prazosin 1 mg capsule 1 mg PO BEDTIME 30 days #30 caps 07/11/25 prazosin 5 mg capsule 15 mg PO BEDTIME 30 days #90 caps 07/11/25 cyproheptadine 4 mg tablet 4 mg PO BEDTIME 30 days #30 tabs 07/23/25 diphenhydramine HCl 50 mg capsule 50 mg PO BEDTIME insomnia 30 days 07/23/25 (Banophen) #30 caps sennosides 8.6 mg tablet (Senna 17.2 mg (2 x 8.6 mg) PO BEDTIME 14 07/23/25 Lax) days #28 tabs Allergies Allergy/AdvReac Type Severity Reaction Status Date / Time carbamazepine (From TEGRETOL) AdvReac Mild Nausea and Verified 08/10/25 14:53 Vomiting topiramate (From Topamax) AdvReac Mild Nausea and Verified 08/10/25 14:53 Vomiting Review of Systems Constitutional: Constitutional: Reports as per HPI Eyes: Eyes: Reports as per HPI ENT: Reports as per HPI Cardiovascular: Cardiovascular: Reports as per HPI Respiratory: Respiratory: Reports as per HPI Gastrointestinal: Gastrointestinal: Reports as per HPI Genitourinary: Genitourinary: Reports as per HPI Musculoskeletal: Musculoskeletal: Reports as per HPI Integumentary/Breasts: Skin/Breast: Reports as per HPI Neurologic: Reports as per HPI Psychiatric: Psychiatric: Reports as per HPI Endocrine: Endocrine: Reports as per HPI Hematologic/Lymphatic: Hematologic/Lymphatic: Reports as per HPI Allergic/Immunologic: Allergic/Immunologic: Reports as per HPI PMF Past Medical History Attestation statement: The following information was validated with the patient. Source: old records reviewed and nursing notes reviewed Medical History Depression Schizoaffective disorder, depressive type Depression with suicidal ideation MDD (major depressive disorder), recurrent, severe, with psychosis Port-A-Cath in place History of electroconvulsive therapy COVID-19 COVID-19 Sprain of left foot Chronic post-traumatic stress disorder (PTSD) COPD (chronic obstructive pulmonary disease) Increased BMI GERD (gastroesophageal reflux disease) Recurrent major depression-severe Acute post-traumatic stress disorder Injury, self-inflicted Suicidal ideation Self-harming behavior Intentional self-harm Suicidal ideation Borderline personality disorder Schizoaffective disorder Adjustment disorder Asthma Depression Anxiety PTSD (post-traumatic stress disorder) Family History Family History Mother Brain cancer Other No family history of cardiac disease Social History Social History Household Members: Other Household Members Other:: [employer] Housing: Assisted Living Facility Housing Other:: skilled nursing Do you presently have visiting nurse or other home services: No Alcohol intake: never Comment: 5 min safety checks to maintain safety Patient Tobacco Use Status: Current everyday Tobacco user Tobacco use type: Cigarette Cigarette Packs Per Day: 0.5 Cigarettes Per Day: 10.0 Years Smoked: 20 Smoked in Last 30 Days: Yes e-Cigarette/Vaping Use: Former Use Second Hand Smoke Exposure: No Use of substances other than those prescribed or required for medical reasons: No Substance Use Type: Marijuana Advance Directives: No Advance Directives Information Provided: No Do you have a plan to hurt others: No Plan Patient : No service: No Current occupation: rt handed Sexual orientation: Straight/Heterosexual Physical Exam ED Vital Signs: Vital Signs - 24 hr 08/10/25 14:48 08/10/25 14:50 08/10/25 21:20 Temperature 97.6 F 97.6 F Pulse Rate 85 85 Respiratory Rate 16 16 Blood Pressure 120/80 120/80 129/80 Pulse Oximetry 97 97 Oxygen Delivery Method Room Air Room Air 08/10/25 21:20 08/10/25 21:21 08/11/25 06:09 Temperature 97.6 F Pulse Rate 98 Respiratory Rate 16 Blood Pressure 129/80 129/80 113/67 Pulse Oximetry 98 Oxygen Delivery Method Room Air BMI result Body Mass Index 40.0 Const General: cooperative, no acute distress, alert and awake Nutritional Appearance: well nourished Orientation/consciousness: patient oriented x3 HENMT Head: Yes normal to inspection and Yes atraumatic Ears: hearing grossly normal bilaterally and external ears normal General nose exam: Normal external nose present, no nasal discharge noted and no epistaxis Face and sinus: Yes normal facial exam, No abrasion and No laceration Mouth: Normal oral and palatal mucosa present, no drooling and no muffled voice Eyes General: appearance normal, both eyes and all related structures Periorbital: periorbital findings normal Eyelids: Yes eyelids normal Conjunctivae: conjunctivae normal Pupils: Equal, round and reactive pupils present EOM: EOMs intact bilaterally Neck Neck: Yes normal visual inspection and Yes full ROM Resp Effort & Inspection: normal respiratory effort and able to speak in complete sentences Neuro General: patient oriented x3, moves all extremities and CN's II-XI intact bilaterally Cranial nerves: Yes Equal, round and reactive pupils present Cognition (Neuro): normal cognition Extrem General: Yes normal to inspection, Yes full ROM and Yes capillary refill normal Psych Appearance: grossly normal Mental Status: mental status grossly normal Affect: Sad affect present Thought content: Suicidality present Course Course Course Narrative: 1224 08/11/2025 Kaylee Hilario PA-C ---> Patient re-evaluated by the CARE team and deemed safe for discharge to her assisted. Observation ended at 1224 on 08/11/2025. Medications Administered Generic Name Dose Route Start Last Admin Trade Name Griffinq PRN Reason Stop Dose Admin Benztropine Mesylate 0.5 mg 08/10/25 21:00 08/11/25 09:19 Benztropine Mesylate 0.5 Mg Tablet PO 0.5 mg BID SULEIMAN Administration Clonidine HCl 0.1 mg 08/10/25 21:00 08/11/25 09:20 Clonidine Hcl 0.1 Mg Tablet PO 0.1 mg TID SULEIMAN Administration Protocol Cyproheptadine HCl 4 mg 08/10/25 21:00 08/10/25 21:20 Cyproheptadine Hcl 4 Mg Tablet PO 4 mg BEDTIME SULEIMAN Administration Diphenhydramine HCl 50 mg 08/10/25 21:00 08/10/25 21:20 Diphenhydramine Hcl 25 Mg Capsule PO 50 mg BEDTIME SULEIMAN Administration Duloxetine HCl 30 mg 08/10/25 20:45 08/11/25 09:19 Duloxetine Hcl 30 Mg Capsule.Dr PO 30 mg DAILY SULEIMAN Administration Haloperidol 5 mg 08/10/25 21:00 08/11/25 09:19 Haloperidol 5 Mg Tablet PO 5 mg TID SULEIMAN Administration [place] Carbonate 900 mg 08/10/25 21:00 08/10/25 21:20 [place] Carbonate Er 450 Mg Tablet.Er PO 900 mg BEDTIME SULEIMAN Administration Loratadine 10 mg 08/10/25 20:45 08/11/25 09:19 Loratadine 10 Mg Tablet PO 10 mg DAILY SULEIMAN Administration Lorazepam 1 mg 08/10/25 21:00 08/11/25 09:20 Lorazepam 1 Mg Tablet PO 1 mg TID SULEIMAN Administration Omeprazole 20 mg 08/11/25 06:30 08/11/25 05:58 Omeprazole 20 Mg Capsule.Dr PO 20 mg Q48H SULEIMAN Administration Prazosin HCl 1 mg 08/10/25 21:00 08/10/25 21:21 Prazosin Hcl 1 Mg Capsule PO 1 mg BEDTIME SULEIMAN Administration Protocol Prazosin HCl 15 mg 08/10/25 21:00 08/10/25 21:20 Prazosin Hcl 5 Mg Capsule PO 15 mg BEDTIME SULEIMAN Administration Protocol Senna 17.2 mg 08/10/25 21:00 08/10/25 21:21 Sennosides 8.6 Mg Tablet PO 17.2 mg BEDTIME SULEIMAN Administration Vitamin D 25 mcg 08/10/25 20:45 08/11/25 09:19 Cholecalciferol (Vitamin D3) 25 Mcg Tablet PO 25 mcg DAILY SULEIMAN Administration Zolpidem Tartrate 10 mg 08/10/25 20:39 08/10/25 21:26 Zolpidem Tartrate 5 Mg Tablet PO 10 mg BEDTIME PRN Administration Insomnia Discontinued Medications Generic Name Dose Route Start Last Admin Trade Name Freq PRN Reason Stop Dose Admin Lorazepam 2 mg 08/10/25 15:04 08/10/25 15:26 Lorazepam 1 Mg Tablet PO 08/10/25 15:05 2 mg ONCE ONE Administration Medical Decision Making Medical Decision Making [facility] Narrative: Patient is a 40 year old assigned female at with a history history of COPD, PTSD, adjustment disorder, schizoaffective disorder, and borderline personality disorder presenting to the emergency department today with suicidal ideation. Patient's physical exam was as noted in the physical exam portion of this note. Patient's blood work was unremarkable. Patient's urine showed a possible UTI however, the patient is not currently having any symptoms and has had previously similar appearing urine analysis. Patient was evaluated by the CARE Team who recommended re-evaluating the patient tomorrow morning (08/11/2025). I explained my physical exam findings as well as all test results to the patient . I answered all questions asked by the patient. Patient verbalized agreement and understanding with this treatment plan and being re-evaluated on 08/11/2025. Patient placed in observation at 1459 on 08/10/2025 pending CARE re-evaluation. Differential Diagnosis Differential Diagnoses: The differential diagnosis associated with the presentation includes SI Chronic SI Depression Admission/Observation Consideration of admission/observation: Escalation of care including admission/observation considered Patient's disposition will be determined after CARE team re-evaluation on 08/11/2025 - patient placed in observation at 1459 on 08/10/2025. Consult Healthcare Provider Management of the patient was discussed with: Behavioral Health Provider (spoke with the CARE Team as noted in the MDM Rationale portion of this note. ) Lab Data MDM Lab Attestation statement: I reviewed the patient's lab results. My interpretation of these results are in the MDM Rationale portion of this note. 08/10/25 15:20 08/10/25 15:20 Labs: Lab Results 08/10/25 08/10/25 Range/Units 15:19 15:20 WBC 5.6 (4.8-10.8) X10*3/uL RBC 3.79 L (4.20-5.50) X10*6/uL Hgb 11.5 L (12.0-16.0) g/dl Hct 35.5 L (37.0-47.0) % MCV 93.7 (80.0-98.0) fL MCH 30.3 (27.0-33.0) pg MCHC 32.4 (31.0-35.0) g/dl RDW 13.1 (11.0-16.0) % Plt Count 248 (160-400) X10*3/uL MPV 10.4 (9.4-12.3) fL Immature Gran % (Auto) 0.4 (0.0-0.4) % Neut % (Auto) 70.7 (45-73) % Lymph % (Auto) 19.8 L (20-40) % [place] % (Auto) 6.8 (2-11) % Eos % (Auto) 1.8 (0-4) % Baso % (Auto) 0.5 (0-2) % Lymph # (Auto) 1.1 L (1.2-4.9) X10*3/uL [place] # (Auto) 0.4 (0.1-1.2) X10*3/uL Eos # (Auto) 0.1 (0.0-0.4) X10*3/uL Baso # (Auto) 0.0 (0.0-0.2) X10*3/uL Abs Immat Gran (auto) 0.02 (0.00-0.03) X10*3/uL Absolute Neuts (auto) 4.0 (2.0-8.3) x10*3/uL Absolute Nucleated RBC 0.000 (0.0-0.012) X10*3/uL Nucleated RBC % (auto) 0.0 (0.0-0.2) /100WBC Sodium 138 (135-145) mmol/L Potassium 4.0 (3.3-5.1) mmol/L Chloride 107 (96-108) mmol/L Carbon Dioxide 24 (22-29) mmol/L Anion Gap 11 L (12-20) BUN 7 L (9-16) mg/dL Creatinine 0.84 (0.5-1.4) mg/dL Estim Creat Clear Calc 87.7 Estimated GFR > 60 Random Glucose 124 H (60-115) mg/dL Calcium 9.2 (8.4-10.2) mg/dL Total Bilirubin 0.2 (0.0-1.0) mg/dL AST 13 (5-31) U/L ALT 12 (0-31) U/L Alkaline Phosphatase 60 (39-117) U/L Total Protein 6.4 L (6.5-8.0) g/dL Albumin 3.9 (3.5-5.0) g/dL Urine Color Dark Yellow Urine Appearance Cloudy Urine pH 6.0 (5.0-9.0) Ur Specific [place] 1.025 (1.005-1.025) Urine Protein 100 (2+) H (Neg-Trace) mg/dL Urine Glucose (UA) Negative (Negative) mg/dL Urine Ketones 15 (Negative) mg/dL Urine Blood Large (3+) H (Negative) Urine Nitrite Negative (Negative) Ur Leukocyte Esterase Small (1+) H (Negative) Urine RBC >20 H (0-2) /HPF Urine WBC 0-5 (0-5) /HPF Ur Squamous Epith Cells 6-10 (0-2) /HPF Urine Bacteria 1+ (None Seen) Hyaline Casts 0-2 (0-2) /LPF Urine Test NEGATIVE (NEGATIVE) Salicylates < 5.0 L (15-30) mg/dL Urine Opiates Screen Not Detected (Not Detect) Ur Buprenorphine Scrn Not Detected (Not Detect) ng/mL Ur Oxycodone Screen Not Detected (Not Detect) ng/mL Urine Methadone Screen Not Detected (Not Detect) ng/mL Urine Fentanyl Screen Not Detected (Not Detect) Acetaminophen < 3 (<30) mcg/mL Ur Barbiturates Screen Not Detected (Not Detect) Ur Phencyclidine Scrn Not Detected (Not Detect) Ur Amphetamines Screen Not Detected (Not Detect) U Benzodiazepines Scrn Not Detected (Not Detect) Urine Cocaine Screen Not Detected (Not Detect) U Marijuana (THC) Screen POSITIVE H (Not Detect) Ethyl Alcohol < 10 mg/dL COVID-19 (RAFAL) Negative (Negative) COVID-19 Clin Com See Note Independent Historian Clinical information obtained from an independent historian. History obtained from or confirmed by: EMS (EMS provided additional history and confirmed the history provided by the patient. ) External Record Review External record reviewed: Inpatient record (reviewed previous psychiatric admissions) Critical Care Time Critical Care Time Critical Care Time: Yes Total Critical Care Time: 37 Attestation: I spent 37 minutes of Critical Care Time with this patient. This does not include time spent on separately reported billable procedures. Discharge Plan Discharge Clinical Impression: Suicidal ideation Additional Instructions: You were seen for a concern regarding your mental / behavioral behavioral health. It is important after this visit today that you follow up with either your mental / behavioral health or primary care provider within 7 days (from today).? Return for any worsening symptoms or concerns such as thoughts of harming yourself or others. Please call 911 immediately if you feel your mental health is worsening.? National Suicide and Crisis Lifeline: Available 24 hours a day, 7 days a week, 365 days a year Dial 208 with any telephone to speak to someone immediately [facility] (Mental / Behavioral health therapist: [address] [place] [address] [facility] at [facility]: [address] [place] [address] Open from 10am - 12pm (walk ins welcome) [facility]: [address] [place] [address] Walk in hours from 10am - 12pm [facility] health Network: [address] [place] [id number] [address] [place] [address] Wednesday through Wednesday 8am - 8pm Wednesday and Wednesday 9am - 5pm IF you are prescribed medications and/or you are taking over the counter medications - it is very important you continue to do so as prescribed / directed unless told otherwise. Follow up with your primary care provider. Return to the emergency department immediately if your symptoms worsen or if you develop any numbness, tingling, dizziness, shortness of breath, difficulty breathing, chest pain, blurry vision, loss of vision, nausea, vomiting, abdominal pain, fever, chills, back pain, or any other complaints. Prescriptions: No Action omeprazole 20 mg capsule,delayed release(DR/EC) 20 mg PO Q OTHER DAY cholecalciferol (vitamin D3) [Vitamin D3] 25 mcg (1,000 unit) tablet 25 mcg PO DAILY albuterol sulfate 90 mcg/actuation HFA aerosol inhaler 2 puff inhalation Q4-6H PRN (Reason: shortness of breath or wheezing) Qty: 6.7 0RF clonidine HCl 0.1 mg Tablet 0.1 mg PO TID 30 Days Qty: 90 0RF Protocol: Hold for SBP< HOLD for SBP < : 90 prazosin 1 mg Capsule 1 mg PO BEDTIME 30 Days Qty: 30 0RF Protocol: Hold for SBP< HOLD for SBP < : 90 benztropine 0.5 mg Tablet 0.5 mg PO BID 30 Days Qty: 60 0RF prazosin 5 mg Capsule 15 mg PO BEDTIME 30 Days Qty: 90 0RF Protocol: Hold for SBP< HOLD for SBP < : 90 hydroxyzine HCl 50 mg Tablet 50 mg PO DAILY PRN (Reason: mild anxiety) 30 Days Qty: 30 0RF lithium carbonate 450 mg Tablet Extended Release 900 mg PO BEDTIME 30 Days Qty: 60 0RF lorazepam 1 mg Tablet 1 mg PO TID 30 Days Qty: 90 0RF multivitamin Tablet 1 tab PO DAILY calcium carbonate-vitamin D3 600 mg-10 mcg (400 unit) tablet 1 tab PO BID cetirizine 10 mg tablet 10 mg PO DAILY duloxetine 30 mg capsule,delayed release(DR/EC) 30 mg PO DAILY cyproheptadine 4 mg Tablet 4 mg PO BEDTIME 30 Days Qty: 30 0RF sennosides [Senna Lax] 8.6 mg Tablet 17.2 mg PO BEDTIME 14 Days Qty: 28 0RF diphenhydramine HCl [Banophen] 50 mg capsule 50 mg PO BEDTIME 30 Days Qty: 30 0RF haloperidol 5 mg tablet 5 mg PO TID haloperidol decanoate 50 mg/mL solution 50 mg IM QMONTH zolpidem 10 mg tablet 10 mg PO BEDTIME PRN (Reason: insomnia) Referrals: Hafsa Holcomb NP [Primary Care Provider, Medical] Interventions: [place]-Suicide Risk Severity Scale Last Done: 08/10/25 14:55 Print Language: Irish
[2025-08-10 15:27] LABS: MANUAL DIFF FLAG NO
[2025-08-10 15:32] LABS: Hematocrit 35.5 % (37.0-47.0); Hemoglobin 11.5 g/dl (12.0-16.0); Imm Gran Abs Auto 0.02 X10*3/uL (0.00-0.03); Imm Gran Pct Auto 0.4 % (0.0-0.4); Lymphocytes Absolute Auto 1.1 X10*3/uL (1.2-4.9); Mean Corpuscular HGB Conc 32.4 g/dl (31.0-35.0); Mean Corpuscular Hemoglobin 30.3 pg (27.0-33.0); Mean Corpuscular Volume 93.7 fL (80.0-98.0); NRBC Abs Auto 0.000 X10*3/uL (0.0-0.012); NRBC Pct Auto 0.0 /100WBC (0.0-0.2); Platelet Count 248 X10*3/uL (160-400); Red Blood Count 3.79 X10*6/uL (4.20-5.50); White Blood Count 5.6 X10*3/uL (4.8-10.8)
[2025-08-10 15:36] LABS: UPreg QC Valid YES
[2025-08-10 15:39] LABS: Appearance Urine Cloudy; Glucose Urine UA Negative (Negative); PH 6.0 (5.0-9.0); Specific Gravity - Urine 1.025 (1.005-1.025); UMIC TRIGGER UA YES
[2025-08-10 15:46] LABS: Cannabinoid Screen Urine POSITIVE (Not Detect)
[2025-08-10 15:47] LABS: IDNOW Serial# 58CA691E
--- OUTSIDE RECORDS SUMMARY | 2025-08-10 15:47 | XMS_ITS | Patient Health Record ---
Author Organization [facility] Address [address] [place] [address] Care Team Providers Care Plant Electrician Name Role Phone COLETTE BRADY NP Primary Care Provider Adele Meier Unavailable [phone] Reason For Referral No Information Encounters Encounter Location Date Provider Diagnosis [facility] [address] [place] [address] 03/09/2025 Adele Fairchild Plan Of Treatment No Information Insurance Providers Payer Name Payer Address Payer Phone Subscriber Number Group Number Insured Name Patient Relationship to Insured Coverage Start Date Coverage End Date [facility] [address] [place] [id number] MELISA THORNTON Self - patient is the insured
--- OUTSIDE RECORDS SUMMARY | 2025-08-10 15:47 | XMS_ITS | Clinical Summary ---
Author Organization [facility] Address [address] [place] [address] Phone Care Team Providers Care Occupational Work Experience Teacher Name Role Phone Marcela Gaviria MD Primary Care Provider [phone] Allergies Active Allergy Reactions Criticality Noted Date [...] topic Medical Devices Not on file Insurance [employer] [facility] [place] [employer] [facility] [place] [employer] [facility] [place] [facility] D and K [facility] [place] Member Subscriber Plan / Payer (Ef fective 2020-Present) Name:Stella Capps Relation to Subscriber:Self Name:Stella Capps Payer ID:[id number] Group ID:Not on file Type:Medicaid Address: [place] [address] [place] [address] [facility] [place] [facility] donde[employer]sta™ [facility] [place] [address] [place] [address] [facility] [place] [facility] Care Teams Occupational Work Experience Teacher Relationship Specialty Start Date End Date Marcela Gaviria MD [address] [place] [id number] PCP - General Internal Medicine 12/20/23 Additional Source Comments The information contained in this document represents components of the legal health record. It is not the complete legal health record.[facility]
[2025-08-10 15:48] LABS: COVID-19 Test Negative (Negative)
--- NOTE | 2025-08-10 16:19 | PC.NURSE ---
ILANA from home. Patient presents to ED with SI no plan. Patient reports hearing voices telling her to kill herself Denies HI and Visual hallucinations. Patient reports feeling anxious and didn't get her 2pm Notified provider, Administered PRN ativan, positive effect PAtient remains calm and cooperative
[2025-08-10 16:23] LABS: Alanine Aminotransferase 12 U/L (0-31); Albumin Level 3.9 g/dL (3.5-5.0); Alkaline Phosphatase 60 U/L (39-117); Anion Gap 11 (12-20); Aspartate Amino Transferase 13 U/L (5-31); Blood Urea Nitrogen 7 mg/dL (9-16); Calcium 9.2 mg/dL (8.4-10.2); Carbon Dioxide 24 mmol/L (22-29); Chloride 107 mmol/L (96-108); Creatinine Clr Calc Pharmacy 87.7; Estimated Glomerular Filt Rate > 60; Potassium 4.0 mmol/L (3.3-5.1); Sodium 138 mmol/L (135-145); Total Protein 6.4 g/dL (6.5-8.0)
[2025-08-10 17:01] LABS: Acetaminophen LAB < 3 mcg/mL (<30)
--- NOTE | 2025-08-10 18:13 | MHC.CARE ---
Care Team SIA reached out to Pt's skilled nursing and spoke to Bryan. He was made aware that Pt would be staying the night at [facility] and that a decision would be made in the am about next steps. Pt is unable to fully contract for safety therefore was deemed a follow up. Bryan thanked Care Team SIA for the update.
[2025-08-10 19:43] LABS: Salicylate < 5.0 mg/dL (15-30)
--- NOTE | 2025-08-10 20:24 | HE.PHANOTE ---
Re Haloperidol Patient was here and discharged earlier this month. Her last dose of Haloperidol decanoate was 75mg IM on 07/18/25 with the next one due on 08/15/25.
[2025-08-10 21:20] VITALS: BP 129/80
[2025-08-10 21:21] VITALS: BP 129/80
[2025-08-11 06:09] VITALS: BP 113/67; PULSE 98; RESP 16; TEMP 36.4; O2SAT 98
--- NOTE | 2025-08-11 08:45 | PC.NURSE ---
Pt observed sleeping on bed, resps even and unlabored, breakfast tray available at bedside.
[2025-08-11 12:34] VITALS: BP 136/90; PULSE 89; RESP 16; TEMP 36.6; O2SAT 99
== END 2025-08-11 12:34 | disposition home or self-care (01) ==
PROVIDERS: Physician Assistant Medical; Emergency Provider Emergency Medicine; PCP Nurse Practitioner Family
DX: R45.851 Suicidal ideations (principal); R41.9 Unspecified symptoms and signs involving cognitive functions and awareness; F25.9 Schizoaffective disorder, unspecified; Z03.818 Encounter for observation for suspected exposure to other biological agents ruled out; F43.10 Post-traumatic stress disorder, unspecified; J44.9 Chronic obstructive pulmonary disease, unspecified; F60.3 Borderline personality disorder; Z79.899 Other long term (current) drug therapy; F17.200 Nicotine dependence, unspecified, uncomplicated; Z71.6 Tobacco abuse counseling
CPT/HCPCS: 80053; 80143; 80179; 80307; 81001; 81025; 85025; 87635; 99285; S9485

== ENCOUNTER 2025-08-11 21:23 | Emergency (ER) | payer OTHER, SELFPAY ==
--- OUTSIDE RECORDS SUMMARY | 2025-03-09 04:40 | XMS_ITS ---
Author Organization [facility] [employer] [facility] Address [address] [address] Care Team Providers Care Corrosion Control Technician Name Role Phone JOSE ANTONIO MENON, COLETTE Primary Care Provider Adele Meier Unavailable [phone] REASON FOR VISIT Annual JAVA GOLDEN GATE DEVELOPER Physical Encounters Encounter Location Date Provider Diagnosis [facility] [address] [address] 03/09/2025 Adele Fairchild Plan Of Treatment No Information Progress Notes * MELISA THORNTONDOB:1985 (40 yo F)Acc No.[id number]:03/09/2025 Progress Note Patient: MELISA VIEIRA Appointment Provider: Jeffery Fairchild M.D. :1985 A ge:39 Y S ex:Female Date:03/09/2025 Address:[address] [place], [place] [phone] Pcp:COLETTE BRADY NP Subjective: * Chief Complaints: * 1 . Annual JAVA GOLDEN GATE DEVELOPER Physical. * Medical History: Objective: * Vitals: Assessment: Plan: * Treatment: * Images: Billing Information: * Visit Code: * Procedure Codes: * Electronic signature of Leon Fairchild MD on 08/11/2025 at 09:51 PM EST Sign off status: Pending * Appointment Provider: Jeffery Fairchild M.D. Date: 0 03/09/2025 Generated for Lj marin/Jessika/Nickolasitting on: 10/12/2024 09:51 PM EST
[2025-08-11 21:31] VITALS: BP 112/86; BP 127/84; PULSE 120; PULSE 124; RESP 17; TEMP 36.3; O2SAT 100; O2SAT 96; BMI 38.4
--- NOTE | 2025-08-11 21:35 | ED.GENADULT ---
HPI - General Adult General Chief complaint: Psychiatric Symptoms Stated complaint: SI all day Time Seen by Provider: 08/11/25 21:33 Source: patient Mode of arrival: ambulatory Limitations: no limitations History of Present Illness ED Provider: Dr. Santana HPI narrative: This is a 40-year-old female history of depression presented hospital today for increased suicide ideation. Patient has been increasingly depressed and she lost her father around [place] time. She does have auditory hallucination denies any visual hallucinations. Related Data Home Medications ?Medication ?Instructions ?Recorded ?Confirmed omeprazole 20 mg capsule,delayed 20 mg PO Q OTHER DAY 04/30/24 08/10/25 release multivitamin 1 tab PO DAILY 05/17/24 08/10/25 cholecalciferol (vitamin D3) 25 25 mcg PO DAILY 07/29/24 08/10/25 mcg (1,000 unit) tablet (Vitamin D3) calcium 600 mg (as 1 tab PO BID 11/02/24 08/10/25 carbonate)-vitamin D3 10 mcg (400 unit) tablet cetirizine 10 mg tablet 10 mg PO DAILY 11/06/24 08/10/25 duloxetine 30 mg capsule,delayed 30 mg PO DAILY 07/17/25 08/10/25 release haloperidol 5 mg tablet 5 mg PO TID 08/10/25 08/10/25 haloperidol decanoate 50 mg/mL 50 mg IM QMONTH 08/10/25 08/10/25 intramuscular solution zolpidem 10 mg tablet 10 mg PO BEDTIME PRN insomnia 08/10/25 08/10/25 Previous Rx's ?Medication ?Instructions ?Recorded albuterol sulfate 90 mcg/actuation 2 puff inhalation Q4-6H PRN 08/30/24 aerosol inhaler shortness of breath or wheezing #6.7 grams benztropine 0.5 mg tablet 0.5 mg PO BID 30 days #60 tabs 07/11/25 clonidine HCl 0.1 mg tablet 0.1 mg PO TID 30 days #90 tabs 07/11/25 hydroxyzine HCl 50 mg tablet 50 mg PO DAILY PRN mild anxiety 30 07/11/25 days #30 tabs lithium carbonate 450 mg 900 mg (2 x 450 mg) PO BEDTIME 30 07/11/25 tablet,extended release days #60 tabs lorazepam 1 mg tablet 1 mg PO TID 30 days #90 tabs 07/11/25 prazosin 1 mg capsule 1 mg PO BEDTIME 30 days #30 caps 07/11/25 prazosin 5 mg capsule 15 mg PO BEDTIME 30 days #90 caps 07/11/25 cyproheptadine 4 mg tablet 4 mg PO BEDTIME 30 days #30 tabs 07/23/25 diphenhydramine HCl 50 mg capsule 50 mg PO BEDTIME insomnia 30 days 07/23/25 (Banophen) #30 caps sennosides 8.6 mg tablet (Senna 17.2 mg (2 x 8.6 mg) PO BEDTIME 14 07/23/25 Lax) days #28 tabs Allergies Allergy/AdvReac Type Severity Reaction Status Date / Time carbamazepine (From TEGRETOL) AdvReac Mild Nausea and Verified 08/11/25 21:35 Vomiting topiramate (From Topamax) AdvReac Mild Nausea and Verified 08/11/25 21:35 Vomiting Review of Systems Review of Systems: Pertinent review of systems as mentioned in HPI. All other system otherwise negative. [facility] Past Medical History [facility] Narrative: Medical history as mentioned in HPI Medical History Depression Schizoaffective disorder, depressive type Depression with suicidal ideation MDD (major depressive disorder), recurrent, severe, with psychosis Port-A-Cath in place History of electroconvulsive therapy COVID-19 COVID-19 Sprain of left foot Chronic post-traumatic stress disorder (PTSD) COPD (chronic obstructive pulmonary disease) Increased BMI GERD (gastroesophageal reflux disease) Recurrent major depression-severe Acute post-traumatic stress disorder Injury, self-inflicted Suicidal ideation Self-harming behavior Intentional self-harm Suicidal ideation Borderline personality disorder Schizoaffective disorder Adjustment disorder Asthma Depression Anxiety PTSD (post-traumatic stress disorder) Family History Family History Mother Brain cancer Other No family history of cardiac disease Social History Social History Household Members: Other Household Members Other:: [employer] Housing: Assisted Living Facility Housing Other:: senior care Do you presently have visiting nurse or other home services: No Alcohol intake: never Comment: 5 min safety checks to maintain safety Patient Tobacco Use Status: Current everyday Tobacco user Tobacco use type: Cigarette Cigarette Packs Per Day: 0.5 Cigarettes Per Day: 10.0 Years Smoked: 20 e-Cigarette/Vaping Use: Former Use Second Hand Smoke Exposure: No Use of substances other than those prescribed or required for medical reasons: Yes Substance Use Type: Marijuana and Prescription Drugs Advance Directives: No Advance Directives Information Provided: No service: No Current occupation: rt handed Sexual orientation: Straight/Heterosexual Physical Exam ED Exam Exam: General: Pleasant, no distress, interacting appropriately Head: Normacephalic, atraumatic ENT: oral mucosa moist, neck supple, no tracheal deviation Cardiovascular: regular rate, regular rhythm, no murmurs, rubbing, gallops Respiratory: CTAB, no wheeze, rales, rhonchi Extremities: 0ld chronic laceration scar over the left forearm. Neurological: Awake and alert, no facial droop noted Skin: Warm and dry Psychiatric: Endorses suicide ideation Vital Signs: Vital Signs - 24 hr 08/11/25 21:31 08/12/25 06:52 Temperature 97.3 F 97.5 F Pulse Rate 120 H 62 Respiratory Rate 17 20 Blood Pressure 127/84 107/57 L Pulse Oximetry 100 100 Oxygen Delivery Method Room Air Room Air BMI result Body Mass Index 38.4 Course Reevaluation(s) Reevaluation #1: 9:41 AM 08/12/2025 (Tyson Lyman MD): The patient was seen by the care team this morning and was cleared for discharge to returned to her residential. Medications Administered Generic Name Dose Route Start Last Admin Trade Name Freq PRN Reason Stop Dose Admin Cephalexin HCl 500 mg 08/12/25 02:45 08/12/25 08:30 Cephalexin 500 Mg Capsule PO 500 mg TID SULEIMAN Administration Discontinued Medications Generic Name Dose Route Start Last Admin Trade Name Freq PRN Reason Stop Dose Admin Lorazepam 0.5 mg 08/11/25 22:00 08/11/25 22:09 Lorazepam 0.5 Mg Tablet PO 08/11/25 22:01 0.5 mg ONCE ONE Administration Medical Decision Making Medical Decision Making MDM Narrative: 40-year-old female history of depression presented hospital today for suicide ideation. Care team will be consulted for the patient does time. We will plan to give patient a dose of p.o. Ativan for her anxiety. Patient will be signed out to oncoming provider pending care team evaluation at this time. Differential Diagnosis Differential Diagnoses: The differential diagnosis associated with the presentation includes Depression, SI Lab Data MDM Lab Attestation statement: I reviewed the patient's lab results. Labs: Lab Results 08/11/25 Range/Units 22:41 Urine Color Yellow Urine Appearance Clear Urine pH 7.0 (5.0-9.0) Ur Specific [place] 1.010 (1.005-1.025) Urine Protein Negative (Neg-Trace) mg/dL Urine Glucose (UA) Negative (Negative) mg/dL Urine Ketones Negative (Negative) mg/dL Urine Blood Large (3+) H (Negative) Urine Nitrite Negative (Negative) Ur Leukocyte Esterase Moderate (2+) H (Negative) Urine RBC 0-2 (0-2) /HPF Urine WBC 0-5 (0-5) /HPF Ur Squamous Epith Cells 11-20 (0-2) /HPF Urine Bacteria 3+ (None Seen) Hyaline Casts 0-2 (0-2) /LPF Urine Opiates Screen Not Detected (Not Detect) Ur Buprenorphine Scrn Not Detected (Not Detect) ng/mL Ur Oxycodone Screen Not Detected (Not Detect) ng/mL Urine Methadone Screen Not Detected (Not Detect) ng/mL Urine Fentanyl Screen Not Detected (Not Detect) Ur Barbiturates Screen Not Detected (Not Detect) Ur Phencyclidine Scrn Not Detected (Not Detect) Ur Amphetamines Screen Not Detected (Not Detect) U Benzodiazepines Scrn Not Detected (Not Detect) Urine Cocaine Screen Not Detected (Not Detect) U Marijuana (THC) Screen POSITIVE H (Not Detect) Discharge Plan Discharge Clinical Impression: Depression Patient Disposition: Home, Self-Care Additional Instructions: You were seen in our Emergency Department today for treatment of a behavioral health issue. It is important after your visit that you follow up with either your behavioral health provider or a primary care doctor within 7 days.? The National Suicide and Crisis Lifeline can be reached 7 days a week 24 hours a day.? Call 988 to speak with someone.? Return for any worsening symptoms or concerns such as thoughts of self harm or harm to others. Please call 911 if you feel your mental health is worsening.? Prescriptions: No Action omeprazole 20 mg capsule,delayed release(DR/EC) 20 mg PO Q OTHER DAY cholecalciferol (vitamin D3) [Vitamin D3] 25 mcg (1,000 unit) tablet 25 mcg PO DAILY albuterol sulfate 90 mcg/actuation HFA aerosol inhaler 2 puff inhalation Q4-6H PRN (Reason: shortness of breath or wheezing) Qty: 6.7 0RF clonidine HCl 0.1 mg Tablet 0.1 mg PO TID 30 Days Qty: 90 0RF Protocol: Hold for SBP< HOLD for SBP < : 90 prazosin 1 mg Capsule 1 mg PO BEDTIME 30 Days Qty: 30 0RF Protocol: Hold for SBP< HOLD for SBP < : 90 benztropine 0.5 mg Tablet 0.5 mg PO BID 30 Days Qty: 60 0RF prazosin 5 mg Capsule 15 mg PO BEDTIME 30 Days Qty: 90 0RF Protocol: Hold for SBP< HOLD for SBP < : 90 hydroxyzine HCl 50 mg Tablet 50 mg PO DAILY PRN (Reason: mild anxiety) 30 Days Qty: 30 0RF lithium carbonate 450 mg Tablet Extended Release 900 mg PO BEDTIME 30 Days Qty: 60 0RF lorazepam 1 mg Tablet 1 mg PO TID 30 Days Qty: 90 0RF multivitamin Tablet 1 tab PO DAILY calcium carbonate-vitamin D3 600 mg-10 mcg (400 unit) tablet 1 tab PO BID cetirizine 10 mg tablet 10 mg PO DAILY duloxetine 30 mg capsule,delayed release(DR/EC) 30 mg PO DAILY cyproheptadine 4 mg Tablet 4 mg PO BEDTIME 30 Days Qty: 30 0RF sennosides [Senna Lax] 8.6 mg Tablet 17.2 mg PO BEDTIME 14 Days Qty: 28 0RF diphenhydramine HCl [Banophen] 50 mg capsule 50 mg PO BEDTIME 30 Days Qty: 30 0RF haloperidol 5 mg tablet 5 mg PO TID haloperidol decanoate 50 mg/mL solution 50 mg IM QMONTH zolpidem 10 mg tablet 10 mg PO BEDTIME PRN (Reason: insomnia) Referrals: Hafsa Holcomb NP [Nurse Practitioner, Medical] Clementina Layton MD [Physician, Psychiatry] Interventions: [place]-Suicide Risk Severity Scale Last Done: 08/11/25 22:58 Print Language: Surinamese
--- OUTSIDE RECORDS SUMMARY | 2025-08-11 21:52 | XMS_ITS | Clinical Summary ---
Author Organization [facility] Address [address] [place] [id number] Phone Care Team Providers Care Manager Forms Name Role Phone Marcela Gaviria MD Primary Care Provider [phone] Allergies Active Allergy Reactions Criticality Noted Date [...] topic Medical Devices Not on file Insurance [employer] [facility] [place] [employer] [facility] [place] [employer] [place] [facility] [place] Member Subscriber Plan / Payer (Ef fective 2020-Present) Name:Stella Capps Relation to Subscriber:Self Name:Stella Capps Payer ID:[id number] Group ID:Not on file Type:Medicaid Address: [place] [address] [place] [address] [facility] [place] [facility] [employer] [facility] [place] [address] [address] [address] [place] [facility] Care Teams Manager Forms Relationship Specialty Start Date End Date Marcela Gaviria MD [address] [place] [phone] PCP - General Internal Medicine 12/20/23 Additional Source Comments The information contained in this document represents components of the legal health record. It is not the complete legal health record.[facility]
--- OUTSIDE RECORDS SUMMARY | 2025-08-11 21:52 | XMS_ITS | Patient Health Record ---
Author Organization [employer] [facility] Address [address] [place] [address] Care Team Providers Care Nut Dehydrator Operator Name Role Phone COLETTE BRADY NP Primary Care Provider Adele Meier Unavailable [phone] Reason For Referral No Information Encounters Encounter Location Date Provider Diagnosis [facility] [employer] [facility] [address] [place] [address] 03/09/2025 Adele Fairchild Plan Of Treatment No Information Insurance Providers Payer Name Payer Address Payer Phone Subscriber Number Group Number Insured Name Patient Relationship to Insured Coverage Start Date Coverage End Date [facility] [id number] [place] [id number] MELISA THORNTON Self - patient is the insured
--- NOTE | 2025-08-11 22:39 | PC.NURSE ---
tri Damon, care team staff, advised to hold off on lab draw as she was just seen this morning, and will be seen by care team tomorrow morning. CHANDLER and ANNIE sent.
[2025-08-11 22:53] LABS: Appearance Urine Clear; Glucose Urine UA Negative (Negative); PH 7.0 (5.0-9.0); Specific Gravity - Urine 1.010 (1.005-1.025); UMIC TRIGGER UACC YES
[2025-08-11 23:03] LABS: Cannabinoid Screen Urine POSITIVE (Not Detect)
[2025-08-11 23:16] LABS: UACC Culture Trigger YES
[2025-08-12 06:52] VITALS: BP 107/57; PULSE 62; RESP 20; TEMP 36.4; O2SAT 100
[2025-08-12 10:18] VITALS: BP 107/57; PULSE 62; RESP 20; TEMP 36.4; O2SAT 100
== END 2025-08-12 10:18 | disposition home or self-care (01) ==
PROVIDERS: Emergency Provider Student in an Organized Health Care Education/Training Program
DX: F32.A Depression, unspecified (principal); R45.851 Suicidal ideations; R44.0 Auditory hallucinations; F60.3 Borderline personality disorder; F43.29 Adjustment disorder with other symptoms; J44.9 Chronic obstructive pulmonary disease, unspecified; F12.90 Cannabis use, unspecified, uncomplicated; Z79.899 Other long term (current) drug therapy
CPT/HCPCS: 80307; 81001; 87086; 99284; 99285; S9485